=== PATIENT | female | born 1970 | race Caucasian/White ===

== ENCOUNTER 2016-12-20 20:10 | Outpatient (CLI) | payer MEDICAID ==
[~2016-12-20 20:10] MED LIST: ALPR2TAB6 PO; AMIT25TA9; ATOR40TA70; BUDE10.22 IH; CARB200T6; CYPR4TAB; DOXE150C PO; GLIP5TAB13 PO; HYDR-3812; HYDR-3820 PO; HYDR50CA PO; LEVO150T6 PO; METF500T8; MONT10TA24 PO; NITR0.4T; OLAN10TA19 PO; OLAN2.5T19; RT-ALBUINH; VENL75CA
--- OUTSIDE RECORDS SUMMARY | 2016-12-20 20:40 | XMS REPORT | Continuity of Care Document ---
Author Author [facility] Organization [facility] Address Unknown Phone Unavailable Care Team Providers Care Factory Expert Name Role Phone PCP Unavailable Source Comments Some departments are not documenting in the electronic medical record. If you do not see the information that you expected, contact Release of Information in the Health Information Management department at [phone] for further assistance in locating additional records.[facility] Active Allergies and Adverse Reactions Not on File Current Medications Not on file Active Problems Not on file Social History Tobacco Use Types Packs/Day Years Used Date Never Assessed Plan of Care Health Maintenance Due Date Last Done Comments Physical (Comprehensive) 1977 Exam Pertussis Vaccine 1981 Tetanus Vaccine 1987 Cervical Cancer Screening 1991 Breast Cancer Screening 2010 Influenza Vaccine 07/03/2016 Results from Last 3 Months Not on file
== END 2016-12-21 06:10 | disposition home or self-care (01) ==
LOC: SLEEP 20:10
PROVIDERS: ATTEND Internal Medicine Critical Care Medicine
DX: R06.83 Snoring (principal)
CPT/HCPCS: 95810

== ENCOUNTER → 2017-01-12 | Outpatient (CLI) | payer MEDICAID ==
[~2017-01-12] MED LIST changes: +ALBU1.25 IH; +ASPI-999 PO; +ATEN25TA PO; +ATOR40TA70 PO; +CIPR-225 PO; +CIPR500T4 PO; +ESLI400T PO; +INSU100I14 SQ; +INSU100I29 SQ; +LACO200T2 PO; +LEVO750T9 PO; +METR500T PO; +METR500T21 PO; +ONDA8TAB13 PO; +ONDA8TAB9 PO; +PROM25TA14 PO; +RANI150T11 PO; +RT-ALBUINH IH; +VENL150C98 PO; +VENL75CA93 PO
--- OUTSIDE RECORDS SUMMARY | 2017-01-12 09:15 | XMS REPORT | Continuity of Care Document ---
Author Author [facility] Organization [facility] Address Unknown Phone Unavailable Care Team Providers Care Director Of Optimization Name Role Phone PCP Unavailable Source Comments Some departments are not documenting in the electronic medical record. If you do not see the information that you expected, contact Release of Information in the Health Information Management department at [phone] for further assistance in locating additional records.[facility] Active Allergies and Adverse Reactions Not on [...]
--- NOTE | 2017-01-13 13:41 | ELECTROENCEPHALOPATHY REPORT ---
PROCEDURE PHYSICIAN: PRESTON HOLLEY DATE OF PROCEDURE: 01/12/2017 Ms. Humera Flores is a 46-year-old female with a history of seizure disorder for past 2 years. Seizures are described as tonic and a rigid activity and with shaking. Approximately 3 months ago she had dizzy spell and she fell and blacked out. This study was requested to evaluate for epileptiform activity. The background rhythm consisted of 8 to 9 Hz, 60 to 70 microvolts in amplitude, bilaterally symmetrical over the vertex region which was reactive to eye opening. Intermix were few left temporal sharp waves and few spike and wave activity in both frontal areas. Beta activity 16 to 20 Hz in frequency was noted. Movement and muscle artifacts were present. The patient was awake, drowsy and asleep during this recording. Hyperventilation was performed and there was build-up of mild diffuse slow wave activity. Intermittent photic stimulation was done at various flash frequencies and no photic driving response was seen. IMPRESSION: This EEG is abnormal in awake and sleepy states. The epileptiform activity described above is suggestive of a seizure focus in left temporal lobe and a generalized seizure activity as well. Clinical correlation is suggested. Job ID: [id number] Dictated Date: 01/13/2017 12:58:42 Encephalographer Date: 01/13/2017 13:36:40 / geronimo
== END ==
LOC: RT 09:12
PROVIDERS: ATTEND Psychiatry & Neurology Neurology
DX: R56.9 Unspecified convulsions (principal)
CPT/HCPCS: 95819

== ENCOUNTER 2017-01-23 12:34 | Emergency (ER) | payer MEDICAID ==
[~2017-01-23] VITALS: Ht 157.5 cm; Wt 90.7 kg
[~2017-01-23 12:34] MED LIST changes: -ALBU1.25 IH; -ASPI-999 PO; -ATEN25TA PO; -ATOR40TA70 PO; -CIPR-225 PO; -CIPR500T4 PO; -ESLI400T PO; -INSU100I14 SQ; -INSU100I29 SQ; -LACO200T2 PO; -LEVO750T9 PO; -METR500T PO; -METR500T21 PO; -ONDA8TAB13 PO; -ONDA8TAB9 PO; -PROM25TA14 PO; -RANI150T11 PO; -RT-ALBUINH IH; -VENL150C98 PO; -VENL75CA93 PO
--- NOTE | 2017-01-23 13:20 | ED General ---
General Stated Complaint: FEVER/CHILLS CONSTIPATION/DIARRHEA Source of Information: Patient Exam Limitations: No Limitations History of Present Illness Time Seen by Provider: 13:19 Initial Comments To ER with watery diarrhea as well as constipation, fever up to 103, productive cough and abdominal pain for the past 3-4 days. Timing/Duration: 3-4 Days Severity: Moderate Associated Systoms: Cough, Fever/Chills, Nausea/Vomiting Allergies and Home Medications Allergies Coded Allergies: Penicillins (Verified Allergy, Unknown, 06/16/06) Home Medications Albuterol Sulfate 6.7 Gm Hfa.aer.ad, #7 (Reported) Alprazolam 2 Mg Tablet, #75 (Reported) Atorvastatin Calcium 40 Mg Tablet, #30 (Reported) Budesonide/Formoterol Fumarate 10.2 Gm Hfa.aer.ad, #10 (Reported) Carbamazepine 200 Mg Tablet, #120 (Reported) Cyproheptadine HCl 4 Mg Tablet, #30 (Reported) Doxepin HCl 150 Mg Capsule, #30 (Reported) Glipizide 5 Mg Tablet, 5 MG PO DAILY, (Reported) Hydrocodone/Acetaminophen 1 Each Tablet, 1 EACH PO Q4H PRN for PAIN, #20 Ref 0 Prescribed by: JACKY ALCARAZ on 02/10/16 1302 Hydroxyzine Pamoate 50 Mg Capsule, 50 MG PO HS, (Reported) Levothyroxine Sodium 150 Mcg Tablet, 150 MCG PO DAILY, (Reported) Montelukast Sodium 10 Mg Tablet, #30 (Reported) Olanzapine 10 Mg Tablet, #30 (Reported) Olanzapine 2.5 Mg Tablet, #30 (Reported) Venlafaxine HCl 75 Mg Cap.er.24h, #90 (Reported) Constitutional: see HPI EENTM: see HPI Respiratory: see HPI, cough Gastrointestinal: abdominal pain, diarrhea Genitourinary: no symptoms reported Musculoskeletal: no symptoms reported Skin: no symptoms reported Psychiatric/Neurological: No Symptoms Reported Hematologic/Lymphatic: No Symptoms Reported Past Nxsgfbj-Vkvjwc-Fwcawe Hx Patient Social History Type Used: Cigarettes Recent Foreign Travel: No Contact w/Someone Who Travel: No Immunizations Up To Date Date of Pneumonia Vaccine: Jul 11, 2014 Surgeries HX Surgeries: No Respiratory Hx Respiratory Disorders: Yes Respiratory Disorders: COPD Cardiovascular Hx Cardiac Disorders: Yes Cardiac Disorders: Heart Attack, High Cholesterol, Hypertension Neurological Hx Neurological Disorders: No Genitourinary Hx Genitourinary Disorders: No Gastrointestinal Hx Gastrointestinal Disorders: No Musculoskeletal Hx Musculoskeletal Disorders: Yes (chronic pain) Endocrine Hx Endocrine Disorders: Yes Endocrine Disorders: Diabetes, Non-Insulin dep HEENT HX ENT Disorders: No Cancer Hx Cancer: No Psychosocial Hx Psychiatric Problems: No Family Medical History Significant Family History: No Pertinent Family Hx Physical Exam Vital Signs Vital Sign - Last 12Hours 01/23/17 12:43 Temp 97.6 Pulse 133 Resp 18 B/P (MAP) 144/98 Capillary Refill : General Appearance: No Apparent Distress, WD/WN Eyes: Bilateral Eye EOMI, Bilateral Eye Normal Inspection, Bilateral Eye PERRL HEENT: PERRL/EOMI, TMs Normal Neck: Full Range of Motion, Normal Inspection Respiratory: No Accessory Muscle Use, No Respiratory Distress Cardiovascular: Normal Peripheral Pulses, Tachycardia Gastrointestinal: Non Tender, Soft Neurologic/Psychiatric: Alert, Oriented x3 Skin: Normal Color, Warm/Dry Progress/Results/Core Measures Results/Orders Lab Results Laboratory Tests Test 01/23/17 13:15 01/23/17 14:06 Range/Units White Blood Count 7.4 4.3-11.0 10^3/uL Red Blood Count 4.59 4.35-5.85 10^6/uL Hemoglobin 15.1 11.5-16.0 G/DL Hematocrit 43 35-52 % Mean Corpuscular Volume 95 80-99 FL Mean Corpuscular Hemoglobin 33 25-34 PG Mean Corpuscular Hemoglobin Concent 35 32-36 G/DL Red Cell Distribution Width 12.7 10.0-14.5 % Platelet Count 276 130-400 10^3/uL Mean Platelet Volume 9.6 7.4-10.4 FL Neutrophils (%) (Auto) 70 42-75 % Lymphocytes (%) (Auto) 19 12-44 % Monocytes (%) (Auto) 8 0-12 % Eosinophils (%) (Auto) 3 0-10 % Basophils (%) (Auto) 0 0-10 % Neutrophils # (Auto) 5.2 1.8-7.8 X 10^3 Lymphocytes # (Auto) 1.4 1.0-4.0 X 10^3 Monocytes # (Auto) 0.6 0.0-1.0 X 10^3 Eosinophils # (Auto) 0.2 0.0-0.3 10^3/uL Basophils # (Auto) 0.0 0.0-0.1 10^3/uL Sodium Level 138 135-145 MMOL/L Potassium Level 4.3 3.6-5.0 MMOL/L Chloride Level 102 98-107 MMOL/L Carbon Dioxide Level 21 21-32 MMOL/L Anion Gap 15 H 5-14 MMOL/L Blood Urea Nitrogen 7 7-18 MG/DL Creatinine 0.89 0.60-1.30 MG/DL Estimat Glomerular Filtration Rate > 60 BUN/Creatinine Ratio 8 Glucose Level 220 H 70-105 MG/DL Calcium Level 9.8 8.5-10.1 MG/DL Total Bilirubin 0.4 0.1-1.0 MG/DL Aspartate Amino Transf (AST/SGOT) 30 5-34 U/L Alanine Aminotransferase (ALT/SGPT) 38 0-55 U/L Alkaline Phosphatase 93 40-136 U/L Total Protein 7.3 6.4-8.2 G/DL Albumin 4.2 3.2-4.5 G/DL Urine Color YELLOW Urine Clarity SLIGHTLY CLOUDY Urine pH 7 5-9 Urine Specific [place] 1.005 L 1.016-1.022 Urine Protein NEGATIVE NEGATIVE Urine Glucose (UA) NEGATIVE NEGATIVE Urine Ketones NEGATIVE NEGATIVE Urine Nitrite NEGATIVE NEGATIVE Urine Bilirubin NEGATIVE NEGATIVE Urine Urobilinogen NORMAL NORMAL MG/DL Urine Leukocyte Esterase NEGATIVE NEGATIVE Urine RBC (Auto) 1+ H NEGATIVE Urine RBC 0-2 /HPF Urine WBC NONE /HPF Urine Squamous Epithelial Cells 5-10 /HPF Urine Crystals NONE /LPF Urine Bacteria FEW H /HPF Urine Casts NONE /LPF Urine Mucus NEGATIVE /LPF Urine Culture Indicated NO Urine Opiates Screen NEGATIVE NEGATIVE Urine Oxycodone Screen NEGATIVE NEGATIVE Urine Methadone Screen NEGATIVE NEGATIVE Urine Propoxyphene Screen NEGATIVE NEGATIVE Urine Barbiturates Screen NEGATIVE NEGATIVE Ur Tricyclic Antidepressants Screen NEGATIVE NEGATIVE Urine Phencyclidine Screen NEGATIVE NEGATIVE Urine Amphetamines Screen NEGATIVE NEGATIVE Urine Methamphetamines Screen NEGATIVE NEGATIVE Urine Benzodiazepines Screen POSITIVE H NEGATIVE Urine Cocaine Screen NEGATIVE NEGATIVE Urine Cannabinoids Screen NEGATIVE NEGATIVE Micro Results Microbiology 01/23/17 Influenza Types A,B Antigen (BRITTNEY) - Final, Complete My Orders Orders - GALA TALLEY [employer] W[employer]ER Cbc With Automated Diff (01/23/17 12:48) Comprehensive Metabolic Panel (01/23/17 12:48) Ua Culture If Indicated (01/23/17 12:48) Drug Screen Stat (Urine) (01/23/17 12:48) Saline Lock/Iv-Start (01/23/17 12:48) Ekg Tracing (01/23/17 12:48) Continuous Ekg Monitoring (01/23/17 12:48) Chest Pa/Lat (2 View) (01/23/17 13:18) Ns Iv 1000 Ml (Sodium Chloride 0.9%) (01/23/17 13:30) Influenza A And B Antigens (01/23/17 13:18) Ct Abdomen/Pelvis Wo (01/23/17 13:18) Vital Signs/I&O Vital Sign - Last 12Hours 01/23/17 12:43 Temp 97.6 Pulse 133 Resp 18 B/P (MAP) 144/98 Diagnostic Imaging Diagonstic Imaging: CT Comments NAME: YANETH YAÑEZ [facility] REC#: [id number] PT STATUS: REG ER : 1970 PHYSICIAN: GALA TALLEY APRN ADMIT DATE: 01/23/17/ER Draft Date of Exam:01/23/17 CT ABDOMEN/PELVIS WO PROCEDURE: CT abdomen and pelvis without contrast. TECHNIQUE: Multiple contiguous axial images were obtained through the abdomen and pelvis without the use of intravenous contrast. INDICATION: Diarrhea and constipation with dizziness. Febrile. FINDINGS: The lung bases are clear. Liver appears normal. Gallbladder and bile ducts are normal. The pancreas and spleen are normal. The adrenal glands are normal. The kidneys appear normal without obstruction or mass. There are no calculi. Ureters are normal. Aorta appears normal. Stomach and small bowel are not distended. The colon shows diverticulosis of the descending colon with mesenteric edema adjacent to diverticula in the mid descending colon consistent with acute diverticulitis. This is causing considerable edema. There is moderate stool proximal to this with no stool in the distal colon. Uterus is absent. There is no free air or free fluid. No abscesses. IMPRESSION: 1. Findings are consistent with acute diverticulitis of the mid descending colon. This is short segment in nature. No evidence of bowel perforation or abscess. Dictated on workstation # [id number] Dict: 01/23/17 1439 Trans: 01/23/17 1448 [id number] Interpreted by: BETZAIDA NAGEL MD Electronically signed by: Departure Communication Progress Notes She is not nauseated currently and will be able to tolerate oral intake. We will treat at home. Impression Impression: Primary Impression: Diverticulitis Disposition: 01 HOME, SELF-CARE Condition: Improved Departure-Patient Inst. Decision time for Depature: 14:58 Referrals: [facility] (PCP/Family) Primary Care Physician Patient Instructions: Diverticulitis (DC) Add. Discharge Instructions: 1. Drink plenty of fluids 2. No seeds or nuts 3. Return to ER for any worsening pain, high fevers or inability to take your oral antibiotics because of nausea 4. Follow-up with your doctor next week Scripts Metronidazole (Flagyl) 500 Mg Tablet 500 MG PO TID, #21 TAB Prov: GALA TALLEY APRN 01/23/17 Ciprofloxacin HCl (Cipro) 500 Mg Tablet 500 MG PO BID, #14 TAB Prov: GALA TALLEY APRN 01/23/17 Ondansetron (Zofran Odt) 8 Mg Tab.rapdis 8 MG PO Q6H for Nausea, #10 TAB Prov: GALA TALLEY APRN 01/23/17 GALA TALLEY APRN Jan 23, 2017 13:20
[2017-01-23 13:22] LABS: BASOPHILS % (AUTO) 0 % (0-10); EOSINOPHILS # (AUTO) 0.2 10^3/uL (0.0-0.3); EOSINOPHILS % (AUTO) 3 % (0-10); LYMPHOCYTES # (AUTO) 1.4 X 10^3 (1.0-4.0); LYMPHOCYTES % (AUTO) 19 % (12-44); MEAN CORPUSCULAR HEMOGLOBIN 33 PG (25-34); MEAN CORPUSCULAR HGB CONC 35 G/DL (32-36); MEAN CORPUSCULAR VOLUME 95 FL (80-99); MEAN PLATELET VOLUME 9.6 FL (7.4-10.4); MONOCYTES # (AUTO) 0.6 X 10^3 (0.0-1.0); MONOCYTES % (AUTO) 8 % (0-12); NEUTROPHILS # (AUTO) 5.2 X 10^3 (1.8-7.8); NEUTROPHILS % (AUTO) 70 % (42-75); PLATELET COUNT 276 10^3/uL (130-400); RED BLOOD COUNT 4.59 10^6/uL (4.35-5.85); RED CELL DISTRIBUTION WIDTH 12.7 % (10.0-14.5); WHITE BLOOD COUNT 7.4 10^3/uL (4.3-11.0)
[2017-01-23 13:46] LABS: ALANINE AMINOTRANSFERASE 38 U/L (0-55); ALBUMIN 4.2 G/DL (3.2-4.5); ANION GAP 15 MMOL/L (5-14); ASPARTATE AMINO TRANSFERASE 30 U/L (5-34); BILIRUBIN,TOTAL 0.4 MG/DL (0.1-1.0); BLOOD UREA NITROGEN 7 MG/DL (7-18); BUN/CREATININE RATIO 8; CALCIUM 9.8 MG/DL (8.5-10.1); CARBON DIOXIDE 21 MMOL/L (21-32); CHLORIDE 102 MMOL/L (98-107); CREATININE SERUM 0.89 MG/DL (0.60-1.30); GFR ESTIMATED > 60; GLUCOSE 220 MG/DL (70-105); SODIUM 138 MMOL/L (135-145); TOTAL PROTEIN 7.3 G/DL (6.4-8.2)
[2017-01-23 13:47] LABS: POTASSIUM 4.3 MMOL/L (3.6-5.0)
[2017-01-23] MEDS: NS IV 1000 ML 1,000 ML IV SCH (13:49)
--- NOTE | 2017-01-23 14:11 | Diagnostic Imaging Report ---
INDICATION: Febrile with weakness and diarrhea. COMPARISON: 09/23/2016. FINDINGS: PA and lateral chest shows the lungs to be well aerated and clear. The heart is not enlarged. There is no hilar adenopathy. No pulmonary edema. No pneumothorax or pleural effusions. IMPRESSION: Normal PA and lateral chest. Dictated by: Dictated on workstation # [id number]
[2017-01-23 14:14] LABS: BILIRUBIN,URINE NEGATIVE (NEGATIVE); KETONES,URINE NEGATIVE (NEGATIVE); LEUKOCYTE ESTERASE ,URINE NEGATIVE (NEGATIVE); NITRITE,URINE NEGATIVE (NEGATIVE); PH,URINE 7 (5-9); PROTEIN,URINE NEGATIVE (NEGATIVE); UROBILINOGEN,URINE NORMAL (NORMAL)
--- NOTE | 2017-01-23 14:48 | Diagnostic Imaging Report ---
PROCEDURE: CT abdomen and pelvis without contrast. TECHNIQUE: Multiple contiguous axial images were obtained through the abdomen and pelvis without the use of intravenous contrast. INDICATION: Diarrhea and constipation with dizziness. Febrile. FINDINGS: The lung bases are clear. Liver appears normal. Gallbladder and bile ducts are normal. The pancreas and spleen are normal. The adrenal glands are normal. The kidneys appear normal without obstruction or mass. There are no calculi. Ureters are normal. Aorta appears normal. Stomach and small bowel are not distended. The colon shows diverticulosis of the descending colon with mesenteric edema adjacent to diverticula in the mid descending colon consistent with acute diverticulitis. This is causing considerable edema. There is moderate stool proximal to this with no stool in the distal colon. Uterus is absent. There is no free air or free fluid. No abscesses. IMPRESSION: 1. Findings are consistent with acute diverticulitis of the mid descending colon. This is short segment in nature. No evidence of bowel perforation or abscess. Dictated by: Dictated on workstation # [id number]
[2017-01-23] MEDS ORDERED: METR500T PO (14:59)
[2017-01-23] MEDS ORDERED: CIPR-225 PO (14:59)
[2017-01-23] MEDS ORDERED: ONDA8TAB9 PO (14:59)
[2017-01-23] MEDS: LEVOFLOXACIN 500 MG TAB (LEVAQUIN) PO ONE (15:10)
[2017-01-23] MEDS: KETOROLAC 30 MG/ML VIAL IVP ONE (15:10)
[2017-01-23] MEDS: metroNIDAZOLE 500 MG (FLAGYL) TAB PO ONE (15:10)
[2017-01-23 15:28] VITALS: BP 112/54
--- OUTSIDE RECORDS SUMMARY | 2017-01-25 12:35 | XMS REPORT ---
Author Author GERARDO KISER [facility] Address [address] [place] [address] Care Team Providers Care Building Trades Teacher Name Role Phone GERARDO KIESR Unavailable PROBLEMS Type Condition ICD9-CM Code [id number] Code Onset Dates Condition Status SNOMED Code Problem Diabetes E11.9 Active 28992259 Problem Type 2 diabetes mellitus 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s E11.9 Active 576053147 Problem Bilateral claudication of lower limb I73.9 Active 754847142 Problem Uncontrolled type 2 diabetes mellitus 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, without long-term 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 E11.65 Active 208010574 Problem History of hypertension Z86.79 Active 338763693 Problem Mood disorder F39 Active 77273774 Problem History of hypothyroidism Z86.39 Active 207868010 Problem Bipolar 2 disorder F31.81 Active 68271299 Problem Chronic post-traumatic stress disorder (PTSD) F43.12 Active 301860616 Problem Hypoglycemia E16.2 Active 167121780 Problem Type 2 diabetes mellitus with hyperglycemia E11.65 Active 511149444 Problem terminal gauger 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 Active 721595264 Problem Epilepsy G40.909 Active 25333371 Problem Tobacco abuse Z72.0 Active 94720496 Problem History of MD (myocardial infarction) I25.2 Active 992067641 Problem Panic disorder with agoraphobia F40.01 Active 11022548 Problem Lumbago M54.5 Active 856882266 Problem OAB (overactive bladder) N32.81 Active 423684746 Problem History of seizures Z87.898 Active 208973480 Problem Cervicalgia M54.2 Active 12397258 Problem Hepatitis C B19.20 Active 33474017 Problem History of high cholesterol Z86.39 Active 752663916 Problem Other chronic pain G89.29 Active 47680947 Problem COPD (chronic obstructive pulmonary disease) J44.9 Active 43121476 ALLERGIES Unknown Allergies SOCIAL HISTORY No smoking Hx information available PLAN OF CARE VITAL SIGNS MEDICATIONS Unknown Medications RESULTS No Results PROCEDURES No Known procedures IMMUNIZATIONS No Known Immunizations
--- OUTSIDE RECORDS SUMMARY | 2017-01-25 12:35 | XMS REPORT ---
Author Author GERARDO KISER [facility] Address [address] [place] [address] Care Team Providers Care Scrap Shear Operator Name Role Phone GERARDO KISER Unavailable PROBLEMS Type Condition ICD9-CM Code ORF38-OT Code Onset Dates Condition Status SNOMED Code Assessment Diabetes E11.9 12 Oct, 2016 Active 303765993 Problem Hepatitis C B19.20 Active 00586762 Problem History of seizures Z87.898 Active 327078268 Problem COPD (chronic obstructive pulmonary disease) J44.9 Active 92460958 Problem History of high cholesterol Z86.39 Active 032657369 Problem Diabetes E11.9 Active 33724471 Problem Type 2 diabetes mellitus 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s E11.9 Active 929062948 Problem Bilateral claudication of lower limb I73.9 Active 394795614 Problem Uncontrolled type 2 diabetes mellitus 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, without long-term 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 E11.65 Active 246295279 Problem Mood disorder F39 Active 66848148 Problem History of hypertension Z86.79 Active 828328441 Problem History of hypothyroidism Z86.39 Active 461824565 Problem Bipolar 2 disorder F31.81 Active 64184638 Problem Chronic post-traumatic stress disorder (PTSD) F43.12 Active 235399476 Problem Hypoglycemia E16.2 Active 822906280 Problem Type 2 diabetes mellitus with hyperglycemia E11.65 Active 188373610 Problem MCFP 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 Active 775717967 Problem Epilepsy G40.909 Active 71829308 Problem Tobacco abuse Z72.0 Active 81056579 Problem History of IA (myocardial infarction) I25.2 Active 076924435 Problem Panic disorder with agoraphobia F40.01 Active 14218194 Problem Lumbago M54.5 Active 519506294 Problem OAB (overactive bladder) N32.81 Active 082975483 Problem Cervicalgia M54.2 Active 73521299 Problem Other chronic pain G89.29 Active 27768100 ALLERGIES Substance Reaction Event Type Date Status Penicillin V Potassium Unknown Drug Allergy Oct, Active Metformin HCl diarrhea Drug Allergy Oct, Active SOCIAL HISTORY No smoking Hx information available PLAN OF CARE VITAL SIGNS Height 62 in 2016-10-13 Weight 196.1 lbs 2016-10-13 Heart Rate 80 bpm 2016-10-13 Respiratory Rate 20 2016-10-13 BMI 35.86 kg/m2 2016-10-13 Blood pressure systolic 106 mmHg 2016-10-13 Blood pressure diastolic 78 mmHg 2016-10-13 MEDICATIONS Medication Instructions Dosage Frequency Start Date End Date Duration Status Nitroglycerin 0.4 MG Sublingual 3 times a day, prn chest pain 1 tablet Dec, Active Levothyroxine Sodium 150 MCG Orally Once a day 1 tablet 24h Oct, Active Albuterol Sulfate 1.25 MG/3ML Inhalation 4 times a day 3 ml as needed 6h Apr, Active Aspirin 81 MG Orally Once a day 1 tablet 24h May, 30 day(s) Active Blood Glucose Monitor 1 glucometer test blood sugar Apr, Active Symbicort 160-4.5 MCG/ACT Inhalation Twice a day- rinse mouth and spit after use 2 puffs every day Apr, Active Olanzapine 2.5 MG TAKE ONE TABLET BY MOUTH ONCE DAILY IN THE MORNING Active NovoLog Mix 70/30 Flexpen (70-30) 100 UNIT/ML Subcutaneous 2 times a day Inject 10 units 12h Sep, Active ProAir HFA 108 (90 Base) MCG/ACT Inhalation 4 times a day 2 puffs as needed 6h Oct, Active Guaifenesin 400 MG Orally every 4 hrs 1 tablet as needed 4h Oct, Active Effexor XR 75 MG Orally Once a day 1 capsule 24h Apr, Active Atenolol 25 MG Orally Once a day 1 tablet 24h Active Xanax 2 MG Orally Three times a day 1 tablet 8h 18 Dec, 2015 Active Zyprexa 10 MG Orally Once a day at bedtime 1 tablet Active Test strips 1 test blood sugar Aug, Active Montelukast Sodium 10 mg Orally Once a day 1 tablet 24h Oct, 30 days Active Cyproheptadine HCl 4 MG Orally Once at bedtime for trauma nightmares 1 tablet Active Cetirizine HCl 10 mg Orally Once a day 1 tablet 24h Jul, Jan, 30 day(s) Active Nebulizer 1 as directed Apr, Active Java 10-325 MG Orally 2 times a day 1 tablet as needed 12h 16 Mar, 2016 Active Accu-Chek Compact Plus ... sub Q 3 times a day 1 test strip 8h Dec, Active Lipitor 40 mg Orally Once a day 1 tablet 24h Active Effexor XR 150 MG Orally Once a day 1 capsule 24h Apr, Active Doxepin HCl 150 MG TAKE ONE CAPSULE BY MOUTH ONCE DAILY AT BEDTIME Active RESULTS Name Result Date Reference Range A1C (IN HOUSE) 2016-10-13 A1C IN HOUSE 8.9 4.3 - 5.6 % Previous A1c 6.6 Lot [id number] Exp date 07/2018 PROCEDURES Procedure Date Ordered Related Diagnosis Body Site GLYCATED HEMOGLOBIN TEST Oct 13, 2016 Office Visit, Est Pt., Level 3 Oct 13, 2016 IMMUNIZATIONS No Known Immunizations
--- OUTSIDE RECORDS SUMMARY | 2017-01-25 12:35 | XMS REPORT ---
Author Author WOODROW MCCORMICK [facility] [employer] Address Unknown Phone Unavailable Care Team Providers Care Ambulance Driver Name Role Phone WOODROW MCCORMICK Unavailable Allergies No Known Allergies Problems Problem Type Condition Code Onset Dates Condition Status Problem History of high cholesterol Z86.39 Active Problem PTSD (post-traumatic stress disorder) F43.10 Active Problem History of hepatitis Z86.19 Active Problem Epilepsy G40.909 Active Problem Moderate depressed bipolar I disorder F31.32 Active Problem Panic disorder with agoraphobia F40.01 Active Problem History of hypothyroidism Z86.39 Active Problem Bipolar 2 disorder F31.81 Active Problem History of ID (myocardial infarction) I25.2 Active Problem History of hypertension Z86.79 Active Assessment Bipolar 2 disorder F31.81 Active Problem History of COPD Z87.09 Active Problem History of seizures Z87.898 Active Assessment PTSD (post-traumatic stress disorder) F43.10 Active Problem History of anxiety Z86.59 Active Medications No Known Medications Procedures Procedure Coding System Code Date Psychotherapy, patient &/family, 30 minutes, established patient CPT-4 61807 Nov 08, 2015 Results No Known Results Summary Purpose [employer] Submission
--- OUTSIDE RECORDS SUMMARY | 2017-01-25 12:36 | XMS REPORT ---
Author Author GERARDO KISER [facility] Address [address] [place] [address] Care Team Providers Care Director Of Estate Name Role Phone GERARDO KISER Unavailable PROBLEMS Type Condition ICD9-CM Code [id number] Code Onset Dates Condition Status SNOMED Code Problem Other chronic pain G89.29 Active 59637165 Problem OAB (overactive bladder) N32.81 Active 376729126 Problem Lumbago M54.5 Active 174881589 Problem Hypoglycemia E16.2 Active 759228609 Problem Type 2 diabetes mellitus 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s E11.9 Active 227304262 Problem COPD (chronic obstructive pulmonary disease) J44.9 Active 95777625 Problem Hepatitis C B19.20 Active 81188109 Problem Bilateral claudication of lower limb I73.9 Active 240518375 Problem Diabetes E11.9 Active 52834565 Problem Bipolar 2 disorder F31.81 Active 62286702 Problem History of hypothyroidism Z86.39 Active 635637479 Problem History of seizures Z87.898 Active 071121776 Problem History of high cholesterol Z86.39 Active 158113449 Problem Panic disorder with agoraphobia F40.01 Active 43137551 Problem Epilepsy G40.909 Active 05978474 Problem History of hypertension Z86.79 Active 635040421 Problem Tobacco abuse Z72.0 Active 95830267 Problem History of HI (myocardial infarction) I25.2 Active 160663118 Problem Cervicalgia M54.2 Active 90894524 ALLERGIES Unknown Allergies SOCIAL HISTORY No smoking Hx information available PLAN OF CARE VITAL SIGNS MEDICATIONS Unknown Medications RESULTS No Results PROCEDURES No Known procedures IMMUNIZATIONS No Known Immunizations
--- OUTSIDE RECORDS SUMMARY | 2017-01-25 12:36 | XMS REPORT ---
Author Author GERARDO KISER [facility] eClinicalWorks Address Unknown Phone Unavailable Care Team Providers Care Chromium Plater Name Role Phone GERARDO KISER CP Unavailable Allergies No Known Allergies Problems Problem Type Condition Code Onset Dates Condition Status Problem Other chronic pain G89.29 Active Problem OAB (overactive bladder) N32.81 Active Problem Lumbago M54.5 Active Problem Hypoglycemia E16.2 Active Problem Type 2 diabetes mellitus 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s E11.9 Active Problem Chronic post-traumatic stress disorder (PTSD) F43.12 Active Problem COPD (chronic obstructive pulmonary disease) J44.9 Active Problem Hepatitis C B19.20 Active Problem Bilateral claudication of lower limb I73.9 Active Problem Diabetes E11.9 Active Problem Bipolar 2 disorder F31.81 Active Problem History of hypothyroidism Z86.39 Active Problem History of seizures Z87.898 Active Problem History of high cholesterol Z86.39 Active Problem Panic disorder with agoraphobia F40.01 Active Problem Epilepsy G40.909 Active Problem History of hypertension Z86.79 Active Problem Tobacco abuse Z72.0 Active Problem History of [place] (myocardial infarction) I25.2 Active Problem Cervicalgia M54.2 Active Medications Medication Code System Code Instructions Start Date End Date Status Dosage [facility] [place] [address]-53 10-325 MG Orally 2 times a day March 17, 2016 1 tablet as needed Results No Known Results Summary Purpose eClinicalWorks Submission
--- OUTSIDE RECORDS SUMMARY | 2017-01-25 12:36 | XMS REPORT ---
Author GERARDO Hu [facility] eClinicalWorks Address Unknown Phone Unavailable Care Team Providers Care Sales Process Manager Name Role Phone GERARDO KISER CP Unavailable Allergies, Adverse Reactions, Alerts Substance Reaction Event Type Penicillin V Potassium Info Not Available Drug Allergy Metformin HCl diarrhea Drug Allergy Problems Problem Type Condition Code Onset Dates Condition Status Problem Lumbago M54.5 Active Problem Hepatitis C B19.20 Active Problem OAB (overactive bladder) N32.81 Active Problem Chronic post-traumatic stress disorder (PTSD) F43.12 Active Problem History of seizures Z87.898 Active Problem Hypoglycemia E16.2 Active Assessment Uncontrolled type 2 diabetes mellitus 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, without long-term 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 E11.65 Active Problem Uncontrolled type 2 diabetes mellitus 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, without long-term 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 E11.65 Active Problem Diabetes E11.9 Active Problem COPD (chronic obstructive pulmonary disease) J44.9 Active Problem Type 2 diabetes mellitus 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s E11.9 Active Problem Bilateral claudication of lower limb I73.9 Active Problem History of hypothyroidism Z86.39 Active Problem History of hypertension Z86.79 Active Problem History of high cholesterol Z86.39 Active Problem Bipolar 2 disorder F31.81 Active Problem Epilepsy G40.909 Active Problem Tobacco abuse Z72.0 Active Problem History of [place] (myocardial infarction) I25.2 Active Problem Cervicalgia M54.2 Active Problem Panic disorder with agoraphobia F40.01 Active Problem Other chronic pain G89.29 Active Medications Medication Code System Code Instructions Start Date End Date Status Dosage Cetirizine HCl [facility] [address]-79 10 mg Orally Once a day Jul 11, 2016 February 07, 2017 1 tablet Zyprexa [facility] 23335835550 10 MG Orally Once a day at bedtime 1 tablet Xanax [facility] [address]-02 2 MG Orally Three times a day Dec 20, 2015 1 tablet Olanzapine [facility] [address]-64 2.5 MG TAKE ONE TABLET BY MOUTH ONCE DAILY IN THE MORNING Blood Glucose Monitor ND 0 1 glucometer 2 times a day- DX E11.9 April 07, 2016 test blood sugar [place] [facility] [address]-80 10-325 MG Orally 2 times a day March 17, 2016 1 tablet as needed Symbicort [facility] [address]-99 160-4.5 MCG/ACT Inhalation Twice a day- rinse mouth and spit after use April 10, 2016 2 puffs every day ProAir HFA [facility] [address]-36 108 (90 Base) MCG/ACT Inhalation 4 times a day Oct 11, 2015 2 puffs as needed Test strips NDC 0 1 2 times a day, with lancets Aug 11, 2016 test blood sugar Effexor XR [facility] [address]-07 150 MG Orally Once a day April 29, 2016 1 capsule GlipiZIDE [facility] [address]-95 5 mg Orally Once a day 1/2 tablet Doxepin HCl [facility] 72101155913 150 MG TAKE ONE CAPSULE BY MOUTH ONCE DAILY AT BEDTIME Aspirin [facility] [address]-03 81 MG Orally Once a day May 14, 2016 1 tablet Montelukast Sodium [facility] [address]-38 10 mg Orally Once a day Oct 11, 2015 1 tablet Nebulizer ND 0 1 4 times a day, with tubing. DX: chronic bronchitis April 24, 2016 as directed Accu-Chek Compact Plus ND 0 ... sub Q 3 times a day January 04, 2016 1 test strip Effexor XR [facility] [address]-95 75 MG Orally Once a day April 29, 2016 1 capsule NovoLog Mix 70/30 Flexpen [facility] [address]-10 (70-30) 100 UNIT/ML Subcutaneous 2 times a day Sep 26, 2016 Inject 10 units Levothyroxine Sodium [facility] [address]-31 150 MCG Orally Once a day Oct 11, 2015 1 tablet Nitroglycerin [facility] [address]-68 0.4 MG Sublingual 3 times a day, prn chest pain January 31, 2016 1 tablet Cyproheptadine HCl [facility] 14016281284 4 MG Orally Once at bedtime for trauma nightmares 1 tablet Albuterol Sulfate [facility] [address]-96 1.25 MG/3ML Inhalation 4 times a day April 24, 2016 3 ml as needed Atenolol [facility] [address]-38 25 MG Orally Once a day 1 tablet Lipitor [facility] [address]-04 40 mg Orally Once a day 1 tablet Procedures Procedure Coding System Code Date Office Visit, Est Pt., Level 3 CPT-4 95299 Sep 26, 2016 GLUCOSE BLOOD TEST CPT-4 87433 Sep 26, 2016 Vital Signs Date/Time: Sep 26, 2016 Cardiac Monitoring Heart Rate 76 bpm Weight 195 lbs Height 62 in BMI 35.66 Index Blood Pressure Diastolic 68 mmHg Blood Pressure Systolic 104 mmHg Results Name Result Date Reference Range Unit Abnormality Flag GLUCOSE FINGERSTICK (IN HOUSE) ----GLU FINGERSTICK 392 [id number] ---- 12 [id number] ----Lot # [id number] ----Exp date 12/28/[id number] Summary Purpose eClinicalWorks Submission
--- OUTSIDE RECORDS SUMMARY | 2017-01-25 12:36 | XMS REPORT ---
Author Author FRANK LUNA [facility] eClinicalWorks Address Unknown Phone Unavailable Care Team Providers Care Inspector Agricultural Commodities Name Role Phone FRANK LUNA CP Unavailable Allergies No Known Allergies Problems Problem Type Condition Code Onset Dates Condition Status Problem Tobacco abuse Z72.0 Active Problem Other chronic pain G89.29 Active Problem Cervicalgia M54.2 Active Problem Bilateral claudication of lower limb I73.9 Active Problem Diabetes E11.9 Active Problem Type 2 diabetes mellitus 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s E11.9 Active Problem OAB (overactive bladder) N32.81 Active Problem Lumbago M54.5 Active Problem COPD (chronic obstructive pulmonary disease) J44.9 Active Problem Hepatitis C B19.20 Active Problem History of high cholesterol Z86.39 Active Problem PTSD (post-traumatic stress disorder) F43.10 Active Problem History of seizures Z87.898 Active Problem History of hypertension Z86.79 Active Problem History of [place] (myocardial infarction) I25.2 Active Problem Bipolar 2 disorder F31.81 Active Problem Panic disorder with agoraphobia F40.01 Active Problem History of hypothyroidism Z86.39 Active Problem Epilepsy G40.909 Active Medications Medication Code System Code Instructions Start Date End Date Status Dosage Xanax [facility] [address]-20 2 MG Orally Three times a day Dec 20, 2015 1 tablet Results No Known Results Summary Purpose eClinicalWorks Submission
--- OUTSIDE RECORDS SUMMARY | 2017-01-25 12:36 | XMS REPORT ---
Author Author GERARDO KISER Organization eClinicalWorks Address Unknown Phone Unavailable Care Team Providers Care Director Of Head [employer] Name Role Phone GERARDO KISER CP Unavailable Allergies No Known Allergies Problems Problem Type Condition Code Onset Dates Condition Status Problem Cervicalgia M54.2 Active Problem Lumbago M54.5 Active Problem Other chronic pain G89.29 Active Problem Type 2 diabetes mellitus 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s E11.9 Active Problem Bilateral claudication of lower limb I73.9 Active Problem Hypoglycemia E16.2 Active Problem Hepatitis C B19.20 Active Problem OAB (overactive bladder) N32.81 Active Problem Diabetes E11.9 Active Problem COPD (chronic obstructive pulmonary disease) J44.9 Active Problem PTSD (post-traumatic stress disorder) F43.10 Active Problem Bipolar 2 disorder F31.81 Active Problem History of seizures Z87.898 Active Problem History of high cholesterol Z86.39 Active Problem History of [place] (myocardial infarction) I25.2 Active Problem Panic disorder with agoraphobia F40.01 Active Problem History of hypothyroidism Z86.39 Active Problem Epilepsy G40.909 Active Problem History of hypertension Z86.79 Active Problem Tobacco abuse Z72.0 Active Medications No Known Medications Results No Known Results Summary Purpose eClinicalWorks Submission
--- OUTSIDE RECORDS SUMMARY | 2017-01-25 12:36 | XMS REPORT ---
Author Author CHAVA SHAFER [facility] eClinicalWorks Address Unknown Phone Unavailable Care Team Providers Care Gas Appliance Installer Name Role Phone CHAVA SHAFER CP Unavailable Allergies No Known Allergies Problems Problem Type Condition Code Onset Dates Condition Status Problem Panic disorder with agoraphobia F40.01 Active Problem Tobacco abuse Z72.0 Active Problem Epilepsy G40.909 Active Problem COPD (chronic obstructive pulmonary disease) J44.9 Active Problem Hepatitis C B19.20 Active Problem Diabetes E11.9 Active Problem Other chronic pain G89.29 Active Problem Cervicalgia M54.2 Active Problem OAB (overactive bladder) N32.81 Active Problem Lumbago M54.5 Active Assessment History of [place] (myocardial infarction) I25.2 Active Problem History of seizures Z87.898 Active Assessment History of high cholesterol Z86.39 Active Problem Bipolar 2 disorder F31.81 Active Problem History of hypothyroidism Z86.39 Active Problem History of high cholesterol Z86.39 Active Problem History of hypertension Z86.79 Active Problem PTSD (post-traumatic stress disorder) F43.10 Active Problem History of [place] (myocardial infarction) I25.2 Active Medications No Known Medications Procedures Procedure Coding System Code Date COMPREHEN METABOLIC PANEL CPT-4 95061 February 18, 2016 COMPLETE CBC W/AUTO DIFF WBC CPT-4 15645 February 18, 2016 ASSAY THYROID STIM HORMONE CPT-4 56465 February 18, 2016 VENIPUNCT, ROUTINE* CPT-4 14034 February 18, 2016 LIPID PANEL CPT-4 64554 February 18, 2016 ELECTROCARDIOGRAM, TRACING CPT-4 30793 February 18, 2016 Results Name Result Date Reference Range Unit Abnormality Flag LIPID PANEL ----HDL Cholesterol 52 32501148 >39 mg/dL ----VLDL Cholesterol Abe 30 98672388 5-40 mg/dL ----LDL Cholesterol Calc 91 43890473 0-99 mg/dL ----Cholesterol, Total 173 42991224 100-199 mg/dL ----Triglycerides 152 30909695 0-149 mg/dL H CMP ----Globulin, Total 2.1 52518882 1.5-4.5 g/dL ----eGFR If Africn Am 122 31959755 >59 mL/min/1.73 ----eGFR If NonAfricn Am 105 94396135 >59 mL/min/1.73 ----Albumin, Serum 4.4 10226856 3.5-5.5 g/dL ----Sodium, Serum 140 13485742 134-144 mmol/L ----Protein, Total, Serum 6.5 77768632 6.0-8.5 g/dL ----BUN/Creatinine Ratio 17 33785450 9-23 ----Calcium, Serum 8.9 33832731 8.7-10.2 mg/dL ----AST (SGOT) 14 45493293 0-40 IU/L ----Glucose, Serum 100 44333029 65-99 mg/dL H ----Alkaline Phosphatase, S 91 38940356 39-117 IU/L ----Bilirubin, Total 0.3 49753004 0.0-1.2 mg/dL ----Creatinine, Serum 0.69 93454055 0.57-1.00 mg/dL ----A/G Ratio 2.1 01606215 1.1-2.5 ----BUN 12 09501891 6-24 mg/dL ----Carbon Dioxide, Total 22 42035752 18-29 mmol/L ----ALT (SGPT) 19 34010596 0-32 IU/L ----Potassium, Serum 4.2 99406889 3.5-5.2 mmol/L ----Chloride, Serum 101 94959166 97-108 mmol/L ROUTINE VENIPUNCTURE TSH ----TSH 2.630 71473102 0.450-4.500 uIU/mL Summary Purpose eClinicalWorks Submission
--- OUTSIDE RECORDS SUMMARY | 2017-01-25 12:36 | XMS REPORT ---
Author Author FRANK LUNA Organization [facility] Address [address] [place] [address] Care Team Providers Care Automotive Light Mechanic Name Role Phone FRANK LUNA Unavailable PROBLEMS Type Condition ICD9-CM Code INA01-DX Code Onset Dates Condition Status SNOMED Code Problem Cervicalgia M54.2 Active 70639037 Problem Lumbago M54.5 Active 920196475 Problem Other chronic pain G89.29 Active 72145379 Problem Type 2 diabetes mellitus 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s E11.9 Active 923690686 Problem Bilateral claudication of lower limb I73.9 Active 376598939 Problem Hepatitis C B19.20 Active 22518126 Problem OAB (overactive bladder) N32.81 Active 532051942 Problem Diabetes E11.9 Active 05565754 Problem COPD (chronic obstructive pulmonary disease) J44.9 Active 70990058 Problem History of high cholesterol Z86.39 Active 371990312 Problem Bipolar 2 disorder F31.81 Active 82829939 Problem History of seizures Z87.898 Active 547453234 Problem History of [place] (myocardial infarction) I25.2 Active 823037054 Problem Panic disorder with agoraphobia F40.01 Active 81204005 Problem History of hypothyroidism Z86.39 Active 207630955 Problem Epilepsy G40.909 Active 67214142 Problem History of hypertension Z86.79 Active 065054193 Problem Tobacco abuse Z72.0 Active 43536397 ALLERGIES Unknown Allergies SOCIAL HISTORY No smoking Hx information available PLAN OF CARE VITAL SIGNS MEDICATIONS Medication Instructions Dosage Frequency Start Date End Date Duration Status Doxepin HCl 150 MG TAKE ONE CAPSULE BY MOUTH ONCE DAILY AT BEDTIME Active RESULTS No Results PROCEDURES No Known procedures IMMUNIZATIONS No Known Immunizations
--- OUTSIDE RECORDS SUMMARY | 2017-01-25 12:36 | XMS REPORT ---
Author Author UMAIR GONZALEZ Organization eClinicalWorks Address Unknown Phone Unavailable Care Team Providers Care Seam Presser Name Role Phone UMAIR GONZALEZ CP Unavailable Allergies No Known Allergies Problems Problem Type Condition Code Onset Dates Condition Status Problem History of COPD Z87.09 Active Problem History of anxiety Z86.59 Active Problem History of seizures Z87.898 Active Assessment Elevated fasting glucose R73.01 Active Problem History of hypertension Z86.79 Active Problem History of hypothyroidism Z86.39 Active Problem History of [place] (myocardial infarction) I25.2 Active Problem History of hepatitis Z86.19 Active Problem History of high cholesterol Z86.39 Active Problem Bipolar 2 disorder F31.81 Active Problem PTSD (post-traumatic stress disorder) F43.10 Active Medications No Known Medications Procedures Procedure Coding System Code Date ASSAY OF INSULIN CPT-4 69540 Oct 24, 2015 VENIPUNCT, ROUTINE* CPT-4 82440 Oct 24, 2015 ASSAY, GLUCOSE, BLOOD QUANT CPT-4 41527 Oct 24, 2015 Results Name Result Date Reference Range Unit Abnormality Flag ROUTINE VENIPUNCTURE Summary Purpose eClinicalWorks Submission
--- OUTSIDE RECORDS SUMMARY | 2017-01-25 12:36 | XMS REPORT ---
Author Author UMAIR GONZALEZ Organization eClinicalWorks Address Unknown Phone Unavailable Care Team Providers Care Belt Changer Name Role Phone UMAIR GONZALEZ CP Unavailable Allergies No Known Allergies Problems Problem Type Condition Code Onset Dates Condition Status Problem History of COPD Z87.09 Active Problem History of anxiety Z86.59 Active Problem History of seizures Z87.898 Active Assessment History of COPD Z87.09 Active Problem History of hypertension Z86.79 Active Problem History of hypothyroidism Z86.39 Active Problem History of [place] (myocardial infarction) I25.2 Active Problem History of hepatitis Z86.19 Active Problem History of high cholesterol Z86.39 Active Problem Bipolar 2 disorder F31.81 Active Problem PTSD (post-traumatic stress disorder) F43.10 Active Medications No Known Medications Procedures Procedure Coding System Code Date SPIROMETRY CPT-4 35988 Oct 18, 2015 RESPIRATORY FLOW VOLUME LOOP CPT-4 06487 Oct 18, 2015 NEB/MDI DEMO CPT-4 45534 Oct 18, 2015 SPRIOMETRY CHALLENGE CPT-4 23093 Oct 18, 2015 Results Name Result Date Reference Range Unit Abnormality Flag PULMONARY EDUCATION (IN-HOUSE) RESPIRATORY FLOW VOLUME LOOP (IN-HOUSE) BRONCHODILATION PRE/POST (IN-HOUSE) Summary Purpose eClinicalWorks Submission
--- OUTSIDE RECORDS SUMMARY | 2017-01-25 12:37 | XMS REPORT ---
Author Author WOODROW MCCORMICK [facility] eClinicalWorks Address Unknown Phone Unavailable Care Team Providers Care Gum Scoring Machine Operator Name Role Phone WOODROW MCCORMICK CP Unavailable Allergies, Adverse Reactions, Alerts Substance Reaction Event Type Penicillin V Potassium Info Not Available Drug Allergy Metformin HCl diarrhea Drug Allergy Problems Problem Type Condition Code Onset Dates Condition Status Problem Panic disorder with agoraphobia F40.01 Active Problem Tobacco abuse Z72.0 Active Problem Epilepsy G40.909 Active Problem COPD (chronic obstructive pulmonary disease) J44.9 Active Assessment PTSD (post-traumatic stress disorder) F43.10 Active Problem Hepatitis C B19.20 Active Problem Diabetes E11.9 Active Problem Other chronic pain G89.29 Active Problem Cervicalgia M54.2 Active Problem OAB (overactive bladder) N32.81 Active Problem Lumbago M54.5 Active Assessment Bipolar 2 disorder F31.81 Active Problem History of seizures Z87.898 Active Assessment Tobacco abuse Z72.0 Active Assessment Panic disorder with agoraphobia F40.01 Active Problem Bipolar 2 disorder F31.81 Active Problem History of hypothyroidism Z86.39 Active Problem History of high cholesterol Z86.39 Active Problem History of hypertension Z86.79 Active Problem PTSD (post-traumatic stress disorder) F43.10 Active Problem History of [place] (myocardial infarction) I25.2 Active Medications No Known Medications Procedures Procedure Coding System Code Date Psychotherapy, patient &/family, 45 minutes, established patient CPT-4 44839 February 18, 2016 Results No Known Results Summary Purpose eClinicalWorks Submission
--- OUTSIDE RECORDS SUMMARY | 2017-01-25 12:37 | XMS REPORT ---
Author Author GERARDO KISER [facility] Address [address] [place] [address] Care Team Providers Care Mammalogy Teacher Name Role Phone GERARDO KISER Unavailable PROBLEMS Type Condition ICD9-CM Code VFP15-AG Code Onset Dates Condition Status SNOMED Code Problem Diabetes E11.9 Active 78132743 Problem Type 2 diabetes mellitus 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s E11.9 Active 284537280 Problem Bilateral claudication of lower limb I73.9 Active 029795550 Problem Uncontrolled type 2 diabetes mellitus 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, without long-term 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 E11.65 Active 910941932 Problem History of hypertension Z86.79 Active 484956908 Problem Mood disorder F39 Active 87983865 Problem History of hypothyroidism Z86.39 Active 133159019 Problem Bipolar 2 disorder F31.81 Active 00641968 Problem Chronic post-traumatic stress disorder (PTSD) F43.12 Active 911846592 Problem Hypoglycemia E16.2 Active 380479194 Problem Type 2 diabetes mellitus with hyperglycemia E11.65 Active 629931967 Problem 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 Active 366924545 Problem Epilepsy G40.909 Active 26008090 Problem Tobacco abuse Z72.0 Active 67154549 Problem History of [place] (myocardial infarction) I25.2 Active 866964470 Problem Panic disorder with agoraphobia F40.01 Active 55571659 Problem Lumbago M54.5 Active 689396982 Problem OAB (overactive bladder) N32.81 Active 157077112 Problem History of seizures Z87.898 Active 995357694 Problem Cervicalgia M54.2 Active 78273442 Problem Hepatitis C B19.20 Active 89021556 Problem History of high cholesterol Z86.39 Active 970078562 Problem Other chronic pain G89.29 Active 49987260 Problem COPD (chronic obstructive pulmonary disease) J44.9 Active 10966858 ALLERGIES Unknown Allergies SOCIAL HISTORY No smoking Hx information available PLAN OF CARE VITAL SIGNS MEDICATIONS Medication Instructions Dosage Frequency Start Date End Date Duration Status NovoLog Mix 70/30 Flexpen (70-30) 100 UNIT/ML Subcutaneous 2 times a day Inject 10 units 12h 25 Sep, 2016 Active RESULTS No Results PROCEDURES No Known procedures IMMUNIZATIONS No Known Immunizations
--- OUTSIDE RECORDS SUMMARY | 2017-01-25 12:37 | XMS REPORT ---
Author Author FRANK LUNA [facility] eClinicalWorks Address Unknown Phone Unavailable Care Team Providers Care Professor Of Visual Arts Name Role Phone FRANK LUNA CP Unavailable [...] of hypertension Z86.79 Active Problem History of [place] (myocardial infarction) I25.2 Active Problem Bipolar 2 disorder F31.81 Active Problem Panic disorder with agoraphobia F40.01 Active Problem History of hypothyroidism Z86.39 Active Problem Epilepsy G40.909 Active Medications Medication Code System Code Instructions Start Date End Date Status Dosage Xanax [facility] [address]-02 2 MG Orally Three times a day Dec 20, 2015 1 tablet Results No Known Results Summary Purpose eClinicalWorks Submission
--- OUTSIDE RECORDS SUMMARY | 2017-01-25 12:37 | XMS REPORT ---
Author Author CHAVA SHAFER [facility] [place] eClinicalWorks Address Unknown Phone Unavailable Care Team Providers Care Classroom Aide Name Role Phone CHAVA SHAFER CP Unavailable Allergies, Adverse Reactions, Alerts Substance [...] N32.81 Active Problem Lumbago M54.5 Active Assessment Fracture of fifth metatarsal bone of right foot S92.351A Active Problem History of seizures Z87.898 Active Problem Bipolar 2 disorder F31.81 Active Problem History of hypothyroidism Z86.39 Active Problem History of high cholesterol Z86.39 Active Problem History of hypertension Z86.79 Active Problem PTSD (post-traumatic stress disorder) F43.10 Active Problem History of [place] (myocardial infarction) I25.2 Active Medications Medication Code System Code Instructions Start Date End Date Status Dosage Cyproheptadine HCl [facility] [address]-91 4 MG Orally Once at bedtime for trauma nightmares Nov 08, 2015 2 tablets Venlafaxine HCl ER [facility] [address]-04 75 MG Orally 3 times a day Oct 11, 2015 1 capsule with food Levothyroxine Sodium [facility] [address]-87 150 MCG Orally Once a day Oct 11, 2015 1 tablet Montelukast Sodium [facility] [address]-54 10 MG Orally Once a day Oct 11, 2015 1 tablet Atenolol [facility] [address]-03 25 MG Orally Once a day 1 tablet Zyprexa [facility] [address]-95 2.5 MG Orally Once a day in the am Oct 11, 2015 1 tablet Lipitor [facility] [address]-87 40 MG Orally Once a day 1 tablet Carbamazepine [facility] [address]-89 200 MG Orally 2 tab in the morning and 2 tablets at bedtime 1 tablet Accu-Chek Compact Plus ND 0 ... sub Q 3 times a day January 04, 2016 1 test strip Hydrocodone-Acetaminophen [facility] [address]-87 5-325 MG Orally Once a day, hs Dec 25, 2015 1 tablet as needed Doxepin HCl [facility] [address]-48 100 MG Orally Once at bedtime for sleep Oct 11, 2015 1 capsule Symbicort [facility] [address]-05 80-4.5 MCG/ACT Inhalation Twice a day Nov 07, 2015 2 puffs Xanax [facility] [address]-97 2 MG Orally 1 tab in the AM & HS and 1/2 tab at 2pm Dec 20, 2015 1 tablet Amitriptyline HCl [facility] [address]-26 25 MG Orally Once at bedtime for sleep January 17, 2016 1 tablet Zyprexa [facility] [address]-49 10 MG Orally Once a day at bedtime Oct 11, 2015 1 tablet ProAir HFA [facility] [address]-18 108 (90 Base) MCG/ACT Inhalation every 4 hrs Oct 11, 2015 2 puffs as needed Procedures Procedure Coding System Code Date Office Visit, [place] Pt., Level 2 CPT-4 10489 February 12, 2016 Vital Signs Date/Time: February 12, 2016 Temperature 98.0 F Weight 194 lbs Height 62 in BMI 35.48 Index Blood Pressure Diastolic 78 mmHg Blood Pressure Systolic 132 mmHg Cardiac Monitoring Heart Rate 80 bpm Results No Known Results Summary Purpose eClinicalWorks Submission
--- OUTSIDE RECORDS SUMMARY | 2017-01-25 12:37 | XMS REPORT ---
Author Author GERARDO KISER Organization eClinicalWorks Address Unknown Phone Unavailable Care Team Providers Care Resource Management Planner Name Role Phone GERARDO KISER CP Unavailable [...] Problem PTSD (post-traumatic stress disorder) F43.10 Active Assessment Chronic bronchitis, unspecified chronic bronchitis type J42 Active Problem History of seizures Z87.898 Active Problem History of hypertension Z86.79 Active Problem History of [place] (myocardial infarction) I25.2 Active Problem Bipolar 2 disorder F31.81 Active Problem Panic disorder with agoraphobia F40.01 Active Problem History of hypothyroidism Z86.39 Active Problem Epilepsy G40.909 Active Medications Medication Code System Code Instructions Start Date End Date Status Dosage [facility] [address]-02 7.5-325 MG Orally 2 times a day March 17, 2016 1 tablet as needed Results No Known Results Summary Purpose eClinicalWorks Submission
--- OUTSIDE RECORDS SUMMARY | 2017-01-25 12:37 | XMS REPORT ---
Author Author GERARDO KISER Organization eClinicalWorks Address Unknown Phone Unavailable Care Team Providers Care Bricklayer Name Role Phone GERARDO KISER CP Unavailable [...] Z86.39 Active Problem Epilepsy G40.909 Active Medications No Known Medications Results No Known Results Summary Purpose eClinicalWorks Submission
--- OUTSIDE RECORDS SUMMARY | 2017-01-25 12:37 | XMS REPORT ---
Author Author WOODROW MCCORMICK eClinicalWorks Address Unknown Phone Unavailable Care Team Providers Care Child Care Associate Teacher Name Role Phone WOODROW MCCORMICK CP Unavailable Allergies No Known Allergies Problems Problem Type Condition Code Onset Dates Condition Status Problem Tobacco abuse Z72.0 Active Problem Other chronic pain G89.29 Active Problem Cervicalgia M54.2 Active Problem Bilateral claudication of lower limb I73.9 Active Assessment PTSD (post-traumatic stress disorder) F43.10 Active Problem Diabetes E11.9 Active Assessment Panic disorder with agoraphobia F40.01 Active Problem Type 2 diabetes mellitus 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s E11.9 Active Problem OAB (overactive bladder) N32.81 Active Problem Lumbago M54.5 Active Problem COPD (chronic obstructive pulmonary disease) J44.9 Active Problem Hepatitis C B19.20 Active Problem History of high cholesterol Z86.39 Active Problem PTSD (post-traumatic stress disorder) F43.10 Active Assessment Bipolar 2 disorder F31.81 Active Problem History of seizures Z87.898 Active Problem History of hypertension Z86.79 Active Problem History of [place] (myocardial infarction) I25.2 Active Problem Bipolar 2 disorder F31.81 Active Problem Panic disorder with agoraphobia F40.01 Active Problem History of hypothyroidism Z86.39 Active Problem Epilepsy G40.909 Active Medications No Known Medications Procedures Procedure Coding System Code Date Psychotherapy, patient &/family, 30 minutes, established patient CPT-4 84876 May 26, 2016 Results No Known Results Summary Purpose eClinicalWorks Submission
--- OUTSIDE RECORDS SUMMARY | 2017-01-25 12:37 | XMS REPORT ---
Author Author GERARDO KISER Organization eClinicalWorks Address Unknown Phone Unavailable Care Team Providers Care Supervisor Cabinetmaker Name Role Phone GERARDO KISER CP Unavailable [...] high cholesterol Z86.39 Active Problem History of [place] (myocardial infarction) I25.2 Active Problem Panic disorder with agoraphobia F40.01 Active Problem History of hypothyroidism Z86.39 Active Problem Epilepsy G40.909 Active Problem History of hypertension Z86.79 Active Problem Tobacco abuse Z72.0 Active Medications No Known Medications Results No Known Results Summary Purpose eClinicalWorks Submission
--- OUTSIDE RECORDS SUMMARY | 2017-01-25 12:38 | XMS REPORT ---
Author GERARDO Hu [facility] eClinicalWorks Address Unknown Phone Unavailable Care Team Providers Care Call Or Contact Centre Coach Name Role Phone GERARDO KISER CP Unavailable Allergies, Adverse Reactions, Alerts Substance Reaction Event Type Penicillin V Potassium Info Not Available Drug Allergy Metformin HCl diarrhea Drug Allergy Problems Problem Type Condition Code Onset Dates Condition Status Problem Cervicalgia M54.2 Active Problem Lumbago M54.5 Active Problem Other chronic pain G89.29 Active Problem Type 2 diabetes mellitus 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s E11.9 Active Assessment Hypoglycemia E16.2 Active Problem Bilateral claudication of lower limb I73.9 Active Assessment Bilateral impacted cerumen H61.23 Active Problem Hypoglycemia E16.2 Active Problem Hepatitis C B19.20 Active Problem OAB (overactive bladder) N32.81 Active Problem Diabetes E11.9 Active Problem COPD (chronic obstructive pulmonary disease) J44.9 Active Problem PTSD (post-traumatic stress disorder) F43.10 Active Problem Bipolar 2 disorder F31.81 Active Problem History of seizures Z87.898 Active Problem History of high cholesterol Z86.39 Active Problem History of [place] (myocardial infarction) I25.2 Active Problem Panic disorder with agoraphobia F40.01 Active Problem History of hypothyroidism Z86.39 Active Problem Epilepsy G40.909 Active Problem History of hypertension Z86.79 Active Problem Tobacco abuse Z72.0 Active Medications Medication Code System Code Instructions Start Date End Date Status Dosage [place] [facility] [address]-16 10-325 MG Orally 2 times a day, may refill if she brings in the remainder of her previous refill March 17, 2016 1 tablet as needed Latuda [facility] [address]-15 40 mg Orally with evening meal and 350 kcal Jul 17, 2016 1 tablet with food Effexor XR [facility] [address]-89 75 MG Orally Once a day April 29, 2016 1 capsule Lipitor [facility] [address]-12 40 mg Orally Once a day 1 tablet GlipiZIDE [facility] [address]-93 5 mg Orally Once a day 1/2 tablet Aspirin [facility] [address]-77 81 MG Orally Once a day May 14, 2016 1 tablet Doxepin HCl [facility] 22955381820 150 MG TAKE ONE CAPSULE BY MOUTH ONCE DAILY AT BEDTIME Test strips NDC 0 1 2 times a day, with lancets Aug 11, 2016 test blood sugar ProAir HFA [facility] [address]-80 108 (90 Base) MCG/ACT Inhalation 4 times a day Oct 11, 2015 2 puffs as needed Accu-Chek Compact Plus ND 0 ... sub Q 3 times a day January 04, 2016 1 test strip Montelukast Sodium [facility] [address]-26 10 mg Orally Once a day Oct 11, 2015 1 tablet Cetirizine HCl [facility] [address]-86 10 mg Orally Once a day Jul 11, 2016 February 07, 2017 1 tablet Atenolol [facility] [address]-54 25 MG Orally Once a day 1 tablet Zyprexa [facility] [address]-98 10 mg Orally Once a day at bedtime 1/2 tablet Cyproheptadine HCl [facility] 61148850794 4 MG Orally Once at bedtime for trauma nightmares 1 tablet Nebulizer ND 0 1 4 times a day, with tubing. DX: chronic bronchitis April 24, 2016 as directed Effexor XR [facility] [address]-22 150 MG Orally Once a day April 29, 2016 1 capsule Olanzapine [facility] [address]-93 2.5 MG TAKE ONE TABLET BY MOUTH ONCE DAILY IN THE MORNING Xanax [facility] [address]-13 2 MG Orally Three times a day Dec 20, 2015 1 tablet Levothyroxine Sodium [facility] [address]-45 150 MCG Orally Once a day Oct 11, 2015 1 tablet Albuterol Sulfate [facility] [address]-82 1.25 MG/3ML Inhalation 4 times a day April 24, 2016 3 ml as needed Nitroglycerin [facility] [address]-43 0.4 MG Sublingual 3 times a day, prn chest pain January 31, 2016 1 tablet Blood Glucose Monitor ND 0 1 glucometer 2 times a day- DX E11.9 April 07, 2016 test blood sugar Debrox [facility] [address]-45 6.5 % Otic 2 times a day Aug 11, 2016 Aug 25, 2016 4 drops in affected ear Symbicort [facility] [address]-48 160-4.5 MCG/ACT Inhalation Twice a day- rinse mouth and spit after use April 10, 2016 2 puffs every day Procedures Procedure Coding System Code Date Office Visit, Est Pt., Level 3 CPT-4 84260 Aug 11, 2016 Vital Signs Date/Time: Aug 11, 2016 Cardiac Monitoring Heart Rate 88 bpm Weight 189.0 lbs Height 62 in BMI 34.56 Index Blood Pressure Diastolic 77 mmHg Blood Pressure Systolic 106 mmHg Results No Known Results Summary Purpose eClinicalWorks Submission
--- OUTSIDE RECORDS SUMMARY | 2017-01-25 12:38 | XMS REPORT ---
Author Author GERARDO KISER [facility] eClinicalWorks Address Unknown Phone Unavailable Care Team Providers Care Armature Winder [employer]otive Name Role Phone GERARDO KISER CP Unavailable [...] Tobacco abuse Z72.0 Active Problem History of [place] (myocardial infarction) I25.2 Active Problem Cervicalgia M54.2 Active Medications No Known Medications Results No Known Results Summary Purpose eClinicalWorks Submission
--- OUTSIDE RECORDS SUMMARY | 2017-01-25 12:38 | XMS REPORT ---
Author Author WOODROW MCCORMICK [facility] eClinicalWorks Address Unknown Phone Unavailable Care Team Providers Care Milling General Superintendent Name Role Phone WOODROW MCCORMICK CP Unavailable Allergies, Adverse Reactions, Alerts Substance Reaction Event Type Penicillamine anaphylaxis Drug Allergy Problems Problem Type Condition Code [...] 2 disorder F31.81 Active Problem History of [place] (myocardial infarction) I25.2 Active Problem History of hypertension Z86.79 Active Assessment Panic disorder with agoraphobia F40.01 Active Assessment History of COPD Z87.09 Active Assessment Moderate depressed bipolar I disorder F31.32 Active Assessment Bipolar 2 disorder F31.81 Active Problem History of COPD Z87.09 Active Assessment History of anxiety Z86.59 Active Problem History of seizures Z87.898 Active Assessment PTSD (post-traumatic stress disorder) F43.10 Active Problem History of anxiety Z86.59 Active Medications No Known Medications Procedures Procedure Coding System Code Date Psychotherapy, patient &/family, 30 minutes, established patient CPT-4 01122 Nov 15, 2015 Results No Known Results Summary Purpose eClinicalWorks Submission
--- OUTSIDE RECORDS SUMMARY | 2017-01-25 12:38 | XMS REPORT ---
Author Author UMAIR GONZALEZ Organization eClinicalWorks Address Unknown Phone Unavailable Care Team Providers Care Steel Post Installer Supervisor Name Role Phone UMAIR GONZALEZ CP Unavailable Allergies, Adverse Reactions, Alerts Substance Reaction Event Type Penicillin G Benzathine anaphylaxis Drug Allergy Problems Problem Type Condition Code Onset Dates Condition Status Problem History of COPD Z87.09 Active Problem History of anxiety Z86.59 Active Problem History of seizures Z87.898 Active Problem History of hypertension Z86.79 Active Assessment History of COPD Z87.09 Active Problem History of hypothyroidism Z86.39 Active Problem History of [place] (myocardial infarction) I25.2 Active Problem History of hepatitis Z86.19 Active Problem History of high cholesterol Z86.39 Active Problem Bipolar 2 disorder F31.81 Active Problem PTSD (post-traumatic stress disorder) F43.10 Active Assessment History of anxiety Z86.59 Active Assessment History of high cholesterol Z86.39 Active Assessment History of [place] (myocardial infarction) I25.2 Active Assessment History of seizures Z87.898 Active Assessment Bipolar 2 disorder F31.81 Active Assessment History of hypothyroidism Z86.39 Active Assessment History of hepatitis Z86.19 Active Assessment History of hypertension Z86.79 Active Assessment PTSD (post-traumatic stress disorder) F43.10 Active Assessment General medical exam Z00.00 Active Medications Medication Code System Code Instructions Start Date End Date Status Dosage Carbamazepine [facility] [address]-85 200 MG Orally Twice a day [address] [facility] [address]-46 25 MG Orally Once a day 1 [address] Sodium [facility] [address]-26 10 MG Orally Once a day Oct 11, 2015 1 tablet in the evening Levothyroxine Sodium [facility] [address]-23 150 MCG Orally Once a day Oct 11, 2015 1 tablet Doxepin HCl [facility] [address]-61 150 MG Orally Once a day 1 capsule at bedtime Zyprexa [facility] [address]-67 10 MG Orally Once a day at bedtime Oct 11, [address] [facility] [address]-43 40 MG Orally Once a day [address] [facility] [address]-70 2 MG Orally Once a day Oct 11, [address] [facility] [address]-78 108 (90 Base) MCG/ACT Inhalation every 4 hrs Oct 11, 2015 2 puffs as needed Zyprexa [facility] [address]-46 2.5 MG Orally Once a day in the am Oct 11, 2015 1 tablet Venlafaxine HCl ER [facility] [address]-80 75 MG Orally 3 times a day Oct 11, 2015 1 capsule with food Doxepin HCl [facility] [address]-42 150 MG Orally Once a day Oct 11, 2015 1 capsule at bedtime Procedures Procedure Coding System Code Date GLYCATED HEMOGLOBIN TEST CPT-4 76623 Oct 11, 2015 Office Visit, Est Pt., Level 4 CPT-4 62357 Oct 11, 2015 ELECTROCARDIOGRAM, TRACING CPT-4 11445 Oct 11, 2015 Vital Signs Date/Time: Oct 11, 2015 BMI 23.76 Index Weight 129.9 lbs Height 62 in Results Name Result Date Reference Range Unit Abnormality Flag A1C (IN HOUSE) ----A1C IN HOUSE 5.9 [id number] 4.30 - 5.6 % ----Lot # [id number] ----Exp date [id number] EKG, TRACING (IN-HOUSE) Summary Purpose eClinicalWorks Submission
--- OUTSIDE RECORDS SUMMARY | 2017-01-25 12:38 | XMS REPORT ---
Author Author GERARDO KISER Organization eClinicalWorks Address Unknown Phone Unavailable Care Team Providers Care Top Icer Name Role Phone GERARDO KISER CP Unavailable [...]
--- OUTSIDE RECORDS SUMMARY | 2017-01-25 12:38 | XMS REPORT ---
Author Author WOODROW MCCORMICK [facility] eClinicalWorks Address Unknown Phone Unavailable Care Team Providers Care Mixing And Dispensing Supervisor Name Role Phone WOODROW MCCORMICK CP Unavailable [...] of hypertension Z86.79 Active Problem History of [place] (myocardial infarction) I25.2 Active Problem Bipolar 2 disorder F31.81 Active Problem Panic disorder with agoraphobia F40.01 Active Problem History of hypothyroidism Z86.39 Active Problem Epilepsy G40.909 Active Medications No Known Medications Procedures Procedure Coding System Code Date Psychotherapy, patient &/family, 30 minutes, established patient CPT-4 01852 Jun 25, 2016 Results No Known Results Summary Purpose eClinicalWorks Submission
--- OUTSIDE RECORDS SUMMARY | 2017-01-25 12:38 | XMS REPORT ---
Author Author GERARDO KISER [facility] eClinicalWorks Address Unknown Phone Unavailable Care Team Providers Care Cross Country/Track And Field Coach Name Role Phone GERARDO KISER CP [...] high cholesterol Z86.39 Active Problem History of [place] (myocardial infarction) I25.2 Active Problem Panic disorder with agoraphobia F40.01 Active Problem History of hypothyroidism Z86.39 Active Problem Epilepsy G40.909 Active Problem History of hypertension Z86.79 Active Problem Tobacco abuse Z72.0 Active Medications Medication Code System Code Instructions Start Date End Date Status Dosage [place] [facility] [address]-29 10-325 MG Orally 2 times a day, may refill if she brings in the remainder of her previous refill March 17, 2016 1 tablet as needed Results No Known Results Summary Purpose eClinicalWorks Submission
--- OUTSIDE RECORDS SUMMARY | 2017-01-25 12:38 | XMS REPORT ---
Author Author GERARDO KISER [facility] Address [address] [place] [address] Care Team Providers Care Hi Lo Driver Name Role Phone GERARDO KISER Unavailable PROBLEMS Type Condition ICD9-CM Code [id number] Code Onset Dates Condition Status SNOMED Code Problem Other chronic pain G89.29 Active 29098308 Problem OAB (overactive bladder) N32.81 Active 572117426 Problem Lumbago M54.5 Active 923028558 Problem Hypoglycemia E16.2 Active 805525283 Problem Type 2 diabetes mellitus 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s E11.9 Active 476104153 Problem COPD (chronic obstructive pulmonary disease) J44.9 Active 70640792 Problem Hepatitis C B19.20 Active 85779182 Problem Bilateral claudication of lower limb I73.9 Active 747413851 Problem Diabetes E11.9 Active 03167875 Problem Bipolar 2 disorder F31.81 Active 22408291 Problem History of hypothyroidism Z86.39 Active 035870731 Problem History of seizures Z87.898 Active 410240261 Problem History of high cholesterol Z86.39 Active 556715503 Problem Panic disorder with agoraphobia F40.01 Active 24075300 Problem Epilepsy G40.909 Active 18626730 Problem History of hypertension Z86.79 Active 488466418 Problem Tobacco abuse Z72.0 Active 64998411 Problem History of [place] (myocardial infarction) I25.2 Active 318876668 Problem Cervicalgia M54.2 Active 74363041 ALLERGIES Unknown Allergies SOCIAL HISTORY No smoking Hx information available PLAN OF CARE VITAL SIGNS MEDICATIONS Medication Instructions Dosage Frequency Start Date End Date Duration Status [place] 10-325 MG Orally 2 times a day, may refill if she brings in the remainder of her previous refill 1 tablet as needed March, Active RESULTS No Results PROCEDURES No Known procedures IMMUNIZATIONS No Known Immunizations
--- OUTSIDE RECORDS SUMMARY | 2017-01-25 12:38 | XMS REPORT ---
Author Author FRANK LUNA Organization [facility] Address [address] [place] [address] Care Team Providers Care Reporting Consultant Name Role Phone FRANK LUNA Unavailable PROBLEMS Type Condition ICD9-CM Code [id number] Code Onset Dates Condition Status SNOMED Code Problem Diabetes E11.9 Active 18140978 Problem Type 2 diabetes mellitus 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s E11.9 Active 288079800 Problem Bilateral claudication of lower limb I73.9 Active 318524618 Problem Uncontrolled type 2 diabetes mellitus 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, without long-term 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 E11.65 Active 244505142 Problem History of hypertension Z86.79 Active 515559578 Problem Mood disorder F39 Active 82736169 Problem History of hypothyroidism Z86.39 Active 423322259 Problem Bipolar 2 disorder F31.81 Active 92173611 Problem Chronic post-traumatic stress disorder (PTSD) F43.12 Active 135769346 Problem Hypoglycemia E16.2 Active 288353662 Problem Type 2 diabetes mellitus with hyperglycemia E11.65 Active 107820324 Problem 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 808184421 Problem Epilepsy G40.909 Active 10871660 Problem Tobacco abuse Z72.0 Active 57210623 Problem History of [place] (myocardial infarction) I25.2 Active 613935392 Problem Panic disorder with agoraphobia F40.01 Active 17390716 Problem Lumbago M54.5 Active 923965587 Problem OAB (overactive bladder) N32.81 Active 423460085 Problem History of seizures Z87.898 Active 113005885 Problem Cervicalgia M54.2 Active 87595614 Problem Hepatitis C B19.20 Active 16943050 Problem History of high cholesterol Z86.39 Active 784735218 Problem Other chronic pain G89.29 Active 74485251 Problem COPD (chronic obstructive pulmonary disease) J44.9 Active 71459275 ALLERGIES Unknown Allergies SOCIAL HISTORY No smoking Hx information available PLAN OF CARE VITAL SIGNS MEDICATIONS Medication Instructions Dosage Frequency Start Date End Date Duration Status Effexor XR 150 MG Orally Once a day 1 capsule 24h Apr, Active Effexor XR 75 MG Orally Once a day 1 capsule 24h Apr, Active RESULTS No Results PROCEDURES No Known procedures IMMUNIZATIONS No Known Immunizations
--- OUTSIDE RECORDS SUMMARY | 2017-01-25 12:39 | XMS REPORT ---
Author Author MANJEET MORROW [facility] eClinicalWorks Address Unknown Phone Unavailable Care Team Providers Care Financial Manager Name Role Phone MANJEET MORROW CP Unavailable Allergies, Adverse Reactions, Alerts Substance [...] stress disorder) F43.10 Active Problem History of [place] (myocardial infarction) I25.2 Active Medications Medication Code System Code Instructions Start Date End Date Status Dosage [facility] [address]-99 10-325 MG Orally EVERY 8 HRS PRN February 21, 2016 March 22, 2016 1 tablet as needed Procedures Procedure Coding System Code Date Office Visit, Est Pt., Level 3 CPT-4 28654 February 21, 2016 Vital Signs Date/Time: February 21, 2016 Blood Pressure Diastolic 82 mmHg Blood Pressure Systolic 115 mmHg Height 62 in Results No Known Results Summary Purpose eClinicalWorks Submission
--- OUTSIDE RECORDS SUMMARY | 2017-01-25 12:39 | XMS REPORT ---
Author FRANK Kuhn eClinicalWorks Address Unknown Phone Unavailable Care Team Providers Care Electrical And Electronic Assembler Name Role Phone FRANK LUNA CP Unavailable Allergies, Adverse Reactions, Alerts Substance [...] 2 disorder F31.81 Active Problem History of [place] (myocardial infarction) I25.2 Active Problem History of hypertension Z86.79 Active Assessment Moderate depressed bipolar I disorder F31.32 Active Assessment PTSD (post-traumatic stress disorder) F43.10 Active Problem History of COPD Z87.09 Active Assessment Epilepsy G40.909 Active Problem History of seizures Z87.898 Active Assessment Panic disorder with agoraphobia F40.01 Active Problem History of anxiety Z86.59 Active Medications Medication Code System Code Instructions Start Date End Date Status Dosage Venlafaxine HCl ER [facility] [address]-23 75 MG Orally 3 times a day Oct 11, 2015 1 capsule with food Lipitor [facility] [address]-09 40 MG Orally Once a day 1 tablet Xanax [facility] [address]-27 2 MG Orally 1/2 tab in the AM and 1 full tab at bedtime Oct 11, 2015 1 tablet Carbamazepine [facility] [address]-06 200 MG Orally 1 tab in the morning and 2 tablets at bedtime 1 tablet Zyprexa [facility] [address]-03 2.5 MG Orally Once a day in the am Oct 11, 2015 1 tablet Montelukast Sodium [facility] [address]-75 10 MG Orally Once a day Oct 11, 2015 1 tablet in the evening Atenolol [facility] [address]-54 25 MG Orally Once a day 1 tablet Symbicort [facility] [address]-21 80-4.5 MCG/ACT Inhalation Twice a day Nov 07, 2015 2 puffs Levothyroxine Sodium [facility] [address]-52 150 MCG Orally Once a day Oct 11, 2015 1 tablet Cyproheptadine HCl [facility] [address]-52 4 MG Orally Once at bedtime for trauma nightmares Nov 08, 2015 1 tablet Zyprexa [facility] [address]-15 10 MG Orally Once a day at bedtime Oct 11, 2015 1 tablet ProAir HFA [facility] [address]-00 108 (90 Base) MCG/ACT Inhalation every 4 hrs Oct 11, 2015 2 puffs as needed Doxepin HCl [facility] [address]-44 150 MG Orally Once at bedtime for sleep Oct 11, 2015 1 capsule Procedures Procedure Coding System Code Date Psychotherapy, patient &/family, with E&M, 30 minutes, established patient CPT -4 20813 Nov 08, 2015 Office Visit, Est Pt., Level 5 CPT-4 32506 Nov 08, 2015 Vital Signs Date/Time: Nov 08, 2015 Cardiac Monitoring Heart Rate 62 bpm Weight 196 lbs Height 62 in BMI 35.84 Index Blood Pressure Diastolic 62 mmHg Blood Pressure Systolic 90 mmHg Results No Known Results Summary Purpose eClinicalWorks Submission
--- OUTSIDE RECORDS SUMMARY | 2017-01-25 12:39 | XMS REPORT ---
Author Author GERARDO KISER [facility] eClinicalWorks Address Unknown Phone Unavailable Care Team Providers Care Enrollment Management Coordinator Name Role Phone GERARDO KISER CP Unavailable [...] high cholesterol Z86.39 Active Problem History of [place] (myocardial infarction) I25.2 Active Problem Panic disorder with agoraphobia F40.01 Active Problem History of hypothyroidism Z86.39 Active Problem Epilepsy G40.909 Active Problem History of hypertension Z86.79 Active Problem Tobacco abuse Z72.0 Active Medications No Known Medications Results No Known Results Summary Purpose eClinicalWorks Submission
--- OUTSIDE RECORDS SUMMARY | 2017-01-25 12:39 | XMS REPORT ---
Author GERARDO Hu [facility] eClinicalWorks Address Unknown Phone Unavailable Care Team Providers Care Windows Consultant Name Role Phone GERARDO KISER CP Unavailable Allergies, Adverse Reactions, Alerts Substance Reaction Event Type Penicillin V Potassium Info Not Available Drug Allergy Metformin HCl diarrhea Drug Allergy Problems Problem Type Condition Code Onset Dates Condition Status Problem Tobacco abuse Z72.0 Active Problem Other chronic pain G89.29 Active Problem Cervicalgia M54.2 Active Problem Bilateral claudication of lower limb I73.9 Active Assessment Other chronic pain G89.29 Active Problem Diabetes E11.9 Active Assessment Uncontrolled type 2 diabetes mellitus 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, without long-term 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 E11.65 Active Problem Type 2 diabetes mellitus 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s E11.9 Active Problem OAB (overactive bladder) N32.81 Active Problem Lumbago M54.5 Active Problem COPD (chronic obstructive pulmonary disease) J44.9 Active Problem Hepatitis C B19.20 Active Problem History of high cholesterol Z86.39 Active Problem PTSD (post-traumatic stress disorder) F43.10 Active Assessment Lumbago with sciatica, right side M54.41 Active Problem History of seizures Z87.898 Active Problem History of hypertension Z86.79 Active Problem History of [place] (myocardial infarction) I25.2 Active Problem Bipolar 2 disorder F31.81 Active Problem Panic disorder with agoraphobia F40.01 Active Problem History of hypothyroidism Z86.39 Active Problem Epilepsy G40.909 Active Medications Medication Code System Code Instructions Start Date End Date Status Dosage GlipiZIDE [facility] [address]-46 10 MG Orally 2 times a day 1 tablet Doxepin HCl [facility] [address]-59 150 MG TAKE ONE CAPSULE BY MOUTH ONCE DAILY AT BEDTIME GlipiZIDE [facility] 79420070231 5 mg Orally Once a day 1 tablet Test strips NDC 0 Test Strips 2 times a day DX- E11.9 April 07, 2016 test blood sugar Xanax [facility] [address]-74 2 MG Orally Three times a day Dec 20, 2015 1 tablet ProAir HFA [facility] [address]-81 108 (90 Base) MCG/ACT Inhalation every 4 hrs Oct 11, 2015 2 puffs as needed Nitroglycerin [facility] [address]-12 0.4 MG Sublingual 3 times a day, prn chest pain January 31, 2016 1 tablet Carbamazepine [facility] [address]-77 200 MG Orally 2 tab in the morning and 2 tablets at bedtime 1 tablet Olanzapine [facility] [address]-54 2.5 MG TAKE ONE TABLET BY MOUTH ONCE DAILY IN THE MORNING Symbicort [facility] [address]-84 160-4.5 MCG/ACT Inhalation Twice a day- rinse mouth and spit after use April 10, 2016 2 puffs every day Zyprexa [facility] [address]-14 10 MG Orally Once a day at bedtime Oct 11, 2015 1 tablet Albuterol Sulfate [facility] [address]-21 1.25 MG/3ML Inhalation 4 times a day April 24, 2016 3 ml as needed Nebulizer [facility] 0 1 4 times a day, with tubing. DX: chronic bronchitis April 24, 2016 as directed Atenolol [facility] [address]-52 25 MG Orally Once a day 1 tablet Accu-Chek Compact Plus ND 0 ... sub Q 3 times a day January 04, 2016 1 test strip Aspirin [facility] [address]-95 81 MG Orally Once a day May 14, 2016 1 tablet Effexor XR [facility] [address]-25 75 MG Orally Once a day April 29, 2016 1 capsule Effexor XR [facility] [address]-54 150 MG Orally Once a day April 29, 2016 1 capsule [place] [facility] [address]-25 10-325 MG Orally 2 times a day, may refill if she brings in the remainder of her previous refill March 17, 2016 1 tablet as needed Lipitor [facility] [address]-86 40 MG Orally Once a day 1 tablet Montelukast Sodium [facility] [address]-82 10 MG Orally Once a day Oct 11, 2015 1 tablet Cyproheptadine HCl [facility] 98202396256 4 MG Orally Once at bedtime for trauma nightmares 1 tablet Blood Glucose Monitor [place] 0 1 glucometer 2 times a day- DX E11.9 April 07, 2016 test blood sugar Levothyroxine Sodium [facility] [address]-28 150 MCG Orally Once a day Oct 11, 2015 1 tablet Procedures Procedure Coding System Code Date Office Visit, [place] Pt., Level 3 CPT-4 45123 May 26, 2016 Vital Signs Date/Time: May 26, 2016 Cardiac Monitoring Heart Rate 77 bpm Weight 190.5 lbs Height 62 in Blood Pressure Diastolic 78 mmHg Blood Pressure Systolic 126 mmHg Results No Known Results Summary Purpose eClinicalWorks Submission
--- OUTSIDE RECORDS SUMMARY | 2017-01-25 12:39 | XMS REPORT ---
Author Author WOODROW MCCORMICK [facility] Address [address] [place] [address] Care Team Providers Care Jacquard Loom Fixer Name Role Phone WOODROW MCCORMICK Unavailable PROBLEMS Type Condition ICD9-CM Code UAY23-OS Code Onset Dates Condition Status SNOMED Code Assessment Bipolar 2 disorder F31.81 Sep, Active 38613698 Problem Hepatitis C B19.20 Active 20928248 Problem History of seizures Z87.898 Active 068028546 Problem COPD (chronic obstructive pulmonary disease) J44.9 Active 23455964 Problem History of high cholesterol Z86.39 Active 077494765 Problem Diabetes E11.9 Active 35022451 Problem Type 2 diabetes mellitus 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s E11.9 Active 778415281 Problem Bilateral claudication of lower limb I73.9 Active 206104160 Problem Uncontrolled type 2 diabetes mellitus 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, without long-term 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 E11.65 Active 137758468 Problem Mood disorder F39 Active 94861306 Problem History of hypertension Z86.79 Active 084894371 Problem History of hypothyroidism Z86.39 Active 284238128 Problem Bipolar 2 disorder F31.81 Active 15996772 Problem Chronic post-traumatic stress disorder (PTSD) F43.12 Active 611737175 Problem Hypoglycemia E16.2 Active 584628710 Problem Type 2 diabetes mellitus with hyperglycemia E11.65 Active 427320322 Problem halfway 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 Active 745719343 Problem Epilepsy G40.909 Active 06975122 Problem Tobacco abuse Z72.0 Active 46660409 Problem History of [place] (myocardial infarction) I25.2 Active 982606185 Problem Panic disorder with agoraphobia F40.01 Active 65234890 Problem Lumbago M54.5 Active 720603136 Problem OAB (overactive bladder) N32.81 Active 651151865 Problem Cervicalgia M54.2 Active 87073094 Problem Other chronic pain G89.29 Active 88956721 ALLERGIES Substance Reaction Event Type Date Status Penicillin V Potassium Unknown Drug Allergy Sep, Active Metformin HCl diarrhea Drug Allergy Sep, Active SOCIAL HISTORY No smoking Hx information available PLAN OF CARE VITAL SIGNS MEDICATIONS Unknown Medications RESULTS No Results PROCEDURES Procedure Date Ordered Related Diagnosis Body Site Psychotherapy, patient &/family, 30 minutes, established patient Sep 30, 2016 IMMUNIZATIONS No Known Immunizations
--- OUTSIDE RECORDS SUMMARY | 2017-01-25 12:39 | XMS REPORT ---
Author Author GERARDO KISER [facility] eClinicalWorks Address Unknown Phone Unavailable Care Team Providers Care Feather Boner Name Role Phone GERARDO KISER CP Unavailable [...] high cholesterol Z86.39 Active Problem History of [place] (myocardial infarction) I25.2 Active Problem Panic disorder with agoraphobia F40.01 Active Problem History of hypothyroidism Z86.39 Active Problem Epilepsy G40.909 Active Problem History of hypertension Z86.79 Active Problem Tobacco abuse Z72.0 Active Medications No Known Medications Results No Known Results Summary Purpose eClinicalWorks Submission
--- OUTSIDE RECORDS SUMMARY | 2017-01-25 12:39 | XMS REPORT ---
Author Author UMAIR GONZALEZ Organization [employer]ClinicalWorks Address Unknown Phone Unavailable Care Team Providers Care Telemarketing Fundraiser Name Role Phone UMAIR GONZALEZ CP Unavailable Allergies No Known Allergies Problems Problem Type Condition Code Onset Dates Condition Status Problem History of COPD Z87.09 Active Problem History of anxiety Z86.59 Active Problem History of seizures Z87.898 Active Problem History of hypertension Z86.79 Active Problem History of hypothyroidism Z86.39 Active Problem History of [place] (myocardial infarction) I25.2 Active Problem History of hepatitis Z86.19 Active Problem History of high cholesterol Z86.39 Active Problem Bipolar 2 disorder F31.81 Active Problem PTSD (post-traumatic stress disorder) F43.10 Active Medications No Known Medications Results No Known Results Summary Purpose eClinicalWorks Submission
--- OUTSIDE RECORDS SUMMARY | 2017-01-25 12:40 | XMS REPORT ---
Author Author UMAIR GONZALEZ Organization [employer]ClinicalWorks Address Unknown Phone Unavailable Care Team Providers Care Cathode Maker Name Role Phone UMAIR GONZALEZ CP Unavailable Allergies No Known Allergies Problems Problem Type Condition Code Onset Dates Condition Status Problem History of COPD Z87.09 Active Problem History of anxiety Z86.59 Active Problem History of seizures Z87.898 Active Problem History of hypertension Z86.79 Active Problem History of hypothyroidism Z86.39 Active Problem History of [place] (myocardial infarction) I25.2 Active Problem History of hepatitis Z86.19 Active Problem History of high cholesterol Z86.39 Active Problem Bipolar 2 disorder F31.81 Active Problem PTSD (post-traumatic stress disorder) F43.10 Active Medications No Known Medications Results No Known Results Summary Purpose eClinicalWorks Submission
--- OUTSIDE RECORDS SUMMARY | 2017-01-25 12:40 | XMS REPORT ---
Author Author GERARDO KISER Organization [employer]ClinicalWorks Address Unknown Phone Unavailable Care Team Providers Care Senior Laboratory Technician Name Role Phone GERARDO KISER CP Unavailable Allergies No Known Allergies Problems Problem Type Condition Code Onset Dates Condition Status Problem Lumbago M54.5 Active Problem Hepatitis C B19.20 Active Problem OAB (overactive bladder) N32.81 Active Problem Chronic post-traumatic stress disorder (PTSD) F43.12 Active Problem History of seizures Z87.898 Active Problem Hypoglycemia E16.2 Active Problem Uncontrolled type 2 diabetes mellitus [...] Tobacco abuse Z72.0 Active Problem History of [place] (myocardial infarction) I25.2 Active Problem Cervicalgia M54.2 Active Problem Panic disorder with agoraphobia F40.01 Active Problem Other chronic pain G89.29 Active Medications No Known Medications Results No Known Results Summary Purpose eClinicalWorks Submission
--- OUTSIDE RECORDS SUMMARY | 2017-01-25 12:40 | XMS REPORT ---
Author Author VALENTIN JACKSON [facility] eClinicalWorks Address Unknown Phone Unavailable Care Team Providers Care Precision Instrument Maker And Repairer Name Role Phone VALENTIN JACKSON CP Unavailable Allergies, Adverse Reactions, Alerts Substance Reaction Event Type Penicillin V Potassium Info Not Available Drug Allergy Metformin HCl diarrhea Drug Allergy Problems Problem Type Condition Code Onset Dates Condition Status Assessment Bipolar 2 disorder F31.81 Active Assessment Bilateral claudication of lower limb I73.9 Active Assessment Anxiety F41.9 Active Assessment Chronic obstructive pulmonary disease, unspecified COPD type J44.9 Active Assessment History of hypothyroidism Z86.39 Active Problem Panic disorder with agoraphobia F40.01 Active Assessment Obesity (BMI 30-39.9) E66.9 Active Problem Epilepsy G40.909 Active Assessment Hyperlipidemia, unspecified hyperlipidemia type E78.5 Active Problem Tobacco abuse Z72.0 Active Problem Other chronic pain G89.29 Active Problem Cervicalgia M54.2 Active Problem Bilateral claudication of lower limb I73.9 Active Problem Diabetes E11.9 Active Assessment Tobacco use Z72.0 Active Assessment Type 2 diabetes mellitus 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s E11.9 Active Problem Type 2 diabetes mellitus 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s E11.9 Active Assessment Essential hypertension I10 Active Problem OAB (overactive bladder) N32.81 Active Problem Lumbago M54.5 Active Problem COPD (chronic obstructive pulmonary disease) J44.9 Active Problem Hepatitis C B19.20 Active Problem History of high cholesterol Z86.39 Active Problem PTSD (post-traumatic stress disorder) F43.10 Active Assessment Chest pain, unspecified type R07.9 Active Problem History of seizures Z87.898 Active Problem History of hypertension Z86.79 Active Problem History of [place] (myocardial infarction) I25.2 Active Problem Bipolar 2 disorder F31.81 Active Problem History of hypothyroidism Z86.39 Active Medications Medication Code System Code Instructions Start Date End Date Status Dosage Cyproheptadine HCl ND 78971830744 4 MG Orally Once at bedtime for trauma nightmares 1 tablet Test strips NDC 0 Test Strips 2 times a day DX- E11.9 April 07, 2016 test blood sugar Effexor XR [facility] [address]-21 75 MG Orally Once a day April 29, 2016 1 capsule Blood Glucose Monitor [place] 0 1 glucometer 2 times a day- DX E11.9 April 07, 2016 test blood sugar Symbicort [facility] [address]-52 160-4.5 MCG/ACT Inhalation Twice a day- rinse mouth and spit after use April 10, 2016 2 puffs every day Amitriptyline HCl [facility] [address]-18 25 MG Orally Once at bedtime for sleep January 17, 2016 1 tablet Albuterol Sulfate [facility] [address]-28 1.25 MG/3ML Inhalation 4 times a day April 24, 2016 3 ml as needed Zyprexa [facility] [address]-43 10 MG Orally Once a day at bedtime Oct 11, 2015 1 tablet Doxepin HCl [facility] [address]-11 150 MG TAKE ONE CAPSULE BY MOUTH ONCE DAILY AT BEDTIME Venlafaxine HCl ER [facility] [address]-56 75 MG Orally 3 times a day Oct 11, 2015 1 capsule with food GlipiZIDE [facility] [address]-93 5 mg Orally Once a day March 20, 2016 1 tablet Nebulizer [facility] 0 1 4 times a day, with tubing. DX: chronic bronchitis April 24, 2016 as directed Doxepin HCl [facility] [address]-74 100 MG Orally Once at bedtime for sleep Oct 11, 2015 1 capsule Accu-Chek Compact Plus [place] 0 ... sub Q 3 times a day January 04, 2016 1 test strip Carbamazepine [facility] [address]-15 200 MG Orally 2 tab in the morning and 2 tablets at bedtime 1 tablet Effexor XR [facility] [address]-13 150 MG Orally Once a day April 29, 2016 1 capsule [place] [facility] [address]-74 7.5-325 MG Orally 2 times a day March 17, 2016 1 tablet as needed Olanzapine [facility] [address]-52 2.5 MG TAKE ONE TABLET BY MOUTH ONCE DAILY IN THE MORNING ProAir HFA [facility] [address]-97 108 (90 Base) MCG/ACT Inhalation every 4 hrs Oct 11, 2015 2 puffs as needed Nitroglycerin [facility] [address]-32 0.4 MG Sublingual q 5 min,up to 3 tablets, as needed May 14, 2016 as directed Levothyroxine Sodium [facility] [address]-94 150 MCG Orally Once a day Oct 11, 2015 1 tablet Lipitor [facility] [address]-34 40 MG Orally Once a day 1 tablet Aspirin [facility] [address]-58 81 MG Orally Once a day May 14, 2016 1 tablet Nitroglycerin [facility] [address]-80 0.4 MG Sublingual 3 times a day, prn chest pain January 31, 2016 1 tablet Atenolol [facility] [address]-06 25 MG Orally Once a day 1 tablet Montelukast Sodium [facility] [address]-10 10 MG Orally Once a day Oct 11, 2015 1 tablet Xanax [facility] [address]-65 2 MG Orally 1 tab in the AM & HS and 1/2 tab at 2pm Dec 20, 2015 1 tablet Procedures Procedure Coding System Code Date Office Visit, Est Pt., Level 5 CPT-4 04257 May 14, 2016 MEASURE BLOOD OXYGEN LEVEL CPT-4 30829 May 14, 2016 Vital Signs Date/Time: May 14, 2016 Cardiac Monitoring Heart Rate 78 bpm Weight 191 lbs Height 62 in BMI 34.93 Index Oximetry 96 % Blood Pressure Diastolic 74 mmHg Blood Pressure Systolic 108 mmHg Results No Known Results Summary Purpose eClinicalWorks Submission
--- OUTSIDE RECORDS SUMMARY | 2017-01-25 12:40 | XMS REPORT ---
Author Author UMAIR GONZALEZ Organization eClinicalWorks Address Unknown Phone Unavailable Care Team Providers Care Concierge Manager Name Role Phone UMAIR GONZALEZ CP Unavailable Allergies No Known Allergies Problems Problem Type Condition Code Onset Dates Condition Status Problem History of COPD Z87.09 Active Problem History of anxiety Z86.59 Active Problem History of seizures Z87.898 Active Problem History of hypertension Z86.79 Active Problem History of hypothyroidism Z86.39 Active Problem History of [place] (myocardial infarction) I25.2 Active Problem History of hepatitis Z86.19 Active Problem History of high cholesterol Z86.39 Active Problem Bipolar 2 disorder F31.81 Active Problem PTSD (post-traumatic stress disorder) F43.10 Active Medications Medication Code System Code Instructions Start Date End Date Status Dosage Symbicort [facility] [place] [address]-53 80-4.5 MCG/ACT Inhalation Twice a day Nov 07, 2015 2 puffs Results No Known Results Summary Purpose eClinicalWorks Submission
--- OUTSIDE RECORDS SUMMARY | 2017-01-25 12:40 | XMS REPORT ---
Author Author FRANK LUNA [facility] eClinicalWorks Address Unknown Phone Unavailable Care Team Providers Care Atg Java Developer Name Role Phone FRANK LUNA CP Unavailable Allergies No Known Allergies Problems Problem Type Condition Code Onset Dates Condition Status Problem History of hypertension Z86.79 Active Problem Panic disorder with agoraphobia F40.01 Active Problem History of [place] (myocardial infarction) I25.2 Active Problem Hepatitis C B19.20 Active Problem OAB (overactive bladder) N32.81 Active Problem COPD (chronic obstructive pulmonary disease) J44.9 Active Problem Cervicalgia M54.2 Active Problem Tobacco abuse Z72.0 Active Problem Lumbago M54.5 Active Problem Other chronic pain G89.29 Active Problem History of high cholesterol Z86.39 Active Problem PTSD (post-traumatic stress disorder) F43.10 Active Problem Bipolar 2 disorder F31.81 Active Problem History of seizures Z87.898 Active Problem History of hypothyroidism Z86.39 Active Medications Medication Code System Code Instructions Start Date End Date Status Dosage Xanax [facility] [address]-16 2 MG Orally 1/2 tab in the AM and 1 full tab at bedtime Oct 11, 2015 1 tablet Results No Known Results Summary Purpose eClinicalWorks Submission
--- OUTSIDE RECORDS SUMMARY | 2017-01-25 12:40 | XMS REPORT | Continuity of Care Document ---
Author Author [facility] Address Unknown Phone Unavailable Allergies Active Description Code Type Severity Reaction Onset Reported/Identified Relationship to Patient Clinical Status Yes Penicillins [id number] Drug Allergy Unknown N/A 06/16/2006 Medications Problems Date Dx Coded Attending Type Code Diagnosis Diagnosed By 05/09/2014 GERARDO KISER APRN 053.79 HERPES ZOSTER WITH OTHER SPECIFIED COMPLICATIONS 05/09/2014 GERARDO KISER APRN 296.90 MOOD DISORDER 05/09/2014 GERARDO KISER APRN 786.50 CHEST PAIN 05/09/2014 GERARDO KISER APRN 053.79 HERPES ZOSTER WITH OTHER SPECIFIED COMPLICATIONS 05/09/2014 GERARDO KISER APRN 296.90 MOOD DISORDER 05/09/2014 GERARDO KISER APRN 786.50 CHEST PAIN 05/09/2014 GERARDO KISER APRN 053.79 HERPES ZOSTER WITH OTHER SPECIFIED COMPLICATIONS 05/09/2014 GERARDO KISER APRN 296.90 MOOD DISORDER 05/09/2014 GERARDO KISER APRN 786.50 CHEST PAIN 05/16/2014 GERARDO KISER APRN 782.1 RASH 05/16/2014 GERARDO KISER APRN 782.1 RASH 06/06/2014 GERARDO KISER APRN 477.9 RHINITIS 06/06/2014 GERARDO KSIER APRN 784.0 HEADACHE 01/23/2016 HOLLIS KRUSE, CHAVA Gill Ot M54.2 01/29/2016 HOLLIS KRUSE, CHAVA Gill Ot M54.2 02/10/2016 CHAVA SHAFER MD Ot M54.2 02/10/2016 HOLLIS KRUSE, CHAVA Gill Ot M54.2 02/10/2016 JACKY CORONEL Ot E11.9 TYPE 2 DIABETES MELLITUS WITHOUT COMPLIC 02/10/2016 JACKY CORONEL Ot F17.210 NICOTINE DEPENDENCE, CIGARETTES, UNCOMPL 02/10/2016 JACKY CORONEL Ot I10 ESSENTIAL (PRIMARY) HYPERTENSION 02/10/2016 JACKY CORONEL Ot S92.354A NONDISP FX OF FIFTH METATARSAL BONE, RIG 02/10/2016 JACKY CORONEL Ot X58.XXXA EXPOSURE TO OTHER SPECIFIED FACTORS, INI 02/10/2016 JACKY CORONEL Ot Y99.8 OTHER EXTERNAL CAUSE STATUS 04/03/2016 HOLLIS KRUSE, CHAVA Gill Ot M54.2 CERVICALGIA 05/14/2016 PRESTON HOLLEY MD Ot R56.9 UNSPECIFIED CONVULSIONS 05/14/2016 PRESTON HOLLEY MD Ot Z79.899 OTHER RETIREMENT (CURRENT) DRUG THERAPY 05/14/2016 PRESTON HOLLEY MD K Ot R56.9 UNSPECIFIED CONVULSIONS 05/15/2016 PRESTON HOLLEY MD Ot R56.9 UNSPECIFIED CONVULSIONS 05/15/2016 PRESTON HOLLEY MD K Ot R56.9 UNSPECIFIED CONVULSIONS 05/15/2016 PRESTON HOLLEY MD Ot Z79.899 OTHER HOLISTIC HEALTH PRACTITIONER (CURRENT) DRUG THERAPY 05/15/2016 RENETTA KRUSE FACC, VALENTIN FACP CCDS Ot E11.9 TYPE 2 DIABETES MELLITUS WITHOUT COMPLIC 05/15/2016 RENETTA KRUSE FACC, ALI FACP CCDS Ot E66.9 OBESITY, UNSPECIFIED 05/15/2016 RENETTA KRUSE FACC, VALENTIN FACP CCDS Ot F31.9 BIPOLAR DISORDER, UNSPECIFIED 05/15/2016 RENETTA KRUSE FACC, ALI FACP CCDS Ot F41.9 ANXIETY DISORDER, UNSPECIFIED 05/15/2016 RENETTA KRUSE FACC, ALI FACP CCDS Ot I10 ESSENTIAL (PRIMARY) HYPERTENSION 05/15/2016 RENETTA KRUSE FACC, ALI FACP CCDS Ot J44.9 CHRONIC OBSTRUCTIVE PULMONARY DISEASE, U 05/15/2016 RENETTA KRUSE FACC, ALI FACP CCDS Ot M79.606 PAIN IN LEG, UNSPECIFIED 05/15/2016 RENETTA KRUSE FACC, ALI FACP CCDS Ot R07.89 OTHER CHEST PAIN 05/15/2016 RENETTA KRUSE FACC, ALI FACP CCDS Ot R60.9 EDEMA, UNSPECIFIED 05/15/2016 RENETTA KRUSE FACC, ALI FACP CCDS Ot Z68.34 BODY MASS INDEX (BMI) 34.0-34.9 , ADULT 05/15/2016 RENETTA KRUSE FACC, VALENTIN FACP CCDS Ot Z72.0 TOBACCO USE 05/15/2016 RENETTA KRUSE FACC, ALI FACP CCDS Ot Z79.899 OTHER HOLISTIC HEALTH PRACTITIONER (CURRENT) DRUG THERAPY 05/18/2016 PRESTON HOLLEY MD Ot R56.9 UNSPECIFIED CONVULSIONS 05/28/2016 PRESTON HOLLEY MD Ot R56.9 UNSPECIFIED CONVULSIONS 05/28/2016 PRESTON HOLLEY MD K Ot R56.9 UNSPECIFIED CONVULSIONS 05/28/2016 PRESTON HOLLEY MD K Ot Z79.899 OTHER HOLISTIC HEALTH PRACTITIONER (CURRENT) DRUG THERAPY 06/10/2016 RENETTA KRUSE FACC, VALENTIN FACP CCDS Ot E11.9 TYPE 2 DIABETES MELLITUS WITHOUT COMPLIC 06/10/2016 RENETTA KRUSE FACC, ALI FACP CCDS Ot E66.9 OBESITY, UNSPECIFIED 06/10/2016 RENETTA KRUSE FACC, ALI FACP CCDS Ot F31.9 BIPOLAR DISORDER, UNSPECIFIED 06/10/2016 RENETTA KRUSE FACC, ALI FACP CCDS Ot F41.9 ANXIETY DISORDER, UNSPECIFIED 06/10/2016 RENETTA KRUSE FACC, ALI FACP CCDS Ot I10 ESSENTIAL (PRIMARY) HYPERTENSION 06/10/2016 RENETTA KRUSE FACC, ALI FACP CCDS Ot J44.9 CHRONIC OBSTRUCTIVE PULMONARY DISEASE, U 06/10/2016 RENETTA KRUSE FACC, ALI FACP CCDS Ot M79.606 PAIN IN LEG, UNSPECIFIED 06/10/2016 RENETTA KRUSE FACC, ALI FACP CCDS Ot R07.89 OTHER CHEST PAIN 06/10/2016 RENETTA KRUSE FACC, ALI FACP CCDS Ot R60.9 EDEMA, UNSPECIFIED 06/10/2016 RENETTA KRUSE FACC, ALI FACP CCDS Ot Z68.34 BODY MASS INDEX (BMI) 34.0-34.9 , ADULT 06/10/2016 RENETTA KRUSE FACC, ALI FACP CCDS Ot Z72.0 TOBACCO USE 06/10/2016 RENETTA KRUSE FACC, ALI FACP CCDS Ot Z79.899 OTHER RETIREMENT (CURRENT) DRUG THERAPY 06/30/2016 PRESTON HOLLEY MD Ot R56.9 UNSPECIFIED CONVULSIONS 06/30/2016 PRESTON HOLLEY MD K Ot R56.9 UNSPECIFIED CONVULSIONS 07/16/2016 PRESTON HOLLEY MD Ot R56.9 UNSPECIFIED CONVULSIONS 08/15/2016 PRESTON HOLLEY MD Ot R56.9 UNSPECIFIED CONVULSIONS 08/15/2016 PRSETON HOLLEY MD Ot R56.9 UNSPECIFIED CONVULSIONS 08/15/2016 PRESTON HOLLEY MD Ot Z79.899 OTHER HOLISTIC HEALTH PRACTITIONER (CURRENT) DRUG THERAPY 08/15/2016 PRESTON HOLLEY MD Ot R56.9 UNSPECIFIED CONVULSIONS 08/15/2016 KAMILLE CHAVEZ DO M Ot E66.9 OBESITY, UNSPECIFIED 08/15/2016 KAMILLE CHAVEZ DO M Ot J44.9 CHRONIC OBSTRUCTIVE PULMONARY DISEASE, U 08/15/2016 KAMILLE CHAVEZ DO M Ot Z72.0 TOBACCO USE 09/05/2016 KAMILLE CHAVEZ DO M Ot E66.9 OBESITY, UNSPECIFIED 09/05/2016 KAMILLE CHAVEZ DO M Ot J44.9 CHRONIC OBSTRUCTIVE PULMONARY DISEASE, U 09/05/2016 KAMILLE CHAVEZ DO M Ot Z72.0 TOBACCO USE 09/23/2016 PRESTON HOLLEY MD Ot R56.9 UNSPECIFIED CONVULSIONS 09/23/2016 PRESTON HOLLEY MD Ot R56.9 UNSPECIFIED CONVULSIONS 09/23/2016 PRESTON HOLLEY MD Ot Z79.899 OTHER HOLISTIC HEALTH PRACTITIONER (CURRENT) DRUG THERAPY 09/23/2016 PRESTON HOLLEY MD Ot R56.9 UNSPECIFIED CONVULSIONS 09/23/2016 KAMILLE CHAVEZ DO M Ot E66.9 OBESITY, UNSPECIFIED 09/23/2016 KAMILLE CHAVEZ DO M Ot J44.9 CHRONIC OBSTRUCTIVE PULMONARY DISEASE, U 09/23/2016 KAMILLE CHAVEZ DO M Ot Z72.0 TOBACCO USE 09/23/2016 KAMILLE CHAVEZ DO M Ot E66.9 OBESITY, UNSPECIFIED 09/23/2016 KAMILLE CHAVEZ DO M Ot J43.9 EMPHYSEMA, UNSPECIFIED 09/23/2016 KAMILLE CHAVEZ DO M Ot Z72.0 TOBACCO USE 11/19/2016 KAMILLE CHAVEZ DO M Ot E66.9 OBESITY, UNSPECIFIED 11/19/2016 KAMILLE CHAVEZ DO Ot J43.9 EMPHYSEMA, UNSPECIFIED 11/19/2016 KAMILLE CHAVEZ DO Ot Z72.0 TOBACCO USE 12/21/2016 KAMILLE CHAVEZ DO Ot R06.83 SNORING 12/22/2016 KAMILLE CHAVEZ DO Ot R06.83 SNORING 12/26/2016 KAMILLE CHAVEZ DO Ot R06.83 SNORING 01/14/2017 LEYDI KRUSE, PRESTON Montelongo Ot R56.9 UNSPECIFIED CONVULSIONS 01/20/2017 GLORIA WALDEN APRN Ot J98.4 OTHER DISORDERS OF LUNG 01/20/2017 GLORIA WALDEN APRN Ot R56.9 UNSPECIFIED CONVULSIONS Procedures Results Test Result Range Complete blood count (CBC) with automated white blood cell (WBC) differential - 01/19/17 11:00 Blood leukocytes automated count (number/volume) 6.1 10*3/ uL 4.3-11.0 Blood erythrocytes automated count (number/volume) 4.23 10*6 /uL 4.35-5.85 Venous blood hemoglobin measurement (mass/volume) 14.1 g/dL 11.5-16.0 Blood hematocrit (volume fraction) 41 % 35-52 Automated erythrocyte mean corpuscular volume 97 [foz_us] 80-99 Automated erythrocyte mean corpuscular hemoglobin (mass per erythrocyte) 33 pg 25-34 Automated erythrocyte mean corpuscular hemoglobin concentration measurement ( mass/volume) 35 g/dL 32-36 Automated erythrocyte distribution width ratio 12.6 % 10.0-14.5 Automated blood platelet count (count/volume) 284 10*3/uL 130-400 Automated blood platelet mean volume measurement 9.1 [foz_us ] 7.4-10.4 Automated blood neutrophils/100 leukocytes 64 % 42-75 Automated blood lymphocytes/100 leukocytes 24 % 12-44 Blood monocytes/100 leukocytes 8 % 0-12 Automated blood eosinophils/100 leukocytes 5 % 0-10 Automated blood basophils/100 leukocytes 1 % 0-10 Blood neutrophils automated count (number/volume) 3.9 10*3 1.8-7.8 Blood lymphocytes automated count (number/volume) 1.4 10*3 1.0-4.0 Blood monocytes automated count (number/volume) 0.5 10*3 0.0-1.0 Automated eosinophil count 0.3 10*3/uL 0.0-0.3 Automated blood basophil count (count/volume) 0.0 10*3/uL 0.0-0.1 Comprehensive metabolic panel - 01/19/17 11:00 Serum or plasma sodium measurement (moles/volume) 140 mmol/ L 135-145 Serum or plasma potassium measurement (moles/volume) 4.5 mmol/L 3.6-5.0 Serum or plasma chloride measurement (moles/volume) 107 mmol /L 98-107 Carbon dioxide 24 mmol/L 21-32 Serum or plasma anion gap determination (moles/volume) 9 mmol/L 5-14 Serum or plasma urea nitrogen measurement (mass/volume) 9 mg /dL 7-18 Serum or plasma creatinine measurement (mass/volume) 0.81 mg /dL 0.60-1.30 Serum or plasma urea nitrogen/creatinine mass ratio 11 NRG Serum or plasma creatinine measurement with calculation of estimated glomerular filtration rate > NRG Serum or plasma glucose measurement (mass/volume) 115 mg/dL 70-105 Serum or plasma calcium measurement (mass/volume) 8.9 mg/dL 8.5-10.1 Serum or plasma total bilirubin measurement (mass/volume) 0.4 mg/dL 0.1-1.0 Serum or plasma alkaline phosphatase measurement (enzymatic activity/volume) 76 U/L 40-136 Serum or plasma aspartate aminotransferase measurement (enzymatic activity/ volume) 32 U/L 5-34 Serum or plasma alanine aminotransferase measurement (enzymatic activity/volume ) 45 U/L 0-55 Serum or plasma protein measurement (mass/volume) 6.6 g/dL 6.4-8.2 Serum or plasma albumin measurement (mass/volume) 3.9 g/dL 3.2-4.5 Complete blood count (CBC) with automated white blood cell (WBC) differential - 01/23/17 13:15 Blood leukocytes automated count (number/volume) 7.4 10*3/ uL 4.3-11.0 Blood erythrocytes automated count (number/volume) 4.59 10*6 /uL 4.35-5.85 Venous blood hemoglobin measurement (mass/volume) 15.1 g/dL 11.5-16.0 Blood hematocrit (volume fraction) 43 % 35-52 Automated erythrocyte mean corpuscular volume 95 [foz_us] 80-99 Automated erythrocyte mean corpuscular hemoglobin (mass per erythrocyte) 33 pg 25-34 Automated erythrocyte mean corpuscular hemoglobin concentration measurement ( mass/volume) 35 g/dL 32-36 Automated erythrocyte distribution width ratio 12.7 % 10.0-14.5 Automated blood platelet count (count/volume) 276 10*3/uL 130-400 Automated blood platelet mean volume measurement 9.6 [foz_us ] 7.4-10.4 Automated blood neutrophils/100 leukocytes 70 % 42-75 Automated blood lymphocytes/100 leukocytes 19 % 12-44 Blood monocytes/100 leukocytes 8 % 0-12 Automated blood eosinophils/100 leukocytes 3 % 0-10 Automated blood basophils/100 leukocytes 0 % 0-10 Blood neutrophils automated count (number/volume) 5.2 10*3 1.8-7.8 Blood lymphocytes automated count (number/volume) 1.4 10*3 1.0-4.0 Blood monocytes automated count (number/volume) 0.6 10*3 0.0-1.0 Automated eosinophil count 0.2 10*3/uL 0.0-0.3 Automated blood basophil count (count/volume) 0.0 10*3/uL 0.0-0.1 Comprehensive metabolic panel - 01/23/17 13:15 Serum or plasma sodium measurement (moles/volume) 138 mmol/ L 135-145 Serum or plasma potassium measurement (moles/volume) 4.3 mmol/L 3.6-5.0 Serum or plasma chloride measurement (moles/volume) 102 mmol /L 98-107 Carbon dioxide 21 mmol/L 21-32 Serum or plasma anion gap determination (moles/volume) 15 mmol/L 5-14 Serum or plasma urea nitrogen measurement (mass/volume) 7 mg /dL 7-18 Serum or plasma creatinine measurement (mass/volume) 0.89 mg /dL 0.60-1.30 Serum or plasma urea nitrogen/creatinine mass ratio 8 NRG Serum or plasma creatinine measurement with calculation of estimated glomerular filtration rate > NRG Serum or plasma glucose measurement (mass/volume) 220 mg/dL 70-105 Serum or plasma calcium measurement (mass/volume) 9.8 mg/dL 8.5-10.1 Serum or plasma total bilirubin measurement (mass/volume) 0.4 mg/dL 0.1-1.0 Serum or plasma alkaline phosphatase measurement (enzymatic activity/volume) 93 U/L 40-136 Serum or plasma aspartate aminotransferase measurement (enzymatic activity/ volume) 30 U/L 5-34 Serum or plasma alanine aminotransferase measurement (enzymatic activity/volume ) 38 U/L 0-55 Serum or plasma protein measurement (mass/volume) 7.3 g/dL 6.4-8.2 Serum or plasma albumin measurement (mass/volume) 4.2 g/dL 3.2-4.5 Influenza virus A and B antigen detection - 01/23/17 13:44 FLU RESULT NEGATIVE FOR INFLUENZA A AND B ANTIGENS BY IA NRG Urine drug screening test - 01/23/17 14:06 Urine phencyclidine detection by screening method NEGATIVE NEGATIVE Urine benzodiazepines detection by screening method POSITIVE NEGATIVE Urine cocaine detection NEGATIVE NEGATIVE Urine amphetamines detection by screening method NEGATIVE NEGATIVE Urine methamphetamine detection by screening method NEGATIVE NEGATIVE Urine cannabinoids detection by screening method NEGATIVE NEGATIVE Urine opiates detection by screening method NEGATIVE NEGATIVE Urine barbiturates detection NEGATIVE NEGATIVE Screening urine tricyclic antidepressants detection NEGATIVE NEGATIVE Urine methadone detection by screening method NEGATIVE NEGATIVE Urine oxycodone detection NEGATIVE NEGATIVE Urine propoxyphene detection NEGATIVE NEGATIVE Complete urinalysis with reflex to culture - 01/23/17 14:06 Urine color determination YELLOW NRG Urine clarity determination SLIGHTLY CLOUDY NRG Urine pH measurement by test strip 7 5- 9 Specific gravity of urine by test strip 1.005 1.016-1.022 Urine protein assay by test strip, semi-quantitative NEGATIVE NEGATIVE Urine glucose detection by automated test strip NEGATIVE NEGATIVE Erythrocytes detection in urine sediment by light microscopy 1+ NEGATIVE Urine ketones detection by automated test strip NEGATIVE NEGATIVE Urine nitrite detection by test strip NEGATIVE NEGATIVE Urine total bilirubin detection by test strip NEGATIVE NEGATIVE Urine urobilinogen measurement by automated test strip (mass/volume) NORMAL NORMAL Urine leukocyte esterase detection by dipstick NEGATIVE NEGATIVE Automated urine sediment erythrocyte count by microscopy (number/high power field) [HPF] NRG Automated urine sediment leukocyte count by microscopy (number/high power field ) NONE NRG Bacteria detection in urine sediment by light microscopy FEW NRG Squamous epithelial cells detection in urine sediment by light microscopy 5-10 NRG Crystals detection in urine sediment by light microscopy NONE NRG Casts detection in urine sediment by light microscopy NONE NRG Mucus detection in urine sediment by light microscopy NEGATIVE NRG Complete urinalysis with reflex to culture NO NRG Encounters ACCT No. Visit Date/Time Discharge Status Pt. Type Provider Facility Loc./Unit Complaint [id number] 06/06/2014 08:47:00 06/06/2014 23: 59:59 CLS Outpatient GERARDO KISER APRN [id number] 05/16/2014 10:11:00 05/16/2014 23: 59:59 CLS Outpatient GERARDO KISER APRN [id number] 05/09/2014 09:17:00 05/09/2014 23: 59:59 CLS Outpatient GERARDO KISER APRN
--- OUTSIDE RECORDS SUMMARY | 2017-01-25 12:41 | XMS REPORT ---
Author FRANK Kuhn [employer] Address Unknown Phone Unavailable Care Team Providers Care Book Editor Name Role Phone FRANK LUNA CP Unavailable [...] 2 disorder F31.81 Active Problem History of [place] (myocardial infarction) I25.2 Active Problem History of hypertension Z86.79 Active Assessment PTSD (post-traumatic stress disorder) F43.10 Active Problem History of COPD Z87.09 Active Problem History of seizures Z87.898 Active Problem History of anxiety Z86.59 Active Medications No Known Medications Procedures Procedure Coding System Code Date VENIPUNCT, ROUTINE* CPT-4 58067 Nov 13, 2015 ASSAY, CARBAMAZEPINE, TOTAL CPT-4 12815 Nov 13, 2015 Results Name Result Date Reference Range Unit Abnormality Flag ROUTINE VENIPUNCTURE Summary Purpose [employer] Submission
--- OUTSIDE RECORDS SUMMARY | 2017-01-25 12:41 | XMS REPORT ---
Author Author GERARDO KISER [facility] [employer] Address Unknown Phone Unavailable Care Team Providers Care Cleat Maker Name Role Phone GERARDO KISER CP Unavailable [...] Tobacco abuse Z72.0 Active Problem History of [place] (myocardial infarction) I25.2 Active Problem Cervicalgia M54.2 Active Medications Medication Code System Code Instructions Start Date End Date Status Dosage [facility] [place] [address]-63 10-325 MG Orally 2 times a day, may refill if she brings in the remainder of her previous refill March 17, 2016 1 tablet as needed Results No Known Results Summary Purpose [employer] Submission
--- OUTSIDE RECORDS SUMMARY | 2017-01-25 12:41 | XMS REPORT ---
Author Author FRANK LUNA [employer] Address Unknown Phone Unavailable Care Team Providers Care Stamping Operator Name Role Phone FRANK LUNA CP Unavailable [...] high cholesterol Z86.39 Active Problem History of [place] (myocardial infarction) I25.2 Active Problem Panic disorder with agoraphobia F40.01 Active Problem History of hypothyroidism Z86.39 Active Problem Epilepsy G40.909 Active Problem History of hypertension Z86.79 Active Problem Tobacco abuse Z72.0 Active Medications Medication Code System Code Instructions Start Date End Date Status Dosage Xanax [facility] [address]-66 2 MG Orally Three times a day Dec 20, 2015 1 tablet Results No Known Results Summary Purpose [employer] Submission
--- OUTSIDE RECORDS SUMMARY | 2017-01-25 12:41 | XMS REPORT ---
Author Author UMAIR GONZALEZ Organization [employer] Address Unknown Phone Unavailable Care Team Providers Care Flush Tester Name Role Phone UMAIR GONZALEZ CP Unavailable Allergies, Adverse Reactions, Alerts Substance Reaction Event Type Penicillamine anaphylaxis Drug Allergy Problems Problem Type Condition Code Onset Dates Condition Status Assessment Impaired fasting glucose R73.01 Active Assessment Tobacco abuse counseling Z71.6 Active Assessment Tobacco abuse Z72.0 Active Problem History of hypertension Z86.79 Active Assessment Cervicalgia M54.2 Active Problem History of [place] (myocardial infarction) I25.2 Active Assessment Other chronic pain G89.29 Active Problem Moderate depressed bipolar I disorder F31.32 Active Problem Panic disorder with agoraphobia F40.01 Active Problem Epilepsy G40.909 Active Problem Lumbago M54.5 Active Problem Other chronic pain G89.29 Active Assessment History of seizures Z87.898 Active Assessment OAB (overactive bladder) N32.81 Active Problem OAB (overactive bladder) N32.81 Active Assessment Lumbago M54.5 Active Problem Tobacco abuse counseling Z71.6 Active Problem Impaired fasting glucose R73.01 Active Problem Cervicalgia M54.2 Active Problem Tobacco abuse Z72.0 Active Problem History of anxiety Z86.59 Active Problem History of high cholesterol Z86.39 Active Problem History of COPD Z87.09 Active Problem History of seizures Z87.898 Active Problem Bipolar 2 disorder F31.81 Active Problem History of hypothyroidism Z86.39 Active Problem History of hepatitis Z86.19 Active Problem PTSD (post-traumatic stress disorder) F43.10 Active Medications Medication Code System Code Instructions Start Date End Date Status Dosage Myrbetriq [facility] [address]-79 50 MG Orally Once a day Nov 09, 2015 Dec 09, 2015 1 tablet Zyprexa [facility] [address]-73 2.5 MG Orally Once a day in the am Oct 11, 2015 1 tablet Metformin HCl [facility] [address]-31 500 MG Orally Twice a day Nov 20, 2015 1 tablet with meals Doxepin HCl [facility] [address]-58 150 MG Orally Once at bedtime for sleep Oct 11, 2015 1 capsule ProAir HFA [facility] [address]-49 108 (90 Base) MCG/ACT Inhalation every 4 hrs Oct 11, 2015 2 puffs as needed Montelukast Sodium [facility] [address]-33 10 MG Orally Once a day Oct 11, 2015 1 tablet in the evening Xanax [facility] [address]-47 2 MG Orally 1/2 tab in the AM and 1 full tab at bedtime Oct 11, 2015 1 tablet Atenolol [facility] [address]-27 25 MG Orally Once a day 1 tablet Zyprexa [facility] [address]-79 10 MG Orally Once a day at bedtime Oct 11, 2015 1 tablet Cyproheptadine HCl [facility] [address]-83 4 MG Orally Once at bedtime for trauma nightmares Nov 08, 2015 1 tablet Carbamazepine [facility] [address]-33 200 MG Orally 2 tab in the morning and 2 tablets at bedtime 1 tablet Symbicort [facility] [address]-10 80-4.5 MCG/ACT Inhalation Twice a day Nov 07, 2015 2 puffs Levothyroxine Sodium [facility] [address]-15 150 MCG Orally Once a day Oct 11, 2015 1 tablet Lipitor [facility] [address]-27 40 MG Orally Once a day 1 tablet Venlafaxine HCl ER [facility] [address]-32 75 MG Orally 3 times a day Oct 11, 2015 1 capsule with food Procedures Procedure Coding System Code Date X-RAY EXAM OF LOWER SPINE CPT-4 95070 Nov 20, 2015 Office Visit, Est Pt., Level 3 CPT-4 59923 Nov 20, 2015 X-RAY EXAM OF NECK SPINE CPT-4 83603 Nov 20, 2015 Vital Signs Date/Time: Nov 20, 2015 Temperature 97.0 F Weight 192.3 lbs Height 62 in BMI 35.17 Index Blood Pressure Diastolic 70 mmHg Blood Pressure Systolic 114 mmHg Cardiac Monitoring Heart Rate 80 bpm Results No Known Results Summary Purpose eClinicalWorks Submission
--- OUTSIDE RECORDS SUMMARY | 2017-01-25 12:41 | XMS REPORT ---
Author Author WOODROW MCCORM[facility] Address [address] [place] [address] Care Team Providers Care Quill Worker Name Role Phone ANNYWOODROW Unavailable PROBLEMS Type Condition ICD9-CM Code [id number] Code Onset Dates Condition Status SNOMED Code Assessment Bipolar 2 disorder F31.81 12 Oct, 2016 Active 37041942 Problem Hepatitis C B19.20 Active 69241850 Problem History of seizures Z87.898 Active 799244387 Problem COPD (chronic obstructive pulmonary disease) J44.9 Active 23077510 Problem History of high cholesterol Z86.39 Active 988639028 Problem Diabetes E11.9 Active 55052015 Problem Type 2 diabetes mellitus 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s E11.9 Active 595339267 Problem Bilateral claudication of lower limb I73.9 Active 524899596 Problem Uncontrolled type 2 diabetes mellitus 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, without long-term 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 E11.65 Active 315655027 Problem Mood disorder F39 Active 97614320 Problem History of hypertension Z86.79 Active 029321707 Problem History of hypothyroidism Z86.39 Active 537659413 Problem Bipolar 2 disorder F31.81 Active 42783473 Problem Chronic post-traumatic stress disorder (PTSD) F43.12 Active 847265081 Problem Hypoglycemia E16.2 Active 714578108 Problem Type 2 diabetes mellitus with hyperglycemia E11.65 Active 353166363 Problem detention 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 Active 872735875 Problem Epilepsy G40.909 Active 73383425 Problem Tobacco abuse Z72.0 Active 92693208 Problem History of [place] (myocardial infarction) I25.2 Active 058174951 Problem Panic disorder with agoraphobia F40.01 Active 88535883 Problem Lumbago M54.5 Active 213116606 Problem OAB (overactive bladder) N32.81 Active 648201443 Problem Cervicalgia M54.2 Active 42075804 Problem Other chronic pain G89.29 Active 47398411 ALLERGIES Unknown Allergies SOCIAL HISTORY No smoking Hx information available PLAN OF CARE VITAL SIGNS MEDICATIONS Unknown Medications RESULTS No Results PROCEDURES Procedure Date Ordered Related Diagnosis Body Site Psychotherapy, patient &/family, 30 minutes, established patient Oct 13, 2016 IMMUNIZATIONS No Known Immunizations
--- OUTSIDE RECORDS SUMMARY | 2017-01-25 12:41 | XMS REPORT ---
Author Author WOODROW MCCORMICK [facility] eClinicalWorks Address Unknown Phone Unavailable Care Team Providers Care Anesthesiology Fellow Name Role Phone WOODROW MCCORMICK CP Unavailable Allergies No Known Allergies Problems Problem Type Condition Code Onset Dates Condition Status Problem History of COPD Z87.09 Active Problem History of anxiety Z86.59 Active Problem History of seizures Z87.898 Active Problem History of hypertension Z86.79 Active Problem History of hypothyroidism Z86.39 Active Problem History of [place] (myocardial infarction) I25.2 Active Problem History of hepatitis Z86.19 Active Problem History of high cholesterol Z86.39 Active Problem Bipolar 2 disorder F31.81 Active Problem PTSD (post-traumatic stress disorder) F43.10 Active Assessment PTSD (post-traumatic stress disorder) F43.10 Active Assessment Major depression, recurrent F33.9 Active Assessment Generalized anxiety disorder F41.1 Active Medications No Known Medications Procedures Procedure Coding System Code Date Psychotherapy, patient &/family, 45 minutes, established patient CPT-4 96350 Oct 25, 2015 Results No Known Results Summary Purpose eClinicalWorks Submission
--- OUTSIDE RECORDS SUMMARY | 2017-01-25 12:41 | XMS REPORT ---
Author Author UMAIR GONZALEZ Organization eClinicalWorks Address Unknown Phone Unavailable Care Team Providers Care Audio/Video Engineer Name Role Phone UMAIR GONZALEZ CP Unavailable Allergies No Known Allergies Problems Problem Type Condition Code Onset Dates Condition Status Problem History of COPD Z87.09 Active Problem History of anxiety Z86.59 Active Problem History of seizures Z87.898 Active Assessment Elevated fasting glucose R73.01 Active Problem History of hypertension Z86.79 Active Problem History of hypothyroidism Z86.39 Active Problem History of [place] (myocardial infarction) I25.2 Active Problem History of hepatitis Z86.19 Active Problem History of high cholesterol Z86.39 Active Problem Bipolar 2 disorder F31.81 Active Problem PTSD (post-traumatic stress disorder) F43.10 Active Medications No Known Medications Results No Known Results Summary Purpose eClinicalWorks Submission
--- OUTSIDE RECORDS SUMMARY | 2017-01-25 12:41 | XMS REPORT ---
Author Author ANUJ GREENWOOD [facility] eClinicalWorks Address Unknown Phone Unavailable Care Team Providers Care Venetian Blind Mechanic Name Role Phone ANUJ GREENWOOD Unavailable Allergies, Adverse Reactions, Alerts Substance Reaction [...] 2 disorder F31.81 Active Problem History of [place] (myocardial infarction) I25.2 Active Problem History of hypertension Z86.79 Active Assessment Dental examination Z01.20 Active Problem History of COPD Z87.09 Active Problem History of seizures Z87.898 Active Assessment Dental caries K02.9 Active Problem History of anxiety Z86.59 Active Medications Medication Code System Code Instructions Start Date End Date Status Dosage Myrbetriq [facility] [address]-29 25 MG Orally Once a day Nov 09, 2015 Dec 09, 2015 1 tablet Levothyroxine Sodium [facility] [address]-21 150 MCG Orally Once a day Oct 11, 2015 1 tablet Xanax [facility] [address]-00 2 MG Orally 1/2 tab in the AM and 1 full tab at bedtime Oct 11, 2015 1 tablet Zyprexa [facility] [address]-90 2.5 MG Orally Once a day in the am Oct 11, 2015 1 tablet ProAir HFA [facility] [address]-85 108 (90 Base) MCG/ACT Inhalation every 4 hrs Oct 11, 2015 2 puffs as needed Atenolol [facility] [address]-84 25 MG Orally Once a day 1 tablet Carbamazepine [facility] [address]-49 200 MG Orally 1 tab in the morning and 2 tablets at bedtime 1 tablet Symbicort [facility] [address]-64 80-4.5 MCG/ACT Inhalation Twice a day Nov 07, 2015 2 puffs Doxepin HCl [facility] [address]-01 150 MG Orally Once at bedtime for sleep Oct 11, 2015 1 capsule Zyprexa [facility] [address]-08 10 MG Orally Once a day at bedtime Oct 11, 2015 1 tablet Venlafaxine HCl ER [facility] [address]-16 75 MG Orally 3 times a day Oct 11, 2015 1 capsule with food Cyproheptadine HCl [facility] [address]-78 4 MG Orally Once at bedtime for trauma nightmares Nov 08, 2015 1 tablet Montelukast Sodium [facility] [address]-20 10 MG Orally Once a day Oct 11, 2015 1 tablet in the evening Lipitor [facility] [address]-18 40 MG Orally Once a day 1 tablet Mittie [facility] [address]-61 5-325 MG Orally every 6 hrs Nov 12, 2015 Nov 16, 2015 1 tablet as needed Procedures Procedure Coding System Code Date INTRAORL-PERIAPICAL 1 FILM 40883 CPT-4 D0220 Nov 12, 2015 EXTRAC ERUPTED TOOTH/EXPOSED ROOT CPT-4 D7140 Nov 12, 2015 LTD ORAL EVALUATION - PROBLEM FOCUS CPT-4 D0140 Nov 12, 2015 Vital Signs Date/Time: Nov 12, 2015 Blood Pressure Diastolic 69 mmHg Blood Pressure Systolic 105 mmHg Height 62 in Results No Known Results Summary Purpose eClinicalWorks Submission
--- OUTSIDE RECORDS SUMMARY | 2017-01-25 12:41 | XMS REPORT ---
Author Author UMAIR GONZALEZ Organization eClinicalWorks Address Unknown Phone Unavailable Care Team Providers Care Care Transport Nurse Name Role Phone UMAIR GONZALEZ CP Unavailable Allergies No Known Allergies Problems Problem Type Condition Code Onset Dates Condition Status Problem Moderate depressed bipolar I disorder F31.32 Active Problem Panic disorder with agoraphobia F40.01 Active Problem Epilepsy G40.909 Active Problem Lumbago M54.5 Active Problem Other chronic pain G89.29 Active Problem OAB (overactive bladder) N32.81 Active Problem Tobacco abuse counseling Z71.6 Active [...] of hepatitis Z86.19 Active Problem History of hypertension Z86.79 Active Problem PTSD (post-traumatic stress disorder) F43.10 Active Problem History of [place] (myocardial infarction) I25.2 Active Medications No Known Medications Results No Known Results Summary Purpose eClinicalWorks Submission
--- OUTSIDE RECORDS SUMMARY | 2017-01-25 12:42 | XMS REPORT ---
Author Author WOODROW MCCORMICK [facility] eClinicalWorks Address Unknown Phone Unavailable Care Team Providers Care Investment Sales Assistant Name Role Phone WOODROW MCCORMICK CP Unavailable Allergies No Known Allergies Problems Problem Type Condition Code Onset Dates Condition Status Assessment PTSD (post-traumatic stress disorder) F43.10 Active Assessment Generalized anxiety disorder F41.1 Active Assessment Depression F32.9 Active Problem Headache 784.0 Active Problem Allergic rhinitis, cause unspecified 477.9 Active Problem History of [place] (myocardial infarction) I25.2 Active Problem Unspecified episodic mood disorder 296.90 Active Problem Rash and other nonspecific skin eruption 782.1 Active Problem Chest pain, unspecified 786.50 Active Problem Other specified herpes zoster complications 053.79 Active Medications No Known Medications Procedures Procedure Coding System Code Date Psych diagnostic evaluation, new patient CPT-4 20153 Oct 11, 2015 Results No Known Results Summary Purpose eClinicalWorks Submission
--- OUTSIDE RECORDS SUMMARY | 2017-01-25 12:42 | XMS REPORT ---
Author Author FRANK LUNA Organization [facility] Address [address] [place] [address] Care Team Providers Care Historic Sites Registrar Name Role Phone FRANK LUNA Unavailable PROBLEMS Type Condition ICD9-CM Code ZRJ02-EX Code Onset Dates Condition Status SNOMED Code Problem Other chronic pain G89.29 Active 22406152 Problem OAB (overactive bladder) N32.81 Active 001701718 Problem Lumbago M54.5 Active 038566978 Problem Hypoglycemia E16.2 Active 325966742 Problem Type 2 diabetes mellitus 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s E11.9 Active 479505227 Problem COPD (chronic obstructive pulmonary disease) J44.9 Active 98131939 Problem Hepatitis C B19.20 Active 60570496 Problem Bilateral claudication of lower limb I73.9 Active 438645763 Problem Diabetes E11.9 Active 06053367 Problem Bipolar 2 disorder F31.81 Active 07602849 Problem History of hypothyroidism Z86.39 Active 652922583 Problem History of seizures Z87.898 Active 085238305 Problem History of high cholesterol Z86.39 Active 987295420 Problem Panic disorder with agoraphobia F40.01 Active 43188616 Problem Epilepsy G40.909 Active 46109858 Problem History of hypertension Z86.79 Active 269441979 Problem Tobacco abuse Z72.0 Active 11572929 Problem History of [place] (myocardial infarction) I25.2 Active 154024126 Problem Cervicalgia M54.2 Active 67012921 ALLERGIES Unknown Allergies SOCIAL HISTORY No smoking Hx information available PLAN OF CARE VITAL SIGNS MEDICATIONS Medication Instructions Dosage Frequency Start Date End Date Duration Status Xanax 2 MG Orally Three times a day 1 tablet 8h 18 Dec, 2015 Active RESULTS No Results PROCEDURES No Known procedures IMMUNIZATIONS No Known Immunizations
--- OUTSIDE RECORDS SUMMARY | 2017-01-25 12:42 | XMS REPORT ---
Author Author FRANK LUNA eClinicalWorks Address Unknown Phone Unavailable Care Team Providers Care Databases Computer Consultant Name Role Phone FRANK LUNA CP Unavailable [...] high cholesterol Z86.39 Active Problem History of [place] (myocardial infarction) I25.2 Active Problem Panic disorder with agoraphobia F40.01 Active Problem History of hypothyroidism Z86.39 Active Problem Epilepsy G40.909 Active Problem History of hypertension Z86.79 Active Problem Tobacco abuse Z72.0 Active Medications Medication Code System Code Instructions Start Date End Date Status Dosage Xanax [facility][NOTE 3] [address]-52 2 MG Orally Three times a day Dec 20, 2015 1 tablet Results No Known Results Summary Purpose eClinicalWorks Submission
--- OUTSIDE RECORDS SUMMARY | 2017-01-25 12:42 | XMS REPORT ---
Author Author STANISLAV KERN eClinicalWorks Address Unknown Phone Unavailable Care Team Providers Care Landscape Nurseryman Name Role Phone STANISLAV KERN CP Unavailable Allergies, Adverse Reactions, Alerts Substance Reaction Event Type Penicillin V Potassium Info Not Available Drug Allergy Metformin HCl diarrhea Drug Allergy Problems Problem Type Condition Code Onset Dates Condition Status Problem Tobacco abuse Z72.0 Active Problem Other chronic pain G89.29 Active Problem Cervicalgia M54.2 Active Problem Bilateral claudication of lower limb I73.9 Active Assessment Dental caries K02.9 Active Problem Diabetes E11.9 Active Problem Type 2 diabetes mellitus 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s E11.9 Active Problem OAB (overactive bladder) N32.81 Active Problem Lumbago M54.5 Active Problem COPD (chronic obstructive pulmonary disease) J44.9 Active Problem Hepatitis C B19.20 Active Problem History of high cholesterol Z86.39 Active Problem PTSD (post-traumatic stress disorder) F43.10 Active Assessment Dental examination Z01.20 Active Problem History of seizures Z87.898 Active Problem History of hypertension Z86.79 Active Problem History of [place] (myocardial infarction) I25.2 Active Problem Bipolar 2 disorder F31.81 Active Problem Panic disorder with agoraphobia F40.01 Active Problem History of hypothyroidism Z86.39 Active Problem Epilepsy G40.909 Active Medications Medication Code System Code Instructions Start Date End Date Status Dosage Olanzapine [facility] [address]-59 2.5 MG TAKE ONE TABLET BY MOUTH ONCE DAILY IN THE MORNING Doxepin HCl [facility] [address]-67 150 MG TAKE ONE CAPSULE BY MOUTH ONCE DAILY AT BEDTIME Cyproheptadine HCl [facility] 12904478252 4 MG Orally Once at bedtime for trauma nightmares 1 tablet Test strips [place] 0 Test Strips 2 times a day DX- E11.9 April 07, 2016 test blood sugar Atenolol [facility] [address]-94 25 MG Orally Once a day 1 tablet Levothyroxine Sodium [facility] [address]-28 150 MCG Orally Once a day Oct 11, 2015 1 tablet GlipiZIDE [facility] 87132432960 5 mg Orally Once a day 1 tablet Nitroglycerin [facility] [address]-01 0.4 MG Sublingual 3 times a day, prn chest pain January 31, 2016 1 tablet Effexor XR [facility] [address]-87 150 MG Orally Once a day April 29, 2016 1 capsule Zyprexa [facility] [address]-87 10 MG Orally Once a day at bedtime Oct 11, 2015 1 tablet Aspirin [facility] [address]-74 81 MG Orally Once a day May 14, 2016 1 tablet Accu-Chek Compact Plus [place] 0 ... sub Q 3 times a day January 04, 2016 1 test strip [place] [facility] [address]-46 10-325 MG Orally 2 times a day, may refill if she brings in the remainder of her previous refill March 17, 2016 1 tablet as needed Xanax [facility] [address]-24 2 MG Orally Three times a day Dec 20, 2015 1 tablet Symbicort [facility] [address]-73 160-4.5 MCG/ACT Inhalation Twice a day- rinse mouth and spit after use April 10, 2016 2 puffs every day Montelukast Sodium [facility] [address]-22 10 MG Orally Once a day Oct 11, 2015 1 tablet Blood Glucose Monitor [place] 0 1 glucometer 2 times a day- DX E11.9 April 07, 2016 test blood sugar ProAir HFA [facility] [address]-93 108 (90 Base) MCG/ACT Inhalation every 4 hrs Oct 11, 2015 2 puffs as needed Nebulizer [place] 0 1 4 times a day, with tubing. DX: chronic bronchitis April 24, 2016 as directed GlipiZIDE [facility] [address]-10 10 MG Orally 2 times a day 1 tablet Carbamazepine [facility] [address]-24 200 MG Orally 2 tab in the morning and 2 tablets at bedtime 1 tablet Effexor XR [facility] [address]-82 75 MG Orally Once a day April 29, 2016 1 capsule Lipitor [facility] [address]-30 40 MG Orally Once a day 1 tablet Albuterol Sulfate [facility] [address]-53 1.25 MG/3ML Inhalation 4 times a day April 24, 2016 3 ml as needed Procedures Procedure Coding System Code Date INTRAORL-PERIAPICAL 1 FILM 76672 CPT-4 D0220 May 28, 2016 EXTRAC ERUPTED TOOTH/EXPOSED ROOT CPT-4 D7140 May 28, 2016 LTD ORAL EVALUATION - PROBLEM FOCUS CPT-4 D0140 May 28, 2016 Vital Signs Date/Time: May 28, 2016 Blood Pressure Diastolic 79 mmHg Blood Pressure Systolic 115 mmHg Height 62 in Results No Known Results Summary Purpose eClinicalWorks Submission
--- OUTSIDE RECORDS SUMMARY | 2017-01-25 12:42 | XMS REPORT ---
Author Author UMAIR GONZALEZ Organization eClinicalWorks Address Unknown Phone Unavailable Care Team Providers Care Automation Software Engineer Name Role Phone UMAIR GONZALEZ CP [...] 2 disorder F31.81 Active Problem History of [place] (myocardial infarction) I25.2 Active Problem History of hypertension Z86.79 Active Assessment Overactive bladder N32.81 Active Assessment History of COPD Z87.09 Active Assessment History of hypertension Z86.79 Active Problem History of COPD Z87.09 Active Assessment History of high cholesterol Z86.39 Active Problem History of seizures Z87.898 Active Assessment History of hypothyroidism Z86.39 Active Problem History of anxiety Z86.59 Active Medications Medication Code System Code Instructions Start Date End Date Status Dosage Zyprexa [facility] [address]-09 2.5 MG Orally Once a day in the am Oct 11, 2015 1 tablet Symbicort [facility] [address]-79 80-4.5 MCG/ACT Inhalation Twice a day Nov 07, 2015 2 puffs Cyproheptadine HCl [facility] [address]-25 4 MG Orally Once at bedtime for trauma nightmares Nov 08, 2015 1 tablet Xanax [facility] [address]-43 2 MG Orally 1/2 tab in the AM and 1 full tab at bedtime Oct 11, 2015 1 tablet Venlafaxine HCl ER [facility] [address]-32 75 MG Orally 3 times a day Oct 11, 2015 1 capsule with food ProAir HFA [facility] [address]-14 108 (90 Base) MCG/ACT Inhalation every 4 hrs Oct 11, 2015 2 puffs as needed Atenolol [facility] [address]-98 25 MG Orally Once a day 1 tablet Carbamazepine [facility] [address]-61 200 MG Orally 1 tab in the morning and 2 tablets at bedtime 1 tablet Montelukast Sodium [facility] [address]-69 10 MG Orally Once a day Oct 11, 2015 1 tablet in the evening Zyprexa [facility] [address]-92 10 MG Orally Once a day at bedtime Oct 11, 2015 1 tablet Myrbetriq [facility] [address]-38 25 MG Orally Once a day Nov 09, 2015 Dec 09, 2015 1 tablet Lipitor [facility] [address]-13 40 MG Orally Once a day 1 tablet Levothyroxine Sodium [facility] [address]-61 150 MCG Orally Once a day Oct 11, 2015 1 tablet Doxepin HCl [facility] [address]-86 150 MG Orally Once at bedtime for sleep Oct 11, 2015 1 capsule Procedures Procedure Coding System Code Date Office Visit, Est Pt., Level 3 CPT-4 45826 Nov 09, 2015 URINALYSIS, AUTO, W/O SCOPE CPT-4 77188 Nov 09, 2015 Vital Signs Date/Time: Nov 09, 2015 Temperature 97.9 F Weight 194.0 lbs Height 62 in BMI 35.48 Index Blood Pressure Diastolic 70 mmHg Blood Pressure Systolic 110 mmHg Cardiac Monitoring Heart Rate 78 bpm Results Name Result Date Reference Range Unit Abnormality Flag UA LONG DIP (IN HOUSE) ----JOSE ENRIQUE Negative 20151109 ----NIT Negative 20151109 ----SG >=1.030 20151109 ----KET negative [id number] ----ELISA negative [id number] ----GLU 1+ [id number] ----Odor no 20151109 ----pH 5.5 20151109 ----BLO Negative [id number] ----URO 0.2 20151109 ----Protein Negative [id number] ----Lot # [id number] ----Exp date [id number] ----Clarity slightly cloudy [id number] ----Color yellow [id number] Summary Purpose eClinicalWorks Submission
--- OUTSIDE RECORDS SUMMARY | 2017-01-25 12:42 | XMS REPORT ---
Author CHAVA Blum [facility] eClinicalWorks Address Unknown Phone Unavailable Care Team Providers Care Appliquer Name Role Phone CHAVA SHAFER CP Unavailable Allergies, Adverse Reactions, Alerts Substance Reaction Event Type Penicillin V Potassium Info Not Available Drug Allergy Problems Problem Type Condition Code Onset Dates Condition Status Problem History of hypertension Z86.79 Active Problem Panic disorder with agoraphobia F40.01 Active Problem History of [place] (myocardial infarction) I25.2 Active Problem Hepatitis C B19.20 Active Problem OAB (overactive bladder) N32.81 Active Problem COPD (chronic obstructive pulmonary disease) J44.9 Active Problem Cervicalgia M54.2 Active Problem Tobacco abuse Z72.0 Active Problem Lumbago M54.5 Active Problem Other chronic pain G89.29 Active Assessment Hepatitis C B19.20 Active Assessment COPD (chronic obstructive pulmonary disease) J44.9 Active Problem History of high cholesterol Z86.39 Active Problem PTSD (post-traumatic stress disorder) F43.10 Active Assessment Cervicalgia M54.2 Active Problem Bipolar 2 disorder F31.81 Active Problem History of seizures Z87.898 Active Problem History of hypothyroidism Z86.39 Active Medications Medication Code System Code Instructions Start Date End Date Status Dosage Myrbetriq [facility] [address]-21 50 MG Orally Once a day Nov 09, 2015 Dec 09, 2015 1 tablet Levothyroxine Sodium [facility] [address]-20 150 MCG Orally Once a day Oct 11, 2015 1 tablet Xanax [facility] [address]-37 2 MG Orally 1/2 tab in the AM and 1 full tab at bedtime Oct 11, 2015 1 tablet Lipitor [facility] [address]-85 40 MG Orally Once a day 1 tablet ProAir HFA [facility] [address]-71 108 (90 Base) MCG/ACT Inhalation every 4 hrs Oct 11, 2015 2 puffs as needed Carbamazepine [facility] [address]-03 200 MG Orally 2 tab in the morning and 2 tablets at bedtime 1 tablet Doxepin HCl [facility] [address]-18 150 MG Orally Once at bedtime for sleep Oct 11, 2015 1 capsule Symbicort [facility] [address]-25 80-4.5 MCG/ACT Inhalation Twice a day Nov 07, 2015 2 puffs Montelukast Sodium [facility] [address]-87 10 MG Orally Once a day Oct 11, 2015 1 tablet in the evening Zyprexa [facility] [address]-70 10 MG Orally Once a day at bedtime Oct 11, 2015 1 tablet Venlafaxine HCl ER [facility] [address]-12 75 MG Orally 3 times a day Oct 11, 2015 1 capsule with food Cyproheptadine HCl [facility] [address]-82 4 MG Orally Once at bedtime for trauma nightmares Nov 08, 2015 1 tablet Atenolol [facility] [address]-84 25 MG Orally Once a day 1 tablet Zyprexa [facility] [address]-12 2.5 MG Orally Once a day in the am Oct 11, 2015 1 tablet Procedures Procedure Coding System Code Date Office Visit, Est Pt., Level 4 CPT-4 70687 Dec 06, 2015 Vital Signs Date/Time: Dec 06, 2015 Temperature 98.2 F Weight 195.6 lbs Height 62 in BMI 35.77 Index Blood Pressure Diastolic 78 mmHg Blood Pressure Systolic 124 mmHg Cardiac Monitoring Heart Rate 74 bpm Results No Known Results Summary Purpose eClinicalWorks Submission
--- OUTSIDE RECORDS SUMMARY | 2017-01-25 12:43 | XMS REPORT ---
Author Author WOODROW MCCORMICK [facility] eClinicalWorks Address Unknown Phone Unavailable Care Team Providers Care Mining Manager Name Role Phone WOODROW MCCORMICK CP Unavailable Allergies, Adverse Reactions, Alerts Substance Reaction Event Type Penicillin V Potassium Info Not Available Drug Allergy Metformin HCl diarrhea Drug Allergy Problems Problem Type Condition Code Onset Dates Condition Status Problem Cervicalgia M54.2 Active Problem Lumbago M54.5 Active Problem Other chronic pain G89.29 Active Problem Type 2 diabetes mellitus 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s E11.9 Active Assessment History of seizures Z87.898 Active Problem Bilateral claudication of lower limb I73.9 Active Assessment Panic disorder with agoraphobia F40.01 Active Assessment Bipolar 2 disorder F31.81 Active Problem Hypoglycemia E16.2 Active Problem Hepatitis C B19.20 Active Problem OAB (overactive bladder) N32.81 Active Problem Diabetes E11.9 Active Problem COPD (chronic obstructive pulmonary disease) J44.9 Active Problem PTSD (post-traumatic stress disorder) F43.10 Active Problem Bipolar 2 disorder F31.81 Active Problem History of seizures Z87.898 Active Problem History of high cholesterol Z86.39 Active Problem History of [place] (myocardial infarction) I25.2 Active Problem Panic disorder with agoraphobia F40.01 Active Problem History of hypothyroidism Z86.39 Active Problem Epilepsy G40.909 Active Problem History of hypertension Z86.79 Active Problem Tobacco abuse Z72.0 Active Medications No Known Medications Procedures Procedure Coding System Code Date Psychotherapy, patient &/family, 30 minutes, established patient CPT-4 33755 Aug 29, 2016 Results No Known Results Summary Purpose eClinicalWorks Submission
--- OUTSIDE RECORDS SUMMARY | 2017-01-25 12:43 | XMS REPORT ---
Author Author WOODROW MCCORMICK [facility] eClinicalWorks Address Unknown Phone Unavailable Care Team Providers Care Supervisor Welding Equipment Repairer Name Role Phone WOODROW MCCORMICK CP Unavailable Allergies, Adverse Reactions, Alerts Substance Reaction Event Type Penicillin V Potassium Info Not Available Drug Allergy Metformin HCl diarrhea Drug Allergy Problems Problem Type Condition Code Onset Dates Condition Status Problem Cervicalgia M54.2 Active Problem Lumbago M54.5 Active Problem Other chronic pain G89.29 Active Problem Type 2 diabetes mellitus 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s E11.9 Active Assessment PTSD (post-traumatic stress disorder) F43.10 Active Problem Bilateral claudication of lower limb I73.9 Active Assessment Panic disorder with agoraphobia F40.01 Active Problem Hypoglycemia E16.2 Active Problem Hepatitis C B19.20 Active Problem OAB (overactive bladder) N32.81 Active Problem Diabetes E11.9 Active Problem COPD (chronic obstructive pulmonary disease) J44.9 Active Problem History of high cholesterol Z86.39 Active Problem Bipolar 2 disorder F31.81 Active Assessment Bipolar 2 disorder F31.81 Active Problem History of seizures Z87.898 Active Problem History of [place] (myocardial infarction) I25.2 Active Problem Panic disorder with agoraphobia F40.01 Active Problem History of hypothyroidism Z86.39 Active Problem Epilepsy G40.909 Active Problem History of hypertension Z86.79 Active Problem Tobacco abuse Z72.0 Active Medications No Known Medications Procedures Procedure Coding System Code Date Psychotherapy, patient &/family, 30 minutes, established patient CPT-4 30397 Sep 12, 2016 Results No Known Results Summary Purpose eClinicalWorks Submission
--- OUTSIDE RECORDS SUMMARY | 2017-01-25 12:43 | XMS REPORT ---
Author Author FRANK LUNA eClinicalWorks Address Unknown Phone Unavailable Care Team Providers Care Banquet Stewardess Name Role Phone FRANK LUNA CP Unavailable Allergies, Adverse Reactions, Alerts Substance Reaction Event Type Penicillin V Potassium Info Not Available Drug Allergy Metformin HCl diarrhea Drug Allergy Problems Problem Type Condition Code Onset Dates Condition Status Problem Panic disorder with agoraphobia F40.01 Active Problem Tobacco abuse Z72.0 Active Problem Epilepsy G40.909 Active Problem COPD (chronic obstructive pulmonary disease) J44.9 Active Assessment Epilepsy G40.909 Active Problem Hepatitis C B19.20 Active Problem Diabetes E11.9 Active Problem Other chronic pain G89.29 Active Problem Cervicalgia M54.2 Active Problem OAB (overactive bladder) N32.81 Active Problem Lumbago M54.5 Active Assessment Bipolar 2 disorder F31.81 Active Problem History of seizures Z87.898 Active Assessment Panic disorder with agoraphobia F40.01 Active Assessment PTSD (post-traumatic stress disorder) F43.10 Active Problem Bipolar 2 disorder F31.81 Active Problem History of hypothyroidism Z86.39 Active Problem History of high cholesterol Z86.39 Active Problem History of hypertension Z86.79 Active Problem PTSD (post-traumatic stress disorder) F43.10 Active Problem History of [place] (myocardial infarction) I25.2 Active Medications Medication Code System Code Instructions Start Date End Date Status Dosage Symbicort [facility] [address]-68 80-4.5 MCG/ACT Inhalation Twice a day Nov 07, 2015 2 puffs Atenolol [facility] [address]-47 25 MG Orally Once a day 1 tablet Levothyroxine Sodium [facility] [address]-50 150 MCG Orally Once a day Oct 11, 2015 1 tablet Cyproheptadine HCl [facility] [address]-08 4 MG Orally Once at bedtime for trauma nightmares Nov 08, 2015 2 tablets ProAir HFA [facility] [address]-09 108 (90 Base) MCG/ACT Inhalation every 4 hrs Oct 11, 2015 2 puffs as needed HydrOXYzine Pamoate [facility] [address]-56 50 mg Orally Take 1-2 capsules at bedtime for sleep. February 19, 2016 1 capsule as needed Accu-Chek Compact Plus NDC 0 ... sub Q 3 times a day January 04, 2016 1 test strip Zyprexa [facility] [address]-66 2.5 MG Orally Once a day in the am Oct 11, 2015 1 tablet Venlafaxine HCl ER [facility] [address]-09 75 MG Orally 3 times a day Oct 11, 2015 1 capsule with food Lipitor [facility] [address]-22 40 MG Orally Once a day 1 tablet Hydrocodone-Acetaminophen [facility] [address]-93 5-325 MG Orally Once a day, hs Dec 25, 2015 1 tablet as needed Carbamazepine [facility] [address]-08 200 MG Orally 2 tab in the morning and 2 tablets at bedtime 1 tablet Zyprexa [facility] [address]-90 10 MG Orally Once a day at bedtime Oct 11, 2015 1 tablet Montelukast Sodium [facility] [address]-81 10 MG Orally Once a day Oct 11, 2015 1 tablet Xanax [facility] [address]-53 2 MG Orally in the AM, 1pm and HS for panic/anxiety Dec 20, 2015 1 tablet Doxepin HCl [facility] [address]-19 100 MG Orally Once at bedtime for sleep Oct 11, 2015 1 capsule Procedures Procedure Coding System Code Date MH Office Visit, Est Pt., Level 4 CPT-4 64891 February 19, 2016 No Charge CPT-4 49871 February 19, 2016 Vital Signs Date/Time: February 19, 2016 Cardiac Monitoring Heart Rate 92 bpm Weight 195.0 lbs Height 62 in BMI 35.66 Index Blood Pressure Diastolic 80 mmHg Blood Pressure Systolic 120 mmHg Results No Known Results Summary Purpose eClinicalWorks Submission
--- OUTSIDE RECORDS SUMMARY | 2017-01-25 12:43 | XMS REPORT ---
Author Author UMAIR GONZALEZ Organization eClinicalWorks Address Unknown Phone Unavailable Care Team Providers Care Executive Creative Director Name Role Phone UMAIR GONZALEZ CP Unavailable Allergies No Known Allergies Problems Problem Type Condition Code Onset Dates Condition Status Assessment History of hypothyroidism Z86.39 Active Assessment General medical exam Z00.00 Active Assessment History of hypertension Z86.79 Active Problem Headache 784.0 Active Problem Allergic rhinitis, cause unspecified 477.9 Active Problem History of [place] (myocardial infarction) I25.2 Active Problem Unspecified episodic mood disorder 296.90 Active Problem Rash and other nonspecific skin eruption 782.1 Active Problem Chest pain, unspecified 786.50 Active Problem Other specified herpes zoster complications 053.79 Active Assessment History of seizures Z87.898 Active Assessment History of high cholesterol Z86.39 Active Assessment History of hepatitis Z86.19 Active Medications No Known Medications Procedures Procedure Coding System Code Date ASSAY THYROID STIM HORMONE CPT-4 85329 Oct 16, 2015 LIPID PANEL CPT-4 84527 Oct 16, 2015 COMPLETE CBC W/AUTO DIFF WBC CPT-4 99724 Oct 16, 2015 ACUTE HEPATITIS PANEL CPT-4 25085 Oct 16, 2015 COMPREHEN METABOLIC PANEL CPT-4 04241 Oct 16, 2015 VENIPUNCT, ROUTINE* CPT-4 88395 Oct 16, 2015 ASSAY, CARBAMAZEPINE, TOTAL CPT-4 45733 Oct 16, 2015 Results Name Result Date Reference Range Unit Abnormality Flag ROUTINE VENIPUNCTURE Summary Purpose eClinicalWorks Submission
--- OUTSIDE RECORDS SUMMARY | 2017-01-25 12:43 | XMS REPORT ---
Author Author GERARDO KISER Organization eClinicalWorks Address Unknown Phone Unavailable Care Team Providers Care Harm Reduction Worker Name Role Phone GERARDO KISER CP Unavailable [...]
--- OUTSIDE RECORDS SUMMARY | 2017-01-25 12:43 | XMS REPORT ---
Author Author CHAVA SHAFER [facility] eClinicalWorks Address Unknown Phone Unavailable Care Team Providers Care Hemodialysis Rn Name Role Phone CHAVA SHAFER Unavailable Allergies No Known Allergies Problems Problem Type Condition Code Onset Dates Condition Status Problem History of hypertension Z86.79 Active Problem Panic disorder with agoraphobia F40.01 Active Problem History of [place] (myocardial infarction) I25.2 Active Problem Hepatitis C B19.20 Active Problem OAB (overactive bladder) N32.81 Active Problem COPD (chronic obstructive pulmonary disease) J44.9 Active Problem Cervicalgia M54.2 Active Problem Tobacco abuse Z72.0 Active Problem Lumbago M54.5 Active Problem Other chronic pain G89.29 Active Problem History of high cholesterol Z86.39 Active Problem PTSD (post-traumatic stress disorder) F43.10 Active Assessment Hepatitis C B19.20 Active Problem Bipolar 2 disorder F31.81 Active Problem History of seizures Z87.898 Active Problem History of hypothyroidism Z86.39 Active Medications No Known Medications Results No Known Results Summary Purpose eClinicalWorks Submission
--- OUTSIDE RECORDS SUMMARY | 2017-01-25 12:43 | XMS REPORT ---
Author Author GERARDO KISER [facility] Address [address] [place] [address] Care Team Providers Care Pre Sales Network Engineer Name Role Phone GERARDO KISER Unavailable PROBLEMS Type Condition ICD9-CM Code [id number] Code Onset Dates Condition Status SNOMED Code Problem Cervicalgia M54.2 Active 11810473 Problem Lumbago M54.5 Active 269908411 Problem Other chronic pain G89.29 Active 79375834 Problem Type 2 diabetes mellitus 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s E11.9 Active 476938312 Problem Bilateral claudication of lower limb I73.9 Active 647279088 Problem Hepatitis C B19.20 Active 73509670 Problem OAB (overactive bladder) N32.81 Active 687409062 Problem Diabetes E11.9 Active 33594802 Problem COPD (chronic obstructive pulmonary disease) J44.9 Active 26953379 Problem History of high cholesterol Z86.39 Active 755646997 Problem Bipolar 2 disorder F31.81 Active 94290690 Assessment Type 2 diabetes mellitus 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s E11.9 Jun, Active 827844772 Problem History of seizures Z87.898 Active 674821924 Problem History of [place] (myocardial infarction) I25.2 Active 764744903 Problem Panic disorder with agoraphobia F40.01 Active 49359406 Problem History of hypothyroidism Z86.39 Active 712336515 Problem Epilepsy G40.909 Active 37185249 Problem History of hypertension Z86.79 Active 253286812 Problem Tobacco abuse Z72.0 Active 16971328 ALLERGIES Substance Reaction Event Type Date Status Penicillin V Potassium Unknown Drug Allergy Jun, Active Metformin HCl diarrhea Drug Allergy Jun, Active SOCIAL HISTORY No smoking Hx information available PLAN OF CARE VITAL SIGNS Height 62 in 2016-06-09 Weight 191 lbs 2016-06-09 Heart Rate 96 bpm 2016-06-09 Respiratory Rate 20 2016-06-09 BMI 34.93 kg/m2 2016-06-09 Blood pressure systolic 120 mmHg 2016-06-09 Blood pressure diastolic 88 mmHg 2016-06-09 MEDICATIONS Medication Instructions Dosage Frequency Start Date End Date Duration Status Xanax 2 MG Orally Three times a day 1 tablet 8h Dec, Active Aspirin 81 MG Orally Once a day 1 tablet 24h May, 30 day(s) Active Olanzapine 2.5 MG TAKE ONE TABLET BY MOUTH ONCE DAILY IN THE MORNING 30 Active Atenolol 25 MG Orally Once a day 1 tablet 24h Active Levothyroxine Sodium 150 MCG Orally Once a day 1 tablet 24h Oct, Active Test strips Test Strips test blood sugar Apr, Active Doxepin HCl 150 MG TAKE ONE CAPSULE BY MOUTH ONCE DAILY AT BEDTIME Active Albuterol Sulfate 1.25 MG/3ML Inhalation 4 times a day 3 ml as needed 6h Apr, Active Carbamazepine 200 MG Orally 2 tab in the morning and 2 tablets at bedtime 1 tablet Active Symbicort 160-4.5 MCG/ACT Inhalation Twice a day- rinse mouth and spit after use 2 puffs every day Apr, Active Cyproheptadine HCl 4 MG Orally Once at bedtime for trauma nightmares 1 tablet 30 Active ProAir HFA 108 (90 Base) MCG/ACT Inhalation every 4 hrs 2 puffs as needed 4h Oct, Active Effexor XR 75 MG Orally Once a day 1 capsule 24h Apr, 30 day(s ) Active Effexor XR 150 MG Orally Once a day 1 capsule 24h Apr, Active Nebulizer 1 as directed Apr, Active Blood Glucose Monitor 1 glucometer test blood sugar Apr, Active [place] 10-325 MG Orally 2 times a day, may refill if she brings in the remainder of her previous refill 1 tablet as needed March, Active GlipiZIDE 5 mg Orally Once a day 1 tablet 24h 30 Active Accu-Chek Compact Plus ... sub Q 3 times a day 1 test strip 8h Dec, Active Lipitor 40 MG Orally Once a day 1 tablet 24h Active Nitroglycerin 0.4 MG Sublingual 3 times a day, prn chest pain 1 tablet Dec, Active Montelukast Sodium 10 MG Orally Once a day 1 tablet 24h Oct, 30 days Active Zyprexa 10 MG Orally Once a day at bedtime 1 tablet Oct, Active RESULTS No Results PROCEDURES Procedure Date Ordered Related Diagnosis Body Site Office Visit, Est Pt., Level 3 Jun 09, 2016 IMMUNIZATIONS No Known Immunizations
--- OUTSIDE RECORDS SUMMARY | 2017-01-25 12:43 | XMS REPORT ---
Author Author GERARDO KISER [facility] Address [address] [place] [address] Care Team Providers Care Final Inspector Movement Assembly Name Role Phone GERARDO KISER Unavailable PROBLEMS Type Condition ICD9-CM Code MEY01-BA Code Onset Dates Condition Status SNOMED Code Problem Cervicalgia M54.2 Active 16388617 Problem Lumbago M54.5 Active 589810784 Problem Other chronic pain G89.29 Active 23438907 Problem Type 2 diabetes mellitus 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s E11.9 Active 991348893 Assessment Coughing R05 Jul, Active 34519585 Problem Bilateral claudication of lower limb I73.9 Active 776862510 Problem Hepatitis C B19.20 Active 78515056 Problem OAB (overactive bladder) N32.81 Active 546813226 Problem Diabetes E11.9 Active 98852612 Problem COPD (chronic obstructive pulmonary disease) J44.9 Active 75229227 Problem History of high cholesterol Z86.39 Active 447931056 Problem Bipolar 2 disorder F31.81 Active 75154599 Assessment Type 2 diabetes mellitus 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s E11.9 Jul, Active 120199318 Problem History of seizures Z87.898 Active 345610645 Problem History of [place] (myocardial infarction) I25.2 Active 841703948 Problem Panic disorder with agoraphobia F40.01 Active 94918114 Problem History of hypothyroidism Z86.39 Active 748743650 Problem Epilepsy G40.909 Active 63879853 Problem History of hypertension Z86.79 Active 909020027 Problem Tobacco abuse Z72.0 Active 52550085 ALLERGIES Substance Reaction Event Type Date Status Penicillin V Potassium Unknown Drug Allergy Jul, Active Metformin HCl diarrhea Drug Allergy Jul, Active SOCIAL HISTORY No smoking Hx information available PLAN OF CARE VITAL SIGNS Height 62 in 2016-07-11 Weight 190.3 lbs 2016-07-11 Heart Rate 80 bpm 2016-07-11 Respiratory Rate 20 2016-07-11 BMI 34.80 kg/m2 2016-07-11 Blood pressure systolic 96 mmHg 2016-07-11 Blood pressure diastolic 64 mmHg 2016-07-11 MEDICATIONS Medication Instructions Dosage Frequency Start Date End Date Duration Status [place] 10-325 MG Orally 2 times a day, may refill if she brings in the remainder of her previous refill 1 tablet as needed March, Active Test strips Test Strips test blood sugar Apr, Active Cetirizine HCl 10 mg Orally Once a day 1 tablet 24h Jul, Nov, 30 day(s) Active Zyprexa 10 MG Orally Once a day at bedtime 1 tablet 30 Active Albuterol Sulfate 1.25 MG/3ML Inhalation 4 times a day 3 ml as needed 6h Apr, Active Effexor XR 150 MG Orally Once a day 1 capsule 24h Apr, Active Blood Glucose Monitor 1 glucometer test blood sugar Apr, Active Nebulizer 1 as directed Apr, Active Cyproheptadine HCl 4 MG Orally Once at bedtime for trauma nightmares 1 tablet 30 Active Montelukast Sodium 10 MG Orally Once a day 1 tablet 24h Oct, 30 days Active Aspirin 81 MG Orally Once a day 1 tablet 24h May, 30 day(s) Active Carbamazepine 200 MG Orally 2 tab in the morning and 2 tablets at bedtime 1 tablet Active Accu-Chek Compact Plus ... sub Q 3 times a day 1 test strip 8h Dec, Active Olanzapine 2.5 MG TAKE ONE TABLET BY MOUTH ONCE DAILY IN THE MORNING 30 Active ProAir HFA 108 (90 Base) MCG/ACT Inhalation every 4 hrs 2 puffs as needed 4h Oct, Active Xanax 2 MG Orally Three times a day 1 tablet 8h Dec, Active Levothyroxine Sodium 150 MCG Orally Once a day 1 tablet 24h Oct, Active Doxepin HCl 150 MG TAKE ONE CAPSULE BY MOUTH ONCE DAILY AT BEDTIME 30 Active Effexor XR 75 MG Orally Once a day 1 capsule 24h Apr, 30 day(s ) Active Symbicort 160-4.5 MCG/ACT Inhalation Twice a day- rinse mouth and spit after use 2 puffs every day Apr, Active Atenolol 25 MG Orally Once a day 1 tablet 24h Active GlipiZIDE 5 mg Orally Once a day 1 tablet 24h 30 Active Nitroglycerin 0.4 MG Sublingual 3 times a day, prn chest pain 1 tablet Dec, Active Lipitor 40 MG Orally Once a day 1 tablet 24h Active RESULTS Name Result Date Reference Range A1C (IN HOUSE) 2016-07-11 A1C IN HOUSE 6.6 4.3 - 5.6 % Previous A1c 6.2 Lot [id number] Exp date MICROALBUMIN, URINE (IN HOUSE) 2016-07-11 MICROALBUMIN normal Lot # [id number] Exp date Clarity slightly cloudy Color yellow ALB 30mg/L CRE 200 mg/dL A:C (IN HOUSE) <30 mg/g Control normal Control abnormal Lot # [id number] Exp date PROCEDURES Procedure Date Ordered Related Diagnosis Body Site GLYCATED HEMOGLOBIN TEST Jul 11, 2016 MICROALBUMIN, SEMIQUANT Jul 11, 2016 Office Visit, Est Pt., Level 3 Jul 11, 2016 IMMUNIZATIONS No Known Immunizations
== END 2017-01-23 15:34 | disposition home or self-care (01) ==
LOC: EDUNIT# 12:34 → ER 12:36
DX: K57.32 Diverticulitis of large intestine without perforation or abscess without bleeding (principal); J44.9 Chronic obstructive pulmonary disease, unspecified; E11.9 Type 2 diabetes mellitus 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s; I10 Essential (primary) hypertension; Z79.84 Long term (current) use of oral hypoglycemic drugs; Z79.899 Other long term (current) drug therapy
CPT/HCPCS: 36415; 71020; 74176; 80053; 80306; 81000; 85025; 87804; 93005; 96361; 96374

== ENCOUNTER 2017-01-26 10:06 | Observation (INO) | payer MEDICAID ==
[~2017-01-26] VITALS: Ht 160 cm; Wt 85.4 kg
[~2017-01-26 10:06] MED LIST changes: +CIPR-225 PO; +METR500T PO; +ONDA8TAB9 PO
[2017-01-26] MEDS ORDERED: NS IV 1000 ML 1,000 ML IV STA (10:34)
[2017-01-26 10:41] LABS: BASOPHILS # (AUTO) 0.1 10^3/uL (0.0-0.1); BASOPHILS % (AUTO) 1 % (0-10); EOSINOPHILS # (AUTO) 0.2 10^3/uL (0.0-0.3); EOSINOPHILS % (AUTO) 3 % (0-10); LYMPHOCYTES # (AUTO) 1.1 X 10^3 (1.0-4.0); LYMPHOCYTES % (AUTO) 18 % (12-44); MEAN CORPUSCULAR HEMOGLOBIN 33 PG (25-34); MEAN CORPUSCULAR HGB CONC 35 G/DL (32-36); MEAN CORPUSCULAR VOLUME 95 FL (80-99); MEAN PLATELET VOLUME 9.9 FL (7.4-10.4); MONOCYTES # (AUTO) 0.4 X 10^3 (0.0-1.0); MONOCYTES % (AUTO) 7 % (0-12); NEUTROPHILS # (AUTO) 4.5 X 10^3 (1.8-7.8); NEUTROPHILS % (AUTO) 71 % (42-75); PLATELET COUNT 262 10^3/uL (130-400); RED BLOOD COUNT 4.49 10^6/uL (4.35-5.85); RED CELL DISTRIBUTION WIDTH 12.7 % (10.0-14.5); WHITE BLOOD COUNT 6.2 10^3/uL (4.3-11.0)
[2017-01-26] MEDS ORDERED: ONDANSETRON 4 MG/2 ML (SDV) Z0FRAN IVP ONE (10:45)
[2017-01-26 10:53] LABS: ALANINE AMINOTRANSFERASE 34 U/L (0-55); ANION GAP 9 MMOL/L (5-14); ASPARTATE AMINO TRANSFERASE 38 U/L (5-34); BILIRUBIN,TOTAL 0.5 MG/DL (0.1-1.0); BLOOD UREA NITROGEN 10 MG/DL (7-18); BUN/CREATININE RATIO 10; CALCIUM 9.1 MG/DL (8.5-10.1); CARBON DIOXIDE 21 MMOL/L (21-32); CHLORIDE 105 MMOL/L (98-107); CREATININE SERUM 0.96 MG/DL (0.60-1.30); GFR ESTIMATED > 60; GLUCOSE 183 MG/DL (70-105); MAGNESIUM 2.3 MG/DL (1.8-2.4); POTASSIUM 4.8 MMOL/L (3.6-5.0); SODIUM 135 MMOL/L (135-145)
--- NOTE | 2017-01-26 10:53 | ED Abdominal Pain ---
General Chief Complaint: Abdominal/GI Problems Stated Complaint: DIARRHEA/VOMITING ELEV BS Nursing Triage Note: AMB TO ED ACCOMPIED BY MOTHER WAS SEEN IN ED ON THURSDAY GIVEN DX OF DIVERTICULITIS STARTED ON MEDS REPORTS NOT ANY BETTER. Sepsis Screen: No Definite Risk Source of Information: Patient Exam Limitations: No Limitations History of Present Illness Time Seen By Provider: 10:41 Initial Comments Here with report of nausea, vomiting and diarrhea as well as fever up to 102F at home over the last 2 days. Seen here a few days ago and diagnosed with diverticulitis. She has been taking the antibiotics as prescribed but now can' t keep them down due to vomiting and diarrhea. She is diabetic and has been unable to control her blood sugar as well. She quit smoking yesterday because she found it increasingly harder to breathe. Does have history of bronchitis and COPD due to smoking. Timing/Duration: 3-4 Days Severity/Quality: Moderate, Aching Location: Generalized Abdomen Radiation: No Radiation Activities at Onset: None Modifying Factors: Worsens With Eating, Worsens With Movement, Worsens With Vomiting Associated Symptoms: No Back Pain, No Chest Pain, Fever/Chills, Nausea/Vomiting , Shortness of Air, No Swelling/Mass in Abdomen, No Weakness Allergies and Home Medications Allergies Coded Allergies: Penicillins (Verified Allergy, Unknown, 06/16/06) Home Medications Albuterol Sulfate 6.7 Gm Hfa.aer.ad, #7 (Reported) Alprazolam 2 Mg Tablet, #75 (Reported) Atorvastatin Calcium 40 Mg Tablet, #30 (Reported) Budesonide/Formoterol Fumarate 10.2 Gm Hfa.aer.ad, #10 (Reported) Carbamazepine 200 Mg Tablet, #120 (Reported) Ciprofloxacin HCl 500 Mg Tablet, 500 MG PO BID, #14 Prescribed by: GALA TALLEY on 01/23/17 1459 Cyproheptadine HCl 4 Mg Tablet, #30 (Reported) Doxepin HCl 150 Mg Capsule, #30 (Reported) Glipizide 5 Mg Tablet, 5 MG PO DAILY, (Reported) Hydrocodone/Acetaminophen 1 Each Tablet, 1 EACH PO Q4H PRN for PAIN, #20 Ref 0 Prescribed by: JACKY ALCARAZ on 02/10/16 1302 Hydroxyzine Pamoate 50 Mg Capsule, 50 MG PO HS, (Reported) Levothyroxine Sodium 150 Mcg Tablet, 150 MCG PO DAILY, (Reported) Metronidazole 500 Mg Tablet, 500 MG PO TID, #21 Prescribed by: GALA TALLEY on 01/23/17 1459 Montelukast Sodium 10 Mg Tablet, #30 (Reported) Olanzapine 10 Mg Tablet, #30 (Reported) Olanzapine 2.5 Mg Tablet, #30 (Reported) Ondansetron 8 Mg Tab.rapdis, 8 MG PO Q6H, #10 Prescribed by: GALA TALLEY on 01/23/17 1459 Venlafaxine HCl 75 Mg Cap.er.24h, #90 (Reported) Review of Systems Constitutional: see HPI, chills, fever EENTM: No Symptoms Reported Respiratory: See HPI, Cough, Shortness of Air Cardiovascular: No Symptoms Reported Gastrointestinal: Abdominal Pain, Diarrhea, Nausea, Vomiting Genitourinary: No Symptoms Reported Musculoskeletal: no symptoms reported Skin: no symptoms reported All Other Systems Reviewed Negative Unless Noted: Yes Past Gwdcixd-Tayjar-Jgqljm Hx Patient Social History Alcohol Use: Denies Use Recreational Drug Use: No Smoking Status: Current Everyday Smoker Type Used: Cigarettes Recent Foreign Travel: No Contact w/Someone Who Travel: No Recent Infectious Disease Expo: No Recent Hopitalizations: No Immunizations Up To Date Date of Pneumonia Vaccine: Jul 11, 2014 Surgeries HX Surgeries: No Respiratory Hx Respiratory Disorders: Yes Respiratory Disorders: COPD Cardiovascular Hx Cardiac Disorders: Yes Cardiac Disorders: Heart Attack, High Cholesterol, Hypertension Neurological Hx Neurological Disorders: No 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 System : No Genitourinary Hx Genitourinary Disorders: No Gastrointestinal Hx Gastrointestinal Disorders: Yes (DIVERTICULITIS ) Musculoskeletal Hx Musculoskeletal Disorders: Yes (chronic pain) Endocrine Hx Endocrine Disorders: Yes Endocrine Disorders: Diabetes, Non-Insulin dep HEENT HX ENT Disorders: No Cancer Hx Cancer: No Psychosocial Hx Psychiatric Problems: No Reviewed Nursing Assessment Reviewed/Agree w Nursing PMH: Yes Family Medical History Significant Family History: No Pertinent Family Hx Physical Exam Vital Signs VS - Last 72 Hours, by Label 01/26/17 10:14 Temp 98.0 Pulse 108 Resp 18 B/P (MAP) 133/88 Capillary Refill : Less Than 3 Seconds General Appearance: WD/WN, no apparent distress Neck: full range of motion, supple Respiratory: lungs clear, normal breath sounds Cardiovascular: regular rate, rhythm, no murmur Gastrointestinal: soft, No guarding, No rebound, tenderness Extremities: non-tender, normal inspection Back: normal inspection, no CVA tenderness, no vertebral tenderness Neurologic/Psychiatric: alert, oriented x 3 Skin: normal color, warm/dry Focused Exam Lactic Acid Level Laboratory Tests Test 01/26/17 10:58 Lactic Acid Level 1.11 MMOL/L (0.50-2.00) Progress/Results/Core Measures Results/Orders Lab Results Laboratory Tests Test 01/26/17 10:25 01/26/17 10:37 01/26/17 10:58 Range/Units White Blood Count 6.2 4.3-11.0 10^3/uL Red Blood Count 4.49 4.35-5.85 10^6/uL Hemoglobin 14.9 11.5-16.0 G/DL Hematocrit 43 35-52 % Mean Corpuscular Volume 95 80-99 FL Mean Corpuscular Hemoglobin 33 25-34 PG Mean Corpuscular Hemoglobin Concent 35 32-36 G/DL Red Cell Distribution Width 12.7 10.0-14.5 % Platelet Count 262 130-400 10^3/uL Mean Platelet Volume 9.9 7.4-10.4 FL Neutrophils (%) (Auto) 71 42-75 % Lymphocytes (%) (Auto) 18 12-44 % Monocytes (%) (Auto) 7 0-12 % Eosinophils (%) (Auto) 3 0-10 % Basophils (%) (Auto) 1 0-10 % Neutrophils # (Auto) 4.5 1.8-7.8 X 10^3 Lymphocytes # (Auto) 1.1 1.0-4.0 X 10^3 Monocytes # (Auto) 0.4 0.0-1.0 X 10^3 Eosinophils # (Auto) 0.2 0.0-0.3 10^3/uL Basophils # (Auto) 0.1 0.0-0.1 10^3/uL Sodium Level 135 135-145 MMOL/L Potassium Level 4.8 3.6-5.0 MMOL/L Chloride Level 105 98-107 MMOL/L Carbon Dioxide Level 21 21-32 MMOL/L Anion Gap 9 5-14 MMOL/L Blood Urea Nitrogen 10 7-18 MG/DL Creatinine 0.96 0.60-1.30 MG/DL Estimat Glomerular Filtration Rate > 60 BUN/Creatinine Ratio 10 Glucose Level 183 H 70-105 MG/DL Calcium Level 9.1 8.5-10.1 MG/DL Magnesium Level 2.3 1.8-2.4 MG/DL Total Bilirubin 0.5 0.1-1.0 MG/DL Aspartate Amino Transf (AST/SGOT) 38 H 5-34 U/L Alanine Aminotransferase (ALT/SGPT) 34 0-55 U/L Alkaline Phosphatase 81 40-136 U/L Total Protein 7.0 6.4-8.2 G/DL Albumin 4.0 3.2-4.5 G/DL Lactic Acid Level 1.11 0.50-2.00 MMOL/L My Orders Orders - ELINA TANG MD Cbc With Automated Diff (01/26/17 10:34) Comprehensive Metabolic Panel (01/26/17 10:34) Magnesium (01/26/17 10:34) Ua Culture If Indicated (01/26/17 10:34) Ondansetron Injection (Zofran Injectio (01/26/17 10:45) Ns Iv 1000 Ml (Sodium Chloride 0.9%) (01/26/17 10:34) Lactic Acid Analyzer (01/26/17 10:50) Blood Culture (01/26/17 10:50) Fentanyl Injection (Sublimaze Injection (01/26/17 12:20) Levofloxacin 750 Mg/150 Ml Iv (Levaquin (01/26/17 12:28) Medications Given in ED Current Medications Medications Dose Ordered Sig/Peterson Route Start Time Stop Time Status Last Admin Dose Admin Ondansetron HCl 4 mg ONCE ONCE IVP 01/26/17 10:45 01/26/17 10:46 DC 01/26/17 10:46 4 MG Vital Signs/I&O Vital Sign - Last 12Hours 01/26/17 10:14 Temp 98.0 Pulse 108 Resp 18 B/P (MAP) 133/88 Blood Pressure Mean: 103 Progress Note : Progress Note Seen and evaluated. IV, labs, UA, blood cultures and lactic acid ordered. Normal saline 1 L bolus. Monitor patient. I did review previous history and noted diverticulitis found on CT on previous visit. We will compare labs today. Monitor patient. 1220: Patient with repeat diarrhea here and complaining of persistent pain. Fentanyl 50 g IV given. Labs are reviewed. I did discuss the case with Dr. Elise at 1226. She accepts patient for admission, observation status. Levaquin 750 mg IV initiated. We will continue Levaquin and Flagyl due to diverticulitis concerns. Patient and family agree with plan. Admit, observation status. Departure Communication Time/Spoke to Admitting Phy: 12:25 Impression Impression: Primary Impression: Diverticulitis of intestine Qualified Codes: K57.32 - Diverticulitis of large intestine without perforation or abscess without bleeding Additional Impressions: Nausea and vomiting Qualified Codes: R11.14 - Bilious vomiting Dehydration Disposition: ADMITTED INPATIENT Condition: Stable Decision to Admit Reason: Admit from ER (General) Decision to Admit/Date: Jan 26, 2017 Time/Decision to Admit Time: 12:20 Departure-Patient Inst. Referrals: [facility] (PCP/Family) Primary Care Physician ELINA TANG MD Jan 26, 2017 10:52
[2017-01-26] MEDS ORDERED: fentaNYL INJECTION 100 MCG/2 ML AMP IVP STA (12:20)
[2017-01-26] MEDS ORDERED: LEVOFLOXACIN 750 MG/150 ML IV 150 ML IV STA (12:28)
[2017-01-26] MEDS ORDERED: LACO200T2 PO (12:53)
[2017-01-26] MEDS ORDERED: INSU100I29 SQ (12:53)
[2017-01-26] MEDS ORDERED: ESLI400T PO (12:53)
[2017-01-26] MEDS ORDERED: INSU100I14 SQ (12:53)
[2017-01-26] MEDS ORDERED: RANI150T11 PO (12:53)
[2017-01-26] MEDS ORDERED: ONDANSETRON 4 MG/2 ML (SDV) Z0FRAN IV PRN (13:15)
[2017-01-26] MEDS ORDERED: CATHETER FLUSH 10 ML SYR IV PRN (13:15)
[2017-01-26] MEDS ORDERED: ATOR40TA70 PO (13:36)
[2017-01-26] MEDS ORDERED: ATEN25TA PO (13:36)
[2017-01-26] MEDS ORDERED: VENL150C98 PO (13:36)
[2017-01-26] MEDS ORDERED: ONDA8TAB13 PO (13:36)
[2017-01-26] MEDS ORDERED: METR500T21 PO (13:36)
[2017-01-26] MEDS ORDERED: VENL75CA93 PO (13:36)
[2017-01-26] MEDS ORDERED: ALPR2TAB6 PO (13:36)
[2017-01-26] MEDS ORDERED: ASPI-999 PO (13:36)
[2017-01-26] MEDS ORDERED: HYDR-3820 PO (13:36)
[2017-01-26] MEDS ORDERED: RT-ALBUINH IH (13:36)
[2017-01-26] MEDS ORDERED: CIPR500T4 PO (13:36)
[2017-01-26] MEDS ORDERED: ALBU1.25 IH (13:36)
[2017-01-26] MEDS: NS IV 1000 ML 1,000 ML IV SCH (14:16)
[2017-01-26] MEDS: metroNIDAZOLE 500 MG/100 ML IVPB (PRE-MIX) IV SCH ×2 (14:17→21:38)
[2017-01-26] MEDS: inSUlin (REGULAR) HUMAN 1 UNIT/0.01 ML (CHARGE PER UNIT) SC SCH ×2 (14:30→19:30)
[2017-01-26] MEDS ORDERED: RT-ALBUTEROL SULF 2.5 MG/3 ML PRE-MIX VIAL IH SCH (15:00)
[2017-01-26] MEDS ORDERED: RT-ALBUTEROL SULF 2.5 MG/3 ML PRE-MIX VIAL IH PRN (15:00)
[2017-01-26] MEDS ORDERED: FLU TRIvalent (5 YOA+) 2016-17 (AFLURIA) 0.5 ML IM ONE (15:15)
[2017-01-26 16:40] VITALS: BP 119/56
[2017-01-26] MEDS: fentaNYL INJECTION 100 MCG/2 ML AMP IV PRN ×2 (17:27→22:45)
[2017-01-26] MEDS: RT-ADVAIR HFA 115/21 MCG PER PUFF IH SCH (18:45)
[2017-01-26] MEDS: RT-ALBUTEROL SULF 2.5 MG/3 ML PRE-MIX VIAL IH SCH (18:45)
[2017-01-26 20:07] VITALS: BP 114/68
[2017-01-26] MEDS: PROMETHAZINE INJ 25 MG/ML (PHENERGAN) AMP IVP PRN (20:56)
[2017-01-26] MEDS ORDERED: RT-SYMBICORT 160/4.5 MCG INHALER PER PUFF IH SCH (21:00)
[2017-01-26 23:10] VITALS: BP 116/61
[2017-01-27] MEDS: NS IV 1000 ML 1,000 ML IV SCH ×2 (02:30→09:15)
[2017-01-27] MEDS: PROMETHAZINE INJ 25 MG/ML (PHENERGAN) AMP IVP PRN ×2 (02:35→08:05)
[2017-01-27] MEDS: fentaNYL INJECTION 100 MCG/2 ML AMP IV PRN ×2 (04:03→08:05)
[2017-01-27 04:30] VITALS: BP 116/72
[2017-01-27] MEDS: inSUlin (REGULAR) HUMAN 1 UNIT/0.01 ML (CHARGE PER UNIT) SC SCH ×2 (05:50→09:53)
[2017-01-27] MEDS: metroNIDAZOLE 500 MG/100 ML IVPB (PRE-MIX) IV SCH (05:50)
[2017-01-27] MEDS: RT-ADVAIR HFA 115/21 MCG PER PUFF IH SCH (06:35)
[2017-01-27] MEDS: RT-ALBUTEROL SULF 2.5 MG/3 ML PRE-MIX VIAL IH SCH ×2 (06:35→11:15)
[2017-01-27 07:04] LABS: BASOPHILS % (AUTO) 1 % (0-10); EOSINOPHILS # (AUTO) 0.1 10^3/uL (0.0-0.3); EOSINOPHILS % (AUTO) 3 % (0-10); LYMPHOCYTES # (AUTO) 0.8 X 10^3 (1.0-4.0); LYMPHOCYTES % (AUTO) 18 % (12-44); MEAN CORPUSCULAR HGB CONC 34 G/DL (32-36); MEAN CORPUSCULAR VOLUME 97 FL (80-99); MEAN PLATELET VOLUME 9.2 FL (7.4-10.4); MONOCYTES # (AUTO) 0.5 X 10^3 (0.0-1.0); MONOCYTES % (AUTO) 10 % (0-12); NEUTROPHILS # (AUTO) 2.9 X 10^3 (1.8-7.8); NEUTROPHILS % (AUTO) 68 % (42-75); RED CELL DISTRIBUTION WIDTH 12.5 % (10.0-14.5)
[2017-01-27 07:06] LABS: MEAN CORPUSCULAR HEMOGLOBIN 33 PG (25-34); PLATELET COUNT 214 10^3/uL (130-400); RED BLOOD COUNT 3.64 10^6/uL (4.35-5.85); WHITE BLOOD COUNT 4.8 10^3/uL (4.3-11.0)
[2017-01-27 07:28] LABS: ALANINE AMINOTRANSFERASE 28 U/L (0-55); ALBUMIN 3.6 G/DL (3.2-4.5); ANION GAP 9 MMOL/L (5-14); ASPARTATE AMINO TRANSFERASE 27 U/L (5-34); BILIRUBIN,TOTAL 0.5 MG/DL (0.1-1.0); BLOOD UREA NITROGEN 6 MG/DL (7-18); BUN/CREATININE RATIO 8; CALCIUM 8.2 MG/DL (8.5-10.1); CARBON DIOXIDE 25 MMOL/L (21-32); CHLORIDE 106 MMOL/L (98-107); GFR ESTIMATED > 60; GLUCOSE 129 MG/DL (70-105); POTASSIUM 3.4 MMOL/L (3.6-5.0); SODIUM 140 MMOL/L (135-145); TOTAL PROTEIN 5.8 G/DL (6.4-8.2)
[2017-01-27 08:00] VITALS: BP 121/62
[2017-01-27] MEDS ORDERED: LEVOFLOXACIN 750 MG/D5W 150 ML (PRE-MIX) IV SCH (09:00)
--- NOTE | 2017-01-27 11:17 | Short Stay Summary ---
HPI History of Present Illness: 46 yo F that presented to ER last Thursday with diarrhea and abdominal pain. She was started on treatment for diverticulitis and sent home. Patient was not able to tolerate antibiotics because of severe nausea and vomiting over the weekend and presented back to ER Thursday. States that she has never had diverticulitis before. Denies previous colonoscopy. Denies any family h/o colon Ca. No fevers or chills since being admitted. She is wanting to try and advance diet this AM because she is hungry. Has not had any N/V since waking up this AM. + diarrhea several times last night and this AM. Denies any blood in stool. Source: patient Exam Limitations: no limitations Date seen by provider: Jan 27, 2017 Attending Physician Emiliana Elise MD [place] [facility] [place] Date of Admission Jan 26, 2017 at 12:34 Home Medications Home Medications Reviewed patient Home Medication Reconciliation Form Allergies Coded Allergies: Penicillins (Verified Allergy, Unknown, 01/26/17) TDO-Bvocdd-Rmnapg Hx Patient Social History Alcohol Use: Denies Use Recreational Drug Use: No Smoking Status: Current Everyday Smoker Type Used: Cigarettes Recent Foreign Travel: No Contact w/other who traveled: No Recent Hopitalizations: No Recent Infectious Disease Expo: No Physical Abuse Screen: No Sexual Abuse: No Immunizations Up To Date Date of Pneumonia Vaccine: Jul 11, 2014 Date of Influenza Vaccine: Nov 02, 2016 Past Medical History Insulin Dependent DM HTN Family Medical History Significant Family History: No Pertinent Family Hx Family History: FH: cancer 19 MOTHER Myocardial infarction 19 FATHER (48 years old) Review of Systems ([facility]) Constitutional: no symptoms reported, No chills, No fever EENTM: no symptoms reported Respiratory: no symptoms reported, No cough, No dyspnea on exertion, No short of breath Cardiovascular: no symptoms reported, No chest pain, No edema, No palpitations Gastrointestinal: LLQ (pain and cramping), diarrhea, loss of appetite, No melena, nausea, vomiting Genitourinary: no symptoms reported, No dysuria, No frequency, No hematuria : No Musculoskeletal: no symptoms reported, No back pain, No joint pain Skin: no symptoms reported, No lesions, No rash Psychiatric/Neurological: No Symptoms Reported, Denies Anxiety, Denies Depressed Reviewed Test Results Reviewed Test Results Lab Laboratory Tests Test 01/26/17 10:25 01/26/17 10:37 01/26/17 10:58 01/26/17 14:33 Range/Units White Blood Count 6.2 4.3-11.0 10^3/uL Red Blood Count 4.49 4.35-5.85 10^6/uL Hemoglobin 14.9 11.5-16.0 G/DL Hematocrit 43 35-52 % Mean Corpuscular Volume 95 80-99 FL Mean Corpuscular Hemoglobin 33 25-34 PG Mean Corpuscular Hemoglobin Concent 35 32-36 G/DL Red Cell Distribution Width 12.7 10.0-14.5 % Platelet Count 262 130-400 10^3/uL Mean Platelet Volume 9.9 7.4-10.4 FL Neutrophils (%) (Auto) 71 42-75 % Lymphocytes (%) (Auto) 18 12-44 % Monocytes (%) (Auto) 7 0-12 % Eosinophils (%) (Auto) 3 0-10 % Basophils (%) (Auto) 1 0-10 % Neutrophils # (Auto) 4.5 1.8-7.8 X 10^3 Lymphocytes # (Auto) 1.1 1.0-4.0 X 10^3 Monocytes # (Auto) 0.4 0.0-1.0 X 10^3 Eosinophils # (Auto) 0.2 0.0-0.3 10^3/uL Basophils # (Auto) 0.1 0.0-0.1 10^3/uL Sodium Level 135 135-145 MMOL/L Potassium Level 4.8 3.6-5.0 MMOL/L Chloride Level 105 98-107 MMOL/L Carbon Dioxide Level 21 21-32 MMOL/L Anion Gap 9 5-14 MMOL/L Blood Urea Nitrogen 10 7-18 MG/DL Creatinine 0.96 0.60-1.30 MG/DL Estimat Glomerular Filtration Rate > 60 BUN/Creatinine Ratio 10 Glucose Level 183 H 70-105 MG/DL Calcium Level 9.1 8.5-10.1 MG/DL Magnesium Level 2.3 1.8-2.4 MG/DL Total Bilirubin 0.5 0.1-1.0 MG/DL Aspartate Amino Transf (AST/SGOT) 38 H 5-34 U/L Alanine Aminotransferase (ALT/SGPT) 34 0-55 U/L Alkaline Phosphatase 81 40-136 U/L Total Protein 7.0 6.4-8.2 G/DL Albumin 4.0 3.2-4.5 G/DL Lactic Acid Level 1.11 0.50-2.00 MMOL/L Glucometer 104 70-110 MG/DL Test 01/26/17 20:11 01/27/17 05:05 01/27/17 05:45 01/27/17 09:41 Range/Units Glucometer 111 H 137 H 259 H 70-110 MG/DL White Blood Count 4.8 4.3-11.0 10^3/uL Red Blood Count 3.64 L 4.35-5.85 10^6/uL Hemoglobin 12.0 11.5-16.0 G/DL Hematocrit 35 35-52 % Mean Corpuscular Volume 97 80-99 FL Mean Corpuscular Hemoglobin 33 25-34 PG Mean Corpuscular Hemoglobin Concent 34 32-36 G/DL Red Cell Distribution Width 12.5 10.0-14.5 % Platelet Count 214 130-400 10^3/uL Mean Platelet Volume 9.2 7.4-10.4 FL Neutrophils (%) (Auto) 68 42-75 % Lymphocytes (%) (Auto) 18 12-44 % Monocytes (%) (Auto) 10 0-12 % Eosinophils (%) (Auto) 3 0-10 % Basophils (%) (Auto) 1 0-10 % Neutrophils # (Auto) 2.9 1.8-7.8 X 10^3 Lymphocytes # (Auto) 0.8 L 1.0-4.0 X 10^3 Monocytes # (Auto) 0.5 0.0-1.0 X 10^3 Eosinophils # (Auto) 0.1 0.0-0.3 10^3/uL Basophils # (Auto) 0.0 0.0-0.1 10^3/uL Sodium Level 140 135-145 MMOL/L Potassium Level 3.4 L 3.6-5.0 MMOL/L Chloride Level 106 98-107 MMOL/L Carbon Dioxide Level 25 21-32 MMOL/L Anion Gap 9 5-14 MMOL/L Blood Urea Nitrogen 6 L 7-18 MG/DL Creatinine 0.80 0.60-1.30 MG/DL Estimat Glomerular Filtration Rate > 60 BUN/Creatinine Ratio 8 Glucose Level 129 H 70-105 MG/DL Calcium Level 8.2 L 8.5-10.1 MG/DL Total Bilirubin 0.5 0.1-1.0 MG/DL Aspartate Amino Transf (AST/SGOT) 27 5-34 U/L Alanine Aminotransferase (ALT/SGPT) 28 0-55 U/L Alkaline Phosphatase 65 40-136 U/L Total Protein 5.8 L 6.4-8.2 G/DL Albumin 3.6 3.2-4.5 G/DL Radiology Date of Exam: 01/23/17 CT ABDOMEN/PELVIS WO PROCEDURE: CT abdomen and pelvis without contrast. TECHNIQUE: Multiple contiguous axial images were obtained through the abdomen and pelvis without the use of intravenous contrast. INDICATION: Diarrhea and constipation with dizziness. Febrile. FINDINGS: The lung bases are clear. Liver appears normal. Gallbladder and bile ducts are normal. The pancreas and spleen are normal. The adrenal glands are normal. The kidneys appear normal without obstruction or mass. There are no calculi. Ureters are normal. Aorta appears normal. Stomach and small bowel are not distended. The colon shows diverticulosis of the descending colon with mesenteric edema adjacent to diverticula in the mid descending colon consistent with acute diverticulitis. This is causing considerable edema. There is moderate stool proximal to this with no stool in the distal colon. Uterus is absent. There is no free air or free fluid. No abscesses. IMPRESSION: 1. Findings are consistent with acute diverticulitis of the mid descending colon. This is short segment in nature. No evidence of bowel perforation or abscess. Physical Exam-([facility]) Physical Exam Vital Signs VS - Last 72 Hours, by Label 01/26/17 01/26/17 01/26/17 01/26/17 10:14 12:36 14:50 14:55 Temp 98.0 Pulse 108 90 Resp 18 18 B/P (MAP) 133/88 Pulse Ox 94 94 94 O2 Delivery Room Air 01/26/17 01/26/17 01/26/17 01/26/17 16:40 18:47 20:07 20:30 Temp 98.1 97.6 Pulse 103 101 Resp 18 18 B/P (MAP) 119/56 114/68 Pulse Ox 96 92 95 O2 Delivery Room Air Room Air Room Air 01/26/17 01/27/17 01/27/17 01/27/17 23:10 04:30 06:35 08:00 Temp 97.7 97.7 98.7 Pulse 105 98 114 Resp 18 20 20 B/P (MAP) 116/61 116/72 121/62 Pulse Ox 93 94 99 92 O2 Delivery Room Air Room Air Room Air 01/27/17 09:00 O2 Delivery Room Air Capillary Refill : Less Than 3 Seconds General Appearance: WD/WN, no apparent distress (sitting up on the side of the bed) HEENT: PERRL/EOMI, normal ENT inspection Neck: non-tender, full range of motion, supple, normal inspection Respiratory: chest non-tender, lungs clear, normal breath sounds, no respiratory distress, no accessory muscle use Cardiovascular: normal peripheral pulses, regular rate, rhythm, no edema, no gallop, no JVD, no murmur Gastrointestinal: normal bowel sounds, soft, no organomegaly, No guarding, No rebound, tenderness (LLQ tender to palpation), No hepatomegaly, No spleenomegaly Back: normal inspection, no CVA tenderness, no vertebral tenderness Extremities: normal range of motion, non-tender, normal inspection, no pedal edema, no calf tenderness, normal capillary refill 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, no motor/sensory deficits, alert, normal mood/affect, oriented x 3 Skin: normal color, warm/dry Lymphatic: no adenopathy Short Stay Diagnosis Discharge Diagnosis-Short Stay Admission Diagnosis Diverticulitis Nausea and Vomiting Insulin Dependent DM Final Discharge Diagnosis See Above Conclusion Plan 46 yo F that was admitted for Diverticulitis due to unable to keep antibiotics down Plan Diverticulitis - Continue Flagyl and Levaquin PO as outpatient - Clay soft diet - Will need colonoscopy outpatient after symptoms resolve Nausea and Vomiting: Improved with medications and hydration - Focus on PO hydration - Scripts for Zofran and Phenergan, encouraged patient to alternate and take prior to taking antibiotics Insulin Dependent DM - Make sure to check your blood sugars at home, call clinic if they are running < 70 or > 180 - No changes made inpatient to insulin Clinical Quality Measures DVT/VTE Risk/Contraindication: Risk Factor Score Per Nursin RFS Level Per Nursing on Admit: 4+=Very High Copy Copies To 1: Roddy DAWN HOLLY R MD Jan 27, 2017 11:17
[2017-01-27 12:00] VITALS: BP 129/67
[2017-01-27] MEDS ORDERED: LEVO750T9 PO (12:39)
[2017-01-27] MEDS ORDERED: METR500T21 PO (12:39)
[2017-01-27] MEDS ORDERED: PROM25TA14 PO (12:39)
--- NOTE | 2017-01-27 12:43 | Discharge Instructions ---
Discharge [facility] Discharge Medications New, Converted or Re-Newed RX: Call to Patients Pharmacy New Medications: Levofloxacin (Levaquin) 750 Mg Tablet 750 MG PO DAILY for 7 Days, TAB Promethazine HCl (Promethazine Tablet) 25 Mg Tablet 25 MG PO Q6H PRN for NAUSEA/VOMITING for 7 Days, #20 TAB Continued Medications: Albuterol Sulfate (Albuterol Sulfate) 1.25 Mg/3 Ml Vial.neb 1.25 MG IH QID PRN for SHORTNESS OF BREATH Albuterol Sulfate (Ventolin Hfa) 1 Puff Puff 2 PUFF IH QID PRN for SHORTNESS OF BREATH Alprazolam (Alprazolam) 2 Mg Tablet 1 MG PO DAILY@1400, TAB TAKES 1/2 OF A (2 MG) TABLET Aspirin (Aspirin) 81 Mg Tab.chew 81 MG PO DAILY Atenolol (Atenolol) 25 Mg Tablet 25 MG PO DAILY Atorvastatin Calcium (Atorvastatin Calcium) 40 Mg Tablet 40 MG PO HS, TAB Budesonide/Formoterol Fumarate (Symbicort 80-4.5 Mcg Inhaler) 10.2 Gm Hfa.aer.ad 2 PUFF IH BID Doxepin HCl (Doxepin HCl) 150 Mg Capsule 150 MG PO HS Eslicarbazepine Acetate (Aptiom) 400 Mg Tablet PO UD HAS NOT STARTED YET / 1 TAB PO EVERY EVENING X 10 DAYS, THEN 2 TABS THEREAFTER. Hydrocodone/Acetaminophen (Hydrocodon-Acetaminophn 10-325) 1 Each Tablet 1 TAB PO TID, TAB Insulin Aspart (Novolog Flexpen) 300 Units/3 Ml Solution 40 UNITS SQ TIDWM Insulin Detemir (Levemir Flextouch) 100 Unit/1 Ml Insuln.pen 56 UNITS SQ BID Lacosamide (Vimpat) 200 Mg Tablet 200 MG PO BID Levothyroxine Sodium (Levothyroxine Sodium) 150 Mcg Tablet 150 MCG PO DAILY, TAB Metronidazole (Metronidazole) 500 Mg Tablet 500 MG PO TID for 7 Days, #21 (This prescription has been renewed) FILLED 01/23/17 #21 FOR A 7 DAY THERAPY Montelukast Sodium (Montelukast Sodium) 10 Mg Tablet 10 MG PO DAILY Olanzapine (Olanzapine) 10 Mg Tablet 10 MG PO HS Ondansetron (Ondansetron Odt) 8 Mg Tab.rapdis 8 MG PO Q6H PRN for NAUSEA/VOMITING Ranitidine HCl (Ranitidine HCl) 150 Mg Tablet 150 MG PO BID Venlafaxine HCl (Venlafaxine HCl ER) 75 Mg Cap.er.24h 75 MG PO DAILY TAKES IN CONJUCTION WITH VENLAFAXINE 150MG FOR A TOTAL DOSE OF 225MG Venlafaxine HCl (Venlafaxine HCl ER) 150 Mg Cap.er.24h 150 MG PO DAILY TAKES IN CONJUCTION WITH VENLAFAXINE 75MG FOR A TOTAL DOSE OF 225MG Discontinued Medications: Alprazolam (Alprazolam) 2 Mg Tablet 2 MG PO BID Ciprofloxacin HCl (Ciprofloxacin HCl) 500 Mg Tablet 500 MG PO BID FILLED 01/23/17 #14 FOR A 7 DAY THERAPY Patient Instructions Goal/Follow Up Appt: You have a follow up appt at [facility] on February 06 @ 10 AM with Roddy Mcelroy Patient Instructions: Make sure to stay well hydrated and eat soft foods Make sure to take your antibiotics until they are completed Return to The Hospital For: Severe return of abdominal pain Blood in stool Unable to tolerate antibiotics Activity & Diet Discharge Diet: Eat Small Frequent Meals, ADA Diet Activity as Tolerated: Yes Orders-Post D/C & Referrals Pneu Vac Indicated: Yes Copy Copies To 1: STIVEN Higgins MD Jan 27, 2017 12:43
--- OUTSIDE RECORDS SUMMARY | 2017-02-10 17:51 | XMS REPORT | Continuity of Care Document ---
Author Author [facility] Address Unknown Phone Unavailable Allergies Active Description Code Type Severity Reaction Onset Reported/Identified Relationship to Patient Clinical Status Yes Penicillins [id number] Drug Allergy Unknown N/A 01/26/2017 Medications Problems Date Dx Coded Attending Type [...] GERARDO KISER APRN 477.9 RHINITIS 06/06/2014 GERARDO KISER APRN 784.0 HEADACHE 01/23/2016 HOLLIS KRUSE, CHAVA [...] 05/14/2016 PRESTON HOLLEY MD Ot Z79.899 OTHER SENIOR LIVING (CURRENT) DRUG THERAPY 05/14/2016 PRESTON HOLLEY MD K Ot R56.9 UNSPECIFIED CONVULSIONS 05/15/2016 PRESTON HOLLEY MD Ot R56.9 UNSPECIFIED CONVULSIONS 05/15/2016 PRESTON HOLLEY MD K Ot R56.9 UNSPECIFIED CONVULSIONS 05/15/2016 PRESTON HOLLEY MD Ot Z79.899 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 ASSEMBLY LEADER (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) DRUG THERAPY 05/15/2016 RENETTA KRUSE FACC, [...] FACC, ALI FACP CCDS Ot Z79.899 OTHER ASSEMBLY LEADER (CURRENT) DRUG THERAPY 05/18/2016 PRESTON HOLLEY MD Ot R56.9 UNSPECIFIED CONVULSIONS 05/28/2016 PRESTON HOLLEY MD Ot R56.9 UNSPECIFIED CONVULSIONS 05/28/2016 PRESTON HOLLEY MD K Ot R56.9 UNSPECIFIED CONVULSIONS 05/28/2016 PRESTON HOLLEY MD K Ot Z79.899 OTHER ASSEMBLY LEADER (CURRENT) DRUG THERAPY 06/10/2016 RENETTA KRUSE FACC, [...] FACC, ALI FACP CCDS Ot Z79.899 OTHER SENIOR LIVING (CURRENT) DRUG THERAPY 06/30/2016 PRESTON HOLLEY MD Ot R56.9 UNSPECIFIED CONVULSIONS 06/30/2016 PRESTON HOLLEY MD K Ot R56.9 UNSPECIFIED CONVULSIONS 07/16/2016 PRESTON HOLLEY MD Ot R56.9 UNSPECIFIED CONVULSIONS 08/15/2016 PRESTON HOLLEY MD Ot R56.9 UNSPECIFIED CONVULSIONS 08/15/2016 PRESTON HOLLEY MD Ot R56.9 UNSPECIFIED CONVULSIONS 08/15/2016 PRESTON HOLLEY MD Ot Z79.899 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 ASSEMBLY LEADER (CURRENT) DRUG THERAPY 08/15/2016 PRESTON HOLLEY MD [...] 09/23/2016 PRESTON HOLLEY MD Ot Z79.899 OTHER ASSEMBLY LEADER (CURRENT) DRUG THERAPY 09/23/2016 PRESTON HOLLEY MD [...] Ot R56.9 UNSPECIFIED CONVULSIONS 01/20/2017 GLORIA WALDEN MAJOR GENERAL Ot J98.4 OTHER DISORDERS OF LUNG 01/20/2017 GLORIA WALDEN MAJOR GENERAL Ot R56.9 UNSPECIFIED CONVULSIONS 01/23/2017 PRESTON HOLLEY MD Ot R56.9 UNSPECIFIED CONVULSIONS 01/23/2017 GALA TALLEY APRN Ot E11.9 TYPE 2 DIABETES MELLITUS WITHOUT COMPLIC 01/23/2017 GALA TALLEY APRN Ot I10 ESSENTIAL (PRIMARY) HYPERTENSION 01/23/2017 GALA TALLEY APRN Ot J44.9 CHRONIC OBSTRUCTIVE PULMONARY DISEASE, U 01/23/2017 GALA TALLEY APRN Ot K57.32 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 01/23/2017 GALA TALLEY APRN Ot R19.7 DIARRHEA, UNSPECIFIED 01/23/2017 GALA TALLEY APRN Ot Z79.84 SENIOR LIVING (CURRENT) USE OF ORAL HYPOGLYC 01/23/2017 GALA TALLEY APRN Ot Z79.899 OTHER SENIOR LIVING (CURRENT) DRUG THERAPY 01/25/2017 GALA TALLEY APRN Ot E11.9 TYPE 2 DIABETES MELLITUS WITHOUT COMPLIC 01/25/2017 GALA TALLEY MAJOR GENERAL Ot I10 ESSENTIAL (PRIMARY) HYPERTENSION 01/25/2017 GALA TALLEY APRN Ot J44.9 CHRONIC OBSTRUCTIVE PULMONARY DISEASE, U 01/25/2017 GALA TALLEY APRN Ot K57.32 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 01/25/2017 GALA TALLEY APRN Ot R19.7 DIARRHEA, UNSPECIFIED 01/25/2017 GALA TALLEY APRN Ot Z79.84 ASSEMBLY LEADER (CURRENT) USE OF ORAL HYPOGLYC 01/25/2017 GALA TALLEY APRN Ot Z79.899 OTHER SENIOR LIVING (CURRENT) DRUG THERAPY 01/27/2017 STIVEN RAYMOND MD Ot E11.9 TYPE 2 DIABETES MELLITUS WITHOUT COMPLIC 01/27/2017 STIVEN RAYMOND MD R Ot E86.0 DEHYDRATION 01/27/2017 STIVEN RAYMOND MD Ot F17.210 NICOTINE DEPENDENCE, CIGARETTES, UNCOMPL 01/27/2017 STIVEN RAYMOND MD Ot I10 ESSENTIAL (PRIMARY) HYPERTENSION 01/27/2017 STIVEN RAYMOND MD Ot J44.9 CHRONIC OBSTRUCTIVE PULMONARY DISEASE, U 01/27/2017 STIVEN RAYMOND MD Ot K57.32 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 01/27/2017 STIVEN RAYMOND MD Ot Z79.84 ASSEMBLY LEADER (CURRENT) USE OF ORAL HYPOGLYC 01/27/2017 STIVEN RAYMOND MD Ot E11.9 TYPE 2 DIABETES MELLITUS WITHOUT COMPLIC 01/27/2017 STIVEN RAYMOND MD Ot E86.0 DEHYDRATION 01/27/2017 STIVEN RAYMOND MD Ot F17.210 NICOTINE DEPENDENCE, CIGARETTES, UNCOMPL 01/27/2017 STIVEN RAYMOND MD Ot I10 ESSENTIAL (PRIMARY) HYPERTENSION 01/27/2017 STIVEN RAYMOND MD Ot J44.9 CHRONIC OBSTRUCTIVE PULMONARY DISEASE, U 01/27/2017 STIVEN RAYMOND MD Ot K57.32 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 01/27/2017 STIVEN RAYMOND MD Ot Z79.84 ASSEMBLY LEADER (CURRENT) USE OF ORAL HYPOGLYC 01/29/2017 GALA TALLEY APRN Ot E11.9 TYPE 2 DIABETES MELLITUS WITHOUT COMPLIC 01/29/2017 GALA TALLEY MAJOR GENERAL Ot I10 ESSENTIAL (PRIMARY) HYPERTENSION 01/29/2017 GALA TALLEY APRN Ot J44.9 CHRONIC OBSTRUCTIVE PULMONARY DISEASE, U 01/29/2017 GALA TALLEY APRN Ot K57.32 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 01/29/2017 GALA TALLEY APRN Ot R19.7 DIARRHEA, UNSPECIFIED 01/29/2017 GALA TALLEY APRN Ot Z79.84 SENIOR LIVING (CURRENT) USE OF ORAL HYPOGLYC 01/29/2017 GALA TALLEY APRN Ot Z79.899 OTHER SENIOR LIVING (CURRENT) DRUG THERAPY Procedures Results Test Result Range Complete blood [...] INFLUENZA A AND B ANTIGENS BY IA [facility] Urine drug screening test - 01/23/17 14:06 [...] urinalysis with reflex to culture NO NRG Complete blood count (CBC) with automated white blood cell (WBC) differential - 01/26/17 10:25 Blood leukocytes automated count (number/volume) 6.2 10*3/ uL 4.3-11.0 Blood erythrocytes automated count (number/volume) 4.49 10*6 /uL 4.35-5.85 Venous blood hemoglobin measurement (mass/volume) 14.9 g/dL 11.5-16.0 Blood hematocrit (volume fraction) 43 % 35-52 Automated erythrocyte mean corpuscular volume 95 [foz_us] 80-99 Automated erythrocyte mean corpuscular hemoglobin (mass per erythrocyte) 33 pg 25-34 Automated erythrocyte mean corpuscular hemoglobin concentration measurement ( mass/volume) 35 g/dL 32-36 Automated erythrocyte distribution width ratio 12.7 % 10.0-14.5 Automated blood platelet count (count/volume) 262 10*3/uL 130-400 Automated blood platelet mean volume measurement 9.9 [foz_us ] 7.4-10.4 Automated blood neutrophils/100 leukocytes 71 % 42-75 Automated blood lymphocytes/100 leukocytes 18 % 12-44 Blood monocytes/100 leukocytes 7 % 0-12 Automated blood eosinophils/100 leukocytes 3 % 0-10 Automated blood basophils/100 leukocytes 1 % 0-10 Blood neutrophils automated count (number/volume) 4.5 10*3 1.8-7.8 Blood lymphocytes automated count (number/volume) 1.1 10*3 1.0-4.0 Blood monocytes automated count (number/volume) 0.4 10*3 0.0-1.0 Automated eosinophil count 0.2 10*3/uL 0.0-0.3 Automated blood basophil count (count/volume) 0.1 10*3/uL 0.0-0.1 Comprehensive metabolic panel - 01/26/17 10:25 Serum or plasma sodium measurement (moles/volume) 135 mmol/ L 135-145 Serum or plasma potassium measurement (moles/volume) 4.8 mmol/L 3.6-5.0 Serum or plasma chloride measurement (moles/volume) 105 mmol /L 98-107 Carbon dioxide 21 mmol/L 21-32 Serum or plasma anion gap determination (moles/volume) 9 mmol/L 5-14 Serum or plasma urea nitrogen measurement (mass/volume) 10 mg/dL 7-18 Serum or plasma creatinine measurement (mass/volume) 0.96 mg /dL 0.60-1.30 Serum or plasma urea nitrogen/creatinine mass ratio 10 NRG Serum or plasma creatinine measurement with calculation of estimated glomerular filtration rate > NRG Serum or plasma glucose measurement (mass/volume) 183 mg/dL 70-105 Serum or plasma calcium measurement (mass/volume) 9.1 mg/dL 8.5-10.1 Serum or plasma total bilirubin measurement (mass/volume) 0.5 mg/dL 0.1-1.0 Serum or plasma alkaline phosphatase measurement (enzymatic activity/volume) 81 U/L 40-136 Serum or plasma aspartate aminotransferase measurement (enzymatic activity/ volume) 38 U/L 5-34 Serum or plasma alanine aminotransferase measurement (enzymatic activity/volume ) 34 U/L 0-55 Serum or plasma protein measurement (mass/volume) 7.0 g/dL 6.4-8.2 Serum or plasma albumin measurement (mass/volume) 4.0 g/dL 3.2-4.5 Magnesium - 01/26/17 10:25 Magnesium 2.3 mg/dL 1.8-2.4 Blood lactic acid measurement (moles/volume) - 01/26/17 10:58 Blood lactic acid measurement (moles/volume) 1.11 mmol/L 0.50-2.00 Bacterial blood culture - 01/26/17 10:58 Bacterial blood culture NG NRG Bacterial blood culture - 01/26/17 12:04 Bacterial blood culture NG NRG Capillary blood glucose measurement by glucometer (mass/volume) - 01/26/17 14: 33 Capillary blood glucose measurement by glucometer (mass/volume) 104 mg/dL 70-110 Capillary blood glucose measurement by glucometer (mass/volume) - 01/26/17 20: 11 Capillary blood glucose measurement by glucometer (mass/volume) 111 mg/dL 70-110 Capillary blood glucose measurement by glucometer (mass/volume) - 01/27/17 05: 05 Capillary blood glucose measurement by glucometer (mass/volume) 137 mg/dL 70-110 Complete blood count (CBC) with automated white blood cell (WBC) differential - 01/27/17 05:45 Blood leukocytes automated count (number/volume) 4.8 10*3/ uL 4.3-11.0 Blood erythrocytes automated count (number/volume) 3.64 10*6 /uL 4.35-5.85 Venous blood hemoglobin measurement (mass/volume) 12.0 g/dL 11.5-16.0 Blood hematocrit (volume fraction) 35 % 35-52 Automated erythrocyte mean corpuscular volume 97 [foz_us] 80-99 Automated erythrocyte mean corpuscular hemoglobin (mass per erythrocyte) 33 pg 25-34 Automated erythrocyte mean corpuscular hemoglobin concentration measurement ( mass/volume) 34 g/dL 32-36 Automated erythrocyte distribution width ratio 12.5 % 10.0-14.5 Automated blood platelet count (count/volume) 214 10*3/uL 130-400 Automated blood platelet mean volume measurement 9.2 [foz_us ] 7.4-10.4 Automated blood neutrophils/100 leukocytes 68 % 42-75 Automated blood lymphocytes/100 leukocytes 18 % 12-44 Blood monocytes/100 leukocytes 10 % 0-12 Automated blood eosinophils/100 leukocytes 3 % 0-10 Automated blood basophils/100 leukocytes 1 % 0-10 Blood neutrophils automated count (number/volume) 2.9 10*3 1.8-7.8 Blood lymphocytes automated count (number/volume) 0.8 10*3 1.0-4.0 Blood monocytes automated count (number/volume) 0.5 10*3 0.0-1.0 Automated eosinophil count 0.1 10*3/uL 0.0-0.3 Automated blood basophil count (count/volume) 0.0 10*3/uL 0.0-0.1 Comprehensive metabolic panel - 01/27/17 05:45 Serum or plasma sodium measurement (moles/volume) 140 mmol/ L 135-145 Serum or plasma potassium measurement (moles/volume) 3.4 mmol/L 3.6-5.0 Serum or plasma chloride measurement (moles/volume) 106 mmol /L 98-107 Carbon dioxide 25 mmol/L 21-32 Serum or plasma anion gap determination (moles/volume) 9 mmol/L 5-14 Serum or plasma urea nitrogen measurement (mass/volume) 6 mg /dL 7-18 Serum or plasma creatinine measurement (mass/volume) 0.80 mg /dL 0.60-1.30 Serum or plasma urea nitrogen/creatinine mass ratio 8 NRG Serum or plasma creatinine measurement with calculation of estimated glomerular filtration rate > NRG Serum or plasma glucose measurement (mass/volume) 129 mg/dL 70-105 Serum or plasma calcium measurement (mass/volume) 8.2 mg/dL 8.5-10.1 Serum or plasma total bilirubin measurement (mass/volume) 0.5 mg/dL 0.1-1.0 Serum or plasma alkaline phosphatase measurement (enzymatic activity/volume) 65 U/L 40-136 Serum or plasma aspartate aminotransferase measurement (enzymatic activity/ volume) 27 U/L 5-34 Serum or plasma alanine aminotransferase measurement (enzymatic activity/volume ) 28 U/L 0-55 Serum or plasma protein measurement (mass/volume) 5.8 g/dL 6.4-8.2 Serum or plasma albumin measurement (mass/volume) 3.6 g/dL 3.2-4.5 Capillary blood glucose measurement by glucometer (mass/volume) - 01/27/17 09: 41 Capillary blood glucose measurement by glucometer (mass/volume) 259 mg/dL 70-110 Encounters ACCT No. Visit Date/Time Discharge Status Pt. Type Provider Facility Loc./Unit Complaint [id number] 06/06/2014 08:47:00 06/06/2014 23: 59:59 [facility] Outpatient GERARDO KISER APRN [id number] 05/16/2014 10:11:00 05/16/2014 23: 59:59 [facility] Out[facility] GERARDO KISER APRN [id number] 05/09/2014 09:17:00 05/09/2014 23: 59:59 [facility] Outpatient GERARDO KISER APRN
--- OUTSIDE RECORDS SUMMARY | 2017-02-10 18:12 | XMS REPORT | Continuity of Care Document ---
Author Author [facility] Address Unknown Phone Unavailable Allergies Active Description Code Type Severity Reaction Onset Reported/Identified Relationship to Patient Clinical Status Yes Penicillins [id number] Drug Allergy Unknown N/A 01/26/2017 Medications Problems [...] 05/14/2016 PRESTON HOLLEY MD Ot Z79.899 OTHER FPC (CURRENT) DRUG THERAPY 05/14/2016 PRESTON HOLLEY MD K Ot R56.9 UNSPECIFIED CONVULSIONS 05/15/2016 PRESTON HOLLEY MD Ot R56.9 UNSPECIFIED CONVULSIONS 05/15/2016 PRESTON HOLLEY MD K Ot R56.9 UNSPECIFIED CONVULSIONS 05/15/2016 PRESTON HOLLEY MD Ot Z79.899 OTHER FLEXIBLE MACHINING SYSTEM MACHINIST (CURRENT) DRUG THERAPY 05/15/2016 RENETTA KRUSE FACC, [...] FACC, ALI FACP CCDS Ot Z79.899 OTHER FLEXIBLE MACHINING SYSTEM MACHINIST (CURRENT) DRUG THERAPY 05/18/2016 PRESTON HOLLEY MD Ot R56.9 UNSPECIFIED CONVULSIONS 05/28/2016 PRESTON HOLLEY MD Ot R56.9 UNSPECIFIED CONVULSIONS 05/28/2016 PRESTON HOLLEY MD K Ot R56.9 UNSPECIFIED CONVULSIONS 05/28/2016 PRESTON HOLLEY MD K Ot Z79.899 OTHER FLEXIBLE MACHINING SYSTEM MACHINIST (CURRENT) DRUG THERAPY 06/10/2016 RENETTA KRUSE FACC, [...] FACC, ALI FACP CCDS Ot Z79.899 OTHER FPC (CURRENT) DRUG THERAPY 06/30/2016 PRESTON HOLLEY MD Ot R56.9 UNSPECIFIED CONVULSIONS 06/30/2016 PRESTON HOLLEY MD K Ot R56.9 UNSPECIFIED CONVULSIONS 07/16/2016 PRESTON HOLLEY MD Ot R56.9 UNSPECIFIED CONVULSIONS 08/15/2016 PRESTON HOLLEY MD Ot R56.9 UNSPECIFIED CONVULSIONS 08/15/2016 PRESTON HOLLEY MD Ot R56.9 UNSPECIFIED CONVULSIONS 08/15/2016 PRESTON HOLLEY MD Ot Z79.899 OTHER FLEXIBLE MACHINING SYSTEM MACHINIST (CURRENT) DRUG THERAPY 08/15/2016 PRESTON HOLLEY MD [...] 09/23/2016 PRESTON HOLLEY MD Ot Z79.899 OTHER FLEXIBLE MACHINING SYSTEM MACHINIST (CURRENT) DRUG THERAPY 09/23/2016 PRESTON HOLLEY MD [...] Ot R56.9 UNSPECIFIED CONVULSIONS 01/20/2017 GLORIA WALDEN RESIDENTIAL REAL ESTATE SALES MANAGER Ot J98.4 OTHER DISORDERS OF LUNG 01/20/2017 GLORIA WALDEN RESIDENTIAL REAL ESTATE SALES MANAGER Ot R56.9 UNSPECIFIED CONVULSIONS 01/23/2017 PRESTON HOLLEY [...] UNSPECIFIED 01/23/2017 GALA TALLEY APRN Ot Z79.84 FPC (CURRENT) USE OF ORAL HYPOGLYC 01/23/2017 GALA TALLEY APRN Ot Z79.899 OTHER FPC (CURRENT) DRUG THERAPY 01/25/2017 GALA TALLEY APRN Ot E11.9 TYPE 2 DIABETES MELLITUS WITHOUT COMPLIC 01/25/2017 GALA TALLEY RESIDENTIAL REAL ESTATE SALES MANAGER Ot I10 ESSENTIAL (PRIMARY) HYPERTENSION 01/25/2017 GALA TALLEY APRN Ot J44.9 CHRONIC OBSTRUCTIVE PULMONARY DISEASE, U 01/25/2017 GALA TALLEY APRN Ot K57.32 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 01/25/2017 GALA TALLEY APRN Ot R19.7 DIARRHEA, UNSPECIFIED 01/25/2017 GALA TALLEY APRN Ot Z79.84 FLEXIBLE MACHINING SYSTEM MACHINIST (CURRENT) USE OF ORAL HYPOGLYC 01/25/2017 GALA TALLEY APRN Ot Z79.899 OTHER FPC (CURRENT) DRUG THERAPY 01/27/2017 STIVEN RAYMOND MD [...] ABS 01/27/2017 STIVEN RAYMOND MD Ot Z79.84 FLEXIBLE MACHINING SYSTEM MACHINIST (CURRENT) USE OF ORAL HYPOGLYC 01/27/2017 STIVEN [...] ABS 01/27/2017 STIVEN RAYMOND MD Ot Z79.84 FLEXIBLE MACHINING SYSTEM MACHINIST (CURRENT) USE OF ORAL HYPOGLYC 01/29/2017 GALA TALLEY APRN Ot E11.9 TYPE 2 DIABETES MELLITUS WITHOUT COMPLIC 01/29/2017 GALA TALLEY RESIDENTIAL REAL ESTATE SALES MANAGER Ot I10 ESSENTIAL (PRIMARY) HYPERTENSION 01/29/2017 GALA TALLEY APRN Ot J44.9 CHRONIC OBSTRUCTIVE PULMONARY DISEASE, U 01/29/2017 GALA TALLEY APRN Ot K57.32 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 Type Provider Facility Loc./Unit Complaint [id number] 06/06/2014 08:47:00 06/06/2014 23: 59:59 [facility] Outpatient GERARDO KISER APRN [id number] 05/16/2014 10:11:00 05/16/2014 23: 59:59 [facility] Out[facility] GERARDO KISER APRN [id number] 05/09/2014 09:17:00 05/09/2014 23: 59:59 [facility] Outpatient GERARDO KISER APRN
== END 2017-01-27 12:40 | disposition home or self-care (01) ==
LOC: DELPENDDIS → EDUNIT# 10:06 → ER 10:09 → UNDOADMOB 12:34 → 4TH 12:34 → UNDODISOB 01-27 13:40
PROVIDERS: ADMIT Family Medicine; ATTEND Family Medicine
DX: K57.32 Diverticulitis of large intestine without perforation or abscess without bleeding (principal); E86.0 Dehydration; E11.9 Type 2 diabetes mellitus 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s; J44.9 Chronic obstructive pulmonary disease, unspecified; I10 Essential (primary) hypertension; F17.210 Nicotine dependence, cigarettes, uncomplicated; Z79.84 Long term (current) use of oral hypoglycemic drugs
CPT/HCPCS: 36415; 80053; 82962; 83605; 83735; 85025; 87040; 94640; 94760; 96361; 96374; 96375; G0378

== ENCOUNTER 2017-03-12 13:00 | Outpatient (RCR) | payer MEDICAID ==
--- OUTSIDE RECORDS SUMMARY | 2017-01-19 10:02 | XMS REPORT | Continuity of Care Document ---
Author Author [facility] Organization [facility] Address Unknown Phone Unavailable Care Team Providers Care Supervisor Sunglasses Name Role Phone PCP Unavailable Source Comments Some departments are not documenting in the electronic medical record. If you do not see the information that you expected, contact Release of Information in the Health Information Management department at [phone] for further assistance in locating additional records.[facility] Active Allergies and Adverse Reactions Not on [...]
[2017-01-19 11:06] LABS: BASOPHILS % (AUTO) 1 % (0-10); EOSINOPHILS # (AUTO) 0.3 10^3/uL (0.0-0.3); EOSINOPHILS % (AUTO) 5 % (0-10); LYMPHOCYTES # (AUTO) 1.4 X 10^3 (1.0-4.0); LYMPHOCYTES % (AUTO) 24 % (12-44); MEAN CORPUSCULAR HEMOGLOBIN 33 PG (25-34); MEAN CORPUSCULAR HGB CONC 35 G/DL (32-36); MEAN CORPUSCULAR VOLUME 97 FL (80-99); MEAN PLATELET VOLUME 9.1 FL (7.4-10.4); MONOCYTES # (AUTO) 0.5 X 10^3 (0.0-1.0); MONOCYTES % (AUTO) 8 % (0-12); NEUTROPHILS # (AUTO) 3.9 X 10^3 (1.8-7.8); NEUTROPHILS % (AUTO) 64 % (42-75); PLATELET COUNT 284 10^3/uL (130-400); RED BLOOD COUNT 4.23 10^6/uL (4.35-5.85); RED CELL DISTRIBUTION WIDTH 12.6 % (10.0-14.5); WHITE BLOOD COUNT 6.1 10^3/uL (4.3-11.0)
[2017-01-19 11:32] LABS: ALANINE AMINOTRANSFERASE 45 U/L (0-55); ALBUMIN 3.9 G/DL (3.2-4.5); ANION GAP 9 MMOL/L (5-14); ASPARTATE AMINO TRANSFERASE 32 U/L (5-34); BILIRUBIN,TOTAL 0.4 MG/DL (0.1-1.0); BLOOD UREA NITROGEN 9 MG/DL (7-18); BUN/CREATININE RATIO 11; CALCIUM 8.9 MG/DL (8.5-10.1); CARBON DIOXIDE 24 MMOL/L (21-32); CHLORIDE 107 MMOL/L (98-107); CREATININE SERUM 0.81 MG/DL (0.60-1.30); GFR ESTIMATED > 60; GLUCOSE 115 MG/DL (70-105); POTASSIUM 4.5 MMOL/L (3.6-5.0); SODIUM 140 MMOL/L (135-145); TOTAL PROTEIN 6.6 G/DL (6.4-8.2)
[~2017-03-12 13:00] MED LIST changes: +ALBU1.25 IH; +ASPI-999 PO; +ATEN25TA PO; +ATOR40TA70 PO; +CIPR500T4 PO; +ESLI400T PO; +INSU100I14 SQ; +INSU100I29 SQ; +LACO200T2 PO; +LEVO750T9 PO; +METR500T21 PO; +ONDA8TAB13 PO; +PROM25TA14 PO; +RANI150T11 PO; +RT-ALBUINH IH; +VENL150C98 PO; +VENL75CA93 PO
[2017-03-21] MEDS ORDERED: HYOS0.1283 SL (11:19)
[2017-03-24] MEDS ORDERED: LISI-556 PO (15:39)
[2017-03-30] MEDS ORDERED: LACT1CAP8 PO (20:59)
[2017-03-30] MEDS ORDERED: ONDA4TAB8 PO (20:59)
== END 2017-04-19 | disposition home or self-care (01) ==
LOC: PULM 13:00
PROVIDERS: ATTEND Nurse Practitioner Family
DX: J98.4 Other disorders of lung (principal); R56.9 Unspecified convulsions
CPT/HCPCS: 36415; 80053; 85025; 99211

== ENCOUNTER → 2017-03-21 | Emergency (ER) | payer MEDICAID ==
[~2017-03-21] VITALS: Ht 157.5 cm; Wt 83.0 kg
[~2017-03-21] MED LIST changes: +HYOS0.1283 SL; +IOHEXOL 350 MG/ML 100 ML (OMNIPAQUE 350) VIAL IV ONE; +LACTATED RINGERS 1,000 ML IV SCH; +LISI-556 PO; +LORazepam INJ 2 MG/ML (ATIVAN) VIAL IVP ONE; +NS 100 ML (IVPB) BAG IV ONE
[2017-03-21 10:06] LABS: BILIRUBIN,URINE NEGATIVE (NEGATIVE); KETONES,URINE NEGATIVE (NEGATIVE); LEUKOCYTE ESTERASE ,URINE NEGATIVE (NEGATIVE); NITRITE,URINE NEGATIVE (NEGATIVE); PH,URINE 6 (5-9); PROTEIN,URINE NEGATIVE (NEGATIVE); UROBILINOGEN,URINE NORMAL (NORMAL)
[2017-03-21 10:07] LABS: BASOPHILS % (AUTO) 1 % (0-10); EOSINOPHILS # (AUTO) 0.2 10^3/uL (0.0-0.3); EOSINOPHILS % (AUTO) 2 % (0-10); LYMPHOCYTES # (AUTO) 1.6 X 10^3 (1.0-4.0); LYMPHOCYTES % (AUTO) 24 % (12-44); MEAN CORPUSCULAR HEMOGLOBIN 33 PG (25-34); MEAN CORPUSCULAR HGB CONC 34 G/DL (32-36); MEAN CORPUSCULAR VOLUME 96 FL (80-99); MEAN PLATELET VOLUME 10.7 FL (7.4-10.4); MONOCYTES # (AUTO) 0.3 X 10^3 (0.0-1.0); MONOCYTES % (AUTO) 5 % (0-12); NEUTROPHILS # (AUTO) 4.5 X 10^3 (1.8-7.8); NEUTROPHILS % (AUTO) 68 % (42-75); PLATELET COUNT 240 10^3/uL (130-400); RED BLOOD COUNT 4.58 10^6/uL (4.35-5.85); RED CELL DISTRIBUTION WIDTH 13.2 % (10.0-14.5); WHITE BLOOD COUNT 6.6 10^3/uL (4.3-11.0)
[2017-03-21 10:26] LABS: ALANINE AMINOTRANSFERASE 32 U/L (0-55); ALBUMIN 4.3 G/DL (3.2-4.5); ANION GAP 12 MMOL/L (5-14); ASPARTATE AMINO TRANSFERASE 23 U/L (5-34); BILIRUBIN,TOTAL 0.6 MG/DL (0.1-1.0); BLOOD UREA NITROGEN 12 MG/DL (7-18); BUN/CREATININE RATIO 14; CALCIUM 9.4 MG/DL (8.5-10.1); CARBON DIOXIDE 25 MMOL/L (21-32); CHLORIDE 103 MMOL/L (98-107); CREATININE SERUM 0.83 MG/DL (0.60-1.30); GFR ESTIMATED > 60; GLUCOSE 134 MG/DL (70-105); POTASSIUM 3.9 MMOL/L (3.6-5.0); SODIUM 140 MMOL/L (135-145); TOTAL PROTEIN 6.6 G/DL (6.4-8.2)
--- NOTE | 2017-03-21 10:27 | ED Abdominal Pain ---
General Chief Complaint: Abdominal/GI Problems Stated Complaint: BLOODY AND FREQUENT STOOL Nursing Triage Note: PT CO OF [facility] STATES HAS HAD 11 STOOLS TODAY, HAS BEEN HAVING THIS FOR 2MONTHS SINCE IN HOSP FOR DIVERTICULITIS Sepsis Screen: No Definite Risk Source of Information: Patient Exam Limitations: No Limitations History of Present Illness Time Seen By Provider: 10:25 Initial Comments To ER with abdominal cramping and pain. She states that she's had 20-30 episodes of diarrhea per day which are occasionally noted to have blood or mucus in them. This began 2 months ago she was admitted to the hospital for diverticulitis. She states that she has seen [facility] for this and has been eating yogurt, taking an efce-xhz-uojzezt probiotic and Imodium as directed but continues to have diarrhea. She denies nausea vomiting fevers or chills. She believes she was given something during her stay at that time which has caused persistent insomnia as well. Timing/Duration: Other (2 months) Severity/Quality: Cramping Radiation: No Radiation Activities at Onset: None Allergies and Home Medications Allergies Coded Allergies: Penicillins (Verified Allergy, Unknown, 01/26/17) Home Medications Albuterol Sulfate 1.25 Mg/3 Ml Vial.neb, 1.25 MG IH QID PRN for SHORTNESS OF BREATH, (Reported) Albuterol Sulfate 1 Puff Puff, 2 PUFF IH QID PRN for SHORTNESS OF BREATH, ( Reported) Alprazolam 2 Mg Tablet, 1 MG PO DAILY@1400, (Reported) TAKES 1/2 OF A (2 MG) TABLET Aspirin 81 Mg Tab.chew, 81 MG PO DAILY, (Reported) Atenolol 25 Mg Tablet, 25 MG PO DAILY, (Reported) Atorvastatin Calcium 40 Mg Tablet, 40 MG PO HS, (Reported) Budesonide/Formoterol Fumarate 10.2 Gm Hfa.aer.ad, 2 PUFF IH BID, (Reported) Doxepin HCl 150 Mg Capsule, 150 MG PO HS, (Reported) Eslicarbazepine Acetate 400 Mg Tablet, PO UD, (Reported) HAS NOT STARTED YET / 1 TAB PO EVERY EVENING X 10 DAYS, THEN 2 TABS THEREAFTER. Hydrocodone/Acetaminophen 1 Each Tablet, 1 TAB PO TID, (Reported) Hyoscyamine Sulfate 0.125 Mg Tab.subl, 0.125 MG SL Q6H PRN for CRAMPS, #20 Prescribed by: GALA TALLEY on 03/21/17 1119 Insulin Aspart 300 Units/3 Ml Solution, 40 UNITS SQ TIDWM, (Reported) Insulin Detemir 100 Unit/1 Ml Insuln.pen, 56 UNITS SQ BID, (Reported) Lacosamide 200 Mg Tablet, 200 MG PO BID, (Reported) Levofloxacin 750 Mg Tablet, 750 MG PO DAILY for 7 Days Prescribed by: STIVEN RAYMOND on 01/27/17 1239 Levothyroxine Sodium 150 Mcg Tablet, 150 MCG PO DAILY, (Reported) Metronidazole 500 Mg Tablet, 500 MG PO TID for 7 Days, #21 FILLED 01/23/17 #21 FOR A 7 DAY THERAPY Prescribed by: STIVEN RAYMOND on 01/27/17 1239 Montelukast Sodium 10 Mg Tablet, 10 MG PO DAILY, (Reported) Olanzapine 10 Mg Tablet, 10 MG PO HS, (Reported) Ondansetron 8 Mg Tab.rapdis, 8 MG PO Q6H PRN for NAUSEA/VOMITING, (Reported) Promethazine HCl 25 Mg Tablet, 25 MG PO Q6H PRN for NAUSEA/VOMITING for 7 Days, #20 Prescribed by: STIVEN RAYMOND on 01/27/17 1239 Ranitidine HCl 150 Mg Tablet, 150 MG PO BID, (Reported) Venlafaxine HCl 75 Mg Cap.er.24h, 75 MG PO DAILY, (Reported) TAKES IN CONJUCTION WITH VENLAFAXINE 150MG FOR A TOTAL DOSE OF 225MG Venlafaxine HCl 150 Mg Cap.er.24h, 150 MG PO DAILY, (Reported) TAKES IN CONJUCTION WITH VENLAFAXINE 75MG FOR A TOTAL DOSE OF 225MG Review of Systems Constitutional: see HPI EENTM: No Symptoms Reported Respiratory: No Symptoms Reported Cardiovascular: No Symptoms Reported Gastrointestinal: See HPI Genitourinary: No Symptoms Reported Musculoskeletal: no symptoms reported Skin: no symptoms reported Psychiatric/Neurological: No Symptoms Reported Endocrine: No Symptoms Reported Hematologic/Lymphatic: No Symptoms Reported Past Qrlmgco-Unmnez-Rgrcxt Hx Patient Social History Alcohol Use: Denies Use Recreational Drug Use: No Smoking Status: Current Everyday Smoker Type Used: Cigarettes Recent Foreign Travel: No Contact w/Someone Who Travel: No Recent Infectious Disease Expo: No Recent Hopitalizations: Yes (DIVERTICULITIS) Immunizations Up To Date Tetanus Booster (TDap): Unknown PED Vaccines UTD: No Date of Pneumonia Vaccine: Jul 11, 2014 Date of Influenza Vaccine: Nov 02, 2016 Seasonal Allergies Seasonal Allergies: No Surgeries HX Surgeries: No Surgeries: Adenoidectomy, Appendectomy, Hysterectomy, Tonsillectomy Respiratory Hx Respiratory Disorders: Yes Respiratory Disorders: Chronic Bronchitis, COPD, Emphysema Cardiovascular Hx Cardiac Disorders: Yes Cardiac Disorders: Heart Attack, High Cholesterol, Hypertension Neurological Hx Neurological Disorders: No 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 System Sexually Transmitted Disease: No HIV/AIDS: No Female 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 Disorders: Denies 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 Genitourinary Hx Genitourinary Disorders: No Gastrointestinal Hx Gastrointestinal Disorders: Yes (DIVERTICULITIS ) Gastrointestinal Disorders: Diverticulosis Musculoskeletal Hx Musculoskeletal Disorders: Yes (chronic pain) Musculoskeletal Disorders: Chronic Back Pain Endocrine Hx Endocrine Disorders: Yes Endocrine Disorders: Diabetes, Non-Insulin dep HEENT HX ENT Disorders: No Loss of Vision: Denies Hearing Impairment: Denies Cancer Hx Cancer: No Psychosocial Hx Psychiatric Problems: No Behavioral Health Disorders: Sleep Difficulties, Bipolar Blood Transfusions Adverse Reaction to a Blood Tr: No Family Medical History Significant Family History: No Pertinent Family Hx Family Medial History: FH: cancer 19 MOTHER Myocardial infarction 19 FATHER (48 years old) Physical Exam Vital Signs VS - Last 72 Hours, by Label 03/21/17 09:19 Temp 97.9 Pulse 69 Resp 18 B/P (MAP) 113/79 Pulse Ox 97 Capillary Refill : Less Than 3 Seconds General Appearance: WD/WN, no apparent distress HEENT: PERRL/EOMI, normal ENT inspection Neck: non-tender, full range of motion Respiratory: normal breath sounds, no respiratory distress, no accessory muscle use Cardiovascular: regular rate, rhythm, no murmur Gastrointestinal: normal bowel sounds, non tender, soft Extremities: normal range of motion, non-tender Neurologic/Psychiatric: alert, oriented x 3, other (she talks nearly nonstop and a loud pressured voice and appears nearly manic.) Skin: normal color, warm/dry Progress/Results/Core Measures Results/Orders Lab Results Laboratory Tests Test 03/21/17 09:26 03/21/17 10:00 Range/Units Urine Color YELLOW Urine Clarity CLEAR Urine pH 6 5-9 Urine Specific [place] 1.020 1.016-1.022 Urine Protein NEGATIVE NEGATIVE Urine Glucose (UA) NEGATIVE NEGATIVE Urine Ketones NEGATIVE NEGATIVE Urine Nitrite NEGATIVE NEGATIVE Urine Bilirubin NEGATIVE NEGATIVE Urine Urobilinogen NORMAL NORMAL MG/DL Urine Leukocyte Esterase NEGATIVE NEGATIVE Urine RBC (Auto) NEGATIVE NEGATIVE Urine RBC NONE /HPF Urine WBC NONE /HPF Urine Squamous Epithelial Cells 2-5 /HPF Urine Crystals NONE /LPF Urine Bacteria FEW H /HPF Urine Casts NONE /LPF Urine Mucus NEGATIVE /LPF Urine Culture Indicated NO White Blood Count 6.6 4.3-11.0 10^3/uL Red Blood Count 4.58 4.35-5.85 10^6/uL Hemoglobin 14.9 11.5-16.0 G/DL Hematocrit 44 35-52 % Mean Corpuscular Volume 96 80-99 FL Mean Corpuscular Hemoglobin 33 25-34 PG Mean Corpuscular Hemoglobin Concent 34 32-36 G/DL Red Cell Distribution Width 13.2 10.0-14.5 % Platelet Count 240 130-400 10^3/uL Mean Platelet Volume 10.7 H 7.4-10.4 FL Neutrophils (%) (Auto) 68 42-75 % Lymphocytes (%) (Auto) 24 12-44 % Monocytes (%) (Auto) 5 0-12 % Eosinophils (%) (Auto) 2 0-10 % Basophils (%) (Auto) 1 0-10 % Neutrophils # (Auto) 4.5 1.8-7.8 X 10^3 Lymphocytes # (Auto) 1.6 1.0-4.0 X 10^3 Monocytes # (Auto) 0.3 0.0-1.0 X 10^3 Eosinophils # (Auto) 0.2 0.0-0.3 10^3/uL Basophils # (Auto) 0.0 0.0-0.1 10^3/uL Sodium Level 140 135-145 MMOL/L Potassium Level 3.9 3.6-5.0 MMOL/L Chloride Level 103 98-107 MMOL/L Carbon Dioxide Level 25 21-32 MMOL/L Anion Gap 12 5-14 MMOL/L Blood Urea Nitrogen 12 7-18 MG/DL Creatinine 0.83 0.60-1.30 MG/DL Estimat Glomerular Filtration Rate > 60 BUN/Creatinine Ratio 14 Glucose Level 134 H 70-105 MG/DL Calcium Level 9.4 8.5-10.1 MG/DL Total Bilirubin 0.6 0.1-1.0 MG/DL Aspartate Amino Transf (AST/SGOT) 23 5-34 U/L Alanine Aminotransferase (ALT/SGPT) 32 0-55 U/L Alkaline Phosphatase 72 40-136 U/L Total Protein 6.6 6.4-8.2 G/DL Albumin 4.3 3.2-4.5 G/DL Thyroid Stimulating Hormone (TSH) 2.13 0.35-4.94 UIU/ML My Orders Orders - GALA TALLEY APRN C Difficile Ag + Toxin A/B. (03/21/17 10:23) Stool Culture (03/21/17 10:23) Ova And Parasite Exam (03/21/17 10:23) Lactated Ringers (Lr 1000 Ml Iv Solution (03/21/17 10:30) Lorazepam Injection (Ativan Injection) (03/21/17 10:30) Thyroid Stimulating Hormone (03/21/17 10:23) Ct Abdomen/Pelvis W (03/21/17 10:23) Iohexol Injection (Omnipaque 350 Mg/Ml 1 (03/21/17 10:30) Ns (Ivpb) (Sodium Chloride 0.9% Ivpb Bag (03/21/17 10:30) Medications Given in ED Current Medications Medications Dose Ordered Sig/Peterson Route Start Time Stop Time Status Last Admin Dose Admin Iohexol 100 ml ONCE ONCE IV 03/21/17 10:30 03/21/17 10:34 DC 03/21/17 10:34 100 ML Lorazepam 1 mg ONCE ONCE IVP 03/21/17 10:30 03/21/17 10:31 DC 03/21/17 10:59 1 MG Sodium Chloride 80 ml ONCE ONCE IV 03/21/17 10:30 03/21/17 10:34 DC 03/21/17 10:34 80 ML Vital Signs/I&O Vital Sign - Last 12Hours 03/21/17 09:19 Temp 97.9 Pulse 69 Resp 18 B/P (MAP) 113/79 Pulse Ox 97 Blood Pressure Mean: 90 Diagnostic Imaging Diagonstic Imaging: CT Comments NAME: YANETH YAÑEZ REC#: [id number] PT STATUS: REG ER : 1970 PHYSICIAN: GALA TALLEY APRN ADMIT DATE: 03/21/17/ER Draft Date of Exam:03/21/17 CT ABDOMEN/PELVIS W PROCEDURE: CT abdomen and pelvis with contrast. TECHNIQUE: Multiple contiguous axial images were obtained through the abdomen and pelvis after administration of intravenous contrast. INDICATION: Severe diarrhea, abdominal pain diffusely. CORRELATION STUDY: 01/23/2017 FINDINGS: LOWER THORAX: Clear. LIVER: Mild generalized low attenuation. GALLBLADDER: Present and unremarkable. No bile duct dilatation. SPLEEN: Unremarkable. PANCREAS: Unremarkable. ADRENAL GLANDS: Unremarkable. KIDNEYS: Normal configuration. No calcification or obstruction. ABDOMINAL AORTA: Unremarkable, nonaneurysmal. GASTROINTESTINAL TRACT: There is again noted extensive colonic diverticulosis. The previously noted findings of acute descending colon diverticulitis appears relatively resolved. Very questionable wall thickening sigmoid colon is noted. Definitive inflammatory changes, however, are not otherwise present. URINARY BLADDER: Unremarkable. REPRODUCTIVE: Uterus is absent. No free pelvic fluid. OSSEOUS STRUCTURES: No acute abnormality. IMPRESSION: 1. Fairly prominent colonic diverticulosis. The previously noted acute diverticulitis of the descending colon appears relatively resolved. A definitive acute inflamed diverticulum does not appear to be present on followup. There is very questionable wall thickening about the distal colon, could be reflective of nonspecific colitis or simply owing to relatively decompressed appearance 2. Mild diffuse hepatic steatosis. Dictated on workstation # [id number] Dict: 03/21/17 1051 Trans: 03/21/17 1115 OLLIE [id number] Interpreted by: DELFINA MACIAS DO Electronically signed by: Departure Communication Progress Notes Patient did have a bowel movement here, however it was formed and not diarrhea. As such, labs states they are unable to run the C. difficile test as the C. difficile test is to be on liquid stool. Patient states that she has an adequate supply of hydrocodone at home. No improvement and the cramping after lorazepam here. Impression Impression: Primary Impression: Colitis Disposition: HOME, SELF-CARE Condition: Stable Departure-Patient Inst. Decision time for Depature: 11:18 Referrals: [facility] (PCP) Primary Care Physician Patient Instructions: NO INSTRUCTIONS GIVEN Add. Discharge Instructions: 1. Drink plenty of fluids 2. Medication as directed 3. Follow-up with your regular doctor to test for C. difficile and to get referral to a surgeon for colonoscopy. All discharge instructions reviewed with patient and/or family. Voiced understanding. Scripts Hyoscyamine Sulfate (Levsin-Sl) 0.125 Mg Tab.subl 0.125 MG SL Q6H Y for CRAMPS, #20 TAB Prov: GALA TALLEY APRN 03/21/17 GALA TALLEY APRN March 21, 2017 10:27
--- NOTE | 2017-03-21 11:15 | Diagnostic Imaging Report ---
PROCEDURE: CT abdomen and pelvis with contrast. TECHNIQUE: Multiple contiguous axial images were obtained through the abdomen and pelvis after administration of intravenous contrast. INDICATION: Severe diarrhea, abdominal pain diffusely. CORRELATION STUDY: 01/23/2017 FINDINGS: LOWER THORAX: Clear. LIVER: Mild generalized low attenuation. GALLBLADDER: Present and unremarkable. No bile duct dilatation. SPLEEN: Unremarkable. PANCREAS: Unremarkable. ADRENAL GLANDS: Unremarkable. KIDNEYS: Normal configuration. No calcification or obstruction. ABDOMINAL AORTA: Unremarkable, nonaneurysmal. GASTROINTESTINAL TRACT: There is again noted extensive colonic diverticulosis. The previously noted findings of acute descending colon diverticulitis appears relatively resolved. Very questionable wall thickening sigmoid colon is noted. Definitive inflammatory changes, however, are not otherwise present. URINARY BLADDER: Unremarkable. REPRODUCTIVE: Uterus is absent. No free pelvic fluid. OSSEOUS STRUCTURES: No acute abnormality. IMPRESSION: 1. Fairly prominent colonic diverticulosis. The previously noted acute diverticulitis of the descending colon appears relatively resolved. A definitive acute inflamed diverticulum does not appear to be present on followup. There is very questionable wall thickening about the distal colon, could be reflective of nonspecific colitis or simply owing to relatively decompressed appearance 2. Mild diffuse hepatic steatosis. Dictated by: Dictated on workstation # [id number]
[2017-03-21 12:05] VITALS: BP 115/72
== END | disposition home or self-care (01) ==
LOC: EDUNIT# 09:05 → ER 09:07
DX: K52.9 Noninfective gastroenteritis and colitis, unspecified (principal); K57.30 Diverticulosis of large intestine without perforation or abscess without bleeding; I10 Essential (primary) hypertension; E11.9 Type 2 diabetes mellitus 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s; J44.9 Chronic obstructive pulmonary disease, unspecified; F17.210 Nicotine dependence, cigarettes, uncomplicated; Z79.4 Long term (current) use of insulin; Z79.82 Long term (current) use of aspirin; Z79.899 Other long term (current) drug therapy
CPT/HCPCS: 36415; 74177; 80053; 81000; 84443; 85025; 87045; 87046; 87449; 96361; 96374

== ENCOUNTER 2017-03-24 13:22 | Emergency (ER) | payer MEDICAID ==
[~2017-03-24] VITALS: Ht 157.5 cm; Wt 83.9 kg
[~2017-03-24 13:22] MED LIST changes: -IOHEXOL 350 MG/ML 100 ML (OMNIPAQUE 350) VIAL IV ONE; -LACTATED RINGERS 1,000 ML IV SCH; -LISI-556 PO; -LORazepam INJ 2 MG/ML (ATIVAN) VIAL IVP ONE; -NS 100 ML (IVPB) BAG IV ONE
[2017-03-24] MEDS ORDERED: LORazepam INJ 2 MG/ML (ATIVAN) VIAL IVP ONE (13:30)
[2017-03-24] MEDS ORDERED: ASPIRIN 81 MG CHEW (CHILDREN'S ASA) PO ONE (13:30)
--- NOTE | 2017-03-24 13:30 | ED Chest Pain ---
General Chief Complaint: Chest Pain Stated Complaint: CHEST PAIN Source: patient Exam Limitations: no limitations History of Present Illness Time seen by provider: 13:29 Initial Comments To ER with reports of central chest pain. Pain is worsened by coughing and deep breathing. She has had a cough for the past few days. This is associated with shortness of breath as well. She also had some diaphoresis. This began about 12 p.m. today. She states that she had some old leftover nitroglycerin and she took one of these at home with minimal improvement. She states that she does feel anxious. Patient did have a cardiac catheterization done here on 05/16/[address] Girard who is her primary technical operations manager. This showed no angiographically significant coronary artery disease. Timing/Duration: 1-3 hours Severity/Quality: severe Location: central Radiation: no radiation Activities at Onset: none ASA po WAREHOUSEMAN: No NTG SL WAREHOUSEMAN: Yes Allergies and Home Medications Allergies Coded Allergies: Penicillins (Verified Allergy, Unknown, 01/26/17) Home Medications Albuterol Sulfate 1.25 Mg/3 Ml Vial.neb, 1.25 MG IH QID PRN for SHORTNESS OF BREATH, (Reported) Albuterol Sulfate 1 Puff Puff, 2 PUFF IH QID PRN for SHORTNESS OF BREATH, ( Reported) Alprazolam 2 Mg Tablet, 1 MG PO DAILY@1400, (Reported) TAKES 1/2 OF A (2 MG) TABLET Aspirin 81 Mg Tab.chew, 81 MG PO DAILY, (Reported) Atenolol 25 Mg Tablet, 25 MG PO DAILY, (Reported) Atorvastatin Calcium 40 Mg Tablet, 40 MG PO HS, (Reported) Budesonide/Formoterol Fumarate 10.2 Gm Hfa.aer.ad, 2 PUFF IH BID, (Reported) Doxepin HCl 150 Mg Capsule, 150 MG PO HS, (Reported) Eslicarbazepine Acetate 400 Mg Tablet, PO UD, (Reported) HAS NOT STARTED YET / 1 TAB PO EVERY EVENING X 10 DAYS, THEN 2 TABS THEREAFTER. Hydrocodone/Acetaminophen 1 Each Tablet, 1 TAB PO TID, (Reported) Hyoscyamine Sulfate 0.125 Mg Tab.subl, 0.125 MG SL Q6H PRN for CRAMPS, #20 Prescribed by: GALA TALLEY on 03/21/17 1119 Insulin Aspart 300 Units/3 Ml Solution, 40 UNITS SQ TIDWM, (Reported) Insulin Detemir 100 Unit/1 Ml Insuln.pen, 56 UNITS SQ BID, (Reported) Lacosamide 200 Mg Tablet, 200 MG PO BID, (Reported) Levofloxacin 750 Mg Tablet, 750 MG PO DAILY for 7 Days Prescribed by: STIVEN RAYMOND on 01/27/17 1239 Levothyroxine Sodium 150 Mcg Tablet, 150 MCG PO DAILY, (Reported) Metronidazole 500 Mg Tablet, 500 MG PO TID for 7 Days, #21 FILLED 01/23/17 #21 FOR A 7 DAY THERAPY Prescribed by: STIVEN RAYMOND on 01/27/17 1239 Montelukast Sodium 10 Mg Tablet, 10 MG PO DAILY, (Reported) Olanzapine 10 Mg Tablet, 10 MG PO HS, (Reported) Ondansetron 8 Mg Tab.rapdis, 8 MG PO Q6H PRN for NAUSEA/VOMITING, (Reported) Promethazine HCl 25 Mg Tablet, 25 MG PO Q6H PRN for NAUSEA/VOMITING for 7 Days, #20 Prescribed by: STIVEN RAYMOND on 01/27/17 1239 Ranitidine HCl 150 Mg Tablet, 150 MG PO BID, (Reported) Venlafaxine HCl 75 Mg Cap.er.24h, 75 MG PO DAILY, (Reported) TAKES IN CONJUCTION WITH VENLAFAXINE 150MG FOR A TOTAL DOSE OF 225MG Venlafaxine HCl 150 Mg Cap.er.24h, 150 MG PO DAILY, (Reported) TAKES IN CONJUCTION WITH VENLAFAXINE 75MG FOR A TOTAL DOSE OF 225MG Review of Systems Constitutional: see HPI, diaphoresis EENTM: No Symptoms Reported Respiratory: See HPI, Cough, Shortness of Air Cardiovascular: See HPI, Chest Pain, Denies Edema, Denies Irregular Heart Rate , Denies Lightheadedness, Denies Palpitations, Denies Syncope Gastrointestinal: See HPI, Denies Nausea, Denies Vomiting Genitourinary: No Symptoms Reported Musculoskeletal: no symptoms reported Skin: no symptoms reported Psychiatric/Neurological: No Symptoms Reported Endocrine: No Symptoms Reported Past Zusrtgr-Gdujkd-Tvrtrx Hx Patient Social History Type Used: Cigarettes Recent Hopitalizations: Yes (DIVERTICULITIS) Immunizations Up To Date Tetanus Booster (TDap): Unknown PED Vaccines UTD: No Date of Pneumonia Vaccine: Jul 11, 2014 Date of Influenza Vaccine: Nov 02, 2016 Seasonal Allergies Seasonal Allergies: No Surgeries HX Surgeries: No Surgeries: Adenoidectomy, Appendectomy, Hysterectomy, Tonsillectomy Respiratory Hx Respiratory Disorders: Yes Respiratory Disorders: Chronic Bronchitis, COPD, Emphysema Cardiovascular Hx Cardiac Disorders: Yes Cardiac Disorders: Heart Attack, High Cholesterol, Hypertension Neurological Hx Neurological Disorders: No 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 System Sexually Transmitted Disease: No HIV/AIDS: No Female 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 Disorders: 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 Genitourinary Hx Genitourinary Disorders: No Gastrointestinal Hx Gastrointestinal Disorders: Yes (DIVERTICULITIS ) Gastrointestinal Disorders: Diverticulosis Musculoskeletal Hx Musculoskeletal Disorders: Yes (chronic pain) Musculoskeletal Disorders: Chronic Back Pain Endocrine Hx Endocrine Disorders: Yes Endocrine Disorders: Diabetes, Non-Insulin dep HEENT HX ENT Disorders: No Loss of Vision: Denies Hearing Impairment: Denies Cancer Hx Cancer: No Psychosocial Hx Psychiatric Problems: No Behavioral Health Disorders: Sleep Difficulties, Bipolar Blood Transfusions Adverse Reaction to a Blood Tr: No Family Medical History Significant Family History: No Pertinent Family Hx Family Medial History: FH: cancer 19 MOTHER Myocardial infarction 19 FATHER (48 years old) Physical Exam Vital Signs Vital Sign - Last 12Hours 03/24/17 13:32 Temp 97.6 Pulse 87 Resp 18 B/P (MAP) 134/89 Pulse Ox 94 O2 Delivery Room Air Capillary Refill : General Appearance: No Apparent Distress, WD/WN, Anxious HEENT: PERRL/EOMI, TMs Normal, Normal ENT Inspection Neck: Full Range of Motion, Normal Inspection Respiratory: Normal Breath Sounds, No Accessory Muscle Use, No Respiratory Distress Cardiovascular: Regular Rate, Rhythm, Normal Peripheral Pulses Gastrointestinal: Non Tender, Soft Extremity: Normal Capillary Refill, Normal Inspection Neurologic/Psychiatric: Alert, Oriented x3, Other (patient is very dramatic, very anxious appearing) Skin: Normal Color, Warm/Dry Progress/Results/Core Measures Results/Orders Lab Results Laboratory Tests Test 03/24/17 13:26 03/24/17 15:00 Range/Units White Blood Count 6.7 4.3-11.0 10^3/uL Red Blood Count 4.80 4.35-5.85 10^6/uL Hemoglobin 15.7 11.5-16.0 G/DL Hematocrit 45 35-52 % Mean Corpuscular Volume 94 80-99 FL Mean Corpuscular Hemoglobin 33 25-34 PG Mean Corpuscular Hemoglobin Concent 35 32-36 G/DL Red Cell Distribution Width 12.9 10.0-14.5 % Platelet Count 272 130-400 10^3/uL Mean Platelet Volume 10.2 7.4-10.4 FL Neutrophils (%) (Auto) 68 42-75 % Lymphocytes (%) (Auto) 22 12-44 % Monocytes (%) (Auto) 8 0-12 % Eosinophils (%) (Auto) 2 0-10 % Basophils (%) (Auto) 0 0-10 % Neutrophils # (Auto) 4.5 1.8-7.8 X 10^3 Lymphocytes # (Auto) 1.5 1.0-4.0 X 10^3 Monocytes # (Auto) 0.5 0.0-1.0 X 10^3 Eosinophils # (Auto) 0.1 0.0-0.3 10^3/uL Basophils # (Auto) 0.0 0.0-0.1 10^3/uL Prothrombin Time 11.9 L 12.2-14.7 SEC INR Comment 0.9 0.8-1.4 Activated Partial Thromboplast Time 31 24-35 SEC Sodium Level 138 135-145 MMOL/L Potassium Level 4.0 3.6-5.0 MMOL/L Chloride Level 101 98-107 MMOL/L Carbon Dioxide Level 25 21-32 MMOL/L Anion Gap 12 5-14 MMOL/L Blood Urea Nitrogen 14 7-18 MG/DL Creatinine 0.80 0.60-1.30 MG/DL Estimat Glomerular Filtration Rate > 60 BUN/Creatinine Ratio 18 Glucose Level 153 H 70-105 MG/DL Calcium Level 9.9 8.5-10.1 MG/DL Magnesium Level 2.2 1.8-2.4 MG/DL Total Bilirubin 0.5 0.1-1.0 MG/DL Aspartate Amino Transf (AST/SGOT) 19 5-34 U/L Alanine Aminotransferase (ALT/SGPT) 33 0-55 U/L Alkaline Phosphatase 76 40-136 U/L Myoglobin 15.8 10.0-92.0 NG/ML Troponin I < 0.30 < 0.30 <0.30 NG/ML Total Protein 8.0 6.4-8.2 G/DL Albumin 4.8 H 3.2-4.5 G/DL My Orders Orders - GALA TALLEY TRAVEL CLERK Cbc With Automated Diff (03/24/17 13:25) Magnesium (5/23/17 13:25) Chest 1 View, Ap/Pa Only (03/24/17 13:25) Ekg Tracing (03/24/17 13:25) Cardiac Profile 1 (03/24/17 13:25) Comprehensive Metabolic Panel (03/24/17 13:25) Myoglobin Serum (03/24/17 13:25) Protime With Inr (03/24/17 13:25) Partial Thromboplastin Time (03/24/17 13:25) O2 (03/24/17 13:25) Monitor-Rhythm Ecg Trace Only (03/24/17 13:25) Lipid Panel (03/25/17 06:00) Aspirin Chewable Tablet (Baby Aspirin Ch (03/24/17 13:30) Saline Lock/Iv-Start (03/24/17 13:25) Lorazepam Injection (Ativan Injection) (03/24/17 13:30) Iohexol Injection (Omnipaque 350 Mg/Ml 1 (03/24/17 14:00) Sodium Chloride Flush (Catheter Flush Sy (03/24/17 14:00) Ns (Ivpb) (Sodium Chloride 0.9% Ivpb Bag (03/24/17 14:00) Troponin I (03/24/17 14:53) Medications Given in ED Current Medications Medications Dose Ordered Sig/Peterson Route Start Time Stop Time Status Last Admin Dose Admin Aspirin 324 mg ONCE ONCE PO 03/24/17 13:30 03/24/17 13:31 DC 03/24/17 13:30 324 MG Lorazepam 1.5 mg ONCE ONCE IVP 03/24/17 13:30 03/24/17 13:31 DC 03/24/17 13:32 1.5 MG Vital Signs/I&O Vital Sign - Last 12Hours 03/24/17 03/24/17 03/24/17 13:32 13:44 13:55 Temp 97.6 Pulse 87 87 Resp 18 18 B/P (MAP) 134/89 155/99 Pulse Ox 94 94 O2 Delivery Room Air Room Air Room Air Progress Note : Progress Note 1418-patient refuses CT angiogram of her chest because she does not like the way that contrast makes her feel that she is not allergic to it. Departure Impression Impression: Primary Impression: Chest pain Disposition: 01 HOME, SELF-CARE Condition: Stable Departure-Patient Inst. Decision time for Depature: 14:29 Referrals: [facility] (PCP/Family) Primary Care Physician MALLY BRITO JULIE A MD Patient Instructions: Chest Pain That Is Not Caused by the Heart (DC) Add. Discharge Instructions: All discharge instructions reviewed with patient and/or family. Voiced understanding. Scripts Lisinopril (Lisinopril) 5 Mg Tablet 5 MG PO DAILY, #14 TAB Prov: GALA TALLEY APRN 03/24/17 GALA TALLEY APRN March 24, 2017 13:30
[2017-03-24 13:33] LABS: BASOPHILS % (AUTO) 0 % (0-10); EOSINOPHILS # (AUTO) 0.1 10^3/uL (0.0-0.3); EOSINOPHILS % (AUTO) 2 % (0-10); LYMPHOCYTES # (AUTO) 1.5 X 10^3 (1.0-4.0); LYMPHOCYTES % (AUTO) 22 % (12-44); MEAN CORPUSCULAR HEMOGLOBIN 33 PG (25-34); MEAN CORPUSCULAR HGB CONC 35 G/DL (32-36); MEAN CORPUSCULAR VOLUME 94 FL (80-99); MEAN PLATELET VOLUME 10.2 FL (7.4-10.4); MONOCYTES # (AUTO) 0.5 X 10^3 (0.0-1.0); MONOCYTES % (AUTO) 8 % (0-12); NEUTROPHILS # (AUTO) 4.5 X 10^3 (1.8-7.8); NEUTROPHILS % (AUTO) 68 % (42-75); PLATELET COUNT 272 10^3/uL (130-400); RED CELL DISTRIBUTION WIDTH 12.9 % (10.0-14.5); WHITE BLOOD COUNT 6.7 10^3/uL (4.3-11.0)
[2017-03-24 13:42] LABS: INR 0.9 (0.8-1.4); PROTHROMBIN TIME PATIENT 11.9 SEC (12.2-14.7)
--- NOTE | 2017-03-24 13:46 | Diagnostic Imaging Report ---
INDICATION: Chest pain. COMPARISON: 01/23/2017. FINDINGS: A single frontal view of the chest demonstrates normal heart size and pulmonary vascularity. The lungs are well aerated and clear. No large pleural effusion or pneumothorax is seen. The visualized osseous structures show no acute abnormalities. IMPRESSION: No acute cardiopulmonary process. Dictated by: Dictated on workstation # [id number]
[2017-03-24 13:52] LABS: ALANINE AMINOTRANSFERASE 33 U/L (0-55); ALBUMIN 4.8 G/DL (3.2-4.5); ANION GAP 12 MMOL/L (5-14); ASPARTATE AMINO TRANSFERASE 19 U/L (5-34); BILIRUBIN,TOTAL 0.5 MG/DL (0.1-1.0); BLOOD UREA NITROGEN 14 MG/DL (7-18); BUN/CREATININE RATIO 18; CALCIUM 9.9 MG/DL (8.5-10.1); CARBON DIOXIDE 25 MMOL/L (21-32); CHLORIDE 101 MMOL/L (98-107); GFR ESTIMATED > 60; GLUCOSE 153 MG/DL (70-105); MAGNESIUM 2.2 MG/DL (1.8-2.4); SODIUM 138 MMOL/L (135-145)
[2017-03-24 13:55] VITALS: BP 155/99
[2017-03-24 13:59] LABS: MYOGLOBIN SERUM 15.8 NG/ML (10.0-92.0)
[2017-03-24] MEDS ORDERED: CATHETER FLUSH 10 ML SYR IV PRN (14:00)
[2017-03-24] MEDS ORDERED: NS 100 ML (IVPB) BAG IV ONE (14:00)
[2017-03-24] MEDS ORDERED: IOHEXOL 350 MG/ML 150 ML (OMNIPAQUE 350) VIAL IV ONE (14:00)
[2017-03-24] MEDS ORDERED: LISI-556 PO (15:39)
[2017-03-24 15:52] VITALS: BP 108/74
== END 2017-03-24 15:50 | disposition home or self-care (01) ==
LOC: EDUNIT# 13:22 → ER 13:23
DX: R07.9 Chest pain, unspecified (principal); I10 Essential (primary) hypertension; J44.9 Chronic obstructive pulmonary disease, unspecified; E11.9 Type 2 diabetes mellitus 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s; Z79.4 Long term (current) use of insulin; Z79.82 Long term (current) use of aspirin; Z79.899 Other long term (current) drug therapy
CPT/HCPCS: 36415; 71010; 80053; 83735; 83874; 84484; 85025; 85610; 85730; 93005; 93041

== ENCOUNTER 2017-03-28 13:32 | Emergency (ER) | payer MEDICAID ==
[~2017-03-28] VITALS: Ht 157.5 cm; Wt 83.9 kg
[~2017-03-28 13:32] MED LIST changes: +LISI-556 PO
[2017-03-28 15:08] LABS: BASOPHILS % (AUTO) 1 % (0-10); EOSINOPHILS # (AUTO) 0.1 10^3/uL (0.0-0.3); EOSINOPHILS % (AUTO) 1 % (0-10); LYMPHOCYTES # (AUTO) 1.6 X 10^3 (1.0-4.0); LYMPHOCYTES % (AUTO) 22 % (12-44); MEAN CORPUSCULAR HEMOGLOBIN 33 PG (25-34); MEAN CORPUSCULAR HGB CONC 34 G/DL (32-36); MEAN CORPUSCULAR VOLUME 97 FL (80-99); MEAN PLATELET VOLUME 11.1 FL (7.4-10.4); MONOCYTES # (AUTO) 0.4 X 10^3 (0.0-1.0); MONOCYTES % (AUTO) 5 % (0-12); NEUTROPHILS # (AUTO) 5.1 X 10^3 (1.8-7.8); NEUTROPHILS % (AUTO) 71 % (42-75); PLATELET COUNT 263 10^3/uL (130-400); RED BLOOD COUNT 4.33 10^6/uL (4.35-5.85); RED CELL DISTRIBUTION WIDTH 13.2 % (10.0-14.5); WHITE BLOOD COUNT 7.3 10^3/uL (4.3-11.0)
[2017-03-28 15:24] LABS: ALANINE AMINOTRANSFERASE 33 U/L (0-55); ALBUMIN 4.3 G/DL (3.2-4.5); ANION GAP 13 MMOL/L (5-14); ASPARTATE AMINO TRANSFERASE 24 U/L (5-34); BILIRUBIN,TOTAL 0.4 MG/DL (0.1-1.0); BLOOD UREA NITROGEN 13 MG/DL (7-18); BUN/CREATININE RATIO 14; CARBON DIOXIDE 19 MMOL/L (21-32); CHLORIDE 106 MMOL/L (98-107); CREATININE SERUM 0.93 MG/DL (0.60-1.30); GFR ESTIMATED > 60; GLUCOSE 138 MG/DL (70-105); SODIUM 138 MMOL/L (135-145)
--- NOTE | 2017-03-28 16:56 | ED General ---
General Chief Complaint: Respiratory Problems Stated Complaint: SOA Nursing Triage Note: pt c/o soa x 3 days. seen recently for diarrhea. reports she is sweating profusely. Nursing Sepsis Screen: No Definite Risk History of Present Illness Time Seen by Provider: 16:30 Initial Comments The patient is a 46-year-old white female seen previously at this institution on March 12, , and now . She had previously been seen for complaints of diarrhea and then subsequently of chest pain. Today she complains of diffuse sweating. She is not able to give any additional information relative to this. It apparently affects her head and neck he has not been febrile. Allergies and Home Medications Allergies Coded Allergies: Penicillins (Verified Allergy, Unknown, 01/26/17) Home Medications Albuterol Sulfate 1.25 Mg/3 Ml Vial.neb, 1.25 MG IH QID PRN for SHORTNESS OF BREATH, (Reported) Albuterol Sulfate 1 Puff Puff, 2 PUFF IH QID PRN for SHORTNESS OF BREATH, ( Reported) Alprazolam 2 Mg Tablet, 1 MG PO DAILY@1400, (Reported) TAKES 1/2 OF A (2 MG) TABLET Aspirin 81 Mg Tab.chew, 81 MG PO DAILY, (Reported) Atenolol 25 Mg Tablet, 25 MG PO DAILY, (Reported) Atorvastatin Calcium 40 Mg Tablet, 40 MG PO HS, (Reported) Budesonide/Formoterol Fumarate 10.2 Gm Hfa.aer.ad, 2 PUFF IH BID, (Reported) Doxepin HCl 150 Mg Capsule, 150 MG PO HS, (Reported) Eslicarbazepine Acetate 400 Mg Tablet, PO UD, (Reported) HAS NOT STARTED YET / 1 TAB PO EVERY EVENING X 10 DAYS, THEN 2 TABS THEREAFTER. Hydrocodone/Acetaminophen 1 Each Tablet, 1 TAB PO TID, (Reported) Hyoscyamine Sulfate 0.125 Mg Tab.subl, 0.125 MG SL Q6H PRN for CRAMPS, #20 Prescribed by: GALA TALLEY on 03/21/17 1119 Insulin Aspart 300 Units/3 Ml Solution, 40 UNITS SQ TIDWM, (Reported) Insulin Detemir 100 Unit/1 Ml Insuln.pen, 56 UNITS SQ BID, (Reported) Lacosamide 200 Mg Tablet, 200 MG PO BID, (Reported) Levofloxacin 750 Mg Tablet, 750 MG PO DAILY for 7 Days Prescribed by: STIVEN RAYMOND on 01/27/17 1239 Levothyroxine Sodium 150 Mcg Tablet, 150 MCG PO DAILY, (Reported) Lisinopril 5 Mg Tablet, 5 MG PO DAILY, #14 Prescribed by: GALA TALLEY on 03/24/17 1539 Metronidazole 500 Mg Tablet, 500 MG PO TID for 7 Days, #21 FILLED 01/23/17 #21 FOR A 7 DAY THERAPY Prescribed by: STIVEN RAYMOND on 01/27/17 1239 Montelukast Sodium 10 Mg Tablet, 10 MG PO DAILY, (Reported) Olanzapine 10 Mg Tablet, 10 MG PO HS, (Reported) Ondansetron 8 Mg Tab.rapdis, 8 MG PO Q6H PRN for NAUSEA/VOMITING, (Reported) Promethazine HCl 25 Mg Tablet, 25 MG PO Q6H PRN for NAUSEA/VOMITING for 7 Days, #20 Prescribed by: STIVEN RAYMOND on 01/27/17 1239 Ranitidine HCl 150 Mg Tablet, 150 MG PO BID, (Reported) Venlafaxine HCl 75 Mg Cap.er.24h, 75 MG PO DAILY, (Reported) TAKES IN CONJUCTION WITH VENLAFAXINE 150MG FOR A TOTAL DOSE OF 225MG Venlafaxine HCl 150 Mg Cap.er.24h, 150 MG PO DAILY, (Reported) TAKES IN CONJUCTION WITH VENLAFAXINE 75MG FOR A TOTAL DOSE OF 225MG Constitutional: see HPI EENTM: no symptoms reported, other (sweating mostly involving the face) Respiratory: no symptoms reported, other (minimum chest pain remains and only with deep breath) Gastrointestinal: no symptoms reported Genitourinary: no symptoms reported Musculoskeletal: no symptoms reported Skin: no symptoms reported Psychiatric/Neurological: No Symptoms Reported Hematologic/Lymphatic: No Symptoms Reported Immunological/Allergic: no symptoms reported Past Ekasduk-Oxclpl-Rxajpo Hx Patient Social History Alcohol Use: Denies Use Recreational Drug Use: No Smoking Status: Current Someday Smoker Type Used: Cigarettes Recent Foreign Travel: No Contact w/Someone Who Travel: No Recent Infectious Disease Expo: No Recent Hopitalizations: Yes (DIVERTICULITIS) Immunizations Up To Date Tetanus Booster (TDap): Unknown PED Vaccines UTD: No Date of Pneumonia Vaccine: Jul 11, 2014 Date of Influenza Vaccine: Nov 02, 2016 Seasonal Allergies Seasonal Allergies: No Surgeries HX Surgeries: No Surgeries: Adenoidectomy, Appendectomy, Hysterectomy, Tonsillectomy Respiratory Hx Respiratory Disorders: Yes Respiratory Disorders: Chronic Bronchitis, COPD, Emphysema Cardiovascular Hx Cardiac Disorders: Yes Cardiac Disorders: Heart Attack, High Cholesterol, Hypertension Neurological Hx Neurological Disorders: No 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 System Sexually Transmitted Disease: No HIV/AIDS: No Female 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 Disorders: 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 Genitourinary Hx Genitourinary Disorders: No Gastrointestinal Hx Gastrointestinal Disorders: Yes (DIVERTICULITIS ) Gastrointestinal Disorders: Diverticulosis Musculoskeletal Hx Musculoskeletal Disorders: Yes (chronic pain) Musculoskeletal Disorders: Chronic Back Pain Endocrine Hx Endocrine Disorders: Yes Endocrine Disorders: Diabetes, Non-Insulin dep HEENT HX ENT Disorders: No Loss of Vision: Denies Hearing Impairment: Denies Cancer Hx Cancer: No Psychosocial Hx Psychiatric Problems: No Behavioral Health Disorders: Sleep Difficulties, Bipolar Blood Transfusions Adverse Reaction to a Blood Tr: No Family Medical History Significant Family History: No Pertinent Family Hx Family Medial History: FH: cancer 19 MOTHER Myocardial infarction 19 FATHER (48 years old) Physical Exam Vital Signs Vital Sign - Last 12Hours 03/28/17 03/28/17 13:33 15:11 Temp 98.1 Pulse 77 Resp 24 B/P (MAP) 117/99 Pulse Ox 98 O2 Delivery Room Air Capillary Refill : Less Than 3 Seconds General Appearance: Mild Distress, Other Eyes: Bilateral Eye Normal Inspection HEENT: Normal ENT Inspection Neck: Normal Inspection Respiratory: Chest Non Tender Cardiovascular: Regular Rate, Rhythm, No Edema, No Gallop, No JVD, No Murmur, Normal Peripheral Pulses Gastrointestinal: Normal Bowel Sounds, No Organomegaly, No Pulsatile Mass, Non Tender, Soft Back: Normal Inspection, No CVA Tenderness, No Vertebral Tenderness Extremity: Normal Capillary Refill, Normal Inspection, Normal Range of Motion, Non Tender, No Calf Tenderness, No Pedal Edema Neurologic/Psychiatric: Alert, Oriented x3, No Motor/Sensory Deficits, Normal Mood/Affect Skin: Normal Color, Warm/Dry Lymphatic: No Adenopathy Progress/Results/Core Measures Results/Orders Lab Results Laboratory Tests Test 03/28/17 14:01 Range/Units White Blood Count 7.3 4.3-11.0 10^3/uL Red Blood Count 4.33 L 4.35-5.85 10^6/uL Hemoglobin 14.3 11.5-16.0 G/DL Hematocrit 42 35-52 % Mean Corpuscular Volume 97 80-99 FL Mean Corpuscular Hemoglobin 33 25-34 PG Mean Corpuscular Hemoglobin Concent 34 32-36 G/DL Red Cell Distribution Width 13.2 10.0-14.5 % Platelet Count 263 130-400 10^3/uL Mean Platelet Volume 11.1 H 7.4-10.4 FL Neutrophils (%) (Auto) 71 42-75 % Lymphocytes (%) (Auto) 22 12-44 % Monocytes (%) (Auto) 5 0-12 % Eosinophils (%) (Auto) 1 0-10 % Basophils (%) (Auto) 1 0-10 % Neutrophils # (Auto) 5.1 1.8-7.8 X 10^3 Lymphocytes # (Auto) 1.6 1.0-4.0 X 10^3 Monocytes # (Auto) 0.4 0.0-1.0 X 10^3 Eosinophils # (Auto) 0.1 0.0-0.3 10^3/uL Basophils # (Auto) 0.0 0.0-0.1 10^3/uL Sodium Level 138 135-145 MMOL/L Potassium Level 4.0 3.6-5.0 MMOL/L Chloride Level 106 98-107 MMOL/L Carbon Dioxide Level 19 L 21-32 MMOL/L Anion Gap 13 5-14 MMOL/L Blood Urea Nitrogen 13 7-18 MG/DL Creatinine 0.93 0.60-1.30 MG/DL Estimat Glomerular Filtration Rate > 60 BUN/Creatinine Ratio 14 Glucose Level 138 H 70-105 MG/DL Calcium Level 9.0 8.5-10.1 MG/DL Total Bilirubin 0.4 0.1-1.0 MG/DL Aspartate Amino Transf (AST/SGOT) 24 5-34 U/L Alanine Aminotransferase (ALT/SGPT) 33 0-55 U/L Alkaline Phosphatase 75 40-136 U/L Total Protein 7.0 6.4-8.2 G/DL Albumin 4.3 3.2-4.5 G/DL My Orders Orders - TYLER CHUNG MD Cbc With Automated Diff (03/28/17 15:01) Comprehensive Metabolic Panel (03/28/17 15:01) Vital Signs/I&O Vital Sign - Last 12Hours 03/28/17 03/28/17 13:33 15:11 Temp 98.1 98.2 Pulse 77 96 Resp 24 16 B/P (MAP) 117/99 Pulse Ox 98 O2 Delivery Room Air Blood Pressure Mean: 105 Departure Communication Progress Notes 1704 the patient reports a hysterectomy and removal of one ovary and [address] Stewart. Impression Impression: Primary Impression: menopausal sympto Disposition: HOME, SELF-CARE Condition: Stable/Unchanged Departure-Patient Inst. Decision time for Depature: 17:03 Referrals: [facility] [place] ([place]/Family) Primary Care Physician Add. Discharge Instructions: All discharge instructions reviewed with patient and/or family. Voiced understanding. Make appointment to [facility] to discuss menopausal symptoms. It would be reasonable to request seeing one of the lady providers for this purpose TYLER CHUNG MD March 28, 2017 16:56
[2017-03-28 17:13] VITALS: BP 115/87
== END 2017-03-28 17:13 | disposition home or self-care (01) ==
LOC: EDUNIT# 13:32 → ER 13:33
DX: N95.1 Menopausal and female climacteric states (principal); I10 Essential (primary) hypertension; E11.9 Type 2 diabetes mellitus 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s; J44.9 Chronic obstructive pulmonary disease, unspecified; I25.2 Old myocardial infarction; F17.210 Nicotine dependence, cigarettes, uncomplicated; Z79.82 Long term (current) use of aspirin; Z79.899 Other long term (current) drug therapy
CPT/HCPCS: 36415; 80053; 85025

== ENCOUNTER 2017-03-30 19:25 | Emergency (ER) | payer MEDICAID ==
[~2017-03-30] VITALS: Ht 157.5 cm; Wt 84.1 kg
[2017-03-30] MEDS ORDERED: LACTATED RINGERS 1,000 ML IV ONE (19:40)
[2017-03-30] MEDS ORDERED: FAMOTIDINE 20MG/2ML IV (PEPCID) IV STA (19:40)
[2017-03-30] MEDS ORDERED: OLANZapine 5 MG ODT (ZyPREXA ZYDIS) PO ONE (19:45)
[2017-03-30] MEDS ORDERED: diphenhydrAMINE 50 MG/ML INJ (BENADRYL) IVP ONE (19:45)
[2017-03-30] MEDS ORDERED: ONDANSETRON 4 MG/2 ML (SDV) Z0FRAN IVP ONE (19:45)
[2017-03-30 20:25] LABS: BASOPHILS % (AUTO) 0 % (0-10); EOSINOPHILS # (AUTO) 0.1 10^3/uL (0.0-0.3); EOSINOPHILS % (AUTO) 2 % (0-10); LYMPHOCYTES % (AUTO) 26 % (12-44); MEAN CORPUSCULAR HEMOGLOBIN 33 PG (25-34); MEAN CORPUSCULAR HGB CONC 34 G/DL (32-36); MEAN CORPUSCULAR VOLUME 96 FL (80-99); MEAN PLATELET VOLUME 10.6 FL (7.4-10.4); MONOCYTES # (AUTO) 0.5 X 10^3 (0.0-1.0); MONOCYTES % (AUTO) 7 % (0-12); NEUTROPHILS % (AUTO) 65 % (42-75); PLATELET COUNT 259 10^3/uL (130-400); RED BLOOD COUNT 4.23 10^6/uL (4.35-5.85); RED CELL DISTRIBUTION WIDTH 13.2 % (10.0-14.5); WHITE BLOOD COUNT 7.7 10^3/uL (4.3-11.0)
[2017-03-30 20:45] LABS: ALANINE AMINOTRANSFERASE 28 U/L (0-55); ALBUMIN 4.2 G/DL (3.2-4.5); ANION GAP 14 MMOL/L (5-14); ASPARTATE AMINO TRANSFERASE 18 U/L (5-34); BILIRUBIN,TOTAL 0.5 MG/DL (0.1-1.0); BLOOD UREA NITROGEN 13 MG/DL (7-18); BUN/CREATININE RATIO 16; CARBON DIOXIDE 21 MMOL/L (21-32); CHLORIDE 107 MMOL/L (98-107); CREATININE SERUM 0.79 MG/DL (0.60-1.30); GFR ESTIMATED > 60; GLUCOSE 114 MG/DL (70-105); MAGNESIUM 2.1 MG/DL (1.8-2.4); POTASSIUM 3.5 MMOL/L (3.6-5.0); SODIUM 142 MMOL/L (135-145); TOTAL PROTEIN 6.6 G/DL (6.4-8.2)
[2017-03-30 20:46] LABS: ACETAMINOPHEN < 10 UG/ML (10-30); ALCOHOL < 10 MG/DL (<10)
[2017-03-30] MEDS ORDERED: ONDA4TAB8 PO (20:59)
[2017-03-30] MEDS ORDERED: LACT1CAP8 PO (20:59)
--- NOTE | 2017-03-30 20:59 | ED General ---
General Chief Complaint: Psych/Social Disorder Stated Complaint: SOA Nursing Triage Note: PATIENT REPORTS BEING ANXIOUS AND HYPERVENTILATING SINCE SHE WAS HERE 2 DAYS AGO Nursing Sepsis Screen: No Definite Risk Source of Information: Patient (SPEECH RAPID AND ERRATIC, PT DIFFICULT TO KEEP ON SUBJECT, GIVES INCONSISTENT INFORMATION), EMS, Old Records History of Present Illness Time Seen by Provider: 19:35 Initial Comments PT ARRIVES VIA EMS C/O BEING ANXIOUS AND IS HYPERVENTILATING FOR 2 DAYS PT IS ON MULTIPLE PSYCH MEDICATIONS, BUT PT STATES SHE QUIT TAKING THEM--CANNOT STATE WHEN SHE QUIT TAKING THEM, GIVES MULTIPLE DIFFERENT ANSWERS TO HOW LONG AGO SHE QUIT TAKING THEM. PT HAS BOTTLES THAT WERE FILLED ON 03/05/17 PT STATES "NONE OF THEM WORK" PT STATES "I DON'T KNOW WHAT SHE GIVES THEM TO ME FOR" --THEN ALSO STATES SHE HASN'T BEEN TAKING THEM BECAUSE SHE THROWS THEM UP PT STATES SHE HAS VOMITED X 4, AND HAD DIARRHEA "23 TIMES" TODAY PT HAS HAD REPORTED GI PROBLEMS OF VOMITING AND DIARRHEA "20 OR MORE" TIMES A DAY PT WAS SEEN IN ER 2 DAYS AGO FOR GI SYMPTOMS AND STATES "I'VE BEEN MESSED UP EVER SINCE THEY GAVE ME FENTANYL" THEN ALSO STATES "IT'S THE DYE THEY GAVE ME" - -IS COMPLETELY FIXATED ON THESE THINGS STATES HER FACE HAS BEEN FLUSHED AND HOT EVER SINCE PT STATES SHE HAS NOT TAKEN ANY MEDICATIONS OF ANY KIND TODAY UNABLE TO GET ANY OTHER RELEVANT INFORMATION FROM PT PT WAS SEEN HERE JANUARY 23 AND DX WITH DIVERTICULITIS ADMITTED 01/26-01/27 FOR DIVERTICULITIS IN ER 03/21 FOR FREQUENT BLOODY STOOLS SEEN AGAIN 03/24 FOR CHEST PAIN CAME BACK 03/28 FOR ANXIETY AND SWEATING AND DX WITH MENOPAUSAL SYMPTOMS PT HAS NOT FOLLOWED UP WITH ANYONE AFTER THESE RECENT VISITS PCP:LÓPEZ-K Allergies and Home Medications Allergies Coded Allergies: Penicillins (Verified Allergy, Unknown, 01/26/17) Home Medications Albuterol Sulfate 1.25 Mg/3 Ml Vial.neb, 1.25 MG IH QID PRN for SHORTNESS OF BREATH, (Reported) Albuterol Sulfate 1 Puff Puff, 2 PUFF IH QID PRN for SHORTNESS OF BREATH, ( Reported) Alprazolam 2 Mg Tablet, 1 MG PO DAILY@1400, (Reported) TAKES 1/2 OF A (2 MG) TABLET Aspirin 81 Mg Tab.chew, 81 MG PO DAILY, (Reported) Atenolol 25 Mg Tablet, 25 MG PO DAILY, (Reported) Atorvastatin Calcium 40 Mg Tablet, 40 MG PO HS, (Reported) Budesonide/Formoterol Fumarate 10.2 Gm Hfa.aer.ad, 2 PUFF IH BID, (Reported) Doxepin HCl 150 Mg Capsule, 150 MG PO HS, (Reported) Eslicarbazepine Acetate 400 Mg Tablet, PO UD, (Reported) HAS NOT STARTED YET / 1 TAB PO EVERY EVENING X 10 DAYS, THEN 2 TABS THEREAFTER. Hydrocodone/Acetaminophen 1 Each Tablet, 1 TAB PO TID, (Reported) Hyoscyamine Sulfate 0.125 Mg Tab.subl, 0.125 MG SL Q6H PRN for CRAMPS, #20 Prescribed by: GALA TALLEY on 03/21/17 1119 Insulin Aspart 300 Units/3 Ml Solution, 40 UNITS SQ TIDWM, (Reported) Insulin Detemir 100 Unit/1 Ml Insuln.pen, 56 UNITS SQ BID, (Reported) Lacosamide 200 Mg Tablet, 200 MG PO BID, (Reported) Lactobacillus Acidophilus 1 Each Capsule, 2 EACH PO QID, #80 Prescribed by: JOSSELIN QUINONEZ on 03/30/172058 Levofloxacin 750 Mg Tablet, 750 MG PO DAILY for 7 Days Prescribed by: STIVEN RAYMOND on 01/27/17 1239 Levothyroxine Sodium 150 Mcg Tablet, 150 MCG PO DAILY, (Reported) Lisinopril 5 Mg Tablet, 5 MG PO DAILY, #14 Prescribed by: GALA TALLEY on 03/24/17 1539 Metronidazole 500 Mg Tablet, 500 MG PO TID for 7 Days, #21 FILLED 01/23/17 #21 FOR A 7 DAY THERAPY Prescribed by: STIVEN RAYMOND on 01/27/17 1239 Montelukast Sodium 10 Mg Tablet, 10 MG PO DAILY, (Reported) Olanzapine 10 Mg Tablet, 10 MG PO HS, (Reported) Ondansetron 8 Mg Tab.rapdis, 8 MG PO Q6H PRN for NAUSEA/VOMITING, (Reported) Ondansetron 4 Mg Tab.rapdis, 4 MG PO Q4H, #10 Prescribed by: JOSSELIN QUINONEZ on 03/30/172058 Promethazine HCl 25 Mg Tablet, 25 MG PO Q6H PRN for NAUSEA/VOMITING for 7 Days, #20 Prescribed by: STIVEN RAYMOND on 01/27/17 1239 Ranitidine HCl 150 Mg Tablet, 150 MG PO BID, (Reported) Venlafaxine HCl 75 Mg Cap.er.24h, 75 MG PO DAILY, (Reported) TAKES IN CONJUCTION WITH VENLAFAXINE 150MG FOR A TOTAL DOSE OF 225MG Venlafaxine HCl 150 Mg Cap.er.24h, 150 MG PO DAILY, (Reported) TAKES IN CONJUCTION WITH VENLAFAXINE 75MG FOR A TOTAL DOSE OF 225MG Constitutional: see HPI Respiratory: see HPI (HYPERVENTILATION) Cardiovascular: No chest pain Gastrointestinal: see HPI, diarrhea, nausea, vomiting Psychiatric/Neurological: Anxiety Past Endfcjv-Zgessz-Bhwwhc Hx Patient Social History Alcohol Use: Denies Use Recreational Drug Use: No Smoking Status: Current Everyday Smoker (1/2 PPD) Type Used: Cigarettes Recent Foreign Travel: No Contact w/Someone Who Travel: No Recent Infectious Disease Expo: No Recent Hopitalizations: Yes (DIVERTICULITIS) Immunizations Up To Date Tetanus Booster (TDap): Unknown PED Vaccines UTD: No Date of Pneumonia Vaccine: Jul 11, 2014 Date of Influenza Vaccine: Nov 02, 2016 Seasonal Allergies Seasonal Allergies: No Surgeries HX Surgeries: Yes Surgeries: Adenoidectomy, Appendectomy, Hysterectomy, Tonsillectomy Respiratory Hx Respiratory Disorders: Yes Respiratory Disorders: Chronic Bronchitis, COPD, Emphysema Cardiovascular Hx Cardiac Disorders: Yes Cardiac Disorders: Heart Attack, High Cholesterol, Hypertension Neurological Hx Neurological Disorders: No 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 System Sexually Transmitted Disease: No HIV/AIDS: No Female 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 Disorders: Denies 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 Genitourinary Hx Genitourinary Disorders: No Gastrointestinal Hx Gastrointestinal Disorders: Yes (DIVERTICULITIS ) Gastrointestinal Disorders: Diverticulosis Musculoskeletal Hx Musculoskeletal Disorders: Yes (chronic pain) Musculoskeletal Disorders: Chronic Back Pain Endocrine Hx Endocrine Disorders: Yes Endocrine Disorders: Diabetes, Non-Insulin dep HEENT HX ENT Disorders: No Loss of Vision: Denies Hearing Impairment: Denies Cancer Hx Cancer: No Psychosocial Hx Psychiatric Problems: Yes Behavioral Health Disorders: Sleep Difficulties, Bipolar Blood Transfusions Adverse Reaction to a Blood Tr: No Family Medical History Significant Family History: No Pertinent Family Hx Family Medial History: FH: cancer 19 MOTHER Myocardial infarction 19 FATHER (48 years old) Physical Exam Vital Signs Vital Sign - Last 12Hours 03/30/17 19:29 Temp 96.8 Pulse 70 Resp 36 B/P (MAP) 108/91 Pulse Ox 98 Capillary Refill : Less Than 3 Seconds General Appearance: Other (EXTREMELY ANXIOUS, HYPERVENTILATING, NEARLY HYSTERICAL AND APPEARS MANIC. TALKS RAPIDLY NON-STOP, DIFFICULT TO KEEP ON SUBJECT. ) HEENT: PERRL/EOMI, Other (POOR DENTITION) Neck: Normal Inspection Respiratory: Normal Breath Sounds, No Accessory Muscle Use, No Respiratory Distress, Other (HYPER VENTILATING) Cardiovascular: Regular Rate, Rhythm, No Edema, No Murmur Extremity: Normal Range of Motion, Non Tender, No Pedal Edema Neurologic/Psychiatric: Alert, Oriented x3, No Motor/Sensory Deficits, hurricane tracker II- XII Norm as Tested Skin: Normal Color, Warm/Dry, Tattoos/Piercings (EXTENSIVE TATTOOS) Progress/Results/Core Measures Results/Orders Lab Results Laboratory Tests Test 03/30/17 19:51 03/30/17 20:10 Range/Units Urine Opiates Screen NEGATIVE NEGATIVE Urine Oxycodone Screen NEGATIVE NEGATIVE Urine Methadone Screen NEGATIVE NEGATIVE Urine Propoxyphene Screen NEGATIVE NEGATIVE Urine Barbiturates Screen NEGATIVE NEGATIVE Ur Tricyclic Antidepressants Screen NEGATIVE NEGATIVE Urine Phencyclidine Screen NEGATIVE NEGATIVE Urine Amphetamines Screen NEGATIVE NEGATIVE Urine Methamphetamines Screen NEGATIVE NEGATIVE Urine Benzodiazepines Screen NEGATIVE NEGATIVE Urine Cocaine Screen NEGATIVE NEGATIVE Urine Cannabinoids Screen NEGATIVE NEGATIVE White Blood Count 7.7 4.3-11.0 10^3/uL Red Blood Count 4.23 L 4.35-5.85 10^6/uL Hemoglobin 13.8 11.5-16.0 G/DL Hematocrit 41 35-52 % Mean Corpuscular Volume 96 80-99 FL Mean Corpuscular Hemoglobin 33 25-34 PG Mean Corpuscular Hemoglobin Concent 34 32-36 G/DL Red Cell Distribution Width 13.2 10.0-14.5 % Platelet Count 259 130-400 10^3/uL Mean Platelet Volume 10.6 H 7.4-10.4 FL Neutrophils (%) (Auto) 65 42-75 % Lymphocytes (%) (Auto) 26 12-44 % Monocytes (%) (Auto) 7 0-12 % Eosinophils (%) (Auto) 2 0-10 % Basophils (%) (Auto) 0 0-10 % Neutrophils # (Auto) 5.0 1.8-7.8 X 10^3 Lymphocytes # (Auto) 2.0 1.0-4.0 X 10^3 Monocytes # (Auto) 0.5 0.0-1.0 X 10^3 Eosinophils # (Auto) 0.1 0.0-0.3 10^3/uL Basophils # (Auto) 0.0 0.0-0.1 10^3/uL Sodium Level 142 135-145 MMOL/L Potassium Level 3.5 L 3.6-5.0 MMOL/L Chloride Level 107 98-107 MMOL/L Carbon Dioxide Level 21 21-32 MMOL/L Anion Gap 14 5-14 MMOL/L Blood Urea Nitrogen 13 7-18 MG/DL Creatinine 0.79 0.60-1.30 MG/DL Estimat Glomerular Filtration Rate > 60 BUN/Creatinine Ratio 16 Glucose Level 114 H 70-105 MG/DL Calcium Level 9.0 8.5-10.1 MG/DL Magnesium Level 2.1 1.8-2.4 MG/DL Total Bilirubin 0.5 0.1-1.0 MG/DL Aspartate Amino Transf (AST/SGOT) 18 5-34 U/L Alanine Aminotransferase (ALT/SGPT) 28 0-55 U/L Alkaline Phosphatase 61 40-136 U/L Total Protein 6.6 6.4-8.2 G/DL Albumin 4.2 3.2-4.5 G/DL TSH [place] Testing 4.30 0.35-4.94 UIU/ML Serum Test, Qualitative NEGATIVE NEGATIVE Acetaminophen Level < 10 L 10-30 UG/ML Serum Alcohol < 10 <10 MG/DL My Orders Orders - JOSSELIN QUINONEZ K DO Diphenhydramine Injection (Benadryl Inje (03/30/17 19:45) Olanzapine Orally Dissolve Tab (Zyprexa (03/30/17 19:45) Saline Lock/Iv-Start (03/30/17 19:40) Monitor-Rhythm Ecg Trace Only (03/30/17 19:40) Acetaminophen (03/30/17 19:40) Alcohol (03/30/17 19:40) Cbc With Automated Diff (03/30/17 19:40) Comprehensive Metabolic Panel (03/30/17 19:40) Drug Screen Stat (Urine) (03/30/17 19:40) Hcg,Qualitative Serum (03/30/17 19:40) Magnesium (03/30/17 19:40) Thyroid Analyzer (03/30/17 19:40) Saline Lock/Iv-Start (03/30/17 19:40) Lactated Ringers (Lr 1000 Ml Iv Solution (03/30/17 19:40) Ondansetron Injection (Zofran Injectio (03/30/17 19:45) Famotidine Injection (Pepcid Injection) (03/30/17 19:40) Medications Given in ED Current Medications Medications Dose Ordered Sig/Peterson Route Start Time Stop Time Status Last Admin Dose Admin Diphenhydramine HCl 75 mg ONCE ONCE IVP 03/30/17 19:45 03/30/17 19:46 DC 03/30/17 19:53 75 MG Lactated Ringer's 1,000 ml @ 0 mls/hr Q0M ONCE IV 03/30/17 19:40 03/30/17 19:43 DC 03/30/17 19:54 0 MLS/HR Olanzapine 5 mg ONCE ONCE PO 03/30/17 19:45 03/30/17 19:46 DC 03/30/17 20:09 5 MG Ondansetron HCl 4 mg ONCE ONCE IVP 03/30/17 19:45 03/30/17 19:46 DC 03/30/17 19:53 4 MG Vital Signs/I&O Vital Sign - Last 12Hours 03/30/17 03/30/17 19:29 21:16 Temp 96.8 Pulse 70 72 Resp 36 18 B/P (MAP) 108/91 Pulse Ox 98 98 Blood Pressure Mean: 97 Progress Note : Progress Note PT UP TO BATHROOM X 2 BUT NO DIARRHEA DURING ENTIRE ER STAY PT IS MUCH CALMER AND ABLE TO COMPLETE SENTENCES, AND SPEECH IS NO LONGER ERRATIC. PT IS NO LONGER HYPERVENTILATING. Departure Impression Impression: Primary Impression: ANXIETY WITH HYPERVENTILATION Additional Impression: REPORTED DIARRHEA Disposition: 01 HOME, SELF-CARE Condition: Improved Departure-Patient Inst. Referrals: [facility] (PCP/Family) Primary Care Physician Patient Instructions: Diarrhea in Adolescents and Adults, Generalized Anxiety Disorder (DC), Hyperventilation Add. Discharge Instructions: CLEAR LIQUIDS--WATER, BROTH, JELLO, GATORADE BRATS DIET--BANANAS, RICE, APPLESAUCE, TOAST, SALTINES FOLLOW UP WITH [facility] IN 1-2 DAYS FOR FURTHER CARE RESTART ALL OF YOUR MEDICATIONS AND TAKE DIRECTED All discharge instructions reviewed with patient and/or family. Voiced understanding. Scripts Ondansetron (Zofran Odt) 4 Mg Tab.rapdis 4 MG PO Q4H for Nausea/Vomiting, #10 TAB Prov: JOSSELIN QUINONEZ DO 03/30/17 Lactobacillus Acidophilus (Acidophilus) 1 Each Capsule 2 EACH PO QID, #80 CAP Prov: JOSSELIN QUINONEZ DO 03/30/17 JOSSELIN QUINONEZ DO March 30, 2017 20:59
[2017-03-30 21:16] VITALS: BP 129/70
== END 2017-03-30 21:15 | disposition home or self-care (01) ==
LOC: EDUNIT# 19:25 → ER 19:26
DX: F41.9 Anxiety disorder, unspecified (principal); R06.4 Hyperventilation; R19.7 Diarrhea, unspecified; I10 Essential (primary) hypertension; J44.9 Chronic obstructive pulmonary disease, unspecified; E11.9 Type 2 diabetes mellitus 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s; F17.210 Nicotine dependence, cigarettes, uncomplicated; Z79.4 Long term (current) use of insulin; Z79.82 Long term (current) use of aspirin
CPT/HCPCS: 36415; 80053; 80306; 80320; 80329; 83735; 84443; 84703; 85025

== ENCOUNTER 2018-01-24 18:01 | Emergency (ER) | payer MEDICAID ==
[~2018-01-24] VITALS: Ht 157.5 cm; Wt 75.7 kg
[~2018-01-24 18:01] MED LIST changes: +ACHD5005; -HYDR-3812; +LACT1CAP8 PO; -OLAN2.5T19; +OLAN2.5T27; +ONDA4TAB8 PO
[2018-01-24] MEDS ORDERED: INSU100V5 (19:15)
[2018-01-24] MEDS ORDERED: OXYB10TA (19:15)
[2018-01-24] MEDS ORDERED: FAMO20TA5 (19:15)
--- NOTE | 2018-01-24 19:36 | ED GI ---
General Chief Complaint: Abdominal/GI Problems Stated Complaint: DIAHRREA,VOMITING Nursing Triage Note: nausea, diarrhea Sepsis Screen: No Definite Risk Source of Information: Patient, Family Exam Limitations: No Limitations History of Present Illness Date Seen by Provider: Jan 24, 2018 Time Seen by Provider: 19:36 Allergies and Home Medications Allergies Coded Allergies: Penicillins (Verified Allergy, Unknown, 01/26/17) Home Medications Albuterol Sulfate 1.25 Mg/3 Ml Vial.neb, 1.25 MG IH QID PRN for SHORTNESS OF BREATH, (Reported) Albuterol Sulfate 1 Puff Puff, 2 PUFF IH QID PRN for SHORTNESS OF BREATH, ( Reported) Alprazolam 2 Mg Tablet, 1 MG PO DAILY@1400, (Reported) TAKES 1/2 OF A (2 MG) TABLET Aspirin 81 Mg Tab.chew, 81 MG PO DAILY, (Reported) Atenolol 25 Mg Tablet, 25 MG PO DAILY, (Reported) Atorvastatin Calcium 40 Mg Tablet, 40 MG PO HS, (Reported) Budesonide/Formoterol Fumarate 10.2 Gm Hfa.aer.ad, 2 PUFF IH BID, (Reported) Hydrocodone/Acetaminophen 1 Each Tablet, 1 TAB PO TID, (Reported) Insulin Aspart 300 Units/3 Ml Solution, 40 UNITS SQ TIDWM, (Reported) Levothyroxine Sodium 150 Mcg Tablet, 150 MCG PO DAILY, (Reported) Montelukast Sodium 10 Mg Tablet, 10 MG PO DAILY, (Reported) Past Uixpgje-Kvysxk-Ukelok Hx Patient Social History Alcohol Use: Denies Use Recreational Drug Use: No Smoking Status: Current Everyday Smoker Type Used: Cigarettes 2nd Hand Smoke Exposure: Yes Recent Foreign Travel: No Contact w/Someone Who Travel: No Recent Infectious Disease Expo: No Recent Hopitalizations: No Immunizations Up To Date Tetanus Booster (TDap): Unknown PED Vaccines UTD: No Date of Pneumonia Vaccine: Jul 11, 2014 Date of Influenza Vaccine: Nov 02, 2016 Seasonal Allergies Seasonal Allergies: No Surgeries History of Surgeries: Yes Surgeries: Adenoidectomy, Appendectomy, Hysterectomy, Tonsillectomy Respiratory History of Respiratory Disorde: Yes Respiratory Disorders: Chronic Bronchitis, COPD, Emphysema Currently Using CPAP: No Currently Using BIPAP: No Cardiovascular History of Cardiac Disorders: No Cardiac Disorders: Heart Attack, High Cholesterol, Hypertension Neurological History of Neurological Disord: No 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 System : No Sexually Transmitted Disease: No HIV/AIDS: No Female 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 Disorders: Denies 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 Genitourinary History of Genitourinary Disor: No Gastrointestinal History of Gastrointestinal Di: Yes Gastrointestinal Disorders: Diverticulosis Musculoskeletal History of Musculoskeletal Dis: Yes (chronic pain) Musculoskeletal Disorders: Chronic Back Pain Endocrine History of Endocrine Disorders: Yes Endocrine Disorders: Hypothyroidsim, Diabetes, Non-Insulin dep HEENT History of HEENT Disorders: No Loss of Vision: Denies Hearing Impairment: Denies Cancer History of Cancer: No Did You Recieve Any Treatments: No Psychosocial History of Psychiatric Problem: Yes Behavioral Health Disorders: Sleep Difficulties, Bipolar Integumentary History of Skin or Integumenta: No Blood Transfusions History of Blood Disorders: No Adverse Reaction to a Blood Tr: No Family Medical History Significant Family History: No Pertinent Family Hx Family Medial History: FH: cancer 19 MOTHER Myocardial infarction 19 FATHER (48 years old) Physical Exam Vital Signs VS - Last 72 Hours, by Label 01/24/18 19:00 Temp 98.1 Pulse 79 Resp 16 B/P (MAP) 115/82 (93) Pulse Ox 97 O2 Delivery Room Air Capillary Refill : Less Than 3 Seconds Progress/Results/Core Measures Results/Orders Lab Results Laboratory Tests Test 01/24/18 19:05 01/24/18 20:05 Range/Units Urine Color YELLOW Urine Clarity VERY CLOUDY H Urine pH 6 5-9 Urine Specific [place] 1.025 H 1.016-1.022 Urine Protein 1+ H NEGATIVE Urine Glucose (UA) 2+ H NEGATIVE Urine Ketones NEGATIVE NEGATIVE Urine Nitrite NEGATIVE NEGATIVE Urine Bilirubin NEGATIVE NEGATIVE Urine Urobilinogen 1 NORMAL MG/DL Urine Leukocyte Esterase 1+ H NEGATIVE Urine RBC (Auto) 1+ H NEGATIVE Urine RBC 2-5 H /HPF Urine WBC 5-10 H /HPF Urine Squamous Epithelial Cells 10-25 H /HPF Urine Crystals NONE /LPF Urine Bacteria LARGE H /HPF Urine Casts NONE /LPF Urine Mucus LARGE H /LPF Urine Culture Indicated YES White Blood Count 3.8 L 4.3-11.0 10^3/uL Red Blood Count 4.37 4.35-5.85 10^6/uL Hemoglobin 14.9 11.5-16.0 G/DL Hematocrit 42 35-52 % Mean Corpuscular Volume 96 80-99 FL Mean Corpuscular Hemoglobin 34 25-34 PG Mean Corpuscular Hemoglobin Concent 36 32-36 G/DL Red Cell Distribution Width 12.4 10.0-14.5 % Platelet Count 235 130-400 10^3/uL Mean Platelet Volume 9.9 7.4-10.4 FL Neutrophils (%) (Auto) 55 42-75 % Lymphocytes (%) (Auto) 26 12-44 % Monocytes (%) (Auto) 15 H 0-12 % Eosinophils (%) (Auto) 3 0-10 % Basophils (%) (Auto) 1 0-10 % Neutrophils # (Auto) 2.1 1.8-7.8 X 10^3 Lymphocytes # (Auto) 1.0 1.0-4.0 X 10^3 Monocytes # (Auto) 0.6 0.0-1.0 X 10^3 Eosinophils # (Auto) 0.1 0.0-0.3 10^3/uL Basophils # (Auto) 0.0 0.0-0.1 10^3/uL Sodium Level 140 135-145 MMOL/L Potassium Level 4.0 3.6-5.0 MMOL/L Chloride Level 105 98-107 MMOL/L Carbon Dioxide Level 26 21-32 MMOL/L Anion Gap 9 5-14 MMOL/L Blood Urea Nitrogen 14 7-18 MG/DL Creatinine 0.74 0.60-1.30 MG/DL Estimat Glomerular Filtration Rate > 60 BUN/Creatinine Ratio 19 Glucose Level 174 H 70-105 MG/DL Calcium Level 9.0 8.5-10.1 MG/DL Total Bilirubin 0.4 0.1-1.0 MG/DL Aspartate Amino Transf (AST/SGOT) 22 5-34 U/L Alanine Aminotransferase (ALT/SGPT) 28 0-55 U/L Alkaline Phosphatase 88 40-136 U/L C-Reactive Protein High Sensitivity 3.29 H 0.00-0.50 MG/DL Total Protein 6.5 6.4-8.2 GM/DL Albumin 4.0 3.2-4.5 GM/DL Lipase 18 8-78 U/L Micro Results Microbiology 01/24/18 Influenza Types A,B Antigen (BRITTNEY) - Final, Complete My Orders Orders - JACKY ALCARAZ Cbc With Automated Diff (01/24/18 19:50) Comprehensive Metabolic Panel (01/24/18 19:50) Hs C Reactive Protein (3/25/18 19:50) Lipase (01/24/18 19:50) Ua Culture If Indicated (01/24/18 19:50) Influenza A And B Antigens (01/24/18 19:50) Chest Pa/Lat (2 View) (01/24/18 19:50) Albuterol/Ipra Inhalation Soln (Duoneb I (01/24/18 20:00) Svn Sm Volume Nebulizer Rt-Rfs (01/24/18 19:50) Acetaminophen Tablet (Tylenol Tablet) (01/24/18 19:50) Ondansetron Oral Dissolve Tab (Zofran (01/24/18 19:50) Hyoscyamine Sl Tablet (Levsin Sl Tablet) (01/24/18 20:00) Urine Culture (01/24/18 19:05) Medications Given in ED Current Medications Medications Dose Ordered Sig/Peterson Route Start Time Stop Time Status Last Admin Dose Admin Albuterol/ Ipratropium 3 ml ONCE ONCE INH 01/24/18 20:00 01/24/18 20:01 DC 01/24/18 20:00 3 ML Hyoscyamine Sulfate 0.125 mg ONCE ONCE SL 01/24/18 20:00 01/24/18 20:01 DC 01/24/18 20:01 0.125 MG Vital Signs/I&O Vital Sign - Last 12Hours 01/24/18 19:00 Temp 98.1 Pulse 79 Resp 16 B/P (MAP) 115/82 (93) Pulse Ox 97 O2 Delivery Room Air Blood Pressure Mean: 93 Departure Impression Impression: Primary Impression: Influenza-like symptoms Additional Impressions: Nausea, vomiting, and diarrhea Urinary tract infection Disposition: 01 HOME, SELF-CARE Condition: Improved Departure-Patient Inst. Decision time for Depature: 21:06 Referrals: NO,LOCAL PHYSICIAN (PCP) Primary Care Physician [facility] (Family) Primary Care Physician Patient Instructions: Flu, Adult (DC), Urinary Tract Infection, Adult (DC), Viral Gastroenteritis, Adult (DC) Add. Discharge Instructions: All discharge instructions reviewed with patient and/or family. Voiced understanding. Medications as instructed. Imodium yyob-jyb-gvcnhna as directed for diarrhea. Drink plenty of fluids. Tylenol Extra Strength over-the -counter as directed for pain or headache. Ibuprofen 800 mg by mouth every 8 hours as needed for pain or fever. Clear liquid diet until symptoms improve, then increase diet slowly to a low-fat, bland diet. Follow-up with your primary care provider for recheck as an outpatient. Return to the emergency department for worsened symptoms or any other concerns. Scripts Nitrofurantoin Monohyd/M-Cryst (Macrobid 100 mg Capsule) 100 Mg Capsule 1 TAB PO BID, #14 CAP 0 Refills Prov: JACKY ALCARAZ 01/24/18 Ondansetron (Ondansetron Odt) 8 Mg Tab.rapdis 8 MG PO Q6H Y for NAUSEA/VOMITING-1ST LINE, #10 TAB 0 Refills Prov: JACKY ALCARAZ 01/24/18 JACKY ALCARAZ Jan 24, 2018 19:36
[2018-01-24] MEDS ORDERED: ONDANSETRON 4 MG (ZOFRAN) ORAL DISSOLVE TAB SL STA (19:50)
[2018-01-24] MEDS ORDERED: ACETAMINOPHEN 500 MG TAB (TYLENOL) PO STA (19:50)
[2018-01-24 19:55] LABS: BILIRUBIN,URINE NEGATIVE (NEGATIVE); CLARITY,URINE VERY CLOUDY; COLOR,URINE YELLOW; GLUCOSE, URINE (UA) 2+ (NEGATIVE); KETONES,URINE NEGATIVE (NEGATIVE); LEUKOCYTE ESTERASE ,URINE 1+ (NEGATIVE); NITRITE,URINE NEGATIVE (NEGATIVE); PH,URINE 6 (5-9); PROTEIN,URINE 1+ (NEGATIVE); UROBILINOGEN,URINE 1 MG/DL (NORMAL)
[2018-01-24] MEDS ORDERED: HYOSCYAMINE 0.125 MG (LEVSIN) TAB SL ONE (20:00)
[2018-01-24] MEDS ORDERED: RT-ALBUTEROL/IPRATROPIUM 3 ML (DUONEB) VIAL INH ONE (20:00)
[2018-01-24 20:14] LABS: BASOPHILS % (AUTO) 1 % (0-10); EOSINOPHILS # (AUTO) 0.1 10^3/uL (0.0-0.3); EOSINOPHILS % (AUTO) 3 % (0-10); HEMATOCRIT 42 % (35-52); HEMOGLOBIN 14.9 G/DL (11.5-16.0); LYMPHOCYTES % (AUTO) 26 % (12-44); MEAN CORPUSCULAR HEMOGLOBIN 34 PG (25-34); MEAN CORPUSCULAR HGB CONC 36 G/DL (32-36); MEAN CORPUSCULAR VOLUME 96 FL (80-99); MEAN PLATELET VOLUME 9.9 FL (7.4-10.4); MONOCYTES # (AUTO) 0.6 X 10^3 (0.0-1.0); MONOCYTES % (AUTO) 15 % (0-12); NEUTROPHILS # (AUTO) 2.1 X 10^3 (1.8-7.8); NEUTROPHILS % (AUTO) 55 % (42-75); PLATELET COUNT 235 10^3/uL (130-400); RED BLOOD COUNT 4.37 10^6/uL (4.35-5.85); RED CELL DISTRIBUTION WIDTH 12.4 % (10.0-14.5); WHITE BLOOD COUNT 3.8 10^3/uL (4.3-11.0)
[2018-01-24 20:28] LABS: BACTERIA,URINE LARGE /HPF
--- NOTE | 2018-01-24 20:45 | Diagnostic Imaging Report ---
INDICATION: Cough and congestion with shortness of breath. COMPARISON: Prior examination from 03/24/2017. EXAMINATION: PA and lateral views of the chest were obtained. FINDINGS: The heart size, mediastinal configuration, and pulmonary vascularity are within normal limits. There is no pleural effusion, pneumothorax, or pneumonia. The osseous structures are unremarkable. IMPRESSION: No acute cardiopulmonary abnormality. Dictated by: Dictated on workstation # [id number]
[2018-01-24 20:47] LABS: ALANINE AMINOTRANSFERASE 28 U/L (0-55); ALKALINE PHOSPHATASE 88 U/L (40-136); BILIRUBIN,TOTAL 0.4 MG/DL (0.1-1.0); BUN/CREATININE RATIO 19; CARBON DIOXIDE 26 MMOL/L (21-32); CHLORIDE 105 MMOL/L (98-107); CREATININE SERUM 0.74 MG/DL (0.60-1.30); GFR ESTIMATED > 60; GLUCOSE 174 MG/DL (70-105); LIPASE 18 U/L (8-78); SODIUM 140 MMOL/L (135-145); TOTAL PROTEIN 6.5 GM/DL (6.4-8.2)
[2018-01-24] MEDS ORDERED: NITR-65 PO (21:12)
[2018-01-24] MEDS ORDERED: ONDA8TAB13 PO (21:12)
[2018-01-24] MEDS ORDERED: RX-NITROFURANTOIN 100 MG (MACROBID) CAP PPK#2 PO STA (21:14)
[2018-01-24] MEDS ORDERED: IBUPROFEN 800 MG (MOTRIN) TAB PO STA (21:14)
[2018-01-24] MEDS ORDERED: RX-ONDANSETRON 4 MG ODT (ZOFRAN) PPK #4 PO STA (21:14)
[2018-01-24] MEDS ORDERED: NITROFURANTOIN 100 MG (MACROBID) CAPSULE PO ONE (21:22)
[2018-01-24 21:29] VITALS: BP 112/78
== END 2018-01-24 21:28 | disposition home or self-care (01) ==
LOC: EDUNIT# 18:01 → ER 18:04
DX: J11.1 Influenza due to unidentified influenza virus with other respiratory manifestations (principal); N39.0 Urinary tract infection, site not specified; R11.2 Nausea with vomiting, unspecified; R19.7 Diarrhea, unspecified; F31.9 Bipolar disorder, unspecified; G47.9 Sleep disorder, unspecified; E03.9 Hypothyroidism, unspecified; E11.9 Type 2 diabetes mellitus 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s; I25.2 Old myocardial infarction; E78.00 Pure hypercholesterolemia, unspecified; J43.9 Emphysema, unspecified; F17.210 Nicotine dependence, cigarettes, uncomplicated; Z90.49 Acquired absence of other specified parts of digestive tract; Z90.89 Acquired absence of other organs; Z90.710 Acquired absence of both cervix and uterus; Z79.4 Long term (current) use of insulin; Z79.82 Long term (current) use of aspirin; Z88.0 Allergy status to penicillin
CPT/HCPCS: 36415; 71046; 80053; 81000; 83690; 85025; 86141; 87088; 87804

== ENCOUNTER 2018-01-28 05:35 | Outpatient (CLI) | payer MEDICAID ==
[~2018-01-28] VITALS: Ht 157.5 cm; Wt 75.7 kg
[~2018-01-28 05:35] MED LIST changes: +FAMO20TA5 PO; +INSU100V5 SQ; +NITR-65 PO; +OXYB10TA PO
[2018-01-28] MEDS ORDERED: ATEN50TA PO (12:21)
== END 2018-01-28 12:23 ==
LOC: PREOP 05:35
PROVIDERS: ATTEND Surgery
DX: Z01.818 Encounter for other preprocedural examination (principal); Z12.11 Encounter for screening for malignant neoplasm of colon; K21.9 Gastro-esophageal reflux disease without esophagitis

== ENCOUNTER 2018-02-02 12:27 | Day surgery (SDC) | payer MEDICAID ==
[~2018-02-02] VITALS: Ht 157.5 cm; Wt 75.7 kg
[~2018-02-02 12:27] MED LIST changes: +ATEN50TA PO
--- OUTSIDE RECORDS SUMMARY | 2018-02-02 12:32 | XMS REPORT ---
Author Author GERARDO KISER [facility] Address [address] [place] [address] Care Team Providers Care Asset Availability Leader Name Role Phone GERARDO KISER Unavailable PROBLEMS Type Condition ICD9-CM Code [id number] Code Onset Dates Condition Status SNOMED Code Problem History of high cholesterol Z86.39 Active 573235522 Problem History of seizures Z87.898 Active 134670041 Problem History of [place] (myocardial infarction) I25.2 Active 935024282 Problem Bipolar 2 disorder F31.81 Active 47763189 Problem History of hypothyroidism Z86.39 Active 436312120 Problem History of hypertension Z86.79 Active 021889711 Problem Chronic post-traumatic stress disorder (PTSD) F43.12 Active 014349052 Problem Panic disorder with agoraphobia F40.01 Active 90810489 Problem long term acute care registered nurse 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 Active 112186366 Problem Epilepsy G40.909 Active 39862024 Problem Type 2 diabetes mellitus with hyperglycemia E11.65 Active 459873731 Problem Uncontrolled type 2 diabetes mellitus 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, without long-term 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 E11.65 Active 152780914 Problem Mood disorder F39 Active 70082943 Problem Bipolar I disorder with duy F31.10 Active 87138155 Problem Bipolar I disorder with mood-congruent psychotic features F31.9 Active 125483874 Problem Other chronic pain G89.29 Active 87285020 Problem Cervicalgia M54.2 Active 94781119 Problem OAB (overactive bladder) N32.81 Active 981208801 Problem Hypertension, benign I10 Active 66642708 Problem Type 2 diabetes mellitus with hyperglycemia E11.65 Active 783616381 Problem Gastritis and duodenitis K29.90 Active 698605082 Problem Primary insomnia F51.01 Active 4277792 Problem Hepatitis C B19.20 Active 04205783 Problem COPD (chronic obstructive pulmonary disease) J44.9 Active 20102678 Problem Tobacco abuse Z72.0 Active 75322112 Problem Lumbago M54.5 Active 136826626 Problem Type 2 diabetes mellitus 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s E11.9 Active 278071518 Problem Hypoglycemia E16.2 Active 230535635 Problem Diabetes E11.9 Active 41804094 Problem Bilateral claudication of lower limb I73.9 Active 195195215 ALLERGIES No Information SOCIAL HISTORY Never Assessed PLAN OF CARE VITAL SIGNS MEDICATIONS Unknown Medications RESULTS No Results PROCEDURES No Known procedures IMMUNIZATIONS No Known Immunizations MEDICAL (GENERAL) HISTORY Type Description Date Medical History Hypothyroidism Medical History High cholesterol Medical History Hypertension Medical History Brain seizure Medical History Asthma Medical History COPD Medical History Hep C -2005 Medical History [place] x 2 last in 2009 Medical History PTSD (post-traumatic stress disorder) Medical History PTSD (post-traumatic stress disorder) Surgical History tonsillectomy 1985 Surgical History partial hysterectomy 2004 Surgical History appendectomy 2004 Hospitalization History Surgery(s) only Hospitalization History pneumonia x3 days Hospitalization History Heart cath with stint 05/15/2016 Hospitalization History Diverticulitis, N/[facility] 01/28/17
--- OUTSIDE RECORDS SUMMARY | 2018-02-02 12:32 | XMS REPORT ---
Author Author FRANK LUNA Organization [facility] Address [address] [place] [address] Care Team Providers Care Stock Counter Name Role Phone FRANK LUNA Unavailable PROBLEMS Type Condition ICD9-CM Code [id number] Code Onset Dates Condition Status SNOMED Code Problem History of high cholesterol Z86.39 Active 876041527 Problem History of seizures Z87.898 Active 884543373 Problem History of [place] (myocardial infarction) I25.2 Active 801874166 Problem Bipolar 2 disorder F31.81 Active 99843692 Problem History of hypothyroidism Z86.39 Active 253678703 Problem History of hypertension Z86.79 Active 152308676 Problem Chronic post-traumatic stress disorder (PTSD) F43.12 Active 920606171 Problem Panic disorder with agoraphobia F40.01 Active 86579019 Problem 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 Active 920283157 Problem Epilepsy G40.909 Active 54257483 Problem Type 2 diabetes mellitus with hyperglycemia E11.65 Active 756986860 Problem Uncontrolled type 2 diabetes mellitus 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, without long-term 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 E11.65 Active 135653944 Problem Mood disorder F39 Active 14169602 Problem Bipolar I disorder with duy F31.10 Active 20988517 Problem Bipolar I disorder with mood-congruent psychotic features F31.9 Active 686828487 Problem Other chronic pain G89.29 Active 21164030 Problem Cervicalgia M54.2 Active 16619190 Problem OAB (overactive bladder) N32.81 Active 525624949 Problem Hypertension, benign I10 Active 43906421 Problem Type 2 diabetes mellitus with hyperglycemia E11.65 Active 622833647 Problem Gastritis and duodenitis K29.90 Active 426652871 Problem Primary insomnia F51.01 Active 1578540 Problem Hepatitis C B19.20 Active 95663598 Problem COPD (chronic obstructive pulmonary disease) J44.9 Active 42464336 Problem Tobacco abuse Z72.0 Active 76545917 Problem Lumbago M54.5 Active 253169771 Problem Type 2 diabetes mellitus 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s E11.9 Active 933491235 Problem Hypoglycemia E16.2 Active 075093971 Problem Diabetes E11.9 Active 12933645 Problem Bilateral claudication of lower limb I73.9 Active 928887349 ALLERGIES No Information SOCIAL HISTORY Never Assessed PLAN OF CARE VITAL SIGNS MEDICATIONS Unknown Medications RESULTS No Results PROCEDURES No Known procedures IMMUNIZATIONS No Known Immunizations MEDICAL (GENERAL) HISTORY Type Description Date Medical History Hypothyroidism Medical History High cholesterol Medical History Hypertension Medical History Brain seizure Medical History Asthma Medical History COPD Medical History Hep C -2005 Medical History [place] x 2 last in 2009 Medical History PTSD (post-traumatic stress disorder) Medical History PTSD (post-traumatic stress disorder) Surgical History tonsillectomy 1985 Surgical History partial hysterectomy 2004 Surgical History appendectomy 2004 Hospitalization History Surgery(s) only Hospitalization History pneumonia x3 days Hospitalization History Heart cath with stint 05/15/2016 Hospitalization History Diverticulitis, N/V-[facility] 01/28/17
--- OUTSIDE RECORDS SUMMARY | 2018-02-02 12:33 | XMS REPORT ---
Author Author GERARDO KISER [facility] Address [address] [place] [address] Care Team Providers Care Dental Amalgam Processor Name Role Phone GERARDO KISER Unavailable PROBLEMS Type Condition ICD9-CM Code [id number] Code Onset Dates Condition Status SNOMED Code Problem History of seizures Z87.898 Active 976036820 Problem History of high cholesterol Z86.39 Active 841785991 Problem History of [place] (myocardial infarction) I25.2 Active 673556979 Problem Bipolar 2 disorder F31.81 Active 98353996 Problem History of hypothyroidism Z86.39 Active 734893448 Problem History of hypertension Z86.79 Active 465184288 Problem Panic disorder with agoraphobia F40.01 Active 58113490 Problem penitentiary 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 Active 759450137 Problem Epilepsy G40.909 Active 21696306 Problem Type 2 diabetes mellitus with hyperglycemia E11.65 Active 535095134 Problem OAB (overactive bladder) N32.81 Active 081743499 Problem Mood disorder F39 Active 37571008 Problem Type 2 diabetes mellitus with hyperglycemia E11.65 Active 790805865 Problem Uncontrolled type 2 diabetes mellitus 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, without long-term 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 E11.65 Active 172442395 Problem Stress incontinence of urine N39.3 Active 54969886 Problem Bipolar I disorder with duy F31.10 Active 08531207 Problem Tobacco abuse Z72.0 Active 76928377 Problem Other chronic pain G89.29 Active 12623471 Problem Cervicalgia M54.2 Active 52794050 Problem Primary insomnia F51.01 Active 0976667 Problem Hypertension, benign I10 Active 65374899 Problem Bipolar I disorder with mood-congruent psychotic features F31.9 Active 037874247 Problem Gastritis and duodenitis K29.90 Active 829104035 Problem COPD (chronic obstructive pulmonary disease) J44.9 Active 90744589 Problem Diabetes E11.9 Active 15379189 Problem Lumbago M54.5 Active 095356609 Problem Hepatitis C B19.20 Active 95186385 Problem Hypoglycemia E16.2 Active 955477360 Problem Chronic post-traumatic stress disorder (PTSD) F43.12 Active 599227303 Problem Bilateral claudication of lower limb I73.9 Active 113885023 Problem Type 2 diabetes mellitus 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s E11.9 Active 554858875 ALLERGIES Substance Reaction Event Type Date Status Penicillin V Potassium Unknown Drug Allergy March, Active Metformin HCl diarrhea Drug Allergy March, Active Fentanyl halucinations/insomnia Drug Allergy March, Active SOCIAL HISTORY Never Assessed PLAN OF CARE VITAL SIGNS Height 62 in 2017-03-09 Weight 191.0 lbs 2017-03-09 Temperature 98.2 degrees Fahrenheit 2017-03-09 Heart Rate 104 bpm 2017-03-09 Respiratory Rate 22 2017-03-09 BMI 34.93 kg/m2 2017-03-09 Blood pressure systolic 130 mmHg 2017-03-09 Blood pressure diastolic 95 mmHg 2017-03-09 MEDICATIONS Medication Instructions Dosage Frequency Start Date End Date Duration Status Xanax 2 MG Orally Three times a day 1 tablet 8h Active Zyprexa 2.5 MG Orally Once in the morning 1 tablet Jan, Active Promethazine HCl 25 MG Orally every 6 hrs 1 tablet as needed 6h Active Doxepin HCl 100 mg Orally Once a day 2 capsules at bedtime 24h Jan, Active NovoLog Flexpen 100 UNIT/ML ICD10: E11.9 3 times a day with meals 35 units Nov, Active Symbicort 160-4.5 MCG/ACT Inhalation Twice a day- rinse mouth and spit after use 2 puffs every day Apr, Active Ventolin HFA 108 (90 Base) MCG/ACT Inhalation every 4 hrs 2 puffs as needed 4h Active Effexor XR 150 MG Orally Once a day 1 capsule 24h Apr, Active Levothyroxine Sodium 150 MCG Orally Once a day 1 tablet 24h Oct, Active Levemir FlexTouch 100 UNIT/ML ICD10- E11.9 2 times a day 53 units 12h Nov, Active Nebulizer 1 as directed Apr, Active Blood Glucose Monitor 1 glucometer test blood sugar Apr, Active Aspirin 81 MG Orally Once a day 1 tablet 24h May, 30 day(s) Active Albuterol Sulfate 1.25 MG/3ML Inhalation 4 times a day 3 ml as needed 6h 23 Apr, 2016 Active [place] 10-325 MG Orally 3 times a day 1 tablet as needed 8h March, 28 days Active Montelukast Sodium 10 mg Orally Once a day 1 tablet 24h Oct, 30 days Active Lipitor 40 mg Orally Once a day 1 tablet 24h Active Famotidine 20 mg Orally twice a day 1 tablet 12h March, 30 day(s ) Active Accu-Chek Compact Plus ... sub Q 3 times a day 1 test strip 8h Dec, Active Zyprexa 10 mg Orally Once a day at bedtime 1 tablet Active Atenolol 50 mg Orally Once a day 1 tablet 24h 30 Active Neurontin 300 MG Orally Three times a day 1 capsule 8h Dec, 30 day(s) Active RESULTS Name Result Date Reference Range H PYLORI (IN HOUSE) 2017-03-09 H. PYLORI negative Control + Lot # [id number] Exp date 10/2017 UA LONG DIP (IN HOUSE) 2017-03-09 Lot # [id number] Exp date 01/30/18 Clarity clear Color yellow Odor none GLU negative ELISA negative KET negative SG >=1.030 BLO negative pH 6.5 Protein negative URO 1.0 NIT negative JOSE ENRIQUE negative Lot # Exp date PROCEDURES Procedure Date Ordered Result Body Site IMMUNOASSAY,INFECTIOUS AGENT March 09, 2017 URINALYSIS, AUTO, W/O SCOPE March 09, 2017 IMMUNIZATIONS No Known Immunizations MEDICAL (GENERAL) HISTORY Type Description Date Medical History Hypothyroidism Medical History High cholesterol Medical History Hypertension Medical History Brain seizure Medical History Asthma Medical History COPD Medical History Hep C -2005 Medical History [place] x 2 last in 2009 Medical History PTSD (post-traumatic stress disorder) Medical History PTSD (post-traumatic stress disorder) Surgical History tonsillectomy 1985 Surgical History partial hysterectomy 2004 Surgical History appendectomy 2004 Hospitalization History Surgery(s) only Hospitalization History pneumonia x3 days Hospitalization History Heart cath with stint 05/15/2016 Hospitalization History Diverticulitis, N/V-[facility] 01/28/17
--- OUTSIDE RECORDS SUMMARY | 2018-02-02 12:33 | XMS REPORT ---
Author Author GERARDO KISER [facility] Address [address] [place] [address] Care Team Providers Care Last Putter Away Name Role Phone GERARDO KISER Unavailable PROBLEMS Type Condition ICD9-CM Code [id number] Code Onset Dates Condition Status SNOMED Code Problem History of high cholesterol Z86.39 Active 590633469 Problem History of seizures Z87.898 Active 703128032 Problem History of [place] (myocardial infarction) I25.2 Active 921416965 Problem Bipolar 2 disorder F31.81 Active 93495879 Problem History of hypothyroidism Z86.39 Active 418022349 Problem History of hypertension Z86.79 Active 626748484 Problem Chronic post-traumatic stress disorder (PTSD) F43.12 Active 237995600 Problem Panic disorder with agoraphobia F40.01 Active 92533700 Problem manager 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 Active 705401262 Problem Epilepsy G40.909 Active 93086757 Problem Type 2 diabetes mellitus with hyperglycemia E11.65 Active 828436793 Problem Uncontrolled type 2 diabetes mellitus 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, without long-term 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 E11.65 Active 730285437 Problem Mood disorder F39 Active 79500504 Problem Bipolar I disorder with duy F31.10 Active 63790550 Problem Bipolar I disorder with mood-congruent psychotic features F31.9 Active 338624949 Problem Other chronic pain G89.29 Active 59231480 Problem Cervicalgia M54.2 Active 01736517 Problem OAB (overactive bladder) N32.81 Active 043309398 Problem Hypertension, benign I10 Active 28139289 Problem Type 2 diabetes mellitus with hyperglycemia E11.65 Active 372128609 Problem Gastritis and duodenitis K29.90 Active 941912684 Problem Primary insomnia F51.01 Active 2285583 Problem Hepatitis C B19.20 Active 28060886 Problem COPD (chronic obstructive pulmonary disease) J44.9 Active 85226507 Problem Tobacco abuse Z72.0 Active 33504228 Problem Lumbago M54.5 Active 365926479 Problem Type 2 diabetes mellitus 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s E11.9 Active 664329519 Problem Hypoglycemia E16.2 Active 396684332 Problem Diabetes E11.9 Active 28076320 Problem Bilateral claudication of lower limb I73.9 Active 503181683 ALLERGIES Unknown Allergies SOCIAL HISTORY No smoking Hx information available PLAN OF CARE VITAL SIGNS MEDICATIONS Medication Instructions Dosage Frequency Start Date End Date Duration Status MetFORMIN HCl ER 500 MG Orally twice a day with food 2 tablets Nov, Active Test strips Test Strips Contour Next ANI70-G46.9 3 times a day test 3 times per day 8h Nov, Active RESULTS No Results PROCEDURES No Known procedures IMMUNIZATIONS No Known Immunizations
--- OUTSIDE RECORDS SUMMARY | 2018-02-02 12:33 | XMS REPORT ---
Author Author GERARDO KISER [facility] Address [address] [place] [address] Care Team Providers Care Rand Tacker Name Role Phone GERARDO KISER Unavailable PROBLEMS Type Condition ICD9-CM Code [id number] Code Onset Dates Condition Status SNOMED Code Problem History of seizures Z87.898 Active 407074401 Problem History of high cholesterol Z86.39 Active 396668602 Problem History of [place] (myocardial infarction) I25.2 Active 509425926 Problem Bipolar 2 disorder F31.81 Active 06683438 Problem History of hypothyroidism Z86.39 Active 441755168 Problem History of hypertension Z86.79 Active 034717993 Problem Panic disorder with agoraphobia F40.01 Active 09859956 Problem penitentiary 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 Active 047959563 Problem Epilepsy G40.909 Active 97773970 Problem Type 2 diabetes mellitus with hyperglycemia E11.65 Active 995373381 Problem OAB (overactive bladder) N32.81 Active 559941278 Problem Mood disorder F39 Active 25236873 Problem Type 2 diabetes mellitus with hyperglycemia E11.65 Active 935933130 Problem Uncontrolled type 2 diabetes mellitus 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, without long-term 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 E11.65 Active 062548142 Problem Stress incontinence of urine N39.3 Active 82838247 Problem Bipolar I disorder with duy F31.10 Active 49035949 Problem Tobacco abuse Z72.0 Active 87976327 Problem Other chronic pain G89.29 Active 28389151 Problem Cervicalgia M54.2 Active 44968413 Problem Primary insomnia F51.01 Active 6720806 Problem Hypertension, benign I10 Active 83790674 Problem Bipolar I disorder with mood-congruent psychotic features F31.9 Active 630313289 Problem Gastritis and duodenitis K29.90 Active 955235636 Problem COPD (chronic obstructive pulmonary disease) J44.9 Active 52322611 Problem Diabetes E11.9 Active 98967652 Problem Lumbago M54.5 Active 025271156 Problem Hepatitis C B19.20 Active 68012364 Problem Hypoglycemia E16.2 Active 503347088 Problem Chronic post-traumatic stress disorder (PTSD) F43.12 Active 337347276 Problem Bilateral claudication of lower limb I73.9 Active 506706151 Problem Type 2 diabetes mellitus 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s E11.9 Active [id number] ALLERGIES No Information SOCIAL HISTORY Never Assessed PLAN OF CARE VITAL SIGNS MEDICATIONS Unknown Medications RESULTS Name Result Date Reference Range TSH 2017-03-10 TSH 2.600 0.450-4.500 CBC 2017-03-10 WBC 4.7 3.4-10.8 RBC 4.47 3.77-5.28 Hemoglobin 14.5 11.1-15.9 Hematocrit 43.3 34.0-46.6 MCV 97 79-97 MCH 32.4 26.6-33.0 MCHC 33.5 31.5-35.7 RDW 14.1 12.3-15.4 Platelets 269 150-379 Neutrophils 64 Lymphs 27 Monocytes 5 Eos 3 Basos 1 Neutrophils (Absolute) 3.0 1.4-7.0 Lymphs (Absolute) 1.3 0.7-3.1 Monocytes(Absolute) 0.3 0.1-0.9 Eos (Absolute) 0.1 0.0-0.4 Baso (Absolute) 0.0 0.0-0.2 Immature Granulocytes 0 Immature Grans (Abs) 0.0 0.0-0.1 LIPID PANEL 2017-03-10 Cholesterol, Total 219 100-199 Triglycerides 204 0-149 HDL Cholesterol 45 >39 VLDL Cholesterol Abe 41 5-40 LDL Cholesterol Calc 133 0-99 Comment: CMP 2017-03-10 Glucose, Serum 137 65-99 BUN 11 6-24 Creatinine, Serum 0.74 0.57-1.00 eGFR If NonAfricn Am 97 >59 eGFR If Africn Am 112 >59 BUN/Creatinine Ratio 15 9-23 Sodium, Serum 142 134-144 Potassium, Serum 4.4 3.5-5.2 Chloride, Serum 101 96-106 Carbon Dioxide, Total 26 18-29 Calcium, Serum 9.5 8.7-10.2 Protein, Total, Serum 6.7 6.0-8.5 Albumin, Serum 4.6 3.5-5.5 Globulin, Total 2.1 1.5-4.5 A/G Ratio 2.2 1.2-2.2 Bilirubin, Total 0.3 0.0-1.2 Alkaline Phosphatase, S 72 39-117 AST (SGOT) 22 0-40 ALT (SGPT) 30 0-32 PROCEDURES Procedure Date Ordered Result Body Site LAB [facility] March 10, 2017 VENIPUNCT, ROUTINE* March 10, 2017 IMMUNIZATIONS No Known Immunizations MEDICAL (GENERAL) HISTORY Type Description Date Medical History Hypothyroidism Medical History High cholesterol Medical History Hypertension Medical History Brain seizure Medical History Asthma Medical History COPD Medical History Hep C -2005 Medical History [place] x 2 last in 2009 Medical History PTSD (post-traumatic stress disorder) Medical History PTSD (post-traumatic stress disorder) Surgical History tonsillectomy 1985 Surgical History partial hysterectomy 2004 Surgical History appendectomy 2004 Hospitalization History Surgery(s) only Hospitalization History pneumonia x3 days Hospitalization History Heart cath with stint 05/15/2016 Hospitalization History Diverticulitis, N/[facility] 01/28/17
--- OUTSIDE RECORDS SUMMARY | 2018-02-02 12:34 | XMS REPORT ---
Author Author GERARDO KISER [facility] Address [address] [place] [address] Care Team Providers Care Outsole Beveler Name Role Phone GERARDO KISER Unavailable PROBLEMS Type Condition ICD9-CM Code [id number] Code Onset Dates Condition Status SNOMED Code Problem History of seizures Z87.898 Active 669093090 Problem History of high cholesterol Z86.39 Active 411669435 Problem History of [place] (myocardial infarction) I25.2 Active 192815611 Problem Bipolar 2 disorder F31.81 Active 54492295 Problem History of hypothyroidism Z86.39 Active 210737190 Problem History of hypertension Z86.79 Active 525008746 Problem Panic disorder with agoraphobia F40.01 Active 93456160 Problem retirement 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 Active 231562684 Problem Epilepsy G40.909 Active 41829874 Problem Type 2 diabetes mellitus with hyperglycemia E11.65 Active 264333568 Problem OAB (overactive bladder) N32.81 Active 356169714 Problem Mood disorder F39 Active 20087125 Problem Type 2 diabetes mellitus with hyperglycemia E11.65 Active 973622464 Problem Uncontrolled type 2 diabetes mellitus 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, without long-term 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 E11.65 Active 364294430 Problem Stress incontinence of urine N39.3 Active 42291302 Problem Bipolar I disorder with duy F31.10 Active 65798961 Problem Tobacco abuse Z72.0 Active 62152551 Problem Other chronic pain G89.29 Active 99872620 Problem Cervicalgia M54.2 Active 51878722 Problem Primary insomnia F51.01 Active 3254111 Problem Hypertension, benign I10 Active 57024239 Problem Bipolar I disorder with mood-congruent psychotic features F31.9 Active 406442439 Problem Gastritis and duodenitis K29.90 Active 371228833 Problem COPD (chronic obstructive pulmonary disease) J44.9 Active 42725208 Problem Diabetes E11.9 Active 82219768 Problem Lumbago M54.5 Active 019846884 Problem Hepatitis C B19.20 Active 64291318 Problem Hypoglycemia E16.2 Active 720842463 Problem Chronic post-traumatic stress disorder (PTSD) F43.12 Active 176449674 Problem Bilateral claudication of lower limb I73.9 Active 783579549 Problem Type 2 diabetes mellitus 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s E11.9 Active 268769015 ALLERGIES No Information SOCIAL HISTORY Never Assessed PLAN OF CARE VITAL SIGNS MEDICATIONS Unknown Medications RESULTS No Results PROCEDURES No Known procedures IMMUNIZATIONS No Known Immunizations MEDICAL (GENERAL) HISTORY Type Description Date Medical History Hypothyroidism Medical History High cholesterol Medical History Hypertension Medical History Brain seizure Medical History Asthma Medical History COPD Medical History Hep C -2005 Medical History [place] x 2 last in 2009 Medical History PTSD (post-traumatic stress disorder) Medical History PTSD (post-traumatic stress disorder) Surgical History tonsillectomy 1985 Surgical History partial hysterectomy 2004 Surgical History appendectomy 2004 Hospitalization History Surgery(s) only Hospitalization History pneumonia x3 days Hospitalization History Heart cath with stint 05/15/2016 Hospitalization History Diverticulitis, N/[facility] 01/28/17
--- OUTSIDE RECORDS SUMMARY | 2018-02-02 12:34 | XMS REPORT ---
Author Author FRANK LUNA [facility] Address [address] [place] [address] Care Team Providers Care Rack Washer Name Role Phone FRANK LUNA Unavailable PROBLEMS Type Condition ICD9-CM Code [id number] Code Onset Dates Condition Status SNOMED Code Problem History of seizures Z87.898 Active 678121815 Problem History of high cholesterol Z86.39 Active 521133673 Problem Bipolar 2 disorder F31.81 Active 76024110 Problem History of hypothyroidism Z86.39 Active 822418201 Problem History of hypertension Z86.79 Active 420307068 Problem History of [place] (myocardial infarction) I25.2 Active 604491055 Problem Chronic post-traumatic stress disorder (PTSD) F43.12 Active 972945802 Problem Panic disorder with agoraphobia F40.01 Active 29218115 Problem prototype carpenter 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 Active 993504285 Problem Epilepsy G40.909 Active 66908967 Problem Type 2 diabetes mellitus with hyperglycemia E11.65 Active 551125538 Problem Uncontrolled type 2 diabetes mellitus 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, without long-term 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 E11.65 Active 448609333 Problem Mood disorder F39 Active 84256424 Problem Bipolar I disorder with duy F31.10 Active 41298997 Problem Bipolar I disorder with mood-congruent psychotic features F31.9 Active 223669298 Problem Other chronic pain G89.29 Active 67174932 Problem Cervicalgia M54.2 Active 81606328 Problem Tobacco abuse Z72.0 Active 20267229 Problem Hypertension, benign I10 Active 90679308 Problem Type 2 diabetes mellitus with hyperglycemia E11.65 Active 236991008 Problem Gastritis and duodenitis K29.90 Active 014900620 Problem Primary insomnia F51.01 Active 6786467 Problem Hepatitis C B19.20 Active 80975219 Problem COPD (chronic obstructive pulmonary disease) J44.9 Active 84063437 Problem Lumbago M54.5 Active 524874386 Problem OAB (overactive bladder) N32.81 Active 118537360 Problem Type 2 diabetes mellitus 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s E11.9 Active 987038931 Problem Hypoglycemia E16.2 Active 997032224 Problem Diabetes E11.9 Active 17362425 Problem Bilateral claudication of lower limb I73.9 Active 522600355 ALLERGIES Unknown Allergies SOCIAL HISTORY No smoking Hx information available PLAN OF CARE VITAL SIGNS MEDICATIONS Medication Instructions Dosage Frequency Start Date End Date Duration Status Xanax 2 MG Orally Three times a day 1 tablet 8h 18 Dec, 2015 Active RESULTS No Results PROCEDURES No Known procedures IMMUNIZATIONS No Known Immunizations
--- OUTSIDE RECORDS SUMMARY | 2018-02-02 12:34 | XMS REPORT ---
Author Author GERARDO KISER [facility] Address [address] [place] [address] Care Team Providers Care Plywood Layup Line Core Layer Name Role Phone GERARDO KISER Unavailable PROBLEMS Type Condition ICD9-CM Code [id number] Code Onset Dates Condition Status SNOMED Code Problem History of high cholesterol Z86.39 Active 715520551 Problem History of seizures Z87.898 Active 883193048 Problem History of [place] (myocardial infarction) I25.2 Active 612669881 Problem Bipolar 2 disorder F31.81 Active 62655317 Problem History of hypothyroidism Z86.39 Active 789860967 Problem History of hypertension Z86.79 Active 697846234 Problem Chronic post-traumatic stress disorder (PTSD) F43.12 Active 574114703 Problem Panic disorder with agoraphobia F40.01 Active 06846854 Problem long term care pharmacist 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 Active 856461511 Problem Epilepsy G40.909 Active 35545170 Problem Type 2 diabetes mellitus with hyperglycemia E11.65 Active 112711876 Problem Uncontrolled type 2 diabetes mellitus 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, without long-term 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 E11.65 Active 760797631 Problem Mood disorder F39 Active 73805173 Problem Bipolar I disorder with duy F31.10 Active 81445865 Problem Bipolar I disorder with mood-congruent psychotic features F31.9 Active 750024770 Problem Other chronic pain G89.29 Active 88612468 Problem Cervicalgia M54.2 Active 21643749 Problem OAB (overactive bladder) N32.81 Active 155246767 Problem Hypertension, benign I10 Active 42153972 Problem Type 2 diabetes mellitus with hyperglycemia E11.65 Active 969148112 Problem Gastritis and duodenitis K29.90 Active 683922792 Problem Primary insomnia F51.01 Active 4294469 Problem Hepatitis C B19.20 Active 78247800 Problem COPD (chronic obstructive pulmonary disease) J44.9 Active 22549970 Problem Tobacco abuse Z72.0 Active 02835009 Problem Lumbago M54.5 Active 225231138 Problem Type 2 diabetes mellitus 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s E11.9 Active 606422269 Problem Hypoglycemia E16.2 Active 450773868 Problem Diabetes E11.9 Active 49531603 Problem Bilateral claudication of lower limb I73.9 Active 083803023 ALLERGIES Substance Reaction Event Type Date Status Penicillin V Potassium Unknown Drug Allergy Nov, Active Metformin HCl diarrhea Drug Allergy Nov, Active SOCIAL HISTORY No smoking Hx information available PLAN OF CARE Activity Details Follow Up 2 Weeks Reason:dm2 ooc VITAL SIGNS Height 62 in 2016-11-14 Weight 193.6 lbs 2016-11-14 Temperature 97.9 degrees Fahrenheit 2016-11-14 Heart Rate 80 bpm 2016-11-14 Respiratory Rate 20 2016-11-14 BMI 35.41 kg/m2 2016-11-14 Blood pressure systolic 138 mmHg 2016-11-14 Blood pressure diastolic 80 mmHg 2016-11-14 MEDICATIONS Medication Instructions Dosage Frequency Start Date End Date Duration Status Olanzapine 2.5 MG TAKE ONE TABLET BY MOUTH ONCE DAILY IN THE MORNING Active Highspire 10-325 MG Orally 2 times a day 1 tablet as needed 12h Nov, Active GlipiZIDE 5 mg Orally Once a day 1/2 tablet 24h Active Blood Glucose Monitor 1 glucometer test blood sugar Apr, Active Aspirin 81 MG Orally Once a day 1 tablet 24h May, 30 day(s) Active Cetirizine HCl 10 mg Orally Once a day 1 tablet 24h Jul, Jan, 30 day(s) Active Lipitor 40 mg Orally Once a day 1 tablet 24h Active Albuterol Sulfate 1.25 MG/3ML Inhalation 4 times a day 3 ml as needed 6h Apr, Active Nitroglycerin 0.4 MG Sublingual 3 times a day, prn chest pain 1 tablet Dec, Active Symbicort 160-4.5 MCG/ACT Inhalation Twice a day- rinse mouth and spit after use 2 puffs every day Apr, Active NovoLog Mix 70/30 Flexpen (70-30) 100 UNIT/ML Subcutaneous 2 times a day Inject 10 units 12h Sep, Active Cyproheptadine HCl 4 MG Orally Once at bedtime for trauma nightmares 1 tablet Active Doxepin HCl 150 MG TAKE ONE CAPSULE BY MOUTH ONCE DAILY AT BEDTIME Active Atenolol 25 MG Orally Once a day 1 tablet 24h Active Test strips 1 test blood sugar Aug, Active ProAir HFA 108 (90 Base) MCG/ACT Inhalation 4 times a day 2 puffs as needed 6h Oct, Active Effexor XR 150 MG Orally Once a day 1 capsule 24h Apr, Active Effexor XR 75 MG Orally Once a day 1 capsule 24h Apr, Active Guaifenesin 400 MG Orally every 4 hrs 1 tablet as needed 4h Oct, Active Accu-Chek Compact Plus ... sub Q 3 times a day 1 test strip 8h Dec, Active Levothyroxine Sodium 150 MCG Orally Once a day 1 tablet 24h Oct, Active Highspire 10-325 MG Orally 2 times a day 1 tablet as needed 12h Oct, Active Xanax 2 MG Orally Three times a day 1 tablet 8h 18 Dec, 2015 Active Nebulizer 1 as directed Apr, Active Zyprexa 10 MG Orally Once a day at bedtime 1 tablet Active Montelukast Sodium 10 mg Orally Once a day 1 tablet 24h Oct, 30 days Active RESULTS No Results PROCEDURES Procedure Date Ordered Related Diagnosis Body Site Office Visit, Est Pt., Level 3 Nov 14, 2016 IMMUNIZATIONS No Known Immunizations
--- OUTSIDE RECORDS SUMMARY | 2018-02-02 12:35 | XMS REPORT ---
Author Author GERARDO KISER [facility] Address [address] [place] [address] Care Team Providers Care Junk Removal Specialist Name Role Phone GERARDO KISER Unavailable PROBLEMS Type Condition ICD9-CM Code [id number] Code Onset Dates Condition Status SNOMED Code Problem History of seizures Z87.898 Active 273477626 Problem History of high cholesterol Z86.39 Active 181990234 Problem History of [place] (myocardial infarction) I25.2 Active 667161089 Problem Bipolar 2 disorder F31.81 Active 05892528 Problem History of hypothyroidism Z86.39 Active 544088082 Problem History of hypertension Z86.79 Active 095058732 Problem Panic disorder with agoraphobia F40.01 Active 45284805 Problem [facility] 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 Active 448790624 Problem Epilepsy G40.909 Active 32124338 Problem Type 2 diabetes mellitus with hyperglycemia E11.65 Active 464588805 Problem OAB (overactive bladder) N32.81 Active 732711545 Problem Mood disorder F39 Active 38206949 Problem Type 2 diabetes mellitus with hyperglycemia E11.65 Active 057993061 Problem Uncontrolled type 2 diabetes mellitus 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, without long-term 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 E11.65 Active 731611650 Problem Stress incontinence of urine N39.3 Active 10079484 Problem Bipolar I disorder with duy F31.10 Active 44339227 Problem Tobacco abuse Z72.0 Active 79157580 Problem Other chronic pain G89.29 Active 04248646 Problem Cervicalgia M54.2 Active 89539036 Problem Primary insomnia F51.01 Active 1127688 Problem Hypertension, benign I10 Active 11778081 Problem Bipolar I disorder with mood-congruent psychotic features F31.9 Active 262495488 Problem Gastritis and duodenitis K29.90 Active 009422712 Problem COPD (chronic obstructive pulmonary disease) J44.9 Active 09032718 Problem Diabetes E11.9 Active 81021949 Problem Lumbago M54.5 Active 214133207 Problem Hepatitis C B19.20 Active 55152123 Problem Hypoglycemia E16.2 Active 325084776 Problem Chronic post-traumatic stress disorder (PTSD) F43.12 Active 935118074 Problem Bilateral claudication of lower limb I73.9 Active 087408299 Problem Type 2 diabetes mellitus 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s E11.9 Active 810363481 ALLERGIES No Information SOCIAL HISTORY Never Assessed PLAN OF CARE VITAL SIGNS MEDICATIONS Unknown Medications RESULTS No Results PROCEDURES No Known procedures IMMUNIZATIONS No Known Immunizations MEDICAL (GENERAL) HISTORY Type Description Date Medical History Hypothyroidism Medical History High cholesterol Medical History Hypertension Medical History Brain seizure Medical History Asthma Medical History COPD Medical History Hep C -2005 Medical History [place] x 2 last in 2009 Medical History PTSD (post-traumatic stress disorder) Medical History PTSD (post-traumatic stress disorder) Surgical History tonsillectomy 1985 Surgical History partial hysterectomy 2004 Surgical History appendectomy 2004 Hospitalization History Surgery(s) only Hospitalization History pneumonia x3 days Hospitalization History Heart cath with stint 05/15/2016 Hospitalization History Diverticulitis, N/V-[facility] 01/28/17
--- OUTSIDE RECORDS SUMMARY | 2018-02-02 12:35 | XMS REPORT ---
Author Author GERARDO KISER [facility] Address [address] [place] [address] Care Team Providers Care Chart Clerk Name Role Phone GERARDO KISER Unavailable PROBLEMS Type Condition ICD9-CM Code [id number] Code Onset Dates Condition Status SNOMED Code Problem History of high cholesterol Z86.39 Active 519457830 Problem History of seizures Z87.898 Active 486213821 Problem History of [place] (myocardial infarction) I25.2 Active 131020788 Problem Bipolar 2 disorder F31.81 Active 11566381 Problem History of hypothyroidism Z86.39 Active 222959040 Problem History of hypertension Z86.79 Active 758951047 Problem Chronic post-traumatic stress disorder (PTSD) F43.12 Active 846661315 Problem Panic disorder with agoraphobia F40.01 Active 16274612 Problem 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 Active 852596422 Problem Epilepsy G40.909 Active 57092885 Problem Type 2 diabetes mellitus with hyperglycemia E11.65 Active 206610653 Problem Uncontrolled type 2 diabetes mellitus 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, without long-term 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 E11.65 Active 673129691 Problem Mood disorder F39 Active 59273901 Problem Bipolar I disorder with duy F31.10 Active 36103382 Problem Bipolar I disorder with mood-congruent psychotic features F31.9 Active 515602483 Problem Other chronic pain G89.29 Active 85170114 Problem Cervicalgia M54.2 Active 28271150 Problem OAB (overactive bladder) N32.81 Active 357132804 Problem Hypertension, benign I10 Active 56957673 Problem Type 2 diabetes mellitus with hyperglycemia E11.65 Active 314019845 Problem Gastritis and duodenitis K29.90 Active 193814868 Problem Primary insomnia F51.01 Active 6614325 Problem Hepatitis C B19.20 Active 29502174 Problem COPD (chronic obstructive pulmonary disease) J44.9 Active 52509170 Problem Tobacco abuse Z72.0 Active 49054633 Problem Lumbago M54.5 Active 397078028 Problem Type 2 diabetes mellitus 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s E11.9 Active 031316365 Problem Hypoglycemia E16.2 Active 763362507 Problem Diabetes E11.9 Active 36754907 Problem Bilateral claudication of lower limb I73.9 Active 355919977 ALLERGIES No Information SOCIAL HISTORY Never Assessed [...]
--- OUTSIDE RECORDS SUMMARY | 2018-02-02 12:35 | XMS REPORT ---
Author Author FRANK LUNA Organization [facility] Address [address] [place] [address] Care Team Providers Care Pill Machine Operator Name Role Phone FRANK LUNA Unavailable PROBLEMS Type Condition ICD9-CM Code [id number] Code Onset Dates Condition Status SNOMED Code Problem History of seizures Z87.898 Active 892926725 Problem History of high cholesterol Z86.39 Active 178702170 Problem History of [place] (myocardial infarction) I25.2 Active 708011132 Problem Bipolar 2 disorder F31.81 Active 02909843 Problem History of hypothyroidism Z86.39 Active 819404315 Problem History of hypertension Z86.79 Active 237759535 Problem Panic disorder with agoraphobia F40.01 Active 39805260 Problem termite treater helper 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 Active 109539389 Problem Epilepsy G40.909 Active 87545274 Problem Type 2 diabetes mellitus with hyperglycemia E11.65 Active 026042871 Problem OAB (overactive bladder) N32.81 Active 751094037 Problem Mood disorder F39 Active 40239400 Problem Type 2 diabetes mellitus with hyperglycemia E11.65 Active 071577445 Problem Uncontrolled type 2 diabetes mellitus 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, without long-term 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 E11.65 Active 355661093 Problem Stress incontinence of urine N39.3 Active 63013823 Problem Bipolar I disorder with duy F31.10 Active 15031942 Problem Tobacco abuse Z72.0 Active 79575942 Problem Other chronic pain G89.29 Active 60374082 Problem Cervicalgia M54.2 Active 49538117 Problem Primary insomnia F51.01 Active 3473448 Problem Hypertension, benign I10 Active 69258181 Problem Bipolar I disorder with mood-congruent psychotic features F31.9 Active 998207121 Problem Gastritis and duodenitis K29.90 Active 055112498 Problem COPD (chronic obstructive pulmonary disease) J44.9 Active 16535917 Problem Diabetes E11.9 Active 99334892 Problem Lumbago M54.5 Active 721700650 Problem Hepatitis C B19.20 Active 79259066 Problem Hypoglycemia E16.2 Active 022384707 Problem Chronic post-traumatic stress disorder (PTSD) F43.12 Active 811880547 Problem Bilateral claudication of lower limb I73.9 Active 763297078 Problem Type 2 diabetes mellitus 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s E11.9 Active 831193392 ALLERGIES No Information SOCIAL HISTORY Never Assessed PLAN OF CARE VITAL SIGNS MEDICATIONS Unknown Medications RESULTS No Results PROCEDURES No Known procedures IMMUNIZATIONS No Known Immunizations MEDICAL (GENERAL) HISTORY Type Description Date Medical History Hypothyroidism Medical History High cholesterol Medical History Hypertension Medical History Brain seizure Medical History Asthma Medical History COPD Medical History Hep C -2005 Medical History [place] x 2 last in 2009 Medical History PTSD (post-traumatic stress disorder) Medical History PTSD (post-traumatic stress disorder) Surgical History tonsillectomy 1985 Surgical History partial hysterectomy 2004 Surgical History appendectomy 2004 Hospitalization History Surgery(s) only Hospitalization History pneumonia x3 days Hospitalization History Heart cath with stint 05/15/2016 Hospitalization History Diverticulitis, N/V-[facility] 01/28/17
--- OUTSIDE RECORDS SUMMARY | 2018-02-02 12:35 | XMS REPORT ---
Author Author FRANK LUNA Organization [facility] Address [address] [place] [address] Care Team Providers Care Safety Professional Name Role Phone FRANK LUNA Unavailable PROBLEMS Type Condition ICD9-CM Code [id number] Code Onset Dates Condition Status SNOMED Code Problem History of seizures Z87.898 Active 914346018 Problem History of high cholesterol Z86.39 Active 117837206 Problem History of [place] (myocardial infarction) I25.2 Active 623982523 Problem Bipolar 2 disorder F31.81 Active 17808679 Problem History of hypothyroidism Z86.39 Active 817581352 Problem History of hypertension Z86.79 Active 011413353 Problem Panic disorder with agoraphobia F40.01 Active 97209012 Problem alf 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 Active 177822924 Problem Epilepsy G40.909 Active 46707570 Problem Type 2 diabetes mellitus with hyperglycemia E11.65 Active 495317775 Problem OAB (overactive bladder) N32.81 Active 333279854 Problem Mood disorder F39 Active 60618156 Problem Type 2 diabetes mellitus with hyperglycemia E11.65 Active 492005544 Problem Uncontrolled type 2 diabetes mellitus 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, without long-term 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 E11.65 Active 193468670 Problem Stress incontinence of urine N39.3 Active 11077563 Problem Bipolar I disorder with duy F31.10 Active 14755041 Problem Tobacco abuse Z72.0 Active 54292279 Problem Other chronic pain G89.29 Active 71915558 Problem Cervicalgia M54.2 Active 20892541 Problem Primary insomnia F51.01 Active 4415904 Problem Hypertension, benign I10 Active 34110598 Problem Bipolar I disorder with mood-congruent psychotic features F31.9 Active 842528725 Problem Gastritis and duodenitis K29.90 Active 492492822 Problem COPD (chronic obstructive pulmonary disease) J44.9 Active 00320443 Problem Diabetes E11.9 Active 18154397 Problem Lumbago M54.5 Active 104956290 Problem Hepatitis C B19.20 Active 54922125 Problem Hypoglycemia E16.2 Active 933756022 Problem Chronic post-traumatic stress disorder (PTSD) F43.12 Active 340808089 Problem Bilateral claudication of lower limb I73.9 Active 621459221 Problem Type 2 diabetes mellitus 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s E11.9 Active 714635647 ALLERGIES No Information SOCIAL HISTORY Never Assessed PLAN OF CARE Activity Details Follow Up 2 Months Reason: VITAL SIGNS Height 62 in 2017-03-05 Weight 191.6 lbs 2017-03-05 Heart Rate 84 bpm 2017-03-05 Respiratory Rate 22 2017-03-05 BMI 35.04 kg/m2 2017-03-05 Blood pressure systolic 138 mmHg 2017-03-05 Blood pressure diastolic 80 mmHg 2017-03-05 MEDICATIONS Medication Instructions Dosage Frequency Start Date End Date Duration Status Accu-Chek Compact Plus ... sub Q 3 times a day 1 test strip 8h Dec, Active Albuterol Sulfate 1.25 MG/3ML Inhalation 4 times a day 3 ml as needed 6h Apr, Active Montelukast Sodium 10 mg Orally Once a day 1 tablet 24h Oct, 30 days Active Levothyroxine Sodium 150 MCG Orally Once a day 1 tablet 24h Oct, Active Xanax 2 MG Orally Three times a day 1 tablet 8h Active Blood Glucose Monitor 1 glucometer test blood sugar Apr, Active Neurontin 300 MG Orally Three times a day 1 capsule 8h Dec, 30 day(s) Active Aspirin 81 MG Orally Once a day 1 tablet 24h May, 30 day(s) Active Atenolol 50 mg Orally Once a day 1 tablet 24h 30 Active Effexor XR 150 MG Orally Once a day 1 capsule 24h Apr, Active Zyprexa 2.5 MG Orally Once in the morning 1 tablet Jan, Active NovoLog Flexpen 100 UNIT/ML ICD10: E11.9 3 times a day with meals 35 units Nov, Active Levemir FlexTouch 100 UNIT/ML ICD10- E11.9 2 times a day 53 units 12h Nov, Active Symbicort 160-4.5 MCG/ACT Inhalation Twice a day- rinse mouth and spit after use 2 puffs every day Apr, Active [place] 10-325 MG Orally 3 times a day 1 tablet as needed 8h March, 28 days Active Nebulizer 1 as directed Apr, Active Ventolin HFA 108 (90 Base) MCG/ACT Inhalation every 4 hrs 2 puffs as needed 4h Active Zyprexa 10 mg Orally Once a day at bedtime 1 tablet Active Promethazine HCl 25 MG Orally every 6 hrs 1 tablet as needed 6h Active Lipitor 40 mg Orally Once a day 1 tablet 24h Active Doxepin HCl 100 mg Orally Once a day 2 capsules at bedtime 24h Jan, Active RESULTS No Results PROCEDURES No Known procedures IMMUNIZATIONS No Known Immunizations MEDICAL (GENERAL) HISTORY Type Description Date Medical History Hypothyroidism Medical History High cholesterol Medical History Hypertension Medical History Brain seizure Medical History Asthma Medical History COPD Medical History Hep C -2005 Medical History [place] x 2 last in 2009 Medical History PTSD (post-traumatic stress disorder) Medical History PTSD (post-traumatic stress disorder) Surgical History tonsillectomy 1985 Surgical History partial hysterectomy 2004 Surgical History appendectomy 2004 Hospitalization History Surgery(s) only Hospitalization History pneumonia x3 days Hospitalization History Heart cath with stint 05/15/2016 Hospitalization History Diverticulitis, N/V-[facility] 01/28/17
--- OUTSIDE RECORDS SUMMARY | 2018-02-02 12:36 | XMS REPORT ---
Author Author GERARDO KISER [facility] Address [address] [place] [address] Care Team Providers Care Rn Referral Name Role Phone GERARDO KISER Unavailable PROBLEMS Type Condition ICD9-CM Code [id number] Code Onset Dates Condition Status SNOMED Code Problem History of seizures Z87.898 Active 376495389 Problem History of high cholesterol Z86.39 Active 662184430 Problem History of [place] (myocardial infarction) I25.2 Active 761832260 Problem Bipolar 2 disorder F31.81 Active 18423557 Problem History of hypothyroidism Z86.39 Active 315586677 Problem History of hypertension Z86.79 Active 691460909 Problem Panic disorder with agoraphobia F40.01 Active 20837692 Problem senior living 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 Active 504099950 Problem Epilepsy G40.909 Active 47948749 Problem Type 2 diabetes mellitus with hyperglycemia E11.65 Active 722201958 Problem OAB (overactive bladder) N32.81 Active 025645197 Problem Mood disorder F39 Active 86747655 Problem Type 2 diabetes mellitus with hyperglycemia E11.65 Active 810609625 Problem Uncontrolled type 2 diabetes mellitus 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, without long-term 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 E11.65 Active 574079640 Problem Stress incontinence of urine N39.3 Active 97398871 Problem Bipolar I disorder with duy F31.10 Active 08257426 Problem Tobacco abuse Z72.0 Active 57453712 Problem Other chronic pain G89.29 Active 83901082 Problem Cervicalgia M54.2 Active 23605557 Problem Primary insomnia F51.01 Active 9670069 Problem Hypertension, benign I10 Active 25987809 Problem Bipolar I disorder with mood-congruent psychotic features F31.9 Active 785799558 Problem Gastritis and duodenitis K29.90 Active 223671774 Problem COPD (chronic obstructive pulmonary disease) J44.9 Active 80026800 Problem Diabetes E11.9 Active 17542157 Problem Lumbago M54.5 Active 715935864 Problem Hepatitis C B19.20 Active 08919212 Problem Hypoglycemia E16.2 Active 189800255 Problem Chronic post-traumatic stress disorder (PTSD) F43.12 Active 057871798 Problem Bilateral claudication of lower limb I73.9 Active 409709543 Problem Type 2 diabetes mellitus 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s E11.9 Active 251762581 ALLERGIES No Information SOCIAL HISTORY Never Assessed PLAN OF CARE VITAL SIGNS MEDICATIONS Unknown Medications RESULTS No Results PROCEDURES No Known procedures IMMUNIZATIONS No Known Immunizations MEDICAL (GENERAL) HISTORY Type Description Date Medical History Hypothyroidism Medical History High cholesterol Medical History Hypertension Medical History Brain seizure Medical History Asthma Medical History COPD Medical History Hep C -2005 Medical History [place] x 2 last in 2009 Medical History PTSD (post-traumatic stress disorder) Medical History PTSD (post-traumatic stress disorder) Surgical History tonsillectomy 1985 Surgical History partial hysterectomy 2004 Surgical History appendectomy 2004 Hospitalization History Surgery(s) only Hospitalization History pneumonia x3 days Hospitalization History Heart cath with stint 05/15/2016 Hospitalization History Diverticulitis, N/V-[facility] 01/28/17
--- OUTSIDE RECORDS SUMMARY | 2018-02-02 12:36 | XMS REPORT ---
Author Author GERRADO KISER [facility] Address [address] [place] [address] Care Team Providers Care Mop Man Name Role Phone GERARDO KISER Unavailable PROBLEMS Type Condition ICD9-CM Code [id number] Code Onset Dates Condition Status SNOMED Code Problem History of high cholesterol Z86.39 Active 140118381 Problem History of seizures Z87.898 Active 235961662 Problem History of [place] (myocardial infarction) I25.2 Active 367463492 Problem Bipolar 2 disorder F31.81 Active 66924798 Problem History of hypothyroidism Z86.39 Active 524537878 Problem History of hypertension Z86.79 Active 772221790 Problem Chronic post-traumatic stress disorder (PTSD) F43.12 Active 083195087 Problem Panic disorder with agoraphobia F40.01 Active 87598834 Problem 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 Active 485743012 Problem Epilepsy G40.909 Active 27081053 Problem Type 2 diabetes mellitus with hyperglycemia E11.65 Active 028819488 Problem Uncontrolled type 2 diabetes mellitus 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, without long-term 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 E11.65 Active 888185010 Problem Mood disorder F39 Active 07992283 Problem Bipolar I disorder with duy F31.10 Active 05244378 Problem Bipolar I disorder with mood-congruent psychotic features F31.9 Active 074248635 Problem Other chronic pain G89.29 Active 02799651 Problem Cervicalgia M54.2 Active 08675206 Problem OAB (overactive bladder) N32.81 Active 866103316 Problem Hypertension, benign I10 Active 15333175 Problem Type 2 diabetes mellitus with hyperglycemia E11.65 Active 812871979 Problem Gastritis and duodenitis K29.90 Active 961420487 Problem Primary insomnia F51.01 Active 8648775 Problem Hepatitis C B19.20 Active 61901390 Problem COPD (chronic obstructive pulmonary disease) J44.9 Active 95384179 Problem Tobacco abuse Z72.0 Active 95710234 Problem Lumbago M54.5 Active 405803530 Problem Type 2 diabetes mellitus 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s E11.9 Active 627244763 Problem Hypoglycemia E16.2 Active 112068464 Problem Diabetes E11.9 Active 98420183 Problem Bilateral claudication of lower limb I73.9 Active 546681774 ALLERGIES Substance Reaction Event Type Date Status Penicillin V Potassium Unknown Drug Allergy Dec, Active Metformin HCl diarrhea Drug Allergy Dec, Active SOCIAL HISTORY No smoking Hx information available PLAN OF CARE Activity Details Follow Up 4 Weeks Reason:dm2 ooc VITAL SIGNS Height 62 in 2016-12-05 Weight 196.0 lbs 2016-12-05 Temperature 98.0 degrees Fahrenheit 2016-12-05 Heart Rate 76 bpm 2016-12-05 Respiratory Rate 22 2016-12-05 BMI 35.84 kg/m2 2016-12-05 Blood pressure systolic 120 mmHg 2016-12-05 Blood pressure diastolic 72 mmHg 2016-12-05 MEDICATIONS Medication Instructions Dosage Frequency Start Date End Date Duration Status Test strips Test Strips Contour Next CAX86-Z64.9 3 times a day test 3 times per day 8h Nov, Active Montelukast Sodium 10 mg Orally Once a day 1 tablet 24h 10 Oct, 2015 30 days Active Effexor XR 75 MG Orally Once a day 1 capsule 24h Apr, Active Nebulizer 1 as directed Apr, Active Effexor XR 150 MG Orally Once a day 1 capsule 24h Apr, Active [place] 10-325 MG Orally 2 times a day 1 tablet as needed 12h Nov, Active Levemir FlexTouch 100 UNIT/ML Subcutaneous 2 times a day 35 units 12h Nov, Active Atenolol 25 MG Orally Once a day 1 tablet 24h 30 Active Ranitidine HCl 150 MG Orally Twice a day 1 tablet at bedtime 12h Nov, 30 day(s) Active Xanax 2 MG Orally Three times a day 1 tablet 8h Dec, 30 days Active MetFORMIN HCl ER 500 MG Orally twice a day with food 2 tablets Nov, Active HydrOXYzine Pamoate 50 mg Orally Take 1-2 capsules at bedtime for sleep. 1 capsule as needed 30 Active Test strips 1 test blood sugar Aug, Active Accu-Chek Compact Plus ... sub Q 3 times a day 1 test strip 8h Dec, Active Lipitor 40 mg Orally Once a day 1 tablet 24h Active Blood Glucose Monitor 1 glucometer test blood sugar Apr, Active NovoLog Flexpen 100 UNIT/ML Subcutaneous 3 times a day with meals 30 units Nov, Active Cyproheptadine HCl 4 MG Orally Once at bedtime for trauma nightmares 1 tablet Active Nitroglycerin 0.4 MG Sublingual 3 times a day, prn chest pain 1 tablet Dec, Active Symbicort 160-4.5 MCG/ACT Inhalation Twice a day- rinse mouth and spit after use 2 puffs every day Apr, Active ProAir HFA 108 (90 Base) MCG/ACT Inhalation 4 times a day 2 puffs as needed 6h Oct, Active Cetirizine HCl 10 mg Orally Once a day 1 tablet 24h Jul, Jan, 30 day(s) Active Olanzapine 2.5 MG TAKE ONE TABLET BY MOUTH ONCE DAILY IN THE MORNING Active Albuterol Sulfate 1.25 MG/3ML Inhalation 4 times a day 3 ml as needed 6h Apr, Active Levothyroxine Sodium 150 MCG Orally Once a day 1 tablet 24h Oct, Active Diflucan 150 MG Orally Once a day 1 tablet 24h Dec, 1 dose Active Aspirin 81 MG Orally Once a day 1 tablet 24h May, 30 day(s) Active Doxepin HCl 150 MG TAKE ONE CAPSULE BY MOUTH ONCE DAILY AT BEDTIME 30 Active Zyprexa 10 MG Orally Once a day at bedtime 1 tablet Active RESULTS Name Result Date Reference Range [employer] 2016-12-05 PROCEDURES Procedure Date Ordered Related Diagnosis Body Site Office Visit, Est Pt., Level 3 Dec 05, 2016 No Charge Dec 05, 2016 IMMUNIZATIONS No Known Immunizations
--- OUTSIDE RECORDS SUMMARY | 2018-02-02 12:36 | XMS REPORT ---
Author Author GERARDO KISER [facility] Address [address] [place] [address] Care Team Providers Care Direct Sales Representative Name Role Phone GERARDO KISER Unavailable PROBLEMS Type Condition ICD9-CM Code [id number] Code Onset Dates Condition Status SNOMED Code Problem History of high cholesterol Z86.39 Active 063433058 Problem History of seizures Z87.898 Active 099094168 Problem History of [place] (myocardial infarction) I25.2 Active 210345271 Problem Bipolar 2 disorder F31.81 Active 83089131 Problem History of hypothyroidism Z86.39 Active 973842871 Problem History of hypertension Z86.79 Active 576800303 Problem Chronic post-traumatic stress disorder (PTSD) F43.12 Active 991877923 Problem Panic disorder with agoraphobia F40.01 Active 04384415 Problem 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 Active 044614394 Problem Epilepsy G40.909 Active 48988026 Problem Type 2 diabetes mellitus with hyperglycemia E11.65 Active 971956460 Problem Uncontrolled type 2 diabetes mellitus 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, without long-term 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 E11.65 Active 909573251 Problem Mood disorder F39 Active 20052171 Problem Bipolar I disorder with duy F31.10 Active 98139500 Problem Bipolar I disorder with mood-congruent psychotic features F31.9 Active 070070201 Problem Other chronic pain G89.29 Active 62816607 Problem Cervicalgia M54.2 Active 45867707 Problem OAB (overactive bladder) N32.81 Active 818544105 Problem Hypertension, benign I10 Active 08012954 Problem Type 2 diabetes mellitus with hyperglycemia E11.65 Active 305720222 Problem Gastritis and duodenitis K29.90 Active 909769142 Problem Primary insomnia F51.01 Active 1367945 Problem Hepatitis C B19.20 Active 06396167 Problem COPD (chronic obstructive pulmonary disease) J44.9 Active 82751427 Problem Tobacco abuse Z72.0 Active 23427047 Problem Lumbago M54.5 Active 060602668 Problem Type 2 diabetes mellitus 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s E11.9 Active 090477237 Problem Hypoglycemia E16.2 Active 643421651 Problem Diabetes E11.9 Active 22476813 Problem Bilateral claudication of lower limb I73.9 Active 335745308 ALLERGIES No Information SOCIAL HISTORY Never Assessed PLAN OF CARE VITAL SIGNS MEDICATIONS Medication Instructions Dosage Frequency Start Date End Date Duration Status NovoLog Flexpen 100 UNIT/ML ICD10: E11.9 3 times a day with meals 55 units Nov, Active Levemir FlexTouch 100 UNIT/ML ICD10- E11.9 2 times a day 59 units 12h Nov, Active RESULTS No Results PROCEDURES No Known procedures IMMUNIZATIONS No Known Immunizations MEDICAL (GENERAL) HISTORY Type Description Date Medical History Hypothyroidism Medical History High cholesterol Medical History Hypertension Medical History Brain seizure Medical History Asthma Medical History COPD Medical History Hep C -2005 Medical History [place] x 2 last in 2009 Medical History PTSD (post-traumatic stress disorder) Medical History PTSD (post-traumatic stress disorder) Surgical History tonsillectomy 1985 Surgical History partial hysterectomy 2004 Surgical History appendectomy 2004 Hospitalization History Surgery(s) only Hospitalization History pneumonia x3 days Hospitalization History Heart cath with stint 05/15/2016 Hospitalization History Diverticulitis, N/V-[facility] 01/28/17
--- OUTSIDE RECORDS SUMMARY | 2018-02-02 12:37 | XMS REPORT ---
Author Author GERARDO KISER [facility] Address [address] [place] [address] Care Team Providers Care Sole Blacker Name Role Phone GERARDO KISER Unavailable PROBLEMS Type Condition ICD9-CM Code [id number] Code Onset Dates Condition Status SNOMED Code Problem History of seizures Z87.898 Active 173152310 Problem History of high cholesterol Z86.39 Active 594104052 Problem History of [place] (myocardial infarction) I25.2 Active 224290640 Problem Bipolar 2 disorder F31.81 Active 76875242 Problem History of hypothyroidism Z86.39 Active 273196746 Problem History of hypertension Z86.79 Active 206531496 Problem Panic disorder with agoraphobia F40.01 Active 48523421 Problem long-term 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 Active 005085915 Problem Epilepsy G40.909 Active 52010059 Problem Type 2 diabetes mellitus with hyperglycemia E11.65 Active 653178611 Problem OAB (overactive bladder) N32.81 Active 045424517 Problem Mood disorder F39 Active 24891554 Problem Type 2 diabetes mellitus with hyperglycemia E11.65 Active 574903252 Problem Uncontrolled type 2 diabetes mellitus 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, without long-term 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 E11.65 Active 778270243 Problem Stress incontinence of urine N39.3 Active 86649839 Problem Bipolar I disorder with duy F31.10 Active 79472378 Problem Tobacco abuse Z72.0 Active 47279368 Problem Other chronic pain G89.29 Active 98585314 Problem Cervicalgia M54.2 Active 73758573 Problem Primary insomnia F51.01 Active 3199968 Problem Hypertension, benign I10 Active 63476613 Problem Bipolar I disorder with mood-congruent psychotic features F31.9 Active 474607951 Problem Gastritis and duodenitis K29.90 Active 345535456 Problem COPD (chronic obstructive pulmonary disease) J44.9 Active 76718154 Problem Diabetes E11.9 Active 73162237 Problem Lumbago M54.5 Active 285604488 Problem Hepatitis C B19.20 Active 62840422 Problem Hypoglycemia E16.2 Active 513945847 Problem Chronic post-traumatic stress disorder (PTSD) F43.12 Active 815252053 Problem Bilateral claudication of lower limb I73.9 Active 354356999 Problem Type 2 diabetes mellitus 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s E11.9 Active 675666638 ALLERGIES No Information SOCIAL HISTORY Never Assessed PLAN OF CARE VITAL SIGNS MEDICATIONS Unknown Medications RESULTS No Results PROCEDURES No Known procedures IMMUNIZATIONS No Known Immunizations MEDICAL (GENERAL) HISTORY Type Description Date Medical History Hypothyroidism Medical History High cholesterol Medical History Hypertension Medical History Brain seizure Medical History Asthma Medical History COPD Medical History Hep C -2005 Medical History [place] x 2 last in 2009 Medical History PTSD (post-traumatic stress disorder) Medical History PTSD (post-traumatic stress disorder) Surgical History tonsillectomy 1985 Surgical History partial hysterectomy 2004 Surgical History appendectomy 2004 Hospitalization History Surgery(s) only Hospitalization History pneumonia x3 days Hospitalization History Heart cath with stint 05/15/2016 Hospitalization History Diverticulitis, N/V-[facility] 01/28/17
--- OUTSIDE RECORDS SUMMARY | 2018-02-02 12:37 | XMS REPORT ---
Author Author GERARDO KISER [facility] Address [address] [place] [address] Care Team Providers Care Timber Supervisor Name Role Phone GERARDO KISER Unavailable PROBLEMS Type Condition ICD9-CM Code IBO38-FS Code Onset Dates Condition Status SNOMED Code Problem History of seizures Z87.898 Active 793744859 Problem History of high cholesterol Z86.39 Active 599802062 Problem History of [place] (myocardial infarction) I25.2 Active 668437443 Problem Bipolar 2 disorder F31.81 Active 83136093 Problem History of hypothyroidism Z86.39 Active 107487777 Problem History of hypertension Z86.79 Active 496580906 Problem Panic disorder with agoraphobia F40.01 Active 63632562 Problem custodial 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 Active 543595484 Problem Epilepsy G40.909 Active 63280652 Problem Type 2 diabetes mellitus with hyperglycemia E11.65 Active 241152727 Problem OAB (overactive bladder) N32.81 Active 347340817 Problem Mood disorder F39 Active 75424327 Problem Type 2 diabetes mellitus with hyperglycemia E11.65 Active 064743486 Problem Uncontrolled type 2 diabetes mellitus 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, without long-term 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 E11.65 Active 723526531 Problem Stress incontinence of urine N39.3 Active 36601759 Problem Bipolar I disorder with duy F31.10 Active 28761052 Problem Tobacco abuse Z72.0 Active 22935213 Problem Other chronic pain G89.29 Active 38743477 Problem Cervicalgia M54.2 Active 39203577 Problem Primary insomnia F51.01 Active 3365724 Problem Hypertension, benign I10 Active 06972208 Problem Bipolar I disorder with mood-congruent psychotic features F31.9 Active 780799301 Problem Gastritis and duodenitis K29.90 Active 493369095 Problem COPD (chronic obstructive pulmonary disease) J44.9 Active 79864888 Problem Diabetes E11.9 Active 45842381 Problem Lumbago M54.5 Active 365917021 Problem Hepatitis C B19.20 Active 03983948 Problem Hypoglycemia E16.2 Active 269703693 Problem Chronic post-traumatic stress disorder (PTSD) F43.12 Active 064930521 Problem Bilateral claudication of lower limb I73.9 Active 182649483 Problem Type 2 diabetes mellitus 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s E11.9 Active 890617637 ALLERGIES No Information SOCIAL HISTORY Never Assessed PLAN OF CARE VITAL SIGNS MEDICATIONS Unknown Medications RESULTS No Results PROCEDURES No Known procedures IMMUNIZATIONS No Known Immunizations MEDICAL (GENERAL) HISTORY Type Description Date Medical History Hypothyroidism Medical History High cholesterol Medical History Hypertension Medical History Brain seizure Medical History Asthma Medical History COPD Medical History Hep C -2005 Medical History [place] x 2 last in 2009 Medical History PTSD (post-traumatic stress disorder) Medical History PTSD (post-traumatic stress disorder) Surgical History tonsillectomy 1985 Surgical History partial hysterectomy 2004 Surgical History appendectomy 2004 Hospitalization History Surgery(s) only Hospitalization History pneumonia x3 days Hospitalization History Heart cath with stint 05/15/2016 Hospitalization History Diverticulitis, N/V-[facility] 01/28/17
--- OUTSIDE RECORDS SUMMARY | 2018-02-02 12:37 | XMS REPORT ---
Author Author GERARDO KISER [facility] Address [address] [place] [address] Care Team Providers Care Director Sterile Processing Name Role Phone GERARDO KISER Unavailable PROBLEMS Type Condition ICD9-CM Code [id number] Code Onset Dates Condition Status SNOMED Code Problem History of seizures Z87.898 Active 524995488 Problem History of high cholesterol Z86.39 Active 252865693 Problem History of [place] (myocardial infarction) I25.2 Active 315972959 Problem Bipolar 2 disorder F31.81 Active 50501283 Problem History of hypothyroidism Z86.39 Active 583534480 Problem History of hypertension Z86.79 Active 102366050 Problem Panic disorder with agoraphobia F40.01 Active 24245556 Problem senior living 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 Active 989336935 Problem Epilepsy G40.909 Active 86471342 Problem Type 2 diabetes mellitus with hyperglycemia E11.65 Active 448437911 Problem OAB (overactive bladder) N32.81 Active 330566632 Problem Mood disorder F39 Active 40328833 Problem Type 2 diabetes mellitus with hyperglycemia E11.65 Active 992094513 Problem Uncontrolled type 2 diabetes mellitus 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, without long-term 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 E11.65 Active 470699098 Problem Stress incontinence of urine N39.3 Active 08246312 Problem Bipolar I disorder with duy F31.10 Active 41334006 Problem Tobacco abuse Z72.0 Active 58411680 Problem Other chronic pain G89.29 Active 81299024 Problem Cervicalgia M54.2 Active 23548936 Problem Primary insomnia F51.01 Active 7196738 Problem Hypertension, benign I10 Active 46647048 Problem Bipolar I disorder with mood-congruent psychotic features F31.9 Active 810265522 Problem Gastritis and duodenitis K29.90 Active 932377237 Problem COPD (chronic obstructive pulmonary disease) J44.9 Active 45554645 Problem Diabetes E11.9 Active 70025714 Problem Lumbago M54.5 Active 037780290 Problem Hepatitis C B19.20 Active 25716239 Problem Hypoglycemia E16.2 Active 932471138 Problem Chronic post-traumatic stress disorder (PTSD) F43.12 Active 172177162 Problem Bilateral claudication of lower limb I73.9 Active 167442005 Problem Type 2 diabetes mellitus 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s E11.9 Active [id number] ALLERGIES No Information SOCIAL HISTORY Never Assessed PLAN OF CARE VITAL SIGNS MEDICATIONS Medication Instructions Dosage Frequency Start Date End Date Duration Status [place] 10-325 MG Orally 3 times a day 1 tablet as needed 8h March, 28 days Active RESULTS No Results PROCEDURES No Known procedures IMMUNIZATIONS No Known Immunizations MEDICAL (GENERAL) HISTORY Type Description Date Medical History Hypothyroidism Medical History High cholesterol Medical History Hypertension Medical History Brain seizure Medical History Asthma Medical History COPD Medical History Hep C -2005 Medical History [place] x 2 last in 2009 Medical History PTSD (post-traumatic stress disorder) Medical History PTSD (post-traumatic stress disorder) Surgical History tonsillectomy 1985 Surgical History partial hysterectomy 2004 Surgical History appendectomy 2004 Hospitalization History Surgery(s) only Hospitalization History pneumonia x3 days Hospitalization History Heart cath with stint 05/15/2016 Hospitalization History Diverticulitis, N/V-[facility] 01/28/17
--- OUTSIDE RECORDS SUMMARY | 2018-02-02 12:37 | XMS REPORT ---
Author Author WOODROW MCCORMICK [facility] Address [address] [place] [address] Care Team Providers Care Skate Maker Name Role Phone WOODROW MCCORMICK Unavailable PROBLEMS Type Condition ICD9-CM Code [id number] Code Onset Dates Condition Status SNOMED Code Problem History of high cholesterol Z86.39 Active 968238670 Problem History of seizures Z87.898 Active 756429478 Problem History of [place] (myocardial infarction) I25.2 Active 566971793 Problem Bipolar 2 disorder F31.81 Active 73277523 Problem History of hypothyroidism Z86.39 Active 460289264 Problem History of hypertension Z86.79 Active 435922513 Problem Chronic post-traumatic stress disorder (PTSD) F43.12 Active 715884553 Problem Panic disorder with agoraphobia F40.01 Active 21835930 Problem care home 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 Active 923233698 Problem Epilepsy G40.909 Active 91709037 Problem Type 2 diabetes mellitus with hyperglycemia E11.65 Active 620004071 Problem Uncontrolled type 2 diabetes mellitus 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, without long-term 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 E11.65 Active 834669888 Problem Mood disorder F39 Active 60081775 Problem Bipolar I disorder with duy F31.10 Active 97684887 Problem Bipolar I disorder with mood-congruent psychotic features F31.9 Active 570336530 Problem Other chronic pain G89.29 Active 38011183 Problem Cervicalgia M54.2 Active 09318667 Problem OAB (overactive bladder) N32.81 Active 743838361 Problem Hypertension, benign I10 Active 29990093 Problem Type 2 diabetes mellitus with hyperglycemia E11.65 Active 680521963 Problem Gastritis and duodenitis K29.90 Active 121895990 Problem Primary insomnia F51.01 Active 7294152 Problem Hepatitis C B19.20 Active 73228994 Problem COPD (chronic obstructive pulmonary disease) J44.9 Active 01143883 Problem Tobacco abuse Z72.0 Active 08089468 Problem Lumbago M54.5 Active 399937528 Problem Type 2 diabetes mellitus 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s E11.9 Active 319350055 Problem Hypoglycemia E16.2 Active 999497466 Problem Diabetes E11.9 Active 38779010 Problem Bilateral claudication of lower limb I73.9 Active 316539015 ALLERGIES No Information SOCIAL HISTORY Never Assessed PLAN OF CARE Activity Details Follow Up 2 Weeks Reason: VITAL SIGNS MEDICATIONS Medication Instructions Dosage Frequency Start Date End Date Duration Status Xanax 2 MG Orally Three times a day 1 tablet 8h Active RESULTS No Results PROCEDURES Procedure Date Ordered Result Body Site Psychotherapy, patient &/family, 30 minutes, established patient January 20, 2017 IMMUNIZATIONS No Known Immunizations MEDICAL (GENERAL) HISTORY Type Description Date Medical History Hypothyroidism Medical History High cholesterol Medical History Hypertension Medical History Brain seizure Medical History Asthma Medical History COPD Medical History Hep C -2005 Medical History [place] x 2 last in 2009 Medical History PTSD (post-traumatic stress disorder) Medical History PTSD (post-traumatic stress disorder) Surgical History tonsillectomy 1985 Surgical History partial hysterectomy 2004 Surgical History appendectomy 2004 Hospitalization History Surgery(s) only Hospitalization History pneumonia x3 days Hospitalization History Heart cath with stint 05/15/2016 Hospitalization History Diverticulitis, N/V-[facility] 01/28/17
--- OUTSIDE RECORDS SUMMARY | 2018-02-02 12:38 | XMS REPORT ---
Author Author GERARDO KISER [facility] Address [address] [place] [address] Care Team Providers Care Cart Attendant Name Role Phone GERARDO KISER Unavailable PROBLEMS Type Condition ICD9-CM Code [id number] Code Onset Dates Condition Status SNOMED Code Problem History of seizures Z87.898 Active 420676412 Problem History of high cholesterol Z86.39 Active 789561186 Problem Bipolar 2 disorder F31.81 Active 92374257 Problem History of hypothyroidism Z86.39 Active 119908550 Problem History of hypertension Z86.79 Active 711350159 Problem History of [place] (myocardial infarction) I25.2 Active 309235628 Problem Chronic post-traumatic stress disorder (PTSD) F43.12 Active 635453743 Problem Panic disorder with agoraphobia F40.01 Active 10772197 Problem 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 frame tender 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 Active 916891382 Problem Epilepsy G40.909 Active 90117742 Problem Type 2 diabetes mellitus with hyperglycemia E11.65 Active 630956061 Problem Uncontrolled type 2 diabetes mellitus 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, without long-term 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 E11.65 Active 031971998 Problem Mood disorder F39 Active 04430016 Problem Bipolar I disorder with duy F31.10 Active 98952461 Problem Bipolar I disorder with mood-congruent psychotic features F31.9 Active 219272720 Problem Other chronic pain G89.29 Active 93070724 Problem Cervicalgia M54.2 Active 08068601 Problem Tobacco abuse Z72.0 Active 19597074 Problem Hypertension, benign I10 Active 53175482 Problem Type 2 diabetes mellitus with hyperglycemia E11.65 Active 738990232 Problem Gastritis and duodenitis K29.90 Active 121691414 Problem Primary insomnia F51.01 Active 9386926 Problem Hepatitis C B19.20 Active 13741629 Problem COPD (chronic obstructive pulmonary disease) J44.9 Active 50022001 Problem Lumbago M54.5 Active 134739968 Problem OAB (overactive bladder) N32.81 Active 355823319 Problem Type 2 diabetes mellitus 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s E11.9 Active 851945283 Problem Hypoglycemia E16.2 Active 637607275 Problem Diabetes E11.9 Active 72842266 Problem Bilateral claudication of lower limb I73.9 Active 509680777 ALLERGIES Unknown Allergies SOCIAL HISTORY No smoking Hx information available PLAN OF CARE VITAL SIGNS MEDICATIONS Medication Instructions Dosage Frequency Start Date End Date Duration Status [place] 10-325 MG Orally 2 times a day 1 tablet as needed 12h 16 Oct, 2016 Active RESULTS No Results PROCEDURES No Known procedures IMMUNIZATIONS No Known Immunizations
--- OUTSIDE RECORDS SUMMARY | 2018-02-02 12:38 | XMS REPORT ---
Author Author GERARDO KISER [facility] Address [address] [place] [address] Care Team Providers Care Flat Folder Name Role Phone GERARDO KISER Unavailable PROBLEMS Type Condition ICD9-CM Code IGR70-KG Code Onset Dates Condition Status SNOMED Code Problem History of high cholesterol Z86.39 Active 550416982 Problem History of seizures Z87.898 Active 009593467 Problem History of [place] (myocardial infarction) I25.2 Active 031023796 Problem Bipolar 2 disorder F31.81 Active 74543172 Problem History of hypothyroidism Z86.39 Active 692498200 Problem History of hypertension Z86.79 Active 917311700 Problem Chronic post-traumatic stress disorder (PTSD) F43.12 Active 463352558 Problem Panic disorder with agoraphobia F40.01 Active 86826184 Problem 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 Active 295581172 Problem Epilepsy G40.909 Active 74428525 Problem Type 2 diabetes mellitus with hyperglycemia E11.65 Active 696310827 Problem Uncontrolled type 2 diabetes mellitus 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, without long-term 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 E11.65 Active 771245449 Problem Mood disorder F39 Active 35751139 Problem Bipolar I disorder with duy F31.10 Active 52569739 Problem Bipolar I disorder with mood-congruent psychotic features F31.9 Active 696994432 Problem Other chronic pain G89.29 Active 07637358 Problem Cervicalgia M54.2 Active 72811824 Problem OAB (overactive bladder) N32.81 Active 122889873 Problem Hypertension, benign I10 Active 30682759 Problem Type 2 diabetes mellitus with hyperglycemia E11.65 Active 436202284 Problem Gastritis and duodenitis K29.90 Active 317896015 Problem Primary insomnia F51.01 Active 8122051 Problem Hepatitis C B19.20 Active 52383308 Problem COPD (chronic obstructive pulmonary disease) J44.9 Active 87525377 Problem Tobacco abuse Z72.0 Active 83368701 Problem Lumbago M54.5 Active 279126246 Problem Type 2 diabetes mellitus 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s E11.9 Active 923424136 Problem Hypoglycemia E16.2 Active 706134990 Problem Diabetes E11.9 Active 48975888 Problem Bilateral claudication of lower limb I73.9 Active 383849881 ALLERGIES No Information SOCIAL HISTORY Never Assessed PLAN OF CARE VITAL SIGNS MEDICATIONS Medication Instructions Dosage Frequency Start Date End Date Duration Status Test strips Test Strips Contour Next YSE78-U35.9 3 times a day test 3 times per day 8h Nov, Active RESULTS No Results PROCEDURES No Known procedures IMMUNIZATIONS No Known Immunizations MEDICAL (GENERAL) HISTORY Type Description Date Medical History Hypothyroidism Medical History High cholesterol Medical History Hypertension Medical History Brain seizure Medical History Asthma Medical History COPD Medical History Hep C -2005 Medical History [place] x 2 last in 2009 Medical History PTSD (post-traumatic stress disorder) Medical History PTSD (post-traumatic stress disorder) Surgical History tonsillectomy 1985 Surgical History partial hysterectomy 2004 Surgical History appendectomy 2004 Hospitalization History Surgery(s) only Hospitalization History pneumonia x3 days Hospitalization History Heart cath with stint 05/15/2016 Hospitalization History Diverticulitis, N/V-[facility] 01/28/17
--- OUTSIDE RECORDS SUMMARY | 2018-02-02 12:38 | XMS REPORT ---
Author Author GERARDO KISER [facility] Address [address] [place] [address] Care Team Providers Care Theatrical Trouper Name Role Phone GERARDO KISER Unavailable PROBLEMS Type Condition ICD9-CM Code [id number] Code Onset Dates Condition Status SNOMED Code Problem History of seizures Z87.898 Active 471976598 Problem History of high cholesterol Z86.39 Active 454893684 Problem History of [place] (myocardial infarction) I25.2 Active 145827298 Problem Bipolar 2 disorder F31.81 Active 20900430 Problem History of hypothyroidism Z86.39 Active 488588185 Problem History of hypertension Z86.79 Active 697593569 Problem Panic disorder with agoraphobia F40.01 Active 51942081 Problem USP 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 Active 278486411 Problem Epilepsy G40.909 Active 46887827 Problem Type 2 diabetes mellitus with hyperglycemia E11.65 Active 339456367 Problem OAB (overactive bladder) N32.81 Active 967347067 Problem Mood disorder F39 Active 41117718 Problem Type 2 diabetes mellitus with hyperglycemia E11.65 Active 590609634 Problem Uncontrolled type 2 diabetes mellitus 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, without long-term 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 E11.65 Active 795414924 Problem Stress incontinence of urine N39.3 Active 94797974 Problem Bipolar I disorder with duy F31.10 Active 57646829 Problem Tobacco abuse Z72.0 Active 68381208 Problem Other chronic pain G89.29 Active 67209309 Problem Cervicalgia M54.2 Active 11135886 Problem Primary insomnia F51.01 Active 3099780 Problem Hypertension, benign I10 Active 66009244 Problem Bipolar I disorder with mood-congruent psychotic features F31.9 Active 928383180 Problem Gastritis and duodenitis K29.90 Active 241497139 Problem COPD (chronic obstructive pulmonary disease) J44.9 Active 62039136 Problem Diabetes E11.9 Active 31756092 Problem Lumbago M54.5 Active 964441776 Problem Hepatitis C B19.20 Active 60485300 Problem Hypoglycemia E16.2 Active 743543832 Problem Chronic post-traumatic stress disorder (PTSD) F43.12 Active 312569161 Problem Bilateral claudication of lower limb I73.9 Active 668176493 Problem Type 2 diabetes mellitus 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s E11.9 Active 682360008 ALLERGIES No Information SOCIAL HISTORY Never Assessed PLAN OF CARE VITAL SIGNS MEDICATIONS Unknown Medications RESULTS No Results PROCEDURES No Known procedures IMMUNIZATIONS No Known Immunizations MEDICAL (GENERAL) HISTORY Type Description Date Medical History Hypothyroidism Medical History High cholesterol Medical History Hypertension Medical History Brain seizure Medical History Asthma Medical History COPD Medical History Hep C -2005 Medical History [place] x 2 last in 2009 Medical History PTSD (post-traumatic stress disorder) Medical History PTSD (post-traumatic stress disorder) Surgical History tonsillectomy 1985 Surgical History partial hysterectomy 2004 Surgical History appendectomy 2004 Hospitalization History Surgery(s) only Hospitalization History pneumonia x3 days Hospitalization History Heart cath with stint 05/15/2016 Hospitalization History Diverticulitis, N/V-[facility] 01/28/17
--- OUTSIDE RECORDS SUMMARY | 2018-02-02 12:38 | XMS REPORT ---
Author Author GERARDO KISER [facility] Address [address] [place] [address] Care Team Providers Care Feather Duster Winder Name Role Phone GERARDO KISER Unavailable PROBLEMS Type Condition ICD9-CM Code [id number] Code Onset Dates Condition Status SNOMED Code Problem History of high cholesterol Z86.39 Active 714983014 Problem History of seizures Z87.898 Active 629657939 Problem History of [place] (myocardial infarction) I25.2 Active 316332372 Problem Bipolar 2 disorder F31.81 Active 71825328 Problem History of hypothyroidism Z86.39 Active 913882318 Problem History of hypertension Z86.79 Active 818200974 Problem Chronic post-traumatic stress disorder (PTSD) F43.12 Active 065655074 Problem Panic disorder with agoraphobia F40.01 Active 56569052 Problem 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 Active 415216408 Problem Epilepsy G40.909 Active 29451867 Problem Type 2 diabetes mellitus with hyperglycemia E11.65 Active 344383788 Problem Uncontrolled type 2 diabetes mellitus 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, without long-term 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 E11.65 Active 781153394 Problem Mood disorder F39 Active 91668162 Problem Bipolar I disorder with duy F31.10 Active 00829432 Problem Bipolar I disorder with mood-congruent psychotic features F31.9 Active 565423075 Problem Other chronic pain G89.29 Active 51591519 Problem Cervicalgia M54.2 Active 98883602 Problem OAB (overactive bladder) N32.81 Active 282564092 Problem Hypertension, benign I10 Active 40234066 Problem Type 2 diabetes mellitus with hyperglycemia E11.65 Active 425045604 Problem Gastritis and duodenitis K29.90 Active 761077287 Problem Primary insomnia F51.01 Active 8407067 Problem Hepatitis C B19.20 Active 81399733 Problem COPD (chronic obstructive pulmonary disease) J44.9 Active 71285518 Problem Tobacco abuse Z72.0 Active 14761081 Problem Lumbago M54.5 Active 929221032 Problem Type 2 diabetes mellitus 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s E11.9 Active 442889268 Problem Hypoglycemia E16.2 Active 558612396 Problem Diabetes E11.9 Active 21367036 Problem Bilateral claudication of lower limb I73.9 Active 579654837 ALLERGIES Substance Reaction Event Type Date Status Penicillin V Potassium Unknown Drug Allergy Dec, Active Metformin HCl diarrhea Drug Allergy Dec, Active SOCIAL HISTORY Never Assessed PLAN OF CARE VITAL SIGNS Height 62 in 2016-12-24 Weight 197.4 lbs 2016-12-24 Temperature 97.2 degrees Fahrenheit 2016-12-24 Heart Rate 88 bpm 2016-12-24 Respiratory Rate 22 2016-12-24 BMI 36.10 kg/m2 2016-12-24 Blood pressure systolic 110 mmHg 2016-12-24 Blood pressure diastolic 78 mmHg 2016-12-24 MEDICATIONS Medication Instructions Dosage Frequency Start Date End Date Duration Status Xanax 2 MG Orally Three times a day 1 tablet 8h Dec, 30 days Active Test strips 1 test blood sugar Aug, Active [place] 10-325 MG Orally 2 times a day 1 tablet as needed 12h Dec, 28 days Active Montelukast Sodium 10 mg Orally Once a day 1 tablet 24h Oct, 30 days Active Olanzapine 2.5 MG TAKE ONE TABLET BY MOUTH ONCE DAILY IN THE MORNING Active Levothyroxine Sodium 150 MCG Orally Once a day 1 tablet 24h Oct, Active Nebulizer 1 as directed Apr, Active MetFORMIN HCl ER 500 MG Orally twice a day with food 2 tablets Nov, Active Accu-Chek Compact Plus ... sub Q 3 times a day 1 test strip 8h Dec, Active Symbicort 160-4.5 MCG/ACT Inhalation Twice a day- rinse mouth and spit after use 2 puffs every day Apr, Active Blood Glucose Monitor 1 glucometer test blood sugar Apr, Active Test strips Test Strips Contour Next ILC14-S62.9 3 times a day test 3 times per day 8h Nov, Active NovoLog Flexpen 100 UNIT/ML ICD10: E11.9 3 times a day with meals 35 units Nov, Active Effexor XR 75 MG Orally Once a day 1 capsule 24h Apr, Active Cetirizine HCl 10 mg Orally Once a day 1 tablet 24h Jul, Jan, 30 day(s) Active Lipitor 40 mg Orally Once a day 1 tablet 24h Active Nitroglycerin 0.4 MG Sublingual 3 times a day, prn chest pain 1 tablet Dec, Active Doxepin HCl 150 MG TAKE ONE CAPSULE BY MOUTH ONCE DAILY AT BEDTIME 30 Active Zyprexa 10 MG Orally Once a day at bedtime 1 tablet Active Atenolol 25 MG Orally Once a day 1 tablet 24h 30 Active Aspirin 81 MG Orally Once a day 1 tablet 24h 13 May, 2016 30 day(s) Active Cyproheptadine HCl 4 MG Orally Once at bedtime for trauma nightmares 1 tablet Active HydrOXYzine Pamoate 50 mg Orally Take 1-2 capsules at bedtime for sleep. 1 capsule as needed 30 Active Diflucan 150 MG Orally Once a day 1 tablet 24h Dec, 1 dose Active Albuterol Sulfate 1.25 MG/3ML Inhalation 4 times a day 3 ml as needed 6h 23 Apr, 2016 Active Neurontin 300 MG Orally Three times a day 1 capsule 8h 22 Dec, 2016 30 day(s) Active Effexor XR 150 MG Orally Once a day 1 capsule 24h 28 Apr, 2016 Active ProAir HFA 108 (90 Base) MCG/ACT Inhalation 4 times a day 2 puffs as needed 6h 10 Oct, 2015 Active Levemir FlexTouch 100 UNIT/ML ICD10- E11.9 2 times a day 40 units 12h Nov, Active Ranitidine HCl 150 MG Orally Twice a day 1 tablet at bedtime 12h 26 Nov, 2016 30 day(s) Active RESULTS No Results PROCEDURES Procedure Date Ordered Result Body Site TORADOL (IM) 60 MG/2ML (UP TO 15 MG) Dec 24, 2016 THER/PROPH/DIAG INJ, SC/IM Dec 24, 2016 IMMUNIZATIONS Vaccine Route Administration Date Status TORADOL (IM) 60 MG/2ML (UP TO 15 MG) IM Intramuscular Dec 24, 2016 Administered MEDICAL (GENERAL) HISTORY Type Description Date Medical [...]
--- OUTSIDE RECORDS SUMMARY | 2018-02-02 12:39 | XMS REPORT ---
Author Author WOODROW MCCORMICK [facility] Address [address] [place] [address] Care Team Providers Care Floor Molder Name Role Phone WOODROW MCCORMICK Unavailable PROBLEMS Type Condition ICD9-CM Code [id number] Code Onset Dates Condition Status SNOMED Code Problem History of seizures Z87.898 Active 077912084 Problem History of high cholesterol Z86.39 Active 537096715 Problem History of MD (myocardial infarction) I25.2 Active 266965633 Problem Bipolar 2 disorder F31.81 Active 78299322 Problem History of hypothyroidism Z86.39 Active 303835009 Problem History of hypertension Z86.79 Active 111252561 Problem Panic disorder with agoraphobia F40.01 Active 83376244 Problem skilled nursing 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 Active 190496554 Problem Epilepsy G40.909 Active 94915687 Problem Type 2 diabetes mellitus with hyperglycemia E11.65 Active 815782625 Problem OAB (overactive bladder) N32.81 Active 284880546 Problem Mood disorder F39 Active 89841893 Problem Type 2 diabetes mellitus with hyperglycemia E11.65 Active 094391499 Problem Uncontrolled type 2 diabetes mellitus 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, without long-term 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 E11.65 Active 125705877 Problem Stress incontinence of urine N39.3 Active 40562623 Problem Bipolar I disorder with duy F31.10 Active 60545178 Problem Tobacco abuse Z72.0 Active 49438321 Problem Other chronic pain G89.29 Active 20111296 Problem Cervicalgia M54.2 Active 03559893 Problem Primary insomnia F51.01 Active 4781248 Problem Hypertension, benign I10 Active 59195447 Problem Bipolar I disorder with mood-congruent psychotic features F31.9 Active 165679331 Problem Gastritis and duodenitis K29.90 Active 684730231 Problem COPD (chronic obstructive pulmonary disease) J44.9 Active 54336025 Problem Diabetes E11.9 Active 15890190 Problem Lumbago M54.5 Active 544504876 Problem Hepatitis C B19.20 Active 20686307 Problem Hypoglycemia E16.2 Active 863693843 Problem Chronic post-traumatic stress disorder (PTSD) F43.12 Active 257268603 Problem Bilateral claudication of lower limb I73.9 Active 908362264 Problem Type 2 diabetes mellitus 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s E11.9 Active 439897792 ALLERGIES Substance Reaction Event Type Date Status Penicillin V Potassium Unknown Drug Allergy March, Active Metformin HCl diarrhea Drug Allergy March, Active Fentanyl halucinations/insomnia Drug Allergy March, Active SOCIAL HISTORY Never Assessed PLAN OF CARE Activity Details Follow Up 2 Months Reason:depression, bipolar VITAL SIGNS MEDICATIONS Unknown Medications RESULTS No Results PROCEDURES Procedure Date Ordered Result Body Site Psychotherapy, patient &/family, 30 minutes, established patient March 13, 2017 IMMUNIZATIONS No Known Immunizations MEDICAL (GENERAL) HISTORY Type Description Date Medical History Hypothyroidism Medical History High cholesterol Medical History Hypertension Medical History Brain seizure Medical History Asthma Medical History COPD Medical History Hep C -2004 Medical History MD x 2 last in 2009 Medical History PTSD (post-traumatic stress disorder) Medical History PTSD (post-traumatic stress disorder) Surgical History tonsillectomy 1985 Surgical History partial hysterectomy 2004 Surgical History appendectomy 2004 Hospitalization History Surgery(s) only Hospitalization History pneumonia x3 days Hospitalization History Heart cath with stint 05/15/2016 Hospitalization History Diverticulitis, N/V-[facility] 01/28/17
--- OUTSIDE RECORDS SUMMARY | 2018-02-02 12:39 | XMS REPORT ---
Author Author GERARDO KISER [facility] Address [address] [place] [address] Care Team Providers Care Phlebotomy Lab Assistant Name Role Phone GERARDO KISER Unavailable PROBLEMS Type Condition ICD9-CM Code [id number] Code Onset Dates Condition Status SNOMED Code Problem History of high cholesterol Z86.39 Active 934285776 Problem History of seizures Z87.898 Active 613065216 Problem History of [place] (myocardial infarction) I25.2 Active 765007159 Problem Bipolar 2 disorder F31.81 Active 99188181 Problem History of hypothyroidism Z86.39 Active 374201850 Problem History of hypertension Z86.79 Active 817909053 Problem Chronic post-traumatic stress disorder (PTSD) F43.12 Active 322290732 Problem Panic disorder with agoraphobia F40.01 Active 89368961 Problem manager 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 Active 200322539 Problem Epilepsy G40.909 Active 11042102 Problem Type 2 diabetes mellitus with hyperglycemia E11.65 Active 193352043 Problem Uncontrolled type 2 diabetes mellitus 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, without long-term 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 E11.65 Active 771390701 Problem Mood disorder F39 Active 33995495 Problem Bipolar I disorder with duy F31.10 Active 72433163 Problem Bipolar I disorder with mood-congruent psychotic features F31.9 Active 143895829 Problem Other chronic pain G89.29 Active 86144582 Problem Cervicalgia M54.2 Active 78391592 Problem OAB (overactive bladder) N32.81 Active 308174694 Problem Hypertension, benign I10 Active 54507980 Problem Type 2 diabetes mellitus with hyperglycemia E11.65 Active 578956198 Problem Gastritis and duodenitis K29.90 Active 380782302 Problem Primary insomnia F51.01 Active 4858574 Problem Hepatitis C B19.20 Active 88255195 Problem COPD (chronic obstructive pulmonary disease) J44.9 Active 78120387 Problem Tobacco abuse Z72.0 Active 30898769 Problem Lumbago M54.5 Active 671658721 Problem Type 2 diabetes mellitus 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s E11.9 Active 111662811 Problem Hypoglycemia E16.2 Active 482159991 Problem Diabetes E11.9 Active 08644808 Problem Bilateral claudication of lower limb I73.9 Active 388143499 ALLERGIES No Information SOCIAL HISTORY Never Assessed PLAN OF CARE VITAL SIGNS MEDICATIONS Medication Instructions Dosage Frequency Start Date End Date Duration Status Levemir FlexTouch 100 UNIT/ML ICD10- E11.9 2 times a day 60 units 12h Nov, Active NovoLog Flexpen 100 UNIT/ML ICD10: E11.9 3 times a day with meals 50 units Nov, Active RESULTS No Results PROCEDURES No [...]
--- OUTSIDE RECORDS SUMMARY | 2018-02-02 12:39 | XMS REPORT ---
Author Author GERARDO KISER [facility] Address [address] [place] [address] Care Team Providers Care Isotope Technician Name Role Phone GERARDO KISER Unavailable PROBLEMS Type Condition ICD9-CM Code [id number] Code Onset Dates Condition Status SNOMED Code Problem History of high cholesterol Z86.39 Active 475853609 Problem History of seizures Z87.898 Active 226712642 Problem History of [place] (myocardial infarction) I25.2 Active 372336654 Problem Bipolar 2 disorder F31.81 Active 68468484 Problem History of hypothyroidism Z86.39 Active 466502188 Problem History of hypertension Z86.79 Active 908352647 Problem Chronic post-traumatic stress disorder (PTSD) F43.12 Active 756400258 Problem Panic disorder with agoraphobia F40.01 Active 30393983 Problem terminologist 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 Active 169290205 Problem Epilepsy G40.909 Active 12622730 Problem Type 2 diabetes mellitus with hyperglycemia E11.65 Active 791342078 Problem Uncontrolled type 2 diabetes mellitus 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, without long-term 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 E11.65 Active 356630856 Problem Mood disorder F39 Active 35727101 Problem Bipolar I disorder with duy F31.10 Active 00568464 Problem Bipolar I disorder with mood-congruent psychotic features F31.9 Active 153997141 Problem Other chronic pain G89.29 Active 02386273 Problem Cervicalgia M54.2 Active 87663098 Problem OAB (overactive bladder) N32.81 Active 737019357 Problem Hypertension, benign I10 Active 99535221 Problem Type 2 diabetes mellitus with hyperglycemia E11.65 Active 785238502 Problem Gastritis and duodenitis K29.90 Active 669785020 Problem Primary insomnia F51.01 Active 7355068 Problem Hepatitis C B19.20 Active 14460352 Problem COPD (chronic obstructive pulmonary disease) J44.9 Active 45074747 Problem Tobacco abuse Z72.0 Active 93763602 Problem Lumbago M54.5 Active 034478805 Problem Type 2 diabetes mellitus 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s E11.9 Active 602061947 Problem Hypoglycemia E16.2 Active 222978201 Problem Diabetes E11.9 Active 04936362 Problem Bilateral claudication of lower limb I73.9 Active 183389524 ALLERGIES Unknown Allergies SOCIAL HISTORY No smoking Hx information available PLAN OF CARE VITAL SIGNS MEDICATIONS Medication Instructions Dosage Frequency Start Date End Date Duration Status NovoLog Flexpen 100 UNIT/ML Subcutaneous 3 times a day with meals 25 units Nov, Active Levemir FlexTouch 100 UNIT/ML Subcutaneous 2 times a day 40 units 12h Nov, Active MetFORMIN HCl ER 500 MG Orally twice a day with food 2 tablets Nov, Active RESULTS No Results PROCEDURES No Known procedures IMMUNIZATIONS No Known Immunizations
--- OUTSIDE RECORDS SUMMARY | 2018-02-02 12:39 | XMS REPORT ---
Author Author FRANK LUNA [facility] Address [address] [place] [address] Care Team Providers Care Director Of Search Engine Marketing Name Role Phone FRANK LUNA Unavailable PROBLEMS Type Condition ICD9-CM Code [id number] Code Onset Dates Condition Status SNOMED Code Problem History of seizures Z87.898 Active 969182467 Problem History of high cholesterol Z86.39 Active 471373788 Problem Bipolar 2 disorder F31.81 Active 14941412 Problem History of hypothyroidism Z86.39 Active 688784918 Problem History of hypertension Z86.79 Active 294802138 Problem History of [place] (myocardial infarction) I25.2 Active 549666390 Problem Chronic post-traumatic stress disorder (PTSD) F43.12 Active 469779077 Problem Panic disorder with agoraphobia F40.01 Active 06143402 Problem equipment sales specialist 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 Active 179840025 Problem Epilepsy G40.909 Active 28910168 Problem Type 2 diabetes mellitus with hyperglycemia E11.65 Active 399570442 Problem Uncontrolled type 2 diabetes mellitus 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, without long-term 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 E11.65 Active 937423779 Problem Mood disorder F39 Active 40070340 Problem Bipolar I disorder with duy F31.10 Active 91343353 Problem Bipolar I disorder with mood-congruent psychotic features F31.9 Active 993697621 Problem Other chronic pain G89.29 Active 03967746 Problem Cervicalgia M54.2 Active 01010474 Problem Tobacco abuse Z72.0 Active 66373761 Problem Hypertension, benign I10 Active 19732502 Problem Type 2 diabetes mellitus with hyperglycemia E11.65 Active 561236730 Problem Gastritis and duodenitis K29.90 Active 169146916 Problem Primary insomnia F51.01 Active 6205141 Problem Hepatitis C B19.20 Active 14989290 Problem COPD (chronic obstructive pulmonary disease) J44.9 Active 67031144 Problem Lumbago M54.5 Active 551438339 Problem OAB (overactive bladder) N32.81 Active 129514289 Problem Type 2 diabetes mellitus 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s E11.9 Active 150454887 Problem Hypoglycemia E16.2 Active 384791994 Problem Diabetes E11.9 Active 71075992 Problem Bilateral claudication of lower limb I73.9 Active 494340504 ALLERGIES Unknown Allergies SOCIAL HISTORY No smoking Hx information available PLAN OF CARE VITAL SIGNS MEDICATIONS Unknown Medications RESULTS No Results PROCEDURES No Known procedures IMMUNIZATIONS No Known Immunizations
--- OUTSIDE RECORDS SUMMARY | 2018-02-02 12:39 | XMS REPORT ---
Author Author GERARDO KISER [facility] Address [address] [place] [address] Care Team Providers Care Team Lead Name Role Phone GERARDO KISER Unavailable PROBLEMS Type Condition ICD9-CM Code [id number] Code Onset Dates Condition Status SNOMED Code Problem History of high cholesterol Z86.39 Active 167880901 Problem History of seizures Z87.898 Active 999539836 Problem History of [place] (myocardial infarction) I25.2 Active 078628402 Problem Bipolar 2 disorder F31.81 Active 62653058 Problem History of hypothyroidism Z86.39 Active 476145656 Problem History of hypertension Z86.79 Active 849060113 Problem Chronic post-traumatic stress disorder (PTSD) F43.12 Active 259275872 Problem Panic disorder with agoraphobia F40.01 Active 40498482 Problem 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 Active 943460530 Problem Epilepsy G40.909 Active 38354364 Problem Type 2 diabetes mellitus with hyperglycemia E11.65 Active 423616087 Problem Uncontrolled type 2 diabetes mellitus 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, without long-term 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 E11.65 Active 614719741 Problem Mood disorder F39 Active 75753072 Problem Bipolar I disorder with duy F31.10 Active 25860470 Problem Bipolar I disorder with mood-congruent psychotic features F31.9 Active 729108412 Problem Other chronic pain G89.29 Active 71452933 Problem Cervicalgia M54.2 Active 11229792 Problem OAB (overactive bladder) N32.81 Active 891523009 Problem Hypertension, benign I10 Active 46434490 Problem Type 2 diabetes mellitus with hyperglycemia E11.65 Active 936480075 Problem Gastritis and duodenitis K29.90 Active 754114292 Problem Primary insomnia F51.01 Active 8597070 Problem Hepatitis C B19.20 Active 68821477 Problem COPD (chronic obstructive pulmonary disease) J44.9 Active 74604769 Problem Tobacco abuse Z72.0 Active 24421835 Problem Lumbago M54.5 Active 626946650 Problem Type 2 diabetes mellitus 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s E11.9 Active 590239055 Problem Hypoglycemia E16.2 Active 798897803 Problem Diabetes E11.9 Active 34232626 Problem Bilateral claudication of lower limb I73.9 Active 176699465 ALLERGIES No Information SOCIAL HISTORY Never Assessed PLAN OF CARE VITAL SIGNS MEDICATIONS Medication Instructions Dosage Frequency Start Date End Date Duration Status Levemir FlexTouch 100 UNIT/ML ICD10- E11.9 2 times a day 40 units 12h Nov, Active NovoLog Flexpen 100 UNIT/ML ICD10: E11.9 3 times a day with meals 35 units Nov, Active RESULTS No Results PROCEDURES No Known procedures IMMUNIZATIONS No Known Immunizations MEDICAL (GENERAL) HISTORY Type Description Date Medical History Hypothyroidism Medical History High cholesterol Medical History Hypertension Medical History Brain seizure Medical History Asthma Medical History COPD Medical History Hep C -2005 Medical History [place] x 2 last in 2009 Medical History PTSD (post-traumatic stress disorder) Medical History PTSD (post-traumatic stress disorder) Surgical History tonsillectomy 1985 Surgical History partial hysterectomy 2004 Surgical History appendectomy 2004 Hospitalization History Surgery(s) only Hospitalization History pneumonia x3 days Hospitalization History Heart cath with stint 05/15/2016 Hospitalization History Diverticulitis, N/V-[facility] 01/28/17
--- OUTSIDE RECORDS SUMMARY | 2018-02-02 12:40 | XMS REPORT ---
Author Author FRANK LUNA [facility] Address [address] [place] [address] Care Team Providers Care Asset Protection Lead Name Role Phone FRANK LUNA Unavailable PROBLEMS Type Condition ICD9-CM Code MKR66-AV Code Onset Dates Condition Status SNOMED Code Problem History of high cholesterol Z86.39 Active 803436962 Problem History of PA (myocardial infarction) I25.2 Active 778357655 Problem History of seizures Z87.898 Active 166640614 Problem Bipolar 2 disorder F31.81 Active 36301739 Problem History of hypothyroidism Z86.39 Active 694796464 Problem History of hypertension Z86.79 Active 378718832 Problem Panic disorder with agoraphobia F40.01 Active 15334492 Problem Epilepsy G40.909 Active 92393965 Problem Type 2 diabetes mellitus with hyperglycemia E11.65 Active 888347749 Problem OAB (overactive bladder) N32.81 Active 617009936 Problem Mood disorder F39 Active 53118300 Problem Cervicalgia M54.2 Active 33554965 Problem Uncontrolled type 2 diabetes mellitus 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, without long-term 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 E11.65 Active 456087490 Problem Hypertension, benign I10 Active 58467652 Problem Type 2 diabetes mellitus with hyperglycemia E11.65 Active 224941874 Problem Seasonal allergic rhinitis due to other allergic trigger J30.89 Active 815455059 Problem Stress incontinence of urine N39.3 Active 93668929 Problem Lumbago M54.5 Active 262280069 Problem Tobacco abuse Z72.0 Active 86230141 Problem Other chronic pain G89.29 Active 66756316 Problem Gastritis and duodenitis K29.90 Active 527866700 Problem Primary insomnia F51.01 Active 3613958 Problem Bipolar I disorder with duy F31.10 Active 18470692 Problem Bipolar I disorder with mood-congruent psychotic features F31.9 Active 795751124 Problem Diabetes E11.9 Active 75878712 Problem Bilateral claudication of lower limb I73.9 Active 835936274 Problem Hepatitis C B19.20 Active 44744663 Problem COPD (chronic obstructive pulmonary disease) J44.9 Active 13362512 Problem Chronic post-traumatic stress disorder (PTSD) F43.12 Active 725304088 Problem 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 Active 831393200 Problem Type 2 diabetes mellitus 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s E11.9 Active 181750781 Problem Hypoglycemia E16.2 Active 710132810 ALLERGIES No Information ENCOUNTERS Encounter Location Date Diagnosis [place] [address] 22926- 0926 18 Jan, 2018 [place] [address] 98019- 8553 17 Jan, 2018 [place] [address] 38983- 0739 11 Jan, 2018 [facility] [address] [id number] 16 Dec, 2017 Dental examination Z01.20 [place] [address] 36920- 4910 15 Dec, 2017 Acute pain of right knee M25.561 [place] [address] 71741- 7324 14 Dec, 2017 [place] [address] 36297- 2070 14 Dec, 2017 [place] [address] 84442- 6359 14 Dec, 2017 Lumbago M54.5 ; Acute pain of right knee M25.561 and Seasonal allergic rhinitis due to other allergic trigger J30.89 [place] [address] 49086- 8583 12 Dec, 2017 Type 2 diabetes mellitus with hyperglycemia E11.65 [place] [address] 96799- 8149 08 Dec, 2017 [place] [address] 60213- 0913 Dec, [facility] [address] [address] 0142 Dec, [facility] [address] [place] [id number] [place] [address] 59927- 1751 Dec, [facility] [address] [place] [id number] [place] [address] 38446- 5175 Dec, Chronic post-traumatic stress disorder (PTSD) F43.12 and Panic disorder with agoraphobia F40.01 [facility] [address] [place] [address] 29278- 1826 13 Dec, 2017 Low back pain M54.5 [facility] [address] [place] [id number] [place] [address] 26312- 5667 12 Dec, 2017 Type 2 diabetes mellitus with hyperglycemia E11.65 ; 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 ; Low back pain M54.5 ; Other chronic pain G89.29 and Encounter for therapeutic drug level monitoring Z51.81 [facility] [address] [place] [id number] [place] [address] 39019- 9723 09 Dec, 2017 Coughing R05 [facility] [address] [place] [id number] [place] [address] 60951- 2382 09 Dec, 2017 [facility] [address] [place] [address] [id number] 07 Dec, 2017 Dental examination Z01.20 [facility] [address] [place] [id number] [place] [address] 20192- 0982 Nov, Type 2 diabetes mellitus 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s E11.9 and Encounter for therapeutic drug level monitoring Z51.81 [facility] [address] [place] [id number] [place] [address] 86212- 6317 Nov, [facility] [address] [place] [id number] [place] [address] 73325- 9103 Oct, Type 2 diabetes mellitus 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s E11.9 [facility] [address] [place] [address]- 5773 Oct, Type 2 diabetes mellitus with hyperglycemia E11.65 [facility] [address] [place] [id number] [place] [address] 64959- 5902 Aug, Type 2 diabetes mellitus 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s E11.9 [facility] [address] [place] [id number] [place] [address] 01750- 0235 Aug, Type 2 diabetes mellitus 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s E11.9 ; Hypoglycemia E16.2 ; Lumbago M54.5 ; Stress incontinence of urine N39.3 and History of PA (myocardial infarction) I25.2 [facility] [address] [place] [id number] [place] [address] 62602- 8004 Jun, [facility] [address] [place] [id number] [place] [address] 71243- 0190 May, [facility] [address] [place] [id number] [place] [address] 88410- 3397 Apr, Panic disorder with agoraphobia F40.01 [facility] [address] [place] [id number] [place] [address] 04853- 5400 Apr, Panic disorder with agoraphobia F40.01 [facility] [address] [place] [id number] [place] [address] 96660- 5311 Apr, [facility] [address] [place] [id number] [place] [address] 11154- 8076 March, Other chronic pain G89.29 [facility] [address] [place] [id number] [address] 4388 March, [facility] [address] [place] [id number] [place] [address] 21144- 7336 March, [facility] [address] [place] [id number] [place] [address] 51688- 4156 March, [facility] [address] [place] [id number] [address]- 9714 March, [facility] [address] [address] 0939 18 Mar, 2017 Type 2 diabetes mellitus 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s E11.9 [place] [address] [place] [id number] [place] [address] 33931- 2716 16 Mar, 2017 Diarrhea, unspecified type R19.7 [place] [address] [place] [id number] [place] [address] 68403- 8298 March, Bipolar 2 disorder F31.81 ; Chronic post-traumatic stress disorder (PTSD) F43.12 and Type 2 diabetes mellitus with hyperglycemia E11.65 [place] [address] [place] [id number] [place] [address] 17042- 2749 March, [place] [address] [place] [id number] [place] [address] 88552- 4649 March, [place] [address] [place] [id number] [place] [address] 30300- 7179 March, Hypertension, benign I10 ; Type 2 diabetes mellitus with hyperglycemia E11.65 ; Hepatitis C B19.20 ; Gastritis and duodenitis K29.90 and Dysuria R30.0 [place] [address] [place] [id number] [place] [address] 31660- 2135 March, Hypertension, benign I10 ; Type 2 diabetes mellitus with hyperglycemia E11.65 ; Hepatitis C B19.20 ; Gastritis and duodenitis K29.90 and Dysuria R30.0 [place] [address] [place] [id number] [place] [address] 41648- 0554 March, Panic disorder with agoraphobia F40.01 ; Chronic post- traumatic stress disorder (PTSD) F43.12 ; Epilepsy G40.909 and Bipolar I disorder with mood-congruent psychotic features F31.9 [place] [address] [place] [id number] [place] [address] 27434- 4973 March, [place] [address] [place] [id number] [place] [address] 89647- 1214 March, Type 2 diabetes mellitus with hyperglycemia E11.65 [place] [address] [place] [address] 86938- 2280 18 Jan, 2017 Bipolar I disorder with duy F31.10 [facility] [address] [place] [id number] [place] [address] 90707- 0343 17 Jan, 2017 Bipolar 2 disorder F31.81 ; Chronic post-traumatic stress disorder (PTSD) F43.12 and Type 2 diabetes mellitus with hyperglycemia E11.65 [place] [address] [place] [id number] [place] [address] 78079- 7732 17 Jan, 2017 [place] [address] [place] [id number] [place] [address] 39945- 9740 Jan, [place] [address] [place] [id number] [place] [address] 98372- 6422 14 Jan, 2017 Panic disorder with agoraphobia F40.01 [place] [address] [place] [id number] [place] [address] 28440- 7768 13 Jan, 2017 Panic disorder with agoraphobia F40.01 ; Bipolar I disorder with mood-congruent psychotic features F31.9 ; Chronic post-traumatic stress disorder (PTSD) F43.12 and Epilepsy G40.909 [place] [address] [place] [id number] [place] [address] 57401- 1191 Jan, [place] [address] [place] [id number] [place] [address] 55394- 6075 Jan, [place] [address] [place] [id number] [place] [address] 62202- 6670 10 Jan, 2017 Type 2 diabetes mellitus 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s E11.9 and Hypoglycemia E16.2 [place] [address] [place] [id number] [place] [address] 76555- 2167 07 Jan, 2017 Type 2 diabetes mellitus 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s E11.9 ; Primary insomnia F51.01 and Hypertension, benign I10 [place] [address] [place] [id number] [place] [address] 06704- 6631 06 Jan, 2017 [facility] [address] [place] [id number] [place] [address] [id number] Jan, [facility] [address] [place] [address] 59393- 2062 Dec, Type 2 diabetes mellitus with hyperglycemia E11.65 [facility] [address] [place] [address] 69943- 9747 Dec, [facility] [address] [place] [id number] [place] [address] 76063- 2517 Dec, Bipolar 2 disorder F31.81 ; Panic disorder with agoraphobia F40.01 ; Chronic post-traumatic stress disorder (PTSD) F43.12 and Epilepsy G40.909 [place] [address] [place] [id number] [place] [address] 76821- 9178 Dec, [place] [address] [place] [id number] [place] [address] 56094- 7025 Dec, [facility] [address] [place] [id number] [place] [address] 06122- 8287 Dec, Bipolar 2 disorder F31.81 ; Panic disorder with agoraphobia F40.01 ; Chronic post-traumatic stress disorder (PTSD) F43.12 and Epilepsy G40.909 [place] [address] [place] [address] 58274- 7229 Dec, [facility] [address] [address]- 1165 Dec, [facility] [address] [place] [id number] [place] [address] 98164- 4359 Dec, [facility] [address] [place] [address] 48876- 0722 Dec, Type 2 diabetes mellitus with hyperglycemia E11.65 ; jail 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 and Lumbago M54.5 [facility] [address] [place] [address] 99763- 1718 Dec, [facility] [address] [place] [id number] [place] [address] 2546 Dec, [facility] [address] [place] [address] 14405- 3748 Dec, [facility] [address] [place] [id number] [place] [address] 05082 -9371 Dec, Pain of left leg M79.605 and Pain in right leg M79.604 [facility] [address] [place] [id number] [place] [address] 32994- 3182 Dec, [facility] [address] [place] [id number] [place] [address] 00605- 7681 Dec, Type 2 diabetes mellitus with hyperglycemia E11.65 [place] [address] [place] [id number] [place] [address] 70781- 5814 Dec, [place] [address] [place] [id number] [place] [address] 44930- 4862 Dec, Type 2 diabetes mellitus with hyperglycemia E11.65 ; jail 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 ; Vagina, candidiasis B37.3 and Other chronic pain G89.29 [place] [address] 36923- 4494 Nov, Panic disorder with agoraphobia F40.01 [place] [address] [place] [id number] [place] [address] 32083- 6053 Nov, [place] [address] [place] [id number] [place] [address] 51781- 3852 Nov, [place] [address] [place] [id number] [place] [address] 08445- 1199 Nov, Hypoglycemia E16.2 [place] [address] [place] [id number] [place] [address] 88429- 8115 Nov, [place] [address] [place] [id number] [place] [address] 72218- 8633 Nov, [place] [address] [place] [id number] [place] [address] 37778- 0863 Nov, [facility] [address] [address]- 3684 Nov, Type 2 diabetes mellitus with hyperglycemia E11.65 and 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 [facility] [address] [address]- 2743 Nov, Panic disorder with agoraphobia F40.01 ; Bipolar 2 disorder F31.81 ; Chronic post-traumatic stress disorder (PTSD) F43.12 and Epilepsy G40.909 [facility] [address] [address]- 4743 Nov, Panic disorder with agoraphobia F40.01 [facility] [address] [place] [address] 56141- 1304 Oct, [facility] [address] [place] [id number] [place] [address] 18131- 5198 Oct, [facility] [address] [place] [address] 09629- 7523 Oct, Bipolar 2 disorder F31.81 ; Panic disorder with agoraphobia F40.01 and Mood disorder F39 [facility] [address] [address]- 6208 Oct, Diabetes E11.9 ; Type 2 diabetes mellitus with hyperglycemia E11.65 and 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 [facility] [address] [address]- 0643 Oct, [facility] [address] [address]- 9883 Sep, [facility] [address] [place] [address] 65269- 0210 Sep, Bipolar 2 disorder F31.81 and Mood disorder F39 [facility] [address] [place] [address] 98586- 4785 Sep, [facility] [address] [address]- 1051 Sep, Uncontrolled type 2 diabetes mellitus 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, without long-term 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 E11.65 [facility] [address] [address]- 6118 Sep, [facility] [address] [place] [id number] [place] [address] 53173- 4047 Sep, [facility] [address] [place] [id number] [place] [address] 32414- 1652 Sep, [facility] [address] [place] [id number] [place] [address] 65047- 3786 Sep, [facility] [address] [place] [id number] [place] [address] 11552- 6633 Sep, Bipolar 2 disorder F31.81 ; Chronic post-traumatic stress disorder (PTSD) F43.12 ; Panic disorder with agoraphobia F40.01 and Epilepsy G40.909 [place] [address] [place] [address] 69456- 7880 Sep, Bipolar 2 disorder F31.81 ; PTSD (post-traumatic stress disorder) F43.10 and Panic disorder with agoraphobia F40.01 [facility] [address] [address]- 3616 Sep, [facility] [address] [place] [id number] [place] [address] 12573- 1503 Aug, History of seizures Z87.898 ; Panic disorder with agoraphobia F40.01 and Bipolar 2 disorder F31.81 [facility] [address] [place] [id number] [place] [address] 29753- 7305 Aug, [facility] [address] [place] [id number] [place] [address] 35999- 7602 17 Aug, 2016 [facility] [address] [place] [id number] [place] [address] 91533- 0102 Aug, [facility] [address] [place] [id number] [place] [address] 25488- 6489 Aug, [facility] [address] [place] [id number] [place] [address] 91591- 6506 Aug, [facility] [address] [place] [id number] [place] [address] 71699- 9970 Aug, [facility] [address] 33198- 8912 Aug, Hypoglycemia E16.2 and Bilateral impacted cerumen H61.23 [facility] [address] 34776- 8107 Aug, [facility] [address] [place] [id number] [place] [address] 97831- 7637 Jul, [facility] [address] [place] [id number] [place] [address] 63925- 1009 Jul, [facility] [address] [place] [id number] [place] [address] 50322- 5252 15 Jul, 2016 Bipolar 2 disorder F31.81 ; Panic disorder with agoraphobia F40.01 ; PTSD (post-traumatic stress disorder) F43.10 and Epilepsy G40.909 [facility] [address] [place] [id number] [place] [address] 46121- 2910 Jul, [facility] [address] [place] [id number] [place] [address] 29556- 7229 Jul, Type 2 diabetes mellitus 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s E11.9 and Coughing R05 [facility] [address] [place] [id number] [place] [address] 13719- 5504 Jul, [facility] [address] [place] [id number] [place] [address] 68122- 2655 Jun, [facility] [address] [place] [id number] [place] [address] 95414- 7940 Jun, Bipolar 2 disorder F31.81 ; PTSD (post-traumatic stress disorder) F43.10 and Panic disorder with agoraphobia F40.01 [facility] [address] [address]- 0817 Jun, [facility] [address] [place] [id number] [place] [address] 52850- 4697 Jun, [facility] [address] [place] [id number] [place] [address] 75966- 5235 Jun, [facility] [address] [place] [id number] [place] [address] 43766- 6621 Jun, Type 2 diabetes mellitus 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s E11.9 and COPD (chronic obstructive pulmonary disease) J44.9 [facility] [address] [place] [id number] [place] [address] [id number] May, Dental examination Z01.20 and Dental caries K02.9 [place] [address] [place] [id number] [place] [address] 91595- 7227 May, Bipolar 2 disorder F31.81 ; PTSD (post-traumatic stress disorder) F43.10 and Panic disorder with agoraphobia F40.01 [place] [address] [place] [address] 60843- 5824 May, Lumbago with sciatica, right side M54.41 ; Other chronic pain G89.29 and Uncontrolled type 2 diabetes mellitus 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, without long-term 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 E11.65 [facility] [address] [place] [id number] [place] [address] 82061- 2040 May, Chronic bronchitis, unspecified chronic bronchitis type J42 [facility] [address] [place] [address] 91117- 1406 May, [facility] [address] [place] [id number] [place] [address] 20897- 5583 May, [facility] [address] [place] [address] 22618- 9303 May, Chest pain, unspecified type R07.9 ; Tobacco use Z72.0 ; Type 2 diabetes mellitus 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s E11.9 ; Essential hypertension I10 ; Hyperlipidemia, unspecified hyperlipidemia type E78.5 ; Obesity (BMI 30- 39.9) E66.9 ; History of hypothyroidism Z86.39 ; Chronic obstructive pulmonary disease, unspecified COPD type J44.9 ; Anxiety F41.9 ; Bilateral claudication of lower limb I73.9 and Bipolar 2 disorder F31.81 [place] [address] 21016- 1787 05 May, 2016 Bipolar 2 disorder F31.81 ; Panic disorder with agoraphobia F40.01 and Tobacco abuse Z72.0 [place] [address] 73273- 6843 Apr, [place] [address] 72547- 4700 Apr, [place] [address] 90735- 0684 Apr, [place] [address] [place] [id number] [place] [address] 34472- 2083 Apr, Bipolar 2 disorder F31.81 ; Panic disorder with agoraphobia F40.01 and PTSD (post-traumatic stress disorder) F43.10 [place] [address] [place] [id number] [place] [address] 19156- 5137 Apr, Chronic bronchitis, unspecified chronic bronchitis type J42 ; Cervical neuritis M54.12 and Thoracic neuritis M54.14 [place] [address] [place] [id number] [place] [address] 37547- 2993 Apr, [place] [address] [place] [id number] [place] [address] 10537- 8557 Apr, Cervicalgia M54.2 [place] [address] [place] [id number] [place] [address] 63965- 9797 Apr, Bipolar 2 disorder F31.81 ; Panic disorder with agoraphobia F40.01 and PTSD (post-traumatic stress disorder) F43.10 [facility] [address] [place] [id number] [place] [address] 36095 -7358 13 Apr, 2016 [facility] [address] [place] [address] [id number] [place] [address] 54073 -2788 09 Apr, 2016 Cough R05 and Tobacco dependence F17.200 [facility] [address] [place] [id number] [place] [address] 03997- 3145 Apr, [place] [address] 39990- 9160 Apr, [place] [address] [place] [id number] [place] [address] 40487- 2587 March, Bipolar 2 disorder F31.81 ; Panic disorder with agoraphobia F40.01 and Generalized anxiety disorder F41.1 [place] [address] [place] [id number] [place] [address] 59944- 8719 March, Closed displaced fracture of fifth metatarsal bone of right foot with routine healing, subsequent encounter S92.351D [place] [address] [place] [id number] [place] [address] 06798- 7491 March, Bronchitis J40 [place] [address] 13171- 6820 March, [place] [address] [place] [id number] [place] [address] 47994- 4507 March, [place] [address] [place] [id number] [place] [address]- [address] March, Foot pain, right M79.671 ; Cervicalgia M54.2 and 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 mellitus 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, 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01 and Epilepsy G40.909 [place] [address] [address]- [address] Jan, History of [place] (myocardial infarction) I25.2 and History of high cholesterol Z86.39 [place] [address] [address] Jan, Bipolar 2 disorder F31.81 ; Panic disorder with agoraphobia F40.01 ; Tobacco abuse Z72.0 and PTSD (post-traumatic stress disorder) F43.10 [place] [address] [address] Jan, Fracture of fifth metatarsal bone of right foot S92.351A [place] [address] [address] Jan, [place] [address] [address] Jan, History of high cholesterol Z86.39 [place] [address] [place] [id number] [place] [address]- 9426 Jan, History of [place] (myocardial infarction) I25.2 [place] [address] [address] Jan, [place] [address] [address] Dec, Back pain M54.9 ; Diabetes E11.9 ; Right knee pain M25.561 and Chest pain R07.[address] [place] [address] Dec, [facility] [address] [place] [id number] [place] [address]67- 8652 Dec, [facility] [address] [address] Dec, Cervicalgia M54.2 [place] [address] [address]- [address] Dec, Bipolar 2 disorder F31.81 ; PTSD (post-traumatic stress disorder) F43.10 ; Panic disorder with agoraphobia F40.01 and Epilepsy G40.909 [place] [address] [address]- [address] Dec, Bipolar 2 disorder F31.81 ; PTSD (post-traumatic stress disorder) F43.10 and Panic disorder with agoraphobia F40.01 [place] [address] [place] [id number] [place] [address] 60928- 6726 Dec, Diabetes E11.9 [place] [address] [place] [id number] [place] [address] 78096- 7178 Dec, [place] [address] [address]- [address] Dec, Other chronic pain G89.29 ; Hepatitis C B19.20 and History of seizures Z87.898 [place] [address] [place] [id number] [place] [address] 46953- 7667 Dec, [place] [address] [place] [id number] [place] [address] 43282- 8158 Dec, Bipolar 2 disorder F31.81 and Other chronic pain G89.29 [place] [address] [place] [id number] [place] [address] 42593- 1104 Dec, Cervicalgia M54.2 and Diabetes E11.9 [place] [address] [address]- [address] Dec, [facility] [address] [place] [id number] [place] [address] 27936- 0852 Dec, [facility] [address] [place] [id number] [place] [address] 88317- 2312 Dec, [facility] [address] [place] [id number] [place] [address] 23923- 1283 Dec, [facility] [address] [address]- 2408 Dec, Type 2 diabetes mellitus 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s E11.9 [place] [address] [address]- [address] 10 Dec, 2015 [place] [address] [place] [id number] [place] [address] 36140- 0818 Dec, History of seizures Z87.898 and Hepatitis C B19.20 [place] [address] [address]- 9784 08 Dec, 2015 Hepatitis C B19.20 [place] [address] [place] [id number] [place] [address] 09145- 9503 Dec, [place] [address] [place] [id number] [place] [address] 8[address]30- 5[address] Dec, Cervicalgia M54.2 ; COPD (chronic obstructive pulmonary disease) J44.9 and Hepatitis C B19.20 [place] [address] [place] [id number] [place] [address]20- 1942 Dec, Bipolar 2 disorder F31.81 ; History of hypertension Z86.79 ; History of anxiety Z86.59 ; Panic disorder with agoraphobia F40.01 and Epilepsy G40.909 [place] [address] [place] [id number] [place] [address] 76750- 1192 Nov, [place] [address] [place] [id number] [place] [address] 56[address]- 1932 Nov, [place] [address] [place] [id number] [place] [address] 7[address]31- 8814 19 Nov, 2015 History of seizures Z87.898 ; OAB (overactive bladder) N32.81 ; Lumbago M54.5 ; Other chronic pain G89.29 ; Cervicalgia M54.2 ; Tobacco abuse Z72.0 ; Tobacco abuse counseling Z71.6 and Impaired fasting glucose R73.01 [place] [address] [address]- 6198 Nov, Bipolar 2 disorder F31.81 ; PTSD (post-traumatic stress disorder) F43.10 ; History of anxiety Z86.59 ; History of COPD Z87.09 ; Panic disorder with agoraphobia F40.01 and Moderate depressed bipolar I disorder F31.[address] [address]- [address] 12 Nov, 2015 PTSD (post-traumatic stress disorder) F43.10 [facility] [address] [id number] Nov, Dental examination Z01.20 and Dental caries K02.[address] [address]- 1439 Nov, History of hypertension Z86.79 ; History of hypothyroidism Z86.39 ; History of high cholesterol Z86.39 ; History of COPD Z87.09 and Overactive bladder N32.[address] 9[address]- 1543 Nov, Bipolar 2 disorder F31.81 and PTSD (post-traumatic stress disorder) F43.10 [place] [id number] [place] [address] 67829- 1645 Nov, PTSD (post-traumatic stress disorder) F43.10 ; Panic disorder with agoraphobia F40.01 ; Epilepsy G40.909 and Moderate depressed bipolar I disorder F31.32 [place] [address] [place] [id number] [place] [address] 56378- 5070 Nov, [place] [address] [address] Nov, [place] [id number] [place] [address] 73791- 1070 Oct, [place] [address] [address] Oct, Generalized anxiety disorder F41.1 ; Major depression, recurrent F33.9 and PTSD (post-traumatic stress disorder) F43.10 [place] [address] [place] [address] 82054- 4672 Oct, Elevated fasting glucose R73.01 [place] [id number] [place] [address] 20795- 2356 Oct, Elevated fasting glucose R73.01 [place] [address] [place] [address] 58504- 9936 Oct, History of COPD Z87.09 [place] [address] [place] [address] 03889- 4058 Oct, General medical exam Z00.00 ; History of hypertension Z86.79 ; History of hypothyroidism Z86.39 ; History of hepatitis Z86.19 ; History of high cholesterol Z86.39 and History of seizures Z87.898 [place] [address] [place] [id number] [address] Oct, General medical exam Z00.00 ; History of hypertension Z86.79 ; History of hypothyroidism Z86.39 ; Bipolar 2 disorder F31.81 ; PTSD ( post-traumatic stress disorder) F43.10 ; History of hepatitis Z86.19 ; History of high cholesterol Z86.39 ; History of anxiety Z86.59 ; History of seizures Z87.898 ; History of [place] (myocardial infarction) I25.2 and History of COPD Z87.09 [place] [address] [address] Oct, Generalized anxiety disorder F41.1 ; Depression F32.9 and PTSD (post-traumatic stress disorder) F43.10 [facility] [address] [place] [id number] [address] Jan, [facility] [address] [place] [id number] [address] 20[address] Jan, [facility] [address] [address] Jun, [place] [address] [place] [id number] Jun, [facility] [address] [place] [id number] [address] 4[address] May, [facility] [address] [address] May, [place] [address] [place] [id number] May, [facility] [address] [place] [id number] [address]- 95[address] May, [place] [address] [place] [id number] May, [facility] [address] [facility] [id number] [address] May, IMMUNIZATIONS No Known Immunizations SOCIAL HISTORY Never Assessed REASON FOR VISIT xanax refill PLAN OF CARE VITAL SIGNS MEDICATIONS Medication Instructions Dosage Frequency Start Date End Date Duration Status Xanax 2 MG Orally Three times a day. must last 30 days 1 tablet 30 days Active RESULTS No Results PROCEDURES No Known procedures INSTRUCTIONS MEDICATIONS ADMINISTERED No Known Medications MEDICAL (GENERAL) HISTORY Type Description Date Medical History Hypothyroidism Medical History High cholesterol Medical History Hypertension Medical History Brain seizure Medical History Asthma Medical History COPD Medical History Hep C -2005 Medical History PA x 2 last in 2009 Medical History PTSD (post-traumatic stress disorder) Medical History PTSD (post-traumatic stress disorder) Medical History Colon Cancer 2016 Medical History diabites II Surgical History tonsillectomy 1985 Surgical History partial hysterectomy 2004 Surgical History appendectomy 2004 Hospitalization History Surgery(s) only Hospitalization History pneumonia x3 days Hospitalization History Heart cath with stint 05/15/2016 Hospitalization History Diverticulitis, N/V-[facility] 01/28/17
--- OUTSIDE RECORDS SUMMARY | 2018-02-02 12:41 | XMS REPORT ---
Author Author FRANK LUNA [facility] Address [address] [place] [address] Care Team Providers Care Customer Experience Intern Name Role Phone FRANK LUNA Unavailable PROBLEMS Type Condition ICD9-CM Code HSE75-ED Code Onset Dates Condition Status SNOMED Code Problem History of high cholesterol Z86.39 Active 598282495 Problem History of seizures Z87.898 Active 443235546 Problem History of [place] (myocardial infarction) I25.2 Active 715331962 Problem Bipolar 2 disorder F31.81 Active 37733765 Problem History of hypothyroidism Z86.39 Active 755373338 Problem History of hypertension Z86.79 Active 572073087 Problem Chronic post-traumatic stress disorder (PTSD) F43.12 Active 763249367 Problem Panic disorder with agoraphobia F40.01 Active 80203845 Problem medical health researcher 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 Active 746107410 Problem Epilepsy G40.909 Active 72295865 Problem Type 2 diabetes mellitus with hyperglycemia E11.65 Active 418072244 Problem Uncontrolled type 2 diabetes mellitus 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, without long-term 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 E11.65 Active 316257381 Problem Mood disorder F39 Active 09791451 Problem Bipolar I disorder with duy F31.10 Active 91046104 Problem Bipolar I disorder with mood-congruent psychotic features F31.9 Active 380448835 Problem Other chronic pain G89.29 Active 17691997 Problem Cervicalgia M54.2 Active 06500453 Problem OAB (overactive bladder) N32.81 Active 882603980 Problem Hypertension, benign I10 Active 42400722 Problem Type 2 diabetes mellitus with hyperglycemia E11.65 Active 969968680 Problem Gastritis and duodenitis K29.90 Active 518706966 Problem Primary insomnia F51.01 Active 0336303 Problem Hepatitis C B19.20 Active 33508671 Problem COPD (chronic obstructive pulmonary disease) J44.9 Active 64335983 Problem Tobacco abuse Z72.0 Active 18212974 Problem Lumbago M54.5 Active 865771066 Problem Type 2 diabetes mellitus 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s E11.9 Active 184680410 Problem Hypoglycemia E16.2 Active 521877763 Problem Diabetes E11.9 Active 17065722 Problem Bilateral claudication of lower limb I73.9 Active 722975317 ALLERGIES Unknown Allergies SOCIAL HISTORY No smoking Hx information available PLAN OF CARE VITAL SIGNS MEDICATIONS Medication Instructions Dosage Frequency Start Date End Date Duration Status Xanax 2 MG Orally Three times a day 1 tablet 8h 18 Dec, 2015 30 days Active RESULTS No Results PROCEDURES No Known procedures IMMUNIZATIONS No Known Immunizations
--- OUTSIDE RECORDS SUMMARY | 2018-02-02 12:41 | XMS REPORT ---
Author Author GERARDO KISER [facility] Address [address] [place] [address] Care Team Providers Care Fulfillment Mail Clerk Name Role Phone GERARDO KISER Unavailable PROBLEMS Type Condition ICD9-CM Code SED59-CC Code Onset Dates Condition Status SNOMED Code Problem History of high cholesterol Z86.39 Active 392948945 Problem History of seizures Z87.898 Active 308931185 Problem History of [place] (myocardial infarction) I25.2 Active 418219975 Problem Bipolar 2 disorder F31.81 Active 10409147 Problem History of hypothyroidism Z86.39 Active 523693123 Problem History of hypertension Z86.79 Active 353793819 Problem Chronic post-traumatic stress disorder (PTSD) F43.12 Active 397083800 Problem Panic disorder with agoraphobia F40.01 Active 71083128 Problem 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 Active 674234754 Problem Epilepsy G40.909 Active 78625310 Problem Type 2 diabetes mellitus with hyperglycemia E11.65 Active 146989570 Problem Uncontrolled type 2 diabetes mellitus 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, without long-term 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 E11.65 Active 444992011 Problem Mood disorder F39 Active 00342073 Problem Bipolar I disorder with duy F31.10 Active 06219615 Problem Bipolar I disorder with mood-congruent psychotic features F31.9 Active 575236931 Problem Other chronic pain G89.29 Active 25018539 Problem Cervicalgia M54.2 Active 61787478 Problem OAB (overactive bladder) N32.81 Active 822854692 Problem Hypertension, benign I10 Active 63169074 Problem Type 2 diabetes mellitus with hyperglycemia E11.65 Active 342568421 Problem Gastritis and duodenitis K29.90 Active 696786472 Problem Primary insomnia F51.01 Active 9978638 Problem Hepatitis C B19.20 Active 85796214 Problem COPD (chronic obstructive pulmonary disease) J44.9 Active 59483802 Problem Tobacco abuse Z72.0 Active 32997979 Problem Lumbago M54.5 Active 985212351 Problem Type 2 diabetes mellitus 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s E11.9 Active 300915091 Problem Hypoglycemia E16.2 Active 446574834 Problem Diabetes E11.9 Active 00574534 Problem Bilateral claudication of lower limb I73.9 Active 799106841 ALLERGIES Unknown Allergies SOCIAL HISTORY No smoking Hx information available PLAN OF CARE VITAL SIGNS MEDICATIONS Unknown Medications RESULTS No Results PROCEDURES No Known procedures IMMUNIZATIONS No Known Immunizations
--- OUTSIDE RECORDS SUMMARY | 2018-02-02 12:41 | XMS REPORT ---
Author Author GERARDO KISER [facility] Address [address] [place] [address] Care Team Providers Care General Partner Name Role Phone GERARDO KISER Unavailable PROBLEMS Type Condition ICD9-CM Code UUC87-SS Code Onset Dates Condition Status SNOMED Code Problem History of high cholesterol Z86.39 Active 632858117 Problem History of seizures Z87.898 Active 311604794 Problem History of [place] (myocardial infarction) I25.2 Active 588031623 Problem Bipolar 2 disorder F31.81 Active 93742455 Problem History of hypothyroidism Z86.39 Active 687256343 Problem History of hypertension Z86.79 Active 876792416 Problem Chronic post-traumatic stress disorder (PTSD) F43.12 Active 489647021 Problem Panic disorder with agoraphobia F40.01 Active 48756518 Problem spring layer 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 Active 608518534 Problem Epilepsy G40.909 Active 95730047 Problem Type 2 diabetes mellitus with hyperglycemia E11.65 Active 839148948 Problem Uncontrolled type 2 diabetes mellitus 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, without long-term 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 E11.65 Active 020944614 Problem Mood disorder F39 Active 75595896 Problem Bipolar I disorder with duy F31.10 Active 22350969 Problem Bipolar I disorder with mood-congruent psychotic features F31.9 Active 313355278 Problem Other chronic pain G89.29 Active 64614363 Problem Cervicalgia M54.2 Active 79986223 Problem OAB (overactive bladder) N32.81 Active 468222876 Problem Hypertension, benign I10 Active 09031649 Problem Type 2 diabetes mellitus with hyperglycemia E11.65 Active 607524942 Problem Gastritis and duodenitis K29.90 Active 421281903 Problem Primary insomnia F51.01 Active 9302323 Problem Hepatitis C B19.20 Active 49560754 Problem COPD (chronic obstructive pulmonary disease) J44.9 Active 32476871 Problem Tobacco abuse Z72.0 Active 78787340 Problem Lumbago M54.5 Active 193441302 Problem Type 2 diabetes mellitus 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s E11.9 Active 879906813 Problem Hypoglycemia E16.2 Active 204095202 Problem Diabetes E11.9 Active 56219295 Problem Bilateral claudication of lower limb I73.9 Active 730412339 ALLERGIES Unknown Allergies SOCIAL HISTORY No smoking Hx information available PLAN OF CARE VITAL SIGNS MEDICATIONS Unknown Medications RESULTS No Results PROCEDURES No Known procedures IMMUNIZATIONS No Known Immunizations
--- OUTSIDE RECORDS SUMMARY | 2018-02-02 12:41 | XMS REPORT ---
Author Author GERARDO KISER [facility] Address [address] [place] [address] Care Team Providers Care Body Corporate Manager Name Role Phone GERARDO KISER Unavailable PROBLEMS Type Condition ICD9-CM Code [id number] Code Onset Dates Condition Status SNOMED Code Problem History of high cholesterol Z86.39 Active 373818022 Problem History of seizures Z87.898 Active 376988544 Problem History of [place] (myocardial infarction) I25.2 Active 732502414 Problem Bipolar 2 disorder F31.81 Active 21042283 Problem History of hypothyroidism Z86.39 Active 594040639 Problem History of hypertension Z86.79 Active 502659226 Problem Chronic post-traumatic stress disorder (PTSD) F43.12 Active 266045338 Problem Panic disorder with agoraphobia F40.01 Active 69297327 Problem buttermaker helper 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 Active 727892898 Problem Epilepsy G40.909 Active 54982066 Problem Type 2 diabetes mellitus with hyperglycemia E11.65 Active 669098235 Problem Uncontrolled type 2 diabetes mellitus 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, without long-term 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 E11.65 Active 905471651 Problem Mood disorder F39 Active 48154639 Problem Bipolar I disorder with duy F31.10 Active 59699955 Problem Bipolar I disorder with mood-congruent psychotic features F31.9 Active 408052430 Problem Other chronic pain G89.29 Active 05248661 Problem Cervicalgia M54.2 Active 19435023 Problem OAB (overactive bladder) N32.81 Active 933169004 Problem Hypertension, benign I10 Active 24300970 Problem Type 2 diabetes mellitus with hyperglycemia E11.65 Active 483779488 Problem Gastritis and duodenitis K29.90 Active 761136507 Problem Primary insomnia F51.01 Active 7843943 Problem Hepatitis C B19.20 Active 67028062 Problem COPD (chronic obstructive pulmonary disease) J44.9 Active 16560235 Problem Tobacco abuse Z72.0 Active 32274789 Problem Lumbago M54.5 Active 195612083 Problem Type 2 diabetes mellitus 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s E11.9 Active 418845160 Problem Hypoglycemia E16.2 Active 805437979 Problem Diabetes E11.9 Active 28692007 Problem Bilateral claudication of lower limb I73.9 Active 808788394 ALLERGIES Unknown Allergies SOCIAL HISTORY No smoking Hx information available PLAN OF CARE VITAL SIGNS MEDICATIONS Medication Instructions Dosage Frequency Start Date End Date Duration Status Ranitidine HCl 150 MG Orally Twice a day 1 tablet at bedtime 12h Nov, 30 day(s) Active RESULTS No Results PROCEDURES No Known procedures IMMUNIZATIONS No Known Immunizations
--- OUTSIDE RECORDS SUMMARY | 2018-02-02 12:41 | XMS REPORT ---
Author Author GERARDO KISER [facility] Address [address] [place] [address] Care Team Providers Care Embossing Calender Operator Name Role Phone GERARDO KISER Unavailable PROBLEMS Type Condition ICD9-CM Code [id number] Code Onset Dates Condition Status SNOMED Code Problem History of high cholesterol Z86.39 Active 948452997 Problem History of seizures Z87.898 Active 960488156 Problem History of [place] (myocardial infarction) I25.2 Active 939655689 Problem Bipolar 2 disorder F31.81 Active 98987481 Problem History of hypothyroidism Z86.39 Active 228602481 Problem History of hypertension Z86.79 Active 404605359 Problem Chronic post-traumatic stress disorder (PTSD) F43.12 Active 530622336 Problem Panic disorder with agoraphobia F40.01 Active 60264054 Problem termite 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 Active 312888212 Problem Epilepsy G40.909 Active 04090729 Problem Type 2 diabetes mellitus with hyperglycemia E11.65 Active 202799376 Problem Uncontrolled type 2 diabetes mellitus 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, without long-term 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 E11.65 Active 387354412 Problem Mood disorder F39 Active 94831279 Problem Bipolar I disorder with duy F31.10 Active 38161076 Problem Bipolar I disorder with mood-congruent psychotic features F31.9 Active 857749155 Problem Other chronic pain G89.29 Active 40329337 Problem Cervicalgia M54.2 Active 62186531 Problem OAB (overactive bladder) N32.81 Active 402276468 Problem Hypertension, benign I10 Active 99801204 Problem Type 2 diabetes mellitus with hyperglycemia E11.65 Active 387794594 Problem Gastritis and duodenitis K29.90 Active 681891135 Problem Primary insomnia F51.01 Active 5795288 Problem Hepatitis C B19.20 Active 51397603 Problem COPD (chronic obstructive pulmonary disease) J44.9 Active 26640824 Problem Tobacco abuse Z72.0 Active 27970525 Problem Lumbago M54.5 Active 684276155 Problem Type 2 diabetes mellitus 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s E11.9 Active 026875934 Problem Hypoglycemia E16.2 Active 301633910 Problem Diabetes E11.9 Active 79141202 Problem Bilateral claudication of lower limb I73.9 Active 784211306 ALLERGIES No Information SOCIAL HISTORY Never Assessed [...]
--- OUTSIDE RECORDS SUMMARY | 2018-02-02 12:41 | XMS REPORT ---
Author Author GERARDO KISER [facility] Address [address] [place] [address] Care Team Providers Care Crt Name Role Phone GERARDO KISER Unavailable PROBLEMS Type Condition ICD9-CM Code [id number] Code Onset Dates Condition Status SNOMED Code Problem History of high cholesterol Z86.39 Active 985267740 Problem History of seizures Z87.898 Active 670999737 Problem History of [place] (myocardial infarction) I25.2 Active 519252803 Problem Bipolar 2 disorder F31.81 Active 14061202 Problem History of hypothyroidism Z86.39 Active 864094066 Problem History of hypertension Z86.79 Active 169967564 Problem Chronic post-traumatic stress disorder (PTSD) F43.12 Active 902674921 Problem Panic disorder with agoraphobia F40.01 Active 51740091 Problem 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 Active 693338984 Problem Epilepsy G40.909 Active 64930403 Problem Type 2 diabetes mellitus with hyperglycemia E11.65 Active 807389445 Problem Uncontrolled type 2 diabetes mellitus 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, without long-term 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 E11.65 Active 614819543 Problem Mood disorder F39 Active 28865222 Problem Bipolar I disorder with duy F31.10 Active 49233793 Problem Bipolar I disorder with mood-congruent psychotic features F31.9 Active 724590058 Problem Other chronic pain G89.29 Active 06076816 Problem Cervicalgia M54.2 Active 59307955 Problem OAB (overactive bladder) N32.81 Active 923737798 Problem Hypertension, benign I10 Active 54689188 Problem Type 2 diabetes mellitus with hyperglycemia E11.65 Active 338671472 Problem Gastritis and duodenitis K29.90 Active 957433189 Problem Primary insomnia F51.01 Active 2712104 Problem Hepatitis C B19.20 Active 15345025 Problem COPD (chronic obstructive pulmonary disease) J44.9 Active 70402496 Problem Tobacco abuse Z72.0 Active 23872270 Problem Lumbago M54.5 Active 236954883 Problem Type 2 diabetes mellitus 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s E11.9 Active 018988081 Problem Hypoglycemia E16.2 Active 146743651 Problem Diabetes E11.9 Active 63159648 Problem Bilateral claudication of lower limb I73.9 Active 036672090 ALLERGIES Substance Reaction Event Type Date Status Penicillin V Potassium Unknown Drug Allergy Dec, Active Metformin HCl diarrhea Drug Allergy Dec, Active SOCIAL HISTORY Never Assessed PLAN OF CARE Activity Details Follow Up 2 Weeks Reason:dm2 uncontrolled. VITAL SIGNS Height 62 in 2017-01-05 Temperature 97.9 degrees Fahrenheit 2017-01-05 Heart Rate 84 bpm 2017-01-05 Respiratory Rate 20 2017-01-05 Oximetry on room air:94 % 2017-01-05 Blood pressure systolic 100 mmHg 2017-01-05 Blood pressure diastolic 62 mmHg 2017-01-05 MEDICATIONS Medication Instructions Dosage Frequency Start Date End Date Duration Status Atenolol 25 MG Orally Once a day 1 tablet 24h 30 Active Xanax 2 MG Orally Three times a day 1 tablet 8h Dec, 30 days Active Lipitor 40 mg Orally Once a day 1 tablet 24h Active Doxepin HCl 150 MG TAKE ONE CAPSULE BY MOUTH ONCE DAILY AT BEDTIME 30 Active Montelukast Sodium 10 mg Orally Once a day 1 tablet 24h Oct, 30 days Active NovoLog Flexpen 100 UNIT/ML ICD10: E11.9 3 times a day with meals 40 units Nov, Active Neurontin 300 MG Orally Three times a day 1 capsule 8h Dec, 30 day(s) Active Cetirizine HCl 10 mg Orally Once a day 1 tablet 24h Jul, Jan, 30 day(s) Active Olanzapine 2.5 MG TAKE ONE TABLET BY MOUTH ONCE DAILY IN THE MORNING Active Zyprexa 10 MG Orally Once a day at bedtime 1 tablet 30 Active Cyproheptadine HCl 4 MG Orally Once at bedtime for trauma nightmares 1 tablet Active Effexor XR 150 MG Orally Once a day 1 capsule 24h Apr, Active ProAir HFA 108 (90 Base) MCG/ACT Inhalation 4 times a day 2 puffs as needed 6h Oct, Active Blood Glucose Monitor 1 glucometer test blood sugar Apr, Active Test strips Test Strips Contour Next TST58-A23.9 3 times a day test 3 times per day 8h Nov, Active MetFORMIN HCl ER 500 MG Orally twice a day with food 2 tablets Nov, Active Levemir FlexTouch 100 UNIT/ML ICD10- E11.9 2 times a day 45 units 12h Nov, Active Test strips 1 test blood sugar Aug, Active Accu-Chek Compact Plus ... sub Q 3 times a day 1 test strip 8h Dec, Active Ranitidine HCl 150 MG Orally Twice a day 1 tablet at bedtime 12h Nov, 30 day(s) Active [place] 10-325 MG Orally 3 times a day 1 tablet as needed 8h Dec, Jan, 28 days Active Levothyroxine Sodium 150 MCG Orally Once a day 1 tablet 24h 10 Oct, 2015 Active Aspirin 81 MG Orally Once a day 1 tablet 24h May, 30 day(s) Active Symbicort 160-4.5 MCG/ACT Inhalation Twice a day- rinse mouth and spit after use 2 puffs every day Apr, Active HydrOXYzine Pamoate 50 mg Orally Take 1-2 capsules at bedtime for sleep. 1 capsule as needed 30 Active Albuterol Sulfate 1.25 MG/3ML Inhalation 4 times a day 3 ml as needed 6h Apr, Active Nebulizer 1 as directed Apr, Active Effexor XR 75 MG Orally Once a day 1 capsule 24h Apr, Active Nitroglycerin 0.4 MG Sublingual 3 times a day, prn chest pain 1 tablet Dec, Active RESULTS Name Result Date Reference Range Xray : Spine, Lumbar 2-3 views (IN HOUSE) 2017-01-05 PROCEDURES Procedure Date Ordered Result Body Site MEASURE BLOOD OXYGEN LEVEL January 05, 2017 IMMUNIZATIONS No Known Immunizations MEDICAL (GENERAL) [...]
--- OUTSIDE RECORDS SUMMARY | 2018-02-02 12:41 | XMS REPORT ---
Author Author GERARDO KISER [facility] Address [address] [place] [address] Care Team Providers Care Environmental Conservation Officer Name Role Phone GERARDO KISER Unavailable PROBLEMS Type Condition ICD9-CM Code [id number] Code Onset Dates Condition Status SNOMED Code Problem History of seizures Z87.898 Active 584273274 Problem History of high cholesterol Z86.39 Active 054522451 Problem History of [place] (myocardial infarction) I25.2 Active 628005052 Problem Bipolar 2 disorder F31.81 Active 67787078 Problem History of hypothyroidism Z86.39 Active 192186225 Problem History of hypertension Z86.79 Active 225352026 Problem Panic disorder with agoraphobia F40.01 Active 19505261 Problem FDC 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 Active 324037748 Problem Epilepsy G40.909 Active 56083392 Problem Type 2 diabetes mellitus with hyperglycemia E11.65 Active 677097450 Problem OAB (overactive bladder) N32.81 Active 000577342 Problem Mood disorder F39 Active 41955916 Problem Type 2 diabetes mellitus with hyperglycemia E11.65 Active 765825632 Problem Uncontrolled type 2 diabetes mellitus 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, without long-term 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 E11.65 Active 787402398 Problem Stress incontinence of urine N39.3 Active 91852053 Problem Bipolar I disorder with duy F31.10 Active 19284282 Problem Tobacco abuse Z72.0 Active 32389976 Problem Other chronic pain G89.29 Active 16340695 Problem Cervicalgia M54.2 Active 09700101 Problem Primary insomnia F51.01 Active 3480145 Problem Hypertension, benign I10 Active 70929907 Problem Bipolar I disorder with mood-congruent psychotic features F31.9 Active 429906963 Problem Gastritis and duodenitis K29.90 Active 113471844 Problem COPD (chronic obstructive pulmonary disease) J44.9 Active 88710412 Problem Diabetes E11.9 Active 85301949 Problem Lumbago M54.5 Active 713878106 Problem Hepatitis C B19.20 Active 27699272 Problem Hypoglycemia E16.2 Active 573501612 Problem Chronic post-traumatic stress disorder (PTSD) F43.12 Active 627586969 Problem Bilateral claudication of lower limb I73.9 Active 517654069 Problem Type 2 diabetes mellitus 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s E11.9 Active 986400459 ALLERGIES No Information SOCIAL HISTORY Never Assessed PLAN OF CARE VITAL SIGNS MEDICATIONS Medication Instructions Dosage Frequency Start Date End Date Duration Status Levemir FlexTouch 100 UNIT/ML ICD10- E11.9 2 times a day 45 units 12h Nov, Active NovoLog Flexpen 100 UNIT/ML ICD10: E11.9 3 times a day with meals 40 units Nov, Active RESULTS No Results PROCEDURES [...]
--- OUTSIDE RECORDS SUMMARY | 2018-02-02 12:42 | XMS REPORT ---
Author Author GERARDO KISER [facility] Address [address] [place] [address] Care Team Providers Care Software Applications Engineer Name Role Phone GERARDO KISER Unavailable PROBLEMS Type Condition ICD9-CM Code [id number] Code Onset Dates Condition Status SNOMED Code Problem History of high cholesterol Z86.39 Active 308434612 Problem History of seizures Z87.898 Active 647200649 Problem History of [place] (myocardial infarction) I25.2 Active 257377288 Problem Bipolar 2 disorder F31.81 Active 35233933 Problem History of hypothyroidism Z86.39 Active 922866247 Problem History of hypertension Z86.79 Active 609452962 Problem Chronic post-traumatic stress disorder (PTSD) F43.12 Active 789813638 Problem Panic disorder with agoraphobia F40.01 Active 90535007 Problem supervising broker 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 Active 932608200 Problem Epilepsy G40.909 Active 70202951 Problem Type 2 diabetes mellitus with hyperglycemia E11.65 Active 613448195 Problem Uncontrolled type 2 diabetes mellitus 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, without long-term 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 E11.65 Active 480947879 Problem Mood disorder F39 Active 28412460 Problem Bipolar I disorder with duy F31.10 Active 68598095 Problem Bipolar I disorder with mood-congruent psychotic features F31.9 Active 137887536 Problem Other chronic pain G89.29 Active 89723954 Problem Cervicalgia M54.2 Active 57821139 Problem OAB (overactive bladder) N32.81 Active 927611967 Problem Hypertension, benign I10 Active 89198581 Problem Type 2 diabetes mellitus with hyperglycemia E11.65 Active 715586928 Problem Gastritis and duodenitis K29.90 Active 336063295 Problem Primary insomnia F51.01 Active 0484764 Problem Hepatitis C B19.20 Active 15908189 Problem COPD (chronic obstructive pulmonary disease) J44.9 Active 61598519 Problem Tobacco abuse Z72.0 Active 80231211 Problem Lumbago M54.5 Active 940006632 Problem Type 2 diabetes mellitus 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s E11.9 Active 410442792 Problem Hypoglycemia E16.2 Active 862133774 Problem Diabetes E11.9 Active 93437730 Problem Bilateral claudication of lower limb I73.9 Active 309641665 ALLERGIES No Information SOCIAL HISTORY Never Assessed PLAN OF CARE VITAL SIGNS MEDICATIONS Medication Instructions Dosage Frequency Start Date End Date Duration Status [place] 10-325 MG Orally 2 times a day 1 tablet as needed 12h 10 Dec, 2016 28 days Active RESULTS No Results PROCEDURES No Known procedures IMMUNIZATIONS No Known Immunizations MEDICAL (GENERAL) HISTORY Type Description Date Medical History Hypothyroidism Medical History High cholesterol Medical History Hypertension Medical History Brain seizure Medical History Asthma Medical History COPD Medical History Hep C -2005 Medical History [place] x 2 last in 2009 Medical History PTSD (post-traumatic stress disorder) Medical History PTSD (post-traumatic stress disorder) Surgical History tonsillectomy 1985 Surgical History partial hysterectomy 2004 Surgical History appendectomy 2004 Hospitalization History Surgery(s) only Hospitalization History pneumonia x3 days Hospitalization History Heart cath with stint 05/15/2016 Hospitalization History Diverticulitis, N/V-[facility] 01/28/17
--- OUTSIDE RECORDS SUMMARY | 2018-02-02 12:42 | XMS REPORT ---
Author Author FRANK LUNA [facility] Address [address] [place] [address] Care Team Providers Care Cooker Loader Name Role Phone FRANK LUNA Unavailable PROBLEMS Type Condition ICD9-CM Code [id number] Code Onset Dates Condition Status SNOMED Code Problem History of high cholesterol Z86.39 Active 400500662 Problem History of seizures Z87.898 Active 277806174 Problem History of [place] (myocardial infarction) I25.2 Active 648683603 Problem Bipolar 2 disorder F31.81 Active 12114079 Problem History of hypothyroidism Z86.39 Active 902861870 Problem History of hypertension Z86.79 Active 938482088 Problem Chronic post-traumatic stress disorder (PTSD) F43.12 Active 339922757 Problem Panic disorder with agoraphobia F40.01 Active 27943613 Problem manager long term care 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 Active 430547261 Problem Epilepsy G40.909 Active 34838477 Problem Type 2 diabetes mellitus with hyperglycemia E11.65 Active 422745485 Problem Uncontrolled type 2 diabetes mellitus 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, without long-term 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 E11.65 Active 490132493 Problem Mood disorder F39 Active 83684668 Problem Bipolar I disorder with duy F31.10 Active 78511809 Problem Bipolar I disorder with mood-congruent psychotic features F31.9 Active 468353950 Problem Other chronic pain G89.29 Active 69979637 Problem Cervicalgia M54.2 Active 51594876 Problem OAB (overactive bladder) N32.81 Active 926868612 Problem Hypertension, benign I10 Active 04065248 Problem Type 2 diabetes mellitus with hyperglycemia E11.65 Active 402283464 Problem Gastritis and duodenitis K29.90 Active 339408538 Problem Primary insomnia F51.01 Active 5382170 Problem Hepatitis C B19.20 Active 79759359 Problem COPD (chronic obstructive pulmonary disease) J44.9 Active 26252966 Problem Tobacco abuse Z72.0 Active 06293269 Problem Lumbago M54.5 Active 739074858 Problem Type 2 diabetes mellitus 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s E11.9 Active 791844721 Problem Hypoglycemia E16.2 Active 249589306 Problem Diabetes E11.9 Active 91879996 Problem Bilateral claudication of lower limb I73.9 Active 810688354 ALLERGIES Substance Reaction Event Type Date Status Penicillin V Potassium Unknown Drug Allergy Dec, Active Metformin HCl diarrhea Drug Allergy Dec, Active SOCIAL HISTORY Never Assessed PLAN OF CARE Activity Details Follow Up 3 Months Reason: VITAL SIGNS Height 62 in 2017-01-08 Weight 197.5 lbs 2017-01-08 Heart Rate 124 bpm 2017-01-08 Respiratory Rate 22 2017-01-08 BMI 36.12 kg/m2 2017-01-08 Blood pressure systolic 114 mmHg 2017-01-08 Blood pressure diastolic 78 mmHg 2017-01-08 MEDICATIONS Medication Instructions Dosage Frequency Start Date End Date Duration Status Zyprexa 10 MG Orally Once a day at bedtime 1 tablet Active MetFORMIN HCl ER 500 MG Orally twice a day with food 2 tablets Nov, Active Levothyroxine Sodium 150 MCG Orally Once a day 1 tablet 24h 10 Oct, 2015 Active Cyproheptadine HCl 4 MG Orally Once at bedtime for trauma nightmares 1 tablet Active Lipitor 40 mg Orally Once a day 1 tablet 24h Active Test strips Test Strips Contour Next UXP81-E66.9 3 times a day test 3 times per day 8h Nov, Active Levemir FlexTouch 100 UNIT/ML ICD10- E11.9 2 times a day 45 units 12h Nov, Active Albuterol Sulfate 1.25 MG/3ML Inhalation 4 times a day 3 ml as needed 6h Apr, Active Doxepin HCl 150 MG TAKE ONE CAPSULE BY MOUTH ONCE DAILY AT BEDTIME Active Xanax 2 MG Orally Three times a day 1 tablet 8h Dec, Active HydrOXYzine Pamoate 50 mg Orally Take 1-2 capsules at bedtime for sleep. 1 capsule as needed Active Atenolol 25 MG Orally Once a day 1 tablet 24h 30 Active Symbicort 160-4.5 MCG/ACT Inhalation Twice a day- rinse mouth and spit after use 2 puffs every day Apr, Active Nebulizer 1 as directed Apr, Active Effexor XR 75 MG Orally Once a day 1 capsule 24h Apr, Active [place] 10-325 MG Orally 3 times a day 1 tablet as needed 8h Dec, Jan, 28 days Active NovoLog Flexpen 100 UNIT/ML ICD10: E11.9 3 times a day with meals 40 units Nov, Active Cetirizine HCl 10 mg Orally Once a day 1 tablet 24h 09 Jul, 2016 Jan, 30 day(s) Active Blood Glucose Monitor 1 glucometer test blood sugar Apr, Active Ranitidine HCl 150 MG Orally Twice a day 1 tablet at bedtime 12h Nov, 30 day(s) Active Effexor XR 150 MG Orally Once a day 1 capsule 24h Apr, Active Montelukast Sodium 10 mg Orally Once a day 1 tablet 24h Oct, 30 days Active Aspirin 81 MG Orally Once a day 1 tablet 24h May, 30 day(s) Active ProAir HFA 108 (90 Base) MCG/ACT Inhalation 4 times a day 2 puffs as needed 6h Oct, Active Olanzapine 2.5 MG TAKE ONE TABLET BY MOUTH ONCE DAILY IN THE MORNING Active Nitroglycerin 0.4 MG Sublingual 3 times a day, prn chest pain 1 tablet Dec, Active Accu-Chek Compact Plus ... sub Q 3 times a day 1 test strip 8h Dec, Active Neurontin 300 MG Orally Three times a day 1 capsule 8h Dec, 30 day(s) Active Test strips 1 test blood sugar Aug, Active RESULTS No Results PROCEDURES No Known procedures IMMUNIZATIONS No Known Immunizations MEDICAL (GENERAL) HISTORY Type Description Date Medical History Hypothyroidism Medical History High cholesterol Medical History Hypertension Medical History Brain seizure Medical History Asthma Medical History COPD Medical History Hep C -2004 Medical History [place] x 2 last in 2009 Medical History PTSD (post-traumatic stress disorder) Medical History PTSD (post-traumatic stress disorder) Surgical History tonsillectomy 1985 Surgical History partial hysterectomy 2004 Surgical History appendectomy 2004 Hospitalization History Surgery(s) only Hospitalization History pneumonia x3 days Hospitalization History Heart cath with stint 05/15/2016 Hospitalization History Diverticulitis, N/V-[facility] 01/28/17
--- OUTSIDE RECORDS SUMMARY | 2018-02-02 12:42 | XMS REPORT ---
Author Author GERARDO KISER [facility] Address [address] [place] [address] Care Team Providers Care Heater Helper Forge Name Role Phone GERARDO KISER Unavailable PROBLEMS Type Condition ICD9-CM Code [id number] Code Onset Dates Condition Status SNOMED Code Problem History of high cholesterol Z86.39 Active 318108102 Problem History of seizures Z87.898 Active 152260378 Problem History of [place] (myocardial infarction) I25.2 Active 917542127 Problem Bipolar 2 disorder F31.81 Active 87504818 Problem History of hypothyroidism Z86.39 Active 530716508 Problem History of hypertension Z86.79 Active 267472168 Problem Chronic post-traumatic stress disorder (PTSD) F43.12 Active 928860901 Problem Panic disorder with agoraphobia F40.01 Active 95550556 Problem termination clerk 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 Active 936975894 Problem Epilepsy G40.909 Active 57325512 Problem Type 2 diabetes mellitus with hyperglycemia E11.65 Active 806569991 Problem Uncontrolled type 2 diabetes mellitus 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, without long-term 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 E11.65 Active 319711018 Problem Mood disorder F39 Active 53376993 Problem Bipolar I disorder with duy F31.10 Active 19083381 Problem Bipolar I disorder with mood-congruent psychotic features F31.9 Active 910354657 Problem Other chronic pain G89.29 Active 07847918 Problem Cervicalgia M54.2 Active 54223034 Problem OAB (overactive bladder) N32.81 Active 502198200 Problem Hypertension, benign I10 Active 91403193 Problem Type 2 diabetes mellitus with hyperglycemia E11.65 Active 964827087 Problem Gastritis and duodenitis K29.90 Active 990675243 Problem Primary insomnia F51.01 Active 0851519 Problem Hepatitis C B19.20 Active 49281971 Problem COPD (chronic obstructive pulmonary disease) J44.9 Active 86210988 Problem Tobacco abuse Z72.0 Active 97452529 Problem Lumbago M54.5 Active 771233018 Problem Type 2 diabetes mellitus 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s E11.9 Active 598822017 Problem Hypoglycemia E16.2 Active 346211806 Problem Diabetes E11.9 Active 88176096 Problem Bilateral claudication of lower limb I73.9 Active 230656392 ALLERGIES No Information SOCIAL HISTORY Never Assessed [...] Medical History Hep C -2005 Medical History [place] x 2 last in 2009 Medical History PTSD (post-traumatic stress disorder) Medical History PTSD (post-traumatic stress disorder) Surgical History tonsillectomy 1985 Surgical History partial hysterectomy 2004 Surgical History appendectomy 2004 Hospitalization History Surgery(s) only Hospitalization History pneumonia x3 days Hospitalization History Heart cath with stint 05/15/2016 Hospitalization History Diverticulitis, N/V-[facility] 01/28/17
--- OUTSIDE RECORDS SUMMARY | 2018-02-02 12:43 | XMS REPORT ---
Author Author GERARDO KISER [facility] Address [address] [place] [address] Care Team Providers Care College Hire Name Role Phone GERARDO KISER Unavailable PROBLEMS Type Condition ICD9-CM Code [id number] Code Onset Dates Condition Status SNOMED Code Problem History of high cholesterol Z86.39 Active 639045945 Problem History of seizures Z87.898 Active 834077300 Problem History of [place] (myocardial infarction) I25.2 Active 594854480 Problem Bipolar 2 disorder F31.81 Active 13696268 Problem History of hypothyroidism Z86.39 Active 310298846 Problem History of hypertension Z86.79 Active 842550429 Problem Chronic post-traumatic stress disorder (PTSD) F43.12 Active 388304824 Problem Panic disorder with agoraphobia F40.01 Active 01262947 Problem 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 Active 413722488 Problem Epilepsy G40.909 Active 11223870 Problem Type 2 diabetes mellitus with hyperglycemia E11.65 Active 832226893 Problem Uncontrolled type 2 diabetes mellitus 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, without long-term 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 E11.65 Active 818669916 Problem Mood disorder F39 Active 13960649 Problem Bipolar I disorder with duy F31.10 Active 05217844 Problem Bipolar I disorder with mood-congruent psychotic features F31.9 Active 710536163 Problem Other chronic pain G89.29 Active 44004422 Problem Cervicalgia M54.2 Active 21103350 Problem OAB (overactive bladder) N32.81 Active 869417514 Problem Hypertension, benign I10 Active 00084461 Problem Type 2 diabetes mellitus with hyperglycemia E11.65 Active 645410703 Problem Gastritis and duodenitis K29.90 Active 192261940 Problem Primary insomnia F51.01 Active 4882896 Problem Hepatitis C B19.20 Active 91350678 Problem COPD (chronic obstructive pulmonary disease) J44.9 Active 29083991 Problem Tobacco abuse Z72.0 Active 54763748 Problem Lumbago M54.5 Active 703687586 Problem Type 2 diabetes mellitus 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s E11.9 Active 812720073 Problem Hypoglycemia E16.2 Active 558187424 Problem Diabetes E11.9 Active 67152318 Problem Bilateral claudication of lower limb I73.9 Active 658718867 ALLERGIES No Information SOCIAL HISTORY Never Assessed [...]
--- OUTSIDE RECORDS SUMMARY | 2018-02-02 12:43 | XMS REPORT ---
Author Author GERARDO KISER [facility] Address [address] [place] [address] Care Team Providers Care Glass Beveller Name Role Phone GERARDO KISER Unavailable PROBLEMS Type Condition ICD9-CM Code [id number] Code Onset Dates Condition Status SNOMED Code Problem History of high cholesterol Z86.39 Active 575742533 Problem History of seizures Z87.898 Active 971611454 Problem History of NH (myocardial infarction) I25.2 Active 198185006 Problem Bipolar 2 disorder F31.81 Active 22126158 Problem History of hypothyroidism Z86.39 Active 303737188 Problem History of hypertension Z86.79 Active 150692356 Problem Chronic post-traumatic stress disorder (PTSD) F43.12 Active 112068984 Problem Panic disorder with agoraphobia F40.01 Active 84009346 Problem bridge operator slip 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 Active 896657766 Problem Epilepsy G40.909 Active 53560146 Problem Type 2 diabetes mellitus with hyperglycemia E11.65 Active 060907694 Problem Uncontrolled type 2 diabetes mellitus 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, without long-term 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 E11.65 Active 746333714 Problem Mood disorder F39 Active 45064793 Problem Bipolar I disorder with duy F31.10 Active 51263934 Problem Bipolar I disorder with mood-congruent psychotic features F31.9 Active 696624247 Problem Other chronic pain G89.29 Active 41774302 Problem Cervicalgia M54.2 Active 29158379 Problem OAB (overactive bladder) N32.81 Active 614421138 Problem Hypertension, benign I10 Active 95006176 Problem Type 2 diabetes mellitus with hyperglycemia E11.65 Active 274904537 Problem Gastritis and duodenitis K29.90 Active 305727910 Problem Primary insomnia F51.01 Active 0729267 Problem Hepatitis C B19.20 Active 73481953 Problem COPD (chronic obstructive pulmonary disease) J44.9 Active 22108952 Problem Tobacco abuse Z72.0 Active 77967949 Problem Lumbago M54.5 Active 164646678 Problem Type 2 diabetes mellitus 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s E11.9 Active 323046510 Problem Hypoglycemia E16.2 Active 409682635 Problem Diabetes E11.9 Active 34568891 Problem Bilateral claudication of lower limb I73.9 Active 101831291 ALLERGIES Unknown Allergies SOCIAL HISTORY No smoking Hx information available PLAN OF CARE VITAL SIGNS MEDICATIONS Medication Instructions Dosage Frequency Start Date End Date Duration Status Levemir FlexTouch 100 UNIT/ML Subcutaneous 2 times a day 35 units 12h Nov, Active NovoLog Flexpen 100 UNIT/ML Subcutaneous 3 times a day with meals 30 units Nov, Active RESULTS No Results PROCEDURES No Known procedures IMMUNIZATIONS No Known Immunizations
--- OUTSIDE RECORDS SUMMARY | 2018-02-02 12:45 | XMS REPORT | Continuity of Care Document ---
Author Author [facility] Address Unknown Phone Unavailable Allergies Active Description Code Type Severity Reaction Onset Reported/Identified Relationship to Patient Clinical Status Yes METFORMIN MODERATE ANAPHYLACTIC SHOCK Yes Penicillins [id number] Drug Allergy Unknown N/A 01/26/2017 Medications Medication Packaging Start Date Stop Date Route Dosage Sig NORMAL SALINE 1000CC IV BAG INJ 0.9 % (NS 1000CC IV BAG) ml 01/26/2018 01/26/2018 ONCE&2112 LEVALBUTEROL LIQ 0.63 MG/3CC (XOPENEX) MG 01/26/2018 01/26/2018 PRN ONCE CEFTRIAXONE VIAL INJ 500 MG (ROCEPHIN VIAL) MG 01/26/2018 01/26/2018 ONCE&2215 METHYLPREDNISOLONE VIAL INJ 125 MG/2CC (SOLU-MEDROL VIAL) MG 01/26/2018 01/26/2018 ONCE&2215 Problems Date Dx Coded Attending Type Code [...] APRN 784.0 HEADACHE 01/23/2016 HOLLIS KRUSE, CHAVA Bridget Ot M54.2 01/29/2016 HOLLIS KRUSE, CHAVA Gill Ot M54.2 02/10/2016 HOLLIS KRUSE, CHAVA Gill Ot M54.2 02/10/2016 HOLLIS KRUSE, CHAVA Gill [...] 05/14/2016 PRESTON HOLLEY MD Ot Z79.899 OTHER CUSTODIAL (CURRENT) DRUG THERAPY 05/14/2016 PRESTON HOLLEY MD Ot R56.9 UNSPECIFIED CONVULSIONS 05/15/2016 PRESTON HOLLEY MD Ot R56.9 UNSPECIFIED CONVULSIONS 05/15/2016 PRESTON HOLLEY MD Ot R56.9 UNSPECIFIED CONVULSIONS 05/15/2016 PRESTON HOLLEY MD Ot Z79.899 OTHER CUSTODIAL (CURRENT) DRUG THERAPY 05/15/2016 RENETTA KRUSE FACC, VALENTIN FACP CCDS Ot E11.9 TYPE 2 DIABETES MELLITUS WITHOUT COMPLIC 05/15/2016 RENETTA KRUSE FACC, ALI FACP CCDS Ot E66.9 OBESITY, UNSPECIFIED 05/15/2016 RENETTA KRUSE FACC, ALI FACP CCDS Ot F31.9 BIPOLAR DISORDER, UNSPECIFIED 05/15/2016 RENETTA KRUSE FACC, ALI FACP CCDS Ot F41.9 ANXIETY DISORDER, UNSPECIFIED 05/15/2016 RENETTA KRUSE FACC, ALI FACP CCDS Ot I10 ESSENTIAL (PRIMARY) HYPERTENSION 05/15/2016 RENETTA KRUSE FACC, VALENTIN FACP CCDS Ot J44.9 CHRONIC OBSTRUCTIVE PULMONARY DISEASE, U 05/15/2016 RENETTA KRUSE FACC, ALI FACP CCDS Ot M79.606 PAIN IN LEG, UNSPECIFIED 05/15/2016 RENETTA KRUSE FACC, ALI FACP CCDS Ot R07.89 OTHER CHEST PAIN 05/15/2016 RENETTA KRUSE FACC, VALENTIN FACP CCDS Ot R60.9 EDEMA, UNSPECIFIED 05/15/2016 RENETTA KRUSE FACC, ALI FACP CCDS Ot Z68.34 BODY MASS INDEX (BMI) 34.0-34.9, ADULT 05/15/2016 RENETTA KRUSE FACC, VALENTIN FACP CCDS Ot Z72.0 TOBACCO USE 05/15/2016 RENETTA KRUSE FACC, VALENTIN FACP CCDS Ot Z79.899 OTHER SLIP BRIDGE OPERATOR (CURRENT) DRUG THERAPY 05/18/2016 PRESTON HOLLEY MD K Ot R56.9 UNSPECIFIED CONVULSIONS 05/28/2016 PRESTON HOLLEY MD K Ot R56.9 UNSPECIFIED CONVULSIONS 05/28/2016 PRESTON HOLLEY MD K Ot R56.9 UNSPECIFIED CONVULSIONS 05/28/2016 PRESTON HOLLEY MD K Ot Z79.899 OTHER CUSTODIAL (CURRENT) DRUG THERAPY 06/10/2016 RENETTA KRUES FACC, VALENTIN FACP CCDS Ot E11.9 TYPE 2 DIABETES MELLITUS WITHOUT COMPLIC 06/10/2016 RENETTA KRUSE FACC, VALENTIN FACP CCDS Ot E66.9 OBESITY, UNSPECIFIED 06/10/2016 RENETTA KRUSE FACC, VALENTIN FACP CCDS Ot F31.9 BIPOLAR DISORDER, UNSPECIFIED 06/10/2016 RENETTA KRUSE FACC, VALENTIN FACP CCDS Ot F41.9 ANXIETY DISORDER, UNSPECIFIED 06/10/2016 RENETTA KRUSE FACC, VALENTIN FACP CCDS Ot I10 ESSENTIAL (PRIMARY) HYPERTENSION 06/10/2016 RENETTA KRUSE FACC, VALENTIN FACP CCDS Ot J44.9 CHRONIC OBSTRUCTIVE PULMONARY DISEASE, U 06/10/2016 RENETTA KRUSE FACC, VALENTIN FACP CCDS Ot M79.606 PAIN IN LEG, UNSPECIFIED 06/10/2016 RENETTA KRUSE FACC, ALI FACP CCDS Ot R07.89 OTHER CHEST PAIN 06/10/2016 RENETTA KRUSE [facility], ALI FACP CCDS Ot R60.9 EDEMA, UNSPECIFIED 06/10/2016 RENETTA KRUSE FAC, ALI FACP CCDS Ot Z68.34 BODY MASS INDEX (BMI) 34.0-34.9, ADULT 06/10/2016 RENETTA KRUSE FAC, ALI FACP CCDS Ot Z72.0 TOBACCO USE 06/10/2016 RENETTA KRUSE [facility], ALI FACP CCDS Ot Z79.899 OTHER SLIP BRIDGE OPERATOR (CURRENT) DRUG THERAPY 06/30/2016 FLORENCIO HOLLEY MDRA K Ot R56.9 UNSPECIFIED CONVULSIONS 06/30/2016 PRESTON HOLLEY MD K Ot R56.9 UNSPECIFIED CONVULSIONS 07/16/2016 PRESTON HOLLEY MD K Ot R56.9 UNSPECIFIED CONVULSIONS 08/15/2016 PRESTON HOLLEY MD K Ot R56.9 UNSPECIFIED CONVULSIONS 08/15/2016 PRESTON HOLLEY MD K Ot R56.9 UNSPECIFIED CONVULSIONS 08/15/2016 PRESTON HOLLEY MD K Ot Z79.899 OTHER CUSTODIAL (CURRENT) DRUG THERAPY 08/15/2016 PRESTON HOLLEY MD K Ot R56.9 UNSPECIFIED CONVULSIONS 08/15/2016 KAMILLE CHAVEZ DO Ot E66.9 OBESITY, UNSPECIFIED 08/15/2016 KAMILLE CHAVEZ DO Ot J44.9 CHRONIC OBSTRUCTIVE PULMONARY DISEASE, U 08/15/2016 KAMILLE CHAVEZ DO M Ot Z72.0 TOBACCO USE 09/05/2016 KAMILLE CHAVEZ DO Ot E66.9 OBESITY, UNSPECIFIED 09/05/2016 KAMILLE CHAVEZ DO Ot J44.9 CHRONIC OBSTRUCTIVE PULMONARY DISEASE, U 09/05/2016 KAMILLE CHAVEZ DO M Ot Z72.0 TOBACCO USE 09/23/2016 PRESTON HOLLEY MD K Ot R56.9 UNSPECIFIED CONVULSIONS 09/23/2016 PRESTON HOLLEY MD K Ot R56.9 UNSPECIFIED CONVULSIONS 09/23/2016 PRESTON HOLLEY MD K Ot Z79.899 OTHER CUSTODIAL (CURRENT) DRUG THERAPY 09/23/2016 PRESTON HOLLEY MD K Ot R56.9 UNSPECIFIED CONVULSIONS 09/23/2016 KAMILLE CHAVEZ DO Ot E66.9 OBESITY, UNSPECIFIED 09/23/2016 KAMILLE CHAVEZ DO M Ot J44.9 CHRONIC OBSTRUCTIVE PULMONARY DISEASE, U 09/23/2016 KAMILLE CHAVEZ DO M Ot Z72.0 TOBACCO USE 09/23/2016 KAMILLE CHAVEZ DO Ot E66.9 OBESITY, UNSPECIFIED 09/23/2016 SCOTT FOREMAN KAMILLE M Ot J43.9 EMPHYSEMA, UNSPECIFIED 09/23/2016 SCOTT FOREMAN KAMILLE M Ot Z72.0 TOBACCO USE 11/19/2016 SCOTT FOREMAN KAMILLE M Ot E66.9 OBESITY, UNSPECIFIED 11/19/2016 KAMILLE CHAVEZ DO M Ot J43.9 EMPHYSEMA, UNSPECIFIED 11/19/2016 SCOTT FOREMAN KAMILLE M Ot Z72.0 TOBACCO USE 12/21/2016 SCOTT FOREMAN KAMILLE M Ot R06.83 SNORING 12/22/2016 SCOTT FOREMAN KAMILLE M Ot R06.83 SNORING 12/26/2016 SCOTT FOREMAN KAMILLE M Ot R06.83 SNORING 01/14/2017 LEYDI KRUSE, PRESTON Montelongo Ot R56.9 UNSPECIFIED CONVULSIONS 01/20/2017 GLORIA WALDEN DETAIL MANAGER Ot J98.4 OTHER DISORDERS OF LUNG 01/20/2017 GLORIA WALDEN DETAIL MANAGER Ot R56.9 UNSPECIFIED CONVULSIONS 01/23/2017 PRESTON HOLLEY MD K Ot R56.9 UNSPECIFIED CONVULSIONS 01/23/2017 GALA TALLEY DETAIL MANAGER Ot E11.9 TYPE 2 DIABETES MELLITUS WITHOUT COMPLIC 01/23/2017 GALA TALLEY DETAIL MANAGER Ot I10 ESSENTIAL (PRIMARY) HYPERTENSION 01/23/2017 GALA TALLEY DETAIL MANAGER Ot J44.9 CHRONIC OBSTRUCTIVE PULMONARY DISEASE, U 01/23/2017 GALA TALLEY APRN Ot K57.32 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 01/23/2017 GALA TALLEY APRN Ot R19.7 DIARRHEA, UNSPECIFIED 01/23/2017 GALA TALLEY DETAIL MANAGER Ot Z79.84 CUSTODIAL (CURRENT) USE OF ORAL HYPOGLYC 01/23/2017 GALA TALLEY APRN Ot Z79.899 OTHER CUSTODIAL (CURRENT) DRUG THERAPY 01/25/2017 TALLEYGALA GARCIA APRN Ot E11.9 TYPE 2 DIABETES MELLITUS WITHOUT COMPLIC 01/25/2017 GALA TALLEY DETAIL MANAGER Ot I10 ESSENTIAL (PRIMARY) HYPERTENSION 01/25/2017 GALA TALLEY DETAIL MANAGER Ot J44.9 CHRONIC OBSTRUCTIVE PULMONARY DISEASE, U 01/25/2017 GALA TALLEY APRN Ot K57.32 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 01/25/2017 GALA TALLEY APRN Ot R19.7 DIARRHEA, UNSPECIFIED 01/25/2017 GALA TALLEY DETAIL MANAGER Ot Z79.84 SLIP BRIDGE OPERATOR (CURRENT) USE OF ORAL HYPOGLYC 01/25/2017 GALA TALLEY DETAIL MANAGER Ot Z79.899 OTHER CUSTODIAL (CURRENT) DRUG THERAPY 01/27/2017 STIVEN RAYMOND MD Ot E11.9 TYPE 2 DIABETES MELLITUS WITHOUT COMPLIC 01/27/2017 STIVEN RAYMOND MD Ot E86.0 DEHYDRATION 01/27/2017 STIVEN RAYMOND MD Ot F17.210 NICOTINE DEPENDENCE, CIGARETTES, UNCOMPL 01/27/2017 STIVEN RAYMOND MD Ot I10 ESSENTIAL (PRIMARY) HYPERTENSION 01/27/2017 STIVEN RAYMOND MD, Ot J44.9 CHRONIC OBSTRUCTIVE PULMONARY DISEASE, U 01/27/2017 STIVEN RAYMOND MD Ot K57.32 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 01/27/2017 STIVEN RAYMOND MD Ot Z79.84 CUSTODIAL (CURRENT) USE OF ORAL HYPOGLYC 01/27/2017 STIVEN [...] ABS 01/27/2017 STIVEN RAYMOND MD Ot Z79.84 SLIP BRIDGE OPERATOR (CURRENT) USE OF ORAL HYPOGLYC 01/29/2017 GALA TALLEY APRN Ot E11.9 TYPE 2 DIABETES MELLITUS WITHOUT COMPLIC 01/29/2017 GALA TALLEY DETAIL MANAGER Ot I10 ESSENTIAL (PRIMARY) HYPERTENSION 01/29/2017 GALA TALLEY APRN Ot J44.9 CHRONIC OBSTRUCTIVE PULMONARY DISEASE, U 01/29/2017 GALA TALLEY APRN Ot K57.32 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 01/29/2017 GALA TALLEY APRN Ot R19.7 DIARRHEA, UNSPECIFIED 01/29/2017 GALA TALLEY APRN Ot Z79.84 SLIP BRIDGE OPERATOR (CURRENT) USE OF ORAL HYPOGLYC 01/29/2017 GALA TALLEY APRN Ot Z79.899 OTHER CUSTODIAL (CURRENT) DRUG THERAPY 02/12/2017 GLORIA WALDEN APRN Ot J98.4 OTHER DISORDERS OF LUNG 02/12/2017 GLORIA WALDEN APRN Ot R56.9 UNSPECIFIED CONVULSIONS 03/21/2017 GALA TALLEY APRN Ot E11.9 TYPE 2 DIABETES MELLITUS WITHOUT COMPLIC 03/21/2017 GALA TALLEY APRN Ot F17.210 NICOTINE DEPENDENCE, CIGARETTES, UNCOMPL 03/21/2017 GALA TALLEY APRN Ot I10 ESSENTIAL (PRIMARY) HYPERTENSION 03/21/2017 GAAL TALLEY APRN Ot J44.9 CHRONIC OBSTRUCTIVE PULMONARY DISEASE, U 03/21/2017 GALA TALLEY APRN Ot K52.9 NONINFECTIVE GASTROENTERITIS AND COLITIS 03/21/2017 GALA TALLEY APRN Ot K57.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 03/21/2017 GALA TALLEY APRN Ot R19.7 DIARRHEA, UNSPECIFIED 03/21/2017 GALA TALLEY APRN Ot Z79.4 CUSTODIAL (CURRENT) USE OF INSULIN 03/21/2017 GALA TALLEY APRN Ot Z79.82 SLIP BRIDGE OPERATOR (CURRENT) USE OF ASPIRIN 03/21/2017 GALA TALLEY APRN Ot Z79.899 OTHER SLIP BRIDGE OPERATOR (CURRENT) DRUG THERAPY 03/23/2017 GALA TALLEY APRN Ot E11.9 TYPE 2 DIABETES MELLITUS WITHOUT COMPLIC 03/23/2017 GALA TALLEY APRN Ot F17.210 NICOTINE DEPENDENCE, CIGARETTES, UNCOMPL 03/23/2017 TALLEY, PETER J DETAIL MANAGER Ot I10 ESSENTIAL (PRIMARY) HYPERTENSION 03/23/2017 GALA TALLEY APRN Ot J44.9 CHRONIC OBSTRUCTIVE PULMONARY DISEASE, U 03/23/2017 GALA TALLEY APRN Ot K52.9 NONINFECTIVE GASTROENTERITIS AND COLITIS 03/23/2017 GALA TALLEY APRN Ot K57.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 03/23/2017 GALA TALLEY APRN Ot R19.7 DIARRHEA, UNSPECIFIED 03/23/2017 GALA TALLEY APRN Ot Z79.4 CUSTODIAL (CURRENT) USE OF INSULIN 03/23/2017 GALA TALLEY DETAIL MANAGER Ot Z79.82 CUSTODIAL (CURRENT) USE OF ASPIRIN 03/23/2017 GALA TALLEY APRN Ot Z79.899 OTHER SLIP BRIDGE OPERATOR (CURRENT) DRUG THERAPY 03/24/2017 GALA TALLEY DETAIL MANAGER Ot E11.9 TYPE 2 DIABETES MELLITUS WITHOUT COMPLIC 03/24/2017 GALA TALLEY APRN Ot I10 ESSENTIAL (PRIMARY) HYPERTENSION 03/24/2017 GALA TALLEY APRN Ot J44.9 CHRONIC OBSTRUCTIVE PULMONARY DISEASE, U 03/24/2017 GALA TALLEY APRN Ot R07.9 CHEST PAIN, UNSPECIFIED 03/24/2017 GALA TALLEY APRN Ot Z79.4 CUSTODIAL (CURRENT) USE OF INSULIN 03/24/2017 GALA TALLEY APRN Ot Z79.82 CUSTODIAL (CURRENT) USE OF ASPIRIN 03/24/2017 GALA TALLEY DETAIL MANAGER Ot Z79.899 OTHER CUSTODIAL (CURRENT) DRUG THERAPY 03/26/2017 GALA TALLEY APRN Ot E11.9 TYPE 2 DIABETES MELLITUS WITHOUT COMPLIC 03/26/2017 GALA TALLEY DETAIL MANAGER Ot I10 ESSENTIAL (PRIMARY) HYPERTENSION 03/26/2017 GALA TALLEY APRN Ot J44.9 CHRONIC OBSTRUCTIVE PULMONARY DISEASE, U 03/26/2017 GALA TALLEY DETAIL MANAGER Ot R07.9 CHEST PAIN, UNSPECIFIED 03/26/2017 GALA TALLEY DETAIL MANAGER Ot Z79.4 SLIP BRIDGE OPERATOR (CURRENT) USE OF INSULIN 03/26/2017 GALA TALLEY DETAIL MANAGER Ot Z79.82 SLIP BRIDGE OPERATOR (CURRENT) USE OF ASPIRIN 03/26/2017 GALA TALLEY DETAIL MANAGER Ot Z79.899 OTHER CUSTODIAL (CURRENT) DRUG THERAPY 03/27/2017 GALA TALLEY APRN Ot E11.9 TYPE 2 DIABETES MELLITUS WITHOUT COMPLIC 03/27/2017 GALA TALLEY APRN Ot I10 ESSENTIAL (PRIMARY) HYPERTENSION 03/27/2017 GALA TALLEY APRN Ot J44.9 CHRONIC OBSTRUCTIVE PULMONARY DISEASE, U 03/27/2017 GALA TALLEY APRN Ot R07.9 CHEST PAIN, UNSPECIFIED 03/27/2017 GALA TALLEY APRN Ot Z79.4 SLIP BRIDGE OPERATOR (CURRENT) USE OF INSULIN 03/27/2017 GALA TALLEY APRN Ot Z79.82 CUSTODIAL (CURRENT) USE OF ASPIRIN 03/27/2017 GALA TALLEY APRN Ot Z79.899 OTHER CUSTODIAL (CURRENT) DRUG THERAPY 03/28/2017 TYLER CHUNG MD Ot E11.9 TYPE 2 DIABETES MELLITUS WITHOUT COMPLIC 03/28/2017 TYLER CHUNG MD Ot F17.210 NICOTINE DEPENDENCE, CIGARETTES, UNCOMPL 03/28/2017 TYLER CHUNG MD Ot I10 ESSENTIAL (PRIMARY) HYPERTENSION 03/28/2017 TYLER CHUNG MD Ot I25.2 OLD MYOCARDIAL INFARCTION 03/28/2017 TYLER CHUNG MD Ot J44.9 CHRONIC OBSTRUCTIVE PULMONARY DISEASE, U 03/28/2017 TYLER CHUNG MD Ot N95.1 MENOPAUSAL AND FEMALE CLIMACTERIC STATES 03/28/2017 TYLER CHUNG MD Ot R61 GENERALIZED HYPERHIDROSIS 03/28/2017 TYLER CHUNG MD Ot Z79.82 SLIP BRIDGE OPERATOR (CURRENT) USE OF ASPIRIN 03/28/2017 TYLER CHUNG MD Ot Z79.899 OTHER CUSTODIAL (CURRENT) DRUG THERAPY 03/30/2017 DEVI FOREMAN, JOSSELIN K Ot E11.9 TYPE 2 DIABETES MELLITUS WITHOUT COMPLIC 03/30/2017 DEVI DO, JOSSELIN K Ot F17.210 NICOTINE DEPENDENCE, CIGARETTES, UNCOMPL 03/30/2017 DEVI DO, JOSSELIN K Ot F41.9 ANXIETY DISORDER, UNSPECIFIED 03/30/2017 DEVI DO, JOSSELIN K Ot I10 ESSENTIAL (PRIMARY) HYPERTENSION 03/30/2017 DEVI DO JOSSELIN K Ot J44.9 CHRONIC OBSTRUCTIVE PULMONARY DISEASE, U 03/30/2017 DEVI DO, JOSSELIN K Ot R06.02 SHORTNESS OF BREATH 03/30/2017 DEVI DO, JOSSELIN K Ot R06.4 HYPERVENTILATION 03/30/2017 DEVI DO, JOSSELIN K Ot R19.7 DIARRHEA, UNSPECIFIED 03/30/2017 DEVI DO, JOSSELIN K Ot Z79.4 SLIP BRIDGE OPERATOR (CURRENT) USE OF INSULIN 03/30/2017 DEVI , JOSSELIN K Ot Z79.82 SLIP BRIDGE OPERATOR (CURRENT) USE OF ASPIRIN 04/02/2017 GALA TALLEY APRN Ot E11.9 TYPE 2 DIABETES MELLITUS WITHOUT COMPLIC 04/02/2017 GALA TALLEY APRN Ot F17.210 NICOTINE DEPENDENCE, CIGARETTES, UNCOMPL 04/02/2017 GALA TALLEY APRN Ot I10 ESSENTIAL (PRIMARY) HYPERTENSION 04/02/2017 GALA TALLEY APRN Ot J44.9 CHRONIC OBSTRUCTIVE PULMONARY DISEASE, U 04/02/2017 GALA TALLEY APRN Ot K52.9 NONINFECTIVE GASTROENTERITIS AND COLITIS 04/02/2017 GALA TALLEY APRN Ot K57.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 04/02/2017 GALA TALLEY APRN Ot R19.7 DIARRHEA, UNSPECIFIED 04/02/2017 GALA TALLEY APRN Ot Z79.4 SLIP BRIDGE OPERATOR (CURRENT) USE OF INSULIN 04/02/2017 GALA TALLEY APRN Ot Z79.82 CUSTODIAL (CURRENT) USE OF ASPIRIN 04/02/2017 GALA TALLEY DETAIL MANAGER Ot Z79.899 OTHER SLIP BRIDGE OPERATOR (CURRENT) DRUG THERAPY 04/02/2017 DEVI DO, JOSSELIN K Ot E11.9 TYPE 2 DIABETES MELLITUS WITHOUT COMPLIC 04/02/2017 DEVI DO, JOSSELIN K Ot F17.210 NICOTINE DEPENDENCE, CIGARETTES, UNCOMPL 04/02/2017 DEVI DO, JOSSELIN K Ot F41.9 ANXIETY DISORDER, UNSPECIFIED 04/02/2017 DEVI DO, JOSSELIN K Ot I10 ESSENTIAL (PRIMARY) HYPERTENSION 04/02/2017 DEVI DO, JOSSELIN K Ot J44.9 CHRONIC OBSTRUCTIVE PULMONARY DISEASE, U 04/02/2017 DEVI DO, JOSSELIN K Ot R06.02 SHORTNESS OF BREATH 04/02/2017 DEVI DO, JOSSELIN K Ot R06.4 HYPERVENTILATION 04/02/2017 DEVI DO, JOSSELIN K Ot R19.7 DIARRHEA, UNSPECIFIED 04/02/2017 DEVI DO JOSSELIN K Ot Z79.4 CUSTODIAL (CURRENT) USE OF INSULIN 04/02/2017 JOSSELIN QUINONEZ DO K Ot Z79.82 SLIP BRIDGE OPERATOR (CURRENT) USE OF ASPIRIN 04/03/2017 TYLER CHUNG MD Ot E11.9 TYPE 2 DIABETES MELLITUS WITHOUT COMPLIC 04/03/2017 TYLER CHUNG MD Ot F17.210 NICOTINE DEPENDENCE, CIGARETTES, UNCOMPL 04/03/2017 TYLER CHUNG MD Ot I10 ESSENTIAL (PRIMARY) HYPERTENSION 04/03/2017 TYLER CHUNG MD Ot I25.2 OLD MYOCARDIAL INFARCTION 04/03/2017 TYLER CHUNG MD Ot J44.9 CHRONIC OBSTRUCTIVE PULMONARY DISEASE, U 04/03/2017 TYLER CHUNG MD Ot N95.1 MENOPAUSAL AND FEMALE CLIMACTERIC STATES 04/03/2017 TYLER CHUNG MD Ot R61 GENERALIZED HYPERHIDROSIS 04/03/2017 TYLER CHUNG MD Ot Z79.82 SLIP BRIDGE OPERATOR (CURRENT) USE OF ASPIRIN 04/03/2017 TYLER CHUNG MD Ot Z79.899 OTHER SLIP BRIDGE OPERATOR (CURRENT) DRUG THERAPY 04/19/2017 GLORIA WALDEN APRN Ot J98.4 OTHER DISORDERS OF LUNG 04/19/2017 GLORIA WALDEN APRN Ot R56.9 UNSPECIFIED CONVULSIONS 06/27/2017 TYLER CHUNG MD Ot E11.9 TYPE 2 DIABETES MELLITUS WITHOUT COMPLIC 06/27/2017 TYLER CHUNG MD Ot F17.210 NICOTINE DEPENDENCE, CIGARETTES, UNCOMPL 06/27/2017 TYLER CHUNG MD Ot I10 ESSENTIAL (PRIMARY) HYPERTENSION 06/27/2017 TYLER CHUNG MD Ot I25.2 OLD MYOCARDIAL INFARCTION 06/27/2017 TYLER CHUNG MD, Ot J44.9 CHRONIC OBSTRUCTIVE PULMONARY DISEASE, U 06/27/2017 TYLER CHUNG MD Ot N95.1 MENOPAUSAL AND FEMALE CLIMACTERIC STATES 06/27/2017 TYLER CHUNG MD Ot R61 GENERALIZED HYPERHIDROSIS 06/27/2017 TYLER CHUNG MD Ot Z79.82 SLIP BRIDGE OPERATOR (CURRENT) USE OF ASPIRIN 06/27/2017 TYLER CHUNG MD Ot Z79.899 OTHER CUSTODIAL (CURRENT) DRUG THERAPY 07/01/2017 TYLER CHUNG MD Ot E11.9 TYPE 2 DIABETES MELLITUS WITHOUT COMPLIC 07/01/2017 TYLER CHUNG MD Ot F17.210 NICOTINE DEPENDENCE, CIGARETTES, UNCOMPL 07/01/2017 TYLER CHUNG MD Ot I10 ESSENTIAL (PRIMARY) HYPERTENSION 07/01/2017 TYLER CHUNG MD Ot I25.2 OLD MYOCARDIAL INFARCTION 07/01/2017 TYLER CHUNG MD Ot J44.9 CHRONIC OBSTRUCTIVE PULMONARY DISEASE, U 07/01/2017 TYLER CHUNG MD Ot N95.1 MENOPAUSAL AND FEMALE CLIMACTERIC STATES 07/01/2017 TYLER CHUNG MD Ot R61 GENERALIZED HYPERHIDROSIS 07/01/2017 TYLER CHUNG MD Ot Z79.82 CUSTODIAL (CURRENT) USE OF ASPIRIN 07/01/2017 TYLER CHUNG MD Ot Z79.899 OTHER SLIP BRIDGE OPERATOR (CURRENT) DRUG THERAPY 01/24/2018 PRESTON HOLLEY MD Ot R56.9 UNSPECIFIED CONVULSIONS 01/24/2018 PRESTON HOLLEY MD Ot R56.9 UNSPECIFIED CONVULSIONS 01/24/2018 PRESTON HOLLEY MD Ot Z79.899 OTHER CUSTODIAL (CURRENT) DRUG THERAPY 01/24/2018 PRESTON HOLLEY MD Ot R56.9 UNSPECIFIED CONVULSIONS 01/24/2018 KAMILLE CHAVEZ DO Ot E66.9 OBESITY, UNSPECIFIED 01/24/2018 KAMILLE CHAVEZ DO Ot J44.9 CHRONIC OBSTRUCTIVE PULMONARY DISEASE, U 01/24/2018 KAMILLE CHAVEZ DO Ot Z72.0 TOBACCO USE 01/24/2018 KAMILLE CHAVEZ DO Ot E66.9 OBESITY, UNSPECIFIED 01/24/2018 KAMILLE CHAVEZ DO Ot J43.9 EMPHYSEMA, UNSPECIFIED 01/24/2018 KAMILLE CHAVEZ DO Ot Z72.0 TOBACCO USE 01/24/2018 PRESTON HOLLEY MD Ot R56.9 UNSPECIFIED CONVULSIONS 01/24/2018 GLORIA WALDEN APRN Ot J98.4 OTHER DISORDERS OF LUNG 01/24/2018 IRAM, GLORIA E DETAIL MANAGER Ot R56.9 UNSPECIFIED CONVULSIONS 01/24/2018 PRESTON HOLLEY MD Ot R56.9 UNSPECIFIED CONVULSIONS 01/24/2018 PRESTON HOLLEY MD Ot R56.9 UNSPECIFIED CONVULSIONS 01/24/2018 PRESTON HOLLEY MD Ot Z79.899 OTHER SLIP BRIDGE OPERATOR (CURRENT) DRUG THERAPY 01/24/2018 PRESTON HOLLEY MD Ot R56.9 UNSPECIFIED CONVULSIONS 01/24/2018 KAMILLE CHAVEZ DO Ot E66.9 OBESITY, UNSPECIFIED 01/24/2018 KAMILLE CHAVEZ DO Ot J44.9 CHRONIC OBSTRUCTIVE PULMONARY DISEASE, U 01/24/2018 KAMILLE CHAVEZ DO Ot Z72.0 TOBACCO USE 01/24/2018 KAMILLE CHAVEZ DO Ot E66.9 OBESITY, UNSPECIFIED 01/24/2018 KAMILLE CHAVEZ DO Ot J43.9 EMPHYSEMA, UNSPECIFIED 01/24/2018 KAMILLE CHAVEZ DO M Ot Z72.0 TOBACCO USE 01/24/2018 PRESTON HOLLEY MD Ot R56.9 UNSPECIFIED CONVULSIONS 01/24/2018 GLORIA WALDEN APRN Ot J98.4 OTHER DISORDERS OF LUNG 01/24/2018 GLORIA WALDEN APRN Ot R56.9 UNSPECIFIED CONVULSIONS 01/26/2018 JACKY CORONEL Ot E03.9 HYPOTHYROIDISM, UNSPECIFIED 01/26/2018 JACKY CORONEL Ot E11.9 TYPE 2 DIABETES MELLITUS WITHOUT COMPLIC 01/26/2018 JACKY CORONEL Ot E78.00 PURE HYPERCHOLESTEROLEMIA, UNSPECIFIED 01/26/2018 JACKY CORONEL Ot F17.210 NICOTINE DEPENDENCE, CIGARETTES, UNCOMPL 01/26/2018 JACKY CORONEL Ot F31.9 BIPOLAR DISORDER, UNSPECIFIED 01/26/2018 JACKY CORONEL Ot G47.9 SLEEP DISORDER, UNSPECIFIED 01/26/2018 JACKY CORONEL Ot I25.2 OLD MYOCARDIAL INFARCTION 01/26/2018 JACKY CORONEL Ot J11.1 FLU DUE TO UNIDENTIFIED INFLUENZA VIRUS 01/26/2018 JACKY CORONEL Ot J43.9 EMPHYSEMA, UNSPECIFIED 01/26/2018 JACKY CORONEL Ot N39.0 URINARY TRACT INFECTION, SITE NOT SPECIF 01/26/2018 JACKY CORONEL Ot R11.2 NAUSEA WITH VOMITING, UNSPECIFIED 01/26/2018 JACKY CORONEL Ot R19.7 DIARRHEA, UNSPECIFIED 01/26/2018 JACKY CORONEL Ot Z79.4 CUSTODIAL (CURRENT) USE OF INSULIN 01/26/2018 JACKY CORONEL Ot Z79.82 SLIP BRIDGE OPERATOR (CURRENT) USE OF ASPIRIN 01/26/2018 JACKY CORONEL Ot Z88.0 ALLERGY STATUS TO PENICILLIN 01/26/2018 JACKY CORONEL Ot Z90.49 ACQUIRED ABSENCE OF OTHER SPECIFIED PART 01/26/2018 JACKY CORONEL Ot Z90.710 ACQUIRED ABSENCE OF BOTH CERVIX AND UTER 01/26/2018 JACKY CORONEL Ot Z90.89 ACQUIRED ABSENCE OF OTHER ORGANS 01/26/2018 A 465.8 ACUTE UPPER RESPIRATORY INFECTIONS OF OTHER MULTIPLE SITES 01/26/2018 W 491.20 OBSTRUCTIVE CHRONIC BRONCHITIS, WITHOUT EXACERBATION 01/26/2018 W 786.05 SHORTNESS OF BREATH 01/26/2018 A J06.9 ACUTE UPPER RESPIRATORY INFECTION, UNSPECIFIED 01/26/2018 W J44.9 CHRONIC OBSTRUCTIVE PULMONARY DISEASE, UNSPECIFIED 01/26/2018 W R06.02 SHORTNESS OF BREATH Procedures There is no data. Results Test Result Range Complete blood count (CBC) with automated white blood cell (WBC) differential - 01/19/17 11:00 Blood leukocytes automated count (number/volume) 6.1 10*3/uL 4.3-11.0 Blood erythrocytes automated count (number/volume) 4.23 10*6/uL 4.35-5.85 Venous blood hemoglobin measurement (mass/volume) 14.1 [...] Automated blood platelet mean volume measurement 9.1 [foz_us] 7.4-10.4 Automated blood neutrophils/100 leukocytes 64 % [...] Serum or plasma sodium measurement (moles/volume) 140 mmol/L 135-145 Serum or plasma potassium measurement (moles/volume) 4.5 mmol/L 3.6-5.0 Serum or plasma chloride measurement (moles/volume) 107 mmol/L 98-107 Carbon dioxide 24 mmol/L 21-32 Serum or plasma anion gap determination (moles/volume) 9 mmol/L 5-14 Serum or plasma urea nitrogen measurement (mass/volume) 9 mg/dL 7-18 Serum or plasma creatinine measurement (mass/volume) 0.81 mg/dL 0.60-1.30 Serum or plasma urea nitrogen/creatinine mass [...] 13:15 Blood leukocytes automated count (number/volume) 7.4 10*3/uL 4.3-11.0 Blood erythrocytes automated count (number/volume) 4.59 10*6/uL 4.35-5.85 Venous blood hemoglobin measurement (mass/volume) 15.1 [...] Automated blood platelet mean volume measurement 9.6 [foz_us] 7.4-10.4 Automated blood neutrophils/100 leukocytes 70 % [...] Serum or plasma sodium measurement (moles/volume) 138 mmol/L 135-145 Serum or plasma potassium measurement (moles/volume) 4.3 mmol/L 3.6-5.0 Serum or plasma chloride measurement (moles/volume) 102 mmol/L 98-107 Carbon dioxide 21 mmol/L 21-32 Serum or plasma anion gap determination (moles/volume) 15 mmol/L 5-14 Serum or plasma urea nitrogen measurement (mass/volume) 7 mg/dL 7-18 Serum or plasma creatinine measurement (mass/volume) 0.89 mg/dL 0.60-1.30 Serum or plasma urea nitrogen/creatinine mass [...] A AND B ANTIGENS BY [facility] Urine drug screening test - [...] YELLOW NRG Urine clarity determination SLIGHTLY CLOUDY NR Urine pH measurement by test strip 7 5-9 Specific gravity of urine by test strip 1.005 1.016- 1.022 Urine protein assay by test strip, semi-quantitative [...] 10:25 Blood leukocytes automated count (number/volume) 6.2 10*3/uL 4.3-11.0 Blood erythrocytes automated count (number/volume) 4.49 10*6/uL 4.35-5.85 Venous blood hemoglobin measurement (mass/volume) 14.9 [...] Automated blood platelet mean volume measurement 9.9 [foz_us] 7.4-10.4 Automated blood neutrophils/100 leukocytes 71 % [...] Serum or plasma sodium measurement (moles/volume) 135 mmol/L 135-145 Serum or plasma potassium measurement (moles/volume) 4.8 mmol/L 3.6-5.0 Serum or plasma chloride measurement (moles/volume) 105 mmol/L 98-107 Carbon dioxide 21 mmol/L 21-32 Serum or plasma anion gap determination (moles/volume) 9 mmol/L 5-14 Serum or plasma urea nitrogen measurement (mass/volume) 10 mg/dL 7-18 Serum or plasma creatinine measurement (mass/volume) 0.96 mg/dL 0.60-1.30 Serum or plasma urea nitrogen/creatinine mass [...] - 01/26/17 12:04 Bacterial blood culture NG NR Capillary blood glucose measurement by glucometer (mass/volume) [...] 05:45 Blood leukocytes automated count (number/volume) 4.8 10*3/uL 4.3-11.0 Blood erythrocytes automated count (number/volume) 3.64 10*6/uL 4.35-5.85 Venous blood hemoglobin measurement (mass/volume) 12.0 [...] Automated blood platelet mean volume measurement 9.2 [foz_us] 7.4-10.4 Automated blood neutrophils/100 leukocytes 68 % [...] Serum or plasma sodium measurement (moles/volume) 140 mmol/L 135-145 Serum or plasma potassium measurement (moles/volume) 3.4 mmol/L 3.6-5.0 Serum or plasma chloride measurement (moles/volume) 106 mmol/L 98-107 Carbon dioxide 25 mmol/L 21-32 Serum or plasma anion gap determination (moles/volume) 9 mmol/L 5-14 Serum or plasma urea nitrogen measurement (mass/volume) 6 mg/dL 7-18 Serum or plasma creatinine measurement (mass/volume) 0.80 mg/dL 0.60-1.30 Serum or plasma urea nitrogen/creatinine mass [...] measurement by glucometer (mass/volume) 259 mg/dL 70-110 Microalb/Creat Ratio, Randm Ur - 02/06/17 10:32 Creatinine, Urine 256.6 mg/dL Not Estab. Microalbumin, Urine 8.4 ug/mL Not Estab. Microalb/Creat Ratio 3.3 mg/g creat 0.0-30.0 CBC With Differential/Platelet - 03/10/17 10:09 WBC 4.7 x10E3/uL 3.4-10.8 RBC 4.47 x10E6/uL 3.77-5.28 Hemoglobin 14.5 g/dL 11.1-15.9 Hematocrit 43.3 % 34.0-46.6 MCV 97 fL 79-97 MCH 32.4 pg 26.6-33.0 MCHC 33.5 g/dL 31.5-35.7 RDW 14.1 % 12.3-15.4 Platelets 269 x10E3/uL 150-379 Neutrophils 64 % Lymphs 27 % Monocytes 5 % Eos 3 % Basos 1 % Neutrophils (Absolute) 3.0 x10E3/uL 1.4-7.0 Lymphs (Absolute) 1.3 x10E3/uL 0.7-3.1 Monocytes(Absolute) 0.3 x10E3/uL 0.1-0.9 Eos (Absolute) 0.1 x10E3/uL 0.0-0.4 Baso (Absolute) 0.0 x10E3/uL 0.0-0.2 Immature Granulocytes 0 % Immature Grans (Abs) 0.0 x10E3/uL 0.0-0.1 Comp. Metabolic Panel (14) - 03/10/17 10:09 Glucose, Serum 137 mg/dL 65-99 BUN 11 mg/dL 6-24 Creatinine, Serum 0.74 mg/dL 0.57-1.00 eGFR If NonAfricn Am 97 mL/min/1.73 >59 eGFR If Africn Am 112 mL/min/1.73 >59 BUN/Creatinine Ratio 15 9-23 Sodium, Serum 142 mmol/L 134-144 Potassium, Serum 4.4 mmol/L 3.5-5.2 Chloride, Serum 101 mmol/L 96-106 Carbon Dioxide, Total 26 mmol/L 18-29 Calcium, Serum 9.5 mg/dL 8.7-10.2 Protein, Total, Serum 6.7 g/dL 6.0-8.5 Albumin, Serum 4.6 g/dL 3.5-5.5 Globulin, Total 2.1 g/dL 1.5-4.5 A/G Ratio 2.2 1.2-2.2 Bilirubin, Total 0.3 mg/dL 0.0-1.2 Alkaline Phosphatase, S 72 IU/L 39-117 AST (SGOT) 22 IU/L 0-40 ALT (SGPT) 30 IU/L 0-32 Lipid Panel - 03/10/17 10:09 Cholesterol, Total 219 mg/dL 100-199 Triglycerides 204 mg/dL 0-149 HDL Cholesterol 45 mg/dL >39 VLDL Cholesterol Abe 41 mg/dL 5-40 LDL Cholesterol Calc 133 mg/dL 0-99 TSH - 03/10/17 10:09 TSH 2.600 uIU/mL 0.450-4.500 Complete urinalysis with reflex to culture - 03/21/17 09:26 Urine color determination YELLOW NRG Urine clarity determination CLEAR NRG Urine pH measurement by test strip 6 5-9 Specific gravity of urine by test strip 1.020 1.016- 1.022 Urine protein assay by test strip, semi-quantitative NEGATIVE NEGATIVE Urine glucose detection by automated test strip NEGATIVE NEGATIVE Erythrocytes detection in urine sediment by light microscopy NEGATIVE NEGATIVE Urine ketones detection by automated test strip NEGATIVE NEGATIVE Urine nitrite detection by test strip NEGATIVE NEGATIVE Urine total bilirubin detection by test strip NEGATIVE NEGATIVE Urine urobilinogen measurement by automated test strip (mass/volume) NORMAL NORMAL Urine leukocyte esterase detection by dipstick NEGATIVE NEGATIVE Automated urine sediment erythrocyte count by microscopy (number/high power field) NONE NRG Automated urine sediment leukocyte count by microscopy (number/high power field ) NONE NRG Bacteria detection in urine sediment by light microscopy FEW NRG Squamous epithelial cells detection in urine sediment by light microscopy 2-5 NRG Crystals detection in urine sediment by light microscopy NONE NRG Casts detection in urine sediment by light microscopy NONE NRG Mucus detection in urine sediment by light microscopy NEGATIVE NRG Complete urinalysis with reflex to culture NO NRG C DIFFICILE AG + TOXIN A/B. - 03/21/17 09:26 C DIFFICILE AG + TOXIN A/B. TNP NRG Stool bacteria identification by culture - 03/21/17 09:26 NOT CULTURED VIBRIOTYERS VIBRIO AND YERSINIA NOT ROUTINELY CULTURED FOR IN THIS LAB NRG NEGATIVE FOR 0157 NEGATIVE FOR E COLI 0157 NRG NEGATIVE FOR CAMPY NEGATIVE FOR CAMPYLOBACTER NRG NEGATIVE FOR SHIGELLA NEGATIVE FOR SHIGELLA NRG NEGATIVE FOR SALMONELLA NEGATIVE FOR SALMONELLA NRG Complete blood count (CBC) with automated white blood cell (WBC) differential - 03/21/17 10:00 Blood leukocytes automated count (number/volume) 6.6 10*3/uL 4.3-11.0 Blood erythrocytes automated count (number/volume) 4.58 10*6/uL 4.35-5.85 Venous blood hemoglobin measurement (mass/volume) 14.9 g/dL 11.5-16.0 Blood hematocrit (volume fraction) 44 % 35-52 Automated erythrocyte mean corpuscular volume 96 [foz_us] 80-99 Automated erythrocyte mean corpuscular hemoglobin (mass per erythrocyte) 33 pg 25-34 Automated erythrocyte mean corpuscular hemoglobin concentration measurement ( mass/volume) 34 g/dL 32-36 Automated erythrocyte distribution width ratio 13.2 % 10.0-14.5 Automated blood platelet count (count/volume) 240 10*3/uL 130-400 Automated blood platelet mean volume measurement 10.7 [foz_us] 7.4-10.4 Automated blood neutrophils/100 leukocytes 68 % 42-75 Automated blood lymphocytes/100 leukocytes 24 % 12-44 Blood monocytes/100 leukocytes 5 % 0-12 Automated blood eosinophils/100 leukocytes 2 % 0-10 Automated blood basophils/100 leukocytes 1 % 0-10 Blood neutrophils automated count (number/volume) 4.5 10*3 1.8-7.8 Blood lymphocytes automated count (number/volume) 1.6 10*3 1.0-4.0 Blood monocytes automated count (number/volume) 0.3 10*3 0.0-1.0 Automated eosinophil count 0.2 10*3/uL 0.0-0.3 Automated blood basophil count (count/volume) 0.0 10*3/uL 0.0-0.1 Comprehensive metabolic panel - 03/21/17 10:00 Serum or plasma sodium measurement (moles/volume) 140 mmol/L 135-145 Serum or plasma potassium measurement (moles/volume) 3.9 mmol/L 3.6-5.0 Serum or plasma chloride measurement (moles/volume) 103 mmol/L 98-107 Carbon dioxide 25 mmol/L 21-32 Serum or plasma anion gap determination (moles/volume) 12 mmol/L 5-14 Serum or plasma urea nitrogen measurement (mass/volume) 12 mg/dL 7-18 Serum or plasma creatinine measurement (mass/volume) 0.83 mg/dL 0.60-1.30 Serum or plasma urea nitrogen/creatinine mass ratio 14 NRG Serum or plasma creatinine measurement with calculation of estimated glomerular filtration rate > NRG Serum or plasma glucose measurement (mass/volume) 134 mg/dL 70-105 Serum or plasma calcium measurement (mass/volume) 9.4 mg/dL 8.5-10.1 Serum or plasma total bilirubin measurement (mass/volume) 0.6 mg/dL 0.1-1.0 Serum or plasma alkaline phosphatase measurement (enzymatic activity/volume) 72 U/L 40-136 Serum or plasma aspartate aminotransferase measurement (enzymatic activity/ volume) 23 U/L 5-34 Serum or plasma alanine aminotransferase measurement (enzymatic activity/volume ) 32 U/L 0-55 Serum or plasma protein measurement (mass/volume) 6.6 g/dL 6.4-8.2 Serum or plasma albumin measurement (mass/volume) 4.3 g/dL 3.2-4.5 THYROID STIMULATING HORMONE - 03/21/17 10:00 THYROID STIMULATING HORMONE 2.13 u[iU]/mL 0.35-4.94 Complete blood count (CBC) with automated white blood cell (WBC) differential - 03/24/17 13:26 Blood leukocytes automated count (number/volume) 6.7 10*3/uL 4.3-11.0 Blood erythrocytes automated count (number/volume) 4.80 10*6/uL 4.35-5.85 Venous blood hemoglobin measurement (mass/volume) 15.7 g/dL 11.5-16.0 Blood hematocrit (volume fraction) 45 % 35-52 Automated erythrocyte mean corpuscular volume 94 [foz_us] 80-99 Automated erythrocyte mean corpuscular hemoglobin (mass per erythrocyte) 33 pg 25-34 Automated erythrocyte mean corpuscular hemoglobin concentration measurement ( mass/volume) 35 g/dL 32-36 Automated erythrocyte distribution width ratio 12.9 % 10.0-14.5 Automated blood platelet count (count/volume) 272 10*3/uL 130-400 Automated blood platelet mean volume measurement 10.2 [foz_us] 7.4-10.4 Automated blood neutrophils/100 leukocytes 68 % 42-75 Automated blood lymphocytes/100 leukocytes 22 % 12-44 Blood monocytes/100 leukocytes 8 % 0-12 Automated blood eosinophils/100 leukocytes 2 % 0-10 Automated blood basophils/100 leukocytes 0 % 0-10 Blood neutrophils automated count (number/volume) 4.5 10*3 1.8-7.8 Blood lymphocytes automated count (number/volume) 1.5 10*3 1.0-4.0 Blood monocytes automated count (number/volume) 0.5 10*3 0.0-1.0 Automated eosinophil count 0.1 10*3/uL 0.0-0.3 Automated blood basophil count (count/volume) 0.0 10*3/uL 0.0-0.1 PT panel in platelet poor plasma by coagulation assay - 03/24/17 13:26 Prothrombin time (PT) in platelet poor plasma by coagulation assay 11.9 s 12.2-14.7 INR in platelet poor plasma or blood by coagulation assay 0.9 0.8-1.4 Activated partial thromboplastin time (aPTT) in platelet poor plasma bycoagulation assay - 03/24/17 13:26 Activated partial thromboplastin time (aPTT) in platelet poor plasma bycoagulation assay 31 s 24-35 Comprehensive metabolic panel - 03/24/17 13:26 Serum or plasma sodium measurement (moles/volume) 138 mmol/L 135-145 Serum or plasma potassium measurement (moles/volume) 4.0 mmol/L 3.6-5.0 Serum or plasma chloride measurement (moles/volume) 101 mmol/L 98-107 Carbon dioxide 25 mmol/L 21-32 Serum or plasma anion gap determination (moles/volume) 12 mmol/L 5-14 Serum or plasma urea nitrogen measurement (mass/volume) 14 mg/dL 7-18 Serum or plasma creatinine measurement (mass/volume) 0.80 mg/dL 0.60-1.30 Serum or plasma urea nitrogen/creatinine mass ratio 18 NRG Serum or plasma creatinine measurement with calculation of estimated glomerular filtration rate > NRG Serum or plasma glucose measurement (mass/volume) 153 mg/dL 70-105 Serum or plasma calcium measurement (mass/volume) 9.9 mg/dL 8.5-10.1 Serum or plasma total bilirubin measurement (mass/volume) 0.5 mg/dL 0.1-1.0 Serum or plasma alkaline phosphatase measurement (enzymatic activity/volume) 76 U/L 40-136 Serum or plasma aspartate aminotransferase measurement (enzymatic activity/ volume) 19 U/L 5-34 Serum or plasma alanine aminotransferase measurement (enzymatic activity/volume ) 33 U/L 0-55 Serum or plasma protein measurement (mass/volume) 8.0 g/dL 6.4-8.2 Serum or plasma albumin measurement (mass/volume) 4.8 g/dL 3.2-4.5 Magnesium - 03/24/17 13:26 Magnesium 2.2 mg/dL 1.8-2.4 Serum or plasma troponin i.cardiac measurement (mass/volume) - 03/24/17 13:26 Serum or plasma troponin i.cardiac measurement (mass/volume) < ng/ mL <0.30 Myoglobin, serum - 03/24/17 13:26 Myoglobin, serum 15.8 ng/mL 10.0-92.0 Serum or plasma troponin i.cardiac measurement (mass/volume) - 03/24/17 15:00 Serum or plasma troponin i.cardiac measurement (mass/volume) < ng/ mL <0.30 Complete blood count (CBC) with automated white blood cell (WBC) differential - 03/28/17 14:01 Blood leukocytes automated count (number/volume) 7.3 10*3/uL 4.3-11.0 Blood erythrocytes automated count (number/volume) 4.33 10*6/uL 4.35-5.85 Venous blood hemoglobin measurement (mass/volume) 14.3 g/dL 11.5-16.0 Blood hematocrit (volume fraction) 42 % 35-52 Automated erythrocyte mean corpuscular volume 97 [foz_us] 80-99 Automated erythrocyte mean corpuscular hemoglobin (mass per erythrocyte) 33 pg 25-34 Automated erythrocyte mean corpuscular hemoglobin concentration measurement ( mass/volume) 34 g/dL 32-36 Automated erythrocyte distribution width ratio 13.2 % 10.0-14.5 Automated blood platelet count (count/volume) 263 10*3/uL 130-400 Automated blood platelet mean volume measurement 11.1 [foz_us] 7.4-10.4 Automated blood neutrophils/100 leukocytes 71 % 42-75 Automated blood lymphocytes/100 leukocytes 22 % 12-44 Blood monocytes/100 leukocytes 5 % 0-12 Automated blood eosinophils/100 leukocytes 1 % 0-10 Automated blood basophils/100 leukocytes 1 % 0-10 Blood neutrophils automated count (number/volume) 5.1 10*3 1.8-7.8 Blood lymphocytes automated count (number/volume) 1.6 10*3 1.0-4.0 Blood monocytes automated count (number/volume) 0.4 10*3 0.0-1.0 Automated eosinophil count 0.1 10*3/uL 0.0-0.3 Automated blood basophil count (count/volume) 0.0 10*3/uL 0.0-0.1 Comprehensive metabolic panel - 03/28/17 14:01 Serum or plasma sodium measurement (moles/volume) 138 mmol/L 135-145 Serum or plasma potassium measurement (moles/volume) 4.0 mmol/L 3.6-5.0 Serum or plasma chloride measurement (moles/volume) 106 mmol/L 98-107 Carbon dioxide 19 mmol/L 21-32 Serum or plasma anion gap determination (moles/volume) 13 mmol/L 5-14 Serum or plasma urea nitrogen measurement (mass/volume) 13 mg/dL 7-18 Serum or plasma creatinine measurement (mass/volume) 0.93 mg/dL 0.60-1.30 Serum or plasma urea nitrogen/creatinine mass ratio 14 NRG Serum or plasma creatinine measurement with calculation of estimated glomerular filtration rate > NRG Serum or plasma glucose measurement (mass/volume) 138 mg/dL 70-105 Serum or plasma calcium measurement (mass/volume) 9.0 mg/dL 8.5-10.1 Serum or plasma total bilirubin measurement (mass/volume) 0.4 mg/dL 0.1-1.0 Serum or plasma alkaline phosphatase measurement (enzymatic activity/volume) 75 U/L 40-136 Serum or plasma aspartate aminotransferase measurement (enzymatic activity/ volume) 24 U/L 5-34 Serum or plasma alanine aminotransferase measurement (enzymatic activity/volume ) 33 U/L 0-55 Serum or plasma protein measurement (mass/volume) 7.0 g/dL 6.4-8.2 Serum or plasma albumin measurement (mass/volume) 4.3 g/dL 3.2-4.5 Urine drug screening test - 03/30/17 19:51 Urine phencyclidine detection by screening method NEGATIVE NEGATIVE Urine benzodiazepines detection by screening method NEGATIVE NEGATIVE Urine cocaine detection NEGATIVE NEGATIVE Urine [...] NEGATIVE Urine propoxyphene detection NEGATIVE NEGATIVE Complete blood count (CBC) with automated white blood cell (WBC) differential - 03/30/17 20:10 Blood leukocytes automated count (number/volume) 7.7 10*3/uL 4.3-11.0 Blood erythrocytes automated count (number/volume) 4.23 10*6/uL 4.35-5.85 Venous blood hemoglobin measurement (mass/volume) 13.8 g/dL 11.5-16.0 Blood hematocrit (volume fraction) 41 % 35-52 Automated erythrocyte mean corpuscular volume 96 [foz_us] 80-99 Automated erythrocyte mean corpuscular hemoglobin (mass per erythrocyte) 33 pg 25-34 Automated erythrocyte mean corpuscular hemoglobin concentration measurement ( mass/volume) 34 g/dL 32-36 Automated erythrocyte distribution width ratio 13.2 % 10.0-14.5 Automated blood platelet count (count/volume) 259 10*3/uL 130-400 Automated blood platelet mean volume measurement 10.6 [foz_us] 7.4-10.4 Automated blood neutrophils/100 leukocytes 65 % 42-75 Automated blood lymphocytes/100 leukocytes 26 % 12-44 Blood monocytes/100 leukocytes 7 % 0-12 Automated blood eosinophils/100 leukocytes 2 % 0-10 Automated blood basophils/100 leukocytes 0 % 0-10 Blood neutrophils automated count (number/volume) 5.0 10*3 1.8-7.8 Blood lymphocytes automated count (number/volume) 2.0 10*3 1.0-4.0 Blood monocytes automated count (number/volume) 0.5 10*3 0.0-1.0 Automated eosinophil count 0.1 10*3/uL 0.0-0.3 Automated blood basophil count (count/volume) 0.0 10*3/uL 0.0-0.1 Serum or plasma choriogonadotropin ( test) detection - 03/30/17 20:10 Serum or plasma choriogonadotropin ( test) detection NEGATIVE NEGATIVE Comprehensive metabolic panel - 03/30/17 20:10 Serum or plasma sodium measurement (moles/volume) 142 mmol/L 135-145 Serum or plasma potassium measurement (moles/volume) 3.5 mmol/L 3.6-5.0 Serum or plasma chloride measurement (moles/volume) 107 mmol/L 98-107 Carbon dioxide 21 mmol/L 21-32 Serum or plasma anion gap determination (moles/volume) 14 mmol/L 5-14 Serum or plasma urea nitrogen measurement (mass/volume) 13 mg/dL 7-18 Serum or plasma creatinine measurement (mass/volume) 0.79 mg/dL 0.60-1.30 Serum or plasma urea nitrogen/creatinine mass ratio 16 NRG Serum or plasma creatinine measurement with calculation of estimated glomerular filtration rate > NRG Serum or plasma glucose measurement (mass/volume) 114 mg/dL 70-105 Serum or plasma calcium measurement (mass/volume) 9.0 mg/dL 8.5-10.1 Serum or plasma total bilirubin measurement (mass/volume) 0.5 mg/dL 0.1-1.0 Serum or plasma alkaline phosphatase measurement (enzymatic activity/volume) 61 U/L 40-136 Serum or plasma aspartate aminotransferase measurement (enzymatic activity/ volume) 18 U/L 5-34 Serum or plasma alanine aminotransferase measurement (enzymatic activity/volume ) 28 U/L 0-55 Serum or plasma protein measurement (mass/volume) 6.6 g/dL 6.4-8.2 Serum or plasma albumin measurement (mass/volume) 4.2 g/dL 3.2-4.5 Magnesium - 03/30/17 20:10 Magnesium 2.1 mg/dL 1.8-2.4 Serum or plasma thyrotropin measurement by detection limit <=0.05 miu/l (units/ volume) - 03/30/17 20:10 Serum or plasma thyrotropin measurement by detection limit <=0.05 miu/l (units/ volume) 4.30 u[iU]/mL 0.35-4.94 Serum or plasma acetaminophen measurement (mass/volume) - 03/30/17 20:10 Serum or plasma acetaminophen measurement (mass/volume) < ug/mL 10-30 Serum or plasma ethanol measurement (mass/volume) - 03/30/17 20:10 Serum or plasma ethanol measurement (mass/volume) < mg/dL <10 Complete urinalysis with reflex to culture - 01/24/18 19:05 Urine color determination YELLOW NRG Urine clarity determination VERY CLOUDY NRG Urine pH measurement by test strip 6 5-9 Specific gravity of urine by test strip 1.025 1.016- 1.022 Urine protein assay by test strip, semi-quantitative 1+ NEGATIVE Urine glucose detection by automated test strip 2+ NEGATIVE Erythrocytes detection in urine sediment by light microscopy 1+ NEGATIVE Urine ketones detection by automated test strip NEGATIVE NEGATIVE Urine nitrite detection by test strip NEGATIVE NEGATIVE Urine total bilirubin detection by test strip NEGATIVE NEGATIVE Urine urobilinogen measurement by automated test strip (mass/volume) 1 mg/dL NORMAL Urine leukocyte esterase detection by dipstick 1+ NEGATIVE Automated urine sediment erythrocyte count by microscopy (number/high power field) [HPF] NRG Automated urine sediment leukocyte count by microscopy (number/high power field ) [HPF] NRG Bacteria detection in urine sediment by light microscopy LARGE NRG Squamous epithelial cells detection in urine sediment by light microscopy 10-25 NRG Crystals detection in urine sediment by light microscopy NONE NRG Casts detection in urine sediment by light microscopy NONE NRG Mucus detection in urine sediment by light microscopy LARGE NRG Complete urinalysis with reflex to culture YES [facility] Bacterial urine culture - 01/24/18 19:05 URINE CULTURE RESULTS MORE THAN 3 ISOLATES [facility] Complete blood count (CBC) with automated white blood cell (WBC) differential - 01/24/18 20:05 Blood leukocytes automated count (number/volume) 3.8 10*3/uL 4.3-11.0 Blood erythrocytes automated count (number/volume) 4.37 10*6/uL 4.35-5.85 Venous blood hemoglobin measurement (mass/volume) 14.9 g/dL 11.5-16.0 Blood hematocrit (volume fraction) 42 % 35-52 Automated erythrocyte mean corpuscular volume 96 [foz_us] 80-99 Automated erythrocyte mean corpuscular hemoglobin (mass per erythrocyte) 34 pg 25-34 Automated erythrocyte mean corpuscular hemoglobin concentration measurement ( mass/volume) 36 g/dL 32-36 Automated erythrocyte distribution width ratio 12.4 % 10.0-14.5 Automated blood platelet count (count/volume) 235 10*3/uL 130-400 Automated blood platelet mean volume measurement 9.9 [foz_us] 7.4-10.4 Automated blood neutrophils/100 leukocytes 55 % 42-75 Automated blood lymphocytes/100 leukocytes 26 % 12-44 Blood monocytes/100 leukocytes 15 % 0-12 Automated blood eosinophils/100 leukocytes 3 % 0-10 Automated blood basophils/100 leukocytes 1 % 0-10 Blood neutrophils automated count (number/volume) 2.1 10*3 1.8-7.8 Blood lymphocytes automated count (number/volume) 1.0 10*3 1.0-4.0 Blood monocytes automated count (number/volume) 0.6 10*3 0.0-1.0 Automated eosinophil count 0.1 10*3/uL 0.0-0.3 Automated blood basophil count (count/volume) 0.0 10*3/uL 0.0-0.1 Influenza virus A and B antigen detection - 01/24/18 20:05 FLU RESULT NEGATIVE FOR INFLUENZA A AND B ANTIGENS BY IA [facility] Comprehensive metabolic panel - 01/24/18 20:05 Serum or plasma sodium measurement (moles/volume) 140 mmol/L 135-145 Serum or plasma potassium measurement (moles/volume) 4.0 mmol/L 3.6-5.0 Serum or plasma chloride measurement (moles/volume) 105 mmol/L 98-107 Carbon dioxide 26 mmol/L 21-32 Serum or plasma anion gap determination (moles/volume) 9 mmol/L 5-14 Serum or plasma urea nitrogen measurement (mass/volume) 14 mg/dL 7-18 Serum or plasma creatinine measurement (mass/volume) 0.74 mg/dL 0.60-1.30 Serum or plasma urea nitrogen/creatinine mass ratio 19 NRG Serum or plasma creatinine measurement with calculation of estimated glomerular filtration rate > NRG Serum or plasma glucose measurement (mass/volume) 174 mg/dL 70-105 Serum or plasma calcium measurement (mass/volume) 9.0 mg/dL 8.5-10.1 Serum or plasma total bilirubin measurement (mass/volume) 0.4 mg/dL 0.1-1.0 Serum or plasma alkaline phosphatase measurement (enzymatic activity/volume) 88 U/L 40-136 Serum or plasma aspartate aminotransferase measurement (enzymatic activity/ volume) 22 U/L 5-34 Serum or plasma alanine aminotransferase measurement (enzymatic activity/volume ) 28 U/L 0-55 Serum or plasma protein measurement (mass/volume) 6.5 g/dL 6.4-8.2 Serum or plasma albumin measurement (mass/volume) 4.0 g/dL 3.2-4.5 Lipase - 01/24/18 20:05 Lipase 18 U/L 8-78 Serum or plasma C reactive protein measurement (mass/volume) - 01/24/18 20:05 Serum or plasma C reactive protein measurement (mass/volume) 3.29 mg /dL 0.00-0.50 Influenza - 01/26/18 21:10 Influenza NEGATIVE FOR A and B 0.00-0.00 Encounters ACCT No. Visit Date/Time Discharge Status Pt. Type Provider Facility Loc./Unit Complaint [id number] 06/06/2014 08:47:00 06/06/2014 23:59:59 [facility] Outpatient GERARDO KISER APRN [id number] 05/16/2014 10:11:00 05/16/2014 23:59:59 [facility]LS Outpatient GERARDO KISER APRN [id number] 05/09/2014 09:17:00 05/09/2014 23:59:59 CLS Outpatient MARGI GERARDO LEDBETTER Eloise [id number] 02/07/2017 11:07:00 Document Registration [id number] 01/24/2018 18:04:00 01/24/2018 21:28:00 DIS Outpatient KIERAN TOLBERT JACKY [facility] ER DIAHRREA,VOMITING [id number] 04/20/2017 10:15:00 04/20/2017 23:59:59 CLS Preadmit GLORIA WALDEN APRN [facility] PULM RESTRICTIVE LUNG DISEASE,SEIZURE [id number] 03/12/2017 13:00:00 04/19/2017 00:01:00 DIS Outpatient GLORIA WALDEN APRN [facility] PULM RESTRICTIVE LUNG DISEASE,SEIZURE [id number] 03/30/2017 19:26:00 03/30/2017 21:15:00 DIS Emergency JOSSELIN QUINONEZ DO [facility] ER SOA [id number] 03/28/2017 13:33:00 03/28/2017 17:13:00 DIS Emergency TYLER CHUNG MD [facility] ER SOA [id number] 03/24/2017 14:15:00 03/24/2017 23:59:59 CLS Preadmit KAMILLE CHAVEZ DO [facility] RAD J43.9 COPD [id number] 03/24/2017 13:23:00 03/24/2017 15:50:00 DIS Emergency GALA TALLEY APRN [facility] ER CHEST PAIN [id number] 03/21/2017 09:07:00 03/21/2017 12:05:00 DIS Emergency GALA TALLEY APRN [facility] ER BLOODY AND FREQUENT STOOL [id number] 01/26/2017 12:34:00 01/27/2017 13:40:00 DIS Inpatient STIVEN RAYMOND MD [facility] 4TH DIVERTICULITIS [id number] 01/23/2017 12:36:00 01/23/2017 15:34:00 DIS Emergency TALLEYGALA APRN [facility] ER FEVER/CHILLS CONSTIPATION/ DIARRHEA [id number] 01/12/2017 09:12:00 01/12/2017 23:59:59 CLS Outpatient PRESTON HOLLEY MD [facility] RT SEIZURE [id number] 12/20/2016 20:10:00 12/21/2016 06:10:00 DIS Outpatient KAMILLE CHAVEZ DO [facility] SLEEP SNORING [id number] 09/23/2016 08:51:00 09/23/2016 23:59:59 CLS Outpatient KAMILLE CHAVEZ DO [facility] RAD COPD,TOBACCO USER [id number] 08/13/2016 14:29:00 08/13/2016 23:59:59 CLS Outpatient KAMILLE CHAVEZ DO [facility] RT COPD,OBESITY [id number] 06/27/2016 15:19:00 06/27/2016 23:59:59 CLS Outpatient PRESTON HOLLEY MD [facility] RAD SEIZURE [id number] 05/15/2016 06:57:00 05/15/2016 12:50:00 DIS Outpatient RENETTA KRUSE FACC, VALENTIN HANDLEY CCDS [facility] CATH ANGINA,SOB LEG PAIN [id number] 05/12/2016 11:18:00 05/12/2016 23:59:59 CLS Outpatient PRESTON HOLLEY MD [facility] LAB SEIZURES [id number] 05/12/2016 09:25:00 05/12/2016 23:59:59 CLS Outpatient PRESTON HOLLEY MD [facility] RT SEIZURE NOS [id number] 02/27/2016 14:00:00 04/03/2016 09:43:00 DIS Outpatient CHAVA SHAFER MD [facility] REHAB CERVICAL STRAIN [id number] 02/10/2016 11:48:00 02/10/2016 14:00:00 DIS Emergency JACKY CORONEL [facility] ER R FOOT INJ [id number] 01/15/2018 09:45:00 01/15/2018 23:59:59 CLS Outpatient [facility] [id number] 01/26/2018 21:13:23 Document Registration [id number] 01/26/2018 21:12:40 Document Registration [id number] 03/11/2017 08:45:00 Document Registration
[2018-02-02] MEDS ORDERED: LACTATED RINGERS 1,000 ML IV ONE (12:52)
[2018-02-02] MEDS ORDERED: LACTATED RINGERS 1,000 ML IV STA (12:52)
[2018-02-02] MEDS ORDERED: HURRICAINE EXT TUBE (BENZOCAINE) XX PRN (13:00)
[2018-02-02 13:05] VITALS: BP 107/70
--- NOTE | 2018-02-02 13:28 | Progress Note-Pre Operative ---
Pre-Operative Progress Note H&P Reviewed The H&P was reviewed, patient examined and no changes noted. Date Seen by Provider: Feb 02, 2018 Time Seen by Provider: 13:28 Date H&P Reviewed: Feb 02, 2018 Time H&P Reviewed: 13:28 Pre-Operative Diagnosis: GERD, Refuses colonoscopy MALLY BRITO DO Feb 02, 2018 13:28
[2018-02-02] MEDS ORDERED: NS IV 500 ML 500 ML IV ONE (13:30)
[2018-02-02] MEDS ORDERED: proPOfol 200 MG/20 ML (DIPRIVAN) VIAL IV ONE (14:22)
[2018-02-02] MEDS ORDERED: KETAMINE HCL 100 MG/ML 5 ML VIAL ONE (14:23)
[2018-02-02] MEDS ORDERED: MIDAZOLAM 2 MG/2 ML (VERSED) VIAL ONE (14:24)
[2018-02-02] MEDS ORDERED: HURRICAINE EXT TUBE (BENZOCAINE) ONE (14:28)
--- NOTE | 2018-02-02 14:47 | Progress Note-Post Operative ---
Post-Operative Progess Note Surgeon (s)/Flight Test Shop Mechanic (s) Surgeon MALLY BRITO DO Flight Test Shop Mechanic: na Pre-Operative Diagnosis GERD, Refuses colonoscopy Post-Operative Diagnosis slight gastritis, hiatal hernia, reflux esophagitis Procedure & Operative Findings Date of Procedure 02/02/18 Procedure Performed/Findings egd c biopsies Anesthesia Type per chemical laboratory scientist Estimated Blood Loss Estimated blood loss (mL): none Specimens/Packing Specimens Removed antrum, GE junction MALLY BRITO DO Feb 02, 2018 14:47
[2018-02-02] MEDS ORDERED: PANT40TA2 PO (14:49)
[2018-02-02] MEDS ORDERED: SUCR1TAB36 PO (14:49)
--- NOTE | 2018-02-02 14:50 | Discharge Inst-Simple/Standard ---
Discharge Inst-Standard Discharge Medications New, Converted or Re-Newed RX: Transmitted to Pharmacy Patient Instructions/Follow Up Plan of Care/Instructions/FU: 3 weeks Armaan Activity as Tolerated: Yes Discharge Diet: Regular Diet MALLY BRITO DO Feb 02, 2018 14:50
--- NOTE | 2018-02-02 14:55 | Anesthesia-General Post-Op ---
MAC Patient Condition Mental Status/LOC: Same as Preop Cardiovascular: Satisfactory Nausea/Vomiting: Absent Respiratory: Satisfactory Pain: Controlled Complications: Absent Post Op Complications Complications None Follow Up Care/Instructions Patient Instructions None needed. Anesthesiology Discharge Order Discharge Order Patient is doing well, no complaints, stable vital signs, no apparent adverse anesthesia problems. No complications reported per nursing. SHELBY MANTILLA CRNA Feb 02, 2018 14:55
[2018-02-02 15:05] VITALS: BP 133/76
[2018-02-02 15:30] VITALS: BP 139/65
[2018-02-02 15:40] VITALS: BP 139/65
--- NOTE | 2018-02-02 22:15 | OPERATIVE REPORT ---
DATE OF SERVICE: 02/02/2018 PREOPERATIVE DIAGNOSIS: Gastroesophageal reflux disease and the patient refusing colonoscopy. POSTOPERATIVE DIAGNOSIS: Slight gastritis, hiatal hernia, reflux esophagitis. PROCEDURE: EGD with biopsy. SURGEON: Mally Crook DO. ANESTHESIA: Per MOVABLE BULKHEAD INSTALLER. ESTIMATED BLOOD LOSS: None. COMPLICATIONS: None. INDICATIONS: The patient is a 47-year-old female who has been having worsening reflux symptoms. She understands risks and benefits of procedure and wished to proceed with procedure. Consent was signed in the chart. PROCEDURE: The patient was taken to the endoscopy suite, placed in left lateral recumbent position. Timeout was performed. Scope was inserted in the mouth, down the esophagus, stomach into the duodenum without difficulty. There were no polyps, masses or ulcerations within the duodenum. Scope was slowly retracted back into the stomach, which was insufflated. Slight appearance of some gastritis present. Biopsy of the antrum was obtained. Scope was retroflexed noting a small hiatal hernia. No other pathology noted. Scope was returned to its normal position, slowly withdrawn to the distal esophagus which had the appearance of possibly some slight [place] ulcers along with some erythematous changes. Biopsy was obtained. Scope was then slowly retracted back to completely remove, noting no other pathology. The patient tolerated procedure well without any complications. She was taken to recovery room in stable condition. RECOMMENDATIONS: The patient will be started on Protonix 40 mg daily and Carafate 1 gram four times a day. Her follow up in approximately three weeks. If she has any problems prior to that, she should be seen at that time. follow up on pathology and see how she is doing at that time. Job ID: [id number] DocumentID: [id number] Dictated Date: 02/02/2018 14:54:55 [employer] Date: 02/02/2018 22:15:23 Dictated By: MALLY CROOK DO
== END 2018-02-02 15:40 | disposition home or self-care (01) ==
LOC: ENDO 12:27
PROVIDERS: ATTEND Surgery
DX: K21.0 Gastro-esophageal reflux disease with esophagitis (principal); K44.9 Diaphragmatic hernia without obstruction or gangrene; K29.70 Gastritis, unspecified, without bleeding; I10 Essential (primary) hypertension; E78.00 Pure hypercholesterolemia, unspecified; F17.210 Nicotine dependence, cigarettes, uncomplicated; J45.909 Unspecified asthma, uncomplicated; J44.9 Chronic obstructive pulmonary disease, unspecified; F41.9 Anxiety disorder, unspecified; F31.9 Bipolar disorder, unspecified; E11.9 Type 2 diabetes mellitus 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s; E03.9 Hypothyroidism, unspecified; Z88.0 Allergy status to penicillin; Z88.5 Allergy status to narcotic agent; Z79.4 Long term (current) use of insulin; Z79.82 Long term (current) use of aspirin; Z79.899 Other long term (current) drug therapy; Z80.0 Family history of malignant neoplasm of digestive organs

== ENCOUNTER → 2018-02-25 | Outpatient (CLI) | payer MEDICAID ==
[~2018-02-25] MED LIST changes: +DOXY100C2; +NICO-533 TD; +ONDA4TAB8 SL; +PANT40TA2 PO; +PRD20T PO; +SUCR1TAB36 PO
--- NOTE | 2018-02-25 10:55 | Diagnostic Imaging Report ---
PROCEDURE: US Gallbladder. TECHNIQUE: Multiple real-time grayscale images were obtained over the right upper quadrant in various projections. INDICATION: Diarrhea. Liver parenchyma appeared normal. There is no intra-or extra-hepatic bile duct dilatation. No stones within the gallbladder lumen. The unobstructed right kidney is normal in size, cortical thickness and echotexture. There was no ascites. The extrahepatic duct in the pancreas largely obscured by shadowing bowel gas. IMPRESSION: No pathological finding where visualized. Dictated by: Dictated on workstation # [id number]
== END ==
LOC: RAD 08:02
PROVIDERS: ATTEND Surgery
DX: R19.7 Diarrhea, unspecified (principal)
CPT/HCPCS: 76705

== ENCOUNTER → 2018-03-08 | Outpatient (CLI) | payer MEDICAID ==
[~2018-03-08] MED LIST changes: +RT-ALBUTEROL SULF 2.5 MG/3 ML PRE-MIX VIAL INH ONE; +RT-ALBUTEROL SULF 2.5 MG/3 ML PRE-MIX VIAL ONE
--- NOTE | 2018-03-08 15:54 | Diagnostic Imaging Report ---
PROCEDURE: CT chest without contrast. TECHNIQUE: Multiple contiguous axial images were obtained through the chest without the use of intravenous contrast. INDICATION: Asthma and bronchitis. FINDINGS: There are no prior CT chest examinations available for comparison. The plain film examination of the chest performed on 01/24/2018 failed to show any sign of an acute abnormality. In the interval since the prior chest exam, a thin strand of atelectasis/fibrosis has developed in the right middle lobe. The right lung is otherwise generally clear and well aerated. There is a 1.1 x 1.2 cm poorly defined density in the lingula. In reviewing the previous CT abdomen/pelvis exam of 03/21/2017, there was a smaller 0.8 x 1.4 cm density in this area. This finding may be secondary to scar formation. The possibly that this clinical abnormality is related to a neoplastic process should also be considered. It is my understanding that the patient has a history of tobacco use. Therefore, I would recommend that PET/CT be performed for further study. If the PET/CT exam is not performed, then a short-term (three-month) followup CT chest exam should be obtained. The lungs are otherwise generally clear. The heart size is within normal limits. There are no coronary artery calcifications noted. The aorta is not abnormally dilated. There is no obvious mediastinal or hilar adenopathy. The thyroid gland is generally unremarkable. There is no breast mass identified. According to our records, the patient has not had a mammogram. If the patient has had a recent (within the last year) mammogram elsewhere, then no further imaging would be necessary. However, if the patient has not had a recent mammogram, then mammography would be recommended for further evaluation. The sections through the upper abdomen fail to show any sign of an acute abnormality. The bone windows are unremarkable for a fracture or for a destructive lesion. IMPRESSION: 1. There is no evidence for an acute cardiopulmonary abnormality. 2. The small area of increased density in the lingula seen on the prior exam does measure larger on this study. This finding may well be related to chronic atelectasis/scar formation. The possibility that this abnormal density is neoplastic in nature cannot be entirely excluded. Either PET/CT or a short-term (three-month) followup CT chest exam should be obtained. 3. There is no obvious breast mass. Recommendations as above. Dictated by: Dictated on workstation # [id number]
== END ==
LOC: RAD 12:09
PROVIDERS: ATTEND Nurse Practitioner Family
DX: J45.909 Unspecified asthma, uncomplicated (principal); Z72.0 Tobacco use
CPT/HCPCS: 71250; 94060; 94726

== ENCOUNTER → 2018-03-23 | Outpatient (CLI) | payer MEDICAID ==
[~2018-03-23] MED LIST changes: -RT-ALBUTEROL SULF 2.5 MG/3 ML PRE-MIX VIAL INH ONE; -RT-ALBUTEROL SULF 2.5 MG/3 ML PRE-MIX VIAL ONE
--- NOTE | 2018-03-23 13:56 | Diagnostic Imaging Report ---
INDICATION: Lingular density noted on recent CT. The study is performed for further evaluation. TECHNIQUE: Blood glucose level at the time of injection is 144 mg/dL. The patient was administered 13.5 mCi F-18 FDG intravenously, administered in the right forearm and PET imaging was performed from the top of the skull through the mid thighs. Noncontrast CT was also performed for attenuation correction and anatomic correlation. COMPARISON: Comparison is made with recent CT of the chest from 03/08/2018. FINDINGS: There is normal symmetric activity within the brain. Soft tissues of the neck are unremarkable. No abnormal hypermetabolism within the chest is identified. Specifically, the area of slight linear nodularity in the lingula is not hypermetabolic. The accompanying noncontrast CT chest does show improvement in this area with only minimal residual linear density, likely improving atelectasis or infiltrate. No mediastinal or hilar hypermetabolism is identified. The abdomen demonstrates physiologic activity within the liver and spleen as well as within the genitourinary and gastrointestinal tracts. No abnormal hypermetabolism is detected. IMPRESSION: Unremarkable PET/CT study. No abnormal hypermetabolism is detected. Specifically, no abnormality in the lingula is detected. Dictated by: Dictated on workstation # [id number]
== END ==
LOC: RAD 08:23
PROVIDERS: ATTEND Nurse Practitioner Family
DX: R91.8 Other nonspecific abnormal finding of lung field (principal); Z72.0 Tobacco use

== ENCOUNTER 2018-03-31 10:47 | Emergency (ER) | payer MEDICAID ==
[~2018-03-31] VITALS: Ht 154.9 cm; Wt 74.8 kg
[~2018-03-31 10:47] MED LIST changes: -DOXY100C2; -NICO-533 TD; -ONDA4TAB8 SL; -PRD20T PO
--- OUTSIDE RECORDS SUMMARY | 2018-03-31 11:07 | XMS REPORT | Continuity of Care Document ---
Author Author [facility] Address Unknown Phone Unavailable Allergies Active Description Code Type Severity Reaction Onset Reported/Identified Relationship to Patient Clinical Status Yes METFORMIN MODERATE ANAPHYLACTIC SHOCK Yes Penicillins [id number] Drug Allergy Unknown N/A 01/26/2017 Yes Iodinated Contrast- Oral and IV Dye [id number] Drug Allergy Unknown N/A Medications Medication Packaging Start Date Stop Date [...] APRN 782.1 RASH 06/06/2014 GERARDO KISER APRN T 477.9 RHINITIS 06/06/2014 GERARDO KISER APRN T 784.0 HEADACHE 01/23/2016 CHAVA SHAFER MD Ot M54.2 01/29/2016 CHAVA SHAFER MD Ot M54.2 02/10/2016 CHAVA SHAFER MD Ot M54.2 02/10/2016 CHAVA SHAFER MD Ot M54.2 02/10/2016 JACKY CORONEL Ot E11.9 TYPE 2 DIABETES MELLITUS WITHOUT COMPLIC 02/10/2016 JACKY CORONEL Ot F17.210 NICOTINE DEPENDENCE, CIGARETTES, UNCOMPL 02/10/2016 JACKY CORONEL Ot I10 ESSENTIAL (PRIMARY) HYPERTENSION 02/10/2016 JACKY CORONEL Ot S92.354A NONDISP FX OF FIFTH METATARSAL BONE, RIG 02/10/2016 JACKY CORONEL Ot X58.XXXA EXPOSURE TO OTHER SPECIFIED FACTORS, INI 02/10/2016 JACKY CORONEL Ot Y99.8 OTHER EXTERNAL CAUSE STATUS 04/03/2016 CHAVA SHAFER MD Ot M54.2 CERVICALGIA 05/14/2016 PRESTON HOLLEY MD Ot R56.9 UNSPECIFIED CONVULSIONS 05/14/2016 PRESTON HOLLEY MD Ot Z79.899 OTHER CHILDREN'S SERVICE WORKER (CURRENT) DRUG THERAPY 05/14/2016 PRESTON HOLLEY MD Ot R56.9 UNSPECIFIED CONVULSIONS 05/15/2016 PRESTON HOLLEY MD Ot R56.9 UNSPECIFIED CONVULSIONS 05/15/2016 PRESTON HOLLEY MD Ot R56.9 UNSPECIFIED CONVULSIONS 05/15/2016 PRESTON HOLLEY MD Ot Z79.899 OTHER CHILDREN'S SERVICE WORKER (CURRENT) DRUG THERAPY 05/15/2016 RENETTA KRUSE FACC, VALENTIN CRABTREEP CCDS Ot E11.9 TYPE 2 DIABETES MELLITUS [...] (BMI) 34.0-34.9, ADULT 05/15/2016 RENETTA KRUSE FACC, ALI FACP CCDS Ot Z72.0 TOBACCO USE 05/15/2016 RENETTA KRUSE FACC, ALI FACP CCDS Ot Z79.899 OTHER SKILLED NURSING (CURRENT) DRUG THERAPY 05/18/2016 PRESTON HOLLEY MD K Ot R56.9 UNSPECIFIED CONVULSIONS 05/28/2016 PRESTON HOLLEY MD K Ot R56.9 UNSPECIFIED CONVULSIONS 05/28/2016 PRESTON HOLLEY MD K Ot R56.9 UNSPECIFIED CONVULSIONS 05/28/2016 PRESTON HOLLEY MD K Ot Z79.899 OTHER SKILLED NURSING (CURRENT) DRUG THERAPY 06/10/2016 RENETTA KRUSE FACC, [...] PAIN IN LEG, UNSPECIFIED 06/10/2016 RENETTA KRUSE [facility], ALI FACP CCDS Ot R07.89 OTHER CHEST PAIN 06/10/2016 RENETTA KRUSE [facility], ALI FACP CCDS Ot R60.9 EDEMA, UNSPECIFIED 06/10/2016 RENETTA KRUSE [facility], ALI FACP CCDS Ot Z68.34 BODY MASS INDEX (BMI) 34.0-34.9, ADULT 06/10/2016 RENETTA KRUSE [facility], ALI FACP CCDS Ot Z72.0 TOBACCO USE 06/10/2016 RENETTA KRUSE [facility], ALI FACP CCDS Ot Z79.899 OTHER SKILLED NURSING (CURRENT) DRUG THERAPY 06/30/2016 PRESTON HOLLEY MD K Ot R56.9 UNSPECIFIED CONVULSIONS 06/30/2016 PRESTON HOLLEY MD K Ot R56.9 UNSPECIFIED CONVULSIONS 07/16/2016 PRESTON HOLLEY MD Ot R56.9 UNSPECIFIED CONVULSIONS 08/15/2016 PRESTON HOLLEY MD K Ot R56.9 UNSPECIFIED CONVULSIONS 08/15/2016 PRESTON HOLLEY MD K Ot R56.9 UNSPECIFIED CONVULSIONS 08/15/2016 PRESTON HOLLEY MD K Ot Z79.899 OTHER CHILDREN'S SERVICE WORKER (CURRENT) DRUG THERAPY 08/15/2016 PRESTON HOLLEY MD [...] PRESTON HOLLEY MD K Ot Z79.899 OTHER CHILDREN'S SERVICE WORKER (CURRENT) DRUG THERAPY 09/23/2016 PRESTON HOLLEY MD Ot R56.9 UNSPECIFIED CONVULSIONS 09/23/2016 SCOTTKAMILLE CROW DO Ot E66.9 OBESITY, UNSPECIFIED 09/23/2016 KAMILLE CHAVEZ DO Ot J44.9 CHRONIC OBSTRUCTIVE PULMONARY DISEASE, U 09/23/2016 SCOTT FOREMANKAMILLE Ot Z72.0 TOBACCO USE 09/23/2016 SCOTTKAMILLE CROW DO Ot E66.9 OBESITY, UNSPECIFIED 09/23/2016 KAMILLE CHAVEZ DO Ot J43.9 EMPHYSEMA, UNSPECIFIED 09/23/2016 SCOTT FOREMAN KAMILLE M Ot Z72.0 TOBACCO USE 11/19/2016 SCOTTKAMILLE CROW DO Ot E66.9 OBESITY, UNSPECIFIED 11/19/2016 KAMILLE CHAVEZ DO Ot J43.9 EMPHYSEMA, UNSPECIFIED 11/19/2016 SCOTTTRISTIN FOREMAN KAMILLE M Ot Z72.0 TOBACCO USE 12/21/2016 KAMILLE CHAVEZ DO Ot R06.83 SNORING 12/22/2016 KAMILLE CHAVEZ DO Ot R06.83 SNORING 12/26/2016 KAMILLE CHAVEZ DO Ot R06.83 SNORING 01/14/2017 PRESTON HOLLEY MD Ot R56.9 UNSPECIFIED CONVULSIONS 01/20/2017 GLORIA WALDEN CYLINDER HEAD ASSEMBLER Ot J98.4 OTHER DISORDERS OF LUNG 01/20/2017 GLORIA WALDEN CYLINDER HEAD ASSEMBLER Ot R56.9 UNSPECIFIED CONVULSIONS 01/23/2017 PRESTON HOLLEY MD Ot R56.9 UNSPECIFIED CONVULSIONS 01/23/2017 GALA TALLEY CYLINDER HEAD ASSEMBLER Ot E11.9 TYPE 2 DIABETES MELLITUS WITHOUT COMPLIC 01/23/2017 GALA TALLEY CYLINDER HEAD ASSEMBLER Ot I10 ESSENTIAL (PRIMARY) HYPERTENSION 01/23/2017 GALA TALLEY APRN Ot J44.9 CHRONIC OBSTRUCTIVE PULMONARY DISEASE, U 01/23/2017 GALA TALLEY APRN Ot K57.32 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 01/23/2017 GALA TALLEY APRN Ot R19.7 DIARRHEA, UNSPECIFIED 01/23/2017 GALA TALLEY APRN Ot Z79.84 CHILDREN'S SERVICE WORKER (CURRENT) USE OF ORAL HYPOGLYC 01/23/2017 GALA TALLEY CYLINDER HEAD ASSEMBLER Ot Z79.899 OTHER SKILLED NURSING (CURRENT) DRUG THERAPY 01/25/2017 GALA TALLEY CYLINDER HEAD ASSEMBLER Ot E11.9 TYPE 2 DIABETES MELLITUS WITHOUT COMPLIC 01/25/2017 GALA TALLEY CYLINDER HEAD ASSEMBLER Ot I10 ESSENTIAL (PRIMARY) HYPERTENSION 01/25/2017 GALA TALLEY CYLINDER HEAD ASSEMBLER Ot J44.9 CHRONIC OBSTRUCTIVE PULMONARY DISEASE, U 01/25/2017 GALA TALLEY CYLINDER HEAD ASSEMBLER Ot K57.32 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 01/25/2017 GALA TALLEY CYLINDER HEAD ASSEMBLER Ot R19.7 DIARRHEA, UNSPECIFIED 01/25/2017 GALA TALLEY CYLINDER HEAD ASSEMBLER Ot Z79.84 SKILLED NURSING (CURRENT) USE OF ORAL HYPOGLYC 01/25/2017 GALA TALLEY CYLINDER HEAD ASSEMBLER Ot Z79.899 OTHER CHILDREN'S SERVICE WORKER (CURRENT) DRUG THERAPY 01/27/2017 STIVEN RAYMOND MD [...] ABS 01/27/2017 STIVEN RAYMOND MD Ot Z79.84 SKILLED NURSING (CURRENT) USE OF ORAL HYPOGLYC 01/27/2017 STIVEN [...] ABS 01/27/2017 STIVEN RAYMOND MD Ot Z79.84 SKILLED NURSING (CURRENT) USE OF ORAL HYPOGLYC 01/29/2017 GALA TALLEY APRN Ot E11.9 TYPE 2 DIABETES MELLITUS WITHOUT COMPLIC 01/29/2017 GALA TALLEY APRN Ot I10 ESSENTIAL (PRIMARY) HYPERTENSION 01/29/2017 GALA TALLEY CYLINDER HEAD ASSEMBLER Ot J44.9 CHRONIC OBSTRUCTIVE PULMONARY DISEASE, U 01/29/2017 GALA TALLEY APRN Ot K57.32 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 01/29/2017 GALA TALLEY APRN Ot R19.7 DIARRHEA, UNSPECIFIED 01/29/2017 GALA TALLEY APRN Ot Z79.84 SKILLED NURSING (CURRENT) USE OF ORAL HYPOGLYC 01/29/2017 GALA TALLEY APRN Ot Z79.899 OTHER CHILDREN'S SERVICE WORKER (CURRENT) DRUG THERAPY 02/12/2017 LGORIA WALDEN APRN Ot J98.4 OTHER DISORDERS OF LUNG 02/12/2017 GLORIA WALDEN APRN Ot R56.9 UNSPECIFIED CONVULSIONS 03/21/2017 GALA TALLEY APRN Ot E11.9 TYPE 2 DIABETES MELLITUS WITHOUT COMPLIC 03/21/2017 GALA TALLEY APRN Ot F17.210 NICOTINE DEPENDENCE, CIGARETTES, UNCOMPL 03/21/2017 GALA TALLEY APRN Ot I10 ESSENTIAL (PRIMARY) HYPERTENSION 03/21/2017 GALA TALLEY APRN Ot J44.9 CHRONIC OBSTRUCTIVE PULMONARY DISEASE, U 03/21/2017 GALA TALLEY APRN Ot K52.9 NONINFECTIVE GASTROENTERITIS AND COLITIS 03/21/2017 GALA TALLEY APRN Ot K57.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 03/21/2017 GALA TALLEY APRN Ot R19.7 DIARRHEA, UNSPECIFIED 03/21/2017 GALA TALLEY APRN Ot Z79.4 SKILLED NURSING (CURRENT) USE OF INSULIN 03/21/2017 GALA TALLEY APRN Ot Z79.82 SKILLED NURSING (CURRENT) USE OF ASPIRIN 03/21/2017 GALA TALLEY CYLINDER HEAD ASSEMBLER Ot Z79.899 OTHER SKILLED NURSING (CURRENT) DRUG THERAPY 03/23/2017 GALA TALLEY APRN Ot E11.9 TYPE 2 DIABETES MELLITUS WITHOUT COMPLIC 03/23/2017 GALA TALLEY APRN Ot F17.210 NICOTINE DEPENDENCE, CIGARETTES, UNCOMPL 03/23/2017 GALA TALLEY CYLINDER HEAD ASSEMBLER Ot I10 ESSENTIAL (PRIMARY) HYPERTENSION 03/23/2017 GALA TALLEY APRN Ot J44.9 CHRONIC OBSTRUCTIVE PULMONARY DISEASE, U 03/23/2017 GALA TALLEY APRN Ot K52.9 NONINFECTIVE GASTROENTERITIS AND COLITIS 03/23/2017 GALA TALLEY APRN Ot K57.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 03/23/2017 GALA TALLEY APRN Ot R19.7 DIARRHEA, UNSPECIFIED 03/23/2017 GALA TALLEY APRN Ot Z79.4 SKILLED NURSING (CURRENT) USE OF INSULIN 03/23/2017 GALA TALLEY APRN Ot Z79.82 SKILLED NURSING (CURRENT) USE OF ASPIRIN 03/23/2017 GALA TALLEY APRN Ot Z79.899 OTHER CHILDREN'S SERVICE WORKER (CURRENT) DRUG THERAPY 03/24/2017 GALA TALLEY APRN Ot E11.9 TYPE 2 DIABETES MELLITUS WITHOUT COMPLIC 03/24/2017 GALA TALLEY APRN Ot I10 ESSENTIAL (PRIMARY) HYPERTENSION 03/24/2017 GALA TALLEY APRN Ot J44.9 CHRONIC OBSTRUCTIVE PULMONARY DISEASE, U 03/24/2017 GALA TALLEY APRN Ot R07.9 CHEST PAIN, UNSPECIFIED 03/24/2017 GALA TALLEY APRN Ot Z79.4 SKILLED NURSING (CURRENT) USE OF INSULIN 03/24/2017 GALA TALLEY APRN Ot 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 03/24/2017 GALA TALLEY APRN Ot Z79.899 OTHER SKILLED NURSING (CURRENT) DRUG THERAPY 03/26/2017 GALA TALLEY APRN Ot E11.9 TYPE 2 DIABETES MELLITUS WITHOUT COMPLIC 03/26/2017 GALA TALLEY CYLINDER HEAD ASSEMBLER Ot I10 ESSENTIAL (PRIMARY) HYPERTENSION 03/26/2017 GALA TALLEY APRN Ot J44.9 CHRONIC OBSTRUCTIVE PULMONARY DISEASE, U 03/26/2017 GALA TALLEY APRN Ot R07.9 CHEST PAIN, UNSPECIFIED 03/26/2017 GALA TALLEY CYLINDER HEAD ASSEMBLER Ot 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 03/26/2017 GALA TALLEY CYLINDER HEAD ASSEMBLER Ot Z79.82 SKILLED NURSING (CURRENT) USE OF ASPIRIN 03/26/2017 GALA TALLEY CYLINDER HEAD ASSEMBLER Ot Z79.899 OTHER CHILDREN'S SERVICE WORKER (CURRENT) DRUG THERAPY 03/27/2017 GALA TALLEY APRN Ot E11.9 TYPE 2 DIABETES MELLITUS WITHOUT COMPLIC 03/27/2017 GALA TALLEY CYLINDER HEAD ASSEMBLER Ot I10 ESSENTIAL (PRIMARY) HYPERTENSION 03/27/2017 GALA TALLEY CYLINDER HEAD ASSEMBLER Ot J44.9 CHRONIC OBSTRUCTIVE PULMONARY DISEASE, U 03/27/2017 GALA TALLEY APRN Ot R07.9 CHEST PAIN, UNSPECIFIED 03/27/2017 GALA TALLEY APRN Ot Z79.4 SKILLED NURSING (CURRENT) USE OF INSULIN 03/27/2017 GALA TALLEY APRN Ot Z79.82 SKILLED NURSING (CURRENT) USE OF ASPIRIN 03/27/2017 GALA TALLEY APRN Ot Z79.899 OTHER CHILDREN'S SERVICE WORKER (CURRENT) DRUG THERAPY 03/28/2017 TYLER CHUNG MD [...] HYPERHIDROSIS 03/28/2017 TYLER CHUNG MD Ot Z79.82 SKILLED NURSING (CURRENT) USE OF ASPIRIN 03/28/2017 TYLER CHUNG MD Ot Z79.899 OTHER SKILLED NURSING (CURRENT) DRUG THERAPY 03/30/2017 DEVI DO JOSSELIN K Ot E11.9 TYPE 2 DIABETES MELLITUS WITHOUT COMPLIC 03/30/2017 DEVI DO JOSSELIN K Ot F17.210 NICOTINE DEPENDENCE, CIGARETTES, UNCOMPL 03/30/2017 DEVI DO, JOSSELIN K Ot F41.9 ANXIETY DISORDER, UNSPECIFIED 03/30/2017 DEVI DO JOSSELIN K Ot I10 ESSENTIAL (PRIMARY) HYPERTENSION 03/30/2017 DEVI DO, JOSSELIN K Ot J44.9 CHRONIC OBSTRUCTIVE PULMONARY DISEASE, U 03/30/2017 DEVI DO, JOSSELIN K Ot R06.02 SHORTNESS OF BREATH 03/30/2017 DEVI DO, JOSSELIN K Ot R06.4 HYPERVENTILATION 03/30/2017 DEVI DO, JOSSELIN K Ot R19.7 DIARRHEA, UNSPECIFIED 03/30/2017 DEVI DO, JOSSELIN K Ot Z79.4 SKILLED NURSING (CURRENT) USE OF INSULIN 03/30/2017 DEVI DO JOSSELIN K Ot Z79.82 SKILLED NURSING (CURRENT) USE OF ASPIRIN 04/02/2017 GALA TALLEY [...] UNSPECIFIED 04/02/2017 GALA TALLEY APRN Ot 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 04/02/2017 GALA TALLEY APRN Ot Z79.82 SKILLED NURSING (CURRENT) USE OF ASPIRIN 04/02/2017 GALA TALLEY APRN Ot Z79.899 OTHER CHILDREN'S SERVICE WORKER (CURRENT) DRUG THERAPY 04/02/2017 DEVI DO, JOSSELIN K Ot E11.9 TYPE 2 DIABETES MELLITUS WITHOUT COMPLIC 04/02/2017 DEVI DO, JOSSELIN K Ot F17.210 NICOTINE DEPENDENCE, CIGARETTES, UNCOMPL 04/02/2017 DEVI DO JOSSELIN K Ot F41.9 ANXIETY DISORDER, UNSPECIFIED 04/02/2017 DEVI DO, JOSSELIN K Ot I10 ESSENTIAL (PRIMARY) HYPERTENSION 04/02/2017 DEVI DO, JOSSELIN K Ot J44.9 CHRONIC OBSTRUCTIVE PULMONARY DISEASE, U 04/02/2017 DEVI DO, JOSSELIN K Ot R06.02 SHORTNESS OF BREATH 04/02/2017 DEVI DO, JSOSELIN K Ot R06.4 HYPERVENTILATION 04/02/2017 DEVI DO, JOSSELIN K Ot R19.7 DIARRHEA, UNSPECIFIED 04/02/2017 DEVI DO, JOSSELIN K Ot 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 04/02/2017 DEVI FOREMAN, JOSSELIN K Ot 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 04/03/2017 TYLER CHUNG MD Ot E11.9 TYPE 2 DIABETES MELLITUS WITHOUT COMPLIC 04/03/2017 TYLER CHUNG MD Ot F17.210 NICOTINE DEPENDENCE, CIGARETTES, UNCOMPL 04/03/2017 TYELR CHUNG MD Ot I10 ESSENTIAL (PRIMARY) HYPERTENSION 04/03/2017 TYLER CHUNG MD Ot I25.2 OLD MYOCARDIAL INFARCTION 04/03/2017 TYLER CHUNG MD Ot J44.9 CHRONIC OBSTRUCTIVE PULMONARY DISEASE, U 04/03/2017 TYLER CHUNG MD Ot N95.1 MENOPAUSAL AND FEMALE CLIMACTERIC STATES 04/03/2017 TYLER CHUNG MD Ot R61 GENERALIZED HYPERHIDROSIS 04/03/2017 TYLER CHUNG MD Ot Z79.82 SKILLED NURSING (CURRENT) USE OF ASPIRIN 04/03/2017 TYLER CHUNG MD Ot Z79.899 OTHER CHILDREN'S SERVICE WORKER (CURRENT) DRUG THERAPY 04/19/2017 GLORIA WALDEN APRN Ot J98.4 OTHER DISORDERS OF LUNG 04/19/2017 GLORIA WALDEN CYLINDER HEAD ASSEMBLER Ot R56.9 UNSPECIFIED CONVULSIONS 06/27/2017 TYLER CHUNG MD Ot E11.9 TYPE 2 DIABETES MELLITUS WITHOUT COMPLIC 06/27/2017 TYLER CHUNG MD Ot F17.210 NICOTINE DEPENDENCE, CIGARETTES, UNCOMPL 06/27/2017 TYLER CHUNG MD Ot I10 ESSENTIAL (PRIMARY) HYPERTENSION 06/27/2017 TYLER CHUNG MD Ot I25.2 OLD MYOCARDIAL INFARCTION 06/27/2017 TYLER CHUNG MD Ot J44.9 CHRONIC OBSTRUCTIVE PULMONARY DISEASE, U 06/27/2017 TYLER CHUNG MD Ot N95.1 MENOPAUSAL AND FEMALE CLIMACTERIC STATES 06/27/2017 TYLER CHUNG MD Ot R61 GENERALIZED HYPERHIDROSIS 06/27/2017 YTLER CHUNG MD, Ot Z79.82 SKILLED NURSING (CURRENT) USE OF ASPIRIN 06/27/2017 TYLER CHUNG MD Ot Z79.899 OTHER CHILDREN'S SERVICE WORKER (CURRENT) DRUG THERAPY 07/01/2017 TYLER CHUNG MD [...] HYPERHIDROSIS 07/01/2017 TYLER CHUNG MD Ot 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 07/01/2017 TYLER CHUNG MD Ot Z79.899 OTHER SKILLED NURSING (CURRENT) DRUG THERAPY 01/24/2018 PRESTON HOLLEY MD Ot R56.9 UNSPECIFIED CONVULSIONS 01/24/2018 PRESTON HOLLEY MD Ot R56.9 UNSPECIFIED CONVULSIONS 01/24/2018 PRESTON HOLLEY MD Ot Z79.899 OTHER CHILDREN'S SERVICE WORKER (CURRENT) DRUG THERAPY 01/24/2018 PRESTON HOLLEY MD [...] HOLLEY MD Ot R56.9 UNSPECIFIED CONVULSIONS 01/24/2018 IRAM, GLORIA E CYLINDER HEAD ASSEMBLER Ot J98.4 OTHER DISORDERS OF LUNG 01/24/2018 GLORIA WALDEN APRN Ot R56.9 UNSPECIFIED CONVULSIONS 01/24/2018 JACKY COROENL Ot E03.9 HYPOTHYROIDISM, UNSPECIFIED 01/24/2018 JACKY CORONEL Ot E11.9 TYPE 2 DIABETES MELLITUS WITHOUT COMPLIC 01/24/2018 JACKY CORONEL Ot E78.00 PURE HYPERCHOLESTEROLEMIA, UNSPECIFIED 01/24/2018 JACKY CORONEL Ot F17.210 NICOTINE DEPENDENCE, CIGARETTES, UNCOMPL 01/24/2018 JACKY CORONEL Ot F31.9 BIPOLAR DISORDER, UNSPECIFIED 01/24/2018 JACKY CORONEL Ot G47.9 SLEEP DISORDER, UNSPECIFIED 01/24/2018 JACKY CORONEL Ot I25.2 OLD MYOCARDIAL INFARCTION 01/24/2018 JACKY CORONEL Ot J11.1 FLU DUE TO UNIDENTIFIED INFLUENZA VIRUS 01/24/2018 JACKY CORONEL Ot J43.9 EMPHYSEMA, UNSPECIFIED 01/24/2018 JACKY CORONEL Ot N39.0 URINARY TRACT INFECTION, SITE NOT SPECIF 01/24/2018 JACKY CORONEL Ot R11.2 NAUSEA WITH VOMITING, UNSPECIFIED 01/24/2018 JACKY CORONEL Ot R19.7 DIARRHEA, UNSPECIFIED 01/24/2018 JACKY CORONEL Ot 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 01/24/2018 JACKY CORONEL Ot Z79.82 SKILLED NURSING (CURRENT) USE OF ASPIRIN 01/24/2018 JACKY CORONEL Ot Z88.0 ALLERGY STATUS TO PENICILLIN 01/24/2018 JACKY CORONEL Ot Z90.49 ACQUIRED ABSENCE OF OTHER SPECIFIED PART 01/24/2018 JACKY CORONEL Ot Z90.710 ACQUIRED ABSENCE OF BOTH CERVIX AND UTER 01/24/2018 JACKY CORONEL Ot Z90.89 ACQUIRED ABSENCE OF OTHER ORGANS 01/24/2018 PRESTON HOLLEY MD Ot R56.9 UNSPECIFIED CONVULSIONS 01/24/2018 PRESTON HOLLEY MD Ot R56.9 UNSPECIFIED CONVULSIONS 01/24/2018 PRESTON HOLLEY MD Ot Z79.899 OTHER CHILDREN'S SERVICE WORKER (CURRENT) DRUG THERAPY 01/24/2018 LEYDI KRUSE, PRESTON Montelongo Ot R56.9 UNSPECIFIED CONVULSIONS 01/24/2018 KAMILLE CHAVEZ DO Ot E66.9 OBESITY, UNSPECIFIED 01/24/2018 KAMILLE CHAVEZ DO Ot J44.9 CHRONIC OBSTRUCTIVE PULMONARY DISEASE, U 01/24/2018 KAMILLE CHAVEZ DO M Ot Z72.0 TOBACCO USE 01/24/2018 KAMILLE CHAVEZ DO Ot E66.9 OBESITY, UNSPECIFIED 01/24/2018 KAMILLE CHAVEZ DO Ot J43.9 EMPHYSEMA, UNSPECIFIED 01/24/2018 KAMILLE CHAVEZ DO Ot Z72.0 TOBACCO USE 01/24/2018 LEYDI KRUSE, PRESTON Montelongo Ot R56.9 UNSPECIFIED CONVULSIONS 01/24/2018 GLORIA WALDEN [...] DIARRHEA, UNSPECIFIED 01/26/2018 JACKY CORONEL Ot 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 01/26/2018 JACKY CORONEL Ot Z79.82 SKILLED NURSING (CURRENT) USE OF ASPIRIN 01/26/2018 JACKY CORONEL Ot Z88.0 ALLERGY STATUS TO PENICILLIN 01/26/2018 JACKY CORONEL Ot Z90.49 ACQUIRED ABSENCE OF OTHER SPECIFIED PART 01/26/2018 JACKY CORONEL Ot Z90.710 ACQUIRED ABSENCE OF BOTH CERVIX AND UTER 01/26/2018 JACKY CORONEL Ot Z90.89 ACQUIRED ABSENCE OF OTHER ORGANS 01/26/2018 BUSHRA SINGH 465.8 ACUTE UPPER RESPIRATORY INFECTIONS OF OTHER MULTIPLE SITES 01/26/2018 BUSHRA SINGH 491.20 OBSTRUCTIVE CHRONIC BRONCHITIS, WITHOUT EXACERBATION 01/26/2018 BUSHRA SINGH 786.05 SHORTNESS OF BREATH 01/26/2018 BUSHRA SINGH J06.9 ACUTE UPPER RESPIRATORY INFECTION, UNSPECIFIED 01/26/2018 BUSHRA SINGH J44.9 CHRONIC OBSTRUCTIVE PULMONARY DISEASE, UNSPECIFIED 01/26/2018 BUSHRA SINGH R06.02 SHORTNESS OF BREATH 01/28/2018 MALLY BRITO DO Ot K21.9 GASTRO-ESOPHAGEAL REFLUX DISEASE WITHOUT 01/28/2018 MALLY BRITO DO Ot Z01.818 ENCOUNTER FOR OTHER PREPROCEDURAL EXAMIN 01/28/2018 MALLY BRITO DO Ot Z12.11 ENCOUNTER FOR SCREENING FOR MALIGNANT NE 01/28/2018 GLORIA WALDEN APRN Ot J98.4 OTHER DISORDERS OF LUNG 01/28/2018 GLORIA WALDEN APRN Ot R56.9 UNSPECIFIED CONVULSIONS 01/29/2018 MALLY BRITO DO Ot K21.9 GASTRO-ESOPHAGEAL REFLUX DISEASE WITHOUT 01/29/2018 MALLY BRITO DO Ot Z01.818 ENCOUNTER FOR OTHER PREPROCEDURAL EXAMIN 01/29/2018 MALLY BRITO DO Ot Z12.11 ENCOUNTER FOR SCREENING FOR MALIGNANT NE 02/02/2018 MALLY BRITO DO Ot E03.9 HYPOTHYROIDISM, UNSPECIFIED 02/02/2018 MALLY BRITO DO Ot E11.9 TYPE 2 DIABETES MELLITUS WITHOUT COMPLIC 02/02/2018 MALLY BRITO DO Ot E78.00 PURE HYPERCHOLESTEROLEMIA, UNSPECIFIED 02/02/2018 MALLY BRITO DO Ot F17.210 NICOTINE DEPENDENCE, CIGARETTES, UNCOMPL 02/02/2018 MALLY BRITO DO Ot F31.9 BIPOLAR DISORDER, UNSPECIFIED 02/02/2018 MALLY BRITO DO Ot F41.9 ANXIETY DISORDER, UNSPECIFIED 02/02/2018 MALLY BRITO DO Ot I10 ESSENTIAL (PRIMARY) HYPERTENSION 02/02/2018 MALLY BRITO DO Ot J44.9 CHRONIC OBSTRUCTIVE PULMONARY DISEASE, U 02/02/2018 MALLY BRITO DO Ot J45.909 UNSPECIFIED ASTHMA, UNCOMPLICATED 02/02/2018 MALLY BRITO DO Ot K21.0 GASTRO-ESOPHAGEAL REFLUX DISEASE WITH ES 02/02/2018 MALLY BRITO DO Ot K29.70 GASTRITIS, UNSPECIFIED, WITHOUT BLEEDING 02/02/2018 MALLY BRITO DO Ot K44.9 DIAPHRAGMATIC HERNIA WITHOUT OBSTRUCTION 02/02/2018 MALLY BRITO DO Ot Z79.4 SKILLED NURSING (CURRENT) USE OF INSULIN 02/02/2018 MALLY BRITO DO Ot 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 02/02/2018 MALLY BRITO DO Ot Z79.899 OTHER CHILDREN'S SERVICE WORKER (CURRENT) DRUG THERAPY 02/02/2018 MALLY BRITO DO Ot Z80.0 FAMILY HISTORY OF MALIGNANT NEOPLASM OF 02/02/2018 MALLY BRITO DO Ot Z88.0 ALLERGY STATUS TO PENICILLIN 02/02/2018 MALLY BRITO DO Ot Z88.5 ALLERGY STATUS TO NARCOTIC AGENT STATUS 02/04/2018 MALLY BRITO DO Ot E03.9 HYPOTHYROIDISM, UNSPECIFIED 02/04/2018 MALLY BRITO DO Ot E11.9 TYPE 2 DIABETES MELLITUS WITHOUT COMPLIC 02/04/2018 MALLY BRITO DO Ot E78.00 PURE HYPERCHOLESTEROLEMIA, UNSPECIFIED 02/04/2018 MALLY BRITO DO Ot F17.210 NICOTINE DEPENDENCE, CIGARETTES, UNCOMPL 02/04/2018 MALLY BRITO DO Ot F31.9 BIPOLAR DISORDER, UNSPECIFIED 02/04/2018 MALLY BRITO DO Ot F41.9 ANXIETY DISORDER, UNSPECIFIED 02/04/2018 MALLY BRITO DO Ot I10 ESSENTIAL (PRIMARY) HYPERTENSION 02/04/2018 MALLY BRITO DO Ot J44.9 CHRONIC OBSTRUCTIVE PULMONARY DISEASE, U 02/04/2018 MALLY BRITO DO Ot J45.909 UNSPECIFIED ASTHMA, UNCOMPLICATED 02/04/2018 MALLY BRITO DO Ot K21.0 GASTRO-ESOPHAGEAL REFLUX DISEASE WITH ES 02/04/2018 MALLY BRITO DO Ot K29.70 GASTRITIS, UNSPECIFIED, WITHOUT BLEEDING 02/04/2018 MALLY BRITO DO Ot K44.9 DIAPHRAGMATIC HERNIA WITHOUT OBSTRUCTION 02/04/2018 MALLY BRITO DO Ot 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 02/04/2018 MALLY BRITO DO Ot 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 02/04/2018 MALLY BRITO DO Ot Z79.899 OTHER SKILLED NURSING (CURRENT) DRUG THERAPY 02/04/2018 MALLY BRITO DO Ot Z80.0 FAMILY HISTORY OF MALIGNANT NEOPLASM OF 02/04/2018 MALLY BRITO DO Ot Z88.0 ALLERGY STATUS TO PENICILLIN 02/04/2018 MALLY BRITO DO Ot Z88.5 ALLERGY STATUS TO NARCOTIC AGENT STATUS 02/10/2018 PRESTON HOLLEY MD Ot R56.9 UNSPECIFIED CONVULSIONS 02/10/2018 PRESTON HOLLEY MD Ot R56.9 UNSPECIFIED CONVULSIONS 02/10/2018 PRESTON HOLLEY MD Ot Z79.899 OTHER CHILDREN'S SERVICE WORKER (CURRENT) DRUG THERAPY 02/10/2018 PRESTON HOLLEY MD Ot R56.9 UNSPECIFIED CONVULSIONS 02/10/2018 KAMILLE CHAVEZ DO Ot E66.9 OBESITY, UNSPECIFIED 02/10/2018 KAMILLE CHAVEZ DO Ot J44.9 CHRONIC OBSTRUCTIVE PULMONARY DISEASE, U 02/10/2018 KAMILLE CHAVEZ DO Ot Z72.0 TOBACCO USE 02/10/2018 KAMILLE CHAVEZ DO Ot E66.9 OBESITY, UNSPECIFIED 02/10/2018 KAMILLE CHAVEZ DO Ot J43.9 EMPHYSEMA, UNSPECIFIED 02/10/2018 KAMILLE CHAVEZ DO Ot Z72.0 TOBACCO USE 02/10/2018 PRESTON HOLLEY MD Ot R56.9 UNSPECIFIED CONVULSIONS 02/10/2018 GLORIA WALDEN APRN Ot J98.4 OTHER DISORDERS OF LUNG 02/10/2018 GLORIA WALDEN APRN Ot R56.9 UNSPECIFIED CONVULSIONS 02/10/2018 PRESTON HOLLEY MD Ot R56.9 UNSPECIFIED CONVULSIONS 02/10/2018 PRESTON HOLLEY MD Ot R56.9 UNSPECIFIED CONVULSIONS 02/10/2018 PRESTON HOLLEY MD Ot Z79.899 OTHER CHILDREN'S SERVICE WORKER (CURRENT) DRUG THERAPY 02/10/2018 PRESTON HOLLEY MD Ot R56.9 UNSPECIFIED CONVULSIONS 02/10/2018 KAMILLE CHAVEZ DO Ot E66.9 OBESITY, UNSPECIFIED 02/10/2018 KAMILLE CHAVEZ DO Ot J44.9 CHRONIC OBSTRUCTIVE PULMONARY DISEASE, U 02/10/2018 KAMILLE CHAVEZ DO M Ot Z72.0 TOBACCO USE 02/10/2018 KAMILLE CHAVEZ DO Ot E66.9 OBESITY, UNSPECIFIED 02/10/2018 KAMILLE CHAVEZ DO Ot J43.9 EMPHYSEMA, UNSPECIFIED 02/10/2018 KAMILLE CHAVEZ DO Ot Z72.0 TOBACCO USE 02/10/2018 PRESTON HOLLEY MD Ot R56.9 UNSPECIFIED CONVULSIONS 02/10/2018 GLORIA WALDEN APRN Ot J98.4 OTHER DISORDERS OF LUNG 02/10/2018 GLORIA WALDEN APRN Ot R56.9 UNSPECIFIED CONVULSIONS 02/24/2018 KARTHIK WARD [employer] MAKER Ot E78.5 HYPERLIPIDEMIA, UNSPECIFIED 02/24/2018 KARTHIK WARD [employer] Ot I10 ESSENTIAL (PRIMARY) HYPERTENSION 02/24/2018 KARTHIK WARD [employer] Ot R06.09 OTHER FORMS OF DYSPNEA 02/24/2018 KARTHIK WARD [employer] Ot R07.9 CHEST PAIN, UNSPECIFIED 02/26/2018 MALLY BRITO DO Ot R19.7 DIARRHEA, UNSPECIFIED 03/09/2018 GLORIA WALDEN APRN Ot J45.909 UNSPECIFIED ASTHMA, UNCOMPLICATED 03/09/2018 GLORIA WALDEN APRN Ot Z72.0 TOBACCO USE 03/09/2018 BRITO DO, MALLY D Ot R19.7 DIARRHEA, UNSPECIFIED 03/14/2018 GLORIA WALDEN APRN Ot J45.909 UNSPECIFIED ASTHMA, UNCOMPLICATED 03/14/2018 GLORIA WALDEN APRN Ot Z72.0 TOBACCO USE 03/15/2018 PRESTON HOLLEY MD Ot R56.9 UNSPECIFIED CONVULSIONS 03/15/2018 PRESTON HOLLEY MD Ot R56.9 UNSPECIFIED CONVULSIONS 03/15/2018 PRESTON HOLLEY MD Ot Z79.899 OTHER SKILLED NURSING (CURRENT) DRUG THERAPY 03/15/2018 PRESTON HOLLEY MD Ot R56.9 UNSPECIFIED CONVULSIONS 03/15/2018 KAMILLE CHAVEZ DO Ot E66.9 OBESITY, UNSPECIFIED 03/15/2018 KAMILLE CHAVEZ DO Ot J44.9 CHRONIC OBSTRUCTIVE PULMONARY DISEASE, U 03/15/2018 KAMILLE CHAVEZ DO Ot Z72.0 TOBACCO USE 03/15/2018 KAMILLE CHAVEZ DO Ot E66.9 OBESITY, UNSPECIFIED 03/15/2018 KAMILLE CHAVEZ DO Ot J43.9 EMPHYSEMA, UNSPECIFIED 03/15/2018 KAMILLE CHAVEZ DO Ot Z72.0 TOBACCO USE 03/15/2018 PRESTON HOLLEY MD Ot R56.9 UNSPECIFIED CONVULSIONS 03/15/2018 GLORIA WALDEN APRN Ot J98.4 OTHER DISORDERS OF LUNG 03/15/2018 GLORIA WALDEN APRN Ot R56.9 UNSPECIFIED CONVULSIONS 03/15/2018 KARTHIK WARD [employer] Ot E78.5 HYPERLIPIDEMIA, UNSPECIFIED 03/15/2018 KARTHIK WARD [employer] Ot I10 ESSENTIAL (PRIMARY) HYPERTENSION 03/15/2018 KARTHIK WARD [employer] Ot R06.09 OTHER FORMS OF DYSPNEA 03/15/2018 KARTHIK WARD [employer] Ot R07.9 CHEST PAIN, UNSPECIFIED 03/15/2018 MALLY BRITO DO Ot R19.7 DIARRHEA, UNSPECIFIED 03/15/2018 GLORIA WALDEN APRN Ot J45.909 UNSPECIFIED ASTHMA, UNCOMPLICATED 03/15/2018 GLORIA WALDEN APRN Ot Z72.0 TOBACCO USE 03/16/2018 KARTHIK WARD [employer] Ot E78.5 HYPERLIPIDEMIA, UNSPECIFIED 03/16/2018 KARTHIK WARD [employer] Ot I10 ESSENTIAL (PRIMARY) HYPERTENSION 03/16/2018 KARTHIK WARD [employer] Ot R06.09 OTHER FORMS OF DYSPNEA 03/16/2018 KARTHIK WARD [employer] Ot R07.9 CHEST PAIN, UNSPECIFIED 03/22/2018 DEVI JOSSELIN K Ot E03.9 HYPOTHYROIDISM, UNSPECIFIED 03/22/2018 DEVI DO, JOSSELIN K Ot E11.65 TYPE 2 DIABETES MELLITUS WITH HYPERGLYCE 03/22/2018 DEVI DO, JOSSELIN K Ot E78.00 PURE HYPERCHOLESTEROLEMIA, UNSPECIFIED 03/22/2018 DEVI DO, JOSSELIN K Ot F17.210 NICOTINE DEPENDENCE, CIGARETTES, UNCOMPL 03/22/2018 DEVI DO JOSSELIN K Ot F31.9 BIPOLAR DISORDER, UNSPECIFIED 03/22/2018 DEVI DO JOSSELIN K Ot F41.9 ANXIETY DISORDER, UNSPECIFIED 03/22/2018 DEVI DO JOSSELIN K Ot I10 ESSENTIAL (PRIMARY) HYPERTENSION 03/22/2018 DEVI DO JOSSELIN K Ot J43.9 EMPHYSEMA, UNSPECIFIED 03/22/2018 DEVI DO JOSSELIN K Ot K21.9 GASTRO-ESOPHAGEAL REFLUX DISEASE WITHOUT 03/22/2018 DEVI DO JOSSELIN K Ot R73.9 HYPERGLYCEMIA, UNSPECIFIED 03/22/2018 DEVI JOSSELIN K Ot 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 03/22/2018 DEVI DO JOSSELIN K Ot Z79.51 CHILDREN'S SERVICE WORKER (CURRENT) USE OF INHALED STERO 03/22/2018 DEVI RONEN FOREMANA K Ot 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 03/22/2018 DEVI DO JOSSELIN K Ot Z82.49 FAMILY HX OF ISCHEM HEART DIS AND OTH DI 03/22/2018 DEVI FOREMAN JOSSELIN K Ot Z87.19 PERSONAL HISTORY OF OTHER DISEASES OF TH 03/22/2018 RONEN QUINONEZ DOA K Ot Z88.0 ALLERGY STATUS TO PENICILLIN 03/22/2018 DEVI FOREMAN JOSSELIN K Ot Z90.49 ACQUIRED ABSENCE OF OTHER SPECIFIED PART 03/22/2018 DEVI RONEN FOREMANA K Ot Z90.710 ACQUIRED ABSENCE OF BOTH CERVIX AND UTER 03/22/2018 DEVI DO, JOSSELIN K Ot Z90.89 ACQUIRED ABSENCE OF OTHER ORGANS 03/22/2018 JOSSELIN QUINONEZ DO Ot Z91.041 RADIOGRAPHIC DYE ALLERGY STATUS 03/22/2018 GLORIA WALDEN APRN Ot J45.909 UNSPECIFIED ASTHMA, UNCOMPLICATED 03/22/2018 GLORIA WALDEN APRN Ot J45.909 UNSPECIFIED ASTHMA, UNCOMPLICATED 03/24/2018 GLORIA WALEDN APRN Ot R91.8 OTHER NONSPECIFIC ABNORMAL FINDING OF GUSTAVO 03/24/2018 GLORIA WALDEN APRN Ot Z72.0 TOBACCO USE Procedures There is no data. Results Test [...] Complete urinalysis with reflex to culture YES NRG Bacterial urine culture - 01/24/18 19:05 URINE CULTURE RESULTS MORE THAN 3 ISOLATES NRG Complete blood count (CBC) with automated [...] A AND B ANTIGENS BY IA [facility] Comprehensive metabolic panel - 01/24/18 [...] or plasma urea nitrogen/creatinine mass ratio 19 [facility] Serum or plasma creatinine measurement with calculation [...] Influenza NEGATIVE FOR A and B 0.00-0.00 Capillary blood glucose measurement by glucometer (mass/volume) - 03/17/18 19: 23 Capillary blood glucose measurement by glucometer (mass/volume) 245 mg/dL 70-110 Complete urinalysis with reflex to culture - 03/17/18 19:42 Urine color determination YELLOW NRG Urine clarity determination CLEAR NRG Urine pH measurement by test strip 6.5 5-9 Specific gravity of urine by test strip 1.020 1.016- 1.022 Urine protein assay by test strip, semi-quantitative 1+ NEGATIVE Urine glucose detection by automated test strip 4+ NEGATIVE Erythrocytes detection in urine sediment by light microscopy NEGATIVE NEGATIVE Urine ketones detection by automated test strip NEGATIVE NEGATIVE Urine nitrite detection by test strip NEGATIVE NEGATIVE Urine total bilirubin detection by test strip NEGATIVE NEGATIVE Urine urobilinogen measurement by automated test strip (mass/volume) 4 mg/dL NORMAL Urine leukocyte esterase detection by [...] detection in urine sediment by light microscopy MODERATE NRG Complete urinalysis with reflex to culture NO NRG Urine drug screening test - 03/17/18 19:42 Urine phencyclidine detection by screening method NEGATIVE [...] automated white blood cell (WBC) differential - 03/17/18 20:00 Blood leukocytes automated count (number/volume) 6.8 10*3/uL 4.3-11.0 Blood erythrocytes automated count (number/volume) 4.33 10*6/uL 4.35-5.85 Venous blood hemoglobin measurement (mass/volume) 14.6 g/dL 11.5-16.0 Blood hematocrit (volume fraction) 41 % 35-52 Automated erythrocyte mean corpuscular volume 95 [foz_us] 80-99 Automated erythrocyte mean corpuscular hemoglobin (mass per erythrocyte) 34 pg 25-34 Automated erythrocyte mean corpuscular hemoglobin concentration measurement ( mass/volume) 36 g/dL 32-36 Automated erythrocyte distribution width ratio 12.6 % 10.0-14.5 Automated blood platelet count (count/volume) 246 10*3/uL 130-400 Automated blood platelet mean volume measurement 10.2 [foz_us] 7.4-10.4 Automated blood neutrophils/100 leukocytes 62 % 42-75 Automated blood lymphocytes/100 leukocytes 28 % 12-44 Blood monocytes/100 leukocytes 7 % 0-12 Automated blood eosinophils/100 leukocytes 3 % 0-10 Automated blood basophils/100 leukocytes 0 % 0-10 Blood neutrophils automated count (number/volume) 4.2 10*3 1.8-7.8 Blood lymphocytes automated count (number/volume) 1.9 10*3 1.0-4.0 Blood monocytes automated count (number/volume) 0.5 10*3 0.0-1.0 Automated eosinophil count 0.2 10*3/uL 0.0-0.3 Automated blood basophil count (count/volume) 0.0 10*3/uL 0.0-0.1 Comprehensive metabolic panel - 03/17/18 20:00 Serum or plasma sodium measurement (moles/volume) 139 mmol/L 135-145 Serum or plasma potassium measurement (moles/volume) 3.9 mmol/L 3.6-5.0 Serum or plasma chloride measurement (moles/volume) 106 mmol/L 98-107 Carbon dioxide 21 mmol/L 21-32 Serum or plasma anion gap determination (moles/volume) 12 mmol/L 5-14 Serum or plasma urea nitrogen measurement (mass/volume) 8 mg/dL 7-18 Serum or plasma creatinine measurement (mass/volume) 0.65 mg/dL 0.60-1.30 Serum or plasma urea nitrogen/creatinine mass ratio 12 NRG Serum or plasma creatinine measurement with calculation of estimated glomerular filtration rate > NRG Serum or plasma glucose measurement (mass/volume) 211 mg/dL 70-105 Serum or plasma calcium measurement (mass/volume) 9.1 mg/dL 8.5-10.1 Serum or plasma total bilirubin measurement (mass/volume) 0.4 mg/dL 0.1-1.0 Serum or plasma alkaline phosphatase measurement (enzymatic activity/volume) 85 U/L 40-136 Serum or plasma aspartate aminotransferase measurement (enzymatic activity/ volume) 11 U/L 5-34 Serum or plasma alanine aminotransferase measurement (enzymatic activity/volume ) 17 U/L 0-55 Serum or plasma protein measurement (mass/volume) 6.8 g/dL 6.4-8.2 Serum or plasma albumin measurement (mass/volume) 4.2 g/dL 3.2-4.5 Serum or plasma amylase measurement (enzymatic activity/volume) - 03/17/18 20: 00 Serum or plasma amylase measurement (enzymatic activity/volume) 57 U /L 25-125 Lipase - 03/17/18 20:00 Lipase 27 U/L 8-78 Encounters ACCT No. Visit Date/Time Discharge Status Pt. 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[facility] SLEEP J45.909 ASTHMA [id number] 03/17/2018 19:07:00 03/17/2018 20:59:00 DIS Outpatient JOSSELIN QUINONEZ DO [facility] ER BS HIGH, MASS IN LUNG [id number] 03/15/2018 09:30:00 03/15/2018 23:59:59 CLS Preadmit GLORIA WALDEN APRN [facility] PULM J45.909 ASTHMA [id number] 03/08/2018 12:09:00 03/08/2018 23:59:59 CLS Outpatient GLORIA WALDEN [employer]LINDER HEAD 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 [facility] RAD J45.909 ASTHMA [id number] 03/04/2018 12:00:00 03/04/2018 23:59:59 CLS Preadmit MALLY BRITO DO [facility] CARD DIARRHEA [id number] 02/25/2018 08:02:00 02/25/2018 23:59:59 CLS Outpatient MALLY BRITO DO [facility] RAD DIARRHEA [id number] 02/23/2018 07:05:00 02/23/2018 23:59:59 CLS Outpatient KARTHIK WARD [employer] [facility] CARD CHEST PAIN, EXERTIONAL DYSPNEA [id number] 02/10/2018 14:17:00 02/10/2018 23:59:59 CLS Preadmit KARTHIK WARD L [employer] [facility] CARD CHEST PAIN,EXERTIONAL DYSPNEA [id number] 02/02/2018 12:27:00 02/02/2018 15:40:00 DIS Outpatient BRITO MALLY FOREMAN [facility] ENDO SCREENING/GERD [id number] 01/28/2018 05:35:00 01/28/2018 12:23:00 DIS Outpatient BRITO MALLY FOREMAN [facility] PREOP COLONOSCOPY/EGD [id number] 01/24/2018 18:04:00 01/24/2018 21:28:00 DIS Emergency JACKY CORONEL [facility] ER DIAHRREA,VOMITING [id number] 04/20/2017 10:15:00 04/20/2017 23:59:59 CLS Preadmit GLORIA WALDEN APRN [facility] PUL RESTRICTIVE LUNG DISEASE,SEIZURE [id number] 03/12/2017 13:00:00 04/19/2017 00:01:00 DIS Outpatient GLORIA WALDEN APRN [facility] PUL RESTRICTIVE LUNG DISEASE,SEIZURE [id number] 03/30/2017 19:26:00 03/30/2017 21:15:00 DIS Emergency JOSSELIN QUINONEZ DO [facility] ER SOA [id number] 03/28/2017 13:33:00 03/28/2017 17:13:00 DIS Emergency TYLER CHUNG MD [facility] ER SOA [id number] 03/24/2017 14:15:00 03/24/2017 23:59:59 CLS Preadmit KAMILLE CHAVEZ DO [facility] RAD J43.9 COPD [id number] 03/24/2017 13:23:00 03/24/2017 15:50:00 DIS Emergency GALA TALLEY APRN [facility] ER CHEST PAIN [id number] 03/21/2017 09:07:00 03/21/2017 12:05:00 DIS Emergency GALA TALLEY APRN [facility] ER BLOODY AND FREQUENT STOOL [id number] 01/26/2017 12:34:00 01/27/2017 13:40:00 DIS Inpatient STIVEN RAYMOND MD [facility] 4TH DIVERTICULITIS [id number] 01/23/2017 12:36:00 01/23/2017 15:34:00 DIS Emergency TALLEY GALA George LEDBETTER [facility] ER FEVER/CHILLS CONSTIPATION/ DIARRHEA [id number] 01/12/2017 09:12:00 01/12/2017 23:59:59 CLS Outpatient PRESTON HOLLEY MD [facility] RT SEIZURE [id number] 12/20/2016 20:10:00 12/21/2016 06:10:00 DIS Outpatient KAMILLE CHAVEZ DO [facility] SLEEP SNORING [id number] 09/23/2016 08:51:00 09/23/2016 23:59:59 CLS Outpatient KAMILLE CHAVEZ DO [facility] RAD COPD,TOBACCO USER [id number] 08/13/2016 14:29:00 08/13/2016 23:59:59 CLS Outpatient KAMILLE CHAVEZ DO [facility] RT COPD,OBESITY [id number] 06/27/2016 15:19:00 06/27/2016 23:59:59 CLS Outpatient PRESTON HOLLEY MD [facility] RAD SEIZURE [id number] 05/15/2016 06:57:00 05/15/2016 12:50:00 DIS Outpatient RENETTA KRUSE FACCVALENTIN FACP CCDS [facility] CATH ANGINA,SOB LEG PAIN [id number] 05/12/2016 11:18:00 05/12/2016 23:59:59 CLS Outpatient PRESTON HOLLEY MD [facility] LAB SEIZURES [id number] 05/12/2016 09:25:00 05/12/2016 23:59:59 CLS Outpatient PRESTON HOLLEY MD [facility] RT SEIZURE NOS [id number] 02/27/2016 14:00:00 04/03/2016 09:43:00 DIS Outpatient CHAVA SHAFER MD [facility] REHAB CERVICAL STRAIN [id number] 02/10/2016 11:48:00 02/10/2016 14:00:00 DIS Emergency JACKY CORONEL [facility] ER R FOOT INJ [id number] 03/04/2018 09:20:00 03/04/2018 23:59:59 CLS Outpatient GERARDO KISER APRN [facility] [id number] 01/26/2018 21:02:00 01/26/2018 22:39:00 DIS Out[place] [facility] [place] [id number] 01/26/2018 21:13:23 Document Registration [id number] 03/11/2017 08:45:00 Document Registration
[2018-03-31] MEDS ORDERED: DOXY100C2 (11:13)
[2018-03-31] MEDS ORDERED: NS IV 1000 ML 1,000 ML IV ONE (11:40)
[2018-03-31] MEDS ORDERED: ONDANSETRON 4 MG/2 ML (SDV) Z0FRAN IVP ONE (11:45)
--- NOTE | 2018-03-31 11:47 | Diagnostic Imaging Report ---
INDICATION: Bronchitis. History of asthma and tobacco use. TECHNIQUE: Two views of the chest COMPARISON: 01/24/2018 FINDINGS: The lung volumes are normal. No focal consolidation is seen. No large pleural effusion or pneumothorax is seen. The cardiomediastinal silhouette is normal in size and contour. No acute osseous abnormality is seen. IMPRESSION: No acute pulmonary abnormality seen. Dictated by: Dictated on workstation # [id number]
[2018-03-31 12:03] LABS: BASOPHILS % (AUTO) 0 % (0-10); EOSINOPHILS # (AUTO) 0.1 10^3/uL (0.0-0.3); EOSINOPHILS % (AUTO) 2 % (0-10); HEMATOCRIT 39 % (35-52); HEMOGLOBIN 13.7 G/DL (11.5-16.0); LYMPHOCYTES % (AUTO) 35 % (12-44); MEAN CORPUSCULAR HEMOGLOBIN 33 PG (25-34); MEAN CORPUSCULAR HGB CONC 35 G/DL (32-36); MEAN CORPUSCULAR VOLUME 95 FL (80-99); MEAN PLATELET VOLUME 9.8 FL (7.4-10.4); MONOCYTES # (AUTO) 0.4 X 10^3 (0.0-1.0); MONOCYTES % (AUTO) 6 % (0-12); NEUTROPHILS # (AUTO) 3.2 X 10^3 (1.8-7.8); NEUTROPHILS % (AUTO) 56 % (42-75); PLATELET COUNT 201 10^3/uL (130-400); RED BLOOD COUNT 4.15 10^6/uL (4.35-5.85); RED CELL DISTRIBUTION WIDTH 12.4 % (10.0-14.5); WHITE BLOOD COUNT 5.7 10^3/uL (4.3-11.0)
[2018-03-31 12:27] LABS: ALANINE AMINOTRANSFERASE 17 U/L (0-55); ALBUMIN 3.8 GM/DL (3.2-4.5); ALKALINE PHOSPHATASE 69 U/L (40-136); BILIRUBIN,TOTAL 0.4 MG/DL (0.1-1.0); BUN/CREATININE RATIO 19; CALCIUM 9.1 MG/DL (8.5-10.1); CARBON DIOXIDE 27 MMOL/L (21-32); CHLORIDE 106 MMOL/L (98-107); CREATININE SERUM 0.78 MG/DL (0.60-1.30); GFR ESTIMATED > 60; GLUCOSE 300 MG/DL (70-105); MAGNESIUM 1.9 MG/DL (1.8-2.4); POTASSIUM 3.6 MMOL/L (3.6-5.0); SODIUM 141 MMOL/L (135-145)
--- NOTE | 2018-03-31 13:07 | ED General ---
General Chief Complaint: Cough/Cold/Flu Symptoms Stated Complaint: POSS PNEUMONIA Nursing Triage Note: AMBULATED TO ROOM 10. STATES SHE IS BEING TREATED FOR BRONCHITIS AT [facility] WITH ABX. WENT TO [facility] TODAY AND HAD A X-RAY DONE AND DX WITH PNEUMONIA. STATES [facility] WANTS TO KEEP HER ON ORAL ABX AND SHE DOES NOT THINK THEY KNOW WHAT THEY ARE DOING. Nursing Sepsis Screen: No Definite Risk Source of Information: Patient Exam Limitations: No Limitations History of Present Illness Date Seen by Provider: March 31, 2018 Time Seen by Provider: 11:03 Initial Comments This 47-year-old woman presents to the emergency room after feeling ill for about 6 days. She has been taking doxycycline and steroids. She finished 5 days of the steroids. She is being treated for bronchitis after being seen at [facility]. She is on doxycycline. She reports nausea and vomiting, cough, and some shortness of air. She wishes to be reevaluated for second opinion. She is afebrile. She does have some body aching. Patient continues to smoke despite an 10-year-old respiratory issues. She would like to quit but states no one has prescribed her nicotine patches. Allergies and Home Medications Allergies Coded Allergies: Iodinated Contrast- Oral and IV Dye (Verified Allergy, Unknown, 01/28/18) Penicillins (Verified Allergy, Unknown, 01/26/17) Home Medications Albuterol Sulfate 1.25 Mg/3 Ml Vial.neb, 1.25 MG IH QID PRN for SHORTNESS OF BREATH, (Reported) Albuterol Sulfate 1 Puff Puff, 2 PUFF IH QID PRN for SHORTNESS OF BREATH, ( Reported) Alprazolam 2 Mg Tablet, 2 MG PO TID PRN for ANXIETY, (Reported) Aspirin 81 Mg Tab.chew, 81 MG PO DAILY, (Reported) Atenolol 50 Mg Tablet, 50 MG PO DAILY, (Reported) Atorvastatin Calcium 40 Mg Tablet, 40 MG PO HS, (Reported) Budesonide/Formoterol Fumarate 10.2 Gm Hfa.aer.ad, 2 PUFF IH BID, (Reported) Famotidine 20 Mg Tablet, 20 MG PO BID, (Reported) Hydrocodone/Acetaminophen 1 Each Tablet, 1 TAB PO TID, (Reported) Insulin Aspart 300 Units/3 Ml Solution, 40 UNITS SQ TIDWM, (Reported) Insulin Determir 1,000 Units/10 Ml Soln, 50 UNITS SQ BID, (Reported) Levothyroxine Sodium 150 Mcg Tablet, 150 MCG PO DAILY, (Reported) Montelukast Sodium 10 Mg Tablet, 10 MG PO DAILY, (Reported) Nicotine 1 Each Patch.dysq, 14 MG TD DAILY Prescribed by: BUSHRA MONIQUE on 03/31/18 1311 Ondansetron 8 Mg Tab.rapdis, 8 MG PO Q6H PRN for NAUSEA/VOMITING-1ST LINE Prescribed by: JACKY ALCARAZ on 01/24/182111 Ondansetron 4 Mg Tab.rapdis, 4 MG SL Q4H PRN for NAUSEA/VOMITING-1ST LINE Prescribed by: BUSHRA MONIQUE on 03/31/18 131 Oxybutynin Chloride 10 Mg Tab.er.24, 10 MG PO DAILY, (Reported) Pantoprazole Sodium 40 Mg Tablet.dr, 40 MG PO DAILY Prescribed by: MALLY BRITO on 02/02/18 1449 Prednisone 20 Mg Tab, 20 MG PO DAILY Prescribed by: BUSHRA MONIQUE on 03/31/18 1311 Sucralfate 1 Gm Tablet, 1 GM PO QID Prescribed by: MALLY BRITO on 02/02/18 1449 Patient Home Medication List Home Medication List Reviewed: Yes Review of Systems Constitutional: see HPI EENTM: no symptoms reported Respiratory: see HPI Cardiovascular: no symptoms reported Gastrointestinal: see HPI Genitourinary: no symptoms reported : No Musculoskeletal: see HPI Skin: no symptoms reported Psychiatric/Neurological: No Symptoms Reported Hematologic/Lymphatic: No Symptoms Reported Immunological/Allergic: no symptoms reported Past Grbbzqw-Xgccsd-Hevpww Hx Past Med/Social Hx: Reviewed Nursing Past Med/Soc Hx Patient Social History Alcohol Use: Denies Use Recreational Drug Use: No Smoking Status: Current Everyday Smoker Type Used: Cigarettes 2nd Hand Smoke Exposure: Yes Recent Foreign Travel: No Contact w/Someone Who Travel: No Recent Infectious Disease Expo: No Recent Hopitalizations: No Immunizations Up To Date Tetanus Booster (TDap): Unknown PED Vaccines UTD: No Date of Pneumonia Vaccine: Jul 11, 2014 Date of Influenza Vaccine: Nov 02, 2016 Seasonal Allergies Seasonal Allergies: Yes Past Medical History Surgeries: Yes (BREAST LUMPECTOMY; EGD/COLONOSCOPY; CARDIAC CATH-NO INTERVENTION) Adenoidectomy, Appendectomy, Breast, Cardiac, Hysterectomy, Tonsillectomy Respiratory: Yes (DX LUNG MASS RECENTLY) Asthma, COPD, Emphysema Currently Using CPAP: No Currently Using BIPAP: No Cardiac: Yes High Cholesterol, Hypertension Neurological: No 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 Disorders: No Female 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 Disorders: 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, Menopausal Sexually Transmitted Disease: No HIV/AIDS: No Genitourinary: Yes (INCONTINENCE) Gastrointestinal: Yes (DIVERTICULITIS ) Gastroesophageal Reflux, El's Esophagus, Diverticulosis, Chronic Diarrhea Musculoskeletal: Yes (CHRONIC GENERALIZED PAIN ) Chronic Back Pain Endocrine: Yes Diabetes, Insulin dep, Hypothyroidsim HEENT: No Loss of Vision: Denies Hearing Impairment: Denies Cancer: Yes (LUNG MASS) Did You Recieve Any Treatments: No Psychosocial: Yes Sleep Difficulties, Anxiety, Bipolar Integumentary: No Blood Disorders: No Adverse Reaction/Blood Tranf: No Family Medical History FH: cancer 19 MOTHER Myocardial infarction 19 FATHER (48 years old) No Pertinent Family Hx Physical Exam Vital Signs Vital Signs - First Documented 03/31/18 11:09 Temp 98.7 Pulse 84 Resp 18 B/P (MAP) 122/79 (93) Pulse Ox 98 O2 Delivery Room Air Capillary Refill : Less Than 3 Seconds General Appearance: No Apparent Distress, WD/WN HEENT: PERRL/EOMI, Normal ENT Inspection Neck: Normal Inspection Respiratory: No Accessory Muscle Use, No Respiratory Distress; No Crackles; Wheezing Cardiovascular: Regular Rate, Rhythm, No Edema, No Murmur Gastrointestinal: Normal Bowel Sounds, Non Tender, Soft Extremity: Normal Inspection, No Calf Tenderness, No Pedal Edema Neurologic/Psychiatric: Alert, Oriented x3, No Motor/Sensory Deficits, Normal Mood/Affect, brim pouncer II-XII Norm as Tested Skin: Normal Color, Warm/Dry Progress/Results/Core Measures Suspected Sepsis Recent Fever Within 48 Hours: Yes Infection Criteria Present: Documented Infection New/Unexplained Altered Menta: No Sepsis Screen: No Definite Risk SIRS Temperature:98.7 Pulse: 84 Respiratory Rate: 18 Laboratory Tests 03/31/18 11:55: White Blood Count 5.7 Blood Pressure 122 /79 Mean: 93 Laboratory Tests 03/31/18 11:55: Creatinine 0.78, Platelet Count 201, Total Bilirubin 0.4 Results/Orders Lab Results Laboratory Tests Test 03/31/18 11:55 Range/Units White Blood Count 5.7 4.3-11.0 10^3/uL Red Blood Count 4.15 L 4.35-5.85 10^6/uL Hemoglobin 13.7 11.5-16.0 G/DL Hematocrit 39 35-52 % Mean Corpuscular Volume 95 80-99 FL Mean Corpuscular Hemoglobin 33 25-34 PG Mean Corpuscular Hemoglobin Concent 35 32-36 G/DL Red Cell Distribution Width 12.4 10.0-14.5 % Platelet Count 201 130-400 10^3/uL Mean Platelet Volume 9.8 7.4-10.4 FL Neutrophils (%) (Auto) 56 42-75 % Lymphocytes (%) (Auto) 35 12-44 % Monocytes (%) (Auto) 6 0-12 % Eosinophils (%) (Auto) 2 0-10 % Basophils (%) (Auto) 0 0-10 % Neutrophils # (Auto) 3.2 1.8-7.8 X 10^3 Lymphocytes # (Auto) 2.0 1.0-4.0 X 10^3 Monocytes # (Auto) 0.4 0.0-1.0 X 10^3 Eosinophils # (Auto) 0.1 0.0-0.3 10^3/uL Basophils # (Auto) 0.0 0.0-0.1 10^3/uL Sodium Level 141 135-145 MMOL/L Potassium Level 3.6 3.6-5.0 MMOL/L Chloride Level 106 98-107 MMOL/L Carbon Dioxide Level 27 21-32 MMOL/L Anion Gap 8 5-14 MMOL/L Blood Urea Nitrogen 15 7-18 MG/DL Creatinine 0.78 0.60-1.30 MG/DL Estimat Glomerular Filtration Rate > 60 BUN/Creatinine Ratio 19 Glucose Level 300 H 70-105 MG/DL Calcium Level 9.1 8.5-10.1 MG/DL Magnesium Level 1.9 1.8-2.4 MG/DL Total Bilirubin 0.4 0.1-1.0 MG/DL Aspartate Amino Transf (AST/SGOT) 9 5-34 U/L Alanine Aminotransferase (ALT/SGPT) 17 0-55 U/L Alkaline Phosphatase 69 40-136 U/L Total Protein 6.0 L 6.4-8.2 GM/DL Albumin 3.8 3.2-4.5 GM/DL My Orders Orders - BUSHRA WHITEHEAD MD Chest Pa/Lat (2 View) (03/31/18 11:03) Cbc With Automated Diff (03/31/18 11:40) Comprehensive Metabolic Panel (03/31/18 11:40) Magnesium (03/31/18 11:40) Saline Lock/Iv-Start (03/31/18 11:40) Ns Iv 1000 Ml (Sodium Chloride 0.9%) (03/31/18 11:40) Ondansetron Injection (Zofran Injectio (03/31/18 11:45) Iv Push Entry Level Sales Associate Ed (03/31/18 ) Medications Given in ED Vital Signs/I&O Capillary Refill : Less Than 3 Seconds Blood Pressure Mean: 93 Progress Note : Progress Note Patient was treated with Zofran and IV fluids. No significant modalities were found on workup. There is no evidence of pneumonia. Prescriptions were provided. Diagnostic Imaging Diagonstic Imaging: Xray Plain Films/CT/US/NM/MRI: chest Comments Chest x-ray viewed by me and report reviewed. See report below: NAME: YANETH YAÑEZ REC#: [id number] PT STATUS: REG ER : 1970 PHYSICIAN: BUSHRA WHITEHEAD MD ADMIT DATE: 03/31/18/ER Signed Date of Exam: 03/31/18 CHEST PA/LAT (2 VIEW) INDICATION: Bronchitis. History of asthma and tobacco use. TECHNIQUE: Two views of the chest COMPARISON: 01/24/2018 FINDINGS: The lung volumes are normal. No focal consolidation is seen. No large pleural effusion or pneumothorax is seen. The cardiomediastinal silhouette is normal in size and contour. No acute osseous abnormality is seen. IMPRESSION: No acute pulmonary abnormality seen. Dictated by: Dictated on workstation # [id number] Dict: 03/31/18 1142 Trans: 03/31/18 1155 Interpreted by: STANISLAV HENRIQUEZ MD Electronically signed by: STANISLAV HENRIQUEZ MD 03/31/18 1156 Departure Impression Primary Impression: Acute exacerbation of chronic bronchitis Additional Impression: Nausea and vomiting Qualified Codes: R11.2 - Nausea with vomiting, unspecified Disposition: HOME, SELF-CARE Condition: Improved Departure-Patient Inst. Decision time for Depature: 13:08 Referrals: [facility] (PCP) Primary Care Physician NO,LOCAL PHYSICIAN (Family) Primary Care Physician Patient Instructions: Acute Bronchitis, Adult (DC) Add. Discharge Instructions: Complete your antibiotics as prescribed. You may use nebulizer treatments at home up to every 4 hours if needed. You may take the additional prednisone as prescribed to help with bronchitis symptoms. Use the nicotine patches as prescribed but do not smoke while you have nicotine patches on. Follow-up with Dr. Benitez tomorrow. Call this afternoon for an appointment. Return to care if symptoms are worsening. Drink plenty of clear liquids. Monitor your blood sugars closely and adjust insulin doses if necessary to control high blood sugars. Use Zofran (ondansetron) as prescribed for nausea and vomiting. All discharge instructions reviewed with patient and/or family. Voiced understanding. Scripts Prednisone (Prednisone) 20 Mg Tab 20 MG PO DAILY, #3 TAB Prov: BUSHRA WHITEHEAD MD 03/31/18 Ondansetron (Zofran Odt) 4 Mg Tab.rapdis 4 MG SL Q4H PRN for NAUSEA/VOMITING-1ST LINE, #10 TAB Prov: BUSHRA WHITEHEAD MD 03/31/18 Nicotine (Nicotine Patch) 1 Each Patch.dysq 14 MG TD DAILY, #30 PATCH Prov: BUSHRA WHITEHEAD MD 03/31/18 BUSHRA WHITEHEAD MD March 31, 2018 13:07
[2018-03-31] MEDS ORDERED: PRD20T PO (13:11)
[2018-03-31] MEDS ORDERED: ONDA4TAB8 SL (13:11)
[2018-03-31] MEDS ORDERED: NICO-533 TD (13:11)
[2018-03-31 13:24] VITALS: BP 123/73
== END 2018-03-31 13:24 | disposition home or self-care (01) ==
LOC: EDUNIT# 10:47 → ER 10:49
DX: J44.0 Chronic obstructive pulmonary disease with (acute) lower respiratory infection (principal); J20.9 Acute bronchitis, unspecified; R11.2 Nausea with vomiting, unspecified; E78.00 Pure hypercholesterolemia, unspecified; I10 Essential (primary) hypertension; E03.9 Hypothyroidism, unspecified; F41.9 Anxiety disorder, unspecified; F31.9 Bipolar disorder, unspecified; K21.9 Gastro-esophageal reflux disease without esophagitis; E11.9 Type 2 diabetes mellitus 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s; F17.210 Nicotine dependence, cigarettes, uncomplicated; Z82.49 Family history of ischemic heart disease and other diseases of the circulatory system; Z87.19 Personal history of other diseases of the digestive system; Z90.49 Acquired absence of other specified parts of digestive tract; Z90.89 Acquired absence of other organs; Z90.710 Acquired absence of both cervix and uterus; Z91.041 Radiographic dye allergy status; Z88.0 Allergy status to penicillin; Z79.51 Long term (current) use of inhaled steroids; Z79.82 Long term (current) use of aspirin; Z79.4 Long term (current) use of insulin; Z79.52 Long term (current) use of systemic steroids
CPT/HCPCS: 36415; 71046; 80053; 83735; 85025; 96374

== ENCOUNTER → 2018-06-21 | Outpatient (CLI) | payer MEDICAID ==
[~2018-06-21] MED LIST changes: -CYPR4TAB; +CYPR4TAB41; +DOXY100C2; +NICO-533 TD; +ONDA4TAB8 SL; +PRD20T PO
--- NOTE | 2018-06-21 09:10 | Diagnostic Imaging Report ---
PROCEDURE: CT chest without contrast. TECHNIQUE: Multiple contiguous axial images were obtained through the chest without the use of intravenous contrast. INDICATION: Three-month followup due to abnormal density noted on prior CT. COMPARISON: Comparison is made with prior CT from 03/08/2018. FINDINGS: No axillary lymphadenopathy is seen. No definite hilar or mediastinal lymphadenopathy is detected. No pericardial or pleural fluid is identified. Parenchymal evaluation does show some minimal atelectasis in the right middle lobe. The area of slight nodular increased density in the lingula has significantly improved. Only minimal residual linear density at this location is seen consistent with minimal scarring or atelectasis. No mass is identified. Remainder of the lung baer are clear. The upper abdomen is unremarkable. IMPRESSION: Improved appearance of the chest since study three months earlier. The area of nodular density in the lingula shows significant improved aeration with only minimal residual atelectasis or scarring present. Dictated by: Dictated on workstation # [id number]
== END ==
LOC: RAD 07:43
PROVIDERS: ATTEND Nurse Practitioner Family
DX: R91.8 Other nonspecific abnormal finding of lung field (principal)
CPT/HCPCS: 71250

== ENCOUNTER → 2018-07-01 | Outpatient (CLI) | payer MEDICAID | END | disposition home or self-care (01) | LOC: PREOP 07:30 | PROVIDERS: ATTEND Internal Medicine Critical Care Medicine | DX: Z01.818 Encounter for other preprocedural examination (principal) ==

== ENCOUNTER → 2019-01-14 | Outpatient (CLI) | payer MEDICAID ==
[~2019-01-14] MED LIST changes: +METR-145 PO; -METR500T21 PO
--- NOTE | 2019-01-14 16:57 | Diagnostic Imaging Report ---
PROCEDURE: CT chest without contrast. TECHNIQUE: Multiple contiguous axial images were obtained through the chest without the use of intravenous contrast. INDICATION: Lung cancer. FINDINGS: The previous exam of 06/21/2018 noted a vague nodular density in the lingula. On this study, that area does seem more conspicuous. There is now a 9 x 16 mm oval nodule in this area. This finding is worrisome for neoplasm. If further evaluation is desired, then PET/CT would be recommended. The overall appearance of the lungs has not changed significantly otherwise. There is still a patchy area of fibrosis/scar formation in the anterior aspect of the right middle lobe. There is no other parenchymal lung mass visualized. There is no sign of failure, pneumonia, or of a pleural effusion to indicate an acute abnormality. The heart is stable in size. The aorta is not abnormally dilated. There is no obvious mediastinal or hilar adenopathy. The thyroid gland where visualized is unremarkable. There is no obvious breast mass. According to our records, the patient has not had a mammogram. If the patient has had a recent (within the last year) mammogram elsewhere, then no further imaging would be necessary. If the patient has not had a recent mammogram, then mammography would be recommended for further study. The sections through the upper abdomen fail to show any sign of an acute abnormality. The bone windows are unremarkable for a fracture or for a destructive lesion. IMPRESSION: 1. In the interval since the prior study, a 9 x 16 mm nodular density has developed in the lingula. This finding is worrisome for neoplasm. Recommendations as above. 2. The overall appearance of the chest is otherwise stable. There is no acute abnormality identified. 3. There is no obvious breast mass. Recommendations as above. Dictated by: Dictated on workstation # [id number]
== END ==
LOC: RAD 13:40
PROVIDERS: ATTEND Nurse Practitioner Family
DX: C34.90 Malignant neoplasm of unspecified part of unspecified bronchus or lung (principal); J45.909 Unspecified asthma, uncomplicated; J98.4 Other disorders of lung; G47.10 Hypersomnia, unspecified; Z72.0 Tobacco use
CPT/HCPCS: 71250

== ENCOUNTER → 2019-01-17 | Outpatient (CLI) | payer MEDICAID ==
[~2019-01-17] MED LIST changes: +TIOT18CA2 IH
== END ==
LOC: RT 12:54
PROVIDERS: ATTEND Nurse Practitioner Family
DX: J45.909 Unspecified asthma, uncomplicated (principal); J98.4 Other disorders of lung; R06.00 Dyspnea, unspecified; G47.10 Hypersomnia, unspecified; Z72.0 Tobacco use

== ENCOUNTER 2019-01-19 05:39 | Outpatient (CLI) | payer MEDICAID ==
[~2019-01-19] VITALS: Ht 154.9 cm; Wt 73.0 kg
[~2019-01-19 05:39] MED LIST changes: -TIOT18CA2 IH
[2019-01-19] MEDS ORDERED: TIOT18CA2 IH (14:12)
== END 2019-01-19 14:32 | disposition home or self-care (01) ==
LOC: PREOP 05:39
PROVIDERS: ATTEND Internal Medicine Critical Care Medicine
DX: Z01.818 Encounter for other preprocedural examination (principal)

== ENCOUNTER 2019-01-26 06:58 | Day surgery (SDC) | payer MEDICAID ==
[~2019-01-26] VITALS: Ht 154.9 cm; Wt 73.0 kg
[~2019-01-26 06:58] MED LIST changes: +TIOT18CA2 IH
[2019-01-26] MEDS ORDERED: LIDOCAINE JELLY 2% 6 ML SYRINGE TOP ONE (06:59)
[2019-01-26] MEDS ORDERED: LIDOCAINE PF 2% 5 ML (XYLOCAINE) VIAL INJ ONE (06:59)
[2019-01-26] MEDS ORDERED: LIDOCAINE PF 1% 2 ML VIAL (OR ONLY) IJ ONE (06:59)
[2019-01-26] MEDS ORDERED: SUCCINYLCHOLINE INJ 100 MG/5 ML SYR ONE (07:04)
[2019-01-26] MEDS ORDERED: proPOfol 200 MG/20 ML (DIPRIVAN) VIAL IV ONE (07:04)
[2019-01-26] MEDS ORDERED: fentaNYL INJECTION 100 MCG/2 ML AMP ONE (07:04)
[2019-01-26] MEDS ORDERED: MIDAZOLAM 2 MG/2 ML (VERSED) VIAL ONE (07:04)
[2019-01-26] MEDS ORDERED: ATROPINE INJ 0.4 MG/ML SDV ONE (07:05)
[2019-01-26] MEDS ORDERED: NEOSTIGMINE 1 MG/ML 5 ML SYRINGE ONE (07:05)
[2019-01-26] MEDS ORDERED: LIDOCAINE PF 2% 5 ML (XYLOCAINE) VIAL ONE (07:05)
[2019-01-26] MEDS ORDERED: GLYCOPYRROLATE 0.2 MG/ML (ROBINUL) 2 ML VIAL ONE (07:05)
[2019-01-26] MEDS ORDERED: ROCURONIUM 10 MG/ML 5 ML SYRINGE IV ONE (07:05)
[2019-01-26] MEDS ORDERED: ONDANSETRON 4 MG/2 ML (SDV) Z0FRAN ONE ×2 (07:05→09:35)
--- OUTSIDE RECORDS SUMMARY | 2019-01-26 07:05 | XMS REPORT ---
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 Name Role Phone FRANK LUNA Unavailable PROBLEMS Type Condition ICD9-CM Code [id number] Code Onset Dates Condition Status SNOMED Code Problem Other chronic pain G89.29 Active 05269696 Problem OAB (overactive bladder) N32.81 Active 240225637 Problem Tobacco abuse Z72.0 Active 39672958 Problem Cervicalgia M54.2 Active 61954434 Problem Lumbago M54.5 Active 246189763 Problem Hepatitis C B19.20 Active 05370742 Problem COPD (chronic obstructive pulmonary disease) J44.9 Active 59481552 Problem Diabetes E11.9 Active 72290573 Problem Type 2 diabetes mellitus 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s E11.9 Active 713246948 Problem Stress incontinence of urine N39.3 Active 52963418 Problem Bilateral claudication of lower limb I73.9 Active 741166151 Problem Seasonal allergic rhinitis due to other allergic trigger J30.89 Active 174520678 Problem Hypoglycemia E16.2 Active 606268441 Problem Hypertension, unspecified type I10 Active 17590773 Problem Bipolar affective disorder, currently depressed, mild F31.31 Active 172613168 Problem Hyperlipidemia, unspecified hyperlipidemia type E78.5 Active 20205195 Problem Fallen bladder N81.10 Active 461379872 Problem Chronic tension-type headache, not intractable G44.229 Active 844278185 Problem custodial 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 Active 871662484 Problem Type 2 diabetes mellitus with hyperglycemia E11.65 Active 882311641 Problem Bipolar 2 disorder F31.81 Active 73157866 Problem Chronic post-traumatic stress disorder (PTSD) F43.12 Active 919665540 Problem History of hypothyroidism Z86.39 Active 037322378 Problem Stress incontinence N39.3 Active 78215944 Problem El's esophageal ulceration K22.10 Active 871820859 Problem 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 mellitus 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, without long -term 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 E11.9 Active 834579894 Problem Irritable bowel syndrome with diarrhea K58.0 Active 321362900 Problem Panic disorder with agoraphobia F40.01 Active 18027433 Problem Type 2 diabetes mellitus with hyperglycemia E11.65 Active 666679423 Problem Epilepsy G40.909 Active 94623104 Problem Hypertension, benign I10 Active 23933134 Problem History of CT (myocardial infarction) I25.2 Active 434996086 Problem Mood disorder F39 Active 10729547 Problem History of hypertension Z86.79 Active 180210960 Problem Uncontrolled type 2 diabetes mellitus 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, without long-term 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 E11.65 Active 421483416 Problem History of high cholesterol Z86.39 Active 657810805 Problem Bipolar I disorder with mood-congruent psychotic features F31.9 Active 280915464 Problem History of seizures Z87.898 Active 001570242 Problem Bipolar I disorder with duy F31.10 Active 34675838 Problem Primary insomnia F51.01 Active 5976594 Problem Gastritis and duodenitis K29.90 Active 761676877 ALLERGIES No Information ENCOUNTERS Encounter Location Date Diagnosis [facility] [place] [id number] [place] [address] 39455- 4838 17 Nov, 2018 [facility] [place] [id number] [place] [address] 39875- 0749 30 Sep, 2018 [facility] [place] [id number] [place] [address] 65821- 5014 26 Sep, 2018 [facility] [place] [id number] [place] [address] 25231- 9957 16 Sep, 2018 [facility] [place] [id number] [place] [address] 34519- 5181 Sep, Type 2 diabetes mellitus 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s E11.9 [facility] [place] [id number] [place] [address] 85141- 3977 16 Sep, 2018 Type 2 diabetes mellitus 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s E11.9 [facility] [place] [address] [address] 9151 Aug, Type 2 diabetes mellitus 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s E11.9 [facility] [place] [address] [address] 2767 30 Aug, 2018 [facility] [place] [id number] [place] [address] 99325- 7675 18 Aug, 2018 Type 2 diabetes mellitus 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s E11.9 [facility] [place] [id number] [place] [address] 03916- 2962 Aug, [facility] [place] [id number] [place] [address] 80652- 4567 Aug, [facility] [place] [id number] [place] [address] 09811- 5992 Aug, Bipolar 2 disorder F31.81 ; Chronic post-traumatic stress disorder (PTSD) F43.12 and Panic disorder with agoraphobia F40.01 [facility] [place] [id number] [place] [address] 96320- 0766 Aug, [facility] [place] [id number] [place] [address] 59839- 0405 Jul, [facility] [place] [id number] [place] [address] 40024- 8221 Jul, Type 2 diabetes mellitus 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s E11.9 ; Fallen bladder N81.10 ; Stress incontinence of urine N39.3 ; Gall bladder disease K82.9 ; Periodontal abscess K05.219 ; Diarrhea, unspecified R19.7 ; Nausea with vomiting, unspecified R11.2 and Chronic tension-type headache, not intractable G44.229 [facility] [place] [id number] [place] [address] 24889- 0460 Jul, [facility] [place] [id number] [place] [address] 22267- 3426 24 Jul, 2018 [facility] [place] [address] [place] [address] 05250- 8108 17 Jul, 2018 [facility] [place] [id number] [place] [address] 33644- 0777 Jul, Bipolar 2 disorder F31.81 ; Panic disorder with agoraphobia F40.01 and Chronic post-traumatic stress disorder (PTSD) F43.12 [facility] [place] [id number] [place] [address] 16483- 0046 Jun, [facility] [place] [id number] [place] [address] 00400- 2475 Jun, [facility] [place] [id number] [place] [address] 90042- 6889 Jun, Lumbago M54.5 [facility] [place] [id number] [place] [address] 09334- 1598 Jun, Type 2 diabetes mellitus with hyperglycemia E11.65 [facility] [place] [id number] [place] [address] 96361- 8556 Jun, [facility] [place] [id number] [place] [address] 66849- 0938 Jun, Type 2 diabetes mellitus with hyperglycemia E11.65 ; El 's esophageal ulceration K22.10 and Lumbago M54.5 [facility] [place] [id number] [place] [address] 73832- 2509 Jun, Type 2 diabetes mellitus with hyperglycemia E11.65 [facility] [place] [id number] [place] [address] 63482- 9781 Jun, [facility] [place] [id number] [place] [address] 49491- 9863 Jun, [facility] [place] [id number] [place] [address] 83573- 7227 Jun, Bipolar affective disorder, currently depressed, mild F31.31 ; Chronic post-traumatic stress disorder (PTSD) F43.12 and Panic disorder with agoraphobia F40.01 [facility] [place] [address] [address]- 7230 Jun, [facility] [place] [id number] [place] [address] 21654- 2131 Jun, [facility] [place] [address] [facility] [id number] [place] [address]- 6106 Jun, Type 2 diabetes mellitus with hyperglycemia E11.65 [facility] [place] [address] [facility] [id number] [place] 4582 Jun, Uncontrolled type 2 diabetes mellitus with hyperglycemia E11.65 [facility] [place] [address] [facility] [id number] [place] [address]- 1833 Jun, [facility] [place] [address] [facility] [id number] [place] [address]- 4700 May, Lumbago M54.5 [facility] [address] [facility] [id number] [place] [id number] May, [facility] [place] [id number] [place] [address]- 7139 May, [facility] [place] [address], [place] [address]- 7592 May, [facility] [place] [id number] [place] [address]- 4953 May, [facility] [place] [address], [place] [address]- 9529 May, [facility] [place] [id number] [address]- 2855 May, [facility] [place] [address], [place] [address]- 4876 May, [facility] [place] [address] [facility] [id number], [place] [address]- 0485 May, Lumbago M54.5 [facility] [place] [address] [facility] [id number], [place] [address]- 6217 May, [facility] [place] [id number], [place] [address]- [address], [address] of the chest R93.8 [facility] [id number] [place] [address] 13274- 0531 Apr, Bipolar 2 disorder F31.81 ; Chronic post-traumatic stress disorder (PTSD) F43.12 and Panic disorder with agoraphobia F40.01 [place] [id number] [place] [address] 28771- [address] Apr, [address] of the chest R93.8 [place] [address] [address]54- [address], [address] of the chest R93.8 [place] [address] 24343- 5248 Apr, [place] [address] 29972- 5200 Apr, Type 2 diabetes mellitus with hyperglycemia E11.65 [facility] [address] 78519- 5952 Apr, 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 mellitus 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, without long-term 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 E11.9 ; Watery eyes H04.203 ; Low back pain M54.5 ; Other chronic pain G89.29 ; Chronic tension-type headache, not intractable G44.229 ; Uncontrolled type 2 diabetes mellitus 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 , without long-term 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 E11.65 and Bronchitis J40 [facility] [place] [id number] [place] [address] 31577- 2524 Apr, [facility] [place] [id number] [place] [address] 35556- 7104 Apr, Lumbago M54.5 [facility] [id number] [place] [address] 36875- 1522 March, [facility] [id number] [place] [address] 03167 -8312 March, Cough R05 ; Pneumonia due to infectious organism, unspecified laterality, unspecified part of lung J18.9 and Non-intractable vomiting with nausea, unspecified vomiting type R11.2 [facility] [place] [id number] [place] [address] 87145- 5914 March, Bronchitis J40 [facility] [place] [id number] [place] [address] 46103- 5567 March, [facility] [place] [id number] [place] [address] 21932- 2123 March, El's esophageal ulceration K22.10 and Type 2 diabetes mellitus with hyperglycemia E11.65 [facility] [place] [id number] [place] [address] 66166- 3433 March, Panic disorder with agoraphobia F40.01 ; Chronic post- traumatic stress disorder (PTSD) F43.12 and Bipolar 2 disorder F31.81 [facility] [place] [id number] [place] [address] 52267- 1473 March, Type 2 diabetes mellitus with hyperglycemia E11.65 [facility] [place] [address] 90180- 3963 March, [facility] [place] [id number] [place] [address] 57603- 9090 March, Lumbago M54.5 [place] [id number] [place] [address] 90220- 3653 March, [facility] [place] [id number] [place] [address] 51568- 3320 March, Irritable bowel syndrome with diarrhea K58.0 ; Primary insomnia F51.01 ; Type 2 diabetes mellitus with hyperglycemia E11.65 and 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 [place] [place] [id number] [place] [address] 41138- 4649 March, [facility] [place] [id number] [place] [address] 68221- 3695 Jan, [facility] [place] [id number] [place] [address] 17219- 5207 Jan, [facility] [id number] [place] [address] 33171- 1348 Jan, [facility] [place] [id number] [place] [address] 44041- 7902 Jan, [facility] [place] [id number] [place] [address] 01783- 3517 Jan, Dizziness R42 [place] [address] 38417- 6581 Jan, Bipolar affective disorder, currently depressed, mild F31.31 ; Panic disorder with agoraphobia F40.01 and Chronic post-traumatic stress disorder (PTSD) F43.12 [facility] [id number] [place] [address] 66705- 0613 Jan, Dizziness R42 [place] [id number] [place] [address] 39283- 9114 Jan, Chest pain, unspecified type R07.9 ; Exertional dyspnea R06.09 ; Hypertension, unspecified type I10 and Hyperlipidemia, unspecified hyperlipidemia type E78.5 [place] [id number] [place] [address] 40874- 8032 Jan, [place] [id number] [place] [address] 08962- 8085 Jan, Lumbago M54.5 [facility] [place] [id number] [place] [address] 57563- 6264 Jan, El's esophageal ulceration K22.10 ; Blister (nonthermal ) of oral cavity, initial encounter S00.522A ; Local infection of the skin and subcutaneous tissue, unspecified L08.9 ; Type 2 diabetes mellitus with hyperglycemia E11.65 ; 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 and Stress incontinence N39.3 [facility] [id number] [place] [address] 97652- 3916 Dec, [facility] [place] [id number] [place] [address] 68642- 7770 27 Dec, 2017 [facility] [place] [address], [place] [address]- 2752 19 Dec, 2017 [facility] [address] [id number] 16 Dec, 2017 Dental examination Z01.20 [facility] [place] [id number] [place] [address] 50026- 0728 15 Dec, 2017 Acute pain of right knee M25.561 [facility] [place] [id number] [place] [address] 24595- 0954 14 Dec, 2017 [facility] [place] [id number] [place] [address] 38233- 6293 14 Dec, 2017 [facility] [place] [id number] [place] [address] 51711- 5337 14 Dec, 2017 Lumbago M54.5 ; Acute pain of right knee M25.561 and Seasonal allergic rhinitis due to other allergic trigger J30.89 [facility] [place] [address] [place] [address] 69513- 7675 12 Dec, 2017 Type 2 diabetes mellitus with hyperglycemia E11.65 [facility] [place] [id number] [place] [address] 32348- 6253 08 Dec, 2017 [facility] [place] [id number] [address]- 7735 08 Dec, 2017 [facility] [place] [address], [place] [address]- 4691 23 Dec, 2017 [facility] [place] [address] [place] [address] 22584- 3981 Dec, [facility] [place] [id number] [place] [address] 95462- 1066 15 Dec, 2017 Chronic post-traumatic stress disorder (PTSD) F43.12 and Panic disorder with agoraphobia F40.01 [facility] [place] [id number] [place] [address] 88591- 5116 13 Dec, 2017 Low back pain M54.5 [facility] [place] [id number] [place] [address] 74425- 9521 12 Dec, 2017 Type 2 diabetes mellitus with hyperglycemia E11.65 ; custodial 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 ; Low back pain M54.5 ; Other chronic pain G89.29 and Encounter for therapeutic drug level monitoring Z51.81 [facility] [place] [id number] [place] [address] 57163- 8603 09 Dec, 2017 Coughing R05 [facility] [place] [id number] [place] [address] 14881- 9888 Dec, [facility] [id number] [place] [address] [id number] 07 Dec, 2017 Dental examination Z01.20 [facility] [id number] [place] [address] 98065- 1294 Nov, Type 2 diabetes mellitus 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s E11.9 and Encounter for therapeutic drug level monitoring Z51.81 [facility] [id number] [place] [address] 65467- 1763 Nov, [facility] [place] [id number] [place] [address] 77776- 1817 Oct, Type 2 diabetes mellitus 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s E11.9 [facility] [id number] [place] [address] 48042- 4044 Oct, Type 2 diabetes mellitus with hyperglycemia E11.65 [facility] [id number] [place] [address] 05968- 7217 Aug, Type 2 diabetes mellitus 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s E11.9 [facility] [id number] [place] [address] 91448- 9170 Aug, Type 2 diabetes mellitus 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s E11.9 ; Hypoglycemia E16.2 ; Lumbago M54.5 ; Stress incontinence of urine N39.[address] (myocardial infarction) I25.2 [place] [id number] [place] [address] 93817- 0541 Jun, [facility] [place] [address], [place] [address]- 6753 May, [facility] [place] [address] 2587 Apr, Panic disorder with agoraphobia F40.01 [facility] [place] [address] [place] [address] 68850- 4868 Apr, Panic disorder with agoraphobia F40.01 [facility] [place] [address], [place] [address]- 5775 Apr, [facility] [place] [id number] [place] [address] 96418- 3169 March, Other chronic pain G89.29 [facility] [place] [id number] [address]- 5651 March, [facility] [place] [address] [place] [address] 36477- 0771 March, [facility] [place] [address], [place] [address]- 2405 March, [facility] [place] [address], [place] [address]- 2258 March, [facility] [place] [address], [place] [address]- 6544 March, Type 2 diabetes mellitus 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s E11.9 [facility] [place] [address], [place] [address]- 9648 March, Diarrhea, unspecified type R19.7 [facility] [place] [address] [place] [address] 49768- 7700 March, Bipolar 2 disorder F31.81 ; Chronic post-traumatic stress disorder (PTSD) F43.12 and Type 2 diabetes mellitus with hyperglycemia E11.65 [facility], [place] [id number], [place] [address] March, [facility] [place] [id number] [place] [address] March, [facility], [place], [facility] [id number] [place] [address] March, Hypertension, benign I10 ; Type 2 diabetes mellitus with hyperglycemia E11.65 ; Hepatitis C B19.20 ; Gastritis and duodenitis K29.90 and Dysuria R30.0 [facility], [place], [facility] [id number] [place] [address] March, Hypertension, benign I10 ; Type 2 diabetes mellitus with hyperglycemia E11.65 ; Hepatitis C B19.20 ; Gastritis and duodenitis K29.90 and Dysuria R30.0 [facility] [facility] [place] [id number] [place] [address] 14540- 5240 March, Panic disorder with agoraphobia F40.01 ; Chronic post- traumatic stress disorder (PTSD) F43.12 ; Epilepsy G40.909 and Bipolar I disorder with mood-congruent psychotic features F31.9 [facility] [id number] [place] [address] 37020- 6706 March, [facility] [place] [id number] [place] [address] 17511- 3181 March, Type 2 diabetes mellitus with hyperglycemia E11.65 [facility] [id number] [place] [address] 78701- 9113 Jan, Bipolar I disorder with duy F31.10 [facility] [place] [id number] [place] [address] 87661- 1963 Jan, Bipolar 2 disorder F31.81 ; Chronic post-traumatic stress disorder (PTSD) F43.12 and Type 2 diabetes mellitus with hyperglycemia E11.65 [facility] [place] [id number] [place] [address] 38029- 1657 Jan, [facility] [place] [id number] [place] [address] 84344- 7285 Jan, [facility] [place] [id number] [place] [address] 50915- 6879 14 Jan, 2017 Panic disorder with agoraphobia F40.01 [facility] [place] [id number] [place] [address] 42440- 9979 13 Jan, 2017 Panic disorder with agoraphobia F40.01 ; Bipolar I disorder with mood-congruent psychotic features F31.9 ; Chronic post-traumatic stress disorder (PTSD) F43.12 and Epilepsy G40.909 [facility] [place] [id number] [place] [address] 06123- 0257 Jan, [facility] [place] [id number] [place] [address] 26207- 1489 Jan, [facility] [id number] [place] [address] 26209- 2658 Jan, Type 2 diabetes mellitus 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s E11.9 and Hypoglycemia E16.2 [facility] [id number] [place] [address] 99419- 5421 Jan, Type 2 diabetes mellitus 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s E11.9 ; Primary insomnia F51.01 and Hypertension, benign I10 [facility] [place] [id number] [place] [address] 22732- 5044 Jan, [facility] [id number] [place] [address] [id number] Jan, [facility] [place] [id number] [place] [address] 71594- 3921 Dec, Type 2 diabetes mellitus with hyperglycemia E11.65 [facility] [place] [id number] [place] [address] 11200- 8245 Dec, [facility] [place] [id number] [place] [address] 83466- 0109 Dec, Bipolar 2 disorder F31.81 ; Panic disorder with agoraphobia F40.01 ; Chronic post-traumatic stress disorder (PTSD) F43.12 and Epilepsy G40.909 [facility] [place] [id number] [place] [address] 33261- 7095 Dec, [facility] [place] [id number] [place] [address] 79381- 5669 Dec, [facility] [place] [id number] [place] [address] 28709- 1840 Dec, Bipolar 2 disorder F31.81 ; Panic disorder with agoraphobia F40.01 ; Chronic post-traumatic stress disorder (PTSD) F43.12 and Epilepsy G40.909 [facility] [place] [id number] [place] [address] 89180- 5897 Dec, [facility] [place] [id number] [place] [address] 90398- 1840 Dec, [facility] [id number] [place] [address] 99067- 7231 Dec, [facility] [id number] [place] [address] 39584- 9414 Dec, Type 2 diabetes mellitus with hyperglycemia E11.65 ; custodial 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 and Lumbago M54.5 [facility] [id number] [place] [address] 57014- 3061 Dec, [facility] [place] [id number] [place] [address] 48471- 7481 Dec, [facility] [place] [id number] [place] [address] 97853- 5800 Dec, [facility] [id number] [place] [address] 40683 -9090 Dec, Pain of left leg M79.605 and Pain in right leg M79.604 [facility] [place] [id number] [place] [address] 97360- 6871 Dec, [facility] [place] [id number] [place] [address] 86384- 1604 Dec, Type 2 diabetes mellitus with hyperglycemia E11.65 [facility] [id number] [place] [address] 30506- 9668 Dec, [facility] [id number] [place] [address] 17683- 3844 Dec, Type 2 diabetes mellitus with hyperglycemia E11.65 ; custodial 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 ; Vagina, candidiasis B37.3 and Other chronic pain G89.29 [facility] [place] [address] 51520- 1904 Nov, Panic disorder with agoraphobia F40.01 [place] [address] 50362- 0449 Nov, [facility] [address] 34188- 2921 Nov, [facility] [address] 02710- 7354 Nov, Hypoglycemia E16.2 [facility] [address] 55475- 4417 Nov, [facility] [id number] [place] [address] 36629- 7499 Nov, [facility] [id number] [place] [address] 61738- 1677 Nov, [facility] [id number] [place] [address] 94682- 0299 Nov, Type 2 diabetes mellitus with hyperglycemia E11.65 and custodial 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 [facility] [id number] [place] [address] 28453- 1930 Nov, Panic disorder with agoraphobia F40.01 ; Bipolar 2 disorder F31.81 ; Chronic post-traumatic stress disorder (PTSD) F43.12 and Epilepsy G40.909 [facility] [id number] [place] [address] 36635- 5899 Nov, Panic disorder with agoraphobia F40.01 [facility] [place] [id number] [place] [address] 09726- 7703 16 Oct, 2016 [facility] [place] [id number] [place] [address] 47433- 2721 Oct, [facility] [place] [id number] [place] [address] 00602- 0217 Oct, Bipolar 2 disorder F31.81 ; Panic disorder with agoraphobia F40.01 and Mood disorder F39 [facility] [place] [id number] [place] [address] 85418- 6779 Oct, Diabetes E11.9 ; Type 2 diabetes mellitus with hyperglycemia E11.65 and 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 [facility] [place] [id number] [place] [address] 51264- 4948 Oct, [facility] [place] [id number] [place] [address] 62435- 3224 Sep, [facility] [place] [id number] [place] [address] 95852- 1674 Sep, Bipolar 2 disorder F31.81 and Mood disorder F39 [facility] [place] [id number] [place] [address] 97064- 9328 Sep, [facility] [place] [id number] [place] [address] 66050- 4922 Sep, Uncontrolled type 2 diabetes mellitus 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, without long-term 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 E11.65 [facility] [place] [id number] [place] [address] 51149- 3043 Sep, [facility] [place] [id number] [place] [address] 96234- 1828 Sep, [facility] [place] [id number] [place] [address] 37967- 9188 Sep, [facility] [place] [id number] [place] [address] 30664- 2723 Sep, [facility] [place] [id number] [place] [address] 97401- 4538 Sep, Bipolar 2 disorder F31.81 ; Chronic post-traumatic stress disorder (PTSD) F43.12 ; Panic disorder with agoraphobia F40.01 and Epilepsy G40.909 [facility] [place] [id number] [place] [address] 01589- 6198 11 Sep, 2016 Bipolar 2 disorder F31.81 ; PTSD (post-traumatic stress disorder) F43.10 and Panic disorder with agoraphobia F40.01 [facility] [place] [id number] [place] [address] 09530- 6687 Sep, [facility] [place] [id number] [place] [address] 74991- 5988 28 Aug, 2016 History of seizures Z87.898 ; Panic disorder with agoraphobia F40.01 and Bipolar 2 disorder F31.81 [facility] [place] [id number] [place] [address] 33625- 9060 Aug, [facility] [place] [id number] [place] [address] 46319- 9221 17 Aug, 2016 [facility] [place] [id number] [place] [address] 17664- 4249 Aug, [facility] [place] [id number] [place] [address] 18887- 9448 Aug, [facility] [place] [id number] [place] [address] 94742- 0638 Aug, [facility] [place] [id number] [place] [address] 38829- 1645 Aug, [facility] [place] [id number] [place] [address] 77630- 4751 Aug, Hypoglycemia E16.2 and Bilateral impacted cerumen H61.23 [facility] [place] [id number] [place] [address] 70408- 5953 Aug, [facility] [place] [address] [address]- 0883 Jul, [facility] [place] [id number] [place] [address] 11078- 4708 Jul, [facility] [place] [id number] [place] [address] 57911- 7408 Jul, Bipolar 2 disorder F31.81 ; Panic disorder with agoraphobia F40.01 ; PTSD (post-traumatic stress disorder) F43.10 and Epilepsy G40.909 [facility] [place] [id number] [place] [address] 33888- 3695 Jul, [facility] [place] [id number] [place] [address] 43156- 7814 Jul, Type 2 diabetes mellitus 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s E11.9 and Coughing R05 [facility] [place] [id number] [place] [address] 45456- 6401 Jul, [facility] [place] [id number] [place] [address] 21067- 6858 Jun, [facility] [place] [id number] [place] [address] 75388- 3574 Jun, Bipolar 2 disorder F31.81 ; PTSD (post-traumatic stress disorder) F43.10 and Panic disorder with agoraphobia F40.01 [facility] [place] [id number] [place] [address] 99952- 3409 Jun, [facility] [place] [address] [address]- 5970 Jun, [facility] [place] [id number] [place] [address] 31105- 6760 Jun, [facility] [place] [id number] [place] [address] 75248- 3209 Jun, Type 2 diabetes mellitus 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s E11.9 and COPD (chronic obstructive pulmonary disease) J44.9 [facility] [id number] [id number] May, Dental examination Z01.20 and Dental caries K02.9 [place] [id number] [place] [address] 46537- 4587 May, Bipolar 2 disorder F31.81 ; PTSD (post-traumatic stress disorder) F43.10 and Panic disorder with agoraphobia F40.01 [place] [id number] [place] [address] 69594- 3170 May, Lumbago with sciatica, right side M54.41 ; Other chronic pain G89.29 and Uncontrolled type 2 diabetes mellitus 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, without long-term 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 E11.65 [id number] [place] [address] 48330- 1279 May, Chronic bronchitis, unspecified chronic bronchitis type J42 [address] [id number] [place] [address] 46037- 2273 May, [facility] [id number] [place] [address] 51681- 0899 May, [address] [id number] [place] [address] 96045- 5959 May, Chest pain, unspecified type R07.9 ; Tobacco use Z72.0 ; Type 2 diabetes mellitus 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s E11.9 ; Essential hypertension I10 ; Hyperlipidemia, unspecified hyperlipidemia type E78.5 ; Obesity (BMI 30- 39.9) E66.9 ; History of hypothyroidism Z86.39 ; Chronic obstructive pulmonary disease, unspecified COPD type J44.9 ; Anxiety F41.9 ; Bilateral claudication of lower limb I73.9 and Bipolar 2 disorder F31.81 [id number] [place] [address] 82794- 4732 May, Bipolar 2 disorder F31.81 ; Panic disorder with agoraphobia F40.01 and Tobacco abuse Z72.0 [id number] [place] [address] 35753- 9967 Apr, [facility] [place] [id number] [place] [address] 40708- 7563 Apr, [facility] [place] [id number] [place] [address] 61498- 0930 Apr, [facility] [place] [id number] [place] [address] 25050- 9697 Apr, Bipolar 2 disorder F31.81 ; Panic disorder with agoraphobia F40.01 and PTSD (post-traumatic stress disorder) F43.10 [facility] [place] [id number] [place] [address] 70668- 3827 Apr, Chronic bronchitis, unspecified chronic bronchitis type J42 ; Cervical neuritis M54.12 and Thoracic neuritis M54.14 [facility] [id number] [place] [address] 01948- 6316 Apr, [facility] [place] [id number] [place] [address] 58286- 6402 Apr, Cervicalgia M54.2 [place] [id number] [place] [address] 33315- 2408 Apr, Bipolar 2 disorder F31.81 ; Panic disorder with agoraphobia F40.01 and PTSD (post-traumatic stress disorder) F43.10 [facility] [id number] [place] [address] 58607 -9344 Apr, [facility] [id number] [place] [address] 36702 -7435 09 Apr, 2016 Cough R05 and Tobacco dependence F17.200 [facility] [place] [id number] [place] [address] 63840- 4859 Apr, [facility] [place] [id number] [place] [address] 29553- 3423 Apr, [facility] [place] [id number] [place] [address] 34735- 2303 March, Bipolar 2 disorder F31.81 ; Panic disorder with agoraphobia F40.01 and Generalized anxiety disorder F41.1 [place] [id number] [place] [address] 02569- 8409 March, Closed displaced fracture of fifth metatarsal bone of right foot with routine healing, subsequent encounter S92.351D [place] [facility] [id number] [place] [address] 95961- 0910 March, Bronchitis J40 [facility] [id number] [place] [address] 09509- 5901 March, [place] [address] 94217- 3359 March, [place] [facility] [id number] [place] [address] 92564- 7420 March, Foot pain, right M79.671 ; Cervicalgia M54.2 and 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 mellitus 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, 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 insulin use 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 E11.9 [place] [id number] [place] [address] 72258- 3346 March, Fracture of fifth metatarsal bone of right foot S92.351A [place] [id number] [place] [address] 03651- 0987 March, [facility] [id number] [place] [address] 68345- 0627 Jan, Fracture of fifth metatarsal bone of right foot S92.351A [place] [id number] [place] [address] 08678- 8222 Jan, Bipolar 2 disorder F31.81 ; PTSD (post-traumatic stress disorder) F43.10 ; Panic disorder with agoraphobia F40.01 and Epilepsy G40.909 [place] [id number] [place] [address] 56397- 3790 Jan, History of CT (myocardial infarction) I25.2 and History of high cholesterol Z86.39 [facility] [id number] [place] [address] 79529- 1709 18 Feb, 2016 Bipolar 2 disorder F31.81 ; Panic disorder with agoraphobia F40.01 ; Tobacco abuse Z72.0 and PTSD (post-traumatic stress disorder) F43.10 [place] [id number] [place] [address] 48957- 2926 12 Feb, 2016 Fracture of fifth metatarsal bone of right foot S92.351A [place] [address] 14291- 6699 Jan, [place] [address] 07273- 4089 07 Feb, 2016 History of high cholesterol Z86.39 [place] [address] 61978- 6648 04 Feb, [address] (myocardial infarction) I25.2 [place] [id number] [place] [address] 77533- 7577 Jan, [place] [facility] [id number] [place] [address] 67631- 7362 31 Jan, 2016 Back pain M54.9 ; Diabetes E11.9 ; Right knee pain M25.561 and Chest pain R07.9 [place] [id number] [place] [address] 24558- 5622 Dec, [place] [address] 98041- 2849 24 Jan, 2016 [place] [id number] [place] [address] 42242- 1830 Dec, Cervicalgia M54.2 [place] [address] 76519- 0931 17 Jan, 2016 Bipolar 2 disorder F31.81 ; PTSD (post-traumatic stress disorder) F43.10 ; Panic disorder with agoraphobia F40.01 and Epilepsy G40.909 [place] [id number] [place] [address] 43879- 7641 08 Jan, 2016 Bipolar 2 disorder F31.81 ; PTSD (post-traumatic stress disorder) F43.10 and Panic disorder with agoraphobia F40.01 [facility] [place] [id number] [place] [address] 97094- 3947 Dec, Diabetes E11.9 [facility] [place] [address] 88689- 6612 Dec, [place] [id number] [place] [address] 76223- 0098 Dec, Other chronic pain G89.29 ; Hepatitis C B19.20 and History of seizures Z87.898 [place] [id number] [place] [address] 85742- 4914 24 Dec, 2015 [place] [address] 75262- 3077 Dec, Bipolar 2 disorder F31.81 and Other chronic pain G89.29 [place] [id number] [place] [address] 77874- 2293 Dec, Cervicalgia M54.2 and Diabetes E11.9 [place] [address] [place] [id number] [place] [address] 35679- 3826 Dec, [facility], [place] [id number] [place] [address] 65420- 9961 Dec, [facility] [place] [id number] [place] [address] 63553- 6853 Dec, [place] [address] [place] [id number] [place] [address] 50367- 3036 Dec, [facility], [place], [facility] [address] [id number] [place] [address] 36131- 6809 12 Dec, 2015 Type 2 diabetes mellitus 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s E11.9 [facility], [place], [facility] [id number] [place] [address] 36735- 2645 Dec, [place] [id number] [place] [address] 58105- 1593 Dec, History of seizures Z87.898 and Hepatitis C B19.20 [place] [address] [place] [id number] [place] [address] 57666- 9857 08 Dec, 2015 Hepatitis C B19.20 [place] [address] 89119- 0199 Dec, [place] [address] [place] [id number] [place] [address] 92463- 4670 Dec, Cervicalgia M54.2 ; COPD (chronic obstructive pulmonary disease) J44.9 and Hepatitis C B19.20 [place] [address] [place] [id number] [place] [address] 42844- 1487 Dec, Bipolar 2 disorder F31.81 ; History of hypertension Z86.79 ; History of anxiety Z86.59 ; Panic disorder with agoraphobia F40.01 and Epilepsy G40.909 [place] [address] [place] [id number] [place] [address] 64775- 3582 Nov, [place] [address] [place] [id number] [place] [address] 54772- 2183 Nov, [place] [address] [place] [id number] [place] [address] 44677- 5785 Nov, History of seizures Z87.898 ; OAB (overactive bladder) N32.81 ; Lumbago M54.5 ; Other chronic pain G89.29 ; Cervicalgia M54.2 ; Tobacco abuse Z72.0 ; Tobacco abuse counseling Z71.6 and Impaired fasting glucose R73.01 [place] [id number] [place] [address] 46961- 4746 Nov, Bipolar 2 disorder F31.81 ; PTSD (post-traumatic stress disorder) F43.10 ; History of anxiety Z86.59 ; History of COPD Z87.09 ; Panic disorder with agoraphobia F40.01 and Moderate depressed bipolar I disorder F31.32 [facility] [place] [id number] [place] [address] 63261- 9500 12 Nov, 2015 PTSD (post-traumatic stress disorder) F43.10 [facility] [address] [id number] 11 Nov, 2015 Dental examination Z01.20 and Dental caries K02.9 [place] [id number] [place] [address] 04862- 1805 08 Nov, 2015 History of hypertension Z86.79 ; History of hypothyroidism Z86.39 ; History of high cholesterol Z86.39 ; History of COPD Z87.09 and Overactive bladder N32.81 [place] [address] [place] [id number] [place] [address] 52630- 2843 Nov, Bipolar 2 disorder F31.81 and PTSD (post-traumatic stress disorder) F43.10 [facility] [place] [address] [place] [id number] [place] [address] 38848- 6852 Nov, PTSD (post-traumatic stress disorder) F43.10 ; Panic disorder with agoraphobia F40.01 ; Epilepsy G40.909 and Moderate depressed bipolar I disorder F31.32 [facility] [place] [id number] [place] [address] 99006- 9450 Nov, [id number] [place] [address] 54838- 0448 Nov, [facility] [place] [id number] [place] [address] 83667- 4088 Oct, [place] [id number] [place] [address] 39151- 2348 Oct, Generalized anxiety disorder F41.1 ; Major depression, recurrent F33.9 and PTSD (post-traumatic stress disorder) F43.10 [facility] [place] [id number] [place] [address] 45239- 7846 Oct, Elevated fasting glucose R73.01 [place] [id number] [place] [address] 60380- 2855 Oct, Elevated fasting glucose R73.01 [place] [address] [place] [id number] [place] [address] 20594- 8043 Oct, History of COPD Z87.09 [place] [address] [place] [id number] [place] [address] 41705- 0180 15 Oct, 2015 General medical exam Z00.00 ; History of hypertension Z86.79 ; History of hypothyroidism Z86.39 ; History of hepatitis Z86.19 ; History of high cholesterol Z86.39 and History of seizures Z87.898 [place] [address] [place] [id number] [place] [address] 38847- 1411 Oct, General medical exam Z00.00 ; History of hypertension Z86.79 ; History of hypothyroidism Z86.39 ; Bipolar 2 disorder F31.81 ; PTSD ( post-traumatic stress disorder) F43.10 ; History of hepatitis Z86.19 ; History of high cholesterol Z86.39 ; History of anxiety Z86.59 ; History of seizures Z87.898 ; History of CT (myocardial infarction) I25.2 and History of COPD Z87.09 [place] [address] [place] [address] 39691- 3813 Oct, Generalized anxiety disorder F41.1 ; Depression F32.9 and PTSD (post-traumatic stress disorder) F43.10 [place] [address] [place] [address] 99101- 5109 Jan, [place] [id number] [place] [address] 53952- 5307 Jan, [place] [address] [place] [id number] [place] [address] 71023- 2130 Jun, [facility] [address] [id number] Jun, [place] [id number] [place] [address] 37184- 6495 May, [place] [address] [facility] [id number] [place] [address] May, [facility] [address] [id number] May, [facility] [place] [address] [facility] [id number] [place] [address] May, [facility] [address] [id number] May, [facility] [place] [address] [facility] [id number] [address] May, IMMUNIZATIONS No Known Immunizations SOCIAL HISTORY Never Assessed REASON FOR VISIT medication PLAN OF CARE VITAL SIGNS MEDICATIONS Unknown Medications RESULTS No Results PROCEDURES No Known procedures INSTRUCTIONS MEDICATIONS ADMINISTERED No Known Medications MEDICAL (GENERAL) HISTORY Type Description Date Medical History Hypothyroidism Medical History High cholesterol Medical History Hypertension Medical History Brain seizure Medical History Asthma Medical History COPD Medical History Hep C -[address] x 2 last in 2009 Medical History PTSD (post-traumatic stress disorder) Medical History Colon Cancer 2016 Medical History diabites II Surgical History tonsillectomy 1985 Surgical History partial hysterectomy 2004 Surgical History appendectomy 2004 Hospitalization History Surgery(s) only Hospitalization History pneumonia x3 days Hospitalization History Heart cath with stint 05/15/2016 Hospitalization History Diverticulitis, N/V-[facility] 01/28/17
--- OUTSIDE RECORDS SUMMARY | 2019-01-26 07:06 | XMS REPORT ---
Author Author GERARDO KISER [facility] Address [address] [place] [address] Care Team Providers Care Healthcare Associate Name Role Phone MARGIGERARDO Unavailable PROBLEMS Type Condition ICD9-CM Code [id number] Code Onset Dates Condition Status SNOMED Code Problem Other chronic pain G89.29 Active 67537318 Problem OAB (overactive bladder) N32.81 Active 451394700 Problem Tobacco abuse Z72.0 Active 46772765 Problem Cervicalgia M54.2 Active 02396449 Problem Lumbago M54.5 Active 523487997 Problem Hepatitis C B19.20 Active 85582486 Problem COPD (chronic obstructive pulmonary disease) J44.9 Active 31181938 Problem Diabetes E11.9 Active 24251895 Problem Type 2 diabetes mellitus 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s E11.9 Active 387577549 Problem Stress incontinence of urine N39.3 Active 35092295 Problem Bilateral claudication of lower limb I73.9 Active 778891835 Problem Seasonal allergic rhinitis due to other allergic trigger J30.89 Active 815694742 Problem Hypoglycemia E16.2 Active 202651608 Problem Hypertension, unspecified type I10 Active 41578784 Problem Bipolar affective disorder, currently depressed, mild F31.31 Active 134241902 Problem Hyperlipidemia, unspecified hyperlipidemia type E78.5 Active 13243572 Problem Fallen bladder N81.10 Active 043892880 Problem Chronic tension-type headache, not intractable G44.229 Active 375158746 Problem oil heaterman 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 Active 785868330 Problem Type 2 diabetes mellitus with hyperglycemia E11.65 Active 213606994 Problem Bipolar 2 disorder F31.81 Active 87834667 Problem Chronic post-traumatic stress disorder (PTSD) F43.12 Active 218759772 Problem History of hypothyroidism Z86.39 Active 172299651 Problem Stress incontinence N39.3 Active 80580507 Problem El's esophageal ulceration K22.10 Active 424296199 Problem 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 mellitus 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, without long -term 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 E11.9 Active 592812872 Problem Irritable bowel syndrome with diarrhea K58.0 Active 961559381 Problem Panic disorder with agoraphobia F40.01 Active 07041486 Problem Type 2 diabetes mellitus with hyperglycemia E11.65 Active 522968815 Problem Epilepsy G40.909 Active 36522511 Problem Hypertension, benign I10 Active 35581467 Problem History of IA (myocardial infarction) I25.2 Active 271638195 Problem Mood disorder F39 Active 11070817 Problem History of hypertension Z86.79 Active 376430784 Problem Uncontrolled type 2 diabetes mellitus 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, without long-term 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 E11.65 Active 035185677 Problem History of high cholesterol Z86.39 Active 274114228 Problem Bipolar I disorder with mood-congruent psychotic features F31.9 Active 289634856 Problem History of seizures Z87.898 Active 303466279 Problem Bipolar I disorder with duy F31.10 Active 74132098 Problem Primary insomnia F51.01 Active 5953679 Problem Gastritis and duodenitis K29.90 Active [id number] ALLERGIES No Information ENCOUNTERS Encounter Location Date Diagnosis [facility] [id number] [place] [address] 92382- 5134 17 Nov, 2018 [facility] [id number] [place] [address] 73150- 7418 31 Aug, 2018 Type 2 diabetes mellitus 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s E11.9 [facility] [id number] [place] [address] 10322- 7011 30 Aug, 2018 [facility] [id number] [place] [address] 06977- 9417 18 Aug, 2018 Type 2 diabetes mellitus 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s E11.9 [facility] [id number] [place] [address] 96240- 5349 12 Aug, 2018 [facility] [id number] [place] [address] 28123- 7869 Aug, [facility] [id number] [place] [address] 10059- 6605 Aug, Bipolar 2 disorder F31.81 ; Chronic post-traumatic stress disorder (PTSD) F43.12 and Panic disorder with agoraphobia F40.01 [facility] [id number] [place] [address] 76604- 7976 Aug, [facility] [id number] [place] [address] 91822- 2965 Jul, [facility] [id number] [place] [address] 14326- 2241 Jul, Type 2 diabetes mellitus 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s E11.9 ; Fallen bladder N81.10 ; Stress incontinence of urine N39.3 ; Gall bladder disease K82.9 ; Periodontal abscess K05.219 ; Diarrhea, unspecified R19.7 ; Nausea with vomiting, unspecified R11.2 and Chronic tension-type headache, not intractable G44.229 [facility] [id number] [place] [address] 26688- 0689 Jul, [facility] [id number] [place] [address] 04169- 0775 Jul, [facility] [id number] [place] [address] 97585- 3473 Jul, [facility] [id number] [place] [address] 31087- 4365 Jul, Bipolar 2 disorder F31.81 ; Panic disorder with agoraphobia F40.01 and Chronic post-traumatic stress disorder (PTSD) F43.12 [facility] [id number] [place] [address] 45976- 4713 Jun, [facility] [id number] [place] [address] 91276- 3217 Jun, [facility] [id number] [place] [address] 04196- 1351 Jun, Lumbago M54.5 [facility] [id number] [place] [address] 38067- 9999 Jun, Type 2 diabetes mellitus with hyperglycemia E11.65 [facility] [id number] [place] [address] 70082- 2958 Jun, [facility] [id number] [place] [address] 72017- 3760 Jun, Type 2 diabetes mellitus with hyperglycemia E11.65 ; El 's esophageal ulceration K22.10 and Lumbago M54.5 [facility] [id number] [place] [address] 21907- 5500 Jun, Type 2 diabetes mellitus with hyperglycemia E11.65 [facility] [id number] [place] [address] 43366- 1743 Jun, [facility] [id number] [place] [address] 87412- 0072 Jun, [facility] [id number] [place] [address] 90583- 6921 Jun, Bipolar affective disorder, currently depressed, mild F31.31 ; Chronic post-traumatic stress disorder (PTSD) F43.12 and Panic disorder with agoraphobia F40.01 [facility] [id number] [place] [address] 64952- 5251 Jun, [facility] [id number] [place] [address] 56827- 4428 Jun, [facility] [id number] [place] [address] 41537- 8477 Jun, Type 2 diabetes mellitus with hyperglycemia E11.65 [facility] [id number] [place] [address] 29150- 1142 Jun, Uncontrolled type 2 diabetes mellitus with hyperglycemia E11.65 [facility] [id number] [place] [address] 98265- 4887 Jun, [facility] [id number] [place] [address] 47672- 6310 May, Lumbago M54.5 [facility] [id number] [place] [address] [id number] May, [facility] [id number] [address]- 5746 May, [facility] [id number] [place] [address] 13836- 6614 May, [facility] [address] [address]- 9023 May, [facility] [id number] [place] [address] 04053- 1737 May, [facility] [id number] [place] [address], [place] [address]- 6504 May, [facility] [id number] [place] [address] 91411- 3652 May, [facility] [id number] [place] [address] 07533- 7737 May, Lumbago M54.5 [facility] [address] [address]- 5316 May, [facility] [id number] [place] [address] 56329- [address], [address] of the chest R93.8 [facility] [address] [address]- 0769 Apr, Bipolar 2 disorder F31.81 ; Chronic post-traumatic stress disorder (PTSD) F43.12 and Panic disorder with agoraphobia F40.01 [facility] [address] [address]- [address], [address] of the chest R93.8 [facility] [id number] [address]- [address] Apr, [address] of the chest R93.8 [facility] [address] [address]- 0601 Apr, [facility] [id number] [place] [address] 48369- 0249 11 Apr, 2018 Type 2 diabetes mellitus with hyperglycemia E11.65 [place] [address] 55269- 6781 Apr, 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 mellitus 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, without long-term 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 E11.9 ; Watery eyes H04.203 ; Low back pain M54.5 ; Other chronic pain G89.29 ; Chronic tension-type headache, not intractable G44.229 ; Uncontrolled type 2 diabetes mellitus 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 , without long-term 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 E11.65 and Bronchitis J40 [place] [address] 11943- 3780 Apr, [facility] [facility] [id number] [place] [address] 48651- 4810 Apr, Lumbago M54.5 [facility] [id number] [place] [address] 36291- 7211 March, [facility] [id number] [place] [address] 33779 -8363 March, Cough R05 ; Pneumonia due to infectious organism, unspecified laterality, unspecified part of lung J18.9 and Non-intractable vomiting with nausea, unspecified vomiting type R11.2 [facility] [id number] [place] [address] 20937- 9622 March, Bronchitis J40 [facility] [id number] [place] [address] 69908- 1326 March, [facility] [id number] [place] [address] 76622- 7007 March, El's esophageal ulceration K22.10 and Type 2 diabetes mellitus with hyperglycemia E11.65 [facility] [id number] [place] [address] 03149- 8712 March, Panic disorder with agoraphobia F40.01 ; Chronic post- traumatic stress disorder (PTSD) F43.12 and Bipolar 2 disorder F31.81 [facility] [address] [address]- 6380 March, Type 2 diabetes mellitus with hyperglycemia E11.65 [facility] [id number] [place] [address] 73236- 7183 March, [facility] [id number] [place] [address] 95714- 1180 March, Lumbago M54.5 [facility] [id number] [place] [address] 41162- 0158 March, [facility] [id number] [place] [address] 14066- 4993 March, Irritable bowel syndrome with diarrhea K58.0 ; Primary insomnia F51.01 ; Type 2 diabetes mellitus with hyperglycemia E11.65 and halfway 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 [facility] [id number] [place] [address] 92389- 9169 March, [facility] [id number] [place] [address] 50367- 8791 Jan, [facility] [id number] [place] [address] 40480- 2791 Jan, [facility] [id number] [place] [address] 48722- 5324 Jan, [facility] [id number] [place] [address] 60190- 6845 Jan, [facility] [id number] [place] [address] 48921- 7671 Jan, Dizziness R42 [facility] [id number] [place] [address] 26123- 0118 Jan, Bipolar affective disorder, currently depressed, mild F31.31 ; Panic disorder with agoraphobia F40.01 and Chronic post-traumatic stress disorder (PTSD) F43.12 [facility] [id number] [place] [address] 35111- 5916 17 Jan, 2018 Dizziness R42 [place] [id number] [place] [address] 43184- 9655 11 Jan, 2018 Chest pain, unspecified type R07.9 ; Exertional dyspnea R06.09 ; Hypertension, unspecified type I10 and Hyperlipidemia, unspecified hyperlipidemia type E78.5 [place] [id number] [place] [address] 45239- 5155 Jan, [place] [id number] [place] [address] 17785- 6623 Jan, Lumbago M54.5 [place] [address] 66697- 3551 04 Jan, 2018 El's esophageal ulceration K22.10 ; Blister (nonthermal ) of oral cavity, initial encounter S00.522A ; Local infection of the skin and subcutaneous tissue, unspecified L08.9 ; Type 2 diabetes mellitus with hyperglycemia E11.65 ; oil heaterman 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 and Stress incontinence N39.3 [facility] [facility] [id number] [place] [address] 01437- 2334 27 Dec, 2017 [place] [id number] [place] [address] 49942- 5167 27 Dec, 2017 [place] [id number] [place] [address] 08345- 6646 Dec, [facility] [id number] [place] [address] [id number] 16 Dec, 2017 Dental examination Z01.20 [place] [id number] [place] [address] 70559- 7284 15 Dec, 2017 Acute pain of right knee M25.561 [place] [id number] [place] [address] 15121- 7645 14 Dec, 2017 [place] [id number] [place] [address] 84823- 8362 Dec, [place] [id number] [place] [address] 94292- 6538 14 Dec, 2017 Lumbago M54.5 ; Acute pain of right knee M25.561 and Seasonal allergic rhinitis due to other allergic trigger J30.89 [facility] [id number] [place] [address] 61610- 5442 Dec, Type 2 diabetes mellitus with hyperglycemia E11.65 [place] [address] 04015- 0333 Dec, [place] [id number] [place] [address] 52632- 3266 Dec, [place] [address] 10096- 2943 23 Dec, 2017 [address] [address] 07029- 1283 Dec, [place] [id number] [place] [address] 03589- 0523 Dec, Chronic post-traumatic stress disorder (PTSD) F43.12 and Panic disorder with agoraphobia F40.01 [place] [id number] [place] [address] 25293- 4667 13 Dec, 2017 Low back pain M54.5 [place] [address] [place] [address] 00452- 5643 12 Dec, 2017 Type 2 diabetes mellitus with hyperglycemia E11.65 ; oil heaterman 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 ; Low back pain M54.5 ; Other chronic pain G89.29 and Encounter for therapeutic drug level monitoring Z51.81 [place] [address] 07661- 5480 09 Dec, 2017 Coughing R05 [place] [id number] [place] [address] 52494- 6906 Dec, [facility] [address] [id number] Dec, Dental examination Z01.20 [place] [id number] [place] [address] 95043- 3216 Nov, Type 2 diabetes mellitus 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s E11.9 and Encounter for therapeutic drug level monitoring Z51.81 [place] [id number] [place] [address] 06956- 2071 Nov, [place] [id number] [place] [address] 54404- 0916 Oct, Type 2 diabetes mellitus 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s E11.9 [place] [id number] [place] [address] 73319- 5710 Oct, Type 2 diabetes mellitus with hyperglycemia E11.65 [place] [id number] [place] [address] 94993- 2708 Aug, Type 2 diabetes mellitus 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s E11.9 [place] [id number] [place] [address] 32267- 6052 Aug, Type 2 diabetes mellitus 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s E11.9 ; Hypoglycemia E16.2 ; Lumbago M54.5 ; Stress incontinence of urine N39.3 and History of IA (myocardial infarction) I25.2 [place] [id number] [place] [address] 31039- 4701 Jun, [place] [id number] [place] [address] 17568- 1838 May, [place] [id number] [place] [address] 12816- 3783 Apr, Panic disorder with agoraphobia F40.01 [place] [id number] [place] [address] 49770- 9241 Apr, Panic disorder with agoraphobia F40.01 [place] [address] [place] [address] 97533- 7720 Apr, [place] [id number] [place] [address] 21660- 3788 March, Other chronic pain G89.29 [facility] [address] [address]- 8399 March, [facility] [id number] [place] [address] 26876- 1259 March, [facility] [id number] [place] [address] 50374- 7586 March, [facility] [id number] [place] [address] 39424- 4546 March, [facility] [id number] [place] [address] 59949- 8347 March, Type 2 diabetes mellitus 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s E11.9 [place] [id number] [place] [address] 76946- 3276 March, Diarrhea, unspecified type R19.7 [facility] [id number] [place] [address] 42057- 8749 March, Bipolar 2 disorder F31.81 ; Chronic post-traumatic stress disorder (PTSD) F43.12 and Type 2 diabetes mellitus with hyperglycemia E11.65 [facility] [address] [address]- 3684 March, [facility] [address] [address]- 9755 March, [facility] [id number] [place] [address] 80377- 2289 March, Hypertension, benign I10 ; Type 2 diabetes mellitus with hyperglycemia E11.65 ; Hepatitis C B19.20 ; Gastritis and duodenitis K29.90 and Dysuria R30.0 [facility] [address] [address]- 2554 March, Hypertension, benign I10 ; Type 2 diabetes mellitus with hyperglycemia E11.65 ; Hepatitis C B19.20 ; Gastritis and duodenitis K29.90 and Dysuria R30.0 [place] [address] [address]- 3217 March, Panic disorder with agoraphobia F40.01 ; Chronic post- traumatic stress disorder (PTSD) F43.12 ; Epilepsy G40.909 and Bipolar I disorder with mood-congruent psychotic features F31.9 [facility] [address] [address]- 3546 March, [facility] [id number] [place] [address] 42981 2545 March, Type 2 diabetes mellitus with hyperglycemia E11.65 [facility] [id number] [place] [address] 45450- 8673 18 Jan, 2017 Bipolar I disorder with duy F31.10 [facility] [id number] [place] [address] 30098- 1069 Jan, Bipolar 2 disorder F31.81 ; Chronic post-traumatic stress disorder (PTSD) F43.12 and Type 2 diabetes mellitus with hyperglycemia E11.65 [facility] [id number] [place] [address] 58141- 6464 Jan, [facility] [id number] [place] [address] 24916- 4302 Jan, [facility] [id number] [place] [address] 46367- 5311 14 Jan, 2017 Panic disorder with agoraphobia F40.01 [facility] [address] [place] [address] 21601- 2536 Jan, Panic disorder with agoraphobia F40.01 ; Bipolar I disorder with mood-congruent psychotic features F31.9 ; Chronic post-traumatic stress disorder (PTSD) F43.12 and Epilepsy G40.909 [facility] [id number] [address] Jan, [facility] [id number] [place] [address] 52841- 7630 Jan, [facility] [id number] [address] 10 Jan, 2017 Type 2 diabetes mellitus 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s E11.9 and Hypoglycemia E16.2 [facility] [address] [id number] [place] [address] 51380- 1145 07 Jan, 2017 Type 2 diabetes mellitus 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s E11.9 ; Primary insomnia F51.01 and Hypertension, benign I10 [facility] [address] [place] [id number] [place] [address] 60488- 4998 06 Jan, 2017 [facility] [place] [id number] [place] [address] [id number] Jan, [place] [address] [place] [id number] [place] [address] 12130- 1050 31 Dec, 2016 Type 2 diabetes mellitus with hyperglycemia E11.65 [facility] [address] [place] [id number] [place] [address] 31878- 1722 Dec, [facility] [address] [place] [id number] [place] [address] 48721- 2431 Dec, Bipolar 2 disorder F31.81 ; Panic disorder with agoraphobia F40.01 ; Chronic post-traumatic stress disorder (PTSD) F43.12 and Epilepsy G40.909 [facility] [place] [id number] [place] [address] 71495- 5193 Dec, [facility] [id number] [place] [address] 97415- 2587 14 Dec, 2016 [facility] [id number] [place] [address] 39675- 8478 09 Dec, 2016 Bipolar 2 disorder F31.81 ; Panic disorder with agoraphobia F40.01 ; Chronic post-traumatic stress disorder (PTSD) F43.12 and Epilepsy G40.909 [facility] [id number] [place] [address] 07563- 4789 09 Dec, 2016 [facility] [id number] [place] [address] 35670- 1864 Dec, [facility] [place] [id number] [address]- [address]95 Dec, [place] [address] 93798- 9899 Dec, Type 2 diabetes mellitus with hyperglycemia E11.65 ; oil heaterman 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 and Lumbago M54.5 [place] [address] 10553- 0470 Dec, [place] [address] 75710- 9343 Dec, [place] [address] 01303- 5585 Dec, [facility] [address] 78[address] -8624 Dec, Pain of left leg M79.605 and Pain in right leg M79.604 [place] [address] 95951- 9869 Dec, [place] [address] 03498- 5280 Dec, Type 2 diabetes mellitus with hyperglycemia E11.65 [place] [address] 97863- 0045 Dec, [place] [address] 17324- 4512 Dec, Type 2 diabetes mellitus with hyperglycemia E11.65 ; halfway 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 ; Vagina, candidiasis B37.3 and Other chronic pain G89.29 [place] [address] 76249- 8231 Nov, Panic disorder with agoraphobia F40.01 [place] [address] 85167- 1257 Nov, [facility] [address] [address] Nov, [facility] [address] [place] [id number] [place] [address] 80967- 7985 Nov, Hypoglycemia E16.2 [facility] [address] [place] [id number] [place] [address] 40626- 6234 Nov, [facility] [address] [place] [id number] [place] [address] 89711- 0611 Nov, [facility] [id number] [place] [address] 96139- 5575 Nov, [place] [address] [place] [id number] [place] [address] 25058- 6480 Nov, Type 2 diabetes mellitus with hyperglycemia E11.65 and oil heaterman 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 [place] [address] [place] [id number] [place] [address] 48925- 6033 Nov, Panic disorder with agoraphobia F40.01 ; Bipolar 2 disorder F31.81 ; Chronic post-traumatic stress disorder (PTSD) F43.12 and Epilepsy G40.909 [place] [id number] [place] [address] 03397- 0101 Nov, Panic disorder with agoraphobia F40.01 [place] [address] [address] 2670 Oct, [facility] [address] [address]- 0186 Oct, [facility] [address] [place] [id number] [place] [address] 62225- 8399 Oct, Bipolar 2 disorder F31.81 ; Panic disorder with agoraphobia F40.01 and Mood disorder F39 [place] [address] [address] 2216 Oct, Diabetes E11.9 ; Type 2 diabetes mellitus with hyperglycemia E11.65 and halfway 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 [facility] [address] [address] 4895 Oct, [facility] [id number] [place] [address] 69054- 6672 Sep, [facility] [address] [place] [id number] [place] [address] 08545- 9515 Sep, Bipolar 2 disorder F31.81 and Mood disorder F39 [facility] [address] [place] [id number] [place] [address] 83712- 9692 Sep, [facility] [address] [place] [id number] [place] [address] 72925- 5077 Sep, Uncontrolled type 2 diabetes mellitus 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, without long-term 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 E11.65 [facility] [address] [place] [id number] [place] [address] 50415- 2538 Sep, [facility] [address] [place] [id number] [place] [address] 38319- 8602 Sep, [facility] [address] [place] [id number] [place] [address] 14989- 4975 Sep, [facility] [address] [place] [id number] [place] [address] 30964- 7654 Sep, [facility] [id number] [place] [address] 65279- 4733 Sep, Bipolar 2 disorder F31.81 ; Chronic post-traumatic stress disorder (PTSD) F43.12 ; Panic disorder with agoraphobia F40.01 and Epilepsy G40.909 [facility] [id number] [place] [address] 48238- 6794 11 Sep, 2016 Bipolar 2 disorder F31.81 ; PTSD (post-traumatic stress disorder) F43.10 and Panic disorder with agoraphobia F40.01 [facility] [id number] [place] [address] 15693- 3035 Sep, [facility] [id number] [place] [address] 69877- 9311 Aug, History of seizures Z87.898 ; Panic disorder with agoraphobia F40.01 and Bipolar 2 disorder F31.81 [facility] [address] [place] [id number] [address]- 9386 19 Aug, 2016 [facility] [address] [place] [id number] [place] [address] 96480- 1667 17 Aug, 2016 [facility] [address] [place] [id number] [place] [address] 85540- 9937 Aug, [facility] [address] [place] [id number] [place] [address] 88654- 0162 Aug, [facility] [address] [place] [id number] [place] [address] 03484- 3526 Aug, [facility] [address] [place] [id number] [place] [address] 99298- 0913 Aug, [facility] [address] [place] [id number] [place] [address] 52964- 9567 Aug, Hypoglycemia E16.2 and Bilateral impacted cerumen H61.23 [facility] [address] [place] [id number] [place] [address] 28885- 6271 Aug, [facility] [address] [place] [id number] [place] [address] 09258- 5531 Jul, [facility] [address] [place] [id number] [place] [address] 17132- 8280 Jul, [facility] [address] [place] [id number] [place] [address] 21409- 5465 15 Jul, 2016 Bipolar 2 disorder F31.81 ; Panic disorder with agoraphobia F40.01 ; PTSD (post-traumatic stress disorder) F43.10 and Epilepsy G40.909 [facility] [address] [place] [id number] [place] [address] 98197- 4791 12 Jul, 2016 [facility] [address] [address]- 5966 Jul, Type 2 diabetes mellitus 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s E11.9 and Coughing R05 [facility] [address] [place] [id number] [place] [address] 05907- 4067 Jul, [facility] [address] [place] [id number] [place] [address] 51188- 6593 Jun, [facility] [address] [place] [id number] [place] [address] 49072- 2226 Jun, Bipolar 2 disorder F31.81 ; PTSD (post-traumatic stress disorder) F43.10 and Panic disorder with agoraphobia F40.01 [facility] [address] [place] [id number] [place] [address] 37207- 9791 Jun, [facility] [address] [place] [id number] [place] [address] 06013- 0891 Jun, [facility] [address] [place] [id number] [place] [address] 70107- 8646 Jun, [facility] [address] [place] [id number] [place] [address] 24236- 1700 Jun, Type 2 diabetes mellitus 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s E11.9 and COPD (chronic obstructive pulmonary disease) J44.9 [facility] [address] [place] [address] [id number] May, Dental examination Z01.20 and Dental caries K02.9 [facility] [id number] [place] [address] 04165- 2424 May, Bipolar 2 disorder F31.81 ; PTSD (post-traumatic stress disorder) F43.10 and Panic disorder with agoraphobia F40.01 [facility] [id number] [place] [address] 90228- 0187 May, Lumbago with sciatica, right side M54.41 ; Other chronic pain G89.29 and Uncontrolled type 2 diabetes mellitus 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, without long-term 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 E11.65 [place] [address] [address]- 1645 May, Chronic bronchitis, unspecified chronic bronchitis type J42 [place] [address] [place] [id number] [place] [address] 11721- 0051 May, [place] [address] [place] [id number] [place] [address] 23168- 4671 May, [place] [address] [place] [id number] [place] [address] 19427- 5166 May, Chest pain, unspecified type R07.9 ; Tobacco use Z72.0 ; Type 2 diabetes mellitus 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s E11.9 ; Essential hypertension I10 ; Hyperlipidemia, unspecified hyperlipidemia type E78.5 ; Obesity (BMI 30- 39.9) E66.9 ; History of hypothyroidism Z86.39 ; Chronic obstructive pulmonary disease, unspecified COPD type J44.9 ; Anxiety F41.9 ; Bilateral claudication of lower limb I73.9 and Bipolar 2 disorder F31.81 [place] [address] [place] [address] 44988- 2617 May, Bipolar 2 disorder F31.81 ; Panic disorder with agoraphobia F40.01 and Tobacco abuse Z72.0 [place] [address] [address]- 2647 Apr, [place] [address] [address]- 4533 Apr, [place] [address] [place] [id number] [place] [address] 73218- 8747 Apr, [place] [id number] [place] [address] 86590- 4335 Apr, Bipolar 2 disorder F31.81 ; Panic disorder with agoraphobia F40.01 and PTSD (post-traumatic stress disorder) F43.10 [place] [address] [address]- 2501 Apr, Chronic bronchitis, unspecified chronic bronchitis type J42 ; Cervical neuritis M54.12 and Thoracic neuritis M54.14 [place] [address] 74258- 7359 15 Apr, 2016 [facility] [address] 93951- 5677 15 Apr, 2016 Cervicalgia M54.2 [place] [address] 67389- 8392 14 Apr, 2016 Bipolar 2 disorder F31.81 ; Panic disorder with agoraphobia F40.01 and PTSD (post-traumatic stress disorder) F43.10 [facility] [address] 04492 -7079 13 Apr, 2016 [facility] [address] 13408 -1553 09 Apr, 2016 Cough R05 and Tobacco dependence F17.200 [place] [address] 59940- 1475 06 Apr, 2016 [place] [address] 68750- 1538 Apr, [place] [address] 25743- 6264 March, Bipolar 2 disorder F31.81 ; Panic disorder with agoraphobia F40.01 and Generalized anxiety disorder F41.1 [place] [address] 81273- 6204 March, Closed displaced fracture of fifth metatarsal bone of right foot with routine healing, subsequent encounter S92.351D [place] [address] 39891- 3674 March, Bronchitis J40 [place] [address] 91460- 4558 March, [place] [address] 14496- 8991 March, [place] [address] [place] [address] 93721- 0702 March, Foot pain, right M79.671 ; Cervicalgia M54.2 and 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 mellitus 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, 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 [place] [address] [place] [id number] [place] [address] 48796- 7041 March, Fracture of fifth metatarsal bone of right foot S92.351A [place] [address] [place] [id number] [place] [address] 00241- 8692 March, [place] [address] 24545- 2871 Jan, Fracture of fifth metatarsal bone of right foot S92.351A [place] [address] [place] [id number] [place] [address] 99723- 4573 Jan, Bipolar 2 disorder F31.81 ; PTSD (post-traumatic stress disorder) F43.10 ; Panic disorder with agoraphobia F40.01 and Epilepsy G40.909 [place] [address] [place] [id number] [place] [address] 16440- 6486 Jan, History of IA (myocardial infarction) I25.2 and History of high cholesterol Z86.39 [place] [address] [place] [address] 56787- 6061 Jan, Bipolar 2 disorder F31.81 ; Panic disorder with agoraphobia F40.01 ; Tobacco abuse Z72.0 and PTSD (post-traumatic stress disorder) F43.10 [place] [address] [place] [address] 34623- 7149 Jan, Fracture of fifth metatarsal bone of right foot S92.351A [place] [address] [place] [id number] [place] [address] 39082- 2883 Jan, [place] [address] [place] [id number] [place] [address] 53473- 3708 Jan, History of high cholesterol Z86.39 [facility] [id number] [place] [address] 14473- 6424 Jan, History of IA (myocardial infarction) I25.2 [facility] [address] [place] [id number] [place] [address] 79655- 2628 Jan, [facility] [address] [place] [id number] [place] [address] 82855- 2887 Dec, Back pain M54.9 ; Diabetes E11.9 ; Right knee pain M25.561 and Chest pain R07.9 [facility] [address] [place] [id number] [place] [address] 40653- 7507 Dec, [place] [address] [place] [id number] [place] [address] 08345- 3004 Dec, [place] [address] [place] [id number] [place] [address] 50529- 1778 Dec, Cervicalgia M54.2 [facility] [address] [place] [id number] [place] [address] 79307- 8189 17 Jan, 2016 Bipolar 2 disorder F31.81 ; PTSD (post-traumatic stress disorder) F43.10 ; Panic disorder with agoraphobia F40.01 and Epilepsy G40.909 [facility] [address] [place] [id number] [place] [address] 94411- 6227 08 Jan, 2016 Bipolar 2 disorder F31.81 ; PTSD (post-traumatic stress disorder) F43.10 and Panic disorder with agoraphobia F40.01 [facility] [address] [place] [address] 21137- 6276 Dec, Diabetes E11.9 [facility] [address] [place] [id number] [place] [address] 71918- 4715 Dec, [facility] [id number] [place] [address] 73374- 2205 Dec, Other chronic pain G89.29 ; Hepatitis C B19.20 and History of seizures Z87.898 [facility] [address] [place] [id number] [place] [address] 15720- 9746 24 Dec, 2015 [facility] [address] [place] [id number] [place] [address] 40350- 5987 Dec, Bipolar 2 disorder F31.81 and Other chronic pain G89.29 [facility] [address] [place] [id number] [place] [address] 70548- 9253 Dec, Cervicalgia M54.2 and Diabetes E11.9 [facility] [address] [place] [id number] [place] [address] 18334- 2888 Dec, [facility] [address] 41629- 2008 Dec, [facility] [address] [place] [id number] [place] [address] 30556- 4430 Dec, [facility] [address] [place] [id number] [place] [address] 08459- 1721 Dec, [facility] [address] [place] [id number] [place] [address] 72490- 1563 Dec, Type 2 diabetes mellitus 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s E11.9 [facility] [address] [place] [id number] [place] [address] 93646- 0227 10 Dec, 2015 [facility] [address] [place] [id number] [place] [address] 33020- 3455 Dec, History of seizures Z87.898 and Hepatitis C B19.20 [facility] [address] [place] [id number] [place] [address] 85215- 7011 08 Dec, 2015 Hepatitis C B19.20 [facility] [address] [place] [id number] [place] [address] 85610- 9101 Dec, [facility] [address] [place] [address] 30973- 9658 Dec, Cervicalgia M54.2 ; COPD (chronic obstructive pulmonary disease) J44.9 and Hepatitis C B19.[address] 95922- 6695 Dec, Bipolar 2 disorder F31.81 ; History of hypertension Z86.79 ; History of anxiety Z86.59 ; Panic disorder with agoraphobia F40.01 and Epilepsy G40.[address] 92572- 6137 Nov, [address] 80385- 3369 Nov, [address] 80970- 9390 Nov, History of seizures Z87.898 ; OAB (overactive bladder) N32.81 ; Lumbago M54.5 ; Other chronic pain G89.29 ; Cervicalgia M54.2 ; Tobacco abuse Z72.0 ; Tobacco abuse counseling Z71.6 and Impaired fasting glucose R73.[address] 09372- 9367 Nov, Bipolar 2 disorder F31.81 ; PTSD (post-traumatic stress disorder) F43.10 ; History of anxiety Z86.59 ; History of COPD Z87.09 ; Panic disorder with agoraphobia F40.01 and Moderate depressed bipolar I disorder F31.[address] 88608- 6334 Nov, PTSD (post-traumatic stress disorder) F43.10 [facility] [address] [id number] 11 Nov, 2015 Dental examination Z01.20 and Dental caries K02.[address] 97857- 2473 08 Nov, 2015 History of hypertension Z86.79 ; History of hypothyroidism Z86.39 ; History of high cholesterol Z86.39 ; History of COPD Z87.09 and Overactive bladder N32.[address] [place] [id number] [place] [address] 60495- 7572 Nov, Bipolar 2 disorder F31.81 and PTSD (post-traumatic stress disorder) F43.10 [place] [address] [place] [id number] [place] [address] 28558- 9265 Nov, PTSD (post-traumatic stress disorder) F43.10 ; Panic disorder with agoraphobia F40.01 ; Epilepsy G40.909 and Moderate depressed bipolar I disorder F31.32 [place] [address] [place] [id number] [place] [address] 73545- 3465 Nov, [place] [id number] [place] [address] 49640- 5484 Nov, [place] [id number] [place] [address] 65213- 2571 Oct, [place] [id number] [place] [address] 39901- 4978 Oct, Generalized anxiety disorder F41.1 ; Major depression, recurrent F33.9 and PTSD (post-traumatic stress disorder) F43.10 [place] [id number] [place] [address] 21219- 8558 Oct, Elevated fasting glucose R73.01 [place] [id number] [place] [address] 55827- 1385 Oct, Elevated fasting glucose R73.01 [place] [address] [place] [id number] [place] [address] 72479- 8677 Oct, History of COPD Z87.09 [address] [place] [address] 94698- 7199 15 Oct, 2015 General medical exam Z00.00 ; History of hypertension Z86.79 ; History of hypothyroidism Z86.39 ; History of hepatitis Z86.19 ; History of high cholesterol Z86.39 and History of seizures Z87.898 [place] [id number] [place] [address] 30118- 7561 10 Oct, 2015 General medical exam Z00.00 ; History of hypertension Z86.79 ; History of hypothyroidism Z86.39 ; Bipolar 2 disorder F31.81 ; PTSD ( post-traumatic stress disorder) F43.10 ; History of hepatitis Z86.19 ; History of high cholesterol Z86.39 ; History of anxiety Z86.59 ; History of seizures Z87.898 ; History of IA (myocardial infarction) I25.2 and History of COPD Z87.09 [place] [address] [place] [address] 91464- 7226 10 Oct, 2015 Generalized anxiety disorder F41.1 ; Depression F32.9 and PTSD (post-traumatic stress disorder) F43.10 [place] [address] [place] [id number] [place] [address] 34573- 2546 14 Jan, 2015 [place] [address] [place] [id number] [place] [address] 40606- 2546 Jan, [place] [address] [place] [id number] [place] [address] 64245- 2546 Jun, [facility] [address] [place] [id number] Jun, [place] [address] [place] [id number] [place] [address] 99361- 2546 May, [place] [address] [address]- 2546 May, [facility] [address] [place] [id number] May, [place] [address] [address]- 2546 May, [facility] [address] [id number] May, [place] [address] [address]- 2546 May, IMMUNIZATIONS No Known Immunizations SOCIAL HISTORY Never Assessed REASON FOR VISIT Refill request PLAN OF CARE VITAL SIGNS MEDICATIONS Medication Instructions Dosage Frequency Start Date End Date Duration Status Levemir 100 UNIT/ML Subcutaneous 2 times a day Inject 65 units 12h Aug, 30 days Active RESULTS No Results PROCEDURES [...]
--- OUTSIDE RECORDS SUMMARY | 2019-01-26 07:06 | XMS REPORT ---
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 Name Role Phone FRANK LUNA Unavailable PROBLEMS Type Condition ICD9-CM Code QPP66-HJ Code Onset Dates Condition Status SNOMED Code Problem Other chronic pain G89.29 Active 63949065 Problem OAB (overactive bladder) N32.81 Active 359529734 Problem Tobacco abuse Z72.0 Active 58111749 Problem Cervicalgia M54.2 Active 18792472 Problem Lumbago M54.5 Active 704788322 Problem Hepatitis C B19.20 Active 38058892 Problem COPD (chronic obstructive pulmonary disease) J44.9 Active 97642262 Problem Diabetes E11.9 Active 40938339 Problem Type 2 diabetes mellitus 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s E11.9 Active 640303566 Problem Stress incontinence of urine N39.3 Active 23083883 Problem Bilateral claudication of lower limb I73.9 Active 368512394 Problem Seasonal allergic rhinitis due to other allergic trigger J30.89 Active 866700429 Problem Hypoglycemia E16.2 Active 288730744 Problem Hypertension, unspecified type I10 Active 66216223 Problem Bipolar affective disorder, currently depressed, mild F31.31 Active 293809153 Problem Hyperlipidemia, unspecified hyperlipidemia type E78.5 Active 68159454 Problem Fallen bladder N81.10 Active 268235262 Problem Chronic tension-type headache, not intractable G44.229 Active 809761030 Problem retirement 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 Active 425391607 Problem Type 2 diabetes mellitus with hyperglycemia E11.65 Active 406089508 Problem Bipolar 2 disorder F31.81 Active 19468834 Problem Chronic post-traumatic stress disorder (PTSD) F43.12 Active 284941333 Problem History of hypothyroidism Z86.39 Active 422692969 Problem Stress incontinence N39.3 Active 36283391 Problem El's esophageal ulceration K22.10 Active 988962148 Problem 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 mellitus 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, without long -term 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 E11.9 Active 433082677 Problem Irritable bowel syndrome with diarrhea K58.0 Active 971399955 Problem Panic disorder with agoraphobia F40.01 Active 67600306 Problem Type 2 diabetes mellitus with hyperglycemia E11.65 Active 686575911 Problem Epilepsy G40.909 Active 46227326 Problem Hypertension, benign I10 Active 90383723 Problem History of NC (myocardial infarction) I25.2 Active 282618885 Problem Mood disorder F39 Active 22352366 Problem History of hypertension Z86.79 Active 295257239 Problem Uncontrolled type 2 diabetes mellitus 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, without long-term 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 E11.65 Active 720410003 Problem History of high cholesterol Z86.39 Active 345938757 Problem Bipolar I disorder with mood-congruent psychotic features F31.9 Active 878259882 Problem History of seizures Z87.898 Active 120747051 Problem Bipolar I disorder with duy F31.10 Active 95889672 Problem Primary insomnia F51.01 Active 2783363 Problem Gastritis and duodenitis K29.90 Active 101759593 ALLERGIES No Information ENCOUNTERS Encounter Location Date Diagnosis [facility] [id number] [place] [address] 73452- 6660 17 Nov, 2018 [facility] [id number] [place] [address] 88576- 0782 26 Sep, 2018 [facility] [id number] [place] [address] 80068- 6619 16 Sep, 2018 [facility] [id number] [place] [address] 68961- 9366 16 Sep, 2018 Type 2 diabetes mellitus 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s E11.9 [facility] [id number] [place] [address] 88988- 0031 16 Sep, 2018 Type 2 diabetes mellitus 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s E11.9 [facility] [id number] [place] [address] 60924- 2470 Aug, Type 2 diabetes mellitus 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s E11.9 [facility] [id number] [place] [address] 41806- 4769 30 Aug, 2018 [facility] [address] [address] 3136 Aug, Type 2 diabetes mellitus 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s E11.9 [facility] [id number] [place] [address] 02689- 0000 Aug, [facility] [id number] [place] [address] 92520- 7328 Aug, [facility] [id number] [place] [address] 36667- 8728 Aug, Bipolar 2 disorder F31.81 ; Chronic post-traumatic stress disorder (PTSD) F43.12 and Panic disorder with agoraphobia F40.01 [facility] [id number] [place] [address] 87901- 5962 Aug, [facility] [id number] [place] [address] 78292- 3145 Jul, [facility] [id number] [place] [address] 85748- 7433 Jul, Type 2 diabetes mellitus 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s E11.9 ; Fallen bladder N81.10 ; Stress incontinence of urine N39.3 ; Gall bladder disease K82.9 ; Periodontal abscess K05.219 ; Diarrhea, unspecified R19.7 ; Nausea with vomiting, unspecified R11.2 and Chronic tension-type headache, not intractable G44.229 [facility] [address] [address]- 2699 Jul, [place] [id number] [place] [address] 08760- 7678 Jul, [place] [id number] [place] [address] 23444- 2194 Jul, [facility] [id number] [place] [address] 40666- 5443 Jul, Bipolar 2 disorder F31.81 ; Panic disorder with agoraphobia F40.01 and Chronic post-traumatic stress disorder (PTSD) F43.12 [facility] [address] [address]- 7372 Jun, [facility] [id number] [place] [address] 66834- 3142 Jun, [facility] [id number] [place] [address] 76010- 8211 Jun, Lumbago M54.5 [facility] [id number] [place] [address] 00136- 3324 Jun, Type 2 diabetes mellitus with hyperglycemia E11.65 [facility] [id number] [place] [address] 89331- 3112 Jun, [facility] [id number] [place] [address] 79994- 2154 Jun, Type 2 diabetes mellitus with hyperglycemia E11.65 ; El 's esophageal ulceration K22.10 and Lumbago M54.5 [facility] [id number] [place] [address] 06720- 7863 Jun, Type 2 diabetes mellitus with hyperglycemia E11.65 [facility] [id number] [place] [address] 79093- 8264 Jun, [facility] [id number] [place] [address] 57579- 8220 Jun, [facility] [id number] [place] [address] 12234- 3211 Jun, Bipolar affective disorder, currently depressed, mild F31.31 ; Chronic post-traumatic stress disorder (PTSD) F43.12 and Panic disorder with agoraphobia F40.01 [facility] [id number] [place] [address] 62749- 0986 Jun, [facility] [address] [address]- 7292 Jun, [facility] [id number] [place] [address] 83023- 5917 Jun, Type 2 diabetes mellitus with hyperglycemia E11.65 [facility] [address] [facility] [id number] [address] 3886 Jun, Uncontrolled type 2 diabetes mellitus with hyperglycemia E11.65 [facility] [address] [facility] [id number] [place] [address]- 0546 Jun, [facility] [id number] [place] [address] 97809- 0476 May, Lumbago M54.5 [facility] [address] [facility] [id number] [id number] May, [facility] [id number] [place] [address] 88812- 5428 May, [facility] [id number] [place] [address] 37821- 1328 May, [facility] [id number] [place] [address] 57772- 3308 May, [facility] [address] [address]- 4643 May, [facility] [id number] [place] [address] 22496- 9205 May, [facility] [id number] [place] [address] 50117- 9763 May, [facility] [id number] [place] [address] 76205- 9311 May, Lumbago M54.5 [facility] [id number] [address]- 4781 May, [facility] [id number] [place] [address] 61173- [address] Apr, [address] of the chest R93.8 [facility] [address] [address]- 5586 Apr, Bipolar 2 disorder F31.81 ; Chronic post-traumatic stress disorder (PTSD) F43.12 and Panic disorder with agoraphobia F40.01 [place] [address] 85289- 5763 Apr, Abnormal CT of the chest R93.8 [place] [address] 52684- 1072 20 Apr, [address] of the chest R93.8 [place] [address] 80067- 7544 14 Apr, 2018 [place] [address] 45964- 8188 Apr, Type 2 diabetes mellitus with hyperglycemia E11.65 [place] [address] 65198- 9685 Apr, 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 mellitus 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, without long-term 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 E11.9 ; Watery eyes H04.203 ; Low back pain M54.5 ; Other chronic pain G89.29 ; Chronic tension-type headache, not intractable G44.229 ; Uncontrolled type 2 diabetes mellitus 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 , without long-term 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 E11.65 and Bronchitis J40 [place] [address] 62919- 6985 Apr, [place] [id number] [place] [address] 87117- 0453 Apr, Lumbago M54.5 [facility] [id number] [place] [address] 07954- 3851 March, [facility] [address] 39885 -1119 March, Cough R05 ; Pneumonia due to infectious organism, unspecified laterality, unspecified part of lung J18.9 and Non-intractable vomiting with nausea, unspecified vomiting type R11.2 [place] [address] 29493- 7777 March, Bronchitis J40 [facility] [id number] [place] [address] 93455- 2434 March, [facility] [id number] [place] [address] 78163- 9574 March, El's esophageal ulceration K22.10 and Type 2 diabetes mellitus with hyperglycemia E11.65 [facility] [address] 82535- 4127 March, Panic disorder with agoraphobia F40.01 ; Chronic post- traumatic stress disorder (PTSD) F43.12 and Bipolar 2 disorder F31.81 [facility] [id number] [place] [address] 23127- 9817 March, Type 2 diabetes mellitus with hyperglycemia E11.65 [place] [id number] [place] [address] 43402- 5477 March, [facility] [id number] [place] [address] 63871- 5712 March, Lumbago M54.5 [facility] [id number] [place] [address] 72002- 2693 March, [facility] [id number] [place] [address] 12661- 1335 March, Irritable bowel syndrome with diarrhea K58.0 ; Primary insomnia F51.01 ; Type 2 diabetes mellitus with hyperglycemia E11.65 and retirement 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 [facility] [id number] [place] [address] 88862- 3863 March, [facility] [id number] [place] [address] 36532- 2406 Jan, [facility] [id number] [place] [address] 64216- 8285 Jan, [facility] [id number] [place] [address] 18797- 3929 Jan, [facility] [id number] [place] [address] 05223- 8853 Jan, [facility] [id number] [place] [address] 47428- 5998 Jan, Dizziness R42 [facility] [id number] [place] [address] 15807- 3891 Jan, Bipolar affective disorder, currently depressed, mild F31.31 ; Panic disorder with agoraphobia F40.01 and Chronic post-traumatic stress disorder (PTSD) F43.12 [facility] [id number] [place] [address] 15569- 2807 Jan, Dizziness R42 [facility] [id number] [place] [address] 53474- 2486 Jan, Chest pain, unspecified type R07.9 ; Exertional dyspnea R06.09 ; Hypertension, unspecified type I10 and Hyperlipidemia, unspecified hyperlipidemia type E78.5 [facility] [id number] [place] [address] 13873- 2156 Jan, [place] [id number] [place] [address] 17862- 5784 Jan, Lumbago M54.5 [facility] [id number] [place] [address] 52426- 9815 Jan, El's esophageal ulceration K22.10 ; Blister (nonthermal ) of oral cavity, initial encounter S00.522A ; Local infection of the skin and subcutaneous tissue, unspecified L08.9 ; Type 2 diabetes mellitus with hyperglycemia E11.65 ; 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 and Stress incontinence N39.3 [place] [id number] [place] [address] 85567- 6534 Dec, [place] [id number] [place] [address] 33696- 1122 Dec, [place] [id number] [place] [address] 57297- 4827 19 Dec, 2017 [facility] [address] [id number] 16 Dec, 2017 Dental examination Z01.20 [facility] [id number] [place] [address] 33617- 5319 15 Dec, 2017 Acute pain of right knee M25.561 [facility] [id number] [place] [address] 68413- 6584 14 Dec, 2017 [facility] [id number] [place] [address] 57516- 1785 14 Dec, 2017 [facility] [id number] [place] [address] 36681- 8736 14 Dec, 2017 Lumbago M54.5 ; Acute pain of right knee M25.561 and Seasonal allergic rhinitis due to other allergic trigger J30.89 [facility] [id number] [place] [address] 19318- 8710 12 Dec, 2017 Type 2 diabetes mellitus with hyperglycemia E11.65 [facility] [id number] [place] [address] 95184- 1159 08 Dec, 2017 [facility] [id number] [place] [address] 08199- 6725 08 Dec, 2017 [facility] [id number] [place] [address] 79957- 7632 23 Dec, 2017 [facility] [id number] [place] [address] 15846- 9755 15 Dec, 2017 [facility] [id number] [place] [address] 74726- 0295 15 Dec, 2017 Chronic post-traumatic stress disorder (PTSD) F43.12 and Panic disorder with agoraphobia F40.01 [facility] [id number] [place] [address] 74307- 2512 13 Dec, 2017 Low back pain M54.5 [facility] [id number] [place] [address] 29667- 6609 Dec, Type 2 diabetes mellitus with hyperglycemia E11.65 ; retirement 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 ; Low back pain M54.5 ; Other chronic pain G89.29 and Encounter for therapeutic drug level monitoring Z51.81 [facility] [id number] [place] [address] 88242- 1522 09 Dec, 2017 Coughing R05 [place] [address] 20658- 4545 Dec, [facility] [id number] [place] [address] [id number] 07 Dec, 2017 Dental examination Z01.20 [place] [address] 25738- 6582 Nov, Type 2 diabetes mellitus 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s E11.9 and Encounter for therapeutic drug level monitoring Z51.81 [place] [address] 64561- 5930 Nov, [facility] [id number] [place] [address] 65703- 9762 Oct, Type 2 diabetes mellitus 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s E11.9 [facility] [id number] [place] [address] 74635- 8498 Oct, Type 2 diabetes mellitus with hyperglycemia E11.65 [facility] [id number] [place] [address] 57231- 5757 Aug, Type 2 diabetes mellitus 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s E11.9 [facility] [id number] [place] [address] 75557- 5692 Aug, Type 2 diabetes mellitus 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s E11.9 ; Hypoglycemia E16.2 ; Lumbago M54.5 ; Stress incontinence of urine N39.3 and History of NC (myocardial infarction) I25.2 [place] [id number] [place] [address] 42047- 8222 Jun, [place] [address] 73731- 4396 May, [facility] [address] [address]- 3943 Apr, Panic disorder with agoraphobia F40.01 [facility] [address] [address]- 8220 08 Apr, 2017 Panic disorder with agoraphobia F40.01 [facility] [address] [address]- 8190 Apr, [facility] [address] [address]- 6289 March, Other chronic pain G89.29 [facility] [address] [address]- 7620 March, [facility] [address] [address]- 9300 March, [facility] [address] [address]- 1953 March, [facility] [address] [address]- 4194 March, [facility] [address] [address]- 0350 March, Type 2 diabetes mellitus without complications E11.9 [facility] [address] [address]- 5092 March, Diarrhea, unspecified type R19.7 [facility] [id number] [address]- 3172 March, Bipolar 2 disorder F31.81 ; Chronic post-traumatic stress disorder (PTSD) F43.12 and Type 2 diabetes mellitus with hyperglycemia E11.65 [facility] [address] [address]- 1248 March, [facility] [address] [address]- 0562 March, [facility] [address] [address]- 2156 March, Hypertension, benign I10 ; Type 2 diabetes mellitus with hyperglycemia E11.65 ; Hepatitis C B19.20 ; Gastritis and duodenitis K29.90 and Dysuria R30.0 [facility] [id number] [place] [address] 14689- 1683 March, Hypertension, benign I10 ; Type 2 diabetes mellitus with hyperglycemia E11.65 ; Hepatitis C B19.20 ; Gastritis and duodenitis K29.90 and Dysuria R30.0 [facility] [id number] [place] [address] 55692- 3100 March, Panic disorder with agoraphobia F40.01 ; Chronic post- traumatic stress disorder (PTSD) F43.12 ; Epilepsy G40.909 and Bipolar I disorder with mood-congruent psychotic features F31.9 [facility] [id number] [place] [address] 26987- 0558 March, [facility] [id number] [place] [address] 05507- 9490 March, Type 2 diabetes mellitus with hyperglycemia E11.65 [facility] [id number] [place] [address] 09944- 3455 18 Jan, 2017 Bipolar I disorder with duy F31.10 [facility] [id number] [place] [address] 96999- 7198 Jan, Bipolar 2 disorder F31.81 ; Chronic post-traumatic stress disorder (PTSD) F43.12 and Type 2 diabetes mellitus with hyperglycemia E11.65 [facility] [id number] [place] [address] 23749- 4701 Jan, [facility] [id number] [place] [address] 33115- 2261 Jan, [facility] [id number] [place] [address] 47671- 1118 Jan, Panic disorder with agoraphobia F40.01 [facility] [address] [place] [address] 33230- 7910 13 Jan, 2017 Panic disorder with agoraphobia F40.01 ; Bipolar I disorder with mood-congruent psychotic features F31.9 ; Chronic post-traumatic stress disorder (PTSD) F43.12 and Epilepsy G40.909 [facility] [id number] [place] [address] 78074- 6774 Jan, [facility] [id number] [place] [address] 46739- 1909 Jan, [facility] [id number] [place] [address] 26163- 5565 10 Jan, 2017 Type 2 diabetes mellitus without complications E11.9 and Hypoglycemia E16.2 [facility] [id number] [place] [address] 61497- 7318 Jan, Type 2 diabetes mellitus without complications E11.9 ; Primary insomnia F51.01 and Hypertension, benign I10 [facility] [id number] [place] [address] [phone] Jan, [facility] [id number] [place] [address] [id number] Jan, [facility] [id number] [place] [address] [phone]- [phone] Dec, Type 2 diabetes mellitus with hyperglycemia E11.65 [facility] [id number] [place] [address] [phone] Dec, [facility] [id number] [place] [address] [id number]- [phone] Dec, Bipolar 2 disorder F31.81 ; Panic disorder with agoraphobia F40.01 ; Chronic post-traumatic stress disorder (PTSD) F43.12 and Epilepsy G40.909 [facility] [id number] [place] [address] [phone] Dec, [facility] [id number] [place] [address] [phone] Dec, [facility] [id number] [place] [address] [phone]- [phone] Dec, Bipolar 2 disorder F31.81 ; Panic disorder with agoraphobia F40.01 ; Chronic post-traumatic stress disorder (PTSD) F43.12 and Epilepsy G40.909 [place] [address] [phone]- [phone] Dec, [facility] [id number] [place] [address] [id number]- [phone] Dec, [place] [id number] [place] [address] [id number]- [phone] Dec, [place] [id number] [place] [address] [id number] Dec, Type 2 diabetes mellitus with hyperglycemia E11.65 ; retirement 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 and Lumbago M54.5 [facility] [id number] [place] [address] 12720- 3417 Dec, [facility] [id number] [place] [address] 57873- 0579 Dec, [facility] [id number] [place] [address] 67954- 3821 Dec, [facility] [id number] [place] [address] 93151 -5283 Dec, Pain of left leg M79.605 and Pain in right leg M79.604 [facility] [id number] [place] [address] 01794- 8582 Dec, [facility] [id number] [place] [address] 86200- 5078 Dec, Type 2 diabetes mellitus with hyperglycemia E11.65 [facility] [address] 55384- 3162 Dec, [facility] [id number] [place] [address] 42505- 7232 Dec, Type 2 diabetes mellitus with hyperglycemia E11.65 ; retirement 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 ; Vagina, candidiasis B37.3 and Other chronic pain G89.29 [facility] [id number] [place] [address] 72521- 5116 Nov, Panic disorder with agoraphobia F40.01 [facility] [id number] [place] [address] 80964- 4719 Nov, [facility] [address] 09695- 7362 Nov, [facility] [id number] [place] [address] 64634- 2316 Nov, Hypoglycemia E16.2 [facility] [address] 34924- 9927 Nov, [facility] [id number] [place] [address] 52586- 3982 Nov, [facility] [id number] [place] [address] 83013- 0772 Nov, [facility] [id number] [place] [address] 17182- 4822 Nov, Type 2 diabetes mellitus with hyperglycemia E11.65 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 [facility] [id number] [place] [address] 33797- 5044 Nov, Panic disorder with agoraphobia F40.01 ; Bipolar 2 disorder F31.81 ; Chronic post-traumatic stress disorder (PTSD) F43.12 and Epilepsy G40.909 [facility] [id number] [place] [address] 58613- 4986 Nov, Panic disorder with agoraphobia F40.01 [facility] [id number] [place] [address] 82626- 9149 16 Oct, 2016 [facility] [id number] [place] [address] 40271- 2550 Oct, [facility] [id number] [place] [address] 35728- 0750 Oct, Bipolar 2 disorder F31.81 ; Panic disorder with agoraphobia F40.01 and Mood disorder F39 [facility] [id number] [place] [address] 81319- 1974 Oct, Diabetes E11.9 ; Type 2 diabetes mellitus with hyperglycemia E11.65 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 [facility] [id number] [place] [address] 49563- 2403 Oct, [facility] [id number] [place] [address] 85011- 9922 Sep, [facility] [id number] [place] [address] 35157- 3721 Sep, Bipolar 2 disorder F31.81 and Mood disorder F39 [facility] [id number] [place] [address] 78994- 7265 Sep, [facility] [id number] [place] [address] 54835- 4971 Sep, Uncontrolled type 2 diabetes mellitus without complication, without long-term 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 E11.65 [facility] [id number] [place] [address] 42349- 5214 Sep, [facility] [id number] [place] [address] 92243- 1387 Sep, [facility] [id number] [place] [address] 39230- 6575 Sep, [facility] [id number] [place] [address] 30390- 7733 Sep, [facility] [id number] [place] [address] 81768- 4732 Sep, Bipolar 2 disorder F31.81 ; Chronic post-traumatic stress disorder (PTSD) F43.12 ; Panic disorder with agoraphobia F40.01 and Epilepsy G40.909 [facility] [id number] [place] [address] 81370- 2947 Sep, Bipolar 2 disorder F31.81 ; PTSD (post-traumatic stress disorder) F43.10 and Panic disorder with agoraphobia F40.01 [facility] [id number] [place] [address] 46488- 7541 Sep, [facility] [address] 72022- 4300 Aug, History of seizures Z87.898 ; Panic disorder with agoraphobia F40.01 and Bipolar 2 disorder F31.81 [facility] [address] 04007- 2351 Aug, [facility] [id number] [place] [address] 64620- 7202 Aug, [facility] [address] 04474- 4015 Aug, [facility] [id number] [place] [address] 56600- 7278 Aug, [facility] [address] 93974- 9375 Aug, [facility] [id number] [place] [address] 10537- 9772 Aug, [facility] [address] 17561- 6472 Aug, Hypoglycemia E16.2 and Bilateral impacted cerumen H61.23 [facility] [id number] [place] [address] 36475- 5897 Aug, [facility] [address] 69239- 5719 Jul, [facility] [id number] [place] [address] 81849- 1311 Jul, [facility] [id number] [place] [address] 15854- 5062 Jul, Bipolar 2 disorder F31.81 ; Panic disorder with agoraphobia F40.01 ; PTSD (post-traumatic stress disorder) F43.10 and Epilepsy G40.909 [facility] [id number] [place] [address] 16901- 3439 Jul, [facility] [id number] [place] [address] 24754- 5282 Jul, Type 2 diabetes mellitus without complications E11.9 and Coughing R05 [facility] [id number] [place] [address] 33304- 8561 Jul, [facility] [id number] [place] [address] 92694- 4418 Jun, [facility] [id number] [place] [address] 79730- 6214 Jun, Bipolar 2 disorder F31.81 ; PTSD (post-traumatic stress disorder) F43.10 and Panic disorder with agoraphobia F40.01 [facility] [id number] [place] [address] 33163- 5341 Jun, [facility] [id number] [place] [address] 52976- 9304 Jun, [facility] [id number] [place] [address] 21523- 1605 Jun, [facility] [id number] [place] [address] 82394- 1172 Jun, Type 2 diabetes mellitus without complications E11.9 and COPD (chronic obstructive pulmonary disease) J44.9 [facility] [id number] [place] [address] [id number] May, Dental examination Z01.20 and Dental caries K02.9 [facility] [id number] [place] [address] 66325- 4117 May, Bipolar 2 disorder F31.81 ; PTSD (post-traumatic stress disorder) F43.10 and Panic disorder with agoraphobia F40.01 [facility] [id number] [place] [address] 17331- 9570 May, Lumbago with sciatica, right side M54.41 ; Other chronic pain G89.29 and Uncontrolled type 2 diabetes mellitus without complication, without long-term 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 E11.65 [facility] [address] 93493- 2866 May, Chronic bronchitis, unspecified chronic bronchitis type J42 [facility] [id number] [place] [address] 81696- 3390 May, [facility] [address] 64594- 4657 May, [facility] [id number] [place] [address] 36385- 2368 May, Chest pain, unspecified type R07.9 ; Tobacco use Z72.0 ; Type 2 diabetes mellitus without complications E11.9 ; Essential hypertension I10 ; Hyperlipidemia, unspecified hyperlipidemia type E78.5 ; Obesity (BMI 30- 39.9) E66.9 ; History of hypothyroidism Z86.39 ; Chronic obstructive pulmonary disease, unspecified COPD type J44.9 ; Anxiety F41.9 ; Bilateral claudication of lower limb I73.9 and Bipolar 2 disorder F31.81 [facility] [id number] [place] [address] 43489- 0891 May, Bipolar 2 disorder F31.81 ; Panic disorder with agoraphobia F40.01 and Tobacco abuse Z72.0 [facility] [id number] [place] [address] 09710- 2852 Apr, [facility] [address] 64668- 9315 Apr, [facility] [id number] [place] [address] 44943- 3142 Apr, [facility] [id number] [place] [address] 89440- 4673 Apr, Bipolar 2 disorder F31.81 ; Panic disorder with agoraphobia F40.01 and PTSD (post-traumatic stress disorder) F43.10 [facility] [id number] [place] [address] 69921- 8515 Apr, Chronic bronchitis, unspecified chronic bronchitis type J42 ; Cervical neuritis M54.12 and Thoracic neuritis M54.14 [facility] [id number] [place] [address] 17421- 9729 Apr, [facility] [id number] [place] [address] 15210- 3168 Apr, Cervicalgia M54.2 [facility] [id number] [place] [address] 22356- 4348 Apr, Bipolar 2 disorder F31.81 ; Panic disorder with agoraphobia F40.01 and PTSD (post-traumatic stress disorder) F43.10 [facility] [id number] [place] [address] 76808 -9294 Apr, [facility] [id number] [place] [address] 24677 -7632 09 Apr, 2016 Cough R05 and Tobacco dependence F17.200 [facility] [id number] [place] [address] 09890- 1645 Apr, [facility] [id number] [place] [address] 41290- 0566 Apr, [facility] [address] [place] [address] 72673- 7313 March, Bipolar 2 disorder F31.81 ; Panic disorder with agoraphobia F40.01 and Generalized anxiety disorder F41.1 [facility] [id number] [place] [address] 83651- 4215 March, Closed displaced fracture of fifth metatarsal bone of right foot with routine healing, subsequent encounter S92.351D [facility] [id number] [place] [address] 09165- 5375 March, Bronchitis J40 [facility] [address] 82069- 8295 March, [facility] [address] 60678- 4257 March, [facility] [address] 09984- 7070 March, Foot pain, right M79.671 ; Cervicalgia M54.2 and 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 mellitus without complication, unspecified buttermaker insulin use status E11.9 [facility] [address] 91635- 6158 March, Fracture of fifth metatarsal bone of right foot S92.351A [facility] [id number] [place] [address] 54166- 3026 March, [facility] [id number] [place] [address] 45453- 2391 Jan, Fracture of fifth metatarsal bone of right foot S92.351A [facility] [id number] [place] [address] 44717- 8441 Jan, Bipolar 2 disorder F31.81 ; PTSD (post-traumatic stress disorder) F43.10 ; Panic disorder with agoraphobia F40.01 and Epilepsy G40.909 [facility] [id number] [place] [address] 82584- 2335 Jan, History of NC (myocardial infarction) I25.2 and History of high cholesterol Z86.39 [facility] [id number] [place] [address] 72518- 6512 Jan, Bipolar 2 disorder F31.81 ; Panic disorder with agoraphobia F40.01 ; Tobacco abuse Z72.0 and PTSD (post-traumatic stress disorder) F43.10 [id number] [place] [address] 72481- 9653 Jan, Fracture of fifth metatarsal bone of right foot S92.351A [address] 15717- 3155 Jan, [facility] [address] 65538- 2161 Jan, History of high cholesterol Z86.[address] 95525- 1985 Jan, History of NC (myocardial infarction) I25.[address] 17251- 5091 Jan, [address] 44347- 1716 Dec, Back pain M54.9 ; Diabetes E11.9 ; Right knee pain M25.561 and Chest pain R07.[address] 34717- 2498 Dec, [address] 26696- 8978 Dec, [address] 12199- 8488 Dec, Cervicalgia M54.[address] 24079- 0391 Dec, Bipolar 2 disorder F31.81 ; PTSD (post-traumatic stress disorder) F43.10 ; Panic disorder with agoraphobia F40.01 and Epilepsy G40.909 [place] [id number] [place] [address] 39235- 1960 08 Jan, 2016 Bipolar 2 disorder F31.81 ; PTSD (post-traumatic stress disorder) F43.10 and Panic disorder with agoraphobia F40.01 [facility] [address] 38804- 7796 Dec, Diabetes E11.9 [facility] [id number] [place] [address] 24490- 8915 Dec, [facility] [address] 93043- 1438 Dec, Other chronic pain G89.29 ; Hepatitis C B19.20 and History of seizures Z87.898 [facility] [address] 84892- 3682 24 Dec, 2015 [facility] [address] 01806- 1498 Dec, Bipolar 2 disorder F31.81 and Other chronic pain G89.29 [facility] [address] 95992- 3681 Dec, Cervicalgia M54.2 and Diabetes E11.9 [facility] [address] 71189- 2705 Dec, [facility] [id number] [place] [address] 78432- 5136 Dec, [facility] [id number] [place] [address] 93949- 7241 Dec, [facility] [id number] [place] [address] 18078- 7952 Dec, [facility] [address] 53750- 3132 Dec, Type 2 diabetes mellitus without complications E11.9 [facility] [id number] [place] [address] 00706- 7211 10 Dec, 2015 [facility] [address] 50928- 1094 09 Dec, 2015 History of seizures Z87.898 and Hepatitis C B19.20 [facility] [address] 45451- 7203 Dec, Hepatitis C B19.20 [facility] [address] 32035- 0176 Dec, [facility] [address] 71504- 5375 Dec, Cervicalgia M54.2 ; COPD (chronic obstructive pulmonary disease) J44.9 and Hepatitis C B19.20 [facility] [address] 75483- 2741 Dec, Bipolar 2 disorder F31.81 ; History of hypertension Z86.79 ; History of anxiety Z86.59 ; Panic disorder with agoraphobia F40.01 and Epilepsy G40.909 [facility] [address] 13091- 6273 Nov, [address] 05582- 3112 Nov, [address] 18639- 4271 Nov, History of seizures Z87.898 ; OAB (overactive bladder) N32.81 ; Lumbago M54.5 ; Other chronic pain G89.29 ; Cervicalgia M54.2 ; Tobacco abuse Z72.0 ; Tobacco abuse counseling Z71.6 and Impaired fasting glucose R73.01 [facility] [address] 60157- 8763 Nov, Bipolar 2 disorder F31.81 ; PTSD (post-traumatic stress disorder) F43.10 ; History of anxiety Z86.59 ; History of COPD Z87.09 ; Panic disorder with agoraphobia F40.01 and Moderate depressed bipolar I disorder F31.32 [facility] [address] [place] [address]- 4203 12 Nov, 2015 PTSD (post-traumatic stress disorder) F43.10 [facility] [id number] [place] [address] [id number] 11 Nov, 2015 Dental examination Z01.20 and Dental caries K02.9 [facility] [id number] [place] [address] 08038- 8353 08 Nov, 2015 History of hypertension Z86.79 ; History of hypothyroidism Z86.39 ; History of high cholesterol Z86.39 ; History of COPD Z87.09 and Overactive bladder N32.81 [facility] [id number] [place] [address] 07938- 6854 Nov, Bipolar 2 disorder F31.81 and PTSD (post-traumatic stress disorder) F43.10 [facility] [id number] [place] [address] 92017- 8078 Nov, PTSD (post-traumatic stress disorder) F43.10 ; Panic disorder with agoraphobia F40.01 ; Epilepsy G40.909 and Moderate depressed bipolar I disorder F31.32 [facility] [id number] [place] [address] 48509- 3105 Nov, [facility] [id number] [place] [address] 08869- 3155 Nov, [facility] [id number] [place] [address] 33511- 2203 Oct, [facility] [id number] [place] [address] 14216- 0020 Oct, Generalized anxiety disorder F41.1 ; Major depression, recurrent F33.9 and PTSD (post-traumatic stress disorder) F43.10 [facility] [id number] [place] [address] 86211- 1762 Oct, Elevated fasting glucose R73.01 [facility] [id number] [place] [address] 10434- 6900 Oct, Elevated fasting glucose R73.01 [facility] [address] [address]- 0872 17 Oct, 2015 History of COPD Z87.09 [place] [address] [address]- 9171 15 Oct, 2015 General medical exam Z00.00 ; History of hypertension Z86.79 ; History of hypothyroidism Z86.39 ; History of hepatitis Z86.19 ; History of high cholesterol Z86.39 and History of seizures Z87.898 [facility] [address] [address]- 2683 10 Oct, 2015 General medical exam Z00.00 ; History of hypertension Z86.79 ; History of hypothyroidism Z86.39 ; Bipolar 2 disorder F31.81 ; PTSD ( post-traumatic stress disorder) F43.10 ; History of hepatitis Z86.19 ; History of high cholesterol Z86.39 ; History of anxiety Z86.59 ; History of seizures Z87.898 ; History of NC (myocardial infarction) I25.2 and History of COPD Z87.09 [facility] [address] [address]- 8681 Oct, Generalized anxiety disorder F41.1 ; Depression F32.9 and PTSD (post-traumatic stress disorder) F43.10 [facility] [address] [address]- 6487 Jan, [facility] [facility] [address] [address]- 3018 Jan, [facility] [id number] [address]- 9169 Jun, [place] [address] [place] [id number] Jun, [facility] [id number] [place] [address] 68450- 8715 May, [facility] [address] [address]- 8427 May, [facility] [address] [place] [id number] May, [facility] [address] [facility] [id number] [id number] 2256 May, [facility] [address] [place] [id number] May, [facility] [address] [facility] [id number] [place] [address]- 3441 May, IMMUNIZATIONS No Known Immunizations SOCIAL HISTORY Never Assessed REASON FOR VISIT xanax refill 09/30/2018 PLAN OF CARE VITAL SIGNS MEDICATIONS Medication Instructions Dosage Frequency Start Date End Date Duration Status Xanax 2 MG Orally 3 times a day and 1/2 additional tablet once daily for extreme panic 1 tablet 30 days Active RESULTS No Results PROCEDURES No Known procedures INSTRUCTIONS MEDICATIONS ADMINISTERED No Known Medications MEDICAL (GENERAL) HISTORY Type Description Date Medical History Hypothyroidism Medical History High cholesterol Medical History Hypertension Medical History Brain seizure Medical History Asthma Medical History COPD Medical History Hep C -2004 Medical History NC x 2 last in 2009 Medical History PTSD (post-traumatic stress disorder) Medical History Colon Cancer 2016 Medical History diabites II Surgical History tonsillectomy 1985 Surgical History partial hysterectomy 2004 Surgical History appendectomy 2004 Hospitalization History Surgery(s) only Hospitalization History pneumonia x3 days Hospitalization History Heart cath with stint 05/15/2016 Hospitalization History Diverticulitis, N/V[facility] 01/28/17
--- OUTSIDE RECORDS SUMMARY | 2019-01-26 07:07 | XMS REPORT ---
Author Author GERARDO KISER [facility] Address [address] [place] [address] Care Team Providers Care Datapower Developer Name Role Phone MARGIGERARDO Unavailable PROBLEMS Type Condition ICD9-CM Code [id number] Code Onset Dates Condition Status SNOMED Code Problem Other chronic pain G89.29 Active 25460330 Problem OAB (overactive bladder) N32.81 Active 791463741 Problem Tobacco abuse Z72.0 Active 27459547 Problem Cervicalgia M54.2 Active 51411299 Problem Lumbago M54.5 Active 685931556 Problem Hepatitis C B19.20 Active 27515302 Problem COPD (chronic obstructive pulmonary disease) J44.9 Active 83460978 Problem Diabetes E11.9 Active 61918635 Problem Type 2 diabetes mellitus without complications E11.9 Active 945237850 Problem Stress incontinence of urine N39.3 Active 93802677 Problem Bilateral claudication of lower limb I73.9 Active 597828985 Problem Seasonal allergic rhinitis due to other allergic trigger J30.89 Active 547196190 Problem Hypoglycemia E16.2 Active 753549070 Problem Hypertension, unspecified type I10 Active 60897101 Problem Bipolar affective disorder, currently depressed, mild F31.31 Active 695278294 Problem Hyperlipidemia, unspecified hyperlipidemia type E78.5 Active 84696583 Problem Fallen bladder N81.10 Active 898628355 Problem Chronic tension-type headache, not intractable G44.229 Active 482513389 Problem hot box checker 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 Active 735379078 Problem Type 2 diabetes mellitus with hyperglycemia E11.65 Active 401836383 Problem Bipolar 2 disorder F31.81 Active 59545269 Problem Chronic post-traumatic stress disorder (PTSD) F43.12 Active 775499836 Problem History of hypothyroidism Z86.39 Active 876904564 Problem Stress incontinence N39.3 Active 50497042 Problem El's esophageal ulceration K22.10 Active 369836391 Problem 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 mellitus without complication, without long -term 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 E11.9 Active 711377351 Problem Irritable bowel syndrome with diarrhea K58.0 Active 269311495 Problem Panic disorder with agoraphobia F40.01 Active 10435467 Problem Type 2 diabetes mellitus with hyperglycemia E11.65 Active 166867050 Problem Epilepsy G40.909 Active 94110015 Problem Hypertension, benign I10 Active 98111065 Problem History of NV (myocardial infarction) I25.2 Active 920970305 Problem Mood disorder F39 Active 10589802 Problem History of hypertension Z86.79 Active 895774952 Problem Uncontrolled type 2 diabetes mellitus without complication, without long-term 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 E11.65 Active 100613368 Problem History of high cholesterol Z86.39 Active 569230336 Problem Bipolar I disorder with mood-congruent psychotic features F31.9 Active 044701064 Problem History of seizures Z87.898 Active 923689890 Problem Bipolar I disorder with duy F31.10 Active 75996319 Problem Primary insomnia F51.01 Active 5039701 Problem Gastritis and duodenitis K29.90 Active 593124264 ALLERGIES No Information ENCOUNTERS Encounter Location Date Diagnosis [facility] [id number] [place] [address] 67584- 5566 17 Nov, 2018 [facility] [id number] [place] [address] 21286- 2783 31 Aug, 2018 Type 2 diabetes mellitus without complications E11.9 [facility] [id number] [place] [address] 57131- 6143 30 Aug, 2018 [facility] [id number] [place] [address] 06950- 6699 18 Aug, 2018 Type 2 diabetes mellitus without complications E11.9 [facility] [id number] [place] [address] 93923- 9277 12 Aug, 2018 [facility] [id number] [place] [address] 38049- 4077 Aug, [facility] [id number] [place] [address] 67351- 0812 Aug, Bipolar 2 disorder F31.81 ; Chronic post-traumatic stress disorder (PTSD) F43.12 and Panic disorder with agoraphobia F40.01 [facility] [id number] [place] [address] 16720- 0661 Aug, [facility] [id number] [place] [address] 02543- 1868 Jul, [facility] [id number] [place] [address] 87600- 6301 Jul, Type 2 diabetes mellitus without complications E11.9 ; Fallen bladder N81.10 ; Stress incontinence of urine N39.3 ; Gall bladder disease K82.9 ; Periodontal abscess K05.219 ; Diarrhea, unspecified R19.7 ; Nausea with vomiting, unspecified R11.2 and Chronic tension-type headache, not intractable G44.229 [facility] [id number] [place] [address] 43559- 7160 Jul, [facility] [id number] [place] [address] 60092- 8699 Jul, [facility] [id number] [place] [address] 14637- 8077 Jul, [facility] [id number] [place] [address] 88347- 1520 Jul, Bipolar 2 disorder F31.81 ; Panic disorder with agoraphobia F40.01 and Chronic post-traumatic stress disorder (PTSD) F43.12 [facility] [id number] [place] [address] 90866- 3007 Jun, [facility] [id number] [place] [address] 26654- 2730 Jun, [facility] [id number] [place] [address] 43891- 2228 Jun, Lumbago M54.5 [facility] [id number] [place] [address] 36810- 3755 Jun, Type 2 diabetes mellitus with hyperglycemia E11.65 [facility] [id number] [place] [address] 42391- 8827 Jun, [facility] [id number] [place] [address] 50813- 8378 Jun, Type 2 diabetes mellitus with hyperglycemia E11.65 ; El 's esophageal ulceration K22.10 and Lumbago M54.5 [facility] [id number] [place] [address] 19951- 2824 Jun, Type 2 diabetes mellitus with hyperglycemia E11.65 [facility] [id number] [place] [address] 63424- 2727 Jun, [facility] [id number] [place] [address] 65576- 2692 Jun, [facility] [id number] [place] [address] 51230- 2592 Jun, Bipolar affective disorder, currently depressed, mild F31.31 ; Chronic post-traumatic stress disorder (PTSD) F43.12 and Panic disorder with agoraphobia F40.01 [facility] [id number] [place] [address] 30540- 1922 Jun, [facility] [id number] [place] [address] 12648- 1546 Jun, [facility] [address] [place] [address] 63126- 7941 Jun, Type 2 diabetes mellitus with hyperglycemia E11.65 [facility] [id number] [place] [address] 19734- 0625 Jun, Uncontrolled type 2 diabetes mellitus with hyperglycemia E11.65 [facility] [id number] [place] [address] 47948- 1038 Jun, [facility] [address] [place] [address] 93657- 5303 May, Lumbago M54.5 [facility] [id number] [place] [address] [id number] May, [facility] [id number] [address]- 8215 May, [facility] [address] [place] [address] 35876- 1199 May, [facility] [address] [address]- 1558 May, [facility] [id number] [place] [address] 33041- 9981 May, [facility] [id number] [place] [address], [place] [address]- 5223 May, [facility] [address] [place] [address] 16764- 0143 May, [facility] [address] [place] [address] 74058- 5061 May, Lumbago M54.5 [facility] [address] [address]- 6749 May, [facility] [id number] [place] [address] 07622- [address] Apr, [address] of the chest R93.8 [facility] [address] [address]- 2936 Apr, Bipolar 2 disorder F31.81 ; Chronic post-traumatic stress disorder (PTSD) F43.12 and Panic disorder with agoraphobia F40.01 [facility] [address] [address]- [address] Apr, [address] of the chest R93.8 [facility] [address] [address]- [address] Apr, [address] of the chest R93.8 [facility] [address] [address]- 1430 Apr, [facility] [id number] [place] [address] 87330- 9133 11 Apr, 2018 Type 2 diabetes mellitus with hyperglycemia E11.65 [address] 58478- 9742 Apr, 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 mellitus without complication, without long-term 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 E11.9 ; Watery eyes H04.203 ; Low back pain M54.5 ; Other chronic pain G89.29 ; Chronic tension-type headache, not intractable G44.229 ; Uncontrolled type 2 diabetes mellitus without complication , without long-term 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 E11.65 and Bronchitis J40 [place] 72245- 1886 Apr, [place] [id number] [place] [address] 31809- 8151 Apr, Lumbago M54.5 [facility] [facility] [id number] [place] [address] 01315- 3232 March, [facility] [id number] [place] [address] 81140 -7024 March, Cough R05 ; Pneumonia due to infectious organism, unspecified laterality, unspecified part of lung J18.9 and Non-intractable vomiting with nausea, unspecified vomiting type R11.2 [place] [id number] [place] [address] 72849- 5029 March, Bronchitis J40 [place] [id number] [place] [address] 85584- 5133 March, [place] [id number] [place] [address] 56942- 0974 March, El's esophageal ulceration K22.10 and Type 2 diabetes mellitus with hyperglycemia E11.65 [place] [id number] [place] [address] 55562- 6047 March, Panic disorder with agoraphobia F40.01 ; Chronic post- traumatic stress disorder (PTSD) F43.12 and Bipolar 2 disorder F31.81 [facility] [address] [address]- 6200 March, Type 2 diabetes mellitus with hyperglycemia E11.65 [facility] [address] [place] [address] 50554- 8393 March, [facility] [id number] [place] [address] 12670- 3055 March, Lumbago M54.5 [facility] [address] [place] [address] 36717- 8427 March, [facility] [id number] [place] [address] 38365- 3208 March, Irritable bowel syndrome with diarrhea K58.0 ; Primary insomnia F51.01 ; Type 2 diabetes mellitus with hyperglycemia E11.65 and long-term 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 [facility] [id number] [place] [address] 50612- 5280 March, [facility] [address] [place] [address] 14525- 2040 Jan, [facility] [id number] [place] [address] 71550- 4458 Jan, [facility] [address] [place] [address] 34870- 6767 Jan, [facility] [address] [place] [address] 85454- 4404 Jan, [facility] [address] [place] [address] 85694- 6978 Jan, Dizziness R42 [facility] [address] [place] [address] 72961- 1705 Jan, Bipolar affective disorder, currently depressed, mild F31.31 ; Panic disorder with agoraphobia F40.01 and Chronic post-traumatic stress disorder (PTSD) F43.12 [facility] [id number] [place] [address] 13813- 9883 17 Jan, 2018 Dizziness R42 [address] [place] [id number] [place] [address] 69458- 3575 11 Jan, 2018 Chest pain, unspecified type R07.9 ; Exertional dyspnea R06.09 ; Hypertension, unspecified type I10 and Hyperlipidemia, unspecified hyperlipidemia type E78.5 [address] [place] [id number] [place] [address] 08753- 1530 Jan, [address] [place] [id number] [place] [address] 11255- 1182 Jan, Lumbago M54.5 [address] 58082- 9644 04 Jan, 2018 El's esophageal ulceration K22.10 ; Blister (nonthermal ) of oral cavity, initial encounter S00.522A ; Local infection of the skin and subcutaneous tissue, unspecified L08.9 ; Type 2 diabetes mellitus with hyperglycemia E11.65 ; hot box checker 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 and Stress incontinence N39.3 [address] [id number] [place] [address] 28881- 2750 27 Dec, 2017 [place] [id number] [place] [address] 83678- 5125 27 Dec, 2017 [address] [place] [address] 14799- 0692 Dec, [facility] [id number] [place] [address] [phone] 16 Dec, 2017 Dental examination Z01.20 [address] [place] [id number] [place] [address] 35395- 9291 15 Dec, 2017 Acute pain of right knee M25.561 [address] [place] [id number] [place] [address] 68797- 1754 14 Dec, 2017 [address] [place] [id number] [place] [address] 94614- 3856 Dec, [place] [id number] [place] [address] 40280- 6542 14 Dec, 2017 Lumbago M54.5 ; Acute pain of right knee M25.561 and Seasonal allergic rhinitis due to other allergic trigger J30.89 [facility] [id number] [place] [address] 63772- 0100 Dec, Type 2 diabetes mellitus with hyperglycemia E11.65 [address] 88369- 8512 Dec, [place] [id number] [place] [address] 81003- 0691 Dec, [address] [place] 46141- 0491 23 Dec, 2017 [address] [place] [address] 35377- 3816 Dec, [place] [id number] [place] [address] 73876- 1266 Dec, Chronic post-traumatic stress disorder (PTSD) F43.12 and Panic disorder with agoraphobia F40.01 [address] [id number] [place] [address] 28722- 3819 13 Dec, 2017 Low back pain M54.5 [address] [id number] [place] [address] 43269- 4769 12 Dec, 2017 Type 2 diabetes mellitus with hyperglycemia E11.65 ; hot box checker 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 ; Low back pain M54.5 ; Other chronic pain G89.29 and Encounter for therapeutic drug level monitoring Z51.81 [address] [address] 54909- 8463 09 Dec, 2017 Coughing R05 [place] [id number] [place] [address] 34131- 6952 Dec, [facility] [address] [id number] Dec, Dental examination Z01.20 [place] [id number] [place] [address] 98034- 2347 Nov, Type 2 diabetes mellitus without complications E11.9 and Encounter for therapeutic drug level monitoring Z51.81 [address] [id number] [place] [address] 53591- 6935 Nov, [place] [id number] [place] [address] 29219- 9025 Oct, Type 2 diabetes mellitus without complications E11.9 [place] [id number] [place] [address] 15980- 9911 Oct, Type 2 diabetes mellitus with hyperglycemia E11.65 [place] [id number] [place] [address] 37782- 9720 Aug, Type 2 diabetes mellitus without complications E11.9 [place] [id number] [place] [address] 81706- 6701 Aug, Type 2 diabetes mellitus without complications E11.9 ; Hypoglycemia E16.2 ; Lumbago M54.5 ; Stress incontinence of urine N39.3 and History of NV (myocardial infarction) I25.2 [address] [place] [address] 37807- 2375 Jun, [address] [place] [address] 46817- 8283 May, [place] [id number] [place] [address] 24089- 5450 Apr, Panic disorder with agoraphobia F40.01 [place] [id number] [place] [address] 90179- 3644 Apr, Panic disorder with agoraphobia F40.01 [place] [id number] [place] [address] 35808- 5417 Apr, [place] [id number] [place] [address] 31075- 1408 March, Other chronic pain G89.29 [facility] [id number] [address]- 2341 March, [facility] [id number] [place] [address] 94516- 0050 March, [facility] [id number] [place] [address] 26749- 3199 March, [facility] [id number] [place] [address] 42902- 8225 March, [facility] [id number] [place] [address] 07401- 3384 March, Type 2 diabetes mellitus without complications E11.9 [place] [id number] [place] [address] 79665- 4108 March, Diarrhea, unspecified type R19.7 [facility] [id number] [place] [address] 81211- 0825 March, Bipolar 2 disorder F31.81 ; Chronic post-traumatic stress disorder (PTSD) F43.12 and Type 2 diabetes mellitus with hyperglycemia E11.65 [facility] [address] [address]- 2881 March, [facility] [address], [place] [address]- 2991 March, [facility] [id number] [place] [address] 99565- 9324 March, Hypertension, benign I10 ; Type 2 diabetes mellitus with hyperglycemia E11.65 ; Hepatitis C B19.20 ; Gastritis and duodenitis K29.90 and Dysuria R30.0 [facility] [address], [place] [address]- 1983 March, Hypertension, benign I10 ; Type 2 diabetes mellitus with hyperglycemia E11.65 ; Hepatitis C B19.20 ; Gastritis and duodenitis K29.90 and Dysuria R30.0 [place] [address] [address]- 4566 March, Panic disorder with agoraphobia F40.01 ; Chronic post- traumatic stress disorder (PTSD) F43.12 ; Epilepsy G40.909 and Bipolar I disorder with mood-congruent psychotic features F31.9 [facility] [address], [place] [address]- 3136 March, [facility] [id number] [place] [address] 76226 2544 March, Type 2 diabetes mellitus with hyperglycemia E11.65 [facility] [id number] [place] [address] 57172- 1629 18 Jan, 2017 Bipolar I disorder with duy F31.10 [facility] [id number] [place] [address] 10844- 9766 Jan, Bipolar 2 disorder F31.81 ; Chronic post-traumatic stress disorder (PTSD) F43.12 and Type 2 diabetes mellitus with hyperglycemia E11.65 [facility] [id number] [place] [address] 39933- 9705 Jan, [facility] [id number] [place] [address] 24409- 6496 Jan, [facility] [address] [place] [address] 12063- 0082 14 Jan, 2017 Panic disorder with agoraphobia F40.01 [facility] [address] [place] [address] 74230- 7659 Jan, Panic disorder with agoraphobia F40.01 ; Bipolar I disorder with mood-congruent psychotic features F31.9 ; Chronic post-traumatic stress disorder (PTSD) F43.12 and Epilepsy G40.909 [facility] [address] [address]- 7771 Jan, [facility] [id number] [place] [address] 19394- 3602 Jan, [facility] [address], [place] [address]- 6994 10 Jan, 2017 Type 2 diabetes mellitus without complications E11.9 and Hypoglycemia E16.2 [place] [id number] [place] [address] 62734- 4924 07 Jan, 2017 Type 2 diabetes mellitus without complications E11.9 ; Primary insomnia F51.01 and Hypertension, benign I10 [place] [id number] [place] [address] 41560- 6645 06 Jan, 2017 [facility] [id number] [place] [address] [id number] Jan, [place] [id number] [place] [address] 71976- 1685 31 Dec, 2016 Type 2 diabetes mellitus with hyperglycemia E11.65 [place] [id number] [place] [address] 83004- 0938 Dec, [place] [id number] [place] [address] [phone]- 5069 Dec, Bipolar 2 disorder F31.81 ; Panic disorder with agoraphobia F40.01 ; Chronic post-traumatic stress disorder (PTSD) F43.12 and Epilepsy G40.909 [place] [id number] [place] [address] [phone]- 9941 Dec, [facility] [address] [place] [id number] [place] [address] 47209- 5767 14 Dec, 2016 [facility] ([facility] [address] [place] [id number] [place] [address] 71517- 1038 09 Dec, 2016 Bipolar 2 disorder F31.81 ; Panic disorder with agoraphobia F40.01 ; Chronic post-traumatic stress disorder (PTSD) F43.12 and Epilepsy G40.909 [facility] ([facility] [id number] [place] [address] 76381- 9372 09 Dec, 2016 [facility] ([facility] [address] [place] [id number] [place] [address] [phone]- [phone] Dec, [place] [address] 69016- 7701 Dec, [place] [address] 91299- 4338 Dec, Type 2 diabetes mellitus with hyperglycemia E11.65 ; hot box checker 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 and Lumbago M54.5 [place] [address] 78150- 6988 Dec, [place] [address] 89670- 1606 Dec, [place] [address] 39739- 5935 Dec, [facility] [address] 8[address]64 -8745 Dec, Pain of left leg M79.605 and Pain in right leg M79.604 [place] [address] 02563- 9487 Dec, [place] [address] 44263- 6049 Dec, Type 2 diabetes mellitus with hyperglycemia E11.65 [place] [address] 18608- 3346 Dec, [place] [address] 34461- 6312 Dec, Type 2 diabetes mellitus with hyperglycemia E11.65 ; long-term 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 ; Vagina, candidiasis B37.3 and Other chronic pain G89.29 [place] [address] 42485- 8622 Nov, Panic disorder with agoraphobia F40.01 [place] [address] 44447- 2948 Nov, [facility] [address] [address] Nov, [facility] [address] [place] [id number] [place] [address] 51456- 9404 Nov, Hypoglycemia E16.2 [facility] [address] [place] [id number] [place] [address] 86433- 6280 Nov, [facility] [address] [place] [id number] [place] [address] 53014- 0554 Nov, [facility] [address] [place] [address] 79859- 0620 Nov, [place] [address] [place] [id number] [place] [address] 66365- 4485 Nov, Type 2 diabetes mellitus with hyperglycemia E11.65 and hot box checker 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 [place] [address] [place] [id number] [place] [address] 05407- 9700 Nov, Panic disorder with agoraphobia F40.01 ; Bipolar 2 disorder F31.81 ; Chronic post-traumatic stress disorder (PTSD) F43.12 and Epilepsy G40.909 [place] [address] [place] [address] 58270- 3353 Nov, Panic disorder with agoraphobia F40.01 [place] [address] [address] Oct, [facility] [address] [address] 0660 Oct, [facility] [address] [place] [id number] [place] [address] 63918- 1897 Oct, Bipolar 2 disorder F31.81 ; Panic disorder with agoraphobia F40.01 and Mood disorder F39 [place] [address] [address] 7091 Oct, Diabetes E11.9 ; Type 2 diabetes mellitus with hyperglycemia E11.65 and long-term 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 [facility] [address] [address] 4711 Oct, [facility] [id number] [place] [address] 61300- 3729 Sep, [facility] [address] [place] [id number] [place] [address] 65250- 6980 Sep, Bipolar 2 disorder F31.81 and Mood disorder F39 [facility] [address] [id number] [place] [address] 07704- 2226 Sep, [facility] [address] [place] [id number] [place] [address] 37837- 7519 Sep, Uncontrolled type 2 diabetes mellitus without complication, without long-term 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 E11.65 [facility] [address] [place] [id number] [place] [address] 05943- 2844 Sep, [facility] [id number] [place] [address] 83363- 8640 Sep, [facility] [address] [id number] [place] [address] 98096- 9114 Sep, [facility] [id number] [place] [address] 83043- 2713 Sep, [facility] [address] [place] [address] 88529- 3164 Sep, Bipolar 2 disorder F31.81 ; Chronic post-traumatic stress disorder (PTSD) F43.12 ; Panic disorder with agoraphobia F40.01 and Epilepsy G40.909 [facility] [address] [place] [address] 07500- 3723 11 Sep, 2016 Bipolar 2 disorder F31.81 ; PTSD (post-traumatic stress disorder) F43.10 and Panic disorder with agoraphobia F40.01 [facility] [address] [place] [address] 96832- 8643 Sep, [facility] [address] [place] [address] 95628- 4800 Aug, History of seizures Z87.898 ; Panic disorder with agoraphobia F40.01 and Bipolar 2 disorder F31.81 [facility] [id number] [address]- 2306 19 Aug, 2016 [facility] [address] [id number] [place] [address] 94901- 8306 17 Aug, 2016 [facility] [id number] [place] [address] 72273- 0735 Aug, [facility] [address] [id number] [place] [address] 89056- 5725 Aug, [facility] [address] [id number] [place] [address] 88074- 7684 Aug, [facility] [address] [id number] [place] [address] 53821- 0820 Aug, [facility] [address] [place] [address] [id number] [place] [address] 29861- 9947 Aug, Hypoglycemia E16.2 and Bilateral impacted cerumen H61.23 [facility] [address] [place] [address] [id number] [place] [address] 56260- 3166 Aug, [facility] [address] [place] [id number] [place] [address] 23433- 2640 Jul, [facility] [address] [id number] [place] [address] 87835- 3523 Jul, [facility] [address] [place] [id number] [place] [address] 71275- 9607 15 Jul, 2016 Bipolar 2 disorder F31.81 ; Panic disorder with agoraphobia F40.01 ; PTSD (post-traumatic stress disorder) F43.10 and Epilepsy G40.909 [facility] [address] [place] [address] [id number] [place] [address] 79164- 7571 12 Jul, 2016 [facility] [address] [address]- 4375 Jul, Type 2 diabetes mellitus without complications E11.9 and Coughing R05 [facility] [address] [place] [address] [id number] [place] [address] 79467- 4799 Jul, [facility] [id number] [place] [address] 02808- 6247 Jun, [facility] [address] [place] [address] [id number] [place] [address] 48445- 2869 Jun, Bipolar 2 disorder F31.81 ; PTSD (post-traumatic stress disorder) F43.10 and Panic disorder with agoraphobia F40.01 [facility] [address] [place] [id number] [place] [address] 03085- 5010 Jun, [facility] [address] [place] [id number] [place] [address] 42449- 4423 Jun, [facility] [address] [place] [id number] [place] [address] 10559- 2652 Jun, [facility] [address] [place] [id number] [place] [address] 38799- 2434 Jun, Type 2 diabetes mellitus without complications E11.9 and COPD (chronic obstructive pulmonary disease) J44.9 [facility] [address] [place] [address] [id number] May, Dental examination Z01.20 and Dental caries K02.9 [facility] [address] [place] [address] 04408- 3356 May, Bipolar 2 disorder F31.81 ; PTSD (post-traumatic stress disorder) F43.10 and Panic disorder with agoraphobia F40.01 [facility] [address] [place] [address] 20113- 1824 May, Lumbago with sciatica, right side M54.41 ; Other chronic pain G89.29 and Uncontrolled type 2 diabetes mellitus without complication, without long-term 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 E11.65 [place] [address] [address]- 0506 May, Chronic bronchitis, unspecified chronic bronchitis type J42 [place] [address] [place] [id number] [place] [address] 27549- 3316 May, [place] [address] [place] [id number] [place] [address] 28511- 2802 May, [place] [address] [place] [id number] [place] [address] 25144- 5917 May, Chest pain, unspecified type R07.9 ; Tobacco use Z72.0 ; Type 2 diabetes mellitus without complications E11.9 ; Essential hypertension I10 ; Hyperlipidemia, unspecified hyperlipidemia type E78.5 ; Obesity (BMI 30- 39.9) E66.9 ; History of hypothyroidism Z86.39 ; Chronic obstructive pulmonary disease, unspecified COPD type J44.9 ; Anxiety F41.9 ; Bilateral claudication of lower limb I73.9 and Bipolar 2 disorder F31.81 [place] [address] [place] [address] 08012- 6069 May, Bipolar 2 disorder F31.81 ; Panic disorder with agoraphobia F40.01 and Tobacco abuse Z72.0 [place] [address] [address]- 9248 Apr, [place] [address], [place] [address]- 1553 Apr, [place] [address] [place] [id number] [place] [address] 80415- 1860 Apr, [place] [address] [place] [address] 35033- 8378 Apr, Bipolar 2 disorder F31.81 ; Panic disorder with agoraphobia F40.01 and PTSD (post-traumatic stress disorder) F43.10 [place] [address] [address]- 9974 Apr, Chronic bronchitis, unspecified chronic bronchitis type J42 ; Cervical neuritis M54.12 and Thoracic neuritis M54.14 [place] [address] 26626- 2935 15 Apr, 2016 [facility] [address] 93260- 1193 15 Apr, 2016 Cervicalgia M54.2 [place] [address] 65553- 4807 14 Apr, 2016 Bipolar 2 disorder F31.81 ; Panic disorder with agoraphobia F40.01 and PTSD (post-traumatic stress disorder) F43.10 [facility] [address] 61014 -9564 13 Apr, 2016 [facility] [address] 94953 -8201 09 Apr, 2016 Cough R05 and Tobacco dependence F17.200 [place] [address] 49814- 3404 06 Apr, 2016 [place] [address] 61660- 2341 Apr, [place] [address] 31885- 4230 March, Bipolar 2 disorder F31.81 ; Panic disorder with agoraphobia F40.01 and Generalized anxiety disorder F41.1 [place] [address] 17156- 9220 March, Closed displaced fracture of fifth metatarsal bone of right foot with routine healing, subsequent encounter S92.351D [place] [address] 22909- 3242 March, Bronchitis J40 [place] [address] 04501- 7005 March, [place] [address] 64449- 4202 March, [place] [address] [place] [address] 59809- 5827 March, Foot pain, right M79.671 ; Cervicalgia M54.2 and 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 mellitus without complication, unspecified rim buster insulin use status E11.9 [place] [address] [place] [id number] [place] [address] 31842- 3844 March, Fracture of fifth metatarsal bone of right foot S92.351A [place] [address] [place] [id number] [place] [address] 02655- 1247 March, [place] [address] 89211- 3664 Jan, Fracture of fifth metatarsal bone of right foot S92.351A [place] [address] [place] [id number] [place] [address] 08196- 8506 Jan, Bipolar 2 disorder F31.81 ; PTSD (post-traumatic stress disorder) F43.10 ; Panic disorder with agoraphobia F40.01 and Epilepsy G40.909 [place] [address] [place] [id number] [place] [address] 20595- 7781 Jan, History of NV (myocardial infarction) I25.2 and History of high cholesterol Z86.39 [place] [address] [place] [address] 16437- 7234 Jan, Bipolar 2 disorder F31.81 ; Panic disorder with agoraphobia F40.01 ; Tobacco abuse Z72.0 and PTSD (post-traumatic stress disorder) F43.10 [place] [address] [place] [address] 61182- 5993 Jan, Fracture of fifth metatarsal bone of right foot S92.351A [place] [address] [place] [id number] [place] [address] 89827- 0495 Jan, [place] [address] [place] [id number] [place] [address] 44622- 6320 Jan, History of high cholesterol Z86.39 [facility] [address] [place] [address] 18314- 8033 Jan, History of NV (myocardial infarction) I25.2 [facility] [address] [place] [id number] [place] [address] 14007- 1765 Jan, [facility] [address] [place] [id number] [place] [address] 50094- 4347 Dec, Back pain M54.9 ; Diabetes E11.9 ; Right knee pain M25.561 and Chest pain R07.9 [facility] [address] [place] [id number] [place] [address] 53815- 5810 Dec, [place] [address] [place] [id number] [place] [address] 94868- 8738 Dec, [place] [address] [place] [id number] [place] [address] 35087- 7039 Dec, Cervicalgia M54.2 [facility] [address] [place] [id number] [place] [address] 85807- 8028 17 Jan, 2016 Bipolar 2 disorder F31.81 ; PTSD (post-traumatic stress disorder) F43.10 ; Panic disorder with agoraphobia F40.01 and Epilepsy G40.909 [facility] [address] [place] [id number] [place] [address] 89012- 2094 08 Jan, 2016 Bipolar 2 disorder F31.81 ; PTSD (post-traumatic stress disorder) F43.10 and Panic disorder with agoraphobia F40.01 [facility] [address] [place] [address] 88089- 2626 Dec, Diabetes E11.9 [facility] [address] [place] [id number] [place] [address] 62876- 6588 Dec, [facility] [address] [place] [address] 62005- 4260 Dec, Other chronic pain G89.29 ; Hepatitis C B19.20 and History of seizures Z87.898 [facility] [address] [id number] [place] [address] 13806- 7444 24 Dec, 2015 [facility] [address] [id number] [place] [address] 12092- 4806 Dec, Bipolar 2 disorder F31.81 and Other chronic pain G89.29 [facility] [address] [id number] [place] [address] 58712- 3836 Dec, Cervicalgia M54.2 and Diabetes E11.9 [facility] [address] [place] [id number] [place] [address] 24745- 8724 Dec, [facility] [address] 36883- 8502 Dec, [facility] [address] [place] [id number] [place] [address] 29097- 1863 Dec, [facility] [address] [place] [id number] [place] [address] 87524- 5881 Dec, [facility] [address] [place] [id number] [place] [address] 58990- 1868 Dec, Type 2 diabetes mellitus without complications E11.9 [facility] [address] [id number] [place] [address] 21745- 5399 10 Dec, 2015 [facility] [address] [place] [id number] [place] [address] 27419- 0402 Dec, History of seizures Z87.898 and Hepatitis C B19.20 [facility] [id number] [place] [address] 42731- 4811 08 Dec, 2015 Hepatitis C B19.20 [facility] [address] [id number] [place] [address] 96578- 3899 Dec, [facility] [address] [place] [address] 22967- 8111 Dec, Cervicalgia M54.2 ; COPD (chronic obstructive pulmonary disease) J44.9 and Hepatitis C B19.[address] 98371- 3976 Dec, Bipolar 2 disorder F31.81 ; History of hypertension Z86.79 ; History of anxiety Z86.59 ; Panic disorder with agoraphobia F40.01 and Epilepsy G40.[address] 14236- 6952 Nov, [address] 97949- 3036 Nov, [address] 83954- 2741 Nov, History of seizures Z87.898 ; OAB (overactive bladder) N32.81 ; Lumbago M54.5 ; Other chronic pain G89.29 ; Cervicalgia M54.2 ; Tobacco abuse Z72.0 ; Tobacco abuse counseling Z71.6 and Impaired fasting glucose R73.[address] 42783- 8478 Nov, Bipolar 2 disorder F31.81 ; PTSD (post-traumatic stress disorder) F43.10 ; History of anxiety Z86.59 ; History of COPD Z87.09 ; Panic disorder with agoraphobia F40.01 and Moderate depressed bipolar I disorder F31.[address] 88394- 9216 Nov, PTSD (post-traumatic stress disorder) F43.10 [facility] [address] [id number] 11 Nov, 2015 Dental examination Z01.20 and Dental caries K02.[address] 50518- 9010 08 Nov, 2015 History of hypertension Z86.79 ; History of hypothyroidism Z86.39 ; History of high cholesterol Z86.39 ; History of COPD Z87.09 and Overactive bladder N32.[address] [place] [id number] [place] [address] 65105- 0775 Nov, Bipolar 2 disorder F31.81 and PTSD (post-traumatic stress disorder) F43.10 [place] [address] [place] [id number] [place] [address] 33360- 4121 Nov, PTSD (post-traumatic stress disorder) F43.10 ; Panic disorder with agoraphobia F40.01 ; Epilepsy G40.909 and Moderate depressed bipolar I disorder F31.32 [place] [address] [place] [id number] [place] [address] 90198- 3837 Nov, [place] [id number] [place] [address] 06199- 9144 Nov, [place] [id number] [place] [address] 61610- 7960 Oct, [place] [id number] [place] [address] 66089- 9046 Oct, Generalized anxiety disorder F41.1 ; Major depression, recurrent F33.9 and PTSD (post-traumatic stress disorder) F43.10 [place] [id number] [place] [address] 10525- 6386 Oct, Elevated fasting glucose R73.01 [place] [id number] [place] [address] 12070- 6695 Oct, Elevated fasting glucose R73.01 [place] [address] [place] [address] [id number] [place] [address] 63699- 7200 Oct, History of COPD Z87.09 [address] [place] [address] 92246- 8972 15 Oct, 2015 General medical exam Z00.00 ; History of hypertension Z86.79 ; History of hypothyroidism Z86.39 ; History of hepatitis Z86.19 ; History of high cholesterol Z86.39 and History of seizures Z87.898 [place] [id number] [place] [address] 70426- 3892 10 Oct, 2015 General medical exam Z00.00 ; History of hypertension Z86.79 ; History of hypothyroidism Z86.39 ; Bipolar 2 disorder F31.81 ; PTSD ( post-traumatic stress disorder) F43.10 ; History of hepatitis Z86.19 ; History of high cholesterol Z86.39 ; History of anxiety Z86.59 ; History of seizures Z87.898 ; History of NV (myocardial infarction) I25.2 and History of COPD Z87.09 [place] [address] [place] [address] 56060- 2386 10 Oct, 2015 Generalized anxiety disorder F41.1 ; Depression F32.9 and PTSD (post-traumatic stress disorder) F43.10 [place] [address] [place] [address] 77851 2546 14 Jan, 2015 [place] [address] [place] [id number] [place] [address] 67898- 2546 Jan, [place] [address] [place] [id number] [place] [address] 67215- 2546 Jun, [facility] [address] [place] [id number] Jun, [place] [address] [place] [id number] [place] [address] 51057- 2546 May, [place] [address] [address]- 2546 May, [facility] [address] [place] [id number] May, [place] [address] [address]- 2546 May, [facility] [address] [place] [id number] May, [place] [address] [address]- 2546 May, IMMUNIZATIONS No Known Immunizations SOCIAL HISTORY Never Assessed REASON FOR VISIT refill PLAN OF CARE VITAL SIGNS MEDICATIONS Medication Instructions Dosage Frequency Start Date End Date Duration Status Nitroglycerin 0.4 MG Sublingual 3 times a day, prn chest pain 1 tablet Dec, Active RESULTS No Results PROCEDURES No Known [...]
[2019-01-26] MEDS ORDERED: LACTATED RINGERS 1,000 ML IV STA (07:08)
[2019-01-26] MEDS ORDERED: PHENYLEPHRINE 100 MCG/ML 10 ML (ANESTHESIA) SYR ONE (07:08)
--- OUTSIDE RECORDS SUMMARY | 2019-01-26 07:08 | XMS REPORT ---
Author Author GERARDO KISER [facility] Address [address] [place] [address] Care Team Providers Care Director Of Financial Aid Name Role Phone MARGIGERARDO Unavailable PROBLEMS Type Condition ICD9-CM Code NQR84-ZW Code Onset Dates Condition Status SNOMED Code Problem Other chronic pain G89.29 Active 39480082 Problem OAB (overactive bladder) N32.81 Active 653795031 Problem Tobacco abuse Z72.0 Active 23060598 Problem Cervicalgia M54.2 Active 81565489 Problem Lumbago M54.5 Active 965258694 Problem Hepatitis C B19.20 Active 11456584 Problem COPD (chronic obstructive pulmonary disease) J44.9 Active 09388091 Problem Diabetes E11.9 Active 03892242 Problem Type 2 diabetes mellitus without complications E11.9 Active 849271396 Problem Stress incontinence of urine N39.3 Active 31787703 Problem Bilateral claudication of lower limb I73.9 Active 825822200 Problem Seasonal allergic rhinitis due to other allergic trigger J30.89 Active 190421582 Problem Hypoglycemia E16.2 Active 218729341 Problem Hypertension, unspecified type I10 Active 20025635 Problem Bipolar affective disorder, currently depressed, mild F31.31 Active 688374498 Problem Hyperlipidemia, unspecified hyperlipidemia type E78.5 Active 79393707 Problem Fallen bladder N81.10 Active 737401372 Problem Chronic tension-type headache, not intractable G44.229 Active 207185360 Problem meterman 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 Active 854595229 Problem Type 2 diabetes mellitus with hyperglycemia E11.65 Active 218926897 Problem Bipolar 2 disorder F31.81 Active 18977200 Problem Chronic post-traumatic stress disorder (PTSD) F43.12 Active 609481685 Problem History of hypothyroidism Z86.39 Active 395683545 Problem Stress incontinence N39.3 Active 28771204 Problem El's esophageal ulceration K22.10 Active 019903549 Problem 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 mellitus without complication, without long -term 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 E11.9 Active 467296528 Problem Irritable bowel syndrome with diarrhea K58.0 Active 082027816 Problem Panic disorder with agoraphobia F40.01 Active 39412371 Problem Type 2 diabetes mellitus with hyperglycemia E11.65 Active 757873896 Problem Epilepsy G40.909 Active 77404850 Problem Hypertension, benign I10 Active 11800916 Problem History of SC (myocardial infarction) I25.2 Active 089469189 Problem Mood disorder F39 Active 65191139 Problem History of hypertension Z86.79 Active 926059888 Problem Uncontrolled type 2 diabetes mellitus without complication, without long-term 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 E11.65 Active 948979712 Problem History of high cholesterol Z86.39 Active 830246986 Problem Bipolar I disorder with mood-congruent psychotic features F31.9 Active 807318393 Problem History of seizures Z87.898 Active 629148141 Problem Bipolar I disorder with duy F31.10 Active 03267958 Problem Primary insomnia F51.01 Active 4263945 Problem Gastritis and duodenitis K29.90 Active 595354711 ALLERGIES No Information ENCOUNTERS Encounter Location Date Diagnosis [facility] [address] [address] 17 Nov, 2018 [facility] [address] [address]- 2878 Aug, [facility] [id number] [place] [address] 02609- 8177 Aug, [facility] [id number] [place] [address] 55947- 8277 Aug, Bipolar 2 disorder F31.81 ; Chronic post-traumatic stress disorder (PTSD) F43.12 and Panic disorder with agoraphobia F40.01 [facility] [address] 26[address]- 8326 Aug, [facility] [id number] [place] [address] 47264- 7518 Jul, [facility] [address] 9[address]- 2635 Jul, Type 2 diabetes mellitus without complications E11.9 ; Fallen bladder N81.10 ; Stress incontinence of urine N39.3 ; Gall bladder disease K82.9 ; Periodontal abscess K05.219 ; Diarrhea, unspecified R19.7 ; Nausea with vomiting, unspecified R11.2 and Chronic tension-type headache, not intractable G44.229 [place] [address] [address]- 6838 Jul, [place] [address] 21992- 1314 Jul, [place] [address] 96772- 6676 Jul, [facility] [address] 94631- 8557 Jul, Bipolar 2 disorder F31.81 ; Panic disorder with agoraphobia F40.01 and Chronic post-traumatic stress disorder (PTSD) F43.12 [place] [address] 22567- 7641 Jun, [facility] [address] 34592- 9120 Jun, [facility] [id number] [place] [address] 13840- 3525 Jun, Lumbago M54.5 [facility] [id number] [place] [address] 10531- 1898 Jun, Type 2 diabetes mellitus with hyperglycemia E11.65 [facility] [id number] [place] [address] 54830- 3502 Jun, [facility] [address] 9[address]88- 3217 Jun, Type 2 diabetes mellitus with hyperglycemia E11.65 ; El 's esophageal ulceration K22.10 and Lumbago M54.5 [place] [address] 85071- 0306 Jun, Type 2 diabetes mellitus with hyperglycemia E11.65 [facility] [address] [facility] [id number] [address] 17 Jun, 2018 [facility] [address] [address]- 0044 Jun, [facility] [address] [address]- 1805 Jun, Bipolar affective disorder, currently depressed, mild F31.31 ; Chronic post-traumatic stress disorder (PTSD) F43.12 and Panic disorder with agoraphobia F40.01 [facility] [address] [facility] [id number] [address] 4256 Jun, [facility] [address] [address]- 0370 Jun, [facility] [id number] [place] [address] 44272- 6512 Jun, Type 2 diabetes mellitus with hyperglycemia E11.65 [facility] [address] [address]- 0933 Jun, Uncontrolled type 2 diabetes mellitus with hyperglycemia E11.65 [facility] [address] [address]- 8036 Jun, [facility] [address] [address]- 3994 May, Lumbago M54.5 [facility] [address] [address] May, [facility] [address] [address]- 1624 May, [facility] [address] [address]- 2401 May, [facility] [address] [address]- 7227 May, [facility] [address] [address]- 8785 May, [facility] [id number] [place] [address] 16297- 9025 May, [facility] [id number] [place] [address] 48165- 5090 May, [facility] [place] [id number] [place] [address] 17328- 6380 May, Lumbago M54.5 [facility] [place] [id number] [place] [address] 21717- 4102 May, [facility] [place] [id number] [place] [address] 41146- [address], [address] of the chest R93.8 [facility] [place] [id number] [place] [address] 64677- 7419 Apr, Bipolar 2 disorder F31.81 ; Chronic post-traumatic stress disorder (PTSD) F43.12 and Panic disorder with agoraphobia F40.01 [facility] [place] [id number] [place] [address] 60063- [address] Apr, [address] of the chest R93.8 [place] [address] [place] [address] 54172- [address] Apr, [address] of the chest R93.8 [facility] [address] [place] [address] 75856- 7444 Apr, [facility] [address] [place] [address] 50058- 3101 Apr, Type 2 diabetes mellitus with hyperglycemia E11.65 [facility] [place] [address] [place] [address] 30227- 7852 Apr, 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 mellitus without complication, without long-term 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 E11.9 ; Watery eyes H04.203 ; Low back pain M54.5 ; Other chronic pain G89.29 ; Chronic tension-type headache, not intractable G44.229 ; Uncontrolled type 2 diabetes mellitus without complication , without long-term 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 E11.65 and Bronchitis J40 [facility] [id number] [place] [address] 93664- 6767 Apr, [facility] [id number] [place] [address] 31644- 1508 Apr, Lumbago M54.5 [place] [address] 18127- 0028 March, [facility] [id number] [place] [address] 97014 -1158 March, Cough R05 ; Pneumonia due to infectious organism, unspecified laterality, unspecified part of lung J18.9 and Non-intractable vomiting with nausea, unspecified vomiting type R11.2 [facility] [address] 76433- 1574 March, Bronchitis J40 [facility] [id number] [place] [address] 82839- 3370 March, [place] [address] 46609- 6776 March, El's esophageal ulceration K22.10 and Type 2 diabetes mellitus with hyperglycemia E11.65 [facility] [place] [id number] [place] [address] 22496- 6051 March, Panic disorder with agoraphobia F40.01 ; Chronic post- traumatic stress disorder (PTSD) F43.12 and Bipolar 2 disorder F31.81 [facility] [place] [id number] [place] [address] 00583- 8122 March, Type 2 diabetes mellitus with hyperglycemia E11.65 [facility] [id number] [place] [address] 87898- 0857 March, [facility] [place] [id number] [place] [address] 59406- 6945 March, Lumbago M54.5 [facility] [id number] [place] [address] 91593- 1432 March, [place] [address] 37963- 4774 March, Irritable bowel syndrome with diarrhea K58.0 ; Primary insomnia F51.01 ; Type 2 diabetes mellitus with hyperglycemia E11.65 and snf 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 [place] [address] 8[address]13- 1938 March, [place] [address] 34422- 6723 Jan, [place] [address] 33750- 6340 Jan, [place] [address] 93867- 1335 Jan, [place] [address] 10784- 5182 Jan, [facility] [place] [id number] [place] [address] 21079- 8780 Jan, Dizziness R42 [facility] [place] [id number] [place] [address] 23561- 6411 Jan, Bipolar affective disorder, currently depressed, mild F31.31 ; Panic disorder with agoraphobia F40.01 and Chronic post-traumatic stress disorder (PTSD) F43.12 [facility] [place] [id number] [place] [address] 05028- 6129 Jan, Dizziness R42 [facility] [place] [id number] [place] [address] 84924- 9604 Jan, Chest pain, unspecified type R07.9 ; Exertional dyspnea R06.09 ; Hypertension, unspecified type I10 and Hyperlipidemia, unspecified hyperlipidemia type E78.5 [place] [address] 93187- 4858 Jan, [place] [id number] [place] [address] 09835- 1568 09 Jan, 2018 Lumbago M54.5 [facility] [place] [id number] [place] [address] 00221- 9989 04 Jan, 2018 El's esophageal ulceration K22.10 ; Blister (nonthermal ) of oral cavity, initial encounter S00.522A ; Local infection of the skin and subcutaneous tissue, unspecified L08.9 ; Type 2 diabetes mellitus with hyperglycemia E11.65 ; meterman 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 and Stress incontinence N39.3 [place] [id number] [place] [address] 86624- 4560 Dec, [facility] [place] [id number] [place] [address] 80452- 0605 27 Dec, 2017 [facility] [place] [id number] [place] [address] 80013- 2181 19 Dec, 2017 [facility] [id number] [place] [address] [phone] 16 Dec, 2017 Dental examination Z01.20 [place] [address] 48681- 4038 15 Dec, 2017 Acute pain of right knee M25.561 [facility] [id number] [place] [address] 66444- 4250 14 Dec, 2017 [facility] [id number] [place] [address] 76226- 9670 14 Dec, 2017 [facility] [place] [id number] [place] [address] 07163- 5306 14 Dec, 2017 Lumbago M54.5 ; Acute pain of right knee M25.561 and Seasonal allergic rhinitis due to other allergic trigger J30.89 [place] [address] [place] [address] 03506- 8287 12 Dec, 2017 Type 2 diabetes mellitus with hyperglycemia E11.65 [place] [address] [place] [address]- 2525 Dec, [facility] [id number] [place] [address] 31927- 2847 Dec, [facility] [id number] [place] [address] 92683- 2191 Dec, [facility] [id number] [place] [address] 37412- 2325 Dec, [facility] [id number] [place] [address] 43961- 8479 Dec, Chronic post-traumatic stress disorder (PTSD) F43.12 and Panic disorder with agoraphobia F40.01 [facility] [id number] [place] [address] 20158- 8131 13 Dec, 2017 Low back pain M54.5 [facility] [id number] [place] [address] 56621- 6062 Dec, Type 2 diabetes mellitus with hyperglycemia E11.65 ; meterman 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 ; Low back pain M54.5 ; Other chronic pain G89.29 and Encounter for therapeutic drug level monitoring Z51.81 [facility] [id number] [place] [address] 46652- 4555 09 Dec, 2017 Coughing R05 [facility] [id number] [place] [address] 68960- 1393 Dec, [facility] [id number] [place] [address] [phone] Dec, 2017 Dental examination Z01.20 [facility] [id number] [place] [address] 62733- 1402 Nov, Type 2 diabetes mellitus without complications E11.9 and Encounter for therapeutic drug level monitoring Z51.81 [facility] [id number] [place] [address] 81616- 1513 Nov, [facility] [id number] [address]- 0131 Oct, Type 2 diabetes mellitus without complications E11.9 [facility] [id number] [place] [address] 00921- 5570 Oct, Type 2 diabetes mellitus with hyperglycemia E11.65 [facility] [id number] [place] [address] 52804- 9262 Aug, Type 2 diabetes mellitus without complications E11.9 [facility] [id number] [place] [address] 60342- 4930 Aug, Type 2 diabetes mellitus without complications E11.9 ; Hypoglycemia E16.2 ; Lumbago M54.5 ; Stress incontinence of urine N39.3 and History of SC (myocardial infarction) I25.2 [facility] [id number] [place] [address] 62090- 2774 Jun, [place] [id number] [place] [address] 09019- 8315 May, [facility] [place] [id number] [place] [address] 54195- 2412 Apr, Panic disorder with agoraphobia F40.01 [facility] [place] [id number] [place] [address] 48849- 4227 Apr, Panic disorder with agoraphobia F40.01 [place] [id number] [place] [address] 98832- 3202 Apr, [facility] [id number] [place] [address] 16009- 0080 March, Other chronic pain G89.29 [facility] [place] [id number] [place] [address] 14209- 5472 March, [facility] [id number] [place] [address] 67781- 5129 March, [facility] [id number] [place] [address] 63876- 5427 March, [place] [address] [address]- 0647 March, [facility] [place] [id number] [place] [address] 64123- 0007 March, Type 2 diabetes mellitus without complications E11.9 [facility] [place] [address] [address]- 5439 March, Diarrhea, unspecified type R19.7 [facility] [place] [id number] [place] [address] 87635- 1784 March, Bipolar 2 disorder F31.81 ; Chronic post-traumatic stress disorder (PTSD) F43.12 and Type 2 diabetes mellitus with hyperglycemia E11.65 [facility] [id number] [address]- 1832 March, [facility] [place] [id number] [place] [address] 99559- 6037 March, [facility] [address] [address]- 7558 March, Hypertension, benign I10 ; Type 2 diabetes mellitus with hyperglycemia E11.65 ; Hepatitis C B19.20 ; Gastritis and duodenitis K29.90 and Dysuria R30.0 [place] [address] [address]- 1903 March, Hypertension, benign I10 ; Type 2 diabetes mellitus with hyperglycemia E11.65 ; Hepatitis C B19.20 ; Gastritis and duodenitis K29.90 and Dysuria R30.0 [facility] [address] [address]- 7400 March, Panic disorder with agoraphobia F40.01 ; Chronic post- traumatic stress disorder (PTSD) F43.12 ; Epilepsy G40.909 and Bipolar I disorder with mood-congruent psychotic features F31.9 [facility] [place] [address] [address]- 9066 March, [facility] [place] [address] [address]- 2304 March, Type 2 diabetes mellitus with hyperglycemia E11.65 [place] [id number] [place] [address] 22201- 4826 18 Jan, 2017 Bipolar I disorder with duy F31.10 [facility] [id number] [place] [address] 70568- 0532 17 Jan, 2017 Bipolar 2 disorder F31.81 ; Chronic post-traumatic stress disorder (PTSD) F43.12 and Type 2 diabetes mellitus with hyperglycemia E11.65 [facility] [address] [address]- 8377 Jan, [facility] [place] [id number] [place] [address] 76739- 5514 Jan, [facility] [place] [id number] [place] [address] 51065- 3869 14 Jan, 2017 Panic disorder with agoraphobia F40.01 [facility] [place] [id number] [place] [address] 15368- 4542 13 Jan, 2017 Panic disorder with agoraphobia F40.01 ; Bipolar I disorder with mood-congruent psychotic features F31.9 ; Chronic post-traumatic stress disorder (PTSD) F43.12 and Epilepsy G40.909 [place] [address] [address]- 6670 Jan, [facility] [place] [id number] [address]- 3748 Jan, [place] [id number] [place] [address] 73344- 6247 10 Jan, 2017 Type 2 diabetes mellitus without complications E11.9 and Hypoglycemia E16.2 [place] [address] [address]- 6680 07 Jan, 2017 Type 2 diabetes mellitus without complications E11.9 ; Primary insomnia F51.01 and Hypertension, benign I10 [place] [id number] [address]- 3869 Jan, [facility] [id number] [place] [address] [id number] Jan, [facility] [id number] [place] [address] 51365- 3882 Dec, Type 2 diabetes mellitus with hyperglycemia E11.65 [facility] [id number] [place] [address] 75792- 6207 Dec, [facility] [id number] [place] [address] 91618- 1130 Dec, Bipolar 2 disorder F31.81 ; Panic disorder with agoraphobia F40.01 ; Chronic post-traumatic stress disorder (PTSD) F43.12 and Epilepsy G40.909 [facility] [id number] [place] [address] 09864- 9326 Dec, [facility] [id number] [place] [address] 47658- 1984 Dec, [facility] [id number] [place] [address] 59385- 0532 Dec, Bipolar 2 disorder F31.81 ; Panic disorder with agoraphobia F40.01 ; Chronic post-traumatic stress disorder (PTSD) F43.12 and Epilepsy G40.909 [facility] [address] [address]- 1460 Dec, [facility] [id number] [place] [address] 61307- 0935 Dec, [facility] [id number] [place] [address] 43647- 3073 Dec, [facility] [id number] [place] [address] 51517- 0383 Dec, Type 2 diabetes mellitus with hyperglycemia E11.65 ; meterman 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 and Lumbago M54.5 [facility] [id number] [address]- 0592 Dec, [facility] [id number] [place] [address] 60809- 8680 Dec, [facility] [id number] [place] [address] 41728- 9156 Dec, [facility] [id number] [place] [address] 35270 -0401 Dec, Pain of left leg M79.605 and Pain in right leg M79.604 [facility] [id number] [place] [address] 29567- 4023 Dec, [facility] [id number] [place] [address] 16409- 3452 Dec, Type 2 diabetes mellitus with hyperglycemia E11.65 [facility] [place] [id number] [place] [address] [phone]- 2191 Dec, [facility] [id number] [place] [address] 38522- 0915 Dec, Type 2 diabetes mellitus with hyperglycemia E11.65 ; snf 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 ; Vagina, candidiasis B37.3 and Other chronic pain G89.29 [facility] [id number] [place] [address] 59820- 1932 Nov, Panic disorder with agoraphobia F40.01 [place] [id number] [place] [address] 46680- [phone] Nov, [facility] [id number] [place] [address] 42735- [phone] Nov, [facility] [id number] [place] [address] [phone]- [phone] Nov, Hypoglycemia E16.2 [place] [id number] [place] [address] [phone]- 0360 Nov, [facility] [id number] [address] 3591 Nov, [facility] [id number] [place] [address] 69373- [phone] Nov, [facility] [id number] [place] [address] 34005- [phone] Nov, Type 2 diabetes mellitus with hyperglycemia E11.65 and meterman 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 [facility] [id number] [place] [address] 79102- 4175 Nov, Panic disorder with agoraphobia F40.01 ; Bipolar 2 disorder F31.81 ; Chronic post-traumatic stress disorder (PTSD) F43.12 and Epilepsy G40.909 [facility] [id number] [place] [address] 95801- [phone] Nov, Panic disorder with agoraphobia F40.01 [facility] [facility] [id number] [place] [address] 98940- 8871 Oct, [facility] [id number] [place] [address] 89335- 7503 Oct, [facility] [facility] [id number] [place] [address] 46967- 1854 Oct, Bipolar 2 disorder F31.81 ; Panic disorder with agoraphobia F40.01 and Mood disorder F39 [facility] [id number] [place] [address] 21489- 3343 Oct, Diabetes E11.9 ; Type 2 diabetes mellitus with hyperglycemia E11.65 and snf 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 [facility] [facility] [id number] [place] [address] 39755- 0160 Oct, [facility] [facility] [id number] [place] [address] 99850- 2483 Sep, [facility] [facility] [id number] [place] [address] 09251- 1292 Sep, Bipolar 2 disorder F31.81 and Mood disorder F39 [facility] [address] [address] 97[address] 28 Sep, 2016 [facility] [id number] [place] [address] 70290- 5038 Sep, Uncontrolled type 2 diabetes mellitus without complication, without long-term 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 E11.65 [facility] [id number] [place] [address] 06555- 0511 Sep, [facility] [id number] [place] [address] 06860- 3990 Sep, [facility] [id number] [place] [address] 20208- 7742 Sep, [facility] [id number] [place] [address] 02723- 5573 Sep, [facility] [id number] [place] [address] 55239- 2410 Sep, Bipolar 2 disorder F31.81 ; Chronic post-traumatic stress disorder (PTSD) F43.12 ; Panic disorder with agoraphobia F40.01 and Epilepsy G40.909 [facility] [address] [place] [address] 99003- 0052 Sep, Bipolar 2 disorder F31.81 ; PTSD (post-traumatic stress disorder) F43.10 and Panic disorder with agoraphobia F40.01 [facility] [id number] [place] [address] 08370- 7501 Sep, [facility] [id number] [place] [address] 99865- 9573 28 Aug, 2016 History of seizures Z87.898 ; Panic disorder with agoraphobia F40.01 and Bipolar 2 disorder F31.81 [facility] [address] [address] 4658 19 Aug, 2016 [facility] [id number] [place] [address] 30184- 7862 17 Aug, 2016 [facility] [id number] [place] [address] 31892- 3907 Aug, [facility] [id number] [place] [address] 85977- 5843 Aug, [facility] [id number] [place] [address] 09035- 2587 Aug, [facility] [address] 90055- 8661 Aug, [facility] [id number] [place] [address] 85863- 7235 Aug, Hypoglycemia E16.2 and Bilateral impacted cerumen H61.23 [facility] [id number] [place] [address] 11715- 6211 Aug, [facility] [address] 88103- 3420 Jul, [facility] [id number] [place] [address] 18573- 8261 Jul, [facility] [address] 15734- 2004 15 Jul, 2016 Bipolar 2 disorder F31.81 ; Panic disorder with agoraphobia F40.01 ; PTSD (post-traumatic stress disorder) F43.10 and Epilepsy G40.909 [facility] [id number] [place] [address] 39081- 6332 Jul, [facility] [id number] [place] [address] 28726- 1428 09 Jul, 2016 Type 2 diabetes mellitus without complications E11.9 and Coughing R05 [facility] [id number] [place] [address] 70292- 1840 06 Jul, 2016 [facility] [id number] [place] [address] 02995- 9186 Jun, [facility] [address] [address]- 6170 Jun, Bipolar 2 disorder F31.81 ; PTSD (post-traumatic stress disorder) F43.10 and Panic disorder with agoraphobia F40.01 [facility] [address] [address]- 0651 Jun, [facility] [id number] [place] [address] 70288- 8374 Jun, [facility] [id number] [place] [address] 84158- 4617 Jun, [facility] [id number] [place] [address] 83538- 5951 Jun, Type 2 diabetes mellitus without complications E11.9 and COPD (chronic obstructive pulmonary disease) J44.9 [facility] [id number] [place] [address] [id number] May, Dental examination Z01.20 and Dental caries K02.9 [facility] [id number] [place] [address] 34003- 7446 May, Bipolar 2 disorder F31.81 ; PTSD (post-traumatic stress disorder) F43.10 and Panic disorder with agoraphobia F40.01 [facility] [address] [address]- 7751 May, Lumbago with sciatica, right side M54.41 ; Other chronic pain G89.29 and Uncontrolled type 2 diabetes mellitus without complication, without long-term 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 E11.65 [facility] [id number] [place] [address] 07648- 3737 May, Chronic bronchitis, unspecified chronic bronchitis type J42 [facility] [address] [address]- 8612 May, [facility] [address] [address]- 2790 May, [facility] [id number] [place] [address] 51310- 1826 13 May, 2016 Chest pain, unspecified type R07.9 ; Tobacco use Z72.0 ; Type 2 diabetes mellitus without complications E11.9 ; Essential hypertension I10 ; Hyperlipidemia, unspecified hyperlipidemia type E78.5 ; Obesity (BMI 30- 39.9) E66.9 ; History of hypothyroidism Z86.39 ; Chronic obstructive pulmonary disease, unspecified COPD type J44.9 ; Anxiety F41.9 ; Bilateral claudication of lower limb I73.9 and Bipolar 2 disorder F31.81 [facility] [id number] [place] [address] 40500- 3157 May, Bipolar 2 disorder F31.81 ; Panic disorder with agoraphobia F40.01 and Tobacco abuse Z72.0 [facility] [id number] [place] [address] 13862- 4374 Apr, [facility] [address] 88565- 3901 Apr, [facility] [id number] [place] [address] 62720- 3965 Apr, [facility] [id number] [place] [address] 27505- 8719 Apr, Bipolar 2 disorder F31.81 ; Panic disorder with agoraphobia F40.01 and PTSD (post-traumatic stress disorder) F43.10 [facility] [id number] [place] [address] 41046- 8014 Apr, Chronic bronchitis, unspecified chronic bronchitis type J42 ; Cervical neuritis M54.12 and Thoracic neuritis M54.14 [place] [id number] [place] [address] 20923- 2056 Apr, [facility] [id number] [place] [address] 97940- 4766 Apr, Cervicalgia M54.2 [facility] [address] 37047- 7166 Apr, Bipolar 2 disorder F31.81 ; Panic disorder with agoraphobia F40.01 and PTSD (post-traumatic stress disorder) F43.10 [facility] [id number] [place] [address] 59720 -4226 13 Apr, 2016 [facility] [id number] [place] [address] 94031 -9398 09 Apr, 2016 Cough R05 and Tobacco dependence F17.200 [facility] [address] 68417- 5863 Apr, [facility] [address] 25070- 1392 Apr, [facility] [id number] [place] [address] 36447- 2468 March, Bipolar 2 disorder F31.81 ; Panic disorder with agoraphobia F40.01 and Generalized anxiety disorder F41.1 [facility] [address] 71518- 8359 March, Closed displaced fracture of fifth metatarsal bone of right foot with routine healing, subsequent encounter S92.351D [facility] [id number] [place] [address] 15789- 1913 March, Bronchitis J40 [facility] [id number] [place] [address] 30062- 1015 March, [facility] [id number] [place] [address] 94672- 9614 March, [facility] [id number] [place] [address] 84656- 3388 March, Foot pain, right M79.671 ; Cervicalgia M54.2 and 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 mellitus without complication, unspecified meterman insulin use status E11.9 [facility] [id number] [place] [address] 62527- 3749 March, Fracture of fifth metatarsal bone of right foot S92.351A [facility] [id number] [place] [address] 28982- 7213 March, [facility] [id number] [place] [address] 49859- 0173 Jan, Fracture of fifth metatarsal bone of right foot S92.351A [facility] [id number] [place] [address] 47138- 8801 Jan, Bipolar 2 disorder F31.81 ; PTSD (post-traumatic stress disorder) F43.10 ; Panic disorder with agoraphobia F40.01 and Epilepsy G40.909 [facility] [address] 55316- 4096 Jan, History of SC (myocardial infarction) I25.2 and History of high cholesterol Z86.39 [facility] [id number] [place] [address] 68928- 2726 Jan, Bipolar 2 disorder F31.81 ; Panic disorder with agoraphobia F40.01 ; Tobacco abuse Z72.0 and PTSD (post-traumatic stress disorder) F43.10 [facility] [id number] [place] [address] 93698- 8136 Jan, Fracture of fifth metatarsal bone of right foot S92.351A [facility] [id number] [place] [address] 42097- 5537 Jan, [facility] [id number] [place] [address] 32598- 0596 Jan, History of high cholesterol Z86.39 [facility] [id number] [place] [address] 72092- 5853 Jan, History of SC (myocardial infarction) I25.2 [facility] [id number] [place] [address] 07808- 9291 Jan, [facility] [id number] [place] [address] 80623- 5946 Dec, Back pain M54.9 ; Diabetes E11.9 ; Right knee pain M25.561 and Chest pain R07.9 [facility] [id number] [place] [address] 50005- 0803 Dec, [facility] [id number] [place] [address] 62239- 6545 Dec, [facility] [id number] [place] [address] 14489- 4378 Dec, Cervicalgia M54.2 [facility] [id number] [place] [address] 87449- 1806 Dec, Bipolar 2 disorder F31.81 ; PTSD (post-traumatic stress disorder) F43.10 ; Panic disorder with agoraphobia F40.01 and Epilepsy G40.909 [facility] [id number] [place] [address] 96391- 3790 Dec, Bipolar 2 disorder F31.81 ; PTSD (post-traumatic stress disorder) F43.10 and Panic disorder with agoraphobia F40.01 [facility] [id number] [place] [address] 85451- 6258 Dec, Diabetes E11.9 [facility] [id number] [place] [address] 10733- 1260 Dec, [facility] [id number] [place] [address] 42464- 1090 Dec, Other chronic pain G89.29 ; Hepatitis C B19.20 and History of seizures Z87.898 [facility] [id number] [place] [address] 52499- 0751 Dec, [facility] [id number] [place] [address] 62600- 5478 Dec, Bipolar 2 disorder F31.81 and Other chronic pain G89.29 [facility] [id number] [place] [address] 52260- 4866 Dec, Cervicalgia M54.2 and Diabetes E11.9 [facility] [id number] [place] [address] 21190- 8426 Dec, [facility] [id number] [place] [address] 14294- 2499 Dec, [facility] [id number] [place] [address] 75351- 9694 Dec, [facility] [id number] [place] [address] 02675- 0912 Dec, [facility] [id number] [place] [address] 89942- 8289 Dec, Type 2 diabetes mellitus without complications E11.9 [facility] [id number] [place] [address] 56738- 4784 10 Dec, 2015 [facility] [address] 66649- 9617 Dec, History of seizures Z87.898 and Hepatitis C B19.20 [facility] [id number] [place] [address] 87572- 2716 08 Dec, 2015 Hepatitis C B19.20 [facility] [id number] [place] [address] 07510- 9807 Dec, [facility] [id number] [place] [address] 07358- 2043 Dec, Cervicalgia M54.2 ; COPD (chronic obstructive pulmonary disease) J44.9 and Hepatitis C B19.20 [facility] [id number] [place] [address] 40152- 2036 Dec, Bipolar 2 disorder F31.81 ; History of hypertension Z86.79 ; History of anxiety Z86.59 ; Panic disorder with agoraphobia F40.01 and Epilepsy G40.909 [facility] [id number] [place] [address] 82977- 0376 Nov, [id number] [place] [address] 05270- 5979 Nov, [address] 83336- 6809 Nov, History of seizures Z87.898 ; OAB (overactive bladder) N32.81 ; Lumbago M54.5 ; Other chronic pain G89.29 ; Cervicalgia M54.2 ; Tobacco abuse Z72.0 ; Tobacco abuse counseling Z71.6 and Impaired fasting glucose R73.01 [place] [id number] [place] [address] 59720- 9224 Nov, Bipolar 2 disorder F31.81 ; PTSD (post-traumatic stress disorder) F43.10 ; History of anxiety Z86.59 ; History of COPD Z87.09 ; Panic disorder with agoraphobia F40.01 and Moderate depressed bipolar I disorder F31.32 [place] [id number] [place] [address] 28515- 3565 Nov, PTSD (post-traumatic stress disorder) F43.10 [facility] [address] [place] [address] [phone] 11 Nov, 2015 Dental examination Z01.20 and Dental caries K02.9 [place] [id number] [place] [address] 16413- 4655 08 Nov, 2015 History of hypertension Z86.79 ; History of hypothyroidism Z86.39 ; History of high cholesterol Z86.39 ; History of COPD Z87.09 and Overactive bladder N32.81 [address] [place] [address] 31973- 4593 Nov, Bipolar 2 disorder F31.81 and PTSD (post-traumatic stress disorder) F43.10 [id number] [place] [address] 56665- 8817 Nov, PTSD (post-traumatic stress disorder) F43.10 ; Panic disorder with agoraphobia F40.01 ; Epilepsy G40.909 and Moderate depressed bipolar I disorder F31.32 [facility] [address] [place] [address] 44655- 2143 Nov, [facility] [id number] [place] [address] 97501- 0734 Nov, [facility] [id number] [place] [address] 59549- 5040 Oct, [facility] [id number] [place] [address] 39270- 5453 Oct, Generalized anxiety disorder F41.1 ; Major depression, recurrent F33.9 and PTSD (post-traumatic stress disorder) F43.10 [place] [id number] [place] [address] 01849- 8153 Oct, Elevated fasting glucose R73.01 [place] [id number] [place] [address] 25659- 9041 Oct, Elevated fasting glucose R73.01 [facility] [id number] [place] [address] 70894- 4659 Oct, History of COPD Z87.09 [place] [id number] [place] [address] 21505- 1444 Oct, General medical exam Z00.00 ; History of hypertension Z86.79 ; History of hypothyroidism Z86.39 ; History of hepatitis Z86.19 ; History of high cholesterol Z86.39 and History of seizures Z87.[address] [place] [address] 05858- 4919 Oct, General medical exam Z00.00 ; History of hypertension Z86.79 ; History of hypothyroidism Z86.39 ; Bipolar 2 disorder F31.81 ; PTSD ( post-traumatic stress disorder) F43.10 ; History of hepatitis Z86.19 ; History of high cholesterol Z86.39 ; History of anxiety Z86.59 ; History of seizures Z87.898 ; History of SC (myocardial infarction) I25.2 and History of COPD Z87.09 [address] [address]- 9348 Oct, Generalized anxiety disorder F41.1 ; Depression F32.9 and PTSD (post-traumatic stress disorder) F43.10 [facility] [id number] [address]- 6469 Jan, [facility] [id number] [address]- 8644 Jan, [facility] [id number] [address]- 0514 Jun, [place] [address] [place] [id number] Jun, [facility] [address] [address]- 1792 May, [facility] [address] [address]- 3984 May, [place] [place] [id number] May, [facility] [id number] [address]- 2782 May, [place] [address] [place] [id number] May, [facility] [id number] [address]- 3326 May, IMMUNIZATIONS No Known Immunizations SOCIAL HISTORY Never Assessed REASON FOR VISIT Requests return call/ PLAN OF CARE VITAL SIGNS MEDICATIONS Unknown Medications RESULTS No Results PROCEDURES No Known procedures INSTRUCTIONS MEDICATIONS ADMINISTERED No Known Medications MEDICAL (GENERAL) HISTORY Type Description Date Medical History Hypothyroidism Medical History High cholesterol Medical History Hypertension Medical History Brain seizure Medical History Asthma Medical History COPD Medical History Hep C -2005 Medical History SC x 2 last in 2009 Medical History PTSD (post-traumatic stress disorder) Medical History Colon Cancer 2017 Medical History diabites II Surgical History tonsillectomy 1985 Surgical History partial hysterectomy 2004 Surgical History appendectomy 2004 Hospitalization History Surgery(s) only Hospitalization History pneumonia x3 days Hospitalization History Heart cath with stint 05/15/2016 Hospitalization History Diverticulitis, N/V-[facility] 01/28/17
--- OUTSIDE RECORDS SUMMARY | 2019-01-26 07:09 | XMS REPORT ---
Author Author GERARDO KISER [facility] Address [address] [place] [address] Care Team Providers Care Video Game Programmer Name Role Phone MARGIGERARDO Unavailable PROBLEMS Type Condition ICD9-CM Code UCL94-TC Code Onset Dates Condition Status SNOMED Code Problem Other chronic pain G89.29 Active 00299359 Problem OAB (overactive bladder) N32.81 Active 918273082 Problem Tobacco abuse Z72.0 Active 43388019 Problem Cervicalgia M54.2 Active 60144099 Problem Lumbago M54.5 Active 723128098 Problem Hepatitis C B19.20 Active 00582099 Problem COPD (chronic obstructive pulmonary disease) J44.9 Active 66839037 Problem Diabetes E11.9 Active 81137382 Problem Type 2 diabetes mellitus without complications E11.9 Active 993261860 Problem Stress incontinence of urine N39.3 Active 95298761 Problem Bilateral claudication of lower limb I73.9 Active 466016420 Problem Seasonal allergic rhinitis due to other allergic trigger J30.89 Active 412561174 Problem Hypoglycemia E16.2 Active 652652655 Problem Hypertension, unspecified type I10 Active 56367102 Problem Bipolar affective disorder, currently depressed, mild F31.31 Active 013786186 Problem Hyperlipidemia, unspecified hyperlipidemia type E78.5 Active 02784411 Problem Fallen bladder N81.10 Active 938601969 Problem Chronic tension-type headache, not intractable G44.229 Active 849473677 Problem 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 Active 686679927 Problem Type 2 diabetes mellitus with hyperglycemia E11.65 Active 865516598 Problem Bipolar 2 disorder F31.81 Active 07189509 Problem Chronic post-traumatic stress disorder (PTSD) F43.12 Active 552116311 Problem History of hypothyroidism Z86.39 Active 343005991 Problem Stress incontinence N39.3 Active 45033174 Problem El's esophageal ulceration K22.10 Active 030278694 Problem 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 mellitus without complication, without long -term 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 E11.9 Active 820469021 Problem Irritable bowel syndrome with diarrhea K58.0 Active 932109726 Problem Panic disorder with agoraphobia F40.01 Active 39217431 Problem Type 2 diabetes mellitus with hyperglycemia E11.65 Active 922433758 Problem Epilepsy G40.909 Active 57508190 Problem Hypertension, benign I10 Active 11693483 Problem History of MN (myocardial infarction) I25.2 Active 885277569 Problem Mood disorder F39 Active 69420200 Problem History of hypertension Z86.79 Active 256837632 Problem Uncontrolled type 2 diabetes mellitus without complication, without long-term 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 E11.65 Active 262752351 Problem History of high cholesterol Z86.39 Active 169230408 Problem Bipolar I disorder with mood-congruent psychotic features F31.9 Active 796907042 Problem History of seizures Z87.898 Active 676259992 Problem Bipolar I disorder with duy F31.10 Active 26010974 Problem Primary insomnia F51.01 Active 9257219 Problem Gastritis and duodenitis K29.90 Active 898787774 ALLERGIES No Information ENCOUNTERS Encounter Location Date Diagnosis [facility] [address] [address]- [address] 17 Nov, 2018 [facility] [address] [address]- 0357 Aug, [facility] [id number] [place] [address] 24711- 1583 Aug, [facility] [id number] [place] [address] 94459- 0845 Aug, Bipolar 2 disorder F31.81 ; Chronic post-traumatic stress disorder (PTSD) F43.12 and Panic disorder with agoraphobia F40.01 [facility] [address] 6[address]- 8955 Aug, [facility] [id number] [place] [address] 48456- 8924 Jul, [facility] [address] 20181- 3080 Jul, Type 2 diabetes mellitus without complications E11.9 ; Fallen bladder N81.10 ; Stress incontinence of urine N39.3 ; Gall bladder disease K82.9 ; Periodontal abscess K05.219 ; Diarrhea, unspecified R19.7 ; Nausea with vomiting, unspecified R11.2 and Chronic tension-type headache, not intractable G44.229 [place] [address] [address]- 8917 Jul, [place] [address] 84709- 2488 Jul, [place] [address] 37484- 5168 Jul, [place] [address] 82105- 0131 Jul, Bipolar 2 disorder F31.81 ; Panic disorder with agoraphobia F40.01 and Chronic post-traumatic stress disorder (PTSD) F43.12 [place] [address] 31022- 2280 Jun, [place] [address] 58208- 0888 Jun, [facility] [id number] [place] [address] 59870- 6977 Jun, Lumbago M54.5 [facility] [id number] [place] [address] 18450- 6257 Jun, Type 2 diabetes mellitus with hyperglycemia E11.65 [facility] [id number] [place] [address] 23576- 1395 Jun, [place] [address] 56331- 7846 Jun, Type 2 diabetes mellitus with hyperglycemia E11.65 ; El 's esophageal ulceration K22.10 and Lumbago M54.5 [place] [address] 14254- 8819 Jun, Type 2 diabetes mellitus with hyperglycemia E11.65 [facility] [address] [facility] [id number] [address] 17 Jun, 2018 [facility] [address] [address] 7533 Jun, [facility] [address] [address] 7604 Jun, Bipolar affective disorder, currently depressed, mild F31.31 ; Chronic post-traumatic stress disorder (PTSD) F43.12 and Panic disorder with agoraphobia F40.01 [facility] [address] [facility] [id number] [address] 0666 Jun, [facility] [address] [address]- 3538 Jun, [facility] [address] [place] [address] 90491- 5308 Jun, Type 2 diabetes mellitus with hyperglycemia E11.65 [facility] [address] [address]- 8931 Jun, Uncontrolled type 2 diabetes mellitus with hyperglycemia E11.65 [facility] [address] [address]- 6245 Jun, [facility] [address] [address] 5349 May, Lumbago M54.5 [facility] [address] [address] May, [facility] [address] [address]- 4452 May, [facility] [address] [address]- 8506 May, [facility] [address] [address]- 2625 May, [facility] [address] [address]- 4446 May, [facility] [address] [place] [address] 14519- 0654 May, [facility] [id number] [place] [address] 57221- 0999 May, [facility] [place] [id number] [place] [address] 65508- 0615 May, Lumbago M54.5 [facility] [place] [id number] [place] [address] 14683- 3678 May, [facility] [place] [id number] [place] [address] 71630- [address] Apr, [address] of the chest R93.8 [facility] [place] [id number] [place] [address] 23950- 5158 Apr, Bipolar 2 disorder F31.81 ; Chronic post-traumatic stress disorder (PTSD) F43.12 and Panic disorder with agoraphobia F40.01 [facility] [place] [id number] [place] [address] 69310- [address] Apr, [address] of the chest R93.8 [facility] [address] [place] [address] 89700- [address] Apr, [address] of the chest R93.8 [facility] [address] [place] [address] 93987- 3547 Apr, [facility] [address] [place] [address] 75897- 2379 Apr, Type 2 diabetes mellitus with hyperglycemia E11.65 [facility] [address] [place] [address] 51474- 0258 Apr, 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 mellitus without complication, without long-term 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 E11.9 ; Watery eyes H04.203 ; Low back pain M54.5 ; Other chronic pain G89.29 ; Chronic tension-type headache, not intractable G44.229 ; Uncontrolled type 2 diabetes mellitus without complication , without long-term 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 E11.65 and Bronchitis J40 [facility] [id number] [place] [address] 40744- 3652 Apr, [facility] [id number] [place] [address] 25198- 8908 Apr, Lumbago M54.5 [place] [address] 76471- 3152 March, [facility] [id number] [place] [address] 46215 -1550 March, Cough R05 ; Pneumonia due to infectious organism, unspecified laterality, unspecified part of lung J18.9 and Non-intractable vomiting with nausea, unspecified vomiting type R11.2 [place] [address] 04225- 6864 March, Bronchitis J40 [facility] [id number] [place] [address] 35418- 4457 March, [place] [address] 75148- 0154 March, El's esophageal ulceration K22.10 and Type 2 diabetes mellitus with hyperglycemia E11.65 [facility] [id number] [place] [address] 15956- 5429 March, Panic disorder with agoraphobia F40.01 ; Chronic post- traumatic stress disorder (PTSD) F43.12 and Bipolar 2 disorder F31.81 [facility] [id number] [place] [address] 54200- 9516 March, Type 2 diabetes mellitus with hyperglycemia E11.65 [facility] [id number] [place] [address] 86061- 5600 March, [facility] [id number] [place] [address] 91067- 1834 March, Lumbago M54.5 [facility] [id number] [place] [address] 14603- 7705 March, [place] [address] 13495- 8614 March, Irritable bowel syndrome with diarrhea K58.0 ; Primary insomnia F51.01 ; Type 2 diabetes mellitus with hyperglycemia E11.65 and custodial 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 [place] [address] 67907- 4968 March, [place] [address] 03777- 3195 Jan, [place] [address] 28778- 0636 Jan, [place] [address] 30497- 0939 Jan, [place] [address] 07230- 8418 Jan, [facility] [place] [id number] [place] [address] 14584- 2482 Jan, Dizziness R42 [facility] [id number] [place] [address] 25421- 1807 Jan, Bipolar affective disorder, currently depressed, mild F31.31 ; Panic disorder with agoraphobia F40.01 and Chronic post-traumatic stress disorder (PTSD) F43.12 [facility] [id number] [place] [address] 48502- 3041 Jan, Dizziness R42 [facility] [id number] [place] [address] 66317- 6011 Jan, Chest pain, unspecified type R07.9 ; Exertional dyspnea R06.09 ; Hypertension, unspecified type I10 and Hyperlipidemia, unspecified hyperlipidemia type E78.5 [place] [address] 45259- 4038 Jan, [facility] [id number] [place] [address] 68660- 2678 09 Jan, 2018 Lumbago M54.5 [facility] [place] [id number] [place] [address] 64593- 0686 04 Jan, 2018 El's esophageal ulceration K22.10 ; Blister (nonthermal ) of oral cavity, initial encounter S00.522A ; Local infection of the skin and subcutaneous tissue, unspecified L08.9 ; Type 2 diabetes mellitus with hyperglycemia E11.65 ; 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 and Stress incontinence N39.3 [facility] [id number] [place] [address] 66225- 0895 Dec, [facility] [id number] [place] [address] 58938- 1370 27 Dec, 2017 [place] [id number] [place] [address] 29028- 2076 19 Dec, 2017 [facility] [id number] [place] [address] [id number] 16 Dec, 2017 Dental examination Z01.20 [place] [address] 10361- 0209 15 Dec, 2017 Acute pain of right knee M25.561 [facility] [facility] [id number] [place] [address] 09146- 7046 14 Dec, 2017 [facility] [id number] [place] [address] 29398- 1360 14 Dec, 2017 [place] [place] [id number] [place] [address] 01970- 5580 14 Dec, 2017 Lumbago M54.5 ; Acute pain of right knee M25.561 and Seasonal allergic rhinitis due to other allergic trigger J30.89 [place] [address] [place] [address] 07990- 4152 12 Dec, 2017 Type 2 diabetes mellitus with hyperglycemia E11.65 [place] [address] [place] [address]- 8680 Dec, [facility] [id number] [place] [address] 83716- 7112 Dec, [facility] [address] [place] [address] 41016- 9938 Dec, [facility] [id number] [place] [address] 63310- 7955 Dec, [facility] [id number] [place] [address] 24188- 9640 Dec, Chronic post-traumatic stress disorder (PTSD) F43.12 and Panic disorder with agoraphobia F40.01 [facility] [id number] [place] [address] 63741- 5436 13 Dec, 2017 Low back pain M54.5 [facility] [id number] [place] [address] 42074- 1094 Dec, Type 2 diabetes mellitus with hyperglycemia E11.65 ; 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 ; Low back pain M54.5 ; Other chronic pain G89.29 and Encounter for therapeutic drug level monitoring Z51.81 [facility] [address] [place] [address] 48118- 1990 09 Dec, 2017 Coughing R05 [facility] [address] [place] [address] 09169- 7320 Dec, [facility] [id number] [place] [address] [id number] 07 Dec, 2017 Dental examination Z01.20 [facility] [id number] [place] [address] 70582- 1513 Nov, Type 2 diabetes mellitus without complications E11.9 and Encounter for therapeutic drug level monitoring Z51.81 [facility] [address] [place] [address] 76140- 4061 Nov, [facility] [id number] [address]- 9005 Oct, Type 2 diabetes mellitus without complications E11.9 [facility] [id number] [place] [address] 70246- 8172 Oct, Type 2 diabetes mellitus with hyperglycemia E11.65 [facility] [id number] [place] [address] 32461- 1153 Aug, Type 2 diabetes mellitus without complications E11.9 [facility] [id number] [place] [address] 64292- 8813 Aug, Type 2 diabetes mellitus without complications E11.9 ; Hypoglycemia E16.2 ; Lumbago M54.5 ; Stress incontinence of urine N39.3 and History of MN (myocardial infarction) I25.2 [facility] [id number] [place] [address] 80237- 5279 Jun, [facility] [id number] [place] [address] 14561- 8914 May, [facility] [id number] [place] [address] 30287- 4680 Apr, Panic disorder with agoraphobia F40.01 [facility] [place] [id number] [place] [address] 64776- 5518 Apr, Panic disorder with agoraphobia F40.01 [place] [address] [place] [address] 14088- 0110 Apr, [facility] [id number] [place] [address] 13761- 5237 March, Other chronic pain G89.29 [facility] [id number] [place] [address] 92921- 8000 March, [facility] [id number] [place] [address] 50850- 7996 March, [facility] [id number] [place] [address] 83150- 6642 March, [facility] [address], [place] [address]- 1548 March, [facility] [id number] [place] [address] 91549- 8153 March, Type 2 diabetes mellitus without complications E11.9 [facility] [address], [place] [address]- 8430 March, Diarrhea, unspecified type R19.7 [facility] [id number] [place] [address] 81540- 3154 March, Bipolar 2 disorder F31.81 ; Chronic post-traumatic stress disorder (PTSD) F43.12 and Type 2 diabetes mellitus with hyperglycemia E11.65 [facility] [address] [address]- 3136 March, [facility] [id number] [place] [address] 57396- 2914 March, [facility] [facility] [address] [address]- 4892 March, Hypertension, benign I10 ; Type 2 diabetes mellitus with hyperglycemia E11.65 ; Hepatitis C B19.20 ; Gastritis and duodenitis K29.90 and Dysuria R30.0 [place] [address] [address]- 9153 March, Hypertension, benign I10 ; Type 2 diabetes mellitus with hyperglycemia E11.65 ; Hepatitis C B19.20 ; Gastritis and duodenitis K29.90 and Dysuria R30.0 [place] [address], [place] [address]- 7738 March, Panic disorder with agoraphobia F40.01 ; Chronic post- traumatic stress disorder (PTSD) F43.12 ; Epilepsy G40.909 and Bipolar I disorder with mood-congruent psychotic features F31.9 [place] [address], [place] [address]- 4466 March, [facility] [address] [address]- 6948 March, Type 2 diabetes mellitus with hyperglycemia E11.65 [facility] [facility] [id number] [place] [address] 64280- 0816 18 Jan, 2017 Bipolar I disorder with duy F31.10 [facility] [id number] [place] [address] 13869- 3480 17 Jan, 2017 Bipolar 2 disorder F31.81 ; Chronic post-traumatic stress disorder (PTSD) F43.12 and Type 2 diabetes mellitus with hyperglycemia E11.65 [facility] [address] [address]- 2987 Jan, [facility] [id number] [place] [address] 22419- 1896 Jan, [facility] [id number] [place] [address] 83779- 5847 14 Jan, 2017 Panic disorder with agoraphobia F40.01 [facility] [id number] [place] [address] 27179- 4699 13 Jan, 2017 Panic disorder with agoraphobia F40.01 ; Bipolar I disorder with mood-congruent psychotic features F31.9 ; Chronic post-traumatic stress disorder (PTSD) F43.12 and Epilepsy G40.909 [place] [address] [address]- 8502 Jan, [facility] [place] [address] [address]- 0738 Jan, [facility] [address] [place] [address] 98969- 2266 10 Jan, 2017 Type 2 diabetes mellitus without complications E11.9 and Hypoglycemia E16.2 [facility] [address] [address]- 9421 07 Jan, 2017 Type 2 diabetes mellitus without complications E11.9 ; Primary insomnia F51.01 and Hypertension, benign I10 [facility] [id number] [address]- 4307 Jan, [facility] [id number] [place] [address] [id number] Jan, [facility] [address] [place] [address] 03498- 9339 Dec, Type 2 diabetes mellitus with hyperglycemia E11.65 [facility] [address] [place] [address] 49534- 4884 Dec, [facility] [address] [place] [address] 41940- 2640 Dec, Bipolar 2 disorder F31.81 ; Panic disorder with agoraphobia F40.01 ; Chronic post-traumatic stress disorder (PTSD) F43.12 and Epilepsy G40.909 [facility] [address] [place] [address] 45899- 1019 Dec, [facility] [id number] [place] [address] 80199- 1941 Dec, [facility] [address] [place] [address] 99127- 2994 Dec, Bipolar 2 disorder F31.81 ; Panic disorder with agoraphobia F40.01 ; Chronic post-traumatic stress disorder (PTSD) F43.12 and Epilepsy G40.909 [facility] [address] [address]- 2578 Dec, [facility] [id number] [place] [address] 10788- 3221 Dec, [facility] [address] [place] [address] 30537- 9415 Dec, [facility] [id number] [place] [address] 60668- 6899 Dec, Type 2 diabetes mellitus with hyperglycemia E11.65 ; 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 and Lumbago M54.5 [facility] [address] [address]- 3231 Dec, [facility] [address] [place] [address] 98760- 2470 Dec, [facility] [id number] [place] [address] 43584- 9516 Dec, [facility] [id number] [place] [address] 00227 -9451 Dec, Pain of left leg M79.605 and Pain in right leg M79.604 [facility] [id number] [place] [address] 30010- 9763 Dec, [facility] [id number] [place] [address] 72671- 3297 Dec, Type 2 diabetes mellitus with hyperglycemia E11.65 [facility] [id number] [place] [address] 55250- 4596 Dec, [facility] [id number] [place] [address] 12176- 9316 Dec, Type 2 diabetes mellitus with hyperglycemia E11.65 ; custodial 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 ; Vagina, candidiasis B37.3 and Other chronic pain G89.29 [facility] [id number] [place] [address] 79013- 2557 Nov, Panic disorder with agoraphobia F40.01 [facility] [id number] [place] [address] 48495- 7544 Nov, [facility] [id number] [place] [address] 20838- 8795 Nov, [facility] [id number] [place] [address] 52751- 6993 Nov, Hypoglycemia E16.2 [facility] [id number] [place] [address] 98444- 6260 Nov, [facility] [id number] [address] Nov, [facility] [id number] [place] [address] 33421- 0404 Nov, [facility] [id number] [place] [address] 63606- 2585 Nov, Type 2 diabetes mellitus with hyperglycemia E11.65 and 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 [facility] [id number] [place] [address] 41762- 1942 Nov, Panic disorder with agoraphobia F40.01 ; Bipolar 2 disorder F31.81 ; Chronic post-traumatic stress disorder (PTSD) F43.12 and Epilepsy G40.909 [facility] [id number] [place] [address] 02312- 6102 Nov, Panic disorder with agoraphobia F40.01 [facility] [id number] [place] [address] 25592- 2411 Oct, [facility] [id number] [place] [address] 74946- 2829 Oct, [facility] [id number] [place] [address] 99832- 4698 Oct, Bipolar 2 disorder F31.81 ; Panic disorder with agoraphobia F40.01 and Mood disorder F39 [facility] [id number] [place] [address] [address]- [address] Oct, Diabetes E11.9 ; Type 2 diabetes mellitus with hyperglycemia E11.65 and custodial 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 [place] [id number] [place] [address] 97634- 4634 Oct, [place] [address] [id number] [place] [address] 36129- 2236 Sep, [place] [id number] [place] [address] 60275- 4456 Sep, Bipolar 2 disorder F31.81 and Mood disorder F39 [facility] [address] [address] 6[address] 28 Sep, 2016 [facility] [id number] [place] [address] 26971- 9094 Sep, Uncontrolled type 2 diabetes mellitus without complication, without long-term 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 E11.65 [facility] [id number] [place] [address] 59884- 8678 Sep, [facility] [id number] [place] [address] 28736- 8115 Sep, [facility] [id number] [place] [address] 51854- 3280 Sep, [place] [id number] [place] [address] 18875- 6102 Sep, [facility] [id number] [place] [address] 02351- 6557 Sep, Bipolar 2 disorder F31.81 ; Chronic post-traumatic stress disorder (PTSD) F43.12 ; Panic disorder with agoraphobia F40.01 and Epilepsy G40.909 [place] [address] [place] [address] 74465- 5893 Sep, Bipolar 2 disorder F31.81 ; PTSD (post-traumatic stress disorder) F43.10 and Panic disorder with agoraphobia F40.01 [place] [address] [place] [address] 83330- 7871 Sep, [facility] [address] [place] [address] 94263- 6792 28 Aug, 2016 History of seizures Z87.898 ; Panic disorder with agoraphobia F40.01 and Bipolar 2 disorder F31.81 [facility] [address] [address] 3[address] 19 Aug, 2016 [facility] [id number] [place] [address] 22938- 5984 17 Aug, 2016 [facility] [id number] [place] [address] 95986- 9876 Aug, [facility] [id number] [place] [address] 28054- 5283 Aug, [facility] [id number] [place] [address] 66203- 7092 Aug, [facility] [address] 14036- 2365 Aug, [facility] [id number] [place] [address] 19570- 0608 Aug, Hypoglycemia E16.2 and Bilateral impacted cerumen H61.23 [facility] [id number] [place] [address] 35855- 7679 Aug, [facility] [address] 68559- 9619 Jul, [facility] [id number] [place] [address] 71435- 8633 Jul, [facility] [address] 60626- 7382 15 Jul, 2016 Bipolar 2 disorder F31.81 ; Panic disorder with agoraphobia F40.01 ; PTSD (post-traumatic stress disorder) F43.10 and Epilepsy G40.909 [facility] [id number] [place] [address] 54443- 7928 Jul, [facility] [id number] [place] [address] 43712- 2389 09 Jul, 2016 Type 2 diabetes mellitus without complications E11.9 and Coughing R05 [facility] [id number] [place] [address] 05828- 2206 06 Jul, 2016 [facility] [id number] [place] [address] 16864- 6815 Jun, [facility] [address] [address] 2783 Jun, Bipolar 2 disorder F31.81 ; PTSD (post-traumatic stress disorder) F43.10 and Panic disorder with agoraphobia F40.01 [facility] [address] [address] 4540 Jun, [facility] [id number] [place] [address] 25981- 1718 Jun, [facility] [id number] [place] [address] 80810- 8233 Jun, [place] [id number] [place] [address] 65029- 0037 Jun, Type 2 diabetes mellitus without complications E11.9 and COPD (chronic obstructive pulmonary disease) J44.9 [facility] [id number] [place] [address] [id number] May, Dental examination Z01.20 and Dental caries K02.9 [place] [id number] [place] [address] 96784- 1824 May, Bipolar 2 disorder F31.81 ; PTSD (post-traumatic stress disorder) F43.10 and Panic disorder with agoraphobia F40.01 [place] [address] [address]- 8423 May, Lumbago with sciatica, right side M54.41 ; Other chronic pain G89.29 and Uncontrolled type 2 diabetes mellitus without complication, without long-term 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 E11.65 [facility] [address] [place] [address] 83863- 2349 May, Chronic bronchitis, unspecified chronic bronchitis type J42 [facility] [address] [address]- 1688 May, [facility] [address], [place] [address]- 7188 May, [facility] [id number] [place] [address] 94150- 0669 13 May, 2016 Chest pain, unspecified type [...] limb I73.9 and Bipolar 2 disorder F31.81 [facility] [id number] [place] [address] 68998- 6990 May, Bipolar 2 disorder F31.81 ; Panic disorder with agoraphobia F40.01 and Tobacco abuse Z72.0 [place] [id number] [place] [address] 27259- 4130 Apr, [place] [address] 17422- 4245 Apr, [facility] [id number] [place] [address] 01268- 0478 Apr, [facility] [id number] [place] [address] 34797- 2485 Apr, Bipolar 2 disorder F31.81 ; Panic disorder with agoraphobia F40.01 and PTSD (post-traumatic stress disorder) F43.10 [facility] [id number] [place] [address] 47707- 7871 Apr, Chronic bronchitis, unspecified chronic bronchitis type J42 ; Cervical neuritis M54.12 and Thoracic neuritis M54.14 [place] [id number] [place] [address] 09917- 6687 Apr, [place] [id number] [place] [address] 72813- 1617 Apr, Cervicalgia M54.2 [place] [address] 88469- 4968 Apr, Bipolar 2 disorder F31.81 ; Panic disorder with agoraphobia F40.01 and PTSD (post-traumatic stress disorder) F43.10 [facility] [id number] [place] [address] 27682 -5141 13 Apr, 2016 [facility] [id number] [place] [address] 62805 -1659 09 Apr, 2016 Cough R05 and Tobacco dependence F17.200 [place] [address] 45280- 6817 Apr, [place] [address] 34699- 6026 Apr, [place] [address] [id number] [place] [address] 97641- 8793 March, Bipolar 2 disorder F31.81 ; Panic disorder with agoraphobia F40.01 and Generalized anxiety disorder F41.1 [place] [address] 15932- 0373 March, Closed displaced fracture of fifth metatarsal bone of right foot with routine healing, subsequent encounter S92.351D [facility] [id number] [place] [address] 91356- 0709 March, Bronchitis J40 [facility] [id number] [place] [address] 42829- 0081 March, [facility] [id number] [place] [address] 35567- 2876 March, [facility] [id number] [place] [address] 00211- 7115 March, Foot pain, right M79.671 ; Cervicalgia M54.2 and 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 mellitus without complication, 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 operator insulin use status E11.9 [facility] [id number] [place] [address] 67947- 8171 March, Fracture of fifth metatarsal bone of right foot S92.351A [facility] [id number] [place] [address] 05879- 2990 March, [facility] [id number] [place] [address] 54998- 2390 Jan, Fracture of fifth metatarsal bone of right foot S92.351A [facility] [id number] [place] [address] 16724- 4537 Jan, Bipolar 2 disorder F31.81 ; PTSD (post-traumatic stress disorder) F43.10 ; Panic disorder with agoraphobia F40.01 and Epilepsy G40.909 [place] [address] 24800- 1305 Jan, History of MN (myocardial infarction) I25.2 and History of high cholesterol Z86.39 [facility] [id number] [place] [address] 32512- 2076 Jan, Bipolar 2 disorder F31.81 ; Panic disorder with agoraphobia F40.01 ; Tobacco abuse Z72.0 and PTSD (post-traumatic stress disorder) F43.10 [facility] [place] [id number] [place] [address] 23279- 4832 Jan, Fracture of fifth metatarsal bone of right foot S92.351A [facility] [id number] [place] [address] 23747- 8569 Jan, [facility] [address] [id number] [place] [address] 43584- 5928 Jan, History of high cholesterol Z86.39 [facility] [address] [id number] [place] [address] 49906- 0420 Jan, History of MN (myocardial infarction) I25.2 [place] [address] [id number] [place] [address] 13193- 2625 Jan, [facility] [id number] [place] [address] 50979- 1017 Dec, Back pain M54.9 ; Diabetes E11.9 ; Right knee pain M25.561 and Chest pain R07.9 [facility] [id number] [place] [address] 15328- 1105 Dec, [facility] [id number] [place] [address] 93289- 4605 Dec, [place] [address] [id number] [place] [address] 43676- 8955 Dec, Cervicalgia M54.2 [facility] [address] [id number] [place] [address] 30684- 0479 Dec, Bipolar 2 disorder F31.81 ; PTSD (post-traumatic stress disorder) F43.10 ; Panic disorder with agoraphobia F40.01 and Epilepsy G40.909 [facility] [place] [id number] [place] [address] 08485- 7031 Dec, Bipolar 2 disorder F31.81 ; PTSD (post-traumatic stress disorder) F43.10 and Panic disorder with agoraphobia F40.01 [place] [id number] [place] [address] 22832- 6744 Dec, Diabetes E11.9 [facility] [id number] [place] [address] 06453- 0328 Dec, [facility] [id number] [place] [address] 65653- 1609 Dec, Other chronic pain G89.29 ; Hepatitis C B19.20 and History of seizures Z87.898 [place] [id number] [place] [address] 98102- 8209 Dec, [place] [id number] [place] [address] 06186- 3930 Dec, Bipolar 2 disorder F31.81 and Other chronic pain G89.29 [place] [id number] [place] [address] 96652- 7784 Dec, Cervicalgia M54.2 and Diabetes E11.9 [facility] [id number] [place] [address] 32056- 5533 Dec, [facility] [id number] [place] [address] 81102- 9213 Dec, [facility] [id number] [place] [address] 41770- 1008 Dec, [facility] [id number] [place] [address] 78636- 7578 Dec, [facility] [id number] [place] [address] 34409- 6285 Dec, Type 2 diabetes mellitus without complications E11.9 [facility] [id number] [place] [address] 82742- 9952 10 Dec, 2015 [facility] [address] 95488- 4388 Dec, History of seizures Z87.898 and Hepatitis C B19.20 [facility] [id number] [place] [address] 87642- 3945 08 Dec, 2015 Hepatitis C B19.20 [facility] [facility] [id number] [place] [address] 93913- 7392 Dec, [facility] [id number] [place] [address] 44487- 9466 Dec, Cervicalgia M54.2 ; COPD (chronic obstructive pulmonary disease) J44.9 and Hepatitis C B19.20 [facility] [id number] [place] [address] 42672- 7921 Dec, Bipolar 2 disorder F31.81 ; History of hypertension Z86.79 ; History of anxiety Z86.59 ; Panic disorder with agoraphobia F40.01 and Epilepsy G40.909 [facility] [id number] [place] [address] 46875- 3988 Nov, [address] [place] [address] 87803- 2935 Nov, [address] 73667- 8804 Nov, History of seizures Z87.898 ; OAB (overactive bladder) N32.81 ; Lumbago M54.5 ; Other chronic pain G89.29 ; Cervicalgia M54.2 ; Tobacco abuse Z72.0 ; Tobacco abuse counseling Z71.6 and Impaired fasting glucose R73.01 [place] [id number] [place] [address] 63389- 4529 Nov, Bipolar 2 disorder F31.81 ; PTSD (post-traumatic stress disorder) F43.10 ; History of anxiety Z86.59 ; History of COPD Z87.09 ; Panic disorder with agoraphobia F40.01 and Moderate depressed bipolar I disorder F31.32 [place] [id number] [place] [address] 64303- 9628 Nov, PTSD (post-traumatic stress disorder) F43.10 [facility] [address] [place] [address] [id number] 11 Nov, 2015 Dental examination Z01.20 and Dental caries K02.9 [place] [id number] [place] [address] 57489- 2713 08 Nov, 2015 History of hypertension Z86.79 ; History of hypothyroidism Z86.39 ; History of high cholesterol Z86.39 ; History of COPD Z87.09 and Overactive bladder N32.81 [address] [place] [address] 63676- 2743 Nov, Bipolar 2 disorder F31.81 and PTSD (post-traumatic stress disorder) F43.10 [place] [id number] [place] [address] 57151- 6476 Nov, PTSD (post-traumatic stress disorder) F43.10 ; Panic disorder with agoraphobia F40.01 ; Epilepsy G40.909 and Moderate depressed bipolar I disorder F31.32 [place] [address] [place] [address] 92550- 8864 Nov, [place] [id number] [place] [address] 29407- 6786 Nov, [place] [id number] [place] [address] 42206- 6233 Oct, [place] [id number] [place] [address] 32071- 0339 Oct, Generalized anxiety disorder F41.1 ; Major depression, recurrent F33.9 and PTSD (post-traumatic stress disorder) F43.10 [place] [id number] [place] [address] 92203- 6361 Oct, Elevated fasting glucose R73.01 [place] [id number] [place] [address] 18305- 9481 Oct, Elevated fasting glucose R73.01 [facility] [id number] [place] [address] 05992- 9136 Oct, History of COPD Z87.09 [place] [id number] [place] [address] 64508- 4263 Oct, General medical exam Z00.00 ; History of hypertension Z86.79 ; History of hypothyroidism Z86.39 ; History of hepatitis Z86.19 ; History of high cholesterol Z86.39 and History of seizures Z87.898 [address] [place] [address] 55701- 5094 Oct, General medical exam Z00.00 ; History of hypertension Z86.79 ; History of hypothyroidism Z86.39 ; Bipolar 2 disorder F31.81 ; PTSD ( post-traumatic stress disorder) F43.10 ; History of hepatitis Z86.19 ; History of high cholesterol Z86.39 ; History of anxiety Z86.59 ; History of seizures Z87.898 ; History of MN (myocardial infarction) I25.2 and History of COPD Z87.09 [address] [address]- 2758 Oct, Generalized anxiety disorder F41.1 ; Depression F32.9 and PTSD (post-traumatic stress disorder) F43.10 [facility] [id number] [address]- 2994 Jan, [facility] [id number] [address]- 0253 Jan, [facility] [id number] [address]- 6736 Jun, [place] [address] [place] [id number] Jun, [facility] [address] [address]- 0678 May, [facility] [address] [address]- 2218 May, [place] [address] [place] [id number] May, [facility] [id number] [address]- 5392 May, [place] [address] [place] [id number] May, [facility] [id number] [address]- 0306 May, IMMUNIZATIONS No Known Immunizations SOCIAL HISTORY Never Assessed REASON FOR VISIT BS f/u PLAN OF CARE VITAL SIGNS MEDICATIONS Unknown Medications RESULTS No Results PROCEDURES No Known procedures INSTRUCTIONS MEDICATIONS ADMINISTERED No Known Medications MEDICAL (GENERAL) HISTORY Type Description Date Medical History Hypothyroidism Medical History High cholesterol Medical History Hypertension Medical History Brain seizure Medical History Asthma Medical History COPD Medical History Hep C -2005 Medical History MN x 2 last in 2009 Medical History PTSD (post-traumatic stress disorder) Medical History Colon Cancer 2017 Medical History diabites II Surgical History tonsillectomy 1985 Surgical History partial hysterectomy 2004 Surgical History appendectomy 2004 Hospitalization History Surgery(s) only Hospitalization History pneumonia x3 days Hospitalization History Heart cath with stint 05/15/2016 Hospitalization History Diverticulitis, N/V-[facility] 01/28/17
--- OUTSIDE RECORDS SUMMARY | 2019-01-26 07:09 | XMS REPORT ---
Author Author FRANK LUNA [facility] Address [address] [place] [address] Care Team Providers Care Networks Computer Consultant Name Role Phone FRANK LUNA Unavailable PROBLEMS Type Condition ICD9-CM Code [id number] Code Onset Dates Condition Status SNOMED Code Problem Other chronic pain G89.29 Active 37578973 Problem OAB (overactive bladder) N32.81 Active 129788428 Problem Tobacco abuse Z72.0 Active 72968615 Problem Cervicalgia M54.2 Active 50590013 Problem Lumbago M54.5 Active 468640786 Problem Hepatitis C B19.20 Active 34662006 Problem COPD (chronic obstructive pulmonary disease) J44.9 Active 62835494 Problem Diabetes E11.9 Active 82250407 Problem Type 2 diabetes mellitus without complications E11.9 Active 740747460 Problem Stress incontinence of urine N39.3 Active 84911289 Problem Bilateral claudication of lower limb I73.9 Active 969456556 Problem Seasonal allergic rhinitis due to other allergic trigger J30.89 Active 789449797 Problem Hypoglycemia E16.2 Active 082147818 Problem Hypertension, unspecified type I10 Active 21738858 Problem Bipolar affective disorder, currently depressed, mild F31.31 Active 304740166 Problem Hyperlipidemia, unspecified hyperlipidemia type E78.5 Active 09224781 Problem Fallen bladder N81.10 Active 848010161 Problem Chronic tension-type headache, not intractable G44.229 Active 717006978 Problem FCI 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 Active 268842538 Problem Type 2 diabetes mellitus with hyperglycemia E11.65 Active 313531908 Problem Bipolar 2 disorder F31.81 Active 09965707 Problem Chronic post-traumatic stress disorder (PTSD) F43.12 Active 581260761 Problem History of hypothyroidism Z86.39 Active 980907197 Problem Stress incontinence N39.3 Active 93973654 Problem El's esophageal ulceration K22.10 Active 676998982 Problem 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 mellitus without complication, without long -term 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 E11.9 Active 482801982 Problem Irritable bowel syndrome with diarrhea K58.0 Active 014927636 Problem Panic disorder with agoraphobia F40.01 Active 90737878 Problem Type 2 diabetes mellitus with hyperglycemia E11.65 Active 694027834 Problem Epilepsy G40.909 Active 90786390 Problem Hypertension, benign I10 Active 62129784 Problem History of RI (myocardial infarction) I25.2 Active 297570111 Problem Mood disorder F39 Active 48237686 Problem History of hypertension Z86.79 Active 455538398 Problem Uncontrolled type 2 diabetes mellitus without complication, without long-term 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 E11.65 Active 215294307 Problem History of high cholesterol Z86.39 Active 559893409 Problem Bipolar I disorder with mood-congruent psychotic features F31.9 Active 958067687 Problem History of seizures Z87.898 Active 514708524 Problem Bipolar I disorder with duy F31.10 Active 26092475 Problem Primary insomnia F51.01 Active 7351479 Problem Gastritis and duodenitis K29.90 Active 642332702 ALLERGIES No Information ENCOUNTERS Encounter Location Date Diagnosis [facility] [id number] [place] [address] 69406- 3846 17 Nov, 2018 [facility] [id number] [place] [address] 91045- 2086 Aug, [facility] [id number] [place] [address] 20625- 7296 Aug, [facility] [id number] [place] [address] 99398- 0215 Aug, Bipolar 2 disorder F31.81 ; Chronic post-traumatic stress disorder (PTSD) F43.12 and Panic disorder with agoraphobia F40.01 [facility] [id number] [place] [address] 97556- 0042 Aug, [facility] [id number] [place] [address] 30293- 6418 Jul, [facility] [address] 43954- 4526 Jul, Type 2 diabetes mellitus without complications E11.9 ; Fallen bladder N81.10 ; Stress incontinence of urine N39.3 ; Gall bladder disease K82.9 ; Periodontal abscess K05.219 ; Diarrhea, unspecified R19.7 ; Nausea with vomiting, unspecified R11.2 and Chronic tension-type headache, not intractable G44.229 [place] [address] 27170- 5987 Jul, [place] [address] 15782- 0439 Jul, [place] [address] 61883- 7304 Jul, [place] [address] 77208- 0657 Jul, Bipolar 2 disorder F31.81 ; Panic disorder with agoraphobia F40.01 and Chronic post-traumatic stress disorder (PTSD) F43.12 [facility] [id number] [place] [address] 02250- 1694 Jun, [place] [facility] [address] 16252- 9204 Jun, [facility] [id number] [place] [address] 86370- 5017 Jun, Lumbago M54.5 [facility] [address] 14967- 5617 Jun, Type 2 diabetes mellitus with hyperglycemia E11.65 [facility] [id number] [place] [address] 65656- 9095 Jun, [place] [address] 06731- 8527 Jun, Type 2 diabetes mellitus with hyperglycemia E11.65 ; El 's esophageal ulceration K22.10 and Lumbago M54.5 [place] [address] 02553- 6382 Jun, Type 2 diabetes mellitus with hyperglycemia E11.65 [facility] [address] [address] 1151 17 Jun, 2018 [facility] [id number] [place] [address] 61853- 6671 Jun, [facility] [id number] [place] [address] 38316- 6427 Jun, Bipolar affective disorder, currently depressed, mild F31.31 ; Chronic post-traumatic stress disorder (PTSD) F43.12 and Panic disorder with agoraphobia F40.01 [facility] [id number] [place] [address] 04247- 8131 Jun, [facility] [id number] [place] [address] 45002- 3198 Jun, [facility] [id number] [place] [address] 57767- 3484 Jun, Type 2 diabetes mellitus with hyperglycemia E11.65 [facility] [address] [address]- 3367 Jun, Uncontrolled type 2 diabetes mellitus with hyperglycemia E11.65 [facility] [id number] [place] [address] 48079- 3466 Jun, [facility] [id number] [place] [address] 34034- 5776 May, Lumbago M54.5 [facility] [address] [id number] May, [facility] [id number] [place] [address] 27919- 9140 May, [facility] [id number] [place] [address] 38168- 6631 May, [facility] [address] [address]- 7219 May, [facility] [address] [address]- 8277 May, [facility] [id number] [place] [address] 49962- 8266 May, [facility] [id number] [place] [address] 33633- 1536 May, [facility] [id number] [place] [address] 50999- 7983 May, Lumbago M54.5 [facility] [id number] [place] [address] 27667- 5245 May, [facility] [id number] [place] [address] 70178- [address] Apr, [address] of the chest R93.8 [facility] [id number] [place] [address] 50220- 8630 Apr, Bipolar 2 disorder F31.81 ; Chronic post-traumatic stress disorder (PTSD) F43.12 and Panic disorder with agoraphobia F40.01 [place] [id number] [place] [address] 14936- [address] Apr, [address] of the chest R93.8 [place] [id number] [place] [address] 97774- [address] Apr, [address] of the chest R93.8 [facility] [id number] [place] [address] 17630- 9398 Apr, [facility] [id number] [place] [address] 91540- 0457 Apr, Type 2 diabetes mellitus with hyperglycemia E11.65 [facility] [id number] [place] [address] 09384- 9034 Apr, 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 mellitus without complication, without long-term 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 E11.9 ; Watery eyes H04.203 ; Low back pain M54.5 ; Other chronic pain G89.29 ; Chronic tension-type headache, not intractable G44.229 ; Uncontrolled type 2 diabetes mellitus without complication , without long-term 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 E11.65 and Bronchitis J40 [facility] [id number] [place] [address] 17780- 1761 Apr, [facility] [id number] [place] [address] 05621- 0927 Apr, Lumbago M54.5 [place] [address] 88609- 0169 March, [facility] [id number] [place] [address] 29761 -9330 March, Cough R05 ; Pneumonia due to infectious organism, unspecified laterality, unspecified part of lung J18.9 and Non-intractable vomiting with nausea, unspecified vomiting type R11.2 [place] [address] 19796- 4268 March, Bronchitis J40 [facility] [id number] [place] [address] 72763- 6715 March, [place] [address] 13233- 6787 March, El's esophageal ulceration K22.10 and Type 2 diabetes mellitus with hyperglycemia E11.65 [facility] [id number] [place] [address] 45418- 1042 March, Panic disorder with agoraphobia F40.01 ; Chronic post- traumatic stress disorder (PTSD) F43.12 and Bipolar 2 disorder F31.81 [facility] [id number] [place] [address] 82531- 4197 March, Type 2 diabetes mellitus with hyperglycemia E11.65 [facility] [id number] [place] [address] 90999- 0489 March, [facility] [id number] [place] [address] 18991- 6448 March, Lumbago M54.5 [facility] [id number] [place] [address] 28494- 6952 March, [facility] [id number] [place] [address] 22341- 6520 March, Irritable bowel syndrome with diarrhea K58.0 ; Primary insomnia F51.01 ; Type 2 diabetes mellitus with hyperglycemia E11.65 and termination clerk 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 [facility] [id number] [place] [address] 01707- 2149 March, [facility] [id number] [place] [address] 47823- 7142 Jan, [facility] [id number] [place] [address] 17862- 5613 Jan, [place] [address] 71000- 0999 Jan, [facility] [id number] [place] [address] 00855- 4307 Jan, [facility] [id number] [place] [address] 60418- 7889 Jan, Dizziness R42 [facility] [id number] [place] [address] 76121- 5486 Jan, Bipolar affective disorder, currently depressed, mild F31.31 ; Panic disorder with agoraphobia F40.01 and Chronic post-traumatic stress disorder (PTSD) F43.12 [facility] [id number] [place] [address] 00023- 9241 Jan, Dizziness R42 [facility] [id number] [place] [address] 80025- 0271 Jan, Chest pain, unspecified type R07.9 ; Exertional dyspnea R06.09 ; Hypertension, unspecified type I10 and Hyperlipidemia, unspecified hyperlipidemia type E78.5 [facility] [id number] [place] [address] 21007- 5609 Jan, [facility] [id number] [place] [address] 38668- 3680 09 Jan, 2018 Lumbago M54.5 [facility] [id number] [place] [address] 85119- 0016 04 Jan, 2018 El's esophageal ulceration K22.10 ; Blister (nonthermal ) of oral cavity, initial encounter S00.522A ; Local infection of the skin and subcutaneous tissue, unspecified L08.9 ; Type 2 diabetes mellitus with hyperglycemia E11.65 ; termination clerk 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 and Stress incontinence N39.3 [facility] [id number] [place] [address] 40947- 8402 27 Dec, 2017 [facility] [id number] [place] [address] 04453- 6205 27 Dec, 2017 [facility] [id number] [place] [address] 15492- 3105 19 Dec, 2017 [facility] [id number] [place] [address] [phone] 16 Dec, 2017 Dental examination Z01.20 [facility] [facility] [id number] [place] [address] 27909- 7045 15 Dec, 2017 Acute pain of right knee M25.561 [facility] [facility] [id number] [place] [address] 75082- 3763 14 Dec, 2017 [facility] [id number] [place] [address] 52302- 3700 14 Dec, 2017 [facility] [address] [place] [address] 31137- 7875 14 Dec, 2017 Lumbago M54.5 ; Acute pain of right knee M25.561 and Seasonal allergic rhinitis due to other allergic trigger J30.89 [facility] [address], [place] [address]- 5885 12 Dec, 2017 Type 2 diabetes mellitus with hyperglycemia E11.65 [facility] [id number] [address]- 3338 Dec, [facility] [id number] [place] [address] 07646- 7996 Dec, [facility] [address], [place] [address]- 3484 Dec, [facility] [id number] [place] [address] 46456- 0863 Dec, [facility] [id number] [place] [address] 90480- 2010 Dec, Chronic post-traumatic stress disorder (PTSD) F43.12 and Panic disorder with agoraphobia F40.01 [facility] [id number] [place] [address] 81752- 1485 13 Dec, 2017 Low back pain M54.5 [facility] [id number] [place] [address] 69104- 3365 Dec, Type 2 diabetes mellitus with hyperglycemia E11.65 ; termination clerk 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 ; Low back pain M54.5 ; Other chronic pain G89.29 and Encounter for therapeutic drug level monitoring Z51.81 [facility] [address] [address]- 8800 09 Dec, 2017 Coughing R05 [facility] [address] [address]- 6862 Dec, [facility] [id number] [place] [address] [phone] 07 Dec, 2017 Dental examination Z01.20 [facility] [id number] [place] [address] 30058- 3630 Nov, Type 2 diabetes mellitus without complications E11.9 and Encounter for therapeutic drug level monitoring Z51.81 [facility] [address] [address]- 6011 Nov, [facility] [id number] [address]- 7246 Oct, Type 2 diabetes mellitus without complications E11.9 [facility] [id number] [place] [address] 43402- 4168 Oct, Type 2 diabetes mellitus with hyperglycemia E11.65 [facility] [id number] [place] [address] 78343- 0510 Aug, Type 2 diabetes mellitus without complications E11.9 [facility] [id number] [place] [address] 91837- 7999 Aug, Type 2 diabetes mellitus without complications E11.9 ; Hypoglycemia E16.2 ; Lumbago M54.5 ; Stress incontinence of urine N39.3 and History of RI (myocardial infarction) I25.2 [facility] [id number] [place] [address] 46596- 7817 Jun, [facility] [id number] [place] [address] 61258- 4162 May, [facility] [id number] [place] [address] 55005- 4729 Apr, Panic disorder with agoraphobia F40.01 [facility] [id number] [place] [address] 00076- 5019 Apr, Panic disorder with agoraphobia F40.01 [facility] [place] [id number] [place] [address] 01706- 9876 Apr, [facility] [id number] [place] [address] 76892- 8627 March, Other chronic pain G89.29 [facility] [id number] [place] [address] 96762- 8154 March, [facility] [id number] [place] [address] 52697- 6913 March, [facility] [place] [id number] [place] [address] 70371- 9368 March, [place] [address], [place] [address]- 6295 March, [facility] [id number] [place] [address]- 2284 March, Type 2 diabetes mellitus without complications E11.9 [facility] [id number] [place] [address]- 4995 March, Diarrhea, unspecified type R19.7 [facility] [id number] [place] [address] 40503- 2046 March, Bipolar 2 disorder F31.81 ; Chronic post-traumatic stress disorder (PTSD) F43.12 and Type 2 diabetes mellitus with hyperglycemia E11.65 [facility] [address], [place] [address]- 7887 March, [facility] [id number] [place] [address] 92494- 0475 March, [facility] [address], [place] [address]- 2755 09 Mar, 2017 Hypertension, benign I10 ; Type 2 diabetes mellitus with hyperglycemia E11.65 ; Hepatitis C B19.20 ; Gastritis and duodenitis K29.90 and Dysuria R30.0 [facility] [address], [place] [address]- 5344 March, Hypertension, benign I10 ; Type 2 diabetes mellitus with hyperglycemia E11.65 ; Hepatitis C B19.20 ; Gastritis and duodenitis K29.90 and Dysuria R30.0 [facility] [facility] [address], [place] [address]- 8667 March, Panic disorder with agoraphobia F40.01 ; Chronic post- traumatic stress disorder (PTSD) F43.12 ; Epilepsy G40.909 and Bipolar I disorder with mood-congruent psychotic features F31.9 [facility] [address], [place] [address]- 3892 March, [place] [address], [place] [address]- 7715 March, Type 2 diabetes mellitus with hyperglycemia E11.65 [facility] [id number] [place] [address] 29598 2546 18 Jan, 2017 Bipolar I disorder with duy F31.10 [facility] [id number] [place] [address] 31493- 5966 17 Jan, 2017 Bipolar 2 disorder F31.81 ; Chronic post-traumatic stress disorder (PTSD) F43.12 and Type 2 diabetes mellitus with hyperglycemia E11.65 [facility] [id number] [place] [address] 56334- 8553 Jan, [facility] [id number] [place] [address] 96103- 8279 Jan, [place] [place] [id number] [place] [address] 49632- 4790 14 Jan, 2017 Panic disorder with agoraphobia F40.01 [facility] [place] [id number] [place] [address] 12657- 9449 13 Jan, 2017 Panic disorder with agoraphobia F40.01 ; Bipolar I disorder with mood-congruent psychotic features F31.9 ; Chronic post-traumatic stress disorder (PTSD) F43.12 and Epilepsy G40.909 [place] [address], [place] [address]- 8466 Jan, [facility] [address], [place] [address] 2545 Jan, [facility] [address], [place] [address]- 2597 10 Jan, 2017 Type 2 diabetes mellitus without complications E11.9 and Hypoglycemia E16.2 [facility] [address], [place] [address]- 2549 07 Jan, 2017 Type 2 diabetes mellitus without complications E11.9 ; Primary insomnia F51.01 and Hypertension, benign I10 [place] [address], [place] [address]- 8781 Jan, [facility] [id number] [place] [address] [id number] Jan, [facility] [address], [place] [address]- 7163 Dec, Type 2 diabetes mellitus with hyperglycemia E11.65 [facility] [id number] [place] [address] 24891- 6796 Dec, [facility] [id number] [place] [address] 38918- 2379 Dec, Bipolar 2 disorder F31.81 ; Panic disorder with agoraphobia F40.01 ; Chronic post-traumatic stress disorder (PTSD) F43.12 and Epilepsy G40.909 [place] [address] [address]- 7797 Dec, [facility] [id number] [place] [address] 91368- 4715 Dec, [facility] [address], [place] [address]- 6263 Dec, Bipolar 2 disorder F31.81 ; Panic disorder with agoraphobia F40.01 ; Chronic post-traumatic stress disorder (PTSD) F43.12 and Epilepsy G40.909 [facility] [address], [place] [address]- 5031 Dec, [facility] [address], [place] [address]- 9850 Dec, [facility] [id number] [place] [address] 13365- 2360 Dec, [facility] [id number] [place] [address] 96443- 1232 Dec, Type 2 diabetes mellitus with hyperglycemia E11.65 ; termination clerk 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 and Lumbago M54.5 [facility] [id number] [place] [address] 33492- 4983 Dec, [facility] [id number] [place] [address] 83702- 8131 Dec, [facility] [id number] [place] [address] 58882- 9463 Dec, [facility] [id number] [place] [address] 93031 -9241 Dec, Pain of left leg M79.605 and Pain in right leg M79.604 [facility] [id number] [place] [address] 56761- 7171 Dec, [facility] [id number] [place] [address] 62995- 3771 Dec, Type 2 diabetes mellitus with hyperglycemia E11.65 [facility] [id number] [place] [address] 09683- 5280 Dec, [facility] [id number] [place] [address] 10804- 9883 Dec, Type 2 diabetes mellitus with hyperglycemia E11.65 ; [facility] 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 ; Vagina, candidiasis B37.3 and Other chronic pain G89.29 [facility] [id number] [place] [address] 84992- 7626 Nov, Panic disorder with agoraphobia F40.01 [facility] [id number] [place] [address] 09637- 8143 Nov, [facility] [id number] [place] [address] 41355- 6479 Nov, [facility] [id number] [place] [address] 74116- 8871 Nov, Hypoglycemia E16.2 [facility] [id number] [place] [address] 46290- 1446 Nov, [facility] [id number] [phone] Nov, [facility] [id number] [place] [address] [phone] Nov, [facility] [id number] [place] [address] [phone] Nov, Type 2 diabetes mellitus with hyperglycemia E11.65 and termination clerk 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 [place] [id number] [place] [address] [phone] Nov, Panic disorder with agoraphobia F40.01 ; Bipolar 2 disorder F31.81 ; Chronic post-traumatic stress disorder (PTSD) F43.12 and Epilepsy G40.909 [facility] [id number] [place] [address] 97420- 1273 Nov, Panic disorder with agoraphobia F40.01 [facility] [id number] [place] [address] 71531- 2441 Oct, [facility] [id number] [place] [address] 35005- 4997 Oct, [place] [id number] [place] [address] 81530- 0698 Oct, Bipolar 2 disorder F31.81 ; Panic disorder with agoraphobia F40.01 and Mood disorder F39 [facility] [id number] [place] [address] 70020- 6108 Oct, Diabetes E11.9 ; Type 2 diabetes mellitus with hyperglycemia E11.65 and FCI 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 [facility] [id number] [place] [address] 02071- 6428 Oct, [facility] [id number] [place] [address] 32303- 3574 Sep, [facility] [id number] [place] [address] 80514- 0270 Sep, Bipolar 2 disorder F31.81 and Mood disorder F39 [facility] [id number] [place] [address] 88512- 3067 Sep, [facility] [id number] [place] [address] 06858- 9250 Sep, Uncontrolled type 2 diabetes mellitus without complication, without long-term current use of insulin E11.65 [facility] [id number] [place] [address] 70059- 3136 Sep, [facility] [id number] [place] [address] 78993- 7924 Sep, [facility] [id number] [place] [address] 84623- 0962 Sep, [facility] [id number] [place] [address] 10639- 1217 Sep, [facility] [id number] [place] [address] 42535- 4887 Sep, Bipolar 2 disorder F31.81 ; Chronic post-traumatic stress disorder (PTSD) F43.12 ; Panic disorder with agoraphobia F40.01 and Epilepsy G40.909 [facility] [id number] [place] [address] 54125- 2229 Sep, Bipolar 2 disorder F31.81 ; PTSD (post-traumatic stress disorder) F43.10 and Panic disorder with agoraphobia F40.01 [facility] [id number] [place] [address] 01075- 9453 Sep, [facility] [id number] [place] [address] 30784- 4933 28 Aug, 2016 History of seizures Z87.898 ; Panic disorder with agoraphobia F40.01 and Bipolar 2 disorder F31.81 [facility] [id number] [place] [address] 16887- 6868 Aug, [facility] [id number] [place] [address] 24399- 3000 17 Aug, 2016 [facility] [id number] [place] [address] 32161- 1422 Aug, [facility] [address] 17058- 9105 Aug, [facility] [address] 33685- 4690 Aug, [facility] [address] 38058- 9347 Aug, [facility] [address] 47029- 4533 10 Aug, 2016 Hypoglycemia E16.2 and Bilateral impacted cerumen H61.23 [facility] [address] 49329- 8546 Aug, [facility] [address] 05065- 3595 Jul, [facility] [address] 40576- 1286 Jul, [facility] [id number] [place] [address] 01555- 7277 15 Jul, 2016 Bipolar 2 disorder F31.81 ; Panic disorder with agoraphobia F40.01 ; PTSD (post-traumatic stress disorder) F43.10 and Epilepsy G40.909 [facility] [id number] [place] [address] 51655- 4177 12 Jul, 2016 [facility] [id number] [place] [address] 60853- 3976 09 Jul, 2016 Type 2 diabetes mellitus without complications E11.9 and Coughing R05 [facility] [id number] [place] [address] 38697- 8415 06 Jul, 2016 [facility] [id number] [place] [address] 65832- 7311 Jun, [facility] [address] [address]- 4859 Jun, Bipolar 2 disorder F31.81 ; PTSD (post-traumatic stress disorder) F43.10 and Panic disorder with agoraphobia F40.01 [facility] [id number] [place] [address] 29222- 9456 Jun, [facility] [address] 47956- 1359 Jun, [facility] [id number] [place] [address] 49354- 7099 Jun, [facility] [address] 48739- 1650 Jun, Type 2 diabetes mellitus without complications E11.9 and COPD (chronic obstructive pulmonary disease) J44.9 [facility] [id number] [place] [address] [id number] May, Dental examination Z01.20 and Dental caries K02.9 [facility] [id number] [place] [address] 46155- 9006 May, Bipolar 2 disorder F31.81 ; PTSD (post-traumatic stress disorder) F43.10 and Panic disorder with agoraphobia F40.01 [facility] [id number] [place] [address] 04145- 2592 May, Lumbago with sciatica, right side M54.41 ; Other chronic pain G89.29 and Uncontrolled type 2 diabetes mellitus without complication, without long-term current use of insulin E11.65 [facility] [id number] [place] [address] 40649- 3819 May, Chronic bronchitis, unspecified chronic bronchitis type J42 [facility] [id number] [place] [address] 59072- 5512 May, [facility] [id number] [place] [address] 06855- 1964 May, [facility] [id number] [place] [address] 26071- 3041 13 May, 2016 Chest pain, unspecified type [...] limb I73.9 and Bipolar 2 disorder F31.81 [facility] [id number] [place] [address] 79648- 7542 May, Bipolar 2 disorder F31.81 ; Panic disorder with agoraphobia F40.01 and Tobacco abuse Z72.0 [facility] [address] 87712- 0849 Apr, [address] 73169- 3494 Apr, [facility] [address] 42832- 2157 Apr, [facility] [address] 75901- 6046 Apr, Bipolar 2 disorder F31.81 ; Panic disorder with agoraphobia F40.01 and PTSD (post-traumatic stress disorder) F43.10 [facility] [id number] [place] [address] 87121- 7706 Apr, Chronic bronchitis, unspecified chronic bronchitis type J42 ; Cervical neuritis M54.12 and Thoracic neuritis M54.[address] 44250- 5845 Apr, [facility] [address] 86541- 8326 Apr, Cervicalgia M54.[address] 31304- 3223 14 Apr, 2016 Bipolar 2 disorder F31.81 ; Panic disorder with agoraphobia F40.01 and PTSD (post-traumatic stress disorder) F43.10 [facility] [id number] [place] [address] 54946 -6159 Apr, [facility] [id number] [place] [address] 46045 -9129 09 Apr, 2016 Cough R05 and Tobacco dependence F17.200 [facility] [id number] [place] [address] 91970- 4513 Apr, [facility] [address] 62314- 1484 Apr, [facility] [id number] [place] [address] 22624- 9102 March, Bipolar 2 disorder F31.81 ; Panic disorder with agoraphobia F40.01 and Generalized anxiety disorder F41.1 [facility] [id number] [place] [address] 60872- 0283 March, Closed displaced fracture of fifth metatarsal bone of right foot with routine healing, subsequent encounter S92.351D [facility] [id number] [place] [address] 90734- 0635 March, Bronchitis J40 [facility] [id number] [place] [address] 46175- 1598 March, [facility] [id number] [place] [address] 48997- 6418 March, [facility] [id number] [place] [address] 09666- 6042 March, Foot pain, right M79.671 ; Cervicalgia M54.2 and 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 mellitus without complication, unspecified skilled nursing insulin use status E11.9 [facility] [id number] [place] [address] 04062- 9623 March, Fracture of fifth metatarsal bone of right foot S92.351A [facility] [id number] [place] [address] 90912- 7325 March, [facility] [id number] [place] [address] 86739- 5077 Jan, Fracture of fifth metatarsal bone of right foot S92.351A [facility] [id number] [place] [address] 75393- 0956 Jan, Bipolar 2 disorder F31.81 ; PTSD (post-traumatic stress disorder) F43.10 ; Panic disorder with agoraphobia F40.01 and Epilepsy G40.909 [facility] [id number] [place] [address] 35397- 3791 Jan, History of RI (myocardial infarction) I25.2 and History of high cholesterol Z86.39 [facility] [id number] [place] [address] 92502- 7633 Jan, Bipolar 2 disorder F31.81 ; Panic disorder with agoraphobia F40.01 ; Tobacco abuse Z72.0 and PTSD (post-traumatic stress disorder) F43.10 [facility] [id number] [place] [address] 80191- 2365 Jan, Fracture of fifth metatarsal bone of right foot S92.351A [facility] [id number] [place] [address] 73765- 7281 Jan, [facility] [id number] [place] [address] 29859- 6483 Jan, History of high cholesterol Z86.39 [facility] [id number] [place] [address] 03450- 1714 Jan, History of RI (myocardial infarction) I25.2 [facility] [id number] [place] [address] 06016- 1146 Jan, [facility] [id number] [place] [address] 84505- 8394 Dec, Back pain M54.9 ; Diabetes E11.9 ; Right knee pain M25.561 and Chest pain R07.9 [facility] [address] 76487- 5701 Dec, [facility] [id number] [place] [address] 75527- 4404 Dec, [facility] [address] 73411- 4268 Dec, Cervicalgia M54.2 [facility] [address] 13861- 7882 Dec, Bipolar 2 disorder F31.81 ; PTSD (post-traumatic stress disorder) F43.10 ; Panic disorder with agoraphobia F40.01 and Epilepsy G40.909 [facility] [place] [address] 20733- 1993 Dec, Bipolar 2 disorder F31.81 ; PTSD (post-traumatic stress disorder) F43.10 and Panic disorder with agoraphobia F40.01 [facility] [id number] [place] [address] 69871- 3265 Dec, Diabetes E11.9 [facility] [id number] [place] [address] 27071- 5941 Dec, [facility] [id number] [place] [address] 49813- 5761 Dec, Other chronic pain G89.29 ; Hepatitis C B19.20 and History of seizures Z87.898 [facility] [id number] [place] [address] 38242- 4947 Dec, [facility] [address] 07895- 8265 Dec, Bipolar 2 disorder F31.81 and Other chronic pain G89.29 [facility] [id number] [place] [address] 51227- 2314 Dec, Cervicalgia M54.2 and Diabetes E11.9 [facility] [id number] [place] [address] 69644- 1610 Dec, [facility] [id number] [place] [address] 45272- 9028 Dec, [facility] [id number] [place] [address] 41771- 0229 Dec, [facility] [address] 42113- 4928 Dec, [facility] [id number] [place] [address] 00174- 0018 Dec, Type 2 diabetes mellitus without complications E11.9 [facility] [address] 96343- 0732 Dec, [facility] [address] 82249- 6065 Dec, History of seizures Z87.898 and Hepatitis C B19.20 [facility] [id number] [place] [address] 85848- 9575 08 Dec, 2015 Hepatitis C B19.20 [facility] [id number] [place] [address] 25715- 9629 Dec, [facility] [id number] [place] [address] 99054- 9951 Dec, Cervicalgia M54.2 ; COPD (chronic obstructive pulmonary disease) J44.9 and Hepatitis C B19.20 [facility] [id number] [place] [address] 89162- 3728 Dec, Bipolar 2 disorder F31.81 ; History of hypertension Z86.79 ; History of anxiety Z86.59 ; Panic disorder with agoraphobia F40.01 and Epilepsy G40.909 [facility] [id number] [place] [address] 03406- 5124 Nov, [facility] [id number] [place] [address] 18639- 5673 Nov, [place] [id number]- 4831 Nov, History of seizures Z87.898 ; OAB (overactive bladder) N32.81 ; Lumbago M54.5 ; Other chronic pain G89.29 ; Cervicalgia M54.2 ; Tobacco abuse Z72.0 ; Tobacco abuse counseling Z71.6 and Impaired fasting glucose R73.01 [facility] [id number] [place] [address] 76154- 7073 Nov, Bipolar 2 disorder F31.81 ; PTSD (post-traumatic stress disorder) F43.10 ; History of anxiety Z86.59 ; History of COPD Z87.09 ; Panic disorder with agoraphobia F40.01 and Moderate depressed bipolar I disorder F31.32 [place] [id number] [place] [address] 59465- 1449 12 Nov, 2015 PTSD (post-traumatic stress disorder) F43.10 [facility] [id number] [place] [address] [id number] Nov, 2015 Dental examination Z01.20 and Dental caries K02.9 [place] [id number] [place] [address] 37467- 8862 08 Nov, 2015 History of hypertension Z86.79 ; History of hypothyroidism Z86.39 ; History of high cholesterol Z86.39 ; History of COPD Z87.09 and Overactive bladder N32.81 [facility] [id number] [place] [address] 64230- 5756 Nov, Bipolar 2 disorder F31.81 and PTSD (post-traumatic stress disorder) F43.10 [place] [id number] [place] [address] 95238- 6063 Nov, PTSD (post-traumatic stress disorder) F43.10 ; Panic disorder with agoraphobia F40.01 ; Epilepsy G40.909 and Moderate depressed bipolar I disorder F31.32 [facility] [place] [id number] [place] [address] 35896- 7016 Nov, [facility] [id number] [place] [address] 00654- 7620 Nov, [facility] [id number] [place] [address] 13970- 1754 Oct, [facility] [id number] [place] [address] 02333- 6717 Oct, Generalized anxiety disorder F41.1 ; Major depression, recurrent F33.9 and PTSD (post-traumatic stress disorder) F43.10 [facility] [id number] [place] [address] 15267- 4373 Oct, Elevated fasting glucose R73.01 [place] [id number] [place] [address] 75959- 5054 Oct, Elevated fasting glucose R73.01 [facility] [id number] [place] [address] 88892- 4260 Oct, History of COPD Z87.09 [place] [id number] [place] [address] 12141- 1229 Oct, General medical exam Z00.00 ; History of hypertension Z86.79 ; History of hypothyroidism Z86.39 ; History of hepatitis Z86.19 ; History of high cholesterol Z86.39 and History of seizures Z87.898 [place] [id number] [place] [address] 21490- 8959 Oct, General medical exam Z00.00 ; History of hypertension Z86.79 ; History of hypothyroidism Z86.39 ; Bipolar 2 disorder F31.81 ; PTSD ( post-traumatic stress disorder) F43.10 ; History of hepatitis Z86.19 ; History of high cholesterol Z86.39 ; History of anxiety Z86.59 ; History of seizures Z87.898 ; History of RI (myocardial infarction) I25.2 and History of COPD Z87.[address] [place] [id number] [address]- 7336 Oct, Generalized anxiety disorder F41.1 ; Depression F32.9 and PTSD (post-traumatic stress disorder) F43.10 [facility] [id number] [address]- 7468 Jan, [facility] [id number] [address]- 6608 Jan, [facility] [address] [place] [address]- 8876 Jun, [place] [address] [place] [id number] Jun, [facility] [id number] [address]- 0053 May, [facility] [address] [address]- 0527 May, [place] [place] [id number] May, [facility] [id number] [address]- 0376 May, [address] [id number] May, [facility] [id number] [address]- 0296 May, IMMUNIZATIONS No Known Immunizations SOCIAL HISTORY Never Assessed REASON FOR VISIT xanax refill 08/10/2018 PLAN OF CARE VITAL SIGNS MEDICATIONS Medication Instructions Dosage Frequency Start Date End Date Duration Status Xanax 2 MG Orally 3 times a day and can take 1/2 additional tablet for panic. Must last 28 days 1 tablet 28 days Active RESULTS No Results PROCEDURES [...] History tonsillectomy 1985 Surgical History partial hysterectomy 2005 Surgical History appendectomy 2005 Hospitalization History Surgery(s) only Hospitalization History pneumonia x3 days Hospitalization History Heart cath with stint 05/15/2016 Hospitalization History Diverticulitis, N/[facility] 01/28/17
--- OUTSIDE RECORDS SUMMARY | 2019-01-26 07:10 | XMS REPORT ---
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 Name Role Phone FRANK LUNA Unavailable PROBLEMS Type Condition ICD9-CM Code QIN85-LU Code Onset Dates Condition Status SNOMED Code Problem Other chronic pain G89.29 Active 18995202 Problem OAB (overactive bladder) N32.81 Active 160893454 Problem Tobacco abuse Z72.0 Active 31952929 Problem Cervicalgia M54.2 Active 99484993 Problem Lumbago M54.5 Active 778937834 Problem Hepatitis C B19.20 Active 14698589 Problem COPD (chronic obstructive pulmonary disease) J44.9 Active 91127925 Problem Diabetes E11.9 Active 51992045 Problem Type 2 diabetes mellitus without complications E11.9 Active 075930992 Problem Stress incontinence of urine N39.3 Active 03229935 Problem Bilateral claudication of lower limb I73.9 Active 536152103 Problem Seasonal allergic rhinitis due to other allergic trigger J30.89 Active 277542606 Problem Hypoglycemia E16.2 Active 520996187 Problem Hypertension, unspecified type I10 Active 76721106 Problem Bipolar affective disorder, currently depressed, mild F31.31 Active 140744041 Problem Hyperlipidemia, unspecified hyperlipidemia type E78.5 Active 97454569 Problem Fallen bladder N81.10 Active 740229323 Problem Chronic tension-type headache, not intractable G44.229 Active 832616280 Problem 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 Active 548190581 Problem Type 2 diabetes mellitus with hyperglycemia E11.65 Active 443321610 Problem Bipolar 2 disorder F31.81 Active 58747054 Problem Chronic post-traumatic stress disorder (PTSD) F43.12 Active 064868538 Problem History of hypothyroidism Z86.39 Active 281889837 Problem Stress incontinence N39.3 Active 38638306 Problem El's esophageal ulceration K22.10 Active 805674157 Problem 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 mellitus without complication, without long -term current use of insulin E11.9 Active 385253987 Problem Irritable bowel syndrome with diarrhea K58.0 Active 029507066 Problem Panic disorder with agoraphobia F40.01 Active 31655445 Problem Type 2 diabetes mellitus with hyperglycemia E11.65 Active 040990243 Problem Epilepsy G40.909 Active 98593614 Problem Hypertension, benign I10 Active 64230568 Problem History of [place] (myocardial infarction) I25.2 Active 325079356 Problem Mood disorder F39 Active 66065864 Problem History of hypertension Z86.79 Active 350026709 Problem Uncontrolled type 2 diabetes mellitus without complication, without long-term current use of insulin E11.65 Active 764161248 Problem History of high cholesterol Z86.39 Active 598967583 Problem Bipolar I disorder with mood-congruent psychotic features F31.9 Active 885446055 Problem History of seizures Z87.898 Active 591027104 Problem Bipolar I disorder with duy F31.10 Active 98762032 Problem Primary insomnia F51.01 Active 2425219 Problem Gastritis and duodenitis K29.90 Active 253221061 ALLERGIES Substance Reaction Event Type Date Status Penicillin V Potassium Unknown Drug Allergy Jul, Active Metformin HCl diarrhea Drug Allergy 13 Jul, 2018 Active Macrobid stomach upset Drug Allergy Jul, Active Iodine anaphylaxis Drug Allergy Jul, Active Fentanyl halucinations/insomnia Drug Allergy Jul, Active ENCOUNTERS Encounter Location Date Diagnosis [facility] [id number], [place] [address] 17 Nov, 2018 [facility] [id number] [place] [address] 23133- 7760 Aug, [facility] [id number] [place] [address] 57199- 9574 Jul, [facility] [id number] [place] [address] 36634- 3288 Jul, Type 2 diabetes mellitus without complications E11.9 ; Fallen bladder N81.10 ; Stress incontinence of urine N39.3 ; Gall bladder disease K82.9 ; Periodontal abscess K05.219 ; Diarrhea, unspecified R19.7 ; Nausea with vomiting, unspecified R11.2 and Chronic tension-type headache, not intractable G44.229 [facility] [id number] [place] [address] 74394- 2819 Jul, [facility] [id number] [place] [address] 31996- 9679 Jul, [facility] [id number] [place] [address] 87121- 7970 Jul, [facility] [address] 25322- 3398 Jul, Bipolar 2 disorder F31.81 ; Panic disorder with agoraphobia F40.01 and Chronic post-traumatic stress disorder (PTSD) F43.12 [facility] [id number] [place] [address] 61529- 3777 Jun, [facility] [id number] [place] [address] 37705- 9239 Jun, [facility] [id number] [place] [address] 77693- 7281 Jun, Lumbago M54.5 [facility] [id number] [place] [address] 32793- 6992 Jun, Type 2 diabetes mellitus with hyperglycemia E11.65 [facility] [id number] [place] [address] 70106- 0058 Jun, [facility] [id number] [place] [address] 51702- 2020 Jun, Type 2 diabetes mellitus with hyperglycemia E11.65 ; El 's esophageal ulceration K22.10 and Lumbago M54.5 [facility] [id number] [place] [address] 40369- 0338 Jun, Type 2 diabetes mellitus with hyperglycemia E11.65 [facility] [id number] [place] [address] 46598- 7704 Jun, [facility] [address] 82296- 2176 Jun, [facility] [address] [facility] [id number] [address] 8867 Jun, Bipolar affective disorder, currently depressed, mild F31.31 ; Chronic post-traumatic stress disorder (PTSD) F43.12 and Panic disorder with agoraphobia F40.01 [facility] [address] [facility] [id number], [place] [address] 6963 Jun, [facility] [address] [facility] [id number] [address] 0246 Jun, [facility] [address] [facility] [id number] [place] [address] 49965- 7188 Jun, Type 2 diabetes mellitus with hyperglycemia E11.65 [facility] [id number], [place] [address] 4069 Jun, Uncontrolled type 2 diabetes mellitus with hyperglycemia E11.65 [facility] [id number], [place] [address] 3349 Jun, [facility] [id number], [place] [address] 6783 May, Lumbago M54.5 [facility] [id number] [id number] May, [facility] [id number], [place] [address] 0245 May, [facility] [id number], [place] [address] 4747 May, [facility] [id number], [place] [address] 2730 May, [facility] [id number], [place] [address]- 2416 May, [facility] [id number], [place] [address] 0718 May, [facility] [id number] [place] [address] 99927- 7316 May, [facility] [id number] [place] [address] 94218- 6192 May, Lumbago M54.5 [facility] [id number] [place] [address] 75620- 5185 May, [facility] [id number] [place] [address] 57438- [address], [address] of the chest R93.8 [facility] [id number] [place] [address] 81381- 5374 Apr, Bipolar 2 disorder F31.81 ; Chronic post-traumatic stress disorder (PTSD) F43.12 and Panic disorder with agoraphobia F40.01 [facility] [id number] [place] [address] 48229- [address] Apr, [address] of the chest R93.8 [facility] [id number] [place] [address] 08307- [address] Apr, [address] of the chest R93.8 [facility] [id number] [place] [address] 89983- 1805 Apr, [facility] [id number] [place] [address] 59179- 5620 Apr, Type 2 diabetes mellitus with hyperglycemia E11.65 [facility] [id number] [place] [address] 91855- 6050 Apr, 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 mellitus without complication, without long-term current use of insulin E11.9 ; Watery eyes H04.203 ; Low back pain M54.5 ; Other chronic pain G89.29 ; Chronic tension-type headache, not intractable G44.229 ; Uncontrolled type 2 diabetes mellitus without complication , without long-term current use of insulin E11.65 and Bronchitis J40 [facility] [id number] [place] [address] 58660- 3053 Apr, [facility] [place] [id number], [place] [address]- 6152 Apr, Lumbago M54.5 [facility] [id number] [address] 7949 March, [facility] [id number], [place] [address] March, Cough R05 ; Pneumonia due to infectious organism, unspecified laterality, unspecified part of lung J18.9 and Non-intractable vomiting with nausea, unspecified vomiting type R11.2 [facility] [id number] [place] [address] 32255- 1197 March, Bronchitis J40 [facility] [id number] [place] [address] 39063- 9366 March, [facility] [id number] [place] [address] 13685- 6445 March, El's esophageal ulceration K22.10 and Type 2 diabetes mellitus with hyperglycemia E11.65 [facility] [id number], [place] [address]- 4594 March, Panic disorder with agoraphobia F40.01 ; Chronic post- traumatic stress disorder (PTSD) F43.12 and Bipolar 2 disorder F31.81 [facility] [id number], [place] [address]- 8255 March, Type 2 diabetes mellitus with hyperglycemia E11.65 [facility] [id number], [place] [address]- 5534 March, [facility] [id number], [place] [address]- 1513 March, Lumbago M54.5 [facility] [id number], [place] [address]- 7726 March, [facility] [id number] [place] [address] 77849- 0125 March, Irritable bowel syndrome with diarrhea K58.0 ; Primary insomnia F51.01 ; Type 2 diabetes mellitus with hyperglycemia E11.65 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 [facility] [address] 09854- 8975 March, [facility] [address] 74188- 8050 Jan, [facility] [address] 13518- 3992 Jan, [place] [facility] [address] 76722- 6803 Jan, [facility] [facility] [address] 72549- 2714 Jan, [place] [facility] [address] 52727- 2158 Jan, Dizziness R42 [facility] [facility] [id number] [place] [address] 39929- 4333 Jan, Bipolar affective disorder, currently depressed, mild F31.31 ; Panic disorder with agoraphobia F40.01 and Chronic post-traumatic stress disorder (PTSD) F43.12 [facility] [id number] [place] [address] 60803- 0800 Jan, Dizziness R42 [facility] [id number] [place] [address] 93822- 9762 Jan, Chest pain, unspecified type R07.9 ; Exertional dyspnea R06.09 ; Hypertension, unspecified type I10 and Hyperlipidemia, unspecified hyperlipidemia type E78.5 [facility] [facility] [address] 23656- 0752 Jan, [place] [address] 44683- 7243 Jan, Lumbago M54.5 [facility] [facility] [address] 94300- 2419 Jan, El's esophageal ulceration K22.10 ; Blister (nonthermal ) of oral cavity, initial encounter S00.522A ; Local infection of the skin and subcutaneous tissue, unspecified L08.9 ; Type 2 diabetes mellitus with hyperglycemia E11.65 ; 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 and Stress incontinence N39.3 [facility] [id number] [place] [address] 03574- 1758 27 Dec, 2017 [facility] [id number] [place] [address] 60482- 7053 27 Dec, 2017 [facility] [id number] [place] [address] 98342- 3441 19 Dec, 2017 [facility] [id number] [place] [address] [id number] 16 Dec, 2017 Dental examination Z01.20 [facility] [address] 06507- 4104 15 Dec, 2017 Acute pain of right knee M25.561 [facility] [id number] [place] [address] 36702- 3863 14 Dec, 2017 [facility] [id number] [place] [address] 17633- 3706 14 Dec, 2017 [place] [place] [id number] [place] [address] 83392- 7247 14 Dec, 2017 Lumbago M54.5 ; Acute pain of right knee M25.561 and Seasonal allergic rhinitis due to other allergic trigger J30.89 [facility] [id number] [place] [address] 51509- 4272 12 Dec, 2017 Type 2 diabetes mellitus with hyperglycemia E11.65 [facility] [address] 97299- 7172 08 Dec, 2017 [facility] [id number] [place] [address] 53325- 7556 Dec, [facility] [address] [place] [address]- 4662 Dec, [facility] [id number] [place] [address] 79494- 4216 Dec, [facility] [id number] [place] [address] 19839- 2565 Dec, Chronic post-traumatic stress disorder (PTSD) F43.12 and Panic disorder with agoraphobia F40.01 [facility] [id number] [place] [address] 90829- 7750 13 Dec, 2017 Low back pain M54.5 [facility] [id number] [place] [address] 34773- 4080 Dec, Type 2 diabetes mellitus with hyperglycemia E11.65 ; 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 ; Low back pain M54.5 ; Other chronic pain G89.29 and Encounter for therapeutic drug level monitoring Z51.81 [facility] [id number] [place] [address] 81773- 3798 09 Dec, 2017 Coughing R05 [facility] [id number] [place] [address] 55549- 4871 Dec, [facility] [id number] [place] [address] [id number] 07 Dec, 2017 Dental examination Z01.20 [facility] [id number] [place] [address] 61594- 4418 Nov, Type 2 diabetes mellitus without complications E11.9 and Encounter for therapeutic drug level monitoring Z51.81 [facility] [id number] [place] [address] 65844- 7442 Nov, [facility] [id number] [place] [address] 64066- 6054 Oct, Type 2 diabetes mellitus without complications E11.9 [facility] [id number] [place] [address] 10548- 1591 Oct, Type 2 diabetes mellitus with hyperglycemia E11.65 [facility] [address], [place] [address]- 9971 Aug, Type 2 diabetes mellitus without complications E11.9 [facility] [id number] [place] [address] 81448- 5731 Aug, Type 2 diabetes mellitus without complications E11.9 ; Hypoglycemia E16.2 ; Lumbago M54.5 ; Stress incontinence of urine N39.3 and History of [place] (myocardial infarction) I25.2 [facility] [id number], [place] [address]- 7875 Jun, [facility] [id number] [place] [address] 98248- 8381 May, [facility] [id number] [place] [address] 00571- 9148 Apr, Panic disorder with agoraphobia F40.01 [facility] [id number] [place] [address] 21400- 5430 Apr, Panic disorder with agoraphobia F40.01 [facility] [id number] [place] [address] 05514- 2898 Apr, [facility] [id number] [place] [address] 04944- 2507 March, Other chronic pain G89.29 [facility] [id number], [place] [address]- 2377 March, [facility] [id number], [place] [address]- 8546 March, [facility] [id number], [place] [address]- 4153 March, [facility] [id number], [place] [address]- 8039 March, [facility] [id number], [place] [address]- 9229 March, Type 2 diabetes mellitus without complications E11.9 [facility] [facility] [id number], [place] [address]- 7868 March, Diarrhea, unspecified type R19.7 [facility] [facility] [id number] [place] [address] 31215- 9608 March, Bipolar 2 disorder F31.81 ; Chronic post-traumatic stress disorder (PTSD) F43.12 and Type 2 diabetes mellitus with hyperglycemia E11.65 [facility] [id number] [place] [address] 75995- 1644 March, [facility] [id number] [place] [address] 35005- 2415 March, [facility] [id number] [place] [address] 79537- 0767 March, Hypertension, benign I10 ; Type 2 diabetes mellitus with hyperglycemia E11.65 ; Hepatitis C B19.20 ; Gastritis and duodenitis K29.90 and Dysuria R30.0 [place] [id number] [place] [address] 32405- 2855 March, Hypertension, benign I10 ; Type 2 diabetes mellitus with hyperglycemia E11.65 ; Hepatitis C B19.20 ; Gastritis and duodenitis K29.90 and Dysuria R30.0 [place] [id number] [place] [address] 97074- 5659 March, Panic disorder with agoraphobia F40.01 ; Chronic post- traumatic stress disorder (PTSD) F43.12 ; Epilepsy G40.909 and Bipolar I disorder with mood-congruent psychotic features F31.9 [place] [id number] [place] [address] 91356- 4844 March, [place] [id number] [place] [address] 01126- 0736 March, Type 2 diabetes mellitus with hyperglycemia E11.65 [facility] [id number] [place] [address] 07563- 8938 Jan, Bipolar I disorder with duy F31.10 [facility] [id number] [place] [address] 21859- 7214 17 Jan, 2017 Bipolar 2 disorder F31.81 ; Chronic post-traumatic stress disorder (PTSD) F43.12 and Type 2 diabetes mellitus with hyperglycemia E11.65 [facility] [id number] [place] [address] 28638- 5011 17 Jan, 2017 [facility] [id number] [place] [address] 21545- 8513 Jan, [facility] [id number] [place] [address] 83469- 1970 14 Jan, 2017 Panic disorder with agoraphobia F40.01 [facility] [id number] [place] [address] 92947- 0928 13 Jan, 2017 Panic disorder with agoraphobia F40.01 ; Bipolar I disorder with mood-congruent psychotic features F31.9 ; Chronic post-traumatic stress disorder (PTSD) F43.12 and Epilepsy G40.909 [facility] [id number] [place] [address] 11742- 6981 Jan, [facility] [id number] [place] [address] 52999- 8903 Jan, [facility] [id number] [place] [address] 66279- 1788 Jan, Type 2 diabetes mellitus without complications E11.9 and Hypoglycemia E16.2 [facility] [id number] [place] [address] 88603- 9094 07 Jan, 2017 Type 2 diabetes mellitus without complications E11.9 ; Primary insomnia F51.01 and Hypertension, benign I10 [facility] [id number] [place] [address] 99471- 4395 06 Jan, 2017 [facility] [id number] [place] [address] [id number] 05 Jan, 2017 [facility] [id number] [place] [address] 71081- 8800 Dec, Type 2 diabetes mellitus with hyperglycemia E11.65 [facility] [id number] [place] [address] 93002- 4779 Dec, [facility] [id number] [place] [address] 93734- 8554 Dec, Bipolar 2 disorder F31.81 ; Panic disorder with agoraphobia F40.01 ; Chronic post-traumatic stress disorder (PTSD) F43.12 and Epilepsy G40.909 [facility] [id number] [place] [address] 36027- 5889 Dec, [facility] [id number] [place] [address] 07004- 1868 Dec, [place] [id number] [place] [address] 74801- 2575 Dec, Bipolar 2 disorder F31.81 ; Panic disorder with agoraphobia F40.01 ; Chronic post-traumatic stress disorder (PTSD) F43.12 and Epilepsy G40.909 [place] [id number] [place] [address] 48354- 5168 Dec, [facility] [id number] [place] [address] 26408- 3313 Dec, [facility] [id number] [place] [address] 72664- 8800 Dec, [facility] [address] [id number] [place] [address] 64470- 8342 Dec, Type 2 diabetes mellitus with hyperglycemia E11.65 ; 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 and Lumbago M54.5 [facility] [id number] [place] [address] 19593- 0386 Dec, [facility] [address] [id number] [place] [address] 18759- 8902 Dec, [facility] [address] [place] [address] 24[address] Dec, [facility] [id number] [place] [address] 18642 -5031 Dec, Pain of left leg M79.605 and Pain in right leg M79.604 [facility] [address] [id number] [place] [address] 97666- 5593 Dec, [place] [address] 71409- 4473 Dec, Type 2 diabetes mellitus with hyperglycemia E11.65 [place] [address] 46115- 5902 Dec, [place] [address] [id number] [place] [address] 52075- 1864 Dec, Type 2 diabetes mellitus with hyperglycemia E11.65 ; 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 ; Vagina, candidiasis B37.3 and Other chronic pain G89.29 [place] [address] [place] [id number] [place] [address] 68781- 7642 Nov, Panic disorder with agoraphobia F40.01 [place] [address] [place] [id number] [place] [address] 66096- 6329 Nov, [place] [address] [place] [id number] [place] [address] 11420- 3661 Nov, [facility] [id number] [place] [address] 29047- 3948 Nov, Hypoglycemia E16.2 [facility] [id number] [place] [address] 12471- 0815 Nov, [facility] [id number] [place] [address] 61211- 6961 Nov, [facility] [id number] [place] [address] 88584- 2261 Nov, [place] [id number] [address] 1235 Nov, Type 2 diabetes mellitus with hyperglycemia E11.65 and 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 [facility] [id number] [place] [address] 06857- 5871 Nov, Panic disorder with agoraphobia F40.01 ; Bipolar 2 disorder F31.81 ; Chronic post-traumatic stress disorder (PTSD) F43.12 and Epilepsy G40.909 [facility] [id number] [place] [address] 99381- 4129 Nov, Panic disorder with agoraphobia F40.01 [facility] [id number] [place] [address] 98250- 7568 Oct, [facility] [id number] [place] [address] 12657- 8909 Oct, [place] [id number] [place] [address] 40917- 3367 Oct, Bipolar 2 disorder F31.81 ; Panic disorder with agoraphobia F40.01 and Mood disorder F39 [facility] [id number] [place] [address] 23253- 8683 Oct, Diabetes E11.9 ; Type 2 diabetes mellitus with hyperglycemia E11.65 and 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 [place] [id number] [place] [address] 24496- 2097 Oct, [facility] [id number] [place] [address] 02844- 3624 Sep, [place] [id number] [place] [address] 85351- 8668 Sep, Bipolar 2 disorder F31.81 and Mood disorder F39 [facility] [id number] [place] [address] 53937- 9104 Sep, [place] [id number] [place] [address] 10910- 9791 Sep, Uncontrolled type 2 diabetes mellitus without complication, without long-term current use of insulin E11.65 [facility] [id number] [place] [address] 26965- 5916 Sep, [facility] [id number] [place] [address] 84429- 2524 Sep, [facility] [id number] [place] [address] 47638- 1008 Sep, [facility] [id number] [place] [address] 03200- 2147 Sep, [facility] [id number] [place] [address] 72534- 3508 Sep, Bipolar 2 disorder F31.81 ; Chronic post-traumatic stress disorder (PTSD) F43.12 ; Panic disorder with agoraphobia F40.01 and Epilepsy G40.909 [facility] [id number] [place] [address] 74572- 9916 Sep, Bipolar 2 disorder F31.81 ; PTSD (post-traumatic stress disorder) F43.10 and Panic disorder with agoraphobia F40.01 [facility] [id number] [place] [address] 83994- 2640 07 Sep, 2016 [facility] [id number] [place] [address] 64030- 1023 28 Aug, 2016 History of seizures Z87.898 ; Panic disorder with agoraphobia F40.01 and Bipolar 2 disorder F31.81 [facility] [id number] [place] [address] 39368- 5209 Aug, [facility] [id number] [place] [address] 05807- 3560 17 Aug, 2016 [facility] [id number] [place] [address] 24118- 8109 11 Aug, 2016 [facility] [id number] [place] [address] 10942- 0338 Aug, [facility] [id number] [place] [address] 83881- 6292 Aug, [facility] [address] 60759- 1999 Aug, [facility] [address] 47345- 2075 Aug, Hypoglycemia E16.2 and Bilateral impacted cerumen H61.23 [facility] [id number] [place] [address] 96466- 3943 Aug, [facility] [address] 45575- 1011 Jul, [facility] [id number] [place] [address] 17097- 3637 Jul, [facility] [address] 65177- 9549 15 Jul, 2016 Bipolar 2 disorder F31.81 ; Panic disorder with agoraphobia F40.01 ; PTSD (post-traumatic stress disorder) F43.10 and Epilepsy G40.909 [facility] [id number] [place] [address] 65066- 3180 Jul, [facility] [id number] [place] [address] 26358- 9594 Jul, Type 2 diabetes mellitus without complications E11.9 and Coughing R05 [facility] [id number] [place] [address] 27785- 6114 Jul, [facility] [id number] [place] [address] 04800- 7055 Jun, [facility] [id number] [place] [address] 41059- 8131 Jun, Bipolar 2 disorder F31.81 ; PTSD (post-traumatic stress disorder) F43.10 and Panic disorder with agoraphobia F40.01 [facility] [address] [address]- 7482 Jun, [place] [id number] [place] [address] 98211- 3570 Jun, [facility] [id number] [place] [address] 81937- 6570 Jun, [place] [id number] [place] [address] 41089- 0376 Jun, Type 2 diabetes mellitus without complications E11.9 and COPD (chronic obstructive pulmonary disease) J44.9 [facility] [id number] [place] [address] [id number] May, Dental examination Z01.20 and Dental caries K02.9 [place] [id number] [place] [address] 95451- 1588 May, Bipolar 2 disorder F31.81 ; PTSD (post-traumatic stress disorder) F43.10 and Panic disorder with agoraphobia F40.01 [place] [address], [place] [address]- 5492 May, Lumbago with sciatica, right side M54.41 ; Other chronic pain G89.29 and Uncontrolled type 2 diabetes mellitus without complication, without long-term current use of insulin E11.65 [facility] [address] [address] 0008 May, Chronic bronchitis, unspecified chronic bronchitis type J42 [facility] [address] [address]- 8841 May, [facility] [id number] [place] [address] 53446- 8029 May, [place] [id number] [place] [address] 35061- 9318 May, Chest pain, unspecified type R07.9 ; Tobacco use Z72.0 ; Type 2 diabetes mellitus without complications E11.9 ; Essential hypertension I10 ; Hyperlipidemia, unspecified hyperlipidemia type E78.5 ; Obesity (BMI 30- 39.9) E66.9 ; History of hypothyroidism Z86.39 ; Chronic obstructive pulmonary disease, unspecified COPD type J44.9 ; Anxiety F41.9 ; Bilateral claudication of lower limb I73.9 and Bipolar 2 disorder F31.81 [facility] [id number] [place] [address] 92618- 2169 05 May, 2016 Bipolar 2 disorder F31.81 ; Panic disorder with agoraphobia F40.01 and Tobacco abuse Z72.0 [facility] [id number] [place] [address] 62421- 6598 Apr, [place] [address] 36455- 8427 Apr, [place] [id number] [place] [address] 18295- 6519 Apr, [facility] [id number] [place] [address] 39731- 6807 Apr, Bipolar 2 disorder F31.81 ; Panic disorder with agoraphobia F40.01 and PTSD (post-traumatic stress disorder) F43.10 [facility] [id number] [place] [address] 54378- 3591 Apr, Chronic bronchitis, unspecified chronic bronchitis type J42 ; Cervical neuritis M54.12 and Thoracic neuritis M54.14 [facility] [id number] [place] [address] 38335- 7779 Apr, [facility] [id number] [place] [address] 40796- 8433 Apr, Cervicalgia M54.2 [facility] [id number] [place] [address] 12201- 9690 Apr, Bipolar 2 disorder F31.81 ; Panic disorder with agoraphobia F40.01 and PTSD (post-traumatic stress disorder) F43.10 [facility] [id number] [place] [address] 09608 -4741 Apr, [facility] [id number] [place] [address] 47577 -5803 Apr, Cough R05 and Tobacco dependence F17.200 [facility] [id number] [place] [address] 11899- 4168 Apr, [facility] [id number] [place] [address] 46000- 4500 Apr, [facility] [id number] [place] [address] 18059- 0764 March, Bipolar 2 disorder F31.81 ; Panic disorder with agoraphobia F40.01 and Generalized anxiety disorder F41.1 [facility] [id number] [place] [address] 51268- 2364 March, Closed displaced fracture of fifth metatarsal bone of right foot with routine healing, subsequent encounter S92.351D [facility] [id number] [place] [address] 78974- 0403 March, Bronchitis J40 [facility] [id number] [place] [address] 52141- 6318 March, [facility] [id number] [place] [address] 76481- 7133 March, [facility] [id number] [place] [address] 01444- 1667 March, Foot pain, right M79.671 ; Cervicalgia M54.2 and 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 mellitus without complication, unspecified retirement insulin use status E11.9 [facility] [id number] [place] [address] 69761- 3928 March, Fracture of fifth metatarsal bone of right foot S92.351A [facility] [id number] [place] [address] 05753- 0446 March, [facility] [id number] [place] [address] 41625- 0481 Jan, Fracture of fifth metatarsal bone of right foot S92.351A [facility] [id number] [place] [address] 89309- 4044 Jan, Bipolar 2 disorder F31.81 ; PTSD (post-traumatic stress disorder) F43.10 ; Panic disorder with agoraphobia F40.01 and Epilepsy G40.909 [facility] [id number] [place] [address] 87243- 4787 Jan, History of IL (myocardial infarction) I25.2 and History of high cholesterol Z86.39 [facility] [id number] [place] [address] 32055- 8946 Jan, Bipolar 2 disorder F31.81 ; Panic disorder with agoraphobia F40.01 ; Tobacco abuse Z72.0 and PTSD (post-traumatic stress disorder) F43.10 [facility] [id number] [place] [address] 48350- 3630 Jan, Fracture of fifth metatarsal bone of right foot S92.351A [place] [id number] [place] [address] 53558- 7621 Jan, [facility] [id number] [place] [address] 19665- 9024 Jan, History of high cholesterol Z86.39 [facility] [id number] [place] [address] 62669- 5682 Jan, History of [place] (myocardial infarction) I25.2 [facility] [id number] [place] [address] 45327- 3724 Jan, [facility] [id number] [place] [address] 17013- 3059 Dec, Back pain M54.9 ; Diabetes E11.9 ; Right knee pain M25.561 and Chest pain R07.9 [facility] [id number] [place] [address] 74303- 9250 Dec, [facility] [id number] [place] [address] 02516- 6059 Dec, [place] [address] 19507- 6317 Dec, Cervicalgia M54.2 [facility] [id number] [place] [address] 74571- 7871 Dec, Bipolar 2 disorder F31.81 ; PTSD (post-traumatic stress disorder) F43.10 ; Panic disorder with agoraphobia F40.01 and Epilepsy G40.909 [facility] [id number] [place] [address] 79006- 8772 Dec, Bipolar 2 disorder F31.81 ; PTSD (post-traumatic stress disorder) F43.10 and Panic disorder with agoraphobia F40.01 [facility] [id number] [place] [address] 82607- 3732 Dec, Diabetes E11.9 [place] [address] 42946- 4037 Dec, [place] [address] 56196- 8840 Dec, Other chronic pain G89.29 ; Hepatitis C B19.20 and History of seizures Z87.898 [facility] [id number] [place] [address] 10689- 7638 Dec, [facility] [id number] [place] [address] 81728- 2260 Dec, Bipolar 2 disorder F31.81 and Other chronic pain G89.29 [facility] [id number] [place] [address] 71954- 2623 Dec, Cervicalgia M54.2 and Diabetes E11.9 [facility] [id number] [place] [address] 28534- 2827 Dec, [place] [address] 46161- 0196 18 Dec, 2015 [facility] [id number] [place] [address] 61085- 6723 Dec, [facility] [id number] [place] [address] 78066- 3158 Dec, [facility] [id number] [place] [address] 04054- 8885 Dec, Type 2 diabetes mellitus without complications E11.9 [facility] [address] 52751- 6133 10 Dec, 2015 [place] [address] 14552- 0909 Dec, History of seizures Z87.898 and Hepatitis C B19.20 [facility] [address] 83330- 0105 Dec, Hepatitis C B19.20 [facility] [id number] [place] [address] 49516- 7666 Dec, [place] [id number] [place] [address] 58723- 4873 Dec, Cervicalgia M54.2 ; COPD (chronic obstructive pulmonary disease) J44.9 and Hepatitis C B19.20 [facility] [id number] [place] [address] 53445- 8737 Dec, Bipolar 2 disorder F31.81 ; History of hypertension Z86.79 ; History of anxiety Z86.59 ; Panic disorder with agoraphobia F40.01 and Epilepsy G40.909 [facility] [id number] [place] [address] 02214- 0081 Nov, [facility] [id number] [place] [address] 78947- 1408 Nov, [facility] [id number] [place] [address] 93803- 8743 Nov, History of seizures Z87.898 ; OAB (overactive bladder) N32.81 ; Lumbago M54.5 ; Other chronic pain G89.29 ; Cervicalgia M54.2 ; Tobacco abuse Z72.0 ; Tobacco abuse counseling Z71.6 and Impaired fasting glucose R73.01 [facility] [id number] [place] [address] 58121- 5612 14 Nov, 2015 Bipolar 2 disorder F31.81 ; PTSD (post-traumatic stress disorder) F43.10 ; History of anxiety Z86.59 ; History of COPD Z87.09 ; Panic disorder with agoraphobia F40.01 and Moderate depressed bipolar I disorder F31.[address] 28709- 2072 Nov, PTSD (post-traumatic stress disorder) F43.10 [facility] [id number] [place] [address] [id number] Nov, Dental examination Z01.20 and Dental caries K02.9 [place] [id number] [place] [address] 43036- 5236 08 Nov, 2015 History of hypertension Z86.79 ; History of hypothyroidism Z86.39 ; History of high cholesterol Z86.39 ; History of COPD Z87.09 and Overactive bladder N32.81 [facility] [id number] [place] [address] 57247- 1037 Nov, Bipolar 2 disorder F31.81 and PTSD (post-traumatic stress disorder) F43.10 [facility] [place] [id number] [place] [address] 15853- 9538 Nov, PTSD (post-traumatic stress disorder) F43.10 ; Panic disorder with agoraphobia F40.01 ; Epilepsy G40.909 and Moderate depressed bipolar I disorder F31.32 [facility] [id number] [place] [address] 79986- 9537 Nov, [address] 55131- 2062 Nov, [address] [place] [address] 44458- 9982 Oct, [place] [id number] [place] [address] 32261- 5568 Oct, Generalized anxiety disorder F41.1 ; Major depression, recurrent F33.9 and PTSD (post-traumatic stress disorder) F43.10 [place] [id number] [place] [address] 07741- 4202 Oct, Elevated fasting glucose R73.[address] 36269- 2535 Oct, Elevated fasting glucose R73.01 [place] [id number] [place] [address] 31728- 1000 Oct, History of COPD Z87.09 [place] [id number] [place] [address] 09069- 1429 Oct, General medical exam Z00.00 ; History of hypertension Z86.79 ; History of hypothyroidism Z86.39 ; History of hepatitis Z86.19 ; History of high cholesterol Z86.39 and History of seizures Z87.898 [place] [id number] [place] [address] 91685- 6928 Oct, General medical exam Z00.00 ; History of hypertension Z86.79 ; History of hypothyroidism Z86.39 ; Bipolar 2 disorder F31.81 ; PTSD ( post-traumatic stress disorder) F43.10 ; History of hepatitis Z86.19 ; History of high cholesterol Z86.39 ; History of anxiety Z86.59 ; History of seizures Z87.898 ; History of [place] (myocardial infarction) I25.2 and History of COPD Z87.09 [place] [id number] [place] [address] 56509- 8477 Oct, Generalized anxiety disorder F41.1 ; Depression F32.9 and PTSD (post-traumatic stress disorder) F43.10 [place] [id number] [place] [address] [place] [address]- 2546 Jan, [facility] [id number] [address]- 2546 Jan, [facility] [id number] [address]- 2546 Jun, [facility] [address] [place] [id number] Jun, [facility] [address] [place] [address]- 2546 May, [facility] [id number] [address]- 2546 May, [facility] [address] [place] [id number] May, [facility] [id number] [address]- 2546 May, [facility] [address] [place] [id number] May, [facility] [address] [facility] [id number] [address]- 2546 May, IMMUNIZATIONS No Known Immunizations SOCIAL HISTORY Never Assessed REASON FOR VISIT f/u- AB/EDGARDO PLAN OF CARE Activity Details Follow Up 4 Months Reason: VITAL SIGNS Height 62 in 2018-07-15 Weight 164.4 lbs 2018-07-15 Heart Rate 111 bpm 2018-07-15 Respiratory Rate 20 2018-07-15 BMI 30.07 kg/m2 2018-07-15 Blood pressure systolic 118 mmHg 2018-07-15 Blood pressure diastolic 60 mmHg 2018-07-15 MEDICATIONS Medication Instructions Dosage Frequency Start Date End Date Duration Status Blood Glucose Monitor 1 glucometer test blood sugar Apr, Active Minipress 1 MG Orally Once a day for nightmares 2 capsule at bedtime Active Albuterol Sulfate 1.25 MG/3ML USE ONE (1) VIAL PER NEBULIZER FOUR (4) TIMES DAILY NEEDED 25 Active Xyzal 5 MG Orally Once a day 1 tablet in the evening 24h 30 Active Lisinopril-Hydrochlorothiazide 10-12.5 MG Orally Once a day 1 tablet 24h Jun, 30 day(s) Active Nebulizer 1 as directed Apr, Active Montelukast Sodium 10 mg Orally Once a day 1 tablet 24h Oct, 30 days Active Wellbutrin SR 150 MG Orally Twice a day 1 tablet 12h 30 days Active Insulin Syringe 31G X 5/16 subcutaneously 4 times a day Inject insulin 4 times daily as prescribed 6h Oct, Active Cali Contour Next Test - In Vitro 3 times a day as directed 8h March, Active Protonix 40 MG Orally Once a day 1 tablet 24h Jan, 30 day(s) Active Atenolol 50 mg Orally Once a day 1 tablet 24h 30 Active Xanax 2 MG Orally 3 times a day and can take 1/2 additional tablet for panic. Must last 28 days 1 tablet 28 days Active Zyprexa 2.5 MG Orally Once a day 1 tablet 24h Active Cromolyn Sodium 4 % Ophthalmic Four times a day 1 drop into affected eye 6h Apr, Active Aspirin 81 MG TAKE ONE TABLET BY MOUTH ONCE DAILY 30 Active Microlet Lancets - as directed 8h March, Active [place] 10-325 MG Orally 3 times a day 1 tablet as needed 8h Jun, 28 days Active Ditropan XL 10 mg Orally Once a day 1 tablet 24h 30 Active Lipitor 40 mg Orally Once a day 1 tablet 24h Active Cyclobenzaprine HCl 10 mg Orally Three times a day 1 tablet as needed 8h 30 Active Blood Glucose Monitor System w/Device DX- E11.9 Test fasting and 2 hours after meal test 3 times per day Dec, Active Amitriptyline HCl 50 mg Orally Once at bedtime for sleep 1 tablet March Active NovoLog Flexpen 100 UNIT/ML Subcutaneous 3 times a day 50-40-70 8h Jun, Active BD Pen Needle Stefanie U/F 32G X 4 MM DX- E11.9 5 times per day as directed Jun, Active Blood Glucose Test Strip And lancets. DX E11.9 Test fasting and 2 hours after meal test 3 times per day Dec, Active Levemir 100 UNIT/ML Flex Pen Subcutaneous 2 times a day 100 units in AM and 65 units in PM. 12h 14 Dec, 2017 Active Oxygen Active Levothyroxine Sodium 150 MCG Orally Once a day 1 tablet 24h 10 Oct, 2015 Active Ventolin HFA 108 (90 Base) MCG/ACT Inhalation every 6 hrs 2 puffs as needed 6h Active Symbicort 160-4.5 MCG/ACT Inhalation Twice a day- rinse mouth and spit after use 2 puffs every day Apr, Active RESULTS No Results PROCEDURES No Known procedures INSTRUCTIONS MEDICATIONS ADMINISTERED No Known Medications MEDICAL (GENERAL) HISTORY Type Description Date Medical History Hypothyroidism Medical History High cholesterol Medical History Hypertension Medical History Brain seizure Medical History Asthma Medical History COPD Medical History Hep C -2005 Medical History [place] x 2 last in 2009 Medical History PTSD (post-traumatic stress disorder) Medical History Colon Cancer 2016 Medical History diabites II Surgical History tonsillectomy 1985 Surgical History partial hysterectomy 2004 Surgical History appendectomy 2004 Hospitalization History Surgery(s) only Hospitalization History pneumonia x3 days Hospitalization History Heart cath with stint 05/15/2016 Hospitalization History Diverticulitis, N/V-[facility] 01/28/17
--- OUTSIDE RECORDS SUMMARY | 2019-01-26 07:11 | XMS REPORT ---
Author Author GERARDO [facility] Address [address] [place] [address] Care Team Providers Care Polymerization Helper Name Role Phone MARGIGERARDO Unavailable PROBLEMS Type Condition ICD9-CM Code LHE97-TU Code Onset Dates Condition Status SNOMED Code Problem Other chronic pain G89.29 Active 77247882 Problem OAB (overactive bladder) N32.81 Active 744563021 Problem Tobacco abuse Z72.0 Active 26913249 Problem Cervicalgia M54.2 Active 43089161 Problem Lumbago M54.5 Active 165238264 Problem Hepatitis C B19.20 Active 12969639 Problem COPD (chronic obstructive pulmonary disease) J44.9 Active 21644544 Problem Diabetes E11.9 Active 66978453 Problem Type 2 diabetes mellitus without complications E11.9 Active 663134778 Problem Stress incontinence of urine N39.3 Active 90981293 Problem Bilateral claudication of lower limb I73.9 Active 861119791 Problem Seasonal allergic rhinitis due to other allergic trigger J30.89 Active 878350894 Problem Hypoglycemia E16.2 Active 522242724 Problem Hypertension, unspecified type I10 Active 94649334 Problem Bipolar affective disorder, currently depressed, mild F31.31 Active 490056789 Problem Hyperlipidemia, unspecified hyperlipidemia type E78.5 Active 07337820 Problem Fallen bladder N81.10 Active 949862218 Problem Chronic tension-type headache, not intractable G44.229 Active 204259996 Problem case management specialist 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 Active 890377666 Problem Type 2 diabetes mellitus with hyperglycemia E11.65 Active 634199960 Problem Bipolar 2 disorder F31.81 Active 72710575 Problem Chronic post-traumatic stress disorder (PTSD) F43.12 Active 690793317 Problem History of hypothyroidism Z86.39 Active 216410504 Problem Stress incontinence N39.3 Active 35268978 Problem El's esophageal ulceration K22.10 Active 916756417 Problem 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 mellitus without complication, without long -term current use of insulin E11.9 Active 609295725 Problem Irritable bowel syndrome with diarrhea K58.0 Active 950372107 Problem Panic disorder with agoraphobia F40.01 Active 47354082 Problem Type 2 diabetes mellitus with hyperglycemia E11.65 Active 976271845 Problem Epilepsy G40.909 Active 88768377 Problem Hypertension, benign I10 Active 94933862 Problem History of DC (myocardial infarction) I25.2 Active 388999741 Problem Mood disorder F39 Active 29152823 Problem History of hypertension Z86.79 Active 763050507 Problem Uncontrolled type 2 diabetes mellitus without complication, without long-term current use of insulin E11.65 Active 200835713 Problem History of high cholesterol Z86.39 Active 713824289 Problem Bipolar I disorder with mood-congruent psychotic features F31.9 Active 078442978 Problem History of seizures Z87.898 Active 088945627 Problem Bipolar I disorder with duy F31.10 Active 90478809 Problem Primary insomnia F51.01 Active 6004957 Problem Gastritis and duodenitis K29.90 Active 482019183 ALLERGIES No Information ENCOUNTERS Encounter Location Date Diagnosis [place] [address] [address] 17 Nov, 2018 [place] [address] [address]- [address] 05 Aug, 2018 [place] [address] [place] [id number] [place] [address] 49846- 7636 Jul, [facility] [address] [address]- [address] Jul, Type 2 diabetes mellitus without complications E11.9 ; Fallen bladder N81.10 ; Stress incontinence of urine N39.3 ; Gall bladder disease K82.9 ; Periodontal abscess K05.219 ; Diarrhea, unspecified R19.7 ; Nausea with vomiting, unspecified R11.2 and Chronic tension-type headache, not intractable G44.229 [facility] [address] [address]- [address] Jul, [facility] [address] 87[address]- 5205 Jul, [facility] [address] [place] [address] 66655- 1439 Jul, [facility] [address] [place] [id number] [place] [address] 202740- 1478 Jul, Bipolar 2 disorder F31.81 ; Panic disorder with agoraphobia F40.01 and Chronic post-traumatic stress disorder (PTSD) F43.12 [facility] [address] [place] [id number] [place] [address] 48837- 1193 Jun, [facility] [address] [place] [id number] [place] [address] 94120- 0211 Jun, [facility] [address] [place] [id number] [place] [address] 96714- 6579 Jun, Lumbago M54.5 [place] [address] [place] [id number] [place] [address] 93590- 9177 Jun, Type 2 diabetes mellitus with hyperglycemia E11.65 [facility] [address] [place] [id number] [place] [address] 11769- 3920 Jun, [facility] [address] [place] [id number] [place] [address] 83384- 9369 Jun, Type 2 diabetes mellitus with hyperglycemia E11.65 ; El 's esophageal ulceration K22.10 and Lumbago M54.5 [facility] [address] [place] [address] 88471- 2470 Jun, Type 2 diabetes mellitus with hyperglycemia E11.65 [facility] [address] [place] [address] 47534- 1440 Jun, [facility] [address] [place] [id number] [place] [address] 34482- 4515 Jun, [facility] [address] [place] [address] 20233- 1738 Jun, Bipolar affective disorder, currently depressed, mild F31.31 ; Chronic post-traumatic stress disorder (PTSD) F43.12 and Panic disorder with agoraphobia F40.01 [facility] [address] [facility] [id number] [place] [address] 14 Jun, 2018 [facility] [address] [facility] [id number] [place] [address]- 6[address] Jun, [facility] [address] [facility] [id number] [place] [address]- 5329 Jun, Type 2 diabetes mellitus with hyperglycemia E11.65 [facility] [address] [facility] [id number] [place] [address]- 9905 Jun, Uncontrolled type 2 diabetes mellitus with hyperglycemia E11.65 [facility] [address] [facility] [id number] [place] [address]- 9437 Jun, [facility] [address] [id number] [address] 88[address] May, Lumbago M54.[address] [facility] [address] [facility] [id number] [place] [id number] May, [facility] [address] [facility] [id number] [place] [address]- 8607 May, [facility] [address] [facility] [id number] [place] [address]- 8645 May, [facility] [address] [place] [id number] [address]- 0212 May, [facility] [address] [facility] [id number] [place] [address]- 4896 May, [facility] [address] [facility] [id number] [place] [address]- 9288 May, [facility] [address] [facility] [id number] [place] [address]- 5370 May, [facility] [address] [facility] [id number] [place] [address]- 4064 May, Lumbago M54.5 [place] [address] [address] May, [place] [address] [place] [id number] [place] [address] 80957- [address], [address] of the chest R93.8 [place] [address] [place] [address] [place] [address] 90646- 4033 Apr, Bipolar 2 disorder F31.81 ; Chronic post-traumatic stress disorder (PTSD) F43.12 and Panic disorder with agoraphobia F40.01 [place] [address] [place] [address] [place] [address] 18618- [address] Apr, [address] of the chest R93.8 [place] [address] [place] [address] [place] [address] 90486- [address] Apr, [address] of the chest R93.8 [place] [address] [place] [address] [place] [address] 39086- 1338 Apr, [place] [address] [place] [address] [place] [address] 97816- 6413 Apr, Type 2 diabetes mellitus with hyperglycemia E11.65 [place] [address] [place] [address] [place] [address] 54362- 3603 Apr, 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 mellitus without complication, without long-term current use of insulin E11.9 ; Watery eyes H04.203 ; Low back pain M54.5 ; Other chronic pain G89.29 ; Chronic tension-type headache, not intractable G44.229 ; Uncontrolled type 2 diabetes mellitus without complication , without long-term current use of insulin E11.65 and Bronchitis J40 [place] [address] [place] [address] [place] [address] 37742- 0996 Apr, [place] [address] [place] [id number] [place] [address] 50016- 7503 Apr, Lumbago M54.5 [place] [address] [place] [id number] [place] [address] 55214- 4143 March, [facility] [address] [place] [id number] [place] [address] 97396 -7986 March, Cough R05 ; Pneumonia due to infectious organism, unspecified laterality, unspecified part of lung J18.9 and Non-intractable vomiting with nausea, unspecified vomiting type R11.2 [facility] [address] [place] [id number] [place] [address] 85474- 6901 March, Bronchitis J40 [place] [address] 77894- 0653 March, [place] [address] 85844- 2992 March, El's esophageal ulceration K22.10 and Type 2 diabetes mellitus with hyperglycemia E11.65 [place] [address] [place] [address] [place] [address] 65806- 0544 March, Panic disorder with agoraphobia F40.01 ; Chronic post- traumatic stress disorder (PTSD) F43.12 and Bipolar 2 disorder F31.81 [place] [address] [place] [address] [place] [address] 64104- 2123 March, Type 2 diabetes mellitus with hyperglycemia E11.65 [place] [address] [place] [address] [place] [address] 65581- 3400 March, [place] [address] [place] [id number] [place] [address] 69496- 4003 March, Lumbago M54.5 [place] [address] [place] [id number] [place] [address] 33431- 2959 March, [place] [address] [place] [address] [place] [address] 13846- 1227 March, Irritable bowel syndrome with diarrhea K58.0 ; Primary insomnia F51.01 ; Type 2 diabetes mellitus with hyperglycemia E11.65 and FPC 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 [place] [address] [place] [address] [place] [address] 10618- 7850 March, [facility] [address] [address]- 6522 Jan, [facility] [address] [place] [id number] [place] [address] 05657- 2537 Jan, [facility] [address] [place] [id number] [place] [address] 36844- 5918 Jan, [place] [address] [place] [id number] [place] [address] 83936- 8054 Jan, [place] [address] [place] [id number] [place] [address] 79966- 0078 Jan, Dizziness R42 [place] [address] [place] [id number] [place] [address] 10211- 6238 Jan, Bipolar affective disorder, currently depressed, mild F31.31 ; Panic disorder with agoraphobia F40.01 and Chronic post-traumatic stress disorder (PTSD) F43.12 [place] [address] [place] [address] [place] [address] 94913- 5157 Jan, Dizziness R42 [place] [address] [place] [address] [place] [address] 37540- 5857 Jan, Chest pain, unspecified type R07.9 ; Exertional dyspnea R06.09 ; Hypertension, unspecified type I10 and Hyperlipidemia, unspecified hyperlipidemia type E78.5 [place] [address] [place] [address] 05186- 9791 Jan, [place] [address] [place] [address] 20452- 0864 Jan, Lumbago M54.5 [place] [address] [place] [id number] [place] [address] 01609- 0362 Jan, El's esophageal ulceration K22.10 ; Blister (nonthermal ) of oral cavity, initial encounter S00.522A ; Local infection of the skin and subcutaneous tissue, unspecified L08.9 ; Type 2 diabetes mellitus with hyperglycemia E11.65 ; case management specialist 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 and Stress incontinence N39.3 [facility] [address] [place] [address] 57394- 2135 27 Dec, 2017 [facility] [address] [place] [id number] [place] [address] 60683- 8484 27 Dec, 2017 [facility] [address] [place] [id number] [place] [address] 11616- 2684 19 Dec, 2017 [facility] [address] [place] [id number] [place] [address] [id number] 16 Dec, 2017 Dental examination Z01.20 [facility] [address] 95762- 0758 15 Dec, 2017 Acute pain of right knee M25.561 [facility] [address] [place] [id number] [place] [address] 12830- 8908 14 Dec, 2017 [facility] [address] [place] [id number] [place] [address] 97127- 8661 14 Dec, 2017 [facility] [address] [place] [id number] [place] [address] 77572- 9907 14 Dec, 2017 Lumbago M54.5 ; Acute pain of right knee M25.561 and Seasonal allergic rhinitis due to other allergic trigger J30.89 [facility] [address] [place] [address] 95712- 8455 Dec, Type 2 diabetes mellitus with hyperglycemia E11.65 [facility] [address] [place] [id number] [place] [address] 36423- 2976 Dec, [facility] [address] [place] [id number] [place] [address] 90615- 6681 Dec, [facility] [address] [place] [id number] [place] [address] 23481- 5089 23 Dec, 2017 [facility] [address] [place] [id number] [place] [address] 41943- 1151 15 Dec, 2017 [facility] [address] [place] [address]- 6604 15 Dec, 2017 Chronic post-traumatic stress disorder (PTSD) F43.12 and Panic disorder with agoraphobia F40.01 [facility] [address] [place] [id number] [place] [address] 77081- 9196 13 Dec, 2017 Low back pain M54.5 [facility] [address] [place] [id number] [place] [address] 63939- 6953 12 Dec, 2017 Type 2 diabetes mellitus with hyperglycemia E11.65 ; FPC 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 ; Low back pain M54.5 ; Other chronic pain G89.29 and Encounter for therapeutic drug level monitoring Z51.81 [place] [address] [place] [address] [place] [address] 87529- 1614 09 Dec, 2017 Coughing R05 [place] [address] [place] [address] [place] [address] 97661- 0188 09 Dec, 2017 [facility] [address] [id number] Dec, 2017 Dental examination Z01.20 [place] [address] [place] [address] [place] [address] 93452- 3032 Nov, Type 2 diabetes mellitus without complications E11.9 and Encounter for therapeutic drug level monitoring Z51.81 [place] [address] [place] [address] [place] [address] 08612- 0218 Nov, [place] [address] [place] [address] [place] [address] 01852- 0423 Oct, Type 2 diabetes mellitus without complications E11.9 [place] [address] [place] [address] [place] [address] 47938- 8397 Oct, Type 2 diabetes mellitus with hyperglycemia E11.65 [facility] [address] [place] [address] [place] [address] 42907- 1392 Aug, Type 2 diabetes mellitus without complications E11.9 [facility] [address] [place] [address] [place] [address] 20140- 0813 Aug, Type 2 diabetes mellitus without complications E11.9 ; Hypoglycemia E16.2 ; Lumbago M54.5 ; Stress incontinence of urine N39.3 and History of DC (myocardial infarction) I25.2 [facility] [address] [place] [address] [place] [address] 74976- 7822 Jun, [facility] [address] [place] [address] [place] [address] 63758- 1456 May, [facility] [address] [place] [address] [place] [address] 81241- 0799 Apr, Panic disorder with agoraphobia F40.01 [facility] [address] [place] [address] [place] [address] 68374- 2408 Apr, Panic disorder with agoraphobia F40.01 [facility] [address] [place] [address] [place] [address] 56796- 4182 Apr, [facility] [address] [place] [address] [place] [address] 53107- 8683 March, Other chronic pain G89.29 [facility] [address] [place] [address] [place] [address] 20635- 2921 March, [facility] [address] [place] [address] [place] [address] 95041- 8176 March, [facility] [address] [place] [address] [place] [address] 65753- 6628 March, [facility] [address] [place] [address] [place] [address] 53299- 4763 March, [facility] [address] [place] [address] [place] [address] 48428- 6119 March, Type 2 diabetes mellitus without complications E11.9 [facility] [address] [place] [address] [place] [address] 94426- 5379 March, Diarrhea, unspecified type R19.7 [facility] [address] [place] [address]- 1822 March, Bipolar 2 disorder F31.81 ; Chronic post-traumatic stress disorder (PTSD) F43.12 and Type 2 diabetes mellitus with hyperglycemia E11.65 [place] [address] [place] [address] 35274- 0350 March, [place] [address] [place] [address] [place] [address] 18319- 9523 March, [place] [address] [place] [address] [place] [address] 79125- 7936 March, Hypertension, benign I10 ; Type 2 diabetes mellitus with hyperglycemia E11.65 ; Hepatitis C B19.20 ; Gastritis and duodenitis K29.90 and Dysuria R30.0 [place] [address] [place] [address] [place] [address] 12955- 5865 March, Hypertension, benign I10 ; Type 2 diabetes mellitus with hyperglycemia E11.65 ; Hepatitis C B19.20 ; Gastritis and duodenitis K29.90 and Dysuria R30.0 [place] [address] [place] [address] [place] [address] 51363- 8811 March, Panic disorder with agoraphobia F40.01 ; Chronic post- traumatic stress disorder (PTSD) F43.12 ; Epilepsy G40.909 and Bipolar I disorder with mood-congruent psychotic features F31.9 [place] [address] [address]- 9871 March, [place] [address] [place] [address] [place] [address] 18201- 9958 March, Type 2 diabetes mellitus with hyperglycemia E11.65 [place] [address] [place] [address] [place] [address] 75882- 0617 Jan, Bipolar I disorder with duy F31.10 [place] [address] [place] [address] 53290- 2747 Jan, Bipolar 2 disorder F31.81 ; Chronic post-traumatic stress disorder (PTSD) F43.12 and Type 2 diabetes mellitus with hyperglycemia E11.65 [facility] [address] [address]- 4016 17 Jan, 2017 [facility] [address] [place] [address] [place] [address] 95247- 5785 17 Jan, 2017 [facility] [address] [place] [address] [place] [address] 95322- 6042 14 Jan, 2017 Panic disorder with agoraphobia F40.01 [facility] [address] [place] [address] [place] [address] 72292- 2539 13 Jan, 2017 Panic disorder with agoraphobia F40.01 ; Bipolar I disorder with mood-congruent psychotic features F31.9 ; Chronic post-traumatic stress disorder (PTSD) F43.12 and Epilepsy G40.909 [facility] [address] [place] [address] [place] [address] 57247- 0596 Jan, [facility] [address] [place] [address] [place] [address] 17721- 4250 Jan, [facility] [address] [place] [address] [place] [address] 47196- 2142 10 Jan, 2017 Type 2 diabetes mellitus without complications E11.9 and Hypoglycemia E16.2 [facility] [address] [place] [address] [place] [address] 47444- 7659 07 Jan, 2017 Type 2 diabetes mellitus without complications E11.9 ; Primary insomnia F51.01 and Hypertension, benign I10 [facility] [address] [address]- 8126 06 Jan, 2017 [facility] [address] [place] [id number] [place] [address] [id number] Jan, [facility] [address] [place] [address] [place] [address] 43837- 2092 31 Dec, 2016 Type 2 diabetes mellitus with hyperglycemia E11.65 [facility] [address] [place] [address] 43786- 5479 27 Dec, 2016 [facility] [address] [address]- 7280 Dec, Bipolar 2 disorder F31.81 ; Panic disorder with agoraphobia F40.01 ; Chronic post-traumatic stress disorder (PTSD) F43.12 and Epilepsy G40.909 [facility] [address] [address]- 7247 Dec, [facility] [address] [place] [address] [place] [address] 96568- 7883 Dec, [place] [address] [place] [address] 90884- 6105 Dec, Bipolar 2 disorder F31.81 ; Panic disorder with agoraphobia F40.01 ; Chronic post-traumatic stress disorder (PTSD) F43.12 and Epilepsy G40.909 [place] [address] [place] [address] [place] [address] 01400- 7528 Dec, [facility] [address] [place] [address] [place] [address] 57951- 0785 Dec, [facility] [address] [place] [address] 84542- 8993 Dec, [facility] [address] [place] [address] [place] [address] 88439- 0599 Dec, Type 2 diabetes mellitus with hyperglycemia E11.65 ; case management specialist 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 and Lumbago M54.5 [place] [address] [place] [address] 40309- 9083 Dec, [facility] [address] [place] [address] 48379- 9800 Dec, [place] [address] [place] [address] [place] [address] 68233- 4559 Dec, [facility] [address] [address] -2342 Dec, Pain of left leg M79.605 and Pain in right leg M79.604 [place] [address] [place] [address] [place] [phone] 14 Dec, 2016 [place] [address] [address] 08 Dec, 2016 Type 2 diabetes mellitus with hyperglycemia E11.65 [place] [address] [address] Dec, [place] [address] [address] Dec, Type 2 diabetes mellitus with hyperglycemia E11.65 ; [facility] 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 ; Vagina, candidiasis B37.3 and Other chronic pain G89.29 [place] [address] [address] Nov, Panic disorder with agoraphobia F40.01 [place] [address] [address] Nov, [place] [address] [place] [id number] [place] [phone] Nov, [place] [address] [address] Nov, Hypoglycemia E16.2 [facility] [id number] [place] [address] 33527- 2771 Nov, [facility] [id number] [place] [address] 00710- 4161 Nov, [facility] [id number] [place] [address] 40869- 4715 Nov, [facility] [id number] [place] [address] 91646- 1800 Nov, Type 2 diabetes mellitus with hyperglycemia E11.65 and case management specialist 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 [facility] [address] 85578- 6592 Nov, Panic disorder with agoraphobia F40.01 ; Bipolar 2 disorder F31.81 ; Chronic post-traumatic stress disorder (PTSD) F43.12 and Epilepsy G40.909 [facility] [address] [place] [address] 01268- 3800 Nov, Panic disorder with agoraphobia F40.01 [facility] [id number] [place] [address] 12426- 7416 Oct, [facility] [id number] [place] [address] 98077- 2406 Oct, [facility] [id number] [place] [address] 12395- 5205 Oct, Bipolar 2 disorder F31.81 ; Panic disorder with agoraphobia F40.01 and Mood disorder F39 [facility] [id number] [place] [address] 23776- 5208 Oct, Diabetes E11.9 ; Type 2 diabetes mellitus with hyperglycemia E11.65 and case management specialist 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 [facility] [id number] [place] [address] 39367- 0435 Oct, [facility] [id number] [place] [address] 23562- 6261 Sep, [facility] [address] [place] [address] 93822- 3974 Sep, Bipolar 2 disorder F31.81 and Mood disorder F39 [facility] [address] [place] [address] 62482- 2979 Sep, [facility] [id number] [place] [address] 35411- 9767 Sep, Uncontrolled type 2 diabetes mellitus without complication, without long-term current use of insulin E11.65 [facility] [id number] [place] [address] 10725- 7826 Sep, [facility] [address] [address] 2592 18 Sep, 2016 [facility] [id number] [place] [address] 95831- 8730 Sep, [facility] [id number] [place] [address] 14204- 3517 Sep, [facility] [id number] [place] [address] 56669- 3940 Sep, Bipolar 2 disorder F31.81 ; Chronic post-traumatic stress disorder (PTSD) F43.12 ; Panic disorder with agoraphobia F40.01 and Epilepsy G40.909 [facility] [id number] [place] [address] 09098- 6009 Sep, Bipolar 2 disorder F31.81 ; PTSD (post-traumatic stress disorder) F43.10 and Panic disorder with agoraphobia F40.01 [facility] [id number] [place] [address] 56942- 2253 Sep, [facility] [id number] [place] [address] 41715- 7890 Aug, History of seizures Z87.898 ; Panic disorder with agoraphobia F40.01 and Bipolar 2 disorder F31.81 [facility] [address] [address] Aug, [facility] [address] [address]- 7891 17 Aug, 2016 [facility] [address] [place] [address] 54302- 8349 Aug, [facility] [id number] [place] [address] 31010- 4802 Aug, [facility] [address] [address]- 6588 Aug, [facility] [id number] [place] [address] 85562- 3534 Aug, [facility] [id number] [place] [address] 83419- 5943 Aug, Hypoglycemia E16.2 and Bilateral impacted cerumen H61.23 [facility] [id number] [place] [address] 54424- 6629 Aug, [facility] [address] 50064- 6522 Jul, [facility] [address] 08019- 6379 Jul, [facility] [address] 92156- 6405 Jul, Bipolar 2 disorder F31.81 ; Panic disorder with agoraphobia F40.01 ; PTSD (post-traumatic stress disorder) F43.10 and Epilepsy G40.909 [facility] [address] 30770- 4185 Jul, [facility] [id number] [place] [address] 61922- 5525 Jul, Type 2 diabetes mellitus without complications E11.9 and Coughing R05 [facility] [id number] [place] [address] 28361- 9921 Jul, [facility] [id number] [place] [address] 11237- 7471 Jun, [facility] [id number] [place] [address] 02856- 7909 Jun, Bipolar 2 disorder F31.81 ; PTSD (post-traumatic stress disorder) F43.10 and Panic disorder with agoraphobia F40.01 [facility] [id number] [place] [address] 65540- 1677 Jun, [facility] [id number] [place] [address] 74520- 6667 Jun, [facility] [address] [place] [address] 75304- 7512 Jun, [facility] [address] 39385- 1115 Jun, Type 2 diabetes mellitus without complications E11.9 and COPD (chronic obstructive pulmonary disease) J44.9 [facility] [address] [place] [address] [id number] May, Dental examination Z01.20 and Dental caries K02.9 [facility] [address] 70620- 9683 May, Bipolar 2 disorder F31.81 ; PTSD (post-traumatic stress disorder) F43.10 and Panic disorder with agoraphobia F40.01 [facility] [address] [place] [address] 82610- 9289 May, Lumbago with sciatica, right side M54.41 ; Other chronic pain G89.29 and Uncontrolled type 2 diabetes mellitus without complication, without long-term current use of insulin E11.65 [facility] [address] [place] [address] 77953- 6228 May, Chronic bronchitis, unspecified chronic bronchitis type J42 [facility] [address] [place] [address] 27816- 7168 May, [facility] [address] [place] [address] 56430- 1547 May, [facility] [address] [place] [address] 20785- 1737 May, Chest pain, unspecified type R07.9 ; Tobacco use Z72.0 ; Type 2 diabetes mellitus without complications E11.9 ; Essential hypertension I10 ; Hyperlipidemia, unspecified hyperlipidemia type E78.5 ; Obesity (BMI 30- 39.9) E66.9 ; History of hypothyroidism Z86.39 ; Chronic obstructive pulmonary disease, unspecified COPD type J44.9 ; Anxiety F41.9 ; Bilateral claudication of lower limb I73.9 and Bipolar 2 disorder F31.81 [facility] [address] [place] [address] 70659- 3052 05 May, 2016 Bipolar 2 disorder F31.81 ; Panic disorder with agoraphobia F40.01 and Tobacco abuse Z72.0 [facility] [address] [place] [address] 94738- 2772 30 Apr, 2016 [facility] [address] 97140- 6075 Apr, [facility] [address] [place] [address] 60654- 5346 Apr, [facility] [address] 65105- 0337 Apr, Bipolar 2 disorder F31.81 ; Panic disorder with agoraphobia F40.01 and PTSD (post-traumatic stress disorder) F43.10 [facility] [address] [place] [address] 86338- 9398 Apr, Chronic bronchitis, unspecified chronic bronchitis type J42 ; Cervical neuritis M54.12 and Thoracic neuritis M54.14 [facility] [id number] [place] [address] 68348- 3846 Apr, [facility] [address] [place] [address] 36656- 7412 Apr, Cervicalgia M54.2 [facility] [place] [id number] [place] [address] 63723- 8507 14 Apr, 2016 Bipolar 2 disorder F31.81 ; Panic disorder with agoraphobia F40.01 and PTSD (post-traumatic stress disorder) F43.10 [facility] [address] [place] [address] [place] [address] 33173 -6636 13 Apr, 2016 [facility] [address] [place] [address] [place] [address] 91975 -2455 09 Apr, 2016 Cough R05 and Tobacco dependence F17.[address] [place] [address]- 3365 Apr, [facility] [address] [place] [address] 85660- 5706 Apr, [facility] [address] [place] [address] 72646- 1544 March, Bipolar 2 disorder F31.81 ; Panic disorder with agoraphobia F40.01 and Generalized anxiety disorder F41.1 [facility] [address] [place] [address] 21247- 2698 March, Closed displaced fracture of fifth metatarsal bone of right foot with routine healing, subsequent encounter S92.351D [facility] [address] [place] [address] 65432- 9077 March, Bronchitis J40 [facility] [address] 71883- 8436 March, [facility] [address] [place] [address] 38569- 3241 March, [facility] [address] [place] [address] 77182- 2664 March, Foot pain, right M79.671 ; Cervicalgia M54.2 and 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 mellitus without complication, unspecified sticker on insulin use status E11.9 [facility] [address] [place] [address] 19176- 2916 March, Fracture of fifth metatarsal bone of right foot S92.351A [facility] [address] [place] [address] 29043- 7869 March, [facility] [address] [place] [address] 09270- 9019 Jan, Fracture of fifth metatarsal bone of right foot S92.351A [facility] [address] [place] [address] 68247- 7143 Jan, Bipolar 2 disorder F31.81 ; PTSD (post-traumatic stress disorder) F43.10 ; Panic disorder with agoraphobia F40.01 and Epilepsy G40.909 [facility] [address] [place] [address] 61668- 9946 Jan, History of DC (myocardial infarction) I25.2 and History of high cholesterol Z86.39 [facility] [address] 70451- 0913 Jan, Bipolar 2 disorder F31.81 ; Panic disorder with agoraphobia F40.01 ; Tobacco abuse Z72.0 and PTSD (post-traumatic stress disorder) F43.10 [facility] [address] 26855- 4768 Jan, Fracture of fifth metatarsal bone of right foot S92.351A [facility] [address] 63061- 7412 Jan, [facility] [address] 57865- 9789 Jan, History of high cholesterol Z86.39 [facility] [address] 12409- 2001 Jan, History of DC (myocardial infarction) I25.2 [facility] [address] [place] [address] 20051- 7540 Jan, [facility] [address] 08270- 3819 Dec, Back pain M54.9 ; Diabetes E11.9 ; Right knee pain M25.561 and Chest pain R07.9 [facility] [address] 92446- 2556 Dec, [facility] [address] 23832- 0554 Dec, [facility] [address] 65718- 9834 Dec, Cervicalgia M54.2 [facility] [address] [place] [address] 71025- 6437 Dec, Bipolar 2 disorder F31.81 ; PTSD (post-traumatic stress disorder) F43.10 ; Panic disorder with agoraphobia F40.01 and Epilepsy G40.909 [facility] [address] [place] [address] 82836- 7013 08 Jan, 2016 Bipolar 2 disorder F31.81 ; PTSD (post-traumatic stress disorder) F43.10 and Panic disorder with agoraphobia F40.01 [facility] [address] 24875- 4780 Dec, Diabetes E11.9 [facility] [address] 77474- 4815 Dec, [facility] [address] 51355- 5509 Dec, Other chronic pain G89.29 ; Hepatitis C B19.20 and History of seizures Z87.898 [facility] [address] [place] [address] 39909- 8719 Dec, [facility] [address] 55583- 2800 Dec, Bipolar 2 disorder F31.81 and Other chronic pain G89.29 [facility] [address] 04084- 5265 Dec, Cervicalgia M54.2 and Diabetes E11.9 [facility] [address] [place] [address] 29596- 0307 Dec, [facility] [address] 87332- 6380 Dec, [facility] [address] 53299- 2655 Dec, [facility] [address] [place] [address] 344202- 2546 16 Dec, 2015 [facility] [address] [place] [address] 73104- 5553 Dec, Type 2 diabetes mellitus without complications E11.9 [facility] [address] [place] [address] 80041- 2358 10 Dec, 2015 [facility] [address] [place] [address] 50662- 1016 Dec, History of seizures Z87.898 and Hepatitis C B19.20 [facility] [address] [place] [address] 54453- 1473 Dec, Hepatitis C B19.20 [facility] [address] [place] [address] 32441- 0836 Dec, [facility] [address] [place] [address] 96083- 0887 Dec, Cervicalgia M54.2 ; COPD (chronic obstructive pulmonary disease) J44.9 and Hepatitis C B19.20 [facility] [address] [place] [address] 16140- 4089 Dec, Bipolar 2 disorder F31.81 ; History of hypertension Z86.79 ; History of anxiety Z86.59 ; Panic disorder with agoraphobia F40.01 and Epilepsy G40.909 [facility] [address] [place] [address] 85834- 4720 Nov, [facility] [address] [place] [address] 08659- 2525 Nov, [facility] [place] [id number] [place] [address] 65330- 4407 Nov, History of seizures Z87.898 ; OAB (overactive bladder) N32.81 ; Lumbago M54.5 ; Other chronic pain G89.29 ; Cervicalgia M54.2 ; Tobacco abuse Z72.0 ; Tobacco abuse counseling Z71.6 and Impaired fasting glucose R73.01 [facility] [address] [address]- 6131 14 Nov, 2015 Bipolar 2 disorder F31.81 ; PTSD (post-traumatic stress disorder) F43.10 ; History of anxiety Z86.59 ; History of COPD Z87.09 ; Panic disorder with agoraphobia F40.01 and Moderate depressed bipolar I disorder F31.32 [place] [address] [place] [address] 43777- 4377 12 Nov, 2015 PTSD (post-traumatic stress disorder) F43.10 [facility] [id number] [place] [address] [id number] 11 Nov, 2015 Dental examination Z01.20 and Dental caries K02.9 [facility] [address] [place] [address] 83746- 3371 08 Nov, 2015 History of hypertension Z86.79 ; History of hypothyroidism Z86.39 ; History of high cholesterol Z86.39 ; History of COPD Z87.09 and Overactive bladder N32.81 [facility] [address] [place] [address] 32865- 9566 Nov, Bipolar 2 disorder F31.81 and PTSD (post-traumatic stress disorder) F43.10 [facility] [address] [place] [address] 92532- 9719 Nov, PTSD (post-traumatic stress disorder) F43.10 ; Panic disorder with agoraphobia F40.01 ; Epilepsy G40.909 and Moderate depressed bipolar I disorder F31.32 [facility] [address] [place] [address] 07908- 2642 Nov, [place] [id number] [place] [address] 54290- 6121 Nov, [facility] [address] [place] [address] 62583- 7134 Oct, [place] [id number] [place] [address] 89797- 2770 Oct, Generalized anxiety disorder F41.1 ; Major depression, recurrent F33.9 and PTSD (post-traumatic stress disorder) F43.10 [facility] [address] [place] [address] 02543- 0641 Oct, Elevated fasting glucose R73.01 [facility] [address] [place] [address] 78799- 7828 Oct, Elevated fasting glucose R73.01 [facility] [address] 27463- 7545 Oct, History of COPD Z87.[address] 79061- 2313 15 Oct, 2015 General medical exam Z00.00 ; History of hypertension Z86.79 ; History of hypothyroidism Z86.39 ; History of hepatitis Z86.19 ; History of high cholesterol Z86.39 and History of seizures Z87.898 [place] [address] [place] [address] 43285- 5458 Oct, General medical exam Z00.00 ; History of hypertension Z86.79 ; History of hypothyroidism Z86.39 ; Bipolar 2 disorder F31.81 ; PTSD ( post-traumatic stress disorder) F43.10 ; History of hepatitis Z86.19 ; History of high cholesterol Z86.39 ; History of anxiety Z86.59 ; History of seizures Z87.898 ; History of DC (myocardial infarction) I25.2 and History of COPD Z87.09 [facility] [address] [place] [address] 93105- 9884 Oct, Generalized anxiety disorder F41.1 ; Depression F32.9 and PTSD (post-traumatic stress disorder) F43.10 [place] [id number] [place] [address] 67498- 2138 14 Jan, 2015 [place] [id number] [place] [address] 09865- 4010 Jan, [address] [place] [address]- 2546 Jun, [facility] [address] [place] [id number] Jun, [facility] [address] [facility] [id number] [address]- 5626 May, [facility] [address] [facility] [id number] [place] [address]- 3051 May, [facility] [address] [place] [id number] May, [facility] [address] [facility] [id number] [place] [address] 2546 May, [facility] [address] [place] [id number] May, [facility] [address] [facility] [id number] [place] [address]- 2036 May, IMMUNIZATIONS No Known Immunizations SOCIAL HISTORY Never Assessed REASON FOR VISIT Requests return call PLAN OF CARE VITAL SIGNS MEDICATIONS Unknown Medications RESULTS No Results PROCEDURES No Known procedures INSTRUCTIONS MEDICATIONS ADMINISTERED No Known Medications MEDICAL (GENERAL) HISTORY Type Description Date Medical History Hypothyroidism Medical History High cholesterol Medical History Hypertension Medical History Brain seizure Medical History Asthma Medical History COPD Medical History Hep C -2005 Medical History DC x 2 last in 2009 Medical History PTSD (post-traumatic stress disorder) Medical History Colon Cancer 2016 Medical History diabites II Surgical History tonsillectomy 1985 Surgical History partial hysterectomy 2004 Surgical History appendectomy 2004 Hospitalization History Surgery(s) only Hospitalization History pneumonia x3 days Hospitalization History Heart cath with stint 05/15/2016 Hospitalization History Diverticulitis, N/V[facility] 01/28/17
--- OUTSIDE RECORDS SUMMARY | 2019-01-26 07:12 | XMS REPORT ---
Author Author GERARDO [facility] Address [address] [place] [address] Care Team Providers Care Rn Patient Care Name Role Phone MARGIGERARDO Unavailable PROBLEMS Type Condition ICD9-CM Code [id number] Code Onset Dates Condition Status SNOMED Code Problem Other chronic pain G89.29 Active 45293104 Problem OAB (overactive bladder) N32.81 Active 356591314 Problem Tobacco abuse Z72.0 Active 29085536 Problem Cervicalgia M54.2 Active 52546325 Problem Lumbago M54.5 Active 619327508 Problem Hepatitis C B19.20 Active 65599957 Problem COPD (chronic obstructive pulmonary disease) J44.9 Active 54702639 Problem Diabetes E11.9 Active 22628457 Problem Type 2 diabetes mellitus without complications E11.9 Active 959018747 Problem Stress incontinence of urine N39.3 Active 25550044 Problem Bilateral claudication of lower limb I73.9 Active 724780854 Problem Seasonal allergic rhinitis due to other allergic trigger J30.89 Active 115378542 Problem Hypoglycemia E16.2 Active 238420287 Problem Hypertension, unspecified type I10 Active 08514977 Problem Bipolar affective disorder, currently depressed, mild F31.31 Active 813003288 Problem Hyperlipidemia, unspecified hyperlipidemia type E78.5 Active 10102709 Problem Fallen bladder N81.10 Active 106108678 Problem Chronic tension-type headache, not intractable G44.229 Active 300632194 Problem 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 Active 055807696 Problem Type 2 diabetes mellitus with hyperglycemia E11.65 Active 197161592 Problem Bipolar 2 disorder F31.81 Active 38113995 Problem Chronic post-traumatic stress disorder (PTSD) F43.12 Active 685972242 Problem History of hypothyroidism Z86.39 Active 792677121 Problem Stress incontinence N39.3 Active 29830789 Problem El's esophageal ulceration K22.10 Active 568810715 Problem 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 mellitus without complication, without long -term current use of insulin E11.9 Active 731244293 Problem Irritable bowel syndrome with diarrhea K58.0 Active 864695564 Problem Panic disorder with agoraphobia F40.01 Active 56403575 Problem Type 2 diabetes mellitus with hyperglycemia E11.65 Active 802714936 Problem Epilepsy G40.909 Active 69287741 Problem Hypertension, benign I10 Active 58244196 Problem History of PA (myocardial infarction) I25.2 Active 615455608 Problem Mood disorder F39 Active 78310708 Problem History of hypertension Z86.79 Active 356746980 Problem Uncontrolled type 2 diabetes mellitus without complication, without long-term current use of insulin E11.65 Active 370625493 Problem History of high cholesterol Z86.39 Active 132762400 Problem Bipolar I disorder with mood-congruent psychotic features F31.9 Active 555887000 Problem History of seizures Z87.898 Active 875129806 Problem Bipolar I disorder with duy F31.10 Active 88924859 Problem Primary insomnia F51.01 Active 3104548 Problem Gastritis and duodenitis K29.90 Active [id number] ALLERGIES No Information ENCOUNTERS Encounter Location Date Diagnosis [place] [address] [address] 17 Nov, 2018 [place] [address] 33604- 2222 05 Aug, 2018 [place] [address] [place] [id number] [place] [address] 69649- 0377 Jul, [facility] [address] [address]- 4673 Jul, Type 2 diabetes mellitus without complications E11.9 ; Fallen bladder N81.10 ; Stress incontinence of urine N39.3 ; Gall bladder disease K82.9 ; Periodontal abscess K05.219 ; Diarrhea, unspecified R19.7 ; Nausea with vomiting, unspecified R11.2 and Chronic tension-type headache, not intractable G44.229 [facility] [address] [address]- 2674 Jul, [facility] [address] 24587- 0872 Jul, [facility] [address] [place] [address] 49413- 7450 Jul, [facility] [address] [place] [id number] [place] [address] 610519- 2260 Jul, Bipolar 2 disorder F31.81 ; Panic disorder with agoraphobia F40.01 and Chronic post-traumatic stress disorder (PTSD) F43.12 [facility] [address] [place] [id number] [place] [address] 65145- 3273 Jun, [facility] [address] [place] [id number] [place] [address] 62866- 9107 Jun, [facility] [address] [place] [id number] [place] [address] 55950- 5539 Jun, Lumbago M54.5 [place] [address] [place] [id number] [place] [address] 24133- 6355 Jun, Type 2 diabetes mellitus with hyperglycemia E11.65 [facility] [address] [place] [id number] [place] [address] 64887- 9330 Jun, [facility] [address] [place] [id number] [place] [address] 39613- 1038 Jun, Type 2 diabetes mellitus with hyperglycemia E11.65 ; El 's esophageal ulceration K22.10 and Lumbago M54.5 [facility] [address] [place] [address] 34590- 2416 Jun, Type 2 diabetes mellitus with hyperglycemia E11.65 [facility] [address] [place] [address] 04614- 2970 Jun, [facility] [address] [place] [id number] [place] [address] 90543- 2744 Jun, [facility] [address] [place] [address] 68147- 1535 Jun, Bipolar affective disorder, currently depressed, mild F31.31 ; Chronic post-traumatic stress disorder (PTSD) F43.12 and Panic disorder with agoraphobia F40.01 [facility] [address] [facility] [id number] [address] 14 Jun, 2018 [facility] [address] [facility] [id number] [address] Jun, [facility] [address] [facility] [id number] [place] [address]- 4992 Jun, Type 2 diabetes mellitus with hyperglycemia E11.65 [facility] [address] [facility] [id number] [place] [address]- 3968 Jun, Uncontrolled type 2 diabetes mellitus with hyperglycemia E11.65 [facility] [address] [facility] [id number] [place] [address]- 9167 Jun, [facility] [address] [place] [id number] [address] 0158 May, Lumbago M54.5 [facility] [address] [facility] [id number] [place] [id number] May, [facility] [address] [facility] [id number] [place] [address]- 4061 May, [facility] [address] [facility] [id number] [place] [address]- 8398 May, [facility] [address] [id number] [address]- 8780 May, [facility] [address] [facility] [id number] [place] [address]- 6813 May, [facility] [address] [facility] [id number] [place] [address]- 2743 May, [facility] [address] [facility] [id number] [place] [address]- 9029 May, [facility] [address] [facility] [id number] [place] [address]- 7191 May, Lumbago M54.5 [place] [address] [address]- 2167 May, [place] [address] [place] [id number] [place] [address] 78009- [address], [address] of the chest R93.8 [place] [address] [place] [id number] [place] [address] 88075- 5710 Apr, Bipolar 2 disorder F31.81 ; Chronic post-traumatic stress disorder (PTSD) F43.12 and Panic disorder with agoraphobia F40.01 [place] [address] [place] [id number] [place] [address] 92549- [address] Apr, [address] of the chest R93.8 [place] [address] [place] [id number] [place] [address] 57994- [address] Apr, [address] of the chest R93.8 [place] [address] [place] [id number] [place] [address] 43069- 8392 Apr, [place] [address] [place] [id number] [place] [address] 53607- 1677 Apr, Type 2 diabetes mellitus with hyperglycemia E11.65 [place] [address] [place] [id number] [place] [address] 94254- 4104 Apr, 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 mellitus without complication, without long-term current use of insulin E11.9 ; Watery eyes H04.203 ; Low back pain M54.5 ; Other chronic pain G89.29 ; Chronic tension-type headache, not intractable G44.229 ; Uncontrolled type 2 diabetes mellitus without complication , without long-term current use of insulin E11.65 and Bronchitis J40 [place] [address] [place] [id number] [place] [address] 71801- 8939 Apr, [place] [address] [place] [id number] [place] [address] 09902- 1642 Apr, Lumbago M54.5 [place] [address] [place] [id number] [place] [address] 37183- 3570 March, [facility] [address] [place] [id number] [place] [address] 49828 -8992 March, Cough R05 ; Pneumonia due to infectious organism, unspecified laterality, unspecified part of lung J18.9 and Non-intractable vomiting with nausea, unspecified vomiting type R11.2 [facility] [address] [place] [id number] [place] [address] 25398- 1809 March, Bronchitis J40 [place] [address] 79182- 0074 March, [place] [address] 77872- 6386 March, El's esophageal ulceration K22.10 and Type 2 diabetes mellitus with hyperglycemia E11.65 [place] [address] [place] [id number] [place] [address] 56108- 1767 March, Panic disorder with agoraphobia F40.01 ; Chronic post- traumatic stress disorder (PTSD) F43.12 and Bipolar 2 disorder F31.81 [place] [address] [place] [id number] [place] [address] 58006- 2555 March, Type 2 diabetes mellitus with hyperglycemia E11.65 [place] [address] [place] [id number] [place] [address] 06626- 9805 March, [place] [address] [place] [id number] [place] [address] 04557- 7502 March, Lumbago M54.5 [place] [address] [place] [id number] [place] [address] 78689- 5116 March, [place] [address] [place] [id number] [place] [address] 47411- 0993 March, Irritable bowel syndrome with diarrhea K58.0 ; Primary insomnia F51.01 ; Type 2 diabetes mellitus with hyperglycemia E11.65 and snf 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 [place] [address] [place] [id number] [place] [address] 32793- 9882 March, [facility] [address] [address]- 3353 Jan, [facility] [address] [place] [id number] [place] [address] 28589- 7446 Jan, [facility] [address] [place] [id number] [place] [address] 47218- 7768 Jan, [place] [address] [place] [id number] [place] [address] 53137- 0637 Jan, [place] [address] [place] [id number] [place] [address] 62430- 9068 Jan, Dizziness R42 [place] [address] [place] [id number] [place] [address] 86694- 6550 Jan, Bipolar affective disorder, currently depressed, mild F31.31 ; Panic disorder with agoraphobia F40.01 and Chronic post-traumatic stress disorder (PTSD) F43.12 [place] [address] [place] [id number] [place] [address] 56548- 4065 Jan, Dizziness R42 [place] [address] [place] [id number] [place] [address] 22280- 1566 Jan, Chest pain, unspecified type R07.9 ; Exertional dyspnea R06.09 ; Hypertension, unspecified type I10 and Hyperlipidemia, unspecified hyperlipidemia type E78.5 [place] [address] [place] [address] 83393- 9934 Jan, [place] [address] [place] [address] 86962- 9922 Jan, Lumbago M54.5 [place] [address] [place] [id number] [place] [address] 33277- 5056 Jan, El's esophageal ulceration K22.10 ; Blister (nonthermal ) of oral cavity, initial encounter S00.522A ; Local infection of the skin and subcutaneous tissue, unspecified L08.9 ; Type 2 diabetes mellitus with hyperglycemia E11.65 ; 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 and Stress incontinence N39.3 [facility] [address] [place] [address] 47963- 2181 27 Dec, 2017 [facility] [address] [place] [id number] [place] [address] 68136- 0580 27 Dec, 2017 [facility] [address] [place] [id number] [place] [address] 51036- 3611 19 Dec, 2017 [facility] [address] [place] [id number] [place] [address] [id number] 16 Dec, 2017 Dental examination Z01.20 [facility] [address] 72449- 8978 15 Dec, 2017 Acute pain of right knee M25.561 [facility] [address] [place] [id number] [place] [address] 60243- 5486 14 Dec, 2017 [facility] [address] [place] [id number] [place] [address] 61197- 6241 14 Dec, 2017 [facility] [address] [place] [id number] [place] [address] 03742- 7280 14 Dec, 2017 Lumbago M54.5 ; Acute pain of right knee M25.561 and Seasonal allergic rhinitis due to other allergic trigger J30.89 [facility] [address] [place] [address] 09112- 4278 Dec, Type 2 diabetes mellitus with hyperglycemia E11.65 [facility] [address] [place] [id number] [place] [address] 28590- 5502 Dec, [facility] [address] [place] [id number] [place] [address] 60893- 7959 Dec, [facility] [address] [place] [id number] [place] [address] 66262- 3574 23 Dec, 2017 [facility] [address] [place] [id number] [place] [address] 90498- 1765 15 Dec, 2017 [facility] [address] [place] [address]- 8078 15 Dec, 2017 Chronic post-traumatic stress disorder (PTSD) F43.12 and Panic disorder with agoraphobia F40.01 [facility] [address] [place] [id number] [place] [address] 95383- 8669 13 Dec, 2017 Low back pain M54.5 [facility] [address] [place] [id number] [place] [address] 81736- 0080 12 Dec, 2017 Type 2 diabetes mellitus with hyperglycemia E11.65 ; snf 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 ; Low back pain M54.5 ; Other chronic pain G89.29 and Encounter for therapeutic drug level monitoring Z51.81 [place] [address] [place] [id number] [place] [address] 10460- 9012 09 Dec, 2017 Coughing R05 [place] [address] [place] [id number] [place] [address] 09305- 9722 09 Dec, 2017 [facility] [address] [id number] 07 Dec, 2017 Dental examination Z01.20 [place] [address] [place] [id number] [place] [address] 85882- 5600 Nov, Type 2 diabetes mellitus without complications E11.9 and Encounter for therapeutic drug level monitoring Z51.81 [place] [address] [place] [id number] [place] [address] 52807- 0421 Nov, [place] [address] [place] [id number] [place] [address] 57522- 9693 Oct, Type 2 diabetes mellitus without complications E11.9 [place] [address] [place] [id number] [place] [address] 05332- 6064 Oct, Type 2 diabetes mellitus with hyperglycemia E11.65 [facility] [address] [place] [id number] [place] [address] 43398- 0191 Aug, Type 2 diabetes mellitus without complications E11.9 [facility] [address] [place] [id number] [place] [address] 63058- 4494 Aug, Type 2 diabetes mellitus without complications E11.9 ; Hypoglycemia E16.2 ; Lumbago M54.5 ; Stress incontinence of urine N39.3 and History of PA (myocardial infarction) I25.2 [facility] [address] [place] [id number] [place] [address] 61752- 9285 Jun, [facility] [address] [place] [id number] [place] [address] 14648- 0637 May, [facility] [address] [place] [id number] [place] [address] 96412- 6876 Apr, Panic disorder with agoraphobia F40.01 [facility] [address] [place] [id number] [place] [address] 81683- 0145 Apr, Panic disorder with agoraphobia F40.01 [facility] [address] [place] [id number] [place] [address] 84393- 0111 Apr, [facility] [address] [place] [id number] [place] [address] 57316- 8652 March, Other chronic pain G89.29 [facility] [address] [place] [id number] [place] [address] 32453- 4893 March, [facility] [address] [place] [id number] [place] [address] 70386- 5246 March, [facility] [address] [place] [id number] [place] [address] 57675- 7313 March, [facility] [address] [place] [id number] [place] [address] 58135- 2487 March, [facility] [address] [place] [id number] [place] [address] 86619- 5951 March, Type 2 diabetes mellitus without complications E11.9 [facility] [address] [place] [id number] [place] [address] 39756- 9579 March, Diarrhea, unspecified type R19.7 [facility] [address] [place] [address]- 8216 March, Bipolar 2 disorder F31.81 ; Chronic post-traumatic stress disorder (PTSD) F43.12 and Type 2 diabetes mellitus with hyperglycemia E11.65 [place] [address] [place] [address] 59909- 4853 March, [place] [address] [place] [id number] [place] [address] 92598- 2427 March, [place] [address] [place] [id number] [place] [address] 58700- 1648 March, Hypertension, benign I10 ; Type 2 diabetes mellitus with hyperglycemia E11.65 ; Hepatitis C B19.20 ; Gastritis and duodenitis K29.90 and Dysuria R30.0 [place] [address] [place] [id number] [place] [address] 07714- 5833 March, Hypertension, benign I10 ; Type 2 diabetes mellitus with hyperglycemia E11.65 ; Hepatitis C B19.20 ; Gastritis and duodenitis K29.90 and Dysuria R30.0 [place] [address] [place] [id number] [place] [address] 58399- 7859 March, Panic disorder with agoraphobia F40.01 ; Chronic post- traumatic stress disorder (PTSD) F43.12 ; Epilepsy G40.909 and Bipolar I disorder with mood-congruent psychotic features F31.9 [place] [address] [address]- 1358 March, [place] [address] [place] [id number] [place] [address] 45246- 6548 March, Type 2 diabetes mellitus with hyperglycemia E11.65 [place] [address] [place] [id number] [place] [address] 49944- 6646 Jan, Bipolar I disorder with duy F31.10 [place] [address] [place] [address] 10662- 4959 Jan, Bipolar 2 disorder F31.81 ; Chronic post-traumatic stress disorder (PTSD) F43.12 and Type 2 diabetes mellitus with hyperglycemia E11.65 [facility] [address] [address]- 6756 17 Jan, 2017 [facility] [address] [place] [id number] [place] [address] 82676- 3986 17 Jan, 2017 [facility] [address] [place] [id number] [place] [address] 31075- 8187 14 Jan, 2017 Panic disorder with agoraphobia F40.01 [facility] [address] [place] [id number] [place] [address] 22026- 6535 13 Jan, 2017 Panic disorder with agoraphobia F40.01 ; Bipolar I disorder with mood-congruent psychotic features F31.9 ; Chronic post-traumatic stress disorder (PTSD) F43.12 and Epilepsy G40.909 [facility] [address] [place] [id number] [place] [address] 44937- 8783 Jan, [facility] [address] [place] [id number] [place] [address] 98439- 1134 Jan, [facility] [address] [place] [id number] [place] [address] 15074- 9905 10 Jan, 2017 Type 2 diabetes mellitus without complications E11.9 and Hypoglycemia E16.2 [facility] [address] [place] [id number] [place] [address] 06177- 4208 07 Jan, 2017 Type 2 diabetes mellitus without complications E11.9 ; Primary insomnia F51.01 and Hypertension, benign I10 [facility] [address] [address]- 0135 06 Jan, 2017 [facility] [address] [place] [id number] [place] [address] [id number] Jan, [facility] [address] [place] [id number] [place] [address] 18921- 4411 31 Dec, 2016 Type 2 diabetes mellitus with hyperglycemia E11.65 [facility] [address] [place] [address] 83966- 0728 27 Dec, 2016 [facility] [address] [address]- 8737 Dec, Bipolar 2 disorder F31.81 ; Panic disorder with agoraphobia F40.01 ; Chronic post-traumatic stress disorder (PTSD) F43.12 and Epilepsy G40.909 [facility] [address] [address]- 8734 Dec, [facility] [address] [place] [id number] [place] [address] 62819- 8405 Dec, [place] [address] [place] [address] 23360- 9180 Dec, Bipolar 2 disorder F31.81 ; Panic disorder with agoraphobia F40.01 ; Chronic post-traumatic stress disorder (PTSD) F43.12 and Epilepsy G40.909 [place] [address] [place] [id number] [place] [address] 50031- 8169 Dec, [facility] [address] [place] [id number] [place] [address] 58965- 5789 Dec, [facility] [address] [place] [address] 80417- 4240 Dec, [facility] [address] [place] [id number] [place] [address] 47570- 1087 Dec, Type 2 diabetes mellitus with hyperglycemia E11.65 ; 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 and Lumbago M54.5 [place] [address] [place] [address] 06764- 5169 Dec, [facility] [address] [place] [address] 76850- 1136 Dec, [place] [address] [place] [id number] [place] [address] 58747- 0887 Dec, [facility] [address] [address] -0176 Dec, Pain of left leg M79.605 and Pain in right leg M79.604 [place] [address] [place] [id number] [place] [address] 44887- 2702 14 Dec, 2016 [place] [address] 11061- 1919 08 Dec, 2016 Type 2 diabetes mellitus with hyperglycemia E11.65 [place] [address] 38492- 4690 Dec, [place] [address] 75933- 0274 Dec, Type 2 diabetes mellitus with hyperglycemia E11.65 ; snf 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 ; Vagina, candidiasis B37.3 and Other chronic pain G89.29 [place] [address] [address] Nov, Panic disorder with agoraphobia F40.01 [place] [address] [address]- [address] Nov, [place] [address] [place] [id number] [place] [address]- [address] Nov, [place] [address] [address] Nov, Hypoglycemia E16.2 [place] [id number] [place] [address]- [address]00 Nov, [place] [address] [id number] [place] [address]259- 5946 Nov, [place] [id number] [place] [address]99[address]- 6074 Nov, [facility] [id number] [place] [address] 96932- 3074 Nov, Type 2 diabetes mellitus with hyperglycemia E11.65 and 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 [facility] [address] 72859- 0232 Nov, Panic disorder with agoraphobia F40.01 ; Bipolar 2 disorder F31.81 ; Chronic post-traumatic stress disorder (PTSD) F43.12 and Epilepsy G40.909 [facility] [id number] [place] [address] 97026- 4523 Nov, Panic disorder with agoraphobia F40.01 [facility] [id number] [place] [address] 22219- 1321 Oct, [facility] [id number] [place] [address] 55825- 9446 Oct, [facility] [id number] [place] [address] 52044- 5519 Oct, Bipolar 2 disorder F31.81 ; Panic disorder with agoraphobia F40.01 and Mood disorder F39 [facility] [id number] [place] [address] 91791- 0738 Oct, Diabetes E11.9 ; Type 2 diabetes mellitus with hyperglycemia E11.65 and 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 [facility] [id number] [place] [address] 86086- 6572 Oct, [facility] [id number] [place] [address] 93469- 9518 Sep, [facility] [address] [place] [address] 71976- 6249 Sep, Bipolar 2 disorder F31.81 and Mood disorder F39 [facility] [id number] [place] [address] 73127- 6601 Sep, [facility] [id number] [place] [address] 40406- 5409 Sep, Uncontrolled type 2 diabetes mellitus without complication, without long-term current use of insulin E11.65 [facility] [id number] [place] [address] 48262- 3878 Sep, [facility] [address] [address] 3824 18 Sep, 2016 [facility] [id number] [place] [address] 16566- 6810 Sep, [facility] [id number] [place] [address] 94811- 7932 Sep, [facility] [id number] [place] [address] 13926- 4194 Sep, Bipolar 2 disorder F31.81 ; Chronic post-traumatic stress disorder (PTSD) F43.12 ; Panic disorder with agoraphobia F40.01 and Epilepsy G40.909 [facility] [id number] [place] [address] 22004- 7608 Sep, Bipolar 2 disorder F31.81 ; PTSD (post-traumatic stress disorder) F43.10 and Panic disorder with agoraphobia F40.01 [facility] [id number] [place] [address] 94996- 5762 Sep, [facility] [id number] [place] [address] 66089- 4760 Aug, History of seizures Z87.898 ; Panic disorder with agoraphobia F40.01 and Bipolar 2 disorder F31.81 [facility] [address] [address] 2238 Aug, [facility] [address] [address]- 2127 17 Aug, 2016 [facility] [address] [place] [address] 73346- 8409 Aug, [facility] [id number] [place] [address] 69536- 4135 Aug, [facility] [address] [address]- 5908 Aug, [facility] [id number] [place] [address] 42153- 1661 Aug, [facility] [id number] [place] [address] 54647- 0920 Aug, Hypoglycemia E16.2 and Bilateral impacted cerumen H61.23 [facility] [id number] [place] [address] 84454- 9308 Aug, [facility] [address] 69817- 2314 Jul, [facility] [address] 68572- 2821 Jul, [facility] [address] 21480- 3031 Jul, Bipolar 2 disorder F31.81 ; Panic disorder with agoraphobia F40.01 ; PTSD (post-traumatic stress disorder) F43.10 and Epilepsy G40.909 [facility] [address] 81831- 5879 Jul, [facility] [id number] [place] [address] 14843- 7040 Jul, Type 2 diabetes mellitus without complications E11.9 and Coughing R05 [facility] [id number] [place] [address] 35978- 3449 Jul, [facility] [id number] [place] [address] 11365- 4936 Jun, [facility] [id number] [place] [address] 79239- 7050 Jun, Bipolar 2 disorder F31.81 ; PTSD (post-traumatic stress disorder) F43.10 and Panic disorder with agoraphobia F40.01 [facility] [id number] [place] [address] 05489- 6312 Jun, [facility] [id number] [place] [address] 32973- 7624 Jun, [facility] [id number] [place] [address] 33370- 0989 Jun, [facility] [address] 00247- 8241 Jun, Type 2 diabetes mellitus without complications E11.9 and COPD (chronic obstructive pulmonary disease) J44.9 [facility] [address] [place] [address] [id number] May, Dental examination Z01.20 and Dental caries K02.9 [facility] [address] 25932- 3758 May, Bipolar 2 disorder F31.81 ; PTSD (post-traumatic stress disorder) F43.10 and Panic disorder with agoraphobia F40.01 [facility] [id number] [place] [address] 02821- 8689 May, Lumbago with sciatica, right side M54.41 ; Other chronic pain G89.29 and Uncontrolled type 2 diabetes mellitus without complication, without long-term current use of insulin E11.65 [facility] [id number] [place] [address] 16335- 5826 May, Chronic bronchitis, unspecified chronic bronchitis type J42 [facility] [id number] [place] [address] 45941- 4682 May, [facility] [id number] [place] [address] 54942- 9988 May, [facility] [id number] [place] [address] 21981- 2464 May, Chest pain, unspecified type R07.9 ; Tobacco use Z72.0 ; Type 2 diabetes mellitus without complications E11.9 ; Essential hypertension I10 ; Hyperlipidemia, unspecified hyperlipidemia type E78.5 ; Obesity (BMI 30- 39.9) E66.9 ; History of hypothyroidism Z86.39 ; Chronic obstructive pulmonary disease, unspecified COPD type J44.9 ; Anxiety F41.9 ; Bilateral claudication of lower limb I73.9 and Bipolar 2 disorder F31.81 [facility] [address] [place] [address] 85722- 1294 05 May, 2016 Bipolar 2 disorder F31.81 ; Panic disorder with agoraphobia F40.01 and Tobacco abuse Z72.0 [facility] [id number] [place] [address] 96618- 3096 30 Apr, 2016 [facility] [address] 45752- 4561 Apr, [facility] [id number] [place] [address] 94055- 3448 Apr, [facility] [address] 93245- 3286 Apr, Bipolar 2 disorder F31.81 ; Panic disorder with agoraphobia F40.01 and PTSD (post-traumatic stress disorder) F43.10 [facility] [id number] [place] [address] 71770- 7226 Apr, Chronic bronchitis, unspecified chronic bronchitis type J42 ; Cervical neuritis M54.12 and Thoracic neuritis M54.14 [facility] [id number] [place] [address] 93574- 3713 Apr, [facility] [id number] [place] [address] 68398- 2477 Apr, Cervicalgia M54.2 [facility] [id number] [place] [address] 82381- 9530 14 Apr, 2016 Bipolar 2 disorder F31.81 ; Panic disorder with agoraphobia F40.01 and PTSD (post-traumatic stress disorder) F43.10 [facility] [address] [place] [id number] [place] [address] 85084 -9048 13 Apr, 2016 [facility] [address] [place] [id number] [place] [address] 05849 -0416 09 Apr, 2016 Cough R05 and Tobacco dependence F17.[address] [place] [address]- 1244 Apr, [facility] [id number] [place] [address] 45220- 4395 Apr, [facility] [id number] [place] [address] 74608- 6973 March, Bipolar 2 disorder F31.81 ; Panic disorder with agoraphobia F40.01 and Generalized anxiety disorder F41.1 [facility] [id number] [place] [address] 41031- 4656 March, Closed displaced fracture of fifth metatarsal bone of right foot with routine healing, subsequent encounter S92.351D [facility] [id number] [place] [address] 88573- 8094 March, Bronchitis J40 [facility] [address] 35412- 7402 March, [facility] [id number] [place] [address] 40810- 1221 March, [facility] [id number] [place] [address] 58332- 0671 March, Foot pain, right M79.671 ; Cervicalgia M54.2 and 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 mellitus without complication, 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 [facility] [id number] [place] [address] 04036- 9249 March, Fracture of fifth metatarsal bone of right foot S92.351A [facility] [id number] [place] [address] 51796- 1732 March, [facility] [id number] [place] [address] 09805- 1302 Jan, Fracture of fifth metatarsal bone of right foot S92.351A [facility] [id number] [place] [address] 02779- 4794 Jan, Bipolar 2 disorder F31.81 ; PTSD (post-traumatic stress disorder) F43.10 ; Panic disorder with agoraphobia F40.01 and Epilepsy G40.909 [facility] [id number] [place] [address] 08987- 5790 Jan, History of PA (myocardial infarction) I25.2 and History of high cholesterol Z86.39 [facility] [address] 07619- 1224 Jan, Bipolar 2 disorder F31.81 ; Panic disorder with agoraphobia F40.01 ; Tobacco abuse Z72.0 and PTSD (post-traumatic stress disorder) F43.10 [facility] [address] 78796- 1163 Jan, Fracture of fifth metatarsal bone of right foot S92.351A [facility] [address] 19504- 9829 Jan, [facility] [address] 01349- 5798 Jan, History of high cholesterol Z86.39 [facility] [address] 57667- 4030 Jan, History of PA (myocardial infarction) I25.2 [facility] [id number] [place] [address] 34880- 7218 Jan, [facility] [address] 77180- 7470 Dec, Back pain M54.9 ; Diabetes E11.9 ; Right knee pain M25.561 and Chest pain R07.9 [facility] [address] 30139- 7307 Dec, [facility] [address] 27581- 8052 Dec, [facility] [address] 03035- 9728 Dec, Cervicalgia M54.2 [facility] [id number] [place] [address] 47493- 8376 Dec, Bipolar 2 disorder F31.81 ; PTSD (post-traumatic stress disorder) F43.10 ; Panic disorder with agoraphobia F40.01 and Epilepsy G40.909 [facility] [id number] [place] [address] 49973- 8108 08 Jan, 2016 Bipolar 2 disorder F31.81 ; PTSD (post-traumatic stress disorder) F43.10 and Panic disorder with agoraphobia F40.01 [facility] [address] 75152- 3490 Dec, Diabetes E11.9 [facility] [address] 24333- 5002 Dec, [facility] [address] 86883- 2427 Dec, Other chronic pain G89.29 ; Hepatitis C B19.20 and History of seizures Z87.898 [facility] [id number] [place] [address] 17281- 5305 Dec, [facility] [address] 37323- 0415 Dec, Bipolar 2 disorder F31.81 and Other chronic pain G89.29 [facility] [address] 14995- 0209 Dec, Cervicalgia M54.2 and Diabetes E11.9 [facility] [id number] [place] [address] 88182- 5137 Dec, [facility] [address] 30552- 8715 Dec, [facility] [address] 65941- 8779 Dec, [facility] [address] [place] [address] 389572- 2546 16 Dec, 2015 [facility] [id number] [place] [address] 89195- 6573 Dec, Type 2 diabetes mellitus without complications E11.9 [facility] [id number] [place] [address] 34067- 0409 10 Dec, 2015 [facility] [id number] [place] [address] 21120- 9335 Dec, History of seizures Z87.898 and Hepatitis C B19.20 [facility] [id number] [place] [address] 61866- 6632 Dec, Hepatitis C B19.20 [facility] [id number] [place] [address] 72146- 4571 Dec, [facility] [id number] [place] [address] 91588- 5358 Dec, Cervicalgia M54.2 ; COPD (chronic obstructive pulmonary disease) J44.9 and Hepatitis C B19.20 [facility] [id number] [place] [address] 94016- 7447 Dec, Bipolar 2 disorder F31.81 ; History of hypertension Z86.79 ; History of anxiety Z86.59 ; Panic disorder with agoraphobia F40.01 and Epilepsy G40.909 [facility] [id number] [place] [address] 94763- 1189 Nov, [facility] [id number] [place] [address] 68479- 8151 Nov, [facility] [id number] [place] [address] 48088- 9927 Nov, History of seizures Z87.898 ; OAB (overactive bladder) N32.81 ; Lumbago M54.5 ; Other chronic pain G89.29 ; Cervicalgia M54.2 ; Tobacco abuse Z72.0 ; Tobacco abuse counseling Z71.6 and Impaired fasting glucose R73.01 [facility] [address] [address]- 4654 14 Nov, 2015 Bipolar 2 disorder F31.81 ; PTSD (post-traumatic stress disorder) F43.10 ; History of anxiety Z86.59 ; History of COPD Z87.09 ; Panic disorder with agoraphobia F40.01 and Moderate depressed bipolar I disorder F31.32 [facility] [id number] [place] [address] 57377- 0108 12 Nov, 2015 PTSD (post-traumatic stress disorder) F43.10 [facility] [id number] [place] [address] [id number] 11 Nov, 2015 Dental examination Z01.20 and Dental caries K02.9 [facility] [id number] [place] [address] 04698- 0785 08 Nov, 2015 History of hypertension Z86.79 ; History of hypothyroidism Z86.39 ; History of high cholesterol Z86.39 ; History of COPD Z87.09 and Overactive bladder N32.81 [facility] [id number] [place] [address] 09148- 4180 Nov, Bipolar 2 disorder F31.81 and PTSD (post-traumatic stress disorder) F43.10 [facility] [address] [place] [address] 74604- 2820 Nov, PTSD (post-traumatic stress disorder) F43.10 ; Panic disorder with agoraphobia F40.01 ; Epilepsy G40.909 and Moderate depressed bipolar I disorder F31.32 [facility] [address] [place] [address] 02288- 6000 Nov, [facility] [id number] [place] [address] 32847- 7494 Nov, [facility] [id number] [place] [address] 07932- 4359 Oct, [facility] [id number] [place] [address] 76723- 1313 Oct, Generalized anxiety disorder F41.1 ; Major depression, recurrent F33.9 and PTSD (post-traumatic stress disorder) F43.10 [facility] [id number] [place] [address] 30843- 8160 Oct, Elevated fasting glucose R73.01 [facility] [id number] [place] [address] 38062- 4463 Oct, Elevated fasting glucose R73.01 [facility] [address] 35123- 3100 Oct, History of COPD Z87.[address] 58331- 3890 15 Oct, 2015 General medical exam Z00.00 ; History of hypertension Z86.79 ; History of hypothyroidism Z86.39 ; History of hepatitis Z86.19 ; History of high cholesterol Z86.39 and History of seizures Z87.898 [facility] [id number] [place] [address] 99253- 7121 Oct, General medical exam Z00.00 ; History of hypertension Z86.79 ; History of hypothyroidism Z86.39 ; Bipolar 2 disorder F31.81 ; PTSD ( post-traumatic stress disorder) F43.10 ; History of hepatitis Z86.19 ; History of high cholesterol Z86.39 ; History of anxiety Z86.59 ; History of seizures Z87.898 ; History of PA (myocardial infarction) I25.2 and History of COPD Z87.09 [facility] [id number] [place] [address] 80833- 0004 Oct, Generalized anxiety disorder F41.1 ; Depression F32.9 and PTSD (post-traumatic stress disorder) F43.10 [facility] [place] [id number] [place] [address] 63508- 6124 14 Jan, 2015 [facility] [id number] [place] [address] 41496- 1509 Jan, [address] [place] [address]- 2546 Jun, [facility] [address] [id number] Jun, [facility] [address] [facility] [id number] [address]- 2546 May, [facility] [address] [facility] [id number] [address]- 2546 May, [facility] [address] [id number] May, [facility] [address] [facility] [facility] [id number] [address]- 2546 May, [facility] [address] [place] [id number] May, [facility] [address] [facility] [id number] [address]- 2546 May, IMMUNIZATIONS No Known Immunizations SOCIAL HISTORY Never Assessed REASON FOR VISIT Medication refill request PLAN OF CARE VITAL SIGNS MEDICATIONS Medication Instructions Dosage Frequency Start Date End Date Duration Status BD Pen Needle Stefanie U/F 32G X 4 MM DX- E11.9 5 times per day as directed Jun, Active RESULTS No Results PROCEDURES No Known procedures INSTRUCTIONS MEDICATIONS ADMINISTERED No Known Medications MEDICAL (GENERAL) HISTORY Type Description Date Medical History Hypothyroidism Medical History High cholesterol Medical History Hypertension Medical History Brain seizure Medical History Asthma Medical History COPD Medical History Hep C -2004 Medical History PA x 2 last in [...]
--- OUTSIDE RECORDS SUMMARY | 2019-01-26 07:12 | XMS REPORT ---
Author Author GERARDO KISER [facility] Address [address] [place] [address] Care Team Providers Care Sustainable Development Policy Analyst Name Role Phone GERARDO KISER Unavailable PROBLEMS ALLERGIES No Information ENCOUNTERS IMMUNIZATIONS No Known Immunizations SOCIAL HISTORY No smoking Hx information available REASON FOR VISIT PLAN OF CARE VITAL SIGNS MEDICATIONS Unknown Medications RESULTS No Results PROCEDURES No Known procedures INSTRUCTIONS MEDICATIONS ADMINISTERED No Known Medications MEDICAL (GENERAL) HISTORY
--- OUTSIDE RECORDS SUMMARY | 2019-01-26 07:13 | XMS REPORT ---
Author Author GERARDO KISER [facility] Address [address] [place] [address] Care Team Providers Care Manager [employer] Name Role Phone MARGI GERARDO Unavailable PROBLEMS Type Condition ICD9-CM Code [id number] Code Onset Dates Condition Status SNOMED Code Problem OAB (overactive bladder) N32.81 Active 230814165 Problem Epilepsy G40.909 Active 54339201 Problem Cervicalgia M54.2 Active 72283512 Problem Other chronic pain G89.29 Active 70098076 Problem Tobacco abuse Z72.0 Active 37739529 Problem Lumbago M54.5 Active 384006752 Problem Hepatitis C B19.20 Active 57966694 Problem COPD (chronic obstructive pulmonary disease) J44.9 Active 91991572 Problem Diabetes E11.9 Active 30491493 Problem Bipolar I disorder with duy F31.10 Active 24479240 Problem Type 2 diabetes mellitus without complications E11.9 Active 315598835 Problem Stress incontinence of urine N39.3 Active 93831513 Problem Bilateral claudication of lower limb I73.9 Active 816794721 Problem Seasonal allergic rhinitis due to other allergic trigger J30.89 Active 444927031 Problem Hyperlipidemia, unspecified hyperlipidemia type E78.5 Active 47436993 Problem Hypertension, unspecified type I10 Active 97219051 Problem Chronic tension-type headache, not intractable G44.229 Active 832513897 Problem 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 mellitus without complication, without long -term current use of insulin E11.9 Active 365981981 Problem Type 2 diabetes mellitus with hyperglycemia E11.65 Active 736992534 Problem Chronic post-traumatic stress disorder (PTSD) F43.12 Active 390153286 Problem History of hypothyroidism Z86.39 Active 373136636 Problem Hypoglycemia E16.2 Active 520412827 Problem El's esophageal ulceration K22.10 Active 352504611 Problem Bipolar affective disorder, currently depressed, mild F31.31 Active 185339863 Problem Irritable bowel syndrome with diarrhea K58.0 Active 343551329 Problem Stress incontinence N39.3 Active 91395086 Problem History of hypertension Z86.79 Active 319980062 Problem Uncontrolled type 2 diabetes mellitus without complication, without long-term current use of insulin E11.65 Active 839130116 Problem Panic disorder with agoraphobia F40.01 Active 53179910 Problem Type 2 diabetes mellitus with hyperglycemia E11.65 Active 921717557 Problem History of seizures Z87.898 Active 848599823 Problem MCFP 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 Active 707784294 Problem History of [place] (myocardial infarction) I25.2 Active 130613189 Problem Mood disorder F39 Active 19326728 Problem Bipolar 2 disorder F31.81 Active 23470575 Problem Gastritis and duodenitis K29.90 Active 411239777 Problem History of high cholesterol Z86.39 Active 242512422 Problem Bipolar I disorder with mood-congruent psychotic features F31.9 Active 891992388 Problem Hypertension, benign I10 Active 84442961 Problem Primary insomnia F51.01 Active [id number] ALLERGIES No Information ENCOUNTERS Encounter Location Date Diagnosis [facility] [id number] [place] [address] 67022- 2814 Nov, [facility] [id number] [place] [address] 03471- 0394 Jul, [facility] [id number] [place] [address] 66852- 5823 Jul, [facility] [id number] [place] [address] 82072- 0855 Jul, [facility] [id number] [place] [address] 28817- 8197 13 Jul, 2018 Bipolar 2 disorder F31.81 ; Panic disorder with agoraphobia F40.01 and Chronic post-traumatic stress disorder (PTSD) F43.12 [facility] [id number] [place] [address] 20353- 7084 Jun, [facility] [id number] [place] [address] 88781- 2049 Jun, [facility] [address] [id number] [address] 1347 Jun, Lumbago M54.5 [facility] [id number] [place] [address] 74036- 5376 Jun, Type 2 diabetes mellitus with hyperglycemia E11.65 [facility] [id number] [place] [address] 08350- 8213 Jun, [facility] [id number] [place] [address] 85674- 3277 Jun, Type 2 diabetes mellitus with hyperglycemia E11.65 ; El 's esophageal ulceration K22.10 and Lumbago M54.5 [facility] [id number] [place] [address] 84980- 9800 Jun, Type 2 diabetes mellitus with hyperglycemia E11.65 [facility] [id number] [place] [address] 66904- 7805 Jun, [facility] [id number] [place] [address] 03744- 2541 Jun, [facility] [address] [place] [address] 64316- 9805 Jun, Bipolar affective disorder, currently depressed, mild F31.31 ; Chronic post-traumatic stress disorder (PTSD) F43.12 and Panic disorder with agoraphobia F40.01 [facility] [address] [place] [address] 46547- 4024 Jun, [facility] [id number] [place] [address] 71797- 6514 Jun, [facility] [id number] [place] [address] 88057- 5111 Jun, Type 2 diabetes mellitus with hyperglycemia E11.65 [facility] [id number] [place] [address] 56796- 9621 Jun, Uncontrolled type 2 diabetes mellitus with hyperglycemia E11.65 [facility] [id number] [place] [address] 98023- 8820 Jun, [facility] [address] [id number] [place] [address]- 4452 May, Lumbago M54.5 [facility] [address] [id number] [place] [id number] May, [facility] [address] [facility] [id number] [place] [address]- 2136 May, [facility] [address] [facility] [id number] [place] [address] 2546 May, [facility] [address] [facility] [id number] [place] [address]- 3392 May, [facility] [address] [id number] [place] [address]- 7546 May, [facility] [address] [facility] [id number] [place] [address]- 9061 May, [facility] [address] [facility] [id number] [place] [address]- 7467 May, [facility] [address] [facility] [id number] [place] [address]- 9685 May, Lumbago M54.5 [facility] [address] [facility] [id number] [place] [address]- 5454 May, [facility] [address] [facility] [id number] [address] [address], [address] of the chest R93.8 [facility] [address] [facility] [id number] [place] [address]- 6672 Apr, Bipolar 2 disorder F31.81 ; Chronic post-traumatic stress disorder (PTSD) F43.12 and Panic disorder with agoraphobia F40.01 [facility] [address] [facility] [id number] [place] [address]- [address] Apr, [address] of the chest R93.8 [facility] [id number] [place] [address] 46656- 1424 20 Apr, [address] of the chest R93.8 [facility] [address] 94099- 2763 Apr, [facility] [id number] [place] [address] 76584- 9061 Apr, Type 2 diabetes mellitus with hyperglycemia E11.65 [facility] [address] 16795- 5056 Apr, 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 mellitus without complication, without long-term current use of insulin E11.9 ; Watery eyes H04.203 ; Low back pain M54.5 ; Other chronic pain G89.29 ; Chronic tension-type headache, not intractable G44.229 ; Uncontrolled type 2 diabetes mellitus without complication , without long-term current use of insulin E11.65 and Bronchitis J40 [facility] [address] 91163- 3794 Apr, [facility] [id number] [place] [address] 41690- 5135 Apr, Lumbago M54.5 [facility] [id number] [place] [address] 12477- 1592 March, [facility] [id number] [place] [address] 99085 -4651 March, Cough R05 ; Pneumonia due to infectious organism, unspecified laterality, unspecified part of lung J18.9 and Non-intractable vomiting with nausea, unspecified vomiting type R11.2 [facility] [id number] [place] [address] 91780- 6121 March, Bronchitis J40 [facility] [id number] [place] [address] 59283- 8976 March, [facility] [id number] [place] [address] 84032- 1782 March, El's esophageal ulceration K22.10 and Type 2 diabetes mellitus with hyperglycemia E11.65 [facility] [id number] [place] [address] 33807- 4178 March, Panic disorder with agoraphobia F40.01 ; Chronic post- traumatic stress disorder (PTSD) F43.12 and Bipolar 2 disorder F31.81 [facility] [id number] [place] [address] 57021- 3446 March, Type 2 diabetes mellitus with hyperglycemia E11.65 [facility] [id number] [place] [address] 92062- 9435 March, [facility] [address] 22616- 8060 March, Lumbago M54.5 [facility] [id number] [place] [address] 75065- 4028 March, [facility] [id number] [place] [address] 41147- 2726 March, Irritable bowel syndrome with diarrhea K58.0 ; Primary insomnia F51.01 ; Type 2 diabetes mellitus with hyperglycemia E11.65 and MCFP 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 [facility] [id number] [place] [address] 55103- 9608 March, [facility] [id number] [address]- 1256 Jan, [facility] [id number] [place] [address] 10794- 3377 Jan, [facility] [id number] [place] [address] 65588- 2908 Jan, [facility] [id number] [place] [address] 03608- 0646 Jan, [facility] [id number] [place] [address] 10342- 3021 Jan, Dizziness R42 [facility] [address] [place] [address]- 9655 Jan, Bipolar affective disorder, currently depressed, mild F31.31 ; Panic disorder with agoraphobia F40.01 and Chronic post-traumatic stress disorder (PTSD) F43.12 [facility] [id number] [place] [address] 64532- 1172 Jan, Dizziness R42 [facility] [address] 23196- 3648 Jan, Chest pain, unspecified type R07.9 ; Exertional dyspnea R06.09 ; Hypertension, unspecified type I10 and Hyperlipidemia, unspecified hyperlipidemia type E78.5 [facility] [address] 43679- 1024 Jan, [facility] [id number] [place] [address] 42651- 8683 Jan, Lumbago M54.5 [facility] [id number] [place] [address] 54072- 4187 Jan, Le's esophageal ulceration K22.10 ; Blister (nonthermal ) of oral cavity, initial encounter S00.522A ; Local infection of the skin and subcutaneous tissue, unspecified L08.9 ; Type 2 diabetes mellitus with hyperglycemia E11.65 ; human factors scientist 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 and Stress incontinence N39.3 [facility] [id number] [place] [address] 93139- 9955 Dec, [facility] [id number] [place] [address] 59773- 9885 Dec, [facility] [id number] [place] [address] 28671- 2213 Dec, [facility] [id number] [place] [address] [id number] Dec, Dental examination Z01.20 [facility] [id number] [place] [address] 25075- 8532 15 Dec, 2017 Acute pain of right knee M25.561 [facility] [id number] [place] [address] 51467- 0451 14 Dec, 2017 [facility] [id number] [place] [address] 25967- 7880 14 Dec, 2017 [facility] [id number] [place] [address] 44774- 3835 Dec, Lumbago M54.5 ; Acute pain of right knee M25.561 and Seasonal allergic rhinitis due to other allergic trigger J30.89 [facility] [id number] [place] [address] 44017- 0236 Dec, Type 2 diabetes mellitus with hyperglycemia E11.65 [facility] [id number] [place] [address] 72668- 8798 Dec, [facility] [id number] [place] [address] 29166- 5619 Dec, [facility] [id number] [place] [address] 95653- 6155 23 Dec, 2017 [facility] [id number] [place] [address] 39159- 6237 Dec, [facility] [id number] [place] [address] 70809- 0781 15 Dec, 2017 Chronic post-traumatic stress disorder (PTSD) F43.12 and Panic disorder with agoraphobia F40.01 [facility] [id number] [place] [address] 95954- 3496 13 Dec, 2017 Low back pain M54.5 [facility] [id number] [place] [address] 57919- 6615 12 Dec, 2017 Type 2 diabetes mellitus with hyperglycemia E11.65 ; MCFP 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 ; Low back pain M54.5 ; Other chronic pain G89.29 and Encounter for therapeutic drug level monitoring Z51.81 [facility] [id number] [place] [address] 29177- 6280 Dec, Coughing R05 [facility] [address] [address]- 7694 Dec, [facility] [address] [id number] Dec, Dental examination Z01.20 [facility] [id number] [place] [address] 65833- 6195 Nov, Type 2 diabetes mellitus without complications E11.9 and Encounter for therapeutic drug level monitoring Z51.81 [facility] [id number] [place] [address] 87660- 4305 Nov, [facility] [id number] [place] [address] 33731- 2105 Oct, Type 2 diabetes mellitus without complications E11.9 [facility] [id number] [place] [address] 08966- 8749 Oct, Type 2 diabetes mellitus with hyperglycemia E11.65 [facility] [address] [place] [address] 33315- 8424 Aug, Type 2 diabetes mellitus without complications E11.9 [facility] [address] [place] [address] 41663- 1604 Aug, Type 2 diabetes mellitus without complications E11.9 ; Hypoglycemia E16.2 ; Lumbago M54.5 ; Stress incontinence of urine N39.3 and History of [place] (myocardial infarction) I25.2 [facility] [address] [address]- 0424 Jun, [facility] [id number] [place] [address] 25049- 3245 May, [facility] [address] [place] [address] 70124- 0091 Apr, Panic disorder with agoraphobia F40.01 [facility] [id number] [place] [address] 94868- 4566 Apr, Panic disorder with agoraphobia F40.01 [facility] [address] [place] [address] 30017- 0808 Apr, [facility] [id number] [place] [address] 96138- 4951 March, Other chronic pain G89.29 [facility] [id number] [place] [address] 20318- 3871 March, [facility] [id number] [place] [address] 10222- 7712 March, [facility] [id number] [place] [address] 57480- 3584 March, [facility] [id number] [place] [address] 86603- 4243 March, [facility] [id number] [place] [address] 60937- 6454 March, Type 2 diabetes mellitus without complications E11.9 [facility] [id number] [place] [address] 09392- 3698 March, Diarrhea, unspecified type R19.7 [facility] [address] [place] [address] 43581- 7801 March, Bipolar 2 disorder F31.81 ; Chronic post-traumatic stress disorder (PTSD) F43.12 and Type 2 diabetes mellitus with hyperglycemia E11.65 [facility] [address] [address]- 6564 March, [facility] [id number] [place] [address] 23651- 7580 March, [facility] [id number] [place] [address] 60317- 2642 March, Hypertension, benign I10 ; Type 2 diabetes mellitus with hyperglycemia E11.65 ; Hepatitis C B19.20 ; Gastritis and duodenitis K29.90 and Dysuria R30.0 [facility] [address] [address]- 4452 March, Hypertension, benign I10 ; Type 2 diabetes mellitus with hyperglycemia E11.65 ; Hepatitis C B19.20 ; Gastritis and duodenitis K29.90 and Dysuria R30.0 [facility] [id number] [place] [address] 48471- 6577 March, Panic disorder with agoraphobia F40.01 ; Chronic post- traumatic stress disorder (PTSD) F43.12 ; Epilepsy G40.909 and Bipolar I disorder with mood-congruent psychotic features F31.9 [facility] [id number] [place] [address] 63522- 2794 March, [facility] [id number] [place] [address] 26637- 9066 March, Type 2 diabetes mellitus with hyperglycemia E11.65 [facility] [id number] [place] [address] 99311- 1578 18 Jan, 2017 Bipolar I disorder with duy F31.10 [facility] [id number] [place] [address] 54302- 8794 Jan, Bipolar 2 disorder F31.81 ; Chronic post-traumatic stress disorder (PTSD) F43.12 and Type 2 diabetes mellitus with hyperglycemia E11.65 [facility] [address] [place] [address] 07887- 8451 Jan, [facility] [id number] [place] [address] 00344- 6301 Jan, [facility] [address] [place] [address] 33869- 6198 14 Jan, 2017 Panic disorder with agoraphobia F40.01 [facility] [address] [place] [address] 05584- 2975 13 Jan, 2017 Panic disorder with agoraphobia F40.01 ; Bipolar I disorder with mood-congruent psychotic features F31.9 ; Chronic post-traumatic stress disorder (PTSD) F43.12 and Epilepsy G40.909 [facility] [address] [address]- 1524 Jan, [facility] [address] [place] [address] 12626- 1107 Jan, [facility] [id number] [place] [address] 50183- 8746 10 Jan, 2017 Type 2 diabetes mellitus without complications E11.9 and Hypoglycemia E16.2 [facility] [id number] [place] [address] 28773- 2306 07 Jan, 2017 Type 2 diabetes mellitus without complications E11.9 ; Primary insomnia F51.01 and Hypertension, benign I10 [facility] [id number] [place] [address] 36793- 4867 Jan, [facility] [id number] [place] [address] [id number] Jan, [facility] [id number] [place] [address] 96030- 2419 Dec, Type 2 diabetes mellitus with hyperglycemia E11.65 [facility] [id number] [place] [address] 72348- 4546 Dec, [facility] [id number] [place] [address] 01610- 6092 Dec, Bipolar 2 disorder F31.81 ; Panic disorder with agoraphobia F40.01 ; Chronic post-traumatic stress disorder (PTSD) F43.12 and Epilepsy G40.909 [facility] [address] [address]- 3081 Dec, [facility] [id number] [place] [address] 61150- 4911 14 Dec, 2016 [facility] [address] [address]- 8431 09 Dec, 2016 Bipolar 2 disorder F31.81 ; Panic disorder with agoraphobia F40.01 ; Chronic post-traumatic stress disorder (PTSD) F43.12 and Epilepsy G40.909 [facility] [id number] [place] [address] 90166- 9986 Dec, [facility] [id number] [place] [address] 01487- 2508 Dec, [facility] [id number] [place] [address] 43095- 8981 Dec, [facility] [address] 28141- 1140 Dec, Type 2 diabetes mellitus with hyperglycemia E11.65 ; human factors scientist 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 and Lumbago M54.5 [facility] [address] 75776- 5972 Dec, [facility] [address] [address]- [address] Dec, [place] [address] [place] [id number] [place] [address] 80421- 3292 Dec, [facility] [address] [place] [id number] [place] [address] -[address]59 Dec, Pain of left leg M79.605 and Pain in right leg M79.604 [place] [address] [place] [id number] [place] [address] 80200- 1490 Dec, [place] [address] [place] [id number] [place] [address] 00903- 4739 Dec, Type 2 diabetes mellitus with hyperglycemia E11.65 [place] [address] [place] [id number] [place] [address] 56748- 6272 Dec, [place] [address] [place] [id number] [place] [address] 60686- 2817 Dec, Type 2 diabetes mellitus with hyperglycemia E11.65 ; [facility] 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 ; Vagina, candidiasis B37.3 and Other chronic pain G89.29 [facility] [address] [place] [id number] [place] [address] 88[address]- 1966 Nov, Panic disorder with agoraphobia F40.01 [facility] [address] [place] [id number] [place] [address] 62051- 0552 Nov, [facility] [address] [place] [id number] [place] [address] 37667- 3898 Nov, [facility] [address] [place] [id number] [place] [address] 02455- 1837 Nov, Hypoglycemia E16.2 [place] [address] 94[address]- [address]206 Nov, [place] [address] [place] [id number] [place] [address] 79352- 1821 Nov, [facility] [id number] [place] [address] 88901- 1345 Nov, [facility] [id number] [place] [address] 40902- 1385 Nov, Type 2 diabetes mellitus with hyperglycemia E11.65 and human factors scientist 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 [facility] [id number] [place] [address] 93905- 6270 Nov, Panic disorder with agoraphobia F40.01 ; Bipolar 2 disorder F31.81 ; Chronic post-traumatic stress disorder (PTSD) F43.12 and Epilepsy G40.909 [facility] [address] [place] [address] 33980- 0303 Nov, Panic disorder with agoraphobia F40.01 [facility] [address] [id number] [place] [address] 45780- 7068 Oct, [facility] [id number] [place] [address] 00419- 0814 Oct, [facility] [id number] [place] [address] 25875- 7567 Oct, Bipolar 2 disorder F31.81 ; Panic disorder with agoraphobia F40.01 and Mood disorder F39 [facility] [address] 77674- 1818 Oct, Diabetes E11.9 ; Type 2 diabetes mellitus with hyperglycemia E11.65 and human factors scientist 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 [facility] [address] 09540- 6274 Oct, [facility] [address] 43648- 6374 Sep, [facility] [address] 65377- 8371 Sep, Bipolar 2 disorder F31.81 and Mood disorder F39 [facility] [address] 81141- 8131 Sep, [facility] [address] 01186- 9663 Sep, Uncontrolled type 2 diabetes mellitus without complication, without long-term current use of insulin E11.65 [facility] [address] 19024- 8866 Sep, [facility] [id number] [place] [address] 90055- 0572 Sep, [facility] [id number] [place] [address] 45561- 2345 Sep, [facility] [id number] [place] [address] 59619- 9722 Sep, [facility] [address] 62734- 3092 Sep, Bipolar 2 disorder F31.81 ; Chronic post-traumatic stress disorder (PTSD) F43.12 ; Panic disorder with agoraphobia F40.01 and Epilepsy G40.909 [facility] [id number] [place] [address] 26827- 6742 Sep, Bipolar 2 disorder F31.81 ; PTSD (post-traumatic stress disorder) F43.10 and Panic disorder with agoraphobia F40.01 [facility] [id number] [place] [address] 14351- 5158 07 Sep, 2016 [facility] [id number] [place] [address] 02437- 6687 28 Aug, 2016 History of seizures Z87.898 ; Panic disorder with agoraphobia F40.01 and Bipolar 2 disorder F31.81 [facility] [address] 18775- 3661 19 Aug, 2016 [facility] [address] 35464- 5833 17 Aug, 2016 [facility] [address] 49216- 9840 Aug, [facility] [address] 37934- 3765 Aug, [facility] [id number] [place] [address] 95954- 7547 Aug, [facility] [id number] [place] [address] 48716- 3432 Aug, [facility] [id number] [place] [address] 60803- 3964 Aug, Hypoglycemia E16.2 and Bilateral impacted cerumen H61.23 [facility] [id number] [place] [address] 05339- 8547 Aug, [facility] [address] 17774- 9558 21 Jul, 2016 [facility] [id number] [place] [address] 76853- 5126 21 Jul, 2016 [facility] [address] 03143- 3158 Jul, Bipolar 2 disorder F31.81 ; Panic disorder with agoraphobia F40.01 ; PTSD (post-traumatic stress disorder) F43.10 and Epilepsy G40.909 [facility] [id number] [place] [address] 80553- 8881 Jul, [facility] [id number] [place] [address] 83382- 2409 Jul, Type 2 diabetes mellitus without complications E11.9 and Coughing R05 [facility] [id number] [place] [address] 45030- 8329 Jul, [facility] [id number] [place] [address] 61766- 4825 Jun, [facility] [id number] [place] [address] 49792- 6746 Jun, Bipolar 2 disorder F31.81 ; PTSD (post-traumatic stress disorder) F43.10 and Panic disorder with agoraphobia F40.01 [facility] [id number] [place] [address] 55412- 9143 Jun, [facility] [id number] [place] [address] 83624- 9129 Jun, [facility] [id number] [place] [address] 87377- 0750 Jun, [facility] [id number] [place] [address] 12251- 6194 Jun, Type 2 diabetes mellitus without complications E11.9 and COPD (chronic obstructive pulmonary disease) J44.9 [facility] [address] [id number] [id number] May, Dental examination Z01.20 and Dental caries K02.9 [facility] [address] [place] [address] 63639- 3251 May, Bipolar 2 disorder F31.81 ; PTSD (post-traumatic stress disorder) F43.10 and Panic disorder with agoraphobia F40.01 [facility] [address] [address]- 5687 May, Lumbago with sciatica, right side M54.41 ; Other chronic pain G89.29 and Uncontrolled type 2 diabetes mellitus without complication, without long-term current use of insulin E11.65 [facility] [id number] [place] [address] 68258- 6900 May, Chronic bronchitis, unspecified chronic bronchitis type J42 [facility] [id number] [place] [address] 66523- 0600 May, [facility] [id number] [place] [address] 51333- 0806 May, [facility] [id number] [place] [address] 82083- 4535 May, Chest pain, unspecified type R07.9 ; Tobacco use Z72.0 ; Type 2 diabetes mellitus without complications E11.9 ; Essential hypertension I10 ; Hyperlipidemia, unspecified hyperlipidemia type E78.5 ; Obesity (BMI 30- 39.9) E66.9 ; History of hypothyroidism Z86.39 ; Chronic obstructive pulmonary disease, unspecified COPD type J44.9 ; Anxiety F41.9 ; Bilateral claudication of lower limb I73.9 and Bipolar 2 disorder F31.81 [facility] [id number] [place] [address] 79285- 9168 May, Bipolar 2 disorder F31.81 ; Panic disorder with agoraphobia F40.01 and Tobacco abuse Z72.0 [facility] [address] [place] [address] 07859- 5325 Apr, [facility] [address] [id number] [place] [address] 38428- 2622 Apr, [facility] [id number] [place] [address] 32138- 2350 Apr, [facility] [id number] [place] [address] 77627- 2536 Apr, Bipolar 2 disorder F31.81 ; Panic disorder with agoraphobia F40.01 and PTSD (post-traumatic stress disorder) F43.10 [facility] [address] 71114- 0111 Apr, Chronic bronchitis, unspecified chronic bronchitis type J42 ; Cervical neuritis M54.12 and Thoracic neuritis M54.[address] 78330- 0328 Apr, [facility] [address] 86779- 2297 15 Apr, 2016 Cervicalgia M54.[address] 89768- 1943 Apr, Bipolar 2 disorder F31.81 ; Panic disorder with agoraphobia F40.01 and PTSD (post-traumatic stress disorder) F43.10 [facility] [address] 81889 -5367 Apr, [facility] [address] 19835 -8219 09 Apr, 2016 Cough R05 and Tobacco dependence F17.[address] 23984- 2838 Apr, [address] 18382- 8128 Apr, [facility] [address] 04413- 9568 March, Bipolar 2 disorder F31.81 ; Panic disorder with agoraphobia F40.01 and Generalized anxiety disorder F41.[address] 03983- 6138 March, Closed displaced fracture of fifth metatarsal bone of right foot with routine healing, subsequent encounter S92.351D [facility] [address] 64962- 3125 March, Bronchitis J40 [facility] [address] [id number] [place] [address] 60274- 3500 March, [facility] [id number] [place] [address] 92885- 2126 March, [facility] [id number] [place] [address] 14396- 5701 March, Foot pain, right M79.671 ; Cervicalgia M54.2 and 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 mellitus without complication, unspecified competency evaluated nurse aide insulin use status E11.9 [facility] [address] [id number] [place] [address] 66748- 0997 March, Fracture of fifth metatarsal bone of right foot S92.351A [facility] [address] [id number] [place] [address] 75897- 7383 March, [facility] [id number] [place] [address] 47760- 5273 Jan, Fracture of fifth metatarsal bone of right foot S92.351A [facility] [id number] [place] [address] 19037- 4693 Jan, Bipolar 2 disorder F31.81 ; PTSD (post-traumatic stress disorder) F43.10 ; Panic disorder with agoraphobia F40.01 and Epilepsy G40.909 [facility] [address] [id number] [place] [address] 82563- 4131 Jan, History of WI (myocardial infarction) I25.2 and History of high cholesterol Z86.39 [facility] [id number] [place] [address] 38103- 1017 Jan, Bipolar 2 disorder F31.81 ; Panic disorder with agoraphobia F40.01 ; Tobacco abuse Z72.0 and PTSD (post-traumatic stress disorder) F43.10 [facility] [id number] [place] [address] 09395- 3088 Jan, Fracture of fifth metatarsal bone of right foot S92.351A [facility] [address] [place] [address] 25808- 6686 Jan, [facility] [address] [id number] [place] [address] 73829- 3996 Jan, History of high cholesterol Z86.39 [facility] [id number] [place] [address] 01044- 0855 Jan, History of [place] (myocardial infarction) I25.2 [facility] [id number] [place] [address] 72318- 6710 Jan, [facility] [id number] [place] [address] 54878- 9155 Dec, Back pain M54.9 ; Diabetes E11.9 ; Right knee pain M25.561 and Chest pain R07.9 [facility] [id number] [place] [address] 16757- 0728 Dec, [facility] [id number] [place] [address] 69739- 5487 Dec, [facility] [id number] [place] [address] 53568- 1708 Dec, Cervicalgia M54.2 [facility] [id number] [place] [address] 74740- 7247 Dec, Bipolar 2 disorder F31.81 ; PTSD (post-traumatic stress disorder) F43.10 ; Panic disorder with agoraphobia F40.01 and Epilepsy G40.909 [facility] [address] [place] [address] 65568- 9081 08 Jan, 2016 Bipolar 2 disorder F31.81 ; PTSD (post-traumatic stress disorder) F43.10 and Panic disorder with agoraphobia F40.01 [facility] [address] [place] [address] 41314- 2448 Dec, Diabetes E11.9 [facility] [address] [place] [address]- 8701 Dec, [facility] [id number] [place] [address] 09966- 3327 Dec, Other chronic pain G89.29 ; Hepatitis C B19.20 and History of seizures Z87.898 [facility] [id number] [place] [address] 57716- 2941 Dec, [facility] [id number] [place] [address] 58216- 5023 Dec, Bipolar 2 disorder F31.81 and Other chronic pain G89.29 [facility] [id number] [place] [address] 28392- 7822 Dec, Cervicalgia M54.2 and Diabetes E11.9 [facility] [id number] [place] [address] 23140- 9605 Dec, [facility] [id number] [place] [address] 88003- 2217 Dec, [facility] [id number] [place] [address] 96038- 1847 Dec, [facility] [id number] [place] [address] 12479- 9452 16 Dec, 2015 [facility] [id number] [place] [address] 17213- 6174 Dec, Type 2 diabetes mellitus without complications E11.9 [facility] [id number] [place] [address] 98805- 7766 10 Dec, 2015 [facility] [id number] [place] [address] 14805- 0238 09 Dec, 2015 History of seizures Z87.898 and Hepatitis C B19.20 [facility] [id number] [place] [address] 38258- 4550 08 Dec, 2015 Hepatitis C B19.20 [facility] [id number] [place] [address] 83599- 1658 04 Dec, 2015 [facility] [address] 70277- 7298 04 Dec, 2015 Cervicalgia M54.2 ; COPD (chronic obstructive pulmonary disease) J44.9 and Hepatitis C B19.[address] 90389- 7047 02 Dec, 2015 Bipolar 2 disorder F31.81 ; History of hypertension Z86.79 ; History of anxiety Z86.59 ; Panic disorder with agoraphobia F40.01 and Epilepsy G40.909 [facility] [address] 59511- 1463 Nov, [facility] [address] 36106- 6227 Nov, [address] 96033- 9794 Nov, History of seizures Z87.898 ; OAB (overactive bladder) N32.81 ; Lumbago M54.5 ; Other chronic pain G89.29 ; Cervicalgia M54.2 ; Tobacco abuse Z72.0 ; Tobacco abuse counseling Z71.6 and Impaired fasting glucose R73.01 [facility] [id number] [place] [address] 44983- 4996 Nov, Bipolar 2 disorder F31.81 ; PTSD (post-traumatic stress disorder) F43.10 ; History of anxiety Z86.59 ; History of COPD Z87.09 ; Panic disorder with agoraphobia F40.01 and Moderate depressed bipolar I disorder F31.32 [facility] [id number] [place] [address] 92908- 7359 12 Nov, 2015 PTSD (post-traumatic stress disorder) F43.10 [facility] [id number] [place] [address] [id number] 11 Nov, 2015 Dental examination Z01.20 and Dental caries K02.9 [facility] [address] [place] [address] 82604- 7018 08 Nov, 2015 History of hypertension Z86.79 ; History of hypothyroidism Z86.39 ; History of high cholesterol Z86.39 ; History of COPD Z87.09 and Overactive bladder N32.81 [facility] [id number] [place] [address] 97120- 2687 Nov, Bipolar 2 disorder F31.81 and PTSD (post-traumatic stress disorder) F43.10 [facility] [id number] [place] [address] 97998- 6468 Nov, PTSD (post-traumatic stress disorder) F43.10 ; Panic disorder with agoraphobia F40.01 ; Epilepsy G40.909 and Moderate depressed bipolar I disorder F31.32 [facility] [id number] [place] [address] 53853- 4052 Nov, [facility] [address] 88017- 6878 Nov, [facility] [id number] [place] [address] 45366- 5241 Oct, [facility] [id number] [place] [address] 37239- 0937 Oct, Generalized anxiety disorder F41.1 ; Major depression, recurrent F33.9 and PTSD (post-traumatic stress disorder) F43.10 [facility] [id number] [place] [address] 14448- 5033 Oct, Elevated fasting glucose R73.01 [facility] [id number] [place] [address] 57648- 8353 Oct, Elevated fasting glucose R73.01 [facility] [id number] [place] [address] 39321- 3361 17 Oct, 2015 History of COPD Z87.09 [facility] [id number] [place] [address] 70542- 0462 Oct, General medical exam Z00.00 ; History of hypertension Z86.79 ; History of hypothyroidism Z86.39 ; History of hepatitis Z86.19 ; History of high cholesterol Z86.39 and History of seizures Z87.898 [facility] [address] [address]- 9226 Oct, General medical exam Z00.00 ; History of hypertension Z86.79 ; History of hypothyroidism Z86.39 ; Bipolar 2 disorder F31.81 ; PTSD ( post-traumatic stress disorder) F43.10 ; History of hepatitis Z86.19 ; History of high cholesterol Z86.39 ; History of anxiety Z86.59 ; History of seizures Z87.898 ; History of [place] (myocardial infarction) I25.2 and History of COPD Z87.09 [facility] [address] [address]- 8957 Oct, Generalized anxiety disorder F41.1 ; Depression F32.9 and PTSD (post-traumatic stress disorder) F43.10 [facility] [address] [address]- 5105 Jan, [facility] [address] [address]- 6669 Jan, [facility] [address] [address]- 1841 Jun, [facility] [address] [place] [id number] Jun, [facility] [address] [address]- 2850 May, [facility] [address] [address] 2542 May, [facility] [address] [place] [id number] May, [facility] [address] [address]- 2546 May, [facility] [address] [place] [id number] May, [facility] [address] [facility] [id number] [place] [address]- 1515 May, IMMUNIZATIONS No Known Immunizations SOCIAL HISTORY Never Assessed REASON FOR VISIT referral request PLAN OF CARE VITAL SIGNS MEDICATIONS Unknown [...]
--- OUTSIDE RECORDS SUMMARY | 2019-01-26 07:14 | XMS REPORT ---
Author Author GERARDO KISER [facility] Address [address] [place] [address] Care Team Providers Care Mussel Opener Name Role Phone MARGI GERARDO Unavailable PROBLEMS Type Condition ICD9-CM Code NCT33-JS Code Onset Dates Condition Status SNOMED Code Problem OAB (overactive bladder) N32.81 Active 070872911 Problem Epilepsy G40.909 Active 70312592 Problem Cervicalgia M54.2 Active 30149458 Problem Other chronic pain G89.29 Active 06622212 Problem Tobacco abuse Z72.0 Active 94469488 Problem Lumbago M54.5 Active 618285103 Problem Hepatitis C B19.20 Active 82529015 Problem COPD (chronic obstructive pulmonary disease) J44.9 Active 87648306 Problem Diabetes E11.9 Active 09497104 Problem Bipolar I disorder with duy F31.10 Active 35892227 Problem Type 2 diabetes mellitus without complications E11.9 Active 304358613 Problem Stress incontinence of urine N39.3 Active 04119241 Problem Bilateral claudication of lower limb I73.9 Active 274752090 Problem Seasonal allergic rhinitis due to other allergic trigger J30.89 Active 097485407 Problem Hyperlipidemia, unspecified hyperlipidemia type E78.5 Active 91559361 Problem Hypertension, unspecified type I10 Active 80176164 Problem Chronic tension-type headache, not intractable G44.229 Active 311580805 Problem 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 mellitus without complication, without long -term current use of insulin E11.9 Active 410959602 Problem Type 2 diabetes mellitus with hyperglycemia E11.65 Active 843349100 Problem Chronic post-traumatic stress disorder (PTSD) F43.12 Active 714601035 Problem History of hypothyroidism Z86.39 Active 109783978 Problem Hypoglycemia E16.2 Active 027666356 Problem El's esophageal ulceration K22.10 Active 535075661 Problem Bipolar affective disorder, currently depressed, mild F31.31 Active 771977041 Problem Irritable bowel syndrome with diarrhea K58.0 Active 202126433 Problem Stress incontinence N39.3 Active 14264149 Problem History of hypertension Z86.79 Active 748925943 Problem Uncontrolled type 2 diabetes mellitus without complication, without long-term current use of insulin E11.65 Active 059908836 Problem Panic disorder with agoraphobia F40.01 Active 32777170 Problem Type 2 diabetes mellitus with hyperglycemia E11.65 Active 224949241 Problem History of seizures Z87.898 Active 069789175 Problem care home 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 Active 288259546 Problem History of CT (myocardial infarction) I25.2 Active 602731431 Problem Mood disorder F39 Active 26194704 Problem Bipolar 2 disorder F31.81 Active 98545079 Problem Gastritis and duodenitis K29.90 Active 722013532 Problem History of high cholesterol Z86.39 Active 323655645 Problem Bipolar I disorder with mood-congruent psychotic features F31.9 Active 923186375 Problem Hypertension, benign I10 Active 36117636 Problem Primary insomnia F51.01 Active 2265610 ALLERGIES No Information ENCOUNTERS Encounter Location Date Diagnosis [facility] [id number] [place] [address] 25331- 8906 Nov, [facility] [id number] [place] [address] 86638- 9334 Jul, [facility] [id number] [place] [address] 38055- 9087 Jul, [facility] [id number] [place] [address] 18146- 6282 Jul, [facility] [id number] [place] [address] 64786- 9107 13 Jul, 2018 Bipolar 2 disorder F31.81 ; Panic disorder with agoraphobia F40.01 and Chronic post-traumatic stress disorder (PTSD) F43.12 [facility] [id number] [place] [address] 89515- 3931 Jun, [facility] [id number] [place] [address] 11049- 2884 Jun, [facility] [address] [place] [address] 5[address] Jun, Lumbago M54.5 [facility] [id number] [place] [address] 34444- 2664 Jun, Type 2 diabetes mellitus with hyperglycemia E11.65 [facility] [id number] [place] [address] 06607- 4739 Jun, [facility] [id number] [place] [address] 37713- 8425 Jun, Type 2 diabetes mellitus with hyperglycemia E11.65 ; El 's esophageal ulceration K22.10 and Lumbago M54.5 [facility] [id number] [place] [address] 98673- 7592 Jun, Type 2 diabetes mellitus with hyperglycemia E11.65 [facility] [id number] [place] [address] 24906- 1431 Jun, [facility] [id number] [place] [address] 65494- 2136 Jun, [facility] [id number] [place] [address] 02550- 5262 Jun, Bipolar affective disorder, currently depressed, mild F31.31 ; Chronic post-traumatic stress disorder (PTSD) F43.12 and Panic disorder with agoraphobia F40.01 [facility] [id number] [place] [address] 73092- 8546 Jun, [facility] [id number] [place] [address] 02832- 8337 Jun, [facility] [id number] [place] [address] 86616- 5120 Jun, Type 2 diabetes mellitus with hyperglycemia E11.65 [facility] [id number] [place] [address] 84862- 0932 Jun, Uncontrolled type 2 diabetes mellitus with hyperglycemia E11.65 [facility] [id number] [place] [address] 70281- 7508 Jun, [facility] [address] [id number] [place] [address] 5387 May, Lumbago M54.5 [facility] [address] [id number] [place] [id number] May, [facility] [address] [facility] [id number] [place] [address]- 6306 May, [facility] [address] [facility] [id number] [place] [address] 2546 May, [facility] [address] [facility] [id number] [place] [address]- 0930 May, [facility] [address] [id number] [place] [address]- 3826 May, [facility] [address] [facility] [id number] [place] [address]- 4004 May, [facility] [address] [facility] [id number] [place] [address]- 5065 May, [facility] [address] [facility] [id number] [place] [address]- 3302 May, Lumbago M54.5 [facility] [address] [facility] [id number] [place] [address]- 9622 May, [facility] [address] [facility] [id number] [address] [address], [address] of the chest R93.8 [facility] [address] [facility] [id number] [place] [address]- 6602 Apr, Bipolar 2 disorder F31.81 ; Chronic post-traumatic stress disorder (PTSD) F43.12 and Panic disorder with agoraphobia F40.01 [facility] [address] [facility] [id number] [place] [address] [address] Apr, [address] of the chest R93.8 [facility] [id number] [place] [address] 61765- 5561 20 Apr, [address] of the chest R93.8 [facility] [address] 43689- 5698 Apr, [facility] [id number] [place] [address] 26666- 5079 Apr, Type 2 diabetes mellitus with hyperglycemia E11.65 [facility] [address] 97411- 5898 Apr, 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 mellitus without complication, without long-term current use of insulin E11.9 ; Watery eyes H04.203 ; Low back pain M54.5 ; Other chronic pain G89.29 ; Chronic tension-type headache, not intractable G44.229 ; Uncontrolled type 2 diabetes mellitus without complication , without long-term current use of insulin E11.65 and Bronchitis J40 [facility] [address] 44718- 4692 Apr, [facility] [id number] [place] [address] 35317- 0921 Apr, Lumbago M54.5 [facility] [id number] [place] [address] 23651- 0358 March, [facility] [id number] [place] [address] 71102 -4768 March, Cough R05 ; Pneumonia due to infectious organism, unspecified laterality, unspecified part of lung J18.9 and Non-intractable vomiting with nausea, unspecified vomiting type R11.2 [facility] [id number] [place] [address] 78653- 8283 March, Bronchitis J40 [facility] [id number] [place] [address] 30493- 2760 March, [facility] [id number] [place] [address] 67644- 0404 March, El's esophageal ulceration K22.10 and Type 2 diabetes mellitus with hyperglycemia E11.65 [facility] [id number] [place] [address] 56820- 4840 March, Panic disorder with agoraphobia F40.01 ; Chronic post- traumatic stress disorder (PTSD) F43.12 and Bipolar 2 disorder F31.81 [facility] [id number] [place] [address] 63425- 6652 March, Type 2 diabetes mellitus with hyperglycemia E11.65 [facility] [id number] [place] [address] 59278- 8299 March, [facility] [address] 25052- 9830 March, Lumbago M54.5 [facility] [id number] [place] [address] 36902- 8088 March, [facility] [id number] [place] [address] 08201- 3922 March, Irritable bowel syndrome with diarrhea K58.0 ; Primary insomnia F51.01 ; Type 2 diabetes mellitus with hyperglycemia E11.65 and care home 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 [facility] [id number] [place] [address] 77495- 6238 March, [facility] [id number] [address] 5103 Jan, [facility] [id number] [place] [address] 30490- 9455 Jan, [facility] [id number] [place] [address] 63442- 4889 Jan, [facility] [id number] [place] [address] 40291- 9728 Jan, [facility] [id number] [place] [address] 85939- 3811 Jan, Dizziness R42 [facility] [address] [place] [address] 7579 Jan, Bipolar affective disorder, currently depressed, mild F31.31 ; Panic disorder with agoraphobia F40.01 and Chronic post-traumatic stress disorder (PTSD) F43.12 [facility] [id number] [place] [address] 03642- 1215 Jan, Dizziness R42 [facility] [address] 24409- 0336 Jan, Chest pain, unspecified type R07.9 ; Exertional dyspnea R06.09 ; Hypertension, unspecified type I10 and Hyperlipidemia, unspecified hyperlipidemia type E78.5 [facility] [address] 49763- 2279 Jan, [facility] [id number] [place] [address] 95465- 1526 Jan, Lumbago M54.5 [facility] [id number] [place] [address] 70391- 2604 Jan, El's esophageal ulceration K22.10 ; Blister (nonthermal ) of oral cavity, initial encounter S00.522A ; Local infection of the skin and subcutaneous tissue, unspecified L08.9 ; Type 2 diabetes mellitus with hyperglycemia E11.65 ; 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 and Stress incontinence N39.3 [facility] [id number] [place] [address] 68409- 9543 Dec, [facility] [id number] [place] [address] 06420- 4584 Dec, [facility] [id number] [place] [address] 17953- 1262 Dec, [facility] [id number] [place] [address] [id number] Dec, Dental examination Z01.20 [facility] [id number] [place] [address] 15740- 0324 15 Dec, 2017 Acute pain of right knee M25.561 [facility] [id number] [place] [address] 97335- 0571 14 Dec, 2017 [facility] [id number] [place] [address] 96064- 9044 14 Dec, 2017 [facility] [id number] [place] [address] 96695- 6671 Dec, Lumbago M54.5 ; Acute pain of right knee M25.561 and Seasonal allergic rhinitis due to other allergic trigger J30.89 [facility] [id number] [place] [address] 21771- 7427 Dec, Type 2 diabetes mellitus with hyperglycemia E11.65 [facility] [id number] [place] [address] 43810- 4464 Dec, [facility] [id number] [place] [address] 50870- 5121 Dec, [facility] [id number] [place] [address] 90564- 8238 23 Dec, 2017 [facility] [id number] [place] [address] 26701- 8208 Dec, [facility] [id number] [place] [address] 05172- 8098 15 Dec, 2017 Chronic post-traumatic stress disorder (PTSD) F43.12 and Panic disorder with agoraphobia F40.01 [facility] [id number] [place] [address] 84075- 9154 13 Dec, 2017 Low back pain M54.5 [facility] [id number] [place] [address] 72127- 1063 12 Dec, 2017 Type 2 diabetes mellitus with hyperglycemia E11.65 ; care home 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 ; Low back pain M54.5 ; Other chronic pain G89.29 and Encounter for therapeutic drug level monitoring Z51.81 [facility] [id number] [place] [address] 67175- 0449 Dec, Coughing R05 [facility] [address] [address]- 8200 Dec, [facility] [address] [address] Dec, Dental examination Z01.20 [facility] [id number] [place] [address] 89348- 4838 Nov, Type 2 diabetes mellitus without complications E11.9 and Encounter for therapeutic drug level monitoring Z51.81 [facility] [id number] [place] [address] 53936- 7284 Nov, [facility] [id number] [place] [address] 77164- 5037 Oct, Type 2 diabetes mellitus without complications E11.9 [facility] [id number] [place] [address] 07916- 7418 Oct, Type 2 diabetes mellitus with hyperglycemia E11.65 [facility] [address] [place] [address] 88311- 7445 Aug, Type 2 diabetes mellitus without complications E11.9 [facility] [address] [place] [address] 10256- 3186 Aug, Type 2 diabetes mellitus without complications E11.9 ; Hypoglycemia E16.2 ; Lumbago M54.5 ; Stress incontinence of urine N39.[address] (myocardial infarction) I25.2 [facility] [address] [address]- 7056 Jun, [facility] [id number] [place] [address] 03348- 6800 May, [facility] [id number] [place] [address] 81973- 3483 Apr, Panic disorder with agoraphobia F40.01 [facility] [id number] [place] [address] 63950- 7426 Apr, Panic disorder with agoraphobia F40.01 [facility] [address] [place] [address] 01796- 5896 Apr, [facility] [id number] [place] [address] 02840- 5431 March, Other chronic pain G89.29 [facility] [id number] [place] [address] 49554- 0088 March, [facility] [id number] [place] [address] 82255- 9783 March, [facility] [id number] [place] [address] 24563- 0153 March, [facility] [id number] [place] [address] 30941- 4329 March, [facility] [id number] [place] [address] 26680- 5250 March, Type 2 diabetes mellitus without complications E11.9 [facility] [id number] [place] [address] 09176- 1807 March, Diarrhea, unspecified type R19.7 [facility] [address] [place] [address] 11540- 3662 March, Bipolar 2 disorder F31.81 ; Chronic post-traumatic stress disorder (PTSD) F43.12 and Type 2 diabetes mellitus with hyperglycemia E11.65 [facility] [address] [address]- 3846 March, [facility] [id number] [place] [address] 54466- 0245 March, [facility] [id number] [place] [address] 90897- 9503 March, Hypertension, benign I10 ; Type 2 diabetes mellitus with hyperglycemia E11.65 ; Hepatitis C B19.20 ; Gastritis and duodenitis K29.90 and Dysuria R30.0 [facility] [address] [address]- 8878 March, Hypertension, benign I10 ; Type 2 diabetes mellitus with hyperglycemia E11.65 ; Hepatitis C B19.20 ; Gastritis and duodenitis K29.90 and Dysuria R30.0 [facility] [id number] [place] [address] 22743- 8798 March, Panic disorder with agoraphobia F40.01 ; Chronic post- traumatic stress disorder (PTSD) F43.12 ; Epilepsy G40.909 and Bipolar I disorder with mood-congruent psychotic features F31.9 [facility] [id number] [place] [address] 10066- 3937 March, [facility] [id number] [place] [address] 94085- 0960 March, Type 2 diabetes mellitus with hyperglycemia E11.65 [facility] [id number] [place] [address] 91454- 2104 18 Jan, 2017 Bipolar I disorder with duy F31.10 [facility] [id number] [place] [address] 67030- 2431 Jan, Bipolar 2 disorder F31.81 ; Chronic post-traumatic stress disorder (PTSD) F43.12 and Type 2 diabetes mellitus with hyperglycemia E11.65 [facility] [address] [place] [address] 29146- 3932 Jan, [facility] [id number] [place] [address] 15871- 7612 Jan, [facility] [address] [place] [address] 48795- 2660 14 Jan, 2017 Panic disorder with agoraphobia F40.01 [facility] [address] [place] [address] 99243- 8754 13 Jan, 2017 Panic disorder with agoraphobia F40.01 ; Bipolar I disorder with mood-congruent psychotic features F31.9 ; Chronic post-traumatic stress disorder (PTSD) F43.12 and Epilepsy G40.909 [facility] [address] [address]- 3959 Jan, [facility] [id number] [place] [address] 70633- 4827 Jan, [facility] [id number] [place] [address] 68277- 3219 10 Jan, 2017 Type 2 diabetes mellitus without complications E11.9 and Hypoglycemia E16.2 [facility] [id number] [place] [address] 73859- 0259 07 Jan, 2017 Type 2 diabetes mellitus without complications E11.9 ; Primary insomnia F51.01 and Hypertension, benign I10 [facility] [id number] [place] [address] 96303- 2266 Jan, [facility] [id number] [place] [address] [id number] Jan, [facility] [id number] [place] [address] 38447- 7154 Dec, Type 2 diabetes mellitus with hyperglycemia E11.65 [facility] [id number] [place] [address] 04896- 5584 Dec, [facility] [id number] [place] [address] 44012- 5715 Dec, Bipolar 2 disorder F31.81 ; Panic disorder with agoraphobia F40.01 ; Chronic post-traumatic stress disorder (PTSD) F43.12 and Epilepsy G40.909 [facility] [address] [address]- 2453 Dec, [facility] [id number] [place] [address] 89979- 7696 14 Dec, 2016 [facility] [address] [address]- 4060 09 Dec, 2016 Bipolar 2 disorder F31.81 ; Panic disorder with agoraphobia F40.01 ; Chronic post-traumatic stress disorder (PTSD) F43.12 and Epilepsy G40.909 [facility] [id number] [place] [address] 23752- 0877 Dec, [facility] [id number] [place] [address] 51430- 5245 Dec, [facility] [id number] [place] [address] 60283- 1057 Dec, [facility] [address] 57971- 5303 Dec, Type 2 diabetes mellitus with hyperglycemia E11.65 ; 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 and Lumbago M54.5 [facility] [address] 08651- 6255 Dec, [facility] [address] 19661- 6410 Dec, [facility] [id number] [place] [address] 41927- 5543 Dec, [facility] [id number] [place] [address] 64219 -6326 Dec, Pain of left leg M79.605 and Pain in right leg M79.604 [facility] [id number] [place] [address] 15674- 6264 Dec, [facility] [id number] [place] [address] 78359- 7623 Dec, Type 2 diabetes mellitus with hyperglycemia E11.65 [facility] [id number] [place] [address] 73129- 3457 Dec, [facility] [id number] [place] [address] 06150- 3982 Dec, Type 2 diabetes mellitus with hyperglycemia E11.65 ; care home 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 ; Vagina, candidiasis B37.3 and Other chronic pain G89.29 [facility] [id number] [place] [address] 25494- 6616 Nov, Panic disorder with agoraphobia F40.01 [facility] [id number] [place] [address] 61689- 8983 Nov, [facility] [id number] [place] [address] 49692- 4210 Nov, [facility] [id number] [place] [address] 15589- 5812 Nov, Hypoglycemia E16.2 [facility] [address] 04531- 7888 Nov, [facility] [id number] [place] [address] 28869- 2466 Nov, [facility] [id number] [place] [address] 61778- 9962 Nov, [facility] [id number] [place] [address] 16893- 5412 Nov, Type 2 diabetes mellitus with hyperglycemia E11.65 and 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 [facility] [id number] [place] [address] 84821- 2968 Nov, Panic disorder with agoraphobia F40.01 ; Bipolar 2 disorder F31.81 ; Chronic post-traumatic stress disorder (PTSD) F43.12 and Epilepsy G40.909 [facility] [id number] [place] [phone] Nov, Panic disorder with agoraphobia F40.01 [place] [address] [place] [id number] [place] [phone] Oct, [place] [address] [id number] [place] [id number] Oct, [place] [address] [place] [id number] [place] [address] [id number] Oct, Bipolar 2 disorder F31.81 ; Panic disorder with agoraphobia F40.01 and Mood disorder F39 [facility] [address] [phone] Oct, Diabetes E11.9 ; Type 2 diabetes mellitus with hyperglycemia E11.65 and 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 [facility] [address] 97273- 5148 Oct, [facility] [address] 99989- 9913 Sep, [facility] [address] 28011- 9268 Sep, Bipolar 2 disorder F31.81 and Mood disorder F39 [place] [address] 46044- 3525 Sep, [facility] [address] 87311- 5435 Sep, Uncontrolled type 2 diabetes mellitus without complication, without long-term current use of insulin E11.65 [place] [address] 56351- 7481 Sep, [place] [address] [place] [id number] [place] [address] 56483- 0365 Sep, [facility] [id number] [place] [address] 04143- 7654 Sep, [facility] [id number] [place] [address] 36907- 0660 Sep, [place] [address] 60031- 9357 Sep, Bipolar 2 disorder F31.81 ; Chronic post-traumatic stress disorder (PTSD) F43.12 ; Panic disorder with agoraphobia F40.01 and Epilepsy G40.909 [facility] [id number] [place] [address] 42534- 9579 Sep, Bipolar 2 disorder F31.81 ; PTSD (post-traumatic stress disorder) F43.10 and Panic disorder with agoraphobia F40.01 [facility] [id number] [place] [address] 33914- 8328 07 Sep, 2016 [facility] [id number] [place] [address] 51503- 2422 28 Aug, 2016 History of seizures Z87.898 ; Panic disorder with agoraphobia F40.01 and Bipolar 2 disorder F31.81 [facility] [address] 68998- 4719 19 Aug, 2016 [facility] [address] 47370- 0235 17 Aug, 2016 [facility] [address] 20003- 5100 Aug, [facility] [address] 73709- 5260 Aug, [facility] [id number] [place] [address] 83296- 3523 Aug, [facility] [id number] [place] [address] 54903- 6110 Aug, [facility] [id number] [place] [address] 55882- 3981 Aug, Hypoglycemia E16.2 and Bilateral impacted cerumen H61.23 [facility] [id number] [place] [address] 04026- 5182 Aug, [facility] [address] 61006- 9088 21 Jul, 2016 [facility] [id number] [place] [address] 95808- 7315 21 Jul, 2016 [facility] [address] 40832- 6526 Jul, Bipolar 2 disorder F31.81 ; Panic disorder with agoraphobia F40.01 ; PTSD (post-traumatic stress disorder) F43.10 and Epilepsy G40.909 [facility] [id number] [place] [address] 50697- 9649 Jul, [facility] [id number] [place] [address] 20107- 6762 Jul, Type 2 diabetes mellitus without complications E11.9 and Coughing R05 [facility] [id number] [place] [address] 29166- 6878 Jul, [facility] [id number] [place] [address] 11019- 9385 Jun, [facility] [id number] [place] [address] 33988- 3693 Jun, Bipolar 2 disorder F31.81 ; PTSD (post-traumatic stress disorder) F43.10 and Panic disorder with agoraphobia F40.01 [facility] [id number] [place] [address] 12635- 6538 Jun, [facility] [id number] [place] [address] 28406- 7147 Jun, [facility] [id number] [place] [address] 94724- 6748 Jun, [facility] [id number] [place] [address] 58519- 7498 Jun, Type 2 diabetes mellitus without complications E11.9 and COPD (chronic obstructive pulmonary disease) J44.9 [facility] [address] [id number] [id number] May, Dental examination Z01.20 and Dental caries K02.9 [facility] [id number] [place] [address] 32142- 4212 May, Bipolar 2 disorder F31.81 ; PTSD (post-traumatic stress disorder) F43.10 and Panic disorder with agoraphobia F40.01 [place] [address] [address] May, Lumbago with sciatica, right side M54.41 ; Other chronic pain G89.29 and Uncontrolled type 2 diabetes mellitus without complication, without long-term current use of insulin E11.65 [place] [address] [id number] [place] [address] 55030- 2051 May, Chronic bronchitis, unspecified chronic bronchitis type J42 [place] [address] [id number] [place] [address] 46887- 2430 May, [place] [address] [id number] [place] [address] 74841- 4295 May, [place] [address] [id number] [place] [address] 12762- 7119 May, Chest pain, unspecified type R07.9 ; Tobacco use Z72.0 ; Type 2 diabetes mellitus without complications E11.9 ; Essential hypertension I10 ; Hyperlipidemia, unspecified hyperlipidemia type E78.5 ; Obesity (BMI 30- 39.9) E66.9 ; History of hypothyroidism Z86.39 ; Chronic obstructive pulmonary disease, unspecified COPD type J44.9 ; Anxiety F41.9 ; Bilateral claudication of lower limb I73.9 and Bipolar 2 disorder F31.81 [place] [address] [id number] [place] [address] 60044- 4580 May, Bipolar 2 disorder F31.81 ; Panic disorder with agoraphobia F40.01 and Tobacco abuse Z72.0 [place] [id number] [place] [address] 18463- 6652 Apr, [place] [address] [place] [id number] [place] [address] 46481- 4924 Apr, [place] [address] [id number] [place] [address] 33741- 7629 Apr, [place] [address] [id number] [place] [address] 19005- 3226 Apr, Bipolar 2 disorder F31.81 ; Panic disorder with agoraphobia F40.01 and PTSD (post-traumatic stress disorder) F43.10 [place] [address] 49558- 8332 Apr, Chronic bronchitis, unspecified chronic bronchitis type J42 ; Cervical neuritis M54.12 and Thoracic neuritis M54.[address] 84721- 7727 Apr, [place] [address] 13405- 5081 15 Apr, 2016 Cervicalgia M54.[address] 97424- 3421 Apr, Bipolar 2 disorder F31.81 ; Panic disorder with agoraphobia F40.01 and PTSD (post-traumatic stress disorder) F43.10 [facility] [address] 35226 -6547 Apr, [facility] [address] 50430 -7074 09 Apr, 2016 Cough R05 and Tobacco dependence F17.[address] 81964- 3824 Apr, [address] 14364- 7426 Apr, [place] [address] 20584- 5076 March, Bipolar 2 disorder F31.81 ; Panic disorder with agoraphobia F40.01 and Generalized anxiety disorder F41.[address] 52916- 1792 March, Closed displaced fracture of fifth metatarsal bone of right foot with routine healing, subsequent encounter S92.351D [place] [address] 53934- 2679 March, Bronchitis J40 [place] [address] [place] [id number] [place] [address] 56565- 6988 March, [place] [address] [place] [id number] [place] [address] 76437- 1460 March, [place] [address] [id number] [place] [address] 87185- 8851 March, Foot pain, right M79.671 ; Cervicalgia M54.2 and 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 mellitus without complication, 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 [place] [address] [place] [id number] [place] [address] 33952- 9758 March, Fracture of fifth metatarsal bone of right foot S92.351A [place] [address] [place] [id number] [place] [address] 66731- 8603 March, [place] [address] [place] [id number] [place] [address] 23727- 0554 Jan, Fracture of fifth metatarsal bone of right foot S92.351A [place] [address] [place] [id number] [place] [address] 91521- 7143 Jan, Bipolar 2 disorder F31.81 ; PTSD (post-traumatic stress disorder) F43.10 ; Panic disorder with agoraphobia F40.01 and Epilepsy G40.909 [place] [address] [place] [id number] [place] [address] 39413- 7618 Jan, [address] of [address] (myocardial infarction) I25.2 and History of high cholesterol Z86.39 [place] [address] [place] [id number] [place] [address] 37036- 7221 Jan, Bipolar 2 disorder F31.81 ; Panic disorder with agoraphobia F40.01 ; Tobacco abuse Z72.0 and PTSD (post-traumatic stress disorder) F43.10 [place] [address] [place] [id number] [place] [address] 51740- 1271 Jan, Fracture of fifth metatarsal bone of right foot S92.351A [place] [id number] [place] [address] 07059- 5619 Jan, [place] [address] [place] [id number] [place] [address] 75189- 4841 Jan, History of high cholesterol Z86.39 [place] [address] [place] [id number] [place] [address] 15351- 8410 Jan, [address] of [address] (myocardial infarction) I25.2 [place] [address] [id number] [place] [address] 09950- 1765 Jan, [place] [address] [place] [id number] [place] [address] 66640- 8470 Dec, Back pain M54.9 ; Diabetes E11.9 ; Right knee pain M25.561 and Chest pain R07.9 [place] [address] [place] [id number] [place] [address] 26953- 0761 Dec, [place] [address] [place] [id number] [place] [address] 70878- 3543 Dec, [place] [address] [id number] [place] [address] 16243- 0158 Dec, Cervicalgia M54.2 [place] [address] [id number] [place] [address] 78947- 3951 Dec, Bipolar 2 disorder F31.81 ; PTSD (post-traumatic stress disorder) F43.10 ; Panic disorder with agoraphobia F40.01 and Epilepsy G40.909 [place] [id number] [place] [address] 40559- 8542 08 Jan, 2016 Bipolar 2 disorder F31.81 ; PTSD (post-traumatic stress disorder) F43.10 and Panic disorder with agoraphobia F40.01 [place] [id number] [place] [address] 65241- 4198 Dec, Diabetes E11.9 [place] [address] [place] [address]- 8644 Dec, [facility] [address] [place] [id number] [place] [address] 84407- 0778 Dec, Other chronic pain G89.29 ; Hepatitis C B19.20 and History of seizures Z87.898 [facility] [address] [id number] [place] [address] 59168- 0738 Dec, [facility] [id number] [place] [address] 27379- 5852 Dec, Bipolar 2 disorder F31.81 and Other chronic pain G89.29 [facility] [address] [id number] [place] [address] 21695- 2524 Dec, Cervicalgia M54.2 and Diabetes E11.9 [facility] [address] [id number] [place] [address] 51927- 6847 Dec, [facility] [address] [id number] [place] [address] 47819- 2367 Dec, [facility] [address] [id number] [place] [address] 54072- 0693 Dec, [facility] [id number] [place] [address] 69752- 1171 16 Dec, 2015 [facility] [id number] [place] [address] 88691- 5475 Dec, Type 2 diabetes mellitus without complications E11.9 [facility] [address] [id number] [place] [address] 73811- 6293 10 Dec, 2015 [facility] [address] [id number] [place] [address] 41457- 5084 09 Dec, 2015 History of seizures Z87.898 and Hepatitis C B19.20 [facility] [address] [id number] [place] [address] 75342- 0169 08 Dec, 2015 Hepatitis C B19.20 [facility] [id number] [place] [address] 45473- 1301 04 Dec, 2015 [place] [address] 21043- 0054 04 Dec, 2015 Cervicalgia M54.2 ; COPD (chronic obstructive pulmonary disease) J44.9 and Hepatitis C B19.[address] 68355- 1075 02 Dec, 2015 Bipolar 2 disorder F31.81 ; History of hypertension Z86.79 ; History of anxiety Z86.59 ; Panic disorder with agoraphobia F40.01 and Epilepsy G40.909 [place] [address] 14188- 9341 Nov, [place] [address] 05274- 1939 Nov, [address] 19795- 2759 Nov, History of seizures Z87.898 ; OAB (overactive bladder) N32.81 ; Lumbago M54.5 ; Other chronic pain G89.29 ; Cervicalgia M54.2 ; Tobacco abuse Z72.0 ; Tobacco abuse counseling Z71.6 and Impaired fasting glucose R73.01 [place] [address] [place] [id number] [place] [address] 67385- 6708 Nov, Bipolar 2 disorder F31.81 ; PTSD (post-traumatic stress disorder) F43.10 ; History of anxiety Z86.59 ; History of COPD Z87.09 ; Panic disorder with agoraphobia F40.01 and Moderate depressed bipolar I disorder F31.32 [place] [address] [place] [id number] [place] [address] 75718- 6006 12 Nov, 2015 PTSD (post-traumatic stress disorder) F43.10 [facility] [id number] [place] [address] [id number] 11 Nov, 2015 Dental examination Z01.20 and Dental caries K02.9 [place] [address] [place] [address] 40769- 4099 08 Nov, 2015 History of hypertension Z86.79 ; History of hypothyroidism Z86.39 ; History of high cholesterol Z86.39 ; History of COPD Z87.09 and Overactive bladder N32.81 [place] [address] [place] [id number] [place] [address] 86033- 2495 Nov, Bipolar 2 disorder F31.81 and PTSD (post-traumatic stress disorder) F43.10 [place] [address] [place] [id number] [place] [address] 47440- 5491 Nov, PTSD (post-traumatic stress disorder) F43.10 ; Panic disorder with agoraphobia F40.01 ; Epilepsy G40.909 and Moderate depressed bipolar I disorder F31.32 [place] [address] [id number] [place] [address] 85362- 2240 Nov, [place] [address] 71991- 4507 Nov, [place] [address] [place] [id number] [place] [address] 06981- 6973 Oct, [place] [address] [place] [id number] [place] [address] 25241- 1798 Oct, Generalized anxiety disorder F41.1 ; Major depression, recurrent F33.9 and PTSD (post-traumatic stress disorder) F43.10 [place] [address] [place] [id number] [place] [address] 90387- 2795 Oct, Elevated fasting glucose R73.01 [place] [address] [place] [id number] [place] [address] 95216- 9376 Oct, Elevated fasting glucose R73.01 [place] [address] [place] [id number] [place] [address] 75732- 5137 17 Oct, 2015 History of COPD Z87.09 [place] [address] [place] [id number] [place] [address] 02054- 3723 Oct, General medical exam Z00.00 ; History of hypertension Z86.79 ; History of hypothyroidism Z86.39 ; History of hepatitis Z86.19 ; History of high cholesterol Z86.39 and History of seizures Z87.898 [facility] [address] [address]- 7604 Oct, General medical exam Z00.00 ; History of hypertension Z86.79 ; History of hypothyroidism Z86.39 ; Bipolar 2 disorder F31.81 ; PTSD ( post-traumatic stress disorder) F43.10 ; History of hepatitis Z86.19 ; History of high cholesterol Z86.39 ; History of anxiety Z86.59 ; History of seizures Z87.898 ; History of CT (myocardial infarction) I25.2 and History of COPD Z87.09 [facility] [address] [address]- 6092 Oct, Generalized anxiety disorder F41.1 ; Depression F32.9 and PTSD (post-traumatic stress disorder) F43.10 [facility] [address] [address]- 4746 Jan, [facility] [address] [address]- 1237 Jan, [facility] [address] [address]- 5159 Jun, [facility] [address] [place] [id number] Jun, [facility] [address] [address]- 7638 May, [facility] [address] [address] 2545 May, [facility] [address] [place] [id number] May, [facility] [address] [address]- 2546 May, [place] [address] [place] [id number] May, [facility] [address] [facility] [id number] [place] [address]- 0643 May, IMMUNIZATIONS No Known Immunizations SOCIAL HISTORY Never Assessed REASON FOR VISIT medication clarification PLAN OF CARE VITAL SIGNS MEDICATIONS Medication Instructions Dosage Frequency Start Date End Date Duration Status [place] 10-325 MG Orally 3 times a day 1 tablet as needed 8h Jun, 28 days Active RESULTS No Results PROCEDURES [...]
--- OUTSIDE RECORDS SUMMARY | 2019-01-26 07:14 | XMS REPORT ---
Author Author FRANK LUNA Organization [facility], [place] Address [address] [place] [address] Care Team Providers Care Design Engineering Specialist Name Role Phone FRANK LUNA Unavailable PROBLEMS Type Condition ICD9-CM Code [id number] Code Onset Dates Condition Status SNOMED Code Problem OAB (overactive bladder) N32.81 Active 578742200 Problem Epilepsy G40.909 Active 27998529 Problem Cervicalgia M54.2 Active 72070184 Problem Other chronic pain G89.29 Active 06693525 Problem Tobacco abuse Z72.0 Active 34751906 Problem Lumbago M54.5 Active 541619960 Problem Hepatitis C B19.20 Active 91269034 Problem COPD (chronic obstructive pulmonary disease) J44.9 Active 59041956 Problem Diabetes E11.9 Active 16336457 Problem Bipolar I disorder with duy F31.10 Active 57081812 Problem Type 2 diabetes mellitus without complications E11.9 Active 844425043 Problem Stress incontinence of urine N39.3 Active 99444655 Problem Bilateral claudication of lower limb I73.9 Active 364645784 Problem Seasonal allergic rhinitis due to other allergic trigger J30.89 Active 945383064 Problem Hyperlipidemia, unspecified hyperlipidemia type E78.5 Active 43415553 Problem Hypertension, unspecified type I10 Active 40427036 Problem Chronic tension-type headache, not intractable G44.229 Active 458618705 Problem 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 mellitus without complication, without long -term current use of insulin E11.9 Active 185393037 Problem Type 2 diabetes mellitus with hyperglycemia E11.65 Active 250746686 Problem Chronic post-traumatic stress disorder (PTSD) F43.12 Active 420284001 Problem History of hypothyroidism Z86.39 Active 879412827 Problem Hypoglycemia E16.2 Active 558805978 Problem El's esophageal ulceration K22.10 Active 168808664 Problem Bipolar affective disorder, currently depressed, mild F31.31 Active 094686116 Problem Irritable bowel syndrome with diarrhea K58.0 Active 065897514 Problem Stress incontinence N39.3 Active 68497148 Problem History of hypertension Z86.79 Active 933902019 Problem Uncontrolled type 2 diabetes mellitus without complication, without long-term current use of insulin E11.65 Active 062866770 Problem Panic disorder with agoraphobia F40.01 Active 14087096 Problem Type 2 diabetes mellitus with hyperglycemia E11.65 Active 760253394 Problem History of seizures Z87.898 Active 495914475 Problem prison 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 Active 957927811 Problem History of MN (myocardial infarction) I25.2 Active 396796695 Problem Mood disorder F39 Active 05750417 Problem Bipolar 2 disorder F31.81 Active 12586075 Problem Gastritis and duodenitis K29.90 Active 352997232 Problem History of high cholesterol Z86.39 Active 096795443 Problem Bipolar I disorder with mood-congruent psychotic features F31.9 Active 027692570 Problem Hypertension, benign I10 Active 02061642 Problem Primary insomnia F51.01 Active 6209369 ALLERGIES No Information ENCOUNTERS Encounter Location Date Diagnosis [place] [address] [address] Nov, [facility], [place] [address] [address] Jul, [facility], [place] [address] [place] [id number] [place] [address] 34963- 1223 Jul, [facility], [place] [address] [place] [id number] [place] [address] 40604- 6164 Jul, [facility] [place] [address] 301[address]- 9769 13 Jul, 2018 Bipolar 2 disorder F31.81 ; Panic disorder with agoraphobia F40.01 and Chronic post-traumatic stress disorder (PTSD) F43.12 [facility], [place] [address] 40616- 8444 Jun, [facility], [place] [address] 88752- 6997 Jun, [facility], [place] [address] [address] 0[address] Jun, Lumbago M54.5 [facility], [place] [address] [place] [id number] [place] [address] 06663- 1095 Jun, Type 2 diabetes mellitus with hyperglycemia E11.65 [facility], [place] [address] [place] [id number] [place] [address] 49113- 1997 Jun, [facility], [place] [address] [place] [id number] [place] [address] 90367- 1010 Jun, Type 2 diabetes mellitus with hyperglycemia E11.65 ; El 's esophageal ulceration K22.10 and Lumbago M54.5 [place] [address] [place] [id number] [place] [address] 45899- 4416 Jun, Type 2 diabetes mellitus with hyperglycemia E11.65 [place] [address] [place] [id number] [place] [address] 75765- 5665 Jun, [place] [address] [place] [id number] [place] [address] 69789- 8437 Jun, [place] [address] [place] [id number] [place] [address] 22916- 3893 Jun, Bipolar affective disorder, currently depressed, mild F31.31 ; Chronic post-traumatic stress disorder (PTSD) F43.12 and Panic disorder with agoraphobia F40.01 [place] [address] [place] [id number] [place] [address] 74790- 5434 Jun, [place] [address] [place] [id number] [place] [address] 57124- 7101 Jun, [place] [address] [place] [id number] [place] [address] 71527- 1491 Jun, Type 2 diabetes mellitus with hyperglycemia E11.65 [facility], [place] [address] [place] [address] 80496- 1391 Jun, Uncontrolled type 2 diabetes mellitus with hyperglycemia E11.65 [place] [address] [place] [id number] [place] [address] Jun, [facility] [address] [facility] [id number] [place] [address] 4[address] May, Lumbago M54.5 [facility] [address] [id number] [place] [id number] May, [facility] [address] [facility] [id number] [place] [address]- 7766 May, [facility] [address] [facility] [id number] [place] [address]- 3795 May, [facility] [address] [facility] [id number] [place] [address]- 5845 May, [facility] [address] [facility] [id number] [place] [address]- 0296 May, [facility] [address] [place] [id number] [place] [address] 2986 May, [facility] [address] [facility] [id number] [place] [address]- 5730 May, [facility] [address] [facility] [id number] [place] [address]- 9988 May, Lumbago M54.5 [facility], [place] [address] [facility] [id number] [place] [address]- 4937 May, [facility] [address] [place] [id number] [address] [address], [address] of the chest R93.8 [facility], [place] [address] [facility] [id number] [address] 6[address] Apr, Bipolar 2 disorder F31.81 ; Chronic post-traumatic stress disorder (PTSD) F43.12 and Panic disorder with agoraphobia F40.01 [facility] [place] [address] [facility] [id number] [place] [address]- [address], [address] of the chest R93.8 [place] [address] [place] [id number] [place] [address] 08811- 8179 20 Apr, [address] of the chest R93.8 [place] [address] 41124- 2756 14 Apr, 2018 [place] [address] 6[address]25- 7310 Apr, Type 2 diabetes mellitus with hyperglycemia E11.65 [place] [address] 9[address]80- 7468 Apr, 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 mellitus without complication, without long-term current use of insulin E11.9 ; Watery eyes H04.203 ; Low back pain M54.5 ; Other chronic pain G89.29 ; Chronic tension-type headache, not intractable G44.229 ; Uncontrolled type 2 diabetes mellitus without complication , without long-term current use of insulin E11.65 and Bronchitis J40 [place] [address] 8[address]39- 5327 Apr, [place] [address] 94004- 0377 Apr, Lumbago M54.5 [place] [address] 36112- 9315 March, [facility] [address] [place] [id number] [place] [address] 67319 -7301 March, Cough R05 ; Pneumonia due to infectious organism, unspecified laterality, unspecified part of lung J18.9 and Non-intractable vomiting with nausea, unspecified vomiting type R11.2 [place] [address] [address]- [address] March, Bronchitis J40 [place] [address] [place] [id number] [place] [address] 43573- 7868 March, [place] [address] [place] [id number] [place] [address] 94815- 4805 March, El's esophageal ulceration K22.10 and Type 2 diabetes mellitus with hyperglycemia E11.65 [facility], [place] [address] [address] 9514 March, Panic disorder with agoraphobia F40.01 ; Chronic post- traumatic stress disorder (PTSD) F43.12 and Bipolar 2 disorder F31.81 [facility], [place] [address] [place] [id number] [place] [address] 39110- 1840 March, Type 2 diabetes mellitus with hyperglycemia E11.65 [facility], [place] [address] [place] [id number] [place] [address] 17029- 4745 March, [place] [address] [place] [id number] [place] [address] 07264- 8885 March, Lumbago M54.5 [place] [address] [place] [id number] [place] [address] 92765- 0317 March, [facility], [place] [address] [place] [id number] [place] [address] 66709- 0376 March, Irritable bowel syndrome with diarrhea K58.0 ; Primary insomnia F51.01 ; Type 2 diabetes mellitus with hyperglycemia E11.65 and prison 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 [facility], [place] [address] [place] [address] 11794- 5187 March, [facility], [place] [address] [address]- 1628 Jan, [facility], [place] [address] [place] [id number] [place] [address] 23425- 5842 Jan, [facility], [place] [address] [place] [id number] [address]- 6627 Jan, [facility], [place] [address] [place] [id number] [place] [address] 30132- 4659 Jan, [facility], [place] [address] [address]- 4478 Jan, Dizziness R42 [facility], [place] [address] [place] [id number] [place] [address] 13388- 4018 Jan, Bipolar affective disorder, currently depressed, mild F31.31 ; Panic disorder with agoraphobia F40.01 and Chronic post-traumatic stress disorder (PTSD) F43.12 [place] [address] [place] [id number] [place] [address] 03802- 7963 Jan, Dizziness R42 [address] [address]73- 7396 Jan, Chest pain, unspecified type R07.9 ; Exertional dyspnea R06.09 ; Hypertension, unspecified type I10 and Hyperlipidemia, unspecified hyperlipidemia type E78.[address] [address]- 2021 Jan, [address] 74250- 1387 Jan, Lumbago M54.5 [place] [id number] [place] [address] 86936- 9177 Jan, El's esophageal ulceration K22.10 ; Blister (nonthermal ) of oral cavity, initial encounter S00.522A ; Local infection of the skin and subcutaneous tissue, unspecified L08.9 ; Type 2 diabetes mellitus with hyperglycemia E11.65 ; prison 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 and Stress incontinence N39.3 [place] [id number] [place] [address] 71213- 1635 Dec, [place] [id number] [place] [address] 21768- 7205 Dec, [place] [id number] [place] [address] 80363- 7630 Dec, [facility] [address] [place] [address] [id number] Dec, Dental examination Z01.20 [place] [id number] [place] [address] 37820- 8881 Dec, Acute pain of right knee M25.561 [facility], [place] [address] [place] [id number] [address]- 7700 14 Dec, 2017 [facility], [place] [address] [place] [id number] [place] [address] 48816- 5687 14 Dec, 2017 [facility] [place] [address] [place] [id number] [place] [address] 22803- 4539 Dec, Lumbago M54.5 ; Acute pain of right knee M25.561 and Seasonal allergic rhinitis due to other allergic trigger J30.89 [place] [address] [place] [id number] [place] [address] 93997- 8622 Dec, Type 2 diabetes mellitus with hyperglycemia E11.65 [place] [address] [place] [id number] [place] [address] 38072- 4447 08 Dec, 2017 [place] [address] [place] [id number] [place] [address] 12066- 2234 08 Dec, 2017 [place] [address] [place] [address] 37460- 4823 23 Dec, 2017 [place] [address] [place] [id number] [place] [address] 27760- 0385 15 Dec, 2017 [place] [address] [place] [id number] [place] [address] 65167- 8996 15 Dec, 2017 Chronic post-traumatic stress disorder (PTSD) F43.12 and Panic disorder with agoraphobia F40.01 [place] [address] [place] [address] 16434- 0561 13 Dec, 2017 Low back pain M54.5 [place] [address] [place] [id number] [place] [address] 67556- 8071 12 Dec, 2017 Type 2 diabetes mellitus with hyperglycemia E11.65 ; 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 ; Low back pain M54.5 ; Other chronic pain G89.29 and Encounter for therapeutic drug level monitoring Z51.81 [place] [address] [place] [address]- 6487 Dec, Coughing R05 [facility], [place] [address] [place] [id number] [place] [address] 44964- 8704 Dec, [facility] [address] [place] [id number] [place] [address] [id number] Dec, Dental examination Z01.20 [facility] [place] [address] [place] [id number] [place] [address] 74835- 3708 Nov, Type 2 diabetes mellitus without complications E11.9 and Encounter for therapeutic drug level monitoring Z51.81 [facility], [place] [address] [place] [id number] [place] [address] 37408- 4935 Nov, [facility] [place] [address] [place] [id number] [place] [address] 05590- 5293 Oct, Type 2 diabetes mellitus without complications E11.9 [facility] [place] [address] [place] [id number] [place] [address] 80435- 1147 Oct, Type 2 diabetes mellitus with hyperglycemia E11.65 [facility] [place] [address] [place] [id number] [place] [address] 67923- 2691 Aug, Type 2 diabetes mellitus without complications E11.9 [facility] [place] [address] [place] [id number] [place] [address] 64669- 6347 Aug, Type 2 diabetes mellitus without complications E11.9 ; Hypoglycemia E16.2 ; Lumbago M54.5 ; Stress incontinence of urine N39.3 and History of MN (myocardial infarction) I25.2 [facility], [place] [address] [place] [address] 05135- 9864 Jun, [facility], [place] [address] [place] [id number] [place] [address] 14799- 1997 May, [facility] [place] [address] [place] [id number] [place] [address] 50831- 5223 Apr, Panic disorder with agoraphobia F40.01 [facility] [place] [address] [place] [id number] [place] [address] 50429- 0665 08 Apr, 2017 Panic disorder with agoraphobia F40.01 [facility] [place] [address] [address]- 2164 Apr, [facility] [place] [address], [place] [address]- 0027 March, Other chronic pain G89.29 [facility] [place] [address] [place] [id number] [place] [address] 04531- 9257 March, [facility] [place] [address] [place] [id number] [address]- 9233 March, [facility] [place] [address] [place] [id number] [place] [address] 14008- 5703 March, [facility] [place] [address] [place] [id number] [place] [address] 87325- 4389 March, [facility] [place] [address] [place] [address] 86245- 4653 March, Type 2 diabetes mellitus without complications E11.9 [facility], [place] [address], [place] [address]- 0917 March, Diarrhea, unspecified type R19.7 [facility], [place] [address], [place] [address]- 6320 March, Bipolar 2 disorder F31.81 ; Chronic post-traumatic stress disorder (PTSD) F43.12 and Type 2 diabetes mellitus with hyperglycemia E11.65 [facility], [place] [address] [address]- 6081 March, [facility] [place] [address] [place] [address] 13319- 6039 March, [facility], [place] [address], [place] [address]- 8841 March, Hypertension, benign I10 ; Type 2 diabetes mellitus with hyperglycemia E11.65 ; Hepatitis C B19.20 ; Gastritis and duodenitis K29.90 and Dysuria R30.0 [facility] [place] [address] [place] [id number] [place] [address] 11272- 9273 March, Hypertension, benign I10 ; Type 2 diabetes mellitus with hyperglycemia E11.65 ; Hepatitis C B19.20 ; Gastritis and duodenitis K29.90 and Dysuria R30.0 [facility], [place] [address] [place] [id number] [place] [address] 86528- 3213 March, Panic disorder with agoraphobia F40.01 ; Chronic post- traumatic stress disorder (PTSD) F43.12 ; Epilepsy G40.909 and Bipolar I disorder with mood-congruent psychotic features F31.9 [place] [address] [place] [id number] [place] [address] 99135- 6399 March, [place] [address] [place] [id number] [place] [address] 75466- 0565 March, Type 2 diabetes mellitus with hyperglycemia E11.65 [place] [address] [place] [id number] [place] [address] 54459- 3227 18 Jan, 2017 Bipolar I disorder with duy F31.10 [place] [address] [place] [id number] [place] [address] 74150- 1482 Jan, Bipolar 2 disorder F31.81 ; Chronic post-traumatic stress disorder (PTSD) F43.12 and Type 2 diabetes mellitus with hyperglycemia E11.65 [place] [address] [place] [id number] [place] [address] 46478- 5388 Jan, [facility] [place] [address] [place] [id number] [place] [address] 11118- 3702 Jan, [facility] [place] [address] [place] [id number] [place] [address] 22819- 4225 14 Jan, 2017 Panic disorder with agoraphobia F40.01 [facility] [place] [address] [place] [id number] [place] [address] 19990- 5795 Jan, Panic disorder with agoraphobia F40.01 ; Bipolar I disorder with mood-congruent psychotic features F31.9 ; Chronic post-traumatic stress disorder (PTSD) F43.12 and Epilepsy G40.909 [facility] [place] [address] [place] [id number] [place] [address] 48846- 1417 Jan, [facility] [place] [address] [place] [id number] [place] [address] 84619- 3194 Jan, [facility] [place] [address] [place] [id number] [place] [address] 40847- 4734 10 Jan, 2017 Type 2 diabetes mellitus without complications E11.9 and Hypoglycemia E16.2 [facility] [place] [address] [place] [id number] [place] [address] 95845- 9555 07 Jan, 2017 Type 2 diabetes mellitus without complications E11.9 ; Primary insomnia F51.01 and Hypertension, benign I10 [facility] [place] [address] [place] [id number] [place] [address] 01695- 9537 06 Jan, 2017 [facility] [address] [id number] Jan, [facility] [place] [address] [place] [id number] [place] [address] 21340- 3486 31 Dec, 2016 Type 2 diabetes mellitus with hyperglycemia E11.65 [facility] [place] [address] [place] [id number] [place] [address] 30127- 4488 Dec, [facility] [place] [address] [place] [id number] [place] [address] 46477- 0221 Dec, Bipolar 2 disorder F31.81 ; Panic disorder with agoraphobia F40.01 ; Chronic post-traumatic stress disorder (PTSD) F43.12 and Epilepsy G40.909 [facility] [place] [address] [place] [id number] [place] [address] 74551- 9220 Dec, [facility] [place] [address] [place] [id number] [place] [address] 68261- 5958 14 Dec, 2016 [facility] [place] [address] [place] [address] 87389- 0582 Dec, Bipolar 2 disorder F31.81 ; Panic disorder with agoraphobia F40.01 ; Chronic post-traumatic stress disorder (PTSD) F43.12 and Epilepsy G40.909 [place] [address] 76595- 9059 Dec, [facility] [place] [address] 16399- 2094 Dec, [place] [address] 47767- 1851 Dec, [place] [address] 08553- 3877 Dec, Type 2 diabetes mellitus with hyperglycemia E11.65 ; prison 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 and Lumbago M54.5 [place] [address] [place] [id number] [place] [address] 08187- 1541 Dec, [place] [address] 69519- 6597 Dec, [place] [address] 14236- 7390 Dec, [facility] [address] 06175 -4114 Dec, Pain of left leg M79.605 and Pain in right leg M79.604 [place] [address] [place] [id number] [place] [address] 59695- 1318 Dec, [place] [address] [place] [id number] [place] [address] 88060- 0316 Dec, Type 2 diabetes mellitus with hyperglycemia E11.65 [place] [address] 56233- 4884 Dec, [place] [address] [place] [id number] [place] [address] 88673- 4025 Dec, Type 2 diabetes mellitus with hyperglycemia E11.65 ; 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 ; Vagina, candidiasis B37.3 and Other chronic pain G89.29 [facility] [place] [address] [place] [id number] [place] [address] 58311- 3527 Nov, Panic disorder with agoraphobia F40.01 [facility] [place] [address] [place] [id number] [place] [address] 62218- 0179 Nov, [facility] [place] [address] 62650- 4026 Nov, [facility] [place] [address] 76131- 4333 Nov, Hypoglycemia E16.2 [place] [address] 492378- 5805 Nov, [place] [address] 90830- 0923 Nov, [place] [address] 87886- 5625 Nov, [facility] [place] [address] [place] [id number] [place] [address] 12263- 1411 Nov, Type 2 diabetes mellitus with hyperglycemia E11.65 and prison 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 [place] [address] [place] [id number] [place] [address] 09334- 4670 Nov, Panic disorder with agoraphobia F40.01 ; Bipolar 2 disorder F31.81 ; Chronic post-traumatic stress disorder (PTSD) F43.12 and Epilepsy G40.909 [facility] [place] [address] [place] [id number] [place] [address] 44280- 2816 Nov, Panic disorder with agoraphobia F40.01 [facility] [place] [address] [place] [id number] [place] [address] 03974- 0434 Oct, [place] [address] [place] [id number] [place] [address] 09256- 8179 Oct, [facility] [place] [address] 86692- 1999 Oct, Bipolar 2 disorder F31.81 ; Panic disorder with agoraphobia F40.01 and Mood disorder F39 [facility], [place] [id number] [place] [address] 95698- 5724 Oct, Diabetes E11.9 ; Type 2 diabetes mellitus with hyperglycemia E11.65 and prison 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 [facility], [place] [id number] [place] [address] 06687- 7621 Oct, [facility], [place] [id number] [place] [address] 57590- 0043 Sep, [facility], [place] [id number] [place] [address] 21520- 6850 Sep, Bipolar 2 disorder F31.81 and Mood disorder F39 [facility], [place] [id number] [place] [address] 18241- 5389 Sep, [facility], [place] [id number] [place] [address] 25097- 9291 Sep, Uncontrolled type 2 diabetes mellitus without complication, without long-term current use of insulin E11.65 [facility], [place] [id number] [place] [address] 84779- 6760 Sep, [facility], [place] [id number] [place] [address] 09829- 8287 Sep, [facility], [place] [id number] [place] [address] 88932- 9747 Sep, [facility], [place] [id number] [place] [address] 33124- 7679 Sep, [facility], [place] [id number] [place] [address] 64215- 3381 Sep, Bipolar 2 disorder F31.81 ; Chronic post-traumatic stress disorder (PTSD) F43.12 ; Panic disorder with agoraphobia F40.01 and Epilepsy G40.909 [facility], [place] [id number] [place] [address] 60556- 4254 Sep, Bipolar 2 disorder F31.81 ; PTSD (post-traumatic stress disorder) F43.10 and Panic disorder with agoraphobia F40.01 [facility], [place] [id number] [place] [address] 12484- 7054 Sep, [facility], [place] [id number] [place] [address] 86344- 7967 28 Aug, 2016 History of seizures Z87.898 ; Panic disorder with agoraphobia F40.01 and Bipolar 2 disorder F31.81 [facility], [place] [id number] [place] [address] 87706- 8763 19 Aug, 2016 [facility], [place] [id number] [place] [address] 76726- 7082 17 Aug, 2016 [facility], [place] [id number] [place] [address] 78080- 7265 Aug, [facility], [place] [id number] [place] [address] 82780- 3957 Aug, [facility], [place] [id number] [place] [address] 85176- 7795 Aug, [facility], [place] [id number] [place] [address] 51201- 4826 Aug, [facility], [place] [id number] [place] [address] 48858- 1442 Aug, Hypoglycemia E16.2 and Bilateral impacted cerumen H61.23 [facility], [place] [id number] [place] [address] 09632- 2932 Aug, [facility], [place] [id number] [place] [address] 49839- 2394 21 Jul, 2016 [facility], [place] [id number] [place] [address] 34189- 1869 21 Jul, 2016 [facility], [place] [id number] [place] [address] 99567- 4975 Jul, Bipolar 2 disorder F31.81 ; Panic disorder with agoraphobia F40.01 ; PTSD (post-traumatic stress disorder) F43.10 and Epilepsy G40.909 [facility], [place] [address] [place] [address] 87370- 6351 Jul, [facility], [place] [id number] [place] [address] 97298- 4636 Jul, Type 2 diabetes mellitus without complications E11.9 and Coughing R05 [facility], [place] [id number] [place] [address] 74392- 9283 Jul, [facility], [place] [id number] [place] [address] 28638- 2782 Jun, [facility], [place] [id number] [place] [address] 44018- 5379 Jun, Bipolar 2 disorder F31.81 ; PTSD (post-traumatic stress disorder) F43.10 and Panic disorder with agoraphobia F40.01 [facility], [place] [address] [place] [address] 24196- 6061 Jun, [facility], [place] [id number] [place] [address] 49253- 2028 Jun, [facility], [place] [address] [place] [address] 87893- 1766 Jun, [facility], [place] [id number] [place] [address] 87291- 3769 Jun, Type 2 diabetes mellitus without complications E11.9 and COPD (chronic obstructive pulmonary disease) J44.9 [facility] [address] [place] [address] [id number] May, Dental examination Z01.20 and Dental caries K02.9 [facility], [place] [address] [address]- 5017 May, Bipolar 2 disorder F31.81 ; PTSD (post-traumatic stress disorder) F43.10 and Panic disorder with agoraphobia F40.01 [address] [address] May, Lumbago with sciatica, right side M54.41 ; Other chronic pain G89.29 and Uncontrolled type 2 diabetes mellitus without complication, without long-term current use of insulin E11.65 [id number] [place] [address] 13683- 1735 May, Chronic bronchitis, unspecified chronic bronchitis type J42 [address] [id number] [place] [address] 57846- 6582 May, [id number] [place] [address] 39464- 9362 May, [id number] [place] [address] 23928- 0357 May, Chest pain, unspecified type R07.9 ; Tobacco use Z72.0 ; Type 2 diabetes mellitus without complications E11.9 ; Essential hypertension I10 ; Hyperlipidemia, unspecified hyperlipidemia type E78.5 ; Obesity (BMI 30- 39.9) E66.9 ; History of hypothyroidism Z86.39 ; Chronic obstructive pulmonary disease, unspecified COPD type J44.9 ; Anxiety F41.9 ; Bilateral claudication of lower limb I73.9 and Bipolar 2 disorder F31.81 [id number] [place] [address] 59917- 2225 May, Bipolar 2 disorder F31.81 ; Panic disorder with agoraphobia F40.01 and Tobacco abuse Z72.0 [address] [place] [address] 81468- 6603 Apr, [id number] [place] [address] 15622- 4245 Apr, [address] [place] [address] 79794- 4273 Apr, [address] [id number] [place] [address] 92115- 4745 Apr, Bipolar 2 disorder F31.81 ; Panic disorder with agoraphobia F40.01 and PTSD (post-traumatic stress disorder) F43.10 [address] 02131- 2772 Apr, Chronic bronchitis, unspecified chronic bronchitis type J42 ; Cervical neuritis M54.12 and Thoracic neuritis M54.14 [address] 30347- 0007 Apr, [address] 77043- 4972 15 Apr, 2016 Cervicalgia M54.2 [address] 25318- 4052 Apr, Bipolar 2 disorder F31.81 ; Panic disorder with agoraphobia F40.01 and PTSD (post-traumatic stress disorder) F43.10 [facility] [address] 79325 -3426 13 Apr, 2016 [facility] [address] 39998 -9430 09 Apr, 2016 Cough R05 and Tobacco dependence F17.200 [address] 06898- 5558 06 Apr, 2016 [address] 42874- 4846 Apr, [address] 60434- 2563 March, Bipolar 2 disorder F31.81 ; Panic disorder with agoraphobia F40.01 and Generalized anxiety disorder F41.1 [address] 53379- 8164 March, Closed displaced fracture of fifth metatarsal bone of right foot with routine healing, subsequent encounter S92.351D [address] 03567- 5520 March, Bronchitis J40 [id number] [place] [address] 94216- 4109 March, [address] [id number] [place] [address] 50835- 1887 March, [address] [id number] [place] [address] 37892- 0691 March, Foot pain, right M79.671 ; Cervicalgia M54.2 and 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 mellitus without complication, 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 [address] 72314- 9692 March, Fracture of fifth metatarsal bone of right foot S92.351A [address] 17423- 0843 March, [address] 52088- 7895 Jan, Fracture of fifth metatarsal bone of right foot S92.351A [address] [id number] [place] [address] 70105- 7535 Jan, Bipolar 2 disorder F31.81 ; PTSD (post-traumatic stress disorder) F43.10 ; Panic disorder with agoraphobia F40.01 and Epilepsy G40.909 [address] [id number] [place] [address] 55148- 9234 Jan, History of MN (myocardial infarction) I25.2 and History of high cholesterol Z86.39 [id number] [place] [address] 20182- 7854 Jan, Bipolar 2 disorder F31.81 ; Panic disorder with agoraphobia F40.01 ; Tobacco abuse Z72.0 and PTSD (post-traumatic stress disorder) F43.10 [id number] [place] [address] 11165- 4648 Jan, Fracture of fifth metatarsal bone of right foot S92.351A [id number] [place] [address] 73101- 0002 Jan, [id number] [place] [address] 49487- 3925 Jan, History of high cholesterol Z86.39 [address] [id number] [place] [address] 98984- 1049 Jan, History of MN (myocardial infarction) I25.2 [id number] [place] [address] 68325- 2525 Jan, [id number] [place] [address] 29500- 0335 Dec, Back pain M54.9 ; Diabetes E11.9 ; Right knee pain M25.561 and Chest pain R07.9 [address] [id number] [place] [address] 18300- 3747 Dec, [address] [id number] [place] [address] 27030- 8174 Dec, [address] [id number] [place] [address] 90373- 8067 Dec, Cervicalgia M54.2 [address] [id number] [place] [address] 49523- 6033 Dec, Bipolar 2 disorder F31.81 ; PTSD (post-traumatic stress disorder) F43.10 ; Panic disorder with agoraphobia F40.01 and Epilepsy G40.909 [id number] [place] [address] 73074- 7409 Dec, Bipolar 2 disorder F31.81 ; PTSD (post-traumatic stress disorder) F43.10 and Panic disorder with agoraphobia F40.01 [address] [id number] [place] [address] 48935- 1585 Dec, Diabetes E11.9 [address] [id number] [place] [address] 35753- 9200 Dec, [facility], [place] [address] 74155- 6990 Dec, Other chronic pain G89.29 ; Hepatitis C B19.20 and History of seizures Z87.898 [facility], [place] [id number] [place] [address] 27292- 4858 24 Dec, 2015 [facility], [place] [address] 17846- 7737 Dec, Bipolar 2 disorder F31.81 and Other chronic pain G89.29 [facility], [place] [address] 09573- 7622 Dec, Cervicalgia M54.2 and Diabetes E11.9 [facility], [place] [address] 00919- 8079 Dec, [facility], [place] [address] 47992- 0521 Dec, [facility], [place] [id number] [place] [address] 90757- 0664 Dec, [facility], [place] [id number] [place] [address] 56555- 3025 16 Dec, 2015 [facility], [place] [id number] [place] [address] 74979- 5651 Dec, Type 2 diabetes mellitus without complications E11.9 [facility], [place] [id number] [place] [address] 65872- 8532 10 Dec, 2015 [facility], [place] [id number] [place] [address] 42028- 9326 09 Dec, 2015 History of seizures Z87.898 and Hepatitis C B19.20 [facility], [place] [id number] [place] [address] 49774- 5439 08 Dec, 2015 Hepatitis C B19.20 [address] [id number] [place] [address] 95581- 9230 04 Dec, [address] 11459- 6374 04 Dec, 2015 Cervicalgia M54.2 ; COPD (chronic obstructive pulmonary disease) J44.9 and Hepatitis C B19.[address] 96168- 0515 02 Dec, 2015 Bipolar 2 disorder F31.81 ; History of hypertension Z86.79 ; History of anxiety Z86.59 ; Panic disorder with agoraphobia F40.01 and Epilepsy G40.[address] 89364- 6805 Nov, [address] 39841- 9824 Nov, [address] 88447- 3236 Nov, History of seizures Z87.898 ; OAB (overactive bladder) N32.81 ; Lumbago M54.5 ; Other chronic pain G89.29 ; Cervicalgia M54.2 ; Tobacco abuse Z72.0 ; Tobacco abuse counseling Z71.6 and Impaired fasting glucose R73.01 [id number] [place] [address] 51648- 7971 Nov, Bipolar 2 disorder F31.81 ; PTSD (post-traumatic stress disorder) F43.10 ; History of anxiety Z86.59 ; History of COPD Z87.09 ; Panic disorder with agoraphobia F40.01 and Moderate depressed bipolar I disorder F31.[address] 08493- 7862 12 Nov, 2015 PTSD (post-traumatic stress disorder) F43.10 [facility] [id number] [place] [address] [id number] [phone] Nov, 2015 Dental examination Z01.20 and Dental caries K02.9 [address] [id number] [place] [address] 79798- 6218 08 Nov, 2015 History of hypertension Z86.79 ; History of hypothyroidism Z86.39 ; History of high cholesterol Z86.39 ; History of COPD Z87.09 and Overactive bladder N32.81 [address] [id number] [place] [address] 18553- 5750 Nov, Bipolar 2 disorder F31.81 and PTSD (post-traumatic stress disorder) F43.10 [address] [id number] [place] [address] 19415- 0520 Nov, PTSD (post-traumatic stress disorder) F43.10 ; Panic disorder with agoraphobia F40.01 ; Epilepsy G40.909 and Moderate depressed bipolar I disorder F31.32 [id number] [place] [address] 06101- 6702 Nov, [id number] [place] [address] 98903- 5414 Nov, [address] [id number] [place] [address] 14014- 6307 Oct, [address] [id number] [place] [address] 50239- 7064 Oct, Generalized anxiety disorder F41.1 ; Major depression, recurrent F33.9 and PTSD (post-traumatic stress disorder) F43.10 [address] [id number] [place] [address] 47880- 0211 Oct, Elevated fasting glucose R73.01 [address] [id number] [place] [address] 02619- 5571 Oct, Elevated fasting glucose R73.01 [place] [id number] [place] [address] 69293- 8619 Oct, History of COPD Z87.09 [place] [id number] [place] [address] 63471- 2459 Oct, General medical exam Z00.00 ; History of hypertension Z86.79 ; History of hypothyroidism Z86.39 ; History of hepatitis Z86.19 ; History of high cholesterol Z86.39 and History of seizures Z87.898 [facility], [place] [address] [address]- 9716 Oct, General medical exam Z00.00 ; History of hypertension Z86.79 ; History of hypothyroidism Z86.39 ; Bipolar 2 disorder F31.81 ; PTSD ( post-traumatic stress disorder) F43.10 ; History of hepatitis Z86.19 ; History of high cholesterol Z86.39 ; History of anxiety Z86.59 ; History of seizures Z87.898 ; History of MN (myocardial infarction) I25.2 and History of COPD Z87.09 [facility], [place] [address] [address]- 9941 Oct, Generalized anxiety disorder F41.1 ; Depression F32.9 and PTSD (post-traumatic stress disorder) F43.10 [facility], [place] [address] [address]- 4892 Jan, [facility], [place] [address] [address]- 3552 Jan, [facility], [place] [id number] [address]- 0548 Jun, [address] [place] [id number] Jun, [facility], [place] [id number] [address]- 7436 May, [facility], [place] [id number] [address]- 7798 May, [facility] [address] [place] [place] [id number] May, [facility], [place] [id number] [address]- 2546 May, [address] [place] [id number] May, [place] [address] [facility] [id number] [place] [address]- 8352 May, IMMUNIZATIONS No Known Immunizations SOCIAL HISTORY Never Assessed REASON FOR VISIT Refill request PLAN OF CARE VITAL SIGNS MEDICATIONS Medication Instructions Dosage Frequency Start Date End Date Duration Status Xanax 2 MG Orally 3 times a day and can take 1/2 additional tablet for panic 1 tablet 28 days Active RESULTS No [...]
--- OUTSIDE RECORDS SUMMARY | 2019-01-26 07:15 | XMS REPORT ---
Author Author GERARDO [facility] Address [address] [place] [address] Care Team Providers Care Fuel Cell Battery Technician Name Role Phone MARGI GERARDO Unavailable PROBLEMS Type Condition ICD9-CM Code FCS12-SJ Code Onset Dates Condition Status SNOMED Code Problem OAB (overactive bladder) N32.81 Active 135368907 Problem Epilepsy G40.909 Active 46925200 Problem Cervicalgia M54.2 Active 06664510 Problem Other chronic pain G89.29 Active 64750584 Problem Tobacco abuse Z72.0 Active 96486967 Problem Lumbago M54.5 Active 962020058 Problem Hepatitis C B19.20 Active 13897901 Problem COPD (chronic obstructive pulmonary disease) J44.9 Active 99281269 Problem Diabetes E11.9 Active 31388683 Problem Bipolar I disorder with duy F31.10 Active 18901169 Problem Type 2 diabetes mellitus without complications E11.9 Active 392720920 Problem Stress incontinence of urine N39.3 Active 75575446 Problem Bilateral claudication of lower limb I73.9 Active 159060148 Problem Seasonal allergic rhinitis due to other allergic trigger J30.89 Active 710771432 Problem Hyperlipidemia, unspecified hyperlipidemia type E78.5 Active 70680944 Problem Hypertension, unspecified type I10 Active 11046277 Problem Chronic tension-type headache, not intractable G44.229 Active 139364333 Problem 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 mellitus without complication, without long -term current use of insulin E11.9 Active 097245391 Problem Type 2 diabetes mellitus with hyperglycemia E11.65 Active 976564826 Problem Chronic post-traumatic stress disorder (PTSD) F43.12 Active 608571867 Problem History of hypothyroidism Z86.39 Active 558275474 Problem Hypoglycemia E16.2 Active 819079473 Problem El's esophageal ulceration K22.10 Active 711106820 Problem Bipolar affective disorder, currently depressed, mild F31.31 Active 173052885 Problem Irritable bowel syndrome with diarrhea K58.0 Active 712028045 Problem Stress incontinence N39.3 Active 73522464 Problem History of hypertension Z86.79 Active 369955794 Problem Uncontrolled type 2 diabetes mellitus without complication, without long-term current use of insulin E11.65 Active 260743340 Problem Panic disorder with agoraphobia F40.01 Active 76260049 Problem Type 2 diabetes mellitus with hyperglycemia E11.65 Active 860993955 Problem History of seizures Z87.898 Active 567462110 Problem assisted 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 Active 015464766 Problem History of OR (myocardial infarction) I25.2 Active 328101513 Problem Mood disorder F39 Active 03370345 Problem Bipolar 2 disorder F31.81 Active 63867186 Problem Gastritis and duodenitis K29.90 Active 181838785 Problem History of high cholesterol Z86.39 Active 290127075 Problem Bipolar I disorder with mood-congruent psychotic features F31.9 Active 949096914 Problem Hypertension, benign I10 Active 66585953 Problem Primary insomnia F51.01 Active 8785337 ALLERGIES No Information ENCOUNTERS Encounter Location Date Diagnosis [facility] [id number] [place] [address] 40624- 3298 Nov, [facility] [id number] [place] [address] 81864- 4635 Jul, [facility] [id number] [place] [address] 11776- 3169 Jul, [facility] [id number] [place] [address] 36041- 3254 Jul, [facility] [id number] [place] [address] 97720- 8702 13 Jul, 2018 Bipolar 2 disorder F31.81 ; Panic disorder with agoraphobia F40.01 and Chronic post-traumatic stress disorder (PTSD) F43.12 [facility] [id number] [place] [address] 97044- 1448 Jun, [facility] [id number] [place] [address] 47424- 4852 Jun, [facility] [address] [place] [address] 7528 Jun, Lumbago M54.5 [facility] [id number] [place] [address] 82441- 9011 Jun, Type 2 diabetes mellitus with hyperglycemia E11.65 [facility] [id number] [place] [address] 81330- 7358 Jun, [facility] [id number] [place] [address] 59522- 2835 Jun, Type 2 diabetes mellitus with hyperglycemia E11.65 ; El 's esophageal ulceration K22.10 and Lumbago M54.5 [facility] [id number] [place] [address] 34761- 9718 Jun, Type 2 diabetes mellitus with hyperglycemia E11.65 [facility] [id number] [place] [address] 09914- 3899 Jun, [facility] [id number] [place] [address] 53324- 4166 Jun, [facility] [address] [place] [address] 74034- 8658 Jun, Bipolar affective disorder, currently depressed, mild F31.31 ; Chronic post-traumatic stress disorder (PTSD) F43.12 and Panic disorder with agoraphobia F40.01 [facility] [address] [place] [address] 55395- 5474 Jun, [facility] [address] [place] [address] 70436- 2625 Jun, [facility] [id number] [place] [address] 44735- 7648 Jun, Type 2 diabetes mellitus with hyperglycemia E11.65 [facility] [id number] [place] [address] 13626- 6889 Jun, Uncontrolled type 2 diabetes mellitus with hyperglycemia E11.65 [facility] [id number] [place] [address] 91166- 1222 Jun, [facility] [address] [id number] [place] [address]- 6834 May, Lumbago M54.5 [facility] [address] [id number] [place] [id number] May, [facility] [address] [facility] [id number] [place] [address]- 1306 May, [facility] [address] [facility] [id number] [place] [address] 2546 May, [facility] [address] [facility]] [id number] [place] [address]- 1605 May, [facility] [address] [id number] [place] [address]- 1396 May, [facility] [address] [facility] [id number] [place] [address]- 8226 May, [facility] [address] [facility] [id number] [place] [address]- 6765 May, [facility] [address] [facility] [id number] [place] [address]- 2089 May, Lumbago M54.5 [facility] [address] [facility] [id number] [place] [address]- 5586 May, [facility] [address] [facility] [id number] [address] [address], [address] of the chest R93.8 [facility] [address] [facility] [id number] [place] [address]- 9576 Apr, Bipolar 2 disorder F31.81 ; Chronic post-traumatic stress disorder (PTSD) F43.12 and Panic disorder with agoraphobia F40.01 [facility] [address] [facility] [id number] [place] [address]- [address] Apr, [address] of the chest R93.8 [facility] [id number] [place] [address] 35882- 9537 20 Apr, [address] of the chest R93.8 [facility] [address] 04698- 0369 Apr, [facility] [id number] [place] [address] 20837- 3356 Apr, Type 2 diabetes mellitus with hyperglycemia E11.65 [facility] [address] 42501- 8833 Apr, 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 mellitus without complication, without long-term current use of insulin E11.9 ; Watery eyes H04.203 ; Low back pain M54.5 ; Other chronic pain G89.29 ; Chronic tension-type headache, not intractable G44.229 ; Uncontrolled type 2 diabetes mellitus without complication , without long-term current use of insulin E11.65 and Bronchitis J40 [facility] [address] 06327- 3168 Apr, [facility] [id number] [place] [address] 07916- 6905 Apr, Lumbago M54.5 [facility] [id number] [place] [address] 19651- 3261 March, [facility] [id number] [place] [address] 30869 -2554 March, Cough R05 ; Pneumonia due to infectious organism, unspecified laterality, unspecified part of lung J18.9 and Non-intractable vomiting with nausea, unspecified vomiting type R11.2 [facility] [id number] [place] [address] 60312- 8677 March, Bronchitis J40 [facility] [id number] [place] [address] 44876- 2580 March, [facility] [id number] [place] [address] 57077- 3560 March, El's esophageal ulceration K22.10 and Type 2 diabetes mellitus with hyperglycemia E11.65 [facility] [id number] [place] [address] 74810- 4592 March, Panic disorder with agoraphobia F40.01 ; Chronic post- traumatic stress disorder (PTSD) F43.12 and Bipolar 2 disorder F31.81 [facility] [id number] [place] [address] 73199- 3678 March, Type 2 diabetes mellitus with hyperglycemia E11.65 [facility] [id number] [place] [address] 79726- 8943 March, [facility] [address] 41417- 8622 March, Lumbago M54.5 [facility] [id number] [place] [address] 36894- 8466 March, [facility] [id number] [place] [address] 60910- 6900 March, Irritable bowel syndrome with diarrhea K58.0 ; Primary insomnia F51.01 ; Type 2 diabetes mellitus with hyperglycemia E11.65 and assisted 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 [facility] [id number] [place] [address] 94127- 9152 March, [facility] [id number] [address]- 9771 Jan, [facility] [id number] [place] [address] 46241- 8951 Jan, [facility] [id number] [place] [address] 00735- 5108 Jan, [facility] [id number] [place] [address] 16646- 8005 Jan, [facility] [id number] [place] [address] 30570- 9263 Jan, Dizziness R42 [facility] [address] [place] [address]- 1785 Jan, Bipolar affective disorder, currently depressed, mild F31.31 ; Panic disorder with agoraphobia F40.01 and Chronic post-traumatic stress disorder (PTSD) F43.12 [facility] [id number] [place] [address] 82931- 9139 Jan, Dizziness R42 [facility] [address] 20862- 5510 Jan, Chest pain, unspecified type R07.9 ; Exertional dyspnea R06.09 ; Hypertension, unspecified type I10 and Hyperlipidemia, unspecified hyperlipidemia type E78.5 [facility] [address] 95113- 3683 Jan, [facility] [id number] [place] [address] 93786- 9176 Jan, Lumbago M54.5 [facility] [id number] [place] [address] 09029- 4282 Jan, El's esophageal ulceration K22.10 ; Blister (nonthermal ) of oral cavity, initial encounter S00.522A ; Local infection of the skin and subcutaneous tissue, unspecified L08.9 ; Type 2 diabetes mellitus with hyperglycemia E11.65 ; 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 and Stress incontinence N39.3 [facility] [id number] [place] [address] 10459- 6652 Dec, [facility] [id number] [place] [address] 63656- 5736 Dec, [facility] [id number] [place] [address] 94151- 6498 Dec, [facility] [id number] [place] [address] [id number] Dec, Dental examination Z01.20 [facility] [id number] [place] [address] 93490- 6353 15 Dec, 2017 Acute pain of right knee M25.561 [facility] [id number] [place] [address] 79263- 2740 14 Dec, 2017 [facility] [id number] [place] [address] 98950- 6050 14 Dec, 2017 [facility] [id number] [place] [address] 01026- 1249 Dec, Lumbago M54.5 ; Acute pain of right knee M25.561 and Seasonal allergic rhinitis due to other allergic trigger J30.89 [facility] [id number] [place] [address] 95332- 1728 Dec, Type 2 diabetes mellitus with hyperglycemia E11.65 [facility] [id number] [place] [address] 35096- 0676 Dec, [facility] [id number] [place] [address] 71058- 5303 Dec, [facility] [id number] [place] [address] 00278- 3677 23 Dec, 2017 [facility] [id number] [place] [address] 48872- 8361 Dec, [facility] [id number] [place] [address] 26794- 1522 15 Dec, 2017 Chronic post-traumatic stress disorder (PTSD) F43.12 and Panic disorder with agoraphobia F40.01 [facility] [id number] [place] [address] 07528- 1953 13 Dec, 2017 Low back pain M54.5 [facility] [id number] [place] [address] 86689- 0248 12 Dec, 2017 Type 2 diabetes mellitus with hyperglycemia E11.65 ; assisted 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 ; Low back pain M54.5 ; Other chronic pain G89.29 and Encounter for therapeutic drug level monitoring Z51.81 [facility] [id number] [place] [address] 29969- 7753 Dec, Coughing R05 [facility] [address], [place] [address]- 9399 Dec, [facility] [address] [id number] Dec, Dental examination Z01.20 [facility] [id number] [place] [address] 82013- 2295 Nov, Type 2 diabetes mellitus without complications E11.9 and Encounter for therapeutic drug level monitoring Z51.81 [facility] [id number] [place] [address] 59190- 1936 Nov, [facility] [id number] [place] [address] 01663- 5804 Oct, Type 2 diabetes mellitus without complications E11.9 [facility] [id number] [place] [address] 66494- 5907 Oct, Type 2 diabetes mellitus with hyperglycemia E11.65 [facility] [address] [place] [address] 31683- 6113 Aug, Type 2 diabetes mellitus without complications E11.9 [facility] [address] [place] [address] 47657- 4868 Aug, Type 2 diabetes mellitus without complications E11.9 ; Hypoglycemia E16.2 ; Lumbago M54.5 ; Stress incontinence of urine N39.3 and History of OR (myocardial infarction) I25.2 [facility] [address], [place] [address]- 8594 Jun, [facility] [id number] [place] [address] 42743- 6842 May, [facility] [address] [place] [address] 83367- 1514 Apr, Panic disorder with agoraphobia F40.01 [facility] [id number] [place] [address] 28639- 5886 Apr, Panic disorder with agoraphobia F40.01 [facility] [address] [place] [address] 42912- 6854 Apr, [facility] [id number] [place] [address] 32178- 6997 March, Other chronic pain G89.29 [facility] [id number] [place] [address] 41597- 5084 March, [facility] [id number] [place] [address] 79918- 8835 March, [facility] [id number] [place] [address] 13886- 9449 March, [facility] [id number] [place] [address] 38720- 3513 March, [facility] [id number] [place] [address] 77004- 8966 March, Type 2 diabetes mellitus without complications E11.9 [facility] [address] [place] [address] 39915- 2459 March, Diarrhea, unspecified type R19.7 [facility] [address] [place] [address] 34886- 5198 March, Bipolar 2 disorder F31.81 ; Chronic post-traumatic stress disorder (PTSD) F43.12 and Type 2 diabetes mellitus with hyperglycemia E11.65 [facility] [address], [place] [address]- 8983 March, [facility] [id number] [place] [address] 76650- 2241 March, [facility] [address] [place] [address] 26793- 5925 March, Hypertension, benign I10 ; Type 2 diabetes mellitus with hyperglycemia E11.65 ; Hepatitis C B19.20 ; Gastritis and duodenitis K29.90 and Dysuria R30.0 [facility] [address], [place] [address]- 3731 March, Hypertension, benign I10 ; Type 2 diabetes mellitus with hyperglycemia E11.65 ; Hepatitis C B19.20 ; Gastritis and duodenitis K29.90 and Dysuria R30.0 [facility] [id number] [place] [address] 10989- 2926 March, Panic disorder with agoraphobia F40.01 ; Chronic post- traumatic stress disorder (PTSD) F43.12 ; Epilepsy G40.909 and Bipolar I disorder with mood-congruent psychotic features F31.9 [facility] [id number] [place] [address] 88185- 7051 March, [facility] [id number] [place] [address] 98248- 1441 March, Type 2 diabetes mellitus with hyperglycemia E11.65 [facility] [id number] [place] [address] 53789- 8614 18 Jan, 2017 Bipolar I disorder with duy F31.10 [facility] [id number] [place] [address] 31762- 6812 Jan, Bipolar 2 disorder F31.81 ; Chronic post-traumatic stress disorder (PTSD) F43.12 and Type 2 diabetes mellitus with hyperglycemia E11.65 [facility] [address] [place] [address] 71026- 8326 Jan, [facility] [id number] [place] [address] 00269- 6994 Jan, [facility] [address] [place] [address] 04880- 2588 14 Jan, 2017 Panic disorder with agoraphobia F40.01 [facility] [address] [place] [address] 42903- 6276 13 Jan, 2017 Panic disorder with agoraphobia F40.01 ; Bipolar I disorder with mood-congruent psychotic features F31.9 ; Chronic post-traumatic stress disorder (PTSD) F43.12 and Epilepsy G40.909 [facility] [address], [place] [address]- 4798 Jan, [facility] [address] [place] [address] 81991- 2998 Jan, [facility] [id number] [place] [address] 64998- 5093 10 Jan, 2017 Type 2 diabetes mellitus without complications E11.9 and Hypoglycemia E16.2 [facility] [id number] [place] [address] 28173- 5416 07 Jan, 2017 Type 2 diabetes mellitus without complications E11.9 ; Primary insomnia F51.01 and Hypertension, benign I10 [facility] [id number] [place] [address] 74355- 5772 Jan, [facility] [id number] [place] [address] [id number] Jan, [facility] [id number] [place] [address] 36376- 7039 Dec, Type 2 diabetes mellitus with hyperglycemia E11.65 [facility] [id number] [place] [address] 33551- 4181 Dec, [facility] [id number] [place] [address] 11987- 0336 Dec, Bipolar 2 disorder F31.81 ; Panic disorder with agoraphobia F40.01 ; Chronic post-traumatic stress disorder (PTSD) F43.12 and Epilepsy G40.909 [facility] [address], [place] [address]- 1775 Dec, [facility] [id number] [place] [address] 87485- 4236 14 Dec, 2016 [facility] [address], [place] [address]- 1073 09 Dec, 2016 Bipolar 2 disorder F31.81 ; Panic disorder with agoraphobia F40.01 ; Chronic post-traumatic stress disorder (PTSD) F43.12 and Epilepsy G40.909 [facility] [id number] [place] [address] 42677- 8559 Dec, [facility] [id number] [place] [address] 94744- 7085 Dec, [facility] [id number] [place] [address] 90608- 8611 Dec, [facility] [address] 62798- 7595 Dec, Type 2 diabetes mellitus with hyperglycemia E11.65 ; 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 and Lumbago M54.5 [facility] [address] 26072- 0394 Dec, [facility] [address] 59442- 2035 Dec, [facility] [id number] [place] [address] 27115- 8285 Dec, [facility] [id number] [place] [address] 27940 -8426 Dec, Pain of left leg M79.605 and Pain in right leg M79.604 [facility] [id number] [place] [address] 02948- 6148 Dec, [facility] [id number] [place] [address] 67577- 4720 Dec, Type 2 diabetes mellitus with hyperglycemia E11.65 [facility] [id number] [place] [address] 80439- 0872 Dec, [facility] [id number] [place] [address] [phone] [id number] Dec, Type 2 diabetes mellitus with hyperglycemia E11.65 ; assisted 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 ; Vagina, candidiasis B37.3 and Other chronic pain G89.29 [facility] [id number] [place] [address] [phone] Nov, Panic disorder with agoraphobia F40.01 [facility] [id number] [place] [address] [id number] Nov, [facility] [id number] [place] [address] [phone] Nov, [facility] [id number] [place] [address] [phone] Nov, Hypoglycemia E16.2 [place] [address] [phone]- [phone] Nov, [place] [address] [id number] [place] [address] [phone] [phone] Nov, [place] [id number] [place] [address] [phone] 4635 Nov, [place] [id number] [place] [address] [phone] 3463 Nov, Type 2 diabetes mellitus with hyperglycemia E11.65 and 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 [place] [id number] [place] [address] [phone]- [phone] Nov, Panic disorder with agoraphobia F40.01 ; Bipolar 2 disorder F31.81 ; Chronic post-traumatic stress disorder (PTSD) F43.12 and Epilepsy G40.909 [facility] [id number] [place] [address] 08720- 2205 Nov, Panic disorder with agoraphobia F40.01 [facility] [address] [place] [id number] [place] [address] 06157- 6786 Oct, [facility] [address] [id number] [place] [address] 25887- 3943 Oct, [facility] [address] [id number] [place] [address] 15586- 9362 Oct, Bipolar 2 disorder F31.81 ; Panic disorder with agoraphobia F40.01 and Mood disorder F39 [facility] [address] 94065- 7633 Oct, Diabetes E11.9 ; Type 2 diabetes mellitus with hyperglycemia E11.65 and 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 [facility] [address] 98400- 6360 Oct, [facility] [address] 75814- 7439 Sep, [facility] [address] 06052- 4730 Sep, Bipolar 2 disorder F31.81 and Mood disorder F39 [facility] [address] 04947- 0456 Sep, [facility] [address] 74456- 5861 Sep, Uncontrolled type 2 diabetes mellitus without complication, without long-term current use of insulin E11.65 [facility] [place] [address] 12978- 4757 Sep, [facility] [id number] [place] [address] 60530- 3638 Sep, [facility] [id number] [place] [address] 92992- 5226 Sep, [facility] [id number] [place] [address] 78552- 8099 Sep, [facility] [place] [address] 47761- 2422 Sep, Bipolar 2 disorder F31.81 ; Chronic post-traumatic stress disorder (PTSD) F43.12 ; Panic disorder with agoraphobia F40.01 and Epilepsy G40.909 [facility] [id number] [place] [address] 18196- 1015 Sep, Bipolar 2 disorder F31.81 ; PTSD (post-traumatic stress disorder) F43.10 and Panic disorder with agoraphobia F40.01 [facility] [id number] [place] [address] 83825- 2900 07 Sep, 2016 [facility] [id number] [place] [address] 70039- 6458 28 Aug, 2016 History of seizures Z87.898 ; Panic disorder with agoraphobia F40.01 and Bipolar 2 disorder F31.81 [facility] [address] 25693- 2618 19 Aug, 2016 [facility] [address] 45506- 5581 17 Aug, 2016 [facility] [address] 51213- 6761 Aug, [facility] [address] 41118- 2651 Aug, [facility] [id number] [place] [address] 03595- 1301 Aug, [facility] [id number] [place] [address] 66456- 4344 Aug, [facility] [id number] [place] [address] 49226- 7156 Aug, Hypoglycemia E16.2 and Bilateral impacted cerumen H61.23 [facility] [id number] [place] [address] 47845- 4666 Aug, [facility] [address] 74709- 0442 21 Jul, 2016 [facility] [id number] [place] [address] 61686- 9645 21 Jul, 2016 [facility] [address] 35155- 1773 Jul, Bipolar 2 disorder F31.81 ; Panic disorder with agoraphobia F40.01 ; PTSD (post-traumatic stress disorder) F43.10 and Epilepsy G40.909 [facility] [id number] [place] [address] 60751- 9405 Jul, [facility] [id number] [place] [address] 28756- 9619 Jul, Type 2 diabetes mellitus without complications E11.9 and Coughing R05 [facility] [id number] [place] [address] 89756- 9013 Jul, [facility] [id number] [place] [address] 76578- 9629 Jun, [facility] [id number] [place] [address] 22460- 6592 Jun, Bipolar 2 disorder F31.81 ; PTSD (post-traumatic stress disorder) F43.10 and Panic disorder with agoraphobia F40.01 [facility] [id number] [place] [address] 08227- 0166 Jun, [facility] [id number] [place] [address] 26785- 7989 Jun, [facility] [id number] [place] [address] 17031- 7665 Jun, [facility] [id number] [place] [address] 52183- 0059 Jun, Type 2 diabetes mellitus without complications E11.9 and COPD (chronic obstructive pulmonary disease) J44.9 [facility] [address] [id number] [id number] May, Dental examination Z01.20 and Dental caries K02.9 [facility] [id number] [place] [address] 70394- 0026 May, Bipolar 2 disorder F31.81 ; PTSD (post-traumatic stress disorder) F43.10 and Panic disorder with agoraphobia F40.01 [place] [address] [address]- 9968 May, Lumbago with sciatica, right side M54.41 ; Other chronic pain G89.29 and Uncontrolled type 2 diabetes mellitus without complication, without long-term current use of insulin E11.65 [facility] [id number] [place] [address] 76422- 0137 May, Chronic bronchitis, unspecified chronic bronchitis type J42 [facility] [address] [id number] [place] [address] 17065- 2605 May, [facility] [place] [address] [id number] [place] [address] 20358- 5847 May, [facility] [address] [id number] [place] [address] 69936- 6722 May, Chest pain, unspecified type R07.9 ; Tobacco use Z72.0 ; Type 2 diabetes mellitus without complications E11.9 ; Essential hypertension I10 ; Hyperlipidemia, unspecified hyperlipidemia type E78.5 ; Obesity (BMI 30- 39.9) E66.9 ; History of hypothyroidism Z86.39 ; Chronic obstructive pulmonary disease, unspecified COPD type J44.9 ; Anxiety F41.9 ; Bilateral claudication of lower limb I73.9 and Bipolar 2 disorder F31.81 [facility] [id number] [place] [address] 74134- 3859 May, Bipolar 2 disorder F31.81 ; Panic disorder with agoraphobia F40.01 and Tobacco abuse Z72.0 [facility] [id number] [place] [address] 03771- 1304 Apr, [facility] [address] [id number] [place] [address] 57926- 4600 Apr, [facility] [address] [address] [id number] [place] [address] 18071- 7124 Apr, [facility] [place] [address] [address] [id number] [place] [address] 79464- 6327 Apr, Bipolar 2 disorder F31.81 ; Panic disorder with agoraphobia F40.01 and PTSD (post-traumatic stress disorder) F43.10 [facility] [place] [address] 66936- 9120 Apr, Chronic bronchitis, unspecified chronic bronchitis type J42 ; Cervical neuritis M54.12 and Thoracic neuritis M54.[address] 99709- 9760 Apr, [facility] [address] 20447- 3758 15 Apr, 2016 Cervicalgia M54.[address] 73982- 9222 Apr, Bipolar 2 disorder F31.81 ; Panic disorder with agoraphobia F40.01 and PTSD (post-traumatic stress disorder) F43.10 [facility] [address] 23126 -7327 Apr, [facility] [address] 26837 -4012 09 Apr, 2016 Cough R05 and Tobacco dependence F17.[address] 12585- 8722 Apr, [address] 50939- 3792 Apr, [facility] [address] 49785- 0348 March, Bipolar 2 disorder F31.81 ; Panic disorder with agoraphobia F40.01 and Generalized anxiety disorder F41.[address] 59928- 8659 March, Closed displaced fracture of fifth metatarsal bone of right foot with routine healing, subsequent encounter S92.351D [facility] [address] 08305- 0490 March, Bronchitis J40 [facility] [address] [place] [id number] [place] [address] 60233- 4332 March, [facility] [place] [address] [place] [id number] [place] [address] 12382- 0021 March, [facility] [address] [place] [id number] [place] [address] 93912- 3158 March, Foot pain, right M79.671 ; Cervicalgia M54.2 and 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 mellitus without complication, 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 [facility] [address] [address] [id number] [place] [address] 54966- 1019 March, Fracture of fifth metatarsal bone of right foot S92.351A [facility] [address] [id number] [place] [address] 28329- 0645 March, [facility] [address] [id number] [place] [address] 32274- 2242 Jan, Fracture of fifth metatarsal bone of right foot S92.351A [facility] [address] [address] [id number] [place] [address] 84782- 1182 Jan, Bipolar 2 disorder F31.81 ; PTSD (post-traumatic stress disorder) F43.10 ; Panic disorder with agoraphobia F40.01 and Epilepsy G40.909 [facility] [address] [place] [id number] [place] [address] 87781- 8890 Jan, History of OR (myocardial infarction) I25.2 and History of high cholesterol Z86.39 [facility] [address] [place] [id number] [place] [address] 84988- 1049 Jan, Bipolar 2 disorder F31.81 ; Panic disorder with agoraphobia F40.01 ; Tobacco abuse Z72.0 and PTSD (post-traumatic stress disorder) F43.10 [facility] [address] [place] [id number] [place] [address] 99540- 4370 Jan, Fracture of fifth metatarsal bone of right foot S92.351A [facility] [address] [place] [address] 75561- 1081 Jan, [facility] [address] [place] [id number] [place] [address] 19358- 8751 Jan, History of high cholesterol Z86.39 [facility] [address] [place] [id number] [place] [address] 97313- 1122 Jan, History of OR (myocardial infarction) I25.2 [facility] [place] [address] [place] [id number] [place] [address] 42909- 5692 Jan, [facility] [place] [address] [place] [id number] [place] [address] 02745- 3251 Dec, Back pain M54.9 ; Diabetes E11.9 ; Right knee pain M25.561 and Chest pain R07.9 [facility] [place] [address] [place] [id number] [place] [address] 60296- 1569 Dec, [facility] [place] [address] [place] [id number] [place] [address] 67115- 8334 Dec, [facility] [place] [address] [place] [id number] [place] [address] 43046- 2938 Dec, Cervicalgia M54.2 [facility] [place] [address] [place] [id number] [place] [address] 75801- 7200 Dec, Bipolar 2 disorder F31.81 ; PTSD (post-traumatic stress disorder) F43.10 ; Panic disorder with agoraphobia F40.01 and Epilepsy G40.909 [facility] [place] [address] [place] [address] 62750- 8981 08 Jan, 2016 Bipolar 2 disorder F31.81 ; PTSD (post-traumatic stress disorder) F43.10 and Panic disorder with agoraphobia F40.01 [facility] [place] [address] [place] [address] 88740- 7253 Dec, Diabetes E11.9 [facility] [address] [place] [address]- 8360 Dec, [facility] [id number] [place] [address] 61879- 4714 Dec, Other chronic pain G89.29 ; Hepatitis C B19.20 and History of seizures Z87.898 [facility] [id number] [place] [address] 19190- 7725 Dec, [facility] [id number] [place] [address] 05214- 1289 Dec, Bipolar 2 disorder F31.81 and Other chronic pain G89.29 [facility] [address] [id number] [place] [address] 56894- 4197 Dec, Cervicalgia M54.2 and Diabetes E11.9 [facility] [id number] [place] [address] 11062- 5905 Dec, [facility] [id number] [place] [address] 58459- 5298 Dec, [facility] [id number] [place] [address] 26336- 4691 Dec, [facility] [id number] [place] [address] 66104- 4058 16 Dec, 2015 [facility] [id number] [place] [address] 10661- 2563 Dec, Type 2 diabetes mellitus without complications E11.9 [facility] [id number] [place] [address] 41036- 0330 10 Dec, 2015 [facility] [id number] [place] [address] 08312- 7000 09 Dec, 2015 History of seizures Z87.898 and Hepatitis C B19.20 [facility] [id number] [place] [address] 56735- 3755 08 Dec, 2015 Hepatitis C B19.20 [facility] [id number] [place] [address] 68482- 9085 04 Dec, 2015 [place] [place] [address] 34904- 0697 04 Dec, 2015 Cervicalgia M54.2 ; COPD (chronic obstructive pulmonary disease) J44.9 and Hepatitis C B19.[address] 26343- 5570 02 Dec, 2015 Bipolar 2 disorder F31.81 ; History of hypertension Z86.79 ; History of anxiety Z86.59 ; Panic disorder with agoraphobia F40.01 and Epilepsy G40.909 [facility] [place] [address] 82474- 0269 Nov, [facility] [address] 82704- 4594 Nov, [address] 47392- 4335 Nov, History of seizures Z87.898 ; OAB (overactive bladder) N32.81 ; Lumbago M54.5 ; Other chronic pain G89.29 ; Cervicalgia M54.2 ; Tobacco abuse Z72.0 ; Tobacco abuse counseling Z71.6 and Impaired fasting glucose R73.01 [facility] [place] [address] [address] [id number] [place] [address] 54045- 9994 Nov, Bipolar 2 disorder F31.81 ; PTSD (post-traumatic stress disorder) F43.10 ; History of anxiety Z86.59 ; History of COPD Z87.09 ; Panic disorder with agoraphobia F40.01 and Moderate depressed bipolar I disorder F31.32 [facility] [address] [address] [id number] [place] [address] 79347- 7521 12 Nov, 2015 PTSD (post-traumatic stress disorder) F43.10 [facility] [id number] [place] [address] [id number] 11 Nov, 2015 Dental examination Z01.20 and Dental caries K02.9 [facility] [place] [address] [place] [address] 21958- 9756 08 Nov, 2015 History of hypertension Z86.79 ; History of hypothyroidism Z86.39 ; History of high cholesterol Z86.39 ; History of COPD Z87.09 and Overactive bladder N32.81 [facility] [place] [address] [address] [place] [address] 91144- 3054 Nov, Bipolar 2 disorder F31.81 and PTSD (post-traumatic stress disorder) F43.10 [facility] [place] [address] [id number] [place] [address] 55241- 1527 Nov, PTSD (post-traumatic stress disorder) F43.10 ; Panic disorder with agoraphobia F40.01 ; Epilepsy G40.909 and Moderate depressed bipolar I disorder F31.32 [facility] [address] [id number] [place] [address] 58104- 5152 Nov, [facility] [place] [address] 63807- 2633 Nov, [facility] [place] [address] [address] [id number] [place] [address] 85181- 8741 Oct, [facility] [place] [address] [address] [id number] [place] [address] 18738- 3704 Oct, Generalized anxiety disorder F41.1 ; Major depression, recurrent F33.9 and PTSD (post-traumatic stress disorder) F43.10 [facility] [place] [address] [address] [id number] [place] [address] 42558- 8008 Oct, Elevated fasting glucose R73.01 [facility] [place] [address] [address] [id number] [place] [address] 29541- 3375 Oct, Elevated fasting glucose R73.01 [facility] [place] [address] [address] [id number] [place] [address] 85795- 6020 17 Oct, 2015 History of COPD Z87.09 [facility] [address] [id number] [place] [address] 69250- 2862 Oct, General medical exam Z00.00 ; History of hypertension Z86.79 ; History of hypothyroidism Z86.39 ; History of hepatitis Z86.19 ; History of high cholesterol Z86.39 and History of seizures Z87.898 [facility] [address] [address]- 3530 Oct, General medical exam Z00.00 ; History of hypertension Z86.79 ; History of hypothyroidism Z86.39 ; Bipolar 2 disorder F31.81 ; PTSD ( post-traumatic stress disorder) F43.10 ; History of hepatitis Z86.19 ; History of high cholesterol Z86.39 ; History of anxiety Z86.59 ; History of seizures Z87.898 ; History of OR (myocardial infarction) I25.2 and History of COPD Z87.09 [facility] [address] [address]- 9413 Oct, Generalized anxiety disorder F41.1 ; Depression F32.9 and PTSD (post-traumatic stress disorder) F43.10 [facility] [address] [address]- 9360 Jan, [facility] [address] [address]- 5821 Jan, [facility] [address] [address]- 4498 Jun, [facility] [address] [place] [id number] Jun, [facility] [address] [address]- 7195 May, [facility] [address] [address] 2540 May, [facility] [address] [id number] May, [facility] [address] [address]- 2546 May, [place] [address] [place] [id number] May, [facility] [address] [facility] [id number] [address]- 6492 May, IMMUNIZATIONS No Known Immunizations SOCIAL HISTORY Never Assessed REASON FOR VISIT Controlled Med Refill 06/30/18 PLAN OF CARE VITAL SIGNS MEDICATIONS Medication Instructions Dosage Frequency Start Date End Date Duration Status [place] 10-325 MG Orally 3 times a day 1 tablet as needed 8h Jun, 28 days Active Wellbutrin SR 150 MG Orally Twice a day 1 tablet 12h 30 days Active Ventolin HFA 108 (90 Base) MCG/ACT Inhalation every 6 hrs 2 puffs as needed 6h Active NovoLog Flexpen 100 UNIT/ML Subcutaneous 3 times a day Inject 30 units 8h Jun, 30 days Active RESULTS No Results PROCEDURES No Known procedures INSTRUCTIONS MEDICATIONS ADMINISTERED No Known Medications MEDICAL (GENERAL) HISTORY Type Description Date Medical History Hypothyroidism Medical History High cholesterol Medical History Hypertension Medical History Brain seizure Medical History Asthma Medical History COPD Medical History Hep C -2005 Medical History OR x 2 last in 2009 Medical History PTSD (post-traumatic stress disorder) Medical History Colon Cancer 2016 Medical History diabites II Surgical History tonsillectomy 1985 Surgical History partial hysterectomy 2004 Surgical History appendectomy 2004 Hospitalization History Surgery(s) only Hospitalization History pneumonia x3 days Hospitalization History Heart cath with stint 05/15/2016 Hospitalization History Diverticulitis, N/V-[facility] 01/28/17
--- OUTSIDE RECORDS SUMMARY | 2019-01-26 07:16 | XMS REPORT ---
Author Author FRANK LUNA Organization [facility] Address [address] [place] [address] Care Team Providers Care Garbage Man Name Role Phone FRANK LUNA Unavailable PROBLEMS Type Condition ICD9-CM Code ZEZ39-CJ Code Onset Dates Condition Status SNOMED Code Problem OAB (overactive bladder) N32.81 Active 075808165 Problem Epilepsy G40.909 Active 80225387 Problem Cervicalgia M54.2 Active 44621209 Problem Other chronic pain G89.29 Active 74554732 Problem Tobacco abuse Z72.0 Active 13014029 Problem Lumbago M54.5 Active 582688957 Problem Hepatitis C B19.20 Active 44093696 Problem COPD (chronic obstructive pulmonary disease) J44.9 Active 29011353 Problem Diabetes E11.9 Active 25991369 Problem Bipolar I disorder with duy F31.10 Active 06450978 Problem Type 2 diabetes mellitus without complications E11.9 Active 412294886 Problem Stress incontinence of urine N39.3 Active 76524146 Problem Bilateral claudication of lower limb I73.9 Active 210374350 Problem Seasonal allergic rhinitis due to other allergic trigger J30.89 Active 602922783 Problem Hyperlipidemia, unspecified hyperlipidemia type E78.5 Active 81054521 Problem Hypertension, unspecified type I10 Active 50583733 Problem Chronic tension-type headache, not intractable G44.229 Active 976975865 Problem 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 mellitus without complication, without long -term current use of insulin E11.9 Active 961082946 Problem Type 2 diabetes mellitus with hyperglycemia E11.65 Active 260371323 Problem Chronic post-traumatic stress disorder (PTSD) F43.12 Active 053728200 Problem History of hypothyroidism Z86.39 Active 185066997 Problem Hypoglycemia E16.2 Active 356258854 Problem El's esophageal ulceration K22.10 Active 281132854 Problem Bipolar affective disorder, currently depressed, mild F31.31 Active 983081843 Problem Irritable bowel syndrome with diarrhea K58.0 Active 578233229 Problem Stress incontinence N39.3 Active 13550307 Problem History of hypertension Z86.79 Active 663294784 Problem Uncontrolled type 2 diabetes mellitus without complication, without long-term current use of insulin E11.65 Active 969006808 Problem Panic disorder with agoraphobia F40.01 Active 26525643 Problem Type 2 diabetes mellitus with hyperglycemia E11.65 Active 930911258 Problem History of seizures Z87.898 Active 451316558 Problem halfway 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 Active 941433040 Problem History of NV (myocardial infarction) I25.2 Active 098288153 Problem Mood disorder F39 Active 44851239 Problem Bipolar 2 disorder F31.81 Active 84633120 Problem Gastritis and duodenitis K29.90 Active 271920193 Problem History of high cholesterol Z86.39 Active 028193089 Problem Bipolar I disorder with mood-congruent psychotic features F31.9 Active 100856622 Problem Hypertension, benign I10 Active 15929399 Problem Primary insomnia F51.01 Active 0953496 ALLERGIES Substance Reaction Event Type Date Status Penicillin V Potassium Unknown Drug Allergy Jun, Active Metformin HCl diarrhea Drug Allergy Jun, Active Macrobid stomach upset Drug Allergy Jun, Active Iodine anaphylaxis Drug Allergy Jun, Active Fentanyl halucinations/insomnia Drug Allergy Jun, Active ENCOUNTERS Encounter Location Date Diagnosis [facility] [id number] [place] [address] 13593- 9444 Nov, [facility] [id number] [place] [address] 05423- 9361 Jul, [facility] [id number] [place] [address] 22659- 1017 24 Jul, 2018 [facility] [id number] [place] [address] 73123- 6331 17 Jul, 2018 [place] [id number] [place] [address] 08025- 9408 13 Jul, 2018 Bipolar 2 disorder F31.81 ; Panic disorder with agoraphobia F40.01 and Chronic post-traumatic stress disorder (PTSD) F43.12 [facility] [id number] [address] 3002 Jun, [facility] [address] [address] 2867 Jun, [facility] [id number] [place] [address] 14154- 0157 Jun, Lumbago M54.5 [facility] [id number] [place] [address] 20706- 6971 Jun, Type 2 diabetes mellitus with hyperglycemia E11.65 [facility] [id number] [place] [address] 80555- 7952 Jun, [facility] [id number] [place] [address] 32733- 6754 Jun, Type 2 diabetes mellitus with hyperglycemia E11.65 ; El 's esophageal ulceration K22.10 and Lumbago M54.5 [facility] [address] [place] [address] 44450- 2642 Jun, Type 2 diabetes mellitus with hyperglycemia E11.65 [facility] [address] [address] 5636 Jun, [facility] [id number] [place] [address] 05722- 8633 Jun, [facility] [address] [address] 1433 Jun, Bipolar affective disorder, currently depressed, mild F31.31 ; Chronic post-traumatic stress disorder (PTSD) F43.12 and Panic disorder with agoraphobia F40.01 [facility] [address] [address] 4657 Jun, [facility] [id number] [place] [address] 75600- 3117 Jun, [facility] [address] [address] 3667 Jun, Type 2 diabetes mellitus with hyperglycemia E11.65 [facility] [address] [facility] [id number] [place] [address] Jun, Uncontrolled type 2 diabetes mellitus with hyperglycemia E11.65 [facility] [address] [facility] [id number] [place] [address]- 0086 Jun, [facility] [address] [facility] [id number] [place] [address]- 0725 May, Lumbago M54.5 [facility] [address] [facility] [id number] [place] [id number] May, [facility] [address] [facility] [id number] [place] [address]- 9369 May, [facility] [address] [facility] [id number] [place] [address]- 2296 May, [facility] [address] [address]- 3372 May, [facility] [address] [facility] [id number] [address] 7476 May, [facility] [id number] [address]- 3052 May, [facility] [id number] [address]- 3544 May, [facility] [address] [address]- 6843 May, Lumbago M54.5 [facility] [address] [facility] [id number] [address] 9745 May, [facility] [id number] [address] [address], [address] of the chest R93.8 [facility] [id number] [address] 4024 Apr, Bipolar 2 disorder F31.81 ; Chronic post-traumatic stress disorder (PTSD) F43.12 and Panic disorder with agoraphobia F40.01 [place] [id number] [place] [address] 45909- 8192 20 Apr, [address] of the chest R93.8 [place] [id number] [place] [address] 54923- 6567 20 Apr, [address] of the chest R93.8 [place] [address] 46443- 9013 14 Apr, 2018 [place] [id number] [place] [address] 10778- 2444 Apr, Type 2 diabetes mellitus with hyperglycemia E11.65 [place] [address] 61842- 2612 Apr, 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 mellitus without complication, without long-term current use of insulin E11.9 ; Watery eyes H04.203 ; Low back pain M54.5 ; Other chronic pain G89.29 ; Chronic tension-type headache, not intractable G44.229 ; Uncontrolled type 2 diabetes mellitus without complication , without long-term current use of insulin E11.65 and Bronchitis J40 [place] [address] 24184- 2837 Apr, [place] [id number] [place] [address] 42344- 3309 Apr, Lumbago M54.5 [place] [id number] [place] [address] 47995- 9828 March, [facility] [id number] [place] [address] 55401 -6733 March, Cough R05 ; Pneumonia due to infectious organism, unspecified laterality, unspecified part of lung J18.9 and Non-intractable vomiting with nausea, unspecified vomiting type R11.2 [place] [id number] [place] [address] 54317- 7100 March, Bronchitis J40 [place] [id number] [address]- 7760 March, [facility] [id number] [place] [address] 68928- 2277 March, El's esophageal ulceration K22.10 and Type 2 diabetes mellitus with hyperglycemia E11.65 [facility] [id number] [place] [address] 19011- 4606 March, Panic disorder with agoraphobia F40.01 ; Chronic post- traumatic stress disorder (PTSD) F43.12 and Bipolar 2 disorder F31.81 [facility] [id number] [place] [address] 88190- 9580 March, Type 2 diabetes mellitus with hyperglycemia E11.65 [facility] [id number] [place] [address] 55946- 4140 March, [facility] [id number] [place] [address] 57007- 0628 March, Lumbago M54.5 [facility] [id number] [place] [address] 66422- 1423 March, [facility] [id number] [place] [address] 84583- 2308 March, Irritable bowel syndrome with diarrhea K58.0 ; Primary insomnia F51.01 ; Type 2 diabetes mellitus with hyperglycemia E11.65 and oysterman 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 [facility] [id number] [place] [address] 13798- 1854 March, [facility] [id number] [place] [address] 12436- 1282 Jan, [facility] [id number] [place] [address] 63686- 9371 Jan, [facility] [id number] [place] [address] 19518- 9742 Jan, [facility] [id number] [place] [address] 25988- 1158 Jan, [facility] [id number] [place] [address] 67381- 2227 Jan, Dizziness R42 [place] [id number] [place] [address] 688895- 2143 Jan, Bipolar affective disorder, currently depressed, mild F31.31 ; Panic disorder with agoraphobia F40.01 and Chronic post-traumatic stress disorder (PTSD) F43.12 [place] [id number] [place] [address] 86155- 8093 Jan, Dizziness R42 [place] [address] 71657- 5175 Jan, Chest pain, unspecified type R07.9 ; Exertional dyspnea R06.09 ; Hypertension, unspecified type I10 and Hyperlipidemia, unspecified hyperlipidemia type E78.5 [place] [address] 76287- 4388 Jan, [place] [id number] [place] [address] 44048- 6189 Jan, Lumbago M54.5 [place] [address] 17308- 8434 Jan, El's esophageal ulceration K22.10 ; Blister (nonthermal ) of oral cavity, initial encounter S00.522A ; Local infection of the skin and subcutaneous tissue, unspecified L08.9 ; Type 2 diabetes mellitus with hyperglycemia E11.65 ; oysterman 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 and Stress incontinence N39.3 [place] [id number] [place] [address] 05130- 3211 Dec, [facility] [address] 69026- 4141 Dec, [facility] [id number] [place] [address] 73952- 7762 Dec, [facility] [address] [address] 16 Dec, 2017 Dental examination Z01.20 [facility] [id number] [place] [address] 36492- 8018 15 Dec, 2017 Acute pain of right knee M25.561 [facility] [id number] [place] [address] 95857- 8469 14 Dec, 2017 [facility] [id number] [place] [address] 70741- 6828 14 Dec, 2017 [facility] [id number] [place] [address] 76672- 7066 14 Dec, 2017 Lumbago M54.5 ; Acute pain of right knee M25.561 and Seasonal allergic rhinitis due to other allergic trigger J30.89 [facility] [id number] [place] [address] 61532- 0870 12 Dec, 2017 Type 2 diabetes mellitus with hyperglycemia E11.65 [place] [id number] [place] [address] 46844- 5464 08 Dec, 2017 [facility] [id number] [place] [address] 36578- 9705 08 Dec, 2017 [facility] [id number] [place] [address] 14285- 7136 23 Dec, 2017 [facility] [id number] [place] [address] 98088- 9627 15 Dec, 2017 [facility] [id number] [place] [address] 79117- 1660 15 Dec, 2017 Chronic post-traumatic stress disorder (PTSD) F43.12 and Panic disorder with agoraphobia F40.01 [facility] [address] [place] [address] 54761- 4566 13 Dec, 2017 Low back pain M54.5 [facility] [id number] [place] [address] 10442- 8144 12 Dec, 2017 Type 2 diabetes mellitus with hyperglycemia E11.65 ; oysterman 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 ; Low back pain M54.5 ; Other chronic pain G89.29 and Encounter for therapeutic drug level monitoring Z51.81 [facility] [id number] [place] [address] 48223- 0141 09 Dec, 2017 Coughing R05 [facility] [id number] [place] [address] 75183- 5486 09 Dec, 2017 [facility] [address] [id number] 07 Dec, 2017 Dental examination Z01.20 [place] [address] 63506- 4924 Nov, Type 2 diabetes mellitus without complications E11.9 and Encounter for therapeutic drug level monitoring Z51.81 [place] [id number] [place] [address] 02575- 0473 Nov, [place] [id number] [place] [address] 13718- 3033 Oct, Type 2 diabetes mellitus without complications E11.9 [place] [id number] [place] [address] 99551- 8362 Oct, Type 2 diabetes mellitus with hyperglycemia E11.65 [place] [id number] [place] [address] 12292- 7644 Aug, Type 2 diabetes mellitus without complications E11.9 [place] [id number] [place] [address] 19356- 8971 Aug, Type 2 diabetes mellitus without complications E11.9 ; Hypoglycemia E16.2 ; Lumbago M54.5 ; Stress incontinence of urine N39.3 and History of NV (myocardial infarction) I25.2 [place] [id number] [place] [address] 79989- 5720 Jun, [place] [id number] [place] [address] 19040- 5128 May, [facility] [address] [address]- 4177 Apr, Panic disorder with agoraphobia F40.01 [facility] [id number] [place] [address] 00499- 1358 Apr, Panic disorder with agoraphobia F40.01 [facility] [id number] [place] [address] 91662- 7922 Apr, [facility] [id number] [place] [address] 51943- 7492 March, Other chronic pain G89.29 [facility] [id number] [place] [address] 70520- 0326 March, [facility] [id number] [place] [address] 97208- 9235 March, [facility] [id number] [place] [address] 60660- 2327 March, [facility] [id number] [place] [address] 46833- 3332 March, [facility] [id number] [place] [address] 30283- 4819 March, Type 2 diabetes mellitus without complications E11.9 [facility] [address] [address]- 4553 March, Diarrhea, unspecified type R19.7 [facility] [address] [address]- 8915 March, Bipolar 2 disorder F31.81 ; Chronic post-traumatic stress disorder (PTSD) F43.12 and Type 2 diabetes mellitus with hyperglycemia E11.65 [facility] [address] [address]- 9894 March, [facility] [address] [address]- 0328 March, [facility] [address] [address]- 2208 March, Hypertension, benign I10 ; Type 2 diabetes mellitus with hyperglycemia E11.65 ; Hepatitis C B19.20 ; Gastritis and duodenitis K29.90 and Dysuria R30.0 [facility] [id number] [place] [address] 50627- 2424 March, Hypertension, benign I10 ; Type 2 diabetes mellitus with hyperglycemia E11.65 ; Hepatitis C B19.20 ; Gastritis and duodenitis K29.90 and Dysuria R30.0 [facility] [address] [place] [address] 95549- 5849 March, Panic disorder with agoraphobia F40.01 ; Chronic post- traumatic stress disorder (PTSD) F43.12 ; Epilepsy G40.909 and Bipolar I disorder with mood-congruent psychotic features F31.9 [place] [id number] [place] [address] 62617- 2355 March, [place] [id number] [place] [address] 23307- 4485 March, Type 2 diabetes mellitus with hyperglycemia E11.65 [place] [id number] [place] [address] 36000- 2087 18 Jan, 2017 Bipolar I disorder with duy F31.10 [place] [address] [place] [address] 92931- 9564 Jan, Bipolar 2 disorder F31.81 ; Chronic post-traumatic stress disorder (PTSD) F43.12 and Type 2 diabetes mellitus with hyperglycemia E11.65 [place] [id number] [address]- 7357 Jan, [place] [id number] [place] [address] 58951- 1715 Jan, [facility] [id number] [place] [address] 61892- 7750 Jan, Panic disorder with agoraphobia F40.01 [facility] [address] [place] [address] 85092- 5817 13 Jan, 2017 Panic disorder with agoraphobia F40.01 ; Bipolar I disorder with mood-congruent psychotic features F31.9 ; Chronic post-traumatic stress disorder (PTSD) F43.12 and Epilepsy G40.909 [facility] [id number] [place] [address] 60586- 9209 Jan, [facility] [id number] [place] [address] 31805- 9826 Jan, [facility] [id number] [place] [address] 72870- 1195 10 Jan, 2017 Type 2 diabetes mellitus without complications E11.9 and Hypoglycemia E16.2 [place] [id number] [place] [address] 35612- 9356 07 Jan, 2017 Type 2 diabetes mellitus without complications E11.9 ; Primary insomnia F51.01 and Hypertension, benign I10 [facility] [id number] [place] [address] 89945- 6017 06 Jan, 2017 [facility] [address] [id number] 05 Jan, 2017 [facility] [id number] [place] [address] 76443- 9432 31 Dec, 2016 Type 2 diabetes mellitus with hyperglycemia E11.65 [facility] [id number] [place] [address] 39370- 8025 Dec, [facility] [id number] [place] [address] 67386- 9375 Dec, Bipolar 2 disorder F31.81 ; Panic disorder with agoraphobia F40.01 ; Chronic post-traumatic stress disorder (PTSD) F43.12 and Epilepsy G40.909 [facility] [id number] [place] [address] 66749- 3665 Dec, [facility] [id number] [place] [address] [id number]- [phone] Dec, [facility] [id number] [place] [address] [id number]- [phone] Dec, Bipolar 2 disorder F31.81 ; Panic disorder with agoraphobia F40.01 ; Chronic post-traumatic stress disorder (PTSD) F43.12 and Epilepsy G40.909 [facility] [id number] [place] [address] [id number]- [phone] Dec, [facility] [id number] [place] [address] [id number]- [phone] Dec, [facility] [id number] [place] [address] [phone]- [phone] Dec, [place] [facility] [id number] [place] [address] 58576- [phone] Dec, Type 2 diabetes mellitus with hyperglycemia E11.65 ; oysterman 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 and Lumbago M54.5 [facility] [facility] [id number] [place] [address] [phone]- [phone] Dec, [facility] [facility] [id number] [place] [address] [phone]- [phone] Dec, [facility] [id number] [place] [address] [phone]- [phone] Dec, [facility] [id number] [place] [address] [phone] -[phone] Dec, Pain of left leg M79.605 and Pain in right leg M79.604 [facility] [id number] [place] [address] [phone]- [phone] Dec, [facility] [id number] [place] [address] 93684- 8766 Dec, Type 2 diabetes mellitus with hyperglycemia E11.65 [place] [id number] [place] [address] 95301- [phone] Dec, [place] [facility] [id number] [place] [address] 41305- 4122 Dec, Type 2 diabetes mellitus with hyperglycemia E11.65 ; oysterman 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 ; Vagina, candidiasis B37.3 and Other chronic pain G89.29 [place] [address] 55809- 2789 Nov, Panic disorder with agoraphobia F40.01 [place] [address] 73481- 2221 Nov, [place] [address] 23400- 8883 Nov, [place] [address] 74291- 2226 Nov, Hypoglycemia E16.2 [place] [address] 17792- 9047 Nov, [place] [address] 82839- 0661 Nov, [place] [address] 08761- 8544 Nov, [place] [address] [place] [id number] [place] [address] 63321- 7533 Nov, Type 2 diabetes mellitus with hyperglycemia E11.65 and halfway 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 [place] [address] [place] [id number] [place] [address] 53101- 5340 Nov, Panic disorder with agoraphobia F40.01 ; Bipolar 2 disorder F31.81 ; Chronic post-traumatic stress disorder (PTSD) F43.12 and Epilepsy G40.909 [place] [address] [place] [id number] [place] [address] 83493- 7795 Nov, Panic disorder with agoraphobia F40.01 [place] [address] [place] [id number] [place] [address] 22780- 3825 16 Oct, 2016 [facility] [id number] [place] [address] 37985- 1223 Oct, [facility] [address] [place] [id number] [place] [address] 28427- 9189 Oct, Bipolar 2 disorder F31.81 ; Panic disorder with agoraphobia F40.01 and Mood disorder F39 [facility] [address] [place] [id number] [place] [address] 16094- 6470 Oct, Diabetes E11.9 ; Type 2 diabetes mellitus with hyperglycemia E11.65 and halfway 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 [facility] [address] [place] [id number] [place] [address] 62460- 1757 Oct, [facility] [address] [place] [id number] [place] [address] 11136- 4540 Sep, [facility] [address] [place] [id number] [place] [address] 27788- 9274 Sep, Bipolar 2 disorder F31.81 and Mood disorder F39 [facility] [address] [place] [id number] [place] [address] 94646- 1940 Sep, [facility] [address] [place] [id number] [place] [address] 90172- 7768 Sep, Uncontrolled type 2 diabetes mellitus without complication, without long-term current use of insulin E11.65 [facility] [id number] [place] [address] 30136- 3248 Sep, [facility] [id number] [place] [address] 65655- 2622 Sep, [facility] [address] [place] [id number] [place] [address] 45575- 5725 Sep, [facility] [address] [place] [id number] [place] [address] 52448- 2484 Sep, [facility] [id number] [place] [address] 26050- 6569 Sep, Bipolar 2 disorder F31.81 ; Chronic post-traumatic stress disorder (PTSD) F43.12 ; Panic disorder with agoraphobia F40.01 and Epilepsy G40.909 [facility] [address] [place] [id number] [place] [address] 14269- 3876 Sep, Bipolar 2 disorder F31.81 ; PTSD (post-traumatic stress disorder) F43.10 and Panic disorder with agoraphobia F40.01 [facility] [address] 02738- 6216 Sep, [facility] [address] 02645- 7456 Aug, History of seizures Z87.898 ; Panic disorder with agoraphobia F40.01 and Bipolar 2 disorder F31.81 [facility] [address] 32411- 8239 Aug, [facility] [address] 22264- 9942 Aug, [facility] [address] 36365- 3319 Aug, [facility] [address] 26755- 4267 Aug, [facility] [address] [place] [id number] [place] [address] 90995- 0761 Aug, [facility] [address] 37710- 8780 Aug, [facility] [address] 01096- 4236 Aug, Hypoglycemia E16.2 and Bilateral impacted cerumen H61.23 [facility] [address] [place] [id number] [place] [address] 91712- 1890 Aug, [facility] [address] 07252- 1837 Jul, [facility] [id number] [place] [address] 42190- 7218 Jul, [facility] [address] [place] [id number] [place] [address] 01066- 6980 Jul, Bipolar 2 disorder F31.81 ; Panic disorder with agoraphobia F40.01 ; PTSD (post-traumatic stress disorder) F43.10 and Epilepsy G40.909 [facility] [address] [place] [id number] [place] [address] 84586- 1962 Jul, [facility] [address] [place] [id number] [place] [address] 47100- 2734 Jul, Type 2 diabetes mellitus without complications E11.9 and Coughing R05 [facility] [address] [place] [id number] [place] [address] 12130- 4897 Jul, [facility] [address] [place] [id number] [place] [address] 34859- 9255 Jun, [facility] [address] [place] [id number] [place] [address] 28805- 0849 Jun, Bipolar 2 disorder F31.81 ; PTSD (post-traumatic stress disorder) F43.10 and Panic disorder with agoraphobia F40.01 [facility] [id number] [place] [address] 66186- 0538 Jun, [facility] [address] [place] [id number] [place] [address] 83071- 1298 Jun, [facility] [address] [place] [id number] [place] [address] 87325- 2565 Jun, [facility] [address] [place] [id number] [place] [address] 14948- 0474 Jun, Type 2 diabetes mellitus without complications E11.9 and COPD (chronic obstructive pulmonary disease) J44.9 [facility] [address] [id number] May, Dental examination Z01.20 and Dental caries K02.9 [place] [address] [place] [id number] [place] [address] 46477- 2022 May, Bipolar 2 disorder F31.81 ; PTSD (post-traumatic stress disorder) F43.10 and Panic disorder with agoraphobia F40.01 [place] [address] [place] [id number] [place] [address] 38379- 0801 May, Lumbago with sciatica, right side M54.41 ; Other chronic pain G89.29 and Uncontrolled type 2 diabetes mellitus without complication, without long-term current use of insulin E11.65 [place] [address] [place] [id number] [place] [address] 03116- 6463 May, Chronic bronchitis, unspecified chronic bronchitis type J42 [place] [address] [place] [id number] [place] [address] 13953- 1714 May, [place] [address] 17538- 3408 May, [place] [address] [place] [id number] [place] [address] 24558- 1342 May, Chest pain, unspecified type R07.9 ; Tobacco use Z72.0 ; Type 2 diabetes mellitus without complications E11.9 ; Essential hypertension I10 ; Hyperlipidemia, unspecified hyperlipidemia type E78.5 ; Obesity (BMI 30- 39.9) E66.9 ; History of hypothyroidism Z86.39 ; Chronic obstructive pulmonary disease, unspecified COPD type J44.9 ; Anxiety F41.9 ; Bilateral claudication of lower limb I73.9 and Bipolar 2 disorder F31.81 [place] [address] [place] [id number] [place] [address] 23794- 2432 May, Bipolar 2 disorder F31.81 ; Panic disorder with agoraphobia F40.01 and Tobacco abuse Z72.0 [place] [address] [place] [id number] [place] [address] 84016- 6395 Apr, [place] [address] [place] [id number] [place] [address] 17694- 5732 Apr, [facility] [address] [place] [id number] [place] [address] 19357- 3639 Apr, [place] [address] [place] [id number] [place] [address] 90924- 5738 Apr, Bipolar 2 disorder F31.81 ; Panic disorder with agoraphobia F40.01 and PTSD (post-traumatic stress disorder) F43.10 [place] [address] [place] [id number] [place] [address] 07784- 1314 Apr, Chronic bronchitis, unspecified chronic bronchitis type J42 ; Cervical neuritis M54.12 and Thoracic neuritis M54.14 [place] [address] [place] [id number] [place] [address] 44442- 9858 Apr, [place] [address] [place] [id number] [place] [address] 30744- 9865 Apr, Cervicalgia M54.2 [place] [address] 50375- 8278 Apr, Bipolar 2 disorder F31.81 ; Panic disorder with agoraphobia F40.01 and PTSD (post-traumatic stress disorder) F43.10 [facility] [address] [place] [id number] [place] [address] 98996 -0701 Apr, [facility] [address] [place] [id number] [place] [address] 74323 -4618 Apr, Cough R05 and Tobacco dependence F17.200 [place] [address] [place] [id number] [place] [address] 28759- 5777 Apr, [place] [address] [place] [id number] [place] [address] 17132- 2907 Apr, [place] [address] [place] [id number] [place] [address] 20023- 2168 March, Bipolar 2 disorder F31.81 ; Panic disorder with agoraphobia F40.01 and Generalized anxiety disorder F41.1 [place] [address] [place] [id number] [place] [address] 49088- 1659 March, Closed displaced fracture of fifth metatarsal bone of right foot with routine healing, subsequent encounter S92.351D [place] [address] [place] [id number] [place] [address] 91563- 0769 March, Bronchitis J40 [place] [address] [place] [id number] [place] [address] 51594- 2445 March, [place] [address] [place] [id number] [place] [address] 19653- 5320 March, [place] [address] [place] [id number] [place] [address] 05581- 6855 March, Foot pain, right M79.671 ; Cervicalgia M54.2 and 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 mellitus without complication, 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 [place] [address] [place] [id number] [place] [address] 08128- 9399 March, Fracture of fifth metatarsal bone of right foot S92.351A [place] [address] [place] [id number] [place] [address] 38178- 7779 March, [place] [address] [place] [id number] [place] [address] 53982- 9249 Jan, Fracture of fifth metatarsal bone of right foot S92.351A [place] [address] [place] [address] 16126- 8496 Jan, Bipolar 2 disorder F31.81 ; PTSD (post-traumatic stress disorder) F43.10 ; Panic disorder with agoraphobia F40.01 and Epilepsy G40.909 [place] [address] [place] [id number] [place] [address] 06083- 5726 Jan, History of NV (myocardial infarction) I25.2 and History of high cholesterol Z86.39 [place] [address] [place] [address] 85572- 5743 Jan, Bipolar 2 disorder F31.81 ; Panic disorder with agoraphobia F40.01 ; Tobacco abuse Z72.0 and PTSD (post-traumatic stress disorder) F43.10 [place] [address] [place] [id number] [place] [address] 53614- 8799 Jan, Fracture of fifth metatarsal bone of right foot S92.351A [place] [address] 13274- 5289 Jan, [place] [address] 51681- 5096 Jan, History of high cholesterol Z86.39 [place] [address] 339371- 5066 Jan, History of NV (myocardial infarction) I25.2 [place] [address] 92269- 2398 Jan, [place] [address] 64017- 0009 Dec, Back pain M54.9 ; Diabetes E11.9 ; Right knee pain M25.561 and Chest pain R07.9 [place] [address] 49319- 7349 Dec, [place] [address] [place] [id number] [place] [address] 26444- 2052 Dec, [place] [address] 57496- 9246 Dec, Cervicalgia M54.2 [place] [address] 99332- 4730 17 Jan, 2016 Bipolar 2 disorder F31.81 ; PTSD (post-traumatic stress disorder) F43.10 ; Panic disorder with agoraphobia F40.01 and Epilepsy G40.909 [place] [address] [place] [id number] [place] [address] 94757- 7417 08 Jan, 2016 Bipolar 2 disorder F31.81 ; PTSD (post-traumatic stress disorder) F43.10 and Panic disorder with agoraphobia F40.01 [facility] [address] [place] [id number] [place] [address] 72685- 1102 Dec, Diabetes E11.9 [facility] [address] [place] [id number] [place] [address] 84752- 9362 Dec, [facility] [address] [place] [id number] [place] [address] 10142- 5830 Dec, Other chronic pain G89.29 ; Hepatitis C B19.20 and History of seizures Z87.898 [facility] [address] [place] [id number] [place] [address] 41672- 8346 24 Dec, 2015 [facility] [address] [place] [id number] [place] [address] 63577- 3368 Dec, Bipolar 2 disorder F31.81 and Other chronic pain G89.29 [facility] [address] [place] [id number] [place] [address] 38713- 8756 Dec, Cervicalgia M54.2 and Diabetes E11.9 [facility] [address] [place] [id number] [place] [address] 24056- 1939 Dec, [facility] [address] [place] [id number] [place] [address] 20960- 4190 18 Dec, 2015 [facility] [address] [place] [id number] [place] [address] 76360- 0928 16 Dec, 2015 [facility] [address] [place] [id number] [place] [address] 05857- 1564 16 Dec, 2015 [facility] [address] [place] [id number] [place] [address] 46290- 5268 12 Dec, 2015 Type 2 diabetes mellitus without complications E11.9 [facility] [address] [place] [id number] [place] [address] 27898- 6207 10 Dec, 2015 [facility] [address] [place] [id number] [place] [address] 32242- 2719 09 Dec, 2015 History of seizures Z87.898 and Hepatitis C B19.20 [place] [address] [place] [id number] [place] [address] 16316- 0729 Dec, Hepatitis C B19.20 [place] [address] 02121- 4153 Dec, [place] [address] 17148- 0128 Dec, Cervicalgia M54.2 ; COPD (chronic obstructive pulmonary disease) J44.9 and Hepatitis C B19.[address] 04259- 8806 Dec, Bipolar 2 disorder F31.81 ; History of hypertension Z86.79 ; History of anxiety Z86.59 ; Panic disorder with agoraphobia F40.01 and Epilepsy G40.[address] 56071- 8938 Nov, [place] [address] 35156- 0701 Nov, [address] 10423- 6990 Nov, History of seizures Z87.898 ; OAB (overactive bladder) N32.81 ; Lumbago M54.5 ; Other chronic pain G89.29 ; Cervicalgia M54.2 ; Tobacco abuse Z72.0 ; Tobacco abuse counseling Z71.6 and Impaired fasting glucose R73.01 [place] [address] [place] [id number] [place] [address] 90199- 0735 Nov, Bipolar 2 disorder F31.81 ; PTSD (post-traumatic stress disorder) F43.10 ; History of anxiety Z86.59 ; History of COPD Z87.09 ; Panic disorder with agoraphobia F40.01 and Moderate depressed bipolar I disorder F31.[address] 56887- 1669 Nov, PTSD (post-traumatic stress disorder) F43.10 [facility] [address] [id number] 11 Nov, 2015 Dental examination Z01.20 and Dental caries K02.9 [facility] [address] [place] [address] 43494- 8829 08 Nov, 2015 History of hypertension Z86.79 ; History of hypothyroidism Z86.39 ; History of high cholesterol Z86.39 ; History of COPD Z87.09 and Overactive bladder N32.81 [facility] [address] [place] [address] 54630- 5811 Nov, Bipolar 2 disorder F31.81 and PTSD (post-traumatic stress disorder) F43.10 [place] [address] [place] [address] 40402- 4239 Nov, PTSD (post-traumatic stress disorder) F43.10 ; Panic disorder with agoraphobia F40.01 ; Epilepsy G40.909 and Moderate depressed bipolar I disorder F31.32 [place] [address] [place] [address] 18356- 5639 Nov, [place] [address] [place] [id number] [place] [address] 22766- 3262 Nov, [place] [id number] [place] [address] 89522- 0179 Oct, [place] [address] [place] [id number] [place] [address] 17082- 3171 Oct, Generalized anxiety disorder F41.1 ; Major depression, recurrent F33.9 and PTSD (post-traumatic stress disorder) F43.10 [place] [address] [place] [id number] [place] [address] 01355- 5955 Oct, Elevated fasting glucose R73.01 [place] [address] [place] [address] 11754- 8996 Oct, Elevated fasting glucose R73.01 [place] [address] [address]- 8673 17 Oct, 2015 History of COPD Z87.09 [place] [address] [place] [address] 84512- 9546 15 Oct, 2015 General medical exam Z00.00 ; History of hypertension Z86.79 ; History of hypothyroidism Z86.39 ; History of hepatitis Z86.19 ; History of high cholesterol Z86.39 and History of seizures Z87.898 [place] [address] [address]- 2817 10 Oct, 2015 General medical exam Z00.00 ; History of hypertension Z86.79 ; History of hypothyroidism Z86.39 ; Bipolar 2 disorder F31.81 ; PTSD ( post-traumatic stress disorder) F43.10 ; History of hepatitis Z86.19 ; History of high cholesterol Z86.39 ; History of anxiety Z86.59 ; History of seizures Z87.898 ; History of NV (myocardial infarction) I25.2 and History of COPD Z87.09 [place] [address] [address]- 8568 Oct, Generalized anxiety disorder F41.1 ; Depression F32.9 and PTSD (post-traumatic stress disorder) F43.10 [place] [address] [address]- 2817 Jan, [address] [address]- 1489 Jan, [place] [address] [address]- 7774 Jun, [facility] [address] [place] [id number] Jun, [place] [id number] [place] [address] 50135- 7556 May, [place] [address] [address]- 9749 May, [facility] [address] [place] [id number] May, [facility] [address] [facility] [id number] [place] [address]- 1469 May, [facility] [address] [place] [id number] May, [facility] [address] [facility] [id number] [place] [address]- 2106 May, IMMUNIZATIONS No Known Immunizations SOCIAL HISTORY Never Assessed REASON FOR VISIT f/u Nancy Pt would not review meds with this nurse. PLAN OF CARE Activity Details Follow Up 4 Weeks Reason: VITAL SIGNS Height 62 in 2018-06-15 Weight 162.5 lbs 2018-06-15 Heart Rate 96 bpm 2018-06-15 Respiratory Rate 20 2018-06-15 BMI 29.72 kg/m2 2018-06-15 Blood pressure systolic 112 mmHg 2018-06-15 Blood pressure diastolic 82 mmHg 2018-06-15 MEDICATIONS Medication Instructions Dosage Frequency Start Date End Date Duration Status Blood Glucose Monitor 1 glucometer test blood sugar Apr, Active Cyclobenzaprine HCl 10 mg Orally Three times a day 1 tablet as needed 8h 30 Active BD Pen Needle Stefanie U/F 32G X 4 MM DX- E11.9 5 times per day as directed Jun, Active Aspirin 81 MG TAKE ONE TABLET BY MOUTH ONCE DAILY 30 Active NovoLog 100 UNIT/ML Flex Pen DX E11.9 3 times a day before meals Inject 30 units Dec, 30 days Active Microlet Lancets - as directed 8h March, Active Insulin Syringe 31G X 5/16 subcutaneously 4 times a day Inject insulin 4 times daily as prescribed 6h Oct, Active Zyprexa 2.5 MG Orally Once a day 1 tablet 24h Active Montelukast Sodium 10 mg Orally Once a day 1 tablet 24h Oct, 30 days Active Cali Contour Next Test - In Vitro 3 times a day as directed 8h March, Active Ventolin HFA 108 (90 Base) MCG/ACT Inhalation every 6 hrs 2 puffs as needed 6h Active Protonix 40 MG Orally Once a day 1 tablet 24h Jan, 30 day(s) Active Lipitor 40 mg Orally Once a day 1 tablet 24h Active Nicoderm CQ 14 MG/24HR Transdermal Once a day 1 patch to skin 24h Apr, Jun, 30 day(s) Not-Taking [place] 10-325 MG Orally 3 times a day 1 tablet as needed 8h May, 28 days Active Blood Glucose Monitor System w/Device DX- E11.9 Test fasting and 2 hours after meal test 3 times per day Dec, Active Cromolyn Sodium 4 % Ophthalmic Four times a day 1 drop into affected eye 6h Apr, Active Nebulizer 1 as directed Apr, Active Amitriptyline HCl 50 MG Orally Once at bedtime for sleep 1 tablet March Active Lisinopril-Hydrochlorothiazide 10-12.5 MG Orally Once a day 1 tablet 24h Jun, 30 day(s) Active Symbicort 160-4.5 MCG/ACT Inhalation Twice a day- rinse mouth and spit after use 2 puffs every day Apr, Active Ditropan XL 10 mg Orally Once a day 1 tablet 24h 30 Active Xyzal 5 MG Orally Once a day 1 tablet in the evening 24h 30 Active Levemir 100 UNIT/ML Flex Pen Subcutaneous 2 times a day Inject 75 units 12h Dec, 30 days Active Minipress 1 MG Orally Once a day for nightmares 2 capsule at bedtime Active Albuterol Sulfate 1.25 MG/3ML USE ONE (1) VIAL PER NEBULIZER FOUR (4) TIMES DAILY NEEDED 25 Active Blood Glucose Test Strip And lancets. DX E11.9 Test fasting and 2 hours after meal test 3 times per day Dec, Active Wellbutrin SR 150 MG Orally Twice a day 1 tablet 12h Active Oxygen Active Atenolol 50 mg Orally Once a day 1 tablet 24h 30 Active Xanax 2 MG Orally 3 times a day and can take 1/2 additional tablet for panic 1 tablet 28 days Active Levothyroxine Sodium 150 MCG Orally Once a day 1 tablet 24h Oct, Active RESULTS No Results PROCEDURES No Known [...]
--- OUTSIDE RECORDS SUMMARY | 2019-01-26 07:17 | XMS REPORT ---
Author Author GERARDO KISER [facility] Address [address] [place] [address] Care Team Providers Care Head Of Digital Name Role Phone MARGI GERARDO Unavailable PROBLEMS Type Condition ICD9-CM Code JPY38-EL Code Onset Dates Condition Status SNOMED Code Problem OAB (overactive bladder) N32.81 Active 449122288 Problem Epilepsy G40.909 Active 90769581 Problem Cervicalgia M54.2 Active 63845540 Problem Other chronic pain G89.29 Active 12941485 Problem Tobacco abuse Z72.0 Active 33440917 Problem Lumbago M54.5 Active 269097893 Problem Hepatitis C B19.20 Active 81061788 Problem COPD (chronic obstructive pulmonary disease) J44.9 Active 19912091 Problem Diabetes E11.9 Active 82772361 Problem Bipolar I disorder with duy F31.10 Active 05529896 Problem Type 2 diabetes mellitus without complications E11.9 Active 989517932 Problem Stress incontinence of urine N39.3 Active 39549103 Problem Bilateral claudication of lower limb I73.9 Active 677505439 Problem Seasonal allergic rhinitis due to other allergic trigger J30.89 Active 368682354 Problem Hyperlipidemia, unspecified hyperlipidemia type E78.5 Active 70573268 Problem Hypertension, unspecified type I10 Active 56221792 Problem Chronic tension-type headache, not intractable G44.229 Active 509563682 Problem 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 mellitus without complication, without long -term current use of insulin E11.9 Active 612112558 Problem Type 2 diabetes mellitus with hyperglycemia E11.65 Active 078714555 Problem Chronic post-traumatic stress disorder (PTSD) F43.12 Active 783059652 Problem History of hypothyroidism Z86.39 Active 903633724 Problem Hypoglycemia E16.2 Active 915436653 Problem El's esophageal ulceration K22.10 Active 499787575 Problem Bipolar affective disorder, currently depressed, mild F31.31 Active 248197667 Problem Irritable bowel syndrome with diarrhea K58.0 Active 077394537 Problem Stress incontinence N39.3 Active 62568428 Problem History of hypertension Z86.79 Active 578476008 Problem Uncontrolled type 2 diabetes mellitus without complication, without long-term current use of insulin E11.65 Active 363196042 Problem Panic disorder with agoraphobia F40.01 Active 68757888 Problem Type 2 diabetes mellitus with hyperglycemia E11.65 Active 331041777 Problem History of seizures Z87.898 Active 622133133 Problem assisted 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 Active 527785689 Problem History of PA (myocardial infarction) I25.2 Active 531917347 Problem Mood disorder F39 Active 46514579 Problem Bipolar 2 disorder F31.81 Active 10841157 Problem Gastritis and duodenitis K29.90 Active 670515662 Problem History of high cholesterol Z86.39 Active 325563650 Problem Bipolar I disorder with mood-congruent psychotic features F31.9 Active 873266198 Problem Hypertension, benign I10 Active 74914170 Problem Primary insomnia F51.01 Active 8730680 ALLERGIES No Information ENCOUNTERS Encounter Location Date Diagnosis [facility] [id number] [place] [address] 78561- 3229 Nov, [facility] [id number] [place] [address] 67543- 0057 Jul, [facility] [id number] [place] [address] 58384- 6497 Jul, [facility] [id number] [place] [address] 45338- 7742 Jul, Bipolar 2 disorder F31.81 ; Panic disorder with agoraphobia F40.01 and Chronic post-traumatic stress disorder (PTSD) F43.12 [facility] [id number] [place] [address] 43357- 5409 Jun, [facility] [address] 39716- 4250 Jun, [facility] [id number] [place] [address] 68036- 7864 Jun, Lumbago M54.5 [facility] [address], [place] [address] 8116 Jun, Type 2 diabetes mellitus with hyperglycemia E11.65 [facility] [id number] [place] [address] 76082- 8058 Jun, [facility] [id number] [place] [address] 11928- 9787 Jun, Type 2 diabetes mellitus with hyperglycemia E11.65 ; El 's esophageal ulceration K22.10 and Lumbago M54.5 [facility] [id number] [place] [address] 09052- 3634 Jun, Type 2 diabetes mellitus with hyperglycemia E11.65 [facility] [id number] [place] [address] 08497- 6502 Jun, [facility] [id number] [place] [address] 40180- 2469 Jun, [facility] [id number] [place] [address] 91638- 3825 Jun, Bipolar affective disorder, currently depressed, mild F31.31 ; Chronic post-traumatic stress disorder (PTSD) F43.12 and Panic disorder with agoraphobia F40.01 [facility] [address] [place] [address] 13260- 5016 Jun, [facility] [address] [place] [address] 54162- 4103 Jun, [facility] [address] [place] [address] 59982- 3595 Jun, Type 2 diabetes mellitus with hyperglycemia E11.65 [facility] [id number] [place] [address] 11810- 1184 Jun, Uncontrolled type 2 diabetes mellitus with hyperglycemia E11.65 [facility] [address], [place] [address]- 5715 Jun, [facility] [id number] [place] [address] 43361- 9346 May, Lumbago M54.5 [facility] [address] [facility] [id number] [place] [id number] May, [facility] [address] [facility] [id number] [place] [address]22 May, [facility] [address] [facility] [id number] [address] 7822 May, [facility] [id number] [address]- 7559 May, [facility] [id number] [place] [address]- 3975 May, [facility] [id number] [place] [address]- 5570 May, [facility] [address], [place] [address]- 8367 May, [facility] [id number] [address]- 0643 May, Lumbago M54.5 [facility] [address], [place] [address] 2812 May, [facility] [id number], [place] [address] [address], [address] of the chest R93.8 [facility] [address], [place] [address]- 8898 Apr, Bipolar 2 disorder F31.81 ; Chronic post-traumatic stress disorder (PTSD) F43.12 and Panic disorder with agoraphobia F40.01 [facility] [address], [place] [address] [address] Apr, [address] of the chest R93.8 [facility] [id number], [place] [address] [address] Apr, [address] of the chest R93.8 [facility] [id number] [place] [address] 05240- 8291 14 Apr, 2018 [facility] [address] 87018- 0889 Apr, Type 2 diabetes mellitus with hyperglycemia E11.65 [facility] [id number] [place] [address] 98548- 1753 Apr, 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 mellitus without complication, without long-term current use of insulin E11.9 ; Watery eyes H04.203 ; Low back pain M54.5 ; Other chronic pain G89.29 ; Chronic tension-type headache, not intractable G44.229 ; Uncontrolled type 2 diabetes mellitus without complication , without long-term current use of insulin E11.65 and Bronchitis J40 [facility] [id number] [place] [address] 15757- 0263 Apr, [facility] [address] 17437- 9235 Apr, Lumbago M54.5 [facility] [id number] [place] [address] 65473- 7257 March, [facility] [id number] [place] [address] 49623 -7272 March, Cough R05 ; Pneumonia due to infectious organism, unspecified laterality, unspecified part of lung J18.9 and Non-intractable vomiting with nausea, unspecified vomiting type R11.2 [facility] [id number] [place] [address] 54154- 4442 March, Bronchitis J40 [facility] [id number] [place] [address] 07971- 8131 March, [facility] [address] 20959- 2256 March, El's esophageal ulceration K22.10 and Type 2 diabetes mellitus with hyperglycemia E11.65 [facility] [address] 01083- 2006 March, Panic disorder with agoraphobia F40.01 ; Chronic post- traumatic stress disorder (PTSD) F43.12 and Bipolar 2 disorder F31.81 [facility] [id number] [place] [address] 17323- 3508 March, Type 2 diabetes mellitus with hyperglycemia E11.65 [facility] [id number] [place] [address] 68085- 5454 March, [facility] [id number] [place] [address] 90882- 2549 March, Lumbago M54.5 [facility] [id number] [place] [address] 32962- 5885 March, [facility] [id number] [place] [address] 48470- 8761 March, Irritable bowel syndrome with diarrhea K58.0 ; Primary insomnia F51.01 ; Type 2 diabetes mellitus with hyperglycemia E11.65 and 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 [facility] [id number] [place] [address] 13089- 5498 March, [facility] [id number] [place] [address] 20964- 0416 Jan, [facility] [id number] [place] [address] 88181- 2646 Jan, [facility] [id number] [place] [address] 13318- 1427 Jan, [facility] [id number] [place] [address] 45034- 9038 Jan, [facility] [id number] [place] [address] 61229- 1331 Jan, Dizziness R42 [facility] [id number] [place] [address] 35267- 8454 Jan, Bipolar affective disorder, currently depressed, mild F31.31 ; Panic disorder with agoraphobia F40.01 and Chronic post-traumatic stress disorder (PTSD) F43.12 [facility] [id number] [place] [address] 60165- 9053 17 Jan, 2018 Dizziness R42 [facility] [id number] [place] [address] 20288- 4203 11 Jan, 2018 Chest pain, unspecified type R07.9 ; Exertional dyspnea R06.09 ; Hypertension, unspecified type I10 and Hyperlipidemia, unspecified hyperlipidemia type E78.5 [facility] [address] 35260- 8710 Jan, [facility] [address] 19332- 1946 09 Jan, 2018 Lumbago M54.5 [facility] [address] 69908- 7066 04 Jan, 2018 El's esophageal ulceration K22.10 ; Blister (nonthermal ) of oral cavity, initial encounter S00.522A ; Local infection of the skin and subcutaneous tissue, unspecified L08.9 ; Type 2 diabetes mellitus with hyperglycemia E11.65 ; assisted 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 and Stress incontinence N39.3 [facility] [id number] [place] [address] 37846- 9322 27 Dec, 2017 [facility] [address] 16639- 9448 27 Dec, 2017 [facility] [id number] [place] [address] 23201- 9610 Dec, [facility] [address] [id number] 16 Dec, 2017 Dental examination Z01.20 [facility] [id number] [place] [address] 69516- 4716 15 Dec, 2017 Acute pain of right knee M25.561 [facility] [address] 34164- 0832 Dec, [facility] [id number] [place] [address] 35021- 4632 Dec, [facility] [address] 71155- 1001 Dec, Lumbago M54.5 ; Acute pain of right knee M25.561 and Seasonal allergic rhinitis due to other allergic trigger J30.89 [facility] [address] 98850- 3753 Dec, Type 2 diabetes mellitus with hyperglycemia E11.65 [facility] [address] 34354- 0185 Dec, [facility] [address] 29979- 3425 Dec, [facility] [address] 39088- 8701 Dec, [facility] [id number] [place] [address] 55640- 7960 Dec, [facility] [id number] [place] [address] 39876- 3981 Dec, Chronic post-traumatic stress disorder (PTSD) F43.12 and Panic disorder with agoraphobia F40.01 [facility] [id number] [place] [address] 99139- 0626 13 Dec, 2017 Low back pain M54.5 [facility] [id number] [place] [address] 71230- 9187 12 Dec, 2017 Type 2 diabetes mellitus with hyperglycemia E11.65 ; 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 ; Low back pain M54.5 ; Other chronic pain G89.29 and Encounter for therapeutic drug level monitoring Z51.81 [facility] [id number] [place] [address] 42863- 0390 09 Dec, 2017 Coughing R05 [facility] [address] [place] [address]- 3546 09 Dec, 2017 [facility] [address] [id number] 07 Dec, 2017 Dental examination Z01.20 [facility] [address], [place] [address]- 9984 Nov, Type 2 diabetes mellitus without complications E11.9 and Encounter for therapeutic drug level monitoring Z51.81 [facility] [id number] [place] [address] 31149- 0017 Nov, [facility] [id number] [place] [address] 09334- 1283 Oct, Type 2 diabetes mellitus without complications E11.9 [facility] [address] [place] [address] 40100- 8407 Oct, Type 2 diabetes mellitus with hyperglycemia E11.65 [facility] [id number] [place] [address] 11425- 1199 Aug, Type 2 diabetes mellitus without complications E11.9 [facility] [address] [place] [address] 85580- 8653 Aug, Type 2 diabetes mellitus without complications E11.9 ; Hypoglycemia E16.2 ; Lumbago M54.5 ; Stress incontinence of urine N39.3 and History of PA (myocardial infarction) I25.2 [facility] [address], [place] [address]- 1999 Jun, [facility] [address], [place] [address]- 8718 May, [facility] [address] [place] [address] 89580- 4596 Apr, Panic disorder with agoraphobia F40.01 [facility] [address], [place] [address]- 7122 Apr, Panic disorder with agoraphobia F40.01 [facility] [address] [address]- 7343 Apr, [facility] [address] [place] [address] 68210- 7836 March, Other chronic pain G89.29 [facility] [address], [place] [address]- 9776 March, [facility] [id number] [place] [address] 11559- 0181 March, [facility] [id number] [place] [address] 23027- 1440 March, [facility] [id number] [place] [address] 32763- 1663 March, [facility] [id number] [place] [address] 50180- 0238 March, Type 2 diabetes mellitus without complications E11.9 [facility] [id number] [place] [address] 77557- 6750 March, Diarrhea, unspecified type R19.7 [facility] [id number] [place] [address] 73539- 0309 March, Bipolar 2 disorder F31.81 ; Chronic post-traumatic stress disorder (PTSD) F43.12 and Type 2 diabetes mellitus with hyperglycemia E11.65 [facility] [address], [place] [address]- 1153 March, [facility] [address], [place] [address]- 6384 March, [facility] [address], [place] [address]- 0974 March, Hypertension, benign I10 ; Type 2 diabetes mellitus with hyperglycemia E11.65 ; Hepatitis C B19.20 ; Gastritis and duodenitis K29.90 and Dysuria R30.0 [facility] [address], [place] [address]- 2473 March, Hypertension, benign I10 ; Type 2 diabetes mellitus with hyperglycemia E11.65 ; Hepatitis C B19.20 ; Gastritis and duodenitis K29.90 and Dysuria R30.0 [facility] [id number] [place] [address] 88481- 0591 March, Panic disorder with agoraphobia F40.01 ; Chronic post- traumatic stress disorder (PTSD) F43.12 ; Epilepsy G40.909 and Bipolar I disorder with mood-congruent psychotic features F31.9 [place] [facility] [id number] [place] [address] 56430- 9207 March, [facility] [address] 52950- 3910 March, Type 2 diabetes mellitus with hyperglycemia E11.65 [facility] [address] 73372- 9212 18 Jan, 2017 Bipolar I disorder with duy F31.10 [facility] [id number] [place] [address] 47916- 5704 Jan, Bipolar 2 disorder F31.81 ; Chronic post-traumatic stress disorder (PTSD) F43.12 and Type 2 diabetes mellitus with hyperglycemia E11.65 [facility] [id number] [place] [address] 14236- 8251 Jan, [place] [facility] [id number] [place] [address] 25384- 3426 Jan, [facility] [id number] [place] [address] 23910- 9735 Jan, Panic disorder with agoraphobia F40.01 [facility] [id number] [place] [address] 60553- 4896 Jan, Panic disorder with agoraphobia F40.01 ; Bipolar I disorder with mood-congruent psychotic features F31.9 ; Chronic post-traumatic stress disorder (PTSD) F43.12 and Epilepsy G40.909 [place] [address] [place] [address]- 2546 Jan, [facility] [address], [place] [address]- 7645 Jan, [facility] [address] [place] [address] 55816- 9548 10 Jan, 2017 Type 2 diabetes mellitus without complications E11.9 and Hypoglycemia E16.2 [facility] [id number] [place] [address] 40051- 6127 07 Jan, 2017 Type 2 diabetes mellitus without complications E11.9 ; Primary insomnia F51.01 and Hypertension, benign I10 [facility] [id number] [place] [address] 36470- 9925 Jan, [facility] [place] [id number] [place] [address] [id number] Jan, [facility] [address] [place] [address] 57444- 8931 Dec, Type 2 diabetes mellitus with hyperglycemia E11.65 [facility] [address], [place] [address]- 1782 Dec, [facility] [id number] [place] [address] 05651- 7362 Dec, Bipolar 2 disorder F31.81 ; Panic disorder with agoraphobia F40.01 ; Chronic post-traumatic stress disorder (PTSD) F43.12 and Epilepsy G40.909 [facility] [address], [place] [address]- 8800 Dec, [facility] [address], [place] [address]- 8282 Dec, [facility] [id number] [place] [address] 03831- 9309 09 Dec, 2016 Bipolar 2 disorder F31.81 ; Panic disorder with agoraphobia F40.01 ; Chronic post-traumatic stress disorder (PTSD) F43.12 and Epilepsy G40.909 [facility] [id number] [place] [address] 36057- 1908 Dec, [facility] [id number] [place] [address] 00889- 8305 Dec, [facility] [id number] [place] [address] 57485- 0571 Dec, [facility] [address] 84219- 9133 Dec, Type 2 diabetes mellitus with hyperglycemia E11.65 ; assisted 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 and Lumbago M54.5 [place] [address] 06471- 2572 Dec, [place] [facility] [address] 70474- 2403 Dec, [place] [address] 13089- 0581 Dec, [facility] [id number] [place] [address] 66650 -7439 Dec, Pain of left leg M79.605 and Pain in right leg M79.604 [facility] [facility] [id number] [place] [address] 16064- 1041 Dec, [facility] [id number] [place] [address] 60121- 5528 Dec, Type 2 diabetes mellitus with hyperglycemia E11.65 [facility] [id number] [place] [address] 30905- 0053 Dec, [facility] [id number] [place] [address] 18738- 5214 Dec, Type 2 diabetes mellitus with hyperglycemia E11.65 ; assisted 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 ; Vagina, candidiasis B37.3 and Other chronic pain G89.29 [facility] [address] 06875- 3060 Nov, Panic disorder with agoraphobia F40.01 [facility] [address], [place] [address]- 6948 Nov, [facility] [address] [place] [address] 43572- 5960 Nov, [facility] [id number] [place] [address] 58721- 4506 Nov, Hypoglycemia E16.2 [facility] [id number] [place] [address] 73877- 6697 Nov, [facility] [id number] [place] [address] 43454- 4458 Nov, [facility] [id number] [place] [address] 57161- 7307 Nov, [facility] [id number] [place] [address] 45358- 1642 Nov, Type 2 diabetes mellitus with hyperglycemia E11.65 and 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 [facility] [id number] [place] [address] Nov, Panic disorder with agoraphobia F40.01 ; Bipolar 2 disorder F31.81 ; Chronic post-traumatic stress disorder (PTSD) F43.12 and Epilepsy G40.909 [facility] [id number] [place] [address]- 4026 Nov, Panic disorder with agoraphobia F40.01 [facility] [id number] [address] Oct, [facility] [id number] [place] [address] Oct, [facility] [id number] [address] Oct, Bipolar 2 disorder F31.81 ; Panic disorder with agoraphobia F40.01 and Mood disorder F39 [facility] [id number] [address] 12 Oct, 2016 Diabetes E11.9 ; Type 2 diabetes mellitus with hyperglycemia E11.65 and assisted 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 [facility] [id number] [address] 06 Oct, 2016 [facility] [id number] [place] [address]- [address] Sep, [facility] [id number] [place] [address] 71819- 9405 Sep, Bipolar 2 disorder F31.81 and Mood disorder F39 [facility] [id number] [place] [address] 63184- 8556 Sep, [facility] [id number] [place] [address] 59079- 0358 Sep, Uncontrolled type 2 diabetes mellitus without complication, without long-term current use of insulin E11.65 [facility] [address] [address] 8[address] Sep, [facility] [id number] [place] [address] 59089- 3856 Sep, [facility] [id number] [place] [address] 75893- 2337 Sep, [facility] [id number] [place] [address] 66847- 6377 Sep, [facility] [address], [place] [address] 0709 Sep, Bipolar 2 disorder F31.81 ; Chronic post-traumatic stress disorder (PTSD) F43.12 ; Panic disorder with agoraphobia F40.01 and Epilepsy G40.909 [facility] [address], [place] [address] 3286 11 Sep, 2016 Bipolar 2 disorder F31.81 ; PTSD (post-traumatic stress disorder) F43.10 and Panic disorder with agoraphobia F40.01 [facility] [id number] [place] [address] 22634- 7724 Sep, [facility] [id number] [place] [address] Aug, History of seizures Z87.898 ; Panic disorder with agoraphobia F40.01 and Bipolar 2 disorder F31.81 [facility] [id number] [place] [address] 39118- 3998 Aug, [facility] [id number] [place] [address] 42124- 1646 17 Aug, 2016 [facility] [address] 57799- 9709 Aug, [facility] [id number] [place] [address] 92697- 2687 Aug, [facility] [id number] [place] [address] 92917- 2305 Aug, [facility] [id number] [place] [address] 56718- 8194 Aug, [facility] [id number] [place] [address] 38917- 6291 Aug, Hypoglycemia E16.2 and Bilateral impacted cerumen H61.23 [facility] [id number] [place] [address] 26706- 2248 Aug, [facility] [id number] [place] [address] 50352- 6900 Jul, [facility] [id number] [place] [address] 75864- 0391 21 Jul, 2016 [facility] [id number] [place] [address] 33107- 3331 15 Jul, 2016 Bipolar 2 disorder F31.81 ; Panic disorder with agoraphobia F40.01 ; PTSD (post-traumatic stress disorder) F43.10 and Epilepsy G40.909 [facility] [id number] [place] [address] 55014- 8017 Jul, [facility] [id number] [place] [address] 17968- 6778 Jul, Type 2 diabetes mellitus without complications E11.9 and Coughing R05 [facility] [id number] [place] [address] 84303- 7784 Jul, [facility] [id number] [place] [address] 83761- 2552 Jun, [facility] [address] 78360- 4836 Jun, Bipolar 2 disorder F31.81 ; PTSD (post-traumatic stress disorder) F43.10 and Panic disorder with agoraphobia F40.01 [facility] [address] 67367- 4945 Jun, [facility] [id number] [place] [address] 64864- 2945 Jun, [facility] [address] 86555- 4741 Jun, [facility] [id number] [place] [address] 18261- 8886 Jun, Type 2 diabetes mellitus without complications E11.9 and COPD (chronic obstructive pulmonary disease) J44.9 [facility] [id number] [place] [address] [id number] May, Dental examination Z01.20 and Dental caries K02.9 [facility] [id number] [place] [address] 20642- 7249 May, Bipolar 2 disorder F31.81 ; PTSD (post-traumatic stress disorder) F43.10 and Panic disorder with agoraphobia F40.01 [facility] [id number] [place] [address] 05141- 4806 May, Lumbago with sciatica, right side M54.41 ; Other chronic pain G89.29 and Uncontrolled type 2 diabetes mellitus without complication, without long-term current use of insulin E11.65 [facility] [id number] [place] [address] 64915- 2930 May, Chronic bronchitis, unspecified chronic bronchitis type J42 [facility] [id number] [place] [address] 31707- 1772 May, [facility] [id number] [place] [address] 43905- 1525 May, [facility] [id number] [place] [address] 26043- 2213 May, Chest pain, unspecified type R07.9 ; Tobacco use Z72.0 ; Type 2 diabetes mellitus without complications E11.9 ; Essential hypertension I10 ; Hyperlipidemia, unspecified hyperlipidemia type E78.5 ; Obesity (BMI 30- 39.9) E66.9 ; History of hypothyroidism Z86.39 ; Chronic obstructive pulmonary disease, unspecified COPD type J44.9 ; Anxiety F41.9 ; Bilateral claudication of lower limb I73.9 and Bipolar 2 disorder F31.81 [facility] [id number] [place] [address] 03101- 5725 May, Bipolar 2 disorder F31.81 ; Panic disorder with agoraphobia F40.01 and Tobacco abuse Z72.0 [facility] [id number] [place] [address] 60266- 0191 Apr, [facility] [id number] [place] [address] 28925- 2150 Apr, [facility] [id number] [place] [address] 04174- 6258 Apr, [facility] [id number] [place] [address] 24695- 7382 Apr, Bipolar 2 disorder F31.81 ; Panic disorder with agoraphobia F40.01 and PTSD (post-traumatic stress disorder) F43.10 [facility] [id number] [place] [address] 67923- 7025 23 Apr, 2016 Chronic bronchitis, unspecified chronic bronchitis type J42 ; Cervical neuritis M54.12 and Thoracic neuritis M54.14 [facility] [id number] [place] [address] 62187- 9280 15 Apr, 2016 [facility] [address] 09619- 5477 15 Apr, 2016 Cervicalgia M54.2 [facility] [address] 85048- 0861 14 Apr, 2016 Bipolar 2 disorder F31.81 ; Panic disorder with agoraphobia F40.01 and PTSD (post-traumatic stress disorder) F43.10 [facility] [address] 74855 -7613 13 Apr, 2016 [facility] [address] 62380 -0202 09 Apr, 2016 Cough R05 and Tobacco dependence F17.200 [facility] [address] 35609- 8910 06 Apr, 2016 [facility] [address] 73145- 3901 Apr, [facility] [address] 60228- 4988 March, Bipolar 2 disorder F31.81 ; Panic disorder with agoraphobia F40.01 and Generalized anxiety disorder F41.1 [facility] [id number] [place] [address] 71381- 8680 March, Closed displaced fracture of fifth metatarsal bone of right foot with routine healing, subsequent encounter S92.351D [facility] [id number] [place] [address] 22026- 3644 March, Bronchitis J40 [facility] [address] 55191- 3253 March, [facility] [id number] [place] [address] 63720- 3518 March, [facility] [id number] [place] [address] 41518- 2853 March, Foot pain, right M79.671 ; Cervicalgia M54.2 and 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 mellitus without complication, unspecified supervisor long goods insulin use status E11.9 [facility] [id number] [place] [address] 99038- 8078 March, Fracture of fifth metatarsal bone of right foot S92.351A [facility] [address] 91480- 7568 March, [facility] [address] 48835- 3488 Jan, Fracture of fifth metatarsal bone of right foot S92.351A [facility] [id number] [place] [address] 45144- 2533 Jan, Bipolar 2 disorder F31.81 ; PTSD (post-traumatic stress disorder) F43.10 ; Panic disorder with agoraphobia F40.01 and Epilepsy G40.909 [place] [id number] [place] [address] 90441- 4026 Jan, History of PA (myocardial infarction) I25.2 and History of high cholesterol Z86.39 [facility] [id number] [place] [address] 08014- 0512 Jan, Bipolar 2 disorder F31.81 ; Panic disorder with agoraphobia F40.01 ; Tobacco abuse Z72.0 and PTSD (post-traumatic stress disorder) F43.10 [facility] [id number] [place] [address] 94117- 9433 Jan, Fracture of fifth metatarsal bone of right foot S92.351A [facility] [address] 57622- 5565 Jan, [facility] [id number] [place] [address] 00522- 5006 Jan, History of high cholesterol Z86.39 [facility] [id number] [place] [address] 44473- 7484 Jan, History of PA (myocardial infarction) I25.2 [facility] [id number] [place] [address] 17060- 4353 Jan, [facility] [id number] [place] [address] 61190- 2695 Dec, Back pain M54.9 ; Diabetes E11.9 ; Right knee pain M25.561 and Chest pain R07.9 [facility] [id number] [place] [address] 46399- 7261 Dec, [facility] [id number] [place] [address] 61651- 8338 Dec, [facility] [id number] [place] [address] 86675- 2458 Dec, Cervicalgia M54.2 [facility] [id number] [place] [address] 01728- 3421 Dec, Bipolar 2 disorder F31.81 ; PTSD (post-traumatic stress disorder) F43.10 ; Panic disorder with agoraphobia F40.01 and Epilepsy G40.909 [facility] [id number] [place] [address] 66872- 2602 08 Jan, 2016 Bipolar 2 disorder F31.81 ; PTSD (post-traumatic stress disorder) F43.10 and Panic disorder with agoraphobia F40.01 [facility] [id number] [place] [address] 01227- 6681 Dec, Diabetes E11.9 [facility] [id number] [place] [address] 30230- 3513 Dec, [facility] [address] [place] [address]- 5896 Dec, Other chronic pain G89.29 ; Hepatitis C B19.20 and History of seizures Z87.898 [facility] [id number] [place] [address] 99246- 6022 24 Dec, 2015 [facility] [id number] [place] [address] 79821- 6966 Dec, Bipolar 2 disorder F31.81 and Other chronic pain G89.29 [facility] [id number] [place] [address] 29295- 6197 Dec, Cervicalgia M54.2 and Diabetes E11.9 [facility] [id number] [place] [address] 90895- 0355 Dec, [facility] [id number] [place] [address] 09933- 8975 Dec, [facility] [id number] [place] [address] 90015- 3223 Dec, [facility] [id number] [place] [address] 38495- 7290 Dec, [facility] [id number] [place] [address] 15395- 2660 Dec, Type 2 diabetes mellitus without complications E11.9 [facility] [id number] [place] [address] 50539- 2431 10 Dec, 2015 [facility] [id number] [place] [address] 53716- 9784 09 Dec, 2015 History of seizures Z87.898 and Hepatitis C B19.20 [facility] [id number] [place] [address] 60891- 2334 08 Dec, 2015 Hepatitis C B19.20 [facility] [id number] [place] [address] 86695- 7734 Dec, [facility] [id number] [place] [address] 36907- 1014 04 Dec, 2015 Cervicalgia M54.2 ; COPD (chronic obstructive pulmonary disease) J44.9 and Hepatitis C B19.20 [facility] [id number] [place] [address] 35657- 3846 02 Dec, 2015 Bipolar 2 disorder F31.81 ; History of hypertension Z86.79 ; History of anxiety Z86.59 ; Panic disorder with agoraphobia F40.01 and Epilepsy G40.909 [facility] [id number] [place] [address] 36225- 1904 Nov, [facility] [address] 46913- 9461 Nov, [address] 55781- 4641 Nov, History of seizures Z87.898 ; OAB (overactive bladder) N32.81 ; Lumbago M54.5 ; Other chronic pain G89.29 ; Cervicalgia M54.2 ; Tobacco abuse Z72.0 ; Tobacco abuse counseling Z71.6 and Impaired fasting glucose R73.01 [facility] [id number] [place] [address] 85113- 1148 Nov, Bipolar 2 disorder F31.81 ; PTSD (post-traumatic stress disorder) F43.10 ; History of anxiety Z86.59 ; History of COPD Z87.09 ; Panic disorder with agoraphobia F40.01 and Moderate depressed bipolar I disorder F31.32 [facility] [id number] [place] [address] 93477- 4503 12 Nov, 2015 PTSD (post-traumatic stress disorder) F43.10 [facility] [id number] [place] [address] [id number] 11 Nov, 2015 Dental examination Z01.20 and Dental caries K02.9 [place] [id number] [place] [address] 86388- 7964 08 Nov, 2015 History of hypertension Z86.79 ; History of hypothyroidism Z86.39 ; History of high cholesterol Z86.39 ; History of COPD Z87.09 and Overactive bladder N32.[address] 86559- 2815 Nov, Bipolar 2 disorder F31.81 and PTSD (post-traumatic stress disorder) F43.[address] 01106- 5980 Nov, PTSD (post-traumatic stress disorder) F43.10 ; Panic disorder with agoraphobia F40.01 ; Epilepsy G40.909 and Moderate depressed bipolar I disorder F31.[address] 93800- 4652 Nov, [address] 98706- 5322 Nov, [address] 43998- 8984 Oct, [place] [id number] [place] [address] 16040- 1264 Oct, Generalized anxiety disorder F41.1 ; Major depression, recurrent F33.9 and PTSD (post-traumatic stress disorder) F43.10 [place] [id number] [place] [address] 32941- 1215 Oct, Elevated fasting glucose R73.01 [place] [id number] [place] [address] 53827- 7072 Oct, Elevated fasting glucose R73.01 [place] [id number] [place] [address] 22443- 7064 Oct, History of COPD Z87.09 [place] [id number] [place] [address] 92055- 7996 15 Oct, 2015 General medical exam Z00.00 ; History of hypertension Z86.79 ; History of hypothyroidism Z86.39 ; History of hepatitis Z86.19 ; History of high cholesterol Z86.39 and History of seizures Z87.898 [facility] [address] [address]- 0733 10 Oct, 2015 General medical exam Z00.00 ; History of hypertension Z86.79 ; History of hypothyroidism Z86.39 ; Bipolar 2 disorder F31.81 ; PTSD ( post-traumatic stress disorder) F43.10 ; History of hepatitis Z86.19 ; History of high cholesterol Z86.39 ; History of anxiety Z86.59 ; History of seizures Z87.898 ; History of PA (myocardial infarction) I25.2 and History of COPD Z87.09 [facility] [id number] [place] [address] 17293- 3984 10 Oct, 2015 Generalized anxiety disorder F41.1 ; Depression F32.9 and PTSD (post-traumatic stress disorder) F43.10 [facility] [id number] [address]- 9510 Jan, [facility] [id number] [address]- 8375 Jan, [facility] [id number] [address]- 4942 Jun, [facility] [address] [place] [id number] Jun, [facility] [address] [address]- 6971 May, [facility] [id number] [place] [address] 50984- 2272 May, [facility] [address] [place] [id number] May, [facility] [id number] [address]- 5286 May, [facility] [address] [place] [id number] May, [facility] [address], [place] [address]- 2636 May, IMMUNIZATIONS No Known Immunizations SOCIAL HISTORY Never Assessed REASON FOR VISIT BS f/u PLAN OF CARE VITAL SIGNS MEDICATIONS Medication Instructions Dosage Frequency Start Date End Date Duration Status Levemir 100 UNIT/ML Flex Pen Subcutaneous 2 times a day 100 units in AM and 65 units in PM. 12h 14 Dec, 2017 Active NovoLog Flexpen 100 UNIT/ML Subcutaneous 3 times a day 50-40-70 8h 27 Jun, 2018 Active RESULTS No Results PROCEDURES No Known [...]
--- OUTSIDE RECORDS SUMMARY | 2019-01-26 07:18 | XMS REPORT ---
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 Name Role Phone MARGI GERARDO Unavailable PROBLEMS Type Condition ICD9-CM Code RKQ25-AB Code Onset Dates Condition Status SNOMED Code Problem OAB (overactive bladder) N32.81 Active 587357438 Problem Epilepsy G40.909 Active 59641470 Problem Cervicalgia M54.2 Active 34182002 Problem Other chronic pain G89.29 Active 11554098 Problem Tobacco abuse Z72.0 Active 58591195 Problem Lumbago M54.5 Active 582998514 Problem Hepatitis C B19.20 Active 33757952 Problem COPD (chronic obstructive pulmonary disease) J44.9 Active 41931846 Problem Diabetes E11.9 Active 08041203 Problem Bipolar I disorder with duy F31.10 Active 79378523 Problem Type 2 diabetes mellitus without complications E11.9 Active 663130989 Problem Stress incontinence of urine N39.3 Active 54959498 Problem Bilateral claudication of lower limb I73.9 Active 320685080 Problem Seasonal allergic rhinitis due to other allergic trigger J30.89 Active 084203578 Problem Hyperlipidemia, unspecified hyperlipidemia type E78.5 Active 20729068 Problem Hypertension, unspecified type I10 Active 67403776 Problem Chronic tension-type headache, not intractable G44.229 Active 237122665 Problem 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 mellitus without complication, without long -term current use of insulin E11.9 Active 960173234 Problem Type 2 diabetes mellitus with hyperglycemia E11.65 Active 718483704 Problem Chronic post-traumatic stress disorder (PTSD) F43.12 Active 312122462 Problem History of hypothyroidism Z86.39 Active 886573827 Problem Hypoglycemia E16.2 Active 685427616 Problem El's esophageal ulceration K22.10 Active 169363636 Problem Bipolar affective disorder, currently depressed, mild F31.31 Active 885365507 Problem Irritable bowel syndrome with diarrhea K58.0 Active 561026499 Problem Stress incontinence N39.3 Active 30588175 Problem History of hypertension Z86.79 Active 876637579 Problem Uncontrolled type 2 diabetes mellitus without complication, without long-term current use of insulin E11.65 Active 760652019 Problem Panic disorder with agoraphobia F40.01 Active 30346877 Problem Type 2 diabetes mellitus with hyperglycemia E11.65 Active 204287514 Problem History of seizures Z87.898 Active 544702119 Problem USP 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 Active 050736349 Problem History of NV (myocardial infarction) I25.2 Active 627995257 Problem Mood disorder F39 Active 94099380 Problem Bipolar 2 disorder F31.81 Active 22933655 Problem Gastritis and duodenitis K29.90 Active 396409717 Problem History of high cholesterol Z86.39 Active 512416449 Problem Bipolar I disorder with mood-congruent psychotic features F31.9 Active 144787470 Problem Hypertension, benign I10 Active 78487910 Problem Primary insomnia F51.01 Active 0377382 ALLERGIES No Information ENCOUNTERS Encounter Location Date Diagnosis [facility] [id number] [place] [address] 05104- 8013 Nov, [facility] [id number] [place] [address] 69798- 4323 Jul, [facility] [id number] [place] [address] 47504- 9005 Jul, [facility] [id number] [place] [address] 09212- 6474 Jul, Bipolar 2 disorder F31.81 ; Panic disorder with agoraphobia F40.01 and Chronic post-traumatic stress disorder (PTSD) F43.12 [facility] [id number] [place] [address] 22648- 6849 Jun, [facility] [address] 42372- 1695 Jun, [facility] [id number] [place] [address] 05190- 8956 Jun, Lumbago M54.5 [facility] [address] [address]- 6669 Jun, Type 2 diabetes mellitus with hyperglycemia E11.65 [facility] [id number] [place] [address] 78943- 4026 Jun, [facility] [id number] [place] [address] 64130- 5462 Jun, Type 2 diabetes mellitus with hyperglycemia E11.65 ; El 's esophageal ulceration K22.10 and Lumbago M54.5 [facility] [id number] [place] [address] 43326- 7266 Jun, Type 2 diabetes mellitus with hyperglycemia E11.65 [facility] [id number] [place] [address] 99858- 5284 Jun, [place] [id number] [place] [address] 61719- 5672 Jun, [facility] [id number] [place] [address] 08582- 1428 Jun, Bipolar affective disorder, currently depressed, mild F31.31 ; Chronic post-traumatic stress disorder (PTSD) F43.12 and Panic disorder with agoraphobia F40.01 [facility] [address] [place] [address] 68500- 6796 Jun, [place] [id number] [place] [address] 59385- 2922 Jun, [facility] [address] [place] [address] 81930- 9615 Jun, Type 2 diabetes mellitus with hyperglycemia E11.65 [facility] [id number] [place] [address] 74105- 8946 Jun, Uncontrolled type 2 diabetes mellitus with hyperglycemia E11.65 [facility] [address] [address]- 4835 Jun, [facility] [id number] [place] [address] 72810- 9864 May, Lumbago M54.5 [facility] [address] [facility] [id number] [place] [id number] May, [facility] [address] [facility] [id number] [place] [id number]53 May, [facility] [address] [facility] [id number] [address]- 0683 May, [facility] [id number] [address]- 6625 May, [facility] [id number] [address]- 9066 May, [facility] [id number] [place] [address]- 8116 May, [facility] [address] [address]- 6296 May, [facility] [id number] [address]- 6096 May, Lumbago M54.5 [facility] [address] [address]- 4083 May, [facility] [id number] [address]- 2956 Apr, Abnormal CT of the chest R93.8 [facility] [address] [address]- 8831 Apr, Bipolar 2 disorder F31.81 ; Chronic post-traumatic stress disorder (PTSD) F43.12 and Panic disorder with agoraphobia F40.01 [facility] [address] [address]- [address], [address] of the chest R93.8 [facility] [id number] [address]- [address] Apr, [address] of the chest R93.8 [facility] [id number] [place] [address] 86197- 4105 14 Apr, 2018 [place] [address] 38999- 9183 Apr, Type 2 diabetes mellitus with hyperglycemia E11.65 [facility] [id number] [place] [address] 89235- 0059 Apr, 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 mellitus without complication, without long-term current use of insulin E11.9 ; Watery eyes H04.203 ; Low back pain M54.5 ; Other chronic pain G89.29 ; Chronic tension-type headache, not intractable G44.229 ; Uncontrolled type 2 diabetes mellitus without complication , without long-term current use of insulin E11.65 and Bronchitis J40 [place] [id number] [place] [address] 04822- 4017 Apr, [place] [address] 44765- 7085 Apr, Lumbago M54.5 [place] [facility] [id number] [place] [address] 79231- 6698 March, [facility] [id number] [place] [address] 59193 -0740 March, Cough R05 ; Pneumonia due to infectious organism, unspecified laterality, unspecified part of lung J18.9 and Non-intractable vomiting with nausea, unspecified vomiting type R11.2 [place] [id number] [place] [address] 72203- 9367 March, Bronchitis J40 [place] [id number] [place] [address] 29812- 9050 March, [place] [address] 67997- 6960 March, El's esophageal ulceration K22.10 and Type 2 diabetes mellitus with hyperglycemia E11.65 [place] [address] 16064- 2785 March, Panic disorder with agoraphobia F40.01 ; Chronic post- traumatic stress disorder (PTSD) F43.12 and Bipolar 2 disorder F31.81 [place] [id number] [place] [address] 00645- 4229 March, Type 2 diabetes mellitus with hyperglycemia E11.65 [place] [facility] [id number] [place] [address] 65641- 2028 March, [facility] [id number] [place] [address] 18384- 9564 March, Lumbago M54.5 [place] [id number] [place] [address] 85264- 2538 March, [facility] [id number] [place] [address] 40498- 7224 March, Irritable bowel syndrome with diarrhea K58.0 ; Primary insomnia F51.01 ; Type 2 diabetes mellitus with hyperglycemia E11.65 and 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 [place] [id number] [place] [address] 38655- 7462 March, [place] [id number] [place] [address] 85874- 2303 Jan, [facility] [id number] [place] [address] 84538- 8397 Jan, [facility] [id number] [place] [address] 96728- 3230 Jan, [facility] [id number] [place] [address] 89070- 1193 Jan, [facility] [id number] [place] [address] 19800- 4038 Jan, Dizziness R42 [facility] [id number] [place] [address] 40275- 1087 Jan, Bipolar affective disorder, currently depressed, mild F31.31 ; Panic disorder with agoraphobia F40.01 and Chronic post-traumatic stress disorder (PTSD) F43.12 [place] [id number] [place] [address] 21972- 7696 17 Jan, 2018 Dizziness R42 [place] [id number] [place] [address] 55943- 4354 11 Jan, 2018 Chest pain, unspecified type R07.9 ; Exertional dyspnea R06.09 ; Hypertension, unspecified type I10 and Hyperlipidemia, unspecified hyperlipidemia type E78.5 [place] [address] 69462- 6784 Jan, [place] [address] 44086- 4186 09 Jan, 2018 Lumbago M54.5 [place] [address] 36462- 8263 04 Jan, 2018 El's esophageal ulceration K22.10 ; Blister (nonthermal ) of oral cavity, initial encounter S00.522A ; Local infection of the skin and subcutaneous tissue, unspecified L08.9 ; Type 2 diabetes mellitus with hyperglycemia E11.65 ; USP 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 and Stress incontinence N39.3 [place] [id number] [place] [address] 47604- 2404 27 Dec, 2017 [place] [address] 08619- 0122 27 Dec, 2017 [place] [id number] [place] [address] 44373- 5669 Dec, [facility] [address] [id number] 16 Dec, 2017 Dental examination Z01.20 [place] [id number] [place] [address] 77155- 8071 15 Dec, 2017 Acute pain of right knee M25.561 [place] [address] 98882- 3418 Dec, [place] [id number] [place] [address] 57497- 8388 Dec, [place] [address] 76593- 8330 Dec, Lumbago M54.5 ; Acute pain of right knee M25.561 and Seasonal allergic rhinitis due to other allergic trigger J30.89 [place] [address] 74547- 0430 Dec, Type 2 diabetes mellitus with hyperglycemia E11.65 [place] [address] 00141- 7078 Dec, [place] [address] 29201- 9407 Dec, [place] [address] 93288- 8198 Dec, [place] [id number] [place] [address] 17695- 6785 Dec, [place] [id number] [place] [address] 01716- 9595 Dec, Chronic post-traumatic stress disorder (PTSD) F43.12 and Panic disorder with agoraphobia F40.01 [place] [id number] [place] [address] 00323- 6333 13 Dec, 2017 Low back pain M54.5 [place] [id number] [place] [address] 89661- 1927 12 Dec, 2017 Type 2 diabetes mellitus with hyperglycemia E11.65 ; 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 ; Low back pain M54.5 ; Other chronic pain G89.29 and Encounter for therapeutic drug level monitoring Z51.81 [place] [id number] [place] [address] 86334- 5123 09 Dec, 2017 Coughing R05 [place] [address] [address]- 8546 09 Dec, 2017 [facility] [address] [id number] 07 Dec, 2017 Dental examination Z01.20 [facility] [address] [address]- 7785 Nov, Type 2 diabetes mellitus without complications E11.9 and Encounter for therapeutic drug level monitoring Z51.81 [facility] [id number] [place] [address] 40817- 4943 Nov, [place] [id number] [place] [address] 00672- 6531 Oct, Type 2 diabetes mellitus without complications E11.9 [place] [address] [place] [address] 02088- 1305 Oct, Type 2 diabetes mellitus with hyperglycemia E11.65 [place] [id number] [place] [address] 94571- 0879 Aug, Type 2 diabetes mellitus without complications E11.9 [facility] [address] [place] [address] 59321- 5791 Aug, Type 2 diabetes mellitus without complications E11.9 ; Hypoglycemia E16.2 ; Lumbago M54.5 ; Stress incontinence of urine N39.3 and History of NV (myocardial infarction) I25.2 [place] [address] [address]- 3739 Jun, [facility] [address] [address]- 7868 May, [place] [id number] [place] [address] 73623- 1589 Apr, Panic disorder with agoraphobia F40.01 [facility] [address] [address]- 2485 Apr, Panic disorder with agoraphobia F40.01 [place] [id number] [address]- 4252 Apr, [facility] [id number] [place] [address] 76964- 9402 March, Other chronic pain G89.29 [facility] [address] [address]- 9948 March, [facility] [id number] [place] [address] 18728- 0831 March, [facility] [id number] [place] [address] 52681- 3006 March, [facility] [id number] [place] [address] 16402- 6726 March, [facility] [id number] [place] [address] 61342- 4390 March, Type 2 diabetes mellitus without complications E11.9 [facility] [id number] [place] [address] 48067- 9076 March, Diarrhea, unspecified type R19.7 [place] [id number] [place] [address] 46289- 8769 March, Bipolar 2 disorder F31.81 ; Chronic post-traumatic stress disorder (PTSD) F43.12 and Type 2 diabetes mellitus with hyperglycemia E11.65 [facility] [address] [address]- 6369 March, [facility] [address] [address]- 1410 March, [facility] [address] [address]- 1639 March, Hypertension, benign I10 ; Type 2 diabetes mellitus with hyperglycemia E11.65 ; Hepatitis C B19.20 ; Gastritis and duodenitis K29.90 and Dysuria R30.0 [facility] [address] [address]- 7872 March, Hypertension, benign I10 ; Type 2 diabetes mellitus with hyperglycemia E11.65 ; Hepatitis C B19.20 ; Gastritis and duodenitis K29.90 and Dysuria R30.0 [place] [id number] [place] [address] 46766- 8704 March, Panic disorder with agoraphobia F40.01 ; Chronic post- traumatic stress disorder (PTSD) F43.12 ; Epilepsy G40.909 and Bipolar I disorder with mood-congruent psychotic features F31.9 [place] [id number] [place] [address] 93916- 3010 March, [place] [address] 05747- 9750 March, Type 2 diabetes mellitus with hyperglycemia E11.65 [place] [address] 65486- 7475 18 Jan, 2017 Bipolar I disorder with duy F31.10 [place] [id number] [place] [address] 51637- 5648 Jan, Bipolar 2 disorder F31.81 ; Chronic post-traumatic stress disorder (PTSD) F43.12 and Type 2 diabetes mellitus with hyperglycemia E11.65 [place] [id number] [place] [address] 03192- 3355 Jan, [place] [id number] [place] [address] 02228- 9319 Jan, [place] [id number] [place] [address] 69432- 0675 Jan, Panic disorder with agoraphobia F40.01 [place] [id number] [place] [address] 13602- 8482 Jan, Panic disorder with agoraphobia F40.01 ; Bipolar I disorder with mood-congruent psychotic features F31.9 ; Chronic post-traumatic stress disorder (PTSD) F43.12 and Epilepsy G40.909 [place] [address] [place] [address]- 2546 Jan, [facility] [address] [address]- 9953 Jan, [facility] [address] [place] [address] 92988- 3946 10 Jan, 2017 Type 2 diabetes mellitus without complications E11.9 and Hypoglycemia E16.2 [facility] [id number] [place] [address] 18058- 7047 07 Jan, 2017 Type 2 diabetes mellitus without complications E11.9 ; Primary insomnia F51.01 and Hypertension, benign I10 [facility] [id number] [place] [address] 02695- 4298 Jan, [facility] [id number] [place] [address] [id number] Jan, [facility] [id number] [place] [address] 82570- 5197 Dec, Type 2 diabetes mellitus with hyperglycemia E11.65 [facility] [address] [address]- 7402 Dec, [facility] [id number] [place] [address] 56166- 0527 Dec, Bipolar 2 disorder F31.81 ; Panic disorder with agoraphobia F40.01 ; Chronic post-traumatic stress disorder (PTSD) F43.12 and Epilepsy G40.909 [facility] [address] [address]- 2794 Dec, [facility] [address] [address]- 6364 Dec, [facility] [id number] [place] [address] 39149- 2398 09 Dec, 2016 Bipolar 2 disorder F31.81 ; Panic disorder with agoraphobia F40.01 ; Chronic post-traumatic stress disorder (PTSD) F43.12 and Epilepsy G40.909 [facility] [id number] [place] [address] 25015- 4600 Dec, [facility] [id number] [place] [address] 74258- 8332 Dec, [facility] [id number] [place] [address] 99637- 6358 Dec, [facility] [address] 51164- 4172 Dec, Type 2 diabetes mellitus with hyperglycemia E11.65 ; USP 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 and Lumbago M54.5 [place] [address] 93793- 1062 Dec, [place] [address] 51288- 5510 Dec, [place] [address] 55734- 9539 Dec, [facility] [id number] [place] [address] 86373 -8111 Dec, Pain of left leg M79.605 and Pain in right leg M79.604 [place] [id number] [place] [address] 62208- 0303 Dec, [facility] [id number] [place] [address] [phone]- [phone] Dec, Type 2 diabetes mellitus with hyperglycemia E11.65 [facility] [id number] [place] [address] [phone]- [phone] Dec, [facility] [id number] [place] [address] [phone]- [phone] Dec, Type 2 diabetes mellitus with hyperglycemia E11.65 ; USP 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 ; Vagina, candidiasis B37.3 and Other chronic pain G89.29 [facility] [address] [phone]- [phone] Nov, Panic disorder with agoraphobia F40.01 [facility] [id number] [address] Nov, [facility] [id number] [place] [address] [phone]- [phone] Nov, [facility] [id number] [place] [address] [phone]- [phone] Nov, Hypoglycemia E16.2 [facility] [id number] [place] [address] [phone]- [phone] Nov, [facility] [id number] [place] [address] [phone]- [phone] Nov, [facility] [id number] [place] [address] [phone]- [phone] Nov, [facility] [id number] [place] [address] [phone]- [phone] Nov, Type 2 diabetes mellitus with hyperglycemia E11.65 and 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 [facility] [id number] [place] [address] [phone]- [phone] Nov, Panic disorder with agoraphobia F40.01 ; Bipolar 2 disorder F31.81 ; Chronic post-traumatic stress disorder (PTSD) F43.12 and Epilepsy G40.909 [facility] [id number] [place] [address] [phone]- [phone] Nov, Panic disorder with agoraphobia F40.01 [facility] [id number] [address] Oct, [facility] [id number] [place] [address] [phone]- [phone] Oct, [facility] [id number] [address] Oct, Bipolar 2 disorder F31.81 ; Panic disorder with agoraphobia F40.01 and Mood disorder F39 [facility] [address] [address] 12 Oct, 2016 Diabetes E11.9 ; Type 2 diabetes mellitus with hyperglycemia E11.65 and USP 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 [facility] [address] [address] 06 Oct, 2016 [facility] [id number] [place] [address] 65995- 7883 Sep, [facility] [id number] [place] [address] 14494- 0199 Sep, Bipolar 2 disorder F31.81 and Mood disorder F39 [facility] [id number] [place] [address] 08007- 9704 Sep, [facility] [id number] [place] [address] 99839- 9546 Sep, Uncontrolled type 2 diabetes mellitus without complication, without long-term current use of insulin E11.65 [facility] [address] [address] 8992 Sep, [facility] [id number] [place] [address] 78411- 1952 Sep, [facility] [id number] [place] [address] 63155- 3888 Sep, [facility] [id number] [place] [address] 20235- 7544 Sep, [facility] [address] [address] 3170 Sep, Bipolar 2 disorder F31.81 ; Chronic post-traumatic stress disorder (PTSD) F43.12 ; Panic disorder with agoraphobia F40.01 and Epilepsy G40.909 [facility] [address] [address] 5749 11 Sep, 2016 Bipolar 2 disorder F31.81 ; PTSD (post-traumatic stress disorder) F43.10 and Panic disorder with agoraphobia F40.01 [facility] [id number] [place] [address] 68371- 9510 Sep, [facility] [id number] [place] [address] Aug, History of seizures Z87.898 ; Panic disorder with agoraphobia F40.01 and Bipolar 2 disorder F31.81 [facility] [id number] [place] [address] 02354- 0521 Aug, [facility] [id number] [place] [address] 43364- 2953 17 Aug, 2016 [facility] [address] 34988- 4629 Aug, [facility] [id number] [place] [address] 84105- 7791 Aug, [facility] [id number] [place] [address] 07315- 7543 Aug, [facility] [id number] [place] [address] 30846- 6028 Aug, [facility] [id number] [place] [address] 43478- 8862 Aug, Hypoglycemia E16.2 and Bilateral impacted cerumen H61.23 [facility] [id number] [place] [address] 49333- 0200 Aug, [facility] [id number] [place] [address] 21505- 4094 Jul, [facility] [id number] [place] [address] 24359- 2161 21 Jul, 2016 [facility] [id number] [place] [address] 07303- 0561 15 Jul, 2016 Bipolar 2 disorder F31.81 ; Panic disorder with agoraphobia F40.01 ; PTSD (post-traumatic stress disorder) F43.10 and Epilepsy G40.909 [facility] [id number] [place] [address] 61709- 8481 Jul, [facility] [id number] [place] [address] 57754- 9374 Jul, Type 2 diabetes mellitus without complications E11.9 and Coughing R05 [facility] [id number] [place] [address] 26358- 4191 Jul, [facility] [id number] [place] [address] 03037- 5170 Jun, [facility] [address] 89201- 6805 Jun, Bipolar 2 disorder F31.81 ; PTSD (post-traumatic stress disorder) F43.10 and Panic disorder with agoraphobia F40.01 [facility] [address] 72229- 1688 Jun, [facility] [id number] [place] [address] 71269- 4698 Jun, [facility] [address] 08453- 9885 Jun, [facility] [id number] [place] [address] 25114- 0957 Jun, Type 2 diabetes mellitus without complications E11.9 and COPD (chronic obstructive pulmonary disease) J44.9 [facility] [id number] [place] [address] [id number] May, Dental examination Z01.20 and Dental caries K02.9 [facility] [id number] [place] [address] 16104- 6948 May, Bipolar 2 disorder F31.81 ; PTSD (post-traumatic stress disorder) F43.10 and Panic disorder with agoraphobia F40.01 [facility] [id number] [place] [address] 42437- 0253 May, Lumbago with sciatica, right side M54.41 ; Other chronic pain G89.29 and Uncontrolled type 2 diabetes mellitus without complication, without long-term current use of insulin E11.65 [facility] [id number] [place] [address] 24315- 9451 May, Chronic bronchitis, unspecified chronic bronchitis type J42 [facility] [id number] [place] [address] 75657- 4691 May, [facility] [facility] [id number] [place] [address] 14835- 6564 May, [facility] [id number] [place] [address] 28482- 8811 May, Chest pain, unspecified type R07.9 ; Tobacco use Z72.0 ; Type 2 diabetes mellitus without complications E11.9 ; Essential hypertension I10 ; Hyperlipidemia, unspecified hyperlipidemia type E78.5 ; Obesity (BMI 30- 39.9) E66.9 ; History of hypothyroidism Z86.39 ; Chronic obstructive pulmonary disease, unspecified COPD type J44.9 ; Anxiety F41.9 ; Bilateral claudication of lower limb I73.9 and Bipolar 2 disorder F31.81 [facility] [id number] [place] [address] 41224- 4028 May, Bipolar 2 disorder F31.81 ; Panic disorder with agoraphobia F40.01 and Tobacco abuse Z72.0 [facility] [id number] [place] [address] 92977- 9272 Apr, [facility] [id number] [place] [address] 72886- 9307 Apr, [facility] [id number] [place] [address] 47317- 0291 Apr, [facility] [id number] [place] [address] 03627- 6319 Apr, Bipolar 2 disorder F31.81 ; Panic disorder with agoraphobia F40.01 and PTSD (post-traumatic stress disorder) F43.10 [facility] [id number] [place] [address] 90532- 9964 23 Apr, 2016 Chronic bronchitis, unspecified chronic bronchitis type J42 ; Cervical neuritis M54.12 and Thoracic neuritis M54.14 [facility] [id number] [place] [address] 68692- 2084 15 Apr, 2016 [place] [address] 36573- 4669 15 Apr, 2016 Cervicalgia M54.2 [place] [facility] [address] 29522- 9919 14 Apr, 2016 Bipolar 2 disorder F31.81 ; Panic disorder with agoraphobia F40.01 and PTSD (post-traumatic stress disorder) F43.10 [facility] IN [facility] [address] 84698 -7828 13 Apr, 2016 [facility] [address] 39724 -1667 09 Apr, 2016 Cough R05 and Tobacco dependence F17.200 [place] [address] 74586- 6016 06 Apr, 2016 [place] [address] 90134- 3628 Apr, [place] [address] 37500- 7172 March, Bipolar 2 disorder F31.81 ; Panic disorder with agoraphobia F40.01 and Generalized anxiety disorder F41.1 [facility] [id number] [place] [address] 94654- 4251 March, Closed displaced fracture of fifth metatarsal bone of right foot with routine healing, subsequent encounter S92.351D [facility] [id number] [place] [address] 02120- 0183 March, Bronchitis J40 [place] [address] 42942- 7873 March, [facility] [id number] [place] [address] 85488- 8500 March, [place] [id number] [place] [address] 91493- 5810 March, Foot pain, right M79.671 ; Cervicalgia M54.2 and 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 mellitus without complication, unspecified long 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 care administrator insulin use status E11.9 [facility] [id number] [place] [address] 53993- 3027 March, Fracture of fifth metatarsal bone of right foot S92.351A [place] [address] 67825- 1171 March, [place] [address] 79236- 3278 Jan, Fracture of fifth metatarsal bone of right foot S92.351A [place] [id number] [place] [address] 62247- 0554 Jan, Bipolar 2 disorder F31.81 ; PTSD (post-traumatic stress disorder) F43.10 ; Panic disorder with agoraphobia F40.01 and Epilepsy G40.909 [place] [id number] [place] [address] 74124- 8747 Jan, History of NV (myocardial infarction) I25.2 and History of high cholesterol Z86.39 [facility] [id number] [place] [address] 49546- 7826 Jan, Bipolar 2 disorder F31.81 ; Panic disorder with agoraphobia F40.01 ; Tobacco abuse Z72.0 and PTSD (post-traumatic stress disorder) F43.10 [place] [facility] [id number] [place] [address] 85513- 8938 Jan, Fracture of fifth metatarsal bone of right foot S92.351A [place] [address] 37426- 6814 Jan, [facility] [id number] [place] [address] 14724- 1179 Jan, History of high cholesterol Z86.39 [place] [id number] [place] [address] 47012- 7626 Jan, History of NV (myocardial infarction) I25.2 [place] [facility] [id number] [place] [address] 91424- 6136 Jan, [place] [id number] [place] [address] 25267- 8832 Dec, Back pain M54.9 ; Diabetes E11.9 ; Right knee pain M25.561 and Chest pain R07.9 [place] [id number] [place] [address] 96048- 8239 Dec, [place] [id number] [place] [address] 59032- 6200 Dec, [place] [facility] [id number] [place] [address] 52855- 6603 Dec, Cervicalgia M54.2 [place] [id number] [place] [address] 66118- 7625 Dec, Bipolar 2 disorder F31.81 ; PTSD (post-traumatic stress disorder) F43.10 ; Panic disorder with agoraphobia F40.01 and Epilepsy G40.909 [place] [place] [id number] [place] [address] 83368- 8490 08 Jan, 2016 Bipolar 2 disorder F31.81 ; PTSD (post-traumatic stress disorder) F43.10 and Panic disorder with agoraphobia F40.01 [place] [id number] [place] [address] 90610- 0057 Dec, Diabetes E11.9 [place] [id number] [place] [address] 07152- 6726 Dec, [place] [address] [place] [address]- 0284 Dec, Other chronic pain G89.29 ; Hepatitis C B19.20 and History of seizures Z87.898 [facility] [id number] [place] [address] 26335- 0284 24 Dec, 2015 [facility] [id number] [place] [address] 11696- 5058 Dec, Bipolar 2 disorder F31.81 and Other chronic pain G89.29 [facility] [id number] [place] [address] 24551- 6292 Dec, Cervicalgia M54.2 and Diabetes E11.9 [facility] [id number] [place] [address] 05645- 0175 Dec, [facility] [id number] [place] [address] 83403- 8643 Dec, [facility] [id number] [place] [address] 37649- 4804 Dec, [facility] [id number] [place] [address] 30399- 5636 Dec, [facility] [id number] [place] [address] 60211- 1774 Dec, Type 2 diabetes mellitus without complications E11.9 [facility] [id number] [place] [address] 03832- 8661 10 Dec, 2015 [facility] [id number] [place] [address] 16859- 4930 09 Dec, 2015 History of seizures Z87.898 and Hepatitis C B19.20 [facility] [id number] [place] [address] 69982- 0724 08 Dec, 2015 Hepatitis C B19.20 [facility] [id number] [place] [address] 49577- 5922 Dec, [facility] [id number] [place] [address] 66695- 7742 04 Dec, 2015 Cervicalgia M54.2 ; COPD (chronic obstructive pulmonary disease) J44.9 and Hepatitis C B19.20 [place] [id number] [place] [address] 89507- 8145 02 Dec, 2015 Bipolar 2 disorder F31.81 ; History of hypertension Z86.79 ; History of anxiety Z86.59 ; Panic disorder with agoraphobia F40.01 and Epilepsy G40.909 [place] [id number] [place] [address] 61297- 5897 Nov, [place] [address] 19054- 4576 Nov, [address] 10106- 0316 Nov, History of seizures Z87.898 ; OAB (overactive bladder) N32.81 ; Lumbago M54.5 ; Other chronic pain G89.29 ; Cervicalgia M54.2 ; Tobacco abuse Z72.0 ; Tobacco abuse counseling Z71.6 and Impaired fasting glucose R73.01 [place] [id number] [place] [address] 16756- 6425 Nov, Bipolar 2 disorder F31.81 ; PTSD (post-traumatic stress disorder) F43.10 ; History of anxiety Z86.59 ; History of COPD Z87.09 ; Panic disorder with agoraphobia F40.01 and Moderate depressed bipolar I disorder F31.32 [place] [id number] [place] [address] 73417- 9613 12 Nov, 2015 PTSD (post-traumatic stress disorder) F43.10 [facility] [id number] [place] [address] [id number] 11 Nov, 2015 Dental examination Z01.20 and Dental caries K02.9 [place] [id number] [place] [address] 77862- 0484 08 Nov, 2015 History of hypertension Z86.79 ; History of hypothyroidism Z86.39 ; History of high cholesterol Z86.39 ; History of COPD Z87.09 and Overactive bladder N32.[address] 87109- 3656 Nov, Bipolar 2 disorder F31.81 and PTSD (post-traumatic stress disorder) F43.[address] 40560- 6052 Nov, PTSD (post-traumatic stress disorder) F43.10 ; Panic disorder with agoraphobia F40.01 ; Epilepsy G40.909 and Moderate depressed bipolar I disorder F31.[address] 09401- 9290 Nov, [address] 84351- 1808 Nov, [address] 10936- 9814 Oct, [place] [id number] [place] [address] 70093- 3402 Oct, Generalized anxiety disorder F41.1 ; Major depression, recurrent F33.9 and PTSD (post-traumatic stress disorder) F43.10 [place] [id number] [place] [address] 60189- 5455 Oct, Elevated fasting glucose R73.01 [place] [id number] [place] [address] 02629- 3918 Oct, Elevated fasting glucose R73.01 [place] [id number] [place] [address] 34367- 8848 Oct, History of COPD Z87.09 [place] [id number] [place] [address] 03872- 6965 15 Oct, 2015 General medical exam Z00.00 ; History of hypertension Z86.79 ; History of hypothyroidism Z86.39 ; History of hepatitis Z86.19 ; History of high cholesterol Z86.39 and History of seizures Z87.898 [facility] [address] [address]- 1070 10 Oct, 2015 General medical exam Z00.00 ; History of hypertension Z86.79 ; History of hypothyroidism Z86.39 ; Bipolar 2 disorder F31.81 ; PTSD ( post-traumatic stress disorder) F43.10 ; History of hepatitis Z86.19 ; History of high cholesterol Z86.39 ; History of anxiety Z86.59 ; History of seizures Z87.898 ; History of NV (myocardial infarction) I25.2 and History of COPD Z87.09 [facility] [id number] [place] [address] 62388- 8624 10 Oct, 2015 Generalized anxiety disorder F41.1 ; Depression F32.9 and PTSD (post-traumatic stress disorder) F43.10 [facility] [id number] [address]- 6272 Jan, [facility] [id number] [address]- 1745 Jan, [facility] [id number] [address]- 4232 Jun, [facility] [address] [place] [id number] Jun, [facility] [address] [address]- 5074 May, [facility] [id number] [place] [address] 87560- 3712 May, [facility] [address] [place] [id number] May, [facility] [id number] [address]- 5748 May, [facility] [address] [id number] May, [facility] [address] [address]- 2716 May, IMMUNIZATIONS No Known Immunizations SOCIAL HISTORY Never Assessed REASON FOR VISIT PLAN OF CARE VITAL SIGNS MEDICATIONS Medication Instructions Dosage Frequency Start Date End Date Duration Status NovoLog 100 UNIT/ML Flex Pen DX E11.9 3 times a day before meals 50-40-60 12 Dec, 2017 Active Levemir 100 UNIT/ML Flex Pen Subcutaneous 2 times a day 100 units in AM and 60 units in PM. 12h 14 Dec, 2017 Active RESULTS No Results PROCEDURES No Known [...]
--- OUTSIDE RECORDS SUMMARY | 2019-01-26 07:18 | XMS REPORT ---
Author Author GERARDO KISER [facility] Address [address] [place] [address] Care Team Providers Care Design Checker Name Role Phone MARGI GERARDO Unavailable PROBLEMS Type Condition ICD9-CM Code TIS62-SJ Code Onset Dates Condition Status SNOMED Code Problem OAB (overactive bladder) N32.81 Active 965797853 Problem Epilepsy G40.909 Active 41130059 Problem Cervicalgia M54.2 Active 05630054 Problem Other chronic pain G89.29 Active 83433540 Problem Tobacco abuse Z72.0 Active 43849187 Problem Lumbago M54.5 Active 450946306 Problem Hepatitis C B19.20 Active 50956935 Problem COPD (chronic obstructive pulmonary disease) J44.9 Active 75506858 Problem Diabetes E11.9 Active 85232026 Problem Bipolar I disorder with duy F31.10 Active 36317911 Problem Type 2 diabetes mellitus without complications E11.9 Active 763393157 Problem Stress incontinence of urine N39.3 Active 24418549 Problem Bilateral claudication of lower limb I73.9 Active 307762948 Problem Seasonal allergic rhinitis due to other allergic trigger J30.89 Active 091168419 Problem Hyperlipidemia, unspecified hyperlipidemia type E78.5 Active 66385902 Problem Hypertension, unspecified type I10 Active 52244526 Problem Chronic tension-type headache, not intractable G44.229 Active 936889802 Problem 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 mellitus without complication, without long -term current use of insulin E11.9 Active 117699955 Problem Type 2 diabetes mellitus with hyperglycemia E11.65 Active 969434855 Problem Chronic post-traumatic stress disorder (PTSD) F43.12 Active 914153303 Problem History of hypothyroidism Z86.39 Active 904062610 Problem Hypoglycemia E16.2 Active 517458753 Problem El's esophageal ulceration K22.10 Active 522456530 Problem Bipolar affective disorder, currently depressed, mild F31.31 Active 663429293 Problem Irritable bowel syndrome with diarrhea K58.0 Active 876941562 Problem Stress incontinence N39.3 Active 47603782 Problem History of hypertension Z86.79 Active 648697009 Problem Uncontrolled type 2 diabetes mellitus without complication, without long-term current use of insulin E11.65 Active 241314346 Problem Panic disorder with agoraphobia F40.01 Active 05403447 Problem Type 2 diabetes mellitus with hyperglycemia E11.65 Active 129197705 Problem History of seizures Z87.898 Active 779503733 Problem penitentiary 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 Active 191312341 Problem History of [place] (myocardial infarction) I25.2 Active 849429224 Problem Mood disorder F39 Active 22962276 Problem Bipolar 2 disorder F31.81 Active 36004126 Problem Gastritis and duodenitis K29.90 Active 345370692 Problem History of high cholesterol Z86.39 Active 658084210 Problem Bipolar I disorder with mood-congruent psychotic features F31.9 Active 246214366 Problem Hypertension, benign I10 Active 62751352 Problem Primary insomnia F51.01 Active 2570036 ALLERGIES No Information ENCOUNTERS Encounter Location Date Diagnosis [facility] [id number] [place] [address] 07274- 9528 Nov, [facility] [id number] [place] [address] 67065- 0133 Jul, [facility] [id number] [place] [address] 19173- 4351 Jul, [facility] [id number] [place] [address] 45425- 6853 Jul, Bipolar 2 disorder F31.81 ; Panic disorder with agoraphobia F40.01 and Chronic post-traumatic stress disorder (PTSD) F43.12 [facility] [id number] [place] [address] 63708- 4682 Jun, [facility] [address] 07848- 8392 Jun, [facility] [id number] [place] [address] 16947- 8854 Jun, Lumbago M54.5 [facility] [address], [place] [address] 3674 Jun, Type 2 diabetes mellitus with hyperglycemia E11.65 [facility] [id number] [place] [address] 48745- 1849 Jun, [facility] [id number] [place] [address] 85373- 2567 Jun, Type 2 diabetes mellitus with hyperglycemia E11.65 ; El 's esophageal ulceration K22.10 and Lumbago M54.5 [facility] [id number] [place] [address] 24708- 7270 Jun, Type 2 diabetes mellitus with hyperglycemia E11.65 [facility] [id number] [place] [address] 46302- 4448 Jun, [facility] [id number] [place] [address] 63512- 8215 Jun, [facility] [id number] [place] [address] 44143- 0056 Jun, Bipolar affective disorder, currently depressed, mild F31.31 ; Chronic post-traumatic stress disorder (PTSD) F43.12 and Panic disorder with agoraphobia F40.01 [facility] [address] [place] [address] 31406- 7999 Jun, [facility] [address] [place] [address] 75164- 6218 Jun, [facility] [address] [place] [address] 81765- 7396 Jun, Type 2 diabetes mellitus with hyperglycemia E11.65 [facility] [id number] [place] [address] 65553- 3311 Jun, Uncontrolled type 2 diabetes mellitus with hyperglycemia E11.65 [facility] [address], [place] [address]- 2728 Jun, [facility] [id number] [place] [address] 14546- 3520 May, Lumbago M54.5 [facility] [address] [facility] [id number] [place] [id number] May, [facility] [address] [facility] [id number] [place] [address]- 9179 May, [facility] [address] [facility] [id number] [address]- 5347 May, [facility] [id number] [address]- 5213 May, [facility] [id number] [place] [address]- 6092 May, [facility] [id number] [place] [address]- 2221 May, [facility] [address], [place] [address]- 7758 May, [facility] [id number] [address]- 0990 May, Lumbago M54.5 [facility] [address], [place] [address]- 5789 May, [facility] [id number], [place] [address] [address], [address] of the chest R93.8 [facility] [address], [place] [address]- 5491 Apr, Bipolar 2 disorder F31.81 ; Chronic post-traumatic stress disorder (PTSD) F43.12 and Panic disorder with agoraphobia F40.01 [facility] [address], [place] [address]- [address] Apr, [address] of the chest R93.8 [facility] [id number], [place] [address]- [address] Apr, [address] of the chest R93.8 [facility] [id number] [place] [address] 39291- 1685 14 Apr, 2018 [facility] [address] 98068- 7617 Apr, Type 2 diabetes mellitus with hyperglycemia E11.65 [facility] [id number] [place] [address] 78472- 6577 Apr, 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 mellitus without complication, without long-term current use of insulin E11.9 ; Watery eyes H04.203 ; Low back pain M54.5 ; Other chronic pain G89.29 ; Chronic tension-type headache, not intractable G44.229 ; Uncontrolled type 2 diabetes mellitus without complication , without long-term current use of insulin E11.65 and Bronchitis J40 [facility] [id number] [place] [address] 50418- 9705 Apr, [facility] [address] 41097- 1272 Apr, Lumbago M54.5 [facility] [id number] [place] [address] 08362- 3802 March, [facility] [id number] [place] [address] 49477 -6612 March, Cough R05 ; Pneumonia due to infectious organism, unspecified laterality, unspecified part of lung J18.9 and Non-intractable vomiting with nausea, unspecified vomiting type R11.2 [facility] [id number] [place] [address] 67533- 8178 March, Bronchitis J40 [facility] [id number] [place] [address] 83423- 8304 March, [facility] [address] 01824- 6027 March, El's esophageal ulceration K22.10 and Type 2 diabetes mellitus with hyperglycemia E11.65 [facility] [address] 61333- 9934 March, Panic disorder with agoraphobia F40.01 ; Chronic post- traumatic stress disorder (PTSD) F43.12 and Bipolar 2 disorder F31.81 [facility] [id number] [place] [address] 15831- 8945 March, Type 2 diabetes mellitus with hyperglycemia E11.65 [facility] [id number] [place] [address] 86990- 6959 March, [facility] [id number] [place] [address] 75291- 9574 March, Lumbago M54.5 [facility] [id number] [place] [address] 00196- 1973 March, [facility] [id number] [place] [address] 64517- 5133 March, Irritable bowel syndrome with diarrhea K58.0 ; Primary insomnia F51.01 ; Type 2 diabetes mellitus with hyperglycemia E11.65 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 [facility] [id number] [place] [address] 69172- 4698 March, [facility] [id number] [place] [address] 89607- 7849 Jan, [facility] [id number] [place] [address] 35551- 4764 Jan, [facility] [id number] [place] [address] 99419- 2834 Jan, [facility] [id number] [place] [address] 21267- 8056 Jan, [facility] [id number] [place] [address] 40572- 7971 Jan, Dizziness R42 [facility] [id number] [place] [address] 31196- 5023 Jan, Bipolar affective disorder, currently depressed, mild F31.31 ; Panic disorder with agoraphobia F40.01 and Chronic post-traumatic stress disorder (PTSD) F43.12 [facility] [id number] [place] [address] 07609- 1235 17 Jan, 2018 Dizziness R42 [facility] [id number] [place] [address] 63250- 9941 11 Jan, 2018 Chest pain, unspecified type R07.9 ; Exertional dyspnea R06.09 ; Hypertension, unspecified type I10 and Hyperlipidemia, unspecified hyperlipidemia type E78.5 [facility] [address] 64796- 7405 Jan, [facility] [address] 07644- 4753 09 Jan, 2018 Lumbago M54.5 [facility] [address] 78778- 0725 04 Jan, 2018 El's esophageal ulceration K22.10 ; Blister (nonthermal ) of oral cavity, initial encounter S00.522A ; Local infection of the skin and subcutaneous tissue, unspecified L08.9 ; Type 2 diabetes mellitus with hyperglycemia E11.65 ; penitentiary 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 and Stress incontinence N39.3 [facility] [id number] [place] [address] 88201- 9910 27 Dec, 2017 [facility] [address] 33914- 6991 27 Dec, 2017 [facility] [id number] [place] [address] 61502- 7522 Dec, [facility] [address] [id number] Dec, 2017 Dental examination Z01.20 [facility] [id number] [place] [address] 12559- 3790 15 Dec, 2017 Acute pain of right knee M25.561 [facility] [address] 42067- 9193 Dec, [facility] [id number] [place] [address] 19177- 1489 Dec, [facility] [address] 99067- 6335 Dec, Lumbago M54.5 ; Acute pain of right knee M25.561 and Seasonal allergic rhinitis due to other allergic trigger J30.89 [facility] [address] 18219- 0751 Dec, Type 2 diabetes mellitus with hyperglycemia E11.65 [facility] [address] 16679- 4646 Dec, [facility] [address] 84350- 3641 Dec, [facility] [address] 00188- 3223 Dec, [facility] [id number] [place] [address] 58408- 1741 Dec, [facility] [id number] [place] [address] 59569- 7115 Dec, Chronic post-traumatic stress disorder (PTSD) F43.12 and Panic disorder with agoraphobia F40.01 [facility] [id number] [place] [address] 60635- 4306 13 Dec, 2017 Low back pain M54.5 [facility] [id number] [place] [address] 09145- 0727 12 Dec, 2017 Type 2 diabetes mellitus with hyperglycemia E11.65 ; 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 ; Low back pain M54.5 ; Other chronic pain G89.29 and Encounter for therapeutic drug level monitoring Z51.81 [facility] [id number] [place] [address] 55129- 3310 09 Dec, 2017 Coughing R05 [facility] [address] [place] [address]- 0486 09 Dec, 2017 [facility] [address] [id number] 07 Dec, 2017 Dental examination Z01.20 [facility] [address], [place] [address]- 6440 Nov, Type 2 diabetes mellitus without complications E11.9 and Encounter for therapeutic drug level monitoring Z51.81 [facility] [id number] [place] [address] 22689- 1192 Nov, [facility] [id number] [place] [address] 78346- 5900 Oct, Type 2 diabetes mellitus without complications E11.9 [facility] [address] [place] [address] 18821- 0535 Oct, Type 2 diabetes mellitus with hyperglycemia E11.65 [facility] [id number] [place] [address] 38873- 3164 Aug, Type 2 diabetes mellitus without complications E11.9 [facility] [address] [place] [address] 91640- 7073 Aug, Type 2 diabetes mellitus without complications E11.9 ; Hypoglycemia E16.2 ; Lumbago M54.5 ; Stress incontinence of urine N39.3 and History of [place] (myocardial infarction) I25.2 [facility] [address], [place] [address]- 7739 Jun, [facility] [address], [place] [address]- 6307 May, [facility] [address] [place] [address] 35553- 5140 Apr, Panic disorder with agoraphobia F40.01 [facility] [address], [place] [address]- 7901 Apr, Panic disorder with agoraphobia F40.01 [facility] [address] [address]- 1264 Apr, [facility] [address] [place] [address] 55017- 3990 March, Other chronic pain G89.29 [facility] [address], [place] [address]- 9369 March, [facility] [id number] [place] [address] 51767- 8919 March, [facility] [id number] [place] [address] 44766- 6602 March, [facility] [id number] [place] [address] 70172- 6055 March, [facility] [id number] [place] [address] 50431- 6688 March, Type 2 diabetes mellitus without complications E11.9 [facility] [id number] [place] [address] 62546- 2877 March, Diarrhea, unspecified type R19.7 [facility] [id number] [place] [address] 88294- 3724 March, Bipolar 2 disorder F31.81 ; Chronic post-traumatic stress disorder (PTSD) F43.12 and Type 2 diabetes mellitus with hyperglycemia E11.65 [facility] [address], [place] [address]- 1522 March, [facility] [address], [place] [address]- 4126 March, [facility] [address], [place] [address]- 9939 March, Hypertension, benign I10 ; Type 2 diabetes mellitus with hyperglycemia E11.65 ; Hepatitis C B19.20 ; Gastritis and duodenitis K29.90 and Dysuria R30.0 [facility] [address], [place] [address]- 9070 March, Hypertension, benign I10 ; Type 2 diabetes mellitus with hyperglycemia E11.65 ; Hepatitis C B19.20 ; Gastritis and duodenitis K29.90 and Dysuria R30.0 [facility] [id number] [place] [address] 49452- 2005 March, Panic disorder with agoraphobia F40.01 ; Chronic post- traumatic stress disorder (PTSD) F43.12 ; Epilepsy G40.909 and Bipolar I disorder with mood-congruent psychotic features F31.9 [facility] [id number] [place] [address] 66118- 5216 March, [facility] [address] 91996- 1639 March, Type 2 diabetes mellitus with hyperglycemia E11.65 [facility] [address] 50356- 5626 18 Jan, 2017 Bipolar I disorder with duy F31.10 [facility] [id number] [place] [address] 58856- 4380 Jan, Bipolar 2 disorder F31.81 ; Chronic post-traumatic stress disorder (PTSD) F43.12 and Type 2 diabetes mellitus with hyperglycemia E11.65 [facility] [id number] [place] [address] 81422- 4507 Jan, [facility] [id number] [place] [address] 07970- 6947 Jan, [facility] [id number] [place] [address] 35765- 6855 Jan, Panic disorder with agoraphobia F40.01 [facility] [id number] [place] [address] 41241- 6474 Jan, Panic disorder with agoraphobia F40.01 ; Bipolar I disorder with mood-congruent psychotic features F31.9 ; Chronic post-traumatic stress disorder (PTSD) F43.12 and Epilepsy G40.909 [facility] [address] [place] [address]- 2546 Jan, [facility] [address], [place] [address]- 3747 Jan, [facility] [address] [place] [address] 55468- 5948 10 Jan, 2017 Type 2 diabetes mellitus without complications E11.9 and Hypoglycemia E16.2 [facility] [id number] [place] [address] 64339- 6671 07 Jan, 2017 Type 2 diabetes mellitus without complications E11.9 ; Primary insomnia F51.01 and Hypertension, benign I10 [facility] [id number] [place] [address] 30860- 9044 Jan, [facility] [place] [id number] [place] [address] [id number] Jan, [facility] [address] [place] [address] 90478- 0736 Dec, Type 2 diabetes mellitus with hyperglycemia E11.65 [facility] [address], [place] [address]- 9304 Dec, [facility] [id number] [place] [address] 63462- 6999 Dec, Bipolar 2 disorder F31.81 ; Panic disorder with agoraphobia F40.01 ; Chronic post-traumatic stress disorder (PTSD) F43.12 and Epilepsy G40.909 [facility] [address], [place] [address]- 4088 Dec, [facility] [address], [place] [address]- 2545 Dec, [facility] [id number] [place] [address] 08357- 3635 09 Dec, 2016 Bipolar 2 disorder F31.81 ; Panic disorder with agoraphobia F40.01 ; Chronic post-traumatic stress disorder (PTSD) F43.12 and Epilepsy G40.909 [facility] [id number] [place] [address] 18360- 4870 Dec, [facility] [id number] [place] [address] 25263- 7574 Dec, [facility] [id number] [place] [address] 13308- 4932 Dec, [facility] [address] 66530- 0093 Dec, Type 2 diabetes mellitus with hyperglycemia E11.65 ; penitentiary 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 and Lumbago M54.5 [facility] [address] 64081- 2939 Dec, [facility] [address] 78641- 2073 Dec, [facility] [address] 20089- 5632 Dec, [facility] [id number] [place] [address] 09229 -9806 Dec, Pain of left leg M79.605 and Pain in right leg M79.604 [facility] [id number] [place] [address] 40562- 7728 Dec, [facility] [id number] [place] [address] 92128- 9310 Dec, Type 2 diabetes mellitus with hyperglycemia E11.65 [facility] [id number] [place] [address] 19472- 6293 Dec, [facility] [id number] [place] [address] 83838- 9163 Dec, Type 2 diabetes mellitus with hyperglycemia E11.65 ; penitentiary 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 ; Vagina, candidiasis B37.3 and Other chronic pain G89.29 [facility] [address] [address] Nov, Panic disorder with agoraphobia F40.01 [facility] [address] [address] Nov, [facility] [id number] [place] [address] [phone] 1069 Nov, [facility] [id number] [place] [address] [id number]- [id number] Nov, Hypoglycemia E16.2 [facility] [id number] [place] [address] [id number]- [id number] Nov, [facility] [id number] [place] [address] 88545- [phone] Nov, [facility] [id number] [place] [address] [id number]- [phone] Nov, [facility] [id number] [place] [address] [id number]- [phone] Nov, Type 2 diabetes mellitus with hyperglycemia E11.65 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 [facility] [id number] [place] [address] 48240- 3207 Nov, Panic disorder with agoraphobia F40.01 ; Bipolar 2 disorder F31.81 ; Chronic post-traumatic stress disorder (PTSD) F43.12 and Epilepsy G40.909 [facility] [address] [place] [address] 92155- 8723 Nov, Panic disorder with agoraphobia F40.01 [facility] [address] [address] Oct, [facility] [id number] [place] [address] 38952- 8915 Oct, [facility] [address], [place] [address] 7446 Oct, Bipolar 2 disorder F31.81 ; Panic disorder with agoraphobia F40.01 and Mood disorder F39 [facility] [address], [place] [address] 0[address] 12 Oct, 2016 Diabetes E11.9 ; Type 2 diabetes mellitus with hyperglycemia E11.65 and penitentiary 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 [facility] [address], [place] [address] 3176 06 Oct, 2016 [facility] [id number] [place] [address] 80017- 4072 Sep, [facility] [id number] [place] [address] 85688- 0023 Sep, Bipolar 2 disorder F31.81 and Mood disorder F39 [facility] [id number] [place] [address] 56448- 4899 Sep, [facility] [id number] [place] [address] 41104- 4656 Sep, Uncontrolled type 2 diabetes mellitus without complication, without long-term current use of insulin E11.65 [facility] [address], [place] [address] 2044 Sep, [facility] [id number] [place] [address] 81102- 0606 Sep, [facility] [id number] [place] [address] 56488- 7939 Sep, [facility] [id number] [place] [address] 84511- 9722 Sep, [facility] [address], [place] [address] 0049 Sep, Bipolar 2 disorder F31.81 ; Chronic post-traumatic stress disorder (PTSD) F43.12 ; Panic disorder with agoraphobia F40.01 and Epilepsy G40.909 [facility] [address], [place] [address] 0333 11 Sep, 2016 Bipolar 2 disorder F31.81 ; PTSD (post-traumatic stress disorder) F43.10 and Panic disorder with agoraphobia F40.01 [facility] [id number] [place] [address] 13906- 3624 Sep, [facility] [id number] [place] [address] Aug, History of seizures Z87.898 ; Panic disorder with agoraphobia F40.01 and Bipolar 2 disorder F31.81 [facility] [id number] [place] [address] 47617- 5521 Aug, [facility] [id number] [place] [address] 60507- 3716 17 Aug, 2016 [facility] [address] 60670- 1103 Aug, [facility] [id number] [place] [address] 03288- 0591 Aug, [facility] [id number] [place] [address] 16883- 5825 Aug, [facility] [id number] [place] [address] 48399- 8309 Aug, [facility] [id number] [place] [address] 46069- 3074 Aug, Hypoglycemia E16.2 and Bilateral impacted cerumen H61.23 [facility] [id number] [place] [address] 35122- 9492 Aug, [facility] [id number] [place] [address] 42268- 0086 Jul, [facility] [id number] [place] [address] 66888- 4325 21 Jul, 2016 [facility] [id number] [place] [address] 92819- 8619 15 Jul, 2016 Bipolar 2 disorder F31.81 ; Panic disorder with agoraphobia F40.01 ; PTSD (post-traumatic stress disorder) F43.10 and Epilepsy G40.909 [facility] [id number] [place] [address] 70211- 2950 Jul, [facility] [id number] [place] [address] 16195- 0000 Jul, Type 2 diabetes mellitus without complications E11.9 and Coughing R05 [facility] [id number] [place] [address] 45067- 0318 Jul, [facility] [id number] [place] [address] 72411- 8248 Jun, [facility] [address] 07329- 8963 Jun, Bipolar 2 disorder F31.81 ; PTSD (post-traumatic stress disorder) F43.10 and Panic disorder with agoraphobia F40.01 [facility] [address] 45183- 8181 Jun, [facility] [id number] [place] [address] 60657- 2794 Jun, [facility] [address] 80216- 8819 Jun, [facility] [id number] [place] [address] 39888- 2313 Jun, Type 2 diabetes mellitus without complications E11.9 and COPD (chronic obstructive pulmonary disease) J44.9 [facility] [id number] [place] [address] [id number] May, Dental examination Z01.20 and Dental caries K02.9 [facility] [id number] [place] [address] 13228- 3404 May, Bipolar 2 disorder F31.81 ; PTSD (post-traumatic stress disorder) F43.10 and Panic disorder with agoraphobia F40.01 [facility] [id number] [place] [address] 32512- 5735 May, Lumbago with sciatica, right side M54.41 ; Other chronic pain G89.29 and Uncontrolled type 2 diabetes mellitus without complication, without long-term current use of insulin E11.65 [facility] [address] [place] [address] 90243- 7947 May, Chronic bronchitis, unspecified chronic bronchitis type J42 [facility] [id number] [place] [address] 44845- 7952 May, [facility] [id number] [place] [address] 49361- 5054 May, [facility] [id number] [place] [address] 87992- 5835 May, Chest pain, unspecified type R07.9 ; Tobacco use Z72.0 ; Type 2 diabetes mellitus without complications E11.9 ; Essential hypertension I10 ; Hyperlipidemia, unspecified hyperlipidemia type E78.5 ; Obesity (BMI 30- 39.9) E66.9 ; History of hypothyroidism Z86.39 ; Chronic obstructive pulmonary disease, unspecified COPD type J44.9 ; Anxiety F41.9 ; Bilateral claudication of lower limb I73.9 and Bipolar 2 disorder F31.81 [facility] [id number] [place] [address] 07431- 3248 May, Bipolar 2 disorder F31.81 ; Panic disorder with agoraphobia F40.01 and Tobacco abuse Z72.0 [facility] [id number] [place] [address] 65120- 9835 Apr, [facility] [id number] [place] [address] 25029- 0535 Apr, [facility] [id number] [place] [address] 65915- 3273 Apr, [facility] [id number] [place] [address] 40485- 7911 Apr, Bipolar 2 disorder F31.81 ; Panic disorder with agoraphobia F40.01 and PTSD (post-traumatic stress disorder) F43.10 [facility] [id number] [place] [address] 72172- 4089 23 Apr, 2016 Chronic bronchitis, unspecified chronic bronchitis type J42 ; Cervical neuritis M54.12 and Thoracic neuritis M54.14 [facility] [id number] [place] [address] 68168- 2604 15 Apr, 2016 [facility] [address] 93273- 0065 15 Apr, 2016 Cervicalgia M54.2 [facility] [address] 70506- 1969 14 Apr, 2016 Bipolar 2 disorder F31.81 ; Panic disorder with agoraphobia F40.01 and PTSD (post-traumatic stress disorder) F43.10 [facility] [address] 22057 -8929 13 Apr, 2016 [facility] [address] 49037 -0545 09 Apr, 2016 Cough R05 and Tobacco dependence F17.200 [facility] [address] 74154- 2297 06 Apr, 2016 [facility] [address] 11537- 9304 Apr, [facility] [address] 05716- 0612 March, Bipolar 2 disorder F31.81 ; Panic disorder with agoraphobia F40.01 and Generalized anxiety disorder F41.1 [facility] [id number] [place] [address] 35948- 8962 March, Closed displaced fracture of fifth metatarsal bone of right foot with routine healing, subsequent encounter S92.351D [facility] [id number] [place] [address] 06031- 2473 March, Bronchitis J40 [facility] [address] 86091- 7607 March, [facility] [id number] [place] [address] 40146- 9201 March, [facility] [id number] [place] [address] 84626- 0421 March, Foot pain, right M79.671 ; Cervicalgia M54.2 and 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 mellitus without complication, 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 [facility] [id number] [place] [address] 25244- 2098 March, Fracture of fifth metatarsal bone of right foot S92.351A [facility] [address] 55545- 1000 March, [facility] [address] 10066- 1056 Jan, Fracture of fifth metatarsal bone of right foot S92.351A [facility] [id number] [place] [address] 78701- 3765 Jan, Bipolar 2 disorder F31.81 ; PTSD (post-traumatic stress disorder) F43.10 ; Panic disorder with agoraphobia F40.01 and Epilepsy G40.909 [facility] [id number] [place] [address] 41939- 8352 Jan, History of NJ (myocardial infarction) I25.2 and History of high cholesterol Z86.39 [facility] [id number] [place] [address] 71840- 3154 Jan, Bipolar 2 disorder F31.81 ; Panic disorder with agoraphobia F40.01 ; Tobacco abuse Z72.0 and PTSD (post-traumatic stress disorder) F43.10 [facility] [id number] [place] [address] 78119- 6895 Jan, Fracture of fifth metatarsal bone of right foot S92.351A [facility] [address] 79792- 1747 Jan, [facility] [address] [place] [address] 52632- 7750 Jan, History of high cholesterol Z86.39 [facility] [id number] [place] [address] 49964- 6401 Jan, History of [place] (myocardial infarction) I25.2 [facility] [id number] [place] [address] 22525- 3847 Jan, [facility] [id number] [place] [address] 92883- 5407 Dec, Back pain M54.9 ; Diabetes E11.9 ; Right knee pain M25.561 and Chest pain R07.9 [facility] [id number] [place] [address] 06739- 9633 Dec, [facility] [id number] [place] [address] 25485- 8042 Dec, [facility] [id number] [place] [address] 96117- 3103 Dec, Cervicalgia M54.2 [facility] [id number] [place] [address] 77942- 3609 Dec, Bipolar 2 disorder F31.81 ; PTSD (post-traumatic stress disorder) F43.10 ; Panic disorder with agoraphobia F40.01 and Epilepsy G40.909 [facility] [id number] [place] [address] 48675- 4163 08 Jan, 2016 Bipolar 2 disorder F31.81 ; PTSD (post-traumatic stress disorder) F43.10 and Panic disorder with agoraphobia F40.01 [facility] [id number] [place] [address] 04770- 4697 Dec, Diabetes E11.9 [facility] [id number] [place] [address] 11678- 8533 Dec, [facility] [address] [place] [address]- 4753 Dec, Other chronic pain G89.29 ; Hepatitis C B19.20 and History of seizures Z87.898 [facility] [id number] [place] [address] 39979- 0620 24 Dec, 2015 [facility] [id number] [place] [address] 67487- 3480 Dec, Bipolar 2 disorder F31.81 and Other chronic pain G89.29 [facility] [id number] [place] [address] 44564- 2040 Dec, Cervicalgia M54.2 and Diabetes E11.9 [facility] [id number] [place] [address] 97064- 2498 Dec, [facility] [id number] [place] [address] 10316- 5654 Dec, [facility] [id number] [place] [address] 65096- 8023 Dec, [facility] [id number] [place] [address] 43323- 3572 Dec, [facility] [id number] [place] [address] 81960- 8276 Dec, Type 2 diabetes mellitus without complications E11.9 [facility] [id number] [place] [address] 06988- 8754 10 Dec, 2015 [facility] [id number] [place] [address] 81715- 7350 09 Dec, 2015 History of seizures Z87.898 and Hepatitis C B19.20 [facility] [id number] [place] [address] 21065- 9874 08 Dec, 2015 Hepatitis C B19.20 [facility] [id number] [place] [address] 93115- 0465 Dec, [facility] [id number] [place] [address] 78829- 5300 04 Dec, 2015 Cervicalgia M54.2 ; COPD (chronic obstructive pulmonary disease) J44.9 and Hepatitis C B19.20 [facility] [id number] [place] [address] 60400- 7285 02 Dec, 2015 Bipolar 2 disorder F31.81 ; History of hypertension Z86.79 ; History of anxiety Z86.59 ; Panic disorder with agoraphobia F40.01 and Epilepsy G40.909 [facility] [id number] [place] [address] 67928- 6298 Nov, [facility] [address] 46747- 6442 Nov, [address] 45537- 9650 Nov, History of seizures Z87.898 ; OAB (overactive bladder) N32.81 ; Lumbago M54.5 ; Other chronic pain G89.29 ; Cervicalgia M54.2 ; Tobacco abuse Z72.0 ; Tobacco abuse counseling Z71.6 and Impaired fasting glucose R73.01 [facility] [id number] [place] [address] 88283- 7627 Nov, Bipolar 2 disorder F31.81 ; PTSD (post-traumatic stress disorder) F43.10 ; History of anxiety Z86.59 ; History of COPD Z87.09 ; Panic disorder with agoraphobia F40.01 and Moderate depressed bipolar I disorder F31.32 [facility] [id number] [place] [address] 98040- 7708 12 Nov, 2015 PTSD (post-traumatic stress disorder) F43.10 [facility] [id number] [place] [address] [id number] 11 Nov, 2015 Dental examination Z01.20 and Dental caries K02.9 [facility] [id number] [place] [address] 28503- 6842 08 Nov, 2015 History of hypertension Z86.79 ; History of hypothyroidism Z86.39 ; History of high cholesterol Z86.39 ; History of COPD Z87.09 and Overactive bladder N32.[address] 69378- 3117 Nov, Bipolar 2 disorder F31.81 and PTSD (post-traumatic stress disorder) F43.[address] 11616- 2652 Nov, PTSD (post-traumatic stress disorder) F43.10 ; Panic disorder with agoraphobia F40.01 ; Epilepsy G40.909 and Moderate depressed bipolar I disorder F31.[address] 82996- 9805 Nov, [address] 79668- 4112 Nov, [address] 99710- 2224 Oct, [facility] [id number] [place] [address] 50053- 3193 Oct, Generalized anxiety disorder F41.1 ; Major depression, recurrent F33.9 and PTSD (post-traumatic stress disorder) F43.10 [facility] [place] [id number] [place] [address] 59980- 3623 Oct, Elevated fasting glucose R73.01 [facility] [place] [id number] [place] [address] 51277- 2757 Oct, Elevated fasting glucose R73.01 [facility] [place] [id number] [place] [address] 27002- 2683 Oct, History of COPD Z87.09 [facility] [place] [id number] [place] [address] 28053- 6301 15 Oct, 2015 General medical exam Z00.00 ; History of hypertension Z86.79 ; History of hypothyroidism Z86.39 ; History of hepatitis Z86.19 ; History of high cholesterol Z86.39 and History of seizures Z87.898 [facility] [address] [address]- 0299 10 Oct, 2015 General medical exam Z00.00 ; History of hypertension Z86.79 ; History of hypothyroidism Z86.39 ; Bipolar 2 disorder F31.81 ; PTSD ( post-traumatic stress disorder) F43.10 ; History of hepatitis Z86.19 ; History of high cholesterol Z86.39 ; History of anxiety Z86.59 ; History of seizures Z87.898 ; History of [place] (myocardial infarction) I25.2 and History of COPD Z87.09 [facility] [id number] [place] [address] 32036- 7278 10 Oct, 2015 Generalized anxiety disorder F41.1 ; Depression F32.9 and PTSD (post-traumatic stress disorder) F43.10 [facility] [id number] [address] 1939 Jan, [facility] [id number] [address]- 0356 Jan, [facility] [id number] [address]- 4713 Jun, [facility] [address] [place] [id number] Jun, [facility] [address] [address]- 5024 May, [facility] [id number] [place] [address] 54153- 4898 May, [facility] [address] [place] [id number] May, [facility] [id number] [address]- 8107 May, [facility] [address] [place] [id number] May, [facility] [address] [place] [address]- 7326 May, IMMUNIZATIONS No Known Immunizations SOCIAL HISTORY [...]
--- OUTSIDE RECORDS SUMMARY | 2019-01-26 07:19 | XMS REPORT ---
Author Author MICHELL ORTIZ [facility] Address [address] [place] [address] Phone Unavailable Care Team Providers Care Press Operator Name Role Phone MICHELL ORTIZ Unavailable Unavailable PROBLEMS Type Condition ICD9-CM Code [id number] Code Onset Dates Condition Status SNOMED Code Problem OAB (overactive bladder) N32.81 Active 938331893 Problem Epilepsy G40.909 Active 64328189 Problem Cervicalgia M54.2 Active 89589637 Problem Other chronic pain G89.29 Active 48647302 Problem Tobacco abuse Z72.0 Active 89867842 Problem Lumbago M54.5 Active 961288953 Problem Hepatitis C B19.20 Active 76588193 Problem COPD (chronic obstructive pulmonary disease) J44.9 Active 60193611 Problem Diabetes E11.9 Active 36124435 Problem Bipolar I disorder with duy F31.10 Active 80644179 Problem Type 2 diabetes mellitus without complications E11.9 Active 610836518 Problem Stress incontinence of urine N39.3 Active 86805952 Problem Bilateral claudication of lower limb I73.9 Active 826683044 Problem Seasonal allergic rhinitis due to other allergic trigger J30.89 Active 810590629 Problem Hyperlipidemia, unspecified hyperlipidemia type E78.5 Active 35172091 Problem Hypertension, unspecified type I10 Active 42317482 Problem Chronic tension-type headache, not intractable G44.229 Active 270275648 Problem 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 mellitus without complication, without long -term current use of insulin E11.9 Active 780123226 Problem Type 2 diabetes mellitus with hyperglycemia E11.65 Active 482050125 Problem Chronic post-traumatic stress disorder (PTSD) F43.12 Active 760793201 Problem History of hypothyroidism Z86.39 Active 267800891 Problem Hypoglycemia E16.2 Active 353645136 Problem El's esophageal ulceration K22.10 Active 469058223 Problem Bipolar affective disorder, currently depressed, mild F31.31 Active 533470945 Problem Irritable bowel syndrome with diarrhea K58.0 Active 276180254 Problem Stress incontinence N39.3 Active 66608096 Problem History of hypertension Z86.79 Active 112881793 Problem Uncontrolled type 2 diabetes mellitus without complication, without long-term current use of insulin E11.65 Active 875312275 Problem Panic disorder with agoraphobia F40.01 Active 47812613 Problem Type 2 diabetes mellitus with hyperglycemia E11.65 Active 775037972 Problem History of seizures Z87.898 Active 759939362 Problem assisted 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 Active 649549741 Problem History of GA (myocardial infarction) I25.2 Active 414173024 Problem Mood disorder F39 Active 64207040 Problem Bipolar 2 disorder F31.81 Active 00529927 Problem Gastritis and duodenitis K29.90 Active 734398773 Problem History of high cholesterol Z86.39 Active 099047984 Problem Bipolar I disorder with mood-congruent psychotic features F31.9 Active 977113799 Problem Hypertension, benign I10 Active 21197828 Problem Primary insomnia F51.01 Active 9933729 ALLERGIES No Information ENCOUNTERS Encounter Location Date Diagnosis [facility], [place] [id number] [place] [address] 22547- 8527 Nov, [facility], [place] [id number] [place] [address] 76694- 6532 Jul, [facility], [place] [id number] [place] [address] 53866- 3266 Jul, [facility], [place] [id number] [place] [address] 54701- 9533 Jul, Bipolar 2 disorder F31.81 ; Panic disorder with agoraphobia F40.01 and Chronic post-traumatic stress disorder (PTSD) F43.12 [facility], [place] [id number] [place] [address] 49739- 0230 Jun, [facility], [place] [id number] [place] [address] 00098- 9993 Jun, [facility], [place] [id number] [place] [address] 24210- 5595 Jun, Lumbago M54.5 [facility], [place] [address] [place] [address] 3316 Jun, Type 2 diabetes mellitus with hyperglycemia E11.65 [facility], [place] [id number] [place] [address] 53751- 2545 Jun, [facility], [place] [id number] [place] [address] 24222- 5655 Jun, Type 2 diabetes mellitus with hyperglycemia E11.65 ; El 's esophageal ulceration K22.10 and Lumbago M54.5 [facility], [place] [id number] [place] [address] 79976- 8310 Jun, Type 2 diabetes mellitus with hyperglycemia E11.65 [facility], [place] [id number] [place] [address] 24507- 6677 Jun, [place] [id number] [place] [address] 04138- 4761 Jun, [place] [id number] [place] [address] 16721- 5567 Jun, Bipolar affective disorder, currently depressed, mild F31.31 ; Chronic post-traumatic stress disorder (PTSD) F43.12 and Panic disorder with agoraphobia F40.01 [facility], [place] [id number] [place] [address] 56702- 4385 Jun, [facility], [place] [id number] [place] [address] 13369- 9409 Jun, [facility], [place] [id number] [place] [address] 58889- 0645 Jun, Type 2 diabetes mellitus with hyperglycemia E11.65 [facility], [place] [id number] [place] [address] 76689- 1426 Jun, Uncontrolled type 2 diabetes mellitus with hyperglycemia E11.65 [facility], [place] [address], [place] [address]- 9933 Jun, [facility], [place] [id number] [place] [address] 70410- 7578 May, Lumbago M54.5 [facility] [address] [id number] [place] [id number] May, [facility] [address] [facility] [id number] [place] [address]- 0086 May, [facility] [address] [facility] [id number] [place] [address]- 0350 May, [facility] [address] [facility] [id number] [place] [address]- 0890 May, [facility] [address] [id number] [place] [address]- 4370 May, [facility] [address] [facility] [id number] [place] [address]- 0167 May, [facility] [address] [facility] [id number] [place] [address]- 0577 May, [facility] [address] [facility] [id number] [place] [address]- 7587 May, Lumbago M54.5 [facility], [place] [address] [facility] [id number] [place] [address]- 4039 May, [facility] [address] [facility] [id number] [place] [address]- [address], [address] of the chest R93.8 [facility], [place] [id number] [address] 6955 Apr, Bipolar 2 disorder F31.81 ; Chronic post-traumatic stress disorder (PTSD) F43.12 and Panic disorder with agoraphobia F40.01 [facility], [place] [address] [facility] [id number] [place] [address]- [address] Apr, [address] of the chest R93.8 [facility], [place] [id number] [address] [address] Apr, [address] of the chest R93.8 [facility], [place] [id number] [place] [address] 56627- 1242 14 Apr, 2018 [place] [address] 58022- 1450 Apr, Type 2 diabetes mellitus with hyperglycemia E11.65 [place] [id number] [place] [address] 36700- 8385 Apr, 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 mellitus without complication, without long-term current use of insulin E11.9 ; Watery eyes H04.203 ; Low back pain M54.5 ; Other chronic pain G89.29 ; Chronic tension-type headache, not intractable G44.229 ; Uncontrolled type 2 diabetes mellitus without complication , without long-term current use of insulin E11.65 and Bronchitis J40 [place] [id number] [place] [address] 23174- 0025 Apr, [place] [address] 09885- 9313 Apr, Lumbago M54.5 [place] [id number] [place] [address] 19651- 1259 March, [facility] [id number] [place] [address] 38798 -9542 March, Cough R05 ; Pneumonia due to infectious organism, unspecified laterality, unspecified part of lung J18.9 and Non-intractable vomiting with nausea, unspecified vomiting type R11.2 [place] [id number] [place] [address] 27247- 0419 March, Bronchitis J40 [place] [id number] [place] [address] 64534- 2397 March, [place] [address] 77217- 2356 March, El's esophageal ulceration K22.10 and Type 2 diabetes mellitus with hyperglycemia E11.65 [place] [address] 62467- 8401 March, Panic disorder with agoraphobia F40.01 ; Chronic post- traumatic stress disorder (PTSD) F43.12 and Bipolar 2 disorder F31.81 [facility], [place] [id number] [place] [address] 24824- 6085 March, Type 2 diabetes mellitus with hyperglycemia E11.65 [facility], [place] [id number] [place] [address] 92010- 1465 March, [facility], [place] [address] 08626- 6397 March, Lumbago M54.5 [facility], [place] [address] 83437- 3951 March, [facility], [place] [id number] [place] [address] 58017- 7102 March, Irritable bowel syndrome with diarrhea K58.0 ; Primary insomnia F51.01 ; Type 2 diabetes mellitus with hyperglycemia E11.65 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 [facility], [place] [id number] [place] [address] 32037- 3166 March, [facility], [place] [id number] [place] [address] 12087- 9092 Jan, [facility], [place] [id number] [place] [address] 06160- 7453 Jan, [facility], [place] [id number] [place] [address] 34965- 3381 Jan, [facility], [place] [id number] [place] [address] 12693- 2020 Jan, [facility], [place] [id number] [place] [address] 92508- 4450 Jan, Dizziness R42 [facility], [place] [id number] [place] [address] 41847- 8943 Jan, Bipolar affective disorder, currently depressed, mild F31.31 ; Panic disorder with agoraphobia F40.01 and Chronic post-traumatic stress disorder (PTSD) F43.12 [place] [id number] [place] [address] 10616- 0741 17 Jan, 2018 Dizziness R42 [place] [id number] [place] [address] 55152- 1966 11 Jan, 2018 Chest pain, unspecified type R07.9 ; Exertional dyspnea R06.09 ; Hypertension, unspecified type I10 and Hyperlipidemia, unspecified hyperlipidemia type E78.5 [place] [id number] [place] [address] 46581- 5817 Jan, [place] [address] 58481- 1892 Jan, Lumbago M54.5 [place] [address] 43012- 3798 04 Jan, 2018 El's esophageal ulceration K22.10 ; Blister (nonthermal ) of oral cavity, initial encounter S00.522A ; Local infection of the skin and subcutaneous tissue, unspecified L08.9 ; Type 2 diabetes mellitus with hyperglycemia E11.65 ; assisted 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 and Stress incontinence N39.3 [place] [id number] [place] [address] 34020- 4672 27 Dec, 2017 [place] [id number] [place] [address] 88101- 0074 27 Dec, 2017 [place] [id number] [place] [address] 22029- 8767 Dec, [facility] [id number] [place] [address] [id number] 16 Dec, 2017 Dental examination Z01.20 [place] [id number] [place] [address] 91260- 1217 15 Dec, 2017 Acute pain of right knee M25.561 [place] [address] 73370- 5503 14 Dec, 2017 [place] [id number] [place] [address] 50358- 3332 Dec, [place] [address] 30404- 7696 Dec, Lumbago M54.5 ; Acute pain of right knee M25.561 and Seasonal allergic rhinitis due to other allergic trigger J30.89 [place] [address] 13411- 9084 Dec, Type 2 diabetes mellitus with hyperglycemia E11.65 [place] [address] 06796- 1378 Dec, [place] [address] 49639- 0958 Dec, [place] [address] 49545- 4419 Dec, [place] [address] 65052- 5745 Dec, [place] [id number] [place] [address] 83093- 5559 Dec, Chronic post-traumatic stress disorder (PTSD) F43.12 and Panic disorder with agoraphobia F40.01 [place] [id number] [place] [address] 49039- 2198 13 Dec, 2017 Low back pain M54.5 [place] [address] 05779- 2624 12 Dec, 2017 Type 2 diabetes mellitus with hyperglycemia E11.65 ; assisted 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 ; Low back pain M54.5 ; Other chronic pain G89.29 and Encounter for therapeutic drug level monitoring Z51.81 [place] [id number] [place] [address] 41403- 6886 09 Dec, 2017 Coughing R05 [place] [address] 03583- 8205 09 Dec, 2017 [facility] [address] [id number] Dec, Dental examination Z01.20 [facility], [place] [address] [place] [address]- 3365 Nov, Type 2 diabetes mellitus without complications E11.9 and Encounter for therapeutic drug level monitoring Z51.81 [place] [id number] [place] [address] 57996- 2539 Nov, [place] [id number] [place] [address] 18684- 9969 Oct, Type 2 diabetes mellitus without complications E11.9 [place] [id number] [place] [address] 66973- 4499 Oct, Type 2 diabetes mellitus with hyperglycemia E11.65 [place] [id number] [place] [address] 51092- 4274 Aug, Type 2 diabetes mellitus without complications E11.9 [place] [address], [place] [address]- 2401 Aug, Type 2 diabetes mellitus without complications E11.9 ; Hypoglycemia E16.2 ; Lumbago M54.5 ; Stress incontinence of urine N39.3 and History of GA (myocardial infarction) I25.2 [place] [address], [place] [address]- 6827 Jun, [place] [address], [place] [address]- 5362 May, [place] [id number] [place] [address] 57588- 0539 Apr, Panic disorder with agoraphobia F40.01 [place] [address], [place] [address]- 4230 Apr, Panic disorder with agoraphobia F40.01 [place] [id number] [place] [address] 27691- 6213 Apr, [facility], [place] [address], [place] [address]- 6005 March, Other chronic pain G89.29 [facility], [place] [address], [place] [address]- 9365 March, [facility], [place] [address], [place] [address]- 7694 March, [facility], [place] [address] [address]- 6130 March, [facility], [place] [address], [place] [address]- 5138 March, [facility], [place] [address], [place] [address]- 6372 March, Type 2 diabetes mellitus without complications E11.9 [facility], [place] [address], [place] [address]- 4328 March, Diarrhea, unspecified type R19.7 [facility], [place] [address], [place] [address]- 0132 March, Bipolar 2 disorder F31.81 ; Chronic post-traumatic stress disorder (PTSD) F43.12 and Type 2 diabetes mellitus with hyperglycemia E11.65 [facility], [place] [id number] [address]- 7051 March, [facility], [place] [address], [place] [address]- 4769 March, [facility], [place] [id number] [address]- 5530 March, Hypertension, benign I10 ; Type 2 diabetes mellitus with hyperglycemia E11.65 ; Hepatitis C B19.20 ; Gastritis and duodenitis K29.90 and Dysuria R30.0 [facility], [place] [id number] [address]- 6357 March, Hypertension, benign I10 ; Type 2 diabetes mellitus with hyperglycemia E11.65 ; Hepatitis C B19.20 ; Gastritis and duodenitis K29.90 and Dysuria R30.0 [place] [address] 02017- 3791 March, Panic disorder with agoraphobia F40.01 ; Chronic post- traumatic stress disorder (PTSD) F43.12 ; Epilepsy G40.909 and Bipolar I disorder with mood-congruent psychotic features F31.9 [place] [address] 38073- 1291 March, [place] [address] 58790- 7361 March, Type 2 diabetes mellitus with hyperglycemia E11.65 [place] [address] 22331- 8563 18 Jan, 2017 Bipolar I disorder with duy F31.10 [place] [address] 46517- 9538 Jan, Bipolar 2 disorder F31.81 ; Chronic post-traumatic stress disorder (PTSD) F43.12 and Type 2 diabetes mellitus with hyperglycemia E11.65 [place] [id number] [place] [address] 35560- 9859 Jan, [place] [id number] [place] [address] 25535- 1563 Jan, [place] [id number] [place] [address] 20812- 4006 14 Jan, 2017 Panic disorder with agoraphobia F40.01 [facility], [place] [id number] [place] [address] 94363- 3041 Jan, Panic disorder with agoraphobia F40.01 ; Bipolar I disorder with mood-congruent psychotic features F31.9 ; Chronic post-traumatic stress disorder (PTSD) F43.12 and Epilepsy G40.909 [place] [address] 57074- 7439 Jan, [facility], [place] [address], [place] [address]- 1650 Jan, [facility] [place] [id number] [place] [address] 87314- 0492 10 Jan, 2017 Type 2 diabetes mellitus without complications E11.9 and Hypoglycemia E16.2 [facility], [place] [id number] [place] [address] 80718- 2462 07 Jan, 2017 Type 2 diabetes mellitus without complications E11.9 ; Primary insomnia F51.01 and Hypertension, benign I10 [facility] [place] [id number] [place] [address] 46834- 0080 Jan, [facility] [id number] [place] [address] [id number] Jan, [facility], [place] [id number] [place] [address] 75735- 9115 Dec, Type 2 diabetes mellitus with hyperglycemia E11.65 [facility], [place] [id number] [place] [address] 19976- 4298 Dec, [facility], [place] [id number] [place] [address] 27563- 1831 Dec, Bipolar 2 disorder F31.81 ; Panic disorder with agoraphobia F40.01 ; Chronic post-traumatic stress disorder (PTSD) F43.12 and Epilepsy G40.909 [facility], [place] [id number] [place] [address] 32097- 8312 Dec, [facility], [place] [address], [place] [address]- 5744 Dec, [facility] [place] [id number] [place] [address] 83380- 2207 09 Dec, 2016 Bipolar 2 disorder F31.81 ; Panic disorder with agoraphobia F40.01 ; Chronic post-traumatic stress disorder (PTSD) F43.12 and Epilepsy G40.909 [facility] [place] [id number] [place] [address] 85710- 3849 Dec, [facility] [place] [id number] [place] [address] 73336- 9916 Dec, [facility] [place] [id number] [place] [address] 92215- 8007 Dec, [facility] [place] [id number] [place] [address] 50540- 4354 Dec, Type 2 diabetes mellitus with hyperglycemia E11.65 ; 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 and Lumbago M54.5 [place] [id number] [place] [address] 85974- 3545 Dec, [place] [address] 87531- 9694 Dec, [place] [id number] [place] [address] 88793- 1121 Dec, [facility] [id number] [place] [address] 10067 -5648 Dec, Pain of left leg M79.605 and Pain in right leg M79.604 [place] [id number] [place] [address] 85285- 4999 Dec, [place] [id number] [place] [address] 87756- 4747 Dec, Type 2 diabetes mellitus with hyperglycemia E11.65 [place] [id number] [place] [address] 69193- 6746 Dec, [facility] [place] [address] [place] [id number] [place] [address] 22298- [id number] Dec, Type 2 diabetes mellitus with hyperglycemia E11.65 ; 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 ; Vagina, candidiasis B37.3 and Other chronic pain G89.29 [facility], [place] [address] [place] [id number] [place] [address] [id number]- 0864 Nov, Panic disorder with agoraphobia F40.01 [facility], [place] [id number] [address] Nov, [facility], [place] [id number] [place] [address] Nov, [facility], [place] [id number] [place] [address] Nov, Hypoglycemia E16.2 [facility], [place] [id number] [place] [address] [id number]- 4146 Nov, [facility], [place] [id number], [place] [address] Nov, [facility], [place] [id number] [place] [address] 58166- 8854 Nov, [facility], [place] [id number] [place] [address] 46187- 2311 Nov, Type 2 diabetes mellitus with hyperglycemia E11.65 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 [facility], [place] [address], [place] [address] Nov, Panic disorder with agoraphobia F40.01 ; Bipolar 2 disorder F31.81 ; Chronic post-traumatic stress disorder (PTSD) F43.12 and Epilepsy G40.909 [facility], [place] [address], [place] [address] Nov, Panic disorder with agoraphobia F40.01 [facility], [place] [address], [place] [address] Oct, [facility], [place] [address], [place] [address] 17[address] Oct, [facility], [place] [address], [place] [address] Oct, Bipolar 2 disorder F31.81 ; Panic disorder with agoraphobia F40.01 and Mood disorder F39 [facility], [place] [address], [place] [address] 12 Oct, 2016 Diabetes E11.9 ; Type 2 diabetes mellitus with hyperglycemia E11.65 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 [facility], [place] [id number] [place] [address] 63538- 9196 06 Oct, 2016 [facility], [place] [id number] [place] [address] 98327- 2740 Sep, [facility], [place] [id number] [place] [address] 68626- 2429 Sep, Bipolar 2 disorder F31.81 and Mood disorder F39 [place] [id number] [place] [address] 27373- 2781 Sep, [place] [id number] [place] [address] 06545- 5497 Sep, Uncontrolled type 2 diabetes mellitus without complication, without long-term current use of insulin E11.65 [place] [id number] [place] [address] 24362- 4479 Sep, [place] [id number] [place] [address] 89563- 4749 Sep, [facility], [place] [id number] [place] [address] 56314- 1537 Sep, [place] [id number] [place] [address] 02616- 4418 Sep, [facility], [place] [id number] [place] [address] 20738- 9087 Sep, Bipolar 2 disorder F31.81 ; Chronic post-traumatic stress disorder (PTSD) F43.12 ; Panic disorder with agoraphobia F40.01 and Epilepsy G40.909 [facility], [place] [address], [place] [address] 7[address] 11 Sep, 2016 Bipolar 2 disorder F31.81 ; PTSD (post-traumatic stress disorder) F43.10 and Panic disorder with agoraphobia F40.01 [facility], [place] [id number] [place] [address] 10585- 1065 Sep, [facility], [place] [id number] [place] [address] 96450- 8950 Aug, History of seizures Z87.898 ; Panic disorder with agoraphobia F40.01 and Bipolar 2 disorder F31.81 [facility], [place] [id number] [place] [address] 11302- 5528 Aug, [facility], [place] [id number] [place] [address] 07037- 2014 17 Aug, 2016 [facility], [place] [id number] [place] [address] 82775- 0324 Aug, [facility], [place] [id number] [place] [address] 67550- 9297 Aug, [facility], [place] [id number] [place] [address] 26429- 6988 Aug, [facility], [place] [id number] [place] [address] 15903- 4808 Aug, [facility], [place] [id number] [place] [address] 35708- 5934 Aug, Hypoglycemia E16.2 and Bilateral impacted cerumen H61.23 [facility], [place] [id number] [place] [address] 81694- 9962 Aug, [facility], [place] [id number] [place] [address] 09437- 7475 Jul, [facility], [place] [id number] [place] [address] 58669- 8383 21 Jul, 2016 [facility], [place] [id number] [place] [address] 79113- 7734 15 Jul, 2016 Bipolar 2 disorder F31.81 ; Panic disorder with agoraphobia F40.01 ; PTSD (post-traumatic stress disorder) F43.10 and Epilepsy G40.909 [facility], [place] [id number] [place] [address] 03832- 0273 Jul, [facility], [place] [address] 79532- 4614 Jul, Type 2 diabetes mellitus without complications E11.9 and Coughing R05 [facility], [place] [id number] [place] [address] 99377- 5091 Jul, [facility], [place] [id number] [place] [address] 69454- 1343 Jun, [facility], [place] [id number] [place] [address] 20686- 6639 Jun, Bipolar 2 disorder F31.81 ; PTSD (post-traumatic stress disorder) F43.10 and Panic disorder with agoraphobia F40.01 [place] [id number] [place] [address] 53910- 0111 Jun, [place] [id number] [place] [address] 95618- 6694 Jun, [place] [id number] [place] [address] 42171- 8970 Jun, [facility], [place] [id number] [place] [address] 52280- 5940 Jun, Type 2 diabetes mellitus without complications E11.9 and COPD (chronic obstructive pulmonary disease) J44.9 [facility] [id number] [place] [address] [id number] May, Dental examination Z01.20 and Dental caries K02.9 [facility], [place] [id number] [place] [address] 13293- 4458 May, Bipolar 2 disorder F31.81 ; PTSD (post-traumatic stress disorder) F43.10 and Panic disorder with agoraphobia F40.01 [facility], [place] [id number] [place] [address] 24480- 5947 May, Lumbago with sciatica, right side M54.41 ; Other chronic pain G89.29 and Uncontrolled type 2 diabetes mellitus without complication, without long-term current use of insulin E11.65 [place] [id number] [place] [address] 34507- 2992 May, Chronic bronchitis, unspecified chronic bronchitis type J42 [place] [id number] [place] [address] 62500- 1582 May, [place] [address] 42400- 4106 May, [place] [id number] [place] [address] 42825- 4196 May, Chest pain, unspecified type R07.9 ; Tobacco use Z72.0 ; Type 2 diabetes mellitus without complications E11.9 ; Essential hypertension I10 ; Hyperlipidemia, unspecified hyperlipidemia type E78.5 ; Obesity (BMI 30- 39.9) E66.9 ; History of hypothyroidism Z86.39 ; Chronic obstructive pulmonary disease, unspecified COPD type J44.9 ; Anxiety F41.9 ; Bilateral claudication of lower limb I73.9 and Bipolar 2 disorder F31.81 [place] [id number] [place] [address] 56627- 9964 May, Bipolar 2 disorder F31.81 ; Panic disorder with agoraphobia F40.01 and Tobacco abuse Z72.0 [place] [id number] [place] [address] 93433- 1119 Apr, [place] [id number] [place] [address] 56521- 5517 Apr, [place] [id number] [place] [address] 08428- 9497 Apr, [place] [id number] [place] [address] 63094- 1547 Apr, Bipolar 2 disorder F31.81 ; Panic disorder with agoraphobia F40.01 and PTSD (post-traumatic stress disorder) F43.[id number] [place] [address] 29141- 3617 Apr, Chronic bronchitis, unspecified chronic bronchitis type J42 ; Cervical neuritis M54.12 and Thoracic neuritis M54.14 [place] [id number] [place] [address] 14610- 8143 15 Apr, 2016 [place] [address] 86879- 3608 15 Apr, 2016 Cervicalgia M54.2 [place] [address] 82147- 8120 14 Apr, 2016 Bipolar 2 disorder F31.81 ; Panic disorder with agoraphobia F40.01 and PTSD (post-traumatic stress disorder) F43.10 [facility] [place] [address] 46448 -0888 Apr, [facility] [address] 18652 -2798 Apr, Cough R05 and Tobacco dependence F17.200 [place] [address] 26231- 8220 Apr, [place] [address] 53491- 1825 Apr, [place] [id number] [place] [address] 54815- 0865 March, Bipolar 2 disorder F31.81 ; Panic disorder with agoraphobia F40.01 and Generalized anxiety disorder F41.1 [place] [id number] [place] [address] 57608- 3139 March, Closed displaced fracture of fifth metatarsal bone of right foot with routine healing, subsequent encounter S92.351D [place] [id number] [place] [address] 52849- 6134 March, Bronchitis J40 [place] [address] 88525- 7329 March, [place] [id number] [place] [address] 47068- 2943 March, [place] [address] 06778- 2400 March, Foot pain, right M79.671 ; Cervicalgia M54.2 and 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 mellitus without complication, unspecified senior living insulin use status E11.9 [place] [address] 99345- 1664 March, Fracture of fifth metatarsal bone of right foot S92.351A [address] 71276- 7828 March, [address] 51337- 2759 Jan, Fracture of fifth metatarsal bone of right foot S92.351A [place] [address] 23447- 6060 Jan, Bipolar 2 disorder F31.81 ; PTSD (post-traumatic stress disorder) F43.10 ; Panic disorder with agoraphobia F40.01 and Epilepsy G40.909 [place] [id number] [place] [address] 09262- 6521 Jan, History of GA (myocardial infarction) I25.2 and History of high cholesterol Z86.39 [place] [id number] [place] [address] 17096- 0336 Jan, Bipolar 2 disorder F31.81 ; Panic disorder with agoraphobia F40.01 ; Tobacco abuse Z72.0 and PTSD (post-traumatic stress disorder) F43.10 [place] [id number] [place] [address] 46187- 8220 Jan, Fracture of fifth metatarsal bone of right foot S92.351A [place] [address] 98170- 2644 Jan, [place] [id number] [place] [address] 07992- 1294 Jan, History of high cholesterol Z86.39 [place] [id number] [place] [address] 02318- 5051 Jan, History of GA (myocardial infarction) I25.2 [place] [id number] [place] [address] 21294- 2702 Jan, [place] [address] 79345- 0609 Dec, Back pain M54.9 ; Diabetes E11.9 ; Right knee pain M25.561 and Chest pain R07.9 [place] [id number] [place] [address] 99282- 5216 Dec, [address] 19339- 4295 Dec, [place] [id number] [place] [address] 21612- 1825 Dec, Cervicalgia M54.[address] 18525- 8052 Dec, Bipolar 2 disorder F31.81 ; PTSD (post-traumatic stress disorder) F43.10 ; Panic disorder with agoraphobia F40.01 and Epilepsy G40.909 [place] [id number] [place] [address] 12962- 5017 Dec, Bipolar 2 disorder F31.81 ; PTSD (post-traumatic stress disorder) F43.10 and Panic disorder with agoraphobia F40.01 [place] [id number] [place] [address] 42623- 3793 Dec, Diabetes E11.9 [place] [id number] [place] [address] 78678- 2418 Dec, [place] [id number] [place] [address] 35686- 2352 Dec, Other chronic pain G89.29 ; Hepatitis C B19.20 and History of seizures Z87.898 [facility], [place] [id number] [place] [address] 04155- 3363 24 Dec, 2015 [facility], [place] [id number] [place] [address] 35354- 8626 Dec, Bipolar 2 disorder F31.81 and Other chronic pain G89.29 [facility], [place] [address] 84218- 7857 Dec, Cervicalgia M54.2 and Diabetes E11.9 [facility], [place] [address] 97397- 5450 Dec, [facility], [place] [address] 08841- 6379 Dec, [facility], [place] [address] 42575- 1170 Dec, [facility], [place] [id number] [place] [address] 56278- 3715 Dec, [facility], [place] [id number] [place] [address] 06450- 3478 Dec, Type 2 diabetes mellitus without complications E11.9 [facility], [place] [id number] [place] [address] 07785- 4227 Dec, [facility], [place] [id number] [place] [address] 14609- 3429 09 Dec, 2015 History of seizures Z87.898 and Hepatitis C B19.20 [facility], [place] [address] 04815- 2259 08 Dec, 2015 Hepatitis C B19.20 [facility], [place] [id number] [place] [address] 08464- 5087 Dec, [facility], [place] [address] [place] [address]- 5338 04 Dec, 2015 Cervicalgia M54.2 ; COPD (chronic obstructive pulmonary disease) J44.9 and Hepatitis C B19.20 [place] [address] 44671- 3253 02 Dec, 2015 Bipolar 2 disorder F31.81 ; History of hypertension Z86.79 ; History of anxiety Z86.59 ; Panic disorder with agoraphobia F40.01 and Epilepsy G40.909 [place] [address] 21314- 0437 Nov, [place] [address] 09205- 0231 Nov, [place] [address] 71972- 6156 Nov, History of seizures Z87.898 ; OAB (overactive bladder) N32.81 ; Lumbago M54.5 ; Other chronic pain G89.29 ; Cervicalgia M54.2 ; Tobacco abuse Z72.0 ; Tobacco abuse counseling Z71.6 and Impaired fasting glucose R73.01 [place] [address] 61987- 2349 Nov, Bipolar 2 disorder F31.81 ; PTSD (post-traumatic stress disorder) F43.10 ; History of anxiety Z86.59 ; History of COPD Z87.09 ; Panic disorder with agoraphobia F40.01 and Moderate depressed bipolar I disorder F31.32 [place] [id number] [place] [address] 82576- 1308 12 Nov, 2015 PTSD (post-traumatic stress disorder) F43.10 [facility] [address] [id number] 11 Nov, 2015 Dental examination Z01.20 and Dental caries K02.9 [place] [id number] [place] [address] 67455- 8379 08 Nov, 2015 History of hypertension Z86.79 ; History of hypothyroidism Z86.39 ; History of high cholesterol Z86.39 ; History of COPD Z87.09 and Overactive bladder N32.81 [place] [address] 07284- 4044 Nov, Bipolar 2 disorder F31.81 and PTSD (post-traumatic stress disorder) F43.[address] 73803- 5978 Nov, PTSD (post-traumatic stress disorder) F43.10 ; Panic disorder with agoraphobia F40.01 ; Epilepsy G40.909 and Moderate depressed bipolar I disorder F31.[address] 14463- 7112 Nov, [address] 32018- 2403 Nov, [address] 63308- 7465 Oct, [place] [address] 38924- 1871 Oct, Generalized anxiety disorder F41.1 ; Major depression, recurrent F33.9 and PTSD (post-traumatic stress disorder) F43.10 [place] [id number] [place] [address] 32115- 3940 Oct, Elevated fasting glucose R73.01 [place] [id number] [place] [address] 44708- 6166 Oct, Elevated fasting glucose R73.01 [place] [id number] [place] [address] 35468- 8004 Oct, History of COPD Z87.09 [place] [id number] [place] [address] 25263- 4001 15 Oct, 2015 General medical exam Z00.00 ; History of hypertension Z86.79 ; History of hypothyroidism Z86.39 ; History of hepatitis Z86.19 ; History of high cholesterol Z86.39 and History of seizures Z87.898 [facility], [place] [address], [place] [address]- 2348 10 Oct, 2015 General medical exam Z00.00 ; History of hypertension Z86.79 ; History of hypothyroidism Z86.39 ; Bipolar 2 disorder F31.81 ; PTSD ( post-traumatic stress disorder) F43.10 ; History of hepatitis Z86.19 ; History of high cholesterol Z86.39 ; History of anxiety Z86.59 ; History of seizures Z87.898 ; History of GA (myocardial infarction) I25.2 and History of COPD Z87.09 [facility], [place] [address], [place] [address]- 6744 10 Oct, 2015 Generalized anxiety disorder F41.1 ; Depression F32.9 and PTSD (post-traumatic stress disorder) F43.10 [facility], [place] [address], [place] [address]- 6729 Jan, [facility], [place] [address], [place] [address]- 9791 Jan, [facility], [place] [address], [place] [address]- 5685 Jun, [facility] [address] [place] [id number] Jun, [facility], [place] [address] [place] [address]- 0024 May, [facility], [place] [address], [place] [address]- 2816 May, [facility] [address] [place] [id number] May, [facility], [place] [address], [place] [address]- 1769 May, [facility] [address] [place] [id number] May, [facility], [place] [address] [place] [address]- 3913 May, IMMUNIZATIONS No Known Immunizations SOCIAL HISTORY Never Assessed REASON FOR VISIT pain PLAN OF CARE VITAL SIGNS MEDICATIONS Unknown [...]
--- OUTSIDE RECORDS SUMMARY | 2019-01-26 07:20 | XMS REPORT ---
Author Author GERARDO KISER [facility] Address [address] [place] [address] Care Team Providers Care Mobile Mechanic Name Role Phone MARGI GERARDO Unavailable PROBLEMS Type Condition ICD9-CM Code FLY16-IV Code Onset Dates Condition Status SNOMED Code Problem OAB (overactive bladder) N32.81 Active 119731787 Problem Epilepsy G40.909 Active 42652682 Problem Cervicalgia M54.2 Active 85514744 Problem Other chronic pain G89.29 Active 00077996 Problem Tobacco abuse Z72.0 Active 96531517 Problem Lumbago M54.5 Active 825610792 Problem Hepatitis C B19.20 Active 71645393 Problem COPD (chronic obstructive pulmonary disease) J44.9 Active 55812632 Problem Diabetes E11.9 Active 66831925 Problem Bipolar I disorder with duy F31.10 Active 28374644 Problem Type 2 diabetes mellitus without complications E11.9 Active 735502386 Problem Stress incontinence of urine N39.3 Active 01120502 Problem Bilateral claudication of lower limb I73.9 Active 637997225 Problem Seasonal allergic rhinitis due to other allergic trigger J30.89 Active 720216823 Problem Hyperlipidemia, unspecified hyperlipidemia type E78.5 Active 87215019 Problem Hypertension, unspecified type I10 Active 18187582 Problem Chronic tension-type headache, not intractable G44.229 Active 848789649 Problem 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 mellitus without complication, without long -term current use of insulin E11.9 Active 135315339 Problem Type 2 diabetes mellitus with hyperglycemia E11.65 Active 291780555 Problem Chronic post-traumatic stress disorder (PTSD) F43.12 Active 937978094 Problem History of hypothyroidism Z86.39 Active 281198488 Problem Hypoglycemia E16.2 Active 174876934 Problem El's esophageal ulceration K22.10 Active 712348350 Problem Bipolar affective disorder, currently depressed, mild F31.31 Active 523889719 Problem Irritable bowel syndrome with diarrhea K58.0 Active 218084941 Problem Stress incontinence N39.3 Active 68109508 Problem History of hypertension Z86.79 Active 691905011 Problem Uncontrolled type 2 diabetes mellitus without complication, without long-term current use of insulin E11.65 Active 144278400 Problem Panic disorder with agoraphobia F40.01 Active 40679005 Problem Type 2 diabetes mellitus with hyperglycemia E11.65 Active 151968511 Problem History of seizures Z87.898 Active 362566592 Problem 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 current use of insulin Z79.4 Active 164078579 Problem History of MT (myocardial infarction) I25.2 Active 670646986 Problem Mood disorder F39 Active 43164528 Problem Bipolar 2 disorder F31.81 Active 41623206 Problem Gastritis and duodenitis K29.90 Active 709523160 Problem History of high cholesterol Z86.39 Active 710940812 Problem Bipolar I disorder with mood-congruent psychotic features F31.9 Active 145997537 Problem Hypertension, benign I10 Active 97412444 Problem Primary insomnia F51.01 Active 4828938 ALLERGIES No Information ENCOUNTERS Encounter Location Date Diagnosis [facility] [id number] [place] [address] 32240- 0551 Nov, [facility] [id number] [place] [address] 21396- 6547 Jul, [facility] [id number] [place] [address] 73310- 6009 Jul, [facility] [id number] [place] [address] 76166- 5357 Jul, Bipolar 2 disorder F31.81 ; Panic disorder with agoraphobia F40.01 and Chronic post-traumatic stress disorder (PTSD) F43.12 [facility] [id number] [place] [address] 74400- 2563 Jun, [facility] [address] 54221- 3714 Jun, [facility] [id number] [place] [address] 35048- 7228 Jun, Lumbago M54.5 [facility] [address], [place] [address] 0403 Jun, Type 2 diabetes mellitus with hyperglycemia E11.65 [facility] [id number] [place] [address] 12013- 3975 Jun, [facility] [id number] [place] [address] 68986- 1879 Jun, Type 2 diabetes mellitus with hyperglycemia E11.65 ; El 's esophageal ulceration K22.10 and Lumbago M54.5 [facility] [id number] [place] [address] 80680- 9090 Jun, Type 2 diabetes mellitus with hyperglycemia E11.65 [facility] [id number] [place] [address] 92640- 4786 Jun, [facility] [id number] [place] [address] 06018- 8280 Jun, [facility] [id number] [place] [address] 49191- 1069 Jun, Bipolar affective disorder, currently depressed, mild F31.31 ; Chronic post-traumatic stress disorder (PTSD) F43.12 and Panic disorder with agoraphobia F40.01 [facility] [address] [place] [address] 17814- 5966 Jun, [facility] [address] [place] [address] 83576- 4558 Jun, [facility] [address] [place] [address] 03108- 5943 Jun, Type 2 diabetes mellitus with hyperglycemia E11.65 [facility] [id number] [place] [address] 67295- 3950 Jun, Uncontrolled type 2 diabetes mellitus with hyperglycemia E11.65 [facility] [address], [place] [address]- 5578 Jun, [facility] [id number] [place] [address] 29291- 2462 May, Lumbago M54.5 [facility] [address] [facility] [id number] [place] [id number] May, [facility] [address] [facility] [id number] [place] [address] 8161 May, [facility] [address] [facility] [id number] [address] 1178 May, [facility] [id number] [address]- 1385 May, [facility] [id number] [address]- 1047 May, [facility] [id number] [address]- 1788 May, [facility] [address], [place] [address]- 1466 May, [facility] [id number], [place] [address]- 0107 May, Lumbago M54.5 [facility] [address], [place] [address] 0312 May, [facility] [id number], [place] [address]- [address], [address] of the chest R93.8 [facility] [address], [place] [address]- 7715 Apr, Bipolar 2 disorder F31.81 ; Chronic post-traumatic stress disorder (PTSD) F43.12 and Panic disorder with agoraphobia F40.01 [facility] [address], [place] [address]- [address] Apr, [address] of the chest R93.8 [facility] [id number], [place] [address]- [address], [address] of the chest R93.8 [facility] [id number] [place] [address] 23194- 1564 14 Apr, 2018 [facility] [address] 88950- 1391 Apr, Type 2 diabetes mellitus with hyperglycemia E11.65 [facility] [id number] [place] [address] 17690- 0806 Apr, 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 mellitus without complication, without long-term current use of insulin E11.9 ; Watery eyes H04.203 ; Low back pain M54.5 ; Other chronic pain G89.29 ; Chronic tension-type headache, not intractable G44.229 ; Uncontrolled type 2 diabetes mellitus without complication , without long-term current use of insulin E11.65 and Bronchitis J40 [facility] [id number] [place] [address] 85147- 2657 Apr, [facility] [address] 05312- 1218 Apr, Lumbago M54.5 [facility] [id number] [place] [address] 00817- 7888 March, [facility] [id number] [place] [address] 13349 -9867 March, Cough R05 ; Pneumonia due to infectious organism, unspecified laterality, unspecified part of lung J18.9 and Non-intractable vomiting with nausea, unspecified vomiting type R11.2 [facility] [id number] [place] [address] 88345- 4098 March, Bronchitis J40 [facility] [id number] [place] [address] 32592- 3569 March, [facility] [address] 61988- 8952 March, El's esophageal ulceration K22.10 and Type 2 diabetes mellitus with hyperglycemia E11.65 [facility] [address] 36787- 0110 March, Panic disorder with agoraphobia F40.01 ; Chronic post- traumatic stress disorder (PTSD) F43.12 and Bipolar 2 disorder F31.81 [facility] [id number] [place] [address] 11834- 8317 March, Type 2 diabetes mellitus with hyperglycemia E11.65 [facility] [id number] [place] [address] 29479- 9042 March, [facility] [id number] [place] [address] 08824- 2047 March, Lumbago M54.5 [facility] [id number] [place] [address] 93154- 7116 March, [facility] [id number] [place] [address] 92757- 3227 March, Irritable bowel syndrome with diarrhea K58.0 ; Primary insomnia F51.01 ; Type 2 diabetes mellitus with hyperglycemia E11.65 and 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 [facility] [id number] [place] [address] 28608- 6844 March, [facility] [id number] [place] [address] 01703- 5663 Jan, [facility] [id number] [place] [address] 18640- 9746 Jan, [facility] [id number] [place] [address] 10223- 6830 Jan, [facility] [id number] [place] [address] 75876- 4479 Jan, [facility] [id number] [place] [address] 90582- 0058 Jan, Dizziness R42 [facility] [id number] [place] [address] 19495- 6029 Jan, Bipolar affective disorder, currently depressed, mild F31.31 ; Panic disorder with agoraphobia F40.01 and Chronic post-traumatic stress disorder (PTSD) F43.12 [facility] [id number] [place] [address] 46306- 2796 17 Jan, 2018 Dizziness R42 [facility] [id number] [place] [address] 74865- 1256 11 Jan, 2018 Chest pain, unspecified type R07.9 ; Exertional dyspnea R06.09 ; Hypertension, unspecified type I10 and Hyperlipidemia, unspecified hyperlipidemia type E78.5 [facility] [address] 99305- 8830 Jan, [facility] [address] 24283- 1195 09 Jan, 2018 Lumbago M54.5 [facility] [address] 33691- 2194 04 Jan, 2018 El's esophageal ulceration K22.10 ; Blister (nonthermal ) of oral cavity, initial encounter S00.522A ; Local infection of the skin and subcutaneous tissue, unspecified L08.9 ; Type 2 diabetes mellitus with hyperglycemia E11.65 ; 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 current use of insulin Z79.4 and Stress incontinence N39.3 [facility] [id number] [place] [address] 37815- 1856 27 Dec, 2017 [facility] [address] 10757- 6281 27 Dec, 2017 [facility] [id number] [place] [address] 26045- 4545 Dec, [facility] [address] [id number] 16 Dec, 2017 Dental examination Z01.20 [facility] [id number] [place] [address] 27886- 0580 15 Dec, 2017 Acute pain of right knee M25.561 [facility] [address] 23058- 1505 Dec, [facility] [id number] [place] [address] 26180- 9219 Dec, [facility] [address] 35220- 9153 Dec, Lumbago M54.5 ; Acute pain of right knee M25.561 and Seasonal allergic rhinitis due to other allergic trigger J30.89 [facility] [address] 98776- 2247 Dec, Type 2 diabetes mellitus with hyperglycemia E11.65 [facility] [address] 42361- 4281 Dec, [facility] [address] 44797- 7159 Dec, [facility] [address] 35642- 4434 Dec, [facility] [id number] [place] [address] 84954- 3681 Dec, [facility] [id number] [place] [address] 52868- 8998 Dec, Chronic post-traumatic stress disorder (PTSD) F43.12 and Panic disorder with agoraphobia F40.01 [facility] [id number] [place] [address] 77515- 0585 13 Dec, 2017 Low back pain M54.5 [facility] [id number] [place] [address] 74126- 4765 12 Dec, 2017 Type 2 diabetes mellitus with hyperglycemia E11.65 ; 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 ; Low back pain M54.5 ; Other chronic pain G89.29 and Encounter for therapeutic drug level monitoring Z51.81 [facility] [id number] [place] [address] 26331- 5451 09 Dec, 2017 Coughing R05 [facility] [address] [place] [address]- 4126 09 Dec, 2017 [facility] [address] [address] 07 Dec, 2017 Dental examination Z01.20 [facility] [address], [place] [address]- 0493 Nov, Type 2 diabetes mellitus without complications E11.9 and Encounter for therapeutic drug level monitoring Z51.81 [facility] [id number] [place] [address] 55403- 3012 Nov, [facility] [id number] [place] [address] 96201- 5275 Oct, Type 2 diabetes mellitus without complications E11.9 [facility] [address] [place] [address] 70450- 2296 Oct, Type 2 diabetes mellitus with hyperglycemia E11.65 [facility] [id number] [place] [address] 02398- 5374 Aug, Type 2 diabetes mellitus without complications E11.9 [facility] [address] [place] [address] 98068- 4750 Aug, Type 2 diabetes mellitus without complications E11.9 ; Hypoglycemia E16.2 ; Lumbago M54.5 ; Stress incontinence of urine N39.3 and History of MT (myocardial infarction) I25.2 [facility] [address], [place] [address]- 0174 Jun, [facility] [address], [place] [address]- 5933 May, [facility] [address] [place] [address] 22144- 0427 Apr, Panic disorder with agoraphobia F40.01 [facility] [address], [place] [address]- 7440 Apr, Panic disorder with agoraphobia F40.01 [facility] [address] [address]- 6151 Apr, [facility] [address] [place] [address] 67118- 1113 March, Other chronic pain G89.29 [facility] [address], [place] [address]- 8152 March, [facility] [id number] [place] [address] 89003- 2814 March, [facility] [id number] [place] [address] 51898- 1767 March, [facility] [id number] [place] [address] 63069- 9196 March, [facility] [id number] [place] [address] 01783- 1103 March, Type 2 diabetes mellitus without complications E11.9 [facility] [id number] [place] [address] 06208- 1350 March, Diarrhea, unspecified type R19.7 [facility] [id number] [place] [address] 99978- 1519 March, Bipolar 2 disorder F31.81 ; Chronic post-traumatic stress disorder (PTSD) F43.12 and Type 2 diabetes mellitus with hyperglycemia E11.65 [facility] [address], [place] [address]- 3160 March, [facility] [address], [place] [address]- 1273 March, [facility] [address], [place] [address]- 7777 March, Hypertension, benign I10 ; Type 2 diabetes mellitus with hyperglycemia E11.65 ; Hepatitis C B19.20 ; Gastritis and duodenitis K29.90 and Dysuria R30.0 [facility] [address], [place] [address]- 7398 March, Hypertension, benign I10 ; Type 2 diabetes mellitus with hyperglycemia E11.65 ; Hepatitis C B19.20 ; Gastritis and duodenitis K29.90 and Dysuria R30.0 [facility] [id number] [place] [address] 29010- 2760 March, Panic disorder with agoraphobia F40.01 ; Chronic post- traumatic stress disorder (PTSD) F43.12 ; Epilepsy G40.909 and Bipolar I disorder with mood-congruent psychotic features F31.9 [facility] [id number] [place] [address] 13637- 8759 March, [facility] [address] 64023- 2664 March, Type 2 diabetes mellitus with hyperglycemia E11.65 [facility] [address] 98496- 2817 18 Jan, 2017 Bipolar I disorder with duy F31.10 [facility] [id number] [place] [address] 50088- 6587 Jan, Bipolar 2 disorder F31.81 ; Chronic post-traumatic stress disorder (PTSD) F43.12 and Type 2 diabetes mellitus with hyperglycemia E11.65 [facility] [id number] [place] [address] 20486- 6918 Jan, [facility] [id number] [place] [address] 16409- 7547 Jan, [facility] [id number] [place] [address] 99365- 1022 Jan, Panic disorder with agoraphobia F40.01 [facility] [id number] [place] [address] 80671- 2192 Jan, Panic disorder with agoraphobia F40.01 ; Bipolar I disorder with mood-congruent psychotic features F31.9 ; Chronic post-traumatic stress disorder (PTSD) F43.12 and Epilepsy G40.909 [facility] [address] [place] [address]- 2546 Jan, [facility] [address], [place] [address]- 6862 Jan, [facility] [address] [place] [address] 18692- 4775 10 Jan, 2017 Type 2 diabetes mellitus without complications E11.9 and Hypoglycemia E16.2 [facility] [id number] [place] [address] 22857- 3512 07 Jan, 2017 Type 2 diabetes mellitus without complications E11.9 ; Primary insomnia F51.01 and Hypertension, benign I10 [facility] [id number] [place] [address] 91665- 6315 Jan, [facility] [id number] [place] [address] 210607861 Jan, [facility] [address] [place] [address] 15381- 9581 Dec, Type 2 diabetes mellitus with hyperglycemia E11.65 [facility] [address], [place] [address]- 7090 Dec, [facility] [id number] [place] [address] 34419- 3013 Dec, Bipolar 2 disorder F31.81 ; Panic disorder with agoraphobia F40.01 ; Chronic post-traumatic stress disorder (PTSD) F43.12 and Epilepsy G40.909 [facility] [address], [place] [address]- 3061 Dec, [facility] [address], [place] [address]- 9019 Dec, [facility] [id number] [place] [address] 87784- 4509 09 Dec, 2016 Bipolar 2 disorder F31.81 ; Panic disorder with agoraphobia F40.01 ; Chronic post-traumatic stress disorder (PTSD) F43.12 and Epilepsy G40.909 [facility] [id number] [place] [address] 72806- 4305 Dec, [facility] [id number] [place] [address] 01452- 2396 Dec, [facility] [id number] [place] [address] 65685- 6079 Dec, [facility] [address] 65926- 7505 Dec, Type 2 diabetes mellitus with hyperglycemia E11.65 ; 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 current use of insulin Z79.4 and Lumbago M54.5 [facility] [address] 25803- 1267 Dec, [facility] [address] 26370- 5456 Dec, [facility] [address] 44748- 8316 Dec, [facility] [id number] [place] [address] 34569 -9402 Dec, Pain of left leg M79.605 and Pain in right leg M79.604 [facility] [id number] [place] [address] 13617- 6000 Dec, [facility] [id number] [place] [address] 16663- 1708 Dec, Type 2 diabetes mellitus with hyperglycemia E11.65 [facility] [id number] [place] [address] 14224- 0980 Dec, [facility] [id number] [place] [address] 08487- 0522 Dec, Type 2 diabetes mellitus with hyperglycemia E11.65 ; 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 current use of insulin Z79.4 ; Vagina, candidiasis B37.3 and Other chronic pain G89.29 [facility] [address] 15717- 2489 Nov, Panic disorder with agoraphobia F40.01 [facility] [address], [place] [address]- 9744 Nov, [facility] [address] [place] [address] 58759- 9874 Nov, [facility] [id number] [place] [address] 82727- 6592 Nov, Hypoglycemia E16.2 [facility] [id number] [place] [address] 01993- 4703 Nov, [facility] [id number] [place] [address] 75516- 3804 Nov, [facility] [id number] [place] [address] 52167- 2992 Nov, [facility] [id number] [place] [address] 24734- 7932 Nov, Type 2 diabetes mellitus with hyperglycemia E11.65 and 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 [facility] [address] [place] [address] 83513- 9686 Nov, Panic disorder with agoraphobia F40.01 ; Bipolar 2 disorder F31.81 ; Chronic post-traumatic stress disorder (PTSD) F43.12 and Epilepsy G40.909 [facility] [id number] [place] [address]5511- 9724 Nov, Panic disorder with agoraphobia F40.01 [facility] [id number] [address] Oct, [facility] [id number] [place] [address] 53680- 9621 Oct, [facility] [id number] [address] Oct, Bipolar 2 disorder F31.81 ; Panic disorder with agoraphobia F40.01 and Mood disorder F39 [facility] [address] [place] [address] 12 Oct, 2016 Diabetes E11.9 ; Type 2 diabetes mellitus with hyperglycemia E11.65 and 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 current use of insulin Z79.4 [facility] [id number] [place] [address] 06 Oct, 2016 [facility] [id number] [place] [address] 61399- 6081 Sep, [facility] [id number] [place] [address] 06293- 7056 Sep, Bipolar 2 disorder F31.81 and Mood disorder F39 [facility] [id number] [place] [address] 04311- 7161 Sep, [facility] [id number] [place] [address]32- 1993 Sep, Uncontrolled type 2 diabetes mellitus without complication, without long-term current use of insulin E11.65 [facility] [address] [address] [address] Sep, [facility] [id number] [place] [address] 49623- 2587 Sep, [facility] [id number] [place] [address] 69482- 2597 Sep, [facility] [id number] [place] [address] 36483- 3176 Sep, [facility] [address], [place] [address] Sep, Bipolar 2 disorder F31.81 ; Chronic post-traumatic stress disorder (PTSD) F43.12 ; Panic disorder with agoraphobia F40.01 and Epilepsy G40.909 [facility] [address], [place] [address] 11 Sep, 2016 Bipolar 2 disorder F31.81 ; PTSD (post-traumatic stress disorder) F43.10 and Panic disorder with agoraphobia F40.01 [facility] [id number] [place] [address] 86501- 5947 Sep, [facility] [id number] [place] [address] Aug, History of seizures Z87.898 ; Panic disorder with agoraphobia F40.01 and Bipolar 2 disorder F31.81 [facility] [id number] [place] [address] 99523- 2668 Aug, [facility] [id number] [place] [address] 53987- 0029 17 Aug, 2016 [facility] [address] 02134- 7755 Aug, [facility] [id number] [place] [address] 31857- 0987 Aug, [facility] [id number] [place] [address] 96400- 1004 Aug, [facility] [id number] [place] [address] 39867- 6862 Aug, [facility] [id number] [place] [address] 43223- 3490 Aug, Hypoglycemia E16.2 and Bilateral impacted cerumen H61.23 [facility] [id number] [place] [address] 07221- 1927 Aug, [facility] [id number] [place] [address] 81352- 9679 Jul, [facility] [id number] [place] [address] 03794- 8297 21 Jul, 2016 [facility] [id number] [place] [address] 70421- 2079 15 Jul, 2016 Bipolar 2 disorder F31.81 ; Panic disorder with agoraphobia F40.01 ; PTSD (post-traumatic stress disorder) F43.10 and Epilepsy G40.909 [facility] [id number] [place] [address] 98704- 3076 Jul, [facility] [id number] [place] [address] 42835- 0088 Jul, Type 2 diabetes mellitus without complications E11.9 and Coughing R05 [facility] [id number] [place] [address] 00431- 8549 Jul, [facility] [id number] [place] [address] 84588- 3653 Jun, [facility] [address] 15092- 4442 Jun, Bipolar 2 disorder F31.81 ; PTSD (post-traumatic stress disorder) F43.10 and Panic disorder with agoraphobia F40.01 [facility] [address] 97289- 4553 Jun, [facility] [id number] [place] [address] 10220- 9584 Jun, [facility] [address] 00667- 9259 Jun, [facility] [id number] [place] [address] 98393- 2485 Jun, Type 2 diabetes mellitus without complications E11.9 and COPD (chronic obstructive pulmonary disease) J44.9 [facility] [id number] [place] [address] [id number] May, Dental examination Z01.20 and Dental caries K02.9 [facility] [id number] [place] [address] 53479- 5471 May, Bipolar 2 disorder F31.81 ; PTSD (post-traumatic stress disorder) F43.10 and Panic disorder with agoraphobia F40.01 [facility] [id number] [place] [address] 63061- 0546 May, Lumbago with sciatica, right side M54.41 ; Other chronic pain G89.29 and Uncontrolled type 2 diabetes mellitus without complication, without long-term current use of insulin E11.65 [facility] [id number] [place] [address] 60227- 5699 May, Chronic bronchitis, unspecified chronic bronchitis type J42 [facility] [id number] [place] [address] 35900- 1556 May, [facility] [id number] [place] [address] 36047- 1091 May, [facility] [id number] [place] [address] 70282- 2818 May, Chest pain, unspecified type R07.9 ; Tobacco use Z72.0 ; Type 2 diabetes mellitus without complications E11.9 ; Essential hypertension I10 ; Hyperlipidemia, unspecified hyperlipidemia type E78.5 ; Obesity (BMI 30- 39.9) E66.9 ; History of hypothyroidism Z86.39 ; Chronic obstructive pulmonary disease, unspecified COPD type J44.9 ; Anxiety F41.9 ; Bilateral claudication of lower limb I73.9 and Bipolar 2 disorder F31.81 [facility] [id number] [place] [address] 87267- 2117 May, Bipolar 2 disorder F31.81 ; Panic disorder with agoraphobia F40.01 and Tobacco abuse Z72.0 [facility] [id number] [place] [address] 62216- 3071 Apr, [facility] [id number] [place] [address] 27929- 5517 Apr, [facility] [id number] [place] [address] 63806- 7566 Apr, [facility] [id number] [place] [address] 77891- 7376 Apr, Bipolar 2 disorder F31.81 ; Panic disorder with agoraphobia F40.01 and PTSD (post-traumatic stress disorder) F43.10 [facility] [id number] [place] [address] 11953- 0811 23 Apr, 2016 Chronic bronchitis, unspecified chronic bronchitis type J42 ; Cervical neuritis M54.12 and Thoracic neuritis M54.14 [facility] [id number] [place] [address] 23880- 6491 15 Apr, 2016 [facility] [address] 78570- 7289 15 Apr, 2016 Cervicalgia M54.2 [facility] [address] 95169- 8024 14 Apr, 2016 Bipolar 2 disorder F31.81 ; Panic disorder with agoraphobia F40.01 and PTSD (post-traumatic stress disorder) F43.10 [facility] [address] 21317 -5935 13 Apr, 2016 [facility] [address] 73421 -3873 09 Apr, 2016 Cough R05 and Tobacco dependence F17.200 [facility] [address] 10342- 4774 06 Apr, 2016 [facility] [address] 78265- 5169 Apr, [facility] [address] 52396- 7088 March, Bipolar 2 disorder F31.81 ; Panic disorder with agoraphobia F40.01 and Generalized anxiety disorder F41.1 [facility] [id number] [place] [address] 13332- 4240 March, Closed displaced fracture of fifth metatarsal bone of right foot with routine healing, subsequent encounter S92.351D [facility] [id number] [place] [address] 93945- 0762 March, Bronchitis J40 [facility] [address] 76305- 4197 March, [facility] [id number] [place] [address] 07982- 8886 March, [facility] [id number] [place] [address] 44379- 8514 March, Foot pain, right M79.671 ; Cervicalgia M54.2 and 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 mellitus without complication, unspecified manager 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 insulin use status E11.9 [facility] [id number] [place] [address] 28397- 3001 March, Fracture of fifth metatarsal bone of right foot S92.351A [facility] [address] 78828- 8109 March, [facility] [address] 59196- 9204 Jan, Fracture of fifth metatarsal bone of right foot S92.351A [facility] [id number] [place] [address] 18758- 7767 Jan, Bipolar 2 disorder F31.81 ; PTSD (post-traumatic stress disorder) F43.10 ; Panic disorder with agoraphobia F40.01 and Epilepsy G40.909 [id number] [place] [address] 76605- 5876 Jan, History of MT (myocardial infarction) I25.2 and History of high cholesterol Z86.39 [facility] [id number] [place] [address] 01446- 1028 Jan, Bipolar 2 disorder F31.81 ; Panic disorder with agoraphobia F40.01 ; Tobacco abuse Z72.0 and PTSD (post-traumatic stress disorder) F43.10 [facility] [id number] [place] [address] 18271- 0953 Jan, Fracture of fifth metatarsal bone of right foot S92.351A [facility] [address] 11970- 3293 Jan, [facility] [address] [place] [address] 96193- 0036 Jan, History of high cholesterol Z86.39 [facility] [id number] [place] [address] 70470- 4676 Jan, History of MT (myocardial infarction) I25.2 [facility] [id number] [place] [address] 98390- 3047 Jan, [facility] [id number] [place] [address] 46293- 4196 Dec, Back pain M54.9 ; Diabetes E11.9 ; Right knee pain M25.561 and Chest pain R07.9 [facility] [id number] [place] [address] 74851- 6424 Dec, [facility] [id number] [place] [address] 45685- 8970 Dec, [facility] [id number] [place] [address] 10275- 2842 Dec, Cervicalgia M54.2 [facility] [id number] [place] [address] 93361- 6737 Dec, Bipolar 2 disorder F31.81 ; PTSD (post-traumatic stress disorder) F43.10 ; Panic disorder with agoraphobia F40.01 and Epilepsy G40.909 [facility] [id number] [place] [address] 24939- 0964 08 Jan, 2016 Bipolar 2 disorder F31.81 ; PTSD (post-traumatic stress disorder) F43.10 and Panic disorder with agoraphobia F40.01 [facility] [id number] [place] [address] 89180- 5778 Dec, Diabetes E11.9 [facility] [id number] [place] [address] 91453- 8163 Dec, [facility] [address] [place] [address]- 6547 Dec, Other chronic pain G89.29 ; Hepatitis C B19.20 and History of seizures Z87.898 [facility] [id number] [place] [address] 13873- 2927 24 Dec, 2015 [facility] [id number] [place] [address] 20280- 6658 Dec, Bipolar 2 disorder F31.81 and Other chronic pain G89.29 [facility] [id number] [place] [address] 34631- 7524 Dec, Cervicalgia M54.2 and Diabetes E11.9 [facility] [id number] [place] [address] 20569- 8754 Dec, [facility] [id number] [place] [address] 57276- 9474 Dec, [facility] [id number] [place] [address] 77299- 1024 Dec, [facility] [id number] [place] [address] 71131- 2153 Dec, [facility] [id number] [place] [address] 40872- 9918 Dec, Type 2 diabetes mellitus without complications E11.9 [facility] [id number] [place] [address] 65670- 7009 10 Dec, 2015 [facility] [id number] [place] [address] 08887- 4868 09 Dec, 2015 History of seizures Z87.898 and Hepatitis C B19.20 [facility] [id number] [place] [address] 39392- 4102 08 Dec, 2015 Hepatitis C B19.20 [facility] [id number] [place] [address] 63638- 2732 Dec, [facility] [id number] [place] [address] 59274- 7647 04 Dec, 2015 Cervicalgia M54.2 ; COPD (chronic obstructive pulmonary disease) J44.9 and Hepatitis C B19.20 [facility] [id number] [place] [address] 08321- 8554 02 Dec, 2015 Bipolar 2 disorder F31.81 ; History of hypertension Z86.79 ; History of anxiety Z86.59 ; Panic disorder with agoraphobia F40.01 and Epilepsy G40.909 [facility] [id number] [place] [address] 04241- 9932 Nov, [facility] [address] 26057- 4120 Nov, [address] 85405- 0448 Nov, History of seizures Z87.898 ; OAB (overactive bladder) N32.81 ; Lumbago M54.5 ; Other chronic pain G89.29 ; Cervicalgia M54.2 ; Tobacco abuse Z72.0 ; Tobacco abuse counseling Z71.6 and Impaired fasting glucose R73.01 [facility] [id number] [place] [address] 68356- 9701 Nov, Bipolar 2 disorder F31.81 ; PTSD (post-traumatic stress disorder) F43.10 ; History of anxiety Z86.59 ; History of COPD Z87.09 ; Panic disorder with agoraphobia F40.01 and Moderate depressed bipolar I disorder F31.32 [facility] [id number] [place] [address] 54765- 9412 12 Nov, 2015 PTSD (post-traumatic stress disorder) F43.10 [facility] [id number] [place] [address] [id number] 11 Nov, 2015 Dental examination Z01.20 and Dental caries K02.9 [address] [id number] [place] [address] 36097- 7226 08 Nov, 2015 History of hypertension Z86.79 ; History of hypothyroidism Z86.39 ; History of high cholesterol Z86.39 ; History of COPD Z87.09 and Overactive bladder N32.[address] 38397- 4669 Nov, Bipolar 2 disorder F31.81 and PTSD (post-traumatic stress disorder) F43.[address] 57262- 5255 Nov, PTSD (post-traumatic stress disorder) F43.10 ; Panic disorder with agoraphobia F40.01 ; Epilepsy G40.909 and Moderate depressed bipolar I disorder F31.[address] 17553- 1266 Nov, [address] 88421- 8559 Nov, [address] 27354- 6799 Oct, [id number] [place] [address] 38151- 9255 Oct, Generalized anxiety disorder F41.1 ; Major depression, recurrent F33.9 and PTSD (post-traumatic stress disorder) F43.10 [address] [id number] [place] [address] 53507- 1133 Oct, Elevated fasting glucose R73.01 [id number] [place] [address] 31195- 1619 Oct, Elevated fasting glucose R73.01 [address] [id number] [place] [address] 60731- 5986 Oct, History of COPD Z87.09 [id number] [place] [address] 00910- 0191 15 Oct, 2015 General medical exam Z00.00 ; History of hypertension Z86.79 ; History of hypothyroidism Z86.39 ; History of hepatitis Z86.19 ; History of high cholesterol Z86.39 and History of seizures Z87.898 [facility] [address], [place] [address]- 9384 10 Oct, 2015 General medical exam Z00.00 ; History of hypertension Z86.79 ; History of hypothyroidism Z86.39 ; Bipolar 2 disorder F31.81 ; PTSD ( post-traumatic stress disorder) F43.10 ; History of hepatitis Z86.19 ; History of high cholesterol Z86.39 ; History of anxiety Z86.59 ; History of seizures Z87.898 ; History of MT (myocardial infarction) I25.2 and History of COPD Z87.09 [facility] [id number] [place] [address] 34708- 1667 10 Oct, 2015 Generalized anxiety disorder F41.1 ; Depression F32.9 and PTSD (post-traumatic stress disorder) F43.10 [facility] [id number] [address]- 7024 Jan, [facility] [id number] [place] [address]- 1774 Jan, [facility] [id number] [address]- 0122 Jun, [facility] [address] [place] [id number] Jun, [facility] [address] [address]- 4744 May, [facility] [id number] [place] [address] 07428- 3415 May, [facility] [address] [place] [id number] May, [facility] [id number] [place] [address]- 3605 May, [facility] [address] [place] [id number] May, [facility] [address], [place] [address]- 5946 May, IMMUNIZATIONS No Known Immunizations SOCIAL HISTORY Never Assessed REASON FOR VISIT Medication question PLAN OF CARE VITAL SIGNS MEDICATIONS Unknown [...]
--- OUTSIDE RECORDS SUMMARY | 2019-01-26 07:21 | XMS REPORT ---
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 Name Role Phone FRANK LUNA Unavailable PROBLEMS Type Condition ICD9-CM Code TXZ22-LF Code Onset Dates Condition Status SNOMED Code Problem OAB (overactive bladder) N32.81 Active 864176709 Problem Epilepsy G40.909 Active 46986373 Problem Cervicalgia M54.2 Active 81574595 Problem Other chronic pain G89.29 Active 56947253 Problem Tobacco abuse Z72.0 Active 41102667 Problem Lumbago M54.5 Active 845419639 Problem Hepatitis C B19.20 Active 79229324 Problem COPD (chronic obstructive pulmonary disease) J44.9 Active 16388247 Problem Diabetes E11.9 Active 65306818 Problem Bipolar I disorder with duy F31.10 Active 35382665 Problem Type 2 diabetes mellitus without complications E11.9 Active 884797563 Problem Stress incontinence of urine N39.3 Active 40417035 Problem Bilateral claudication of lower limb I73.9 Active 787913678 Problem Seasonal allergic rhinitis due to other allergic trigger J30.89 Active 672781957 Problem Hyperlipidemia, unspecified hyperlipidemia type E78.5 Active 89805040 Problem Hypertension, unspecified type I10 Active 77491381 Problem Chronic tension-type headache, not intractable G44.229 Active 453494985 Problem 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 mellitus without complication, without long -term current use of insulin E11.9 Active 634335342 Problem Type 2 diabetes mellitus with hyperglycemia E11.65 Active 476401376 Problem Chronic post-traumatic stress disorder (PTSD) F43.12 Active 810158284 Problem History of hypothyroidism Z86.39 Active 844420028 Problem Hypoglycemia E16.2 Active 642037577 Problem El's esophageal ulceration K22.10 Active 143936180 Problem Bipolar affective disorder, currently depressed, mild F31.31 Active 499906825 Problem Irritable bowel syndrome with diarrhea K58.0 Active 579123229 Problem Stress incontinence N39.3 Active 98022021 Problem History of hypertension Z86.79 Active 188971253 Problem Uncontrolled type 2 diabetes mellitus without complication, without long-term current use of insulin E11.65 Active 091401107 Problem Panic disorder with agoraphobia F40.01 Active 61115738 Problem Type 2 diabetes mellitus with hyperglycemia E11.65 Active 821771915 Problem History of seizures Z87.898 Active 592633895 Problem retirement current use of insulin Z79.4 Active 656492971 Problem History of [place] (myocardial infarction) I25.2 Active 070427568 Problem Mood disorder F39 Active 71832689 Problem Bipolar 2 disorder F31.81 Active 24659284 Problem Gastritis and duodenitis K29.90 Active 911365612 Problem History of high cholesterol Z86.39 Active 709068393 Problem Bipolar I disorder with mood-congruent psychotic features F31.9 Active 677584043 Problem Hypertension, benign I10 Active 73565170 Problem Primary insomnia F51.01 Active 6066116 ALLERGIES No Information ENCOUNTERS Encounter Location Date Diagnosis [place] [address] [address] Nov, [facility] [address] [address]- [address]20 Jul, [facility] [address] 537[address]- 7694 Jul, [facility] [address] [place] [id number] [place] [address] 08889- 1807 Jul, Bipolar 2 disorder F31.81 ; Panic disorder with agoraphobia F40.01 and Chronic post-traumatic stress disorder (PTSD) F43.12 [facility] [address] 08724- 9151 Jun, [facility] [address] 18963- 9111 Jun, [facility] [address] 13710- 8802 Jun, Lumbago M54.5 [facility] [address] [facility] [id number] [address] Jun, Type 2 diabetes mellitus with hyperglycemia E11.65 [facility] [address] [place] [id number] [place] [address] 06021- 1106 Jun, [facility] [address] [place] [id number] [place] [address] 31873- 2669 Jun, Type 2 diabetes mellitus with hyperglycemia E11.65 ; El 's esophageal ulceration K22.10 and Lumbago M54.5 [facility] [address] [place] [id number] [place] [address] 28598- 0713 Jun, Type 2 diabetes mellitus with hyperglycemia E11.65 [facility] [address] [place] [id number] [place] [address] 91645- 3406 Jun, [facility] [address] [place] [id number] [place] [address] 83762- 4501 Jun, [facility] [address] [place] [address] [id number] [place] [address] 12087- 0798 Jun, Bipolar affective disorder, currently depressed, mild F31.31 ; Chronic post-traumatic stress disorder (PTSD) F43.12 and Panic disorder with agoraphobia F40.01 [facility] [address] [place] [address] 88383- 2144 Jun, [facility] [address] [place] [address] 74559- 4747 Jun, [facility] [address] [place] [address] 11948- 7983 Jun, Type 2 diabetes mellitus with hyperglycemia E11.65 [facility] [address] [place] [id number] [place] [address] 43827- 9774 Jun, Uncontrolled type 2 diabetes mellitus with hyperglycemia E11.65 [facility] [address] [place] [address] 09460- 2060 Jun, [facility] [address] [id number] [address] 270[address] May, Lumbago M54.5 [facility] [address] [id number] May, [facility] [address] [place] [id number] [place] [address] 8816 May, [facility] [address], [place] [address]- 3906 May, [facility] [address] [place] [id number] [place] [address] 0042 May, [facility] [address] [address] [id number] [place] [address], [place] [address]- 2295 May, [facility] [address] [place] [id number] [address] 1361 May, [facility] [address] [place] [address] 10409- 2098 May, [facility] [address], [place] [address]- 1430 May, Lumbago M54.5 [facility] [address], [place] [address]- 0982 May, [facility] [address], [place] [address] Apr, Abnormal CT of the chest R93.8 [facility] [address] [address]- 4170 Apr, Bipolar 2 disorder F31.81 ; Chronic post-traumatic stress disorder (PTSD) F43.12 and Panic disorder with agoraphobia F40.01 [facility] [address] [address] [address] Apr, [address] of the chest R93.8 [facility] [address] [address] [address], [address] of the chest R93.8 [facility] [address] [place] [id number] [place] [address] 60018- 7442 Apr, [place] [address] 78551- 2829 Apr, Type 2 diabetes mellitus with hyperglycemia E11.65 [place] [address] [place] [id number] [place] [address] 22353- 1446 Apr, 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 mellitus without complication, without long-term current use of insulin E11.9 ; Watery eyes H04.203 ; Low back pain M54.5 ; Other chronic pain G89.29 ; Chronic tension-type headache, not intractable G44.229 ; Uncontrolled type 2 diabetes mellitus without complication , without long-term current use of insulin E11.65 and Bronchitis J40 [place] [address] [place] [id number] [place] [address] 33262- 4980 Apr, [place] [address] [place] [id number] [place] [address] 71144- 1909 Apr, Lumbago M54.5 [place] [address] [place] [id number] [place] [address] 61613- 3681 March, [facility] [address] [place] [id number] [place] [address] 15080 -8919 March, Cough R05 ; Pneumonia due to infectious organism, unspecified laterality, unspecified part of lung J18.9 and Non-intractable vomiting with nausea, unspecified vomiting type R11.2 [place] [address] [place] [id number] [place] [address] 78576- 2680 March, Bronchitis J40 [facility] [address] [place] [id number] [place] [address] 86010- 2501 March, [place] [address] 03806- 6291 March, El's esophageal ulceration K22.10 and Type 2 diabetes mellitus with hyperglycemia E11.65 [place] [address] [place] [address]- 1810 March, Panic disorder with agoraphobia F40.01 ; Chronic post- traumatic stress disorder (PTSD) F43.12 and Bipolar 2 disorder F31.81 [facility] [address] [place] [id number] [place] [address] 45768- 0572 March, Type 2 diabetes mellitus with hyperglycemia E11.65 [place] [address] [place] [id number] [place] [address] 67260- 3271 March, [facility] [address] [place] [id number] [place] [address] 73083- 7356 March, Lumbago M54.5 [place] [address] [place] [id number] [place] [address] 88709- 6266 March, [facility] [address] [place] [id number] [place] [address] 80058- 9421 March, Irritable bowel syndrome with diarrhea K58.0 ; Primary insomnia F51.01 ; Type 2 diabetes mellitus with hyperglycemia E11.65 and rn long term care current use of insulin Z79.4 [place] [address] [place] [id number] [place] [address] 24715- 0987 March, [place] [address] [place] [id number] [place] [address] 18657- 8993 Jan, [facility] [address] [place] [id number] [place] [address] 35205- 5863 Jan, [facility] [address] [place] [id number] [place] [address] 20886- 4449 Jan, [facility] [address] [place] [id number] [place] [address] 02773- 0059 Jan, [facility] [address] [place] [id number] [place] [address] 23452- 7162 Jan, Dizziness R42 [facility] [address] [place] [id number] [place] [address] 56151- 1851 Jan, Bipolar affective disorder, currently depressed, mild F31.31 ; Panic disorder with agoraphobia F40.01 and Chronic post-traumatic stress disorder (PTSD) F43.12 [place] [address] 31965- 7804 17 Jan, 2018 Dizziness R42 [place] [address] [place] [id number] [place] [address] 97727- 1724 11 Jan, 2018 Chest pain, unspecified type R07.9 ; Exertional dyspnea R06.09 ; Hypertension, unspecified type I10 and Hyperlipidemia, unspecified hyperlipidemia type E78.5 [place] [address] 51157- 5285 Jan, [place] [address] 32201- 6523 Jan, Lumbago M54.[address] 28816- 4423 04 Jan, 2018 El's esophageal ulceration K22.10 ; Blister (nonthermal ) of oral cavity, initial encounter S00.522A ; Local infection of the skin and subcutaneous tissue, unspecified L08.9 ; Type 2 diabetes mellitus with hyperglycemia E11.65 ; rn long term care current use of insulin Z79.4 and Stress incontinence N39.3 [place] [address] [place] [id number] [place] [address] 46868- 0742 Dec, [place] [address] 41765- 6211 Dec, [place] [address] [place] [id number] [place] [address] 59379- 7408 Dec, [facility] [address] [id number] Dec, Dental examination Z01.20 [place] [address] [place] [id number] [place] [address] 13977- 6085 15 Dec, 2017 Acute pain of right knee M25.561 [place] [address] 70038- 4393 Dec, [place] [address] [place] [id number] [place] [address] 40276- 6459 Dec, [place] [address] [place] [id number] [place] [address] 67468- 8857 Dec, Lumbago M54.5 ; Acute pain of right knee M25.561 and Seasonal allergic rhinitis due to other allergic trigger J30.89 [place] [address] [place] [id number] [place] [address] 55654- 7007 Dec, Type 2 diabetes mellitus with hyperglycemia E11.65 [place] [address] [place] [id number] [place] [address] 86869- 5113 Dec, [place] [address] [place] [id number] [place] [address] 77911- 3989 Dec, [place] [address] [place] [id number] [place] [address] 49189- 5832 23 Dec, 2017 [place] [address] [place] [id number] [place] [address] 34970- 3486 Dec, [place] [address] [place] [id number] [place] [address] 93772- 9857 Dec, Chronic post-traumatic stress disorder (PTSD) F43.12 and Panic disorder with agoraphobia F40.01 [place] [address] [place] [id number] [place] [address] 09928- 3934 13 Dec, 2017 Low back pain M54.5 [place] [address] [place] [id number] [place] [address] 11539- 8339 12 Dec, 2017 Type 2 diabetes mellitus with hyperglycemia E11.65 ; retirement current use of insulin Z79.4 ; Low back pain M54.5 ; Other chronic pain G89.29 and Encounter for therapeutic drug level monitoring Z51.81 [place] [address] [place] [id number] [place] [address] 22219- 6692 09 Dec, 2017 Coughing R05 [place] [address], [place] [address]- 6939 Dec, [facility] [address] [address] Dec, Dental examination Z01.20 [facility] [address] [place] [id number] [place] [address] 62322- 9254 Nov, Type 2 diabetes mellitus without complications E11.9 and Encounter for therapeutic drug level monitoring Z51.81 [place] [address] [place] [id number] [place] [address] 62877- 6619 Nov, [place] [address] [place] [id number] [place] [address] 91120- 0303 Oct, Type 2 diabetes mellitus without complications E11.9 [place] [address] [place] [id number] [place] [address] 07703- 5442 Oct, Type 2 diabetes mellitus with hyperglycemia E11.65 [place] [address] [place] [id number] [place] [address] 53178- 9305 Aug, Type 2 diabetes mellitus without complications E11.9 [place] [address] [place] [id number] [place] [address] 79033- 6287 Aug, Type 2 diabetes mellitus without complications E11.9 ; Hypoglycemia E16.2 ; Lumbago M54.5 ; Stress incontinence of urine N39.3 and History of [place] (myocardial infarction) I25.2 [place] [address] [place] [address] 68405- 5096 Jun, [place] [address] [place] [address] 50410- 0122 May, [place] [address] [place] [id number] [place] [address] 22505- 4512 Apr, Panic disorder with agoraphobia F40.01 [place] [address] [place] [address] 37751- 7451 Apr, Panic disorder with agoraphobia F40.01 [place] [address], [place] [address]- 8779 Apr, [facility] [address] [place] [id number] [place] [address] 03692- 0128 March, Other chronic pain G89.29 [facility] [address], [place] [address]- 8760 March, [facility] [address] [place] [id number] [place] [address] 92709- 9799 March, [facility] [address], [place] [address]- 0532 March, [facility] [address] [place] [id number] [place] [address] 31567- 2596 March, [facility] [address] [place] [address] 81756- 4462 March, Type 2 diabetes mellitus without complications E11.9 [facility] [address], [place] [address]- 8327 March, Diarrhea, unspecified type R19.7 [facility] [address] [place] [address] 00658- 3096 March, Bipolar 2 disorder F31.81 ; Chronic post-traumatic stress disorder (PTSD) F43.12 and Type 2 diabetes mellitus with hyperglycemia E11.65 [facility] [address] [address]- 8162 March, [facility] [address], [place] [address]- 1909 March, [facility] [address], [place] [address]- 9144 March, Hypertension, benign I10 ; Type 2 diabetes mellitus with hyperglycemia E11.65 ; Hepatitis C B19.20 ; Gastritis and duodenitis K29.90 and Dysuria R30.0 [facility] [address], [place] [address]- 9082 March, Hypertension, benign I10 ; Type 2 diabetes mellitus with hyperglycemia E11.65 ; Hepatitis C B19.20 ; Gastritis and duodenitis K29.90 and Dysuria R30.0 [place] [address] [place] [id number] [place] [address] 69541- 3219 March, Panic disorder with agoraphobia F40.01 ; Chronic post- traumatic stress disorder (PTSD) F43.12 ; Epilepsy G40.909 and Bipolar I disorder with mood-congruent psychotic features F31.9 [place] [address] [place] [id number] [place] [address] 77909- 8909 March, [place] [address] [place] [id number] [place] [address] 94205- 4131 March, Type 2 diabetes mellitus with hyperglycemia E11.65 [place] [address] [place] [id number] [place] [address] 18633- 9266 18 Jan, 2017 Bipolar I disorder with duy F31.10 [place] [address] [place] [id number] [place] [address] 85237- 6947 Jan, Bipolar 2 disorder F31.81 ; Chronic post-traumatic stress disorder (PTSD) F43.12 and Type 2 diabetes mellitus with hyperglycemia E11.65 [place] [address] [place] [id number] [place] [address] 50471- 0788 Jan, [place] [address] [place] [id number] [place] [address] 84699- 3140 Jan, [place] [address] [place] [id number] [place] [address] 96798- 1762 14 Jan, 2017 Panic disorder with agoraphobia F40.01 [place] [address] 22048- 4149 Jan, Panic disorder with agoraphobia F40.01 ; Bipolar I disorder with mood-congruent psychotic features F31.9 ; Chronic post-traumatic stress disorder (PTSD) F43.12 and Epilepsy G40.909 [place] [address] [place] [id number] [place] [address] 86045- 5344 Jan, [facility] [address] [place] [id number] [place] [address] 05794- 5928 Jan, [facility] [address] [place] [id number] [place] [address] 03609- 8595 10 Jan, 2017 Type 2 diabetes mellitus without complications E11.9 and Hypoglycemia E16.2 [facility] [address] 17095- 8550 07 Jan, 2017 Type 2 diabetes mellitus without complications E11.9 ; Primary insomnia F51.01 and Hypertension, benign I10 [facility] [address] [place] [id number] [place] [address] 06560- 5629 Jan, [facility] [address] [place] [id number] [place] [address] [id number] Jan, [facility] [address] [place] [id number] [place] [address] 86423- 1315 Dec, Type 2 diabetes mellitus with hyperglycemia E11.65 [facility] [address] [place] [id number] [place] [address] 83274- 2064 Dec, [facility] [address] [place] [id number] [place] [address] 08137- 8440 Dec, Bipolar 2 disorder F31.81 ; Panic disorder with agoraphobia F40.01 ; Chronic post-traumatic stress disorder (PTSD) F43.12 and Epilepsy G40.909 [facility] [address] [place] [id number] [place] [address] 73765- 1369 Dec, [facility] [address] [place] [id number] [place] [address] 48125- 0427 Dec, [facility] [address] [place] [id number] [place] [address] 36261- 1981 Dec, Bipolar 2 disorder F31.81 ; Panic disorder with agoraphobia F40.01 ; Chronic post-traumatic stress disorder (PTSD) F43.12 and Epilepsy G40.909 [facility] [address] [place] [id number] [place] [address] 61105- 7291 Dec, [facility] [address] [id number] [place] [address] 74506- 8804 Dec, [facility] [address] [place] [id number] [place] [address] 24678- 4337 Dec, [facility] [address] 14098- 4111 Dec, Type 2 diabetes mellitus with hyperglycemia E11.65 ; retirement current use of insulin Z79.4 and Lumbago M54.5 [place] [address] 80229- 0292 Dec, [place] [address] [place] [id number] [place] [address] 38681- 0366 Dec, [facility] [address] 50183- 2259 Dec, [facility] [address] [place] [id number] [place] [address] 82872 -5280 Dec, Pain of left leg M79.605 and Pain in right leg M79.604 [place] [address] [place] [id number] [place] [address] 21704- 5931 Dec, [facility] [address] [place] [id number] [place] [address] 60633- 0399 Dec, Type 2 diabetes mellitus with hyperglycemia E11.65 [place] [address] [place] [id number] [place] [address] 55597- 5944 Dec, [facility] [address] 94600- 2378 Dec, Type 2 diabetes mellitus with hyperglycemia E11.65 ; rn long term care current use of insulin Z79.4 ; Vagina, candidiasis B37.3 and Other chronic pain G89.29 [facility] [address] [place] [id number] [place] [address] 46415- 4663 Nov, Panic disorder with agoraphobia F40.01 [facility] [address], [place] [address]- 0201 Nov, [facility] [address] [place] [address] 37707- 7897 Nov, [facility] [address] [place] [address] 11143- 3447 Nov, Hypoglycemia E16.2 [facility] [id number] [place] [address] 89402- 1805 Nov, [facility] [id number] [place] [address] 45574- 5315 Nov, [facility] [id number] [place] [address] 21120- 5160 Nov, [facility] [id number] [place] [address] 70538- 2647 Nov, Type 2 diabetes mellitus with hyperglycemia E11.65 and rn long term care current use of insulin Z79.4 [facility] [address] [place] [address] 18530- 9478 Nov, Panic disorder with agoraphobia F40.01 ; Bipolar 2 disorder F31.81 ; Chronic post-traumatic stress disorder (PTSD) F43.12 and Epilepsy G40.909 [facility] [address] [place] [address] 82150- 6305 Nov, Panic disorder with agoraphobia F40.01 [facility] [address], [place] [address]- 5442 Oct, [facility] [id number] [place] [address] 40799- 6584 Oct, [facility] [address] [place] [address] 05013- 3526 Oct, Bipolar 2 disorder F31.81 ; Panic disorder with agoraphobia F40.01 and Mood disorder F39 [facility] [address], [place] [address]- 1324 12 Oct, 2016 Diabetes E11.9 ; Type 2 diabetes mellitus with hyperglycemia E11.65 and rn long term care current use of insulin Z79.4 [facility] [address], [place] [address] 2546 06 Oct, 2016 [facility] [id number] [place] [address] 34681- 5543 Sep, [facility] [id number] [place] [phone] Sep, Bipolar 2 disorder F31.81 and Mood disorder F39 [facility] [id number] [place] [phone] [phone] Sep, [facility] [id number] [place] [phone]- [phone] Sep, Uncontrolled type 2 diabetes mellitus without complication, without long-term current use of insulin E11.65 [facility] [id number], [place] [address] Sep, [facility] [id number] [place] [address]6931- 3502 Sep, [facility] [address], [place] [address] Sep, [facility] [address], [place] [address] 5[address] Sep, [facility] [address], [place] [address] 07[address] Sep, Bipolar 2 disorder F31.81 ; Chronic post-traumatic stress disorder (PTSD) F43.12 ; Panic disorder with agoraphobia F40.01 and Epilepsy G40.909 [facility] [address], [place] [address] 11 Sep, 2016 Bipolar 2 disorder F31.81 ; PTSD (post-traumatic stress disorder) F43.10 and Panic disorder with agoraphobia F40.01 [facility] [address], [place] [address] 25[address] Sep, [facility] [id number] [place] [address] 94370- 2544 Aug, History of seizures Z87.898 ; Panic disorder with agoraphobia F40.01 and Bipolar 2 disorder F31.81 [facility] [id number] [place] [address] 47029- 2712 Aug, [facility] [id number] [place] [address] 88657- 1690 17 Aug, 2016 [facility] [id number] [place] [address] 76673- 8044 Aug, [facility] [id number] [place] [address] 24651- 0057 Aug, [facility] [id number] [place] [address] 27490- 3905 Aug, [facility] [id number] [place] [address] 31368- 8103 Aug, [facility] [id number] [place] [address] 67029- 4305 Aug, Hypoglycemia E16.2 and Bilateral impacted cerumen H61.23 [facility] [id number] [place] [address] 58541- 2117 Aug, [facility] [id number] [place] [address] 50287- 2545 Jul, [facility] [id number] [place] [address] 04289- 2828 21 Jul, 2016 [facility] [id number] [place] [address] 92579- 1434 15 Jul, 2016 Bipolar 2 disorder F31.81 ; Panic disorder with agoraphobia F40.01 ; PTSD (post-traumatic stress disorder) F43.10 and Epilepsy G40.909 [facility] [address], [place] [address] 55[address] Jul, [facility] [id number] [place] [address] 92866- 0265 Jul, Type 2 diabetes mellitus without complications E11.9 and Coughing R05 [facility] [id number] [place] [address] 43651- 8553 Jul, [facility] [id number] [place] [address] 36404- 0878 Jun, [facility] [id number] [place] [address] 88695- 9013 Jun, Bipolar 2 disorder F31.81 ; PTSD (post-traumatic stress disorder) F43.10 and Panic disorder with agoraphobia F40.01 [facility] [id number] [place] [address] 06448- 8852 Jun, [facility] [id number] [place] [address] 81141- 7790 Jun, [facility] [id number] [place] [address] 48281- 9328 Jun, [facility] [id number] [place] [address] 35933- 0627 Jun, Type 2 diabetes mellitus without complications E11.9 and COPD (chronic obstructive pulmonary disease) J44.9 [facility] [address] [id number] May, Dental examination Z01.20 and Dental caries K02.9 [facility] [id number] [place] [address] 62897- 7631 May, Bipolar 2 disorder F31.81 ; PTSD (post-traumatic stress disorder) F43.10 and Panic disorder with agoraphobia F40.01 [facility] [address] [place] [address] 30189- 9958 May, Lumbago with sciatica, right side M54.41 ; Other chronic pain G89.29 and Uncontrolled type 2 diabetes mellitus without complication, without long-term current use of insulin E11.65 [facility] [address] [place] [address] 48159- 0711 May, Chronic bronchitis, unspecified chronic bronchitis type J42 [facility] [id number] [place] [address] 41889- 3290 May, [facility] [id number] [place] [address] 33871- 9855 May, [facility] [id number] [place] [address] 20066- 4170 May, Chest pain, unspecified type R07.9 ; Tobacco use Z72.0 ; Type 2 diabetes mellitus without complications E11.9 ; Essential hypertension I10 ; Hyperlipidemia, unspecified hyperlipidemia type E78.5 ; Obesity (BMI 30- 39.9) E66.9 ; History of hypothyroidism Z86.39 ; Chronic obstructive pulmonary disease, unspecified COPD type J44.9 ; Anxiety F41.9 ; Bilateral claudication of lower limb I73.9 and Bipolar 2 disorder F31.81 [facility] [id number] [place] [address] 95977- 2641 May, Bipolar 2 disorder F31.81 ; Panic disorder with agoraphobia F40.01 and Tobacco abuse Z72.0 [facility] [id number] [place] [address] 97893- 6922 Apr, [facility] [id number] [place] [address] 38158- 6161 Apr, [facility] [id number] [place] [address] 23327- 5209 Apr, [facility] [id number] [place] [address] 83585- 9929 Apr, Bipolar 2 disorder F31.81 ; Panic disorder with agoraphobia F40.01 and PTSD (post-traumatic stress disorder) F43.10 [facility] [id number] [place] [address] 40221- 3976 23 Apr, 2016 Chronic bronchitis, unspecified chronic bronchitis type J42 ; Cervical neuritis M54.12 and Thoracic neuritis M54.14 [facility] [id number] [place] [address] 69812- 2836 15 Apr, 2016 [place] [facility] [address] 54867- 0076 15 Apr, 2016 Cervicalgia M54.2 [facility] [address] 20113- 4993 14 Apr, 2016 Bipolar 2 disorder F31.81 ; Panic disorder with agoraphobia F40.01 and PTSD (post-traumatic stress disorder) F43.10 [facility] [id number] [place] [address] 19617 -1414 13 Apr, 2016 [facility] [id number] [place] [address] 70602 -3248 09 Apr, 2016 Cough R05 and Tobacco dependence F17.200 [facility] [address] 40349- 9445 06 Apr, 2016 [facility] [id number] [place] [address] 05921- 0692 Apr, [facility] [id number] [place] [address] 62766- 0322 March, Bipolar 2 disorder F31.81 ; Panic disorder with agoraphobia F40.01 and Generalized anxiety disorder F41.1 [facility] [id number] [place] [address] 38129- 8663 March, Closed displaced fracture of fifth metatarsal bone of right foot with routine healing, subsequent encounter S92.351D [facility] [id number] [place] [address] 15099- 3272 March, Bronchitis J40 [facility] [address] [place] [address]- 9752 March, [facility] [id number] [place] [address] 59560- 3636 March, [facility] [id number] [place] [address] 42764- 3948 March, Foot pain, right M79.671 ; Cervicalgia M54.2 and 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 mellitus without complication, 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 [facility] [id number] [place] [address] 64103- 3918 March, Fracture of fifth metatarsal bone of right foot S92.351A [facility] [id number] [place] [address] 26048- 3175 March, [facility] [address] 48125- 2395 Jan, Fracture of fifth metatarsal bone of right foot S92.351A [facility] [id number] [place] [address] 91916- 8078 Jan, Bipolar 2 disorder F31.81 ; PTSD (post-traumatic stress disorder) F43.10 ; Panic disorder with agoraphobia F40.01 and Epilepsy G40.909 [facility] [id number] [place] [address] 48849- 5592 Jan, History of [place] (myocardial infarction) I25.2 and History of high cholesterol Z86.39 [facility] [address] [place] [address] 05283- 0524 Jan, Bipolar 2 disorder F31.81 ; Panic disorder with agoraphobia F40.01 ; Tobacco abuse Z72.0 and PTSD (post-traumatic stress disorder) F43.10 [facility] [address] [place] [address] 23783- 1147 Jan, Fracture of fifth metatarsal bone of right foot S92.351A [facility] [id number] [place] [address] 01094- 8255 Jan, [facility] [address] [place] [address] 25574- 6148 Jan, History of high cholesterol Z86.39 [facility] [id number] [place] [address] 92822- 5076 Jan, History of [place] (myocardial infarction) I25.2 [facility] [id number] [place] [address] 09196- 6177 Jan, [facility] [id number] [place] [address] 37391- 4346 Dec, Back pain M54.9 ; Diabetes E11.9 ; Right knee pain M25.561 and Chest pain R07.9 [facility] [id number] [place] [address] 16809- 8818 Dec, [facility] [id number] [place] [address] 39776- 8167 Dec, [facility] [id number] [place] [address] 25114- 6560 Dec, Cervicalgia M54.2 [facility] [id number] [place] [address] 62519- 0004 Dec, Bipolar 2 disorder F31.81 ; PTSD (post-traumatic stress disorder) F43.10 ; Panic disorder with agoraphobia F40.01 and Epilepsy G40.909 [facility] [place] [address] [place] [address] 58789- 6785 08 Jan, 2016 Bipolar 2 disorder F31.81 ; PTSD (post-traumatic stress disorder) F43.10 and Panic disorder with agoraphobia F40.01 [facility] [id number] [place] [address] 81473- 4645 Dec, Diabetes E11.9 [facility] [address] [place] [address] 12208- 2606 Dec, [facility] [id number] [place] [address] 22124- 8268 Dec, Other chronic pain G89.29 ; Hepatitis C B19.20 and History of seizures Z87.898 [facility] [id number] [place] [address] 34259- 1756 24 Dec, 2015 [facility] [address] 26298- 2766 Dec, Bipolar 2 disorder F31.81 and Other chronic pain G89.29 [facility] [address] 55255- 6602 Dec, Cervicalgia M54.2 and Diabetes E11.9 [facility] [address] 14897- 5862 Dec, [facility] [address] 65317- 9328 Dec, [facility] [address] 55448- 0625 Dec, [facility] [address] 45633- 2349 Dec, [facility] [id number] [place] [address] 29340- 8135 Dec, Type 2 diabetes mellitus without complications E11.9 [facility] [id number] [place] [address] 89396- 2973 10 Dec, 2015 [facility] [id number] [place] [address] 76046- 5491 09 Dec, 2015 History of seizures Z87.898 and Hepatitis C B19.20 [facility] [id number] [place] [address] 36439- 5448 08 Dec, 2015 Hepatitis C B19.20 [facility] [id number] [place] [address] 61809- 7509 Dec, [place] [address] [place] [address] 55828- 7761 Dec, Cervicalgia M54.2 ; COPD (chronic obstructive pulmonary disease) J44.9 and Hepatitis C B19.20 [facility] [id number] [place] [address] 38255- 4933 Dec, Bipolar 2 disorder F31.81 ; History of hypertension Z86.79 ; History of anxiety Z86.59 ; Panic disorder with agoraphobia F40.01 and Epilepsy G40.909 [facility] [id number] [place] [address] 70042- 3625 Nov, [address] 08581- 5738 Nov, [address] 97635- 4924 Nov, History of seizures Z87.898 ; OAB (overactive bladder) N32.81 ; Lumbago M54.5 ; Other chronic pain G89.29 ; Cervicalgia M54.2 ; Tobacco abuse Z72.0 ; Tobacco abuse counseling Z71.6 and Impaired fasting glucose R73.01 [facility] [id number] [place] [address] 15552- 9082 Nov, Bipolar 2 disorder F31.81 ; PTSD (post-traumatic stress disorder) F43.10 ; History of anxiety Z86.59 ; History of COPD Z87.09 ; Panic disorder with agoraphobia F40.01 and Moderate depressed bipolar I disorder F31.32 [facility] [id number] [place] [address] 45338- 9319 Nov, PTSD (post-traumatic stress disorder) F43.10 [facility] [id number] [place] [address] [id number] 11 Nov, 2015 Dental examination Z01.20 and Dental caries K02.[address] 34341- 3659 Nov, History of hypertension Z86.79 ; History of hypothyroidism Z86.39 ; History of high cholesterol Z86.39 ; History of COPD Z87.09 and Overactive bladder N32.81 [place] [id number] [place] [address] 27573- 9421 Nov, Bipolar 2 disorder F31.81 and PTSD (post-traumatic stress disorder) F43.[address] 46660- 0218 Nov, PTSD (post-traumatic stress disorder) F43.10 ; Panic disorder with agoraphobia F40.01 ; Epilepsy G40.909 and Moderate depressed bipolar I disorder F31.[address] 15148- 7724 Nov, [address] 19641- 7531 Nov, [address] 15105- 1156 Oct, [address] 09471- 2554 Oct, Generalized anxiety disorder F41.1 ; Major depression, recurrent F33.9 and PTSD (post-traumatic stress disorder) F43.10 [place] [id number] [place] [address] 96526- 1645 Oct, Elevated fasting glucose R73.[address] 90273- 0005 Oct, Elevated fasting glucose R73.01 [place] [id number] [place] [address] 29738- 8426 Oct, History of COPD Z87.09 [place] [id number] [place] [address] 13249- 7741 15 Oct, 2015 General medical exam Z00.00 ; History of hypertension Z86.79 ; History of hypothyroidism Z86.39 ; History of hepatitis Z86.19 ; History of high cholesterol Z86.39 and History of seizures Z87.898 [facility] [address], [place] [address]- 3970 10 Oct, 2015 General medical exam Z00.00 ; History of hypertension Z86.79 ; History of hypothyroidism Z86.39 ; Bipolar 2 disorder F31.81 ; PTSD ( post-traumatic stress disorder) F43.10 ; History of hepatitis Z86.19 ; History of high cholesterol Z86.39 ; History of anxiety Z86.59 ; History of seizures Z87.898 ; History of [place] (myocardial infarction) I25.2 and History of COPD Z87.09 [facility] [id number] [place] [address] 44406- 0467 Oct, Generalized anxiety disorder F41.1 ; Depression F32.9 and PTSD (post-traumatic stress disorder) F43.10 [facility] [id number] [place] [address] 43761- 1952 Jan, [facility] [id number] [place] [address] 99464- 5685 Jan, [facility] [id number] [place] [address] [phone]- 3485 Jun, [facility] [address] [place] [id number] Jun, [facility] [address], [place] [address]- 2049 May, [facility] [address] [place] [address] 67549- 7078 May, [facility] [address] [place] [id number] May, [facility] [id number] [place] [address] 81543- 4553 May, [facility] [address] [place] [id number] May, [facility] [address], [place] [address]- 8846 May, IMMUNIZATIONS No Known Immunizations SOCIAL HISTORY [...]
--- OUTSIDE RECORDS SUMMARY | 2019-01-26 07:22 | XMS REPORT ---
Author Author GERARDO [facility]IS[facility] Address [address] [place] [address] Care Team Providers Care Staff Submarine Warfare Officer Name Role Phone MARGI GERARDO Unavailable PROBLEMS Type Condition ICD9-CM Code BQA94-BM Code Onset Dates Condition Status SNOMED Code Problem OAB (overactive bladder) N32.81 Active 174280251 Problem Epilepsy G40.909 Active 68508604 Problem Cervicalgia M54.2 Active 37911567 Problem Other chronic pain G89.29 Active 98560665 Problem Tobacco abuse Z72.0 Active 58590675 Problem Lumbago M54.5 Active 249935891 Problem Hepatitis C B19.20 Active 76838602 Problem COPD (chronic obstructive pulmonary disease) J44.9 Active 93363031 Problem Diabetes E11.9 Active 43495990 Problem Bipolar I disorder with duy F31.10 Active 82165051 Problem Type 2 diabetes mellitus without complications E11.9 Active 943762394 Problem Stress incontinence of urine N39.3 Active 85054911 Problem Bilateral claudication of lower limb I73.9 Active 553584167 Problem Seasonal allergic rhinitis due to other allergic trigger J30.89 Active 525751838 Problem Hyperlipidemia, unspecified hyperlipidemia type E78.5 Active 44835953 Problem Hypertension, unspecified type I10 Active 68786558 Problem Chronic tension-type headache, not intractable G44.229 Active 951867911 Problem 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 mellitus without complication, without long -term current use of insulin E11.9 Active 762938679 Problem Type 2 diabetes mellitus with hyperglycemia E11.65 Active 258346032 Problem Chronic post-traumatic stress disorder (PTSD) F43.12 Active 934591919 Problem History of hypothyroidism Z86.39 Active 384561713 Problem Hypoglycemia E16.2 Active 648317496 Problem El's esophageal ulceration K22.10 Active 326110768 Problem Bipolar affective disorder, currently depressed, mild F31.31 Active 278216304 Problem Irritable bowel syndrome with diarrhea K58.0 Active 039488864 Problem Stress incontinence N39.3 Active 86791662 Problem History of hypertension Z86.79 Active 649647620 Problem Uncontrolled type 2 diabetes mellitus without complication, without long-term current use of insulin E11.65 Active 657325288 Problem Panic disorder with agoraphobia F40.01 Active 17089239 Problem Type 2 diabetes mellitus with hyperglycemia E11.65 Active 439671295 Problem History of seizures Z87.898 Active 272943155 Problem snf current use of insulin Z79.4 Active 019883692 Problem History of NM (myocardial infarction) I25.2 Active 250313934 Problem Mood disorder F39 Active 92067005 Problem Bipolar 2 disorder F31.81 Active 90648307 Problem Gastritis and duodenitis K29.90 Active 749013523 Problem History of high cholesterol Z86.39 Active 400035526 Problem Bipolar I disorder with mood-congruent psychotic features F31.9 Active 818646633 Problem Hypertension, benign I10 Active 99141573 Problem Primary insomnia F51.01 Active 9912537 ALLERGIES No Information ENCOUNTERS Encounter Location Date Diagnosis [facility] [id number] [place] [address] 66328- 2473 Nov, [facility] [id number] [place] [address] 81060- 6269 Jul, [facility] [id number] [place] [address] 86523- 6214 Jul, [facility] [id number] [place] [address] 24839- 9433 Jul, Bipolar 2 disorder F31.81 ; Panic disorder with agoraphobia F40.01 and Chronic post-traumatic stress disorder (PTSD) F43.12 [facility] [id number] [place] [address] 00625- 9339 Jun, [facility] [address] 97363- 1070 Jun, [facility] [id number] [place] [address] 72923- 2090 Jun, Lumbago M54.5 [facility] [address] [address]- 6601 Jun, Type 2 diabetes mellitus with hyperglycemia E11.65 [facility] [id number] [place] [address] 20194- 1103 Jun, [facility] [id number] [place] [address] 87345- 9608 Jun, Type 2 diabetes mellitus with hyperglycemia E11.65 ; El 's esophageal ulceration K22.10 and Lumbago M54.5 [facility] [id number] [place] [address] 18077- 8994 Jun, Type 2 diabetes mellitus with hyperglycemia E11.65 [facility] [id number] [place] [address] 70875- 5940 Jun, [facility] [id number] [place] [address] 16789- 3677 Jun, [facility] [id number] [place] [address] 36240- 4919 Jun, Bipolar affective disorder, currently depressed, mild F31.31 ; Chronic post-traumatic stress disorder (PTSD) F43.12 and Panic disorder with agoraphobia F40.01 [facility] [address] [place] [address] 52616- 1712 Jun, [place] [address] [place] [address] 19160- 5947 Jun, [facility] [address] [place] [address] 35551- 3777 Jun, Type 2 diabetes mellitus with hyperglycemia E11.65 [facility] [id number] [place] [address] 39688- 8298 Jun, Uncontrolled type 2 diabetes mellitus with hyperglycemia E11.65 [facility] [address] [address]- 5397 Jun, [facility] [id number] [place] [address] 49511- 4431 May, Lumbago M54.5 [facility] [address] [facility] [id number] [place] [id number] May, [facility] [address] [facility] [id number] [place] [address] 6691 May, [facility] [address] [facility] [id number] [address] 2183 May, [facility] [id number] [address]- 8878 May, [facility] [id number] [address]- 0000 May, [facility] [id number] [address]- 9705 May, [facility] [address] [address]- 2354 May, [facility] [id number] [address]- 6847 May, Lumbago M54.5 [facility] [address] [address]- 9398 May, [facility] [id number] [address]- [address] Apr, [address] of the chest R93.8 [facility] [address] [address]- 4795 Apr, Bipolar 2 disorder F31.81 ; Chronic post-traumatic stress disorder (PTSD) F43.12 and Panic disorder with agoraphobia F40.01 [facility] [address] [address]- [address] Apr, [address] of the chest R93.8 [facility] [id number] [address]- [address] Apr, [address] of the chest R93.8 [facility] [id number] [place] [address] 17275- 0982 14 Apr, 2018 [place] 96049- 0639 Apr, Type 2 diabetes mellitus with hyperglycemia E11.65 [facility] [id number] [place] [address] 29383- 2520 Apr, 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 mellitus without complication, without long-term current use of insulin E11.9 ; Watery eyes H04.203 ; Low back pain M54.5 ; Other chronic pain G89.29 ; Chronic tension-type headache, not intractable G44.229 ; Uncontrolled type 2 diabetes mellitus without complication , without long-term current use of insulin E11.65 and Bronchitis J40 [place] [facility] [id number] [place] [address] 47881- 1628 Apr, [place] [facility] [address] 39792- 3734 Apr, Lumbago M54.5 [facility] [id number] [place] [address] 52463- 6750 March, [facility] [id number] [place] [address] 20091 -4280 March, Cough R05 ; Pneumonia due to infectious organism, unspecified laterality, unspecified part of lung J18.9 and Non-intractable vomiting with nausea, unspecified vomiting type R11.2 [place] [facility] [id number] [place] [address] 18926- 0898 March, Bronchitis J40 [place] [id number] [place] [address] 76244- 3920 March, [place] [address] 69940- 3114 March, El's esophageal ulceration K22.10 and Type 2 diabetes mellitus with hyperglycemia E11.65 [place] [address] 50676- 9842 March, Panic disorder with agoraphobia F40.01 ; Chronic post- traumatic stress disorder (PTSD) F43.12 and Bipolar 2 disorder F31.81 [place] [facility] [id number] [place] [address] 31037- 2644 March, Type 2 diabetes mellitus with hyperglycemia E11.65 [facility] [id number] [place] [address] 36049- 2572 March, [facility] [id number] [place] [address] 79803- 1928 March, Lumbago M54.5 [facility] [id number] [place] [address] 27957- 5506 March, [facility] [id number] [place] [address] 36163- 7766 March, Irritable bowel syndrome with diarrhea K58.0 ; Primary insomnia F51.01 ; Type 2 diabetes mellitus with hyperglycemia E11.65 and 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 [facility] [facility] [id number] [place] [address] 03444- 8033 March, [place] [facility] [id number] [place] [address] 97702- 8823 Jan, [facility] [id number] [place] [address] 10983- 2907 Jan, [facility] [id number] [place] [address] 41226- 0958 Jan, [facility] [id number] [place] [address] 80573- 9148 Jan, [facility] [id number] [place] [address] 24428- 4670 Jan, Dizziness R42 [facility] [id number] [place] [address] 06006- 2344 Jan, Bipolar affective disorder, currently depressed, mild F31.31 ; Panic disorder with agoraphobia F40.01 and Chronic post-traumatic stress disorder (PTSD) F43.12 [place] [facility] [id number] [place] [address] 50352- 4291 17 Jan, 2018 Dizziness R42 [place] [facility] [id number] [place] [address] 58770- 6589 11 Jan, 2018 Chest pain, unspecified type R07.9 ; Exertional dyspnea R06.09 ; Hypertension, unspecified type I10 and Hyperlipidemia, unspecified hyperlipidemia type E78.5 [place] [address] 03860- 7738 Jan, [place] [address] 93216- 7239 09 Jan, 2018 Lumbago M54.5 [place] [facility] [address] 82437- 7834 04 Jan, 2018 El's esophageal ulceration K22.10 ; Blister (nonthermal ) of oral cavity, initial encounter S00.522A ; Local infection of the skin and subcutaneous tissue, unspecified L08.9 ; Type 2 diabetes mellitus with hyperglycemia E11.65 ; snf current use of insulin Z79.4 and Stress incontinence N39.3 [place] [facility] [id number] [place] [address] 06142- 8872 27 Dec, 2017 [place] [address] 86022- 2337 27 Dec, 2017 [place] [id number] [place] [address] 66293- 4482 Dec, [facility] [address] [id number] Dec, 2017 Dental examination Z01.20 [place] [id number] [place] [address] 30099- 1366 15 Dec, 2017 Acute pain of right knee M25.561 [place] [facility] [address] 29703- 7249 Dec, [place] [facility] [id number] [place] [address] 68613- 9622 Dec, [place] [address] 80923- 0749 Dec, Lumbago M54.5 ; Acute pain of right knee M25.561 and Seasonal allergic rhinitis due to other allergic trigger J30.89 [place] [address] 57286- 7446 Dec, Type 2 diabetes mellitus with hyperglycemia E11.65 [place] [address] 94744- 7323 Dec, [place] [address] 02427- 4758 Dec, [place] [address] 19761- 8602 Dec, [place] [id number] [place] [address] 90040- 4295 Dec, [place] [facility] [id number] [place] [address] 89932- 9977 Dec, Chronic post-traumatic stress disorder (PTSD) F43.12 and Panic disorder with agoraphobia F40.01 [place] [facility] [id number] [place] [address] 56091- 2076 13 Dec, 2017 Low back pain M54.5 [place] [facility] [id number] [place] [address] 13524- 8873 12 Dec, 2017 Type 2 diabetes mellitus with hyperglycemia E11.65 ; 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 ; Low back pain M54.5 ; Other chronic pain G89.29 and Encounter for therapeutic drug level monitoring Z51.81 [place] [id number] [place] [address] 78558- 2411 09 Dec, 2017 Coughing R05 [place] [address] [address]- 3256 09 Dec, 2017 [facility] [address] [id number] 07 Dec, 2017 Dental examination Z01.20 [facility] [address] [address]- 6266 Nov, Type 2 diabetes mellitus without complications E11.9 and Encounter for therapeutic drug level monitoring Z51.81 [facility] [id number] [place] [address] 03331- 3632 Nov, [place] [id number] [place] [address] 77050- 8690 Oct, Type 2 diabetes mellitus without complications E11.9 [place] [facility] [id number] [place] [address] 56516- 4663 Oct, Type 2 diabetes mellitus with hyperglycemia E11.65 [facility] [id number] [place] [address] 09729- 1950 Aug, Type 2 diabetes mellitus without complications E11.9 [facility] [id number] [place] [address] 14168- 7192 Aug, Type 2 diabetes mellitus without complications E11.9 ; Hypoglycemia E16.2 ; Lumbago M54.5 ; Stress incontinence of urine N39.3 and History of NM (myocardial infarction) I25.2 [place] [address] [address]- 9697 Jun, [facility] [address] [address]- 6801 May, [place] [id number] [place] [address] 38191- 7394 Apr, Panic disorder with agoraphobia F40.01 [facility] [address] [address]- 8299 Apr, Panic disorder with agoraphobia F40.01 [place] [id number] [address]- 7177 Apr, [facility] [id number] [place] [address] 96746- 8822 March, Other chronic pain G89.29 [facility] [address] [address]- 5260 March, [facility] [id number] [place] [address] 08092- 0222 March, [facility] [id number] [place] [address] 18751- 9851 March, [facility] [id number] [place] [address] 59997- 3034 March, [facility] [id number] [place] [address] 75678- 6466 March, Type 2 diabetes mellitus without complications E11.9 [facility] [id number] [place] [address] 13967- 4534 March, Diarrhea, unspecified type R19.7 [place] [facility] [id number] [place] [address] 24861- 5979 March, Bipolar 2 disorder F31.81 ; Chronic post-traumatic stress disorder (PTSD) F43.12 and Type 2 diabetes mellitus with hyperglycemia E11.65 [facility] [address] [address]- 7619 March, [facility] [address] [address]- 8095 March, [facility] [address] [address]- 9343 March, Hypertension, benign I10 ; Type 2 diabetes mellitus with hyperglycemia E11.65 ; Hepatitis C B19.20 ; Gastritis and duodenitis K29.90 and Dysuria R30.0 [facility] [address] [address]- 6963 March, Hypertension, benign I10 ; Type 2 diabetes mellitus with hyperglycemia E11.65 ; Hepatitis C B19.20 ; Gastritis and duodenitis K29.90 and Dysuria R30.0 [place] [id number] [place] [address] 01938- 1949 March, Panic disorder with agoraphobia F40.01 ; Chronic post- traumatic stress disorder (PTSD) F43.12 ; Epilepsy G40.909 and Bipolar I disorder with mood-congruent psychotic features F31.9 [place] [facility] [id number] [place] [address] 75496- 2779 March, [place] [address] 52239- 3905 March, Type 2 diabetes mellitus with hyperglycemia E11.65 [place] [address] 82233- 9604 18 Jan, 2017 Bipolar I disorder with duy F31.10 [place] [facility] [id number] [place] [address] 01065- 0505 Jan, Bipolar 2 disorder F31.81 ; Chronic post-traumatic stress disorder (PTSD) F43.12 and Type 2 diabetes mellitus with hyperglycemia E11.65 [place] [facility] [id number] [place] [address] 25651- 7983 Jan, [place] [id number] [place] [address] 89694- 3181 Jan, [place] [id number] [place] [address] 51078- 9869 Jan, Panic disorder with agoraphobia F40.01 [place] [facility] [id number] [place] [address] 96185- 2610 Jan, Panic disorder with agoraphobia F40.01 ; Bipolar I disorder with mood-congruent psychotic features F31.9 ; Chronic post-traumatic stress disorder (PTSD) F43.12 and Epilepsy G40.909 [place] [address] [place] [address]- 2546 Jan, [facility] [address] [address]- 5286 Jan, [facility] [address] [place] [address] 87722- 1543 10 Jan, 2017 Type 2 diabetes mellitus without complications E11.9 and Hypoglycemia E16.2 [facility] [id number] [place] [address] 55828- 2412 07 Jan, 2017 Type 2 diabetes mellitus without complications E11.9 ; Primary insomnia F51.01 and Hypertension, benign I10 [facility] [id number] [place] [address] 88700- 3622 Jan, [facility] [id number] [place] [address] [id number] Jan, [facility] [id number] [place] [address] 48053- 0570 Dec, Type 2 diabetes mellitus with hyperglycemia E11.65 [facility] [address] [address]- 0493 Dec, [facility] [id number] [place] [address] 85796- 5605 Dec, Bipolar 2 disorder F31.81 ; Panic disorder with agoraphobia F40.01 ; Chronic post-traumatic stress disorder (PTSD) F43.12 and Epilepsy G40.909 [facility] [address] [address]- 3939 Dec, [facility] [address] [address]- 3127 Dec, [facility] [id number] [place] [address] 11081- 9169 09 Dec, 2016 Bipolar 2 disorder F31.81 ; Panic disorder with agoraphobia F40.01 ; Chronic post-traumatic stress disorder (PTSD) F43.12 and Epilepsy G40.909 [facility] [id number] [place] [address] 11478- 8777 Dec, [facility] [id number] [place] [address] 08329- 8739 Dec, [facility] [id number] [place] [address] 95007- 1429 Dec, [facility] [address] 00926- 4449 Dec, Type 2 diabetes mellitus with hyperglycemia E11.65 ; snf current use of insulin Z79.4 and Lumbago M54.5 [place] [address] 52981- 0362 Dec, [place] [address] 70561- 4175 Dec, [place] [address] 08476- 6380 Dec, [facility] [id number] [place] [address] 07892 -6345 Dec, Pain of left leg M79.605 and Pain in right leg M79.604 [place] [id number] [place] [address] 48565- 9703 Dec, [facility] [id number] [place] [address] 44689- 6914 Dec, Type 2 diabetes mellitus with hyperglycemia E11.65 [facility] [id number] [place] [address] 12073- 1217 Dec, [facility] [id number] [place] [address] 01677- 8326 Dec, Type 2 diabetes mellitus with hyperglycemia E11.65 ; snf current use of insulin Z79.4 ; Vagina, candidiasis B37.3 and Other chronic pain G89.29 [facility] [address] 47204- 4236 Nov, Panic disorder with agoraphobia F40.01 [facility] [address] [address]- 8226 Nov, [facility] [address] [place] [address] 04042- 2197 Nov, [facility] [id number] [place] [address] 21293- 1796 Nov, Hypoglycemia E16.2 [facility] [id number] [place] [address] 04909- 7019 Nov, [facility] [id number] [place] [address] 55521- 0960 Nov, [facility] [id number] [place] [address] 44852- 2794 Nov, [facility] [id number] [place] [address] 46788- 1834 Nov, Type 2 diabetes mellitus with hyperglycemia E11.65 and 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 [facility] [address] [place] [address] 66709- 8522 Nov, Panic disorder with agoraphobia F40.01 ; Bipolar 2 disorder F31.81 ; Chronic post-traumatic stress disorder (PTSD) F43.12 and Epilepsy G40.909 [facility] [address] [place] [address] 29823- 5472 Nov, Panic disorder with agoraphobia F40.01 [facility] [address] [address]- 5918 Oct, [facility] [id number] [place] [phone] Oct, [facility] [id number] [address] Oct, Bipolar 2 disorder F31.81 ; Panic disorder with agoraphobia F40.01 and Mood disorder F39 [facility] [id number] [address] 12 Oct, 2016 Diabetes E11.9 ; Type 2 diabetes mellitus with hyperglycemia E11.65 and snf current use of insulin Z79.4 [facility] [address] [address] 06 Oct, 2016 [facility] [id number] [place] [address] 89660- 4435 Sep, [facility] [id number] [place] [address] 28691- 9293 Sep, Bipolar 2 disorder F31.81 and Mood disorder F39 [facility] [id number] [place] [address] 53568- 5292 Sep, [facility] [id number] [place] [address] 39918- 6563 Sep, Uncontrolled type 2 diabetes mellitus without complication, without long-term current use of insulin E11.65 [facility] [address] [address] 9921 Sep, [facility] [id number] [place] [address] 15567- 8007 Sep, [facility] [id number] [place] [address] 14383- 7765 Sep, [facility] [id number] [place] [address] 58889- 0973 Sep, [facility] [address] [address] 6526 Sep, Bipolar 2 disorder F31.81 ; Chronic post-traumatic stress disorder (PTSD) F43.12 ; Panic disorder with agoraphobia F40.01 and Epilepsy G40.909 [facility] [address] [address] 2088 11 Sep, 2016 Bipolar 2 disorder F31.81 ; PTSD (post-traumatic stress disorder) F43.10 and Panic disorder with agoraphobia F40.01 [facility] [id number] [place] [address] 41159- 9841 Sep, [facility] [id number] [place] [address] Aug, History of seizures Z87.898 ; Panic disorder with agoraphobia F40.01 and Bipolar 2 disorder F31.81 [facility] [id number] [place] [address] 50568- 9174 Aug, [facility] [id number] [place] [address] 44154- 1753 17 Aug, 2016 [facility] [address] 0[address]60- 2764 Aug, [facility] [id number] [place] [address] 31726- 8987 Aug, [facility] [id number] [place] [address] 62478- 9927 Aug, [facility] [id number] [place] [address] 34154- 7796 Aug, [facility] [id number] [place] [address] 80226- 1398 Aug, Hypoglycemia E16.2 and Bilateral impacted cerumen H61.23 [facility] [id number] [place] [address] 79818- 8097 Aug, [facility] [id number] [place] [address] 13669- 0411 Jul, [facility] [id number] [place] [address] 27509- 7549 21 Jul, 2016 [facility] [id number] [place] [address] 77641- 4145 15 Jul, 2016 Bipolar 2 disorder F31.81 ; Panic disorder with agoraphobia F40.01 ; PTSD (post-traumatic stress disorder) F43.10 and Epilepsy G40.909 [facility] [id number] [place] [address] 68817- 3298 Jul, [facility] [id number] [place] [address] 83972- 9447 Jul, Type 2 diabetes mellitus without complications E11.9 and Coughing R05 [facility] [id number] [place] [address] 13751- 5945 Jul, [facility] [id number] [place] [address] 89427- 0447 Jun, [facility] [address] 43377- 3762 Jun, Bipolar 2 disorder F31.81 ; PTSD (post-traumatic stress disorder) F43.10 and Panic disorder with agoraphobia F40.01 [facility] [address] 46806- 1902 Jun, [facility] [id number] [place] [address] 56554- 4241 Jun, [facility] [address] 99815- 9432 Jun, [facility] [id number] [place] [address] 88736- 7031 Jun, Type 2 diabetes mellitus without complications E11.9 and COPD (chronic obstructive pulmonary disease) J44.9 [facility] [id number] [place] [address] [id number] May, Dental examination Z01.20 and Dental caries K02.9 [facility] [id number] [place] [address] 84394- 6046 May, Bipolar 2 disorder F31.81 ; PTSD (post-traumatic stress disorder) F43.10 and Panic disorder with agoraphobia F40.01 [facility] [id number] [place] [address] 61975- 4052 May, Lumbago with sciatica, right side M54.41 ; Other chronic pain G89.29 and Uncontrolled type 2 diabetes mellitus without complication, without long-term current use of insulin E11.65 [place] [facility] [id number] [place] [address] 36064- 5189 May, Chronic bronchitis, unspecified chronic bronchitis type J42 [facility] [id number] [place] [address] 39042- 1760 May, [facility] [id number] [place] [address] 25380- 3412 May, [facility] [id number] [place] [address] 91797- 9785 May, Chest pain, unspecified type R07.9 ; Tobacco use Z72.0 ; Type 2 diabetes mellitus without complications E11.9 ; Essential hypertension I10 ; Hyperlipidemia, unspecified hyperlipidemia type E78.5 ; Obesity (BMI 30- 39.9) E66.9 ; History of hypothyroidism Z86.39 ; Chronic obstructive pulmonary disease, unspecified COPD type J44.9 ; Anxiety F41.9 ; Bilateral claudication of lower limb I73.9 and Bipolar 2 disorder F31.81 [facility] [id number] [place] [address] 09159- 2018 May, Bipolar 2 disorder F31.81 ; Panic disorder with agoraphobia F40.01 and Tobacco abuse Z72.0 [facility] [id number] [place] [address] 51278- 9653 Apr, [facility] [id number] [place] [address] 07295- 1277 Apr, [facility] [id number] [place] [address] 91313- 4126 Apr, [facility] [id number] [place] [address] 67860- 1881 Apr, Bipolar 2 disorder F31.81 ; Panic disorder with agoraphobia F40.01 and PTSD (post-traumatic stress disorder) F43.10 [facility] [id number] [place] [address] 49449- 9944 23 Apr, 2016 Chronic bronchitis, unspecified chronic bronchitis type J42 ; Cervical neuritis M54.12 and Thoracic neuritis M54.14 [facility] [id number] [place] [address] 05598- 6850 15 Apr, 2016 [place] [facility] [address] 39350- 1075 15 Apr, 2016 Cervicalgia M54.2 [place] [facility] [address] 90269- 1635 14 Apr, 2016 Bipolar 2 disorder F31.81 ; Panic disorder with agoraphobia F40.01 and PTSD (post-traumatic stress disorder) F43.10 [facility] [address] 14344 -8851 13 Apr, 2016 [facility] [address] 47590 -1876 09 Apr, 2016 Cough R05 and Tobacco dependence F17.200 [place] [address] 8[address]21- 1944 06 Apr, 2016 [place] [address] 47990- 4042 Apr, [place] [address] 22832- 3842 March, Bipolar 2 disorder F31.81 ; Panic disorder with agoraphobia F40.01 and Generalized anxiety disorder F41.1 [facility] [id number] [place] [address] 52545- 7571 March, Closed displaced fracture of fifth metatarsal bone of right foot with routine healing, subsequent encounter S92.351D [facility] [id number] [place] [address] 60061- 2913 March, Bronchitis J40 [place] [address] 61332- 0321 March, [facility] [id number] [place] [address] 13169- 7270 March, [facility] [id number] [place] [address] 24843- 3421 March, Foot pain, right M79.671 ; Cervicalgia M54.2 and 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 mellitus without complication, unspecified 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.9 [facility] [id number] [place] [address] 01077- 1220 March, Fracture of fifth metatarsal bone of right foot S92.351A [place] [address] 60915- 6783 March, [place] [facility] [address] 49398- 2083 Jan, Fracture of fifth metatarsal bone of right foot S92.351A [facility] [id number] [place] [address] 74470- 0891 Jan, Bipolar 2 disorder F31.81 ; PTSD (post-traumatic stress disorder) F43.10 ; Panic disorder with agoraphobia F40.01 and Epilepsy G40.909 [id number] [place] [address] 39320- 3905 Jan, History of NM (myocardial infarction) I25.2 and History of high cholesterol Z86.39 [facility] [id number] [place] [address] 33415- 5116 Jan, Bipolar 2 disorder F31.81 ; Panic disorder with agoraphobia F40.01 ; Tobacco abuse Z72.0 and PTSD (post-traumatic stress disorder) F43.10 [facility] [id number] [place] [address] 58858- 6860 Jan, Fracture of fifth metatarsal bone of right foot S92.351A [place] [address] 46190- 1332 Jan, [facility] [id number] [place] [address] 84047- 5351 Jan, History of high cholesterol Z86.39 [facility] [id number] [place] [address] 53311- 4200 Jan, History of NM (myocardial infarction) I25.2 [place] [id number] [place] [address] 12768- 5324 Jan, [facility] [id number] [place] [address] 83863- 4708 Dec, Back pain M54.9 ; Diabetes E11.9 ; Right knee pain M25.561 and Chest pain R07.9 [facility] [id number] [place] [address] 86722- 8651 Dec, [facility] [id number] [place] [address] 18564- 4605 Dec, [place] [id number] [place] [address] 93182- 9805 Dec, Cervicalgia M54.2 [place] [id number] [place] [address] 99579- 2710 Dec, Bipolar 2 disorder F31.81 ; PTSD (post-traumatic stress disorder) F43.10 ; Panic disorder with agoraphobia F40.01 and Epilepsy G40.909 [facility] [id number] [place] [address] 78692- 0673 08 Jan, 2016 Bipolar 2 disorder F31.81 ; PTSD (post-traumatic stress disorder) F43.10 and Panic disorder with agoraphobia F40.01 [place] [id number] [place] [address] 67806- 8605 Dec, Diabetes E11.9 [place] [id number] [place] [address] 05092- 1968 Dec, [place] [address] [place] [address]- 7479 Dec, Other chronic pain G89.29 ; Hepatitis C B19.20 and History of seizures Z87.898 [facility] [id number] [place] [address] 42632- 7424 24 Dec, 2015 [facility] [id number] [place] [address] 65682- 1234 Dec, Bipolar 2 disorder F31.81 and Other chronic pain G89.29 [facility] [id number] [place] [address] 44784- 2030 Dec, Cervicalgia M54.2 and Diabetes E11.9 [facility] [id number] [place] [address] 18665- 4340 Dec, [facility] [id number] [place] [address] 16260- 4267 Dec, [facility] [id number] [place] [address] 13364- 1408 Dec, [facility] [id number] [place] [address] 47920- 7116 Dec, [facility] [id number] [place] [address] 56002- 3628 Dec, Type 2 diabetes mellitus without complications E11.9 [facility] [id number] [place] [address] 99705- 9291 10 Dec, 2015 [facility] [id number] [place] [address] 55695- 9046 09 Dec, 2015 History of seizures Z87.898 and Hepatitis C B19.20 [facility] [id number] [place] [address] 03852- 1544 08 Dec, 2015 Hepatitis C B19.20 [facility] [id number] [place] [address] 77489- 0314 Dec, [facility] [id number] [place] [address] 43165- 6168 04 Dec, 2015 Cervicalgia M54.2 ; COPD (chronic obstructive pulmonary disease) J44.9 and Hepatitis C B19.20 [facility] [id number] [place] [address] 94200- 0949 02 Dec, 2015 Bipolar 2 disorder F31.81 ; History of hypertension Z86.79 ; History of anxiety Z86.59 ; Panic disorder with agoraphobia F40.01 and Epilepsy G40.909 [facility] [id number] [place] [address] 96122- 1094 Nov, [place] [address] 56039- 3075 Nov, [address] 04640- 9705 Nov, History of seizures Z87.898 ; OAB (overactive bladder) N32.81 ; Lumbago M54.5 ; Other chronic pain G89.29 ; Cervicalgia M54.2 ; Tobacco abuse Z72.0 ; Tobacco abuse counseling Z71.6 and Impaired fasting glucose R73.01 [place] [facility] [id number] [place] [address] 64441- 3444 Nov, Bipolar 2 disorder F31.81 ; PTSD (post-traumatic stress disorder) F43.10 ; History of anxiety Z86.59 ; History of COPD Z87.09 ; Panic disorder with agoraphobia F40.01 and Moderate depressed bipolar I disorder F31.32 [place] [id number] [place] [address] 82417- 0614 12 Nov, 2015 PTSD (post-traumatic stress disorder) F43.10 [facility] [id number] [place] [address] [id number] 11 Nov, 2015 Dental examination Z01.20 and Dental caries K02.9 [place] [id number] [place] [address] 12576- 3475 08 Nov, 2015 History of hypertension Z86.79 ; History of hypothyroidism Z86.39 ; History of high cholesterol Z86.39 ; History of COPD Z87.09 and Overactive bladder N32.[address] 49265- 9146 Nov, Bipolar 2 disorder F31.81 and PTSD (post-traumatic stress disorder) F43.[address] 99046- 3656 Nov, PTSD (post-traumatic stress disorder) F43.10 ; Panic disorder with agoraphobia F40.01 ; Epilepsy G40.909 and Moderate depressed bipolar I disorder F31.[address] 70613- 8067 Nov, [address] 66356- 3129 Nov, [address] 12949- 9311 Oct, [place] [id number] [place] [address] 82504- 4186 Oct, Generalized anxiety disorder F41.1 ; Major depression, recurrent F33.9 and PTSD (post-traumatic stress disorder) F43.10 [address] [id number] [place] [address] 31127- 1596 Oct, Elevated fasting glucose R73.01 [place] [id number] [place] [address] 56396- 9008 Oct, Elevated fasting glucose R73.01 [address] [place] [id number] [place] [address] 04296- 9769 Oct, History of COPD Z87.09 [place] [id number] [place] [address] 95129- 3469 15 Oct, 2015 General medical exam Z00.00 ; History of hypertension Z86.79 ; History of hypothyroidism Z86.39 ; History of hepatitis Z86.19 ; History of high cholesterol Z86.39 and History of seizures Z87.898 [facility] [address] [address]- 1516 10 Oct, 2015 General medical exam Z00.00 ; History of hypertension Z86.79 ; History of hypothyroidism Z86.39 ; Bipolar 2 disorder F31.81 ; PTSD ( post-traumatic stress disorder) F43.10 ; History of hepatitis Z86.19 ; History of high cholesterol Z86.39 ; History of anxiety Z86.59 ; History of seizures Z87.898 ; History of NM (myocardial infarction) I25.2 and History of COPD Z87.09 [facility] [id number] [place] [address] 98211- 9928 10 Oct, 2015 Generalized anxiety disorder F41.1 ; Depression F32.9 and PTSD (post-traumatic stress disorder) F43.10 [facility] [id number] [address]- 7539 Jan, [facility] [id number] [address]- 6177 Jan, [facility] [id number] [address]- 3387 Jun, [facility] [address] [place] [id number] Jun, [facility] [address] [address]- 5073 May, [facility] [id number] [place] [address] 71273- 7704 May, [facility] [address] [place] [phone] May, [facility] [id number] [address]- 9483 May, [facility] [address] [place] [id number] May, [facility] [address] [address]- 5876 May, IMMUNIZATIONS No Known Immunizations SOCIAL HISTORY Never Assessed REASON FOR VISIT BS issues PLAN OF CARE VITAL SIGNS MEDICATIONS Unknown Medications RESULTS No Results PROCEDURES No Known procedures INSTRUCTIONS MEDICATIONS ADMINISTERED No Known Medications MEDICAL (GENERAL) HISTORY Type Description Date Medical History Hypothyroidism Medical History High cholesterol Medical History Hypertension Medical History Brain seizure Medical History Asthma Medical History COPD Medical History Hep C -2005 Medical History NM x 2 last in 2009 Medical History PTSD (post-traumatic stress disorder) Medical History Colon Cancer 2016 Medical History diabites II Surgical History tonsillectomy 1985 Surgical History partial hysterectomy 2004 Surgical History appendectomy 2004 Hospitalization History Surgery(s) only Hospitalization History pneumonia x3 days Hospitalization History Heart cath with stint 05/15/2016 Hospitalization History Diverticulitis, N/V[facility] 01/28/17
--- OUTSIDE RECORDS SUMMARY | 2019-01-26 07:23 | XMS REPORT ---
Author Author FRANK LUNA Organization [facility], [place] Address [address] [place] [address] Care Team Providers Care Stone Carriage Operator Name Role Phone FRANK LUNA Unavailable PROBLEMS Type Condition ICD9-CM Code CSL94-QI Code Onset Dates Condition Status SNOMED Code Problem OAB (overactive bladder) N32.81 Active 618830006 Problem Epilepsy G40.909 Active 14566470 Problem Cervicalgia M54.2 Active 76764456 Problem Other chronic pain G89.29 Active 75537394 Problem Tobacco abuse Z72.0 Active 00903651 Problem Lumbago M54.5 Active 583111923 Problem Hepatitis C B19.20 Active 33526823 Problem COPD (chronic obstructive pulmonary disease) J44.9 Active 44684203 Problem Diabetes E11.9 Active 76536428 Problem Bipolar I disorder with duy F31.10 Active 88551476 Problem Type 2 diabetes mellitus without complications E11.9 Active 761492293 Problem Stress incontinence of urine N39.3 Active 26448090 Problem Bilateral claudication of lower limb I73.9 Active 861148958 Problem Seasonal allergic rhinitis due to other allergic trigger J30.89 Active 542618288 Problem Hyperlipidemia, unspecified hyperlipidemia type E78.5 Active 44033807 Problem Hypertension, unspecified type I10 Active 57985210 Problem Chronic tension-type headache, not intractable G44.229 Active 762192595 Problem 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 mellitus without complication, without long -term current use of insulin E11.9 Active 070528126 Problem Type 2 diabetes mellitus with hyperglycemia E11.65 Active 538429530 Problem Chronic post-traumatic stress disorder (PTSD) F43.12 Active 407674346 Problem History of hypothyroidism Z86.39 Active 863830771 Problem Hypoglycemia E16.2 Active 227646863 Problem El's esophageal ulceration K22.10 Active 027599489 Problem Bipolar affective disorder, currently depressed, mild F31.31 Active 742860520 Problem Irritable bowel syndrome with diarrhea K58.0 Active 437842003 Problem Stress incontinence N39.3 Active 35401701 Problem History of hypertension Z86.79 Active 566667939 Problem Uncontrolled type 2 diabetes mellitus without complication, without long-term current use of insulin E11.65 Active 014414352 Problem Panic disorder with agoraphobia F40.01 Active 64738137 Problem Type 2 diabetes mellitus with hyperglycemia E11.65 Active 545678709 Problem History of seizures Z87.898 Active 786764827 Problem [facility] current use of insulin Z79.4 Active 825947399 Problem History of AK (myocardial infarction) I25.2 Active 152969070 Problem Mood disorder F39 Active 76523233 Problem Bipolar 2 disorder F31.81 Active 03767385 Problem Gastritis and duodenitis K29.90 Active 986029981 Problem History of high cholesterol Z86.39 Active 390346414 Problem Bipolar I disorder with mood-congruent psychotic features F31.9 Active 768458779 Problem Hypertension, benign I10 Active 69878028 Problem Primary insomnia F51.01 Active 7338380 ALLERGIES No Information ENCOUNTERS Encounter Location Date Diagnosis [place] [address] [address] Nov, [facility], [place] [address] [address]- [address] Jul, [facility] [place] [address] 20780- 0728 Jul, [facility], [place] [address] [place] [id number] [place] [address] 25420- 8848 Jul, Bipolar 2 disorder F31.81 ; Panic disorder with agoraphobia F40.01 and Chronic post-traumatic stress disorder (PTSD) F43.12 [facility], [place] [address] [address]- 39[address] Jun, [facility] [place] [address] 132[address]- 8508 Jun, [facility], [place] [address] 22616- 2177 Jun, Lumbago M54.5 [facility], [place] [address] [facility] [id number] [address] Jun, Type 2 diabetes mellitus with hyperglycemia E11.65 [facility], [place] [address] [place] [id number] [place] [address] 03767- 8796 Jun, [facility], [place] [address] [place] [id number] [place] [address] 92516- 7881 Jun, Type 2 diabetes mellitus with hyperglycemia E11.65 ; El 's esophageal ulceration K22.10 and Lumbago M54.5 [facility], [place] [address] [place] [id number] [place] [address] 43701- 2280 Jun, Type 2 diabetes mellitus with hyperglycemia E11.65 [facility], [place] [address] [place] [id number] [place] [address] 69006- 9356 Jun, [facility] [place] [address] [place] [id number] [place] [address] 00743- 3254 Jun, [facility], [place] [address] [place] [id number] [place] [address] 82522- 8359 Jun, Bipolar affective disorder, currently depressed, mild F31.31 ; Chronic post-traumatic stress disorder (PTSD) F43.12 and Panic disorder with agoraphobia F40.01 [facility], [place] [id number] [place] [address] 16488- 9344 Jun, [facility], [place] [id number] [place] [address] 91505- 6711 Jun, [facility] [place] [id number] [place] [address] 40465- 0375 Jun, Type 2 diabetes mellitus with hyperglycemia E11.65 [facility], [place] [address] [place] [id number] [place] [address] 50533- 0873 Jun, Uncontrolled type 2 diabetes mellitus with hyperglycemia E11.65 [facility], [place] [id number] [place] [address] 96906- 4045 Jun, [facility], [place] [address] [id number] [address] 9235 May, Lumbago M54.5 [facility] [address] [address] May, [facility], [place] [address] [place] [id number] [place] [address] 1306 May, [facility], [place] [address] [address] 3276 May, [facility], [place] [address] [place] [id number] [place] [address]- 8021 May, [facility], [place] [address] [place] [id number] [place] [address], [place] [address]- 4294 May, [facility], [place] [address] [id number] [address]- 9220 May, [facility], [place] [address] [place] [address] 86416- 9948 May, [facility], [place] [address] [address]- 1220 May, Lumbago M54.5 [facility], [place] [address] [address] 3121 May, [facility], [place] [address] [address] [address], [address] of the chest R93.8 [facility], [place] [address] [address]- 6800 Apr, Bipolar 2 disorder F31.81 ; Chronic post-traumatic stress disorder (PTSD) F43.12 and Panic disorder with agoraphobia F40.01 [facility], [place] [address] [address]- [address] Apr, [address] of the chest R93.8 [facility], [place] [address] [address]- [address], [address] of the chest R93.8 [facility], [place] [address] [place] [id number] [place] [address] 64474- 7358 Apr, [place] [address] 9[address]39- 3962 Apr, Type 2 diabetes mellitus with hyperglycemia E11.65 [place] [address] [place] [id number] [place] [address] 05844- 9661 Apr, 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 mellitus without complication, without long-term current use of insulin E11.9 ; Watery eyes H04.203 ; Low back pain M54.5 ; Other chronic pain G89.29 ; Chronic tension-type headache, not intractable G44.229 ; Uncontrolled type 2 diabetes mellitus without complication , without long-term current use of insulin E11.65 and Bronchitis J40 [place] [address] [place] [id number] [place] [address] 23383- 5570 Apr, [place] [address] [place] [id number] [place] [address] 12876- 7698 Apr, Lumbago M54.5 [place] [address] [place] [id number] [place] [address] 65048- 7712 March, [facility] [address] [place] [id number] [place] [address] 08025 -2101 March, Cough R05 ; Pneumonia due to infectious organism, unspecified laterality, unspecified part of lung J18.9 and Non-intractable vomiting with nausea, unspecified vomiting type R11.2 [place] [address] [place] [id number] [place] [address] 29110- 4862 March, Bronchitis J40 [facility] [place] [address] [place] [id number] [place] [address] 82905- 6537 March, [place] [address] 48428- 1677 March, El's esophageal ulceration K22.10 and Type 2 diabetes mellitus with hyperglycemia E11.65 [place] [address] [place] [address]- 9570 March, Panic disorder with agoraphobia F40.01 ; Chronic post- traumatic stress disorder (PTSD) F43.12 and Bipolar 2 disorder F31.81 [facility], [place] [address] [place] [id number] [place] [address] 66807- 1223 March, Type 2 diabetes mellitus with hyperglycemia E11.65 [place] [address] [place] [id number] [place] [address] 37529- 2901 March, [facility], [place] [address] [place] [id number] [place] [address] 08979- 4559 March, Lumbago M54.5 [place] [address] [place] [id number] [place] [address] 16992- 1251 March, [facility], [place] [address] [place] [id number] [place] [address] 73439- 8251 March, Irritable bowel syndrome with diarrhea K58.0 ; Primary insomnia F51.01 ; Type 2 diabetes mellitus with hyperglycemia E11.65 and skin grader current use of insulin Z79.4 [place] [address] [place] [id number] [place] [address] 29102- 0886 March, [place] [address] [place] [id number] [place] [address] 17604- 7396 Jan, [facility], [place] [address] [place] [id number] [place] [address] 97800- 9677 Jan, [facility], [place] [address] [place] [id number] [place] [address] 94046- 1450 Jan, [facility], [place] [address] [place] [id number] [place] [address] 37317- 0709 Jan, [facility] [place] [address] [place] [id number] [place] [address] 89271- 5400 Jan, Dizziness R42 [facility], [place] [address] [place] [id number] [place] [address] 78075- 8313 Jan, Bipolar affective disorder, currently depressed, mild F31.31 ; Panic disorder with agoraphobia F40.01 and Chronic post-traumatic stress disorder (PTSD) F43.12 [place] [address] 74916- 3205 17 Jan, 2018 Dizziness R42 [place] [address] [place] [id number] [place] [address] 36468- 7890 11 Jan, 2018 Chest pain, unspecified type R07.9 ; Exertional dyspnea R06.09 ; Hypertension, unspecified type I10 and Hyperlipidemia, unspecified hyperlipidemia type E78.5 [place] [address] 81599- 3314 Jan, [place] [address] 68397- 0026 Jan, Lumbago M54.[address] 13993- 8370 04 Jan, 2018 El's esophageal ulceration K22.10 ; Blister (nonthermal ) of oral cavity, initial encounter S00.522A ; Local infection of the skin and subcutaneous tissue, unspecified L08.9 ; Type 2 diabetes mellitus with hyperglycemia E11.65 ; skin grader current use of insulin Z79.4 and Stress incontinence N39.3 [place] [address] [place] [id number] [place] [address] 94682- 4109 Dec, [place] [address] 03907- 8413 Dec, [place] [address] [place] [id number] [place] [address] 32898- 4590 Dec, [facility] [address] [id number] Dec, Dental examination Z01.20 [place] [address] [place] [id number] [place] [address] 79545- 4070 15 Dec, 2017 Acute pain of right knee M25.561 [place] [address] 02822- 7912 Dec, [place] [address] [place] [id number] [place] [address] 02729- 2617 Dec, [place] [address] [place] [id number] [place] [address] 61331- 5367 Dec, Lumbago M54.5 ; Acute pain of right knee M25.561 and Seasonal allergic rhinitis due to other allergic trigger J30.89 [place] [address] [place] [id number] [place] [address] 03206- 5793 Dec, Type 2 diabetes mellitus with hyperglycemia E11.65 [place] [address] [place] [id number] [place] [address] 12338- 7398 Dec, [place] [address] [place] [id number] [place] [address] 76269- 0243 Dec, [place] [address] [place] [id number] [place] [address] 83305- 4999 23 Dec, 2017 [place] [address] [place] [id number] [place] [address] 81741- 6199 Dec, [place] [address] [place] [id number] [place] [address] 16297- 1029 Dec, Chronic post-traumatic stress disorder (PTSD) F43.12 and Panic disorder with agoraphobia F40.01 [place] [address] [place] [id number] [place] [address] 31857- 5291 13 Dec, 2017 Low back pain M54.5 [place] [address] [place] [id number] [place] [address] 83529- 6774 12 Dec, 2017 Type 2 diabetes mellitus with hyperglycemia E11.65 ; [facility] current use of insulin Z79.4 ; Low back pain M54.5 ; Other chronic pain G89.29 and Encounter for therapeutic drug level monitoring Z51.81 [place] [address] [place] [id number] [place] [address] 45700- 2836 09 Dec, 2017 Coughing R05 [place] [address] [address]- 2555 Dec, [facility] [address] [address] Dec, Dental examination Z01.20 [facility], [place] [address] [place] [id number] [place] [address] 50117- 8738 Nov, Type 2 diabetes mellitus without complications E11.9 and Encounter for therapeutic drug level monitoring Z51.81 [place] [address] [place] [id number] [place] [address] 86147- 8716 Nov, [place] [address] [place] [id number] [place] [address] 03208- 1690 Oct, Type 2 diabetes mellitus without complications E11.9 [place] [address] [place] [id number] [place] [address] 64924- 0151 Oct, Type 2 diabetes mellitus with hyperglycemia E11.65 [place] [address] [place] [id number] [place] [address] 98449- 7784 Aug, Type 2 diabetes mellitus without complications E11.9 [place] [address] [place] [id number] [place] [address] 94038- 5779 Aug, Type 2 diabetes mellitus without complications E11.9 ; Hypoglycemia E16.2 ; Lumbago M54.5 ; Stress incontinence of urine N39.3 and History of AK (myocardial infarction) I25.2 [place] [address] [place] [address] 27397- 6029 Jun, [place] [address] [place] [address] 71036- 0167 May, [place] [address] [place] [id number] [place] [address] 02268- 7447 Apr, Panic disorder with agoraphobia F40.01 [place] [address] [place] [address] 18801- 2747 Apr, Panic disorder with agoraphobia F40.01 [place] [address] [address]- 5392 Apr, [facility], [place] [address] [place] [id number] [place] [address] 15518- 7358 March, Other chronic pain G89.29 [facility], [place] [address] [address]- 4867 March, [facility] [place] [address] [place] [id number] [place] [address] 07388- 4739 March, [facility] [place] [address] [address]- 5043 March, [facility] [place] [address] [place] [id number] [place] [address] 46850- 5918 March, [facility] [place] [address] [place] [address] 40955- 8675 March, Type 2 diabetes mellitus without complications E11.9 [facility], [place] [address] [address]- 5395 March, Diarrhea, unspecified type R19.7 [facility], [place] [address] [place] [address] 82089- 8644 March, Bipolar 2 disorder F31.81 ; Chronic post-traumatic stress disorder (PTSD) F43.12 and Type 2 diabetes mellitus with hyperglycemia E11.65 [facility] [place] [address] [address]- 4226 March, [facility], [place] [address] [address]- 2275 March, [facility] [place] [address] [address]- 6388 March, Hypertension, benign I10 ; Type 2 diabetes mellitus with hyperglycemia E11.65 ; Hepatitis C B19.20 ; Gastritis and duodenitis K29.90 and Dysuria R30.0 [facility] [place] [address] [address]- 2320 March, Hypertension, benign I10 ; Type 2 diabetes mellitus with hyperglycemia E11.65 ; Hepatitis C B19.20 ; Gastritis and duodenitis K29.90 and Dysuria R30.0 [place] [address] [place] [id number] [place] [address] 70122- 3916 March, Panic disorder with agoraphobia F40.01 ; Chronic post- traumatic stress disorder (PTSD) F43.12 ; Epilepsy G40.909 and Bipolar I disorder with mood-congruent psychotic features F31.9 [place] [address] [place] [id number] [place] [address] 32917- 8060 March, [place] [address] [place] [id number] [place] [address] 21271- 3328 March, Type 2 diabetes mellitus with hyperglycemia E11.65 [place] [address] [place] [id number] [place] [address] 50768- 7789 18 Jan, 2017 Bipolar I disorder with duy F31.10 [place] [address] [place] [id number] [place] [address] 01920- 1465 Jan, Bipolar 2 disorder F31.81 ; Chronic post-traumatic stress disorder (PTSD) F43.12 and Type 2 diabetes mellitus with hyperglycemia E11.65 [place] [address] [place] [id number] [place] [address] 75934- 3751 Jan, [place] [address] [place] [id number] [place] [address] 99747- 8669 Jan, [place] [address] [place] [id number] [place] [address] 50491- 1786 14 Jan, 2017 Panic disorder with agoraphobia F40.01 [place] [address] 18742- 9933 Jan, Panic disorder with agoraphobia F40.01 ; Bipolar I disorder with mood-congruent psychotic features F31.9 ; Chronic post-traumatic stress disorder (PTSD) F43.12 and Epilepsy G40.909 [place] [address] [place] [id number] [place] [address] 32346- 4309 Jan, [facility] [place] [address] [place] [id number] [place] [address] 16903- 0049 Jan, [facility] [place] [address] [place] [id number] [place] [address] 38071- 8696 10 Jan, 2017 Type 2 diabetes mellitus without complications E11.9 and Hypoglycemia E16.2 [facility] [place] [address] 52571- 1128 07 Jan, 2017 Type 2 diabetes mellitus without complications E11.9 ; Primary insomnia F51.01 and Hypertension, benign I10 [facility] [place] [address] [place] [id number] [place] [address] 73825- 1404 Jan, [facility] [address] [place] [id number] [place] [address] [id number] Jan, [facility], [place] [address] [place] [id number] [place] [address] 35859- 5247 Dec, Type 2 diabetes mellitus with hyperglycemia E11.65 [facility] [place] [address] [place] [id number] [place] [address] 99099- 3888 Dec, [facility] [place] [address] [place] [id number] [place] [address] 68862- 2226 Dec, Bipolar 2 disorder F31.81 ; Panic disorder with agoraphobia F40.01 ; Chronic post-traumatic stress disorder (PTSD) F43.12 and Epilepsy G40.909 [facility] [place] [address] [place] [id number] [place] [address] 97344- 0321 Dec, [facility] [place] [address] [place] [id number] [place] [address] 19771- 8458 Dec, [facility] [place] [address] [place] [id number] [place] [address] 39128- 3992 Dec, Bipolar 2 disorder F31.81 ; Panic disorder with agoraphobia F40.01 ; Chronic post-traumatic stress disorder (PTSD) F43.12 and Epilepsy G40.909 [facility] [place] [address] [place] [id number] [place] [address] 47125- 6771 Dec, [facility] [place] [address] [place] [id number] [place] [address] 75336- 7287 Dec, [facility] [place] [address] [place] [id number] [place] [address] 17346- 3415 Dec, [facility] [place] [address] 48178- 2965 Dec, Type 2 diabetes mellitus with hyperglycemia E11.65 ; [facility] current use of insulin Z79.4 and Lumbago M54.5 [place] [address] 32327- 0198 Dec, [place] [address] [place] [id number] [place] [address] 87123- 1964 Dec, [facility] [place] [address] 08397- 0106 Dec, [facility] [address] [place] [id number] [place] [address] 50171 -6703 Dec, Pain of left leg M79.605 and Pain in right leg M79.604 [place] [address] [place] [id number] [place] [address] 41629- 3321 Dec, [facility] [place] [address] [place] [id number] [place] [address] 02505- 2227 Dec, Type 2 diabetes mellitus with hyperglycemia E11.65 [place] [address] [place] [id number] [place] [address] 75476- 4356 Dec, [facility] [place] [address] 62922- 1388 Dec, Type 2 diabetes mellitus with hyperglycemia E11.65 ; skin grader current use of insulin Z79.4 ; Vagina, candidiasis B37.3 and Other chronic pain G89.29 [facility] [place] [address] [place] [id number] [place] [address] 00886- 6210 Nov, Panic disorder with agoraphobia F40.01 [facility] [place] [id number] [address] Nov, [facility], [place] [id number] [place] [phone] Nov, [facility], [place] [id number] [place] [address]- [address] Nov, Hypoglycemia E16.2 [facility], [place] [id number] [place] [id number]- [phone] Nov, [facility], [place] [id number] [place] [phone]- [address] Nov, [facility], [place] [id number] [place] [address]- [address] Nov, [facility], [place] [id number] [place] [phone]- [address] Nov, Type 2 diabetes mellitus with hyperglycemia E11.65 and skin grader current use of insulin Z79.4 [facility], [place] [id number] [place] [address] Nov, Panic disorder with agoraphobia F40.01 ; Bipolar 2 disorder F31.81 ; Chronic post-traumatic stress disorder (PTSD) F43.12 and Epilepsy G40.909 [facility], [place] [id number] [place] [phone] Nov, Panic disorder with agoraphobia F40.01 [facility], [place] [id number] [address] Oct, [facility], [place] [id number] [place] [address] [address]- [address]14 Oct, [facility], [place] [id number] [place] [address] 83913- 7293 Oct, Bipolar 2 disorder F31.81 ; Panic disorder with agoraphobia F40.01 and Mood disorder F39 [facility], [place] [address] [address] 12 Oct, 2016 Diabetes E11.9 ; Type 2 diabetes mellitus with hyperglycemia E11.65 and skin grader current use of insulin Z79.4 [facility], [place] [address] [address] 2546 06 Oct, 2016 [facility], [place] [id number] [place] [address] 11070- 7074 Sep, [facility], [place] [id number] [place] [address] 66572- 6602 Sep, Bipolar 2 disorder F31.81 and Mood disorder F39 [facility], [place] [id number] [place] [address] 81285- 4338 Sep, [facility], [place] [id number] [place] [address] 79438- 1741 Sep, Uncontrolled type 2 diabetes mellitus without complication, without long-term current use of insulin E11.65 [facility], [place] [address] [address] 4198 Sep, [facility], [place] [id number] [place] [address] 98455- 8455 Sep, [facility], [place] [address] [address] 0065 Sep, [facility], [place] [address] [address] 1971 Sep, [facility], [place] [address] [address] 8165 Sep, Bipolar 2 disorder F31.81 ; Chronic post-traumatic stress disorder (PTSD) F43.12 ; Panic disorder with agoraphobia F40.01 and Epilepsy G40.909 [facility], [place] [address] [address] 7837 11 Sep, 2016 Bipolar 2 disorder F31.81 ; PTSD (post-traumatic stress disorder) F43.10 and Panic disorder with agoraphobia F40.01 [facility], [place] [address] [address] 2542 Sep, [facility], [place] [id number] [place] [address] 65269- 2549 Aug, History of seizures Z87.898 ; Panic disorder with agoraphobia F40.01 and Bipolar 2 disorder F31.81 [facility], [place] [id number] [place] [address] 02704- 9178 Aug, [facility], [place] [id number] [place] [address] 91587- 9648 17 Aug, 2016 [facility], [place] [id number] [place] [address] 21881- 1410 Aug, [facility], [place] [id number] [place] [address] 54677- 4157 Aug, [facility], [place] [id number] [place] [address] 85692- 3552 Aug, [facility], [place] [id number] [place] [address] 86285- 9285 Aug, [facility], [place] [id number] [place] [address] 38060- 2313 Aug, Hypoglycemia E16.2 and Bilateral impacted cerumen H61.23 [facility], [place] [id number] [place] [address] 60366- 8525 Aug, [facility], [place] [id number] [place] [address] 58575- 2542 Jul, [facility], [place] [id number] [place] [address] 31178- 9948 21 Jul, 2016 [facility], [place] [id number] [place] [address] 21014- 1735 15 Jul, 2016 Bipolar 2 disorder F31.81 ; Panic disorder with agoraphobia F40.01 ; PTSD (post-traumatic stress disorder) F43.10 and Epilepsy G40.909 [facility], [place] [address] [address]- 3129 Jul, [facility], [place] [id number] [place] [address] 99017- 7595 Jul, Type 2 diabetes mellitus without complications E11.9 and Coughing R05 [facility], [place] [id number] [place] [address] 04778- 4315 Jul, [facility], [place] [id number] [place] [address] 36971- 0602 Jun, [facility], [place] [id number] [place] [address] 25903- 5181 Jun, Bipolar 2 disorder F31.81 ; PTSD (post-traumatic stress disorder) F43.10 and Panic disorder with agoraphobia F40.01 [facility], [place] [id number] [place] [address] 72853- 3041 Jun, [facility], [place] [id number] [place] [address] 41492- 7796 Jun, [facility], [place] [id number] [place] [address] 96580- 7961 Jun, [facility], [place] [id number] [place] [address] 95272- 9243 Jun, Type 2 diabetes mellitus without complications E11.9 and COPD (chronic obstructive pulmonary disease) J44.9 [facility] [address] [id number] May, Dental examination Z01.20 and Dental caries K02.9 [facility], [place] [id number] [place] [address] 16176- 9619 May, Bipolar 2 disorder F31.81 ; PTSD (post-traumatic stress disorder) F43.10 and Panic disorder with agoraphobia F40.01 [facility], [place] [id number] [place] [address] 14518- 1554 May, Lumbago with sciatica, right side M54.41 ; Other chronic pain G89.29 and Uncontrolled type 2 diabetes mellitus without complication, without long-term current use of insulin E11.65 [place] [id number] [place] [address] 83879- 4062 May, Chronic bronchitis, unspecified chronic bronchitis type J42 [facility] [id number] [place] [address] 42591- 3128 May, [facility] [id number] [place] [address] 88091- 4129 May, [facility] [id number] [place] [address] 78399- 8793 May, Chest pain, unspecified type R07.9 ; Tobacco use Z72.0 ; Type 2 diabetes mellitus without complications E11.9 ; Essential hypertension I10 ; Hyperlipidemia, unspecified hyperlipidemia type E78.5 ; Obesity (BMI 30- 39.9) E66.9 ; History of hypothyroidism Z86.39 ; Chronic obstructive pulmonary disease, unspecified COPD type J44.9 ; Anxiety F41.9 ; Bilateral claudication of lower limb I73.9 and Bipolar 2 disorder F31.81 [facility] [id number] [place] [address] 10415- 6627 May, Bipolar 2 disorder F31.81 ; Panic disorder with agoraphobia F40.01 and Tobacco abuse Z72.0 [facility] [id number] [place] [address] 00049- 1585 Apr, [facility] [id number] [place] [address] 16130- 7833 Apr, [facility] [id number] [place] [address] 86959- 8067 Apr, [facility] [id number] [place] [address] 65227- 2325 Apr, Bipolar 2 disorder F31.81 ; Panic disorder with agoraphobia F40.01 and PTSD (post-traumatic stress disorder) F43.10 [facility], [place] [id number] [place] [address] 21962- 8911 23 Apr, 2016 Chronic bronchitis, unspecified chronic bronchitis type J42 ; Cervical neuritis M54.12 and Thoracic neuritis M54.14 [facility] [id number] [place] [address] 02570- 2399 15 Apr, 2016 [place] [address] 58813- 0330 15 Apr, 2016 Cervicalgia M54.2 [place] [facility] [address] 26390- 6269 14 Apr, 2016 Bipolar 2 disorder F31.81 ; Panic disorder with agoraphobia F40.01 and PTSD (post-traumatic stress disorder) F43.10 [facility] [id number] [place] [address] 76331 -4494 13 Apr, 2016 [facility] [id number] [place] [address] 64327 -6489 09 Apr, 2016 Cough R05 and Tobacco dependence F17.200 [place] [address] 73885- 7864 06 Apr, 2016 [facility] [id number] [place] [address] 60030- 8652 Apr, [facility] [id number] [place] [address] 47314- 7292 March, Bipolar 2 disorder F31.81 ; Panic disorder with agoraphobia F40.01 and Generalized anxiety disorder F41.1 [facility] [id number] [place] [address] 87308- 2947 March, Closed displaced fracture of fifth metatarsal bone of right foot with routine healing, subsequent encounter S92.351D [facility] [id number] [place] [address] 10029- 5675 March, Bronchitis J40 [facility] [address] [place] [address]- 1058 March, [facility] [id number] [place] [address] 34440- 6151 March, [facility] [id number] [place] [address] 97025- 4959 March, Foot pain, right M79.671 ; Cervicalgia M54.2 and 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 mellitus without complication, 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 [facility] [id number] [place] [address] 10206- 5580 March, Fracture of fifth metatarsal bone of right foot S92.351A [facility] [id number] [place] [address] 20295- 1327 March, [place] [address] 40426- 5606 Jan, Fracture of fifth metatarsal bone of right foot S92.351A [facility] [id number] [place] [address] 96304- 9160 Jan, Bipolar 2 disorder F31.81 ; PTSD (post-traumatic stress disorder) F43.10 ; Panic disorder with agoraphobia F40.01 and Epilepsy G40.909 [facility] [id number] [place] [address] 18619- 6618 Jan, History of AK (myocardial infarction) I25.2 and History of high cholesterol Z86.39 [place] [address] [place] [address] 10700- 9342 Jan, Bipolar 2 disorder F31.81 ; Panic disorder with agoraphobia F40.01 ; Tobacco abuse Z72.0 and PTSD (post-traumatic stress disorder) F43.10 [place] [address] [place] [address] 75367- 0025 Jan, Fracture of fifth metatarsal bone of right foot S92.351A [facility] [id number] [place] [address] 59621- 8739 Jan, [facility], [place] [address] [place] [address] 49290- 5464 Jan, History of high cholesterol Z86.39 [facility] [id number] [place] [address] 73316- 8341 Jan, History of AK (myocardial infarction) I25.2 [facility] [id number] [place] [address] 97521- 3937 Jan, [facility] [id number] [place] [address] 40200- 6257 Dec, Back pain M54.9 ; Diabetes E11.9 ; Right knee pain M25.561 and Chest pain R07.9 [facility] [id number] [place] [address] 01002- 4939 Dec, [facility] [id number] [place] [address] 73204- 9005 Dec, [facility] [id number] [place] [address] 68890- 9347 Dec, Cervicalgia M54.2 [facility] [id number] [place] [address] 80946- 6556 Dec, Bipolar 2 disorder F31.81 ; PTSD (post-traumatic stress disorder) F43.10 ; Panic disorder with agoraphobia F40.01 and Epilepsy G40.909 [place] [facility] [address] [place] [address] 17194- 7276 08 Jan, 2016 Bipolar 2 disorder F31.81 ; PTSD (post-traumatic stress disorder) F43.10 and Panic disorder with agoraphobia F40.01 [facility] [id number] [place] [address] 29288- 3576 Dec, Diabetes E11.9 [place] [facility] [address] [place] [address] 07979- 2704 Dec, [facility] [id number] [place] [address] 31283- 7761 Dec, Other chronic pain G89.29 ; Hepatitis C B19.20 and History of seizures Z87.898 [facility], [place] [id number] [place] [address] 49867- 3738 24 Dec, 2015 [facility], [place] [address] 31448- 9477 Dec, Bipolar 2 disorder F31.81 and Other chronic pain G89.29 [facility], [place] [address] 64194- 8298 Dec, Cervicalgia M54.2 and Diabetes E11.9 [facility], [place] [address] 93682- 2756 Dec, [facility], [place] [address] 11183- 5949 Dec, [facility], [place] [address] 99171- 7157 Dec, [facility], [place] [address] 33231- 1414 Dec, [facility], [place] [id number] [place] [address] 97738- 0335 Dec, Type 2 diabetes mellitus without complications E11.9 [facility], [place] [id number] [place] [address] 51950- 6699 10 Dec, 2015 [facility], [place] [id number] [place] [address] 08545- 6639 09 Dec, 2015 History of seizures Z87.898 and Hepatitis C B19.20 [facility], [place] [id number] [place] [address] 81318- 6288 08 Dec, 2015 Hepatitis C B19.20 [facility], [place] [id number] [place] [address] 42464- 5306 Dec, [place] [address] [place] [address] 44043- 6938 Dec, Cervicalgia M54.2 ; COPD (chronic obstructive pulmonary disease) J44.9 and Hepatitis C B19.20 [facility] [id number] [place] [address] 56233- 7704 Dec, Bipolar 2 disorder F31.81 ; History of hypertension Z86.79 ; History of anxiety Z86.59 ; Panic disorder with agoraphobia F40.01 and Epilepsy G40.909 [facility] [id number] [place] [address] 69682- 6741 Nov, [address] 87578- 8057 Nov, [address] 54571- 0948 Nov, History of seizures Z87.898 ; OAB (overactive bladder) N32.81 ; Lumbago M54.5 ; Other chronic pain G89.29 ; Cervicalgia M54.2 ; Tobacco abuse Z72.0 ; Tobacco abuse counseling Z71.6 and Impaired fasting glucose R73.01 [facility] [id number] [place] [address] 92701- 9403 Nov, Bipolar 2 disorder F31.81 ; PTSD (post-traumatic stress disorder) F43.10 ; History of anxiety Z86.59 ; History of COPD Z87.09 ; Panic disorder with agoraphobia F40.01 and Moderate depressed bipolar I disorder F31.32 [facility] [id number] [place] [address] 25649- 3019 Nov, PTSD (post-traumatic stress disorder) F43.10 [facility] [id number] [place] [address] [id number] 11 Nov, 2015 Dental examination Z01.20 and Dental caries K02.[address] 38472- 8670 Nov, History of hypertension Z86.79 ; History of hypothyroidism Z86.39 ; History of high cholesterol Z86.39 ; History of COPD Z87.09 and Overactive bladder N32.81 [place] [id number] [place] [address] 54338- 7926 Nov, Bipolar 2 disorder F31.81 and PTSD (post-traumatic stress disorder) F43.[address] 71785- 9194 Nov, PTSD (post-traumatic stress disorder) F43.10 ; Panic disorder with agoraphobia F40.01 ; Epilepsy G40.909 and Moderate depressed bipolar I disorder F31.[address] 65449- 1714 Nov, [address] 25227- 5331 Nov, [address] 26701- 2518 Oct, [address] 90450- 0420 Oct, Generalized anxiety disorder F41.1 ; Major depression, recurrent F33.9 and PTSD (post-traumatic stress disorder) F43.10 [place] [id number] [place] [address] 80010- 1802 Oct, Elevated fasting glucose R73.[address] 79065- 7109 Oct, Elevated fasting glucose R73.01 [place] [id number] [place] [address] 45150- 8828 Oct, History of COPD Z87.09 [place] [id number] [place] [address] 25643- 7491 15 Oct, 2015 General medical exam Z00.00 ; History of hypertension Z86.79 ; History of hypothyroidism Z86.39 ; History of hepatitis Z86.19 ; History of high cholesterol Z86.39 and History of seizures Z87.898 [facility], [place] [address] [address]- 1625 10 Oct, 2015 General medical exam Z00.00 ; History of hypertension Z86.79 ; History of hypothyroidism Z86.39 ; Bipolar 2 disorder F31.81 ; PTSD ( post-traumatic stress disorder) F43.10 ; History of hepatitis Z86.19 ; History of high cholesterol Z86.39 ; History of anxiety Z86.59 ; History of seizures Z87.898 ; History of AK (myocardial infarction) I25.2 and History of COPD Z87.09 [facility] [id number] [place] [address] 97087- 8922 Oct, Generalized anxiety disorder F41.1 ; Depression F32.9 and PTSD (post-traumatic stress disorder) F43.10 [facility] [id number] [place] [address] 11735- 3568 Jan, [facility], [place] [id number] [place] [address] 13562- 3253 Jan, [facility], [place] [id number] [place] [address] 26966537- 4012 Jun, [facility] [address] [place] [id number] Jun, [facility], [place] [address] [address]- 8356 May, [facility], [place] [address] [place] [address] 78615- 2781 May, [facility] [address] [place] [id number] May, [facility], [place] [id number] [place] [address] 73033- 5852 May, [facility] [address] [id number] May, [facility], [place] [address], [place] [address]- 1126 May, IMMUNIZATIONS No Known Immunizations SOCIAL HISTORY Never Assessed REASON FOR VISIT Prior Authorization Request PLAN OF CARE VITAL SIGNS MEDICATIONS Unknown Medications RESULTS No Results PROCEDURES No Known procedures INSTRUCTIONS MEDICATIONS ADMINISTERED No Known Medications MEDICAL (GENERAL) HISTORY Type Description Date Medical History Hypothyroidism Medical History High cholesterol Medical History Hypertension Medical History Brain seizure Medical History Asthma Medical History COPD Medical History Hep C -2005 Medical History AK x 2 last in 2009 Medical History PTSD (post-traumatic stress disorder) Medical History Colon Cancer 2016 Medical History diabites II Surgical History tonsillectomy 1985 Surgical History partial hysterectomy 2004 Surgical History appendectomy 2004 Hospitalization History Surgery(s) only Hospitalization History pneumonia x3 days Hospitalization History Heart cath with stint 05/15/2016 Hospitalization History Diverticulitis, N/V-[facility] 01/28/17
--- OUTSIDE RECORDS SUMMARY | 2019-01-26 07:24 | XMS REPORT ---
Author Author [facility] Address [address] [place] [address] Care Team Providers [facility] [employer] [address] Name Role Phone MARGI GERARDO Unavailable PROBLEMS Type Condition ICD9-CM Code VVF61-NZ Code Onset Dates Condition Status SNOMED Code Problem OAB (overactive bladder) N32.81 Active 689809722 Problem Epilepsy G40.909 Active 44183714 Problem Cervicalgia M54.2 Active 60238027 Problem Other chronic pain G89.29 Active 07561641 Problem Tobacco abuse Z72.0 Active 01453111 Problem Lumbago M54.5 Active 029213516 Problem Hepatitis C B19.20 Active 25316784 Problem COPD (chronic obstructive pulmonary disease) J44.9 Active 83944180 Problem Diabetes E11.9 Active 83242548 Problem Bipolar I disorder with duy F31.10 Active 46819572 Problem Type 2 diabetes mellitus without complications E11.9 Active 496888062 Problem Stress incontinence of urine N39.3 Active 30453201 Problem Bilateral claudication of lower limb I73.9 Active 983802123 Problem Seasonal allergic rhinitis due to other allergic trigger J30.89 Active 482146531 Problem Hyperlipidemia, unspecified hyperlipidemia type E78.5 Active 75705621 Problem Hypertension, unspecified type I10 Active 81258216 Problem Chronic tension-type headache, not intractable G44.229 Active 848663543 Problem 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 mellitus without complication, without long -term current use of insulin E11.9 Active 173885819 Problem Type 2 diabetes mellitus with hyperglycemia E11.65 Active 558039749 Problem Chronic post-traumatic stress disorder (PTSD) F43.12 Active 866476679 Problem History of hypothyroidism Z86.39 Active 194549824 Problem Hypoglycemia E16.2 Active 802244492 Problem El's esophageal ulceration K22.10 Active 713342245 Problem Bipolar affective disorder, currently depressed, mild F31.31 Active 982827351 Problem Irritable bowel syndrome with diarrhea K58.0 Active 092491200 Problem Stress incontinence N39.3 Active 39589046 Problem History of hypertension Z86.79 Active 551737088 Problem Uncontrolled type 2 diabetes mellitus without complication, without long-term current use of insulin E11.65 Active 571305846 Problem Panic disorder with agoraphobia F40.01 Active 75564172 Problem Type 2 diabetes mellitus with hyperglycemia E11.65 Active 668600034 Problem History of seizures Z87.898 Active 384744942 Problem [facility] current use of insulin Z79.4 Active 328314850 Problem History of NH (myocardial infarction) I25.2 Active 965364362 Problem Mood disorder F39 Active 68463985 Problem Bipolar 2 disorder F31.81 Active 53892041 Problem Gastritis and duodenitis K29.90 Active 103571578 Problem History of high cholesterol Z86.39 Active 960510063 Problem Bipolar I disorder with mood-congruent psychotic features F31.9 Active 970002823 Problem Hypertension, benign I10 Active 37059619 Problem Primary insomnia F51.01 Active 1693096 ALLERGIES No Information ENCOUNTERS Encounter Location Date Diagnosis [facility] [id number] [place] [address] 81929- 6704 Nov, [facility] [id number] [place] [address] 07169- 8012 Jul, [facility] [id number] [place] [address] 45940- 6287 Jul, [facility] [id number] [place] [address] 02643- 5134 Jul, Bipolar 2 disorder F31.81 ; Panic disorder with agoraphobia F40.01 and Chronic post-traumatic stress disorder (PTSD) F43.12 [facility] [id number] [place] [address] 35755- 7138 Jun, [facility] [address] 08102- 1727 Jun, [facility] [id number] [place] [address] 83769- 3092 Jun, Lumbago M54.5 [facility] [address], [place] [address] 2895 Jun, Type 2 diabetes mellitus with hyperglycemia E11.65 [facility] [id number] [place] [address] 73368- 2134 Jun, [facility] [id number] [place] [address] 19191- 2672 Jun, Type 2 diabetes mellitus with hyperglycemia E11.65 ; El 's esophageal ulceration K22.10 and Lumbago M54.5 [facility] [id number] [place] [address] 20629- 7847 Jun, Type 2 diabetes mellitus with hyperglycemia E11.65 [facility] [id number] [place] [address] 21429- 8278 Jun, [facility] [id number] [place] [address] 88066- 6717 Jun, [facility] [id number] [place] [address] 08598- 0001 Jun, Bipolar affective disorder, currently depressed, mild F31.31 ; Chronic post-traumatic stress disorder (PTSD) F43.12 and Panic disorder with agoraphobia F40.01 [facility] [address] [place] [address] 09910- 5689 Jun, [facility] [address] [place] [address] 62278- 8037 Jun, [facility] [address] [place] [address] 75940- 7452 Jun, Type 2 diabetes mellitus with hyperglycemia E11.65 [facility] [id number] [place] [address] 85052- 5582 Jun, Uncontrolled type 2 diabetes mellitus with hyperglycemia E11.65 [facility] [address], [place] [address]- 8323 Jun, [facility] [id number] [place] [address] 93306- 1204 May, Lumbago M54.5 [facility] [address] [facility] [id number] [place] [id number] May, [facility] [address] [facility] [id number] [place] [address] 4903 May, [facility] [address] [facility] [id number] [address]- 4494 May, [facility] [id number], [place] [address]- 7091 May, [facility] [id number] [place] [address]- 9223 May, [facility] [id number] [place] [address]- 2075 May, [facility] [address], [place] [address]- 4186 May, [facility] [id number], [place] [address]- 5507 May, Lumbago M54.5 [facility] [address], [place] [address]- 4098 May, [facility] [id number], [place] [address]- 8047 Apr, Abnormal CT of the chest R93.8 [facility] [address], [place] [address]- 0584 Apr, Bipolar 2 disorder F31.81 ; Chronic post-traumatic stress disorder (PTSD) F43.12 and Panic disorder with agoraphobia F40.01 [facility] [address], [place] [address]- [address] Apr, [address] of the chest R93.8 [facility] [id number], [place] [address]- [address] Apr, [address] of the chest R93.8 [facility] [id number] [place] [address] 52177- 2713 14 Apr, 2018 [facility] [address] 29438- 8058 Apr, Type 2 diabetes mellitus with hyperglycemia E11.65 [facility] [id number] [place] [address] 48786- 3887 Apr, 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 mellitus without complication, without long-term current use of insulin E11.9 ; Watery eyes H04.203 ; Low back pain M54.5 ; Other chronic pain G89.29 ; Chronic tension-type headache, not intractable G44.229 ; Uncontrolled type 2 diabetes mellitus without complication , without long-term current use of insulin E11.65 and Bronchitis J40 [facility] [id number] [place] [address] 81659- 9585 Apr, [facility] [address] 41265- 0227 Apr, Lumbago M54.5 [facility] [id number] [place] [address] 32553- 0380 March, [facility] [id number] [place] [address] 73149 -1439 March, Cough R05 ; Pneumonia due to infectious organism, unspecified laterality, unspecified part of lung J18.9 and Non-intractable vomiting with nausea, unspecified vomiting type R11.2 [facility] [id number] [place] [address] 92280- 2086 March, Bronchitis J40 [facility] [id number] [place] [address] 73221- 5442 March, [facility] [address] 86960- 5418 March, El's esophageal ulceration K22.10 and Type 2 diabetes mellitus with hyperglycemia E11.65 [facility] [address] 07936- 5616 March, Panic disorder with agoraphobia F40.01 ; Chronic post- traumatic stress disorder (PTSD) F43.12 and Bipolar 2 disorder F31.81 [facility] [id number] [place] [address] 82695- 3075 March, Type 2 diabetes mellitus with hyperglycemia E11.65 [facility] [id number] [place] [address] 74838- 7747 March, [facility] [id number] [place] [address] 86612- 2210 March, Lumbago M54.5 [facility] [id number] [place] [address] 74008- 4306 March, [facility] [id number] [place] [address] 11137- 5760 March, Irritable bowel syndrome with diarrhea K58.0 ; Primary insomnia F51.01 ; Type 2 diabetes mellitus with hyperglycemia E11.65 and long term acute care registered nurse current use of insulin Z79.4 [facility] [id number] [place] [address] 96339- 5574 March, [facility] [id number] [place] [address] 53364- 6015 Jan, [facility] [id number] [place] [address] 74824- 9984 Jan, [facility] [id number] [place] [address] 14564- 1908 Jan, [facility] [id number] [place] [address] 00428- 2873 Jan, [facility] [id number] [place] [address] 43055- 8393 Jan, Dizziness R42 [facility] [id number] [place] [address] 29721- 9409 Jan, Bipolar affective disorder, currently depressed, mild F31.31 ; Panic disorder with agoraphobia F40.01 and Chronic post-traumatic stress disorder (PTSD) F43.12 [facility] [id number] [place] [address] 64744- 4600 17 Jan, 2018 Dizziness R42 [facility] [id number] [place] [address] 12344- 7746 11 Jan, 2018 Chest pain, unspecified type R07.9 ; Exertional dyspnea R06.09 ; Hypertension, unspecified type I10 and Hyperlipidemia, unspecified hyperlipidemia type E78.5 [facility] [address] 73800- 3181 Jan, [facility] [address] 82315- 4896 09 Jan, 2018 Lumbago M54.5 [facility] [address] 03352- 5327 04 Jan, 2018 El's esophageal ulceration K22.10 ; Blister (nonthermal ) of oral cavity, initial encounter S00.522A ; Local infection of the skin and subcutaneous tissue, unspecified L08.9 ; Type 2 diabetes mellitus with hyperglycemia E11.65 ; [facility] current use of insulin Z79.4 and Stress incontinence N39.3 [facility] [id number] [place] [address] 57487- 4506 27 Dec, 2017 [facility] [address] 47180- 3518 27 Dec, 2017 [facility] [id number] [place] [address] 64362- 9350 Dec, [facility] [address] [id number] 16 Dec, 2017 Dental examination Z01.20 [facility] [id number] [place] [address] 77053- 4917 15 Dec, 2017 Acute pain of right knee M25.561 [facility] [address] 17819- 0868 Dec, [facility] [id number] [place] [address] 24356- 3108 Dec, [facility] [address] 78562- 5303 Dec, Lumbago M54.5 ; Acute pain of right knee M25.561 and Seasonal allergic rhinitis due to other allergic trigger J30.89 [facility] [address] 15264- 2468 Dec, Type 2 diabetes mellitus with hyperglycemia E11.65 [facility] [address] 46683- 1501 Dec, [facility] [address] 70445- 4729 Dec, [facility] [address] 49105- 3868 Dec, [facility] [id number] [place] [address] 50395- 2811 Dec, [facility] [id number] [place] [address] 34350- 8554 Dec, Chronic post-traumatic stress disorder (PTSD) F43.12 and Panic disorder with agoraphobia F40.01 [facility] [id number] [place] [address] 76893- 0954 13 Dec, 2017 Low back pain M54.5 [facility] [id number] [place] [address] 44305- 0835 12 Dec, 2017 Type 2 diabetes mellitus with hyperglycemia E11.65 ; long term acute care registered nurse current use of insulin Z79.4 ; Low back pain M54.5 ; Other chronic pain G89.29 and Encounter for therapeutic drug level monitoring Z51.81 [facility] [id number] [place] [address] 08009- 1001 09 Dec, 2017 Coughing R05 [facility] [address] [address]- 5686 09 Dec, 2017 [facility] [address] [address] 07 Dec, 2017 Dental examination Z01.20 [facility] [address], [place] [address]- 8527 Nov, Type 2 diabetes mellitus without complications E11.9 and Encounter for therapeutic drug level monitoring Z51.81 [facility] [id number] [place] [address] 34709- 6736 Nov, [facility] [id number] [place] [address] 15236- 6602 Oct, Type 2 diabetes mellitus without complications E11.9 [facility] [address] [place] [address] 13759- 6411 Oct, Type 2 diabetes mellitus with hyperglycemia E11.65 [facility] [id number] [place] [address] 44248- 4425 Aug, Type 2 diabetes mellitus without complications E11.9 [facility] [address] [place] [address] 07469- 0982 Aug, Type 2 diabetes mellitus without complications E11.9 ; Hypoglycemia E16.2 ; Lumbago M54.5 ; Stress incontinence of urine N39.3 and History of NH (myocardial infarction) I25.2 [facility] [address], [place] [address]- 1178 Jun, [facility] [address], [place] [address]- 9646 May, [facility] [address] [place] [address] 79337- 5130 Apr, Panic disorder with agoraphobia F40.01 [facility] [address], [place] [address]- 5425 Apr, Panic disorder with agoraphobia F40.01 [facility] [address] [address]- 4606 Apr, [facility] [address] [place] [address] 21047- 4866 March, Other chronic pain G89.29 [facility] [address], [place] [address]- 7125 March, [facility] [id number] [place] [address] 82066- 1702 March, [facility] [id number] [place] [address] 02594- 9583 March, [facility] [id number] [place] [address] 29452- 3472 March, [facility] [id number] [place] [address] 84118- 6716 March, Type 2 diabetes mellitus without complications E11.9 [facility] [id number] [place] [address] 19001- 4334 March, Diarrhea, unspecified type R19.7 [facility] [id number] [place] [address] 62838- 6362 March, Bipolar 2 disorder F31.81 ; Chronic post-traumatic stress disorder (PTSD) F43.12 and Type 2 diabetes mellitus with hyperglycemia E11.65 [facility] [address], [place] [address]- 1024 March, [facility] [address], [place] [address]- 3966 March, [facility] [address], [place] [address]- 0683 March, Hypertension, benign I10 ; Type 2 diabetes mellitus with hyperglycemia E11.65 ; Hepatitis C B19.20 ; Gastritis and duodenitis K29.90 and Dysuria R30.0 [facility] [address], [place] [address]- 8490 March, Hypertension, benign I10 ; Type 2 diabetes mellitus with hyperglycemia E11.65 ; Hepatitis C B19.20 ; Gastritis and duodenitis K29.90 and Dysuria R30.0 [facility] [id number] [place] [address] 33985- 6159 March, Panic disorder with agoraphobia F40.01 ; Chronic post- traumatic stress disorder (PTSD) F43.12 ; Epilepsy G40.909 and Bipolar I disorder with mood-congruent psychotic features F31.9 [facility] [id number] [place] [address] 28416- 2143 March, [facility] [address] 43751- 2736 March, Type 2 diabetes mellitus with hyperglycemia E11.65 [facility] [address] 85742- 6196 18 Jan, 2017 Bipolar I disorder with duy F31.10 [facility] [id number] [place] [address] 75277- 0502 Jan, Bipolar 2 disorder F31.81 ; Chronic post-traumatic stress disorder (PTSD) F43.12 and Type 2 diabetes mellitus with hyperglycemia E11.65 [facility] [id number] [place] [address] 97682- 9279 Jan, [facility] [id number] [place] [address] 66026- 7106 Jan, [facility] [id number] [place] [address] 39050- 6736 Jan, Panic disorder with agoraphobia F40.01 [facility] [id number] [place] [address] 40029- 4764 Jan, Panic disorder with agoraphobia F40.01 ; Bipolar I disorder with mood-congruent psychotic features F31.9 ; Chronic post-traumatic stress disorder (PTSD) F43.12 and Epilepsy G40.909 [facility] [address] [place] [address]- 2546 Jan, [facility] [address], [place] [address]- 2071 Jan, [facility] [address] [place] [address] 41908- 7250 10 Jan, 2017 Type 2 diabetes mellitus without complications E11.9 and Hypoglycemia E16.2 [facility] [id number] [place] [address] 97718- 1474 07 Jan, 2017 Type 2 diabetes mellitus without complications E11.9 ; Primary insomnia F51.01 and Hypertension, benign I10 [facility] [id number] [place] [address] 28123- 3750 Jan, [facility] [id number] [place] [address] [id number] Jan, [facility] [address] [place] [address] 04382- 7277 Dec, Type 2 diabetes mellitus with hyperglycemia E11.65 [facility] [address], [place] [address]- 5718 Dec, [facility] [id number] [place] [address] 10476- 5332 Dec, Bipolar 2 disorder F31.81 ; Panic disorder with agoraphobia F40.01 ; Chronic post-traumatic stress disorder (PTSD) F43.12 and Epilepsy G40.909 [facility] [address], [place] [address]- 0874 Dec, [facility] [address], [place] [address]- 6151 Dec, [facility] [id number] [place] [address] 06751- 5661 09 Dec, 2016 Bipolar 2 disorder F31.81 ; Panic disorder with agoraphobia F40.01 ; Chronic post-traumatic stress disorder (PTSD) F43.12 and Epilepsy G40.909 [facility] [id number] [place] [address] 99097- 0315 Dec, [facility] [id number] [place] [address] 70707- 5745 Dec, [facility] [id number] [place] [address] 60036- 1139 Dec, [facility] [address] 01106- 5217 Dec, Type 2 diabetes mellitus with hyperglycemia E11.65 ; [facility] current use of insulin Z79.4 and Lumbago M54.5 [facility] [address] 87970- 6941 Dec, [facility] [address] 10635- 9704 Dec, [facility] [address] 55846- 7878 Dec, [facility] [id number] [place] [address] 53740 -1848 Dec, Pain of left leg M79.605 and Pain in right leg M79.604 [facility] [id number] [place] [address] 60167- 0463 Dec, [facility] [id number] [place] [address] 14977- 6056 Dec, Type 2 diabetes mellitus with hyperglycemia E11.65 [facility] [id number] [place] [address] 06395- 1856 Dec, [facility] [id number] [place] [address] 62664- 2572 Dec, Type 2 diabetes mellitus with hyperglycemia E11.65 ; [facility] current use of insulin Z79.4 ; Vagina, candidiasis B37.3 and Other chronic pain G89.29 [facility] [address] 46937- 9694 Nov, Panic disorder with agoraphobia F40.01 [facility] [address], [place] [address]- 7408 Nov, [facility] [address] [place] [address] 02210- 0389 Nov, [facility] [id number] [place] [address] 24740- 8052 Nov, Hypoglycemia E16.2 [facility] [id number] [place] [address] 55255- 0302 Nov, [facility] [id number] [place] [address] 88412- 2983 Nov, [facility] [id number] [place] [address] 91742- 3105 Nov, [facility] [id number] [place] [address] 24262- 1675 Nov, Type 2 diabetes mellitus with hyperglycemia E11.65 and long term acute care registered nurse current use of insulin Z79.4 [facility] [address] [place] [address] 51133- 1219 Nov, Panic disorder with agoraphobia F40.01 ; Bipolar 2 disorder F31.81 ; Chronic post-traumatic stress disorder (PTSD) F43.12 and Epilepsy G40.909 [facility] [address] [place] [address] 69120- 5872 Nov, Panic disorder with agoraphobia F40.01 [facility] [address], [place] [address]- 1662 Oct, [facility] [id number] [place] [phone] Oct, [facility] [address] [place] [address] Oct, Bipolar 2 disorder F31.81 ; Panic disorder with agoraphobia F40.01 and Mood disorder F39 [facility] [address], [place] [address] 12 Oct, 2016 Diabetes E11.9 ; Type 2 diabetes mellitus with hyperglycemia E11.65 and [facility] current use of insulin Z79.4 [facility] [address], [place] [address] 06 Oct, 2016 [facility] [id number] [place] [id number] Sep, [facility] [id number] [place] [phone] Sep, Bipolar 2 disorder F31.81 and Mood disorder F39 [facility] [id number] [place] [id number]- [phone] Sep, [facility] [id number] [place] [address] 74168- 8134 Sep, Uncontrolled type 2 diabetes mellitus without complication, without long-term current use of insulin E11.65 [facility] [address], [place] [address] Sep, [facility] [id number] [place] [address] 69446- 6288 Sep, [facility] [id number] [place] [address] 40350- 7679 Sep, [facility] [id number] [place] [address] 10645- 1464 Sep, [facility] [address], [place] [address] 1974 Sep, Bipolar 2 disorder F31.81 ; Chronic post-traumatic stress disorder (PTSD) F43.12 ; Panic disorder with agoraphobia F40.01 and Epilepsy G40.909 [facility] [address], [place] [address] 2417 11 Sep, 2016 Bipolar 2 disorder F31.81 ; PTSD (post-traumatic stress disorder) F43.10 and Panic disorder with agoraphobia F40.01 [facility] [id number] [place] [address] 56043- 9408 Sep, [facility] [id number] [place] [address] Aug, History of seizures Z87.898 ; Panic disorder with agoraphobia F40.01 and Bipolar 2 disorder F31.81 [facility] [id number] [place] [address] 24663- 5231 Aug, [facility] [id number] [place] [address] 70628- 9723 17 Aug, 2016 [facility] [address] 40669- 9617 Aug, [facility] [id number] [place] [address] 19917- 8656 Aug, [facility] [id number] [place] [address] 96330- 0162 Aug, [facility] [id number] [place] [address] 50841- 3463 Aug, [facility] [id number] [place] [address] 85506- 0067 Aug, Hypoglycemia E16.2 and Bilateral impacted cerumen H61.23 [facility] [id number] [place] [address] 84484- 7174 Aug, [facility] [id number] [place] [address] 12855- 0988 Jul, [facility] [id number] [place] [address] 67540- 9993 21 Jul, 2016 [facility] [id number] [place] [address] 72298- 8455 15 Jul, 2016 Bipolar 2 disorder F31.81 ; Panic disorder with agoraphobia F40.01 ; PTSD (post-traumatic stress disorder) F43.10 and Epilepsy G40.909 [facility] [id number] [place] [address] 97240- 6947 Jul, [facility] [id number] [place] [address] 31309- 3667 Jul, Type 2 diabetes mellitus without complications E11.9 and Coughing R05 [facility] [id number] [place] [address] 63105- 6718 Jul, [facility] [id number] [place] [address] 57590- 7246 Jun, [facility] [address] 33552- 4034 Jun, Bipolar 2 disorder F31.81 ; PTSD (post-traumatic stress disorder) F43.10 and Panic disorder with agoraphobia F40.01 [facility] [address] 20453- 3657 Jun, [facility] [id number] [place] [address] 27514- 7090 Jun, [facility] [address] 74028- 9871 Jun, [facility] [id number] [place] [address] 35052- 0648 Jun, Type 2 diabetes mellitus without complications E11.9 and COPD (chronic obstructive pulmonary disease) J44.9 [facility] [id number] [place] [address] [id number] May, Dental examination Z01.20 and Dental caries K02.9 [facility] [id number] [place] [address] 58133- 0992 May, Bipolar 2 disorder F31.81 ; PTSD (post-traumatic stress disorder) F43.10 and Panic disorder with agoraphobia F40.01 [facility] [id number] [place] [address] 44328- 5577 May, Lumbago with sciatica, right side M54.41 ; Other chronic pain G89.29 and Uncontrolled type 2 diabetes mellitus without complication, without long-term current use of insulin E11.65 [facility] [id number] [place] [address] 37800- 6446 May, Chronic bronchitis, unspecified chronic bronchitis type J42 [facility] [id number] [place] [address] 97780- 6789 May, [facility] [id number] [place] [address] 64842- 9567 May, [facility] [id number] [place] [address] 03884- 1558 May, Chest pain, unspecified type R07.9 ; Tobacco use Z72.0 ; Type 2 diabetes mellitus without complications E11.9 ; Essential hypertension I10 ; Hyperlipidemia, unspecified hyperlipidemia type E78.5 ; Obesity (BMI 30- 39.9) E66.9 ; History of hypothyroidism Z86.39 ; Chronic obstructive pulmonary disease, unspecified COPD type J44.9 ; Anxiety F41.9 ; Bilateral claudication of lower limb I73.9 and Bipolar 2 disorder F31.81 [facility] [id number] [place] [address] 09904- 4176 May, Bipolar 2 disorder F31.81 ; Panic disorder with agoraphobia F40.01 and Tobacco abuse Z72.0 [facility] [id number] [place] [address] 44814- 8664 Apr, [facility] [id number] [place] [address] 06608- 6800 Apr, [facility] [id number] [place] [address] 88157- 7554 Apr, [facility] [id number] [place] [address] 59404- 0018 Apr, Bipolar 2 disorder F31.81 ; Panic disorder with agoraphobia F40.01 and PTSD (post-traumatic stress disorder) F43.10 [facility] [id number] [place] [address] 25090- 8176 23 Apr, 2016 Chronic bronchitis, unspecified chronic bronchitis type J42 ; Cervical neuritis M54.12 and Thoracic neuritis M54.14 [facility] [id number] [place] [address] 68514- 9870 15 Apr, 2016 [facility] [address] 83424- 7773 15 Apr, 2016 Cervicalgia M54.2 [facility] [address] 04188- 9517 14 Apr, 2016 Bipolar 2 disorder F31.81 ; Panic disorder with agoraphobia F40.01 and PTSD (post-traumatic stress disorder) F43.10 [facility] [address] 16217 -1499 13 Apr, 2016 [facility] [address] 81016 -2703 09 Apr, 2016 Cough R05 and Tobacco dependence F17.200 [facility] [address] 25579- 2212 06 Apr, 2016 [facility] [address] 35352- 7399 Apr, [facility] [address] 26097- 2292 March, Bipolar 2 disorder F31.81 ; Panic disorder with agoraphobia F40.01 and Generalized anxiety disorder F41.1 [facility] [id number] [place] [address] 36935- 7091 March, Closed displaced fracture of fifth metatarsal bone of right foot with routine healing, subsequent encounter S92.351D [facility] [id number] [place] [address] 06034- 7567 March, Bronchitis J40 [facility] [address] 86894- 2049 March, [facility] [id number] [place] [address] 47485- 9093 March, [facility] [id number] [place] [address] 18877- 2042 March, Foot pain, right M79.671 ; Cervicalgia M54.2 and 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 mellitus without complication, 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 superintendent insulin use status E11.9 [facility] [id number] [place] [address] 64609- 1039 March, Fracture of fifth metatarsal bone of right foot S92.351A [facility] [address] 13102- 3680 March, [facility] [address] 69510- 0882 Jan, Fracture of fifth metatarsal bone of right foot S92.351A [facility] [id number] [place] [address] 85843- 5381 Jan, Bipolar 2 disorder F31.81 ; PTSD (post-traumatic stress disorder) F43.10 ; Panic disorder with agoraphobia F40.01 and Epilepsy G40.909 [facility] [id number] [place] [address] 66242- 3660 Jan, History of NH (myocardial infarction) I25.2 and History of high cholesterol Z86.39 [facility] [id number] [place] [address] 46875- 0712 Jan, Bipolar 2 disorder F31.81 ; Panic disorder with agoraphobia F40.01 ; Tobacco abuse Z72.0 and PTSD (post-traumatic stress disorder) F43.10 [facility] [id number] [place] [address] 29440- 4463 Jan, Fracture of fifth metatarsal bone of right foot S92.351A [facility] [address] 52799- 3873 Jan, [facility] [id number] [place] [address] 45622- 1865 Jan, History of high cholesterol Z86.39 [facility] [id number] [place] [address] 84734- 5637 Jan, History of [place] (myocardial infarction) I25.2 [facility] [id number] [place] [address] 42501- 5519 Jan, [facility] [id number] [place] [address] 56267- 4475 Dec, Back pain M54.9 ; Diabetes E11.9 ; Right knee pain M25.561 and Chest pain R07.9 [facility] [id number] [place] [address] 98249- 7178 Dec, [facility] [id number] [place] [address] 72219- 2990 Dec, [facility] [id number] [place] [address] 48114- 5244 Dec, Cervicalgia M54.2 [facility] [id number] [place] [address] 37134- 0497 Dec, Bipolar 2 disorder F31.81 ; PTSD (post-traumatic stress disorder) F43.10 ; Panic disorder with agoraphobia F40.01 and Epilepsy G40.909 [facility] [id number] [place] [address] 52022- 0744 08 Jan, 2016 Bipolar 2 disorder F31.81 ; PTSD (post-traumatic stress disorder) F43.10 and Panic disorder with agoraphobia F40.01 [facility] [id number] [place] [address] 29276- 1258 Dec, Diabetes E11.9 [facility] [id number] [place] [address] 20940- 7455 Dec, [facility] [address] [place] [address]- 3116 Dec, Other chronic pain G89.29 ; Hepatitis C B19.20 and History of seizures Z87.898 [facility] [id number] [place] [address] 31535- 5976 24 Dec, 2015 [facility] [id number] [place] [address] 60276- 0364 Dec, Bipolar 2 disorder F31.81 and Other chronic pain G89.29 [facility] [id number] [place] [address] 10987- 1197 Dec, Cervicalgia M54.2 and Diabetes E11.9 [facility] [id number] [place] [address] 30988- 4521 Dec, [facility] [id number] [place] [address] 51633- 5823 Dec, [facility] [id number] [place] [address] 99215- 3377 Dec, [facility] [id number] [place] [address] 57698- 1137 Dec, [facility] [id number] [place] [address] 69294- 4566 Dec, Type 2 diabetes mellitus without complications E11.9 [facility] [id number] [place] [address] 97010- 5490 10 Dec, 2015 [facility] [id number] [place] [address] 46154- 2414 09 Dec, 2015 History of seizures Z87.898 and Hepatitis C B19.20 [facility] [id number] [place] [address] 11038- 5302 08 Dec, 2015 Hepatitis C B19.20 [facility] [id number] [place] [address] 97215- 2794 Dec, [facility] [id number] [place] [address] 65147- 6381 04 Dec, 2015 Cervicalgia M54.2 ; COPD (chronic obstructive pulmonary disease) J44.9 and Hepatitis C B19.20 [facility] [id number] [place] [address] 33041- 6902 02 Dec, 2015 Bipolar 2 disorder F31.81 ; History of hypertension Z86.79 ; History of anxiety Z86.59 ; Panic disorder with agoraphobia F40.01 and Epilepsy G40.909 [facility] [id number] [place] [address] 84087- 3104 Nov, [facility] [address] 47205- 2920 Nov, [address] 51734- 7517 Nov, History of seizures Z87.898 ; OAB (overactive bladder) N32.81 ; Lumbago M54.5 ; Other chronic pain G89.29 ; Cervicalgia M54.2 ; Tobacco abuse Z72.0 ; Tobacco abuse counseling Z71.6 and Impaired fasting glucose R73.01 [facility] [id number] [place] [address] 45001- 0931 Nov, Bipolar 2 disorder F31.81 ; PTSD (post-traumatic stress disorder) F43.10 ; History of anxiety Z86.59 ; History of COPD Z87.09 ; Panic disorder with agoraphobia F40.01 and Moderate depressed bipolar I disorder F31.32 [facility] [id number] [place] [address] 84992- 3886 12 Nov, 2015 PTSD (post-traumatic stress disorder) F43.10 [facility] [id number] [place] [address] [id number] 11 Nov, 2015 Dental examination Z01.20 and Dental caries K02.9 [facility] [id number] [place] [address] 20490- 4231 08 Nov, 2015 History of hypertension Z86.79 ; History of hypothyroidism Z86.39 ; History of high cholesterol Z86.39 ; History of COPD Z87.09 and Overactive bladder N32.[address] 44087- 3198 Nov, Bipolar 2 disorder F31.81 and PTSD (post-traumatic stress disorder) F43.[address] 32581- 9269 Nov, PTSD (post-traumatic stress disorder) F43.10 ; Panic disorder with agoraphobia F40.01 ; Epilepsy G40.909 and Moderate depressed bipolar I disorder F31.[address] 01652- 1590 Nov, [address] 32754- 3737 Nov, [address] 63318- 3169 Oct, [place] [id number] [place] [address] 86562- 3606 Oct, Generalized anxiety disorder F41.1 ; Major depression, recurrent F33.9 and PTSD (post-traumatic stress disorder) F43.10 [place] [id number] [place] [address] 60221- 8458 Oct, Elevated fasting glucose R73.01 [facility] [id number] [place] [address] 20464- 7214 Oct, Elevated fasting glucose R73.01 [facility] [id number] [place] [address] 21723- 7201 Oct, History of COPD Z87.09 [facility] [id number] [place] [address] 60088- 6381 15 Oct, 2015 General medical exam Z00.00 ; History of hypertension Z86.79 ; History of hypothyroidism Z86.39 ; History of hepatitis Z86.19 ; History of high cholesterol Z86.39 and History of seizures Z87.898 [facility] [address], [place] [address]- 6507 10 Oct, 2015 General medical exam Z00.00 ; History of hypertension Z86.79 ; History of hypothyroidism Z86.39 ; Bipolar 2 disorder F31.81 ; PTSD ( post-traumatic stress disorder) F43.10 ; History of hepatitis Z86.19 ; History of high cholesterol Z86.39 ; History of anxiety Z86.59 ; History of seizures Z87.898 ; History of [place] (myocardial infarction) I25.2 and History of COPD Z87.09 [facility] [id number] [place] [address] 46863- 9851 10 Oct, 2015 Generalized anxiety disorder F41.1 ; Depression F32.9 and PTSD (post-traumatic stress disorder) F43.10 [facility] [address] [address]- 5621 Jan, [facility] [address] [address]- 6857 Jan, [facility] [id number] [address]- 9453 Jun, [facility] [address] [place] [id number] Jun, [facility] [address] [address]- 7210 May, [facility] [id number] [place] [address] 36545- 6821 May, [facility] [address] [place] [id number] May, [facility] [address] [address]- 6378 May, [facility] [address] [place] [id number] May, [facility] [address], [place] [address]- 5156 May, IMMUNIZATIONS No Known Immunizations SOCIAL HISTORY [...] Medical History Hep C -2004 Medical History [place] x 2 last in [...]
--- OUTSIDE RECORDS SUMMARY | 2019-01-26 07:25 | XMS REPORT ---
Author Author GERARDO KISER [facility] Address [address] [place] [address] Care Team Providers Care Internal Combustion Engineer Name Role Phone MRAGI GERARDO Unavailable PROBLEMS Type Condition ICD9-CM Code SXU30-SJ Code Onset Dates Condition Status SNOMED Code Problem OAB (overactive bladder) N32.81 Active 340246187 Problem Epilepsy G40.909 Active 27143543 Problem Cervicalgia M54.2 Active 72931348 Problem Other chronic pain G89.29 Active 09666538 Problem Tobacco abuse Z72.0 Active 88567178 Problem Lumbago M54.5 Active 340956922 Problem Hepatitis C B19.20 Active 35609671 Problem COPD (chronic obstructive pulmonary disease) J44.9 Active 22361741 Problem Diabetes E11.9 Active 93526797 Problem Bipolar I disorder with duy F31.10 Active 92125118 Problem Type 2 diabetes mellitus without complications E11.9 Active 177896553 Problem Stress incontinence of urine N39.3 Active 85740970 Problem Bilateral claudication of lower limb I73.9 Active 993190391 Problem Seasonal allergic rhinitis due to other allergic trigger J30.89 Active 382869403 Problem Hyperlipidemia, unspecified hyperlipidemia type E78.5 Active 31119579 Problem Hypertension, unspecified type I10 Active 60614086 Problem Chronic tension-type headache, not intractable G44.229 Active 573785672 Problem 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 mellitus without complication, without long -term current use of insulin E11.9 Active 136119787 Problem Type 2 diabetes mellitus with hyperglycemia E11.65 Active 272743261 Problem Chronic post-traumatic stress disorder (PTSD) F43.12 Active 621790970 Problem History of hypothyroidism Z86.39 Active 275085980 Problem Hypoglycemia E16.2 Active 891531256 Problem El's esophageal ulceration K22.10 Active 666924575 Problem Bipolar affective disorder, currently depressed, mild F31.31 Active 541816861 Problem Irritable bowel syndrome with diarrhea K58.0 Active 041015457 Problem Stress incontinence N39.3 Active 64323823 Problem History of hypertension Z86.79 Active 881738649 Problem Uncontrolled type 2 diabetes mellitus without complication, without long-term current use of insulin E11.65 Active 739550647 Problem Panic disorder with agoraphobia F40.01 Active 09751496 Problem Type 2 diabetes mellitus with hyperglycemia E11.65 Active 934286452 Problem History of seizures Z87.898 Active 036036377 Problem skilled nursing current use of insulin Z79.4 Active 588107647 Problem History of NC (myocardial infarction) I25.2 Active 579649460 Problem Mood disorder F39 Active 65866402 Problem Bipolar 2 disorder F31.81 Active 47268513 Problem Gastritis and duodenitis K29.90 Active 188540881 Problem History of high cholesterol Z86.39 Active 604790663 Problem Bipolar I disorder with mood-congruent psychotic features F31.9 Active 057366892 Problem Hypertension, benign I10 Active 51325305 Problem Primary insomnia F51.01 Active 6092476 ALLERGIES No Information ENCOUNTERS Encounter Location Date Diagnosis [facility] [id number] [place] [address] 79000- 3793 Nov, [facility] [id number] [place] [address] 24541- 8162 Jul, [facility] [id number] [place] [address] 84901- 6138 Jul, Bipolar 2 disorder F31.81 ; Panic disorder with agoraphobia F40.01 and Chronic post-traumatic stress disorder (PTSD) F43.12 [facility] [id number] [place] [address] 88122- 2471 Jun, [facility] [id number] [place] [address] 71010- 4582 Jun, [facility] [id number] [place] [address] 53726- 9196 Jun, Lumbago M54.5 [facility] [id number] [place] [address] 71788- 0975 Jun, Type 2 diabetes mellitus with hyperglycemia E11.65 [facility] [address] [address] 7057 Jun, [facility] [id number] [place] [address] 69752- 7876 Jun, Type 2 diabetes mellitus with hyperglycemia E11.65 ; El 's esophageal ulceration K22.10 and Lumbago M54.5 [facility] [id number] [place] [address] 21632- 1428 Jun, Type 2 diabetes mellitus with hyperglycemia E11.65 [facility] [address] [address] 9017 Jun, [facility] [id number] [place] [address] 73376- 8331 Jun, [facility] [id number] [place] [address] 72681- 5736 Jun, Bipolar affective disorder, currently depressed, mild F31.31 ; Chronic post-traumatic stress disorder (PTSD) F43.12 and Panic disorder with agoraphobia F40.01 [facility] [id number] [place] [address] 87124- 2062 Jun, [facility] [id number] [place] [address] 89016- 5923 Jun, [facility] [address], [place] [address]- 0649 Jun, Type 2 diabetes mellitus with hyperglycemia E11.65 [facility] [address], [place] [address]- 4184 Jun, Uncontrolled type 2 diabetes mellitus with hyperglycemia E11.65 [facility] [address], [place] [address]- 0533 Jun, [facility] [address], [place] [address]- 4778 May, Lumbago M54.5 [place] [id number] [address] May, [facility] [address], [place] [address]- 5579 May, [facility] [address], [place] [address]- 9859 May, [facility] [address], [place] [address]- 1602 May, [facility] [address] [address]- 6260 May, [facility] [address], [place] [address]- 4640 May, [facility] [address], [place] [address]- 8196 May, [facility] [address] [address]- 0901 May, Lumbago M54.5 [facility] [address], [place] [address]- 4104 May, [facility] [address], [place] [address]- [address], [address] of the chest R93.8 [facility] [address], [place] [address]- 6210 Apr, Bipolar 2 disorder F31.81 ; Chronic post-traumatic stress disorder (PTSD) F43.12 and Panic disorder with agoraphobia F40.01 [facility] [address] [address] [address], [address] of the chest R93.8 [facility] [address], [place] [address]- [address] Apr, [address] of the chest R93.8 [facility] [address], [place] [address]- 1843 Apr, [place] [id number] [place] [address] 73079- 0155 Apr, Type 2 diabetes mellitus with hyperglycemia E11.65 [place] [id number] [place] [address] 83561- 6798 Apr, 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 mellitus without complication, without long-term current use of insulin E11.9 ; Watery eyes H04.203 ; Low back pain M54.5 ; Other chronic pain G89.29 ; Chronic tension-type headache, not intractable G44.229 ; Uncontrolled type 2 diabetes mellitus without complication , without long-term current use of insulin E11.65 and Bronchitis J40 [place] [address] 95974- 3597 Apr, [place] [id number] [place] [address] 40218- 5465 Apr, Lumbago M54.5 [place] [address] 00851- 9518 March, [facility]ALK [facility] [id number] [place] [address] 63499 -9211 March, Cough R05 ; Pneumonia due to infectious organism, unspecified laterality, unspecified part of lung J18.9 and Non-intractable vomiting with nausea, unspecified vomiting type R11.2 [place] [id number] [place] [address] 16800- 4464 March, Bronchitis J40 [place] [id number] [place] [address] 77790- 6392 March, [place] [address] 55556- 8020 March, El's esophageal ulceration K22.10 and Type 2 diabetes mellitus with hyperglycemia E11.65 [place] [id number] [place] [address] 15793- 5568 March, Panic disorder with agoraphobia F40.01 ; Chronic post- traumatic stress disorder (PTSD) F43.12 and Bipolar 2 disorder F31.81 [facility] [address] [address] 1991 March, Type 2 diabetes mellitus with hyperglycemia E11.65 [facility] [id number] [place] [address] 66150- 7082 March, [facility] [id number] [place] [address] 79541- 0554 March, Lumbago M54.5 [facility] [id number] [place] [address] 32931- 3502 March, [place] [id number] [place] [address] 30489- 6675 March, Irritable bowel syndrome with diarrhea K58.0 ; Primary insomnia F51.01 ; Type 2 diabetes mellitus with hyperglycemia E11.65 and 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 [place] [id number] [place] [address] 96429- 5307 March, [facility] [id number] [place] [address] 33139- 1222 Jan, [facility] [id number] [place] [address] 83687- 8315 Jan, [facility] [address], [place] [address]- 3211 Jan, [facility] [id number] [place] [address] 85295- 7316 Jan, [facility] [id number] [place] [address] 69586- 2641 Jan, Dizziness R42 [facility] [id number] [place] [address] 72676- 7108 Jan, Bipolar affective disorder, currently depressed, mild F31.31 ; Panic disorder with agoraphobia F40.01 and Chronic post-traumatic stress disorder (PTSD) F43.12 [place] [id number] [place] [address] 76160- 0470 17 Jan, 2018 Dizziness R42 [place] [address] 02700- 8879 11 Jan, 2018 Chest pain, unspecified type R07.9 ; Exertional dyspnea R06.09 ; Hypertension, unspecified type I10 and Hyperlipidemia, unspecified hyperlipidemia type E78.5 [place] [address] 56105- 3613 Jan, [place] [address] 54338- 4342 Jan, Lumbago M54.5 [place] [address] 93467- 0711 04 Jan, 2018 El's esophageal ulceration K22.10 ; Blister (nonthermal ) of oral cavity, initial encounter S00.522A ; Local infection of the skin and subcutaneous tissue, unspecified L08.9 ; Type 2 diabetes mellitus with hyperglycemia E11.65 ; skilled nursing current use of insulin Z79.4 and Stress incontinence N39.3 [place] [address] 11536- 7567 27 Dec, 2017 [place] [id number] [place] [address] 01943- 7413 27 Dec, 2017 [place] [id number] [place] [address] 87015- 7280 Dec, [facility] [id number] [place] [address] [id number] 16 Dec, 2017 Dental examination Z01.20 [place] [id number] [place] [address] 19817- 6727 15 Dec, 2017 Acute pain of right knee M25.561 [place] [id number] [place] [address] 96945- 2614 14 Dec, 2017 [place] [address] 95729- 9454 Dec, [facility] [id number] [place] [address] 02411- 1533 14 Dec, 2017 Lumbago M54.5 ; Acute pain of right knee M25.561 and Seasonal allergic rhinitis due to other allergic trigger J30.89 [facility] [address] [place] [address] 03669- 7996 Dec, Type 2 diabetes mellitus with hyperglycemia E11.65 [facility] [id number] [place] [address] 05796- 5903 Dec, [facility] [id number] [place] [address] 81358- 9889 Dec, [place] [id number] [place] [address] 91709- 8649 23 Dec, 2017 [place] [id number] [place] [address] 57103- 3940 15 Dec, 2017 [facility] [id number] [place] [address] 16782- 4874 Dec, Chronic post-traumatic stress disorder (PTSD) F43.12 and Panic disorder with agoraphobia F40.01 [facility] [id number] [place] [address] 76552- 3895 13 Dec, 2017 Low back pain M54.5 [facility] [id number] [place] [address] 39709- 2498 12 Dec, 2017 Type 2 diabetes mellitus with hyperglycemia E11.65 ; skilled nursing current use of insulin Z79.4 ; Low back pain M54.5 ; Other chronic pain G89.29 and Encounter for therapeutic drug level monitoring Z51.81 [place] [id number] [place] [address] 90358- 7840 09 Dec, 2017 Coughing R05 [facility] [id number] [place] [address] 14348- 1788 Dec, [facility] [id number] [address] 07 Dec, 2017 Dental examination Z01.20 [place] [id number] [place] [address] 85062- 2361 Nov, Type 2 diabetes mellitus without complications E11.9 and Encounter for therapeutic drug level monitoring Z51.81 [place] [id number] [place] [address] 86793- 4222 Nov, [place] [id number] [place] [address] 02113- 9086 Oct, Type 2 diabetes mellitus without complications E11.9 [place] [id number] [place] [address] 93533- 3994 Oct, Type 2 diabetes mellitus with hyperglycemia E11.65 [place] [id number] [place] [address] 69824- 0704 Aug, Type 2 diabetes mellitus without complications E11.9 [place] [id number] [place] [address] 43729- 0762 Aug, Type 2 diabetes mellitus without complications E11.9 ; Hypoglycemia E16.2 ; Lumbago M54.5 ; Stress incontinence of urine N39.3 and History of NC (myocardial infarction) I25.2 [place] [address], [place] [address]- 9950 Jun, [place] [address], [place] [address]- 7636 May, [place] [id number] [place] [address] 22867- 1603 Apr, Panic disorder with agoraphobia F40.01 [address] [id number] [place] [address] 84976- 8956 Apr, Panic disorder with agoraphobia F40.01 [place] [address], [place] [address]- 8619 Apr, [place] [address] [address]- 4432 March, Other chronic pain G89.29 [facility] [address], [place] [address]- 3533 March, [facility] [address], [place] [address]- 9993 March, [facility] [id number] [address]- 0801 March, [facility] [address], [place] [address]- 2319 March, [facility] [id number] [place] [address] 72319- 8912 March, Type 2 diabetes mellitus without complications E11.9 [place] [address], [place] [address]- 2046 March, Diarrhea, unspecified type R19.7 [facility] [address], [place] [address]- 6297 March, Bipolar 2 disorder F31.81 ; Chronic post-traumatic stress disorder (PTSD) F43.12 and Type 2 diabetes mellitus with hyperglycemia E11.65 [facility] [address], [place] [address]- 0317 March, [facility] [address], [place] [address]- 4548 March, [facility] [address], [place] [address]- 6943 March, Hypertension, benign I10 ; Type 2 diabetes mellitus with hyperglycemia E11.65 ; Hepatitis C B19.20 ; Gastritis and duodenitis K29.90 and Dysuria R30.0 [facility] [id number] [address]- 0223 March, Hypertension, benign I10 ; Type 2 diabetes mellitus with hyperglycemia E11.65 ; Hepatitis C B19.20 ; Gastritis and duodenitis K29.90 and Dysuria R30.0 [facility] [address] [place] [address] 02171- 8260 March, Panic disorder with agoraphobia F40.01 ; Chronic post- traumatic stress disorder (PTSD) F43.12 ; Epilepsy G40.909 and Bipolar I disorder with mood-congruent psychotic features F31.9 [facility] [id number] [place] [address] 41775- 2702 March, [facility] [id number] [place] [address] 03503- 0677 March, Type 2 diabetes mellitus with hyperglycemia E11.65 [facility] [id number] [place] [address] 18712- 5122 18 Jan, 2017 Bipolar I disorder with duy F31.10 [facility] [id number] [place] [address] 85448- 0576 17 Jan, 2017 Bipolar 2 disorder F31.81 ; Chronic post-traumatic stress disorder (PTSD) F43.12 and Type 2 diabetes mellitus with hyperglycemia E11.65 [facility] [id number] [place] [address] 61209- 8975 17 Jan, 2017 [facility] [id number] [place] [address] 09305- 6860 Jan, [facility] [id number] [place] [address] 71451- 6532 14 Jan, 2017 Panic disorder with agoraphobia F40.01 [facility] [id number] [place] [address] 85722- 0264 13 Jan, 2017 Panic disorder with agoraphobia F40.01 ; Bipolar I disorder with mood-congruent psychotic features F31.9 ; Chronic post-traumatic stress disorder (PTSD) F43.12 and Epilepsy G40.909 [facility] [id number] [place] [address] 74679- 1531 Jan, [facility] [id number] [place] [address] 36880- 1223 Jan, [facility] [address], [place] [address]- 9268 10 Jan, 2017 Type 2 diabetes mellitus without complications E11.9 and Hypoglycemia E16.2 [facility] [address], [place] [address]- 3397 07 Jan, 2017 Type 2 diabetes mellitus without complications E11.9 ; Primary insomnia F51.01 and Hypertension, benign I10 [facility] [address] [address]- 7423 06 Jan, 2017 [facility] [id number] [place] [address] [id number] Jan, [facility] [address], [place] [address]- 2974 31 Dec, 2016 Type 2 diabetes mellitus with hyperglycemia E11.65 [facility] [id number] [place] [address] 07113- 5209 Dec, [facility] [address] [address]- 9494 Dec, Bipolar 2 disorder F31.81 ; Panic disorder with agoraphobia F40.01 ; Chronic post-traumatic stress disorder (PTSD) F43.12 and Epilepsy G40.909 [facility] [address] [address]- 6497 Dec, [facility] [id number] [place] [address] 10244- 4620 Dec, [facility] [address], [place] [address]- 4852 Dec, Bipolar 2 disorder F31.81 ; Panic disorder with agoraphobia F40.01 ; Chronic post-traumatic stress disorder (PTSD) F43.12 and Epilepsy G40.909 [facility] [address] [address]- 8044 Dec, [facility] [id number] [place] [address] 57603- 6915 Dec, [facility] [id number] [place] [address] 07479- 3419 Dec, [facility] [address] 25301- 6254 Dec, Type 2 diabetes mellitus with hyperglycemia E11.65 ; 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 ; Vagina, candidiasis B37.3 and Other chronic pain G89.29 [facility] [id number] [place] [address] 15184- 9521 Nov, Panic disorder with agoraphobia F40.01 [place] [id number] [place] [address] 49868- 0948 Nov, [facility] [address] [address]- 5[address] Nov, [facility] [id number] [place] [address] [id number]- 0403 Nov, Hypoglycemia E16.2 [facility] [id number] [place] [address] 65824- 0468 Nov, [facility] [id number] [place] [address] [id number]- [phone] Nov, [facility] [id number] [place] [address] 70177- 4545 Nov, [place] [id number] [place] [address] 94996- 5427 Nov, Type 2 diabetes mellitus with hyperglycemia E11.65 and 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 [place] [id number] [place] [address] 10648- 2502 Nov, Panic disorder with agoraphobia F40.01 ; Bipolar 2 disorder F31.81 ; Chronic post-traumatic stress disorder (PTSD) F43.12 and Epilepsy G40.909 [place] [id number] [address] Nov, Panic disorder with agoraphobia F40.01 [place] [id number] [address] Oct, [place] [id number], [place] [address] Oct, [place] [address] [id number] [place] [address] 31071- 4425 Oct, Bipolar 2 disorder F31.81 ; Panic disorder with agoraphobia F40.01 and Mood disorder F39 [place] [address] [address] 7[address] Oct, Diabetes E11.9 ; Type 2 diabetes mellitus with hyperglycemia E11.65 and 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 [place] [id number] [place] [address] 50488- 5171 Oct, [facility] [id number] [place] [address] 94952- 7524 Sep, [facility] [id number] [place] [address] 96708- 2260 Sep, Bipolar 2 disorder F31.81 and Mood disorder F39 [facility] [id number] [place] [address] 41479- 1904 Sep, [place] [id number] [place] [address] 01419- 3382 Sep, Uncontrolled type 2 diabetes mellitus without complication, without long-term current use of insulin E11.65 [place] [id number] [place] [address] 28393- 5088 Sep, [facility] [id number] [place] [address] 20693- 8840 Sep, [facility] [id number] [place] [address] 15124- 8824 Sep, [place] [id number] [place] [address] 43597- 9944 Sep, [place] [id number] [place] [address] 91021- 7227 Sep, Bipolar 2 disorder F31.81 ; Chronic post-traumatic stress disorder (PTSD) F43.12 ; Panic disorder with agoraphobia F40.01 and Epilepsy G40.909 [place] [id number] [place] [address] 15579- 9376 11 Sep, 2016 Bipolar 2 disorder F31.81 ; PTSD (post-traumatic stress disorder) F43.10 and Panic disorder with agoraphobia F40.01 [place] [id number] [place] [address] 04589- 2784 Sep, [facility] [id number] [place] [address] 23905- 2557 Aug, History of seizures Z87.898 ; Panic disorder with agoraphobia F40.01 and Bipolar 2 disorder F31.81 [facility] [id number] [place] [address] 99500- 6254 Aug, [facility] [address] 36145- 0830 17 Aug, 2016 [facility] [id number] [place] [address] 94836- 5005 Aug, [facility] [address] 75691- 4573 Aug, [facility] [id number] [place] [address] 82558- 1608 Aug, [facility] [id number] [place] [address] 28283- 1053 Aug, [facility] [id number] [place] [address] 79552- 0007 Aug, Hypoglycemia E16.2 and Bilateral impacted cerumen H61.23 [facility] [id number] [place] [address] 85802- 6264 Aug, [facility] [id number] [place] [address] 17385- 0622 Jul, [facility] [id number] [place] [address] 39261- 3017 21 Jul, 2016 [facility] [id number] [place] [address] 88677- 7122 15 Jul, 2016 Bipolar 2 disorder F31.81 ; Panic disorder with agoraphobia F40.01 ; PTSD (post-traumatic stress disorder) F43.10 and Epilepsy G40.909 [facility] [id number] [place] [address] 18897- 3797 Jul, [facility] [id number] [place] [address] 61688- 2235 Jul, Type 2 diabetes mellitus without complications E11.9 and Coughing R05 [facility] [id number] [place] [address] 13780- 8737 Jul, [facility] [id number] [place] [address] 91752- 9790 Jun, [facility] [id number] [place] [address] 62736- 5646 Jun, Bipolar 2 disorder F31.81 ; PTSD (post-traumatic stress disorder) F43.10 and Panic disorder with agoraphobia F40.01 [place] [id number] [place] [address] 61515- 5859 Jun, [place] [id number] [place] [address] 68919- 3504 Jun, [facility] [id number] [place] [address] 83289- 1387 Jun, [place] [id number] [place] [address] 27177- 0129 Jun, Type 2 diabetes mellitus without complications E11.9 and COPD (chronic obstructive pulmonary disease) J44.9 [facility] [id number] [place] [address] [id number] May, Dental examination Z01.20 and Dental caries K02.9 [place] [id number] [place] [address] 12994- 8045 May, Bipolar 2 disorder F31.81 ; PTSD (post-traumatic stress disorder) F43.10 and Panic disorder with agoraphobia F40.01 [facility] [id number] [place] [address] 26626- 2164 May, Lumbago with sciatica, right side M54.41 ; Other chronic pain G89.29 and Uncontrolled type 2 diabetes mellitus without complication, without long-term current use of insulin E11.65 [place] [id number] [place] [address] 11206- 1153 May, Chronic bronchitis, unspecified chronic bronchitis type J42 [place] [id number] [place] [address] 96413- 7511 May, [place] [id number] [place] [address] 20687- 9861 May, [place] [id number] [place] [address] 73111- 5069 May, Chest pain, unspecified type R07.9 ; Tobacco use Z72.0 ; Type 2 diabetes mellitus without complications E11.9 ; Essential hypertension I10 ; Hyperlipidemia, unspecified hyperlipidemia type E78.5 ; Obesity (BMI 30- 39.9) E66.9 ; History of hypothyroidism Z86.39 ; Chronic obstructive pulmonary disease, unspecified COPD type J44.9 ; Anxiety F41.9 ; Bilateral claudication of lower limb I73.9 and Bipolar 2 disorder F31.81 [place] [id number] [place] [address] 69106- 9627 May, Bipolar 2 disorder F31.81 ; Panic disorder with agoraphobia F40.01 and Tobacco abuse Z72.0 [place] [id number] [place] [address] 77486- 0531 Apr, [place] [id number] [place] [address] 25329- 4309 Apr, [place] [id number] [place] [address] 79024- 7403 Apr, [place] [id number] [place] [address] 45577- 9301 Apr, Bipolar 2 disorder F31.81 ; Panic disorder with agoraphobia F40.01 and PTSD (post-traumatic stress disorder) F43.10 [place] [id number] [place] [address] 43895- 8060 Apr, Chronic bronchitis, unspecified chronic bronchitis type J42 ; Cervical neuritis M54.12 and Thoracic neuritis M54.14 [place] [address] 52684- 9125 15 Apr, 2016 [place] [address] 38490- 4468 15 Apr, 2016 Cervicalgia M54.2 [place] [address] 45740- 1338 14 Apr, 2016 Bipolar 2 disorder F31.81 ; Panic disorder with agoraphobia F40.01 and PTSD (post-traumatic stress disorder) F43.10 [facility] [place] [address] 72998 -2079 13 Apr, 2016 [facility] [place] [address] 00425 -2168 09 Apr, 2016 Cough R05 and Tobacco dependence F17.200 [place] [address] 03817- 3635 06 Apr, 2016 [place] [address] 20357- 5284 Apr, [place] [address] 33032- 8122 March, Bipolar 2 disorder F31.81 ; Panic disorder with agoraphobia F40.01 and Generalized anxiety disorder F41.1 [place] [address] 06786- 3673 March, Closed displaced fracture of fifth metatarsal bone of right foot with routine healing, subsequent encounter S92.351D [place] [address] 86651- 5479 March, Bronchitis J40 [place] [address] 44978- 9581 March, [place] [address] 70591- 2374 March, [place] [id number] [place] [address] 68046- 0256 March, Foot pain, right M79.671 ; Cervicalgia M54.2 and 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 mellitus without complication, unspecified retirement insulin use status E11.9 [place] [id number] [place] [address] 08146- 3454 March, Fracture of fifth metatarsal bone of right foot S92.351A [place] [id number] [place] [address] 40696- 6897 March, [place] [address] 07426- 6908 Jan, Fracture of fifth metatarsal bone of right foot S92.351A [place] [id number] [place] [address] 50312- 3960 Jan, Bipolar 2 disorder F31.81 ; PTSD (post-traumatic stress disorder) F43.10 ; Panic disorder with agoraphobia F40.01 and Epilepsy G40.909 [place] [id number] [place] [address] 27754- 3855 Jan, History of NC (myocardial infarction) I25.2 and History of high cholesterol Z86.39 [place] [id number] [place] [address] 26312- 5623 Jan, Bipolar 2 disorder F31.81 ; Panic disorder with agoraphobia F40.01 ; Tobacco abuse Z72.0 and PTSD (post-traumatic stress disorder) F43.10 [place] [id number] [place] [address] 93060- 5572 Jan, Fracture of fifth metatarsal bone of right foot S92.351A [place] [id number] [place] [address] 91427- 4199 Jan, [place] [id number] [place] [address] 39953- 9522 Jan, History of high cholesterol Z86.39 [place] [id number] [place] [address] 99899- 9911 Jan, History of NC (myocardial infarction) I25.2 [facility] [id number] [place] [address] 03650- 7029 Jan, [place] [address] 37499- 5356 Dec, Back pain M54.9 ; Diabetes E11.9 ; Right knee pain M25.561 and Chest pain R07.9 [place] [address] 16445- 1474 Dec, [place] [address] 85202- 7680 Dec, [place] [address] 77150- 6735 Dec, Cervicalgia M54.2 [place] [id number] [place] [address] 33128- 3739 Dec, Bipolar 2 disorder F31.81 ; PTSD (post-traumatic stress disorder) F43.10 ; Panic disorder with agoraphobia F40.01 and Epilepsy G40.909 [place] [id number] [place] [address] 59184- 2101 Dec, Bipolar 2 disorder F31.81 ; PTSD (post-traumatic stress disorder) F43.10 and Panic disorder with agoraphobia F40.01 [place] [id number] [place] [address] 35899- 3356 Dec, Diabetes E11.9 [place] [address] 14744- 8756 Dec, [place] [id number] [place] [address] 67687- 0470 Dec, Other chronic pain G89.29 ; Hepatitis C B19.20 and History of seizures Z87.898 [facility] [id number] [place] [address] 84270- 0323 Dec, [facility] [id number] [place] [address] 76893- 6809 Dec, Bipolar 2 disorder F31.81 and Other chronic pain G89.29 [facility] [id number] [place] [address] 37463- 3412 Dec, Cervicalgia M54.2 and Diabetes E11.9 [facility] [id number] [place] [address] 19737- 0545 Dec, [facility] [address] 26132- 5801 Dec, [facility] [id number] [place] [address] 58062- 2753 Dec, [facility] [id number] [place] [address] 70617- 0992 Dec, [facility] [id number] [place] [address] 74893- 1071 Dec, Type 2 diabetes mellitus without complications E11.9 [facility] [id number] [place] [address] 03280- 7072 10 Dec, 2015 [facility] [id number] [place] [address] 37614- 5024 Dec, History of seizures Z87.898 and Hepatitis C B19.20 [facility] [id number] [place] [address] 83725- 5426 08 Dec, 2015 Hepatitis C B19.20 [facility] [id number] [place] [address] 56069- 0121 Dec, [facility] [id number] [place] [address] 59404- 4368 Dec, Cervicalgia M54.2 ; COPD (chronic obstructive pulmonary disease) J44.9 and Hepatitis C B19.20 [place] [id number] [place] [address] 51514- 3623 Dec, Bipolar 2 disorder F31.81 ; History of hypertension Z86.79 ; History of anxiety Z86.59 ; Panic disorder with agoraphobia F40.01 and Epilepsy G40.909 [place] [address] 01806- 3887 Nov, [place] [address] 11837- 5142 Nov, [address] 39731- 8399 Nov, History of seizures Z87.898 ; OAB (overactive bladder) N32.81 ; Lumbago M54.5 ; Other chronic pain G89.29 ; Cervicalgia M54.2 ; Tobacco abuse Z72.0 ; Tobacco abuse counseling Z71.6 and Impaired fasting glucose R73.01 [place] [id number] [place] [address] 69374- 2345 Nov, Bipolar 2 disorder F31.81 ; PTSD (post-traumatic stress disorder) F43.10 ; History of anxiety Z86.59 ; History of COPD Z87.09 ; Panic disorder with agoraphobia F40.01 and Moderate depressed bipolar I disorder F31.32 [place] [id number] [place] [address] 99008- 6445 12 Nov, 2015 PTSD (post-traumatic stress disorder) F43.10 [facility] [id number] [place] [address] [id number] 11 Nov, 2015 Dental examination Z01.20 and Dental caries K02.9 [place] [id number] [place] [address] 29949- 1365 08 Nov, 2015 History of hypertension Z86.79 ; History of hypothyroidism Z86.39 ; History of high cholesterol Z86.39 ; History of COPD Z87.09 and Overactive bladder N32.81 [place] [address] [place] [id number] [place] [address] 20275- 7521 Nov, Bipolar 2 disorder F31.81 and PTSD (post-traumatic stress disorder) F43.10 [place] [address] [place] [place] [id number] [place] [address] 37157- 2383 Nov, PTSD (post-traumatic stress disorder) F43.10 ; Panic disorder with agoraphobia F40.01 ; Epilepsy G40.909 and Moderate depressed bipolar I disorder F31.32 [place] [address] [place] [id number] [place] [address] 88237- 2299 Nov, [place] [address] 75895- 9305 Nov, [address] 32520- 7104 Oct, [address] 37095- 4433 Oct, Generalized anxiety disorder F41.1 ; Major depression, recurrent F33.9 and PTSD (post-traumatic stress disorder) F43.10 [place] [address] [place] [place] [id number] [place] [address] 45640- 4821 Oct, Elevated fasting glucose R73.01 [place] [id number] [place] [address] 24263- 4085 Oct, Elevated fasting glucose R73.01 [place] [address] [place] [id number] [place] [address] 25931- 9643 Oct, History of COPD Z87.[address] 93798- 8233 15 Oct, 2015 General medical exam Z00.00 ; History of hypertension Z86.79 ; History of hypothyroidism Z86.39 ; History of hepatitis Z86.19 ; History of high cholesterol Z86.39 and History of seizures Z87.898 [address] [place] [address]- 4940 10 Oct, 2015 General medical exam Z00.00 ; History of hypertension Z86.79 ; History of hypothyroidism Z86.39 ; Bipolar 2 disorder F31.81 ; PTSD ( post-traumatic stress disorder) F43.10 ; History of hepatitis Z86.19 ; History of high cholesterol Z86.39 ; History of anxiety Z86.59 ; History of seizures Z87.898 ; History of NC (myocardial infarction) I25.2 and History of COPD Z87.09 [place] [address] [place] [place] [id number] [place] [address] [id number]- 5385 10 Oct, 2015 Generalized anxiety disorder F41.1 ; Depression F32.9 and PTSD (post-traumatic stress disorder) F43.10 [place] [address] [address]- 7329 14 Jan, 2015 [place] [address] [place] [id number] [place] [address] 88121- 6868 Jan, [place] [address] [address]- 2632 Jun, [facility] [address] [place] [id number] Jun, [place] [id number] [place] [address] 84748- 2647 May, [place] [address] [address]- 6778 May, [facility] [address] [place] [id number] May, [place] [address] [address]- 1401 May, [facility] [address] [place] [id number] May, [place] [address] [address]- 1642 May, IMMUNIZATIONS No Known Immunizations SOCIAL HISTORY Never Assessed REASON FOR VISIT Diabetic pens PLAN OF CARE VITAL SIGNS MEDICATIONS Medication Instructions Dosage Frequency Start Date End Date Duration Status Levemir 100 UNIT/ML Flex Pen Subcutaneous 2 times a day Inject 75 units 12h 14 Dec, 2017 30 days Active NovoLog 100 UNIT/ML Flex Pen DX E11.9 3 times a day before meals Inject 30 units Dec, 30 days Active RESULTS No Results PROCEDURES [...]
--- OUTSIDE RECORDS SUMMARY | 2019-01-26 07:26 | XMS REPORT ---
Author Author GERARDO KISER [facility] Address [address] [place] [address] Care Team Providers Care Lumber Racker Name Role Phone MARGI GERARDO Unavailable PROBLEMS Type Condition ICD9-CM Code [id number] Code Onset Dates Condition Status SNOMED Code Problem OAB (overactive bladder) N32.81 Active 638657718 Problem Epilepsy G40.909 Active 43234089 Problem Cervicalgia M54.2 Active 80922387 Problem Other chronic pain G89.29 Active 37658661 Problem Tobacco abuse Z72.0 Active 00088936 Problem Lumbago M54.5 Active 926333473 Problem Hepatitis C B19.20 Active 42958568 Problem COPD (chronic obstructive pulmonary disease) J44.9 Active 79365935 Problem Diabetes E11.9 Active 07184091 Problem Bipolar I disorder with duy F31.10 Active 16916481 Problem Type 2 diabetes mellitus without complications E11.9 Active 229956956 Problem Stress incontinence of urine N39.3 Active 58419576 Problem Bilateral claudication of lower limb I73.9 Active 890083903 Problem Seasonal allergic rhinitis due to other allergic trigger J30.89 Active 136443154 Problem Hyperlipidemia, unspecified hyperlipidemia type E78.5 Active 42867077 Problem Hypertension, unspecified type I10 Active 26205648 Problem Chronic tension-type headache, not intractable G44.229 Active 218484812 Problem 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 mellitus without complication, without long -term current use of insulin E11.9 Active 180006380 Problem Type 2 diabetes mellitus with hyperglycemia E11.65 Active 501855872 Problem Chronic post-traumatic stress disorder (PTSD) F43.12 Active 816330623 Problem History of hypothyroidism Z86.39 Active 871623394 Problem Hypoglycemia E16.2 Active 904568149 Problem El's esophageal ulceration K22.10 Active 978164894 Problem Bipolar affective disorder, currently depressed, mild F31.31 Active 757184686 Problem Irritable bowel syndrome with diarrhea K58.0 Active 484053784 Problem Stress incontinence N39.3 Active 03835963 Problem History of hypertension Z86.79 Active 371793543 Problem Uncontrolled type 2 diabetes mellitus without complication, without long-term current use of insulin E11.65 Active 405443564 Problem Panic disorder with agoraphobia F40.01 Active 96579387 Problem Type 2 diabetes mellitus with hyperglycemia E11.65 Active 310613198 Problem History of seizures Z87.898 Active 671886124 Problem assisted current use of insulin Z79.4 Active 853333623 Problem History of MT (myocardial infarction) I25.2 Active 141351723 Problem Mood disorder F39 Active 20366545 Problem Bipolar 2 disorder F31.81 Active 63526524 Problem Gastritis and duodenitis K29.90 Active 924964323 Problem History of high cholesterol Z86.39 Active 115603295 Problem Bipolar I disorder with mood-congruent psychotic features F31.9 Active 233113212 Problem Hypertension, benign I10 Active 44896239 Problem Primary insomnia F51.01 Active 2916618 ALLERGIES No Information ENCOUNTERS Encounter Location Date Diagnosis [facility] [id number] [place] [address] 65611- 8009 Nov, [facility] [id number] [place] [address] 39559- 4925 Jul, [facility] [id number] [place] [address] 09060- 3820 Jul, Bipolar 2 disorder F31.81 ; Panic disorder with agoraphobia F40.01 and Chronic post-traumatic stress disorder (PTSD) F43.12 [facility] [id number] [place] [address] 02900- 4643 Jun, [facility] [id number] [place] [address] 80535- 3441 Jun, [facility] [id number] [place] [address] 04402- 3047 Jun, Lumbago M54.5 [facility] [id number] [place] [address] 26149- 3268 Jun, Type 2 diabetes mellitus with hyperglycemia E11.65 [facility] [address], [place] [address] 3702 Jun, [facility] [id number] [place] [address] 52332- 3826 Jun, Type 2 diabetes mellitus with hyperglycemia E11.65 ; El 's esophageal ulceration K22.10 and Lumbago M54.5 [facility] [address] [place] [address] 01657- 9684 Jun, Type 2 diabetes mellitus with hyperglycemia E11.65 [facility] [address] [address] 9053 Jun, [facility] [id number] [place] [address] 19992- 3080 Jun, [facility] [id number] [place] [address] 01343- 2160 Jun, Bipolar affective disorder, currently depressed, mild F31.31 ; Chronic post-traumatic stress disorder (PTSD) F43.12 and Panic disorder with agoraphobia F40.01 [facility] [id number] [place] [address] 99951- 3874 Jun, [facility] [id number] [place] [address] 48995- 9505 Jun, [facility] [address] [address] 5497 Jun, Type 2 diabetes mellitus with hyperglycemia E11.65 [facility] [address] [address] 8026 Jun, Uncontrolled type 2 diabetes mellitus with hyperglycemia E11.65 [facility] [address] [address]- 3190 Jun, [facility] [address] [address]- 5128 May, Lumbago M54.5 [address] [address] May, [facility] [address] [place] [address]- 7253 May, [facility] [address], [place] [address]- 1361 May, [facility] [address], [place] [address]- 4379 May, [facility] [address], [place] [address]- 5302 May, [facility] [address] [address]- 7987 May, [facility] [address], [place] [address]- 1382 May, [facility] [address] [address]- 7677 May, Lumbago M54.5 [facility] [address], [place] [address] 0300 May, [facility] [address] [address] [address] of the chest R93.8 [facility] [address], [place] [address]- 4782 Apr, Bipolar 2 disorder F31.81 ; Chronic post-traumatic stress disorder (PTSD) F43.12 and Panic disorder with agoraphobia F40.01 [facility] [address], [place] [address] [address], [address] of the chest R93.8 [facility] [address], [place] [address]- [address] Apr, [address] of the chest R93.8 [facility] [address], [place] [address]- 2224 Apr, [facility] [id number] [place] [address] 27655- 9485 Apr, Type 2 diabetes mellitus with hyperglycemia E11.65 [facility] [id number] [place] [address] 67783- 9520 Apr, 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 mellitus without complication, without long-term current use of insulin E11.9 ; Watery eyes H04.203 ; Low back pain M54.5 ; Other chronic pain G89.29 ; Chronic tension-type headache, not intractable G44.229 ; Uncontrolled type 2 diabetes mellitus without complication , without long-term current use of insulin E11.65 and Bronchitis J40 [facility] [address] 63885- 8046 Apr, [facility] [id number] [place] [address] 83615- 8877 Apr, Lumbago M54.5 [facility] [address] 57113- 1318 March, [facility] [id number] [place] [address] 64800 -8213 March, Cough R05 ; Pneumonia due to infectious organism, unspecified laterality, unspecified part of lung J18.9 and Non-intractable vomiting with nausea, unspecified vomiting type R11.2 [facility] [id number] [place] [address] 40471- 0144 March, Bronchitis J40 [facility] [id number] [place] [address] 68841- 4919 March, [facility] [address] 28093- 9967 March, El's esophageal ulceration K22.10 and Type 2 diabetes mellitus with hyperglycemia E11.65 [facility] [id number] [place] [address] 08376- 8471 March, Panic disorder with agoraphobia F40.01 ; Chronic post- traumatic stress disorder (PTSD) F43.12 and Bipolar 2 disorder F31.81 [facility] [address], [place] [address]- 2183 March, Type 2 diabetes mellitus with hyperglycemia E11.65 [facility] [id number] [place] [address] 08863- 2228 March, [facility] [id number] [place] [address] 51454- 2712 March, Lumbago M54.5 [facility] [id number] [place] [address] 83005- 8006 March, [facility] [id number] [place] [address] 47847- 6529 March, Irritable bowel syndrome with diarrhea K58.0 ; Primary insomnia F51.01 ; Type 2 diabetes mellitus with hyperglycemia E11.65 and 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 project 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.4 [facility] [id number] [place] [address] 17702- 4205 March, [facility] [id number] [place] [address] 43804- 5504 Jan, [facility] [id number] [place] [address] 67744- 3107 Jan, [facility] [address], [place] [address]- 5588 Jan, [facility] [id number] [place] [address] 28878- 4842 Jan, [facility] [id number] [place] [address] 80970- 1029 Jan, Dizziness R42 [facility] [id number] [place] [address] 60712- 6700 Jan, Bipolar affective disorder, currently depressed, mild F31.31 ; Panic disorder with agoraphobia F40.01 and Chronic post-traumatic stress disorder (PTSD) F43.12 [facility] [id number] [place] [address] 98075- 9258 17 Jan, 2018 Dizziness R42 [facility] [address] 23201- 1123 11 Jan, 2018 Chest pain, unspecified type R07.9 ; Exertional dyspnea R06.09 ; Hypertension, unspecified type I10 and Hyperlipidemia, unspecified hyperlipidemia type E78.5 [facility] [address] 06461- 0271 Jan, [facility] [address] 85053- 3677 Jan, Lumbago M54.5 [facility] [address] 54587- 7250 04 Jan, 2018 El's esophageal ulceration K22.10 ; Blister (nonthermal ) of oral cavity, initial encounter S00.522A ; Local infection of the skin and subcutaneous tissue, unspecified L08.9 ; Type 2 diabetes mellitus with hyperglycemia E11.65 ; assisted current use of insulin Z79.4 and Stress incontinence N39.3 [facility] [address] 58832- 2097 27 Dec, 2017 [facility] [id number] [place] [address] 97495- 1545 27 Dec, 2017 [facility] [id number] [place] [address] 77629- 8465 Dec, [facility] [id number] [place] [address] [id number] 16 Dec, 2017 Dental examination Z01.20 [facility] [id number] [place] [address] 25725- 3726 15 Dec, 2017 Acute pain of right knee M25.561 [facility] [id number] [place] [address] 08915- 7257 14 Dec, 2017 [facility] [address] 39029- 7492 Dec, [facility] [id number] [place] [address] 74900- 2877 14 Dec, 2017 Lumbago M54.5 ; Acute pain of right knee M25.561 and Seasonal allergic rhinitis due to other allergic trigger J30.89 [facility] [id number] [place] [address] 10600- 3900 Dec, Type 2 diabetes mellitus with hyperglycemia E11.65 [facility] [id number] [place] [address] 32573- 5839 Dec, [facility] [id number] [place] [address] 27341- 5484 Dec, [facility] [id number] [place] [address] 36109- 6967 23 Dec, 2017 [facility] [id number] [place] [address] 92782- 5981 15 Dec, 2017 [facility] [id number] [place] [address] 53707- 4598 Dec, Chronic post-traumatic stress disorder (PTSD) F43.12 and Panic disorder with agoraphobia F40.01 [facility] [id number] [place] [address] 77716- 6371 13 Dec, 2017 Low back pain M54.5 [facility] [id number] [place] [address] 81462- 1225 12 Dec, 2017 Type 2 diabetes mellitus with hyperglycemia E11.65 ; assisted current use of insulin Z79.4 ; Low back pain M54.5 ; Other chronic pain G89.29 and Encounter for therapeutic drug level monitoring Z51.81 [facility] [id number] [place] [address] 29781- 1810 09 Dec, 2017 Coughing R05 [facility] [id number] [place] [address] 81674- 9043 Dec, [facility] [id number] [address] 07 Dec, 2017 Dental examination Z01.20 [facility] [id number] [place] [address] 27564- 9932 Nov, Type 2 diabetes mellitus without complications E11.9 and Encounter for therapeutic drug level monitoring Z51.81 [facility] [id number] [place] [address] 69364- 8376 Nov, [facility] [id number] [place] [address] 79368- 3581 Oct, Type 2 diabetes mellitus without complications E11.9 [facility] [id number] [place] [address] 99609- 4185 Oct, Type 2 diabetes mellitus with hyperglycemia E11.65 [facility] [id number] [place] [address] 76401- 3816 Aug, Type 2 diabetes mellitus without complications E11.9 [facility] [id number] [place] [address] 30259- 9769 Aug, Type 2 diabetes mellitus without complications E11.9 ; Hypoglycemia E16.2 ; Lumbago M54.5 ; Stress incontinence of urine N39.3 and History of MT (myocardial infarction) I25.2 [facility] [address], [place] [address]- 2776 Jun, [facility] [address], [place] [address]- 6855 May, [facility] [id number] [place] [address] 29234- 2798 Apr, Panic disorder with agoraphobia F40.01 [address] [id number] [place] [address] 23290- 6666 Apr, Panic disorder with agoraphobia F40.01 [facility] [address], [place] [address]- 5823 Apr, [facility] [id number] [place] [address]- 8614 March, Other chronic pain G89.29 [facility] [address], [place] [address]- 6425 March, [facility] [address], [place] [address]- 0673 March, [facility] [id number] [place] [address]- 1654 March, [facility] [address], [place] [address]- 5961 March, [facility] [id number] [place] [address] 76120- 8383 March, Type 2 diabetes mellitus without complications E11.9 [facility] [address], [place] [address]- 6945 March, Diarrhea, unspecified type R19.7 [facility] [address], [place] [address]- 0962 March, Bipolar 2 disorder F31.81 ; Chronic post-traumatic stress disorder (PTSD) F43.12 and Type 2 diabetes mellitus with hyperglycemia E11.65 [facility] [address], [place] [address]- 7570 March, [facility] [address], [place] [address]- 1819 March, [facility] [address], [place] [address]- 5575 March, Hypertension, benign I10 ; Type 2 diabetes mellitus with hyperglycemia E11.65 ; Hepatitis C B19.20 ; Gastritis and duodenitis K29.90 and Dysuria R30.0 [facility] [id number] [address]- 2959 March, Hypertension, benign I10 ; Type 2 diabetes mellitus with hyperglycemia E11.65 ; Hepatitis C B19.20 ; Gastritis and duodenitis K29.90 and Dysuria R30.0 [facility] [address] [place] [address] 50192- 0475 March, Panic disorder with agoraphobia F40.01 ; Chronic post- traumatic stress disorder (PTSD) F43.12 ; Epilepsy G40.909 and Bipolar I disorder with mood-congruent psychotic features F31.9 [facility] [id number] [place] [address] 37653- 5578 March, [facility] [id number] [place] [address] 68641- 1447 March, Type 2 diabetes mellitus with hyperglycemia E11.65 [facility] [id number] [place] [address] 18051- 4950 18 Jan, 2017 Bipolar I disorder with duy F31.10 [facility] [id number] [place] [address] 40501- 1264 17 Jan, 2017 Bipolar 2 disorder F31.81 ; Chronic post-traumatic stress disorder (PTSD) F43.12 and Type 2 diabetes mellitus with hyperglycemia E11.65 [facility] [id number] [place] [address] 10066- 2842 17 Jan, 2017 [facility] [id number] [place] [address] 36578- 5595 Jan, [facility] [id number] [place] [address] 93719- 0694 14 Jan, 2017 Panic disorder with agoraphobia F40.01 [facility] [id number] [place] [address] 28430- 8405 13 Jan, 2017 Panic disorder with agoraphobia F40.01 ; Bipolar I disorder with mood-congruent psychotic features F31.9 ; Chronic post-traumatic stress disorder (PTSD) F43.12 and Epilepsy G40.909 [facility] [id number] [place] [address] 05872- 6228 Jan, [facility] [id number] [place] [address] 62860- 0175 Jan, [facility] [address], [place] [address]- 8256 10 Jan, 2017 Type 2 diabetes mellitus without complications E11.9 and Hypoglycemia E16.2 [facility] [address], [place] [address]- 9868 07 Jan, 2017 Type 2 diabetes mellitus without complications E11.9 ; Primary insomnia F51.01 and Hypertension, benign I10 [facility] [id number] [address]- 2569 06 Jan, 2017 [facility] [id number] [place] [address] [id number] Jan, [facility] [id number] [address]- 9963 31 Dec, 2016 Type 2 diabetes mellitus with hyperglycemia E11.65 [facility] [id number] [place] [address] 90129- 0521 Dec, [facility] [address], [place] [address]- 9171 Dec, Bipolar 2 disorder F31.81 ; Panic disorder with agoraphobia F40.01 ; Chronic post-traumatic stress disorder (PTSD) F43.12 and Epilepsy G40.909 [facility] [address], [place] [address]- 9260 Dec, [facility] [id number] [place] [address] 03616- 3744 Dec, [facility] [address], [place] [address]- 2145 Dec, Bipolar 2 disorder F31.81 ; Panic disorder with agoraphobia F40.01 ; Chronic post-traumatic stress disorder (PTSD) F43.12 and Epilepsy G40.909 [facility] [address], [place] [address]- 7927 Dec, [facility] [id number] [place] [address] 85712- 9383 Dec, [facility] [id number] [place] [address] 56593- 0993 Dec, [facility] [address] 90223- 8544 Dec, Type 2 diabetes mellitus with hyperglycemia E11.65 ; 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 project 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.4 and Lumbago M54.5 [facility] [address] 35819- 5936 Dec, [facility] [address] 85286- 3263 Dec, [facility] [address] 70325- 6003 Dec, [facility] [address] 30170 -1104 Dec, Pain of left leg M79.605 and Pain in right leg M79.604 [facility] [id number] [place] [address] 76999- 4062 Dec, [facility] [id number] [place] [address] 52289- 9993 Dec, Type 2 diabetes mellitus with hyperglycemia E11.65 [facility] [id number] [place] [address] 48605- 0010 Dec, [facility] [id number] [place] [address] 25831- 2257 Dec, Type 2 diabetes mellitus with hyperglycemia E11.65 ; 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 project 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.4 ; Vagina, candidiasis B37.3 and Other chronic pain G89.29 [facility] [id number] [place] [address] 51809- 0773 Nov, Panic disorder with agoraphobia F40.01 [facility] [id number] [place] [address] 47288- 7138 Nov, [facility] [address], [place] [address]- 8985 Nov, [facility] [id number] [place] [address] 16523- 1530 Nov, Hypoglycemia E16.2 [facility] [id number] [place] [address] 13515- 7591 Nov, [facility] [id number] [place] [address] 40691- 6034 Nov, [facility] [id number] [place] [address] 00381- 0512 Nov, [facility] [id number] [place] [address] 00596- 5721 Nov, Type 2 diabetes mellitus with hyperglycemia E11.65 and 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 project 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.4 [facility] [id number] [place] [address] 84361- 8159 Nov, Panic disorder with agoraphobia F40.01 ; Bipolar 2 disorder F31.81 ; Chronic post-traumatic stress disorder (PTSD) F43.12 and Epilepsy G40.909 [facility] [address], [place] [address]- 6769 Nov, Panic disorder with agoraphobia F40.01 [facility] [address], [place] [address]- 5899 Oct, [facility] [address], [place] [address]- 2806 Oct, [facility] [id number] [place] [address] 35954- 8953 Oct, Bipolar 2 disorder F31.81 ; Panic disorder with agoraphobia F40.01 and Mood disorder F39 [facility] [address], [place] [address]- 9893 Oct, Diabetes E11.9 ; Type 2 diabetes mellitus with hyperglycemia E11.65 and 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 project 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.4 [place] [id number] [place] [address] 755[address]- 9039 Oct, [facility] [id number] [place] [address] 20129- 0447 Sep, [facility] [id number] [place] [address] 32785- 6430 Sep, Bipolar 2 disorder F31.81 and Mood disorder F39 [facility] [id number] [place] [address] 60869- 9243 Sep, [place] [id number] [place] [address] 24803- 4085 Sep, Uncontrolled type 2 diabetes mellitus without complication, without long-term current use of insulin E11.65 [place] [id number] [place] [address] [id number]- 9729 Sep, [facility] [id number] [place] [address] [id number]- [phone] Sep, [facility] [id number] [place] [address] 37268- 1119 Sep, [place] [address] [place] [id number] [place] [address] 12179- 6111 Sep, [place] [address] [id number] [place] [address] 04792- 7228 Sep, Bipolar 2 disorder F31.81 ; Chronic post-traumatic stress disorder (PTSD) F43.12 ; Panic disorder with agoraphobia F40.01 and Epilepsy G40.909 [place] [address] [place] [id number] [place] [address] 79632- 6941 11 Sep, 2016 Bipolar 2 disorder F31.81 ; PTSD (post-traumatic stress disorder) F43.10 and Panic disorder with agoraphobia F40.01 [place] [address] [id number] [place] [address] 90328- 7512 Sep, [facility] [id number] [place] [address] 08409- 8677 Aug, History of seizures Z87.898 ; Panic disorder with agoraphobia F40.01 and Bipolar 2 disorder F31.81 [facility] [address] [id number] [place] [address] 68572- 3388 Aug, [facility] [address] 77053- 2333 17 Aug, 2016 [facility] [address] [id number] [place] [address] 52043- 6497 Aug, [facility] [address] 05036- 7879 Aug, [facility] [id number] [place] [address] 60275- 3197 Aug, [facility] [id number] [place] [address] 41363- 6851 Aug, [facility] [id number] [place] [address] 24907- 6782 Aug, Hypoglycemia E16.2 and Bilateral impacted cerumen H61.23 [facility] [id number] [place] [address] 80708- 7567 Aug, [facility] [id number] [place] [address] 73159- 2331 Jul, [facility] [id number] [place] [address] 13709- 1957 21 Jul, 2016 [facility] [id number] [place] [address] 88545- 1494 15 Jul, 2016 Bipolar 2 disorder F31.81 ; Panic disorder with agoraphobia F40.01 ; PTSD (post-traumatic stress disorder) F43.10 and Epilepsy G40.909 [facility] [id number] [place] [address] 25308- 5885 Jul, [facility] [id number] [place] [address] 86678- 2706 Jul, Type 2 diabetes mellitus without complications E11.9 and Coughing R05 [facility] [id number] [place] [address] 63025- 4951 Jul, [facility] [id number] [place] [address] 44529- 0137 Jun, [facility] [id number] [place] [address] 31034- 7034 Jun, Bipolar 2 disorder F31.81 ; PTSD (post-traumatic stress disorder) F43.10 and Panic disorder with agoraphobia F40.01 [place] [id number] [place] [address] 69321- 3385 Jun, [place] [address] [id number] [place] [address] 72787- 2343 Jun, [facility] [id number] [place] [address] 00257- 4916 Jun, [place] [address] [id number] [place] [address] 03614- 7300 Jun, Type 2 diabetes mellitus without complications E11.9 and COPD (chronic obstructive pulmonary disease) J44.9 [facility] [id number] [place] [address] [id number] May, Dental examination Z01.20 and Dental caries K02.9 [place] [id number] [place] [address] 71604- 5432 May, Bipolar 2 disorder F31.81 ; PTSD (post-traumatic stress disorder) F43.10 and Panic disorder with agoraphobia F40.01 [facility] [id number] [place] [address] 41472- 6176 May, Lumbago with sciatica, right side M54.41 ; Other chronic pain G89.29 and Uncontrolled type 2 diabetes mellitus without complication, without long-term current use of insulin E11.65 [facility] [address] [place] [id number] [place] [address] 37643- 0576 May, Chronic bronchitis, unspecified chronic bronchitis type J42 [place] [id number] [place] [address] 46798- 1091 May, [facility] [address] [id number] [place] [address] 63515- 0499 May, [facility] [address] [place] [id number] [place] [address] 85820- 6210 May, Chest pain, unspecified type R07.9 ; Tobacco use Z72.0 ; Type 2 diabetes mellitus without complications E11.9 ; Essential hypertension I10 ; Hyperlipidemia, unspecified hyperlipidemia type E78.5 ; Obesity (BMI 30- 39.9) E66.9 ; History of hypothyroidism Z86.39 ; Chronic obstructive pulmonary disease, unspecified COPD type J44.9 ; Anxiety F41.9 ; Bilateral claudication of lower limb I73.9 and Bipolar 2 disorder F31.81 [facility] [id number] [place] [address] 73758- 5574 May, Bipolar 2 disorder F31.81 ; Panic disorder with agoraphobia F40.01 and Tobacco abuse Z72.0 [facility] [id number] [place] [address] 20098- 8686 Apr, [facility] [place] [id number] [place] [address] 66796- 5778 Apr, [facility] [place] [address] [id number] [place] [address] 26626- 4547 Apr, [place] [id number] [place] [address] 91080- 9394 Apr, Bipolar 2 disorder F31.81 ; Panic disorder with agoraphobia F40.01 and PTSD (post-traumatic stress disorder) F43.10 [facility] [id number] [place] [address] 83547- 3777 Apr, Chronic bronchitis, unspecified chronic bronchitis type J42 ; Cervical neuritis M54.12 and Thoracic neuritis M54.14 [place] [address] 40199- 6713 15 Apr, 2016 [place] [address] 92695- 4106 15 Apr, 2016 Cervicalgia M54.2 [place] [address] 45868- 2243 14 Apr, 2016 Bipolar 2 disorder F31.81 ; Panic disorder with agoraphobia F40.01 and PTSD (post-traumatic stress disorder) F43.10 [facility] [place] [address] 80486 -9174 13 Apr, 2016 [facility] [place] [address] 01110 -4164 09 Apr, 2016 Cough R05 and Tobacco dependence F17.200 [place] [address] 86556- 2141 06 Apr, 2016 [place] [address] 58004- 3695 Apr, [place] [address] 76426- 7895 March, Bipolar 2 disorder F31.81 ; Panic disorder with agoraphobia F40.01 and Generalized anxiety disorder F41.1 [place] [address] 12400- 7624 March, Closed displaced fracture of fifth metatarsal bone of right foot with routine healing, subsequent encounter S92.351D [place] [address] 12739- 6531 March, Bronchitis J40 [place] [address] 82205- 6514 March, [place] [address] 02397- 7759 March, [place] [id number] [place] [address] 03692- 2035 March, Foot pain, right M79.671 ; Cervicalgia M54.2 and 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 mellitus without complication, unspecified residential insulin use status E11.9 [facility] [address] [id number] [place] [address] 29149- 5791 March, Fracture of fifth metatarsal bone of right foot S92.351A [facility] [address] [id number] [place] [address] 70905- 3821 March, [place] [address] 27259- 6033 Jan, Fracture of fifth metatarsal bone of right foot S92.351A [facility] [place] [address] [place] [id number] [place] [address] 97698- 3717 Jan, Bipolar 2 disorder F31.81 ; PTSD (post-traumatic stress disorder) F43.10 ; Panic disorder with agoraphobia F40.01 and Epilepsy G40.909 [place] [address] [place] [id number] [place] [address] 58392- 1760 Jan, History of MT (myocardial infarction) I25.2 and History of high cholesterol Z86.39 [facility] [address] [id number] [place] [address] 14540- 9832 Jan, Bipolar 2 disorder F31.81 ; Panic disorder with agoraphobia F40.01 ; Tobacco abuse Z72.0 and PTSD (post-traumatic stress disorder) F43.10 [facility] [id number] [place] [address] 80216- 3862 Jan, Fracture of fifth metatarsal bone of right foot S92.351A [facility] [place] [address] [place] [id number] [place] [address] 82850- 7753 Jan, [facility] [place] [address] [address] [id number] [place] [address] 85317- 4865 Jan, History of high cholesterol Z86.39 [facility] [place] [address] [id number] [place] [address] 64345- 7502 Jan, History of MT (myocardial infarction) I25.2 [facility] [address] [id number] [place] [address] 34652- 1010 Jan, [place] [address] 52989- 9961 Dec, Back pain M54.9 ; Diabetes E11.9 ; Right knee pain M25.561 and Chest pain R07.9 [place] [address] 89387- 9407 Dec, [place] [address] 89087- 4876 Dec, [place] [address] 61121- 1713 Dec, Cervicalgia M54.2 [place] [address] [id number] [place] [address] 47857- 6790 Dec, Bipolar 2 disorder F31.81 ; PTSD (post-traumatic stress disorder) F43.10 ; Panic disorder with agoraphobia F40.01 and Epilepsy G40.909 [place] [id number] [place] [address] 05110- 4959 Dec, Bipolar 2 disorder F31.81 ; PTSD (post-traumatic stress disorder) F43.10 and Panic disorder with agoraphobia F40.01 [place] [id number] [place] [address] 25651- 7753 Dec, Diabetes E11.9 [place] [address] 35588- 9902 Dec, [facility] [address] [id number] [place] [address] 01279- 3824 Dec, Other chronic pain G89.29 ; Hepatitis C B19.20 and History of seizures Z87.898 [facility] [id number] [place] [address] 68577- 6853 Dec, [facility] [id number] [place] [address] 24459- 1156 Dec, Bipolar 2 disorder F31.81 and Other chronic pain G89.29 [facility] [id number] [place] [address] 08059- 5504 Dec, Cervicalgia M54.2 and Diabetes E11.9 [facility] [id number] [place] [address] 59034- 6844 Dec, [facility] [address] 05913- 5451 Dec, [facility] [id number] [place] [address] 08936- 9281 Dec, [facility] [id number] [place] [address] 30958- 7782 Dec, [facility] [id number] [place] [address] 30045- 0831 Dec, Type 2 diabetes mellitus without complications E11.9 [facility] [id number] [place] [address] 77355- 5315 10 Dec, 2015 [facility] [id number] [place] [address] 86591- 3508 Dec, History of seizures Z87.898 and Hepatitis C B19.20 [facility] [id number] [place] [address] 47149- 3730 08 Dec, 2015 Hepatitis C B19.20 [facility] [id number] [place] [address] 44398- 6942 Dec, [facility] [id number] [place] [address] 42599- 3025 Dec, Cervicalgia M54.2 ; COPD (chronic obstructive pulmonary disease) J44.9 and Hepatitis C B19.20 [place] [id number] [place] [address] 43288- 5861 Dec, Bipolar 2 disorder F31.81 ; History of hypertension Z86.79 ; History of anxiety Z86.59 ; Panic disorder with agoraphobia F40.01 and Epilepsy G40.909 [place] [address] 82686- 8699 Nov, [place] [address] 88605- 7436 Nov, [address] 20864- 7031 Nov, History of seizures Z87.898 ; OAB (overactive bladder) N32.81 ; Lumbago M54.5 ; Other chronic pain G89.29 ; Cervicalgia M54.2 ; Tobacco abuse Z72.0 ; Tobacco abuse counseling Z71.6 and Impaired fasting glucose R73.01 [place] [id number] [place] [address] 95234- 2414 Nov, Bipolar 2 disorder F31.81 ; PTSD (post-traumatic stress disorder) F43.10 ; History of anxiety Z86.59 ; History of COPD Z87.09 ; Panic disorder with agoraphobia F40.01 and Moderate depressed bipolar I disorder F31.32 [place] [id number] [place] [address] 95838- 6509 12 Nov, 2015 PTSD (post-traumatic stress disorder) F43.10 [facility] [address] [id number] [place] [address] [id number] 11 Nov, 2015 Dental examination Z01.20 and Dental caries K02.9 [place] [id number] [place] [address] 32969- 3121 08 Nov, 2015 History of hypertension Z86.79 ; History of hypothyroidism Z86.39 ; History of high cholesterol Z86.39 ; History of COPD Z87.09 and Overactive bladder N32.81 [place] [address] [id number] [place] [address] 40661- 3085 Nov, Bipolar 2 disorder F31.81 and PTSD (post-traumatic stress disorder) F43.10 [place] [address] [id number] [place] [address] 43969- 5179 Nov, PTSD (post-traumatic stress disorder) F43.10 ; Panic disorder with agoraphobia F40.01 ; Epilepsy G40.909 and Moderate depressed bipolar I disorder F31.32 [place] [address] [id number] [place] [address] 92150- 9328 Nov, [place] [address] 57206- 3497 Nov, [address] 01593- 9231 Oct, [address] 59699- 3077 Oct, Generalized anxiety disorder F41.1 ; Major depression, recurrent F33.9 and PTSD (post-traumatic stress disorder) F43.10 [place] [address] [id number] [place] [address] 63057- 0959 Oct, Elevated fasting glucose R73.01 [place] [id number] [place] [address] 47309- 3106 Oct, Elevated fasting glucose R73.01 [place] [address] [id number] [place] [address] 47542- 7638 Oct, History of COPD Z87.[address] 41939- 3485 15 Oct, 2015 General medical exam Z00.00 ; History of hypertension Z86.79 ; History of hypothyroidism Z86.39 ; History of hepatitis Z86.19 ; History of high cholesterol Z86.39 and History of seizures Z87.898 [address] [place] [address]- 1444 10 Oct, 2015 General medical exam Z00.00 ; History of hypertension Z86.79 ; History of hypothyroidism Z86.39 ; Bipolar 2 disorder F31.81 ; PTSD ( post-traumatic stress disorder) F43.10 ; History of hepatitis Z86.19 ; History of high cholesterol Z86.39 ; History of anxiety Z86.59 ; History of seizures Z87.898 ; History of MT (myocardial infarction) I25.2 and History of COPD Z87.09 [place] [address] [place] [id number] [place] [address] [id number]- 9992 10 Oct, 2015 Generalized anxiety disorder F41.1 ; Depression F32.9 and PTSD (post-traumatic stress disorder) F43.10 [place] [address] [address]- 1661 14 Jan, 2015 [place] [address] [place] [id number] [place] [address] 06999- 0289 Jan, [place] [address] [address]- 7369 Jun, [facility] [address] [place] [id number] Jun, [place] [id number] [place] [address] 04351- 0865 May, [place] [address] [address]- 3578 May, [facility] [address] [place] [id number] May, [place] [id number] [address]- 7281 May, [facility] [address] [place] [id number] May, [place] [id number] [place] [address] 74105- 7793 May, IMMUNIZATIONS No Known Immunizations SOCIAL HISTORY Never Assessed REASON FOR VISIT BS mgnt PLAN OF CARE VITAL SIGNS MEDICATIONS Unknown [...]
--- OUTSIDE RECORDS SUMMARY | 2019-01-26 07:27 | XMS REPORT ---
Author Author GERARDO KISER [facility] Address [address] [place] [address] Care Team Providers Care Auxiliary Operator Name Role Phone MARGI GERARDO Unavailable PROBLEMS Type Condition ICD9-CM Code YFP14-YP Code Onset Dates Condition Status SNOMED Code Problem OAB (overactive bladder) N32.81 Active 528387570 Problem Epilepsy G40.909 Active 35845203 Problem Cervicalgia M54.2 Active 84729894 Problem Other chronic pain G89.29 Active 25144708 Problem Tobacco abuse Z72.0 Active 57149348 Problem Lumbago M54.5 Active 116475848 Problem Hepatitis C B19.20 Active 79273224 Problem COPD (chronic obstructive pulmonary disease) J44.9 Active 81135432 Problem Diabetes E11.9 Active 66566953 Problem Bipolar I disorder with duy F31.10 Active 31436357 Problem Type 2 diabetes mellitus without complications E11.9 Active 288877567 Problem Stress incontinence of urine N39.3 Active 13339603 Problem Bilateral claudication of lower limb I73.9 Active 971873736 Problem Seasonal allergic rhinitis due to other allergic trigger J30.89 Active 786810812 Problem Hyperlipidemia, unspecified hyperlipidemia type E78.5 Active 62982057 Problem Hypertension, unspecified type I10 Active 24883697 Problem Chronic tension-type headache, not intractable G44.229 Active 193858487 Problem 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 mellitus without complication, without long -term current use of insulin E11.9 Active 474939743 Problem Type 2 diabetes mellitus with hyperglycemia E11.65 Active 534815898 Problem Chronic post-traumatic stress disorder (PTSD) F43.12 Active 669877508 Problem History of hypothyroidism Z86.39 Active 185030720 Problem Hypoglycemia E16.2 Active 017916885 Problem El's esophageal ulceration K22.10 Active 966955038 Problem Bipolar affective disorder, currently depressed, mild F31.31 Active 870409562 Problem Irritable bowel syndrome with diarrhea K58.0 Active 939097919 Problem Stress incontinence N39.3 Active 00408572 Problem History of hypertension Z86.79 Active 020705506 Problem Uncontrolled type 2 diabetes mellitus without complication, without long-term current use of insulin E11.65 Active 990401058 Problem Panic disorder with agoraphobia F40.01 Active 23279719 Problem Type 2 diabetes mellitus with hyperglycemia E11.65 Active 707946526 Problem History of seizures Z87.898 Active 471528595 Problem care home current use of insulin Z79.4 Active 916434320 Problem History of NE (myocardial infarction) I25.2 Active 036397088 Problem Mood disorder F39 Active 42985312 Problem Bipolar 2 disorder F31.81 Active 74281135 Problem Gastritis and duodenitis K29.90 Active 595485561 Problem History of high cholesterol Z86.39 Active 849086762 Problem Bipolar I disorder with mood-congruent psychotic features F31.9 Active 234615494 Problem Hypertension, benign I10 Active 66641275 Problem Primary insomnia F51.01 Active 9948726 ALLERGIES No Information ENCOUNTERS Encounter Location Date Diagnosis [facility] [id number] [place] [address] 62569- 0086 Jul, [facility] [address] 86158- 2797 Jul, [facility] [id number] [place] [address] 64323- 2741 Jun, [facility] [id number] [place] [address] 41124- 1582 Jun, [facility] [id number] [place] [address] 34336- 8904 Jun, Lumbago M54.5 [facility] [address] 30828- 1597 Jun, Type 2 diabetes mellitus with hyperglycemia E11.65 [facility] [id number] [place] [address] 99434- 3767 Jun, [facility] [address] 92195- 8028 Jun, Type 2 diabetes mellitus with hyperglycemia E11.65 ; El 's esophageal ulceration K22.10 and Lumbago M54.5 [facility] [id number] [place] [address] 55170- 7148 Jun, Type 2 diabetes mellitus with hyperglycemia E11.65 [facility] [id number] [place] [address] 65520- 4550 Jun, [facility] [id number] [place] [address] 97747- 4431 Jun, [facility] [id number] [place] [address] 49906- 7618 Jun, Bipolar affective disorder, currently depressed, mild F31.31 ; Chronic post-traumatic stress disorder (PTSD) F43.12 and Panic disorder with agoraphobia F40.01 [facility] [id number] [place] [address] 56584- 2253 Jun, [facility] [id number] [place] [address] 21680- 3462 Jun, [facility] [id number] [place] [address] 59528- 3457 Jun, Type 2 diabetes mellitus with hyperglycemia E11.65 [facility] [id number] [place] [address] 92367- 6481 Jun, Uncontrolled type 2 diabetes mellitus with hyperglycemia E11.65 [facility] [id number] [place] [address] 90410- 6315 Jun, [facility] [address] [place] [address]- 5265 May, Lumbago M54.5 [facility] [address] [address] May, [facility] [address] [place] [address]- 4306 May, [facility] [id number] [address]- 1609 May, [facility] [address] [place] [address]- 9017 May, [facility] [address] [place] [address]- 2447 May, [facility] [id number] [place] [address] 96284- 0546 May, [facility] [id number] [place] [address] 89850- 9161 May, [facility] [id number] [place] [address] 33025- 0262 May, Lumbago M54.5 [facility] [id number] [place] [address] 19016- 7204 May, [facility] [id number] [place] [address] 90196- 4060 Apr, Abnormal CT of the chest R93.8 [facility] [address], [place] [address]- 6356 Apr, Bipolar 2 disorder F31.81 ; Chronic post-traumatic stress disorder (PTSD) F43.12 and Panic disorder with agoraphobia F40.01 [facility] [address], [place] [address]- [address] Apr, [address] of the chest R93.8 [facility] [address] [place] [address]- [address] Apr, [address] of the chest R93.8 [facility] [id number] [place] [address] 43005- 0200 Apr, [facility] [address] [place] [address]- 5873 Apr, Type 2 diabetes mellitus with hyperglycemia E11.65 [facility] [id number] [place] [address] 70768- 6690 Apr, 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 mellitus without complication, without long-term current use of insulin E11.9 ; Watery eyes H04.203 ; Low back pain M54.5 ; Other chronic pain G89.29 ; Chronic tension-type headache, not intractable G44.229 ; Uncontrolled type 2 diabetes mellitus without complication , without long-term current use of insulin E11.65 and Bronchitis J40 [facility] [id number] [place] [address] 92919- 2150 Apr, [facility] [id number] [place] [address] 00571- 3630 Apr, Lumbago M54.5 [facility] [id number] [place] [address] 46907- 1099 March, [facility] [id number] [place] [address] 85246 -0268 March, Cough R05 ; Pneumonia due to infectious organism, unspecified laterality, unspecified part of lung J18.9 and Non-intractable vomiting with nausea, unspecified vomiting type R11.2 [facility] [id number] [place] [address] 28831- 1241 March, Bronchitis J40 [facility] [id number] [place] [address] 18060- 9184 March, [facility] [id number] [place] [address] 39800- 6032 March, El's esophageal ulceration K22.10 and Type 2 diabetes mellitus with hyperglycemia E11.65 [facility] [id number] [place] [address] 86609- 4695 March, Panic disorder with agoraphobia F40.01 ; Chronic post- traumatic stress disorder (PTSD) F43.12 and Bipolar 2 disorder F31.81 [facility] [id number] [place] [address] 28848- 9460 March, Type 2 diabetes mellitus with hyperglycemia E11.65 [facility] [id number] [address]- 4217 March, [facility] [id number] [place] [address] 60766- 0533 March, Lumbago M54.5 [facility] [id number] [place] [address] 55084- 2639 March, [facility] [id number] [place] [address] 82249- 2596 March, Irritable bowel syndrome with diarrhea K58.0 ; Primary insomnia F51.01 ; Type 2 diabetes mellitus with hyperglycemia E11.65 and care home current use of insulin Z79.4 [facility] [id number] [place] [address] 34667- 3015 March, [facility] [id number] [place] [address] 77218- 9057 Jan, [facility] [id number] [place] [address] 78404- 9413 Jan, [facility] [id number] [place] [address] 09656- 4729 Jan, [facility] [id number] [place] [address] 07798- 2966 Jan, [facility] [id number] [place] [address] 07362- 3240 Jan, Dizziness R42 [facility] [id number] [place] [address] 15093- 0787 Jan, Bipolar affective disorder, currently depressed, mild F31.31 ; Panic disorder with agoraphobia F40.01 and Chronic post-traumatic stress disorder (PTSD) F43.12 [facility] [id number] [place] [address] 69418- 1394 Jan, Dizziness R42 [facility] [id number] [place] [address] 61901- 8924 Jan, Chest pain, unspecified type R07.9 ; Exertional dyspnea R06.09 ; Hypertension, unspecified type I10 and Hyperlipidemia, unspecified hyperlipidemia type E78.5 [facility] [id number] [place] [address] 89772- 8066 Jan, [facility] [id number] [place] [address] 27651- 3006 Jan, Lumbago M54.5 [facility] [id number] [place] [address] 22040- 0063 Jan, El's esophageal ulceration K22.10 ; Blister (nonthermal ) of oral cavity, initial encounter S00.522A ; Local infection of the skin and subcutaneous tissue, unspecified L08.9 ; Type 2 diabetes mellitus with hyperglycemia E11.65 ; 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 and Stress incontinence N39.3 [facility] [id number] [place] [address] 98200- 2703 Dec, [facility] [id number] [place] [address] 46083- 6607 27 Dec, 2017 [facility] [id number] [place] [address] 49168- 6578 19 Dec, 2017 [facility] [id number] [place] [address] [phone] 16 Dec, 2017 Dental examination Z01.20 [facility] [id number] [place] [address] 75108- 0994 15 Dec, 2017 Acute pain of right knee M25.561 [facility] [id number] [place] [address] 60666- 2357 14 Dec, 2017 [facility] [id number] [place] [address] 25256- 0880 Dec, [facility] [id number] [place] [address] 84203- 4195 14 Dec, 2017 Lumbago M54.5 ; Acute pain of right knee M25.561 and Seasonal allergic rhinitis due to other allergic trigger J30.89 [facility] [address], [place] [address]- 6202 Dec, Type 2 diabetes mellitus with hyperglycemia E11.65 [facility] [id number] [place] [address] 73469- 6488 Dec, [facility] [id number] [place] [address] 57598- 8934 Dec, [facility] [id number] [place] [address] 11456- 4811 Dec, [facility] [id number] [place] [address] 11099- 2719 Dec, [facility] [id number] [place] [address] 73948- 6688 Dec, Chronic post-traumatic stress disorder (PTSD) F43.12 and Panic disorder with agoraphobia F40.01 [facility] [id number] [place] [address] 67456- 6864 13 Dec, 2017 Low back pain M54.5 [facility] [id number] [place] [address] 52479- 7447 12 Dec, 2017 Type 2 diabetes mellitus with hyperglycemia E11.65 ; care home current use of insulin Z79.4 ; Low back pain M54.5 ; Other chronic pain G89.29 and Encounter for therapeutic drug level monitoring Z51.81 [facility] [id number] [place] [address] 27882- 5498 09 Dec, 2017 Coughing R05 [facility] [id number] [place] [address] 03177- 7988 Dec, [facility] [id number] [place] [address] [phone] 07 Dec, 2017 Dental examination Z01.20 [facility] [id number] [place] [address] 74218- 9501 Nov, Type 2 diabetes mellitus without complications E11.9 and Encounter for therapeutic drug level monitoring Z51.81 [facility] [address], [place] [address]- 8461 Nov, [facility] [id number] [place] [address] 69950- 9013 Oct, Type 2 diabetes mellitus without complications E11.9 [facility] [id number] [place] [address] 57292- 6046 Oct, Type 2 diabetes mellitus with hyperglycemia E11.65 [facility] [id number] [place] [address] 55103- 7080 Aug, Type 2 diabetes mellitus without complications E11.9 [facility] [id number] [place] [address] 78401- 3782 Aug, Type 2 diabetes mellitus without complications E11.9 ; Hypoglycemia E16.2 ; Lumbago M54.5 ; Stress incontinence of urine N39.3 and History of NE (myocardial infarction) I25.2 [facility] [id number] [place] [address] 78284- 1540 Jun, [facility] [id number] [place] [address] 24761- 9567 May, [facility] [id number] [place] [address] 69446- 0047 Apr, Panic disorder with agoraphobia F40.01 [facility] [id number] [place] [address] 97365- 0634 Apr, Panic disorder with agoraphobia F40.01 [facility] [address], [place] [address]- 3505 Apr, [facility] [id number] [place] [address] 35963- 2635 March, Other chronic pain G89.29 [facility] [id number] [place] [address] 87666- 0183 March, [facility] [address], [place] [address]- 9679 March, [facility] [address], [place] [address]- 8563 March, [facility] [address], [place] [address]- 7387 March, [facility] [id number] [place] [address] 48902- 2260 March, Type 2 diabetes mellitus without complications E11.9 [facility] [address], [place] [address]- 7298 March, Diarrhea, unspecified type R19.7 [facility] [address], [place] [address]- 4891 March, Bipolar 2 disorder F31.81 ; Chronic post-traumatic stress disorder (PTSD) F43.12 and Type 2 diabetes mellitus with hyperglycemia E11.65 [facility] [address], [place] [address]- 7283 March, [facility] [address], [place] [address]- 1991 March, [facility] [address], [place] [address]- 1068 March, Hypertension, benign I10 ; Type 2 diabetes mellitus with hyperglycemia E11.65 ; Hepatitis C B19.20 ; Gastritis and duodenitis K29.90 and Dysuria R30.0 [facility] [id number] [address]- 3038 March, Hypertension, benign I10 ; Type 2 diabetes mellitus with hyperglycemia E11.65 ; Hepatitis C B19.20 ; Gastritis and duodenitis K29.90 and Dysuria R30.0 [facility] [address], [place] [address]- 0782 March, Panic disorder with agoraphobia F40.01 ; Chronic post- traumatic stress disorder (PTSD) F43.12 ; Epilepsy G40.909 and Bipolar I disorder with mood-congruent psychotic features F31.9 [facility] [id number] [place] [address] 05065- 4996 March, [facility] [id number] [place] [address] [id number]- 5556 March, Type 2 diabetes mellitus with hyperglycemia E11.65 [facility] [id number] [place] [address] 39063- 2826 18 Jan, 2017 Bipolar I disorder with duy F31.10 [facility] [id number] [place] [address] 10818- 5117 17 Jan, 2017 Bipolar 2 disorder F31.81 ; Chronic post-traumatic stress disorder (PTSD) F43.12 and Type 2 diabetes mellitus with hyperglycemia E11.65 [facility] [id number] [place] [address] 92894- 3070 17 Jan, 2017 [facility] [id number] [place] [address] 84217- 6133 Jan, [facility] [id number] [place] [address] 15995- 6643 14 Jan, 2017 Panic disorder with agoraphobia F40.01 [facility] [id number] [place] [address] 61781- 2548 13 Jan, 2017 Panic disorder with agoraphobia F40.01 ; Bipolar I disorder with mood-congruent psychotic features F31.9 ; Chronic post-traumatic stress disorder (PTSD) F43.12 and Epilepsy G40.909 [facility] [address] [place] [address]- 3060 Jan, [facility] [id number] [place] [address] 26745- 9092 Jan, [facility] [id number] [place] [address] 51844- 8154 10 Jan, 2017 Type 2 diabetes mellitus without complications E11.9 and Hypoglycemia E16.2 [facility] [address], [place] [address]- 9082 Jan, Type 2 diabetes mellitus without complications E11.9 ; Primary insomnia F51.01 and Hypertension, benign I10 [facility] [address], [place] [address]- 8328 Jan, [facility] [id number] [place] [address] [id number] Jan, [facility] [id number] [place] [address] 80739- 7067 Dec, Type 2 diabetes mellitus with hyperglycemia E11.65 [facility] [id number] [place] [address] 48628- 8383 Dec, [facility] [id number] [place] [address] 12613- 3632 Dec, Bipolar 2 disorder F31.81 ; Panic disorder with agoraphobia F40.01 ; Chronic post-traumatic stress disorder (PTSD) F43.12 and Epilepsy G40.909 [facility] [address] [place] [address]- 1311 Dec, [facility] [id number] [place] [address] 56443- 4253 Dec, [facility] [address], [place] [address]- 7393 Dec, Bipolar 2 disorder F31.81 ; Panic disorder with agoraphobia F40.01 ; Chronic post-traumatic stress disorder (PTSD) F43.12 and Epilepsy G40.909 [facility] [address], [place] [address]- 8642 Dec, [facility] [id number] [place] [address] 11340- 4645 Dec, [facility] [address], [place] [address]- 2410 Dec, [facility] [id number] [place] [address] 84028- 9346 Dec, Type 2 diabetes mellitus with hyperglycemia E11.65 ; 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 and Lumbago M54.5 [facility] [address] 65651- 3785 Dec, [facility] [address] 63910- 0420 Dec, [facility] [address] 24444- 9023 Dec, [facility] [address] 55297 -2527 Dec, Pain of left leg M79.605 and Pain in right leg M79.604 [facility] [address] 74986- 2289 Dec, [facility] [address] 80122- 4257 Dec, Type 2 diabetes mellitus with hyperglycemia E11.65 [facility] [address] 65835- 9574 Dec, [facility] [id number] [place] [address] 52687- 1020 Dec, Type 2 diabetes mellitus with hyperglycemia E11.65 ; 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 ; Vagina, candidiasis B37.3 and Other chronic pain G89.29 [facility] [id number] [place] [address] 19299- 9221 Nov, Panic disorder with agoraphobia F40.01 [facility] [address] 73261- 3971 Nov, [facility] [id number] [place] [address] 49114- 5822 Nov, [facility] [address] 37261- 4436 Nov, Hypoglycemia E16.2 [facility] [address] [place] [address]- 1462 Nov, [facility] [address] [place] [address]- 2541 Nov, [facility] [id number] [place] [address] Nov, [facility] [id number] [place] [address] Nov, Type 2 diabetes mellitus with hyperglycemia E11.65 and care home current use of insulin Z79.4 [place] [id number] [place] [address] Nov, Panic disorder with agoraphobia F40.01 ; Bipolar 2 disorder F31.81 ; Chronic post-traumatic stress disorder (PTSD) F43.12 and Epilepsy G40.909 [facility] [id number] [address] Nov, Panic disorder with agoraphobia F40.01 [facility] [id number] [place] [address] Oct, [facility] [id number] [address] Oct, [facility] [id number] [place] [address] Oct, Bipolar 2 disorder F31.81 ; Panic disorder with agoraphobia F40.01 and Mood disorder F39 [facility] [id number] [place] [address] Oct, Diabetes E11.9 ; Type 2 diabetes mellitus with hyperglycemia E11.65 and 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 [facility] [id number] [place] [address] Oct, [facility] [id number] [place] [address] Sep, [facility] [address] [place] [id number] [place] [address]- [address] Sep, Bipolar 2 disorder F31.81 and Mood disorder F39 [facility] [address] [place] [id number] [place] [place] [address] 59089- 0746 Sep, [facility] [id number] [place] [address] 82347- 7048 Sep, Uncontrolled type 2 diabetes mellitus without complication, without long-term current use of insulin E11.65 [facility] [id number] [place] [address] 52150- 2259 Sep, [facility] [id number] [place] [address] 05068- 6123 Sep, [facility] [id number] [place] [address] 86827- 3697 Sep, [facility] [id number] [place] [address] 09073- 1789 Sep, [facility] [id number] [place] [address] 31010- 4419 Sep, Bipolar 2 disorder F31.81 ; Chronic post-traumatic stress disorder (PTSD) F43.12 ; Panic disorder with agoraphobia F40.01 and Epilepsy G40.909 [facility] [id number] [place] [address] 27987- 1765 Sep, Bipolar 2 disorder F31.81 ; PTSD (post-traumatic stress disorder) F43.10 and Panic disorder with agoraphobia F40.01 [facility] [id number] [place] [address] 65451- 5892 07 Sep, 2016 [facility] [id number] [place] [address] 53986- 2764 28 Aug, 2016 History of seizures Z87.898 ; Panic disorder with agoraphobia F40.01 and Bipolar 2 disorder F31.81 [facility] [id number] [address] 0449 19 Aug, 2016 [facility] [id number] [place] [address] 53295- 1806 17 Aug, 2016 [facility] [id number] [place] [address] 25322- 9955 Aug, [facility] [address] 28996- 6059 Aug, [facility] [id number] [place] [address] 27147- 6604 Aug, [facility] [address] 89255- 1688 Aug, [facility] [address] 57343- 7626 Aug, Hypoglycemia E16.2 and Bilateral impacted cerumen H61.23 [facility] [id number] [place] [address] 62591- 1016 Aug, [facility] [id number] [place] [address] 46723- 6678 21 Jul, 2016 [facility] [id number] [place] [address] 82001- 6321 Jul, [facility] [id number] [place] [address] 19073- 8771 15 Jul, 2016 Bipolar 2 disorder F31.81 ; Panic disorder with agoraphobia F40.01 ; PTSD (post-traumatic stress disorder) F43.10 and Epilepsy G40.909 [facility] [id number] [place] [address] 30254- 9804 12 Jul, 2016 [facility] [id number] [place] [address] 39292- 7216 09 Jul, 2016 Type 2 diabetes mellitus without complications E11.9 and Coughing R05 [facility] [address] [place] [address] 6887 Jul, [facility] [id number] [place] [address] 10134- 5479 Jun, [facility] [id number] [place] [address] 80274- 0625 Jun, Bipolar 2 disorder F31.81 ; PTSD (post-traumatic stress disorder) F43.10 and Panic disorder with agoraphobia F40.01 [facility] [id number] [place] [address] 54217- 2406 Jun, [facility] [id number] [place] [address] 36988- 4327 Jun, [facility] [id number] [place] [address] 97491- 8882 Jun, [facility] [id number] [place] [address] 75959- 6558 Jun, Type 2 diabetes mellitus without complications E11.9 and COPD (chronic obstructive pulmonary disease) J44.9 [facility] [id number] [place] [address] [id number] May, Dental examination Z01.20 and Dental caries K02.9 [facility] [id number] [place] [address] 59750- 8306 May, Bipolar 2 disorder F31.81 ; PTSD (post-traumatic stress disorder) F43.10 and Panic disorder with agoraphobia F40.01 [facility] [address] [address]- 4154 May, Lumbago with sciatica, right side M54.41 ; Other chronic pain G89.29 and Uncontrolled type 2 diabetes mellitus without complication, without long-term current use of insulin E11.65 [facility] [address] [address]- 1569 May, Chronic bronchitis, unspecified chronic bronchitis type J42 [facility] [id number] [place] [address] 60758- 2379 May, [facility] [address] 71835- 5052 May, [facility] [id number] [place] [address] 05921- 9740 May, Chest pain, unspecified type R07.9 ; Tobacco use Z72.0 ; Type 2 diabetes mellitus without complications E11.9 ; Essential hypertension I10 ; Hyperlipidemia, unspecified hyperlipidemia type E78.5 ; Obesity (BMI 30- 39.9) E66.9 ; History of hypothyroidism Z86.39 ; Chronic obstructive pulmonary disease, unspecified COPD type J44.9 ; Anxiety F41.9 ; Bilateral claudication of lower limb I73.9 and Bipolar 2 disorder F31.81 [facility] [address] 30511- 2736 May, Bipolar 2 disorder F31.81 ; Panic disorder with agoraphobia F40.01 and Tobacco abuse Z72.0 [facility] [address] 12033- 3960 Apr, [facility] [address] 35639- 4621 Apr, [facility] [id number] [place] [address] 45147- 2077 Apr, [facility] [id number] [place] [address] 09163- 6827 Apr, Bipolar 2 disorder F31.81 ; Panic disorder with agoraphobia F40.01 and PTSD (post-traumatic stress disorder) F43.10 [facility] [address] 29021- 5956 Apr, Chronic bronchitis, unspecified chronic bronchitis type J42 ; Cervical neuritis M54.12 and Thoracic neuritis M54.[address] 18124- 9996 Apr, [facility] [id number] [place] [address] 03517- 2479 15 Apr, 2016 Cervicalgia M54.2 [facility] [id number] [place] [address] 90104- 6644 14 Apr, 2016 Bipolar 2 disorder F31.81 ; Panic disorder with agoraphobia F40.01 and PTSD (post-traumatic stress disorder) F43.10 [facility] [id number] [place] [address] 84781 -4321 13 Apr, 2016 [facility] [id number] [place] [address] 94387 -7480 09 Apr, 2016 Cough R05 and Tobacco dependence F17.200 [facility] [id number] [place] [address] 87161- 6665 06 Apr, 2016 [facility] [id number] [place] [address] 86076- 7565 Apr, [facility] [id number] [place] [address] 33668- 7070 March, Bipolar 2 disorder F31.81 ; Panic disorder with agoraphobia F40.01 and Generalized anxiety disorder F41.1 [facility] [id number] [place] [address] 24740- 6718 March, Closed displaced fracture of fifth metatarsal bone of right foot with routine healing, subsequent encounter S92.351D [facility] [id number] [place] [address] 21190- 9620 March, Bronchitis J40 [facility] [id number] [place] [address] 89783- 0752 March, [facility] [id number] [place] [address] 42598- 6859 March, [facility] [id number] [place] [address] 60211- 0374 March, Foot pain, right M79.671 ; Cervicalgia M54.2 and 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 mellitus without complication, unspecified correction insulin use status E11.9 [facility] [id number] [place] [address] 28450- 8454 March, Fracture of fifth metatarsal bone of right foot S92.351A [facility] [id number] [place] [address] 46849- 0498 March, [facility] [address] 30162- 3077 Jan, Fracture of fifth metatarsal bone of right foot S92.351A [facility] [id number] [place] [address] 41234- 6196 Jan, Bipolar 2 disorder F31.81 ; PTSD (post-traumatic stress disorder) F43.10 ; Panic disorder with agoraphobia F40.01 and Epilepsy G40.909 [facility] [id number] [place] [address] 43931- 9169 Jan, History of NE (myocardial infarction) I25.2 and History of high cholesterol Z86.39 [facility] [id number] [place] [address] 73014- 9142 Jan, Bipolar 2 disorder F31.81 ; Panic disorder with agoraphobia F40.01 ; Tobacco abuse Z72.0 and PTSD (post-traumatic stress disorder) F43.10 [facility] [id number] [place] [address] 67799- 1312 Jan, Fracture of fifth metatarsal bone of right foot S92.351A [facility] [id number] [place] [address] 66438- 1914 Jan, [facility] [id number] [place] [address] 70586- 6348 Jan, History of high cholesterol Z86.39 [facility] [id number] [place] [address] 23396- 9246 Jan, History of NE (myocardial infarction) I25.2 [facility] [id number] [place] [address] 89726- 3705 Jan, [facility] [address] 66625- 8336 Dec, Back pain M54.9 ; Diabetes E11.9 ; Right knee pain M25.561 and Chest pain R07.9 [facility] [address] 06106- 0017 Dec, [facility] [address] 45424- 2009 Dec, [facility] [address] 94167- 7390 Dec, Cervicalgia M54.2 [facility] [address] 23386- 4803 Dec, Bipolar 2 disorder F31.81 ; PTSD (post-traumatic stress disorder) F43.10 ; Panic disorder with agoraphobia F40.01 and Epilepsy G40.909 [facility] [id number] [place] [address] 08497- 7183 Dec, Bipolar 2 disorder F31.81 ; PTSD (post-traumatic stress disorder) F43.10 and Panic disorder with agoraphobia F40.01 [facility] [id number] [place] [address] 85318- 7327 Dec, Diabetes E11.9 [facility] [id number] [place] [address] 41817- 5967 Dec, [facility] [id number] [place] [address] 02209- 6751 Dec, Other chronic pain G89.29 ; Hepatitis C B19.20 and History of seizures Z87.898 [facility] [id number] [place] [address] 67463- 3780 Dec, [facility] [address] 38533- 9817 Dec, Bipolar 2 disorder F31.81 and Other chronic pain G89.29 [facility] [id number] [place] [address] 55718- 7946 Dec, Cervicalgia M54.2 and Diabetes E11.9 [facility] [address] 72491- 6292 Dec, [facility] [address] 14300- 1158 Dec, [facility] [address] 49436- 5871 Dec, [facility] [address] 98574- 4533 Dec, [facility] [id number] [place] [address] 03620- 6341 Dec, Type 2 diabetes mellitus without complications E11.9 [facility] [id number] [place] [address] 64450- 0154 Dec, [facility] [address] 23947- 9400 Dec, History of seizures Z87.898 and Hepatitis C B19.20 [facility] [id number] [place] [address] 37224- 0797 Dec, Hepatitis C B19.20 [facility] [id number] [place] [address] 92355- 7409 Dec, [facility] [id number] [place] [address] 17856- 2109 Dec, Cervicalgia M54.2 ; COPD (chronic obstructive pulmonary disease) J44.9 and Hepatitis C B19.20 [facility] [id number] [place] [address] 26403- 0259 Dec, Bipolar 2 disorder F31.81 ; History of hypertension Z86.79 ; History of anxiety Z86.59 ; Panic disorder with agoraphobia F40.01 and Epilepsy G40.909 [address] [id number] [place] [address] 37606- 4791 Nov, [facility] [id number] [place] [address] 90020- 4101 Nov, [address] 83405- 0130 Nov, History of seizures Z87.898 ; OAB (overactive bladder) N32.81 ; Lumbago M54.5 ; Other chronic pain G89.29 ; Cervicalgia M54.2 ; Tobacco abuse Z72.0 ; Tobacco abuse counseling Z71.6 and Impaired fasting glucose R73.[address] 77862- 6388 Nov, Bipolar 2 disorder F31.81 ; PTSD (post-traumatic stress disorder) F43.10 ; History of anxiety Z86.59 ; History of COPD Z87.09 ; Panic disorder with agoraphobia F40.01 and Moderate depressed bipolar I disorder F31.32 [id number] [place] [address] 44376- 0437 12 Nov, 2015 PTSD (post-traumatic stress disorder) F43.10 [facility] [id number] [place] [address] [id number] 11 Nov, 2015 Dental examination Z01.20 and Dental caries K02.9 [place] [id number] [place] [address] 41558- 6881 08 Nov, 2015 History of hypertension Z86.79 ; History of hypothyroidism Z86.39 ; History of high cholesterol Z86.39 ; History of COPD Z87.09 and Overactive bladder N32.81 [id number] [place] [address] 51711- 2589 Nov, Bipolar 2 disorder F31.81 and PTSD (post-traumatic stress disorder) F43.[id number] [place] [address] 90379- 0298 Nov, PTSD (post-traumatic stress disorder) F43.10 ; Panic disorder with agoraphobia F40.01 ; Epilepsy G40.909 and Moderate depressed bipolar I disorder F31.32 [address] [id number] [place] [address] 24982- 6909 Nov, [facility] [id number] [place] [address] 86387- 9616 Nov, [facility] [id number] [place] [address] 25086- 7152 Oct, [place] [id number] [place] [address] 93276- 6803 Oct, Generalized anxiety disorder F41.1 ; Major depression, recurrent F33.9 and PTSD (post-traumatic stress disorder) F43.10 [place] [id number] [place] [address] 00065- 0241 Oct, Elevated fasting glucose R73.01 [place] [id number] [place] [address] 68285- 6631 Oct, Elevated fasting glucose R73.01 [place] [id number] [place] [address] 31243- 1097 Oct, History of COPD Z87.09 [place] [id number] [place] [address] 83848- 0979 Oct, General medical exam Z00.00 ; History of hypertension Z86.79 ; History of hypothyroidism Z86.39 ; History of hepatitis Z86.19 ; History of high cholesterol Z86.39 and History of seizures Z87.898 [address] [id number] [place] [address] 18549- 5581 10 Oct, 2015 General medical exam Z00.00 ; History of hypertension Z86.79 ; History of hypothyroidism Z86.39 ; Bipolar 2 disorder F31.81 ; PTSD ( post-traumatic stress disorder) F43.10 ; History of hepatitis Z86.19 ; History of high cholesterol Z86.39 ; History of anxiety Z86.59 ; History of seizures Z87.898 ; History of NE (myocardial infarction) I25.2 and History of COPD Z87.09 [facility] [address] [address]- 1131 Oct, Generalized anxiety disorder F41.1 ; Depression F32.9 and PTSD (post-traumatic stress disorder) F43.10 [facility] [id number] [place] [address] 22011- 6831 Jan, [facility] [id number] [place] [address] 15692- 3184 Jan, [facility] [id number] [place] [address] 20786- 4028 Jun, [address] [place] [id number] Jun, [facility] [id number] [place] [address] [id number]- 0777 May, [facility] [id number] [place] [address] [id number]- 3960 May, [address] [id number] May, [facility] [id number] [place] [address] 90727- 7726 May, [address] [id number] May, [facility] [address] [place] [address]- 4416 May, IMMUNIZATIONS No Known Immunizations SOCIAL HISTORY Never Assessed REASON FOR VISIT Controlled Med Refill 06/02/18 PLAN OF CARE VITAL SIGNS MEDICATIONS Medication Instructions Dosage Frequency Start Date End Date Duration Status [place] 10-325 MG Orally 3 times a day 1 tablet as needed May, 28 days Active RESULTS No Results PROCEDURES [...]
--- OUTSIDE RECORDS SUMMARY | 2019-01-26 07:28 | XMS REPORT ---
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 Name Role Phone MARGI GERARDO Unavailable PROBLEMS Type Condition ICD9-CM Code LLD31-PM Code Onset Dates Condition Status SNOMED Code Problem OAB (overactive bladder) N32.81 Active 128161024 Problem Epilepsy G40.909 Active 48256603 Problem Cervicalgia M54.2 Active 16818199 Problem Other chronic pain G89.29 Active 33526585 Problem Tobacco abuse Z72.0 Active 20578823 Problem Lumbago M54.5 Active 792351915 Problem Hepatitis C B19.20 Active 87662060 Problem COPD (chronic obstructive pulmonary disease) J44.9 Active 43445053 Problem Diabetes E11.9 Active 18182094 Problem Bipolar I disorder with duy F31.10 Active 04605673 Problem Type 2 diabetes mellitus without complications E11.9 Active 531589017 Problem Stress incontinence of urine N39.3 Active 11995808 Problem Bilateral claudication of lower limb I73.9 Active 544213640 Problem Seasonal allergic rhinitis due to other allergic trigger J30.89 Active 684293823 Problem Hyperlipidemia, unspecified hyperlipidemia type E78.5 Active 07405754 Problem Hypertension, unspecified type I10 Active 00171007 Problem Chronic tension-type headache, not intractable G44.229 Active 684542620 Problem 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 mellitus without complication, without long -term current use of insulin E11.9 Active 963750585 Problem Type 2 diabetes mellitus with hyperglycemia E11.65 Active 724125315 Problem Chronic post-traumatic stress disorder (PTSD) F43.12 Active 590130670 Problem History of hypothyroidism Z86.39 Active 034002025 Problem Hypoglycemia E16.2 Active 376562655 Problem El's esophageal ulceration K22.10 Active 539288798 Problem Bipolar affective disorder, currently depressed, mild F31.31 Active 244615586 Problem Irritable bowel syndrome with diarrhea K58.0 Active 537819067 Problem Stress incontinence N39.3 Active 13604101 Problem History of hypertension Z86.79 Active 544851353 Problem Uncontrolled type 2 diabetes mellitus without complication, without long-term current use of insulin E11.65 Active 793962481 Problem Panic disorder with agoraphobia F40.01 Active 02540670 Problem Type 2 diabetes mellitus with hyperglycemia E11.65 Active 377986745 Problem History of seizures Z87.898 Active 789634462 Problem 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 current use of insulin Z79.4 Active 086152073 Problem History of [place] (myocardial infarction) I25.2 Active 243710692 Problem Mood disorder F39 Active 92264308 Problem Bipolar 2 disorder F31.81 Active 88837331 Problem Gastritis and duodenitis K29.90 Active 510089103 Problem History of high cholesterol Z86.39 Active 552293789 Problem Bipolar I disorder with mood-congruent psychotic features F31.9 Active 546882146 Problem Hypertension, benign I10 Active 63445462 Problem Primary insomnia F51.01 Active 3809349 ALLERGIES No Information ENCOUNTERS Encounter Location Date Diagnosis [facility] [id number] [place] [address] 20483- 1717 Jul, [facility] [address] 85351- 8319 Jul, [facility] [id number] [place] [address] 86702- 5410 Jun, [facility] [id number] [place] [address] 82776- 3167 Jun, [facility] [id number] [place] [address] 48952- 6585 Jun, Lumbago M54.5 [facility] [address] 04891- 1298 Jun, Type 2 diabetes mellitus with hyperglycemia E11.65 [facility] [id number] [place] [address] 33008- 4321 Jun, [facility] [address] 12755- 9849 Jun, Type 2 diabetes mellitus with hyperglycemia E11.65 ; El 's esophageal ulceration K22.10 and Lumbago M54.5 [facility] [id number] [place] [address] 51940- 4169 Jun, Type 2 diabetes mellitus with hyperglycemia E11.65 [facility] [id number] [place] [address] 53110- 6828 Jun, [facility] [id number] [place] [address] 46259- 8062 Jun, [facility] [id number] [place] [address] 81960- 8355 Jun, Bipolar affective disorder, currently depressed, mild F31.31 ; Chronic post-traumatic stress disorder (PTSD) F43.12 and Panic disorder with agoraphobia F40.01 [facility] [id number] [place] [address] 68019- 9994 Jun, [facility] [id number] [place] [address] 20547- 7663 Jun, [facility] [id number] [place] [address] 84829- 8516 Jun, Type 2 diabetes mellitus with hyperglycemia E11.65 [facility] [id number] [place] [address] 70010- 8924 Jun, Uncontrolled type 2 diabetes mellitus with hyperglycemia E11.65 [facility] [id number] [place] [address] 24868- 7302 Jun, [facility] [address] [address] 2893 May, Lumbago M54.5 [facility] [address] [id number] May, [facility] [address] [address]- 6912 May, [facility] [id number] [address]- 6057 May, [facility] [address] [address]- 3604 May, [facility] [address] [address]- 6403 May, [facility] [address] [place] [address] 13585- 6751 May, [facility] [id number] [place] [address] 52581- 7486 May, [facility] [id number] [place] [address] 33440- 9810 May, Lumbago M54.5 [facility] [address] [place] [address] 76036- 8605 May, [facility] [id number] [place] [address] 42373- [address], [address] of the chest R93.8 [facility] [address], [place] [address]- 5847 Apr, Bipolar 2 disorder F31.81 ; Chronic post-traumatic stress disorder (PTSD) F43.12 and Panic disorder with agoraphobia F40.01 [facility] [address] [address] [address], [address] of the chest R93.8 [facility] [address], [place] [address]- [address] Apr, [address] of the chest R93.8 [facility] [id number] [place] [address] 12096- 1234 Apr, [facility] [address], [place] [address]- 2148 Apr, Type 2 diabetes mellitus with hyperglycemia E11.65 [facility] [id number] [place] [address] 27460- 2925 Apr, 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 mellitus without complication, without long-term current use of insulin E11.9 ; Watery eyes H04.203 ; Low back pain M54.5 ; Other chronic pain G89.29 ; Chronic tension-type headache, not intractable G44.229 ; Uncontrolled type 2 diabetes mellitus without complication , without long-term current use of insulin E11.65 and Bronchitis J40 [facility] [id number] [place] [address] 16282- 4966 Apr, [facility] [id number] [place] [address] 11268- 7205 Apr, Lumbago M54.5 [facility] [id number] [place] [address] 00917- 3870 March, [facility] [id number] [place] [address] 83073 -0956 March, Cough R05 ; Pneumonia due to infectious organism, unspecified laterality, unspecified part of lung J18.9 and Non-intractable vomiting with nausea, unspecified vomiting type R11.2 [facility] [id number] [place] [address] 74668- 0396 March, Bronchitis J40 [facility] [id number] [place] [address] 71162- 9060 March, [facility] [id number] [place] [address] 49769- 9359 March, El's esophageal ulceration K22.10 and Type 2 diabetes mellitus with hyperglycemia E11.65 [facility] [id number] [place] [address] 74260- 3237 March, Panic disorder with agoraphobia F40.01 ; Chronic post- traumatic stress disorder (PTSD) F43.12 and Bipolar 2 disorder F31.81 [facility] [id number] [place] [address] 36407- 8019 March, Type 2 diabetes mellitus with hyperglycemia E11.65 [facility] [address] [address]- 4386 March, [facility] [id number] [place] [address] 19851- 5358 March, Lumbago M54.5 [facility] [id number] [place] [address] 79279- 9234 March, [facility] [id number] [place] [address] 43706- 9478 March, Irritable bowel syndrome with diarrhea K58.0 ; Primary insomnia F51.01 ; Type 2 diabetes mellitus with hyperglycemia E11.65 and 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 current use of insulin Z79.4 [facility] [id number] [place] [address] 56506- 0746 March, [facility] [id number] [place] [address] 82020- 0686 Jan, [facility] [id number] [place] [address] 88972- 0988 Jan, [facility] [id number] [place] [address] 41930- 3601 Jan, [facility] [id number] [place] [address] 61338- 4894 Jan, [facility] [id number] [place] [address] 37280- 2115 Jan, Dizziness R42 [facility] [id number] [place] [address] 92175- 9579 Jan, Bipolar affective disorder, currently depressed, mild F31.31 ; Panic disorder with agoraphobia F40.01 and Chronic post-traumatic stress disorder (PTSD) F43.12 [facility] [id number] [place] [address] 26426- 2379 Jan, Dizziness R42 [facility] [id number] [place] [address] 28604- 4216 Jan, Chest pain, unspecified type R07.9 ; Exertional dyspnea R06.09 ; Hypertension, unspecified type I10 and Hyperlipidemia, unspecified hyperlipidemia type E78.5 [facility] [id number] [place] [address] 50620- 0171 Jan, [facility] [id number] [place] [address] 53057- 6382 Jan, Lumbago M54.5 [facility] [id number] [place] [address] 49897- 5948 Jan, El's esophageal ulceration K22.10 ; Blister (nonthermal ) of oral cavity, initial encounter S00.522A ; Local infection of the skin and subcutaneous tissue, unspecified L08.9 ; Type 2 diabetes mellitus with hyperglycemia E11.65 ; 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 and Stress incontinence N39.3 [facility] [id number] [place] [address] 25537- 9490 Dec, [facility] [id number] [place] [address] 04237- 2854 27 Dec, 2017 [facility] [id number] [place] [address] 30980- 8931 19 Dec, 2017 [facility] [id number] [place] [address] [phone] 16 Dec, 2017 Dental examination Z01.20 [facility] [id number] [place] [address] 51285- 6614 15 Dec, 2017 Acute pain of right knee M25.561 [facility] [id number] [place] [address] 96298- 9886 14 Dec, 2017 [facility] [id number] [place] [address] 57858- 2842 Dec, [facility] [address] [place] [address] 86814- 4118 14 Dec, 2017 Lumbago M54.5 ; Acute pain of right knee M25.561 and Seasonal allergic rhinitis due to other allergic trigger J30.89 [facility] [address], [place] [address]- 7010 Dec, Type 2 diabetes mellitus with hyperglycemia E11.65 [facility] [id number] [place] [address] 92283- 2334 Dec, [facility] [id number] [place] [address] 73629- 0948 Dec, [facility] [id number] [place] [address] 40667- 9462 Dec, [facility] [id number] [place] [address] 31302- 5821 Dec, [facility] [id number] [place] [address] 07060- 1263 Dec, Chronic post-traumatic stress disorder (PTSD) F43.12 and Panic disorder with agoraphobia F40.01 [facility] [id number] [place] [address] 22822- 1479 13 Dec, 2017 Low back pain M54.5 [facility] [id number] [place] [address] 41411- 8554 12 Dec, 2017 Type 2 diabetes mellitus with hyperglycemia E11.65 ; 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 current use of insulin Z79.4 ; Low back pain M54.5 ; Other chronic pain G89.29 and Encounter for therapeutic drug level monitoring Z51.81 [facility] [id number] [place] [address] 57367- 0830 09 Dec, 2017 Coughing R05 [facility] [id number] [place] [address] 03962- 6471 Dec, [facility] [id number] [place] [address] [phone] Dec, 2017 Dental examination Z01.20 [facility] [id number] [place] [address] 66152- 5581 Nov, Type 2 diabetes mellitus without complications E11.9 and Encounter for therapeutic drug level monitoring Z51.81 [facility] [address] [address]- 7665 Nov, [facility] [id number] [place] [address] 74340- 7109 Oct, Type 2 diabetes mellitus without complications E11.9 [facility] [id number] [place] [address] 66808- 7637 Oct, Type 2 diabetes mellitus with hyperglycemia E11.65 [facility] [id number] [place] [address] 85440- 8929 Aug, Type 2 diabetes mellitus without complications E11.9 [facility] [id number] [place] [address] 99304- 7133 Aug, Type 2 diabetes mellitus without complications E11.9 ; Hypoglycemia E16.2 ; Lumbago M54.5 ; Stress incontinence of urine N39.3 and History of [place] (myocardial infarction) I25.2 [facility] [address] [place] [address] 64273- 4687 Jun, [facility] [id number] [place] [address] 45443- 3683 May, [facility] [id number] [place] [address] 09523- 1245 Apr, Panic disorder with agoraphobia F40.01 [facility] [id number] [place] [address] 97318- 1742 Apr, Panic disorder with agoraphobia F40.01 [facility] [address] [address]- 5090 Apr, [facility] [id number] [place] [address] 74057- 6797 March, Other chronic pain G89.29 [facility] [id number] [place] [address] 39416- 2629 March, [facility] [address], [place] [address]- 8753 March, [facility] [address], [place] [address]- 8009 March, [facility] [address] [address]- 6856 March, [facility] [id number] [place] [address] 91266- 6902 March, Type 2 diabetes mellitus without complications E11.9 [facility] [address], [place] [address]- 5009 March, Diarrhea, unspecified type R19.7 [facility] [address], [place] [address]- 7789 March, Bipolar 2 disorder F31.81 ; Chronic post-traumatic stress disorder (PTSD) F43.12 and Type 2 diabetes mellitus with hyperglycemia E11.65 [facility] [address], [place] [address]- 9817 March, [facility] [address], [place] [address]- 5904 March, [facility] [address], [place] [address]- 7379 March, Hypertension, benign I10 ; Type 2 diabetes mellitus with hyperglycemia E11.65 ; Hepatitis C B19.20 ; Gastritis and duodenitis K29.90 and Dysuria R30.0 [facility] [id number] [address]- 7189 March, Hypertension, benign I10 ; Type 2 diabetes mellitus with hyperglycemia E11.65 ; Hepatitis C B19.20 ; Gastritis and duodenitis K29.90 and Dysuria R30.0 [facility] [address], [place] [address]- 6944 March, Panic disorder with agoraphobia F40.01 ; Chronic post- traumatic stress disorder (PTSD) F43.12 ; Epilepsy G40.909 and Bipolar I disorder with mood-congruent psychotic features F31.9 [facility] [address] [place] [address] 78688- 6346 March, [facility] [id number] [place] [address] 92975149- 9346 March, Type 2 diabetes mellitus with hyperglycemia E11.65 [facility] [id number] [place] [address] 31018- 4646 18 Jan, 2017 Bipolar I disorder with duy F31.10 [facility] [id number] [place] [address] 75096- 9657 17 Jan, 2017 Bipolar 2 disorder F31.81 ; Chronic post-traumatic stress disorder (PTSD) F43.12 and Type 2 diabetes mellitus with hyperglycemia E11.65 [facility] [id number] [place] [address] 11125- 6387 17 Jan, 2017 [facility] [id number] [place] [address] 31793- 9038 Jan, [facility] [id number] [place] [address] 14548- 3286 14 Jan, 2017 Panic disorder with agoraphobia F40.01 [facility] [address] [place] [address] 78896- 4666 13 Jan, 2017 Panic disorder with agoraphobia F40.01 ; Bipolar I disorder with mood-congruent psychotic features F31.9 ; Chronic post-traumatic stress disorder (PTSD) F43.12 and Epilepsy G40.909 [facility] [address], [place] [address]- 2890 Jan, [facility] [id number] [place] [address] 47353- 1320 Jan, [facility] [address] [place] [address] 61425- 3290 10 Jan, 2017 Type 2 diabetes mellitus without complications E11.9 and Hypoglycemia E16.2 [facility] [address], [place] [address]- 3793 Jan, Type 2 diabetes mellitus without complications E11.9 ; Primary insomnia F51.01 and Hypertension, benign I10 [facility] [address], [place] [address]- 6516 Jan, [facility] [id number] [place] [address] [id number] Jan, [facility] [id number] [place] [address] 09079- 3540 Dec, Type 2 diabetes mellitus with hyperglycemia E11.65 [facility] [id number] [place] [address] 55713- 0595 Dec, [facility] [id number] [place] [address] 55223- 0489 Dec, Bipolar 2 disorder F31.81 ; Panic disorder with agoraphobia F40.01 ; Chronic post-traumatic stress disorder (PTSD) F43.12 and Epilepsy G40.909 [facility] [address], [place] [address]- 8073 Dec, [facility] [id number] [place] [address] 80645- 0339 Dec, [facility] [address], [place] [address]- 2965 Dec, Bipolar 2 disorder F31.81 ; Panic disorder with agoraphobia F40.01 ; Chronic post-traumatic stress disorder (PTSD) F43.12 and Epilepsy G40.909 [facility] [address], [place] [address]- 8346 Dec, [facility] [id number] [place] [address] 89038- 2091 Dec, [facility] [address], [place] [address]- 2374 Dec, [facility] [id number] [place] [address] 60602- 5901 Dec, Type 2 diabetes mellitus with hyperglycemia E11.65 ; 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 and Lumbago M54.5 [facility] [address] 58615- 8861 Dec, [facility] [address] 26144- 8744 Dec, [facility] [address] 15184- 9610 Dec, [facility] [address] 33024 -4584 Dec, Pain of left leg M79.605 and Pain in right leg M79.604 [facility] [address] 98569- 4345 Dec, [facility] [address] 95211- 8790 Dec, Type 2 diabetes mellitus with hyperglycemia E11.65 [facility] [address] 13791- 0517 Dec, [facility] [id number] [place] [address] 17397- 5139 Dec, Type 2 diabetes mellitus with hyperglycemia E11.65 ; 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 ; Vagina, candidiasis B37.3 and Other chronic pain G89.29 [facility] [id number] [place] [address] 90443- 6173 Nov, Panic disorder with agoraphobia F40.01 [facility] [address] 90941- 7027 Nov, [facility] [id number] [place] [address] 81855- 5814 Nov, [facility] [address] 18381- 0214 Nov, Hypoglycemia E16.2 [facility] [address] [address]- 5814 Nov, [facility] [address] [address]- 3769 Nov, [facility] [address] [place] [address] 60743- 0595 Nov, [facility] [address] [place] [address] 11845- 4309 Nov, Type 2 diabetes mellitus with hyperglycemia E11.65 and 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 current use of insulin Z79.4 [facility] [address] [place] [address] 21219- 2419 Nov, Panic disorder with agoraphobia F40.01 ; Bipolar 2 disorder F31.81 ; Chronic post-traumatic stress disorder (PTSD) F43.12 and Epilepsy G40.909 [facility] [address], [place] [address]- 5174 Nov, Panic disorder with agoraphobia F40.01 [facility] [address] [place] [address] 31804- 2748 Oct, [facility] [address] [address]- 6662 Oct, [facility] [address] [place] [address] 88758- 5243 Oct, Bipolar 2 disorder F31.81 ; Panic disorder with agoraphobia F40.01 and Mood disorder F39 [facility] [address] [place] [address] 45268- 5864 Oct, Diabetes E11.9 ; Type 2 diabetes mellitus with hyperglycemia E11.65 and 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 [facility] [address] [address]- 9216 Oct, [facility] [address] [address]- 6283 Sep, [facility] [id number] [place] [address] 9055 Sep, Bipolar 2 disorder F31.81 and Mood disorder F39 [facility] [id number] [place] [address] Sep, [facility] [id number] [place] [address] Sep, Uncontrolled type 2 diabetes mellitus without complication, without long-term current use of insulin E11.65 [facility] [id number] [place] [address]- 9638 Sep, [facility] [id number] [place] [address]- 1986 Sep, [place] [id number] [place] [address] 05047- 1040 Sep, [facility] [id number] [place] [address] 28839- 7313 Sep, [facility] [id number] [place] [address] 07208- 5820 Sep, Bipolar 2 disorder F31.81 ; Chronic post-traumatic stress disorder (PTSD) F43.12 ; Panic disorder with agoraphobia F40.01 and Epilepsy G40.909 [facility] [id number] [place] [address] 48680- 7917 Sep, Bipolar 2 disorder F31.81 ; PTSD (post-traumatic stress disorder) F43.10 and Panic disorder with agoraphobia F40.01 [facility] [id number] [place] [address] 16220- 8718 07 Sep, 2016 [facility] [address] [place] [address] 14162- 7993 28 Aug, 2016 History of seizures Z87.898 ; Panic disorder with agoraphobia F40.01 and Bipolar 2 disorder F31.81 [facility] [id number] [address] 7[address] 19 Aug, 2016 [facility] [id number] [place] [address] 74519- 2648 17 Aug, 2016 [facility] [id number] [place] [address] 05480- 8699 Aug, [facility] [address] 58120- 1852 Aug, [facility] [id number] [place] [address] 94218- 4990 Aug, [facility] [address] 19842- 7730 Aug, [facility] [address] 46957- 2549 Aug, Hypoglycemia E16.2 and Bilateral impacted cerumen H61.23 [facility] [id number] [place] [address] 38706- 9961 Aug, [facility] [id number] [place] [address] 18600- 6523 21 Jul, 2016 [facility] [id number] [place] [address] 48647- 9903 Jul, [facility] [id number] [place] [address] 98093- 9377 15 Jul, 2016 Bipolar 2 disorder F31.81 ; Panic disorder with agoraphobia F40.01 ; PTSD (post-traumatic stress disorder) F43.10 and Epilepsy G40.909 [facility] [id number] [place] [address] 95173- 7016 12 Jul, 2016 [facility] [id number] [place] [address] 20952- 3878 09 Jul, 2016 Type 2 diabetes mellitus without complications E11.9 and Coughing R05 [facility] [address] [place] [address] 4[address] Jul, [facility] [id number] [place] [address] 68854- 7397 Jun, [facility] [id number] [place] [address] 55772- 1231 Jun, Bipolar 2 disorder F31.81 ; PTSD (post-traumatic stress disorder) F43.10 and Panic disorder with agoraphobia F40.01 [facility] [id number] [place] [address] 81506- 1927 Jun, [facility] [id number] [place] [address] 75693- 1101 Jun, [facility] [id number] [place] [address] 44482- 9523 Jun, [facility] [id number] [place] [address] 10727- 0856 Jun, Type 2 diabetes mellitus without complications E11.9 and COPD (chronic obstructive pulmonary disease) J44.9 [facility] [id number] [place] [address] [id number] May, Dental examination Z01.20 and Dental caries K02.9 [facility] [address] [place] [address] 96180- 1517 May, Bipolar 2 disorder F31.81 ; PTSD (post-traumatic stress disorder) F43.10 and Panic disorder with agoraphobia F40.01 [facility] [address] [address] May, Lumbago with sciatica, right side M54.41 ; Other chronic pain G89.29 and Uncontrolled type 2 diabetes mellitus without complication, without long-term current use of insulin E11.65 [facility] [address] [address] 5140 May, Chronic bronchitis, unspecified chronic bronchitis type J42 [facility] [id number] [place] [address] 49812- 4386 May, [address] 31503- 0767 May, [place] [id number] [place] [address] 65049- 4991 May, Chest pain, unspecified type R07.9 ; Tobacco use Z72.0 ; Type 2 diabetes mellitus without complications E11.9 ; Essential hypertension I10 ; Hyperlipidemia, unspecified hyperlipidemia type E78.5 ; Obesity (BMI 30- 39.9) E66.9 ; History of hypothyroidism Z86.39 ; Chronic obstructive pulmonary disease, unspecified COPD type J44.9 ; Anxiety F41.9 ; Bilateral claudication of lower limb I73.9 and Bipolar 2 disorder F31.81 [address] [place] 49939- 6084 May, Bipolar 2 disorder F31.81 ; Panic disorder with agoraphobia F40.01 and Tobacco abuse Z72.0 [address] [address] 95512- 2588 Apr, [place] [address] 95106- 7815 Apr, [place] [id number] [place] [address] 38782- 8743 Apr, [place] [id number] [place] [address] 39731- 8164 Apr, Bipolar 2 disorder F31.81 ; Panic disorder with agoraphobia F40.01 and PTSD (post-traumatic stress disorder) F43.10 [address] 25212- 4128 Apr, Chronic bronchitis, unspecified chronic bronchitis type J42 ; Cervical neuritis M54.12 and Thoracic neuritis M54.[address] 66236- 6805 Apr, [place] [id number] [place] [address] 98807- 3019 15 Apr, 2016 Cervicalgia M54.2 [place] [id number] [place] [address] 68794- 8445 14 Apr, 2016 Bipolar 2 disorder F31.81 ; Panic disorder with agoraphobia F40.01 and PTSD (post-traumatic stress disorder) F43.10 [facility] [id number] [place] [address] 45748 -2447 13 Apr, 2016 [facility] [id number] [place] [address] 69504 -9497 09 Apr, 2016 Cough R05 and Tobacco dependence F17.200 [place] [id number] [place] [address] 35084- 7089 06 Apr, 2016 [place] [id number] [place] [address] 21771- 7110 Apr, [place] [id number] [place] [address] 22399- 3693 March, Bipolar 2 disorder F31.81 ; Panic disorder with agoraphobia F40.01 and Generalized anxiety disorder F41.1 [place] [id number] [place] [address] 51125- 9847 March, Closed displaced fracture of fifth metatarsal bone of right foot with routine healing, subsequent encounter S92.351D [id number] [place] [address] 68047- 7248 March, Bronchitis J40 [address] [id number] [place] [address] 68386- 6481 March, [place] [id number] [place] [address] 19126- 6640 March, [id number] [place] [address] 51825- 5084 March, Foot pain, right M79.671 ; Cervicalgia M54.2 and 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 mellitus without complication, unspecified [facility] insulin use status E11.9 [address] [place] [place] [address] 86697- 2778 March, Fracture of fifth metatarsal bone of right foot S92.351A [id number] [place] [address] 00143- 6120 March, [address] [place] 93037- 1442 Jan, Fracture of fifth metatarsal bone of right foot S92.351A [id number] [place] [address] 23536- 2639 Jan, Bipolar 2 disorder F31.81 ; PTSD (post-traumatic stress disorder) F43.10 ; Panic disorder with agoraphobia F40.01 and Epilepsy G40.909 [id number] [place] [address] 70421- 0041 Jan, History of WI (myocardial infarction) I25.2 and History of high cholesterol Z86.39 [place] [id number] [place] [address] 86297- 2624 Jan, Bipolar 2 disorder F31.81 ; Panic disorder with agoraphobia F40.01 ; Tobacco abuse Z72.0 and PTSD (post-traumatic stress disorder) F43.10 [address] [place] [address] 35531- 1117 Jan, Fracture of fifth metatarsal bone of right foot S92.351A [address] [place] [place] [address] 31967- 6115 Jan, [place] [id number] [place] [address] 94297- 9813 Jan, History of high cholesterol Z86.39 [address] [place] [address] 23088- 4375 Jan, History of [place] (myocardial infarction) I25.2 [place] [id number] [place] [address] 92810- 9793 Jan, [facility] [address] 53788- 3728 Dec, Back pain M54.9 ; Diabetes E11.9 ; Right knee pain M25.561 and Chest pain R07.9 [address] 70387- 0730 Dec, [facility] [address] 63280- 7813 Dec, [address] 71912- 3701 Dec, Cervicalgia M54.2 [address] [place] 21405- 1798 Dec, Bipolar 2 disorder F31.81 ; PTSD (post-traumatic stress disorder) F43.10 ; Panic disorder with agoraphobia F40.01 and Epilepsy G40.909 [place] [id number] [place] [address] 12462- 8411 Dec, Bipolar 2 disorder F31.81 ; PTSD (post-traumatic stress disorder) F43.10 and Panic disorder with agoraphobia F40.01 [place] [id number] [place] [address] 86463- 2247 Dec, Diabetes E11.9 [id number] [place] [address] 27312- 0338 Dec, [facility] [id number] [place] [address] 50273- 9724 Dec, Other chronic pain G89.29 ; Hepatitis C B19.20 and History of seizures Z87.898 [place] [id number] [place] [address] 40927- 8507 Dec, [address] 42912- 2082 Dec, Bipolar 2 disorder F31.81 and Other chronic pain G89.29 [facility] [id number] [place] [address] 37494- 9770 Dec, Cervicalgia M54.2 and Diabetes E11.9 [facility] [address] 01850- 0895 Dec, [facility] [address] 71257- 0933 Dec, [facility] [address] 98028- 3650 Dec, [facility] [address] 68315- 2759 Dec, [facility] [id number] [place] [address] 35326- 7468 Dec, Type 2 diabetes mellitus without complications E11.9 [facility] [id number] [place] [address] 84226- 4711 Dec, [facility] [address] 16987- 6473 Dec, History of seizures Z87.898 and Hepatitis C B19.20 [facility] [id number] [place] [address] 89387- 8135 Dec, Hepatitis C B19.20 [facility] [id number] [place] [address] 10868- 5633 Dec, [facility] [id number] [place] [address] 74190- 1997 Dec, Cervicalgia M54.2 ; COPD (chronic obstructive pulmonary disease) J44.9 and Hepatitis C B19.20 [facility] [id number] [place] [address] 31073- 6751 Dec, Bipolar 2 disorder F31.81 ; History of hypertension Z86.79 ; History of anxiety Z86.59 ; Panic disorder with agoraphobia F40.01 and Epilepsy G40.909 [id number] [place] [address] 79980- 7882 Nov, [id number] [place] [address] 26916- 1594 Nov, [address] 69813- 5644 Nov, History of seizures Z87.898 ; OAB (overactive bladder) N32.81 ; Lumbago M54.5 ; Other chronic pain G89.29 ; Cervicalgia M54.2 ; Tobacco abuse Z72.0 ; Tobacco abuse counseling Z71.6 and Impaired fasting glucose R73.[address] 42983- 2572 Nov, Bipolar 2 disorder F31.81 ; PTSD (post-traumatic stress disorder) F43.10 ; History of anxiety Z86.59 ; History of COPD Z87.09 ; Panic disorder with agoraphobia F40.01 and Moderate depressed bipolar I disorder F31.32 [id number] [place] [address] 71067- 2690 12 Nov, 2015 PTSD (post-traumatic stress disorder) F43.10 [facility] [id number] [place] [address] [id number] 11 Nov, 2015 Dental examination Z01.20 and Dental caries K02.9 [id number] [place] [address] 67197- 3788 08 Nov, 2015 History of hypertension Z86.79 ; History of hypothyroidism Z86.39 ; History of high cholesterol Z86.39 ; History of COPD Z87.09 and Overactive bladder N32.81 [id number] [place] [address] 84729- 9025 Nov, Bipolar 2 disorder F31.81 and PTSD (post-traumatic stress disorder) F43.[id number] [place] [address] 44987- 0772 Nov, PTSD (post-traumatic stress disorder) F43.10 ; Panic disorder with agoraphobia F40.01 ; Epilepsy G40.909 and Moderate depressed bipolar I disorder F31.32 [id number] [place] [address] 21433- 5460 Nov, [place] [id number] [place] [address] 14135- 0349 Nov, [id number] [place] [address] 42309- 7366 Oct, [id number] [place] [address] 26631- 6986 Oct, Generalized anxiety disorder F41.1 ; Major depression, recurrent F33.9 and PTSD (post-traumatic stress disorder) F43.10 [id number] [place] [address] 10242- 3527 Oct, Elevated fasting glucose R73.01 [id number] [place] [address] 74057- 2655 Oct, Elevated fasting glucose R73.01 [id number] [place] [address] 16068- 3635 Oct, History of COPD Z87.09 [id number] [place] [address] 52425- 0041 Oct, General medical exam Z00.00 ; History of hypertension Z86.79 ; History of hypothyroidism Z86.39 ; History of hepatitis Z86.19 ; History of high cholesterol Z86.39 and History of seizures Z87.898 [id number] [place] [address] 13189- 0123 10 Oct, 2015 General medical exam Z00.00 ; History of hypertension Z86.79 ; History of hypothyroidism Z86.39 ; Bipolar 2 disorder F31.81 ; PTSD ( post-traumatic stress disorder) F43.10 ; History of hepatitis Z86.19 ; History of high cholesterol Z86.39 ; History of anxiety Z86.59 ; History of seizures Z87.898 ; History of [place] (myocardial infarction) I25.2 and History of COPD Z87.09 [facility] [address] [address]- 4151 Oct, Generalized anxiety disorder F41.1 ; Depression F32.9 and PTSD (post-traumatic stress disorder) F43.10 [facility] [address] [place] [address] 24810- 3291 Jan, [facility] [id number] [place] [address] 12683- 1809 Jan, [facility] [id number] [place] [address] 17096- 2201 Jun, [address] [id number] Jun, [facility] [id number] [place] [address] 96865- 7185 May, [facility] [id number] [place] [address] 00345- 5131 May, [address] [id number] May, [facility] [address] [place] [address] 42711- 5304 May, [address] [id number] May, [facility] [address] [address]- 2949 May, IMMUNIZATIONS No Known Immunizations SOCIAL HISTORY Never Assessed REASON FOR VISIT BS f/u attempt PLAN OF CARE VITAL SIGNS MEDICATIONS Unknown [...] Medical History diabites II Surgical History tonsillectomy 1986 Surgical History partial hysterectomy 2004 Surgical History appendectomy 2004 Hospitalization History Surgery(s) only Hospitalization History pneumonia x3 days Hospitalization History Heart cath with stint 05/15/2016 Hospitalization History Diverticulitis, N/V-[facility] 01/28/17
--- OUTSIDE RECORDS SUMMARY | 2019-01-26 07:29 | XMS REPORT ---
Author Author GERARDO [facility] Address [address] [place] [address] Care Team Providers Care Gluing Machine Operator Name Role Phone MARGI GERARDO Unavailable PROBLEMS Type Condition ICD9-CM Code THL31-XN Code Onset Dates Condition Status SNOMED Code Problem OAB (overactive bladder) N32.81 Active 263539379 Problem Epilepsy G40.909 Active 67666662 Problem Cervicalgia M54.2 Active 70777021 Problem Other chronic pain G89.29 Active 96485043 Problem Tobacco abuse Z72.0 Active 56279455 Problem Lumbago M54.5 Active 468022786 Problem Hepatitis C B19.20 Active 04491532 Problem COPD (chronic obstructive pulmonary disease) J44.9 Active 84722097 Problem Diabetes E11.9 Active 31357742 Problem Bipolar I disorder with duy F31.10 Active 29724897 Problem Type 2 diabetes mellitus without complications E11.9 Active 062298368 Problem Stress incontinence of urine N39.3 Active 16045478 Problem Bilateral claudication of lower limb I73.9 Active 138690805 Problem Seasonal allergic rhinitis due to other allergic trigger J30.89 Active 418712857 Problem Hyperlipidemia, unspecified hyperlipidemia type E78.5 Active 63641367 Problem Hypertension, unspecified type I10 Active 03400733 Problem Chronic tension-type headache, not intractable G44.229 Active 007612328 Problem 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 mellitus without complication, without long -term current use of insulin E11.9 Active 903566427 Problem Type 2 diabetes mellitus with hyperglycemia E11.65 Active 810970103 Problem Chronic post-traumatic stress disorder (PTSD) F43.12 Active 129060896 Problem History of hypothyroidism Z86.39 Active 751683038 Problem Hypoglycemia E16.2 Active 676121997 Problem El's esophageal ulceration K22.10 Active 873988827 Problem Bipolar affective disorder, currently depressed, mild F31.31 Active 868266596 Problem Irritable bowel syndrome with diarrhea K58.0 Active 474363611 Problem Stress incontinence N39.3 Active 43666900 Problem History of hypertension Z86.79 Active 464498794 Problem Uncontrolled type 2 diabetes mellitus without complication, without long-term current use of insulin E11.65 Active 763553587 Problem Panic disorder with agoraphobia F40.01 Active 03626999 Problem Type 2 diabetes mellitus with hyperglycemia E11.65 Active 037973752 Problem History of seizures Z87.898 Active 309226227 Problem custodial current use of insulin Z79.4 Active 994594507 Problem History of MD (myocardial infarction) I25.2 Active 645929385 Problem Mood disorder F39 Active 17002797 Problem Bipolar 2 disorder F31.81 Active 60516773 Problem Gastritis and duodenitis K29.90 Active 676285865 Problem History of high cholesterol Z86.39 Active 996430844 Problem Bipolar I disorder with mood-congruent psychotic features F31.9 Active 607992008 Problem Hypertension, benign I10 Active 36641960 Problem Primary insomnia F51.01 Active 3431559 ALLERGIES No Information ENCOUNTERS Encounter Location Date Diagnosis [facility] [id number] [place] [address] 89939- 9796 Jul, [facility] [address] 90918- 2441 Jul, [facility] [id number] [place] [address] 65101- 4519 Jun, [facility] [id number] [place] [address] 88553- 3015 Jun, [facility] [id number] [place] [address] 62050- 9794 Jun, Lumbago M54.5 [facility] [address] 46825- 2521 Jun, Type 2 diabetes mellitus with hyperglycemia E11.65 [facility] [id number] [place] [address] 95586- 8184 Jun, [facility] [address] 26811- 9193 Jun, Type 2 diabetes mellitus with hyperglycemia E11.65 ; El 's esophageal ulceration K22.10 and Lumbago M54.5 [facility] [id number] [place] [address] 83830- 2837 Jun, Type 2 diabetes mellitus with hyperglycemia E11.65 [facility] [id number] [place] [address] 43840- 2776 Jun, [facility] [id number] [place] [address] 20609- 1108 Jun, [facility] [id number] [place] [address] 91281- 6608 Jun, Bipolar affective disorder, currently depressed, mild F31.31 ; Chronic post-traumatic stress disorder (PTSD) F43.12 and Panic disorder with agoraphobia F40.01 [facility] [id number] [place] [address] 76201- 9729 Jun, [facility] [id number] [place] [address] 43916- 4103 Jun, [facility] [id number] [place] [address] 13542- 2589 Jun, Type 2 diabetes mellitus with hyperglycemia E11.65 [facility] [id number] [place] [address] 04664- 4923 Jun, Uncontrolled type 2 diabetes mellitus with hyperglycemia E11.65 [facility] [id number] [place] [address] 68862- 6542 Jun, [facility] [address] [place] [address] 8759 May, Lumbago M54.5 [facility] [address] [address] May, [facility] [address] [place] [address]- 3786 May, [facility] [address] [address]- 4041 May, [facility] [address], [place] [address]- 8320 May, [facility] [address], [place] [address]- 7934 May, [facility] [address] [place] [address] 98807- 3336 May, [facility] [id number] [place] [address] 75576- 5874 May, [facility] [address] [place] [address] 16949- 0644 May, Lumbago M54.5 [facility] [address] [place] [address] 85652- 2905 May, [facility] [id number] [place] [address] 36846- [address] Apr, [address] of the chest R93.8 [facility] [address], [place] [address]- 2558 Apr, Bipolar 2 disorder F31.81 ; Chronic post-traumatic stress disorder (PTSD) F43.12 and Panic disorder with agoraphobia F40.01 [facility] [address], [place] [address]- [address] Apr, [address] of the chest R93.8 [facility] [address], [place] [address]- [address] Apr, [address] of the chest R93.8 [facility] [address] [place] [address] 94010- 6490 Apr, [facility] [address], [place] [address]- 7500 Apr, Type 2 diabetes mellitus with hyperglycemia E11.65 [facility] [id number] [place] [address] 77655- 2642 Apr, 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 mellitus without complication, without long-term current use of insulin E11.9 ; Watery eyes H04.203 ; Low back pain M54.5 ; Other chronic pain G89.29 ; Chronic tension-type headache, not intractable G44.229 ; Uncontrolled type 2 diabetes mellitus without complication , without long-term current use of insulin E11.65 and Bronchitis J40 [facility] [id number] [place] [address] 15183- 1162 Apr, [facility] [id number] [place] [address] 50595- 0516 Apr, Lumbago M54.5 [facility] [id number] [place] [address] 91135- 3887 March, [facility] [id number] [place] [address] 10224 -6099 March, Cough R05 ; Pneumonia due to infectious organism, unspecified laterality, unspecified part of lung J18.9 and Non-intractable vomiting with nausea, unspecified vomiting type R11.2 [facility] [id number] [place] [address] 76434- 7690 March, Bronchitis J40 [facility] [id number] [place] [address] 42919- 3167 March, [facility] [id number] [place] [address] 11525- 8567 March, El's esophageal ulceration K22.10 and Type 2 diabetes mellitus with hyperglycemia E11.65 [facility] [id number] [place] [address] 24234- 7302 March, Panic disorder with agoraphobia F40.01 ; Chronic post- traumatic stress disorder (PTSD) F43.12 and Bipolar 2 disorder F31.81 [facility] [id number] [place] [address] 16833- 8113 March, Type 2 diabetes mellitus with hyperglycemia E11.65 [facility] [address] [address]- 2046 March, [facility] [id number] [place] [address] 70666- 9269 March, Lumbago M54.5 [facility] [id number] [place] [address] 75786- 6040 March, [facility] [id number] [place] [address] 37335- 1941 March, Irritable bowel syndrome with diarrhea K58.0 ; Primary insomnia F51.01 ; Type 2 diabetes mellitus with hyperglycemia E11.65 and custodial current use of insulin Z79.4 [facility] [id number] [place] [address] 84009- 9236 March, [facility] [id number] [place] [address] 14512- 1332 Jan, [facility] [id number] [place] [address] 23316- 7121 Jan, [facility] [id number] [place] [address] 71776- 7799 Jan, [facility] [id number] [place] [address] 77807- 0471 Jan, [facility] [id number] [place] [address] 56729- 1618 Jan, Dizziness R42 [facility] [id number] [place] [address] 76801- 6527 Jan, Bipolar affective disorder, currently depressed, mild F31.31 ; Panic disorder with agoraphobia F40.01 and Chronic post-traumatic stress disorder (PTSD) F43.12 [facility] [id number] [place] [address] 63214- 0955 Jan, Dizziness R42 [facility] [id number] [place] [address] 72057- 4289 Jan, Chest pain, unspecified type R07.9 ; Exertional dyspnea R06.09 ; Hypertension, unspecified type I10 and Hyperlipidemia, unspecified hyperlipidemia type E78.5 [facility] [id number] [place] [address] 39708- 2114 Jan, [facility] [id number] [place] [address] 48221- 1204 Jan, Lumbago M54.5 [facility] [id number] [place] [address] 67688- 5609 Jan, El's esophageal ulceration K22.10 ; Blister (nonthermal ) of oral cavity, initial encounter S00.522A ; Local infection of the skin and subcutaneous tissue, unspecified L08.9 ; Type 2 diabetes mellitus with hyperglycemia E11.65 ; 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 and Stress incontinence N39.3 [facility] [id number] [place] [address] 85955- 8938 Dec, [facility] [id number] [place] [address] 59577- 7971 27 Dec, 2017 [facility] [id number] [place] [address] 29062- 7795 19 Dec, 2017 [facility] [id number] [place] [address] [id number] 16 Dec, 2017 Dental examination Z01.20 [facility] [id number] [place] [address] 85715- 2165 15 Dec, 2017 Acute pain of right knee M25.561 [facility] [id number] [place] [address] 42336- 4035 14 Dec, 2017 [facility] [id number] [place] [address] 57166- 2119 Dec, [facility] [address] [place] [address] 90243- 5251 14 Dec, 2017 Lumbago M54.5 ; Acute pain of right knee M25.561 and Seasonal allergic rhinitis due to other allergic trigger J30.89 [facility] [address], [place] [address]- 9409 Dec, Type 2 diabetes mellitus with hyperglycemia E11.65 [facility] [id number] [place] [address] 65161- 4720 Dec, [facility] [id number] [place] [address] 25406- 9203 Dec, [facility] [id number] [place] [address] 68859- 6378 Dec, [facility] [id number] [place] [address] 97373- 4459 Dec, [facility] [id number] [place] [address] 99452- 3759 Dec, Chronic post-traumatic stress disorder (PTSD) F43.12 and Panic disorder with agoraphobia F40.01 [facility] [id number] [place] [address] 98884- 9905 13 Dec, 2017 Low back pain M54.5 [facility] [id number] [place] [address] 87057- 3410 12 Dec, 2017 Type 2 diabetes mellitus with hyperglycemia E11.65 ; custodial current use of insulin Z79.4 ; Low back pain M54.5 ; Other chronic pain G89.29 and Encounter for therapeutic drug level monitoring Z51.81 [facility] [id number] [place] [address] 60361- 7626 09 Dec, 2017 Coughing R05 [facility] [id number] [place] [address] 22908- 7747 Dec, [facility] [id number] [place] [address] [id number] Dec, 2017 Dental examination Z01.20 [facility] [id number] [place] [address] 53877- 9773 Nov, Type 2 diabetes mellitus without complications E11.9 and Encounter for therapeutic drug level monitoring Z51.81 [facility] [address], [place] [address]- 8035 Nov, [facility] [id number] [place] [address] 50169- 0839 Oct, Type 2 diabetes mellitus without complications E11.9 [facility] [id number] [place] [address] 32452- 6325 Oct, Type 2 diabetes mellitus with hyperglycemia E11.65 [facility] [id number] [place] [address] 70524- 9814 Aug, Type 2 diabetes mellitus without complications E11.9 [facility] [id number] [place] [address] 48346- 8763 Aug, Type 2 diabetes mellitus without complications E11.9 ; Hypoglycemia E16.2 ; Lumbago M54.5 ; Stress incontinence of urine N39.3 and History of MD (myocardial infarction) I25.2 [facility] [address] [place] [address] 84845- 0297 Jun, [facility] [id number] [place] [address] 74258- 0136 May, [facility] [id number] [place] [address] 59420- 8909 Apr, Panic disorder with agoraphobia F40.01 [facility] [id number] [place] [address] 15111- 7074 Apr, Panic disorder with agoraphobia F40.01 [facility] [address], [place] [address]- 5771 Apr, [facility] [id number] [place] [address] 46534- 3245 March, Other chronic pain G89.29 [facility] [id number] [place] [address] 90404- 2103 March, [facility] [address], [place] [address]- 1236 March, [facility] [address], [place] [address]- 4517 March, [facility] [address], [place] [address]- 7898 March, [facility] [id number] [place] [address] 15472- 5681 March, Type 2 diabetes mellitus without complications E11.9 [facility] [address], [place] [address]- 8298 March, Diarrhea, unspecified type R19.7 [facility] [address], [place] [address]- 8733 March, Bipolar 2 disorder F31.81 ; Chronic post-traumatic stress disorder (PTSD) F43.12 and Type 2 diabetes mellitus with hyperglycemia E11.65 [facility] [address], [place] [address]- 6578 March, [facility] [address], [place] [address]- 3083 March, [facility] [address], [place] [address]- 1832 March, Hypertension, benign I10 ; Type 2 diabetes mellitus with hyperglycemia E11.65 ; Hepatitis C B19.20 ; Gastritis and duodenitis K29.90 and Dysuria R30.0 [facility] [id number], [place] [address]- 5284 March, Hypertension, benign I10 ; Type 2 diabetes mellitus with hyperglycemia E11.65 ; Hepatitis C B19.20 ; Gastritis and duodenitis K29.90 and Dysuria R30.0 [facility] [address], [place] [address]- 1182 March, Panic disorder with agoraphobia F40.01 ; Chronic post- traumatic stress disorder (PTSD) F43.12 ; Epilepsy G40.909 and Bipolar I disorder with mood-congruent psychotic features F31.9 [facility] [address] [place] [address] 09503- 4776 March, [facility] [id number] [place] [address] 34495129- 2656 March, Type 2 diabetes mellitus with hyperglycemia E11.65 [facility] [id number] [place] [address] 76659- 3106 18 Jan, 2017 Bipolar I disorder with duy F31.10 [facility] [id number] [place] [address] 73797- 4652 17 Jan, 2017 Bipolar 2 disorder F31.81 ; Chronic post-traumatic stress disorder (PTSD) F43.12 and Type 2 diabetes mellitus with hyperglycemia E11.65 [facility] [id number] [place] [address] 11843- 1332 17 Jan, 2017 [facility] [id number] [place] [address] 73488- 0775 Jan, [facility] [id number] [place] [address] 97352- 2717 14 Jan, 2017 Panic disorder with agoraphobia F40.01 [facility] [address] [place] [address] 92072- 5243 13 Jan, 2017 Panic disorder with agoraphobia F40.01 ; Bipolar I disorder with mood-congruent psychotic features F31.9 ; Chronic post-traumatic stress disorder (PTSD) F43.12 and Epilepsy G40.909 [facility] [address], [place] [address]- 4346 Jan, [facility] [id number] [place] [address] 70146- 2527 Jan, [facility] [address] [place] [address] 35363- 0034 10 Jan, 2017 Type 2 diabetes mellitus without complications E11.9 and Hypoglycemia E16.2 [facility] [address], [place] [address]- 1479 Jan, Type 2 diabetes mellitus without complications E11.9 ; Primary insomnia F51.01 and Hypertension, benign I10 [facility] [address], [place] [address]- 8374 Jan, [facility] [id number] [place] [address] [id number] Jan, [facility] [id number] [place] [address] 10005- 5936 Dec, Type 2 diabetes mellitus with hyperglycemia E11.65 [facility] [id number] [place] [address] 20183- 9730 Dec, [facility] [id number] [place] [address] 53593- 0660 Dec, Bipolar 2 disorder F31.81 ; Panic disorder with agoraphobia F40.01 ; Chronic post-traumatic stress disorder (PTSD) F43.12 and Epilepsy G40.909 [facility] [address], [place] [address]- 1451 Dec, [facility] [id number] [place] [address] 61994- 8516 Dec, [facility] [address], [place] [address]- 7462 Dec, Bipolar 2 disorder F31.81 ; Panic disorder with agoraphobia F40.01 ; Chronic post-traumatic stress disorder (PTSD) F43.12 and Epilepsy G40.909 [facility] [address], [place] [address]- 3483 Dec, [facility] [id number] [place] [address] 27358- 7563 Dec, [facility] [address], [place] [address]- 7867 Dec, [facility] [id number] [place] [address] 72596- 7974 Dec, Type 2 diabetes mellitus with hyperglycemia E11.65 ; 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 and Lumbago M54.5 [facility] [address] 65241- 0530 Dec, [facility] [address] 14714- 7339 Dec, [facility] [address] 72224- 2570 Dec, [facility] [address] 78687 -7339 Dec, Pain of left leg M79.605 and Pain in right leg M79.604 [facility] [address] 70539- 0704 Dec, [facility] [address] 32421- 4094 Dec, Type 2 diabetes mellitus with hyperglycemia E11.65 [facility] [address] 74446- 3082 Dec, [facility] [id number] [place] [address] 65538- 9011 Dec, Type 2 diabetes mellitus with hyperglycemia E11.65 ; 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 ; Vagina, candidiasis B37.3 and Other chronic pain G89.29 [facility] [id number] [place] [address] 68226- 9213 Nov, Panic disorder with agoraphobia F40.01 [facility] [address] 93618- 5937 Nov, [facility] [id number] [place] [address] 25323- 9171 Nov, [facility] [address] 28020- 3838 Nov, Hypoglycemia E16.2 [facility] [address], [place] [address]- 9411 Nov, [facility] [address], [place] [address]- 4372 Nov, [facility] [address] [place] [address] 04853- 5002 Nov, [facility] [address] [place] [address] 20378- 7793 Nov, Type 2 diabetes mellitus with hyperglycemia E11.65 and custodial current use of insulin Z79.4 [facility] [address] [place] [address] 14679- 0784 Nov, Panic disorder with agoraphobia F40.01 ; Bipolar 2 disorder F31.81 ; Chronic post-traumatic stress disorder (PTSD) F43.12 and Epilepsy G40.909 [facility] [address], [place] [address]- 3480 Nov, Panic disorder with agoraphobia F40.01 [facility] [address] [place] [address] 53862- 9058 Oct, [facility] [address], [place] [address]- 6164 Oct, [facility] [address] [place] [address] 43189- 3639 Oct, Bipolar 2 disorder F31.81 ; Panic disorder with agoraphobia F40.01 and Mood disorder F39 [facility] [address] [place] [address] 88074- 8590 Oct, Diabetes E11.9 ; Type 2 diabetes mellitus with hyperglycemia E11.65 and 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 [facility] [address], [place] [address]- 2928 Oct, [facility] [address], [place] [address]- 4689 Sep, [facility] [id number] [place] [address] 30422- 8667 Sep, Bipolar 2 disorder F31.81 and Mood disorder F39 [facility] [id number] [place] [address] 56529- 5827 Sep, [facility] [id number] [place] [address] 38916- 3754 Sep, Uncontrolled type 2 diabetes mellitus without complication, without long-term current use of insulin E11.65 [facility] [id number] [place] [address] 82052- 3316 Sep, [facility] [id number] [place] [address] 69685- 7691 Sep, [facility] [id number] [place] [address] 95635- 1555 Sep, [facility] [id number] [place] [address] 73089- 2464 Sep, [facility] [id number] [place] [address] 83144- 7118 Sep, Bipolar 2 disorder F31.81 ; Chronic post-traumatic stress disorder (PTSD) F43.12 ; Panic disorder with agoraphobia F40.01 and Epilepsy G40.909 [facility] [id number] [place] [address] 56344- 6978 Sep, Bipolar 2 disorder F31.81 ; PTSD (post-traumatic stress disorder) F43.10 and Panic disorder with agoraphobia F40.01 [facility] [id number] [place] [address] 51618- 1970 07 Sep, 2016 [facility] [id number] [place] [address] 12457- 5167 28 Aug, 2016 History of seizures Z87.898 ; Panic disorder with agoraphobia F40.01 and Bipolar 2 disorder F31.81 [facility] [id number] [address] 6920 19 Aug, 2016 [facility] [id number] [place] [address] 52552- 8356 17 Aug, 2016 [facility] [id number] [place] [address] 36349- 3821 Aug, [facility] [address] 71384- 4254 Aug, [facility] [id number] [place] [address] 35669- 7791 Aug, [facility] [address] 71887- 0107 Aug, [facility] [address] 58508- 1695 Aug, Hypoglycemia E16.2 and Bilateral impacted cerumen H61.23 [facility] [id number] [place] [address] 96919- 1818 Aug, [facility] [id number] [place] [address] 04136- 9326 21 Jul, 2016 [facility] [id number] [place] [address] 04515- 9616 Jul, [facility] [id number] [place] [address] 82643- 3246 15 Jul, 2016 Bipolar 2 disorder F31.81 ; Panic disorder with agoraphobia F40.01 ; PTSD (post-traumatic stress disorder) F43.10 and Epilepsy G40.909 [facility] [id number] [place] [address] 60002- 4743 12 Jul, 2016 [facility] [id number] [place] [address] 60859- 2671 09 Jul, 2016 Type 2 diabetes mellitus without complications E11.9 and Coughing R05 [facility] [address] [place] [address] 0268 Jul, [facility] [id number] [place] [address] 85526- 4982 Jun, [facility] [id number] [place] [address] 74776- 4171 Jun, Bipolar 2 disorder F31.81 ; PTSD (post-traumatic stress disorder) F43.10 and Panic disorder with agoraphobia F40.01 [facility] [id number] [place] [address] 94036- 2995 Jun, [facility] [id number] [place] [address] 39763- 3679 Jun, [facility] [id number] [place] [address] 48310- 2561 Jun, [facility] [id number] [place] [address] 60787- 0592 Jun, Type 2 diabetes mellitus without complications E11.9 and COPD (chronic obstructive pulmonary disease) J44.9 [facility] [address] [place] [address] [id number] May, Dental examination Z01.20 and Dental caries K02.9 [facility] [id number] [place] [address] 06886- 4663 May, Bipolar 2 disorder F31.81 ; PTSD (post-traumatic stress disorder) F43.10 and Panic disorder with agoraphobia F40.01 [facility] [address] [address]- 6483 May, Lumbago with sciatica, right side M54.41 ; Other chronic pain G89.29 and Uncontrolled type 2 diabetes mellitus without complication, without long-term current use of insulin E11.65 [facility] [address] [address]- 3263 May, Chronic bronchitis, unspecified chronic bronchitis type J42 [facility] [id number] [place] [address] 05582- 1025 May, [facility] [address] 28372- 7543 May, [facility] [id number] [place] [address] 53213- 5158 May, Chest pain, unspecified type R07.9 ; Tobacco use Z72.0 ; Type 2 diabetes mellitus without complications E11.9 ; Essential hypertension I10 ; Hyperlipidemia, unspecified hyperlipidemia type E78.5 ; Obesity (BMI 30- 39.9) E66.9 ; History of hypothyroidism Z86.39 ; Chronic obstructive pulmonary disease, unspecified COPD type J44.9 ; Anxiety F41.9 ; Bilateral claudication of lower limb I73.9 and Bipolar 2 disorder F31.81 [facility] [address] 99854- 8013 May, Bipolar 2 disorder F31.81 ; Panic disorder with agoraphobia F40.01 and Tobacco abuse Z72.0 [facility] [address] 83410- 7786 Apr, [facility] [address] 45729- 9865 Apr, [facility] [id number] [place] [address] 46089- 1576 Apr, [facility] [id number] [place] [address] 60211- 7090 Apr, Bipolar 2 disorder F31.81 ; Panic disorder with agoraphobia F40.01 and PTSD (post-traumatic stress disorder) F43.10 [facility] [address] 13613- 7144 Apr, Chronic bronchitis, unspecified chronic bronchitis type J42 ; Cervical neuritis M54.12 and Thoracic neuritis M54.[address] 50393- 1090 Apr, [facility] [id number] [place] [address] 47764- 1990 15 Apr, 2016 Cervicalgia M54.2 [facility] [id number] [place] [address] 60449- 6295 14 Apr, 2016 Bipolar 2 disorder F31.81 ; Panic disorder with agoraphobia F40.01 and PTSD (post-traumatic stress disorder) F43.10 [facility] [id number] [place] [address] 43513 -6922 13 Apr, 2016 [facility] [id number] [place] [address] 84470 -5237 09 Apr, 2016 Cough R05 and Tobacco dependence F17.200 [facility] [id number] [place] [address] 20533- 9814 06 Apr, 2016 [facility] [id number] [place] [address] 40713- 5004 Apr, [facility] [id number] [place] [address] 52777- 6832 March, Bipolar 2 disorder F31.81 ; Panic disorder with agoraphobia F40.01 and Generalized anxiety disorder F41.1 [facility] [id number] [place] [address] 13907- 2655 March, Closed displaced fracture of fifth metatarsal bone of right foot with routine healing, subsequent encounter S92.351D [facility] [id number] [place] [address] 61788- 5874 March, Bronchitis J40 [facility] [id number] [place] [address] 17756- 6964 March, [facility] [id number] [place] [address] 13924- 7929 March, [facility] [id number] [place] [address] 99466- 0018 March, Foot pain, right M79.671 ; Cervicalgia M54.2 and 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 mellitus without complication, unspecified half-way insulin use status E11.9 [facility] [address] [place] [address] 91677- 5193 March, Fracture of fifth metatarsal bone of right foot S92.351A [facility] [id number] [place] [address] 06899- 4380 March, [facility] [address] 23942- 6534 Jan, Fracture of fifth metatarsal bone of right foot S92.351A [facility] [id number] [place] [address] 79614- 8114 Jan, Bipolar 2 disorder F31.81 ; PTSD (post-traumatic stress disorder) F43.10 ; Panic disorder with agoraphobia F40.01 and Epilepsy G40.909 [facility] [id number] [place] [address] 31351- 8164 Jan, History of MD (myocardial infarction) I25.2 and History of high cholesterol Z86.39 [facility] [id number] [place] [address] 97749- 5883 Jan, Bipolar 2 disorder F31.81 ; Panic disorder with agoraphobia F40.01 ; Tobacco abuse Z72.0 and PTSD (post-traumatic stress disorder) F43.10 [facility] [address] [place] [address] 21133- 6589 Jan, Fracture of fifth metatarsal bone of right foot S92.351A [facility] [address] [place] [address] 23293- 1973 Jan, [facility] [id number] [place] [address] 38844- 6223 Jan, History of high cholesterol Z86.39 [facility] [id number] [place] [address] 15446- 3966 Jan, History of MD (myocardial infarction) I25.2 [facility] [id number] [place] [address] 92123- 9834 Jan, [facility] [address] 45414- 9455 Dec, Back pain M54.9 ; Diabetes E11.9 ; Right knee pain M25.561 and Chest pain R07.9 [facility] [address] 50052- 2049 Dec, [facility] [address] 70484- 5682 Dec, [facility] [address] 52626- 5062 Dec, Cervicalgia M54.2 [facility] [address] 08470- 3266 Dec, Bipolar 2 disorder F31.81 ; PTSD (post-traumatic stress disorder) F43.10 ; Panic disorder with agoraphobia F40.01 and Epilepsy G40.909 [facility] [id number] [place] [address] 99111- 3450 Dec, Bipolar 2 disorder F31.81 ; PTSD (post-traumatic stress disorder) F43.10 and Panic disorder with agoraphobia F40.01 [facility] [id number] [place] [address] 51437- 3889 Dec, Diabetes E11.9 [facility] [id number] [place] [address] 42445- 0921 Dec, [facility] [id number] [place] [address] 82711- 6324 Dec, Other chronic pain G89.29 ; Hepatitis C B19.20 and History of seizures Z87.898 [facility] [id number] [place] [address] 77147- 1337 Dec, [facility] [address] 35302- 6493 Dec, Bipolar 2 disorder F31.81 and Other chronic pain G89.29 [facility] [id number] [place] [address] 50672- 2901 Dec, Cervicalgia M54.2 and Diabetes E11.9 [facility] [address] 39571- 3637 Dec, [facility] [address] 07211- 0830 Dec, [facility] [address] 44592- 0207 Dec, [facility] [address] 28943- 2433 Dec, [facility] [id number] [place] [address] 85396- 1338 Dec, Type 2 diabetes mellitus without complications E11.9 [facility] [id number] [place] [address] 61237- 9869 Dec, [facility] [address] 12519- 3698 Dec, History of seizures Z87.898 and Hepatitis C B19.20 [facility] [id number] [place] [address] 16710- 3494 Dec, Hepatitis C B19.20 [facility] [id number] [place] [address] 08867- 7772 Dec, [facility] [id number] [place] [address] 69105- 9779 Dec, Cervicalgia M54.2 ; COPD (chronic obstructive pulmonary disease) J44.9 and Hepatitis C B19.20 [facility] [id number] [place] [address] 57500- 5118 Dec, Bipolar 2 disorder F31.81 ; History of hypertension Z86.79 ; History of anxiety Z86.59 ; Panic disorder with agoraphobia F40.01 and Epilepsy G40.909 [place] [id number] [place] [address] 37258- 4608 Nov, [facility] [id number] [place] [address] 31855- 9890 Nov, [address] 05755- 9702 Nov, History of seizures Z87.898 ; OAB (overactive bladder) N32.81 ; Lumbago M54.5 ; Other chronic pain G89.29 ; Cervicalgia M54.2 ; Tobacco abuse Z72.0 ; Tobacco abuse counseling Z71.6 and Impaired fasting glucose R73.[address] 25537- 3733 Nov, Bipolar 2 disorder F31.81 ; PTSD (post-traumatic stress disorder) F43.10 ; History of anxiety Z86.59 ; History of COPD Z87.09 ; Panic disorder with agoraphobia F40.01 and Moderate depressed bipolar I disorder F31.32 [place] [id number] [place] [address] 08951- 7976 12 Nov, 2015 PTSD (post-traumatic stress disorder) F43.10 [facility] [id number] [place] [address] [id number] 11 Nov, 2015 Dental examination Z01.20 and Dental caries K02.9 [place] [id number] [place] [address] 82330- 1483 08 Nov, 2015 History of hypertension Z86.79 ; History of hypothyroidism Z86.39 ; History of high cholesterol Z86.39 ; History of COPD Z87.09 and Overactive bladder N32.81 [place] [id number] [place] [address] 68872- 9477 Nov, Bipolar 2 disorder F31.81 and PTSD (post-traumatic stress disorder) F43.[id number] [place] [address] 52991- 7765 Nov, PTSD (post-traumatic stress disorder) F43.10 ; Panic disorder with agoraphobia F40.01 ; Epilepsy G40.909 and Moderate depressed bipolar I disorder F31.32 [place] [id number] [place] [address] 33567- 9838 Nov, [facility] [id number] [place] [address] 31369- 4516 Nov, [facility] [id number] [place] [address] 94255- 3143 Oct, [place] [id number] [place] [address] 54639- 0320 Oct, Generalized anxiety disorder F41.1 ; Major depression, recurrent F33.9 and PTSD (post-traumatic stress disorder) F43.10 [place] [id number] [place] [address] 28478- 5648 Oct, Elevated fasting glucose R73.01 [place] [id number] [place] [address] 00410- 7644 Oct, Elevated fasting glucose R73.01 [place] [id number] [place] [address] 34402- 4670 Oct, History of COPD Z87.09 [place] [id number] [place] [address] 62552- 5320 Oct, General medical exam Z00.00 ; History of hypertension Z86.79 ; History of hypothyroidism Z86.39 ; History of hepatitis Z86.19 ; History of high cholesterol Z86.39 and History of seizures Z87.898 [place] [id number] [place] [address] 24134- 3086 10 Oct, 2015 General medical exam Z00.00 ; History of hypertension Z86.79 ; History of hypothyroidism Z86.39 ; Bipolar 2 disorder F31.81 ; PTSD ( post-traumatic stress disorder) F43.10 ; History of hepatitis Z86.19 ; History of high cholesterol Z86.39 ; History of anxiety Z86.59 ; History of seizures Z87.898 ; History of MD (myocardial infarction) I25.2 and History of COPD Z87.09 [facility] [address] [address]- 6525 Oct, Generalized anxiety disorder F41.1 ; Depression F32.9 and PTSD (post-traumatic stress disorder) F43.10 [facility] [id number] [place] [address] 50160- 4212 Jan, [facility] [id number] [place] [address] 25476- 7324 Jan, [facility] [id number] [place] [address] 42429- 3265 Jun, [address] [id number] Jun, [facility] [id number] [place] [address] 88300- 4380 May, [facility] [id number] [place] [address] 84089- 6676 May, [address] [id number] May, [facility] [id number] [place] [address] 49500- 4312 May, [address] [id number] May, [facility] [id number] [place] [address] [phone] May, IMMUNIZATIONS No Known Immunizations SOCIAL HISTORY Never Assessed REASON FOR VISIT DM ed PLAN OF CARE VITAL SIGNS MEDICATIONS Unknown [...]
--- OUTSIDE RECORDS SUMMARY | 2019-01-26 07:30 | XMS REPORT ---
Author Author GERARDO KISER [facility] Address [address] [place] [address] Care Team Providers Care Shearing Shed Worker Name Role Phone MARGI GERARDO Unavailable PROBLEMS Type Condition ICD9-CM Code FAJ02-CB Code Onset Dates Condition Status SNOMED Code Problem OAB (overactive bladder) N32.81 Active 149677167 Problem Epilepsy G40.909 Active 51474876 Problem Cervicalgia M54.2 Active 41324126 Problem Other chronic pain G89.29 Active 94398144 Problem Tobacco abuse Z72.0 Active 95798392 Problem Lumbago M54.5 Active 365288951 Problem Hepatitis C B19.20 Active 97108663 Problem COPD (chronic obstructive pulmonary disease) J44.9 Active 30481663 Problem Diabetes E11.9 Active 80899303 Problem Bipolar I disorder with duy F31.10 Active 56277256 Problem Type 2 diabetes mellitus without complications E11.9 Active 670010113 Problem Stress incontinence of urine N39.3 Active 84072063 Problem Bilateral claudication of lower limb I73.9 Active 037310658 Problem Seasonal allergic rhinitis due to other allergic trigger J30.89 Active 304338483 Problem Hyperlipidemia, unspecified hyperlipidemia type E78.5 Active 79199782 Problem Hypertension, unspecified type I10 Active 07361671 Problem Chronic tension-type headache, not intractable G44.229 Active 391521435 Problem 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 mellitus without complication, without long -term current use of insulin E11.9 Active 035241327 Problem Type 2 diabetes mellitus with hyperglycemia E11.65 Active 078613555 Problem Chronic post-traumatic stress disorder (PTSD) F43.12 Active 370181211 Problem History of hypothyroidism Z86.39 Active 288496516 Problem Hypoglycemia E16.2 Active 597749136 Problem El's esophageal ulceration K22.10 Active 042562295 Problem Bipolar affective disorder, currently depressed, mild F31.31 Active 381260676 Problem Irritable bowel syndrome with diarrhea K58.0 Active 993141300 Problem Stress incontinence N39.3 Active 33173783 Problem History of hypertension Z86.79 Active 303847603 Problem Uncontrolled type 2 diabetes mellitus without complication, without long-term current use of insulin E11.65 Active 393623209 Problem Panic disorder with agoraphobia F40.01 Active 22515968 Problem Type 2 diabetes mellitus with hyperglycemia E11.65 Active 455092304 Problem History of seizures Z87.898 Active 794458371 Problem FCI current use of insulin Z79.4 Active 847531270 Problem History of NM (myocardial infarction) I25.2 Active 464209283 Problem Mood disorder F39 Active 33634948 Problem Bipolar 2 disorder F31.81 Active 43819258 Problem Gastritis and duodenitis K29.90 Active 885760494 Problem History of high cholesterol Z86.39 Active 783459609 Problem Bipolar I disorder with mood-congruent psychotic features F31.9 Active 850351093 Problem Hypertension, benign I10 Active 07666624 Problem Primary insomnia F51.01 Active 0132386 ALLERGIES No Information ENCOUNTERS Encounter Location Date Diagnosis [facility] [id number] [place] [address] 59116- 4092 Jul, [facility] [id number] [place] [address] 64210- 5008 Jun, [facility] [id number] [place] [address] 92682- 0997 Jun, [facility] [id number] [place] [address] 65602- 1425 Jun, Lumbago M54.5 [facility] [id number] [place] [address] 86866- 0228 Jun, Type 2 diabetes mellitus with hyperglycemia E11.65 [facility] [address] 43122- 4329 Jun, [facility] [id number] [place] [address] 51581- 0417 Jun, Type 2 diabetes mellitus with hyperglycemia E11.65 ; El 's esophageal ulceration K22.10 and Lumbago M54.5 [facility] [address] [address] 0505 Jun, Type 2 diabetes mellitus with hyperglycemia E11.65 [facility] [id number] [place] [address] 52200- 2966 Jun, [facility] [id number] [place] [address] 35163- 9742 Jun, [facility] [id number] [place] [address] 24147- 7761 Jun, Bipolar affective disorder, currently depressed, mild F31.31 ; Chronic post-traumatic stress disorder (PTSD) F43.12 and Panic disorder with agoraphobia F40.01 [facility] [address] [address]- 3685 Jun, [facility] [id number] [place] [address] 77603- 2783 Jun, [facility] [address] [address]- 0314 Jun, Type 2 diabetes mellitus with hyperglycemia E11.65 [facility] [id number] [place] [address] 65429- 2126 Jun, Uncontrolled type 2 diabetes mellitus with hyperglycemia E11.65 [facility] [address] [address]- 8599 Jun, [facility] [id number] [place] [address] 49116- 2210 May, Lumbago M54.5 [facility] [id number] [id number] May, [facility] [address] [address]- 7021 May, [facility] [address] [address]- 2170 May, [facility] [id number] [address]- 6860 May, [facility] [id number] [place] [address] 34205- 1355 May, [facility] [id number] [place] [address] 78394- 9168 May, [facility] [id number] [place] [address] 18131- 8633 May, [facility] [id number] [place] [address] 16897- 8363 May, Lumbago M54.5 [facility] [id number] [place] [address] 27796- 7860 May, [facility] [id number] [place] [address] 92432- 8744 Apr, Abnormal CT of the chest R93.8 [facility] [id number] [place] [address] 54657- 8886 Apr, Bipolar 2 disorder F31.81 ; Chronic post-traumatic stress disorder (PTSD) F43.12 and Panic disorder with agoraphobia F40.01 [facility] [id number] [place] [address] 72229- [address] Apr, [address] of the chest R93.8 [facility] [id number] [place] [address] 03018- [address] Apr, [address] of the chest R93.8 [facility] [id number] [place] [address] 27318- 4357 Apr, [facility] [id number] [place] [address] 30899- 3665 Apr, Type 2 diabetes mellitus with hyperglycemia E11.65 [facility] [id number] [place] [address] 90716- 2892 Apr, 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 mellitus without complication, without long-term current use of insulin E11.9 ; Watery eyes H04.203 ; Low back pain M54.5 ; Other chronic pain G89.29 ; Chronic tension-type headache, not intractable G44.229 ; Uncontrolled type 2 diabetes mellitus without complication , without long-term current use of insulin E11.65 and Bronchitis J40 [facility] [id number] [place] [address] 07807- 9702 Apr, [facility] [address] 07591- 8385 Apr, Lumbago M54.5 [facility] [id number] [place] [address] 50650- 6367 March, [facility] [id number] [place] [address] 49794 -0020 March, Cough R05 ; Pneumonia due to infectious organism, unspecified laterality, unspecified part of lung J18.9 and Non-intractable vomiting with nausea, unspecified vomiting type R11.2 [facility] [id number] [place] [address] 61450- 1900 March, Bronchitis J40 [facility] [address] 37871- 4275 March, [facility] [id number] [place] [address] 59857- 8511 March, El's esophageal ulceration K22.10 and Type 2 diabetes mellitus with hyperglycemia E11.65 [facility] [id number] [place] [address] 76786- 9779 March, Panic disorder with agoraphobia F40.01 ; Chronic post- traumatic stress disorder (PTSD) F43.12 and Bipolar 2 disorder F31.81 [facility] [id number] [place] [address] 27250- 8380 March, Type 2 diabetes mellitus with hyperglycemia E11.65 [facility] [id number] [place] [address] 61555- 8780 March, [facility] [id number] [address]- 2326 March, Lumbago M54.5 [facility] [id number] [place] [address] 52842- 3134 March, [facility] [id number] [place] [address] 54806- 3259 March, Irritable bowel syndrome with diarrhea K58.0 ; Primary insomnia F51.01 ; Type 2 diabetes mellitus with hyperglycemia E11.65 and 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 [facility] [id number] [place] [address] 69290- 1144 March, [facility] [id number] [place] [address] 01404- 9056 Jan, [facility] [id number] [place] [address] 79661- 6658 Jan, [facility] [id number] [place] [address] 46122- 2462 Jan, [facility] [id number] [place] [address] 94939- 2709 Jan, [facility] [id number] [place] [address] 38960- 9644 Jan, Dizziness R42 [facility] [id number] [place] [address] 11640- 2942 Jan, Bipolar affective disorder, currently depressed, mild F31.31 ; Panic disorder with agoraphobia F40.01 and Chronic post-traumatic stress disorder (PTSD) F43.12 [facility] [id number] [place] [address] 87853- 8744 Jan, Dizziness R42 [facility] [id number] [place] [address] 91494- 8106 Jan, Chest pain, unspecified type R07.9 ; Exertional dyspnea R06.09 ; Hypertension, unspecified type I10 and Hyperlipidemia, unspecified hyperlipidemia type E78.5 [facility] [id number] [place] [address] 35366- 6686 Jan, [facility] [address] 61092- 5106 09 Jan, 2018 Lumbago M54.5 [facility] [id number] [place] [address] 54368- 1535 04 Jan, 2018 El's esophageal ulceration K22.10 ; Blister (nonthermal ) of oral cavity, initial encounter S00.522A ; Local infection of the skin and subcutaneous tissue, unspecified L08.9 ; Type 2 diabetes mellitus with hyperglycemia E11.65 ; 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561 [facility] [id number] [place] [address] 11076- 8089 14 Dec, 2017 [facility] [id number] [place] [address] 80589- 7376 14 Dec, 2017 [facility] [id number] [place] [address] 86071- 5080 14 Dec, 2017 Lumbago M54.5 ; Acute pain of right knee M25.561 and Seasonal allergic rhinitis due to other allergic trigger J30.89 [facility] [id number] [place] [address] 49711- 3755 Dec, Type 2 diabetes mellitus with hyperglycemia E11.65 [facility] [address] [address]- 4326 Dec, [facility] [id number] [place] [address] 04180- 9962 Dec, [facility] [id number] [place] [address] 39939- 3047 Dec, [facility] [id number] [place] [address] 22850- 1234 Dec, [facility] [id number] [place] [address] 46645- 2387 Dec, Chronic post-traumatic stress disorder (PTSD) F43.12 and Panic disorder with agoraphobia F40.01 [facility] [id number] [place] [address] 50231- 1263 13 Dec, 2017 Low back pain M54.5 [facility] [id number] [place] [address] 82992- 7513 12 Dec, 2017 Type 2 diabetes mellitus with hyperglycemia E11.65 ; [facility]CI current use of insulin Z79.4 ; Low back pain M54.5 ; Other chronic pain G89.29 and Encounter for therapeutic drug level monitoring Z51.81 [facility] [id number] [place] [address] 15749- 3099 09 Dec, 2017 Coughing R05 [facility] [id number] [place] [address] 44044- 7707 Dec, [facility] [id number] [place] [address] [id number] Dec, 2017 Dental examination Z01.20 [facility] [id number] [place] [address] 15469- 7089 Nov, Type 2 diabetes mellitus without complications E11.9 and Encounter for therapeutic drug level monitoring Z51.81 [facility] [id number] [place] [address] 15458- 8152 Nov, [facility] [address] [address]- 2607 Oct, Type 2 diabetes mellitus without complications E11.9 [facility] [id number] [place] [address] 84069- 5659 Oct, Type 2 diabetes mellitus with hyperglycemia E11.65 [facility] [id number] [place] [address] 61239- 4212 Aug, Type 2 diabetes mellitus without complications E11.9 [facility] [id number] [place] [address] 93666- 5469 Aug, Type 2 diabetes mellitus without complications E11.9 ; Hypoglycemia E16.2 ; Lumbago M54.5 ; Stress incontinence of urine N39.3 and History of NM (myocardial infarction) I25.2 [facility] [id number] [place] [address] 80079- 1351 Jun, [facility] [id number] [place] [address] 05839- 4053 May, [facility] [id number] [place] [address] 82011- 8561 Apr, Panic disorder with agoraphobia F40.01 [facility] [id number] [address]- 8531 Apr, Panic disorder with agoraphobia F40.01 [facility] [address], [place] [address]- 9736 Apr, [facility] [id number] [place] [address] 14433- 8755 March, Other chronic pain G89.29 [facility] [id number] [address]- 3819 March, [facility] [id number] [address]- 2677 March, [facility] [address], [place] [address]- 9185 March, [facility] [id number] [place] [address] 83475- 3694 March, [facility] [id number] [place] [address] 30703- 3161 March, Type 2 diabetes mellitus without complications E11.9 [facility] [id number] [place] [address] 37728- 3687 16 Mar, 2017 Diarrhea, unspecified type R19.7 [facility] [id number] [place] [address] 01744- 8492 March, Bipolar 2 disorder F31.81 ; Chronic post-traumatic stress disorder (PTSD) F43.12 and Type 2 diabetes mellitus with hyperglycemia E11.65 [facility] [id number] [place] [address] 93410- 1308 March, [facility] [id number] [place] [address] 35774- 9422 March, [facility] [id number] [place] [address] 37052- 1652 March, Hypertension, benign I10 ; Type 2 diabetes mellitus with hyperglycemia E11.65 ; Hepatitis C B19.20 ; Gastritis and duodenitis K29.90 and Dysuria R30.0 [facility] [id number] [place] [address] 27432- 5138 March, Hypertension, benign I10 ; Type 2 diabetes mellitus with hyperglycemia E11.65 ; Hepatitis C B19.20 ; Gastritis and duodenitis K29.90 and Dysuria R30.0 [facility] [address] [place] [address] 72929- 7126 March, Panic disorder with agoraphobia F40.01 ; Chronic post- traumatic stress disorder (PTSD) F43.12 ; Epilepsy G40.909 and Bipolar I disorder with mood-congruent psychotic features F31.9 [facility] [id number] [address]- 6325 March, [facility] [id number] [place] [address] 62121- 8205 March, Type 2 diabetes mellitus with hyperglycemia E11.65 [facility] [id number] [place] [address] 19486- 2106 18 Jan, 2017 Bipolar I disorder with duy F31.10 [facility] [id number] [place] [address] 25363- 7202 17 Jan, 2017 Bipolar 2 disorder F31.81 ; Chronic post-traumatic stress disorder (PTSD) F43.12 and Type 2 diabetes mellitus with hyperglycemia E11.65 [facility] [id number] [place] [address] 13651- 5618 Jan, [facility] [id number] [place] [address] 18836- 1780 Jan, [facility] [id number] [place] [address] 48569- 6215 14 Jan, 2017 Panic disorder with agoraphobia F40.01 [facility] [id number] [place] [address] 56872- 7655 Jan, Panic disorder with agoraphobia F40.01 ; Bipolar I disorder with mood-congruent psychotic features F31.9 ; Chronic post-traumatic stress disorder (PTSD) F43.12 and Epilepsy G40.909 [facility] [id number] [place] [address] 86649- 1341 Jan, [facility] [id number] [place] [address] 13306- 1645 Jan, [facility] [id number] [place] [address] 43649- 5437 Jan, Type 2 diabetes mellitus without complications E11.9 and Hypoglycemia E16.2 [facility] [id number] [place] [address] 56009- 7642 07 Jan, 2017 Type 2 diabetes mellitus without complications E11.9 ; Primary insomnia F51.01 and Hypertension, benign I10 [facility] [address] [address]- 5121 Jan, [facility] [id number] [place] [address] [id number] Jan, [facility] [id number] [place] [address] 07819- 7905 Dec, Type 2 diabetes mellitus with hyperglycemia E11.65 [facility] [id number] [place] [address] 34592- 4886 Dec, [facility] [id number] [place] [address] 07893- 2561 Dec, Bipolar 2 disorder F31.81 ; Panic disorder with agoraphobia F40.01 ; Chronic post-traumatic stress disorder (PTSD) F43.12 and Epilepsy G40.909 [facility] [id number] [place] [address] 57976- 8900 Dec, [facility] [id number] [place] [address] 32117- 1029 Dec, [facility] [id number] [place] [address] 97852- 5353 Dec, Bipolar 2 disorder F31.81 ; Panic disorder with agoraphobia F40.01 ; Chronic post-traumatic stress disorder (PTSD) F43.12 and Epilepsy G40.909 [facility] [id number] [place] [address] 21528- 5731 Dec, [facility] [id number] [place] [address] 68105- 3007 Dec, [facility] [id number] [place] [address] 67762- 5082 Dec, [facility] [id number] [place] [address] 12487- 8105 Dec, Type 2 diabetes mellitus with hyperglycemia E11.65 ; 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 and Lumbago M54.5 [facility] [id number] [place] [address] 80802- 5581 Dec, [facility] [address] 50603- 4330 Dec, [facility] [address] 12898- 9172 Dec, [facility] [id number] [place] [address] 29744 -5010 Dec, Pain of left leg M79.605 and Pain in right leg M79.604 [facility] [address] 32752- 9682 Dec, [facility] [address] 90176- 6017 Dec, Type 2 diabetes mellitus with hyperglycemia E11.65 [facility] [id number] [place] [address] 74276- 7092 Dec, [place] [address] [address] Dec, Type 2 diabetes mellitus with hyperglycemia E11.65 ; [facility] current use of insulin Z79.4 ; Vagina, candidiasis B37.3 and Other chronic pain G89.29 [place] [address] [place] [id number] [place] [id number] Nov, Panic disorder with agoraphobia F40.01 [place] [address] [place] [id number] [place] [address] Nov, [place] [address] [address] Nov, [place] [address] [place] [id number] [place] [address] Nov, Hypoglycemia E16.2 [place] [address] [place] [address] Nov, [facility] [id number] [address] Nov, [facility] [id number] [address] Nov, [facility] [id number] [place] [address] Nov, Type 2 diabetes mellitus with hyperglycemia E11.65 and 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 [facility] [id number] [place] [address] Nov, Panic disorder with agoraphobia F40.01 ; Bipolar 2 disorder F31.81 ; Chronic post-traumatic stress disorder (PTSD) F43.12 and Epilepsy G40.909 [facility] [id number] [place] [address] Nov, Panic disorder with agoraphobia F40.01 [facility] [address] [id number] [address] Oct, [facility] [id number] [place] [address] 63188- 5732 Oct, [facility] [address] [address] 0201 Oct, Bipolar 2 disorder F31.81 ; Panic disorder with agoraphobia F40.01 and Mood disorder F39 [facility] [address] [address] 2297 Oct, Diabetes E11.9 ; Type 2 diabetes mellitus with hyperglycemia E11.65 and FCI current use of insulin Z79.4 [facility] [address] [address] 5701 Oct, [facility] [id number] [address] 5741 Sep, [facility] [id number] [address] 0704 29 Sep, 2016 Bipolar 2 disorder F31.81 and Mood disorder F39 [facility] [id number] [place] [address] 23725- 2381 Sep, [facility] [id number] [place] [address] 30869- 6404 Sep, Uncontrolled type 2 diabetes mellitus without complication, without long-term current use of insulin E11.65 [facility] [id number] [place] [address] 51247- 4006 Sep, [facility] [id number] [place] [address] 22591- 3779 Sep, [facility] [id number] [place] [address] 93806- 2010 Sep, [facility] [id number] [place] [address] 18449- 1486 Sep, [facility] [id number] [place] [address] 63895- 0571 Sep, Bipolar 2 disorder F31.81 ; Chronic post-traumatic stress disorder (PTSD) F43.12 ; Panic disorder with agoraphobia F40.01 and Epilepsy G40.909 [place] [address] [address] 3184 Sep, Bipolar 2 disorder F31.81 ; PTSD (post-traumatic stress disorder) F43.10 and Panic disorder with agoraphobia F40.01 [facility] [address] [address] 6142 Sep, [facility] [id number] [place] [address] 86753- 6860 Aug, History of seizures Z87.898 ; Panic disorder with agoraphobia F40.01 and Bipolar 2 disorder F31.81 [facility] [id number] [place] [address] 03471- 2976 Aug, [facility] [id number] [place] [address] 47355- 9592 17 Aug, 2016 [facility] [id number] [place] [address] 44943- 8773 Aug, [facility] [id number] [place] [address] 10770- 8616 Aug, [facility] [address] 11289- 3126 Aug, [facility] [id number] [place] [address] 60909- 0064 Aug, [facility] [address] 04154- 7164 10 Aug, 2016 Hypoglycemia E16.2 and Bilateral impacted cerumen H61.23 [facility] [address] 88035- 9857 Aug, [facility] [id number] [place] [address] 38981- 0850 21 Jul, 2016 [facility] [id number] [place] [address] 79195- 5930 21 Jul, 2016 [facility] [id number] [place] [address] 66032- 3615 15 Jul, 2016 Bipolar 2 disorder F31.81 ; Panic disorder with agoraphobia F40.01 ; PTSD (post-traumatic stress disorder) F43.10 and Epilepsy G40.909 [facility] [id number] [place] [address] 44065- 4073 12 Jul, 2016 [facility] [id number] [place] [address] 60729- 3864 09 Jul, 2016 Type 2 diabetes mellitus without complications E11.9 and Coughing R05 [facility] [id number] [place] [address] 16375- 4795 06 Jul, 2016 [facility] [id number] [place] [address] 5000 Jun, [facility] [id number] [place] [address] 22840- 1181 Jun, Bipolar 2 disorder F31.81 ; PTSD (post-traumatic stress disorder) F43.10 and Panic disorder with agoraphobia F40.01 [facility] [id number] [place] [address] 80330- 2165 Jun, [facility] [id number] [place] [address] 84662- 2038 Jun, [facility] [id number] [place] [address] 19996- 5451 Jun, [facility] [id number] [place] [address] 83538- 8683 Jun, Type 2 diabetes mellitus without complications E11.9 and COPD (chronic obstructive pulmonary disease) J44.9 [facility] [id number] [place] [address] [id number] May, Dental examination Z01.20 and Dental caries K02.9 [facility] [id number] [place] [address] 37354- 4962 May, Bipolar 2 disorder F31.81 ; PTSD (post-traumatic stress disorder) F43.10 and Panic disorder with agoraphobia F40.01 [facility] [id number] [place] [address] 83921- 0981 May, Lumbago with sciatica, right side M54.41 ; Other chronic pain G89.29 and Uncontrolled type 2 diabetes mellitus without complication, without long-term current use of insulin E11.65 [facility] [id number] [place] [address] 48259- 8601 May, Chronic bronchitis, unspecified chronic bronchitis type J42 [facility] [id number] [place] [address] 27321- 9961 May, [facility] [address] [place] [address]- 8815 May, [facility] [id number] [place] [address] 21043- 9744 May, Chest pain, unspecified type R07.9 ; Tobacco use Z72.0 ; Type 2 diabetes mellitus without complications E11.9 ; Essential hypertension I10 ; Hyperlipidemia, unspecified hyperlipidemia type E78.5 ; Obesity (BMI 30- 39.9) E66.9 ; History of hypothyroidism Z86.39 ; Chronic obstructive pulmonary disease, unspecified COPD type J44.9 ; Anxiety F41.9 ; Bilateral claudication of lower limb I73.9 and Bipolar 2 disorder F31.81 [place] [facility] [address] 65808- 7002 May, Bipolar 2 disorder F31.81 ; Panic disorder with agoraphobia F40.01 and Tobacco abuse Z72.0 [facility] [address] 12927- 6445 Apr, [facility] [address] 99181- 2251 Apr, [facility] [address] 14480- 7961 Apr, [facility] [id number] [place] [address] 51135- 1677 Apr, Bipolar 2 disorder F31.81 ; Panic disorder with agoraphobia F40.01 and PTSD (post-traumatic stress disorder) F43.10 [facility] [id number] [place] [address] 85113- 3668 Apr, Chronic bronchitis, unspecified chronic bronchitis type J42 ; Cervical neuritis M54.12 and Thoracic neuritis M54.14 [facility] [id number] [place] [address] 75307- 9800 Apr, [facility] [id number] [place] [address] 06566- 9461 Apr, Cervicalgia M54.2 [facility] [id number] [place] [address] 99655- 5688 14 Apr, 2016 Bipolar 2 disorder F31.81 ; Panic disorder with agoraphobia F40.01 and PTSD (post-traumatic stress disorder) F43.10 [facility] [id number] [place] [address] 61228 -8988 13 Apr, 2016 [facility] [id number] [place] [address] 05886 -5445 09 Apr, 2016 Cough R05 and Tobacco dependence F17.200 [place] [facility] [address] 81002- 6426 Apr, [facility] [address] 71948- 7488 Apr, [facility] [id number] [place] [address] 90295- 9635 March, Bipolar 2 disorder F31.81 ; Panic disorder with agoraphobia F40.01 and Generalized anxiety disorder F41.1 [facility] [id number] [place] [address] 86071- 3963 March, Closed displaced fracture of fifth metatarsal bone of right foot with routine healing, subsequent encounter S92.351D [place] [facility] [id number] [place] [address] 25408- 4382 March, Bronchitis J40 [facility] [id number] [place] [address] 19535- 5138 March, [facility] [id number] [place] [address] 25161- 7726 March, [facility] [facility] [address] 66256- 4060 March, Foot pain, right M79.671 ; Cervicalgia M54.2 and 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 mellitus without complication, 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 superintendent insulin use status E11.9 [facility] [id number] [place] [address] 08014- 0917 March, Fracture of fifth metatarsal bone of right foot S92.351A [place] [facility] [id number] [place] [address] 96781- 4033 March, [facility] [id number] [place] [address] 47929- 2306 Jan, Fracture of fifth metatarsal bone of right foot S92.351A [place] [facility] [id number] [place] [address] 50635- 5306 Jan, Bipolar 2 disorder F31.81 ; PTSD (post-traumatic stress disorder) F43.10 ; Panic disorder with agoraphobia F40.01 and Epilepsy G40.909 [facility] [id number] [place] [address] 62645- 3408 Jan, History of NM (myocardial infarction) I25.2 and History of high cholesterol Z86.39 [facility] [id number] [place] [address] 55306- 7785 Jan, Bipolar 2 disorder F31.81 ; Panic disorder with agoraphobia F40.01 ; Tobacco abuse Z72.0 and PTSD (post-traumatic stress disorder) F43.10 [place] [facility] [id number] [place] [address] 81615- 5398 Jan, Fracture of fifth metatarsal bone of right foot S92.351A [place] [facility] [id number] [place] [address] 53645- 8851 Jan, [facility] [id number] [place] [address] 14550- 1530 Jan, History of high cholesterol Z86.39 [facility] [id number] [place] [address] 97874- 1868 Jan, History of NM (myocardial infarction) I25.2 [facility] [id number] [place] [address] 47342- 2137 Jan, [facility] [id number] [place] [address] 40532- 0823 Dec, Back pain M54.9 ; Diabetes E11.9 ; Right knee pain M25.561 and Chest pain R07.9 [facility] [id number] [place] [address] 09872- 2433 Dec, [facility] [address] 12819- 1639 Dec, [facility] [address] 25463- 5473 Dec, Cervicalgia M54.2 [place] [facility] [address] 52540- 4988 Dec, Bipolar 2 disorder F31.81 ; PTSD (post-traumatic stress disorder) F43.10 ; Panic disorder with agoraphobia F40.01 and Epilepsy G40.909 [place] [address] 01457- 4159 Dec, Bipolar 2 disorder F31.81 ; PTSD (post-traumatic stress disorder) F43.10 and Panic disorder with agoraphobia F40.01 [facility] [id number] [place] [address] 09752- 8198 Dec, Diabetes E11.9 [facility] [id number] [place] [address] 86892- 5118 Dec, [facility] [id number] [place] [address] 13923- 6781 Dec, Other chronic pain G89.29 ; Hepatitis C B19.20 and History of seizures Z87.898 [place] [facility] [address] 05400- 2594 Dec, [facility] [id number] [place] [address] 88495- 3024 Dec, Bipolar 2 disorder F31.81 and Other chronic pain G89.29 [place] [facility] [id number] [place] [address] 73687- 9706 23 Dec, 2015 Cervicalgia M54.2 and Diabetes E11.9 [facility] [id number] [place] [address] 16857- 7624 18 Dec, 2015 [facility] [id number] [place] [address] 47883- 5528 Dec, [facility] [address] 98164- 1825 Dec, [facility] [id number] [place] [address] 80245- 6997 Dec, [facility] [id number] [place] [address] 27979- 1583 12 Dec, 2015 Type 2 diabetes mellitus without complications E11.9 [facility] [id number] [place] [address] 16291- 9169 10 Dec, 2015 [facility] [id number] [place] [address] 06792- 6264 09 Dec, 2015 History of seizures Z87.898 and Hepatitis C B19.20 [facility] [id number] [place] [address] 96654- 9535 08 Dec, 2015 Hepatitis C B19.20 [facility] [id number] [place] [address] 48477- 7619 Dec, [facility] [id number] [place] [address] 43778- 1395 Dec, Cervicalgia M54.2 ; COPD (chronic obstructive pulmonary disease) J44.9 and Hepatitis C B19.20 [place] [facility] [id number] [place] [address] 90277- 8464 02 Dec, 2015 Bipolar 2 disorder F31.81 ; History of hypertension Z86.79 ; History of anxiety Z86.59 ; Panic disorder with agoraphobia F40.01 and Epilepsy G40.909 [facility] [id number] [place] [address] 17209- 1528 Nov, [facility] [address] 90386- 6930 Nov, [facility] [facility] [id number] [place] [address] 05606- 3540 Nov, History of seizures Z87.898 ; OAB (overactive bladder) N32.81 ; Lumbago M54.5 ; Other chronic pain G89.29 ; Cervicalgia M54.2 ; Tobacco abuse Z72.0 ; Tobacco abuse counseling Z71.6 and Impaired fasting glucose R73.01 [place] [address] 68592- 0146 Nov, Bipolar 2 disorder F31.81 ; PTSD (post-traumatic stress disorder) F43.10 ; History of anxiety Z86.59 ; History of COPD Z87.09 ; Panic disorder with agoraphobia F40.01 and Moderate depressed bipolar I disorder F31.32 [address] [id number] [place] [address] 63482- 0707 12 Nov, 2015 PTSD (post-traumatic stress disorder) F43.10 [facility] [id number] [place] [address] [id number] 11 Nov, 2015 Dental examination Z01.20 and Dental caries K02.9 [place] [id number] [place] [address] 02795- 9037 08 Nov, 2015 History of hypertension Z86.79 ; History of hypothyroidism Z86.39 ; History of high cholesterol Z86.39 ; History of COPD Z87.09 and Overactive bladder N32.81 [place] [id number] [place] [address] 23947- 9891 Nov, Bipolar 2 disorder F31.81 and PTSD (post-traumatic stress disorder) F43.10 [facility] [address] [place] [id number] [place] [address] 89397- 4523 Nov, PTSD (post-traumatic stress disorder) F43.10 ; Panic disorder with agoraphobia F40.01 ; Epilepsy G40.909 and Moderate depressed bipolar I disorder F31.32 [place] [facility] [id number] [place] [address] 43729- 8681 Nov, [facility] [id number] [place] [address] 88033- 7677 Nov, [facility] [id number] [place] [address] 99144- 8275 Oct, [facility] [id number] [place] [address] 72648- 7004 Oct, Generalized anxiety disorder F41.1 ; Major depression, recurrent F33.9 and PTSD (post-traumatic stress disorder) F43.10 [place] [facility] [id number] [place] [address] 95440- 5320 Oct, Elevated fasting glucose R73.01 [place] [id number] [place] [address] 73532- 4628 Oct, Elevated fasting glucose R73.01 [facility] [id number] [place] [address] 66661- 0438 17 Oct, 2015 History of COPD Z87.09 [facility] [id number] [place] [address] 56225- 7996 15 Oct, 2015 General medical exam Z00.00 ; History of hypertension Z86.79 ; History of hypothyroidism Z86.39 ; History of hepatitis Z86.19 ; History of high cholesterol Z86.39 and History of seizures Z87.898 [place] [id number] [place] [address] 00771- 9098 Oct, General medical exam Z00.00 ; History of hypertension Z86.79 ; History of hypothyroidism Z86.39 ; Bipolar 2 disorder F31.81 ; PTSD ( post-traumatic stress disorder) F43.10 ; History of hepatitis Z86.19 ; History of high cholesterol Z86.39 ; History of anxiety Z86.59 ; History of seizures Z87.898 ; History of NM (myocardial infarction) I25.2 and History of COPD Z87.09 [place] [address] [address]- 5643 Oct, Generalized anxiety disorder F41.1 ; Depression F32.9 and PTSD (post-traumatic stress disorder) F43.10 [place] [address] [address]- 4258 Jan, [facility] [id number] [place] [address] 97003- 5808 Jan, [facility] [id number] [place] [address] 08188- 4380 Jun, [address] [id number] Jun, [place] [id number] [place] [address] [id number]- 9067 May, [place] [facility] [id number] [place] [address] [id number]- 5798 May, [address] [id number] May, [facility] [facility] [id number] [place] [address] 30021- 6380 May, [address] [id number] May, [place] [address] [address]- 2558 May, IMMUNIZATIONS No Known Immunizations SOCIAL HISTORY Never Assessed REASON FOR VISIT med change PLAN OF CARE VITAL SIGNS MEDICATIONS Medication Instructions Dosage Frequency Start Date End Date Duration Status Wellbutrin SR 150 MG Orally Twice a day 1 tablet 12h May, 30 day(s) Active RESULTS No Results PROCEDURES [...]
--- OUTSIDE RECORDS SUMMARY | 2019-01-26 07:31 | XMS REPORT ---
Author Author GERARDO KISER [facility] Address [address] [place] [address] Care Team Providers Care Miter Sawyer Name Role Phone MARGI GERARDO Unavailable PROBLEMS Type Condition ICD9-CM Code BBY92-XC Code Onset Dates Condition Status SNOMED Code Problem OAB (overactive bladder) N32.81 Active 651301997 Problem Epilepsy G40.909 Active 79496138 Problem Cervicalgia M54.2 Active 44831242 Problem Other chronic pain G89.29 Active 19182949 Problem Tobacco abuse Z72.0 Active 19309964 Problem Lumbago M54.5 Active 976683552 Problem Hepatitis C B19.20 Active 51841935 Problem COPD (chronic obstructive pulmonary disease) J44.9 Active 71697498 Problem Diabetes E11.9 Active 76293897 Problem Bipolar I disorder with duy F31.10 Active 41668272 Problem Type 2 diabetes mellitus without complications E11.9 Active 779401177 Problem Stress incontinence of urine N39.3 Active 26639828 Problem Bilateral claudication of lower limb I73.9 Active 587427995 Problem Seasonal allergic rhinitis due to other allergic trigger J30.89 Active 778636528 Problem Hyperlipidemia, unspecified hyperlipidemia type E78.5 Active 99746147 Problem Hypertension, unspecified type I10 Active 84362278 Problem Chronic tension-type headache, not intractable G44.229 Active 867764028 Problem 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 mellitus without complication, without long -term current use of insulin E11.9 Active 083077097 Problem Type 2 diabetes mellitus with hyperglycemia E11.65 Active 362195417 Problem Chronic post-traumatic stress disorder (PTSD) F43.12 Active 731310383 Problem History of hypothyroidism Z86.39 Active 227366641 Problem Hypoglycemia E16.2 Active 419762276 Problem El's esophageal ulceration K22.10 Active 146229580 Problem Bipolar affective disorder, currently depressed, mild F31.31 Active 539827725 Problem Irritable bowel syndrome with diarrhea K58.0 Active 519396670 Problem Stress incontinence N39.3 Active 29749081 Problem History of hypertension Z86.79 Active 173485326 Problem Uncontrolled type 2 diabetes mellitus without complication, without long-term current use of insulin E11.65 Active 826096441 Problem Panic disorder with agoraphobia F40.01 Active 46508256 Problem Type 2 diabetes mellitus with hyperglycemia E11.65 Active 116385747 Problem History of seizures Z87.898 Active 357424829 Problem halfway current use of insulin Z79.4 Active 846717055 Problem History of VT (myocardial infarction) I25.2 Active 971384998 Problem Mood disorder F39 Active 56771710 Problem Bipolar 2 disorder F31.81 Active 50552371 Problem Gastritis and duodenitis K29.90 Active 040425034 Problem History of high cholesterol Z86.39 Active 354040135 Problem Bipolar I disorder with mood-congruent psychotic features F31.9 Active 713837369 Problem Hypertension, benign I10 Active 29419149 Problem Primary insomnia F51.01 Active 5526640 ALLERGIES No Information ENCOUNTERS Encounter Location Date Diagnosis [facility] [id number] [place] [address] 07142- 8867 Jul, [facility] [id number] [place] [address] 68205- 7981 Jun, [facility] [id number] [place] [address] 84942- 6829 Jun, [facility] [id number] [place] [address] 32655- 5877 Jun, Lumbago M54.5 [facility] [id number] [place] [address] 49897- 5106 Jun, Type 2 diabetes mellitus with hyperglycemia E11.65 [facility] [address] 14311- 2416 Jun, [facility] [id number] [place] [address] 32154- 4040 Jun, Type 2 diabetes mellitus with hyperglycemia E11.65 ; El 's esophageal ulceration K22.10 and Lumbago M54.5 [facility] [address] [address] 1134 Jun, Type 2 diabetes mellitus with hyperglycemia E11.65 [facility] [id number] [place] [address] 57217- 6726 Jun, [facility] [id number] [place] [address] 70319- 9814 Jun, [facility] [id number] [place] [address] 98040- 6309 Jun, Bipolar affective disorder, currently depressed, mild F31.31 ; Chronic post-traumatic stress disorder (PTSD) F43.12 and Panic disorder with agoraphobia F40.01 [facility] [address] [address] 1796 Jun, [facility] [id number] [place] [address] 80923- 9505 Jun, [facility] [address], [place] [address]- 5248 Jun, Type 2 diabetes mellitus with hyperglycemia E11.65 [facility] [id number] [place] [address] 57879- 7699 Jun, Uncontrolled type 2 diabetes mellitus with hyperglycemia E11.65 [facility] [address], [place] [address] 4372 Jun, [facility] [id number] [place] [address] 52081- 6441 May, Lumbago M54.5 [facility] [id number] [id number] May, [facility] [address] [address]- 6847 May, [facility] [address], [place] [address]- 7158 May, [facility] [id number] [address]- 5755 May, [facility] [id number] [place] [address] 54529- 2638 May, [facility] [id number] [place] [address] 82516- 3016 May, [facility] [id number] [place] [address] 50917- 8454 May, [facility] [id number] [place] [address] 94278- 7770 May, Lumbago M54.5 [facility] [id number] [place] [address] 08802- 9019 May, [facility] [id number] [place] [address] 17794- [address], [address] of the chest R93.8 [facility] [id number] [place] [address] 32833- 6257 Apr, Bipolar 2 disorder F31.81 ; Chronic post-traumatic stress disorder (PTSD) F43.12 and Panic disorder with agoraphobia F40.01 [facility] [id number] [place] [address] 58552- [address] Apr, [address] of the chest R93.8 [facility] [id number] [place] [address] 16854- [address] Apr, [address] of the chest R93.8 [facility] [id number] [place] [address] 40595- 3645 Apr, [facility] [id number] [place] [address] 82379- 0453 Apr, Type 2 diabetes mellitus with hyperglycemia E11.65 [facility] [address] [place] [address] 97539- 5725 Apr, 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 mellitus without complication, without long-term current use of insulin E11.9 ; Watery eyes H04.203 ; Low back pain M54.5 ; Other chronic pain G89.29 ; Chronic tension-type headache, not intractable G44.229 ; Uncontrolled type 2 diabetes mellitus without complication , without long-term current use of insulin E11.65 and Bronchitis J40 [facility] [id number] [place] [address] 00502- 3932 Apr, [facility] [address] 46355- 3014 Apr, Lumbago M54.5 [facility] [id number] [place] [address] 15923- 3128 March, [facility] [id number] [place] [address] 75225 -0858 March, Cough R05 ; Pneumonia due to infectious organism, unspecified laterality, unspecified part of lung J18.9 and Non-intractable vomiting with nausea, unspecified vomiting type R11.2 [facility] [id number] [place] [address] 41340- 5327 March, Bronchitis J40 [facility] [address] 70832- 2394 March, [facility] [id number] [place] [address] 09121- 8629 March, El's esophageal ulceration K22.10 and Type 2 diabetes mellitus with hyperglycemia E11.65 [facility] [id number] [place] [address] 97103- 6679 March, Panic disorder with agoraphobia F40.01 ; Chronic post- traumatic stress disorder (PTSD) F43.12 and Bipolar 2 disorder F31.81 [facility] [id number] [place] [address] 50325- 9248 March, Type 2 diabetes mellitus with hyperglycemia E11.65 [facility] [id number] [place] [address] 13938- 0189 March, [facility] [id number] [address]- 9251 March, Lumbago M54.5 [facility] [id number] [place] [address] 06342- 9978 March, [facility] [id number] [place] [address] 00553- 0936 March, Irritable bowel syndrome with diarrhea K58.0 ; Primary insomnia F51.01 ; Type 2 diabetes mellitus with hyperglycemia E11.65 and 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 [facility] [id number] [place] [address] 79421- 6472 March, [facility] [id number] [place] [address] 53410- 1504 Jan, [facility] [id number] [place] [address] 31748- 9706 Jan, [facility] [id number] [place] [address] 92170- 4276 Jan, [facility] [id number] [place] [address] 73898- 8996 Jan, [facility] [id number] [place] [address] 47086- 1143 Jan, Dizziness R42 [facility] [id number] [place] [address] 22866- 5387 Jan, Bipolar affective disorder, currently depressed, mild F31.31 ; Panic disorder with agoraphobia F40.01 and Chronic post-traumatic stress disorder (PTSD) F43.12 [facility] [id number] [place] [address] 46778- 1576 Jan, Dizziness R42 [facility] [id number] [place] [address] 06772- 1574 Jan, Chest pain, unspecified type R07.9 ; Exertional dyspnea R06.09 ; Hypertension, unspecified type I10 and Hyperlipidemia, unspecified hyperlipidemia type E78.5 [facility] [id number] [place] [address] 73488- 1229 Jan, [facility] [address] 39015- 7031 09 Jan, 2018 Lumbago M54.5 [facility] [id number] [place] [address] 56015- 1892 04 Jan, 2018 El's esophageal ulceration K22.10 ; Blister (nonthermal ) of oral cavity, initial encounter S00.522A ; Local infection of the skin and subcutaneous tissue, unspecified L08.9 ; Type 2 diabetes mellitus with hyperglycemia E11.65 ; 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 and Stress incontinence N39.3 [facility] [id number] [place] [address] 15414- 8385 27 Dec, 2017 [facility] [id number] [place] [address] 59119- 0530 27 Dec, 2017 [facility] [id number] [place] [address] 83479- 2414 19 Dec, 2017 [facility] [address] [id number] Dec, 2017 Dental examination Z01.20 [facility] [id number] [place] [address] 37693- 7173 15 Dec, 2017 Acute pain of right knee M25.561 [facility] [id number] [place] [address] 05664- 0972 14 Dec, 2017 [facility] [id number] [place] [address] 64942- 4468 14 Dec, 2017 [facility] [id number] [place] [address] 87847- 7154 14 Dec, 2017 Lumbago M54.5 ; Acute pain of right knee M25.561 and Seasonal allergic rhinitis due to other allergic trigger J30.89 [facility] [id number] [place] [address] 73828- 4892 Dec, Type 2 diabetes mellitus with hyperglycemia E11.65 [facility] [address], [place] [address]- 6926 Dec, [facility] [id number] [place] [address] 47803- 3281 Dec, [facility] [id number] [place] [address] 53214- 6665 Dec, [facility] [id number] [place] [address] 03706- 6715 Dec, [facility] [id number] [place] [address] 17460- 6246 Dec, Chronic post-traumatic stress disorder (PTSD) F43.12 and Panic disorder with agoraphobia F40.01 [facility] [id number] [place] [address] 66236- 1082 13 Dec, 2017 Low back pain M54.5 [facility] [id number] [place] [address] 36126- 6146 12 Dec, 2017 Type 2 diabetes mellitus with hyperglycemia E11.65 ; halfway current use of insulin Z79.4 ; Low back pain M54.5 ; Other chronic pain G89.29 and Encounter for therapeutic drug level monitoring Z51.81 [facility] [id number] [place] [address] 07655- 4667 09 Dec, 2017 Coughing R05 [facility] [id number] [place] [address] 52850- 3423 Dec, [facility] [address] [place] [address] [id number] 07 Dec, 2017 Dental examination Z01.20 [facility] [id number] [place] [address] 43478- 3091 Nov, Type 2 diabetes mellitus without complications E11.9 and Encounter for therapeutic drug level monitoring Z51.81 [facility] [id number] [place] [address] 48243- 2038 Nov, [facility] [address], [place] [address]- 9954 Oct, Type 2 diabetes mellitus without complications E11.9 [facility] [id number] [place] [address] 83153- 7760 Oct, Type 2 diabetes mellitus with hyperglycemia E11.65 [facility] [id number] [place] [address] 61291- 5328 Aug, Type 2 diabetes mellitus without complications E11.9 [facility] [id number] [place] [address] 65725- 0774 Aug, Type 2 diabetes mellitus without complications E11.9 ; Hypoglycemia E16.2 ; Lumbago M54.5 ; Stress incontinence of urine N39.3 and History of VT (myocardial infarction) I25.2 [facility] [id number] [place] [address] 02008- 7940 Jun, [facility] [id number] [place] [address] 97088- 3759 May, [facility] [id number] [place] [address] 01432- 5965 Apr, Panic disorder with agoraphobia F40.01 [facility] [id number] [address]- 6122 Apr, Panic disorder with agoraphobia F40.01 [facility] [address], [place] [address]- 5121 Apr, [facility] [id number] [place] [address] 13155- 1842 March, Other chronic pain G89.29 [facility] [id number] [place] [address]- 1258 March, [facility] [id number] [place] [address]- 7655 March, [facility] [address], [place] [address]- 6145 March, [facility] [id number] [place] [address] 35719- 6266 March, [facility] [id number] [place] [address] 26549- 6882 March, Type 2 diabetes mellitus without complications E11.9 [facility] [id number] [place] [address] 11426- 6990 16 Mar, 2017 Diarrhea, unspecified type R19.7 [facility] [id number] [place] [address] 42699- 1087 March, Bipolar 2 disorder F31.81 ; Chronic post-traumatic stress disorder (PTSD) F43.12 and Type 2 diabetes mellitus with hyperglycemia E11.65 [facility] [id number] [place] [address] 39348- 3408 March, [facility] [id number] [place] [address] 02133- 8442 March, [facility] [address] [place] [address] 66189- 6761 March, Hypertension, benign I10 ; Type 2 diabetes mellitus with hyperglycemia E11.65 ; Hepatitis C B19.20 ; Gastritis and duodenitis K29.90 and Dysuria R30.0 [facility] [address] [place] [address] 35475- 5327 March, Hypertension, benign I10 ; Type 2 diabetes mellitus with hyperglycemia E11.65 ; Hepatitis C B19.20 ; Gastritis and duodenitis K29.90 and Dysuria R30.0 [facility] [address] [place] [address] 43551- 2519 March, Panic disorder with agoraphobia F40.01 ; Chronic post- traumatic stress disorder (PTSD) F43.12 ; Epilepsy G40.909 and Bipolar I disorder with mood-congruent psychotic features F31.9 [facility] [address] [address]- 2591 March, [facility] [id number] [place] [address] 88880- 6605 March, Type 2 diabetes mellitus with hyperglycemia E11.65 [facility] [id number] [place] [address] 43958- 8480 18 Jan, 2017 Bipolar I disorder with duy F31.10 [facility] [id number] [place] [address] 80247- 1820 17 Jan, 2017 Bipolar 2 disorder F31.81 ; Chronic post-traumatic stress disorder (PTSD) F43.12 and Type 2 diabetes mellitus with hyperglycemia E11.65 [facility] [id number] [place] [address] 30560- 9845 Jan, [facility] [id number] [place] [address] 89623- 1496 Jan, [facility] [id number] [place] [address] 48687- 2797 14 Jan, 2017 Panic disorder with agoraphobia F40.01 [facility] [id number] [place] [address] 44257- 1565 Jan, Panic disorder with agoraphobia F40.01 ; Bipolar I disorder with mood-congruent psychotic features F31.9 ; Chronic post-traumatic stress disorder (PTSD) F43.12 and Epilepsy G40.909 [facility] [id number] [place] [address] 54886- 4297 Jan, [facility] [id number] [place] [address] 67340- 0699 Jan, [facility] [id number] [place] [address] 68624- 2305 Jan, Type 2 diabetes mellitus without complications E11.9 and Hypoglycemia E16.2 [facility] [id number] [place] [address] 71630- 8636 07 Jan, 2017 Type 2 diabetes mellitus without complications E11.9 ; Primary insomnia F51.01 and Hypertension, benign I10 [facility] [address], [place] [address]- 1194 Jan, [facility] [id number] [place] [address] [id number] Jan, [facility] [id number] [place] [address] 81039- 2270 Dec, Type 2 diabetes mellitus with hyperglycemia E11.65 [facility] [id number] [place] [address] 46581- 7874 Dec, [facility] [id number] [place] [address] 80022- 7484 Dec, Bipolar 2 disorder F31.81 ; Panic disorder with agoraphobia F40.01 ; Chronic post-traumatic stress disorder (PTSD) F43.12 and Epilepsy G40.909 [facility] [id number] [place] [address] 05730- 5293 Dec, [facility] [id number] [place] [address] 62113- 4200 Dec, [facility] [id number] [place] [address] 91896- 1718 Dec, Bipolar 2 disorder F31.81 ; Panic disorder with agoraphobia F40.01 ; Chronic post-traumatic stress disorder (PTSD) F43.12 and Epilepsy G40.909 [facility] [address] [place] [address] 67790- 5841 Dec, [facility] [id number] [place] [address] 66065- 7247 Dec, [facility] [id number] [place] [address] 39283- 2495 Dec, [facility] [id number] [place] [address] 20773- 6330 Dec, Type 2 diabetes mellitus with hyperglycemia E11.65 ; 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 [id number] [place] [address] 26815 -5493 Dec, Pain of left leg M79.605 and Pain in right leg M79.604 [facility] [address] 41012- 3962 Dec, [facility] [address] 16158- 7767 Dec, Type 2 diabetes mellitus with hyperglycemia E11.65 [facility] [id number] [place] [address] 15926- 0406 Dec, [facility] [address] 89531- 6598 Dec, Type 2 diabetes mellitus with hyperglycemia E11.65 ; halfway current use of insulin Z79.4 ; Vagina, candidiasis B37.3 and Other chronic pain G89.29 [facility] [id number] [place] [address] 13460- 9149 Nov, Panic disorder with agoraphobia F40.01 [facility] [id number] [place] [address] 29947- 0072 Nov, [facility] [address] 83801- 3607 Nov, [facility] [id number] [place] [address] 36672- 8490 Nov, Hypoglycemia E16.2 [facility] [address] [place] [address]- 9126 Nov, [facility] [address], [place] [address]- 9564 Nov, [facility] [address], [place] [address]- 4982 Nov, [facility] [id number] [place] [address] 27212- 7835 Nov, Type 2 diabetes mellitus with hyperglycemia E11.65 and 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 [facility] [address] [place] [address] 83157- 1251 Nov, Panic disorder with agoraphobia F40.01 ; Bipolar 2 disorder F31.81 ; Chronic post-traumatic stress disorder (PTSD) F43.12 and Epilepsy G40.909 [facility] [address] [place] [address] 69469- 0912 Nov, Panic disorder with agoraphobia F40.01 [facility] [id number] [address] Oct, [facility] [id number] [place] [address] Oct, [facility] [id number] [place] [address] Oct, Bipolar 2 disorder F31.81 ; Panic disorder with agoraphobia F40.01 and Mood disorder F39 [facility] [address] [place] [address] Oct, Diabetes E11.9 ; Type 2 diabetes mellitus with hyperglycemia E11.65 and halfway current use of insulin Z79.4 [facility] [id number], [place] [address] Oct, [facility] [id number] [place] [address] Sep, [facility] [id number] [place] [address] 29 Sep, 2016 Bipolar 2 disorder F31.81 and Mood disorder F39 [facility] [id number] [place] [address]- [address] Sep, [facility] [id number] [place] [address]206- 9183 Sep, Uncontrolled type 2 diabetes mellitus without complication, without long-term current use of insulin E11.65 [facility] [id number] [place] [address]- 395[address] Sep, [place] [id number] [place] [address]91- 4512 Sep, [facility] [id number] [place] [address] 14866- 6267 Sep, [place] [id number] [place] [address]- 2087 Sep, [facility] [id number] [place] [address] 38[address]- 9062 Sep, Bipolar 2 disorder F31.81 ; Chronic post-traumatic stress disorder (PTSD) F43.12 ; Panic disorder with agoraphobia F40.01 and Epilepsy G40.909 [place] [address], [place] [address] Sep, Bipolar 2 disorder F31.81 ; PTSD (post-traumatic stress disorder) F43.10 and Panic disorder with agoraphobia F40.01 [facility] [address], [place] [address] Sep, [facility] [id number] [place] [address] 27914- 0384 Aug, History of seizures Z87.898 ; Panic disorder with agoraphobia F40.01 and Bipolar 2 disorder F31.81 [facility] [id number] [place] [address] 49219- 8860 Aug, [facility] [id number] [place] [address] 43411- 9102 17 Aug, 2016 [facility] [id number] [place] [address] 93423- 1094 Aug, [facility] [id number] [place] [address] 58343- 8570 Aug, [facility] [address] 61563- 8117 Aug, [facility] [id number] [place] [address] 82807- 2550 Aug, [facility] [address] 95405- 3208 10 Aug, 2016 Hypoglycemia E16.2 and Bilateral impacted cerumen H61.23 [facility] [address] 07818- 2255 Aug, [facility] [id number] [place] [address] 02369- 9134 21 Jul, 2016 [facility] [id number] [place] [address] 02119- 8483 21 Jul, 2016 [facility] [id number] [place] [address] 96185- 2526 15 Jul, 2016 Bipolar 2 disorder F31.81 ; Panic disorder with agoraphobia F40.01 ; PTSD (post-traumatic stress disorder) F43.10 and Epilepsy G40.909 [facility] [id number] [place] [address] 26888- 6326 12 Jul, 2016 [facility] [id number] [place] [address] 93578- 2935 09 Jul, 2016 Type 2 diabetes mellitus without complications E11.9 and Coughing R05 [facility] [id number] [place] [address] 83927- 8447 06 Jul, 2016 [facility] [id number] [place] [address] 7[address] Jun, [facility] [id number] [place] [address] 30421- 0141 Jun, Bipolar 2 disorder F31.81 ; PTSD (post-traumatic stress disorder) F43.10 and Panic disorder with agoraphobia F40.01 [facility] [id number] [place] [address] 74370- 0837 Jun, [facility] [id number] [place] [address] 03768- 4770 Jun, [facility] [id number] [place] [address] 83544- 4411 Jun, [facility] [id number] [place] [address] 97099- 4523 Jun, Type 2 diabetes mellitus without complications E11.9 and COPD (chronic obstructive pulmonary disease) J44.9 [facility] [id number] [place] [address] [id number] May, Dental examination Z01.20 and Dental caries K02.9 [place] [id number] [place] [address] 12173- 4474 May, Bipolar 2 disorder F31.81 ; PTSD (post-traumatic stress disorder) F43.10 and Panic disorder with agoraphobia F40.01 [facility] [id number] [place] [address] 91291- 8733 May, Lumbago with sciatica, right side M54.41 ; Other chronic pain G89.29 and Uncontrolled type 2 diabetes mellitus without complication, without long-term current use of insulin E11.65 [facility] [id number] [place] [address] 58850- 8639 May, Chronic bronchitis, unspecified chronic bronchitis type J42 [facility] [id number] [place] [address] 03983- 1790 May, [facility] [address] [place] [address]- 4205 May, [place] [id number] [place] [address] 31205- 9426 May, Chest pain, unspecified type R07.9 ; Tobacco use Z72.0 ; Type 2 diabetes mellitus without complications E11.9 ; Essential hypertension I10 ; Hyperlipidemia, unspecified hyperlipidemia type E78.5 ; Obesity (BMI 30- 39.9) E66.9 ; History of hypothyroidism Z86.39 ; Chronic obstructive pulmonary disease, unspecified COPD type J44.9 ; Anxiety F41.9 ; Bilateral claudication of lower limb I73.9 and Bipolar 2 disorder F31.81 [place] [address] 02030- 0959 May, Bipolar 2 disorder F31.81 ; Panic disorder with agoraphobia F40.01 and Tobacco abuse Z72.0 [place] [address] 22853- 2637 Apr, [place] [address] 18339- 7694 Apr, [place] [address] 68789- 3252 Apr, [place] [id number] [place] [address] 85773- 2051 Apr, Bipolar 2 disorder F31.81 ; Panic disorder with agoraphobia F40.01 and PTSD (post-traumatic stress disorder) F43.10 [place] [id number] [place] [address] 36343- 8921 Apr, Chronic bronchitis, unspecified chronic bronchitis type J42 ; Cervical neuritis M54.12 and Thoracic neuritis M54.14 [place] [id number] [place] [address] 92781- 9961 Apr, [place] [id number] [place] [address] 21405- 0417 Apr, Cervicalgia M54.2 [facility] [id number] [place] [address] 55550- 7361 14 Apr, 2016 Bipolar 2 disorder F31.81 ; Panic disorder with agoraphobia F40.01 and PTSD (post-traumatic stress disorder) F43.[address] [facility] [id number] [place] [address] 81046 -6659 13 Apr, [address] [facility] [id number] [place] [address] 70607 -6524 09 Apr, 2016 Cough R05 and Tobacco dependence F17.200 [place] [address] 26457- 4441 Apr, [place] [address] 77662- 4524 Apr, [place] [id number] [place] [address] 94844- 6027 March, Bipolar 2 disorder F31.81 ; Panic disorder with agoraphobia F40.01 and Generalized anxiety disorder F41.1 [place] [id number] [place] [address] 10526- 0251 March, Closed displaced fracture of fifth metatarsal bone of right foot with routine healing, subsequent encounter S92.351D [facility] [id number] [place] [address] 53945- 2236 March, Bronchitis J40 [place] [id number] [place] [address] 61826- 3236 March, [place] [id number] [place] [address] 30140- 1640 March, [place] [address] 69762- 2603 March, Foot pain, right M79.671 ; Cervicalgia M54.2 and 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 mellitus without complication, 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 manager insulin use status E11.9 [place] [id number] [place] [address] 06981- 7359 March, Fracture of fifth metatarsal bone of right foot S92.351A [place] [id number] [place] [address] 04227- 5711 March, [facility] [id number] [place] [address] 58847- 7955 Jan, Fracture of fifth metatarsal bone of right foot S92.351A [place] [id number] [place] [address] 32479- 3975 Jan, Bipolar 2 disorder F31.81 ; PTSD (post-traumatic stress disorder) F43.10 ; Panic disorder with agoraphobia F40.01 and Epilepsy G40.909 [place] [id number] [place] [address] 98537- 2831 Jan, History of VT (myocardial infarction) I25.2 and History of high cholesterol Z86.39 [place] [id number] [place] [address] 62497- 4857 Jan, Bipolar 2 disorder F31.81 ; Panic disorder with agoraphobia F40.01 ; Tobacco abuse Z72.0 and PTSD (post-traumatic stress disorder) F43.10 [place] [address] [place] [address] 45747- 2651 Jan, Fracture of fifth metatarsal bone of right foot S92.351A [place] [id number] [place] [address] 19049- 4633 Jan, [place] [facility] [id number] [place] [address] 37628- 4954 Jan, History of high cholesterol Z86.39 [place] [id number] [place] [address] 51113- 6274 Jan, History of VT (myocardial infarction) I25.2 [place] [id number] [place] [address] 13970- 2281 Jan, [place] [id number] [place] [address] 25100- 3121 Dec, Back pain M54.9 ; Diabetes E11.9 ; Right knee pain M25.561 and Chest pain R07.9 [place] [id number] [place] [address] 76899- 3449 Dec, [place] [address] 90881- 5087 Dec, [place] [address] 02738- 6634 Dec, Cervicalgia M54.2 [place] [address] 04475- 5674 Dec, Bipolar 2 disorder F31.81 ; PTSD (post-traumatic stress disorder) F43.10 ; Panic disorder with agoraphobia F40.01 and Epilepsy G40.909 [place] [address] 35476- 3612 Dec, Bipolar 2 disorder F31.81 ; PTSD (post-traumatic stress disorder) F43.10 and Panic disorder with agoraphobia F40.01 [place] [id number] [place] [address] 67530- 9798 Dec, Diabetes E11.9 [place] [id number] [place] [address] 37746- 2781 Dec, [place] [id number] [place] [address] 80694- 0010 Dec, Other chronic pain G89.29 ; Hepatitis C B19.20 and History of seizures Z87.898 [place] [address] 80143- 6084 Dec, [place] [id number] [place] [address] 00445- 5049 Dec, Bipolar 2 disorder F31.81 and Other chronic pain G89.29 [place] [id number] [place] [address] 43673- 0454 23 Dec, 2015 Cervicalgia M54.2 and Diabetes E11.9 [facility] [id number] [place] [address] 07706- 9790 18 Dec, 2015 [facility] [id number] [place] [address] 44885- 7772 Dec, [facility] [address] 71348- 7908 Dec, [facility] [id number] [place] [address] 56768- 8531 Dec, [facility] [id number] [place] [address] 87226- 4112 12 Dec, 2015 Type 2 diabetes mellitus without complications E11.9 [place] [id number] [place] [address] 68124- 0500 10 Dec, 2015 [facility] [id number] [place] [address] 25375- 8864 09 Dec, 2015 History of seizures Z87.898 and Hepatitis C B19.20 [place] [id number] [place] [address] 06958- 8582 08 Dec, 2015 Hepatitis C B19.20 [place] [id number] [place] [address] 55613- 3505 Dec, [facility] [id number] [place] [address] 36186- 1946 Dec, Cervicalgia M54.2 ; COPD (chronic obstructive pulmonary disease) J44.9 and Hepatitis C B19.20 [place] [id number] [place] [address] 46971- 6353 02 Dec, 2015 Bipolar 2 disorder F31.81 ; History of hypertension Z86.79 ; History of anxiety Z86.59 ; Panic disorder with agoraphobia F40.01 and Epilepsy G40.909 [facility] [address] [place] [address] 14944- 8020 Nov, [facility] [address] 44394- 6665 Nov, [place] [id number] [place] [address] 59162- 4568 Nov, History of seizures Z87.898 ; OAB (overactive bladder) N32.81 ; Lumbago M54.5 ; Other chronic pain G89.29 ; Cervicalgia M54.2 ; Tobacco abuse Z72.0 ; Tobacco abuse counseling Z71.6 and Impaired fasting glucose R73.01 [place] [address] 33598- 0789 Nov, Bipolar 2 disorder F31.81 ; PTSD (post-traumatic stress disorder) F43.10 ; History of anxiety Z86.59 ; History of COPD Z87.09 ; Panic disorder with agoraphobia F40.01 and Moderate depressed bipolar I disorder F31.32 [place] [id number] [place] [address] 99400- 7224 12 Nov, 2015 PTSD (post-traumatic stress disorder) F43.10 [facility] [id number] [place] [address] [id number] 11 Nov, 2015 Dental examination Z01.20 and Dental caries K02.9 [place] [id number] [place] [address] 58668- 4007 08 Nov, 2015 History of hypertension Z86.79 ; History of hypothyroidism Z86.39 ; History of high cholesterol Z86.39 ; History of COPD Z87.09 and Overactive bladder N32.81 [place] [id number] [place] [address] 18527- 6748 Nov, Bipolar 2 disorder F31.81 and PTSD (post-traumatic stress disorder) F43.10 [facility] [address] [place] [id number] [place] [address] 30095- 6405 Nov, PTSD (post-traumatic stress disorder) F43.10 ; Panic disorder with agoraphobia F40.01 ; Epilepsy G40.909 and Moderate depressed bipolar I disorder F31.32 [place] [id number] [place] [address] 36713- 7172 Nov, [place] [id number] [place] [address] 41283- 8542 Nov, [place] [id number] [place] [address] 82770- 2326 Oct, [place] [id number] [place] [address] 36243- 3623 Oct, Generalized anxiety disorder F41.1 ; Major depression, recurrent F33.9 and PTSD (post-traumatic stress disorder) F43.10 [place] [id number] [place] [address] 66405- 7396 Oct, Elevated fasting glucose R73.01 [place] [id number] [place] [address] 24921- 6874 Oct, Elevated fasting glucose R73.01 [place] [id number] [place] [address] 26105- 5492 17 Oct, 2015 History of COPD Z87.09 [place] [id number] [place] [address] 99308- 5491 15 Oct, 2015 General medical exam Z00.00 ; History of hypertension Z86.79 ; History of hypothyroidism Z86.39 ; History of hepatitis Z86.19 ; History of high cholesterol Z86.39 and History of seizures Z87.898 [place] [address] [place] [address] 28831- 7186 Oct, General medical exam Z00.00 ; History of hypertension Z86.79 ; History of hypothyroidism Z86.39 ; Bipolar 2 disorder F31.81 ; PTSD ( post-traumatic stress disorder) F43.10 ; History of hepatitis Z86.19 ; History of high cholesterol Z86.39 ; History of anxiety Z86.59 ; History of seizures Z87.898 ; History of VT (myocardial infarction) I25.2 and History of COPD Z87.09 [place] [address], [place] [address]- 6695 Oct, Generalized anxiety disorder F41.1 ; Depression F32.9 and PTSD (post-traumatic stress disorder) F43.10 [place] [address], [place] [address]- 8126 Jan, [facility] [id number] [place] [address] 30632- 5270 Jan, [facility] [id number] [place] [address] 97560- 1687 Jun, [address] [id number] Jun, [place] [id number] [place] [address] 04588- 2556 May, [place] [id number] [place] [address] 38137- 6899 May, [address] [id number] May, [place] [id number] [place] [address] 979037- 1296 May, [address] [id number] May, [place] [address] [address]- 7193 May, IMMUNIZATIONS No Known Immunizations SOCIAL HISTORY Never Assessed REASON FOR VISIT request med PLAN OF CARE VITAL SIGNS MEDICATIONS Medication Instructions Dosage Frequency Start Date End Date Duration Status Nicoderm CQ 14 MG/24HR Transdermal Once a day 1 patch to skin 24h May, Aug, 30 day(s) Active RESULTS No Results PROCEDURES No Known procedures INSTRUCTIONS MEDICATIONS ADMINISTERED No Known Medications MEDICAL (GENERAL) HISTORY Type Description Date Medical History Hypothyroidism Medical History High cholesterol Medical History Hypertension Medical History Brain seizure Medical History Asthma Medical History COPD Medical History Hep C -2005 Medical History VT x 2 last in 2009 Medical History PTSD (post-traumatic stress disorder) Medical History Colon Cancer 2017 Medical History diabites II Surgical History tonsillectomy 1985 Surgical History partial hysterectomy 2004 Surgical History appendectomy 2004 Hospitalization History Surgery(s) only Hospitalization History pneumonia x3 days Hospitalization History Heart cath with stint 05/15/2016 Hospitalization History Diverticulitis, N/V-[facility] 01/28/17
--- OUTSIDE RECORDS SUMMARY | 2019-01-26 07:32 | XMS REPORT ---
Author Author GERARDO KSIER [facility] Address [address] [place] [address] Care Team Providers Care Auto Design Checker Name Role Phone MARGI GERARDO Unavailable PROBLEMS Type Condition ICD9-CM Code [id number] Code Onset Dates Condition Status SNOMED Code Problem OAB (overactive bladder) N32.81 Active 205818519 Problem Epilepsy G40.909 Active 00559575 Problem Cervicalgia M54.2 Active 97532735 Problem Other chronic pain G89.29 Active 19841679 Problem Tobacco abuse Z72.0 Active 79557887 Problem Lumbago M54.5 Active 932527094 Problem Hepatitis C B19.20 Active 52977167 Problem COPD (chronic obstructive pulmonary disease) J44.9 Active 82106831 Problem Diabetes E11.9 Active 12643037 Problem Bipolar I disorder with duy F31.10 Active 31759173 Problem Type 2 diabetes mellitus without complications E11.9 Active 587384692 Problem Stress incontinence of urine N39.3 Active 28531269 Problem Bilateral claudication of lower limb I73.9 Active 809141353 Problem Seasonal allergic rhinitis due to other allergic trigger J30.89 Active 727465121 Problem Hyperlipidemia, unspecified hyperlipidemia type E78.5 Active 14846560 Problem Hypertension, unspecified type I10 Active 93427281 Problem Chronic tension-type headache, not intractable G44.229 Active 972214896 Problem 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 mellitus without complication, without long -term current use of insulin E11.9 Active 555787738 Problem Type 2 diabetes mellitus with hyperglycemia E11.65 Active 520933529 Problem Chronic post-traumatic stress disorder (PTSD) F43.12 Active 445700496 Problem History of hypothyroidism Z86.39 Active 674212295 Problem Hypoglycemia E16.2 Active 890313212 Problem El's esophageal ulceration K22.10 Active 851133145 Problem Bipolar affective disorder, currently depressed, mild F31.31 Active 806926005 Problem Irritable bowel syndrome with diarrhea K58.0 Active 215550773 Problem Stress incontinence N39.3 Active 08493534 Problem History of hypertension Z86.79 Active 123607504 Problem Uncontrolled type 2 diabetes mellitus without complication, without long-term current use of insulin E11.65 Active 774523994 Problem Panic disorder with agoraphobia F40.01 Active 45423789 Problem Type 2 diabetes mellitus with hyperglycemia E11.65 Active 612739133 Problem History of seizures Z87.898 Active 640202855 Problem snf current use of insulin Z79.4 Active 069269804 Problem History of CT (myocardial infarction) I25.2 Active 361080631 Problem Mood disorder F39 Active 07213909 Problem Bipolar 2 disorder F31.81 Active 84012029 Problem Gastritis and duodenitis K29.90 Active 695956868 Problem History of high cholesterol Z86.39 Active 206155267 Problem Bipolar I disorder with mood-congruent psychotic features F31.9 Active 884802827 Problem Hypertension, benign I10 Active 50043310 Problem Primary insomnia F51.01 Active 7410329 ALLERGIES No Information ENCOUNTERS Encounter Location Date Diagnosis [facility] [id number] [place] [address] 08744- 4195 Jul, [facility] [id number] [place] [address] 76353- 0601 Jun, [facility] [id number] [place] [address] 39130- 2389 Jun, [facility] [id number] [place] [address] 94273- 9926 Jun, Lumbago M54.5 [facility] [id number] [place] [address] 12369- 6019 Jun, Type 2 diabetes mellitus with hyperglycemia E11.65 [facility] [address] 05970- 3186 Jun, [facility] [id number] [place] [address] 00786- 5982 Jun, Type 2 diabetes mellitus with hyperglycemia E11.65 ; El 's esophageal ulceration K22.10 and Lumbago M54.5 [facility] [address], [place] [address] 0879 Jun, Type 2 diabetes mellitus with hyperglycemia E11.65 [facility] [address] [place] [address] 11412- 8366 Jun, [facility] [id number] [place] [address] 41889- 5397 Jun, [facility] [id number] [place] [address] 24666- 0229 Jun, Bipolar affective disorder, currently depressed, mild F31.31 ; Chronic post-traumatic stress disorder (PTSD) F43.12 and Panic disorder with agoraphobia F40.01 [facility] [address], [place] [address]- 4013 Jun, [facility] [id number] [place] [address] 62600- 8578 Jun, [facility] [address], [place] [address]- 5961 Jun, Type 2 diabetes mellitus with hyperglycemia E11.65 [facility] [id number] [place] [address] 21226- 3399 Jun, Uncontrolled type 2 diabetes mellitus with hyperglycemia E11.65 [facility] [address], [place] [address]- 9557 Jun, [facility] [address] [place] [address] 05822- 7231 May, Lumbago M54.5 [facility] [id number] [id number] May, [facility] [address] [place] [address]- 3742 May, [facility] [address], [place] [address]- 7846 May, [facility] [id number] [address]- 1806 May, [facility] [id number] [place] [address] 59053- 6610 May, [facility] [address] [place] [address] 65739- 7036 May, [facility] [id number] [place] [address] 65489- 6782 May, [facility] [id number] [place] [address] 01832- 2089 May, Lumbago M54.5 [facility] [id number] [place] [address] 63524- 4065 May, [facility] [id number] [place] [address] 34096- [address], [address] of the chest R93.8 [facility] [id number] [place] [address] 40569- 0293 Apr, Bipolar 2 disorder F31.81 ; Chronic post-traumatic stress disorder (PTSD) F43.12 and Panic disorder with agoraphobia F40.01 [facility] [address] [place] [address] 89517- [address] Apr, [address] of the chest R93.8 [facility] [address] [place] [address] 20642- [address] Apr, [address] of the chest R93.8 [facility] [address] [place] [address] 04680- 3564 Apr, [facility] [id number] [place] [address] 70740- 8271 Apr, Type 2 diabetes mellitus with hyperglycemia E11.65 [facility] [address] [place] [address] 47775- 4096 Apr, 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 mellitus without complication, without long-term current use of insulin E11.9 ; Watery eyes H04.203 ; Low back pain M54.5 ; Other chronic pain G89.29 ; Chronic tension-type headache, not intractable G44.229 ; Uncontrolled type 2 diabetes mellitus without complication , without long-term current use of insulin E11.65 and Bronchitis J40 [facility] [id number] [place] [address] 04206- 4528 Apr, [facility] [address] 28026- 5288 Apr, Lumbago M54.5 [facility] [id number] [place] [address] 97950- 5259 March, [facility] [id number] [place] [address] 28065 -3924 March, Cough R05 ; Pneumonia due to infectious organism, unspecified laterality, unspecified part of lung J18.9 and Non-intractable vomiting with nausea, unspecified vomiting type R11.2 [facility] [id number] [place] [address] 42131- 8942 March, Bronchitis J40 [facility] [address] 09351- 8895 March, [facility] [id number] [place] [address] 64570- 8008 March, El's esophageal ulceration K22.10 and Type 2 diabetes mellitus with hyperglycemia E11.65 [facility] [id number] [place] [address] 73492- 4168 March, Panic disorder with agoraphobia F40.01 ; Chronic post- traumatic stress disorder (PTSD) F43.12 and Bipolar 2 disorder F31.81 [facility] [id number] [place] [address] 35417- 7286 March, Type 2 diabetes mellitus with hyperglycemia E11.65 [facility] [id number] [place] [address] 59592- 6921 March, [facility] [id number] [address]- 6237 March, Lumbago M54.5 [facility] [id number] [place] [address] 83883- 6624 March, [facility] [id number] [place] [address] 38460- 6405 March, Irritable bowel syndrome with diarrhea K58.0 ; Primary insomnia F51.01 ; Type 2 diabetes mellitus with hyperglycemia E11.65 and 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 [facility] [id number] [place] [address] 89721- 9407 March, [facility] [id number] [place] [address] 52578- 7974 Jan, [facility] [id number] [place] [address] 35283- 5269 Jan, [facility] [id number] [place] [address] 76731- 2258 Jan, [facility] [id number] [place] [address] 44359- 4837 Jan, [facility] [id number] [place] [address] 87389- 4307 Jan, Dizziness R42 [facility] [id number] [place] [address] 14638- 2886 Jan, Bipolar affective disorder, currently depressed, mild F31.31 ; Panic disorder with agoraphobia F40.01 and Chronic post-traumatic stress disorder (PTSD) F43.12 [facility] [address] [place] [address] 42323- 6435 Jan, Dizziness R42 [facility] [id number] [place] [address] 42004- 1260 Jan, Chest pain, unspecified type R07.9 ; Exertional dyspnea R06.09 ; Hypertension, unspecified type I10 and Hyperlipidemia, unspecified hyperlipidemia type E78.5 [facility] [id number] [place] [address] 02752- 5983 Jan, [facility] [address] 65891- 8794 09 Jan, 2018 Lumbago M54.5 [facility] [id number] [place] [address] 82890- 4025 04 Jan, 2018 El's esophageal ulceration K22.10 ; Blister (nonthermal ) of oral cavity, initial encounter S00.522A ; Local infection of the skin and subcutaneous tissue, unspecified L08.9 ; Type 2 diabetes mellitus with hyperglycemia E11.65 ; 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 and Stress incontinence N39.3 [facility] [id number] [place] [address] 22928- 7933 27 Dec, 2017 [facility] [id number] [place] [address] 98756- 6302 27 Dec, 2017 [facility] [id number] [place] [address] 30446- 6039 19 Dec, 2017 [facility] [address] [id number] 16 Dec, 2017 Dental examination Z01.20 [facility] [id number] [place] [address] 86807- 3471 15 Dec, 2017 Acute pain of right knee M25.561 [facility] [id number] [place] [address] 95309- 2335 14 Dec, 2017 [facility] [id number] [place] [address] 57913- 7453 14 Dec, 2017 [facility] [id number] [place] [address] 72954- 8030 14 Dec, 2017 Lumbago M54.5 ; Acute pain of right knee M25.561 and Seasonal allergic rhinitis due to other allergic trigger J30.89 [facility] [id number] [place] [address] 30148- 2571 Dec, Type 2 diabetes mellitus with hyperglycemia E11.65 [facility] [address], [place] [address]- 4784 Dec, [facility] [id number] [place] [address] 07155- 1156 Dec, [facility] [id number] [place] [address] 62178- 0226 Dec, [facility] [id number] [place] [address] 99430- 1039 Dec, [facility] [id number] [place] [address] 05008- 5761 Dec, Chronic post-traumatic stress disorder (PTSD) F43.12 and Panic disorder with agoraphobia F40.01 [facility] [id number] [place] [address] 14286- 7978 13 Dec, 2017 Low back pain M54.5 [facility] [id number] [place] [address] 70382- 4521 12 Dec, 2017 Type 2 diabetes mellitus with hyperglycemia E11.65 ; snf current use of insulin Z79.4 ; Low back pain M54.5 ; Other chronic pain G89.29 and Encounter for therapeutic drug level monitoring Z51.81 [facility] [address] [place] [address] 96474- 8146 09 Dec, 2017 Coughing R05 [facility] [id number] [place] [address] 78591- 8074 Dec, [facility] [address] [place] [address] [id number] 07 Dec, 2017 Dental examination Z01.20 [facility] [address] [place] [address] 67314- 8475 Nov, Type 2 diabetes mellitus without complications E11.9 and Encounter for therapeutic drug level monitoring Z51.81 [facility] [id number] [place] [address] 94750- 8064 Nov, [facility] [address], [place] [address]- 5157 Oct, Type 2 diabetes mellitus without complications E11.9 [facility] [id number] [place] [address] 92432- 7197 Oct, Type 2 diabetes mellitus with hyperglycemia E11.65 [facility] [id number] [place] [address] 20586- 1227 Aug, Type 2 diabetes mellitus without complications E11.9 [facility] [id number] [place] [address] 21794- 8983 Aug, Type 2 diabetes mellitus without complications E11.9 ; Hypoglycemia E16.2 ; Lumbago M54.5 ; Stress incontinence of urine N39.[address] (myocardial infarction) I25.2 [facility] [id number] [place] [address] 64268- 1224 Jun, [facility] [address] [place] [address] 58454- 5097 May, [facility] [id number] [place] [address] 52984- 9328 Apr, Panic disorder with agoraphobia F40.01 [facility] [id number] [address]- 7814 Apr, Panic disorder with agoraphobia F40.01 [facility] [address], [place] [address]- 1408 Apr, [facility] [address] [place] [address] 60889- 7979 March, Other chronic pain G89.29 [facility] [id number] [place] [address]- 5002 March, [facility] [id number] [address]- 4687 March, [facility] [address], [place] [address]- 8757 March, [facility] [address] [place] [address] 29280- 3796 March, [facility] [address] [place] [address] 79856- 8099 March, Type 2 diabetes mellitus without complications E11.9 [facility] [id number] [place] [address] 64419- 8237 16 Mar, 2017 Diarrhea, unspecified type R19.7 [facility] [id number] [place] [address] 66688- 4099 March, Bipolar 2 disorder F31.81 ; Chronic post-traumatic stress disorder (PTSD) F43.12 and Type 2 diabetes mellitus with hyperglycemia E11.65 [facility] [id number] [place] [address] 11347- 3638 March, [facility] [id number] [place] [address] 26942- 2693 March, [facility] [address] [place] [address] 77168- 9841 March, Hypertension, benign I10 ; Type 2 diabetes mellitus with hyperglycemia E11.65 ; Hepatitis C B19.20 ; Gastritis and duodenitis K29.90 and Dysuria R30.0 [facility] [address] [place] [address] 60747- 4019 March, Hypertension, benign I10 ; Type 2 diabetes mellitus with hyperglycemia E11.65 ; Hepatitis C B19.20 ; Gastritis and duodenitis K29.90 and Dysuria R30.0 [facility] [address] [place] [address] 36754- 4926 March, Panic disorder with agoraphobia F40.01 ; Chronic post- traumatic stress disorder (PTSD) F43.12 ; Epilepsy G40.909 and Bipolar I disorder with mood-congruent psychotic features F31.9 [facility] [id number] [address]- 8144 March, [facility] [id number] [place] [address] 29126- 5880 March, Type 2 diabetes mellitus with hyperglycemia E11.65 [facility] [id number] [place] [address] 37026- 4337 18 Jan, 2017 Bipolar I disorder with duy F31.10 [facility] [id number] [place] [address] 35897- 4701 17 Jan, 2017 Bipolar 2 disorder F31.81 ; Chronic post-traumatic stress disorder (PTSD) F43.12 and Type 2 diabetes mellitus with hyperglycemia E11.65 [facility] [id number] [place] [address] 36357- 6606 Jan, [facility] [id number] [place] [address] 84061- 6194 Jan, [facility] [id number] [place] [address] 48880- 1826 14 Jan, 2017 Panic disorder with agoraphobia F40.01 [facility] [id number] [place] [address] 43685- 0630 Jan, Panic disorder with agoraphobia F40.01 ; Bipolar I disorder with mood-congruent psychotic features F31.9 ; Chronic post-traumatic stress disorder (PTSD) F43.12 and Epilepsy G40.909 [facility] [address] [place] [address] 95346- 1691 Jan, [facility] [address] [place] [address] 80290- 8246 Jan, [facility] [id number] [place] [address] 87846- 0891 Jan, Type 2 diabetes mellitus without complications E11.9 and Hypoglycemia E16.2 [facility] [id number] [place] [address] 81229- 9650 07 Jan, 2017 Type 2 diabetes mellitus without complications E11.9 ; Primary insomnia F51.01 and Hypertension, benign I10 [facility] [address], [place] [address]- 1570 Jan, [facility] [id number] [place] [address] [id number] Jan, [facility] [id number] [place] [address] 45156- 0582 Dec, Type 2 diabetes mellitus with hyperglycemia E11.65 [facility] [id number] [place] [address] 20208- 8546 Dec, [facility] [id number] [place] [address] 49677- 3636 Dec, Bipolar 2 disorder F31.81 ; Panic disorder with agoraphobia F40.01 ; Chronic post-traumatic stress disorder (PTSD) F43.12 and Epilepsy G40.909 [facility] [id number] [place] [address] 50864- 1437 Dec, [facility] [id number] [place] [address] 62861- 0576 Dec, [facility] [id number] [place] [address] 51816- 2130 Dec, Bipolar 2 disorder F31.81 ; Panic disorder with agoraphobia F40.01 ; Chronic post-traumatic stress disorder (PTSD) F43.12 and Epilepsy G40.909 [facility] [address] [place] [address] 78556- 6398 Dec, [facility] [address] [place] [address] 73138- 9093 Dec, [facility] [id number] [place] [address] 02730- 1652 Dec, [facility] [address] [place] [address] 32115- 3274 Dec, Type 2 diabetes mellitus with hyperglycemia E11.65 ; 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 and Lumbago M54.5 [facility] [id number] [place] [address] 03084- 7295 Dec, [facility] [address] 48205- 8208 Dec, [facility] [address] 21838- 8668 Dec, [facility] [id number] [place] [address] 60920 -8497 Dec, Pain of left leg M79.605 and Pain in right leg M79.604 [facility] [address] 08408- 3162 Dec, [facility] [address] 04043- 8454 Dec, Type 2 diabetes mellitus with hyperglycemia E11.65 [facility] [id number] [place] [address] 78205- 6256 Dec, [facility] [address] 98751- 1215 Dec, Type 2 diabetes mellitus with hyperglycemia E11.65 ; snf current use of insulin Z79.4 ; Vagina, candidiasis B37.3 and Other chronic pain G89.29 [facility] [id number] [place] [address] 92123- 3529 Nov, Panic disorder with agoraphobia F40.01 [facility] [id number] [place] [address] 99799- 3211 Nov, [facility] [address] 06133- 7475 Nov, [facility] [id number] [place] [address] 01691- 6511 Nov, Hypoglycemia E16.2 [facility] [address] [place] [address]- 4436 Nov, [facility] [address], [place] [address]- 5278 Nov, [facility] [address], [place] [address]- 5871 Nov, [facility] [address] [place] [address] 47728- 9753 Nov, Type 2 diabetes mellitus with hyperglycemia E11.65 and 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 [facility] [address] [place] [address] 28781- 8833 Nov, Panic disorder with agoraphobia F40.01 ; Bipolar 2 disorder F31.81 ; Chronic post-traumatic stress disorder (PTSD) F43.12 and Epilepsy G40.909 [facility] [id number] [place] [address] [phone]- [phone] Nov, Panic disorder with agoraphobia F40.01 [facility] [id number] [address] Oct, [facility] [id number] [place] [address] [phone]- [phone] Oct, [facility] [id number] [place] [address] Oct, Bipolar 2 disorder F31.81 ; Panic disorder with agoraphobia F40.01 and Mood disorder F39 [facility] [id number] [place] [address] Oct, Diabetes E11.9 ; Type 2 diabetes mellitus with hyperglycemia E11.65 and snf current use of insulin Z79.4 [facility] [id number] [address] Oct, [facility] [id number] [place] [address] Sep, [facility] [id number] [place] [address] 29 Sep, 2016 Bipolar 2 disorder F31.81 and Mood disorder F39 [facility] [id number] [place] [address] [phone]- 9330 Sep, [facility] [id number] [place] [address] 38485- [phone] Sep, Uncontrolled type 2 diabetes mellitus without complication, without long-term current use of insulin E11.65 [facility] [id number] [place] [phone]- [phone] Sep, [place] [id number] [place] [address] [phone] Sep, [facility] [address] [address] [id number] [place] [address] 58843- 0334 Sep, [place] [id number] [place] [address] 15091- 3947 Sep, [facility] [id number] [place] [address] 20950- 6859 Sep, Bipolar 2 disorder F31.81 ; Chronic post-traumatic stress disorder (PTSD) F43.12 ; Panic disorder with agoraphobia F40.01 and Epilepsy G40.909 [place] [address], [place] [address] 97[address] Sep, Bipolar 2 disorder F31.81 ; PTSD (post-traumatic stress disorder) F43.10 and Panic disorder with agoraphobia F40.01 [facility] [address], [place] [address] 9[address] Sep, [facility] [id number] [place] [address] 39456- 4192 Aug, History of seizures Z87.898 ; Panic disorder with agoraphobia F40.01 and Bipolar 2 disorder F31.81 [facility] [id number] [place] [address] 68310- 3803 Aug, [facility] [id number] [place] [address] 56742- 4504 17 Aug, 2016 [facility] [id number] [place] [address] 76207- 1305 Aug, [facility] [id number] [place] [address] 49856- 0115 Aug, [facility] [address] 33272- 5422 Aug, [facility] [id number] [place] [address] 94934- 7937 Aug, [facility] [address] 12225- 8101 10 Aug, 2016 Hypoglycemia E16.2 and Bilateral impacted cerumen H61.23 [facility] [address] 48967- 3601 Aug, [facility] [id number] [place] [address] 80979- 6099 21 Jul, 2016 [facility] [id number] [place] [address] 74899- 7662 21 Jul, 2016 [facility] [id number] [place] [address] 73164- 8361 15 Jul, 2016 Bipolar 2 disorder F31.81 ; Panic disorder with agoraphobia F40.01 ; PTSD (post-traumatic stress disorder) F43.10 and Epilepsy G40.909 [facility] [id number] [place] [address] 41523- 9555 12 Jul, 2016 [facility] [id number] [place] [address] 43324- 5636 09 Jul, 2016 Type 2 diabetes mellitus without complications E11.9 and Coughing R05 [facility] [id number] [place] [address] 01091- 8948 06 Jul, 2016 [facility] [address] [place] [address]- 4143 Jun, [facility] [id number] [place] [address] 47232- 8469 Jun, Bipolar 2 disorder F31.81 ; PTSD (post-traumatic stress disorder) F43.10 and Panic disorder with agoraphobia F40.01 [facility] [id number] [place] [address] 83976- 9603 Jun, [facility] [id number] [place] [address] 17120- 5421 Jun, [facility] [id number] [place] [address] 65609- 6105 Jun, [place] [facility] [id number] [place] [address] 24214- 4975 Jun, Type 2 diabetes mellitus without complications E11.9 and COPD (chronic obstructive pulmonary disease) J44.9 [facility] [id number] [place] [address] [id number] May, Dental examination Z01.20 and Dental caries K02.9 [facility] [id number] [place] [address] 77908- 4551 May, Bipolar 2 disorder F31.81 ; PTSD (post-traumatic stress disorder) F43.10 and Panic disorder with agoraphobia F40.01 [facility] [id number] [place] [address] 22361- 1947 May, Lumbago with sciatica, right side M54.41 ; Other chronic pain G89.29 and Uncontrolled type 2 diabetes mellitus without complication, without long-term current use of insulin E11.65 [facility] [id number] [place] [address] 88827- 1359 May, Chronic bronchitis, unspecified chronic bronchitis type J42 [facility] [id number] [place] [address] 18861- 6291 May, [facility] [address] [place] [address]- 6448 May, [place] [facility] [id number] [place] [address] 21497- 4413 May, Chest pain, unspecified type R07.9 ; Tobacco use Z72.0 ; Type 2 diabetes mellitus without complications E11.9 ; Essential hypertension I10 ; Hyperlipidemia, unspecified hyperlipidemia type E78.5 ; Obesity (BMI 30- 39.9) E66.9 ; History of hypothyroidism Z86.39 ; Chronic obstructive pulmonary disease, unspecified COPD type J44.9 ; Anxiety F41.9 ; Bilateral claudication of lower limb I73.9 and Bipolar 2 disorder F31.81 [place] [address] 96934- 0836 May, Bipolar 2 disorder F31.81 ; Panic disorder with agoraphobia F40.01 and Tobacco abuse Z72.0 [place] [address] 90125- 6389 Apr, [place] [address] 07172- 0307 Apr, [place] [address] 53[address]- 9786 Apr, [facility] [facility] [id number] [place] [address] 16077- 9575 Apr, Bipolar 2 disorder F31.81 ; Panic disorder with agoraphobia F40.01 and PTSD (post-traumatic stress disorder) F43.10 [facility] [id number] [place] [address] 79778- 6112 Apr, Chronic bronchitis, unspecified chronic bronchitis type J42 ; Cervical neuritis M54.12 and Thoracic neuritis M54.14 [facility] [id number] [place] [address] 42915- 5372 Apr, [facility] [id number] [place] [address] 04912- 5036 Apr, Cervicalgia M54.2 [facility] [id number] [place] [address] 88825- 5919 14 Apr, 2016 Bipolar 2 disorder F31.81 ; Panic disorder with agoraphobia F40.01 and PTSD (post-traumatic stress disorder) F43.10 [facility] [id number] [place] [address] 09277 -2898 13 Apr, 2016 [facility] [id number] [place] [address] 10534 -7491 09 Apr, 2016 Cough R05 and Tobacco dependence F17.200 [place] [address] 89343- 5205 Apr, [place] [address] 29813- 0565 Apr, [facility] [id number] [place] [address] 38624- 2477 March, Bipolar 2 disorder F31.81 ; Panic disorder with agoraphobia F40.01 and Generalized anxiety disorder F41.1 [facility] [id number] [place] [address] 71912- 1314 March, Closed displaced fracture of fifth metatarsal bone of right foot with routine healing, subsequent encounter S92.351D [facility] [id number] [place] [address] 70400- 8682 March, Bronchitis J40 [facility] [id number] [place] [address] 53460- 5344 March, [facility] [id number] [place] [address] 43163- 1067 March, [place] [address] 63655- 9754 March, Foot pain, right M79.671 ; Cervicalgia M54.2 and 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 mellitus without complication, unspecified manager terminal insulin use status E11.9 [facility] [id number] [place] [address] 04522- 8379 March, Fracture of fifth metatarsal bone of right foot S92.351A [facility] [facility] [id number] [place] [address] 14446- 0882 March, [facility] [id number] [place] [address] 97019- 2032 Jan, Fracture of fifth metatarsal bone of right foot S92.351A [facility] [id number] [place] [address] 24224- 9435 Jan, Bipolar 2 disorder F31.81 ; PTSD (post-traumatic stress disorder) F43.10 ; Panic disorder with agoraphobia F40.01 and Epilepsy G40.909 [facility] [id number] [place] [address] 94562- 7849 Jan, History of CT (myocardial infarction) I25.2 and History of high cholesterol Z86.39 [facility] [id number] [place] [address] 11602- 4203 Jan, Bipolar 2 disorder F31.81 ; Panic disorder with agoraphobia F40.01 ; Tobacco abuse Z72.0 and PTSD (post-traumatic stress disorder) F43.10 [place] [address] [place] [address] 32242- 8627 Jan, Fracture of fifth metatarsal bone of right foot S92.351A [facility] [id number] [place] [address] 71203- 6832 Jan, [facility] [id number] [place] [address] 81364- 4939 Jan, History of high cholesterol Z86.39 [facility] [id number] [place] [address] 43243- 2473 Jan, [address] (myocardial infarction) I25.2 [facility] [id number] [place] [address] 96517- 1113 Jan, [facility] [id number] [place] [address] 59706- 1287 Dec, Back pain M54.9 ; Diabetes E11.9 ; Right knee pain M25.561 and Chest pain R07.9 [facility] [id number] [place] [address] 29999- 2395 Dec, [place] [address] 33504- 8256 Dec, [place] [address] 46038- 8385 Dec, Cervicalgia M54.2 [place] [address] 68765- 1144 Dec, Bipolar 2 disorder F31.81 ; PTSD (post-traumatic stress disorder) F43.10 ; Panic disorder with agoraphobia F40.01 and Epilepsy G40.909 [place] [address] 10854- 5346 Dec, Bipolar 2 disorder F31.81 ; PTSD (post-traumatic stress disorder) F43.10 and Panic disorder with agoraphobia F40.01 [place] [address] [id number] [place] [address] 38729- 1323 Dec, Diabetes E11.9 [facility] [id number] [place] [address] 31306- 6497 Dec, [facility] [id number] [place] [address] 95994- 8960 Dec, Other chronic pain G89.29 ; Hepatitis C B19.20 and History of seizures Z87.898 [place] [address] 22741- 8100 Dec, [place] [address] [id number] [place] [address] 85234- 9267 Dec, Bipolar 2 disorder F31.81 and Other chronic pain G89.29 [place] [address] [place] [address] 91695- 1143 23 Dec, 2015 Cervicalgia M54.2 and Diabetes E11.9 [facility] [id number] [place] [address] 79379- 5567 18 Dec, 2015 [facility] [id number] [place] [address] 28352- 9592 Dec, [facility] [address] 55760- 3851 Dec, [facility] [id number] [place] [address] 26710- 9117 Dec, [facility] [id number] [place] [address] 70919- 4197 12 Dec, 2015 Type 2 diabetes mellitus without complications E11.9 [facility] [address] [id number] [place] [address] 37245- 1472 10 Dec, 2015 [facility] [id number] [place] [address] 59590- 6547 09 Dec, 2015 History of seizures Z87.898 and Hepatitis C B19.20 [facility] [id number] [place] [address] 36509- 8382 08 Dec, 2015 Hepatitis C B19.20 [facility] [id number] [place] [address] 28822- 0050 Dec, [facility] [id number] [place] [address] 68304- 2597 Dec, Cervicalgia M54.2 ; COPD (chronic obstructive pulmonary disease) J44.9 and Hepatitis C B19.20 [place] [place] [id number] [place] [address] 19982- 2375 02 Dec, 2015 Bipolar 2 disorder F31.81 ; History of hypertension Z86.79 ; History of anxiety Z86.59 ; Panic disorder with agoraphobia F40.01 and Epilepsy G40.909 [facility] [address] [place] [address] 18584- 5309 Nov, [facility] [address] 30596- 8018 Nov, [place] [id number] [place] [address] 04158- 9046 Nov, History of seizures Z87.898 ; OAB (overactive bladder) N32.81 ; Lumbago M54.5 ; Other chronic pain G89.29 ; Cervicalgia M54.2 ; Tobacco abuse Z72.0 ; Tobacco abuse counseling Z71.6 and Impaired fasting glucose R73.01 [place] [address] 74230- 9363 Nov, Bipolar 2 disorder F31.81 ; PTSD (post-traumatic stress disorder) F43.10 ; History of anxiety Z86.59 ; History of COPD Z87.09 ; Panic disorder with agoraphobia F40.01 and Moderate depressed bipolar I disorder F31.32 [place] [id number] [place] [address] 13354- 4928 12 Nov, 2015 PTSD (post-traumatic stress disorder) F43.10 [facility] [id number] [place] [address] [phone] 11 Nov, 2015 Dental examination Z01.20 and Dental caries K02.9 [place] [id number] [place] [address] 38857- 9717 08 Nov, 2015 History of hypertension Z86.79 ; History of hypothyroidism Z86.39 ; History of high cholesterol Z86.39 ; History of COPD Z87.09 and Overactive bladder N32.81 [facility] [id number] [place] [address] 02976- 9334 Nov, Bipolar 2 disorder F31.81 and PTSD (post-traumatic stress disorder) F43.10 [facility] [address] [place] [id number] [place] [address] 42878- 3828 Nov, PTSD (post-traumatic stress disorder) F43.10 ; Panic disorder with agoraphobia F40.01 ; Epilepsy G40.909 and Moderate depressed bipolar I disorder F31.32 [facility] [id number] [place] [address] 67489- 6591 Nov, [place] [facility] [id number] [place] [address] 73467- 9161 Nov, [facility] [id number] [place] [address] 16513- 1201 Oct, [place] [id number] [place] [address] 71865- 0025 Oct, Generalized anxiety disorder F41.1 ; Major depression, recurrent F33.9 and PTSD (post-traumatic stress disorder) F43.10 [place] [facility] [id number] [place] [address] 09537- 6672 Oct, Elevated fasting glucose R73.01 [facility] [facility] [id number] [place] [address] 60084- 0167 Oct, Elevated fasting glucose R73.01 [facility] [id number] [place] [address] 73526- 2823 17 Oct, 2015 History of COPD Z87.09 [facility] [id number] [place] [address] 90854- 4860 15 Oct, 2015 General medical exam Z00.00 ; History of hypertension Z86.79 ; History of hypothyroidism Z86.39 ; History of hepatitis Z86.19 ; History of high cholesterol Z86.39 and History of seizures Z87.898 [place] [address] [place] [address] 23921- 3785 Oct, General medical exam Z00.00 ; History of hypertension Z86.79 ; History of hypothyroidism Z86.39 ; Bipolar 2 disorder F31.81 ; PTSD ( post-traumatic stress disorder) F43.10 ; History of hepatitis Z86.19 ; History of high cholesterol Z86.39 ; History of anxiety Z86.59 ; History of seizures Z87.898 ; History of CT (myocardial infarction) I25.2 and History of COPD Z87.09 [facility] [address], [place] [address]- 2735 Oct, Generalized anxiety disorder F41.1 ; Depression F32.9 and PTSD (post-traumatic stress disorder) F43.10 [facility] [address], [place] [address]- 1085 Jan, [facility] [id number] [place] [address] 35081- 6726 Jan, [facility] [address] [place] [address] 26593- 7872 Jun, [address] [id number] Jun, [facility] [id number] [place] [address] 99684- 3976 May, [facility] [id number] [place] [address] 52012- 6014 May, [address] [id number] May, [facility] [id number] [place] [address] 396408- 6684 May, [address] [id number] May, [facility] [address], [place] [address]- 6125 May, IMMUNIZATIONS No Known Immunizations SOCIAL HISTORY [...]
--- OUTSIDE RECORDS SUMMARY | 2019-01-26 07:33 | XMS REPORT ---
Author Author FRANK LUNA Organization [facility] Address [address] [place] [address] Care Team Providers Care Retail Field Supervisor Name Role Phone FRANK LUNA Unavailable PROBLEMS Type Condition ICD9-CM Code TGI80-AH Code Onset Dates Condition Status SNOMED Code Problem OAB (overactive bladder) N32.81 Active 189606598 Problem Epilepsy G40.909 Active 52921458 Problem Cervicalgia M54.2 Active 08897046 Problem Other chronic pain G89.29 Active 44830616 Problem Tobacco abuse Z72.0 Active 15122147 Problem Lumbago M54.5 Active 748487871 Problem Hepatitis C B19.20 Active 11711409 Problem COPD (chronic obstructive pulmonary disease) J44.9 Active 24297142 Problem Diabetes E11.9 Active 18078263 Problem Bipolar I disorder with duy F31.10 Active 18211549 Problem Type 2 diabetes mellitus without complications E11.9 Active 722830232 Problem Stress incontinence of urine N39.3 Active 75692509 Problem Bilateral claudication of lower limb I73.9 Active 774135859 Problem Seasonal allergic rhinitis due to other allergic trigger J30.89 Active 573104097 Problem Hyperlipidemia, unspecified hyperlipidemia type E78.5 Active 54146039 Problem Hypertension, unspecified type I10 Active 04494823 Problem Chronic tension-type headache, not intractable G44.229 Active 554651232 Problem 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 mellitus without complication, without long -term current use of insulin E11.9 Active 369348145 Problem Type 2 diabetes mellitus with hyperglycemia E11.65 Active 927451109 Problem Chronic post-traumatic stress disorder (PTSD) F43.12 Active 329725790 Problem History of hypothyroidism Z86.39 Active 014056538 Problem Hypoglycemia E16.2 Active 379914069 Problem El's esophageal ulceration K22.10 Active 920335488 Problem Bipolar affective disorder, currently depressed, mild F31.31 Active 515539463 Problem Irritable bowel syndrome with diarrhea K58.0 Active 540995166 Problem Stress incontinence N39.3 Active 38086316 Problem History of hypertension Z86.79 Active 750216864 Problem Uncontrolled type 2 diabetes mellitus without complication, without long-term current use of insulin E11.65 Active 732514368 Problem Panic disorder with agoraphobia F40.01 Active 88536219 Problem Type 2 diabetes mellitus with hyperglycemia E11.65 Active 168473125 Problem History of seizures Z87.898 Active 896810119 Problem FDC current use of insulin Z79.4 Active 820728063 Problem History of IN (myocardial infarction) I25.2 Active 928473570 Problem Mood disorder F39 Active 14003871 Problem Bipolar 2 disorder F31.81 Active 87872734 Problem Gastritis and duodenitis K29.90 Active 108792087 Problem History of high cholesterol Z86.39 Active 861647611 Problem Bipolar I disorder with mood-congruent psychotic features F31.9 Active 124617088 Problem Hypertension, benign I10 Active 84550211 Problem Primary insomnia F51.01 Active 4568949 ALLERGIES Substance Reaction Event Type Date Status Penicillin V Potassium Unknown Drug Allergy Apr, Active Metformin HCl diarrhea Drug Allergy Apr, Active Macrobid stomach upset Drug Allergy Apr, Active Iodine anaphylaxis Drug Allergy Apr, Active Fentanyl halucinations/insomnia Drug Allergy Apr, Active ENCOUNTERS Encounter Location Date Diagnosis [place] [id number] [place] [address] 94673- 4800 Jul, [facility] [id number] [place] [address] 31779- 4299 Jun, [facility] [id number] [place] [address] 39266- 9686 Jun, [facility] [id number] [place] [address] 50977- 4883 Jun, Lumbago M54.5 [facility] [id number] [place] [address] 78981- 6600 Jun, Type 2 diabetes mellitus with hyperglycemia E11.65 [facility] [id number] [place] [address] 36449- 0744 Jun, [facility] [address] [facility] [id number] [address] 245[address] Jun, Type 2 diabetes mellitus with hyperglycemia E11.65 ; El 's esophageal ulceration K22.10 and Lumbago M54.5 [facility] [id number] [address] 1786 Jun, Type 2 diabetes mellitus with hyperglycemia E11.65 [facility] [id number] [address] 3035 Jun, [facility] [id number] [place] [address] 81819- 7696 Jun, [facility] [id number] [place] [address] 33760- 4159 Jun, Bipolar affective disorder, currently depressed, mild F31.31 ; Chronic post-traumatic stress disorder (PTSD) F43.12 and Panic disorder with agoraphobia F40.01 [facility] [address], [place] [address] 2162 Jun, [facility] [id number] [place] [address] 55476- 8610 Jun, [facility] [id number] [place] [address] 28025- 7930 Jun, Type 2 diabetes mellitus with hyperglycemia E11.65 [facility] [address] [address] 3424 Jun, Uncontrolled type 2 diabetes mellitus with hyperglycemia E11.65 [facility] [id number] [address] 1857 Jun, [facility] [id number] [address] 3053 May, Lumbago M54.5 [facility] [address] [facility] [id number] [id number] May, [facility] [id number] [address] 3693 May, [facility] [address], [place] [address] 3018 May, [facility] [address], [place] [address]- 3711 May, [facility] [address] [address]- 7062 May, [facility] [address], [place] [address]- 9064 May, [facility] [id number] [place] [address] 55492- 8530 May, [facility] [id number] [place] [address] 35685- 7928 May, Lumbago M54.5 [facility] [id number] [place] [address] 78950- 9735 May, [facility] [address], [place] [address] [address], [address] of the chest R93.8 [facility] [address], [place] [address] 7153 Apr, Bipolar 2 disorder F31.81 ; Chronic post-traumatic stress disorder (PTSD) F43.12 and Panic disorder with agoraphobia F40.01 [facility] [address], [place] [address] [address] Apr, [address] of the chest R93.8 [facility] [address], [place] [address] [address] Apr, [address] of the chest R93.8 [facility] [address], [place] [address]- 7063 Apr, [facility] [address], [place] [address]- 0060 Apr, Type 2 diabetes mellitus with hyperglycemia E11.65 [facility] [id number] [place] [address] 51465- 0765 Apr, 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 mellitus without complication, without long-term current use of insulin E11.9 ; Watery eyes H04.203 ; Low back pain M54.5 ; Other chronic pain G89.29 ; Chronic tension-type headache, not intractable G44.229 ; Uncontrolled type 2 diabetes mellitus without complication , without long-term current use of insulin E11.65 and Bronchitis J40 [place] [id number] [place] [address] 58980- 8089 Apr, [place] [address] 45289- 5617 Apr, Lumbago M54.5 [place] [address] 84597- 3144 March, [facility] [address] [address] March, Cough R05 ; Pneumonia due to infectious organism, unspecified laterality, unspecified part of lung J18.9 and Non-intractable vomiting with nausea, unspecified vomiting type R11.2 [place] [address] 18262- 4240 March, Bronchitis J40 [place] [id number] [place] [address] 35819- 1635 March, [place] [address] 41606- 8653 March, El's esophageal ulceration K22.10 and Type 2 diabetes mellitus with hyperglycemia E11.65 [place] [address] 06114- 6019 March, Panic disorder with agoraphobia F40.01 ; Chronic post- traumatic stress disorder (PTSD) F43.12 and Bipolar [address] 20197- 4237 March, Type 2 diabetes mellitus with hyperglycemia E11.65 [facility] [id number] [place] [address] 97863- 1078 March, [facility] [id number] [place] [address] 27998- 4625 March, Lumbago M54.5 [facility] [id number] [place] [address] 00443- 4167 March, [facility] [id number] [place] [address] 34714- 4975 March, Irritable bowel syndrome with diarrhea K58.0 ; Primary insomnia F51.01 ; Type 2 diabetes mellitus with hyperglycemia E11.65 and keno 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 [place] [id number] [place] [address] 62214- 8624 March, [place] [id number] [place] [address] 42895- 3751 Jan, [facility] [id number] [place] [address] 18651- 2473 Jan, [place] [id number] [place] [address] 60762- 7568 Jan, [place] [id number] [address] 9559 Jan, [place] [id number] [place] [address] 01119- 0050 Jan, Dizziness R42 [facility] [address], [place] [address]- 6947 Jan, Bipolar affective disorder, currently depressed, mild F31.31 ; Panic disorder with agoraphobia F40.01 and Chronic post-traumatic stress disorder (PTSD) F43.12 [place] [address], [place] [address]- 6886 Jan, Dizziness R42 [facility] [id number] [place] [address] 42389- 4420 11 Jan, 2018 Chest pain, unspecified type R07.9 ; Exertional dyspnea R06.09 ; Hypertension, unspecified type I10 and Hyperlipidemia, unspecified hyperlipidemia type E78.5 [place] [id number] [place] [address] 20464- 4988 Jan, [place] [address] 08642- 3893 Jan, Lumbago M54.5 [place] [id number] [place] [address] 09027- 1376 04 Jan, 2018 El's esophageal ulceration K22.10 ; Blister (nonthermal ) of oral cavity, initial encounter S00.522A ; Local infection of the skin and subcutaneous tissue, unspecified L08.9 ; Type 2 diabetes mellitus with hyperglycemia E11.65 ; FDC current use of insulin Z79.4 and Stress incontinence N39.3 [place] [id number] [place] [address] 19703- 5942 27 Dec, 2017 [place] [id number] [place] [address] 72199- 7983 27 Dec, 2017 [place] [id number] [place] [address] 05287- 7303 19 Dec, 2017 [facility] [id number] [place] [address] [id number] 16 Dec, 2017 Dental examination Z01.20 [place] [id number] [place] [address] 20018- 6607 15 Dec, 2017 Acute pain of right knee M25.561 [place] [address] 11261- 7888 14 Dec, 2017 [place] [id number] [place] [address] 58587- 9960 14 Dec, 2017 [place] [id number] [place] [address] 41313- 2280 Dec, Lumbago M54.5 ; Acute pain of right knee M25.561 and Seasonal allergic rhinitis due to other allergic trigger J30.89 [place] [id number] [place] [address] 05415- 0124 Dec, Type 2 diabetes mellitus with hyperglycemia E11.65 [place] [id number] [place] [address] 80522- 4974 Dec, [facility] [address] 39213- 2508 Dec, [place] [id number] [place] [address] 84525- 5044 Dec, [place] [address] 89085- 9598 Dec, [place] [id number] [place] [address] 25490- 0324 Dec, Chronic post-traumatic stress disorder (PTSD) F43.12 and Panic disorder with agoraphobia F40.01 [place] [id number] [place] [address] 85993- 8742 13 Dec, 2017 Low back pain M54.5 [place] [id number] [place] [address] 62857- 8095 Dec, Type 2 diabetes mellitus with hyperglycemia E11.65 ; FDC current use of insulin Z79.4 ; Low back pain M54.5 ; Other chronic pain G89.29 and Encounter for therapeutic drug level monitoring Z51.81 [place] [id number] [place] [address] 83658- 9819 Dec, Coughing R05 [place] [address] 55997- 4250 Dec, [facility] [id number] [place] [address] [id number] 07 Dec, 2017 Dental examination Z01.20 [place] [address], [place] [address]- 7843 Nov, Type 2 diabetes mellitus without complications E11.9 and Encounter for therapeutic drug level monitoring Z51.81 [place] [id number] [place] [address] 81236- 0430 Nov, [place] [id number] [place] [address] 91767- 2117 Oct, Type 2 diabetes mellitus without complications E11.9 [place] [id number] [place] [address] 22604- 6007 Oct, Type 2 diabetes mellitus with hyperglycemia E11.65 [place] [id number] [place] [address] 17950- 4801 Aug, Type 2 diabetes mellitus without complications E11.9 [place] [id number] [place] [address] 74885- 2674 Aug, Type 2 diabetes mellitus without complications E11.9 ; Hypoglycemia E16.2 ; Lumbago M54.5 ; Stress incontinence of urine N39.3 and History of IN (myocardial infarction) I25.2 [place] [id number] [place] [address] 58126- 6388 Jun, [place] [id number] [place] [address] 39265- 6440 May, [place] [id number] [place] [address] 19002- 2631 Apr, Panic disorder with agoraphobia F40.01 [place] [address] [address]- 4526 Apr, Panic disorder with agoraphobia F40.01 [place] [id number] [place] [address] 26406- 9266 Apr, [place] [address], [place] [address]- 3327 March, Other chronic pain G89.29 [place] [address], [place] [address]- 9927 March, [facility] [address], [place] [address]- 0436 March, [facility] [id number] [place] [address] 96612- 4903 March, [facility] [id number] [place] [address] 05812- 0418 March, [facility] [id number] [place] [address] 66519- 1348 March, Type 2 diabetes mellitus without complications E11.9 [place] [id number] [place] [address] 34184- 9101 March, Diarrhea, unspecified type R19.7 [place] [id number] [place] [address] 00121- 0836 March, Bipolar 2 disorder F31.81 ; Chronic post-traumatic stress disorder (PTSD) F43.12 and Type 2 diabetes mellitus with hyperglycemia E11.65 [place] [address] [place] [address] 63317- 4119 March, [facility] [id number] [place] [address] 03597- 4894 March, [facility] [address], [place] [address]- 4454 March, Hypertension, benign I10 ; Type 2 diabetes mellitus with hyperglycemia E11.65 ; Hepatitis C B19.20 ; Gastritis and duodenitis K29.90 and Dysuria R30.0 [facility] [address], [place] [address]- 5707 March, Hypertension, benign I10 ; Type 2 diabetes mellitus with hyperglycemia E11.65 ; Hepatitis C B19.20 ; Gastritis and duodenitis K29.90 and Dysuria R30.0 [facility] [address] [place] [address] 23060- 9660 March, Panic disorder with agoraphobia F40.01 ; Chronic post- traumatic stress disorder (PTSD) F43.12 ; Epilepsy G40.909 and Bipolar I disorder with mood-congruent psychotic features F31.9 [facility] [id number] [place] [address] 57318- 6121 March, [facility] [id number] [place] [address] 67838- 9372 March, Type 2 diabetes mellitus with hyperglycemia E11.65 [facility] [id number] [place] [address] 71720- 6098 18 Jan, 2017 Bipolar I disorder with duy F31.10 [facility] [id number] [place] [address] 67705- 4685 Jan, Bipolar 2 disorder F31.81 ; Chronic post-traumatic stress disorder (PTSD) F43.12 and Type 2 diabetes mellitus with hyperglycemia E11.65 [facility] [id number] [place] [address] 06441- 6337 Jan, [facility] [id number] [place] [address] 94025- 1142 Jan, [facility] [id number] [place] [address] 38842- 5095 14 Jan, 2017 Panic disorder with agoraphobia F40.01 [facility] [id number] [place] [address] 62311- 7950 Jan, Panic disorder with agoraphobia F40.01 ; Bipolar I disorder with mood-congruent psychotic features F31.9 ; Chronic post-traumatic stress disorder (PTSD) F43.12 and Epilepsy G40.909 [facility] [id number] [place] [address] 54293- 9986 Jan, [facility] [id number] [place] [address] 94691- 6704 Jan, [facility] [id number] [place] [address] 11179- 4112 10 Jan, 2017 Type 2 diabetes mellitus without complications E11.9 and Hypoglycemia E16.2 [facility] [id number] [place] [address] 44317- 8929 07 Jan, 2017 Type 2 diabetes mellitus without complications E11.9 ; Primary insomnia F51.01 and Hypertension, benign I10 [facility] [id number] [place] [address] 06293- 8595 Jan, [facility] [address] [id number] Jan, [facility] [id number] [place] [address] 93317- 1119 Dec, Type 2 diabetes mellitus with hyperglycemia E11.65 [place] [id number] [place] [address] 21959- 8316 Dec, [place] [address] 25228- 8367 Dec, Bipolar 2 disorder F31.81 ; Panic disorder with agoraphobia F40.01 ; Chronic post-traumatic stress disorder (PTSD) F43.12 and Epilepsy G40.909 [facility] [id number] [place] [address] 47207- 4312 Dec, [facility] [id number] [place] [address] 50336- 1168 Dec, [facility] [id number] [place] [address] 70786- 2046 Dec, Bipolar 2 disorder F31.81 ; Panic disorder with agoraphobia F40.01 ; Chronic post-traumatic stress disorder (PTSD) F43.12 and Epilepsy G40.909 [facility] [id number] [place] [address] 53117- 6666 Dec, [facility] [id number] [place] [address] 16556- 6049 Dec, [facility] [id number] [place] [address] 57255- 7749 Dec, [facility] [address] 62188- 3014 Dec, Type 2 diabetes mellitus with hyperglycemia E11.65 ; FDC current use of insulin Z79.4 and Lumbago M54.5 [place] [address] 37093- 9544 Dec, [facility] [address] 41048- 1314 Dec, [place] [address] 06716- 2762 Dec, [facility] [address] 85191 -7018 Dec, Pain of left leg M79.605 and Pain in right leg M79.604 [place] [address] 28779- 5754 Dec, [facility] [address] 12865- 8190 Dec, Type 2 diabetes mellitus with hyperglycemia E11.65 [place] [id number] [place] [address] 82122- 8180 Dec, [facility] [address] 68553- 9117 Dec, Type 2 diabetes mellitus with hyperglycemia E11.65 ; keno 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 ; Vagina, candidiasis B37.3 and Other chronic pain G89.29 [place] [address] 04707- 8947 Nov, Panic disorder with agoraphobia F40.01 [place] [address] [id number] [place] [id number] Nov, [place] [address] [address] Nov, [facility] [id number] [address] Nov, Hypoglycemia E16.2 [facility] [id number] [address] Nov, [facility] [id number] [place] [id number] Nov, [facility] [id number] [place] [id number]- [address] Nov, [facility] [id number] [place] [address]- [address] Nov, Type 2 diabetes mellitus with hyperglycemia E11.65 and keno 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 [place] [id number] [address] Nov, Panic disorder with agoraphobia F40.01 ; Bipolar 2 disorder F31.81 ; Chronic post-traumatic stress disorder (PTSD) F43.12 and Epilepsy G40.909 [place] [id number] [place] [id number]- [address] Nov, Panic disorder with agoraphobia F40.01 [place] [address], [place] [address] Oct, [facility] [address], [place] [address] Oct, [facility] [address], [place] [address] Oct, Bipolar 2 disorder F31.81 ; Panic disorder with agoraphobia F40.01 and Mood disorder F39 [facility] [address], [place] [address] Oct, Diabetes E11.9 ; Type 2 diabetes mellitus with hyperglycemia E11.65 and FDC current use of insulin Z79.4 [facility] [address], [place] [address] Oct, [facility] [id number] [place] [address] 06725- 3916 Sep, [facility] [id number] [place] [address] 16411- 3420 Sep, Bipolar 2 disorder F31.81 and Mood disorder F39 [facility] [id number] [place] [address] 24142- 9247 Sep, [facility] [id number] [place] [address] 96188- 9540 Sep, Uncontrolled type 2 diabetes mellitus without complication, without long-term current use of insulin E11.65 [facility] [id number] [place] [address] 84076- 7817 Sep, [facility] [id number] [place] [address] 41759- 7517 Sep, [facility] [id number] [place] [address] 00438- 9752 Sep, [facility] [id number] [place] [address] 19229- 5583 Sep, [facility] [id number] [place] [address] 43403- 2724 Sep, Bipolar 2 disorder F31.81 ; Chronic post-traumatic stress disorder (PTSD) F43.12 ; Panic disorder with agoraphobia F40.01 and Epilepsy G40.909 [facility] [address], [place] [address] 4[address] 11 Sep, 2016 Bipolar 2 disorder F31.81 ; PTSD (post-traumatic stress disorder) F43.10 and Panic disorder with agoraphobia F40.01 [facility] [address], [place] [address] 07 Sep, 2016 [facility] [id number] [place] [address] 84872- 5024 Aug, History of seizures Z87.898 ; Panic disorder with agoraphobia F40.01 and Bipolar 2 disorder F31.81 [facility] [id number] [place] [address] 78541- 6913 19 Aug, 2016 [facility] [id number] [place] [address] 10728- 4997 17 Aug, 2016 [facility] [address] 52018- 5494 Aug, [facility] [id number] [place] [address] 47675- 5358 Aug, [facility] [address] 16068- 4827 Aug, [facility] [id number] [place] [address] 53982- 4779 Aug, [facility] [address] 53339- 6621 Aug, Hypoglycemia E16.2 and Bilateral impacted cerumen H61.23 [facility] [address] 67135- 5721 Aug, [facility] [id number] [place] [address] 36891- 0351 21 Jul, 2016 [facility] [id number] [place] [address] 66782- 0802 21 Jul, 2016 [facility] [id number] [place] [address] 83896- 8503 15 Jul, 2016 Bipolar 2 disorder F31.81 ; Panic disorder with agoraphobia F40.01 ; PTSD (post-traumatic stress disorder) F43.10 and Epilepsy G40.909 [facility] [id number] [place] [address] 44622- 4815 12 Jul, 2016 [facility] [id number] [place] [address] 97128- 4252 Jul, Type 2 diabetes mellitus without complications E11.9 and Coughing R05 [facility] [id number] [place] [address] 11041- 5511 Jul, [facility] [id number] [place] [address] 41452- 7084 Jun, [facility] [id number] [place] [address] 79793- 0213 Jun, Bipolar 2 disorder F31.81 ; PTSD (post-traumatic stress disorder) F43.10 and Panic disorder with agoraphobia F40.01 [facility] [id number] [place] [address] 99399- 4302 Jun, [facility] [address] [address] [id number] [place] [address] 85107- 6533 Jun, [facility] [id number] [place] [address] 64107- 6598 Jun, [facility] [id number] [place] [address] 18445- 9286 Jun, Type 2 diabetes mellitus without complications E11.9 and COPD (chronic obstructive pulmonary disease) J44.9 [facility] [id number] [place] [address] [id number] May, Dental examination Z01.20 and Dental caries K02.9 [facility] [id number] [place] [address] 01268- 1951 May, Bipolar 2 disorder F31.81 ; PTSD (post-traumatic stress disorder) F43.10 and Panic disorder with agoraphobia F40.01 [facility] [id number] [place] [address] 13955- 0613 May, Lumbago with sciatica, right side M54.41 ; Other chronic pain G89.29 and Uncontrolled type 2 diabetes mellitus without complication, without long-term current use of insulin E11.65 [facility] [id number] [place] [address] 89665- 5472 May, Chronic bronchitis, unspecified chronic bronchitis type J42 [place] [id number] [place] [address] 06986- 6442 May, [facility] [facility] [address] [address] [id number] [place] [address] 35454- 5604 May, [place] [address] [place] [address] [id number] [place] [address] 16095- 4973 May, Chest pain, unspecified type R07.9 ; Tobacco use Z72.0 ; Type 2 diabetes mellitus without complications E11.9 ; Essential hypertension I10 ; Hyperlipidemia, unspecified hyperlipidemia type E78.5 ; Obesity (BMI 30- 39.9) E66.9 ; History of hypothyroidism Z86.39 ; Chronic obstructive pulmonary disease, unspecified COPD type J44.9 ; Anxiety F41.9 ; Bilateral claudication of lower limb I73.9 and Bipolar [address] 59991- 1332 May, Bipolar 2 disorder F31.81 ; Panic disorder with agoraphobia F40.01 and Tobacco abuse Z72.0 [place] [id number] [place] [address] 09647- 1174 Apr, [place] [id number] [place] [address] 92168- 9820 Apr, [place] [id number] [place] [address] 76188- 9401 Apr, [place] [id number] [place] [address] 93726- 8809 Apr, Bipolar 2 disorder F31.81 ; Panic disorder with agoraphobia F40.01 and PTSD (post-traumatic stress disorder) F43.10 [place] [id number] [place] [address] 68525- 8575 Apr, Chronic bronchitis, unspecified chronic bronchitis type J42 ; Cervical neuritis M54.12 and Thoracic neuritis M54.[address] [place] [id number] [place] [address] 02114- 7503 15 Apr, 2016 [facility] [id number] [place] [address] 56820- 8532 15 Apr, 2016 Cervicalgia M54.2 [facility] [id number] [place] [address] 70703- 0097 14 Apr, 2016 Bipolar 2 disorder F31.81 ; Panic disorder with agoraphobia F40.01 and PTSD (post-traumatic stress disorder) F43.10 [facility] [id number] [place] [address] 52083 -2478 13 Apr, 2016 [facility] [id number] [place] [address] 55284 -4049 09 Apr, 2016 Cough R05 and Tobacco dependence F17.200 [place] [address] 95511- 8794 06 Apr, 2016 [facility] [id number] [place] [address] 07102- 2203 06 Apr, 2016 [facility] [address] [id number] [place] [address] 03620- 2704 March, Bipolar 2 disorder F31.81 ; Panic disorder with agoraphobia F40.01 and Generalized anxiety disorder F41.1 [place] [address] [place] [address] [id number] [place] [address] 13492- 7174 March, Closed displaced fracture of fifth metatarsal bone of right foot with routine healing, subsequent encounter S92.351D [facility] [address] [id number] [place] [address] 50591- 1563 March, Bronchitis J40 [facility] [address] [id number] [place] [address] 07684- 3220 March, [facility] [address] [id number] [place] [address] 86936- 6718 March, [facility] [address] [address] [id number] [place] [address] 60224- 8033 March, Foot pain, right M79.671 ; Cervicalgia M54.2 and 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 mellitus without complication, unspecified keno terminal operator insulin use status E11.9 [place] [address] [place] [address] [id number] [place] [address] 28375- 7021 March, Fracture of fifth metatarsal bone of right foot S92.351A [place] [address] 45478- 6048 March, [place] [address] 76639- 1013 Jan, Fracture of fifth metatarsal bone of right foot S92.351A [place] [address] 29496- 3346 Jan, Bipolar 2 disorder F31.81 ; PTSD (post-traumatic stress disorder) F43.10 ; Panic disorder with agoraphobia F40.01 and Epilepsy G40.909 [place] [address] [place] [id number] [place] [address] 93281- 4200 Jan, History of IN (myocardial infarction) I25.2 and History of high cholesterol Z86.39 [place] [address] 10568- 7588 Jan, Bipolar 2 disorder F31.81 ; Panic disorder with agoraphobia F40.01 ; Tobacco abuse Z72.0 and PTSD (post-traumatic stress disorder) F43.10 [place] [address] [place] [id number] [place] [address] 69707- 5755 Jan, Fracture of fifth metatarsal bone of right foot S92.351A [place] [address] 75912- 3568 Jan, [place] [address] 52581- 5472 Jan, History of high cholesterol Z86.39 [place] [address] [place] [address]- 9854 Jan, History of IN (myocardial infarction) I25.2 [place] [address] 07391- 4728 Jan, [place] [address] 75029- 3909 Dec, Back pain M54.9 ; Diabetes E11.9 ; Right knee pain M25.561 and Chest pain R07.9 [place] [address] 13338- 1355 Dec, [place] [address] 63316- 5007 Dec, [place] [address] 31126- 5097 Dec, Cervicalgia M54.2 [place] [address] 36882- 6777 Dec, Bipolar 2 disorder F31.81 ; PTSD (post-traumatic stress disorder) F43.10 ; Panic disorder with agoraphobia F40.01 and Epilepsy G40.909 [place] [address] 03984- 1085 Dec, Bipolar 2 disorder F31.81 ; PTSD (post-traumatic stress disorder) F43.10 and Panic disorder with agoraphobia F40.01 [place] [address] [place] [id number] [place] [address] 82483- 9677 Dec, Diabetes E11.9 [place] [address] [place] [address] [id number] [place] [address] 60678- 5699 Dec, [place] [address] 29372- 2117 Dec, Other chronic pain G89.29 ; Hepatitis C B19.20 and History of seizures Z87.898 [place] [address] 99865- 4275 Dec, [facility] [id number] [place] [address] 37604- 0360 Dec, Bipolar 2 disorder F31.81 and Other chronic pain G89.29 [facility] [id number] [place] [address] 62259- 1650 Dec, Cervicalgia M54.2 and Diabetes E11.9 [facility] [address] 47152- 2899 Dec, [facility] [id number] [place] [address] 86577- 3296 Dec, [facility] [address] 06288- 6788 Dec, [facility] [id number] [place] [address] 68499- 4522 Dec, [facility] [id number] [place] [address] 26861- 6939 Dec, Type 2 diabetes mellitus without complications E11.9 [facility] [id number] [place] [address] 20623- 2261 10 Dec, 2015 [facility] [id number] [place] [address] 75053- 2666 09 Dec, 2015 History of seizures Z87.898 and Hepatitis C B19.20 [facility] [id number] [place] [address] 86435- 4768 08 Dec, 2015 Hepatitis C B19.20 [facility] [id number] [place] [address] 12451- 7057 Dec, [facility] [id number] [place] [address] 07156- 2530 04 Dec, 2015 Cervicalgia M54.2 ; COPD (chronic obstructive pulmonary disease) J44.9 and Hepatitis C B19.20 [facility] [address] [place] [address]- 6248 02 Dec, 2015 Bipolar 2 disorder F31.81 ; History of hypertension Z86.79 ; History of anxiety Z86.59 ; Panic disorder with agoraphobia F40.01 and Epilepsy G40.909 [place] [address] [place] [id number] [place] [address] 93369- 7944 Nov, [address] 43699- 5045 Nov, [address] 18970- 2287 Nov, History of seizures Z87.898 ; OAB (overactive bladder) N32.81 ; Lumbago M54.5 ; Other chronic pain G89.29 ; Cervicalgia M54.2 ; Tobacco abuse Z72.0 ; Tobacco abuse counseling Z71.6 and Impaired fasting glucose R73.[address] 11048- 6501 Nov, Bipolar 2 disorder F31.81 ; PTSD (post-traumatic stress disorder) F43.10 ; History of anxiety Z86.59 ; History of COPD Z87.09 ; Panic disorder with agoraphobia F40.01 and Moderate depressed bipolar I disorder F31.32 [place] [id number] [place] [address] 59534- 0860 Nov, PTSD (post-traumatic stress disorder) F43.10 [facility] [id number] [place] [address] [id number] 11 Nov, 2015 Dental examination Z01.20 and Dental caries K02.[address] 37480- 8101 08 Nov, 2015 History of hypertension Z86.79 ; History of hypothyroidism Z86.39 ; History of high cholesterol Z86.39 ; History of COPD Z87.09 and Overactive bladder N32.[address] 53907- 5256 Nov, Bipolar 2 disorder F31.81 and PTSD (post-traumatic stress disorder) F43.10 [place] [id number] [place] [address] 49084- 8675 Nov, PTSD (post-traumatic stress disorder) F43.10 ; Panic disorder with agoraphobia F40.01 ; Epilepsy G40.909 and Moderate depressed bipolar I disorder F31.32 [place] [address] 61732- 2610 Nov, [place] [address] [id number] [place] [address] 12334- 5468 Nov, [place] [id number] [place] [address] 44486- 6825 Oct, [address] 60454- 7467 Oct, Generalized anxiety disorder F41.1 ; Major depression, recurrent F33.9 and PTSD (post-traumatic stress disorder) F43.10 [place] [id number] [place] [address] 47159- 2589 Oct, Elevated fasting glucose R73.01 [place] [id number] [place] [address] 27971- 0373 Oct, Elevated fasting glucose R73.01 [place] [id number] [place] [address] 99918- 3151 Oct, History of COPD Z87.09 [place] [id number] [place] [address] 04113- 6033 15 Oct, 2015 General medical exam Z00.00 ; History of hypertension Z86.79 ; History of hypothyroidism Z86.39 ; History of hepatitis Z86.19 ; History of high cholesterol Z86.39 and History of seizures Z87.898 [place] [id number] [place] [address] 68510- 3530 10 Oct, 2015 General medical exam Z00.00 ; History of hypertension Z86.79 ; History of hypothyroidism Z86.39 ; Bipolar 2 disorder F31.81 ; PTSD ( post-traumatic stress disorder) F43.10 ; History of hepatitis Z86.19 ; History of high cholesterol Z86.39 ; History of anxiety Z86.59 ; History of seizures Z87.898 ; History of IN (myocardial infarction) I25.2 and History of COPD Z87.09 [facility] [id number] [place] [address] 92836- 5052 Oct, Generalized anxiety disorder F41.1 ; Depression F32.9 and PTSD (post-traumatic stress disorder) F43.10 [facility] [address] [place] [address] 11873- 9960 Jan, [place] [id number] [place] [address] 45723- 2619 Jan, [facility] [id number] [place] [address] 50841- 6155 Jun, [facility] [address] [place] [id number] Jun, [facility] [id number] [place] [address] 53245- 4471 May, [facility] [id number] [place] [address] 89855- 7241 May, [facility] [address] [id number] May, [facility] [id number] [place] [address] 74308- 7964 May, [facility] [address] [id number] May, [facility] [id number] [place] [address] 15403- 2546 May, IMMUNIZATIONS No Known Immunizations SOCIAL HISTORY Never Assessed REASON FOR VISIT yana/johnny Goldberg MA , Mood, trauma, anxiety PLAN OF CARE Activity Details Follow Up 2 Months Reason: VITAL SIGNS Height 62 in 2018-04-22 Weight 164.6 lbs 2018-04-22 Heart Rate 82 bpm 2018-04-22 Respiratory Rate 20 2018-04-22 Oximetry on room air:97 % 2018-04-22 BMI 30.10 kg/m2 2018-04-22 Blood pressure systolic 130 mmHg 2018-04-22 Blood pressure diastolic 70 mmHg 2018-04-22 MEDICATIONS Medication Instructions Dosage Frequency Start Date End Date Duration Status Cromolyn Sodium 4 % Ophthalmic Four times a day 1 drop into affected eye 6h 11 Apr, 2018 Active Ventolin HFA 108 (90 Base) MCG/ACT Inhalation every 6 hrs 2 puffs as needed 6h Active Nebulizer 1 as directed Apr, Active Lipitor 40 mg Orally Once a day 1 tablet 24h Active Cali Contour Next Test - In Vitro 3 times a day as directed 8h March, Active Nicoderm CQ 14 MG/24HR Transdermal Once a day 1 patch to skin 24h Apr, Jun, 30 day(s) Active Zofran ODT 4 MG Orally Every 8 hours PRN 1 tablet on the tongue and allow to dissolve 5 days Not-Taking Insulin Syringe 31G X 5/16 subcutaneously 4 times a day Inject insulin 4 times daily as prescribed 6h Oct, Active Levemir 100 UNIT/ML Subcutaneous 2 times a day Inject 50 units 12h Dec, Active Promethazine-Codeine 6.25-10 MG/5ML Orally every 6 hrs 5 ml as needed 6h March, Not-Taking [place] 10-325 MG Orally 3 times a day 1 tablet as needed 8h Apr, 28 days Active NovoLog 100 UNIT/ML DX E11.9 3 times a day before meals Inject 30 units Dec, Active Protonix 40 MG Orally Once a day 1 tablet 24h Jan, 30 day(s) Active Albuterol Sulfate 1.25 MG/3ML Inhalation 4 times a day 3 ml as needed 6h Apr, Active Amitriptyline HCl 50 MG Orally Once at bedtime for sleep 1 tablet March 30 day(s) Active Zyprexa 2.5 MG Orally Once a day 1 tablet 24h Apr, 30 day(s) Active Metoprolol Tartrate 25 MG Orally Twice a day for panic 1 tablet with food March, 30 day(s) Not-Taking Blood Glucose Monitor System w/Device DX- E11.9 Test fasting and 2 hours after meal test 3 times per day Dec, Active Atenolol 50 mg Orally Once a day 1 tablet 24h 30 Active Ditropan XL 10 mg Orally Once a day 1 tablet 24h Jan, Jun, 30 day(s) Active Symbicort 160-4.5 MCG/ACT Inhalation Twice a day- rinse mouth and spit after use 2 puffs every day Apr, Active Minipress 1 MG Orally Once a day for nightmares 1 capsule at bedtime Apr, Active Microlet Lancets - as directed 8h March, Active Blood Glucose Test Strip And lancets. DX E11.9 Test fasting and 2 hours after meal test 3 times per day Dec, Active Blood Glucose Monitor 1 glucometer test blood sugar Apr, Active Xanax 2 MG Orally 3 times a day and can take 1/2 additional tablet for panic 1 tablet Active Xyzal 5 MG Orally Once a day 1 tablet in the evening 24h 30 Active Levothyroxine Sodium 150 MCG Orally Once a day 1 tablet 24h Oct, Active Aspirin 81 MG TAKE ONE TABLET BY MOUTH ONCE DAILY 30 Active Montelukast Sodium 10 mg Orally Once a day 1 tablet 24h Oct, 30 days Active Cyclobenzaprine HCl 10 mg Orally Three times a day 1 tablet as needed 8h Apr, 30 days Not-Taking RESULTS No Results PROCEDURES No Known procedures INSTRUCTIONS MEDICATIONS ADMINISTERED No Known Medications MEDICAL (GENERAL) HISTORY Type Description Date Medical History Hypothyroidism Medical History High cholesterol Medical History Hypertension Medical History Brain seizure Medical History Asthma Medical History COPD Medical History Hep C -2005 Medical History IN x 2 last in 2009 Medical History PTSD (post-traumatic stress disorder) Medical History Colon Cancer 2016 Medical History diabites II Surgical History tonsillectomy 1985 Surgical History partial hysterectomy 2004 Surgical History appendectomy 2004 Hospitalization History Surgery(s) only Hospitalization History pneumonia x3 days Hospitalization History Heart cath with stint 05/15/2016 Hospitalization History Diverticulitis, N/V-[facility] 01/28/17
[2019-01-26 07:34] VITALS: BP 125/87
--- OUTSIDE RECORDS SUMMARY | 2019-01-26 07:34 | XMS REPORT ---
Author Author GERARDO KISER [facility] Address [address] [place] [address] Care Team Providers Care Supervisor Special Effects Name Role Phone MARGI GERARDO Unavailable PROBLEMS Type Condition ICD9-CM Code [id number] Code Onset Dates Condition Status SNOMED Code Problem OAB (overactive bladder) N32.81 Active 102474054 Problem Epilepsy G40.909 Active 76161477 Problem Cervicalgia M54.2 Active 98738189 Problem Other chronic pain G89.29 Active 43061082 Problem Tobacco abuse Z72.0 Active 80361293 Problem Lumbago M54.5 Active 459174609 Problem Hepatitis C B19.20 Active 56795130 Problem COPD (chronic obstructive pulmonary disease) J44.9 Active 58247276 Problem Diabetes E11.9 Active 54980152 Problem Bipolar I disorder with duy F31.10 Active 73376486 Problem Type 2 diabetes mellitus without complications E11.9 Active 744673102 Problem Stress incontinence of urine N39.3 Active 40302582 Problem Bilateral claudication of lower limb I73.9 Active 197492158 Problem Seasonal allergic rhinitis due to other allergic trigger J30.89 Active 676430402 Problem Hyperlipidemia, unspecified hyperlipidemia type E78.5 Active 71156076 Problem Hypertension, unspecified type I10 Active 30593392 Problem Chronic tension-type headache, not intractable G44.229 Active 413078505 Problem 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 mellitus without complication, without long -term current use of insulin E11.9 Active 723756552 Problem Type 2 diabetes mellitus with hyperglycemia E11.65 Active 019920870 Problem Chronic post-traumatic stress disorder (PTSD) F43.12 Active 980227704 Problem History of hypothyroidism Z86.39 Active 896107972 Problem Hypoglycemia E16.2 Active 281243316 Problem El's esophageal ulceration K22.10 Active 854324886 Problem Bipolar affective disorder, currently depressed, mild F31.31 Active 787545393 Problem Irritable bowel syndrome with diarrhea K58.0 Active 719033671 Problem Stress incontinence N39.3 Active 72890389 Problem History of hypertension Z86.79 Active 805264454 Problem Uncontrolled type 2 diabetes mellitus without complication, without long-term current use of insulin E11.65 Active 393257652 Problem Panic disorder with agoraphobia F40.01 Active 97544018 Problem Type 2 diabetes mellitus with hyperglycemia E11.65 Active 237281549 Problem History of seizures Z87.898 Active 514678717 Problem [facility] current use of insulin Z79.4 Active 860752287 Problem History of DE (myocardial infarction) I25.2 Active 577968032 Problem Mood disorder F39 Active 10640475 Problem Bipolar 2 disorder F31.81 Active 28964754 Problem Gastritis and duodenitis K29.90 Active 641837253 Problem History of high cholesterol Z86.39 Active 290603078 Problem Bipolar I disorder with mood-congruent psychotic features F31.9 Active 686733991 Problem Hypertension, benign I10 Active 65381976 Problem Primary insomnia F51.01 Active 0113646 ALLERGIES No Information ENCOUNTERS Encounter Location Date Diagnosis [facility] [id number] [place] [address] 71998- 3438 Jul, [facility] [id number] [place] [address] 74707- 1110 Jun, [facility] [id number] [place] [address] 44176- 2319 Jun, [facility] [id number] [place] [address] 95881- 0576 Jun, Lumbago M54.5 [facility] [id number] [place] [address] 35394- 4467 Jun, Type 2 diabetes mellitus with hyperglycemia E11.65 [facility] [address] 99296- 6073 Jun, [facility] [id number] [place] [address] 58580- 7467 Jun, Type 2 diabetes mellitus with hyperglycemia E11.65 ; El 's esophageal ulceration K22.10 and Lumbago M54.5 [facility] [address], [place] [address] 8103 Jun, Type 2 diabetes mellitus with hyperglycemia E11.65 [facility] [id number] [place] [address] 48162- 9406 Jun, [facility] [id number] [place] [address] 68970- 3482 Jun, [facility] [id number] [place] [address] 52494- 9784 Jun, Bipolar affective disorder, currently depressed, mild F31.31 ; Chronic post-traumatic stress disorder (PTSD) F43.12 and Panic disorder with agoraphobia F40.01 [facility] [address], [place] [address]- 2833 Jun, [facility] [id number] [place] [address] 69675- 8092 Jun, [facility] [address], [place] [address]- 0738 Jun, Type 2 diabetes mellitus with hyperglycemia E11.65 [facility] [id number] [place] [address] 28258- 7049 Jun, Uncontrolled type 2 diabetes mellitus with hyperglycemia E11.65 [facility] [address], [place] [address]- 9907 Jun, [facility] [id number] [place] [address] 29769- 6756 May, Lumbago M54.5 [facility] [id number] [id number] May, [facility] [address], [place] [address]- 0848 May, [facility] [address], [place] [address]- 3261 May, [facility] [id number] [address]- 7593 May, [facility] [id number] [place] [address] 24527- 1767 May, [facility] [id number] [place] [address] 63851- 2445 May, [facility] [id number] [place] [address] 87772- 4472 May, [facility] [id number] [place] [address] 66901- 3629 May, Lumbago M54.5 [facility] [id number] [place] [address] 63955- 0602 May, [facility] [id number] [place] [address] 30206- [address], [address] of the chest R93.8 [facility] [id number] [place] [address] 77981- 3332 Apr, Bipolar 2 disorder F31.81 ; Chronic post-traumatic stress disorder (PTSD) F43.12 and Panic disorder with agoraphobia F40.01 [facility] [address] [place] [address] 88493- [address] Apr, [address] of the chest R93.8 [facility] [address] [place] [address] 88075- [address], [address] of the chest R93.8 [facility] [address] [place] [address] 62354- 5770 Apr, [facility] [id number] [place] [address] 77379- 6148 Apr, Type 2 diabetes mellitus with hyperglycemia E11.65 [facility] [address] [place] [address] 39731- 3028 Apr, 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 mellitus without complication, without long-term current use of insulin E11.9 ; Watery eyes H04.203 ; Low back pain M54.5 ; Other chronic pain G89.29 ; Chronic tension-type headache, not intractable G44.229 ; Uncontrolled type 2 diabetes mellitus without complication , without long-term current use of insulin E11.65 and Bronchitis J40 [facility] [id number] [place] [address] 76674- 5275 Apr, [facility] [address] 28403- 8127 Apr, Lumbago M54.5 [facility] [id number] [place] [address] 27455- 4645 March, [facility] [id number] [place] [address] 34571 -1532 March, Cough R05 ; Pneumonia due to infectious organism, unspecified laterality, unspecified part of lung J18.9 and Non-intractable vomiting with nausea, unspecified vomiting type R11.2 [facility] [id number] [place] [address] 54948- 2374 March, Bronchitis J40 [facility] [address] 49238- 7230 March, [facility] [id number] [place] [address] 22461- 3441 March, El's esophageal ulceration K22.10 and Type 2 diabetes mellitus with hyperglycemia E11.65 [facility] [id number] [place] [address] 83413- 3703 March, Panic disorder with agoraphobia F40.01 ; Chronic post- traumatic stress disorder (PTSD) F43.12 and Bipolar 2 disorder F31.81 [facility] [id number] [place] [address] 28617- 1114 March, Type 2 diabetes mellitus with hyperglycemia E11.65 [facility] [id number] [place] [address] 33991- 9306 March, [facility] [id number] [address]- 9480 March, Lumbago M54.5 [facility] [id number] [place] [address] 51818- 2736 March, [facility] [id number] [place] [address] 17626- 5018 March, Irritable bowel syndrome with diarrhea K58.0 ; Primary insomnia F51.01 ; Type 2 diabetes mellitus with hyperglycemia E11.65 and 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 [facility] [id number] [place] [address] 64741- 7282 March, [facility] [id number] [place] [address] 48055- 4391 Jan, [facility] [id number] [place] [address] 30705- 5599 Jan, [facility] [id number] [place] [address] 87802- 2419 Jan, [facility] [id number] [place] [address] 78831- 2570 Jan, [facility] [id number] [place] [address] 74167- 7190 Jan, Dizziness R42 [facility] [id number] [place] [address] 38285- 8436 Jan, Bipolar affective disorder, currently depressed, mild F31.31 ; Panic disorder with agoraphobia F40.01 and Chronic post-traumatic stress disorder (PTSD) F43.12 [facility] [id number] [place] [address] 37734- 7193 Jan, Dizziness R42 [facility] [id number] [place] [address] 92569- 4004 Jan, Chest pain, unspecified type R07.9 ; Exertional dyspnea R06.09 ; Hypertension, unspecified type I10 and Hyperlipidemia, unspecified hyperlipidemia type E78.5 [facility] [id number] [place] [address] 12930- 9233 Jan, [facility] [address] 58112- 3290 09 Jan, 2018 Lumbago M54.5 [facility] [id number] [place] [address] 17354- 4810 04 Jan, 2018 El's esophageal ulceration K22.10 ; Blister (nonthermal ) of oral cavity, initial encounter S00.522A ; Local infection of the skin and subcutaneous tissue, unspecified L08.9 ; Type 2 diabetes mellitus with hyperglycemia E11.65 ; 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 and Stress incontinence N39.3 [facility] [id number] [place] [address] 42063- 1538 27 Dec, 2017 [facility] [id number] [place] [address] 26729- 1701 27 Dec, 2017 [facility] [id number] [place] [address] 24654- 2565 19 Dec, 2017 [facility] [address] [id number] Dec, 2017 Dental examination Z01.20 [facility] [id number] [place] [address] 19130- 8369 15 Dec, 2017 Acute pain of right knee M25.561 [facility] [id number] [place] [address] 30402- 6009 14 Dec, 2017 [facility] [id number] [place] [address] 60595- 2794 14 Dec, 2017 [facility] [id number] [place] [address] 64370- 1770 14 Dec, 2017 Lumbago M54.5 ; Acute pain of right knee M25.561 and Seasonal allergic rhinitis due to other allergic trigger J30.89 [facility] [id number] [place] [address] 79185- 5274 Dec, Type 2 diabetes mellitus with hyperglycemia E11.65 [facility] [address], [place] [address]- 2549 Dec, [facility] [id number] [place] [address] 98521- 0476 Dec, [facility] [id number] [place] [address] 26344- 9527 Dec, [facility] [id number] [place] [address] 32073- 9100 Dec, [facility] [id number] [place] [address] 75110- 2280 Dec, Chronic post-traumatic stress disorder (PTSD) F43.12 and Panic disorder with agoraphobia F40.01 [facility] [id number] [place] [address] 27141- 8025 13 Dec, 2017 Low back pain M54.5 [facility] [id number] [place] [address] 89081- 4918 12 Dec, 2017 Type 2 diabetes mellitus with hyperglycemia E11.65 ; [facility] current use of insulin Z79.4 ; Low back pain M54.5 ; Other chronic pain G89.29 and Encounter for therapeutic drug level monitoring Z51.81 [facility] [id number] [place] [address] 08665- 9747 09 Dec, 2017 Coughing R05 [facility] [id number] [place] [address] 19279- 7754 Dec, [facility] [id number] [place] [address] [id number] 07 Dec, 2017 Dental examination Z01.20 [facility] [id number] [place] [address] 64338- 8924 Nov, Type 2 diabetes mellitus without complications E11.9 and Encounter for therapeutic drug level monitoring Z51.81 [facility] [id number] [place] [address] 01832- 3956 Nov, [facility] [address], [place] [address]- 4490 Oct, Type 2 diabetes mellitus without complications E11.9 [facility] [id number] [place] [address] 47810- 3517 Oct, Type 2 diabetes mellitus with hyperglycemia E11.65 [facility] [id number] [place] [address] 88690- 6454 Aug, Type 2 diabetes mellitus without complications E11.9 [facility] [id number] [place] [address] 87441- 0322 Aug, Type 2 diabetes mellitus without complications E11.9 ; Hypoglycemia E16.2 ; Lumbago M54.5 ; Stress incontinence of urine N39.3 and History of DE (myocardial infarction) I25.2 [facility] [id number] [place] [address] 41458- 1219 Jun, [facility] [id number] [place] [address] 31537- 3856 May, [facility] [id number] [place] [address] 70299- 0739 Apr, Panic disorder with agoraphobia F40.01 [facility] [id number], [place] [address]- 6251 Apr, Panic disorder with agoraphobia F40.01 [facility] [address], [place] [address]- 4326 Apr, [facility] [id number] [place] [address] 06647- 5228 March, Other chronic pain G89.29 [facility] [id number], [place] [address]- 8939 March, [facility] [id number], [place] [address]- 1169 March, [facility] [address], [place] [address]- 1373 March, [facility] [id number] [place] [address] 68997- 9015 March, [facility] [id number] [place] [address] 35801- 9961 March, Type 2 diabetes mellitus without complications E11.9 [facility] [id number] [place] [address] 33933- 8437 16 Mar, 2017 Diarrhea, unspecified type R19.7 [facility] [id number] [place] [address] 51370- 2325 March, Bipolar 2 disorder F31.81 ; Chronic post-traumatic stress disorder (PTSD) F43.12 and Type 2 diabetes mellitus with hyperglycemia E11.65 [facility] [id number] [place] [address] 88012- 2944 March, [facility] [id number] [place] [address] 76574- 0681 March, [facility] [address] [place] [address] 86372- 3743 March, Hypertension, benign I10 ; Type 2 diabetes mellitus with hyperglycemia E11.65 ; Hepatitis C B19.20 ; Gastritis and duodenitis K29.90 and Dysuria R30.0 [facility] [address] [place] [address] 91538- 6651 March, Hypertension, benign I10 ; Type 2 diabetes mellitus with hyperglycemia E11.65 ; Hepatitis C B19.20 ; Gastritis and duodenitis K29.90 and Dysuria R30.0 [facility] [id number] [place] [address] 29036- 5238 March, Panic disorder with agoraphobia F40.01 ; Chronic post- traumatic stress disorder (PTSD) F43.12 ; Epilepsy G40.909 and Bipolar I disorder with mood-congruent psychotic features F31.9 [facility] [id number], [place] [address]- 9369 March, [facility] [id number] [place] [address] 96296- 3745 March, Type 2 diabetes mellitus with hyperglycemia E11.65 [facility] [id number] [place] [address] 60963- 2689 18 Jan, 2017 Bipolar I disorder with duy F31.10 [facility] [id number] [place] [address] 63996- 0526 17 Jan, 2017 Bipolar 2 disorder F31.81 ; Chronic post-traumatic stress disorder (PTSD) F43.12 and Type 2 diabetes mellitus with hyperglycemia E11.65 [facility] [id number] [place] [address] 62727- 5792 Jan, [facility] [id number] [place] [address] 15586- 4470 Jan, [facility] [id number] [place] [address] 93216- 4994 14 Jan, 2017 Panic disorder with agoraphobia F40.01 [facility] [id number] [place] [address] 51118- 3250 Jan, Panic disorder with agoraphobia F40.01 ; Bipolar I disorder with mood-congruent psychotic features F31.9 ; Chronic post-traumatic stress disorder (PTSD) F43.12 and Epilepsy G40.909 [facility] [address] [place] [address] 35501- 0783 Jan, [facility] [id number] [place] [address] 58842- 7719 Jan, [facility] [id number] [place] [address] 45340- 2182 Jan, Type 2 diabetes mellitus without complications E11.9 and Hypoglycemia E16.2 [facility] [id number] [place] [address] 01753- 1289 07 Jan, 2017 Type 2 diabetes mellitus without complications E11.9 ; Primary insomnia F51.01 and Hypertension, benign I10 [facility] [address], [place] [address]- 7241 Jan, [facility] [id number] [place] [address] [id number] Jan, [facility] [id number] [place] [address] 52771- 1955 Dec, Type 2 diabetes mellitus with hyperglycemia E11.65 [facility] [id number] [place] [address] 09340- 6118 Dec, [facility] [id number] [place] [address] 63001- 9333 Dec, Bipolar 2 disorder F31.81 ; Panic disorder with agoraphobia F40.01 ; Chronic post-traumatic stress disorder (PTSD) F43.12 and Epilepsy G40.909 [facility] [id number] [place] [address] 20110- 0055 Dec, [facility] [id number] [place] [address] 71201- 2454 Dec, [facility] [id number] [place] [address] 62885- 3928 Dec, Bipolar 2 disorder F31.81 ; Panic disorder with agoraphobia F40.01 ; Chronic post-traumatic stress disorder (PTSD) F43.12 and Epilepsy G40.909 [facility] [address] [place] [address] 46056- 1339 Dec, [facility] [id number] [place] [address] 16242- 0805 Dec, [facility] [id number] [place] [address] 76578- 8084 Dec, [facility] [address] [place] [address] 79354- 6689 Dec, Type 2 diabetes mellitus with hyperglycemia E11.65 ; 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 and Lumbago M54.5 [facility] [id number] [place] [address] 10309- 5817 Dec, [facility] [address] 77301- 0741 Dec, [facility] [address] 25555- 7411 Dec, [facility] [id number] [place] [address] 49265 -3774 Dec, Pain of left leg M79.605 and Pain in right leg M79.604 [facility] [address] 21351- 3883 Dec, [facility] [address] 82690- 3352 Dec, Type 2 diabetes mellitus with hyperglycemia E11.65 [facility] [id number] [place] [address] 11906- 4291 Dec, [facility] [address] 26170- 6968 Dec, Type 2 diabetes mellitus with hyperglycemia E11.65 ; [facility] current use of insulin Z79.4 ; Vagina, candidiasis B37.3 and Other chronic pain G89.29 [facility] [id number] [place] [address] 48022- 2289 Nov, Panic disorder with agoraphobia F40.01 [facility] [id number] [place] [address] 32261- 2032 Nov, [facility] [address] 06357- 5495 Nov, [facility] [id number] [place] [address] 73388- 7299 Nov, Hypoglycemia E16.2 [facility] [address] [place] [address]- 7130 Nov, [facility] [address], [place] [address]- 1641 Nov, [facility] [address], [place] [address]- 0466 Nov, [facility] [address] [place] [address] 85931- 2524 Nov, Type 2 diabetes mellitus with hyperglycemia E11.65 and 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 [facility] [address] [place] [address] 96287- 3626 Nov, Panic disorder with agoraphobia F40.01 ; Bipolar 2 disorder F31.81 ; Chronic post-traumatic stress disorder (PTSD) F43.12 and Epilepsy G40.909 [facility] [address] [place] [address] 73789- 7207 Nov, Panic disorder with agoraphobia F40.01 [facility] [address], [place] [address]- 5706 Oct, [facility] [address] [place] [address] 76638- 5733 Oct, [facility] [address], [place] [address]- 7588 Oct, Bipolar 2 disorder F31.81 ; Panic disorder with agoraphobia F40.01 and Mood disorder F39 [facility] [id number] [address] Oct, Diabetes E11.9 ; Type 2 diabetes mellitus with hyperglycemia E11.65 and [facility] current use of insulin Z79.4 [facility] [id number] [address] Oct, [facility] [id number] [address] Sep, [facility] [id number] [place] [address] 29 Sep, 2016 Bipolar 2 disorder F31.81 and Mood disorder F39 [facility] [id number] [place] [address] Sep, [facility] [id number] [place] [address] Sep, Uncontrolled type 2 diabetes mellitus without complication, without long-term current use of insulin E11.65 [facility] [id number] [place] [address] Sep, [facility] [id number] [place] [address] Sep, [facility] [id number] [place] [address]- 0073 Sep, [facility] [id number] [place] [address] 97828- 9509 Sep, [facility] [id number] [place] [address] 73115- 7780 Sep, Bipolar 2 disorder F31.81 ; Chronic post-traumatic stress disorder (PTSD) F43.12 ; Panic disorder with agoraphobia F40.01 and Epilepsy G40.909 [facility] [address] [address] Sep, Bipolar 2 disorder F31.81 ; PTSD (post-traumatic stress disorder) F43.10 and Panic disorder with agoraphobia F40.01 [facility] [address] [address] 15[address] Sep, [facility] [id number] [place] [address] 53922- 7868 Aug, History of seizures Z87.898 ; Panic disorder with agoraphobia F40.01 and Bipolar 2 disorder F31.81 [facility] [id number] [place] [address] 26849- 7829 Aug, [facility] [id number] [place] [address] 44983- 9285 17 Aug, 2016 [facility] [id number] [place] [address] 36397- 9065 Aug, [facility] [id number] [place] [address] 73927- 3662 Aug, [facility] [address] 73844- 9326 Aug, [facility] [id number] [place] [address] 06673- 5522 Aug, [facility] [address] 18447- 6060 10 Aug, 2016 Hypoglycemia E16.2 and Bilateral impacted cerumen H61.23 [facility] [address] 22076- 8012 Aug, [facility] [id number] [place] [address] 82488- 4523 21 Jul, 2016 [facility] [id number] [place] [address] 84447- 1720 21 Jul, 2016 [facility] [id number] [place] [address] 98151- 7987 15 Jul, 2016 Bipolar 2 disorder F31.81 ; Panic disorder with agoraphobia F40.01 ; PTSD (post-traumatic stress disorder) F43.10 and Epilepsy G40.909 [facility] [id number] [place] [address] 29190- 2222 12 Jul, 2016 [facility] [id number] [place] [address] 74954- 9621 09 Jul, 2016 Type 2 diabetes mellitus without complications E11.9 and Coughing R05 [facility] [id number] [place] [address] 52073- 6356 06 Jul, 2016 [facility] [address] [place] [address]- 9100 Jun, [facility] [id number] [place] [address] 11382- 5633 Jun, Bipolar 2 disorder F31.81 ; PTSD (post-traumatic stress disorder) F43.10 and Panic disorder with agoraphobia F40.01 [facility] [id number] [place] [address] 92007- 9413 Jun, [facility] [id number] [place] [address] 23046- 5488 Jun, [facility] [id number] [place] [address] 37227- 8380 Jun, [facility] [id number] [place] [address] 85463- 8185 Jun, Type 2 diabetes mellitus without complications E11.9 and COPD (chronic obstructive pulmonary disease) J44.9 [facility] [place] [facility] [id number] [place] [address] [id number] May, Dental examination Z01.20 and Dental caries K02.9 [facility] [id number] [place] [address] 68581- 4968 May, Bipolar 2 disorder F31.81 ; PTSD (post-traumatic stress disorder) F43.10 and Panic disorder with agoraphobia F40.01 [facility] [id number] [place] [address] 15098- 1044 May, Lumbago with sciatica, right side M54.41 ; Other chronic pain G89.29 and Uncontrolled type 2 diabetes mellitus without complication, without long-term current use of insulin E11.65 [facility] [id number] [place] [address] 80050- 1858 May, Chronic bronchitis, unspecified chronic bronchitis type J42 [facility] [id number] [place] [address] 34675- 5310 May, [facility] [address] [place] [address]- 0565 May, [facility] [id number] [place] [address] 22892- 8073 May, Chest pain, unspecified type R07.9 ; [...] and Bipolar 2 disorder F31.81 [facility] [address] 61271- 8000 May, Bipolar 2 disorder F31.81 ; Panic disorder with agoraphobia F40.01 and Tobacco abuse Z72.0 [facility] [address] 92877- 9750 Apr, [facility] [address] 89526- 2514 Apr, [facility] [address] 44749- 0780 Apr, [facility] [id number] [place] [address] 22851- 4580 Apr, Bipolar 2 disorder F31.81 ; Panic disorder with agoraphobia F40.01 and PTSD (post-traumatic stress disorder) F43.10 [facility] [id number] [place] [address] 42237- 1670 Apr, Chronic bronchitis, unspecified chronic bronchitis type J42 ; Cervical neuritis M54.12 and Thoracic neuritis M54.14 [facility] [id number] [place] [address] 72992- 2679 Apr, [facility] [id number] [place] [address] 44831- 0482 Apr, Cervicalgia M54.2 [facility] [id number] [place] [address] 92739- 2486 14 Apr, 2016 Bipolar 2 disorder F31.81 ; Panic disorder with agoraphobia F40.01 and PTSD (post-traumatic stress disorder) F43.10 [facility] [id number] [place] [address] 25995 -8194 13 Apr, 2016 [facility] [id number] [place] [address] 22561 -8049 09 Apr, 2016 Cough R05 and Tobacco dependence F17.200 [facility] [address] 05169- 8853 Apr, [facility] [address] 72056- 4883 Apr, [facility] [id number] [place] [address] 79031- 9917 March, Bipolar 2 disorder F31.81 ; Panic disorder with agoraphobia F40.01 and Generalized anxiety disorder F41.1 [facility] [id number] [place] [address] 56942- 7713 March, Closed displaced fracture of fifth metatarsal bone of right foot with routine healing, subsequent encounter S92.351D [facility] [id number] [place] [address] 38704- 2683 March, Bronchitis J40 [facility] [id number] [place] [address] 11610- 7203 March, [facility] [id number] [place] [address] 54386- 9405 March, [facility] [address] 29181- 4253 March, Foot pain, right M79.671 ; Cervicalgia M54.2 and 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 mellitus without complication, 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 [facility] [id number] [place] [address] 15607- 0232 March, Fracture of fifth metatarsal bone of right foot S92.351A [facility] [id number] [place] [address] 05153- 0472 March, [facility] [id number] [place] [address] 47862- 2307 Jan, Fracture of fifth metatarsal bone of right foot S92.351A [facility] [id number] [place] [address] 07422- 7669 Jan, Bipolar 2 disorder F31.81 ; PTSD (post-traumatic stress disorder) F43.10 ; Panic disorder with agoraphobia F40.01 and Epilepsy G40.909 [facility] [id number] [place] [address] 75713- 7077 Jan, History of DE (myocardial infarction) I25.2 and History of high cholesterol Z86.39 [facility] [id number] [place] [address] 19358- 2118 Jan, Bipolar 2 disorder F31.81 ; Panic disorder with agoraphobia F40.01 ; Tobacco abuse Z72.0 and PTSD (post-traumatic stress disorder) F43.10 [facility] [address] [place] [address] 86880- 1867 Jan, Fracture of fifth metatarsal bone of right foot S92.351A [facility] [id number] [place] [address] 74940- 3734 Jan, [facility] [id number] [place] [address] 41599- 9367 Jan, History of high cholesterol Z86.39 [facility] [id number] [place] [address] 25333- 0860 Jan, History of DE (myocardial infarction) I25.2 [facility] [id number] [place] [address] 39009- 0847 Jan, [facility] [id number] [place] [address] 07689- 8572 Dec, Back pain M54.9 ; Diabetes E11.9 ; Right knee pain M25.561 and Chest pain R07.9 [facility] [id number] [place] [address] 74105- 2731 Dec, [facility] [address] 53426- 5551 Dec, [facility] [address] 49455- 4962 Dec, Cervicalgia M54.2 [facility] [address] 92327- 9050 Dec, Bipolar 2 disorder F31.81 ; PTSD (post-traumatic stress disorder) F43.10 ; Panic disorder with agoraphobia F40.01 and Epilepsy G40.909 [facility] [address] 01334- 3549 Dec, Bipolar 2 disorder F31.81 ; PTSD (post-traumatic stress disorder) F43.10 and Panic disorder with agoraphobia F40.01 [facility] [id number] [place] [address] 34734- 4389 Dec, Diabetes E11.9 [facility] [id number] [place] [address] 49328- 8735 Dec, [facility] [id number] [place] [address] 58198- 9833 Dec, Other chronic pain G89.29 ; Hepatitis C B19.20 and History of seizures Z87.898 [facility] [address] 07382- 5560 Dec, [facility] [id number] [place] [address] 99489- 5489 Dec, Bipolar 2 disorder F31.81 and Other chronic pain G89.29 [facility] [id number] [place] [address] 73605- 3339 23 Dec, 2015 Cervicalgia M54.2 and Diabetes E11.9 [facility] [id number] [place] [address] 59499- 5941 18 Dec, 2015 [facility] [id number] [place] [address] 23256- 5509 Dec, [facility] [address] 16935- 8514 Dec, [facility] [id number] [place] [address] 42939- 1716 Dec, [facility] [id number] [place] [address] 11905- 0188 12 Dec, 2015 Type 2 diabetes mellitus without complications E11.9 [facility] [id number] [place] [address] 61581- 9594 10 Dec, 2015 [facility] [id number] [place] [address] 47776- 6030 09 Dec, 2015 History of seizures Z87.898 and Hepatitis C B19.20 [facility] [id number] [place] [address] 41857- 7219 08 Dec, 2015 Hepatitis C B19.20 [facility] [id number] [place] [address] 66214- 6050 Dec, [facility] [id number] [place] [address] 37427- 2482 Dec, Cervicalgia M54.2 ; COPD (chronic obstructive pulmonary disease) J44.9 and Hepatitis C B19.20 [facility] [id number] [place] [address] 31570- 7383 02 Dec, 2015 Bipolar 2 disorder F31.81 ; History of hypertension Z86.79 ; History of anxiety Z86.59 ; Panic disorder with agoraphobia F40.01 and Epilepsy G40.909 [facility] [address] [place] [address] 21195- 7228 Nov, [facility] [address] 38528- 0892 Nov, [facility] [id number] [place] [address] 13898- 7596 Nov, History of seizures Z87.898 ; OAB (overactive bladder) N32.81 ; Lumbago M54.5 ; Other chronic pain G89.29 ; Cervicalgia M54.2 ; Tobacco abuse Z72.0 ; Tobacco abuse counseling Z71.6 and Impaired fasting glucose R73.01 [facility] [address] 51208- 7516 Nov, Bipolar 2 disorder F31.81 ; PTSD (post-traumatic stress disorder) F43.10 ; History of anxiety Z86.59 ; History of COPD Z87.09 ; Panic disorder with agoraphobia F40.01 and Moderate depressed bipolar I disorder F31.32 [address] [id number] [place] [address] 58783- 5472 12 Nov, 2015 PTSD (post-traumatic stress disorder) F43.10 [facility] [place] [facility] [id number] [place] [address] [id number] 11 Nov, 2015 Dental examination Z01.20 and Dental caries K02.9 [place] [id number] [place] [address] 38419- 3873 08 Nov, 2015 History of hypertension Z86.79 ; History of hypothyroidism Z86.39 ; History of high cholesterol Z86.39 ; History of COPD Z87.09 and Overactive bladder N32.81 [facility] [id number] [place] [address] 08505- 9799 Nov, Bipolar 2 disorder F31.81 and PTSD (post-traumatic stress disorder) F43.10 [facility] [address] [place] [id number] [place] [address] 04500- 9004 Nov, PTSD (post-traumatic stress disorder) F43.10 ; Panic disorder with agoraphobia F40.01 ; Epilepsy G40.909 and Moderate depressed bipolar I disorder F31.32 [facility] [id number] [place] [address] 11933- 6645 Nov, [facility] [id number] [place] [address] 20451- 3059 Nov, [facility] [id number] [place] [address] 74147- 4354 Oct, [facility] [id number] [place] [address] 45903- 3658 Oct, Generalized anxiety disorder F41.1 ; Major depression, recurrent F33.9 and PTSD (post-traumatic stress disorder) F43.10 [facility] [id number] [place] [address] 31628- 6847 Oct, Elevated fasting glucose R73.01 [facility] [id number] [place] [address] 08490- 7331 Oct, Elevated fasting glucose R73.01 [facility] [id number] [place] [address] 68195- 9804 17 Oct, 2015 History of COPD Z87.09 [facility] [id number] [place] [address] 48488- 1802 15 Oct, 2015 General medical exam Z00.00 ; History of hypertension Z86.79 ; History of hypothyroidism Z86.39 ; History of hepatitis Z86.19 ; History of high cholesterol Z86.39 and History of seizures Z87.898 [facility] [id number] [place] [address] 99098- 9330 Oct, General medical exam Z00.00 ; History of hypertension Z86.79 ; History of hypothyroidism Z86.39 ; Bipolar 2 disorder F31.81 ; PTSD ( post-traumatic stress disorder) F43.10 ; History of hepatitis Z86.19 ; History of high cholesterol Z86.39 ; History of anxiety Z86.59 ; History of seizures Z87.898 ; History of DE (myocardial infarction) I25.2 and History of COPD Z87.09 [facility] [address], [place] [address]- 7519 Oct, Generalized anxiety disorder F41.1 ; Depression F32.9 and PTSD (post-traumatic stress disorder) F43.10 [facility] [address], [place] [address]- 7653 Jan, [facility] [id number] [place] [address] 57728- 9225 Jan, [facility] [id number] [place] [address] 07672- 6779 Jun, [address] [id number] Jun, [facility] [id number] [place] [address] 47160- 7765 May, [facility] [id number] [place] [address] 95442- 2844 May, [address] [id number] May, [facility] [id number] [place] [address] 688244- 1600 May, [address] [id number] May, [facility] [address], [place] [address]- 8905 May, IMMUNIZATIONS No Known Immunizations SOCIAL HISTORY [...]
--- OUTSIDE RECORDS SUMMARY | 2019-01-26 07:35 | XMS REPORT ---
Author Author GERARDO KISER [facility] Address [address] [place] [address] Care Team Providers Care Player Services Representative Name Role Phone MARGI GERARDO Unavailable PROBLEMS Type Condition ICD9-CM Code MGV20-PA Code Onset Dates Condition Status SNOMED Code Problem OAB (overactive bladder) N32.81 Active 260430224 Problem Epilepsy G40.909 Active 66853787 Problem Cervicalgia M54.2 Active 82944599 Problem Other chronic pain G89.29 Active 57089152 Problem Tobacco abuse Z72.0 Active 60808052 Problem Lumbago M54.5 Active 434608937 Problem Hepatitis C B19.20 Active 00017393 Problem COPD (chronic obstructive pulmonary disease) J44.9 Active 60862220 Problem Diabetes E11.9 Active 82109767 Problem Bipolar I disorder with duy F31.10 Active 42304159 Problem Type 2 diabetes mellitus without complications E11.9 Active 425825209 Problem Stress incontinence of urine N39.3 Active 14024101 Problem Bilateral claudication of lower limb I73.9 Active 106047241 Problem Seasonal allergic rhinitis due to other allergic trigger J30.89 Active 188753273 Problem Hyperlipidemia, unspecified hyperlipidemia type E78.5 Active 29484622 Problem Hypertension, unspecified type I10 Active 05534790 Problem Chronic tension-type headache, not intractable G44.229 Active 289248061 Problem 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 mellitus without complication, without long -term current use of insulin E11.9 Active 864191413 Problem Type 2 diabetes mellitus with hyperglycemia E11.65 Active 552645233 Problem Chronic post-traumatic stress disorder (PTSD) F43.12 Active 832083148 Problem History of hypothyroidism Z86.39 Active 857787512 Problem Hypoglycemia E16.2 Active 373955845 Problem El's esophageal ulceration K22.10 Active 341563014 Problem Bipolar affective disorder, currently depressed, mild F31.31 Active 257072616 Problem Irritable bowel syndrome with diarrhea K58.0 Active 807726129 Problem Stress incontinence N39.3 Active 81661897 Problem History of hypertension Z86.79 Active 091803936 Problem Uncontrolled type 2 diabetes mellitus without complication, without long-term current use of insulin E11.65 Active 139079685 Problem Panic disorder with agoraphobia F40.01 Active 04737203 Problem Type 2 diabetes mellitus with hyperglycemia E11.65 Active 998496952 Problem History of seizures Z87.898 Active 419376959 Problem senior care current use of insulin Z79.4 Active 647588621 Problem History of VT (myocardial infarction) I25.2 Active 085017565 Problem Mood disorder F39 Active 09043265 Problem Bipolar 2 disorder F31.81 Active 36889310 Problem Gastritis and duodenitis K29.90 Active 376747605 Problem History of high cholesterol Z86.39 Active 633255458 Problem Bipolar I disorder with mood-congruent psychotic features F31.9 Active 359377623 Problem Hypertension, benign I10 Active 84981461 Problem Primary insomnia F51.01 Active 0109757 ALLERGIES No Information ENCOUNTERS Encounter Location Date Diagnosis [place] [id number] [place] [address] 70286- 5838 May, [facility] [address] 38381- 6855 May, [facility] [id number] [place] [address] 66016- 6170 May, [facility] [id number] [place] [address] 39650- 9400 May, Lumbago M54.5 [facility] [id number] [place] [address] 66083- 5808 May, [facility] [address] 96120- 4362 Apr, Abnormal CT of the chest R93.8 [facility] [id number] [place] [address] 01984- 2226 Apr, Bipolar 2 disorder F31.81 ; Chronic post-traumatic stress disorder (PTSD) F43.12 and Panic disorder with agoraphobia F40.01 [facility] [id number] [place] [address] 04429- [address], [address] of the chest R93.8 [facility] [id number] [place] [address] 79998- [address] Apr, [address] of the chest R93.8 [facility] [address] 96548- 7660 14 Apr, 2018 [facility] [id number] [place] [address] 56698- 6661 Apr, Type 2 diabetes mellitus with hyperglycemia E11.65 [facility] [address] 08892- 6172 Apr, 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 mellitus without complication, without long-term current use of insulin E11.9 ; Watery eyes H04.203 ; Low back pain M54.5 ; Other chronic pain G89.29 ; Chronic tension-type headache, not intractable G44.229 ; Uncontrolled type 2 diabetes mellitus without complication , without long-term current use of insulin E11.65 and Bronchitis J40 [facility] [address] 00491- 3927 Apr, [facility] [id number] [place] [address] 54889- 8447 Apr, Lumbago M54.5 [facility] [id number] [place] [address] 39812- 5995 March, [facility] [id number] [place] [address] 78454 -8582 March, Cough R05 ; Pneumonia due to infectious organism, unspecified laterality, unspecified part of lung J18.9 and Non-intractable vomiting with nausea, unspecified vomiting type R11.2 [facility] [id number] [place] [address] 21922- 8783 March, Bronchitis J40 [facility] [address] 14865- 3562 March, [facility] [id number] [place] [address] 71800- 6541 March, El's esophageal ulceration K22.10 and Type 2 diabetes mellitus with hyperglycemia E11.65 [facility] [address] [address] 5621 March, Panic disorder with agoraphobia F40.01 ; Chronic post- traumatic stress disorder (PTSD) F43.12 and Bipolar 2 disorder F31.81 [facility] [address] [place] [address] 23319- 7750 March, Type 2 diabetes mellitus with hyperglycemia E11.65 [facility] [id number] [place] [address] 13005- 4707 March, [facility] [id number] [place] [address] 45315- 7786 March, Lumbago M54.5 [facility] [address] [place] [address] 48976- 7851 March, [facility] [id number] [place] [address] 42982- 7088 March, Irritable bowel syndrome with diarrhea K58.0 ; Primary insomnia F51.01 ; Type 2 diabetes mellitus with hyperglycemia E11.65 and senior care current use of insulin Z79.4 [facility] [address] [address]- 7725 March, [facility] [address] [address]- 0446 Jan, [facility] [id number] [place] [address] 60165- 2008 Jan, [facility] [address] [address]- 1267 Jan, [facility] [id number] [place] [address] 39050- 1997 Jan, [facility] [id number] [place] [address] 52385- 4387 Jan, Dizziness R42 [facility] [address] 28449- 7933 Jan, Bipolar affective disorder, currently depressed, mild F31.31 ; Panic disorder with agoraphobia F40.01 and Chronic post-traumatic stress disorder (PTSD) F43.12 [facility] [address] 64383- 6444 Jan, Dizziness R42 [facility] [address] 07139- 3254 Jan, Chest pain, unspecified type R07.9 ; Exertional dyspnea R06.09 ; Hypertension, unspecified type I10 and Hyperlipidemia, unspecified hyperlipidemia type E78.[address] 49822- 7233 Jan, [facility] [id number] [place] [address] 49904- 7107 Jan, Lumbago M54.[address] 43031- 7568 Jan, El's esophageal ulceration K22.10 ; Blister (nonthermal ) of oral cavity, initial encounter S00.522A ; Local infection of the skin and subcutaneous tissue, unspecified L08.9 ; Type 2 diabetes mellitus with hyperglycemia E11.65 ; oysterman current use of insulin Z79.4 and Stress incontinence N39.3 [facility] [id number] [place] [address] 20562- 5472 Dec, [facility] [address] 22656- 0774 Dec, [facility] [id number] [place] [address] 81452- 8416 Dec, [facility] [id number] [place] [address] [id number] 16 Dec, 2017 Dental examination Z01.20 [facility] [id number] [place] [address] 45064- 7065 15 Dec, 2017 Acute pain of right knee M25.561 [facility] [id number] [place] [address] 01504- 3710 14 Dec, 2017 [facility] [id number] [place] [address] 90043- 6932 14 Dec, 2017 [facility] [address] [place] [address] 59631- 1690 14 Dec, 2017 Lumbago M54.5 ; Acute pain of right knee M25.561 and Seasonal allergic rhinitis due to other allergic trigger J30.89 [facility] [id number] [place] [address] 90639- 8496 12 Dec, 2017 Type 2 diabetes mellitus with hyperglycemia E11.65 [facility] [id number] [place] [address] 21312- 5196 08 Dec, 2017 [facility] [id number] [place] [address] 35450- 8798 08 Dec, 2017 [facility] [id number] [place] [address] 56685- 0854 23 Dec, 2017 [place] [address] [place] [address] 61300- 1182 15 Dec, 2017 [place] [id number] [place] [address] 46622- 0616 15 Dec, 2017 Chronic post-traumatic stress disorder (PTSD) F43.12 and Panic disorder with agoraphobia F40.01 [facility] [id number] [place] [address] 84413- 3158 13 Dec, 2017 Low back pain M54.5 [facility] [address] [place] [address] 98005- 5770 12 Dec, 2017 Type 2 diabetes mellitus with hyperglycemia E11.65 ; senior care current use of insulin Z79.4 ; Low back pain M54.5 ; Other chronic pain G89.29 and Encounter for therapeutic drug level monitoring Z51.81 [facility] [id number] [place] [address] 78779- 7315 09 Dec, 2017 Coughing R05 [facility] [id number] [place] [address] 52841- 4881 Dec, [facility] [address] [id number] Dec, Dental examination Z01.20 [place] [facility] [address] 76382- 5895 Nov, Type 2 diabetes mellitus without complications E11.9 and Encounter for therapeutic drug level monitoring Z51.81 [facility] [id number] [place] [address] 28656- 0242 Nov, [facility] [address] 08441- 9662 Oct, Type 2 diabetes mellitus without complications E11.9 [facility] [address] 55869- 7051 Oct, Type 2 diabetes mellitus with hyperglycemia E11.65 [facility] [id number] [place] [address] 77061- 2588 Aug, Type 2 diabetes mellitus without complications E11.9 [facility] [id number] [place] [address] 45856- 4482 Aug, Type 2 diabetes mellitus without complications E11.9 ; Hypoglycemia E16.2 ; Lumbago M54.5 ; Stress incontinence of urine N39.3 and History of VT (myocardial infarction) I25.2 [facility] [id number] [place] [address] 07842- 1796 Jun, [facility] [id number] [place] [address] 72103- 1197 May, [facility] [address] [address]- 3842 Apr, Panic disorder with agoraphobia F40.01 [facility] [id number] [place] [address] 11745- 1734 Apr, Panic disorder with agoraphobia F40.01 [facility] [address] [address]- 8387 Apr, [facility] [id number] [place] [address] 87672- 6697 March, Other chronic pain G89.29 [facility] [id number] [place] [address] 31740- 3958 March, [facility] [id number] [place] [address] 97816- 2387 March, [facility] [id number] [place] [address] 42629- 8825 March, [facility] [address] [place] [address] 00842- 0236 March, [facility] [id number] [place] [address] 90268- 2058 March, Type 2 diabetes mellitus without complications E11.9 [facility] [address] [address]- 1056 March, Diarrhea, unspecified type R19.7 [facility] [address] [address]- 5045 March, Bipolar 2 disorder F31.81 ; Chronic post-traumatic stress disorder (PTSD) F43.12 and Type 2 diabetes mellitus with hyperglycemia E11.65 [facility] [address] [address]- 9093 March, [facility] [address] [address]- 1924 March, [facility] [address] [place] [address] 57835- 4384 March, Hypertension, benign I10 ; Type 2 diabetes mellitus with hyperglycemia E11.65 ; Hepatitis C B19.20 ; Gastritis and duodenitis K29.90 and Dysuria R30.0 [facility] [id number] [place] [address] 24927- 7728 March, Hypertension, benign I10 ; Type 2 diabetes mellitus with hyperglycemia E11.65 ; Hepatitis C B19.20 ; Gastritis and duodenitis K29.90 and Dysuria R30.0 [facility] [address] [place] [address] 40033- 1877 March, Panic disorder with agoraphobia F40.01 ; Chronic post- traumatic stress disorder (PTSD) F43.12 ; Epilepsy G40.909 and Bipolar I disorder with mood-congruent psychotic features F31.9 [facility] [id number] [place] [address] 13166- 6910 March, [facility] [id number] [place] [address] 10203- 4166 March, Type 2 diabetes mellitus with hyperglycemia E11.65 [facility] [id number] [place] [address] 44469- 9786 18 Jan, 2017 Bipolar I disorder with duy F31.10 [facility] [address] [place] [address] 64017- 5167 Jan, Bipolar 2 disorder F31.81 ; Chronic post-traumatic stress disorder (PTSD) F43.12 and Type 2 diabetes mellitus with hyperglycemia E11.65 [facility] [id number] [place] [address] 23535- 4387 Jan, [facility] [id number] [place] [address] 33787- 6442 Jan, [facility] [id number] [place] [address] 36637- 8621 Jan, Panic disorder with agoraphobia F40.01 [facility] [address] [place] [address]- 8475 13 Jan, 2017 Panic disorder with agoraphobia F40.01 ; Bipolar I disorder with mood-congruent psychotic features F31.9 ; Chronic post-traumatic stress disorder (PTSD) F43.12 and Epilepsy G40.909 [facility] [address] [address]- 1999 12 Jan, 2017 [facility] [id number] [place] [address] 07914- 2834 Jan, [facility] [id number] [place] [address] 49875- 7488 10 Jan, 2017 Type 2 diabetes mellitus without complications E11.9 and Hypoglycemia E16.2 [facility] [address] [place] [address] 78338- 8479 07 Jan, 2017 Type 2 diabetes mellitus without complications E11.9 ; Primary insomnia F51.01 and Hypertension, benign I10 [facility] [address] [place] [address] 61969- 4704 06 Jan, 2017 [facility] [id number] [place] [address] [id number] 05 Jan, 2017 [facility] [address] [place] [address] 98879- 1591 31 Dec, 2016 Type 2 diabetes mellitus with hyperglycemia E11.65 [facility] [address] [place] [address] 55757- 2452 27 Dec, 2016 [facility] [address] [place] [address] 63137- 0728 21 Dec, 2016 Bipolar 2 disorder F31.81 ; Panic disorder with agoraphobia F40.01 ; Chronic post-traumatic stress disorder (PTSD) F43.12 and Epilepsy G40.909 [facility] [address] [place] [address] 06379- 4834 20 Dec, 2016 [facility] [id number] [place] [address] 40192- 8896 Dec, [facility] [address] [place] [address] 78569- 8120 Dec, Bipolar 2 disorder F31.81 ; Panic disorder with agoraphobia F40.01 ; Chronic post-traumatic stress disorder (PTSD) F43.12 and Epilepsy G40.909 [facility] [address] [place] [address] 15037- 4864 Dec, [facility] [address] 73421- 0182 Dec, [facility] [id number] [place] [address] 09983- 5230 Dec, [facility] [address] 36399- 1048 Dec, Type 2 diabetes mellitus with hyperglycemia E11.65 ; senior care current use of insulin Z79.4 and Lumbago M54.5 [facility] [address] 08976- 0489 Dec, [facility] [id number] [place] [address] 95596- 6273 Dec, [facility] [id number] [place] [address] 77846- 9844 Dec, [facility] [address] [place] [address] 82650 -1623 Dec, Pain of left leg M79.605 and Pain in right leg M79.604 [facility] [address] [place] [address] 08627- 7882 Dec, [facility] [address] [place] [address] 44689- 5726 Dec, Type 2 diabetes mellitus with hyperglycemia E11.65 [facility] [id number] [place] [address] 02286- 3672 Dec, [facility] [address] [place] [address]- 1756 Dec, Type 2 diabetes mellitus with hyperglycemia E11.65 ; oysterman current use of insulin Z79.4 ; Vagina, candidiasis B37.3 and Other chronic pain G89.29 [facility] [address] [place] [address] 36582- 1519 Nov, Panic disorder with agoraphobia F40.01 [facility] [address] 80326- 2782 Nov, [facility] [address] 52948- 2309 Nov, [facility] [address] 72022- 4702 Nov, Hypoglycemia E16.2 [facility] [facility] [address] 56855- 3680 Nov, [facility] [address] 90192- 5727 Nov, [facility] [id number] [place] [address] 41124- 5142 Nov, [facility] [id number] [place] [address] 88345- 3958 Nov, Type 2 diabetes mellitus with hyperglycemia E11.65 and oysterman current use of insulin Z79.4 [facility] [address] [place] [address] 31440- 6900 Nov, Panic disorder with agoraphobia F40.01 ; Bipolar 2 disorder F31.81 ; Chronic post-traumatic stress disorder (PTSD) F43.12 and Epilepsy G40.909 [facility] [id number] [place] [address] 70738- 1931 Nov, Panic disorder with agoraphobia F40.01 [facility] [id number] [place] [address] 18539- 3952 Oct, [facility] [address] [address]- 3643 Oct, [facility] [id number] [place] [address] 24950- 9275 Oct, Bipolar 2 disorder F31.81 ; Panic disorder with agoraphobia F40.01 and Mood disorder F39 [facility] [address] [place] [address] 79638- 7116 Oct, Diabetes E11.9 ; Type 2 diabetes mellitus with hyperglycemia E11.65 and senior care current use of insulin Z79.4 [facility] [address] [place] [address] 36196- 0170 Oct, [facility] [id number] [place] [address] 65100- 1372 Sep, [facility] [id number] [place] [address] 33406- 7254 Sep, Bipolar 2 disorder F31.81 and Mood disorder F39 [facility] [address] [address]- 6627 Sep, [facility] [id number] [place] [address] 56106- 9323 Sep, Uncontrolled type 2 diabetes mellitus without complication, without long-term current use of insulin E11.65 [facility] [address] [address]- 2087 Sep, [facility] [address] [address]- 7990 Sep, [facility] [address] [address]- 6571 Sep, [facility] [address] [address]- 5476 Sep, [facility] [address] [address]- 1755 Sep, Bipolar 2 disorder F31.81 ; Chronic post-traumatic stress disorder (PTSD) F43.12 ; Panic disorder with agoraphobia F40.01 and Epilepsy G40.909 [facility] [address] 12046- 8709 Sep, Bipolar 2 disorder F31.81 ; PTSD (post-traumatic stress disorder) F43.10 and Panic disorder with agoraphobia F40.01 [facility] [address] 76235- 1288 Sep, [facility] [address] 71686- 2715 Aug, History of seizures Z87.898 ; Panic disorder with agoraphobia F40.01 and Bipolar 2 disorder F31.81 [facility] [address] 11819- 9981 Aug, [facility] [address] 10513- 5678 Aug, [facility] [address] 66035- 1106 Aug, [facility] [address] 10993- 3599 Aug, [facility] [id number] [place] [address] 72376- 6628 Aug, [facility] [address] 21388- 6596 Aug, [facility] [address] 47942- 1564 Aug, Hypoglycemia E16.2 and Bilateral impacted cerumen H61.23 [facility] [address] 20268- 8160 Aug, [facility] [address] 07958- 9344 Jul, [facility] [address] [address]- 7332 Jul, [facility] [id number] [place] [address] 09555- 5697 Jul, Bipolar 2 disorder F31.81 ; Panic disorder with agoraphobia F40.01 ; PTSD (post-traumatic stress disorder) F43.10 and Epilepsy G40.909 [facility] [id number] [place] [address] 81125- 0184 Jul, [facility] [id number] [place] [address] 08486- 3393 Jul, Type 2 diabetes mellitus without complications E11.9 and Coughing R05 [facility] [id number] [place] [address] [phone]- [phone] Jul, [facility] [id number] [place] [address] [phone]- [phone] Jun, [facility] [id number] [place] [address] 58161- 6804 Jun, Bipolar 2 disorder F31.81 ; PTSD (post-traumatic stress disorder) F43.10 and Panic disorder with agoraphobia F40.01 [facility] [id number] [place] [address] [phone]- [phone] Jun, [facility] [id number] [place] [address] [phone]- [phone] Jun, [facility] [id number] [place] [address] [phone]- [phone] Jun, [facility] [facility] [id number] [place] [address] 51000- 3575 Jun, Type 2 diabetes mellitus without complications E11.9 and COPD (chronic obstructive pulmonary disease) J44.9 [facility] [address] [id number] May, Dental examination Z01.20 and Dental caries K02.9 [facility] [id number] [address] May, Bipolar 2 disorder F31.81 ; PTSD (post-traumatic stress disorder) F43.10 and Panic disorder with agoraphobia F40.01 [place] [address] [place] [address] 02316- 2566 May, Lumbago with sciatica, right side M54.41 ; Other chronic pain G89.29 and Uncontrolled type 2 diabetes mellitus without complication, without long-term current use of insulin E11.65 [facility] [id number] [place] [address] 76335- 3836 May, Chronic bronchitis, unspecified chronic bronchitis type J42 [facility] [id number] [place] [address] 36927- 3440 May, [id number] [place] [address] 87647- 3131 May, [facility] [id number] [place] [address] 27539- 4879 May, Chest pain, unspecified type R07.9 ; Tobacco use Z72.0 ; Type 2 diabetes mellitus without complications E11.9 ; Essential hypertension I10 ; Hyperlipidemia, unspecified hyperlipidemia type E78.5 ; Obesity (BMI 30- 39.9) E66.9 ; History of hypothyroidism Z86.39 ; Chronic obstructive pulmonary disease, unspecified COPD type J44.9 ; Anxiety F41.9 ; Bilateral claudication of lower limb I73.9 and Bipolar 2 disorder F31.81 [facility] [place] [address] [place] [address] 95078- 2286 May, Bipolar 2 disorder F31.81 ; Panic disorder with agoraphobia F40.01 and Tobacco abuse Z72.0 [facility] [address] [place] [address] 28842- 2314 Apr, [facility] [id number] [place] [address] 58060- 9464 Apr, [facility] [id number] [place] [address] 78670- 8600 Apr, [facility] [address] 05331- 6182 Apr, Bipolar 2 disorder F31.81 ; Panic disorder with agoraphobia F40.01 and PTSD (post-traumatic stress disorder) F43.10 [facility] [facility] [address] 44756- 5882 Apr, Chronic bronchitis, unspecified chronic bronchitis type J42 ; Cervical neuritis M54.12 and Thoracic neuritis M54.14 [facility] [id number] [place] [address] 79644- 5247 Apr, [facility] [address] 00044- 2451 Apr, Cervicalgia M54.2 [facility] [facility] [address] 03701- 6914 Apr, Bipolar 2 disorder F31.81 ; Panic disorder with agoraphobia F40.01 and PTSD (post-traumatic stress disorder) F43.10 [facility] [id number] [place] [address] 94170 -6048 Apr, [facility] [id number] [place] [address] 90483 -4450 Apr, Cough R05 and Tobacco dependence F17.200 [facility] [id number] [place] [address] 00372- 1765 Apr, [facility] [id number] [place] [address] 99013- 2384 Apr, [facility] [address] 81361- 0535 March, Bipolar 2 disorder F31.81 ; Panic disorder with agoraphobia F40.01 and Generalized anxiety disorder F41.1 [place] [address] 13377- 8785 March, Closed displaced fracture of fifth metatarsal bone of right foot with routine healing, subsequent encounter S92.351D [facility] [id number] [place] [address] 67837- 8821 March, Bronchitis J40 [facility] [facility] [id number] [place] [address] 42875- 2228 March, [facility] [id number] [place] [address] 81288- 6107 March, [facility] [id number] [place] [address] 49312- 7208 March, Foot pain, right M79.671 ; Cervicalgia M54.2 and 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 mellitus without complication, unspecified oysterman insulin use status E11.9 [facility] [id number] [place] [address] 81602- 4154 March, Fracture of fifth metatarsal bone of right foot S92.351A [facility] [id number] [place] [address] 94044- 8094 March, [facility] [id number] [place] [address] 29408- 0718 Jan, Fracture of fifth metatarsal bone of right foot S92.351A [facility] [address] [address] Jan, Bipolar 2 disorder F31.81 ; PTSD (post-traumatic stress disorder) F43.10 ; Panic disorder with agoraphobia F40.01 and Epilepsy G40.909 [facility] [facility] [address] [address] Jan, History of VT (myocardial infarction) I25.2 and History of high cholesterol Z86.39 [facility] [address] [place] [address] 17811- 8504 Jan, Bipolar 2 disorder F31.81 ; Panic disorder with agoraphobia F40.01 ; Tobacco abuse Z72.0 and PTSD (post-traumatic stress disorder) F43.10 [facility] [id number] [place] [address] 08995- 6208 Jan, Fracture of fifth metatarsal bone of right foot S92.351A [facility] [id number] [place] [address] 44460- 4914 Jan, [facility] [address] 64307- 9013 Jan, History of high cholesterol Z86.39 [facility] [address] 63205- 8969 Jan, History of VT (myocardial infarction) I25.2 [facility] [id number] [place] [address] 73775- 2467 Jan, [facility] [address] 96567- 6190 Dec, Back pain M54.9 ; Diabetes E11.9 ; Right knee pain M25.561 and Chest pain R07.9 [facility] [id number] [place] [address] 88646- 6336 Dec, [facility] [id number] [place] [address] 67358- 5648 24 Jan, 2016 [facility] [id number] [place] [address] 52727- 7801 Dec, Cervicalgia M54.2 [facility] [id number] [place] [address] 78729- 9180 17 Jan, 2016 Bipolar 2 disorder F31.81 ; PTSD (post-traumatic stress disorder) F43.10 ; Panic disorder with agoraphobia F40.01 and Epilepsy G40.909 [facility] [id number] [place] [address] 89271- 3401 08 Jan, 2016 Bipolar 2 disorder F31.81 ; PTSD (post-traumatic stress disorder) F43.10 and Panic disorder with agoraphobia F40.01 [facility] [id number] [place] [address] 61665- 2860 Dec, Diabetes E11.9 [facility] [id number] [place] [address] 42359- 2422 Dec, [facility] [id number] [place] [address] 71964- 5020 Dec, Other chronic pain G89.29 ; Hepatitis C B19.20 and History of seizures Z87.898 [facility] [id number] [place] [address] 53157- 0233 Dec, [facility] [id number] [place] [address] 61414- 6073 Dec, Bipolar 2 disorder F31.81 and Other chronic pain G89.29 [facility] [id number] [place] [address] 35229- 2714 Dec, Cervicalgia M54.2 and Diabetes E11.9 [facility] [id number] [place] [address] 79934- 6960 Dec, [facility] [id number] [place] [address] 26802- 3699 Dec, [facility] [id number] [place] [address] 31289- 0814 Dec, [facility] [id number] [place] [address] 84136- 4917 Dec, [facility] [id number] [place] [address] 22631- 0469 Dec, Type 2 diabetes mellitus without complications E11.9 [facility] [id number] [place] [address] 31732- 3766 Dec, [facility] [address] [place] [address] 15329- 3072 Dec, History of seizures Z87.898 and Hepatitis C B19.20 [place] [address] [place] [address] 20726- 9132 Dec, Hepatitis C B19.20 [place] [facility] [id number] [place] [address] 52554- 4096 Dec, [facility] [id number] [place] [address] 23305- 5758 Dec, Cervicalgia M54.2 ; COPD (chronic obstructive pulmonary disease) J44.9 and Hepatitis C B19.20 [facility] [facility] [id number] [place] [address] 29223- 0961 Dec, Bipolar 2 disorder F31.81 ; History of hypertension Z86.79 ; History of anxiety Z86.59 ; Panic disorder with agoraphobia F40.01 and Epilepsy G40.909 [id number] [place] [address] 09901- 8950 Nov, [facility] [id number] [place] [address] 72541- 7678 Nov, [id number] [place] [address] 63409- 2341 Nov, History of seizures Z87.898 ; OAB (overactive bladder) N32.81 ; Lumbago M54.5 ; Other chronic pain G89.29 ; Cervicalgia M54.2 ; Tobacco abuse Z72.0 ; Tobacco abuse counseling Z71.6 and Impaired fasting glucose R73.01 [place] [id number] [place] [address] 52120- 8046 Nov, Bipolar 2 disorder F31.81 ; PTSD (post-traumatic stress disorder) F43.10 ; History of anxiety Z86.59 ; History of COPD Z87.09 ; Panic disorder with agoraphobia F40.01 and Moderate depressed bipolar I disorder F31.32 [id number] [place] [address] 36681- 7948 12 Rolando, 2016 PTSD (post-traumatic stress disorder) F43.10 [facility] [address] [id number] 11 Nov, 2015 Dental examination Z01.20 and Dental caries K02.9 [facility] [id number] [place] [address] 39103- 5996 08 Nov, 2015 History of hypertension Z86.79 ; History of hypothyroidism Z86.39 ; History of high cholesterol Z86.39 ; History of COPD Z87.09 and Overactive bladder N32.81 [facility] [id number] [place] [address] 92254- 5881 Nov, Bipolar 2 disorder F31.81 and PTSD (post-traumatic stress disorder) F43.10 [facility] [id number] [place] [address] 24401- 8004 Nov, PTSD (post-traumatic stress disorder) F43.10 ; Panic disorder with agoraphobia F40.01 ; Epilepsy G40.909 and Moderate depressed bipolar I disorder F31.32 [place] [id number] [place] [address] 74274- 6112 Nov, [facility] [id number] [place] [address] 59732- 8741 Nov, [facility] [id number] [place] [address] 64261- 9678 Oct, [facility] [id number] [place] [address] 80105- 0417 Oct, Generalized anxiety disorder F41.1 ; Major depression, recurrent F33.9 and PTSD (post-traumatic stress disorder) F43.10 [facility] [id number] [place] [address] 30457- 8031 Oct, Elevated fasting glucose R73.01 [place] [facility] [id number] [place] [address] 33415- 6978 Oct, Elevated fasting glucose R73.01 [facility] [id number] [place] [address] 48342- 6239 17 Oct, 2015 History of COPD Z87.09 [place] [address] [place] [address] 83743- 2002 15 Oct, 2015 General medical exam Z00.00 ; History of hypertension Z86.79 ; History of hypothyroidism Z86.39 ; History of hepatitis Z86.19 ; History of high cholesterol Z86.39 and History of seizures Z87.898 [facility] [id number] [place] [address] 34693- 5321 10 Oct, 2015 General medical exam Z00.00 ; History of hypertension Z86.79 ; History of hypothyroidism Z86.39 ; Bipolar 2 disorder F31.81 ; PTSD ( post-traumatic stress disorder) F43.10 ; History of hepatitis Z86.19 ; History of high cholesterol Z86.39 ; History of anxiety Z86.59 ; History of seizures Z87.898 ; History of VT (myocardial infarction) I25.2 and History of COPD Z87.09 [place] [address] [place] [address] 79800- 6525 Oct, Generalized anxiety disorder F41.1 ; Depression F32.9 and PTSD (post-traumatic stress disorder) F43.10 [place] [address] [place] [address] 66661- 5107 Jan, [place] [address] [address]- 6178 Jan, [place] [address] [place] [address] 97998- 1686 Jun, [facility] [address] [place] [id number] Jun, [place] [id number] [place] [address] 65888- 7871 May, [place] [address] [address]- 1576 May, [facility] [address] [place] [id number] May, [place] [address] [facility] [id number] [place] [address] 9443 May, [facility] [address] [place] [id number] May, [facility] [address] [facility] [id number] [place] [address]- 0736 May, IMMUNIZATIONS No Known Immunizations SOCIAL HISTORY [...]
--- OUTSIDE RECORDS SUMMARY | 2019-01-26 07:37 | XMS REPORT ---
Author Author GERARDO KISER [facility] Address [address] [place] [address] Care Team Providers Care Patient Care Coordinator Name Role Phone MARGI GERARDO Unavailable PROBLEMS Type Condition ICD9-CM Code MAW99-BD Code Onset Dates Condition Status SNOMED Code Problem OAB (overactive bladder) N32.81 Active 281815964 Problem Epilepsy G40.909 Active 08128004 Problem Cervicalgia M54.2 Active 81083925 Problem Other chronic pain G89.29 Active 17460613 Problem Tobacco abuse Z72.0 Active 11732844 Problem Lumbago M54.5 Active 619306897 Problem Hepatitis C B19.20 Active 15698167 Problem COPD (chronic obstructive pulmonary disease) J44.9 Active 33935078 Problem Diabetes E11.9 Active 95315595 Problem Bipolar I disorder with duy F31.10 Active 29691302 Problem Type 2 diabetes mellitus without complications E11.9 Active 580837868 Problem Stress incontinence of urine N39.3 Active 31744504 Problem Bilateral claudication of lower limb I73.9 Active 157913984 Problem Seasonal allergic rhinitis due to other allergic trigger J30.89 Active 047874167 Problem Hyperlipidemia, unspecified hyperlipidemia type E78.5 Active 56352963 Problem Hypertension, unspecified type I10 Active 43413659 Problem Chronic tension-type headache, not intractable G44.229 Active 451030415 Problem 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 mellitus without complication, without long -term current use of insulin E11.9 Active 829811515 Problem Type 2 diabetes mellitus with hyperglycemia E11.65 Active 569009885 Problem Chronic post-traumatic stress disorder (PTSD) F43.12 Active 235927090 Problem History of hypothyroidism Z86.39 Active 161881879 Problem Hypoglycemia E16.2 Active 189056262 Problem El's esophageal ulceration K22.10 Active 218973892 Problem Bipolar affective disorder, currently depressed, mild F31.31 Active 570556104 Problem Irritable bowel syndrome with diarrhea K58.0 Active 222555049 Problem Stress incontinence N39.3 Active 94745440 Problem History of hypertension Z86.79 Active 611844133 Problem Uncontrolled type 2 diabetes mellitus without complication, without long-term current use of insulin E11.65 Active 035898811 Problem Panic disorder with agoraphobia F40.01 Active 36135686 Problem Type 2 diabetes mellitus with hyperglycemia E11.65 Active 163959245 Problem History of seizures Z87.898 Active 831231976 Problem 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 current use of insulin Z79.4 Active 030854656 Problem History of AR (myocardial infarction) I25.2 Active 568060597 Problem Mood disorder F39 Active 62457157 Problem Bipolar 2 disorder F31.81 Active 27632918 Problem Gastritis and duodenitis K29.90 Active 472203168 Problem History of high cholesterol Z86.39 Active 150494328 Problem Bipolar I disorder with mood-congruent psychotic features F31.9 Active 895439160 Problem Hypertension, benign I10 Active 64941458 Problem Primary insomnia F51.01 Active 4314257 ALLERGIES No Information ENCOUNTERS Encounter Location Date Diagnosis [place] [id number] [place] [address] 84956- 6806 May, [facility] [address] 51552- 8101 May, [facility] [id number] [place] [address] 95700- 1159 May, [facility] [id number] [place] [address] 58118- 9703 May, Lumbago M54.5 [facility] [id number] [place] [address] 46496- 3912 May, [facility] [address] 28063- 0034 Apr, Abnormal CT of the chest R93.8 [facility] [id number] [place] [address] 27814- 7646 Apr, Bipolar 2 disorder F31.81 ; Chronic post-traumatic stress disorder (PTSD) F43.12 and Panic disorder with agoraphobia F40.01 [facility] [id number] [place] [address] 30405- [address] Apr, [address] of the chest R93.8 [facility] [id number] [place] [address] 50552- [address] Apr, [address] of the chest R93.8 [facility] [address] 49772- 5126 14 Apr, 2018 [facility] [id number] [place] [address] 17741- 2873 Apr, Type 2 diabetes mellitus with hyperglycemia E11.65 [facility] [address] 15805- 9038 Apr, 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 mellitus without complication, without long-term current use of insulin E11.9 ; Watery eyes H04.203 ; Low back pain M54.5 ; Other chronic pain G89.29 ; Chronic tension-type headache, not intractable G44.229 ; Uncontrolled type 2 diabetes mellitus without complication , without long-term current use of insulin E11.65 and Bronchitis J40 [facility] [address] 45496- 0425 Apr, [facility] [id number] [place] [address] 59431- 5452 Apr, Lumbago M54.5 [facility] [id number] [place] [address] 67114- 1446 March, [facility] [id number] [place] [address] 92666 -0136 March, Cough R05 ; Pneumonia due to infectious organism, unspecified laterality, unspecified part of lung J18.9 and Non-intractable vomiting with nausea, unspecified vomiting type R11.2 [facility] [id number] [place] [address] 89643- 7861 March, Bronchitis J40 [facility] [address] 12926- 2781 March, [facility] [id number] [place] [address] 68904- 4062 March, El's esophageal ulceration K22.10 and Type 2 diabetes mellitus with hyperglycemia E11.65 [facility] [address], [place] [address]- 3241 March, Panic disorder with agoraphobia F40.01 ; Chronic post- traumatic stress disorder (PTSD) F43.12 and Bipolar 2 disorder F31.81 [facility] [address] [place] [address] 10538- 5974 March, Type 2 diabetes mellitus with hyperglycemia E11.65 [facility] [id number] [place] [address] 02515- 3592 March, [facility] [id number] [place] [address] 11115- 9177 March, Lumbago M54.5 [facility] [address] [place] [address] 19566- 2239 March, [facility] [id number] [place] [address] 55281- 9356 March, Irritable bowel syndrome with diarrhea K58.0 ; Primary insomnia F51.01 ; Type 2 diabetes mellitus with hyperglycemia E11.65 and 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 current use of insulin Z79.4 [facility] [address] [place] [address]- 2313 March, [facility] [address] [place] [address]- 2147 Jan, [facility] [id number] [place] [address] 48517- 2987 Jan, [facility] [address] [place] [address]- 4424 Jan, [facility] [id number] [place] [address] 44765- 3521 Jan, [facility] [id number] [place] [address] 19818- 3114 Jan, Dizziness R42 [facility] [address] 49371- 4666 Jan, Bipolar affective disorder, currently depressed, mild F31.31 ; Panic disorder with agoraphobia F40.01 and Chronic post-traumatic stress disorder (PTSD) F43.12 [facility] [address] 32994- 7866 Jan, Dizziness R42 [facility] [address] 96284- 3886 Jan, Chest pain, unspecified type R07.9 ; Exertional dyspnea R06.09 ; Hypertension, unspecified type I10 and Hyperlipidemia, unspecified hyperlipidemia type E78.[address] 66311- 1425 Jan, [facility] [id number] [place] [address] 16178- 2210 Jan, Lumbago M54.[address] 07416- 5172 Jan, El's esophageal ulceration K22.10 ; Blister (nonthermal ) of oral cavity, initial encounter S00.522A ; Local infection of the skin and subcutaneous tissue, unspecified L08.9 ; Type 2 diabetes mellitus with hyperglycemia E11.65 ; pasteurizer current use of insulin Z79.4 and Stress incontinence N39.3 [facility] [id number] [place] [address] 85776- 5595 Dec, [facility] [address] 54894- 4953 Dec, [facility] [id number] [place] [address] 21242- 6002 Dec, [facility] [id number] [place] [address] [id number] 16 Dec, 2017 Dental examination Z01.20 [facility] [id number] [place] [address] 88165- 8497 15 Dec, 2017 Acute pain of right knee M25.561 [facility] [id number] [place] [address] 67753- 4359 14 Dec, 2017 [facility] [id number] [place] [address] 38449- 7706 14 Dec, 2017 [facility] [id number] [place] [address] 45949- 7323 14 Dec, 2017 Lumbago M54.5 ; Acute pain of right knee M25.561 and Seasonal allergic rhinitis due to other allergic trigger J30.89 [facility] [id number] [place] [address] 50345- 5480 12 Dec, 2017 Type 2 diabetes mellitus with hyperglycemia E11.65 [facility] [id number] [place] [address] 87594- 7000 08 Dec, 2017 [facility] [place] [id number] [place] [address] 26066- 3077 08 Dec, 2017 [facility] [place] [id number] [place] [address] 72762- 4909 23 Dec, 2017 [place] [address] [place] [address] 69175- 7494 15 Dec, 2017 [place] [place] [id number] [place] [address] 22609- 2340 15 Dec, 2017 Chronic post-traumatic stress disorder (PTSD) F43.12 and Panic disorder with agoraphobia F40.01 [facility] [id number] [place] [address] 93770- 6322 13 Dec, 2017 Low back pain M54.5 [facility] [address] [place] [address] 90166- 6691 12 Dec, 2017 Type 2 diabetes mellitus with hyperglycemia E11.65 ; 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 current use of insulin Z79.4 ; Low back pain M54.5 ; Encounter for therapeutic drug level monitoring Z51.81 and Other chronic pain G89.29 [facility] [id number] [place] [address] 04511- 3116 Dec, Coughing R05 [facility] [id number] [place] [address] 05672- 8045 Dec, [facility] [address] [id number] Dec, Dental examination Z01.20 [facility] [place] [address] 87321- 4026 Nov, Type 2 diabetes mellitus without complications E11.9 and Encounter for therapeutic drug level monitoring Z51.81 [facility] [id number] [place] [address] 66175- 7663 Nov, [facility] [address] 52098- 4264 Oct, Type 2 diabetes mellitus without complications E11.9 [facility] [address] 73194- 9480 Oct, Type 2 diabetes mellitus with hyperglycemia E11.65 [facility] [id number] [place] [address] 99487- 2703 Aug, Type 2 diabetes mellitus without complications E11.9 [facility] [id number] [place] [address] 36518- 3518 Aug, Type 2 diabetes mellitus without complications E11.9 ; Hypoglycemia E16.2 ; Lumbago M54.5 ; Stress incontinence of urine N39.3 and History of AR (myocardial infarction) I25.2 [facility] [place] [id number] [place] [address] 87344- 6928 Jun, [facility] [id number] [place] [address] 77563- 1489 May, [facility] [place] [address] [address]- 8517 Apr, Panic disorder with agoraphobia F40.01 [facility] [id number] [place] [address] 07687- 8199 Apr, Panic disorder with agoraphobia F40.01 [facility] [address], [place] [address]- 4210 Apr, [facility] [id number] [place] [address] 81540- 2295 March, Other chronic pain G89.29 [facility] [id number] [place] [address] 40703- 2305 March, [facility] [id number] [place] [address] 02837- 4775 March, [facility] [id number] [place] [address] 44381- 6844 March, [facility] [id number] [place] [address] 32310- 5577 March, [facility] [id number] [place] [address] 08996- 7585 March, Type 2 diabetes mellitus without complications E11.9 [facility] [address], [place] [address]- 9036 March, Diarrhea, unspecified type R19.7 [facility] [address], [place] [address]- 5588 March, Bipolar 2 disorder F31.81 ; Chronic post-traumatic stress disorder (PTSD) F43.12 and Type 2 diabetes mellitus with hyperglycemia E11.65 [facility] [address], [place] [address]- 9873 March, [facility] [address], [place] [address]- 3295 March, [facility] [address] [place] [address] 93239- 1051 March, Hypertension, benign I10 ; Type 2 diabetes mellitus with hyperglycemia E11.65 ; Hepatitis C B19.20 ; Gastritis and duodenitis K29.90 and Dysuria R30.0 [facility] [id number] [place] [address] 90590- 7605 March, Hypertension, benign I10 ; Type 2 diabetes mellitus with hyperglycemia E11.65 ; Hepatitis C B19.20 ; Gastritis and duodenitis K29.90 and Dysuria R30.0 [facility] [address] [place] [address] 16875- 9703 March, Panic disorder with agoraphobia F40.01 ; Chronic post- traumatic stress disorder (PTSD) F43.12 ; Epilepsy G40.909 and Bipolar I disorder with mood-congruent psychotic features F31.9 [facility] [id number] [place] [address] 79794- 0596 March, [facility] [id number] [place] [address] 58482- 3369 March, Type 2 diabetes mellitus with hyperglycemia E11.65 [facility] [id number] [place] [address] 42470- 4786 18 Jan, 2017 Bipolar I disorder with duy F31.10 [facility] [id number] [place] [address] 83128- 5477 Jan, Bipolar 2 disorder F31.81 ; Chronic post-traumatic stress disorder (PTSD) F43.12 and Type 2 diabetes mellitus with hyperglycemia E11.65 [facility] [id number] [place] [address] 25548- 9774 Jan, [facility] [id number] [place] [address] 53043- 1509 Jan, [facility] [id number] [place] [address] 92508- 4188 Jan, Panic disorder with agoraphobia F40.01 [facility] [address] [place] [address]- 8025 13 Jan, 2017 Panic disorder with agoraphobia F40.01 ; Bipolar I disorder with mood-congruent psychotic features F31.9 ; Chronic post-traumatic stress disorder (PTSD) F43.12 and Epilepsy G40.909 [facility] [address], [place] [address]- 8014 12 Jan, 2017 [facility] [id number] [place] [address] 59706- 0502 Jan, [facility] [id number] [place] [address] 25584- 8218 10 Jan, 2017 Type 2 diabetes mellitus without complications E11.9 and Hypoglycemia E16.2 [facility] [id number] [place] [address] 54953- 9822 07 Jan, 2017 Type 2 diabetes mellitus without complications E11.9 ; Primary insomnia F51.01 and Hypertension, benign I10 [facility] [id number] [place] [address] 76186- 0721 06 Jan, 2017 [facility] [id number] [place] [address] [id number] 05 Jan, 2017 [facility] [id number] [place] [address] 93440- 6846 31 Dec, 2016 Type 2 diabetes mellitus with hyperglycemia E11.65 [facility] [address] [place] [address] 33080- 7537 27 Dec, 2016 [facility] [id number] [place] [address] 91677- 6091 21 Dec, 2016 Bipolar 2 disorder F31.81 ; Panic disorder with agoraphobia F40.01 ; Chronic post-traumatic stress disorder (PTSD) F43.12 and Epilepsy G40.909 [facility] [address] [place] [address] 65902- 2306 20 Dec, 2016 [facility] [id number] [place] [address] 31804- 0654 Dec, [facility] [id number] [place] [address] 88144- 5817 Dec, Bipolar 2 disorder F31.81 ; Panic disorder with agoraphobia F40.01 ; Chronic post-traumatic stress disorder (PTSD) F43.12 and Epilepsy G40.909 [facility] [id number] [place] [address] 08277- 3589 Dec, [facility] [address] 32324- 0307 Dec, [facility] [id number] [place] [address] 81245- 3133 Dec, [facility] [address] 24625- 6423 Dec, Type 2 diabetes mellitus with hyperglycemia E11.65 ; 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 current use of insulin Z79.4 and Lumbago M54.5 [facility] [address] 46527- 2895 Dec, [facility] [id number] [place] [address] 18675- 8133 Dec, [facility] [id number] [place] [address] 29948- 1117 Dec, [facility] [id number] [place] [address] 39564 -5245 Dec, Pain of left leg M79.605 and Pain in right leg M79.604 [facility] [id number] [place] [address] 25803- 2214 Dec, [facility] [id number] [place] [address] 99161- 7145 Dec, Type 2 diabetes mellitus with hyperglycemia E11.65 [facility] [id number] [place] [address] 72180- 7366 Dec, [facility] [address] [place] [address]- 9900 Dec, Type 2 diabetes mellitus with hyperglycemia E11.65 ; pasteurizer current use of insulin Z79.4 ; Vagina, candidiasis B37.3 and Other chronic pain G89.29 [facility] [id number] [place] [address] 28846- 4449 Nov, Panic disorder with agoraphobia F40.01 [facility] [address] 09152- 4390 Nov, [facility] [address] 93485- 8915 Nov, [facility] [address] 36856- 5225 Nov, Hypoglycemia E16.2 [facility] [address] 69784- 5102 Nov, [facility] [address] 02229- 5163 Nov, [facility] [id number] [place] [address] 31805- 6660 Nov, [facility] [id number] [place] [address] 50416- 0543 Nov, Type 2 diabetes mellitus with hyperglycemia E11.65 and pasteurizer current use of insulin Z79.4 [facility] [id number] [place] [address] 25306- 0993 Nov, Panic disorder with agoraphobia F40.01 ; Bipolar 2 disorder F31.81 ; Chronic post-traumatic stress disorder (PTSD) F43.12 and Epilepsy G40.909 [facility] [id number] [place] [address] 31532- 4646 Nov, Panic disorder with agoraphobia F40.01 [facility] [id number] [place] [address] 35409- 8180 Oct, [facility] [address], [place] [address]- 5765 Oct, [facility] [id number] [place] [address] 11840- 8630 Oct, Bipolar 2 disorder F31.81 ; Panic disorder with agoraphobia F40.01 and Mood disorder F39 [facility] [address] [place] [address] 36191- 9516 Oct, Diabetes E11.9 ; Type 2 diabetes mellitus with hyperglycemia E11.65 and 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 current use of insulin Z79.4 [facility] [address] [place] [address] 88995- 4816 Oct, [facility] [id number] [place] [address] 66222- 9240 Sep, [facility] [id number] [place] [address] 03946- 7842 Sep, Bipolar 2 disorder F31.81 and Mood disorder F39 [facility] [address], [place] [address]- 1662 Sep, [facility] [id number] [place] [address] 79369- 2216 Sep, Uncontrolled type 2 diabetes mellitus without complication, without long-term current use of insulin E11.65 [facility] [address], [place] [address]- 6229 Sep, [facility] [address], [place] [address]- 5398 Sep, [facility] [address] [place] [address]- 1208 Sep, [facility] [address] [place] [address]- 4650 Sep, [facility] [address] [place] [address]- 1128 Sep, Bipolar 2 disorder F31.81 ; Chronic post-traumatic stress disorder (PTSD) F43.12 ; Panic disorder with agoraphobia F40.01 and Epilepsy G40.909 [facility] [address] 55097- 6275 Sep, Bipolar 2 disorder F31.81 ; PTSD (post-traumatic stress disorder) F43.10 and Panic disorder with agoraphobia F40.01 [facility] [address] 39748- 6803 Sep, [facility] [address] 41782- 6637 Aug, History of seizures Z87.898 ; Panic disorder with agoraphobia F40.01 and Bipolar 2 disorder F31.81 [facility] [address] 96094- 2980 Aug, [facility] [address] 45528- 8130 Aug, [facility] [address] 28505- 0304 Aug, [facility] [address] 68305- 5447 Aug, [facility] [id number] [place] [address] 30858- 4102 Aug, [facility] [address] 17074- 2142 Aug, [facility] [address] 95053- 8345 Aug, Hypoglycemia E16.2 and Bilateral impacted cerumen H61.23 [facility] [address] 33204- 2079 Aug, [facility] [address] 39593- 6504 Jul, [facility] [address] [address]- 8266 Jul, [facility] [id number] [place] [address] 81825- 0918 Jul, Bipolar 2 disorder F31.81 ; Panic disorder with agoraphobia F40.01 ; PTSD (post-traumatic stress disorder) F43.10 and Epilepsy G40.909 [facility] [id number] [place] [address] [id number]- [id number] Jul, [facility] [id number] [place] [address] [phone] Jul, Type 2 diabetes mellitus without complications E11.9 and Coughing R05 [facility] [id number] [place] [address] [id number] [id number] Jul, [facility] [id number] [place] [address] [id number] Jun, [facility] [id number] [place] [address] [phone] Jun, Bipolar 2 disorder F31.81 ; PTSD (post-traumatic stress disorder) F43.10 and Panic disorder with agoraphobia F40.01 [facility] [id number] [place] [address] [phone] Jun, [facility] [id number] [place] [address] [id number]- [phone] Jun, [facility] [id number] [place] [address] [phone] Jun, [facility] [id number] [place] [address] [phone]- [phone] Jun, Type 2 diabetes mellitus without complications E11.9 and COPD (chronic obstructive pulmonary disease) J44.9 [facility] [address] [id number] May, Dental examination Z01.20 and Dental caries K02.9 [facility] [id number] [address] May, Bipolar 2 disorder F31.81 ; PTSD (post-traumatic stress disorder) F43.10 and Panic disorder with agoraphobia F40.01 [place] [id number] [place] [address] 29529- 1232 May, Lumbago with sciatica, right side M54.41 ; Other chronic pain G89.29 and Uncontrolled type 2 diabetes mellitus without complication, without long-term current use of insulin E11.65 [facility] [id number] [place] [address] 81796- 5679 May, Chronic bronchitis, unspecified chronic bronchitis type J42 [facility] [facility] [id number] [place] [address] 29939- 4376 May, [place] [id number] [place] [address] 95382- 1324 May, [facility] [id number] [place] [address] 28224- 4771 May, Chest pain, unspecified type R07.9 ; [...] and Bipolar 2 disorder F31.81 [facility] [id number] [place] [address] 27941- 9895 May, Bipolar 2 disorder F31.81 ; Panic disorder with agoraphobia F40.01 and Tobacco abuse Z72.0 [facility] [id number] [place] [address] 29855- 9978 Apr, [facility] [facility] [id number] [place] [address] 55710- 0235 Apr, [facility] [facility] [id number] [place] [address] 39752- 3425 Apr, [facility] [address] [address]30- 6494 Apr, Bipolar 2 disorder F31.81 ; Panic disorder with agoraphobia F40.01 and PTSD (post-traumatic stress disorder) F43.10 [facility] [address] 25408- 8160 Apr, Chronic bronchitis, unspecified chronic bronchitis type J42 ; Cervical neuritis M54.12 and Thoracic neuritis M54.14 [facility] [id number] [place] [address] 72274- 7034 Apr, [facility] [address] 83043- 9028 Apr, Cervicalgia M54.2 [facility] [address] 34080- 9440 Apr, Bipolar 2 disorder F31.81 ; Panic disorder with agoraphobia F40.01 and PTSD (post-traumatic stress disorder) F43.10 [facility] [id number] [place] [address] 66574 -5832 Apr, [facility] [id number] [place] [address] 21782 -1725 Apr, Cough R05 and Tobacco dependence F17.200 [facility] [id number] [place] [address] 27497- 5242 Apr, [facility] [id number] [place] [address] 84252- 9008 Apr, [facility] [address] 41739- 6717 March, Bipolar 2 disorder F31.81 ; Panic disorder with agoraphobia F40.01 and Generalized anxiety disorder F41.1 [facility] [address] 64805- 7838 March, Closed displaced fracture of fifth metatarsal bone of right foot with routine healing, subsequent encounter S92.351D [facility] [id number] [place] [address] 81929- 0747 March, Bronchitis J40 [facility] [id number] [place] [address] 61806- 4751 March, [facility] [id number] [place] [address] 84467- 2280 March, [facility] [facility] [id number] [place] [address] 82637- 1435 March, Foot pain, right M79.671 ; Cervicalgia M54.2 and 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 mellitus without complication, unspecified workers compensation specialist insulin use status E11.9 [facility] [facility] [id number] [place] [address] 34990- 6256 March, Fracture of fifth metatarsal bone of right foot S92.351A [facility] [id number] [place] [address] 27736- 9499 March, [facility] [facility] [id number] [place] [address] 39922- 7903 Jan, Fracture of fifth metatarsal bone of right foot S92.351A [place] [address], [place] [address] 8681 Jan, Bipolar 2 disorder F31.81 ; PTSD (post-traumatic stress disorder) F43.10 ; Panic disorder with agoraphobia F40.01 and Epilepsy G40.909 [facility] [address], [place] [address] Jan, History of AR (myocardial infarction) I25.2 and History of high cholesterol Z86.39 [facility] [address] [place] [address] 35936- 5532 Jan, Bipolar 2 disorder F31.81 ; Panic disorder with agoraphobia F40.01 ; Tobacco abuse Z72.0 and PTSD (post-traumatic stress disorder) F43.10 [facility] [id number] [place] [address] 71820- 5593 Jan, Fracture of fifth metatarsal bone of right foot S92.351A [facility] [id number] [place] [address] 11299- 3654 Jan, [facility] [address] 37030- 2992 Jan, History of high cholesterol Z86.39 [facility] [address] 81248- 5223 Jan, History of AR (myocardial infarction) I25.2 [facility] [id number] [place] [address] 12114- 2402 Jan, [facility] [address] 57839- 5753 Dec, Back pain M54.9 ; Diabetes E11.9 ; Right knee pain M25.561 and Chest pain R07.9 [facility] [id number] [place] [address] 91620- 2398 Dec, [facility] [id number] [place] [address] 50402- 4608 24 Jan, 2016 [place] [id number] [place] [address] 16773- 7359 Dec, Cervicalgia M54.2 [facility] [id number] [place] [address] 93269- 1809 17 Jan, 2016 Bipolar 2 disorder F31.81 ; PTSD (post-traumatic stress disorder) F43.10 ; Panic disorder with agoraphobia F40.01 and Epilepsy G40.909 [place] [id number] [place] [address] 67395- 2022 08 Jan, 2016 Bipolar 2 disorder F31.81 ; PTSD (post-traumatic stress disorder) F43.10 and Panic disorder with agoraphobia F40.01 [facility] [id number] [place] [address] 99782- 0987 Dec, Diabetes E11.9 [facility] [id number] [place] [address] 87103- 4659 Dec, [facility] [id number] [place] [address] 78419- 2580 Dec, Other chronic pain G89.29 ; Hepatitis C B19.20 and History of seizures Z87.898 [facility] [id number] [place] [address] 96322- 2120 Dec, [facility] [id number] [place] [address] 69303- 0113 Dec, Bipolar 2 disorder F31.81 and Other chronic pain G89.29 [facility] [id number] [place] [address] 98525- 4456 Dec, Cervicalgia M54.2 and Diabetes E11.9 [facility] [id number] [place] [address] 32893- 7957 Dec, [facility] [id number] [place] [address] 69240- 0706 Dec, [facility] [id number] [place] [address] 84062- 4439 Dec, [facility] [id number] [place] [address] 29515- 5208 Dec, [facility] [id number] [place] [address] 81512- 1030 Dec, Type 2 diabetes mellitus without complications E11.9 [facility] [id number] [place] [address] 63908- 8537 Dec, [facility] [address] [place] [address] 52709- 3112 Dec, History of seizures Z87.898 and Hepatitis C B19.20 [place] [address] [place] [address] 10899- 0729 Dec, Hepatitis C B19.20 [place] [id number] [place] [address] 87333- 5476 Dec, [place] [id number] [place] [address] 02546- 8442 Dec, Cervicalgia M54.2 ; COPD (chronic obstructive pulmonary disease) J44.9 and Hepatitis C B19.20 [place] [id number] [place] [address] 89540- 8225 Dec, Bipolar 2 disorder F31.81 ; History of hypertension Z86.79 ; History of anxiety Z86.59 ; Panic disorder with agoraphobia F40.01 and Epilepsy G40.909 [place] [id number] [place] [address] 30903- 7060 Nov, [place] [id number] [place] [address] 72726- 4589 Nov, [place] [id number] [place] [address] 72252- 9413 Nov, History of seizures Z87.898 ; OAB (overactive bladder) N32.81 ; Lumbago M54.5 ; Other chronic pain G89.29 ; Cervicalgia M54.2 ; Tobacco abuse Z72.0 ; Tobacco abuse counseling Z71.6 and Impaired fasting glucose R73.01 [place] [id number] [place] [address] 05561- 0329 Nov, Bipolar 2 disorder F31.81 ; PTSD (post-traumatic stress disorder) F43.10 ; History of anxiety Z86.59 ; History of COPD Z87.09 ; Panic disorder with agoraphobia F40.01 and Moderate depressed bipolar I disorder F31.32 [place] [id number] [place] [address] 84045- 5177 12 Rolando, 2016 PTSD (post-traumatic stress disorder) F43.10 [facility] [address] [id number] 11 Nov, 2015 Dental examination Z01.20 and Dental caries K02.9 [facility] [id number] [place] [address] 43301- 0639 08 Nov, 2015 History of hypertension Z86.79 ; History of hypothyroidism Z86.39 ; History of high cholesterol Z86.39 ; History of COPD Z87.09 and Overactive bladder N32.81 [facility] [id number] [place] [address] 85014- 5064 Nov, Bipolar 2 disorder F31.81 and PTSD (post-traumatic stress disorder) F43.10 [facility] [id number] [place] [address] 40725- 1665 Nov, PTSD (post-traumatic stress disorder) F43.10 ; Panic disorder with agoraphobia F40.01 ; Epilepsy G40.909 and Moderate depressed bipolar I disorder F31.32 [place] [id number] [place] [address] 27699- 2081 Nov, [place] [id number] [place] [address] 55526- 0102 Nov, [facility] [id number] [place] [address] 38499- 6812 Oct, [facility] [id number] [place] [address] 20094- 1868 Oct, Generalized anxiety disorder F41.1 ; Major depression, recurrent F33.9 and PTSD (post-traumatic stress disorder) F43.10 [place] [id number] [place] [address] 57875- 8433 Oct, Elevated fasting glucose R73.01 [place] [id number] [place] [address] 45859- 9768 Oct, Elevated fasting glucose R73.01 [facility] [place] [id number] [place] [address] 70442- 4130 17 Oct, 2015 History of COPD Z87.09 [place] [address] [place] [address] 67656- 5428 15 Oct, 2015 General medical exam Z00.00 ; History of hypertension Z86.79 ; History of hypothyroidism Z86.39 ; History of hepatitis Z86.19 ; History of high cholesterol Z86.39 and History of seizures Z87.898 [facility] [id number] [place] [address] 27520- 5241 10 Oct, 2015 General medical exam Z00.00 ; History of hypertension Z86.79 ; History of hypothyroidism Z86.39 ; Bipolar 2 disorder F31.81 ; PTSD ( post-traumatic stress disorder) F43.10 ; History of hepatitis Z86.19 ; History of high cholesterol Z86.39 ; History of anxiety Z86.59 ; History of seizures Z87.898 ; History of AR (myocardial infarction) I25.2 and History of COPD Z87.09 [place] [address] [place] [address] 96684- 2811 Oct, Generalized anxiety disorder F41.1 ; Depression F32.9 and PTSD (post-traumatic stress disorder) F43.10 [place] [address] [place] [address] 36993- 5705 Jan, [place] [address], [place] [address]- 3083 Jan, [place] [id number] [place] [address] 99129- 8274 Jun, [facility] [address] [place] [id number] Jun, [place] [id number] [place] [address] 24915- 1009 May, [place] [address], [place] [address]- 3663 May, [facility] [address] [place] [id number] May, [place] [address] [facility] [id number] [place] [address]- 7922 May, [facility] [address] [place] [id number] May, [facility] [address] [facility] [id number] [place] [address]- 2034 May, IMMUNIZATIONS No Known Immunizations SOCIAL HISTORY Never Assessed REASON FOR VISIT DI results PLAN OF CARE VITAL SIGNS MEDICATIONS Unknown Medications RESULTS No Results PROCEDURES No Known procedures INSTRUCTIONS MEDICATIONS ADMINISTERED No Known Medications MEDICAL (GENERAL) HISTORY Type Description Date Medical History Hypothyroidism Medical History High cholesterol Medical History Hypertension Medical History Brain seizure Medical History Asthma Medical History COPD Medical History Hep C -2005 Medical History AR x 2 last in 2009 Medical History PTSD (post-traumatic stress disorder) Medical History Colon Cancer 2016 Medical History diabites II Surgical History tonsillectomy 1985 Surgical History partial hysterectomy 2004 Surgical History appendectomy 2004 Hospitalization History Surgery(s) only Hospitalization History pneumonia x3 days Hospitalization History Heart cath with stint 05/15/2016 Hospitalization History Diverticulitis, N/V-[facility] 01/28/17
--- OUTSIDE RECORDS SUMMARY | 2019-01-26 07:38 | XMS REPORT ---
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 Name Role Phone MARGI GERARDO Unavailable PROBLEMS Type Condition ICD9-CM Code [id number] Code Onset Dates Condition Status SNOMED Code Problem OAB (overactive bladder) N32.81 Active 980544898 Problem Epilepsy G40.909 Active 69249956 Problem Cervicalgia M54.2 Active 26988894 Problem Other chronic pain G89.29 Active 38642531 Problem Tobacco abuse Z72.0 Active 73236170 Problem Lumbago M54.5 Active 001242180 Problem Hepatitis C B19.20 Active 24025426 Problem COPD (chronic obstructive pulmonary disease) J44.9 Active 47779374 Problem Diabetes E11.9 Active 16732131 Problem Bipolar I disorder with duy F31.10 Active 71734246 Problem Type 2 diabetes mellitus without complications E11.9 Active 877769111 Problem Stress incontinence of urine N39.3 Active 83760580 Problem Bilateral claudication of lower limb I73.9 Active 136709097 Problem Seasonal allergic rhinitis due to other allergic trigger J30.89 Active 230139275 Problem Hyperlipidemia, unspecified hyperlipidemia type E78.5 Active 32071506 Problem Hypertension, unspecified type I10 Active 11476836 Problem Chronic tension-type headache, not intractable G44.229 Active 953749529 Problem 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 mellitus without complication, without long -term current use of insulin E11.9 Active 463876818 Problem Type 2 diabetes mellitus with hyperglycemia E11.65 Active 863256904 Problem Chronic post-traumatic stress disorder (PTSD) F43.12 Active 084719186 Problem History of hypothyroidism Z86.39 Active 468054626 Problem Hypoglycemia E16.2 Active 689499820 Problem El's esophageal ulceration K22.10 Active 984060567 Problem Bipolar affective disorder, currently depressed, mild F31.31 Active 444654225 Problem Irritable bowel syndrome with diarrhea K58.0 Active 668490581 Problem Stress incontinence N39.3 Active 43475489 Problem History of hypertension Z86.79 Active 590307068 Problem Uncontrolled type 2 diabetes mellitus without complication, without long-term current use of insulin E11.65 Active 558206459 Problem Panic disorder with agoraphobia F40.01 Active 79648193 Problem Type 2 diabetes mellitus with hyperglycemia E11.65 Active 063921396 Problem History of seizures Z87.898 Active 198472863 Problem FCI current use of insulin Z79.4 Active 164865713 Problem History of OH (myocardial infarction) I25.2 Active 200551767 Problem Mood disorder F39 Active 09589399 Problem Bipolar 2 disorder F31.81 Active 36052505 Problem Gastritis and duodenitis K29.90 Active 209458102 Problem History of high cholesterol Z86.39 Active 431484627 Problem Bipolar I disorder with mood-congruent psychotic features F31.9 Active 793411250 Problem Hypertension, benign I10 Active 98225284 Problem Primary insomnia F51.01 Active 2342090 ALLERGIES No Information ENCOUNTERS Encounter Location Date Diagnosis [place] [address] [address] 27 Apr, 2018 [place] [address] 38465- 5273 Apr, [place] [address] 58409- 7186 Apr, Type 2 diabetes mellitus with hyperglycemia E11.65 [place] [address] 42988- 0612 11 Apr, 2018 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 mellitus without complication, without long-term current use of insulin E11.9 ; Watery eyes H04.203 ; Low back pain M54.5 ; Other chronic pain G89.29 ; Chronic tension-type headache, not intractable G44.229 ; Uncontrolled type 2 diabetes mellitus without complication , without long-term current use of insulin E11.65 and Bronchitis J40 [place] [address] [place] [id number] [place] [address] 31944- 2138 06 Apr, 2018 [place] [address] 82565- 9776 Apr, Lumbago M54.5 [facility] [id number] [place] [address] 13748- 9715 March, [facility] [id number] [place] [address] 88058 -8306 March, Cough R05 ; Pneumonia due to infectious organism, unspecified laterality, unspecified part of lung J18.9 and Non-intractable vomiting with nausea, unspecified vomiting type R11.2 [facility] [id number] [place] [address] 20326- 9516 March, Bronchitis J40 [place] [address] [place] [id number] [place] [address] 72250- 6557 March, [place] [address] [place] [id number] [place] [address] 10799- 9420 March, El's esophageal ulceration K22.10 and Type 2 diabetes mellitus with hyperglycemia E11.65 [facility] [id number] [place] [address] 67786- 0549 March, Panic disorder with agoraphobia F40.01 ; Chronic post- traumatic stress disorder (PTSD) F43.12 and Bipolar 2 disorder F31.81 [facility] [id number] [place] [address] 35816- 9871 March, Type 2 diabetes mellitus with hyperglycemia E11.65 [facility] [id number] [place] [address] 06902- 7955 March, [facility] [id number] [place] [address] 02488- 5083 March, Lumbago M54.5 [facility] [id number] [place] [address] 31877- 8253 March, [facility] [id number] [place] [address] 20016- 9329 March, Irritable bowel syndrome with diarrhea K58.0 ; Primary insomnia F51.01 ; Type 2 diabetes mellitus with hyperglycemia E11.65 and 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 [place] [address] [place] [id number] [place] [address] 18260- 2299 March, [facility] [address] [place] [id number] [place] [address] 71134- 4127 Jan, [facility] [address] [place] [id number] [place] [address] 27587- 6869 Jan, [facility] [address] [place] [id number] [place] [address] 53996- 0290 Jan, [place] [address] 53368- 5755 Jan, [place] [address] [place] [id number] [place] [address] 21747- 7617 Jan, Dizziness R42 [place] [address] [place] [id number] [place] [address] 33264- 6250 Jan, Bipolar affective disorder, currently depressed, mild F31.31 ; Panic disorder with agoraphobia F40.01 and Chronic post-traumatic stress disorder (PTSD) F43.12 [place] [address] [place] [id number] [place] [address] 47221- 1425 Jan, Dizziness R42 [place] [address] [place] [id number] [place] [address] 48112- 6620 Jan, Chest pain, unspecified type R07.9 ; Exertional dyspnea R06.09 ; Hypertension, unspecified type I10 and Hyperlipidemia, unspecified hyperlipidemia type E78.5 [place] [address] [place] [id number] [place] [address] 17189- 5493 Jan, [place] [address] [place] [id number] [place] [address] 27979- 5651 Jan, Lumbago M54.5 [place] [address] [place] [id number] [place] [address] 93368- 8212 Jan, El's esophageal ulceration K22.10 ; Blister (nonthermal ) of oral cavity, initial encounter S00.522A ; Local infection of the skin and subcutaneous tissue, unspecified L08.9 ; Type 2 diabetes mellitus with hyperglycemia E11.65 ; 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 [address] [place] [id number] [place] [address] [phone] 16 Dec, 2017 Dental examination Z01.20 [place] [address] [place] [id number] [place] [address] 73972- 1150 15 Dec, 2017 Acute pain of right knee M25.561 [place] [address] [place] [id number] [place] [address] 05708- 9120 14 Dec, 2017 [place] [address] [place] [id number] [place] [address] 49188- 6086 14 Dec, 2017 [place] [address] [place] [id number] [place] [address] 78832- 6467 14 Dec, 2017 Lumbago M54.5 ; Acute pain of right knee M25.561 and Seasonal allergic rhinitis due to other allergic trigger J30.89 [facility] [address] [place] [id number] [place] [address] 66306- 2194 12 Dec, 2017 Type 2 diabetes mellitus with hyperglycemia E11.65 [place] [address] 75885- 2204 Dec, [facility] [address] [place] [id number] [place] [address] 72716- 0953 Dec, [facility] [address] [place] [id number] [place] [address] 15483- 7646 Dec, [facility] [id number] [place] [address] 77025- 2671 Dec, [facility] [address] [place] [id number] [place] [address] 00633- 8482 Dec, Chronic post-traumatic stress disorder (PTSD) F43.12 and Panic disorder with agoraphobia F40.01 [facility] [address] [place] [id number] [place] [address] 35414- 6836 13 Dec, 2017 Low back pain M54.5 [facility] [address] [place] [id number] [place] [address] 07983- 7694 12 Dec, 2017 Type 2 diabetes mellitus with hyperglycemia E11.65 ; FCI current use of insulin Z79.4 ; Low back pain M54.5 ; Other chronic pain G89.29 and Encounter for therapeutic drug level monitoring Z51.81 [facility] [address] [place] [id number] [place] [address] 30591- 1632 09 Dec, 2017 Coughing R05 [facility] [address] [place] [id number] [place] [address] 32460- 3698 09 Dec, 2017 [facility] [address] [place] [id number] [place] [address] [id number] 07 Dec, 2017 Dental examination Z01.20 [facility] [address] [place] [id number] [place] [address] 53986- 9205 Nov, Type 2 diabetes mellitus without complications E11.9 and Encounter for therapeutic drug level monitoring Z51.81 [facility] [id number] [place] [address] 02625- 3579 Nov, [facility] [address] [place] [id number] [place] [address] 47847- 6912 Oct, Type 2 diabetes mellitus without complications E11.9 [facility] [id number] [place] [address] 61669- 9983 Oct, Type 2 diabetes mellitus with hyperglycemia E11.65 [facility] [address] [place] [id number] [address]- 1076 Aug, Type 2 diabetes mellitus without complications E11.9 [facility] [address] [place] [id number] [place] [address] 44643- 0731 Aug, Type 2 diabetes mellitus without complications E11.9 ; Hypoglycemia E16.2 ; Lumbago M54.5 ; Stress incontinence of urine N39.3 and History of OH (myocardial infarction) I25.2 [facility] [address] [place] [id number] [place] [address] 57016- 1547 Jun, [facility] [address] [place] [id number] [place] [address] 44859- 1824 May, [facility] [address] [place] [id number] [place] [address] 46208- 5764 Apr, Panic disorder with agoraphobia F40.01 [facility] [address] [place] [id number] [place] [address] 50191- 7703 Apr, Panic disorder with agoraphobia F40.01 [facility] [address] [place] [id number] [address]- 5186 Apr, [facility] [address] [place] [id number] [place] [address] 95191- 2020 March, Other chronic pain G89.29 [facility] [address] [place] [id number] [address]- 0133 March, [facility] [address] [place] [id number] [address]- 0198 March, [facility] [address] [address]- 3704 March, [facility] [address] [place] [id number] [place] [address] 20334- 7418 March, [facility] [address] [address]- 4062 March, Type 2 diabetes mellitus without complications E11.9 [facility] [id number] [place] [address] 38749- 0750 March, Diarrhea, unspecified type R19.7 [place] [address] [place] [id number] [place] [address] 95497- 5332 March, Bipolar 2 disorder F31.81 ; Chronic post-traumatic stress disorder (PTSD) F43.12 and Type 2 diabetes mellitus with hyperglycemia E11.65 [place] [address] [place] [id number] [place] [address] 17819- 9791 March, [place] [address] [place] [id number] [place] [address] 20436- 7999 March, [place] [address] [place] [id number] [place] [address] 68648- 5144 March, Hypertension, benign I10 ; Type 2 diabetes mellitus with hyperglycemia E11.65 ; Hepatitis C B19.20 ; Gastritis and duodenitis K29.90 and Dysuria R30.0 [place] [address] [place] [id number] [place] [address] 67094- 7213 March, Hypertension, benign I10 ; Type 2 diabetes mellitus with hyperglycemia E11.65 ; Hepatitis C B19.20 ; Gastritis and duodenitis K29.90 and Dysuria R30.0 [place] [id number] [place] [address] 30036- 5783 March, Panic disorder with agoraphobia F40.01 ; Chronic post- traumatic stress disorder (PTSD) F43.12 ; Epilepsy G40.909 and Bipolar I disorder with mood-congruent psychotic features F31.9 [place] [id number] [place] [address] 08302- 0863 March, [place] [id number] [place] [address] 78446- 1249 March, Type 2 diabetes mellitus with hyperglycemia E11.65 [place] [address] [place] [id number] [place] [address] 80583- 6862 Jan, Bipolar I disorder with duy F31.[id number] [place] [address] 44670- 2784 17 Jan, 2017 Bipolar 2 disorder F31.81 ; Chronic post-traumatic stress disorder (PTSD) F43.12 and Type 2 diabetes mellitus with hyperglycemia E11.65 [facility] [address] [place] [id number] [place] [address] 33523- 6658 Jan, [facility] [address] [place] [id number] [place] [address] 90893- 5867 Jan, [facility] [address] [place] [id number] [place] [address] 99591- 7107 14 Jan, 2017 Panic disorder with agoraphobia F40.01 [place] [address] [place] [id number] [place] [address] 98870- 1082 13 Jan, 2017 Panic disorder with agoraphobia F40.01 ; Bipolar I disorder with mood-congruent psychotic features F31.9 ; Chronic post-traumatic stress disorder (PTSD) F43.12 and Epilepsy G40.909 [place] [address] [place] [id number] [place] [address] 65811- 5966 Jan, [place] [address] [place] [id number] [place] [address] 75274- 2719 Jan, [place] [address] [place] [id number] [place] [address] 81350- 2179 Jan, Type 2 diabetes mellitus without complications E11.9 and Hypoglycemia E16.2 [place] [id number] [place] [address] 08169- 5248 Jan, Type 2 diabetes mellitus without complications E11.9 ; Primary insomnia F51.01 and Hypertension, benign I10 [place] [address] [place] [id number] [place] [address] 04463- 6561 Jan, [facility] [address] [place] [id number] [place] [address] [id number] Jan, [facility] [address] [place] [id number] [place] [address] 61844- 2510 Dec, Type 2 diabetes mellitus with hyperglycemia E11.65 [facility] [id number] [place] [address] 23350- 0426 Dec, [facility] [address] [place] [id number] [place] [address] 67382- 8550 Dec, Bipolar 2 disorder F31.81 ; Panic disorder with agoraphobia F40.01 ; Chronic post-traumatic stress disorder (PTSD) F43.12 and Epilepsy G40.909 [facility] [address] [place] [id number] [place] [address] 90598- 5512 Dec, [facility] [address] [place] [id number] [place] [address] 42044- 4744 Dec, [facility] [address] [place] [id number] [place] [address] 09437- 9725 Dec, Bipolar 2 disorder F31.81 ; Panic disorder with agoraphobia F40.01 ; Chronic post-traumatic stress disorder (PTSD) F43.12 and Epilepsy G40.909 [facility] [address] [place] [id number] [place] [address] 81581- 9186 Dec, [facility] [address] [place] [id number] [place] [address] 81105- 7776 Dec, [facility] [address] [place] [id number] [place] [address] 38886- 5854 Dec, [facility] [address] [place] [id number] [place] [address] 01131- 8030 Dec, Type 2 diabetes mellitus with hyperglycemia E11.65 ; 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 and Lumbago M54.5 [facility] [address] [place] [id number] [place] [address] 67919- 4810 Dec, [facility] [address] [place] [id number] [place] [address] 03568- 9376 Dec, [facility] [address] [place] [id number] [place] [address] 72465- 6052 Dec, [facility] [id number] [place] [address] 34876 -3576 Dec, Pain of left leg M79.605 and Pain in right leg M79.604 [facility] [address] [place] [id number] [place] [address] 39964- 7680 14 Dec, 2016 [place] [address] 26244- 9449 08 Dec, 2016 Type 2 diabetes mellitus with hyperglycemia E11.65 [place] [address] [place] [id number] [place] [address] 20317- 3016 06 Dec, 2016 [place] [address] 21068- 2383 03 Dec, 2016 Type 2 diabetes mellitus with hyperglycemia E11.65 ; 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 ; Vagina, candidiasis B37.3 and Other chronic pain G89.29 [place] [address] [place] [id number] [place] [address] 82950- 2265 Nov, Panic disorder with agoraphobia F40.[address] 09871- 0212 Nov, [place] [address] [place] [id number] [place] [address] 38884- 2603 Nov, [place] [address] [place] [id number] [place] [address] 65170- 6556 Nov, Hypoglycemia E16.2 [place] [address] [place] [id number] [place] [address] 63974- 1421 Nov, [address] 99418- 1811 Nov, [place] [address] [place] [id number] [place] [address] 28593- 8480 Nov, [place] [address] 92612- 6379 Nov, Type 2 diabetes mellitus with hyperglycemia E11.65 and 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 [place] [id number] [place] [address] 72838- 7634 Nov, Panic disorder with agoraphobia F40.01 ; Bipolar 2 disorder F31.81 ; Chronic post-traumatic stress disorder (PTSD) F43.12 and Epilepsy G40.909 [place] [address] [place] [id number] [place] [address] 40915- 4649 Nov, Panic disorder with agoraphobia F40.01 [place] [address] [place] [id number] [place] [address] 79850- 1204 Oct, [place] [address] [place] [id number] [place] [address] 93000- 5922 Oct, [place] [address] [place] [id number] [place] [address] 13356- 1729 Oct, Bipolar 2 disorder F31.81 ; Panic disorder with agoraphobia F40.01 and Mood disorder F39 [place] [address] [place] [id number] [place] [address] 15583- 7907 Oct, Diabetes E11.9 ; Type 2 diabetes mellitus with hyperglycemia E11.65 and FCI current use of insulin Z79.4 [place] [id number] [place] [address] 82914- 4835 Oct, [place] [address] [place] [id number] [place] [address] 47095- 1465 Sep, [facility] [address] [place] [id number] [place] [address] 75625- 6637 Sep, Bipolar 2 disorder F31.81 and Mood disorder F39 [place] [address] [place] [id number] [place] [address] 31720- 0652 Sep, [place] [id number] [place] [address] 71362- 6345 Sep, Uncontrolled type 2 diabetes mellitus without complication, without long-term current use of insulin E11.65 [facility] [address] [address]- 9405 Sep, [facility] [address] [place] [id number] [place] [address] 46818- 3816 Sep, [facility] [address] [place] [id number] [place] [address] 41216- 1587 Sep, [facility] [address] [place] [id number] [place] [address] 51929- 6973 Sep, [facility] [address] [place] [id number] [place] [address] 13047- 8078 Sep, Bipolar 2 disorder F31.81 ; Chronic post-traumatic stress disorder (PTSD) F43.12 ; Panic disorder with agoraphobia F40.01 and Epilepsy G40.909 [facility] [address] [place] [id number] [place] [address] 14844- 7735 Sep, Bipolar 2 disorder F31.81 ; PTSD (post-traumatic stress disorder) F43.10 and Panic disorder with agoraphobia F40.01 [facility] [id number] [place] [address] 41463- 5326 Sep, [facility] [address] [place] [id number] [address]- 1148 28 Aug, 2016 History of seizures Z87.898 ; Panic disorder with agoraphobia F40.01 and Bipolar 2 disorder F31.81 [facility] [address] [place] [address]- 0416 Aug, [facility] [address] [place] [id number] [place] [address] 98463- 7194 17 Aug, 2016 [facility] [address] [place] [id number] [place] [address] 65954- 2638 Aug, [facility] [address] [place] [address]- 9834 Aug, [facility] [address] [id number] [place] [address] 48656- 8342 Aug, [facility] [address] 25780- 4279 Aug, [facility] [address] 02135- 2175 Aug, Hypoglycemia E16.2 and Bilateral impacted cerumen H61.23 [facility] [address] 12855- 4109 Aug, [facility] [address] 55760- 8489 Jul, [facility] [address] 11796- 3299 Jul, [facility] [address] 28316- 7529 15 Jul, 2016 Bipolar 2 disorder F31.81 ; Panic disorder with agoraphobia F40.01 ; PTSD (post-traumatic stress disorder) F43.10 and Epilepsy G40.909 [place] [address] 56572- 5179 Jul, [facility] [address] [place] [id number] [place] [address] 51388- 8998 Jul, Type 2 diabetes mellitus without complications E11.9 and Coughing R05 [facility] [address] [id number] [place] [address] 40159- 3013 Jul, [facility] [address] [id number] [place] [address] 94641- 1723 Jun, [facility] [address] [place] [id number] [place] [address] 94331- 1591 Jun, Bipolar 2 disorder F31.81 ; PTSD (post-traumatic stress disorder) F43.10 and Panic disorder with agoraphobia F40.01 [facility] [id number] [place] [address] 88365- 1148 Jun, [place] [id number] [place] [address] 45230- 6977 Jun, [place] [id number] [place] [address] 44924- 6586 Jun, [place] [id number] [place] [address] 10820- 2068 Jun, Type 2 diabetes mellitus without complications E11.9 and COPD (chronic obstructive pulmonary disease) J44.9 [facility] [id number] [place] [address] [id number] May, Dental examination Z01.20 and Dental caries K02.9 [place] [id number] [place] [address] 55734- 3178 May, Bipolar 2 disorder F31.81 ; PTSD (post-traumatic stress disorder) F43.10 and Panic disorder with agoraphobia F40.01 [place] [id number] [place] [address] 33482- 5307 May, Lumbago with sciatica, right side M54.41 ; Other chronic pain G89.29 and Uncontrolled type 2 diabetes mellitus without complication, without long-term current use of insulin E11.65 [place] [id number] [place] [address] 95865- 5340 May, Chronic bronchitis, unspecified chronic bronchitis type J42 [place] [id number] [place] [address] 70703- 1141 May, [place] [id number] [place] [address] 86129- 5186 May, [place] [id number] [place] [address] 22517- 6859 May, Chest pain, unspecified type R07.9 ; Tobacco use Z72.0 ; Type 2 diabetes mellitus without complications E11.9 ; Essential hypertension I10 ; Hyperlipidemia, unspecified hyperlipidemia type E78.5 ; Obesity (BMI 30- 39.9) E66.9 ; History of hypothyroidism Z86.39 ; Chronic obstructive pulmonary disease, unspecified COPD type J44.9 ; Anxiety F41.9 ; Bilateral claudication of lower limb I73.9 and Bipolar 2 disorder F31.81 [place] [id number] [place] [address] 94425- 5381 05 May, 2016 Bipolar 2 disorder F31.81 ; Panic disorder with agoraphobia F40.01 and Tobacco abuse Z72.0 [place] [id number] [place] [address] 08894- 1365 Apr, [place] [id number] [place] [address] 43572- 5521 Apr, [place] [id number] [place] [address] 69111- 4562 Apr, [place] [id number] [place] [address] 86401- 6385 Apr, Bipolar 2 disorder F31.81 ; Panic disorder with agoraphobia F40.01 and PTSD (post-traumatic stress disorder) F43.10 [place] [id number] [place] [address] 29715- 6642 Apr, Chronic bronchitis, unspecified chronic bronchitis type J42 ; Cervical neuritis M54.12 and Thoracic neuritis M54.14 [place] [address] [address] 230[address] Apr, [place] [id number] [place] [address] 56855- 6925 Apr, Cervicalgia M54.2 [place] [id number] [place] [address] 44577- 4886 Apr, Bipolar 2 disorder F31.81 ; Panic disorder with agoraphobia F40.01 and PTSD (post-traumatic stress disorder) F43.10 [facility] [address] [address] Apr, [facility] [id number] [address] Apr, Cough R05 and Tobacco dependence F17.200 [facility] [id number] [place] [address] 98653- 4192 Apr, [facility] [id number] [place] [address] 39496- 5258 Apr, [facility] [id number] [place] [address] 72919- 3725 March, Bipolar 2 disorder F31.81 ; Panic disorder with agoraphobia F40.01 and Generalized anxiety disorder F41.1 [place] [id number] [place] [address] 38010- 9156 March, Closed displaced fracture of fifth metatarsal bone of right foot with routine healing, subsequent encounter S92.351D [place] [id number] [place] [address] 89950- 4853 March, Bronchitis J40 [place] [id number] [place] [address] 13524- 4966 March, [place] [id number] [place] [address] 82841- 1715 March, [facility] [id number] [place] [address] 88749- 9740 March, Foot pain, right M79.671 ; Cervicalgia M54.2 and 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 mellitus without complication, unspecified retirement insulin use status E11.9 [place] [id number] [place] [address] 09405- 9075 March, Fracture of fifth metatarsal bone of right foot S92.351A [facility] [id number] [place] [address] 29734- 0653 March, [facility] [id number] [place] [address] 46044- 4566 Jan, Fracture of fifth metatarsal bone of right foot S92.351A [place] [id number] [place] [address] 34151- 4639 Jan, Bipolar 2 disorder F31.81 ; PTSD (post-traumatic stress disorder) F43.10 ; Panic disorder with agoraphobia F40.01 and Epilepsy G40.909 [place] [id number] [place] [address] 64646- 5783 Jan, History of OH (myocardial infarction) I25.2 and History of high cholesterol Z86.39 [place] [id number] [place] [address] 26937- 8884 Jan, Bipolar 2 disorder F31.81 ; Panic disorder with agoraphobia F40.01 ; Tobacco abuse Z72.0 and PTSD (post-traumatic stress disorder) F43.10 [place] [id number] [place] [address] 05661- 0049 Jan, Fracture of fifth metatarsal bone of right foot S92.351A [place] [address] 32326- 9565 Jan, [place] [address] 28621- 4040 Jan, History of high cholesterol Z86.39 [place] [id number] [place] [address] 60680- 3489 Jan, History of [place] (myocardial infarction) I25.2 [place] [address] 63224- 9414 Jan, [place] [id number] [place] [address] 02301- 8545 Dec, Back pain M54.9 ; Diabetes E11.9 ; Right knee pain M25.561 and Chest pain R07.9 [place] [id number] [place] [address] 27244- 0321 Dec, [place] [address] 52784- 2013 Dec, [facility] [id number] [place] [address] 66369- 7658 Dec, Cervicalgia M54.2 [place] [id number] [place] [address] 59152- 2170 Dec, Bipolar 2 disorder F31.81 ; PTSD (post-traumatic stress disorder) F43.10 ; Panic disorder with agoraphobia F40.01 and Epilepsy G40.909 [place] [address] 67409- 5724 Dec, Bipolar 2 disorder F31.81 ; PTSD (post-traumatic stress disorder) F43.10 and Panic disorder with agoraphobia F40.01 [place] [id number] [place] [address] 03751- 4033 Dec, Diabetes E11.9 [place] [address] 11593- 4171 Dec, [place] [address] 09776- 9096 Dec, Other chronic pain G89.29 ; Hepatitis C B19.20 and History of seizures Z87.898 [place] [id number] [place] [address] 55947- 1195 Dec, [place] [id number] [place] [address] 38036- 2153 Dec, Bipolar 2 disorder F31.81 and Other chronic pain G89.29 [place] [id number] [place] [address] 57437- 4164 Dec, Cervicalgia M54.2 and Diabetes E11.9 [place] [id number] [place] [address] 30259- 8786 Dec, [place] [address] 24849- 5571 Dec, [place] [address], [place] [address]- 0260 Dec, [facility] [id number] [place] [address] 97102- 9183 Dec, [facility] [id number] [place] [address] 77756- 8033 Dec, Type 2 diabetes mellitus without complications E11.9 [place] [address] 34332- 8058 10 Dec, 2015 [place] [id number] [place] [address] 31140- 5483 Dec, History of seizures Z87.898 and Hepatitis C B19.20 [place] [id number] [place] [address] 48250- 7960 Dec, Hepatitis C B19.20 [place] [id number] [place] [address] 85468- 8667 Dec, [place] [id number] [place] [address] 67119- 7496 Dec, Cervicalgia M54.2 ; COPD (chronic obstructive pulmonary disease) J44.9 and Hepatitis C B19.20 [place] [id number] [place] [address] 71157- 9332 Dec, Bipolar 2 disorder F31.81 ; History of hypertension Z86.79 ; History of anxiety Z86.59 ; Panic disorder with agoraphobia F40.01 and Epilepsy G40.909 [place] [id number] [place] [address] 96023- 4279 Nov, [place] [id number] [place] [address] 95724- 3903 Nov, [place] [id number] [place] [address] 93335- 5003 Nov, History of seizures Z87.898 ; OAB (overactive bladder) N32.81 ; Lumbago M54.5 ; Other chronic pain G89.29 ; Cervicalgia M54.2 ; Tobacco abuse Z72.0 ; Tobacco abuse counseling Z71.6 and Impaired fasting glucose R73.01 [facility] [id number] [place] [address] 44948- 5852 Nov, Bipolar 2 disorder F31.81 ; PTSD (post-traumatic stress disorder) F43.10 ; History of anxiety Z86.59 ; History of COPD Z87.09 ; Panic disorder with agoraphobia F40.01 and Moderate depressed bipolar I disorder F31.[address] 28672- 7755 12 Nov, 2015 PTSD (post-traumatic stress disorder) F43.10 [facility] [id number] [place] [address] [id number] Nov, Dental examination Z01.20 and Dental caries K02.[address] 22911- 3430 Nov, History of hypertension Z86.79 ; History of hypothyroidism Z86.39 ; History of high cholesterol Z86.39 ; History of COPD Z87.09 and Overactive bladder N32.81 [place] [id number] [place] [address] 00874- 6886 Nov, Bipolar 2 disorder F31.81 and PTSD (post-traumatic stress disorder) F43.10 [facility] [id number] [place] [address] 56165- 2571 Nov, PTSD (post-traumatic stress disorder) F43.10 ; Panic disorder with agoraphobia F40.01 ; Epilepsy G40.909 and Moderate depressed bipolar I disorder F31.32 [facility] [id number] [place] [address] 63724- 1968 Nov, [facility] [id number] [place] [address] 73848- 3519 Nov, [facility] [id number] [place] [address] 15378- 9430 Oct, [address] [id number] [place] [address] 87654- 9336 Oct, Generalized anxiety disorder F41.1 ; Major depression, recurrent F33.9 and PTSD (post-traumatic stress disorder) F43.10 [address] [id number] [place] [address] 43166- 6582 Oct, Elevated fasting glucose R73.[address] 44348- 9014 Oct, Elevated fasting glucose R73.[address] 57426- 8894 Oct, History of COPD Z87.09 [place] [id number] [place] [address] 09074- 6693 Oct, General medical exam Z00.00 ; History of hypertension Z86.79 ; History of hypothyroidism Z86.39 ; History of hepatitis Z86.19 ; History of high cholesterol Z86.39 and History of seizures Z87.898 [address] [id number] [place] [address] 97190- 7670 Oct, General medical exam Z00.00 ; History of hypertension Z86.79 ; History of hypothyroidism Z86.39 ; Bipolar 2 disorder F31.81 ; PTSD ( post-traumatic stress disorder) F43.10 ; History of hepatitis Z86.19 ; History of high cholesterol Z86.39 ; History of anxiety Z86.59 ; History of seizures Z87.898 ; History of [place] (myocardial infarction) I25.2 and History of COPD Z87.09 [address] [id number] [place] [address] 93712- 7120 Oct, Generalized anxiety disorder F41.1 ; Depression F32.9 and PTSD (post-traumatic stress disorder) F43.[address] 80662- 9985 Jan, [facility] [address] [facility] [id number] [address]- 2546 Jan, [facility] [address] [facility] [id number] [address]- 2546 Jun, [facility] [address] [place] [id number] Jun, [facility] [address] [facility] [id number], [place] [address]- 2546 May, [facility] [address] [facility] [id number], [place] [address]- 2546 May, [facility] [address] [id number] May, [facility] [id number] [address]- 2546 May, [place] [address] [place] [id number] May, [facility] [address] [facility] [id number], [place] [address]- 2546 May, IMMUNIZATIONS No Known Immunizations SOCIAL HISTORY Never Assessed REASON FOR VISIT Syringes request PLAN OF CARE VITAL SIGNS MEDICATIONS Medication Instructions Dosage Frequency Start Date End Date Duration Status Insulin Syringe 31G X 5/16" 0.5 ML subcutaneously 4 times a day Inject insulin 4 times daily as prescribed 6h Oct, Active RESULTS No Results PROCEDURES No Known procedures INSTRUCTIONS MEDICATIONS ADMINISTERED No Known Medications MEDICAL (GENERAL) HISTORY Type Description Date Medical History Hypothyroidism Medical History High cholesterol Medical History Hypertension Medical History Brain seizure Medical History Asthma Medical History COPD Medical History Hep C -2005 Medical History OH x 2 last in 2009 Medical History [...]
[2019-01-26] MEDS ORDERED: LACTATED RINGERS 1,000 ML IV ONE (07:39)
--- OUTSIDE RECORDS SUMMARY | 2019-01-26 07:39 | XMS REPORT ---
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 Name Role Phone MARGI GERARDO Unavailable PROBLEMS Type Condition ICD9-CM Code [id number] Code Onset Dates Condition Status SNOMED Code Problem OAB (overactive bladder) N32.81 Active 790856352 Problem Epilepsy G40.909 Active 12653764 Problem Cervicalgia M54.2 Active 01279255 Problem Other chronic pain G89.29 Active 64667812 Problem Tobacco abuse Z72.0 Active 82442987 Problem Lumbago M54.5 Active 226163539 Problem Hepatitis C B19.20 Active 08055649 Problem COPD (chronic obstructive pulmonary disease) J44.9 Active 98678036 Problem Diabetes E11.9 Active 79684334 Problem Bipolar I disorder with duy F31.10 Active 89290144 Problem Type 2 diabetes mellitus without complications E11.9 Active 794116401 Problem Stress incontinence of urine N39.3 Active 27744655 Problem Bilateral claudication of lower limb I73.9 Active 538297841 Problem Seasonal allergic rhinitis due to other allergic trigger J30.89 Active 100969157 Problem Hyperlipidemia, unspecified hyperlipidemia type E78.5 Active 66988583 Problem Hypertension, unspecified type I10 Active 50424219 Problem Chronic tension-type headache, not intractable G44.229 Active 520206174 Problem 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 mellitus without complication, without long -term current use of insulin E11.9 Active 752286277 Problem Type 2 diabetes mellitus with hyperglycemia E11.65 Active 834433113 Problem Chronic post-traumatic stress disorder (PTSD) F43.12 Active 437931270 Problem History of hypothyroidism Z86.39 Active 263692778 Problem Hypoglycemia E16.2 Active 205998493 Problem El's esophageal ulceration K22.10 Active 931457922 Problem Bipolar affective disorder, currently depressed, mild F31.31 Active 815748790 Problem Irritable bowel syndrome with diarrhea K58.0 Active 844561163 Problem Stress incontinence N39.3 Active 74352415 Problem History of hypertension Z86.79 Active 020137274 Problem Uncontrolled type 2 diabetes mellitus without complication, without long-term current use of insulin E11.65 Active 918480578 Problem Panic disorder with agoraphobia F40.01 Active 38236945 Problem Type 2 diabetes mellitus with hyperglycemia E11.65 Active 006867834 Problem History of seizures Z87.898 Active 595584514 Problem FPC current use of insulin Z79.4 Active 105700799 Problem History of RI (myocardial infarction) I25.2 Active 494062184 Problem Mood disorder F39 Active 56991756 Problem Bipolar 2 disorder F31.81 Active 20380813 Problem Gastritis and duodenitis K29.90 Active 706605220 Problem History of high cholesterol Z86.39 Active 889790533 Problem Bipolar I disorder with mood-congruent psychotic features F31.9 Active 330673468 Problem Hypertension, benign I10 Active 61046017 Problem Primary insomnia F51.01 Active 0665331 ALLERGIES No Information ENCOUNTERS Encounter Location Date Diagnosis [place] [address] [address] May, [facility] [address] [address] May, [place] [address] 19284- 9138 May, Lumbago M54.5 [place] [address] [place] [id number] [place] [address] 36589- 3112 May, [facility] [address] [place] [id number] [place] [address] 11328- 8118 Apr, Abnormal CT of the chest R93.8 [facility] [address] 18[address]- 2539 Apr, Bipolar 2 disorder F31.81 ; Chronic post-traumatic stress disorder (PTSD) F43.12 and Panic disorder with agoraphobia F40.01 [facility] [address] 45442- [address] Apr, [address] of the chest R93.8 [facility] [id number] [place] [address] 62993- [address] Apr, [address] of the chest R93.8 [facility] [address] [place] [id number] [place] [address] 33315- 7904 14 Apr, 2018 [place] [address] [place] [id number] [place] [address] 90191- 4304 Apr, Type 2 diabetes mellitus with hyperglycemia E11.65 [place] [address] [place] [id number] [place] [address] 98543- 5261 Apr, 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 mellitus without complication, without long-term current use of insulin E11.9 ; Watery eyes H04.203 ; Low back pain M54.5 ; Other chronic pain G89.29 ; Chronic tension-type headache, not intractable G44.229 ; Uncontrolled type 2 diabetes mellitus without complication , without long-term current use of insulin E11.65 and Bronchitis J40 [place] [address] [place] [id number] [place] [address] 71376- 3365 Apr, [place] [address] [place] [id number] [place] [address] 07571- 6316 Apr, Lumbago M54.5 [place] [address] [place] [id number] [place] [address] 53890- 8220 March, [facility] [address] [place] [id number] [place] [address] 50554 -4723 March, Cough R05 ; Pneumonia due to infectious organism, unspecified laterality, unspecified part of lung J18.9 and Non-intractable vomiting with nausea, unspecified vomiting type R11.2 [place] [address] [place] [id number] [place] [address] 01752- 4423 March, Bronchitis J40 [facility] [address] [place] [id number] [place] [address] 99678- 5277 March, [place] [address] [place] [id number] [place] [address] 69378- 1509 March, El's esophageal ulceration K22.10 and Type 2 diabetes mellitus with hyperglycemia E11.65 [place] [address] [place] [id number] [place] [address] 45054- 5271 March, Panic disorder with agoraphobia F40.01 ; Chronic post- traumatic stress disorder (PTSD) F43.12 and Bipolar 2 disorder F31.81 [place] [address] [place] [id number] [place] [address] 31714- 8520 March, Type 2 diabetes mellitus with hyperglycemia E11.65 [place] [address] [place] [id number] [place] [address] 14135- 3028 March, [place] [address] [place] [id number] [place] [address] 70115- 1550 March, Lumbago M54.5 [place] [address] [place] [id number] [place] [address] 34186- 1794 March, [facility] [address] [place] [id number] [place] [address] 36562- 0070 March, Irritable bowel syndrome with diarrhea K58.0 ; Primary insomnia F51.01 ; Type 2 diabetes mellitus with hyperglycemia E11.65 and FPC current use of insulin Z79.4 [place] [address] [place] [id number] [place] [address] 26931- 0906 March, [place] [address] [place] [id number] [place] [address] 70351- 5774 Jan, [facility] [id number] [place] [address] 82111- 7826 Jan, [facility] [address] [place] [id number] [place] [address] 62242- 5955 Jan, [facility] [address] [place] [id number] [place] [address] 38462- 3809 Jan, [facility] [address] [place] [id number] [place] [address] 01733- 2581 Jan, Dizziness R42 [place] [address] [place] [id number] [place] [address] 14472- 4657 Jan, Bipolar affective disorder, currently depressed, mild F31.31 ; Panic disorder with agoraphobia F40.01 and Chronic post-traumatic stress disorder (PTSD) F43.12 [place] [address] [place] [id number] [place] [address] 61848- 1847 Jan, Dizziness R42 [place] [address] 42634- 7897 Jan, Chest pain, unspecified type R07.9 ; Exertional dyspnea R06.09 ; Hypertension, unspecified type I10 and Hyperlipidemia, unspecified hyperlipidemia type E78.5 [place] [address] [place] [id number] [place] [address] 49245- 8726 Jan, [place] [address] 63840- 7490 Jan, Lumbago M54.5 [place] [address] [place] [id number] [place] [address] 17354- 6401 Jan, El's esophageal ulceration K22.10 ; Blister (nonthermal ) of oral cavity, initial encounter S00.522A ; Local infection of the skin and subcutaneous tissue, unspecified L08.9 ; Type 2 diabetes mellitus with hyperglycemia E11.65 ; meterman current use of insulin Z79.4 and Stress incontinence N39.3 [place] [address] [place] [id number] [place] [address] 87009- 4131 Dec, [place] [address] [place] [id number] [place] [address] 51118- 8184 Dec, [place] [address] [place] [id number] [place] [address] 56431- 4204 Dec, [facility] [address] [place] [address] [id number] Dec, Dental examination Z01.20 [place] [address] [place] [address]- 1665 15 Dec, 2017 Acute pain of right knee M25.561 [facility] [address] [place] [id number] [place] [address] 60839- 8271 14 Dec, 2017 [facility] [address] [place] [id number] [place] [address] 43193- 7662 14 Dec, 2017 [facility] [address] 45460- 7896 14 Dec, 2017 Lumbago M54.5 ; Acute pain of right knee M25.561 and Seasonal allergic rhinitis due to other allergic trigger J30.89 [place] [address] [place] [id number] [place] [address] 78840- 0495 12 Dec, 2017 Type 2 diabetes mellitus with hyperglycemia E11.65 [place] [address] [place] [id number] [place] [address] 65628- 7619 08 Dec, 2017 [facility] [address] [place] [id number] [place] [address] 59756- 6987 08 Dec, 2017 [facility] [address] [place] [id number] [place] [address] 17562- 8735 23 Dec, 2017 [place] [address] [place] [id number] [place] [address] 35526- 7780 15 Dec, 2017 [place] [address] [place] [id number] [place] [address] 35417- 2758 15 Dec, 2017 Chronic post-traumatic stress disorder (PTSD) F43.12 and Panic disorder with agoraphobia F40.01 [place] [id number] [place] [address] 69425- 0813 13 Dec, 2017 Low back pain M54.5 [place] [address] [place] [id number] [place] [address] 15955- 3264 12 Dec, 2017 Type 2 diabetes mellitus with hyperglycemia E11.65 ; meterman current use of insulin Z79.4 ; Low back pain M54.5 ; Encounter for therapeutic drug level monitoring Z51.81 and Other chronic pain G89.29 [facility] [address] [address]- 5834 Dec, Coughing R05 [facility] [address] [place] [id number] [place] [address] 49980- 0399 Dec, [facility] [address] [place] [id number] [place] [address] [id number] Dec, Dental examination Z01.20 [facility] [address] [place] [id number] [place] [address] 97935- 9883 Nov, Type 2 diabetes mellitus without complications E11.9 and Encounter for therapeutic drug level monitoring Z51.81 [place] [address] [place] [id number] [place] [address] 57182- 8024 Nov, [place] [address] [place] [id number] [place] [address] 49392- 3407 Oct, Type 2 diabetes mellitus without complications E11.9 [facility] [address] [place] [id number] [place] [address] 18340- 1679 Oct, Type 2 diabetes mellitus with hyperglycemia E11.65 [place] [address] [place] [id number] [place] [address] 33320- 3990 Aug, Type 2 diabetes mellitus without complications E11.9 [place] [address] [place] [id number] [place] [address] 05899- 8664 Aug, Type 2 diabetes mellitus without complications E11.9 ; Hypoglycemia E16.2 ; Lumbago M54.5 ; Stress incontinence of urine N39.3 and History of RI (myocardial infarction) I25.2 [facility] [id number] [place] [address] 41491- 5731 Jun, [facility] [address] [place] [id number] [place] [address] 11988- 5247 May, [facility] [address] [place] [id number] [place] [address] 78947- 7526 Apr, Panic disorder with agoraphobia F40.01 [facility] [address] [address]- 1609 08 Apr, 2017 Panic disorder with agoraphobia F40.01 [facility] [address] [address]- 1174 Apr, [facility] [address] [place] [id number] [address]- 9534 March, Other chronic pain G89.29 [facility] [address] [place] [id number] [address]- 0440 March, [facility] [address] [place] [id number] [place] [address] 28033- 2720 March, [facility] [address] [place] [id number] [place] [address] 82112- 5618 March, [facility] [address] [place] [id number] [place] [address] 57872- 6479 March, [facility] [address] [address]- 3557 March, Type 2 diabetes mellitus without complications E11.9 [facility] [address] [address]- 5911 March, Diarrhea, unspecified type R19.7 [facility] [address] [address]- 6444 March, Bipolar 2 disorder F31.81 ; Chronic post-traumatic stress disorder (PTSD) F43.12 and Type 2 diabetes mellitus with hyperglycemia E11.65 [facility] [address] [address]- 6150 March, [facility] [id number] [address]- 3377 March, [facility] [address] [address]- 5451 March, Hypertension, benign I10 ; Type 2 diabetes mellitus with hyperglycemia E11.65 ; Hepatitis C B19.20 ; Gastritis and duodenitis K29.90 and Dysuria R30.0 [place] [address] 39660- 7103 March, Hypertension, benign I10 ; Type 2 diabetes mellitus with hyperglycemia E11.65 ; Hepatitis C B19.20 ; Gastritis and duodenitis K29.90 and Dysuria R30.0 [place] [address] 51499- 9261 March, Panic disorder with agoraphobia F40.01 ; Chronic post- traumatic stress disorder (PTSD) F43.12 ; Epilepsy G40.909 and Bipolar I disorder with mood-congruent psychotic features F31.9 [place] [address] 94153- 9598 March, [place] [address] 11560- 0073 March, Type 2 diabetes mellitus with hyperglycemia E11.65 [place] [address] 99115- 2784 18 Jan, 2017 Bipolar I disorder with duy F31.10 [place] [address] 51960- 4625 Jan, Bipolar 2 disorder F31.81 ; Chronic post-traumatic stress disorder (PTSD) F43.12 and Type 2 diabetes mellitus with hyperglycemia E11.65 [place] [address] [place] [id number] [place] [address] 52803- 3998 Jan, [place] [address] [place] [id number] [place] [address] 62935- 2627 Jan, [place] [address] 79092- 4721 14 Jan, 2017 Panic disorder with agoraphobia F40.01 [place] [address] [place] [id number] [place] [address] 67025- 9031 Jan, Panic disorder with agoraphobia F40.01 ; Bipolar I disorder with mood-congruent psychotic features F31.9 ; Chronic post-traumatic stress disorder (PTSD) F43.12 and Epilepsy G40.909 [facility] [address] [place] [id number] [place] [address] 52842- 7191 Jan, [facility] [address] [place] [id number] [place] [address] 63629- 0078 Jan, [facility] [address] 77691- 4880 10 Jan, 2017 Type 2 diabetes mellitus without complications E11.9 and Hypoglycemia E16.2 [place] [address] [place] [id number] [place] [address] 75072- 0708 07 Jan, 2017 Type 2 diabetes mellitus without complications E11.9 ; Primary insomnia F51.01 and Hypertension, benign I10 [facility] [address] [place] [id number] [place] [address] 21785- 0414 Jan, [facility] [address] [place] [id number] Jan, [facility] [address] [place] [id number] [place] [address] 99206- 3716 Dec, Type 2 diabetes mellitus with hyperglycemia E11.65 [facility] [address] [place] [id number] [place] [address] 74610- 0505 Dec, [facility] [address] [place] [id number] [place] [address] 40124- 8198 Dec, Bipolar 2 disorder F31.81 ; Panic disorder with agoraphobia F40.01 ; Chronic post-traumatic stress disorder (PTSD) F43.12 and Epilepsy G40.909 [facility] [address] [place] [id number] [place] [address] 75223- 0712 Dec, [facility] [address] [place] [id number] [place] [address] 23134- 9704 Dec, [facility] [address] [place] [id number] [place] [address] 67295- 5615 Dec, Bipolar 2 disorder F31.81 ; Panic disorder with agoraphobia F40.01 ; Chronic post-traumatic stress disorder (PTSD) F43.12 and Epilepsy G40.909 [facility] [address] [place] [id number] [place] [address] 91932- 8761 Dec, [facility] [address] [place] [id number] [place] [address] 59387- 9408 Dec, [facility] [address] 82620- 4738 Dec, [facility] [address] [place] [id number] [place] [address] 21181- 7905 Dec, Type 2 diabetes mellitus with hyperglycemia E11.65 ; meterman current use of insulin Z79.4 and Lumbago M54.5 [place] [address] [place] [id number] [place] [address] 25405- 5989 Dec, [facility] [address] [place] [id number] [place] [address] 81215- 2594 Dec, [facility] [address] [place] [id number] [place] [address] 48720- 6141 Dec, [facility] [address] [place] [id number] [place] [address] 05050 -6502 Dec, Pain of left leg M79.605 and Pain in right leg M79.604 [facility] [address] [place] [id number] [place] [address] 68154- 5847 Dec, [facility] [address] [place] [id number] [place] [address] 45903- 3631 Dec, Type 2 diabetes mellitus with hyperglycemia E11.65 [place] [address] [place] [id number] [place] [address] 38933- 0128 Dec, [facility] [address] [place] [id number] [place] [address] 35468- 7396 Dec, Type 2 diabetes mellitus with hyperglycemia E11.65 ; meterman current use of insulin Z79.4 ; Vagina, candidiasis B37.3 and Other chronic pain G89.29 [place] [address] 16563- 8718 Nov, Panic disorder with agoraphobia F40.01 [facility] [address] [place] [id number] [place] [address] 81008- 2545 Nov, [facility] [address] 41754- 5446 Nov, [place] [address] 15217- 5311 Nov, Hypoglycemia E16.2 [place] [address] 17125- 1731 Nov, [place] [address] 06722- 9379 Nov, [facility] [address] 11431- 4755 Nov, [facility] [address] [place] [id number] [place] [address] 25093- 8497 Nov, Type 2 diabetes mellitus with hyperglycemia E11.65 and meterman current use of insulin Z79.4 [place] [address] [place] [id number] [place] [address] 80541- 8686 Nov, Panic disorder with agoraphobia F40.01 ; Bipolar 2 disorder F31.81 ; Chronic post-traumatic stress disorder (PTSD) F43.12 and Epilepsy G40.909 [facility] [address] [place] [id number] [place] [address] 79536- 2614 Nov, Panic disorder with agoraphobia F40.01 [place] [address] [place] [id number] [place] [address] 51814- 4097 Oct, [place] [address] [place] [id number] [place] [address] 95880- 3025 Oct, [place] [id number] [address]- 7470 Oct, Bipolar 2 disorder F31.81 ; Panic disorder with agoraphobia F40.01 and Mood disorder F39 [facility] [id number] [place] [address] 36856- 3145 Oct, Diabetes E11.9 ; Type 2 diabetes mellitus with hyperglycemia E11.65 and meterman current use of insulin Z79.4 [facility] [address] [place] [id number] [place] [address] 71633- 1451 Oct, [facility] [address] [place] [id number] [place] [address] 76941- 0157 Sep, [facility] [address] [place] [id number] [place] [address] 54267- 1837 Sep, Bipolar 2 disorder F31.81 and Mood disorder F39 [facility] [address] [place] [id number] [place] [address] 38150- 5496 Sep, [facility] [address] [place] [id number] [place] [address] 49386- 8984 Sep, Uncontrolled type 2 diabetes mellitus without complication, without long-term current use of insulin E11.65 [facility] [id number] [address]- 7327 Sep, [facility] [id number] [address]- 0036 Sep, [facility] [address] [place] [id number] [place] [address] 74696- 4628 Sep, [facility] [address] [place] [id number] [place] [address] 73397- 6122 Sep, [facility] [id number] [place] [address] 84354- 5703 Sep, Bipolar 2 disorder F31.81 ; Chronic post-traumatic stress disorder (PTSD) F43.12 ; Panic disorder with agoraphobia F40.01 and Epilepsy G40.909 [facility] [id number] [place] [address] [id number] Sep, Bipolar 2 disorder F31.81 ; PTSD (post-traumatic stress disorder) F43.10 and Panic disorder with agoraphobia F40.01 [facility] [id number] [place] [address] [phone] Sep, [facility] [address] [phone]- [phone] 28 Aug, 2016 History of seizures Z87.898 ; Panic disorder with agoraphobia F40.01 and Bipolar 2 disorder F31.81 [facility] [id number] [place] [address] [phone] Aug, [facility] [id number] [place] [address] [phone] 17 Aug, 2016 [facility] [address] [phone]- 4074 Aug, [facility] [id number] [place] [address] [phone] Aug, [facility] [id number] [place] [address] 00103- 2489 Aug, [facility] [id number] [place] [address] 28430- 0015 Aug, [facility] [id number] [place] [address] 29143- 4372 Aug, Hypoglycemia E16.2 and Bilateral impacted cerumen H61.23 [facility] [id number] [place] [address] 70085- 2138 Aug, [facility] [id number] [place] [address] 25939- 9292 Jul, [facility] [id number] [place] [address] 83688- 4505 Jul, [facility] [id number] [place] [address] 31611- 0783 Jul, Bipolar 2 disorder F31.81 ; Panic disorder with agoraphobia F40.01 ; PTSD (post-traumatic stress disorder) F43.10 and Epilepsy G40.909 [facility] [id number] [place] [address] 82660- 9951 Jul, [facility] [id number] [place] [address] 40563- 8174 Jul, Type 2 diabetes mellitus without complications E11.9 and Coughing R05 [facility] [id number] [place] [address] 99054- 0724 Jul, [facility] [id number] [place] [address] 44138- 2782 Jun, [facility] [id number] [place] [address] 32385- 9692 Jun, Bipolar 2 disorder F31.81 ; PTSD (post-traumatic stress disorder) F43.10 and Panic disorder with agoraphobia F40.01 [facility] [id number] [place] [address] 47518- 3142 Jun, [facility] [id number] [place] [address] 00706- 5217 Jun, [facility] [id number] [place] [address] 52279- 0967 Jun, [facility] [id number] [place] [address] 51925- 5513 Jun, Type 2 diabetes mellitus without complications E11.9 and COPD (chronic obstructive pulmonary disease) J44.9 [facility] [id number] [place] [address] [id number] May, Dental examination Z01.20 and Dental caries K02.9 [facility] [id number] [place] [address] 26845- 6713 May, Bipolar 2 disorder F31.81 ; PTSD (post-traumatic stress disorder) F43.10 and Panic disorder with agoraphobia F40.01 [address] [id number] [place] [address] 67004- 1888 May, Lumbago with sciatica, right side M54.41 ; Other chronic pain G89.29 and Uncontrolled type 2 diabetes mellitus without complication, without long-term current use of insulin E11.65 [place] [id number] [place] [address] 04295- 1220 May, Chronic bronchitis, unspecified chronic bronchitis type J42 [place] [id number] [place] [address] 70579- 1568 May, [id number] [place] [address] 69442- 2595 May, [place] [id number] [place] [address] 63490- 3618 May, Chest pain, unspecified type R07.9 ; [...] and Bipolar 2 disorder F31.81 [place] [id number] [place] [address] 80479- 7066 May, Bipolar 2 disorder F31.81 ; Panic disorder with agoraphobia F40.01 and Tobacco abuse Z72.0 [place] [id number] [place] [address] 36109- 4658 Apr, [id number] [place] [address] 45089- 0078 Apr, [address] [id number] [place] [address] 00940- 3242 Apr, [id number] [place] [address] 76863- 1574 23 Apr, 2016 Bipolar 2 disorder F31.81 ; Panic disorder with agoraphobia F40.01 and PTSD (post-traumatic stress disorder) F43.10 [address] [place] [id number] [place] [address] 58516- 3048 23 Apr, 2016 Chronic bronchitis, unspecified chronic bronchitis type J42 ; Cervical neuritis M54.12 and Thoracic neuritis M54.14 [place] [address] 93155- 2485 15 Apr, 2016 [place] [address] 02490- 8849 15 Apr, 2016 Cervicalgia M54.2 [place] [id number] [place] [address] 49761- 6811 Apr, Bipolar 2 disorder F31.81 ; Panic disorder with agoraphobia F40.01 and PTSD (post-traumatic stress disorder) F43.10 [facility] [id number] [place] [address] 51660 -0865 13 Apr, 2016 [facility] [address] 29442 -7816 09 Apr, 2016 Cough R05 and Tobacco dependence F17.200 [place] [id number] [place] [address] 57655- 0643 Apr, [place] [id number] [place] [address] 68283- 9746 Apr, [address] [id number] [place] [address] 42473- 5217 March, Bipolar 2 disorder F31.81 ; Panic disorder with agoraphobia F40.01 and Generalized anxiety disorder F41.1 [place] [id number] [place] [address] 68007- 4948 March, Closed displaced fracture of fifth metatarsal bone of right foot with routine healing, subsequent encounter S92.351D [place] [id number] [place] [address] 54808- 7663 March, Bronchitis J40 [place] [address] 53502- 7922 March, [place] [id number] [place] [address] 85886- 4182 March, [place] [address] 23933- 4975 March, Foot pain, right M79.671 ; Cervicalgia M54.2 and 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 mellitus without complication, unspecified chcf insulin use status E11.9 [place] [address] 62804- 4808 March, Fracture of fifth metatarsal bone of right foot S92.351A [place] [address] 29608- 3874 March, [place] [address] 20490- 3744 Jan, Fracture of fifth metatarsal bone of right foot S92.351A [address] [address] 37394- 5480 Jan, Bipolar 2 disorder F31.81 ; PTSD (post-traumatic stress disorder) F43.10 ; Panic disorder with agoraphobia F40.01 and Epilepsy G40.909 [place] [id number] [place] [address] 10301- 3298 Jan, History of RI (myocardial infarction) I25.2 and History of high cholesterol Z86.39 [place] [address] 78408- 1199 Jan, Bipolar 2 disorder F31.81 ; Panic disorder with agoraphobia F40.01 ; Tobacco abuse Z72.0 and PTSD (post-traumatic stress disorder) F43.10 [place] [address] [place] [address]- 1480 Jan, Fracture of fifth metatarsal bone of right foot S92.351A [address] [address] 36375- 0133 Jan, [place] [address] 90798- 0281 Jan, History of high cholesterol Z86.39 [address] [address] 36924- 8593 Jan, History of RI (myocardial infarction) I25.2 [address] [address] 13927- 9611 Jan, [place] [address] 65506- 6498 Dec, Back pain M54.9 ; Diabetes E11.9 ; Right knee pain M25.561 and Chest pain R07.9 [address] [address] 08152- 3503 Dec, [address] [address] 03792- 1222 Dec, [address] [address] 61637- 6175 Dec, Cervicalgia M54.[address] 53193- 7787 Dec, Bipolar 2 disorder F31.81 ; PTSD (post-traumatic stress disorder) F43.10 ; Panic disorder with agoraphobia F40.01 and Epilepsy G40.909 [address] [address] 99295- 2802 08 Jan, 2016 Bipolar 2 disorder F31.81 ; PTSD (post-traumatic stress disorder) F43.10 and Panic disorder with agoraphobia F40.01 [address] [address] 34097- 1235 Dec, Diabetes E11.9 [facility] [id number] [place] [address] 06146- 5737 Dec, [facility] [id number] [place] [address] 47627- 2205 Dec, Other chronic pain G89.29 ; Hepatitis C B19.20 and History of seizures Z87.898 [facility] [address] 85736- 5824 24 Dec, 2015 [facility] [address] 85626- 9941 Dec, Bipolar 2 disorder F31.81 and Other chronic pain G89.29 [facility] [address] 75025- 0116 Dec, Cervicalgia M54.2 and Diabetes E11.9 [facility] [address] 74659- 1367 Dec, [facility] [id number] [place] [address] 85279- 1052 Dec, [facility] [id number] [place] [address] 77040- 2318 Dec, [facility] [id number] [place] [address] 84594- 1776 Dec, [facility] [id number] [place] [address] 64008- 5951 Dec, Type 2 diabetes mellitus without complications E11.9 [facility] [id number] [place] [address] 05163- 3541 10 Dec, 2015 [facility] [id number] [place] [address] 08544- 3447 09 Dec, 2015 History of seizures Z87.898 and Hepatitis C B19.20 [facility] [id number] [place] [address] 56617- 9955 Dec, Hepatitis C B19.20 [id number] [place] [address] 33855- 9136 Dec, [address] 50201- 5435 Dec, Cervicalgia M54.2 ; COPD (chronic obstructive pulmonary disease) J44.9 and Hepatitis C B19.[address] 38490- 6215 Dec, Bipolar 2 disorder F31.81 ; History of hypertension Z86.79 ; History of anxiety Z86.59 ; Panic disorder with agoraphobia F40.01 and Epilepsy G40.909 [id number] [place] [address] 98951- 4500 Nov, [address] 81889- 0143 Nov, [id number] [place] [address] 20427- 1965 Nov, History of seizures Z87.898 ; OAB (overactive bladder) N32.81 ; Lumbago M54.5 ; Other chronic pain G89.29 ; Cervicalgia M54.2 ; Tobacco abuse Z72.0 ; Tobacco abuse counseling Z71.6 and Impaired fasting glucose R73.[address] 08467- 7585 Nov, Bipolar 2 disorder F31.81 ; PTSD (post-traumatic stress disorder) F43.10 ; History of anxiety Z86.59 ; History of COPD Z87.09 ; Panic disorder with agoraphobia F40.01 and Moderate depressed bipolar I disorder F31.32 [id number] [place] [address] 90813- 4963 Nov, PTSD (post-traumatic stress disorder) F43.10 [facility] [id number] [place] [address] [id number] Nov, Dental examination Z01.20 and Dental caries K02.9 [address] [id number] [place] [address] 89219- 0374 Nov, History of hypertension Z86.79 ; History of hypothyroidism Z86.39 ; History of high cholesterol Z86.39 ; History of COPD Z87.09 and Overactive bladder N32.81 [address] [id number] [place] [address] 43075- 4502 Nov, Bipolar 2 disorder F31.81 and PTSD (post-traumatic stress disorder) F43.10 [place] [id number] [place] [address] 38478- 2012 Nov, PTSD (post-traumatic stress disorder) F43.10 ; Panic disorder with agoraphobia F40.01 ; Epilepsy G40.909 and Moderate depressed bipolar I disorder F31.32 [id number] [place] [address] 04973- 1784 Nov, [place] [id number] [place] [address] 34444- 0531 Nov, [place] [id number] [place] [address] 51242- 0773 Oct, [place] [id number] [place] [address] 76050- 1255 Oct, Generalized anxiety disorder F41.1 ; Major depression, recurrent F33.9 and PTSD (post-traumatic stress disorder) F43.10 [address] [id number] [place] [address] 69316- 3156 Oct, Elevated fasting glucose R73.01 [id number] [place] [address] 53473- 5118 Oct, Elevated fasting glucose R73.01 [address] [id number] [place] [address] 75009- 1728 17 Oct, 2015 History of COPD Z87.09 [place] [id number] [address]- 6309 15 Oct, 2015 General medical exam Z00.00 ; History of hypertension Z86.79 ; History of hypothyroidism Z86.39 ; History of hepatitis Z86.19 ; History of high cholesterol Z86.39 and History of seizures Z87.898 [facility] [address] [address]- 2896 10 Oct, 2015 General medical exam Z00.00 ; History of hypertension Z86.79 ; History of hypothyroidism Z86.39 ; Bipolar 2 disorder F31.81 ; PTSD ( post-traumatic stress disorder) F43.10 ; History of hepatitis Z86.19 ; History of high cholesterol Z86.39 ; History of anxiety Z86.59 ; History of seizures Z87.898 ; History of RI (myocardial infarction) I25.2 and History of COPD Z87.09 [address] [id number] [place] [address] 37509- 2023 Oct, Generalized anxiety disorder F41.1 ; Depression F32.9 and PTSD (post-traumatic stress disorder) F43.10 [facility] [address] [address]- 3741 Jan, [place] [id number] [address]- 7966 Jan, [facility] [id number] [address]- 5153 Jun, [address] [id number] Jun, [facility] [id number] [address]- 7957 May, [facility] [id number] [address]- 5591 May, [address] [id number] May, [facility] [id number] [address]- 2966 May, [address] [id number] May, [facility] [address] [facility] [id number] [place] [id number]- 2258 May, IMMUNIZATIONS No Known Immunizations SOCIAL HISTORY Never Assessed REASON FOR VISIT Xray (walk-in) MHill RT(R) PLAN OF CARE VITAL SIGNS MEDICATIONS Unknown Medications RESULTS Name Result Date Reference Range Xray : Spine, Lumbar 2-3 views (IN HOUSE) 2017-12-15 PROCEDURES Procedure Date Ordered Result Body Site X-RAY EXAM OF LOWER SPINE Dec 15, 2017 INSTRUCTIONS MEDICATIONS ADMINISTERED No Known Medications MEDICAL [...]
--- OUTSIDE RECORDS SUMMARY | 2019-01-26 07:41 | XMS REPORT ---
Author Author GERARDO KISER [facility] Address [address] [place] [address] Care Team Providers Care Contact Agent Name Role Phone GERARDO KISER Unavailable PROBLEMS Type Condition ICD9-CM Code ANE20-BK Code Onset Dates Condition Status SNOMED Code Problem OAB (overactive bladder) N32.81 Active 467577855 Problem Epilepsy G40.909 Active 55145570 Problem Cervicalgia M54.2 Active 52734195 Problem Other chronic pain G89.29 Active 35750112 Problem Tobacco abuse Z72.0 Active 09948698 Problem Lumbago M54.5 Active 369725421 Problem Hepatitis C B19.20 Active 19702642 Problem COPD (chronic obstructive pulmonary disease) J44.9 Active 05935278 Problem Diabetes E11.9 Active 99403735 Problem Bipolar I disorder with duy F31.10 Active 00758782 Problem Type 2 diabetes mellitus without complications E11.9 Active 246515736 Problem Stress incontinence of urine N39.3 Active 21759943 Problem Bilateral claudication of lower limb I73.9 Active 322603532 Problem Seasonal allergic rhinitis due to other allergic trigger J30.89 Active 477793281 Problem Hyperlipidemia, unspecified hyperlipidemia type E78.5 Active 88440967 Problem Hypertension, unspecified type I10 Active 10967701 Problem Chronic tension-type headache, not intractable G44.229 Active 918209150 Problem 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 mellitus without complication, without long -term current use of insulin E11.9 Active 783098619 Problem Type 2 diabetes mellitus with hyperglycemia E11.65 Active 213627337 Problem Chronic post-traumatic stress disorder (PTSD) F43.12 Active 856617058 Problem History of hypothyroidism Z86.39 Active 642173091 Problem Hypoglycemia E16.2 Active 603340117 Problem El's esophageal ulceration K22.10 Active 280445752 Problem Bipolar affective disorder, currently depressed, mild F31.31 Active 213410110 Problem Irritable bowel syndrome with diarrhea K58.0 Active 602601115 Problem Stress incontinence N39.3 Active 85516120 Problem History of hypertension Z86.79 Active 196557428 Problem Uncontrolled type 2 diabetes mellitus without complication, without long-term current use of insulin E11.65 Active 405438246 Problem Panic disorder with agoraphobia F40.01 Active 31862877 Problem Type 2 diabetes mellitus with hyperglycemia E11.65 Active 703281157 Problem History of seizures Z87.898 Active 893775690 Problem halfway current use of insulin Z79.4 Active 075383234 Problem History of [place] (myocardial infarction) I25.2 Active 009595813 Problem Mood disorder F39 Active 81882173 Problem Bipolar 2 disorder F31.81 Active 43159206 Problem Gastritis and duodenitis K29.90 Active 783481722 Problem History of high cholesterol Z86.39 Active 813818173 Problem Bipolar I disorder with mood-congruent psychotic features F31.9 Active 889838298 Problem Hypertension, benign I10 Active 87025809 Problem Primary insomnia F51.01 Active 1823526 ALLERGIES Substance Reaction Event Type Date Status Penicillin V Potassium Unknown Drug Allergy Dec, Active Metformin HCl diarrhea Drug Allergy Dec, Active Fentanyl halucinations/insomnia Drug Allergy Dec, Active ENCOUNTERS Encounter Location Date Diagnosis [place] [address] [address] May, [facility] [place] [address] [address] May, [facility] [place] [address] [address] Apr, Abnormal CT of the chest R93.8 [facility] [place] [address] [address]- 5[address] Apr, Bipolar 2 disorder F31.81 ; Chronic post-traumatic stress disorder (PTSD) F43.12 and Panic disorder with agoraphobia F40.01 [facility] [place] [address] [place] [id number] [place] [address] 39837- [address] Apr, [address] of the chest R93.8 [facility] [place] [address] [place] [address] 20 Apr, [address] of the chest R93.8 [place] [address] [address]- 0[address] Apr, [place] [address] 31[address]- 7358 Apr, Type 2 diabetes mellitus with hyperglycemia E11.65 [place] [address] [address]68- 4[address] Apr, 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 mellitus without complication, without long-term current use of insulin E11.9 ; Watery eyes H04.203 ; Low back pain M54.5 ; Other chronic pain G89.29 ; Chronic tension-type headache, not intractable G44.229 ; Uncontrolled type 2 diabetes mellitus without complication , without long-term current use of insulin E11.65 and Bronchitis J40 [place] [address] [address]- 47[address] Apr, [place] [address] [place] [id number] [place] [address] 66645- 0915 Apr, Lumbago M54.5 [place] [address] [address]- [address] March, [facility] [address] [place] [id number] [place] [address] 87071 -7510 March, Cough R05 ; Pneumonia due to infectious organism, unspecified laterality, unspecified part of lung J18.9 and Non-intractable vomiting with nausea, unspecified vomiting type R11.2 [place] [address] [place] [id number] [place] [address] 33916- 7867 March, Bronchitis J40 [place] [address] 17224- 5086 March, [place] [address] [place] [id number] [place] [address] 11859- 2388 March, El's esophageal ulceration K22.10 and Type 2 diabetes mellitus with hyperglycemia E11.65 [facility] [place] [address] [address] March, Panic disorder with agoraphobia F40.01 ; Chronic post- traumatic stress disorder (PTSD) F43.12 and Bipolar 2 disorder F31.81 [facility] [place] [address] [place] [id number] [place] [address] 94405- 8410 March, Type 2 diabetes mellitus with hyperglycemia E11.65 [facility] [place] [address] [place] [id number] [place] [address] 48918- 9450 March, [facility] [place] [address] [place] [id number] [place] [address] 36871- 3369 March, Lumbago M54.5 [facility] [place] [address] [place] [id number] [place] [address] 41546- 7563 March, [facility] [place] [address] [place] [id number] [place] [address] 91097- 3068 March, Irritable bowel syndrome with diarrhea K58.0 ; Primary insomnia F51.01 ; Type 2 diabetes mellitus with hyperglycemia E11.65 and 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 [facility] [place] [address] [place] [id number] [place] [address] 75469- 9578 March, [facility] [place] [id number] [place] [address] 66994- 0569 Jan, [facility] [place] [address] [place] [id number] [place] [address] 92989- 8919 Jan, [facility] [place] [address] [place] [id number] [place] [address] 53509- 1977 Jan, [facility] [place] [address] [place] [id number] [place] [address] 11783- 4881 Jan, [facility] [place] [id number] [place] [address] 52452- 3405 Jan, Dizziness R42 [facility] [place] [address] [place] [id number] [place] [address] 88383- 5591 Jan, Bipolar affective disorder, currently depressed, mild F31.31 ; Panic disorder with agoraphobia F40.01 and Chronic post-traumatic stress disorder (PTSD) F43.12 [place] [address] [place] [id number] [place] [address] 28914- 9871 Jan, Dizziness R42 [place] [address] [place] [id number] [place] [address] 92014- 4307 Jan, Chest pain, unspecified type R07.9 ; Exertional dyspnea R06.09 ; Hypertension, unspecified type I10 and Hyperlipidemia, unspecified hyperlipidemia type E78.5 [place] [address] [address]- 4646 Jan, [place] [address] [place] [id number] [place] [address] 56349- 7283 Jan, Lumbago M54.5 [place] [address] [place] [id number] [place] [address] 60565- 9716 Jan, El's esophageal ulceration K22.10 ; Blister (nonthermal ) of oral cavity, initial encounter S00.522A ; Local infection of the skin and subcutaneous tissue, unspecified L08.9 ; Type 2 diabetes mellitus with hyperglycemia E11.65 ; halfway current use of insulin Z79.4 and Stress incontinence N39.3 [place] [id number] [place] [address] 47522- 8139 Dec, [place] [address] [place] [id number] [place] [address] 31692- 1330 Dec, [place] [address] [place] [id number] [place] [address] 02215- 6683 Dec, [facility] [address] [place] [id number] [place] [address] [id number] Dec, Dental examination Z01.20 [place] [id number] [place] [address] 54719- 2907 15 Dec, 2017 Acute pain of right knee M25.561 [place] [address] [place] [id number] [place] [address] 77850- 4369 14 Dec, 2017 [facility] [place] [address] 7[address]- 1522 14 Dec, 2017 [place] [address] [place] [id number] [place] [address] 96498- 8090 14 Dec, 2017 Lumbago M54.5 ; Acute pain of right knee M25.561 and Seasonal allergic rhinitis due to other allergic trigger J30.89 [place] [address] [place] [id number] [place] [address] 57983- 1255 12 Dec, 2017 Type 2 diabetes mellitus with hyperglycemia E11.65 [place] [address] [place] [id number] [place] [address] 18199- 3739 08 Dec, 2017 [place] [address] [place] [id number] [place] [address] 55198- 5005 08 Dec, 2017 [place] [address] [place] [id number] [place] [address] 96894- 5156 23 Dec, 2017 [place] [address] [place] [id number] [place] [address] 84517- 2932 15 Dec, 2017 [place] [address] [place] [id number] [place] [address] 17856- 2501 15 Dec, 2017 Chronic post-traumatic stress disorder (PTSD) F43.12 and Panic disorder with agoraphobia F40.01 [place] [address] [place] [id number] [place] [address] 65445- 1668 13 Dec, 2017 Low back pain M54.5 [place] [address] [place] [id number] [place] [address] 15474- 0432 12 Dec, 2017 Type 2 diabetes mellitus with hyperglycemia E11.65 ; 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 ; Low back pain M54.5 ; Encounter for therapeutic drug level monitoring Z51.81 and Other chronic pain G89.29 [place] [address] [place] [id number] [place] [address] 65002- 1891 Dec, Coughing R05 [facility] [place] [address] [address]- 7763 Dec, [facility] [id number] [id number] Dec, Dental examination Z01.20 [facility] [place] [id number] [place] [address] 41374- 7463 Nov, Type 2 diabetes mellitus without complications E11.9 and Encounter for therapeutic drug level monitoring Z51.81 [facility] [place] [id number] [place] [address] 39449- 2619 Nov, [facility] [place] [address] [place] [id number] [place] [address] 94808- 3602 Oct, Type 2 diabetes mellitus without complications E11.9 [facility] [place] [address] [place] [id number] [place] [address] 25951- 4840 Oct, Type 2 diabetes mellitus with hyperglycemia E11.65 [facility] [place] [id number] [place] [address] 81660- 3424 Aug, Type 2 diabetes mellitus without complications E11.9 [facility] [place] [address] [place] [id number] [place] [address] 34513- 3079 Aug, Type 2 diabetes mellitus without complications E11.9 ; Hypoglycemia E16.2 ; Lumbago M54.5 ; Stress incontinence of urine N39.3 and History of [place] (myocardial infarction) I25.2 [facility] [place] [address] [address]- 3893 Jun, [facility] [place] [id number] [place] [address] 87893- 2607 May, [facility] [place] [id number] [place] [address] 68471- 6001 Apr, Panic disorder with agoraphobia F40.01 [facility] [place] [id number] [place] [address] 25916- 6249 Apr, Panic disorder with agoraphobia F40.01 [facility] [place] [address] [address]- 7615 Apr, [facility] [place] [address] [place] [id number] [place] [address] 67485- 4191 March, Other chronic pain G89.29 [facility] [place] [address] [place] [id number] [place] [address] 74617- 4411 March, [facility] [place] [address] [place] [id number] [place] [address] 61988- 6818 March, [facility] [place] [address] [place] [id number] [place] [address] 31325- 7212 March, [facility] [place] [address] [place] [id number] [place] [address] 51977- 0035 March, [place] [address] [place] [id number] [place] [address] 55775- 0930 March, Type 2 diabetes mellitus without complications E11.9 [place] [address] [address]- 5757 March, Diarrhea, unspecified type R19.7 [place] [address] [place] [id number] [place] [address] 46785- 9544 March, Bipolar 2 disorder F31.81 ; Chronic post-traumatic stress disorder (PTSD) F43.12 and Type 2 diabetes mellitus with hyperglycemia E11.65 [place] [address] [address]- 6987 March, [facility] [place] [address] [address]- 2539 March, [place] [address] [place] [id number] [place] [address] 99856- 0228 March, Hypertension, benign I10 ; Type 2 diabetes mellitus with hyperglycemia E11.65 ; Hepatitis C B19.20 ; Gastritis and duodenitis K29.90 and Dysuria R30.0 [place] [address] [place] [id number] [place] [address] 89761- 4066 March, Hypertension, benign I10 ; Type 2 diabetes mellitus with hyperglycemia E11.65 ; Hepatitis C B19.20 ; Gastritis and duodenitis K29.90 and Dysuria R30.0 [place] [address] [place] [id number] [place] [address] 26504- 2933 March, Panic disorder with agoraphobia F40.01 ; Chronic post- traumatic stress disorder (PTSD) F43.12 ; Epilepsy G40.909 and Bipolar I disorder with mood-congruent psychotic features F31.9 [place] [address] [place] [id number] [place] [address] 38163- 8588 March, [place] [address] [place] [id number] [place] [address] 38893- 5595 March, Type 2 diabetes mellitus with hyperglycemia E11.65 [place] [address] [place] [id number] [place] [address] 50569- 3575 18 Jan, 2017 Bipolar I disorder with duy F31.10 [place] [address] [place] [id number] [place] [address] 24995- 2895 Jan, Bipolar 2 disorder F31.81 ; Chronic post-traumatic stress disorder (PTSD) F43.12 and Type 2 diabetes mellitus with hyperglycemia E11.65 [place] [address] [place] [address] 21673- 3678 Jan, [place] [address] [place] [id number] [place] [address] 99798- 3007 Jan, [place] [address] [place] [id number] [place] [address] 47814- 5961 14 Jan, 2017 Panic disorder with agoraphobia F40.01 [place] [address] [place] [id number] [place] [address] 29223- 2141 Jan, Panic disorder with agoraphobia F40.01 ; Bipolar I disorder with mood-congruent psychotic features F31.9 ; Chronic post-traumatic stress disorder (PTSD) F43.12 and Epilepsy G40.909 [facility] [place] [address], [place] [address]- 4656 Jan, [facility] [place] [address] [place] [id number] [place] [address] 20424- 3697 Jan, [facility] [place] [id number] [place] [address] 74972- 9737 10 Jan, 2017 Type 2 diabetes mellitus without complications E11.9 and Hypoglycemia E16.2 [facility] [place] [address] [place] [id number] [place] [address] 02640- 8751 07 Jan, 2017 Type 2 diabetes mellitus without complications E11.9 ; Primary insomnia F51.01 and Hypertension, benign I10 [facility] [place] [address] [place] [id number] [place] [address] 50920- 5414 Jan, [facility] [address] [place] [id number] [place] [address] [id number] Jan, [facility] [place] [address] [place] [id number] [place] [address] 32108- 3696 Dec, Type 2 diabetes mellitus with hyperglycemia E11.65 [facility] [place] [address] [place] [id number] [place] [address] 95489- 5323 Dec, [facility] [place] [address] [place] [id number] [place] [address] 79184- 3927 Dec, Bipolar 2 disorder F31.81 ; Panic disorder with agoraphobia F40.01 ; Chronic post-traumatic stress disorder (PTSD) F43.12 and Epilepsy G40.909 [facility] [place] [address], [place] [address]- 9436 Dec, [facility] [place] [address] [place] [id number] [place] [address] 86992- 9619 14 Dec, 2016 [facility] [place] [id number] [place] [address] 26073- 7351 09 Dec, 2016 Bipolar 2 disorder F31.81 ; Panic disorder with agoraphobia F40.01 ; Chronic post-traumatic stress disorder (PTSD) F43.12 and Epilepsy G40.909 [place] [address] [place] [id number] [place] [address] 27195- 0003 Dec, [place] [address] 74669- 7671 Dec, [place] [address] 12698- 5876 Dec, [place] [address] 05914- 5897 Dec, Type 2 diabetes mellitus with hyperglycemia E11.65 ; 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 and Lumbago M54.5 [place] [address] 10463- 2703 Dec, [place] [address] 40248- 8884 Dec, [place] [address] 03076- 0019 Dec, [facility] [address] [place] [id number] [place] [address] 46773 -9093 Dec, Pain of left leg M79.605 and Pain in right leg M79.604 [place] [address] [place] [id number] [place] [address] 17305- 7888 Dec, [place] [address] [place] [id number] [place] [address] 71308- 7468 Dec, Type 2 diabetes mellitus with hyperglycemia E11.65 [place] [address] [place] [id number] [place] [address] 40815- 5857 Dec, [place] [address] 42345- 5233 Dec, Type 2 diabetes mellitus with hyperglycemia E11.65 ; 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 ; Vagina, candidiasis B37.3 and Other chronic pain G89.29 [place] [address] [address]- 4799 Nov, Panic disorder with agoraphobia F40.01 [facility] [place] [address] [place] [id number] [place] [address] 27972- 5522 Nov, [facility] [place] [address] [place] [id number] [place] [address] 25906- 8353 Nov, [facility] [place] [address] [place] [id number] [place] [address] 25789- 2699 Nov, Hypoglycemia E16.2 [facility] [place] [address] [place] [id number] [place] [address] 12528- 7929 Nov, [facility] [place] [address] [place] [id number] [place] [address] 24481- 7630 Nov, [place] [address] [place] [id number] [place] [address] 74723- 1390 Nov, [facility] [place] [address] [place] [id number] [place] [address] 86743- 6588 Nov, Type 2 diabetes mellitus with hyperglycemia E11.65 and 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 [place] [address] [place] [id number] [place] [address] 87192- 4762 Nov, Panic disorder with agoraphobia F40.01 ; Bipolar 2 disorder F31.81 ; Chronic post-traumatic stress disorder (PTSD) F43.12 and Epilepsy G40.909 [facility] [place] [id number] [place] [address] 05651- 0175 Nov, Panic disorder with agoraphobia F40.01 [facility] [place] [id number] [place] [address] 53196- 1908 Oct, [facility] [place] [id number] [place] [address] 63716- 0170 Oct, [facility] [place] [id number] [place] [address] 60864- 2068 Oct, Bipolar 2 disorder F31.81 ; Panic disorder with agoraphobia F40.01 and Mood disorder F39 [facility] [place] [address] [place] [id number] [place] [address] 24971- 2797 Oct, Diabetes E11.9 ; Type 2 diabetes mellitus with hyperglycemia E11.65 and 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 [facility] [place] [address] [id number] [place] [address] 60685- 5881 Oct, [facility] [place] [id number] [place] [address] 17007- 5300 Sep, [facility] [place] [id number] [place] [address] 10230- 7944 Sep, Bipolar 2 disorder F31.81 and Mood disorder F39 [facility], [place], [facility] [id number] [place] [address] [id number] Sep, [facility], [place], [facility] [address] [phone] Sep, Uncontrolled type 2 diabetes mellitus without complication, without long-term current use of insulin E11.65 [facility], [place], [facility] [id number] [place] [phone] Sep, [facility] [facility] [place] [id number] [place] [address] 78832- 4071 Sep, [facility] [place] [id number] [place] [address] 95620- 5714 Sep, [facility] [place] [id number] [place] [address] 58442- 8818 Sep, [facility] [place] [id number] [place] [address] 04475- 7500 Sep, Bipolar 2 disorder F31.81 ; Chronic post-traumatic stress disorder (PTSD) F43.12 ; Panic disorder with agoraphobia F40.01 and Epilepsy G40.909 [facility] [place] [id number] [place] [address] 33117- 2029 Sep, Bipolar 2 disorder F31.81 ; PTSD (post-traumatic stress disorder) F43.10 and Panic disorder with agoraphobia F40.01 [facility] [place] [id number] [place] [address] 54056- 7036 Sep, [facility] [place] [id number] [place] [address] 58272- 3708 28 Aug, 2016 History of seizures Z87.898 ; Panic disorder with agoraphobia F40.01 and Bipolar 2 disorder F31.81 [facility] [place] [id number] [place] [address] 74199- 8359 19 Aug, 2016 [facility] [place] [address] 09013- 0426 17 Aug, 2016 [facility] [place] [id number] [place] [address] 08416- 9246 Aug, [facility] [place] [address] 53282- 1465 Aug, [facility] [place] [id number] [place] [address] 00225- 7480 Aug, [facility] [place] [id number] [place] [address] 99608- 1037 Aug, [facility] [place] [id number] [place] [address] 89082- 1380 Aug, Hypoglycemia E16.2 and Bilateral impacted cerumen H61.23 [facility] [place] [id number] [place] [address] 89706- 5812 Aug, [facility] [place] [id number] [place] [address] 62616- 2546 Jul, [facility] [place] [id number] [place] [address] 51844- 2549 Jul, [facility] [place] [id number] [place] [address] 10398- 2546 15 Jul, 2016 Bipolar 2 disorder F31.81 ; Panic disorder with agoraphobia F40.01 ; PTSD (post-traumatic stress disorder) F43.10 and Epilepsy G40.909 [facility] [place] [id number] [place] [address] [id number]- 7242 Jul, [facility] [place] [id number] [place] [address] 25100- 6600 09 Jul, 2016 Type 2 diabetes mellitus without complications E11.9 and Coughing R05 [facility] [place] [id number] [place] [address] 95923- 4688 Jul, [facility] [place] [id number] [place] [address] 25257- 0347 Jun, [facility] [place] [id number] [place] [address] 02344- 6779 Jun, Bipolar 2 disorder F31.81 ; PTSD (post-traumatic stress disorder) F43.10 and Panic disorder with agoraphobia F40.01 [facility] [place] [id number] [place] [address] 84871- 1526 Jun, [facility] [place] [id number] [place] [address] 44060- 1313 Jun, [facility] [place] [id number] [place] [address] 12708- 6607 Jun, [facility] [place] [id number] [place] [address] 22282- 5146 Jun, Type 2 diabetes mellitus without complications E11.9 and COPD (chronic obstructive pulmonary disease) J44.9 [facility] [id number] [id number] May, Dental examination Z01.20 and Dental caries K02.9 [facility] [place] [id number] [place] [address] 69428- 1786 May, Bipolar 2 disorder F31.81 ; PTSD (post-traumatic stress disorder) F43.10 and Panic disorder with agoraphobia F40.01 [facility] [place] [address] [address]- 8288 May, Lumbago with sciatica, right side M54.41 ; Other chronic pain G89.29 and Uncontrolled type 2 diabetes mellitus without complication, without long-term current use of insulin E11.65 [facility] [id number] [address]- 9459 May, Chronic bronchitis, unspecified chronic bronchitis type J42 [facility] [id number] [place] [address] 33852- 7883 May, [address] [id number] [place] [address] 93208- 2987 May, [facility] [id number] [place] [address] 78693- 0159 May, Chest pain, unspecified type R07.9 ; Tobacco use Z72.0 ; Type 2 diabetes mellitus without complications E11.9 ; Essential hypertension I10 ; Hyperlipidemia, unspecified hyperlipidemia type E78.5 ; Obesity (BMI 30- 39.9) E66.9 ; History of hypothyroidism Z86.39 ; Chronic obstructive pulmonary disease, unspecified COPD type J44.9 ; Anxiety F41.9 ; Bilateral claudication of lower limb I73.9 and Bipolar 2 disorder F31.81 [id number] [place] [address] 11489- 5642 May, Bipolar 2 disorder F31.81 ; Panic disorder with agoraphobia F40.01 and Tobacco abuse Z72.0 [address] [facility] [address]- 9902 Apr, [facility] [id number] [place] [address] 39744- 3938 Apr, [facility] [id number] [place] [address] 38695- 2094 Apr, [facility] [id number] [place] [address] 32003- 1631 Apr, Bipolar 2 disorder F31.81 ; Panic disorder with agoraphobia F40.01 and PTSD (post-traumatic stress disorder) F43.10 [address] 66672- 7210 23 Apr, 2016 Chronic bronchitis, unspecified chronic bronchitis type J42 ; Cervical neuritis M54.12 and Thoracic neuritis M54.14 [address] 80820- 1813 15 Apr, 2016 [address] [address] 67432- 1806 15 Apr, [address] 546474- 8247 Apr, Bipolar 2 disorder F31.81 ; Panic disorder with agoraphobia F40.01 and PTSD (post-traumatic stress disorder) F43.10 [facility] [address] 64784 -4994 Apr, [facility] [address] 63244 -0151 09 Apr, 2016 Cough R05 and Tobacco dependence F17.200 [address] 32536- 6579 06 Apr, 2016 [address] 73627- 7993 Apr, [address] [address] 950631- 6115 March, Bipolar 2 disorder F31.81 ; Panic disorder with agoraphobia F40.01 and Generalized anxiety disorder F41.[address] 07293- 7334 March, Closed displaced fracture of fifth metatarsal bone of right foot with routine healing, subsequent encounter S92.351D [address] 50005- 0299 March, Bronchitis J40 [address] [address]- 6897 March, [facility] [id number] [place] [address] 52270- 2360 March, [facility] [id number] [place] [address] 43649- 3898 March, Foot pain, right M79.671 ; Cervicalgia M54.2 and 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 mellitus without complication, unspecified long-term insulin use status E11.9 [facility] [id number] [place] [address] 63831- 6215 March, Fracture of fifth metatarsal bone of right foot S92.351A [facility] [id number] [place] [address] 26098- 2384 March, [facility] [id number] [place] [address] 08893- 3344 Jan, Fracture of fifth metatarsal bone of right foot S92.351A [facility] [id number] [place] [address] 97733- 4221 Jan, Bipolar 2 disorder F31.81 ; PTSD (post-traumatic stress disorder) F43.10 ; Panic disorder with agoraphobia F40.01 and Epilepsy G40.909 [id number] [place] [address] 87363- 7508 Jan, History of AZ (myocardial infarction) I25.2 and History of high cholesterol Z86.39 [address] [place] [address] 66243- 4708 Jan, Bipolar 2 disorder F31.81 ; Panic disorder with agoraphobia F40.01 ; Tobacco abuse Z72.0 and PTSD (post-traumatic stress disorder) F43.10 [address] [address]- 5162 Jan, Fracture of fifth metatarsal bone of right foot S92.351A [id number] [place] [address] 54208- 7637 Jan, [facility] [id number] [place] [address] 58200- 4318 Jan, History of high cholesterol Z86.39 [facility] [id number] [place] [address] 60291- 6916 Jan, History of AZ (myocardial infarction) I25.2 [facility] [id number] [place] [address] 11161- 5176 Jan, [facility] [id number] [place] [address] 03909- 5025 Dec, Back pain M54.9 ; Diabetes E11.9 ; Right knee pain M25.561 and Chest pain R07.9 [facility] [id number] [place] [address] 50618- 9942 Dec, [facility] [id number] [place] [address] 43584- 7005 Dec, [address] [id number] [place] [address] 80925- 6097 Dec, Cervicalgia M54.2 [address] [id number] [place] [address] 50978- 5486 Dec, Bipolar 2 disorder F31.81 ; PTSD (post-traumatic stress disorder) F43.10 ; Panic disorder with agoraphobia F40.01 and Epilepsy G40.909 [id number] [place] [address] 97082- 6548 08 Jan, 2016 Bipolar 2 disorder F31.81 ; PTSD (post-traumatic stress disorder) F43.10 and Panic disorder with agoraphobia F40.01 [id number] [place] [address] 09894- 0023 Dec, Diabetes E11.9 [address] [id number] [place] [address] 67075- 6800 Dec, [facility] [place] [id number] [place] [address] 93345- 6765 Dec, Other chronic pain G89.29 ; Hepatitis C B19.20 and History of seizures Z87.898 [facility] [place] [id number] [place] [address] 60360- 9971 24 Dec, 2015 [facility] [place] [address] 59439- 0088 Dec, Bipolar 2 disorder F31.81 and Other chronic pain G89.29 [facility] [place] [address] 68520- 2702 Dec, Cervicalgia M54.2 and Diabetes E11.9 [facility] [place] [address] 24644- 1739 Dec, [facility] [place] [address] 60605- 0308 Dec, [facility] [place] [id number] [place] [address] 14127- 6158 Dec, [facility] [place] [id number] [place] [address] 45283- 2402 16 Dec, 2015 [facility] [place] [id number] [place] [address] 46140- 7686 Dec, Type 2 diabetes mellitus without complications E11.9 [facility] [place] [id number] [place] [address] 78801- 8951 10 Dec, 2015 [facility] [place] [id number] [place] [address] 60131- 9492 09 Dec, 2015 History of seizures Z87.898 and Hepatitis C B19.20 [facility] [place] [id number] [place] [address] 50546- 9525 08 Dec, 2015 Hepatitis C B19.20 [facility] [place] [address] [place] [address]- 0160 04 Dec, 2015 [facility] [place] [address] 42502- 7679 04 Dec, 2015 Cervicalgia M54.2 ; COPD (chronic obstructive pulmonary disease) J44.9 and Hepatitis C B19.20 [facility] 49618- 6798 02 Dec, 2015 Bipolar 2 disorder F31.81 ; History of hypertension Z86.79 ; History of anxiety Z86.59 ; Panic disorder with agoraphobia F40.01 and Epilepsy G40.[address] 13472- 3448 Nov, [facility] [id number] [place] [address] 35834- 8425 Nov, [address] 49753- 1809 Nov, History of seizures Z87.898 ; OAB (overactive bladder) N32.81 ; Lumbago M54.5 ; Other chronic pain G89.29 ; Cervicalgia M54.2 ; Tobacco abuse Z72.0 ; Tobacco abuse counseling Z71.6 and Impaired fasting glucose R73.01 [facility] [id number] [place] [address] 19808- 2795 Nov, Bipolar 2 disorder F31.81 ; PTSD (post-traumatic stress disorder) F43.10 ; History of anxiety Z86.59 ; History of COPD Z87.09 ; Panic disorder with agoraphobia F40.01 and Moderate depressed bipolar I disorder F31.32 [id number] [place] [address] 38439- 0954 12 Nov, 2015 PTSD (post-traumatic stress disorder) F43.10 [facility] [id number] [place] [address] [id number] 11 Nov, 2015 Dental examination Z01.20 and Dental caries K02.9 [id number] [place] [address] 16138- 7690 Nov, History of hypertension Z86.79 ; History of hypothyroidism Z86.39 ; History of high cholesterol Z86.39 ; History of COPD Z87.09 and Overactive bladder N32.81 [facility] [id number] [place] [address] 33588- 0874 Nov, Bipolar 2 disorder F31.81 and PTSD (post-traumatic stress disorder) F43.10 [facility] [id number] [place] [address] 24233- 0140 Nov, PTSD (post-traumatic stress disorder) F43.10 ; Panic disorder with agoraphobia F40.01 ; Epilepsy G40.909 and Moderate depressed bipolar I disorder F31.32 [id number] [place] [address] 60271- 0025 Nov, [address] 08185- 8342 Nov, [facility] [id number] [place] [address] 19723- 0327 Oct, [id number] [place] [address] 19193- 2496 Oct, Generalized anxiety disorder F41.1 ; Major depression, recurrent F33.9 and PTSD (post-traumatic stress disorder) F43.10 [id number] [place] [address] 64287- 6073 Oct, Elevated fasting glucose R73.01 [id number] [place] [address] 93083- 8121 Oct, Elevated fasting glucose R73.01 [facility] [id number] [place] [address] 68283- 5273 Oct, History of COPD Z87.09 [facility] [id number] [place] [address] 29610- 0719 15 Oct, 2015 General medical exam Z00.00 ; History of hypertension Z86.79 ; History of hypothyroidism Z86.39 ; History of hepatitis Z86.19 ; History of high cholesterol Z86.39 and History of seizures Z87.898 [address] [address]- 9690 10 Oct, 2015 General medical exam Z00.00 ; History of hypertension Z86.79 ; History of hypothyroidism Z86.39 ; Bipolar 2 disorder F31.81 ; PTSD ( post-traumatic stress disorder) F43.10 ; History of hepatitis Z86.19 ; History of high cholesterol Z86.39 ; History of anxiety Z86.59 ; History of seizures Z87.898 ; History of [place] (myocardial infarction) I25.2 and History of COPD Z87.09 [facility] [id number] [place] [address] 91280- 8088 Oct, Generalized anxiety disorder F41.1 ; Depression F32.9 and PTSD (post-traumatic stress disorder) F43.10 [facility] [address] [address]- 3544 Jan, [facility] [place] [id number] [place] [address] 85929- 5690 Jan, [facility] [place] [id number] [place] [address] 46899- 0588 Jun, [facility] [address] [place] [id number] Jun, [facility] [place] [address] [address]- 2643 May, [facility] [place] [address] [address]- 0932 May, [facility] [address] [place] [id number] May, [facility] [place] [address], [place] [address]- 9849 May, [facility] [address] [place] [id number] May, [facility] [place] [id number] [place] [address] [place] [address]- 4285 May, IMMUNIZATIONS No Known Immunizations SOCIAL HISTORY Never Assessed REASON FOR VISIT cough medicine PLAN OF CARE VITAL SIGNS MEDICATIONS Medication Instructions Dosage Frequency Start Date End Date Duration Status Robitussin DM 100-10 MG/5ML Orally every 4 hrs 10 ml as needed 4h Dec, Active RESULTS No Results PROCEDURES No Known procedures INSTRUCTIONS MEDICATIONS ADMINISTERED No Known Medications MEDICAL (GENERAL) HISTORY Type Description Date Medical History Hypothyroidism Medical History High cholesterol Medical History Hypertension Medical History Brain seizure Medical History Asthma Medical History COPD Medical History Hep C -2005 Medical History AZ x 2 last in 2009 Medical History PTSD (post-traumatic stress disorder) Medical History Colon Cancer 2016 Medical History diabites II Surgical History tonsillectomy 1985 Surgical History partial hysterectomy 2004 Surgical History appendectomy 2004 Hospitalization History Surgery(s) only Hospitalization History pneumonia x3 days Hospitalization History Heart cath with stint 05/15/2016 Hospitalization History Diverticulitis, N/V-[facility] 01/28/17
--- OUTSIDE RECORDS SUMMARY | 2019-01-26 07:41 | XMS REPORT ---
Author Author GERARDO KISER [facility] Address [address] [place] [address] Care Team Providers Care Benefits Sales Consultant Name Role Phone GERARDO KISER Unavailable PROBLEMS Type Condition ICD9-CM Code PLL27-JU Code Onset Dates Condition Status SNOMED Code Problem OAB (overactive bladder) N32.81 Active 239370089 Problem Epilepsy G40.909 Active 58100285 Problem Cervicalgia M54.2 Active 92700890 Problem Other chronic pain G89.29 Active 29096059 Problem Tobacco abuse Z72.0 Active 96828570 Problem Lumbago M54.5 Active 857869589 Problem Hepatitis C B19.20 Active 87128222 Problem COPD (chronic obstructive pulmonary disease) J44.9 Active 94421690 Problem Diabetes E11.9 Active 14561838 Problem Bipolar I disorder with duy F31.10 Active 81142056 Problem Type 2 diabetes mellitus without complications E11.9 Active 407390134 Problem Stress incontinence of urine N39.3 Active 32966433 Problem Bilateral claudication of lower limb I73.9 Active 819413729 Problem Seasonal allergic rhinitis due to other allergic trigger J30.89 Active 947241871 Problem Hyperlipidemia, unspecified hyperlipidemia type E78.5 Active 71551780 Problem Hypertension, unspecified type I10 Active 15826277 Problem Chronic tension-type headache, not intractable G44.229 Active 572337837 Problem 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 mellitus without complication, without long -term current use of insulin E11.9 Active 118254193 Problem Type 2 diabetes mellitus with hyperglycemia E11.65 Active 055267903 Problem Chronic post-traumatic stress disorder (PTSD) F43.12 Active 794953158 Problem History of hypothyroidism Z86.39 Active 549944885 Problem Hypoglycemia E16.2 Active 921383849 Problem El's esophageal ulceration K22.10 Active 034020358 Problem Bipolar affective disorder, currently depressed, mild F31.31 Active 987632183 Problem Irritable bowel syndrome with diarrhea K58.0 Active 599313950 Problem Stress incontinence N39.3 Active 23913829 Problem History of hypertension Z86.79 Active 418196784 Problem Uncontrolled type 2 diabetes mellitus without complication, without long-term current use of insulin E11.65 Active 643620284 Problem Panic disorder with agoraphobia F40.01 Active 47847494 Problem Type 2 diabetes mellitus with hyperglycemia E11.65 Active 902182365 Problem History of seizures Z87.898 Active 590240969 Problem FDC current use of insulin Z79.4 Active 183539928 Problem History of AR (myocardial infarction) I25.2 Active 495572708 Problem Mood disorder F39 Active 95546368 Problem Bipolar 2 disorder F31.81 Active 56414845 Problem Gastritis and duodenitis K29.90 Active 567102910 Problem History of high cholesterol Z86.39 Active 856864205 Problem Bipolar I disorder with mood-congruent psychotic features F31.9 Active 691039647 Problem Hypertension, benign I10 Active 53973926 Problem Primary insomnia F51.01 Active 6254510 ALLERGIES No Information ENCOUNTERS Encounter Location Date Diagnosis [facility] [id number] [place] [address] 38685- 0954 May, [facility] [address] 45963- 6572 May, [facility] [address] 06721- 9577 Apr, Abnormal CT of the chest R93.8 [facility] [address] 79950- 3295 Apr, Bipolar 2 disorder F31.81 ; Chronic post-traumatic stress disorder (PTSD) F43.12 and Panic disorder with agoraphobia F40.01 [facility] [id number] [place] [address] 51948- [address] Apr, [address] of the chest R93.8 [facility] [id number] [place] [address] 09408- [address] Apr, [address] of the chest R93.8 [facility] [address] [place] [address]- 8226 14 Apr, 2018 [place] [address] 08212- 3616 Apr, Type 2 diabetes mellitus with hyperglycemia E11.65 [facility] [address] 93691- 7104 Apr, 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 mellitus without complication, without long-term current use of insulin E11.9 ; Watery eyes H04.203 ; Low back pain M54.5 ; Other chronic pain G89.29 ; Chronic tension-type headache, not intractable G44.229 ; Uncontrolled type 2 diabetes mellitus without complication , without long-term current use of insulin E11.65 and Bronchitis J40 [place] [address] 15304- 4175 Apr, [place] [address] 71334- 5122 Apr, Lumbago M54.5 [facility] [id number] [place] [address] 52707- 7973 March, [facility] [address] [address] March, Cough R05 ; Pneumonia due to infectious organism, unspecified laterality, unspecified part of lung J18.9 and Non-intractable vomiting with nausea, unspecified vomiting type R11.2 [place] [id number] [place] [address] 30392- 6964 March, Bronchitis J40 [facility] [id number] [place] [address] 52356- 6293 March, [place] [address] 23031- 1011 March, El's esophageal ulceration K22.10 and Type 2 diabetes mellitus with hyperglycemia E11.65 [facility] [place] [id number] [place] [address] 15511- 9526 March, Panic disorder with agoraphobia F40.01 ; Chronic post- traumatic stress disorder (PTSD) F43.12 and Bipolar 2 disorder F31.81 [facility] [id number] [place] [address] 53035- 5929 March, Type 2 diabetes mellitus with hyperglycemia E11.65 [facility] [id number] [place] [address] 35352- 6776 March, [facility] [id number] [place] [address] 31649- 5733 March, Lumbago M54.5 [facility] [id number] [place] [address] 66991- 5764 March, [facility] [id number] [place] [address] 68397- 8153 March, Irritable bowel syndrome with diarrhea K58.0 ; Primary insomnia F51.01 ; Type 2 diabetes mellitus with hyperglycemia E11.65 and FDC current use of insulin Z79.4 [place] [address] [place] [address] 59960- 8970 March, [facility] [id number] [place] [address] 12506- 6477 Jan, [facility] [id number] [place] [address] 66142- 7957 Jan, [facility] [id number] [place] [address] 82599- 3752 Jan, [facility] [address] [place] [address] 75873- 2832 Jan, [facility] [id number] [place] [address] 36083- 8440 Jan, Dizziness R42 [facility] [address] [place] [address] 07927- 5844 Jan, Bipolar affective disorder, currently depressed, mild F31.31 ; Panic disorder with agoraphobia F40.01 and Chronic post-traumatic stress disorder (PTSD) F43.12 [place] [address] [place] [address] 45544- 2015 17 Jan, 2018 Dizziness R42 [place] [id number] [place] [address] 11401- 5514 11 Jan, 2018 Chest pain, unspecified type R07.9 ; Exertional dyspnea R06.09 ; Hypertension, unspecified type I10 and Hyperlipidemia, unspecified hyperlipidemia type E78.5 [place] [id number] [place] [address] 92306- 2636 Jan, [place] [address] 12584- 6534 Jan, Lumbago M54.5 [place] [id number] [place] [address] 51677- 1168 04 Jan, 2018 El's esophageal ulceration K22.10 ; Blister (nonthermal ) of oral cavity, initial encounter S00.522A ; Local infection of the skin and subcutaneous tissue, unspecified L08.9 ; Type 2 diabetes mellitus with hyperglycemia E11.65 ; FDC current use of insulin Z79.4 and Stress incontinence N39.3 [facility] [id number] [place] [address] 69267- 4033 27 Dec, 2017 [place] [id number] [place] [address] 69368- 8541 27 Dec, 2017 [place] [id number] [place] [address] 35602- 5553 Dec, [facility] [id number] [place] [address] [id number] 16 Dec, 2017 Dental examination Z01.20 [place] [id number] [place] [address] 90858- 2345 15 Dec, 2017 Acute pain of right knee M25.561 [facility] [id number] [place] [address] 11358- 5114 14 Dec, 2017 [place] [id number] [place] [address] 06011- 0995 14 Dec, 2017 [place] [address] 38146- 5016 Dec, Lumbago M54.5 ; Acute pain of right knee M25.561 and Seasonal allergic rhinitis due to other allergic trigger J30.89 [place] [address] 80969- 9290 Dec, Type 2 diabetes mellitus with hyperglycemia E11.65 [place] [address] 98607- 6502 Dec, [place] [address] 06752- 6440 Dec, [place] [address] 66185- 4441 23 Dec, 2017 [place] [address] 09910- 4457 Dec, [facility] [id number] [place] [address] 99460- 8222 Dec, Chronic post-traumatic stress disorder (PTSD) F43.12 and Panic disorder with agoraphobia F40.01 [place] [id number] [place] [address] 98571- 2547 13 Dec, 2017 Low back pain M54.5 [facility] [id number] [place] [address] 76783- 3272 Dec, Type 2 diabetes mellitus with hyperglycemia E11.65 ; FDC current use of insulin Z79.4 ; Low back pain M54.5 ; Encounter for therapeutic drug level monitoring Z51.81 and Other chronic pain G89.29 [place] [id number] [place] [address] 48323- 2731 09 Dec, 2017 Coughing R05 [place] [address] 28238- 0267 Dec, [facility] [id number] [id number] Dec, Dental examination Z01.20 [place] [address] [address]- 7259 Nov, Type 2 diabetes mellitus without complications E11.9 and Encounter for therapeutic drug level monitoring Z51.81 [place] [id number] [place] [address] 83768- 2826 Nov, [place] [address] [place] [address] 964809- 3831 Oct, Type 2 diabetes mellitus without complications E11.9 [facility] [id number] [place] [address] 469443- 9073 Oct, Type 2 diabetes mellitus with hyperglycemia E11.65 [facility] [id number] [place] [address] 05331- 5092 Aug, Type 2 diabetes mellitus without complications E11.9 [place] [address] [place] [address] 72677- 5264 Aug, Type 2 diabetes mellitus without complications E11.9 ; Hypoglycemia E16.2 ; Lumbago M54.5 ; Stress incontinence of urine N39.3 and History of AR (myocardial infarction) I25.2 [place] [address] [address]- 9314 Jun, [place] [address] [place] [address] 33803- 4341 May, [place] [address] [place] [address] 26193- 4291 Apr, Panic disorder with agoraphobia F40.01 [place] [address] [place] [address] 18933- 3478 08 Apr, 2017 Panic disorder with agoraphobia F40.01 [place] [address] [place] [address] 34469- 3101 Apr, [facility] [address] [address]- 1890 March, Other chronic pain G89.29 [facility] [address] [address]- 8787 March, [facility] [address] [address]- 2668 March, [facility] [address] [address]- 6943 March, [facility] [address] [address]- 6927 March, [facility] [id number] [place] [address] 83652- 4127 March, Type 2 diabetes mellitus without complications E11.9 [facility] [id number] [address]- 7931 March, Diarrhea, unspecified type R19.7 [facility] [address] [address]- 1766 March, Bipolar 2 disorder F31.81 ; Chronic post-traumatic stress disorder (PTSD) F43.12 and Type 2 diabetes mellitus with hyperglycemia E11.65 [facility] [address] [address]- 3103 March, [facility] [address] [address]- 8813 March, [facility] [id number] [address]- 7934 March, Hypertension, benign I10 ; Type 2 diabetes mellitus with hyperglycemia E11.65 ; Hepatitis C B19.20 ; Gastritis and duodenitis K29.90 and Dysuria R30.0 [facility] [id number] [address]- 2759 March, Hypertension, benign I10 ; Type 2 diabetes mellitus with hyperglycemia E11.65 ; Hepatitis C B19.20 ; Gastritis and duodenitis K29.90 and Dysuria R30.0 [place] [id number] [place] [address] 77765- 0584 March, Panic disorder with agoraphobia F40.01 ; Chronic post- traumatic stress disorder (PTSD) F43.12 ; Epilepsy G40.909 and Bipolar I disorder with mood-congruent psychotic features F31.9 [place] [id number] [place] [address] 04168- 1239 March, [place] [id number] [place] [address] 91904- 4426 March, Type 2 diabetes mellitus with hyperglycemia E11.65 [place] [id number] [place] [address] 86063- 1511 18 Jan, 2017 Bipolar I disorder with duy F31.10 [place] [address] 72299- 7611 Jan, Bipolar 2 disorder F31.81 ; Chronic post-traumatic stress disorder (PTSD) F43.12 and Type 2 diabetes mellitus with hyperglycemia E11.65 [place] [id number] [place] [address] 52945- 1272 Jan, [place] [id number] [place] [address] 99521- 0621 17 Jan, 2017 [place] [id number] [place] [address] 28278- 1456 14 Jan, 2017 Panic disorder with agoraphobia F40.01 [facility] [id number] [place] [address] 26076- 7291 13 Jan, 2017 Panic disorder with agoraphobia F40.01 ; Bipolar I disorder with mood-congruent psychotic features F31.9 ; Chronic post-traumatic stress disorder (PTSD) F43.12 and Epilepsy G40.909 [facility] [id number] [place] [address] 91491- 7536 Jan, [facility] [address] [address]- 0674 Jan, [facility] [id number] [place] [address] 83353- 6693 10 Jan, 2017 Type 2 diabetes mellitus without complications E11.9 and Hypoglycemia E16.2 [facility] [id number] [place] [address] 20248- 8905 07 Jan, 2017 Type 2 diabetes mellitus without complications E11.9 ; Primary insomnia F51.01 and Hypertension, benign I10 [facility] [id number] [place] [address] 81274- 8965 Jan, [facility] [address] [id number] Jan, [facility] [id number] [place] [address] 18457- 8462 Dec, Type 2 diabetes mellitus with hyperglycemia E11.65 [place] [id number] [place] [address] 02338- 7360 Dec, [facility] [id number] [place] [address] 85545- 9126 Dec, Bipolar 2 disorder F31.81 ; Panic disorder with agoraphobia F40.01 ; Chronic post-traumatic stress disorder (PTSD) F43.12 and Epilepsy G40.909 [facility] [address] [place] [address] 81347- 3308 Dec, [facility] [id number] [place] [address] 75799- 6901 Dec, [facility] [id number] [place] [address] 65291- 9707 Dec, Bipolar 2 disorder F31.81 ; Panic disorder with agoraphobia F40.01 ; Chronic post-traumatic stress disorder (PTSD) F43.12 and Epilepsy G40.909 [facility] [address] [place] [address] 26729- 1981 Dec, [facility] [id number] [place] [address] 31007- 3395 Dec, [facility] [address] 72490- 2220 Dec, [facility] [address] 85785- 4517 Dec, Type 2 diabetes mellitus with hyperglycemia E11.65 ; FDC current use of insulin Z79.4 and Lumbago M54.5 [place] [address] 71850- 1996 Dec, [place] [address] 84155- 3519 Dec, [place] [address] 07595- 5089 Dec, [facility] [address] 05743 -5350 Dec, Pain of left leg M79.605 and Pain in right leg M79.604 [place] [address] 80724- 6446 Dec, [place] [id number] [place] [address] 41963- 4634 Dec, Type 2 diabetes mellitus with hyperglycemia E11.65 [place] [address] 72106- 2762 Dec, [facility] [id number] [place] [address] 30035- 6324 Dec, Type 2 diabetes mellitus with hyperglycemia E11.65 ; 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 ; Vagina, candidiasis B37.3 and Other chronic pain G89.29 [place] [id number] [place] [address] 29180- 5747 Nov, Panic disorder with agoraphobia F40.01 [place] [address] [address]- 2840 Nov, [facility] [address] [address]- 6619 Nov, [facility] [address] [address]- 6139 Nov, Hypoglycemia E16.2 [facility] [id number] [place] [address] 87632- 1326 Nov, [facility] [address] [place] [address] 03167- 2948 Nov, [facility] [address] [place] [address] 58539- 6703 Nov, [facility] [id number] [place] [address] 58426- 4726 Nov, Type 2 diabetes mellitus with hyperglycemia E11.65 and FDC current use of insulin Z79.4 [facility] [address] [address]- 4960 Nov, Panic disorder with agoraphobia F40.01 ; Bipolar 2 disorder F31.81 ; Chronic post-traumatic stress disorder (PTSD) F43.12 and Epilepsy G40.909 [place] [address] [address]- 8276 Nov, Panic disorder with agoraphobia F40.01 [facility] [address] [address]- 3417 Oct, [facility] [address] [address]- 1191 Oct, [facility] [address] [address]- 6615 Oct, Bipolar 2 disorder F31.81 ; Panic disorder with agoraphobia F40.01 and Mood disorder F39 [facility] [address] [place] [address] 68623- 6349 Oct, Diabetes E11.9 ; Type 2 diabetes mellitus with hyperglycemia E11.65 and 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 [facility] [address] [place] [address] 24806- 6204 Oct, [facility] [address] [place] [address] 69395- 0295 Sep, [facility] [id number] [place] [address] 12060- 6642 Sep, Bipolar 2 disorder F31.81 and Mood disorder F39 [place] [id number] [place] [address] 26885- 5865 Sep, [facility] [id number] [place] [address] 78310- 7934 Sep, Uncontrolled type 2 diabetes mellitus without complication, without long-term current use of insulin E11.65 [facility] [id number] [place] [address] 04925- 2934 Sep, [facility] [address] [place] [address] 20983- 3699 Sep, [facility] [address] [place] [address] 74504- 1659 Sep, [facility] [address] [address]- 8436 Sep, [facility] [address] [place] [address] 73594- 2726 Sep, Bipolar 2 disorder F31.81 ; Chronic post-traumatic stress disorder (PTSD) F43.12 ; Panic disorder with agoraphobia F40.01 and Epilepsy G40.909 [facility] [address] [place] [address] 18417- 3464 Sep, Bipolar 2 disorder F31.81 ; PTSD (post-traumatic stress disorder) F43.10 and Panic disorder with agoraphobia F40.01 [facility] [id number] [address]- 2392 Sep, [facility] [id number] [place] [address] 13968- 3001 Aug, History of seizures Z87.898 ; Panic disorder with agoraphobia F40.01 and Bipolar 2 disorder F31.81 [facility] [id number] [place] [address] 11510- 7932 Aug, [facility] [id number] [place] [address] 64456- 3117 17 Aug, 2016 [facility] [id number] [place] [address] 61191- 2138 Aug, [facility] [id number] [place] [address] 79191- 0047 Aug, [facility] [id number] [place] [address] [phone] Aug, [facility] [id number] [place] [address] [phone]- [phone] Aug, [facility] [id number] [place] [address] [phone]- [phone] Aug, Hypoglycemia E16.2 and Bilateral impacted cerumen H61.23 [facility] [id number] [place] [address] [phone]- [phone] Aug, [facility] [id number] [place] [address] [phone]- [phone] Jul, [facility] [id number] [place] [address] [id number] Jul, [facility] [id number] [place] [address] [id number]- [phone] 15 Jul, 2016 Bipolar 2 disorder F31.81 ; Panic disorder with agoraphobia F40.01 ; PTSD (post-traumatic stress disorder) F43.10 and Epilepsy G40.909 [facility] [id number] [phone] 12 Jul, 2016 [facility] [id number] [place] [address] [id number]- [phone] Jul, Type 2 diabetes mellitus without complications E11.9 and Coughing R05 [facility] [id number] [place] [address] [phone] Jul, [facility] [id number] [place] [address] 95893- 8240 Jun, [facility] [id number] [place] [address] 66252- 0889 Jun, Bipolar 2 disorder F31.81 ; PTSD (post-traumatic stress disorder) F43.10 and Panic disorder with agoraphobia F40.01 [facility] [id number] [place] [address] 48520- 7380 Jun, [facility] [id number] [place] [address] 48447- 2408 Jun, [facility] [id number] [place] [address] 92071- 2467 Jun, [facility] [id number] [place] [address] 15206- 3160 Jun, Type 2 diabetes mellitus without complications E11.9 and COPD (chronic obstructive pulmonary disease) J44.9 [facility] [id number] [place] [address] [id number] May, Dental examination Z01.20 and Dental caries K02.9 [facility] [id number] [place] [address] 97521- 0714 May, Bipolar 2 disorder F31.81 ; PTSD (post-traumatic stress disorder) F43.10 and Panic disorder with agoraphobia F40.01 [facility] [address] [address] May, Lumbago with sciatica, right side M54.41 ; Other chronic pain G89.29 and Uncontrolled type 2 diabetes mellitus without complication, without long-term current use of insulin E11.65 [facility] [id number] [place] [address] 76507- 2313 May, Chronic bronchitis, unspecified chronic bronchitis type J42 [facility] [id number] [place] [address] 29365- 1736 May, [facility] [id number] [place] [address] 36837- 7609 May, [facility] [id number] [place] [address] 13411- 8710 May, Chest pain, unspecified type R07.9 ; Tobacco use Z72.0 ; Type 2 diabetes mellitus without complications E11.9 ; Essential hypertension I10 ; Hyperlipidemia, unspecified hyperlipidemia type E78.5 ; Obesity (BMI 30- 39.9) E66.9 ; History of hypothyroidism Z86.39 ; Chronic obstructive pulmonary disease, unspecified COPD type J44.9 ; Anxiety F41.9 ; Bilateral claudication of lower limb I73.9 and Bipolar 2 disorder F31.81 [facility] [id number] [place] [address] 58306- 0498 May, Bipolar 2 disorder F31.81 ; Panic disorder with agoraphobia F40.01 and Tobacco abuse Z72.0 [facility] [id number] [place] [address] 80975- 1220 Apr, [facility] [id number] [place] [address] 35430- 1057 Apr, [facility] [id number] [place] [address] 83429- 6904 Apr, [facility] [id number] [place] [address] 36700- 4758 Apr, Bipolar 2 disorder F31.81 ; Panic disorder with agoraphobia F40.01 and PTSD (post-traumatic stress disorder) F43.10 [facility] [id number] [place] [address] 70191- 9383 Apr, Chronic bronchitis, unspecified chronic bronchitis type J42 ; Cervical neuritis M54.12 and Thoracic neuritis M54.14 [facility] [id number] [place] [address] 11202- 4960 15 Apr, 2016 [facility] [address] 27031- 1853 15 Apr, 2016 Cervicalgia M54.2 [facility] [address] 70162- 2377 14 Apr, 2016 Bipolar 2 disorder F31.81 ; Panic disorder with agoraphobia F40.01 and PTSD (post-traumatic stress disorder) F43.10 [facility] [place] [id number] [place] [address] 12478 -0466 13 Apr, 2016 [facility] [address] 60583 -7295 09 Apr, 2016 Cough R05 and Tobacco dependence F17.200 [place] [address] 61771- 4365 06 Apr, 2016 [facility] [address] 92265- 7856 Apr, [facility] [id number] [place] [address] 49886- 0971 March, Bipolar 2 disorder F31.81 ; Panic disorder with agoraphobia F40.01 and Generalized anxiety disorder F41.1 [facility] [id number] [place] [address] 02368- 5641 March, Closed displaced fracture of fifth metatarsal bone of right foot with routine healing, subsequent encounter S92.351D [facility] [id number] [place] [address] 84061- 8486 March, Bronchitis J40 [facility] [id number] [place] [address] 28677- 4771 March, [facility] [id number] [place] [address] 12188- 7856 March, [facility] [id number] [place] [address] 90315- 7149 March, Foot pain, right M79.671 ; Cervicalgia M54.2 and 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 mellitus without complication, unspecified 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 insulin use status E11.9 [facility] [address] 48222- 2905 March, Fracture of fifth metatarsal bone of right foot S92.351A [place] [address] 37368- 5204 March, [facility] [address] 99849- 4889 Jan, Fracture of fifth metatarsal bone of right foot S92.351A [place] [address] 51302- 9633 Jan, Bipolar 2 disorder F31.81 ; PTSD (post-traumatic stress disorder) F43.10 ; Panic disorder with agoraphobia F40.01 and Epilepsy G40.909 [id number] [place] [address] 26185- 7712 Jan, History of AR (myocardial infarction) I25.2 and History of high cholesterol Z86.39 [facility] [id number] [place] [address] 51935- 5864 Jan, Bipolar 2 disorder F31.81 ; Panic disorder with agoraphobia F40.01 ; Tobacco abuse Z72.0 and PTSD (post-traumatic stress disorder) F43.10 [facility] [id number] [place] [address] 80953- 8549 Jan, Fracture of fifth metatarsal bone of right foot S92.351A [facility] [id number] [place] [address] 61734- 1852 Jan, [address] [place] [address] 49629- 9038 Jan, History of high cholesterol Z86.39 [facility] [address] 50051- 3521 Jan, History of AR (myocardial infarction) I25.2 [facility] [id number] [place] [address] 28793- 6598 Jan, [facility] [address] 34646- 8571 Dec, Back pain M54.9 ; Diabetes E11.9 ; Right knee pain M25.561 and Chest pain R07.9 [place] [address] 20735- 7421 Dec, [facility] [facility] [address] 18465- 5821 Dec, [facility] [address] 20977- 5397 Dec, Cervicalgia M54.2 [facility] [id number] [place] [address] 42459- 9521 Dec, Bipolar 2 disorder F31.81 ; PTSD (post-traumatic stress disorder) F43.10 ; Panic disorder with agoraphobia F40.01 and Epilepsy G40.909 [facility] [id number] [place] [address] 93660- 0380 Dec, Bipolar 2 disorder F31.81 ; PTSD (post-traumatic stress disorder) F43.10 and Panic disorder with agoraphobia F40.01 [facility] [id number] [place] [address] 05379- 1035 Dec, Diabetes E11.9 [facility] [id number] [place] [address] 94009- 4999 Dec, [facility] [id number] [place] [address] 69832- 8588 Dec, Other chronic pain G89.29 ; Hepatitis C B19.20 and History of seizures Z87.898 [facility] [id number] [place] [address] 13754- 4663 24 Dec, 2015 [facility] [id number] [place] [address] 55015- 8487 Dec, Bipolar 2 disorder F31.81 and Other chronic pain G89.29 [facility] [address] 52786- 5474 Dec, Cervicalgia M54.2 and Diabetes E11.9 [facility] [address] 09201- 1078 Dec, [facility] [address] 40997- 5090 Dec, [facility] [address] 68587- 0538 Dec, [facility] [id number] [place] [address] 97920- 0014 Dec, [facility] [id number] [place] [address] 71986- 8199 Dec, Type 2 diabetes mellitus without complications E11.9 [facility] [id number] [place] [address] 87002- 3124 10 Dec, 2015 [facility] [id number] [place] [address] 26514- 7677 09 Dec, 2015 History of seizures Z87.898 and Hepatitis C B19.20 [facility] [id number] [place] [address] 78441- 4677 08 Dec, 2015 Hepatitis C B19.20 [facility] [id number] [place] [address] 33062- 1545 04 Dec, 2015 [facility] [address] 78667- 3504 04 Dec, 2015 Cervicalgia M54.2 ; COPD (chronic obstructive pulmonary disease) J44.9 and Hepatitis C B19.20 [place] [address] 40698- 4162 Dec, Bipolar 2 disorder F31.81 ; History of hypertension Z86.79 ; History of anxiety Z86.59 ; Panic disorder with agoraphobia F40.01 and Epilepsy G40.909 [facility] [address] 74916- 1765 Nov, [facility] [address] 84080- 3182 Nov, [facility] [address] 08115- 9222 Nov, History of seizures Z87.898 ; OAB (overactive bladder) N32.81 ; Lumbago M54.5 ; Other chronic pain G89.29 ; Cervicalgia M54.2 ; Tobacco abuse Z72.0 ; Tobacco abuse counseling Z71.6 and Impaired fasting glucose R73.01 [place] [address] 69901- 1810 Nov, Bipolar 2 disorder F31.81 ; PTSD (post-traumatic stress disorder) F43.10 ; History of anxiety Z86.59 ; History of COPD Z87.09 ; Panic disorder with agoraphobia F40.01 and Moderate depressed bipolar I disorder F31.32 [facility] [id number] [place] [address] 62158- 9286 12 Nov, 2015 PTSD (post-traumatic stress disorder) F43.10 [facility] [address] [id number] Nov, 2015 Dental examination Z01.20 and Dental caries K02.9 [facility] [id number] [place] [address] 66431- 3412 08 Nov, 2015 History of hypertension Z86.79 ; History of hypothyroidism Z86.39 ; History of high cholesterol Z86.39 ; History of COPD Z87.09 and Overactive bladder N32.81 [facility] [id number] [place] [address] 75943- 1837 Nov, Bipolar 2 disorder F31.81 and PTSD (post-traumatic stress disorder) F43.10 [facility] [id number] [place] [address] 79011- 0891 Nov, PTSD (post-traumatic stress disorder) F43.10 ; Panic disorder with agoraphobia F40.01 ; Epilepsy G40.909 and Moderate depressed bipolar I disorder F31.32 [id number] [place] [address] 47279- 8793 Nov, [facility] [id number] [place] [address] 92319- 8281 Nov, [facility] [id number] [place] [address] 57751- 7420 Oct, [facility] [id number] [place] [address] 31013- 3096 Oct, Generalized anxiety disorder F41.1 ; Major depression, recurrent F33.9 and PTSD (post-traumatic stress disorder) F43.10 [facility] [id number] [place] [address] 56080- 9670 Oct, Elevated fasting glucose R73.01 [facility] [id number] [place] [address] 13025- 1064 Oct, Elevated fasting glucose R73.01 [facility] [id number] [place] [address] 46591- 1069 Oct, History of COPD Z87.09 [facility] [id number] [place] [address] 29185- 6813 15 Oct, 2015 General medical exam Z00.00 ; History of hypertension Z86.79 ; History of hypothyroidism Z86.39 ; History of hepatitis Z86.19 ; History of high cholesterol Z86.39 and History of seizures Z87.898 [facility] [id number] [address]- 4268 10 Oct, 2015 General medical exam Z00.00 ; History of hypertension Z86.79 ; History of hypothyroidism Z86.39 ; Bipolar 2 disorder F31.81 ; PTSD ( post-traumatic stress disorder) F43.10 ; History of hepatitis Z86.19 ; History of high cholesterol Z86.39 ; History of anxiety Z86.59 ; History of seizures Z87.898 ; History of AR (myocardial infarction) I25.2 and History of COPD Z87.09 [facility] [address] [address]- 8082 10 Oct, 2015 Generalized anxiety disorder F41.1 ; Depression F32.9 and PTSD (post-traumatic stress disorder) F43.10 [facility] [address] [address]- 5727 Jan, [facility] [address] [address]- 2932 Jan, [facility] [address] [address]- 1118 Jun, [facility] [address] [place] [id number] Jun, [facility] [id number] [address]- 7163 May, [facility] [id number] [address]- 7587 May, [facility] [address] [place] [id number] May, [facility] [id number] [address]- 1319 May, [facility] [address] [place] [id number] May, [facility] [id number] [address]- 8356 May, IMMUNIZATIONS No Known Immunizations SOCIAL HISTORY Never Assessed REASON FOR VISIT medication PLAN OF CARE VITAL SIGNS MEDICATIONS Medication Instructions Dosage Frequency Start Date End Date Duration Status Mucinex D 60-600 MG Orally Twice a day 1 tablet as needed 12h 09 Dec, 2017 Active RESULTS No Results PROCEDURES [...]
--- OUTSIDE RECORDS SUMMARY | 2019-01-26 07:43 | XMS REPORT ---
Author Author GERARDO KISER [facility] Address [address] [place] [address] Care Team Providers Care Peer Financial Counselor Name Role Phone MARGI GERARDO Unavailable PROBLEMS Type Condition ICD9-CM Code [id number] Code Onset Dates Condition Status SNOMED Code Problem OAB (overactive bladder) N32.81 Active 353290812 Problem Epilepsy G40.909 Active 34441975 Problem Cervicalgia M54.2 Active 99686540 Problem Other chronic pain G89.29 Active 89743427 Problem Tobacco abuse Z72.0 Active 37800028 Problem Lumbago M54.5 Active 238023750 Problem Hepatitis C B19.20 Active 91968310 Problem COPD (chronic obstructive pulmonary disease) J44.9 Active 88275788 Problem Diabetes E11.9 Active 91656099 Problem Bipolar I disorder with duy F31.10 Active 12881502 Problem Type 2 diabetes mellitus without complications E11.9 Active 362451408 Problem Stress incontinence of urine N39.3 Active 25838820 Problem Bilateral claudication of lower limb I73.9 Active 999252498 Problem Seasonal allergic rhinitis due to other allergic trigger J30.89 Active 491026802 Problem Hyperlipidemia, unspecified hyperlipidemia type E78.5 Active 83919480 Problem Hypertension, unspecified type I10 Active 35419606 Problem Chronic tension-type headache, not intractable G44.229 Active 142851956 Problem 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 mellitus without complication, without long -term current use of insulin E11.9 Active 836622085 Problem Type 2 diabetes mellitus with hyperglycemia E11.65 Active 751082913 Problem Chronic post-traumatic stress disorder (PTSD) F43.12 Active 380020449 Problem History of hypothyroidism Z86.39 Active 682522508 Problem Hypoglycemia E16.2 Active 311042717 Problem El's esophageal ulceration K22.10 Active 737311297 Problem Bipolar affective disorder, currently depressed, mild F31.31 Active 881790271 Problem Irritable bowel syndrome with diarrhea K58.0 Active 075254945 Problem Stress incontinence N39.3 Active 64095187 Problem History of hypertension Z86.79 Active 834661085 Problem Uncontrolled type 2 diabetes mellitus without complication, without long-term current use of insulin E11.65 Active 117830495 Problem Panic disorder with agoraphobia F40.01 Active 83155541 Problem Type 2 diabetes mellitus with hyperglycemia E11.65 Active 592513021 Problem History of seizures Z87.898 Active 511467522 Problem halfway current use of insulin Z79.4 Active 701994813 Problem History of SC (myocardial infarction) I25.2 Active 306062595 Problem Mood disorder F39 Active 76719675 Problem Bipolar 2 disorder F31.81 Active 28610816 Problem Gastritis and duodenitis K29.90 Active 995074911 Problem History of high cholesterol Z86.39 Active 225960585 Problem Bipolar I disorder with mood-congruent psychotic features F31.9 Active 118882502 Problem Hypertension, benign I10 Active 04079131 Problem Primary insomnia F51.01 Active 4686267 ALLERGIES No Information ENCOUNTERS Encounter Location Date Diagnosis [facility] [id number] [place] [address] 46358- 6828 May, [facility] [address] 28221- 9993 May, [facility] [address] 07140- 3117 Apr, Abnormal CT of the chest R93.8 [facility] [address] 66815- 9211 Apr, Bipolar 2 disorder F31.81 ; Chronic post-traumatic stress disorder (PTSD) F43.12 and Panic disorder with agoraphobia F40.01 [facility] [id number] [place] [address] 56853- [address] Apr, [address] of the chest R93.8 [facility] [id number] [place] [address] 52556- [address] Apr, [address] of the chest R93.8 [facility] [address] [place] [address]- 6146 14 Apr, 2018 [place] [address] 34083- 9877 Apr, Type 2 diabetes mellitus with hyperglycemia E11.65 [facility] [address] 33784- 8103 Apr, 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 mellitus without complication, without long-term current use of insulin E11.9 ; Watery eyes H04.203 ; Low back pain M54.5 ; Other chronic pain G89.29 ; Chronic tension-type headache, not intractable G44.229 ; Uncontrolled type 2 diabetes mellitus without complication , without long-term current use of insulin E11.65 and Bronchitis J40 [place] [address] 56457- 7892 Apr, [place] [facility] [address] 95668- 8203 Apr, Lumbago M54.5 [facility] [id number] [place] [address] 91868- 1370 March, [facility] [address] 9[address] March, Cough R05 ; Pneumonia due to infectious organism, unspecified laterality, unspecified part of lung J18.9 and Non-intractable vomiting with nausea, unspecified vomiting type R11.2 [facility] [id number] [place] [address] 07668- 1491 March, Bronchitis J40 [facility] [id number] [place] [address] 37189- 2374 March, [place] [facility] [address] 05469- 8372 March, El's esophageal ulceration K22.10 and Type 2 diabetes mellitus with hyperglycemia E11.65 [facility] [id number] [place] [address] 05421- 3977 March, Panic disorder with agoraphobia F40.01 ; Chronic post- traumatic stress disorder (PTSD) F43.12 and Bipolar 2 disorder F31.81 [facility] [id number] [place] [address] 07352- 3227 March, Type 2 diabetes mellitus with hyperglycemia E11.65 [facility] [id number] [place] [address] 11923- 1988 March, [facility] [id number] [place] [address] 12884- 7140 March, Lumbago M54.5 [facility] [id number] [place] [address] 81787- 5674 March, [facility] [id number] [place] [address] 25232- 3870 March, Irritable bowel syndrome with diarrhea K58.0 ; Primary insomnia F51.01 ; Type 2 diabetes mellitus with hyperglycemia E11.65 and halfway current use of insulin Z79.4 [facility] [id number] [place] [address] 77156- 6460 March, [facility] [id number] [place] [address] 65753- 9930 Jan, [facility] [id number] [place] [address] 04000- 5013 Jan, [facility] [id number] [place] [address] 05364- 8750 Jan, [facility] [id number] [place] [address] 75750- 1138 Jan, [facility] [id number] [place] [address] 22018- 0719 Jan, Dizziness R42 [facility] [id number] [place] [address] 47209- 8263 Jan, Bipolar affective disorder, currently depressed, mild F31.31 ; Panic disorder with agoraphobia F40.01 and Chronic post-traumatic stress disorder (PTSD) F43.12 [facility] [address] [place] [address] 00401- 0229 17 Jan, 2018 Dizziness R42 [facility] [id number] [place] [address] 82598- 9969 11 Jan, 2018 Chest pain, unspecified type R07.9 ; Exertional dyspnea R06.09 ; Hypertension, unspecified type I10 and Hyperlipidemia, unspecified hyperlipidemia type E78.5 [facility] [id number] [place] [address] 44262- 9499 Jan, [place] [address] 19681- 2774 Jan, Lumbago M54.5 [facility] [id number] [place] [address] 09129- 8386 04 Jan, 2018 El's esophageal ulceration K22.10 ; Blister (nonthermal ) of oral cavity, initial encounter S00.522A ; Local infection of the skin and subcutaneous tissue, unspecified L08.9 ; Type 2 diabetes mellitus with hyperglycemia E11.65 ; halfway current use of insulin Z79.4 and Stress incontinence N39.3 [facility] [id number] [place] [address] 34958- 5885 27 Dec, 2017 [facility] [id number] [place] [address] 59235- 7548 27 Dec, 2017 [facility] [id number] [place] [address] 27153- 1778 Dec, [facility] [id number] [place] [address] [id number] 16 Dec, 2017 Dental examination Z01.20 [facility] [id number] [place] [address] 08947- 3020 15 Dec, 2017 Acute pain of right knee M25.561 [facility] [id number] [place] [address] 47800- 1279 14 Dec, 2017 [facility] [id number] [place] [address] 72968- 6122 14 Dec, 2017 [place] [address] 27463- 6991 Dec, Lumbago M54.5 ; Acute pain of right knee M25.561 and Seasonal allergic rhinitis due to other allergic trigger J30.89 [place] [address] 68144- 6052 Dec, Type 2 diabetes mellitus with hyperglycemia E11.65 [place] [address] 57593- 2871 Dec, [place] [address] 08422- 2951 Dec, [facility] [address] 96518- 9151 23 Dec, 2017 [place] [address] 91034- 2490 Dec, [facility] [id number] [place] [address] 09065- 5273 Dec, Chronic post-traumatic stress disorder (PTSD) F43.12 and Panic disorder with agoraphobia F40.01 [facility] [id number] [place] [address] 07394- 2927 13 Dec, 2017 Low back pain M54.5 [facility] [id number] [place] [address] 72230- 2328 12 Dec, 2017 Type 2 diabetes mellitus with hyperglycemia E11.65 ; halfway current use of insulin Z79.4 ; Low back pain M54.5 ; Other chronic pain G89.29 and Encounter for therapeutic drug level monitoring Z51.81 [facility] [facility] [id number] [place] [address] 21816- 7105 09 Dec, 2017 Coughing R05 [place] [address] 91511- 1010 Dec, [facility] [id number] [id number] Dec, Dental examination Z01.20 [place] [address] [place] [address]- 1334 Nov, Type 2 diabetes mellitus without complications E11.9 and Encounter for therapeutic drug level monitoring Z51.81 [facility] [id number] [place] [address] 30232- 7084 Nov, [facility] [id number] [place] [address] 092334- 6858 Oct, Type 2 diabetes mellitus without complications E11.9 [facility] [id number] [place] [address] 657831- 9419 Oct, Type 2 diabetes mellitus with hyperglycemia E11.65 [facility] [id number] [place] [address] 74935- 7420 Aug, Type 2 diabetes mellitus without complications E11.9 [facility] [facility] [address] [place] [address] 32639- 7560 Aug, Type 2 diabetes mellitus without complications E11.9 ; Hypoglycemia E16.2 ; Lumbago M54.5 ; Stress incontinence of urine N39.3 and History of SC (myocardial infarction) I25.2 [place] [address] [address]- 5744 Jun, [place] [address] [place] [address] 36344- 2883 May, [place] [address] [place] [address] 04629- 3580 Apr, Panic disorder with agoraphobia F40.01 [place] [address] [place] [address] 91313- 9668 08 Apr, 2017 Panic disorder with agoraphobia F40.01 [place] [address] [place] [address] 18428- 2653 Apr, [facility] [address] [address]- 7129 March, Other chronic pain G89.29 [facility] [address] [address]- 6942 March, [facility] [address] [place] [address]- 5363 March, [facility] [address] [place] [address]- 6312 March, [facility] [address] [address]- 3089 March, [facility] [id number] [place] [address] 37972- 1373 March, Type 2 diabetes mellitus without complications E11.9 [facility] [id number] [address]- 4227 March, Diarrhea, unspecified type R19.7 [facility] [address] [address]- 7808 March, Bipolar 2 disorder F31.81 ; Chronic post-traumatic stress disorder (PTSD) F43.12 and Type 2 diabetes mellitus with hyperglycemia E11.65 [facility] [address] [address]- 5849 March, [facility] [address] [place] [address]- 0324 March, [facility] [id number] [address]- 6006 March, Hypertension, benign I10 ; Type 2 diabetes mellitus with hyperglycemia E11.65 ; Hepatitis C B19.20 ; Gastritis and duodenitis K29.90 and Dysuria R30.0 [facility] [id number] [address]- 8038 March, Hypertension, benign I10 ; Type 2 diabetes mellitus with hyperglycemia E11.65 ; Hepatitis C B19.20 ; Gastritis and duodenitis K29.90 and Dysuria R30.0 [place] [id number] [place] [address] 51133- 2205 March, Panic disorder with agoraphobia F40.01 ; Chronic post- traumatic stress disorder (PTSD) F43.12 ; Epilepsy G40.909 and Bipolar I disorder with mood-congruent psychotic features F31.9 [place] [id number] [place] [address] 07997- 9470 March, [facility] [id number] [place] [address] 57664- 4845 March, Type 2 diabetes mellitus with hyperglycemia E11.65 [facility] [id number] [place] [address] 07315- 0827 18 Jan, 2017 Bipolar I disorder with duy F31.10 [place] [address] 84566- 2538 Jan, Bipolar 2 disorder F31.81 ; Chronic post-traumatic stress disorder (PTSD) F43.12 and Type 2 diabetes mellitus with hyperglycemia E11.65 [facility] [id number] [place] [address] 22585- 8609 Jan, [facility] [id number] [place] [address] 82331- 9469 17 Jan, 2017 [place] [id number] [place] [address] 01482- 7362 14 Jan, 2017 Panic disorder with agoraphobia F40.01 [facility] [id number] [place] [address] 29210- 7223 13 Jan, 2017 Panic disorder with agoraphobia F40.01 ; Bipolar I disorder with mood-congruent psychotic features F31.9 ; Chronic post-traumatic stress disorder (PTSD) F43.12 and Epilepsy G40.909 [facility] [id number] [place] [address] 12196- 1774 Jan, [facility] [address] [address]- 9058 Jan, [facility] [id number] [place] [address] 29124- 3260 10 Jan, 2017 Type 2 diabetes mellitus without complications E11.9 and Hypoglycemia E16.2 [facility] [id number] [place] [address] 16738- 8315 07 Jan, 2017 Type 2 diabetes mellitus without complications E11.9 ; Primary insomnia F51.01 and Hypertension, benign I10 [facility] [id number] [place] [address] 01653- 7382 Jan, [facility] [address] [id number] Jan, [facility] [id number] [place] [address] 04742- 5805 Dec, Type 2 diabetes mellitus with hyperglycemia E11.65 [facility] [facility] [id number] [place] [address] 95571- 8575 Dec, [facility] [id number] [place] [address] 59242- 7278 Dec, Bipolar 2 disorder F31.81 ; Panic disorder with agoraphobia F40.01 ; Chronic post-traumatic stress disorder (PTSD) F43.12 and Epilepsy G40.909 [facility] [address] [place] [address] 29100- 3173 Dec, [facility] [id number] [place] [address] 45822- 9107 Dec, [facility] [id number] [place] [address] 42649- 2425 Dec, Bipolar 2 disorder F31.81 ; Panic disorder with agoraphobia F40.01 ; Chronic post-traumatic stress disorder (PTSD) F43.12 and Epilepsy G40.909 [facility] [id number] [place] [address] 98941- 1535 Dec, [facility] [id number] [place] [address] 81249- 2698 Dec, [facility] [address] 10314- 8806 Dec, [facility] [address] 44156- 0637 Dec, Type 2 diabetes mellitus with hyperglycemia E11.65 ; halfway current use of insulin Z79.4 and Lumbago M54.5 [place] [address] 84693- 9227 Dec, [facility] [facility] [address] 67974- 0259 Dec, [place] [address] 06722- 6719 Dec, [facility] [address] 57786 -0013 Dec, Pain of left leg M79.605 and Pain in right leg M79.604 [place] [address] 50312- 1973 Dec, [facility] [id number] [place] [address] 54608- 3459 Dec, Type 2 diabetes mellitus with hyperglycemia E11.65 [place] [facility] [address] 78832- 2375 Dec, [facility] [id number] [place] [address] 70177- 5948 Dec, Type 2 diabetes mellitus with hyperglycemia E11.65 ; 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 card tender current use of insulin Z79.4 ; Vagina, candidiasis B37.3 and Other chronic pain G89.29 [facility] [facility] [id number] [place] [address] 98909- 0116 Nov, Panic disorder with agoraphobia F40.01 [place] [address], [place] [address]- 6718 Nov, [facility] [address], [place] [address]- 8377 Nov, [facility] [address], [place] [address]- 3890 Nov, Hypoglycemia E16.2 [facility] [id number] [place] [address] 77258- 5870 Nov, [facility] [id number] [place] [address] 82450- 8418 Nov, [facility] [id number] [place] [address] 34837- 5488 Nov, [facility] [id number] [place] [address] 68187- 4688 Nov, Type 2 diabetes mellitus with hyperglycemia E11.65 and halfway current use of insulin Z79.4 [facility] [address], [place] [address]- 3680 Nov, Panic disorder with agoraphobia F40.01 ; Bipolar 2 disorder F31.81 ; Chronic post-traumatic stress disorder (PTSD) F43.12 and Epilepsy G40.909 [facility] [address], [place] [address]- 1576 Nov, Panic disorder with agoraphobia F40.01 [facility] [address], [place] [address]- 1992 Oct, [facility] [address], [place] [address]- 5704 Oct, [facility] [address] [place] [address]- 1987 Oct, Bipolar 2 disorder F31.81 ; Panic disorder with agoraphobia F40.01 and Mood disorder F39 [facility] [id number] [place] [address] 16356- 5761 Oct, Diabetes E11.9 ; Type 2 diabetes mellitus with hyperglycemia E11.65 and 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 card tender current use of insulin Z79.4 [facility] [id number] [place] [address] 75855- 7412 Oct, [facility] [id number] [place] [address] 47572- 9675 Sep, [facility] [id number] [place] [address] 83500- 3169 Sep, Bipolar 2 disorder F31.81 and Mood disorder F39 [facility] [facility] [id number] [place] [address] 03749- 7201 Sep, [facility] [id number] [place] [address] 77911- 5524 Sep, Uncontrolled type 2 diabetes mellitus without complication, without long-term current use of insulin E11.65 [facility] [id number] [place] [address] 11113- 5355 Sep, [facility] [id number] [place] [address] 56531- 4546 Sep, [facility] [id number] [place] [address] 06407- 1637 Sep, [facility] [address], [place] [address]- 5842 Sep, [facility] [id number] [place] [address] 86404- 2888 Sep, Bipolar 2 disorder F31.81 ; Chronic post-traumatic stress disorder (PTSD) F43.12 ; Panic disorder with agoraphobia F40.01 and Epilepsy G40.909 [facility] [address] [place] [address] 98467- 8690 Sep, Bipolar 2 disorder F31.81 ; PTSD (post-traumatic stress disorder) F43.10 and Panic disorder with agoraphobia F40.01 [facility] [id number] [address]- 5364 Sep, [facility] [id number] [place] [address] 51962- 7110 Aug, History of seizures Z87.898 ; Panic disorder with agoraphobia F40.01 and Bipolar 2 disorder F31.81 [facility] [id number] [place] [address] 19542- 4087 Aug, [facility] [id number] [place] [address] 69744- 1689 17 Aug, 2016 [facility] [id number] [place] [address] 84680- 4018 Aug, [facility] [id number] [place] [address] 71273- 2843 Aug, [facility] [id number] [place] [address] 56055- 2582 Aug, [facility] [id number] [place] [address] 58740- 2198 Aug, [facility] [id number] [place] [address] 02378- 0697 Aug, Hypoglycemia E16.2 and Bilateral impacted cerumen H61.23 [facility] [id number] [place] [address] 46724- 6210 Aug, [facility] [id number] [place] [address] [phone] Jul, [facility] [id number] [place] [address] [id number]- [phone] Jul, [facility] [id number] [place] [address] [id number] 15 Jul, 2016 Bipolar 2 disorder F31.81 ; Panic disorder with agoraphobia F40.01 ; PTSD (post-traumatic stress disorder) F43.10 and Epilepsy G40.909 [facility] [address] [id number] [phone] 12 Jul, 2016 [facility] [id number] [place] [address] [phone]- [phone] Jul, Type 2 diabetes mellitus without complications E11.9 and Coughing R05 [facility] [id number] [place] [address] 16070- 1473 Jul, [facility] [id number] [place] [address] [id number]- [id number] Jun, [facility] [id number] [place] [address] 31727- [phone] Jun, Bipolar 2 disorder F31.81 ; PTSD (post-traumatic stress disorder) F43.10 and Panic disorder with agoraphobia F40.01 [facility] [id number] [place] [address] [phone]- [phone] Jun, [facility] [id number] [place] [address] [id number]- [phone] Jun, [facility] [id number] [place] [address] [phone]- [phone] Jun, [facility] [address] [id number] [place] [address] 97107- 8993 Jun, Type 2 diabetes mellitus without complications E11.9 and COPD (chronic obstructive pulmonary disease) J44.9 [facility] [id number] [place] [address] [id number] May, Dental examination Z01.20 and Dental caries K02.9 [facility] [id number] [place] [address] 45761- 2538 May, Bipolar 2 disorder F31.81 ; PTSD (post-traumatic stress disorder) F43.10 and Panic disorder with agoraphobia F40.01 [facility] [address] [address] May, Lumbago with sciatica, right side M54.41 ; Other chronic pain G89.29 and Uncontrolled type 2 diabetes mellitus without complication, without long-term current use of insulin E11.65 [facility] [facility] [address] [place] [id number] [place] [address] 80000- 7223 May, Chronic bronchitis, unspecified chronic bronchitis type J42 [facility] [address] [place] [id number] [place] [address] 68579- 4177 May, [facility] [address] [place] [id number] [place] [address] 47469- 1266 May, [facility] [address] [place] [id number] [place] [address] 57632- 8236 May, Chest pain, unspecified type R07.9 ; Tobacco use Z72.0 ; Type 2 diabetes mellitus without complications E11.9 ; Essential hypertension I10 ; Hyperlipidemia, unspecified hyperlipidemia type E78.5 ; Obesity (BMI 30- 39.9) E66.9 ; History of hypothyroidism Z86.39 ; Chronic obstructive pulmonary disease, unspecified COPD type J44.9 ; Anxiety F41.9 ; Bilateral claudication of lower limb I73.9 and Bipolar 2 disorder F31.81 [facility] [address] [place] [id number] [place] [address] 48846- 1271 May, Bipolar 2 disorder F31.81 ; Panic disorder with agoraphobia F40.01 and Tobacco abuse Z72.0 [facility] [address] [place] [id number] [place] [address] 50931- 7593 Apr, [facility] [address] [place] [id number] [place] [address] 57882- 2587 Apr, [facility] [address] [place] [id number] [place] [address] 02725- 7169 Apr, [facility] [address] [place] [id number] [place] [address] 85706- 8992 Apr, Bipolar 2 disorder F31.81 ; Panic disorder with agoraphobia F40.01 and PTSD (post-traumatic stress disorder) F43.10 [facility] [address] [place] [id number] [place] [address] 27890- 0674 Apr, Chronic bronchitis, unspecified chronic bronchitis type J42 ; Cervical neuritis M54.12 and Thoracic neuritis M54.14 [facility] [address] [place] [id number] [place] [address] 62033- 6131 15 Apr, 2016 [facility] [address] 48436- 9031 15 Apr, 2016 Cervicalgia M54.2 [facility] [address] 03139- 8258 14 Apr, 2016 Bipolar 2 disorder F31.81 ; Panic disorder with agoraphobia F40.01 and PTSD (post-traumatic stress disorder) F43.10 [facility] [place] [address] [place] [id number] [place] [address] 05564 -7603 13 Apr, 2016 [facility] [address] 6[address] -4254 09 Apr, 2016 Cough R05 and Tobacco dependence F17.200 [facility] [address] 97248- 4537 06 Apr, 2016 [facility] [address] 09677- 7750 Apr, [facility] [address] [place] [id number] [place] [address] 04415- 3416 March, Bipolar 2 disorder F31.81 ; Panic disorder with agoraphobia F40.01 and Generalized anxiety disorder F41.1 [facility] [address] [place] [id number] [place] [address] 72490- 4627 March, Closed displaced fracture of fifth metatarsal bone of right foot with routine healing, subsequent encounter S92.351D [facility] [address] [place] [id number] [place] [address] 95216- 1595 March, Bronchitis J40 [facility] [address] [place] [id number] [place] [address] 45236- 2805 March, [facility] [address] [place] [id number] [place] [address] 90401- 3812 March, [facility] [address] [place] [id number] [place] [address] 06357- 3517 March, Foot pain, right M79.671 ; Cervicalgia M54.2 and 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 mellitus without complication, unspecified fci insulin use status E11.9 [facility] [address] 08650- 6864 March, Fracture of fifth metatarsal bone of right foot S92.351A [facility] [address] 45259- 7062 March, [facility] [address] 35846- 5616 Jan, Fracture of fifth metatarsal bone of right foot S92.351A [facility] [address] 62535- 7383 Jan, Bipolar 2 disorder F31.81 ; PTSD (post-traumatic stress disorder) F43.10 ; Panic disorder with agoraphobia F40.01 and Epilepsy G40.909 [place] [id number] [place] [address] 36614- 1183 Jan, History of SC (myocardial infarction) I25.2 and History of high cholesterol Z86.39 [facility] [address] [place] [id number] [place] [address] 15188- 6395 Jan, Bipolar 2 disorder F31.81 ; Panic disorder with agoraphobia F40.01 ; Tobacco abuse Z72.0 and PTSD (post-traumatic stress disorder) F43.10 [facility] [address] [place] [id number] [place] [address] 13696- 6072 Jan, Fracture of fifth metatarsal bone of right foot S92.351A [facility] [address] [place] [id number] [place] [address] 22706- 0591 Jan, [id number] [place] [address] 47251- 5935 Jan, History of high cholesterol Z86.39 [facility] [address] 69808- 0157 Jan, History of SC (myocardial infarction) I25.2 [facility] [address] [place] [id number] [place] [address] 42924- 9230 Jan, [facility] [place] [address] 56523- 9744 Dec, Back pain M54.9 ; Diabetes E11.9 ; Right knee pain M25.561 and Chest pain R07.9 [facility] [address] 46344- 4125 Dec, [facility] [address] 83497- 2638 Dec, [facility] [address] 10729- 3639 Dec, Cervicalgia M54.2 [facility] [address] [place] [id number] [place] [address] 44877- 6435 Dec, Bipolar 2 disorder F31.81 ; PTSD (post-traumatic stress disorder) F43.10 ; Panic disorder with agoraphobia F40.01 and Epilepsy G40.909 [facility] [address] [place] [id number] [place] [address] 07893- 1599 Dec, Bipolar 2 disorder F31.81 ; PTSD (post-traumatic stress disorder) F43.10 and Panic disorder with agoraphobia F40.01 [facility] [place] [address] [place] [id number] [place] [address] 99440- 4544 Dec, Diabetes E11.9 [facility] [address] [place] [id number] [place] [address] 43261- 2321 Dec, [facility] [address] [place] [id number] [place] [address] 10868- 5359 Dec, Other chronic pain G89.29 ; Hepatitis C B19.20 and History of seizures Z87.898 [facility] [address] [place] [id number] [place] [address] 11363- 5518 24 Dec, 2015 [facility] [address] [id number] [place] [address] 45980- 5285 Dec, Bipolar 2 disorder F31.81 and Other chronic pain G89.29 [facility] [address] 19333- 6229 Dec, Cervicalgia M54.2 and Diabetes E11.9 [facility] [address] 74682- 7424 Dec, [facility] [address] 41176- 6798 Dec, [facility] [address] 09127- 9134 Dec, [facility] [address] [place] [id number] [place] [address] 04290- 4052 Dec, [facility] [address] [place] [id number] [place] [address] 98389- 8594 Dec, Type 2 diabetes mellitus without complications E11.9 [facility] [address] [place] [id number] [place] [address] 05941- 0269 10 Dec, 2015 [facility] [id number] [place] [address] 31667- 9299 09 Dec, 2015 History of seizures Z87.898 and Hepatitis C B19.20 [facility] [address] [place] [id number] [place] [address] 25119- 7669 08 Dec, 2015 Hepatitis C B19.20 [facility] [address] [id number] [place] [address] 38771- 2652 04 Dec, 2015 [facility] [address] 88429- 8520 04 Dec, 2015 Cervicalgia M54.2 ; COPD (chronic obstructive pulmonary disease) J44.9 and Hepatitis C B19.20 [facility] [address] 92673- 0646 Dec, Bipolar 2 disorder F31.81 ; History of hypertension Z86.79 ; History of anxiety Z86.59 ; Panic disorder with agoraphobia F40.01 and Epilepsy G40.909 [facility] [address] 76137- 2229 Nov, [facility] [place] [address] 03878- 7703 Nov, [facility] [address] 38204- 8571 Nov, History of seizures Z87.898 ; OAB (overactive bladder) N32.81 ; Lumbago M54.5 ; Other chronic pain G89.29 ; Cervicalgia M54.2 ; Tobacco abuse Z72.0 ; Tobacco abuse counseling Z71.6 and Impaired fasting glucose R73.01 [facility] [address] 53924- 2096 Nov, Bipolar 2 disorder F31.81 ; PTSD (post-traumatic stress disorder) F43.10 ; History of anxiety Z86.59 ; History of COPD Z87.09 ; Panic disorder with agoraphobia F40.01 and Moderate depressed bipolar I disorder F31.32 [facility] [address] [place] [id number] [place] [address] 02284- 0618 12 Nov, 2015 PTSD (post-traumatic stress disorder) F43.10 [facility] [address] [id number] 11 Nov, 2015 Dental examination Z01.20 and Dental caries K02.9 [facility] [address] [place] [id number] [place] [address] 15421- 5465 08 Nov, 2015 History of hypertension Z86.79 ; History of hypothyroidism Z86.39 ; History of high cholesterol Z86.39 ; History of COPD Z87.09 and Overactive bladder N32.81 [facility] [address] [place] [id number] [place] [address] 07768- 5606 Nov, Bipolar 2 disorder F31.81 and PTSD (post-traumatic stress disorder) F43.10 [facility] [address] [place] [id number] [place] [address] 35319- 5694 Nov, PTSD (post-traumatic stress disorder) F43.10 ; Panic disorder with agoraphobia F40.01 ; Epilepsy G40.909 and Moderate depressed bipolar I disorder F31.32 [place] [id number] [place] [address] 85980- 8119 Nov, [facility] [address] [place] [id number] [place] [address] 96659- 9562 Nov, [facility] [address] [place] [id number] [place] [address] 97448- 0446 Oct, [facility] [address] [place] [id number] [place] [address] 28780- 4264 Oct, Generalized anxiety disorder F41.1 ; Major depression, recurrent F33.9 and PTSD (post-traumatic stress disorder) F43.10 [facility] [address] [place] [id number] [place] [address] 59419- 9315 Oct, Elevated fasting glucose R73.01 [facility] [address] [place] [id number] [place] [address] 01841- 8570 Oct, Elevated fasting glucose R73.01 [facility] [address] [place] [id number] [place] [address] 37822- 4826 Oct, History of COPD Z87.09 [facility] [address] [place] [id number] [place] [address] 78612- 4364 15 Oct, 2015 General medical exam Z00.00 ; History of hypertension Z86.79 ; History of hypothyroidism Z86.39 ; History of hepatitis Z86.19 ; History of high cholesterol Z86.39 and History of seizures Z87.898 [facility] [address] [id number] [address]- 1438 10 Oct, 2015 General medical exam Z00.00 ; History of hypertension Z86.79 ; History of hypothyroidism Z86.39 ; Bipolar 2 disorder F31.81 ; PTSD ( post-traumatic stress disorder) F43.10 ; History of hepatitis Z86.19 ; History of high cholesterol Z86.39 ; History of anxiety Z86.59 ; History of seizures Z87.898 ; History of SC (myocardial infarction) I25.2 and History of COPD Z87.09 [facility] [address], [place] [address]- 1789 10 Oct, 2015 Generalized anxiety disorder F41.1 ; Depression F32.9 and PTSD (post-traumatic stress disorder) F43.10 [facility] [address] [address]- 2876 Jan, [facility] [address] [address]- 1251 Jan, [facility] [address], [place] [address]- 3547 Jun, [facility] [address] [place] [id number] Jun, [facility] [id number] [address]- 3730 May, [facility] [address] [id number] [address]- 3418 May, [facility] [address] [place] [id number] May, [facility] [address] [id number] [address]- 2421 May, [facility] [address] [place] [id number] May, [facility] [address] [id number] [address]- 2866 May, IMMUNIZATIONS No Known Immunizations SOCIAL HISTORY Never Assessed REASON FOR VISIT Controlled Med Refill Request PLAN OF CARE VITAL SIGNS MEDICATIONS Medication Instructions Dosage Frequency Start Date End Date Duration Status Rugby 10-325 MG Orally 3 times a day 1 tablet as needed 8h Nov, 14 days Active Xanax 2 MG Orally 2 times a day 1 tablet 12h 14 days Active RESULTS No Results PROCEDURES No Known procedures INSTRUCTIONS MEDICATIONS ADMINISTERED No Known Medications MEDICAL (GENERAL) HISTORY Type Description Date Medical History Hypothyroidism Medical History High cholesterol Medical History Hypertension Medical History Brain seizure Medical History Asthma Medical History COPD Medical History Hep C -2004 Medical History SC x 2 last in [...]
[2019-01-26] MEDS ORDERED: SEVOFLURANE (ULTANE) 15 ML INHAL SOLN ONE ×2 (07:44→07:45)
--- OUTSIDE RECORDS SUMMARY | 2019-01-26 07:46 | XMS REPORT ---
Author Author GERARDO KISER [facility] Address [address] [place] [address] Care Team Providers Care Snailer Name Role Phone MARGI GERARDO Unavailable PROBLEMS Type Condition ICD9-CM Code [id number] Code Onset Dates Condition Status SNOMED Code Problem OAB (overactive bladder) N32.81 Active 290151314 Problem Epilepsy G40.909 Active 83048690 Problem Cervicalgia M54.2 Active 69002616 Problem Other chronic pain G89.29 Active 32881756 Problem Tobacco abuse Z72.0 Active 15102956 Problem Lumbago M54.5 Active 339006334 Problem Hepatitis C B19.20 Active 78489866 Problem COPD (chronic obstructive pulmonary disease) J44.9 Active 81806932 Problem Diabetes E11.9 Active 74034901 Problem Bipolar I disorder with duy F31.10 Active 59376354 Problem Type 2 diabetes mellitus without complications E11.9 Active 431990312 Problem Stress incontinence of urine N39.3 Active 59878100 Problem Bilateral claudication of lower limb I73.9 Active 891832037 Problem Seasonal allergic rhinitis due to other allergic trigger J30.89 Active 836014772 Problem Hyperlipidemia, unspecified hyperlipidemia type E78.5 Active 60870460 Problem Hypertension, unspecified type I10 Active 82872829 Problem Chronic tension-type headache, not intractable G44.229 Active 042608131 Problem 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 mellitus without complication, without long -term current use of insulin E11.9 Active 918088715 Problem Type 2 diabetes mellitus with hyperglycemia E11.65 Active 935923422 Problem Chronic post-traumatic stress disorder (PTSD) F43.12 Active 479892930 Problem History of hypothyroidism Z86.39 Active 489107378 Problem Hypoglycemia E16.2 Active 804822397 Problem El's esophageal ulceration K22.10 Active 684566627 Problem Bipolar affective disorder, currently depressed, mild F31.31 Active 981679500 Problem Irritable bowel syndrome with diarrhea K58.0 Active 579801028 Problem Stress incontinence N39.3 Active 45992625 Problem History of hypertension Z86.79 Active 343857994 Problem Uncontrolled type 2 diabetes mellitus without complication, without long-term current use of insulin E11.65 Active 724821859 Problem Panic disorder with agoraphobia F40.01 Active 91521848 Problem Type 2 diabetes mellitus with hyperglycemia E11.65 Active 820101126 Problem History of seizures Z87.898 Active 812522371 Problem MCFP current use of insulin Z79.4 Active 951849360 Problem History of [place] (myocardial infarction) I25.2 Active 965641970 Problem Mood disorder F39 Active 33277943 Problem Bipolar 2 disorder F31.81 Active 38467667 Problem Gastritis and duodenitis K29.90 Active 388783604 Problem History of high cholesterol Z86.39 Active 158537188 Problem Bipolar I disorder with mood-congruent psychotic features F31.9 Active 138355111 Problem Hypertension, benign I10 Active 88725043 Problem Primary insomnia F51.01 Active 4534642 ALLERGIES No Information ENCOUNTERS Encounter Location Date Diagnosis [place] [address] [address]80 27 Apr, 2018 [place] [address] 52854- 7006 Apr, [place] [address] 97121- 1081 Apr, Type 2 diabetes mellitus with hyperglycemia E11.65 [place] [address] 64772- 3907 11 Apr, 2018 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 mellitus without complication, without long-term current use of insulin E11.9 ; Watery eyes H04.203 ; Low back pain M54.5 ; Other chronic pain G89.29 ; Chronic tension-type headache, not intractable G44.229 ; Uncontrolled type 2 diabetes mellitus without complication , without long-term current use of insulin E11.65 and Bronchitis J40 [place] [address] [place] [id number] [place] [address] 10606- 1809 06 Apr, 2018 [place] [address] 21523- 9054 Apr, Lumbago M54.5 [facility] [id number] [place] [address] 69428- 6643 March, [facility] [id number] [place] [address] 54074 -9353 March, Cough R05 ; Pneumonia due to infectious organism, unspecified laterality, unspecified part of lung J18.9 and Non-intractable vomiting with nausea, unspecified vomiting type R11.2 [facility] [id number] [place] [address] 89957- 3217 March, Bronchitis J40 [place] [address] [place] [id number] [place] [address] 29846- 2493 March, [place] [address] [place] [id number] [place] [address] 31685- 8406 March, El's esophageal ulceration K22.10 and Type 2 diabetes mellitus with hyperglycemia E11.65 [facility] [address] [place] [address] 69854- 1007 March, Panic disorder with agoraphobia F40.01 ; Chronic post- traumatic stress disorder (PTSD) F43.12 and Bipolar 2 disorder F31.81 [facility] [id number] [place] [address] 75208- 8054 March, Type 2 diabetes mellitus with hyperglycemia E11.65 [facility] [id number] [place] [address] 35878- 2826 March, [facility] [id number] [place] [address] 47986- 6201 March, Lumbago M54.5 [facility] [id number] [place] [address] 82391- 4254 March, [facility] [id number] [place] [address] 23761- 9317 March, Irritable bowel syndrome with diarrhea K58.0 ; Primary insomnia F51.01 ; Type 2 diabetes mellitus with hyperglycemia E11.65 and 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 [place] [address] [place] [id number] [place] [address] 37576- 3815 March, [facility] [address] [place] [id number] [place] [address] 78551- 6844 Jan, [facility] [address] [place] [id number] [place] [address] 46414- 9924 Jan, [facility] [address] [place] [id number] [place] [address] 66373- 5324 Jan, [place] [address] 86079- 0566 Jan, [place] [address] [place] [id number] [place] [address] 06191- 4373 Jan, Dizziness R42 [place] [address] [place] [id number] [place] [address] 60865- 5307 Jan, Bipolar affective disorder, currently depressed, mild F31.31 ; Panic disorder with agoraphobia F40.01 and Chronic post-traumatic stress disorder (PTSD) F43.12 [place] [address] [place] [id number] [place] [address] 01877- 7426 Jan, Dizziness R42 [place] [address] [place] [id number] [place] [address] 18779- 1889 Jan, Chest pain, unspecified type R07.9 ; Exertional dyspnea R06.09 ; Hypertension, unspecified type I10 and Hyperlipidemia, unspecified hyperlipidemia type E78.5 [place] [address] [place] [id number] [place] [address] 56058- 7375 Jan, [place] [address] [place] [id number] [place] [address] 46719- 9257 Jan, Lumbago M54.5 [place] [address] [place] [id number] [place] [address] 25150- 8545 Jan, El's esophageal ulceration K22.10 ; Blister (nonthermal ) of oral cavity, initial encounter S00.522A ; Local infection of the skin and subcutaneous tissue, unspecified L08.9 ; Type 2 diabetes mellitus with hyperglycemia E11.65 ; 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 and Stress incontinence N39.3 [facility] [address] [place] [id number] [place] [address] 80689- 5489 27 Dec, 2017 [facility] [address] 29063- 1246 27 Dec, 2017 [place] [address] [place] [id number] [place] [address] 56929- 9369 19 Dec, 2017 [facility] [address] [place] [id number] [place] [address] [phone] 16 Dec, 2017 Dental examination Z01.20 [place] [address] [place] [id number] [place] [address] 53993- 8823 15 Dec, 2017 Acute pain of right knee M25.561 [place] [address] [place] [id number] [place] [address] 54047- 7660 14 Dec, 2017 [place] [address] [place] [id number] [place] [address] 83170- 8263 14 Dec, 2017 [place] [address] [place] [id number] [place] [address] 02283- 3960 14 Dec, 2017 Lumbago M54.5 ; Acute pain of right knee M25.561 and Seasonal allergic rhinitis due to other allergic trigger J30.89 [facility] [address] [place] [id number] [place] [address] 97109- 4556 12 Dec, 2017 Type 2 diabetes mellitus with hyperglycemia E11.65 [place] [address] 11338- 5614 Dec, [facility] [address] [place] [id number] [place] [address] 49523- 1847 Dec, [facility] [address] [place] [id number] [place] [address] 96930- 0934 Dec, [facility] [id number] [place] [address] 63306- 5399 Dec, [facility] [address] [place] [id number] [place] [address] 00628- 0037 Dec, Chronic post-traumatic stress disorder (PTSD) F43.12 and Panic disorder with agoraphobia F40.01 [facility] [address] [place] [id number] [place] [address] 89215- 2797 13 Dec, 2017 Low back pain M54.5 [facility] [address] [place] [id number] [place] [address] 61940- 4173 12 Dec, 2017 Type 2 diabetes mellitus with hyperglycemia E11.65 ; [facility]FP current use of insulin Z79.4 ; Low back pain M54.5 ; Other chronic pain G89.29 and Encounter for therapeutic drug level monitoring Z51.81 [facility] [address] [place] [id number] [place] [address] 17332- 9626 09 Dec, 2017 Coughing R05 [facility] [address] [place] [id number] [place] [address] 60173- 4290 09 Dec, 2017 [facility] [address] [place] [id number] [place] [address] [phone] 07 Dec, 2017 Dental examination Z01.20 [facility] [address] [place] [id number] [place] [address] 47632- 2428 Nov, Type 2 diabetes mellitus without complications E11.9 and Encounter for therapeutic drug level monitoring Z51.81 [facility] [id number] [place] [address] 02835- 4926 Nov, [facility] [address] [place] [id number] [place] [address] 70418- 9868 Oct, Type 2 diabetes mellitus without complications E11.9 [facility] [id number] [place] [address] 74604- 7368 Oct, Type 2 diabetes mellitus with hyperglycemia E11.65 [facility] [address] [place] [id number] [address]- 6627 Aug, Type 2 diabetes mellitus without complications E11.9 [facility] [address] [place] [id number] [place] [address] 28838- 2711 Aug, Type 2 diabetes mellitus without complications E11.9 ; Hypoglycemia E16.2 ; Lumbago M54.5 ; Stress incontinence of urine N39.3 and History of [place] (myocardial infarction) I25.2 [facility] [address] [place] [id number] [place] [address] 47116- 3109 Jun, [facility] [address] [place] [id number] [place] [address] 35527- 4312 May, [facility] [address] [place] [id number] [place] [address] 21566- 2324 Apr, Panic disorder with agoraphobia F40.01 [facility] [address] [place] [id number] [place] [address] 61240- 9019 Apr, Panic disorder with agoraphobia F40.01 [facility] [address] [place] [id number] [address]- 7045 Apr, [facility] [address] [place] [id number] [place] [address] 19844- 8202 March, Other chronic pain G89.29 [facility] [address] [place] [id number] [address]- 9517 March, [facility] [address] [place] [id number] [address]- 4905 March, [facility] [address] [address]- 8051 March, [facility] [address] [place] [id number] [place] [address] 53537- 3265 March, [facility] [address] [address]- 3147 March, Type 2 diabetes mellitus without complications E11.9 [facility] [id number] [place] [address] 28300- 0144 March, Diarrhea, unspecified type R19.7 [place] [address] [place] [id number] [place] [address] 33735- 4572 March, Bipolar 2 disorder F31.81 ; Chronic post-traumatic stress disorder (PTSD) F43.12 and Type 2 diabetes mellitus with hyperglycemia E11.65 [place] [address] [place] [id number] [place] [address] 13241- 3030 March, [place] [address] [place] [id number] [place] [address] 87101- 8778 March, [place] [address] [place] [id number] [place] [address] 63914- 3029 March, Hypertension, benign I10 ; Type 2 diabetes mellitus with hyperglycemia E11.65 ; Hepatitis C B19.20 ; Gastritis and duodenitis K29.90 and Dysuria R30.0 [place] [address] [place] [id number] [place] [address] 67622- 3179 March, Hypertension, benign I10 ; Type 2 diabetes mellitus with hyperglycemia E11.65 ; Hepatitis C B19.20 ; Gastritis and duodenitis K29.90 and Dysuria R30.0 [place] [address] [place] [address] 25663- 4536 March, Panic disorder with agoraphobia F40.01 ; Chronic post- traumatic stress disorder (PTSD) F43.12 ; Epilepsy G40.909 and Bipolar I disorder with mood-congruent psychotic features F31.9 [place] [id number] [place] [address] 60819- 4346 March, [place] [id number] [place] [address] 39579- 1932 March, Type 2 diabetes mellitus with hyperglycemia E11.65 [place] [address] [place] [id number] [place] [address] 83964- 8229 Jan, Bipolar I disorder with duy F31.[id number] [place] [address] 88838- 3351 17 Jan, 2017 Bipolar 2 disorder F31.81 ; Chronic post-traumatic stress disorder (PTSD) F43.12 and Type 2 diabetes mellitus with hyperglycemia E11.65 [facility] [address] [place] [id number] [place] [address] 27813- 3087 Jan, [facility] [address] [place] [id number] [place] [address] 24270- 0814 Jan, [facility] [address] [place] [id number] [place] [address] 57426- 9303 14 Jan, 2017 Panic disorder with agoraphobia F40.01 [place] [address] [place] [id number] [place] [address] 28376- 0253 13 Jan, 2017 Panic disorder with agoraphobia F40.01 ; Bipolar I disorder with mood-congruent psychotic features F31.9 ; Chronic post-traumatic stress disorder (PTSD) F43.12 and Epilepsy G40.909 [place] [address] [place] [id number] [place] [address] 48396- 6233 Jan, [place] [address] [place] [id number] [place] [address] 65742- 1510 Jan, [place] [address] [place] [id number] [place] [address] 98874- 7905 Jan, Type 2 diabetes mellitus without complications E11.9 and Hypoglycemia E16.2 [place] [id number] [place] [address] 20740- 9906 Jan, Type 2 diabetes mellitus without complications E11.9 ; Primary insomnia F51.01 and Hypertension, benign I10 [place] [address] [place] [id number] [place] [address] 42055- 8651 Jan, [facility] [address] [place] [id number] [place] [address] [id number] Jan, [facility] [address] [place] [id number] [place] [address] 09002- 2670 Dec, Type 2 diabetes mellitus with hyperglycemia E11.65 [facility] [id number] [place] [address] 43156- 4774 Dec, [facility] [address] [place] [id number] [place] [address] 62311- 1585 Dec, Bipolar 2 disorder F31.81 ; Panic disorder with agoraphobia F40.01 ; Chronic post-traumatic stress disorder (PTSD) F43.12 and Epilepsy G40.909 [facility] [address] [place] [id number] [place] [address] 61329- 4475 Dec, [facility] [address] [place] [id number] [place] [address] 10448- 4419 Dec, [facility] [address] [place] [id number] [place] [address] 94224- 0573 Dec, Bipolar 2 disorder F31.81 ; Panic disorder with agoraphobia F40.01 ; Chronic post-traumatic stress disorder (PTSD) F43.12 and Epilepsy G40.909 [facility] [address] [place] [id number] [place] [address] 71610- 5295 Dec, [facility] [address] [place] [id number] [place] [address] 85394- 9083 Dec, [facility] [address] [place] [id number] [place] [address] 06662- 3090 Dec, [facility] [address] [place] [id number] [place] [address] 32621- 0400 Dec, Type 2 diabetes mellitus with hyperglycemia E11.65 ; 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 and Lumbago M54.5 [facility] [address] [place] [id number] [place] [address] 13645- 7453 Dec, [facility] [address] [place] [id number] [place] [address] 21576- 2089 Dec, [facility] [address] [place] [id number] [place] [address] 45986- 8751 Dec, [facility] [id number] [place] [address] 65987 -0627 Dec, Pain of left leg M79.605 and Pain in right leg M79.604 [facility] [address] [place] [id number] [place] [address] 22222- 9131 14 Dec, 2016 [place] [address] 04696- 7440 08 Dec, 2016 Type 2 diabetes mellitus with hyperglycemia E11.65 [place] [address] [place] [id number] [place] [address] 14500- 3832 06 Dec, 2016 [place] [address] 36540- 6901 03 Dec, 2016 Type 2 diabetes mellitus with hyperglycemia E11.65 ; 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 ; Vagina, candidiasis B37.3 and Other chronic pain G89.29 [place] [address] [place] [id number] [place] [address] 65733- 5219 Nov, Panic disorder with agoraphobia F40.[address] 28059- 3305 Nov, [place] [address] [place] [id number] [place] [address] 54788- 9858 Nov, [place] [address] [place] [id number] [place] [address] 92631- 4218 Nov, Hypoglycemia E16.2 [place] [address] [place] [id number] [place] [address] 82883- 8464 Nov, [address] 63180- 4748 Nov, [place] [address] [place] [id number] [place] [address] 69391- 4707 Nov, [place] [address] 67565- 9826 Nov, Type 2 diabetes mellitus with hyperglycemia E11.65 and 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 [place] [id number] [place] [address] 54675- 0498 Nov, Panic disorder with agoraphobia F40.01 ; Bipolar 2 disorder F31.81 ; Chronic post-traumatic stress disorder (PTSD) F43.12 and Epilepsy G40.909 [place] [address] [place] [id number] [place] [address] 29379- 3222 Nov, Panic disorder with agoraphobia F40.01 [place] [address] [place] [id number] [place] [address] 77925- 1847 Oct, [place] [address] [place] [id number] [place] [address] 91342- 1876 Oct, [place] [address] [place] [id number] [place] [address] 03054- 8710 Oct, Bipolar 2 disorder F31.81 ; Panic disorder with agoraphobia F40.01 and Mood disorder F39 [place] [address] [place] [id number] [place] [address] 42010- 9938 Oct, Diabetes E11.9 ; Type 2 diabetes mellitus with hyperglycemia E11.65 and [facility]FP current use of insulin Z79.4 [place] [id number] [place] [address] 86859- 6766 Oct, [place] [address] [place] [id number] [place] [address] 56546- 7812 Sep, [facility] [address] [place] [id number] [place] [address] 05231- 9393 Sep, Bipolar 2 disorder F31.81 and Mood disorder F39 [place] [address] [place] [id number] [place] [address] 26459- 9868 Sep, [place] [id number] [place] [address] 05190- 1687 Sep, Uncontrolled type 2 diabetes mellitus without complication, without long-term current use of insulin E11.65 [facility] [address] [address]- 6562 Sep, [facility] [address] [place] [id number] [place] [address] 90328- 1206 Sep, [facility] [address] [place] [id number] [place] [address] 25932- 4098 Sep, [facility] [address] [place] [id number] [place] [address] 76507- 2518 Sep, [facility] [address] [place] [id number] [place] [address] 26074- 5098 Sep, Bipolar 2 disorder F31.81 ; Chronic post-traumatic stress disorder (PTSD) F43.12 ; Panic disorder with agoraphobia F40.01 and Epilepsy G40.909 [facility] [address] [place] [id number] [place] [address] 67232- 1853 Sep, Bipolar 2 disorder F31.81 ; PTSD (post-traumatic stress disorder) F43.10 and Panic disorder with agoraphobia F40.01 [facility] [id number] [place] [address] 74550- 8641 Sep, [facility] [id number] [address]- 7816 28 Aug, 2016 History of seizures Z87.898 ; Panic disorder with agoraphobia F40.01 and Bipolar 2 disorder F31.81 [facility] [address] [address]- 8560 Aug, [facility] [id number] [place] [address] 39058- 4013 17 Aug, 2016 [facility] [address] [place] [id number] [place] [phone] Aug, [facility] [id number] [address] Aug, [facility] [id number] [place] [address] Aug, [facility] [address] [address] Aug, [facility] [address] [address] Aug, Hypoglycemia E16.2 and Bilateral impacted cerumen H61.23 [facility] [address] [address] Aug, [facility] [address] [address] Jul, [facility] [address] [address] [address]- [address] Jul, [facility] [address] 02[address]- 2893 15 Jul, 2016 Bipolar 2 disorder F31.81 ; Panic disorder with agoraphobia F40.01 ; PTSD (post-traumatic stress disorder) F43.10 and Epilepsy G40.909 [place] [address] 67[address]- [address] Jul, [facility] [address] [place] [id number] [place] [address] 01266- 3714 Jul, Type 2 diabetes mellitus without complications E11.9 and Coughing R05 [facility] [address] [place] [address] [id number] [place] [address] 93577- 9845 Jul, [facility] [address] [id number] [place] [address] 00796- 0856 Jun, [facility] [address] [id number] [place] [address] 12549- 5336 Jun, Bipolar 2 disorder F31.81 ; PTSD (post-traumatic stress disorder) F43.10 and Panic disorder with agoraphobia F40.01 [facility] [address] [id number] [place] [address] 42311- 8066 Jun, [place] [id number] [place] [address] 23383- 6804 Jun, [place] [address] [id number] [place] [address] 83682- 3063 Jun, [place] [address] [id number] [place] [address] 84349- 0184 Jun, Type 2 diabetes mellitus without complications E11.9 and COPD (chronic obstructive pulmonary disease) J44.9 [facility] [id number] [place] [address] [id number] May, Dental examination Z01.20 and Dental caries K02.9 [place] [address] [id number] [place] [address] 10916- 8994 May, Bipolar 2 disorder F31.81 ; PTSD (post-traumatic stress disorder) F43.10 and Panic disorder with agoraphobia F40.01 [place] [address] [id number] [place] [address] 43826- 4625 May, Lumbago with sciatica, right side M54.41 ; Other chronic pain G89.29 and Uncontrolled type 2 diabetes mellitus without complication, without long-term current use of insulin E11.65 [place] [address] [place] [id number] [place] [address] 89314- 1011 May, Chronic bronchitis, unspecified chronic bronchitis type J42 [place] [address] [place] [id number] [place] [address] 14181- 8964 May, [place] [address] [address] [id number] [place] [address] 13616- 2896 May, [place] [address] [id number] [place] [address] 10169- 7345 May, Chest pain, unspecified type R07.9 ; Tobacco use Z72.0 ; Type 2 diabetes mellitus without complications E11.9 ; Essential hypertension I10 ; Hyperlipidemia, unspecified hyperlipidemia type E78.5 ; Obesity (BMI 30- 39.9) E66.9 ; History of hypothyroidism Z86.39 ; Chronic obstructive pulmonary disease, unspecified COPD type J44.9 ; Anxiety F41.9 ; Bilateral claudication of lower limb I73.9 and Bipolar 2 disorder F31.81 [place] [id number] [place] [address] 76108- 2976 05 May, 2016 Bipolar 2 disorder F31.81 ; Panic disorder with agoraphobia F40.01 and Tobacco abuse Z72.0 [place] [address] [address] [id number] [place] [address] 93729- 0071 Apr, [place] [address] [id number] [place] [address] 69133- 8856 Apr, [place] [address] [address] [id number] [place] [address] 58728- 0470 Apr, [place] [id number] [place] [address] 14438- 0301 Apr, Bipolar 2 disorder F31.81 ; Panic disorder with agoraphobia F40.01 and PTSD (post-traumatic stress disorder) F43.10 [place] [id number] [place] [address] 50092- 0689 Apr, Chronic bronchitis, unspecified chronic bronchitis type J42 ; Cervical neuritis M54.12 and Thoracic neuritis M54.14 [place] [address] [address] 59[address] Apr, [place] [address] [id number] [place] [address] 82396- 3218 Apr, Cervicalgia M54.2 [place] [id number] [place] [address] 62898- 7054 Apr, Bipolar 2 disorder F31.81 ; Panic disorder with agoraphobia F40.01 and PTSD (post-traumatic stress disorder) F43.10 [facility] [address] [address] Apr, [facility] [id number] [address] Apr, Cough R05 and Tobacco dependence F17.200 [facility] [address] [id number] [place] [address] 96803- 1055 Apr, [facility] [address] [id number] [place] [address] 20966- 9596 Apr, [facility] [address] [place] [address] [id number] [place] [address] 49533- 8015 March, Bipolar 2 disorder F31.81 ; Panic disorder with agoraphobia F40.01 and Generalized anxiety disorder F41.1 [place] [address] [id number] [place] [address] 19429- 9713 March, Closed displaced fracture of fifth metatarsal bone of right foot with routine healing, subsequent encounter S92.351D [place] [address] [address] [id number] [place] [address] 13187- 6837 March, Bronchitis J40 [place] [address] [place] [address] [id number] [place] [address] 87563- 3769 March, [place] [address] [address] [id number] [place] [address] 40060- 7013 March, [facility] [address] [place] [address] [id number] [place] [address] 99755- 8482 March, Foot pain, right M79.671 ; Cervicalgia M54.2 and 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 mellitus without complication, unspecified mcc insulin use status E11.9 [place] [id number] [place] [address] 62960- 4304 March, Fracture of fifth metatarsal bone of right foot S92.351A [facility] [address] [place] [address] [id number] [place] [address] 86011- 7733 March, [facility] [address] [place] [address] [id number] [place] [address] 58971- 2118 Jan, Fracture of fifth metatarsal bone of right foot S92.351A [place] [address] [address] [id number] [place] [address] 18968- 7994 Jan, Bipolar 2 disorder F31.81 ; PTSD (post-traumatic stress disorder) F43.10 ; Panic disorder with agoraphobia F40.01 and Epilepsy G40.909 [place] [address] [address] [id number] [place] [address] 62989- 8285 Jan, History of AZ (myocardial infarction) I25.2 and History of high cholesterol Z86.39 [place] [address] [id number] [place] [address] 12307- 2168 Jan, Bipolar 2 disorder F31.81 ; Panic disorder with agoraphobia F40.01 ; Tobacco abuse Z72.0 and PTSD (post-traumatic stress disorder) F43.10 [place] [address] [address] [id number] [place] [address] 89613- 3062 Jan, Fracture of fifth metatarsal bone of right foot S92.351A [place] [address] 68014- 1395 Jan, [place] [address] 81035- 0383 Jan, History of high cholesterol Z86.39 [place] [address] [place] [id number] [place] [address] 18258- 3014 Jan, History of [place] (myocardial infarction) I25.2 [place] [address] 46178- 0523 Jan, [place] [address] [place] [id number] [place] [address] 64354- 4491 Dec, Back pain M54.9 ; Diabetes E11.9 ; Right knee pain M25.561 and Chest pain R07.9 [place] [address] [place] [id number] [place] [address] 93211- 4243 Dec, [place] [address] 56880- 1334 Dec, [facility] [address] [place] [id number] [place] [address] 87273- 4089 Dec, Cervicalgia M54.2 [place] [address] [place] [id number] [place] [address] 85812- 0160 Dec, Bipolar 2 disorder F31.81 ; PTSD (post-traumatic stress disorder) F43.10 ; Panic disorder with agoraphobia F40.01 and Epilepsy G40.909 [place] [address] 68653- 5612 Dec, Bipolar 2 disorder F31.81 ; PTSD (post-traumatic stress disorder) F43.10 and Panic disorder with agoraphobia F40.01 [place] [address] [place] [id number] [place] [address] 73306- 2360 Dec, Diabetes E11.9 [place] [address] 49538- 8716 Dec, [place] [address] 48481- 8392 Dec, Other chronic pain G89.29 ; Hepatitis C B19.20 and History of seizures Z87.898 [place] [address] [place] [id number] [place] [address] 74120- 2181 Dec, [place] [address] [place] [address] [id number] [place] [address] 76394- 7330 Dec, Bipolar 2 disorder F31.81 and Other chronic pain G89.29 [place] [address] [place] [id number] [place] [address] 63352- 4602 Dec, Cervicalgia M54.2 and Diabetes E11.9 [place] [address] [place] [id number] [place] [address] 09501- 8565 Dec, [place] [address] 32082- 0626 Dec, [place] [address] [address]- 1130 Dec, [facility] [address] [place] [id number] [place] [address] 49504- 5057 Dec, [facility] [address] [place] [address] [id number] [place] [address] 07297- 6305 Dec, Type 2 diabetes mellitus without complications E11.9 [place] [address] 50462- 1011 10 Dec, 2015 [place] [address] [place] [id number] [place] [address] 20874- 8003 Dec, History of seizures Z87.898 and Hepatitis C B19.20 [place] [address] [place] [id number] [place] [address] 11547- 4632 Dec, Hepatitis C B19.20 [place] [address] [place] [id number] [place] [address] 11118- 4000 Dec, [place] [address] [place] [id number] [place] [address] 53285- 9769 Dec, Cervicalgia M54.2 ; COPD (chronic obstructive pulmonary disease) J44.9 and Hepatitis C B19.20 [place] [address] [place] [id number] [place] [address] 70954- 0191 Dec, Bipolar 2 disorder F31.81 ; History of hypertension Z86.79 ; History of anxiety Z86.59 ; Panic disorder with agoraphobia F40.01 and Epilepsy G40.909 [place] [address] [place] [id number] [place] [address] 84838- 4618 Nov, [place] [address] [place] [id number] [place] [address] 61991- 4754 Nov, [place] [address] [place] [id number] [place] [address] 62909- 5301 Nov, History of seizures Z87.898 ; OAB (overactive bladder) N32.81 ; Lumbago M54.5 ; Other chronic pain G89.29 ; Cervicalgia M54.2 ; Tobacco abuse Z72.0 ; Tobacco abuse counseling Z71.6 and Impaired fasting glucose R73.01 [facility] [id number] [place] [address] 80112- 4650 Nov, Bipolar 2 disorder F31.81 ; PTSD (post-traumatic stress disorder) F43.10 ; History of anxiety Z86.59 ; History of COPD Z87.09 ; Panic disorder with agoraphobia F40.01 and Moderate depressed bipolar I disorder F31.[address] 68661- 6164 12 Nov, 2015 PTSD (post-traumatic stress disorder) F43.10 [facility] [address] [place] [id number] [place] [address] [id number] Nov, Dental examination Z01.20 and Dental caries K02.[address] 73075- 6060 Nov, History of hypertension Z86.79 ; History of hypothyroidism Z86.39 ; History of high cholesterol Z86.39 ; History of COPD Z87.09 and Overactive bladder N32.81 [place] [address] [place] [id number] [place] [address] 63454- 3184 Nov, Bipolar 2 disorder F31.81 and PTSD (post-traumatic stress disorder) F43.10 [facility] [address] [place] [id number] [place] [address] 64474- 3907 Nov, PTSD (post-traumatic stress disorder) F43.10 ; Panic disorder with agoraphobia F40.01 ; Epilepsy G40.909 and Moderate depressed bipolar I disorder F31.32 [facility] [address] [place] [id number] [place] [address] 67927- 4892 Nov, [facility] [address] [place] [id number] [place] [address] 74856- 7506 Nov, [facility] [id number] [place] [address] 40000- 4861 Oct, [place] [id number] [place] [address] 84278- 4940 Oct, Generalized anxiety disorder F41.1 ; Major depression, recurrent F33.9 and PTSD (post-traumatic stress disorder) F43.10 [place] [id number] [place] [address] 51100- 9695 Oct, Elevated fasting glucose R73.[address] 06536- 8086 Oct, Elevated fasting glucose R73.[address] 34639- 1842 Oct, History of COPD Z87.09 [place] [id number] [place] [address] 18780- 4512 Oct, General medical exam Z00.00 ; History of hypertension Z86.79 ; History of hypothyroidism Z86.39 ; History of hepatitis Z86.19 ; History of high cholesterol Z86.39 and History of seizures Z87.898 [place] [id number] [place] [address] 91772- 9292 Oct, General medical exam Z00.00 ; History of hypertension Z86.79 ; History of hypothyroidism Z86.39 ; Bipolar 2 disorder F31.81 ; PTSD ( post-traumatic stress disorder) F43.10 ; History of hepatitis Z86.19 ; History of high cholesterol Z86.39 ; History of anxiety Z86.59 ; History of seizures Z87.898 ; History of [place] (myocardial infarction) I25.2 and History of COPD Z87.09 [place] [id number] [place] [address] 09539- 5303 Oct, Generalized anxiety disorder F41.1 ; Depression F32.9 and PTSD (post-traumatic stress disorder) F43.[address] 41681- 6188 Jan, [facility] [address] [facility] [id number] [address]- 2546 Jan, [facility] [address] [facility] [id number], [place] [address]- 2546 Jun, [facility] [address] [place] [id number] Jun, [facility] [address] [facility] [id number] [address]- 2546 May, [facility] [address] [facility] [id number] [address]- 2546 May, [facility] [address] [id number] May, [facility] [address] [place] [id number] [address]- 2546 May, [facility] [address] [id number] May, [facility] [address] [facility] [id number], [place] [address]- 2546 May, IMMUNIZATIONS No Known Immunizations SOCIAL HISTORY Never Assessed REASON FOR VISIT Controlled Med Refill PLAN OF CARE VITAL SIGNS MEDICATIONS Medication Instructions Dosage Frequency Start Date End Date Duration Status [place] 10-325 MG Orally 3 times a day 1 tablet as needed 8h Oct, Nov, 28 days Active Xanax 2 MG Orally 2 times a day 1 tablet 12h 30 days Active RESULTS No Results PROCEDURES No Known procedures INSTRUCTIONS MEDICATIONS ADMINISTERED No Known Medications MEDICAL (GENERAL) HISTORY Type Description Date Medical History Hypothyroidism Medical History High cholesterol Medical History Hypertension Medical History Brain seizure Medical History Asthma Medical History COPD Medical History Hep C -2004 Medical History [place] x 2 last in [...]
--- OUTSIDE RECORDS SUMMARY | 2019-01-26 07:47 | XMS REPORT ---
Author Author GERARDO KISER [facility] Address [address] [place] [address] Care Team Providers Care Fish Cleaner Name Role Phone MARGI GERARDO Unavailable PROBLEMS Type Condition ICD9-CM Code TCT70-VU Code Onset Dates Condition Status SNOMED Code Problem OAB (overactive bladder) N32.81 Active 979166476 Problem Epilepsy G40.909 Active 65462205 Problem Cervicalgia M54.2 Active 98858381 Problem Other chronic pain G89.29 Active 64089494 Problem Tobacco abuse Z72.0 Active 31985125 Problem Lumbago M54.5 Active 813896607 Problem Hepatitis C B19.20 Active 77789034 Problem COPD (chronic obstructive pulmonary disease) J44.9 Active 22585875 Problem Diabetes E11.9 Active 54386176 Problem Bipolar I disorder with duy F31.10 Active 99532117 Problem Type 2 diabetes mellitus without complications E11.9 Active 647359434 Problem Stress incontinence of urine N39.3 Active 91473189 Problem Bilateral claudication of lower limb I73.9 Active 973236189 Problem Seasonal allergic rhinitis due to other allergic trigger J30.89 Active 833102552 Problem Hyperlipidemia, unspecified hyperlipidemia type E78.5 Active 89998839 Problem Hypertension, unspecified type I10 Active 39659130 Problem Chronic tension-type headache, not intractable G44.229 Active 983123653 Problem 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 mellitus without complication, without long -term current use of insulin E11.9 Active 181562344 Problem Type 2 diabetes mellitus with hyperglycemia E11.65 Active 075363691 Problem Chronic post-traumatic stress disorder (PTSD) F43.12 Active 843566355 Problem History of hypothyroidism Z86.39 Active 154602616 Problem Hypoglycemia E16.2 Active 433334469 Problem El's esophageal ulceration K22.10 Active 254525083 Problem Bipolar affective disorder, currently depressed, mild F31.31 Active 123352533 Problem Irritable bowel syndrome with diarrhea K58.0 Active 641147005 Problem Stress incontinence N39.3 Active 36110737 Problem History of hypertension Z86.79 Active 296606537 Problem Uncontrolled type 2 diabetes mellitus without complication, without long-term current use of insulin E11.65 Active 573236000 Problem Panic disorder with agoraphobia F40.01 Active 80218276 Problem Type 2 diabetes mellitus with hyperglycemia E11.65 Active 691144545 Problem History of seizures Z87.898 Active 347878320 Problem longterm current use of insulin Z79.4 Active 715269646 Problem History of MA (myocardial infarction) I25.2 Active 410199879 Problem Mood disorder F39 Active 26720308 Problem Bipolar 2 disorder F31.81 Active 50577343 Problem Gastritis and duodenitis K29.90 Active 591045977 Problem History of high cholesterol Z86.39 Active 282110484 Problem Bipolar I disorder with mood-congruent psychotic features F31.9 Active 536939417 Problem Hypertension, benign I10 Active 59842199 Problem Primary insomnia F51.01 Active 5853524 ALLERGIES No Information ENCOUNTERS Encounter Location Date Diagnosis [facility] [id number] [place] [address] 87400- 2712 Jul, [facility] [id number] [place] [address] 34738- 2238 Jun, [facility] [id number] [place] [address] 08090- 0311 Jun, [facility] [id number] [place] [address] 93263- 2911 Jun, Lumbago M54.5 [facility] [id number] [place] [address] 32216- 0434 Jun, Type 2 diabetes mellitus with hyperglycemia E11.65 [facility] [address] 08109- 7924 Jun, [facility] [id number] [place] [address] 56215- 7505 Jun, Type 2 diabetes mellitus with hyperglycemia E11.65 ; El 's esophageal ulceration K22.10 and Lumbago M54.5 [facility] [address], [place] [address] 0690 Jun, Type 2 diabetes mellitus with hyperglycemia E11.65 [facility] [address] [place] [address] 50020- 8936 Jun, [facility] [id number] [place] [address] 67953- 5908 Jun, [facility] [id number] [place] [address] 55047- 6504 Jun, Bipolar affective disorder, currently depressed, mild F31.31 ; Chronic post-traumatic stress disorder (PTSD) F43.12 and Panic disorder with agoraphobia F40.01 [facility] [address], [place] [address]- 7129 Jun, [facility] [id number] [place] [address] 84735- 5528 Jun, [facility] [address], [place] [address] 1931 Jun, Type 2 diabetes mellitus with hyperglycemia E11.65 [facility] [id number] [place] [address] 12228- 5025 Jun, Uncontrolled type 2 diabetes mellitus with hyperglycemia E11.65 [facility] [address], [place] [address]- 9413 Jun, [facility] [address] [place] [address] 51351- 5534 May, Lumbago M54.5 [facility] [id number] [id number] May, [facility] [address], [place] [address]- 6235 May, [facility] [address], [place] [address]- 6743 May, [facility] [id number] [address]- 9443 May, [facility] [id number] [place] [address] 85497- 8142 May, [facility] [address] [place] [address] 21795- 9491 May, [facility] [id number] [place] [address] 84520- 1397 May, [facility] [id number] [place] [address] 80452- 2869 May, Lumbago M54.5 [facility] [id number] [place] [address] 01606- 2159 May, [facility] [id number] [place] [address] 93526- [address], [address] of the chest R93.8 [facility] [id number] [place] [address] 70963- 4261 Apr, Bipolar 2 disorder F31.81 ; Chronic post-traumatic stress disorder (PTSD) F43.12 and Panic disorder with agoraphobia F40.01 [facility] [address] [place] [address] 11108- [address] Apr, [address] of the chest R93.8 [facility] [address] [place] [address] 78833- [address] Apr, [address] of the chest R93.8 [facility] [address] [place] [address] 89341- 6165 Apr, [facility] [id number] [place] [address] 60451- 5520 Apr, Type 2 diabetes mellitus with hyperglycemia E11.65 [facility] [address] [place] [address] 37379- 7099 Apr, 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 mellitus without complication, without long-term current use of insulin E11.9 ; Watery eyes H04.203 ; Low back pain M54.5 ; Other chronic pain G89.29 ; Chronic tension-type headache, not intractable G44.229 ; Uncontrolled type 2 diabetes mellitus without complication , without long-term current use of insulin E11.65 and Bronchitis J40 [facility] [id number] [place] [address] 15550- 1104 Apr, [facility] [address] 20328- 3910 Apr, Lumbago M54.5 [facility] [id number] [place] [address] 47976- 6503 March, [facility] [id number] [place] [address] 47648 -2399 March, Cough R05 ; Pneumonia due to infectious organism, unspecified laterality, unspecified part of lung J18.9 and Non-intractable vomiting with nausea, unspecified vomiting type R11.2 [facility] [id number] [place] [address] 50800- 7833 March, Bronchitis J40 [facility] [address] 33944- 4744 March, [facility] [id number] [place] [address] 23000- 7692 March, El's esophageal ulceration K22.10 and Type 2 diabetes mellitus with hyperglycemia E11.65 [facility] [id number] [place] [address] 32139- 2538 March, Panic disorder with agoraphobia F40.01 ; Chronic post- traumatic stress disorder (PTSD) F43.12 and Bipolar 2 disorder F31.81 [facility] [id number] [place] [address] 97688- 0309 March, Type 2 diabetes mellitus with hyperglycemia E11.65 [facility] [id number] [place] [address] 16921- 8368 March, [facility] [address] [address]- 2420 March, Lumbago M54.5 [facility] [id number] [place] [address] 12943- 8743 March, [facility] [id number] [place] [address] 61673- 5954 March, Irritable bowel syndrome with diarrhea K58.0 ; Primary insomnia F51.01 ; Type 2 diabetes mellitus with hyperglycemia E11.65 and 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 [facility] [id number] [place] [address] 22076- 1662 March, [facility] [id number] [place] [address] 34341- 3839 Jan, [facility] [id number] [place] [address] 17389- 4257 Jan, [facility] [id number] [place] [address] 52033- 6086 Jan, [facility] [id number] [place] [address] 90684- 8191 Jan, [facility] [id number] [place] [address] 31179- 4674 Jan, Dizziness R42 [facility] [id number] [place] [address] 96342- 5057 Jan, Bipolar affective disorder, currently depressed, mild F31.31 ; Panic disorder with agoraphobia F40.01 and Chronic post-traumatic stress disorder (PTSD) F43.12 [facility] [address] [place] [address] 28454- 7889 Jan, Dizziness R42 [facility] [id number] [place] [address] 75675- 1349 Jan, Chest pain, unspecified type R07.9 ; Exertional dyspnea R06.09 ; Hypertension, unspecified type I10 and Hyperlipidemia, unspecified hyperlipidemia type E78.5 [facility] [id number] [place] [address] 43697- 1270 Jan, [facility] [address] 60822- 1257 09 Jan, 2018 Lumbago M54.5 [facility] [id number] [place] [address] 87463- 9974 04 Jan, 2018 El's esophageal ulceration K22.10 ; Blister (nonthermal ) of oral cavity, initial encounter S00.522A ; Local infection of the skin and subcutaneous tissue, unspecified L08.9 ; Type 2 diabetes mellitus with hyperglycemia E11.65 ; 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 and Stress incontinence N39.3 [facility] [id number] [place] [address] 00079- 9433 27 Dec, 2017 [facility] [id number] [place] [address] 27742- 6748 27 Dec, 2017 [facility] [id number] [place] [address] 80008- 3281 19 Dec, 2017 [facility] [address] [id number] 16 Dec, 2017 Dental examination Z01.20 [facility] [id number] [place] [address] 08375- 0097 15 Dec, 2017 Acute pain of right knee M25.561 [facility] [id number] [place] [address] 55777- 8599 14 Dec, 2017 [facility] [id number] [place] [address] 36444- 2052 14 Dec, 2017 [facility] [id number] [place] [address] 36624- 2422 14 Dec, 2017 Lumbago M54.5 ; Acute pain of right knee M25.561 and Seasonal allergic rhinitis due to other allergic trigger J30.89 [facility] [id number] [place] [address] 55573- 9205 Dec, Type 2 diabetes mellitus with hyperglycemia E11.65 [facility] [address], [place] [address]- 9521 Dec, [facility] [id number] [place] [address] 18732- 9922 Dec, [facility] [id number] [place] [address] 41142- 9856 Dec, [facility] [id number] [place] [address] 62431- 6486 Dec, [facility] [id number] [place] [address] 85389- 7568 Dec, Chronic post-traumatic stress disorder (PTSD) F43.12 and Panic disorder with agoraphobia F40.01 [facility] [id number] [place] [address] 47082- 8663 13 Dec, 2017 Low back pain M54.5 [facility] [id number] [place] [address] 81685- 7657 12 Dec, 2017 Type 2 diabetes mellitus with hyperglycemia E11.65 ; longterm current use of insulin Z79.4 ; Low back pain M54.5 ; Encounter for therapeutic drug level monitoring Z51.81 and Other chronic pain G89.29 [facility] [address] [place] [address] 72175- 8969 Dec, Coughing R05 [facility] [address] [place] [address] 73013- 6527 Dec, [facility] [address] [place] [address] [id number] 07 Dec, 2017 Dental examination Z01.20 [facility] [address] [place] [address] 24556- 3845 Nov, Type 2 diabetes mellitus without complications E11.9 and Encounter for therapeutic drug level monitoring Z51.81 [facility] [id number] [place] [address] 22155- 9540 Nov, [facility] [address], [place] [address]- 7631 Oct, Type 2 diabetes mellitus without complications E11.9 [facility] [id number] [place] [address] 74764- 7757 Oct, Type 2 diabetes mellitus with hyperglycemia E11.65 [facility] [id number] [place] [address] 16161- 2463 Aug, Type 2 diabetes mellitus without complications E11.9 [facility] [id number] [place] [address] 07243- 7237 Aug, Type 2 diabetes mellitus without complications E11.9 ; Hypoglycemia E16.2 ; Lumbago M54.5 ; Stress incontinence of urine N39.3 and History of MA (myocardial infarction) I25.2 [facility] [id number] [place] [address] 61290- 1020 Jun, [facility] [address] [place] [address] 38008- 5009 May, [facility] [id number] [place] [address] 19043- 5334 Apr, Panic disorder with agoraphobia F40.01 [facility] [id number] [address]- 1610 Apr, Panic disorder with agoraphobia F40.01 [facility] [address], [place] [address]- 6586 Apr, [facility] [address] [place] [address] 03909- 7130 March, Other chronic pain G89.29 [facility] [id number] [address]- 4245 March, [facility] [id number] [address]- 7715 March, [facility] [address], [place] [address]- 4955 March, [facility] [address] [place] [address] 11538- 8546 March, [facility] [address] [place] [address] 88935- 8579 March, Type 2 diabetes mellitus without complications E11.9 [facility] [id number] [place] [address] 34022- 4147 16 Mar, 2017 Diarrhea, unspecified type R19.7 [facility] [id number] [place] [address] 02087- 6682 March, Bipolar 2 disorder F31.81 ; Chronic post-traumatic stress disorder (PTSD) F43.12 and Type 2 diabetes mellitus with hyperglycemia E11.65 [facility] [id number] [place] [address] 13348- 2055 March, [facility] [id number] [place] [address] 22358- 0674 March, [facility] [address] [place] [address] 25220- 5073 March, Hypertension, benign I10 ; Type 2 diabetes mellitus with hyperglycemia E11.65 ; Hepatitis C B19.20 ; Gastritis and duodenitis K29.90 and Dysuria R30.0 [facility] [address] [place] [address] 91564- 5103 March, Hypertension, benign I10 ; Type 2 diabetes mellitus with hyperglycemia E11.65 ; Hepatitis C B19.20 ; Gastritis and duodenitis K29.90 and Dysuria R30.0 [facility] [address] [place] [address] 78543- 9601 March, Panic disorder with agoraphobia F40.01 ; Chronic post- traumatic stress disorder (PTSD) F43.12 ; Epilepsy G40.909 and Bipolar I disorder with mood-congruent psychotic features F31.9 [facility] [address] [address]- 7370 March, [facility] [id number] [place] [address] 01774- 3320 March, Type 2 diabetes mellitus with hyperglycemia E11.65 [facility] [id number] [place] [address] 93480- 8227 18 Jan, 2017 Bipolar I disorder with duy F31.10 [facility] [id number] [place] [address] 16543- 6098 17 Jan, 2017 Bipolar 2 disorder F31.81 ; Chronic post-traumatic stress disorder (PTSD) F43.12 and Type 2 diabetes mellitus with hyperglycemia E11.65 [facility] [id number] [place] [address] 28336- 6914 Jan, [facility] [id number] [place] [address] 02931- 0417 Jan, [facility] [id number] [place] [address] 46835- 9290 14 Jan, 2017 Panic disorder with agoraphobia F40.01 [facility] [id number] [place] [address] 90847- 1062 Jan, Panic disorder with agoraphobia F40.01 ; Bipolar I disorder with mood-congruent psychotic features F31.9 ; Chronic post-traumatic stress disorder (PTSD) F43.12 and Epilepsy G40.909 [facility] [address] [place] [address] 41350- 8847 Jan, [facility] [address] [place] [address] 45995- 2485 Jan, [facility] [id number] [place] [address] 39921- 0238 Jan, Type 2 diabetes mellitus without complications E11.9 and Hypoglycemia E16.2 [facility] [id number] [place] [address] 56502- 6830 07 Jan, 2017 Type 2 diabetes mellitus without complications E11.9 ; Primary insomnia F51.01 and Hypertension, benign I10 [facility] [address], [place] [address]- 2053 Jan, [facility] [id number] [place] [address] [id number] Jan, [facility] [id number] [place] [address] 57618- 8876 Dec, Type 2 diabetes mellitus with hyperglycemia E11.65 [facility] [id number] [place] [address] 11640- 0957 Dec, [facility] [id number] [place] [address] 42691- 1980 Dec, Bipolar 2 disorder F31.81 ; Panic disorder with agoraphobia F40.01 ; Chronic post-traumatic stress disorder (PTSD) F43.12 and Epilepsy G40.909 [facility] [id number] [place] [address] 30424- 2304 Dec, [facility] [id number] [place] [address] 92234- 9854 Dec, [facility] [id number] [place] [address] 51681- 4405 Dec, Bipolar 2 disorder F31.81 ; Panic disorder with agoraphobia F40.01 ; Chronic post-traumatic stress disorder (PTSD) F43.12 and Epilepsy G40.909 [facility] [address] [place] [address] 26676- 9787 Dec, [facility] [address] [place] [address] 48572- 7284 Dec, [facility] [id number] [place] [address] 59773- 9828 Dec, [facility] [address] [place] [address] 06347- 9745 Dec, Type 2 diabetes mellitus with hyperglycemia E11.65 ; 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 and Lumbago M54.5 [facility] [id number] [place] [address] 67261- 6963 Dec, [facility] [address] 18603- 4409 Dec, [facility] [address] 56786- 5822 Dec, [facility] [id number] [place] [address] 02597 -2246 Dec, Pain of left leg M79.605 and Pain in right leg M79.604 [facility] [address] 54253- 2500 Dec, [facility] [address] 34926- 9964 Dec, Type 2 diabetes mellitus with hyperglycemia E11.65 [facility] [id number] [place] [address] 12518- 3793 Dec, [facility] [address] 12587- 7489 Dec, Type 2 diabetes mellitus with hyperglycemia E11.65 ; longterm current use of insulin Z79.4 ; Vagina, candidiasis B37.3 and Other chronic pain G89.29 [facility] [id number] [place] [address] 31885- 4917 Nov, Panic disorder with agoraphobia F40.01 [facility] [id number] [place] [address] 43884- 6872 Nov, [facility] [address] 52022- 4861 Nov, [facility] [id number] [place] [address] 82616- 8251 Nov, Hypoglycemia E16.2 [facility] [address] [place] [address]- 0846 Nov, [facility] [address] [address]- 7975 Nov, [facility] [address], [place] [address]- 2994 Nov, [facility] [address] [place] [address] 60490- 9184 Nov, Type 2 diabetes mellitus with hyperglycemia E11.65 and 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 [facility] [address] [place] [address] 17721- 1543 Nov, Panic disorder with agoraphobia F40.01 ; Bipolar 2 disorder F31.81 ; Chronic post-traumatic stress disorder (PTSD) F43.12 and Epilepsy G40.909 [facility] [address] [place] [address] 93626- 1424 Nov, Panic disorder with agoraphobia F40.01 [facility] [address] [address]- 2093 Oct, [facility] [address] [place] [address] 95185- 0646 Oct, [facility] [address] [address]- 6570 Oct, Bipolar 2 disorder F31.81 ; Panic disorder with agoraphobia F40.01 and Mood disorder F39 [facility] [address], [place] [address]- 1635 Oct, Diabetes E11.9 ; Type 2 diabetes mellitus with hyperglycemia E11.65 and longterm current use of insulin Z79.4 [facility] [address] [address]- 1200 Oct, [facility] [address] [address] Sep, [facility] [id number], [place] [address] 29 Sep, 2016 Bipolar 2 disorder F31.81 and Mood disorder F39 [facility] [id number] [place] [id number] Sep, [facility] [id number] [place] [phone] Sep, Uncontrolled type 2 diabetes mellitus without complication, without long-term current use of insulin E11.65 [facility] [id number] [place], [place] [address] 44010- 3670 Sep, [facility] [id number] [place] [address] 56333- 4111 Sep, [facility] [id number] [place] [address] 44544- 9696 Sep, [facility] [id number] [place] [address] 90905- 3733 Sep, [facility] [id number] [place] [address] 55671- 2023 Sep, Bipolar 2 disorder F31.81 ; Chronic post-traumatic stress disorder (PTSD) F43.12 ; Panic disorder with agoraphobia F40.01 and Epilepsy G40.909 [facility] [address], [place] [address] Sep, Bipolar 2 disorder F31.81 ; PTSD (post-traumatic stress disorder) F43.10 and Panic disorder with agoraphobia F40.01 [facility] [address], [place] [address] 08[address] Sep, [facility] [id number] [place] [address] 50009- 0957 Aug, History of seizures Z87.898 ; Panic disorder with agoraphobia F40.01 and Bipolar 2 disorder F31.81 [facility] [id number] [place] [address] 29836- 9718 Aug, [facility] [id number] [place] [address] 31111- 7119 17 Aug, 2016 [facility] [id number] [place] [address] 86721- 8758 Aug, [facility] [id number] [place] [address] 40334- 6769 Aug, [facility] [address] 39654- 2761 Aug, [facility] [id number] [place] [address] 40604- 3117 Aug, [facility] [address] 30805- 4843 10 Aug, 2016 Hypoglycemia E16.2 and Bilateral impacted cerumen H61.23 [facility] [address] 92922- 5808 Aug, [facility] [id number] [place] [address] 42075- 5707 21 Jul, 2016 [facility] [id number] [place] [address] 19135- 0472 21 Jul, 2016 [facility] [id number] [place] [address] 27389- 1958 15 Jul, 2016 Bipolar 2 disorder F31.81 ; Panic disorder with agoraphobia F40.01 ; PTSD (post-traumatic stress disorder) F43.10 and Epilepsy G40.909 [facility] [id number] [place] [address] 73062- 6567 12 Jul, 2016 [facility] [id number] [place] [address] 71315- 3421 09 Jul, 2016 Type 2 diabetes mellitus without complications E11.9 and Coughing R05 [facility] [id number] [place] [address] 15569- 0972 06 Jul, 2016 [facility] [address] [place] [address]- 1254 Jun, [facility] [id number] [place] [address] 08222- 1866 Jun, Bipolar 2 disorder F31.81 ; PTSD (post-traumatic stress disorder) F43.10 and Panic disorder with agoraphobia F40.01 [facility] [id number] [place] [address] 75361- 4054 Jun, [facility] [id number] [place] [address] 18824- 5307 Jun, [facility] [id number] [place] [address] 18799- 2853 Jun, [facility] [id number] [place] [address] 20016- 7728 Jun, Type 2 diabetes mellitus without complications E11.9 and COPD (chronic obstructive pulmonary disease) J44.9 [facility] [id number] [place] [address] [id number] May, Dental examination Z01.20 and Dental caries K02.9 [facility] [id number] [place] [address] 87329- 3561 May, Bipolar 2 disorder F31.81 ; PTSD (post-traumatic stress disorder) F43.10 and Panic disorder with agoraphobia F40.01 [facility] [id number] [place] [address] 31099- 9679 May, Lumbago with sciatica, right side M54.41 ; Other chronic pain G89.29 and Uncontrolled type 2 diabetes mellitus without complication, without long-term current use of insulin E11.65 [facility] [id number] [place] [address] 87418- 7982 May, Chronic bronchitis, unspecified chronic bronchitis type J42 [facility] [id number] [place] [address] 62501- 3135 May, [facility] [address] [place] [address]- 9681 May, [facility] [id number] [place] [address] 37073- 0394 May, Chest pain, unspecified type R07.9 ; Tobacco use Z72.0 ; Type 2 diabetes mellitus without complications E11.9 ; Essential hypertension I10 ; Hyperlipidemia, unspecified hyperlipidemia type E78.5 ; Obesity (BMI 30- 39.9) E66.9 ; History of hypothyroidism Z86.39 ; Chronic obstructive pulmonary disease, unspecified COPD type J44.9 ; Anxiety F41.9 ; Bilateral claudication of lower limb I73.9 and Bipolar 2 disorder F31.81 [facility] [address] 36835- 8574 May, Bipolar 2 disorder F31.81 ; Panic disorder with agoraphobia F40.01 and Tobacco abuse Z72.0 [facility] [address] 66619- 6554 Apr, [facility] [address] 09940- 5888 Apr, [facility] [address] 56929- 3147 Apr, [facility] [id number] [place] [address] 86997- 0126 Apr, Bipolar 2 disorder F31.81 ; Panic disorder with agoraphobia F40.01 and PTSD (post-traumatic stress disorder) F43.10 [facility] [id number] [place] [address] 61760- 5693 Apr, Chronic bronchitis, unspecified chronic bronchitis type J42 ; Cervical neuritis M54.12 and Thoracic neuritis M54.14 [facility] [id number] [place] [address] 02280- 7304 Apr, [facility] [id number] [place] [address] 97148- 2354 Apr, Cervicalgia M54.2 [facility] [id number] [place] [address] 62471- 2686 14 Apr, 2016 Bipolar 2 disorder F31.81 ; Panic disorder with agoraphobia F40.01 and PTSD (post-traumatic stress disorder) F43.10 [facility] [id number] [place] [address] 09390 -1256 13 Apr, 2016 [facility] [id number] [place] [address] 76202 -7579 09 Apr, 2016 Cough R05 and Tobacco dependence F17.200 [facility] [address] 66743- 9059 Apr, [facility] [address] 64639- 8321 Apr, [facility] [id number] [place] [address] 64310- 2040 March, Bipolar 2 disorder F31.81 ; Panic disorder with agoraphobia F40.01 and Generalized anxiety disorder F41.1 [facility] [id number] [place] [address] 42145- 5410 March, Closed displaced fracture of fifth metatarsal bone of right foot with routine healing, subsequent encounter S92.351D [facility] [id number] [place] [address] 64994- 7929 March, Bronchitis J40 [facility] [id number] [place] [address] 21232- 2285 March, [facility] [id number] [place] [address] 19624- 0154 March, [facility] [address] 58590- 6087 March, Foot pain, right M79.671 ; Cervicalgia M54.2 and 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 mellitus without complication, 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 [facility] [id number] [place] [address] 36787- 9258 March, Fracture of fifth metatarsal bone of right foot S92.351A [facility] [id number] [place] [address] 96053- 7068 March, [facility] [id number] [place] [address] 45641- 9827 Jan, Fracture of fifth metatarsal bone of right foot S92.351A [facility] [id number] [place] [address] 75026- 5434 Jan, Bipolar 2 disorder F31.81 ; PTSD (post-traumatic stress disorder) F43.10 ; Panic disorder with agoraphobia F40.01 and Epilepsy G40.909 [facility] [id number] [place] [address] 93472- 3382 Jan, History of MA (myocardial infarction) I25.2 and History of high cholesterol Z86.39 [facility] [id number] [place] [address] 50871- 2255 Jan, Bipolar 2 disorder F31.81 ; Panic disorder with agoraphobia F40.01 ; Tobacco abuse Z72.0 and PTSD (post-traumatic stress disorder) F43.10 [facility] [address] [place] [address] 02553- 7540 Jan, Fracture of fifth metatarsal bone of right foot S92.351A [facility] [id number] [place] [address] 38851- 8209 Jan, [facility] [id number] [place] [address] 97180- 7565 Jan, History of high cholesterol Z86.39 [facility] [id number] [place] [address] 83483- 8894 Jan, History of MA (myocardial infarction) I25.2 [facility] [id number] [place] [address] 28223- 0111 Jan, [facility] [id number] [place] [address] 67343- 2519 Dec, Back pain M54.9 ; Diabetes E11.9 ; Right knee pain M25.561 and Chest pain R07.9 [facility] [id number] [place] [address] 65574- 6901 Dec, [facility] [address] 99882- 0534 Dec, [facility] [address] 13786- 0160 Dec, Cervicalgia M54.2 [facility] [address] 66844- 1521 Dec, Bipolar 2 disorder F31.81 ; PTSD (post-traumatic stress disorder) F43.10 ; Panic disorder with agoraphobia F40.01 and Epilepsy G40.909 [facility] [address] 02606- 4972 Dec, Bipolar 2 disorder F31.81 ; PTSD (post-traumatic stress disorder) F43.10 and Panic disorder with agoraphobia F40.01 [facility] [id number] [place] [address] 17179- 2274 Dec, Diabetes E11.9 [facility] [id number] [place] [address] 63687- 8077 Dec, [facility] [id number] [place] [address] 19614- 6573 Dec, Other chronic pain G89.29 ; Hepatitis C B19.20 and History of seizures Z87.898 [facility] [address] 69584- 1215 Dec, [facility] [id number] [place] [address] 85819- 3316 Dec, Bipolar 2 disorder F31.81 and Other chronic pain G89.29 [facility] [id number] [place] [address] 59163- 0106 23 Dec, 2015 Cervicalgia M54.2 and Diabetes E11.9 [facility] [id number] [place] [address] 80574- 8063 18 Dec, 2015 [facility] [id number] [place] [address] 78187- 5044 Dec, [facility] [address] 28054- 5492 Dec, [facility] [id number] [place] [address] 34923- 6467 Dec, [facility] [id number] [place] [address] 93305- 7164 12 Dec, 2015 Type 2 diabetes mellitus without complications E11.9 [facility] [id number] [place] [address] 50319- 8572 10 Dec, 2015 [facility] [id number] [place] [address] 94710- 3039 09 Dec, 2015 History of seizures Z87.898 and Hepatitis C B19.20 [facility] [id number] [place] [address] 72795- 4512 08 Dec, 2015 Hepatitis C B19.20 [facility] [id number] [place] [address] 98974- 8118 Dec, [facility] [id number] [place] [address] 74523- 3249 Dec, Cervicalgia M54.2 ; COPD (chronic obstructive pulmonary disease) J44.9 and Hepatitis C B19.20 [facility] [id number] [place] [address] 92466- 5122 02 Dec, 2015 Bipolar 2 disorder F31.81 ; History of hypertension Z86.79 ; History of anxiety Z86.59 ; Panic disorder with agoraphobia F40.01 and Epilepsy G40.909 [facility] [address] [place] [address] 96164- 1244 Nov, [facility] [address] 23515- 2106 Nov, [facility] [id number] [place] [address] 91547- 3333 Nov, History of seizures Z87.898 ; OAB (overactive bladder) N32.81 ; Lumbago M54.5 ; Other chronic pain G89.29 ; Cervicalgia M54.2 ; Tobacco abuse Z72.0 ; Tobacco abuse counseling Z71.6 and Impaired fasting glucose R73.01 [facility] [address] 09869- 8810 Nov, Bipolar 2 disorder F31.81 ; PTSD (post-traumatic stress disorder) F43.10 ; History of anxiety Z86.59 ; History of COPD Z87.09 ; Panic disorder with agoraphobia F40.01 and Moderate depressed bipolar I disorder F31.32 [place] [id number] [place] [address] 89458- 1049 12 Nov, 2015 PTSD (post-traumatic stress disorder) F43.10 [facility] [id number] [place] [address] [phone] 11 Nov, 2015 Dental examination Z01.20 and Dental caries K02.9 [place] [id number] [place] [address] 18613- 9828 08 Nov, 2015 History of hypertension Z86.79 ; History of hypothyroidism Z86.39 ; History of high cholesterol Z86.39 ; History of COPD Z87.09 and Overactive bladder N32.81 [facility] [id number] [place] [address] 38010- 9658 Nov, Bipolar 2 disorder F31.81 and PTSD (post-traumatic stress disorder) F43.10 [facility] [address] [place] [place] [id number] [place] [address] 70704- 4214 Nov, PTSD (post-traumatic stress disorder) F43.10 ; Panic disorder with agoraphobia F40.01 ; Epilepsy G40.909 and Moderate depressed bipolar I disorder F31.32 [facility] [id number] [place] [address] 38367- 2203 Nov, [facility] [id number] [place] [address] 27620- 5642 Nov, [facility] [id number] [place] [address] 25799- 2895 Oct, [facility] [id number] [place] [address] 01964- 4235 Oct, Generalized anxiety disorder F41.1 ; Major depression, recurrent F33.9 and PTSD (post-traumatic stress disorder) F43.10 [facility] [id number] [place] [address] 48287- 6555 Oct, Elevated fasting glucose R73.01 [facility] [id number] [place] [address] 06621- 4756 Oct, Elevated fasting glucose R73.01 [facility] [id number] [place] [address] 86864- 2013 17 Oct, 2015 History of COPD Z87.09 [facility] [id number] [place] [address] 14932- 7846 15 Oct, 2015 General medical exam Z00.00 ; History of hypertension Z86.79 ; History of hypothyroidism Z86.39 ; History of hepatitis Z86.19 ; History of high cholesterol Z86.39 and History of seizures Z87.898 [facility] [address] [place] [address] 85536- 6125 Oct, General medical exam Z00.00 ; History of hypertension Z86.79 ; History of hypothyroidism Z86.39 ; Bipolar 2 disorder F31.81 ; PTSD ( post-traumatic stress disorder) F43.10 ; History of hepatitis Z86.19 ; History of high cholesterol Z86.39 ; History of anxiety Z86.59 ; History of seizures Z87.898 ; History of MA (myocardial infarction) I25.2 and History of COPD Z87.09 [facility] [address], [place] [address]- 3943 Oct, Generalized anxiety disorder F41.1 ; Depression F32.9 and PTSD (post-traumatic stress disorder) F43.10 [facility] [address], [place] [address]- 8190 Jan, [facility] [id number] [place] [address] 97011- 5274 Jan, [facility] [address] [place] [address] 97860- 3471 Jun, [address] [id number] Jun, [facility] [address] [place] [address] 80949513- 5469 May, [facility] [id number] [place] [address] [phone]- 1524 May, [address] [id number] May, [facility] [id number] [place] [address] 20750- 3082 May, [address] [id number] May, [facility] [address], [place] [address]- 9387 May, IMMUNIZATIONS No Known Immunizations SOCIAL HISTORY Never Assessed REASON FOR VISIT Controlled Med Refill 05/05/18 PLAN OF CARE VITAL SIGNS MEDICATIONS Medication Instructions Dosage Frequency Start Date End Date Duration Status [place] 10-325 MG Orally 3 times a day 1 tablet as needed 8h May, 28 days Active RESULTS No Results [...]
--- OUTSIDE RECORDS SUMMARY | 2019-01-26 07:48 | XMS REPORT ---
Author Author GERARDO KISER [facility] Address [address] [place] [address] Care Team Providers Care Telemarketing Supervisor Name Role Phone MARGI GERARDO Unavailable PROBLEMS Type Condition ICD9-CM Code LSB11-YZ Code Onset Dates Condition Status SNOMED Code Problem OAB (overactive bladder) N32.81 Active 635740038 Problem Epilepsy G40.909 Active 20004732 Problem Cervicalgia M54.2 Active 91395312 Problem Other chronic pain G89.29 Active 16958132 Problem Tobacco abuse Z72.0 Active 81817492 Problem Lumbago M54.5 Active 711830768 Problem Hepatitis C B19.20 Active 45540607 Problem COPD (chronic obstructive pulmonary disease) J44.9 Active 37442252 Problem Diabetes E11.9 Active 12195264 Problem Bipolar I disorder with duy F31.10 Active 29811021 Problem Type 2 diabetes mellitus without complications E11.9 Active 626037192 Problem Stress incontinence of urine N39.3 Active 47994477 Problem Bilateral claudication of lower limb I73.9 Active 948312042 Problem Seasonal allergic rhinitis due to other allergic trigger J30.89 Active 979789912 Problem Hyperlipidemia, unspecified hyperlipidemia type E78.5 Active 93396550 Problem Hypertension, unspecified type I10 Active 66573188 Problem Chronic tension-type headache, not intractable G44.229 Active 137090937 Problem 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 mellitus without complication, without long -term current use of insulin E11.9 Active 102562677 Problem Type 2 diabetes mellitus with hyperglycemia E11.65 Active 777105346 Problem Chronic post-traumatic stress disorder (PTSD) F43.12 Active 356085328 Problem History of hypothyroidism Z86.39 Active 635976023 Problem Hypoglycemia E16.2 Active 894185875 Problem El's esophageal ulceration K22.10 Active 306177938 Problem Bipolar affective disorder, currently depressed, mild F31.31 Active 571486541 Problem Irritable bowel syndrome with diarrhea K58.0 Active 613477150 Problem Stress incontinence N39.3 Active 70781082 Problem History of hypertension Z86.79 Active 399424033 Problem Uncontrolled type 2 diabetes mellitus without complication, without long-term current use of insulin E11.65 Active 420158612 Problem Panic disorder with agoraphobia F40.01 Active 02777485 Problem Type 2 diabetes mellitus with hyperglycemia E11.65 Active 807182602 Problem History of seizures Z87.898 Active 338208092 Problem snf current use of insulin Z79.4 Active 209150097 Problem History of [place] (myocardial infarction) I25.2 Active 801569060 Problem Mood disorder F39 Active 05966393 Problem Bipolar 2 disorder F31.81 Active 29557727 Problem Gastritis and duodenitis K29.90 Active 013913598 Problem History of high cholesterol Z86.39 Active 783969653 Problem Bipolar I disorder with mood-congruent psychotic features F31.9 Active 443403399 Problem Hypertension, benign I10 Active 89331870 Problem Primary insomnia F51.01 Active 2523403 ALLERGIES No Information ENCOUNTERS Encounter Location Date Diagnosis [place] [id number] [address] Jul, [facility] [address] [address] Jun, Type 2 diabetes mellitus with hyperglycemia E11.65 [facility] [address] [address]- [address] Jun, [facility] [address] [address]- [address] Jun, Type 2 diabetes mellitus with hyperglycemia E11.65 and El's esophageal ulceration K22.10 [facility] [address] [address]- [address]162 Jun, Type 2 diabetes mellitus with hyperglycemia E11.65 [facility] [address] [address]- 7841 Jun, [facility] [address] [address]- 66[address] Jun, [facility] [address] [address] 14 Jun, 2018 Bipolar affective disorder, currently depressed, mild F31.31 ; Chronic post-traumatic stress disorder (PTSD) F43.12 and Panic disorder with agoraphobia F40.01 [facility] [address] [address] 14 Jun, 2018 [facility] [address] [place] [id number] [place] [address] 45141- 9070 13 Jun, 2018 [facility] [address] [place] [id number] [place] [address] 07244- 8211 Jun, Type 2 diabetes mellitus with hyperglycemia E11.65 [facility] [address] [place] [id number] [place] [address] 23319- 9126 Jun, Uncontrolled type 2 diabetes mellitus with hyperglycemia E11.65 [facility] [address] [place] [id number] [place] [address] 74267- 4703 Jun, [facility] [address] [place] [address] 16400- 8905 May, Lumbago M54.5 [facility] [address] [id number] May, [facility] [address] [address] 8865 May, [facility] [address] [place] [address] 26523- 8281 May, [facility] [address] [address] 2348 May, [facility] [address] [place] [id number] [place] [address] 05692- 6168 May, [facility] [address] [address] 0955 May, [facility] [address] [place] [id number] [place] [address] 53557- 1266 May, [place] [address] [place] [address] 58513- 5441 May, Lumbago M54.5 [place] [address] [place] [id number] [place] [address] 27489- 8185 May, [place] [address] [place] [id number] [place] [address] 03623- [address], [address] of the chest R93.8 [place] [address] [place] [id number] [place] [address] 81952- 8140 Apr, Bipolar 2 disorder F31.81 ; Chronic post-traumatic stress disorder (PTSD) F43.12 and Panic disorder with agoraphobia F40.01 [place] [address] [place] [id number] [place] [address] 84352- [address] Apr, [address] of the chest R93.8 [place] [address] [place] [id number] [place] [address] 57448- [address] Apr, [address] of the chest R93.8 [place] [address] [place] [id number] [place] [address] 12099- 4712 Apr, [place] [address] [place] [id number] [place] [address] 07106- 5529 Apr, Type 2 diabetes mellitus with hyperglycemia E11.65 [place] [address] [place] [id number] [place] [address] 07156- 6296 Apr, 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 mellitus without complication, without long-term current use of insulin E11.9 ; Watery eyes H04.203 ; Low back pain M54.5 ; Other chronic pain G89.29 ; Chronic tension-type headache, not intractable G44.229 ; Uncontrolled type 2 diabetes mellitus without complication , without long-term current use of insulin E11.65 and Bronchitis J40 [place] [address] [place] [id number] [place] [address] 51786- 5843 Apr, [place] [address] [place] [id number] [place] [address] 50492- 0389 Apr, Lumbago M54.5 [facility] [address] [place] [address] 63570- 6073 March, [facility] [address] [place] [address] 23499 -0318 March, Cough R05 ; Pneumonia due to infectious organism, unspecified laterality, unspecified part of lung J18.9 and Non-intractable vomiting with nausea, unspecified vomiting type R11.2 [facility] [address] [place] [id number] [place] [address] 62567- 8907 March, Bronchitis J40 [facility] [address] [place] [id number] [place] [address] 06229- 9572 March, [place] [address] [place] [id number] [place] [address] 47679- 1202 March, El's esophageal ulceration K22.10 and Type 2 diabetes mellitus with hyperglycemia E11.65 [facility] [address] [place] [id number] [place] [address] 55700- 1198 March, Panic disorder with agoraphobia F40.01 ; Chronic post- traumatic stress disorder (PTSD) F43.12 and Bipolar 2 disorder F31.81 [facility] [address] [place] [address] 32430- 6538 March, Type 2 diabetes mellitus with hyperglycemia E11.65 [facility] [address] [place] [id number] [place] [address] 95135- 9681 March, [facility] [address] [place] [id number] [place] [address] 37094- 0270 March, Lumbago M54.5 [facility] [address] [place] [id number] [place] [address] 04138- 5245 March, [facility] [address] [place] [address] 62915- 6508 March, Irritable bowel syndrome with diarrhea K58.0 ; Primary insomnia F51.01 ; Type 2 diabetes mellitus with hyperglycemia E11.65 and snf current use of insulin Z79.4 [facility] [address] [place] [id number] [place] [address] 97357- 9793 March, [facility] [address] [place] [id number] [place] [address] 61380- 4183 Jan, [facility] [address] [place] [id number] [place] [address] 11789- 7553 Jan, [facility] [address] [place] [id number] [place] [address] 16401- 6105 Jan, [facility] [address] [place] [id number] [place] [address] 28671- 0360 Jan, [place] [address] [place] [id number] [place] [address] 28564- 7242 Jan, Dizziness R42 [place] [address] [place] [id number] [place] [address] 79415- 7986 Jan, Bipolar affective disorder, currently depressed, mild F31.31 ; Panic disorder with agoraphobia F40.01 and Chronic post-traumatic stress disorder (PTSD) F43.12 [place] [address] [place] [id number] [place] [address] 98009- 8253 Jan, Dizziness R42 [place] [address] [place] [id number] [place] [address] 99736- 4795 Jan, Chest pain, unspecified type R07.9 ; Exertional dyspnea R06.09 ; Hypertension, unspecified type I10 and Hyperlipidemia, unspecified hyperlipidemia type E78.5 [place] [address] [place] [id number] [place] [address] 04776- 3840 Jan, [place] [address] [place] [id number] [place] [address] 84666- 6448 Jan, Lumbago M54.5 [place] [address] [place] [id number] [place] [address] 58855- 4317 Jan, El's esophageal ulceration K22.10 ; Blister (nonthermal ) of oral cavity, initial encounter S00.522A ; Local infection of the skin and subcutaneous tissue, unspecified L08.9 ; Type 2 diabetes mellitus with hyperglycemia E11.65 ; snf current use of insulin Z79.4 and Stress incontinence N39.3 [facility] [address] [place] [id number] [place] [address] 59906- 4523 27 Dec, 2017 [place] [address] 8[address]- 8296 27 Dec, 2017 [place] [address] [place] [id number] [place] [address] 86301- 4935 19 Dec, 2017 [facility] [address] [id number] 16 Dec, 2017 Dental examination Z01.20 [place] [address] [place] [id number] [place] [address] 20884- 4786 15 Dec, 2017 Acute pain of right knee M25.561 [place] [address] [place] [id number] [place] [address] 99173- 3734 14 Dec, 2017 [place] [address] [place] [id number] [place] [address] 20910- 4270 14 Dec, 2017 [facility] [address] [place] [id number] [place] [address] 55457- 8479 14 Dec, 2017 Lumbago M54.5 ; Acute pain of right knee M25.561 and Seasonal allergic rhinitis due to other allergic trigger J30.89 [place] [address] [place] [id number] [place] [address] 92087- 2304 Dec, Type 2 diabetes mellitus with hyperglycemia E11.65 [place] [address] [place] [id number] [place] [address] 95327- 0144 Dec, [facility] [address] [place] [id number] [place] [address] 08706- 9361 Dec, [facility] [address] [place] [id number] [place] [address] 52454- 1464 Dec, [facility] [address] [place] [address] 27348- 9794 Dec, [facility] [address] [place] [id number] [place] [address] 25867- 2954 Dec, Chronic post-traumatic stress disorder (PTSD) F43.12 and Panic disorder with agoraphobia F40.01 [facility] [address] [place] [id number] [place] [address] 56298- 7722 13 Dec, 2017 Low back pain M54.5 [facility] [address] [place] [id number] [place] [address] 66935- 9173 Dec, Type 2 diabetes mellitus with hyperglycemia E11.65 ; snf current use of insulin Z79.4 ; Low back pain M54.5 ; Other chronic pain G89.29 and Encounter for therapeutic drug level monitoring Z51.81 [facility] [address] [place] [id number] [place] [address] 28784- 5752 09 Dec, 2017 Coughing R05 [facility] [address] [place] [id number] [place] [address] 87009- 1810 09 Dec, 2017 [facility] [address] [place] [id number] [place] [address] [id number] 07 Dec, 2017 Dental examination Z01.20 [facility] [address] [place] [id number] [place] [address] 98536- 5834 Nov, Type 2 diabetes mellitus without complications E11.9 and Encounter for therapeutic drug level monitoring Z51.81 [facility] [address] [place] [address] 91489- 1364 Nov, [facility] [address] [place] [id number] [place] [address] 20146- 6744 Oct, Type 2 diabetes mellitus without complications E11.9 [facility] [address] [place] [address] 37468- 2435 Oct, Type 2 diabetes mellitus with hyperglycemia E11.65 [facility] [address] [place] [id number] [place] [address] [place] [address]- 8660 Aug, Type 2 diabetes mellitus without complications E11.9 [facility] [address] [place] [address] 17691- 0444 Aug, Type 2 diabetes mellitus without complications E11.9 ; Hypoglycemia E16.2 ; Lumbago M54.5 ; Stress incontinence of urine N39.3 and History of [place] (myocardial infarction) I25.2 [facility] [address] [place] [id number] [place] [address] 77007- 0286 Jun, [facility] [address] [place] [id number] [place] [address] 92536- 1342 May, [facility] [address] [place] [id number] [place] [address] 15905- 1494 Apr, Panic disorder with agoraphobia F40.01 [facility] [address] [place] [id number] [place] [address] 19858- 8558 Apr, Panic disorder with agoraphobia F40.01 [facility] [address], [place] [address]- 7229 Apr, [facility] [address] [place] [id number] [place] [address] 87352- 8317 March, Other chronic pain G89.29 [facility] [address], [place] [address]- 2306 March, [facility] [address], [place] [address]- 8561 March, [facility] [address], [place] [address]- 5444 March, [facility] [address] [address]- 1387 March, [facility] [address], [place] [address]- 3146 March, Type 2 diabetes mellitus without complications E11.9 [facility] [address] [place] [id number] [place] [address] 18265- 2604 March, Diarrhea, unspecified type R19.7 [place] [address] [place] [id number] [place] [address] 89186- 6885 March, Bipolar 2 disorder F31.81 ; Chronic post-traumatic stress disorder (PTSD) F43.12 and Type 2 diabetes mellitus with hyperglycemia E11.65 [place] [address] [place] [id number] [place] [address] 22591- 0337 March, [place] [address] [place] [id number] [place] [address] 96658- 2765 March, [place] [id number] [place] [address] 23275- 1633 March, Hypertension, benign I10 ; Type 2 diabetes mellitus with hyperglycemia E11.65 ; Hepatitis C B19.20 ; Gastritis and duodenitis K29.90 and Dysuria R30.0 [place] [address] [place] [id number] [place] [address] 01389- 5410 March, Hypertension, benign I10 ; Type 2 diabetes mellitus with hyperglycemia E11.65 ; Hepatitis C B19.20 ; Gastritis and duodenitis K29.90 and Dysuria R30.0 [place] [address] [place] [address] 55154- 3780 March, Panic disorder with agoraphobia F40.01 ; Chronic post- traumatic stress disorder (PTSD) F43.12 ; Epilepsy G40.909 and Bipolar I disorder with mood-congruent psychotic features F31.9 [place] [address] [place] [address] 65657- 6107 March, [place] [id number] [place] [address] 30968- 0102 March, Type 2 diabetes mellitus with hyperglycemia E11.65 [place] [address] [place] [id number] [place] [address] 97347- 1370 Jan, Bipolar I disorder with duy F31.10 [place] [id number] [place] [address] 51332- 5521 17 Jan, 2017 Bipolar 2 disorder F31.81 ; Chronic post-traumatic stress disorder (PTSD) F43.12 and Type 2 diabetes mellitus with hyperglycemia E11.65 [place] [address] [place] [address] 92906- 2929 17 Jan, 2017 [place] [address] [place] [id number] [place] [address] 75423- 8582 Jan, [place] [address] [place] [id number] [place] [address] 06425- 5669 14 Jan, 2017 Panic disorder with agoraphobia F40.01 [place] [address] [place] [id number] [place] [address] 62512- 3870 13 Jan, 2017 Panic disorder with agoraphobia F40.01 ; Bipolar I disorder with mood-congruent psychotic features F31.9 ; Chronic post-traumatic stress disorder (PTSD) F43.12 and Epilepsy G40.909 [place] [address] [place] [id number] [place] [address] 83337- 4403 Jan, [place] [address] [place] [id number] [place] [address] 42179- 4008 Jan, [place] [address] [place] [id number] [place] [address] 89851- 5098 Jan, Type 2 diabetes mellitus without complications E11.9 and Hypoglycemia E16.2 [place] [address] [place] [id number] [place] [address] 31775- 9364 Jan, Type 2 diabetes mellitus without complications E11.9 ; Primary insomnia F51.01 and Hypertension, benign I10 [place] [address] [place] [id number] [place] [address] 92346- 2624 Jan, [facility] [address] [place] [id number] [place] [address] [id number] Jan, [place] [address] [place] [id number] [place] [address] 38040- 5264 Dec, Type 2 diabetes mellitus with hyperglycemia E11.65 [facility] [address] [place] [address] 88848- 8926 Dec, [facility] [address] [id number] [place] [address] 38354- 8798 Dec, Bipolar 2 disorder F31.81 ; Panic disorder with agoraphobia F40.01 ; Chronic post-traumatic stress disorder (PTSD) F43.12 and Epilepsy G40.909 [facility] [address] [id number] [place] [address] 39969- 9879 Dec, [facility] [address] [place] [id number] [place] [address] 25494- 7589 Dec, [facility] [address] [id number] [place] [address] 91979- 7920 Dec, Bipolar 2 disorder F31.81 ; Panic disorder with agoraphobia F40.01 ; Chronic post-traumatic stress disorder (PTSD) F43.12 and Epilepsy G40.909 [facility] [id number] [place] [address] 31524- 4607 Dec, [facility] [address] [address] [id number] [place] [address] 37045- 9405 Dec, [facility] [id number] [place] [address] 46990- 0103 Dec, [facility] [address] [id number] [place] [address] 24117- 5279 Dec, Type 2 diabetes mellitus with hyperglycemia E11.65 ; snf current use of insulin Z79.4 and Lumbago M54.5 [facility] [address] [address] [id number] [place] [address] 26121- 0782 Dec, [facility] [id number] [place] [address] 01563- 0746 Dec, [facility] [id number] [place] [address] 24906- 6434 Dec, [facility] [address] [place] [address] 02162 -3182 Dec, Pain of left leg M79.605 and Pain in right leg M79.604 [facility] [id number] [place] [address] 34350- 0394 14 Dec, 2016 [place] [address] 93860- 4427 08 Dec, 2016 Type 2 diabetes mellitus with hyperglycemia E11.65 [place] [address] [id number] [place] [address] 62344- 3011 06 Dec, 2016 [place] [address] [id number] [place] [address] 97496- 6550 03 Dec, 2016 Type 2 diabetes mellitus with hyperglycemia E11.65 ; snf current use of insulin Z79.4 ; Vagina, candidiasis B37.3 and Other chronic pain G89.29 [place] [address] [id number] [place] [address] 49978- 2274 Nov, Panic disorder with agoraphobia F40.01 [place] [id number] [place] [address] 28352- 2346 Nov, [place] [id number] [place] [address] 93358- 0284 Nov, [place] [address] [id number] [place] [address] 86689- 7735 Nov, Hypoglycemia E16.2 [place] [address] [id number] [place] [address] 98504- 6296 Nov, [place] [address] 14791- 6703 Nov, [place] [address] [id number] [place] [address] 78611- [phone] Nov, [place] [address] [address]- [address]12 Nov, Type 2 diabetes mellitus with hyperglycemia E11.65 and 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 [place] [id number] [place] [address] 02584- 7882 Nov, Panic disorder with agoraphobia F40.01 ; Bipolar 2 disorder F31.81 ; Chronic post-traumatic stress disorder (PTSD) F43.12 and Epilepsy G40.909 [place] [id number] [place] [address] [phone]- 6332 Nov, Panic disorder with agoraphobia F40.01 [place] [id number] [place] [address] 19594- 2090 Oct, [place] [id number] [place] [address] 25579- 1043 Oct, [place] [id number] [place] [address] [phone]- 7222 Oct, Bipolar 2 disorder F31.81 ; Panic disorder with agoraphobia F40.01 and Mood disorder F39 [place] [id number] [place] [address] 24241- 6576 Oct, Diabetes E11.9 ; Type 2 diabetes mellitus with hyperglycemia E11.65 and snf current use of insulin Z79.4 [place] [address] [id number] [place] [address] 71176- 3279 Oct, [facility] [id number] [place] [address] 53182- 6359 Sep, [facility] [id number] [place] [address] 87643- 9168 Sep, Bipolar 2 disorder F31.81 and Mood disorder F39 [facility] [id number] [place] [address] 38711- 9015 Sep, [facility] [id number] [place] [address] 27746- 0588 Sep, Uncontrolled type 2 diabetes mellitus without complication, without long-term current use of insulin E11.65 [facility] [address] [address] 8787 Sep, [facility] [id number] [place] [address] 63980- 7028 Sep, [facility] [address] [address] 0828 Sep, [facility] [id number] [place] [address] 87372- 7253 Sep, [facility] [address] [place] [address] 84685- 1654 Sep, Bipolar 2 disorder F31.81 ; Chronic post-traumatic stress disorder (PTSD) F43.12 ; Panic disorder with agoraphobia F40.01 and Epilepsy G40.909 [facility] [address] [place] [address] 82406- 7053 Sep, Bipolar 2 disorder F31.81 ; PTSD (post-traumatic stress disorder) F43.10 and Panic disorder with agoraphobia F40.01 [facility] [address] [place] [address] 22159- 9130 Sep, [facility] [address] [place] [address] 61635- 3982 28 Aug, 2016 History of seizures Z87.898 ; Panic disorder with agoraphobia F40.01 and Bipolar 2 disorder F31.81 [facility] [address] [address] 7890 Aug, [facility] [address] [address] 4756 17 Aug, 2016 [facility] [id number] [place] [address] 35576- 5638 Aug, [facility] [address], [place] [address]- 6231 Aug, [facility] [id number] [place] [address] 68353- 6277 11 Aug, 2016 [facility] [id number] [place] [address] 92505- 0939 Aug, [facility] [id number] [place] [address] 62272- 1892 10 Aug, 2016 Hypoglycemia E16.2 and Bilateral impacted cerumen H61.23 [facility] [address] 82563- 4101 10 Aug, 2016 [facility] [id number] [place] [address] 48047- 3425 Jul, [facility] [id number] [place] [address] 47994- 4873 Jul, [facility] [id number] [place] [address] 12898- 3721 15 Jul, 2016 Bipolar 2 disorder F31.81 ; Panic disorder with agoraphobia F40.01 ; PTSD (post-traumatic stress disorder) F43.10 and Epilepsy G40.909 [facility] [id number] [place] [address] 85641- 5031 Jul, [facility] [id number] [place] [address] 90936- 3544 Jul, Type 2 diabetes mellitus without complications E11.9 and Coughing R05 [facility] [id number] [place] [address] 31389- 7910 Jul, [facility] [id number] [place] [address] 38130- 7688 Jun, [facility] [id number] [place] [address] 77861- 6034 Jun, Bipolar 2 disorder F31.81 ; PTSD (post-traumatic stress disorder) F43.10 and Panic disorder with agoraphobia F40.01 [facility] [id number] [place] [address] 29718- 2218 Jun, [facility] [address] [address]- 7458 Jun, [facility] [id number] [place] [address] 34401- 1301 Jun, [facility] [id number] [place] [address] 43309- 5712 Jun, Type 2 diabetes mellitus without complications E11.9 and COPD (chronic obstructive pulmonary disease) J44.9 [facility] [address] [place] [address] [id number] May, Dental examination Z01.20 and Dental caries K02.9 [facility] [id number] [place] [address] 42212- 7126 May, Bipolar 2 disorder F31.81 ; PTSD (post-traumatic stress disorder) F43.10 and Panic disorder with agoraphobia F40.01 [facility] [id number] [place] [address] 43030- 2467 May, Lumbago with sciatica, right side M54.41 ; Other chronic pain G89.29 and Uncontrolled type 2 diabetes mellitus without complication, without long-term current use of insulin E11.65 [facility] [id number] [place] [address] 02225- 7826 May, Chronic bronchitis, unspecified chronic bronchitis type J42 [facility] [id number] [place] [address] 28710- 3385 May, [facility] [id number] [place] [address] 65283- 9203 May, [facility] [id number] [place] [address] 37385- 2928 May, Chest pain, unspecified type R07.9 ; Tobacco use Z72.0 ; Type 2 diabetes mellitus without complications E11.9 ; Essential hypertension I10 ; Hyperlipidemia, unspecified hyperlipidemia type E78.5 ; Obesity (BMI 30- 39.9) E66.9 ; History of hypothyroidism Z86.39 ; Chronic obstructive pulmonary disease, unspecified COPD type J44.9 ; Anxiety F41.9 ; Bilateral claudication of lower limb I73.9 and Bipolar 2 disorder F31.81 [facility] [id number] [place] [address] 98921- 4147 05 May, 2016 Bipolar 2 disorder F31.81 ; Panic disorder with agoraphobia F40.01 and Tobacco abuse Z72.0 [facility] [id number] [place] [address] 49233- 4691 Apr, [facility] [id number] [place] [address] 56424- 8271 Apr, [facility] [id number] [place] [address] 86388- 8595 Apr, [facility] [id number] [place] [address] 62689- 2257 Apr, Bipolar 2 disorder F31.81 ; Panic disorder with agoraphobia F40.01 and PTSD (post-traumatic stress disorder) F43.10 [facility] [id number] [place] [address] 14523- 8336 Apr, Chronic bronchitis, unspecified chronic bronchitis type J42 ; Cervical neuritis M54.12 and Thoracic neuritis M54.14 [facility] [id number] [address]- 0974 Apr, [facility] [id number] [place] [address] 44402- 0190 Apr, Cervicalgia M54.2 [facility] [id number] [place] [address] 79851- 1771 Apr, Bipolar 2 disorder F31.81 ; Panic disorder with agoraphobia F40.01 and PTSD (post-traumatic stress disorder) F43.10 [facility] [id number] [place] [address] 47045 -9730 Apr, [facility] [address] [place] [address]3804 Apr, Cough R05 and Tobacco dependence F17.200 [facility] [id number] [place] [address] 05089- 2413 Apr, [facility] [id number] [place] [address] 11333- 6511 Apr, [facility] [id number] [place] [address] 35914- 0652 March, Bipolar 2 disorder F31.81 ; Panic disorder with agoraphobia F40.01 and Generalized anxiety disorder F41.1 [facility] [id number] [place] [address] 86520- 3517 March, Closed displaced fracture of fifth metatarsal bone of right foot with routine healing, subsequent encounter S92.351D [facility] [id number] [place] [address] 20153- 6517 March, Bronchitis J40 [facility] [id number] [place] [address] 53304- 6493 March, [facility] [id number] [place] [address] 58750- 6829 March, [facility] [id number] [place] [address] 00488- 4901 March, Foot pain, right M79.671 ; Cervicalgia M54.2 and 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 mellitus without complication, 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 [facility] [address] [place] [address] 71317- 6804 March, Fracture of fifth metatarsal bone of right foot S92.351A [facility] [id number] [place] [address] 26352- 8836 March, [facility] [address] [place] [address] 57964- 5240 Jan, Fracture of fifth metatarsal bone of right foot S92.351A [facility] [id number] [place] [address] 28481- 2622 Jan, Bipolar 2 disorder F31.81 ; PTSD (post-traumatic stress disorder) F43.10 ; Panic disorder with agoraphobia F40.01 and Epilepsy G40.909 [facility] [id number] [place] [address] 04904- 4049 Jan, History of [place] (myocardial infarction) I25.2 and History of high cholesterol Z86.39 [facility] [id number] [place] [address] 51263- 6316 Jan, Bipolar 2 disorder F31.81 ; Panic disorder with agoraphobia F40.01 ; Tobacco abuse Z72.0 and PTSD (post-traumatic stress disorder) F43.10 [facility] [id number] [place] [address] 83776- 4285 Jan, Fracture of fifth metatarsal bone of right foot S92.351A [facility] [address] 52231- 3243 Jan, [facility] [address] 26125- 5075 Jan, History of high cholesterol Z86.39 [facility] [id number] [place] [address] 12825- 2144 Jan, History of [place] (myocardial infarction) I25.2 [facility] [address] 70335- 6424 Jan, [facility] [id number] [place] [address] 97619- 7046 Dec, Back pain M54.9 ; Diabetes E11.9 ; Right knee pain M25.561 and Chest pain R07.9 [facility] [id number] [place] [address] 43185- 3209 Dec, [facility] [address] 74690- 0893 Dec, [facility] [address] [place] [address] 51442- 4724 Dec, Cervicalgia M54.2 [facility] [id number] [place] [address] 95680- 1666 Dec, Bipolar 2 disorder F31.81 ; PTSD (post-traumatic stress disorder) F43.10 ; Panic disorder with agoraphobia F40.01 and Epilepsy G40.909 [facility] [id number] [place] [address] 17816- 1523 Dec, Bipolar 2 disorder F31.81 ; PTSD (post-traumatic stress disorder) F43.10 and Panic disorder with agoraphobia F40.01 [facility] [id number] [place] [address] 62208- 2732 Dec, Diabetes E11.[address] 85955- 3458 Dec, [facility] [id number] [place] [address] 84363- 2107 Dec, Other chronic pain G89.29 ; Hepatitis C B19.20 and History of seizures Z87.898 [facility] [id number] [place] [address] 52039- 9635 Dec, [facility] [id number] [place] [address] 38925- 1053 Dec, Bipolar 2 disorder F31.81 and Other chronic pain G89.29 [facility] [id number] [place] [address] 64993- 5630 Dec, Cervicalgia M54.2 and Diabetes E11.9 [facility] [id number] [place] [address] 42512- 7337 Dec, [facility] [id number] [place] [address] 25892- 6566 Dec, [facility] [id number] [place] [address] 73275- 4055 Dec, [facility] [id number] [place] [address] 95859- 5715 Dec, [facility] [id number] [place] [address] 95985- 8983 Dec, Type 2 diabetes mellitus without complications E11.9 [facility] [address] 78309- 9801 Dec, [facility] [id number] [place] [address] 12240- 7519 Dec, History of seizures Z87.898 and Hepatitis C B19.20 [facility] [id number] [place] [address] 43816- 2896 Dec, Hepatitis C B19.20 [facility] [address] 18306- 9485 Dec, [facility] [id number] [place] [address] 98776- 4920 Dec, Cervicalgia M54.2 ; COPD (chronic obstructive pulmonary disease) J44.9 and Hepatitis C B19.20 [facility] [id number] [place] [address] 09210- 4705 Dec, Bipolar 2 disorder F31.81 ; History of hypertension Z86.79 ; History of anxiety Z86.59 ; Panic disorder with agoraphobia F40.01 and Epilepsy G40.909 [facility] [id number] [place] [address] 10360- 5653 Nov, [facility] [id number] [place] [address] 39612- 7763 Nov, [facility] [address] [place] [address] 32097- 0372 Nov, History of seizures Z87.898 ; OAB (overactive bladder) N32.81 ; Lumbago M54.5 ; Other chronic pain G89.29 ; Cervicalgia M54.2 ; Tobacco abuse Z72.0 ; Tobacco abuse counseling Z71.6 and Impaired fasting glucose R73.01 [facility] [id number] [place] [address] 48589- 2768 Nov, Bipolar 2 disorder F31.81 ; PTSD (post-traumatic stress disorder) F43.10 ; History of anxiety Z86.59 ; History of COPD Z87.09 ; Panic disorder with agoraphobia F40.01 and Moderate depressed bipolar I disorder F31.32 [facility] [address] [place] [address] 89632- 4614 12 Nov, 2015 PTSD (post-traumatic stress disorder) F43.10 [facility] [id number] [place] [address] [id number] Nov, Dental examination Z01.20 and Dental caries K02.[address] 51522- 3716 Nov, History of hypertension Z86.79 ; History of hypothyroidism Z86.39 ; History of high cholesterol Z86.39 ; History of COPD Z87.09 and Overactive bladder N32.81 [facility] [id number] [place] [address] 09579- 6578 Nov, Bipolar 2 disorder F31.81 and PTSD (post-traumatic stress disorder) F43.10 [facility] [id number] [place] [address] 23676- 4278 Nov, PTSD (post-traumatic stress disorder) F43.10 ; Panic disorder with agoraphobia F40.01 ; Epilepsy G40.909 and Moderate depressed bipolar I disorder F31.32 [facility] [id number] [place] [address] 04773- 3082 Nov, [facility] [address] 42156- 8540 Nov, [facility] [address] [place] [address]- 4876 Oct, [facility] [id number] [place] [address] 54061- 8576 Oct, Generalized anxiety disorder F41.1 ; Major depression, recurrent F33.9 and PTSD (post-traumatic stress disorder) F43.[address] 69274- 5780 Oct, Elevated fasting glucose R73.[address] 25787- 5860 Oct, Elevated fasting glucose R73.[address] 47225- 4641 Oct, History of COPD Z87.[address] 33919- 1259 Oct, General medical exam Z00.00 ; History of hypertension Z86.79 ; History of hypothyroidism Z86.39 ; History of hepatitis Z86.19 ; History of high cholesterol Z86.39 and History of seizures Z87.[address] 07750- 5580 Oct, General medical exam Z00.00 ; History of hypertension Z86.79 ; History of hypothyroidism Z86.39 ; Bipolar 2 disorder F31.81 ; PTSD ( post-traumatic stress disorder) F43.10 ; History of hepatitis Z86.19 ; History of high cholesterol Z86.39 ; History of anxiety Z86.59 ; History of seizures Z87.898 ; History of [place] (my[place] infarction) I25.2 and History of COPD Z87.[address] 97701- 4564 Oct, Generalized anxiety disorder F41.1 ; Depression F32.9 and PTSD (post-traumatic stress disorder) F43.10 [place] [id number] [place] [address] 04911- 9256 Jan, [facility] [address] [facility] [id number] [address]- 2546 Jan, [facility] [address] [facility] [id number] [address]- 2546 Jun, [facility] [address] [place] [id number] Jun, [facility] [address] [facility] [id number] [address]- 2546 May, [facility] [address] [facility] [id number] [address]- 2546 May, [facility] [address] [place] [id number] May, [facility] [address] [facility] [id number] [address] 2546 May, [place] [address] [place] [id number] May, [facility] [address] [facility] [id number] [address]- 2546 May, IMMUNIZATIONS No Known Immunizations SOCIAL HISTORY Never Assessed REASON FOR VISIT CT correction PLAN OF CARE VITAL SIGNS MEDICATIONS Unknown Medications RESULTS No Results PROCEDURES No Known procedures INSTRUCTIONS MEDICATIONS ADMINISTERED No Known Medications MEDICAL (GENERAL) HISTORY Type Description Date Medical History Hypothyroidism Medical History High cholesterol Medical History Hypertension Medical History Brain seizure Medical History Asthma Medical History COPD Medical History Hep C -2004 Medical History [place] x 2 last in 2009 Medical History PTSD (post-traumatic stress disorder) Medical History Colon Cancer 2016 Medical History diabites II Surgical History tonsillectomy 1985 Surgical History partial hysterectomy 2004 Surgical History appendectomy 2004 Hospitalization History Surgery(s) only Hospitalization History pneumonia x3 days Hospitalization History Heart cath with stint 05/15/2016 Hospitalization History Diverticulitis, N/V-[facility] 01/28/17
--- OUTSIDE RECORDS SUMMARY | 2019-01-26 07:49 | XMS REPORT ---
Author Author GERARDO KISER [facility] Address [address] [place] [address] Care Team Providers Care Roof Technician Name Role Phone MARGI GERARDO Unavailable PROBLEMS Type Condition ICD9-CM Code SUK51-IN Code Onset Dates Condition Status SNOMED Code Problem OAB (overactive bladder) N32.81 Active 467200105 Problem Epilepsy G40.909 Active 94641419 Problem Cervicalgia M54.2 Active 92023772 Problem Other chronic pain G89.29 Active 14222369 Problem Tobacco abuse Z72.0 Active 69489561 Problem Lumbago M54.5 Active 178123804 Problem Hepatitis C B19.20 Active 81980027 Problem COPD (chronic obstructive pulmonary disease) J44.9 Active 78889494 Problem Diabetes E11.9 Active 32509474 Problem Bipolar I disorder with duy F31.10 Active 90173867 Problem Type 2 diabetes mellitus without complications E11.9 Active 735859352 Problem Stress incontinence of urine N39.3 Active 23800952 Problem Bilateral claudication of lower limb I73.9 Active 265577723 Problem Seasonal allergic rhinitis due to other allergic trigger J30.89 Active 131751283 Problem Hyperlipidemia, unspecified hyperlipidemia type E78.5 Active 25160618 Problem Hypertension, unspecified type I10 Active 04547477 Problem Chronic tension-type headache, not intractable G44.229 Active 912912980 Problem 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 mellitus without complication, without long -term current use of insulin E11.9 Active 272650107 Problem Type 2 diabetes mellitus with hyperglycemia E11.65 Active 366316862 Problem Chronic post-traumatic stress disorder (PTSD) F43.12 Active 710819301 Problem History of hypothyroidism Z86.39 Active 106159530 Problem Hypoglycemia E16.2 Active 363311678 Problem El's esophageal ulceration K22.10 Active 634872056 Problem Bipolar affective disorder, currently depressed, mild F31.31 Active 285282569 Problem Irritable bowel syndrome with diarrhea K58.0 Active 835501595 Problem Stress incontinence N39.3 Active 32496665 Problem History of hypertension Z86.79 Active 467378752 Problem Uncontrolled type 2 diabetes mellitus without complication, without long-term current use of insulin E11.65 Active 736688871 Problem Panic disorder with agoraphobia F40.01 Active 21766220 Problem Type 2 diabetes mellitus with hyperglycemia E11.65 Active 339874620 Problem History of seizures Z87.898 Active 319083286 Problem halfway current use of insulin Z79.4 Active 193407967 Problem History of [place] (myocardial infarction) I25.2 Active 459219914 Problem Mood disorder F39 Active 88313372 Problem Bipolar 2 disorder F31.81 Active 93433672 Problem Gastritis and duodenitis K29.90 Active 107181016 Problem History of high cholesterol Z86.39 Active 171752639 Problem Bipolar I disorder with mood-congruent psychotic features F31.9 Active 009116771 Problem Hypertension, benign I10 Active 72276252 Problem Primary insomnia F51.01 Active 0301762 ALLERGIES No Information ENCOUNTERS Encounter Location Date Diagnosis [place] [address] [address] Jul, [facility] [address] [address] Jun, Type 2 diabetes mellitus with hyperglycemia E11.65 [facility] [address] [address]- [address] Jun, [facility] [address] [address] Jun, Type 2 diabetes mellitus with hyperglycemia E11.65 and El's esophageal ulceration K22.10 [facility] [address] [address]- [address] Jun, Type 2 diabetes mellitus with hyperglycemia E11.65 [facility] [address] [address]- [address] Jun, [facility] [address] [address] Jun, [facility] [address] [address] 14 Jun, 2018 Bipolar affective disorder, currently depressed, mild F31.31 ; Chronic post-traumatic stress disorder (PTSD) F43.12 and Panic disorder with agoraphobia F40.01 [facility] [address] [address] 14 Jun, 2018 [facility] [address] [place] [id number] [place] [address] 89764- 6030 13 Jun, 2018 [facility] [address] [place] [id number] [place] [address] 12342- 2709 Jun, Type 2 diabetes mellitus with hyperglycemia E11.65 [facility] [address] [place] [id number] [place] [address] 01037- 9015 Jun, Uncontrolled type 2 diabetes mellitus with hyperglycemia E11.65 [facility] [address] [place] [id number] [place] [address] 92550- 1772 Jun, [facility] [id number] [place] [address] 85501- 4439 May, Lumbago M54.5 [facility] [address] [id number] May, [facility] [address] [address] 9[address] May, [facility] [id number] [place] [address] 23187- 7965 May, [facility] [address] [address] 27[address] May, [facility] [address] [place] [id number] [place] [address] 01067- 6715 May, [facility] [address] [address] 9[address] May, [facility] [address] [place] [id number] [place] [address] 12726- 4102 May, [place] [id number] [place] [address] 13301- 9475 May, Lumbago M54.5 [place] [address] [place] [id number] [place] [address] 16349- 3971 May, [place] [address] [place] [id number] [place] [address] 83090- [address] Apr, [address] of the chest R93.8 [place] [address] [place] [id number] [place] [address] 39952- 5805 Apr, Bipolar 2 disorder F31.81 ; Chronic post-traumatic stress disorder (PTSD) F43.12 and Panic disorder with agoraphobia F40.01 [place] [address] [place] [id number] [place] [address] 79310- [address] Apr, [address] of the chest R93.8 [place] [address] [place] [id number] [place] [address] 93946- [address] Apr, [address] of the chest R93.8 [place] [address] [place] [id number] [place] [address] 68218- 5967 Apr, [place] [address] [place] [id number] [place] [address] 23259- 5084 Apr, Type 2 diabetes mellitus with hyperglycemia E11.65 [place] [address] [place] [id number] [place] [address] 95068- 4426 Apr, 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 mellitus without complication, without long-term current use of insulin E11.9 ; Watery eyes H04.203 ; Low back pain M54.5 ; Other chronic pain G89.29 ; Chronic tension-type headache, not intractable G44.229 ; Uncontrolled type 2 diabetes mellitus without complication , without long-term current use of insulin E11.65 and Bronchitis J40 [place] [address] [place] [id number] [place] [address] 20739- 9588 Apr, [place] [address] [place] [id number] [place] [address] 20389- 4164 Apr, Lumbago M54.5 [facility] [id number] [place] [address] 15998- 0206 March, [facility] [id number] [place] [address] 07939 -1168 March, Cough R05 ; Pneumonia due to infectious organism, unspecified laterality, unspecified part of lung J18.9 and Non-intractable vomiting with nausea, unspecified vomiting type R11.2 [facility] [address] [place] [id number] [place] [address] 52541- 2321 March, Bronchitis J40 [facility] [address] [place] [id number] [place] [address] 56549- 8478 March, [place] [address] [place] [id number] [place] [address] 51440- 8877 March, El's esophageal ulceration K22.10 and Type 2 diabetes mellitus with hyperglycemia E11.65 [facility] [address] [place] [id number] [place] [address] 51103- 9497 March, Panic disorder with agoraphobia F40.01 ; Chronic post- traumatic stress disorder (PTSD) F43.12 and Bipolar 2 disorder F31.81 [facility] [id number] [place] [address] 03343- 2882 March, Type 2 diabetes mellitus with hyperglycemia E11.65 [facility] [address] [place] [id number] [place] [address] 88858- 8061 March, [facility] [address] [place] [id number] [place] [address] 98338- 4572 March, Lumbago M54.5 [facility] [address] [place] [id number] [place] [address] 63861- 2006 March, [facility] [id number] [place] [address] 03463- 8656 March, Irritable bowel syndrome with diarrhea K58.0 ; Primary insomnia F51.01 ; Type 2 diabetes mellitus with hyperglycemia E11.65 and halfway current use of insulin Z79.4 [facility] [address] [place] [id number] [place] [address] 31589- 0664 March, [facility] [address] [place] [id number] [place] [address] 37482- 4899 Jan, [facility] [address] [place] [id number] [place] [address] 24598- 1084 Jan, [facility] [address] [place] [id number] [place] [address] 66778- 1112 Jan, [facility] [address] [place] [id number] [place] [address] 38139- 4363 Jan, [place] [address] [place] [id number] [place] [address] 77839- 1542 Jan, Dizziness R42 [place] [address] [place] [id number] [place] [address] 18870- 5935 Jan, Bipolar affective disorder, currently depressed, mild F31.31 ; Panic disorder with agoraphobia F40.01 and Chronic post-traumatic stress disorder (PTSD) F43.12 [place] [address] [place] [id number] [place] [address] 48173- 6858 Jan, Dizziness R42 [place] [address] [place] [id number] [place] [address] 18915- 2782 Jan, Chest pain, unspecified type R07.9 ; Exertional dyspnea R06.09 ; Hypertension, unspecified type I10 and Hyperlipidemia, unspecified hyperlipidemia type E78.5 [place] [address] [place] [id number] [place] [address] 65241- 5533 Jan, [place] [address] [place] [id number] [place] [address] 47641- 6462 Jan, Lumbago M54.5 [place] [address] [place] [id number] [place] [address] 56729- 5080 Jan, El's esophageal ulceration K22.10 ; Blister (nonthermal ) of oral cavity, initial encounter S00.522A ; Local infection of the skin and subcutaneous tissue, unspecified L08.9 ; Type 2 diabetes mellitus with hyperglycemia E11.65 ; halfway current use of insulin Z79.4 and Stress incontinence N39.3 [facility] [address] [place] [id number] [place] [address] 98401- 5327 27 Dec, 2017 [place] [address] [address]- 1293 27 Dec, 2017 [place] [address] [place] [id number] [place] [address] 27236- 7879 19 Dec, 2017 [facility] [address] [id number] 16 Dec, 2017 Dental examination Z01.20 [place] [address] [place] [id number] [place] [address] 06516- 9566 15 Dec, 2017 Acute pain of right knee M25.561 [place] [address] [place] [id number] [place] [address] 81696- 4732 14 Dec, 2017 [place] [address] [place] [id number] [place] [address] 87453- 4300 14 Dec, 2017 [facility] [address] [place] [id number] [place] [address] 92440- 4694 14 Dec, 2017 Lumbago M54.5 ; Acute pain of right knee M25.561 and Seasonal allergic rhinitis due to other allergic trigger J30.89 [place] [address] [place] [id number] [place] [address] 45123- 1006 Dec, Type 2 diabetes mellitus with hyperglycemia E11.65 [place] [address] [place] [id number] [place] [address] 02647- 1093 Dec, [facility] [address] [place] [id number] [place] [address] 54553- 0913 Dec, [facility] [address] [place] [id number] [place] [address] 11373- 2904 Dec, [facility] [id number] [place] [address] 46230- 7539 Dec, [facility] [address] [place] [id number] [place] [address] 12464- 4780 Dec, Chronic post-traumatic stress disorder (PTSD) F43.12 and Panic disorder with agoraphobia F40.01 [facility] [address] [place] [id number] [place] [address] 11680- 4174 13 Dec, 2017 Low back pain M54.5 [facility] [address] [place] [id number] [place] [address] 75729- 4887 Dec, Type 2 diabetes mellitus with hyperglycemia E11.65 ; halfway current use of insulin Z79.4 ; Low back pain M54.5 ; Other chronic pain G89.29 and Encounter for therapeutic drug level monitoring Z51.81 [facility] [address] [place] [id number] [place] [address] 53728- 5208 09 Dec, 2017 Coughing R05 [facility] [address] [place] [id number] [place] [address] 07418- 6343 09 Dec, 2017 [facility] [address] [place] [id number] [place] [address] [id number] 07 Dec, 2017 Dental examination Z01.20 [facility] [address] [place] [id number] [place] [address] 56214- 6083 Nov, Type 2 diabetes mellitus without complications E11.9 and Encounter for therapeutic drug level monitoring Z51.81 [facility] [id number] [place] [address] 03772- 1237 Nov, [facility] [address] [place] [id number] [place] [address] 90044- 2135 Oct, Type 2 diabetes mellitus without complications E11.9 [facility] [id number] [place] [address] 67882- 0043 Oct, Type 2 diabetes mellitus with hyperglycemia E11.65 [facility] [address] [place] [id number] [place] [address] [place] [address]- 7015 Aug, Type 2 diabetes mellitus without complications E11.9 [facility] [id number] [place] [address] 47501- 8059 Aug, Type 2 diabetes mellitus without complications E11.9 ; Hypoglycemia E16.2 ; Lumbago M54.5 ; Stress incontinence of urine N39.3 and History of TX (myocardial infarction) I25.2 [facility] [address] [place] [id number] [place] [address] 41205- 9326 Jun, [facility] [address] [place] [id number] [place] [address] 94858- 7706 May, [facility] [address] [place] [id number] [place] [address] 45493- 1236 Apr, Panic disorder with agoraphobia F40.01 [facility] [address] [place] [id number] [place] [address] 29762- 4441 Apr, Panic disorder with agoraphobia F40.01 [facility] [address], [place] [address]- 2595 Apr, [facility] [address] [place] [id number] [place] [address] 13727- 0691 March, Other chronic pain G89.29 [facility] [address], [place] [address]- 9865 March, [facility] [address], [place] [address]- 7344 March, [facility] [address], [place] [address]- 1642 March, [facility] [address] [place] [id number] [address]- 9667 March, [facility] [address], [place] [address]- 0645 March, Type 2 diabetes mellitus without complications E11.9 [facility] [address] [place] [id number] [place] [address] 26910- 7297 March, Diarrhea, unspecified type R19.7 [place] [address] [place] [id number] [place] [address] 73647- 7953 March, Bipolar 2 disorder F31.81 ; Chronic post-traumatic stress disorder (PTSD) F43.12 and Type 2 diabetes mellitus with hyperglycemia E11.65 [place] [address] [place] [id number] [place] [address] 37165- 3376 March, [place] [address] [place] [id number] [place] [address] 21052- 2091 March, [place] [id number] [place] [address] 18184- 5451 March, Hypertension, benign I10 ; Type 2 diabetes mellitus with hyperglycemia E11.65 ; Hepatitis C B19.20 ; Gastritis and duodenitis K29.90 and Dysuria R30.0 [place] [address] [place] [id number] [place] [address] 98424- 2352 March, Hypertension, benign I10 ; Type 2 diabetes mellitus with hyperglycemia E11.65 ; Hepatitis C B19.20 ; Gastritis and duodenitis K29.90 and Dysuria R30.0 [place] [address] [place] [address] 24689- 8962 March, Panic disorder with agoraphobia F40.01 ; Chronic post- traumatic stress disorder (PTSD) F43.12 ; Epilepsy G40.909 and Bipolar I disorder with mood-congruent psychotic features F31.9 [place] [id number] [place] [address] 91914- 6150 March, [place] [id number] [place] [address] 15749- 9200 March, Type 2 diabetes mellitus with hyperglycemia E11.65 [place] [address] [place] [id number] [place] [address] 83257- 2616 Jan, Bipolar I disorder with duy F31.10 [place] [id number] [place] [address] 48228- 8272 17 Jan, 2017 Bipolar 2 disorder F31.81 ; Chronic post-traumatic stress disorder (PTSD) F43.12 and Type 2 diabetes mellitus with hyperglycemia E11.65 [place] [id number] [place] [address] 50850- 2799 17 Jan, 2017 [place] [address] [place] [id number] [place] [address] 16436- 8616 Jan, [place] [address] [place] [id number] [place] [address] 80592- 5847 14 Jan, 2017 Panic disorder with agoraphobia F40.01 [place] [address] [place] [id number] [place] [address] 62329- 2326 13 Jan, 2017 Panic disorder with agoraphobia F40.01 ; Bipolar I disorder with mood-congruent psychotic features F31.9 ; Chronic post-traumatic stress disorder (PTSD) F43.12 and Epilepsy G40.909 [place] [address] [place] [id number] [place] [address] 86063- 1202 Jan, [place] [address] [place] [id number] [place] [address] 91482- 3580 Jan, [place] [address] [place] [id number] [place] [address] 53850- 3253 Jan, Type 2 diabetes mellitus without complications E11.9 and Hypoglycemia E16.2 [place] [address] [place] [id number] [place] [address] 84403- 4383 Jan, Type 2 diabetes mellitus without complications E11.9 ; Primary insomnia F51.01 and Hypertension, benign I10 [place] [address] [place] [id number] [place] [address] 27377- 4585 Jan, [facility] [address] [place] [id number] [place] [address] [id number] Jan, [place] [address] [place] [id number] [place] [address] 55846- 3082 Dec, Type 2 diabetes mellitus with hyperglycemia E11.65 [facility] [id number] [place] [address] 62865- 2719 Dec, [facility] [address] [place] [id number] [place] [address] 23978- 1122 Dec, Bipolar 2 disorder F31.81 ; Panic disorder with agoraphobia F40.01 ; Chronic post-traumatic stress disorder (PTSD) F43.12 and Epilepsy G40.909 [facility] [address] [place] [id number] [place] [address] 78696- 7425 Dec, [facility] [address] [place] [id number] [place] [address] 95679- 8753 Dec, [facility] [address] [place] [id number] [place] [address] 01733- 5203 Dec, Bipolar 2 disorder F31.81 ; Panic disorder with agoraphobia F40.01 ; Chronic post-traumatic stress disorder (PTSD) F43.12 and Epilepsy G40.909 [facility] [address] [place] [id number] [place] [address] 87071- 1908 Dec, [facility] [address] [place] [id number] [place] [address] 29197- 6443 Dec, [facility] [address] [place] [id number] [place] [address] 55773- 8532 Dec, [facility] [address] [place] [id number] [place] [address] 48913- 3046 Dec, Type 2 diabetes mellitus with hyperglycemia E11.65 ; halfway current use of insulin Z79.4 and Lumbago M54.5 [facility] [address] [place] [id number] [place] [address] 85886- 9797 Dec, [facility] [address] [place] [id number] [place] [address] 26422- 4599 Dec, [facility] [address] [place] [id number] [place] [address] 50201- 2131 Dec, [facility] [id number] [place] [address] 04378 -3540 Dec, Pain of left leg M79.605 and Pain in right leg M79.604 [facility] [address] [place] [id number] [place] [address] 37238- 8272 14 Dec, 2016 [place] [address] 70572- 6253 08 Dec, 2016 Type 2 diabetes mellitus with hyperglycemia E11.65 [place] [address] [place] [id number] [place] [address] 60714- 4921 06 Dec, 2016 [place] [address] [place] [id number] [place] [address] 19271- 1380 03 Dec, 2016 Type 2 diabetes mellitus with hyperglycemia E11.65 ; halfway current use of insulin Z79.4 ; Vagina, candidiasis B37.3 and Other chronic pain G89.29 [place] [address] [place] [id number] [place] [address] 05677- 5072 Nov, Panic disorder with agoraphobia F40.01 [place] [id number] [place] [address] 45454- 2346 Nov, [place] [address] [place] [id number] [place] [address] 90280- 6997 Nov, [place] [address] [place] [id number] [place] [address] 10941- 8932 Nov, Hypoglycemia E16.2 [place] [address] [place] [id number] [place] [address] 83276- 5054 Nov, [place] [address] 46931- 6953 Nov, [place] [address] [place] [id number] [place] [address] 08899- 9630 Nov, [place] [address] 35153- 1380 Nov, Type 2 diabetes mellitus with hyperglycemia E11.65 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 [place] [id number] [place] [address] 17871- 4888 Nov, Panic disorder with agoraphobia F40.01 ; Bipolar 2 disorder F31.81 ; Chronic post-traumatic stress disorder (PTSD) F43.12 and Epilepsy G40.909 [place] [address] [place] [id number] [place] [address] 29065- 6242 Nov, Panic disorder with agoraphobia F40.01 [place] [address] [place] [id number] [place] [address] 22374- 5704 Oct, [place] [address] [place] [id number] [place] [address] 27265- 4047 Oct, [place] [address] [place] [id number] [place] [address] 61704- 9755 Oct, Bipolar 2 disorder F31.81 ; Panic disorder with agoraphobia F40.01 and Mood disorder F39 [place] [address] [place] [id number] [place] [address] 32850- 5751 Oct, Diabetes E11.9 ; Type 2 diabetes mellitus with hyperglycemia E11.65 and halfway current use of insulin Z79.4 [place] [address] [place] [id number] [place] [address] 12945- 4695 Oct, [place] [address] [place] [id number] [place] [address] 95178- 0720 Sep, [facility] [id number] [place] [address] 86703- 5252 Sep, Bipolar 2 disorder F31.81 and Mood disorder F39 [place] [address] [place] [id number] [place] [address] 81891- 5857 Sep, [place] [address] [place] [id number] [place] [address] 71653- 6232 Sep, Uncontrolled type 2 diabetes mellitus without complication, without long-term current use of insulin E11.65 [facility] [id number] [address] Sep, [facility] [id number] [place] [address] 40974- 1032 Sep, [facility] [id number] [address] Sep, [facility] [id number] [place] [address] 41178- 2325 Sep, [facility] [id number] [place] [address] 44080- 2820 Sep, Bipolar 2 disorder F31.81 ; Chronic post-traumatic stress disorder (PTSD) F43.12 ; Panic disorder with agoraphobia F40.01 and Epilepsy G40.909 [facility] [id number] [place] [address] 74487- 1199 Sep, Bipolar 2 disorder F31.81 ; PTSD (post-traumatic stress disorder) F43.10 and Panic disorder with agoraphobia F40.01 [facility] [id number] [place] [address] 04733- 4439 Sep, [facility] [id number] [place] [address] 98831- 3583 28 Aug, 2016 History of seizures Z87.898 ; Panic disorder with agoraphobia F40.01 and Bipolar 2 disorder F31.81 [facility] [id number] [address] 6[address] Aug, [facility] [id number] [address] 9591 17 Aug, 2016 [facility] [id number] [place] [address] 21986- 4795 Aug, [facility] [address] [address] 5973 Aug, [facility] [id number] [place] [address] 13581- 9358 11 Aug, 2016 [facility] [id number] [place] [address] 21368- 3686 Aug, [facility] [id number] [place] [address] 41831- 9260 10 Aug, 2016 Hypoglycemia E16.2 and Bilateral impacted cerumen H61.23 [facility] [address] 10013- 0702 10 Aug, 2016 [facility] [id number] [place] [address] 91580- 1245 Jul, [facility] [id number] [place] [address] 56320- 5531 Jul, [facility] [id number] [place] [address] 10914- 3741 15 Jul, 2016 Bipolar 2 disorder F31.81 ; Panic disorder with agoraphobia F40.01 ; PTSD (post-traumatic stress disorder) F43.10 and Epilepsy G40.909 [facility] [id number] [place] [address] 57680- 6189 Jul, [facility] [id number] [place] [address] 96145- 4070 Jul, Type 2 diabetes mellitus without complications E11.9 and Coughing R05 [facility] [id number] [place] [address] 35166- 2978 Jul, [facility] [id number] [place] [address] 75948- 0307 Jun, [facility] [id number] [place] [address] 51366- 0458 Jun, Bipolar 2 disorder F31.81 ; PTSD (post-traumatic stress disorder) F43.10 and Panic disorder with agoraphobia F40.01 [facility] [id number] [place] [address] 76838- 9907 Jun, [facility] [address] [address]- 5340 Jun, [facility] [id number] [place] [address] 82734- 2607 Jun, [facility] [id number] [place] [address] 73311- 7997 Jun, Type 2 diabetes mellitus without complications E11.9 and COPD (chronic obstructive pulmonary disease) J44.9 [facility] [id number] [place] [address] [id number] May, Dental examination Z01.20 and Dental caries K02.9 [facility] [id number] [place] [address] 58034- 5828 May, Bipolar 2 disorder F31.81 ; PTSD (post-traumatic stress disorder) F43.10 and Panic disorder with agoraphobia F40.01 [facility] [id number] [place] [address] 98336- 5420 May, Lumbago with sciatica, right side M54.41 ; Other chronic pain G89.29 and Uncontrolled type 2 diabetes mellitus without complication, without long-term current use of insulin E11.65 [facility] [id number] [place] [address] 00743- 0357 May, Chronic bronchitis, unspecified chronic bronchitis type J42 [facility] [id number] [place] [address] 77212- 9044 May, [facility] [id number] [place] [address] 74728- 9064 May, [facility] [id number] [place] [address] 40501- 9424 May, Chest pain, unspecified type R07.9 ; [...] and Bipolar 2 disorder F31.81 [facility] [id number] [place] [address] 51194- 1032 05 May, 2016 Bipolar 2 disorder F31.81 ; Panic disorder with agoraphobia F40.01 and Tobacco abuse Z72.0 [facility] [id number] [place] [address] 49372- 2677 Apr, [facility] [id number] [place] [address] 80508- 2208 Apr, [facility] [id number] [place] [address] 88038- 1702 Apr, [facility] [id number] [place] [address] 60144- 3888 Apr, Bipolar 2 disorder F31.81 ; Panic disorder with agoraphobia F40.01 and PTSD (post-traumatic stress disorder) F43.10 [facility] [id number] [place] [address] 86686- 2674 Apr, Chronic bronchitis, unspecified chronic bronchitis type J42 ; Cervical neuritis M54.12 and Thoracic neuritis M54.14 [facility] [id number] [address]- 0254 Apr, [facility] [id number] [place] [address] 75651- 4219 Apr, Cervicalgia M54.2 [facility] [id number] [place] [address] 14043- 7672 Apr, Bipolar 2 disorder F31.81 ; Panic disorder with agoraphobia F40.01 and PTSD (post-traumatic stress disorder) F43.10 [facility] [id number] [place] [address] 75596 -3847 Apr, [facility] [address] [place] [address] Apr, Cough R05 and Tobacco dependence F17.200 [facility] [id number] [place] [address] 77227- 4392 Apr, [facility] [id number] [place] [address] 01647- 6659 Apr, [facility] [id number] [place] [address] 02912- 4740 March, Bipolar 2 disorder F31.81 ; Panic disorder with agoraphobia F40.01 and Generalized anxiety disorder F41.1 [facility] [id number] [place] [address] 71044- 9688 March, Closed displaced fracture of fifth metatarsal bone of right foot with routine healing, subsequent encounter S92.351D [facility] [id number] [place] [address] 17154- 6118 March, Bronchitis J40 [facility] [id number] [place] [address] 75960- 9431 March, [facility] [id number] [place] [address] 26496- 1785 March, [facility] [id number] [place] [address] 94368- 9753 March, Foot pain, right M79.671 ; Cervicalgia M54.2 and 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 mellitus without complication, 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 [facility] [id number] [place] [address] 57252- 6060 March, Fracture of fifth metatarsal bone of right foot S92.351A [facility] [id number] [place] [address] 58266- 9777 March, [facility] [id number] [place] [address] 03080- 0164 Jan, Fracture of fifth metatarsal bone of right foot S92.351A [facility] [id number] [place] [address] 75838- 2095 Jan, Bipolar 2 disorder F31.81 ; PTSD (post-traumatic stress disorder) F43.10 ; Panic disorder with agoraphobia F40.01 and Epilepsy G40.909 [facility] [id number] [place] [address] 07726- 6683 Jan, History of [place] (myocardial infarction) I25.2 and History of high cholesterol Z86.39 [facility] [id number] [place] [address] 05337- 2321 Jan, Bipolar 2 disorder F31.81 ; Panic disorder with agoraphobia F40.01 ; Tobacco abuse Z72.0 and PTSD (post-traumatic stress disorder) F43.10 [facility] [id number] [place] [address] 81087- 0228 Jan, Fracture of fifth metatarsal bone of right foot S92.351A [facility] [address] 01422- 1405 Jan, [facility] [address] 15543- 3479 Jan, History of high cholesterol Z86.39 [facility] [id number] [place] [address] 28151- 7255 Jan, History of [place] (myocardial infarction) I25.2 [facility] [address] 09975- 9109 Jan, [facility] [id number] [place] [address] 18614- 4727 Dec, Back pain M54.9 ; Diabetes E11.9 ; Right knee pain M25.561 and Chest pain R07.9 [facility] [id number] [place] [address] 79078- 6234 Dec, [facility] [address] 26728- 0958 Dec, [facility] [id number] [place] [address] 88902- 7615 Dec, Cervicalgia M54.2 [facility] [id number] [place] [address] 02613- 0564 Dec, Bipolar 2 disorder F31.81 ; PTSD (post-traumatic stress disorder) F43.10 ; Panic disorder with agoraphobia F40.01 and Epilepsy G40.909 [facility] [id number] [place] [address] 05731- 9037 Dec, Bipolar 2 disorder F31.81 ; PTSD (post-traumatic stress disorder) F43.10 and Panic disorder with agoraphobia F40.01 [facility] [id number] [place] [address] 47059- 0795 Dec, Diabetes E11.[address] 78783- 9711 Dec, [facility] [id number] [place] [address] 59953- 6248 Dec, Other chronic pain G89.29 ; Hepatitis C B19.20 and History of seizures Z87.898 [facility] [id number] [place] [address] 16817- 5414 Dec, [facility] [id number] [place] [address] 47082- 6001 Dec, Bipolar 2 disorder F31.81 and Other chronic pain G89.29 [facility] [id number] [place] [address] 78134- 4059 Dec, Cervicalgia M54.2 and Diabetes E11.9 [facility] [id number] [place] [address] 81553- 3585 Dec, [facility] [id number] [place] [address] 34716- 4723 Dec, [facility] [id number] [place] [address] 47103- 1995 Dec, [facility] [id number] [place] [address] 14370- 2120 Dec, [facility] [id number] [place] [address] 90906- 4650 Dec, Type 2 diabetes mellitus without complications E11.9 [facility] [address] 30282- 2717 Dec, [facility] [id number] [place] [address] 55905- 6423 Dec, History of seizures Z87.898 and Hepatitis C B19.20 [facility] [id number] [place] [address] 11792- 9647 Dec, Hepatitis C B19.20 [facility] [address] 30305- 6120 Dec, [facility] [id number] [place] [address] 41832- 0346 Dec, Cervicalgia M54.2 ; COPD (chronic obstructive pulmonary disease) J44.9 and Hepatitis C B19.20 [facility] [id number] [place] [address] 72048- 8930 Dec, Bipolar 2 disorder F31.81 ; History of hypertension Z86.79 ; History of anxiety Z86.59 ; Panic disorder with agoraphobia F40.01 and Epilepsy G40.909 [facility] [id number] [place] [address] 40079- 4511 Nov, [facility] [id number] [place] [address] 59168- 6647 Nov, [facility] [id number] [place] [address] 61217- 1389 Nov, History of seizures Z87.898 ; OAB (overactive bladder) N32.81 ; Lumbago M54.5 ; Other chronic pain G89.29 ; Cervicalgia M54.2 ; Tobacco abuse Z72.0 ; Tobacco abuse counseling Z71.6 and Impaired fasting glucose R73.01 [facility] [id number] [place] [address] 01273- 9763 Nov, Bipolar 2 disorder F31.81 ; PTSD (post-traumatic stress disorder) F43.10 ; History of anxiety Z86.59 ; History of COPD Z87.09 ; Panic disorder with agoraphobia F40.01 and Moderate depressed bipolar I disorder F31.32 [facility] [address] [place] [address] 10881- 7246 12 Nov, 2015 PTSD (post-traumatic stress disorder) F43.10 [facility] [id number] [place] [address] [id number] Nov, Dental examination Z01.20 and Dental caries K02.[address] 34091- 1034 Nov, History of hypertension Z86.79 ; History of hypothyroidism Z86.39 ; History of high cholesterol Z86.39 ; History of COPD Z87.09 and Overactive bladder N32.81 [facility] [id number] [place] [address] 95562- 4432 Nov, Bipolar 2 disorder F31.81 and PTSD (post-traumatic stress disorder) F43.10 [facility] [id number] [place] [address] 74393- 0253 Nov, PTSD (post-traumatic stress disorder) F43.10 ; Panic disorder with agoraphobia F40.01 ; Epilepsy G40.909 and Moderate depressed bipolar I disorder F31.32 [facility] [id number] [place] [address] 91479- 8966 Nov, [facility] [address] 49547- 4208 Nov, [facility] [address] [place] [address]- 8097 Oct, [facility] [id number] [place] [address] 69704- 4926 Oct, Generalized anxiety disorder F41.1 ; Major depression, recurrent F33.9 and PTSD (post-traumatic stress disorder) F43.[address] 02328- 1746 Oct, Elevated fasting glucose R73.[address] 15344- 3806 Oct, Elevated fasting glucose R73.[address] 17455- 5825 Oct, History of COPD Z87.[address] 29712- 4968 Oct, General medical exam Z00.00 ; History of hypertension Z86.79 ; History of hypothyroidism Z86.39 ; History of hepatitis Z86.19 ; History of high cholesterol Z86.39 and History of seizures Z87.[address] 51264- 4063 Oct, General medical exam Z00.00 ; History of hypertension Z86.79 ; History of hypothyroidism Z86.39 ; Bipolar 2 disorder F31.81 ; PTSD ( post-traumatic stress disorder) F43.10 ; History of hepatitis Z86.19 ; History of high cholesterol Z86.39 ; History of anxiety Z86.59 ; History of seizures Z87.898 ; History of [place] (myocardial infarction) I25.2 and History of COPD Z87.[address] 45642- 4765 Oct, Generalized anxiety disorder F41.1 ; Depression F32.9 and PTSD (post-traumatic stress disorder) F43.10 [id number] [place] [address] 05082- 7212 Jan, [facility] [address] [facility] [id number] [address]- 2546 Jan, [facility] [address] [facility] [id number] [address] 2546 Jun, [address] [place] [id number] Jun, [facility] [address] [facility] [id number] [address]- 2546 May, [facility] [id number] [address]- 2546 May, [address] [place] [id number] May, [facility] [address] [facility] [id number] [address]- 4396 May, [address] [place] [id number] May, [facility] [address] [facility] [id number] [address]- 2546 May, IMMUNIZATIONS No Known Immunizations SOCIAL HISTORY Never Assessed REASON FOR VISIT Prior Authorization Request/ PLAN OF CARE VITAL SIGNS MEDICATIONS Unknown Medications RESULTS No Results PROCEDURES No Known procedures INSTRUCTIONS MEDICATIONS ADMINISTERED No Known Medications MEDICAL (GENERAL) HISTORY Type Description Date Medical History Hypothyroidism Medical History High cholesterol Medical History Hypertension Medical History Brain seizure Medical History Asthma Medical History COPD Medical History Hep C -2004 Medical History TX x 2 last in 2009 Medical History PTSD (post-traumatic stress disorder) Medical History Colon Cancer 2016 Medical History diabites II Surgical History tonsillectomy 1985 Surgical History partial hysterectomy 2004 Surgical History appendectomy 2004 Hospitalization History Surgery(s) only Hospitalization History pneumonia x3 days Hospitalization History Heart cath with stint 05/15/2016 Hospitalization History Diverticulitis, N/V-[facility] 01/28/17
--- OUTSIDE RECORDS SUMMARY | 2019-01-26 07:50 | XMS REPORT ---
Author Author GERARDO KISER [facility] Address [address] [place] [address] Care Team Providers Care Skills Instructor Name Role Phone MARGI GERARDO Unavailable PROBLEMS Type Condition ICD9-CM Code RHS91-WS Code Onset Dates Condition Status SNOMED Code Problem OAB (overactive bladder) N32.81 Active 019255710 Problem Epilepsy G40.909 Active 51640896 Problem Cervicalgia M54.2 Active 78138276 Problem Other chronic pain G89.29 Active 32407474 Problem Tobacco abuse Z72.0 Active 71885085 Problem Lumbago M54.5 Active 465061408 Problem Hepatitis C B19.20 Active 77306709 Problem COPD (chronic obstructive pulmonary disease) J44.9 Active 05962808 Problem Diabetes E11.9 Active 70870948 Problem Bipolar I disorder with duy F31.10 Active 81097331 Problem Type 2 diabetes mellitus without complications E11.9 Active 117848028 Problem Stress incontinence of urine N39.3 Active 03734897 Problem Bilateral claudication of lower limb I73.9 Active 123320358 Problem Seasonal allergic rhinitis due to other allergic trigger J30.89 Active 132305270 Problem Hyperlipidemia, unspecified hyperlipidemia type E78.5 Active 19033332 Problem Hypertension, unspecified type I10 Active 19271546 Problem Chronic tension-type headache, not intractable G44.229 Active 962885852 Problem 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 mellitus without complication, without long -term current use of insulin E11.9 Active 092168861 Problem Type 2 diabetes mellitus with hyperglycemia E11.65 Active 501036757 Problem Chronic post-traumatic stress disorder (PTSD) F43.12 Active 381328148 Problem History of hypothyroidism Z86.39 Active 075510465 Problem Hypoglycemia E16.2 Active 784822088 Problem El's esophageal ulceration K22.10 Active 686134407 Problem Bipolar affective disorder, currently depressed, mild F31.31 Active 693404225 Problem Irritable bowel syndrome with diarrhea K58.0 Active 572186338 Problem Stress incontinence N39.3 Active 33512279 Problem History of hypertension Z86.79 Active 403254417 Problem Uncontrolled type 2 diabetes mellitus without complication, without long-term current use of insulin E11.65 Active 206550304 Problem Panic disorder with agoraphobia F40.01 Active 65342244 Problem Type 2 diabetes mellitus with hyperglycemia E11.65 Active 577532751 Problem History of seizures Z87.898 Active 565387028 Problem jail current use of insulin Z79.4 Active 181008851 Problem History of NV (myocardial infarction) I25.2 Active 928918734 Problem Mood disorder F39 Active 95586398 Problem Bipolar 2 disorder F31.81 Active 89265119 Problem Gastritis and duodenitis K29.90 Active 325115020 Problem History of high cholesterol Z86.39 Active 551662743 Problem Bipolar I disorder with mood-congruent psychotic features F31.9 Active 721337512 Problem Hypertension, benign I10 Active 43271964 Problem Primary insomnia F51.01 Active 7995167 ALLERGIES No Information ENCOUNTERS Encounter Location Date Diagnosis [facility] [id number] [place] [address] 74197- 5767 11 Jul, 2018 [facility] [id number] [place] [address] 00726- 4891 Jun, [facility] [id number] [place] [address] 88438- 3284 Jun, Type 2 diabetes mellitus with hyperglycemia E11.65 and El's esophageal ulceration K22.10 [facility] [id number] [place] [address] 84391- 7139 Jun, Type 2 diabetes mellitus with hyperglycemia E11.65 [facility] [id number] [place] [address] 10275- 0512 17 Jun, 2018 [facility] [id number] [place] [address] 63530- 1400 Jun, [facility] [id number] [place] [address] 86011- 4496 14 Jun, 2018 Bipolar affective disorder, currently depressed, mild F31.31 ; Chronic post-traumatic stress disorder (PTSD) F43.12 and Panic disorder with agoraphobia F40.01 [facility] [id number] [address] 4893 14 Jun, 2018 [facility] [id number] [address] 5822 Jun, [facility] [address], [place] [address] 3546 Jun, Type 2 diabetes mellitus with hyperglycemia E11.65 [facility] [id number] [address]- 6680 Jun, Uncontrolled type 2 diabetes mellitus with hyperglycemia E11.65 [facility] [id number] [address]- 8753 Jun, [facility] [address], [place] [address] 6740 May, Lumbago M54.5 [facility] [address] [id number] May, [facility] [address], [place] [address]- 8991 May, [facility] [id number] [address]- 6630 May, [facility] [address], [place] [address]- 1020 May, [facility] [id number], [place] [address]- 7963 May, [facility] [id number], [place] [address]- 9772 May, [facility] [id number], [place] [address]- 9242 May, [facility] [address] [place] [address]- 9649 May, Lumbago M54.5 [facility] [id number] [place] [address] 77266- 8232 May, [facility] [id number] [place] [address] 92329- [address], [address] of the chest R93.8 [facility] [id number] [place] [address] 32502- 5741 Apr, Bipolar 2 disorder F31.81 ; Chronic post-traumatic stress disorder (PTSD) F43.12 and Panic disorder with agoraphobia F40.01 [facility] [id number] [place] [address] 92657- [address] Apr, [address] of the chest R93.8 [facility] [id number] [place] [address] 03925- [address] Apr, [address] of the chest R93.8 [facility] [id number] [place] [address] 75249- 6894 Apr, [facility] [id number] [place] [address] 84364- 1592 Apr, Type 2 diabetes mellitus with hyperglycemia E11.65 [facility] [id number] [place] [address] 91266- 9162 Apr, 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 mellitus without complication, without long-term current use of insulin E11.9 ; Watery eyes H04.203 ; Low back pain M54.5 ; Other chronic pain G89.29 ; Chronic tension-type headache, not intractable G44.229 ; Uncontrolled type 2 diabetes mellitus without complication , without long-term current use of insulin E11.65 and Bronchitis J40 [facility] [id number] [place] [address] 12960- 7445 Apr, [facility] [id number] [place] [address] 22122- 5044 Apr, Lumbago M54.5 [facility] [id number] [place] [address] 14953- 0693 March, [facility] [id number] [place] [address] 16650 -0570 March, Cough R05 ; Pneumonia due to infectious organism, unspecified laterality, unspecified part of lung J18.9 and Non-intractable vomiting with nausea, unspecified vomiting type R11.2 [facility] [id number] [place] [address] 22927- 9381 March, Bronchitis J40 [address] [facility] [address] 25363- 5195 March, [facility] [address] 99493- 8577 March, El's esophageal ulceration K22.10 and Type 2 diabetes mellitus with hyperglycemia E11.65 [facility] [id number] [place] [address] 44248- 7609 March, Panic disorder with agoraphobia F40.01 ; Chronic post- traumatic stress disorder (PTSD) F43.12 and Bipolar 2 disorder F31.81 [facility] [id number] [place] [address] 34177- 3533 March, Type 2 diabetes mellitus with hyperglycemia E11.65 [facility] [id number] [place] [address] 68883- 3949 March, [facility] [id number] [place] [address] 98386- 7054 March, Lumbago M54.5 [facility] [id number] [place] [address] 24913- 0580 March, [facility] [address] 12355- 7761 March, Irritable bowel syndrome with diarrhea K58.0 ; Primary insomnia F51.01 ; Type 2 diabetes mellitus with hyperglycemia E11.65 and 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 accountant current use of insulin Z79.4 [facility] [id number] [place] [address] 77902- 8069 March, [facility] [id number] [place] [address] 88595- 3797 Jan, [facility] [id number] [place] [address] 23129- 0016 Jan, [facility] [id number] [place] [address] 14852- 3797 Jan, [facility] [id number] [place] [address] 90353- 7595 Jan, [facility] [id number] [place] [address] 48943- 0140 Jan, Dizziness R42 [facility] [id number] [place] [address] 01197- 4962 Jan, Bipolar affective disorder, currently depressed, mild F31.31 ; Panic disorder with agoraphobia F40.01 and Chronic post-traumatic stress disorder (PTSD) F43.12 [facility] [id number] [place] [address] 31946- 6151 Jan, Dizziness R42 [facility] [id number] [place] [address] 08947- 2773 Jan, Chest pain, unspecified type R07.9 ; Exertional dyspnea R06.09 ; Hypertension, unspecified type I10 and Hyperlipidemia, unspecified hyperlipidemia type E78.5 [facility] [id number] [place] [address] 66400- 7831 Jan, [facility] [id number] [place] [address] 20441- 3502 Jan, Lumbago M54.5 [facility] [id number] [place] [address] 21228- 7936 Jan, El's esophageal ulceration K22.10 ; Blister (nonthermal ) of oral cavity, initial encounter S00.522A ; Local infection of the skin and subcutaneous tissue, unspecified L08.9 ; Type 2 diabetes mellitus with hyperglycemia E11.65 ; 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 accountant current use of insulin Z79.4 and Stress incontinence N39.3 [facility] [id number] [place] [address] 95044- 8098 27 Dec, 2017 [facility] [id number] [place] [address] 45384- 9630 27 Dec, 2017 [facility] [id number] [place] [address] 79414- 0636 19 Dec, 2017 [facility] [id number] [place] [address] [id number] 16 Dec, 2017 Dental examination Z01.20 [facility] [id number] [place] [address] 47962- 9734 15 Dec, 2017 Acute pain of right knee M25.561 [facility] [id number] [place] [address] 01091- 0522 14 Dec, 2017 [facility] [id number] [place] [address] 16392- 3533 14 Dec, 2017 [facility] [id number] [place] [address] 43193- 7748 14 Dec, 2017 Lumbago M54.5 ; Acute pain of right knee M25.561 and Seasonal allergic rhinitis due to other allergic trigger J30.89 [facility] [address], [place] [address]- 7786 Dec, Type 2 diabetes mellitus with hyperglycemia E11.65 [facility] [id number] [place] [address] 92543- 5818 Dec, [facility] [id number] [place] [address] 50694- 3984 Dec, [facility] [id number] [place] [address] 03130- 8855 23 Dec, 2017 [facility] [address], [place] [address]- 9940 Dec, [facility] [id number] [place] [address] 10175- 8091 15 Dec, 2017 Chronic post-traumatic stress disorder (PTSD) F43.12 and Panic disorder with agoraphobia F40.01 [facility] [id number] [place] [address] 62408- 7470 13 Dec, 2017 Low back pain M54.5 [facility] [id number] [place] [address] 65118- 0336 12 Dec, 2017 Type 2 diabetes mellitus with hyperglycemia E11.65 ; jail current use of insulin Z79.4 ; Low back pain M54.5 ; Encounter for therapeutic drug level monitoring Z51.81 and Other chronic pain G89.29 [facility] [id number] [place] [address] 26793- 7920 09 Dec, 2017 Coughing R05 [facility] [id number] [place] [address] 48840- 3460 09 Dec, 2017 [facility] [id number] [place] [address] [id number] 07 Dec, 2017 Dental examination Z01.20 [facility] [address] 90019- 1997 Nov, Type 2 diabetes mellitus without complications E11.9 and Encounter for therapeutic drug level monitoring Z51.81 [facility] [id number] [place] [address] 74809- 7902 Nov, [facility] [id number] [place] [address] 57972- 3951 Oct, Type 2 diabetes mellitus without complications E11.9 [facility] [id number] [place] [address] 62769- 7080 Oct, Type 2 diabetes mellitus with hyperglycemia E11.65 [facility] [id number] [place] [address] 79511- 3839 Aug, Type 2 diabetes mellitus without complications E11.9 [facility] [id number] [place] [address] [place] [address]- 6794 Aug, Type 2 diabetes mellitus without complications E11.9 ; Hypoglycemia E16.2 ; Lumbago M54.5 ; Stress incontinence of urine N39.3 and History of NV (myocardial infarction) I25.2 [facility] [address], [place] [address]- 4349 Jun, [facility] [id number] [place] [address] 61470- 3817 May, [facility] [id number] [place] [address] 54548- 7532 Apr, Panic disorder with agoraphobia F40.01 [facility] [id number] [place] [address] 81937- 9305 Apr, Panic disorder with agoraphobia F40.01 [facility] [id number] [place] [address] 59904- 9626 Apr, [facility] [id number] [place] [address] 38015- 5976 March, Other chronic pain G89.29 [facility] [id number] [place] [address] 92491- 5590 March, [facility] [address], [place] [address]- 0212 March, [facility] [address], [place] [address]- 9239 March, [facility] [id number] [place] [address] 13682- 2672 March, [facility] [id number] [place] [address] 10149- 4998 March, Type 2 diabetes mellitus without complications E11.9 [facility] [address], [place] [address]- 2500 March, Diarrhea, unspecified type R19.7 [facility] [id number] [place] [address]- 6684 March, Bipolar 2 disorder F31.81 ; Chronic post-traumatic stress disorder (PTSD) F43.12 and Type 2 diabetes mellitus with hyperglycemia E11.65 [facility] [address], [place] [address]- 0619 March, [facility] [id number] [place] [address] 13260- 7847 March, [facility] [id number] [place] [address] 85551- 5866 March, Hypertension, benign I10 ; Type 2 diabetes mellitus with hyperglycemia E11.65 ; Hepatitis C B19.20 ; Gastritis and duodenitis K29.90 and Dysuria R30.0 [facility] [address], [place] [address]- 8478 March, Hypertension, benign I10 ; Type 2 diabetes mellitus with hyperglycemia E11.65 ; Hepatitis C B19.20 ; Gastritis and duodenitis K29.90 and Dysuria R30.0 [facility] [address], [place] [address]- 4666 March, Panic disorder with agoraphobia F40.01 ; Chronic post- traumatic stress disorder (PTSD) F43.12 ; Epilepsy G40.909 and Bipolar I disorder with mood-congruent psychotic features F31.9 [facility] [address], [place] [address]- 9914 March, [facility] [address], [place] [address]- 8915 March, Type 2 diabetes mellitus with hyperglycemia E11.65 [facility] [id number] [place] [address] 42191- 7549 Jan, Bipolar I disorder with duy F31.10 [facility] [address], [place] [address]- 1729 Jan, Bipolar 2 disorder F31.81 ; Chronic post-traumatic stress disorder (PTSD) F43.12 and Type 2 diabetes mellitus with hyperglycemia E11.65 [facility] [address], [place] [address]- 7969 17 Jan, 2017 [facility] [id number] [place] [address] 96872- 5550 17 Jan, 2017 [facility] [id number] [place] [address] 40350- 5776 14 Jan, 2017 Panic disorder with agoraphobia F40.01 [facility] [id number] [place] [address] 97808- 5237 13 Jan, 2017 Panic disorder with agoraphobia F40.01 ; Bipolar I disorder with mood-congruent psychotic features F31.9 ; Chronic post-traumatic stress disorder (PTSD) F43.12 and Epilepsy G40.909 [facility] [id number] [place] [address] 04497- 4814 12 Jan, 2017 [facility] [id number] [place] [address] 19966- 2306 11 Jan, 2017 [facility] [id number] [place] [address] 88668- 0538 10 Jan, 2017 Type 2 diabetes mellitus without complications E11.9 and Hypoglycemia E16.2 [facility] [id number] [place] [address] 14077- 3564 07 Jan, 2017 Type 2 diabetes mellitus without complications E11.9 ; Primary insomnia F51.01 and Hypertension, benign I10 [facility] [id number] [place] [address] 45428- 7725 06 Jan, 2017 [facility] [id number] [place] [address] [id number] Jan, [facility] [id number] [place] [address] 10382- 9967 31 Dec, 2016 Type 2 diabetes mellitus with hyperglycemia E11.65 [facility] [id number] [place] [address] 42521- 8449 27 Dec, 2016 [facility] [id number] [place] [address] 88108- 0343 Dec, Bipolar 2 disorder F31.81 ; Panic disorder with agoraphobia F40.01 ; Chronic post-traumatic stress disorder (PTSD) F43.12 and Epilepsy G40.909 [facility] [id number] [place] [address] 21057- 5445 Dec, [facility] [id number] [place] [address] 72623- 1361 Dec, [facility] [id number] [place] [address] 60535- 3477 Dec, Bipolar 2 disorder F31.81 ; Panic disorder with agoraphobia F40.01 ; Chronic post-traumatic stress disorder (PTSD) F43.12 and Epilepsy G40.909 [facility] [id number] [place] [address] 49220- 6371 Dec, [facility] [id number] [place] [address] 53913- 7809 Dec, [facility] [id number] [place] [address] 51433- 0012 Dec, [facility] [id number] [place] [address] 49641- 8264 Dec, Type 2 diabetes mellitus with hyperglycemia E11.65 ; 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 accountant current use of insulin Z79.4 and Lumbago M54.5 [facility] [id number] [place] [address] 65462- 7599 Dec, [facility] [id number] [place] [address] 51412- 4988 Dec, [facility] [id number] [place] [address] 13455- 7275 Dec, [facility] [id number] [place] [address] 07297 -5716 Dec, Pain of left leg M79.605 and Pain in right leg M79.604 [facility] [id number] [place] [address] 67086- 0706 14 Dec, 2016 [facility] [id number] [place] [address] 49253- 8934 08 Dec, 2016 Type 2 diabetes mellitus with hyperglycemia E11.65 [facility] [id number] [place] [address] 63615- 4459 06 Dec, 2016 [facility] [id number] [place] [address] 54250- 3123 Dec, Type 2 diabetes mellitus with hyperglycemia E11.65 ; 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 accountant current use of insulin Z79.4 ; Vagina, candidiasis B37.3 and Other chronic pain G89.29 [facility] [id number] [place] [address] 65280- 7436 Nov, Panic disorder with agoraphobia F40.01 [facility] [id number] [place] [address] 89508- 7480 Nov, [facility] [id number] [place] [address] 98290- 5518 Nov, [facility] [id number] [place] [address] 89798- 9303 Nov, Hypoglycemia E16.2 [facility] [id number] [place] [address] 75408- 1004 Nov, [facility] [id number] [place] [address] 17384- 8175 Nov, [facility] [id number] [place] [address] 88600- 0732 Nov, [facility] [id number] [place] [address] 78613- 4376 Nov, Type 2 diabetes mellitus with hyperglycemia E11.65 and 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 accountant current use of insulin Z79.4 [facility] [id number] [place] [address] 78542- 4760 Nov, Panic disorder with agoraphobia F40.01 ; Bipolar 2 disorder F31.81 ; Chronic post-traumatic stress disorder (PTSD) F43.12 and Epilepsy G40.909 [facility] [id number] [place] [address] 89181- 9643 Nov, Panic disorder with agoraphobia F40.01 [facility] [id number] [place] [address] 76623- 6525 Oct, [facility] [id number] [place] [address] 71083- 9922 Oct, [facility] [id number] [place] [address] 09631- 7770 Oct, Bipolar 2 disorder F31.81 ; Panic disorder with agoraphobia F40.01 and Mood disorder F39 [facility] [id number] [place] [address] [id number] [id number] Oct, Diabetes E11.9 ; Type 2 diabetes mellitus with hyperglycemia E11.65 and 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 accountant current use of insulin Z79.4 [address] [place] [id number] [place] [address] [phone] Oct, [facility] [id number] [place] [address] [phone] Sep, [facility] [id number] [place] [address] [phone] Sep, Bipolar 2 disorder F31.81 and Mood disorder F39 [facility] [id number] [place] [address] [phone] Sep, [facility] [address] [place] [id number] [place] [address] 38360- 6281 Sep, Uncontrolled type 2 diabetes mellitus without complication, without long-term current use of insulin E11.65 [place] [id number] [place] [address] 74293- 8539 Sep, [place] [id number] [address] 7[address] 18 Sep, 2016 [facility] [id number] [place] [address] 16514- 0268 Sep, [facility] [id number] [place] [address] 89550- 6134 Sep, [facility] [id number] [place] [address] 97700- 5985 Sep, Bipolar 2 disorder F31.81 ; Chronic post-traumatic stress disorder (PTSD) F43.12 ; Panic disorder with agoraphobia F40.01 and Epilepsy G40.909 [facility] [id number] [place] [address] 56784- 8390 Sep, Bipolar 2 disorder F31.81 ; PTSD (post-traumatic stress disorder) F43.10 and Panic disorder with agoraphobia F40.01 [facility] [id number] [place] [address] 75519- 4948 Sep, [facility] [id number] [place] [address] 00294- 6625 28 Aug, 2016 History of seizures Z87.898 ; Panic disorder with agoraphobia F40.01 and Bipolar 2 disorder F31.81 [facility] [id number], [place] [address] 1996 Aug, [facility] [id number] [place] [address] 58510- 8381 17 Aug, 2016 [facility] [id number] [place] [address] 99792- 7412 Aug, [facility] [id number] [place] [address] 07854- 5048 Aug, [facility] [address], [place] [address] 7892 Aug, [facility] [id number] [place] [address] 85245- 4871 Aug, [facility] [id number] [place] [address] 26437- 7537 Aug, Hypoglycemia E16.2 and Bilateral impacted cerumen H61.23 [facility] [id number] [place] [address] 38133- 9177 Aug, [facility] [id number] [place] [address] 79126- 5739 Jul, [facility] [id number] [place] [address] 44650- 7173 Jul, [place] [id number] [place] [address] 95158- 8807 Jul, Bipolar 2 disorder F31.81 ; Panic disorder with agoraphobia F40.01 ; PTSD (post-traumatic stress disorder) F43.10 and Epilepsy G40.909 [place] [id number] [place] [address] 91278- 2421 Jul, [facility] [id number] [place] [address] 80524- 4008 Jul, Type 2 diabetes mellitus without complications E11.9 and Coughing R05 [place] [id number] [place] [address] 09036- 9785 Jul, [facility] [id number] [place] [address] 78211- 6801 Jun, [facility] [id number] [place] [address] 01173- 6057 Jun, Bipolar 2 disorder F31.81 ; PTSD (post-traumatic stress disorder) F43.10 and Panic disorder with agoraphobia F40.01 [facility] [id number] [place] [address] 60173- 4073 Jun, [facility] [id number] [place] [address] 16239- 2712 Jun, [place] [address], [place] [address]- 2214 Jun, [place] [address] [id number] [place] [address] 50877- 9471 Jun, Type 2 diabetes mellitus without complications E11.9 and COPD (chronic obstructive pulmonary disease) J44.9 [facility] [id number] [place] [address] [id number] May, Dental examination Z01.20 and Dental caries K02.9 [place] [address] [address] [id number] [place] [address] 76896- 8294 May, Bipolar 2 disorder F31.81 ; PTSD (post-traumatic stress disorder) F43.10 and Panic disorder with agoraphobia F40.01 [place] [id number] [place] [address] 28174- 8026 May, Lumbago with sciatica, right side M54.41 ; Other chronic pain G89.29 and Uncontrolled type 2 diabetes mellitus without complication, without long-term current use of insulin E11.65 [place] [id number] [place] [address] 35662- 6022 May, Chronic bronchitis, unspecified chronic bronchitis type J42 [place] [address] [id number] [place] [address] 93302- 0859 May, [place] [id number] [place] [address] 03853- 4508 May, [place] [address] [id number] [place] [address] 08377- 1774 May, Chest pain, unspecified type R07.9 ; [...] and Bipolar 2 disorder F31.81 [place] [address] [id number] [place] [address] 80788- 6018 05 May, 2016 Bipolar 2 disorder F31.81 ; Panic disorder with agoraphobia F40.01 and Tobacco abuse Z72.0 [place] [id number] [place] [address] 62429- 5108 Apr, [place] [address] [id number] [place] [address] 35887- 5659 Apr, [place] [id number] [place] [address] 25137- 3680 Apr, [place] [address] 14051- 8334 Apr, Bipolar 2 disorder F31.81 ; Panic disorder with agoraphobia F40.01 and PTSD (post-traumatic stress disorder) F43.10 [place] [id number] [place] [address] 49101- 5071 Apr, Chronic bronchitis, unspecified chronic bronchitis type J42 ; Cervical neuritis M54.12 and Thoracic neuritis M54.14 [place] [id number] [place] [address] 06586- 4533 Apr, [place] [id number] [place] [address] 12307- 7126 15 Apr, 2016 Cervicalgia M54.2 [place] [id number] [place] [address] 22501- 8762 14 Apr, 2016 Bipolar 2 disorder F31.81 ; Panic disorder with agoraphobia F40.01 and PTSD (post-traumatic stress disorder) F43.10 [facility] [address] [place] [id number] [place] [address] 40723 -8583 13 Apr, 2016 [facility] [address] [place] [id number] [place] [address] 07039 -7486 09 Apr, 2016 Cough R05 and Tobacco dependence F17.200 [place] [address] [place] [address] [id number] [address]- 5522 Apr, [place] [address] [address] [id number] [place] [address] 17148- 6935 Apr, [place] [id number] [place] [address] 43007- 2235 March, Bipolar 2 disorder F31.81 ; Panic disorder with agoraphobia F40.01 and Generalized anxiety disorder F41.1 [place] [address] [address] [id number] [place] [address] 36541- 9459 March, Closed displaced fracture of fifth metatarsal bone of right foot with routine healing, subsequent encounter S92.351D [place] [address] [place] [address] [id number] [place] [address] 58548- 3840 March, Bronchitis J40 [place] [address] [id number] [place] [address] 14896- 9029 March, [place] [address] [address] [id number] [place] [address] 42434- 3940 March, [place] [address] [address] [id number] [place] [address] 72121- 1843 March, Foot pain, right M79.671 ; Cervicalgia M54.2 and 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 mellitus without complication, unspecified half-way insulin use status E11.9 [place] [id number] [place] [address] 87119- 0667 March, Fracture of fifth metatarsal bone of right foot S92.351A [place] [address] [place] [id number] [place] [address] 51381- 7191 March, [place] [address] [address] [id number] [place] [address] 68716- 9752 Jan, Fracture of fifth metatarsal bone of right foot S92.351A [place] [address] [place] [address] [id number] [place] [address] 60772- 5268 Jan, Bipolar 2 disorder F31.81 ; PTSD (post-traumatic stress disorder) F43.10 ; Panic disorder with agoraphobia F40.01 and Epilepsy G40.909 [place] [address] 84318- 0373 Jan, History of NV (myocardial infarction) I25.2 and History of high cholesterol Z86.39 [place] [address] 76425- 5145 Jan, Bipolar 2 disorder F31.81 ; Panic disorder with agoraphobia F40.01 ; Tobacco abuse Z72.0 and PTSD (post-traumatic stress disorder) F43.10 [place] [address] 68131- 4652 Jan, Fracture of fifth metatarsal bone of right foot S92.351A [place] [address] 19820- 8413 Jan, [place] [address] 45168- 0626 Jan, History of high cholesterol Z86.39 [place] [address] 85278- 5056 Jan, History of NV (myocardial infarction) I25.2 [place] [address] 02483- 0644 Jan, [place] [address] 23671- 6965 Dec, Back pain M54.9 ; Diabetes E11.9 ; Right knee pain M25.561 and Chest pain R07.9 [place] [address] 48356- 6736 Dec, [place] [address] 09223- 2388 Dec, [place] [address] 69116- 8198 Dec, Cervicalgia M54.2 [facility] [id number] [place] [address] 44378- 2066 Dec, Bipolar 2 disorder F31.81 ; PTSD (post-traumatic stress disorder) F43.10 ; Panic disorder with agoraphobia F40.01 and Epilepsy G40.909 [facility] [id number] [place] [address] 48397- 4536 Dec, Bipolar 2 disorder F31.81 ; PTSD (post-traumatic stress disorder) F43.10 and Panic disorder with agoraphobia F40.01 [facility] [id number] [place] [address] 21977- 7250 Dec, Diabetes E11.9 [place] [address] 37078- 9541 Dec, [place] [address] 82844- 9428 Dec, Other chronic pain G89.29 ; Hepatitis C B19.20 and History of seizures Z87.898 [facility] [id number] [place] [address] 95957- 2803 Dec, [facility] [address] 35968- 8254 Dec, Bipolar 2 disorder F31.81 and Other chronic pain G89.29 [facility] [address] [id number] [place] [address] 58259 2542 Dec, Cervicalgia M54.2 and Diabetes E11.9 [facility] [address] [id number] [place] [address] 65372 2542 Dec, [facility] [address] 66878- 0064 Dec, [facility] [address] [place] [id number] [place] [address] 24015- 8790 Dec, [facility] [address] 99861- 0634 16 Dec, 2015 [place] [address] 98455- 1960 Dec, Type 2 diabetes mellitus without complications E11.9 [place] [address] 66334- 8850 10 Dec, 2015 [place] [address] 49228- 4830 Dec, History of seizures Z87.898 and Hepatitis C B19.20 [place] [address] 84515- 1107 Dec, Hepatitis C B19.20 [place] [address] 17610- 5791 Dec, [place] [address] 12680- 5070 Dec, Cervicalgia M54.2 ; COPD (chronic obstructive pulmonary disease) J44.9 and Hepatitis C B19.20 [place] [address] 78924- 9501 Dec, Bipolar 2 disorder F31.81 ; History of hypertension Z86.79 ; History of anxiety Z86.59 ; Panic disorder with agoraphobia F40.01 and Epilepsy G40.909 [place] [address] [place] [id number] [place] [address] 68953- 5541 Nov, [place] [address] 70607- 9012 Nov, [place] [address] 06516- 6651 Nov, History of seizures Z87.898 ; OAB (overactive bladder) N32.81 ; Lumbago M54.5 ; Other chronic pain G89.29 ; Cervicalgia M54.2 ; Tobacco abuse Z72.0 ; Tobacco abuse counseling Z71.6 and Impaired fasting glucose R73.01 [facility] [id number] [place] [address] 40208- 5430 14 Nov, 2015 Bipolar 2 disorder F31.81 ; PTSD (post-traumatic stress disorder) F43.10 ; History of anxiety Z86.59 ; History of COPD Z87.09 ; Panic disorder with agoraphobia F40.01 and Moderate depressed bipolar I disorder F31.32 [place] [address] 50661- 3706 12 Nov, 2015 PTSD (post-traumatic stress disorder) F43.10 [facility] [address] [id number] 11 Nov, 2015 Dental examination Z01.20 and Dental caries K02.9 [place] [address] [place] [id number] [place] [address] 49122- 7342 08 Nov, 2015 History of hypertension Z86.79 ; History of hypothyroidism Z86.39 ; History of high cholesterol Z86.39 ; History of COPD Z87.09 and Overactive bladder N32.81 [place] [address] [place] [id number] [place] [address] 72525- 1418 Nov, Bipolar 2 disorder F31.81 and PTSD (post-traumatic stress disorder) F43.10 [place] [address] [place] [id number] [place] [address] 84566- 9623 Nov, PTSD (post-traumatic stress disorder) F43.10 ; Panic disorder with agoraphobia F40.01 ; Epilepsy G40.909 and Moderate depressed bipolar I disorder F31.32 [place] [address] [place] [id number] [place] [address] 41903- 3586 Nov, [place] [address] 63953- 5878 Nov, [place] [address] [place] [id number] [place] [address] 61864- 4744 Oct, [place] [address] 58063- 4527 Oct, Generalized anxiety disorder F41.1 ; Major depression, recurrent F33.9 and PTSD (post-traumatic stress disorder) F43.10 [place] [address] [place] [address] 11059- 8967 Oct, Elevated fasting glucose R73.01 [place] [id number] [place] [address] 65766- 8136 Oct, Elevated fasting glucose R73.01 [place] [address] [place] [id number] [place] [address] 84384- 7707 Oct, History of COPD Z87.09 [place] [id number] [place] [address] 24451- 9932 Oct, General medical exam Z00.00 ; History of hypertension Z86.79 ; History of hypothyroidism Z86.39 ; History of hepatitis Z86.19 ; History of high cholesterol Z86.39 and History of seizures Z87.898 [address] [place] [address] 76631- 4531 Oct, General medical exam Z00.00 ; History of hypertension Z86.79 ; History of hypothyroidism Z86.39 ; Bipolar 2 disorder F31.81 ; PTSD ( post-traumatic stress disorder) F43.10 ; History of hepatitis Z86.19 ; History of high cholesterol Z86.39 ; History of anxiety Z86.59 ; History of seizures Z87.898 ; History of NV (myocardial infarction) I25.2 and History of COPD Z87.09 [place] [id number] [place] [address] 36138- 4770 Oct, Generalized anxiety disorder F41.1 ; Depression F32.9 and PTSD (post-traumatic stress disorder) F43.10 [address] [place] [address] 72825- 8687 Jan, [id number] [place] [address] 32857- 0358 Jan, [place] [id number] [place] [address]- 2546 Jun, [facility] [address] [place] [id number] Jun, [facility] [address] [facility] [id number] [address]- 2546 May, [facility] [address] [facility] [id number] [address]- 2546 May, [facility] [address] [place] [id number] May, [facility] [address] [facility] [id number] [address] 2546 May, [facility] [address] [place] [id number] May, [facility] [address] [facility] [id number] [address] May, IMMUNIZATIONS No Known Immunizations SOCIAL HISTORY Never Assessed REASON FOR VISIT CT PLAN OF CARE VITAL SIGNS MEDICATIONS Unknown Medications RESULTS No Results PROCEDURES No Known procedures INSTRUCTIONS MEDICATIONS ADMINISTERED No Known Medications MEDICAL (GENERAL) HISTORY Type Description Date Medical History Hypothyroidism Medical History High cholesterol Medical History Hypertension Medical History Brain seizure Medical History Asthma Medical History COPD Medical History Hep C -2004 Medical History NV x 2 last in [...]
--- OUTSIDE RECORDS SUMMARY | 2019-01-26 07:50 | XMS REPORT ---
Author Author GERARDO KISER [facility] Address [address] [place] [address] Care Team Providers [employer] Name Role Phone MARGI GERARDO Unavailable PROBLEMS Type Condition ICD9-CM Code HUQ28-UO Code Onset Dates Condition Status SNOMED Code Problem OAB (overactive bladder) N32.81 Active 213285941 Problem Epilepsy G40.909 Active 55514604 Problem Cervicalgia M54.2 Active 03916852 Problem Other chronic pain G89.29 Active 68663390 Problem Tobacco abuse Z72.0 Active 35432793 Problem Lumbago M54.5 Active 820222415 Problem Hepatitis C B19.20 Active 28312738 Problem COPD (chronic obstructive pulmonary disease) J44.9 Active 26820505 Problem Diabetes E11.9 Active 10715064 Problem Bipolar I disorder with duy F31.10 Active 77442655 Problem Type 2 diabetes mellitus without complications E11.9 Active 419079726 Problem Stress incontinence of urine N39.3 Active 01402769 Problem Bilateral claudication of lower limb I73.9 Active 309581635 Problem Seasonal allergic rhinitis due to other allergic trigger J30.89 Active 827097652 Problem Hyperlipidemia, unspecified hyperlipidemia type E78.5 Active 86175913 Problem Hypertension, unspecified type I10 Active 01687246 Problem Chronic tension-type headache, not intractable G44.229 Active 619479210 Problem 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 mellitus without complication, without long -term current use of insulin E11.9 Active 171507787 Problem Type 2 diabetes mellitus with hyperglycemia E11.65 Active 532147871 Problem Chronic post-traumatic stress disorder (PTSD) F43.12 Active 598450731 Problem History of hypothyroidism Z86.39 Active 541108686 Problem Hypoglycemia E16.2 Active 460370958 Problem El's esophageal ulceration K22.10 Active 656470920 Problem Bipolar affective disorder, currently depressed, mild F31.31 Active 975595891 Problem Irritable bowel syndrome with diarrhea K58.0 Active 574276251 Problem Stress incontinence N39.3 Active 28935944 Problem History of hypertension Z86.79 Active 126338362 Problem Uncontrolled type 2 diabetes mellitus without complication, without long-term current use of insulin E11.65 Active 457601920 Problem Panic disorder with agoraphobia F40.01 Active 56484899 Problem Type 2 diabetes mellitus with hyperglycemia E11.65 Active 578827954 Problem History of seizures Z87.898 Active 919362632 Problem 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 current use of insulin Z79.4 Active 337533495 Problem History of NV (myocardial infarction) I25.2 Active 965186903 Problem Mood disorder F39 Active 98129623 Problem Bipolar 2 disorder F31.81 Active 92052552 Problem Gastritis and duodenitis K29.90 Active 967735264 Problem History of high cholesterol Z86.39 Active 255882474 Problem Bipolar I disorder with mood-congruent psychotic features F31.9 Active 711810088 Problem Hypertension, benign I10 Active 05504019 Problem Primary insomnia F51.01 Active 0450677 ALLERGIES No Information ENCOUNTERS Encounter Location Date Diagnosis [facility] [id number] [place] [address] 80687- 0377 11 Jul, 2018 [facility] [id number] [place] [address] 88815- 8764 Jun, [facility] [id number] [place] [address] 05936- 0854 Jun, Type 2 diabetes mellitus with hyperglycemia E11.65 and El's esophageal ulceration K22.10 [facility] [id number] [place] [address] 08717- 3915 Jun, Type 2 diabetes mellitus with hyperglycemia E11.65 [facility] [id number] [place] [address] 59133- 9477 17 Jun, 2018 [facility] [id number] [place] [address] 29887- 4141 Jun, [facility] [id number] [place] [address] 14183- 4310 14 Jun, 2018 Bipolar affective disorder, currently depressed, mild F31.31 ; Chronic post-traumatic stress disorder (PTSD) F43.12 and Panic disorder with agoraphobia F40.01 [facility] [id number] [address] 0675 14 Jun, 2018 [facility] [id number] [address] 5404 Jun, [facility] [address] [address]- 3657 Jun, Type 2 diabetes mellitus with hyperglycemia E11.65 [facility] [id number] [address] 3777 Jun, Uncontrolled type 2 diabetes mellitus with hyperglycemia E11.65 [facility] [id number], [place] [address]- 1317 Jun, [facility] [address] [place] [address] 7106 May, Lumbago M54.5 [facility] [address] [id number] May, [facility] [address] [place] [address] 9890 May, [facility] [id number], [place] [address] 5089 May, [facility] [address] [address] 9537 May, [facility] [id number], [place] [address] 8279 May, [facility] [id number], [place] [address]- 7163 May, [facility] [id number], [place] [address]- 2815 May, [facility] [address] [place] [address]- 1317 May, Lumbago M54.5 [facility] [id number] [place] [address] 96294- 5084 May, [facility] [id number] [place] [address] 07873- [address] Apr, [address] of the chest R93.8 [facility] [id number] [place] [address] 63935- 0224 Apr, Bipolar 2 disorder F31.81 ; Chronic post-traumatic stress disorder (PTSD) F43.12 and Panic disorder with agoraphobia F40.01 [facility] [id number] [place] [address] 21936- [address] Apr, [address] of the chest R93.8 [facility] [id number] [place] [address] 12779- [address], [address] of the chest R93.8 [facility] [id number] [place] [address] 13228- 7481 Apr, [facility] [id number] [place] [address] 71656- 0662 Apr, Type 2 diabetes mellitus with hyperglycemia E11.65 [facility] [id number] [place] [address] 38113- 8188 Apr, 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 mellitus without complication, without long-term current use of insulin E11.9 ; Watery eyes H04.203 ; Low back pain M54.5 ; Other chronic pain G89.29 ; Chronic tension-type headache, not intractable G44.229 ; Uncontrolled type 2 diabetes mellitus without complication , without long-term current use of insulin E11.65 and Bronchitis J40 [facility] [id number] [place] [address] 94477- 6317 Apr, [facility] [id number] [place] [address] 68284- 7161 Apr, Lumbago M54.5 [facility] [id number] [place] [address] 73461- 3522 March, [facility] [id number] [place] [address] 92765 -0164 March, Cough R05 ; Pneumonia due to infectious organism, unspecified laterality, unspecified part of lung J18.9 and Non-intractable vomiting with nausea, unspecified vomiting type R11.2 [facility] [id number] [place] [address] 75950- 6329 March, Bronchitis J40 [facility] [address] 57734- 1720 March, [facility] [address] 06491- 7151 March, El's esophageal ulceration K22.10 and Type 2 diabetes mellitus with hyperglycemia E11.65 [facility] [id number] [place] [address] 65666- 7343 March, Panic disorder with agoraphobia F40.01 ; Chronic post- traumatic stress disorder (PTSD) F43.12 and Bipolar 2 disorder F31.81 [facility] [id number] [place] [address] 48172- 1316 March, Type 2 diabetes mellitus with hyperglycemia E11.65 [facility] [id number] [place] [address] 11522- 2544 March, [facility] [id number] [place] [address] 69676- 8025 March, Lumbago M54.5 [facility] [id number] [place] [address] 28936- 1234 March, [facility] [address] 40324- 7679 March, Irritable bowel syndrome with diarrhea K58.0 ; Primary insomnia F51.01 ; Type 2 diabetes mellitus with hyperglycemia E11.65 and 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 [facility] [id number] [place] [address] 42028- 2225 March, [facility] [id number] [place] [address] 46522- 1380 Jan, [facility] [id number] [place] [address] 90315- 1226 Jan, [facility] [id number] [place] [address] 12155- 3404 Jan, [facility] [id number] [place] [address] 46191- 2926 Jan, [facility] [id number] [place] [address] 75906- 0956 Jan, Dizziness R42 [facility] [id number] [place] [address] 80343- 9743 Jan, Bipolar affective disorder, currently depressed, mild F31.31 ; Panic disorder with agoraphobia F40.01 and Chronic post-traumatic stress disorder (PTSD) F43.12 [facility] [id number] [place] [address] 96946- 3237 Jan, Dizziness R42 [facility] [id number] [place] [address] 29300- 5223 Jan, Chest pain, unspecified type R07.9 ; Exertional dyspnea R06.09 ; Hypertension, unspecified type I10 and Hyperlipidemia, unspecified hyperlipidemia type E78.5 [facility] [id number] [place] [address] 34204- 5270 Jan, [facility] [id number] [place] [address] 90495- 8097 Jan, Lumbago M54.5 [facility] [id number] [place] [address] 30333- 5185 Jan, El's esophageal ulceration K22.10 ; Blister (nonthermal ) of oral cavity, initial encounter S00.522A ; Local infection of the skin and subcutaneous tissue, unspecified L08.9 ; Type 2 diabetes mellitus with hyperglycemia E11.65 ; 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 and Stress incontinence N39.3 [facility] [address] [place] [address] 92447- 1668 27 Dec, 2017 [facility] [id number] [place] [address] 03833- 8336 27 Dec, 2017 [facility] [id number] [place] [address] 52915- 7323 19 Dec, 2017 [facility] [id number] [place] [address] [id number] 16 Dec, 2017 Dental examination Z01.20 [facility] [id number] [place] [address] 99843- 2914 15 Dec, 2017 Acute pain of right knee M25.561 [facility] [id number] [place] [address] 35286- 5756 14 Dec, 2017 [facility] [id number] [place] [address] 72683- 1069 14 Dec, 2017 [facility] [id number] [place] [address] 69057- 2554 14 Dec, 2017 Lumbago M54.5 ; Acute pain of right knee M25.561 and Seasonal allergic rhinitis due to other allergic trigger J30.89 [facility] [address], [place] [address]- 0467 Dec, Type 2 diabetes mellitus with hyperglycemia E11.65 [facility] [id number] [place] [address] 20618- 0357 Dec, [facility] [id number] [place] [address] 74686- 0513 Dec, [facility] [id number] [place] [address] 36902- 3786 23 Dec, 2017 [facility] [address], [place] [address]- 7045 Dec, [facility] [id number] [place] [address] 35859- 3945 15 Dec, 2017 Chronic post-traumatic stress disorder (PTSD) F43.12 and Panic disorder with agoraphobia F40.01 [facility] [id number] [place] [address] 16044- 6868 13 Dec, 2017 Low back pain M54.5 [facility] [id number] [place] [address] 08392- 8543 12 Dec, 2017 Type 2 diabetes mellitus with hyperglycemia E11.65 ; 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 current use of insulin Z79.4 ; Low back pain M54.5 ; Encounter for therapeutic drug level monitoring Z51.81 and Other chronic pain G89.29 [facility] [id number] [place] [address] 68253- 3922 09 Dec, 2017 Coughing R05 [facility] [id number] [place] [address] 36407- 9843 09 Dec, 2017 [facility] [id number] [place] [address] [id number] 07 Dec, 2017 Dental examination Z01.20 [facility] [address] 19429- 2424 Nov, Type 2 diabetes mellitus without complications E11.9 and Encounter for therapeutic drug level monitoring Z51.81 [facility] [id number] [place] [address] 53899- 9853 Nov, [facility] [id number] [place] [address] 83658- 3583 Oct, Type 2 diabetes mellitus without complications E11.9 [facility] [id number] [place] [address] 15346- 4804 Oct, Type 2 diabetes mellitus with hyperglycemia E11.65 [facility] [address] [place] [address] 93823- 9884 Aug, Type 2 diabetes mellitus without complications E11.9 [facility] [id number] [place] [address] [place] [address]- 4978 Aug, Type 2 diabetes mellitus without complications E11.9 ; Hypoglycemia E16.2 ; Lumbago M54.5 ; Stress incontinence of urine N39.3 and History of NV (myocardial infarction) I25.2 [facility] [address], [place] [address]- 7104 Jun, [facility] [id number] [place] [address] 54003- 4424 May, [facility] [id number] [place] [address] 84743- 4403 Apr, Panic disorder with agoraphobia F40.01 [facility] [id number] [place] [address] 23963- 6083 Apr, Panic disorder with agoraphobia F40.01 [facility] [address] [place] [address] 87270- 2679 Apr, [facility] [id number] [place] [address] 98262- 7648 March, Other chronic pain G89.29 [facility] [id number] [place] [address] 24595- 5475 March, [facility] [address], [place] [address]- 1506 March, [facility] [address], [place] [address]- 3486 March, [facility] [address] [place] [address] 30762- 2023 March, [facility] [id number] [place] [address] 26264- 7747 March, Type 2 diabetes mellitus without complications E11.9 [facility] [address], [place] [address]- 6109 March, Diarrhea, unspecified type R19.7 [facility] [id number] [address]- 2689 March, Bipolar 2 disorder F31.81 ; Chronic post-traumatic stress disorder (PTSD) F43.12 and Type 2 diabetes mellitus with hyperglycemia E11.65 [facility] [address], [place] [address]- 6962 March, [facility] [id number] [place] [address] 44878- 5229 March, [facility] [id number] [place] [address] 71619- 6925 March, Hypertension, benign I10 ; Type 2 diabetes mellitus with hyperglycemia E11.65 ; Hepatitis C B19.20 ; Gastritis and duodenitis K29.90 and Dysuria R30.0 [facility] [address], [place] [address]- 4479 March, Hypertension, benign I10 ; Type 2 diabetes mellitus with hyperglycemia E11.65 ; Hepatitis C B19.20 ; Gastritis and duodenitis K29.90 and Dysuria R30.0 [facility] [address], [place] [address]- 0800 March, Panic disorder with agoraphobia F40.01 ; Chronic post- traumatic stress disorder (PTSD) F43.12 ; Epilepsy G40.909 and Bipolar I disorder with mood-congruent psychotic features F31.9 [facility] [address], [place] [address]- 2291 March, [facility] [address], [place] [address]- 9773 March, Type 2 diabetes mellitus with hyperglycemia E11.65 [facility] [id number] [place] [address] 50561- 9628 Jan, Bipolar I disorder with duy F31.10 [facility] [address], [place] [address]- 1977 Jan, Bipolar 2 disorder F31.81 ; Chronic post-traumatic stress disorder (PTSD) F43.12 and Type 2 diabetes mellitus with hyperglycemia E11.65 [facility] [address], [place] [address]- 8787 17 Jan, 2017 [facility] [id number] [place] [address] 66586- 2908 17 Jan, 2017 [facility] [address] [place] [address] 21742- 2311 14 Jan, 2017 Panic disorder with agoraphobia F40.01 [facility] [id number] [place] [address] 62630- 3042 13 Jan, 2017 Panic disorder with agoraphobia F40.01 ; Bipolar I disorder with mood-congruent psychotic features F31.9 ; Chronic post-traumatic stress disorder (PTSD) F43.12 and Epilepsy G40.909 [facility] [id number] [place] [address] 55457- 8435 12 Jan, 2017 [facility] [id number] [place] [address] 93348- 6340 11 Jan, 2017 [facility] [id number] [place] [address] 47976- 4429 10 Jan, 2017 Type 2 diabetes mellitus without complications E11.9 and Hypoglycemia E16.2 [facility] [id number] [place] [address] 49624- 5124 07 Jan, 2017 Type 2 diabetes mellitus without complications E11.9 ; Primary insomnia F51.01 and Hypertension, benign I10 [facility] [id number] [place] [address] 46632- 8166 06 Jan, 2017 [facility] [place] [id number] [place] [address] [id number] Jan, [facility] [id number] [place] [address] 76165- 2668 31 Dec, 2016 Type 2 diabetes mellitus with hyperglycemia E11.65 [facility] [address] [place] [address] 12818- 3006 27 Dec, 2016 [facility] [address] [place] [address] 47564- 9041 Dec, Bipolar 2 disorder F31.81 ; Panic disorder with agoraphobia F40.01 ; Chronic post-traumatic stress disorder (PTSD) F43.12 and Epilepsy G40.909 [facility] [id number] [place] [address] 32207- 6852 Dec, [facility] [id number] [place] [address] 33835- 1329 Dec, [facility] [id number] [place] [address] 17969- 1603 Dec, Bipolar 2 disorder F31.81 ; Panic disorder with agoraphobia F40.01 ; Chronic post-traumatic stress disorder (PTSD) F43.12 and Epilepsy G40.909 [facility] [id number] [place] [address] 45256- 7945 Dec, [facility] [id number] [place] [address] 63600- 6941 Dec, [facility] [id number] [place] [address] 62920- 1365 Dec, [facility] [id number] [place] [address] 42532- 4036 Dec, Type 2 diabetes mellitus with hyperglycemia E11.65 ; 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 and Lumbago M54.5 [facility] [id number] [place] [address] 72509- 4150 Dec, [facility] [id number] [place] [address] 64961- 4214 Dec, [facility] [id number] [place] [address] 50212- 1459 Dec, [facility] [id number] [place] [address] 64801 -2589 Dec, Pain of left leg M79.605 and Pain in right leg M79.604 [facility] [id number] [place] [address] 04596- 1406 14 Dec, 2016 [facility] [id number] [place] [address] 17426- 1870 08 Dec, 2016 Type 2 diabetes mellitus with hyperglycemia E11.65 [facility] [id number] [place] [address] 91517- 9334 06 Dec, 2016 [facility] [id number] [place] [address] 22345- 0397 Dec, Type 2 diabetes mellitus with hyperglycemia E11.65 ; 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 ; Vagina, candidiasis B37.3 and Other chronic pain G89.29 [facility] [id number] [place] [address] 91193- 0908 Nov, Panic disorder with agoraphobia F40.01 [facility] [id number] [place] [address] 68513- 3875 Nov, [facility] [id number] [place] [address] 66728- 8573 Nov, [facility] [id number] [place] [address] 85232- 7856 Nov, Hypoglycemia E16.2 [facility] [id number] [place] [address] 30926- 2929 Nov, [facility] [id number] [place] [address] 70351- 5704 Nov, [facility] [id number] [place] [address] 73635- 9379 Nov, [facility] [address] [id number] [place] [address] [phone]- [phone] Nov, Type 2 diabetes mellitus with hyperglycemia E11.65 and 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 [place] [address] [place] [id number] [place] [address] 61780- 1614 Nov, Panic disorder with agoraphobia F40.01 ; Bipolar 2 disorder F31.81 ; Chronic post-traumatic stress disorder (PTSD) F43.12 and Epilepsy G40.909 [facility] [id number] [place] [address] 61741- 0745 Nov, Panic disorder with agoraphobia F40.01 [facility] [address] [place] [id number] [place] [address] 39511- [phone] Oct, [facility] [address] [id number] [place] [address] [phone]- 3452 Oct, [facility] [address] [place] [id number] [place] [address] 38949- 2615 Oct, Bipolar 2 disorder F31.81 ; Panic disorder with agoraphobia F40.01 and Mood disorder F39 [place] [address] [place] [id number] [place] [address] [phone]- 0139 Oct, Diabetes E11.9 ; Type 2 diabetes mellitus with hyperglycemia E11.65 and 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 [place] [address] [place] [id number] [place] [address] 29392- 9818 Oct, [facility] [id number] [place] [address] 43489- 2345 Sep, [facility] [id number] [place] [address] 78675- 4182 Sep, Bipolar 2 disorder F31.81 and Mood disorder F39 [facility] [id number] [place] [address] 61417- 2938 Sep, [facility] [address] [place] [id number] [place] [address] 55881- 1758 Sep, Uncontrolled type 2 diabetes mellitus without complication, without long-term current use of insulin E11.65 [place] [id number] [place] [address] 51495- 9238 Sep, [facility] [id number] [address] 18 Sep, 2016 [facility] [id number] [place] [address] 82027- 2708 Sep, [facility] [id number] [place] [address] 57682- 3717 Sep, [facility] [id number] [place] [address] 05080- 2563 Sep, Bipolar 2 disorder F31.81 ; Chronic post-traumatic stress disorder (PTSD) F43.12 ; Panic disorder with agoraphobia F40.01 and Epilepsy G40.909 [facility] [id number] [place] [address] 07807- 1302 Sep, Bipolar 2 disorder F31.81 ; PTSD (post-traumatic stress disorder) F43.10 and Panic disorder with agoraphobia F40.01 [facility] [id number] [place] [address] 56069- 6993 Sep, [facility] [id number] [place] [address] 59836- 4017 28 Aug, 2016 History of seizures Z87.898 ; Panic disorder with agoraphobia F40.01 and Bipolar 2 disorder F31.81 [facility] [id number], [place] [address] Aug, [facility] [id number] [place] [address] 96025- 0546 17 Aug, 2016 [facility] [id number] [place] [address] 16278- 0194 Aug, [facility] [id number] [place] [address] 12533- 1555 Aug, [facility] [id number], [place] [address] 62[address] Aug, [facility] [id number] [place] [address] 37690- 2551 Aug, [facility] [id number] [place] [address] 96834- 8608 Aug, Hypoglycemia E16.2 and Bilateral impacted cerumen H61.23 [facility] [id number] [place] [address] 22686- 7862 Aug, [facility] [id number] [place] [address] 37447- 0411 Jul, [facility] [id number] [place] [address] 66964- 9406 Jul, [facility] [place] [id number] [place] [address] 57742- 7588 Jul, Bipolar 2 disorder F31.81 ; Panic disorder with agoraphobia F40.01 ; PTSD (post-traumatic stress disorder) F43.10 and Epilepsy G40.909 [facility] [place] [id number] [place] [address] 04272- 7980 Jul, [facility] [id number] [place] [address] 80854- 9450 Jul, Type 2 diabetes mellitus without complications E11.9 and Coughing R05 [facility] [id number] [place] [address] 26361- 5516 Jul, [facility] [id number] [place] [address] 95395- 0556 Jun, [facility] [id number] [place] [address] 83457- 6476 Jun, Bipolar 2 disorder F31.81 ; PTSD (post-traumatic stress disorder) F43.10 and Panic disorder with agoraphobia F40.01 [facility] [id number] [place] [address] 12632- 9709 Jun, [facility] [id number] [place] [address] 81069- 5856 Jun, [place] [id number], [place] [address] 1273 Jun, [facility] [id number] [place] [address] 30719- 0539 Jun, Type 2 diabetes mellitus without complications E11.9 and COPD (chronic obstructive pulmonary disease) J44.9 [facility] [id number] [place] [address] [id number] May, Dental examination Z01.20 and Dental caries K02.9 [facility] [place] [id number] [place] [address] 81573- 4036 May, Bipolar 2 disorder F31.81 ; PTSD (post-traumatic stress disorder) F43.10 and Panic disorder with agoraphobia F40.01 [facility] [place] [id number] [place] [address] 75408- 3969 May, Lumbago with sciatica, right side M54.41 ; Other chronic pain G89.29 and Uncontrolled type 2 diabetes mellitus without complication, without long-term current use of insulin E11.65 [facility] [id number] [place] [address] 03436- 6539 May, Chronic bronchitis, unspecified chronic bronchitis type J42 [facility] [id number] [place] [address] 64367- 2121 May, [facility] [id number] [place] [address] 57690- 0098 May, [facility] [id number] [place] [address] 28857- 9187 May, Chest pain, unspecified type R07.9 ; Tobacco use Z72.0 ; Type 2 diabetes mellitus without complications E11.9 ; Essential hypertension I10 ; Hyperlipidemia, unspecified hyperlipidemia type E78.5 ; Obesity (BMI 30- 39.9) E66.9 ; History of hypothyroidism Z86.39 ; Chronic obstructive pulmonary disease, unspecified COPD type J44.9 ; Anxiety F41.9 ; Bilateral claudication of lower limb I73.9 and Bipolar 2 disorder F31.81 [facility] [place] [id number] [place] [address] 42454- 3122 05 May, 2016 Bipolar 2 disorder F31.81 ; Panic disorder with agoraphobia F40.01 and Tobacco abuse Z72.0 [facility] [id number] [place] [address] 32440- 8518 Apr, [facility] [id number] [place] [address] 99867- 3940 Apr, [facility] [id number] [place] [address] 20922- 1403 Apr, [place] [address] 79816- 1613 Apr, Bipolar 2 disorder F31.81 ; Panic disorder with agoraphobia F40.01 and PTSD (post-traumatic stress disorder) F43.10 [facility] [id number] [place] [address] 87927- 3574 Apr, Chronic bronchitis, unspecified chronic bronchitis type J42 ; Cervical neuritis M54.12 and Thoracic neuritis M54.14 [facility] [id number] [place] [address] 54355- 2041 Apr, [facility] [id number] [place] [address] 54768- 1976 15 Apr, 2016 Cervicalgia M54.2 [facility] [id number] [place] [address] 94589- 4357 14 Apr, 2016 Bipolar 2 disorder F31.81 ; Panic disorder with agoraphobia F40.01 and PTSD (post-traumatic stress disorder) F43.10 [facility] [address] [place] [id number] [place] [address] 01054 -8426 13 Apr, 2016 [facility] [address] [place] [id number] [place] [address] 96220 -7301 09 Apr, 2016 Cough R05 and Tobacco dependence F17.200 [facility] [place] [id number] [address]- 7978 Apr, [facility] [id number] [place] [address] 97529- 0214 Apr, [facility] [id number] [place] [address] 84776- 5911 March, Bipolar 2 disorder F31.81 ; Panic disorder with agoraphobia F40.01 and Generalized anxiety disorder F41.1 [facility] [place] [id number] [place] [address] 57638- 5880 March, Closed displaced fracture of fifth metatarsal bone of right foot with routine healing, subsequent encounter S92.351D [place] [id number] [place] [address] 34506- 9590 March, Bronchitis J40 [facility] [place] [id number] [place] [address] 90443- 6078 March, [facility] [id number] [place] [address] 79489- 9985 March, [facility] [id number] [place] [address] 15618- 5730 March, Foot pain, right M79.671 ; Cervicalgia M54.2 and 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 mellitus without complication, unspecified prison insulin use status E11.9 [place] [address] [place] [address] 34639- 6346 March, Fracture of fifth metatarsal bone of right foot S92.351A [facility] [id number] [place] [address] 37651- 4770 March, [facility] [id number] [place] [address] 01307- 3498 Jan, Fracture of fifth metatarsal bone of right foot S92.351A [facility] [place] [id number] [place] [address] 43324- 9618 Jan, Bipolar 2 disorder F31.81 ; PTSD (post-traumatic stress disorder) F43.10 ; Panic disorder with agoraphobia F40.01 and Epilepsy G40.909 [place] [address] 57525- 6287 Jan, History of NV (myocardial infarction) I25.2 and History of high cholesterol Z86.39 [place] [address] 99047- 3333 Jan, Bipolar 2 disorder F31.81 ; Panic disorder with agoraphobia F40.01 ; Tobacco abuse Z72.0 and PTSD (post-traumatic stress disorder) F43.10 [place] [address] 21988- 1955 Jan, Fracture of fifth metatarsal bone of right foot S92.351A [place] [address] 34494- 5056 Jan, [facility] [place] [address] 25922- 2331 Jan, History of high cholesterol Z86.39 [place] [address] 44949- 9050 Jan, History of NV (myocardial infarction) I25.2 [place] [address] 74225- 3967 Jan, [place] [address] 16098- 8294 Dec, Back pain M54.9 ; Diabetes E11.9 ; Right knee pain M25.561 and Chest pain R07.9 [place] [address] 29053- 2736 Dec, [facility] [place] [address] 28134- 1298 Dec, [place] [address] 70035- 8273 Dec, Cervicalgia M54.2 [facility] [id number] [place] [address] 26689- 5797 Dec, Bipolar 2 disorder F31.81 ; PTSD (post-traumatic stress disorder) F43.10 ; Panic disorder with agoraphobia F40.01 and Epilepsy G40.909 [facility] [id number] [place] [address] 52581- 3240 Dec, Bipolar 2 disorder F31.81 ; PTSD (post-traumatic stress disorder) F43.10 and Panic disorder with agoraphobia F40.01 [facility] [id number] [place] [address] 28290- 2773 Dec, Diabetes E11.9 [place] [address] 46644- 5210 Dec, [place] [address] 16539- 9264 Dec, Other chronic pain G89.29 ; Hepatitis C B19.20 and History of seizures Z87.898 [facility] [id number] [place] [address] 98229- 0686 Dec, [facility] [address] 74695- 3485 Dec, Bipolar 2 disorder F31.81 and Other chronic pain G89.29 [facility] [id number] [place] [address] 64230 2542 Dec, Cervicalgia M54.2 and Diabetes E11.9 [facility] [id number] [place] [address] 45249 2541 Dec, [facility] [address] 78571- 0717 Dec, [facility] [id number] [place] [address] 93657- 6711 Dec, [facility] [address] 99305- 5206 16 Dec, 2015 [place] [address] 91710- 5716 Dec, Type 2 diabetes mellitus without complications E11.9 [place] [address] 07585- 0608 10 Dec, 2015 [place] [address] 75562- 5119 Dec, History of seizures Z87.898 and Hepatitis C B19.20 [place] [address] 86512- 8720 Dec, Hepatitis C B19.20 [place] [address] 30157- 5436 Dec, [place] [address] 24933- 1518 Dec, Cervicalgia M54.2 ; COPD (chronic obstructive pulmonary disease) J44.9 and Hepatitis C B19.20 [facility] [place] [address] 54003- 9993 Dec, Bipolar 2 disorder F31.81 ; History of hypertension Z86.79 ; History of anxiety Z86.59 ; Panic disorder with agoraphobia F40.01 and Epilepsy G40.909 [facility] [id number] [place] [address] 05782- 5051 Nov, [facility] [address] 03095- 5392 Nov, [facility] [place] [address] 01900- 4221 Nov, History of seizures Z87.898 ; OAB (overactive bladder) N32.81 ; Lumbago M54.5 ; Other chronic pain G89.29 ; Cervicalgia M54.2 ; Tobacco abuse Z72.0 ; Tobacco abuse counseling Z71.6 and Impaired fasting glucose R73.01 [facility] [id number] [place] [address] 85299- 6852 14 Nov, 2015 Bipolar 2 disorder F31.81 ; PTSD (post-traumatic stress disorder) F43.10 ; History of anxiety Z86.59 ; History of COPD Z87.09 ; Panic disorder with agoraphobia F40.01 and Moderate depressed bipolar I disorder F31.32 [place] [address] 95597- 6085 12 Nov, 2015 PTSD (post-traumatic stress disorder) F43.10 [facility] [address] [id number] 11 Nov, 2015 Dental examination Z01.20 and Dental caries K02.9 [facility] [id number] [place] [address] 63337- 4489 08 Nov, 2015 History of hypertension Z86.79 ; History of hypothyroidism Z86.39 ; History of high cholesterol Z86.39 ; History of COPD Z87.09 and Overactive bladder N32.81 [facility] [id number] [place] [address] 90696- 9450 Nov, Bipolar 2 disorder F31.81 and PTSD (post-traumatic stress disorder) F43.10 [facility] [id number] [place] [address] 38794- 3558 Nov, PTSD (post-traumatic stress disorder) F43.10 ; Panic disorder with agoraphobia F40.01 ; Epilepsy G40.909 and Moderate depressed bipolar I disorder F31.32 [facility] [id number] [place] [address] 23191- 3843 Nov, [facility] [address] 40129- 7265 Nov, [facility] [id number] [place] [address] 09147- 2691 Oct, [facility] [address] 25478- 2138 Oct, Generalized anxiety disorder F41.1 ; Major depression, recurrent F33.9 and PTSD (post-traumatic stress disorder) F43.10 [facility] [place] [address] [place] [address] 87779- 3239 Oct, Elevated fasting glucose R73.01 [place] [id number] [place] [address] 68182- 5499 Oct, Elevated fasting glucose R73.01 [facility] [id number] [place] [address] 56978- 0325 Oct, History of COPD Z87.09 [place] [id number] [place] [address] 30666- 7835 Oct, General medical exam Z00.00 ; History of hypertension Z86.79 ; History of hypothyroidism Z86.39 ; History of hepatitis Z86.19 ; History of high cholesterol Z86.39 and History of seizures Z87.898 [address] [place] [address] 63604- 4414 Oct, General medical exam Z00.00 ; History of hypertension Z86.79 ; History of hypothyroidism Z86.39 ; Bipolar 2 disorder F31.81 ; PTSD ( post-traumatic stress disorder) F43.10 ; History of hepatitis Z86.19 ; History of high cholesterol Z86.39 ; History of anxiety Z86.59 ; History of seizures Z87.898 ; History of NV (myocardial infarction) I25.2 and History of COPD Z87.09 [facility] [place] [address] [place] [address] 76152- 1531 Oct, Generalized anxiety disorder F41.1 ; Depression F32.9 and PTSD (post-traumatic stress disorder) F43.10 [address] [place] [address] 71204- 8559 Jan, [address] [place] [address] 72410- 6563 Jan, [place] [id number] [address]- 2546 Jun, [facility] [address] [place] [id number] Jun, [facility] [address] [facility] [id number] [address]- 2546 May, [facility] [address] [facility] [id number], [place] [address]- 2546 May, [facility] [address] [place] [id number] May, [facility] [address] [facility] [id number] [address]- 2546 May, [facility] [address] [place] [id number] May, [facility] [address] [facility] [id number] [address]- 2546 May, IMMUNIZATIONS No Known Immunizations SOCIAL HISTORY Never Assessed REASON FOR VISIT ct results PLAN OF CARE VITAL SIGNS MEDICATIONS Medication Instructions Dosage Frequency Start Date End Date Duration Status Nicoderm CQ 14 MG/24HR Transdermal Once a day 1 patch to skin 24h Apr, Jun, 30 day(s) Active RESULTS No Results PROCEDURES [...]
--- OUTSIDE RECORDS SUMMARY | 2019-01-26 07:51 | XMS REPORT ---
Author Author GERARDO KISER [facility] Address [address] [place] [address] Care Team Providers Care Supervisor [employer] Name Role Phone MARGI GERARDO Unavailable PROBLEMS Type Condition ICD9-CM Code EYY59-BU Code Onset Dates Condition Status SNOMED Code Problem OAB (overactive bladder) N32.81 Active 000615105 Problem Epilepsy G40.909 Active 51149000 Problem Cervicalgia M54.2 Active 74969657 Problem Other chronic pain G89.29 Active 95759290 Problem Tobacco abuse Z72.0 Active 78410309 Problem Lumbago M54.5 Active 757084133 Problem Hepatitis C B19.20 Active 01754397 Problem COPD (chronic obstructive pulmonary disease) J44.9 Active 54018218 Problem Diabetes E11.9 Active 29092544 Problem Bipolar I disorder with duy F31.10 Active 50318909 Problem Type 2 diabetes mellitus without complications E11.9 Active 572564980 Problem Stress incontinence of urine N39.3 Active 50732911 Problem Bilateral claudication of lower limb I73.9 Active 040635060 Problem Seasonal allergic rhinitis due to other allergic trigger J30.89 Active 873805560 Problem Hyperlipidemia, unspecified hyperlipidemia type E78.5 Active 61851718 Problem Hypertension, unspecified type I10 Active 12768317 Problem Chronic tension-type headache, not intractable G44.229 Active 850644733 Problem 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 mellitus without complication, without long -term current use of insulin E11.9 Active 539025003 Problem Type 2 diabetes mellitus with hyperglycemia E11.65 Active 273369294 Problem Chronic post-traumatic stress disorder (PTSD) F43.12 Active 160896729 Problem History of hypothyroidism Z86.39 Active 618369000 Problem Hypoglycemia E16.2 Active 328093976 Problem El's esophageal ulceration K22.10 Active 165909682 Problem Bipolar affective disorder, currently depressed, mild F31.31 Active 418092737 Problem Irritable bowel syndrome with diarrhea K58.0 Active 880581003 Problem Stress incontinence N39.3 Active 88233350 Problem History of hypertension Z86.79 Active 665318325 Problem Uncontrolled type 2 diabetes mellitus without complication, without long-term current use of insulin E11.65 Active 455309635 Problem Panic disorder with agoraphobia F40.01 Active 18242282 Problem Type 2 diabetes mellitus with hyperglycemia E11.65 Active 866890119 Problem History of seizures Z87.898 Active 908607326 Problem group home current use of insulin Z79.4 Active 488235106 Problem History of [place] (myocardial infarction) I25.2 Active 881904543 Problem Mood disorder F39 Active 93978535 Problem Bipolar 2 disorder F31.81 Active 80681326 Problem Gastritis and duodenitis K29.90 Active 671314303 Problem History of high cholesterol Z86.39 Active 735630991 Problem Bipolar I disorder with mood-congruent psychotic features F31.9 Active 153941048 Problem Hypertension, benign I10 Active 75401447 Problem Primary insomnia F51.01 Active 5174262 ALLERGIES No Information ENCOUNTERS Encounter Location Date Diagnosis [facility] [id number] [place] [address] 20067- 4828 11 Jul, 2018 [facility] [id number] [place] [address] 78739- 4339 Jun, [facility] [id number] [place] [address] 73282- 1640 Jun, [facility] [id number] [place] [address] 55609- 2851 23 Jun, 2018 Type 2 diabetes mellitus with hyperglycemia E11.65 [facility] [id number] [place] [address] 30515- 5225 17 Jun, 2018 [facility] [id number] [place] [address] 47659- 7898 16 Jun, 2018 [facility] [id number] [place] [address] 25437- 7155 14 Jun, 2018 Bipolar affective disorder, currently depressed, mild F31.31 ; Chronic post-traumatic stress disorder (PTSD) F43.12 and Panic disorder with agoraphobia F40.01 [facility] [address] [facility] [address] [id number], [place] [address] 5047 Jun, [facility] [address] [facility] [address] [id number], [place] [address] 6460 Jun, [facility] [address] [facility] [address] [id number], [place] [address] 0566 Jun, Type 2 diabetes mellitus with hyperglycemia E11.65 [facility] [address] [facility] [address] [id number], [place] [address] 7205 Jun, Uncontrolled type 2 diabetes mellitus with hyperglycemia E11.65 [facility] [address] [facility] [address] [id number], [place] [address] 6307 Jun, [facility] [address] [facility] [address] [id number], [place] [address] 2427 May, Lumbago M54.5 [facility] [address] [facility] [id number] [id number] May, [facility] [address] [facility] [address] [id number], [place] [address] 2773 May, [facility] [address] [facility] [address] [id number], [place] [address] 2582 May, [facility] [address] [facility] [address] [id number], [place] [address] 6312 May, [facility] [address] [facility] [address] [id number], [place] [address] 4188 May, [facility] [address] [facility] [address] [id number], [place] [address] 5379 May, [facility] [address] [facility] [address] [id number], [place] [address] 2600 May, [facility] [address] [facility] [address] [id number], [place] [address] 1519 May, Lumbago M54.5 [facility] [address] [facility] [address] [id number], [place] [address] 1088 May, [facility] [address] [address] [address], [address] of the chest R93.8 [facility] [id number] [place] [address] 17576- 5632 Apr, Bipolar 2 disorder F31.81 ; Chronic post-traumatic stress disorder (PTSD) F43.12 and Panic disorder with agoraphobia F40.01 [facility] [id number] [place] [address] 54346- [address] Apr, [address] of the chest R93.8 [facility] [id number] [place] [address] 48119- [address] Apr, [address] of the chest R93.8 [facility] [id number] [place] [address] 04317- 0961 Apr, [facility] [id number] [place] [address] 46851- 0279 Apr, Type 2 diabetes mellitus with hyperglycemia E11.65 [facility] [id number] [place] [address] 10536- 1931 Apr, 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 mellitus without complication, without long-term current use of insulin E11.9 ; Watery eyes H04.203 ; Low back pain M54.5 ; Other chronic pain G89.29 ; Chronic tension-type headache, not intractable G44.229 ; Uncontrolled type 2 diabetes mellitus without complication , without long-term current use of insulin E11.65 and Bronchitis J40 [facility] [address], [place] [address] 2109 Apr, [facility] [id number] [place] [address] 08215- 0823 Apr, Lumbago M54.5 [facility] [address], [place] [address] 5725 March, [facility] [id number] [place] [address] 96028 -1597 March, Cough R05 ; Pneumonia due to infectious organism, unspecified laterality, unspecified part of lung J18.9 and Non-intractable vomiting with nausea, unspecified vomiting type R11.2 [facility] [id number] [place] [address] 41530- 3606 March, Bronchitis J40 [facility] [address] 31610- 6106 March, [facility] [address] 56757- 5927 March, El's esophageal ulceration K22.10 and Type 2 diabetes mellitus with hyperglycemia E11.65 [facility] [id number] [place] [address] 10138- 5027 March, Panic disorder with agoraphobia F40.01 ; Chronic post- traumatic stress disorder (PTSD) F43.12 and Bipolar 2 disorder F31.81 [facility] [id number] [place] [address] 69137- 8399 March, Type 2 diabetes mellitus with hyperglycemia E11.65 [facility] [id number] [place] [address] 36615- 7448 March, [facility] [id number] [place] [address] 27602- 5393 March, Lumbago M54.5 [facility] [id number] [place] [address] 08092- 9794 March, [facility] [id number] [place] [address] 98769- 2750 March, Irritable bowel syndrome with diarrhea K58.0 ; Primary insomnia F51.01 ; Type 2 diabetes mellitus with hyperglycemia E11.65 and group home current use of insulin Z79.4 [facility] [id number] [place] [address] 89072- 4868 March, [facility] [id number] [place] [address] 66690- 2657 Jan, [facility] [id number] [place] [address] 13723- 6397 Jan, [facility] [id number] [place] [address] 98865- 7342 Jan, [facility] [address] 33385- 9837 Jan, [facility] [id number] [place] [address] 59295- 1423 Jan, Dizziness R42 [facility] [address] 40261- 3787 Jan, Bipolar affective disorder, currently depressed, mild F31.31 ; Panic disorder with agoraphobia F40.01 and Chronic post-traumatic stress disorder (PTSD) F43.12 [facility] [id number] [place] [address] 96061- 2183 Jan, Dizziness R42 [facility] [id number] [place] [address] 16802- 1102 Jan, Chest pain, unspecified type R07.9 ; Exertional dyspnea R06.09 ; Hypertension, unspecified type I10 and Hyperlipidemia, unspecified hyperlipidemia type E78.5 [facility] [id number] [place] [address] 79335- 4575 Jan, [facility] [id number] [place] [address] 10830- 6479 Jan, Lumbago M54.5 [facility] [id number] [place] [address] 74251- 5664 Jan, El's esophageal ulceration K22.10 ; Blister (nonthermal ) of oral cavity, initial encounter S00.522A ; Local infection of the skin and subcutaneous tissue, unspecified L08.9 ; Type 2 diabetes mellitus with hyperglycemia E11.65 ; 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 and Stress incontinence N39.3 [facility] [address], [place] [address] 0077 27 Dec, 2017 [facility] [id number] [place] [address] 37994- 0646 27 Dec, 2017 [facility] [address] [place] [address] 87525- 5831 19 Dec, 2017 [facility] [id number] [place] [address] [id number] 16 Dec, 2017 Dental examination Z01.20 [facility] [id number] [place] [address] 59857- 8886 15 Dec, 2017 Acute pain of right knee M25.561 [facility] [id number] [place] [address] 86101- 5429 14 Dec, 2017 [facility] [id number] [place] [address] 20964- 2670 14 Dec, 2017 [facility] [id number] [place] [address] 58557- 7331 14 Dec, 2017 Lumbago M54.5 ; Acute pain of right knee M25.561 and Seasonal allergic rhinitis due to other allergic trigger J30.89 [facility] [address], [place] [address]- 5868 Dec, Type 2 diabetes mellitus with hyperglycemia E11.65 [facility] [id number] [place] [address] 43102 254 08 Dec, 2017 [facility] [address] [place] [address] 11596- 254 Dec, [facility] [id number] [place] [address] 00426- 9341 23 Dec, 2017 [facility] [id number] [address]- 9630 15 Dec, 2017 [facility] [id number] [place] [address] 05074- 8547 15 Dec, 2017 Chronic post-traumatic stress disorder (PTSD) F43.12 and Panic disorder with agoraphobia F40.01 [facility] [id number] [place] [address] 02730- 3615 13 Dec, 2017 Low back pain M54.5 [facility] [id number] [place] [address] 31156- 1909 12 Dec, 2017 Type 2 diabetes mellitus with hyperglycemia E11.65 ; group home current use of insulin Z79.4 ; Low back pain M54.5 ; Encounter for therapeutic drug level monitoring Z51.81 and Other chronic pain G89.29 [facility] [address] 70502- 2948 09 Dec, 2017 Coughing R05 [facility] [id number] [place] [address] 80056- 3126 09 Dec, 2017 [facility] [address] [id number] Dec, 2017 Dental examination Z01.20 [facility] [id number] [place] [address] 41490- 6662 Nov, Type 2 diabetes mellitus without complications E11.9 and Encounter for therapeutic drug level monitoring Z51.81 [facility] [id number] [place] [address] 80061- 2417 Nov, [facility] [id number] [place] [address] 11216- 0662 Oct, Type 2 diabetes mellitus without complications E11.9 [facility] [id number] [place] [address] 46741- 3310 Oct, Type 2 diabetes mellitus with hyperglycemia E11.65 [facility] [id number] [place] [address] 36833- 0645 Aug, Type 2 diabetes mellitus without complications E11.9 [facility] [id number] [place] [address] 00306- 8244 Aug, Type 2 diabetes mellitus without complications E11.9 ; Hypoglycemia E16.2 ; Lumbago M54.5 ; Stress incontinence of urine N39.3 and History of [place] (myocardial infarction) I25.2 [facility] [id number] [place] [address] 04943- 7086 Jun, [facility] [id number] [place] [address] 37552- 4603 May, [facility] [address] 05826- 9342 Apr, Panic disorder with agoraphobia F40.01 [facility] [address] 63314- 7427 Apr, Panic disorder with agoraphobia F40.01 [facility] [id number] [place] [address] 42065- 5045 Apr, [facility] [id number] [place] [address] 26127- 6148 March, Other chronic pain G89.29 [facility] [id number] [place] [address] 66519- 2136 March, [facility] [id number] [place] [address] 22396- 3772 March, [facility] [id number] [place] [address] 23678- 6194 March, [facility] [id number] [place] [address] 25567- 4492 March, [facility] [id number] [place] [address] 72315- 2146 March, Type 2 diabetes mellitus without complications E11.9 [facility] [address] [place] [address] 38084- 8641 March, Diarrhea, unspecified type R19.7 [facility] [address] [place] [address] 14485- 8841 March, Bipolar 2 disorder F31.81 ; Chronic post-traumatic stress disorder (PTSD) F43.12 and Type 2 diabetes mellitus with hyperglycemia E11.65 [facility] [address] [address]- 7469 March, [facility] [address] [address]- 3669 March, [facility] [address] [place] [address] 78946- 4831 March, Hypertension, benign I10 ; Type 2 diabetes mellitus with hyperglycemia E11.65 ; Hepatitis C B19.20 ; Gastritis and duodenitis K29.90 and Dysuria R30.0 [facility] [address] [place] [address] 89323- 2229 March, Hypertension, benign I10 ; Type 2 diabetes mellitus with hyperglycemia E11.65 ; Hepatitis C B19.20 ; Gastritis and duodenitis K29.90 and Dysuria R30.0 [facility] [address] [place] [address] 15702- 7204 March, Panic disorder with agoraphobia F40.01 ; Chronic post- traumatic stress disorder (PTSD) F43.12 ; Epilepsy G40.909 and Bipolar I disorder with mood-congruent psychotic features F31.9 [facility] [address], [place] [address]- 5883 March, [facility] [address] [place] [address] 26122- 2551 March, Type 2 diabetes mellitus with hyperglycemia E11.65 [facility] [address], [place] [address]- 1028 Jan, Bipolar I disorder with duy F31.10 [facility] [address] [place] [address] 28203- 6110 Jan, Bipolar 2 disorder F31.81 ; Chronic post-traumatic stress disorder (PTSD) F43.12 and Type 2 diabetes mellitus with hyperglycemia E11.65 [facility] [address], [place] [address]- 0024 17 Jan, 2017 [facility] [id number] [place] [address] 14471- 1359 17 Jan, 2017 [facility] [id number] [place] [address] 65028- 7026 14 Jan, 2017 Panic disorder with agoraphobia F40.01 [facility] [address] [place] [address] 49966- 0832 13 Jan, 2017 Panic disorder with agoraphobia F40.01 ; Bipolar I disorder with mood-congruent psychotic features F31.9 ; Chronic post-traumatic stress disorder (PTSD) F43.12 and Epilepsy G40.909 [facility] [id number] [place] [address] 70542- 8120 12 Jan, 2017 [facility] [id number] [place] [address] 23924- 9242 Jan, [facility] [address] [place] [address] 59861- 9883 10 Jan, 2017 Type 2 diabetes mellitus without complications E11.9 and Hypoglycemia E16.2 [facility] [address] [place] [address] 36258- 4880 07 Jan, 2017 Type 2 diabetes mellitus without complications E11.9 ; Primary insomnia F51.01 and Hypertension, benign I10 [facility] [id number] [place] [address] 89240- 1491 Jan, [facility] [id number] [place] [address] [id number] Jan, [facility] [address] [place] [address] 15503- 3853 Dec, Type 2 diabetes mellitus with hyperglycemia E11.65 [facility] [id number] [place] [address] 65521- 5784 Dec, [facility] [address] [place] [address] 25299- 6823 Dec, Bipolar 2 disorder F31.81 ; Panic disorder with agoraphobia F40.01 ; Chronic post-traumatic stress disorder (PTSD) F43.12 and Epilepsy G40.909 [facility] [address] [place] [address] 28968- 7741 Dec, [facility] [id number] [place] [address] 85168- 6373 Dec, [facility] [address] [place] [address] 95529- 0278 Dec, Bipolar 2 disorder F31.81 ; Panic disorder with agoraphobia F40.01 ; Chronic post-traumatic stress disorder (PTSD) F43.12 and Epilepsy G40.909 [facility] [address] [place] [address] 22182- 4265 Dec, [facility] [id number] [place] [address] 37614- 9683 Dec, [facility] [id number] [place] [address] 95815- 7367 Dec, [facility] [address] [place] [address] 41289- 8866 Dec, Type 2 diabetes mellitus with hyperglycemia E11.65 ; group home current use of insulin Z79.4 and Lumbago M54.5 [facility] [address] [place] [address] 55201- 1885 Dec, [facility] [id number] [place] [address] 83565- 7688 Dec, [facility] [id number] [place] [address] 76302- 1215 Dec, [facility] [address] [place] [address] 16005 -0786 Dec, Pain of left leg M79.605 and Pain in right leg M79.604 [facility] [id number] [place] [address] 86336- 9865 14 Dec, 2016 [facility] [id number] [place] [address] 27527- 9568 08 Dec, 2016 Type 2 diabetes mellitus with hyperglycemia E11.65 [facility] [address] [place] [address] 22794- 0848 06 Dec, 2016 [facility] [address] 80632- 6358 Dec, Type 2 diabetes mellitus with hyperglycemia E11.65 ; 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 ; Vagina, candidiasis B37.3 and Other chronic pain G89.29 [facility] [address] [place] [address] 53019- 1394 Nov, Panic disorder with agoraphobia F40.01 [facility] [address] 83508- 2607 Nov, [facility] [id number] [place] [address] 03716- 2782 Nov, [facility] [id number] [place] [address] 35477- 8897 Nov, Hypoglycemia E16.2 [place] [id number] [place] [address] 65593- 2561 Nov, [place] [id number] [place] [address] 09992- 7472 Nov, [place] [id number] [place] [address] 35505- 5012 Nov, [place] [id number] [place] [address] 33253- 1049 Nov, Type 2 diabetes mellitus with hyperglycemia E11.65 and 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 [place] [id number] [place] [address] 29921- 4754 Nov, Panic disorder with agoraphobia F40.01 ; Bipolar 2 disorder F31.81 ; Chronic post-traumatic stress disorder (PTSD) F43.12 and Epilepsy G40.909 [facility] [id number] [place] [address] 09514- 1325 Nov, Panic disorder with agoraphobia F40.01 [facility] [id number] [place] [address] [id number]- 6538 16 Oct, 2016 [facility] [address] 00158- 8525 Oct, [facility] [id number] [place] [address] 41078- 7135 Oct, Bipolar 2 disorder F31.81 ; Panic disorder with agoraphobia F40.01 and Mood disorder F39 [place] [id number] [place] [address] 99121- 0117 Oct, Diabetes E11.9 ; Type 2 diabetes mellitus with hyperglycemia E11.65 and 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 [place] [id number] [place] [address] 12428- 6812 Oct, [place] [id number] [place] [address] 87831- 1438 Sep, [place] [id number] [place] [address] 53547- 3451 Sep, Bipolar 2 disorder F31.81 and Mood disorder F39 [facility] [facility] [id number] [place] [address] 68469- 5849 Sep, [facility] [id number] [place] [address] 60731- 0972 Sep, Uncontrolled type 2 diabetes mellitus without complication, without long-term current use of insulin E11.65 [facility] [id number] [place] [address] 96644- 2179 Sep, [facility] [address] 85666- 1772 Sep, [facility] [address] [address] 1105 Sep, [facility] [id number] [place] [address] 46537- 1670 Sep, [facility] [id number] [place] [address] 33687- 6394 Sep, Bipolar 2 disorder F31.81 ; Chronic post-traumatic stress disorder (PTSD) F43.12 ; Panic disorder with agoraphobia F40.01 and Epilepsy G40.909 [facility] [id number] [place] [address] 77821- 4316 Sep, Bipolar 2 disorder F31.81 ; PTSD (post-traumatic stress disorder) F43.10 and Panic disorder with agoraphobia F40.01 [facility] [id number] [place] [address] 62223- 0856 Sep, [facility] [id number] [place] [address] 47226- 0152 28 Aug, 2016 History of seizures Z87.898 ; Panic disorder with agoraphobia F40.01 and Bipolar 2 disorder F31.81 [facility] [id number] [place] [address] 07092- 9122 Aug, [facility] [id number] [place] [address] 26812- 1701 17 Aug, 2016 [facility] [id number] [place] [address] 23507- 9020 Aug, [facility] [id number] [place] [address] 42344- 7755 Aug, [facility] [id number] [place] [address] 14060- 9109 Aug, [facility] [id number] [place] [address] 58672- 2272 Aug, [facility] [id number] [place] [address] 73422- 3371 10 Aug, 2016 Hypoglycemia E16.2 and Bilateral impacted cerumen H61.23 [facility] [address] 38221- 8854 Aug, [facility] [address] 69402- 3006 Jul, [facility] [address] 26875- 3280 Jul, [facility] [address] 81288- 5868 Jul, Bipolar 2 disorder F31.81 ; Panic disorder with agoraphobia F40.01 ; PTSD (post-traumatic stress disorder) F43.10 and Epilepsy G40.909 [facility] [address] 11591- 5523 Jul, [facility] [id number] [place] [address] 29629- 3140 Jul, Type 2 diabetes mellitus without complications E11.9 and Coughing R05 [facility] [id number] [place] [address] 84186- 7259 Jul, [facility] [id number] [place] [address] 05225- 4803 Jun, [facility] [id number] [place] [address] 98882- 1841 Jun, Bipolar 2 disorder F31.81 ; PTSD (post-traumatic stress disorder) F43.10 and Panic disorder with agoraphobia F40.01 [facility] [id number] [place] [address] 66349- 3086 Jun, [facility] [id number] [place] [address] 42747- 1390 Jun, [facility] [address] 51924- 0062 Jun, [facility] [id number] [place] [address] 62431- 1934 Jun, Type 2 diabetes mellitus without complications E11.9 and COPD (chronic obstructive pulmonary disease) J44.9 [facility] [id number] [id number] May, Dental examination Z01.20 and Dental caries K02.9 [facility] [id number] [place] [address] 26012- 4688 May, Bipolar 2 disorder F31.81 ; PTSD (post-traumatic stress disorder) F43.10 and Panic disorder with agoraphobia F40.01 [facility] [id number] [place] [address] 05342- 1155 May, Lumbago with sciatica, right side M54.41 ; Other chronic pain G89.29 and Uncontrolled type 2 diabetes mellitus without complication, without long-term current use of insulin E11.65 [facility] [id number] [place] [address] 57149- 3611 May, Chronic bronchitis, unspecified chronic bronchitis type J42 [facility] [id number] [place] [address] 68498- 0879 May, [facility] [id number] [place] [address] 86469- 7536 May, [facility] [id number] [place] [address] 35713- 0652 May, Chest pain, unspecified type R07.9 ; Tobacco use Z72.0 ; Type 2 diabetes mellitus without complications E11.9 ; Essential hypertension I10 ; Hyperlipidemia, unspecified hyperlipidemia type E78.5 ; Obesity (BMI 30- 39.9) E66.9 ; History of hypothyroidism Z86.39 ; Chronic obstructive pulmonary disease, unspecified COPD type J44.9 ; Anxiety F41.9 ; Bilateral claudication of lower limb I73.9 and Bipolar 2 disorder F31.81 [facility] [id number] [place] [address] 16447- 1646 05 May, 2016 Bipolar 2 disorder F31.81 ; Panic disorder with agoraphobia F40.01 and Tobacco abuse Z72.0 [facility] [id number] [place] [address] 66914- 6230 30 Apr, 2016 [facility] [id number] [place] [address] 33626- 0142 Apr, [facility] [address] 23046- 6860 Apr, [facility] [id number] [place] [address] 95271- 2122 Apr, Bipolar 2 disorder F31.81 ; Panic disorder with agoraphobia F40.01 and PTSD (post-traumatic stress disorder) F43.10 [facility] [id number] [place] [address] 46891- 6965 Apr, Chronic bronchitis, unspecified chronic bronchitis type J42 ; Cervical neuritis M54.12 and Thoracic neuritis M54.14 [facility] [id number] [place] [address] 17189- 6380 Apr, [facility] [id number] [place] [address] 50740- 0729 Apr, Cervicalgia M54.2 [facility] [id number] [place] [address] 01872- 9042 14 Apr, 2016 Bipolar 2 disorder F31.81 ; Panic disorder with agoraphobia F40.01 and PTSD (post-traumatic stress disorder) F43.10 [facility] [id number] [place] [address] 81463 -4508 13 Apr, 2016 [facility] [address] [place] [id number] [place] [address] 96790 -9993 09 Apr, 2016 Cough R05 and Tobacco dependence F17.200 [facility] [address] 78369- 0396 Apr, [facility] [address], [place] [address]- 6134 Apr, [facility] [id number] [place] [address] 72948- 6472 March, Bipolar 2 disorder F31.81 ; Panic disorder with agoraphobia F40.01 and Generalized anxiety disorder F41.1 [facility] [id number] [place] [address] 68161- 4473 March, Closed displaced fracture of fifth metatarsal bone of right foot with routine healing, subsequent encounter S92.351D [facility] [id number] [place] [address] 25836- 2147 March, Bronchitis J40 [facility] [id number] [place] [address] 42251- 3267 March, [facility] [id number] [place] [address] 09435- 5821 March, [facility] [id number] [place] [address] 54647- 9970 March, Foot pain, right M79.671 ; Cervicalgia M54.2 and 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 mellitus without complication, unspecified group home insulin use status E11.9 [facility] [address], [place] [address]- 2888 March, Fracture of fifth metatarsal bone of right foot S92.351A [facility] [address] [place] [address] 24917- 1923 March, [facility] [address] [place] [address] 30083- 9329 Jan, Fracture of fifth metatarsal bone of right foot S92.351A [facility] [address], [place] [address]- 9706 Jan, Bipolar 2 disorder F31.81 ; PTSD (post-traumatic stress disorder) F43.10 ; Panic disorder with agoraphobia F40.01 and Epilepsy G40.909 [facility] [id number] [place] [address] 46263- 6199 Jan, History of [place] (myocardial infarction) I25.2 and History of high cholesterol Z86.39 [facility] [id number] [place] [address] 78366- 2027 Jan, Bipolar 2 disorder F31.81 ; Panic disorder with agoraphobia F40.01 ; Tobacco abuse Z72.0 and PTSD (post-traumatic stress disorder) F43.10 [facility] [id number] [place] [address] 07106- 9033 Jan, Fracture of fifth metatarsal bone of right foot S92.351A [facility] [address] 19648- 6697 Jan, [facility] [address] 41940- 2484 Jan, History of high cholesterol Z86.39 [facility] [id number] [place] [address] 81237- 3124 Jan, History of [place] (myocardial infarction) I25.2 [facility] [id number] [place] [address] 43916- 6253 Jan, [facility] [id number] [place] [address] 72951- 6003 Dec, Back pain M54.9 ; Diabetes E11.9 ; Right knee pain M25.561 and Chest pain R07.9 [facility] [id number] [place] [address] 20666- 5904 Dec, [facility] [address] 74602- 8741 Dec, [facility] [address] 40626- 1653 Dec, Cervicalgia M54.2 [facility] [address] [place] [address]- 9752 Dec, Bipolar 2 disorder F31.81 ; PTSD (post-traumatic stress disorder) F43.10 ; Panic disorder with agoraphobia F40.01 and Epilepsy G40.909 [facility] [id number] [place] [address] 45709- 8477 Dec, Bipolar 2 disorder F31.81 ; PTSD (post-traumatic stress disorder) F43.10 and Panic disorder with agoraphobia F40.01 [facility] [id number] [place] [address] 16949- 5338 Dec, Diabetes E11.9 [facility] [address] 33630- 2544 Dec, [facility] [id number] [place] [address] 37673- 7359 Dec, Other chronic pain G89.29 ; Hepatitis C B19.20 and History of seizures Z87.898 [facility] [id number] [place] [address] 15060- 5122 Dec, [facility] [id number] [place] [address] 51136- 4651 Dec, Bipolar 2 disorder F31.81 and Other chronic pain G89.29 [facility] [id number] [place] [address] 77738- 3903 Dec, Cervicalgia M54.2 and Diabetes E11.9 [facility] [id number] [place] [address] 07459- 8698 Dec, [facility] [id number] [place] [address] 79519- 8421 Dec, [facility] [id number] [place] [address] 47786- 2169 Dec, [facility] [id number] [place] [address] 47211- 0708 Dec, [facility] [address] [place] [address] 97221- 9630 Dec, Type 2 diabetes mellitus without complications E11.9 [facility] [id number] [place] [address] 97415- 3456 Dec, [facility] [id number] [place] [address] 73483- 6043 Dec, History of seizures Z87.898 and Hepatitis C B19.20 [facility] [id number] [place] [address] 94225- 6766 Dec, Hepatitis C B19.20 [facility] [id number] [place] [address] 91128- 5697 Dec, [facility] [id number] [place] [address] 90161- 7774 Dec, Cervicalgia M54.2 ; COPD (chronic obstructive pulmonary disease) J44.9 and Hepatitis C B19.20 [facility] [address] [place] [address] 66813- 4805 Dec, Bipolar 2 disorder F31.81 ; History of hypertension Z86.79 ; History of anxiety Z86.59 ; Panic disorder with agoraphobia F40.01 and Epilepsy G40.909 [facility] [id number] [place] [address] 79413- 1542 Nov, [facility] [address] [place] [address] 12021- 4376 Nov, [facility] [id number] [place] [address] 67660- 3068 Nov, History of seizures Z87.898 ; OAB (overactive bladder) N32.81 ; Lumbago M54.5 ; Other chronic pain G89.29 ; Cervicalgia M54.2 ; Tobacco abuse Z72.0 ; Tobacco abuse counseling Z71.6 and Impaired fasting glucose R73.01 [facility] [id number] [address]- 4314 14 Nov, 2015 Bipolar 2 disorder F31.81 ; PTSD (post-traumatic stress disorder) F43.10 ; History of anxiety Z86.59 ; History of COPD Z87.09 ; Panic disorder with agoraphobia F40.01 and Moderate depressed bipolar I disorder F31.32 [id number] [place] [address] 60401- 5064 12 Nov, 2015 PTSD (post-traumatic stress disorder) F43.10 [facility] [address] [place] [address] [id number] 11 Nov, 2015 Dental examination Z01.20 and Dental caries K02.9 [id number] [place] [address] 81717- 4920 08 Nov, 2015 History of hypertension Z86.79 ; History of hypothyroidism Z86.39 ; History of high cholesterol Z86.39 ; History of COPD Z87.09 and Overactive bladder N32.81 [id number] [place] [address] 41942- 0338 Nov, Bipolar 2 disorder F31.81 and PTSD (post-traumatic stress disorder) F43.10 [id number] [place] [address] 91961- 4991 Nov, PTSD (post-traumatic stress disorder) F43.10 ; Panic disorder with agoraphobia F40.01 ; Epilepsy G40.909 and Moderate depressed bipolar I disorder F31.32 [id number] [place] [address] 31712- 2644 Nov, [id number] [place] [address] 23251- 0193 Nov, [id number] [place] [address] 21577- 8666 Oct, [id number] [place] [address] 05555- 3429 Oct, Generalized anxiety disorder F41.1 ; Major depression, recurrent F33.9 and PTSD (post-traumatic stress disorder) F43.10 [facility] [address] [place] [address] 74324- 0914 Oct, Elevated fasting glucose R73.01 [facility] [id number] [place] [address] 20769- 1639 Oct, Elevated fasting glucose R73.01 [facility] [id number] [place] [address] 59840- 5909 Oct, History of COPD Z87.09 [id number] [place] [address] 51985- 4634 15 Oct, 2015 General medical exam Z00.00 ; History of hypertension Z86.79 ; History of hypothyroidism Z86.39 ; History of hepatitis Z86.19 ; History of high cholesterol Z86.39 and History of seizures Z87.898 [id number] [place] [address] 76301- 6533 Oct, General medical exam Z00.00 ; History of hypertension Z86.79 ; History of hypothyroidism Z86.39 ; Bipolar 2 disorder F31.81 ; PTSD ( post-traumatic stress disorder) F43.10 ; History of hepatitis Z86.19 ; History of high cholesterol Z86.39 ; History of anxiety Z86.59 ; History of seizures Z87.898 ; History of [place] (myocardial infarction) I25.2 and History of COPD Z87.09 [address] [place] [address] 29879- 4735 Oct, Generalized anxiety disorder F41.1 ; Depression F32.9 and PTSD (post-traumatic stress disorder) F43.10 [id number] [place] [address] 26089- 8538 Jan, [id number] [place] [address] 21810- 7082 Jan, [id number] [place] [address] 09458- 9576 Jun, [facility] [address] [place] [id number] Jun, [facility] [address] [facility] [address] [id number] [address]- 7502 May, [facility] [address] [facility] [address] [id number] [address]- 2546 May, [facility] [address] [id number] May, [facility] [address] [facility] [address] [id number], [place] [address]- 2546 May, [facility] [address] [place] [id number] May, [facility] [address] [facility] [address] [id number] [address]- 8846 May, IMMUNIZATIONS No Known Immunizations SOCIAL [...] Medical History Hep C -2004 Medical History [place] x 2 last in 2009 Medical History PTSD (post-traumatic stress disorder) Medical History Colon Cancer 2016 Medical History diabites II Surgical History tonsillectomy 1985 Surgical History partial hysterectomy 2004 Surgical History appendectomy 2004 Hospitalization History Surgery(s) only Hospitalization History pneumonia x3 days Hospitalization History Heart cath with stint 05/15/2016 Hospitalization History Diverticulitis, N/[facility] 01/28/17
--- OUTSIDE RECORDS SUMMARY | 2019-01-26 07:52 | XMS REPORT ---
Author Author GERARDO [facility] Address [address] [place] [address] Care Team Providers Care Molder Punch Name Role Phone MARGI GERARDO Unavailable PROBLEMS Type Condition ICD9-CM Code YRU73-NM Code Onset Dates Condition Status SNOMED Code Problem OAB (overactive bladder) N32.81 Active 202019682 Problem Epilepsy G40.909 Active 16125507 Problem Cervicalgia M54.2 Active 41747715 Problem Other chronic pain G89.29 Active 74316400 Problem Tobacco abuse Z72.0 Active 58214351 Problem Lumbago M54.5 Active 254860625 Problem Hepatitis C B19.20 Active 67912868 Problem COPD (chronic obstructive pulmonary disease) J44.9 Active 30921252 Problem Diabetes E11.9 Active 67714362 Problem Bipolar I disorder with duy F31.10 Active 60575715 Problem Type 2 diabetes mellitus without complications E11.9 Active 074381777 Problem Stress incontinence of urine N39.3 Active 60493213 Problem Bilateral claudication of lower limb I73.9 Active 157748166 Problem Seasonal allergic rhinitis due to other allergic trigger J30.89 Active 002675100 Problem Hyperlipidemia, unspecified hyperlipidemia type E78.5 Active 00519417 Problem Hypertension, unspecified type I10 Active 69053028 Problem Chronic tension-type headache, not intractable G44.229 Active 646959583 Problem 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 mellitus without complication, without long -term current use of insulin E11.9 Active 864367636 Problem Type 2 diabetes mellitus with hyperglycemia E11.65 Active 108468833 Problem Chronic post-traumatic stress disorder (PTSD) F43.12 Active 387112908 Problem History of hypothyroidism Z86.39 Active 299987415 Problem Hypoglycemia E16.2 Active 939431162 Problem El's esophageal ulceration K22.10 Active 076439972 Problem Bipolar affective disorder, currently depressed, mild F31.31 Active 110473204 Problem Irritable bowel syndrome with diarrhea K58.0 Active 995367934 Problem Stress incontinence N39.3 Active 06989954 Problem History of hypertension Z86.79 Active 677396042 Problem Uncontrolled type 2 diabetes mellitus without complication, without long-term current use of insulin E11.65 Active 712019453 Problem Panic disorder with agoraphobia F40.01 Active 52658939 Problem Type 2 diabetes mellitus with hyperglycemia E11.65 Active 719157708 Problem History of seizures Z87.898 Active 756591373 Problem USP current use of insulin Z79.4 Active 162228658 Problem History of AL (myocardial infarction) I25.2 Active 500425615 Problem Mood disorder F39 Active 51227260 Problem Bipolar 2 disorder F31.81 Active 96151339 Problem Gastritis and duodenitis K29.90 Active 351160516 Problem History of high cholesterol Z86.39 Active 192330064 Problem Bipolar I disorder with mood-congruent psychotic features F31.9 Active 281213890 Problem Hypertension, benign I10 Active 02243373 Problem Primary insomnia F51.01 Active 4989608 ALLERGIES Substance Reaction Event Type Date Status Penicillin V Potassium Unknown Drug Allergy Apr, Active Metformin HCl diarrhea Drug Allergy Apr, Active Macrobid stomach upset Drug Allergy Apr, Active Iodine anaphylaxis Drug Allergy Apr, Active Fentanyl halucinations/insomnia Drug Allergy Apr, Active ENCOUNTERS Encounter Location Date Diagnosis [place] [address] [address] 10837- 9371 Jul, [place] [address] [place] [id number] [place] [address] 53103- 0837 23 Jun, 2018 Type 2 diabetes mellitus with hyperglycemia E11.65 [facility] [address] [place] [id number] [place] [address] 63613- 6294 17 Jun, 2018 [place] [address] [place] [id number] [place] [address] 02025- 6884 16 Jun, 2018 [place] [address] [place] [id number] [address] 68713- 3819 14 Jun, 2018 Bipolar affective disorder, currently depressed, mild F31.31 ; Chronic post-traumatic stress disorder (PTSD) F43.12 and Panic disorder with agoraphobia F40.01 [facility] [address] [id number] [place] [address] 60[address] Jun, [facility] [address] [id number] [place] [address] 8[address] Jun, [facility] [address] [facility] [id number] [place] [address] 2187 Jun, Type 2 diabetes mellitus with hyperglycemia E11.65 [facility] [address] [facility] [id number] [place] [address] 8095 Jun, Uncontrolled type 2 diabetes mellitus with hyperglycemia E11.65 [facility] [address] [id number] [place] [address]- 5475 Jun, [facility] [address] [facility] [id number] [place] [address] 5112 May, Lumbago M54.5 [facility] [address] [facility] [id number] [place] [id number] May, [facility] [address] [facility] [id number] [place] [address]- 6225 May, [facility] [address] [facility] [id number] [place] [address]- 7603 May, [facility] [address] [facility] [id number] [place] [address]- 5772 May, [facility] [address] [facility] [id number] [place] [address]- 0758 May, [facility] [address] [facility] [id number] [place] [address]- 4158 May, [facility] [address] [facility] [id number] [place] [address] May, [facility] [address] [facility] [id number] [place] [address] May, Lumbago M54.5 [facility] [address] [facility] [id number] [address] 2766 May, [facility] [address] [address] 97351- [address] Apr, [address] of the chest R93.8 [facility] [address] [place] [id number] [address] 02521- 4478 Apr, Bipolar 2 disorder F31.81 ; Chronic post-traumatic stress disorder (PTSD) F43.12 and Panic disorder with agoraphobia F40.01 [place] [address] [place] [id number] [address] 25270- [address] Apr[address] of the chest R93.8 [place] [address] [address] [address], [address] of the chest R93.8 [place] [address] [place] [id number] [address] 10861- 3330 Apr, [place] [address] [place] [id number] [place] [address] 78313- 4698 Apr, Type 2 diabetes mellitus with hyperglycemia E11.65 [place] [address] [place] [id number] [address] 20142- 5082 Apr, 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 mellitus without complication, without long-term current use of insulin E11.9 ; Watery eyes H04.203 ; Low back pain M54.5 ; Other chronic pain G89.29 ; Chronic tension-type headache, not intractable G44.229 ; Uncontrolled type 2 diabetes mellitus without complication , without long-term current use of insulin E11.65 and Bronchitis J40 [place] [address] [address] 79496- 8594 Apr, [place] [address] [place] [id number] [place] [address] 76327- 8832 Apr, Lumbago M54.5 [place] [address] [place] [id number] [place] [address] 80777- 4685 March, [facility] [address] [place] [address] March, Cough R05 ; Pneumonia due to infectious organism, unspecified laterality, unspecified part of lung J18.9 and Non-intractable vomiting with nausea, unspecified vomiting type R11.2 [place] [address] [place] [id number] [address] 32079- 7724 March, Bronchitis J40 [place] [address] 37260- 5975 March, [place] [address] 56408- 7729 March, El's esophageal ulceration K22.10 and Type 2 diabetes mellitus with hyperglycemia E11.65 [place] [address] [place] [id number] [address] 53046- 7025 March, Panic disorder with agoraphobia F40.01 ; Chronic post- traumatic stress disorder (PTSD) F43.12 and Bipolar 2 disorder F31.81 [place] [address] [place] [id number] [address] 96433- 2371 March, Type 2 diabetes mellitus with hyperglycemia E11.65 [place] [address] [place] [id number] [address] 45281- 5282 March, [place] [address] [place] [id number] [address] 69132- 1754 March, Lumbago M54.5 [place] [address] [place] [id number] [address] 28972- 2514 March, [place] [address] [place] [id number] [address] 31967- 9334 March, Irritable bowel syndrome with diarrhea K58.0 ; Primary insomnia F51.01 ; Type 2 diabetes mellitus with hyperglycemia E11.65 and technician terminal and repeater current use of insulin Z79.4 [place] [address] [place] [id number] [place] [address] 02237- 7349 March, [place] [address] [place] [address]- 8110 Jan, [facility] [address] [place] [id number] [address] 59961- 0944 Jan, [facility] [address] [place] [id number] [address] 32186- 7813 Jan, [place] [address] [place] [id number] [address] 13372- 6004 Jan, [place] [address] [place] [id number] [address] 48835- 0951 Jan, Dizziness R42 [place] [address] 84106- 8985 Jan, Bipolar affective disorder, currently depressed, mild F31.31 ; Panic disorder with agoraphobia F40.01 and Chronic post-traumatic stress disorder (PTSD) F43.12 [place] [address] [place] [id number] [address] 85976- 0862 Jan, Dizziness R42 [place] [address] [place] [id number] [address] 64490- 2773 Jan, Chest pain, unspecified type R07.9 ; Exertional dyspnea R06.09 ; Hypertension, unspecified type I10 and Hyperlipidemia, unspecified hyperlipidemia type E78.5 [place] [address] [place] [id number] [address] 73262- 0141 Jan, [place] [address] [place] [id number] [address] 18348- 6038 Jan, Lumbago M54.5 [place] [address] [place] [id number] [address] 29840- 0765 Jan, El's esophageal ulceration K22.10 ; Blister (nonthermal ) of oral cavity, initial encounter S00.522A ; Local infection of the skin and subcutaneous tissue, unspecified L08.9 ; Type 2 diabetes mellitus with hyperglycemia E11.65 ; technician terminal and repeater current use of insulin Z79.4 and Stress incontinence N39.3 [facility] [address] [address] 3178 27 Dec, 2017 [facility] [address] [place] [id number] [address] 41429- 1724 27 Dec, 2017 [facility] [address] [place] [id number] [address] 85937- 0506 19 Dec, 2017 [facility] [address] [id number] 16 Dec, 2017 Dental examination Z01.20 [facility] [address] [place] [id number] [address] 00740- 9916 15 Dec, 2017 Acute pain of right knee M25.561 [facility] [address] [place] [id number] [address] 88772- 8769 14 Dec, 2017 [facility] [address] [place] [id number] [address] 52718- 3886 14 Dec, 2017 [facility] [address] [place] [id number] [address] 99577- 2424 14 Dec, 2017 Lumbago M54.5 ; Acute pain of right knee M25.561 and Seasonal allergic rhinitis due to other allergic trigger J30.89 [facility] [address] [address] 78935- 9426 Dec, Type 2 diabetes mellitus with hyperglycemia E11.65 [facility] [address] [place] [id number] [address] 33499- 7970 Dec, [facility] [address] [place] [id number] [address] 58068- 2544 Dec, [facility] [address] [place] [id number] [address] 83088- 0795 Dec, [facility] [address] [place] [id number] [address] 42583- 9535 Dec, [facility] [address] [place] [id number] [address] 35316- 5882 Dec, Chronic post-traumatic stress disorder (PTSD) F43.12 and Panic disorder with agoraphobia F40.01 [facility] [address] [place] [id number] [address] 30205- 2478 13 Dec, 2017 Low back pain M54.5 [facility] [address] [place] [id number] [address] 86110- 5262 12 Dec, 2017 Type 2 diabetes mellitus with hyperglycemia E11.65 ; technician terminal and repeater current use of insulin Z79.4 ; Low back pain M54.5 ; Other chronic pain G89.29 and Encounter for therapeutic drug level monitoring Z51.81 [facility] [address] [place] [id number] [address] 92602- 4703 09 Dec, 2017 Coughing R05 [facility] [address] [place] [id number] [address] 45809- 7995 09 Dec, 2017 [facility] [address] [id number] Dec, 2017 Dental examination Z01.20 [facility] [address] [place] [id number] [address] 28400- 3915 Nov, Type 2 diabetes mellitus without complications E11.9 and Encounter for therapeutic drug level monitoring Z51.81 [facility] [address] [place] [id number] [address] 46836- 3976 Nov, [facility] [address] [place] [id number] [address] 09303- 6159 Oct, Type 2 diabetes mellitus without complications E11.9 [facility] [address] [place] [id number] [address] 64404- 6881 Oct, Type 2 diabetes mellitus with hyperglycemia E11.65 [facility] [address] [place] [id number] [address] 92869- 1576 Aug, Type 2 diabetes mellitus without complications E11.9 [facility] [address] [place] [id number] [address] 41595- 4887 Aug, Type 2 diabetes mellitus without complications E11.9 ; Hypoglycemia E16.2 ; Lumbago M54.5 ; Stress incontinence of urine N39.3 and History of AL (myocardial infarction) I25.2 [facility] [address] [place] [id number] [address] 74652- 3755 Jun, [facility] [address] [place] [id number] [address] 44953- 9119 May, [facility] [address] [place] [id number] [address] 29307- 4453 Apr, Panic disorder with agoraphobia F40.01 [facility] [address] [place] [id number] [address] 48906- 6317 Apr, Panic disorder with agoraphobia F40.01 [facility] [address] [place] [id number] [address] 17813- 3437 Apr, [facility] [address] [place] [id number] [address] 83700- 5083 March, Other chronic pain G89.29 [facility] [address] [place] [id number] [address] 98378- 4472 March, [facility] [address] [place] [id number] [address] 05129- 4644 March, [facility] [address] [place] [address] [address]- 8099 March, [facility] [address] [place] [id number] [address] 51798- 8005 March, [facility] [address] [place] [id number] [address] 82060- 8634 March, Type 2 diabetes mellitus without complications E11.9 [facility] [address] [place] [id number] [address] 70721- 4138 March, Diarrhea, unspecified type R19.7 [facility] [address] [place] [id number] [address] 26905- 1743 March, Bipolar 2 disorder F31.81 ; Chronic post-traumatic stress disorder (PTSD) F43.12 and Type 2 diabetes mellitus with hyperglycemia E11.65 [place] [address] [address] 04448- 6769 March, [place] [address] [place] [id number] [address] 83085- 7242 March, [place] [address] [place] [id number] [address] 90464- 3993 March, Hypertension, benign I10 ; Type 2 diabetes mellitus with hyperglycemia E11.65 ; Hepatitis C B19.20 ; Gastritis and duodenitis K29.90 and Dysuria R30.0 [place] [address] [place] [id number] [address] 62365- 1621 March, Hypertension, benign I10 ; Type 2 diabetes mellitus with hyperglycemia E11.65 ; Hepatitis C B19.20 ; Gastritis and duodenitis K29.90 and Dysuria R30.0 [place] [address] [place] [id number] [address] 68309- 6788 March, Panic disorder with agoraphobia F40.01 ; Chronic post- traumatic stress disorder (PTSD) F43.12 ; Epilepsy G40.909 and Bipolar I disorder with mood-congruent psychotic features F31.9 [place] [address] [address]- 5342 March, [place] [address] [address] 23608- 5329 March, Type 2 diabetes mellitus with hyperglycemia E11.65 [place] [address] [address] 92944- 4898 Jan, Bipolar I disorder with duy F31.10 [place] [address] [address] 96232- 3006 Jan, Bipolar 2 disorder F31.81 ; Chronic post-traumatic stress disorder (PTSD) F43.12 and Type 2 diabetes mellitus with hyperglycemia E11.65 [place] [address], [place] [address]- 2499 17 Jan, 2017 [facility] [address] [place] [id number] [address] 54273- 9415 17 Jan, 2017 [facility] [address] [place] [id number] [address] 29988- 5874 14 Jan, 2017 Panic disorder with agoraphobia F40.01 [facility] [address] [place] [id number] [address] 09296- 7298 13 Jan, 2017 Panic disorder with agoraphobia F40.01 ; Bipolar I disorder with mood-congruent psychotic features F31.9 ; Chronic post-traumatic stress disorder (PTSD) F43.12 and Epilepsy G40.909 [facility] [address] [place] [id number] [address] 93436- 1605 Jan, [place] [address] [place] [id number] [address] 51425- 2829 Jan, [facility] [address] [place] [id number] [address] 55253- 4848 10 Jan, 2017 Type 2 diabetes mellitus without complications E11.9 and Hypoglycemia E16.2 [place] [address] [place] [id number] [address] 85215- 4290 07 Jan, 2017 Type 2 diabetes mellitus without complications E11.9 ; Primary insomnia F51.01 and Hypertension, benign I10 [facility] [address] [place] [id number] [address] 93539- 7660 Jan, [facility] [address] [place] [id number] [address] [id number] Jan, [facility] [address] [address] 51520- 7458 Dec, Type 2 diabetes mellitus with hyperglycemia E11.65 [facility] [address], [place] [address]- 3765 Dec, [facility] [address] [place] [id number] [address] 98386- 9108 Dec, Bipolar 2 disorder F31.81 ; Panic disorder with agoraphobia F40.01 ; Chronic post-traumatic stress disorder (PTSD) F43.12 and Epilepsy G40.909 [facility] [address] [place] [id number] [address] 54305- 8712 Dec, [facility] [address] [place] [id number] [address] 64285- 9523 Dec, [facility] [address] [place] [id number] [address] 45649- 7027 Dec, Bipolar 2 disorder F31.81 ; Panic disorder with agoraphobia F40.01 ; Chronic post-traumatic stress disorder (PTSD) F43.12 and Epilepsy G40.909 [place] [address] [place] [id number] [address] 98669- 7446 Dec, [place] [address] 87143- 3031 Dec, [facility] [address] [place] [id number] [address] 84712- 3880 Dec, [facility] [address] [place] [id number] [address] 19535- 3422 Dec, Type 2 diabetes mellitus with hyperglycemia E11.65 ; USP current use of insulin Z79.4 and Lumbago M54.5 [place] [address] [place] [id number] [address] 03885- 3517 Dec, [facility] [address] [place] [id number] [address] 24694- 2791 Dec, [facility] [address] 81034- 3619 Dec, [facility] [address] [place] [id number] [address] 32379 -3618 Dec, Pain of left leg M79.605 and Pain in right leg M79.604 [place] [address] [place] [id number] [address] 72235- 7794 14 Dec, 2016 [place] [address] [place] [id number] [place] [address] 13762- 1152 08 Dec, 2016 Type 2 diabetes mellitus with hyperglycemia E11.65 [place] [address] [place] [id number] [place] [address] 92635- 8951 06 Dec, 2016 [place] [address] [place] [id number] [address] 16132- 0856 Dec, Type 2 diabetes mellitus with hyperglycemia E11.65 ; technician terminal and repeater current use of insulin Z79.4 ; Vagina, candidiasis B37.3 and Other chronic pain G89.29 [place] [address] [place] [id number] [address] 60520- 2833 Nov, Panic disorder with agoraphobia F40.01 [place] [address] [place] [id number] [address] 97638- 0558 Nov, [place] [address] [place] [id number] [place] [address] [phone] Nov, [facility] [address] [id number] [place] [address] [phone] Nov, Hypoglycemia E16.2 [facility] [place] [address] [id number] [place] [address] [phone] Nov, [facility] [address] [place] [id number] [place] [address] [phone] Nov, [place] [id number] [place] [address] [phone] Nov, [place] [address] [place] [place] [id number] [place] [address] [phone] Nov, Type 2 diabetes mellitus with hyperglycemia E11.65 and technician terminal and repeater current use of insulin Z79.4 [facility] [id number] [place] [address] [phone]- [phone] Nov, Panic disorder with agoraphobia F40.01 ; Bipolar 2 disorder F31.81 ; Chronic post-traumatic stress disorder (PTSD) F43.12 and Epilepsy G40.909 [facility] [id number] [place] [address] [phone]- [phone] Nov, Panic disorder with agoraphobia F40.01 [facility] [id number] [place] [address] 61205- 2196 16 Oct, 2016 [facility] [id number] [address] 14632- 3997 Oct, [facility] [id number] [place] [address] 29933- 6669 Oct, Bipolar 2 disorder F31.81 ; Panic disorder with agoraphobia F40.01 and Mood disorder F39 [facility] [id number] [place] [address] 11498- 3598 Oct, Diabetes E11.9 ; Type 2 diabetes mellitus with hyperglycemia E11.65 and USP current use of insulin Z79.4 [facility] [id number] [place] [address] 45248- 6825 Oct, [facility] [id number] [place] [address] 71529- 5343 Sep, [facility] [id number] [place] [address] 11683- 4788 Sep, Bipolar 2 disorder F31.81 and Mood disorder F39 [facility] [id number] [place] [address] 33584- 5934 Sep, [facility] [id number] [place] [address] 19463- 5960 Sep, Uncontrolled type 2 diabetes mellitus without complication, without long-term current use of insulin E11.65 [facility] [id number] [place] [address] 61072- 2310 Sep, [facility] [id number] [place] [address] 62252- 1118 Sep, [facility] [address] [address] 6800 Sep, [facility] [id number] [place] [address] 75611- 1143 Sep, [facility] [address], [place] [address] 2657 Sep, Bipolar 2 disorder F31.81 ; Chronic post-traumatic stress disorder (PTSD) F43.12 ; Panic disorder with agoraphobia F40.01 and Epilepsy G40.909 [facility] [address] [address] 15139- 3637 Sep, Bipolar 2 disorder F31.81 ; PTSD (post-traumatic stress disorder) F43.10 and Panic disorder with agoraphobia F40.01 [facility] [id number] [place] [address] 43475- 9851 Sep, [facility] [id number] [place] [address] 09936- 1186 Aug, History of seizures Z87.898 ; Panic disorder with agoraphobia F40.01 and Bipolar 2 disorder F31.81 [facility] [address], [place] [address] 3841 Aug, [facility] [address], [place] [address] 9223 17 Aug, 2016 [facility] [address], [place] [address] 5494 Aug, [facility] [address], [place] [address]- 5602 Aug, [facility] [address], [place] [address]- 1090 Aug, [facility] [address] [address]- 9936 Aug, [facility] [id number] [place] [address] 28521- 7613 Aug, Hypoglycemia E16.2 and Bilateral impacted cerumen H61.23 [facility] [address] 90187- 6956 Aug, [facility] [id number] [place] [address] 60830- 9414 Jul, [facility] [address] 61545- 0874 Jul, [facility] [id number] [address] 74477- 5715 Jul, Bipolar 2 disorder F31.81 ; Panic disorder with agoraphobia F40.01 ; PTSD (post-traumatic stress disorder) F43.10 and Epilepsy G40.909 [facility] [address] 89617- 3317 Jul, [facility] [address] 03510- 4989 Jul, Type 2 diabetes mellitus without complications E11.9 and Coughing R05 [facility] [id number] [place] [address] 16752- 8474 Jul, [facility] [id number] [place] [address] 38831- 6611 Jun, [facility] [id number] [place] [address] 30198- 8638 Jun, Bipolar 2 disorder F31.81 ; PTSD (post-traumatic stress disorder) F43.10 and Panic disorder with agoraphobia F40.01 [facility] [id number] [address] 28047- 9133 Jun, [facility] [id number] [place] [address] 14075- 3216 Jun, [facility] [id number] [place] [address] 68329- 3034 Jun, [facility] [id number] [address] 49683- 0267 Jun, Type 2 diabetes mellitus without complications E11.9 and COPD (chronic obstructive pulmonary disease) J44.9 [facility] [address] [id number] May, Dental examination Z01.20 and Dental caries K02.9 [facility] [id number] [place] [address] 48827- 0964 May, Bipolar 2 disorder F31.81 ; PTSD (post-traumatic stress disorder) F43.10 and Panic disorder with agoraphobia F40.01 [facility] [id number] [address] 87357- 5004 May, Lumbago with sciatica, right side M54.41 ; Other chronic pain G89.29 and Uncontrolled type 2 diabetes mellitus without complication, without long-term current use of insulin E11.65 [facility] [id number] [address] 62148- 5559 May, Chronic bronchitis, unspecified chronic bronchitis type J42 [facility] [id number] [address] 29750- 6761 May, [facility] [id number] [place] [address] 71208- 5628 May, [facility] [id number] [address] 31397- 3476 May, Chest pain, unspecified type R07.9 ; [...] and Bipolar 2 disorder F31.81 [facility] [id number] [address] 31185- 2595 05 May, 2016 Bipolar 2 disorder F31.81 ; Panic disorder with agoraphobia F40.01 and Tobacco abuse Z72.0 [facility] [id number] [place] [address] 48204- 3353 30 Apr, 2016 [facility] [id number] [place] [address] 23911- 3661 Apr, [facility] [id number] [place] [address] 88940- 6104 Apr, [facility] [id number] [address] 91889- 7747 Apr, Bipolar 2 disorder F31.81 ; Panic disorder with agoraphobia F40.01 and PTSD (post-traumatic stress disorder) F43.10 [facility] [id number] [address] 09817- 3822 Apr, Chronic bronchitis, unspecified chronic bronchitis type J42 ; Cervical neuritis M54.12 and Thoracic neuritis M54.14 [facility] [id number] [address] 73126- 8654 Apr, [facility] [id number] [place] [address] 97752- 3532 Apr, Cervicalgia M54.2 [facility] [id number] [address] 32007- 8809 14 Apr, 2016 Bipolar 2 disorder F31.81 ; Panic disorder with agoraphobia F40.01 and PTSD (post-traumatic stress disorder) F43.10 [facility] [id number] [address] 01106 -7909 13 Apr, 2016 [facility] [address] [place] [id number] [address] 82188 -0083 09 Apr, 2016 Cough R05 and Tobacco dependence F17.200 [facility] [id number] [place] [address] 67225- 7104 06 Apr, 2016 [facility] [address] [place] [address] 79278- 1060 Apr, [facility] [id number] [address] 23200- 0940 March, Bipolar 2 disorder F31.81 ; Panic disorder with agoraphobia F40.01 and Generalized anxiety disorder F41.1 [facility] [id number] [address] 06837- 1967 March, Closed displaced fracture of fifth metatarsal bone of right foot with routine healing, subsequent encounter S92.351D [facility] [id number] [place] [address] 81824- 4495 March, Bronchitis J40 [facility] [id number] [place] [address] 32469- 9672 March, [facility] [id number] [address] 69202- 4829 March, [facility] [id number] [address] 73656- 5237 March, Foot pain, right M79.671 ; Cervicalgia M54.2 and 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 mellitus without complication, unspecified group home insulin use status E11.9 [facility] [address] [address] 11729- 2985 March, Fracture of fifth metatarsal bone of right foot S92.351A [facility] [id number] [address] 46958- 3933 March, [facility] [id number] [place] [address] 52765- 0905 Jan, Fracture of fifth metatarsal bone of right foot S92.351A [facility] [address] [address] 91672- 6003 Jan, Bipolar 2 disorder F31.81 ; PTSD (post-traumatic stress disorder) F43.10 ; Panic disorder with agoraphobia F40.01 and Epilepsy G40.909 [facility] [id number] [address] 54204- 2422 Jan, History of AL (myocardial infarction) I25.2 and History of high cholesterol Z86.39 [facility] [id number] [address] 01511- 0539 Jan, Bipolar 2 disorder F31.81 ; Panic disorder with agoraphobia F40.01 ; Tobacco abuse Z72.0 and PTSD (post-traumatic stress disorder) F43.10 [facility] [id number] [address] 97782- 2915 Jan, Fracture of fifth metatarsal bone of right foot S92.351A [facility] [address] 87884- 3961 Jan, [facility] [address] 16659- 4147 Jan, History of high cholesterol Z86.39 [facility] [id number] [address] 23035- 4000 Jan, History of AL (myocardial infarction) I25.2 [facility] [id number] [address] 50062- 3236 Jan, [facility] [id number] [address] 87430- 8403 31 Jan, 2016 Back pain M54.9 ; Diabetes E11.9 ; Right knee pain M25.561 and Chest pain R07.9 [facility] [id number] [address] 03484- 0937 Dec, [facility] [address] 22737- 0889 24 Jan, 2016 [facility] [id number] [address] 87002- 3457 Dec, Cervicalgia M54.2 [facility] [address] 24685- 6859 Dec, Bipolar 2 disorder F31.81 ; PTSD (post-traumatic stress disorder) F43.10 ; Panic disorder with agoraphobia F40.01 and Epilepsy G40.909 [facility] [id number] [address] 41002- 7444 Dec, Bipolar 2 disorder F31.81 ; PTSD (post-traumatic stress disorder) F43.10 and Panic disorder with agoraphobia F40.01 [facility] [address] 37445- 6921 Dec, Diabetes E11.9 [facility] [address] 89505- 3233 Dec, [facility] [id number] [place] [address] 52554- 1176 Dec, Other chronic pain G89.29 ; Hepatitis C B19.20 and History of seizures Z87.898 [facility] [id number] [address] 06200- 8435 Dec, [facility] [address] 40528- 3709 Dec, Bipolar 2 disorder F31.81 and Other chronic pain G89.29 [facility] [id number] [address] 57689- 5078 Dec, Cervicalgia M54.2 and Diabetes E11.9 [facility] [id number] [address] 12517- 8874 Dec, [facility] [address] 56481- 6951 Dec, [facility] [id number] [address] 05122- 1460 Dec, [facility] [id number] [place] [address] 47458- 8451 Dec, [facility] [id number] [place] [address] 10114- 6053 12 Dec, 2015 Type 2 diabetes mellitus without complications E11.9 [facility] [id number] [place] [address] 49505- 1518 10 Dec, 2015 [facility] [address] 16576- 6793 Dec, History of seizures Z87.898 and Hepatitis C B19.20 [facility] [address] 66820- 1579 Dec, Hepatitis C B19.20 [facility] [address] 02371- 5872 Dec, [facility] [address] 01789- 8183 Dec, Cervicalgia M54.2 ; COPD (chronic obstructive pulmonary disease) J44.9 and Hepatitis C B19.20 [facility] [id number] [address] 69928- 3443 Dec, Bipolar 2 disorder F31.81 ; History of hypertension Z86.79 ; History of anxiety Z86.59 ; Panic disorder with agoraphobia F40.01 and Epilepsy G40.909 [facility] [id number] [address] 40245- 4167 Nov, [facility] [id number] [place] [address] 09686- 5987 Nov, [facility] [id number] [address] 47057- 3382 Nov, History of seizures Z87.898 ; OAB (overactive bladder) N32.81 ; Lumbago M54.5 ; Other chronic pain G89.29 ; Cervicalgia M54.2 ; Tobacco abuse Z72.0 ; Tobacco abuse counseling Z71.6 and Impaired fasting glucose R73.01 [facility] [address] [place] [address]- 5491 Nov, Bipolar 2 disorder F31.81 ; PTSD (post-traumatic stress disorder) F43.10 ; History of anxiety Z86.59 ; History of COPD Z87.09 ; Panic disorder with agoraphobia F40.01 and Moderate depressed bipolar I disorder F31.32 [place] [id number] [address] 84091- 4549 12 Nov, 2015 PTSD (post-traumatic stress disorder) F43.10 [facility] [address] [id number] 11 Nov, 2015 Dental examination Z01.20 and Dental caries K02.[address] 31697- 7034 08 Nov, 2015 History of hypertension Z86.79 ; History of hypothyroidism Z86.39 ; History of high cholesterol Z86.39 ; History of COPD Z87.09 and Overactive bladder N32.[address] 84362- 9524 Nov, Bipolar 2 disorder F31.81 and PTSD (post-traumatic stress disorder) F43.10 [place] [id number] [address] 56688- 6106 Nov, PTSD (post-traumatic stress disorder) F43.10 ; Panic disorder with agoraphobia F40.01 ; Epilepsy G40.909 and Moderate depressed bipolar I disorder F31.32 [facility] [id number] [address] 03116- 2530 Nov, [address] 81048- 6068 Nov, [address] 57268- 2625 Oct, [facility] [address] 23620- 0963 Oct, Generalized anxiety disorder F41.1 ; Major depression, recurrent F33.9 and PTSD (post-traumatic stress disorder) F43.10 [facility] [address] [address] 51561- 0297 Oct, Elevated fasting glucose R73.01 [facility] [id number] [address] 52219- 1951 Oct, Elevated fasting glucose R73.01 [facility] [address] 09220- 7998 Oct, History of COPD Z87.09 [place] [id number] [address] 16554- 2613 15 Oct, 2015 General medical exam Z00.00 ; History of hypertension Z86.79 ; History of hypothyroidism Z86.39 ; History of hepatitis Z86.19 ; History of high cholesterol Z86.39 and History of seizures Z87.898 [place] [id number] [address] 39008- 6825 Oct, General medical exam Z00.00 ; History of hypertension Z86.79 ; History of hypothyroidism Z86.39 ; Bipolar 2 disorder F31.81 ; PTSD ( post-traumatic stress disorder) F43.10 ; History of hepatitis Z86.19 ; History of high cholesterol Z86.39 ; History of anxiety Z86.59 ; History of seizures Z87.898 ; History of AL (myocardial infarction) I25.2 and History of COPD Z87.09 [facility] [id number] [address] 94651- 0723 Oct, Generalized anxiety disorder F41.1 ; Depression F32.9 and PTSD (post-traumatic stress disorder) F43.10 [place] [id number] [address] 65065- 6891 Jan, [facility] [id number] [address] 44808- 8303 Jan, [place] [id number] [place] [address] 77773- 0947 Jun, [facility] [address] [place] [id number] Jun, [facility] [address] [facility] [id number] [address]- 9236 May, [facility] [address] [facility] [id number] [address] 2546 May, [facility] [address] [place] [id number] May, [facility] [address] [facility] [id number] [address] 2546 May, [facility] [address] [place] [id number] May, [facility] [address] [facility] [id number] [address] 2546 May, IMMUNIZATIONS No Known Immunizations SOCIAL HISTORY Never Assessed REASON FOR VISIT Diabetes, PT was advised to speak with on getting help with Brady Levine MA PLAN OF CARE Activity Details Follow Up 2 Months Reason:dm2 VITAL SIGNS Height 62 in 2018-04-12 Weight 165.3 lbs 2018-04-12 Temperature 97.6 degrees Fahrenheit 2018-04-12 Heart Rate 110 bpm 2018-04-12 Respiratory Rate 20 2018-04-12 Oximetry 97 % 2018-04-12 BMI 30.23 kg/m2 2018-04-12 Blood pressure systolic 104 mmHg 2018-04-12 Blood pressure diastolic 82 mmHg 2018-04-12 MEDICATIONS Medication Instructions Dosage Frequency Start Date End Date Duration Status Ventolin HFA 108 (90 Base) MCG/ACT Inhalation every 6 hrs 2 puffs as needed 6h Active Blood Glucose Monitor System w/Device DX- E11.9 Test fasting and 2 hours after meal test 3 times per day Dec, Active Bluford 10-325 MG Orally 3 times a day 1 tablet as needed 8h Apr, 28 days Active Insulin Syringe 31G X 5/16 subcutaneously 4 times a day Inject insulin 4 times daily as prescribed 6h Oct, Active Promethazine-Codeine 6.25-10 MG/5ML Orally every 6 hrs 5 ml as needed 6h March, Not-Taking Nebulizer 1 as directed Apr, Active Levothyroxine Sodium 150 MCG Orally Once a day 1 tablet 24h Oct, Active Zofran ODT 4 MG Orally Every 8 hours PRN 1 tablet on the tongue and allow to dissolve 5 days Not-Taking Symbicort 160-4.5 MCG/ACT Inhalation Twice a day- rinse mouth and spit after use 2 puffs every day Apr, Active Atenolol 50 mg Orally Once a day 1 tablet 24h 30 Active Albuterol Sulfate 1.25 MG/3ML Inhalation 4 times a day 3 ml as needed 6h Apr, Active Xanax 2 MG Orally 3 times a day and can take 1/2 additional tablet for panic 1 tablet Active Montelukast Sodium 10 mg Orally Once a day 1 tablet 24h Oct, 30 days Active Microlet Lancets - as directed 8h March, Active Blood Glucose Monitor 1 glucometer test blood sugar Apr, Active Protonix 40 MG Orally Once a day 1 tablet 24h Jan, 30 day(s) Active Cromolyn Sodium 4 % Ophthalmic Four times a day 1 drop into affected eye 6h Apr, Active NovoLog 100 UNIT/ML DX E11.9 3 times a day before meals Inject 40 units Dec, Active Xyzal 5 MG Orally Once a day 1 tablet in the evening 24h 30 Active Blood Glucose Test Strip And lancets. DX E11.9 Test fasting and 2 hours after meal test 3 times per day Dec, Active Ditropan XL 10 mg Orally Once a day 1 tablet 24h Jan, Jun, 30 day(s) Active Metoprolol Tartrate 25 MG Orally Twice a day for panic 1 tablet with food March, 30 day(s) Not-Taking Levemir 100 UNIT/ML Subcutaneous 2 times a day Inject 65 units 12h Dec, Active Cali Contour Next Test - In Vitro 3 times a day as directed 8h March, Active Cyclobenzaprine HCl 10 mg Orally Three times a day 1 tablet as needed 8h Apr, 30 days Active Amitriptyline HCl 25 MG Orally Once at bedtime for sleep 1 tablet March 30 day(s) Active Lipitor 40 mg Orally Once a day 1 tablet 24h Active Aspirin 81 MG TAKE ONE TABLET BY MOUTH ONCE DAILY 30 Active RESULTS Name Result Date Reference Range A1C (IN HOUSE) 2018-04-12 A1C IN HOUSE 7.6 4.3 - 5.6 % Previous A1c 7.8 Lot [id number] Exp date 01/2020 PROCEDURES Procedure Date Ordered Result Body Site GLYCATED HEMOGLOBIN TEST April 12, 2018 INSTRUCTIONS MEDICATIONS ADMINISTERED No Known Medications MEDICAL (GENERAL) HISTORY Type Description Date Medical History Hypothyroidism Medical History High cholesterol Medical History Hypertension Medical History Brain seizure Medical History Asthma Medical History COPD Medical History Hep C -2005 Medical History AL x 2 last in 2009 Medical History PTSD (post-traumatic stress disorder) Medical History Colon Cancer 2016 Medical History diabites II Surgical History tonsillectomy 1985 Surgical History partial hysterectomy 2004 Surgical History appendectomy 2004 Hospitalization History Surgery(s) only Hospitalization History pneumonia x3 days Hospitalization History Heart cath with stint 05/15/2016 Hospitalization History Diverticulitis, N/V-[facility] 01/28/17
--- OUTSIDE RECORDS SUMMARY | 2019-01-26 07:53 | XMS REPORT ---
Author Author GERARDO KISER [facility] Address [address] [place] [address] Care Team Providers Care Health Consultant Name Role Phone MARGI GERARDO Unavailable PROBLEMS Type Condition ICD9-CM Code UXM10-PN Code Onset Dates Condition Status SNOMED Code Problem OAB (overactive bladder) N32.81 Active 392252868 Problem Epilepsy G40.909 Active 60363918 Problem Cervicalgia M54.2 Active 26840452 Problem Other chronic pain G89.29 Active 57018641 Problem Tobacco abuse Z72.0 Active 69904874 Problem Lumbago M54.5 Active 873205692 Problem Hepatitis C B19.20 Active 42258100 Problem COPD (chronic obstructive pulmonary disease) J44.9 Active 12634738 Problem Diabetes E11.9 Active 98338434 Problem Bipolar I disorder with duy F31.10 Active 86195352 Problem Type 2 diabetes mellitus without complications E11.9 Active 847025765 Problem Stress incontinence of urine N39.3 Active 63985286 Problem Bilateral claudication of lower limb I73.9 Active 687321663 Problem Seasonal allergic rhinitis due to other allergic trigger J30.89 Active 104850842 Problem Hyperlipidemia, unspecified hyperlipidemia type E78.5 Active 91416345 Problem Hypertension, unspecified type I10 Active 57870203 Problem Chronic tension-type headache, not intractable G44.229 Active 255485024 Problem 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 mellitus without complication, without long -term current use of insulin E11.9 Active 373155957 Problem Type 2 diabetes mellitus with hyperglycemia E11.65 Active 622130548 Problem Chronic post-traumatic stress disorder (PTSD) F43.12 Active 626502813 Problem History of hypothyroidism Z86.39 Active 887133391 Problem Hypoglycemia E16.2 Active 075226453 Problem El's esophageal ulceration K22.10 Active 682916966 Problem Bipolar affective disorder, currently depressed, mild F31.31 Active 847597142 Problem Irritable bowel syndrome with diarrhea K58.0 Active 768370440 Problem Stress incontinence N39.3 Active 70807124 Problem History of hypertension Z86.79 Active 651021130 Problem Uncontrolled type 2 diabetes mellitus without complication, without long-term current use of insulin E11.65 Active 652229790 Problem Panic disorder with agoraphobia F40.01 Active 46511200 Problem Type 2 diabetes mellitus with hyperglycemia E11.65 Active 326660404 Problem History of seizures Z87.898 Active 356010280 Problem long-term current use of insulin Z79.4 Active 045953566 Problem History of DC (myocardial infarction) I25.2 Active 945497672 Problem Mood disorder F39 Active 16879051 Problem Bipolar 2 disorder F31.81 Active 51483705 Problem Gastritis and duodenitis K29.90 Active 063102029 Problem History of high cholesterol Z86.39 Active 049752035 Problem Bipolar I disorder with mood-congruent psychotic features F31.9 Active 954816050 Problem Hypertension, benign I10 Active 53240502 Problem Primary insomnia F51.01 Active 2538121 ALLERGIES No Information ENCOUNTERS Encounter Location Date Diagnosis [place] [address] [address] 11 Jul, 2018 [place] [address] [address]- 8478 23 Jun, 2018 Type 2 diabetes mellitus with hyperglycemia E11.65 [place] [address] [place] [id number] [place] [address] 70891- 5685 17 Jun, 2018 [place] [address] 13755- 8609 16 Jun, 2018 [place] [address] [place] [id number] [place] [address] 00666- 5275 14 Jun, 2018 Bipolar affective disorder, currently depressed, mild F31.31 ; Chronic post-traumatic stress disorder (PTSD) F43.12 and Panic disorder with agoraphobia F40.01 [facility] [address] [place] [id number] [place] [address] 04878- 6886 14 Jun, 2018 [place] [address] [address]25- 1409 Jun, [facility] [address] [facility] [id number] [address] Jun, Type 2 diabetes mellitus with hyperglycemia E11.65 [facility] [address] [facility] [id number], [place] [address] 2543 Jun, Uncontrolled type 2 diabetes mellitus with hyperglycemia E11.65 [facility] [address] [facility] [id number], [place] [address] 30[address] Jun, [facility] [address] [facility] [id number], [place] [address] May, Lumbago M54.5 [facility] [address] [id number] [id number] May, [facility] [address] [id number] [address] 9578 May, [facility] [address], [place] [address] 50[address] May, [facility] [address] [id number] [address] 9618 May, [facility] [address], [place] [address] 5006 May, [facility] [address], [place] [address] 7718 May, [facility] [address], [place] [address] 3692 May, [facility] [address] [id number] [address]- 5742 May, Lumbago M54.5 [facility] [address], [place] [address] 4451 May, [facility] [address], [place] [address] [address], [address] of the chest R93.8 [facility] [address] [place] [id number] [place] [address] 82389- 0778 Apr, Bipolar 2 disorder F31.81 ; Chronic post-traumatic stress disorder (PTSD) F43.12 and Panic disorder with agoraphobia F40.01 [place] [address] [place] [id number] [place] [address] 15991- 3390 Apr, Abnormal CT of the chest R93.8 [place] [address] [address]- [address] Apr, [address] of the chest R93.8 [place] [address] [place] [id number] [place] [address] 45398- 8296 Apr, [place] [address] [place] [id number] [place] [address] 31356- 5720 Apr, Type 2 diabetes mellitus with hyperglycemia E11.65 [place] [address] [address]80- 0826 Apr, 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 mellitus without complication, without long-term current use of insulin E11.9 ; Watery eyes H04.203 ; Low back pain M54.5 ; Other chronic pain G89.29 ; Chronic tension-type headache, not intractable G44.229 ; Uncontrolled type 2 diabetes mellitus without complication , without long-term current use of insulin E11.65 and Bronchitis J40 [place] [address] [place] [id number] [place] [address] 38171- 2336 Apr, [place] [address] [place] [id number] [place] [address] 49476- 3376 Apr, Lumbago M54.5 [place] [address] [place] [id number] [place] [address] 10837- 1557 March, [facility] [address] [place] [id number] [place] [address] 05719 -4507 March, Cough R05 ; Pneumonia due to infectious organism, unspecified laterality, unspecified part of lung J18.9 and Non-intractable vomiting with nausea, unspecified vomiting type R11.2 [facility] [address], [place] [address]- 1492 March, Bronchitis J40 [facility] [address] [place] [id number] [place] [address] 39813- 9348 March, [facility] [address] [place] [id number] [place] [address] 36216- 0699 March, El's esophageal ulceration K22.10 and Type 2 diabetes mellitus with hyperglycemia E11.65 [facility] [address] [place] [id number] [place] [address] 78024- 0573 March, Panic disorder with agoraphobia F40.01 ; Chronic post- traumatic stress disorder (PTSD) F43.12 and Bipolar 2 disorder F31.81 [place] [address] [place] [id number] [place] [address] 20248- 8735 March, Type 2 diabetes mellitus with hyperglycemia E11.65 [place] [address] [place] [id number] [place] [address] 74854- 6838 March, [facility] [address] [place] [id number] [place] [address] 65464- 1372 March, Lumbago M54.5 [place] [address] [place] [id number] [place] [address] 97638- 7793 March, [facility] [address] [place] [id number] [place] [address] 15172- 8872 March, Irritable bowel syndrome with diarrhea K58.0 ; Primary insomnia F51.01 ; Type 2 diabetes mellitus with hyperglycemia E11.65 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 [place] [address], [place] [address] 3443 March, [facility] [address] [place] [id number] [place] [address] 34256- 8198 Jan, [facility] [address], [place] [address]- 2244 Jan, [facility] [address] [place] [id number] [place] [address] 11822- 0753 Jan, [place] [address] [place] [id number] [place] [address] 70333- 8018 Jan, [place] [address] [place] [id number] [place] [address] 36111- 5027 Jan, Dizziness R42 [place] [address] 79463- 7922 Jan, Bipolar affective disorder, currently depressed, mild F31.31 ; Panic disorder with agoraphobia F40.01 and Chronic post-traumatic stress disorder (PTSD) F43.12 [place] [address] 59[address]- 2317 Jan, Dizziness R42 [place] [address] 06069- 5855 Jan, Chest pain, unspecified type R07.9 ; Exertional dyspnea R06.09 ; Hypertension, unspecified type I10 and Hyperlipidemia, unspecified hyperlipidemia type E78.5 [place] [id number] [place] [address] 43011- 3178 Jan, [place] [address] [place] [id number] [place] [address] 02436- 1005 Jan, Lumbago M54.5 [place] [id number] [place] [address] 08016- 9245 Jan, El's esophageal ulceration K22.10 ; Blister (nonthermal ) of oral cavity, initial encounter S00.522A ; Local infection of the skin and subcutaneous tissue, unspecified L08.9 ; Type 2 diabetes mellitus with hyperglycemia E11.65 ; 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 and Stress incontinence N39.3 [place] [address] [place] [id number] [place] [address] 21448- 3207 Dec, [place] [address] 47228- 0556 Dec, [facility] [address], [place] [address]- 5845 19 Dec, 2017 [facility] [address] [address] 16 Dec, 2017 Dental examination Z01.20 [facility] [id number] [place] [address] 53522- 5080 15 Dec, 2017 Acute pain of right knee M25.561 [facility] [address] [place] [id number] [place] [address] 85934- 6251 14 Dec, 2017 [facility] [address] [place] [id number] [place] [address] 55675- 6448 14 Dec, 2017 [facility] [id number] [place] [address] 96571- 4014 14 Dec, 2017 Lumbago M54.5 ; Acute pain of right knee M25.561 and Seasonal allergic rhinitis due to other allergic trigger J30.89 [facility] [address], [place] [address]- 2568 12 Dec, 2017 Type 2 diabetes mellitus with hyperglycemia E11.65 [facility] [address] [place] [id number] [place] [address] 01908- 8734 08 Dec, 2017 [facility] [address] [place] [id number] [place] [address] 32543- 1703 Dec, [facility] [id number] [place] [address] 46846- 0685 23 Dec, 2017 [facility] [address], [place] [address]- 0743 Dec, [facility] [address] [place] [id number] [place] [address] 12368- 3953 15 Dec, 2017 Chronic post-traumatic stress disorder (PTSD) F43.12 and Panic disorder with agoraphobia F40.01 [facility] [id number] [place] [address] 31664- 2285 13 Dec, 2017 Low back pain M54.5 [facility] [id number] [place] [address] 63901- 6509 12 Dec, 2017 Type 2 diabetes mellitus with hyperglycemia E11.65 ; long-term current use of insulin Z79.4 ; Low back pain M54.5 ; Encounter for therapeutic drug level monitoring Z51.81 and Other chronic pain G89.29 [facility] [address] [place] [id number] [place] [address] 96306- 8865 Dec, Coughing R05 [facility] [address] [place] [id number] [place] [address] 54585- 2288 Dec, [facility] [address] [id number] Dec, Dental examination Z01.20 [place] [address] [place] [id number] [place] [address] 56692- 6618 Nov, Type 2 diabetes mellitus without complications E11.9 and Encounter for therapeutic drug level monitoring Z51.81 [place] [address] [place] [id number] [place] [address] 95244- 0462 Nov, [place] [address] 64643- 1791 Oct, Type 2 diabetes mellitus without complications E11.9 [place] [address] [place] [id number] [place] [address] 97618- 8131 Oct, Type 2 diabetes mellitus with hyperglycemia E11.65 [place] [address] [place] [id number] [place] [address] 61805- 2431 Aug, Type 2 diabetes mellitus without complications E11.9 [place] [address] [place] [id number] [place] [address] 24079- 8357 Aug, Type 2 diabetes mellitus without complications E11.9 ; Hypoglycemia E16.2 ; Lumbago M54.5 ; Stress incontinence of urine N39.3 and History of DC (myocardial infarction) I25.2 [place] [address] [place] [id number] [place] [address] 21484- 0760 Jun, [facility] [address], [place] [address]- 7033 May, [facility] [address] [place] [id number] [place] [address] 75384- 1656 Apr, Panic disorder with agoraphobia F40.01 [facility] [address] [place] [id number] [place] [address] 02264- 2362 Apr, Panic disorder with agoraphobia F40.01 [facility] [address] [place] [id number] [place] [address] 53985- 6817 Apr, [facility] [address] [place] [id number] [place] [address] 73320- 8732 March, Other chronic pain G89.29 [facility] [address] [place] [id number] [place] [address] 39706- 1780 March, [facility] [address] [place] [id number] [place] [address] 01857- 2365 March, [facility] [address] [place] [address] 47318- 4983 March, [facility] [address] [place] [id number] [place] [address] 27088- 0481 March, [facility] [address], [place] [address]- 1344 March, Type 2 diabetes mellitus without complications E11.9 [facility] [address], [place] [address]- 1492 March, Diarrhea, unspecified type R19.7 [facility] [address] [place] [id number] [place] [address] 58311- 2102 March, Bipolar 2 disorder F31.81 ; Chronic post-traumatic stress disorder (PTSD) F43.12 and Type 2 diabetes mellitus with hyperglycemia E11.65 [facility] [address] [place] [address] 28323- 2832 March, [facility] [address] [place] [id number] [place] [address] 85690- 0046 March, [facility] [address] [place] [id number] [place] [address] 66797- 0926 March, Hypertension, benign I10 ; Type 2 diabetes mellitus with hyperglycemia E11.65 ; Hepatitis C B19.20 ; Gastritis and duodenitis K29.90 and Dysuria R30.0 [place] [address] [place] [id number] [place] [address] 48864- 2913 March, Hypertension, benign I10 ; Type 2 diabetes mellitus with hyperglycemia E11.65 ; Hepatitis C B19.20 ; Gastritis and duodenitis K29.90 and Dysuria R30.0 [place] [address] [place] [id number] [place] [address] 45294- 2196 March, Panic disorder with agoraphobia F40.01 ; Chronic post- traumatic stress disorder (PTSD) F43.12 ; Epilepsy G40.909 and Bipolar I disorder with mood-congruent psychotic features F31.9 [place] [address] [place] [id number] [place] [address] 29793- 2144 March, [place] [address] [place] [id number] [place] [address] 43942- 5889 March, Type 2 diabetes mellitus with hyperglycemia E11.65 [place] [address] [place] [id number] [place] [address] 97865- 3075 Jan, Bipolar I disorder with duy F31.10 [facility] [address] [place] [id number] [place] [address] 75049- 6844 Jan, Bipolar 2 disorder F31.81 ; Chronic post-traumatic stress disorder (PTSD) F43.12 and Type 2 diabetes mellitus with hyperglycemia E11.65 [facility] [address] [place] [id number] [place] [address] 96366- 7595 Jan, [place] [address] [place] [id number] [place] [address] 03979- 3005 Jan, [place] [address] [place] [id number] [place] [address] 22029- 2016 14 Jan, 2017 Panic disorder with agoraphobia F40.01 [facility] [address] [place] [id number] [place] [address] 08238- 7236 13 Jan, 2017 Panic disorder with agoraphobia F40.01 ; Bipolar I disorder with mood-congruent psychotic features F31.9 ; Chronic post-traumatic stress disorder (PTSD) F43.12 and Epilepsy G40.909 [facility] [address] [place] [id number] [place] [address] 91822- 3634 Jan, [facility] [address] [place] [id number] [place] [address] 92002- 7060 Jan, [place] [address] [place] [id number] [place] [address] 68664- 2281 10 Jan, 2017 Type 2 diabetes mellitus without complications E11.9 and Hypoglycemia E16.2 [place] [address] [place] [id number] [place] [address] 39492- 4881 Jan, Type 2 diabetes mellitus without complications E11.9 ; Primary insomnia F51.01 and Hypertension, benign I10 [place] [address] [place] [id number] [place] [address] 48978- 4044 Jan, [facility] [address] [id number] [place] [address] [id number] Jan, [facility] [address] [id number] [place] [address] 06883- 5703 Dec, Type 2 diabetes mellitus with hyperglycemia E11.65 [facility] [id number] [place] [address] 66991- 1279 Dec, [facility] [id number] [place] [address] 03253- 9955 Dec, Bipolar 2 disorder F31.81 ; Panic disorder with agoraphobia F40.01 ; Chronic post-traumatic stress disorder (PTSD) F43.12 and Epilepsy G40.909 [facility] [address] [place] [address]- 1300 Dec, [facility] [id number] [place] [address] 45200- 2336 Dec, [facility] [id number] [place] [address] 10013- 4288 Dec, Bipolar 2 disorder F31.81 ; Panic disorder with agoraphobia F40.01 ; Chronic post-traumatic stress disorder (PTSD) F43.12 and Epilepsy G40.909 [facility] [id number] [place] [address] 84124- 7788 Dec, [facility] [address] 82190- 2236 Dec, [facility] [address] 25228- 1339 Dec, [facility] [address] 26427- 0373 Dec, Type 2 diabetes mellitus with hyperglycemia E11.65 ; long-term current use of insulin Z79.4 and Lumbago M54.5 [place] [id number] [place] [address] 57221- 2556 Dec, [facility] [id number] [place] [address] 12358- 3146 Dec, [facility] [id number] [place] [address] 13921- 2733 Dec, [facility] [id number] [place] [address] 11440 -1876 Dec, Pain of left leg M79.605 and Pain in right leg M79.604 [facility] [id number] [place] [address] 68446- 6018 Dec, [facility] [id number] [place] [address] [phone] Dec, Type 2 diabetes mellitus with hyperglycemia E11.65 [place] [id number] [place] [phone] Dec, [place] [id number] [place] [address] [phone] Dec, Type 2 diabetes mellitus with hyperglycemia E11.65 ; long-term current use of insulin Z79.4 ; Vagina, candidiasis B37.3 and Other chronic pain G89.29 [place] [id number] [place] [address] [phone] Nov, Panic disorder with agoraphobia F40.01 [place] [id number] [place] [address] [phone] Nov, [facility] [id number] [place] [address] 07493- 6884 Nov, [facility] [facility] [id number] [place] [address] 48624- 4987 Nov, Hypoglycemia E16.2 [facility] [id number] [place] [address] 34266- 3502 Nov, [facility] [facility] [id number] [place] [address] 88915- 4140 Nov, [facility] [id number] [place] [address] 55056- 3052 Nov, [facility] [id number] [place] [address] 36209- 3470 Nov, Type 2 diabetes mellitus with hyperglycemia E11.65 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 [facility] [id number] [place] [address] 37308- 2061 Nov, Panic disorder with agoraphobia F40.01 ; Bipolar 2 disorder F31.81 ; Chronic post-traumatic stress disorder (PTSD) F43.12 and Epilepsy G40.909 [facility] [id number] [place] [address] 42871- 6180 Nov, Panic disorder with agoraphobia F40.01 [facility] [id number] [address] 1357 Oct, [facility] [id number] [place] [address] 24041- 4760 Oct, [facility] [id number] [place] [address] 80416- 0472 Oct, Bipolar 2 disorder F31.81 ; Panic disorder with agoraphobia F40.01 and Mood disorder F39 [facility] [id number] [place] [address] 28474- 7642 Oct, Diabetes E11.9 ; Type 2 diabetes mellitus with hyperglycemia E11.65 and long-term current use of insulin Z79.4 [facility] [id number] [place] [address] 30480- 1181 Oct, [facility] [id number] [place] [address] 83810- 5227 Sep, [facility] [id number] [place] [address] 82469- 3258 Sep, Bipolar 2 disorder F31.81 and Mood disorder F39 [facility] [id number] [place] [address] 02027- 2777 Sep, [facility] [id number] [place] [address] 00962- 9708 Sep, Uncontrolled type 2 diabetes mellitus without complication, without long-term current use of insulin E11.65 [facility] [address] [address] 8764 Sep, [facility] [id number] [place] [address] 35154- 7365 Sep, [facility] [id number] [place] [address] 39670- 4614 Sep, [facility] [id number] [place] [address] 53852- 7882 Sep, [facility] [id number] [place] [address] 08712- 9641 Sep, Bipolar 2 disorder F31.81 ; Chronic post-traumatic stress disorder (PTSD) F43.12 ; Panic disorder with agoraphobia F40.01 and Epilepsy G40.909 [facility] [id number] [place] [address] 40501- 4685 Sep, Bipolar 2 disorder F31.81 ; PTSD (post-traumatic stress disorder) F43.10 and Panic disorder with agoraphobia F40.01 [facility] [id number] [place] [address] 65271- 6340 Sep, [facility] [id number] [place] [address] 33404- 6937 28 Aug, 2016 History of seizures Z87.898 ; Panic disorder with agoraphobia F40.01 and Bipolar 2 disorder F31.81 [facility] [id number] [place] [address] 72814- 4475 Aug, [facility] [address] 01785- 0155 Aug, [facility] [id number] [place] [address] 27384- 9678 Aug, [facility] [id number] [place] [address] 06663- 3790 Aug, [facility] [id number] [place] [address] 51808- 0179 Aug, [facility] [address] 21381- 7588 Aug, [facility] [address] 92455- 6557 Aug, Hypoglycemia E16.2 and Bilateral impacted cerumen H61.23 [facility] [address] 50829- 2232 Aug, [facility] [address] [address] 5273 Jul, [facility] [id number] [place] [address] 51560- 6098 Jul, [facility] [id number] [place] [address] 63029- 0227 Jul, Bipolar 2 disorder F31.81 ; Panic disorder with agoraphobia F40.01 ; PTSD (post-traumatic stress disorder) F43.10 and Epilepsy G40.909 [facility] [id number] [place] [address] 04369- 2696 Jul, [facility] [id number] [place] [address] 03654- 7813 Jul, Type 2 diabetes mellitus without complications E11.9 and Coughing R05 [facility] [id number] [place] [address] 12673- 3618 Jul, [facility] [id number] [place] [address] 95853- 2159 Jun, [facility] [id number] [place] [address] 84726- 9146 Jun, Bipolar 2 disorder F31.81 ; PTSD (post-traumatic stress disorder) F43.10 and Panic disorder with agoraphobia F40.01 [facility] [id number] [place] [address] 94369- 1079 Jun, [facility] [id number] [place] [address] 63378- 4918 Jun, [facility] [id number] [place] [address] 93607- 7805 Jun, [facility] [id number] [place] [address] 17811- 8872 Jun, Type 2 diabetes mellitus without complications E11.9 and COPD (chronic obstructive pulmonary disease) J44.9 [place] [address] [place] [id number] [id number] May, Dental examination Z01.20 and Dental caries K02.9 [place] [id number] [place] [address] 38688- 6301 May, Bipolar 2 disorder F31.81 ; PTSD (post-traumatic stress disorder) F43.10 and Panic disorder with agoraphobia F40.01 [place] [id number] [place] [address] 06409- 3786 May, Lumbago with sciatica, right side M54.41 ; Other chronic pain G89.29 and Uncontrolled type 2 diabetes mellitus without complication, without long-term current use of insulin E11.65 [place] [id number] [place] [address] 51611- 8190 May, Chronic bronchitis, unspecified chronic bronchitis type J42 [place] [id number] [place] [address] 84900- 6646 May, [facility] [facility] [id number] [place] [address] 25118- 8203 May, [place] [id number] [place] [address] 02298- 7267 May, Chest pain, unspecified type R07.9 ; Tobacco use Z72.0 ; Type 2 diabetes mellitus without complications E11.9 ; Essential hypertension I10 ; Hyperlipidemia, unspecified hyperlipidemia type E78.5 ; Obesity (BMI 30- 39.9) E66.9 ; History of hypothyroidism Z86.39 ; Chronic obstructive pulmonary disease, unspecified COPD type J44.9 ; Anxiety F41.9 ; Bilateral claudication of lower limb I73.9 and Bipolar 2 disorder F31.81 [place] [id number] [place] [address] 93211- 5373 May, Bipolar 2 disorder F31.81 ; Panic disorder with agoraphobia F40.01 and Tobacco abuse Z72.[address] 06154- 5816 Apr, [facility] [id number] [place] [address] 04367- 7834 Apr, [facility] [id number] [place] [address] 06103- 4658 Apr, [facility] [id number] [place] [address] 25069- 2924 Apr, Bipolar 2 disorder F31.81 ; Panic disorder with agoraphobia F40.01 and PTSD (post-traumatic stress disorder) F43.10 [facility] [id number] [place] [address] 73832- 4585 Apr, Chronic bronchitis, unspecified chronic bronchitis type J42 ; Cervical neuritis M54.12 and Thoracic neuritis M54.14 [facility] [id number] [place] [address] 42293- 5171 Apr, [facility] [address] 73845- 8704 Apr, Cervicalgia M54.2 [facility] [id number] [place] [address] 49197- 4061 Apr, Bipolar 2 disorder F31.81 ; Panic disorder with agoraphobia F40.01 and PTSD (post-traumatic stress disorder) F43.10 [facility] [id number] [place] [address] 21230 -0881 Apr, [facility] [id number] [place] [address] 73115 -9250 09 Apr, 2016 Cough R05 and Tobacco dependence F17.200 [facility] [address] 32166- 8672 Apr, [facility] [id number] [place] [address] 75333- 9850 Apr, [facility] [id number] [place] [address] 42793- 6793 March, Bipolar 2 disorder F31.81 ; Panic disorder with agoraphobia F40.01 and Generalized anxiety disorder F41.1 [facility] [id number] [place] [address] 56505- 8622 March, Closed displaced fracture of fifth metatarsal bone of right foot with routine healing, subsequent encounter S92.351D [facility] [facility] [id number] [place] [address] 71421- 7734 March, Bronchitis J40 [place] [address] 76093- 5185 March, [place] [address] 00812- 2137 March, [place] [id number] [place] [address] 38153- 3048 March, Foot pain, right M79.671 ; Cervicalgia M54.2 and 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 mellitus without complication, 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 [facility] [facility] [id number] [place] [address] 49898- 0121 March, Fracture of fifth metatarsal bone of right foot S92.351A [facility] [facility] [id number] [place] [address] 45060- 1958 March, [facility] [id number] [place] [address] 57644- 2508 Jan, Fracture of fifth metatarsal bone of right foot S92.351A [facility] [facility] [id number] [place] [address] 42922- 7905 Jan, Bipolar 2 disorder F31.81 ; PTSD (post-traumatic stress disorder) F43.10 ; Panic disorder with agoraphobia F40.01 and Epilepsy G40.909 [facility] [facility] [id number] [place] [address] 63130- 5986 Jan, History of DC (myocardial infarction) I25.2 and History of high cholesterol Z86.39 [facility] [facility] [id number] [place] [address] 31473- 5599 18 Feb, 2016 Bipolar 2 disorder F31.81 ; Panic disorder with agoraphobia F40.01 ; Tobacco abuse Z72.0 and PTSD (post-traumatic stress disorder) F43.10 [place] [id number] [place] [address] 17094- 2112 12 Feb, 2016 Fracture of fifth metatarsal bone of right foot S92.351A [place] [id number] [place] [address] 56876- 0560 Jan, [facility] [id number] [place] [address] 67718- 8418 07 Feb, 2016 History of high cholesterol Z86.39 [place] [id number] [place] [address] 95554- 6465 04 Feb, 2016 History of DC (myocardial infarction) I25.2 [place] [id number] [place] [address] 80139- 0252 Jan, [place] [id number] [place] [address] 92846- 1388 31 Jan, 2016 Back pain M54.9 ; Diabetes E11.9 ; Right knee pain M25.561 and Chest pain R07.9 [place] [id number] [place] [address] 42653- 3619 Dec, [place] [id number] [place] [address] 57897- 6089 24 Jan, 2016 [place] [id number] [place] [address] 75081- 0098 Dec, Cervicalgia M54.2 [facility] [id number] [place] [address] 66522- 1808 17 Jan, 2016 Bipolar 2 disorder F31.81 ; PTSD (post-traumatic stress disorder) F43.10 ; Panic disorder with agoraphobia F40.01 and Epilepsy G40.909 [place] [id number] [place] [address] 33961- 2972 08 Jan, 2016 Bipolar 2 disorder F31.81 ; PTSD (post-traumatic stress disorder) F43.10 and Panic disorder with agoraphobia F40.01 [place] [id number] [place] [address] 30299- 9168 Dec, Diabetes E11.9 [place] [address] 56759- 0852 Dec, [place] [id number] [place] [address] 95478- 6847 Dec, Other chronic pain G89.29 ; Hepatitis C B19.20 and History of seizures Z87.898 [place] [id number] [place] [address] 15647- 1423 24 Dec, 2015 [place] [address] 31181- 4353 Dec, Bipolar 2 disorder F31.81 and Other chronic pain G89.29 [place] [id number] [place] [address] 85166- 8825 Dec, Cervicalgia M54.2 and Diabetes E11.9 [place] [id number] [place] [address] 83615- 1287 Dec, [place] [id number] [place] [address] 42290- 7285 Dec, [place] [id number] [place] [address] 28534- 254 Dec, [place] [id number] [place] [address] 25187- 1682 Dec, [place] [id number] [place] [address] 22344- 5227 Dec, Type 2 diabetes mellitus without complications E11.9 [place] [id number] [place] [address] 90592- 6977 Dec, [place] [id number] [place] [address] 53197- 2109 Dec, History of seizures Z87.898 and Hepatitis C B19.20 [place] [id number] [place] [address] 76001- 9611 08 Dec, 2015 Hepatitis C B19.20 [place] [address] 37636- 2008 Dec, [place] [id number] [place] [address] 54514- 5150 Dec, Cervicalgia M54.2 ; COPD (chronic obstructive pulmonary disease) J44.9 and Hepatitis C B19.20 [place] [id number] [place] [address] 73815- 4127 Dec, Bipolar 2 disorder F31.81 ; History of hypertension Z86.79 ; History of anxiety Z86.59 ; Panic disorder with agoraphobia F40.01 and Epilepsy G40.909 [place] [id number] [place] [address] 03126- 1801 Nov, [place] [id number] [place] [address] 51156- 3582 Nov, [place] [id number] [place] [address] 22181- 1127 Nov, History of seizures Z87.898 ; OAB (overactive bladder) N32.81 ; Lumbago M54.5 ; Other chronic pain G89.29 ; Cervicalgia M54.2 ; Tobacco abuse Z72.0 ; Tobacco abuse counseling Z71.6 and Impaired fasting glucose R73.01 [place] [id number] [place] [address] 94036- 9345 Nov, Bipolar 2 disorder F31.81 ; PTSD (post-traumatic stress disorder) F43.10 ; History of anxiety Z86.59 ; History of COPD Z87.09 ; Panic disorder with agoraphobia F40.01 and Moderate depressed bipolar I disorder F31.32 [facility] [address] [place] [address] 41958- 4995 12 Nov, 2015 PTSD (post-traumatic stress disorder) F43.10 [facility] [address] [id number] 11 Nov, 2015 Dental examination Z01.20 and Dental caries K02.[address] 14087- 3640 08 Nov, 2015 History of hypertension Z86.79 ; History of hypothyroidism Z86.39 ; History of high cholesterol Z86.39 ; History of COPD Z87.09 and Overactive bladder N32.81 [place] [id number] [place] [address] 88249- 2605 Nov, Bipolar 2 disorder F31.81 and PTSD (post-traumatic stress disorder) F43.10 [place] [id number] [place] [address] 73077- 3091 Nov, PTSD (post-traumatic stress disorder) F43.10 ; Panic disorder with agoraphobia F40.01 ; Epilepsy G40.909 and Moderate depressed bipolar I disorder F31.32 [place] [id number] [place] [address] 14620- 5150 Nov, [place] [id number] [place] [address] 57978- 3099 Nov, [place] [id number] [place] [address] 29479- 1343 Oct, [place] [id number] [place] [address] 61509- 2949 Oct, Generalized anxiety disorder F41.1 ; Major depression, recurrent F33.9 and PTSD (post-traumatic stress disorder) F43.10 [place] [id number] [place] [address] 76413- 9937 Oct, Elevated fasting glucose R73.01 [place] [address] [address]- 5822 Oct, Elevated fasting glucose R73.01 [place] [id number] [place] [address] 63510- 4990 Oct, History of COPD Z87.09 [place] [address] [place] [address] 18133- 7393 15 Oct, 2015 General medical exam Z00.00 ; History of hypertension Z86.79 ; History of hypothyroidism Z86.39 ; History of hepatitis Z86.19 ; History of high cholesterol Z86.39 and History of seizures Z87.898 [place] [id number] [place] [address] 38931- 0018 Oct, General medical exam Z00.00 ; History of hypertension Z86.79 ; History of hypothyroidism Z86.39 ; Bipolar 2 disorder F31.81 ; PTSD ( post-traumatic stress disorder) F43.10 ; History of hepatitis Z86.19 ; History of high cholesterol Z86.39 ; History of anxiety Z86.59 ; History of seizures Z87.898 ; History of DC (myocardial infarction) I25.2 and History of COPD Z87.09 [place] [id number] [place] [address] 84663- 6847 Oct, Generalized anxiety disorder F41.1 ; Depression F32.9 and PTSD (post-traumatic stress disorder) F43.10 [place] [id number] [place] [address] 76551- 7609 Jan, [place] [id number] [place] [address] 74281- 9726 Jan, [place] [id number] [place] [address] 06893- 2208 Jun, [facility] [address] [id number] Jun, [place] [address] [address]- 5230 May, [place] [id number] [address]- 2546 May, [facility] [address] [id number] May, [facility] [address] [facility] [id number] [address]- 2546 May, [facility] [address] [id number] May, [facility] [address] [facility] [id number] [address]- 2546 May, IMMUNIZATIONS No Known Immunizations SOCIAL HISTORY Never Assessed REASON FOR VISIT BS issues PLAN OF CARE VITAL SIGNS MEDICATIONS Medication Instructions Dosage Frequency Start Date End Date Duration Status NovoLog 100 UNIT/ML DX E11.9 3 times a day before meals Inject 30 units Dec, Active Levemir 100 UNIT/ML Subcutaneous 2 times a day Inject 50 units 12h Dec, Active RESULTS No Results PROCEDURES No Known procedures INSTRUCTIONS MEDICATIONS ADMINISTERED No Known Medications MEDICAL (GENERAL) HISTORY Type Description Date Medical History Hypothyroidism Medical History High cholesterol Medical History Hypertension Medical History Brain seizure Medical History Asthma Medical History COPD Medical History Hep C -2004 Medical History DC x 2 last in [...]
--- OUTSIDE RECORDS SUMMARY | 2019-01-26 07:54 | XMS REPORT ---
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 Name Role Phone MARGI GERARDO Unavailable PROBLEMS Type Condition ICD9-CM Code [id number] Code Onset Dates Condition Status SNOMED Code Problem OAB (overactive bladder) N32.81 Active 226325125 Problem Epilepsy G40.909 Active 41610367 Problem Cervicalgia M54.2 Active 51053727 Problem Other chronic pain G89.29 Active 92279071 Problem Tobacco abuse Z72.0 Active 66411622 Problem Lumbago M54.5 Active 983716109 Problem Hepatitis C B19.20 Active 34057505 Problem COPD (chronic obstructive pulmonary disease) J44.9 Active 87604784 Problem Diabetes E11.9 Active 48241847 Problem Bipolar I disorder with duy F31.10 Active 70833451 Problem Type 2 diabetes mellitus without complications E11.9 Active 652955877 Problem Stress incontinence of urine N39.3 Active 53930659 Problem Bilateral claudication of lower limb I73.9 Active 168242638 Problem Seasonal allergic rhinitis due to other allergic trigger J30.89 Active 145593050 Problem Hyperlipidemia, unspecified hyperlipidemia type E78.5 Active 76887602 Problem Hypertension, unspecified type I10 Active 89067524 Problem Chronic tension-type headache, not intractable G44.229 Active 019982436 Problem 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 mellitus without complication, without long -term current use of insulin E11.9 Active 733542968 Problem Type 2 diabetes mellitus with hyperglycemia E11.65 Active 052263684 Problem Chronic post-traumatic stress disorder (PTSD) F43.12 Active 377951891 Problem History of hypothyroidism Z86.39 Active 016790491 Problem Hypoglycemia E16.2 Active 255265556 Problem El's esophageal ulceration K22.10 Active 649289921 Problem Bipolar affective disorder, currently depressed, mild F31.31 Active 225847893 Problem Irritable bowel syndrome with diarrhea K58.0 Active 427204911 Problem Stress incontinence N39.3 Active 97920596 Problem History of hypertension Z86.79 Active 059856847 Problem Uncontrolled type 2 diabetes mellitus without complication, without long-term current use of insulin E11.65 Active 089622557 Problem Panic disorder with agoraphobia F40.01 Active 54111030 Problem Type 2 diabetes mellitus with hyperglycemia E11.65 Active 363312741 Problem History of seizures Z87.898 Active 900738908 Problem skilled nursing current use of insulin Z79.4 Active 704993776 Problem History of CA (myocardial infarction) I25.2 Active 696334008 Problem Mood disorder F39 Active 82472429 Problem Bipolar 2 disorder F31.81 Active 96534867 Problem Gastritis and duodenitis K29.90 Active 626742074 Problem History of high cholesterol Z86.39 Active 007752922 Problem Bipolar I disorder with mood-congruent psychotic features F31.9 Active 461969239 Problem Hypertension, benign I10 Active 98666486 Problem Primary insomnia F51.01 Active 9473571 ALLERGIES No Information ENCOUNTERS Encounter Location Date Diagnosis [place] [id number] [address] 11 Jul, 2018 [facility] [address] [address] 17 Jun, 2018 [facility] [address] [address]- [address] 16 Jun, 2018 [facility] [address] [address] 14 Jun, 2018 Bipolar affective disorder, currently depressed, mild F31.31 ; Chronic post-traumatic stress disorder (PTSD) F43.12 and Panic disorder with agoraphobia F40.01 [facility] [address] [address]- [address] 14 Jun, 2018 [facility] [address] [address]- 0202 13 Jun, 2018 [facility] [address] [address]- 0[address] 09 Jun, 2018 Type 2 diabetes mellitus with hyperglycemia E11.65 [facility] [address] [facility] [id number] [place] [address] Jun, Uncontrolled type 2 diabetes mellitus with hyperglycemia E11.65 [facility] [address] [facility] [id number] [place] [address] 2546 Jun, [facility] [address] [facility] [id number] [place] [address] 3350 May, Lumbago M54.5 [facility] [address] [facility] [id number] [place] [id number] May, [facility] [address] [facility] [id number] [place] [address] 7713 May, [facility] [address] [facility] [id number], [place] [address] May, [facility] [address], [place] [address] May, [facility] [address] [facility] [id number], [place] [address] May, [facility] [address] [place] [id number] [place] [address] 3[address] May, [facility] [address] [id number] [address] 3[address] May, [facility] [address] [id number] [address] 8393 May, Lumbago M54.5 [facility] [address] [facility] [id number], [place] [address] May, [facility] [address] [id number], [place] [address] Apr, Abnormal CT of the chest R93.8 [facility] [address] [id number] [address] 6757 Apr, Bipolar 2 disorder F31.81 ; Chronic post-traumatic stress disorder (PTSD) F43.12 and Panic disorder with agoraphobia F40.01 [place] [address] [place] [id number] [place] [address] 14139- 2258 20 Apr, [address] of the chest R93.8 [place] [address] [place] [id number] [place] [address] 45695- 9592 20 Apr, [address] of the chest R93.8 [place] [address] 11833- 6570 14 Apr, 2018 [place] [address] [place] [id number] [place] [address] 13583- 3934 Apr, Type 2 diabetes mellitus with hyperglycemia E11.65 [place] [address] [place] [id number] [place] [address] 73320- 8039 Apr, 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 mellitus without complication, without long-term current use of insulin E11.9 ; Watery eyes H04.203 ; Low back pain M54.5 ; Other chronic pain G89.29 ; Chronic tension-type headache, not intractable G44.229 ; Uncontrolled type 2 diabetes mellitus without complication , without long-term current use of insulin E11.65 and Bronchitis J40 [place] [address] [place] [id number] [place] [address] 71707- 6412 Apr, [place] [address] [place] [id number] [place] [address] 06853- 6016 Apr, Lumbago M54.5 [place] [address] [place] [id number] [place] [address] 51031- 1060 March, [facility] [address] [place] [id number] [place] [address] 21439 -0597 March, Cough R05 ; Pneumonia due to infectious organism, unspecified laterality, unspecified part of lung J18.9 and Non-intractable vomiting with nausea, unspecified vomiting type R11.2 [place] [address] [place] [id number] [place] [address] 65852- 6163 March, Bronchitis J40 [place] [address] [id number] [address] March, [facility] [address] [place] [id number] [place] [address] 15771- 8827 March, El's esophageal ulceration K22.10 and Type 2 diabetes mellitus with hyperglycemia E11.65 [facility] [address] [place] [id number] [place] [address] 06100- 6546 March, Panic disorder with agoraphobia F40.01 ; Chronic post- traumatic stress disorder (PTSD) F43.12 and Bipolar 2 disorder F31.81 [facility] [address] [place] [id number] [place] [address] 96861- 7964 March, Type 2 diabetes mellitus with hyperglycemia E11.65 [facility] [address] [place] [id number] [place] [address] 70239- 7426 March, [facility] [address] [place] [id number] [place] [address] 71372- 5328 March, Lumbago M54.5 [facility] [address] [place] [id number] [place] [address] 98675- 8340 March, [facility] [address] [place] [id number] [place] [address] 94696- 0723 March, Irritable bowel syndrome with diarrhea K58.0 ; Primary insomnia F51.01 ; Type 2 diabetes mellitus with hyperglycemia E11.65 and skilled nursing current use of insulin Z79.4 [facility] [id number] [place] [address] 89370- 5652 March, [facility] [address], [place] [address]- 1572 Jan, [facility] [address] [place] [id number] [place] [address] 74583- 2319 Jan, [facility] [address], [place] [address]- 2066 Jan, [facility] [address] [place] [id number] [place] [address] 69701- 0607 Jan, [place] [address] [place] [id number] [place] [address] 55647- 0917 Jan, Dizziness R42 [place] [address] [place] [id number] [place] [address] 638051- 3201 Jan, Bipolar affective disorder, currently depressed, mild F31.31 ; Panic disorder with agoraphobia F40.01 and Chronic post-traumatic stress disorder (PTSD) F43.12 [place] [address] [place] [id number] [place] [address] 18379- 5411 Jan, Dizziness R42 [place] [address] [address]- 1378 Jan, Chest pain, unspecified type R07.9 ; Exertional dyspnea R06.09 ; Hypertension, unspecified type I10 and Hyperlipidemia, unspecified hyperlipidemia type E78.5 [place] [address] [place] [id number] [place] [address] 36217- 0034 Jan, [place] [address] [place] [id number] [place] [address] 06752- 1400 Jan, Lumbago M54.5 [place] [address] [place] [id number] [place] [address] 84476- 6172 Jan, El's esophageal ulceration K22.10 ; Blister (nonthermal ) of oral cavity, initial encounter S00.522A ; Local infection of the skin and subcutaneous tissue, unspecified L08.9 ; Type 2 diabetes mellitus with hyperglycemia E11.65 ; 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 and Stress incontinence N39.3 [place] [address] [place] [id number] [place] [address] 41374- 3971 Dec, [place] [address] 16475- 9996 Dec, [place] [address] [place] [id number] [place] [address] 70040- 7922 Dec, [place] [address] [id number] 16 Dec, 2017 Dental examination Z01.20 [facility] [address] [place] [id number] [place] [address] 54766- 4710 15 Dec, 2017 Acute pain of right knee M25.561 [facility] [address] [place] [id number] [place] [address] 77518- 0808 14 Dec, 2017 [facility] [address] [place] [id number] [place] [address] 05429- 8686 14 Dec, 2017 [facility] [address] [place] [id number] [place] [address] 68776- 3581 14 Dec, 2017 Lumbago M54.5 ; Acute pain of right knee M25.561 and Seasonal allergic rhinitis due to other allergic trigger J30.89 [facility] [address] [place] [id number] [place] [address] 82182- 3286 Dec, Type 2 diabetes mellitus with hyperglycemia E11.65 [place] [address] [place] [id number] [place] [address] 85554- 0165 08 Dec, 2017 [facility] [address] [place] [id number] [place] [address] 04570- 8231 Dec, [facility] [address] [place] [id number] [place] [address] 17905- 7736 23 Dec, 2017 [facility] [address] [place] [id number] [place] [address] 25558- 4548 Dec, [facility] [address] [place] [address] 36185- 4217 15 Dec, 2017 Chronic post-traumatic stress disorder (PTSD) F43.12 and Panic disorder with agoraphobia F40.01 [facility] [id number] [place] [address] 23660- 6332 13 Dec, 2017 Low back pain M54.5 [facility] [id number] [place] [address] 36116- 1571 12 Dec, 2017 Type 2 diabetes mellitus with hyperglycemia E11.65 ; 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 ; Low back pain M54.5 ; Encounter for therapeutic drug level monitoring Z51.81 and Other chronic pain G89.29 [facility] [address] [place] [id number] [place] [address] 76494- 1796 09 Dec, 2017 Coughing R05 [facility] [address] [place] [id number] [place] [address] 98186- 0212 09 Dec, 2017 [facility] [address] [place] [id number] [place] [address] [id number] 07 Dec, 2017 Dental examination Z01.20 [place] [address] 08728- 4153 Nov, Type 2 diabetes mellitus without complications E11.9 and Encounter for therapeutic drug level monitoring Z51.81 [place] [id number] [place] [address] 84689- 4011 Nov, [place] [address] [place] [id number] [place] [address] 11235- 4483 Oct, Type 2 diabetes mellitus without complications E11.9 [place] [id number] [place] [address] 58887- 7250 Oct, Type 2 diabetes mellitus with hyperglycemia E11.65 [place] [address] [place] [id number] [place] [address] 72232- 6407 Aug, Type 2 diabetes mellitus without complications E11.9 [place] [address] [place] [id number] [place] [address] 10950- 8763 Aug, Type 2 diabetes mellitus without complications E11.9 ; Hypoglycemia E16.2 ; Lumbago M54.5 ; Stress incontinence of urine N39.3 and History of CA (myocardial infarction) I25.2 [facility] [address] [place] [id number] [place] [address] 18805- 5603 Jun, [place] [address] [place] [id number] [place] [address] 60762- 9433 May, [facility] [address], [place] [address]- 4674 Apr, Panic disorder with agoraphobia F40.01 [facility] [address] [id number] [address]- 9444 Apr, Panic disorder with agoraphobia F40.01 [facility] [address], [place] [address]- 4220 Apr, [facility] [address] [place] [id number] [place] [address] 78370- 1567 March, Other chronic pain G89.29 [facility] [address] [place] [id number] [place] [address] 79190- 3989 March, [facility] [address] [place] [id number] [place] [address] 00766- 0956 March, [facility] [address] [place] [id number] [place] [address] 47854- 5077 March, [facility] [address], [place] [address]- 1342 March, [facility] [address] [place] [id number] [place] [address] 55341- 6131 March, Type 2 diabetes mellitus without complications E11.9 [facility] [address], [place] [address]- 2830 March, Diarrhea, unspecified type R19.7 [facility] [address], [place] [address]- 4172 March, Bipolar 2 disorder F31.81 ; Chronic post-traumatic stress disorder (PTSD) F43.12 and Type 2 diabetes mellitus with hyperglycemia E11.65 [facility] [address], [place] [address]- 7468 March, [facility] [address], [place] [address]- 2014 March, [facility] [address], [place] [address]- 5957 March, Hypertension, benign I10 ; Type 2 diabetes mellitus with hyperglycemia E11.65 ; Hepatitis C B19.20 ; Gastritis and duodenitis K29.90 and Dysuria R30.0 [place] [address] [place] [id number] [place] [address] 07196- 6081 March, Hypertension, benign I10 ; Type 2 diabetes mellitus with hyperglycemia E11.65 ; Hepatitis C B19.20 ; Gastritis and duodenitis K29.90 and Dysuria R30.0 [place] [address] [place] [id number] [place] [address] 97524- 4271 March, Panic disorder with agoraphobia F40.01 ; Chronic post- traumatic stress disorder (PTSD) F43.12 ; Epilepsy G40.909 and Bipolar I disorder with mood-congruent psychotic features F31.9 [place] [address] [place] [id number] [place] [address] 26511- 9733 March, [place] [address] [place] [id number] [place] [address] 38730- 9650 March, Type 2 diabetes mellitus with hyperglycemia E11.65 [place] [address] [place] [id number] [place] [address] 39854- 3810 18 Jan, 2017 Bipolar I disorder with duy F31.10 [place] [address] [place] [id number] [place] [address] 18118- 4444 Jan, Bipolar 2 disorder F31.81 ; Chronic post-traumatic stress disorder (PTSD) F43.12 and Type 2 diabetes mellitus with hyperglycemia E11.65 [place] [address] [place] [id number] [place] [address] 52516- 5894 Jan, [place] [address] [place] [id number] [place] [address] 93640- 0301 Jan, [place] [address] [place] [id number] [place] [address] 49549- 1331 Jan, Panic disorder with agoraphobia F40.01 [place] [address], [place] [address]- 3933 13 Jan, 2017 Panic disorder with agoraphobia F40.01 ; Bipolar I disorder with mood-congruent psychotic features F31.9 ; Chronic post-traumatic stress disorder (PTSD) F43.12 and Epilepsy G40.909 [facility] [address] [place] [id number] [place] [address] 95545- 7932 12 Jan, 2017 [facility] [address] [place] [id number] [place] [address] 07013- 2670 Jan, [facility] [address] [place] [id number] [place] [address] 40069- 3025 10 Jan, 2017 Type 2 diabetes mellitus without complications E11.9 and Hypoglycemia E16.2 [place] [address] [place] [id number] [place] [address] 77489- 0107 07 Jan, 2017 Type 2 diabetes mellitus without complications E11.9 ; Primary insomnia F51.01 and Hypertension, benign I10 [facility] [address] [place] [id number] [place] [address] 13929- 2512 06 Jan, 2017 [facility] [address] [id number] 05 Jan, 2017 [facility] [address] [place] [id number] [place] [address] 96556- 9604 31 Dec, 2016 Type 2 diabetes mellitus with hyperglycemia E11.65 [facility] [address] [place] [id number] [place] [address] 72843- 5995 Dec, [facility] [address] [place] [id number] [place] [address] 91460- 3514 Dec, Bipolar 2 disorder F31.81 ; Panic disorder with agoraphobia F40.01 ; Chronic post-traumatic stress disorder (PTSD) F43.12 and Epilepsy G40.909 [facility] [address] [place] [id number] [place] [address] 15612- 5422 Dec, [facility] [address] [place] [id number] [place] [address] 67893- 6420 Dec, [facility] [address] [place] [id number] [place] [address] 83609- 8470 Dec, Bipolar 2 disorder F31.81 ; Panic disorder with agoraphobia F40.01 ; Chronic post-traumatic stress disorder (PTSD) F43.12 and Epilepsy G40.909 [facility] [address] [place] [id number] [place] [address] 60783- 9768 Dec, [facility] [address] [place] [id number] [place] [address] 07534- 1838 Dec, [facility] [address] [place] [id number] [place] [address] 06901- 6131 Dec, [facility] [address] [place] [id number] [place] [address] 37987- 3802 Dec, Type 2 diabetes mellitus with hyperglycemia E11.65 ; skilled nursing current use of insulin Z79.4 and Lumbago M54.5 [place] [address] [place] [id number] [place] [address] 88179- 9190 Dec, [facility] [address] [place] [id number] [place] [address] 42715- 9099 Dec, [facility] [address] [place] [id number] [place] [address] 25473- 8306 Dec, [facility] [address] [place] [id number] [place] [address] 69039 -3146 Dec, Pain of left leg M79.605 and Pain in right leg M79.604 [facility] [address] [place] [id number] [place] [address] 51056- 0604 Dec, [facility] [address] [place] [id number] [place] [address] 04994- 5362 Dec, Type 2 diabetes mellitus with hyperglycemia E11.65 [facility] [address] [place] [id number] [place] [address] 40004- 9790 Dec, [place] [address] [place] [id number] [place] [address] 26850- 8947 Dec, Type 2 diabetes mellitus with hyperglycemia E11.65 ; skilled nursing current use of insulin Z79.4 ; Vagina, candidiasis B37.3 and Other chronic pain G89.29 [place] [address] [place] [id number] [place] [address] 34412- 2982 Nov, Panic disorder with agoraphobia F40.01 [place] [address] 45868- 7100 Nov, [place] [address] 78359- 0854 Nov, [place] [address] 51993- 7671 Nov, Hypoglycemia E16.2 [place] [address] 77262- 9685 Nov, [place] [address] 59719- 3166 Nov, [place] [address] 91133- 7870 Nov, [place] [address] [place] [id number] [place] [address] 36963- 6205 Nov, Type 2 diabetes mellitus with hyperglycemia E11.65 and 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 [place] [address] [place] [id number] [place] [address] 89802- 5193 Nov, Panic disorder with agoraphobia F40.01 ; Bipolar 2 disorder F31.81 ; Chronic post-traumatic stress disorder (PTSD) F43.12 and Epilepsy G40.909 [place] [address] [place] [id number] [place] [address] 06274- 4950 Nov, Panic disorder with agoraphobia F40.01 [place] [address] [place] [id number] [place] [address] 29751- 9704 Oct, [facility] [id number] [place] [address] 84678- 3711 Oct, [facility] [id number] [place] [address] 15802- 5628 Oct, Bipolar 2 disorder F31.81 ; Panic disorder with agoraphobia F40.01 and Mood disorder F39 [facility] [id number] [place] [address] [id number]- 2834 Oct, Diabetes E11.9 ; Type 2 diabetes mellitus with hyperglycemia E11.65 and 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 [facility] [id number] [place] [address] [id number]- [id number] Oct, [facility] [id number] [place] [address] 09196- 8930 Sep, [facility] [id number] [place] [address] 14879- 9710 Sep, Bipolar 2 disorder F31.81 and Mood disorder F39 [facility] [id number] [place] [address] 61784- [id number] Sep, [facility] [id number] [place] [address] 56138- 1590 Sep, Uncontrolled type 2 diabetes mellitus without complication, without long-term current use of insulin E11.65 [facility] [id number] [place] [address] 58019- 2974 Sep, [facility] [id number] [place], [place] [address] 63463- 7647 Sep, [facility] [id number] [place] [address] 34708- 3032 Sep, [facility] [id number] [place] [address] 87651- 7236 Sep, [facility] [id number] [place] [address] 91440- 0465 Sep, Bipolar 2 disorder F31.81 ; Chronic post-traumatic stress disorder (PTSD) F43.12 ; Panic disorder with agoraphobia F40.01 and Epilepsy G40.909 [facility] [id number] [place] [address] 12932- 7006 Sep, Bipolar 2 disorder F31.81 ; PTSD (post-traumatic stress disorder) F43.10 and Panic disorder with agoraphobia F40.01 [facility] [address] 28794- 3876 Sep, [facility] [address] 57714- 7712 28 Aug, 2016 History of seizures Z87.898 ; Panic disorder with agoraphobia F40.01 and Bipolar 2 disorder F31.81 [facility] [address] 33041- 1900 Aug, [facility] [address] 75819- 9948 17 Aug, 2016 [facility] [address] 21905- 3380 Aug, [facility] [address] 31026- 4148 Aug, [facility] [id number] [place] [address] 35590- 8611 Aug, [facility] [address] 26241- 6614 Aug, [facility] [address] 43428- 9238 Aug, Hypoglycemia E16.2 and Bilateral impacted cerumen H61.23 [facility] [address] 47903- 5976 Aug, [facility] [address] 82521- 0000 Jul, [facility] [id number] [place] [address] 81075- 8674 Jul, [facility] [id number] [place] [address] 34554- 1108 Jul, Bipolar 2 disorder F31.81 ; Panic disorder with agoraphobia F40.01 ; PTSD (post-traumatic stress disorder) F43.10 and Epilepsy G40.909 [facility] [id number] [place] [address] 58769- 8188 Jul, [facility] [id number] [place] [address] 50968- 5465 Jul, Type 2 diabetes mellitus without complications E11.9 and Coughing R05 [facility] [id number] [place] [address] 71181- 0705 Jul, [facility] [id number] [place] [address] 42974- 2212 Jun, [facility] [id number] [place] [address] 59975- 3795 Jun, Bipolar 2 disorder F31.81 ; PTSD (post-traumatic stress disorder) F43.10 and Panic disorder with agoraphobia F40.01 [facility] [id number] [place] [address] 89631- 4856 Jun, [facility] [id number] [place] [address] 75278- 3734 Jun, [facility] [id number] [place] [address] 51004- 0208 Jun, [facility] [id number] [place] [address] 89295- 6654 Jun, Type 2 diabetes mellitus without complications E11.9 and COPD (chronic obstructive pulmonary disease) J44.9 [facility] [address] [id number] May, Dental examination Z01.20 and Dental caries K02.9 [facility] [id number] [place] [address] 68841- 0378 May, Bipolar 2 disorder F31.81 ; PTSD (post-traumatic stress disorder) F43.10 and Panic disorder with agoraphobia F40.01 [facility] [id number] [place] [address] 56110- 9842 May, Lumbago with sciatica, right side M54.41 ; Other chronic pain G89.29 and Uncontrolled type 2 diabetes mellitus without complication, without long-term current use of insulin E11.65 [facility] [address] 00944- 4451 May, Chronic bronchitis, unspecified chronic bronchitis type J42 [facility] [id number] [place] [address] 16374- 8308 May, [facility] [address] 08694- 3923 May, [facility] [id number] [place] [address] 53551- 2104 May, Chest pain, unspecified type R07.9 ; Tobacco use Z72.0 ; Type 2 diabetes mellitus without complications E11.9 ; Essential hypertension I10 ; Hyperlipidemia, unspecified hyperlipidemia type E78.5 ; Obesity (BMI 30- 39.9) E66.9 ; History of hypothyroidism Z86.39 ; Chronic obstructive pulmonary disease, unspecified COPD type J44.9 ; Anxiety F41.9 ; Bilateral claudication of lower limb I73.9 and Bipolar 2 disorder F31.81 [facility] [id number] [place] [address] 12199- 5876 May, Bipolar 2 disorder F31.81 ; Panic disorder with agoraphobia F40.01 and Tobacco abuse Z72.0 [facility] [id number] [place] [address] 67022- 4134 Apr, [facility] [address] 30617- 3404 Apr, [facility] [id number] [place] [address] 49992- 3113 Apr, [facility] [address] 12948- 3373 Apr, Bipolar 2 disorder F31.81 ; Panic disorder with agoraphobia F40.01 and PTSD (post-traumatic stress disorder) F43.10 [facility] [id number] [place] [address] 62065- 8811 Apr, Chronic bronchitis, unspecified chronic bronchitis type J42 ; Cervical neuritis M54.12 and Thoracic neuritis M54.14 [facility] [address] 53178- 9387 Apr, [facility] [id number] [place] [address] 71945- 9134 Apr, Cervicalgia M54.2 [facility] [address] 86524- 7132 Apr, Bipolar 2 disorder F31.81 ; Panic disorder with agoraphobia F40.01 and PTSD (post-traumatic stress disorder) F43.10 [facility] [id number] [place] [address] 87653 -0869 Apr, [facility] [id number] [place] [address] 36529 -2755 Apr, Cough R05 and Tobacco dependence F17.200 [facility] [id number] [place] [address] 02592- 2973 Apr, [facility] [id number] [place] [address] 77587- 3074 Apr, [facility] [id number] [place] [address] 02857- 7525 March, Bipolar 2 disorder F31.81 ; Panic disorder with agoraphobia F40.01 and Generalized anxiety disorder F41.1 [facility] [address] [place] [address] March, Closed displaced fracture of fifth metatarsal bone of right foot with routine healing, subsequent encounter S92.351D [facility] [id number] [place] [address] 62814- 2483 March, Bronchitis J40 [facility] [id number] [place] [address] 66600- 2783 March, [facility] [id number] [place] [address] 50925- 6400 March, [facility] [id number] [place] [address] 49325- 0608 March, Foot pain, right M79.671 ; Cervicalgia M54.2 and 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 mellitus without complication, unspecified senior living insulin use status E11.9 [facility] [id number] [place] [address] 67696- 3187 March, Fracture of fifth metatarsal bone of right foot S92.351A [facility] [id number] [place] [address] 65859- 6627 March, [facility] [id number] [place] [address] 55563- 4417 Jan, Fracture of fifth metatarsal bone of right foot S92.351A [facility] [id number] [place] [address] 30675- 1749 Jan, Bipolar 2 disorder F31.81 ; PTSD (post-traumatic stress disorder) F43.10 ; Panic disorder with agoraphobia F40.01 and Epilepsy G40.909 [facility] [id number] [place] [address] 06525- 5898 Jan, History of CA (myocardial infarction) I25.2 and History of high cholesterol Z86.39 [facility] [address] [place] [address] 17655- 9793 Jan, Bipolar 2 disorder F31.81 ; Panic disorder with agoraphobia F40.01 ; Tobacco abuse Z72.0 and PTSD (post-traumatic stress disorder) F43.10 [facility] [id number] [place] [address] 37627- 0625 Jan, Fracture of fifth metatarsal bone of right foot S92.351A [facility] [address] 34324- 2992 Jan, [facility] [address] 00234- 3326 Jan, History of high cholesterol Z86.39 [facility] [address] 778584- 2437 Jan, History of CA (myocardial infarction) I25.2 [facility] [address] 73116- 2606 Jan, [facility] [address] 15854- 3102 31 Jan, 2016 Back pain M54.9 ; Diabetes E11.9 ; Right knee pain M25.561 and Chest pain R07.9 [facility] [address] 42050- 6803 Dec, [facility] [id number] [place] [address] 68144- 5568 24 Jan, 2016 [facility] [address] 50925- 8586 Dec, Cervicalgia M54.2 [facility] [address] 81934- 9219 17 Jan, 2016 Bipolar 2 disorder F31.81 ; PTSD (post-traumatic stress disorder) F43.10 ; Panic disorder with agoraphobia F40.01 and Epilepsy G40.909 [facility] [id number] [place] [address] 58862- 6984 08 Jan, 2016 Bipolar 2 disorder F31.81 ; PTSD (post-traumatic stress disorder) F43.10 and Panic disorder with agoraphobia F40.01 [facility] [id number] [place] [address] 42391- 2896 Dec, Diabetes E11.9 [facility] [id number] [place] [address] 46339- 5837 Dec, [facility] [id number] [place] [address] 66532- 6598 Dec, Other chronic pain G89.29 ; Hepatitis C B19.20 and History of seizures Z87.898 [facility] [id number] [place] [address] 36441- 7960 24 Dec, 2015 [facility] [id number] [place] [address] 00016- 5863 Dec, Bipolar 2 disorder F31.81 and Other chronic pain G89.29 [facility] [id number] [place] [address] 83360- 5430 Dec, Cervicalgia M54.2 and Diabetes E11.9 [facility] [id number] [place] [address] 51084- 6924 Dec, [facility] [id number] [place] [address] 56364- 1720 Dec, [facility] [id number] [place] [address] 54951- 4341 Dec, [facility] [id number] [place] [address] 93828- 0698 16 Dec, 2015 [facility] [id number] [place] [address] 74870- 3531 Dec, Type 2 diabetes mellitus without complications E11.9 [facility] [id number] [place] [address] 15971- 2575 10 Dec, 2015 [facility] [id number] [place] [address] 61857- 8368 09 Dec, 2015 History of seizures Z87.898 and Hepatitis C B19.20 [facility] [id number] [place] [address] 87906- 4269 Dec, Hepatitis C B19.20 [facility] [address] 48512- 2661 Dec, [facility] [address] 36894- 1077 Dec, Cervicalgia M54.2 ; COPD (chronic obstructive pulmonary disease) J44.9 and Hepatitis C B19.20 [facility] [address] 41166- 7654 Dec, Bipolar 2 disorder F31.81 ; History of hypertension Z86.79 ; History of anxiety Z86.59 ; Panic disorder with agoraphobia F40.01 and Epilepsy G40.909 [facility] [address] 05585- 9953 Nov, [facility] [address] 83608- 0826 Nov, [address] 41303- 4335 Nov, History of seizures Z87.898 ; OAB (overactive bladder) N32.81 ; Lumbago M54.5 ; Other chronic pain G89.29 ; Cervicalgia M54.2 ; Tobacco abuse Z72.0 ; Tobacco abuse counseling Z71.6 and Impaired fasting glucose R73.01 [facility] [id number] [place] [address] 36622- 6138 Nov, Bipolar 2 disorder F31.81 ; PTSD (post-traumatic stress disorder) F43.10 ; History of anxiety Z86.59 ; History of COPD Z87.09 ; Panic disorder with agoraphobia F40.01 and Moderate depressed bipolar I disorder F31.[address] 04016- 9517 Nov, PTSD (post-traumatic stress disorder) F43.10 [facility] [address] [id number] 11 Nov, 2015 Dental examination Z01.20 and Dental caries K02.9 [facility] [address] [place] [address] 80145- 7370 08 Nov, 2015 History of hypertension Z86.79 ; History of hypothyroidism Z86.39 ; History of high cholesterol Z86.39 ; History of COPD Z87.09 and Overactive bladder N32.81 [facility] [address] [place] [address] 80628- 0532 Nov, Bipolar 2 disorder F31.81 and PTSD (post-traumatic stress disorder) F43.10 [facility] [address] [place] [address] 38181- 2802 Nov, PTSD (post-traumatic stress disorder) F43.10 ; Panic disorder with agoraphobia F40.01 ; Epilepsy G40.909 and Moderate depressed bipolar I disorder F31.32 [facility] [address] [place] [address] 77049- 2999 Nov, [facility] [id number] [place] [address] 53015- 1807 Nov, [facility] [address] [place] [address] 20677- 8933 Oct, [facility] [id number] [place] [address] 77428- 0090 Oct, Generalized anxiety disorder F41.1 ; Major depression, recurrent F33.9 and PTSD (post-traumatic stress disorder) F43.10 [facility] [id number] [place] [address] 34970- 8976 Oct, Elevated fasting glucose R73.01 [facility] [address] [place] [address] 69208- 8164 Oct, Elevated fasting glucose R73.01 [facility] [address], [place] [address]- 4068 17 Oct, 2015 History of COPD Z87.09 [facility] [id number] [place] [address] 17950- 4709 15 Oct, 2015 General medical exam Z00.00 ; History of hypertension Z86.79 ; History of hypothyroidism Z86.39 ; History of hepatitis Z86.19 ; History of high cholesterol Z86.39 and History of seizures Z87.898 [facility] [address] [place] [address] 82375- 9863 10 Oct, 2015 General medical exam Z00.00 ; History of hypertension Z86.79 ; History of hypothyroidism Z86.39 ; Bipolar 2 disorder F31.81 ; PTSD ( post-traumatic stress disorder) F43.10 ; History of hepatitis Z86.19 ; History of high cholesterol Z86.39 ; History of anxiety Z86.59 ; History of seizures Z87.898 ; History of CA (myocardial infarction) I25.2 and History of COPD Z87.09 [facility] [address] [place] [address] 59779- 7088 Oct, Generalized anxiety disorder F41.1 ; Depression F32.9 and PTSD (post-traumatic stress disorder) F43.10 [facility] [address], [place] [address]- 2729 Jan, [facility] [address] [address]- 3334 Jan, [facility] [address] [address]- 5364 Jun, [facility] [address] [place] [id number] Jun, [facility] [id number] [place] [address] 67403- 6726 May, [facility] [address], [place] [address]- 0096 May, [facility] [address] [place] [id number] May, [facility] [address] [facility] [id number] [place] [address]- 2524 May, [facility] [address] [place] [id number] May, [facility] [address] [facility] [id number] [place] [address]- 6076 May, IMMUNIZATIONS No Known Immunizations SOCIAL HISTORY Never Assessed REASON FOR VISIT Controlled Med Refill 04/07/18 PLAN OF CARE VITAL SIGNS MEDICATIONS Medication Instructions Dosage Frequency Start Date End Date Duration Status Ferguson 10-325 MG Orally 3 times a day 1 tablet as needed 8h Apr, 28 days Active RESULTS No Results PROCEDURES [...]
--- OUTSIDE RECORDS SUMMARY | 2019-01-26 07:54 | XMS REPORT ---
Author Author CATALINA HERNANDEZ [facility] Address [address] [place] [address] Care Team Providers Care Rug Weaver Name Role Phone CATALINA HERNANDEZ Unavailable PROBLEMS Type Condition ICD9-CM Code VIR59-OM Code Onset Dates Condition Status SNOMED Code Problem OAB (overactive bladder) N32.81 Active 192504690 Problem Epilepsy G40.909 Active 14141942 Problem Cervicalgia M54.2 Active 29281658 Problem Other chronic pain G89.29 Active 76037800 Problem Tobacco abuse Z72.0 Active 45440128 Problem Lumbago M54.5 Active 346178953 Problem Hepatitis C B19.20 Active 39784790 Problem COPD (chronic obstructive pulmonary disease) J44.9 Active 23824172 Problem Diabetes E11.9 Active 38319873 Problem Bipolar I disorder with duy F31.10 Active 04013340 Problem Type 2 diabetes mellitus without complications E11.9 Active 474268535 Problem Stress incontinence of urine N39.3 Active 45198390 Problem Bilateral claudication of lower limb I73.9 Active 791930506 Problem Seasonal allergic rhinitis due to other allergic trigger J30.89 Active 038628976 Problem Hyperlipidemia, unspecified hyperlipidemia type E78.5 Active 27884089 Problem Hypertension, unspecified type I10 Active 07624556 Problem Chronic tension-type headache, not intractable G44.229 Active 497593179 Problem 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 mellitus without complication, without long -term current use of insulin E11.9 Active 211628256 Problem Type 2 diabetes mellitus with hyperglycemia E11.65 Active 968697267 Problem Chronic post-traumatic stress disorder (PTSD) F43.12 Active 434985783 Problem History of hypothyroidism Z86.39 Active 483149887 Problem Hypoglycemia E16.2 Active 801678194 Problem El's esophageal ulceration K22.10 Active 444389830 Problem Bipolar affective disorder, currently depressed, mild F31.31 Active 836528224 Problem Irritable bowel syndrome with diarrhea K58.0 Active 144646752 Problem Stress incontinence N39.3 Active 03609837 Problem History of hypertension Z86.79 Active 411482445 Problem Uncontrolled type 2 diabetes mellitus without complication, without long-term current use of insulin E11.65 Active 288410724 Problem Panic disorder with agoraphobia F40.01 Active 67229605 Problem Type 2 diabetes mellitus with hyperglycemia E11.65 Active 517715471 Problem History of seizures Z87.898 Active 418136185 Problem assisted current use of insulin Z79.4 Active 377508652 Problem History of CO (myocardial infarction) I25.2 Active 572533902 Problem Mood disorder F39 Active 34890736 Problem Bipolar 2 disorder F31.81 Active 79763431 Problem Gastritis and duodenitis K29.90 Active 002646186 Problem History of high cholesterol Z86.39 Active 816527839 Problem Bipolar I disorder with mood-congruent psychotic features F31.9 Active 420528947 Problem Hypertension, benign I10 Active 94547696 Problem Primary insomnia F51.01 Active 6875227 ALLERGIES Substance Reaction Event Type Date Status Penicillin V Potassium Unknown Drug Allergy March, Active Metformin HCl diarrhea Drug Allergy March, Active Macrobid stomach upset Drug Allergy March, Active Iodine anaphylaxis Drug Allergy March, Active Fentanyl halucinations/insomnia Drug Allergy March, Active ENCOUNTERS Encounter Location Date Diagnosis [place] [id number] [place] [address] 37478- 7990 11 Jul, 2018 [place] [id number] [place] [address] 80169- 7451 17 Jun, 2018 [place] [id number] [place] [address] 91855- 3479 16 Jun, 2018 [place] [address] [address]60- 5577 14 Jun, 2018 Bipolar affective disorder, currently depressed, mild F31.31 ; Chronic post-traumatic stress disorder (PTSD) F43.12 and Panic disorder with agoraphobia F40.01 [place] [address] [address]- 1344 Jun, [facility] [address] [id number] [place] [address] Jun, [facility] [address] [facility] [id number] [place] [address] 3[address] Jun, Type 2 diabetes mellitus with hyperglycemia E11.65 [facility] [address] [id number] [place] [address] 8846 Jun, Uncontrolled type 2 diabetes mellitus with hyperglycemia E11.65 [facility] [address] [id number] [place] [address] 3480 Jun, [facility] [address] [facility] [id number] [place] [address]- 5912 May, Lumbago M54.5 [facility] [address] [facility] [id number] [place] [id number] May, [facility] [address] [facility] [id number] [place] [address] 8157 May, [facility] [address] [facility] [id number] [place] [address]- 0912 May, [facility] [address] [facility] [id number] [place] [address]- 8883 May, [facility] [address] [facility] [id number] [address] 9[address] May, [facility] [address] [facility] [id number] [address] 2505 May, [facility] [address] [facility] [id number] [address] 9722 May, [facility] [address] [facility] [id number] [place] [address]- 9277 May, Lumbago M54.5 [facility] [address] [facility] [id number] [place] [address] May, [facility] [address] [facility] [id number] [place] [address] 47933- [address] Apr, [address] of the chest R93.8 [place] [id number] [place] [address] 65880- 5121 Apr, Bipolar 2 disorder F31.81 ; Chronic post-traumatic stress disorder (PTSD) F43.12 and Panic disorder with agoraphobia F40.01 [place] [id number] [place] [address] 18102- [address] Apr, [address] of the chest R93.8 [place] [id number] [place] [address] 65267- [address] Apr, [address] of the chest R93.8 [place] [id number] [place] [address] 31931- 1836 Apr, [place] [id number] [place] [address] 43442- 7036 Apr, Type 2 diabetes mellitus with hyperglycemia E11.65 [place] [id number] [place] [address] 35094- 9369 Apr, 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 mellitus without complication, without long-term current use of insulin E11.9 ; Watery eyes H04.203 ; Low back pain M54.5 ; Other chronic pain G89.29 ; Chronic tension-type headache, not intractable G44.229 ; Uncontrolled type 2 diabetes mellitus without complication , without long-term current use of insulin E11.65 and Bronchitis J40 [place] [id number] [place] [address] 50286- 9622 Apr, [place] [address] [place] [address] 57010- 4666 Apr, Lumbago M54.5 [place] [id number] [place] [address] 30672- 7123 March, [facility] [id number] [place] [address] 40543 -9037 March, Cough R05 ; Pneumonia due to infectious organism, unspecified laterality, unspecified part of lung J18.9 and Non-intractable vomiting with nausea, unspecified vomiting type R11.2 [facility] [id number] [place] [address] 14380- 1349 March, Bronchitis J40 [facility] [id number] [place] [address] 78977- 5923 March, [facility] [address] 79222- 7890 March, El's esophageal ulceration K22.10 and Type 2 diabetes mellitus with hyperglycemia E11.65 [place] [id number] [place] [address] 86569- 1905 March, Panic disorder with agoraphobia F40.01 ; Chronic post- traumatic stress disorder (PTSD) F43.12 and Bipolar 2 disorder F31.81 [place] [id number] [place] [address] 84677- 3794 March, Type 2 diabetes mellitus with hyperglycemia E11.65 [place] [id number] [place] [address] 40001- 6697 March, [place] [id number] [place] [address] 18439- 1066 March, Lumbago M54.5 [place] [id number] [place] [address] 20107- 2585 March, [place] [id number] [place] [address] 57139- 5937 March, Irritable bowel syndrome with diarrhea K58.0 ; Primary insomnia F51.01 ; Type 2 diabetes mellitus with hyperglycemia E11.65 and long term care social worker current use of insulin Z79.4 [place] [id number] [place] [address] 60351- 9884 March, [facility] [id number] [place] [address] 05349- 5815 Jan, [place] [id number] [place] [address] 51886- 5200 Jan, [place] [id number] [place] [address] 03980- 3283 Jan, [place] [id number] [place] [address] 68756- 6416 Jan, [address] 62527- 3372 Jan, Dizziness R42 [address] 27565- 4435 Jan, Bipolar affective disorder, currently depressed, mild F31.31 ; Panic disorder with agoraphobia F40.01 and Chronic post-traumatic stress disorder (PTSD) F43.[address] 02134- 7416 Jan, Dizziness R42 [place] [address] 29343- 8173 Jan, Chest pain, unspecified type R07.9 ; Exertional dyspnea R06.09 ; Hypertension, unspecified type I10 and Hyperlipidemia, unspecified hyperlipidemia type E78.5 [place] [id number] [place] [address] 99117- 8953 Jan, [place] [id number] [place] [address] 26978- 1462 Jan, Lumbago M54.5 [place] [id number] [place] [address] 23767- 6400 Jan, El's esophageal ulceration K22.10 ; Blister (nonthermal ) of oral cavity, initial encounter S00.522A ; Local infection of the skin and subcutaneous tissue, unspecified L08.9 ; Type 2 diabetes mellitus with hyperglycemia E11.65 ; long term care social worker current use of insulin Z79.4 and Stress incontinence N39.3 [place] [id number] [place] [address] 37057- 3536 Dec, [facility] [address] [address] 1978 Dec, [facility] [id number] [place] [address] 41932- 7252 19 Dec, 2017 [facility] [address] [id number] 16 Dec, 2017 Dental examination Z01.20 [facility] [id number] [place] [address] 82610- 6358 15 Dec, 2017 Acute pain of right knee M25.561 [facility] [id number] [place] [address] 66020- 0631 14 Dec, 2017 [facility] [id number] [place] [address] 39546- 5878 Dec, [facility] [id number] [place] [address] 84323- 8270 14 Dec, 2017 Lumbago M54.5 ; Acute pain of right knee M25.561 and Seasonal allergic rhinitis due to other allergic trigger J30.89 [facility] [id number] [place] [address] 39512- 6724 Dec, Type 2 diabetes mellitus with hyperglycemia E11.65 [facility] [id number] [place] [address] 29896- 5356 08 Dec, 2017 [facility] [id number] [place] [address] 33265- 3540 Dec, [facility] [id number] [place] [address] 60471- 4797 Dec, [facility] [id number] [place] [address] 24441- 8651 Dec, [facility] [id number] [place] [address] 16988- 0523 15 Dec, 2017 Chronic post-traumatic stress disorder (PTSD) F43.12 and Panic disorder with agoraphobia F40.01 [facility] [address] [place] [address] 91661- 7495 13 Dec, 2017 Low back pain M54.5 [facility] [id number] [place] [address] 60897- 5043 12 Dec, 2017 Type 2 diabetes mellitus with hyperglycemia E11.65 ; assisted current use of insulin Z79.4 ; Low back pain M54.5 ; Other chronic pain G89.29 and Encounter for therapeutic drug level monitoring Z51.81 [facility] [id number] [place] [address] 01023- 7836 09 Dec, 2017 Coughing R05 [place] [id number] [place] [address] 81579- 4251 Dec, [facility] [id number] [place] [address] [id number] 07 Dec, 2017 Dental examination Z01.20 [place] [id number] [place] [address] 17743- 2631 Nov, Type 2 diabetes mellitus without complications E11.9 and Encounter for therapeutic drug level monitoring Z51.81 [place] [id number] [place] [address] 22263- 4403 Nov, [place] [id number] [place] [address] 05614- 6151 Oct, Type 2 diabetes mellitus without complications E11.9 [place] [id number] [place] [address] 06164- 3622 Oct, Type 2 diabetes mellitus with hyperglycemia E11.65 [place] [id number] [place] [address] 89572- 1935 Aug, Type 2 diabetes mellitus without complications E11.9 [place] [id number] [place] [address] 85591- 4352 Aug, Type 2 diabetes mellitus without complications E11.9 ; Hypoglycemia E16.2 ; Lumbago M54.5 ; Stress incontinence of urine N39.3 and History of CO (myocardial infarction) I25.2 [facility] [address] [address]- 5266 Jun, [facility] [id number] [place] [address] 81362- 7655 May, [facility] [id number] [place] [address] 22665- 9355 Apr, Panic disorder with agoraphobia F40.01 [facility] [id number] [place] [address] 93568- 9588 Apr, Panic disorder with agoraphobia F40.01 [facility] [id number] [place] [address] 87782- 7818 Apr, [facility] [id number] [place] [address] 31393- 1519 March, Other chronic pain G89.29 [facility] [id number] [place] [address] 20154- 7567 March, [facility] [address] [place] [address] 15404- 3380 March, [facility] [id number] [place] [address] 52260- 1698 March, [facility] [address] [address]- 2904 March, [facility] [address] [address]- 5082 March, Type 2 diabetes mellitus without complications E11.9 [facility] [address] [address]- 2852 March, Diarrhea, unspecified type R19.7 [facility] [address] [address]- 2923 March, Bipolar 2 disorder F31.81 ; Chronic post-traumatic stress disorder (PTSD) F43.12 and Type 2 diabetes mellitus with hyperglycemia E11.65 [place] [address] [address]- 0866 March, [facility] [id number] [place] [address] 55278- 9026 March, [place] [id number] [place] [address] 53640- 9127 March, Hypertension, benign I10 ; Type 2 diabetes mellitus with hyperglycemia E11.65 ; Hepatitis C B19.20 ; Gastritis and duodenitis K29.90 and Dysuria R30.0 [place] [id number] [place] [address] 47030- 1097 March, Hypertension, benign I10 ; Type 2 diabetes mellitus with hyperglycemia E11.65 ; Hepatitis C B19.20 ; Gastritis and duodenitis K29.90 and Dysuria R30.0 [place] [id number] [place] [address] 92519- 5054 March, Panic disorder with agoraphobia F40.01 ; Chronic post- traumatic stress disorder (PTSD) F43.12 ; Epilepsy G40.909 and Bipolar I disorder with mood-congruent psychotic features F31.9 [place] [id number] [place] [address] 10247- 4096 March, [place] [id number] [place] [address] 53181- 0630 March, Type 2 diabetes mellitus with hyperglycemia E11.65 [place] [id number] [place] [address] 03129- 6232 Jan, Bipolar I disorder with duy F31.10 [place] [id number] [place] [address] 16297- 3191 Jan, Bipolar 2 disorder F31.81 ; Chronic post-traumatic stress disorder (PTSD) F43.12 and Type 2 diabetes mellitus with hyperglycemia E11.65 [place] [address] [place] [address] 41331- 1709 Jan, [place] [id number] [place] [address] 24858- 5597 17 Jan, 2017 [facility] [id number] [place] [address] 60463- 0938 14 Jan, 2017 Panic disorder with agoraphobia F40.01 [facility] [id number] [place] [address] 22378- 3759 13 Jan, 2017 Panic disorder with agoraphobia F40.01 ; Bipolar I disorder with mood-congruent psychotic features F31.9 ; Chronic post-traumatic stress disorder (PTSD) F43.12 and Epilepsy G40.909 [place] [id number] [place] [address] 87965- 4248 Jan, [facility] [id number] [place] [address] 24550- 3565 Jan, [facility] [id number] [place] [address] 41386- 0646 10 Jan, 2017 Type 2 diabetes mellitus without complications E11.9 and Hypoglycemia E16.2 [place] [id number] [place] [address] 08750- 7707 07 Jan, 2017 Type 2 diabetes mellitus without complications E11.9 ; Primary insomnia F51.01 and Hypertension, benign I10 [facility] [id number] [place] [address] 60847- 4052 06 Jan, 2017 [facility] [id number] [place] [address] [id number] Jan, [facility] [id number] [place] [address] 70493- 7609 Dec, Type 2 diabetes mellitus with hyperglycemia E11.65 [facility] [id number] [place] [address] 49173- 8625 Dec, [facility] [id number] [place] [address] 67505- 3395 Dec, Bipolar 2 disorder F31.81 ; Panic disorder with agoraphobia F40.01 ; Chronic post-traumatic stress disorder (PTSD) F43.12 and Epilepsy G40.909 [facility] [id number] [place] [address] 95057- 2466 Dec, [facility] [id number] [place] [address] 47988- 6369 Dec, [facility] [id number] [place] [address] 47491- 5611 Dec, Bipolar 2 disorder F31.81 ; Panic disorder with agoraphobia F40.01 ; Chronic post-traumatic stress disorder (PTSD) F43.12 and Epilepsy G40.909 [place] [address] 83693- 3126 Dec, [place] [id number] [place] [address] 83500- 7609 Dec, [place] [address] 02502- 3939 Dec, [place] [id number] [place] [address] 19816- 5395 Dec, Type 2 diabetes mellitus with hyperglycemia E11.65 ; assisted current use of insulin Z79.4 and Lumbago M54.5 [place] [id number] [place] [address] 04365- 3931 Dec, [place] [id number] [place] [address] 98181- 3087 Dec, [facility] [id number] [place] [address] 58351- 6902 Dec, [facility] [address] 25754 -1934 Dec, Pain of left leg M79.605 and Pain in right leg M79.604 [place] [id number] [place] [address] 78860- 9325 Dec, [place] [address] [address]- 9110 08 Dec, 2016 Type 2 diabetes mellitus with hyperglycemia E11.65 [place] [id number] [place] [address] 94985- 6521 Dec, [place] [id number] [place] [address] 98028- 2790 Dec, Type 2 diabetes mellitus with hyperglycemia E11.65 ; long term care social worker current use of insulin Z79.4 ; Vagina, candidiasis B37.3 and Other chronic pain G89.29 [place] [id number] [place] [address] 00468- 3270 Nov, Panic disorder with agoraphobia F40.01 [place] [id number] [place] [address] 16600- 0182 Nov, [place] [id number] [place] [address] 91233- 7574 Nov, [place] [id number] [place] [address] 96554- 9735 Nov, Hypoglycemia E16.2 [place] [id number] [place] [address] [phone]- [phone] Nov, [place] [id number] [place] [address] [id number] Nov, [place] [id number] [place] [address] [phone]- [phone] Nov, [place] [address] [id number] [place] [address] [phone]- [phone] Nov, Type 2 diabetes mellitus with hyperglycemia E11.65 and long term care social worker current use of insulin Z79.4 [place] [id number] [place] [address] 12230- 2229 Nov, Panic disorder with agoraphobia F40.01 ; Bipolar 2 disorder F31.81 ; Chronic post-traumatic stress disorder (PTSD) F43.12 and Epilepsy G40.909 [facility] [id number] [place] [address] [id number]- [phone] Nov, Panic disorder with agoraphobia F40.01 [facility] [id number] [place] [address] [id number]- [phone] 16 Oct, 2016 [facility] [id number] [place] [address] 97110- 5142 Oct, [facility] [id number] [place] [address] [phone]- 1284 Oct, Bipolar 2 disorder F31.81 ; Panic disorder with agoraphobia F40.01 and Mood disorder F39 [place] [id number] [place] [address] 76834- [phone] Oct, Diabetes E11.9 ; Type 2 diabetes mellitus with hyperglycemia E11.65 and assisted current use of insulin Z79.4 [place] [id number] [place] [address] 52795- 5246 Oct, [facility] [id number] [place] [address] 95493- 5805 Sep, [place] [id number] [place] [address] 63302- 1081 Sep, Bipolar 2 disorder F31.81 and Mood disorder F39 [facility] [id number] [place] [address] 37195- 7240 Sep, [facility] [id number] [place] [address] 61512- 1212 Sep, Uncontrolled type 2 diabetes mellitus without complication, without long-term current use of insulin E11.65 [facility] [id number] [place] [address] 37411- 2638 Sep, [facility] [id number] [place] [address] 46005- 4666 Sep, [facility] [id number] [place] [address] 50444- 3665 Sep, [facility] [id number] [place] [address] 36082- 7746 Sep, [facility] [address] 767672- 1662 Sep, Bipolar 2 disorder F31.81 ; Chronic post-traumatic stress disorder (PTSD) F43.12 ; Panic disorder with agoraphobia F40.01 and Epilepsy G40.909 [facility] [address] 58675- 2739 Sep, Bipolar 2 disorder F31.81 ; PTSD (post-traumatic stress disorder) F43.10 and Panic disorder with agoraphobia F40.01 [facility] [id number] [place] [address] 37064- 9764 Sep, [facility] [address] 48587- 7309 Aug, History of seizures Z87.898 ; Panic disorder with agoraphobia F40.01 and Bipolar 2 disorder F31.81 [facility] [address] 18142- 3104 Aug, [facility] [id number] [place] [address] 32640- 1281 Aug, [facility] [id number] [place] [address] 06599- 7409 Aug, [facility] [address] 74961- 3549 Aug, [facility] [address] 11308- 8604 Aug, [facility] [id number] [place] [address] 14378- 2190 Aug, [facility] [id number] [place] [address] 79295- 7164 Aug, Hypoglycemia E16.2 and Bilateral impacted cerumen H61.23 [facility] [id number] [place] [address] 00127- 4458 Aug, [facility] [id number] [place] [address] 16924 2546 Jul, [facility] [id number] [place] [address] 18494- 8546 Jul, [facility] [address] 09103- 2484 Jul, Bipolar 2 disorder F31.81 ; Panic disorder with agoraphobia F40.01 ; PTSD (post-traumatic stress disorder) F43.10 and Epilepsy G40.909 [facility] [id number] [place] [address] 41680- 5686 Jul, [facility] [id number] [place] [address] 37832- 9250 Jul, Type 2 diabetes mellitus without complications E11.9 and Coughing R05 [facility] [id number] [place] [address] 78627- 2154 Jul, [facility] [id number] [place] [address] 59467 2542 Jun, [facility] [id number] [place] [address] 11120- 3249 Jun, Bipolar 2 disorder F31.81 ; PTSD (post-traumatic stress disorder) F43.10 and Panic disorder with agoraphobia F40.01 [facility] [id number] [place] [address] 53850- 9596 Jun, [facility] [id number] [place] [address] 63236 2546 Jun, [facility] [id number] [place] [address] 73910 2546 Jun, [facility] [id number] [place] [address] 64874- 1338 Jun, Type 2 diabetes mellitus without complications E11.9 and COPD (chronic obstructive pulmonary disease) J44.9 [facility] [id number] [place] [address] [id number] May, Dental examination Z01.20 and Dental caries K02.9 [place] [id number] [place] [address] 79469- 0488 May, Bipolar 2 disorder F31.81 ; PTSD (post-traumatic stress disorder) F43.10 and Panic disorder with agoraphobia F40.01 [place] [id number] [place] [address] 69886- 2115 May, Lumbago with sciatica, right side M54.41 ; Other chronic pain G89.29 and Uncontrolled type 2 diabetes mellitus without complication, without long-term current use of insulin E11.65 [place] [id number] [place] [address] 86329- 1643 May, Chronic bronchitis, unspecified chronic bronchitis type J42 [place] [id number] [place] [address] 30433- 8986 May, [place] [id number] [place] [address] 56929- 9141 May, [place] [id number] [place] [address] 43827- 8444 May, Chest pain, unspecified type R07.9 ; Tobacco use Z72.0 ; Type 2 diabetes mellitus without complications E11.9 ; Essential hypertension I10 ; Hyperlipidemia, unspecified hyperlipidemia type E78.5 ; Obesity (BMI 30- 39.9) E66.9 ; History of hypothyroidism Z86.39 ; Chronic obstructive pulmonary disease, unspecified COPD type J44.9 ; Anxiety F41.9 ; Bilateral claudication of lower limb I73.9 and Bipolar 2 disorder F31.81 [place] [id number] [place] [address] 05636- 2260 May, Bipolar 2 disorder F31.81 ; Panic disorder with agoraphobia F40.01 and Tobacco abuse Z72.0 [facility] [id number] [place] [address] 86466- 4187 30 Apr, 2016 [facility] [id number] [place] [address] 85644- 6719 Apr, [facility] [id number] [place] [address] 89448- 1391 Apr, [facility] [address] 26084- 6289 Apr, Bipolar 2 disorder F31.81 ; Panic disorder with agoraphobia F40.01 and PTSD (post-traumatic stress disorder) F43.10 [place] [id number] [place] [address] 04076- 0704 Apr, Chronic bronchitis, unspecified chronic bronchitis type J42 ; Cervical neuritis M54.12 and Thoracic neuritis M54.14 [place] [id number] [place] [address] 21515- 6255 Apr, [facility] [id number] [place] [address] 42856- 4367 Apr, Cervicalgia M54.2 [place] [id number] [place] [address] 89748- 9407 Apr, Bipolar 2 disorder F31.81 ; Panic disorder with agoraphobia F40.01 and PTSD (post-traumatic stress disorder) F43.10 [facility] [id number] [place] [address] 98760 -4051 13 Apr, 2016 [facility] [id number] [place] [address] 15706 -7369 09 Apr, 2016 Cough R05 and Tobacco dependence F17.200 [facility] [id number] [place] [address] 52164- 7181 Apr, [facility] [id number] [place] [address] 94716- 4365 Apr, [place] [id number] [place] [address] 71952- 6413 March, Bipolar 2 disorder F31.81 ; Panic disorder with agoraphobia F40.01 and Generalized anxiety disorder F41.1 [place] [id number] [place] [address] 29047- 8822 March, Closed displaced fracture of fifth metatarsal bone of right foot with routine healing, subsequent encounter S92.351D [place] [id number] [place] [address] 15666- 1338 March, Bronchitis J40 [place] [address] 52417- 9035 March, [place] [id number] [place] [address] 09514- 9967 March, [place] [address] 56705- 9437 March, Foot pain, right M79.671 ; Cervicalgia M54.2 and 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 mellitus without complication, unspecified mcc insulin use status E11.9 [place] [id number] [place] [address] 39741- 9511 March, Fracture of fifth metatarsal bone of right foot S92.351A [place] [id number] [place] [address] 07974- 5304 March, [place] [id number] [place] [address] 21665- 1464 Jan, Fracture of fifth metatarsal bone of right foot S92.351A [place] [id number] [place] [address] 41004- 5899 Jan, Bipolar 2 disorder F31.81 ; PTSD (post-traumatic stress disorder) F43.10 ; Panic disorder with agoraphobia F40.01 and Epilepsy G40.909 [place] [id number] [place] [address] 61508- 4520 Jan, History of CO (myocardial infarction) I25.2 and History of high cholesterol Z86.39 [place] [id number] [place] [address] 74250- 9936 Jan, Bipolar 2 disorder F31.81 ; Panic disorder with agoraphobia F40.01 ; Tobacco abuse Z72.0 and PTSD (post-traumatic stress disorder) F43.10 [place] [address] 37047- 9146 Jan, Fracture of fifth metatarsal bone of right foot S92.351A [place] [address] 37377- 1890 Jan, [place] [address] 56261- 9124 Jan, History of high cholesterol Z86.39 [place] [address] 83733- 1756 Jan, History of CO (myocardial infarction) I25.2 [place] [id number] [place] [address] 16207- 3197 Jan, [place] [id number] [place] [address] 56725- 0824 Dec, Back pain M54.9 ; Diabetes E11.9 ; Right knee pain M25.561 and Chest pain R07.9 [place] [id number] [place] [address] 91951- 7202 Dec, [place] [id number] [place] [address] 08559- 9522 24 Jan, 2016 [place] [address] 62334- 9074 Dec, Cervicalgia M54.2 [place] [id number] [place] [address] 64874- 4233 17 Jan, 2016 Bipolar 2 disorder F31.81 ; PTSD (post-traumatic stress disorder) F43.10 ; Panic disorder with agoraphobia F40.01 and Epilepsy G40.909 [place] [id number] [place] [address] 33045- 2552 08 Jan, 2016 Bipolar 2 disorder F31.81 ; PTSD (post-traumatic stress disorder) F43.10 and Panic disorder with agoraphobia F40.01 [place] [address] 10803- 1066 Dec, Diabetes E11.9 [place] [address] 44834- 2625 Dec, [place] [address] 50306- 7058 Dec, Other chronic pain G89.29 ; Hepatitis C B19.20 and History of seizures Z87.898 [place] [address] 76525- 7752 Dec, [place] [id number] [place] [address] 38615- 8184 Dec, Bipolar 2 disorder F31.81 and Other chronic pain G89.29 [place] [id number] [place] [address] 09201- 8277 Dec, Cervicalgia M54.2 and Diabetes E11.9 [place] [id number] [place] [address] 41107- 7735 Dec, [place] [id number] [place] [address] 42618- 6169 Dec, [place] [id number] [place] [address] 63137- 0420 Dec, [place] [id number] [place] [address] 79133- 6810 Dec, [place] [id number] [place] [address] 55671- 9443 Dec, Type 2 diabetes mellitus without complications E11.9 [place] [id number] [place] [address] 14327- 4821 Dec, [place] [address] 86478- 9727 Dec, History of seizures Z87.898 and Hepatitis C B19.20 [place] [address] 72627- 9796 Dec, Hepatitis C B19.20 [place] [address] 85648- 6727 Dec, [address] 52863- 5454 Dec, Cervicalgia M54.2 ; COPD (chronic obstructive pulmonary disease) J44.9 and Hepatitis C B19.[address] 40911- 6131 Dec, Bipolar 2 disorder F31.81 ; History of hypertension Z86.79 ; History of anxiety Z86.59 ; Panic disorder with agoraphobia F40.01 and Epilepsy G40.909 [place] [id number] [place] [address] 74539- 7787 Nov, [place] [id number] [place] [address] 06209- 3673 Nov, [place] [id number] [place] [address] 27842- 0328 Nov, History of seizures Z87.898 ; OAB (overactive bladder) N32.81 ; Lumbago M54.5 ; Other chronic pain G89.29 ; Cervicalgia M54.2 ; Tobacco abuse Z72.0 ; Tobacco abuse counseling Z71.6 and Impaired fasting glucose R73.01 [place] [id number] [place] [address] 31750- 4517 Nov, Bipolar 2 disorder F31.81 ; PTSD (post-traumatic stress disorder) F43.10 ; History of anxiety Z86.59 ; History of COPD Z87.09 ; Panic disorder with agoraphobia F40.01 and Moderate depressed bipolar I disorder F31.32 [place] [address] [place] [address] 33650- 1416 Nov, PTSD (post-traumatic stress disorder) F43.10 [facility] [address] [id number] Nov, Dental examination Z01.20 and Dental caries K02.9 [place] [id number] [place] [address] 98566- 3594 Nov, History of hypertension Z86.79 ; History of hypothyroidism Z86.39 ; History of high cholesterol Z86.39 ; History of COPD Z87.09 and Overactive bladder N32.81 [place] [id number] [place] [address] 40117- 3790 Nov, Bipolar 2 disorder F31.81 and PTSD (post-traumatic stress disorder) F43.10 [place] [address] [place] [address] 50976- 2103 Nov, PTSD (post-traumatic stress disorder) F43.10 ; Panic disorder with agoraphobia F40.01 ; Epilepsy G40.909 and Moderate depressed bipolar I disorder F31.32 [place] [id number] [place] [address] 35097- 8710 Nov, [place] [id number] [place] [address] 83809- 4236 Nov, [place] [address] [place] [address] 79935- 0574 Oct, [place] [id number] [place] [address] 79395- 3800 Oct, Generalized anxiety disorder F41.1 ; Major depression, recurrent F33.9 and PTSD (post-traumatic stress disorder) F43.10 [place] [address] [place] [address]- 2531 Oct, Elevated fasting glucose R73.01 [place] [address] [place] [address] 19024- 7779 Oct, Elevated fasting glucose R73.01 [place] [address] [address]- 0153 Oct, History of COPD Z87.09 [place] [address] [place] [address] 06457- 1639 15 Oct, 2015 General medical exam Z00.00 ; History of hypertension Z86.79 ; History of hypothyroidism Z86.39 ; History of hepatitis Z86.19 ; History of high cholesterol Z86.39 and History of seizures Z87.898 [place] [address] [place] [address] 16955- 0518 Oct, General medical exam Z00.00 ; History of hypertension Z86.79 ; History of hypothyroidism Z86.39 ; Bipolar 2 disorder F31.81 ; PTSD ( post-traumatic stress disorder) F43.10 ; History of hepatitis Z86.19 ; History of high cholesterol Z86.39 ; History of anxiety Z86.59 ; History of seizures Z87.898 ; History of CO (myocardial infarction) I25.2 and History of COPD Z87.09 [place] [address] [address]- 2553 Oct, Generalized anxiety disorder F41.1 ; Depression F32.9 and PTSD (post-traumatic stress disorder) F43.10 [place] [address] [address]- 4849 Jan, [place] [address] [place] [address] 54901- 7472 Jan, [place] [address] [address]- 2665 Jun, [facility] [address] [id number] Jun, [place] [id number] [address] 2546 May, [facility] [address] [facility] [id number] [address]- 5526 May, [facility] [address] [id number] May, [facility] [address] [facility] [id number] [address]- 2546 May, [facility] [address] [id number] May, [facility] [address] [facility] [id number] [address]- 5886 May, IMMUNIZATIONS No Known Immunizations SOCIAL HISTORY Never Assessed REASON FOR VISIT Cough since Thu and has gotten worse since treatment. Fever last night JStrasserRN PLAN OF CARE Activity Details Follow Up prn Reason: VITAL SIGNS Height 62 in 2018-03-31 Weight 165.0 lbs 2018-03-31 Temperature 97.2 degrees Fahrenheit 2018-03-31 Heart Rate 96 bpm 2018-03-31 Respiratory Rate 22 2018-03-31 Oximetry 94 % 2018-03-31 BMI 30.18 kg/m2 2018-03-31 Blood pressure systolic 120 mmHg 2018-03-31 Blood pressure diastolic 80 mmHg 2018-03-31 MEDICATIONS Medication Instructions Dosage Frequency Start Date End Date Duration Status Symbicort 160-4.5 MCG/ACT Inhalation Twice a day- rinse mouth and spit after use 2 puffs every day Apr, Active Aspirin 81 MG Orally Once a day 1 tablet 24h May, 30 day(s) Active Ditropan XL 10 mg Orally Once a day 1 tablet 24h Jan, Jun, 30 day(s) Active Microlet Lancets - as directed 8h March, Active Kingston 10-325 MG Orally 3 times a day 1 tablet as needed 8h March, 28 days Active Levothyroxine Sodium 150 MCG Orally Once a day 1 tablet 24h 10 Oct, 2015 Active Zofran ODT 4 MG Orally Every 8 hours PRN 1 tablet on the tongue and allow to dissolve 5 days Active Levemir 100 UNIT/ML Subcutaneous 2 times a day Inject 65 units 12h Dec, Active Lipitor 40 mg Orally Once a day 1 tablet 24h Active Atenolol 50 mg Orally Once a day 1 tablet 24h 30 Active Doxycycline Hyclate 100 mg Orally Twice a day 1 capsule 12h March, Apr, 10 days Active Amitriptyline HCl 25 MG Orally Once at bedtime for sleep 1 tablet March 30 day(s) Active Protonix 40 MG Orally Once a day 1 tablet 24h Jan, 30 day(s) Active Blood Glucose Monitor 1 glucometer test blood sugar Apr, Active Ventolin HFA 108 (90 Base) MCG/ACT Inhalation every 6 hrs 2 puffs as needed 6h Active Azithromycin 250 MG Orally Once a day 2 tablets on the first day, then 1 tablet daily for 4 days 24h 5 day(s) Active Promethazine-Codeine 6.25-10 MG/5ML Orally every 6 hrs 5 ml as needed 6h March, Active Insulin Syringe 31G X 5/16 subcutaneously 4 times a day Inject insulin 4 times daily as prescribed 6h Oct, Active Blood Glucose Test Strip And lancets. DX E11.9 Test fasting and 2 hours after meal test 3 times per day Dec, Active Cali Contour Next Test - In Vitro 3 times a day as directed 8h March, Active Montelukast Sodium 10 mg Orally Once a day 1 tablet 24h Oct, 30 days Active Xanax 2 MG Orally 3 times a day and can take 1/2 additional tablet for panic 1 tablet Active Metoprolol Tartrate 25 MG Orally Twice a day for panic 1 tablet with food March, 30 day(s) Active Nebulizer 1 as directed Apr, Active NovoLog 100 UNIT/ML DX E11.9 3 times a day before meals Inject 40 units Dec, Active Blood Glucose Monitor System w/Device DX- E11.9 Test fasting and 2 hours after meal test 3 times per day Dec, Active Albuterol Sulfate 1.25 MG/3ML Inhalation 4 times a day 3 ml as needed 6h Apr, Active Xyzal 5 MG Orally Once a day 1 tablet in the evening 24h 30 Active RESULTS Name Result Date Reference Range Xray : Chest 2 View (IN HOUSE) 2018-03-31 CBC w/MANUAL DIFF 2018-03-31 WHITE BLOOD CELL COUNT 6.5 3.8-10.8 RED BLOOD CELL COUNT 4.36 3.80-5.10 HEMOGLOBIN 14.6 11.7-15.5 HEMATOCRIT 42.3 35.0-45.0 MCV 97.0 80.0-100.0 MCH 33.5 27.0-33.0 MCHC 34.5 32.0-36.0 RDW 12.5 11.0-15.0 PLATELET COUNT 236 140-400 MPV 9.6 7.5-12.5 DIFFERENTIAL, MANUAL 2018-03-31 ABSOLUTE NEUTROPHILS 3055 [id number] ABSOLUTE LYMPHOCYTES 2795 850-3900 ABSOLUTE MONOCYTES 455 200-950 ABSOLUTE EOSINOPHILS 195 15-500 ABSOLUTE BASOPHILS 0 0-200 NEUTROPHILS 47 LYMPHOCYTES 43 MONOCYTES 7 EOSINOPHILS 3 BASOPHILS 0 PLATELET ESTIMATION ADEQUATE ADEQUATE CBC MORPHOLOGY NORMAL COMMENT(S) PROCEDURES Procedure Date Ordered Result Body [facility], 2018 X-RAY EXAM CHEST 2 VIEWS March 31, 2018 VENIPUNCT, ROUTINE* March 31, 2018 INSTRUCTIONS MEDICATIONS ADMINISTERED No Known Medications MEDICAL (GENERAL) HISTORY Type Description Date Medical History Hypothyroidism Medical History High cholesterol Medical History Hypertension Medical History Brain seizure Medical History Asthma Medical History COPD Medical History Hep C -2004 Medical History CO x 2 last in 2009 Medical History PTSD (post-traumatic stress disorder) Medical History Colon Cancer 2016 Medical History diabites II Surgical History tonsillectomy 1985 Surgical History partial hysterectomy 2004 Surgical History appendectomy 2004 Hospitalization History Surgery(s) only Hospitalization History pneumonia x3 days Hospitalization History Heart cath with stint 05/15/2016 Hospitalization History Diverticulitis, N/V-[facility] 01/28/17
--- OUTSIDE RECORDS SUMMARY | 2019-01-26 07:55 | XMS REPORT ---
Author Author GERARDO KISER [facility] Address [address] [place] [address] Care Team Providers Care Carpenter Mate Name Role Phone MARGI GERARDO Unavailable PROBLEMS Type Condition ICD9-CM Code JIO55-WL Code Onset Dates Condition Status SNOMED Code Problem OAB (overactive bladder) N32.81 Active 306622951 Problem Epilepsy G40.909 Active 13450877 Problem Cervicalgia M54.2 Active 62474610 Problem Other chronic pain G89.29 Active 42475783 Problem Tobacco abuse Z72.0 Active 00663638 Problem Lumbago M54.5 Active 591745794 Problem Hepatitis C B19.20 Active 81850751 Problem COPD (chronic obstructive pulmonary disease) J44.9 Active 49283497 Problem Diabetes E11.9 Active 65042539 Problem Bipolar I disorder with duy F31.10 Active 35505804 Problem Type 2 diabetes mellitus without complications E11.9 Active 676449280 Problem Stress incontinence of urine N39.3 Active 95857099 Problem Bilateral claudication of lower limb I73.9 Active 716151062 Problem Seasonal allergic rhinitis due to other allergic trigger J30.89 Active 055271783 Problem Hyperlipidemia, unspecified hyperlipidemia type E78.5 Active 30996128 Problem Hypertension, unspecified type I10 Active 39376409 Problem Chronic tension-type headache, not intractable G44.229 Active 947927217 Problem 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 mellitus without complication, without long -term current use of insulin E11.9 Active 338564103 Problem Type 2 diabetes mellitus with hyperglycemia E11.65 Active 577565353 Problem Chronic post-traumatic stress disorder (PTSD) F43.12 Active 491189144 Problem History of hypothyroidism Z86.39 Active 233064752 Problem Hypoglycemia E16.2 Active 384681176 Problem El's esophageal ulceration K22.10 Active 424378739 Problem Bipolar affective disorder, currently depressed, mild F31.31 Active 235668587 Problem Irritable bowel syndrome with diarrhea K58.0 Active 268437985 Problem Stress incontinence N39.3 Active 46154341 Problem History of hypertension Z86.79 Active 970910187 Problem Uncontrolled type 2 diabetes mellitus without complication, without long-term current use of insulin E11.65 Active 576648291 Problem Panic disorder with agoraphobia F40.01 Active 84832435 Problem Type 2 diabetes mellitus with hyperglycemia E11.65 Active 922317917 Problem History of seizures Z87.898 Active 860034995 Problem MCFP current use of insulin Z79.4 Active 012419121 Problem History of CA (myocardial infarction) I25.2 Active 974885631 Problem Mood disorder F39 Active 68054090 Problem Bipolar 2 disorder F31.81 Active 93155732 Problem Gastritis and duodenitis K29.90 Active 521614594 Problem History of high cholesterol Z86.39 Active 301496908 Problem Bipolar I disorder with mood-congruent psychotic features F31.9 Active 046953813 Problem Hypertension, benign I10 Active 86482116 Problem Primary insomnia F51.01 Active 8177312 ALLERGIES No Information ENCOUNTERS Encounter Location Date Diagnosis [place] [address] [address] 11 Jul, 2018 [facility] [address] [address] 17 Jun, 2018 [facility] [address] [address]- [address] 16 Jun, 2018 [facility] [address] 39[address]- 47[address] 14 Jun, 2018 Bipolar affective disorder, currently depressed, mild F31.31 ; Chronic post-traumatic stress disorder (PTSD) F43.12 and Panic disorder with agoraphobia F40.01 [facility] [address] [address]- [address] 14 Jun, 2018 [facility] [address] [address]- [address] 13 Jun, 2018 [facility] [address] 265[address]- 34[address] 09 Jun, 2018 Type 2 diabetes mellitus with hyperglycemia E11.65 [facility] [address] [facility] [id number] [place] [address] Jun, Uncontrolled type 2 diabetes mellitus with hyperglycemia E11.65 [facility] [address] [facility] [id number] [place] [address] 2546 Jun, [facility] [address] [facility] [id number] [place] [address] 1341 May, Lumbago M54.5 [facility] [address] [facility] [id number] [place] [id number] May, [facility] [address] [facility] [id number] [place] [address] May, [facility] [address] [facility] [id number] [address] May, [facility] [address] [address] May, [facility] [address] [facility] [id number] [address] May, [facility] [address] [place] [id number] [place] [address]447 May, [facility] [address] [place] [id number] [address] May, [facility] [address] [id number] [address] May, Lumbago M54.5 [facility] [address] [facility] [id number], [place] [address] May, [facility] [address] [id number] [address] [address], [address] of the chest R93.8 [facility] [address] [id number] [address] 57[address] Apr, Bipolar 2 disorder F31.81 ; Chronic post-traumatic stress disorder (PTSD) F43.12 and Panic disorder with agoraphobia F40.01 [place] [address] [place] [id number] [place] [address] 76510- 8197 20 Apr, [address] of the chest R93.8 [place] [address] [place] [id number] [place] [address] 94320- 6962 20 Apr, [address] of the chest R93.8 [place] [address] 269[address]- 2965 14 Apr, 2018 [place] [address] [place] [id number] [place] [address] 44423- 2274 Apr, Type 2 diabetes mellitus with hyperglycemia E11.65 [place] [address] [place] [id number] [place] [address] 52966- 4610 Apr, 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 mellitus without complication, without long-term current use of insulin E11.9 ; Watery eyes H04.203 ; Low back pain M54.5 ; Other chronic pain G89.29 ; Chronic tension-type headache, not intractable G44.229 ; Uncontrolled type 2 diabetes mellitus without complication , without long-term current use of insulin E11.65 and Bronchitis J40 [place] [address] [place] [id number] [place] [address] 80503- 3477 Apr, [place] [address] [place] [id number] [place] [address] 96143- 8245 Apr, Lumbago M54.5 [place] [address] [place] [id number] [place] [address] 67170- 6527 March, [facility] [address] [place] [id number] [place] [address] 08274 -8470 March, Cough R05 ; Pneumonia due to infectious organism, unspecified laterality, unspecified part of lung J18.9 and Non-intractable vomiting with nausea, unspecified vomiting type R11.2 [place] [address] [place] [id number] [place] [address] 25811- 2075 March, Bronchitis J40 [place] [address] [id number] [address] March, [facility] [address] [place] [id number] [place] [address] 89250- 5121 March, El's esophageal ulceration K22.10 and Type 2 diabetes mellitus with hyperglycemia E11.65 [facility] [address] [place] [id number] [place] [address] 42368- 9505 March, Panic disorder with agoraphobia F40.01 ; Chronic post- traumatic stress disorder (PTSD) F43.12 and Bipolar [address] [facility] [address] [place] [id number] [place] [address] 42168- 1892 March, Type 2 diabetes mellitus with hyperglycemia E11.65 [facility] [address] [place] [id number] [place] [address] 86103- 6623 March, [facility] [address] [place] [id number] [place] [address] 40909- 1906 March, Lumbago M54.5 [facility] [address] [place] [id number] [place] [address] 78537- 8688 March, [facility] [address] [place] [id number] [place] [address] 36344- 9807 March, Irritable bowel syndrome with diarrhea K58.0 ; Primary insomnia F51.01 ; Type 2 diabetes mellitus with hyperglycemia E11.65 and MCFP current use of insulin Z79.4 [facility] [id number] [place] [address] 48108- 8711 March, [facility] [address]65[address] [address] Jan, [facility] [address] [place] [id number] [place] [address] 83286- 2146 Jan, [facility] [address] [address] 4[address] Jan, [facility] [address] [place] [id number] [place] [address] 39715- 4032 Jan, [place] [address] [place] [id number] [place] [address] 44182- 1212 Jan, Dizziness R42 [place] [address] [place] [id number] [place] [address] 867082- 2466 Jan, Bipolar affective disorder, currently depressed, mild F31.31 ; Panic disorder with agoraphobia F40.01 and Chronic post-traumatic stress disorder (PTSD) F43.12 [place] [address] [place] [id number] [place] [address] 08872- 5099 Jan, Dizziness R42 [place] [address] 25497- 5326 Jan, Chest pain, unspecified type R07.9 ; Exertional dyspnea R06.09 ; Hypertension, unspecified type I10 and Hyperlipidemia, unspecified hyperlipidemia type E78.5 [place] [address] [place] [id number] [place] [address] 63707- 4498 Jan, [place] [address] [place] [id number] [place] [address] 00824- 7899 Jan, Lumbago M54.5 [place] [address] [place] [id number] [place] [address] 94278- 3837 Jan, El's esophageal ulceration K22.10 ; Blister (nonthermal ) of oral cavity, initial encounter S00.522A ; Local infection of the skin and subcutaneous tissue, unspecified L08.9 ; Type 2 diabetes mellitus with hyperglycemia E11.65 ; terminal makeup 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 and Stress incontinence N39.3 [place] [address] [place] [id number] [place] [address] 73726- 5034 Dec, [place] [address] 94462- 0443 Dec, [place] [address] [place] [id number] [place] [address] 53664- 5438 Dec, [place] [address] [id number] 16 Dec, [address]20 [facility] [address] [place] [id number] [place] [address] 09171- 0023 15 Dec, 2017 Acute pain of right knee M25.561 [facility] [address] [place] [id number] [place] [address] 99223- 1222 14 Dec, 2017 [facility] [address] [place] [id number] [place] [address] 04356- 2278 14 Dec, 2017 [facility] [address] [place] [id number] [place] [address] 83203- 1816 14 Dec, 2017 Lumbago M54.5 ; Acute pain of right knee M25.561 and Seasonal allergic rhinitis due to other allergic trigger J30.89 [facility] [address] [place] [id number] [place] [address] 42604- 8693 Dec, Type 2 diabetes mellitus with hyperglycemia E11.65 [place] [address] [place] [id number] [place] [address] 46148- 5390 08 Dec, 2017 [facility] [address] [place] [id number] [place] [address] 96969- 2344 Dec, [facility] [address] [place] [id number] [place] [address] 87749- 7247 23 Dec, 2017 [facility] [address] [place] [id number] [place] [address] 98011- 2620 Dec, [facility] [address] [place] [address] 35687- 9819 15 Dec, 2017 Chronic post-traumatic stress disorder (PTSD) F43.12 and Panic disorder with agoraphobia F40.01 [facility] [address] [place] [address] 37680- 7197 13 Dec, 2017 Low back pain M54.5 [facility] [address] [place] [address] 73659- 7658 12 Dec, 2017 Type 2 diabetes mellitus with hyperglycemia E11.65 ; terminal makeup 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 ; Low back pain M54.5 ; Other chronic pain G89.29 and Encounter for therapeutic drug level monitoring Z51.81 [facility] [address] [place] [id number] [place] [address] 03963- 9026 09 Dec, [address] [facility] [address] [place] [id number] [place] [address] 71966- 8635 09 Dec, 2017 [facility] [address] [place] [id number] [place] [address] [id number] 07 Dec, 2017 Dental examination Z01.20 [place] [address] 53732- 2989 Nov, Type 2 diabetes mellitus without complications E11.9 and Encounter for therapeutic drug level monitoring Z51.81 [place] [address] [place] [id number] [place] [address] 36045- 6676 Nov, [place] [address] [place] [id number] [place] [address] 96690- 5151 Oct, Type 2 diabetes mellitus without complications E11.9 [place] [address] [place] [id number] [place] [address] 27370- 8653 Oct, Type 2 diabetes mellitus with hyperglycemia E11.65 [place] [address] [place] [id number] [place] [address] 70920- 3143 Aug, Type 2 diabetes mellitus without complications E11.9 [place] [address] [place] [id number] [place] [address] 69110- 7005 Aug, Type 2 diabetes mellitus without complications E11.9 ; Hypoglycemia E16.2 ; Lumbago M54.5 ; Stress incontinence of urine N39.3 and History of CA (myocardial infarction) I25.2 [facility] [address] [place] [id number] [place] [address] 83514- 1748 Jun, [facility] [address] [place] [id number] [place] [address] 84959- 2079 May, [facility] [address], [place] [address]- 8486 Apr, Panic disorder with agoraphobia F40.01 [facility] [address] [place] [id number], [place] [address]- 1535 Apr, Panic disorder with agoraphobia F40.01 [facility] [address], [place] [address]- 5692 Apr, [facility] [address] [place] [id number] [place] [address] 87699- 9182 March, Other chronic pain G89.29 [facility] [address] [place] [id number] [place] [address] 66630- 5588 March, [facility] [address] [place] [id number] [place] [address] 03484- 5302 March, [facility] [address] [place] [id number] [place] [address] 03757- 2035 March, [facility] [address], [place] [address]- 7238 March, [facility] [address] [place] [id number] [place] [address] 28368- 4889 March, Type 2 diabetes mellitus without complications E11.9 [facility] [address], [place] [address]- 4167 March, Diarrhea, unspecified type R19.7 [facility] [address], [place] [address]- 5016 March, Bipolar 2 disorder F31.81 ; Chronic post-traumatic stress disorder (PTSD) F43.12 and Type 2 diabetes mellitus with hyperglycemia E11.65 [facility] [address] [address] 9241 March, [facility] [address], [place] [address]- 3227 March, [facility] [address], [place] [address]- 2620 March, Hypertension, benign I10 ; Type 2 diabetes mellitus with hyperglycemia E11.65 ; Hepatitis C B19.20 ; Gastritis and duodenitis K29.90 and Dysuria R30.0 [place] [address] [place] [id number] [place] [address] 30882- 9529 March, Hypertension, benign I10 ; Type 2 diabetes mellitus with hyperglycemia E11.65 ; Hepatitis C B19.20 ; Gastritis and duodenitis K29.90 and Dysuria R30.0 [place] [address] [place] [id number] [place] [address] 42142- 7819 March, Panic disorder with agoraphobia F40.01 ; Chronic post- traumatic stress disorder (PTSD) F43.12 ; Epilepsy G40.909 and Bipolar I disorder with mood-congruent psychotic features F31.9 [place] [address] [place] [id number] [place] [address] 97865- 8408 March, [place] [address] [place] [id number] [place] [address] 26838- 4113 March, Type 2 diabetes mellitus with hyperglycemia E11.65 [place] [address] [place] [id number] [place] [address] 39038- 4817 18 Jan, 2017 Bipolar I disorder with duy F31.10 [place] [address] [place] [id number] [place] [address] 47075- 3463 Jan, Bipolar 2 disorder F31.81 ; Chronic post-traumatic stress disorder (PTSD) F43.12 and Type 2 diabetes mellitus with hyperglycemia E11.65 [place] [address] [place] [id number] [place] [address] 12723- 7000 Jan, [place] [address] [place] [id number] [place] [address] 55263- 8268 Jan, [place] [address] [place] [id number] [place] [address] 34884- 9033 Jan, Panic disorder with agoraphobia F40.01 [place] [address], [place] [address]- 0219 13 Jan, 2017 Panic disorder with agoraphobia F40.01 ; Bipolar I disorder with mood-congruent psychotic features F31.9 ; Chronic post-traumatic stress disorder (PTSD) F43.[address] [facility] [address] [place] [id number] [place] [address] 51277- 6204 12 Jan, 2017 [facility] [address] [place] [id number] [place] [address] 46302- 2172 Jan, [facility] [address] [place] [id number] [place] [address] 48729- 4825 10 Jan, 2017 Type 2 diabetes mellitus without complications E11.9 and Hypoglycemia E16.2 [place] [address] [place] [id number] [place] [address] 51785- 2010 07 Jan, 2017 Type 2 diabetes mellitus without complications E11.9 ; Primary insomnia F51.01 and Hypertension, benign I10 [facility] [address] [place] [id number] [place] [address] 45648- 4152 06 Jan, 2017 [facility] [address] [id number] 05 Jan, 2017 [facility] [address] [place] [id number] [place] [address] 63504- 8660 31 Dec, 2016 Type 2 diabetes mellitus with hyperglycemia E11.65 [facility] [address] [place] [id number] [place] [address] 64570- 3902 Dec, [facility] [address] [place] [id number] [place] [address] 67947- 9267 Dec, Bipolar 2 disorder F31.81 ; Panic disorder with agoraphobia F40.01 ; Chronic post-traumatic stress disorder (PTSD) F43.[address] [facility] [address] [place] [id number] [place] [address] 21961- 9322 Dec, [facility] [address] [place] [id number] [place] [address] 16626- 6740 Dec, [facility] [address] [place] [id number] [place] [address] 04287- 1765 Dec, Bipolar 2 disorder F31.81 ; Panic disorder with agoraphobia F40.01 ; Chronic post-traumatic stress disorder (PTSD) F43.[address] [facility] [address] [place] [id number] [place] [address] 03189- 1729 Dec, [facility] [address] [place] [id number] [place] [address] 83795- 0761 Dec, [facility] [address] [place] [id number] [place] [address] 01340- 8444 Dec, [facility] [address] [place] [id number] [place] [address] 26412- 7921 Dec, Type 2 diabetes mellitus with hyperglycemia E11.65 ; MCFP current use of insulin Z79.4 and Lumbago M54.5 [place] [address] [place] [id number] [place] [address] 88310- 0398 Dec, [facility] [address] [place] [id number] [place] [address] 83478- 4636 Dec, [facility] [address] [place] [id number] [place] [address] 87781- 7634 Dec, [facility] [address] [place] [id number] [place] [address] 72072 -2852 Dec, Pain of left leg M79.605 and Pain in right leg M79.604 [facility] [address] [place] [id number] [place] [address] 29359- 1716 Dec, [facility] [address] [place] [id number] [place] [address] 59526- 4130 Dec, Type 2 diabetes mellitus with hyperglycemia E11.65 [facility] [id number] [place] [address] [phone] 3886 Dec, [place] [id number] [place] [address] [phone]- [phone] Dec, Type 2 diabetes mellitus with hyperglycemia E11.65 ; [facility] current use of insulin Z79.4 ; Vagina, candidiasis B37.3 and Other chronic pain G89.29 [place] [id number] [place] [address] [phone] Nov, Panic disorder with agoraphobia F40.01 [place] [address] 8[address]- [address]559 Nov, [place] [address] 70120- 6736 Nov, [place] [address] 60139- 5702 Nov, Hypoglycemia E16.2 [place] [address] 74342- 3916 Nov, [place] [address] 78641- 8421 Nov, [place] [address] 85809- 7761 Nov, [place] [id number] [place] [address] 74120- 2724 Nov, Type 2 diabetes mellitus with hyperglycemia E11.65 and terminal makeup 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 [place] [id number] [place] [address] 85705- 7788 Nov, Panic disorder with agoraphobia F40.01 ; Bipolar 2 disorder F31.81 ; Chronic post-traumatic stress disorder (PTSD) F43.12 and Epilepsy G40.909 [place] [id number] [place] [address] 41427- [phone] Nov, Panic disorder with agoraphobia F40.01 [place] [id number] [place] [address] 24677- 6320 Oct, [facility] [id number] [place] [address] 44971- 5390 Oct, [facility] [id number] [place] [address] 55905- 1837 Oct, Bipolar 2 disorder F31.81 ; Panic disorder with agoraphobia F40.01 [address] Mood disorder F39 [facility] [id number] [place] [address] 11632- 9814 Oct, Diabetes E11.9 ; Type 2 diabetes mellitus with hyperglycemia E11.65 and terminal makeup 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 [facility] [id number] [place] [address] 93985- 8425 Oct, [facility] [id number] [place] [address] 42994- 2589 Sep, [facility] [id number] [place] [address] 89473- 2884 Sep, Bipolar 2 disorder F31.81 [address] Mood disorder F39 [facility] [id number] [place] [address] 46280- 7250 Sep, [facility] [id number] [place] [address] 05676- 8063 Sep, Uncontrolled type 2 diabetes mellitus without complication, without long-term current use of insulin E11.65 [facility] [id number] [place] [address] 08425- 3673 Sep, [facility] [id number] [place] [address] 80968- 0186 Sep, [facility] [id number] [place] [address] 93810- 4724 Sep, [facility] [id number] [place] [address] 66112- 9802 Sep, [facility] [id number] [place] [address] 35561- 0801 Sep, Bipolar 2 disorder F31.81 ; Chronic post-traumatic stress disorder (PTSD) F43.12 ; Panic disorder with agoraphobia F40.[address] [facility] [id number] [place] [address] 29795- 3493 Sep, Bipolar 2 disorder F31.81 ; PTSD (post-traumatic stress disorder) F43.10 and Panic disorder with agoraphobia F40.01 [facility] [address] 65707- 2288 Sep, [facility] [address] 91406- 0266 28 Aug, 2016 History of seizures Z87.898 ; Panic disorder with agoraphobia F40.01 and Bipolar [address] [facility] [address] 76230- 7575 Aug, [facility] [address] 91322- 1536 17 Aug, 2016 [facility] [address] 25119- 0903 Aug, [facility] [address] 21959- 2891 Aug, [facility] [id number] [place] [address] 13168- 3981 Aug, [facility] [address] 95929- 6914 Aug, [facility] [address] 18187- 6018 Aug, Hypoglycemia E16.2 and Bilateral impacted cerumen H61.23 [facility] [address] 03222- 6572 Aug, [facility] [address] 50997- 2528 Jul, [facility] [id number] [place] [address] 15889- 0693 Jul, [facility] [id number] [place] [address] 50192- 0445 Jul, Bipolar 2 disorder F31.81 ; Panic disorder with agoraphobia F40.01 ; PTSD (post-traumatic stress disorder) F43.[address] [facility] [id number] [place] [address] 77309- 7796 Jul, [facility] [id number] [place] [address] 74722- 5706 Jul, Type 2 diabetes mellitus without complications E11.[address] [facility] [id number] [place] [address] 96754- 2302 Jul, [facility] [id number] [place] [address] 18533- 6902 Jun, [facility] [id number] [place] [address] 76906- 2003 Jun, Bipolar 2 disorder F31.81 ; PTSD (post-traumatic stress disorder) F43.10 and Panic disorder with agoraphobia F40.01 [facility] [id number] [place] [address] 88809- 0246 Jun, [facility] [id number] [place] [address] 98431- 6947 Jun, [facility] [id number] [place] [address] 90420- 5474 Jun, [facility] [id number] [place] [address] 63366- 4162 Jun, Type 2 diabetes mellitus without complications E11.9 and COPD (chronic obstructive pulmonary disease) J44.9 [facility] [id number] [id number] May, Dental examination Z01.20 and Dental caries K02.9 [place] [id number] [place] [address] 82227- 3264 May, Bipolar 2 disorder F31.81 ; PTSD (post-traumatic stress disorder) F43.10 and Panic disorder with agoraphobia F40.01 [place] [id number] [place] [address] 19731- 9762 May, Lumbago with sciatica, right side M54.41 ; Other chronic pain G89.29 and Uncontrolled type 2 diabetes mellitus without complication, without long-term current use of insulin E11.65 [place] [address] 03317- 5618 May, Chronic bronchitis, unspecified chronic bronchitis type J42 [place] [id number] [place] [address] 18127- 9448 May, [place] [address] 65530- 8350 May, [place] [id number] [place] [address] 61846- 3541 May, Chest pain, unspecified type R07.9 ; Tobacco use Z72.0 ; Type 2 diabetes mellitus without complications E11.9 ; Essential hypertension I10 ; Hyperlipidemia, unspecified hyperlipidemia type E78.5 ; Obesity (BMI 30- 39.9) E66.9 ; History of hypothyroidism Z86.39 ; Chronic obstructive pulmonary disease, unspecified COPD type J44.9 ; Anxiety F41.9 ; Bilateral claudication of lower limb I73.9 and Bipolar 2 disorder F31.81 [place] [id number] [place] [address] 02932- 2614 May, Bipolar 2 disorder F31.81 ; Panic disorder with agoraphobia F40.01 and Tobacco abuse Z72.0 [place] [id number] [place] [address] 59928- 0043 Apr, [place] [address] 35274- 1454 Apr, [facility] [id number] [place] [address] 82874- 5893 Apr, [place] [address] 45406- 8101 Apr, Bipolar 2 disorder F31.81 ; Panic disorder with agoraphobia F40.01 and PTSD (post-traumatic stress disorder) F43.10 [place] [id number] [place] [address] 41961- 9341 Apr, Chronic bronchitis, unspecified chronic bronchitis type J42 ; Cervical neuritis M54.12 and Thoracic neuritis M54.14 [place] [address] 82426- 5037 Apr, [place] [id number] [place] [address] 94071- 0204 Apr, Cervicalgia M54.2 [place] [address] 72131- 5487 Apr, Bipolar 2 disorder F31.81 ; Panic disorder with agoraphobia F40.01 and PTSD (post-traumatic stress disorder) F43.10 [facility] [id number] [place] [address] 24460 -1925 Apr, [facility] [id number] [place] [address] 11418 -4979 Apr, Cough R05 and Tobacco dependence F17.200 [facility] [id number] [place] [address] 58969- 3522 Apr, [place] [id number] [place] [address] 85355- 5077 Apr, [place] [id number] [place] [address] 87266- 8766 March, Bipolar 2 disorder F31.81 ; Panic disorder with agoraphobia F40.01 and Generalized anxiety disorder F41.1 [place] [address] [place] [address] 9616 March, Closed displaced fracture of fifth metatarsal bone of right foot with routine healing, subsequent encounter S92.351D [place] [id number] [place] [address] 17693- 7750 March, Bronchitis J40 [place] [id number] [place] [address] 00353- 0621 March, [place] [id number] [place] [address] 76318- 7397 March, [place] [id number] [place] [address] 01800- 8442 March, Foot pain, right M79.671 ; Cervicalgia M54.2 and 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 mellitus without complication, unspecified mcfp insulin use status E11.9 [place] [id number] [place] [address] 52951- 1690 March, Fracture of fifth metatarsal bone of right foot S92.351A [place] [id number] [place] [address] 97427- 1112 March, [place] [id number] [place] [address] 20652- 4851 Jan, Fracture of fifth metatarsal bone of right foot S92.351A [place] [id number] [place] [address] 74496- 0387 Jan, Bipolar 2 disorder F31.81 ; PTSD (post-traumatic stress disorder) F43.10 ; Panic disorder with agoraphobia F40.01 and Epilepsy G40.909 [place] [id number] [place] [address] 90998- 1851 Jan, History of CA (myocardial infarction) I25.2 and History of high cholesterol Z86.39 [place] [id number] [place] [address] 25459- 0406 Jan, Bipolar 2 disorder F31.81 ; Panic disorder with agoraphobia F40.01 ; Tobacco abuse Z72.0 and PTSD (post-traumatic stress disorder) F43.10 [place] [id number] [place] [address] 94257- 6887 Jan, Fracture of fifth metatarsal bone of right foot S92.351A [place] [address] 69149- 0352 Jan, [place] [address] 26530- 6862 Jan, History of high cholesterol Z86.39 [place] [address] 976804- 1118 Jan, History of CA (myocardial infarction) I25.2 [place] [address] 11995- 5787 Jan, [place] [address] 16622- 7323 31 Jan, 2016 Back pain M54.9 ; Diabetes E11.9 ; Right knee pain M25.561 and Chest pain R07.9 [place] [address] 80329- 4631 Dec, [place] [id number] [place] [address] 56115- 1681 24 Jan, 2016 [place] [address] 78087- 4141 Dec, Cervicalgia M54.2 [place] [address] 54343- 6532 17 Jan, 2016 Bipolar 2 disorder F31.81 ; PTSD (post-traumatic stress disorder) F43.10 ; Panic disorder with agoraphobia F40.01 and Epilepsy G40.909 [place] [id number] [place] [address] 92135- 3361 08 Jan, 2016 Bipolar 2 disorder F31.81 ; PTSD (post-traumatic stress disorder) F43.10 and Panic disorder with agoraphobia F40.01 [facility] [id number] [place] [address] 72568- 5423 Dec, Diabetes E11.9 [facility] [id number] [place] [address] 46331- 2417 Dec, [facility] [id number] [place] [address] 87429- 7377 Dec, Other chronic pain G89.29 ; Hepatitis C B19.20 and History of seizures Z87.898 [facility] [id number] [place] [address] 21712- 3522 24 Dec, 2015 [facility] [id number] [place] [address] 07464- 7440 Dec, Bipolar 2 disorder F31.81 and Other chronic pain G89.29 [facility] [id number] [place] [address] 39435- 6135 Dec, Cervicalgia M54.[address] [facility] [id number] [place] [address] 79871- 6133 Dec, [facility] [id number] [place] [address] 25236- 6294 Dec, [facility] [id number] [place] [address] 41409- 1802 Dec, [facility] [id number] [place] [address] 77534- 1577 16 Dec, 2015 [facility] [id number] [place] [address] 56851- 6985 Dec, Type 2 diabetes mellitus without complications E11.9 [facility] [id number] [place] [address] 15144- 5788 10 [address], 2015 [facility] [id number] [place] [address] 65220- 6651 09 Dec, 2015 History of seizures Z87.898 and Hepatitis C B19.20 [place] [id number] [place] [address] 74511- 1122 Dec, Hepatitis C B19.20 [place] [address] 79312- 1654 Dec, [place] [address] 38501- 5434 Dec, Cervicalgia M54.2 ; COPD (chronic obstructive pulmonary disease) J44.9 and Hepatitis C B19.20 [place] [address] 75132- 8151 Dec, Bipolar 2 disorder F31.81 ; History of hypertension Z86.79 ; History of anxiety Z86.59 ; Panic disorder with agoraphobia F40.01 and Epilepsy G40.909 [place] [address] 19524- 2963 Nov, [place] [address] 29126- 9360 Nov, [address] 63086- 6654 Nov, History of seizures Z87.898 ; OAB (overactive bladder) N32.81 ; Lumbago M54.5 ; Other chronic pain G89.29 ; Cervicalgia M54.2 ; Tobacco abuse Z72.0 ; Tobacco abuse counseling Z71.6 and Impaired fasting glucose R73.01 [place] [id number] [place] [address] 87865- 4218 Nov, Bipolar 2 disorder F31.81 ; PTSD (post-traumatic stress disorder) F43.10 ; History of anxiety Z86.59 ; History of COPD Z87.09 ; Panic disorder with agoraphobia F40.01 and Moderate depressed bipolar I disorder F31.[address] 32242- 3282 Nov, PTSD (post-traumatic stress disorder) F43.10 [facility] [id number] [id number] 11 Nov, 2015 Dental examination Z01.20 and Dental caries K02.9 [facility] [id number] [place] [address] 40416- 7202 08 Nov, 2015 History of hypertension Z86.79 ; History of hypothyroidism Z86.39 ; History of high cholesterol Z86.39 ; History of COPD Z87.09 and Overactive bladder N32.81 [facility] [id number] [place] [address] 42520- 5081 Nov, Bipolar 2 disorder F31.81 and PTSD (post-traumatic stress disorder) F43.10 [facility] [id number] [place] [address] 28517- 0003 Nov, PTSD (post-traumatic stress disorder) F43.10 ; Panic disorder with agoraphobia F40.01 ; Epilepsy G40.909 and Moderate depressed bipolar I disorder F31.32 [facility] [id number] [place] [address] 63975- 6083 Nov, [facility] [id number] [place] [address] 31286- 0659 Nov, [facility] [id number] [place] [address] 95056- 0604 Oct, [place] [id number] [place] [address] 58646- 3708 Oct, Generalized anxiety disorder F41.1 ; Major depression, recurrent F33.9 and PTSD (post-traumatic stress disorder) F43.10 [place] [id number] [place] [address] 66594- 3415 Oct, Elevated fasting glucose R73.01 [place] [id number] [place] [address] 54874- 0571 Oct, Elevated fasting glucose R73.01 [place] [address], [place] [address]- 6296 17 Oct, 2015 History of COPD Z87.09 [place] [id number] [place] [address] 82587- 6461 15 Oct, 2015 General medical exam Z00.00 ; History of hypertension Z86.79 ; History of hypothyroidism Z86.39 ; History of hepatitis Z86.19 ; History of high cholesterol Z86.39 and History of seizures Z87.898 [place] [id number] [place] [address] 81431- 8821 10 Oct, 2015 General medical exam Z00.00 ; History of hypertension Z86.79 ; History of hypothyroidism Z86.39 ; Bipolar 2 disorder F31.81 ; PTSD ( post-traumatic stress disorder) F43.10 ; History of hepatitis Z86.19 ; History of high cholesterol Z86.39 ; History of anxiety Z86.59 ; History of seizures Z87.898 ; History of CA (myocardial infarction) I25.2 and History of COPD Z87.09 [place] [id number] [place] [address] 88362- 8382 Oct, Generalized anxiety disorder F41.1 ; Depression F32.9 and PTSD (post-traumatic stress disorder) F43.10 [place] [address] [address]- 9965 Jan, [place] [address] [address]- 8418 Jan, [place] [address] [address]- 9749 Jun, [facility] [address] [place] [id number] Jun, [place] [id number] [place] [address] 55700- 2726 May, [place] [address] [address]- 1736 May, [facility] [address] [place] [id number] May, [facility] [address] [facility] [id number] [place] [address]- 7520 May, [facility] [address] [place] [id number] May, [facility] [address] [facility] [id number] [place] [address]- 2774 May, IMMUNIZATIONS No Known Immunizations SOCIAL HISTORY [...]
--- OUTSIDE RECORDS SUMMARY | 2019-01-26 07:56 | XMS REPORT ---
Author Author FRANK LUNA Organization [facility] Address [address] [place] [address] Care Team Providers Care Tooling Mechanic Name Role Phone FRANK LUNA Unavailable PROBLEMS Type Condition ICD9-CM Code [id number] Code Onset Dates Condition Status SNOMED Code Problem OAB (overactive bladder) N32.81 Active 241344599 Problem Epilepsy G40.909 Active 92471359 Problem Cervicalgia M54.2 Active 00504562 Problem Other chronic pain G89.29 Active 55980929 Problem Tobacco abuse Z72.0 Active 25680145 Problem Lumbago M54.5 Active 749061139 Problem Hepatitis C B19.20 Active 48784803 Problem COPD (chronic obstructive pulmonary disease) J44.9 Active 08507489 Problem Diabetes E11.9 Active 97078262 Problem Bipolar I disorder with duy F31.10 Active 70003176 Problem Type 2 diabetes mellitus without complications E11.9 Active 047093544 Problem Stress incontinence of urine N39.3 Active 90116150 Problem Bilateral claudication of lower limb I73.9 Active 529428045 Problem Seasonal allergic rhinitis due to other allergic trigger J30.89 Active 441008671 Problem Hyperlipidemia, unspecified hyperlipidemia type E78.5 Active 77404076 Problem Hypertension, unspecified type I10 Active 31995369 Problem Chronic tension-type headache, not intractable G44.229 Active 172400002 Problem 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 mellitus without complication, without long -term current use of insulin E11.9 Active 198913432 Problem Type 2 diabetes mellitus with hyperglycemia E11.65 Active 194503692 Problem Chronic post-traumatic stress disorder (PTSD) F43.12 Active 485285195 Problem History of hypothyroidism Z86.39 Active 093347061 Problem Hypoglycemia E16.2 Active 045843338 Problem El's esophageal ulceration K22.10 Active 901303241 Problem Bipolar affective disorder, currently depressed, mild F31.31 Active 718913653 Problem Irritable bowel syndrome with diarrhea K58.0 Active 331624326 Problem Stress incontinence N39.3 Active 25230569 Problem History of hypertension Z86.79 Active 288934335 Problem Uncontrolled type 2 diabetes mellitus without complication, without long-term current use of insulin E11.65 Active 851701210 Problem Panic disorder with agoraphobia F40.01 Active 00593070 Problem Type 2 diabetes mellitus with hyperglycemia E11.65 Active 610804210 Problem History of seizures Z87.898 Active 926302367 Problem detention current use of insulin Z79.4 Active 592430350 Problem History of OH (myocardial infarction) I25.2 Active 434578687 Problem Mood disorder F39 Active 69793628 Problem Bipolar 2 disorder F31.81 Active 26021485 Problem Gastritis and duodenitis K29.90 Active 578597054 Problem History of high cholesterol Z86.39 Active 586448018 Problem Bipolar I disorder with mood-congruent psychotic features F31.9 Active 011777549 Problem Hypertension, benign I10 Active 28905845 Problem Primary insomnia F51.01 Active 6245946 ALLERGIES Substance Reaction Event Type Date Status Penicillin V Potassium Unknown Drug Allergy March, Active Metformin HCl diarrhea Drug Allergy March, Active Macrobid stomach upset Drug Allergy March, Active Iodine anaphylaxis Drug Allergy March, Active Fentanyl halucinations/insomnia Drug Allergy March, Active ENCOUNTERS Encounter Location Date Diagnosis [place] [address] [address] 11 Jul, 2018 [place] [address] [place] [id number] [place] [address] 58371- 4349 17 Jun, 2018 [place] [address] 02413- 3790 16 Jun, 2018 [place] [address] 11448- 3539 14 Jun, 2018 Bipolar affective disorder, currently depressed, mild F31.31 ; Chronic post-traumatic stress disorder (PTSD) F43.12 and Panic disorder with agoraphobia F40.01 [place] [address] [place] [id number] [place] [address] 35171- 6849 14 Jun, 2018 [place] [address] [id number] [place] [address] 8502 Jun, [facility] [address] [facility] [id number] [place] [address] 5668 Jun, Type 2 diabetes mellitus with hyperglycemia E11.65 [facility] [address] [id number] [place] [address]- 5113 Jun, Uncontrolled type 2 diabetes mellitus with hyperglycemia E11.65 [facility] [address] [id number] [place] [address]- 9664 Jun, [facility] [address] [facility] [id number] [place] [address]- 9570 May, Lumbago M54.5 [facility] [place] [address] [id number] [place] [id number] May, [facility] [address] [facility] [id number] [place] [address]- 1570 May, [facility] [address] [facility] [id number] [place] [address]- 4362 May, [facility] [address] [facility] [id number] [place] [address]- 7775 May, [facility] [address] [facility] [id number] [place] [address]- 5513 May, [facility] [address] [facility] [id number] [place] [address]- 1647 May, [facility] [address] [facility] [id number] [place] [address]- 1723 May, [facility] [address] [facility] [id number] [place] [address]- 1308 May, Lumbago M54.5 [facility] [address] [facility] [id number] [place] [address]- 4796 May, [facility] [address] [facility] [id number] [place] [address]- [address], [address] of the chest R93.8 [facility] [address] [place] [address] 67975- 0808 Apr, Bipolar 2 disorder F31.81 ; Chronic post-traumatic stress disorder (PTSD) F43.12 and Panic disorder with agoraphobia F40.01 [place] [address] [place] [id number] [place] [address] 46535- [address] Apr, [address] of the chest R93.8 [place] [address] [place] [id number] [place] [address] 59151- [address] Apr, [address] of the chest R93.8 [place] [address] [place] [id number] [place] [address] 09189- 2721 Apr, [place] [address] [place] [id number] [place] [address] 38440- 6628 Apr, Type 2 diabetes mellitus with hyperglycemia E11.65 [place] [address] [place] [id number] [place] [address] 45113- 3184 Apr, 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 mellitus without complication, without long-term current use of insulin E11.9 ; Watery eyes H04.203 ; Low back pain M54.5 ; Other chronic pain G89.29 ; Chronic tension-type headache, not intractable G44.229 ; Uncontrolled type 2 diabetes mellitus without complication , without long-term current use of insulin E11.65 and Bronchitis J40 [place] [address] [place] [id number] [place] [address] 22068- 7652 Apr, [place] [address] [place] [id number] [place] [address] 09184- 6045 Apr, Lumbago M54.5 [place] [address] [place] [id number] [place] [address] 66370- 3439 March, [facility] [address] [place] [address] 12008 -6275 March, Cough R05 ; Pneumonia due to infectious organism, unspecified laterality, unspecified part of lung J18.9 and Non-intractable vomiting with nausea, unspecified vomiting type R11.2 [facility] [address] [place] [id number] [place] [address] 45275- 4379 March, Bronchitis J40 [facility] [address] [place] [id number] [place] [address] 87472- 9771 March, [place] [address] 07060- 4329 March, El's esophageal ulceration K22.10 and Type 2 diabetes mellitus with hyperglycemia E11.65 [place] [address] [place] [id number] [place] [address] 74881- 4979 March, Panic disorder with agoraphobia F40.01 ; Chronic post- traumatic stress disorder (PTSD) F43.12 and Bipolar 2 disorder F31.81 [place] [address] 24169- 1635 March, Type 2 diabetes mellitus with hyperglycemia E11.65 [place] [address] [place] [id number] [place] [address] 28542- 4021 March, [place] [address] 53061- 9631 March, Lumbago M54.5 [place] [address] [place] [id number] [place] [address] 06745- 9706 March, [place] [address] [place] [id number] [place] [address] 14955- 2537 March, Irritable bowel syndrome with diarrhea K58.0 ; Primary insomnia F51.01 ; Type 2 diabetes mellitus with hyperglycemia E11.65 and 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 [place] [address] [place] [id number] [place] [address] 49851- 1406 March, [place] [address] [place] [id number] [place] [address] 87240- 3769 Jan, [place] [address] [place] [id number]- 2546 Jan, [place] [address] [place] [id number] [place] [address] 80738- 6476 Jan, [place] [address] [place] [id number] [place] [address] Jan, [place] [address] 42024- 3085 Jan, Dizziness R42 [place] [address] 808076- 0090 Jan, Bipolar affective disorder, currently depressed, mild F31.31 ; Panic disorder with agoraphobia F40.01 and Chronic post-traumatic stress disorder (PTSD) F43.12 [place] [address] 24454- 9939 Jan, Dizziness R[address] 65323- 5983 Jan, Chest pain, unspecified type R07.9 ; Exertional dyspnea R06.09 ; Hypertension, unspecified type I10 and Hyperlipidemia, unspecified hyperlipidemia type E78.5 [place] [id number] [place] [address] 51319- 5019 Jan, [place] [address] [place] [id number] [place] [address] 35126- 5141 Jan, Lumbago M54.5 [place] [id number] [place] [address] 95991- 9751 Jan, El's esophageal ulceration K22.10 ; Blister (nonthermal ) of oral cavity, initial encounter S00.522A ; Local infection of the skin and subcutaneous tissue, unspecified L08.9 ; Type 2 diabetes mellitus with hyperglycemia E11.65 ; 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 and Stress incontinence N39.3 [place] [id number] [place] [address] 12977- 5070 Dec, [place] [address] [address] 2388 27 Dec, 2017 [facility] [address] [place] [address] 59808- 1916 19 Dec, 2017 [facility] [place] [facility] [address] [id number] 16 Dec, 2017 Dental examination Z01.20 [facility] [address] [place] [id number] [place] [address] 21009- 7941 15 Dec, 2017 Acute pain of right knee M25.561 [facility] [address] [place] [address] 51197- 6045 14 Dec, 2017 [facility] [address] [place] [id number] [place] [address] 03852- 3422 14 Dec, 2017 [facility] [address] [place] [address] 98698- 0985 14 Dec, 2017 Lumbago M54.5 ; Acute pain of right knee M25.561 and Seasonal allergic rhinitis due to other allergic trigger J30.89 [facility] [address] [address]- 5559 Dec, Type 2 diabetes mellitus with hyperglycemia E11.65 [facility] [address] [address]- 7907 08 Dec, 2017 [facility] [address] [place] [address] 32896- 6868 Dec, [facility] [address] [address]- 4110 Dec, [facility] [id number] [place] [address] 07401- 5910 Dec, [facility] [address], [place] [address]- 5075 15 Dec, 2017 Chronic post-traumatic stress disorder (PTSD) F43.12 and Panic disorder with agoraphobia F40.01 [facility] [address] [place] [id number] [place] [address] 61998- 2220 13 Dec, 2017 Low back pain M54.5 [facility] [address] [place] [id number] [place] [address] 16568- 2616 Dec, Type 2 diabetes mellitus with hyperglycemia E11.65 ; detention current use of insulin Z79.4 ; Low back pain M54.5 ; Encounter for therapeutic drug level monitoring Z51.81 and Other chronic pain G89.29 [facility] [address] [place] [id number] [place] [address] 01298- 8975 09 Dec, 2017 Coughing R05 [place] [address] [place] [id number] [place] [address] 57262- 7617 Dec, [facility] [place] [facility] [address] [place] [id number] [place] [address] [id number] 07 Dec, 2017 Dental examination Z01.20 [place] [address] [place] [id number] [place] [address] 19317- 0855 Nov, Type 2 diabetes mellitus without complications E11.9 and Encounter for therapeutic drug level monitoring Z51.81 [place] [address] [place] [id number] [place] [address] 80354- 0365 Nov, [place] [address] [place] [id number] [place] [address] 53604- 3289 Oct, Type 2 diabetes mellitus without complications E11.9 [place] [address] [place] [id number] [place] [address] 53107- 0889 Oct, Type 2 diabetes mellitus with hyperglycemia E11.65 [place] [address] [place] [address] 10758- 4340 Aug, Type 2 diabetes mellitus without complications E11.9 [place] [address] [place] [id number] [place] [address] 00018- 7245 Aug, Type 2 diabetes mellitus without complications E11.9 ; Hypoglycemia E16.2 ; Lumbago M54.5 ; Stress incontinence of urine N39.3 and History of OH (myocardial infarction) I25.2 [facility] [address] [address]- 8755 Jun, [facility] [address], [place] [address]- 2506 May, [facility] [address], [place] [address]- 1347 Apr, Panic disorder with agoraphobia F40.01 [facility] [address] [place] [id number] [address]- 9238 Apr, Panic disorder with agoraphobia F40.01 [facility] [address] [place] [address] 85351- 0002 Apr, [facility] [address], [place] [address]- 4951 March, Other chronic pain G89.29 [facility] [address] [place] [id number] [address]- 5791 March, [facility] [address], [place] [address]- 9119 March, [facility] [address], [place] [address]- 9925 March, [facility] [address], [place] [address]- 1687 March, [facility] [address], [place] [address]- 9329 March, Type 2 diabetes mellitus without complications E11.9 [facility] [address], [place] [address]- 9068 March, Diarrhea, unspecified type R19.7 [facility] [address], [place] [address]- 4929 March, Bipolar 2 disorder F31.81 ; Chronic post-traumatic stress disorder (PTSD) F43.12 and Type 2 diabetes mellitus with hyperglycemia E11.65 [facility] [address], [place] [address]- 0427 March, [facility] [address] [place] [id number] [place] [address] 53821- 2421 March, [facility] [address] [place] [id number] [place] [address] 63318- 0567 March, Hypertension, benign I10 ; Type 2 diabetes mellitus with hyperglycemia E11.65 ; Hepatitis C B19.20 ; Gastritis and duodenitis K29.90 and Dysuria R30.0 [place] [address] [place] [id number] [place] [address] 84567- 2823 March, Hypertension, benign I10 ; Type 2 diabetes mellitus with hyperglycemia E11.65 ; Hepatitis C B19.20 ; Gastritis and duodenitis K29.90 and Dysuria R30.0 [place] [address] [place] [id number] [place] [address] 55162- 1462 March, Panic disorder with agoraphobia F40.01 ; Chronic post- traumatic stress disorder (PTSD) F43.12 ; Epilepsy G40.909 and Bipolar I disorder with mood-congruent psychotic features F31.9 [place] [address] [place] [id number] [place] [address] 05265- 4182 March, [place] [address] [place] [address] 29084- 5341 March, Type 2 diabetes mellitus with hyperglycemia E11.65 [place] [address] [place] [id number] [place] [address] 86189- 8869 Jan, Bipolar I disorder with duy F31.10 [place] [address] [place] [id number] [place] [address] 79647- 9587 Jan, Bipolar 2 disorder F31.81 ; Chronic post-traumatic stress disorder (PTSD) F43.12 and Type 2 diabetes mellitus with hyperglycemia E11.65 [place] [address], [place] [address]- 4980 Jan, [place] [address] [place] [id number] [address]- 6069 17 Jan, 2017 [facility] [address] [place] [id number] [place] [address] 91912- 5903 14 Jan, 2017 Panic disorder with agoraphobia F40.01 [facility] [address] [place] [id number] [place] [address] 35130- 8438 13 Jan, 2017 Panic disorder with agoraphobia F40.01 ; Bipolar I disorder with mood-congruent psychotic features F31.9 ; Chronic post-traumatic stress disorder (PTSD) F43.12 and Epilepsy G40.909 [facility] [address] [place] [id number] [place] [address] 48969- 9973 Jan, [facility] [address] [place] [id number] [place] [address] 49383- 4654 11 Jan, 2017 [facility] [address] [place] [id number] [place] [address] 88851- 4826 10 Jan, 2017 Type 2 diabetes mellitus without complications E11.9 and Hypoglycemia E16.2 [facility] [address] [place] [id number] [place] [address] 21449- 9301 07 Jan, 2017 Type 2 diabetes mellitus without complications E11.9 ; Primary insomnia F51.01 and Hypertension, benign I10 [facility] [address] [place] [id number] [place] [address] 76779- 0546 06 Jan, 2017 [facility] [address] [place] [id number] [place] [address] [id number] Jan, [facility] [address] [place] [id number] [place] [address] 67659- 7864 Dec, Type 2 diabetes mellitus with hyperglycemia E11.65 [facility] [address] [place] [id number] [place] [address] 33300- 6557 Dec, [facility] [address] [place] [id number] [place] [address] 50106- 9832 Dec, Bipolar 2 disorder F31.81 ; Panic disorder with agoraphobia F40.01 ; Chronic post-traumatic stress disorder (PTSD) F43.12 and Epilepsy G40.909 [facility] [address] [place] [id number] [place] [address] 25748- 1136 Dec, [facility] [address] [place] [id number] [place] [address] 36848- 8871 Dec, [facility] [address] [place] [id number] [place] [address] 43374- 0105 Dec, Bipolar 2 disorder F31.81 ; Panic disorder with agoraphobia F40.01 ; Chronic post-traumatic stress disorder (PTSD) F43.12 and Epilepsy G40.909 [place] [address] [place] [id number] [place] [address] 81805- 7767 Dec, [facility] [address] [place] [id number] [place] [address] 99447- 2802 Dec, [place] [address] [place] [id number] [place] [address] 31463- 6851 Dec, [facility] [address] [place] [id number] [place] [address] 05883- 2818 Dec, Type 2 diabetes mellitus with hyperglycemia E11.65 ; detention current use of insulin Z79.4 and Lumbago M54.5 [place] [address] [place] [id number] [place] [address] 65463- 3532 Dec, [place] [address] [place] [id number] [place] [address] 16443- 1576 Dec, [facility] [address] [place] [id number] [place] [address] 13648- 1894 Dec, [facility] [address] [place] [id number] [place] [address] 02938 -5846 Dec, Pain of left leg M79.605 and Pain in right leg M79.604 [facility] [address] [place] [id number] [place] [address] 08486- 1238 Dec, [facility] [address] [place] [address]- 8512 08 Dec, 2016 Type 2 diabetes mellitus with hyperglycemia E11.65 [place] [address] [place] [id number] [place] [address] 20009- 7863 Dec, [place] [address] [place] [id number] [place] [address] 52501- 4062 Dec, Type 2 diabetes mellitus with hyperglycemia E11.65 ; detention current use of insulin Z79.4 ; Vagina, candidiasis B37.3 and Other chronic pain G89.29 [place] [address] [place] [id number] [place] [address] 39873- 3911 Nov, Panic disorder with agoraphobia F40.01 [place] [address] [place] [id number] [place] [address] 75442- 4641 Nov, [place] [address] [place] [id number] [place] [address] 59969- 4505 Nov, [place] [address] [place] [id number] [place] [address] 08757- 1231 Nov, Hypoglycemia E16.2 [place] [address] [place] [id number] [place] [address] 17158- 5622 Nov, [place] [address] [place] [id number] [place] [address] 50255- 0557 Nov, [place] [address] [place] [id number] [place] [address] 14884- 3405 Nov, [place] [address] [place] [id number] [place] [address] 67838- 9113 Nov, Type 2 diabetes mellitus with hyperglycemia E11.65 and detention current use of insulin Z79.4 [place] [address] [place] [id number] [place] [address] 54324- 2997 Nov, Panic disorder with agoraphobia F40.01 ; Bipolar 2 disorder F31.81 ; Chronic post-traumatic stress disorder (PTSD) F43.12 and Epilepsy G40.909 [place] [address], [place] [address]- 7076 Nov, Panic disorder with agoraphobia F40.01 [facility] [address] [place] [id number] [place] [address] 33579- 9999 16 Oct, 2016 [facility] [address] [place] [id number] [place] [address] 79129- 3091 Oct, [facility] [address] [place] [id number] [place] [address] 73688- 7318 Oct, Bipolar 2 disorder F31.81 ; Panic disorder with agoraphobia F40.01 and Mood disorder F39 [place] [address] [place] [id number] [place] [address] 35979- 0830 Oct, Diabetes E11.9 ; Type 2 diabetes mellitus with hyperglycemia E11.65 and 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 [place] [address] [place] [id number] [place] [address] 04717- 2574 Oct, [facility] [address] [place] [id number] [place] [address] 87796- 8840 Sep, [facility] [address] [id number] [place] [address] [phone] 2858 Sep, Bipolar 2 disorder F31.81 and Mood disorder F39 [facility] [id number] [place] [address] [phone] Sep, [facility] [id number] [place] [address] [phone]- 3781 Sep, Uncontrolled type 2 diabetes mellitus without complication, without long-term current use of insulin E11.65 [facility] [id number] [place] [address] [phone] Sep, [facility] [id number] [place] [address] [phone] Sep, [facility] [id number] [place] [address] [phone] Sep, [facility] [id number] [place] [address] [phone] Sep, [facility] [address] [phone]- [phone] Sep, Bipolar 2 disorder F31.81 ; Chronic post-traumatic stress disorder (PTSD) F43.12 ; Panic disorder with agoraphobia F40.01 and Epilepsy G40.909 [facility] [address] [address]- [address]40 Sep, Bipolar 2 disorder F31.81 ; PTSD (post-traumatic stress disorder) F43.10 and Panic disorder with agoraphobia F40.01 [facility] [id number] [place] [address] 19522- 7102 Sep, [facility] [id number] [place] [address] 25457- 0771 Aug, History of seizures Z87.898 ; Panic disorder with agoraphobia F40.01 and Bipolar 2 disorder F31.81 [facility] [id number] [place] [address] 61591- 1500 Aug, [facility] [id number] [place] [address] 66808- 2154 Aug, [facility] [id number] [place] [address] 11033- 4539 Aug, [facility] [id number] [place] [address] 54127- 4212 Aug, [facility] [id number] [place] [address] 74693- 3563 Aug, [facility] [address] 70971- 7656 Aug, [facility] [id number] [place] [address] 76466- 7289 Aug, Hypoglycemia E16.2 and Bilateral impacted cerumen H61.23 [facility] [address] [address] 133[address] Aug, [facility] [id number] [place] [address] 05297- 1646 Jul, [facility] [id number] [place] [address] 02444- 5756 Jul, [facility] [id number] [place] [address] 52255- 6417 Jul, Bipolar 2 disorder F31.81 ; Panic disorder with agoraphobia F40.01 ; PTSD (post-traumatic stress disorder) F43.10 and Epilepsy G40.909 [facility] [id number] [place] [address] 41273- 4073 Jul, [facility] [id number] [place] [address] 78856- 1262 Jul, Type 2 diabetes mellitus without complications E11.9 and Coughing R05 [facility] [id number] [place] [address] 35021- 9463 Jul, [facility] [id number] [place] [address] 72022- 7323 Jun, [facility] [id number] [place] [address] 55121- 2545 Jun, Bipolar 2 disorder F31.81 ; PTSD (post-traumatic stress disorder) F43.10 and Panic disorder with agoraphobia F40.01 [facility] [address], [place] [address] 2514 Jun, [facility] [id number] [place] [address] 61156- 0789 Jun, [facility] [id number] [place] [address] 95747- 2705 Jun, [facility] [id number] [place] [address] 73171- 9133 Jun, Type 2 diabetes mellitus without complications E11.9 and COPD (chronic obstructive pulmonary disease) J44.9 [facility] [address] [id number] May, Dental examination Z01.20 and Dental caries K02.9 [facility] [id number] [place] [address] 10705- 7276 May, Bipolar 2 disorder F31.81 ; PTSD (post-traumatic stress disorder) F43.10 and Panic disorder with agoraphobia F40.01 [facility] [id number] [place] [address] 66690- 6876 May, Lumbago with sciatica, right side M54.41 ; Other chronic pain G89.29 and Uncontrolled type 2 diabetes mellitus without complication, without long-term current use of insulin E11.65 [facility] [id number] [place] [address] 85873- 8132 May, Chronic bronchitis, unspecified chronic bronchitis type J42 [facility] [id number] [place] [address] 34075- 2798 May, [facility] [id number] [place] [address] 06419- 1762 May, [facility] [id number] [place] [address] 17786- 4767 May, Chest pain, unspecified type R07.9 ; Tobacco use Z72.0 ; Type 2 diabetes mellitus without complications E11.9 ; Essential hypertension I10 ; Hyperlipidemia, unspecified hyperlipidemia type E78.5 ; Obesity (BMI 30- 39.9) E66.9 ; History of hypothyroidism Z86.39 ; Chronic obstructive pulmonary disease, unspecified COPD type J44.9 ; Anxiety F41.9 ; Bilateral claudication of lower limb I73.9 and Bipolar 2 disorder F31.81 [facility] [address] [place] [address] 92382- 3541 May, Bipolar 2 disorder F31.81 ; Panic disorder with agoraphobia F40.01 and Tobacco abuse Z72.0 [facility] [id number] [place] [address] 23470- 7046 Apr, [facility] [id number] [place] [address] 29259- 6743 Apr, [facility] [id number] [place] [address] 25682- 6220 Apr, [facility] [address] 43314- 8131 Apr, Bipolar 2 disorder F31.81 ; Panic disorder with agoraphobia F40.01 and PTSD (post-traumatic stress disorder) F43.10 [facility] [id number] [place] [address] 23234- 0404 Apr, Chronic bronchitis, unspecified chronic bronchitis type J42 ; Cervical neuritis M54.12 and Thoracic neuritis M54.14 [facility] [id number] [place] [address] 43418- 1134 Apr, [facility] [id number] [place] [address] 09545- 5355 Apr, Cervicalgia M54.2 [facility] [id number] [place] [address] 20504- 7226 Apr, Bipolar 2 disorder F31.81 ; Panic disorder with agoraphobia F40.01 and PTSD (post-traumatic stress disorder) F43.10 [facility] [id number] [place] [address] 01638 -7171 Apr, [facility] [id number] [place] [address] 02360 -8736 09 Apr, 2016 Cough R05 and Tobacco dependence F17.200 [facility] [id number] [place] [address] 15032- 1275 Apr, [facility] [id number] [place] [address] 40783- 5509 Apr, [facility] [id number] [place] [address] 37445- 6187 March, Bipolar 2 disorder F31.81 ; Panic disorder with agoraphobia F40.01 and Generalized anxiety disorder F41.1 [facility] [id number] [place] [address] 71372- 3497 March, Closed displaced fracture of fifth metatarsal bone of right foot with routine healing, subsequent encounter S92.351D [facility] [id number] [place] [address] 78435- 1626 March, Bronchitis J40 [facility] [address] 36087- 0071 March, [facility] [address] 58470- 4783 March, [facility] [id number] [place] [address] 45119- 6908 March, Foot pain, right M79.671 ; Cervicalgia M54.2 and 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 mellitus without complication, unspecified intermission coordinator insulin use status E11.9 [facility] [id number] [place] [address] 21148- 0675 March, Fracture of fifth metatarsal bone of right foot S92.351A [facility] [id number] [place] [address] 78003- 1595 March, [facility] [id number] [place] [address] 70051- 9183 Jan, Fracture of fifth metatarsal bone of right foot S92.351A [facility] [id number] [place] [address] 46522- 4536 Jan, Bipolar 2 disorder F31.81 ; PTSD (post-traumatic stress disorder) F43.10 ; Panic disorder with agoraphobia F40.01 and Epilepsy G40.909 [facility] [id number] [place] [address] 27945- 1240 Jan, History of OH (myocardial infarction) I25.2 and History of high cholesterol Z86.39 [facility] [id number] [place] [address] 55708- 6349 Jan, Bipolar 2 disorder F31.81 ; Panic disorder with agoraphobia F40.01 ; Tobacco abuse Z72.0 and PTSD (post-traumatic stress disorder) F43.10 [facility] [id number] [place] [address] 70906- 3186 Jan, Fracture of fifth metatarsal bone of right foot S92.351A [facility] [id number] [place] [address] 46800- 3230 Jan, [facility] [id number] [place] [address] 56307- 7930 Jan, History of high cholesterol Z86.39 [facility] [id number] [place] [address] 22773- 5489 Jan, History of [place] (myocardial infarction) I25.2 [facility] [id number] [place] [address] 47699- 6086 Jan, [facility] [id number] [place] [address] 67039- 6091 Dec, Back pain M54.9 ; Diabetes E11.9 ; Right knee pain M25.561 and Chest pain R07.9 [facility] [id number] [place] [address] 22515- 2749 Dec, [facility] [id number] [place] [address] 38051- 4517 Dec, [facility] [id number] [place] [address] 94215- 1112 Dec, Cervicalgia M54.2 [facility] [id number] [place] [address] 87990- 1405 17 Jan, 2016 Bipolar 2 disorder F31.81 ; PTSD (post-traumatic stress disorder) F43.10 ; Panic disorder with agoraphobia F40.01 and Epilepsy G40.909 [facility] [id number] [place] [address] 01364- 7962 Dec, Bipolar 2 disorder F31.81 ; PTSD (post-traumatic stress disorder) F43.10 and Panic disorder with agoraphobia F40.01 [facility] [id number] [place] [address] 80376- 7061 Dec, Diabetes E11.9 [facility] [address] 84270- 1772 Dec, [facility] [address] 38465- 3830 Dec, Other chronic pain G89.29 ; Hepatitis C B19.20 and History of seizures Z87.898 [facility] [id number] [place] [address] 55605- 1401 Dec, [facility] [id number] [place] [address] 61130- 6961 Dec, Bipolar 2 disorder F31.81 and Other chronic pain G89.29 [facility] [id number] [place] [address] 73567- 5965 Dec, Cervicalgia M54.2 and Diabetes E11.9 [facility] [id number] [place] [address] 78901- 1924 Dec, [facility] [id number] [place] [address] 03247- 6371 Dec, [facility] [id number] [place] [address] 28785- 3827 Dec, [facility] [id number] [place] [address] 31623- 5247 Dec, [facility] [id number] [place] [address] 46957- 6074 Dec, Type 2 diabetes mellitus without complications E11.9 [facility] [id number] [place] [address] 25918- 7370 10 Dec, 2015 [facility] [address] 54248- 8789 Dec, History of seizures Z87.898 and Hepatitis C B19.[address] 27367- 5656 08 Dec, 2015 Hepatitis C B19.20 [facility] [address] 79999- 6903 Dec, [address] 72614- 1398 Dec, Cervicalgia M54.2 ; COPD (chronic obstructive pulmonary disease) J44.9 and Hepatitis C B19.[address] 84216- 1493 Dec, Bipolar 2 disorder F31.81 ; History of hypertension Z86.79 ; History of anxiety Z86.59 ; Panic disorder with agoraphobia F40.01 and Epilepsy G40.[address] 64998- 5375 Nov, [facility] [id number] [place] [address] 51945- 2065 Nov, [place] [place] [id number] [place] [address] 33062- 1681 Nov, History of seizures Z87.898 ; OAB (overactive bladder) N32.81 ; Lumbago M54.5 ; Other chronic pain G89.29 ; Cervicalgia M54.2 ; Tobacco abuse Z72.0 ; Tobacco abuse counseling Z71.6 and Impaired fasting glucose R73.01 [place] [id number] [place] [address] 08075- 0445 Nov, Bipolar 2 disorder F31.81 ; PTSD (post-traumatic stress disorder) F43.10 ; History of anxiety Z86.59 ; History of COPD Z87.09 ; Panic disorder with agoraphobia F40.01 and Moderate depressed bipolar I disorder F31.32 [facility] [id number] [place] [address] 80548- 7675 12 Nov, 2015 PTSD (post-traumatic stress disorder) F43.10 [facility] [address] [address] 11 Nov, 2015 Dental examination Z01.20 and Dental caries K02.9 [facility] [id number] [place] [address] 84189- 7011 08 Nov, 2015 History of hypertension Z86.79 ; History of hypothyroidism Z86.39 ; History of high cholesterol Z86.39 ; History of COPD Z87.09 and Overactive bladder N32.81 [facility] [id number] [place] [address] 94909- 8075 Nov, Bipolar 2 disorder F31.81 and PTSD (post-traumatic stress disorder) F43.10 [facility] [id number] [place] [address] 98545- 2283 Nov, PTSD (post-traumatic stress disorder) F43.10 ; Panic disorder with agoraphobia F40.01 ; Epilepsy G40.909 and Moderate depressed bipolar I disorder F31.32 [facility] [id number] [place] [address] 02708- 5407 Nov, [facility] [id number] [place] [address] 41654- 6659 Nov, [facility] [id number] [place] [address] 55982- 0406 Oct, [facility] [id number] [place] [address] 59041- 2103 Oct, Generalized anxiety disorder F41.1 ; Major depression, recurrent F33.9 and PTSD (post-traumatic stress disorder) F43.10 [facility] [id number] [place] [address] 33259- 1240 Oct, Elevated fasting glucose R73.01 [facility] [address] [place] [address] 27602- 3372 Oct, Elevated fasting glucose R73.01 [facility] [address] [place] [address] 35650- 7601 Oct, History of COPD Z87.09 [facility] [id number] [place] [address] 57292- 7047 15 Oct, 2015 General medical exam Z00.00 ; History of hypertension Z86.79 ; History of hypothyroidism Z86.39 ; History of hepatitis Z86.19 ; History of high cholesterol Z86.39 and History of seizures Z87.898 [facility] [address] [place] [address] 87328- 5830 Oct, General medical exam Z00.00 ; History of hypertension Z86.79 ; History of hypothyroidism Z86.39 ; Bipolar 2 disorder F31.81 ; PTSD ( post-traumatic stress disorder) F43.10 ; History of hepatitis Z86.19 ; History of high cholesterol Z86.39 ; History of anxiety Z86.59 ; History of seizures Z87.898 ; History of OH (myocardial infarction) I25.2 and History of COPD Z87.09 [facility] [address], [place] [address]- 4435 Oct, Generalized anxiety disorder F41.1 ; Depression F32.9 and PTSD (post-traumatic stress disorder) F43.10 [facility] [address], [place] [address]- 9976 Jan, [facility] [address] [place] [address] 66773- 5225 Jan, [facility] [address] [place] [address] 04263- 4279 Jun, [facility] [address] [place] [id number] Jun, [facility] [address] [place] [address] 24633- 2546 May, [facility] [address] [facility] [id number] [address]- 6046 May, [facility] [address] [place] [id number] May, [facility] [address] [facility] [id number] [address]- 2546 May, [facility] [address] [place] [id number] May, [facility] [address] [facility] [id number] [address]- 2546 May, IMMUNIZATIONS No Known Immunizations SOCIAL HISTORY Never Assessed REASON FOR VISIT yana/Naila REYNOSO PLAN OF CARE Activity Details Follow Up 6 Weeks Reason: VITAL SIGNS Height 62 in 2018-03-18 Weight 163.1 lbs 2018-03-18 Heart Rate 80 bpm 2018-03-18 Respiratory Rate 20 2018-03-18 BMI 29.83 kg/m2 2018-03-18 Blood pressure systolic 130 mmHg 2018-03-18 Blood pressure diastolic 70 mmHg 2018-03-18 MEDICATIONS Medication Instructions Dosage Frequency Start Date End Date Duration Status Levemir 100 UNIT/ML Subcutaneous 2 times a day Inject 60 units 12h Dec, Active Albuterol Sulfate 1.25 MG/3ML Inhalation 4 times a day 3 ml as needed 6h Apr, Active Microlet Lancets - as directed 8h March, Active Nebulizer 1 as directed Apr, Active Xanax 2 MG Orally 3 times a day and can take 1/2 additional tablet for panic 1 tablet Active Blood Glucose Monitor 1 glucometer test blood sugar Apr, Active Montelukast Sodium 10 mg Orally Once a day 1 tablet 24h Oct, 30 days Active Lipitor 40 mg Orally Once a day 1 tablet 24h Active Ventolin HFA 108 (90 Base) MCG/ACT Inhalation every 6 hrs 2 puffs as needed 6h Active Blood Glucose Monitor System w/Device DX- E11.9 Test fasting and 2 hours after meal test 3 times per day Dec, Active Amitriptyline HCl 25 MG Orally Once at bedtime for sleep 1 tablet March 30 day(s) Active Ditropan XL 10 mg Orally Once a day 1 tablet 24h Jan, Jun, 30 day(s) Active Aspirin 81 MG Orally Once a day 1 tablet 24h May, 30 day(s) Active Blood Glucose Test Strip And lancets. DX E11.9 Test fasting and 2 hours after meal test 3 times per day Dec, Active Insulin Syringe 31G X 5/16 subcutaneously 4 times a day Inject insulin 4 times daily as prescribed 6h Oct, Active Levothyroxine Sodium 150 MCG Orally Once a day 1 tablet 24h Oct, Active Rotan 10-325 MG Orally 3 times a day 1 tablet as needed 8h March, 28 days Active Protonix 40 MG Orally Once a day 1 tablet 24h Jan, 30 day(s) Active Cali Contour Next Test - In Vitro 3 times a day as directed 8h March, Active Xyzal 5 MG Orally Once a day 1 tablet in the evening 24h 30 Active Symbicort 160-4.5 MCG/ACT Inhalation Twice a day- rinse mouth and spit after use 2 puffs every day Apr, Active Atenolol 50 mg Orally Once a day 1 tablet 24h 30 Active Metoprolol Tartrate 25 MG Orally Twice a day for panic 1 tablet with food March, 30 day(s) Active NovoLog 100 UNIT/ML DX E11.9 3 times a day before meals Inject 30 units Dec, Active RESULTS No Results PROCEDURES No Known procedures INSTRUCTIONS MEDICATIONS ADMINISTERED No Known Medications MEDICAL (GENERAL) HISTORY Type Description Date Medical History Hypothyroidism Medical History High cholesterol Medical History Hypertension Medical History Brain seizure Medical History Asthma Medical History COPD Medical History Hep C -2004 Medical History OH x 2 last in [...]
--- OUTSIDE RECORDS SUMMARY | 2019-01-26 07:57 | XMS REPORT ---
Author Author FRANK LUNA Organization [facility] Address [address] [place] [address] Care Team Providers Care Solution Sales Senior Executive Name Role Phone FRANK LUNA Unavailable PROBLEMS Type Condition ICD9-CM Code XNU61-UN Code Onset Dates Condition Status SNOMED Code Problem OAB (overactive bladder) N32.81 Active 917603880 Problem Epilepsy G40.909 Active 62675537 Problem Cervicalgia M54.2 Active 66479404 Problem Other chronic pain G89.29 Active 30444353 Problem Tobacco abuse Z72.0 Active 45439376 Problem Lumbago M54.5 Active 367502813 Problem Hepatitis C B19.20 Active 67143524 Problem COPD (chronic obstructive pulmonary disease) J44.9 Active 90608403 Problem Diabetes E11.9 Active 99784050 Problem Bipolar I disorder with duy F31.10 Active 28674336 Problem Type 2 diabetes mellitus without complications E11.9 Active 809460556 Problem Stress incontinence of urine N39.3 Active 27063494 Problem Bilateral claudication of lower limb I73.9 Active 114397291 Problem Seasonal allergic rhinitis due to other allergic trigger J30.89 Active 661187027 Problem Hyperlipidemia, unspecified hyperlipidemia type E78.5 Active 50594629 Problem Hypertension, unspecified type I10 Active 85345189 Problem Chronic tension-type headache, not intractable G44.229 Active 703421529 Problem 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 mellitus without complication, without long -term current use of insulin E11.9 Active 372786431 Problem Type 2 diabetes mellitus with hyperglycemia E11.65 Active 367230132 Problem Chronic post-traumatic stress disorder (PTSD) F43.12 Active 998470297 Problem History of hypothyroidism Z86.39 Active 084494157 Problem Hypoglycemia E16.2 Active 866980566 Problem El's esophageal ulceration K22.10 Active 178551278 Problem Bipolar affective disorder, currently depressed, mild F31.31 Active 621246406 Problem Irritable bowel syndrome with diarrhea K58.0 Active 029361419 Problem Stress incontinence N39.3 Active 79035940 Problem History of hypertension Z86.79 Active 377324507 Problem Uncontrolled type 2 diabetes mellitus without complication, without long-term current use of insulin E11.65 Active 218663724 Problem Panic disorder with agoraphobia F40.01 Active 35513723 Problem Type 2 diabetes mellitus with hyperglycemia E11.65 Active 219906582 Problem History of seizures Z87.898 Active 052604877 Problem skilled nursing current use of insulin Z79.4 Active 366831076 Problem History of IA (myocardial infarction) I25.2 Active 704191884 Problem Mood disorder F39 Active 75410026 Problem Bipolar 2 disorder F31.81 Active 19741419 Problem Gastritis and duodenitis K29.90 Active 212586884 Problem History of high cholesterol Z86.39 Active 049836922 Problem Bipolar I disorder with mood-congruent psychotic features F31.9 Active 843704822 Problem Hypertension, benign I10 Active 50069065 Problem Primary insomnia F51.01 Active 8813269 ALLERGIES No Information ENCOUNTERS Encounter Location Date Diagnosis [place] [address] [address] 11 Jul, 2018 [facility] [address] 59[address]- 6316 17 Jun, 2018 [facility] [address] [place] [id number] [place] [address] 87275- 4330 16 Jun, 2018 [facility] [address] [place] [id number] [place] [address] 07050- 1117 14 Jun, 2018 Bipolar affective disorder, currently depressed, mild F31.31 ; Chronic post-traumatic stress disorder (PTSD) F43.12 and Panic disorder with agoraphobia F40.01 [facility] [address] [address]- 8503 14 Jun, 2018 [facility] [address] 67686- 2039 13 Jun, 2018 [facility] [address] 38884- 2889 09 Jun, 2018 Type 2 diabetes mellitus with hyperglycemia E11.65 [facility] [address] [facility] [id number] [place] [address] 4829 Jun, Uncontrolled type 2 diabetes mellitus with hyperglycemia E11.65 [facility] [address] [facility] [id number] [place] [address] 0236 Jun, [facility] [address] [facility] [id number] [address] May, Lumbago M54.5 [facility] [address] [facility] [id number] [id number] May, [facility] [address] [place] [id number] [place] [address] 11799- 6970 May, [facility] [address] [id number] [address] 4903 May, [facility] [address] [place] [id number] [place] [address] 94661- 1028 May, [facility] [address] [id number] [address] 0461 May, [facility] [id number] [place] [address] 60319- 4055 May, [facility] [address], [place] [address] 4086 May, [facility] [address], [place] [address] 4065 May, Lumbago M54.5 [facility] [address] [id number] [address] 5301 May, [facility] [address], [place] [address] [address], [address] of the chest R93.8 [facility] [address], [place] [address] 8638 Apr, Bipolar 2 disorder F31.81 ; Chronic post-traumatic stress disorder (PTSD) F43.12 and Panic disorder with agoraphobia F40.01 [place] [address] [place] [id number] [place] [address] 11536- [address] Apr, [address] of the chest R93.8 [place] [address] [place] [id number] [place] [address] 23295- 5795 20 Apr, [address] of the chest R93.8 [place] [address] 47356- 2116 14 Apr, 2018 [place] [address] 13136- 7603 Apr, Type 2 diabetes mellitus with hyperglycemia E11.65 [place] [address] 25071- 6977 Apr, 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 mellitus without complication, without long-term current use of insulin E11.9 ; Watery eyes H04.203 ; Low back pain M54.5 ; Other chronic pain G89.29 ; Chronic tension-type headache, not intractable G44.229 ; Uncontrolled type 2 diabetes mellitus without complication , without long-term current use of insulin E11.65 and Bronchitis J40 [place] [address] 24664- 7974 Apr, [place] [address] [place] [id number] [place] [address] 93870- 2112 Apr, Lumbago M54.5 [place] [address] [place] [id number] [place] [address] 28819- 7753 March, [facility] [address] [place] [id number] [place] [address] 55958 -6454 March, Cough R05 ; Pneumonia due to infectious organism, unspecified laterality, unspecified part of lung J18.9 and Non-intractable vomiting with nausea, unspecified vomiting type R11.2 [place] [address] 88925- 3367 March, Bronchitis J40 [place] [address] [id number] [address] 3312 March, [facility] [address] [place] [id number] [place] [address] 92631- 6962 March, El's esophageal ulceration K22.10 and Type 2 diabetes mellitus with hyperglycemia E11.65 [facility] [address] [place] [id number] [place] [address] 57537- 2367 March, Panic disorder with agoraphobia F40.01 ; Chronic post- traumatic stress disorder (PTSD) F43.12 and Bipolar 2 disorder F31.81 [facility] [address] [place] [id number] [place] [address] 85378- 8891 March, Type 2 diabetes mellitus with hyperglycemia E11.65 [facility] [address] [place] [id number] [place] [address] 79866- 8494 March, [facility] [address] [place] [id number] [place] [address] 98163- 4474 March, Lumbago M54.5 [facility] [address] [place] [id number] [place] [address] 69932- 8553 March, [facility] [address] [place] [id number] [place] [address] 00525- 8009 March, Irritable bowel syndrome with diarrhea K58.0 ; Primary insomnia F51.01 ; Type 2 diabetes mellitus with hyperglycemia E11.65 and 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 [facility] [address], [place] [address]- 9135 March, [facility] [address] [id number] [address]- 7503 Jan, [facility] [address] [place] [id number] [place] [address] 85921- 7425 Jan, [facility] [address], [place] [address]- 1811 Jan, [facility] [address] [place] [id number] [place] [address] 86432- 7062 Jan, [place] [address] [place] [id number] [place] [address] 32464- 9049 Jan, Dizziness R42 [place] [address] [place] [id number] [place] [address] 62575- 2931 Jan, Bipolar affective disorder, currently depressed, mild F31.31 ; Panic disorder with agoraphobia F40.01 and Chronic post-traumatic stress disorder (PTSD) F43.12 [place] [address] [place] [id number] [place] [address] 68464- 9615 Jan, Dizziness R42 [place] [address] 99684- 8958 Jan, Chest pain, unspecified type R07.9 ; Exertional dyspnea R06.09 ; Hypertension, unspecified type I10 and Hyperlipidemia, unspecified hyperlipidemia type E78.5 [place] [address] 78648- 0993 Jan, [place] [address] [place] [id number] [place] [address] 74711- 1880 Jan, Lumbago M54.5 [place] [address] [place] [id number] [place] [address] 13435- 0848 Jan, El's esophageal ulceration K22.10 ; Blister (nonthermal ) of oral cavity, initial encounter S00.522A ; Local infection of the skin and subcutaneous tissue, unspecified L08.9 ; Type 2 diabetes mellitus with hyperglycemia E11.65 ; skilled nursing current use of insulin Z79.4 and Stress incontinence N39.3 [place] [address] [place] [id number] [place] [address] 09714- 9294 Dec, [place] [address] [place] [id number] [place] [address] 43522- 0539 Dec, [place] [address] [place] [id number] [place] [address] 38503- 5623 Dec, [place] [address] [address] 16 Dec, 2017 Dental examination Z01.20 [facility] [address] [place] [id number] [place] [address] 26875- 2708 15 Dec, 2017 Acute pain of right knee M25.561 [facility] [address] [place] [id number] [place] [address] 03501- 3774 14 Dec, 2017 [facility] [address] [place] [id number] [place] [address] 66296- 5676 14 Dec, 2017 [facility] [address] [place] [id number] [place] [address] 09651- 9916 14 Dec, 2017 Lumbago M54.5 ; Acute pain of right knee M25.561 and Seasonal allergic rhinitis due to other allergic trigger J30.89 [place] [address] [place] [id number] [place] [address] 31652- 8344 12 Dec, 2017 Type 2 diabetes mellitus with hyperglycemia E11.65 [place] [address] [place] [id number] [place] [address] 19372- 0282 08 Dec, 2017 [facility] [address] [place] [id number] [place] [address] 53822- 0093 08 Dec, 2017 [facility] [id number] [place] [address] 59903- 6929 23 Dec, 2017 [facility] [address] [place] [id number] [place] [address] 77342- 3952 15 Dec, 2017 [facility] [address] [place] [id number] [place] [address] 23396- 8676 15 Dec, 2017 Chronic post-traumatic stress disorder (PTSD) F43.12 and Panic disorder with agoraphobia F40.01 [facility] [id number] [place] [address] 15346- 2376 13 Dec, 2017 Low back pain M54.5 [facility] [address] [place] [id number] [place] [address] 13460- 4849 12 Dec, 2017 Type 2 diabetes mellitus with hyperglycemia E11.65 ; 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 ; Low back pain M54.5 ; Encounter for therapeutic drug level monitoring Z51.81 and Other chronic pain G89.29 [facility] [address] [place] [id number] [place] [address] 85333- 3744 09 Dec, 2017 Coughing R05 [facility] [address] 82316- 8664 Dec, [facility] [address] [id number] 07 Dec, 2017 Dental examination Z01.[address] 98931- 1123 Nov, Type 2 diabetes mellitus without complications E11.9 and Encounter for therapeutic drug level monitoring Z51.[address] 94865- 3531 Nov, [place] [address] [place] [id number] [place] [address] 83531- 4980 Oct, Type 2 diabetes mellitus without complications E11.9 [place] [id number] [place] [address] 97626- 4324 Oct, Type 2 diabetes mellitus with hyperglycemia E11.65 [place] [address] [place] [id number] [place] [address] 94962- 8869 Aug, Type 2 diabetes mellitus without complications E11.9 [place] [address] [place] [id number] [place] [address] 79168- 7745 Aug, Type 2 diabetes mellitus without complications E11.9 ; Hypoglycemia E16.2 ; Lumbago M54.5 ; Stress incontinence of urine N39.3 and History of IA (myocardial infarction) I25.2 [place] [address] [place] [id number] [place] [address] 62457- 2428 Jun, [place] [address] 44540- 7303 May, [facility] [address], [place] [address]- 5170 Apr, Panic disorder with agoraphobia F40.01 [facility] [address], [place] [address]- 0217 08 Apr, 2017 Panic disorder with agoraphobia F40.01 [facility] [address], [place] [address]- 9886 Apr, [facility] [address], [place] [address]- 2992 March, Other chronic pain G89.29 [facility] [address] [place] [id number] [place] [address] 84340- 1197 March, [facility] [address] [place] [id number] [address]- 2995 March, [facility] [address] [place] [id number] [place] [address] 31522- 6421 March, [facility] [address], [place] [address]- 3767 March, [facility] [address], [place] [address]- 0815 March, Type 2 diabetes mellitus without complications E11.9 [facility] [address], [place] [address]- 6221 March, Diarrhea, unspecified type R19.7 [facility] [address], [place] [address]- 8639 March, Bipolar 2 disorder F31.81 ; Chronic post-traumatic stress disorder (PTSD) F43.12 and Type 2 diabetes mellitus with hyperglycemia E11.65 [facility] [address], [place] [address]- 0905 March, [facility] [address], [place] [address]- 4726 March, [facility] [address], [place] [address]- 9784 March, Hypertension, benign I10 ; Type 2 diabetes mellitus with hyperglycemia E11.65 ; Hepatitis C B19.20 ; Gastritis and duodenitis K29.90 and Dysuria R30.0 [facility] [id number] [place] [address] 54816- 6680 March, Hypertension, benign I10 ; Type 2 diabetes mellitus with hyperglycemia E11.65 ; Hepatitis C B19.20 ; Gastritis and duodenitis K29.90 and Dysuria R30.0 [place] [address] [place] [address] 73022- 5314 March, Panic disorder with agoraphobia F40.01 ; Chronic post- traumatic stress disorder (PTSD) F43.12 ; Epilepsy G40.909 and Bipolar I disorder with mood-congruent psychotic features F31.9 [place] [address] [place] [id number] [place] [address] 98046- 1098 March, [place] [address] [place] [id number] [place] [address] 80225- 4389 March, Type 2 diabetes mellitus with hyperglycemia E11.65 [place] [address] [place] [id number] [place] [address] 06055- 0517 18 Jan, 2017 Bipolar I disorder with duy F31.10 [place] [id number] [place] [address] 28686- 9359 Jan, Bipolar 2 disorder F31.81 ; Chronic post-traumatic stress disorder (PTSD) F43.12 and Type 2 diabetes mellitus with hyperglycemia E11.65 [place] [id number] [place] [address] 57329- 0609 Jan, [place] [address] [place] [id number] [place] [address] 91379- 4507 Jan, [facility] [address], [place] [address]- 8237 Jan, Panic disorder with agoraphobia F40.01 [facility] [address] [place] [id number] [place] [address] 78963- 2432 13 Jan, 2017 Panic disorder with agoraphobia F40.01 ; Bipolar I disorder with mood-congruent psychotic features F31.9 ; Chronic post-traumatic stress disorder (PTSD) F43.12 and Epilepsy G40.909 [facility] [address] [place] [id number] [place] [address] 35024- 9585 12 Jan, 2017 [facility] [address] [place] [id number] [place] [address] 73300- 6265 Jan, [facility] [address] 18127- 3672 10 Jan, 2017 Type 2 diabetes mellitus without complications E11.9 and Hypoglycemia E16.2 [facility] [address] [place] [id number] [place] [address] 25531- 4202 07 Jan, 2017 Type 2 diabetes mellitus without complications E11.9 ; Primary insomnia F51.01 and Hypertension, benign I10 [facility] [address] [place] [id number] [place] [address] 36337- 4584 06 Jan, 2017 [facility] [address] [place] [id number] 05 Jan, 2017 [facility] [address] [place] [id number] [place] [address] 97796- 7130 31 Dec, 2016 Type 2 diabetes mellitus with hyperglycemia E11.65 [facility] [address] [place] [id number] [place] [address] 73300- 1259 Dec, [facility] [address] [place] [id number] [place] [address] 87246- 9288 Dec, Bipolar 2 disorder F31.81 ; Panic disorder with agoraphobia F40.01 ; Chronic post-traumatic stress disorder (PTSD) F43.12 and Epilepsy G40.909 [facility] [address] [place] [id number] [place] [address] 62504- 2579 Dec, [facility] [address] [place] [id number] [place] [address] 03931- 8195 Dec, [facility] [id number] [place] [address] 24911- 6661 Dec, Bipolar 2 disorder F31.81 ; Panic disorder with agoraphobia F40.01 ; Chronic post-traumatic stress disorder (PTSD) F43.12 and Epilepsy G40.909 [place] [address] [place] [id number] [place] [address] 83915- 3085 Dec, [facility] [address] [place] [id number] [place] [address] 84504- 6573 Dec, [place] [address] [place] [id number] [place] [address] 76504- 4318 Dec, [place] [address] [place] [id number] [place] [address] 25798- 2531 Dec, Type 2 diabetes mellitus with hyperglycemia E11.65 ; skilled nursing current use of insulin Z79.4 and Lumbago M54.5 [place] [address] [place] [id number] [place] [address] 10295- 8988 Dec, [place] [address] [place] [id number] [place] [address] 63887- 9935 Dec, [place] [address] [place] [id number] [place] [address] 08951- 9121 Dec, [facility] [id number] [place] [address] 56404 -9947 Dec, Pain of left leg M79.605 and Pain in right leg M79.604 [place] [id number] [place] [address] 05528- 2286 Dec, [place] [address] [place] [id number] [place] [address] 65355- 1872 Dec, Type 2 diabetes mellitus with hyperglycemia E11.65 [place] [address] [place] [id number] [place] [address] 04625- 4478 Dec, [place] [address] [place] [id number] [place] [address] 99136- 4738 Dec, Type 2 diabetes mellitus with hyperglycemia E11.65 ; skilled nursing current use of insulin Z79.4 ; Vagina, candidiasis B37.3 and Other chronic pain G89.29 [place] [address] 50234- 4314 Nov, Panic disorder with agoraphobia F40.01 [place] [address] [place] [id number] [place] [address] 30878- 2195 Nov, [place] [address] 52450- 6893 Nov, [place] [address] 10584- 3804 Nov, Hypoglycemia E16.2 [place] [address] 29842- 5577 Nov, [place] [address] [place] [id number] [place] [address] 29333- 5136 Nov, [place] [address] 10578- 0043 Nov, [place] [address] [place] [id number] [place] [address] 44467- 0961 Nov, Type 2 diabetes mellitus with hyperglycemia E11.65 and skilled nursing current use of insulin Z79.4 [place] [address] [place] [id number] [place] [address] 09077- 5611 Nov, Panic disorder with agoraphobia F40.01 ; Bipolar 2 disorder F31.81 ; Chronic post-traumatic stress disorder (PTSD) F43.12 and Epilepsy G40.909 [place] [id number] [place] [address] [phone]- [phone] Nov, Panic disorder with agoraphobia F40.01 [place] [id number] [place] [address] [phone]- [phone] 16 Oct, 2016 [facility] [id number] [place] [address] [phone]- [phone] Oct, [facility] [id number] [place] [address] [phone]- [phone] Oct, Bipolar 2 disorder F31.81 ; Panic disorder with agoraphobia F40.01 and Mood disorder F39 [facility] [id number] [place] [address] 28834- [phone] Oct, Diabetes E11.9 ; Type 2 diabetes mellitus with hyperglycemia E11.65 and skilled nursing current use of insulin Z79.4 [facility] [id number] [place] [address] [phone]- [phone] Oct, [facility] [id number] [place] [address] [phone]- [phone] Sep, [facility] [id number] [place] [address] [phone]- 7511 Sep, Bipolar 2 disorder F31.81 and Mood disorder F39 [facility] [id number] [place] [address] [phone]- 6914 Sep, [facility] [id number] [place] [address] [phone]- [phone] Sep, Uncontrolled type 2 diabetes mellitus without complication, without long-term current use of insulin E11.65 [facility] [id number] [place] [address] 53331- [phone] Sep, [facility] [id number] [place] [address] [phone]- [phone] Sep, [facility] [id number] [place] [address] [phone]- [phone] Sep, [facility] [facility] [id number] [place] [address] 32328- 3572 Sep, [facility] [id number] [place] [address] 76961- 0512 Sep, Bipolar 2 disorder F31.81 ; Chronic post-traumatic stress disorder (PTSD) F43.12 ; Panic disorder with agoraphobia F40.01 and Epilepsy G40.909 [facility] [id number] [place] [address] 17179- 8110 Sep, Bipolar 2 disorder F31.81 ; PTSD (post-traumatic stress disorder) F43.10 and Panic disorder with agoraphobia F40.01 [facility] [address] 88230- 3667 Sep, [facility] [address] 83058- 9054 28 Aug, 2016 History of seizures Z87.898 ; Panic disorder with agoraphobia F40.01 and Bipolar 2 disorder F31.81 [facility] [address] 06362- 4292 Aug, [facility] [address] 90089- 3584 17 Aug, 2016 [facility] [address] 99059- 2610 Aug, [facility] [address] 35817- 2505 Aug, [facility] [address] 01297- 9976 Aug, [facility] [address] 68062- 5632 Aug, [facility] [address] 70713- 1005 Aug, Hypoglycemia E16.2 and Bilateral impacted cerumen H61.23 [facility] [address] 03630- 1340 Aug, [facility] [address] 18486- 7488 Jul, [facility] [id number] [place] [address] 33647- 1012 Jul, [facility] [id number] [place] [address] 45731- 7362 Jul, Bipolar 2 disorder F31.81 ; Panic disorder with agoraphobia F40.01 ; PTSD (post-traumatic stress disorder) F43.10 and Epilepsy G40.909 [facility] [id number] [place] [address] 06993- 8567 Jul, [facility] [id number] [place] [address] 67468- 0367 Jul, Type 2 diabetes mellitus without complications E11.9 and Coughing R05 [facility] [id number] [place] [address] 04725- 4064 Jul, [facility] [id number] [place] [address] 05369- 3539 Jun, [facility] [id number] [place] [address] 80366- 1264 Jun, Bipolar 2 disorder F31.81 ; PTSD (post-traumatic stress disorder) F43.10 and Panic disorder with agoraphobia F40.01 [facility] [id number] [place] [address] 60502- 7887 Jun, [facility] [id number] [place] [address] 52791- 6199 Jun, [facility] [id number] [place] [address] 49422- 3512 Jun, [facility] [id number] [place] [address] 70894- 2532 Jun, Type 2 diabetes mellitus without complications E11.9 and COPD (chronic obstructive pulmonary disease) J44.9 [facility] [id number] [id number] May, Dental examination Z01.20 and Dental caries K02.9 [facility] [id number] [place] [address] 04353- 9963 May, Bipolar 2 disorder F31.81 ; PTSD (post-traumatic stress disorder) F43.10 and Panic disorder with agoraphobia F40.01 [facility] [id number] [place] [address] 53678- 2010 May, Lumbago with sciatica, right side M54.41 ; Other chronic pain G89.29 and Uncontrolled type 2 diabetes mellitus without complication, without long-term current use of insulin E11.65 [place] [id number] [place] [address] 75993- 3299 May, Chronic bronchitis, unspecified chronic bronchitis type J42 [facility] [id number] [place] [address] 42844- 4995 May, [facility] [address] 66057- 3279 May, [facility] [id number] [place] [address] 08914- 6193 May, Chest pain, unspecified type R07.9 ; [...] and Bipolar 2 disorder F31.81 [facility] [id number] [place] [address] 40953- 8658 May, Bipolar 2 disorder F31.81 ; Panic disorder with agoraphobia F40.01 and Tobacco abuse Z72.0 [facility] [id number] [place] [address] 94709- 6657 Apr, [facility] [id number] [place] [address] 88204- 7552 Apr, [facility] [id number] [place] [address] 72133- 2536 Apr, [facility] [address] 70470- 7159 Apr, Bipolar 2 disorder F31.81 ; Panic disorder with agoraphobia F40.01 and PTSD (post-traumatic stress disorder) F43.10 [facility] [facility] [address] 79470- 9601 Apr, Chronic bronchitis, unspecified chronic bronchitis type J42 ; Cervical neuritis M54.12 and Thoracic neuritis M54.14 [facility] [facility] [address] 15848- 7982 Apr, [facility] [facility] [address] 94329- 8070 Apr, Cervicalgia M54.2 [place] [address] 57361- 6269 Apr, Bipolar 2 disorder F31.81 ; Panic disorder with agoraphobia F40.01 and PTSD (post-traumatic stress disorder) F43.10 [facility] [id number] [place] [address] 95455 -6882 Apr, [facility] [id number] [place] [address] 02400 -4280 Apr, Cough R05 and Tobacco dependence F17.200 [facility] [id number] [place] [address] 97207- 8016 Apr, [facility] [facility] [id number] [place] [address] 96804- 1822 Apr, [facility] [facility] [id number] [place] [address] 06209- 6151 March, Bipolar 2 disorder F31.81 ; Panic disorder with agoraphobia F40.01 and Generalized anxiety disorder F41.1 [place] [id number] [place] [address] 91206- 7690 March, Closed displaced fracture of fifth metatarsal bone of right foot with routine healing, subsequent encounter S92.351D [facility] [facility] [id number] [place] [address] 21568- 6226 March, Bronchitis J40 [facility] [id number] [place] [address] 83397- 9463 March, [facility] [id number] [place] [address] 19608- 3541 March, [facility] [id number] [place] [address] 89832- 7823 March, Foot pain, right M79.671 ; Cervicalgia M54.2 and 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 mellitus without complication, unspecified jail insulin use status E11.9 [facility] [id number] [place] [address] 67741- 5552 March, Fracture of fifth metatarsal bone of right foot S92.351A [facility] [facility] [id number] [place] [address] 44952- 8727 March, [facility] [id number] [place] [address] 35284- 4362 Jan, Fracture of fifth metatarsal bone of right foot S92.351A [facility] [facility] [id number] [place] [address] 53053- 0223 Jan, Bipolar 2 disorder F31.81 ; PTSD (post-traumatic stress disorder) F43.10 ; Panic disorder with agoraphobia F40.01 and Epilepsy G40.909 [facility] [id number] [place] [address] 68714- 0586 Jan, History of IA (myocardial infarction) I25.2 and History of high cholesterol Z86.39 [facility] [id number] [place] [address] 40981- 3585 Jan, Bipolar 2 disorder F31.81 ; Panic disorder with agoraphobia F40.01 ; Tobacco abuse Z72.0 and PTSD (post-traumatic stress disorder) F43.10 [place] [address] 95011- 1900 Jan, Fracture of fifth metatarsal bone of right foot S92.351A [place] [address] 63565- 8373 Jan, [facility] [facility] [address] 45915 2089 Jan, History of high cholesterol Z86.39 [place] [address] 570234- 1629 Jan, History of IA (myocardial infarction) I25.2 [place] [address] 61914- 3088 Jan, [address] 69766- 7541 Dec, Back pain M54.9 ; Diabetes E11.9 ; Right knee pain M25.561 and Chest pain R07.[address] 69235- 9200 Dec, [facility] [id number] [place] [address] 46150- 8970 Dec, [address] 61101- 0236 Dec, Cervicalgia M54.2 [place] [id number] [place] [address] 71463- 6757 Dec, Bipolar 2 disorder F31.81 ; PTSD (post-traumatic stress disorder) F43.10 ; Panic disorder with agoraphobia F40.01 and Epilepsy G40.909 [place] [id number] [place] [address] 37956- 0183 08 Jan, 2016 Bipolar 2 disorder F31.81 ; PTSD (post-traumatic stress disorder) F43.10 and Panic disorder with agoraphobia F40.01 [facility] [id number] [place] [address] 41246- 2210 Dec, Diabetes E11.9 [facility] [id number] [place] [address] 61364- 7474 Dec, [facility] [id number] [place] [address] 85900- 6029 Dec, Other chronic pain G89.29 ; Hepatitis C B19.20 and History of seizures Z87.898 [facility] [id number] [place] [address] 87960- 1263 24 Dec, 2015 [facility] [address] 45341- 4502 Dec, Bipolar 2 disorder F31.81 and Other chronic pain G89.29 [facility] [id number] [place] [address] 88031- 3815 Dec, Cervicalgia M54.2 and Diabetes E11.9 [facility] [id number] [place] [address] 04033- 0179 Dec, [facility] [id number] [place] [address] 66045- 7288 Dec, [facility] [id number] [place] [address] 42419- 0533 Dec, [facility] [id number] [place] [address] 56745- 7139 Dec, [facility] [id number] [place] [address] 62965- 0183 Dec, Type 2 diabetes mellitus without complications E11.9 [facility] [id number] [place] [address] 12931- 7130 10 Dec, 2015 [facility] [id number] [place] [address] 88036- 3242 09 Dec, 2015 History of seizures Z87.898 and Hepatitis C B19.20 [place] [address] 22214- 7929 Dec, Hepatitis C B19.20 [place] [address] 23047- 3607 Dec, [place] [address] 05323- 5798 Dec, Cervicalgia M54.2 ; COPD (chronic obstructive pulmonary disease) J44.9 and Hepatitis C B19.20 [place] [address] 84333- 7803 Dec, Bipolar 2 disorder F31.81 ; History of hypertension Z86.79 ; History of anxiety Z86.59 ; Panic disorder with agoraphobia F40.01 and Epilepsy G40.909 [place] [address] 34174- 0876 Nov, [place] [address] 62557- 0381 Nov, [address] 18238- 0891 Nov, History of seizures Z87.898 ; OAB (overactive bladder) N32.81 ; Lumbago M54.5 ; Other chronic pain G89.29 ; Cervicalgia M54.2 ; Tobacco abuse Z72.0 ; Tobacco abuse counseling Z71.6 and Impaired fasting glucose R73.01 [place] [address] 22358- 7056 Nov, Bipolar 2 disorder F31.81 ; PTSD (post-traumatic stress disorder) F43.10 ; History of anxiety Z86.59 ; History of COPD Z87.09 ; Panic disorder with agoraphobia F40.01 and Moderate depressed bipolar I disorder F31.[address] 05154- 5577 Nov, PTSD (post-traumatic stress disorder) F43.10 [facility] [id number] [id number] 11 Nov, 2015 Dental examination Z01.20 and Dental caries K02.9 [facility] [id number] [place] [address] 59505- 5560 08 Nov, 2015 History of hypertension Z86.79 ; History of hypothyroidism Z86.39 ; History of high cholesterol Z86.39 ; History of COPD Z87.09 and Overactive bladder N32.81 [facility] [id number] [place] [address] 51197- 4105 07 Nov, 2015 Bipolar 2 disorder F31.81 and PTSD (post-traumatic stress disorder) F43.10 [facility] [facility] [id number] [place] [address] 57837- 0092 Nov, PTSD (post-traumatic stress disorder) F43.10 ; Panic disorder with agoraphobia F40.01 ; Epilepsy G40.909 and Moderate depressed bipolar I disorder F31.32 [place] [id number] [place] [address] 85762- 8641 Nov, [facility] [id number] [place] [address] 02311- 7670 Nov, [place] [id number] [place] [address] 29265- 5240 Oct, [place] [id number] [place] [address] 02719- 2755 Oct, Generalized anxiety disorder F41.1 ; Major depression, recurrent F33.9 and PTSD (post-traumatic stress disorder) F43.10 [place] [id number] [place] [address] 93339- 7253 Oct, Elevated fasting glucose R73.01 [place] [id number] [place] [address] 32722- 8122 Oct, Elevated fasting glucose R73.01 [place] [address] [address]- 5291 17 Oct, 2015 History of COPD Z87.09 [place] [address] [address]- 3496 15 Oct, 2015 General medical exam Z00.00 ; History of hypertension Z86.79 ; History of hypothyroidism Z86.39 ; History of hepatitis Z86.19 ; History of high cholesterol Z86.39 and History of seizures Z87.898 [place] [address], [place] [address]- 5164 10 Oct, 2015 General medical exam Z00.00 [...] and History of COPD Z87.09 [place] [address] [address]- 2218 Oct, Generalized anxiety disorder F41.1 ; Depression F32.9 and PTSD (post-traumatic stress disorder) F43.10 [place] [address] [address]- 1078 Jan, [place] [address] [address]- 5777 Jan, [place] [address] [address]- 5687 Jun, [facility] [address] [place] [id number] Jun, [place] [address] [place] [address]- 8606 May, [place] [address] [address]- 4471 May, [facility] [address] [place] [id number] May, [facility] [address] [facility] [id number] [place] [address]- 9318 May, [facility] [address] [id number] May, [facility] [address] [facility] [id number] [place] [address]- 5406 May, IMMUNIZATIONS No Known Immunizations SOCIAL HISTORY Never Assessed REASON FOR VISIT med PLAN OF CARE VITAL SIGNS MEDICATIONS Medication Instructions Dosage Frequency Start Date End Date Duration Status Xanax 2 MG Orally 3 times a day and can take 1/2 additional tablet for panic 1 tablet Active RESULTS No Results PROCEDURES No Known [...]
--- OUTSIDE RECORDS SUMMARY | 2019-01-26 07:59 | XMS REPORT ---
Author Author GERARDO KSIER [facility] Address [address] [place] [address] Care Team Providers Care Research Chief Engineer Name Role Phone MARGI GERARDO Unavailable PROBLEMS Type Condition ICD9-CM Code RSX08-YQ Code Onset Dates Condition Status SNOMED Code Problem OAB (overactive bladder) N32.81 Active 354600806 Problem Epilepsy G40.909 Active 25682785 Problem Cervicalgia M54.2 Active 89173362 Problem Other chronic pain G89.29 Active 42006266 Problem Tobacco abuse Z72.0 Active 04614860 Problem Lumbago M54.5 Active 995189179 Problem Hepatitis C B19.20 Active 88038149 Problem COPD (chronic obstructive pulmonary disease) J44.9 Active 48674975 Problem Diabetes E11.9 Active 30230461 Problem Bipolar I disorder with duy F31.10 Active 78622316 Problem Type 2 diabetes mellitus without complications E11.9 Active 388929444 Problem Stress incontinence of urine N39.3 Active 58235885 Problem Bilateral claudication of lower limb I73.9 Active 477000394 Problem Seasonal allergic rhinitis due to other allergic trigger J30.89 Active 945378342 Problem Hyperlipidemia, unspecified hyperlipidemia type E78.5 Active 60799424 Problem Hypertension, unspecified type I10 Active 93122025 Problem Chronic tension-type headache, not intractable G44.229 Active 841828672 Problem 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 mellitus without complication, without long -term current use of insulin E11.9 Active 810930113 Problem Type 2 diabetes mellitus with hyperglycemia E11.65 Active 584147089 Problem Chronic post-traumatic stress disorder (PTSD) F43.12 Active 851439748 Problem History of hypothyroidism Z86.39 Active 308247910 Problem Hypoglycemia E16.2 Active 126661142 Problem El's esophageal ulceration K22.10 Active 485473615 Problem Bipolar affective disorder, currently depressed, mild F31.31 Active 827379912 Problem Irritable bowel syndrome with diarrhea K58.0 Active 907791868 Problem Stress incontinence N39.3 Active 38444187 Problem History of hypertension Z86.79 Active 311722819 Problem Uncontrolled type 2 diabetes mellitus without complication, without long-term current use of insulin E11.65 Active 008760316 Problem Panic disorder with agoraphobia F40.01 Active 50409432 Problem Type 2 diabetes mellitus with hyperglycemia E11.65 Active 244129914 Problem History of seizures Z87.898 Active 782685372 Problem group home current use of insulin Z79.4 Active 920714416 Problem History of RI (myocardial infarction) I25.2 Active 185848912 Problem Mood disorder F39 Active 65869693 Problem Bipolar 2 disorder F31.81 Active 09023456 Problem Gastritis and duodenitis K29.90 Active 930830183 Problem History of high cholesterol Z86.39 Active 728660840 Problem Bipolar I disorder with mood-congruent psychotic features F31.9 Active 350095776 Problem Hypertension, benign I10 Active 53269298 Problem Primary insomnia F51.01 Active 3013569 ALLERGIES No Information ENCOUNTERS Encounter Location Date Diagnosis [place] [id number] [place] [address] 75839- 9918 11 Jul, 2018 [place] [address] [address]- 4241 14 Jun, 2018 Bipolar affective disorder, currently depressed, mild F31.31 ; Chronic post-traumatic stress disorder (PTSD) F43.12 and Panic disorder with agoraphobia F40.01 [place] [id number] [place] [address] 82146- 3812 14 Jun, 2018 [facility] [id number] [place] [address] 66750- 6328 13 Jun, 2018 [place] [address] 95388- 0126 09 Jun, 2018 Type 2 diabetes mellitus with hyperglycemia E11.65 [facility] [id number] [place] [address] 84040- 1889 08 Jun, 2018 Uncontrolled type 2 diabetes mellitus with hyperglycemia E11.65 [place] [address] [address]23- 7630 Jun, [facility] [address] [id number] [place] [address] 7[address] May, Lumbago M54.5 [facility] [address] [id number] [place] [id number] May, [facility] [address] [facility] [id number] [place] [address] 4908 May, [facility] [address] [facility] [id number] [place] [address]- 7922 May, [facility] [address] [id number] [place] [address]- 6251 May, [facility] [address] [id number] [place] [address]- 4541 May, [facility] [address] [facility] [id number] [place] [address]- 3082 May, [facility] [address] [facility] [id number] [place] [address]- 6700 May, [facility] [address] [facility] [id number] [place] [address]- 6353 May, Lumbago M54.5 [facility] [address] [facility] [id number] [place] [address]- 4721 May, [facility] [address] [facility] [id number] [address] [address], [address] of the chest R93.8 [facility] [address] [facility] [id number] [address] 6473 Apr, Bipolar 2 disorder F31.81 ; Chronic post-traumatic stress disorder (PTSD) F43.12 and Panic disorder with agoraphobia F40.01 [facility] [address] [facility] [id number] [place] [address] [address], [address] of the chest R93.8 [facility] [id number] [place] [address] 35425- 4474 20 Apr, [address] of the chest R93.8 [place] [address] 41511- 9187 Apr, [place] [id number] [place] [address] 39143- 0764 Apr, Type 2 diabetes mellitus with hyperglycemia E11.65 [place] [id number] [place] [address] 02579- 9501 Apr, 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 mellitus without complication, without long-term current use of insulin E11.9 ; Watery eyes H04.203 ; Low back pain M54.5 ; Other chronic pain G89.29 ; Chronic tension-type headache, not intractable G44.229 ; Uncontrolled type 2 diabetes mellitus without complication , without long-term current use of insulin E11.65 and Bronchitis J40 [place] [address] 62242- 1249 Apr, [place] [id number] [place] [address] 98511- 5269 Apr, Lumbago M54.5 [place] [id number] [place] [address] 61690- 1930 March, [facility] [id number] [place] [address] 38041 -6642 March, Cough R05 ; Pneumonia due to infectious organism, unspecified laterality, unspecified part of lung J18.9 and Non-intractable vomiting with nausea, unspecified vomiting type R11.2 [place] [id number] [place] [address] 36321- 8617 March, Bronchitis J40 [place] [id number] [place] [address] 39308- 2891 March, [place] [id number] [place] [address] 82399- 1033 March, El's esophageal ulceration K22.10 and Type 2 diabetes mellitus with hyperglycemia E11.65 [facility] [id number] [place] [address] 36494- 3412 March, Panic disorder with agoraphobia F40.01 ; Chronic post- traumatic stress disorder (PTSD) F43.12 and Bipolar 2 disorder F31.81 [facility] [id number] [place] [address] 60297- 4772 March, Type 2 diabetes mellitus with hyperglycemia E11.65 [facility] [id number] [place] [address] 57071- 5390 March, [facility] [address] 32950- 0044 March, Lumbago M54.5 [facility] [id number] [place] [address] 46641- 0188 March, [facility] [id number] [place] [address] 84014- 2848 March, Irritable bowel syndrome with diarrhea K58.0 ; Primary insomnia F51.01 ; Type 2 diabetes mellitus with hyperglycemia E11.65 and group home current use of insulin Z79.4 [facility] [id number] [place] [address] 17429- 6700 March, [facility] [address] [id number] [address] 9597 Jan, [facility] [id number] [place] [address] 52427- 4883 Jan, [facility] [id number] [place] [address] 74148- 7644 Jan, [facility] [id number] [place] [address] 37348- 1586 Jan, [facility] [id number] [place] [address] 64670- 2141 Jan, Dizziness R42 [facility] [address] [place] [address]- 5701 Jan, Bipolar affective disorder, currently depressed, mild F31.31 ; Panic disorder with agoraphobia F40.01 and Chronic post-traumatic stress disorder (PTSD) F43.12 [place] [id number] [place] [address] 75675- 4742 Jan, Dizziness R42 [place] [address] 27557- 2591 Jan, Chest pain, unspecified type R07.9 ; Exertional dyspnea R06.09 ; Hypertension, unspecified type I10 and Hyperlipidemia, unspecified hyperlipidemia type E78.5 [place] [address] 59088- 2745 Jan, [place] [address] 52886- 9183 Jan, Lumbago M54.5 [place] [address] 97979- 4637 Jan, El's esophageal ulceration K22.10 ; Blister (nonthermal ) of oral cavity, initial encounter S00.522A ; Local infection of the skin and subcutaneous tissue, unspecified L08.9 ; Type 2 diabetes mellitus with hyperglycemia E11.65 ; termination clerk 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.4 and Stress incontinence N39.3 [place] [id number] [place] [address] 02690- 1181 Dec, [place] [id number] [place] [address] 42926- 0260 Dec, [place] [id number] [place] [address] 28535- 1653 Dec, [facility] [id number] [place] [address] [id number] 16 Dec, 2017 Dental examination Z01.20 [place] [id number] [place] [address] 54074- 0202 15 Dec, 2017 Acute pain of right knee M25.561 [facility] [id number] [place] [address] 53302- 4522 14 Dec, 2017 [facility] [id number] [place] [address] 34440- 3882 14 Dec, 2017 [place] [id number] [place] [address] 22356- 6885 14 Dec, 2017 Lumbago M54.5 ; Acute pain of right knee M25.561 and Seasonal allergic rhinitis due to other allergic trigger J30.89 [place] [id number] [place] [address] 42343- 9754 Dec, Type 2 diabetes mellitus with hyperglycemia E11.65 [place] [id number] [place] [address] 53691- 7289 08 Dec, 2017 [place] [id number] [place] [address] 77478- 5432 08 Dec, 2017 [place] [id number] [place] [address] 09584- 0722 23 Dec, 2017 [place] [id number] [place] [address] 25186- 6669 15 Dec, 2017 [place] [id number] [place] [address] 84689- 7843 15 Dec, 2017 Chronic post-traumatic stress disorder (PTSD) F43.12 and Panic disorder with agoraphobia F40.01 [place] [id number] [place] [address] 82463- 3949 13 Dec, 2017 Low back pain M54.5 [place] [id number] [place] [address] 82300- 1859 12 Dec, 2017 Type 2 diabetes mellitus with hyperglycemia E11.65 ; termination clerk current use of insulin Z79.4 ; Low back pain M54.5 ; Other chronic pain G89.29 and Encounter for therapeutic drug level monitoring Z51.81 [place] [id number] [place] [address] 2546 Dec, Coughing R05 [facility] [address] [address]- 1118 Dec, [facility] [address] [id number] Dec, Dental examination Z01.20 [facility] [id number] [place] [address] 06559- 1327 Nov, Type 2 diabetes mellitus without complications E11.9 and Encounter for therapeutic drug level monitoring Z51.81 [facility] [id number] [place] [address] 36583- 6548 Nov, [place] [id number] [place] [address] 71076- 3281 Oct, Type 2 diabetes mellitus without complications E11.9 [facility] [id number] [place] [address] 73846- 2474 Oct, Type 2 diabetes mellitus with hyperglycemia E11.65 [facility] [address] [place] [address] 67547- 2826 Aug, Type 2 diabetes mellitus without complications E11.9 [facility] [id number] [place] [address] 97764- 9724 Aug, Type 2 diabetes mellitus without complications E11.9 ; Hypoglycemia E16.2 ; Lumbago M54.5 ; Stress incontinence of urine N39.3 and History of RI (myocardial infarction) I25.2 [facility] [address] [address]- 6898 Jun, [facility] [id number] [place] [address] 44263- 4614 May, [facility] [id number] [place] [address] 09775- 4861 Apr, Panic disorder with agoraphobia F40.01 [facility] [id number] [place] [address] 92307- 5802 Apr, Panic disorder with agoraphobia F40.01 [facility] [address] [place] [address] 01977- 4052 Apr, [facility] [id number] [place] [address] 66199- 9320 March, Other chronic pain G89.29 [facility] [id number] [place] [address] 58713- 0789 March, [facility] [id number] [place] [address] 93247- 9580 March, [facility] [id number] [place] [address] 11862- 7757 March, [facility] [id number] [place] [address] 32045- 1443 March, [facility] [id number] [place] [address] 34694- 2163 March, Type 2 diabetes mellitus without complications E11.9 [facility] [address] [place] [address] 74532- 3863 March, Diarrhea, unspecified type R19.7 [place] [address] [place] [address] 38850- 1330 March, Bipolar 2 disorder F31.81 ; Chronic post-traumatic stress disorder (PTSD) F43.12 and Type 2 diabetes mellitus with hyperglycemia E11.65 [facility] [address] [address]- 1255 March, [place] [id number] [place] [address] 80237- 9356 March, [place] [id number] [place] [address] 83737- 2393 March, Hypertension, benign I10 ; Type 2 diabetes mellitus with hyperglycemia E11.65 ; Hepatitis C B19.20 ; Gastritis and duodenitis K29.90 and Dysuria R30.0 [place] [address] [address]- 6708 March, Hypertension, benign I10 ; Type 2 diabetes mellitus with hyperglycemia E11.65 ; Hepatitis C B19.20 ; Gastritis and duodenitis K29.90 and Dysuria R30.0 [place] [id number] [place] [address] 65329- 4947 March, Panic disorder with agoraphobia F40.01 ; Chronic post- traumatic stress disorder (PTSD) F43.12 ; Epilepsy G40.909 and Bipolar I disorder with mood-congruent psychotic features F31.9 [place] [id number] [place] [address] 24929- 1594 March, [place] [id number] [place] [address] 03188- 8044 March, Type 2 diabetes mellitus with hyperglycemia E11.65 [place] [id number] [place] [address] 38563- 5410 18 Jan, 2017 Bipolar I disorder with duy F31.10 [place] [id number] [place] [address] 44943- 6223 Jan, Bipolar 2 disorder F31.81 ; Chronic post-traumatic stress disorder (PTSD) F43.12 and Type 2 diabetes mellitus with hyperglycemia E11.65 [place] [address] [place] [address] 17063- 7318 Jan, [place] [id number] [place] [address] 91411- 9623 Jan, [place] [id number] [place] [address] 38464- 5956 14 Jan, 2017 Panic disorder with agoraphobia F40.01 [facility] [address] [place] [address] 93778- 1720 Jan, Panic disorder with agoraphobia F40.01 ; Bipolar I disorder with mood-congruent psychotic features F31.9 ; Chronic post-traumatic stress disorder (PTSD) F43.12 and Epilepsy G40.909 [facility] [address] [address]- 9780 Jan, [facility] [id number] [place] [address] 60157- 4650 Jan, [facility] [id number] [place] [address] 12562- 2403 10 Jan, 2017 Type 2 diabetes mellitus without complications E11.9 and Hypoglycemia E16.2 [facility] [id number] [place] [address] 68115- 3138 07 Jan, 2017 Type 2 diabetes mellitus without complications E11.9 ; Primary insomnia F51.01 and Hypertension, benign I10 [facility] [id number] [place] [address] 51579- 0025 06 Jan, 2017 [facility] [id number] [place] [address] [id number] Jan, [facility] [id number] [place] [address] 64029- 6815 31 Dec, 2016 Type 2 diabetes mellitus with hyperglycemia E11.65 [facility] [id number] [place] [address] 35394- 4278 Dec, [facility] [id number] [place] [address] 96172- 6110 Dec, Bipolar 2 disorder F31.81 ; Panic disorder with agoraphobia F40.01 ; Chronic post-traumatic stress disorder (PTSD) F43.12 and Epilepsy G40.909 [facility] [address] [address]- 6438 Dec, [facility] [id number] [place] [address] 96935- 9538 14 Dec, 2016 [facility] [address] [place] [address] 31854- 3102 09 Dec, 2016 Bipolar 2 disorder F31.81 ; Panic disorder with agoraphobia F40.01 ; Chronic post-traumatic stress disorder (PTSD) F43.12 and Epilepsy G40.909 [place] [id number] [place] [address] 55380- 4959 Dec, [place] [address] 60254- 5132 Dec, [place] [address] 39133- 8745 Dec, [place] [address] 86686- 8967 Dec, Type 2 diabetes mellitus with hyperglycemia E11.65 ; group home current use of insulin Z79.4 and Lumbago M54.5 [place] [address] 35376- 6591 Dec, [place] [address] 49584- 5561 Dec, [place] [address] 08239- 7161 Dec, [facility] [address] 62931 -7302 Dec, Pain of left leg M79.605 and Pain in right leg M79.604 [place] [id number] [place] [address] 80231- 6183 Dec, [place] [id number] [place] [address] 43458- 3368 Dec, Type 2 diabetes mellitus with hyperglycemia E11.65 [place] [address] 31455- 9732 Dec, [place] [id number] [place] [address] 42075- 1088 Dec, Type 2 diabetes mellitus with hyperglycemia E11.65 ; group home current use of insulin Z79.4 ; Vagina, candidiasis B37.3 and Other chronic pain G89.29 [facility] [address] [address]- 9800 Nov, Panic disorder with agoraphobia F40.01 [facility] [id number] [place] [address] 94883- 2131 Nov, [facility] [id number] [place] [address] 62738- 2040 Nov, [place] [id number] [place] [address] 06178- 5300 Nov, Hypoglycemia E16.2 [place] [id number] [place] [address] 94330- 1103 Nov, [place] [id number] [place] [address] 29406- 4727 Nov, [place] [id number] [place] [address] 70307- 8691 Nov, [place] [id number] [place] [address] 95633- 7929 Nov, Type 2 diabetes mellitus with hyperglycemia E11.65 and termination clerk current use of insulin Z79.4 [place] [id number] [place] [address] 84415- 5718 Nov, Panic disorder with agoraphobia F40.01 ; Bipolar 2 disorder F31.81 ; Chronic post-traumatic stress disorder (PTSD) F43.12 and Epilepsy G40.909 [facility] [address] [address] Nov, Panic disorder with agoraphobia F40.01 [place] [id number] [place] [phone] Oct, [facility] [id number] [place] [address] Oct, [facility] [id number] [place] [address] Oct, Bipolar 2 disorder F31.81 ; Panic disorder with agoraphobia F40.01 and Mood disorder F39 [facility] [address] [address] Oct, Diabetes E11.9 ; Type 2 diabetes mellitus with hyperglycemia E11.65 and group home current use of insulin Z79.4 [facility] [address] [address] Oct, [facility] [address] [address] Sep, [facility] [address] [address] Sep, Bipolar 2 disorder F31.81 and Mood disorder F39 [facility] [address] [address] Sep, [facility] [address] [address] Sep, Uncontrolled type 2 diabetes mellitus without complication, without long-term current use of insulin E11.65 [facility] [facility] [address] [address] Sep, [facility] [id number] [place] [address] Sep, [facility] [id number] [place] [address] Sep, [facility] [id number] [place] [place] [address] 24578- 9764 Sep, [facility] [address] [address]- [address] Sep, Bipolar 2 disorder F31.81 ; Chronic post-traumatic stress disorder (PTSD) F43.12 ; Panic disorder with agoraphobia F40.01 and Epilepsy G40.909 [facility] [id number] [place] [address] 93678- 2611 Sep, Bipolar 2 disorder F31.81 ; PTSD (post-traumatic stress disorder) F43.10 and Panic disorder with agoraphobia F40.01 [facility] [id number] [place] [address] 95209- 5338 07 Sep, 2016 [facility] [id number] [place] [address] 64633- 6236 28 Aug, 2016 History of seizures Z87.898 ; Panic disorder with agoraphobia F40.01 and Bipolar 2 disorder F31.81 [facility] [id number] [place] [address] 61355- 4088 19 Aug, 2016 [facility] [address] 06250- 7703 17 Aug, 2016 [facility] [address] 90895- 7953 Aug, [facility] [address] 93030- 1259 Aug, [facility] [id number] [place] [address] 24064- 3517 11 Aug, 2016 [facility] [id number] [place] [address] 38020- 7742 Aug, [facility] [id number] [place] [address] 10459- 6477 Aug, Hypoglycemia E16.2 and Bilateral impacted cerumen H61.23 [facility] [id number] [place] [address] 25440- 5044 Aug, [facility] [address] 53187- 7336 21 Jul, 2016 [facility] [id number] [place] [address] 91017- 6447 21 Jul, 2016 [facility] [id number] [place] [address] 06682- 6781 Jul, Bipolar 2 disorder F31.81 ; Panic disorder with agoraphobia F40.01 ; PTSD (post-traumatic stress disorder) F43.10 and Epilepsy G40.909 [facility] [id number] [place] [address] [id number]- 8360 Jul, [facility] [id number] [place] [address] 13358- 7984 Jul, Type 2 diabetes mellitus without complications E11.9 and Coughing R05 [facility] [id number] [place] [address] 67946- 0126 Jul, [facility] [id number] [place] [address] 82780- 2781 Jun, [facility] [id number] [place] [address] 32455- 7915 Jun, Bipolar 2 disorder F31.81 ; PTSD (post-traumatic stress disorder) F43.10 and Panic disorder with agoraphobia F40.01 [facility] [id number] [place] [address] 17461- 1206 Jun, [facility] [id number] [place] [address] 88752- 8378 Jun, [facility] [id number] [place] [address] 55512- 9561 Jun, [facility] [id number] [place] [address] 66695- 4005 Jun, Type 2 diabetes mellitus without complications E11.9 and COPD (chronic obstructive pulmonary disease) J44.9 [facility] [address] [id number] May, Dental examination Z01.20 and Dental caries K02.9 [facility] [id number] [place] [address] 14346- 2919 May, Bipolar 2 disorder F31.81 ; PTSD (post-traumatic stress disorder) F43.10 and Panic disorder with agoraphobia F40.01 [facility] [facility] [id number] [place] [address] 83640- 3302 May, Lumbago with sciatica, right side M54.41 ; Other chronic pain G89.29 and Uncontrolled type 2 diabetes mellitus without complication, without long-term current use of insulin E11.65 [facility] [id number] [place] [address] 68840- 4583 May, Chronic bronchitis, unspecified chronic bronchitis type J42 [facility] [id number] [place] [address] 15282- 3479 May, [facility] [id number] [place] [address] 75598- 7167 May, [facility] [id number] [place] [address] 62872- 0996 May, Chest pain, unspecified type R07.9 ; Tobacco use Z72.0 ; Type 2 diabetes mellitus without complications E11.9 ; Essential hypertension I10 ; Hyperlipidemia, unspecified hyperlipidemia type E78.5 ; Obesity (BMI 30- 39.9) E66.9 ; History of hypothyroidism Z86.39 ; Chronic obstructive pulmonary disease, unspecified COPD type J44.9 ; Anxiety F41.9 ; Bilateral claudication of lower limb I73.9 and Bipolar 2 disorder F31.81 [facility] [id number] [place] [address] 17206- 4424 May, Bipolar 2 disorder F31.81 ; Panic disorder with agoraphobia F40.01 and Tobacco abuse Z72.0 [facility] [id number] [place] [address] 95327- 9681 Apr, [facility] [id number] [place] [address] 92279- 7413 Apr, [facility] [id number] [place] [address] 39569- 0798 Apr, [facility] [id number] [place] [address] 16826- 6943 Apr, Bipolar 2 disorder F31.81 ; Panic disorder with agoraphobia F40.01 and PTSD (post-traumatic stress disorder) F43.10 [place] [facility] [address] 25927- 0294 Apr, Chronic bronchitis, unspecified chronic bronchitis type J42 ; Cervical neuritis M54.12 and Thoracic neuritis M54.[address] 81267- 2524 Apr, [facility] [address] 93658- 2406 Apr, Cervicalgia M54.[address] 24694- 4878 Apr, Bipolar 2 disorder F31.81 ; Panic disorder with agoraphobia F40.01 and PTSD (post-traumatic stress disorder) F43.10 [facility] [address] 30881 -0440 Apr, [facility] [address] [place] [address] 02891 -6808 09 Apr, 2016 Cough R05 and Tobacco dependence F17.[address] 12679- 7170 Apr, [address] [id number] [place] [address] 62924- 7445 Apr, [facility] [facility] [address] 92444- 5798 March, Bipolar 2 disorder F31.81 ; Panic disorder with agoraphobia F40.01 and Generalized anxiety disorder F41.[address] 22404- 5342 March, Closed displaced fracture of fifth metatarsal bone of right foot with routine healing, subsequent encounter S92.351D [facility] [address] 14206- 8084 March, Bronchitis J40 [facility] [id number] [place] [address] 62725- 5555 March, [facility] [id number] [place] [address] 05060- 9506 March, [facility] [id number] [place] [address] 01389- 0381 March, Foot pain, right M79.671 ; Cervicalgia M54.2 and 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 mellitus without complication, unspecified jail insulin use status E11.9 [facility] [id number] [place] [address] 20800- 7014 March, Fracture of fifth metatarsal bone of right foot S92.351A [facility] [id number] [place] [address] 22191- 6743 March, [facility] [id number] [place] [address] 21124- 0144 Jan, Fracture of fifth metatarsal bone of right foot S92.351A [facility] [id number] [place] [address] 30781- 1671 Jan, Bipolar 2 disorder F31.81 ; PTSD (post-traumatic stress disorder) F43.10 ; Panic disorder with agoraphobia F40.01 and Epilepsy G40.909 [facility] [id number] [place] [address] 56922- 7888 Jan, History of RI (myocardial infarction) I25.2 and History of high cholesterol Z86.39 [facility] [address] [place] [address] 10520- 1335 Jan, Bipolar 2 disorder F31.81 ; Panic disorder with agoraphobia F40.01 ; Tobacco abuse Z72.0 and PTSD (post-traumatic stress disorder) F43.10 [facility] [id number] [place] [address] 27076- 4173 Jan, Fracture of fifth metatarsal bone of right foot S92.351A [facility] [id number] [place] [address] 20810- 8406 Jan, [facility] [id number] [place] [address] 24842- 5205 Jan, History of high cholesterol Z86.39 [facility] [id number] [place] [address] 86236- 7312 Jan, History of RI (myocardial infarction) I25.2 [facility] [id number] [place] [address] 98462- 1130 Jan, [facility] [id number] [place] [address] 25153- 6670 Dec, Back pain M54.9 ; Diabetes E11.9 ; Right knee pain M25.561 and Chest pain R07.9 [facility] [id number] [place] [address] 64253- 2292 Dec, [place] [facility] [id number] [place] [address] 30059- 8947 Dec, [facility] [id number] [place] [address] 22057- 0927 Dec, Cervicalgia M54.2 [facility] [id number] [place] [address] 76625- 0856 Dec, Bipolar 2 disorder F31.81 ; PTSD (post-traumatic stress disorder) F43.10 ; Panic disorder with agoraphobia F40.01 and Epilepsy G40.909 [facility] [address] [place] [address] 42094- 0228 Dec, Bipolar 2 disorder F31.81 ; PTSD (post-traumatic stress disorder) F43.10 and Panic disorder with agoraphobia F40.01 [facility] [id number] [place] [address] 44881- 9907 Dec, Diabetes E11.9 [facility] [address] [place] [address]- 7852 Dec, [facility] [id number] [place] [address] 96778- 4395 Dec, Other chronic pain G89.29 ; Hepatitis C B19.20 and History of seizures Z87.898 [facility] [id number] [place] [address] 59956- 9678 Dec, [facility] [address] 22992- 0672 Dec, Bipolar 2 disorder F31.81 and Other chronic pain G89.29 [facility] [address] 32678- 5128 Dec, Cervicalgia M54.2 and Diabetes E11.9 [facility] [id number] [place] [address] 45114- 8790 Dec, [facility] [id number] [place] [address] 97109- 7867 Dec, [facility] [id number] [place] [address] 11266- 9508 Dec, [facility] [id number] [place] [address] 70778- 0095 16 Dec, 2015 [facility] [id number] [place] [address] 14981- 1133 Dec, Type 2 diabetes mellitus without complications E11.9 [facility] [id number] [place] [address] 52934- 3589 10 Dec, 2015 [facility] [id number] [place] [address] 34792- 4381 09 Dec, 2015 History of seizures Z87.898 and Hepatitis C B19.20 [facility] [id number] [place] [address] 43645- 3630 08 Dec, 2015 Hepatitis C B19.20 [facility] [id number] [place] [address] 98018- 7630 04 Dec, 2015 [facility] [address] 53708- 5143 04 Dec, 2015 Cervicalgia M54.2 ; COPD (chronic obstructive pulmonary disease) J44.9 and Hepatitis C B19.[address] 48711- 8837 02 Dec, 2015 Bipolar 2 disorder F31.81 ; History of hypertension Z86.79 ; History of anxiety Z86.59 ; Panic disorder with agoraphobia F40.01 and Epilepsy G40.909 [place] [address] 36421- 5868 Nov, [facility] [address] 12807- 1043 Nov, [address] 11648- 3696 Nov, History of seizures Z87.898 ; OAB (overactive bladder) N32.81 ; Lumbago M54.5 ; Other chronic pain G89.29 ; Cervicalgia M54.2 ; Tobacco abuse Z72.0 ; Tobacco abuse counseling Z71.6 and Impaired fasting glucose R73.01 [facility] [id number] [place] [address] 45870- 5389 Nov, Bipolar 2 disorder F31.81 ; PTSD (post-traumatic stress disorder) F43.10 ; History of anxiety Z86.59 ; History of COPD Z87.09 ; Panic disorder with agoraphobia F40.01 and Moderate depressed bipolar I disorder F31.32 [facility] [address] 48071- 7216 12 Nov, 2015 PTSD (post-traumatic stress disorder) F43.10 [facility] [id number] [place] [address] [id number] 11 Nov, 2015 Dental examination Z01.20 and Dental caries K02.9 [facility] [address] [place] [address] 60168- 8086 08 Nov, 2015 History of hypertension Z86.79 ; History of hypothyroidism Z86.39 ; History of high cholesterol Z86.39 ; History of COPD Z87.09 and Overactive bladder N32.81 [facility] [id number] [place] [address] 18921- 3959 Nov, Bipolar 2 disorder F31.81 and PTSD (post-traumatic stress disorder) F43.10 [facility] [id number] [place] [address] 22698- 0020 Nov, PTSD (post-traumatic stress disorder) F43.10 ; Panic disorder with agoraphobia F40.01 ; Epilepsy G40.909 and Moderate depressed bipolar I disorder F31.32 [place] [id number] [place] [address] 36431- 6385 Nov, [address] [id number] [place] [address] 00015- 9337 Nov, [facility] [id number] [place] [address] 31229- 0492 Oct, [place] [id number] [place] [address] 13050- 8413 Oct, Generalized anxiety disorder F41.1 ; Major depression, recurrent F33.9 and PTSD (post-traumatic stress disorder) F43.[address] [place] [address] 61752- 5566 Oct, Elevated fasting glucose R73.01 [facility] [id number] [place] [address] 36932- 9200 Oct, Elevated fasting glucose R73.01 [facility] [id number] [place] [address] 12003- 0300 Oct, History of COPD Z87.09 [facility] [id number] [place] [address] 73595- 5234 Oct, General medical exam Z00.00 ; History of hypertension Z86.79 ; History of hypothyroidism Z86.39 ; History of hepatitis Z86.19 ; History of high cholesterol Z86.39 and History of seizures Z87.898 [facility] [address] [address]- 1655 Oct, General medical exam Z00.00 ; History of hypertension Z86.79 ; History of hypothyroidism Z86.39 ; Bipolar 2 disorder F31.81 ; PTSD ( post-traumatic stress disorder) F43.10 ; History of hepatitis Z86.19 ; History of high cholesterol Z86.39 ; History of anxiety Z86.59 ; History of seizures Z87.898 ; History of RI (myocardial infarction) I25.2 and History of COPD Z87.09 [facility] [address] [address]- 7783 Oct, Generalized anxiety disorder F41.1 ; Depression F32.9 and PTSD (post-traumatic stress disorder) F43.10 [facility] [address] [address]- 7943 Jan, [facility] [address] [address]- 7025 Jan, [facility] [address] [address]- 3000 Jun, [facility] [address] [place] [id number] Jun, [facility] [address] [address]- 9228 May, [facility] [address] [address]- 1514 May, [facility] [address] [place] [id number] May, [facility] [address] [address]- 8262 May, [facility] [address] [place] [id number] May, [facility] [id number] [address]- 4600 May, IMMUNIZATIONS No Known Immunizations SOCIAL HISTORY Never Assessed REASON FOR VISIT BS f/u/case mgmt PLAN OF CARE VITAL SIGNS MEDICATIONS Medication Instructions Dosage Frequency Start Date End Date Duration Status NovoLog 100 UNIT/ML DX E11.9 3 times a day before meals Inject 40 units 12 Dec, 2017 Active Levemir 100 UNIT/ML Subcutaneous 2 times a day Inject 65 units 12h 14 Dec, 2017 Active RESULTS No [...]
--- OUTSIDE RECORDS SUMMARY | 2019-01-26 08:00 | XMS REPORT ---
Author Author GERARDO KISER [facility] Address [address] [place] [address] Care Team Providers Care Structural Engineering Project Manager Name Role Phone MARGI GERARDO Unavailable PROBLEMS Type Condition ICD9-CM Code [id number] Code Onset Dates Condition Status SNOMED Code Problem OAB (overactive bladder) N32.81 Active 196989839 Problem Epilepsy G40.909 Active 37786899 Problem Cervicalgia M54.2 Active 17014235 Problem Other chronic pain G89.29 Active 54937312 Problem Tobacco abuse Z72.0 Active 89066506 Problem Lumbago M54.5 Active 837663061 Problem Hepatitis C B19.20 Active 78307939 Problem COPD (chronic obstructive pulmonary disease) J44.9 Active 72924009 Problem Diabetes E11.9 Active 32810990 Problem Bipolar I disorder with duy F31.10 Active 08476536 Problem Type 2 diabetes mellitus without complications E11.9 Active 531448702 Problem Stress incontinence of urine N39.3 Active 63772029 Problem Bilateral claudication of lower limb I73.9 Active 586954146 Problem Seasonal allergic rhinitis due to other allergic trigger J30.89 Active 952124375 Problem Hyperlipidemia, unspecified hyperlipidemia type E78.5 Active 69787287 Problem Hypertension, unspecified type I10 Active 18771369 Problem Chronic tension-type headache, not intractable G44.229 Active 786868823 Problem 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 mellitus without complication, without long -term current use of insulin E11.9 Active 151850440 Problem Type 2 diabetes mellitus with hyperglycemia E11.65 Active 605572640 Problem Chronic post-traumatic stress disorder (PTSD) F43.12 Active 102060976 Problem History of hypothyroidism Z86.39 Active 834395728 Problem Hypoglycemia E16.2 Active 068360684 Problem El's esophageal ulceration K22.10 Active 719296908 Problem Bipolar affective disorder, currently depressed, mild F31.31 Active 872529298 Problem Irritable bowel syndrome with diarrhea K58.0 Active 080576458 Problem Stress incontinence N39.3 Active 63280241 Problem History of hypertension Z86.79 Active 685238520 Problem Uncontrolled type 2 diabetes mellitus without complication, without long-term current use of insulin E11.65 Active 647509087 Problem Panic disorder with agoraphobia F40.01 Active 17107768 Problem Type 2 diabetes mellitus with hyperglycemia E11.65 Active 565660795 Problem History of seizures Z87.898 Active 992613535 Problem skilled nursing current use of insulin Z79.4 Active 122859630 Problem History of CA (myocardial infarction) I25.2 Active 303591745 Problem Mood disorder F39 Active 53721111 Problem Bipolar 2 disorder F31.81 Active 78630100 Problem Gastritis and duodenitis K29.90 Active 791808034 Problem History of high cholesterol Z86.39 Active 281248232 Problem Bipolar I disorder with mood-congruent psychotic features F31.9 Active 991078883 Problem Hypertension, benign I10 Active 23373294 Problem Primary insomnia F51.01 Active 9764582 ALLERGIES No Information ENCOUNTERS Encounter Location Date Diagnosis [facility] [id number] [place] [address] 48970- 2964 14 Jun, 2018 [facility] [address] [place] [address] 25281- 3492 13 Jun, 2018 [facility] [address] [place] [address] 66347- 2349 09 Jun, 2018 Type 2 diabetes mellitus with hyperglycemia E11.65 [facility] [address] [place] [address] 07820- 8984 08 Jun, 2018 Uncontrolled type 2 diabetes mellitus with hyperglycemia E11.65 [facility] [address] [place] [address] 30207- 9239 06 Jun, 2018 [facility] [address] [place] [address] 55735- 3450 May, Lumbago M54.5 [facility] [address] [id number] May, [facility] [address] 94686- 7311 May, [facility] [address], [place] [address]- 3298 May, [facility] [address], [place] [address]- 8676 May, [facility] [address], [place] [address]- 4522 May, [facility] [address] [place] [address] 95445- 7921 May, [facility] [address] [place] [address] 82275- 6727 May, [facility] [address] [place] [address] 82972- 1532 May, Lumbago M54.5 [facility] [address] [place] [address] 78715- 8428 May, [facility] [address], [place] [address] [address], [address] of the chest R93.8 [facility] [address] [place] [address] 01442- 6819 Apr, Bipolar 2 disorder F31.81 ; Chronic post-traumatic stress disorder (PTSD) F43.12 and Panic disorder with agoraphobia F40.01 [facility] [address], [place] [address] [address] Apr, [address] of the chest R93.8 [facility] [address], [place] [address]- [address] Apr, [address] of the chest R93.8 [facility] [address], [place] [address]- 8316 Apr, [facility] [address], [place] [address]- 3739 Apr, Type 2 diabetes mellitus with hyperglycemia E11.65 [facility] [address] [place] [address] 51483- 7768 11 Apr, 2018 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 mellitus without complication, without long-term current use of insulin E11.9 ; Watery eyes H04.203 ; Low back pain M54.5 ; Other chronic pain G89.29 ; Chronic tension-type headache, not intractable G44.229 ; Uncontrolled type 2 diabetes mellitus without complication , without long-term current use of insulin E11.65 and Bronchitis J40 [facility] [address] 93701- 4694 Apr, [facility] [address] 31741- 7931 Apr, Lumbago M54.5 [facility] [address] 62628- 5822 March, [facility] [address] 59270 -0629 March, Cough R05 ; Pneumonia due to infectious organism, unspecified laterality, unspecified part of lung J18.9 and Non-intractable vomiting with nausea, unspecified vomiting type R11.2 [facility] [address] 55351- 3805 March, Bronchitis J40 [facility] [address] 22224- 2907 March, [facility] [address] 67051- 4921 March, El's esophageal ulceration K22.10 and Type 2 diabetes mellitus with hyperglycemia E11.65 [facility] [address] 94254- 8958 March, Panic disorder with agoraphobia F40.01 ; Chronic post- traumatic stress disorder (PTSD) F43.12 and Bipolar 2 disorder F31.81 [facility] [address] 30033- 8170 March, Type 2 diabetes mellitus with hyperglycemia E11.65 [facility] [address] [place] [address] 09826- 1258 March, [facility] [address] [place] [address] 59335- 8507 March, Lumbago M54.5 [facility] [address] [place] [address] 20840- 9894 March, [facility] [address] [place] [address] 82653- 9390 March, Irritable bowel syndrome with diarrhea K58.0 ; Primary insomnia F51.01 ; Type 2 diabetes mellitus with hyperglycemia E11.65 and 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 [facility] [address] [place] [address] 46324- 9910 March, [facility] [address] [place] [address] 69423- 1590 Jan, [facility] [address] [place] [address] 83590- 4884 Jan, [facility] [address] [place] [address] 42440- 1397 Jan, [facility] [address] [place] [address] 76003- 3604 Jan, [facility] [address] [place] [address] 15606- 6195 Jan, Dizziness R42 [facility] [address] [place] [address] 20536- 1358 Jan, Bipolar affective disorder, currently depressed, mild F31.31 ; Panic disorder with agoraphobia F40.01 and Chronic post-traumatic stress disorder (PTSD) F43.12 [facility] [address] [place] [address] 95481- 8066 Jan, Dizziness R42 [facility] [address] [place] [address]- 8723 11 Jan, 2018 Chest pain, unspecified type R07.9 ; Exertional dyspnea R06.09 ; Hypertension, unspecified type I10 and Hyperlipidemia, unspecified hyperlipidemia type E78.5 [facility] [address] [place] [address] 39639- 1816 Jan, [facility] [address] [place] [address] 61002- 0783 Jan, Lumbago M54.5 [facility] [address] [place] [address] 71194- 0198 04 Jan, 2018 El's esophageal ulceration K22.10 ; Blister (nonthermal ) of oral cavity, initial encounter S00.522A ; Local infection of the skin and subcutaneous tissue, unspecified L08.9 ; Type 2 diabetes mellitus with hyperglycemia E11.65 ; 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 and Stress incontinence N39.3 [facility] [address] [place] [address] 77916- 3854 27 Dec, 2017 [facility] [address] [place] [address] 17458- 1835 27 Dec, 2017 [facility] [address] [place] [address] 18752- 5458 19 Dec, 2017 [facility] [id number] [place] [address] [id number] 16 Dec, 2017 Dental examination Z01.20 [facility] [address] [place] [address] 66452- 3861 15 Dec, 2017 Acute pain of right knee M25.561 [facility] [address] 92698- 1712 14 Dec, 2017 [facility] [address] [place] [address] 49679- 3974 14 Dec, 2017 [facility] [address] 06449- 9070 14 Dec, 2017 Lumbago M54.5 ; Acute pain of right knee M25.561 and Seasonal allergic rhinitis due to other allergic trigger J30.89 [facility] [address] [place] [address] 58069- 6640 Dec, Type 2 diabetes mellitus with hyperglycemia E11.65 [facility] [address] [place] [address] 18019- 5483 Dec, [facility] [address] 81806- 2214 Dec, [facility] [address] [place] [address] 85175- 1404 Dec, [facility] [address] [place] [address] 15770- 0583 Dec, [facility] [address] [place] [address] 06888- 5696 Dec, Chronic post-traumatic stress disorder (PTSD) F43.12 and Panic disorder with agoraphobia F40.01 [facility] [address] [place] [address] 27907- 6100 13 Dec, 2017 Low back pain M54.5 [facility] [address] [place] [address] 72745- 7277 12 Dec, 2017 Type 2 diabetes mellitus with hyperglycemia E11.65 ; skilled nursing current use of insulin Z79.4 ; Low back pain M54.5 ; Encounter for therapeutic drug level monitoring Z51.81 and Other chronic pain G89.29 [facility] [address] [place] [address] 18631- 4249 09 Dec, 2017 Coughing R05 [facility] [address] [place] [address] 30386- 4826 09 Dec, 2017 [facility] [id number] [place] [address] [id number] 07 Dec, 2017 Dental examination Z01.20 [facility] [address] [place] [address]- 4367 Nov, Type 2 diabetes mellitus without complications E11.9 and Encounter for therapeutic drug level monitoring Z51.81 [facility] [address] [place] [address] 14233- 5832 Nov, [facility] [address] [place] [address] 37042- 7034 Oct, Type 2 diabetes mellitus without complications E11.9 [facility] [address] [place] [address] 40051- 7567 Oct, Type 2 diabetes mellitus with hyperglycemia E11.65 [facility] [address] [place] [address] 23095- 1924 Aug, Type 2 diabetes mellitus without complications E11.9 [facility] [address] [place] [address] 16425- 8102 Aug, Type 2 diabetes mellitus without complications E11.9 ; Hypoglycemia E16.2 ; Lumbago M54.5 ; Stress incontinence of urine N39.3 and History of CA (myocardial infarction) I25.2 [facility] [address] [place] [address] 60886- 5398 Jun, [facility] [address] [place] [address] 41974- 7397 May, [facility] [address] [place] [address] 37211- 6641 Apr, Panic disorder with agoraphobia F40.01 [facility] [address] [place] [address] 09164- 0266 Apr, Panic disorder with agoraphobia F40.01 [facility] [address] [place] [address] 31405- 7301 Apr, [facility] [address] [place] [address] 86476- 9167 March, Other chronic pain G89.29 [facility] [address], [place] [address]- 8661 March, [facility] [address], [place] [address]- 2616 March, [facility] [address] [address]- 1391 March, [facility] [address] [address]- 9392 March, [facility] [address] [place] [address] 43672- 1783 March, Type 2 diabetes mellitus without complications E11.9 [facility] [address] [place] [address] 49632- 4931 March, Diarrhea, unspecified type R19.7 [facility] [address] [place] [address] 15604- 1665 March, Bipolar 2 disorder F31.81 ; Chronic post-traumatic stress disorder (PTSD) F43.12 and Type 2 diabetes mellitus with hyperglycemia E11.65 [facility] [address], [place] [address]- 6942 March, [facility] [address], [place] [address]- 5765 March, [facility] [address], [place] [address]- 6811 March, Hypertension, benign I10 ; Type 2 diabetes mellitus with hyperglycemia E11.65 ; Hepatitis C B19.20 ; Gastritis and duodenitis K29.90 and Dysuria R30.0 [facility] [address], [place] [address]- 4747 March, Hypertension, benign I10 ; Type 2 diabetes mellitus with hyperglycemia E11.65 ; Hepatitis C B19.20 ; Gastritis and duodenitis K29.90 and Dysuria R30.0 [facility] [address], [place] [address]- 3852 March, Panic disorder with agoraphobia F40.01 ; Chronic post- traumatic stress disorder (PTSD) F43.12 ; Epilepsy G40.909 and Bipolar I disorder with mood-congruent psychotic features F31.9 [facility] [address] [place] [address] 03971- 5225 March, [facility] [address] [place] [address] 27335- 0632 March, Type 2 diabetes mellitus with hyperglycemia E11.65 [facility] [address] [place] [address] 95665- 2949 18 Jan, 2017 Bipolar I disorder with duy F31.10 [facility] [address] [place] [address] 85868- 9874 Jan, Bipolar 2 disorder F31.81 ; Chronic post-traumatic stress disorder (PTSD) F43.12 and Type 2 diabetes mellitus with hyperglycemia E11.65 [facility] [address] [place] [address] 85931- 4883 17 Jan, 2017 [facility] [address] [place] [address] 84827- 8271 Jan, [facility] [address] [place] [address] 24384- 0970 14 Jan, 2017 Panic disorder with agoraphobia F40.01 [facility] [address] [place] [address] 71637- 4999 Jan, Panic disorder with agoraphobia F40.01 ; Bipolar I disorder with mood-congruent psychotic features F31.9 ; Chronic post-traumatic stress disorder (PTSD) F43.12 and Epilepsy G40.909 [facility] [address] [place] [address] 31326- 3223 Jan, [facility] [address] [place] [address] 37438- 4438 Jan, [facility] [address] [place] [address] 03030- 6076 Jan, Type 2 diabetes mellitus without complications E11.9 and Hypoglycemia E16.2 [facility] [address] [place] [address] 98626- 8617 07 Jan, 2017 Type 2 diabetes mellitus without complications E11.9 ; Primary insomnia F51.01 and Hypertension, benign I10 [facility] [address] [place] [address] 71671- 1676 Jan, [facility] [id number] [place] [address] [id number] Jan, [facility] [address] [place] [address] 57363- 7420 Dec, Type 2 diabetes mellitus with hyperglycemia E11.65 [facility] [address] [place] [address] 82361- 8194 Dec, [facility] [address] [place] [address] 92479- 3778 Dec, Bipolar 2 disorder F31.81 ; Panic disorder with agoraphobia F40.01 ; Chronic post-traumatic stress disorder (PTSD) F43.12 and Epilepsy G40.909 [facility] [address] [place] [address] 56807- 9913 Dec, [facility] [address] [place] [address] 58865- 1899 Dec, [facility] [address] [place] [address] 61143- 6109 Dec, Bipolar 2 disorder F31.81 ; Panic disorder with agoraphobia F40.01 ; Chronic post-traumatic stress disorder (PTSD) F43.12 and Epilepsy G40.909 [facility] [address] [place] [address] 16297- 3348 Dec, [facility] [address] [place] [address] 21858- 0537 Dec, [facility] [address] [place] [address] 47174- 5368 Dec, [facility] [address] [place] [address] 41587- 5804 Dec, Type 2 diabetes mellitus with hyperglycemia E11.65 ; skilled nursing current use of insulin Z79.4 and Lumbago M54.5 [facility] [address] [place] [address] 15787- 1346 Dec, [facility] [address] 21870- 2098 Dec, [facility] [address] [place] [address] 33885- 3454 Dec, [facility] [address] [place] [address] 90469 -4310 Dec, Pain of left leg M79.605 and Pain in right leg M79.604 [facility] [address] [place] [address] 25081- 6887 Dec, [facility] [address] [place] [address] 85674- 2070 Dec, Type 2 diabetes mellitus with hyperglycemia E11.65 [facility] [address] [place] [address] 09231- 1563 Dec, [facility] [address] [place] [address] 61806- 2108 Dec, Type 2 diabetes mellitus with hyperglycemia E11.65 ; 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 ; Vagina, candidiasis B37.3 and Other chronic pain G89.29 [facility] [address] [place] [address] 08776- 3582 Nov, Panic disorder with agoraphobia F40.01 [facility] [address] [place] [address] 47162- 7897 Nov, [facility] [address] 66324- 9197 Nov, [facility] [address], [place] [address]- 6043 Nov, Hypoglycemia E16.2 [facility] [address] [place] [address] 21979- 8418 Nov, [facility] [address] [place] [address] 40647- 9065 Nov, [facility] [address] [place] [address] 64093- 2709 Nov, [facility] [address] [place] [address] 96343- 8692 Nov, Type 2 diabetes mellitus with hyperglycemia E11.65 and 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 [facility] [address] [place] [address] 63189- 6369 Nov, Panic disorder with agoraphobia F40.01 ; Bipolar 2 disorder F31.81 ; Chronic post-traumatic stress disorder (PTSD) F43.12 and Epilepsy G40.909 [facility] [address] [place] [address] 94955- 4440 Nov, Panic disorder with agoraphobia F40.01 [facility] [address] [place] [address] 21359- 0642 Oct, [facility] [address], [place] [address]- 0467 Oct, [facility] [address] [place] [address] 14308- 1330 Oct, Bipolar 2 disorder F31.81 ; Panic disorder with agoraphobia F40.01 and Mood disorder F39 [facility] [address] [place] [address] 05030- 2708 Oct, Diabetes E11.9 ; Type 2 diabetes mellitus with hyperglycemia E11.65 and 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 [facility] [address] [place] [address] 75101- 1132 Oct, [facility] [address] [place] [address] 61927- 3977 Sep, [facility] [address] [place] [address] 38629- 6764 Sep, Bipolar 2 disorder F31.81 and Mood disorder F39 [facility] [address] 23424- 5641 Sep, [facility] [address] [place] [address] 99825- 2856 Sep, Uncontrolled type 2 diabetes mellitus without complication, without long-term current use of insulin E11.65 [facility] [address] [place] [address] 74563- 1552 Sep, [facility] [address] [place] [address] 59505- 1936 Sep, [facility] [address] [place] [address] 62109- 3785 Sep, [facility] [address] [place] [address] 20854- 4732 Sep, [facility] [address] [place] [address] 99994- 2322 Sep, Bipolar 2 disorder F31.81 ; Chronic post-traumatic stress disorder (PTSD) F43.12 ; Panic disorder with agoraphobia F40.01 and Epilepsy G40.909 [facility] [address] [place] [address] 54646- 7888 11 Sep, 2016 Bipolar 2 disorder F31.81 ; PTSD (post-traumatic stress disorder) F43.10 and Panic disorder with agoraphobia F40.01 [facility] [address] [place] [address] 31748- 8919 07 Sep, 2016 [facility] [address] [place] [address] 51329- 6796 Aug, History of seizures Z87.898 ; Panic disorder with agoraphobia F40.01 and Bipolar 2 disorder F31.81 [facility] [address] [place] [address] [id number] Aug, [facility] [id number] [place] [address] [id number] Aug, [facility] [address] [id number]- [id number] Aug, [facility] [id number] [place] [address] [id number]- [id number] Aug, [facility] [id number] [place] [address] [id number] Aug, [facility] [id number] [place] [address] 13683- 7739 Aug, [facility] [id number] [place] [address] 93255- 1017 Aug, Hypoglycemia E16.2 and Bilateral impacted cerumen H61.23 [facility] [id number] [place] [address] 85770- 4409 Aug, [facility] [id number] [place] [address] 82337- 1460 Jul, [facility] [id number] [place] [address] 36494- 8842 Jul, [facility] [id number] [place] [address] 55173- 2262 15 Jul, 2016 Bipolar 2 disorder F31.81 ; Panic disorder with agoraphobia F40.01 ; PTSD (post-traumatic stress disorder) F43.10 and Epilepsy G40.909 [facility] [id number] [place] [address] 27583- 0518 12 Jul, 2016 [facility] [id number] [place] [address] 76399- 4737 Jul, Type 2 diabetes mellitus without complications E11.9 and Coughing R05 [facility] [address] [place] [address] 84866- 9434 Jul, [facility] [id number] [place] [address] 46887- 6396 Jun, [facility] [id number] [place] [address] 53179- 0370 Jun, Bipolar 2 disorder F31.81 ; PTSD (post-traumatic stress disorder) F43.10 and Panic disorder with agoraphobia F40.01 [facility] [id number] [place] [address] 65027- 2735 Jun, [facility] [id number] [place] [address] 16173- 6186 Jun, [facility] [id number] [place] [address] 40458- 8473 Jun, [facility] [id number] [place] [address] 00441- 8083 Jun, Type 2 diabetes mellitus without complications E11.9 and COPD (chronic obstructive pulmonary disease) J44.9 [facility] [id number] [place] [address] [id number] May, Dental examination Z01.20 and Dental caries K02.9 [facility] [address] [place] [address] 47052- 7057 May, Bipolar 2 disorder F31.81 ; PTSD (post-traumatic stress disorder) F43.10 and Panic disorder with agoraphobia F40.01 [facility] [id number] [place] [address] 66804- 8949 May, Lumbago with sciatica, right side M54.41 ; Other chronic pain G89.29 and Uncontrolled type 2 diabetes mellitus without complication, without long-term current use of insulin E11.65 [facility] [id number] [place] [address] 02961- 7620 May, Chronic bronchitis, unspecified chronic bronchitis type J42 [facility] [id number] [place] [address] 05665- 2933 May, [facility] [id number] [place] [address] 89080- 5071 May, [facility] [id number] [place] [address] 34398- 0562 May, Chest pain, unspecified type R07.9 ; Tobacco use Z72.0 ; Type 2 diabetes mellitus without complications E11.9 ; Essential hypertension I10 ; Hyperlipidemia, unspecified hyperlipidemia type E78.5 ; Obesity (BMI 30- 39.9) E66.9 ; History of hypothyroidism Z86.39 ; Chronic obstructive pulmonary disease, unspecified COPD type J44.9 ; Anxiety F41.9 ; Bilateral claudication of lower limb I73.9 and Bipolar [address] disorder [address] 28251- 3151 May, Bipolar 2 disorder F31.81 ; Panic disorder with agoraphobia F40.01 and Tobacco abuse Z72.0 [id number] [place] [address] 62285- 8078 Apr, [id number] [place] [address] 85598- 1620 Apr, [id number] [place] [address] 28822- 3287 Apr, [id number] [place] [address] 69664- 3607 Apr, Bipolar 2 disorder F31.81 ; Panic disorder with agoraphobia F40.01 and PTSD (post-traumatic stress disorder) F43.10 [id number] [place] [address] 34471- 4583 Apr, Chronic bronchitis, unspecified chronic bronchitis type J42 ; Cervical neuritis M54.12 and Thoracic neuritis M54.14 [address] [address] 5913 15 Apr, 2016 [facility] [id number] [place] [address] 60055- 3710 15 Apr, 2016 Cervicalgia M54.2 [facility] [id number] [place] [address] 34846- 4535 14 Apr, 2016 Bipolar 2 disorder F31.81 ; Panic disorder with agoraphobia F40.01 and PTSD (post-traumatic stress disorder) F43.10 [facility] [id number] [place] [address] 39127 -0855 13 Apr, 2016 [facility] [id number] [place] [address] 70413 -7859 09 Apr, 2016 Cough R05 and Tobacco dependence F17.200 [facility] [address] [place] [address] 69177- 3179 06 Apr, 2016 [facility] [address] [place] [address] 81801- 9617 06 Apr, 2016 [facility] [id number] [place] [address] 40424- 0730 March, Bipolar 2 disorder F31.81 ; Panic disorder with agoraphobia F40.01 and Generalized anxiety disorder F41.1 [facility] [id number] [place] [address] 07562- 5206 March, Closed displaced fracture of fifth metatarsal bone of right foot with routine healing, subsequent encounter S92.351D [facility] [address] [place] [address] 05129- 4789 March, Bronchitis J40 [facility] [id number] [place] [address] 78015- 9923 March, [facility] [address] [place] [address] 60621- 1688 March, [facility] [address] [place] [address] 95308- 7957 March, Foot pain, right M79.671 ; Cervicalgia M54.2 and 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 mellitus without complication, unspecified mcfp insulin use status E11.9 [facility] [address] [place] [address] 64107- 4290 March, Fracture of fifth metatarsal bone of right foot S92.351A [facility] [address] 90314- 0199 March, [facility] [address] 95438- 0511 Jan, Fracture of fifth metatarsal bone of right foot S92.351A [facility] [address] 98601- 9473 Jan, Bipolar 2 disorder F31.81 ; PTSD (post-traumatic stress disorder) F43.10 ; Panic disorder with agoraphobia F40.01 and Epilepsy G40.909 [facility] [id number] [place] [address] 30422- 5938 Jan, History of CA (myocardial infarction) I25.2 and History of high cholesterol Z86.39 [facility] [id number] [place] [address] 05453- 1843 Jan, Bipolar 2 disorder F31.81 ; Panic disorder with agoraphobia F40.01 ; Tobacco abuse Z72.0 and PTSD (post-traumatic stress disorder) F43.10 [facility] [id number] [place] [address] 51405- 3758 Jan, Fracture of fifth metatarsal bone of right foot S92.351A [facility] [address] 79982- 4013 Jan, [address] 96913- 9012 Jan, History of high cholesterol Z86.39 [facility] [address] 11934- 1889 Jan, History of CA (myocardial infarction) I25.2 [facility] [id number] [place] [address] 49700- 4086 Jan, [facility] [address] [place] [address] 10395- 7938 Dec, Back pain M54.9 ; Diabetes E11.9 ; Right knee pain M25.561 and Chest pain R07.9 [facility] [address] 72482- 2415 Dec, [facility] [address] 32831- 2789 Dec, [facility] [address] 98304- 2518 Dec, Cervicalgia M54.2 [facility] [address] 51915- 3284 Dec, Bipolar 2 disorder F31.81 ; PTSD (post-traumatic stress disorder) F43.10 ; Panic disorder with agoraphobia F40.01 and Epilepsy G40.909 [id number] [place] [address] 06413- 9763 Dec, Bipolar 2 disorder F31.81 ; PTSD (post-traumatic stress disorder) F43.10 and Panic disorder with agoraphobia F40.01 [facility] [id number] [place] [address] 55305- 1705 Dec, Diabetes E11.9 [facility] [id number] [place] [address] 96472- 1987 Dec, [facility] [address] 16418- 4039 Dec, Other chronic pain G89.29 ; Hepatitis C B19.20 and History of seizures Z87.[address] 11056- 4759 Dec, [facility] [id number] [place] [address] 39830- 6131 Dec, Bipolar 2 disorder F31.81 and Other chronic pain G89.29 [facility] [address] [place] [address] 84722- 8457 Dec, Cervicalgia M54.2 and Diabetes E11.9 [facility] [address] 16873- 0486 Dec, [facility] [id number] [place] [address] 07539- 6029 Dec, [facility] [address] 30519- 5523 Dec, [facility] [address] 35317- 6678 Dec, [facility] [id number] [place] [address] 25279- 6963 Dec, Type 2 diabetes mellitus without complications E11.9 [facility] [id number] [place] [address] 43792- 9082 10 Dec, 2015 [facility] [address] [place] [address] 27105- 4250 09 Dec, 2015 History of seizures Z87.898 and Hepatitis C B19.20 [facility] [id number] [place] [address] 07968- 0959 08 Dec, 2015 Hepatitis C B19.20 [facility] [id number] [place] [address] 20348- 3716 Dec, [facility] [address] [place] [address] 42684- 4927 04 Dec, 2015 Cervicalgia M54.2 ; COPD (chronic obstructive pulmonary disease) J44.9 and Hepatitis C B19.20 [facility] [address] 64694- 0923 Dec, Bipolar 2 disorder F31.81 ; History of hypertension Z86.79 ; History of anxiety Z86.59 ; Panic disorder with agoraphobia F40.01 and Epilepsy G40.909 [id number] [place] [address] 25653- 6630 Nov, [address] 85440- 2677 Nov, [address] 42206- 9430 Nov, History of seizures Z87.898 ; OAB (overactive bladder) N32.81 ; Lumbago M54.5 ; Other chronic pain G89.29 ; Cervicalgia M54.2 ; Tobacco abuse Z72.0 ; Tobacco abuse counseling Z71.6 and Impaired fasting glucose R73.[address] 19169- 8829 Nov, Bipolar 2 disorder F31.81 ; PTSD (post-traumatic stress disorder) F43.10 ; History of anxiety Z86.59 ; History of COPD Z87.09 ; Panic disorder with agoraphobia F40.01 and Moderate depressed bipolar I disorder F31.32 [id number] [place] [address] 28654- 0583 12 Nov, 2015 PTSD (post-traumatic stress disorder) F43.10 [facility] [id number] [place] [address] [id number] 11 Nov, 2015 Dental examination Z01.20 and Dental caries K02.9 [address] [place] [id number] [place] [address] 45846- 6559 08 Nov, 2015 History of hypertension Z86.79 ; History of hypothyroidism Z86.39 ; History of high cholesterol Z86.39 ; History of COPD Z87.09 and Overactive bladder N32.81 [id number] [place] [address] 26963- 8612 Nov, Bipolar 2 disorder F31.81 and PTSD (post-traumatic stress disorder) F43.10 [facility] [id number] [place] [address] 10514- 0955 Nov, PTSD (post-traumatic stress disorder) F43.10 ; Panic disorder with agoraphobia F40.01 ; Epilepsy G40.909 and Moderate depressed bipolar I disorder F31.32 [facility] [address] 46268- 7497 Nov, [facility] [id number] [place] [address] 57281- 4233 Nov, [facility] [address] 44600- 7040 Oct, [facility] [address] 82357- 3816 Oct, Generalized anxiety disorder F41.1 ; Major depression, recurrent F33.9 and PTSD (post-traumatic stress disorder) F43.10 [facility] [address] [place] [address] 09949- 4566 Oct, Elevated fasting glucose R73.01 [facility] [address] [place] [address] 38560- 7025 Oct, Elevated fasting glucose R73.01 [facility] [address] [place] [address] 30850- 5926 Oct, History of COPD Z87.09 [facility] [address] [place] [address] 85860- 5359 15 Oct, 2015 General medical exam Z00.00 ; History of hypertension Z86.79 ; History of hypothyroidism Z86.39 ; History of hepatitis Z86.19 ; History of high cholesterol Z86.39 and History of seizures Z87.898 [facility] [address] [place] [address] 89617- 3690 10 Oct, 2015 General medical exam Z00.00 ; History of hypertension Z86.79 ; History of hypothyroidism Z86.39 ; Bipolar 2 disorder F31.81 ; PTSD ( post-traumatic stress disorder) F43.10 ; History of hepatitis Z86.19 ; History of high cholesterol Z86.39 ; History of anxiety Z86.59 ; History of seizures Z87.898 ; History of CA (myocardial infarction) I25.2 and History of COPD Z87.09 [facility] [address] [address]- 1828 Oct, Generalized anxiety disorder F41.1 ; Depression F32.9 and PTSD (post-traumatic stress disorder) F43.10 [facility] [address]- 7583 Jan, [facility] [id number] [place] [address] 05910- 1472 Jan, [facility] [id number] [place] [address] 52295- 3583 Jun, [facility] [address] [place] [id number] Jun, [facility] [address] [place] [address] 83045- 2060 May, [facility] [id number] [place] [address] [id number]- 4368 May, [address] [id number] May, [facility] [address] [place] [address] 16702- 0888 May, [address] [id number] May, [facility] [address] [address]- 1548 May, IMMUNIZATIONS No Known Immunizations SOCIAL HISTORY Never Assessed REASON FOR VISIT high BS PLAN OF CARE VITAL SIGNS MEDICATIONS Medication [...]
--- OUTSIDE RECORDS SUMMARY | 2019-01-26 08:01 | XMS REPORT ---
Author Author GERARDO KISER [facility] Address [address] [place] [address] Care Team Providers Care Money Market Dealer Name Role Phone MARGI GERARDO Unavailable PROBLEMS Type Condition ICD9-CM Code KQT30-GY Code Onset Dates Condition Status SNOMED Code Problem OAB (overactive bladder) N32.81 Active 240752166 Problem Epilepsy G40.909 Active 13783485 Problem Cervicalgia M54.2 Active 01142730 Problem Other chronic pain G89.29 Active 46615407 Problem Tobacco abuse Z72.0 Active 85729608 Problem Lumbago M54.5 Active 870042285 Problem Hepatitis C B19.20 Active 22940380 Problem COPD (chronic obstructive pulmonary disease) J44.9 Active 19156321 Problem Diabetes E11.9 Active 13254500 Problem Bipolar I disorder with duy F31.10 Active 19554806 Problem Type 2 diabetes mellitus without complications E11.9 Active 598639395 Problem Stress incontinence of urine N39.3 Active 11188046 Problem Bilateral claudication of lower limb I73.9 Active 800444818 Problem Seasonal allergic rhinitis due to other allergic trigger J30.89 Active 259289760 Problem Hyperlipidemia, unspecified hyperlipidemia type E78.5 Active 56509244 Problem Hypertension, unspecified type I10 Active 06867907 Problem Chronic tension-type headache, not intractable G44.229 Active 374013567 Problem 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 mellitus without complication, without long -term current use of insulin E11.9 Active 765551281 Problem Type 2 diabetes mellitus with hyperglycemia E11.65 Active 175787227 Problem Chronic post-traumatic stress disorder (PTSD) F43.12 Active 849970733 Problem History of hypothyroidism Z86.39 Active 917067594 Problem Hypoglycemia E16.2 Active 067237309 Problem El's esophageal ulceration K22.10 Active 208299380 Problem Bipolar affective disorder, currently depressed, mild F31.31 Active 032276358 Problem Irritable bowel syndrome with diarrhea K58.0 Active 205920418 Problem Stress incontinence N39.3 Active 06069212 Problem History of hypertension Z86.79 Active 514930442 Problem Uncontrolled type 2 diabetes mellitus without complication, without long-term current use of insulin E11.65 Active 203130673 Problem Panic disorder with agoraphobia F40.01 Active 81107571 Problem Type 2 diabetes mellitus with hyperglycemia E11.65 Active 088316987 Problem History of seizures Z87.898 Active 495499504 Problem snf current use of insulin Z79.4 Active 416933587 Problem History of [place] (myocardial infarction) I25.2 Active 912051096 Problem Mood disorder F39 Active 64079416 Problem Bipolar 2 disorder F31.81 Active 90978470 Problem Gastritis and duodenitis K29.90 Active 715289529 Problem History of high cholesterol Z86.39 Active 208962427 Problem Bipolar I disorder with mood-congruent psychotic features F31.9 Active 665385448 Problem Hypertension, benign I10 Active 59074292 Problem Primary insomnia F51.01 Active 2059803 ALLERGIES No Information ENCOUNTERS Encounter Location Date Diagnosis [facility], [place] [id number] [place] [address] 66322- 0914 Jun, [facility], [place] [address] [address]36- 5466 Jun, Type 2 diabetes mellitus with hyperglycemia E11.65 [facility], [place] [id number] [place] [address] 34370- 1996 Jun, Uncontrolled type 2 diabetes mellitus with hyperglycemia E11.65 [facility], [place] [id number] [place] [address] 83059- 3278 Jun, [facility], [place] [id number] [place] [address] 49158- 3204 May, Lumbago M54.5 [facility] [id number] [place] [address] [phone] May, [facility], [place] [id number] [place] [address] 48384- 6500 May, [facility], [place] [address] 6[address]50- 1847 May, [facility], [place] [address], [place] [address] 0550 May, [facility], [place] [address], [place] [address]- 5923 May, [facility], [place] [address], [place] [address]- 2862 May, [facility], [place] [address] [place] [address] 83255- 9901 May, [facility], [place] [address] [place] [address] 47391- 3877 May, Lumbago M54.5 [facility], [place] [address] [place] [address] 89064- 1892 May, [facility], [place] [id number] [place] [address] 12176- [address], [address] of the chest R93.8 [facility], [place] [address], [place] [address] 3930 Apr, Bipolar 2 disorder F31.81 ; Chronic post-traumatic stress disorder (PTSD) F43.12 and Panic disorder with agoraphobia F40.01 [facility], [place] [address], [place] [address] [address] Apr, [address] of the chest R93.8 [facility], [place] [address], [place] [address]- [address] Apr, [address] of the chest R93.8 [facility], [place] [address], [place] [address]- 2524 Apr, [facility], [place] [address], [place] [address]- 3123 Apr, Type 2 diabetes mellitus with hyperglycemia E11.65 [facility], [place] [address] [place] [address] 50713- 7416 Apr, 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 mellitus without complication, without long-term current use of insulin E11.9 ; Watery eyes H04.203 ; Low back pain M54.5 ; Other chronic pain G89.29 ; Chronic tension-type headache, not intractable G44.229 ; Uncontrolled type 2 diabetes mellitus without complication , without long-term current use of insulin E11.65 and Bronchitis J40 [place] [address] [address]- 1982 Apr, [facility], [place] [address] 9[address]25- 2936 Apr, Lumbago M54.5 [place] [address] 59875- 8451 March, [facility] [address] 14[address] -9833 March, Cough R05 ; Pneumonia due to infectious organism, unspecified laterality, unspecified part of lung J18.9 and Non-intractable vomiting with nausea, unspecified vomiting type R11.2 [place] [address] 42448- 6539 March, Bronchitis J40 [place] [address] 78080- 3408 March, [place] [address] 47947- 3347 March, El's esophageal ulceration K22.10 and Type 2 diabetes mellitus with hyperglycemia E11.65 [place] [id number] [place] [address] 77906- 9864 March, Panic disorder with agoraphobia F40.01 ; Chronic post- traumatic stress disorder (PTSD) F43.12 and Bipolar 2 disorder F31.81 [place] [id number] [place] [address] 00172- 1739 March, Type 2 diabetes mellitus with hyperglycemia E11.65 [place] [address] 38199- 3022 March, [facility], [place] [id number] [place] [address] 12573- 0947 March, Lumbago M54.5 [facility], [place] [id number] [place] [address] 37528- 4805 March, [facility], [place] [id number] [place] [address] 48570- 1292 March, Irritable bowel syndrome with diarrhea K58.0 ; Primary insomnia F51.01 ; Type 2 diabetes mellitus with hyperglycemia E11.65 and 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 [facility], [place] [id number] [place] [address] 02855- 6960 March, [facility], [place] [id number] [place] [address] 21778- 2479 Jan, [facility], [place] [id number] [place] [address] 07943- 1639 Jan, [facility], [place] [id number] [place] [address] 72998- 7982 Jan, [facility], [place] [id number] [place] [address] 36091- 2078 Jan, [facility], [place] [id number] [place] [address] 96890- 8999 Jan, Dizziness R42 [facility], [place] [id number] [place] [address] 50143- 0647 Jan, Bipolar affective disorder, currently depressed, mild F31.31 ; Panic disorder with agoraphobia F40.01 and Chronic post-traumatic stress disorder (PTSD) F43.12 [facility], [place] [id number] [place] [address] 18821- 8013 Jan, Dizziness R42 [facility], [place] [address] [place] [address] 26024- 2121 Jan, Chest pain, unspecified type R07.9 ; Exertional dyspnea R06.09 ; Hypertension, unspecified type I10 and Hyperlipidemia, unspecified hyperlipidemia type E78.5 [place] [address] [place] [address] 88053- 9523 Jan, [place] [id number] [place] [address] 05923- 1339 Jan, Lumbago M54.5 [place] [address] [place] [address] 87830- 9986 04 Jan, 2018 El's esophageal ulceration K22.10 ; Blister (nonthermal ) of oral cavity, initial encounter S00.522A ; Local infection of the skin and subcutaneous tissue, unspecified L08.9 ; Type 2 diabetes mellitus with hyperglycemia E11.65 ; snf current use of insulin Z79.4 and Stress incontinence N39.3 [place] [id number] [place] [address] 23848- 0244 27 Dec, 2017 [place] [address] [place] [address] 28726- 9781 27 Dec, 2017 [place] [id number] [place] [address] 87614- 2000 19 Dec, 2017 [facility] [id number] [place] [address] [phone] 16 Dec, 2017 Dental examination Z01.20 [place] [address] [place] [address] 34001- 6580 15 Dec, 2017 Acute pain of right knee M25.561 [place] [address] [place] [address] 74205- 9231 14 Dec, 2017 [place] [id number] [place] [address] 58032- 2430 14 Dec, 2017 [place] [address] [place] [address] 15599- 1626 14 Dec, 2017 Lumbago M54.5 ; Acute pain of right knee M25.561 and Seasonal allergic rhinitis due to other allergic trigger J30.89 [facility], [place] [address], [place] [address]- 2203 Dec, Type 2 diabetes mellitus with hyperglycemia E11.65 [place] [id number] [place] [address] 34801- 6715 Dec, [facility], [place] [id number] [place] [address] 20814- 3375 Dec, [facility], [place] [id number] [place] [address] 35082- 8569 Dec, [facility], [place] [id number] [place] [address] 37193- 0475 Dec, [facility], [place] [id number] [place] [address] 46590- 2709 Dec, Chronic post-traumatic stress disorder (PTSD) F43.12 and Panic disorder with agoraphobia F40.01 [place] [address] [place] [address] 47694- 6359 13 Dec, 2017 Low back pain M54.5 [place] [address] [place] [address] 91585- 7510 12 Dec, 2017 Type 2 diabetes mellitus with hyperglycemia E11.65 ; 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 ; Low back pain M54.5 ; Encounter for therapeutic drug level monitoring Z51.81 and Other chronic pain G89.29 [place] [address] [place] [address] 78256- 4304 Dec, Coughing R05 [facility], [place] [address] [place] [address] 93800- 9688 Dec, [facility] [id number] [place] [address] [id number] 07 Dec, 2017 Dental examination Z01.20 [facility], [place] [address] [place] [address] 22785- 3615 Nov, Type 2 diabetes mellitus without complications E11.9 and Encounter for therapeutic drug level monitoring Z51.81 [facility], [place] [address], [place] [address]- 4506 Nov, [place] [id number] [place] [address] 15033- 4281 Oct, Type 2 diabetes mellitus without complications E11.9 [place] [address] [place] [address] 56030- 1808 Oct, Type 2 diabetes mellitus with hyperglycemia E11.65 [place] [id number], [place] [address]- 8577 Aug, Type 2 diabetes mellitus without complications E11.9 [place] [address] [place] [address] 35474- 8047 Aug, Type 2 diabetes mellitus without complications E11.9 ; Hypoglycemia E16.2 ; Lumbago M54.5 ; Stress incontinence of urine N39.3 and History of [place] (myocardial infarction) I25.2 [place] [address], [place] [address]- 1209 Jun, [place] [address] [place] [address] 11235- 7295 May, [place] [address] [place] [address] 27537- 6533 Apr, Panic disorder with agoraphobia F40.01 [place] [address] [place] [address] 78446- 7352 Apr, Panic disorder with agoraphobia F40.01 [place] [address], [place] [address]- 2815 Apr, [place] [id number] [place] [address] 41122- 1265 March, Other chronic pain G89.29 [facility] [place] [address], [place] [address]- 4549 March, [place] [id number] [place] [address]- 4050 March, [facility] [place] [address], [place] [address]- 7201 March, [facility] [place] [address], [place] [address]- 2352 March, [place] [id number] [place] [address] 73082- 6034 March, Type 2 diabetes mellitus without complications E11.9 [place] [address], [place] [address]- 2373 March, Diarrhea, unspecified type R19.7 [place] [address] [place] [address] 30357- 9515 March, Bipolar 2 disorder F31.81 ; Chronic post-traumatic stress disorder (PTSD) F43.12 and Type 2 diabetes mellitus with hyperglycemia E11.65 [place] [address], [place] [address]- 8277 March, [place] [address], [place] [address]- 7995 March, [place] [address], [place] [address]- 1947 March, Hypertension, benign I10 ; Type 2 diabetes mellitus with hyperglycemia E11.65 ; Hepatitis C B19.20 ; Gastritis and duodenitis K29.90 and Dysuria R30.0 [place] [address], [place] [address]- 1220 March, Hypertension, benign I10 ; Type 2 diabetes mellitus with hyperglycemia E11.65 ; Hepatitis C B19.20 ; Gastritis and duodenitis K29.90 and Dysuria R30.0 [place] [address], [place] [address]- 5267 March, Panic disorder with agoraphobia F40.01 ; Chronic post- traumatic stress disorder (PTSD) F43.12 ; Epilepsy G40.909 and Bipolar I disorder with mood-congruent psychotic features F31.9 [facility] [place] [address], [place] [address]- 8056 March, [facility] [place] [address] [place] [address] 12719- 1706 March, Type 2 diabetes mellitus with hyperglycemia E11.65 [facility] [place] [id number] [place] [address] 98082- 4733 18 Jan, 2017 Bipolar I disorder with duy F31.10 [facility] [place] [address] [place] [address] 32012- 0654 17 Jan, 2017 Bipolar 2 disorder F31.81 ; Chronic post-traumatic stress disorder (PTSD) F43.12 and Type 2 diabetes mellitus with hyperglycemia E11.65 [facility] [place] [id number] [place] [address] 85427- 8941 17 Jan, 2017 [facility] [place] [id number] [place] [address] 43911- 2709 Jan, [facility] [place] [address] [place] [address] 72668- 0250 14 Jan, 2017 Panic disorder with agoraphobia F40.01 [facility] [place] [address] [place] [address] 17517- 2510 Jan, Panic disorder with agoraphobia F40.01 ; Bipolar I disorder with mood-congruent psychotic features F31.9 ; Chronic post-traumatic stress disorder (PTSD) F43.12 and Epilepsy G40.909 [facility] [place] [address], [place] [address]- 8331 Jan, [facility] [place] [id number] [place] [address] 06258- 6892 Jan, [facility] [place] [address], [place] [address]- 4527 Jan, Type 2 diabetes mellitus without complications E11.9 and Hypoglycemia E16.2 [facility] [place] [address], [place] [address]- 7714 Jan, Type 2 diabetes mellitus without complications E11.9 ; Primary insomnia F51.01 and Hypertension, benign I10 [facility] [place] [address] [place] [address] 90495- 7982 Jan, [facility] [id number] [place] [address] [id number] Jan, [facility] [place] [id number] [place] [address] 25585- 6351 Dec, Type 2 diabetes mellitus with hyperglycemia E11.65 [facility] [place] [address] [place] [address] 31293- 4347 Dec, [facility] [place] [address] [place] [address] 96587- 9215 Dec, Bipolar 2 disorder F31.81 ; Panic disorder with agoraphobia F40.01 ; Chronic post-traumatic stress disorder (PTSD) F43.12 and Epilepsy G40.909 [facility] [place] [address], [place] [address]- 5760 Dec, [facility] [place] [id number] [place] [address] 22266- 1473 Dec, [facility] [place] [address], [place] [address]- 2465 Dec, Bipolar 2 disorder F31.81 ; Panic disorder with agoraphobia F40.01 ; Chronic post-traumatic stress disorder (PTSD) F43.12 and Epilepsy G40.909 [facility] [place] [address], [place] [address]- 6925 Dec, [facility] [place] [id number] [place] [address] 65144- 1467 Dec, [facility] [place] [address], [place] [address]- 4591 Dec, [facility] [place] [id number] [place] [address] 52536- 1998 Dec, Type 2 diabetes mellitus with hyperglycemia E11.65 ; 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 and Lumbago M54.5 [place] [address] [place] [address] 24237- 5754 Dec, [place] [address] 14575- 4511 Dec, [place] [address] 15469- 7762 Dec, [facility] [address] [place] [address] 25155 -4893 Dec, Pain of left leg M79.605 and Pain in right leg M79.604 [place] [address] [place] [address] 54612- 7511 Dec, [place] [address] 48561- 4211 Dec, Type 2 diabetes mellitus with hyperglycemia E11.65 [place] [id number] [place] [address] 90641- 2639 Dec, [place] [address] [place] [address] 25619- 2794 Dec, Type 2 diabetes mellitus with hyperglycemia E11.65 ; 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 ; Vagina, candidiasis B37.3 and Other chronic pain G89.29 [place] [address] [place] [address] 04201- 2355 Nov, Panic disorder with agoraphobia F40.01 [place] [address] [place] [address] 34553- 4526 Nov, [place] [id number] [place] [address] 70678- 1349 Nov, [place] [address] [address]- [address]35 Nov, Hypoglycemia E16.2 [facility], [place] [id number] [address] Nov, [facility], [place] [id number] [place] [address] 68201- [phone] Nov, [facility], [place] [id number] [place] [address] 26259- 0555 Nov, [facility], [place] [address] [place] [id number] [place] [address] 51489- 1487 Nov, Type 2 diabetes mellitus with hyperglycemia E11.65 and 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 [place] [address] [place] [id number] [place] [address] 98746- 5485 Nov, Panic disorder with agoraphobia F40.01 ; Bipolar 2 disorder F31.81 ; Chronic post-traumatic stress disorder (PTSD) F43.12 and Epilepsy G40.909 [place] [id number] [place] [address] 07016- 9223 Nov, Panic disorder with agoraphobia F40.01 [place] [id number] [place] [address] 46443- 6493 Oct, [facility], [place] [id number] [place] [address] 01024- 1571 Oct, [facility], [place] [id number] [place] [address] 18174- 4728 Oct, Bipolar 2 disorder F31.81 ; Panic disorder with agoraphobia F40.01 and Mood disorder F39 [facility], [place] [id number] [place] [address] 22448- 4293 Oct, Diabetes E11.9 ; Type 2 diabetes mellitus with hyperglycemia E11.65 and snf current use of insulin Z79.4 [facility], [place] [id number], [place] [address] 5084 Oct, [facility], [place] [id number] [place] [address] 46051- 4119 Sep, [facility], [place] [address] [place] [id number] [place] [address] [phone]- 6274 Sep, Bipolar 2 disorder F31.81 and Mood disorder F39 [facility], [place] [id number] [place] [address] 90296- 4223 Sep, [facility], [place] [id number] [place] [id number] Sep, Uncontrolled type 2 diabetes mellitus without complication, without long-term current use of insulin E11.65 [facility], [place] [id number] [place] [address] 670939- 9952 Sep, [facility], [place] [id number] [place] [address] 35638- 8201 Sep, [facility], [place] [id number] [place] [address] 64225- 3812 Sep, [facility], [place] [id number] [place] [address] 78336- 8923 Sep, [facility], [place] [id number] [place] [address] 64923- 4708 Sep, Bipolar 2 disorder F31.81 ; Chronic post-traumatic stress disorder (PTSD) F43.12 ; Panic disorder with agoraphobia F40.01 and Epilepsy G40.909 [facility], [place] [id number] [place] [address] 05055- 5279 11 Sep, 2016 Bipolar 2 disorder F31.81 ; PTSD (post-traumatic stress disorder) F43.10 and Panic disorder with agoraphobia F40.01 [facility], [place] [id number] [place] [address] 04872- 0728 07 Sep, 2016 [facility], [place] [id number] [place] [address] 47670- 4464 Aug, History of seizures Z87.898 ; Panic disorder with agoraphobia F40.01 and Bipolar 2 disorder F31.81 [facility], [place] [id number] [place] [address] 52544- 2158 19 Aug, 2016 [facility], [place] [address] 63347- 0107 17 Aug, 2016 [facility], [place] [id number] [place] [address] 80443- 9200 Aug, [facility], [place] [address] 66406- 6574 Aug, [facility], [place] [id number] [place] [address] 51203- 2330 Aug, [facility], [place] [address] 26647- 9081 Aug, [facility], [place] [address] 67735- 7855 Aug, Hypoglycemia E16.2 and Bilateral impacted cerumen H61.23 [facility], [place] [id number] [place] [address] 09629- 2820 Aug, [facility], [place] [id number] [place] [address] 21080- 8049 Jul, [facility], [place] [id number] [place] [address] 38971- 4621 Jul, [facility], [place] [id number] [place] [address] 27507- 9236 15 Jul, 2016 Bipolar 2 disorder F31.81 ; Panic disorder with agoraphobia F40.01 ; PTSD (post-traumatic stress disorder) F43.10 and Epilepsy G40.909 [facility], [place] [id number] [place] [address] 83832- 5059 12 Jul, 2016 [facility], [place] [id number] [place] [address] 28063- 1603 09 Jul, 2016 Type 2 diabetes mellitus without complications E11.9 and Coughing R05 [facility], [place] [id number] [place] [address] 60776- 1838 Jul, [facility], [place] [address] [place] [address] 57824- 8212 Jun, [facility], [place] [id number] [place] [address] 06215- 5841 Jun, Bipolar 2 disorder F31.81 ; PTSD (post-traumatic stress disorder) F43.10 and Panic disorder with agoraphobia F40.01 [facility], [place] [id number] [place] [address] 13877- 1293 Jun, [facility], [place] [id number] [place] [address] 29299- 1384 Jun, [facility], [place] [id number] [place] [address] 12053- 5044 Jun, [place] [id number] [place] [address] 36305- 9484 Jun, Type 2 diabetes mellitus without complications E11.9 and COPD (chronic obstructive pulmonary disease) J44.9 [facility] [id number] [place] [address] [id number] May, Dental examination Z01.20 and Dental caries K02.9 [place] [address] [place] [address] 56668- 2671 May, Bipolar 2 disorder F31.81 ; PTSD (post-traumatic stress disorder) F43.10 and Panic disorder with agoraphobia F40.01 [facility], [place] [address] [address]- 6307 May, Lumbago with sciatica, right side M54.41 ; Other chronic pain G89.29 and Uncontrolled type 2 diabetes mellitus without complication, without long-term current use of insulin E11.65 [facility], [place] [address] [place] [address] 73277- 6947 May, Chronic bronchitis, unspecified chronic bronchitis type J42 [facility], [place] [id number] [place] [address] 04767- 6753 May, [place] [address] [place] [address] 05273- 5129 May, [place] [id number] [place] [address] 12357- 7413 May, Chest pain, unspecified type R07.9 ; Tobacco use Z72.0 ; Type 2 diabetes mellitus without complications E11.9 ; Essential hypertension I10 ; Hyperlipidemia, unspecified hyperlipidemia type E78.5 ; Obesity (BMI 30- 39.9) E66.9 ; History of hypothyroidism Z86.39 ; Chronic obstructive pulmonary disease, unspecified COPD type J44.9 ; Anxiety F41.9 ; Bilateral claudication of lower limb I73.9 and Bipolar 2 disorder F31.81 [place] [id number] [place] [address] 19263- 8454 May, Bipolar 2 disorder F31.81 ; Panic disorder with agoraphobia F40.01 and Tobacco abuse Z72.0 [place] [id number] [place] [address] 85971- 8258 Apr, [place] [id number] [place] [address] 91711- 8110 Apr, [place] [id number] [place] [address] 62647- 0463 Apr, [place] [address] [place] [address] 92594- 3816 Apr, Bipolar 2 disorder F31.81 ; Panic disorder with agoraphobia F40.01 and PTSD (post-traumatic stress disorder) F43.10 [place] [id number] [place] [address] 09820- 4463 Apr, Chronic bronchitis, unspecified chronic bronchitis type J42 ; Cervical neuritis M54.12 and Thoracic neuritis M54.[address] [place] [address] 76065- 3569 Apr, [place] [address] [place] [address] 05046- 8973 15 Apr, 2016 Cervicalgia M54.2 [place] [address] 84152- 7355 14 Apr, 2016 Bipolar 2 disorder F31.81 ; Panic disorder with agoraphobia F40.01 and PTSD (post-traumatic stress disorder) F43.10 [facility] [address] 76708 -1164 13 Apr, 2016 [facility] [address] 24512 -3766 09 Apr, 2016 Cough R05 and Tobacco dependence F17.200 [place] [address] 42850- 2661 06 Apr, 2016 [place] [address] 20816- 1953 Apr, [place] [address] 01375- 0581 March, Bipolar 2 disorder F31.81 ; Panic disorder with agoraphobia F40.01 and Generalized anxiety disorder F41.1 [place] [id number] [place] [address] 64234- 2164 March, Closed displaced fracture of fifth metatarsal bone of right foot with routine healing, subsequent encounter S92.351D [place] [id number] [place] [address] 36107- 3917 March, Bronchitis J40 [place] [id number] [place] [address] 38496- 0247 March, [place] [address] 76264- 8670 March, [place] [id number] [place] [address] 19145- 8055 March, Foot pain, right M79.671 ; Cervicalgia M54.2 and 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 mellitus without complication, unspecified alf insulin use status E11.9 [facility], [place] [address], [place] [address]- 7659 March, Fracture of fifth metatarsal bone of right foot S92.351A [facility], [place] [address], [place] [address]- 5452 March, [place] [id number] [place] [address] 12382- 8909 Jan, Fracture of fifth metatarsal bone of right foot S92.351A [place] [id number] [place] [address] 86650- 7848 Jan, Bipolar 2 disorder F31.81 ; PTSD (post-traumatic stress disorder) F43.10 ; Panic disorder with agoraphobia F40.01 and Epilepsy G40.909 [place] [id number] [place] [address] 62966- 9267 Jan, History of [place] (myocardial infarction) I25.2 and History of high cholesterol Z86.39 [place] [address] [place] [address] 87198- 8104 Jan, Bipolar 2 disorder F31.81 ; Panic disorder with agoraphobia F40.01 ; Tobacco abuse Z72.0 and PTSD (post-traumatic stress disorder) F43.10 [place] [address], [place] [address]- 4518 Jan, Fracture of fifth metatarsal bone of right foot S92.351A [place] [address], [place] [address]- 8356 Jan, [place] [id number] [place] [address] 87173- 0889 Jan, History of high cholesterol Z86.39 [place] [address] [place] [address] 24555- 3871 Jan, History of [place] (myocardial infarction) I25.2 [place] [address] [place] [address] 75017- 2723 Jan, [facility], [place] [id number] [place] [address] 67973- 7168 Dec, Back pain M54.9 ; Diabetes E11.9 ; Right knee pain M25.561 and Chest pain R07.9 [place] [id number] [place] [address] 15002- 1703 Dec, [facility], [place] [address] 29035- 8576 Dec, [place] [address] 77856- 0791 Dec, Cervicalgia M54.2 [place] [address] 07944- 3680 Dec, Bipolar 2 disorder F31.81 ; PTSD (post-traumatic stress disorder) F43.10 ; Panic disorder with agoraphobia F40.01 and Epilepsy G40.909 [place] [id number] [place] [address] 47976- 9035 Dec, Bipolar 2 disorder F31.81 ; PTSD (post-traumatic stress disorder) F43.10 and Panic disorder with agoraphobia F40.01 [place] [id number] [place] [address] 86591- 4997 Dec, Diabetes E11.9 [place] [id number] [place] [address] 27501- 6908 Dec, [place] [id number] [place] [address] 47825- 8701 Dec, Other chronic pain G89.29 ; Hepatitis C B19.20 and History of seizures Z87.898 [place] [id number] [place] [address] 47305- 3967 Dec, [place] [id number] [place] [address] 37069- 3893 Dec, Bipolar 2 disorder F31.81 and Other chronic pain G89.29 [facility], [place] [id number] [place] [address] 61436- 2735 Dec, Cervicalgia M54.2 and Diabetes E11.9 [facility], [place] [id number] [place] [address] 72382- 4793 Dec, [facility], [place] [address] 20448- 1301 Dec, [facility], [place] [id number] [place] [address] 33555- 6764 Dec, [facility], [place] [id number] [place] [address] 93216- 3904 Dec, [facility], [place] [id number] [place] [address] 53976- 2764 Dec, Type 2 diabetes mellitus without complications E11.9 [facility], [place] [id number] [place] [address] 78314- 7656 Dec, [facility], [place] [id number] [place] [address] 06108- 3088 Dec, History of seizures Z87.898 and Hepatitis C B19.20 [facility], [place] [id number] [place] [address] 73468- 9633 Dec, Hepatitis C B19.20 [facility], [place] [id number] [place] [address] 13681- 4437 Dec, [facility], [place] [id number] [place] [address] 17004- 8745 Dec, Cervicalgia M54.2 ; COPD (chronic obstructive pulmonary disease) J44.9 and Hepatitis C B19.20 [facility], [place] [id number] [place] [address] 48602- 5354 Dec, Bipolar 2 disorder F31.81 ; History of hypertension Z86.79 ; History of anxiety Z86.59 ; Panic disorder with agoraphobia F40.01 and Epilepsy G40.909 [facility], [place] [address] [place] [id number] [place] [address] 71993- 5681 Nov, [facility], [place] [id number] [place] [address] 90227- 6574 Nov, [address] 61138- 7615 Nov, History of seizures Z87.898 ; OAB (overactive bladder) N32.81 ; Lumbago M54.5 ; Other chronic pain G89.29 ; Cervicalgia M54.2 ; Tobacco abuse Z72.0 ; Tobacco abuse counseling Z71.6 and Impaired fasting glucose R73.[address] 14372- 7994 Nov, Bipolar 2 disorder F31.81 ; PTSD (post-traumatic stress disorder) F43.10 ; History of anxiety Z86.59 ; History of COPD Z87.09 ; Panic disorder with agoraphobia F40.01 and Moderate depressed bipolar I disorder F31.[address] 27157- 7827 Nov, PTSD (post-traumatic stress disorder) F43.10 [facility] [id number] [place] [address] [id number] Nov, Dental examination Z01.20 and Dental caries K02.9 [place] [id number] [place] [address] 57234- 6331 08 Nov, 2015 History of hypertension Z86.79 ; History of hypothyroidism Z86.39 ; History of high cholesterol Z86.39 ; History of COPD Z87.09 and Overactive bladder N32.81 [place] [id number] [place] [address] 30267- 4577 Nov, Bipolar 2 disorder F31.81 and PTSD (post-traumatic stress disorder) F43.[address] [place] [address]- 3482 Nov, PTSD (post-traumatic stress disorder) F43.10 ; Panic disorder with agoraphobia F40.01 ; Epilepsy G40.909 and Moderate depressed bipolar I disorder F31.32 [place] [id number] [place] [address] 74789- 0325 Nov, [address] 82640- 9703 Nov, [place] [id number] [place] [address] 47833- 4024 Oct, [address] 59783- 4065 Oct, Generalized anxiety disorder F41.1 ; Major depression, recurrent F33.9 and PTSD (post-traumatic stress disorder) F43.10 [place] [id number] [place] [address] 99947- 5608 Oct, Elevated fasting glucose R73.01 [place] [id number] [place] [address] 07524- 6694 Oct, Elevated fasting glucose R73.01 [place] [id number] [place] [address] 50984- 0635 Oct, History of COPD Z87.09 [place] [id number] [place] [address] 81781- 8698 Oct, General medical exam Z00.00 ; History of hypertension Z86.79 ; History of hypothyroidism Z86.39 ; History of hepatitis Z86.19 ; History of high cholesterol Z86.39 and History of seizures Z87.898 [address] [id number] [place] [address] 21488- 5753 Oct, General medical exam Z00.00 ; History of hypertension Z86.79 ; History of hypothyroidism Z86.39 ; Bipolar 2 disorder F31.81 ; PTSD ( post-traumatic stress disorder) F43.10 ; History of hepatitis Z86.19 ; History of high cholesterol Z86.39 ; History of anxiety Z86.59 ; History of seizures Z87.898 ; History of [place] (myocardial infarction) I25.2 and History of COPD Z87.09 [facility], [place] [address], [place] [address]- 3238 Oct, Generalized anxiety disorder F41.1 ; Depression F32.9 and PTSD (post-traumatic stress disorder) F43.10 [facility], [place] [address] [address]- 2773 Jan, [facility], [place] [id number] [place] [address] 238288- 8590 Jan, [facility], [place] [id number] [place] [address] 67603- 5202 Jun, [address] [id number] Jun, [facility], [place] [id number] [place] [address] 00946- 7012 May, [facility], [place] [id number] [place] [address] 47497- 5994 May, [address] [id number] May, [facility], [place] [address], [place] [address]- 7035 May, [address] [id number] May, [facility] [place] [address], [place] [address]- 3732 May, IMMUNIZATIONS No Known Immunizations SOCIAL HISTORY [...]
--- OUTSIDE RECORDS SUMMARY | 2019-01-26 08:01 | XMS REPORT ---
Author Author GERARDO [facility] Address [address] [place] [address] Care Team Providers Care Blind Eyeletter Name Role Phone MARGI GERARDO Unavailable PROBLEMS Type Condition ICD9-CM Code SMD55-QH Code Onset Dates Condition Status SNOMED Code Problem OAB (overactive bladder) N32.81 Active 963609970 Problem Epilepsy G40.909 Active 57619776 Problem Cervicalgia M54.2 Active 50327990 Problem Other chronic pain G89.29 Active 15160561 Problem Tobacco abuse Z72.0 Active 77423566 Problem Lumbago M54.5 Active 882654723 Problem Hepatitis C B19.20 Active 24914210 Problem COPD (chronic obstructive pulmonary disease) J44.9 Active 24103763 Problem Diabetes E11.9 Active 67869965 Problem Bipolar I disorder with duy F31.10 Active 51860596 Problem Type 2 diabetes mellitus without complications E11.9 Active 657508658 Problem Stress incontinence of urine N39.3 Active 58885692 Problem Bilateral claudication of lower limb I73.9 Active 179948102 Problem Seasonal allergic rhinitis due to other allergic trigger J30.89 Active 697072438 Problem Hyperlipidemia, unspecified hyperlipidemia type E78.5 Active 63967461 Problem Hypertension, unspecified type I10 Active 54495616 Problem Chronic tension-type headache, not intractable G44.229 Active 388973535 Problem 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 mellitus without complication, without long -term current use of insulin E11.9 Active 641327424 Problem Type 2 diabetes mellitus with hyperglycemia E11.65 Active 469905165 Problem Chronic post-traumatic stress disorder (PTSD) F43.12 Active 480910658 Problem History of hypothyroidism Z86.39 Active 420854155 Problem Hypoglycemia E16.2 Active 147634901 Problem El's esophageal ulceration K22.10 Active 274337203 Problem Bipolar affective disorder, currently depressed, mild F31.31 Active 699419812 Problem Irritable bowel syndrome with diarrhea K58.0 Active 733533357 Problem Stress incontinence N39.3 Active 95544866 Problem History of hypertension Z86.79 Active 315014471 Problem Uncontrolled type 2 diabetes mellitus without complication, without long-term current use of insulin E11.65 Active 073660298 Problem Panic disorder with agoraphobia F40.01 Active 82475059 Problem Type 2 diabetes mellitus with hyperglycemia E11.65 Active 413799165 Problem History of seizures Z87.898 Active 405567964 Problem [facility] current use of insulin Z79.4 Active 564050354 Problem History of VT (myocardial infarction) I25.2 Active 812953676 Problem Mood disorder F39 Active 81294362 Problem Bipolar 2 disorder F31.81 Active 02693506 Problem Gastritis and duodenitis K29.90 Active 312212501 Problem History of high cholesterol Z86.39 Active 170588677 Problem Bipolar I disorder with mood-congruent psychotic features F31.9 Active 630619322 Problem Hypertension, benign I10 Active 19285394 Problem Primary insomnia F51.01 Active 8129025 ALLERGIES Substance Reaction Event Type Date Status Penicillin V Potassium Unknown Drug Allergy March, Active Metformin HCl diarrhea Drug Allergy March, Active Macrobid stomach upset Drug Allergy March, Active Iodine anaphylaxis Drug Allergy March, Active Fentanyl halucinations/insomnia Drug Allergy March, Active ENCOUNTERS Encounter Location Date Diagnosis [facility] [address] [place] [address] 41826- 1203 Jun, [facility] [address] [address] Jun, [facility] [id number] [place] [address] 78233- 0289 Jun, [facility] [id number] [place] [address] 01705- 8737 May, Lumbago M54.5 [facility] [address] [address] May, [facility] [address] [address] 2680 May, [facility] [address] [address] 4988 May, [facility] [address] [address] 9274 May, [facility] [address] [address]- 2854 May, [facility] [address] [place] [address] 32083- 0904 May, [facility] [id number] [place] [address] 48012- 6317 May, [facility] [id number] [place] [address] 90537- 9909 May, Lumbago M54.5 [facility] [id number] [place] [address] 16726- 6522 May, [facility] [id number] [place] [address] 10731- [address] Apr, [address] of the chest R93.8 [facility] [address] [place] [address] 63004- 5976 Apr, Bipolar 2 disorder F31.81 ; Chronic post-traumatic stress disorder (PTSD) F43.12 and Panic disorder with agoraphobia F40.01 [facility] [address] [address] [address] Apr, [address] of the chest R93.8 [facility] [address] [address] [address] Apr, [address] of the chest R93.8 [facility] [id number] [place] [address] 29858- 2886 Apr, [facility] [address] [address]- 7227 Apr, Type 2 diabetes mellitus with hyperglycemia E11.65 [facility] [id number] [place] [address] 69985- 9531 Apr, 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 mellitus without complication, without long-term current use of insulin E11.9 ; Watery eyes H04.203 ; Low back pain M54.5 ; Other chronic pain G89.29 ; Chronic tension-type headache, not intractable G44.229 ; Uncontrolled type 2 diabetes mellitus without complication , without long-term current use of insulin E11.65 and Bronchitis J40 [place] [address] 37669- 9788 Apr, [place] [address] 82117- 9378 Apr, Lumbago M54.5 [facility] [facility] [id number] [place] [address] 66428- 2098 March, [facility] [id number] [place] [address] 39102 -4157 March, Cough R05 ; Pneumonia due to infectious organism, unspecified laterality, unspecified part of lung J18.9 and Non-intractable vomiting with nausea, unspecified vomiting type R11.2 [place] [address] 81383- 8888 March, Bronchitis J40 [place] [id number] [place] [address] 51675- 7715 March, [facility] [address] [place] [address] 82762- 8034 March, El's esophageal ulceration K22.10 and Type 2 diabetes mellitus with hyperglycemia E11.65 [facility] [address] [place] [address] 35884- 2942 March, Panic disorder with agoraphobia F40.01 ; Chronic post- traumatic stress disorder (PTSD) F43.12 and Bipolar 2 disorder F31.81 [facility] [place] [address] [place] [address] 16313- 3739 March, Type 2 diabetes mellitus with hyperglycemia E11.65 [facility] [id number] [place] [address] 44958- 5787 March, [facility] [id number] [place] [address] 03530- 8044 March, Lumbago M54.5 [facility] [id number] [place] [address] 02306- 5040 March, [facility] [address] 88934- 5783 March, Irritable bowel syndrome with diarrhea K58.0 ; Primary insomnia F51.01 ; Type 2 diabetes mellitus with hyperglycemia E11.65 and [facility] current use of insulin Z79.4 [facility] [id number] [place] [address] 96558- 8403 March, [facility] [id number] [place] [address] 84493- 4552 Jan, [facility] [id number] [place] [address] 39494- 3077 Jan, [facility] [id number] [place] [address] 29796- 5249 Jan, [facility] [id number] [place] [address] 05125- 5786 Jan, [facility] [id number] [place] [address] 35269- 9734 Jan, Dizziness R42 [facility] [address] [place] [address] 38179- 3948 Jan, Bipolar affective disorder, currently depressed, mild F31.31 ; Panic disorder with agoraphobia F40.01 and Chronic post-traumatic stress disorder (PTSD) F43.12 [facility] [id number] [place] [address] 38262- 2267 Jan, Dizziness R42 [facility] [id number] [place] [address] 73385- 5122 Jan, Chest pain, unspecified type R07.9 ; Exertional dyspnea R06.09 ; Hypertension, unspecified type I10 and Hyperlipidemia, unspecified hyperlipidemia type E78.5 [facility] [address] [place] [address] 79482- 1061 Jan, [facility] [id number] [place] [address] 24919- 2933 Jan, Lumbago M54.5 [facility] [id number] [place] [address] 56765- 3523 Jan, El's esophageal ulceration K22.10 ; Blister (nonthermal ) of oral cavity, initial encounter S00.522A ; Local infection of the skin and subcutaneous tissue, unspecified L08.9 ; Type 2 diabetes mellitus with hyperglycemia E11.65 ; [facility] current use of insulin Z79.4 and Stress incontinence N39.3 [facility] [facility] [id number] [place] [address] 75700- 0316 Dec, [facility] [id number] [place] [address] 32033- 5202 27 Dec, 2017 [place] [id number] [place] [address] 27805- 8905 19 Dec, 2017 [facility] [id number] [place] [address] [id number] 16 Dec, 2017 Dental examination Z01.20 [facility] [id number] [place] [address] 40953- 1094 15 Dec, 2017 Acute pain of right knee M25.561 [facility] [id number] [place] [address] 40710- 0077 14 Dec, 2017 [facility] [id number] [place] [address] 84769- 0938 14 Dec, 2017 [place] [address] [place] [address] 86829- 7849 14 Dec, 2017 Lumbago M54.5 ; Acute pain of right knee M25.561 and Seasonal allergic rhinitis due to other allergic trigger J30.89 [facility] [address] [place] [address] 01861- 4423 Dec, Type 2 diabetes mellitus with hyperglycemia E11.65 [facility] [id number] [place] [address] 41610- 4821 Dec, [facility] [id number] [place] [address] 14800- 5182 Dec, [facility] [id number] [place] [address] 48413- 5757 Dec, [place] [id number] [place] [address] 56407- 6022 Dec, [place] [id number] [place] [address] 38932- 1180 Dec, Chronic post-traumatic stress disorder (PTSD) F43.12 and Panic disorder with agoraphobia F40.01 [place] [id number] [place] [address] 37575- 6483 13 Dec, 2017 Low back pain M54.5 [facility] [facility] [id number] [place] [address] 99857- 9492 12 Dec, 2017 Type 2 diabetes mellitus with hyperglycemia E11.65 ; [facility] current use of insulin Z79.4 ; Low back pain M54.5 ; Other chronic pain G89.29 and Encounter for therapeutic drug level monitoring Z51.81 [place] [id number] [place] [address] 08274- 9619 09 Dec, 2017 Coughing R05 [facility] [id number] [place] [address] 61984- 6689 Dec, [facility] [id number] [place] [address] [id number] 07 Dec, 2017 Dental examination Z01.20 [facility] [id number] [place] [address] 55777- 8286 29 Rolando, 2018 Type 2 diabetes mellitus without complications E11.9 and Encounter for therapeutic drug level monitoring Z51.81 [facility] [id number] [place] [address] 52182- 4625 Nov, [facility] [id number] [place] [address] 65687- 8896 Oct, Type 2 diabetes mellitus without complications E11.9 [place] [id number] [place] [address] 05767- 3915 Oct, Type 2 diabetes mellitus with hyperglycemia E11.65 [place] [id number] [place] [address] 37691- 9495 Aug, Type 2 diabetes mellitus without complications E11.9 [facility] [facility] [id number] [place] [address] 24049- 7232 Aug, Type 2 diabetes mellitus without complications E11.9 ; Hypoglycemia E16.2 ; Lumbago M54.5 ; Stress incontinence of urine N39.3 and History of VT (myocardial infarction) I25.2 [place] [id number] [place] [address] 05331- 7405 Jun, [place] [id number] [place] [address] 53164- 4583 May, [place] [address] [place] [address] 41725- 8245 Apr, Panic disorder with agoraphobia F40.01 [place] [id number] [place] [address] 80188- 2504 Apr, Panic disorder with agoraphobia F40.01 [place] [id number] [place] [address] 77798- 3160 Apr, [place] [id number] [place] [address] 95534- 1433 March, Other chronic pain G89.29 [place] [id number] [place] [address] 26870- 4949 March, [place] [address] [address]- 5259 March, [place] [address] [address]- 5879 March, [facility] [address] [address]- 4732 March, [place] [address] [address]- 0907 March, Type 2 diabetes mellitus without complications E11.9 [place] [address] [address]- 8899 March, Diarrhea, unspecified type R19.7 [place] [address] [address]- 5256 March, Bipolar 2 disorder F31.81 ; Chronic post-traumatic stress disorder (PTSD) F43.12 and Type 2 diabetes mellitus with hyperglycemia E11.65 [place] [address] [address]- 7141 March, [place] [address] [address]- 7096 March, [place] [address] [address]- 0157 March, Hypertension, benign I10 ; Type 2 diabetes mellitus with hyperglycemia E11.65 ; Hepatitis C B19.20 ; Gastritis and duodenitis K29.90 and Dysuria R30.0 [place] [id number] [address]- 6792 March, Hypertension, benign I10 ; Type 2 diabetes mellitus with hyperglycemia E11.65 ; Hepatitis C B19.20 ; Gastritis and duodenitis K29.90 and Dysuria R30.0 [place] [id number] [address]- 4862 March, Panic disorder with agoraphobia F40.01 ; Chronic post- traumatic stress disorder (PTSD) F43.12 ; Epilepsy G40.909 and Bipolar I disorder with mood-congruent psychotic features F31.9 [facility] [address] [place] [address] 17311- 8426 March, [facility] [id number] [place] [address] 21013- 8646 March, Type 2 diabetes mellitus with hyperglycemia E11.65 [facility] [id number] [place] [address] 16460- 2050 18 Jan, 2017 Bipolar I disorder with duy F31.10 [facility] [id number] [place] [address] 76244- 2549 17 Jan, 2017 Bipolar 2 disorder F31.81 ; Chronic post-traumatic stress disorder (PTSD) F43.12 and Type 2 diabetes mellitus with hyperglycemia E11.65 [place] [id number] [place] [address] 96848- 6007 17 Jan, 2017 [facility] [id number] [place] [address] 34811- 2927 Jan, [facility] [address] [place] [address] 03195- 2515 14 Jan, 2017 Panic disorder with agoraphobia F40.01 [facility] [address] [place] [address] 23282- 9736 13 Jan, 2017 Panic disorder with agoraphobia F40.01 ; Bipolar I disorder with mood-congruent psychotic features F31.9 ; Chronic post-traumatic stress disorder (PTSD) F43.12 and Epilepsy G40.909 [facility] [address] [address]- 3033 Jan, [facility] [id number] [place] [address] 23341- 5943 Jan, [facility] [address] [address]- 3869 Jan, Type 2 diabetes mellitus without complications E11.9 and Hypoglycemia E16.2 [place] [address] [address]- 1407 07 Jan, 2017 Type 2 diabetes mellitus without complications E11.9 ; Primary insomnia F51.01 and Hypertension, benign I10 [facility] [address] [address]- 0852 06 Jan, 2017 [facility] [address] [address] Jan, [facility] [address] [address]- 8584 Dec, Type 2 diabetes mellitus with hyperglycemia E11.65 [facility] [address] [place] [address] 30555- 9712 Dec, [facility] [address] [address]- 0588 Dec, Bipolar 2 disorder F31.81 ; Panic disorder with agoraphobia F40.01 ; Chronic post-traumatic stress disorder (PTSD) F43.12 and Epilepsy G40.909 [facility] [address] [address]- 6364 Dec, [facility] [address] [address]- 1100 Dec, [facility] [address] [address]- 8282 Dec, Bipolar 2 disorder F31.81 ; Panic disorder with agoraphobia F40.01 ; Chronic post-traumatic stress disorder (PTSD) F43.12 and Epilepsy G40.909 [facility] [address] [address]- 3058 Dec, [facility] [address] [address]- 1767 Dec, [facility] [id number] [address]- 9055 Dec, [facility] [id number] [place] [address] 97032- 1904 Dec, Type 2 diabetes mellitus with hyperglycemia E11.65 ; 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 and Lumbago M54.5 [place] [address] 70947- 8890 Dec, [place] [address] 97378- 5605 Dec, [place] [address] 92166- 4133 Dec, [facility] [address] 78555 -4724 Dec, Pain of left leg M79.605 and Pain in right leg M79.604 [place] [address] 93661- 0577 Dec, [place] [address] 50454- 6114 Dec, Type 2 diabetes mellitus with hyperglycemia E11.65 [place] [address] 14809- 6846 Dec, [place] [id number] [place] [address] 10220- 7295 Dec, Type 2 diabetes mellitus with hyperglycemia E11.65 ; 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 ; Vagina, candidiasis B37.3 and Other chronic pain G89.29 [facility] [id number] [place] [address] 83862- 1410 Nov, Panic disorder with agoraphobia F40.01 [place] [address] 54698- 7503 Nov, [facility] [id number] [place] [address] 09400- 7818 Nov, [place] [address] [place] [address]- 7800 Nov, Hypoglycemia E16.2 [facility] [address] [place] [address] 74924- 5313 Nov, [facility] [id number] [place] [address] 14863- 4922 Nov, [facility] [id number] [place] [address] 88276- 7752 Nov, [facility] [id number] [place] [address] 80747- 1757 Nov, Type 2 diabetes mellitus with hyperglycemia E11.65 and [facility] current use of insulin Z79.4 [place] [id number] [place] [address] 60037- 9725 Nov, Panic disorder with agoraphobia F40.01 ; Bipolar 2 disorder F31.81 ; Chronic post-traumatic stress disorder (PTSD) F43.12 and Epilepsy G40.909 [facility] [address] [place] [address] 95748- 9139 Nov, Panic disorder with agoraphobia F40.01 [facility] [address] [place] [address] 84996- 8313 Oct, [place] [address] [address]- 9750 Oct, [facility] [address] [place] [address] 24834- 4808 Oct, Bipolar 2 disorder F31.81 ; Panic disorder with agoraphobia F40.01 and Mood disorder F39 [facility] [address] [place] [address] 71336- 8889 Oct, Diabetes E11.9 ; Type 2 diabetes mellitus with hyperglycemia E11.65 and 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 [facility] [address] [address]- 3458 Oct, [facility] [id number] [place] [address] 24893- 0125 Sep, [facility] [id number] [place] [address] 47569- 9726 Sep, Bipolar 2 disorder F31.81 and Mood disorder F39 [facility] [id number] [place] [address] [id number]- 8704 Sep, [facility] [id number] [place] [phone]- 3014 Sep, Uncontrolled type 2 diabetes mellitus without complication, without long-term current use of insulin E11.65 [facility] [id number] [place] [address] [id number] Sep, [facility] [id number] [place] [address] 85934- 7699 Sep, [facility] [id number] [place] [address] [id number]- [phone] Sep, [facility] [id number] [place] [address] [phone]- 8024 Sep, [facility] [id number] [place] [address] 12472- 5301 Sep, Bipolar 2 disorder F31.81 ; Chronic post-traumatic stress disorder (PTSD) F43.12 ; Panic disorder with agoraphobia F40.01 and Epilepsy G40.909 [facility] [id number] [place] [address] 49588- 3010 Sep, Bipolar 2 disorder F31.81 ; PTSD (post-traumatic stress disorder) F43.10 and Panic disorder with agoraphobia F40.01 [facility] [id number] [place] [address] 63146- 3126 Sep, [facility] [id number] [place] [address] 35686- 4955 Aug, History of seizures Z87.898 ; Panic disorder with agoraphobia F40.01 and Bipolar 2 disorder F31.81 [facility] [id number] [place] [address] 40905- 3626 19 Aug, 2016 [facility] [address] 92912- 2387 17 Aug, 2016 [facility] [address] 74757- 6294 Aug, [facility] [address] 95536- 7477 Aug, [facility] [address] 43772- 3875 Aug, [facility] [address] 59540- 2508 Aug, [facility] [address] 73277- 2191 Aug, Hypoglycemia E16.2 and Bilateral impacted cerumen H61.23 [facility] [id number] [place] [address] 88209- 4011 Aug, [facility] [address] 61123- 7236 21 Jul, 2016 [facility] [id number] [place] [address] 94632- 6548 Jul, [facility] [id number] [place] [address] 05894- 0360 15 Jul, 2016 Bipolar 2 disorder F31.81 ; Panic disorder with agoraphobia F40.01 ; PTSD (post-traumatic stress disorder) F43.10 and Epilepsy G40.909 [facility] [id number] [place] [address] 60863- 9192 12 Jul, 2016 [facility] [id number] [place] [address] 15713- 3774 09 Jul, 2016 Type 2 diabetes mellitus without complications E11.9 and Coughing R05 [facility] [address] [address] 9737 Jul, [facility] [id number] [place] [address] 72828- 3864 Jun, [facility] [id number] [place] [address] 40202- 9254 Jun, Bipolar 2 disorder F31.81 ; PTSD (post-traumatic stress disorder) F43.10 and Panic disorder with agoraphobia F40.01 [facility] [id number] [place] [address] 11007- 5706 Jun, [facility] [id number] [place] [address] 33454- 3183 Jun, [facility] [id number] [place] [address] 55835- 6496 Jun, [facility] [id number] [place] [address] 31477- 4735 Jun, Type 2 diabetes mellitus without complications E11.9 and COPD (chronic obstructive pulmonary disease) J44.9 [facility] [address] [place] [address] [id number] May, Dental examination Z01.20 and Dental caries K02.9 [address] [place] [address] [place] [address] 62655- 2161 May, Bipolar 2 disorder F31.81 ; PTSD (post-traumatic stress disorder) F43.10 and Panic disorder with agoraphobia F40.01 [facility] [address] [address] 57[address] May, Lumbago with sciatica, right side M54.41 ; Other chronic pain G89.29 and Uncontrolled type 2 diabetes mellitus without complication, without long-term current use of insulin E11.65 [facility] [address] [address] 1472 May, Chronic bronchitis, unspecified chronic bronchitis type J42 [facility] [id number] [place] [address] 94366- 0717 May, [facility] [id number] [place] [address] 31974- 1230 May, [facility] [id number] [place] [address] 54202- 8045 May, Chest pain, unspecified type R07.9 ; Tobacco use Z72.0 ; Type 2 diabetes mellitus without complications E11.9 ; Essential hypertension I10 ; Hyperlipidemia, unspecified hyperlipidemia type E78.5 ; Obesity (BMI 30- 39.9) E66.9 ; History of hypothyroidism Z86.39 ; Chronic obstructive pulmonary disease, unspecified COPD type J44.9 ; Anxiety F41.9 ; Bilateral claudication of lower limb I73.9 and Bipolar 2 disorder F31.81 [facility] [id number] [place] [address] 05985- 3158 May, Bipolar 2 disorder F31.81 ; Panic disorder with agoraphobia F40.01 and Tobacco abuse Z72.0 [facility] [id number] [place] [address] 83300- 4320 Apr, [facility] [address] 50510- 7490 Apr, [facility] [id number] [place] [address] 81326- 5242 Apr, [facility] [id number] [place] [address] 93541- 8415 Apr, Bipolar 2 disorder F31.81 ; Panic disorder with agoraphobia F40.01 and PTSD (post-traumatic stress disorder) F43.10 [facility] [id number] [place] [address] 94793- 6829 Apr, Chronic bronchitis, unspecified chronic bronchitis type J42 ; Cervical neuritis M54.12 and Thoracic neuritis M54.14 [id number] [place] [address] 79635- 1467 Apr, [facility] [id number] [place] [address] 14287- 1994 15 Apr, 2016 Cervicalgia M54.2 [facility] [id number] [place] [address] 26642- 1492 14 Apr, 2016 Bipolar 2 disorder F31.81 ; Panic disorder with agoraphobia F40.01 and PTSD (post-traumatic stress disorder) F43.10 [facility] [id number] [place] [address] 52744 -4404 13 Apr, 2016 [facility] [id number] [place] [address] 94587 -0535 09 Apr, 2016 Cough R05 and Tobacco dependence F17.200 [facility] [id number] [place] [address] 44486- 1132 06 Apr, 2016 [facility] [id number] [place] [address] 66533- 5918 Apr, [facility] [id number] [place] [address] 14082- 2861 March, Bipolar 2 disorder F31.81 ; Panic disorder with agoraphobia F40.01 and Generalized anxiety disorder F41.1 [facility] [id number] [place] [address] 88196- 5923 March, Closed displaced fracture of fifth metatarsal bone of right foot with routine healing, subsequent encounter S92.351D [facility] [id number] [place] [address] 36098- 8745 March, Bronchitis J40 [facility] [id number] [place] [address] 58855- 5314 March, [facility] [id number] [place] [address] 96655- 3763 March, [facility] [id number] [place] [address] 73239- 9141 March, Foot pain, right M79.671 ; Cervicalgia M54.2 and 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 mellitus without complication, 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 [facility] [id number] [place] [address] 71231- 3206 March, Fracture of fifth metatarsal bone of right foot S92.351A [facility] [id number] [place] [address] 17436- 7852 March, [facility] [id number] [place] [address] 65939- 8076 Jan, Fracture of fifth metatarsal bone of right foot S92.351A [facility] [id number] [place] [address] 51930- 3148 Jan, Bipolar 2 disorder F31.81 ; PTSD (post-traumatic stress disorder) F43.10 ; Panic disorder with agoraphobia F40.01 and Epilepsy G40.909 [facility] [id number] [place] [address] 69578- 7339 Jan, History of VT (myocardial infarction) I25.2 and History of high cholesterol Z86.39 [facility] [id number] [place] [address] 47794- 3116 Jan, Bipolar 2 disorder F31.81 ; Panic disorder with agoraphobia F40.01 ; Tobacco abuse Z72.0 and PTSD (post-traumatic stress disorder) F43.10 [facility] [id number] [place] [address] 44592- 7673 Jan, Fracture of fifth metatarsal bone of right foot S92.351A [facility] [address] [place] [address] 78090- 7975 Jan, [facility] [id number] [place] [address] 61568- 8550 Jan, History of high cholesterol Z86.39 [facility] [id number] [place] [address] 48126- 6872 Jan, History of VT (myocardial infarction) I25.2 [facility] [id number] [place] [address] 80605- 2807 Jan, [facility] [address] 68541- 6804 Dec, Back pain M54.9 ; Diabetes E11.9 ; Right knee pain M25.561 and Chest pain R07.9 [address] [address] 00383- 6537 Dec, [facility] [facility] [address] 50392- 4300 Dec, [address] [address] 45694- 3363 Dec, Cervicalgia M54.2 [address] [address] 74240- 5723 Dec, Bipolar 2 disorder F31.81 ; PTSD (post-traumatic stress disorder) F43.10 ; Panic disorder with agoraphobia F40.01 and Epilepsy G40.909 [facility] [id number] [place] [address] 12587- 5257 Dec, Bipolar 2 disorder F31.81 ; PTSD (post-traumatic stress disorder) F43.10 and Panic disorder with agoraphobia F40.01 [facility] [id number] [place] [address] 39935- 5090 Dec, Diabetes E11.9 [facility] [id number] [place] [address] 71164- 1085 Dec, [facility] [id number] [place] [address] 18096- 2063 Dec, Other chronic pain G89.29 ; Hepatitis C B19.20 and History of seizures Z87.898 [facility] [id number] [place] [address] 39787- 3282 Dec, [address] [address] 24932- 7684 Dec, Bipolar 2 disorder F31.81 and Other chronic pain G89.29 [facility] [id number] [place] [address] 56294- 2206 Dec, Cervicalgia M54.2 and Diabetes E11.9 [facility] [id number] [place] [address] 51800- 9907 Dec, [facility] [id number] [place] [address] 28723- 1234 Dec, [facility] [id number] [place] [address] 23399- 7459 Dec, [facility] [id number] [place] [address] 34564- 1201 Dec, [facility] [id number] [place] [address] 30814- 9258 Dec, Type 2 diabetes mellitus without complications E11.9 [facility] [id number] [place] [address] 11660- 5317 Dec, [facility] [id number] [place] [address] 50223- 6554 Dec, History of seizures Z87.898 and Hepatitis C B19.20 [facility] [id number] [place] [address] 14703- 8958 Dec, Hepatitis C B19.20 [facility] [id number] [place] [address] 52340- 7823 Dec, [facility] [id number] [place] [address] 99670- 4901 Dec, Cervicalgia M54.2 ; COPD (chronic obstructive pulmonary disease) J44.9 and Hepatitis C B19.20 [facility] [address] [place] [address] 92065- 7906 Dec, Bipolar 2 disorder F31.81 ; History of hypertension Z86.79 ; History of anxiety Z86.59 ; Panic disorder with agoraphobia F40.01 and Epilepsy G40.909 [facility] [facility] [id number] [place] [address] 03838- 6659 Nov, [facility] [id number] [place] [address] 62360- 0868 Nov, [address] 95080- 7626 Nov, History of seizures Z87.898 ; OAB (overactive bladder) N32.81 ; Lumbago M54.5 ; Other chronic pain G89.29 ; Cervicalgia M54.2 ; Tobacco abuse Z72.0 ; Tobacco abuse counseling Z71.6 and Impaired fasting glucose R73.[address] 40889- 7749 Nov, Bipolar 2 disorder F31.81 ; PTSD (post-traumatic stress disorder) F43.10 ; History of anxiety Z86.59 ; History of COPD Z87.09 ; Panic disorder with agoraphobia F40.01 and Moderate depressed bipolar I disorder F31.32 [id number] [place] [address] 74185- 1351 12 Nov, 2015 PTSD (post-traumatic stress disorder) F43.10 [facility] [address] [place] [address] [id number] 11 Nov, 2015 Dental examination Z01.20 and Dental caries K02.9 [place] [id number] [place] [address] 61092- 0988 08 Nov, 2015 History of hypertension Z86.79 ; History of hypothyroidism Z86.39 ; History of high cholesterol Z86.39 ; History of COPD Z87.09 and Overactive bladder N32.81 [facility] [id number] [place] [address] 20125- 2620 Nov, Bipolar 2 disorder F31.81 and PTSD (post-traumatic stress disorder) F43.10 [facility] [place] [address] [place] [address] 08975- 2055 Nov, PTSD (post-traumatic stress disorder) F43.10 ; Panic disorder with agoraphobia F40.01 ; Epilepsy G40.909 and Moderate depressed bipolar I disorder F31.32 [address] [id number] [place] [address] 77716- 0732 Nov, [facility] [id number] [place] [address] 92250- 0784 Nov, [facility] [id number] [place] [address] 38775- 6859 Oct, [address] 41746- 5999 Oct, Generalized anxiety disorder F41.1 ; Major depression, recurrent F33.9 and PTSD (post-traumatic stress disorder) F43.10 [address] [id number] [place] [address] 86919- 5154 Oct, Elevated fasting glucose R73.01 [address] [id number] [place] [address] 27376- 2674 Oct, Elevated fasting glucose R73.01 [address] [id number] [place] [address] 60289- 0956 Oct, History of COPD Z87.09 [address] [id number] [place] [address] 23811- 6273 Oct, General medical exam Z00.00 ; History of hypertension Z86.79 ; History of hypothyroidism Z86.39 ; History of hepatitis Z86.19 ; History of high cholesterol Z86.39 and History of seizures Z87.898 [id number] [place] [address] 26724- 2245 10 Oct, 2015 General medical exam Z00.00 [...] and History of COPD Z87.09 [facility] [address] [address]- 7912 Oct, Generalized anxiety disorder F41.1 ; Depression F32.9 and PTSD (post-traumatic stress disorder) F43.10 [facility] [address]- 8741 14 Jan, 2015 [facility] [id number] 4135 Jan, [facility] [address] [address]- 5088 Jun, [facility] [address] [place] [id number] Jun, [facility] [address] [address]- 9716 May, [facility] [address] [address]- 8474 May, [facility] [address] [place] [id number] May, [facility] [id number] [address]- 4600 May, [facility] [place] [address] [place] [id number] May, [facility] [id number] [address]- 5526 May, IMMUNIZATIONS No Known Immunizations SOCIAL HISTORY Never Assessed REASON FOR VISIT Diabetes WB-MA PLAN OF CARE Activity Details Follow Up 4 Weeks Reason:dm2 ooc VITAL SIGNS Height 62 in 2018-03-04 Weight 164 lbs 2018-03-04 Temperature 97.6 degrees Fahrenheit 2018-03-04 Heart Rate 80 bpm 2018-03-04 Respiratory Rate 20 2018-03-04 BMI 29.99 kg/m2 2018-03-04 Blood pressure systolic 124 mmHg 2018-03-04 Blood pressure diastolic 76 mmHg 2018-03-04 MEDICATIONS Medication Instructions Dosage Frequency Start Date End Date Duration Status Lipitor 40 mg Orally Once a day 1 tablet 24h Active Xyzal 5 MG Orally Once a day 1 tablet in the evening 24h 30 Active Albuterol Sulfate 1.25 MG/3ML Inhalation 4 times a day 3 ml as needed 6h Apr, Active Doxepin HCl 100 mg Orally Once a day 1 capsule at bedtime 24h March, 30 day(s) Active Aspirin 81 MG Orally Once a day 1 tablet 24h May, 30 day(s) Active Xanax 2 MG Orally 3 times a day 1 tablet 8h 30 days Active Atenolol 50 mg Orally Once a day 1 tablet 24h 30 Active Insulin Syringe 31G X 5/16 subcutaneously 4 times a day Inject insulin 4 times daily as prescribed 6h Oct, Active Ditropan XL 10 mg Orally Once a day 1 tablet 24h Jan, Jun, 30 day(s) Active Protonix 40 MG Orally Once a day 1 tablet 24h Jan, 30 day(s) Active Cali Contour Next Test - In Vitro 3 times a day as directed 8h March, Active Carafate 1 GM Orally Twice a day 1 tablet at bedtime on an empty stomach before meals 12h Jan, March, 30 day(s) Active Levothyroxine Sodium 150 MCG Orally Once a day 1 tablet 24h 10 Oct, 2015 Active Ventolin HFA 108 (90 Base) MCG/ACT Inhalation every 6 hrs 2 puffs as needed 6h Active Symbicort 160-4.5 MCG/ACT Inhalation Twice a day- rinse mouth and spit after use 2 puffs every day Apr, Active Blood Glucose Test Strip And lancets. DX E11.9 Test fasting and 2 hours after meal test 3 times per day Dec, Active Nebulizer 1 as directed Apr, Active [place] 10-325 MG Orally 3 times a day 1 tablet as needed 8h Jan, 28 days Active NovoLog 100 UNIT/ML Subcutaneous 3 times a day Inject 10 units 8h Dec, Active Levemir 100 UNIT/ML Subcutaneous 2 times a day Inject 60 units 12h Dec, Active Microlet Lancets - as directed 8h March, Active Blood Glucose Monitor System w/Device DX- E11.9 Test fasting and 2 hours after meal test 3 times per day Dec, Active Montelukast Sodium 10 mg Orally Once a day 1 tablet 24h Oct, 30 days Active Blood Glucose Monitor 1 glucometer test blood sugar Apr, Active RESULTS No Results PROCEDURES No Known procedures INSTRUCTIONS MEDICATIONS ADMINISTERED No Known Medications MEDICAL (GENERAL) HISTORY Type Description Date Medical History Hypothyroidism Medical History High cholesterol Medical History Hypertension Medical History Brain seizure Medical History Asthma Medical History COPD Medical History Hep C -2004 Medical History VT x 2 last in [...]
--- OUTSIDE RECORDS SUMMARY | 2019-01-26 08:02 | XMS REPORT ---
Author Author GERARDO KISER [facility] Address [address] [place] [address] Care Team Providers Care Reference And Instruction Librarian Name Role Phone MARGI GERARDO Unavailable PROBLEMS Type Condition ICD9-CM Code ULZ53-DS Code Onset Dates Condition Status SNOMED Code Problem OAB (overactive bladder) N32.81 Active 885653557 Problem Epilepsy G40.909 Active 56152752 Problem Cervicalgia M54.2 Active 60061899 Problem Other chronic pain G89.29 Active 13304229 Problem Tobacco abuse Z72.0 Active 06555305 Problem Lumbago M54.5 Active 632778225 Problem Hepatitis C B19.20 Active 31598122 Problem COPD (chronic obstructive pulmonary disease) J44.9 Active 12280027 Problem Diabetes E11.9 Active 49410321 Problem Bipolar I disorder with duy F31.10 Active 27117785 Problem Type 2 diabetes mellitus without complications E11.9 Active 866490421 Problem Stress incontinence of urine N39.3 Active 61153157 Problem Bilateral claudication of lower limb I73.9 Active 576927576 Problem Seasonal allergic rhinitis due to other allergic trigger J30.89 Active 998671776 Problem Hyperlipidemia, unspecified hyperlipidemia type E78.5 Active 43272835 Problem Hypertension, unspecified type I10 Active 48643972 Problem Chronic tension-type headache, not intractable G44.229 Active 287215877 Problem 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 mellitus without complication, without long -term current use of insulin E11.9 Active 220643579 Problem Type 2 diabetes mellitus with hyperglycemia E11.65 Active 090777290 Problem Chronic post-traumatic stress disorder (PTSD) F43.12 Active 125096282 Problem History of hypothyroidism Z86.39 Active 263871871 Problem Hypoglycemia E16.2 Active 917474661 Problem El's esophageal ulceration K22.10 Active 839657611 Problem Bipolar affective disorder, currently depressed, mild F31.31 Active 497298765 Problem Irritable bowel syndrome with diarrhea K58.0 Active 799337233 Problem Stress incontinence N39.3 Active 26679558 Problem History of hypertension Z86.79 Active 595629510 Problem Uncontrolled type 2 diabetes mellitus without complication, without long-term current use of insulin E11.65 Active 240879074 Problem Panic disorder with agoraphobia F40.01 Active 76280469 Problem Type 2 diabetes mellitus with hyperglycemia E11.65 Active 929164029 Problem History of seizures Z87.898 Active 455517995 Problem senior living current use of insulin Z79.4 Active 137233738 Problem History of [place] (myocardial infarction) I25.2 Active 239562880 Problem Mood disorder F39 Active 45765420 Problem Bipolar 2 disorder F31.81 Active 85467218 Problem Gastritis and duodenitis K29.90 Active 247153772 Problem History of high cholesterol Z86.39 Active 600720694 Problem Bipolar I disorder with mood-congruent psychotic features F31.9 Active 820170082 Problem Hypertension, benign I10 Active 87561018 Problem Primary insomnia F51.01 Active 8178994 ALLERGIES No Information ENCOUNTERS Encounter Location Date Diagnosis [facility] [address] [address] Jun, [facility] [address] 0[address]63- 9474 Jun, [facility] [address] 9[address]24- 6383 Jun, [facility] [id number] [place] [address] 79112- 1233 May, Lumbago M54.5 [facility] [id number] [place] [address] [id number] May, [facility] [address] 8[address]25- 0548 May, [facility] [address] 73512- 5318 May, [facility] [address] 29057- 7559 May, [facility] [address], [place] [address] 1468 May, [facility] [id number] [place] [address] 81435- 8613 May, [facility] [id number] [place] [address] 72061- 4226 May, [facility] [id number] [place] [address] 39483- 0884 May, Lumbago M54.5 [facility] [id number] [place] [address] 78537- 7210 May, [facility] [id number] [place] [address] 52695- [address] Apr, [address] of the chest R93.8 [facility] [id number] [place] [address] 43138- 7446 Apr, Bipolar 2 disorder F31.81 ; Chronic post-traumatic stress disorder (PTSD) F43.12 and Panic disorder with agoraphobia F40.01 [facility] [facility] [id number] [place] [address] 97452- [address] Apr, [address] of the chest R93.8 [facility] [id number] [place] [address] 59508- [address] Apr, [address] of the chest R93.8 [facility] [facility] [id number] [place] [address] 48611- 2797 Apr, [facility] [id number] [place] [address] 84475- 9485 Apr, Type 2 diabetes mellitus with hyperglycemia E11.65 [facility] [address] [place] [address] 97283- 6570 Apr, 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 mellitus without complication, without long-term current use of insulin E11.9 ; Watery eyes H04.203 ; Low back pain M54.5 ; Other chronic pain G89.29 ; Chronic tension-type headache, not intractable G44.229 ; Uncontrolled type 2 diabetes mellitus without complication , without long-term current use of insulin E11.65 and Bronchitis J40 [facility] [id number] [place] [address] 16135- 0954 Apr, [facility] [id number] [place] [address] 46420- 2881 Apr, Lumbago M54.5 [facility] [address] 57918- 0510 March, [facility] [id number] [place] [address] 40506 -7439 March, Cough R05 ; Pneumonia due to infectious organism, unspecified laterality, unspecified part of lung J18.9 and Non-intractable vomiting with nausea, unspecified vomiting type R11.2 [facility] [facility] [address] 49890- 1715 March, Bronchitis J40 [facility] [id number] [place] [address] 18664- 2943 March, [facility] [address] 87575- 5977 March, El's esophageal ulceration K22.10 and Type 2 diabetes mellitus with hyperglycemia E11.65 [facility] [id number] [place] [address] 54520- 9740 March, Panic disorder with agoraphobia F40.01 ; Chronic post- traumatic stress disorder (PTSD) F43.12 and Bipolar 2 disorder F31.81 [facility] [id number] [place] [address] 00041- 9756 March, Type 2 diabetes mellitus with hyperglycemia E11.65 [facility] [id number] [place] [address] 89855- 9123 March, [facility] [id number] [place] [address] 71386- 0041 March, Lumbago M54.5 [facility] [id number] [place] [address] 42061- 3354 March, [facility] [id number] [place] [address] 27132- 2481 March, Irritable bowel syndrome with diarrhea K58.0 ; Primary insomnia F51.01 ; Type 2 diabetes mellitus with hyperglycemia E11.65 and senior living current use of insulin Z79.4 [facility] [id number] [place] [address] 87716- 0334 March, [facility] [id number] [place] [address] 88279- 1450 Jan, [facility] [id number] [place] [address] 49287- 7752 Jan, [facility] [id number] [place] [address] 01986- 7137 Jan, [facility] [id number] [place] [address] 21420- 0241 Jan, [facility] [id number] [place] [address] 64805- 4265 Jan, Dizziness R42 [facility] [id number] [place] [address] 77718- 6819 Jan, Bipolar affective disorder, currently depressed, mild F31.31 ; Panic disorder with agoraphobia F40.01 and Chronic post-traumatic stress disorder (PTSD) F43.12 [facility] [id number] [place] [address] 62217- 7337 Jan, Dizziness R42 [facility] [id number] [place] [address] 95114- 2792 Jan, Chest pain, unspecified type R07.9 ; Exertional dyspnea R06.09 ; Hypertension, unspecified type I10 and Hyperlipidemia, unspecified hyperlipidemia type E78.5 [facility] [id number] [place] [address] 99208- 0321 Jan, [facility] [id number] [place] [address] 27069- 3629 09 Jan, 2018 Lumbago M54.5 [facility] [id number] [place] [address] 33085- 5099 04 Jan, 2018 El's esophageal ulceration K22.10 ; Blister (nonthermal ) of oral cavity, initial encounter S00.522A ; Local infection of the skin and subcutaneous tissue, unspecified L08.9 ; Type 2 diabetes mellitus with hyperglycemia E11.65 ; senior living current use of insulin Z79.4 and Stress incontinence N39.3 [facility] [id number] [place] [address] 56706- 9866 Dec, [facility] [id number] [place] [address] 83007- 3463 27 Dec, 2017 [facility] [id number] [place] [address] 74594- 3621 19 Dec, 2017 [facility] [id number] [place] [address] [id number] Dec, 2017 Dental examination Z01.20 [facility] [id number] [place] [address] 74752- 4301 15 Dec, 2017 Acute pain of right knee M25.561 [facility] [id number] [place] [address] 84012- 8874 14 Dec, 2017 [facility] [id number] [place] [address] 97098- 0399 14 Dec, 2017 [facility] [address] [place] [address] 88284- 9905 14 Dec, 2017 Lumbago M54.5 ; Acute pain of right knee M25.561 and Seasonal allergic rhinitis due to other allergic trigger J30.89 [facility] [address] [address]- 4315 12 Dec, 2017 Type 2 diabetes mellitus with hyperglycemia E11.65 [facility] [address] [address]- 5030 Dec, [facility] [id number] [place] [address] 26432- 1785 Dec, [facility] [id number] [place] [address] 46479- 7560 Dec, [facility] [id number] [place] [address] 55140- 5752 Dec, [facility] [id number] [place] [address] 78142- 7937 Dec, Chronic post-traumatic stress disorder (PTSD) F43.12 and Panic disorder with agoraphobia F40.01 [facility] [id number] [place] [address] 56276- 9690 13 Dec, 2017 Low back pain M54.5 [facility] [id number] [place] [address] 72393- 6539 Dec, Type 2 diabetes mellitus with hyperglycemia E11.65 ; senior living current use of insulin Z79.4 ; Low back pain M54.5 ; Encounter for therapeutic drug level monitoring Z51.81 and Other chronic pain G89.29 [facility] [address] [address]- 6287 09 Dec, 2017 Coughing R05 [facility] [address], [place] [address]- 6667 Dec, [facility] [id number] [place] [address] [id number] Dec, 2017 Dental examination Z01.20 [facility] [id number] [place] [address] 54260- 2357 Nov, Type 2 diabetes mellitus without complications E11.9 and Encounter for therapeutic drug level monitoring Z51.81 [facility] [address], [place] [address]- 9254 Nov, [facility] [address] [address]- 4212 Oct, Type 2 diabetes mellitus without complications E11.9 [facility] [id number] [place] [address] 50902- 8974 Oct, Type 2 diabetes mellitus with hyperglycemia E11.65 [facility] [id number] [place] [address] 63974- 3254 Aug, Type 2 diabetes mellitus without complications E11.9 [facility] [id number] [place] [address] 75888- 5132 Aug, Type 2 diabetes mellitus without complications E11.9 ; Hypoglycemia E16.2 ; Lumbago M54.5 ; Stress incontinence of urine N39.3 and History of [place] (myocardial infarction) I25.2 [facility] [id number] [place] [address] 05161- 8029 Jun, [facility] [id number] [place] [address] 97895- 7563 May, [facility] [id number] [place] [address] 74275- 4497 Apr, Panic disorder with agoraphobia F40.01 [facility] [id number] [place] [address] 19979- 0910 Apr, Panic disorder with agoraphobia F40.01 [facility] [id number] [place] [address] 14360- 5882 Apr, [facility] [id number] [place] [address] 68403- 5865 March, Other chronic pain G89.29 [facility] [id number] [place] [address] 32399- 2482 March, [facility] [id number] [place] [address] 35439- 9680 March, [facility] [id number] [place] [address] 96749- 0255 March, [facility] [address], [place] [address]- 0490 March, [facility] [address] [address]- 0643 March, Type 2 diabetes mellitus without complications E11.9 [facility] [address], [place] [address]- 3689 March, Diarrhea, unspecified type R19.7 [facility] [id number] [place] [address] 51706- 5078 March, Bipolar 2 disorder F31.81 ; Chronic post-traumatic stress disorder (PTSD) F43.12 and Type 2 diabetes mellitus with hyperglycemia E11.65 [facility] [address], [place] [address]- 3015 March, [facility] [id number] [place] [address] 67519- 9104 March, [facility] [address], [place] [address]- 6485 March, Hypertension, benign I10 ; Type 2 diabetes mellitus with hyperglycemia E11.65 ; Hepatitis C B19.20 ; Gastritis and duodenitis K29.90 and Dysuria R30.0 [facility] [address], [place] [address]- 7069 March, Hypertension, benign I10 ; Type 2 diabetes mellitus with hyperglycemia E11.65 ; Hepatitis C B19.20 ; Gastritis and duodenitis K29.90 and Dysuria R30.0 [facility] [address], [place] [address]- 3078 March, Panic disorder with agoraphobia F40.01 ; Chronic post- traumatic stress disorder (PTSD) F43.12 ; Epilepsy G40.909 and Bipolar I disorder with mood-congruent psychotic features F31.9 [facility] [address], [place] [address]- 9173 March, [facility] [address], [place] [address]- 4242 March, Type 2 diabetes mellitus with hyperglycemia E11.65 [facility] [address], [place] [address]- 8036 18 Jan, 2017 Bipolar I disorder with duy F31.10 [facility] [address], [place] [address]- 1781 17 Jan, 2017 Bipolar 2 disorder F31.81 ; Chronic post-traumatic stress disorder (PTSD) F43.12 and Type 2 diabetes mellitus with hyperglycemia E11.65 [facility] [address], [place] [address]- 5822 17 Jan, 2017 [facility] [id number] [place] [address] 31152- 3641 Jan, [facility] [id number] [place] [address] 22465- 7726 14 Jan, 2017 Panic disorder with agoraphobia F40.01 [address], [place] [address]- 5343 13 Jan, 2017 Panic disorder with agoraphobia F40.01 ; Bipolar I disorder with mood-congruent psychotic features F31.9 ; Chronic post-traumatic stress disorder (PTSD) F43.12 and Epilepsy G40.909 [facility] [facility] [address], [place] [address]- 6363 Jan, [facility] [address], [place] [address]- 4035 Jan, [facility] [address], [place] [address]- 2508 10 Jan, 2017 Type 2 diabetes mellitus without complications E11.9 and Hypoglycemia E16.2 [facility] [address], [place] [address]- 9730 07 Jan, 2017 Type 2 diabetes mellitus without complications E11.9 ; Primary insomnia F51.01 and Hypertension, benign I10 [facility] [address], [place] [address]- 3099 Jan, [facility] [id number] [place] [address] [id number] Jan, [facility] [address], [place] [address]- 7880 Dec, Type 2 diabetes mellitus with hyperglycemia E11.65 [facility] [id number] [place] [address] 24050- 4258 Dec, [facility] [id number] [place] [address] 32289- 0195 Dec, Bipolar 2 disorder F31.81 ; Panic disorder with agoraphobia F40.01 ; Chronic post-traumatic stress disorder (PTSD) F43.12 and Epilepsy G40.909 [facility] [address], [place] [address]- 1913 Dec, [facility] [id number] [place] [address] 98632- 6434 Dec, [facility] [address], [place] [address]- 9473 Dec, Bipolar 2 disorder F31.81 ; Panic disorder with agoraphobia F40.01 ; Chronic post-traumatic stress disorder (PTSD) F43.12 and Epilepsy G40.909 [facility] [address], [place] [address]- 2583 Dec, [facility] [address], [place] [address]- 5353 Dec, [facility] [address], [place] [address]- 8132 Dec, [facility] [address], [place] [address]- 3686 Dec, Type 2 diabetes mellitus with hyperglycemia E11.65 ; long term acute care registered nurse current use of insulin Z79.4 and Lumbago M54.5 [facility] [address] [address]- 3396 Dec, [facility] [id number] [place] [address] 73740- 4762 Dec, [facility] [id number] [place] [address] 67570- 6150 Dec, [facility] [id number] [place] [address] 51940 -8399 Dec, Pain of left leg M79.605 and Pain in right leg M79.604 [facility] [facility] [id number] [place] [address] 57058- 8861 14 Dec, 2016 [facility] [id number] [place] [address] 42637- 2459 08 Dec, 2016 Type 2 diabetes mellitus with hyperglycemia E11.65 [facility] [id number] [place] [address] 17713- 1037 Dec, [facility] [id number] [place] [address] 35503- 2615 Dec, Type 2 diabetes mellitus with hyperglycemia E11.65 ; long term acute care registered nurse current use of insulin Z79.4 ; Vagina, candidiasis B37.3 and Other chronic pain G89.29 [facility] [facility] [id number] [place] [address] 92671- 1705 Nov, Panic disorder with agoraphobia F40.01 [facility] [id number] [place] [address] 87085- 3994 Nov, [facility] [id number] [place] [address] 17611- 0244 Nov, [facility] [id number] [place] [address] 40275- 8169 Nov, Hypoglycemia E16.2 [facility] [id number] [place] [address] 18016- 9076 Nov, [facility] [address], [place] [address]- 8907 Nov, [facility] [id number] [place] [address] 10120- 8114 Nov, [facility] [id number] [place] [address] 05463- 5157 Nov, Type 2 diabetes mellitus with hyperglycemia E11.65 and senior living current use of insulin Z79.4 [facility] [facility] [id number] [place] [address] 05328- 8544 Nov, Panic disorder with agoraphobia F40.01 ; Bipolar 2 disorder F31.81 ; Chronic post-traumatic stress disorder (PTSD) F43.12 and Epilepsy G40.909 [facility] [facility] [id number] [place] [address] 93898- 9780 Nov, Panic disorder with agoraphobia F40.01 [facility] [facility] [id number] [place] [address] 72529- 3367 Oct, [facility] [id number] [place] [address] [phone]- [phone] Oct, [place] [id number] [place] [address] [phone]- [phone] Oct, Bipolar 2 disorder F31.81 ; Panic disorder with agoraphobia F40.01 and Mood disorder F39 [place] [id number] [place] [address] 05912- 2056 Oct, Diabetes E11.9 ; Type 2 diabetes mellitus with hyperglycemia E11.65 and long term acute care registered nurse current use of insulin Z79.4 [place] [id number] [place] [address] [phone] Oct, [place] [id number] [place] [address] [phone] Sep, [place] [id number] [place] [address] [phone]- [phone] Sep, Bipolar 2 disorder F31.81 and Mood disorder F39 [facility] [id number] [place] [address] 24798- 5372 Sep, [facility] [id number] [place] [address] 42745- 8395 Sep, Uncontrolled type 2 diabetes mellitus without complication, without long-term current use of insulin E11.65 [facility] [id number] [place] [address] 94508- 0361 Sep, [facility] [id number] [place] [address] 44691- 4362 Sep, [facility] [id number] [place] [address] 75881- 2972 Sep, [place] [id number] [place] [address] 29745- 1848 Sep, [facility] [id number] [place] [address] 25517- 4317 Sep, Bipolar 2 disorder F31.81 ; Chronic post-traumatic stress disorder (PTSD) F43.12 ; Panic disorder with agoraphobia F40.01 and Epilepsy G40.909 [place] [id number] [place] [address] 79839- 2047 Sep, Bipolar 2 disorder F31.81 ; PTSD (post-traumatic stress disorder) F43.10 and Panic disorder with agoraphobia F40.01 [facility] [id number] [place] [address] 65203- 3567 Sep, [facility] [id number] [place] [address] 23711- 1260 28 Aug, 2016 History of seizures Z87.898 ; Panic disorder with agoraphobia F40.01 and Bipolar 2 disorder F31.81 [facility] [id number] [place] [address] 21668- 9275 Aug, [facility] [id number] [place] [address]- 2546 17 Aug, 2016 [facility] [id number] [place] [address] 41473- 3762 Aug, [facility] [id number] [place] [address] 52316- 9803 Aug, [facility] [id number] [place] [address] 12028- 8299 Aug, [facility] [address] 84236- 5755 Aug, [facility] [id number] [place] [address] 34944- 9071 Aug, Hypoglycemia E16.2 and Bilateral impacted cerumen H61.23 [facility] [id number] [place] [address] 69764- 3542 Aug, [facility] [address] 33129- 7165 Jul, [facility] [id number] [place] [address] 28060- 4987 Jul, [facility] [id number] [place] [address] 92734- 5004 15 Jul, 2016 Bipolar 2 disorder F31.81 ; Panic disorder with agoraphobia F40.01 ; PTSD (post-traumatic stress disorder) F43.10 and Epilepsy G40.909 [facility] [id number] [place] [address] 12776- 7856 Jul, [facility] [id number] [place] [address] 72468- 6910 09 Jul, 2016 Type 2 diabetes mellitus without complications E11.9 and Coughing R05 [facility] [id number] [place] [address] 46632- 9084 06 Jul, 2016 [facility] [id number] [place] [address] 43242- 8151 Jun, [facility] [address] [address] 8815 Jun, Bipolar 2 disorder F31.81 ; PTSD (post-traumatic stress disorder) F43.10 and Panic disorder with agoraphobia F40.01 [facility] [id number] [place] [address] 58212- 2489 Jun, [facility] [id number] [place] [address] 95188- 2622 Jun, [facility] [id number] [place] [address] 00879- 3015 Jun, [place] [id number] [place] [address] 09161- 6622 Jun, Type 2 diabetes mellitus without complications E11.9 and COPD (chronic obstructive pulmonary disease) J44.9 [facility] [id number] [place] [address] [id number] May, Dental examination Z01.20 and Dental caries K02.9 [place] [id number] [place] [address] 95363- 0328 May, Bipolar 2 disorder F31.81 ; PTSD (post-traumatic stress disorder) F43.10 and Panic disorder with agoraphobia F40.01 [place] [id number] [place] [address] 41225- 6276 May, Lumbago with sciatica, right side M54.41 ; Other chronic pain G89.29 and Uncontrolled type 2 diabetes mellitus without complication, without long-term current use of insulin E11.65 [facility] [id number] [place] [address] 67344- 1881 May, Chronic bronchitis, unspecified chronic bronchitis type J42 [facility] [id number] [place] [address] 15937- 4248 May, [facility] [id number] [place] [address] 89360- 3416 May, [place] [id number] [place] [address] 19903- 4298 13 May, 2016 Chest pain, unspecified type [...] and Bipolar 2 disorder F31.81 [place] [address] 43447- 1023 May, Bipolar 2 disorder F31.81 ; Panic disorder with agoraphobia F40.01 and Tobacco abuse Z72.0 [place] [address] 02923- 9822 Apr, [place] [address] 82530- 7888 Apr, [place] [address] 39999- 8523 Apr, [place] [address] 91618- 2929 Apr, Bipolar 2 disorder F31.81 ; Panic disorder with agoraphobia F40.01 and PTSD (post-traumatic stress disorder) F43.10 [place] [id number] [place] [address] 21930- 0575 Apr, Chronic bronchitis, unspecified chronic bronchitis type J42 ; Cervical neuritis M54.12 and Thoracic neuritis M54.[address] 85899- 7103 Apr, [place] [address] 56040- 3665 Apr, Cervicalgia M54.2 [place] [address] 42856- 6971 14 Apr, 2016 Bipolar 2 disorder F31.81 ; Panic disorder with agoraphobia F40.01 and PTSD (post-traumatic stress disorder) F43.10 [facility] [id number] [place] [address] 58590 -8297 Apr, [facility] [id number] [place] [address] 57394 -0337 Apr, Cough R05 and Tobacco dependence F17.200 [place] [id number] [place] [address] 61555- 7920 Apr, [place] [address] 27897- 4571 Apr, [place] [id number] [place] [address] 13324- 4633 March, Bipolar 2 disorder F31.81 ; Panic disorder with agoraphobia F40.01 and Generalized anxiety disorder F41.1 [place] [id number] [place] [address] 32525- 6265 March, Closed displaced fracture of fifth metatarsal bone of right foot with routine healing, subsequent encounter S92.351D [place] [id number] [place] [address] 69471- 7940 March, Bronchitis J40 [place] [id number] [place] [address] 04230- 8374 March, [place] [id number] [place] [address] 94113- 9581 March, [place] [id number] [place] [address] 98371- 8490 March, Foot pain, right M79.671 ; Cervicalgia M54.2 and 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 mellitus without complication, unspecified long chain beamer insulin use status E11.9 [place] [id number] [place] [address] 15873- 7039 March, Fracture of fifth metatarsal bone of right foot S92.351[address] [place] [id number] [place] [address] 33041- 6509 March, [place] [id number] [place] [address] 02277- 6265 Jan, Fracture of fifth metatarsal bone of right foot S92.351A [place] [id number] [place] [address] 20377- 9407 Jan, Bipolar 2 disorder F31.81 ; PTSD (post-traumatic stress disorder) F43.10 ; Panic disorder with agoraphobia F40.01 and Epilepsy G40.909 [place] [id number] [place] [address] 30004- 1919 Jan, History of [place] (myocardial infarction) I25.2 and History of high cholesterol Z86.39 [place] [id number] [place] [address] 94013- 4653 Jan, Bipolar 2 disorder F31.81 ; Panic disorder with agoraphobia F40.01 ; Tobacco abuse Z72.0 and PTSD (post-traumatic stress disorder) F43.10 [place] [id number] [place] [address] 39200- 9556 Jan, Fracture of fifth metatarsal bone of right foot S92.351A [place] [id number] [place] [address] 45762- 9654 Jan, [place] [id number] [place] [address] 70582- 8849 Jan, History of high cholesterol Z86.39 [place] [id number] [place] [address] 99029- 9012 Jan, History of [place] (myocardial infarction) I25.2 [place] [id number] [place] [address] 66148- 7105 Jan, [place] [id number] [place] [address] 69939- 0174 Dec, Back pain M54.9 ; Diabetes E11.9 ; Right knee pain M25.561 and Chest pain R07.9 [place] [id number] [place] [address] 74474- 7169 Dec, [facility] [id number] [place] [address] 89600- 9498 Dec, [place] [address] 02861- 7039 Dec, Cervicalgia M54.2 [place] [address] 51026- 5181 Dec, Bipolar 2 disorder F31.81 ; PTSD (post-traumatic stress disorder) F43.10 ; Panic disorder with agoraphobia F40.01 and Epilepsy G40.909 [place] [address] 59701- 7873 Dec, Bipolar 2 disorder F31.81 ; PTSD (post-traumatic stress disorder) F43.10 and Panic disorder with agoraphobia F40.01 [place] [id number] [place] [address] 58542- 0903 Dec, Diabetes E11.9 [place] [id number] [place] [address] 92158- 1602 Dec, [place] [id number] [place] [address] 82162- 2558 Dec, Other chronic pain G89.29 ; Hepatitis C B19.20 and History of seizures Z87.898 [place] [id number] [place] [address] 44679- 4046 Dec, [place] [address] 26396- 2978 Dec, Bipolar 2 disorder F31.81 and Other chronic pain G89.29 [place] [address] 14587- 3184 Dec, Cervicalgia M54.2 and Diabetes E11.9 [facility] [id number] [place] [address] 75765- 9196 Dec, [facility] [id number] [place] [address] 74122- 8271 Dec, [facility] [id number] [place] [address] 34081- 4085 Dec, [facility] [address] 51429- 2854 Dec, [facility] [id number] [place] [address] 19342- 8897 Dec, Type 2 diabetes mellitus without complications E11.9 [place] [address] 06432- 6102 Dec, [facility] [address] 07609- 4838 Dec, History of seizures Z87.898 and Hepatitis C B19.20 [place] [id number] [place] [address] 02404- 0029 08 Dec, 2015 Hepatitis C B19.20 [place] [id number] [place] [address] 11894- 2097 Dec, [facility] [id number] [place] [address] 23352- 4132 Dec, Cervicalgia M54.2 ; COPD (chronic obstructive pulmonary disease) J44.9 and Hepatitis C B19.20 [place] [id number] [place] [address] 13810- 4927 Dec, Bipolar 2 disorder F31.81 ; History of hypertension Z86.79 ; History of anxiety Z86.59 ; Panic disorder with agoraphobia F40.01 and Epilepsy G40.909 [facility] [id number] [place] [address] 50913- 4352 Nov, [place] [id number] [place] [address] 51475- 0546 Nov, [address] 88851- 5530 Nov, History of seizures Z87.898 ; OAB (overactive bladder) N32.81 ; Lumbago M54.5 ; Other chronic pain G89.29 ; Cervicalgia M54.2 ; Tobacco abuse Z72.0 ; Tobacco abuse counseling Z71.6 and Impaired fasting glucose R73.01 [place] [id number] [place] [address] 20148- 6643 Nov, Bipolar 2 disorder F31.81 ; PTSD (post-traumatic stress disorder) F43.10 ; History of anxiety Z86.59 ; History of COPD Z87.09 ; Panic disorder with agoraphobia F40.01 and Moderate depressed bipolar I disorder F31.32 [place] [id number] [place] [address] 71110- 2195 12 Nov, 2015 PTSD (post-traumatic stress disorder) F43.10 [facility] [id number] [place] [address] [id number] Nov, 2015 Dental examination Z01.20 and Dental caries K02.9 [place] [id number] [place] [address] 68413- 2586 08 Nov, 2015 History of hypertension Z86.79 ; History of hypothyroidism Z86.39 ; History of high cholesterol Z86.39 ; History of COPD Z87.09 and Overactive bladder N32.81 [place] [id number] [place] [address] 46031- 4599 Nov, Bipolar 2 disorder F31.81 and PTSD (post-traumatic stress disorder) F43.10 [place] [id number] [place] [address] 87923- 4911 Nov, PTSD (post-traumatic stress disorder) F43.10 ; Panic disorder with agoraphobia F40.01 ; Epilepsy G40.909 and Moderate depressed bipolar I disorder F31.32 [place] [id number] [place] [address] 20592- 1577 Nov, [place] [id number] [place] [address] 59131- 3339 Nov, [place] [id number] [place] [address] 31685- 7267 Oct, [place] [address] 80982- 3069 Oct, Generalized anxiety disorder F41.1 ; Major depression, recurrent F33.9 and PTSD (post-traumatic stress disorder) F43.10 [place] [id number] [place] [address] 40549- 9404 Oct, Elevated fasting glucose R73.01 [place] [id number] [place] [address] 45271- 4257 Oct, Elevated fasting glucose R73.01 [place] [id number] [place] [address] 57493- 3349 Oct, History of COPD Z87.09 [place] [id number] [place] [address] 68577- 4317 Oct, General medical exam Z00.00 ; History of hypertension Z86.79 ; History of hypothyroidism Z86.39 ; History of hepatitis Z86.19 ; History of high cholesterol Z86.39 and History of seizures Z87.[address] [place] [address] 30229- 9003 Oct, General medical exam Z00.00 ; History of hypertension Z86.79 ; History of hypothyroidism Z86.39 ; Bipolar 2 disorder F31.81 ; PTSD ( post-traumatic stress disorder) F43.10 ; History of hepatitis Z86.19 ; History of high cholesterol Z86.39 ; History of anxiety Z86.59 ; History of seizures Z87.898 ; History of [place] (myocardial infarction) I25.2 and History of COPD Z87.09 [place] [id number] 8057 Oct, Generalized anxiety disorder F41.1 ; Depression F32.9 and PTSD (post-traumatic stress disorder) F43.10 [facility] [id number] [address]- 1600 Jan, [facility] [id number] [address]- 1312 Jan, [facility] [id number] [address]- 4347 Jun, [facility] [address] [place] [id number] Jun, [facility] [address] [place] [address]- 4379 May, [facility] [id number] [place] [address]- 5768 May, [place] [address] [place] [id number] May, [facility] [id number] [address]- 5326 May, [place] [address] [place] [id number] May, [facility] [id number] [address]- 6292 May, IMMUNIZATIONS No Known Immunizations SOCIAL HISTORY Never Assessed REASON FOR VISIT DM ed scheduled PLAN OF CARE VITAL SIGNS MEDICATIONS Unknown [...]
--- OUTSIDE RECORDS SUMMARY | 2019-01-26 08:04 | XMS REPORT ---
Author Author FRANK LUNA Organization [facility] Address [address] [place] [address] Care Team Providers Care Private Branch Exchange Service Advisor Name Role Phone FRANK LUNA Unavailable PROBLEMS Type Condition ICD9-CM Code AUO51-MF Code Onset Dates Condition Status SNOMED Code Problem OAB (overactive bladder) N32.81 Active 329759329 Problem Epilepsy G40.909 Active 45816564 Problem Cervicalgia M54.2 Active 89225110 Problem Other chronic pain G89.29 Active 21430490 Problem Tobacco abuse Z72.0 Active 89224150 Problem Lumbago M54.5 Active 352211356 Problem Hepatitis C B19.20 Active 71839144 Problem COPD (chronic obstructive pulmonary disease) J44.9 Active 56124813 Problem Diabetes E11.9 Active 32276925 Problem Bipolar I disorder with duy F31.10 Active 85081444 Problem Type 2 diabetes mellitus without complications E11.9 Active 557915046 Problem Stress incontinence of urine N39.3 Active 00223927 Problem Bilateral claudication of lower limb I73.9 Active 832174258 Problem Seasonal allergic rhinitis due to other allergic trigger J30.89 Active 605975865 Problem Hyperlipidemia, unspecified hyperlipidemia type E78.5 Active 09799569 Problem Hypertension, unspecified type I10 Active 60589669 Problem Chronic tension-type headache, not intractable G44.229 Active 697386451 Problem 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 mellitus without complication, without long -term current use of insulin E11.9 Active 903302567 Problem Type 2 diabetes mellitus with hyperglycemia E11.65 Active 094870169 Problem Chronic post-traumatic stress disorder (PTSD) F43.12 Active 534461589 Problem History of hypothyroidism Z86.39 Active 702409151 Problem Hypoglycemia E16.2 Active 500034744 Problem El's esophageal ulceration K22.10 Active 677614968 Problem Bipolar affective disorder, currently depressed, mild F31.31 Active 078674679 Problem Irritable bowel syndrome with diarrhea K58.0 Active 277632542 Problem Stress incontinence N39.3 Active 98153567 Problem History of hypertension Z86.79 Active 636166994 Problem Uncontrolled type 2 diabetes mellitus without complication, without long-term current use of insulin E11.65 Active 256938544 Problem Panic disorder with agoraphobia F40.01 Active 72912722 Problem Type 2 diabetes mellitus with hyperglycemia E11.65 Active 465530095 Problem History of seizures Z87.898 Active 362912639 Problem FPC current use of insulin Z79.4 Active 223919253 Problem History of [place] (myocardial infarction) I25.2 Active 420242481 Problem Mood disorder F39 Active 64477555 Problem Bipolar 2 disorder F31.81 Active 16122772 Problem Gastritis and duodenitis K29.90 Active 850752365 Problem History of high cholesterol Z86.39 Active 053152219 Problem Bipolar I disorder with mood-congruent psychotic features F31.9 Active 957786901 Problem Hypertension, benign I10 Active 83115461 Problem Primary insomnia F51.01 Active 9542814 ALLERGIES No Information ENCOUNTERS Encounter Location Date Diagnosis [facility] [address] [address]- [address] Jun, [facility] [address] [address]- 58[address] Jun, [facility] [address] 8[address]- 1420 Jun, [facility] [id number] [place] [address] 15615- 5559 May, Lumbago M54.5 [facility] [id number] [place] [address] [id number] May, [facility] [address] [address]- 3672 May, [facility] [id number] [place] [address] 68736- 8121 May, [facility] [id number] [place] [address] 20091- 0774 May, [facility] [address] [address]- 7390 May, [facility] [id number] [place] [address] 42564- 7481 May, [facility] [id number] [place] [address] 22410- 8053 May, [facility] [id number] [place] [address] 01877- 7461 May, Lumbago M54.5 [facility] [id number] [place] [address] 77740- 7791 May, [facility] [id number] [place] [address] 24848- 2940 Apr, Abnormal CT of the chest R93.8 [facility] [id number] [place] [address] 91899- 9469 Apr, Bipolar 2 disorder F31.81 ; Chronic post-traumatic stress disorder (PTSD) F43.12 and Panic disorder with agoraphobia F40.01 [facility] [facility] [id number] [place] [address] 36242- [address] Apr, [address] of the chest R93.8 [place] [id number] [place] [address] 38933- [address] Apr, [address] of the chest R93.8 [place] [id number] [place] [address] 69138- 4149 Apr, [facility] [id number] [place] [address] 49416- 4388 Apr, Type 2 diabetes mellitus with hyperglycemia E11.65 [place] [address] [place] [address] 92987- 8527 Apr, 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 mellitus without complication, without long-term current use of insulin E11.9 ; Watery eyes H04.203 ; Low back pain M54.5 ; Other chronic pain G89.29 ; Chronic tension-type headache, not intractable G44.229 ; Uncontrolled type 2 diabetes mellitus without complication , without long-term current use of insulin E11.65 and Bronchitis J40 [facility] [id number] [place] [address] 50298- 1664 Apr, [facility] [address] [address]37- 0420 Apr, Lumbago M54.5 [place] [address] 11176- 7919 March, [facility] [address] [address] March, Cough R05 ; Pneumonia due to infectious organism, unspecified laterality, unspecified part of lung J18.9 and Non-intractable vomiting with nausea, unspecified vomiting type R11.2 [place] [address] 72187- 2151 March, Bronchitis J40 [place] [address] 30188- 5236 March, [place] [address] 93407- 4957 March, El's esophageal ulceration K22.10 and Type 2 diabetes mellitus with hyperglycemia E11.65 [facility] [id number] [place] [address] 95297- 3553 March, Panic disorder with agoraphobia F40.01 ; Chronic post- traumatic stress disorder (PTSD) F43.12 and Bipolar 2 disorder F31.81 [facility] [id number] [place] [address] 35508- 8706 March, Type 2 diabetes mellitus with hyperglycemia E11.65 [facility] [id number] [place] [address] 46955- 6901 March, [facility] [facility] [address] 12832- 5216 March, Lumbago M54.5 [facility] [id number] [place] [address] 59147- 3476 March, [place] [address] 87198- 9337 March, Irritable bowel syndrome with diarrhea K58.0 ; Primary insomnia F51.01 ; Type 2 diabetes mellitus with hyperglycemia E11.65 and FPC current use of insulin Z79.4 [place] [address] 86847- 0011 March, [place] [address] 65088- 7893 Jan, [place] [address] [address]- 2007 Jan, [place] [address] 94242- 6051 Jan, [facility] [id number] [place] [address] 31328- 8135 Jan, [facility] [id number] [place] [address] 13580- 0775 Jan, Dizziness R42 [place] [id number] [place] [address] 08801- 8774 Jan, Bipolar affective disorder, currently depressed, mild F31.31 ; Panic disorder with agoraphobia F40.01 and Chronic post-traumatic stress disorder (PTSD) F43.12 [facility] [id number] [place] [address] 59669- 8343 Jan, Dizziness R42 [facility] [facility] [id number] [place] [address] 77878- 7004 Jan, Chest pain, unspecified type R07.9 ; Exertional dyspnea R06.09 ; Hypertension, unspecified type I10 and Hyperlipidemia, unspecified hyperlipidemia type E78.5 [facility] [facility] [id number] [place] [address] 56765- 8344 Jan, [place] [id number] [place] [address] 75542- 0161 09 Jan, 2018 Lumbago M54.5 [facility] [id number] [place] [address] 51231- 8226 04 Jan, 2018 El's esophageal ulceration K22.10 ; Blister (nonthermal ) of oral cavity, initial encounter S00.522A ; Local infection of the skin and subcutaneous tissue, unspecified L08.9 ; Type 2 diabetes mellitus with hyperglycemia E11.65 ; FPC current use of insulin Z79.4 and Stress incontinence N39.3 [place] [address] 13145- 6650 27 Dec, 2017 [place] [id number] [place] [address] 62558- 4413 27 Dec, 2017 [place] [address] 93034- 4089 19 Dec, 2017 [facility] [id number] [place] [address] [phone] 16 Dec, 2017 Dental examination Z01.20 [facility] [id number] [place] [address] 47566- 4928 15 Dec, 2017 Acute pain of right knee M25.561 [facility] [id number] [place] [address] 05435- 4129 14 Dec, 2017 [place] [id number] [place] [address] 93383- 0400 14 Dec, 2017 [place] [id number] [place] [address] 10012- 7338 14 Dec, 2017 Lumbago M54.5 ; Acute pain of right knee M25.561 and Seasonal allergic rhinitis due to other allergic trigger J30.89 [place] [address] [place] [address] 97425- 0142 12 Dec, 2017 Type 2 diabetes mellitus with hyperglycemia E11.65 [facility] [facility] [address], [place] [address]- 8918 Dec, [facility] [id number] [place] [address] 43715- 3781 Dec, [facility] [id number] [place] [address] 56555- 9612 Dec, [facility] [id number] [place] [address] 94736- 0575 Dec, [facility] [id number] [place] [address] 12349- 3488 Dec, Chronic post-traumatic stress disorder (PTSD) F43.12 and Panic disorder with agoraphobia F40.01 [facility] [id number] [place] [address] 30265- 5944 13 Dec, 2017 Low back pain M54.5 [facility] [id number] [place] [address] 24975- 9778 Dec, Type 2 diabetes mellitus with hyperglycemia E11.65 ; funnel setter 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 ; Low back pain M54.5 ; Encounter for therapeutic drug level monitoring Z51.81 and Other chronic pain G89.29 [place] [id number] [place] [address] 26119- 4511 09 Dec, 2017 Coughing R05 [facility] [id number] [place] [address] 65040- 6823 Dec, [facility] [id number] [place] [address] [phone] 07 Dec, 2017 Dental examination Z01.20 [facility] [id number] [place] [address] 47631- 1617 Nov, Type 2 diabetes mellitus without complications E11.9 and Encounter for therapeutic drug level monitoring Z51.81 [facility] [id number] [place] [address] 99622- 1960 Nov, [facility] [address], [place] [address]- 6910 Oct, Type 2 diabetes mellitus without complications E11.9 [facility] [id number] [place] [address] 86412- 4096 Oct, Type 2 diabetes mellitus with hyperglycemia E11.65 [facility] [address] [address]- 0316 Aug, Type 2 diabetes mellitus without complications E11.9 [facility] [id number] [place] [address] 61972- 2404 Aug, Type 2 diabetes mellitus without complications E11.9 ; Hypoglycemia E16.2 ; Lumbago M54.5 ; Stress incontinence of urine N39.3 and History of [place] (myocardial infarction) I25.2 [facility] [facility] [address] [address]- 1585 Jun, [facility] [id number] [place] [address] 62052- 0946 May, [facility] [id number] [place] [address] 52198- 4697 Apr, Panic disorder with agoraphobia F40.01 [place] [address] [place] [address]- 9266 Apr, Panic disorder with agoraphobia F40.01 [place] [address], [place] [address]- 2479 Apr, [facility] [id number] [place] [address] 42908- 7830 March, Other chronic pain G89.29 [facility] [id number] [place] [address] 56079- 0141 March, [facility] [address], [place] [address]- 9974 March, [facility] [id number] [place] [address] 04879- 2211 March, [place] [address], [place] [address]- 9768 March, [facility] [id number] [place] [address] 36132- 5985 March, Type 2 diabetes mellitus without complications E11.9 [facility] [facility] [address] [address]- 2918 March, Diarrhea, unspecified type R19.7 [facility] [facility] [address] [address]- 2735 March, Bipolar 2 disorder F31.81 ; Chronic post-traumatic stress disorder (PTSD) F43.12 and Type 2 diabetes mellitus with hyperglycemia E11.65 [place] [address], [place] [address]- 8400 March, [facility] [place] [id number] [place] [address] 13323- 7392 March, [facility] [address], [place] [address]- 1295 09 Mar, 2017 Hypertension, benign I10 ; Type 2 diabetes mellitus with hyperglycemia E11.65 ; Hepatitis C B19.20 ; Gastritis and duodenitis K29.90 and Dysuria R30.0 [place] [address], [place] [address]- 3114 08 Mar, 2017 Hypertension, benign I10 ; Type 2 diabetes mellitus with hyperglycemia E11.65 ; Hepatitis C B19.20 ; Gastritis and duodenitis K29.90 and Dysuria R30.0 [place] [address], [place] [address]- 6395 March, Panic disorder with agoraphobia F40.01 ; Chronic post- traumatic stress disorder (PTSD) F43.12 ; Epilepsy G40.909 and Bipolar I disorder with mood-congruent psychotic features F31.9 [facility] [address], [place] [address]- 9115 March, [facility] [address], [place] [address]- 0486 March, Type 2 diabetes mellitus with hyperglycemia E11.65 [facility] [id number] [place] [address] 10425 2546 18 Jan, 2017 Bipolar I disorder with duy F31.10 [facility] [id number] [place] [address] 84457- 9874 17 Jan, 2017 Bipolar 2 disorder F31.81 ; Chronic post-traumatic stress disorder (PTSD) F43.12 and Type 2 diabetes mellitus with hyperglycemia E11.65 [facility] [address] [place] [address] 20768- 8839 Jan, [facility] [place] [id number] [place] [address] 48665- 2799 Jan, [facility] [place] [id number] [place] [address] 70428- 7369 14 Jan, 2017 Panic disorder with agoraphobia F40.01 [facility] [place] [id number] [place] [address] 49443- 8055 Jan, Panic disorder with agoraphobia F40.01 ; Bipolar I disorder with mood-congruent psychotic features F31.9 ; Chronic post-traumatic stress disorder (PTSD) F43.12 and Epilepsy G40.909 [place] [address], [place] [address]- 2695 Jan, [facility] [place] [id number] [place] [address] 98885- 2540 Jan, [facility] [address] [place] [address] 35778- 8471 10 Jan, 2017 Type 2 diabetes mellitus without complications E11.9 and Hypoglycemia E16.2 [place] [address], [place] [address]- 254 07 Jan, 2017 Type 2 diabetes mellitus without complications E11.9 ; Primary insomnia F51.01 and Hypertension, benign I10 [place] [address], [place] [address]- 8531 Jan, [facility] [id number] [place] [address] [id number] Jan, [facility] [address], [place] [address]- 5639 Dec, Type 2 diabetes mellitus with hyperglycemia E11.65 [facility] [id number] [place] [address] 78402- 7294 Dec, [facility] [address] [place] [address] 49131- 4219 Dec, Bipolar 2 disorder F31.81 ; Panic disorder with agoraphobia F40.01 ; Chronic post-traumatic stress disorder (PTSD) F43.12 and Epilepsy G40.909 [place] [address] [place] [address] 23144- 0702 Dec, [facility] [id number] [place] [address] 07901- 2178 Dec, [facility] [address] [place] [address] 07807- 3738 Dec, Bipolar 2 disorder F31.81 ; Panic disorder with agoraphobia F40.01 ; Chronic post-traumatic stress disorder (PTSD) F43.12 and Epilepsy G40.909 [facility] [address], [place] [address]- 5736 Dec, [facility] [address], [place] [address]- 7016 Dec, [facility] [id number] [place] [address] 49911- 9007 Dec, [facility] [id number] [place] [address] 15696- 1222 Dec, Type 2 diabetes mellitus with hyperglycemia E11.65 ; funnel setter current 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 of 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 Z79.4 and Lumbago M54.5 [facility] [id number] [place] [address] 90522- 1764 Dec, [facility] [id number] [place] [address] 01147- 5151 Dec, [facility] [id number] [place] [address] 18769- 2098 Dec, [facility] [id number] [place] [address] 67595 -8857 Dec, Pain of left leg M79.605 and Pain in right leg M79.604 [place] [id number] [place] [address] 40161- 1792 Dec, [facility] [id number] [place] [address] 06036- 5550 Dec, Type 2 diabetes mellitus with hyperglycemia E11.65 [facility] [place] [id number] [place] [address] 77211- 3626 Dec, [facility] [id number] [place] [address] 60784- 0875 Dec, Type 2 diabetes mellitus with hyperglycemia E11.65 ; FPC current use of insulin Z79.4 ; Vagina, candidiasis B37.3 and Other chronic pain G89.29 [facility] [id number] [place] [address] 66536- 7131 Nov, Panic disorder with agoraphobia F40.01 [facility] [id number] [place] [address] 15109- 2815 Nov, [facility] [id number] [place] [address] 15467- 2335 Nov, [facility] [id number] [place] [address] 69332- 4813 Nov, Hypoglycemia E16.2 [facility] [id number] [place] [address] 24916- 2273 Nov, [place] [address], [place] [address]- 7687 Nov, [facility] [id number] [place] [address] 57241- 4642 Nov, [facility] [id number] [place] [address] 80125- 0803 Nov, Type 2 diabetes mellitus with hyperglycemia E11.65 and funnel setter current use of insulin Z79.4 [facility] [id number] [place] [address] 35841- 9745 Nov, Panic disorder with agoraphobia F40.01 ; Bipolar 2 disorder F31.81 ; Chronic post-traumatic stress disorder (PTSD) F43.12 and Epilepsy G40.909 [facility] [id number] [place] [address] 12594- 5715 Nov, Panic disorder with agoraphobia F40.01 [facility] [place] [id number] [place] [address] 13653- 4617 Oct, [facility] [id number] [place] [address] 14176- 0027 Oct, [facility] [address] [place] [address] 86834- 3789 Oct, Bipolar 2 disorder F31.81 ; Panic disorder with agoraphobia F40.01 and Mood disorder F39 [facility] [address] [place] [address] 28027- 3844 Oct, Diabetes E11.9 ; Type 2 diabetes mellitus with hyperglycemia E11.65 and funnel setter current use of insulin Z79.4 [facility] [id number] [place] [address] 36434- 8557 Oct, [facility] [id number] [place] [address] 07920- 6255 Sep, [facility] [id number] [place] [address] 25411- 4992 Sep, Bipolar 2 disorder F31.81 and Mood disorder F39 [facility] [address], [place] [address]- 7361 Sep, [facility] [id number] [place] [address] 49000- 1688 Sep, Uncontrolled type 2 diabetes mellitus without complication, without long-term current use of insulin E11.65 [facility] [id number] [place] [address] 25467- 5390 Sep, [facility] [id number] [place] [address] 85213- 7535 Sep, [facility] [id number] [place] [address] 15581- 3532 Sep, [place] [id number] [place] [address] [id number]- 0094 Sep, [facility] [id number] [place] [address] 20427- 8620 Sep, Bipolar 2 disorder F31.81 ; Chronic post-traumatic stress disorder (PTSD) F43.12 ; Panic disorder with agoraphobia F40.01 and Epilepsy G40.909 [place] [id number] [place] [address] 60067- 2933 Sep, Bipolar 2 disorder F31.81 ; PTSD (post-traumatic stress disorder) F43.10 and Panic disorder with agoraphobia F40.01 [facility] [id number] [place] [address] 95857- 7828 Sep, [facility] [id number] [place] [address] 47708- 1534 Aug, History of seizures Z87.898 ; Panic disorder with agoraphobia F40.01 and Bipolar 2 disorder F31.81 [facility] [id number] [place] [address] 17424- 8428 Aug, [facility] [id number] [place] [address] 06444- 3004 17 Aug, 2016 [facility] [address] 32799- 2536 11 Aug, 2016 [facility] [address] 13292- 5387 11 Aug, 2016 [facility] [address] 64232- 9779 11 Aug, 2016 [facility] [address] [address] [address] 10 Aug, 2016 [facility] [address] [address]- 6555 10 Aug, 2016 Hypoglycemia E16.2 and Bilateral impacted cerumen H61.23 [facility] [address] 60[address]- 9809 Aug, [facility] [address] 85246- 4284 21 Jul, 2016 [facility] [address] 17001- 6148 Jul, [facility] [address] 86608- 0570 15 Jul, 2016 Bipolar 2 disorder F31.81 ; Panic disorder with agoraphobia F40.01 ; PTSD (post-traumatic stress disorder) F43.10 and Epilepsy G40.909 [facility] [address] [id number] [place] [address] 65556- 6099 12 Jul, 2016 [facility] [address] 62741- 2878 09 Jul, 2016 Type 2 diabetes mellitus without complications E11.9 and Coughing R05 [facility] [id number] [place] [address] 21279- 5451 06 Jul, 2016 [facility] [id number] [place] [address] 16204- 9651 Jun, [facility] [id number] [place] [address] 75764- 0389 Jun, Bipolar 2 disorder F31.81 ; PTSD (post-traumatic stress disorder) F43.10 and Panic disorder with agoraphobia F40.01 [facility] [id number] [place] [address] 19239- 7170 Jun, [facility] [address] [address]- 9736 Jun, [facility] [id number] [place] [address] 79369- 3732 Jun, [place] [id number] [place] [address] 05617- 0957 Jun, Type 2 diabetes mellitus without complications E11.9 and COPD (chronic obstructive pulmonary disease) J44.9 [facility] [address] [id number] May, Dental examination Z01.20 and Dental caries K02.9 [facility] [id number] [place] [address] 23000- 7409 May, Bipolar 2 disorder F31.81 ; PTSD (post-traumatic stress disorder) F43.10 and Panic disorder with agoraphobia F40.01 [facility] [id number] [place] [address] 51542- 3096 May, Lumbago with sciatica, right side M54.41 ; Other chronic pain G89.29 and Uncontrolled type 2 diabetes mellitus without complication, without long-term current use of insulin E11.65 [facility] [id number] [place] [address] 74958- 9014 May, Chronic bronchitis, unspecified chronic bronchitis type J42 [facility] [id number] [place] [address] 56072- 2197 May, [facility] [id number] [place] [address] 77078- 7128 May, [place] [id number] [place] [address] 65603- 6172 May, Chest pain, unspecified type R07.9 ; Tobacco use Z72.0 ; Type 2 diabetes mellitus without complications E11.9 ; Essential hypertension I10 ; Hyperlipidemia, unspecified hyperlipidemia type E78.5 ; Obesity (BMI 30- 39.9) E66.9 ; History of hypothyroidism Z86.39 ; Chronic obstructive pulmonary disease, unspecified COPD type J44.9 ; Anxiety F41.9 ; Bilateral claudication of lower limb I73.9 and Bipolar 2 disorder F31.81 [place] [id number] [place] [address] 72926- 1043 May, Bipolar 2 disorder F31.81 ; Panic disorder with agoraphobia F40.01 and Tobacco abuse Z72.0 [place] [address] 71115- 6652 Apr, [address] 71950- 7959 Apr, [place] [id number] [place] [address] 58807- 4557 Apr, [place] [id number] [place] [address] 68282- 7112 Apr, Bipolar 2 disorder F31.81 ; Panic disorder with agoraphobia F40.01 and PTSD (post-traumatic stress disorder) F43.10 [place] [id number] [place] [address] 79900- 6600 Apr, Chronic bronchitis, unspecified chronic bronchitis type J42 ; Cervical neuritis M54.12 and Thoracic neuritis M54.[address] 37648- 2767 Apr, [place] [id number] [place] [address] 57485- 0844 Apr, Cervicalgia M54.[address] 07617- 5592 14 Apr, 2016 Bipolar 2 disorder F31.81 ; Panic disorder with agoraphobia F40.01 and PTSD (post-traumatic stress disorder) F43.10 [facility] [id number] [place] [address] 76929 -7554 13 Apr, 2016 [facility] [id number] [place] [address] 17292 -4792 09 Apr, 2016 Cough R05 and Tobacco dependence F17.200 [facility] [id number] [place] [address] 07801- 9838 Apr, [place] [id number] [place] [address] 82589- 7865 Apr, [place] [id number] [place] [address] 52179- 9564 March, Bipolar 2 disorder F31.81 ; Panic disorder with agoraphobia F40.01 and Generalized anxiety disorder F41.1 [place] [id number] [place] [address] 73081- 6985 March, Closed displaced fracture of fifth metatarsal bone of right foot with routine healing, subsequent encounter S92.351D [place] [id number] [place] [address] 27331- 1150 March, Bronchitis J40 [place] [id number] [place] [address] 70570- 8803 March, [place] [id number] [place] [address] 68355- 1186 March, [place] [id number] [place] [address] 56227- 2455 March, Foot pain, right M79.671 ; Cervicalgia M54.2 and 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 mellitus without complication, unspecified 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 insulin use status E11.9 [place] [id number] [place] [address] 18072- 8772 March, Fracture of fifth metatarsal bone of right foot S92.351A [facility] [id number] [place] [address] 82000- 2519 March, [place] [id number] [place] [address] 09992- 4339 Jan, Fracture of fifth metatarsal bone of right foot S92.351A [place] [id number] [place] [address] 35077- 3826 Jan, Bipolar 2 disorder F31.81 ; PTSD (post-traumatic stress disorder) F43.10 ; Panic disorder with agoraphobia F40.01 and Epilepsy G40.909 [place] [id number] [place] [address] 78838- 9879 Jan, History of [place] (myocardial infarction) I25.2 and History of high cholesterol Z86.39 [place] [address] 54018- 0438 Jan, Bipolar 2 disorder F31.81 ; Panic disorder with agoraphobia F40.01 ; Tobacco abuse Z72.0 and PTSD (post-traumatic stress disorder) F43.10 [place] [id number] [place] [address] 48754- 5104 Jan, Fracture of fifth metatarsal bone of right foot S92.351A [place] [id number] [place] [address] 16089- 0167 Jan, [place] [id number] [place] [address] 33271- 4425 Jan, History of high cholesterol Z86.39 [place] [id number] [place] [address] 43383- 6616 Jan, History of [place] (myocardial infarction) I25.2 [place] [id number] [place] [address] 06704- 3396 Jan, [facility] [id number] [place] [address] 96836- 9620 Dec, Back pain M54.9 ; Diabetes E11.9 ; Right knee pain M25.561 and Chest pain R07.9 [place] [address] 60960- 6600 Dec, [place] [id number] [place] [address] 51566- 3978 Dec, [place] [address] 32231- 9653 Dec, Cervicalgia M54.2 [place] [address] 90631- 4996 Dec, Bipolar 2 disorder F31.81 ; PTSD (post-traumatic stress disorder) F43.10 ; Panic disorder with agoraphobia F40.01 and Epilepsy G40.909 [place] [address] 39978- 8241 Dec, Bipolar 2 disorder F31.81 ; PTSD (post-traumatic stress disorder) F43.10 and Panic disorder with agoraphobia F40.01 [place] [address] 46996- 8562 Dec, Diabetes E11.9 [place] [id number] [place] [address] 30929- 0789 Dec, [place] [id number] [place] [address] 55253- 3848 Dec, Other chronic pain G89.29 ; Hepatitis C B19.20 and History of seizures Z87.898 [place] [id number] [place] [address] 84693- 5084 Dec, [place] [address] 44899- 6146 Dec, Bipolar 2 disorder F31.81 and Other chronic pain G89.29 [place] [id number] [place] [address] 90948- 4732 Dec, Cervicalgia M54.2 and Diabetes E11.9 [facility] [id number] [place] [address] 91746- 0720 Dec, [facility] [address] 21073- 5871 Dec, [facility] [address] 10257- 5511 Dec, [facility] [address] 04912- 1841 Dec, [facility] [address] 63740- 4219 Dec, Type 2 diabetes mellitus without complications E11.9 [place] [address] 79739- 8934 Dec, [facility] [address] 87775- 8250 Dec, History of seizures Z87.898 and Hepatitis C B19.20 [place] [address] 04744- 6113 Dec, Hepatitis C B19.20 [place] [address] 82228- 5250 Dec, [facility] [id number] [place] [address] 61839- 2431 Dec, Cervicalgia M54.2 ; COPD (chronic obstructive pulmonary disease) J44.9 and Hepatitis C B19.20 [place] [id number] [place] [address] 50128- 9831 Dec, Bipolar 2 disorder F31.81 ; History of hypertension Z86.79 ; History of anxiety Z86.59 ; Panic disorder with agoraphobia F40.01 and Epilepsy G40.909 [facility] [address] 50698- 1292 Nov, [facility] [id number] [place] [address] 13884- 1338 Nov, [place] 138478- 6558 Nov, History of seizures Z87.898 ; OAB (overactive bladder) N32.81 ; Lumbago M54.5 ; Other chronic pain G89.29 ; Cervicalgia M54.2 ; Tobacco abuse Z72.0 ; Tobacco abuse counseling Z71.6 and Impaired fasting glucose R73.01 [place] [id number] [place] [address] 95893- 2535 Nov, Bipolar 2 disorder F31.81 ; PTSD (post-traumatic stress disorder) F43.10 ; History of anxiety Z86.59 ; History of COPD Z87.09 ; Panic disorder with agoraphobia F40.01 and Moderate depressed bipolar I disorder F31.32 [place] [id number] [place] [address] 84125- 1070 12 Nov, 2015 PTSD (post-traumatic stress disorder) F43.10 [facility] [id number] [place] [address] [id number] 11 Nov, 2015 Dental examination Z01.20 and Dental caries K02.9 [place] [id number] [place] [address] 10638- 9194 08 Nov, 2015 History of hypertension Z86.79 ; History of hypothyroidism Z86.39 ; History of high cholesterol Z86.39 ; History of COPD Z87.09 and Overactive bladder N32.81 [place] [address] [place] [address] 25131- 2737 Nov, Bipolar 2 disorder F31.81 and PTSD (post-traumatic stress disorder) F43.10 [place] [id number] [place] [address] 37980- 8654 Nov, PTSD (post-traumatic stress disorder) F43.10 ; Panic disorder with agoraphobia F40.01 ; Epilepsy G40.909 and Moderate depressed bipolar I disorder F31.32 [place] [id number] [place] [address] 60262- 4329 Nov, [place] [id number] [place] [address] 85220- 9096 Nov, [place] [id number] [place] [address] 43552- 6155 Oct, [place] [address] 93929- 1279 Oct, Generalized anxiety disorder F41.1 ; Major depression, recurrent F33.9 and PTSD (post-traumatic stress disorder) F43.10 [place] [id number] [place] [address] 14766- 7428 Oct, Elevated fasting glucose R73.01 [place] [id number] [place] [address] 10548- 9442 Oct, Elevated fasting glucose R73.01 [place] [id number] [place] [address] 37199- 2211 Oct, History of COPD Z87.09 [place] [id number] [place] [address] 60675- 1337 Oct, General medical exam Z00.00 ; History of hypertension Z86.79 ; History of hypothyroidism Z86.39 ; History of hepatitis Z86.19 ; History of high cholesterol Z86.39 and History of seizures Z87.898 [place] [address] [place] [address] 32586- 0563 Oct, General medical exam Z00.00 ; History [...] Z87.09 [facility] [id number] [address]- 5218 Oct, Generalized anxiety disorder F41.1 ; Depression F32.9 and PTSD (post-traumatic stress disorder) F43.10 [facility] [id number] [address]- 7507 Jan, [facility] [address] [address]- 3872 Jan, [facility] [address] [place] [address]- 3074 Jun, [place] [address] [place] [id number] Jun, [facility] [address] [place] [address]- 4655 May, [facility] [address] [place] [address]- 5987 May, [place] [address] [place] [id number] May, [facility] [id number] [address]- 4076 May, [place] [address] [place] [id number] May, [facility] [id number] [address]- 8225 May, IMMUNIZATIONS No Known Immunizations SOCIAL HISTORY [...] Medical History Hep C -2005 Medical History [place] x 2 last in [...]
--- OUTSIDE RECORDS SUMMARY | 2019-01-26 08:05 | XMS REPORT ---
Author Author FRANK LUNA Organization [facility] Address [address] [place] [address] Care Team Providers Care Applier Name Role Phone FRANK LUNA Unavailable PROBLEMS Type Condition ICD9-CM Code [id number] Code Onset Dates Condition Status SNOMED Code Problem OAB (overactive bladder) N32.81 Active 735632191 Problem Epilepsy G40.909 Active 11279560 Problem Cervicalgia M54.2 Active 88035736 Problem Other chronic pain G89.29 Active 16556222 Problem Tobacco abuse Z72.0 Active 35443053 Problem Lumbago M54.5 Active 907939996 Problem Hepatitis C B19.20 Active 08742391 Problem COPD (chronic obstructive pulmonary disease) J44.9 Active 32753030 Problem Diabetes E11.9 Active 18657587 Problem Bipolar I disorder with duy F31.10 Active 97597262 Problem Type 2 diabetes mellitus without complications E11.9 Active 753304269 Problem Stress incontinence of urine N39.3 Active 43055795 Problem Bilateral claudication of lower limb I73.9 Active 008799798 Problem Seasonal allergic rhinitis due to other allergic trigger J30.89 Active 391649356 Problem Hyperlipidemia, unspecified hyperlipidemia type E78.5 Active 87635468 Problem Hypertension, unspecified type I10 Active 51306771 Problem Chronic tension-type headache, not intractable G44.229 Active 806870805 Problem 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 mellitus without complication, without long -term current use of insulin E11.9 Active 586232580 Problem Type 2 diabetes mellitus with hyperglycemia E11.65 Active 884858881 Problem Chronic post-traumatic stress disorder (PTSD) F43.12 Active 203475403 Problem History of hypothyroidism Z86.39 Active 735292855 Problem Hypoglycemia E16.2 Active 286576723 Problem El's esophageal ulceration K22.10 Active 523931918 Problem Bipolar affective disorder, currently depressed, mild F31.31 Active 946727188 Problem Irritable bowel syndrome with diarrhea K58.0 Active 852818840 Problem Stress incontinence N39.3 Active 87062257 Problem History of hypertension Z86.79 Active 810361617 Problem Uncontrolled type 2 diabetes mellitus without complication, without long-term current use of insulin E11.65 Active 078479769 Problem Panic disorder with agoraphobia F40.01 Active 74174204 Problem Type 2 diabetes mellitus with hyperglycemia E11.65 Active 692042967 Problem History of seizures Z87.898 Active 373649347 Problem USP current use of insulin Z79.4 Active 421917857 Problem History of PR (myocardial infarction) I25.2 Active 038157628 Problem Mood disorder F39 Active 16075700 Problem Bipolar 2 disorder F31.81 Active 50447408 Problem Gastritis and duodenitis K29.90 Active 425668991 Problem History of high cholesterol Z86.39 Active 424405866 Problem Bipolar I disorder with mood-congruent psychotic features F31.9 Active 525874668 Problem Hypertension, benign I10 Active 48466507 Problem Primary insomnia F51.01 Active 6517839 ALLERGIES No Information ENCOUNTERS Encounter Location Date Diagnosis [facility] [address] [address] Jun, [facility] [address] [address]- [address] Jun, [facility] [address] 6[address]- 9026 Jun, [facility] [id number] [place] [address] 95018- 8776 May, Lumbago M54.5 [facility] [id number] [place] [address] [id number] May, [facility] [address] [address]- 9[address] May, [facility] [id number] [place] [address] 59869- 5928 May, [facility] [id number] [place] [address] 10426- 3668 May, [facility] [address] [address] 3911 May, [facility] [id number] [place] [address] 93948- 2889 May, [facility] [address] [place] [address] 75166- 7979 May, [facility] [id number] [place] [address] 54202- 3356 May, Lumbago M54.5 [facility] [address] [place] [address] 10228- 5225 May, [facility] [id number] [place] [address] 65754- [address] of the chest R93.8 [facility] [id number] [place] [address] 70856- 6684 Apr, Bipolar 2 disorder F31.81 ; Chronic post-traumatic stress disorder (PTSD) F43.12 and Panic disorder with agoraphobia F40.01 [facility] [id number] [place] [address] 96232- [address] Apr, [address] of the chest R93.8 [facility] [address] [place] [address] 91068- [address] Apr, [address] of the chest R93.8 [facility] [address] [place] [address] 24700- 0963 Apr, [facility] [id number] [place] [address] 66839- 3840 Apr, Type 2 diabetes mellitus with hyperglycemia E11.65 [facility] [address] [place] [address] 59544- 3438 Apr, 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 mellitus without complication, without long-term current use of insulin E11.9 ; Watery eyes H04.203 ; Low back pain M54.5 ; Other chronic pain G89.29 ; Chronic tension-type headache, not intractable G44.229 ; Uncontrolled type 2 diabetes mellitus without complication , without long-term current use of insulin E11.65 and Bronchitis J40 [facility] [id number] [place] [address] 98932- 2663 Apr, [facility] [address] 32017- 0790 Apr, Lumbago M54.5 [place] [facility] [address] 67223- 3846 March, [facility] [address] [address] March, Cough R05 ; Pneumonia due to infectious organism, unspecified laterality, unspecified part of lung J18.9 and Non-intractable vomiting with nausea, unspecified vomiting type R11.2 [facility] [facility] [address] 37462- 0225 March, Bronchitis J40 [facility] [facility] [address] 86995- 3096 March, [facility] [address] 74916- 4045 March, El's esophageal ulceration K22.10 and Type 2 diabetes mellitus with hyperglycemia E11.65 [facility] [id number] [place] [address] 50302- 8911 March, Panic disorder with agoraphobia F40.01 ; Chronic post- traumatic stress disorder (PTSD) F43.12 and Bipolar 2 disorder F31.81 [facility] [id number] [place] [address] 77863- 4260 March, Type 2 diabetes mellitus with hyperglycemia E11.65 [facility] [id number] [place] [address] 35095- 0378 March, [facility] [address] 58341- 1320 March, Lumbago M54.5 [facility] [id number] [place] [address] 93441- 3527 March, [facility] [address] 63347- 7806 March, Irritable bowel syndrome with diarrhea K58.0 ; Primary insomnia F51.01 ; Type 2 diabetes mellitus with hyperglycemia E11.65 and USP current use of insulin Z79.4 [facility] [facility] [address] 07292- 5171 March, [place] [address] 25431- 0995 Jan, [facility] [facility] [address] 95568- 8902 Jan, [facility] [facility] [address] 09963- 5648 Jan, [facility] [id number] [place] [address] 68118- 8556 Jan, [facility] [id number] [place] [address] 69386- 8272 Jan, Dizziness R42 [facility] [id number] [place] [address] 71300- 0380 Jan, Bipolar affective disorder, currently depressed, mild F31.31 ; Panic disorder with agoraphobia F40.01 and Chronic post-traumatic stress disorder (PTSD) F43.12 [facility] [id number] [place] [address] 52659- 5870 Jan, Dizziness R42 [facility] [id number] [place] [address] 42251- 2798 Jan, Chest pain, unspecified type R07.9 ; Exertional dyspnea R06.09 ; Hypertension, unspecified type I10 and Hyperlipidemia, unspecified hyperlipidemia type E78.5 [facility] [id number] [place] [address] 25948- 5920 Jan, [facility] [id number] [place] [address] 84383- 4123 09 Jan, 2018 Lumbago M54.5 [facility] [id number] [place] [address] 55801- 9878 04 Jan, 2018 El's esophageal ulceration K22.10 ; Blister (nonthermal ) of oral cavity, initial encounter S00.522A ; Local infection of the skin and subcutaneous tissue, unspecified L08.9 ; Type 2 diabetes mellitus with hyperglycemia E11.65 ; USP current use of insulin Z79.4 and Stress incontinence N39.3 [facility] [address] 08428- 4447 27 Dec, 2017 [facility] [id number] [place] [address] 81379- 1403 27 Dec, 2017 [place] [address] 84205- 0380 19 Dec, 2017 [facility] [id number] [place] [address] [phone] Dec, 2017 Dental examination Z01.20 [facility] [id number] [place] [address] 76057- 5853 15 Dec, 2017 Acute pain of right knee M25.561 [facility] [facility] [id number] [place] [address] 88317- 3140 14 Dec, 2017 [place] [id number] [place] [address] 76593- 1884 14 Dec, 2017 [facility] [id number] [place] [address] 43884- 9776 14 Dec, 2017 Lumbago M54.5 ; Acute pain of right knee M25.561 and Seasonal allergic rhinitis due to other allergic trigger J30.89 [facility] [address] [place] [address] 94782- 3185 12 Dec, 2017 Type 2 diabetes mellitus with hyperglycemia E11.65 [facility] [address] [address]- 7351 Dec, [facility] [id number] [place] [address] 83883- 8016 Dec, [facility] [id number] [place] [address] 25363- 2595 Dec, [facility] [id number] [place] [address] 03276- 6231 Dec, [facility] [id number] [place] [address] 03534- 6464 Dec, Chronic post-traumatic stress disorder (PTSD) F43.12 and Panic disorder with agoraphobia F40.01 [facility] [id number] [place] [address] 54346- 4276 13 Dec, 2017 Low back pain M54.5 [facility] [id number] [place] [address] 59080- 7982 Dec, Type 2 diabetes mellitus with hyperglycemia E11.65 ; 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 ; Low back pain M54.5 ; Encounter for therapeutic drug level monitoring Z51.81 and Other chronic pain G89.29 [facility] [address] [place] [address] 58493- 2195 09 Dec, 2017 Coughing R05 [facility] [id number] [place] [address] 94956- 4941 Dec, [facility] [address] [place] [address] [phone] Dec, 2017 Dental examination Z01.20 [facility] [id number] [place] [address] 41033- 4049 Nov, Type 2 diabetes mellitus without complications E11.9 and Encounter for therapeutic drug level monitoring Z51.81 [facility] [address] [place] [address] 06984- 3546 Nov, [facility] [address] [address]- 0821 Oct, Type 2 diabetes mellitus without complications E11.9 [facility] [id number] [place] [address] 58334- 5379 Oct, Type 2 diabetes mellitus with hyperglycemia E11.65 [facility] [id number] [address]- 4980 Aug, Type 2 diabetes mellitus without complications E11.9 [facility] [id number] [place] [address] 93038- 5246 Aug, Type 2 diabetes mellitus without complications E11.9 ; Hypoglycemia E16.2 ; Lumbago M54.5 ; Stress incontinence of urine N39.3 and History of PR (myocardial infarction) I25.2 [facility] [id number] [address]- 6081 Jun, [place] [id number] [place] [address] 11303- 6047 May, [place] [id number] [place] [address] 03790- 3273 Apr, Panic disorder with agoraphobia F40.01 [facility] [address] [address]- 9383 Apr, Panic disorder with agoraphobia F40.01 [facility] [address] [address]- 7694 Apr, [facility] [id number] [place] [address] 59405- 4970 March, Other chronic pain G89.29 [facility] [id number] [place] [address] 72317- 0947 March, [facility] [address] [address]- 2698 March, [place] [id number] [place] [address] 59636- 9139 March, [place] [address] [address]- 6395 March, [place] [id number] [place] [address] 65481- 6498 March, Type 2 diabetes mellitus without complications E11.9 [facility] [id number] [address]- 5402 March, Diarrhea, unspecified type R19.7 [facility] [id number] [address]- 2369 March, Bipolar 2 disorder F31.81 ; Chronic post-traumatic stress disorder (PTSD) F43.12 and Type 2 diabetes mellitus with hyperglycemia E11.65 [facility] [address] [address]- 7158 March, [place] [id number] [place] [address] 73908- 8965 March, [facility] [address] [address]- 3058 09 Mar, 2017 Hypertension, benign I10 ; Type 2 diabetes mellitus with hyperglycemia E11.65 ; Hepatitis C B19.20 ; Gastritis and duodenitis K29.90 and Dysuria R30.0 [facility] [facility] [address] [address]- 2871 08 Mar, 2017 Hypertension, benign I10 ; Type 2 diabetes mellitus with hyperglycemia E11.65 ; Hepatitis C B19.20 ; Gastritis and duodenitis K29.90 and Dysuria R30.0 [facility] [facility] [address] [address]- 3186 March, Panic disorder with agoraphobia F40.01 ; Chronic post- traumatic stress disorder (PTSD) F43.12 ; Epilepsy G40.909 and Bipolar I disorder with mood-congruent psychotic features F31.9 [facility] [address] [address]- 0541 March, [facility] [facility] [address] [address]- 0751 March, Type 2 diabetes mellitus with hyperglycemia E11.65 [facility] [facility] [id number] [place] [address] 92830 2546 18 Jan, 2017 Bipolar I disorder with duy F31.10 [facility] [id number] [place] [address] 89229- 5682 17 Jan, 2017 Bipolar 2 disorder F31.81 ; Chronic post-traumatic stress disorder (PTSD) F43.12 and Type 2 diabetes mellitus with hyperglycemia E11.65 [place] [address] [place] [address] 19845- 7982 Jan, [place] [id number] [place] [address] 08132- 3023 Jan, [place] [id number] [place] [address] 25910- 4983 14 Jan, 2017 Panic disorder with agoraphobia F40.01 [facility] [id number] [place] [address] 05928- 6202 Jan, Panic disorder with agoraphobia F40.01 ; Bipolar I disorder with mood-congruent psychotic features F31.9 ; Chronic post-traumatic stress disorder (PTSD) F43.12 and Epilepsy G40.909 [facility] [address], [place] [address]- 2145 Jan, [place] [id number] [place] [address] 06348- 254 Jan, [facility] [address] [place] [address] 68723- 7638 10 Jan, 2017 Type 2 diabetes mellitus without complications E11.9 and Hypoglycemia E16.2 [facility] [address], [place] [address]- 2542 07 Jan, 2017 Type 2 diabetes mellitus without complications E11.9 ; Primary insomnia F51.01 and Hypertension, benign I10 [facility] [address] [address]- 9237 Jan, [facility] [id number] [place] [address] [id number] Jan, [facility] [address] [address]- 2201 Dec, Type 2 diabetes mellitus with hyperglycemia E11.65 [facility] [address] [place] [address] 85602- 2918 Dec, [facility] [address] [place] [address] 42045- 3900 Dec, Bipolar 2 disorder F31.81 ; Panic disorder with agoraphobia F40.01 ; Chronic post-traumatic stress disorder (PTSD) F43.12 and Epilepsy G40.909 [facility] [address] [place] [address] 30049- 8252 Dec, [facility] [address] [place] [address] 03237- 5182 Dec, [facility] [address] [place] [address] 22911- 9878 Dec, Bipolar 2 disorder F31.81 ; Panic disorder with agoraphobia F40.01 ; Chronic post-traumatic stress disorder (PTSD) F43.12 and Epilepsy G40.909 [facility] [address] [address]- 7177 Dec, [facility] [address] [address]- 0227 Dec, [facility] [address] [place] [address] 86611- 0029 Dec, [facility] [address] [place] [address] 28848- 1298 Dec, Type 2 diabetes mellitus with hyperglycemia E11.65 ; 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 and Lumbago M54.5 [facility] [address] [place] [address] 53288- 2586 Dec, [facility] [id number] [place] [address] 12782- 9981 Dec, [facility] [id number] [place] [address] 94897- 8967 Dec, [facility] [id number] [place] [address] 02886 -9192 Dec, Pain of left leg M79.605 and Pain in right leg M79.604 [place] [id number] [place] [address] 11964- 7800 Dec, [facility] [id number] [place] [address] 62797- 4257 Dec, Type 2 diabetes mellitus with hyperglycemia E11.65 [place] [id number] [place] [address] 63621- 1417 Dec, [facility] [id number] [place] [address] 63629- 3340 Dec, Type 2 diabetes mellitus with hyperglycemia E11.65 ; USP current use of insulin Z79.4 ; Vagina, candidiasis B37.3 and Other chronic pain G89.29 [place] [id number] [place] [address] 28728- 6689 Nov, Panic disorder with agoraphobia F40.01 [place] [id number] [place] [address] 14138- 5873 Nov, [place] [id number] [place] [address] 66836- 9430 Nov, [place] [id number] [place] [address] 60917- 4877 Nov, Hypoglycemia E16.2 [place] [id number] [place] [address] 39921- 8526 Nov, [facility] [address] [address]- 7267 Nov, [facility] [id number] [place] [address] 51154- 5636 Nov, [facility] [id number] [place] [address] 63954- 6968 Nov, Type 2 diabetes mellitus with hyperglycemia E11.65 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 [facility] [id number] [place] [address] 59351- 0984 Nov, Panic disorder with agoraphobia F40.01 ; Bipolar 2 disorder F31.81 ; Chronic post-traumatic stress disorder (PTSD) F43.12 and Epilepsy G40.909 [place] [id number] [place] [address] 14553- 5121 Nov, Panic disorder with agoraphobia F40.01 [place] [id number] [place] [address] 39818- 3386 Oct, [facility] [id number] [place] [address] 46179- 3091 Oct, [facility] [address] [place] [address] 79786- 4265 Oct, Bipolar 2 disorder F31.81 ; Panic disorder with agoraphobia F40.01 and Mood disorder F39 [facility] [address] [place] [address] 14543- 1892 Oct, Diabetes E11.9 ; Type 2 diabetes mellitus with hyperglycemia E11.65 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 [facility] [address] [place] [address] 51743- 8795 Oct, [facility] [address] [place] [address] 18921- 1844 Sep, [facility] [address] [place] [address] 38902- 7011 Sep, Bipolar 2 disorder F31.81 and Mood disorder F39 [facility] [address] [address]- 6930 Sep, [facility] [id number] [place] [address]6789- 1140 Sep, Uncontrolled type 2 diabetes mellitus without complication, without long-term current use of insulin E11.65 [facility] [id number] [place] [address] 80547- [phone] Sep, [facility] [id number] [place] [address] [id number]- 6147 Sep, [facility] [id number] [place] [address]44- 4343 Sep, [place] [id number] [place] [address] 37112- 4336 Sep, [facility] [id number] [place] [address] 73810- 6333 Sep, Bipolar 2 disorder F31.81 ; Chronic post-traumatic stress disorder (PTSD) F43.12 ; Panic disorder with agoraphobia F40.01 and Epilepsy G40.909 [place] [id number] [place] [address] 68697- 3210 Sep, Bipolar 2 disorder F31.81 ; PTSD (post-traumatic stress disorder) F43.10 and Panic disorder with agoraphobia F40.01 [facility] [id number] [place] [address] 10478- 5241 Sep, [facility] [id number] [place] [address] 58265- 3592 Aug, History of seizures Z87.898 ; Panic disorder with agoraphobia F40.01 and Bipolar 2 disorder F31.81 [facility] [id number] [place] [address] 46492- 2516 Aug, [facility] [id number] [place] [address] [phone]- [phone] 17 Aug, 2016 [facility] [address] [address]- [address]647 11 Aug, 2016 [facility] [address] 98257- 4751 11 Aug, 2016 [facility] [address] [address]24- 0[address] 11 Aug, 2016 [facility] [address] 39660- 4570 10 Aug, 2016 [facility] [address] 27159- 8336 10 Aug, 2016 Hypoglycemia E16.2 and Bilateral impacted cerumen H61.23 [facility] [address] [address]- [address] Aug, [facility] [address] 36201- 6211 21 Jul, 2016 [facility] [address] 08957- 5542 Jul, [facility] [address] 32004- 4150 15 Jul, 2016 Bipolar 2 disorder F31.81 ; Panic disorder with agoraphobia F40.01 ; PTSD (post-traumatic stress disorder) F43.10 and Epilepsy G40.909 [facility] [id number] [place] [address] 80125- 9440 12 Jul, 2016 [facility] [address] 32591- 7279 09 Jul, 2016 Type 2 diabetes mellitus without complications E11.9 and Coughing R05 [facility] [id number] [place] [address] 08246- 6199 06 Jul, 2016 [facility] [id number] [place] [address] 66692- 0728 Jun, [facility] [id number] [place] [address] 76922- 3593 Jun, Bipolar 2 disorder F31.81 ; PTSD (post-traumatic stress disorder) F43.10 and Panic disorder with agoraphobia F40.01 [facility] [id number] [place] [address] 87073- 5228 Jun, [facility] [address] 18539- 7951 Jun, [facility] [id number] [place] [address] 47195- 6038 Jun, [place] [id number] [place] [address] 14952- 6984 Jun, Type 2 diabetes mellitus without complications E11.9 and COPD (chronic obstructive pulmonary disease) J44.9 [facility] [address] [id number] May, Dental examination Z01.20 and Dental caries K02.9 [facility] [id number] [place] [address] 56300- 9015 May, Bipolar 2 disorder F31.81 ; PTSD (post-traumatic stress disorder) F43.10 and Panic disorder with agoraphobia F40.01 [facility] [id number] [place] [address] 42657- 8285 May, Lumbago with sciatica, right side M54.41 ; Other chronic pain G89.29 and Uncontrolled type 2 diabetes mellitus without complication, without long-term current use of insulin E11.65 [facility] [id number] [place] [address] 02020- 0393 May, Chronic bronchitis, unspecified chronic bronchitis type J42 [facility] [id number] [place] [address] 17699- 5890 May, [facility] [id number] [place] [address] 28132- 8131 May, [place] [id number] [place] [address] 27363- 7484 May, Chest pain, unspecified type R07.9 ; Tobacco use Z72.0 ; Type 2 diabetes mellitus without complications E11.9 ; Essential hypertension I10 ; Hyperlipidemia, unspecified hyperlipidemia type E78.5 ; Obesity (BMI 30- 39.9) E66.9 ; History of hypothyroidism Z86.39 ; Chronic obstructive pulmonary disease, unspecified COPD type J44.9 ; Anxiety F41.9 ; Bilateral claudication of lower limb I73.9 and Bipolar 2 disorder F31.81 [place] [id number] [place] [address] 96101- 2597 May, Bipolar 2 disorder F31.81 ; Panic disorder with agoraphobia F40.01 and Tobacco abuse Z72.0 [place] [address] 81908- 3165 Apr, [address] 23388- 5321 Apr, [place] [id number] [place] [address] 48173- 9525 Apr, [place] [id number] [place] [address] 00847- 4100 Apr, Bipolar 2 disorder F31.81 ; Panic disorder with agoraphobia F40.01 and PTSD (post-traumatic stress disorder) F43.10 [place] [id number] [place] [address] 08400- 1064 Apr, Chronic bronchitis, unspecified chronic bronchitis type J42 ; Cervical neuritis M54.12 and Thoracic neuritis M54.[address] 22432- 6909 Apr, [place] [id number] [place] [address] 18506- 0154 Apr, Cervicalgia M54.[address] 35047- 1568 14 Apr, 2016 Bipolar 2 disorder F31.81 ; Panic disorder with agoraphobia F40.01 and PTSD (post-traumatic stress disorder) F43.10 [facility] [id number] [place] [address] 66953 -3600 13 Apr, 2016 [facility] [id number] [place] [address] 91090 -0179 09 Apr, 2016 Cough R05 and Tobacco dependence F17.200 [facility] [id number] [place] [address] 41302- 5212 Apr, [place] [id number] [place] [address] 13876- 0708 Apr, [place] [id number] [place] [address] 29005- 5019 March, Bipolar 2 disorder F31.81 ; Panic disorder with agoraphobia F40.01 and Generalized anxiety disorder F41.1 [place] [id number] [place] [address] 37449- 6329 March, Closed displaced fracture of fifth metatarsal bone of right foot with routine healing, subsequent encounter S92.351D [place] [id number] [place] [address] 03357- 2176 March, Bronchitis J40 [place] [id number] [place] [address] 28932- 9886 March, [place] [id number] [place] [address] 63490- 5099 March, [place] [id number] [place] [address] 13649- 0750 March, Foot pain, right M79.671 ; Cervicalgia M54.2 and 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 mellitus without complication, 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 insulin use status 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.9 [place] [id number] [place] [address] 44538- 4857 March, Fracture of fifth metatarsal bone of right foot S92.351A [facility] [id number] [place] [address] 58402- 7858 March, [place] [id number] [place] [address] 61009- 8068 Jan, Fracture of fifth metatarsal bone of right foot S92.351A [place] [id number] [place] [address] 91708- 1701 Jan, Bipolar 2 disorder F31.81 ; PTSD (post-traumatic stress disorder) F43.10 ; Panic disorder with agoraphobia F40.01 and Epilepsy G40.909 [place] [id number] [place] [address] 64076- 0754 Jan, History of PR (myocardial infarction) I25.2 and History of high cholesterol Z86.39 [place] [address] 74502- 7591 Jan, Bipolar 2 disorder F31.81 ; Panic disorder with agoraphobia F40.01 ; Tobacco abuse Z72.0 and PTSD (post-traumatic stress disorder) F43.10 [place] [id number] [place] [address] 61769- 8734 Jan, Fracture of fifth metatarsal bone of right foot S92.351A [place] [id number] [place] [address] 44620- 3599 Jan, [place] [id number] [place] [address] 29250- 5426 Jan, History of high cholesterol Z86.39 [place] [id number] [place] [address] 11509- 7587 Jan, History of PR (myocardial infarction) I25.2 [place] [id number] [place] [address] 04207- 3375 Jan, [facility] [id number] [place] [address] 00061- 3525 Dec, Back pain M54.9 ; Diabetes E11.9 ; Right knee pain M25.561 and Chest pain R07.9 [place] [address] 24631- 7100 Dec, [place] [id number] [place] [address] 59917- 6697 Dec, [place] [address] 38254- 1693 Dec, Cervicalgia M54.2 [place] [address] 95256- 8659 Dec, Bipolar 2 disorder F31.81 ; PTSD (post-traumatic stress disorder) F43.10 ; Panic disorder with agoraphobia F40.01 and Epilepsy G40.909 [place] [address] 69455- 4833 Dec, Bipolar 2 disorder F31.81 ; PTSD (post-traumatic stress disorder) F43.10 and Panic disorder with agoraphobia F40.01 [place] [address] 53014- 8162 Dec, Diabetes E11.9 [place] [id number] [place] [address] 16467- 1878 Dec, [place] [id number] [place] [address] 07279- 9470 Dec, Other chronic pain G89.29 ; Hepatitis C B19.20 and History of seizures Z87.898 [place] [id number] [place] [address] 87214- 6829 Dec, [place] [address] 27802- 9693 Dec, Bipolar 2 disorder F31.81 and Other chronic pain G89.29 [place] [id number] [place] [address] 38020- 1520 Dec, Cervicalgia M54.2 and Diabetes E11.9 [facility] [id number] [place] [address] 85137- 1972 Dec, [facility] [address] 85078- 3956 Dec, [facility] [address] 78539- 5277 Dec, [facility] [address] 70724- 6026 Dec, [facility] [address] 14327- 9244 Dec, Type 2 diabetes mellitus without complications E11.9 [place] [address] 66095- 6110 Dec, [facility] [address] 17110- 1980 Dec, History of seizures Z87.898 and Hepatitis C B19.20 [place] [address] 18899- 9908 Dec, Hepatitis C B19.20 [place] [address] 70507- 7364 Dec, [facility] [id number] [place] [address] 26687- 8375 Dec, Cervicalgia M54.2 ; COPD (chronic obstructive pulmonary disease) J44.9 and Hepatitis C B19.20 [place] [id number] [place] [address] 70439- 8871 Dec, Bipolar 2 disorder F31.81 ; History of hypertension Z86.79 ; History of anxiety Z86.59 ; Panic disorder with agoraphobia F40.01 and Epilepsy G40.909 [facility] [address] 39109- 4041 Nov, [facility] [address] [place] [address] 50869- 5374 Nov, [place] 248681- 4181 Nov, History of seizures Z87.898 ; OAB (overactive bladder) N32.81 ; Lumbago M54.5 ; Other chronic pain G89.29 ; Cervicalgia M54.2 ; Tobacco abuse Z72.0 ; Tobacco abuse counseling Z71.6 and Impaired fasting glucose R73.01 [place] [id number] [place] [address] 35298- 3054 Nov, Bipolar 2 disorder F31.81 ; PTSD (post-traumatic stress disorder) F43.10 ; History of anxiety Z86.59 ; History of COPD Z87.09 ; Panic disorder with agoraphobia F40.01 and Moderate depressed bipolar I disorder F31.32 [place] [id number] [place] [address] 23404- 7430 12 Nov, 2015 PTSD (post-traumatic stress disorder) F43.10 [facility] [id number] [place] [address] [id number] 11 Nov, 2015 Dental examination Z01.20 and Dental caries K02.9 [place] [id number] [place] [address] 48983- 9929 08 Nov, 2015 History of hypertension Z86.79 ; History of hypothyroidism Z86.39 ; History of high cholesterol Z86.39 ; History of COPD Z87.09 and Overactive bladder N32.81 [place] [address] [place] [address] 85978- 3134 Nov, Bipolar 2 disorder F31.81 and PTSD (post-traumatic stress disorder) F43.10 [place] [id number] [place] [address] 42092- 3534 Nov, PTSD (post-traumatic stress disorder) F43.10 ; Panic disorder with agoraphobia F40.01 ; Epilepsy G40.909 and Moderate depressed bipolar I disorder F31.32 [place] [address] [place] [address] 60161- 3060 Nov, [place] [id number] [place] [address] 00168- 8253 Nov, [place] [id number] [place] [address] 42748- 6600 Oct, [place] [address] 14424- 2809 Oct, Generalized anxiety disorder F41.1 ; Major depression, recurrent F33.9 and PTSD (post-traumatic stress disorder) F43.10 [place] [id number] [place] [address] 00255- 8453 Oct, Elevated fasting glucose R73.01 [place] [id number] [place] [address] 98043- 5381 Oct, Elevated fasting glucose R73.01 [place] [id number] [place] [address] 93389- 9670 Oct, History of COPD Z87.09 [place] [id number] [place] [address] 25770- 4732 Oct, General medical exam Z00.00 ; History of hypertension Z86.79 ; History of hypothyroidism Z86.39 ; History of hepatitis Z86.19 ; History of high cholesterol Z86.39 and History of seizures Z87.898 [place] [address] [place] [address] 75851- 0045 Oct, General medical exam Z00.00 ; History of hypertension Z86.79 ; History of hypothyroidism Z86.39 ; Bipolar 2 disorder F31.81 ; PTSD ( post-traumatic stress disorder) F43.10 ; History of hepatitis Z86.19 ; History of high cholesterol Z86.39 ; History of anxiety Z86.59 ; History of seizures Z87.898 ; History of PR (myocardial infarction) I25.2 and History of COPD Z87.09 [facility] [id number] [address]- 5699 Oct, Generalized anxiety disorder F41.1 ; Depression F32.9 and PTSD (post-traumatic stress disorder) F43.10 [facility] [id number] [address]- 1174 Jan, [facility] [address] [address]- 9080 Jan, [facility] [address] [address]- 2465 Jun, [address] [id number] Jun, [facility] [address] [address]- 9181 May, [facility] [address] [address]- 3668 May, [address] [id number] May, [facility] [id number] [address]- 1933 May, [address] [id number] May, [facility] [id number] [address]- 9386 May, IMMUNIZATIONS No Known Immunizations SOCIAL HISTORY Never Assessed REASON FOR VISIT xanax refill 03/03/2018 PLAN OF CARE VITAL SIGNS MEDICATIONS Medication Instructions Dosage Frequency Start Date End Date Duration Status Xanax 2 MG Orally 3 times a day 1 tablet 8h 30 days Active RESULTS No Results PROCEDURES No Known procedures INSTRUCTIONS MEDICATIONS ADMINISTERED No Known Medications MEDICAL (GENERAL) HISTORY Type Description Date Medical History Hypothyroidism Medical History High cholesterol Medical History Hypertension Medical History Brain seizure Medical History Asthma Medical History COPD Medical History Hep C -2005 Medical History PR x 2 last in 2009 Medical History PTSD (post-traumatic stress disorder) Medical History Colon Cancer 2016 Medical History diabites II Surgical History tonsillectomy 1985 Surgical History partial hysterectomy 2004 Surgical History appendectomy 2004 Hospitalization History Surgery(s) only Hospitalization History pneumonia x3 days Hospitalization History Heart cath with stint 05/15/2016 Hospitalization History Diverticulitis, N/V-[facility] 01/28/17
--- OUTSIDE RECORDS SUMMARY | 2019-01-26 08:06 | XMS REPORT ---
Author Author FRANK LUNA Organization [facility] Address [address] [place] [address] Care Team Providers Care Buyer Name Role Phone FRANK LUNA Unavailable PROBLEMS Type Condition ICD9-CM Code QIF89-CG Code Onset Dates Condition Status SNOMED Code Problem OAB (overactive bladder) N32.81 Active 305462711 Problem Epilepsy G40.909 Active 40806989 Problem Cervicalgia M54.2 Active 91351437 Problem Other chronic pain G89.29 Active 41195836 Problem Tobacco abuse Z72.0 Active 02784508 Problem Lumbago M54.5 Active 780975854 Problem Hepatitis C B19.20 Active 91305069 Problem COPD (chronic obstructive pulmonary disease) J44.9 Active 04187758 Problem Diabetes E11.9 Active 95025080 Problem Bipolar I disorder with duy F31.10 Active 88910907 Problem Type 2 diabetes mellitus without complications E11.9 Active 808420488 Problem Stress incontinence of urine N39.3 Active 20819430 Problem Bilateral claudication of lower limb I73.9 Active 431387798 Problem Seasonal allergic rhinitis due to other allergic trigger J30.89 Active 080854818 Problem Hyperlipidemia, unspecified hyperlipidemia type E78.5 Active 08954942 Problem Hypertension, unspecified type I10 Active 25358536 Problem Chronic tension-type headache, not intractable G44.229 Active 079663590 Problem 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 mellitus without complication, without long -term current use of insulin E11.9 Active 474274676 Problem Type 2 diabetes mellitus with hyperglycemia E11.65 Active 333976990 Problem Chronic post-traumatic stress disorder (PTSD) F43.12 Active 529713354 Problem History of hypothyroidism Z86.39 Active 137119914 Problem Hypoglycemia E16.2 Active 017089007 Problem El's esophageal ulceration K22.10 Active 827949046 Problem Bipolar affective disorder, currently depressed, mild F31.31 Active 398916913 Problem Irritable bowel syndrome with diarrhea K58.0 Active 297802572 Problem Stress incontinence N39.3 Active 59344449 Problem History of hypertension Z86.79 Active 080330401 Problem Uncontrolled type 2 diabetes mellitus without complication, without long-term current use of insulin E11.65 Active 188424959 Problem Panic disorder with agoraphobia F40.01 Active 05578700 Problem Type 2 diabetes mellitus with hyperglycemia E11.65 Active 931942048 Problem History of seizures Z87.898 Active 749532135 Problem long-term current use of insulin Z79.4 Active 358046326 Problem History of [place] (myocardial infarction) I25.2 Active 406096459 Problem Mood disorder F39 Active 94097117 Problem Bipolar 2 disorder F31.81 Active 89976306 Problem Gastritis and duodenitis K29.90 Active 056363191 Problem History of high cholesterol Z86.39 Active 355535943 Problem Bipolar I disorder with mood-congruent psychotic features F31.9 Active 554896324 Problem Hypertension, benign I10 Active 37462967 Problem Primary insomnia F51.01 Active 4979634 ALLERGIES No Information ENCOUNTERS Encounter Location Date Diagnosis [facility] [address] [address] Jun, [facility] [address] 08[address]- 1710 Jun, [facility] [address] 8[address]- 3618 Jun, [facility] [id number] [place] [address] 83004- 4205 May, Lumbago M54.5 [facility] [id number] [place] [address] [id number] May, [facility] [address] 62646- 8340 May, [facility] [id number] [place] [address] 46757- 3861 May, [facility] [id number] [place] [address] 75108- 7671 May, [facility] [address] [address] 8221 May, [facility] [id number] [place] [address] 70002- 3564 May, [facility] [id number] [place] [address] 49868- 8183 May, [facility] [id number] [place] [address] 32541- 1351 May, Lumbago M54.5 [facility] [address] [place] [address] 60639- 3344 May, [facility] [id number] [place] [address] 85716- [address] Apr, [address] of the chest R93.8 [place] [id number] [place] [address] 46241- 5532 Apr, Bipolar 2 disorder F31.81 ; Chronic post-traumatic stress disorder (PTSD) F43.12 and Panic disorder with agoraphobia F40.01 [place] [id number] [place] [address] 40325- [address] Apr, [address] of the chest R93.8 [place] [address] [place] [address] 08059- [address] Apr, [address] of the chest R93.8 [place] [address] [place] [address] 15674- 8120 Apr, [facility] [address] [place] [address] 99611- 5332 Apr, Type 2 diabetes mellitus with hyperglycemia E11.65 [place] [address] [place] [address] 37413- 6203 Apr, 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 mellitus without complication, without long-term current use of insulin E11.9 ; Watery eyes H04.203 ; Low back pain M54.5 ; Other chronic pain G89.29 ; Chronic tension-type headache, not intractable G44.229 ; Uncontrolled type 2 diabetes mellitus without complication , without long-term current use of insulin E11.65 and Bronchitis J40 [place] [id number] [place] [address] 63050- 8409 Apr, [place] [address] 33215- 5167 Apr, Lumbago M54.5 [place] [address] 50633- 1585 March, [facility] [address] [address] March, Cough R05 ; Pneumonia due to infectious organism, unspecified laterality, unspecified part of lung J18.9 and Non-intractable vomiting with nausea, unspecified vomiting type R11.2 [place] [address] 23198- 1908 March, Bronchitis J40 [place] [address] 25399- 6696 March, [place] [address] 51626- 6792 March, El's esophageal ulceration K22.10 and Type 2 diabetes mellitus with hyperglycemia E11.65 [place] [id number] [place] [address] 93948- 1232 March, Panic disorder with agoraphobia F40.01 ; Chronic post- traumatic stress disorder (PTSD) F43.12 and Bipolar 2 disorder F31.81 [place] [id number] [place] [address] 26179- 4379 March, Type 2 diabetes mellitus with hyperglycemia E11.65 [facility] [facility] [id number] [place] [address] 18480- 1269 March, [place] [address] 88706- 2742 March, Lumbago M54.5 [place] [facility] [id number] [place] [address] 14681- 5980 March, [facility] [facility] [address] 81123- 5864 March, Irritable bowel syndrome with diarrhea K58.0 ; Primary insomnia F51.01 ; Type 2 diabetes mellitus with hyperglycemia E11.65 and long-term current use of insulin Z79.4 [place] [address] 10629- 3086 March, [place] [address] 90313- 9000 Jan, [place] [address] 34681- 5410 Jan, [place] [address] 91539- 3414 Jan, [place] [id number] [place] [address] 87679- 6431 Jan, [place] [id number] [place] [address] 85777- 4986 Jan, Dizziness R42 [place] [id number] [place] [address] 89636- 7442 Jan, Bipolar affective disorder, currently depressed, mild F31.31 ; Panic disorder with agoraphobia F40.01 and Chronic post-traumatic stress disorder (PTSD) F43.12 [place] [id number] [place] [address] 57891- 8203 Jan, Dizziness R42 [place] [id number] [place] [address] 83968- 9840 Jan, Chest pain, unspecified type R07.9 ; Exertional dyspnea R06.09 ; Hypertension, unspecified type I10 and Hyperlipidemia, unspecified hyperlipidemia type E78.5 [place] [id number] [place] [address] 44183- 9468 Jan, [facility] [id number] [place] [address] 41341- 6383 09 Jan, 2018 Lumbago M54.5 [place] [id number] [place] [address] 13973- 6428 04 Jan, 2018 El's esophageal ulceration K22.10 ; Blister (nonthermal ) of oral cavity, initial encounter S00.522A ; Local infection of the skin and subcutaneous tissue, unspecified L08.9 ; Type 2 diabetes mellitus with hyperglycemia E11.65 ; long-term current use of insulin Z79.4 and Stress incontinence N39.3 [place] [address] 47766- 4915 27 Dec, 2017 [place] [id number] [place] [address] 98627- 5103 27 Dec, 2017 [place] [address] 23032- 5265 19 Dec, 2017 [facility] [id number] [place] [address] [id number] 16 Dec, 2017 Dental examination Z01.20 [place] [id number] [place] [address] 00498- 2866 15 Dec, 2017 Acute pain of right knee M25.561 [place] [id number] [place] [address] 64451- 7186 14 Dec, 2017 [place] [id number] [place] [address] 15273- 1737 14 Dec, 2017 [place] [id number] [place] [address] 90126- 6922 14 Dec, 2017 Lumbago M54.5 ; Acute pain of right knee M25.561 and Seasonal allergic rhinitis due to other allergic trigger J30.89 [place] [address] [place] [address] 78557- 7647 12 Dec, 2017 Type 2 diabetes mellitus with hyperglycemia E11.65 [place] [address] [address]- 1311 Dec, [facility] [id number] [place] [address] 54178- 9715 Dec, [facility] [id number] [place] [address] 41355- 7009 Dec, [facility] [id number] [place] [address] 62431- 9086 Dec, [facility] [id number] [place] [address] 29272- 6796 Dec, Chronic post-traumatic stress disorder (PTSD) F43.12 and Panic disorder with agoraphobia F40.01 [facility] [id number] [place] [address] 81033- 5787 13 Dec, 2017 Low back pain M54.5 [facility] [id number] [place] [address] 31116- 2130 Dec, Type 2 diabetes mellitus with hyperglycemia E11.65 ; 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 ; Low back pain M54.5 ; Other chronic pain G89.29 and Encounter for therapeutic drug level monitoring Z51.81 [facility] [address] [place] [address] 01478- 7207 09 Dec, 2017 Coughing R05 [facility] [id number] [place] [address] 71564- 3248 Dec, [facility] [address] [place] [address] 650770001 07 Dec, 2017 Dental examination Z01.20 [facility] [id number] [place] [address] 10816- 6867 Nov, Type 2 diabetes mellitus without complications E11.9 and Encounter for therapeutic drug level monitoring Z51.81 [facility] [address] [place] [address] 23594- 6830 Nov, [facility] [address] [address]- 4292 Oct, Type 2 diabetes mellitus without complications E11.9 [facility] [id number] [place] [address] 55225- 9851 Oct, Type 2 diabetes mellitus with hyperglycemia E11.65 [facility] [id number] [address]- 6118 Aug, Type 2 diabetes mellitus without complications E11.9 [facility] [id number] [place] [address] 39603- 5086 Aug, Type 2 diabetes mellitus without complications E11.9 ; Hypoglycemia E16.2 ; Lumbago M54.5 ; Stress incontinence of urine N39.3 and History of AZ (myocardial infarction) I25.2 [place] [id number] [address]- 0903 Jun, [place] [id number] [place] [address] 54869- 4619 May, [place] [id number] [place] [address] 82753- 6818 Apr, Panic disorder with agoraphobia F40.01 [place] [address] [address]- 5988 Apr, Panic disorder with agoraphobia F40.01 [place] [address] [address]- 8060 Apr, [place] [id number] [place] [address] 43288- 5541 March, Other chronic pain G89.29 [place] [id number] [place] [address] 80651- 3257 March, [facility] [address] [address]- 1409 March, [place] [id number] [place] [address] 32827- 0557 March, [place] [address] [address]- 8827 March, [place] [id number] [place] [address] 88784- 1062 March, Type 2 diabetes mellitus without complications E11.9 [place] [id number] [address]- 5966 March, Diarrhea, unspecified type R19.7 [place] [id number] [address]- 9289 March, Bipolar 2 disorder F31.81 ; Chronic post-traumatic stress disorder (PTSD) F43.12 and Type 2 diabetes mellitus with hyperglycemia E11.65 [place] [address] [address]- 2393 March, [place] [id number] [place] [address] 18557- 5115 March, [place] [address] [address]- 8247 09 Mar, 2017 Hypertension, benign I10 ; Type 2 diabetes mellitus with hyperglycemia E11.65 ; Hepatitis C B19.20 ; Gastritis and duodenitis K29.90 and Dysuria R30.0 [place] [address] [address]- 5199 08 Mar, 2017 Hypertension, benign I10 ; Type 2 diabetes mellitus with hyperglycemia E11.65 ; Hepatitis C B19.20 ; Gastritis and duodenitis K29.90 and Dysuria R30.0 [place] [address] [address]- 7278 March, Panic disorder with agoraphobia F40.01 ; Chronic post- traumatic stress disorder (PTSD) F43.12 ; Epilepsy G40.909 and Bipolar I disorder with mood-congruent psychotic features F31.9 [place] [address] [address]- 7876 March, [place] [address] [address]- 8010 March, Type 2 diabetes mellitus with hyperglycemia E11.65 [place] [id number] [place] [address] 89913 2546 18 Jan, 2017 Bipolar I disorder with duy F31.10 [facility] [id number] [place] [address] 53460- 9228 17 Jan, 2017 Bipolar 2 disorder F31.81 ; Chronic post-traumatic stress disorder (PTSD) F43.12 and Type 2 diabetes mellitus with hyperglycemia E11.65 [place] [address] [place] [address] 42977- 1428 Jan, [place] [id number] [place] [address] 78247- 7981 Jan, [place] [id number] [place] [address] 14779- 9377 14 Jan, 2017 Panic disorder with agoraphobia F40.01 [place] [id number] [place] [address] 20223- 2744 Jan, Panic disorder with agoraphobia F40.01 ; Bipolar I disorder with mood-congruent psychotic features F31.9 ; Chronic post-traumatic stress disorder (PTSD) F43.12 and Epilepsy G40.909 [place] [address] [address]- 2331 Jan, [place] [id number] [place] [address] 91516- 2541 Jan, [facility] [address] [place] [address] 66612- 9993 10 Jan, 2017 Type 2 diabetes mellitus without complications E11.9 and Hypoglycemia E16.2 [place] [address] [address]- 2543 07 Jan, 2017 Type 2 diabetes mellitus without complications E11.9 ; Primary insomnia F51.01 and Hypertension, benign I10 [place] [address] [address]- 8991 Jan, [facility] [id number] [place] [address] [id number] Jan, [facility] [address] [address]- 6919 Dec, Type 2 diabetes mellitus with hyperglycemia E11.65 [facility] [address] [place] [address] 30891- 5449 Dec, [facility] [address] [place] [address] 91493- 8190 Dec, Bipolar 2 disorder F31.81 ; Panic disorder with agoraphobia F40.01 ; Chronic post-traumatic stress disorder (PTSD) F43.12 and Epilepsy G40.909 [place] [address] [place] [address] 94567- 7993 Dec, [facility] [address] [place] [address] 49222- 3516 Dec, [facility] [address] [place] [address] 83309- 7949 Dec, Bipolar 2 disorder F31.81 ; Panic disorder with agoraphobia F40.01 ; Chronic post-traumatic stress disorder (PTSD) F43.12 and Epilepsy G40.909 [facility] [address] [address]- 6861 Dec, [facility] [address] [address]- 8282 Dec, [facility] [address] [place] [address] 66116- 1772 Dec, [facility] [address] [place] [address] 38015- 1627 Dec, Type 2 diabetes mellitus with hyperglycemia E11.65 ; 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 and Lumbago M54.5 [facility] [address] [place] [address] 18326- 7503 Dec, [facility] [id number] [place] [address] 60640- 2634 Dec, [facility] [id number] [place] [address] 13261- 3975 Dec, [facility] [id number] [place] [address] 56226 -7492 Dec, Pain of left leg M79.605 and Pain in right leg M79.604 [place] [id number] [place] [address] 66440- 7349 Dec, [place] [id number] [place] [address] 68884- 4853 Dec, Type 2 diabetes mellitus with hyperglycemia E11.65 [place] [id number] [place] [address] 37784- 9267 Dec, [facility] [id number] [place] [address] 83132- 4076 Dec, Type 2 diabetes mellitus with hyperglycemia E11.65 ; long-term current use of insulin Z79.4 ; Vagina, candidiasis B37.3 and Other chronic pain G89.29 [place] [id number] [place] [address] 63077- 9288 Nov, Panic disorder with agoraphobia F40.01 [place] [id number] [place] [address] 92748- 5741 Nov, [place] [id number] [place] [address] 76137- 9605 Nov, [place] [id number] [place] [address] 15337- 8094 Nov, Hypoglycemia E16.2 [place] [id number] [place] [address] 25804- 1899 Nov, [place] [address] [address]- 0782 Nov, [facility] [id number] [place] [address] 42601- 2530 Nov, [facility] [id number] [place] [address] 11032- 2949 Nov, Type 2 diabetes mellitus with hyperglycemia E11.65 and 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 [facility] [id number] [place] [address] 53374- 2413 Nov, Panic disorder with agoraphobia F40.01 ; Bipolar 2 disorder F31.81 ; Chronic post-traumatic stress disorder (PTSD) F43.12 and Epilepsy G40.909 [place] [id number] [place] [address] 99929- 5882 Nov, Panic disorder with agoraphobia F40.01 [place] [id number] [place] [address] 95055- 0516 Oct, [facility] [id number] [place] [address] 53312- 7550 Oct, [place] [address] [place] [address] 80013- 2821 Oct, Bipolar 2 disorder F31.81 ; Panic disorder with agoraphobia F40.01 and Mood disorder F39 [facility] [address] [place] [address] 51741- 3677 Oct, Diabetes E11.9 ; Type 2 diabetes mellitus with hyperglycemia E11.65 and 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 [facility] [address] [place] [address] 27004- 3542 Oct, [facility] [address] [place] [address] 63034- 7291 Sep, [facility] [address] [place] [address] 78820- 9472 Sep, Bipolar 2 disorder F31.81 and Mood disorder F39 [facility] [address] [address]- 8175 Sep, [facility] [address] [place] [address] 52533- 5166 Sep, Uncontrolled type 2 diabetes mellitus without complication, without long-term current use of insulin E11.65 [facility] [id number] [place] [address] 18371- 5186 Sep, [facility] [id number] [place] [address] 32679- 4210 Sep, [facility] [id number] [place] [address] 47390- 6488 Sep, [place] [id number] [place] [address] 33939- 6971 Sep, [facility] [id number] [place] [address] 43602- 6797 Sep, Bipolar 2 disorder F31.81 ; Chronic post-traumatic stress disorder (PTSD) F43.12 ; Panic disorder with agoraphobia F40.01 and Epilepsy G40.909 [place] [id number] [place] [address] 41129- 0616 Sep, Bipolar 2 disorder F31.81 ; PTSD (post-traumatic stress disorder) F43.10 and Panic disorder with agoraphobia F40.01 [facility] [address] [place] [address] 51559- 0810 Sep, [facility] [address] [place] [address] 93119- 6393 Aug, History of seizures Z87.898 ; Panic disorder with agoraphobia F40.01 and Bipolar 2 disorder F31.81 [facility] [address] [place] [address] 15006- 3080 Aug, [facility] [id number] [place] [address] [id number]- [id number] 17 Aug, 2016 [facility] [address] [address] 11 Aug, 2016 [facility] [address] 18[address]- [address] 11 Aug, 2016 [facility] [address] [address]- [address] 11 Aug, 2016 [facility] [address] [address]- [address] 10 Aug, 2016 [facility] [address] 25[address]- [address] 10 Aug, 2016 Hypoglycemia E16.2 and Bilateral impacted cerumen H61.23 [facility] [address] [address]- [address] Aug, [facility] [address] [address] 21 Jul, 2016 [facility] [address] [address]- [address] Jul, [facility] [address] [address]- [address] 15 Jul, 2016 Bipolar 2 disorder F31.81 ; Panic disorder with agoraphobia F40.01 ; PTSD (post-traumatic stress disorder) F43.10 and Epilepsy G40.909 [facility] [id number] [place] [address] 35284- 4482 12 Jul, 2016 [facility] [address] 06706- 0891 09 Jul, 2016 Type 2 diabetes mellitus without complications E11.9 and Coughing R05 [facility] [id number] [place] [address] 06207- 1020 06 Jul, 2016 [facility] [id number] [place] [address] 56198- 9316 Jun, [facility] [id number] [place] [address] 19250- 9691 Jun, Bipolar 2 disorder F31.81 ; PTSD (post-traumatic stress disorder) F43.10 and Panic disorder with agoraphobia F40.01 [facility] [id number] [place] [address] 77172- 7207 Jun, [facility] [address] 73919- 0668 Jun, [facility] [id number] [place] [address] 82581- 9413 Jun, [place] [id number] [place] [address] 62553- 2973 Jun, Type 2 diabetes mellitus without complications E11.9 and COPD (chronic obstructive pulmonary disease) J44.9 [facility] [address] [id number] May, Dental examination Z01.20 and Dental caries K02.9 [facility] [id number] [place] [address] 44006- 4778 May, Bipolar 2 disorder F31.81 ; PTSD (post-traumatic stress disorder) F43.10 and Panic disorder with agoraphobia F40.01 [facility] [id number] [place] [address] 34832- 0358 May, Lumbago with sciatica, right side M54.41 ; Other chronic pain G89.29 and Uncontrolled type 2 diabetes mellitus without complication, without long-term current use of insulin E11.65 [facility] [id number] [place] [address] 59327- 1474 May, Chronic bronchitis, unspecified chronic bronchitis type J42 [facility] [id number] [place] [address] 91364- 2387 May, [facility] [id number] [place] [address] 02925- 2201 May, [place] [id number] [place] [address] 38131- 1405 May, Chest pain, unspecified type R07.9 ; Tobacco use Z72.0 ; Type 2 diabetes mellitus without complications E11.9 ; Essential hypertension I10 ; Hyperlipidemia, unspecified hyperlipidemia type E78.5 ; Obesity (BMI 30- 39.9) E66.9 ; History of hypothyroidism Z86.39 ; Chronic obstructive pulmonary disease, unspecified COPD type J44.9 ; Anxiety F41.9 ; Bilateral claudication of lower limb I73.9 and Bipolar 2 disorder F31.81 [place] [id number] [place] [address] 27782- 5664 May, Bipolar 2 disorder F31.81 ; Panic disorder with agoraphobia F40.01 and Tobacco abuse Z72.0 [place] [address] 50817- 0188 Apr, [address] 09267- 9775 Apr, [place] [id number] [place] [address] 58945- 7816 Apr, [place] [id number] [place] [address] 90319- 0531 Apr, Bipolar 2 disorder F31.81 ; Panic disorder with agoraphobia F40.01 and PTSD (post-traumatic stress disorder) F43.10 [place] [id number] [place] [address] 90941- 0954 Apr, Chronic bronchitis, unspecified chronic bronchitis type J42 ; Cervical neuritis M54.12 and Thoracic neuritis M54.[address] 80432- 2951 Apr, [address] [id number] [place] [address] 60252- 1277 Apr, Cervicalgia M54.[address] 29559- 7668 14 Apr, 2016 Bipolar 2 disorder F31.81 ; Panic disorder with agoraphobia F40.01 and PTSD (post-traumatic stress disorder) F43.10 [facility] [id number] [place] [address] 03999 -5405 13 Apr, 2016 [facility] [id number] [place] [address] 84829 -8565 09 Apr, 2016 Cough R05 and Tobacco dependence F17.200 [facility] [id number] [place] [address] 97994- 7600 Apr, [place] [id number] [place] [address] 89859- 4483 Apr, [place] [id number] [place] [address] 91559- 6234 March, Bipolar 2 disorder F31.81 ; Panic disorder with agoraphobia F40.01 and Generalized anxiety disorder F41.1 [place] [id number] [place] [address] 37824- 8106 March, Closed displaced fracture of fifth metatarsal bone of right foot with routine healing, subsequent encounter S92.351D [place] [id number] [place] [address] 22219- 3955 March, Bronchitis J40 [place] [id number] [place] [address] 87286- 5172 March, [place] [id number] [place] [address] 84542- 2138 March, [place] [id number] [place] [address] 03234- 6310 March, Foot pain, right M79.671 ; Cervicalgia M54.2 and 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 mellitus without complication, 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 [place] [id number] [place] [address] 47348- 6196 March, Fracture of fifth metatarsal bone of right foot S92.351A [facility] [id number] [place] [address] 15231- 3547 March, [place] [id number] [place] [address] 18877- 6276 Jan, Fracture of fifth metatarsal bone of right foot S92.351A [place] [id number] [place] [address] 50892- 4221 Jan, Bipolar 2 disorder F31.81 ; PTSD (post-traumatic stress disorder) F43.10 ; Panic disorder with agoraphobia F40.01 and Epilepsy G40.909 [place] [id number] [place] [address] 10681- 8021 Jan, History of [place] (myocardial infarction) I25.2 and History of high cholesterol Z86.39 [place] [address] 61263- 8595 Jan, Bipolar 2 disorder F31.81 ; Panic disorder with agoraphobia F40.01 ; Tobacco abuse Z72.0 and PTSD (post-traumatic stress disorder) F43.10 [place] [id number] [place] [address] 22610- 1758 Jan, Fracture of fifth metatarsal bone of right foot S92.351A [place] [id number] [place] [address] 46089- 3525 Jan, [place] [id number] [place] [address] 29275- 8281 Jan, History of high cholesterol Z86.39 [place] [id number] [place] [address] 56936- 6334 Jan, History of [place] (myocardial infarction) I25.2 [place] [id number] [place] [address] 48654- 6569 Jan, [facility] [id number] [place] [address] 72843- 7664 Dec, Back pain M54.9 ; Diabetes E11.9 ; Right knee pain M25.561 and Chest pain R07.9 [place] [address] 18234- 9581 Dec, [place] [id number] [place] [address] 64171- 0737 Dec, [place] [address] 87053- 8797 Dec, Cervicalgia M54.2 [place] [address] 77838- 3030 Dec, Bipolar 2 disorder F31.81 ; PTSD (post-traumatic stress disorder) F43.10 ; Panic disorder with agoraphobia F40.01 and Epilepsy G40.909 [place] [address] 75651- 3353 Dec, Bipolar 2 disorder F31.81 ; PTSD (post-traumatic stress disorder) F43.10 and Panic disorder with agoraphobia F40.01 [place] [address] 40667- 8190 Dec, Diabetes E11.9 [place] [id number] [place] [address] 35525- 3843 Dec, [place] [id number] [place] [address] 93609- 7429 Dec, Other chronic pain G89.29 ; Hepatitis C B19.20 and History of seizures Z87.898 [place] [id number] [place] [address] 92791- 4627 Dec, [place] [address] 00917- 9548 Dec, Bipolar 2 disorder F31.81 and Other chronic pain G89.29 [place] [id number] [place] [address] 55830- 6498 Dec, Cervicalgia M54.2 and Diabetes E11.9 [facility] [id number] [place] [address] 47345- 8821 Dec, [facility] [address] 30363- 3264 Dec, [facility] [address] 26010- 6893 Dec, [facility] [address] 28342- 0788 Dec, [facility] [address] 54404- 2305 Dec, Type 2 diabetes mellitus without complications E11.9 [place] [address] 49029- 2833 Dec, [facility] [address] 29087- 8452 Dec, History of seizures Z87.898 and Hepatitis C B19.20 [place] [address] 24307- 2530 Dec, Hepatitis C B19.20 [place] [address] 06386- 4259 Dec, [facility] [id number] [place] [address] 10970- 3592 Dec, Cervicalgia M54.2 ; COPD (chronic obstructive pulmonary disease) J44.9 and Hepatitis C B19.20 [place] [id number] [place] [address] 34538- 1455 Dec, Bipolar 2 disorder F31.81 ; History of hypertension Z86.79 ; History of anxiety Z86.59 ; Panic disorder with agoraphobia F40.01 and Epilepsy G40.909 [facility] [address] 99187- 3235 Nov, [facility] [id number] [place] [address] 03862- 5436 Nov, [place] [address]- 3217 Nov, History of seizures Z87.898 ; OAB (overactive bladder) N32.81 ; Lumbago M54.5 ; Other chronic pain G89.29 ; Cervicalgia M54.2 ; Tobacco abuse Z72.0 ; Tobacco abuse counseling Z71.6 and Impaired fasting glucose R73.01 [place] [id number] [place] [address] 82650- 1527 Nov, Bipolar 2 disorder F31.81 ; PTSD (post-traumatic stress disorder) F43.10 ; History of anxiety Z86.59 ; History of COPD Z87.09 ; Panic disorder with agoraphobia F40.01 and Moderate depressed bipolar I disorder F31.32 [address] [id number] [place] [address] 68894- 0314 12 Nov, 2015 PTSD (post-traumatic stress disorder) F43.10 [facility] [id number] [place] [address] [id number] 11 Nov, 2015 Dental examination Z01.20 and Dental caries K02.9 [address] [id number] [place] [address] 70303- 1588 08 Nov, 2015 History of hypertension Z86.79 ; History of hypothyroidism Z86.39 ; History of high cholesterol Z86.39 ; History of COPD Z87.09 and Overactive bladder N32.81 [place] [address] [place] [address] 48419- 6873 Nov, Bipolar 2 disorder F31.81 and PTSD (post-traumatic stress disorder) F43.10 [place] [id number] [place] [address] 97602- 3064 Nov, PTSD (post-traumatic stress disorder) F43.10 ; Panic disorder with agoraphobia F40.01 ; Epilepsy G40.909 and Moderate depressed bipolar I disorder F31.32 [place] [id number] [place] [address] 03358- 5219 Nov, [place] [id number] [place] [address] 44783- 1792 Nov, [place] [id number] [place] [address] 98182- 1478 Oct, [place] [address] 17226- 8589 Oct, Generalized anxiety disorder F41.1 ; Major depression, recurrent F33.9 and PTSD (post-traumatic stress disorder) F43.10 [place] [id number] [place] [address] 63844- 9762 Oct, Elevated fasting glucose R73.01 [place] [id number] [place] [address] 77286- 5281 Oct, Elevated fasting glucose R73.01 [place] [id number] [place] [address] 01445- 2598 Oct, History of COPD Z87.09 [place] [id number] [place] [address] 80377- 4610 Oct, General medical exam Z00.00 ; History of hypertension Z86.79 ; History of hypothyroidism Z86.39 ; History of hepatitis Z86.19 ; History of high cholesterol Z86.39 and History of seizures Z87.898 [place] [address] [place] [address] 18238- 8494 Oct, General medical exam Z00.00 ; History of hypertension Z86.79 ; History of hypothyroidism Z86.39 ; Bipolar 2 disorder F31.81 ; PTSD ( post-traumatic stress disorder) F43.10 ; History of hepatitis Z86.19 ; History of high cholesterol Z86.39 ; History of anxiety Z86.59 ; History of seizures Z87.898 ; History of [place] (myocardial infarction) I25.2 and History of COPD Z87.09 [facility] [id number] [address]- 9496 Oct, Generalized anxiety disorder F41.1 ; Depression F32.9 and PTSD (post-traumatic stress disorder) F43.10 [facility] [id number] [address]- 9184 Jan, [facility] [address] [address]- 1797 Jan, [facility] [address] [address]- 9348 Jun, [address] [id number] Jun, [facility] [address] 3278 May, [facility] [address] [address]- 9968 May, [address] [id number] May, [facility] [id number] [address]- 0336 May, [address] [id number] May, [facility] [id number] [address]- 4819 May, IMMUNIZATIONS No Known Immunizations SOCIAL HISTORY Never Assessed REASON FOR VISIT medication PLAN OF CARE VITAL SIGNS MEDICATIONS Medication Instructions Dosage Frequency Start Date End Date Duration Status Xanax 2 MG Orally 3 times a day 1 tablet 8h 30 days Active ChlorproMAZINE HCl 25 MG Orally at bedtime for mood and sleep Take 1 or 2 tabs Jan, Active RESULTS No Results PROCEDURES No [...]
--- OUTSIDE RECORDS SUMMARY | 2019-01-26 08:07 | XMS REPORT ---
Author Author GERARDO KISER [facility] Address [address] [place] [address] Care Team Providers Care Director Machine Name Role Phone MARGI GERARDO Unavailable PROBLEMS Type Condition ICD9-CM Code BAS89-OZ Code Onset Dates Condition Status SNOMED Code Problem OAB (overactive bladder) N32.81 Active 947948958 Problem Epilepsy G40.909 Active 96954409 Problem Cervicalgia M54.2 Active 94199632 Problem Other chronic pain G89.29 Active 45480295 Problem Tobacco abuse Z72.0 Active 98650585 Problem Lumbago M54.5 Active 563135352 Problem Hepatitis C B19.20 Active 98284540 Problem COPD (chronic obstructive pulmonary disease) J44.9 Active 87182587 Problem Diabetes E11.9 Active 08247467 Problem Bipolar I disorder with duy F31.10 Active 31234260 Problem Type 2 diabetes mellitus without complications E11.9 Active 908440714 Problem Stress incontinence of urine N39.3 Active 37043529 Problem Bilateral claudication of lower limb I73.9 Active 148473607 Problem Seasonal allergic rhinitis due to other allergic trigger J30.89 Active 446971956 Problem Hyperlipidemia, unspecified hyperlipidemia type E78.5 Active 87532073 Problem Hypertension, unspecified type I10 Active 31690487 Problem Chronic tension-type headache, not intractable G44.229 Active 257758326 Problem 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 mellitus without complication, without long -term current use of insulin E11.9 Active 924359801 Problem Type 2 diabetes mellitus with hyperglycemia E11.65 Active 540742006 Problem Chronic post-traumatic stress disorder (PTSD) F43.12 Active 802268688 Problem History of hypothyroidism Z86.39 Active 170463735 Problem Hypoglycemia E16.2 Active 625862912 Problem El's esophageal ulceration K22.10 Active 853820194 Problem Bipolar affective disorder, currently depressed, mild F31.31 Active 428780544 Problem Irritable bowel syndrome with diarrhea K58.0 Active 513715036 Problem Stress incontinence N39.3 Active 07571686 Problem History of hypertension Z86.79 Active 292382903 Problem Uncontrolled type 2 diabetes mellitus without complication, without long-term current use of insulin E11.65 Active 795568066 Problem Panic disorder with agoraphobia F40.01 Active 14398884 Problem Type 2 diabetes mellitus with hyperglycemia E11.65 Active 771018756 Problem History of seizures Z87.898 Active 466731374 Problem [facility] current use of insulin Z79.4 Active 520537251 Problem History of MD (myocardial infarction) I25.2 Active 699025134 Problem Mood disorder F39 Active 67956813 Problem Bipolar 2 disorder F31.81 Active 46090213 Problem Gastritis and duodenitis K29.90 Active 619105322 Problem History of high cholesterol Z86.39 Active 165087243 Problem Bipolar I disorder with mood-congruent psychotic features F31.9 Active 251325082 Problem Hypertension, benign I10 Active 57462983 Problem Primary insomnia F51.01 Active 9285199 ALLERGIES No Information ENCOUNTERS Encounter Location Date Diagnosis [facility] [address] [address]- [address] Jun, [facility] [address] [address]- [address] Jun, [facility] [address] [address]- 0649 Jun, [facility] [id number] [place] [address] 12549- 3326 May, Lumbago M54.5 [facility] [id number] [place] [address] [id number] May, [facility] [address] [address]- 7794 May, [facility] [address] [address]- 3097 May, [facility] [address] 16[address]- 4195 May, [facility] [address], [place] [address]- 2635 May, [facility] [id number] [place] [address] 18107- 3786 May, [facility] [id number] [place] [address] 02882- 2842 May, [facility] [id number] [place] [address] 85133- 7640 May, Lumbago M54.5 [facility] [id number] [place] [address] 14567- 2593 May, [facility] [id number] [place] [address] 53527- [address], [address] of the chest R93.8 [facility] [id number] [place] [address] 62130- 0210 Apr, Bipolar 2 disorder F31.81 ; Chronic post-traumatic stress disorder (PTSD) F43.12 and Panic disorder with agoraphobia F40.01 [facility] [address] [place] [address] 55236- [address] Apr, [address] of the chest R93.8 [facility] [address] [place] [address] 55742- [address] Apr, [address] of the chest R93.8 [facility] [address] [place] [address] 46146- 4246 Apr, [facility] [address] [place] [address] 45667- 2048 Apr, Type 2 diabetes mellitus with hyperglycemia E11.65 [facility] [address] [place] [address] 73865- 5194 Apr, 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 mellitus without complication, without long-term current use of insulin E11.9 ; Watery eyes H04.203 ; Low back pain M54.5 ; Other chronic pain G89.29 ; Chronic tension-type headache, not intractable G44.229 ; Uncontrolled type 2 diabetes mellitus without complication , without long-term current use of insulin E11.65 and Bronchitis J40 [facility] [id number] [place] [address] 82370- 2818 Apr, [facility] [id number] [place] [address] 92612- 2615 Apr, Lumbago M54.5 [facility] [address] 21585- 4282 March, [facility] [id number] [place] [address] 79993 -8867 March, Cough R05 ; Pneumonia due to infectious organism, unspecified laterality, unspecified part of lung J18.9 and Non-intractable vomiting with nausea, unspecified vomiting type R11.2 [facility] [address] 77293- 1371 March, Bronchitis J40 [facility] [id number] [place] [address] 80015- 0435 March, [facility] [address] 30[address]- 1902 March, El's esophageal ulceration K22.10 and Type 2 diabetes mellitus with hyperglycemia E11.65 [facility] [id number] [place] [address] 87386- 5296 March, Panic disorder with agoraphobia F40.01 ; Chronic post- traumatic stress disorder (PTSD) F43.12 and Bipolar 2 disorder F31.81 [facility] [id number] [place] [address] 09721- 1292 March, Type 2 diabetes mellitus with hyperglycemia E11.65 [facility] [id number] [place] [address] 52996- 2655 March, [facility] [id number] [place] [address] 75757- 5642 March, Lumbago M54.5 [facility] [id number] [place] [address] 52298- 2778 March, [facility] [id number] [place] [address] 33549- 3908 March, Irritable bowel syndrome with diarrhea K58.0 ; Primary insomnia F51.01 ; Type 2 diabetes mellitus with hyperglycemia E11.65 and [facility] current use of insulin Z79.4 [facility] [id number] [place] [address] 52664- 9351 March, [facility] [id number] [place] [address] 95873- 2707 Jan, [facility] [id number] [place] [address] 24671- 1237 Jan, [facility] [id number] [place] [address] 79550- 5856 Jan, [facility] [id number] [place] [address] 34891- 8389 Jan, [facility] [id number] [place] [address] 62642- 1172 Jan, Dizziness R42 [facility] [id number] [place] [address] 64036- 7528 Jan, Bipolar affective disorder, currently depressed, mild F31.31 ; Panic disorder with agoraphobia F40.01 and Chronic post-traumatic stress disorder (PTSD) F43.12 [facility] [id number] [place] [address] 06094- 0660 Jan, Dizziness R42 [facility] [id number] [place] [address] 36612- 8051 Jan, Chest pain, unspecified type R07.9 ; Exertional dyspnea R06.09 ; Hypertension, unspecified type I10 and Hyperlipidemia, unspecified hyperlipidemia type E78.5 [facility] [id number] [place] [address] 65196- 6429 Jan, [facility] [address] [place] [address] 16770- 8813 09 Jan, 2018 Lumbago M54.5 [facility] [id number] [place] [address] 67165- 0456 04 Jan, 2018 El's esophageal ulceration K22.10 ; Blister (nonthermal ) of oral cavity, initial encounter S00.522A ; Local infection of the skin and subcutaneous tissue, unspecified L08.9 ; Type 2 diabetes mellitus with hyperglycemia E11.65 ; [facility] current use of insulin Z79.4 and Stress incontinence N39.3 [facility] [id number] [place] [address] 92270- 1554 Dec, [facility] [id number] [place] [address] 47471- 1627 27 Dec, 2017 [facility] [id number] [place] [address] 03664- 3860 19 Dec, 2017 [facility] [id number] [place] [address] [phone] 16 Dec, 2017 Dental examination Z01.20 [facility] [id number] [place] [address] 83973- 5884 15 Dec, 2017 Acute pain of right knee M25.561 [facility] [address] [place] [address] 95532- 3723 14 Dec, 2017 [facility] [id number] [place] [address] 68710- 4736 14 Dec, 2017 [facility] [address] [place] [address] 63229- 0293 14 Dec, 2017 Lumbago M54.5 ; Acute pain of right knee M25.561 and Seasonal allergic rhinitis due to other allergic trigger J30.89 [facility] [address], [place] [address]- 8116 12 Dec, 2017 Type 2 diabetes mellitus with hyperglycemia E11.65 [facility] [address] [address]- 0067 Dec, [facility] [id number] [place] [address] 07975- 2689 Dec, [facility] [address], [place] [address]- 3284 Dec, [facility] [id number] [place] [address] 80892- 3688 Dec, [facility] [id number] [place] [address] 12230- 0399 Dec, Chronic post-traumatic stress disorder (PTSD) F43.12 and Panic disorder with agoraphobia F40.01 [facility] [id number] [place] [address] 54795- 9956 13 Dec, 2017 Low back pain M54.5 [facility] [address] [place] [address] 52517- 2348 Dec, Type 2 diabetes mellitus with hyperglycemia E11.65 ; [facility] current use of insulin Z79.4 ; Low back pain M54.5 ; Other chronic pain G89.29 and Encounter for therapeutic drug level monitoring Z51.81 [facility] [address], [place] [address]- 8561 09 Dec, 2017 Coughing R05 [facility] [address], [place] [address]- 3326 Dec, [facility] [address] [address] 07 Dec, 2017 Dental examination Z01.20 [facility] [address] [place] [address] 02992- 1664 Nov, Type 2 diabetes mellitus without complications E11.9 and Encounter for therapeutic drug level monitoring Z51.81 [facility] [address], [place] [address]- 8542 Nov, [facility] [address] [address]- 5662 Oct, Type 2 diabetes mellitus without complications E11.9 [facility] [id number] [place] [address] 58409- 0866 Oct, Type 2 diabetes mellitus with hyperglycemia E11.65 [facility] [id number] [place] [address] 19850- 1571 Aug, Type 2 diabetes mellitus without complications E11.9 [facility] [id number] [place] [address] 94913- 5033 Aug, Type 2 diabetes mellitus without complications E11.9 ; Hypoglycemia E16.2 ; Lumbago M54.5 ; Stress incontinence of urine N39.3 and History of MD (myocardial infarction) I25.2 [facility] [id number] [place] [address] 82803- 2819 Jun, [facility] [id number] [place] [address] 24725- 5256 May, [facility] [id number] [place] [address] 62930- 1271 Apr, Panic disorder with agoraphobia F40.01 [facility] [address] [place] [address] 33585- 7009 Apr, Panic disorder with agoraphobia F40.01 [facility] [id number] [place] [address] 92326- 2516 Apr, [facility] [id number] [place] [address] 67660- 7625 March, Other chronic pain G89.29 [facility] [id number] [place] [address] 54689- 6130 March, [facility] [id number] [place] [address] 25919- 4481 March, [facility] [id number] [place] [address] 48863- 7172 March, [facility] [address], [place] [address]- 3308 March, [facility] [address] [address]- 3223 March, Type 2 diabetes mellitus without complications E11.9 [facility] [address], [place] [address]- 1815 March, Diarrhea, unspecified type R19.7 [facility] [id number] [place] [address] 08339- 0671 March, Bipolar 2 disorder F31.81 ; Chronic post-traumatic stress disorder (PTSD) F43.12 and Type 2 diabetes mellitus with hyperglycemia E11.65 [facility] [address], [place] [address]- 3902 March, [facility] [id number] [place] [address] 31201- 1781 March, [facility] [address], [place] [address]- 8307 March, Hypertension, benign I10 ; Type 2 diabetes mellitus with hyperglycemia E11.65 ; Hepatitis C B19.20 ; Gastritis and duodenitis K29.90 and Dysuria R30.0 [facility] [address], [place] [address]- 1755 March, Hypertension, benign I10 ; Type 2 diabetes mellitus with hyperglycemia E11.65 ; Hepatitis C B19.20 ; Gastritis and duodenitis K29.90 and Dysuria R30.0 [facility] [address], [place] [address]- 7008 March, Panic disorder with agoraphobia F40.01 ; Chronic post- traumatic stress disorder (PTSD) F43.12 ; Epilepsy G40.909 and Bipolar I disorder with mood-congruent psychotic features F31.9 [facility] [address], [place] [address]- 5956 March, [facility] [address], [place] [address]- 4096 March, Type 2 diabetes mellitus with hyperglycemia E11.65 [facility] [address], [place] [address]- 9396 18 Jan, 2017 Bipolar I disorder with duy F31.10 [facility] [address], [place] [address]- 8535 17 Jan, 2017 Bipolar 2 disorder F31.81 ; Chronic post-traumatic stress disorder (PTSD) F43.12 and Type 2 diabetes mellitus with hyperglycemia E11.65 [facility] [address], [place] [address]- 9222 17 Jan, 2017 [facility] [id number] [place] [address] 23768- 5534 Jan, [facility] [id number] [place] [address] 61951- 0413 14 Jan, 2017 Panic disorder with agoraphobia F40.01 [place] [facility] [address], [place] [address]- 4071 13 Jan, 2017 Panic disorder with agoraphobia F40.01 ; Bipolar I disorder with mood-congruent psychotic features F31.9 ; Chronic post-traumatic stress disorder (PTSD) F43.12 and Epilepsy G40.909 [facility] [address], [place] [address]- 9097 Jan, [facility] [address], [place] [address]- 9409 Jan, [facility] [address], [place] [address]- 0429 10 Jan, 2017 Type 2 diabetes mellitus without complications E11.9 and Hypoglycemia E16.2 [facility] [address], [place] [address]- 8175 07 Jan, 2017 Type 2 diabetes mellitus without complications E11.9 ; Primary insomnia F51.01 and Hypertension, benign I10 [facility] [address], [place] [address]- 3248 Jan, [facility] [id number] [place] [address] [id number] Jan, [facility] [address], [place] [address]- 1743 Dec, Type 2 diabetes mellitus with hyperglycemia E11.65 [facility] [address] [place] [address] 28476- 0921 Dec, [facility] [address] [place] [address] 08745- 0024 Dec, Bipolar 2 disorder F31.81 ; Panic disorder with agoraphobia F40.01 ; Chronic post-traumatic stress disorder (PTSD) F43.12 and Epilepsy G40.909 [facility] [address], [place] [address]- 6197 Dec, [facility] [address] [place] [address] 81544- 0103 Dec, [facility] [address], [place] [address]- 1030 Dec, Bipolar 2 disorder F31.81 ; Panic disorder with agoraphobia F40.01 ; Chronic post-traumatic stress disorder (PTSD) F43.12 and Epilepsy G40.909 [facility] [address], [place] [address]- 8864 Dec, [facility] [address], [place] [address]- 4805 Dec, [facility] [address], [place] [address]- 9573 Dec, [facility] [address], [place] [address]- 0516 Dec, Type 2 diabetes mellitus with hyperglycemia E11.65 ; 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 project 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.4 and Lumbago M54.5 [facility] [address] [address]- 5590 Dec, [facility] [id number] [place] [address] 06932- 7998 Dec, [facility] [id number] [place] [address] 29318- 1555 Dec, [facility] [id number] [place] [address] 97934 -5339 Dec, Pain of left leg M79.605 and Pain in right leg M79.604 [facility] [address] [place] [address] 32606- 8498 14 Dec, 2016 [facility] [address] [place] [address] 10341- 8103 08 Dec, 2016 Type 2 diabetes mellitus with hyperglycemia E11.65 [facility] [address] [place] [address] 10699- 1996 Dec, [facility] [address] [place] [address] 91318- 7175 Dec, Type 2 diabetes mellitus with hyperglycemia E11.65 ; 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 project 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.4 ; Vagina, candidiasis B37.3 and Other chronic pain G89.29 [facility] [address] [place] [address] 11484- 9755 Nov, Panic disorder with agoraphobia F40.01 [facility] [address] [place] [address] 68763- 2601 Nov, [facility] [id number] [place] [address] 05603- 3355 Nov, [facility] [address] [place] [address] 79934- 8419 Nov, Hypoglycemia E16.2 [facility] [address] [place] [address] 14003- 5683 Nov, [facility] [address], [place] [address]- 4843 Nov, [facility] [address] [place] [address] 75680- 8253 Nov, [facility] [address] [place] [address] 27229- 7006 Nov, Type 2 diabetes mellitus with hyperglycemia E11.65 and [facility] current use of insulin Z79.4 [facility] [address] [place] [address] 06813- 5482 Nov, Panic disorder with agoraphobia F40.01 ; Bipolar 2 disorder F31.81 ; Chronic post-traumatic stress disorder (PTSD) F43.12 and Epilepsy G40.909 [facility] [address] [place] [address] 79408- 8933 Nov, Panic disorder with agoraphobia F40.01 [facility] [address] [place] [address] 27633- 5756 Oct, [facility] [address] [place] [address] 35685- 5341 Oct, [facility] [address] [place] [address] 26130- 2717 Oct, Bipolar 2 disorder F31.81 ; Panic disorder with agoraphobia F40.01 and Mood disorder F39 [facility] [address] [place] [address] 83214- 9443 Oct, Diabetes E11.9 ; Type 2 diabetes mellitus with hyperglycemia E11.65 and 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 project 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.4 [facility] [id number] [place] [address] 54397- 1224 Oct, [facility] [id number] [place] [address] 94426- 9656 Sep, [facility] [address] [place] [address] 29869- 8253 Sep, Bipolar 2 disorder F31.81 and Mood disorder F39 [facility] [id number] [place] [address] 73375- 4525 Sep, [facility] [id number] [place] [address] 80999- 9771 Sep, Uncontrolled type 2 diabetes mellitus without complication, without long-term current use of insulin E11.65 [facility] [id number] [place] [address] 85581- 3547 Sep, [facility] [id number] [place] [address] 58047- 9818 Sep, [facility] [id number] [place] [address] 40916- 6740 Sep, [facility] [id number] [place] [address] 45288- 3927 Sep, [facility] [id number] [place] [address] 71135- 6433 Sep, Bipolar 2 disorder F31.81 ; Chronic post-traumatic stress disorder (PTSD) F43.12 ; Panic disorder with agoraphobia F40.01 and Epilepsy G40.909 [facility] [address] [place] [address] 24899- 3712 Sep, Bipolar 2 disorder F31.81 ; PTSD (post-traumatic stress disorder) F43.10 and Panic disorder with agoraphobia F40.01 [facility] [id number] [place] [address] 23100- 6948 Sep, [facility] [id number] [place] [address] 80658- 4895 28 Aug, 2016 History of seizures Z87.898 ; Panic disorder with agoraphobia F40.01 and Bipolar 2 disorder F31.81 [facility] [id number] [place] [address] [phone]- 4532 Aug, [facility] [id number] [place] [id number] [id number] 17 Aug, 2016 [facility] [id number] [place] [address] 17960- 2231 Aug, [facility] [id number] [place] [address] [phone]- 3001 Aug, [facility] [id number] [place] [address] 37137- 5519 Aug, [facility] [address] 45913- 4166 Aug, [facility] [id number] [place] [address] 15926- 5635 Aug, Hypoglycemia E16.2 and Bilateral impacted cerumen H61.23 [facility] [id number] [place] [address] 65876- 2452 Aug, [facility] [address] 35268- 5214 Jul, [facility] [id number] [place] [address] 80462- 7636 Jul, [facility] [id number] [place] [address] 44791- 2043 15 Jul, 2016 Bipolar 2 disorder F31.81 ; Panic disorder with agoraphobia F40.01 ; PTSD (post-traumatic stress disorder) F43.10 and Epilepsy G40.909 [facility] [id number] [place] [address] 52383- 7092 Jul, [facility] [id number] [place] [address] 21825- 8531 09 Jul, 2016 Type 2 diabetes mellitus without complications E11.9 and Coughing R05 [facility] [id number] [place] [address] 50506- 8114 06 Jul, 2016 [facility] [id number] [place] [address] [phone]- [phone] Jun, [facility] [address] [id number], [place] [address] Jun, Bipolar 2 disorder F31.81 ; PTSD (post-traumatic stress disorder) F43.10 and Panic disorder with agoraphobia F40.01 [facility] [id number] [place] [address] 11118- 4731 Jun, [facility] [id number] [place] [address] 86182- 8599 Jun, [facility] [id number] [place] [address] 94203- 8985 Jun, [facility] [id number] [place] [address] 74163- 4736 Jun, Type 2 diabetes mellitus without complications E11.9 and COPD (chronic obstructive pulmonary disease) J44.9 [facility] [id number] [place] [address] [id number] May, Dental examination Z01.20 and Dental caries K02.9 [facility] [id number] [place] [address] 39997- 5158 May, Bipolar 2 disorder F31.81 ; PTSD (post-traumatic stress disorder) F43.10 and Panic disorder with agoraphobia F40.01 [facility] [id number] [place] [address] 93122- 0685 May, Lumbago with sciatica, right side M54.41 ; Other chronic pain G89.29 and Uncontrolled type 2 diabetes mellitus without complication, without long-term current use of insulin E11.65 [facility] [id number] [place] [address] 94845- 1196 May, Chronic bronchitis, unspecified chronic bronchitis type J42 [facility] [id number] [place] [address] 71910- 4782 May, [facility] [id number] [place] [address] 33274- 1347 May, [facility] [id number] [place] [address] 25199- 0277 13 May, 2016 Chest pain, unspecified type [...] limb I73.9 and Bipolar 2 disorder F31.81 [facility] [address] 54472- 3684 May, Bipolar 2 disorder F31.81 ; Panic disorder with agoraphobia F40.01 and Tobacco abuse Z72.0 [facility] [address] 13447- 7476 Apr, [facility] [address] 35323- 9143 Apr, [facility] [address] 50875- 8407 Apr, [facility] [address] 01821- 5005 Apr, Bipolar 2 disorder F31.81 ; Panic disorder with agoraphobia F40.01 and PTSD (post-traumatic stress disorder) F43.10 [facility] [id number] [place] [address] 47530- 0683 Apr, Chronic bronchitis, unspecified chronic bronchitis type J42 ; Cervical neuritis M54.12 and Thoracic neuritis M54.[address] 24[address]- 3025 Apr, [facility] [address] 06652- 7662 Apr, Cervicalgia M54.2 [facility] [address] 81978- 6240 14 Apr, 2016 Bipolar 2 disorder F31.81 ; Panic disorder with agoraphobia F40.01 and PTSD (post-traumatic stress disorder) F43.10 [facility] [id number] [place] [address] 54999 -7496 Apr, [facility] [id number] [place] [address] 93874 -7938 Apr, Cough R05 and Tobacco dependence F17.200 [facility] [id number] [place] [address] 83134- 5192 Apr, [facility] [address] 26730- 4193 Apr, [facility] [id number] [place] [address] 86755- 5237 March, Bipolar 2 disorder F31.81 ; Panic disorder with agoraphobia F40.01 and Generalized anxiety disorder F41.1 [facility] [id number] [place] [address] 70761- 9816 March, Closed displaced fracture of fifth metatarsal bone of right foot with routine healing, subsequent encounter S92.351D [facility] [id number] [place] [address] 90802- 3481 March, Bronchitis J40 [facility] [id number] [place] [address] 35108- 4909 March, [facility] [id number] [place] [address] 53085- 0513 March, [facility] [id number] [place] [address] 72565- 1713 March, Foot pain, right M79.671 ; Cervicalgia M54.2 and 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 mellitus without complication, 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.9 [facility] [id number] [place] [address] 94937- 9372 March, Fracture of fifth metatarsal bone of right foot S92.351A [facility] [address] [place] [address] 56014- 9587 March, [facility] [id number] [place] [address] 06997- 8977 Jan, Fracture of fifth metatarsal bone of right foot S92.351A [facility] [id number] [place] [address] 37335- 5716 Jan, Bipolar 2 disorder F31.81 ; PTSD (post-traumatic stress disorder) F43.10 ; Panic disorder with agoraphobia F40.01 and Epilepsy G40.909 [facility] [id number] [place] [address] 79304- 0664 Jan, History of MD (myocardial infarction) I25.2 and History of high cholesterol Z86.39 [facility] [id number] [place] [address] 18334- 7745 Jan, Bipolar 2 disorder F31.81 ; Panic disorder with agoraphobia F40.01 ; Tobacco abuse Z72.0 and PTSD (post-traumatic stress disorder) F43.10 [facility] [id number] [place] [address] 23123- 4304 Jan, Fracture of fifth metatarsal bone of right foot S92.351A [facility] [address] [place] [address] 68642- 5023 Jan, [facility] [id number] [place] [address] 78868- 3908 Jan, History of high cholesterol Z86.39 [facility] [id number] [place] [address] 89202- 1556 Jan, History of MD (myocardial infarction) I25.2 [facility] [id number] [place] [address] 31471- 0370 Jan, [facility] [id number] [place] [address] 08022- 4142 Dec, Back pain M54.9 ; Diabetes E11.9 ; Right knee pain M25.561 and Chest pain R07.9 [facility] [id number] [place] [address] 85010- 0595 Dec, [facility] [id number] [place] [address] 49801- 1244 Dec, [facility] [address] 57678- 0170 Dec, Cervicalgia M54.2 [facility] [address] 84103- 4031 Dec, Bipolar 2 disorder F31.81 ; PTSD (post-traumatic stress disorder) F43.10 ; Panic disorder with agoraphobia F40.01 and Epilepsy G40.909 [facility] [address] 30981- 5382 Dec, Bipolar 2 disorder F31.81 ; PTSD (post-traumatic stress disorder) F43.10 and Panic disorder with agoraphobia F40.01 [facility] [id number] [place] [address] 84218- 3217 Dec, Diabetes E11.9 [facility] [id number] [place] [address] 55943- 9755 Dec, [facility] [id number] [place] [address] 21391- 0350 Dec, Other chronic pain G89.29 ; Hepatitis C B19.20 and History of seizures Z87.898 [facility] [id number] [place] [address] 53986- 5412 Dec, [facility] [address] 97123- 2193 Dec, Bipolar 2 disorder F31.81 and Other chronic pain G89.29 [facility] [address] 39943- 8827 Dec, Cervicalgia M54.2 and Diabetes E11.9 [facility] [id number] [place] [address] 61412- 9643 Dec, [facility] [id number] [place] [address] 77916- 8498 Dec, [facility] [id number] [place] [address] 63887- 5936 Dec, [facility] [address] 94918- 5060 Dec, [facility] [id number] [place] [address] 08066- 2934 Dec, Type 2 diabetes mellitus without complications E11.9 [facility] [address] 94796- 4693 Dec, [facility] [address] 23941- 1587 Dec, History of seizures Z87.898 and Hepatitis C B19.20 [facility] [id number] [place] [address] 90679- 3211 08 Dec, 2015 Hepatitis C B19.20 [facility] [id number] [place] [address] 87706- 7210 Dec, [facility] [id number] [place] [address] 52607- 9208 Dec, Cervicalgia M54.2 ; COPD (chronic obstructive pulmonary disease) J44.9 and Hepatitis C B19.20 [facility] [id number] [place] [address] 22558- 6317 Dec, Bipolar 2 disorder F31.81 ; History of hypertension Z86.79 ; History of anxiety Z86.59 ; Panic disorder with agoraphobia F40.01 and Epilepsy G40.909 [facility] [id number] [place] [address] 86066- 4829 Nov, [facility] [address] [place] [address] 21645- 7496 Nov, [address] 00912- 6677 Nov, History of seizures Z87.898 ; OAB (overactive bladder) N32.81 ; Lumbago M54.5 ; Other chronic pain G89.29 ; Cervicalgia M54.2 ; Tobacco abuse Z72.0 ; Tobacco abuse counseling Z71.6 and Impaired fasting glucose R73.01 [facility] [id number] [place] [address] 02276- 7939 Nov, Bipolar 2 disorder F31.81 ; PTSD (post-traumatic stress disorder) F43.10 ; History of anxiety Z86.59 ; History of COPD Z87.09 ; Panic disorder with agoraphobia F40.01 and Moderate depressed bipolar I disorder F31.32 [facility] [place] [id number] [place] [address] 22701- 2465 12 Nov, 2015 PTSD (post-traumatic stress disorder) F43.10 [facility] [id number] [place] [address] [id number] 11 Nov, 2015 Dental examination Z01.20 and Dental caries K02.9 [facility] [place] [id number] [place] [address] 45158- 3727 08 Nov, 2015 History of hypertension Z86.79 ; History of hypothyroidism Z86.39 ; History of high cholesterol Z86.39 ; History of COPD Z87.09 and Overactive bladder N32.81 [facility] [address] [place] [address] 12647- 6513 Nov, Bipolar 2 disorder F31.81 and PTSD (post-traumatic stress disorder) F43.10 [facility] [id number] [place] [address] 03335- 7517 Nov, PTSD (post-traumatic stress disorder) F43.10 ; Panic disorder with agoraphobia F40.01 ; Epilepsy G40.909 and Moderate depressed bipolar I disorder F31.32 [facility] [address] [place] [address] 58020- 4713 Nov, [facility] [id number] [place] [address] 24507- 8992 Nov, [facility] [id number] [place] [address] 01330- 1404 Oct, [facility] [address] 28288- 0045 Oct, Generalized anxiety disorder F41.1 ; Major depression, recurrent F33.9 and PTSD (post-traumatic stress disorder) F43.10 [facility] [place] [id number] [place] [address] 53281- 9691 Oct, Elevated fasting glucose R73.01 [facility] [place] [id number] [place] [address] 59760- 6044 Oct, Elevated fasting glucose R73.01 [facility] [id number] [place] [address] 02286- 1992 Oct, History of COPD Z87.09 [facility] [id number] [place] [address] 76388- 8694 Oct, General medical exam Z00.00 ; History of hypertension Z86.79 ; History of hypothyroidism Z86.39 ; History of hepatitis Z86.19 ; History of high cholesterol Z86.39 and History of seizures Z87.898 [address] [place] [address] 93330- 8726 Oct, General medical exam Z00.00 ; History of hypertension Z86.79 ; History of hypothyroidism Z86.39 ; Bipolar 2 disorder F31.81 ; PTSD ( post-traumatic stress disorder) F43.10 ; History of hepatitis Z86.19 ; History of high cholesterol Z86.39 ; History of anxiety Z86.59 ; History of seizures Z87.898 ; History of MD (myocardial infarction) I25.2 and History of COPD Z87.09 [facility] [id number], [place] [address]- 2116 Oct, Generalized anxiety disorder F41.1 ; Depression F32.9 and PTSD (post-traumatic stress disorder) F43.10 [facility] [id number], [place] [address]- 8588 Jan, [facility] [id number] 2105 Jan, [facility] [id number], [place] [address]- 0760 Jun, [facility] [address] [place] [id number] Jun, [facility] [id number], [place] [address]- 2608 May, [facility] [address], [place] [address]- 4306 May, [facility] [address] [id number] May, [facility] [id number], [place] [address]- 7183 May, [facility] [address] [id number] May, [facility] [address] [facility] [id number] [address]- 0347 May, IMMUNIZATIONS No Known Immunizations SOCIAL HISTORY Never Assessed REASON FOR VISIT Controlled Med Refill 03/03/18 PLAN OF CARE VITAL SIGNS MEDICATIONS Unknown [...]
--- OUTSIDE RECORDS SUMMARY | 2019-01-26 08:08 | XMS REPORT ---
Author Author FRANK LUNA Organization [facility] Address [address] [place] [address] Care Team Providers [facility] Specialists Name Role Phone FRANK LUNA Unavailable PROBLEMS Type Condition ICD9-CM Code XAP22-TX Code Onset Dates Condition Status SNOMED Code Problem OAB (overactive bladder) N32.81 Active 626568659 Problem Epilepsy G40.909 Active 07797293 Problem Cervicalgia M54.2 Active 44164115 Problem Other chronic pain G89.29 Active 82375608 Problem Tobacco abuse Z72.0 Active 38081605 Problem Lumbago M54.5 Active 725848362 Problem Hepatitis C B19.20 Active 71808016 Problem COPD (chronic obstructive pulmonary disease) J44.9 Active 52953944 Problem Diabetes E11.9 Active 47377784 Problem Bipolar I disorder with duy F31.10 Active 35436431 Problem Type 2 diabetes mellitus without complications E11.9 Active 193134786 Problem Stress incontinence of urine N39.3 Active 27441067 Problem Bilateral claudication of lower limb I73.9 Active 386271346 Problem Seasonal allergic rhinitis due to other allergic trigger J30.89 Active 456362835 Problem Hyperlipidemia, unspecified hyperlipidemia type E78.5 Active 74443238 Problem Hypertension, unspecified type I10 Active 00379328 Problem Chronic tension-type headache, not intractable G44.229 Active 820138269 Problem 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 mellitus without complication, without long -term current use of insulin E11.9 Active 177951590 Problem Type 2 diabetes mellitus with hyperglycemia E11.65 Active 751411808 Problem Chronic post-traumatic stress disorder (PTSD) F43.12 Active 673809987 Problem History of hypothyroidism Z86.39 Active 981576543 Problem Hypoglycemia E16.2 Active 211263057 Problem El's esophageal ulceration K22.10 Active 151210943 Problem Bipolar affective disorder, currently depressed, mild F31.31 Active 749756270 Problem Irritable bowel syndrome with diarrhea K58.0 Active 267480562 Problem Stress incontinence N39.3 Active 88224180 Problem History of hypertension Z86.79 Active 001052993 Problem Uncontrolled type 2 diabetes mellitus without complication, without long-term current use of insulin E11.65 Active 506025697 Problem Panic disorder with agoraphobia F40.01 Active 17533623 Problem Type 2 diabetes mellitus with hyperglycemia E11.65 Active 471209386 Problem History of seizures Z87.898 Active 411335330 Problem [facility] current use of insulin Z79.4 Active 335832711 Problem History of OH (myocardial infarction) I25.2 Active 916774004 Problem Mood disorder F39 Active 78163703 Problem Bipolar 2 disorder F31.81 Active 53187444 Problem Gastritis and duodenitis K29.90 Active 799638973 Problem History of high cholesterol Z86.39 Active 224494676 Problem Bipolar I disorder with mood-congruent psychotic features F31.9 Active 375753820 Problem Hypertension, benign I10 Active 06695476 Problem Primary insomnia F51.01 Active 2856499 ALLERGIES Substance Reaction Event Type Date Status Penicillin V Potassium Unknown Drug Allergy Jan, Active Metformin HCl diarrhea Drug Allergy Jan, Active Macrobid stomach upset Drug Allergy Jan, Active Iodine anaphylaxis Drug Allergy Jan, Active Fentanyl halucinations/insomnia Drug Allergy Jan, Active ENCOUNTERS Encounter Location Date Diagnosis [facility] [address] [address]- [address] Jun, [facility] [id number] [place] [address] 67247- 9870 Jun, [facility] [address] 77021- 3496 Jun, [facility] [id number] [place] [address] 64713- 9474 May, Lumbago M54.5 [facility] [id number] [place] [address] [id number] May, [facility] [address] 41796- 8506 May, [facility] [address] [address] 4150 May, [facility] [address] [address] 8570 May, [facility] [address], [place] [address] 5484 May, [facility] [id number] [place] [address] 37297- 8547 May, [facility] [id number] [place] [address] 53492- 6430 May, [facility] [id number] [place] [address] 59620- 9324 May, Lumbago M54.5 [facility] [id number] [place] [address] 14294- 2381 May, [facility] [id number] [place] [address] 69272- [address] Apr, [address] of the chest R93.8 [facility] [id number] [place] [address] 07426- 6395 Apr, Bipolar 2 disorder F31.81 ; Chronic post-traumatic stress disorder (PTSD) F43.12 and Panic disorder with agoraphobia F40.01 [facility] [address] [address] [address], [address] of the chest R93.8 [facility] [address] [address] [address] Apr, [address] of the chest R93.8 [facility] [id number] [place] [address] 71525- 2998 Apr, [facility] [address], [place] [address] 5179 Apr, Type 2 diabetes mellitus with hyperglycemia E11.65 [facility] [id number] [place] [address] 25952- 2141 11 Apr, 2018 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 mellitus without complication, without long-term current use of insulin E11.9 ; Watery eyes H04.203 ; Low back pain M54.5 ; Other chronic pain G89.29 ; Chronic tension-type headache, not intractable G44.229 ; Uncontrolled type 2 diabetes mellitus without complication , without long-term current use of insulin E11.65 and Bronchitis J40 [place] [address] 55664- 1621 Apr, [place] [address] 31315- 9847 Apr, Lumbago M54.5 [place] [address] 81654- 9763 March, [facility] [address] 269[address]67 March, Cough R05 ; Pneumonia due to infectious organism, unspecified laterality, unspecified part of lung J18.9 and Non-intractable vomiting with nausea, unspecified vomiting type R11.2 [place] [address] 30838- 7862 March, Bronchitis J40 [place] [address] 83863- 3014 March, [place] [address] 65178- 3467 March, El's esophageal ulceration K22.10 and Type 2 diabetes mellitus with hyperglycemia E11.65 [place] [address] 19714- 1913 March, Panic disorder with agoraphobia F40.01 ; Chronic post- traumatic stress disorder (PTSD) F43.12 and Bipolar 2 disorder F31.81 [place] [address] 25020- 5675 March, Type 2 diabetes mellitus with hyperglycemia E11.65 [place] [address] [address] 1049 March, [facility] [id number] [place] [address] 68904- 3509 March, Lumbago M54.5 [facility] [id number] [place] [address] 05151- 2257 March, [facility] [id number] [place] [address] 26370- 7159 March, Irritable bowel syndrome with diarrhea K58.0 ; Primary insomnia F51.01 ; Type 2 diabetes mellitus with hyperglycemia E11.65 and long term care social worker current use of insulin Z79.4 [facility] [id number] [place] [address] 55385- 7049 March, [facility] [id number] [place] [address] 84035- 1350 Jan, [facility] [id number] [place] [address] 67889- 7310 Jan, [facility] [id number] [place] [address] 01600- 6754 Jan, [facility] [id number] [place] [address] 03421- 4796 Jan, [facility] [id number] [place] [address] 80937- 9407 Jan, Dizziness R42 [facility] [id number] [place] [address] 58386- 0172 Jan, Bipolar affective disorder, currently depressed, mild F31.31 ; Panic disorder with agoraphobia F40.01 and Chronic post-traumatic stress disorder (PTSD) F43.12 [facility] [address], [place] [address]- 6620 Jan, Dizziness R42 [facility] [id number] [place] [address] 15053- 6209 Jan, Chest pain, unspecified type R07.9 ; Exertional dyspnea R06.09 ; Hypertension, unspecified type I10 and Hyperlipidemia, unspecified hyperlipidemia type E78.5 [place] [id number] [place] [address] 47931- 8914 Jan, [place] [id number] [place] [address] 77004- 6005 Jan, Lumbago M54.5 [place] [address] 60778- 6884 Jan, El's esophageal ulceration K22.10 ; Blister (nonthermal ) of oral cavity, initial encounter S00.522A ; Local infection of the skin and subcutaneous tissue, unspecified L08.9 ; Type 2 diabetes mellitus with hyperglycemia E11.65 ; [facility] current use of insulin Z79.4 and Stress incontinence N39.3 [place] [address] 18048- 6177 Dec, [place] [id number] [place] [address] 74738- 9701 27 Dec, 2017 [place] [id number] [place] [address] 54713- 8694 19 Dec, 2017 [facility] [id number] [place] [address] [phone] 16 Dec, 2017 Dental examination Z01.20 [place] [id number] [place] [address] 53947- 3373 15 Dec, 2017 Acute pain of right knee M25.561 [place] [id number] [place] [address] 86784- 5415 14 Dec, 2017 [place] [id number] [place] [address] 17622- 7314 14 Dec, 2017 [place] [id number] [place] [address] 63383- 8665 14 Dec, 2017 Lumbago M54.5 ; Acute pain of right knee M25.561 and Seasonal allergic rhinitis due to other allergic trigger J30.89 [facility] [id number] [place] [address] 86026- 8322 Dec, Type 2 diabetes mellitus with hyperglycemia E11.65 [facility] [id number] [place] [address] 46000- 9257 Dec, [facility] [id number] [place] [address] 99705- 4559 Dec, [facility] [id number] [place] [address] 30642- 9009 Dec, [place] [address] 83781- 1197 Dec, [place] [id number] [place] [address] 51304- 7784 Dec, Chronic post-traumatic stress disorder (PTSD) F43.12 and Panic disorder with agoraphobia F40.01 [place] [id number] [place] [address] 47231- 4538 13 Dec, 2017 Low back pain M54.5 [place] [id number] [place] [address] 31084- 8145 Dec, Type 2 diabetes mellitus with hyperglycemia E11.65 ; [facility] current use of insulin Z79.4 ; Low back pain M54.5 ; Other chronic pain G89.29 and Encounter for therapeutic drug level monitoring Z51.81 [place] [id number] [place] [address] 40214- 4586 09 Dec, 2017 Coughing R05 [facility] [id number] [place] [address] 63404- 8580 09 Dec, 2017 [facility] [id number] [place] [address] [phone] 07 Dec, 2017 Dental examination Z01.20 [place] [id number] [place] [address] 02392- 3471 Nov, Type 2 diabetes mellitus without complications E11.9 and Encounter for therapeutic drug level monitoring Z51.81 [place] [id number] [place] [address] 22727- 5700 Nov, [facility] [id number] [place] [address] 43548- 1722 Oct, Type 2 diabetes mellitus without complications E11.9 [place] [id number] [place] [address] 55504- 4123 Oct, Type 2 diabetes mellitus with hyperglycemia E11.65 [place] [id number] [place] [address] 86513- 9281 Aug, Type 2 diabetes mellitus without complications E11.9 [place] [id number] [place] [address] 03120- 0671 Aug, Type 2 diabetes mellitus without complications E11.9 ; Hypoglycemia E16.2 ; Lumbago M54.5 ; Stress incontinence of urine N39.3 and History of OH (myocardial infarction) I25.2 [place] [id number] [place] [address] 77361- 1331 Jun, [place] [id number] [place] [address] 01897- 5632 May, [place] [id number] [place] [address] 88009- 2669 Apr, Panic disorder with agoraphobia F40.01 [place] [id number] [place] [address] 41449- 8015 Apr, Panic disorder with agoraphobia F40.01 [place] [id number] [place] [address] 69246- 0943 Apr, [place] [id number] [place] [address] 14947- 8312 March, Other chronic pain G89.29 [place] [id number] [place] [address] 98344- 9855 March, [facility] [address] [address]- 7844 March, [facility] [address], [place] [address]- 8463 March, [facility] [address], [place] [address]- 3780 March, [facility] [id number] [place] [address] 18214- 5771 March, Type 2 diabetes mellitus without complications E11.9 [place] [address], [place] [address]- 5813 March, Diarrhea, unspecified type R19.7 [place] [address], [place] [address]- 9602 March, Bipolar 2 disorder F31.81 ; Chronic post-traumatic stress disorder (PTSD) F43.12 and Type 2 diabetes mellitus with hyperglycemia E11.65 [place] [address], [place] [address]- 9461 March, [place] [address], [place] [address]- 2893 March, [facility] [address], [place] [address]- 9068 March, Hypertension, benign I10 ; Type 2 diabetes mellitus with hyperglycemia E11.65 ; Hepatitis C B19.20 ; Gastritis and duodenitis K29.90 and Dysuria R30.0 [facility] [id number] [address]- 0432 March, Hypertension, benign I10 ; Type 2 diabetes mellitus with hyperglycemia E11.65 ; Hepatitis C B19.20 ; Gastritis and duodenitis K29.90 and Dysuria R30.0 [place] [id number] [address]- 8154 March, Panic disorder with agoraphobia F40.01 ; Chronic post- traumatic stress disorder (PTSD) F43.12 ; Epilepsy G40.909 and Bipolar I disorder with mood-congruent psychotic features F31.9 [facility] [id number] [place] [address] 71757- 8772 March, [facility] [id number] [place] [address] 71507- 1236 March, Type 2 diabetes mellitus with hyperglycemia E11.65 [facility] [id number] [place] [address] 05762- 0720 18 Jan, 2017 Bipolar I disorder with duy F31.10 [facility] [id number] [place] [address] 63552- 2848 17 Jan, 2017 Bipolar 2 disorder F31.81 ; Chronic post-traumatic stress disorder (PTSD) F43.12 and Type 2 diabetes mellitus with hyperglycemia E11.65 [place] [id number] [place] [address] 01552- 0832 17 Jan, 2017 [facility] [id number] [place] [address] 15230- 9980 Jan, [facility] [id number] [place] [address] 35194- 8755 14 Jan, 2017 Panic disorder with agoraphobia F40.01 [facility] [id number] [place] [address] 70805- 4166 13 Jan, 2017 Panic disorder with agoraphobia F40.01 ; Bipolar I disorder with mood-congruent psychotic features F31.9 ; Chronic post-traumatic stress disorder (PTSD) F43.12 and Epilepsy G40.909 [facility] [address], [place] [address]- 9624 Jan, [facility] [id number] [place] [address] 12957- 2203 Jan, [facility] [id number] [place] [address] 53999- 7364 Jan, Type 2 diabetes mellitus without complications E11.9 and Hypoglycemia E16.2 [facility] [address], [place] [address]- 0818 07 Jan, 2017 Type 2 diabetes mellitus without complications E11.9 ; Primary insomnia F51.01 and Hypertension, benign I10 [facility] [id number] [address]- 2726 Jan, [facility] [place] [id number] [place] [address] [id number] Jan, [facility] [id number] [place] [address] 07160- 9103 Dec, Type 2 diabetes mellitus with hyperglycemia E11.65 [facility] [id number] [place] [address] 18156- 6566 Dec, [facility] [id number] [place] [address] 13604- 9627 Dec, Bipolar 2 disorder F31.81 ; Panic disorder with agoraphobia F40.01 ; Chronic post-traumatic stress disorder (PTSD) F43.12 and Epilepsy G40.909 [facility] [id number] [place] [address] 69401- 8261 Dec, [facility] [id number] [place] [address] 07460- 7357 Dec, [facility] [id number] [place] [address] 63963- 0896 Dec, Bipolar 2 disorder F31.81 ; Panic disorder with agoraphobia F40.01 ; Chronic post-traumatic stress disorder (PTSD) F43.12 and Epilepsy G40.909 [facility] [id number] [place] [address] 73854- 8392 Dec, [facility] [id number] [place] [address] 26398- 7751 Dec, [facility] [id number] [place] [address] 28667- 5665 Dec, [facility] [id number] [place] [address] 94094- 0554 Dec, Type 2 diabetes mellitus with hyperglycemia E11.65 ; [facility] current use of insulin Z79.4 and Lumbago M54.5 [facility] [id number] [place] [address] 16043- 6721 Dec, [place] [address] 19023- 1331 Dec, [facility] [address] 57112- 5442 Dec, [facility] [address] 52674 -3450 Dec, Pain of left leg M79.605 and Pain in right leg M79.604 [place] [id number] [place] [address] 76783- 1512 Dec, [place] [id number] [place] [address] 81069- 7636 Dec, Type 2 diabetes mellitus with hyperglycemia E11.65 [place] [id number] [place] [address] 93113- 8567 Dec, [place] [id number] [place] [address] 17900- 6309 Dec, Type 2 diabetes mellitus with hyperglycemia E11.65 ; long term care social worker current use of insulin Z79.4 ; Vagina, candidiasis B37.3 and Other chronic pain G89.29 [place] [id number] [place] [address] 54955- 4834 Nov, Panic disorder with agoraphobia F40.01 [place] [id number] [place] [address] 06723- 2510 Nov, [place] [id number] [place] [address] 81951- 9729 Nov, [place] [id number] [address]- 0381 Nov, Hypoglycemia E16.2 [facility] [id number] [place] [address] 23842- 7604 Nov, [facility] [id number] [place] [address] 95993- 3345 Nov, [place] [id number] [place] [address] 94762- 1071 Nov, [facility] [id number] [place] [address] 51720- 6079 Nov, Type 2 diabetes mellitus with hyperglycemia E11.65 and [facility] current use of insulin Z79.4 [place] [id number] [place] [address] 04685- 1408 Nov, Panic disorder with agoraphobia F40.01 ; Bipolar 2 disorder F31.81 ; Chronic post-traumatic stress disorder (PTSD) F43.12 and Epilepsy G40.909 [place] [id number] [place] [address] 41160- 2270 Nov, Panic disorder with agoraphobia F40.01 [place] [id number] [place] [address] 58697- 8935 Oct, [place] [address], [place] [address]- 5496 Oct, [place] [id number] [place] [address] 80144- 1280 Oct, Bipolar 2 disorder F31.81 ; Panic disorder with agoraphobia F40.01 and Mood disorder F39 [facility] [id number] [place] [address] 51283- 1794 Oct, Diabetes E11.9 ; Type 2 diabetes mellitus with hyperglycemia E11.65 and long term care social worker current use of insulin Z79.4 [place] [id number] [place] [address] 37173- 1426 Oct, [place] [address] [address]- 4336 Sep, [facility] [id number] [place] [address] 6173 Sep, Bipolar 2 disorder F31.81 and Mood disorder F39 [facility] [id number] [place] [address] 76360- 6808 Sep, [facility] [id number] [place] [address] 28979- 3617 Sep, Uncontrolled type 2 diabetes mellitus without complication, without long-term current use of insulin E11.65 [place] [id number] [place] [address] 27404- 3032 Sep, [place] [id number] [place] [address] 99233- 2688 Sep, [facility] [id number] [place] [address] 43758- 2778 Sep, [facility] [id number] [place] [address] 29604- 7320 Sep, [facility] [id number] [place] [address] 27789- 9509 Sep, Bipolar 2 disorder F31.81 ; Chronic post-traumatic stress disorder (PTSD) F43.12 ; Panic disorder with agoraphobia F40.01 and Epilepsy G40.909 [facility] [id number] [place] [address] 46148- 7013 11 Sep, 2016 Bipolar 2 disorder F31.81 ; PTSD (post-traumatic stress disorder) F43.10 and Panic disorder with agoraphobia F40.01 [place] [id number] [place] [address] 91240- 3167 07 Sep, 2016 [facility] [id number] [place] [address] 89399- 3938 28 Aug, 2016 History of seizures Z87.898 ; Panic disorder with agoraphobia F40.01 and Bipolar 2 disorder F31.81 [facility] [id number] [place] [address] 09740- 9983 19 Aug, 2016 [facility] [id number] [place] [address] 03079- 9508 17 Aug, 2016 [facility] [id number] [place] [address] 37832- 6993 Aug, [facility] [address] 47216- 8027 Aug, [facility] [id number] [place] [address] 14320- 6772 Aug, [facility] [address] 47291- 9887 Aug, [facility] [address] 62918- 8418 Aug, Hypoglycemia E16.2 and Bilateral impacted cerumen H61.23 [facility] [id number] [place] [address] 04032- 3996 Aug, [facility] [id number] [place] [address] 23031- 7587 21 Jul, 2016 [facility] [id number] [place] [address] 28172- 4727 Jul, [facility] [id number] [place] [address] 58463- 6395 15 Jul, 2016 Bipolar 2 disorder F31.81 ; Panic disorder with agoraphobia F40.01 ; PTSD (post-traumatic stress disorder) F43.10 and Epilepsy G40.909 [facility] [id number] [place] [address] 22757- 3842 12 Jul, 2016 [facility] [id number] [place] [address] 94859- 7744 09 Jul, 2016 Type 2 diabetes mellitus without complications E11.9 and Coughing R05 [facility] [address] [address] 6[address] Jul, [facility] [id number] [place] [address] 05215- 5964 Jun, [facility] [id number] [address] 7269 Jun, Bipolar 2 disorder F31.81 ; PTSD (post-traumatic stress disorder) F43.10 and Panic disorder with agoraphobia F40.01 [facility] [id number] [place] [address] 35049- 1298 Jun, [facility] [id number] [place] [address] 30067- 5994 Jun, [facility] [id number] [place] [address] 86759- 5582 Jun, [facility] [id number] [place] [address] 11249- 7628 Jun, Type 2 diabetes mellitus without complications E11.9 and COPD (chronic obstructive pulmonary disease) J44.9 [facility] [id number] [place] [address] [id number] May, Dental examination Z01.20 and Dental caries K02.9 [facility] [address] [address] 8190 May, Bipolar 2 disorder F31.81 ; PTSD (post-traumatic stress disorder) F43.10 and Panic disorder with agoraphobia F40.01 [facility] [address] [address] 6[address] May, Lumbago with sciatica, right side M54.41 ; Other chronic pain G89.29 and Uncontrolled type 2 diabetes mellitus without complication, without long-term current use of insulin E11.65 [facility] [address] [address] 6764 May, Chronic bronchitis, unspecified chronic bronchitis type J42 [facility] [id number] [place] [address] 23330- 5312 May, [facility] [address] 98639- 4261 May, [facility] [id number] [place] [address] 10051- 4128 May, Chest pain, unspecified type R07.9 ; Tobacco use Z72.0 ; Type 2 diabetes mellitus without complications E11.9 ; Essential hypertension I10 ; Hyperlipidemia, unspecified hyperlipidemia type E78.5 ; Obesity (BMI 30- 39.9) E66.9 ; History of hypothyroidism Z86.39 ; Chronic obstructive pulmonary disease, unspecified COPD type J44.9 ; Anxiety F41.9 ; Bilateral claudication of lower limb I73.9 and Bipolar 2 disorder F31.81 [facility] [id number] [place] [address] 62282- 0732 May, Bipolar 2 disorder F31.81 ; Panic disorder with agoraphobia F40.01 and Tobacco abuse Z72.0 [facility] [id number] [place] [address] 90004- 6834 Apr, [facility] [id number] [place] [address] 56340- 8842 Apr, [facility] [id number] [place] [address] 99215- 8221 Apr, [facility] [id number] [place] [address] 88499- 8433 Apr, Bipolar 2 disorder F31.81 ; Panic disorder with agoraphobia F40.01 and PTSD (post-traumatic stress disorder) F43.10 [facility] [id number] [place] [address] 60060- 4420 Apr, Chronic bronchitis, unspecified chronic bronchitis type J42 ; Cervical neuritis M54.12 and Thoracic neuritis M54.[address] 17358- 4029 Apr, [facility] [id number] [place] [address] 12112- 3948 15 Apr, 2016 Cervicalgia M54.2 [facility] [id number] [place] [address] 23157- 0638 14 Apr, 2016 Bipolar 2 disorder F31.81 ; Panic disorder with agoraphobia F40.01 and PTSD (post-traumatic stress disorder) F43.10 [facility] [id number] [place] [address] 41449 -6349 13 Apr, 2016 [facility] [id number] [place] [address] 85191 -1052 09 Apr, 2016 Cough R05 and Tobacco dependence F17.200 [facility] [id number] [place] [address] 12381- 5612 06 Apr, 2016 [facility] [address] 08337- 9215 Apr, [facility] [id number] [place] [address] 79413- 7937 March, Bipolar 2 disorder F31.81 ; Panic disorder with agoraphobia F40.01 and Generalized anxiety disorder F41.1 [facility] [id number] [place] [address] 07278- 3194 March, Closed displaced fracture of fifth metatarsal bone of right foot with routine healing, subsequent encounter S92.351D [facility] [id number] [place] [address] 97637- 3025 March, Bronchitis J40 [facility] [id number] [place] [address] 57026- 3803 March, [facility] [id number] [place] [address] 70825- 0073 March, [facility] [id number] [place] [address] 08700- 3751 March, Foot pain, right M79.671 ; Cervicalgia M54.2 and 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 mellitus without complication, unspecified manager long term care insulin use status E11.9 [facility] [id number] [place] [address] 94711- 7715 March, Fracture of fifth metatarsal bone of right foot S92.351A [facility] [id number] [place] [address] 37719- 2449 March, [facility] [address] 55729- 6846 Jan, Fracture of fifth metatarsal bone of right foot S92.351A [facility] [address] 51920- 1920 Jan, Bipolar 2 disorder F31.81 ; PTSD (post-traumatic stress disorder) F43.10 ; Panic disorder with agoraphobia F40.01 and Epilepsy G40.909 [facility] [address] 16026- 0927 Jan, History of OH (myocardial infarction) I25.2 and History of high cholesterol Z86.39 [facility] [id number] [place] [address] 61732- 2315 Jan, Bipolar 2 disorder F31.81 ; Panic disorder with agoraphobia F40.01 ; Tobacco abuse Z72.0 and PTSD (post-traumatic stress disorder) F43.10 [facility] [id number] [place] [address] 46270- 5309 Jan, Fracture of fifth metatarsal bone of right foot S92.351A [facility] [id number] [place] [address] 08427- 9267 Jan, [facility] [id number] [place] [address] 07974- 8295 Jan, History of high cholesterol Z86.39 [facility] [id number] [place] [address] 79694- 0328 Jan, History of OH (myocardial infarction) I25.2 [facility] [id number] [place] [address] 01197- 8751 Jan, [facility] [id number] [place] [address] 41885- 7541 Dec, Back pain M54.9 ; Diabetes E11.9 ; Right knee pain M25.561 and Chest pain R07.9 [facility] [id number] [place] [address] 44936- 9892 Dec, [facility] [id number] [place] [address] 20951- 9941 Dec, [facility] [address] 09563- 7843 Dec, Cervicalgia M54.2 [facility] [id number] [place] [address] 24208- 7807 Dec, Bipolar 2 disorder F31.81 ; PTSD (post-traumatic stress disorder) F43.10 ; Panic disorder with agoraphobia F40.01 and Epilepsy G40.909 [facility] [id number] [place] [address] 31406- 2349 Dec, Bipolar 2 disorder F31.81 ; PTSD (post-traumatic stress disorder) F43.10 and Panic disorder with agoraphobia F40.01 [facility] [id number] [place] [address] 58913- 8154 Dec, Diabetes E11.9 [facility] [id number] [place] [address] 64485- 0135 Dec, [facility] [id number] [place] [address] 73174- 5010 Dec, Other chronic pain G89.29 ; Hepatitis C B19.20 and History of seizures Z87.898 [facility] [id number] [place] [address] 92881- 3478 Dec, [facility] [address] [place] [address]- 1156 Dec, Bipolar 2 disorder F31.81 and Other chronic pain G89.29 [facility] [address] 35080- 7796 Dec, Cervicalgia M54.2 and Diabetes E11.9 [facility] [address] 10181- 6256 Dec, [facility] [address] 05787- 7663 Dec, [facility] [address] 02135- 8115 Dec, [facility] [address] 76077- 9114 Dec, [facility] [address] 87386- 5173 Dec, Type 2 diabetes mellitus without complications E11.9 [facility] [address] 99823- 4344 Dec, [facility] [address] 66503- 4798 Dec, History of seizures Z87.898 and Hepatitis C B19.20 [facility] [id number] [place] [address] 13826- 8618 Dec, Hepatitis C B19.20 [facility] [id number] [place] [address] 92053- 7311 Dec, [facility] [id number] [place] [address] 53505- 4372 Dec, Cervicalgia M54.2 ; COPD (chronic obstructive pulmonary disease) J44.9 and Hepatitis C B19.20 [facility] [id number] [place] [address] 61818- 1940 Dec, Bipolar 2 disorder F31.81 ; History of hypertension Z86.79 ; History of anxiety Z86.59 ; Panic disorder with agoraphobia F40.01 and Epilepsy G40.909 [facility] [id number] [place] [address] 89276- 7919 Nov, [facility] [id number] [place] [address] 96266- 1250 Nov, [address] 03808- 4544 Nov, History of seizures Z87.898 ; OAB (overactive bladder) N32.81 ; Lumbago M54.5 ; Other chronic pain G89.29 ; Cervicalgia M54.2 ; Tobacco abuse Z72.0 ; Tobacco abuse counseling Z71.6 and Impaired fasting glucose R73.[address] 71519- 2765 Nov, Bipolar 2 disorder F31.81 ; PTSD (post-traumatic stress disorder) F43.10 ; History of anxiety Z86.59 ; History of COPD Z87.09 ; Panic disorder with agoraphobia F40.01 and Moderate depressed bipolar I disorder F31.32 [address] [id number] [place] [address] 39981- 8712 12 Nov, 2015 PTSD (post-traumatic stress disorder) F43.10 [facility] [id number] [place] [address] [id number] Nov, 2015 Dental examination Z01.20 and Dental caries K02.[address] [place] [address] 00071- 2735 08 Nov, 2015 History of hypertension Z86.79 ; History of hypothyroidism Z86.39 ; History of high cholesterol Z86.39 ; History of COPD Z87.09 and Overactive bladder N32.81 [facility] [id number] [place] [address] 20406- 7939 Nov, Bipolar 2 disorder F31.81 and PTSD (post-traumatic stress disorder) F43.10 [facility] [id number] [place] [address] 11894- 3240 Nov, PTSD (post-traumatic stress disorder) F43.10 ; Panic disorder with agoraphobia F40.01 ; Epilepsy G40.909 and Moderate depressed bipolar I disorder F31.32 [facility] [id number] [place] [address] 06290- 1770 Nov, [facility] [id number] [place] [address] 42365- 9993 Nov, [facility] [id number] [place] [address] 05754- 4592 Oct, [facility] [id number] [place] [address] 64523- 4580 Oct, Generalized anxiety disorder F41.1 ; Major depression, recurrent F33.9 and PTSD (post-traumatic stress disorder) F43.10 [facility] [id number] [place] [address] 43822- 0651 Oct, Elevated fasting glucose R73.01 [id number] [place] [address] 27229- 6365 Oct, Elevated fasting glucose R73.01 [facility] [id number] [place] [address] 59200- 1906 17 Oct, 2015 History of COPD Z87.09 [facility] [id number] [place] [address] 36062- 7354 15 Oct, 2015 General medical exam Z00.00 ; History of hypertension Z86.79 ; History of hypothyroidism Z86.39 ; History of hepatitis Z86.19 ; History of high cholesterol Z86.39 and History of seizures Z87.898 [facility] [id number] [place] [address] 14326- 5971 10 Oct, 2015 General medical exam Z00.00 [...] Z87.09 [facility] [address], [place] [address]- 6616 Oct, Generalized anxiety disorder F41.1 ; Depression F32.9 and PTSD (post-traumatic stress disorder) F43.10 [facility] [address], [place] [address]- 8856 14 Jan, 2015 [facility] [address] [address]- 6437 Jan, [facility] [id number] [address]- 2908 Jun, [facility] [address] [place] [id number] Jun, [facility] [address], [place] [address]- 9881 May, [facility] [address], [place] [address]- 2341 May, [facility] [address] [place] [id number] May, [facility] [address], [place] [address]- 9378 May, [facility] [address] [place] [id number] May, [facility] [id number] [address]- 8976 May, IMMUNIZATIONS No Known Immunizations SOCIAL HISTORY Never Assessed REASON FOR VISIT f/u Nancy PLAN OF CARE Activity Details Follow Up 6-8 w Reason: VITAL SIGNS Height 62 in 2018-02-16 Weight 161.6 lbs 2018-02-16 Heart Rate 80 bpm 2018-02-16 Respiratory Rate 20 2018-02-16 BMI 29.55 kg/m2 2018-02-16 Blood pressure systolic 110 mmHg 2018-02-16 Blood pressure diastolic 70 mmHg 2018-02-16 MEDICATIONS Medication Instructions Dosage Frequency Start Date End Date Duration Status Blood Glucose Monitor 1 glucometer test blood sugar Apr, Active Levemir 100 UNIT/ML Subcutaneous 2 times a day Inject 60 units 12h Dec, Active NovoLog 100 UNIT/ML Subcutaneous 3 times a day Inject 10 units 8h 12 Dec, 2017 Active Cali Contour Next Test - In Vitro 3 times a day as directed 8h March, Active Albuterol Sulfate 1.25 MG/3ML Inhalation 4 times a day 3 ml as needed 6h Apr, Active Microlet Lancets - as directed 8h March, Active Blood Glucose Test Strip And lancets. DX E11.9 Test fasting and 2 hours after meal test 3 times per day Dec, Active Symbicort 160-4.5 MCG/ACT Inhalation Twice a day- rinse mouth and spit after use 2 puffs every day Apr, Active Carafate 1 GM Orally Twice a day 1 tablet at bedtime on an empty stomach before meals 12h Jan, March, 30 day(s) Active Xyzal 5 MG Orally Once a day 1 tablet in the evening 24h 30 Active Ventolin HFA 108 (90 Base) MCG/ACT Inhalation every 6 hrs 2 puffs as needed 6h Active Xanax 2 MG Orally 3 times a day 1 tablet 8h Active Blood Glucose Monitor System w/Device DX- E11.9 Test fasting and 2 hours after meal test 3 times per day Dec, Active Montelukast Sodium 10 mg Orally Once a day 1 tablet 24h 10 Oct, 2015 30 days Active Insulin Syringe 31G X 5/16 subcutaneously 4 times a day Inject insulin 4 times daily as prescribed 6h Oct, Active Levothyroxine Sodium 150 MCG Orally Once a day 1 tablet 24h Oct, Active Prince 10-325 MG Orally 3 times a day 1 tablet as needed 8h Jan, 28 days Active Aspirin 81 MG Orally Once a day 1 tablet 24h May, 30 day(s) Active Nebulizer 1 as directed Apr, Active Ditropan XL 10 mg Orally Once a day 1 tablet 24h Jan, Jun, 30 day(s) Active Protonix 40 MG Orally Once a day 1 tablet 24h Jan, 30 day(s) Active Atenolol 50 mg Orally Once a day 1 tablet 24h 30 Active Lipitor 40 mg Orally Once a day 1 tablet 24h Active Doxepin HCl 10 mg Orally for sleep 1 capsule at bedtime Jan, 30 day(s) Active RESULTS No Results PROCEDURES [...]
--- OUTSIDE RECORDS SUMMARY | 2019-01-26 08:09 | XMS REPORT ---
Author Author GERARDO KISER [facility] Address [address] [place] [address] Care Team Providers Care Dredge Pipeman Name Role Phone MARGI GERARDO Unavailable PROBLEMS Type Condition ICD9-CM Code PQZ97-OP Code Onset Dates Condition Status SNOMED Code Problem OAB (overactive bladder) N32.81 Active 582679690 Problem Epilepsy G40.909 Active 33839597 Problem Cervicalgia M54.2 Active 01061072 Problem Other chronic pain G89.29 Active 98679533 Problem Tobacco abuse Z72.0 Active 10907988 Problem Lumbago M54.5 Active 927065136 Problem Hepatitis C B19.20 Active 72644451 Problem COPD (chronic obstructive pulmonary disease) J44.9 Active 20455073 Problem Diabetes E11.9 Active 79921150 Problem Bipolar I disorder with duy F31.10 Active 22903022 Problem Type 2 diabetes mellitus without complications E11.9 Active 544478912 Problem Stress incontinence of urine N39.3 Active 76130504 Problem Bilateral claudication of lower limb I73.9 Active 537154139 Problem Seasonal allergic rhinitis due to other allergic trigger J30.89 Active 519225212 Problem Hyperlipidemia, unspecified hyperlipidemia type E78.5 Active 10434856 Problem Hypertension, unspecified type I10 Active 60951190 Problem Chronic tension-type headache, not intractable G44.229 Active 943787502 Problem 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 mellitus without complication, without long -term current use of insulin E11.9 Active 538679945 Problem Type 2 diabetes mellitus with hyperglycemia E11.65 Active 177527853 Problem Chronic post-traumatic stress disorder (PTSD) F43.12 Active 590908554 Problem History of hypothyroidism Z86.39 Active 499508639 Problem Hypoglycemia E16.2 Active 029105094 Problem El's esophageal ulceration K22.10 Active 482051267 Problem Bipolar affective disorder, currently depressed, mild F31.31 Active 854726267 Problem Irritable bowel syndrome with diarrhea K58.0 Active 179083828 Problem Stress incontinence N39.3 Active 00691575 Problem History of hypertension Z86.79 Active 222778993 Problem Uncontrolled type 2 diabetes mellitus without complication, without long-term current use of insulin E11.65 Active 080706409 Problem Panic disorder with agoraphobia F40.01 Active 27086907 Problem Type 2 diabetes mellitus with hyperglycemia E11.65 Active 290899782 Problem History of seizures Z87.898 Active 134271826 Problem correction current use of insulin Z79.4 Active 315752528 Problem History of ME (myocardial infarction) I25.2 Active 564017914 Problem Mood disorder F39 Active 10372410 Problem Bipolar 2 disorder F31.81 Active 28706417 Problem Gastritis and duodenitis K29.90 Active 891737762 Problem History of high cholesterol Z86.39 Active 404492402 Problem Bipolar I disorder with mood-congruent psychotic features F31.9 Active 759631091 Problem Hypertension, benign I10 Active 51739599 Problem Primary insomnia F51.01 Active 0257856 ALLERGIES No Information ENCOUNTERS Encounter Location Date Diagnosis [facility] [address] [address] Jun, [facility] [address] [address] Jun, [facility] [address] [address]- [address] Jun, [facility] [id number] [place] [address] 76519- 1795 May, Lumbago M54.5 [facility] [id number] [place] [id number] May, [facility] [address] [address]- [address] May, [facility] [address] [address]- 8157 May, [facility] [address] [address]- 9824 May, [facility] [address] [address] 58[address] May, [facility] [id number] [place] [address] 84927- 5266 May, [facility] [id number] [place] [address] 31829- 1732 May, [facility] [id number] [place] [address] 07509- 5609 May, Lumbago M54.5 [facility] [id number] [place] [address] 07628- 8501 May, [facility] [id number] [place] [address] 11374- [address] Apr, [address] of the chest R93.8 [facility] [id number] [place] [address] 73394- 6122 Apr, Bipolar 2 disorder F31.81 ; Chronic post-traumatic stress disorder (PTSD) F43.12 and Panic disorder with agoraphobia F40.01 [facility] [id number] [place] [address] 62731- [address] Apr, [address] of the chest R93.8 [facility] [id number] [place] [address] 85380- [address] Apr, [address] of the chest R93.8 [facility] [id number] [place] [address] 50265- 4248 Apr, [facility] [id number] [place] [address] 80182- 8447 Apr, Type 2 diabetes mellitus with hyperglycemia E11.65 [facility] [id number] [place] [address] 59899- 2539 Apr, 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 mellitus without complication, without long-term current use of insulin E11.9 ; Watery eyes H04.203 ; Low back pain M54.5 ; Other chronic pain G89.29 ; Chronic tension-type headache, not intractable G44.229 ; Uncontrolled type 2 diabetes mellitus without complication , without long-term current use of insulin E11.65 and Bronchitis J40 [facility] [id number] [place] [address] 80696- 4604 Apr, [facility] [id number] [place] [address] 30060- 9172 Apr, Lumbago M54.5 [facility] [address] 99455- 0634 March, [facility] [id number] [place] [address] 75882 -0315 March, Cough R05 ; Pneumonia due to infectious organism, unspecified laterality, unspecified part of lung J18.9 and Non-intractable vomiting with nausea, unspecified vomiting type R11.2 [facility] [address] 80306- 9749 March, Bronchitis J40 [facility] [id number] [place] [address] 02401- 9124 March, [facility] [address] 00486- 1493 March, El's esophageal ulceration K22.10 and Type 2 diabetes mellitus with hyperglycemia E11.65 [facility] [id number] [place] [address] 55799- 0373 March, Panic disorder with agoraphobia F40.01 ; Chronic post- traumatic stress disorder (PTSD) F43.12 and Bipolar 2 disorder F31.81 [facility] [id number] [place] [address] 68470- 9734 March, Type 2 diabetes mellitus with hyperglycemia E11.65 [facility] [id number] [place] [address] 21517- 4536 March, [facility] [id number] [place] [address] 81818- 9264 March, Lumbago M54.5 [facility] [id number] [place] [address] 39378- 0505 March, [facility] [id number] [place] [address] 50372- 1329 March, Irritable bowel syndrome with diarrhea K58.0 ; Primary insomnia F51.01 ; Type 2 diabetes mellitus with hyperglycemia E11.65 and correction current use of insulin Z79.4 [facility] [id number] [place] [address] 07348- 0428 March, [facility] [id number] [place] [address] 09282- 3114 Jan, [facility] [id number] [place] [address] 58419- 5767 Jan, [facility] [id number] [place] [address] 78017- 3864 Jan, [facility] [id number] [place] [address] 59499- 1200 Jan, [facility] [id number] [place] [address] 62700- 3846 Jan, Dizziness R42 [facility] [id number] [place] [address] 44591- 0585 Jan, Bipolar affective disorder, currently depressed, mild F31.31 ; Panic disorder with agoraphobia F40.01 and Chronic post-traumatic stress disorder (PTSD) F43.12 [facility] [id number] [place] [address] 45938- 3916 Jan, Dizziness R42 [facility] [id number] [place] [address] 00087- 9084 Jan, Chest pain, unspecified type R07.9 ; Exertional dyspnea R06.09 ; Hypertension, unspecified type I10 and Hyperlipidemia, unspecified hyperlipidemia type E78.5 [facility] [id number] [place] [address] 80614- 3088 Jan, [facility] [id number] [place] [address] 11889- 2613 09 Jan, 2018 Lumbago M54.5 [facility] [id number] [place] [address] 98961- 9174 04 Jan, 2018 El's esophageal ulceration K22.10 ; Blister (nonthermal ) of oral cavity, initial encounter S00.522A ; Local infection of the skin and subcutaneous tissue, unspecified L08.9 ; Type 2 diabetes mellitus with hyperglycemia E11.65 ; correction current use of insulin Z79.4 and Stress incontinence N39.3 [facility] [id number] [place] [address] 12705- 3749 Dec, [facility] [id number] [place] [address] 38803- 6540 27 Dec, 2017 [facility] [id number] [place] [address] 21796- 9628 19 Dec, 2017 [facility] [id number] [place] [address] [phone] 16 Dec, 2017 Dental examination Z01.20 [facility] [id number] [place] [address] 85335- 6206 15 Dec, 2017 Acute pain of right knee M25.561 [facility] [address] [place] [address] 60743- 6375 14 Dec, 2017 [facility] [id number] [place] [address] 66507- 2816 14 Dec, 2017 [facility] [address] [place] [address] 08069- 9584 14 Dec, 2017 Lumbago M54.5 ; Acute pain of right knee M25.561 and Seasonal allergic rhinitis due to other allergic trigger J30.89 [facility] [address] [address]- 2040 12 Dec, 2017 Type 2 diabetes mellitus with hyperglycemia E11.65 [facility] [id number] [address]- 0191 Dec, [facility] [id number] [place] [address] 33255- 4482 Dec, [facility] [address] [address]- 1980 Dec, [facility] [id number] [place] [address] 38757- 6544 Dec, [facility] [id number] [place] [address] 04559- 4736 Dec, Chronic post-traumatic stress disorder (PTSD) F43.12 and Panic disorder with agoraphobia F40.01 [facility] [id number] [place] [address] 08742- 1556 13 Dec, 2017 Low back pain M54.5 [facility] [id number] [place] [address] 63743- 5076 Dec, Type 2 diabetes mellitus with hyperglycemia E11.65 ; correction current use of insulin Z79.4 ; Low back pain M54.5 ; Other chronic pain G89.29 and Encounter for therapeutic drug level monitoring Z51.81 [facility] [address] [address]- 9344 09 Dec, 2017 Coughing R05 [facility] [address] [address]- 7198 Dec, [facility] [id number] [address] 07 Dec, 2017 Dental examination Z01.20 [facility] [id number] [place] [address] 70332- 1347 Nov, Type 2 diabetes mellitus without complications E11.9 and Encounter for therapeutic drug level monitoring Z51.81 [facility] [address] [address]- 8233 Nov, [facility] [address] [address]- 4123 Oct, Type 2 diabetes mellitus without complications E11.9 [facility] [id number] [place] [address] 59757- 3300 Oct, Type 2 diabetes mellitus with hyperglycemia E11.65 [facility] [id number] [place] [address] 63931- 4258 Aug, Type 2 diabetes mellitus without complications E11.9 [facility] [id number] [place] [address] 20029- 0648 Aug, Type 2 diabetes mellitus without complications E11.9 ; Hypoglycemia E16.2 ; Lumbago M54.5 ; Stress incontinence of urine N39.3 and History of ME (myocardial infarction) I25.2 [facility] [id number] [place] [address] 43908- 3534 Jun, [facility] [id number] [place] [address] 76634- 7756 May, [facility] [id number] [place] [address] 64913- 7899 Apr, Panic disorder with agoraphobia F40.01 [facility] [id number] [place] [address] 45407- 3102 Apr, Panic disorder with agoraphobia F40.01 [facility] [id number] [place] [address] 02618- 8108 Apr, [facility] [id number] [place] [address] 85528- 5451 March, Other chronic pain G89.29 [facility] [id number] [place] [address] 69901- 7127 March, [facility] [id number] [place] [address] 67669- 1228 March, [facility] [id number] [place] [address] 16709- 3686 March, [facility] [address] [address]- 1809 March, [facility] [id number] [address]- 9984 March, Type 2 diabetes mellitus without complications E11.9 [facility] [address] [address]- 2079 March, Diarrhea, unspecified type R19.7 [facility] [id number] [place] [address] 09565- 2100 March, Bipolar 2 disorder F31.81 ; Chronic post-traumatic stress disorder (PTSD) F43.12 and Type 2 diabetes mellitus with hyperglycemia E11.65 [facility] [address] [address]- 5846 March, [facility] [id number] [place] [address] 52003- 0081 March, [facility] [address] [address]- 3850 March, Hypertension, benign I10 ; Type 2 diabetes mellitus with hyperglycemia E11.65 ; Hepatitis C B19.20 ; Gastritis and duodenitis K29.90 and Dysuria R30.0 [facility] [address] [address]- 7097 March, Hypertension, benign I10 ; Type 2 diabetes mellitus with hyperglycemia E11.65 ; Hepatitis C B19.20 ; Gastritis and duodenitis K29.90 and Dysuria R30.0 [facility] [address] [address]- 4259 March, Panic disorder with agoraphobia F40.01 ; Chronic post- traumatic stress disorder (PTSD) F43.12 ; Epilepsy G40.909 and Bipolar I disorder with mood-congruent psychotic features F31.9 [facility] [address] [address]- 4205 March, [facility] [address] [address]- 1972 March, Type 2 diabetes mellitus with hyperglycemia E11.65 [facility] [address] [address]- 1326 18 Jan, 2017 Bipolar I disorder with duy F31.10 [facility] [address] [address]- 8247 17 Jan, 2017 Bipolar 2 disorder F31.81 ; Chronic post-traumatic stress disorder (PTSD) F43.12 and Type 2 diabetes mellitus with hyperglycemia E11.65 [facility] [address] [address]- 8623 17 Jan, 2017 [facility] [id number] [place] [address] 34080- 4071 Jan, [facility] [id number] [place] [address] 85571- 3011 14 Jan, 2017 Panic disorder with agoraphobia F40.01 [place] [address]- 7896 13 Jan, 2017 Panic disorder with agoraphobia F40.01 ; Bipolar I disorder with mood-congruent psychotic features F31.9 ; Chronic post-traumatic stress disorder (PTSD) F43.12 and Epilepsy G40.909 [facility] [address] [address]- 4392 Jan, [facility] [address] [address]- 3995 Jan, [facility] [address] [address]- 9335 10 Jan, 2017 Type 2 diabetes mellitus without complications E11.9 and Hypoglycemia E16.2 [facility] [address] [address]- 0412 07 Jan, 2017 Type 2 diabetes mellitus without complications E11.9 ; Primary insomnia F51.01 and Hypertension, benign I10 [facility] [address] [address]- 3242 Jan, [facility] [place] [id number] [place] [address] [id number] Jan, [facility] [address] [address]- 7925 Dec, Type 2 diabetes mellitus with hyperglycemia E11.65 [facility] [id number] [place] [address] 50841- 6862 Dec, [facility] [id number] [place] [address] 32280- 1515 Dec, Bipolar 2 disorder F31.81 ; Panic disorder with agoraphobia F40.01 ; Chronic post-traumatic stress disorder (PTSD) F43.12 and Epilepsy G40.909 [facility] [address] [address]- 0726 Dec, [facility] [id number] [place] [address] 28000- 3457 Dec, [facility] [address] [address]- 3248 Dec, Bipolar 2 disorder F31.81 ; Panic disorder with agoraphobia F40.01 ; Chronic post-traumatic stress disorder (PTSD) F43.12 and Epilepsy G40.909 [facility] [address] [address]- 1034 Dec, [facility] [address] [address]- 5148 Dec, [facility] [address] [address]- 1485 Dec, 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 [address] [address]- 9905 Dec, [facility] [id number] [place] [address] 72962- 5390 Dec, [facility] [id number] [place] [address] 90708- 1100 Dec, [facility] [id number] [place] [address] 59024 -4021 Dec, Pain of left leg M79.605 and Pain in right leg M79.604 [facility] [id number] [place] [address] 24413- 7460 14 Dec, 2016 [facility] [id number] [place] [address] 67555- 8591 08 Dec, 2016 Type 2 diabetes mellitus with hyperglycemia E11.65 [facility] [id number] [place] [address] 10418- 8026 Dec, [facility] [id number] [place] [address] 38218- 9126 Dec, Type 2 diabetes mellitus with hyperglycemia E11.65 ; 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 ; Vagina, candidiasis B37.3 and Other chronic pain G89.29 [facility] [id number] [place] [address] 52935- 6926 Nov, Panic disorder with agoraphobia F40.01 [facility] [id number] [place] [address] 37848- 4022 Nov, [facility] [id number] [place] [address] 51729- 4133 Nov, [facility] [id number] [place] [address] 52154- 7238 Nov, Hypoglycemia E16.2 [facility] [id number] [place] [address] 40536- 5484 Nov, [facility] [address] [address]- 2221 Nov, [facility] [id number] [place] [address] 46929- 0859 Nov, [facility] [id number] [place] [address] 02001- 6610 Nov, Type 2 diabetes mellitus with hyperglycemia E11.65 and correction current use of insulin Z79.4 [facility] [id number] [place] [address] 03082- 0534 Nov, Panic disorder with agoraphobia F40.01 ; Bipolar 2 disorder F31.81 ; Chronic post-traumatic stress disorder (PTSD) F43.12 and Epilepsy G40.909 [facility] [id number] [place] [address] 29346- 1660 Nov, Panic disorder with agoraphobia F40.01 [facility] [id number] [place] [address] 76144- 9028 Oct, [facility] [id number] [place] [address] 70073- 9776 Oct, [facility] [id number] [place] [address] 96253- 8706 Oct, Bipolar 2 disorder F31.81 ; Panic disorder with agoraphobia F40.01 and Mood disorder F39 [facility] [id number] [place] [address] 24851- 6400 Oct, Diabetes E11.9 ; Type 2 diabetes mellitus with hyperglycemia E11.65 and 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 [id number] [place] [address] 40703- 1845 Sep, [facility] [id number] [place] [address] 12147- 4867 Sep, Uncontrolled type 2 diabetes mellitus without complication, without long-term current use of insulin E11.65 [facility] [id number] [place] [address] 64693- 2934 Sep, [facility] [id number] [place] [address] 75663- 9353 Sep, [facility] [id number] [place] [address] 14294- 9126 Sep, [facility] [id number] [place] [address] 86493- 4432 Sep, [facility] [id number] [place] [address] 98000- 6050 Sep, Bipolar 2 disorder F31.81 ; Chronic post-traumatic stress disorder (PTSD) F43.12 ; Panic disorder with agoraphobia F40.01 and Epilepsy G40.909 [facility] [facility] [id number] [place] [address] 36660- 3085 Sep, Bipolar 2 disorder F31.81 ; PTSD (post-traumatic stress disorder) F43.10 and Panic disorder with agoraphobia F40.01 [facility] [id number] [place] [address] [id number]- [phone] Sep, [facility] [id number] [place] [address] 24830- 1737 28 Aug, 2016 History of seizures Z87.898 ; Panic disorder with agoraphobia F40.01 and Bipolar 2 disorder F31.81 [facility] [id number] [place] [address] [id number]- 6588 Aug, [facility] [id number] [place], [place] [id number] [phone] 17 Aug, 2016 [facility] [id number] [place] [address] [phone]- 4922 Aug, [facility] [id number] [place] [address] [phone]- 1479 Aug, [facility] [id number] [place] [address] 70631- 9194 Aug, [facility] [address] [id number]- [address] Aug, [facility] [id number] [place] [address] 35197- 9922 Aug, Hypoglycemia E16.2 and Bilateral impacted cerumen H61.23 [facility] [id number] [place] [address] 28250- 4364 Aug, [facility] [address] 26[address]- 6247 Jul, [facility] [id number] [place] [address] [id number]- 1095 Jul, [facility] [id number] [place] [address] [phone]- 0653 15 Jul, 2016 Bipolar 2 disorder F31.81 ; Panic disorder with agoraphobia F40.01 ; PTSD (post-traumatic stress disorder) F43.10 and Epilepsy G40.909 [facility] [id number] [place] [address] 39621- 6440 Jul, [facility] [id number] [place] [address] 38946- 6112 09 Jul, 2016 Type 2 diabetes mellitus without complications E11.9 and Coughing R05 [facility] [id number] [place] [address] 47543- 4257 06 Jul, 2016 [facility] [id number] [place] [address] 00140- 3307 Jun, [facility] [address] [address] 3111 Jun, Bipolar 2 disorder F31.81 ; PTSD (post-traumatic stress disorder) F43.10 and Panic disorder with agoraphobia F40.01 [facility] [id number] [place] [address] 33944- 1400 Jun, [facility] [id number] [place] [address] 58390- 8754 Jun, [facility] [id number] [place] [address] 48042- 6220 Jun, [facility] [facility] [id number] [place] [address] 93504- 6101 Jun, Type 2 diabetes mellitus without complications E11.9 and COPD (chronic obstructive pulmonary disease) J44.9 [facility] [id number] [place] [address] [id number] May, Dental examination Z01.20 and Dental caries K02.9 [facility] [facility] [id number] [place] [address] 71115- 4138 May, Bipolar 2 disorder F31.81 ; PTSD (post-traumatic stress disorder) F43.10 and Panic disorder with agoraphobia F40.01 [place] [id number] [place] [address] 29729- 6227 May, Lumbago with sciatica, right side M54.41 ; Other chronic pain G89.29 and Uncontrolled type 2 diabetes mellitus without complication, without long-term current use of insulin E11.65 [facility] [id number] [place] [address] 32898- 7139 May, Chronic bronchitis, unspecified chronic bronchitis type J42 [facility] [id number] [place] [address] 87684- 0138 May, [facility] [id number] [place] [address] 25582- 2698 May, [place] [id number] [place] [address] 75483- 1631 13 May, 2016 Chest pain, unspecified type [...] limb I73.9 and Bipolar 2 disorder F31.81 [place] [address] 63700- 5466 May, Bipolar 2 disorder F31.81 ; Panic disorder with agoraphobia F40.01 and Tobacco abuse Z72.0 [facility] [address] 54915- 9812 Apr, [facility] [address] 23176- 1475 Apr, [facility] [facility] [address] 98340- 9195 Apr, [facility] [facility] [address] 40777- 5546 Apr, Bipolar 2 disorder F31.81 ; Panic disorder with agoraphobia F40.01 and PTSD (post-traumatic stress disorder) F43.10 [facility] [id number] [place] [address] 76294- 4782 Apr, Chronic bronchitis, unspecified chronic bronchitis type J42 ; Cervical neuritis M54.12 and Thoracic neuritis M54.[address] 06971- 6695 Apr, [facility] [address] 42024- 7188 Apr, Cervicalgia M54.2 [place] [address] 82734- 2002 14 Apr, 2016 Bipolar 2 disorder F31.81 ; Panic disorder with agoraphobia F40.01 and PTSD (post-traumatic stress disorder) F43.[address] [facility] [id number] [place] [address] 84255 -4535 Apr, [facility] [id number] [place] [address] 88068 -2557 Apr, Cough R05 and Tobacco dependence F17.200 [facility] [id number] [place] [address] 99154- 7916 Apr, [facility] [address] 04896- 6516 Apr, [facility] [id number] [place] [address] 51912- 4465 March, Bipolar 2 disorder F31.81 ; Panic disorder with agoraphobia F40.01 and Generalized anxiety disorder F41.1 [facility] [id number] [place] [address] 17475- 5487 March, Closed displaced fracture of fifth metatarsal bone of right foot with routine healing, subsequent encounter S92.351D [facility] [id number] [place] [address] 52552- 8510 March, Bronchitis J40 [facility] [id number] [place] [address] 63789- 2721 March, [facility] [id number] [place] [address] 95694- 7044 March, [facility] [id number] [place] [address] 41631- 5796 March, Foot pain, right M79.671 ; Cervicalgia M54.2 and 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 mellitus without complication, unspecified stoner hand insulin use status E11.9 [facility] [id number] [place] [address] 09466- 0024 March, Fracture of fifth metatarsal bone of right foot S92.351A [place] [id number] [place] [address] 99941- 7035 March, [facility] [id number] [place] [address] 77866- 8029 Jan, Fracture of fifth metatarsal bone of right foot S92.351A [facility] [id number] [place] [address] 13749- 7231 Jan, Bipolar 2 disorder F31.81 ; PTSD (post-traumatic stress disorder) F43.10 ; Panic disorder with agoraphobia F40.01 and Epilepsy G40.909 [facility] [id number] [place] [address] 59359- 7975 Jan, History of ME (myocardial infarction) I25.2 and History of high cholesterol Z86.39 [facility] [id number] [place] [address] 40989- 0787 Jan, Bipolar 2 disorder F31.81 ; Panic disorder with agoraphobia F40.01 ; Tobacco abuse Z72.0 and PTSD (post-traumatic stress disorder) F43.10 [facility] [id number] [place] [address] 61128- 4377 Jan, Fracture of fifth metatarsal bone of right foot S92.351A [place] [id number] [place] [address] 60497- 7951 Jan, [facility] [id number] [place] [address] 17294- 9702 Jan, History of high cholesterol Z86.39 [facility] [id number] [place] [address] 43973- 4253 Jan, History of ME (myocardial infarction) I25.2 [facility] [id number] [place] [address] 49164- 3685 Jan, [facility] [id number] [place] [address] 99550- 2736 Dec, Back pain M54.9 ; Diabetes E11.9 ; Right knee pain M25.561 and Chest pain R07.9 [facility] [id number] [place] [address] 68203- 7307 Dec, [facility] [id number] [place] [address] 31720- 5913 Dec, [place] [address] 91548- 1042 Dec, Cervicalgia M54.2 [place] [address] 32106- 1666 Dec, Bipolar 2 disorder F31.81 ; PTSD (post-traumatic stress disorder) F43.10 ; Panic disorder with agoraphobia F40.01 and Epilepsy G40.909 [place] [address] 62666- 1240 Dec, Bipolar 2 disorder F31.81 ; PTSD (post-traumatic stress disorder) F43.10 and Panic disorder with agoraphobia F40.01 [facility] [id number] [place] [address] 31971- 3527 Dec, Diabetes E11.9 [facility] [id number] [place] [address] 73919- 6269 Dec, [facility] [id number] [place] [address] 63102- 0215 Dec, Other chronic pain G89.29 ; Hepatitis C B19.20 and History of seizures Z87.898 [facility] [id number] [place] [address] 76618- 4247 Dec, [place] [address] 91619- 2205 Dec, Bipolar 2 disorder F31.81 and Other chronic pain G89.29 [place] [address] 38164- 9579 Dec, Cervicalgia M54.2 and Diabetes E11.9 [facility] [id number] [place] [address] 97366- 4570 Dec, [facility] [id number] [place] [address] 36734- 6090 Dec, [facility] [id number] [place] [address] 93312- 0904 Dec, [facility] [address] 63569- 4470 Dec, [facility] [id number] [place] [address] 35717- 5234 Dec, Type 2 diabetes mellitus without complications E11.9 [place] [address] 00271- 4657 Dec, [facility] [address] 07633- 7441 Dec, History of seizures Z87.898 and Hepatitis C B19.20 [facility] [id number] [place] [address] 23987- 3484 08 Dec, 2015 Hepatitis C B19.20 [facility] [id number] [place] [address] 46699- 2434 Dec, [facility] [id number] [place] [address] 94518- 8758 Dec, Cervicalgia M54.2 ; COPD (chronic obstructive pulmonary disease) J44.9 and Hepatitis C B19.20 [facility] [id number] [place] [address] 75281- 2372 Dec, Bipolar 2 disorder F31.81 ; History of hypertension Z86.79 ; History of anxiety Z86.59 ; Panic disorder with agoraphobia F40.01 and Epilepsy G40.909 [facility] [id number] [place] [address] 14514- 1251 Nov, [place] [id number] [place] [address] 05118- 0933 Nov, [address] 08282- 3709 Nov, History of seizures Z87.898 ; OAB (overactive bladder) N32.81 ; Lumbago M54.5 ; Other chronic pain G89.29 ; Cervicalgia M54.2 ; Tobacco abuse Z72.0 ; Tobacco abuse counseling Z71.6 and Impaired fasting glucose R73.01 [facility] [id number] [place] [address] 33633- 7539 Nov, Bipolar 2 disorder F31.81 ; PTSD (post-traumatic stress disorder) F43.10 ; History of anxiety Z86.59 ; History of COPD Z87.09 ; Panic disorder with agoraphobia F40.01 and Moderate depressed bipolar I disorder F31.32 [id number] [place] [address] 59692- 4502 12 Nov, 2015 PTSD (post-traumatic stress disorder) F43.10 [facility] [id number] [place] [address] [id number] 11 Nov, 2015 Dental examination Z01.20 and Dental caries K02.9 [id number] [place] [address] 21224- 2548 08 Nov, 2015 History of hypertension Z86.79 ; History of hypothyroidism Z86.39 ; History of high cholesterol Z86.39 ; History of COPD Z87.09 and Overactive bladder N32.81 [place] [id number] [place] [address] 17472- 7604 Nov, Bipolar 2 disorder F31.81 and PTSD (post-traumatic stress disorder) F43.10 [facility] [id number] [place] [address] 59974- 5556 Nov, PTSD (post-traumatic stress disorder) F43.10 ; Panic disorder with agoraphobia F40.01 ; Epilepsy G40.909 and Moderate depressed bipolar I disorder F31.32 [place] [id number] [place] [address] 62559- 0501 Nov, [facility] [id number] [place] [address] 82549- 2465 Nov, [facility] [id number] [place] [address] 55011- 9761 Oct, [facility] [address] 49831- 1598 Oct, Generalized anxiety disorder F41.1 ; Major depression, recurrent F33.9 and PTSD (post-traumatic stress disorder) F43.10 [id number] [place] [address] 22112- 1978 Oct, Elevated fasting glucose R73.01 [id number] [place] [address] 50782- 3081 Oct, Elevated fasting glucose R73.01 [facility] [id number] [place] [address] 42677- 5198 Oct, History of COPD Z87.09 [id number] [place] [address] 61131- 1973 Oct, General medical exam Z00.00 ; History of hypertension Z86.79 ; History of hypothyroidism Z86.39 ; History of hepatitis Z86.19 ; History of high cholesterol Z86.39 and History of seizures Z87.[id number] [place] [address] 42345- 4766 Oct, General medical exam Z00.00 ; History of hypertension Z86.79 ; History of hypothyroidism Z86.39 ; Bipolar 2 disorder F31.81 ; PTSD ( post-traumatic stress disorder) F43.10 ; History of hepatitis Z86.19 ; History of high cholesterol Z86.39 ; History of anxiety Z86.59 ; History of seizures Z87.898 ; History of ME (myocardial infarction) I25.2 and History of COPD Z87.09 [facility] [id number] 6436 Oct, Generalized anxiety disorder F41.1 ; Depression F32.9 and PTSD (post-traumatic stress disorder) F43.10 [facility] [id number] 0712 Jan, [facility] [id number]- 4004 Jan, [facility] [address] [address]- 3375 Jun, [facility] [address] [id number] Jun, [facility] [id number] [address]- 3235 May, [facility] [address] [address]- 5053 May, [facility] [address] [id number] May, [facility] [id number]- 4297 May, [place] [address] [id number] May, [facility] [address] [facility] [id number] [address]- 7284 May, IMMUNIZATIONS No Known Immunizations SOCIAL HISTORY [...] Medical History Hep C -2005 Medical History ME x 2 last in 2009 Medical History PTSD (post-traumatic stress disorder) Medical History Colon Cancer 2016 Medical History diabites II Surgical History tonsillectomy 1985 Surgical History partial hysterectomy 2004 Surgical History appendectomy 2004 Hospitalization History Surgery(s) only Hospitalization History pneumonia x3 days Hospitalization History Heart cath with stint 05/15/2016 Hospitalization History Diverticulitis, N/[facility] 01/28/17
--- OUTSIDE RECORDS SUMMARY | 2019-01-26 08:11 | XMS REPORT ---
Author Author GERARDO KISER [facility] Address [address] [place] [address] Care Team Providers Care Thread Winder Name Role Phone GERARDO KISER Unavailable PROBLEMS Type Condition ICD9-CM Code DRQ79-EC Code Onset Dates Condition Status SNOMED Code Problem OAB (overactive bladder) N32.81 Active 792221716 Problem Epilepsy G40.909 Active 10992250 Problem Cervicalgia M54.2 Active 00850455 Problem Other chronic pain G89.29 Active 80252691 Problem Tobacco abuse Z72.0 Active 69103788 Problem Lumbago M54.5 Active 930177850 Problem Hepatitis C B19.20 Active 03983842 Problem COPD (chronic obstructive pulmonary disease) J44.9 Active 20748858 Problem Diabetes E11.9 Active 85817975 Problem Bipolar I disorder with duy F31.10 Active 91287348 Problem Type 2 diabetes mellitus without complications E11.9 Active 911431815 Problem Stress incontinence of urine N39.3 Active 33858472 Problem Bilateral claudication of lower limb I73.9 Active 158758196 Problem Seasonal allergic rhinitis due to other allergic trigger J30.89 Active 926294629 Problem Hyperlipidemia, unspecified hyperlipidemia type E78.5 Active 61286149 Problem Hypertension, unspecified type I10 Active 07743824 Problem Chronic tension-type headache, not intractable G44.229 Active 050113782 Problem 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 mellitus without complication, without long -term current use of insulin E11.9 Active 537553533 Problem Type 2 diabetes mellitus with hyperglycemia E11.65 Active 727295764 Problem Chronic post-traumatic stress disorder (PTSD) F43.12 Active 210569522 Problem History of hypothyroidism Z86.39 Active 409749679 Problem Hypoglycemia E16.2 Active 286216141 Problem El's esophageal ulceration K22.10 Active 252716315 Problem Bipolar affective disorder, currently depressed, mild F31.31 Active 764875138 Problem Irritable bowel syndrome with diarrhea K58.0 Active 523457335 Problem Stress incontinence N39.3 Active 59929046 Problem History of hypertension Z86.79 Active 013542983 Problem Uncontrolled type 2 diabetes mellitus without complication, without long-term current use of insulin E11.65 Active 947921588 Problem Panic disorder with agoraphobia F40.01 Active 54691680 Problem Type 2 diabetes mellitus with hyperglycemia E11.65 Active 191630467 Problem History of seizures Z87.898 Active 603867057 Problem MCC current use of insulin Z79.4 Active 747669781 Problem History of NC (myocardial infarction) I25.2 Active 854330513 Problem Mood disorder F39 Active 87682224 Problem Bipolar 2 disorder F31.81 Active 78190772 Problem Gastritis and duodenitis K29.90 Active 531237681 Problem History of high cholesterol Z86.39 Active 875841279 Problem Bipolar I disorder with mood-congruent psychotic features F31.9 Active 856151562 Problem Hypertension, benign I10 Active 85636907 Problem Primary insomnia F51.01 Active 7307036 ALLERGIES No Information ENCOUNTERS Encounter Location Date Diagnosis [facility] [id number] [place] [address] 88602- 3824 Jun, [facility] [address] 52695- 6748 Jun, [facility] [id number] [place] [address] 89928- 9332 May, [facility] [address] [place] [address] [id number] May, [facility] [id number] [place] [address] 57347- 8789 May, [facility] [id number] [place] [address] 98463- 0145 May, [facility] [id number] [place] [address] 38032- 4890 May, [facility] [id number] [place] [address] 46220- 9086 May, [facility] [address] [place] [address]- 8203 May, [facility] [id number] [place] [address] 29435- 1137 May, [facility] [id number] [place] [address] 64714- 4452 May, Lumbago M54.5 [facility] [address] 85876- 3377 May, [facility] [id number] [place] [address] 46700- [address] Apr[address] of the chest R93.8 [facility] [id number] [place] [address] 60418- 4394 Apr, Bipolar 2 disorder F31.81 ; Chronic post-traumatic stress disorder (PTSD) F43.12 and Panic disorder with agoraphobia F40.01 [facility] [address] 31073- 8243 Apr, Abnormal CT of the chest R93.8 [facility] [id number] [place] [address] 49423- [address] Apr, [address] of the chest R93.8 [facility] [id number] [place] [address] 09117- 7647 Apr, [facility] [id number] [place] [address] 79209- 7305 Apr, Type 2 diabetes mellitus with hyperglycemia E11.65 [facility] [address] [place] [address] 55867- 9011 Apr, Controlled type 2 diabetes mellitus without complication, without long-term current use of insulin E11.9 ; Watery eyes H04.203 ; Low back pain M54.5 ; Other chronic pain G89.29 ; Chronic tension-type headache, not intractable G44.229 ; Uncontrolled type 2 diabetes mellitus without complication , without long-term current use of insulin E11.65 and Bronchitis J40 [facility] [address] [address] 5[address] Apr, [facility] [id number] [place] [address] 98143- 5581 Apr, Lumbago M54.5 [facility] [id number] [place] [address] 71144- 9167 March, [facility] [id number] [place] [address] 41317 -8843 March, Cough R05 ; Pneumonia due to infectious organism, unspecified laterality, unspecified part of lung J18.9 and Non-intractable vomiting with nausea, unspecified vomiting type R11.2 [facility] [id number] [place] [address] 56315- 5802 March, Bronchitis J40 [facility] [id number] [place] [address] 61171- 1178 March, [facility] [id number] [place] [address] 48754- 3156 March, El's esophageal ulceration K22.10 and Type 2 diabetes mellitus with hyperglycemia E11.65 [facility] [id number] [place] [address] 33004- 8895 March, Panic disorder with agoraphobia F40.01 ; Chronic post- traumatic stress disorder (PTSD) F43.12 and Bipolar 2 disorder F31.81 [facility] [id number] [place] [address] 78183- 0551 March, Type 2 diabetes mellitus with hyperglycemia E11.65 [facility] [id number] [place] [address] 19615- 6997 March, [facility] [id number] [place] [address] 72555- 7817 March, Lumbago M54.5 [facility] [id number] [place] [address] 19332- 0783 March, [facility] [id number] [address]- 9782 March, Irritable bowel syndrome with diarrhea K58.0 ; Primary insomnia F51.01 ; Type 2 diabetes mellitus with hyperglycemia E11.65 and 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 [facility] [id number] [place] [address] 42818- 2241 March, [facility] [id number] [place] [address] 89661- 9846 Jan, [facility] [id number] [place] [address] 32080- 2266 Jan, [facility] [id number] [place] [address] 65874- 0312 Jan, [facility] [id number] [place] [address] 75587- 8786 Jan, [facility] [id number] [place] [address] 91857- 0601 Jan, Dizziness R42 [facility] [id number] [place] [address] 08498- 4851 Jan, Bipolar affective disorder, currently depressed, mild F31.31 ; Panic disorder with agoraphobia F40.01 and Chronic post-traumatic stress disorder (PTSD) F43.12 [facility] [id number] [place] [address] 63234- 2225 Jan, Dizziness R42 [facility] [id number] [place] [address] 02337- 0017 Jan, Chest pain, unspecified type R07.9 ; Exertional dyspnea R06.09 ; Hypertension, unspecified type I10 and Hyperlipidemia, unspecified hyperlipidemia type E78.5 [facility] [address] [place] [address] 01414- 2145 Jan, [facility] [id number] [place] [address] 46126- 7750 Jan, Lumbago M54.5 [facility] [address] [place] [address] 40771- 6994 Jan, El's esophageal ulceration K22.10 ; Blister (nonthermal ) of oral cavity, initial encounter S00.522A ; Local infection of the skin and subcutaneous tissue, unspecified L08.9 ; Type 2 diabetes mellitus with hyperglycemia E11.65 ; 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 and Stress incontinence N39.3 [facility] [address] 78135- 7008 27 Dec, 2017 [facility] [address] 20375- 8517 27 Dec, 2017 [facility] [address] 05846- 3806 19 Dec, 2017 [facility] [address] [id number] 16 Dec, 2017 Dental examination Z01.20 [facility] [id number] [place] [address] 50408- 1411 15 Dec, 2017 Acute pain of right knee M25.561 [facility] [id number] [place] [address] 84575- 5955 14 Dec, 2017 [facility] [id number] [place] [address] 94495- 5736 Dec, [facility] [id number] [place] [address] 13986- 2327 14 Dec, 2017 Lumbago M54.5 ; Acute pain of right knee M25.561 and Seasonal allergic rhinitis due to other allergic trigger J30.89 [facility] [id number] [place] [address] 01525- 3800 12 Dec, 2017 Type 2 diabetes mellitus with hyperglycemia E11.65 [facility] [id number] [place] [address] 55560- 0845 08 Dec, 2017 [facility] [id number] [place] [address] 99268- 5110 Dec, [facility] [address] [address]- 4496 Dec, [facility] [address] [place] [address] 11316- 6080 Dec, [facility] [address] [place] [address] 56986- 4405 Dec, Chronic post-traumatic stress disorder (PTSD) F43.12 and Panic disorder with agoraphobia F40.01 [facility] [address] [address]- 6166 13 Dec, 2017 Low back pain M54.5 [facility] [address] [place] [address] 51024- 9065 12 Dec, 2017 Type 2 diabetes mellitus with hyperglycemia E11.65 ; MCC current use of insulin Z79.4 ; Low back pain M54.5 ; Other chronic pain G89.29 and Encounter for therapeutic drug level monitoring Z51.81 [facility] [address] [place] [address] 29775- 1504 09 Dec, 2017 Coughing R05 [facility] [address] [place] [address] 05758- 4592 09 Dec, 2017 [facility] [address] [place] [address] [id number] 07 Dec, 2017 Dental examination Z01.20 [facility] [address] [place] [address] 99206- 6102 Nov, Type 2 diabetes mellitus without complications E11.9 and Encounter for therapeutic drug level monitoring Z51.81 [facility] [address] [address]- 9452 Nov, [facility] [address] [address]- 5819 Oct, Type 2 diabetes mellitus without complications E11.9 [facility] [id number] [address]- 1164 Oct, Type 2 diabetes mellitus with hyperglycemia E11.65 [facility] [id number] [place] [address] 88325- 4018 Aug, Type 2 diabetes mellitus without complications E11.9 [facility] [id number] [place] [address] 06673- 8525 Aug, Type 2 diabetes mellitus without complications E11.9 ; Hypoglycemia E16.2 ; Lumbago M54.5 ; Stress incontinence of urine N39.3 and History of NC (myocardial infarction) I25.2 [facility] [id number] [place] [address] 35499- 4912 Jun, [facility] [id number] [place] [address] 80382- 9274 May, [facility] [id number] [place] [address] 79705- 6513 Apr, Panic disorder with agoraphobia F40.01 [facility] [id number] [place] [address] 32489- 1556 Apr, Panic disorder with agoraphobia F40.01 [facility] [id number] [address]- 7020 Apr, [facility] [address] [place] [address] 26825- 5794 March, Other chronic pain G89.29 [facility] [address], [place] [address]- 0069 March, [facility] [id number] [place] [address] 52359- 1507 March, [facility] [id number] [address]- 6983 March, [facility] [address] [address]- 9502 March, [facility] [address] [address]- 1619 March, Type 2 diabetes mellitus without complications E11.9 [facility] [id number] [place] [address] 95620- 5459 16 Mar, 2017 Diarrhea, unspecified type R19.7 [facility] [id number] [place] [address] 32813- 4460 March, Bipolar 2 disorder F31.81 ; Chronic post-traumatic stress disorder (PTSD) F43.12 and Type 2 diabetes mellitus with hyperglycemia E11.65 [facility] [id number] [place] [address] 56795- 9419 March, [facility] [id number] [place] [address] 82430- 2827 March, [facility] [id number] [place] [address] 35810- 3700 March, Hypertension, benign I10 ; Type 2 diabetes mellitus with hyperglycemia E11.65 ; Hepatitis C B19.20 ; Gastritis and duodenitis K29.90 and Dysuria R30.0 [facility] [id number] [place] [address] 67257- 1826 March, Hypertension, benign I10 ; Type 2 diabetes mellitus with hyperglycemia E11.65 ; Hepatitis C B19.20 ; Gastritis and duodenitis K29.90 and Dysuria R30.0 [facility] [id number] [place] [address] 78187- 8454 March, Panic disorder with agoraphobia F40.01 ; Chronic post- traumatic stress disorder (PTSD) F43.12 ; Epilepsy G40.909 and Bipolar I disorder with mood-congruent psychotic features F31.9 [facility] [address] [address]- 3931 March, [facility] [address] [place] [address] 77613- 0812 March, Type 2 diabetes mellitus with hyperglycemia E11.65 [facility] [id number] [place] [address] 59500- 9471 18 Jan, 2017 Bipolar I disorder with duy F31.10 [facility] [address] 48738- 4953 17 Jan, 2017 Bipolar 2 disorder F31.81 ; Chronic post-traumatic stress disorder (PTSD) F43.12 and Type 2 diabetes mellitus with hyperglycemia E11.65 [facility] [address] 94737- 9687 17 Jan, 2017 [facility] [address] 00075- 4654 17 Jan, 2017 [facility] [address] 59707- 1782 14 Jan, 2017 Panic disorder with agoraphobia F40.01 [facility] [address] 75833- 8289 13 Jan, 2017 Panic disorder with agoraphobia F40.01 ; Bipolar I disorder with mood-congruent psychotic features F31.9 ; Chronic post-traumatic stress disorder (PTSD) F43.12 and Epilepsy G40.909 [facility] [address] 35877- 6127 12 Jan, 2017 [facility] [id number] [place] [address] 90285- 0428 Jan, [facility] [id number] [place] [address] 80811- 5291 10 Jan, 2017 Type 2 diabetes mellitus without complications E11.9 and Hypoglycemia E16.2 [facility] [address] 90290- 0647 07 Jan, 2017 Type 2 diabetes mellitus without complications E11.9 ; Primary insomnia F51.01 and Hypertension, benign I10 [facility] [id number] [place] [address] 34361- 5567 06 Jan, 2017 [facility] [address] [id number] Jan, [facility] [address] [place] [address] 07054- 5616 Dec, Type 2 diabetes mellitus with hyperglycemia E11.65 [facility] [id number] [place] [address] 53434- 2294 Dec, [facility] [id number] [place] [address] 04082- 9309 Dec, Bipolar 2 disorder F31.81 ; Panic disorder with agoraphobia F40.01 ; Chronic post-traumatic stress disorder (PTSD) F43.12 and Epilepsy G40.909 [facility] [id number] [place] [address] 52715- 1576 Dec, [facility] [id number] [place] [address] 84035- 1207 Dec, [facility] [id number] [place] [address] 28068- 8443 Dec, Bipolar 2 disorder F31.81 ; Panic disorder with agoraphobia F40.01 ; Chronic post-traumatic stress disorder (PTSD) F43.12 and Epilepsy G40.909 [facility] [address] [place] [address] 46229- 0510 Dec, [facility] [address] [place] [address] 97669- 6946 Dec, [facility] [address] [place] [address] 31683- 2603 Dec, [facility] [address] [place] [address] 87579- 3014 Dec, Type 2 diabetes mellitus with hyperglycemia E11.65 ; 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 and Lumbago M54.5 [facility] [address] [address]- 6375 Dec, [facility] [id number] [place] [address] 68085- 0347 Dec, [facility] [id number] [place] [address] 98992- 3544 Dec, [facility] [id number] [place] [address] 64633 -9666 Dec, Pain of left leg M79.605 and Pain in right leg M79.604 [facility] [address] 64402- 3518 Dec, [facility] [address] 96399- 4359 Dec, Type 2 diabetes mellitus with hyperglycemia E11.65 [facility] [address] 44780- 3812 Dec, [facility] [address] 22310- 6517 Dec, Type 2 diabetes mellitus with hyperglycemia E11.65 ; 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 ; Vagina, candidiasis B37.3 and Other chronic pain G89.29 [facility] [address] 25329- 2597 Nov, Panic disorder with agoraphobia F40.01 [facility] [id number] [place] [address] 77056- 4416 Nov, [facility] [address] 10907- 3817 Nov, [facility] [id number] [place] [address] 01249- 4712 Nov, Hypoglycemia E16.2 [facility] [address] 07290- 0451 Nov, [facility] [id number] [place] [address] 68032- 6818 Nov, [facility] [address] [place] [address]- 9688 Nov, [facility] [id number] [place] [address] 98562- 9681 Nov, Type 2 diabetes mellitus with hyperglycemia E11.65 and MCC current use of insulin Z79.4 [facility] [address] [place] [address] 04753- 1929 Nov, Panic disorder with agoraphobia F40.01 ; Bipolar 2 disorder F31.81 ; Chronic post-traumatic stress disorder (PTSD) F43.12 and Epilepsy G40.909 [facility] [id number] [place] [address] 33628- 7881 Nov, Panic disorder with agoraphobia F40.01 [facility] [id number] [place] [address] 90357- 3282 Oct, [facility] [id number] [place] [address] 38243- 1300 Oct, [facility] [address] [place] [address] 66109- 2480 Oct, Bipolar 2 disorder F31.81 ; Panic disorder with agoraphobia F40.01 and Mood disorder F39 [facility] [address] [place] [address] 34345- 8773 Oct, Diabetes E11.9 ; Type 2 diabetes mellitus with hyperglycemia E11.65 and MCC current use of insulin Z79.4 [facility] [address] [address]- 3295 Oct, [facility] [address] [place] [address] 78448- 2293 Sep, [facility] [id number] [place] [address] 77251- 2833 Sep, Bipolar 2 disorder F31.81 and Mood disorder F39 [facility] [address] [place] [address] 21834- 3699 Sep, [facility] [id number] [address] Sep, Uncontrolled type 2 diabetes mellitus without complication, without long-term current use of insulin E11.65 [facility] [id number] [address] Sep, [facility] [id number] [place] [address] 19082- 4177 Sep, [facility] [id number] [place] [address] [id number]- [id number] Sep, [facility] [id number] [place] [address] [address]- [address] Sep, [facility] [id number] [place] [address] 43729- 4698 Sep, Bipolar 2 disorder F31.81 ; Chronic post-traumatic stress disorder (PTSD) F43.12 ; Panic disorder with agoraphobia F40.01 and Epilepsy G40.909 [facility] [id number] [place] [address] 13142- 7857 Sep, Bipolar 2 disorder F31.81 ; PTSD (post-traumatic stress disorder) F43.10 and Panic disorder with agoraphobia F40.01 [facility] [address] [address] Sep, [facility] [id number] [place] [address] 40151- 8154 Aug, History of seizures Z87.898 ; Panic disorder with agoraphobia F40.01 and Bipolar 2 disorder F31.81 [facility] [id number] [place] [address] 62225- 0019 Aug, [facility] [id number] [place] [address] 52309- 5871 Aug, [facility] [id number] [place] [address] 21651- 6585 Aug, [facility] [id number] [place] [address] 67088- 8326 Aug, [facility] [id number] [place] [address] 54153- 1532 Aug, [facility] [id number] [place] [address] 12189- 2339 Aug, [facility] [address] 14372- 0490 Aug, Hypoglycemia E16.2 and Bilateral impacted cerumen H61.23 [facility] [address] 51394- 3309 Aug, [facility] [id number] [place] [address] 82855- 9573 Jul, [facility] [address] 35071- 4167 Jul, [facility] [id number] [place] [address] 46206- 3479 15 Jul, 2016 Bipolar 2 disorder F31.81 ; Panic disorder with agoraphobia F40.01 ; PTSD (post-traumatic stress disorder) F43.10 and Epilepsy G40.909 [facility] [id number] [place] [address] 80102- 3061 Jul, [facility] [id number] [place] [address] 09118- 8516 Jul, Type 2 diabetes mellitus without complications E11.9 and Coughing R05 [facility] [id number] [place] [address] 26402- 6629 Jul, [facility] [id number] [place] [address] 66579- 1613 Jun, [facility] [id number] [place] [address] 93535- 5236 Jun, Bipolar 2 disorder F31.81 ; PTSD (post-traumatic stress disorder) F43.10 and Panic disorder with agoraphobia F40.01 [facility] [address] [address] 9429 Jun, [facility] [id number] [place] [address] 08349- 4057 Jun, [facility] [id number] [place] [address] 59230- 2345 Jun, [facility] [id number] [place] [address] 70892- 7326 Jun, Type 2 diabetes mellitus without complications E11.9 and COPD (chronic obstructive pulmonary disease) J44.9 [facility] [id number] [place] [address] [id number] May, Dental examination Z01.20 and Dental caries K02.9 [facility] [id number] [place] [address] 24414- 5650 May, Bipolar 2 disorder F31.81 ; PTSD (post-traumatic stress disorder) F43.10 and Panic disorder with agoraphobia F40.01 [place] [id number] [place] [address] 51995- 6221 May, Lumbago with sciatica, right side M54.41 ; Other chronic pain G89.29 and Uncontrolled type 2 diabetes mellitus without complication, without long-term current use of insulin E11.65 [facility] [id number] [place] [address] 87564- 1843 May, Chronic bronchitis, unspecified chronic bronchitis type J42 [facility] [id number] [place] [address] 11039- 1844 May, [facility] [id number] [place] [address] 59560- 1365 May, [facility] [id number] [place] [address] 80419- 5562 May, Chest pain, unspecified type R07.9 ; [...] and Bipolar 2 disorder F31.81 [place] [address] 94981- 6159 05 May, 2016 Bipolar 2 disorder F31.81 ; Panic disorder with agoraphobia F40.01 and Tobacco abuse Z72.0 [place] [address] 91820- 9795 Apr, [place] [address] 69605- 8476 Apr, [place] [address] 19301- 4257 Apr, [place] [address] 13098- 5383 Apr, Bipolar 2 disorder F31.81 ; Panic disorder with agoraphobia F40.01 and PTSD (post-traumatic stress disorder) F43.10 [facility] [id number] [place] [address] 72029- 9112 Apr, Chronic bronchitis, unspecified chronic bronchitis type J42 ; Cervical neuritis M54.12 and Thoracic neuritis M54.14 [facility] [id number] [place] [address] 17705- 5261 Apr, [facility] [id number] [place] [address] 59665- 8357 Apr, Cervicalgia M54.2 [facility] [id number] [place] [address] 96368- 0097 Apr, Bipolar 2 disorder F31.81 ; Panic disorder with agoraphobia F40.01 and PTSD (post-traumatic stress disorder) F43.10 [facility] [id number] [place] [address] 75071 -9941 13 Apr, 2016 [facility] [id number] [place] [address] 89263 -6496 09 Apr, 2016 Cough R05 and Tobacco dependence F17.200 [facility] [id number] [place] [address] 72328- 3561 Apr, [facility] [address] 77105- 3513 Apr, [facility] [id number] [place] [address] 26249- 2931 March, Bipolar 2 disorder F31.81 ; Panic disorder with agoraphobia F40.01 and Generalized anxiety disorder F41.1 [facility] [id number] [place] [address] 14713- 9978 March, Closed displaced fracture of fifth metatarsal bone of right foot with routine healing, subsequent encounter S92.351D [facility] [id number] [place] [address] 92633- 4566 March, Bronchitis J40 [facility] [id number] [place] [address] 65740- 3144 March, [facility] [id number] [place] [address] 43731- 5979 March, [facility] [id number] [place] [address] 40062- 8928 March, Foot pain, right M79.671 ; Cervicalgia M54.2 and Controlled type 2 diabetes mellitus without complication, 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 [facility] [id number] [place] [address] 84228- 1703 March, Fracture of fifth metatarsal bone of right foot S92.351A [facility] [id number] [place] [address] 37143- 4715 March, [place] [address] [address]- 0250 Jan, Fracture of fifth metatarsal bone of right foot S92.351A [facility] [address] [place] [address] 62168- 3443 Jan, Bipolar 2 disorder F31.81 ; PTSD (post-traumatic stress disorder) F43.10 ; Panic disorder with agoraphobia F40.01 and Epilepsy G40.909 [facility] [id number] [place] [address] 68771- 1436 Jan, History of NC (myocardial infarction) I25.2 and History of high cholesterol Z86.39 [facility] [id number] [place] [address] 79754- 1583 Jan, Bipolar 2 disorder F31.81 ; Panic disorder with agoraphobia F40.01 ; Tobacco abuse Z72.0 and PTSD (post-traumatic stress disorder) F43.10 [facility] [place] [id number] [place] [address] 47541- 3823 Jan, Fracture of fifth metatarsal bone of right foot S92.351A [facility] [id number] [place] [address] 43589- 4910 Jan, [facility] [id number] [place] [address] 30450- 6435 Jan, History of high cholesterol Z86.39 [place] [address] [place] [address] 19457- 1264 Jan, History of NC (myocardial infarction) I25.2 [place] [id number] [place] [address] 49438- 4220 Jan, [facility] [id number] [place] [address] 10230- 6116 Dec, Back pain M54.9 ; Diabetes E11.9 ; Right knee pain M25.561 and Chest pain R07.9 [id number] [place] [address] 39447- 9066 Dec, [facility] [id number] [place] [address] 05085- 6987 Dec, [place] [id number] [place] [address] 08907- 6107 Dec, Cervicalgia M54.2 [place] [id number] [place] [address] 30183- 9516 Dec, Bipolar 2 disorder F31.81 ; PTSD (post-traumatic stress disorder) F43.10 ; Panic disorder with agoraphobia F40.01 and Epilepsy G40.909 [place] [id number] [place] [address] 86385- 1884 Dec, Bipolar 2 disorder F31.81 ; PTSD (post-traumatic stress disorder) F43.10 and Panic disorder with agoraphobia F40.01 [place] [id number] [place] [address] 85659- 2073 Dec, Diabetes E11.9 [place] [id number] [place] [address] 20512- 0702 Dec, [place] [address] 66757- 3810 Dec, Other chronic pain G89.29 ; Hepatitis C B19.20 and History of seizures Z87.898 [place] [id number] [place] [address] 40399- 6671 Dec, [place] [id number] [place] [address] 18833- 9242 Dec, Bipolar 2 disorder F31.81 and Other chronic pain G89.29 [facility] [id number] [place] [address] 12999- 4207 Dec, Cervicalgia M54.2 and Diabetes E11.9 [facility] [id number] [place] [address] 19330- 3666 Dec, [facility] [address] [place] [address] 50924- 6654 Dec, [facility] [id number] [place] [address] 41687- 1253 Dec, [facility] [id number] [place] [address] 23000- 2270 Dec, [facility] [id number] [place] [address] 68115- 1794 Dec, Type 2 diabetes mellitus without complications E11.9 [facility] [address] 40143- 6963 10 Dec, 2015 [facility] [id number] [place] [address] 73975- 7235 09 Dec, 2015 History of seizures Z87.898 and Hepatitis C B19.20 [facility] [id number] [place] [address] 95934- 7165 08 Dec, 2015 Hepatitis C B19.20 [facility] [id number] [place] [address] 69728- 2862 04 Dec, 2015 [facility] [id number] [place] [address] 33444- 9380 04 Dec, 2015 Cervicalgia M54.2 ; COPD (chronic obstructive pulmonary disease) J44.9 and Hepatitis C B19.20 [facility] [id number] [place] [address] 73050- 0127 Dec, Bipolar 2 disorder F31.81 ; History of hypertension Z86.79 ; History of anxiety Z86.59 ; Panic disorder with agoraphobia F40.01 and Epilepsy G40.909 [facility] [id number] [place] [address] 04553- 0511 Nov, [facility] [id number] [place] [address] 05723- 1423 Nov, [place] [id number] [place] [address] 07718- 1218 Nov, History of seizures Z87.898 ; OAB (overactive bladder) N32.81 ; Lumbago M54.5 ; Other chronic pain G89.29 ; Cervicalgia M54.2 ; Tobacco abuse Z72.0 ; Tobacco abuse counseling Z71.6 and Impaired fasting glucose R73.01 [place] [address] 35365- 4159 Nov, Bipolar 2 disorder F31.81 ; PTSD (post-traumatic stress disorder) F43.10 ; History of anxiety Z86.59 ; History of COPD Z87.09 ; Panic disorder with agoraphobia F40.01 and Moderate depressed bipolar I disorder F31.[address] 21868- 5445 12 Nov, 2015 PTSD (post-traumatic stress disorder) F43.10 [facility] [address] [id number] Nov, Dental examination Z01.20 and Dental caries K02.[address] 92283- 3800 Nov, History of hypertension Z86.79 ; History of hypothyroidism Z86.39 ; History of high cholesterol Z86.39 ; History of COPD Z87.09 and Overactive bladder N32.[address] 97837- 3632 Nov, Bipolar 2 disorder F31.81 and PTSD (post-traumatic stress disorder) F43.[address] 71725- 6718 Nov, PTSD (post-traumatic stress disorder) F43.10 ; Panic disorder with agoraphobia F40.01 ; Epilepsy G40.909 and Moderate depressed bipolar I disorder F31.[address] 79069- 7889 Nov, [facility] [place] [address] [address]- 1376 Nov, [facility] [place] [id number] [place] [address] 42090- 6126 Oct, [facility] [address] [place] [address] 53687- 2967 Oct, Generalized anxiety disorder F41.1 ; Major depression, recurrent F33.9 and PTSD (post-traumatic stress disorder) F43.10 [place] [id number] [place] [address] 30722- 9591 Oct, Elevated fasting glucose R73.01 [place] [id number] [place] [address] 49857- 7990 Oct, Elevated fasting glucose R73.01 [facility] [id number] [place] [address] 82793- 1047 Oct, History of COPD Z87.09 [facility] [place] [address] [place] [address] 46081- 6522 Oct, General medical exam Z00.00 ; History of hypertension Z86.79 ; History of hypothyroidism Z86.39 ; History of hepatitis Z86.19 ; History of high cholesterol Z86.39 and History of seizures Z87.898 [facility] [address] [place] [address] 02606- 8411 Oct, General medical exam Z00.00 ; History of hypertension Z86.79 ; History of hypothyroidism Z86.39 ; Bipolar 2 disorder F31.81 ; PTSD ( post-traumatic stress disorder) F43.10 ; History of hepatitis Z86.19 ; History of high cholesterol Z86.39 ; History of anxiety Z86.59 ; History of seizures Z87.898 ; History of NC (myocardial infarction) I25.2 and History of COPD Z87.09 [place] [address] [address]- 9574 Oct, Generalized anxiety disorder F41.1 ; Depression F32.9 and PTSD (post-traumatic stress disorder) F43.10 [facility] [address] [facility] [id number] [address]- 4259 Jan, [facility] [id number] [address]- 7747 Jan, [facility] [id number] [address]- 3989 Jun, [place] [address] [place] [id number] Jun, [facility] [id number] [address]- 8503 May, [facility] [address] [address]- 2049 May, [place] [place] [id number] May, [facility] [address] [address]- 8504 May, [address] [id number] May, [facility] [address] [facility] [id number] [address]- 4506 May, IMMUNIZATIONS No Known Immunizations SOCIAL HISTORY Never Assessed REASON FOR VISIT Lab (walk-in) PLAN OF CARE VITAL SIGNS MEDICATIONS Unknown Medications RESULTS No Results PROCEDURES Procedure Date Ordered Result Body Site LAB NOT BILLED BY [facility] February 16, 2018 INSTRUCTIONS MEDICATIONS ADMINISTERED No Known Medications MEDICAL (GENERAL) HISTORY Type Description Date Medical History Hypothyroidism Medical History High cholesterol Medical History Hypertension Medical History Brain seizure Medical History Asthma Medical History COPD Medical History Hep C -2005 Medical History NC x 2 last in [...]
--- OUTSIDE RECORDS SUMMARY | 2019-01-26 08:12 | XMS REPORT ---
Author Author GERARDO KISER [facility] Address [address] [place] [address] Care Team Providers Care Public Works Inspector Name Role Phone GERARDO KISER Unavailable PROBLEMS Type Condition ICD9-CM Code UIX55-ZS Code Onset Dates Condition Status SNOMED Code Problem OAB (overactive bladder) N32.81 Active 263718331 Problem Epilepsy G40.909 Active 74808780 Problem Cervicalgia M54.2 Active 13522256 Problem Other chronic pain G89.29 Active 45232444 Problem Tobacco abuse Z72.0 Active 55772123 Problem Lumbago M54.5 Active 294083774 Problem Hepatitis C B19.20 Active 88563153 Problem COPD (chronic obstructive pulmonary disease) J44.9 Active 30420432 Problem Diabetes E11.9 Active 83524684 Problem Bipolar I disorder with duy F31.10 Active 68343827 Problem Type 2 diabetes mellitus without complications E11.9 Active 405562571 Problem Stress incontinence of urine N39.3 Active 80008601 Problem Bilateral claudication of lower limb I73.9 Active 368970579 Problem Seasonal allergic rhinitis due to other allergic trigger J30.89 Active 556237400 Problem Hyperlipidemia, unspecified hyperlipidemia type E78.5 Active 06310264 Problem Hypertension, unspecified type I10 Active 17514635 Problem Chronic tension-type headache, not intractable G44.229 Active 872078503 Problem Controlled type 2 diabetes mellitus without complication, without long -term current use of insulin E11.9 Active 708881489 Problem Type 2 diabetes mellitus with hyperglycemia E11.65 Active 135200262 Problem Chronic post-traumatic stress disorder (PTSD) F43.12 Active 953318350 Problem History of hypothyroidism Z86.39 Active 973546735 Problem Hypoglycemia E16.2 Active 622083740 Problem El's esophageal ulceration K22.10 Active 978221276 Problem Bipolar affective disorder, currently depressed, mild F31.31 Active 561085321 Problem Irritable bowel syndrome with diarrhea K58.0 Active 610199003 Problem Stress incontinence N39.3 Active 19196117 Problem History of hypertension Z86.79 Active 078859836 Problem Uncontrolled type 2 diabetes mellitus without complication, without long-term current use of insulin E11.65 Active 521551321 Problem Panic disorder with agoraphobia F40.01 Active 75739605 Problem Type 2 diabetes mellitus with hyperglycemia E11.65 Active 381940753 Problem History of seizures Z87.898 Active 591780281 Problem custodial current use of insulin Z79.4 Active 678571527 Problem History of PA (myocardial infarction) I25.2 Active 153581707 Problem Mood disorder F39 Active 55062198 Problem Bipolar 2 disorder F31.81 Active 96848179 Problem Gastritis and duodenitis K29.90 Active 090019150 Problem History of high cholesterol Z86.39 Active 889098649 Problem Bipolar I disorder with mood-congruent psychotic features F31.9 Active 675689708 Problem Hypertension, benign I10 Active 33430634 Problem Primary insomnia F51.01 Active 2815559 ALLERGIES No Information ENCOUNTERS Encounter Location Date Diagnosis [facility] [id number] [place] [address] 16621- 3964 Jun, [facility] [address] 04186- 5155 Jun, [facility] [address] [place] [address] 69915- 7925 May, [facility] [address] [place] [address] [id number] May, [facility] [address] [place] [address] 84216- 7846 May, [facility] [address] [place] [address] 90102- 1253 May, [facility] [address] [place] [address] 06445- 1400 May, [facility] [address] [place] [address] 43290- 0769 May, [facility] [address] [place] [address]- 8314 May, [facility] [address] [place] [address] 69123- 5080 May, [facility] [address] [place] [address] 81013- 4571 May, Lumbago M54.5 [facility] [address] 94706- 5476 May, [facility] [address] [place] [address] 83361- 9166 Apr, Abnormal CT of the chest R93.8 [facility] [address] [place] [address] 52616- 9763 Apr, Bipolar 2 disorder F31.81 ; Chronic post-traumatic stress disorder (PTSD) F43.12 and Panic disorder with agoraphobia F40.01 [facility] [address] 06488- 1919 Apr, Abnormal CT of the chest R93.8 [facility] [address] [place] [address] 02326- [address] Apr, [address] of the chest R93.8 [facility] [address] [place] [address] 26109- 4249 Apr, [facility] [address] [place] [address] 68218- 0092 Apr, Type 2 diabetes mellitus with hyperglycemia E11.65 [facility] [address] [place] [address] 85145- 2829 Apr, Controlled type 2 diabetes mellitus without complication, without long-term current use of insulin E11.9 ; Watery eyes H04.203 ; Low back pain M54.5 ; Other chronic pain G89.29 ; Chronic tension-type headache, not intractable G44.229 ; Uncontrolled type 2 diabetes mellitus without complication , without long-term current use of insulin E11.65 and Bronchitis J40 [facility] [address] [address] 5488 Apr, [facility] [address] [place] [address] 51167- 2861 Apr, Lumbago M54.5 [facility] [address] [place] [address] 59938- 3131 March, [facility] [address] [place] [address] 72218 -7007 March, Cough R05 ; Pneumonia due to infectious organism, unspecified laterality, unspecified part of lung J18.9 and Non-intractable vomiting with nausea, unspecified vomiting type R11.2 [facility] [address] [place] [address] 47562- 6977 March, Bronchitis J40 [facility] [address] [place] [address] 98277- 3458 March, [facility] [address] [place] [address] 04615- 2436 March, El's esophageal ulceration K22.10 and Type 2 diabetes mellitus with hyperglycemia E11.65 [facility] [address] [place] [address] 65999- 8205 March, Panic disorder with agoraphobia F40.01 ; Chronic post- traumatic stress disorder (PTSD) F43.12 and Bipolar 2 disorder F31.81 [facility] [address] [place] [address] 53982- 4228 March, Type 2 diabetes mellitus with hyperglycemia E11.65 [facility] [address] [place] [address] 05489- 2134 March, [facility] [address] [place] [address] 62933- 7521 March, Lumbago M54.5 [facility] [address] [place] [address] 37082- 4499 March, [facility] [address] [address]- 0532 March, Irritable bowel syndrome with diarrhea K58.0 ; Primary insomnia F51.01 ; Type 2 diabetes mellitus with hyperglycemia E11.65 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 [facility] [address] [place] [address] 28759- 9130 March, [facility] [address] [place] [address] 65436- 2717 Jan, [facility] [address] [place] [address] 35226- 5989 Jan, [facility] [address] [place] [address] 72510- 2108 Jan, [facility] [address] [place] [address] 40659- 4809 Jan, [facility] [address] [place] [address] 17553- 2516 Jan, Dizziness R42 [facility] [address] [place] [address] 06483- 5393 Jan, Bipolar affective disorder, currently depressed, mild F31.31 ; Panic disorder with agoraphobia F40.01 and Chronic post-traumatic stress disorder (PTSD) F43.12 [facility] [address] [place] [address] 12132- 0441 Jan, Dizziness R42 [facility] [address] [place] [address] 25217- 4326 Jan, Chest pain, unspecified type R07.9 ; Exertional dyspnea R06.09 ; Hypertension, unspecified type I10 and Hyperlipidemia, unspecified hyperlipidemia type E78.5 [facility] [address] [place] [address] 48126- 9182 Jan, [facility] [address] [place] [address] 93573- 9467 Jan, Lumbago M54.5 [facility] [address] [place] [address] 32362- 2021 Jan, El's esophageal ulceration K22.10 ; Blister (nonthermal ) of oral cavity, initial encounter S00.522A ; Local infection of the skin and subcutaneous tissue, unspecified L08.9 ; Type 2 diabetes mellitus with hyperglycemia E11.65 ; 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 and Stress incontinence N39.3 [facility] [address] 50664- 3237 27 Dec, 2017 [facility] [address] 15133- 3761 27 Dec, 2017 [facility] [address] 91476- 9617 19 Dec, 2017 [facility] [address] [id number] 16 Dec, 2017 Dental examination Z01.20 [facility] [address] [place] [address] 76231- 6307 15 Dec, 2017 Acute pain of right knee M25.561 [facility] [address] [place] [address] 44015- 4477 14 Dec, 2017 [facility] [address] [place] [address] 55584- 0614 Dec, [facility] [address] [place] [address] 31386- 9866 14 Dec, 2017 Lumbago M54.5 ; Acute pain of right knee M25.561 and Seasonal allergic rhinitis due to other allergic trigger J30.89 [facility] [address] [place] [address] 96312- 5949 12 Dec, 2017 Type 2 diabetes mellitus with hyperglycemia E11.65 [facility] [address] [place] [address] 45071- 7511 08 Dec, 2017 [facility] [address] [place] [address] 44612- 6208 Dec, [facility] [address] [address]- 5687 Dec, [facility] [address] [place] [address] 66882- 8449 Dec, [facility] [address] [place] [address] 87470- 4904 Dec, Chronic post-traumatic stress disorder (PTSD) F43.12 and Panic disorder with agoraphobia F40.01 [facility] [address] [address]- 4266 13 Dec, 2017 Low back pain M54.5 [facility] [address] [place] [address] 35785- 1223 12 Dec, 2017 Type 2 diabetes mellitus with hyperglycemia E11.65 ; custodial current use of insulin Z79.4 ; Low back pain M54.5 ; Other chronic pain G89.29 and Encounter for therapeutic drug level monitoring Z51.81 [facility] [address] [place] [address] 13518- 2403 09 Dec, 2017 Coughing R05 [facility] [address] [place] [address] 22208- 2049 09 Dec, 2017 [facility] [address] [place] [address] [id number] 07 Dec, 2017 Dental examination Z01.20 [facility] [address] [place] [address] 85372- 5144 Nov, Type 2 diabetes mellitus without complications E11.9 and Encounter for therapeutic drug level monitoring Z51.81 [facility] [address] [address]- 3156 Nov, [facility] [address] [place] [address]- 1684 Oct, Type 2 diabetes mellitus without complications E11.9 [facility] [address] [address]- 6216 Oct, Type 2 diabetes mellitus with hyperglycemia E11.65 [facility] [address] [place] [address] 38376- 2342 Aug, Type 2 diabetes mellitus without complications E11.9 [facility] [address] [place] [address] 71842- 7185 Aug, Type 2 diabetes mellitus without complications E11.9 ; Hypoglycemia E16.2 ; Lumbago M54.5 ; Stress incontinence of urine N39.3 and History of PA (myocardial infarction) I25.2 [facility] [address] [place] [address] 49328- 5760 Jun, [facility] [address] [place] [address] 03491- 2735 May, [facility] [address] [place] [address] 80895- 2246 Apr, Panic disorder with agoraphobia F40.01 [facility] [address] [place] [address] 80236- 6332 Apr, Panic disorder with agoraphobia F40.01 [facility] [address] [address]- 7315 Apr, [facility] [address] [place] [address] 15235- 4973 March, Other chronic pain G89.29 [facility] [address] [address]- 8078 March, [facility] [address] [place] [address] 12495- 9864 March, [facility] [address] [address]- 3882 March, [facility] [address] [address]- 3242 March, [facility] [address] [address]- 8382 March, Type 2 diabetes mellitus without complications E11.9 [facility] [address] [place] [address] 26299- 1079 16 Mar, 2017 Diarrhea, unspecified type R19.7 [facility] [address] [place] [address] 60754- 4067 March, Bipolar 2 disorder F31.81 ; Chronic post-traumatic stress disorder (PTSD) F43.12 and Type 2 diabetes mellitus with hyperglycemia E11.65 [facility] [address] [place] [address] 95423- 1764 March, [facility] [address] [place] [address] 79433- 6408 March, [facility] [address] [place] [address] 53585- 9344 March, Hypertension, benign I10 ; Type 2 diabetes mellitus with hyperglycemia E11.65 ; Hepatitis C B19.20 ; Gastritis and duodenitis K29.90 and Dysuria R30.0 [facility] [address] [place] [address] 55729- 8304 March, Hypertension, benign I10 ; Type 2 diabetes mellitus with hyperglycemia E11.65 ; Hepatitis C B19.20 ; Gastritis and duodenitis K29.90 and Dysuria R30.0 [facility] [address] [place] [address] 12507- 9755 March, Panic disorder with agoraphobia F40.01 ; Chronic post- traumatic stress disorder (PTSD) F43.12 ; Epilepsy G40.909 and Bipolar I disorder with mood-congruent psychotic features F31.9 [facility] [address] [address]- 5783 March, [facility] [address] [place] [address] 10261- 4353 March, Type 2 diabetes mellitus with hyperglycemia E11.65 [facility] [address] [place] [address] 68264- 1817 18 Jan, 2017 Bipolar I disorder with duy F31.10 [facility] [address] 93363- 3643 17 Jan, 2017 Bipolar 2 disorder F31.81 ; Chronic post-traumatic stress disorder (PTSD) F43.12 and Type 2 diabetes mellitus with hyperglycemia E11.65 [facility] [address] 14505- 9990 17 Jan, 2017 [facility] [address] 86927- 6439 17 Jan, 2017 [facility] [address] 82575- 1358 14 Jan, 2017 Panic disorder with agoraphobia F40.01 [facility] [address] 97123- 2302 13 Jan, 2017 Panic disorder with agoraphobia F40.01 ; Bipolar I disorder with mood-congruent psychotic features F31.9 ; Chronic post-traumatic stress disorder (PTSD) F43.12 and Epilepsy G40.909 [facility] [address] 29439- 6419 12 Jan, 2017 [facility] [address] [place] [address] 09364- 8539 Jan, [facility] [address] [place] [address] 75605- 3465 10 Jan, 2017 Type 2 diabetes mellitus without complications E11.9 and Hypoglycemia E16.2 [facility] [address] 33316- 0755 07 Jan, 2017 Type 2 diabetes mellitus without complications E11.9 ; Primary insomnia F51.01 and Hypertension, benign I10 [facility] [address] [place] [address] 91554- 4844 06 Jan, 2017 [facility] [address] [id number] Jan, [facility] [address] [place] [address] 08862- 9089 Dec, Type 2 diabetes mellitus with hyperglycemia E11.65 [facility] [address] [place] [address] 74886- 5477 Dec, [facility] [address] [place] [address] 95978- 9247 Dec, Bipolar 2 disorder F31.81 ; Panic disorder with agoraphobia F40.01 ; Chronic post-traumatic stress disorder (PTSD) F43.12 and Epilepsy G40.909 [facility] [address] [place] [address] 09465- 7518 Dec, [facility] [address] [place] [address] 57094- 1801 Dec, [facility] [address] [place] [address] 71101- 5105 Dec, Bipolar 2 disorder F31.81 ; Panic disorder with agoraphobia F40.01 ; Chronic post-traumatic stress disorder (PTSD) F43.12 and Epilepsy G40.909 [facility] [address] [place] [address] 14258- 0982 Dec, [facility] [address] [place] [address] 27278- 8148 Dec, [facility] [address] [place] [address] 26120- 6404 Dec, [facility] [address] [place] [address] 48081- 1470 Dec, Type 2 diabetes mellitus with hyperglycemia E11.65 ; 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 and Lumbago M54.5 [facility] [address], [place] [address]- 1610 Dec, [facility] [address] [place] [address] 15309- 7810 Dec, [facility] [address] [place] [address] 80284- 9767 Dec, [facility] [address] [place] [address] 40107 -2850 Dec, Pain of left leg M79.605 and Pain in right leg M79.604 [facility] [address] 66100- 9161 Dec, [facility] [address] 38603- 9727 Dec, Type 2 diabetes mellitus with hyperglycemia E11.65 [facility] [address] 86050- 3442 Dec, [facility] [address] 57899- 3891 Dec, Type 2 diabetes mellitus with hyperglycemia E11.65 ; 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 ; Vagina, candidiasis B37.3 and Other chronic pain G89.29 [facility] [address] 91754- 8731 Nov, Panic disorder with agoraphobia F40.01 [facility] [address] [place] [address] 85264- 6255 Nov, [facility] [address] 47552- 5284 Nov, [facility] [address] [place] [address] 05936- 1392 Nov, Hypoglycemia E16.2 [facility] [address] 36615- 1972 Nov, [facility] [address] [place] [address] 65881- 6092 Nov, [facility] [address] [place] [address]- 0561 Nov, [facility] [address] [place] [address] 26306- 1071 Nov, Type 2 diabetes mellitus with hyperglycemia E11.65 and custodial current use of insulin Z79.4 [facility] [address] [place] [address] 80660- 5147 Nov, Panic disorder with agoraphobia F40.01 ; Bipolar 2 disorder F31.81 ; Chronic post-traumatic stress disorder (PTSD) F43.12 and Epilepsy G40.909 [facility] [address] [place] [address] 49867- 5271 Nov, Panic disorder with agoraphobia F40.01 [facility] [address] [place] [address] 23448- 8930 Oct, [facility] [address] [place] [address] 32990- 5663 Oct, [facility] [address] [place] [address] 08010- 7877 Oct, Bipolar 2 disorder F31.81 ; Panic disorder with agoraphobia F40.01 and Mood disorder F39 [facility] [address] [place] [address] 65124- 9491 Oct, Diabetes E11.9 ; Type 2 diabetes mellitus with hyperglycemia E11.65 and custodial current use of insulin Z79.4 [facility] [address] [address]- 0421 Oct, [facility] [address] [place] [address] 77681- 6576 Sep, [facility] [address] [place] [address] 85438- 6370 Sep, Bipolar 2 disorder F31.81 and Mood disorder F39 [facility] [address] [place] [address] 90903- 1256 Sep, [facility] [address] [address]- 8062 Sep, Uncontrolled type 2 diabetes mellitus without complication, without long-term current use of insulin E11.65 [facility] [address], [place] [address]- 2531 Sep, [facility] [address] [place] [address] 85247- 4520 Sep, [facility] [address] [place] [address] 43144- 1150 Sep, [facility] [address] [place] [address] 21332- 7659 Sep, [facility] [address] [place] [address] 13254- 7710 Sep, Bipolar 2 disorder F31.81 ; Chronic post-traumatic stress disorder (PTSD) F43.12 ; Panic disorder with agoraphobia F40.01 and Epilepsy G40.909 [facility] [address] [place] [address] 42121- 5082 Sep, Bipolar 2 disorder F31.81 ; PTSD (post-traumatic stress disorder) F43.10 and Panic disorder with agoraphobia F40.01 [facility] [address] [address]- 8635 Sep, [facility] [address] [place] [address]29[address] Aug, History of seizures Z87.898 ; Panic disorder with agoraphobia F40.01 and Bipolar 2 disorder F31.81 [facility] [id number] [place] [phone] Aug, [facility] [id number] [place] [address] [phone]- [phone] Aug, [facility] [id number] [place] [address] [phone] Aug, [facility] [id number] [place] [address] [phone]- [phone] Aug, [facility] [id number] [place] [address] [phone]- [address] Aug, [facility] [id number] [place] [address] [phone]- [address] Aug, [facility] [address] [address] Aug, Hypoglycemia E16.2 and Bilateral impacted cerumen H61.23 [facility] [address] [address] Aug, [facility] [id number] [place] [address] [phone]- [phone] Jul, [facility] [address] [address] Jul, [facility] [id number] [place] [address] 34226- 8817 15 Jul, 2016 Bipolar 2 disorder F31.81 ; Panic disorder with agoraphobia F40.01 ; PTSD (post-traumatic stress disorder) F43.10 and Epilepsy G40.909 [facility] [id number] [place] [address] 52061- 2357 Jul, [facility] [id number] [place] [address] 83265- 4346 Jul, Type 2 diabetes mellitus without complications E11.9 and Coughing R05 [facility] [id number] [place] [address] 70512- 1272 Jul, [facility] [id number] [place] [address] 06907- 6282 Jun, [facility] [id number] [place] [address] 28784- 7585 Jun, Bipolar 2 disorder F31.81 ; PTSD (post-traumatic stress disorder) F43.10 and Panic disorder with agoraphobia F40.01 [facility] [address] [address] 4[address] Jun, [facility] [id number] [place] [address] 46848- 2444 Jun, [facility] [id number] [place] [address] 42510- 6517 Jun, [facility] [id number] [place] [address] 88017- 0018 Jun, Type 2 diabetes mellitus without complications E11.9 and COPD (chronic obstructive pulmonary disease) J44.9 [facility] [id number] [place] [address] [id number] May, Dental examination Z01.20 and Dental caries K02.9 [facility] [id number] [place] [address] 14405- 6117 May, Bipolar 2 disorder F31.81 ; PTSD (post-traumatic stress disorder) F43.10 and Panic disorder with agoraphobia F40.01 [facility] [facility] [id number] [place] [address] 75889- 2144 May, Lumbago with sciatica, right side M54.41 ; Other chronic pain G89.29 and Uncontrolled type 2 diabetes mellitus without complication, without long-term current use of insulin E11.65 [facility] [address] [place] [address] 13997- 3072 May, Chronic bronchitis, unspecified chronic bronchitis type J42 [facility] [address] [place] [address] 28731- 2206 May, [facility] [id number] [place] [address] 66247- 2527 May, [facility] [address] [place] [address] 20598- 4420 May, Chest pain, unspecified type R07.9 ; Tobacco use Z72.0 ; Type 2 diabetes mellitus without complications E11.9 ; Essential hypertension I10 ; Hyperlipidemia, unspecified hyperlipidemia type E78.5 ; Obesity (BMI 30- 39.9) E66.9 ; History of hypothyroidism Z86.39 ; Chronic obstructive pulmonary disease, unspecified COPD type J44.9 ; Anxiety F41.9 ; Bilateral claudication of lower limb I73.9 and Bipolar 2 disorder F31.81 [place] [address] 83782- 1660 05 May, 2016 Bipolar 2 disorder F31.81 ; Panic disorder with agoraphobia F40.01 and Tobacco abuse Z72.0 [address] [address] 92940- 8390 Apr, [place] [address] 69476- 6639 Apr, [place] [facility] [address] 75380- 3118 Apr, [place] [address] 91782- 5608 Apr, Bipolar 2 disorder F31.81 ; Panic disorder with agoraphobia F40.01 and PTSD (post-traumatic stress disorder) F43.10 [facility] [id number] [place] [address] 68225- 5929 Apr, Chronic bronchitis, unspecified chronic bronchitis type J42 ; Cervical neuritis M54.12 and Thoracic neuritis M54.14 [facility] [id number] [place] [address] 23140- 7905 Apr, [facility] [id number] [place] [address] 37820- 1910 Apr, Cervicalgia M54.2 [facility] [id number] [place] [address] 48289- 9533 Apr, Bipolar 2 disorder F31.81 ; Panic disorder with agoraphobia F40.01 and PTSD (post-traumatic stress disorder) F43.10 [facility] [id number] [place] [address] 58026 -5671 13 Apr, 2016 [facility] [id number] [place] [address] 39283 -7774 09 Apr, 2016 Cough R05 and Tobacco dependence F17.200 [facility] [id number] [place] [address] 00811- 6807 Apr, [facility] [address] 11239- 3955 Apr, [facility] [id number] [place] [address] 13046- 0663 March, Bipolar 2 disorder F31.81 ; Panic disorder with agoraphobia F40.01 and Generalized anxiety disorder F41.1 [facility] [address] [place] [address] 59989- 2460 March, Closed displaced fracture of fifth metatarsal bone of right foot with routine healing, subsequent encounter S92.351D [facility] [address] [place] [address] 39414- 4186 March, Bronchitis J40 [facility] [address] [place] [address] 56570- 0743 March, [facility] [id number] [place] [address] 45375- 9309 March, [facility] [address] [place] [address] 55735- 7471 March, Foot pain, right M79.671 ; Cervicalgia M54.2 and Controlled type 2 diabetes mellitus without complication, 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 [facility] [address] [place] [address] 83162- 1780 March, Fracture of fifth metatarsal bone of right foot S92.351A [facility] [address] [place] [address] 43872- 3348 March, [place] [address] [address]- 7023 Jan, Fracture of fifth metatarsal bone of right foot S92.351A [facility] [address] [place] [address] 83952- 1842 Jan, Bipolar 2 disorder F31.81 ; PTSD (post-traumatic stress disorder) F43.10 ; Panic disorder with agoraphobia F40.01 and Epilepsy G40.909 [facility] [id number] [place] [address] 54961- 6447 Jan, History of PA (myocardial infarction) I25.2 and History of high cholesterol Z86.39 [facility] [address] [place] [address] 55008- 5550 Jan, Bipolar 2 disorder F31.81 ; Panic disorder with agoraphobia F40.01 ; Tobacco abuse Z72.0 and PTSD (post-traumatic stress disorder) F43.10 [facility] [address] [place] [address] 35018- 1165 Jan, Fracture of fifth metatarsal bone of right foot S92.351A [facility] [address] [place] [address] 97451- 7059 Jan, [facility] [address] [place] [address] 91423- 4378 Jan, History of high cholesterol Z86.39 [facility] [address] [place] [address] 59023- 9540 Jan, History of PA (myocardial infarction) I25.2 [facility] [address] [place] [address] 07676- 0510 Jan, [facility] [facility] [address] [place] [address] 31451- 4880 Dec, Back pain M54.9 ; Diabetes E11.9 ; Right knee pain M25.561 and Chest pain R07.9 [address] [place] [address] 93844- 7006 Dec, [facility] [address] [place] [address] 62053- 8699 Dec, [facility] [address] [place] [address] 67981- 7572 Dec, Cervicalgia M54.2 [facility] [address] [place] [address] 36209- 4143 Dec, Bipolar 2 disorder F31.81 ; PTSD (post-traumatic stress disorder) F43.10 ; Panic disorder with agoraphobia F40.01 and Epilepsy G40.909 [facility] [address] [place] [address] 37098- 4203 Dec, Bipolar 2 disorder F31.81 ; PTSD (post-traumatic stress disorder) F43.10 and Panic disorder with agoraphobia F40.01 [facility] [address] [place] [address] 19912- 6573 Dec, Diabetes E11.9 [facility] [address] [place] [address] 60135- 0406 Dec, [place] [address] 13134- 3311 Dec, Other chronic pain G89.29 ; Hepatitis C B19.20 and History of seizures Z87.898 [facility] [address] [place] [address] 41436- 2445 Dec, [facility] [address] [place] [address] 68683- 1207 Dec, Bipolar 2 disorder F31.81 and Other chronic pain G89.29 [facility] [address] [place] [address] 69843- 8925 Dec, Cervicalgia M54.2 and Diabetes E11.9 [facility] [address] [place] [address] 13552- 3564 Dec, [facility] [address] [place] [address] 48540- 2380 Dec, [facility] [address] [place] [address] 62014- 1591 Dec, [facility] [address] [place] [address] 64696- 1385 Dec, [facility] [address] [place] [address] 94194- 5098 Dec, Type 2 diabetes mellitus without complications E11.9 [facility] [address] 73230- 6329 10 Dec, 2015 [facility] [address] [place] [address] 92551- 3778 09 Dec, 2015 History of seizures Z87.898 and Hepatitis C B19.20 [facility] [address] [place] [address] 82706- 1920 08 Dec, 2015 Hepatitis C B19.20 [facility] [address] [place] [address] 33242- 7018 04 Dec, 2015 [facility] [address] [place] [address] 35601- 4447 04 Dec, 2015 Cervicalgia M54.2 ; COPD (chronic obstructive pulmonary disease) J44.9 and Hepatitis C B19.20 [facility] [address] [place] [address] 12589- 3720 Dec, Bipolar 2 disorder F31.81 ; History of hypertension Z86.79 ; History of anxiety Z86.59 ; Panic disorder with agoraphobia F40.01 and Epilepsy G40.909 [facility] [address] [place] [address] 92123- 8674 Nov, [facility] [address] [place] [address] 82037- 5508 Nov, [address] [place] [address] 54812- 3176 Nov, History of seizures Z87.898 ; OAB (overactive bladder) N32.81 ; Lumbago M54.5 ; Other chronic pain G89.29 ; Cervicalgia M54.2 ; Tobacco abuse Z72.0 ; Tobacco abuse counseling Z71.6 and Impaired fasting glucose R73.01 [facility] [address] 05200- 4657 Nov, Bipolar 2 disorder F31.81 ; PTSD (post-traumatic stress disorder) F43.10 ; History of anxiety Z86.59 ; History of COPD Z87.09 ; Panic disorder with agoraphobia F40.01 and Moderate depressed bipolar I disorder F31.[address] 98315- 9349 12 Nov, 2015 PTSD (post-traumatic stress disorder) F43.10 [facility] [address] [id number] Nov, Dental examination Z01.20 and Dental caries K02.[address] 46277- 3808 Nov, History of hypertension Z86.79 ; History of hypothyroidism Z86.39 ; History of high cholesterol Z86.39 ; History of COPD Z87.09 and Overactive bladder N32.[address] 02620- 0408 Nov, Bipolar 2 disorder F31.81 and PTSD (post-traumatic stress disorder) F43.[address] 90672- 3221 Nov, PTSD (post-traumatic stress disorder) F43.10 ; Panic disorder with agoraphobia F40.01 ; Epilepsy G40.909 and Moderate depressed bipolar I disorder F31.[address] 70265- 9366 Nov, [facility] [address] [address]- 7960 Nov, [facility] [address] [place] [address] 31054- 1843 Oct, [facility] [address] [place] [address] 86319- 6619 Oct, Generalized anxiety disorder F41.1 ; Major depression, recurrent F33.9 and PTSD (post-traumatic stress disorder) F43.10 [facility] [address] [place] [address] 35538- 6571 Oct, Elevated fasting glucose R73.01 [address] [place] [address] 03397- 2212 Oct, Elevated fasting glucose R73.01 [facility] [address] [place] [address] 42897- 1392 Oct, History of COPD Z87.09 [facility] [address] [place] [address] 61873- 9578 Oct, General medical exam Z00.00 ; History of hypertension Z86.79 ; History of hypothyroidism Z86.39 ; History of hepatitis Z86.19 ; History of high cholesterol Z86.39 and History of seizures Z87.898 [facility] [address] [place] [address] 77775- 7847 Oct, General medical exam Z00.00 ; History of hypertension Z86.79 ; History of hypothyroidism Z86.39 ; Bipolar 2 disorder F31.81 ; PTSD ( post-traumatic stress disorder) F43.10 ; History of hepatitis Z86.19 ; History of high cholesterol Z86.39 ; History of anxiety Z86.59 ; History of seizures Z87.898 ; History of PA (myocardial infarction) I25.2 and History of COPD Z87.09 [place] [address], [place] [address]- 0379 Oct, Generalized anxiety disorder F41.1 ; Depression F32.9 and PTSD (post-traumatic stress disorder) F43.10 [facility] [address] [facility] [id number] [address]- 9324 Jan, [facility] [id number] [address]- 3835 Jan, [facility] [id number] [address]- 3254 Jun, [address] [place] [id number] Jun, [facility] [id number] [address]- 7198 May, [facility] [address], [place] [address]- 5106 May, [address] [place] [id number] May, [facility] [address], [place] [address]- 9306 May, [address] [id number] May, [facility] [address] [facility] [id number] [address]- 0969 May, IMMUNIZATIONS No Known Immunizations SOCIAL HISTORY Never Assessed REASON FOR VISIT labs PLAN OF CARE VITAL SIGNS MEDICATIONS Unknown [...]
--- OUTSIDE RECORDS SUMMARY | 2019-01-26 08:13 | XMS REPORT ---
Author Author KARTHIK WARD [facility] Address [address] [place] [address] Care Team Providers Care Bevel Polisher Name Role Phone KARTHIK WARD Unavailable PROBLEMS Type Condition ICD9-CM Code WFO43-AX Code Onset Dates Condition Status SNOMED Code Problem OAB (overactive bladder) N32.81 Active 282025536 Problem Epilepsy G40.909 Active 04869342 Problem Cervicalgia M54.2 Active 92213812 Problem Other chronic pain G89.29 Active 05309465 Problem Tobacco abuse Z72.0 Active 14854094 Problem Lumbago M54.5 Active 783167296 Problem Hepatitis C B19.20 Active 61505457 Problem COPD (chronic obstructive pulmonary disease) J44.9 Active 91246951 Problem Diabetes E11.9 Active 37248495 Problem Bipolar I disorder with duy F31.10 Active 97663974 Problem Type 2 diabetes mellitus without complications E11.9 Active 884802517 Problem Stress incontinence of urine N39.3 Active 14058114 Problem Bilateral claudication of lower limb I73.9 Active 240965049 Problem Seasonal allergic rhinitis due to other allergic trigger J30.89 Active 035399952 Problem Hyperlipidemia, unspecified hyperlipidemia type E78.5 Active 59778511 Problem Hypertension, unspecified type I10 Active 63832776 Problem Chronic tension-type headache, not intractable G44.229 Active 805569571 Problem Controlled type 2 diabetes mellitus without complication, without long -term current use of insulin E11.9 Active 258294665 Problem Type 2 diabetes mellitus with hyperglycemia E11.65 Active 232750798 Problem Chronic post-traumatic stress disorder (PTSD) F43.12 Active 420159083 Problem History of hypothyroidism Z86.39 Active 955088753 Problem Hypoglycemia E16.2 Active 002652641 Problem El's esophageal ulceration K22.10 Active 701830672 Problem Bipolar affective disorder, currently depressed, mild F31.31 Active 661185781 Problem Irritable bowel syndrome with diarrhea K58.0 Active 689171008 Problem Stress incontinence N39.3 Active 90076303 Problem History of hypertension Z86.79 Active 429512203 Problem Uncontrolled type 2 diabetes mellitus without complication, without long-term current use of insulin E11.65 Active 629232770 Problem Panic disorder with agoraphobia F40.01 Active 11633457 Problem Type 2 diabetes mellitus with hyperglycemia E11.65 Active 569737389 Problem History of seizures Z87.898 Active 273112882 Problem 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 Active 352364448 Problem History of [place] (myocardial infarction) I25.2 Active 140397416 Problem Mood disorder F39 Active 20337834 Problem Bipolar 2 disorder F31.81 Active 45714777 Problem Gastritis and duodenitis K29.90 Active 911030742 Problem History of high cholesterol Z86.39 Active 620388252 Problem Bipolar I disorder with mood-congruent psychotic features F31.9 Active 960837397 Problem Hypertension, benign I10 Active 84925409 Problem Primary insomnia F51.01 Active 5169816 ALLERGIES Substance Reaction Event Type Date Status Penicillin V Potassium Unknown Drug Allergy Jan, Active Metformin HCl diarrhea Drug Allergy Jan, Active Macrobid stomach upset Drug Allergy Jan, Active Iodine anaphylaxis Drug Allergy Jan, Active Fentanyl halucinations/insomnia Drug Allergy Jan, Active ENCOUNTERS Encounter Location Date Diagnosis [facility] [id number] [place] [address] 73219- 4310 Jun, [facility] [id number] [place] [address] 38102- 5888 Jun, [facility] [id number] [place] [address] [id number] May, [facility] [id number] [place] [address] 24920- 8612 May, [facility] [address] 88300- 4262 May, [facility] [id number] [place] [address] 47956- 6773 May, [facility] [address] [place] [address]- 1388 May, [facility] [id number] [place] [address] 02794- 5693 May, [facility] [id number] [place] [address] 63072- 9771 May, [facility] [id number] [place] [address] 41351- 8862 May, Lumbago M54.5 [facility] [id number] [place] [address] 93975- 1842 May, [facility] [id number] [place] [address] 05215- [address] Apr, [address] of the chest R93.8 [facility] [id number] [place] [address] 61936- 0216 Apr, Bipolar 2 disorder F31.81 ; Chronic post-traumatic stress disorder (PTSD) F43.12 and Panic disorder with agoraphobia F40.01 [facility] [id number] [place] [address] 46592- [address] Apr, [address] of the chest R93.8 [facility] [id number] [place] [address] 02097- [address] Apr, [address] of the chest R93.8 [facility] [id number] [place] [address] 41954- 9305 Apr, [facility] [id number] [place] [address] 41473- 0294 Apr, Type 2 diabetes mellitus with hyperglycemia E11.65 [facility] [id number] [place] [address] 59526- 4684 Apr, Controlled type 2 diabetes mellitus without complication, without long-term current use of insulin E11.9 ; Watery eyes H04.203 ; Low back pain M54.5 ; Other chronic pain G89.29 ; Chronic tension-type headache, not intractable G44.229 ; Uncontrolled type 2 diabetes mellitus without complication , without long-term current use of insulin E11.65 and Bronchitis J40 [facility] [id number] [place] [address] 80719- 0969 Apr, [facility] [id number] [place] [address] 79070- 7587 Apr, Lumbago M54.5 [facility] [id number] [place] [address] 75939- 0994 March, [facility] [id number] [place] [address] 36705 -7914 March, Cough R05 ; Pneumonia due to infectious organism, unspecified laterality, unspecified part of lung J18.9 and Non-intractable vomiting with nausea, unspecified vomiting type R11.2 [facility] [id number] [place] [address] 62020- 3767 March, Bronchitis J40 [facility] [id number] [place] [address] 56129- 5550 March, [facility] [id number] [place] [address] 34909- 9121 March, El's esophageal ulceration K22.10 and Type 2 diabetes mellitus with hyperglycemia E11.65 [facility] [id number] [place] [address] 07188- 1579 March, Panic disorder with agoraphobia F40.01 ; Chronic post- traumatic stress disorder (PTSD) F43.12 and Bipolar 2 disorder F31.81 [facility] [id number] [place] [address] 15430- 0623 March, Type 2 diabetes mellitus with hyperglycemia E11.65 [facility] [id number] [place] [address] 18554- 2801 March, [facility] [id number] [place] [address] 77424- 9676 March, Lumbago M54.5 [facility] [id number] [place] [address] 39616- 4503 March, [facility] [id number] [place] [address] 74768- 6335 March, Irritable bowel syndrome with diarrhea K58.0 ; Primary insomnia F51.01 ; Type 2 diabetes mellitus with hyperglycemia E11.65 and FCI current use of insulin Z79.4 [facility] [id number] [place] [address] 98738- 8326 March, [facility] [id number] [place] [address] 23788- 1649 Jan, [facility] [id number] [place] [address] 68816- 4606 Jan, [facility] [id number] [place] [address] 08350- 1139 Jan, [facility] [id number] [place] [address] 03353- 2601 Jan, [facility] [id number] [place] [address] 37791- 1458 Jan, Dizziness R42 [facility] [id number] [place] [address] 24887- 3667 Jan, Bipolar affective disorder, currently depressed, mild F31.31 ; Panic disorder with agoraphobia F40.01 and Chronic post-traumatic stress disorder (PTSD) F43.12 [facility] [id number] [place] [address] 44113- 7336 Jan, Dizziness R42 [facility] [id number] [place] [address] 14029- 6015 Jan, Chest pain, unspecified type R07.9 ; Exertional dyspnea R06.09 ; Hypertension, unspecified type I10 and Hyperlipidemia, unspecified hyperlipidemia type E78.5 [facility] [id number] [place] [address] 00481- 1760 Jan, [facility] [id number] [place] [address] 08392- 3570 09 Jan, 2018 Lumbago M54.5 [facility] [id number] [place] [address] 96292- 9524 04 Jan, 2018 El's esophageal ulceration K22.10 ; Blister (nonthermal ) of oral cavity, initial encounter S00.522A ; Local infection of the skin and subcutaneous tissue, unspecified L08.9 ; Type 2 diabetes mellitus with hyperglycemia E11.65 ; FCI current use of insulin Z79.4 and Stress incontinence N39.3 [facility] [id number] [place] [address] 69654- 8270 27 Dec, 2017 [facility] [id number] [place] [address] 26793- 9483 27 Dec, 2017 [facility] [id number] [place] [address] 69495- 9846 19 Dec, 2017 [facility] [id number] [place] [address] [id number] 16 Dec, 2017 Dental examination Z01.20 [facility] [id number] [place] [address] 14277- 2200 15 Dec, 2017 Acute pain of right knee M25.561 [facility] [id number] [place] [address] 38993- 8934 14 Dec, 2017 [facility] [id number] [place] [address] 68860- 9859 14 Dec, 2017 [facility] [id number] [place] [address] 99907- 7396 14 Dec, 2017 Lumbago M54.5 ; Acute pain of right knee M25.561 and Seasonal allergic rhinitis due to other allergic trigger J30.89 [facility] [id number] [place] [address] 06509- 5032 12 Dec, 2017 Type 2 diabetes mellitus with hyperglycemia E11.65 [facility] [id number] [place] [address] 32664- 6058 Dec, [facility] [id number] [place] [address] 78270- 1912 Dec, [facility] [id number] [place] [address] 17620- 5751 Dec, [facility] [id number] [place] [address] 57693- 4260 Dec, [facility] [id number] [place] [address] 71000- 2473 Dec, Chronic post-traumatic stress disorder (PTSD) F43.12 and Panic disorder with agoraphobia F40.01 [facility] [id number] [place] [address] 03978- 0008 13 Dec, 2017 Low back pain M54.5 [facility] [id number] [place] [address] 74563- 1390 Dec, Type 2 diabetes mellitus with hyperglycemia E11.65 ; FCI current use of insulin Z79.4 ; Low back pain M54.5 ; Other chronic pain G89.29 and Encounter for therapeutic drug level monitoring Z51.81 [facility] [id number] [place] [address] 15778- 4340 09 Dec, 2017 Coughing R05 [facility] [id number] [place] [address] 60748- 1838 Dec, [facility] [id number] [place] [address] [id number] Dec, 2017 Dental examination Z01.20 [facility] [id number] [place] [address] 76256- 5221 Nov, Type 2 diabetes mellitus without complications E11.9 and Encounter for therapeutic drug level monitoring Z51.81 [facility] [id number] [place] [address] 08055- 3452 Nov, [facility] [id number] [place] [address] 57197- 6589 Oct, Type 2 diabetes mellitus without complications E11.9 [facility] [id number] [place] [address] 40264- 6164 Oct, Type 2 diabetes mellitus with hyperglycemia E11.65 [facility] [id number] [place] [address] 59245- 4587 Aug, Type 2 diabetes mellitus without complications E11.9 [facility] [id number] [place] [address] 01518- 9175 Aug, Type 2 diabetes mellitus without complications E11.9 ; Hypoglycemia E16.2 ; Lumbago M54.5 ; Stress incontinence of urine N39.3 and History of [place] (myocardial infarction) I25.2 [facility] [id number] [place] [address] 58211- 7944 Jun, [facility] [id number] [place] [address] 21222- 6237 May, [facility] [id number] [place] [address] 87665- 5067 Apr, Panic disorder with agoraphobia F40.01 [facility] [id number] [place] [address] 53077- 3070 Apr, Panic disorder with agoraphobia F40.01 [facility] [id number] [place] [address] 08171- 7021 Apr, [facility] [id number] [place] [address] 30426- 7291 March, Other chronic pain G89.29 [facility] [id number] [place] [address] 15607- 3661 March, [facility] [id number] [place] [address] 08297- 9942 March, [facility] [id number] [place] [address] 86974- 2902 March, [facility] [address] [address]- 2989 March, [facility] [id number] [place] [address] 84442- 2494 March, Type 2 diabetes mellitus without complications E11.9 [facility] [id number] [place] [address] 38888- 4748 16 Mar, 2017 Diarrhea, unspecified type R19.7 [facility] [id number] [place] [address] 66504- 2258 March, Bipolar 2 disorder F31.81 ; Chronic post-traumatic stress disorder (PTSD) F43.12 and Type 2 diabetes mellitus with hyperglycemia E11.65 [facility] [id number] [place] [address] 54432- 1749 March, [facility] [id number] [place] [address] 48642- 7507 March, [facility] [id number] [place] [address] 62280- 7149 09 Mar, 2017 Hypertension, benign I10 ; Type 2 diabetes mellitus with hyperglycemia E11.65 ; Hepatitis C B19.20 ; Gastritis and duodenitis K29.90 and Dysuria R30.0 [facility] [address] [address]- 7116 08 Mar, 2017 Hypertension, benign I10 ; Type 2 diabetes mellitus with hyperglycemia E11.65 ; Hepatitis C B19.20 ; Gastritis and duodenitis K29.90 and Dysuria R30.0 [facility] [address] [address]- 8133 March, Panic disorder with agoraphobia F40.01 ; Chronic post- traumatic stress disorder (PTSD) F43.12 ; Epilepsy G40.909 and Bipolar I disorder with mood-congruent psychotic features F31.9 [facility] [address] [address]- 6109 March, [facility] [id number] [place] [address] 32115- 0270 March, Type 2 diabetes mellitus with hyperglycemia E11.65 [facility] [id number] [place] [address] 44248- 5986 18 Jan, 2017 Bipolar I disorder with duy F31.10 [facility] [id number] [place] [address] 37317- 0111 Jan, Bipolar 2 disorder F31.81 ; Chronic post-traumatic stress disorder (PTSD) F43.12 and Type 2 diabetes mellitus with hyperglycemia E11.65 [facility] [id number] [place] [address] 07565- 0192 Jan, [facility] [id number] [place] [address] 77287- 8255 Jan, [facility] [id number] [place] [address] 86506- 5254 Jan, Panic disorder with agoraphobia F40.01 [facility] [id number] [place] [address] 12170- 6791 Jan, Panic disorder with agoraphobia F40.01 ; Bipolar I disorder with mood-congruent psychotic features F31.9 ; Chronic post-traumatic stress disorder (PTSD) F43.12 and Epilepsy G40.909 [facility] [id number] [place] [address] 10379- 1068 Jan, [facility] [id number] [place] [address] 27569- 6668 Jan, [facility] [id number] [place] [address] 03185- 5556 10 Jan, 2017 Type 2 diabetes mellitus without complications E11.9 and Hypoglycemia E16.2 [facility] [id number] [place] [address] 85810- 5000 07 Jan, 2017 Type 2 diabetes mellitus without complications E11.9 ; Primary insomnia F51.01 and Hypertension, benign I10 [facility] [id number] [place] [address] 95491- 8670 Jan, [facility] [id number] [place] [address] [id number] Jan, [facility] [id number] [place] [address] [phone]- 9281 Dec, Type 2 diabetes mellitus with hyperglycemia E11.65 [facility] [id number] [place] [address] 43155- 4335 Dec, [facility] [id number] [place] [address] 59117- 5041 Dec, Bipolar 2 disorder F31.81 ; Panic disorder with agoraphobia F40.01 ; Chronic post-traumatic stress disorder (PTSD) F43.12 and Epilepsy G40.909 [facility] [id number] [place] [address] 16253- 6713 Dec, [facility] [id number] [place] [address] 69135- 0543 Dec, [facility] [id number] [place] [address] 31660- 8845 Dec, Bipolar 2 disorder F31.81 ; Panic disorder with agoraphobia F40.01 ; Chronic post-traumatic stress disorder (PTSD) F43.12 and Epilepsy G40.909 [facility] [address] [place] [address]- 0027 Dec, [facility] [id number] [place] [address] 69154- 2937 Dec, [facility] [id number] [place] [address] 34198- 4303 Dec, [facility] [id number] [place] [address] 05965- 7279 Dec, Type 2 diabetes mellitus with hyperglycemia E11.65 ; 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 and Lumbago M54.5 [facility] [id number] [place] [address] 78785- 4964 Dec, [facility] [id number] [place] [address] 54317- 1861 Dec, [facility] [id number] [place] [address] 62647- 7301 Dec, [facility] [id number] [place] [address] 06113 -3779 Dec, Pain of left leg M79.605 and Pain in right leg M79.604 [facility] [id number] [place] [address] 44435- 5614 Dec, [facility] [address] 99749- 9632 Dec, Type 2 diabetes mellitus with hyperglycemia E11.65 [facility] [id number] [place] [address] 16308- 5562 Dec, [facility] [id number] [place] [address] 32996- 3818 Dec, Type 2 diabetes mellitus with hyperglycemia E11.65 ; FCI current use of insulin Z79.4 ; Vagina, candidiasis B37.3 and Other chronic pain G89.29 [facility] [id number] [place] [address] 81655- 5552 Nov, Panic disorder with agoraphobia F40.01 [facility] [id number] [place] [address] 00778- 8905 Nov, [facility] [id number] [place] [address] 16462- 4368 Nov, [facility] [address] 66058- 0245 Nov, Hypoglycemia E16.2 [facility] [id number] [place] [address] 58713- 7523 Nov, [facility] [address] [place] [address]- 8890 Nov, [facility] [id number] [place] [address] 37138- 4480 Nov, [facility] [id number] [place] [address] 39686- 0417 Nov, Type 2 diabetes mellitus with hyperglycemia E11.65 and FCI current use of insulin Z79.4 [facility] [id number] [place] [address] 56293- 5469 Nov, Panic disorder with agoraphobia F40.01 ; Bipolar 2 disorder F31.81 ; Chronic post-traumatic stress disorder (PTSD) F43.12 and Epilepsy G40.909 [facility] [id number] [place] [address] 15031- 9960 Nov, Panic disorder with agoraphobia F40.01 [facility] [id number] [place] [address] 29586- 2461 Oct, [facility] [id number] [place] [address] 97034- 1351 Oct, [facility] [id number] [place] [address] 79285- 7702 Oct, Bipolar 2 disorder F31.81 ; Panic disorder with agoraphobia F40.01 and Mood disorder F39 [facility] [id number] [place] [address] [phone] Oct, Diabetes E11.9 ; Type 2 diabetes mellitus with hyperglycemia E11.65 and 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 [place] [id number] [place] [address] [phone] Oct, [place] [id number] [place] [address] [phone] Sep, [facility] [id number] [place] [address] [phone]- 2647 Sep, Bipolar 2 disorder F31.81 and Mood disorder F39 [facility] [id number] [place] [address] [phone] Sep, [facility] [id number] [place] [address] [phone] Sep, Uncontrolled type 2 diabetes mellitus without complication, without long-term current use of insulin E11.65 [place] [id number] [place] [address] [phone] Sep, [facility] [id number] [place] [address] [phone] Sep, [place] [id number] [place] [address] [phone] Sep, [place] [id number] [place] [address] [phone] Sep, [place] [id number] [place] [address] [phone]- [phone] Sep, Bipolar 2 disorder F31.81 ; Chronic post-traumatic stress disorder (PTSD) F43.12 ; Panic disorder with agoraphobia F40.01 and Epilepsy G40.909 [facility] [id number] [place] [address] 47035- 6482 Sep, Bipolar 2 disorder F31.81 ; PTSD (post-traumatic stress disorder) F43.10 and Panic disorder with agoraphobia F40.01 [place] [id number] [place] [address] 99653- 7590 Sep, [facility] [id number] [place] [address] 30171- 1741 Aug, History of seizures Z87.898 ; Panic disorder with agoraphobia F40.01 and Bipolar 2 disorder F31.81 [facility] [id number] [place] [address] 47253- 6427 Aug, [facility] [id number] [place] [address] 81497- 9162 Aug, [facility] [id number] [place] [address] 45933- 4364 Aug, [facility] [id number] [place] [address] 19666- 9374 Aug, [facility] [id number] [place] [address] 46824- 1038 Aug, [facility] [address] 35901- 7128 Aug, [facility] [id number] [place] [address] 90254- 3701 Aug, Hypoglycemia E16.2 and Bilateral impacted cerumen H61.23 [facility] [id number] [place] [address] 46700- 4678 Aug, [facility] [address] 41728- 2295 Jul, [facility] [id number] [place] [address] 90117- 7881 Jul, [facility] [id number] [place] [address] 80369- 5779 15 Jul, 2016 Bipolar 2 disorder F31.81 ; Panic disorder with agoraphobia F40.01 ; PTSD (post-traumatic stress disorder) F43.10 and Epilepsy G40.909 [facility] [id number] [place] [address] 05119- 8905 Jul, [facility] [id number] [place] [address] 17345- 6246 09 Jul, 2016 Type 2 diabetes mellitus without complications E11.9 and Coughing R05 [facility] [id number] [place] [address] 30920- 0114 06 Jul, 2016 [facility] [id number] [place] [address] 97367- 0376 Jun, [facility] [address] [place] [address] 5402 Jun, Bipolar 2 disorder F31.81 ; PTSD (post-traumatic stress disorder) F43.10 and Panic disorder with agoraphobia F40.01 [facility] [id number] [place] [address] 97408- 1939 Jun, [facility] [id number] [place] [address] 12822- 8949 Jun, [facility] [id number] [place] [address] 67466- 6586 Jun, [facility] [id number] [place] [address] 13140- 0695 Jun, Type 2 diabetes mellitus without complications E11.9 and COPD (chronic obstructive pulmonary disease) J44.9 [facility] [id number] [place] [address] [id number] May, Dental examination Z01.20 and Dental caries K02.9 [facility] [id number] [place] [address] 70239- 2878 May, Bipolar 2 disorder F31.81 ; PTSD (post-traumatic stress disorder) F43.10 and Panic disorder with agoraphobia F40.01 [facility] [id number] [place] [address] 92984- 6674 May, Lumbago with sciatica, right side M54.41 ; Other chronic pain G89.29 and Uncontrolled type 2 diabetes mellitus without complication, without long-term current use of insulin E11.65 [facility] [id number] [place] [address] 96458- 1517 May, Chronic bronchitis, unspecified chronic bronchitis type J42 [facility] [id number] [place] [address] 72859- 1357 May, [facility] [id number] [place] [address] 80223- 9823 May, [facility] [address] [place] [address]- 1037 13 May, 2016 Chest pain, unspecified type [...] limb I73.9 and Bipolar 2 disorder F31.81 [facility] [id number] [place] [address] 23269- 9610 May, Bipolar 2 disorder F31.81 ; Panic disorder with agoraphobia F40.01 and Tobacco abuse Z72.0 [facility] [address] 20248- 4624 Apr, [facility] [address] 57775- 3864 Apr, [facility] [id number] [place] [address] 43468- 5509 Apr, [address] 38983- 5899 Apr, Bipolar 2 disorder F31.81 ; Panic disorder with agoraphobia F40.01 and PTSD (post-traumatic stress disorder) F43.10 [facility] [id number] [place] [address] 61528- 2858 Apr, Chronic bronchitis, unspecified chronic bronchitis type J42 ; Cervical neuritis M54.12 and Thoracic neuritis M54.[address] 64835- 1299 Apr, [facility] [address] 49699- 4668 Apr, Cervicalgia M54.[address] 03914- 8251 Apr, Bipolar 2 disorder F31.81 ; Panic disorder with agoraphobia F40.01 and PTSD (post-traumatic stress disorder) F43.10 [facility] [id number] [place] [address] 62820 -9057 Apr, [facility] [id number] [place] [address] 53400 -4442 09 Apr, 2016 Cough R05 and Tobacco dependence F17.200 [place] [address] 60719- 1849 Apr, [facility] [address] 63747- 0620 Apr, [facility] [id number] [place] [address] 80512- 0553 March, Bipolar 2 disorder F31.81 ; Panic disorder with agoraphobia F40.01 and Generalized anxiety disorder F41.1 [facility] [id number] [place] [address] 22755- 8070 March, Closed displaced fracture of fifth metatarsal bone of right foot with routine healing, subsequent encounter S92.351D [facility] [address] 74436- 0974 March, Bronchitis J40 [facility] [id number] [place] [address] 09132- 8886 March, [facility] [id number] [place] [address] 78106- 9743 March, [facility] [id number] [place] [address] 21568- 5163 March, Foot pain, right M79.671 ; Cervicalgia M54.2 and Controlled type 2 diabetes mellitus without complication, 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 [facility] [id number] [place] [address] 13407- 0383 March, Fracture of fifth metatarsal bone of right foot S92.351A [facility] [id number] [place] [address] 64768- 5835 March, [facility] [address] 79554- 4537 Jan, Fracture of fifth metatarsal bone of right foot S92.351A [facility] [id number] [place] [address] 86337- 3673 Jan, Bipolar 2 disorder F31.81 ; PTSD (post-traumatic stress disorder) F43.10 ; Panic disorder with agoraphobia F40.01 and Epilepsy G40.909 [place] [place] [address] 23536- 3287 Jan, History of [place] (myocardial infarction) I25.2 and History of high cholesterol Z86.39 [facility] [id number] [place] [address] 40755- 9942 Jan, Bipolar 2 disorder F31.81 ; Panic disorder with agoraphobia F40.01 ; Tobacco abuse Z72.0 and PTSD (post-traumatic stress disorder) F43.10 [facility] [address] 61665- 0214 Jan, Fracture of fifth metatarsal bone of right foot S92.351A [facility] [id number] [place] [address] 18862- 6503 Jan, [facility] [id number] [place] [address] 55439- 1241 Jan, History of high cholesterol Z86.39 [facility] [id number] [place] [address] 67250- 5264 Jan, History of [place] (myocardial infarction) I25.2 [facility] [id number] [place] [address] 09762- 9859 Jan, [facility] [id number] [place] [address] 01977- 6642 Dec, Back pain M54.9 ; Diabetes E11.9 ; Right knee pain M25.561 and Chest pain R07.9 [facility] [id number] [place] [address] 49963- 7481 Dec, [facility] [id number] [place] [address] 49349- 2233 Dec, [facility] [address] 69846- 3445 Dec, Cervicalgia M54.2 [place] [address] 97673- 5905 Dec, Bipolar 2 disorder F31.81 ; PTSD (post-traumatic stress disorder) F43.10 ; Panic disorder with agoraphobia F40.01 and Epilepsy G40.909 [place] [address] 60878- 6236 Dec, Bipolar 2 disorder F31.81 ; PTSD (post-traumatic stress disorder) F43.10 and Panic disorder with agoraphobia F40.01 [facility] [id number] [place] [address] 25641- 5084 Dec, Diabetes E11.9 [facility] [id number] [place] [address] 17053- 4249 Dec, [facility] [id number] [place] [address] 22833- 7567 Dec, Other chronic pain G89.29 ; Hepatitis C B19.20 and History of seizures Z87.898 [facility] [id number] [place] [address] 93160- 5411 Dec, [facility] [address] 01567- 0927 Dec, Bipolar 2 disorder F31.81 and Other chronic pain G89.29 [facility] [id number] [place] [address] 83090- 3106 Dec, Cervicalgia M54.2 and Diabetes E11.9 [facility] [address] [address]- 7336 Dec, [facility] [id number] [place] [address] 07311- 1115 18 Dec, 2015 [facility] [id number] [place] [address] 55384- 0127 Dec, [facility] [id number] [place] [address] 12323- 8534 Dec, [facility] [id number] [place] [address] 91833- 3811 Dec, Type 2 diabetes mellitus without complications E11.9 [facility] [id number] [place] [address] 94402- 6624 10 Dec, 2015 [facility] [id number] [place] [address] 22688- 2124 Dec, History of seizures Z87.898 and Hepatitis C B19.20 [facility] [id number] [place] [address] 50158- 8617 08 Dec, 2015 Hepatitis C B19.20 [facility] [id number] [place] [address] 71790- 0285 Dec, [facility] [id number] [place] [address] 86466- 5209 Dec, Cervicalgia M54.2 ; COPD (chronic obstructive pulmonary disease) J44.9 and Hepatitis C B19.20 [facility] [id number] [place] [address] 37796- 5347 Dec, Bipolar 2 disorder F31.81 ; History of hypertension Z86.79 ; History of anxiety Z86.59 ; Panic disorder with agoraphobia F40.01 and Epilepsy G40.909 [facility] [id number] [place] [address] 51517- 1919 Nov, [id number] [place] [address] 52446- 1345 Nov, [address] 59362- 9164 Nov, History of seizures Z87.898 ; OAB (overactive bladder) N32.81 ; Lumbago M54.5 ; Other chronic pain G89.29 ; Cervicalgia M54.2 ; Tobacco abuse Z72.0 ; Tobacco abuse counseling Z71.6 and Impaired fasting glucose R73.01 [place] [id number] [place] [address] 41297- 3057 14 Nov, 2015 Bipolar 2 disorder F31.81 ; PTSD (post-traumatic stress disorder) F43.10 ; History of anxiety Z86.59 ; History of COPD Z87.09 ; Panic disorder with agoraphobia F40.01 and Moderate depressed bipolar I disorder F31.[address] 50339- 5154 Nov, PTSD (post-traumatic stress disorder) F43.10 [facility] [id number] [place] [address] [id number] 11 Nov, 2015 Dental examination Z01.20 and Dental caries K02.9 [place] [id number] [place] [address] 76033- 5350 08 Nov, 2015 History of hypertension Z86.79 ; History of hypothyroidism Z86.39 ; History of high cholesterol Z86.39 ; History of COPD Z87.09 and Overactive bladder N32.81 [place] [id number] [place] [address] 33739- 4275 Nov, Bipolar 2 disorder F31.81 and PTSD (post-traumatic stress disorder) F43.10 [place] [id number] [place] [address] 98301- 4779 Nov, PTSD (post-traumatic stress disorder) F43.10 ; Panic disorder with agoraphobia F40.01 ; Epilepsy G40.909 and Moderate depressed bipolar I disorder F31.32 [place] [address] [address]- 9460 Nov, [facility] [id number] [place] [address] 23806- 2327 Nov, [place] [place] [id number] [place] [address] 42182- 6740 Oct, [place] [id number] [place] [address] 82031- 2721 Oct, Generalized anxiety disorder F41.1 ; Major depression, recurrent F33.9 and PTSD (post-traumatic stress disorder) F43.10 [place] [id number] [place] [address] 70320- 3998 Oct, Elevated fasting glucose R73.01 [place] [id number] [place] [address] 14779- 1897 Oct, Elevated fasting glucose R73.01 [facility] [place] [id number] [place] [address] 41917- 8942 Oct, History of COPD Z87.09 [place] [id number] [place] [address] 31741- 3445 Oct, General medical exam Z00.00 ; History of hypertension Z86.79 ; History of hypothyroidism Z86.39 ; History of hepatitis Z86.19 ; History of high cholesterol Z86.39 and History of seizures Z87.898 [address] [place] [address] 27197- 5770 Oct, General medical exam Z00.00 ; History of hypertension Z86.79 ; History of hypothyroidism Z86.39 ; Bipolar 2 disorder F31.81 ; PTSD ( post-traumatic stress disorder) F43.10 ; History of hepatitis Z86.19 ; History of high cholesterol Z86.39 ; History of anxiety Z86.59 ; History of seizures Z87.898 ; History of [place] (myocardial infarction) I25.2 and History of COPD Z87.09 [address] [id number] [address]- 1874 Oct, Generalized anxiety disorder F41.1 ; Depression F32.9 and PTSD (post-traumatic stress disorder) F43.10 [facility] [address] [address]- 5086 Jan, [facility] [address] [place] [address]- 3757 Jan, [facility] [address] [place] [address]- 2791 Jun, [facility] [address] [place] [id number] Jun, [facility] [address] [place] [address]- 2753 May, [facility] [address] [place] [address]- 2029 May, [facility] [address] [place] [id number] May, [facility] [id number] [address]- 4651 May, [facility] [address] [place] [id number] May, [facility] [id number] [address]- 4126 May, IMMUNIZATIONS No Known Immunizations SOCIAL HISTORY Never Assessed REASON FOR VISIT f/u (Cath done 05/2016) [facility] 2010 PLAN OF CARE Activity Details Follow Up [address] Leblanc office Reason: VITAL SIGNS Height 62 in 2018-02-10 Weight 165 lbs 2018-02-10 Heart Rate 64 bpm 2018-02-10 Respiratory Rate 18 2018-02-10 Oximetry 98 % 2018-02-10 BMI 30.18 kg/m2 2018-02-10 Blood pressure systolic 124 mmHg 2018-02-10 Blood pressure diastolic 76 mmHg 2018-02-10 MEDICATIONS Medication Instructions Dosage Frequency Start Date End Date Duration Status Montelukast Sodium 10 mg Orally Once a day 1 tablet 24h Oct, 30 days Active Blood Glucose Monitor 1 glucometer test blood sugar Apr, Active Ditropan XL 10 mg Orally Once a day 1 tablet 24h 10 Jan, 2018 Jun, 30 day(s) Active Aspirin 81 MG Orally Once a day 1 tablet 24h May, 30 day(s) Active Atenolol 50 mg Orally Once a day 1 tablet 24h 30 Active Cali Contour Next Test - In Vitro 3 times a day as directed 8h March, Active Blood Glucose Monitor System w/Device DX- E11.9 Test fasting and 2 hours after meal test 3 times per day Dec, Active Ventolin HFA 108 (90 Base) MCG/ACT Inhalation every 6 hrs 2 puffs as needed 6h Active Nebulizer 1 as directed Apr, Active Clindamycin HCl 300 MG Orally every 6 hrs 1 capsule 6h Jan,Jan 10 days Active Levothyroxine Sodium 150 MCG Orally Once a day 1 tablet 24h Oct, Active Lipitor 40 mg Orally Once a day 1 tablet 24h Active Xyzal 5 MG Orally Once a day 1 tablet in the evening 24h 30 Active NovoLog 100 UNIT/ML Subcutaneous 3 times a day Inject 10 units 8h Dec, Active Blood Glucose Test Strip And lancets. DX E11.9 Test fasting and 2 hours after meal test 3 times per day Dec, Active Protonix 40 MG Orally Once a day 1 tablet 24h Jan, 30 day(s) Active Somerset 10-325 MG Orally 3 times a day 1 tablet as needed 8h Jan, 28 days Active Microlet Lancets - as directed 8h March, Active Insulin Syringe 31G X 5/16 subcutaneously 4 times a day Inject insulin 4 times daily as prescribed 6h Oct, Active Albuterol Sulfate 1.25 MG/3ML Inhalation 4 times a day 3 ml as needed 6h Apr, Active Levemir 100 UNIT/ML Subcutaneous 2 times a day Inject 60 units 12h Dec, Active Carafate 1 GM Orally Twice a day 1 tablet at bedtime on an empty stomach before meals 12h Jan, March, 30 day(s) Active Xanax 2 MG Orally 3 times a day 1 tablet 8h Active Symbicort 160-4.5 MCG/ACT Inhalation Twice a day- rinse mouth and spit after use 2 puffs every day Apr, Active RESULTS Name Result Date Reference Range Echo 2D 2018-03-04 Lexiscan Stress Nuclear Test 2018-02-23 PROCEDURES No Known procedures INSTRUCTIONS MEDICATIONS ADMINISTERED No Known Medications MEDICAL (GENERAL) HISTORY Type Description Date Medical History Hypothyroidism Medical History High cholesterol Medical History Hypertension Medical History Brain seizure Medical History Asthma Medical History COPD Medical History Hep C -2005 Medical History [place] x 2 last in [...]
--- OUTSIDE RECORDS SUMMARY | 2019-01-26 08:14 | XMS REPORT ---
Author Author GEARRDO KISER [facility] Address [address] [place] [address] Care Team Providers Care Flight Steward Name Role Phone MARGI GERARDO Unavailable PROBLEMS Type Condition ICD9-CM Code BCA68-EW Code Onset Dates Condition Status SNOMED Code Problem OAB (overactive bladder) N32.81 Active 200533988 Problem Epilepsy G40.909 Active 83021118 Problem Cervicalgia M54.2 Active 27444259 Problem Other chronic pain G89.29 Active 71797013 Problem Tobacco abuse Z72.0 Active 01622041 Problem Lumbago M54.5 Active 626545686 Problem Hepatitis C B19.20 Active 77463920 Problem COPD (chronic obstructive pulmonary disease) J44.9 Active 65960667 Problem Diabetes E11.9 Active 71693080 Problem Bipolar I disorder with duy F31.10 Active 21426887 Problem Type 2 diabetes mellitus without complications E11.9 Active 660126774 Problem Stress incontinence of urine N39.3 Active 53786711 Problem Bilateral claudication of lower limb I73.9 Active 285911124 Problem Seasonal allergic rhinitis due to other allergic trigger J30.89 Active 183185739 Problem Hyperlipidemia, unspecified hyperlipidemia type E78.5 Active 99377529 Problem Hypertension, unspecified type I10 Active 10785864 Problem Chronic tension-type headache, not intractable G44.229 Active 894269223 Problem Controlled type 2 diabetes mellitus without complication, without long -term current use of insulin E11.9 Active 051920105 Problem Type 2 diabetes mellitus with hyperglycemia E11.65 Active 591738842 Problem Chronic post-traumatic stress disorder (PTSD) F43.12 Active 409706124 Problem History of hypothyroidism Z86.39 Active 954590732 Problem Hypoglycemia E16.2 Active 254763426 Problem El's esophageal ulceration K22.10 Active 936531928 Problem Bipolar affective disorder, currently depressed, mild F31.31 Active 907827918 Problem Irritable bowel syndrome with diarrhea K58.0 Active 567096533 Problem Stress incontinence N39.3 Active 19450623 Problem History of hypertension Z86.79 Active 188615151 Problem Uncontrolled type 2 diabetes mellitus without complication, without long-term current use of insulin E11.65 Active 448262601 Problem Panic disorder with agoraphobia F40.01 Active 81675740 Problem Type 2 diabetes mellitus with hyperglycemia E11.65 Active 490464331 Problem History of seizures Z87.898 Active 187136192 Problem FPC current use of insulin Z79.4 Active 120738784 Problem History of SC (myocardial infarction) I25.2 Active 377247383 Problem Mood disorder F39 Active 93726645 Problem Bipolar 2 disorder F31.81 Active 19441903 Problem Gastritis and duodenitis K29.90 Active 379056689 Problem History of high cholesterol Z86.39 Active 619073740 Problem Bipolar I disorder with mood-congruent psychotic features F31.9 Active 065190306 Problem Hypertension, benign I10 Active 78207398 Problem Primary insomnia F51.01 Active 5094088 ALLERGIES No Information ENCOUNTERS Encounter Location Date Diagnosis [facility] [id number] [place] [address] 04526- 6156 Jun, [facility] [address] 8[address]78- 3413 Jun, [facility] [id number] [place] [address] [id number] May, [facility] [id number] [place] [address] 40887- 4263 May, [facility] [id number] [place] [address] 24303- 5224 May, [facility] [id number] [place] [address] 05889- 2680 May, [facility] [address] 94192- 1890 May, [facility] [id number] [place] [address] 85776- 5432 May, [facility] [address] [place] [address] 6401 May, [facility] [id number] [place] [address] 75951- 2803 May, Lumbago M54.5 [facility] [id number] [place] [address] 44903- 9188 May, [facility] [address] 43042- 5024 Apr, Abnormal CT of the chest R93.8 [facility] [id number] [place] [address] 12336- 0199 Apr, Bipolar 2 disorder F31.81 ; Chronic post-traumatic stress disorder (PTSD) F43.12 and Panic disorder with agoraphobia F40.01 [facility] [id number] [place] [address] 27298- [address] Apr, [address] of the chest R93.8 [facility] [id number] [place] [address] 44057- [address] Apr, [address] of the chest R93.8 [facility] [id number] [place] [address] 27212- 0529 Apr, [facility] [id number] [place] [address] 08234- 1466 Apr, Type 2 diabetes mellitus with hyperglycemia E11.65 [facility] [id number] [place] [address] 82157- 0993 Apr, Controlled type 2 diabetes mellitus without complication, without long-term current use of insulin E11.9 ; Watery eyes H04.203 ; Low back pain M54.5 ; Other chronic pain G89.29 ; Chronic tension-type headache, not intractable G44.229 ; Uncontrolled type 2 diabetes mellitus without complication , without long-term current use of insulin E11.65 and Bronchitis J40 [facility] [id number] [place] [address] 64391- 5892 Apr, [facility] [address] [address] 9377 Apr, Lumbago M54.5 [facility] [id number] [place] [address] 98969- 3539 March, [facility] [id number] [place] [address] 03447 -9300 March, Cough R05 ; Pneumonia due to infectious organism, unspecified laterality, unspecified part of lung J18.9 and Non-intractable vomiting with nausea, unspecified vomiting type R11.2 [facility] [id number] [place] [address] 82998- 0723 March, Bronchitis J40 [facility] [id number] [place] [address] 23195- 6654 March, [facility] [id number] [place] [address] 13447- 0928 March, El's esophageal ulceration K22.10 and Type 2 diabetes mellitus with hyperglycemia E11.65 [facility] [id number] [place] [address] 94291- 0247 March, Panic disorder with agoraphobia F40.01 ; Chronic post- traumatic stress disorder (PTSD) F43.12 and Bipolar 2 disorder F31.81 [facility] [id number] [place] [address] 52122- 6689 March, Type 2 diabetes mellitus with hyperglycemia E11.65 [facility] [address] [place] [address] 13037- 4663 March, [facility] [address] [place] [address] 09108- 2968 March, Lumbago M54.5 [facility] [id number] [place] [address] 69806- 5135 March, [facility] [id number] [place] [address] 78512- 6613 March, Irritable bowel syndrome with diarrhea K58.0 ; Primary insomnia F51.01 ; Type 2 diabetes mellitus with hyperglycemia E11.65 and FPC current use of insulin Z79.4 [facility] [id number] [place] [address] 46043- 4824 March, [facility] [id number] [place] [address] 79487- 9178 Jan, [facility] [id number] [place] [address] 24232- 6824 Jan, [facility] [id number] [place] [address] 61721- 3655 Jan, [facility] [id number] [place] [address] 81031- 6254 Jan, [facility] [id number] [place] [address] 45218- 2164 Jan, Dizziness R42 [facility] [id number] [place] [address] 80116- 8397 Jan, Bipolar affective disorder, currently depressed, mild F31.31 ; Panic disorder with agoraphobia F40.01 and Chronic post-traumatic stress disorder (PTSD) F43.12 [facility] [id number] [place] [address] 98466- 0243 Jan, Dizziness R42 [facility] [id number] [place] [address] 52103- 1358 Jan, Chest pain, unspecified type R07.9 ; Exertional dyspnea R06.09 ; Hypertension, unspecified type I10 and Hyperlipidemia, unspecified hyperlipidemia type E78.5 [facility] [id number] [place] [address] 29387- 6145 Jan, [facility] [id number] [place] [address] 01155- 1546 Jan, Lumbago M54.5 [facility] [id number] [place] [address] 74614- 7441 Jan, El's esophageal ulceration K22.10 ; Blister (nonthermal ) of oral cavity, initial encounter S00.522A ; Local infection of the skin and subcutaneous tissue, unspecified L08.9 ; Type 2 diabetes mellitus with hyperglycemia E11.65 ; FPC current use of insulin Z79.4 and Stress incontinence N39.3 [facility] [address] 24622- 9145 27 Dec, 2017 [facility] [address] 61430- 6844 27 Dec, 2017 [facility] [address] 06008- 3992 19 Dec, 2017 [facility] [address] [id number] 16 Dec, 2017 Dental examination Z01.20 [facility] [address] 87080- 0108 15 Dec, 2017 Acute pain of right knee M25.561 [facility] [address] 39827- 9767 14 Dec, 2017 [facility] [address] 43688- 6332 14 Dec, 2017 [facility] [id number] [place] [address] 57338- 1318 14 Dec, 2017 Lumbago M54.5 ; Acute pain of right knee M25.561 and Seasonal allergic rhinitis due to other allergic trigger J30.89 [facility] [id number] [place] [address] 78042- 1601 12 Dec, 2017 Type 2 diabetes mellitus with hyperglycemia E11.65 [facility] [address] 79820- 5263 08 Dec, 2017 [facility] [id number] [place] [address] 16028- 6603 08 Dec, 2017 [facility] [address] 26292- 5579 Dec, [facility] [id number] [place] [address] 92378- 7051 Dec, [facility] [id number] [place] [address] 48237- 2180 Dec, Chronic post-traumatic stress disorder (PTSD) F43.12 and Panic disorder with agoraphobia F40.01 [facility] [address] [place] [address] 70336- 8158 Dec, Low back pain M54.5 [facility] [id number] [place] [address] 16624- 6103 Dec, Type 2 diabetes mellitus with hyperglycemia E11.65 ; FPC current use of insulin Z79.4 ; Low back pain M54.5 ; Other chronic pain G89.29 and Encounter for therapeutic drug level monitoring Z51.81 [facility] [address] [place] [address] 21437- 8935 Dec, Coughing R05 [facility] [id number] [place] [address] 37706- 0369 Dec, [facility] [id number] [place] [address] [id number] Dec, 2017 Dental examination Z01.20 [facility] [address] [place] [address] 43227- 9573 Nov, Type 2 diabetes mellitus without complications E11.9 and Encounter for therapeutic drug level monitoring Z51.81 [facility] [address] [address]- 1408 Nov, [facility] [id number] [place] [address] 71689- 0174 Oct, Type 2 diabetes mellitus without complications E11.9 [facility] [address] [place] [address] 63854- 4532 Oct, Type 2 diabetes mellitus with hyperglycemia E11.65 [facility] [address] [address]- 7663 Aug, Type 2 diabetes mellitus without complications E11.9 [facility] [address] [address]- 2718 Aug, Type 2 diabetes mellitus without complications E11.9 ; Hypoglycemia E16.2 ; Lumbago M54.5 ; Stress incontinence of urine N39.3 and History of SC (myocardial infarction) I25.2 [facility] [address] [address]- 0601 Jun, [facility] [id number] [place] [address] 03495- 0089 May, [facility] [id number] [place] [address] 34109- 0476 Apr, Panic disorder with agoraphobia F40.01 [facility] [address] [address]- 4439 Apr, Panic disorder with agoraphobia F40.01 [facility] [address] [address]- 0023 Apr, [facility] [address] [address]- 5180 March, Other chronic pain G89.29 [facility] [address] [address]- 1529 March, [facility] [address] [address]- 8062 March, [facility] [address] [address]- 8160 March, [facility] [address] [address]- 8654 March, [facility] [address] [address]- 9198 March, Type 2 diabetes mellitus without complications E11.9 [facility] [address] [address]- 6753 16 Mar, 2017 Diarrhea, unspecified type R19.7 [facility] [id number] [place] [address] 65663- 9196 March, Bipolar 2 disorder F31.81 ; Chronic post-traumatic stress disorder (PTSD) F43.12 and Type 2 diabetes mellitus with hyperglycemia E11.65 [facility] [id number] [place] [address] 87479- 2732 March, [facility] [id number] [place] [address] 88461- 9716 March, [facility] [id number] [place] [address] 65192- 1412 March, Hypertension, benign I10 ; Type 2 diabetes mellitus with hyperglycemia E11.65 ; Hepatitis C B19.20 ; Gastritis and duodenitis K29.90 and Dysuria R30.0 [facility] [address] [place] [address] 18478- 3846 March, Hypertension, benign I10 ; Type 2 diabetes mellitus with hyperglycemia E11.65 ; Hepatitis C B19.20 ; Gastritis and duodenitis K29.90 and Dysuria R30.0 [facility] [address] [place] [address] 20273- 9685 March, Panic disorder with agoraphobia F40.01 ; Chronic post- traumatic stress disorder (PTSD) F43.12 ; Epilepsy G40.909 and Bipolar I disorder with mood-congruent psychotic features F31.9 [facility] [address] [address]- 8867 March, [facility] [id number] [place] [address] 80286- 0322 March, Type 2 diabetes mellitus with hyperglycemia E11.65 [facility] [id number] [place] [address] 91328- 4036 Jan, Bipolar I disorder with duy F31.10 [facility] [id number] [place] [address] 42236- 3390 17 Jan, 2017 Bipolar 2 disorder F31.81 ; Chronic post-traumatic stress disorder (PTSD) F43.12 and Type 2 diabetes mellitus with hyperglycemia E11.65 [facility] [id number] [place] [address] 67496- 5139 Jan, [facility] [address] 41087- 5745 Jan, [facility] [id number] [place] [address] 10335- 5975 14 Jan, 2017 Panic disorder with agoraphobia F40.01 [facility] [id number] [place] [address] 18201- 1186 13 Jan, 2017 Panic disorder with agoraphobia F40.01 ; Bipolar I disorder with mood-congruent psychotic features F31.9 ; Chronic post-traumatic stress disorder (PTSD) F43.12 and Epilepsy G40.909 [facility] [id number] [place] [address] 58862- 7413 Jan, [facility] [id number] [place] [address] 61754- 7614 Jan, [facility] [id number] [place] [address] 12434- 9740 Jan, Type 2 diabetes mellitus without complications E11.9 and Hypoglycemia E16.2 [facility] [id number] [place] [address] 09719- 1623 07 Jan, 2017 Type 2 diabetes mellitus without complications E11.9 ; Primary insomnia F51.01 and Hypertension, benign I10 [facility] [id number] [place] [address] 32378- 0075 06 Jan, 2017 [facility] [id number] [place] [address] [id number] Jan, [facility] [address] 04232- 5674 Dec, Type 2 diabetes mellitus with hyperglycemia E11.65 [facility] [address] [place] [address] 74562- 0957 Dec, [facility] [id number] [place] [address] 94323- 6521 Dec, Bipolar 2 disorder F31.81 ; Panic disorder with agoraphobia F40.01 ; Chronic post-traumatic stress disorder (PTSD) F43.12 and Epilepsy G40.909 [facility] [id number] [place] [address] 99479- 7189 Dec, [facility] [id number] [place] [address] 74001- 6692 Dec, [facility] [id number] [place] [address] 66446- 5108 Dec, Bipolar 2 disorder F31.81 ; Panic disorder with agoraphobia F40.01 ; Chronic post-traumatic stress disorder (PTSD) F43.12 and Epilepsy G40.909 [facility] [id number] [place] [address] 37203- 1406 Dec, [facility] [id number] [place] [address] 51267- 4233 Dec, [facility] [id number] [place] [address] 90757- 9738 Dec, [facility] [id number] [place] [address] 21866- 8371 Dec, Type 2 diabetes mellitus with hyperglycemia E11.65 ; 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 and Lumbago M54.5 [facility] [id number] [place] [address] 52250- 4940 Dec, [facility] [id number] [place] [address] 63084- 2570 Dec, [facility] [id number] [place] [address] 52352- 0779 Dec, [facility] [id number] [place] [address] 11657 -2423 Dec, Pain of left leg M79.605 and Pain in right leg M79.604 [facility] [id number] [place] [address] 06459- 4025 Dec, [facility] [address] 93218- 4524 Dec, Type 2 diabetes mellitus with hyperglycemia E11.65 [facility] [address] 58658- 4824 Dec, [facility] [id number] [place] [address] 34869- 6965 Dec, Type 2 diabetes mellitus with hyperglycemia E11.65 ; FPC current use of insulin Z79.4 ; Vagina, candidiasis B37.3 and Other chronic pain G89.29 [facility] [id number] [place] [address] 07956- 2316 Nov, Panic disorder with agoraphobia F40.01 [facility] [address] 63374- 5275 Nov, [facility] [id number] [place] [address] 14512- 0399 Nov, [facility] [address] 06067- 8730 Nov, Hypoglycemia E16.2 [facility] [id number] [place] [address] 39452- 2313 Nov, [facility] [address] 89656- 1190 Nov, [facility] [id number] [place] [address] 18845- 0523 Nov, [facility] [address] [place] [address]- 0543 13 Nov, 2016 Type 2 diabetes mellitus with hyperglycemia E11.65 and FPC current use of insulin Z79.4 [facility] [id number] [place] [address] 02372- 1530 Nov, Panic disorder with agoraphobia F40.01 ; Bipolar 2 disorder F31.81 ; Chronic post-traumatic stress disorder (PTSD) F43.12 and Epilepsy G40.909 [facility] [id number] [place] [address] 13695- 7597 Nov, Panic disorder with agoraphobia F40.01 [facility] [id number] [place] [address] 66055- 0564 Oct, [facility] [id number] [place] [address] 01643- 0578 Oct, [facility] [id number] [place] [address] 01053- 5818 Oct, Bipolar 2 disorder F31.81 ; Panic disorder with agoraphobia F40.01 and Mood disorder F39 [facility] [id number] [place] [address] 23996- 0444 Oct, Diabetes E11.9 ; Type 2 diabetes mellitus with hyperglycemia E11.65 and 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 [facility] [id number] [place] [address] 11540- 6215 Oct, [facility] [id number] [place] [address] 70068- 6635 Sep, [facility] [id number] [place] [address] 44892- 2286 Sep, Bipolar 2 disorder F31.81 and Mood disorder F39 [facility] [id number] [place] [address] 16763- 6710 Sep, [facility] [id number] [place] [address] 36830- 5698 Sep, Uncontrolled type 2 diabetes mellitus without complication, without long-term current use of insulin E11.65 [facility] [id number] [place] [address] 48371- 6706 Sep, [facility] [id number] [place] [address] 30948- 8275 Sep, [facility] [id number] [place] [address] 66510- 2310 Sep, [facility] [id number] [place] [address] 11454- 3339 Sep, [facility] [id number] [place] [address] 79693- 2849 Sep, Bipolar 2 disorder F31.81 ; Chronic post-traumatic stress disorder (PTSD) F43.12 ; Panic disorder with agoraphobia F40.01 and Epilepsy G40.909 [facility] [id number] [place] [address] 25280- 2283 Sep, Bipolar 2 disorder F31.81 ; PTSD (post-traumatic stress disorder) F43.10 and Panic disorder with agoraphobia F40.01 [facility] [id number] [place] [address] 98917- 9867 Sep, [facility] [id number] [place] [address] 54545- 4222 Aug, History of seizures Z87.898 ; Panic disorder with agoraphobia F40.01 and Bipolar 2 disorder F31.81 [facility] [id number] [address] Aug, [facility] [id number] [place] [address] 06224- 0180 17 Aug, 2016 [facility] [id number] [place] [address] 89613- 6288 Aug, [facility] [id number] [place] [address] 81818- 3428 Aug, [facility] [id number] [place] [address] 77606- 2297 Aug, [facility] [id number] [place] [address] 13938- 3694 Aug, [facility] [id number] [place] [address] 25680- 2498 Aug, Hypoglycemia E16.2 and Bilateral impacted cerumen H61.23 [facility] [id number] [place] [address] 29050- 2193 Aug, [facility] [id number] [place] [address] 09939- 1521 Jul, [facility] [facility] [id number] [place] [address] 64696- 4241 Jul, [facility] [address] 26928- 4477 15 Jul, 2016 Bipolar 2 disorder F31.81 ; Panic disorder with agoraphobia F40.01 ; PTSD (post-traumatic stress disorder) F43.10 and Epilepsy G40.909 [facility] [id number] [place] [address] 17682- 3098 Jul, [facility] [id number] [place] [address] 75784- 6189 09 Jul, 2016 Type 2 diabetes mellitus without complications E11.9 and Coughing R05 [facility] [id number] [place] [address] 49792- 1844 Jul, [facility] [id number] [place] [address] 16489- 2241 Jun, [facility] [id number] [place] [address] 01809- 9436 Jun, Bipolar 2 disorder F31.81 ; PTSD (post-traumatic stress disorder) F43.10 and Panic disorder with agoraphobia F40.01 [facility] [address] [place] [address] Jun, [facility] [id number] [place] [address] 34019- 0483 Jun, [facility] [address] [address] 64[address] Jun, [facility] [facility] [id number] [place] [address] 76534- 6036 Jun, Type 2 diabetes mellitus without complications E11.9 and COPD (chronic obstructive pulmonary disease) J44.9 [facility] [id number] [place] [id number] May, Dental examination Z01.20 and Dental caries K02.9 [facility] [id number] [place] [address] 12677- 3982 May, Bipolar 2 disorder F31.81 ; PTSD (post-traumatic stress disorder) F43.10 and Panic disorder with agoraphobia F40.01 [facility] [id number] [place] [address] 73283- 7539 May, Lumbago with sciatica, right side M54.41 ; Other chronic pain G89.29 and Uncontrolled type 2 diabetes mellitus without complication, without long-term current use of insulin E11.65 [facility] [id number] [place] [address] 93959- 9276 May, Chronic bronchitis, unspecified chronic bronchitis type J42 [facility] [address] [address] 0891 May, [facility] [id number] [place] [address] 71664- 3142 May, [facility] [id number] [place] [address] 20299- 1938 May, Chest pain, unspecified type R07.9 ; Tobacco use Z72.0 ; Type 2 diabetes mellitus without complications E11.9 ; Essential hypertension I10 ; Hyperlipidemia, unspecified hyperlipidemia type E78.5 ; Obesity (BMI 30- 39.9) E66.9 ; History of hypothyroidism Z86.39 ; Chronic obstructive pulmonary disease, unspecified COPD type J44.9 ; Anxiety F41.9 ; Bilateral claudication of lower limb I73.9 and Bipolar 2 disorder F31.81 [facility] [id number] [place] [address] 73211- 1700 May, Bipolar 2 disorder F31.81 ; Panic disorder with agoraphobia F40.01 and Tobacco abuse Z72.0 [facility] [address] 49820- 9630 Apr, [facility] [address] 11797- 5982 Apr, [facility] [address] 32959- 6113 Apr, [facility] [facility] [address] 70240- 9190 Apr, Bipolar 2 disorder F31.81 ; Panic disorder with agoraphobia F40.01 and PTSD (post-traumatic stress disorder) F43.10 [facility] [address] 87029- 7721 Apr, Chronic bronchitis, unspecified chronic bronchitis type J42 ; Cervical neuritis M54.12 and Thoracic neuritis M54.14 [facility] [id number] [place] [address] 76465- 4915 Apr, [facility] [id number] [place] [address] 42319- 8807 Apr, Cervicalgia M54.2 [facility] [address] 84819- 5117 Apr, Bipolar 2 disorder F31.81 ; Panic disorder with agoraphobia F40.01 and PTSD (post-traumatic stress disorder) F43.10 [facility] [id number] [place] [address] 74324 -7537 Apr, [facility] [address] [address] Apr, Cough R05 and Tobacco dependence F17.200 [facility] [id number] [place] [address] 06026- 5709 Apr, [facility] [id number] [place] [address] 53590- 1011 Apr, [facility] [id number] [place] [address] 50765- 6994 March, Bipolar 2 disorder F31.81 ; Panic disorder with agoraphobia F40.01 and Generalized anxiety disorder F41.1 [facility] [id number] [place] [address] 62219- 2267 March, Closed displaced fracture of fifth metatarsal bone of right foot with routine healing, subsequent encounter S92.351D [facility] [id number] [place] [address] 27250- 0920 March, Bronchitis J40 [facility] [id number] [place] [address] 93030- 5575 March, [facility] [id number] [place] [address] 57497- 1099 March, [facility] [id number] [place] [address] 88240- 2661 March, Foot pain, right M79.671 ; Cervicalgia M54.2 and Controlled type 2 diabetes mellitus without complication, unspecified custodial insulin use status E11.9 [facility] [address] [place] [address] 04048- 4536 March, Fracture of fifth metatarsal bone of right foot S92.351A [facility] [id number] [place] [address] 71479- 8711 March, [facility] [id number] [place] [address] 74355- 9929 Jan, Fracture of fifth metatarsal bone of right foot S92.351A [facility] [address] [address] 9511 Jan, Bipolar 2 disorder F31.81 ; PTSD (post-traumatic stress disorder) F43.10 ; Panic disorder with agoraphobia F40.01 and Epilepsy G40.909 [facility] [id number] [place] [address] 51157- 8136 Jan, History of SC (myocardial infarction) I25.2 and History of high cholesterol Z86.39 [facility] [id number] [place] [address] 99667- 7367 Jan, Bipolar 2 disorder F31.81 ; Panic disorder with agoraphobia F40.01 ; Tobacco abuse Z72.0 and PTSD (post-traumatic stress disorder) F43.10 [facility] [id number] [place] [address] 06197- 6883 Jan, Fracture of fifth metatarsal bone of right foot S92.351A [facility] [id number] [place] [address] 04480- 9296 Jan, [facility] [id number] [place] [address] 60808- 3712 Jan, History of high cholesterol Z86.39 [facility] [facility] [address] [address]- 9658 Jan, History of SC (myocardial infarction) I25.2 [place] [address] [place] [address] 21065- 2864 Jan, [facility] [id number] [place] [address] 51472- 5319 Dec, Back pain M54.9 ; Diabetes E11.9 ; Right knee pain M25.561 and Chest pain R07.9 [facility] [id number] [place] [address] 15830- 8339 Dec, [facility] [id number] [place] [address] 86149- 4083 Dec, [facility] [id number] [place] [address] 25576- 5120 Dec, Cervicalgia M54.2 [facility] [id number] [place] [address] 97886- 1407 Dec, Bipolar 2 disorder F31.81 ; PTSD (post-traumatic stress disorder) F43.10 ; Panic disorder with agoraphobia F40.01 and Epilepsy G40.909 [facility] [id number] [place] [address] 94102- 7858 Dec, Bipolar 2 disorder F31.81 ; PTSD (post-traumatic stress disorder) F43.10 and Panic disorder with agoraphobia F40.01 [facility] [id number] [place] [address] 40316- 2038 Dec, Diabetes E11.9 [facility] [id number] [place] [address] 82542- 9421 Dec, [facility] [id number] [place] [address] 05837- 3507 Dec, Other chronic pain G89.29 ; Hepatitis C B19.20 and History of seizures Z87.898 [facility] [id number] [place] [address] 80793- 9657 Dec, [facility] [id number] [place] [address] 71671- 2865 Dec, Bipolar 2 disorder F31.81 and Other chronic pain G89.29 [facility] [id number] [place] [address] 53015- 5048 Dec, Cervicalgia M54.2 and Diabetes E11.9 [facility] [id number] [place] [address] 58217- 3715 Dec, [facility] [address] 41401- 3057 Dec, [facility] [id number] [place] [address] 72660- 0203 Dec, [facility] [address] 82054- 1371 Dec, [facility] [id number] [place] [address] 69267- 7608 Dec, Type 2 diabetes mellitus without complications E11.9 [facility] [id number] [place] [address] 94120- 5118 Dec, [place] [address] 19029- 2872 Dec, History of seizures Z87.898 and Hepatitis C B19.20 [facility] [address] 13870- 1014 Dec, Hepatitis C B19.20 [facility] [id number] [place] [address] 72334- 1274 Dec, [facility] [id number] [place] [address] 23616- 7590 Dec, Cervicalgia M54.2 ; COPD (chronic obstructive pulmonary disease) J44.9 and Hepatitis C B19.20 [facility] [id number] [place] [address] 34673- 7348 Dec, Bipolar 2 disorder F31.81 ; History of hypertension Z86.79 ; History of anxiety Z86.59 ; Panic disorder with agoraphobia F40.01 and Epilepsy G40.909 [facility] [id number] [place] [address] 65825- 5259 Nov, [facility] [id number] [place] [address] 10783- 2026 Nov, [facility] [id number] [place] [address] 97527- 8194 Nov, History of seizures Z87.898 ; OAB (overactive bladder) N32.81 ; Lumbago M54.5 ; Other chronic pain G89.29 ; Cervicalgia M54.2 ; Tobacco abuse Z72.0 ; Tobacco abuse counseling Z71.6 and Impaired fasting glucose R73.01 [facility] [address] [place] [address] 11871- 5179 14 Nov, 2015 Bipolar 2 disorder F31.81 ; PTSD (post-traumatic stress disorder) F43.10 ; History of anxiety Z86.59 ; History of COPD Z87.09 ; Panic disorder with agoraphobia F40.01 and Moderate depressed bipolar I disorder F31.[address] 97459- 3324 Nov, PTSD (post-traumatic stress disorder) F43.10 [facility] [id number] [place] [address] [id number] Nov, Dental examination Z01.20 and Dental caries K02.9 [id number] [place] [address] 55287- 3242 Nov, History of hypertension Z86.79 ; History of hypothyroidism Z86.39 ; History of high cholesterol Z86.39 ; History of COPD Z87.09 and Overactive bladder N32.81 [facility] [id number] [place] [address] 09518- 4731 Nov, Bipolar 2 disorder F31.81 and PTSD (post-traumatic stress disorder) F43.10 [facility] [id number] [place] [address] 45594- 9637 Nov, PTSD (post-traumatic stress disorder) F43.10 ; Panic disorder with agoraphobia F40.01 ; Epilepsy G40.909 and Moderate depressed bipolar I disorder F31.32 [facility] [id number] [place] [address] 81583- 8178 Nov, [address] 14312- 5971 Nov, [address] [id number] [place] [address] 37124- 7346 Oct, [address] [id number]- 5783 Oct, Generalized anxiety disorder F41.1 ; Major depression, recurrent F33.9 and PTSD (post-traumatic stress disorder) F43.[address] 62723- 8735 Oct, Elevated fasting glucose R73.[address] 90352- 0211 Oct, Elevated fasting glucose R73.[address] 65619- 1037 Oct, History of COPD Z87.[address] 55211- 0946 Oct, General medical exam Z00.00 ; History of hypertension Z86.79 ; History of hypothyroidism Z86.39 ; History of hepatitis Z86.19 ; History of high cholesterol Z86.39 and History of seizures Z87.[address] 46091- 3687 Oct, General medical exam Z00.00 ; History of hypertension Z86.79 ; History of hypothyroidism Z86.39 ; Bipolar 2 disorder F31.81 ; PTSD ( post-traumatic stress disorder) F43.10 ; History of hepatitis Z86.19 ; History of high cholesterol Z86.39 ; History of anxiety Z86.59 ; History of seizures Z87.898 ; History of SC (myocardial infarction) I25.2 and History of COPD Z87.[address] 19049- 6900 Oct, Generalized anxiety disorder F41.1 ; Depression F32.9 and PTSD (post-traumatic stress disorder) F43.10 [place] [id number]- 2546 Jan, [facility] [address] [facility] [id number] [address]- 2546 Jan, [facility] [address] [facility] [id number], [place] [address]- 2546 Jun, [facility] [address] [place] [id number] Jun, [facility] [address] [facility] [id number], [place] [address]- 2546 May, [facility] [address] [facility] [id number], [place] [address]- 2546 May, [address] [place] [id number] May, [facility] [address] [facility] [id number] [address]- 2546 May, [address] [place] [id number] May, [facility] [address] [facility] [id number], [place] [address]- 2546 May, IMMUNIZATIONS No Known Immunizations SOCIAL HISTORY Never Assessed REASON FOR VISIT Controlled Med Refill 02/10 PLAN OF CARE VITAL SIGNS MEDICATIONS Medication Instructions Dosage Frequency Start Date End Date Duration Status [place] 10-325 MG Orally 3 times a day 1 tablet as needed 8h Jan, 28 days Active RESULTS No Results PROCEDURES [...]
--- OUTSIDE RECORDS SUMMARY | 2019-01-26 08:15 | XMS REPORT ---
Author Author GERARDO KISER [facility] Address [address] [place] [address] Care Team Providers Care Certified Hyperbaric Technologist Name Role Phone MARGI GERARDO Unavailable PROBLEMS Type Condition ICD9-CM Code SEU55-QP Code Onset Dates Condition Status SNOMED Code Problem OAB (overactive bladder) N32.81 Active 801021360 Problem Epilepsy G40.909 Active 79858832 Problem Cervicalgia M54.2 Active 23236414 Problem Other chronic pain G89.29 Active 12633646 Problem Tobacco abuse Z72.0 Active 56915339 Problem Lumbago M54.5 Active 004505470 Problem Hepatitis C B19.20 Active 50511246 Problem COPD (chronic obstructive pulmonary disease) J44.9 Active 05650323 Problem Diabetes E11.9 Active 82517814 Problem Bipolar I disorder with duy F31.10 Active 64593225 Problem Type 2 diabetes mellitus without complications E11.9 Active 133609779 Problem Stress incontinence of urine N39.3 Active 61822778 Problem Bilateral claudication of lower limb I73.9 Active 940819208 Problem Seasonal allergic rhinitis due to other allergic trigger J30.89 Active 127936688 Problem Hyperlipidemia, unspecified hyperlipidemia type E78.5 Active 32601170 Problem Hypertension, unspecified type I10 Active 41537154 Problem Chronic tension-type headache, not intractable G44.229 Active 125910397 Problem Controlled type 2 diabetes mellitus without complication, without long -term current use of insulin E11.9 Active 487323862 Problem Type 2 diabetes mellitus with hyperglycemia E11.65 Active 822394822 Problem Chronic post-traumatic stress disorder (PTSD) F43.12 Active 680017114 Problem History of hypothyroidism Z86.39 Active 139898522 Problem Hypoglycemia E16.2 Active 534763635 Problem El's esophageal ulceration K22.10 Active 543461117 Problem Bipolar affective disorder, currently depressed, mild F31.31 Active 925503547 Problem Irritable bowel syndrome with diarrhea K58.0 Active 731952093 Problem Stress incontinence N39.3 Active 76766118 Problem History of hypertension Z86.79 Active 947458619 Problem Uncontrolled type 2 diabetes mellitus without complication, without long-term current use of insulin E11.65 Active 890972013 Problem Panic disorder with agoraphobia F40.01 Active 85858178 Problem Type 2 diabetes mellitus with hyperglycemia E11.65 Active 050138237 Problem History of seizures Z87.898 Active 649073931 Problem [facility] current use of insulin Z79.4 Active 279310627 Problem History of CT (myocardial infarction) I25.2 Active 387375954 Problem Mood disorder F39 Active 38280885 Problem Bipolar 2 disorder F31.81 Active 40524026 Problem Gastritis and duodenitis K29.90 Active 478806326 Problem History of high cholesterol Z86.39 Active 692302021 Problem Bipolar I disorder with mood-congruent psychotic features F31.9 Active 818715032 Problem Hypertension, benign I10 Active 47916798 Problem Primary insomnia F51.01 Active 5750217 ALLERGIES No Information ENCOUNTERS Encounter Location Date Diagnosis [facility] [id number] [place] [address] 88809- 1824 Jun, [facility] [address] 09539- 9667 Jun, [facility] [id number] [place] [address] [id number] May, [facility] [id number] [place] [address] 69025- 1448 May, [facility] [id number] [place] [address] 42712- 5062 May, [facility] [id number] [place] [address] 44968- 9188 May, [facility] [address] 27284- 2502 May, [facility] [id number] [place] [address] 08614- 1690 May, [facility] [address] [place] [address] 3349 May, [facility] [id number] [place] [address] 52405- 0409 May, Lumbago M54.5 [facility] [id number] [place] [address] 76849- 8891 May, [facility] [address] 00026- 8901 Apr, Abnormal CT of the chest R93.8 [facility] [id number] [place] [address] 23150- 1256 Apr, Bipolar 2 disorder F31.81 ; Chronic post-traumatic stress disorder (PTSD) F43.12 and Panic disorder with agoraphobia F40.01 [facility] [id number] [place] [address] 13257- [address] Apr, [address] of the chest R93.8 [facility] [id number] [place] [address] 87722- [address] Apr, [address] of the chest R93.8 [facility] [id number] [place] [address] 13375- 3517 Apr, [facility] [id number] [place] [address] 20932- 0374 Apr, Type 2 diabetes mellitus with hyperglycemia E11.65 [facility] [id number] [place] [address] 10969- 8583 Apr, Controlled type 2 diabetes mellitus without complication, without long-term current use of insulin E11.9 ; Watery eyes H04.203 ; Low back pain M54.5 ; Other chronic pain G89.29 ; Chronic tension-type headache, not intractable G44.229 ; Uncontrolled type 2 diabetes mellitus without complication , without long-term current use of insulin E11.65 and Bronchitis J40 [facility] [id number] [place] [address] 56537- 5249 Apr, [facility] [id number] [address] 6635 Apr, Lumbago M54.5 [facility] [id number] [place] [address] 56071- 0771 March, [facility] [id number] [place] [address] 52921 -1211 March, Cough R05 ; Pneumonia due to infectious organism, unspecified laterality, unspecified part of lung J18.9 and Non-intractable vomiting with nausea, unspecified vomiting type R11.2 [facility] [id number] [place] [address] 28453- 7418 March, Bronchitis J40 [facility] [id number] [place] [address] 89029- 4701 March, [facility] [id number] [place] [address] 32332- 7416 March, El's esophageal ulceration K22.10 and Type 2 diabetes mellitus with hyperglycemia E11.65 [facility] [id number] [place] [address] 01646- 5912 March, Panic disorder with agoraphobia F40.01 ; Chronic post- traumatic stress disorder (PTSD) F43.12 and Bipolar 2 disorder F31.81 [facility] [id number] [place] [address] 65448- 4749 March, Type 2 diabetes mellitus with hyperglycemia E11.65 [facility] [id number] [place] [address] 98985- 8455 March, [facility] [id number] [place] [address] 96603- 3259 March, Lumbago M54.5 [facility] [id number] [place] [address] 85689- 6636 March, [facility] [id number] [place] [address] 60167- 4511 March, Irritable bowel syndrome with diarrhea K58.0 ; Primary insomnia F51.01 ; Type 2 diabetes mellitus with hyperglycemia E11.65 and [facility] current use of insulin Z79.4 [facility] [id number] [place] [address] 69296- 4014 March, [facility] [id number] [place] [address] 45206- 4746 Jan, [facility] [id number] [place] [address] 83833- 9066 Jan, [facility] [id number] [place] [address] 95314- 8862 Jan, [facility] [id number] [place] [address] 79099- 1484 Jan, [facility] [id number] [place] [address] 12599- 3320 Jan, Dizziness R42 [facility] [id number] [place] [address] 14878- 5007 Jan, Bipolar affective disorder, currently depressed, mild F31.31 ; Panic disorder with agoraphobia F40.01 and Chronic post-traumatic stress disorder (PTSD) F43.12 [facility] [id number] [place] [address] 60337- 9420 Jan, Dizziness R42 [facility] [id number] [place] [address] 28190- 7276 Jan, Chest pain, unspecified type R07.9 ; Exertional dyspnea R06.09 ; Hypertension, unspecified type I10 and Hyperlipidemia, unspecified hyperlipidemia type E78.5 [facility] [id number] [place] [address] 79169- 1974 Jan, [facility] [id number] [place] [address] 89339- 5250 Jan, Lumbago M54.5 [facility] [id number] [place] [address] 02677- 8920 Jan, El's esophageal ulceration K22.10 ; Blister (nonthermal ) of oral cavity, initial encounter S00.522A ; Local infection of the skin and subcutaneous tissue, unspecified L08.9 ; Type 2 diabetes mellitus with hyperglycemia E11.65 ; [facility] current use of insulin Z79.4 and Stress incontinence N39.3 [facility] [address] 60179- 2088 27 Dec, 2017 [facility] [address] 18421- 5257 27 Dec, 2017 [facility] [address] 05214- 6759 19 Dec, 2017 [facility] [address] [id number] 16 Dec, 2017 Dental examination Z01.20 [facility] [address] 80829- 2165 15 Dec, 2017 Acute pain of right knee M25.561 [facility] [address] 64933- 8407 14 Dec, 2017 [facility] [address] 02374- 1825 14 Dec, 2017 [facility] [id number] [place] [address] 43908- 6269 14 Dec, 2017 Lumbago M54.5 ; Acute pain of right knee M25.561 and Seasonal allergic rhinitis due to other allergic trigger J30.89 [facility] [id number] [place] [address] 36015- 2918 12 Dec, 2017 Type 2 diabetes mellitus with hyperglycemia E11.65 [facility] [address] 93386- 1472 08 Dec, 2017 [facility] [id number] [place] [address] 83011- 9031 08 Dec, 2017 [facility] [address] 82789- 4804 Dec, [facility] [id number] [place] [address] 14480- 7430 Dec, [facility] [id number] [place] [address] 02328- 5728 Dec, Chronic post-traumatic stress disorder (PTSD) F43.12 and Panic disorder with agoraphobia F40.01 [facility] [id number] [place] [address] 44051- 0110 Dec, Low back pain M54.5 [facility] [id number] [place] [address] 82770- 3987 Dec, Type 2 diabetes mellitus with hyperglycemia E11.65 ; [facility] current use of insulin Z79.4 ; Low back pain M54.5 ; Other chronic pain G89.29 and Encounter for therapeutic drug level monitoring Z51.81 [facility] [id number] [place] [address] 56278- 7984 Dec, Coughing R05 [facility] [id number] [place] [address] 70794- 2053 Dec, [facility] [id number] [place] [address] [id number] 07 Dec, 2017 Dental examination Z01.20 [facility] [id number] [place] [address] 73351- 9975 Nov, Type 2 diabetes mellitus without complications E11.9 and Encounter for therapeutic drug level monitoring Z51.81 [facility] [address] [address]- 8846 Nov, [facility] [id number] [place] [address] 33768- 8042 Oct, Type 2 diabetes mellitus without complications E11.9 [facility] [id number] [place] [address] 49661- 7812 Oct, Type 2 diabetes mellitus with hyperglycemia E11.65 [facility] [id number] [address]- 2219 Aug, Type 2 diabetes mellitus without complications E11.9 [facility] [id number] [address]- 3381 Aug, Type 2 diabetes mellitus without complications E11.9 ; Hypoglycemia E16.2 ; Lumbago M54.5 ; Stress incontinence of urine N39.[address] (myocardial infarction) I25.2 [facility] [address] [address]- 5948 Jun, [facility] [id number] [place] [address] 44597- 3053 May, [facility] [id number] [place] [address] 60554- 4057 Apr, Panic disorder with agoraphobia F40.01 [facility] [id number] [address]- 6086 Apr, Panic disorder with agoraphobia F40.01 [facility] [address] [address]- 8323 Apr, [facility] [id number] [address]- 1788 March, Other chronic pain G89.29 [facility] [address] [address]- 3621 March, [facility] [address] [address]- 9632 March, [facility] [id number] [address]- 8967 March, [facility] [id number] [address]- 5906 March, [facility] [id number] [address]- 5551 March, Type 2 diabetes mellitus without complications E11.9 [facility] [address] [address]- 2423 16 Mar, 2017 Diarrhea, unspecified type R19.7 [facility] [id number] [place] [address] 03537- 4130 March, Bipolar 2 disorder F31.81 ; Chronic post-traumatic stress disorder (PTSD) F43.12 and Type 2 diabetes mellitus with hyperglycemia E11.65 [facility] [id number] [place] [address] 36277- 2847 March, [facility] [id number] [place] [address] 25529- 6508 March, [facility] [id number] [place] [address] 93204- 1264 March, Hypertension, benign I10 ; Type 2 diabetes mellitus with hyperglycemia E11.65 ; Hepatitis C B19.20 ; Gastritis and duodenitis K29.90 and Dysuria R30.0 [facility] [id number] [place] [address] 16181- 3199 March, Hypertension, benign I10 ; Type 2 diabetes mellitus with hyperglycemia E11.65 ; Hepatitis C B19.20 ; Gastritis and duodenitis K29.90 and Dysuria R30.0 [facility] [id number] [place] [address] 13601- 6330 March, Panic disorder with agoraphobia F40.01 ; Chronic post- traumatic stress disorder (PTSD) F43.12 ; Epilepsy G40.909 and Bipolar I disorder with mood-congruent psychotic features F31.9 [facility] [address] [address]- 7570 March, [facility] [id number] [place] [address] 96099- 0698 March, Type 2 diabetes mellitus with hyperglycemia E11.65 [facility] [id number] [place] [address] 03518- 4252 Jan, Bipolar I disorder with duy F31.10 [facility] [id number] [place] [address] 47024- 8726 17 Jan, 2017 Bipolar 2 disorder F31.81 ; Chronic post-traumatic stress disorder (PTSD) F43.12 and Type 2 diabetes mellitus with hyperglycemia E11.65 [facility] [id number] [place] [address] 60075- 2516 Jan, [facility] [address] 42775- 6401 Jan, [facility] [id number] [place] [address] 03758- 0633 14 Jan, 2017 Panic disorder with agoraphobia F40.01 [facility] [id number] [place] [address] 90582- 3237 13 Jan, 2017 Panic disorder with agoraphobia F40.01 ; Bipolar I disorder with mood-congruent psychotic features F31.9 ; Chronic post-traumatic stress disorder (PTSD) F43.12 and Epilepsy G40.909 [facility] [id number] [place] [address] 93776- 0599 Jan, [facility] [id number] [place] [address] 45065- 7234 Jan, [facility] [id number] [place] [address] 68370- 3607 Jan, Type 2 diabetes mellitus without complications E11.9 and Hypoglycemia E16.2 [facility] [id number] [place] [address] 30520- 2651 07 Jan, 2017 Type 2 diabetes mellitus without complications E11.9 ; Primary insomnia F51.01 and Hypertension, benign I10 [facility] [id number] [place] [address] 72265- 3661 06 Jan, 2017 [facility] [id number] [place] [address] [id number] Jan, [facility] [address] 21845- 5881 Dec, Type 2 diabetes mellitus with hyperglycemia E11.65 [facility] [id number] [place] [address] 30278- 2304 Dec, [facility] [id number] [place] [address] 97628- 7780 Dec, Bipolar 2 disorder F31.81 ; Panic disorder with agoraphobia F40.01 ; Chronic post-traumatic stress disorder (PTSD) F43.12 and Epilepsy G40.909 [facility] [id number] [place] [address] 83478- 7284 Dec, [facility] [id number] [place] [address] 90154- 0098 Dec, [facility] [id number] [place] [address] 89235- 1706 Dec, Bipolar 2 disorder F31.81 ; Panic disorder with agoraphobia F40.01 ; Chronic post-traumatic stress disorder (PTSD) F43.12 and Epilepsy G40.909 [facility] [id number] [place] [address] 54564- 3492 Dec, [facility] [id number] [place] [address] 68354- 7922 Dec, [facility] [id number] [place] [address] 69724- 6573 Dec, [facility] [id number] [place] [address] 32286- 3314 Dec, Type 2 diabetes mellitus with hyperglycemia E11.65 ; 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 and Lumbago M54.5 [facility] [id number] [place] [address] 50005- 4341 Dec, [facility] [id number] [place] [address] 82711- 0617 Dec, [facility] [id number] [place] [address] 70113- 4647 Dec, [facility] [id number] [place] [address] 71915 -8044 Dec, Pain of left leg M79.605 and Pain in right leg M79.604 [facility] [id number] [place] [address] 36913- 0733 Dec, [facility] [address] 50394- 4830 Dec, Type 2 diabetes mellitus with hyperglycemia E11.65 [facility] [address] 25528- 2214 Dec, [facility] [id number] [place] [address] 92105- 1980 Dec, Type 2 diabetes mellitus with hyperglycemia E11.65 ; [facility] current use of insulin Z79.4 ; Vagina, candidiasis B37.3 and Other chronic pain G89.29 [facility] [id number] [place] [address] 30062- 3077 Nov, Panic disorder with agoraphobia F40.01 [facility] [address] 49368- 1722 Nov, [facility] [id number] [place] [address] 98521- 9093 Nov, [facility] [address] 52728- 1078 Nov, Hypoglycemia E16.2 [facility] [id number] [place] [address] 79578- 5732 Nov, [facility] [address] 21105- 7544 Nov, [facility] [id number] [place] [address] 88927- 4372 Nov, [facility] [address] [place] [address]- 5263 13 Nov, 2016 Type 2 diabetes mellitus with hyperglycemia E11.65 and [facility] current use of insulin Z79.4 [facility] [id number] [place] [address] 34124- 0014 Nov, Panic disorder with agoraphobia F40.01 ; Bipolar 2 disorder F31.81 ; Chronic post-traumatic stress disorder (PTSD) F43.12 and Epilepsy G40.909 [facility] [id number] [place] [address] 82311- 9987 Nov, Panic disorder with agoraphobia F40.01 [facility] [id number] [place] [address] 43055- 5792 Oct, [facility] [id number] [place] [address] 42321- 4234 Oct, [facility] [id number] [place] [address] 71339- 6266 Oct, Bipolar 2 disorder F31.81 ; Panic disorder with agoraphobia F40.01 and Mood disorder F39 [facility] [id number] [place] [address] 90604- 5889 Oct, Diabetes E11.9 ; Type 2 diabetes mellitus with hyperglycemia E11.65 and 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 [facility] [id number] [place] [address] 26347- 8198 Oct, [facility] [id number] [place] [address] 49143- 2314 Sep, [facility] [id number] [place] [address] 32377- 2156 Sep, Bipolar 2 disorder F31.81 and Mood disorder F39 [facility] [id number] [place] [address] 80409- 9506 Sep, [facility] [id number] [place] [address] 75607- 7395 Sep, Uncontrolled type 2 diabetes mellitus without complication, without long-term current use of insulin E11.65 [facility] [id number] [place] [address] 47826- 8213 Sep, [facility] [id number] [place] [address] 23007- 5695 Sep, [facility] [id number] [place] [address] 16118- 9166 Sep, [facility] [id number] [place] [address] 06482- 6958 Sep, [facility] [id number] [place] [address] 37461- 3761 Sep, Bipolar 2 disorder F31.81 ; Chronic post-traumatic stress disorder (PTSD) F43.12 ; Panic disorder with agoraphobia F40.01 and Epilepsy G40.909 [facility] [id number] [place] [address] 56642- 3933 Sep, Bipolar 2 disorder F31.81 ; PTSD (post-traumatic stress disorder) F43.10 and Panic disorder with agoraphobia F40.01 [facility] [id number] [place] [address] 31373- 6863 Sep, [facility] [id number] [place] [address]- [address]398 Aug, History of seizures Z87.898 ; Panic disorder with agoraphobia F40.01 and Bipolar 2 disorder F31.81 [facility] [id number] [address] Aug, [facility] [address] [place] [id number] [place] [id number]- [phone] 17 Aug, 2016 [facility] [id number] [place] [address] 62169- [phone] Aug, [facility] [address] [place] [id number] [place] [address] 67326- 3596 Aug, [facility] [id number] [place] [address] 06591- 3279 Aug, [facility] [id number] [place] [address] 00062- 7854 Aug, [facility] [id number] [place] [address] 40226- 4080 Aug, Hypoglycemia E16.2 and Bilateral impacted cerumen H61.23 [facility] [id number] [place] [address] 81206- 0216 Aug, [facility] [id number] [place] [address] 85167- 1167 Jul, [facility] [id number] [place] [address] 35472- 6039 Jul, [facility] [address] 33349- 3576 15 Jul, 2016 Bipolar 2 disorder F31.81 ; Panic disorder with agoraphobia F40.01 ; PTSD (post-traumatic stress disorder) F43.10 and Epilepsy G40.909 [facility] [id number] [place] [address] 92682- 4236 Jul, [facility] [id number] [place] [address] 17267- 1853 09 Jul, 2016 Type 2 diabetes mellitus without complications E11.9 and Coughing R05 [facility] [id number] [place] [address] 19025- 8007 Jul, [facility] [id number] [place] [address] 80221- 0793 Jun, [facility] [id number] [place] [address] 30376- 1045 Jun, Bipolar 2 disorder F31.81 ; PTSD (post-traumatic stress disorder) F43.10 and Panic disorder with agoraphobia F40.01 [facility] [address] [place] [address] 8449 Jun, [facility] [id number] [place] [address] 78169- 5041 Jun, [facility] [id number] [address] 4630 Jun, [place] [id number] [place] [address] 68651- 0683 Jun, Type 2 diabetes mellitus without complications E11.9 and COPD (chronic obstructive pulmonary disease) J44.9 [facility] [id number] [place] [address] [id number] May, Dental examination Z01.20 and Dental caries K02.9 [facility] [id number] [place] [address] 71651- 2863 May, Bipolar 2 disorder F31.81 ; PTSD (post-traumatic stress disorder) F43.10 and Panic disorder with agoraphobia F40.01 [place] [id number] [place] [address] 98041- 5151 May, Lumbago with sciatica, right side M54.41 ; Other chronic pain G89.29 and Uncontrolled type 2 diabetes mellitus without complication, without long-term current use of insulin E11.65 [facility] [id number] [place] [address] 60971- 7304 May, Chronic bronchitis, unspecified chronic bronchitis type J42 [facility] [id number] [address]- 0829 May, [facility] [id number] [place] [address] 33379- 6632 May, [facility] [id number] [place] [address] 57880- 2450 May, Chest pain, unspecified type R07.9 ; Tobacco use Z72.0 ; Type 2 diabetes mellitus without complications E11.9 ; Essential hypertension I10 ; Hyperlipidemia, unspecified hyperlipidemia type E78.5 ; Obesity (BMI 30- 39.9) E66.9 ; History of hypothyroidism Z86.39 ; Chronic obstructive pulmonary disease, unspecified COPD type J44.9 ; Anxiety F41.9 ; Bilateral claudication of lower limb I73.9 and Bipolar 2 disorder F31.81 [facility] [id number] [place] [address] 98990- 7096 May, Bipolar 2 disorder F31.81 ; Panic disorder with agoraphobia F40.01 and Tobacco abuse Z72.0 [facility] [address] 22646- 0830 Apr, [place] [address] 32615- 8425 Apr, [facility] [facility] [address] 31384- 3858 Apr, [facility] [address] 37918- 2452 Apr, Bipolar 2 disorder F31.81 ; Panic disorder with agoraphobia F40.01 and PTSD (post-traumatic stress disorder) F43.10 [facility] [address] 95701- 1401 Apr, Chronic bronchitis, unspecified chronic bronchitis type J42 ; Cervical neuritis M54.12 and Thoracic neuritis M54.14 [facility] [id number] [place] [address] 57905- 2665 Apr, [facility] [id number] [place] [address] 71238- 1690 Apr, Cervicalgia M54.2 [place] [address] 18439- 3386 Apr, Bipolar 2 disorder F31.81 ; Panic disorder with agoraphobia F40.01 and PTSD (post-traumatic stress disorder) F43.10 [facility] [id number] [place] [address] 67679 -1074 Apr, [facility] [id number] [address] Apr, Cough R05 and Tobacco dependence F17.200 [facility] [id number] [place] [address] 23657- 5210 Apr, [facility] [id number] [place] [address] 08194- 5112 Apr, [facility] [id number] [place] [address] 72029- 3129 March, Bipolar 2 disorder F31.81 ; Panic disorder with agoraphobia F40.01 and Generalized anxiety disorder F41.1 [facility] [id number] [place] [address] 89495- 9573 March, Closed displaced fracture of fifth metatarsal bone of right foot with routine healing, subsequent encounter S92.351D [facility] [id number] [place] [address] 42810- 3901 March, Bronchitis J40 [facility] [id number] [place] [address] 29882- 1429 March, [facility] [id number] [place] [address] 65397- 6988 March, [facility] [id number] [place] [address] 35366- 8002 March, Foot pain, right M79.671 ; Cervicalgia M54.2 and Controlled type 2 diabetes mellitus without complication, unspecified chcf insulin use status E11.9 [facility] [id number] [place] [address] 79657- 3970 March, Fracture of fifth metatarsal bone of right foot S92.351A [facility] [id number] [place] [address] 77595- 7898 March, [facility] [id number] [place] [address] 89508- 6077 Jan, Fracture of fifth metatarsal bone of right foot S92.351A [facility] [address] [address]- 5251 Jan, Bipolar 2 disorder F31.81 ; PTSD (post-traumatic stress disorder) F43.10 ; Panic disorder with agoraphobia F40.01 and Epilepsy G40.909 [facility] [id number] [place] [address] 72259- 8666 Jan, [address] (myocardial infarction) I25.2 and History of high cholesterol Z86.39 [facility] [id number] [place] [address] 42176- 9090 Jan, Bipolar 2 disorder F31.81 ; Panic disorder with agoraphobia F40.01 ; Tobacco abuse Z72.0 and PTSD (post-traumatic stress disorder) F43.10 [facility] [id number] [place] [address] 22890- 5235 Jan, Fracture of fifth metatarsal bone of right foot S92.351A [facility] [id number] [place] [address] 11290- 4079 Jan, [facility] [id number] [place] [address] 56643- 4695 Jan, History of high cholesterol Z86.39 [place] [address] [address]- 4[address] Jan, [address] (myocardial infarction) I25.2 [place] [id number] [place] [address] 66961- 6960 Jan, [facility] [id number] [place] [address] 97501- 4550 Dec, Back pain M54.9 ; Diabetes E11.9 ; Right knee pain M25.561 and Chest pain R07.9 [facility] [id number] [place] [address] 01958- 5616 Dec, [facility] [id number] [place] [address] 56659- 0918 Dec, [facility] [id number] [place] [address] 04052- 7795 Dec, Cervicalgia M54.2 [facility] [id number] [place] [address] 79332- 7876 Dec, Bipolar 2 disorder F31.81 ; PTSD (post-traumatic stress disorder) F43.10 ; Panic disorder with agoraphobia F40.01 and Epilepsy G40.909 [facility] [id number] [place] [address] 62464- 3454 Dec, Bipolar 2 disorder F31.81 ; PTSD (post-traumatic stress disorder) F43.10 and Panic disorder with agoraphobia F40.01 [facility] [id number] [place] [address] 73264- 4694 Dec, Diabetes E11.9 [facility] [id number] [place] [address] 87007- 7551 Dec, [facility] [id number] [place] [address] 48844- 5859 Dec, Other chronic pain G89.29 ; Hepatitis C B19.20 and History of seizures Z87.898 [facility] [id number] [place] [address] 14639- 2336 Dec, [facility] [id number] [place] [address] 45329- 6478 Dec, Bipolar 2 disorder F31.81 and Other chronic pain G89.29 [facility] [id number] [place] [address] 42908- 7309 Dec, Cervicalgia M54.2 and Diabetes E11.9 [facility] [id number] [place] [address] 11278- 1146 Dec, [facility] [address] 63031- 1813 Dec, [facility] [id number] [place] [address] 46124- 3289 Dec, [facility] [address] 26871- 8911 Dec, [facility] [id number] [place] [address] 82265- 2595 Dec, Type 2 diabetes mellitus without complications E11.9 [facility] [id number] [place] [address] 44655- 6979 Dec, [facility] [address] 26918- 0984 Dec, History of seizures Z87.898 and Hepatitis C B19.20 [place] [address] 91302- 4677 Dec, Hepatitis C B19.20 [facility] [id number] [place] [address] 39431- 5384 Dec, [facility] [id number] [place] [address] 74124- 1305 Dec, Cervicalgia M54.2 ; COPD (chronic obstructive pulmonary disease) J44.9 and Hepatitis C B19.20 [facility] [id number] [place] [address] 62534- 7000 Dec, Bipolar 2 disorder F31.81 ; History of hypertension Z86.79 ; History of anxiety Z86.59 ; Panic disorder with agoraphobia F40.01 and Epilepsy G40.909 [facility] [id number] [place] [address] 71481- 3630 Nov, [facility] [id number] [place] [address] 48165- 8498 Nov, [facility] [id number] [place] [address] 49638- 2830 Nov, History of seizures Z87.898 ; OAB (overactive bladder) N32.81 ; Lumbago M54.5 ; Other chronic pain G89.29 ; Cervicalgia M54.2 ; Tobacco abuse Z72.0 ; Tobacco abuse counseling Z71.6 and Impaired fasting glucose R73.01 [facility] [id number] [place] [address] 04572- 4021 14 Nov, 2015 Bipolar 2 disorder F31.81 ; PTSD (post-traumatic stress disorder) F43.10 ; History of anxiety Z86.59 ; History of COPD Z87.09 ; Panic disorder with agoraphobia F40.01 and Moderate depressed bipolar I disorder F31.[address] 77341- 6714 Nov, PTSD (post-traumatic stress disorder) F43.10 [facility] [id number] [place] [address] [id number] Nov, Dental examination Z01.20 and Dental caries K02.9 [id number] [place] [address] 95616- 2728 Nov, History of hypertension Z86.79 ; History of hypothyroidism Z86.39 ; History of high cholesterol Z86.39 ; History of COPD Z87.09 and Overactive bladder N32.81 [facility] [id number] [place] [address] 25119- 3260 Nov, Bipolar 2 disorder F31.81 and PTSD (post-traumatic stress disorder) F43.10 [facility] [id number] [place] [address] 86905- 6728 Nov, PTSD (post-traumatic stress disorder) F43.10 ; Panic disorder with agoraphobia F40.01 ; Epilepsy G40.909 and Moderate depressed bipolar I disorder F31.32 [facility] [id number] [place] [address] 11782- 7007 Nov, [address] 54841- 9880 Nov, [id number] [place] [address] 73030- 3461 Oct, [place] [id number]- 5633 Oct, Generalized anxiety disorder F41.1 ; Major depression, recurrent F33.9 and PTSD (post-traumatic stress disorder) F43.[address] 32521- 3561 Oct, Elevated fasting glucose R73.[address] 85399- 2628 Oct, Elevated fasting glucose R73.[address] 82392- 3984 Oct, History of COPD Z87.[address] 34729- 8748 Oct, General medical exam Z00.00 ; History of hypertension Z86.79 ; History of hypothyroidism Z86.39 ; History of hepatitis Z86.19 ; History of high cholesterol Z86.39 and History of seizures Z87.[address] 17385- 6419 Oct, General medical exam Z00.00 ; History of hypertension Z86.79 ; History of hypothyroidism Z86.39 ; Bipolar 2 disorder F31.81 ; PTSD ( post-traumatic stress disorder) F43.10 ; History of hepatitis Z86.19 ; History of high cholesterol Z86.39 ; History of anxiety Z86.59 ; History of seizures Z87.898 ; History of CT (myocardial infarction) I25.2 and History of COPD Z87.[address] 00229- 4340 Oct, Generalized anxiety disorder F41.1 ; Depression F32.9 and PTSD (post-traumatic stress disorder) F43.10 [place] [id number]- 2546 Jan, [facility] [address] [facility] [id number] [address]- 2546 Jan, [facility] [address] [facility] [id number] [address]- 2546 Jun, [facility] [address] [place] [id number] Jun, [facility] [address] [address]- 2546 May, [facility] [address] [facility] [id number] [address]- 2546 May, [place] [address] [place] [id number] May, [facility] [id number] [address]- 2546 May, [place] [address] [place] [id number] May, [facility] [address] [facility] [id number] [address]- 2546 May, IMMUNIZATIONS No Known Immunizations SOCIAL HISTORY Never Assessed REASON FOR VISIT Refill request PLAN OF CARE VITAL SIGNS MEDICATIONS Medication Instructions Dosage Frequency Start Date End Date Duration Status Ditropan XL 10 mg Orally Once a day 1 tablet 24h Jan, Jun, 30 day(s) Active RESULTS No Results [...]
--- OUTSIDE RECORDS SUMMARY | 2019-01-26 08:16 | XMS REPORT ---
Author Author GERARDO KISER [facility] Address [address] [place] [address] Care Team Providers Care Allergy Physician Name Role Phone MARGI GERARDO Unavailable PROBLEMS Type Condition ICD9-CM Code WED48-MF Code Onset Dates Condition Status SNOMED Code Problem OAB (overactive bladder) N32.81 Active 612838851 Problem Epilepsy G40.909 Active 94359963 Problem Cervicalgia M54.2 Active 70809939 Problem Other chronic pain G89.29 Active 18692165 Problem Tobacco abuse Z72.0 Active 30856854 Problem Lumbago M54.5 Active 974641543 Problem Hepatitis C B19.20 Active 48922833 Problem COPD (chronic obstructive pulmonary disease) J44.9 Active 34958019 Problem Diabetes E11.9 Active 31730986 Problem Bipolar I disorder with duy F31.10 Active 50627665 Problem Type 2 diabetes mellitus without complications E11.9 Active 470346986 Problem Stress incontinence of urine N39.3 Active 91614156 Problem Bilateral claudication of lower limb I73.9 Active 420395740 Problem Seasonal allergic rhinitis due to other allergic trigger J30.89 Active 142037532 Problem Hyperlipidemia, unspecified hyperlipidemia type E78.5 Active 43178049 Problem Hypertension, unspecified type I10 Active 03860173 Problem Chronic tension-type headache, not intractable G44.229 Active 578496366 Problem Controlled type 2 diabetes mellitus without complication, without long -term current use of insulin E11.9 Active 871027637 Problem Type 2 diabetes mellitus with hyperglycemia E11.65 Active 923063824 Problem Chronic post-traumatic stress disorder (PTSD) F43.12 Active 041899519 Problem History of hypothyroidism Z86.39 Active 482523739 Problem Hypoglycemia E16.2 Active 819602593 Problem El's esophageal ulceration K22.10 Active 921326389 Problem Bipolar affective disorder, currently depressed, mild F31.31 Active 167649319 Problem Irritable bowel syndrome with diarrhea K58.0 Active 468175649 Problem Stress incontinence N39.3 Active 14344211 Problem History of hypertension Z86.79 Active 173656630 Problem Uncontrolled type 2 diabetes mellitus without complication, without long-term current use of insulin E11.65 Active 547551692 Problem Panic disorder with agoraphobia F40.01 Active 36556288 Problem Type 2 diabetes mellitus with hyperglycemia E11.65 Active 402956126 Problem History of seizures Z87.898 Active 030237794 Problem FPC current use of insulin Z79.4 Active 068186623 Problem History of SD (myocardial infarction) I25.2 Active 609990523 Problem Mood disorder F39 Active 08321649 Problem Bipolar 2 disorder F31.81 Active 56321967 Problem Gastritis and duodenitis K29.90 Active 977458496 Problem History of high cholesterol Z86.39 Active 445878838 Problem Bipolar I disorder with mood-congruent psychotic features F31.9 Active 561218139 Problem Hypertension, benign I10 Active 54150544 Problem Primary insomnia F51.01 Active 9453521 ALLERGIES Substance Reaction Event Type Date Status Penicillin V Potassium Unknown Drug Allergy Jan, Active Metformin HCl diarrhea Drug Allergy Jan, Active Macrobid stomach upset Drug Allergy Jan, Active Iodine anaphylaxis Drug Allergy Jan, Active Fentanyl halucinations/insomnia Drug Allergy Jan, Active ENCOUNTERS Encounter Location Date Diagnosis [facility] [id number] [place] [address] 83390- 4009 Jun, [facility] [address] [address] 4[address] Jun, [facility] [address] [id number] May, [facility] [id number] [place] [address] 52951- 9873 May, [facility] [id number] [place] [address] 06766- 2371 May, [facility] [address] [address] 2969 May, [facility] [id number] [place] [address] 97282- 1430 May, [facility] [id number] [place] [address] 19753- 5000 May, [facility] [id number] [place] [address] May, Lumbago M54.5 [facility] [id number] [place] [address] 24265- 4500 May, [facility] [id number] [place] [address] 38947- 2876 Apr, Abnormal CT of the chest R93.8 [facility] [id number] [place] [address] 87965- 9490 Apr, Bipolar 2 disorder F31.81 ; Chronic post-traumatic stress disorder (PTSD) F43.12 and Panic disorder with agoraphobia F40.01 [facility] [id number] [place] [address] 72455- [address] Apr, [address] of the chest R93.8 [facility] [id number] [place] [address] 68505- [address] Apr, [address] of the chest R93.8 [facility] [address] [place] [address] 00078- 9715 Apr, [facility] [id number] [place] [address] 32904- 8725 Apr, Type 2 diabetes mellitus with hyperglycemia E11.65 [facility] [address] [place] [address] 92822- 7586 Apr, Controlled type 2 diabetes mellitus without complication, without long-term current use of insulin E11.9 ; Watery eyes H04.203 ; Low back pain M54.5 ; Other chronic pain G89.29 ; Chronic tension-type headache, not intractable G44.229 ; Uncontrolled type 2 diabetes mellitus without complication , without long-term current use of insulin E11.65 and Bronchitis J40 [facility] [id number] [address] 6508 Apr, [facility] [id number] [place] [address] 12130- 1735 Apr, Lumbago M54.5 [facility] [id number] [place] [address] 06633- 8099 March, [facility] [id number] [place] [address] 99615 -0197 March, Cough R05 ; Pneumonia due to infectious organism, unspecified laterality, unspecified part of lung J18.9 and Non-intractable vomiting with nausea, unspecified vomiting type R11.2 [facility] [id number] [place] [address] 51716- 9419 March, Bronchitis J40 [facility] [id number] [place] [address] 27756- 3602 March, [facility] [id number] [place] [address] 99167- 3962 March, El's esophageal ulceration K22.10 and Type 2 diabetes mellitus with hyperglycemia E11.65 [facility] [id number] [place] [address] 92689- 8993 March, Panic disorder with agoraphobia F40.01 ; Chronic post- traumatic stress disorder (PTSD) F43.12 and Bipolar 2 disorder F31.81 [facility] [id number] [place] [address] 87031- 7749 March, Type 2 diabetes mellitus with hyperglycemia E11.65 [facility] [id number] [place] [address] 41810- 2985 March, [facility] [id number] [place] [address] 14872- 9296 March, Lumbago M54.5 [facility] [id number] [place] [address] 36830- 6238 March, [facility] [id number] [place] [address] 94796- 7655 March, Irritable bowel syndrome with diarrhea K58.0 ; Primary insomnia F51.01 ; Type 2 diabetes mellitus with hyperglycemia E11.65 and FPC current use of insulin Z79.4 [facility] [id number] [place] [address] 63170- 1911 March, [facility] [address] 14918- 7752 Jan, [facility] [address] 49982- 4118 Jan, [facility] [address] 80700- 8403 Jan, [facility] [address] 33446- 6988 Jan, [facility] [address] 50174- 5086 Jan, Dizziness R42 [facility] [id number] [place] [address] 81621- 5241 Jan, Bipolar affective disorder, currently depressed, mild F31.31 ; Panic disorder with agoraphobia F40.01 and Chronic post-traumatic stress disorder (PTSD) F43.12 [facility] [id number] [place] [address] 41062- 3841 Jan, Dizziness R42 [facility] [id number] [place] [address] 87170- 4563 Jan, Chest pain, unspecified type R07.9 ; Exertional dyspnea R06.09 ; Hypertension, unspecified type I10 and Hyperlipidemia, unspecified hyperlipidemia type E78.5 [facility] [id number] [place] [address] 12445- 3059 Jan, [facility] [id number] [place] [address] 52516- 5996 Jan, Lumbago M54.5 [facility] [id number] [place] [address] 13038- 1076 04 Jan, 2018 El's esophageal ulceration K22.10 ; Blister (nonthermal ) of oral cavity, initial encounter S00.522A ; Local infection of the skin and subcutaneous tissue, unspecified L08.9 ; Type 2 diabetes mellitus with hyperglycemia E11.65 ; FPC current use of insulin Z79.4 and Stress incontinence N39.3 [facility] [address] 37205- 7285 27 Dec, 2017 [facility] [address] 85295- 6551 27 Dec, 2017 [facility] [id number] [place] [address] 50731- 4766 19 Dec, 2017 [facility] [address] [id number] Dec, 2017 Dental examination Z01.20 [facility] [address] 83449- 6692 15 Dec, 2017 Acute pain of right knee M25.561 [facility] [address] 12560- 0561 14 Dec, 2017 [facility] [id number] [place] [address] 30464- 4772 14 Dec, 2017 [facility] [id number] [place] [address] 43151- 3916 14 Dec, 2017 Lumbago M54.5 ; Acute pain of right knee M25.561 and Seasonal allergic rhinitis due to other allergic trigger J30.89 [facility] [address] 42248- 7874 12 Dec, 2017 Type 2 diabetes mellitus with hyperglycemia E11.65 [facility] [address] 79865- 3790 08 Dec, 2017 [facility] [address] 06436- 6573 Dec, [facility] [address], [place] [address] 4093 Dec, [facility] [id number] [place] [address] 31699- 6716 Dec, [facility] [id number] [place] [address] 56476- 0021 Dec, Chronic post-traumatic stress disorder (PTSD) F43.12 and Panic disorder with agoraphobia F40.01 [facility] [id number] [place] [address] 14065- 1093 13 Dec, 2017 Low back pain M54.5 [facility] [id number] [place] [address] 58284- 5619 12 Dec, 2017 Type 2 diabetes mellitus with hyperglycemia E11.65 ; FPC current use of insulin Z79.4 ; Low back pain M54.5 ; Other chronic pain G89.29 and Encounter for therapeutic drug level monitoring Z51.81 [facility] [id number] [place] [address] 86765- 0916 09 Dec, 2017 Coughing R05 [facility] [id number] [place] [address] 73217- 1689 09 Dec, 2017 [facility] [id number] [place] [address] [phone] 07 Dec, 2017 Dental examination Z01.20 [facility] [id number] [place] [address] 57657- 6650 Nov, Type 2 diabetes mellitus without complications E11.9 and Encounter for therapeutic drug level monitoring Z51.81 [facility] [id number] [place] [address] 36721- 7975 Nov, [facility] [id number] [place] [address] 69733- 8638 Oct, Type 2 diabetes mellitus without complications E11.9 [facility] [id number] [address]- 9226 Oct, Type 2 diabetes mellitus with hyperglycemia E11.65 [facility] [id number] [place] [address] 92377- 3657 Aug, Type 2 diabetes mellitus without complications E11.9 [facility] [id number] [place] [address] 22756- 2661 Aug, Type 2 diabetes mellitus without complications E11.9 ; Hypoglycemia E16.2 ; Lumbago M54.5 ; Stress incontinence of urine N39.3 and History of SD (myocardial infarction) I25.2 [facility] [id number] [place] [address] 15325- 0759 Jun, [facility] [id number] [place] [address] 19965- 3938 May, [facility] [id number] [place] [address] 69141- 6865 Apr, Panic disorder with agoraphobia F40.01 [facility] [id number] [place] [address] 10084- 3562 Apr, Panic disorder with agoraphobia F40.01 [facility] [id number] [place] [address] 48910- 4499 Apr, [facility] [id number] [place] [address] 02276- 4987 March, Other chronic pain G89.29 [facility] [id number] [address]- 5530 March, [facility] [id number] [address]- 6867 March, [facility] [id number] [place] [address] 23156- 6745 March, [facility] [address], [place] [address]- 9388 March, [facility] [address], [place] [address]- 0375 18 Mar, 2017 Type 2 diabetes mellitus without complications E11.9 [facility] [id number] [place] [address] 45649- 7641 16 Mar, 2017 Diarrhea, unspecified type R19.7 [facility] [id number] [place] [address] 36567- 9531 March, Bipolar 2 disorder F31.81 ; Chronic post-traumatic stress disorder (PTSD) F43.12 and Type 2 diabetes mellitus with hyperglycemia E11.65 [facility] [id number] [place] [address] 13539- 6963 March, [facility] [id number] [place] [address] 68296- 1465 March, [facility] [id number] [place] [address] 01411- 2023 March, Hypertension, benign I10 ; Type 2 diabetes mellitus with hyperglycemia E11.65 ; Hepatitis C B19.20 ; Gastritis and duodenitis K29.90 and Dysuria R30.0 [facility] [id number] [place] [address] 76429- 4373 March, Hypertension, benign I10 ; Type 2 diabetes mellitus with hyperglycemia E11.65 ; Hepatitis C B19.20 ; Gastritis and duodenitis K29.90 and Dysuria R30.0 [facility] [id number] [place] [address] 91208- 6218 March, Panic disorder with agoraphobia F40.01 ; Chronic post- traumatic stress disorder (PTSD) F43.12 ; Epilepsy G40.909 and Bipolar I disorder with mood-congruent psychotic features F31.9 [facility] [id number] [place] [address] 42375- 8286 March, [facility] [id number] [place] [address] 63360- 2071 March, Type 2 diabetes mellitus with hyperglycemia E11.65 [facility] [id number] [place] [address] 42197- 4561 18 Jan, 2017 Bipolar I disorder with duy F31.10 [facility] [id number] [place] [address] 53815- 2930 17 Jan, 2017 Bipolar 2 disorder F31.81 ; Chronic post-traumatic stress disorder (PTSD) F43.12 and Type 2 diabetes mellitus with hyperglycemia E11.65 [facility] [id number] [place] [address] 30913- 8689 17 Jan, 2017 [facility] [id number] [place] [address] 36688- 6591 Jan, [facility] [id number] [place] [address] 62832- 1179 14 Jan, 2017 Panic disorder with agoraphobia F40.01 [facility] [id number] [place] [address] 28808- 2151 13 Jan, 2017 Panic disorder with agoraphobia F40.01 ; Bipolar I disorder with mood-congruent psychotic features F31.9 ; Chronic post-traumatic stress disorder (PTSD) F43.12 and Epilepsy G40.909 [facility] [id number] [place] [address] 56351- 7759 Jan, [facility] [id number] [place] [address] 79451- 9172 Jan, [facility] [id number] [place] [address] 54166- 4398 10 Jan, 2017 Type 2 diabetes mellitus without complications E11.9 and Hypoglycemia E16.2 [facility] [id number] [place] [address] 62311- 1844 07 Jan, 2017 Type 2 diabetes mellitus without complications E11.9 ; Primary insomnia F51.01 and Hypertension, benign I10 [facility] [id number] [place] [address] 87938- 3259 06 Jan, 2017 [facility] [address] [id number] Jan, [facility] [address] [place] [address] 71551- 2523 Dec, Type 2 diabetes mellitus with hyperglycemia E11.65 [facility] [address] [place] [address] 32614- 1895 Dec, [facility] [id number] [place] [address] 77905- 3557 Dec, Bipolar 2 disorder F31.81 ; Panic disorder with agoraphobia F40.01 ; Chronic post-traumatic stress disorder (PTSD) F43.12 and Epilepsy G40.909 [facility] [id number] [place] [address] 18223- 7428 Dec, [facility] [id number] [place] [address] 09095- 1656 Dec, [facility] [id number] [place] [address] 21612- 4104 Dec, Bipolar 2 disorder F31.81 ; Panic disorder with agoraphobia F40.01 ; Chronic post-traumatic stress disorder (PTSD) F43.12 and Epilepsy G40.909 [facility] [address] [place] [address] 45579- 4264 Dec, [facility] [id number] [place] [address] 38655- 3922 Dec, [facility] [id number] [place] [address] 02677- 1331 Dec, [facility] [address] [place] [address] 43281- 3938 Dec, Type 2 diabetes mellitus with hyperglycemia E11.65 ; FPC current use of insulin Z79.4 and Lumbago M54.5 [facility] [address] [place] [address] 25527- 8635 Dec, [facility] [id number] [place] [address] 93428- 1771 Dec, [facility] [id number] [place] [address] 27714- 9419 Dec, [facility] [id number] [place] [address] 74229 -0897 Dec, Pain of left leg M79.605 and Pain in right leg M79.604 [facility] [id number] [place] [address] 60694- 2655 Dec, [facility] [id number] [place] [address] 81873- 6157 Dec, Type 2 diabetes mellitus with hyperglycemia E11.65 [facility] [address] 95831- 8968 Dec, [facility] [address] 56887- 6175 Dec, Type 2 diabetes mellitus with hyperglycemia E11.65 ; FPC current use of insulin Z79.4 ; Vagina, candidiasis B37.3 and Other chronic pain G89.29 [facility] [id number] [place] [address] 77839- 8778 Nov, Panic disorder with agoraphobia F40.01 [facility] [id number] [place] [address] 03000- 1997 Nov, [facility] [id number] [place] [address] 30412- 3050 Nov, [facility] [id number] [place] [address] 20769- 2007 Nov, Hypoglycemia E16.2 [facility] [id number] [place] [address] 35987- 0059 Nov, [facility] [id number] [place] [address] 54419- 2257 Nov, [facility] [address] 06047- 0588 Nov, [facility] [address], [place] [address]- 0254 Nov, Type 2 diabetes mellitus with hyperglycemia E11.65 and FPC current use of insulin Z79.4 [facility] [address], [place] [address]- 1247 Nov, Panic disorder with agoraphobia F40.01 ; Bipolar 2 disorder F31.81 ; Chronic post-traumatic stress disorder (PTSD) F43.12 and Epilepsy G40.909 [facility] [address], [place] [address]- 7720 Nov, Panic disorder with agoraphobia F40.01 [facility] [address], [place] [address]- 5246 Oct, [facility] [id number] [place] [address] 65062- 5151 Oct, [facility] [id number] [place] [address] 07416- 9824 Oct, Bipolar 2 disorder F31.81 ; Panic disorder with agoraphobia F40.01 and Mood disorder F39 [facility] [address], [place] [address]- 0087 Oct, Diabetes E11.9 ; Type 2 diabetes mellitus with hyperglycemia E11.65 and FPC current use of insulin Z79.4 [facility] [address], [place] [address]- 0279 Oct, [facility] [address] [place] [address]- 4867 Sep, [facility] [id number] [place] [address] 77117- 6489 Sep, Bipolar 2 disorder F31.81 and Mood disorder F39 [facility] [address], [place] [address]- 2220 Sep, [facility] [address] [place] [address]- 2666 Sep, Uncontrolled type 2 diabetes mellitus without complication, without long-term current use of insulin E11.65 [facility] [address] [place] [address]- 5348 Sep, [facility] [id number] [place] [address] 26135- 0744 Sep, [facility] [id number] [place] [address] 40637- 2702 Sep, [facility] [id number] [place] [address] 37975- 7778 Sep, [facility] [id number] [place] [address] 98378- 6589 Sep, Bipolar 2 disorder F31.81 ; Chronic post-traumatic stress disorder (PTSD) F43.12 ; Panic disorder with agoraphobia F40.01 and Epilepsy G40.909 [address] [id number] [place] [address] 21095- 3057 11 Sep, 2016 Bipolar 2 disorder F31.81 ; PTSD (post-traumatic stress disorder) F43.10 and Panic disorder with agoraphobia F40.01 [place] [address] [id number] [address] Sep, [facility] [id number] [place] [address] [id number]- 0965 28 Aug, 2016 History of seizures Z87.898 ; Panic disorder with agoraphobia F40.01 and Bipolar 2 disorder F31.81 [facility] [id number] [place] [address] [phone]- [phone] Aug, [facility] [id number] [place] [address] [id number]- [phone] 17 Aug, 2016 [facility] [id number] [place] [address] [id number]- 1758 Aug, [facility] [id number] [place] [address] [id number]- [phone] Aug, [facility] [id number] [place] [address] [phone]- [phone] Aug, [facility] [id number] [place] [address] [phone]- [phone] Aug, [facility] [address] 58562- 2210 Aug, Hypoglycemia E16.2 and Bilateral impacted cerumen H61.23 [facility] [id number] [place] [address] 02446- 4056 Aug, [facility] [id number] [place] [address] 71530- 4084 Jul, [facility] [id number] [place] [address] [phone]- [phone] Jul, [facility] [id number] [place] [address] [address] 15 Jul, 2016 Bipolar 2 disorder F31.81 ; Panic disorder with agoraphobia F40.01 ; PTSD (post-traumatic stress disorder) F43.10 and Epilepsy G40.909 [facility] [id number] [place] [address] 81971- 6319 Jul, [facility] [id number] [place] [address] 17355- 7745 Jul, Type 2 diabetes mellitus without complications E11.9 and Coughing R05 [facility] [id number] [place] [address] 35371- 0214 Jul, [facility] [id number] [place] [address] 59684- 4389 Jun, [facility] [id number] [place] [address] 03101- 0017 Jun, Bipolar 2 disorder F31.81 ; PTSD (post-traumatic stress disorder) F43.10 and Panic disorder with agoraphobia F40.01 [facility] [address] [address] Jun, [facility] [id number] [place] [address] 37133- 5200 Jun, [facility] [id number] [place] [address] 50922- 0426 Jun, [facility] [id number] [place] [address] 53474- 3500 Jun, Type 2 diabetes mellitus without complications E11.9 and COPD (chronic obstructive pulmonary disease) J44.9 [facility] [id number] [place] [address] [id number] May, Dental examination Z01.20 and Dental caries K02.9 [facility] [id number] [place] [address] 38294- 4586 May, Bipolar 2 disorder F31.81 ; PTSD (post-traumatic stress disorder) F43.10 and Panic disorder with agoraphobia F40.01 [facility] [id number] [place] [address] 33067- 1675 May, Lumbago with sciatica, right side M54.41 ; Other chronic pain G89.29 and Uncontrolled type 2 diabetes mellitus without complication, without long-term current use of insulin E11.65 [facility] [id number] [place] [address] 95386- 0741 May, Chronic bronchitis, unspecified chronic bronchitis type J42 [facility] [id number] [place] [address] 87519- 0072 May, [facility] [id number] [place] [address] 27217- 0290 May, [facility] [id number] [place] [address] 69316- 0692 May, Chest pain, unspecified type R07.9 ; [...] and Bipolar 2 disorder F31.81 [facility] [address] 19854- 2987 May, Bipolar 2 disorder F31.81 ; Panic disorder with agoraphobia F40.01 and Tobacco abuse Z72.0 [facility] [address] 82942- 3865 Apr, [facility] [id number] [place] [address] 28324- 7956 Apr, [facility] [address] 34803- 8535 Apr, [facility] [id number] [place] [address] 93557- 0320 Apr, Bipolar 2 disorder F31.81 ; Panic disorder with agoraphobia F40.01 and PTSD (post-traumatic stress disorder) F43.10 [facility] [id number] [place] [address] 74152- 0062 Apr, Chronic bronchitis, unspecified chronic bronchitis type J42 ; Cervical neuritis M54.12 and Thoracic neuritis M54.14 [facility] [id number] [place] [address] 64374- 6447 Apr, [facility] [id number] [place] [address] 47266- 1598 Apr, Cervicalgia M54.2 [facility] [id number] [place] [address] 00732- 8942 Apr, Bipolar 2 disorder F31.81 ; Panic disorder with agoraphobia F40.01 and PTSD (post-traumatic stress disorder) F43.10 [facility] [id number] [place] [address] 01411 -3445 13 Apr, 2016 [facility] [id number] [place] [address] 08340 -7292 09 Apr, 2016 Cough R05 and Tobacco dependence F17.200 [facility] [id number] [place] [address] 37758- 4853 Apr, [facility] [address] 43118- 4752 Apr, [facility] [id number] [place] [address] 56459- 7158 March, Bipolar 2 disorder F31.81 ; Panic disorder with agoraphobia F40.01 and Generalized anxiety disorder F41.1 [facility] [id number] [place] [address] 10482- 6248 March, Closed displaced fracture of fifth metatarsal bone of right foot with routine healing, subsequent encounter S92.351D [facility] [id number] [place] [address] 20891- 7201 March, Bronchitis J40 [facility] [id number] [place] [address] 71550- 3904 March, [facility] [id number] [place] [address] 53178- 0714 March, [facility] [id number] [place] [address] 62958- 4584 March, Foot pain, right M79.671 ; Cervicalgia M54.2 and Controlled type 2 diabetes mellitus without complication, unspecified senior care insulin use status E11.9 [facility] [id number] [place] [address] 26375- 6206 March, Fracture of fifth metatarsal bone of right foot S92.351A [facility] [id number] [place] [address] 87017- 0184 March, [facility] [id number] [place] [address] 24938- 6404 Jan, Fracture of fifth metatarsal bone of right foot S92.351A [facility] [id number] [place] [address] 59478- 5117 Jan, Bipolar 2 disorder F31.81 ; PTSD (post-traumatic stress disorder) F43.10 ; Panic disorder with agoraphobia F40.01 and Epilepsy G40.909 [facility] [address] 92179- 2869 Jan, History of SD (myocardial infarction) I25.2 and History of high cholesterol Z86.39 [facility] [address] 28610- 8719 Jan, Bipolar 2 disorder F31.81 ; Panic disorder with agoraphobia F40.01 ; Tobacco abuse Z72.0 and PTSD (post-traumatic stress disorder) F43.10 [facility] [address] 16154- 4913 Jan, Fracture of fifth metatarsal bone of right foot S92.351A [facility] [address] 89829- 1932 Jan, [facility] [address] 36170- 4387 Jan, History of high cholesterol Z86.39 [facility] [id number] [place] [address] 82664- 7603 Jan, History of SD (myocardial infarction) I25.2 [facility] [id number] [place] [address] 56829- 9033 Jan, [facility] [address] 54871- 3647 Dec, Back pain M54.9 ; Diabetes E11.9 ; Right knee pain M25.561 and Chest pain R07.9 [facility] [address] [place] [address]- 5946 Dec, [facility] [address] 40238- 0354 Dec, [facility] [address] 62336- 8241 Dec, Cervicalgia M54.2 [facility] [address] 68102- 7843 Dec, Bipolar 2 disorder F31.81 ; PTSD (post-traumatic stress disorder) F43.10 ; Panic disorder with agoraphobia F40.01 and Epilepsy G40.909 [facility] [address] 16353- 4276 Dec, Bipolar 2 disorder F31.81 ; PTSD (post-traumatic stress disorder) F43.10 and Panic disorder with agoraphobia F40.01 [facility] [address] 06606- 3322 Dec, Diabetes E11.9 [facility] [address] 23169- 1246 Dec, [facility] [address] 32974- 0077 Dec, Other chronic pain G89.29 ; Hepatitis C B19.20 and History of seizures Z87.898 [facility] [id number] [place] [address] 35374- 9214 Dec, [facility] [address] 34428- 1410 Dec, Bipolar 2 disorder F31.81 and Other chronic pain G89.29 [facility] [address] 25768- 1558 Dec, Cervicalgia M54.2 and Diabetes E11.9 [facility] [address] 40110- 8108 Dec, [facility] [id number] [place] [address] 38798- 5919 Dec, [facility] [id number] [place] [address] 71988- 4913 Dec, [facility] [id number] [place] [address] 16887- 5804 Dec, [facility] [address] 87577- 1990 Dec, Type 2 diabetes mellitus without complications E11.9 [facility] [address] 97438- 7722 10 Dec, 2015 [facility] [address] 96932- 6540 Dec, History of seizures Z87.898 and Hepatitis C B19.20 [facility] [address] 44408- 4654 08 Dec, 2015 Hepatitis C B19.20 [facility] [id number] [place] [address] 66865- 1753 Dec, [facility] [id number] [place] [address] 65930- 1642 Dec, Cervicalgia M54.2 ; COPD (chronic obstructive pulmonary disease) J44.9 and Hepatitis C B19.20 [facility] [id number] [place] [address] 17978- 5147 Dec, Bipolar 2 disorder F31.81 ; History of hypertension Z86.79 ; History of anxiety Z86.59 ; Panic disorder with agoraphobia F40.01 and Epilepsy G40.909 [facility] [id number] [place] [address] 12966- 9398 Nov, [facility] [id number] [place] [address] 71691- 7536 Nov, [facility] [id number] [place] [address] 32984- 6955 19 Nov, 2015 History of seizures Z87.898 ; OAB (overactive bladder) N32.81 ; Lumbago M54.5 ; Other chronic pain G89.29 ; Cervicalgia M54.2 ; Tobacco abuse Z72.0 ; Tobacco abuse counseling Z71.6 and Impaired fasting glucose R73.01 [facility] [address] 59762- 8458 Nov, Bipolar 2 disorder F31.81 ; PTSD (post-traumatic stress disorder) F43.10 ; History of anxiety Z86.59 ; History of COPD Z87.09 ; Panic disorder with agoraphobia F40.01 and Moderate depressed bipolar I disorder F31.[address] 58290- 7268 12 Nov, 2015 PTSD (post-traumatic stress disorder) F43.10 [facility] [address] [id number] Nov, Dental examination Z01.20 and Dental caries K02.[address] 00472- 4819 Nov, History of hypertension Z86.79 ; History of hypothyroidism Z86.39 ; History of high cholesterol Z86.39 ; History of COPD Z87.09 and Overactive bladder N32.81 [facility] [id number] [place] [address] 90743- 2417 Nov, Bipolar 2 disorder F31.81 and PTSD (post-traumatic stress disorder) F43.10 [facility] [id number] [place] [address] 75951- 4406 Nov, PTSD (post-traumatic stress disorder) F43.10 ; Panic disorder with agoraphobia F40.01 ; Epilepsy G40.909 and Moderate depressed bipolar I disorder F31.32 [facility] [id number] [place] [address] 32103- 5366 Nov, [facility] [address], [place] [address]- 2135 Nov, [facility] [id number] [place] [address] 63663- 9491 Oct, [facility] [address], [place] [address]- 9912 Oct, Generalized anxiety disorder F41.1 ; Major depression, recurrent F33.9 and PTSD (post-traumatic stress disorder) F43.10 [facility] [address], [place] [address]- 0433 Oct, Elevated fasting glucose R73.01 [place] [place] [id number] [place] [address] 21855- 0473 Oct, Elevated fasting glucose R73.01 [facility] [id number] [place] [address] 56679- 7746 Oct, History of COPD Z87.09 [facility] [address], [place] [address]- 2288 Oct, General medical exam Z00.00 ; History of hypertension Z86.79 ; History of hypothyroidism Z86.39 ; History of hepatitis Z86.19 ; History of high cholesterol Z86.39 and History of seizures Z87.898 [facility] [id number], [place] [address]- 5896 Oct, General medical exam Z00.00 ; History of hypertension Z86.79 ; History of hypothyroidism Z86.39 ; Bipolar 2 disorder F31.81 ; PTSD ( post-traumatic stress disorder) F43.10 ; History of hepatitis Z86.19 ; History of high cholesterol Z86.39 ; History of anxiety Z86.59 ; History of seizures Z87.898 ; History of SD (myocardial infarction) I25.2 and History of COPD Z87.09 [facility] [address], [place] [address]- 0750 Oct, Generalized anxiety disorder F41.1 ; Depression F32.9 and PTSD (post-traumatic stress disorder) F43.10 [facility] [address] [facility] [id number] [address]- 3740 Jan, [facility] [address] [facility] [id number], [place] [address]- 3566 Jan, [facility] [id number], [place] [address]- 7326 Jun, [facility] [address] [place] [id number] Jun, [facility] [address] [facility] [id number], [place] [address]- 5034 May, [facility] [address], [place] [address]- 5056 May, [facility] [address] [place] [id number] May, [facility] [id number], [place] [address]- 1466 May, [facility] [address] [place] [id number] May, [facility] [address] [facility] [id number], [place] [address]- 3226 May, IMMUNIZATIONS No Known Immunizations SOCIAL HISTORY Never Assessed REASON FOR VISIT Diabetes, PT also just had a scope done yesterday-Wendy REYNOSO PLAN OF CARE Activity Details Follow Up 4 Weeks Reason:dm2 uncontrolled VITAL SIGNS Height 62 in 2018-02-03 Weight 165.8 lbs 2018-02-03 Temperature 97.9 degrees Fahrenheit 2018-02-03 Heart Rate 82 bpm 2018-02-03 Respiratory Rate 20 2018-02-03 BMI 30.32 kg/m2 2018-02-03 Blood pressure systolic 120 mmHg 2018-02-03 Blood pressure diastolic 74 mmHg 2018-02-03 MEDICATIONS Medication Instructions Dosage Frequency Start Date End Date Duration Status Cali Farias Next Test - In Vitro 3 times a day as directed 8h March, Active Atenolol 50 mg Orally Once a day 1 tablet 24h 30 Active Carafate 1 GM Orally Twice a day 1 tablet at bedtime on an empty stomach before meals 12h Jan, March, 30 day(s) Active Microlet Lancets - as directed 8h 18 Mar, 2017 Active Lipitor 40 mg Orally Once a day 1 tablet 24h Active Xanax 2 MG Orally 3 times a day 1 tablet 8h Active Xyzal 5 mg Orally Once a day 1 tablet in the evening 24h Dec, Aug, 30 day(s) Active Levothyroxine Sodium 150 MCG Orally Once a day 1 tablet 24h 10 Oct, 2015 Active [place] 10-325 MG Orally 3 times a day 1 tablet as needed 8h Dec, 28 days Active Symbicort 160-4.5 MCG/ACT Inhalation Twice a day- rinse mouth and spit after use 2 puffs every day Apr, Active Blood Glucose Test Strip And lancets. DX E11.9 Test fasting and 2 hours after meal test 3 times per day Dec, Active Aspirin 81 MG Orally Once a day 1 tablet 24h May, 30 day(s) Active Protonix 40 MG Orally Once a day 1 tablet 24h Jan, 30 day(s) Active Montelukast Sodium 10 mg Orally Once a day 1 tablet 24h Oct, 30 days Active Ventolin HFA 108 (90 Base) MCG/ACT Inhalation every 6 hrs 2 puffs as needed 6h Active Insulin Syringe 31G X 5/16 subcutaneously 4 times a day Inject insulin 4 times daily as prescribed 6h Oct, Active Levemir 100 UNIT/ML Subcutaneous 2 times a day Inject 60 units 12h Dec, Active Nebulizer 1 as directed Apr, Active NovoLog 100 UNIT/ML Subcutaneous 3 times a day Inject 10 units 8h Dec, Active Albuterol Sulfate 1.25 MG/3ML Inhalation 4 times a day 3 ml as needed 6h Apr, Active Blood Glucose Monitor 1 glucometer test blood sugar Apr, Active Clindamycin HCl 300 MG Orally every 6 hrs 1 capsule 6h Jan,Jan 10 days Active Blood Glucose Monitor System w/Device DX- E11.9 Test fasting and 2 hours after meal test 3 times per day Dec, Active RESULTS No Results PROCEDURES No Known procedures INSTRUCTIONS MEDICATIONS ADMINISTERED No Known Medications MEDICAL (GENERAL) HISTORY Type Description Date Medical History Hypothyroidism Medical History High cholesterol Medical History Hypertension Medical History Brain seizure Medical History Asthma Medical History COPD Medical History Hep C -2004 Medical History SD x 2 last in [...]
--- OUTSIDE RECORDS SUMMARY | 2019-01-26 08:17 | XMS REPORT ---
Author Author GERARDO KISER [facility] Address [address] [place] [address] Care Team Providers [facility] [employer] Name Role Phone MARGI GERARDO Unavailable PROBLEMS Type Condition ICD9-CM Code [id number] Code Onset Dates Condition Status SNOMED Code Problem OAB (overactive bladder) N32.81 Active 051673809 Problem Epilepsy G40.909 Active 83701892 Problem Cervicalgia M54.2 Active 22918922 Problem Other chronic pain G89.29 Active 92620555 Problem Tobacco abuse Z72.0 Active 28107245 Problem Lumbago M54.5 Active 360250800 Problem Hepatitis C B19.20 Active 76947080 Problem COPD (chronic obstructive pulmonary disease) J44.9 Active 71279110 Problem Diabetes E11.9 Active 76906777 Problem Bipolar I disorder with duy F31.10 Active 87375110 Problem Type 2 diabetes mellitus without complications E11.9 Active 708781688 Problem Stress incontinence of urine N39.3 Active 27986163 Problem Bilateral claudication of lower limb I73.9 Active 721140130 Problem Seasonal allergic rhinitis due to other allergic trigger J30.89 Active 209846117 Problem Hyperlipidemia, unspecified hyperlipidemia type E78.5 Active 53133839 Problem Hypertension, unspecified type I10 Active 43521181 Problem Chronic tension-type headache, not intractable G44.229 Active 688809405 Problem Controlled type 2 diabetes mellitus without complication, without long -term current use of insulin E11.9 Active 189270927 Problem Type 2 diabetes mellitus with hyperglycemia E11.65 Active 370628656 Problem Chronic post-traumatic stress disorder (PTSD) F43.12 Active 389176718 Problem History of hypothyroidism Z86.39 Active 957837898 Problem Hypoglycemia E16.2 Active 109701907 Problem El's esophageal ulceration K22.10 Active 350422407 Problem Bipolar affective disorder, currently depressed, mild F31.31 Active 448405635 Problem Irritable bowel syndrome with diarrhea K58.0 Active 877390675 Problem Stress incontinence N39.3 Active 51414234 Problem History of hypertension Z86.79 Active 811445901 Problem Uncontrolled type 2 diabetes mellitus without complication, without long-term current use of insulin E11.65 Active 912975311 Problem Panic disorder with agoraphobia F40.01 Active 21599159 Problem Type 2 diabetes mellitus with hyperglycemia E11.65 Active 973698957 Problem History of seizures Z87.898 Active 004729435 Problem correction current use of insulin Z79.4 Active 189165312 Problem History of NH (myocardial infarction) I25.2 Active 450118901 Problem Mood disorder F39 Active 44626942 Problem Bipolar 2 disorder F31.81 Active 05601950 Problem Gastritis and duodenitis K29.90 Active 060158846 Problem History of high cholesterol Z86.39 Active 340767142 Problem Bipolar I disorder with mood-congruent psychotic features F31.9 Active 342848922 Problem Hypertension, benign I10 Active 22755553 Problem Primary insomnia F51.01 Active 6805683 ALLERGIES No Information ENCOUNTERS Encounter Location Date Diagnosis [facility] [id number] [place] [address] 66553- 9978 Jun, [facility] [id number] [place] [address] 52618- 7528 May, [facility] [id number] [place] [address] [id number] May, [facility] [id number] [place] [address] 39778- 8590 May, [facility] [id number] [place] [address] 97233- 4005 May, [facility] [id number] [place] [address] 84087- 6972 May, [facility] [id number] [place] [address] 26155- 4588 May, [facility] [id number] [place] [address] 12881- 4436 May, [facility] [address] [place] [address]- 0196 May, Lumbago M54.5 [place] [address] 82426- 2422 May, [place] [id number] [place] [address] 20360- 8066 Apr, Abnormal CT of the chest R93.8 [place] [address] 67041- 4231 Apr, Bipolar 2 disorder F31.81 ; Chronic post-traumatic stress disorder (PTSD) F43.12 and Panic disorder with agoraphobia F40.01 [place] [address] 40014- 6572 Apr, Abnormal CT of the chest R93.8 [place] [address] 84433- [address] Apr, [address] of the chest R93.8 [place] [id number] [place] [address] 35056- 9105 Apr, [place] [address] 29649- 0236 Apr, Type 2 diabetes mellitus with hyperglycemia E11.65 [facility] [facility] [id number] [place] [address] 26993- 9734 Apr, Controlled type 2 diabetes mellitus without complication, without long-term current use of insulin E11.9 ; Watery eyes H04.203 ; Low back pain M54.5 ; Other chronic pain G89.29 ; Chronic tension-type headache, not intractable G44.229 ; Uncontrolled type 2 diabetes mellitus without complication , without long-term current use of insulin E11.65 and Bronchitis J40 [place] [id number] [place] [address] 73777- 2636 Apr, [place] [id number] [place] [address] 93677- 9924 Apr, Lumbago M54.5 [facility] [id number] [place] [address] 35719- 2873 March, [facility] [id number] [place] [address] 49400 -4692 March, Cough R05 ; Pneumonia due to infectious organism, unspecified laterality, unspecified part of lung J18.9 and Non-intractable vomiting with nausea, unspecified vomiting type R11.2 [place] [id number] [place] [address] 93869- 2147 March, Bronchitis J40 [place] [id number] [place] [address] 20766- 0931 March, [place] [address] 85832- 5583 March, El's esophageal ulceration K22.10 and Type 2 diabetes mellitus with hyperglycemia E11.65 [place] [id number] [place] [address] 34140- 4230 March, Panic disorder with agoraphobia F40.01 ; Chronic post- traumatic stress disorder (PTSD) F43.12 and Bipolar 2 disorder F31.81 [place] [id number] [place] [address] 05454- 8257 March, Type 2 diabetes mellitus with hyperglycemia E11.65 [place] [id number] [place] [address] 08032- 4875 March, [place] [id number] [place] [address] 61750- 3347 March, Lumbago M54.5 [place] [id number] [place] [address] 62156- 4882 March, [place] [id number] [place] [address] 07407- 3819 March, Irritable bowel syndrome with diarrhea K58.0 ; Primary insomnia F51.01 ; Type 2 diabetes mellitus with hyperglycemia E11.65 and termination clerk 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 [facility] [address] [address] 8603 March, [facility] [id number] [place] [address] 82208- 1953 Jan, [facility] [id number] [place] [address] 43065- 8677 Jan, [facility] [id number] [place] [address] 92946- 0738 Jan, [facility] [id number] [place] [address] 40372- 9181 Jan, [place] [id number] [place] [address] 51698- 4416 Jan, Dizziness R42 [place] [id number] [place] [address] 65613- 5867 Jan, Bipolar affective disorder, currently depressed, mild F31.31 ; Panic disorder with agoraphobia F40.01 and Chronic post-traumatic stress disorder (PTSD) F43.12 [place] [id number] [place] [address] 79964- 8090 Jan, Dizziness R42 [facility] [id number] [place] [address] 53207- 7305 Jan, Chest pain, unspecified type R07.9 ; Exertional dyspnea R06.09 ; Hypertension, unspecified type I10 and Hyperlipidemia, unspecified hyperlipidemia type E78.5 [facility] [address] [address]- 3298 Jan, [place] [id number] [place] [address] 52681- 8234 Jan, Lumbago M54.5 [place] [address], [place] [address]- 7605 Jan, El's esophageal ulceration K22.10 ; Blister (nonthermal ) of oral cavity, initial encounter S00.522A ; Local infection of the skin and subcutaneous tissue, unspecified L08.9 ; Type 2 diabetes mellitus with hyperglycemia E11.65 ; termination clerk current use of insulin Z79.4 and Stress incontinence N39.3 [facility] [id number] [place] [address] 91576- 8458 27 Dec, 2017 [facility] [id number] [place] [address] 85747- 0593 27 Dec, 2017 [facility] [id number] [place] [address] 77490- 6646 19 Dec, 2017 [facility] [id number] [place] [address] [id number] 16 Dec, 2017 Dental examination Z01.20 [place] [id number] [place] [address] 63033- 7527 15 Dec, 2017 Acute pain of right knee M25.561 [place] [facility] [id number] [place] [address] 87813- 0180 14 Dec, 2017 [place] [id number] [place] [address] 13985- 2835 14 Dec, 2017 [place] [id number] [place] [address] 01558- 7686 14 Dec, 2017 Lumbago M54.5 ; Acute pain of right knee M25.561 and Seasonal allergic rhinitis due to other allergic trigger J30.89 [place] [id number] [place] [address] 09988- 3352 Dec, Type 2 diabetes mellitus with hyperglycemia E11.65 [place] [id number] [place] [address] 87913- 5584 Dec, [place] [id number] [place] [address] 73695- 5593 Dec, [facility] [id number] [place] [address] 57351- 0567 Dec, [place] [id number] [place] [address] 27859- 7983 15 Dec, 2017 [facility] [id number] [place] [address] 37669- 8613 15 Dec, 2017 Chronic post-traumatic stress disorder (PTSD) F43.12 and Panic disorder with agoraphobia F40.01 [facility] [id number] [place] [address] 59916- 0565 13 Dec, 2017 Low back pain M54.5 [facility] [id number] [place] [address] 04911- 6674 12 Dec, 2017 Type 2 diabetes mellitus with hyperglycemia E11.65 ; correction current use of insulin Z79.4 ; Low back pain M54.5 ; Encounter for therapeutic drug level monitoring Z51.81 and Other chronic pain G89.29 [place] [id number] [place] [address] 66427- 5852 09 Dec, 2017 Coughing R05 [place] [id number] [place] [address] 62500- 5236 09 Dec, 2017 [facility] [id number] [place] [address] [id number] 07 Dec, 2017 Dental examination Z01.20 [place] [id number] [place] [address] 86938- 5128 Nov, Type 2 diabetes mellitus without complications E11.9 and Encounter for therapeutic drug level monitoring Z51.81 [place] [id number] [place] [address] 80595- 5273 Nov, [place] [id number] [place] [address] 45009- 7734 Oct, Type 2 diabetes mellitus without complications E11.9 [place] [id number] [place] [address] 10149- 0740 Oct, Type 2 diabetes mellitus with hyperglycemia E11.65 [place] [id number] [place] [address] 90936- 5147 Aug, Type 2 diabetes mellitus without complications E11.9 [facility] [address], [place] [address]- 3406 Aug, Type 2 diabetes mellitus without complications E11.9 ; Hypoglycemia E16.2 ; Lumbago M54.5 ; Stress incontinence of urine N39.3 and History of NH (myocardial infarction) I25.2 [facility] [id number] [place] [address] 67444- 5345 Jun, [facility] [id number] [place] [address] 14293- 2193 May, [facility] [id number] [place] [address] 60468- 6646 Apr, Panic disorder with agoraphobia F40.01 [facility] [id number] [place] [address] 24755- 1817 Apr, Panic disorder with agoraphobia F40.01 [facility] [id number] [place] [address] 02129- 2635 Apr, [facility] [id number] [place] [address] 90878- 4112 March, Other chronic pain G89.29 [facility] [id number] [address]- 5861 March, [facility] [address], [place] [address]- 6084 March, [facility] [address], [place] [address]- 7264 March, [facility] [id number] [address]- 8621 March, [facility] [id number] [address]- 6194 March, Type 2 diabetes mellitus without complications E11.9 [facility] [id number] [address]- 3227 March, Diarrhea, unspecified type R19.7 [place] [id number] [place] [address] 55746- 5181 March, Bipolar 2 disorder F31.81 ; Chronic post-traumatic stress disorder (PTSD) F43.12 and Type 2 diabetes mellitus with hyperglycemia E11.65 [place] [id number] [place] [address] 15553- 4329 March, [place] [id number] [place] [address] 39375- 2729 March, [place] [id number] [place] [address] 61915- 6013 March, Hypertension, benign I10 ; Type 2 diabetes mellitus with hyperglycemia E11.65 ; Hepatitis C B19.20 ; Gastritis and duodenitis K29.90 and Dysuria R30.0 [place] [id number] [place] [address] 50741- 7041 March, Hypertension, benign I10 ; Type 2 diabetes mellitus with hyperglycemia E11.65 ; Hepatitis C B19.20 ; Gastritis and duodenitis K29.90 and Dysuria R30.0 [place] [id number] [place] [address] 82357- 1915 March, Panic disorder with agoraphobia F40.01 ; Chronic post- traumatic stress disorder (PTSD) F43.12 ; Epilepsy G40.909 and Bipolar I disorder with mood-congruent psychotic features F31.9 [place] [id number] [place] [address] 29596- 9869 March, [place] [id number] [place] [address] 24280- 2481 March, Type 2 diabetes mellitus with hyperglycemia E11.65 [place] [id number] [place] [address] 49482- 7506 Jan, Bipolar I disorder with duy F31.10 [place] [id number] [place] [address] 95686- 0410 17 Jan, 2017 Bipolar 2 disorder F31.81 ; Chronic post-traumatic stress disorder (PTSD) F43.12 and Type 2 diabetes mellitus with hyperglycemia E11.65 [facility] [id number] [place] [address] 61509- 0047 17 Jan, 2017 [facility] [id number] [place] [address] 25675- 4764 17 Jan, 2017 [facility] [id number] [place] [address] 24855- 9729 14 Jan, 2017 Panic disorder with agoraphobia F40.01 [facility] [id number] [place] [address] 03770- 8294 13 Jan, 2017 Panic disorder with agoraphobia F40.01 ; Bipolar I disorder with mood-congruent psychotic features F31.9 ; Chronic post-traumatic stress disorder (PTSD) F43.12 and Epilepsy G40.909 [facility] [id number] [place] [address] 94433- 1702 Jan, [facility] [id number] [place] [address] 16755- 2119 Jan, [facility] [id number] [place] [address] 45056- 0853 10 Jan, 2017 Type 2 diabetes mellitus without complications E11.9 and Hypoglycemia E16.2 [facility] [id number] [place] [address] 89594- 1676 Jan, Type 2 diabetes mellitus without complications E11.9 ; Primary insomnia F51.01 and Hypertension, benign I10 [facility] [id number] [place] [address] 46360- 8313 06 Jan, 2017 [facility] [id number] [place] [address] [id number] Jan, [facility] [id number] [place] [address] 44219- 5278 Dec, Type 2 diabetes mellitus with hyperglycemia E11.65 [facility] [id number] [place] [address] 69373- 3862 Dec, [facility] [id number] [place] [address] 11416- 8912 Dec, Bipolar 2 disorder F31.81 ; Panic disorder with agoraphobia F40.01 ; Chronic post-traumatic stress disorder (PTSD) F43.12 and Epilepsy G40.909 [facility] [id number] [place] [address] 58800- 1829 Dec, [facility] [id number] [place] [address] 16519- 2169 Dec, [place] [id number] [place] [address] 63408- 9969 Dec, Bipolar 2 disorder F31.81 ; Panic disorder with agoraphobia F40.01 ; Chronic post-traumatic stress disorder (PTSD) F43.12 and Epilepsy G40.909 [facility] [id number] [place] [address] 98279- 5699 Dec, [facility] [id number] [place] [address] 64060- 9744 Dec, [facility] [id number] [place] [address] 01945- 4348 Dec, [facility] [id number] [place] [address] 50507- 8199 Dec, Type 2 diabetes mellitus with hyperglycemia E11.65 ; correction current use of insulin Z79.4 and Lumbago M54.5 [facility] [id number] [place] [address] 49411- 0070 Dec, [facility] [id number] [place] [address] 39432- 1908 Dec, [facility] [id number] [place] [address] 70137- 4804 Dec, [facility] [id number] [place] [address] 36009 -5978 22 Dec, 2016 Pain of left leg M79.605 and Pain in right leg M79.604 [place] [id number] [place] [address] 66053- 4215 14 Dec, 2016 [place] [address] 43821- 6414 Dec, Type 2 diabetes mellitus with hyperglycemia E11.65 [place] [address] 68654- 8751 Dec, [place] [address] 33505- 9449 Dec, Type 2 diabetes mellitus with hyperglycemia E11.65 ; correction current use of insulin Z79.4 ; Vagina, candidiasis B37.3 and Other chronic pain G89.29 [place] [address] 13116- 9617 Nov, Panic disorder with agoraphobia F40.01 [place] [id number] [place] [address] 62970- 8028 Nov, [place] [id number] [place] [address] 57314- 9791 Nov, [place] [id number] [place] [address] 33055- 0744 Nov, Hypoglycemia E16.2 [place] [id number] [place] [address] 90914- 8222 Nov, [place] [id number] [place] [address] 61640- 6041 Nov, [place] [address] 89851- 6655 Nov, [place] [id number] [place] [address] 44494- 5462 Nov, Type 2 diabetes mellitus with hyperglycemia E11.65 and correction current use of insulin Z79.4 [facility] [address], [place] [address]- 8828 Nov, Panic disorder with agoraphobia F40.01 ; Bipolar 2 disorder F31.81 ; Chronic post-traumatic stress disorder (PTSD) F43.12 and Epilepsy G40.909 [facility] [address], [place] [address]- 1628 Nov, Panic disorder with agoraphobia F40.01 [facility] [id number] [address]- 1712 Oct, [place] [id number] [place] [address] 11803- 4089 Oct, [place] [id number] [place] [address] 38589- 5575 Oct, Bipolar 2 disorder F31.81 ; Panic disorder with agoraphobia F40.01 and Mood disorder F39 [place] [id number] [place] [address] 70775- 2928 Oct, Diabetes E11.9 ; Type 2 diabetes mellitus with hyperglycemia E11.65 and termination clerk current use of insulin Z79.4 [place] [id number] [address] Oct, [place] [id number] [address] Sep, [facility] [id number] [address] Sep, Bipolar 2 disorder F31.81 and Mood disorder F39 [place] [id number] [address] Sep, [place] [id number] [address] Sep, Uncontrolled type 2 diabetes mellitus without complication, without long-term current use of insulin E11.65 [place] [address] [place] [id number] [address] Sep, [facility] [id number] [place] [address] Sep, [facility] [id number] [address] Sep, [facility] [address] [place] [id number] [place] [address]- [address] Sep, [facility] [address] [place] [id number] [place] [address]- [address] Sep, Bipolar 2 disorder F31.81 ; Chronic post-traumatic stress disorder (PTSD) F43.12 ; Panic disorder with agoraphobia F40.01 and Epilepsy G40.909 [facility] [id number] [address] Sep, Bipolar 2 disorder F31.81 ; PTSD (post-traumatic stress disorder) F43.10 and Panic disorder with agoraphobia F40.01 [facility] [address] [id number] [address] Sep, [facility] [id number] [place] [address] 91298- 1571 28 Aug, 2016 History of seizures Z87.898 ; Panic disorder with agoraphobia F40.01 and Bipolar 2 disorder F31.81 [facility] [address] [address] Aug, [facility] [id number] [address] 6[address] 17 Aug, 2016 [facility] [id number] [place] [address] 67829- 9514 Aug, [facility] [address] [address] Aug, [facility] [id number] [place] [address] 74173- 3542 Aug, [facility] [id number] [address] 7[address] Aug, [facility] [id number] [place] [address] 89851- 1724 Aug, Hypoglycemia E16.2 and Bilateral impacted cerumen H61.23 [facility] [id number] [place] [address] 90334- 0934 Aug, [facility] [id number] [place] [address] 90538- 2722 Jul, [facility] [id number] [place] [address] 46124- 0553 Jul, [facility] [id number] [place] [address] 05174- 3318 15 Jul, 2016 Bipolar 2 disorder F31.81 ; Panic disorder with agoraphobia F40.01 ; PTSD (post-traumatic stress disorder) F43.10 and Epilepsy G40.909 [facility] [id number] [place] [address] 30043- 3573 Jul, [facility] [id number] [place] [address] 78884- 5377 09 Jul, 2016 Type 2 diabetes mellitus without complications E11.9 and Coughing R05 [facility] [id number] [place] [address] 31030- 4698 Jul, [facility] [id number] [place] [address] 20776- 9503 Jun, [facility] [id number] [place] [address] 97281- 8022 Jun, Bipolar 2 disorder F31.81 ; PTSD (post-traumatic stress disorder) F43.10 and Panic disorder with agoraphobia F40.01 [facility] [id number] [place] [address] 63584- 9620 Jun, [facility] [id number] [place] [address] 6467 Jun, [place] [id number] [place] [address] 24891- 0204 Jun, [place] [id number] [place] [address] 35503- 6823 Jun, Type 2 diabetes mellitus without complications E11.9 and COPD (chronic obstructive pulmonary disease) J44.9 [facility] [id number] [place] [address] [id number] May, Dental examination Z01.20 and Dental caries K02.9 [place] [address] 39596- 2367 May, Bipolar 2 disorder F31.81 ; PTSD (post-traumatic stress disorder) F43.10 and Panic disorder with agoraphobia F40.01 [place] [address] 17456- 7708 May, Lumbago with sciatica, right side M54.41 ; Other chronic pain G89.29 and Uncontrolled type 2 diabetes mellitus without complication, without long-term current use of insulin E11.65 [place] [id number] [place] [address] 28381- 3706 May, Chronic bronchitis, unspecified chronic bronchitis type J42 [place] [id number] [place] [address] 82750- 9266 May, [place] [id number] [place] [address] 27806- 3277 May, [place] [id number] [place] [address] 23547- 7441 May, Chest pain, unspecified type R07.9 ; Tobacco use Z72.0 ; Type 2 diabetes mellitus without complications E11.9 ; Essential hypertension I10 ; Hyperlipidemia, unspecified hyperlipidemia type E78.5 ; Obesity (BMI 30- 39.9) E66.9 ; History of hypothyroidism Z86.39 ; Chronic obstructive pulmonary disease, unspecified COPD type J44.9 ; Anxiety F41.9 ; Bilateral claudication of lower limb I73.9 and Bipolar 2 disorder F31.81 [place] [address] 52835- 0274 05 May, 2016 Bipolar 2 disorder F31.81 ; Panic disorder with agoraphobia F40.01 and Tobacco abuse Z72.0 [place] [address] 64664- 0661 Apr, [place] [address] 10502- 3579 Apr, [place] [address] 82420- 1794 Apr, [place] [address] 18843- 5092 Apr, Bipolar 2 disorder F31.81 ; Panic disorder with agoraphobia F40.01 and PTSD (post-traumatic stress disorder) F43.10 [place] [id number] [place] [address] 23826- 7854 Apr, Chronic bronchitis, unspecified chronic bronchitis type J42 ; Cervical neuritis M54.12 and Thoracic neuritis M54.14 [place] [id number] [place] [address] 52141- 6579 Apr, [place] [id number] [place] [address] 98146- 3374 Apr, Cervicalgia M54.2 [place] [id number] [place] [address] 23143- 7185 14 Apr, 2016 Bipolar 2 disorder F31.81 ; Panic disorder with agoraphobia F40.01 and PTSD (post-traumatic stress disorder) F43.10 [facility] [id number] [place] [address] 89388 -6015 13 Apr, 2016 [facility] [id number] [place] [address] 34878 -6347 Apr, Cough R05 and Tobacco dependence F17.200 [place] [id number] [place] [address] 08481- 7929 Apr, [place] [id number] [place] [address] 34979- 0641 Apr, [place] [id number] [place] [address] 18992- 1837 March, Bipolar 2 disorder F31.81 ; Panic disorder with agoraphobia F40.01 and Generalized anxiety disorder F41.1 [place] [id number] [place] [address] 92891- 4101 March, Closed displaced fracture of fifth metatarsal bone of right foot with routine healing, subsequent encounter S92.351D [place] [id number] [place] [address] 95044- 7992 March, Bronchitis J40 [place] [id number] [place] [address] 65893- 1259 March, [place] [id number] [place] [address] 27941- 3258 March, [place] [id number] [place] [address] 85722- 3350 March, Foot pain, right M79.671 ; Cervicalgia M54.2 and Controlled type 2 diabetes mellitus without complication, unspecified fci insulin use status E11.9 [place] [id number] [place] [address] 72589- 9643 March, Fracture of fifth metatarsal bone of right foot S92.351A [place] [id number] [place] [address] 34691- 7879 March, [place] [id number] [place] [address] 82930- 8357 Jan, Fracture of fifth metatarsal bone of right foot S92.351A [place] [id number] [place] [address] 57235- 5948 Jan, Bipolar 2 disorder F31.81 ; PTSD (post-traumatic stress disorder) F43.10 ; Panic disorder with agoraphobia F40.01 and Epilepsy G40.909 [place] [id number] [place] [address] 21323- 2766 Jan, History of NH (myocardial infarction) I25.2 and History of high cholesterol Z86.39 [place] [address] 03988- 5626 Jan, Bipolar 2 disorder F31.81 ; Panic disorder with agoraphobia F40.01 ; Tobacco abuse Z72.0 and PTSD (post-traumatic stress disorder) F43.10 [place] [id number] [place] [address] 05677- 9895 Jan, Fracture of fifth metatarsal bone of right foot S92.351A [place] [address] 91495- 7113 Jan, [place] [address] 98834- 5225 Jan, History of high cholesterol Z86.39 [place] [id number] [place] [address] 45699- 4480 Jan, History of NH (myocardial infarction) I25.2 [place] [id number] [place] [address] 71423- 7630 Jan, [place] [id number] [place] [address] 30235- 9914 Dec, Back pain M54.9 ; Diabetes E11.9 ; Right knee pain M25.561 and Chest pain R07.9 [place] [address] 40894- 7206 Dec, [place] [id number] [place] [address] 12571- 9155 Dec, [place] [id number] [place] [address] 90077- 6445 Dec, Cervicalgia M54.2 [place] [address] 57718- 0841 Dec, Bipolar 2 disorder F31.81 ; PTSD (post-traumatic stress disorder) F43.10 ; Panic disorder with agoraphobia F40.01 and Epilepsy G40.909 [place] [address] 59500- 1610 Dec, Bipolar 2 disorder F31.81 ; PTSD (post-traumatic stress disorder) F43.10 and Panic disorder with agoraphobia F40.01 [place] [address] 83935- 5874 Dec, Diabetes E11.[address] 81117- 1058 Dec, [place] [address] 74688- 7739 Dec, Other chronic pain G89.29 ; Hepatitis C B19.20 and History of seizures Z87.898 [place] [id number] [place] [address] 66549- 4118 Dec, [place] [id number] [place] [address] 66940- 0282 Dec, Bipolar 2 disorder F31.81 and Other chronic pain G89.29 [place] [id number] [place] [address] 46829- 6225 Dec, Cervicalgia M54.2 and Diabetes E11.9 [place] [address] 79361- 1120 Dec, [place] [id number] [place] [address] 31019- 1038 Dec, [place] [address] 39555- 3765 Dec, [place] [id number] [place] [address] 22334- 4856 Dec, [place] [id number] [place] [address] 88411- 4661 Dec, Type 2 diabetes mellitus without complications E11.9 [place] [address] 49568- 1703 Dec, [place] [address] 01626- 3932 Dec, History of seizures Z87.898 and Hepatitis C B19.20 [place] [address] 07544- 1020 Dec, Hepatitis C B19.20 [place] [address] 35701- 5182 Dec, [place] [address] 60980- 8541 Dec, Cervicalgia M54.2 ; COPD (chronic obstructive pulmonary disease) J44.9 and Hepatitis C B19.20 [place] [id number] [place] [address] 43648- 4915 Dec, Bipolar 2 disorder F31.81 ; History of hypertension Z86.79 ; History of anxiety Z86.59 ; Panic disorder with agoraphobia F40.01 and Epilepsy G40.909 [place] [id number] [place] [address] 03200- 8023 Nov, [place] [address] 72227- 3028 Nov, [place] [id number] [place] [address] 24922- 3723 Nov, History of seizures Z87.898 ; OAB (overactive bladder) N32.81 ; Lumbago M54.5 ; Other chronic pain G89.29 ; Cervicalgia M54.2 ; Tobacco abuse Z72.0 ; Tobacco abuse counseling Z71.6 and Impaired fasting glucose R73.01 [facility] [address] [place] [address] 81945- 9122 Nov, Bipolar 2 disorder F31.81 ; PTSD (post-traumatic stress disorder) F43.10 ; History of anxiety Z86.59 ; History of COPD Z87.09 ; Panic disorder with agoraphobia F40.01 and Moderate depressed bipolar I disorder F31.[address] 73673- 3685 Nov, PTSD (post-traumatic stress disorder) F43.10 [facility] [address] [id number] Nov, Dental examination Z01.20 and Dental caries K02.[address] 75293- 7348 Nov, History of hypertension Z86.79 ; History of hypothyroidism Z86.39 ; History of high cholesterol Z86.39 ; History of COPD Z87.09 and Overactive bladder N32.[address] 22694- 6430 Nov, Bipolar 2 disorder F31.81 and PTSD (post-traumatic stress disorder) F43.[address] 71890- 0193 Nov, PTSD (post-traumatic stress disorder) F43.10 ; Panic disorder with agoraphobia F40.01 ; Epilepsy G40.909 and Moderate depressed bipolar I disorder F31.[address] 03965- 8843 Nov, [address] 58193- 7396 Nov, [address] 76440- 4086 Oct, [address] [id number] [place] [address] 04097- 8544 Oct, Generalized anxiety disorder F41.1 ; Major depression, recurrent F33.9 and PTSD (post-traumatic stress disorder) F43.10 [id number] [place] [address] 43648- 9497 Oct, Elevated fasting glucose R73.[address] 53566- 3445 Oct, Elevated fasting glucose R73.[address] 91281- 3649 Oct, History of COPD Z87.[address] 92620- 2805 Oct, General medical exam Z00.00 ; History of hypertension Z86.79 ; History of hypothyroidism Z86.39 ; History of hepatitis Z86.19 ; History of high cholesterol Z86.39 and History of seizures Z87.898 [address] [id number] [place] [address] 61745- 2248 Oct, General medical exam Z00.00 ; History of hypertension Z86.79 ; History of hypothyroidism Z86.39 ; Bipolar 2 disorder F31.81 ; PTSD ( post-traumatic stress disorder) F43.10 ; History of hepatitis Z86.19 ; History of high cholesterol Z86.39 ; History of anxiety Z86.59 ; History of seizures Z87.898 ; History of NH (myocardial infarction) I25.2 and History of COPD Z87.09 [id number] [place] [address] 48964- 9599 Oct, Generalized anxiety disorder F41.1 ; Depression F32.9 and PTSD (post-traumatic stress disorder) F43.10 [id number] [place] [address] 74056- 8506 Jan, [place] [id number]- 2546 Jan, [facility] [address] [facility] [id number] [address]- 6936 Jun, [facility] [address] [place] [id number] Jun, [facility] [address] [facility]] [id number], [place] [address]- 8596 May, [facility] [id number] [address]- 2546 May, [place] [address] [place] [id number] May, [facility] [id number] [address]- 2546 May, [address] [place] [id number] May, [facility] [address] [facility] 3] [id number], [place] [address]- 2546 May, IMMUNIZATIONS No Known Immunizations SOCIAL HISTORY Never Assessed REASON FOR VISIT Nasal Drainage PLAN OF CARE VITAL SIGNS MEDICATIONS Medication Instructions Dosage Frequency Start Date End Date Duration Status Sudafed 30 MG Orally every 6 hrs 1 tablet as needed 6h Dec, Active RESULTS No Results PROCEDURES No [...]
--- OUTSIDE RECORDS SUMMARY | 2019-01-26 08:18 | XMS REPORT ---
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 Name Role Phone MARGI GERARDO Unavailable PROBLEMS Type Condition ICD9-CM Code SDO51-[place] Code Onset Dates Condition Status SNOMED Code Problem OAB (overactive bladder) N32.81 Active 666267201 Problem Epilepsy G40.909 Active 14494224 Problem Cervicalgia M54.2 Active 26359308 Problem Other chronic pain G89.29 Active 52732820 Problem Tobacco abuse Z72.0 Active 28211036 Problem Lumbago M54.5 Active 193588823 Problem Hepatitis C B19.20 Active 93168895 Problem COPD (chronic obstructive pulmonary disease) J44.9 Active 90388561 Problem Diabetes E11.9 Active 22207607 Problem Bipolar I disorder with duy F31.10 Active 18122740 Problem Type 2 diabetes mellitus without complications E11.9 Active 920073181 Problem Stress incontinence of urine N39.3 Active 71619406 Problem Bilateral claudication of lower limb I73.9 Active 036689343 Problem Seasonal allergic rhinitis due to other allergic trigger J30.89 Active 705584519 Problem Hyperlipidemia, unspecified hyperlipidemia type E78.5 Active 86406006 Problem Hypertension, unspecified type I10 Active 28643413 Problem Chronic tension-type headache, not intractable G44.229 Active 148372573 Problem Controlled type 2 diabetes mellitus without complication, without long -term current use of insulin E11.9 Active 852772053 Problem Type 2 diabetes mellitus with hyperglycemia E11.65 Active 547530582 Problem Chronic post-traumatic stress disorder (PTSD) F43.12 Active 278892426 Problem History of hypothyroidism Z86.39 Active 241471187 Problem Hypoglycemia E16.2 Active 401733300 Problem El's esophageal ulceration K22.10 Active 051241683 Problem Bipolar affective disorder, currently depressed, mild F31.31 Active 942985786 Problem Irritable bowel syndrome with diarrhea K58.0 Active 371401035 Problem Stress incontinence N39.3 Active 77588773 Problem History of hypertension Z86.79 Active 139261169 Problem Uncontrolled type 2 diabetes mellitus without complication, without long-term current use of insulin E11.65 Active 164823372 Problem Panic disorder with agoraphobia F40.01 Active 79716085 Problem Type 2 diabetes mellitus with hyperglycemia E11.65 Active 795281306 Problem History of seizures Z87.898 Active 467393328 Problem assisted current use of insulin Z79.4 Active 359783138 Problem History of SC (myocardial infarction) I25.2 Active 774757954 Problem Mood disorder F39 Active 68720216 Problem Bipolar 2 disorder F31.81 Active 69553113 Problem Gastritis and duodenitis K29.90 Active 617832018 Problem History of high cholesterol Z86.39 Active 746461589 Problem Bipolar I disorder with mood-congruent psychotic features F31.9 Active 008936421 Problem Hypertension, benign I10 Active 47459366 Problem Primary insomnia F51.01 Active 8570498 ALLERGIES Substance Reaction Event Type Date Status Penicillin V Potassium Unknown Drug Allergy Dec, Active Metformin HCl diarrhea Drug Allergy Dec, Active Macrobid stomach upset Drug Allergy Dec, Active Iodine anaphylaxis Drug Allergy Dec, Active Fentanyl halucinations/insomnia Drug Allergy Dec, Active ENCOUNTERS Encounter Location Date Diagnosis [facility] [address] [place] [address] 13622- 8554 Jun, [facility] [address], [place] [address] May, [facility] [address] [id number] May, [facility] [id number] [place] [address] 13289- 1407 May, [facility] [id number] [place] [address] 27281- 0608 May, [facility] [address] [place] [address] 04777- 7886 May, [facility] [id number] [place] [address] 91708- 1450 May, [facility] [address] [place] [address] 04687- 7413 May, [facility] [id number] [place] [address] May, Lumbago M54.5 [facility] [id number] [place] [address] 39471- 0070 May, [facility] [id number] [place] [address] 94880- [address] Apr, [address] of the chest R93.8 [facility] [id number] [place] [address] 98670- 5285 Apr, Bipolar 2 disorder F31.81 ; Chronic post-traumatic stress disorder (PTSD) F43.12 and Panic disorder with agoraphobia F40.01 [facility] [id number] [place] [address] 94474- [address] Apr, [address] of the chest R93.8 [facility] [address] [place] [address] 43858- [address] Apr, [address] of the chest R93.8 [facility] [address] [place] [address] 36108- 6501 Apr, [facility] [address] [place] [address] 27856- 3414 Apr, Type 2 diabetes mellitus with hyperglycemia E11.65 [facility] [address] [place] [address] 19236- 5226 Apr, Controlled type 2 diabetes mellitus without complication, without long-term current use of insulin E11.9 ; Watery eyes H04.203 ; Low back pain M54.5 ; Other chronic pain G89.29 ; Chronic tension-type headache, not intractable G44.229 ; Uncontrolled type 2 diabetes mellitus without complication , without long-term current use of insulin E11.65 and Bronchitis J40 [facility] [id number], [place] [address] 7502 Apr, [facility] [id number] [place] [address] 93706- 8717 Apr, Lumbago M54.5 [facility] [id number] [place] [address] 17576- 7114 March, [facility] [id number] [place] [address] 51283 -3435 March, Cough R05 ; Pneumonia due to infectious organism, unspecified laterality, unspecified part of lung J18.9 and Non-intractable vomiting with nausea, unspecified vomiting type R11.2 [facility] [id number] [place] [address] 66774- 4896 March, Bronchitis J40 [facility] [id number] [place] [address] 64654- 4424 March, [facility] [id number] [place] [address] 48236- 1714 March, El's esophageal ulceration K22.10 and Type 2 diabetes mellitus with hyperglycemia E11.65 [facility] [id number] [place] [address] 35746- 1094 March, Panic disorder with agoraphobia F40.01 ; Chronic post- traumatic stress disorder (PTSD) F43.12 and Bipolar 2 disorder F31.81 [facility] [id number] [place] [address] 18144- 3289 March, Type 2 diabetes mellitus with hyperglycemia E11.65 [facility] [id number] [place] [address] 24627- 7539 March, [facility] [id number] [place] [address] 35485- 5100 March, Lumbago M54.5 [facility] [address] [place] [address] 10266- 9000 March, [facility] [id number] [place] [address] 44716- 4218 March, Irritable bowel syndrome with diarrhea K58.0 ; Primary insomnia F51.01 ; Type 2 diabetes mellitus with hyperglycemia E11.65 and assisted current use of insulin Z79.4 [facility] [id number] [place] [address] 52051- 5925 March, [facility] [address] 34823- 4977 Jan, [facility] [address] 48578- 3302 Jan, [facility] [address] 85964- 4229 Jan, [facility] [address] 52346- 2433 Jan, [facility] [address] 16352- 0560 Jan, Dizziness R42 [facility] [id number] [place] [address] 10158- 3582 Jan, Bipolar affective disorder, currently depressed, mild F31.31 ; Panic disorder with agoraphobia F40.01 and Chronic post-traumatic stress disorder (PTSD) F43.12 [facility] [id number] [place] [address] 30071- 1987 Jan, Dizziness R42 [facility] [id number] [place] [address] 58559- 3000 Jan, Chest pain, unspecified type R07.9 ; Exertional dyspnea R06.09 ; Hypertension, unspecified type I10 and Hyperlipidemia, unspecified hyperlipidemia type E78.5 [facility] [id number] [place] [address] 52309- 3663 Jan, [facility] [id number] [place] [address] 42734- 1517 Jan, Lumbago M54.5 [facility] [id number] [place] [address] 38245- 8426 04 Jan, 2018 El's esophageal ulceration K22.10 ; Blister (nonthermal ) of oral cavity, initial encounter S00.522A ; Local infection of the skin and subcutaneous tissue, unspecified L08.9 ; Type 2 diabetes mellitus with hyperglycemia E11.65 ; assisted current use of insulin Z79.4 and Stress incontinence N39.3 [facility] [address] 95943- 8533 27 Dec, 2017 [facility] [address] 95058- 2495 27 Dec, 2017 [facility] [id number] [place] [address] 52720- 2915 19 Dec, 2017 [facility] [address] [id number] Dec, 2017 Dental examination Z01.20 [facility] [address] 10311- 6200 15 Dec, 2017 Acute pain of right knee M25.561 [facility] [address] 10506- 1327 14 Dec, 2017 [facility] [id number] [place] [address] 06172- 3350 14 Dec, 2017 [facility] [id number] [place] [address] 62091- 3579 14 Dec, 2017 Lumbago M54.5 ; Acute pain of right knee M25.561 and Seasonal allergic rhinitis due to other allergic trigger J30.89 [facility] [address] 46765- 7441 12 Dec, 2017 Type 2 diabetes mellitus with hyperglycemia E11.65 [facility] [address] 90407- 1131 08 Dec, 2017 [facility] [address] 36340- 9763 Dec, [facility] [address], [place] [address] 1897 Dec, [facility] [id number] [place] [address] 17360- 4733 Dec, [facility] [id number] [place] [address] 37437- 9183 Dec, Chronic post-traumatic stress disorder (PTSD) F43.12 and Panic disorder with agoraphobia F40.01 [facility] [address] [place] [address] 18633- 1066 13 Dec, 2017 Low back pain M54.5 [facility] [id number] [place] [address] 06405- 8091 12 Dec, 2017 Type 2 diabetes mellitus with hyperglycemia E11.65 ; assisted current use of insulin Z79.4 ; Low back pain M54.5 ; Encounter for therapeutic drug level monitoring Z51.81 and Other chronic pain G89.29 [facility] [id number] [place] [address] 68066- 7566 09 Dec, 2017 Coughing R05 [facility] [id number] [place] [address] 96487- 9019 09 Dec, 2017 [facility] [address] [place] [address] [id number] 07 Dec, 2017 Dental examination Z01.20 [facility] [id number] [place] [address] 41769- 6606 Nov, Type 2 diabetes mellitus without complications E11.9 and Encounter for therapeutic drug level monitoring Z51.81 [facility] [id number] [place] [address] 41584- 0172 Nov, [facility] [id number] [place] [address] 73423- 3699 Oct, Type 2 diabetes mellitus without complications E11.9 [facility] [id number], [place] [address] 1931 Oct, Type 2 diabetes mellitus with hyperglycemia E11.65 [facility] [id number] [place] [address] 35104- 0565 Aug, Type 2 diabetes mellitus without complications E11.9 [facility] [id number] [place] [address] 87069- 7166 Aug, Type 2 diabetes mellitus without complications E11.9 ; Hypoglycemia E16.2 ; Lumbago M54.5 ; Stress incontinence of urine N39.3 and History of SC (myocardial infarction) I25.2 [facility] [id number] [place] [address] 65085- 4825 Jun, [facility] [id number] [place] [address] 89288- 8049 May, [facility] [id number] [place] [address] 65717- 3724 Apr, Panic disorder with agoraphobia F40.01 [facility] [id number] [place] [address] 31460- 5326 Apr, Panic disorder with agoraphobia F40.01 [facility] [id number] [place] [address] 69390- 8294 Apr, [facility] [address] [place] [address] 61687- 6159 March, Other chronic pain G89.29 [facility] [id number], [place] [address]- 3859 March, [facility] [address], [place] [address]- 9043 March, [facility] [id number] [place] [address] 37343- 3232 March, [facility] [address], [place] [address]- 1719 March, [facility] [address], [place] [address]- 6354 18 Mar, 2017 Type 2 diabetes mellitus without complications E11.9 [facility] [id number] [place] [address] 16221- 0553 16 Mar, 2017 Diarrhea, unspecified type R19.7 [facility] [id number] [place] [address] 52376- 0794 March, Bipolar 2 disorder F31.81 ; Chronic post-traumatic stress disorder (PTSD) F43.12 and Type 2 diabetes mellitus with hyperglycemia E11.65 [facility] [id number] [place] [address] 84369- 6848 March, [facility] [id number] [place] [address] 78064- 8874 March, [facility] [id number] [place] [address] 20153- 7925 March, Hypertension, benign I10 ; Type 2 diabetes mellitus with hyperglycemia E11.65 ; Hepatitis C B19.20 ; Gastritis and duodenitis K29.90 and Dysuria R30.0 [facility] [id number] [place] [address] 99200- 5439 March, Hypertension, benign I10 ; Type 2 diabetes mellitus with hyperglycemia E11.65 ; Hepatitis C B19.20 ; Gastritis and duodenitis K29.90 and Dysuria R30.0 [facility] [id number] [place] [address] 64880- 1359 March, Panic disorder with agoraphobia F40.01 ; Chronic post- traumatic stress disorder (PTSD) F43.12 ; Epilepsy G40.909 and Bipolar I disorder with mood-congruent psychotic features F31.9 [facility] [id number] [place] [address] 29020- 4177 March, [facility] [id number] [place] [address] 21250- 2237 March, Type 2 diabetes mellitus with hyperglycemia E11.65 [facility] [id number] [place] [address] 91901- 5321 18 Jan, 2017 Bipolar I disorder with duy F31.10 [facility] [id number] [place] [address] 16166- 6854 17 Jan, 2017 Bipolar 2 disorder F31.81 ; Chronic post-traumatic stress disorder (PTSD) F43.12 and Type 2 diabetes mellitus with hyperglycemia E11.65 [facility] [id number] [place] [address] 70008- 0804 17 Jan, 2017 [facility] [id number] [place] [address] 53555- 8388 Jan, [facility] [id number] [place] [address] 71533- 4226 14 Jan, 2017 Panic disorder with agoraphobia F40.01 [facility] [id number] [place] [address] 63451- 1305 13 Jan, 2017 Panic disorder with agoraphobia F40.01 ; Bipolar I disorder with mood-congruent psychotic features F31.9 ; Chronic post-traumatic stress disorder (PTSD) F43.12 and Epilepsy G40.909 [facility] [id number] [place] [address] 68793- 1909 Jan, [facility] [id number] [place] [address] 59721- 3845 Jan, [facility] [id number] [place] [address] 28725- 4740 10 Jan, 2017 Type 2 diabetes mellitus without complications E11.9 and Hypoglycemia E16.2 [facility] [id number] [place] [address] 48200- 6741 07 Jan, 2017 Type 2 diabetes mellitus without complications E11.9 ; Primary insomnia F51.01 and Hypertension, benign I10 [facility] [id number] [place] [address] 93493- 0195 06 Jan, 2017 [facility] [address] [id number] Jan, [facility] [address] [place] [address] 43417- 4106 Dec, Type 2 diabetes mellitus with hyperglycemia E11.65 [facility] [address] [place] [address] 86959- 0171 Dec, [facility] [id number] [place] [address] 58800- 5479 Dec, Bipolar 2 disorder F31.81 ; Panic disorder with agoraphobia F40.01 ; Chronic post-traumatic stress disorder (PTSD) F43.12 and Epilepsy G40.909 [facility] [id number] [place] [address] 05329- 7186 Dec, [facility] [id number] [place] [address] 62062- 8172 Dec, [facility] [id number] [place] [address] 76294- 4419 Dec, Bipolar 2 disorder F31.81 ; Panic disorder with agoraphobia F40.01 ; Chronic post-traumatic stress disorder (PTSD) F43.12 and Epilepsy G40.909 [facility] [address] [place] [address] 04883- 8909 Dec, [facility] [address] [place] [address] 41971- 6232 Dec, [facility] [id number] [place] [address] 99544- 7028 Dec, [facility] [address] [place] [address] 73964- 2892 Dec, Type 2 diabetes mellitus with hyperglycemia E11.65 ; assisted current use of insulin Z79.4 and Lumbago M54.5 [facility] [address] [place] [address] 49157- 9552 Dec, [facility] [id number] [place] [address] 75653- 0690 Dec, [facility] [id number] [place] [address] 84136- 0799 Dec, [facility] [id number] [place] [address] 66897 -6872 Dec, Pain of left leg M79.605 and Pain in right leg M79.604 [facility] [id number] [place] [address] 44918- 8367 Dec, [facility] [id number] [place] [address] 93576- 5128 Dec, Type 2 diabetes mellitus with hyperglycemia E11.65 [facility] [address] 81477- 5071 Dec, [facility] [address] 93076- 7485 Dec, Type 2 diabetes mellitus with hyperglycemia E11.65 ; assisted current use of insulin Z79.4 ; Vagina, candidiasis B37.3 and Other chronic pain G89.29 [facility] [id number] [place] [address] 95967- 7748 Nov, Panic disorder with agoraphobia F40.01 [facility] [id number] [place] [address] 24152- 5318 Nov, [facility] [id number] [place] [address] 56493- 3712 Nov, [facility] [id number] [place] [address] 37968- 0732 Nov, Hypoglycemia E16.2 [facility] [id number] [place] [address] 31253- 0032 Nov, [facility] [id number] [place] [address] 51454- 8155 Nov, [facility] [address] 78300- 2915 Nov, [facility] [address], [place] [address]- 5744 Nov, Type 2 diabetes mellitus with hyperglycemia E11.65 and assisted current use of insulin Z79.4 [facility] [address], [place] [address]- 3595 Nov, Panic disorder with agoraphobia F40.01 ; Bipolar 2 disorder F31.81 ; Chronic post-traumatic stress disorder (PTSD) F43.12 and Epilepsy G40.909 [facility] [address], [place] [address]- 9593 Nov, Panic disorder with agoraphobia F40.01 [facility] [address], [place] [address]- 7925 Oct, [facility] [id number] [place] [address] 57972- 1340 Oct, [facility] [address] [place] [address] 05706- 3460 Oct, Bipolar 2 disorder F31.81 ; Panic disorder with agoraphobia F40.01 and Mood disorder F39 [facility] [address], [place] [address]- 7347 Oct, Diabetes E11.9 ; Type 2 diabetes mellitus with hyperglycemia E11.65 and assisted current use of insulin Z79.4 [facility] [address], [place] [address]- 3837 Oct, [facility] [address], [place] [address]- 0707 Sep, [facility] [address] [place] [address] 34602- 7078 Sep, Bipolar 2 disorder F31.81 and Mood disorder F39 [facility] [address], [place] [address]- 3776 Sep, [facility] [address], [place] [address]- 5216 Sep, Uncontrolled type 2 diabetes mellitus without complication, without long-term current use of insulin E11.65 [facility] [address], [place] [address]- 9809 Sep, [facility] [id number] [place] [address] 40619- 1341 Sep, [facility] [id number] [place] [address] 90011- 1427 Sep, [facility] [id number] [place] [address] 38017- 6992 Sep, [facility] [id number] [place] [address] 71757- 8152 Sep, Bipolar 2 disorder F31.81 ; Chronic post-traumatic stress disorder (PTSD) F43.12 ; Panic disorder with agoraphobia F40.01 and Epilepsy G40.909 [facility] [address] [place] [address] 27932- 9243 11 Sep, 2016 Bipolar 2 disorder F31.81 ; PTSD (post-traumatic stress disorder) F43.10 and Panic disorder with agoraphobia F40.01 [facility] [address], [place] [address]- 4381 Sep, [facility] [id number] [place] [address] 96324- 1475 28 Aug, 2016 History of seizures Z87.898 ; Panic disorder with agoraphobia F40.01 and Bipolar 2 disorder F31.81 [facility] [address] [place] [address] 55252- 6187 Aug, [facility] [id number] [place] [address] 06980- 2190 17 Aug, 2016 [facility] [id number] [place] [address] 13055- 1776 Aug, [facility] [id number] [place] [address] 52098- 1747 Aug, [facility] [id number] [place] [address] [phone] Aug, [facility] [id number] [place] [address] [phone] Aug, [facility] [address] [phone] Aug, Hypoglycemia E16.2 and Bilateral impacted cerumen H61.23 [facility] [id number] [place] [address] [phone] Aug, [facility] [id number] [place] [address] [phone] Jul, [facility] [address] [id number] [place] [address] 91639- 4784 Jul, [facility] [id number] [place] [address] 24306- 2726 15 Jul, 2016 Bipolar 2 disorder F31.81 ; Panic disorder with agoraphobia F40.01 ; PTSD (post-traumatic stress disorder) F43.10 and Epilepsy G40.909 [facility] [id number] [place] [address] 28951- 3345 Jul, [facility] [id number] [place] [address] 25854- 7795 Jul, Type 2 diabetes mellitus without complications E11.9 and Coughing R05 [facility] [id number] [place] [address] 74928- 3537 Jul, [facility] [id number] [place] [address] 12263- 8848 Jun, [facility] [id number] [place] [address] 75012- 4394 Jun, Bipolar 2 disorder F31.81 ; PTSD (post-traumatic stress disorder) F43.10 and Panic disorder with agoraphobia F40.01 [facility] [address], [place] [address] 4005 Jun, [facility] [id number] [place] [address] 58454- 5724 Jun, [facility] [id number] [place] [address] 92819- 7670 Jun, [facility] [id number] [place] [address] 36073- 6911 Jun, Type 2 diabetes mellitus without complications E11.9 and COPD (chronic obstructive pulmonary disease) J44.9 [facility] [id number] [place] [address] [id number] May, Dental examination Z01.20 and Dental caries K02.9 [place] [id number] [place] [address] 09734- 0244 May, Bipolar 2 disorder F31.81 ; PTSD (post-traumatic stress disorder) F43.10 and Panic disorder with agoraphobia F40.01 [place] [id number] [place] [address] 63537- 4306 May, Lumbago with sciatica, right side M54.41 ; Other chronic pain G89.29 and Uncontrolled type 2 diabetes mellitus without complication, without long-term current use of insulin E11.65 [facility] [id number] [place] [address] 09842- 7718 May, Chronic bronchitis, unspecified chronic bronchitis type J42 [facility] [id number] [place] [address] 96148- 3196 May, [facility] [id number] [place] [address] 36126- 0906 May, [facility] [address] [place] [address] 41193- 8699 May, Chest pain, unspecified type R07.9 ; [...] and Bipolar 2 disorder F31.81 [place] [address] 86726- 5171 May, Bipolar 2 disorder F31.81 ; Panic disorder with agoraphobia F40.01 and Tobacco abuse Z72.0 [place] [address] 95925- 2050 Apr, [facility] [id number] [place] [address] 19250- 0150 Apr, [place] [address] 41012- 8513 Apr, [place] [id number] [place] [address] 76759- 3508 Apr, Bipolar 2 disorder F31.81 ; Panic disorder with agoraphobia F40.01 and PTSD (post-traumatic stress disorder) F43.10 [place] [id number] [place] [address] 05478- 7267 Apr, Chronic bronchitis, unspecified chronic bronchitis type J42 ; Cervical neuritis M54.12 and Thoracic neuritis M54.14 [facility] [id number] [place] [address] 67904- 5414 Apr, [place] [id number] [place] [address] 06129- 5319 Apr, Cervicalgia M54.2 [place] [id number] [place] [address] 87102- 2371 Apr, Bipolar 2 disorder F31.81 ; Panic disorder with agoraphobia F40.01 and PTSD (post-traumatic stress disorder) F43.10 [facility] [address] [place] [address] 19844 -5986 13 Apr, 2016 [facility] [id number] [place] [address] 73982 -5959 09 Apr, 2016 Cough R05 and Tobacco dependence F17.200 [facility] [id number] [place] [address] 52395- 2037 Apr, [facility] [address] 05058- 4550 Apr, [facility] [id number] [place] [address] 75496- 3861 March, Bipolar 2 disorder F31.81 ; Panic disorder with agoraphobia F40.01 and Generalized anxiety disorder F41.1 [place] [id number] [place] [address] 94369- 8306 March, Closed displaced fracture of fifth metatarsal bone of right foot with routine healing, subsequent encounter S92.351D [place] [id number] [place] [address] 63682- 0993 March, Bronchitis J40 [facility] [id number] [place] [address] 85250- 2821 March, [facility] [id number] [place] [address] 00904- 3600 March, [facility] [facility] [id number] [place] [address] 55122- 9363 March, Foot pain, right M79.671 ; Cervicalgia M54.2 and Controlled type 2 diabetes mellitus without complication, unspecified senior care insulin use status E11.9 [place] [id number] [place] [address] 58301- 0542 March, Fracture of fifth metatarsal bone of right foot S92.351A [facility] [id number] [place] [address] 19449- 0550 March, [facility] [id number] [place] [address] 85910- 2881 Jan, Fracture of fifth metatarsal bone of right foot S92.351A [place] [id number] [place] [address] 14540- 9563 Jan, Bipolar 2 disorder F31.81 ; PTSD (post-traumatic stress disorder) F43.10 ; Panic disorder with agoraphobia F40.01 and Epilepsy G40.909 [place] [address] 44968- 5538 Jan, History of SC (myocardial infarction) I25.2 and History of high cholesterol Z86.39 [place] [address] 61195- 0935 Jan, Bipolar 2 disorder F31.81 ; Panic disorder with agoraphobia F40.01 ; Tobacco abuse Z72.0 and PTSD (post-traumatic stress disorder) F43.10 [place] [address] 63420- 8087 Jan, Fracture of fifth metatarsal bone of right foot S92.351A [place] [address] 45835- 9421 Jan, [place] [address] 69552- 8496 Jan, History of high cholesterol Z86.39 [facility] [id number] [place] [address] 08838- 9435 Jan, History of SC (myocardial infarction) I25.2 [place] [id number] [place] [address] 32465- 1348 Jan, [place] [address] 03587- 0029 Dec, Back pain M54.9 ; Diabetes E11.9 ; Right knee pain M25.561 and Chest pain R07.9 [place] [address] [place] [address]- 3088 Dec, [facility] [address] 45005- 3860 Dec, [place] [address] 96004- 0791 Dec, Cervicalgia M54.2 [place] [address] 15855- 4487 Dec, Bipolar 2 disorder F31.81 ; PTSD (post-traumatic stress disorder) F43.10 ; Panic disorder with agoraphobia F40.01 and Epilepsy G40.909 [place] [address] 83612- 9815 Dec, Bipolar 2 disorder F31.81 ; PTSD (post-traumatic stress disorder) F43.10 and Panic disorder with agoraphobia F40.01 [place] [address] 16192- 8740 Dec, Diabetes E11.9 [place] [address] 68936- 8292 Dec, [place] [address] 15459- 6263 Dec, Other chronic pain G89.29 ; Hepatitis C B19.20 and History of seizures Z87.898 [place] [id number] [place] [address] 31967- 1496 Dec, [place] [address] 46435- 0411 Dec, Bipolar 2 disorder F31.81 and Other chronic pain G89.29 [place] [address] 50672- 7551 Dec, Cervicalgia M54.2 and Diabetes E11.9 [place] [address] 58500- 7702 Dec, [facility] [id number] [place] [address] 53678- 1685 Dec, [facility] [id number] [place] [address] 50570- 6164 Dec, [facility] [id number] [place] [address] 27269- 5342 Dec, [facility] [address] 72180- 6388 Dec, Type 2 diabetes mellitus without complications E11.9 [place] [address] 37293- 6817 10 Dec, 2015 [facility] [address] 12664- 1223 Dec, History of seizures Z87.898 and Hepatitis C B19.20 [place] [address] 16397- 7065 08 Dec, 2015 Hepatitis C B19.20 [place] [id number] [place] [address] 88850- 8080 Dec, [place] [id number] [place] [address] 16204- 0247 Dec, Cervicalgia M54.2 ; COPD (chronic obstructive pulmonary disease) J44.9 and Hepatitis C B19.20 [place] [id number] [place] [address] 61851- 8214 Dec, Bipolar 2 disorder F31.81 ; History of hypertension Z86.79 ; History of anxiety Z86.59 ; Panic disorder with agoraphobia F40.01 and Epilepsy G40.909 [place] [id number] [place] [address] 82926- 9646 Nov, [place] [id number] [place] [address] 74213- 3864 Nov, [facility] [id number] [place] [address] 15150- 5353 19 Nov, 2015 History of seizures Z87.898 ; OAB (overactive bladder) N32.81 ; Lumbago M54.5 ; Other chronic pain G89.29 ; Cervicalgia M54.2 ; Tobacco abuse Z72.0 ; Tobacco abuse counseling Z71.6 and Impaired fasting glucose R73.01 [place] [address] 29163- 6757 Nov, Bipolar 2 disorder F31.81 ; PTSD (post-traumatic stress disorder) F43.10 ; History of anxiety Z86.59 ; History of COPD Z87.09 ; Panic disorder with agoraphobia F40.01 and Moderate depressed bipolar I disorder F31.[address] 21115- 1232 12 Nov, 2015 PTSD (post-traumatic stress disorder) F43.10 [facility] [address] [id number] Nov, Dental examination Z01.20 and Dental caries K02.[address] 44342- 7719 Nov, History of hypertension Z86.79 ; History of hypothyroidism Z86.39 ; History of high cholesterol Z86.39 ; History of COPD Z87.09 and Overactive bladder N32.81 [place] [id number] [place] [address] 31317- 1341 Nov, Bipolar 2 disorder F31.81 and PTSD (post-traumatic stress disorder) F43.10 [place] [id number] [place] [address] 81070- 7360 Nov, PTSD (post-traumatic stress disorder) F43.10 ; Panic disorder with agoraphobia F40.01 ; Epilepsy G40.909 and Moderate depressed bipolar I disorder F31.32 [place] [id number] [place] [address] 14421- 3780 Nov, [place] [address], [place] [address]- 4518 Nov, [place] [address] [place] [address] 31842- 2234 Oct, [place] [address], [place] [address]- 0369 Oct, Generalized anxiety disorder F41.1 ; Major depression, recurrent F33.9 and PTSD (post-traumatic stress disorder) F43.10 [place] [address], [place] [address]- 5763 Oct, Elevated fasting glucose R73.01 [id number] [place] [address] 11865- 2515 Oct, Elevated fasting glucose R73.01 [place] [address] [place] [address] 65476- 3600 Oct, History of COPD Z87.09 [place] [address], [place] [address]- 8643 Oct, General medical exam Z00.00 ; History of hypertension Z86.79 ; History of hypothyroidism Z86.39 ; History of hepatitis Z86.19 ; History of high cholesterol Z86.39 and History of seizures Z87.898 [place] [id number] [address]- 7097 Oct, General medical exam Z00.00 ; History of hypertension Z86.79 ; History of hypothyroidism Z86.39 ; Bipolar 2 disorder F31.81 ; PTSD ( post-traumatic stress disorder) F43.10 ; History of hepatitis Z86.19 ; History of high cholesterol Z86.39 ; History of anxiety Z86.59 ; History of seizures Z87.898 ; History of SC (myocardial infarction) I25.2 and History of COPD Z87.09 [place] [address], [place] [address]- 4084 Oct, Generalized anxiety disorder F41.1 ; Depression F32.9 and PTSD (post-traumatic stress disorder) F43.10 [facility] [address] [facility] [id number] [address]- 4958 Jan, [facility] [id number] [address]- 5976 Jan, [facility] [address], [place] [address]- 9296 Jun, [place] [address] [place] [id number] Jun, [facility] [id number] [place] [address]- 9168 May, [facility] [address], [place] [address]- 2962 May, [place] [address] [place] [id number] May, [facility] [address], [place] [address]- 1831 May, [place] [place] [id number] May, [facility] [id number] [address]- 6478 May, IMMUNIZATIONS No Known Immunizations SOCIAL HISTORY Never Assessed REASON FOR VISIT med request PLAN OF CARE VITAL SIGNS MEDICATIONS Medication Instructions Dosage Frequency Start Date End Date Duration Status Bactrim DS 800-160 MG Orally Twice a day 1 tablet 12h Dec, Jan, 10 day(s) Active RESULTS No Results PROCEDURES No [...]
--- OUTSIDE RECORDS SUMMARY | 2019-01-26 08:19 | XMS REPORT ---
Author Author GERARDO KISER [facility] Address [address] [place] [address] Care Team Providers Care Vehicle And Equipment Cleaner Name Role Phone MARGI GERARDO Unavailable PROBLEMS Type Condition ICD9-CM Code AZC21-IB Code Onset Dates Condition Status SNOMED Code Problem OAB (overactive bladder) N32.81 Active 726459255 Problem Epilepsy G40.909 Active 66694094 Problem Cervicalgia M54.2 Active 13374335 Problem Other chronic pain G89.29 Active 71391605 Problem Tobacco abuse Z72.0 Active 70756362 Problem Lumbago M54.5 Active 354696580 Problem Hepatitis C B19.20 Active 58085984 Problem COPD (chronic obstructive pulmonary disease) J44.9 Active 29318814 Problem Diabetes E11.9 Active 48400967 Problem Bipolar I disorder with duy F31.10 Active 05796108 Problem Type 2 diabetes mellitus without complications E11.9 Active 794003492 Problem Stress incontinence of urine N39.3 Active 50223286 Problem Bilateral claudication of lower limb I73.9 Active 237990388 Problem Seasonal allergic rhinitis due to other allergic trigger J30.89 Active 407881037 Problem Hyperlipidemia, unspecified hyperlipidemia type E78.5 Active 11381091 Problem Hypertension, unspecified type I10 Active 10203670 Problem Chronic tension-type headache, not intractable G44.229 Active 384350301 Problem Controlled type 2 diabetes mellitus without complication, without long -term current use of insulin E11.9 Active 324892068 Problem Type 2 diabetes mellitus with hyperglycemia E11.65 Active 513856989 Problem Chronic post-traumatic stress disorder (PTSD) F43.12 Active 806093050 Problem History of hypothyroidism Z86.39 Active 871665713 Problem Hypoglycemia E16.2 Active 026313351 Problem El's esophageal ulceration K22.10 Active 028235060 Problem Bipolar affective disorder, currently depressed, mild F31.31 Active 287348844 Problem Irritable bowel syndrome with diarrhea K58.0 Active 989511336 Problem Stress incontinence N39.3 Active 56909920 Problem History of hypertension Z86.79 Active 988585455 Problem Uncontrolled type 2 diabetes mellitus without complication, without long-term current use of insulin E11.65 Active 086068618 Problem Panic disorder with agoraphobia F40.01 Active 53517788 Problem Type 2 diabetes mellitus with hyperglycemia E11.65 Active 656579052 Problem History of seizures Z87.898 Active 233133415 Problem FDC current use of insulin Z79.4 Active 047713518 Problem History of MO (myocardial infarction) I25.2 Active 515841808 Problem Mood disorder F39 Active 53873593 Problem Bipolar 2 disorder F31.81 Active 23256186 Problem Gastritis and duodenitis K29.90 Active 472343900 Problem History of high cholesterol Z86.39 Active 129085952 Problem Bipolar I disorder with mood-congruent psychotic features F31.9 Active 080253145 Problem Hypertension, benign I10 Active 10340108 Problem Primary insomnia F51.01 Active 9961515 ALLERGIES No Information ENCOUNTERS Encounter Location Date Diagnosis [facility] [id number] [place] [address] 60922- 6618 Jun, [facility] [id number] [place] [address] 24723- 8263 May, [facility] [id number] [place] [address] [id number] May, [facility] [id number] [place] [address] 28772- 4459 May, [facility] [id number] [place] [address] 99603- 2589 May, [facility] [id number] [place] [address] 85855- 6506 May, [facility] [id number] [place] [address] 54042- 1877 May, [facility] [id number] [place] [address] 78502- 5585 May, [facility] [address] [place] [address]- 4440 May, Lumbago M54.5 [facility] [address] 41824- 4041 May, [facility] [id number] [place] [address] 68817- 0194 Apr, Abnormal CT of the chest R93.8 [facility] [address] 87989- 0262 Apr, Bipolar 2 disorder F31.81 ; Chronic post-traumatic stress disorder (PTSD) F43.12 and Panic disorder with agoraphobia F40.01 [facility] [address] 79068- 6646 Apr, Abnormal CT of the chest R93.8 [facility] [address] 52819- [address] Apr, [address] of the chest R93.8 [facility] [id number] [place] [address] 13688- 7585 Apr, [facility] [address] 43292- 0616 Apr, Type 2 diabetes mellitus with hyperglycemia E11.65 [facility] [id number] [place] [address] 80397- 6965 Apr, Controlled type 2 diabetes mellitus without complication, without long-term current use of insulin E11.9 ; Watery eyes H04.203 ; Low back pain M54.5 ; Other chronic pain G89.29 ; Chronic tension-type headache, not intractable G44.229 ; Uncontrolled type 2 diabetes mellitus without complication , without long-term current use of insulin E11.65 and Bronchitis J40 [facility] [id number] [place] [address] 21030- 6175 Apr, [facility] [id number] [place] [address] 07826- 6557 Apr, Lumbago M54.5 [facility] [id number] [place] [address] 77493- 8111 March, [facility] [id number] [place] [address] 97972 -4423 March, Cough R05 ; Pneumonia due to infectious organism, unspecified laterality, unspecified part of lung J18.9 and Non-intractable vomiting with nausea, unspecified vomiting type R11.2 [facility] [id number] [place] [address] 12023- 5101 March, Bronchitis J40 [facility] [id number] [place] [address] 46767- 9984 March, [facility] [address] 71323- 9555 March, El's esophageal ulceration K22.10 and Type 2 diabetes mellitus with hyperglycemia E11.65 [facility] [id number] [place] [address] 34084- 4886 March, Panic disorder with agoraphobia F40.01 ; Chronic post- traumatic stress disorder (PTSD) F43.12 and Bipolar 2 disorder F31.81 [facility] [id number] [place] [address] 82608- 9380 March, Type 2 diabetes mellitus with hyperglycemia E11.65 [facility] [id number] [place] [address] 32611- 3966 March, [facility] [id number] [place] [address] 74696- 4798 March, Lumbago M54.5 [facility] [id number] [place] [address] 27999- 3836 March, [facility] [id number] [place] [address] 78401- 3786 March, Irritable bowel syndrome with diarrhea K58.0 ; Primary insomnia F51.01 ; Type 2 diabetes mellitus with hyperglycemia E11.65 and terminologist current use of insulin Z79.4 [facility] [address] [address] 8925 March, [facility] [id number] [place] [address] 93624- 6476 Jan, [facility] [id number] [place] [address] 90478- 0186 Jan, [facility] [id number] [place] [address] 24670- 3803 Jan, [facility] [id number] [place] [address] 21217- 0310 Jan, [facility] [id number] [place] [address] 76125- 9679 Jan, Dizziness R42 [facility] [id number] [place] [address] 69123- 7669 Jan, Bipolar affective disorder, currently depressed, mild F31.31 ; Panic disorder with agoraphobia F40.01 and Chronic post-traumatic stress disorder (PTSD) F43.12 [facility] [id number] [place] [address] 84451- 0703 Jan, Dizziness R42 [facility] [id number] [place] [address] 92615- 1303 Jan, Chest pain, unspecified type R07.9 ; Exertional dyspnea R06.09 ; Hypertension, unspecified type I10 and Hyperlipidemia, unspecified hyperlipidemia type E78.5 [facility] [address] [address]- 3641 Jan, [facility] [id number] [place] [address] 69766- 0685 Jan, Lumbago M54.5 [facility] [address] [address] 4060 Jan, El's esophageal ulceration K22.10 ; Blister (nonthermal ) of oral cavity, initial encounter S00.522A ; Local infection of the skin and subcutaneous tissue, unspecified L08.9 ; Type 2 diabetes mellitus with hyperglycemia E11.65 ; terminologist current use of insulin Z79.4 and Stress incontinence N39.3 [facility] [id number] [place] [address] 16046- 9113 27 Dec, 2017 [facility] [id number] [place] [address] 41713- 3474 27 Dec, 2017 [facility] [id number] [place] [address] 30423- 5166 19 Dec, 2017 [facility] [id number] [place] [address] [id number] 16 Dec, 2017 Dental examination Z01.20 [facility] [id number] [place] [address] 22192- 9730 15 Dec, 2017 Acute pain of right knee M25.561 [facility] [id number] [place] [address] 61016- 6938 14 Dec, 2017 [facility] [id number] [place] [address] 86592- 3355 14 Dec, 2017 [facility] [id number] [place] [address] 37540- 6835 14 Dec, 2017 Lumbago M54.5 ; Acute pain of right knee M25.561 and Seasonal allergic rhinitis due to other allergic trigger J30.89 [facility] [id number] [place] [address] 27195- 8135 Dec, Type 2 diabetes mellitus with hyperglycemia E11.65 [facility] [id number] [place] [address] 20300- 8501 Dec, [facility] [id number] [place] [address] 21681- 1530 Dec, [facility] [id number] [place] [address] 20647- 6978 Dec, [facility] [id number] [place] [address] 37279- 3851 15 Dec, 2017 [facility] [id number] [place] [address] 08606- 8685 15 Dec, 2017 Chronic post-traumatic stress disorder (PTSD) F43.12 and Panic disorder with agoraphobia F40.01 [facility] [id number] [place] [address] 80909- 9021 13 Dec, 2017 Low back pain M54.5 [facility] [id number] [place] [address] 67097- 1740 12 Dec, 2017 Type 2 diabetes mellitus with hyperglycemia E11.65 ; FDC current use of insulin Z79.4 ; Low back pain M54.5 ; Encounter for therapeutic drug level monitoring Z51.81 and Other chronic pain G89.29 [facility] [id number] [place] [address] 33318- 8643 09 Dec, 2017 Coughing R05 [facility] [id number] [place] [address] 59419- 3625 09 Dec, 2017 [facility] [id number] [place] [address] [id number] 07 Dec, 2017 Dental examination Z01.20 [facility] [id number] [place] [address] 75613- 6889 Nov, Type 2 diabetes mellitus without complications E11.9 and Encounter for therapeutic drug level monitoring Z51.81 [facility] [id number] [place] [address] 43876- 9859 Nov, [facility] [id number] [place] [address] 64975- 3905 Oct, Type 2 diabetes mellitus without complications E11.9 [facility] [id number] [place] [address] 07969- 6168 Oct, Type 2 diabetes mellitus with hyperglycemia E11.65 [facility] [id number] [place] [address] 61067- 9173 Aug, Type 2 diabetes mellitus without complications E11.9 [facility] [address] [address]- 7694 Aug, Type 2 diabetes mellitus without complications E11.9 ; Hypoglycemia E16.2 ; Lumbago M54.5 ; Stress incontinence of urine N39.3 and History of MO (myocardial infarction) I25.2 [facility] [id number] [place] [address] 38081- 5236 Jun, [facility] [id number] [place] [address] 57086- 4788 May, [facility] [id number] [place] [address] 83704- 9389 Apr, Panic disorder with agoraphobia F40.01 [facility] [id number] [place] [address] 07074- 9131 Apr, Panic disorder with agoraphobia F40.01 [facility] [id number] [place] [address] 83848- 7290 Apr, [facility] [id number] [place] [address] 70020- 1369 March, Other chronic pain G89.29 [facility] [id number] [address]- 2310 March, [facility] [address] [address]- 0630 March, [facility] [address] [address]- 4190 March, [facility] [id number] [address]- 6829 March, [facility] [id number] [address]- 7366 March, Type 2 diabetes mellitus without complications E11.9 [facility] [id number] [address]- 8126 March, Diarrhea, unspecified type R19.7 [facility] [id number] [place] [address] 88010- 3423 March, Bipolar 2 disorder F31.81 ; Chronic post-traumatic stress disorder (PTSD) F43.12 and Type 2 diabetes mellitus with hyperglycemia E11.65 [facility] [id number] [place] [address] 86776- 9205 March, [facility] [id number] [place] [address] 79222- 2336 March, [facility] [id number] [place] [address] 49367- 1007 March, Hypertension, benign I10 ; Type 2 diabetes mellitus with hyperglycemia E11.65 ; Hepatitis C B19.20 ; Gastritis and duodenitis K29.90 and Dysuria R30.0 [facility] [id number] [place] [address] 65885- 2029 March, Hypertension, benign I10 ; Type 2 diabetes mellitus with hyperglycemia E11.65 ; Hepatitis C B19.20 ; Gastritis and duodenitis K29.90 and Dysuria R30.0 [facility] [id number] [place] [address] 71367- 0442 March, Panic disorder with agoraphobia F40.01 ; Chronic post- traumatic stress disorder (PTSD) F43.12 ; Epilepsy G40.909 and Bipolar I disorder with mood-congruent psychotic features F31.9 [facility] [id number] [place] [address] 19358- 4746 March, [facility] [id number] [place] [address] 15244- 4877 March, Type 2 diabetes mellitus with hyperglycemia E11.65 [facility] [id number] [place] [address] 88164- 5762 Jan, Bipolar I disorder with duy F31.10 [facility] [id number] [place] [address] 12143- 8857 17 Jan, 2017 Bipolar 2 disorder F31.81 ; Chronic post-traumatic stress disorder (PTSD) F43.12 and Type 2 diabetes mellitus with hyperglycemia E11.65 [facility] [id number] [place] [address] 16771- 1589 17 Jan, 2017 [facility] [id number] [place] [address] 79650- 5761 17 Jan, 2017 [facility] [id number] [place] [address] 85858- 1175 14 Jan, 2017 Panic disorder with agoraphobia F40.01 [facility] [id number] [place] [address] 65312- 9113 13 Jan, 2017 Panic disorder with agoraphobia F40.01 ; Bipolar I disorder with mood-congruent psychotic features F31.9 ; Chronic post-traumatic stress disorder (PTSD) F43.12 and Epilepsy G40.909 [facility] [id number] [place] [address] 44772- 4562 Jan, [facility] [id number] [place] [address] 84588- 8011 Jan, [facility] [id number] [place] [address] 54090- 1312 10 Jan, 2017 Type 2 diabetes mellitus without complications E11.9 and Hypoglycemia E16.2 [facility] [address] [place] [address] 08667- 0420 Jan, Type 2 diabetes mellitus without complications E11.9 ; Primary insomnia F51.01 and Hypertension, benign I10 [facility] [id number] [place] [address] 31322- 2724 06 Jan, 2017 [facility] [id number] [place] [address] [id number] Jan, [facility] [id number] [place] [address] 02996- 0110 Dec, Type 2 diabetes mellitus with hyperglycemia E11.65 [facility] [id number] [place] [address] 06280- 8801 Dec, [facility] [id number] [place] [address] 27874- 8357 Dec, Bipolar 2 disorder F31.81 ; Panic disorder with agoraphobia F40.01 ; Chronic post-traumatic stress disorder (PTSD) F43.12 and Epilepsy G40.909 [facility] [id number] [place] [address] 25040- 1102 Dec, [facility] [id number] [place] [address] 70589- 2956 Dec, [facility] [id number] [place] [address] 11133- 3326 Dec, Bipolar 2 disorder F31.81 ; Panic disorder with agoraphobia F40.01 ; Chronic post-traumatic stress disorder (PTSD) F43.12 and Epilepsy G40.909 [facility] [id number] [place] [address] 33023- 4549 Dec, [facility] [id number] [place] [address] 38898- 3368 Dec, [facility] [id number] [place] [address] 90229- 9252 Dec, [facility] [id number] [place] [address] 35721- 1982 Dec, Type 2 diabetes mellitus with hyperglycemia E11.65 ; FDC current use of insulin Z79.4 and Lumbago M54.5 [facility] [id number] [place] [address] 88559- 7818 Dec, [facility] [id number] [place] [address] 41822- 8260 Dec, [facility] [id number] [place] [address] 15547- 2911 Dec, [facility] [id number] [place] [address] 51861 -2967 22 Dec, 2016 Pain of left leg M79.605 and Pain in right leg M79.604 [facility] [id number] [place] [address] 23489- 8731 14 Dec, 2016 [facility] [address] 02516- 8860 Dec, Type 2 diabetes mellitus with hyperglycemia E11.65 [facility] [address] 66914- 1533 Dec, [facility] [address] 08630- 3556 Dec, Type 2 diabetes mellitus with hyperglycemia E11.65 ; FDC current use of insulin Z79.4 ; Vagina, candidiasis B37.3 and Other chronic pain G89.29 [facility] [address] 39980- 5141 Nov, Panic disorder with agoraphobia F40.01 [facility] [id number] [place] [address] 07208- 5259 Nov, [facility] [id number] [place] [address] 06958- 5193 Nov, [facility] [id number] [place] [address] 59958- 5371 Nov, Hypoglycemia E16.2 [facility] [id number] [place] [address] 19091- 3538 Nov, [facility] [id number] [place] [address] 88986- 0261 Nov, [facility] [address] 11579- 1903 Nov, [facility] [id number] [place] [address] 82314- 5408 Nov, Type 2 diabetes mellitus with hyperglycemia E11.65 and FDC current use of insulin Z79.4 [facility] [address] [address]- 3047 Nov, Panic disorder with agoraphobia F40.01 ; Bipolar 2 disorder F31.81 ; Chronic post-traumatic stress disorder (PTSD) F43.12 and Epilepsy G40.909 [facility] [address] [address]- 0294 Nov, Panic disorder with agoraphobia F40.01 [facility] [id number] [address]- 6208 Oct, [facility] [id number] [place] [address] 08113- 6422 Oct, [facility] [id number] [place] [address] 51754- 3661 Oct, Bipolar 2 disorder F31.81 ; Panic disorder with agoraphobia F40.01 and Mood disorder F39 [facility] [id number] [place] [address] 82530- 2944 Oct, Diabetes E11.9 ; Type 2 diabetes mellitus with hyperglycemia E11.65 and terminologist current use of insulin Z79.4 [facility] [address] [address]- 1086 Oct, [facility] [address] [address]- 6821 Sep, [facility] [address] [address]- 6634 Sep, Bipolar 2 disorder F31.81 and Mood disorder F39 [facility] [address] [address]- 1870 Sep, [facility] [address] [address]- 8923 Sep, Uncontrolled type 2 diabetes mellitus without complication, without long-term current use of insulin E11.65 [facility] [id number] [address]- 3717 Sep, [facility] [id number] [place] [address] 92128- 8309 Sep, [facility] [address] [address]- 9596 Sep, [facility] [id number] [place] [address] 10938- 1312 Sep, [facility] [id number] [place] [address] 83168- 4415 Sep, Bipolar 2 disorder F31.81 ; Chronic post-traumatic stress disorder (PTSD) F43.12 ; Panic disorder with agoraphobia F40.01 and Epilepsy G40.909 [facility] [address] [address]- 0111 Sep, Bipolar 2 disorder F31.81 ; PTSD (post-traumatic stress disorder) F43.10 and Panic disorder with agoraphobia F40.01 [facility] [address] [address]- 0192 Sep, [facility] [id number] [place] [address] 23401- 1847 28 Aug, 2016 History of seizures Z87.898 ; Panic disorder with agoraphobia F40.01 and Bipolar 2 disorder F31.81 [facility] [address] [address]- 1601 Aug, [facility] [address] [address]- 4633 17 Aug, 2016 [facility] [id number] [place] [address] 38835- 5743 Aug, [facility] [address] [address]- 0031 Aug, [facility] [id number] [place] [address] 78363- 7428 Aug, [facility] [id number] [address]- 9121 Aug, [facility] [id number] [place] [id number] Aug, Hypoglycemia E16.2 and Bilateral impacted cerumen H61.23 [facility] [id number] [place] [address]- [address] Aug, [facility] [id number] [place] [address]- [address] Jul, [facility] [id number] [place] [address]- [address] Jul, [facility] [id number] [place] [id number] 15 Jul, 2016 Bipolar 2 disorder F31.81 ; Panic disorder with agoraphobia F40.01 ; PTSD (post-traumatic stress disorder) F43.10 and Epilepsy G40.909 [facility] [id number] [place] [address]- 2731 Jul, [facility] [id number] [place] [id number]- [id number] Jul, 2016 Type 2 diabetes mellitus without complications E11.9 and Coughing R05 [facility] [id number] [place] [address] 69299- 5599 Jul, [facility] [id number] [place] [address] 36630- 4218 Jun, [facility] [id number] [place] [address] 69739- 2208 Jun, Bipolar 2 disorder F31.81 ; PTSD (post-traumatic stress disorder) F43.10 and Panic disorder with agoraphobia F40.01 [facility] [id number] [place] [address] 29911- 0413 Jun, [facility] [id number] [place] [address] Jun, [facility] [id number] [place] [address] 36059- 4619 Jun, [facility] [id number] [place] [address] 34158- 9936 Jun, Type 2 diabetes mellitus without complications E11.9 and COPD (chronic obstructive pulmonary disease) J44.9 [facility] [id number] [place] [address] [id number] May, Dental examination Z01.20 and Dental caries K02.9 [place] [address] 13467- 1903 May, Bipolar 2 disorder F31.81 ; PTSD (post-traumatic stress disorder) F43.10 and Panic disorder with agoraphobia F40.01 [place] [address] 91692- 7856 May, Lumbago with sciatica, right side M54.41 ; Other chronic pain G89.29 and Uncontrolled type 2 diabetes mellitus without complication, without long-term current use of insulin E11.65 [facility] [id number] [place] [address] 06748- 1194 May, Chronic bronchitis, unspecified chronic bronchitis type J42 [facility] [id number] [place] [address] 18789- 0471 May, [facility] [id number] [place] [address] 54792- 5476 May, [facility] [id number] [place] [address] 10495- 0073 May, Chest pain, unspecified type R07.9 ; Tobacco use Z72.0 ; Type 2 diabetes mellitus without complications E11.9 ; Essential hypertension I10 ; Hyperlipidemia, unspecified hyperlipidemia type E78.5 ; Obesity (BMI 30- 39.9) E66.9 ; History of hypothyroidism Z86.39 ; Chronic obstructive pulmonary disease, unspecified COPD type J44.9 ; Anxiety F41.9 ; Bilateral claudication of lower limb I73.9 and Bipolar 2 disorder F31.81 [place] [address] 41798- 2542 05 May, 2016 Bipolar 2 disorder F31.81 ; Panic disorder with agoraphobia F40.01 and Tobacco abuse Z72.0 [place] [address] 93913- 2921 Apr, [place] [address] 35649- 3209 Apr, [place] [address] 10166- 4002 Apr, [place] [address] 51683- 8834 Apr, Bipolar 2 disorder F31.81 ; Panic disorder with agoraphobia F40.01 and PTSD (post-traumatic stress disorder) F43.10 [facility] [id number] [place] [address] 51726- 3903 Apr, Chronic bronchitis, unspecified chronic bronchitis type J42 ; Cervical neuritis M54.12 and Thoracic neuritis M54.14 [facility] [id number] [place] [address] 83408- 7947 Apr, [facility] [id number] [place] [address] 88647- 6735 Apr, Cervicalgia M54.2 [facility] [id number] [place] [address] 21104- 6439 14 Apr, 2016 Bipolar 2 disorder F31.81 ; Panic disorder with agoraphobia F40.01 and PTSD (post-traumatic stress disorder) F43.10 [facility] [id number] [place] [address] 15181 -0021 13 Apr, 2016 [facility] [id number] [place] [address] 15350 -3658 Apr, Cough R05 and Tobacco dependence F17.200 [place] [facility] [id number] [place] [address] 37343- 8819 Apr, [facility] [id number] [place] [address] 31802- 5172 Apr, [facility] [id number] [place] [address] 93617- 8353 March, Bipolar 2 disorder F31.81 ; Panic disorder with agoraphobia F40.01 and Generalized anxiety disorder F41.1 [facility] [id number] [place] [address] 85765- 2377 March, Closed displaced fracture of fifth metatarsal bone of right foot with routine healing, subsequent encounter S92.351D [facility] [id number] [place] [address] 91900- 2614 March, Bronchitis J40 [facility] [facility] [id number] [place] [address] 05018- 8905 March, [facility] [id number] [place] [address] 06369- 3617 March, [facility] [id number] [place] [address] 27464- 9669 March, Foot pain, right M79.671 ; Cervicalgia M54.2 and Controlled type 2 diabetes mellitus without complication, unspecified detention insulin use status E11.9 [facility] [facility] [id number] [place] [address] 33185- 7230 March, Fracture of fifth metatarsal bone of right foot S92.351A [facility] [facility] [id number] [place] [address] 26892- 5828 March, [facility] [id number] [place] [address] 31382- 1813 Jan, Fracture of fifth metatarsal bone of right foot S92.351A [facility] [id number] [place] [address] 85089- 8825 Jan, Bipolar 2 disorder F31.81 ; PTSD (post-traumatic stress disorder) F43.10 ; Panic disorder with agoraphobia F40.01 and Epilepsy G40.909 [facility] [id number] [place] [address] 71195- 2151 Jan, History of MO (myocardial infarction) I25.2 and History of high cholesterol Z86.39 [place] [address] 70465- 4947 Jan, Bipolar 2 disorder F31.81 ; Panic disorder with agoraphobia F40.01 ; Tobacco abuse Z72.0 and PTSD (post-traumatic stress disorder) F43.10 [facility] [facility] [id number] [place] [address] 86991- 6786 Jan, Fracture of fifth metatarsal bone of right foot S92.351A [place] [address] 27689- 7518 Jan, [place] [address] 07744- 0182 Jan, History of high cholesterol Z86.39 [facility] [id number] [place] [address] 65657- 9218 Jan, History of MO (myocardial infarction) I25.2 [facility] [facility] [id number] [place] [address] 13969- 3564 Jan, [facility] [id number] [place] [address] 47258- 2690 Dec, Back pain M54.9 ; Diabetes E11.9 ; Right knee pain M25.561 and Chest pain R07.9 [place] [address] 63969- 9851 Dec, [facility] [id number] [place] [address] 70687- 1786 Dec, [place] [facility] [id number] [place] [address] 72487- 4569 Dec, Cervicalgia M54.2 [place] [address] 28755- 0149 Dec, Bipolar 2 disorder F31.81 ; PTSD (post-traumatic stress disorder) F43.10 ; Panic disorder with agoraphobia F40.01 and Epilepsy G40.909 [place] [address] 35303- 5081 Dec, Bipolar 2 disorder F31.81 ; PTSD (post-traumatic stress disorder) F43.10 and Panic disorder with agoraphobia F40.01 [place] [address] 78775- 5930 Dec, Diabetes E11.[address] 61028- 9267 Dec, [place] [address] 41876- 4611 Dec, Other chronic pain G89.29 ; Hepatitis C B19.20 and History of seizures Z87.898 [facility] [id number] [place] [address] 71421- 1483 Dec, [facility] [id number] [place] [address] 16910- 9564 Dec, Bipolar 2 disorder F31.81 and Other chronic pain G89.29 [place] [id number] [place] [address] 70528- 0641 Dec, Cervicalgia M54.2 and Diabetes E11.9 [place] [address] 28908- 3157 Dec, [facility] [id number] [place] [address] 50803- 8601 Dec, [place] [address] 20846- 1821 Dec, [facility] [id number] [place] [address] 75041- 7434 Dec, [facility] [id number] [place] [address] 08366- 8023 Dec, Type 2 diabetes mellitus without complications E11.9 [place] [address] 02627- 1315 Dec, [place] [address] 28181- 9305 Dec, History of seizures Z87.898 and Hepatitis C B19.20 [place] [address] 07682- 5725 Dec, Hepatitis C B19.20 [place] [address] 67784- 8906 Dec, [place] [address] 23888- 7528 Dec, Cervicalgia M54.2 ; COPD (chronic obstructive pulmonary disease) J44.9 and Hepatitis C B19.20 [place] [facility] [id number] [place] [address] 22950- 1146 Dec, Bipolar 2 disorder F31.81 ; History of hypertension Z86.79 ; History of anxiety Z86.59 ; Panic disorder with agoraphobia F40.01 and Epilepsy G40.909 [place] [id number] [place] [address] 56989- 0321 Nov, [place] [address] 00052- 6082 Nov, [place] [id number] [place] [address] 47756- 8523 Nov, History of seizures Z87.898 ; OAB (overactive bladder) N32.81 ; Lumbago M54.5 ; Other chronic pain G89.29 ; Cervicalgia M54.2 ; Tobacco abuse Z72.0 ; Tobacco abuse counseling Z71.6 and Impaired fasting glucose R73.01 [facility] [address] [place] [address] 01333- 3965 Nov, Bipolar 2 disorder F31.81 ; PTSD (post-traumatic stress disorder) F43.10 ; History of anxiety Z86.59 ; History of COPD Z87.09 ; Panic disorder with agoraphobia F40.01 and Moderate depressed bipolar I disorder F31.[address] 34555- 1944 Nov, PTSD (post-traumatic stress disorder) F43.10 [facility] [address] [id number] Nov, Dental examination Z01.20 and Dental caries K02.[address] 29483- 2441 Nov, History of hypertension Z86.79 ; History of hypothyroidism Z86.39 ; History of high cholesterol Z86.39 ; History of COPD Z87.09 and Overactive bladder N32.[address] 07898- 0836 Nov, Bipolar 2 disorder F31.81 and PTSD (post-traumatic stress disorder) F43.[address] 91508- 8271 Nov, PTSD (post-traumatic stress disorder) F43.10 ; Panic disorder with agoraphobia F40.01 ; Epilepsy G40.909 and Moderate depressed bipolar I disorder F31.[address] 96159- 0721 Nov, [address] 97907- 1268 Nov, [address] 71709- 7113 Oct, [id number] [place] [address] 81724- 0398 Oct, Generalized anxiety disorder F41.1 ; Major depression, recurrent F33.9 and PTSD (post-traumatic stress disorder) F43.10 [address] [id number] [place] [address] 57625- 9448 Oct, Elevated fasting glucose R73.[address] 63750- 2803 Oct, Elevated fasting glucose R73.[address] 96210- 8644 Oct, History of COPD Z87.[address] 30346- 8236 Oct, General medical exam Z00.00 ; History of hypertension Z86.79 ; History of hypothyroidism Z86.39 ; History of hepatitis Z86.19 ; History of high cholesterol Z86.39 and History of seizures Z87.898 [id number] [place] [address] 75831- 2900 Oct, General medical exam Z00.00 ; History of hypertension Z86.79 ; History of hypothyroidism Z86.39 ; Bipolar 2 disorder F31.81 ; PTSD ( post-traumatic stress disorder) F43.10 ; History of hepatitis Z86.19 ; History of high cholesterol Z86.39 ; History of anxiety Z86.59 ; History of seizures Z87.898 ; History of MO (myocardial infarction) I25.2 and History of COPD Z87.09 [id number] [place] [address] 53989- 3035 Oct, Generalized anxiety disorder F41.1 ; Depression F32.9 and PTSD (post-traumatic stress disorder) F43.10 [id number] [place] [address] 32151- 8968 Jan, [place] [id number]- 2546 Jan, [facility] [address] [facility] [id number] [address]- 2546 Jun, [facility] [address] [place] [id number] Jun, [facility] [address] [facility] [id number] [address]- 2546 May, [facility] [address] [facility] [id number] [address]- 2546 May, [facility] [address] [place] [id number] May, [facility] [address] [id number] [address]- 2546 May, [place] [address] [place] [id number] May, [facility] [address] [facility] [id number] [address]- 2546 May, IMMUNIZATIONS No Known Immunizations SOCIAL HISTORY Never Assessed REASON FOR VISIT glucometer and test strips RX PLAN OF CARE VITAL SIGNS MEDICATIONS Medication Instructions Dosage Frequency Start Date End Date Duration Status Blood Glucose Monitor System w/Device DX- E11.9 Test fasting and 2 hours after meal test 3 times per day Dec, Active Blood Glucose Test Strip And [...] Medical History Hep C -2004 Medical History MO x 2 last in 2009 Medical History PTSD (post-traumatic stress disorder) Medical History Colon Cancer 2016 Medical History diabites II Surgical History tonsillectomy 1985 Surgical History partial hysterectomy 2004 Surgical History appendectomy 2004 Hospitalization History Surgery(s) only Hospitalization History pneumonia x3 days Hospitalization History Heart cath with stint 05/15/2016 Hospitalization History Diverticulitis, N/V-[facility] 01/28/17
--- OUTSIDE RECORDS SUMMARY | 2019-01-26 08:20 | XMS REPORT ---
Author Author STANISLAV KERN [facility] Address Unknown Care Team Providers Care Feed Management Advisor Name Role Phone STANISLAV KERN Unavailable PROBLEMS Type Condition ICD9-CM Code POL24-IE Code Onset Dates Condition Status SNOMED Code Problem OAB (overactive bladder) N32.81 Active 780427496 Problem Epilepsy G40.909 Active 27702541 Problem Cervicalgia M54.2 Active 00025975 Problem Other chronic pain G89.29 Active 65759951 Problem Tobacco abuse Z72.0 Active 12165707 Problem Lumbago M54.5 Active 445461604 Problem Hepatitis C B19.20 Active 34479081 Problem COPD (chronic obstructive pulmonary disease) J44.9 Active 40616023 Problem Diabetes E11.9 Active 81368538 Problem Bipolar I disorder with duy F31.10 Active 95002722 Problem Type 2 diabetes mellitus without complications E11.9 Active 909526685 Problem Stress incontinence of urine N39.3 Active 18449611 Problem Bilateral claudication of lower limb I73.9 Active 489549519 Problem Seasonal allergic rhinitis due to other allergic trigger J30.89 Active 443250290 Problem Hyperlipidemia, unspecified hyperlipidemia type E78.5 Active 98203753 Problem Hypertension, unspecified type I10 Active 78381472 Problem Chronic tension-type headache, not intractable G44.229 Active 065787864 Problem Controlled type 2 diabetes mellitus without complication, without long -term current use of insulin E11.9 Active 263010166 Problem Type 2 diabetes mellitus with hyperglycemia E11.65 Active 498178840 Problem Chronic post-traumatic stress disorder (PTSD) F43.12 Active 256321702 Problem History of hypothyroidism Z86.39 Active 610097146 Problem Hypoglycemia E16.2 Active 991322602 Problem El's esophageal ulceration K22.10 Active 150326381 Problem Bipolar affective disorder, currently depressed, mild F31.31 Active 918604130 Problem Irritable bowel syndrome with diarrhea K58.0 Active 151578087 Problem Stress incontinence N39.3 Active 17706110 Problem History of hypertension Z86.79 Active 776810921 Problem Uncontrolled type 2 diabetes mellitus without complication, without long-term current use of insulin E11.65 Active 023668528 Problem Panic disorder with agoraphobia F40.01 Active 09347109 Problem Type 2 diabetes mellitus with hyperglycemia E11.65 Active 006060726 Problem History of seizures Z87.898 Active 028931955 Problem custodial current use of insulin Z79.4 Active 512999230 Problem History of WV (myocardial infarction) I25.2 Active 626236599 Problem Mood disorder F39 Active 41261431 Problem Bipolar 2 disorder F31.81 Active 97922218 Problem Gastritis and duodenitis K29.90 Active 048718819 Problem History of high cholesterol Z86.39 Active 039027160 Problem Bipolar I disorder with mood-congruent psychotic features F31.9 Active 344771661 Problem Hypertension, benign I10 Active 35038383 Problem Primary insomnia F51.01 Active 4610013 ALLERGIES Substance Reaction Event Type Date Status Penicillin V Potassium Unknown Drug Allergy Dec, Active Metformin HCl diarrhea Drug Allergy Dec, Active Iodine anaphylaxis Drug Allergy Dec, Active Fentanyl halucinations/insomnia Drug Allergy Dec, Active ENCOUNTERS Encounter Location Date Diagnosis [facility] [address] [address] Jun, [facility] [id number] [place] [address] 34137- 3860 May, [facility] [id number] [place] [address] [id number] May, [facility] [id number] [place] [address] 01383- 2073 May, [facility] [address] [address]- 7362 May, [facility] [id number] [place] [address] 94922- 6592 May, [facility] [id number] [place] [address]51- 1965 May, [facility] [id number] [place] [address] 56523- 1860 May, [facility] [id number] [place] [address] 61389- 2243 May, Lumbago M54.5 [facility] [id number] [place] [address] 67969- 2419 May, [facility] [address] [address]1840- 3344 Apr, Abnormal CT of the chest R93.8 [facility] [id number] [place] [address] 81251- 2022 Apr, Bipolar 2 disorder F31.81 ; Chronic post-traumatic stress disorder (PTSD) F43.12 and Panic disorder with agoraphobia F40.01 [facility] [id number] [place] [address] 45442- [address] Apr, [address] of the chest R93.8 [facility] [id number] [place] [address] 92982- [address] Apr, [address] of the chest R93.8 [facility] [id number] [place] [address] 39014- 3473 Apr, [facility] [id number] [place] [address] 74984- 3957 Apr, Type 2 diabetes mellitus with hyperglycemia E11.65 [facility] [id number] [place] [address] 40538- 0669 Apr, Controlled type 2 diabetes mellitus without complication, without long-term current use of insulin E11.9 ; Watery eyes H04.203 ; Low back pain M54.5 ; Other chronic pain G89.29 ; Chronic tension-type headache, not intractable G44.229 ; Uncontrolled type 2 diabetes mellitus without complication , without long-term current use of insulin E11.65 and Bronchitis J40 [facility] [id number] [place] [address] 97110- 4915 Apr, [facility] [address] [address] 3387 Apr, Lumbago M54.5 [facility] [id number] [place] [address] 71429- 6570 March, [facility] [id number] [place] [address] 40585 -6823 March, Cough R05 ; Pneumonia due to infectious organism, unspecified laterality, unspecified part of lung J18.9 and Non-intractable vomiting with nausea, unspecified vomiting type R11.2 [facility] [id number] [place] [address] 38678- 8758 March, Bronchitis J40 [facility] [id number] [place] [address] 48393- 8330 March, [facility] [id number] [place] [address] 41800- 1403 March, El's esophageal ulceration K22.10 and Type 2 diabetes mellitus with hyperglycemia E11.65 [facility] [id number] [place] [address] 46464- 9124 March, Panic disorder with agoraphobia F40.01 ; Chronic post- traumatic stress disorder (PTSD) F43.12 and Bipolar [address] [facility] [id number] [place] [address] 85853- 5806 March, Type 2 diabetes mellitus with hyperglycemia E11.65 [facility] [id number] [address]- 65[address] March, [facility] [id number] [place] [address] 37400- 9734 March, Lumbago M54.5 [facility] [id number] [place] [address] 86009- 1438 March, 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 [id number] [place] [address] 67908- 9476 Jan, [facility] [address] 35353- 2803 Jan, [facility] [id number] [place] [address] 79640- 4940 Jan, [facility] [address] 92079- 6510 Jan, [facility] [id number] [place] [address] 17441- 9468 Jan, Dizziness R42 [facility] [id number] [place] [address] 80960- 3179 Jan, Bipolar affective disorder, currently depressed, mild F31.31 ; Panic disorder with agoraphobia F40.01 and Chronic post-traumatic stress disorder (PTSD) F43.12 [facility] [id number] [place] [address] 08567- 8558 Jan, Dizziness R42 [facility] [id number] [place] [address] 94884- 7473 Jan, Chest pain, unspecified type R07.9 ; Exertional dyspnea R06.09 ; Hypertension, unspecified type I10 and Hyperlipidemia, unspecified hyperlipidemia type E78.5 [facility] [id number] [place] [address] 16614- 1498 Jan, [facility] [id number] [place] [address] 81938- 0873 Jan, Lumbago M54.5 [facility] [id number] [place] [address] 17557- 2506 Jan, El's esophageal ulceration K22.10 ; Blister (nonthermal ) of oral cavity, initial encounter S00.522A ; Local infection of the skin and subcutaneous tissue, unspecified L08.9 ; Type 2 diabetes mellitus with hyperglycemia E11.65 ; custodial current use of insulin Z79.4 and Stress incontinence N39.3 [facility] [id number] [place] [address] 91498- 9534 Dec, [facility] [id number] [place] [address] 91181- 4579 27 Dec, 2017 [facility] [id number] [place] [address] 80023- 5075 19 Dec, 2017 [facility] [id number] [place] [address] [phone] 16 Dec, 2017 Dental examination Z01.20 [facility] [id number] [place] [address] 53997- 1445 15 Dec, 2017 Acute pain of right knee M25.561 [facility] [id number] [place] [address] 37338- 8071 14 Dec, 2017 [facility] [id number] [place] [address] 65137- 0842 14 Dec, 2017 [facility] [id number] [place] [address] 99872- 5263 14 Dec, 2017 Lumbago M54.5 ; Acute pain of right knee M25.561 and Seasonal allergic rhinitis due to other allergic trigger J30.89 [facility] [address] [place] [address] 68647- 4667 12 Dec, 2017 Type 2 diabetes mellitus with hyperglycemia E11.65 [facility] [id number] [place] [address] 22193- 3034 Dec, [facility] [id number] [place] [address] 33611- 8415 Dec, [facility] [address] [address] [address]- [address]67 [address], [address] [facility] [id number] [place] [address] 17591- 4900 Dec, [facility] [id number] [place] [address] 59620- 0401 15 Dec, 2017 Chronic post-traumatic stress disorder (PTSD) F43.12 and Panic disorder with agoraphobia F40.01 [facility] [id number] [place] [address] 77430- 2356 13 Dec, 2017 Low back pain M54.5 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 [address] [place] [address] 02291- 4785 09 Dec, [address] [facility] [id number] [place] [address] 37052- 7179 09 Dec, 2017 [facility] [id number] [place] [address] [phone] 07 Dec, [address] [facility] [id number] [place] [address] 33502- 9097 Nov, Type 2 diabetes mellitus without complications E11.9 and Encounter for therapeutic drug level monitoring Z51.81 [facility] [address] [address]- 1892 Nov, [facility] [id number] [place] [address] 67581- 3152 Oct, Type 2 diabetes mellitus without complications E11.9 [facility] [id number] [place] [address] 04731- 3900 26 Dec, 2017 Type 2 diabetes mellitus with hyperglycemia E11.65 [facility] [address] [address]- 1337 Aug, Type 2 diabetes mellitus without complications E11.9 [facility] [id number] [place] [address] 07443- 9620 Aug, Type 2 diabetes mellitus without complications E11.9 ; Hypoglycemia E16.2 ; Lumbago M54.5 ; Stress incontinence of urine N39.3 and History of WV (myocardial infarction) I25.2 [facility] [address] [address] 4909 Jun, [facility] [id number] [place] [address] 76742- 6680 May, [facility] [id number] [place] [address] 79594- 4766 Apr, Panic disorder with agoraphobia F40.01 [facility] [id number] [place] [address] 21470- 9875 Apr, Panic disorder with agoraphobia F40.01 [facility] [id number] [place] [address] 85345- 2318 Apr, [facility] [id number] [place] [address] 99636- 6757 March, Other chronic pain G89.29 [facility] [id number] [place] [address] 01181- 7464 March, [facility] [address] [address] 4295 March, [facility] [id number] [place] [address] 73775- 8621 March, [facility] [id number] [address]- 5895 March, [facility] [id number] [place] [address] 96685- 1095 March, Type 2 diabetes mellitus without complications E11.9 [facility] [address] [address]- 6503 March, Diarrhea, unspecified type R19.7 [facility] [address] [address]- 4295 March, Bipolar 2 disorder F31.81 ; Chronic post-traumatic stress disorder (PTSD) F43.12 and Type 2 diabetes mellitus with hyperglycemia E11.65 [facility] [address] [address]- 6849 March, [facility] [id number] [place] [address] 67363- 0883 March, [facility] [id number] [place] [address] 78619- 2414 March, Hypertension, benign I10 ; Type 2 diabetes mellitus with hyperglycemia E11.65 ; Hepatitis C B19.20 ; Gastritis and duodenitis K29.90 and Dysuria R30.0 [facility] [address] [address]- 1497 March, Hypertension, benign I10 ; Type 2 diabetes mellitus with hyperglycemia E11.65 ; Hepatitis C B19.20 ; Gastritis and duodenitis K29.90 and Dysuria R30.0 [facility] [address] [address]- 9079 March, Panic disorder with agoraphobia F40.01 ; Chronic post- traumatic stress disorder (PTSD) F43.12 ; Epilepsy G40.909 and Bipolar I disorder with mood-congruent psychotic features F31.9 [facility] [address] [address]- 8079 March, [facility] [id number] [place] [address] 62447- 1987 March, Type 2 diabetes mellitus with hyperglycemia E11.65 [facility] [address] [address]- 1069 Jan, Bipolar I disorder with duy F31.10 [facility] [id number] [place] [address] 45155- 8727 17 Jan, 2017 Bipolar 2 disorder F31.81 ; Chronic post-traumatic stress disorder (PTSD) F43.12 and Type 2 diabetes mellitus with hyperglycemia E11.65 [facility] [id number] [place] [address] 93832- 5247 Jan, [facility] [id number] [place] [address] 97954- 8422 Jan, [facility] [id number] [place] [address] 23084- 0295 14 Jan, 2017 Panic disorder with agoraphobia F40.01 [facility] [id number] [place] [address] 71708- 0094 13 Jan, 2017 Panic disorder with agoraphobia F40.01 ; Bipolar I disorder with mood-congruent psychotic features F31.9 ; Chronic post-traumatic stress disorder (PTSD) F43.12 and Epilepsy G40.909 [facility] [id number] [place] [address] 36729- 6768 Jan, [facility] [id number] [place] [address] 74938- 7906 Jan, [facility] [id number] [place] [address] 46325- 1392 Jan, Type 2 diabetes mellitus without complications E11.[address] [facility] [id number] [place] [address] 08566- 6706 07 Jan, 2017 Type 2 diabetes mellitus without complications E11.9 ; Primary insomnia F51.01 [address] Hypertension, benign I10 [facility] [id number] [place] [address] 26900- 1705 06 Jan, 2017 [facility] [id number] [place] [address] [id number] Jan, [facility] [address] [place] [address]- 2890 Dec, Type 2 diabetes mellitus with hyperglycemia E11.65 [facility] [address] [place] [address] 35743- 7598 Dec, [facility] [address] [place] [address] 03391- 4132 Dec, Bipolar 2 disorder F31.81 ; Panic disorder with agoraphobia F40.01 ; Chronic post-traumatic stress disorder (PTSD) F43.[address] [facility] [address] [place] [address] 66048- 7858 Dec, [facility] [address] [place] [address] 64275- 4348 Dec, [facility] [address] [place] [address] 08840- 3354 Dec, Bipolar 2 disorder F31.81 ; Panic disorder with agoraphobia F40.01 ; Chronic post-traumatic stress disorder (PTSD) F43.[address] [facility] [address] [place] [address] 50817- 5001 Dec, [facility] [address] [place] [address] 60856- 8459 Dec, [facility] [address] [place] [address] 14186- 3386 Dec, [facility] [id number] [place] [address] 37388- 4603 Dec, Type 2 diabetes mellitus with hyperglycemia E11.65 ; custodial current use of insulin Z79.[address] [facility] [address] [place] [address] 69456- 5393 Dec, [facility] [address] [address]- 5378 Dec, [facility] [id number] [place] [address] 82692- 4329 Dec, [facility] [id number] [place] [address] 71981 -2468 Dec, Pain of left leg M79.605 and Pain in right leg M79.604 [facility] [id number] [place] [address] 30622- 3497 14 Dec, 2016 [facility] [address] 35861- 0557 Dec, Type 2 diabetes mellitus with hyperglycemia E11.65 [facility] [address] 44017- 0093 Dec, [facility] [id number] [place] [address] 89064- 4455 Dec, Type 2 diabetes mellitus with hyperglycemia E11.65 ; custodial current use of insulin Z79.4 ; Vagina, candidiasis B37.3 and Other chronic pain G89.29 [facility] [address] 94300- 8146 Nov, Panic disorder with agoraphobia F40.01 [facility] [id number] [place] [address] 63111- 5671 Nov, [facility] [id number] [place] [address] 48536- 9321 Nov, [facility] [address] 91803- 9341 Nov, Hypoglycemia E16.2 [facility] [address] 66998- 5678 Nov, [facility] [address] 53905- 9958 Nov, [facility] [id number] [place] [address] 92013- 7976 Nov, [facility] [address] [address]- 9292 Nov, Type 2 diabetes mellitus with hyperglycemia E11.65 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 [facility] [address] [place] [address] 07474- 3947 Nov, Panic disorder with agoraphobia F40.01 ; Bipolar 2 disorder F31.81 ; Chronic post-traumatic stress disorder (PTSD) F43.12 and Epilepsy G40.909 [facility] [id number] [place] [address] 90732- 4552 Nov, Panic disorder with agoraphobia F40.01 [facility] [id number] [place] [address] 70716- 6296 Oct, [facility] [id number] [place] [address] 62521- 6084 Oct, [facility] [id number] [place] [address] 80914- 4204 Oct, Bipolar 2 disorder F31.81 ; Panic disorder with agoraphobia F40.01 and Mood disorder F39 [facility] [id number] [place] [address] 55687- 8851 Oct, Diabetes E11.9 ; Type 2 diabetes mellitus with hyperglycemia E11.65 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 [facility] [address] [place] [address] 51406- 9577 Oct, [facility] [address] [place] [address] 74851- 9367 Sep, [facility] [id number] [place] [address] 01643- 1791 Sep, Bipolar 2 disorder F31.81 and Mood disorder F39 [place] [id number] [place] [address] 80762- 0255 Sep, [place] [address] [place] [id number] [place] [address] 08493- 3744 Sep, Uncontrolled type 2 diabetes mellitus without complication, without long-term current use of insulin E11.65 [facility] [address] [place] [id number] [place] [address] 00208- 3496 Sep, [facility] [address] [place] [id number] [place] [address] 78517- 5337 Sep, [facility] [address] [place] [id number] [place] [address] 78422- 9169 Sep, [facility] [address] [place] [id number] [place] [address] 09120- 5083 Sep, [facility] [address] [place] [id number] [place] [address] 17763- 2588 Sep, Bipolar 2 disorder F31.81 ; Chronic post-traumatic stress disorder (PTSD) F43.12 ; Panic disorder with agoraphobia F40.01 and Epilepsy G40.909 [place] [address] [place] [id number] [place] [address] 21896- 6855 Sep, Bipolar 2 disorder F31.81 ; PTSD (post-traumatic stress disorder) F43.10 and Panic disorder with agoraphobia F40.01 [place] [address] [place] [id number] [place] [address] 41418- 5389 Sep, [facility] [address] [place] [id number] [place] [address] 90552- 0867 28 Aug, 2016 History of seizures Z87.898 ; Panic disorder with agoraphobia F40.01 and Bipolar [address] [facility] [id number] [place] [address] 82674- 9340 Aug, [facility] [address] [place] [id number] [place] [address] 18796- 0136 17 Aug, 2016 [facility] [address] [place] [id number] [place] [address] [address]- 5[address] 11 Aug, 2016 [facility] [id number] [place] [address] 68351- 6723 Aug, [facility] [id number] [place] [address] 31168- 9954 Aug, [facility] [id number] [place] [address] 13295- 2106 Aug, [facility] [id number] [place] [address] 70123- 6659 Aug, Hypoglycemia E16.2 and Bilateral impacted cerumen H61.23 [facility] [id number] [place] [address] 29314- 2888 Aug, [facility] [id number] [place] [address] 36590- 9497 Jul, [facility] [id number] [place] [address] 75960- 2819 Jul, [facility] [id number] [place] [address] 04665- 9190 15 Jul, 2016 Bipolar 2 disorder F31.81 ; Panic disorder with agoraphobia F40.01 ; PTSD (post-traumatic stress disorder) F43.10 and Epilepsy G40.909 [place] [id number] [place] [address] 46485- 3579 Jul, [facility] [id number] [place] [address] 28981- 0918 Jul, Type 2 diabetes mellitus without complications E11.[address] [facility] [id number] [place] [address] 87947- 3033 Jul, [facility] [id number] [place] [address] 45094- 1566 Jun, [facility] [id number] [place] [address] 83869- 3262 Jun, Bipolar 2 disorder F31.81 ; PTSD (post-traumatic stress disorder) F43.10 and Panic disorder with agoraphobia F40.01 [facility] [address] [address] Jun, [facility] [id number] [place] [address] 48359- 9192 Jun, [facility] [address] [address] 5[address] Jun, [facility] [id number] [place] [address] 62402- 3184 Jun, Type 2 diabetes mellitus without complications E11.9 and COPD (chronic obstructive pulmonary disease) J44.9 [facility] [id number] [place] [address] [id number] May, Dental examination Z01.20 and Dental caries K02.9 [place] [id number] [place] [address] 39177- 7026 May, Bipolar 2 disorder F31.81 ; PTSD (post-traumatic stress disorder) F43.10 and Panic disorder with agoraphobia F40.01 [facility] [id number] [place] [address] 95078- 1666 May, Lumbago with sciatica, right side M54.41 ; Other chronic pain G89.29 and Uncontrolled type 2 diabetes mellitus without complication, without long-term current use of insulin E11.65 [facility] [facility] [address] [address]- 6778 May, Chronic bronchitis, unspecified chronic bronchitis type J42 [facility] [address] [address]- 2037 May, [facility] [id number] [place] [address] 30574- 2690 May, [facility] [id number] [place] [address] 62786- 0651 May, Chest pain, unspecified type R07.9 ; Tobacco use Z72.0 ; Type 2 diabetes mellitus without complications E11.9 ; Essential hypertension I10 ; Hyperlipidemia, unspecified hyperlipidemia type E78.5 ; Obesity (BMI 30- 39.9) E66.9 ; History of hypothyroidism Z86.39 ; Chronic obstructive pulmonary disease, unspecified COPD type J44.9 ; Anxiety F41.9 ; Bilateral claudication of lower limb I73.9 and Bipolar 2 disorder F31.81 [facility] [id number] [place] [address] 29616- 3174 05 May, 2016 Bipolar 2 disorder F31.81 ; Panic disorder with agoraphobia F40.01 and Tobacco abuse Z72.0 [facility] [id number] [place] [address] 65617- 7700 Apr, [facility] [facility] [address] 80997- 5227 Apr, [facility] [id number] [place] [address] 53698- 5317 Apr, [facility] [address] 10438- 3087 Apr, Bipolar 2 disorder F31.81 ; Panic disorder with agoraphobia F40.01 and PTSD (post-traumatic stress disorder) F43.10 [facility] [id number] [place] [address] 73423- 9407 Apr, Chronic bronchitis, unspecified chronic bronchitis type J42 ; Cervical neuritis M54.12 and Thoracic neuritis M54.14 [facility] [id number] [place] [address] 04657- 6557 Apr, [facility] [id number] [place] [address] 79781- 5383 15 Apr, 2016 Cervicalgia M54.2 [facility] [id number] [place] [address] 24767- 9814 14 Apr, 2016 Bipolar 2 disorder F31.81 ; Panic disorder with agoraphobia F40.01 and PTSD (post-traumatic stress disorder) F43.10 [facility] [id number] [place] [address] 99598 -2359 13 Apr, 2016 [facility] [id number] [place] [address] 57789 -9265 Apr, Cough R05 and Tobacco dependence F17.200 [facility] [id number] [place] [address] 35962- 0487 Apr, [facility] [id number] [place] [address] 86313- 0265 Apr, [facility] [id number] [place] [address] 14118- 3683 March, Bipolar 2 disorder F31.81 ; Panic disorder with agoraphobia F40.01 and Generalized anxiety disorder F41.1 [facility] [id number] [place] [address] 21794- 2625 March, Closed displaced fracture of fifth metatarsal bone of right foot with routine healing, subsequent encounter S92.351D [facility] [id number] [place] [address] 59728- 4695 March, Bronchitis J40 [facility] [id number] [place] [address] 56771- 3632 March, [facility] [id number] [place] [address] 41156- 7528 March, [facility] [id number] [place] [address] 48788- 8292 March, Foot pain, right M79.671 ; Cervicalgia M54.2 and Controlled type 2 diabetes mellitus without complication, unspecified retirement insulin use status E11.9 [facility] [id number] [place] [address] 08571- 3075 March, Fracture of fifth metatarsal bone of right foot S92.351A [facility] [id number] [place] [address] 15711- 0265 March, [facility] [id number] [place] [address] 69892- 3411 Jan, Fracture of fifth metatarsal bone of right foot S92.351A [facility] [id number] [place] [address] 48486- 0295 Jan, Bipolar 2 disorder F31.81 ; PTSD (post-traumatic stress disorder) F43.10 ; Panic disorder with agoraphobia F40.01 and Epilepsy G40.909 [place] [address] 30744- 2896 Jan, History of WV (myocardial infarction) I25.2 and History of high cholesterol Z86.39 [facility] [id number] [place] [address] 12126- 2630 Jan, Bipolar 2 disorder F31.81 ; Panic disorder with agoraphobia F40.01 ; Tobacco abuse Z72.0 and PTSD (post-traumatic stress disorder) F43.10 [facility] [address] 81539- 4984 Jan, Fracture of fifth metatarsal bone of right foot S92.351A [facility] [id number] [place] [address] 08143- 1038 Jan, [facility] [id number] [place] [address] 13379- 7643 Jan, History of high cholesterol Z86.39 [facility] [id number] [place] [address] 13716- 7873 Jan, History of WV (myocardial infarction) I25.2 [facility] [id number] [place] [address] 55411- 8762 Jan, [facility] [address] 00226- 1453 Dec, Back pain M54.9 ; Diabetes E11.9 ; Right knee pain M25.561 and Chest pain R07.9 [facility] [id number] [place] [address] 88184- 9207 Dec, [facility] [id number] [place] [address] 41590- 1660 Dec, [facility] [address] 93929- 1541 Dec, Cervicalgia M54.2 [facility] [id number] [place] [address] 74368- 4693 Dec, Bipolar 2 disorder F31.81 ; PTSD (post-traumatic stress disorder) F43.10 ; Panic disorder with agoraphobia F40.01 and Epilepsy G40.909 [facility] [id number] [place] [address] 37384- 4779 Dec, Bipolar 2 disorder F31.81 ; PTSD (post-traumatic stress disorder) F43.10 and Panic disorder with agoraphobia F40.01 [facility] [id number] [place] [address] 18306- 2767 Dec, Diabetes E11.9 [facility] [address] 27174- 7865 Dec, [facility] [address] 35827- 6386 Dec, Other chronic pain G89.29 ; Hepatitis C B19.20 and History of seizures Z87.898 [facility] [id number] [place] [address] 94531- 6856 Dec, [facility] [id number] [place] [address] 98026- 2032 Dec, Bipolar 2 disorder F31.81 and Other chronic pain G89.29 [facility] [id number] [place] [address] 02956- 6683 Dec, Cervicalgia M54.2 and Diabetes E11.9 [facility] [id number] [place] [address] 92975- 8029 Dec, [place] [facility] [address] 65564- 3087 18 Dec, 2015 [facility] [id number] [place] [address] 40348- 4123 Dec, [facility] [id number] [place] [address] 69665- 7152 Dec, [facility] [id number] [place] [address] 30906- 5692 Dec, Type 2 diabetes mellitus without complications E11.9 [facility] [id number] [place] [address] 37035- 0580 10 Dec, 2015 [place] [address] 20517- 8054 Dec, History of seizures Z87.898 and Hepatitis C B19.[address] 78321- 4034 08 Dec, 2015 Hepatitis C B19.20 [facility] [id number] [place] [address] 60931- 7019 Dec, [facility] [id number] [place] [address] 52654- 5928 Dec, Cervicalgia M54.2 ; COPD (chronic obstructive pulmonary disease) J44.9 and Hepatitis C B19.20 [facility] [id number] [place] [address] 66382- 9770 Dec, Bipolar 2 disorder F31.81 ; History of hypertension Z86.79 ; History of anxiety Z86.59 ; Panic disorder with agoraphobia F40.01 and Epilepsy G40.909 [facility] [id number] [place] [address] 93635- 9629 Nov, [facility] [id number] [place] [address] 42225- 5046 Nov, [facility] [id number] [place] [address] 21909- 7005 Nov, History of seizures Z87.898 ; OAB (overactive bladder) N32.81 ; Lumbago M54.5 ; Other chronic pain G89.29 ; Cervicalgia M54.2 ; Tobacco abuse Z72.0 ; Tobacco abuse counseling Z71.6 and Impaired fasting glucose R73.01 [facility] [id number] [place] [address] 61166- 9122 14 Nov, 2015 Bipolar 2 disorder F31.81 ; PTSD (post-traumatic stress disorder) F43.10 ; History of anxiety Z86.59 ; History of COPD Z87.09 ; Panic disorder with agoraphobia F40.01 and Moderate depressed bipolar I disorder F31.32 [facility] [address] 46646- 6480 12 Nov, 2015 PTSD (post-traumatic stress disorder) F43.10 [facility] [id number] [place] [address] [id number] 11 Nov, 2015 Dental examination Z01.20 and Dental caries K02.9 [address] [id number] [place] [address] 05296- 5473 08 Nov, 2015 History of hypertension Z86.79 ; History of hypothyroidism Z86.39 ; History of high cholesterol Z86.39 ; History of COPD Z87.09 and Overactive bladder N32.81 [facility] [id number] [place] [address] 87644- 2998 Nov, Bipolar 2 disorder F31.81 and PTSD (post-traumatic stress disorder) F43.10 [facility] [id number] [place] [address] 14416- 4656 07 Nov, 2015 PTSD (post-traumatic stress disorder) F43.10 ; Panic disorder with agoraphobia F40.01 ; Epilepsy G40.909 and Moderate depressed bipolar I disorder F31.32 [facility] [id number] [place] [address] 05249- 8498 05 Nov, 2015 [facility] [address] 85769- 3167 Nov, [id number] [place] [address] 95720- 6582 Oct, [id number] [place] [address] Oct, Generalized anxiety disorder F41.1 ; Major depression, recurrent F33.9 and PTSD (post-traumatic stress disorder) F43.[address] 02146- 5026 Oct, Elevated fasting glucose R73.[address] 40934- 5950 Oct, Elevated fasting glucose R73.01 [address] [id number] [place] [address] 54667- 8906 Oct, History of COPD Z87.[address] 01244- 9146 Oct, General medical exam Z00.00 ; History of hypertension Z86.79 ; History of hypothyroidism Z86.39 ; History of hepatitis Z86.19 ; History of high cholesterol Z86.39 and History of seizures Z87.[address] [place] [address] 13380- 2721 Oct, General medical exam Z00.00 ; History of hypertension Z86.79 ; History of hypothyroidism Z86.39 ; Bipolar 2 disorder F31.81 ; PTSD ( post-traumatic stress disorder) F43.10 ; History of hepatitis Z86.19 ; History of high cholesterol Z86.39 ; History of anxiety Z86.59 ; History of seizures Z87.898 ; History of WV (myocardial infarction) I25.2 and History of COPD Z87.09 [id number] [place] [address] 60316- 6603 Oct, Generalized anxiety disorder F41.1 ; Depression F32.9 and PTSD (post-traumatic stress disorder) F43.[address] [place] [address]- 6406 Jan, [facility] [address] [facility] [id number] [address]- 5[address] Jan, [facility] [address] [facility] [id number] [place] [address]- 2546 Jun, [facility] [address] [place] [id number] Jun, [facility] [address] [facility] [id number] [address]- 2546 May, [facility] [address] [facility] [id number] [place] [address]- 8516 May, [facility] [address] [place] [id number] May, [facility] [id number] [address]- 2546 May, [facility] [address] [place] [id number] May, [facility] [address] [facility] [id number] [address]- 2546 May, IMMUNIZATIONS No Known Immunizations SOCIAL HISTORY Never Assessed REASON FOR VISIT restorative PLAN OF CARE Activity Details Follow Up prn Reason:TE #8 VITAL SIGNS Height 62 in 2018-01-15 Blood pressure systolic 118 mmHg 2018-01-15 Blood pressure diastolic 88 mmHg 2018-01-15 MEDICATIONS Medication Instructions Dosage Frequency Start Date End Date Duration Status Aspirin 81 MG Orally Once a day 1 tablet 24h May, 30 day(s) Active Microlet Lancets - as directed 8h March, Active Insulin Syringe 31G X 5/16 subcutaneously 4 times a day Inject insulin 4 times daily as prescribed 6h Oct, Active Levothyroxine Sodium 150 MCG Orally Once a day 1 tablet 24h 10 Oct, 2015 Active Blood Glucose Monitor 1 glucometer test blood sugar Apr, Active Albuterol Sulfate 1.25 MG/3ML Inhalation 4 times a day 3 ml as needed 6h 23 Apr, 2016 Active Famotidine 20 mg Orally twice a day 1 tablet 12h March, 30 day(s ) Active Lipitor 40 mg Orally Once a day 1 tablet 24h Active Levemir 100 UNIT/ML Subcutaneous 2 times a day Inject 50 units 12h 14 Dec, 2017 Active Xyzal 5 MG Orally Once a day 1 tablet in the evening 24h Dec, Jan, 30 day(s) Active Atenolol 50 mg Orally Once a day 1 tablet 24h 30 Active Xanax 2 MG Orally 3 times a day 1 tablet 8h Active NovoLog 100 UNIT/ML Subcutaneous 3 times a day Inject 10 units 8h 12 Dec, 2017 Active Nebulizer 1 as directed Apr, Active Doxepin HCl 10 mg Orally Once a day for sleep 1 capsule at bedtime Dec 30 day(s) Not-Taking Ventolin HFA 108 (90 Base) MCG/ACT Inhalation every 6 hrs 2 puffs as needed 6h Active Montelukast Sodium 10 mg Orally Once a day 1 tablet 24h 10 Oct, 2015 30 days Active [place] 10-325 MG Orally 3 times a day 1 tablet as needed 8h Dec, 28 days Active Symbicort 160-4.5 MCG/ACT Inhalation Twice a day- rinse mouth and spit after use 2 puffs every day Apr, Active Cali Contour Next Test - In Vitro 3 times a day as directed 8h March, Active Neurontin 300 MG Orally Three times a day 1 capsule 8h Dec, 30 day(s) Not-Taking RESULTS No Results PROCEDURES Procedure Date Ordered Result Body Site INTRAORL-PERIAPICAL 1 FILM 21216 January 15, 2018 RESIN COMPOS - 2 SURFACES POSTERIOR January 15, 2018 INSTRUCTIONS MEDICATIONS ADMINISTERED No Known Medications MEDICAL (GENERAL) HISTORY Type Description Date Medical History Hypothyroidism Medical History High cholesterol Medical History Hypertension Medical History Brain seizure Medical History Asthma Medical History COPD Medical History Hep C -2004 Medical History WV x 2 last in 2009 Medical History PTSD (post-traumatic stress disorder) Medical History Colon Cancer 2016 Medical History diabites II Surgical History tonsillectomy 1985 Surgical History partial hysterectomy 2004 Surgical History appendectomy 2004 Hospitalization History Surgery(s) only Hospitalization History pneumonia x3 days Hospitalization History Heart cath with stint 05/15/2016 Hospitalization History Diverticulitis, N/V-[facility] 01/28/17
--- OUTSIDE RECORDS SUMMARY | 2019-01-26 08:21 | XMS REPORT ---
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 Name Role Phone MARGI GERARDO Unavailable PROBLEMS Type Condition ICD9-CM Code ANR02-MQ Code Onset Dates Condition Status SNOMED Code Problem OAB (overactive bladder) N32.81 Active 354554676 Problem Epilepsy G40.909 Active 65550690 Problem Cervicalgia M54.2 Active 56140530 Problem Other chronic pain G89.29 Active 63478688 Problem Tobacco abuse Z72.0 Active 02276149 Problem Lumbago M54.5 Active 080856385 Problem Hepatitis C B19.20 Active 57391902 Problem COPD (chronic obstructive pulmonary disease) J44.9 Active 01948766 Problem Diabetes E11.9 Active 82286559 Problem Bipolar I disorder with duy F31.10 Active 77620082 Problem Type 2 diabetes mellitus without complications E11.9 Active 908074021 Problem Stress incontinence of urine N39.3 Active 76042138 Problem Bilateral claudication of lower limb I73.9 Active 802291094 Problem Seasonal allergic rhinitis due to other allergic trigger J30.89 Active 202131311 Problem Hyperlipidemia, unspecified hyperlipidemia type E78.5 Active 26754801 Problem Hypertension, unspecified type I10 Active 58347402 Problem Chronic tension-type headache, not intractable G44.229 Active 442535977 Problem Controlled type 2 diabetes mellitus without complication, without long -term current use of insulin E11.9 Active 317911392 Problem Type 2 diabetes mellitus with hyperglycemia E11.65 Active 376062146 Problem Chronic post-traumatic stress disorder (PTSD) F43.12 Active 859470671 Problem History of hypothyroidism Z86.39 Active 182996393 Problem Hypoglycemia E16.2 Active 216336246 Problem El's esophageal ulceration K22.10 Active 777326142 Problem Bipolar affective disorder, currently depressed, mild F31.31 Active 706655875 Problem Irritable bowel syndrome with diarrhea K58.0 Active 275860796 Problem Stress incontinence N39.3 Active 81526751 Problem History of hypertension Z86.79 Active 909043639 Problem Uncontrolled type 2 diabetes mellitus without complication, without long-term current use of insulin E11.65 Active 888245209 Problem Panic disorder with agoraphobia F40.01 Active 38892504 Problem Type 2 diabetes mellitus with hyperglycemia E11.65 Active 202088502 Problem History of seizures Z87.898 Active 131936305 Problem MCFP current use of insulin Z79.4 Active 852417109 Problem History of CT (myocardial infarction) I25.2 Active 941049338 Problem Mood disorder F39 Active 55411094 Problem Bipolar 2 disorder F31.81 Active 53960630 Problem Gastritis and duodenitis K29.90 Active 359892398 Problem History of high cholesterol Z86.39 Active 069653535 Problem Bipolar I disorder with mood-congruent psychotic features F31.9 Active 653561133 Problem Hypertension, benign I10 Active 61822255 Problem Primary insomnia F51.01 Active 0865455 ALLERGIES Substance Reaction Event Type Date Status Penicillin V Potassium Unknown Drug Allergy Dec, Active Metformin HCl diarrhea Drug Allergy Dec, Active Iodine anaphylaxis Drug Allergy Dec, Active Fentanyl halucinations/insomnia Drug Allergy Dec, Active ENCOUNTERS Encounter Location Date Diagnosis [facility] [address] [address] Jun, [facility] [address] [address] May, [facility] [id number] [place] [address] [id number] May, [facility] [id number] [place] [address] 42153- 8739 May, [facility] [address] [address]- 0527 May, [facility] [address] [address]- 5[address] May, [facility] [address] [address]- [address] May, [facility] [facility] [id number] [place] [address] 25525- 6838 May, Lumbago M54.5 [facility] [id number] [place] [address] 26823- 5168 May, [facility] [id number] [place] [address] 06315- [address] Apr, [address] of the chest R93.8 [facility] [facility] [id number] [place] [address] 28596- 6143 Apr, Bipolar 2 disorder F31.81 ; Chronic post-traumatic stress disorder (PTSD) F43.12 and Panic disorder with agoraphobia F40.01 [facility] [facility] [id number] [place] [address] 19051- [address] Apr, [address] of the chest R93.8 [facility] [id number] [place] [address] 41572- [address] Apr, [address] of the chest R93.8 [facility] [facility] [id number] [place] [address] 90487- 0799 Apr, [facility] [id number] [place] [address] 57392- 1160 Apr, Type 2 diabetes mellitus with hyperglycemia E11.65 [facility] [id number] [place] [address] 86653- 0036 Apr, Controlled type 2 diabetes mellitus without complication, without long-term current use of insulin E11.9 ; Watery eyes H04.203 ; Low back pain M54.5 ; Other chronic pain G89.29 ; Chronic tension-type headache, not intractable G44.229 ; Uncontrolled type 2 diabetes mellitus without complication , without long-term current use of insulin E11.65 and Bronchitis J40 [facility] [facility] [address] [place] [address] 00870- 7564 Apr, [place] [facility] [address] [address]58- 2883 Apr, Lumbago M54.5 [facility] [id number] [place] [address] 18085- 9921 March, [facility] [id number] [place] [address] 91418 -7722 March, Cough R05 ; Pneumonia due to infectious organism, unspecified laterality, unspecified part of lung J18.9 and Non-intractable vomiting with nausea, unspecified vomiting type R11.2 [facility] [id number] [place] [address] 04917- 0544 March, Bronchitis J40 [facility] [facility] [id number] [place] [address] 18826- 9179 March, [facility] [id number] [place] [address] 07789- 9798 March, El's esophageal ulceration K22.10 and Type 2 diabetes mellitus with hyperglycemia E11.65 [facility] [id number] [place] [address] 28012- 2628 March, Panic disorder with agoraphobia F40.01 ; Chronic post- traumatic stress disorder (PTSD) F43.12 and Bipolar 2 disorder F31.81 [facility] [id number] [place] [address] 62877- 2623 March, Type 2 diabetes mellitus with hyperglycemia E11.65 [facility] [id number] [place] [address] 27245- 5469 March, [facility] [id number] [place] [address] 39561- 0383 March, Lumbago M54.5 [facility] [id number] [place] [address] 73999- 6333 March, [facility] [facility] [id number] [place] [address] 83278- 3634 March, Irritable bowel syndrome with diarrhea K58.0 ; Primary insomnia F51.01 ; Type 2 diabetes mellitus with hyperglycemia E11.65 and MCFP current use of insulin Z79.4 [facility] [id number] [place] [address] 80445- 0633 March, [facility] [id number] [place] [address] 57365- 2298 Jan, [facility] [id number] [place] [address] 89354- 1591 Jan, [facility] [id number] [place] [address] 27575- 2358 Jan, [facility] [id number] [place] [address] 33226- 3504 Jan, [facility] [id number] [place] [address] 85444- 6705 Jan, Dizziness R42 [facility] [id number] [place] [address] 43278- 0781 Jan, Bipolar affective disorder, currently depressed, mild F31.31 ; Panic disorder with agoraphobia F40.01 and Chronic post-traumatic stress disorder (PTSD) F43.12 [facility] [id number] [place] [address] 97999- 6251 Jan, Dizziness R42 [facility] [facility] [id number] [place] [address] 94050- 4244 Jan, Chest pain, unspecified type R07.9 ; Exertional dyspnea R06.09 ; Hypertension, unspecified type I10 and Hyperlipidemia, unspecified hyperlipidemia type E78.5 [place] [address] [place] [address] 86514- 5992 Jan, [facility] [facility] [id number] [place] [address] 06993- 8330 Jan, Lumbago M54.5 [facility] [facility] [id number] [place] [address] 91509- 7827 Jan, El's esophageal ulceration K22.10 ; Blister (nonthermal ) of oral cavity, initial encounter S00.522A ; Local infection of the skin and subcutaneous tissue, unspecified L08.9 ; Type 2 diabetes mellitus with hyperglycemia E11.65 ; MCFP current use of insulin Z79.4 and Stress incontinence N39.3 [facility] [id number] [place] [address] 89216- 5984 27 Dec, 2017 [facility] [address] 9[address]- 1749 27 Dec, 2017 [facility] [id number] [place] [address] 02053- 2924 19 Dec, 2017 [facility] [address] [id number] Dec, 2017 Dental examination Z01.20 [place] [facility] [id number] [place] [address] 41628- 3277 15 Dec, 2017 Acute pain of right knee M25.561 [facility] [facility] [id number] [place] [address] 99306- 0800 14 Dec, 2017 [facility] [id number] [place] [address] 92495- 9614 14 Dec, 2017 [facility] [id number] [place] [address] 88327- 3731 14 Dec, 2017 Lumbago M54.5 ; Acute pain of right knee M25.561 and Seasonal allergic rhinitis due to other allergic trigger J30.89 [facility] [id number] [place] [address] 89659- 4340 12 Dec, 2017 Type 2 diabetes mellitus with hyperglycemia E11.65 [facility] [facility] [id number] [place] [address] 58162- 2564 Dec, [facility] [id number] [place] [address] 87488- 3126 Dec, [facility] [id number] [place] [address] 69710- 7948 Dec, [facility] [id number] [place] [address] 65914- 7988 15 Dec, 2017 [facility] [id number] [place] [address] 18469- 8505 15 Dec, 2017 Chronic post-traumatic stress disorder (PTSD) F43.12 and Panic disorder with agoraphobia F40.01 [facility] [facility] [id number] [place] [address] 67452- 3837 13 Dec, 2017 Low back pain M54.5 [facility] [id number] [place] [address] 93284- 5077 12 Dec, 2017 Type 2 diabetes mellitus with hyperglycemia E11.65 ; 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 ; Low back pain M54.5 ; Other chronic pain G89.29 and Encounter for therapeutic drug level monitoring Z51.81 [place] [facility] [id number] [place] [address] 27162- 2278 09 Dec, 2017 Coughing R05 [facility] [facility] [id number] [place] [address] 98857- 0899 09 Dec, 2017 [facility] [id number] [place] [address] [id number] [phone] Dec, 2017 Dental examination Z01.20 [place] [facility] [id number] [place] [address] 64624- 2898 Nov, Type 2 diabetes mellitus without complications E11.9 and Encounter for therapeutic drug level monitoring Z51.81 [facility] [address] [place] [address] 50788- 5814 Nov, [place] [id number] [place] [address] 70615- 3047 Oct, Type 2 diabetes mellitus without complications E11.9 [facility] [address] [place] [address] 59703- 7600 Oct, Type 2 diabetes mellitus with hyperglycemia E11.65 [facility] [facility] [id number] [place] [address] 41680- 2821 Aug, Type 2 diabetes mellitus without complications E11.9 [facility] [address] [address]- 8726 Aug, Type 2 diabetes mellitus without complications E11.9 ; Hypoglycemia E16.2 ; Lumbago M54.5 ; Stress incontinence of urine N39.[address] (myocardial infarction) I25.2 [facility] [id number] [place] [address] 61384- 0842 Jun, [facility] [id number] [address]- 8789 May, [facility] [id number] [place] [address] 01671- 8015 Apr, Panic disorder with agoraphobia F40.01 [facility] [id number] [place] [address] 99678- 0050 Apr, Panic disorder with agoraphobia F40.01 [facility] [address] [address]- 3512 Apr, [facility] [id number] [place] [address] 47600- 7517 March, Other chronic pain G89.29 [facility] [address] [address]- 7381 March, [facility] [address] [address]- 9304 March, [facility] [address] [address]- 7307 March, [facility] [id number] [address]- 2311 March, [facility] [address] [address]- 6023 March, Type 2 diabetes mellitus without complications E11.9 [facility] [id number] [address]- 4745 March, Diarrhea, unspecified type R19.7 [facility] [facility] [id number] [place] [address] 59601- 6268 March, Bipolar 2 disorder F31.81 ; Chronic post-traumatic stress disorder (PTSD) F43.12 and Type 2 diabetes mellitus with hyperglycemia E11.65 [place] [address] [place] [address] 07949- 0348 March, [facility] [facility] [id number] [place] [address] 71849- 2057 March, [facility] [facility] [id number] [place] [address] 70391- 9496 March, Hypertension, benign I10 ; Type 2 diabetes mellitus with hyperglycemia E11.65 ; Hepatitis C B19.20 ; Gastritis and duodenitis K29.90 and Dysuria R30.0 [place] [address] [place] [address] 65482- 3979 March, Hypertension, benign I10 ; Type 2 diabetes mellitus with hyperglycemia E11.65 ; Hepatitis C B19.20 ; Gastritis and duodenitis K29.90 and Dysuria R30.0 [place] [address] [place] [address] 82491- 6135 March, Panic disorder with agoraphobia F40.01 ; Chronic post- traumatic stress disorder (PTSD) F43.12 ; Epilepsy G40.909 and Bipolar I disorder with mood-congruent psychotic features F31.9 [facility] [address] [place] [address] 85845- 4642 March, [facility] [facility] [id number] [place] [address] 90136- 0888 March, Type 2 diabetes mellitus with hyperglycemia E11.65 [facility] [facility] [address] [address]- 9999 Jan, Bipolar I disorder with duy F31.10 [facility] [facility] [id number] [place] [address] 32785- 9396 17 Jan, 2017 Bipolar 2 disorder F31.81 ; Chronic post-traumatic stress disorder (PTSD) F43.12 and Type 2 diabetes mellitus with hyperglycemia E11.65 [facility] [facility] [address] [place] [address] 40686- 2236 17 Jan, 2017 [facility] [facility] [id number] [place] [address] 82379- 0706 17 Jan, 2017 [facility] [id number] [place] [address] 50179- 5277 14 Jan, 2017 Panic disorder with agoraphobia F40.01 [facility] [facility] [id number] [place] [address] 83028- 9679 13 Jan, 2017 Panic disorder with agoraphobia F40.01 ; Bipolar I disorder with mood-congruent psychotic features F31.9 ; Chronic post-traumatic stress disorder (PTSD) F43.12 and Epilepsy G40.909 [facility] [id number] [place] [address] 12639- 7549 Jan, [facility] [id number] [place] [address] 67585- 2551 Jan, [facility] [id number] [place] [address] 49408- 9215 10 Jan, 2017 Type 2 diabetes mellitus without complications E11.9 and Hypoglycemia E16.2 [facility] [facility] [id number] [place] [address] 14886- 7931 Jan, Type 2 diabetes mellitus without complications E11.9 ; Primary insomnia F51.01 and Hypertension, benign I10 [facility] [id number] [place] [address] 38574- 4835 06 Jan, 2017 [facility] [id number] [place] [address] [id number] Jan, [facility] [facility] [id number] [place] [address] 32957- 9955 Dec, Type 2 diabetes mellitus with hyperglycemia E11.65 [facility] [address] [address]- 7658 Dec, [facility] [id number] [place] [address] 53723- 7106 Dec, Bipolar 2 disorder F31.81 ; Panic disorder with agoraphobia F40.01 ; Chronic post-traumatic stress disorder (PTSD) F43.12 and Epilepsy G40.909 [facility] [id number] [place] [address] 66381- 7943 Dec, [facility] [id number] [place] [address] 84459- 3418 Dec, [facility] [facility] [id number] [place] [address] 43164- 7394 Dec, Bipolar 2 disorder F31.81 ; Panic disorder with agoraphobia F40.01 ; Chronic post-traumatic stress disorder (PTSD) F43.12 and Epilepsy G40.909 [facility] [address] [place] [address] 19064- 8716 Dec, [facility] [id number] [place] [address] 84831- 3736 Dec, [facility] [facility] [id number] [place] [address] 41261- 8449 Dec, [facility] [id number] [place] [address] 46759- 8905 Dec, Type 2 diabetes mellitus with hyperglycemia E11.65 ; 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 and Lumbago M54.5 [facility] [id number] [place] [address] 35272- 1276 Dec, [facility] [id number] [place] [address] 57291- 1151 Dec, [facility] [id number] [place] [address] 45391- 7151 Dec, [facility] [id number] [place] [address] 23053 -0586 Dec, Pain of left leg M79.605 and Pain in right leg M79.604 [facility] [id number] [place] [address] 87084- 7599 14 Dec, 2016 [place] [facility] [address] 65067- 5820 08 Dec, 2016 Type 2 diabetes mellitus with hyperglycemia E11.65 [facility] [facility] [address] 00055- 7501 Dec, [place] [facility] [address] 35322- 0801 Dec, Type 2 diabetes mellitus with hyperglycemia E11.65 ; [facility]FP current use of insulin Z79.4 ; Vagina, candidiasis B37.3 and Other chronic pain G89.29 [facility] [facility] [id number] [place] [address] 93658- 7776 Nov, Panic disorder with agoraphobia F40.01 [place] [facility] [address] 98255- 7658 Nov, [facility] [facility] [id number] [place] [address] 86628- 0525 Nov, [facility] [id number] [place] [address] 02554- 5227 Nov, Hypoglycemia E16.2 [facility] [facility] [id number] [place] [address] 34257- 4039 Nov, [facility] [facility] [address] 83612- 7527 Nov, [facility] [id number] [place] [address] 88547- 6060 Nov, [place] [facility] [address] 02735- 6526 Nov, Type 2 diabetes mellitus with hyperglycemia E11.65 and 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 [facility] [address] [place] [address] 62465- 7683 Nov, Panic disorder with agoraphobia F40.01 ; Bipolar 2 disorder F31.81 ; Chronic post-traumatic stress disorder (PTSD) F43.12 and Epilepsy G40.909 [facility] [id number] [place] [address] 90193- 8577 Nov, Panic disorder with agoraphobia F40.01 [facility] [id number] [place] [address] 31815- 5696 Oct, [facility] [id number] [place] [address] 33216- 3789 Oct, [facility] [id number] [place] [address] 15820- 1715 Oct, Bipolar 2 disorder F31.81 ; Panic disorder with agoraphobia F40.01 and Mood disorder F39 [facility] [facility] [address] [place] [address] 60338- 2467 Oct, Diabetes E11.9 ; Type 2 diabetes mellitus with hyperglycemia E11.65 and MCFP current use of insulin Z79.4 [facility] [address] [address]- 6539 Oct, [facility] [id number] [place] [address] 47660- 9549 Sep, [facility] [address] [place] [address] 53494- 2549 Sep, Bipolar 2 disorder F31.81 and Mood disorder F39 [facility] [address] [place] [address] 60594- 5628 Sep, [facility] [address] [place] [address] 48451- 9888 Sep, Uncontrolled type 2 diabetes mellitus without complication, without long-term current use of insulin E11.65 [facility] [address] [address]- 5726 Sep, [facility] [id number] [place] [address] 35171- 7096 Sep, [facility] [address] [address]- 96[address] Sep, [facility] [id number] [place] [address] Sep, [facility] [id number] [place] [address]- 6[address] Sep, Bipolar 2 disorder F31.81 ; Chronic post-traumatic stress disorder (PTSD) F43.12 ; Panic disorder with agoraphobia F40.01 and Epilepsy G40.909 [facility] [id number] [place] [address]- 48[address] Sep, Bipolar 2 disorder F31.81 ; PTSD (post-traumatic stress disorder) F43.10 and Panic disorder with agoraphobia F40.01 [facility] [id number] [place] [address]- [address] Sep, [facility] [id number] [place] [address]- [address] 28 Aug, 2016 History of seizures Z87.898 ; Panic disorder with agoraphobia F40.01 and Bipolar 2 disorder F31.81 [facility] [id number] [address] Aug, [facility] [id number] [address] 17 Aug, 2016 [facility] [id number] [place] [id number]- [address] Aug, [facility] [id number] [address] Aug, [facility] [id number] [place] [address] 11 Aug, 2016 [facility] [id number] [place] [address]186- 9207 Aug, [facility] [id number] [place] [address] 30525- 7213 10 Aug, 2016 Hypoglycemia E16.2 and Bilateral impacted cerumen H61.23 [facility] [id number] [place] [address] 56318- 1435 10 Aug, 2016 [facility] [id number] [place] [address] 24264- 5052 Jul, [facility] [id number] [place] [address] 87437- 4481 21 Jul, 2016 [facility] [id number] [place] [address] 01029- 1797 15 Jul, 2016 Bipolar 2 disorder F31.81 ; Panic disorder with agoraphobia F40.01 ; PTSD (post-traumatic stress disorder) F43.10 and Epilepsy G40.909 [facility] [id number] [place] [address] 62462- 2219 Jul, [facility] [id number] [place] [address] 86062- 2067 09 Jul, 2016 Type 2 diabetes mellitus without complications E11.9 and Coughing R05 [facility] [id number] [place] [address] 42981- 5688 Jul, [facility] [id number] [place] [address] 23918- 3976 Jun, [facility] [id number] [place] [address] 38952- 0052 Jun, Bipolar 2 disorder F31.81 ; PTSD (post-traumatic stress disorder) F43.10 and Panic disorder with agoraphobia F40.01 [facility] [id number] [place] [address] 71923- 8665 Jun, [address] [address] 6088 Jun, [place] [id number] [place] [address] 90233- 8065 Jun, [place] [id number] [place] [address] 57918- 5673 Jun, Type 2 diabetes mellitus without complications E11.9 and COPD (chronic obstructive pulmonary disease) J44.9 [facility] [id number] [place] [address] [id number] May, Dental examination Z01.20 and Dental caries K02.9 [place] [id number] [place] [address] 46136- 4892 May, Bipolar 2 disorder F31.81 ; PTSD (post-traumatic stress disorder) F43.10 and Panic disorder with agoraphobia F40.01 [place] [id number] [place] [address] 64703- 0080 May, Lumbago with sciatica, right side M54.41 ; Other chronic pain G89.29 and Uncontrolled type 2 diabetes mellitus without complication, without long-term current use of insulin E11.65 [address] [id number] [place] [address] 01086- 3054 May, Chronic bronchitis, unspecified chronic bronchitis type J42 [address] [id number] [place] [address] 80325- 8151 May, [place] [id number] [place] [address] 45437- 5205 May, [place] [id number] [place] [address] 31884- 6128 May, Chest pain, unspecified type R07.9 ; Tobacco use Z72.0 ; Type 2 diabetes mellitus without complications E11.9 ; Essential hypertension I10 ; Hyperlipidemia, unspecified hyperlipidemia type E78.5 ; Obesity (BMI 30- 39.9) E66.9 ; History of hypothyroidism Z86.39 ; Chronic obstructive pulmonary disease, unspecified COPD type J44.9 ; Anxiety F41.9 ; Bilateral claudication of lower limb I73.9 and Bipolar 2 disorder F31.81 [place] [id number] [place] [address] 14761- 9665 05 May, 2016 Bipolar 2 disorder F31.81 ; Panic disorder with agoraphobia F40.01 and Tobacco abuse Z72.0 [place] [id number] [place] [address] 42339- 8372 Apr, [place] [id number] [place] [address] 81795- 8904 Apr, [place] [id number] [place] [address] 87941- 6227 Apr, [place] [id number] [place] [address] 42168- 4326 Apr, Bipolar 2 disorder F31.81 ; Panic disorder with agoraphobia F40.01 and PTSD (post-traumatic stress disorder) F43.10 [place] [id number] [place] [address] 30986- 4575 Apr, Chronic bronchitis, unspecified chronic bronchitis type J42 ; Cervical neuritis M54.12 and Thoracic neuritis M54.14 [place] [id number] [place] [address] 22705- 4917 Apr, [place] [id number] [place] [address] 78780- 2199 Apr, Cervicalgia M54.2 [place] [id number] [place] [address] 03055- 8048 Apr, Bipolar 2 disorder F31.81 ; Panic disorder with agoraphobia F40.01 and PTSD (post-traumatic stress disorder) F43.10 [facility] [id number] [place] [address] 37332 -3005 Apr, [facility] [id number] [place] [address] 57874 -1929 09 Apr, 2016 Cough R05 and Tobacco dependence F17.200 [place] [id number] [place] [address] 18223- 0569 Apr, [facility] [id number] [place] [address] 78337- 5662 Apr, [address] [address] 17319- 8451 March, Bipolar 2 disorder F31.81 ; Panic disorder with agoraphobia F40.01 and Generalized anxiety disorder F41.1 [place] [address] 80218- 0563 March, Closed displaced fracture of fifth metatarsal bone of right foot with routine healing, subsequent encounter S92.351D [place] [address] 15205- 9706 March, Bronchitis J40 [place] [id number] [place] [address] 46622- 6904 March, [place] [id number] [place] [address] 67513- 0646 March, [place] [id number] [place] [address] 55406- 8016 March, Foot pain, right M79.671 ; Cervicalgia M54.2 and Controlled type 2 diabetes mellitus without complication, unspecified snf insulin use status E11.9 [place] [id number] [place] [address] 35777- 1065 March, Fracture of fifth metatarsal bone of right foot S92.351A [place] [id number] [place] [address] 75864- 0498 March, [place] [id number] [place] [address] 69330- 8294 Jan, Fracture of fifth metatarsal bone of right foot S92.351A [place] [id number] [place] [address] 23516- 2933 Jan, Bipolar 2 disorder F31.81 ; PTSD (post-traumatic stress disorder) F43.10 ; Panic disorder with agoraphobia F40.01 and Epilepsy G40.909 [place] [id number] [place] [address] 65505- 9047 Jan, History of CT (myocardial infarction) I25.2 and History of high cholesterol Z86.39 [place] [id number] [place] [address] 22790- 5020 Jan, Bipolar 2 disorder F31.81 ; Panic disorder with agoraphobia F40.01 ; Tobacco abuse Z72.0 and PTSD (post-traumatic stress disorder) F43.10 [place] [id number] [place] [address] 71060- 4780 Jan, Fracture of fifth metatarsal bone of right foot S92.351A [place] [address] 80803- 7320 Jan, [place] [id number] [place] [address] 64484- 2737 Jan, History of high cholesterol Z86.39 [place] [id number] [place] [address] 03929- 9971 Jan, [address] of [address] (myocardial infarction) I25.2 [place] [id number] [place] [address] 34285- 7130 Jan, [place] [id number] [place] [address] 38451- 4223 Dec, Back pain M54.9 ; Diabetes E11.9 ; Right knee pain M25.561 and Chest pain R07.9 [place] [id number] [place] [address] 76117- 8123 Dec, [address] [address] 15590- 7578 Dec, [facility] [address] [place] [address] 83754- 8705 Dec, Cervicalgia M54.2 [place] [id number] [place] [address] 10294- 2068 Dec, Bipolar 2 disorder F31.81 ; PTSD (post-traumatic stress disorder) F43.10 ; Panic disorder with agoraphobia F40.01 and Epilepsy G40.909 [facility] [id number] [place] [address] 17758- 6179 Dec, Bipolar 2 disorder F31.81 ; PTSD (post-traumatic stress disorder) F43.10 and Panic disorder with agoraphobia F40.01 [place] [id number] [place] [address] 12983- 0842 Dec, Diabetes E11.9 [place] [address] 13159- 7249 Dec, [place] [id number] [place] [address] 47978- 8257 Dec, Other chronic pain G89.29 ; Hepatitis C B19.20 and History of seizures Z87.898 [address] [address] [place] [address] 16916- 8867 Dec, [place] [id number] [place] [address] 63618- 9857 Dec, Bipolar 2 disorder F31.81 and Other chronic pain G89.29 [place] [id number] [place] [address] 19539- 7538 Dec, Cervicalgia M54.2 and Diabetes E11.9 [facility] [id number] [place] [address] 53790- 7920 Dec, [facility] [id number] [place] [address] 60628- 6522 Dec, [facility] [id number] [place] [address] 65701- 3481 Dec, [facility] [id number] [place] [address] 77182- 2755 Dec, [facility] [id number] [place] [address] 42744- 7154 Dec, Type 2 diabetes mellitus without complications E11.9 [address] [address] 96781- 5077 Dec, [place] [id number] [place] [address] 11272- 2484 Dec, History of seizures Z87.898 and Hepatitis C B19.20 [place] [id number] [place] [address] 49401- 3576 Dec, Hepatitis C B19.20 [place] [address] 38545- 4826 Dec, [place] [id number] [place] [address] 86107- 2237 Dec, Cervicalgia M54.2 ; COPD (chronic obstructive pulmonary disease) J44.9 and Hepatitis C B19.20 [place] [id number] [place] [address] 87084- 0746 Dec, Bipolar 2 disorder F31.81 ; History of hypertension Z86.79 ; History of anxiety Z86.59 ; Panic disorder with agoraphobia F40.01 and Epilepsy G40.909 [place] [id number] [place] [address] 99181- 4153 Nov, [place] [id number] [place] [address] 20002- 3814 Nov, [address] [place] [place] [address] 88566- 2927 Nov, History of seizures Z87.898 ; OAB (overactive bladder) N32.81 ; Lumbago M54.5 ; Other chronic pain G89.29 ; Cervicalgia M54.2 ; Tobacco abuse Z72.0 ; Tobacco abuse counseling Z71.6 and Impaired fasting glucose R73.01 [facility] [id number] [place] [address] 52482- 6384 Nov, Bipolar 2 disorder F31.81 ; PTSD (post-traumatic stress disorder) F43.10 ; History of anxiety Z86.59 ; History of COPD Z87.09 ; Panic disorder with agoraphobia F40.01 and Moderate depressed bipolar I disorder F31.32 [address] [address] 04348- 5493 12 Nov, 2015 PTSD (post-traumatic stress disorder) F43.10 [facility] [address] [id number] Nov, Dental examination Z01.20 and Dental caries K02.[address] 12769- 7144 Nov, History of hypertension Z86.79 ; History of hypothyroidism Z86.39 ; History of high cholesterol Z86.39 ; History of COPD Z87.09 and Overactive bladder N32.81 [address] [address] 81616- 9906 Nov, Bipolar 2 disorder F31.81 and PTSD (post-traumatic stress disorder) F43.10 [place] [id number] [place] [address] 54430- 4499 Nov, PTSD (post-traumatic stress disorder) F43.10 ; Panic disorder with agoraphobia F40.01 ; Epilepsy G40.909 and Moderate depressed bipolar I disorder F31.32 [address] [address] 97816- 2291 Nov, [place] [address] 15586- 2744 Nov, [facility] [address] 62348- 5008 Oct, [place] [address] 64799- 7070 Oct, Generalized anxiety disorder F41.1 ; Major depression, recurrent F33.9 and PTSD (post-traumatic stress disorder) F43.[address] 42314- 8758 Oct, Elevated fasting glucose R73.[address] 36200- 4658 Oct, Elevated fasting glucose R73.[address] 42096- 1595 Oct, History of COPD Z87.[address] 41202- 8497 Oct, General medical exam Z00.00 ; History of hypertension Z86.79 ; History of hypothyroidism Z86.39 ; History of hepatitis Z86.19 ; History of high cholesterol Z86.39 and History of seizures Z87.[address] 37306- 8702 Oct, General medical exam Z00.00 ; History of hypertension Z86.79 ; History of hypothyroidism Z86.39 ; Bipolar 2 disorder F31.81 ; PTSD ( post-traumatic stress disorder) F43.10 ; History of hepatitis Z86.19 ; History of high cholesterol Z86.39 ; History of anxiety Z86.59 ; History of seizures Z87.898 ; History of CT (myocardial infarction) I25.2 and History of COPD Z87.[address] 57452- 4126 Oct, Generalized anxiety disorder F41.1 ; Depression F32.9 and PTSD (post-traumatic stress disorder) F43.[address] 54960- 3221 Jan, [place] [address] [facility] [id number] [address]- 2546 Jan, [facility] [address] [facility] [id number] [address]- 2546 Jun, [facility] [address] [place] [id number] Jun, [facility] [address] [facility] [id number] [address]- 2546 May, [facility] [id number] [address]- 2546 May, [facility] [address] [place] [id number] May, [facility] [id number] [address]- 2546 May, [facility] [address] [place] [id number] May, [facility] [address] [facility] [id number] [address]- 2546 May, IMMUNIZATIONS No Known Immunizations SOCIAL HISTORY Never Assessed REASON FOR VISIT Diabetes-----Ana Cristina PLAN OF CARE Activity Details Follow Up 4 Weeks Reason:dm2 VITAL SIGNS Height 62 in 2018-01-13 Weight 165 lbs 2018-01-13 Temperature 97.7 degrees Fahrenheit 2018-01-13 Heart Rate 120 bpm 2018-01-13 Respiratory Rate 20 2018-01-13 BMI 30.18 kg/m2 2018-01-13 Blood pressure systolic 114 mmHg 2018-01-13 Blood pressure diastolic 74 mmHg 2018-01-13 MEDICATIONS Medication Instructions Dosage Frequency Start Date End Date Duration Status Symbicort 160-4.5 MCG/ACT Inhalation Twice a day- rinse mouth and spit after use 2 puffs every day Apr, Active Levemir 100 UNIT/ML Subcutaneous 2 times a day Inject 50 units 12h Dec, Active Ventolin HFA 108 (90 Base) MCG/ACT Inhalation every 6 hrs 2 puffs as needed 6h Active Atenolol 50 mg Orally Once a day 1 tablet 24h 30 Active Nebulizer 1 as directed Apr, Active Lipitor 40 mg Orally Once a day 1 tablet 24h Active Levothyroxine Sodium 150 MCG Orally Once a day 1 tablet 24h 10 Oct, 2015 Active Xyzal 5 MG Orally Once a day 1 tablet in the evening 24h Dec, Jan, 30 day(s) Active Doxepin HCl 10 mg Orally Once a day for sleep 1 capsule at bedtime Dec 30 day(s) Not-Taking Jones 10-325 MG Orally 3 times a day 1 tablet as needed 8h Dec, 28 days Active Albuterol Sulfate 1.25 MG/3ML Inhalation 4 times a day 3 ml as needed 6h Apr, Active Insulin Syringe 31G X 5/16 subcutaneously 4 times a day Inject insulin 4 times daily as prescribed 6h Oct, Active Famotidine 20 mg Orally twice a day 1 tablet 12h March, 30 day(s ) Active Cali Contour Next Test - In Vitro 3 times a day as directed 8h March, Active Neurontin 300 MG Orally Three times a day 1 capsule 8h 22 Dec, 2016 30 day(s) Not-Taking Montelukast Sodium 10 mg Orally Once a day 1 tablet 24h Oct, 30 days Active Microlet Lancets - as directed 8h March, Active NovoLog 100 UNIT/ML Subcutaneous 3 times a day Inject 10 units 8h Dec, Active Blood Glucose Monitor 1 glucometer test blood sugar Apr, Active Aspirin 81 MG Orally Once a day 1 tablet 24h May, 30 day(s) Active Xanax 2 MG Orally 3 times a day 1 tablet 8h Active RESULTS No Results PROCEDURES No Known [...]
--- OUTSIDE RECORDS SUMMARY | 2019-01-26 08:21 | XMS REPORT ---
Author Author FRANK LUNA Organization [facility] Address [address] [place] [address] Care Team Providers Care Almond Huller Name Role Phone FRANK LUNA Unavailable PROBLEMS Type Condition ICD9-CM Code SRZ82-MZ Code Onset Dates Condition Status SNOMED Code Problem OAB (overactive bladder) N32.81 Active 701174055 Problem Epilepsy G40.909 Active 46335712 Problem Cervicalgia M54.2 Active 88068984 Problem Other chronic pain G89.29 Active 07896395 Problem Tobacco abuse Z72.0 Active 04739190 Problem Lumbago M54.5 Active 489036486 Problem Hepatitis C B19.20 Active 39274713 Problem COPD (chronic obstructive pulmonary disease) J44.9 Active 40458687 Problem Diabetes E11.9 Active 57294131 Problem Bipolar I disorder with duy F31.10 Active 73284697 Problem Type 2 diabetes mellitus without complications E11.9 Active 381158349 Problem Stress incontinence of urine N39.3 Active 58973422 Problem Bilateral claudication of lower limb I73.9 Active 688206646 Problem Seasonal allergic rhinitis due to other allergic trigger J30.89 Active 289941164 Problem Hyperlipidemia, unspecified hyperlipidemia type E78.5 Active 18624931 Problem Hypertension, unspecified type I10 Active 99668772 Problem Chronic tension-type headache, not intractable G44.229 Active 421801428 Problem Controlled type 2 diabetes mellitus without complication, without long -term current use of insulin E11.9 Active 524684180 Problem Type 2 diabetes mellitus with hyperglycemia E11.65 Active 768482183 Problem Chronic post-traumatic stress disorder (PTSD) F43.12 Active 898902688 Problem History of hypothyroidism Z86.39 Active 457149750 Problem Hypoglycemia E16.2 Active 174233936 Problem El's esophageal ulceration K22.10 Active 335346294 Problem Bipolar affective disorder, currently depressed, mild F31.31 Active 230370904 Problem Irritable bowel syndrome with diarrhea K58.0 Active 726857494 Problem Stress incontinence N39.3 Active 25228780 Problem History of hypertension Z86.79 Active 065975259 Problem Uncontrolled type 2 diabetes mellitus without complication, without long-term current use of insulin E11.65 Active 220098396 Problem Panic disorder with agoraphobia F40.01 Active 60341447 Problem Type 2 diabetes mellitus with hyperglycemia E11.65 Active 804650257 Problem History of seizures Z87.898 Active 443434309 Problem penitentiary current use of insulin Z79.4 Active 607467619 Problem History of OH (myocardial infarction) I25.2 Active 420736853 Problem Mood disorder F39 Active 54160440 Problem Bipolar 2 disorder F31.81 Active 87818726 Problem Gastritis and duodenitis K29.90 Active 774107613 Problem History of high cholesterol Z86.39 Active 711259857 Problem Bipolar I disorder with mood-congruent psychotic features F31.9 Active 187242164 Problem Hypertension, benign I10 Active 53669915 Problem Primary insomnia F51.01 Active 7790932 ALLERGIES No Information ENCOUNTERS Encounter Location Date Diagnosis [facility] [id number] [place] [address] 97976- 5736 Jun, [facility] [address] [address]70- 0472 May, [facility] [id number] [place] [place] [address] [id number] May, [facility] [id number] [place] [address] 37664- 2042 May, [facility] [id number] [place] [address] 43305- 5870 May, [facility] [id number] [place] [address] 05839- 6401 May, [facility] [id number] [place] [address] [phone]- 4777 May, [facility] [id number] [place] [address] [id number]- 9583 May, Lumbago M54.5 [address] [address] 0894 May, [facility] [id number] [place] [address] 93213- [address], [address] of the chest R93.8 [address] [id number] [place] [address] 03700- 3219 Apr, Bipolar 2 disorder F31.81 ; Chronic post-traumatic stress disorder (PTSD) F43.12 and Panic disorder with agoraphobia F40.01 [place] [id number] [place] [address] 75746- [address] Apr, [address] of the chest R93.8 [place] [id number] [place] [address] 56377- [address] Apr, [address] of the chest R93.8 [place] [id number] [place] [address] 36066- 7443 Apr, [place] [id number] [place] [address] 09346- 1409 Apr, Type 2 diabetes mellitus with hyperglycemia E11.65 [facility] [id number] [place] [address] 02335- 1660 Apr, Controlled type 2 diabetes mellitus without complication, without long-term current use of insulin E11.9 ; Watery eyes H04.203 ; Low back pain M54.5 ; Other chronic pain G89.29 ; Chronic tension-type headache, not intractable G44.229 ; Uncontrolled type 2 diabetes mellitus without complication , without long-term current use of insulin E11.65 and Bronchitis J40 [facility] [facility] [id number] [place] [address] 74611- 0545 Apr, [facility] [facility] [id number] [place] [address] 29755- 8464 Apr, Lumbago M54.5 [place] [id number] [place] [address] 01508- 0161 March, [facility] [id number] [place] [address] 13593 -9660 March, Cough R05 ; Pneumonia due to infectious organism, unspecified laterality, unspecified part of lung J18.9 and Non-intractable vomiting with nausea, unspecified vomiting type R11.2 [facility] [id number] [place] [address] 37066- 0438 March, Bronchitis J40 [facility] [address] 61940- 1100 March, [address] [address] 03896- 5944 March, El's esophageal ulceration K22.10 and Type 2 diabetes mellitus with hyperglycemia E11.65 [place] [id number] [place] [address] 48463- 5181 March, Panic disorder with agoraphobia F40.01 ; Chronic post- traumatic stress disorder (PTSD) F43.12 and Bipolar 2 disorder F31.81 [place] [id number] [place] [address] 47684- 7101 March, Type 2 diabetes mellitus with hyperglycemia E11.65 [facility] [id number] [place] [address] 47487- 8858 March, [place] [id number] [place] [address] 84946- 4188 March, Lumbago M54.5 [place] [id number] [place] [address] 16365- 2282 March, [address] [address] 53640- 6092 March, Irritable bowel syndrome with diarrhea K58.0 ; Primary insomnia F51.01 ; Type 2 diabetes mellitus with hyperglycemia E11.65 and penitentiary current use of insulin Z79.4 [place] [id number] [place] [address] 08050- 3809 March, [facility] [id number] [place] [address] 13470- 3516 Jan, [facility] [id number] [place] [address] 29309- 7491 Jan, [facility] [id number] [place] [address] 97392- 3709 Jan, [facility] [id number] [place] [address] 27136- 8857 Jan, [facility] [id number] [place] [address] 34933- 7668 Jan, Dizziness R42 [place] [id number] [place] [address] 65050- 7799 Jan, Bipolar affective disorder, currently depressed, mild F31.31 ; Panic disorder with agoraphobia F40.01 and Chronic post-traumatic stress disorder (PTSD) F43.12 [facility] [facility] [id number] [place] [address] 97928- 0549 Jan, Dizziness R42 [facility] [facility] [id number] [place] [address] 67086- 3663 Jan, Chest pain, unspecified type R07.9 ; Exertional dyspnea R06.09 ; Hypertension, unspecified type I10 and Hyperlipidemia, unspecified hyperlipidemia type E78.5 [facility] [id number] [place] [address] 64123- 9019 Jan, [facility] [address] [place] [address] 26227- 0167 Jan, Lumbago M54.5 [place] [id number] [place] [address] 98901- 6122 Jan, El's esophageal ulceration K22.10 ; Blister (nonthermal ) of oral cavity, initial encounter S00.522A ; Local infection of the skin and subcutaneous tissue, unspecified L08.9 ; Type 2 diabetes mellitus with hyperglycemia E11.65 ; penitentiary current use of insulin Z79.4 and Stress incontinence N39.3 [facility] [id number] [place] [address] 71442- 4336 27 Dec, 2017 [facility] [id number] [place] [address] 27196- 0007 27 Dec, 2017 [facility] [id number] [place] [address] 09515- 0283 19 Dec, 2017 [facility] [id number] [place] [address] [id number] 16 Dec, 2017 Dental examination Z01.20 [facility] [id number] [place] [address] 55618- 1958 15 Dec, 2017 Acute pain of right knee M25.561 [facility] [id number] [place] [address] 24541- 7557 14 Dec, 2017 [facility] [id number] [place] [address] 86892- 5200 14 Dec, 2017 [facility] [id number] [place] [address] 12603- 8666 14 Dec, 2017 Lumbago M54.5 ; Acute pain of right knee M25.561 and Seasonal allergic rhinitis due to other allergic trigger J30.89 [facility] [address] [address]- 1392 Dec, Type 2 diabetes mellitus with hyperglycemia E11.65 [facility] [id number] [place] [address] 27008- 1584 Dec, [facility] [id number] [place] [address] 65109- 8017 Dec, [facility] [id number] [place] [address] 78481- 9645 23 Dec, 2017 [facility] [address], [place] [address]- 9833 Dec, [facility] [address] [place] [address]- 2664 15 Dec, 2017 Chronic post-traumatic stress disorder (PTSD) F43.12 and Panic disorder with agoraphobia F40.01 [facility] [id number] [place] [address] 36782- 1371 13 Dec, 2017 Low back pain M54.5 [facility] [id number] [place] [address] 54476- 3069 12 Dec, 2017 Type 2 diabetes mellitus with hyperglycemia E11.65 ; penitentiary current use of insulin Z79.4 ; Low back pain M54.5 ; Other chronic pain G89.29 and Encounter for therapeutic drug level monitoring Z51.81 [facility] [id number] [place] [address] 04299- 9851 09 Dec, 2017 Coughing R05 [address] [id number] [place] [address] 63695- 7230 09 Dec, 2017 [facility] [address] [id number] Dec, 2017 Dental examination Z01.20 [facility] [id number] [place] [address] 91070- 7182 Nov, Type 2 diabetes mellitus without complications E11.9 and Encounter for therapeutic drug level monitoring Z51.81 [facility] [id number] [place] [address] 37854- 0647 Nov, [facility] [id number] [place] [address] 05659- 5064 Oct, Type 2 diabetes mellitus without complications E11.9 [facility] [id number] [place] [address] 12203- 9769 Oct, Type 2 diabetes mellitus with hyperglycemia E11.65 [facility] [id number] [place] [address] 17941- 5437 Aug, Type 2 diabetes mellitus without complications E11.9 [facility] [id number] [place] [address] 88643- 8487 Aug, Type 2 diabetes mellitus without complications E11.9 ; Hypoglycemia E16.2 ; Lumbago M54.5 ; Stress incontinence of urine N39.3 and History of OH (myocardial infarction) I25.2 [facility] [address] [address]- 9913 Jun, [facility] [id number] [place] [address] 86488- 4136 May, [facility] [id number] [place] [address] 99089- 8666 Apr, Panic disorder with agoraphobia F40.01 [facility] [id number] [place] [address] 85524- 1008 Apr, Panic disorder with agoraphobia F40.01 [facility] [id number] [place] [address] 69481- 7454 Apr, [facility] [id number] [place] [address] 03669- 8425 March, Other chronic pain G89.29 [facility] [id number] [place] [address] 60564- 7101 March, [facility] [id number] [place] [address] 57055- 3785 March, [facility] [id number] [place] [address] 17262- 3089 March, [facility] [id number] [place] [address] 50377- 1006 March, [facility] [id number] [place] [address] 18983- 5255 March, Type 2 diabetes mellitus without complications E11.9 [facility] [id number] [place] [address] 38238- 1568 March, Diarrhea, unspecified type R19.7 [facility] [address] [address]- 4273 March, Bipolar 2 disorder F31.81 ; Chronic post-traumatic stress disorder (PTSD) F43.12 and Type 2 diabetes mellitus with hyperglycemia E11.65 [address] [place], [place] [address]- 9401 March, [facility] [id number] [place] [address] 39068- 0007 March, [address] [id number] [place] [address] 17345- 4855 March, Hypertension, benign I10 ; Type 2 diabetes mellitus with hyperglycemia E11.65 ; Hepatitis C B19.20 ; Gastritis and duodenitis K29.90 and Dysuria R30.0 [address] [place] [place] [address] 71319- 1363 March, Hypertension, benign I10 ; Type 2 diabetes mellitus with hyperglycemia E11.65 ; Hepatitis C B19.20 ; Gastritis and duodenitis K29.90 and Dysuria R30.0 [address] [place] [place] [address] 44735- 0107 March, Panic disorder with agoraphobia F40.01 ; Chronic post- traumatic stress disorder (PTSD) F43.12 ; Epilepsy G40.909 and Bipolar I disorder with mood-congruent psychotic features F31.9 [address] [place] [address]- 1360 March, [address] [id number] [place] [address] 55358- 3728 March, Type 2 diabetes mellitus with hyperglycemia E11.65 [facility] [id number] [place] [address] 26097- 5090 Jan, Bipolar I disorder with duy F31.10 [address] [place] [address] [place] [address] 66341- 8385 Jan, Bipolar 2 disorder F31.81 ; Chronic post-traumatic stress disorder (PTSD) F43.12 and Type 2 diabetes mellitus with hyperglycemia E11.65 [facility] [address], [place] [address]- 3017 17 Jan, 2017 [facility] [id number] [place] [address] 24455- 1136 17 Jan, 2017 [facility] [id number] [place] [address] 58340- 4701 14 Jan, 2017 Panic disorder with agoraphobia F40.01 [facility] [id number] [place] [address] 05949 2547 13 Jan, 2017 Panic disorder with agoraphobia F40.01 ; Bipolar I disorder with mood-congruent psychotic features F31.9 ; Chronic post-traumatic stress disorder (PTSD) F43.12 and Epilepsy G40.909 [facility] [id number] [place] [address] 40891- 2461 12 Jan, 2017 [facility] [id number] [place] [address] 68324- 0597 11 Jan, 2017 [facility] [id number] [place] [address] 84538- 3665 10 Jan, 2017 Type 2 diabetes mellitus without complications E11.9 and Hypoglycemia E16.2 [facility] [id number] [place] [address] 09753- 5896 07 Jan, 2017 Type 2 diabetes mellitus without complications E11.9 ; Primary insomnia F51.01 and Hypertension, benign I10 [facility] [address] [place] [address] 37199- 3716 06 Jan, 2017 [facility] [id number] [place] [address] [id number] Jan, [facility] [id number] [place] [address] 04010- 8183 31 Dec, 2016 Type 2 diabetes mellitus with hyperglycemia E11.65 [facility] [address] [place] [address] 50804- 7472 Dec, [facility] [address], [place] [address]- 7241 Dec, Bipolar 2 disorder F31.81 ; Panic disorder with agoraphobia F40.01 ; Chronic post-traumatic stress disorder (PTSD) F43.12 and Epilepsy G40.909 [facility] [address], [place] [address]- 9591 Dec, [facility] [id number] [place] [address] 30731- 7528 Dec, [facility] [address] [place] [address] 01590- 4174 Dec, Bipolar 2 disorder F31.81 ; Panic disorder with agoraphobia F40.01 ; Chronic post-traumatic stress disorder (PTSD) F43.12 and Epilepsy G40.909 [place] [id number] [place] [address] 41835- 8566 Dec, [facility] [id number] [place] [address] 09262- 7870 Dec, [facility] [id number] [place] [address] 69529- 0056 Dec, [facility] [id number] [place] [address] 15600- 8297 Dec, Type 2 diabetes mellitus with hyperglycemia E11.65 ; penitentiary current use of insulin Z79.4 and Lumbago M54.5 [facility] [address], [place] [address]- 9454 Dec, [facility] [address], [place] [address]- 5128 Dec, [facility] [id number] [place] [address] 24684- 3258 Dec, [facility] [address], [place] [address] -5283 Dec, Pain of left leg M79.605 and Pain in right leg M79.604 [place] [id number] [place] [address] 14568- 9067 14 Dec, 2016 [facility] [id number] [place] [address] 62071- 4229 08 Dec, 2016 Type 2 diabetes mellitus with hyperglycemia E11.65 [place] [address] 72211- 5665 Dec, [place] [address] 92377- 4077 Dec, Type 2 diabetes mellitus with hyperglycemia E11.65 ; 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 ; Vagina, candidiasis B37.3 and Other chronic pain G89.29 [place] [address] 32146- 0335 Nov, Panic disorder with agoraphobia F40.01 [facility] [id number] [place] [address] 49959- 1017 Nov, [place] [id number] [place] [address] 40336- 2036 Nov, [place] [id number] [place] [address] 29892- 5946 Nov, Hypoglycemia E16.2 [place] [id number] [place] [address] 90123- 5028 Nov, [facility] [id number] [place] [address] 04035- 3097 Nov, [place] [id number] [place] [address] 31627- 2588 Nov, [place] [id number] [place] [address] 62516- 0989 Nov, Type 2 diabetes mellitus with hyperglycemia E11.65 and penitentiary current use of insulin Z79.4 [place] [address] 01084- 9045 Nov, Panic disorder with agoraphobia F40.01 ; Bipolar 2 disorder F31.81 ; Chronic post-traumatic stress disorder (PTSD) F43.12 and Epilepsy G40.909 [facility] [address] [place] [address] 45695- 1597 Nov, Panic disorder with agoraphobia F40.01 [facility] [id number] [place] [address] [id number] Oct, [facility] [id number] [place] [address] [phone] Oct, [place] [id number] [place] [address] 19454- 1507 Oct, Bipolar 2 disorder F31.81 ; Panic disorder with agoraphobia F40.01 and Mood disorder F39 [place] [id number] [place] [address] 64785- 6421 Oct, Diabetes E11.9 ; Type 2 diabetes mellitus with hyperglycemia E11.65 and penitentiary current use of insulin Z79.4 [place] [id number] [place] [address] [id number]- [id number] Oct, [place] [id number] [place] [address] [phone] Sep, [place] [id number] [place] [address] [id number]- [id number] Sep, Bipolar 2 disorder F31.81 and Mood disorder F39 [facility] [id number] [place] [address] [phone] Sep, [place] [id number] [place] [address] [phone]- [phone] Sep, Uncontrolled type 2 diabetes mellitus without complication, without long-term current use of insulin E11.65 [place] [id number] [place] [address] 54071- 3525 Sep, [place] [address] [address] 9188 18 Sep, 2016 [facility] [id number] [place] [address] 84186- 0846 Sep, [facility] [id number] [place] [address] 45325- 0983 Sep, [facility] [id number] [place] [address] 94696- 7791 Sep, Bipolar 2 disorder F31.81 ; Chronic post-traumatic stress disorder (PTSD) F43.12 ; Panic disorder with agoraphobia F40.01 and Epilepsy G40.909 [facility] [id number] [place] [address] 65141- 6077 Sep, Bipolar 2 disorder F31.81 ; PTSD (post-traumatic stress disorder) F43.10 and Panic disorder with agoraphobia F40.01 [facility] [id number] [place] [address] 77786- 1293 Sep, [facility] [id number] [place] [address] 26618- 2668 28 Aug, 2016 History of seizures Z87.898 ; Panic disorder with agoraphobia F40.01 and Bipolar 2 disorder F31.81 [facility] [id number] [place] [address] 76008- 8178 19 Aug, 2016 [facility] [id number] [place] [address] 91236- 9305 17 Aug, 2016 [facility] [id number] [place] [address] 07592- 7384 Aug, [facility] [id number] [place] [address] 94111- 1190 Aug, [facility] [address], [place] [address] 2338 Aug, [facility] [id number] [place] [address] 32331- 1456 Aug, [facility] [id number] [place] [address] 75859- 1738 Aug, Hypoglycemia E16.2 and Bilateral impacted cerumen H61.23 [facility] [id number] [place] [address] 13037- 5796 Aug, [facility] [address] 51124- 0175 Jul, [facility] [address] 04515- 7481 Jul, [place] [address] 08352- 7085 Jul, Bipolar 2 disorder F31.81 ; Panic disorder with agoraphobia F40.01 ; PTSD (post-traumatic stress disorder) F43.10 and Epilepsy G40.909 [place] [id number] [place] [address] 90147- 1129 Jul, [place] [id number] [place] [address] 74819- 6415 Jul, Type 2 diabetes mellitus without complications E11.9 and Coughing R05 [place] [id number] [place] [address] 98648- 3964 Jul, [place] [id number] [place] [address] 27562- 5343 Jun, [facility] [id number] [place] [address] 90004- 3864 Jun, Bipolar 2 disorder F31.81 ; PTSD (post-traumatic stress disorder) F43.10 and Panic disorder with agoraphobia F40.01 [facility] [id number] [place] [address] 05162- 7258 Jun, [facility] [id number] [place] [address] 36696- 3335 Jun, [facility] [id number] [place] [address] 28377- 0642 Jun, [place] [address] 16717- 9931 Jun, Type 2 diabetes mellitus without complications E11.9 and COPD (chronic obstructive pulmonary disease) J44.9 [facility] [id number] [place] [address] [id number] May, Dental examination Z01.20 and Dental caries K02.9 [place] [address] 94841- 8587 May, Bipolar 2 disorder F31.81 ; PTSD (post-traumatic stress disorder) F43.10 and Panic disorder with agoraphobia F40.01 [place] [id number] [place] [address] 79319- 0075 May, Lumbago with sciatica, right side M54.41 ; Other chronic pain G89.29 and Uncontrolled type 2 diabetes mellitus without complication, without long-term current use of insulin E11.65 [place] [id number] [place] [address] 75551- 2751 May, Chronic bronchitis, unspecified chronic bronchitis type J42 [place] [id number] [place] [address] 62689- 3586 May, [place] [id number] [place] [address] 62302- 0548 May, [place] [id number] [place] [address] 12399- 5106 May, Chest pain, unspecified type R07.9 ; [...] and Bipolar 2 disorder F31.81 [place] [id number] [place] [address] 99821- 5495 05 May, 2016 Bipolar 2 disorder F31.81 ; Panic disorder with agoraphobia F40.01 and Tobacco abuse Z72.0 [place] [id number] [place] [address] 76621- 0194 30 Apr, 2016 [place] [address] 82075- 5563 Apr, [place] [id number] [place] [address] 70825- 3784 Apr, [place] [address] 77963- 3465 Apr, Bipolar 2 disorder F31.81 ; Panic disorder with agoraphobia F40.01 and PTSD (post-traumatic stress disorder) F43.10 [place] [id number] [place] [address] 71625- 1626 Apr, Chronic bronchitis, unspecified chronic bronchitis type J42 ; Cervical neuritis M54.12 and Thoracic neuritis M54.14 [place] [id number] [place] [address] 08710- 5162 15 Apr, 2016 [place] [id number] [place] [address] 73015- 9274 15 Apr, 2016 Cervicalgia M54.2 [place] [id number] [place] [address] 07057- 8564 14 Apr, 2016 Bipolar 2 disorder F31.81 ; Panic disorder with agoraphobia F40.01 and PTSD (post-traumatic stress disorder) F43.10 [facility] [address] [place] [place] [id number] [place] [address] 08363 -4724 13 Apr, 2016 [facility] [address] [place] [id number] [place] [address] 28382 -7943 09 Apr, 2016 Cough R05 and Tobacco dependence F17.[address] [place] [address]- 8231 Apr, [place] [id number] [place] [address] 24292- 0269 Apr, [place] [id number] [place] [address] 49927- 1527 March, Bipolar 2 disorder F31.81 ; Panic disorder with agoraphobia F40.01 and Generalized anxiety disorder F41.1 [place] [id number] [place] [address] 26259- 1532 March, Closed displaced fracture of fifth metatarsal bone of right foot with routine healing, subsequent encounter S92.351D [place] [id number] [place] [address] 47263- 2999 March, Bronchitis J40 [place] [id number] [place] [address] 60572- 5705 March, [place] [id number] [place] [address] 75780- 1102 March, [place] [id number] [place] [address] 19352- 2234 March, Foot pain, right M79.671 ; Cervicalgia M54.2 and Controlled type 2 diabetes mellitus without complication, unspecified assisted insulin use status E11.9 [place] [id number] [place] [address] 56323- 6518 March, Fracture of fifth metatarsal bone of right foot S92.351A [place] [id number] [place] [address] 17630- 8929 March, [place] [id number] [place] [address] 34176- 5294 Jan, Fracture of fifth metatarsal bone of right foot S92.351A [place] [id number] [place] [address] 58006- 5126 Jan, Bipolar 2 disorder F31.81 ; PTSD (post-traumatic stress disorder) F43.10 ; Panic disorder with agoraphobia F40.01 and Epilepsy G40.909 [place] [address] 05436- 2879 Jan, History of OH (myocardial infarction) I25.2 and History of high cholesterol Z86.39 [facility] [address] 03854- 5080 Jan, Bipolar 2 disorder F31.81 ; Panic disorder with agoraphobia F40.01 ; Tobacco abuse Z72.0 and PTSD (post-traumatic stress disorder) F43.10 [place] [address] 33495- 5040 Jan, Fracture of fifth metatarsal bone of right foot S92.351A [place] [address] 04200- 9677 Jan, [place] [address] 04295- 3526 Jan, History of high cholesterol Z86.39 [place] [address] 12500- 7631 Jan, History of OH (myocardial infarction) I25.2 [place] [address] 29097- 8616 Jan, [place] [address] 14247- 5555 Dec, Back pain M54.9 ; Diabetes E11.9 ; Right knee pain M25.561 and Chest pain R07.9 [place] [address] 73792- 3438 Dec, [facility] [address] 77163- 2156 Dec, [facility] [address] 61762- 2082 Dec, Cervicalgia M54.2 [facility] [id number] [place] [address] 77954- 8886 Dec, Bipolar 2 disorder F31.81 ; PTSD (post-traumatic stress disorder) F43.10 ; Panic disorder with agoraphobia F40.01 and Epilepsy G40.909 [facility] [id number] [place] [address] 75078- 8293 Dec, Bipolar 2 disorder F31.81 ; PTSD (post-traumatic stress disorder) F43.10 and Panic disorder with agoraphobia F40.01 [facility] [address] 28285- 3482 Dec, Diabetes E11.9 [place] [address] 71387- 8077 Dec, [place] [address] 77062- 7242 Dec, Other chronic pain G89.29 ; Hepatitis C B19.20 and History of seizures Z87.898 [facility] [id number] [place] [address] 80883- 7713 Dec, [facility] [id number] [place] [address] 12806- 4972 Dec, Bipolar 2 disorder F31.81 and Other chronic pain G89.29 [facility] [address] 13128- 9716 Dec, Cervicalgia M54.2 and Diabetes E11.9 [facility] [id number] [place] [address] 12731- 2468 Dec, [facility] [address] 30720- 1913 Dec, [facility] [address] 54332- 9668 Dec, [facility] [address] 37488- 8493 16 Dec, 2015 [place] [id number] [place] [address] 92637- 2019 Dec, Type 2 diabetes mellitus without complications E11.9 [place] [id number] [place] [address] 02566- 7951 10 Dec, 2015 [place] [id number] [place] [address] 16130- 8433 Dec, History of seizures Z87.898 and Hepatitis C B19.20 [place] [id number] [place] [address] 39421- 0933 Dec, Hepatitis C B19.20 [place] [id number] [place] [address] 26914- 2956 Dec, [place] [id number] [place] [address] 72050- 4103 Dec, Cervicalgia M54.2 ; COPD (chronic obstructive pulmonary disease) J44.9 and Hepatitis C B19.20 [place] [id number] [place] [address] 16564- 1483 Dec, Bipolar 2 disorder F31.81 ; History of hypertension Z86.79 ; History of anxiety Z86.59 ; Panic disorder with agoraphobia F40.01 and Epilepsy G40.909 [place] [id number] [place] [address] 16027- 0115 Nov, [place] [id number] [place] [address] 94000- 1563 Nov, [place] [id number] [place] [address] 67006- 4653 Nov, History of seizures Z87.898 ; OAB (overactive bladder) N32.81 ; Lumbago M54.5 ; Other chronic pain G89.29 ; Cervicalgia M54.2 ; Tobacco abuse Z72.0 ; Tobacco abuse counseling Z71.6 and Impaired fasting glucose R73.01 [facility] [address], [place] [address]- 3850 14 Nov, 2015 Bipolar 2 disorder F31.81 ; PTSD (post-traumatic stress disorder) F43.10 ; History of anxiety Z86.59 ; History of COPD Z87.09 ; Panic disorder with agoraphobia F40.01 and Moderate depressed bipolar I disorder F31.[address] 00087- 8079 12 Nov, 2015 PTSD (post-traumatic stress disorder) F43.10 [facility] [address] [place] [address] [id number] 11 Nov, 2015 Dental examination Z01.20 and Dental caries K02.9 [place] [id number] [place] [address] 92048- 6314 08 Nov, 2015 History of hypertension Z86.79 ; History of hypothyroidism Z86.39 ; History of high cholesterol Z86.39 ; History of COPD Z87.09 and Overactive bladder N32.81 [place] [id number] [place] [address] 07064- 2027 Nov, Bipolar 2 disorder F31.81 and PTSD (post-traumatic stress disorder) F43.10 [facility] [address] [place] [address] 84006- 2880 Nov, PTSD (post-traumatic stress disorder) F43.10 ; Panic disorder with agoraphobia F40.01 ; Epilepsy G40.909 and Moderate depressed bipolar I disorder F31.32 [place] [id number] [place] [address] 48273- 9427 Nov, [place] [id number] [place] [address] 65830- 9428 Nov, [facility] [id number] [place] [address] 71268- 8880 Oct, [place] [id number] [place] [address] 58268- 4949 Oct, Generalized anxiety disorder F41.1 ; Major depression, recurrent F33.9 and PTSD (post-traumatic stress disorder) F43.10 [place] [id number] [place] [address] 00921- 4291 Oct, Elevated fasting glucose R73.01 [place] [id number] [place] [address] 88380- 7256 Oct, Elevated fasting glucose R73.01 [place] [address] 17747- 3289 Oct, History of COPD Z87.[address] 58027- 7952 Oct, General medical exam Z00.00 ; History of hypertension Z86.79 ; History of hypothyroidism Z86.39 ; History of hepatitis Z86.19 ; History of high cholesterol Z86.39 and History of seizures Z87.898 [place] [id number] [place] [address] 15866- 5243 Oct, General medical exam Z00.00 ; History of hypertension Z86.79 ; History of hypothyroidism Z86.39 ; Bipolar 2 disorder F31.81 ; PTSD ( post-traumatic stress disorder) F43.10 ; History of hepatitis Z86.19 ; History of high cholesterol Z86.39 ; History of anxiety Z86.59 ; History of seizures Z87.898 ; History of [place] (myocardial infarction) I25.2 and History of COPD Z87.09 [place] [id number] [place] [address] 95908- 5837 Oct, Generalized anxiety disorder F41.1 ; Depression F32.9 and PTSD (post-traumatic stress disorder) F43.10 [place] [id number] [place] [address] 09169- 4824 Jan, [place] [id number] [place] [address] 08739- 9077 Jan, [address] [place] [address]- 9606 Jun, [facility] [address] [place] [id number] Jun, [facility] [address] [facility] [id number] [address]- 9166 May, [facility] [address] [facility] [id number] [address]- 8520 May, [facility] [address] [place] [id number] May, [facility] [address] [facility] [id number] [address]- 9742 May, [facility] [address] [place] [id number] May, [facility] [address] [facility] [id number] [address]- 9716 May, IMMUNIZATIONS No Known Immunizations SOCIAL HISTORY [...]
--- OUTSIDE RECORDS SUMMARY | 2019-01-26 08:22 | XMS REPORT ---
Author Author GERARDO KISER [facility] Address [address] [place] [address] Care Team Providers Care Content Assistant Name Role Phone MARGI GERARDO Unavailable PROBLEMS Type Condition ICD9-CM Code NJB20-ZL Code Onset Dates Condition Status SNOMED Code Problem OAB (overactive bladder) N32.81 Active 399961400 Problem Epilepsy G40.909 Active 05104449 Problem Cervicalgia M54.2 Active 36736939 Problem Other chronic pain G89.29 Active 26494669 Problem Tobacco abuse Z72.0 Active 00380250 Problem Lumbago M54.5 Active 452956793 Problem Hepatitis C B19.20 Active 86950541 Problem COPD (chronic obstructive pulmonary disease) J44.9 Active 92501282 Problem Diabetes E11.9 Active 99115658 Problem Bipolar I disorder with duy F31.10 Active 40797082 Problem Type 2 diabetes mellitus without complications E11.9 Active 890522960 Problem Stress incontinence of urine N39.3 Active 81970938 Problem Bilateral claudication of lower limb I73.9 Active 607898027 Problem Seasonal allergic rhinitis due to other allergic trigger J30.89 Active 436501428 Problem Hyperlipidemia, unspecified hyperlipidemia type E78.5 Active 24229521 Problem Hypertension, unspecified type I10 Active 78451797 Problem Chronic tension-type headache, not intractable G44.229 Active 156242037 Problem Controlled type 2 diabetes mellitus without complication, without long -term current use of insulin E11.9 Active 114020723 Problem Type 2 diabetes mellitus with hyperglycemia E11.65 Active 281699885 Problem Chronic post-traumatic stress disorder (PTSD) F43.12 Active 689146087 Problem History of hypothyroidism Z86.39 Active 406464054 Problem Hypoglycemia E16.2 Active 912070518 Problem El's esophageal ulceration K22.10 Active 544343481 Problem Bipolar affective disorder, currently depressed, mild F31.31 Active 963714014 Problem Irritable bowel syndrome with diarrhea K58.0 Active 673098381 Problem Stress incontinence N39.3 Active 15896838 Problem History of hypertension Z86.79 Active 446096637 Problem Uncontrolled type 2 diabetes mellitus without complication, without long-term current use of insulin E11.65 Active 865919884 Problem Panic disorder with agoraphobia F40.01 Active 53409899 Problem Type 2 diabetes mellitus with hyperglycemia E11.65 Active 410331250 Problem History of seizures Z87.898 Active 819311864 Problem alf current use of insulin Z79.4 Active 156146072 Problem History of GA (myocardial infarction) I25.2 Active 560150410 Problem Mood disorder F39 Active 07146916 Problem Bipolar 2 disorder F31.81 Active 75629754 Problem Gastritis and duodenitis K29.90 Active 683539377 Problem History of high cholesterol Z86.39 Active 742580001 Problem Bipolar I disorder with mood-congruent psychotic features F31.9 Active 866388288 Problem Hypertension, benign I10 Active 87695046 Problem Primary insomnia F51.01 Active 0049545 ALLERGIES No Information ENCOUNTERS Encounter Location Date Diagnosis [facility] [id number] [place] [address] 08488- 6407 Jun, [facility] [id number] [place] [address] 46155- 2251 May, [facility] [id number] [place] [address] [id number] May, [facility] [id number] [place] [address] 02912- 8539 May, [facility] [id number] [place] [address] 71677- 7198 May, [facility] [id number] [place] [address] 95104- 6479 May, [facility] [address] 82385- 6081 May, [facility] [id number] [place] [address] 52863- 5853 May, Lumbago M54.5 [facility] [id number] [place] [address] 69663- 0970 May, [facility] [address] 20088- [address] Apr, [address] of the chest R93.8 [facility] [id number] [place] [address] 51117- 1689 Apr, Bipolar 2 disorder F31.81 ; Chronic post-traumatic stress disorder (PTSD) F43.12 and Panic disorder with agoraphobia F40.01 [facility] [id number] [place] [address] 73718- [address] Apr, [address] of the chest R93.8 [facility] [id number] [place] [address] 72360- [address] Apr, [address] of the chest R93.8 [facility] [address] 14713- 6401 Apr, [facility] [id number] [place] [address] 95003- 8491 Apr, Type 2 diabetes mellitus with hyperglycemia E11.65 [facility] [id number] [place] [address] 53134- 5407 Apr, Controlled type 2 diabetes mellitus without complication, without long-term current use of insulin E11.9 ; Watery eyes H04.203 ; Low back pain M54.5 ; Other chronic pain G89.29 ; Chronic tension-type headache, not intractable G44.229 ; Uncontrolled type 2 diabetes mellitus without complication , without long-term current use of insulin E11.65 and Bronchitis J40 [facility] [id number] [place] [address] 48430- 8950 Apr, [facility] [address] 87815- 2821 Apr, Lumbago M54.5 [facility] [address] 97690- 1002 March, [facility] [address] [address] March, Cough R05 ; Pneumonia due to infectious organism, unspecified laterality, unspecified part of lung J18.9 and Non-intractable vomiting with nausea, unspecified vomiting type R11.2 [facility] [id number] [place] [address] 86007- 6653 March, Bronchitis J40 [facility] [id number] [place] [address] 34928- 5207 March, [facility] [id number] [place] [address] 03157- 1998 March, El's esophageal ulceration K22.10 and Type 2 diabetes mellitus with hyperglycemia E11.65 [facility] [id number] [place] [address] 78527- 0475 March, Panic disorder with agoraphobia F40.01 ; Chronic post- traumatic stress disorder (PTSD) F43.12 and Bipolar 2 disorder F31.81 [facility] [id number] [place] [address] 84273- 2384 March, Type 2 diabetes mellitus with hyperglycemia E11.65 [facility] [id number] [place] [address] 46848- 0261 March, [facility] [id number] [place] [address] 47470- 6154 March, Lumbago M54.5 [facility] [id number] [place] [address] 88683- 2908 March, [facility] [id number] [place] [address] 90177- 7630 March, Irritable bowel syndrome with diarrhea K58.0 ; Primary insomnia F51.01 ; Type 2 diabetes mellitus with hyperglycemia E11.65 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 [facility] [id number] [place] [address] 51591- 6945 March, [facility] [address] [place] [address] 62355- 2515 Jan, [facility] [id number] [place] [address] 45881- 8049 Jan, [facility] [id number] [place] [address] 22263- 6093 Jan, [facility] [id number] [place] [address] 68180- 4256 Jan, [facility] [id number] [place] [address] 60403- 6645 Jan, Dizziness R42 [facility] [id number] [place] [address] 69994- 5439 Jan, Bipolar affective disorder, currently depressed, mild F31.31 ; Panic disorder with agoraphobia F40.01 and Chronic post-traumatic stress disorder (PTSD) F43.12 [facility] [id number] [place] [address] 67855- 9172 Jan, Dizziness R42 [facility] [id number] [place] [address] 93612- 1281 Jan, Chest pain, unspecified type R07.9 ; Exertional dyspnea R06.09 ; Hypertension, unspecified type I10 and Hyperlipidemia, unspecified hyperlipidemia type E78.5 [facility] [id number] [place] [address] 96017- 7115 Jan, [facility] [id number] [place] [address] 14403- 5057 Jan, Lumbago M54.5 [facility] [id number] [place] [address] 26691- 5947 Jan, El's esophageal ulceration K22.10 ; Blister (nonthermal ) of oral cavity, initial encounter S00.522A ; Local infection of the skin and subcutaneous tissue, unspecified L08.9 ; Type 2 diabetes mellitus with hyperglycemia E11.65 ; 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 and Stress incontinence N39.3 [facility] [address], [place] [address]- 0070 27 Dec, 2017 [facility] [id number] [place] [address] 30628- 8965 27 Dec, 2017 [facility] [id number] [place] [address] 08243- 9539 19 Dec, 2017 [facility] [id number] [place] [address] [phone] 16 Dec, 2017 Dental examination Z01.20 [facility] [id number] [place] [address] 32376- 1350 15 Dec, 2017 Acute pain of right knee M25.561 [facility] [id number] [place] [address] 13904- 8537 14 Dec, 2017 [facility] [id number] [place] [address] 44820- 1207 Dec, [facility] [id number] [place] [address] 85230- 2686 14 Dec, 2017 Lumbago M54.5 ; Acute pain of right knee M25.561 and Seasonal allergic rhinitis due to other allergic trigger J30.89 [facility] [address] [place] [address] 29755- 9446 Dec, Type 2 diabetes mellitus with hyperglycemia E11.65 [facility] [id number] [place] [address] 48140- 1464 Dec, [facility] [id number] [place] [address] 74577- 1972 Dec, [facility] [id number] [place] [address] 25791- 7287 23 Dec, 2017 [facility] [id number] [place] [address] 06359- 0649 15 Dec, 2017 [facility] [id number] [place] [address] 08157- 4648 15 Dec, 2017 Chronic post-traumatic stress disorder (PTSD) F43.12 and Panic disorder with agoraphobia F40.01 [facility] [id number] [place] [address] 28580- 0405 13 Dec, 2017 Low back pain M54.5 [facility] [id number] [place] [address] 68460- 8396 12 Dec, 2017 Type 2 diabetes mellitus with hyperglycemia E11.65 ; 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 ; Low back pain M54.5 ; Other chronic pain G89.29 and Encounter for therapeutic drug level monitoring Z51.81 [facility] [id number] [place] [address] 32756- 6623 09 Dec, 2017 Coughing R05 [facility] [id number] [place] [address] 28509- 9356 09 Dec, 2017 [facility] [id number] [place] [address] [phone] 07 Dec, 2017 Dental examination Z01.20 [facility] [id number] [place] [address] 35287- 1897 Nov, Type 2 diabetes mellitus without complications E11.9 and Encounter for therapeutic drug level monitoring Z51.81 [facility] [id number] [place] [address] 89734- 2748 Nov, [facility] [id number] [place] [address] 48083- 3028 Oct, Type 2 diabetes mellitus without complications E11.9 [facility] [id number] [place] [address] 65397- 8541 Oct, Type 2 diabetes mellitus with hyperglycemia E11.65 [facility] [id number] [place] [address] 86887- 6715 Aug, Type 2 diabetes mellitus without complications E11.9 [facility] [id number] [place] [address] 02167- 1219 Aug, Type 2 diabetes mellitus without complications E11.9 ; Hypoglycemia E16.2 ; Lumbago M54.5 ; Stress incontinence of urine N39.3 and History of GA (myocardial infarction) I25.2 [facility] [id number] [place] [address] 47241- 1830 Jun, [facility] [id number] [place] [address] 61500- 5844 May, [facility] [id number] [place] [address] 43345- 1502 Apr, Panic disorder with agoraphobia F40.01 [facility] [address] 49877- 3161 Apr, Panic disorder with agoraphobia F40.01 [facility] [id number] [place] [address] 52499- 1334 Apr, [facility] [id number] [place] [address] 74250- 2205 March, Other chronic pain G89.29 [facility] [id number] [place] [address] 07103- 2407 March, [facility] [id number] [place] [address] 43971- 8655 March, [facility] [id number] [place] [address] 56856- 2205 March, [facility] [id number] [place] [address] 60095- 2649 March, [facility] [id number] [place] [address] 31344- 9546 March, Type 2 diabetes mellitus without complications E11.9 [facility] [id number] [place] [address] 03118- 2542 March, Diarrhea, unspecified type R19.7 [facility] [id number] [place] [address] 59069- 5077 March, Bipolar 2 disorder F31.81 ; Chronic post-traumatic stress disorder (PTSD) F43.12 and Type 2 diabetes mellitus with hyperglycemia E11.65 [facility] [address], [place] [address]- 9253 March, [facility] [id number] [place] [address] 18359- 0870 March, [facility] [id number] [place] [address] 03205- 7235 March, Hypertension, benign I10 ; Type 2 diabetes mellitus with hyperglycemia E11.65 ; Hepatitis C B19.20 ; Gastritis and duodenitis K29.90 and Dysuria R30.0 [facility] [address] [place] [address] 17084- 6935 March, Hypertension, benign I10 ; Type 2 diabetes mellitus with hyperglycemia E11.65 ; Hepatitis C B19.20 ; Gastritis and duodenitis K29.90 and Dysuria R30.0 [facility] [address] [place] [address] 23623- 4569 March, Panic disorder with agoraphobia F40.01 ; Chronic post- traumatic stress disorder (PTSD) F43.12 ; Epilepsy G40.909 and Bipolar I disorder with mood-congruent psychotic features F31.9 [facility] [address], [place] [address]- 5299 March, [facility] [id number] [place] [address] 06893- 0458 March, Type 2 diabetes mellitus with hyperglycemia E11.65 [facility] [id number] [place] [address] 59590- 9080 Jan, Bipolar I disorder with duy F31.10 [facility] [address], [place] [address]- 7146 Jan, Bipolar 2 disorder F31.81 ; Chronic post-traumatic stress disorder (PTSD) F43.12 and Type 2 diabetes mellitus with hyperglycemia E11.65 [facility] [address], [place] [address]- 4676 17 Jan, 2017 [facility] [address] [place] [address] 24758- 1691 17 Jan, 2017 [facility] [address] [place] [address] 87245- 5818 14 Jan, 2017 Panic disorder with agoraphobia F40.01 [facility] [id number] [place] [address] 19316- 1411 13 Jan, 2017 Panic disorder with agoraphobia F40.01 ; Bipolar I disorder with mood-congruent psychotic features F31.9 ; Chronic post-traumatic stress disorder (PTSD) F43.12 and Epilepsy G40.909 [facility] [address] [place] [address] 24654- 7949 12 Jan, 2017 [facility] [id number] [place] [address] 69849- 7505 Jan, [facility] [id number] [place] [address] 04382- 5852 10 Jan, 2017 Type 2 diabetes mellitus without complications E11.9 and Hypoglycemia E16.2 [facility] [address] [place] [address] 22972- 1855 07 Jan, 2017 Type 2 diabetes mellitus without complications E11.9 ; Primary insomnia F51.01 and Hypertension, benign I10 [facility] [address], [place] [address]- 4019 06 Jan, 2017 [facility] [id number] [place] [address] [id number] Jan, [facility] [address] [place] [address] 33038- 1767 31 Dec, 2016 Type 2 diabetes mellitus with hyperglycemia E11.65 [facility] [address], [place] [address]- 8862 Dec, [facility] [id number] [place] [address] 69135- 4757 Dec, Bipolar 2 disorder F31.81 ; Panic disorder with agoraphobia F40.01 ; Chronic post-traumatic stress disorder (PTSD) F43.12 and Epilepsy G40.909 [facility] [id number] [place] [address] 72074- 7045 Dec, [facility] [id number] [place] [address] 76858- 2963 Dec, [facility] [id number] [place] [address] 50379- 6661 Dec, Bipolar 2 disorder F31.81 ; Panic disorder with agoraphobia F40.01 ; Chronic post-traumatic stress disorder (PTSD) F43.12 and Epilepsy G40.909 [facility] [id number] [place] [address] 15354- 8479 Dec, [facility] [id number] [place] [address] 70816- 1581 Dec, [facility] [id number] [place] [address] 46961- 4616 Dec, [facility] [id number] [place] [address] 12426- 7045 Dec, Type 2 diabetes mellitus with hyperglycemia E11.65 ; 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 and Lumbago M54.5 [facility] [id number] [place] [address] 34944- 0630 Dec, [facility] [id number] [place] [address] 44888- 2054 Dec, [facility] [id number] [place] [address] 42526- 4626 Dec, [facility] [address] [place] [address] 82794 -7131 Dec, Pain of left leg M79.605 and Pain in right leg M79.604 [facility] [address], [place] [address]- 2021 14 Dec, 2016 [facility] [id number] [place] [address] 87683- 1656 08 Dec, 2016 Type 2 diabetes mellitus with hyperglycemia E11.65 [facility] [id number] [place] [address] 11794- 3723 06 Dec, 2016 [facility] [id number] [place] [address] 70586- 8200 Dec, Type 2 diabetes mellitus with hyperglycemia E11.65 ; 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 ; Vagina, candidiasis B37.3 and Other chronic pain G89.29 [facility] [id number] [place] [address] 03714- 7459 Nov, Panic disorder with agoraphobia F40.01 [facility] [id number] [place] [address] 69993- 6573 Nov, [facility] [id number] [place] [address] 34215- 5696 Nov, [facility] [id number] [place] [address] 09014- 7281 Nov, Hypoglycemia E16.2 [facility] [id number] [place] [address] 60000- 0763 Nov, [facility] [id number] [place] [address] 27585- 0967 Nov, [facility] [id number] [place] [address] 45285- 1631 Nov, [facility] [id number] [place] [address] 18371- 6766 Nov, Type 2 diabetes mellitus with hyperglycemia E11.65 and alf current use of insulin Z79.4 [facility] [id number] [place] [address] 43213- 7099 Nov, Panic disorder with agoraphobia F40.01 ; Bipolar 2 disorder F31.81 ; Chronic post-traumatic stress disorder (PTSD) F43.12 and Epilepsy G40.909 [facility] [address] [place] [address] 00432- 1587 Nov, Panic disorder with agoraphobia F40.01 [facility] [id number] [place] [address] 54870- 2808 Oct, [facility] [id number] [place] [address] 06236- 3593 Oct, [facility] [id number] [place] [address] 53458- 8402 Oct, Bipolar 2 disorder F31.81 ; Panic disorder with agoraphobia F40.01 and Mood disorder F39 [facility] [id number] [place] [address] 94712- 8482 Oct, Diabetes E11.9 ; Type 2 diabetes mellitus with hyperglycemia E11.65 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 [facility] [id number] [place] [address] 56634- 0072 Oct, [facility] [address] [place] [address] 42952- 3970 Sep, [facility] [address], [place] [address]- 4581 Sep, Bipolar 2 disorder F31.81 and Mood disorder F39 [facility] [address] [place] [address] 08491- 8835 Sep, [facility] [id number] [place] [address] 20456- 3999 Sep, Uncontrolled type 2 diabetes mellitus without complication, without long-term current use of insulin E11.65 [facility] [address], [place] [address]- 1799 Sep, [facility] [id number] [place] [address]- 2079 Sep, [facility] [address] [place] [address] 63165- 7011 Sep, [facility] [address] [place] [address] 74583- 7784 Sep, [facility] [id number] [place] [address] 17424- 0402 Sep, Bipolar 2 disorder F31.81 ; Chronic post-traumatic stress disorder (PTSD) F43.12 ; Panic disorder with agoraphobia F40.01 and Epilepsy G40.909 [facility] [id number] [place] [address] 49194- 0890 Sep, Bipolar 2 disorder F31.81 ; PTSD (post-traumatic stress disorder) F43.10 and Panic disorder with agoraphobia F40.01 [facility] [id number] [place] [address] 89857- 6406 Sep, [facility] [id number] [place] [address] [id number]- 1545 Aug, History of seizures Z87.898 ; Panic disorder with agoraphobia F40.01 and Bipolar 2 disorder F31.81 [facility] [address] [address] Aug, [facility] [id number] [address] 17 Aug, 2016 [facility] [id number] [place] [address]99- 3795 Aug, [facility] [id number] [place] [address] 36752- 8263 Aug, [facility] [address] [address] Aug, [facility] [id number] [place] [address] 38156- 0784 Aug, [facility] [id number] [place] [address] 65131- 1819 Aug, Hypoglycemia E16.2 and Bilateral impacted cerumen H61.23 [facility] [id number] [place] [address] 66624- 9874 Aug, [facility] [id number] [place] [address] 21633- 7606 Jul, [facility] [id number] [place] [address] 45405- 6183 Jul, [facility] [address] 89103- 3806 Jul, Bipolar 2 disorder F31.81 ; Panic disorder with agoraphobia F40.01 ; PTSD (post-traumatic stress disorder) F43.10 and Epilepsy G40.909 [address] [address] 96237- 4380 Jul, [facility] [id number] [place] [address] 34986- 4529 Jul, Type 2 diabetes mellitus without complications E11.9 and Coughing R05 [facility] [id number] [place] [address] 87535- 1808 Jul, [facility] [id number] [place] [address] 21639- 8099 Jun, [facility] [id number] [place] [address] 70034- 3755 Jun, Bipolar 2 disorder F31.81 ; PTSD (post-traumatic stress disorder) F43.10 and Panic disorder with agoraphobia F40.01 [facility] [id number] [place] [address] 45517- 0494 Jun, [facility] [id number] [place] [address] 08137- 4054 Jun, [facility] [address] [place] [address] 8744 Jun, [facility] [id number] [place] [address] 76429- 1522 Jun, Type 2 diabetes mellitus without complications E11.9 and COPD (chronic obstructive pulmonary disease) J44.9 [facility] [id number] [place] [address] [id number] May, Dental examination Z01.20 and Dental caries K02.9 [facility] [id number] [place] [address] 71013- 5656 May, Bipolar 2 disorder F31.81 ; PTSD (post-traumatic stress disorder) F43.10 and Panic disorder with agoraphobia F40.01 [facility] [id number] [place] [address] 96474- 0829 May, Lumbago with sciatica, right side M54.41 ; Other chronic pain G89.29 and Uncontrolled type 2 diabetes mellitus without complication, without long-term current use of insulin E11.65 [facility] [id number] [place] [address] 25838- 7655 May, Chronic bronchitis, unspecified chronic bronchitis type J42 [facility] [id number] [place] [address] 52691- 7642 May, [facility] [id number] [place] [address] 70819- 8956 May, [facility] [id number] [place] [address] 98739- 6166 May, Chest pain, unspecified type R07.9 ; Tobacco use Z72.0 ; Type 2 diabetes mellitus without complications E11.9 ; Essential hypertension I10 ; Hyperlipidemia, unspecified hyperlipidemia type E78.5 ; Obesity (BMI 30- 39.9) E66.9 ; History of hypothyroidism Z86.39 ; Chronic obstructive pulmonary disease, unspecified COPD type J44.9 ; Anxiety F41.9 ; Bilateral claudication of lower limb I73.9 and Bipolar 2 disorder F31.81 [facility] [facility] [id number] [place] [address] 73740- 9793 05 May, 2016 Bipolar 2 disorder F31.81 ; Panic disorder with agoraphobia F40.01 and Tobacco abuse Z72.0 [facility] [id number] [place] [address] 83019- 0563 30 Apr, 2016 [place] [address] 80832- 3273 Apr, [place] [facility] [address] 81110- 6048 Apr, [place] [facility] [address] 16751- 3919 Apr, Bipolar 2 disorder F31.81 ; Panic disorder with agoraphobia F40.01 and PTSD (post-traumatic stress disorder) F43.10 [place] [address] 40916- 7193 Apr, Chronic bronchitis, unspecified chronic bronchitis type J42 ; Cervical neuritis M54.12 and Thoracic neuritis M54.14 [place] [address] 13383- 5291 Apr, [place] [facility] [address] 43817- 9329 15 Apr, 2016 Cervicalgia M54.2 [facility] [id number] [place] [address] 20938- 2239 14 Apr, 2016 Bipolar 2 disorder F31.81 ; Panic disorder with agoraphobia F40.01 and PTSD (post-traumatic stress disorder) F43.10 [facility] [address] [place] [address] 10205 -3186 13 Apr, 2016 [facility] [address] [place] [id number] [place] [address] 22386 -4494 09 Apr, 2016 Cough R05 and Tobacco dependence F17.200 [place] [address] 41707- 0932 Apr, [place] [address], [place] [address]- 8204 Apr, [facility] [id number] [place] [address] 60250- 2175 March, Bipolar 2 disorder F31.81 ; Panic disorder with agoraphobia F40.01 and Generalized anxiety disorder F41.1 [facility] [id number] [place] [address] 48475- 1749 March, Closed displaced fracture of fifth metatarsal bone of right foot with routine healing, subsequent encounter S92.351D [facility] [id number] [place] [address] 13833- 8246 March, Bronchitis J40 [facility] [id number] [place] [address] 79142- 2242 March, [facility] [id number] [place] [address] 39008- 5050 March, [facility] [id number] [place] [address] 72867- 4641 March, Foot pain, right M79.671 ; Cervicalgia M54.2 and Controlled type 2 diabetes mellitus without complication, 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 [facility] [facility] [address], [place] [address] 6092 March, Fracture of fifth metatarsal bone of right foot S92.351A [place] [address] [address] 1983 March, [facility] [id number] [place] [address] 92965- 1897 Jan, Fracture of fifth metatarsal bone of right foot S92.351A [place] [address], [place] [address]- 9055 Jan, Bipolar 2 disorder F31.81 ; PTSD (post-traumatic stress disorder) F43.10 ; Panic disorder with agoraphobia F40.01 and Epilepsy G40.909 [address] [address] 87213- 9659 Jan, History of GA (myocardial infarction) I25.2 and History of high cholesterol Z86.39 [place] [address] 07531- 8499 Jan, Bipolar 2 disorder F31.81 ; Panic disorder with agoraphobia F40.01 ; Tobacco abuse Z72.0 and PTSD (post-traumatic stress disorder) F43.10 [place] [address] 39088- 7958 Jan, Fracture of fifth metatarsal bone of right foot S92.351A [place] [address] 21509- 0730 Jan, [place] [address] 84827- 3261 Jan, History of high cholesterol Z86.39 [place] [address] 63767- 5799 Jan, History of GA (myocardial infarction) I25.2 [place] [address] 89902- 1725 Jan, [place] [address] 28918- 6098 Dec, Back pain M54.9 ; Diabetes E11.9 ; Right knee pain M25.561 and Chest pain R07.9 [place] [address] 77772- 0142 Dec, [place] [address] 34037- 7856 Dec, [place] [address] 96094- 4215 Dec, Cervicalgia M54.2 [facility] [facility] [id number] [place] [address] 23638- 4136 Dec, Bipolar 2 disorder F31.81 ; PTSD (post-traumatic stress disorder) F43.10 ; Panic disorder with agoraphobia F40.01 and Epilepsy G40.909 [facility] [id number] [place] [address] 80089- 0382 Dec, Bipolar 2 disorder F31.81 ; PTSD (post-traumatic stress disorder) F43.10 and Panic disorder with agoraphobia F40.01 [facility] [id number] [place] [address] 71604- 1982 Dec, Diabetes E11.9 [place] [address] 17652- 9747 Dec, [facility] [address] 93218- 8794 Dec, Other chronic pain G89.29 ; Hepatitis C B19.20 and History of seizures Z87.898 [facility] [id number] [place] [address] 49641- 7313 Dec, [facility] [address] 35013- 5650 Dec, Bipolar 2 disorder F31.81 and Other chronic pain G89.29 [facility] [id number] [place] [address] 69532- 5006 Dec, Cervicalgia M54.2 and Diabetes E11.9 [facility] [id number] [place] [address] 17529- 0604 Dec, [facility] [address] 52038- 3075 Dec, [facility] [id number] [place] [address] 16258- 3120 16 Dec, 2015 [facility] [address] 24975- 4466 16 Dec, 2015 [facility] [id number] [place] [address] 17192- 7692 Dec, Type 2 diabetes mellitus without complications E11.9 [facility] [id number] [place] [address] 29438- 2943 10 Dec, 2015 [place] [address] 58864- 6096 Dec, History of seizures Z87.898 and Hepatitis C B19.20 [place] [address] 42750- 0503 Dec, Hepatitis C B19.20 [place] [address] 66119- 6765 Dec, [place] [address] 05822- 1113 Dec, Cervicalgia M54.2 ; COPD (chronic obstructive pulmonary disease) J44.9 and Hepatitis C B19.20 [facility] [id number] [place] [address] 81042- 7120 Dec, Bipolar 2 disorder F31.81 ; History of hypertension Z86.79 ; History of anxiety Z86.59 ; Panic disorder with agoraphobia F40.01 and Epilepsy G40.909 [facility] [id number] [place] [address] 60166- 0682 Nov, [facility] [id number] [place] [address] 61219- 9110 Nov, [facility] [id number] [place] [address] 68706- 4397 Nov, History of seizures Z87.898 ; OAB (overactive bladder) N32.81 ; Lumbago M54.5 ; Other chronic pain G89.29 ; Cervicalgia M54.2 ; Tobacco abuse Z72.0 ; Tobacco abuse counseling Z71.6 and Impaired fasting glucose R73.01 [address] [address] [place] [address] 72182- 4495 14 Nov, 2015 Bipolar 2 disorder F31.81 ; PTSD (post-traumatic stress disorder) F43.10 ; History of anxiety Z86.59 ; History of COPD Z87.09 ; Panic disorder with agoraphobia F40.01 and Moderate depressed bipolar I disorder F31.32 [facility] [id number] [place] [address] 19110- 3547 12 Nov, 2015 PTSD (post-traumatic stress disorder) F43.10 [facility] [id number] [place] [address] [id number] 11 Nov, 2015 Dental examination Z01.20 and Dental caries K02.9 [facility] [id number] [place] [address] 22724- 8961 08 Nov, 2015 History of hypertension Z86.79 ; History of hypothyroidism Z86.39 ; History of high cholesterol Z86.39 ; History of COPD Z87.09 and Overactive bladder N32.81 [facility] [id number] [place] [address] 42869- 2184 Nov, Bipolar 2 disorder F31.81 and PTSD (post-traumatic stress disorder) F43.10 [facility] [id number] [place] [address] 92832- 9160 Nov, PTSD (post-traumatic stress disorder) F43.10 ; Panic disorder with agoraphobia F40.01 ; Epilepsy G40.909 and Moderate depressed bipolar I disorder F31.32 [facility] [id number] [place] [address] 52570- 8634 Nov, [address] 83513- 2919 Nov, [facility] [id number] [place] [address] 12388- 7200 Oct, [address] 00562- 6433 Oct, Generalized anxiety disorder F41.1 ; Major depression, recurrent F33.9 and PTSD (post-traumatic stress disorder) F43.10 [address] [address] 05293- 3273 Oct, Elevated fasting glucose R73.01 [place] [address] 53928- 5407 Oct, Elevated fasting glucose R73.01 [facility] [facility] [address] 89107- 3257 Oct, History of COPD Z87.[address] 25459- 4851 Oct, General medical exam Z00.00 ; History of hypertension Z86.79 ; History of hypothyroidism Z86.39 ; History of hepatitis Z86.19 ; History of high cholesterol Z86.39 and History of seizures Z87.898 [place] [address] 99372- 9392 Oct, General medical exam Z00.00 ; History of hypertension Z86.79 ; History of hypothyroidism Z86.39 ; Bipolar 2 disorder F31.81 ; PTSD ( post-traumatic stress disorder) F43.10 ; History of hepatitis Z86.19 ; History of high cholesterol Z86.39 ; History of anxiety Z86.59 ; History of seizures Z87.898 ; History of GA (myocardial infarction) I25.2 and History of COPD Z87.09 [facility] [id number] [place] [address] 80055- 1556 Oct, Generalized anxiety disorder F41.1 ; Depression F32.9 and PTSD (post-traumatic stress disorder) F43.10 [facility] [id number] [place] [address] 46046- 6171 Jan, [id number] [place] [address] 03824- 7381 Jan, [facility] [facility] [address] [id number]- 2546 Jun, [facility] [address] [place] [id number] Jun, [facility] [address] [facility] [id number] [address]- 2546 May, [facility] [address] [facility] [id number] [address]- 2546 May, [facility] [address] [place] [id number] May, [facility] [address] [facility] [id number] [address]- 2546 May, [facility] [address] [place] [id number] May, [facility] [address] [facility] [id number] [address]- 2876 May, IMMUNIZATIONS No Known Immunizations SOCIAL HISTORY Never Assessed REASON FOR VISIT Xray (walk-in)--[facility] PLAN OF CARE VITAL SIGNS MEDICATIONS Unknown Medications RESULTS Name Result Date Reference Range Xray : Knee, Right 1-2 views (IN HOUSE) 2018-01-14 PROCEDURES Procedure Date Ordered Result Body Site X-RAY EXAM OF KNEE, 1 OR 2 January 14, 2018 INSTRUCTIONS MEDICATIONS ADMINISTERED No Known Medications [...]
--- OUTSIDE RECORDS SUMMARY | 2019-01-26 08:23 | XMS REPORT ---
Author Author GERARDO KISER [facility] Address [address] [place] [address] Care Team Providers Care Benefits Consulting Analyst Name Role Phone MARGI GERARDO Unavailable PROBLEMS Type Condition ICD9-CM Code [id number] Code Onset Dates Condition Status SNOMED Code Problem OAB (overactive bladder) N32.81 Active 022101914 Problem Epilepsy G40.909 Active 53951937 Problem Cervicalgia M54.2 Active 26678847 Problem Other chronic pain G89.29 Active 92194545 Problem Tobacco abuse Z72.0 Active 38696522 Problem Lumbago M54.5 Active 013170598 Problem Hepatitis C B19.20 Active 48851707 Problem COPD (chronic obstructive pulmonary disease) J44.9 Active 70932942 Problem Diabetes E11.9 Active 47328918 Problem Bipolar I disorder with duy F31.10 Active 72117364 Problem Type 2 diabetes mellitus without complications E11.9 Active 104684479 Problem Stress incontinence of urine N39.3 Active 18471440 Problem Bilateral claudication of lower limb I73.9 Active 314760864 Problem Seasonal allergic rhinitis due to other allergic trigger J30.89 Active 504981250 Problem Hyperlipidemia, unspecified hyperlipidemia type E78.5 Active 53205034 Problem Hypertension, unspecified type I10 Active 88848249 Problem Chronic tension-type headache, not intractable G44.229 Active 070628901 Problem Controlled type 2 diabetes mellitus without complication, without long -term current use of insulin E11.9 Active 325767282 Problem Type 2 diabetes mellitus with hyperglycemia E11.65 Active 401214439 Problem Chronic post-traumatic stress disorder (PTSD) F43.12 Active 336737078 Problem History of hypothyroidism Z86.39 Active 878086711 Problem Hypoglycemia E16.2 Active 987885977 Problem El's esophageal ulceration K22.10 Active 739740691 Problem Bipolar affective disorder, currently depressed, mild F31.31 Active 775897055 Problem Irritable bowel syndrome with diarrhea K58.0 Active 292696744 Problem Stress incontinence N39.3 Active 12779942 Problem History of hypertension Z86.79 Active 629074544 Problem Uncontrolled type 2 diabetes mellitus without complication, without long-term current use of insulin E11.65 Active 572557431 Problem Panic disorder with agoraphobia F40.01 Active 53514051 Problem Type 2 diabetes mellitus with hyperglycemia E11.65 Active 360618775 Problem History of seizures Z87.898 Active 442513202 Problem assisted current use of insulin Z79.4 Active 351589364 Problem History of OK (myocardial infarction) I25.2 Active 440996189 Problem Mood disorder F39 Active 54862842 Problem Bipolar 2 disorder F31.81 Active 64475162 Problem Gastritis and duodenitis K29.90 Active 090617762 Problem History of high cholesterol Z86.39 Active 554970310 Problem Bipolar I disorder with mood-congruent psychotic features F31.9 Active 231223728 Problem Hypertension, benign I10 Active 44079764 Problem Primary insomnia F51.01 Active 0012992 ALLERGIES No Information ENCOUNTERS Encounter Location Date Diagnosis [facility] [id number] [place] [address] 55087- 9482 Jun, [facility] [id number] [place] [address] 65830- 6136 May, [facility] [id number] [place] [address] [id number] May, [facility] [id number] [place] [address] 84628- 3930 May, [facility] [id number] [place] [address] 49124- 5265 May, [facility] [id number] [place] [address] 26540- 4561 May, [facility] [address] 07247- 5993 May, [facility] [id number] [place] [address] 28928- 3651 May, Lumbago M54.5 [facility] [id number] [place] [address] 59390- 7544 May, [facility] [address] 08886- [address] Apr, [address] of the chest R93.8 [facility] [id number] [place] [address] 27857- 7850 Apr, Bipolar 2 disorder F31.81 ; Chronic post-traumatic stress disorder (PTSD) F43.12 and Panic disorder with agoraphobia F40.01 [facility] [id number] [place] [address] 18615- [address] Apr, [address] of the chest R93.8 [facility] [id number] [place] [address] 28916- [address] Apr, [address] of the chest R93.8 [facility] [address] 19105- 5016 Apr, [facility] [id number] [place] [address] 39104- 6662 Apr, Type 2 diabetes mellitus with hyperglycemia E11.65 [facility] [id number] [place] [address] 23016- 6444 Apr, Controlled type 2 diabetes mellitus without complication, without long-term current use of insulin E11.9 ; Watery eyes H04.203 ; Low back pain M54.5 ; Other chronic pain G89.29 ; Chronic tension-type headache, not intractable G44.229 ; Uncontrolled type 2 diabetes mellitus without complication , without long-term current use of insulin E11.65 and Bronchitis J40 [facility] [id number] [place] [address] 14593- 1856 Apr, [facility] [address] 57207- 9190 Apr, Lumbago M54.5 [facility] [address] 70197- 6836 March, [facility] [address] [address] March, Cough R05 ; Pneumonia due to infectious organism, unspecified laterality, unspecified part of lung J18.9 and Non-intractable vomiting with nausea, unspecified vomiting type R11.2 [facility] [id number] [place] [address] 02808- 4899 March, Bronchitis J40 [facility] [id number] [place] [address] 89145- 3504 March, [facility] [id number] [place] [address] 15687- 0188 March, El's esophageal ulceration K22.10 and Type 2 diabetes mellitus with hyperglycemia E11.65 [facility] [id number] [place] [address] 93152- 9135 March, Panic disorder with agoraphobia F40.01 ; Chronic post- traumatic stress disorder (PTSD) F43.12 and Bipolar 2 disorder F31.81 [facility] [id number] [place] [address] 78747- 5002 March, Type 2 diabetes mellitus with hyperglycemia E11.65 [facility] [id number] [place] [address] 56846- 3647 March, [facility] [id number] [place] [address] 53317- 5084 March, Lumbago M54.5 [facility] [id number] [place] [address] 91172- 5419 March, [facility] [id number] [place] [address] 14349- 8132 March, Irritable bowel syndrome with diarrhea K58.0 ; Primary insomnia F51.01 ; Type 2 diabetes mellitus with hyperglycemia E11.65 and 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 [facility] [id number] [place] [address] 14905- 9118 March, [facility] [address] [place] [address] 32866- 9146 Jan, [facility] [id number] [place] [address] 43229- 8284 Jan, [facility] [id number] [place] [address] 46290- 9306 Jan, [facility] [id number] [place] [address] 70619- 0406 Jan, [facility] [id number] [place] [address] 10119- 8461 Jan, Dizziness R42 [facility] [id number] [place] [address] 40021- 6443 Jan, Bipolar affective disorder, currently depressed, mild F31.31 ; Panic disorder with agoraphobia F40.01 and Chronic post-traumatic stress disorder (PTSD) F43.12 [facility] [id number] [place] [address] 90882- 3991 Jan, Dizziness R42 [facility] [id number] [place] [address] 58921- 1430 Jan, Chest pain, unspecified type R07.9 ; Exertional dyspnea R06.09 ; Hypertension, unspecified type I10 and Hyperlipidemia, unspecified hyperlipidemia type E78.5 [facility] [id number] [place] [address] 49676- 0690 Jan, [facility] [id number] [place] [address] 25354- 3692 Jan, Lumbago M54.5 [facility] [id number] [place] [address] 21074- 6951 Jan, El's esophageal ulceration K22.10 ; Blister (nonthermal ) of oral cavity, initial encounter S00.522A ; Local infection of the skin and subcutaneous tissue, unspecified L08.9 ; Type 2 diabetes mellitus with hyperglycemia E11.65 ; 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 and Stress incontinence N39.3 [facility] [address] [address]- 0221 27 Dec, 2017 [facility] [id number] [place] [address] 91075- 6446 27 Dec, 2017 [facility] [id number] [place] [address] 50012- 5889 19 Dec, 2017 [facility] [id number] [place] [address] [id number] Dec, 2017 Dental examination Z01.20 [facility] [id number] [place] [address] 80561- 0671 15 Dec, 2017 Acute pain of right knee M25.561 [facility] [id number] [place] [address] 54720- 8544 14 Dec, 2017 [facility] [id number] [place] [address] 87360- 3922 Dec, [facility] [id number] [place] [address] 50817- 2717 14 Dec, 2017 Lumbago M54.5 ; Acute pain of right knee M25.561 and Seasonal allergic rhinitis due to other allergic trigger J30.89 [facility] [address] [place] [address] 92555- 1847 Dec, Type 2 diabetes mellitus with hyperglycemia E11.65 [facility] [id number] [place] [address] 58148- 8327 Dec, [facility] [id number] [place] [address] 57735- 6739 Dec, [facility] [id number] [place] [address] 47798- 6895 23 Dec, 2017 [facility] [id number] [place] [address] 65113- 4621 15 Dec, 2017 [facility] [id number] [place] [address] 96764- 2108 15 Dec, 2017 Chronic post-traumatic stress disorder (PTSD) F43.12 and Panic disorder with agoraphobia F40.01 [facility] [id number] [place] [address] 11988- 0047 13 Dec, 2017 Low back pain M54.5 [facility] [id number] [place] [address] 14262- 5756 12 Dec, 2017 Type 2 diabetes mellitus with hyperglycemia E11.65 ; 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 ; Low back pain M54.5 ; Other chronic pain G89.29 and Encounter for therapeutic drug level monitoring Z51.81 [facility] [id number] [place] [address] 14389- 3991 09 Dec, 2017 Coughing R05 [facility] [id number] [place] [address] 50872- 8894 09 Dec, 2017 [facility] [id number] [place] [address] [phone] Dec, 2017 Dental examination Z01.20 [facility] [id number] [place] [address] 63131- 5444 Nov, Type 2 diabetes mellitus without complications E11.9 and Encounter for therapeutic drug level monitoring Z51.81 [facility] [id number] [place] [address] 31853- 6894 Nov, [facility] [id number] [place] [address] 36003- 1536 Oct, Type 2 diabetes mellitus without complications E11.9 [facility] [id number] [place] [address] 55405- 3775 Oct, Type 2 diabetes mellitus with hyperglycemia E11.65 [facility] [id number] [place] [address] 14788- 9476 Aug, Type 2 diabetes mellitus without complications E11.9 [facility] [id number] [place] [address] 32826- 3419 Aug, Type 2 diabetes mellitus without complications E11.9 ; Hypoglycemia E16.2 ; Lumbago M54.5 ; Stress incontinence of urine N39.3 and History of OK (myocardial infarction) I25.2 [facility] [id number] [place] [address] 55532- 4680 Jun, [facility] [id number] [place] [address] 05619- 3813 May, [facility] [id number] [place] [address] 58484- 6353 Apr, Panic disorder with agoraphobia F40.01 [facility] [address] 21780- 4468 Apr, Panic disorder with agoraphobia F40.01 [facility] [id number] [place] [address] 35679- 5251 Apr, [facility] [id number] [place] [address] 27081- 4464 March, Other chronic pain G89.29 [facility] [id number] [place] [address] 13786- 9898 March, [facility] [id number] [place] [address] 89655- 4741 March, [facility] [id number] [place] [address] 48029- 9805 March, [facility] [id number] [place] [address] 34653- 7425 March, [facility] [id number] [place] [address] 75348- 7332 March, Type 2 diabetes mellitus without complications E11.9 [facility] [id number] [place] [address] 73624- 1659 March, Diarrhea, unspecified type R19.7 [facility] [id number] [place] [address] 99897- 6400 March, Bipolar 2 disorder F31.81 ; Chronic post-traumatic stress disorder (PTSD) F43.12 and Type 2 diabetes mellitus with hyperglycemia E11.65 [facility] [address] [address]- 3267 March, [facility] [id number] [place] [address] 12781- 5985 March, [facility] [id number] [place] [address] 23441- 8586 March, Hypertension, benign I10 ; Type 2 diabetes mellitus with hyperglycemia E11.65 ; Hepatitis C B19.20 ; Gastritis and duodenitis K29.90 and Dysuria R30.0 [facility] [address] [place] [address] 82695- 5890 March, Hypertension, benign I10 ; Type 2 diabetes mellitus with hyperglycemia E11.65 ; Hepatitis C B19.20 ; Gastritis and duodenitis K29.90 and Dysuria R30.0 [facility] [address] [place] [address] 12275- 4735 March, Panic disorder with agoraphobia F40.01 ; Chronic post- traumatic stress disorder (PTSD) F43.12 ; Epilepsy G40.909 and Bipolar I disorder with mood-congruent psychotic features F31.9 [facility] [address] [address]- 3674 March, [facility] [id number] [place] [address] 37449- 7120 March, Type 2 diabetes mellitus with hyperglycemia E11.65 [facility] [id number] [place] [address] 53078- 8395 Jan, Bipolar I disorder with duy F31.10 [facility] [address] [address]- 0813 Jan, Bipolar 2 disorder F31.81 ; Chronic post-traumatic stress disorder (PTSD) F43.12 and Type 2 diabetes mellitus with hyperglycemia E11.65 [facility] [address] [address]- 7350 17 Jan, 2017 [facility] [address] [place] [address] 68644- 4138 17 Jan, 2017 [facility] [address] [place] [address] 20682- 2388 14 Jan, 2017 Panic disorder with agoraphobia F40.01 [facility] [id number] [place] [address] 71664- 6354 13 Jan, 2017 Panic disorder with agoraphobia F40.01 ; Bipolar I disorder with mood-congruent psychotic features F31.9 ; Chronic post-traumatic stress disorder (PTSD) F43.12 and Epilepsy G40.909 [facility] [address] [place] [address] 43181- 0373 12 Jan, 2017 [facility] [id number] [place] [address] 02385- 7646 Jan, [facility] [id number] [place] [address] 70023- 7641 10 Jan, 2017 Type 2 diabetes mellitus without complications E11.9 and Hypoglycemia E16.2 [facility] [address] [place] [address] 03609- 7996 07 Jan, 2017 Type 2 diabetes mellitus without complications E11.9 ; Primary insomnia F51.01 and Hypertension, benign I10 [facility] [address] [address]- 9072 06 Jan, 2017 [facility] [id number] [place] [address] [id number] Jan, [facility] [address] [place] [address] 84551- 8778 31 Dec, 2016 Type 2 diabetes mellitus with hyperglycemia E11.65 [facility] [address] [address]- 4396 Dec, [facility] [id number] [place] [address] 99160- 3618 Dec, Bipolar 2 disorder F31.81 ; Panic disorder with agoraphobia F40.01 ; Chronic post-traumatic stress disorder (PTSD) F43.12 and Epilepsy G40.909 [facility] [id number] [place] [address] 50668- 3961 Dec, [facility] [id number] [place] [address] 05993- 4908 Dec, [facility] [id number] [place] [address] 16183- 7445 Dec, Bipolar 2 disorder F31.81 ; Panic disorder with agoraphobia F40.01 ; Chronic post-traumatic stress disorder (PTSD) F43.12 and Epilepsy G40.909 [facility] [id number] [place] [address] 19740- 8946 Dec, [facility] [id number] [place] [address] 69102- 1117 Dec, [facility] [id number] [place] [address] 11592- 5423 Dec, [facility] [id number] [place] [address] 54443- 8049 Dec, Type 2 diabetes mellitus with hyperglycemia E11.65 ; 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 and Lumbago M54.5 [facility] [id number] [place] [address] 31356- 4946 Dec, [facility] [id number] [place] [address] 23589- 5515 Dec, [facility] [id number] [place] [address] 48364- 9099 Dec, [facility] [address] [place] [address] 17953 -2578 Dec, Pain of left leg M79.605 and Pain in right leg M79.604 [facility] [address] [address]- 6139 14 Dec, 2016 [facility] [id number] [place] [address] 42174- 8768 08 Dec, 2016 Type 2 diabetes mellitus with hyperglycemia E11.65 [facility] [id number] [place] [address] 70490- 8356 06 Dec, 2016 [facility] [id number] [place] [address] 11375- 3066 Dec, Type 2 diabetes mellitus with hyperglycemia E11.65 ; 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 ; Vagina, candidiasis B37.3 and Other chronic pain G89.29 [facility] [id number] [place] [address] 75298- 2752 Nov, Panic disorder with agoraphobia F40.01 [facility] [id number] [place] [address] 89533- 1959 Nov, [facility] [id number] [place] [address] 40499- 1381 Nov, [facility] [id number] [place] [address] 38873- 8509 Nov, Hypoglycemia E16.2 [facility] [id number] [place] [address] 76434- 1605 Nov, [facility] [id number] [place] [address] 10754- 7577 Nov, [facility] [id number] [place] [address] 73980- 7313 Nov, [facility] [id number] [place] [address] 67102- 4146 Nov, Type 2 diabetes mellitus with hyperglycemia E11.65 and assisted current use of insulin Z79.4 [facility] [id number] [place] [address] 57596- 0569 Nov, Panic disorder with agoraphobia F40.01 ; Bipolar 2 disorder F31.81 ; Chronic post-traumatic stress disorder (PTSD) F43.12 and Epilepsy G40.909 [facility] [address] [place] [address] 26144- 3030 Nov, Panic disorder with agoraphobia F40.01 [facility] [id number] [place] [address] 65819- 4835 Oct, [facility] [id number] [place] [address] 77635- 3595 Oct, [facility] [id number] [place] [address] 16004- 9251 Oct, Bipolar 2 disorder F31.81 ; Panic disorder with agoraphobia F40.01 and Mood disorder F39 [facility] [id number] [place] [address] 13796- 9763 Oct, Diabetes E11.9 ; Type 2 diabetes mellitus with hyperglycemia E11.65 and 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 [facility] [id number] [place] [address] 45451- 7179 Oct, [facility] [address] [place] [address] 30927- 7730 Sep, [facility] [address] [address] Sep, Bipolar 2 disorder F31.81 and Mood disorder F39 [facility] [id number] [place] [address] [id number]- 5662 Sep, [facility] [id number] [place] [address] 37849- 8804 Sep, Uncontrolled type 2 diabetes mellitus without complication, without long-term current use of insulin E11.65 [facility] [id number] [address] Sep, [facility] [id number] [address] Sep, [facility] [id number] [place] [address] [id number]- [phone] Sep, [facility] [id number] [place] [address] [id number]- 4604 Sep, [facility] [id number] [place] [address] [phone]- 0172 Sep, Bipolar 2 disorder F31.81 ; Chronic post-traumatic stress disorder (PTSD) F43.12 ; Panic disorder with agoraphobia F40.01 and Epilepsy G40.909 [facility] [id number] [place] [address] 06063- 7678 Sep, Bipolar 2 disorder F31.81 ; PTSD (post-traumatic stress disorder) F43.10 and Panic disorder with agoraphobia F40.01 [facility] [id number] [place] [address] [address] Sep, [facility] [id number] [place] [address] 75583- 0333 Aug, History of seizures Z87.898 ; Panic disorder with agoraphobia F40.01 and Bipolar 2 disorder F31.81 [facility] [address] [address] Aug, [facility] [address] [address] 17 Aug, 2016 [facility] [id number] [place] [address] 80585- 2085 Aug, [facility] [id number] [place] [address] 16802- 3060 Aug, [facility] [address] [address] 7592 Aug, [facility] [address] [place] [address] 97672- 6557 Aug, [facility] [id number] [place] [address] 83203- 4319 Aug, Hypoglycemia E16.2 and Bilateral impacted cerumen H61.23 [facility] [id number] [place] [address] 68711- 2517 Aug, [facility] [id number] [place] [address] 49394- 5345 Jul, [facility] [id number] [place] [address] 08052- 6582 Jul, [facility] [address] 42628- 3505 Jul, Bipolar 2 disorder F31.81 ; Panic disorder with agoraphobia F40.01 ; PTSD (post-traumatic stress disorder) F43.10 and Epilepsy G40.909 [address] 09067- 7653 Jul, [facility] [id number] [place] [address] 62409- 7077 Jul, Type 2 diabetes mellitus without complications E11.9 and Coughing R05 [facility] [id number] [place] [address] 59820- 7746 Jul, [facility] [id number] [place] [address] 32009- 1504 Jun, [facility] [id number] [place] [address] 46338- 7902 Jun, Bipolar 2 disorder F31.81 ; PTSD (post-traumatic stress disorder) F43.10 and Panic disorder with agoraphobia F40.01 [facility] [id number] [place] [address] 53643- 8351 Jun, [facility] [id number] [place] [address] 75729- 8734 Jun, [facility] [address] [place] [address] 5698 Jun, [facility] [id number] [place] [address] 18164- 6112 Jun, Type 2 diabetes mellitus without complications E11.9 and COPD (chronic obstructive pulmonary disease) J44.9 [facility] [address] [place] [address] [id number] May, Dental examination Z01.20 and Dental caries K02.9 [place] [facility] [id number] [place] [address] 64575- 0530 May, Bipolar 2 disorder F31.81 ; PTSD (post-traumatic stress disorder) F43.10 and Panic disorder with agoraphobia F40.01 [facility] [id number] [place] [address] 38778- 7898 May, Lumbago with sciatica, right side M54.41 ; Other chronic pain G89.29 and Uncontrolled type 2 diabetes mellitus without complication, without long-term current use of insulin E11.65 [facility] [id number] [place] [address] 43683- 4397 May, Chronic bronchitis, unspecified chronic bronchitis type J42 [facility] [id number] [place] [address] 78822- 6413 May, [facility] [id number] [place] [address] 31673- 0844 May, [facility] [id number] [place] [address] 13889- 0765 May, Chest pain, unspecified type R07.9 ; Tobacco use Z72.0 ; Type 2 diabetes mellitus without complications E11.9 ; Essential hypertension I10 ; Hyperlipidemia, unspecified hyperlipidemia type E78.5 ; Obesity (BMI 30- 39.9) E66.9 ; History of hypothyroidism Z86.39 ; Chronic obstructive pulmonary disease, unspecified COPD type J44.9 ; Anxiety F41.9 ; Bilateral claudication of lower limb I73.9 and Bipolar 2 disorder F31.81 [facility] [id number] [place] [address] 95437- 9016 05 May, 2016 Bipolar 2 disorder F31.81 ; Panic disorder with agoraphobia F40.01 and Tobacco abuse Z72.0 [facility] [id number] [place] [address] 37770- 9812 30 Apr, 2016 [address] [address] 61878- 6507 Apr, [place] [address] 37662- 1372 Apr, [place] [facility] [address] 32000- 4011 Apr, Bipolar 2 disorder F31.81 ; Panic disorder with agoraphobia F40.01 and PTSD (post-traumatic stress disorder) F43.10 [place] [address] 62389- 8818 Apr, Chronic bronchitis, unspecified chronic bronchitis type J42 ; Cervical neuritis M54.12 and Thoracic neuritis M54.14 [place] [address] 48771- 9247 Apr, [place] [facility] [address] 11498- 9085 15 Apr, 2016 Cervicalgia M54.2 [facility] [id number] [place] [address] 99628- 2393 14 Apr, 2016 Bipolar 2 disorder F31.81 ; Panic disorder with agoraphobia F40.01 and PTSD (post-traumatic stress disorder) F43.10 [facility] [address] [place] [address] 64488 -8094 13 Apr, 2016 [facility] [address] [place], [place] [id number] [place] [address] 12237 -2886 09 Apr, 2016 Cough R05 and Tobacco dependence F17.200 [address] [address] 31989- 7192 Apr, [facility] [facility] [address] [address]- 2666 Apr, [facility] [id number] [place] [address] 50265- 4770 March, Bipolar 2 disorder F31.81 ; Panic disorder with agoraphobia F40.01 and Generalized anxiety disorder F41.1 [facility] [id number] [place] [address] 86816- 7580 March, Closed displaced fracture of fifth metatarsal bone of right foot with routine healing, subsequent encounter S92.351D [facility] [id number] [place] [address] 61908- 9426 March, Bronchitis J40 [facility] [id number] [place] [address] 02549- 3933 March, [facility] [id number] [place] [address] 58026- 8114 March, [facility] [id number] [place] [address] 64425- 6519 March, Foot pain, right M79.671 ; Cervicalgia M54.2 and 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 mellitus 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, 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 [facility] [address] [address]- 2645 March, Fracture of fifth metatarsal bone of right foot S92.351A [facility] [facility] [address] [address]- 5693 March, [facility] [id number] [place] [address] 48652- 8507 Jan, Fracture of fifth metatarsal bone of right foot S92.351A [facility] [facility] [address] [address]- 8967 Jan, Bipolar 2 disorder F31.81 ; PTSD (post-traumatic stress disorder) F43.10 ; Panic disorder with agoraphobia F40.01 and Epilepsy G40.909 [address] [address] 07913- 9252 Jan, History of OK (myocardial infarction) I25.2 and History of high cholesterol Z86.39 [address] [address] 67717- 7595 Jan, Bipolar 2 disorder F31.81 ; Panic disorder with agoraphobia F40.01 ; Tobacco abuse Z72.0 and PTSD (post-traumatic stress disorder) F43.10 [address] [address] 71151- 6728 Jan, Fracture of fifth metatarsal bone of right foot S92.351A [address] [address] 90239- 3340 Jan, [facility] [facility] [address] 59683- 7522 Jan, History of high cholesterol Z86.39 [address] [address] 55364- 6678 Jan, History of OK (myocardial infarction) I25.2 [address] [address] 77711- 0309 Jan, [address] [address] 89273- 0320 Dec, Back pain M54.9 ; Diabetes E11.9 ; Right knee pain M25.561 and Chest pain R07.9 [address] [address] 15308- 9743 Dec, [address] [address] 97691- 8937 Dec, [address] [address] 53752- 0332 Dec, Cervicalgia M54.2 [facility] [id number] [place] [address] 27328- 6576 Dec, Bipolar 2 disorder F31.81 ; PTSD (post-traumatic stress disorder) F43.10 ; Panic disorder with agoraphobia F40.01 and Epilepsy G40.909 [facility] [id number] [place] [address] 81964- 4546 Dec, Bipolar 2 disorder F31.81 ; PTSD (post-traumatic stress disorder) F43.10 and Panic disorder with agoraphobia F40.01 [facility] [id number] [place] [address] 79775- 9543 Dec, Diabetes E11.9 [address] [address] 74832- 1800 Dec, [facility] [address] 42319- 0365 Dec, Other chronic pain G89.29 ; Hepatitis C B19.20 and History of seizures Z87.898 [facility] [id number] [place] [address] 27124- 6163 Dec, [facility] [address] 85330- 0479 Dec, Bipolar 2 disorder F31.81 and Other chronic pain G89.29 [facility] [id number] [place] [address] 72729- 6676 Dec, Cervicalgia M54.2 and Diabetes E11.9 [facility] [id number] [place] [address] 81907- 0667 Dec, [facility] [address] 70113- 9397 Dec, [facility] [id number] [place] [address] 77798- 6235 16 Dec, 2015 [facility] [address] 61937- 6749 16 Dec, 2015 [place] [id number] [place] [address] 18439- 7751 Dec, Type 2 diabetes mellitus without complications E11.9 [facility] [id number] [place] [address] 38647- 3985 10 Dec, 2015 [address] [facility] [address] 84447- 1709 Dec, History of seizures Z87.898 and Hepatitis C B19.20 [address] 48897- 4010 Dec, Hepatitis C B19.20 [address] [address] 99638- 2194 Dec, [address] [facility] [address] 89804- 7795 Dec, Cervicalgia M54.2 ; COPD (chronic obstructive pulmonary disease) J44.9 and Hepatitis C B19.20 [facility] [id number] [place] [address] 74833- 2434 Dec, Bipolar 2 disorder F31.81 ; History of hypertension Z86.79 ; History of anxiety Z86.59 ; Panic disorder with agoraphobia F40.01 and Epilepsy G40.909 [facility] [id number] [place] [address] 57820- 4510 Nov, [facility] [id number] [place] [address] 33593- 6211 Nov, [facility] [id number] [place] [address] 16115- 4792 Nov, History of seizures Z87.898 ; OAB (overactive bladder) N32.81 ; Lumbago M54.5 ; Other chronic pain G89.29 ; Cervicalgia M54.2 ; Tobacco abuse Z72.0 ; Tobacco abuse counseling Z71.6 and Impaired fasting glucose R73.01 [address] [place] [address] 77627- 9545 14 Nov, 2015 Bipolar 2 disorder F31.81 ; PTSD (post-traumatic stress disorder) F43.10 ; History of anxiety Z86.59 ; History of COPD Z87.09 ; Panic disorder with agoraphobia F40.01 and Moderate depressed bipolar I disorder F31.32 [facility] [id number] [place] [address] 29945- 9948 12 Nov, 2015 PTSD (post-traumatic stress disorder) F43.10 [facility] [id number] [place] [address] [id number] Nov, 2015 Dental examination Z01.20 and Dental caries K02.9 [facility] [id number] [place] [address] 12409- 4410 08 Nov, 2015 History of hypertension Z86.79 ; History of hypothyroidism Z86.39 ; History of high cholesterol Z86.39 ; History of COPD Z87.09 and Overactive bladder N32.81 [facility] [id number] [place] [address] 87682- 9398 Nov, Bipolar 2 disorder F31.81 and PTSD (post-traumatic stress disorder) F43.10 [facility] [id number] [place] [address] 09025- 6811 Nov, PTSD (post-traumatic stress disorder) F43.10 ; Panic disorder with agoraphobia F40.01 ; Epilepsy G40.909 and Moderate depressed bipolar I disorder F31.32 [facility] [id number] [place] [address] 15982- 4567 Nov, [address] 54432- 1163 Nov, [facility] [id number] [place] [address] 40385- 2262 Oct, [address] 67587- 1006 Oct, Generalized anxiety disorder F41.1 ; Major depression, recurrent F33.9 and PTSD (post-traumatic stress disorder) F43.10 [address] [address] 24727- 8481 Oct, Elevated fasting glucose R73.01 [address] [address] 66478- 3940 Oct, Elevated fasting glucose R73.01 [place] [address] 12645- 7001 Oct, History of COPD Z87.[address] 72329- 6688 Oct, General medical exam Z00.00 ; History of hypertension Z86.79 ; History of hypothyroidism Z86.39 ; History of hepatitis Z86.19 ; History of high cholesterol Z86.39 and History of seizures Z87.898 [address] [address] 32990- 2877 Oct, General medical exam Z00.00 ; History of hypertension Z86.79 ; History of hypothyroidism Z86.39 ; Bipolar 2 disorder F31.81 ; PTSD ( post-traumatic stress disorder) F43.10 ; History of hepatitis Z86.19 ; History of high cholesterol Z86.39 ; History of anxiety Z86.59 ; History of seizures Z87.898 ; History of OK (myocardial infarction) I25.2 and History of COPD Z87.09 [facility] [id number] [place] [address] 80146- 3901 Oct, Generalized anxiety disorder F41.1 ; Depression F32.9 and PTSD (post-traumatic stress disorder) F43.10 [facility] [id number] [place] [address] 13227- 9198 Jan, [id number] [place] [address] 88382- 3305 Jan, [facility] [id number] 2546 Jun, [facility] [address] [place] [id number] Jun, [facility] [address] [facility] [id number] [address]- 2546 May, [facility] [address] [facility] [id number] [address]- 2606 May, [facility] [address] [id number] May, [facility] [address] [facility] [id number] [address] 2546 May, [facility] [address] [id number] May, [facility] [address] [facility] [id number] [place] [address]- 6036 May, IMMUNIZATIONS No Known Immunizations SOCIAL HISTORY Never Assessed REASON FOR VISIT letter for [facility] [place] PLAN OF CARE VITAL SIGNS MEDICATIONS Unknown Medications RESULTS No Results PROCEDURES No Known procedures INSTRUCTIONS MEDICATIONS ADMINISTERED No Known Medications MEDICAL (GENERAL) HISTORY Type Description Date Medical History Hypothyroidism Medical History High cholesterol Medical History Hypertension Medical History Brain seizure Medical History Asthma Medical History COPD Medical History Hep C -2005 Medical History OK x 2 last in 2009 Medical History PTSD (post-traumatic stress disorder) Medical History Colon Cancer 2016 Medical History diabites II Surgical History tonsillectomy 1985 Surgical History partial hysterectomy 2004 Surgical History appendectomy 2004 Hospitalization History Surgery(s) only Hospitalization History pneumonia x3 days Hospitalization History Heart cath with stint 05/15/2016 Hospitalization History Diverticulitis, N/V-[facility] 01/28/17
--- OUTSIDE RECORDS SUMMARY | 2019-01-26 08:24 | XMS REPORT ---
Author Author GERARDO KISER [facility] Address [address] [place] [address] Care Team Providers Care Flexible Shaft Winder Name Role Phone MARGI GERARDO Unavailable PROBLEMS Type Condition ICD9-CM Code SYV69-JO Code Onset Dates Condition Status SNOMED Code Problem OAB (overactive bladder) N32.81 Active 976604911 Problem Epilepsy G40.909 Active 91748746 Problem Cervicalgia M54.2 Active 32431689 Problem Other chronic pain G89.29 Active 56071431 Problem Tobacco abuse Z72.0 Active 44717931 Problem Lumbago M54.5 Active 145281988 Problem Hepatitis C B19.20 Active 13246760 Problem COPD (chronic obstructive pulmonary disease) J44.9 Active 84867151 Problem Diabetes E11.9 Active 39549571 Problem Bipolar I disorder with duy F31.10 Active 39902149 Problem Type 2 diabetes mellitus without complications E11.9 Active 375014700 Problem Stress incontinence of urine N39.3 Active 49628554 Problem Bilateral claudication of lower limb I73.9 Active 545994958 Problem Seasonal allergic rhinitis due to other allergic trigger J30.89 Active 305309717 Problem Hyperlipidemia, unspecified hyperlipidemia type E78.5 Active 97173275 Problem Hypertension, unspecified type I10 Active 17957917 Problem Chronic tension-type headache, not intractable G44.229 Active 334862123 Problem Controlled type 2 diabetes mellitus without complication, without long -term current use of insulin E11.9 Active 399362394 Problem Type 2 diabetes mellitus with hyperglycemia E11.65 Active 720083064 Problem Chronic post-traumatic stress disorder (PTSD) F43.12 Active 636009767 Problem History of hypothyroidism Z86.39 Active 973927879 Problem Hypoglycemia E16.2 Active 725763638 Problem El's esophageal ulceration K22.10 Active 915383343 Problem Bipolar affective disorder, currently depressed, mild F31.31 Active 427192755 Problem Irritable bowel syndrome with diarrhea K58.0 Active 005455910 Problem Stress incontinence N39.3 Active 71777660 Problem History of hypertension Z86.79 Active 062333317 Problem Uncontrolled type 2 diabetes mellitus without complication, without long-term current use of insulin E11.65 Active 572614447 Problem Panic disorder with agoraphobia F40.01 Active 12836882 Problem Type 2 diabetes mellitus with hyperglycemia E11.65 Active 589743403 Problem History of seizures Z87.898 Active 566365647 Problem assisted current use of insulin Z79.4 Active 079264567 Problem History of MT (myocardial infarction) I25.2 Active 990337822 Problem Mood disorder F39 Active 90571920 Problem Bipolar 2 disorder F31.81 Active 52298574 Problem Gastritis and duodenitis K29.90 Active 428410592 Problem History of high cholesterol Z86.39 Active 833601478 Problem Bipolar I disorder with mood-congruent psychotic features F31.9 Active 077595850 Problem Hypertension, benign I10 Active 91018046 Problem Primary insomnia F51.01 Active 9076081 ALLERGIES No Information ENCOUNTERS Encounter Location Date Diagnosis [facility] [place] [id number] [place] [address] 42852- 8713 Jun, [facility] [place] [id number] [place] [address] 29819- 5454 May, [facility] [id number] [place] [address] [id number] May, [facility] [place] [id number] [place] [address] 85307- 5037 May, [facility] [place] [id number] [place] [address] 63711- 2581 May, [facility] [place] [id number] [place] [address] 77983- 5323 May, [facility] [place] [address] 29068- 5798 May, [facility] [place] [id number] [place] [address] 07098- 1692 May, Lumbago M54.5 [facility] [id number] [place] [address] 36865- 9137 May, [place] [address] 43301- 1161 Apr, Abnormal CT of the chest R93.8 [place] [id number] [place] [address] 27871- 7081 Apr, Bipolar 2 disorder F31.81 ; Chronic post-traumatic stress disorder (PTSD) F43.12 and Panic disorder with agoraphobia F40.01 [place] [id number] [place] [address] 87582- [address] Apr, [address] of the chest R93.8 [place] [id number] [place] [address] 88193- [address] Apr, [address] of the chest R93.8 [place] [address] 88618- 5130 Apr, [facility] [facility] [id number] [place] [address] 97111- 6108 Apr, Type 2 diabetes mellitus with hyperglycemia E11.65 [facility] [id number] [place] [address] 89797- 0426 Apr, Controlled type 2 diabetes mellitus without complication, without long-term current use of insulin E11.9 ; Watery eyes H04.203 ; Low back pain M54.5 ; Other chronic pain G89.29 ; Chronic tension-type headache, not intractable G44.229 ; Uncontrolled type 2 diabetes mellitus without complication , without long-term current use of insulin E11.65 and Bronchitis J40 [place] [id number] [place] [address] 86058- 9125 Apr, [place] [address] 12151- 7655 Apr, Lumbago M54.5 [place] [address] 57109- 5653 March, [facility] [address], [place] [address] March, Cough R05 ; Pneumonia due to infectious organism, unspecified laterality, unspecified part of lung J18.9 and Non-intractable vomiting with nausea, unspecified vomiting type R11.2 [facility] [place] [id number] [place] [address] 61715- 3876 March, Bronchitis J40 [place] [id number] [place] [address] 14452- 9335 March, [place] [id number] [place] [address] 83909- 0253 March, El's esophageal ulceration K22.10 and Type 2 diabetes mellitus with hyperglycemia E11.65 [facility] [id number] [place] [address] 51333- 4085 March, Panic disorder with agoraphobia F40.01 ; Chronic post- traumatic stress disorder (PTSD) F43.12 and Bipolar 2 disorder F31.81 [place] [id number] [place] [address] 48463- 9780 March, Type 2 diabetes mellitus with hyperglycemia E11.65 [facility] [place] [id number] [place] [address] 19132- 0673 March, [facility] [place] [id number] [place] [address] 93628- 3879 March, Lumbago M54.5 [place] [id number] [place] [address] 18345- 9190 March, [place] [id number] [place] [address] 47251- 3377 March, Irritable bowel syndrome with diarrhea K58.0 ; Primary insomnia F51.01 ; Type 2 diabetes mellitus with hyperglycemia E11.65 and 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 [place] [id number] [place] [address] 94013- 3955 March, [place] [id number] [place] [address] 95194- 0323 Jan, [facility] [place] [id number] [place] [address] 72993- 6410 Jan, [place] [id number] [place] [address] 85738- 7383 Jan, [facility] [place] [id number] [place] [address] 71782- 5719 Jan, [facility] [place] [id number] [place] [address] 03056- 6013 Jan, Dizziness R42 [place] [id number] [place] [address] 17465- 3442 Jan, Bipolar affective disorder, currently depressed, mild F31.31 ; Panic disorder with agoraphobia F40.01 and Chronic post-traumatic stress disorder (PTSD) F43.12 [place] [id number] [place] [address] 76088- 6478 Jan, Dizziness R42 [place] [id number] [place] [address] 92975- 9948 Jan, Chest pain, unspecified type R07.9 ; Exertional dyspnea R06.09 ; Hypertension, unspecified type I10 and Hyperlipidemia, unspecified hyperlipidemia type E78.5 [place] [id number] [place] [address] 71327- 2612 Jan, [place] [place] [id number] [place] [address] 83079- 3429 Jan, Lumbago M54.5 [place] [id number] [place] [address] 14919- 0485 Jan, El's esophageal ulceration K22.10 ; Blister (nonthermal ) of oral cavity, initial encounter S00.522A ; Local infection of the skin and subcutaneous tissue, unspecified L08.9 ; Type 2 diabetes mellitus with hyperglycemia E11.65 ; 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 and Stress incontinence N39.3 [facility] [place] [address] [address]- 7274 27 Dec, 2017 [facility] [place] [id number] [place] [address] 03152- 0061 27 Dec, 2017 [facility] [place] [id number] [place] [address] 99988- 5964 19 Dec, 2017 [facility] [id number] [place] [address] [phone] 16 Dec, 2017 Dental examination Z01.20 [facility] [place] [id number] [place] [address] 97257- 2132 15 Dec, 2017 Acute pain of right knee M25.561 [facility] [place] [id number] [place] [address] 65125- 7466 14 Dec, 2017 [facility] [place] [id number] [place] [address] 07709- 2152 Dec, [facility] [place] [id number] [place] [address] 67843- 9816 14 Dec, 2017 Lumbago M54.5 ; Acute pain of right knee M25.561 and Seasonal allergic rhinitis due to other allergic trigger J30.89 [facility] [place] [address] [place] [address] 57079- 3969 Dec, Type 2 diabetes mellitus with hyperglycemia E11.65 [facility] [place] [id number] [place] [address] 55643- 5684 Dec, [facility] [place] [id number] [place] [address] 73022- 5393 Dec, [facility] [place] [id number] [place] [address] 32872- 7866 23 Dec, 2017 [facility] [place] [id number] [place] [address] 53186- 2162 15 Dec, 2017 [facility] [place] [id number] [place] [address] 74639- 5315 15 Dec, 2017 Chronic post-traumatic stress disorder (PTSD) F43.12 and Panic disorder with agoraphobia F40.01 [facility] [place] [id number] [place] [address] 53752- 9331 13 Dec, 2017 Low back pain M54.5 [facility] [place] [id number] [place] [address] 22651- 3728 12 Dec, 2017 Type 2 diabetes mellitus with hyperglycemia E11.65 ; 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 ; Low back pain M54.5 ; Other chronic pain G89.29 and Encounter for therapeutic drug level monitoring Z51.81 [facility] [id number] [place] [address] 06485- 3012 09 Dec, 2017 Coughing R05 [place] [id number] [place] [address] 87341- 7366 09 Dec, 2017 [facility] [id number] [place] [address] [id number] Dec, 2017 Dental examination Z01.20 [place] [id number] [place] [address] 26271- 7513 Nov, Type 2 diabetes mellitus without complications E11.9 and Encounter for therapeutic drug level monitoring Z51.81 [facility] [place] [id number] [place] [address] 51501- 8694 Nov, [facility] [place] [id number] [place] [address] 16621- 9969 Oct, Type 2 diabetes mellitus without complications E11.9 [facility] [place] [id number] [place] [address] 26971- 2457 Oct, Type 2 diabetes mellitus with hyperglycemia E11.65 [facility] [place] [id number] [place] [address] 16089- 4433 Aug, Type 2 diabetes mellitus without complications E11.9 [facility] [place] [id number] [place] [address] 78647- 2887 Aug, Type 2 diabetes mellitus without complications E11.9 ; Hypoglycemia E16.2 ; Lumbago M54.5 ; Stress incontinence of urine N39.3 and History of MT (myocardial infarction) I25.2 [facility] [place] [id number] [place] [address] 51440- 3620 Jun, [facility] [place] [id number] [place] [address] 09677- 1422 May, [facility] [place] [id number] [place] [address] 87816- 1328 Apr, Panic disorder with agoraphobia F40.01 [facility] [place] [address] 86000- 1346 Apr, Panic disorder with agoraphobia F40.01 [facility] [place] [id number] [place] [address] 12296- 1410 Apr, [facility] [place] [id number] [place] [address] 98295- 7385 March, Other chronic pain G89.29 [facility] [place] [id number] [place] [address] 11458- 3894 March, [facility] [place] [id number] [place] [address] 06268- 0421 March, [facility] [place] [id number] [place] [address] 39737- 5916 March, [facility] [place] [id number] [place] [address] 65198- 2059 March, [facility] [place] [id number] [place] [address] 16620- 9378 March, Type 2 diabetes mellitus without complications E11.9 [facility] [place] [id number] [place] [address] 81026- 1844 March, Diarrhea, unspecified type R19.7 [facility] [place] [id number] [place] [address] 43221- 9497 March, Bipolar 2 disorder F31.81 ; Chronic post-traumatic stress disorder (PTSD) F43.12 and Type 2 diabetes mellitus with hyperglycemia E11.65 [place] [address], [place] [address]- 6327 March, [place] [id number] [place] [address] 94917- 8396 March, [place] [id number] [place] [address] 47229- 2057 March, Hypertension, benign I10 ; Type 2 diabetes mellitus with hyperglycemia E11.65 ; Hepatitis C B19.20 ; Gastritis and duodenitis K29.90 and Dysuria R30.0 [place] [address] [place] [address] 63900- 7403 March, Hypertension, benign I10 ; Type 2 diabetes mellitus with hyperglycemia E11.65 ; Hepatitis C B19.20 ; Gastritis and duodenitis K29.90 and Dysuria R30.0 [place] [address] [place] [address] 94690- 4728 March, Panic disorder with agoraphobia F40.01 ; Chronic post- traumatic stress disorder (PTSD) F43.12 ; Epilepsy G40.909 and Bipolar I disorder with mood-congruent psychotic features F31.9 [place] [address], [place] [address]- 5903 March, [place] [id number] [place] [address] 23274- 8576 March, Type 2 diabetes mellitus with hyperglycemia E11.65 [place] [id number] [place] [address] 91912- 2598 Jan, Bipolar I disorder with duy F31.10 [place] [address], [place] [address]- 1110 Jan, Bipolar 2 disorder F31.81 ; Chronic post-traumatic stress disorder (PTSD) F43.12 and Type 2 diabetes mellitus with hyperglycemia E11.65 [facility] [place] [address] [address]- 5445 17 Jan, 2017 [facility] [place] [address] [place] [address] 16177- 1120 17 Jan, 2017 [facility] [place] [address] [place] [address] 22787- 3373 14 Jan, 2017 Panic disorder with agoraphobia F40.01 [facility] [place] [id number] [place] [address] 05884- 9768 13 Jan, 2017 Panic disorder with agoraphobia F40.01 ; Bipolar I disorder with mood-congruent psychotic features F31.9 ; Chronic post-traumatic stress disorder (PTSD) F43.12 and Epilepsy G40.909 [facility] [place] [address] [place] [address] 18161- 0261 12 Jan, 2017 [facility] [place] [id number] [place] [address] 46146- 7149 Jan, [facility] [place] [id number] [place] [address] 03307- 7458 10 Jan, 2017 Type 2 diabetes mellitus without complications E11.9 and Hypoglycemia E16.2 [facility] [place] [address] [place] [address] 38109- 9906 07 Jan, 2017 Type 2 diabetes mellitus without complications E11.9 ; Primary insomnia F51.01 and Hypertension, benign I10 [facility] [place] [address], [place] [address]- 6531 06 Jan, 2017 [facility] [id number] [place] [address] [id number] Jan, [facility] [place] [address] [place] [address] 52358- 3526 31 Dec, 2016 Type 2 diabetes mellitus with hyperglycemia E11.65 [facility] [place] [address] [address]- 4391 Dec, [facility] [place] [id number] [place] [address] 59822- 1634 Dec, Bipolar 2 disorder F31.81 ; Panic disorder with agoraphobia F40.01 ; Chronic post-traumatic stress disorder (PTSD) F43.12 and Epilepsy G40.909 [facility] [place] [id number] [place] [address] 92400- 3029 Dec, [place] [id number] [place] [address] 57531- 8258 Dec, [place] [id number] [place] [address] 13149- 8242 Dec, Bipolar 2 disorder F31.81 ; Panic disorder with agoraphobia F40.01 ; Chronic post-traumatic stress disorder (PTSD) F43.12 and Epilepsy G40.909 [place] [id number] [place] [address] 86714- 7135 Dec, [place] [id number] [place] [address] 52612- 5225 Dec, [facility] [place] [id number] [place] [address] 11164- 2933 Dec, [place] [id number] [place] [address] 76770- 7017 Dec, Type 2 diabetes mellitus with hyperglycemia E11.65 ; 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 and Lumbago M54.5 [place] [id number] [place] [address] 11848- 7932 Dec, [place] [id number] [place] [address] 08989- 3379 Dec, [place] [id number] [place] [address] 08306- 9394 Dec, [facility] [id number] [place] [phone] Dec, Pain of left leg M79.605 and Pain in right leg M79.604 [place] [id number] [address] 14 Dec, 2016 [place] [address] [address] [id number] [place] [address] [phone] [phone] 08 Dec, 2016 Type 2 diabetes mellitus with hyperglycemia E11.65 [place] [address] [address] [id number] [place] [address] 70531- [phone] 06 Dec, 2016 [place] [address] [address] [id number] [place] [address] [phone]- 4915 Dec, Type 2 diabetes mellitus with hyperglycemia E11.65 ; 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 ; Vagina, candidiasis B37.3 and Other chronic pain G89.29 [place] [address] [address] [id number] [place] [address] [phone]- 3230 Nov, Panic disorder with agoraphobia F40.01 [place] [address] [address] [id number] [place] [address] [phone] Nov, [place] [address] [address] [id number] [place] [address] 10482- 3654 Nov, [place] [address] [address] [id number] [place] [address] 61320- 2861 Nov, Hypoglycemia E16.2 [place] [address] [address] [id number] [place] [address] 64822- 3838 Nov, [place] [address] [address] [id number] [place] [address] 31401- [phone] Nov, [place] [address] [address] [id number] [place] [address] [phone] Nov, [place] [address] [address] [id number] [place] [address] [phone]- 8771 Nov, Type 2 diabetes mellitus with hyperglycemia E11.65 and assisted current use of insulin Z79.4 [place] [address] [place] [id number] [place] [address] 06766- 2072 Nov, Panic disorder with agoraphobia F40.01 ; Bipolar 2 disorder F31.81 ; Chronic post-traumatic stress disorder (PTSD) F43.12 and Epilepsy G40.909 [facility] [place] [id number] [place] [address] 49004- 1166 Nov, Panic disorder with agoraphobia F40.01 [facility] [place] [id number] [place] [address] 86181- 5946 Oct, [facility] [place] [id number] [place] [address] 22371- 0894 Oct, [facility] [place] [id number] [place] [address] 64498- 4820 Oct, Bipolar 2 disorder F31.81 ; Panic disorder with agoraphobia F40.01 and Mood disorder F39 [place] [id number] [place] [address] 36979- 3906 Oct, Diabetes E11.9 ; Type 2 diabetes mellitus with hyperglycemia E11.65 and 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 [place] [id number] [place] [address] 02470- 9158 Oct, [facility] [place] [id number] [place] [address] 41752- 1459 Sep, [facility] [place] [address] [address] 8409 Sep, Bipolar 2 disorder F31.81 and Mood disorder F39 [facility] [place] [id number] [place] [address] 66235- 2093 Sep, [facility] [place] [id number] [place] [address] 22880- 4148 Sep, Uncontrolled type 2 diabetes mellitus without complication, without long-term current use of insulin E11.65 [facility] [place] [address] [address] 9086 Sep, [facility] [place] [id number] [address] 1576 Sep, [facility] [place] [id number] [place] [address] 70071- 0437 Sep, [facility] [place] [id number] [place] [address] 80117- 0641 Sep, [facility] [place] [id number] [place] [address] 78149- 5016 Sep, Bipolar 2 disorder F31.81 ; Chronic post-traumatic stress disorder (PTSD) F43.12 ; Panic disorder with agoraphobia F40.01 and Epilepsy G40.909 [facility] [place] [id number] [place] [address] 84205- 0514 Sep, Bipolar 2 disorder F31.81 ; PTSD (post-traumatic stress disorder) F43.10 and Panic disorder with agoraphobia F40.01 [facility] [place] [id number] [place] [address] 82714- 8962 Sep, [facility] [place] [id number] [place] [address] 65853- 7010 Aug, History of seizures Z87.898 ; Panic disorder with agoraphobia F40.01 and Bipolar 2 disorder F31.81 [facility] [place] [address] [address]- 1677 Aug, [facility] [place] [address] [address]- 6941 17 Aug, 2016 [facility] [place] [id number] [place] [address] 07954- 7347 Aug, [facility] [place] [id number] [place] [address] 35711- 5095 Aug, [facility] [place] [address] [address]- 3878 Aug, [facility] [place] [id number] [place] [address] 95259- 0621 Aug, [facility] [place] [id number] [place] [address] 27857- 2158 Aug, Hypoglycemia E16.2 and Bilateral impacted cerumen H61.23 [facility] [place] [id number] [place] [address] 03061- 5727 Aug, [facility] [place] [id number] [place] [address] 16825- 1823 Jul, [facility] [place] [id number] [place] [address] 51972- 5717 Jul, [facility] [place] [address] 22668- 6104 Jul, Bipolar 2 disorder F31.81 ; Panic disorder with agoraphobia F40.01 ; PTSD (post-traumatic stress disorder) F43.10 and Epilepsy G40.909 [place] [address] 68293- 0156 Jul, [facility] [place] [id number] [place] [address] 64531- 9842 Jul, Type 2 diabetes mellitus without complications E11.9 and Coughing R05 [facility] [place] [id number] [place] [address] 98019- 6014 Jul, [facility] [place] [id number] [place] [address] 23855- 4396 Jun, [facility] [place] [id number] [place] [address] 75308- 9095 Jun, Bipolar 2 disorder F31.81 ; PTSD (post-traumatic stress disorder) F43.10 and Panic disorder with agoraphobia F40.01 [facility] [place] [id number] [place] [address] 83153- 5069 Jun, [facility] [place] [id number] [place] [address] 94219- 0186 Jun, [facility] [place] [address] [place] [address]- 4477 Jun, [place] [id number] [place] [address] 98025- 3416 Jun, Type 2 diabetes mellitus without complications E11.9 and COPD (chronic obstructive pulmonary disease) J44.9 [facility] [id number] [place] [address] [id number] May, Dental examination Z01.20 and Dental caries K02.9 [place] [id number] [place] [address] 91407- 1854 May, Bipolar 2 disorder F31.81 ; PTSD (post-traumatic stress disorder) F43.10 and Panic disorder with agoraphobia F40.01 [place] [id number] [place] [address] 39016- 3395 May, Lumbago with sciatica, right side M54.41 ; Other chronic pain G89.29 and Uncontrolled type 2 diabetes mellitus without complication, without long-term current use of insulin E11.65 [place] [id number] [place] [address] 89473- 2977 May, Chronic bronchitis, unspecified chronic bronchitis type J42 [place] [id number] [place] [address] 13183- 5161 May, [place] [id number] [place] [address] 50924- 1475 May, [place] [id number] [place] [address] 93137- 3584 May, Chest pain, unspecified type R07.9 ; Tobacco use Z72.0 ; Type 2 diabetes mellitus without complications E11.9 ; Essential hypertension I10 ; Hyperlipidemia, unspecified hyperlipidemia type E78.5 ; Obesity (BMI 30- 39.9) E66.9 ; History of hypothyroidism Z86.39 ; Chronic obstructive pulmonary disease, unspecified COPD type J44.9 ; Anxiety F41.9 ; Bilateral claudication of lower limb I73.9 and Bipolar 2 disorder F31.81 [place] [id number] [place] [address] 47477- 4172 05 May, 2016 Bipolar 2 disorder F31.81 ; Panic disorder with agoraphobia F40.01 and Tobacco abuse Z72.0 [place] [id number] [place] [address] 94121- 8882 30 Apr, 2016 [place] [address] 75002- 4316 Apr, [place] [address] 57109- 8098 Apr, [place] [address] 44871- 4704 Apr, Bipolar 2 disorder F31.81 ; Panic disorder with agoraphobia F40.01 and PTSD (post-traumatic stress disorder) F43.10 [place] [address] 25240- 7625 Apr, Chronic bronchitis, unspecified chronic bronchitis type J42 ; Cervical neuritis M54.12 and Thoracic neuritis M54.14 [place] [address] 63636- 9773 Apr, [place] [address] 14098- 8537 15 Apr, 2016 Cervicalgia M54.2 [place] [id number] [place] [address] 86838- 9467 14 Apr, 2016 Bipolar 2 disorder F31.81 ; Panic disorder with agoraphobia F40.01 and PTSD (post-traumatic stress disorder) F43.10 [facility] [address] [place] [address] 47060 -3796 13 Apr, 2016 [facility] [address] [place] [id number] [place] [address] 22310 -3547 09 Apr, 2016 Cough R05 and Tobacco dependence F17.200 [place] [address] 12032- 8211 Apr, [place] [address] [address]- 8367 Apr, [place] [id number] [place] [address] 49974- 9829 March, Bipolar 2 disorder F31.81 ; Panic disorder with agoraphobia F40.01 and Generalized anxiety disorder F41.1 [place] [id number] [place] [address] 28266- 2285 March, Closed displaced fracture of fifth metatarsal bone of right foot with routine healing, subsequent encounter S92.351D [place] [id number] [place] [address] 38139- 5212 March, Bronchitis J40 [place] [id number] [place] [address] 24232- 7184 March, [place] [id number] [place] [address] 77090- 6289 March, [place] [id number] [place] [address] 14909- 0935 March, Foot pain, right M79.671 ; Cervicalgia M54.2 and Controlled type 2 diabetes mellitus without complication, 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 [place] [address], [place] [address]- 2158 March, Fracture of fifth metatarsal bone of right foot S92.351A [place] [address] [address]- 7374 March, [place] [id number] [place] [address] 40218- 2493 Jan, Fracture of fifth metatarsal bone of right foot S92.351A [place] [address], [place] [address]- 8169 Jan, Bipolar 2 disorder F31.81 ; PTSD (post-traumatic stress disorder) F43.10 ; Panic disorder with agoraphobia F40.01 and Epilepsy G40.909 [place] [address] 69779- 8621 Jan, History of MT (myocardial infarction) I25.2 and History of high cholesterol Z86.39 [place] [address] 34335- 8792 Jan, Bipolar 2 disorder F31.81 ; Panic disorder with agoraphobia F40.01 ; Tobacco abuse Z72.0 and PTSD (post-traumatic stress disorder) F43.10 [place] [address] 29697- 9706 Jan, Fracture of fifth metatarsal bone of right foot S92.351A [place] [address] 23838- 2071 Jan, [place] [address] 23360- 7227 Jan, History of high cholesterol Z86.39 [place] [address] 56199- 0176 Jan, History of MT (myocardial infarction) I25.2 [place] [address] 27900- 5709 Jan, [place] [address] 94566- 1458 Dec, Back pain M54.9 ; Diabetes E11.9 ; Right knee pain M25.561 and Chest pain R07.9 [place] [address] 66113- 6588 Dec, [place] [address] 63289- 8963 Dec, [place] [address] 41314- 1108 Dec, Cervicalgia M54.2 [place] [id number] [place] [address] 16314- 1916 Dec, Bipolar 2 disorder F31.81 ; PTSD (post-traumatic stress disorder) F43.10 ; Panic disorder with agoraphobia F40.01 and Epilepsy G40.909 [facility] [place] [id number] [place] [address] 32794- 4125 Dec, Bipolar 2 disorder F31.81 ; PTSD (post-traumatic stress disorder) F43.10 and Panic disorder with agoraphobia F40.01 [facility] [place] [id number] [place] [address] 38012- 7413 Dec, Diabetes E11.9 [place] [address] 83514- 1459 Dec, [facility] [place] [address] 49605- 5210 Dec, Other chronic pain G89.29 ; Hepatitis C B19.20 and History of seizures Z87.898 [facility] [place] [id number] [place] [address] 92230- 4155 Dec, [facility] [place] [address] 09410- 6305 Dec, Bipolar 2 disorder F31.81 and Other chronic pain G89.29 [facility] [place] [id number] [place] [address] 55318- 5395 Dec, Cervicalgia M54.2 and Diabetes E11.9 [facility] [place] [id number] [place] [address] 00515- 8736 Dec, [facility] [place] [address] 46724- 1404 Dec, [facility] [place] [id number] [place] [address] 55551- 9921 16 Dec, 2015 [facility] [place] [address] 76489- 3524 16 Dec, 2015 [place] [id number] [place] [address] 93186- 0228 Dec, Type 2 diabetes mellitus without complications E11.9 [place] [id number] [place] [address] 97079- 3628 10 Dec, 2015 [place] [address] 70125- 0215 Dec, History of seizures Z87.898 and Hepatitis C B19.20 [place] [address] 39251- 5890 Dec, Hepatitis C B19.20 [place] [address] 35405- 6425 Dec, [place] [address] 44176- 7957 Dec, Cervicalgia M54.2 ; COPD (chronic obstructive pulmonary disease) J44.9 and Hepatitis C B19.20 [place] [id number] [place] [address] 56314- 9146 Dec, Bipolar 2 disorder F31.81 ; History of hypertension Z86.79 ; History of anxiety Z86.59 ; Panic disorder with agoraphobia F40.01 and Epilepsy G40.909 [place] [id number] [place] [address] 67695- 4736 Nov, [place] [id number] [place] [address] 45499- 2642 Nov, [place] [id number] [place] [address] 52532- 5526 Nov, History of seizures Z87.898 ; OAB (overactive bladder) N32.81 ; Lumbago M54.5 ; Other chronic pain G89.29 ; Cervicalgia M54.2 ; Tobacco abuse Z72.0 ; Tobacco abuse counseling Z71.6 and Impaired fasting glucose R73.01 [place] [address] [place] [address] 01298- 0627 14 Nov, 2015 Bipolar 2 disorder F31.81 ; PTSD (post-traumatic stress disorder) F43.10 ; History of anxiety Z86.59 ; History of COPD Z87.09 ; Panic disorder with agoraphobia F40.01 and Moderate depressed bipolar I disorder F31.32 [place] [id number] [place] [address] 03258- 5164 12 Nov, 2015 PTSD (post-traumatic stress disorder) F43.10 [facility] [id number] [place] [address] [id number] 11 Nov, 2015 Dental examination Z01.20 and Dental caries K02.9 [place] [id number] [place] [address] 13811- 9966 08 Nov, 2015 History of hypertension Z86.79 ; History of hypothyroidism Z86.39 ; History of high cholesterol Z86.39 ; History of COPD Z87.09 and Overactive bladder N32.81 [place] [id number] [place] [address] 46787- 7499 Nov, Bipolar 2 disorder F31.81 and PTSD (post-traumatic stress disorder) F43.10 [place] [id number] [place] [address] 66658- 2222 Nov, PTSD (post-traumatic stress disorder) F43.10 ; Panic disorder with agoraphobia F40.01 ; Epilepsy G40.909 and Moderate depressed bipolar I disorder F31.32 [place] [id number] [place] [address] 38002- 6808 Nov, [address] 40043- 1606 Nov, [place] [id number] [place] [address] 08607- 3087 Oct, [address] 06304- 0411 Oct, Generalized anxiety disorder F41.1 ; Major depression, recurrent F33.9 and PTSD (post-traumatic stress disorder) F43.10 [place] [address] 66115- 8673 Oct, Elevated fasting glucose R73.01 [place] [address] 04884- 1541 Oct, Elevated fasting glucose R73.01 [place] [address] 60703- 1799 Oct, History of COPD Z87.[address] 53629- 4251 Oct, General medical exam Z00.00 ; History of hypertension Z86.79 ; History of hypothyroidism Z86.39 ; History of hepatitis Z86.19 ; History of high cholesterol Z86.39 and History of seizures Z87.898 [place] [address] 89894- 2458 Oct, General medical exam Z00.00 ; History of hypertension Z86.79 ; History of hypothyroidism Z86.39 ; Bipolar 2 disorder F31.81 ; PTSD ( post-traumatic stress disorder) F43.10 ; History of hepatitis Z86.19 ; History of high cholesterol Z86.39 ; History of anxiety Z86.59 ; History of seizures Z87.898 ; History of MT (myocardial infarction) I25.2 and History of COPD Z87.09 [place] [id number] [place] [address] 35078- 6371 Oct, Generalized anxiety disorder F41.1 ; Depression F32.9 and PTSD (post-traumatic stress disorder) F43.10 [place] [id number] [place] [address] 00040- 1404 Jan, [place] [id number] [place] [address] 01423- 7004 Jan, [place] [address] [id number] 2546 Jun, [facility] [address] [id number] Jun, [facility] [place] [address] [facility] [id number] [address]- 2546 May, [facility] [place] [address] [facility] [id number] [address]- 1716 May, [facility] [address] [id number] May, [facility] [place] [address] [facility] [id number], [place] [address]- 2546 May, [facility] [address] [id number] May, [facility] [place] [address] [facility] [id number] [address]- 3266 May, IMMUNIZATIONS No Known Immunizations SOCIAL HISTORY Never Assessed REASON FOR VISIT MTM (Medication Therapy Management) PLAN OF CARE VITAL SIGNS MEDICATIONS Unknown [...]
--- OUTSIDE RECORDS SUMMARY | 2019-01-26 08:25 | XMS REPORT ---
Author Author GERARDO KISER [facility] Address [address] [place] [address] Care Team Providers Care [employer] Name Role Phone MARGI GERARDO Unavailable PROBLEMS Type Condition ICD9-CM Code EMI27-XA Code Onset Dates Condition Status SNOMED Code Problem OAB (overactive bladder) N32.81 Active 864225515 Problem Epilepsy G40.909 Active 40211823 Problem Cervicalgia M54.2 Active 00692157 Problem Other chronic pain G89.29 Active 67411417 Problem Tobacco abuse Z72.0 Active 57790009 Problem Lumbago M54.5 Active 129071733 Problem Hepatitis C B19.20 Active 47430021 Problem COPD (chronic obstructive pulmonary disease) J44.9 Active 99345058 Problem Diabetes E11.9 Active 33606407 Problem Bipolar I disorder with duy F31.10 Active 09540446 Problem Type 2 diabetes mellitus without complications E11.9 Active 457778112 Problem Stress incontinence of urine N39.3 Active 38631274 Problem Bilateral claudication of lower limb I73.9 Active 042010377 Problem Seasonal allergic rhinitis due to other allergic trigger J30.89 Active 210860113 Problem Hyperlipidemia, unspecified hyperlipidemia type E78.5 Active 39225980 Problem Hypertension, unspecified type I10 Active 51038479 Problem Chronic tension-type headache, not intractable G44.229 Active 162514361 Problem Controlled type 2 diabetes mellitus without complication, without long -term current use of insulin E11.9 Active 192193575 Problem Type 2 diabetes mellitus with hyperglycemia E11.65 Active 479750817 Problem Chronic post-traumatic stress disorder (PTSD) F43.12 Active 638536617 Problem History of hypothyroidism Z86.39 Active 184794745 Problem Hypoglycemia E16.2 Active 028043593 Problem El's esophageal ulceration K22.10 Active 961099533 Problem Bipolar affective disorder, currently depressed, mild F31.31 Active 748312178 Problem Irritable bowel syndrome with diarrhea K58.0 Active 484539951 Problem Stress incontinence N39.3 Active 62213091 Problem History of hypertension Z86.79 Active 090520537 Problem Uncontrolled type 2 diabetes mellitus without complication, without long-term current use of insulin E11.65 Active 969229033 Problem Panic disorder with agoraphobia F40.01 Active 79025073 Problem Type 2 diabetes mellitus with hyperglycemia E11.65 Active 541125512 Problem History of seizures Z87.898 Active 650713993 Problem custodial current use of insulin Z79.4 Active 752298178 Problem History of ID (myocardial infarction) I25.2 Active 958449402 Problem Mood disorder F39 Active 68886570 Problem Bipolar 2 disorder F31.81 Active 16815808 Problem Gastritis and duodenitis K29.90 Active 373705369 Problem History of high cholesterol Z86.39 Active 311984461 Problem Bipolar I disorder with mood-congruent psychotic features F31.9 Active 437726280 Problem Hypertension, benign I10 Active 35399956 Problem Primary insomnia F51.01 Active 1051832 ALLERGIES No Information ENCOUNTERS Encounter Location Date Diagnosis [facility] [id number] [place] [address] 88933- 4805 Jun, [facility] [id number] [place] [address] 68544- 5426 May, [facility] [id number] [place] [address] [id number] May, [facility] [id number] [place] [address] 99903- 1543 May, [facility] [id number] [place] [address] 81786- 7300 May, [facility] [id number] [place] [address] 01183- 9133 May, [facility] [address] 06538- 5344 May, [facility] [id number] [place] [address] 47865- 8468 May, Lumbago M54.5 [facility] [address] [place] [address] 31293- 8614 May, [facility] [address] 14636- [address] Apr, [address] of the chest R93.8 [facility] [id number] [place] [address] 01785- 5657 Apr, Bipolar 2 disorder F31.81 ; Chronic post-traumatic stress disorder (PTSD) F43.12 and Panic disorder with agoraphobia F40.01 [facility] [id number] [place] [address] 05210- [address] Apr, [address] of the chest R93.8 [facility] [id number] [place] [address] 61278- [address] Apr, [address] of the chest R93.8 [facility] [address] 32827- 7180 Apr, [facility] [id number] [place] [address] 73875- 0664 Apr, Type 2 diabetes mellitus with hyperglycemia E11.65 [facility] [id number] [place] [address] 98091- 8450 Apr, Controlled type 2 diabetes mellitus without complication, without long-term current use of insulin E11.9 ; Watery eyes H04.203 ; Low back pain M54.5 ; Other chronic pain G89.29 ; Chronic tension-type headache, not intractable G44.229 ; Uncontrolled type 2 diabetes mellitus without complication , without long-term current use of insulin E11.65 and Bronchitis J40 [facility] [id number] [place] [address] 19786- 5582 Apr, [facility] [address] 62575- 4212 Apr, Lumbago M54.5 [facility] [address] 06417- 5755 March, [facility] [address] [place] [address] March, Cough R05 ; Pneumonia due to infectious organism, unspecified laterality, unspecified part of lung J18.9 and Non-intractable vomiting with nausea, unspecified vomiting type R11.2 [facility] [id number] [place] [address] 62664- 9549 March, Bronchitis J40 [facility] [id number] [place] [address] 43681- 7429 March, [facility] [id number] [place] [address] 23223- 2999 March, El's esophageal ulceration K22.10 and Type 2 diabetes mellitus with hyperglycemia E11.65 [facility] [id number] [place] [address] 21288- 0940 March, Panic disorder with agoraphobia F40.01 ; Chronic post- traumatic stress disorder (PTSD) F43.12 and Bipolar 2 disorder F31.81 [facility] [id number] [place] [address] 09022- 0734 March, Type 2 diabetes mellitus with hyperglycemia E11.65 [facility] [id number] [place] [address] 93134- 1888 March, [facility] [id number] [place] [address] 04467- 5095 March, Lumbago M54.5 [facility] [id number] [place] [address] 63424- 5192 March, [facility] [id number] [place] [address] 15288- 5489 March, Irritable bowel syndrome with diarrhea K58.0 ; Primary insomnia F51.01 ; Type 2 diabetes mellitus with hyperglycemia E11.65 and 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 [id number] [place] [address] 36719- 2574 Jan, [facility] [id number] [place] [address] 19724- 3869 Jan, [facility] [id number] [place] [address] 37012- 5906 Jan, [facility] [id number] [place] [address] 32032- 1878 Jan, Dizziness R42 [facility] [id number] [place] [address] 88814- 5536 Jan, Bipolar affective disorder, currently depressed, mild F31.31 ; Panic disorder with agoraphobia F40.01 and Chronic post-traumatic stress disorder (PTSD) F43.12 [facility] [id number] [place] [address] 47370- 2223 Jan, Dizziness R42 [facility] [id number] [place] [address] 13760- 1802 Jan, Chest pain, unspecified type R07.9 ; Exertional dyspnea R06.09 ; Hypertension, unspecified type I10 and Hyperlipidemia, unspecified hyperlipidemia type E78.5 [facility] [id number] [place] [address] 10736- 6293 Jan, [facility] [id number] [place] [address] 16119- 3824 Jan, Lumbago M54.5 [facility] [id number] [place] [address] 50035- 2421 Jan, El's esophageal ulceration K22.10 ; Blister (nonthermal ) of oral cavity, initial encounter S00.522A ; Local infection of the skin and subcutaneous tissue, unspecified L08.9 ; Type 2 diabetes mellitus with hyperglycemia E11.65 ; 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 [address], [place] [address] 9389 27 Dec, 2017 [facility] [id number] [place] [address] 86169- 3155 27 Dec, 2017 [facility] [id number] [place] [address] 72699- 5353 19 Dec, 2017 [facility] [id number] [place] [address] [id number] 16 Dec, [address] [facility] [id number] [place] [address] 43312- 1858 15 Dec, 2017 Acute pain of right knee M25.561 [facility] [id number] [place] [address] 97942- 7102 14 Dec, 2017 [facility] [id number] [place] [address] 38723- 6801 Dec, [facility] [id number] [place] [address] 84615- 9418 14 Dec, 2017 Lumbago M54.5 ; Acute pain of right knee M25.561 and Seasonal allergic rhinitis due to other allergic trigger J30.89 [facility] [address] [place] [address] 26348- 3711 Dec, Type 2 diabetes mellitus with hyperglycemia E11.65 [facility] [id number] [place] [address] 88617- 9238 Dec, [facility] [id number] [place] [address] 00138- 7237 Dec, [facility] [id number] [place] [address] 23671- 6455 23 Dec, 2017 [facility] [id number] [place] [address] 40751- 0939 15 Dec, 2017 [facility] [id number] [place] [address] 41390- 1962 15 Dec, 2017 Chronic post-traumatic stress disorder (PTSD) F43.12 and Panic disorder with agoraphobia F40.01 [facility] [id number] [place] [address] 49747- 0582 13 Dec, 2017 Low back pain M54.5 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 ; Low back pain M54.5 ; Other chronic pain G89.29 and Encounter for therapeutic drug level monitoring Z51.81 [facility] [id number] [place] [address] 55955- 3622 09 Dec, 2017 Coughing R05 [facility] [id number] [place] [address] 97558- 5630 09 Dec, 2017 [facility] [id number] [place] [address] [phone] 07 Dec, 2017 Dental examination Z01.20 [facility] [id number] [place] [address] 55053- 2187 Nov, Type 2 diabetes mellitus without complications E11.9 and Encounter for therapeutic drug level monitoring Z51.81 [facility] [id number] [place] [address] 06573- 7454 Nov, [facility] [id number] [place] [address] 13861- 3455 Oct, Type 2 diabetes mellitus without complications E11.9 [facility] [id number] [place] [address] 91715- 7854 Oct, Type 2 diabetes mellitus with hyperglycemia E11.65 [facility] [id number] [place] [address] 76682- 6086 Aug, Type 2 diabetes mellitus without complications E11.9 [facility] [id number] [place] [address] 84330- 1397 Aug, Type 2 diabetes mellitus without complications E11.9 ; Hypoglycemia E16.2 ; Lumbago M54.5 ; Stress incontinence of urine N39.3 and History of ID (myocardial infarction) I25.2 [facility] [id number] [place] [address] 55020- 1938 Jun, [facility] [id number] [place] [address] 30775- 9914 May, [facility] [id number] [place] [address] 73313- 2032 Apr, Panic disorder with agoraphobia F40.01 [facility] [address] 09930- 8253 Apr, Panic disorder with agoraphobia F40.01 [facility] [id number] [place] [address] 98751- 2140 Apr, [facility] [id number] [place] [address] 28662- 1912 March, Other chronic pain G89.29 [facility] [id number] [place] [address] 84333- 4700 March, [facility] [id number] [place] [address] 34880- 4778 March, [facility] [id number] [place] [address] 21791- 3950 March, [facility] [id number] [place] [address] 92510- 7013 March, [facility] [id number] [place] [address] 18544- 2851 March, Type 2 diabetes mellitus without complications E11.9 [facility] [id number] [place] [address] 70282- 4114 March, Diarrhea, unspecified type R19.7 [facility] [id number] [place] [address] 90098- 4589 March, Bipolar 2 disorder F31.81 ; Chronic post-traumatic stress disorder (PTSD) F43.12 and Type 2 diabetes mellitus with hyperglycemia E11.65 [facility] [address], [place] [address]- 8515 March, [facility] [id number] [place] [address] 43981- 8303 March, [facility] [id number] [place] [address] 17607- 5431 March, Hypertension, benign I10 ; Type 2 diabetes mellitus with hyperglycemia E11.65 ; Hepatitis C B19.20 ; Gastritis and duodenitis K29.90 and Dysuria R30.0 [facility] [address] [place] [address] 43551- 8181 March, Hypertension, benign I10 ; Type 2 diabetes mellitus with hyperglycemia E11.65 ; Hepatitis C B19.20 ; Gastritis and duodenitis K29.90 and Dysuria R30.0 [facility] [address] [place] [address] 66597- 4917 March, Panic disorder with agoraphobia F40.01 ; Chronic post- traumatic stress disorder (PTSD) F43.12 ; Epilepsy G40.909 and Bipolar I disorder with mood-congruent psychotic features F31.9 [facility] [address], [place] [address]- 0574 March, [facility] [id number] [place] [address] 90911- 0920 March, Type 2 diabetes mellitus with hyperglycemia E11.65 [facility] [id number] [place] [address] 57609- 5293 Jan, Bipolar I disorder with duy F31.10 [facility] [address], [place] [address]- 9687 Jan, Bipolar 2 disorder F31.81 ; Chronic post-traumatic stress disorder (PTSD) F43.12 and Type 2 diabetes mellitus with hyperglycemia E11.65 [facility] [address], [place] [address]- 6788 17 Jan, 2017 [facility] [address] [place] [address] 98002- 5563 17 Jan, 2017 [facility] [address] [place] [address] 99490- 4423 14 Jan, 2017 Panic disorder with agoraphobia F40.01 [facility] [id number] [place] [address] 33403- 5144 13 Jan, 2017 Panic disorder with agoraphobia F40.01 ; Bipolar I disorder with mood-congruent psychotic features F31.9 ; Chronic post-traumatic stress disorder (PTSD) F43.[address] [facility] [address] [place] [address] 88274- 1618 12 Jan, 2017 [facility] [id number] [place] [address] 24591- 2303 Jan, [facility] [id number] [place] [address] 81256- 2646 10 Jan, 2017 Type 2 diabetes mellitus without complications E11.[address] [facility] [address] [place] [address] 52654- 4298 07 Jan, 2017 Type 2 diabetes mellitus without complications E11.9 ; Primary insomnia F51.01 and Hypertension, benign I10 [facility] [address], [place] [address]- 1935 06 Jan, 2017 [facility] [id number] [place] [address] [id number] Jan, [facility] [address] [place] [address] 54967- 0187 31 Dec, 2016 Type 2 diabetes mellitus with hyperglycemia E11.65 [facility] [address], [place] [address]- 6946 Dec, [facility] [id number] [place] [address] 77707- 2762 Dec, Bipolar 2 disorder F31.81 ; Panic disorder with agoraphobia F40.01 ; Chronic post-traumatic stress disorder (PTSD) F43.[address] [facility] [id number] [place] [address] 83615- 8492 Dec, [facility] [id number] [place] [address] 81854- 9894 Dec, [facility] [id number] [place] [address] 54576- 8844 Dec, Bipolar 2 disorder F31.81 ; Panic disorder with agoraphobia F40.01 ; Chronic post-traumatic stress disorder (PTSD) F43.12 and Epilepsy G40.909 [facility] [id number] [place] [address] 49931- 3735 Dec, [facility] [id number] [place] [address] 38926- 9430 Dec, 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 and Lumbago M54.5 [facility] [id number] [place] [address] 09461- 5421 Dec, [facility] [id number] [place] [address] 00152- 7838 Dec, [facility] [id number] [place] [address] 12065- 5998 Dec, [facility] [address] [place] [address] 51051 -7075 Dec, Pain of left leg M79.605 and Pain in right leg M79.604 [facility] [address], [place] [address]- 9385 14 Dec, 2016 [facility] [id number] [place] [address] 50346- 1985 08 Dec, 2016 Type 2 diabetes mellitus with hyperglycemia E11.65 [facility] [id number] [place] [address] 18023- 4411 06 Dec, 2016 [facility] [id number] [place] [address] 74705- 2228 Dec, Type 2 diabetes mellitus with hyperglycemia E11.65 ; 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 ; Vagina, candidiasis B37.3 and Other chronic pain G89.29 [facility] [id number] [place] [address] 88020- 6061 Nov, Panic disorder with agoraphobia F40.01 [facility] [id number] [place] [address] 98474- 3931 Nov, [facility] [id number] [place] [address] 39348- 9364 Nov, [facility] [id number] [place] [address] 02974- 1144 Nov, Hypoglycemia E16.2 [facility] [id number] [place] [address] 44627- 2392 Nov, [facility] [id number] [place] [address] 27880- 9565 Nov, [facility] [id number] [place] [address] 35919- 4468 Nov, [facility] [id number] [place] [address] 80144- 2950 Nov, Type 2 diabetes mellitus with hyperglycemia E11.65 and custodial current use of insulin Z79.4 [facility] [id number] [place] [address] 11650- 2786 Nov, Panic disorder with agoraphobia F40.01 ; Bipolar 2 disorder F31.81 ; Chronic post-traumatic stress disorder (PTSD) F43.[address] [facility] [address] [place] [address] 48055- 8319 Nov, Panic disorder with agoraphobia F40.01 [facility] [id number] [place] [address] 83119- 6127 Oct, [facility] [id number] [place] [address] 01967- 5219 Oct, 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 [id number] [place] [address] 67386- 0808 Sep, [facility] [address], [place] [address]- 9939 Sep, Bipolar 2 disorder F31.81 and Mood disorder F39 [facility] [id number] [place] [address] 13443- 3339 Sep, [facility] [id number] [place] [address] 00314- 6853 Sep, Uncontrolled type 2 diabetes mellitus without complication, without long-term current use of insulin E11.65 [facility] [address], [place] [address]- 8652 Sep, [facility] [address] [place] [address]- 1871 Sep, [facility] [id number] [place] [address] 99030- 2253 Sep, [facility] [address] [place] [address] 37236- 9876 Sep, [facility] [id number] [place] [address] 56376- 1788 Sep, Bipolar 2 disorder F31.81 ; Chronic post-traumatic stress disorder (PTSD) F43.12 ; Panic disorder with agoraphobia F40.[address] [facility] [id number] [place] [address] 36021- 5531 Sep, Bipolar 2 disorder F31.81 ; PTSD (post-traumatic stress disorder) F43.10 and Panic disorder with agoraphobia F40.01 [facility] [id number] [place] [address] 49247- 6912 Sep, [facility] [id number] [place] [address]- [address]758 Aug, History of seizures Z87.898 ; Panic disorder with agoraphobia F40.01 and Bipolar [address] [facility] [id number] [address] Aug, [facility] [id number] [address] 17 Aug, [address] [facility] [id number] [place] [address] 2852 Aug, [facility] [id number] [place] [address] [phone] Aug, [facility] [id number] [address] Aug, [facility] [id number] [place] [address]98- 4785 Aug, [facility] [facility] [id number] [place] [address] 49103- 1758 Aug, Hypoglycemia E16.2 and Bilateral impacted cerumen H61.23 [facility] [id number] [place] [address] 61036- 5645 Aug, [facility] [id number] [place] [address] 58902- 1966 Jul, [facility] [id number] [place] [address] 84841- 2114 Jul, [facility] [address] 15903- 2720 Jul, Bipolar 2 disorder F31.81 ; Panic disorder with agoraphobia F40.01 ; PTSD (post-traumatic stress disorder) F43.10 and Epilepsy G40.909 [address] [address] 30367- 8672 Jul, [facility] [id number] [place] [address] 41982- 8746 Jul, Type 2 diabetes mellitus without complications E11.[address] [facility] [id number] [place] [address] 99824- 9684 Jul, [facility] [id number] [place] [address] 46755- 6575 Jun, [facility] [id number] [place] [address] 51705- 5092 Jun, Bipolar 2 disorder F31.81 ; PTSD (post-traumatic stress disorder) F43.10 and Panic disorder with agoraphobia F40.01 [facility] [id number] [place] [address] 50032- 8484 Jun, [facility] [id number] [place] [address] 22762- 8953 Jun, [facility] [address] [place] [address] Jun, [facility] [id number] [place] [address] 52847- 0758 Jun, Type 2 diabetes mellitus without complications E11.9 and COPD (chronic obstructive pulmonary disease) J44.9 [facility] [id number] [place] [address] [id number] May, Dental examination Z01.20 and Dental caries K02.9 [facility] [facility] [id number] [place] [address] 81917- 1175 May, Bipolar 2 disorder F31.81 ; PTSD (post-traumatic stress disorder) F43.10 and Panic disorder with agoraphobia F40.01 [facility] [id number] [place] [address] 16330- 6436 May, Lumbago with sciatica, right side M54.41 ; Other chronic pain G89.29 and Uncontrolled type 2 diabetes mellitus without complication, without long-term current use of insulin E11.65 [facility] [id number] [place] [address] 28882- 1649 May, Chronic bronchitis, unspecified chronic bronchitis type J42 [facility] [id number] [place] [address] 71005- 2654 May, [facility] [id number] [place] [address] 99523- 3317 May, [facility] [id number] [place] [address] 87588- 6604 May, Chest pain, unspecified type R07.9 ; Tobacco use Z72.0 ; Type 2 diabetes mellitus without complications E11.9 ; Essential hypertension I10 ; Hyperlipidemia, unspecified hyperlipidemia type E78.5 ; Obesity (BMI 30- 39.9) E66.9 ; History of hypothyroidism Z86.39 ; Chronic obstructive pulmonary disease, unspecified COPD type J44.9 ; Anxiety F41.9 ; Bilateral claudication of lower limb I73.9 and Bipolar 2 disorder F31.81 [address] [facility] [id number] [place] [address] 94455- 9378 05 May, 2016 Bipolar 2 disorder F31.81 ; Panic disorder with agoraphobia F40.01 and Tobacco abuse Z72.0 [facility] [facility] [id number] [place] [address] 64992- 0350 30 Apr, 2016 [address] [address] 11584- 2692 Apr, [address] [address] 56732- 8402 Apr, [address] [address] 62293- 7486 Apr, Bipolar 2 disorder F31.81 ; Panic disorder with agoraphobia F40.01 and PTSD (post-traumatic stress disorder) F43.10 [address] [address] 71156- 6862 Apr, Chronic bronchitis, unspecified chronic bronchitis type J42 ; Cervical neuritis M54.12 and Thoracic neuritis M54.14 [place] [address] 72941- 7575 Apr, [place] [address] 16001- 4231 15 Apr, 2016 Cervicalgia M54.2 [facility] [id number] [place] [address] 16718- 1957 14 Apr, 2016 Bipolar 2 disorder F31.81 ; Panic disorder with agoraphobia F40.01 and PTSD (post-traumatic stress disorder) F43.10 [facility] [address] [place] [address] 68991 -3892 13 Apr, 2016 [facility] [address] [place] [id number] [place] [address] 49858 -6886 09 Apr, 2016 Cough R05 and Tobacco dependence F17.200 [address] [address] 14409- 1554 Apr, [address] [address] [address] 8488 Apr, [facility] [id number] [place] [address] 79343- 1293 March, Bipolar 2 disorder F31.81 ; Panic disorder with agoraphobia F40.01 and Generalized anxiety disorder F41.1 [facility] [facility] [id number] [place] [address] 65390- 2243 March, Closed displaced fracture of fifth metatarsal bone of right foot with routine healing, subsequent encounter S92.351D [facility] [facility] [id number] [place] [address] 22436- 2377 March, Bronchitis J40 [facility] [id number] [place] [address] 15482- 2348 March, [facility] [id number] [place] [address] 25677- 7693 March, [facility] [id number] [place] [address] 39531- 1602 March, Foot pain, right M79.671 ; Cervicalgia M54.2 and Controlled type 2 diabetes mellitus without complication, 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 [address] [address], [place] [address] 6971 March, Fracture of fifth metatarsal bone of right foot S92.351A [address] [address], [place] [address] 4087 March, [facility] [id number] [place] [address] 69236- 9527 Jan, Fracture of fifth metatarsal bone of right foot S92.351A [place] [address], [place] [address] 2219 Jan, Bipolar 2 disorder F31.81 ; PTSD (post-traumatic stress disorder) F43.10 ; Panic disorder with agoraphobia F40.01 and Epilepsy G40.909 [address] [address] 47738- 7813 Jan, History of ID (myocardial infarction) I25.2 and History of high cholesterol Z86.39 [address] [address] 07175- 5918 Jan, Bipolar 2 disorder F31.81 ; Panic disorder with agoraphobia F40.01 ; Tobacco abuse Z72.0 and PTSD (post-traumatic stress disorder) F43.10 [address] [address] 28588- 3187 Jan, Fracture of fifth metatarsal bone of right foot S92.351A [address] [address] 02319- 0535 Jan, [address] [address] 70811- 5770 Jan, History of high cholesterol Z86.39 [address] [address] 79710- 9572 Jan, History of ID (myocardial infarction) I25.2 [address] [address] 10985- 2409 Jan, [address] [address] 25268- 3374 Dec, Back pain M54.9 ; Diabetes E11.9 ; Right knee pain M25.561 and Chest pain R07.9 [address] [address] 85745- 7597 Dec, [address] [address] 24653- 5077 Dec, [place] [address] 36769- 0317 Dec, Cervicalgia M54.2 [facility] [id number] [place] [address] 73031- 5159 Dec, Bipolar 2 disorder F31.81 ; PTSD (post-traumatic stress disorder) F43.10 ; Panic disorder with agoraphobia F40.[address] [facility] [id number] [place] [address] 21523- 7412 Dec, Bipolar 2 disorder F31.81 ; PTSD (post-traumatic stress disorder) F43.10 and Panic disorder with agoraphobia F40.01 [facility] [id number] [place] [address] 51377- 7473 Dec, Diabetes E11.9 [address] [address] 20572- 0890 Dec, [facility] [address] 69827- 8876 Dec, Other chronic pain G89.29 ; Hepatitis C B19.20 and History of seizures Z87.898 [facility] [id number] [place] [address] 04871- 6726 Dec, [facility] [address] 49243- 7674 Dec, Bipolar 2 disorder F31.81 and Other chronic pain G89.29 [facility] [id number] [place] [address] 61410- 9000 Dec, Cervicalgia M54.[address] [facility] [id number] [place] [address] 68115- 0808 Dec, [facility] [address] 12781- 9861 Dec, [facility] [id number] [place] [address] 79729- 9483 16 Dec, 2015 [facility] [address] 85847- 6714 16 Dec, 2015 [address] [id number] [place] [address] 14659- 4125 Dec, Type 2 diabetes mellitus without complications E11.9 [facility] [facility] [id number] [place] [address] 18552- 2291 10 Dec, 2015 [address] [address] 85528- 0842 Dec, History of seizures Z87.898 and Hepatitis C B19.20 [address] [address] 07375- 6098 Dec, Hepatitis C B19.20 [address] [address] 50473- 7417 Dec, [address] [address] 79890- 7652 Dec, Cervicalgia M54.2 ; COPD (chronic obstructive pulmonary disease) J44.9 and Hepatitis C B19.20 [place] [facility] [id number] [place] [address] 63684- 1152 Dec, Bipolar 2 disorder F31.81 ; History of hypertension Z86.79 ; History of anxiety Z86.59 ; Panic disorder with agoraphobia F40.01 and Epilepsy G40.909 [facility] [facility] [id number] [place] [address] 30689- 3921 Nov, [facility] [id number] [place] [address] 90183- 3103 Nov, [facility] [id number] [place] [address] 43924- 2407 Nov, History of seizures Z87.898 ; OAB (overactive bladder) N32.81 ; Lumbago M54.5 ; Other chronic pain G89.29 ; Cervicalgia M54.2 ; Tobacco abuse Z72.0 ; Tobacco abuse counseling Z71.6 and Impaired fasting glucose R73.01 [address] [address] [place] [address] 11327- 0307 14 Nov, 2015 Bipolar 2 disorder F31.81 ; PTSD (post-traumatic stress disorder) F43.10 ; History of anxiety Z86.59 ; History of COPD Z87.09 ; Panic disorder with agoraphobia F40.01 and Moderate depressed bipolar I disorder F31.32 [facility] [facility] [id number] [place] [address] 33902- 3701 12 Nov, 2015 PTSD (post-traumatic stress disorder) F43.10 [facility] [id number] [place] [address] [id number] 11 Nov, 2015 Dental examination Z01.20 and Dental caries K02.9 [address] [id number] [place] [address] 33045- 4043 08 Nov, 2015 History of hypertension Z86.79 ; History of hypothyroidism Z86.39 ; History of high cholesterol Z86.39 ; History of COPD Z87.09 and Overactive bladder N32.81 [address] [facility] [id number] [place] [address] 84175- 0245 Nov, Bipolar 2 disorder F31.81 and PTSD (post-traumatic stress disorder) F43.10 [facility] [id number] [place] [address] 62435- 4992 Nov, PTSD (post-traumatic stress disorder) F43.10 ; Panic disorder with agoraphobia F40.01 ; Epilepsy G40.909 and Moderate depressed bipolar I disorder F31.32 [address] [id number] [place] [address] 99568- 2332 Nov, [address] 99961- 4284 Nov, [facility] [id number] [place] [address] 78033- 9483 Oct, [address] 14367- 9950 Oct, Generalized anxiety disorder F41.1 ; Major depression, recurrent F33.9 and PTSD (post-traumatic stress disorder) F43.10 [address] [address] 80162- 7974 Oct, Elevated fasting glucose R73.01 [address] [address] 64214- 5067 Oct, Elevated fasting glucose R73.01 [address] [address] 52953- 7475 Oct, History of COPD Z87.[address] 91027- 9045 Oct, General medical exam Z00.00 ; History of hypertension Z86.79 ; History of hypothyroidism Z86.39 ; History of hepatitis Z86.19 ; History of high cholesterol Z86.39 and History of seizures Z87.898 [address] [address] 02283- 7483 Oct, General medical exam Z00.00 ; History of hypertension Z86.79 ; History of hypothyroidism Z86.39 ; Bipolar 2 disorder F31.81 ; PTSD ( post-traumatic stress disorder) F43.10 ; History of hepatitis Z86.19 ; History of high cholesterol Z86.39 ; History of anxiety Z86.59 ; History of seizures Z87.898 ; History of ID (myocardial infarction) I25.2 and History of COPD Z87.09 [place] [id number] [place] [address] 44527- 5075 Oct, Generalized anxiety disorder F41.1 ; Depression F32.9 and PTSD (post-traumatic stress disorder) F43.10 [facility] [id number] [place] [address] 97868- 1322 Jan, [id number] [place] [address] 15402- 9185 Jan, [address] [id number]- 2546 Jun, [facility] [address] [place] [id number] Jun, [facility] [address] [facility] [id number] [address] May, [facility] [address] [facility] [id number], [place] [address]- 2546 May, [facility] [address] [place] [id number] May, [facility] [address] [facility] [id number], [place] [address]- 2546 May, [facility] [address] [place] [id number] May, [facility] [address] [facility] [id number], [place] [address]- 2546 May, IMMUNIZATIONS No Known Immunizations SOCIAL HISTORY Never Assessed REASON FOR VISIT Controlled Med Refill PLAN OF CARE VITAL SIGNS MEDICATIONS Medication Instructions Dosage Frequency Start Date End Date Duration Status [place] 10-325 MG Orally 3 times a day 1 tablet as needed 8h Dec, 28 days Active RESULTS No Results PROCEDURES No Known procedures INSTRUCTIONS MEDICATIONS ADMINISTERED No Known Medications MEDICAL (GENERAL) HISTORY Type Description Date Medical History Hypothyroidism Medical History High cholesterol Medical History Hypertension Medical History Brain seizure Medical History Asthma Medical History COPD Medical History Hep C -2005 Medical History ID x 2 last in 2009 Medical History PTSD (post-traumatic stress disorder) Medical History Colon Cancer 2016 Medical History diabites II Surgical History tonsillectomy 1985 Surgical History partial hysterectomy 2004 Surgical History appendectomy 2004 Hospitalization History Surgery(s) only Hospitalization History pneumonia x3 days Hospitalization History Heart cath with stint 05/15/2016 Hospitalization History Diverticulitis, N/[facility] 01/28/17
--- OUTSIDE RECORDS SUMMARY | 2019-01-26 08:26 | XMS REPORT ---
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 Name Role Phone FRANK LUNA Unavailable PROBLEMS Type Condition ICD9-CM Code QIS17-SZ Code Onset Dates Condition Status SNOMED Code Problem OAB (overactive bladder) N32.81 Active 347348265 Problem Epilepsy G40.909 Active 04384021 Problem Cervicalgia M54.2 Active 06859338 Problem Other chronic pain G89.29 Active 52461897 Problem Tobacco abuse Z72.0 Active 73807270 Problem Lumbago M54.5 Active 559818409 Problem Hepatitis C B19.20 Active 01890657 Problem COPD (chronic obstructive pulmonary disease) J44.9 Active 82554942 Problem Diabetes E11.9 Active 56459106 Problem Bipolar I disorder with duy F31.10 Active 23876858 Problem Type 2 diabetes mellitus without complications E11.9 Active 011844855 Problem Stress incontinence of urine N39.3 Active 16739549 Problem Bilateral claudication of lower limb I73.9 Active 115641454 Problem Seasonal allergic rhinitis due to other allergic trigger J30.89 Active 303079773 Problem Hyperlipidemia, unspecified hyperlipidemia type E78.5 Active 55514514 Problem Hypertension, unspecified type I10 Active 43675754 Problem Chronic tension-type headache, not intractable G44.229 Active 352133830 Problem Controlled type 2 diabetes mellitus without complication, without long -term current use of insulin E11.9 Active 343763820 Problem Type 2 diabetes mellitus with hyperglycemia E11.65 Active 809203917 Problem Chronic post-traumatic stress disorder (PTSD) F43.12 Active 804798591 Problem History of hypothyroidism Z86.39 Active 117612909 Problem Hypoglycemia E16.2 Active 881398018 Problem El's esophageal ulceration K22.10 Active 388157453 Problem Bipolar affective disorder, currently depressed, mild F31.31 Active 668307114 Problem Irritable bowel syndrome with diarrhea K58.0 Active 512680057 Problem Stress incontinence N39.3 Active 87389649 Problem History of hypertension Z86.79 Active 504972221 Problem Uncontrolled type 2 diabetes mellitus without complication, without long-term current use of insulin E11.65 Active 973030173 Problem Panic disorder with agoraphobia F40.01 Active 24594929 Problem Type 2 diabetes mellitus with hyperglycemia E11.65 Active 043267659 Problem History of seizures Z87.898 Active 680473145 Problem correction current use of insulin Z79.4 Active 812792657 Problem History of CO (myocardial infarction) I25.2 Active 412712063 Problem Mood disorder F39 Active 47072367 Problem Bipolar 2 disorder F31.81 Active 96530047 Problem Gastritis and duodenitis K29.90 Active 488813945 Problem History of high cholesterol Z86.39 Active 577502025 Problem Bipolar I disorder with mood-congruent psychotic features F31.9 Active 172596120 Problem Hypertension, benign I10 Active 09059567 Problem Primary insomnia F51.01 Active 9899110 ALLERGIES No Information ENCOUNTERS Encounter Location Date Diagnosis [facility] [id number] [place] [address] 46838- 8655 Jun, [facility] [address] 13034- 2173 May, [facility] [id number] [place] [address] [id number] May, [facility] [id number] [place] [address] 84273- 9676 May, [facility] [id number] [place] [address] 54594- 5573 May, [facility] [id number] [place] [address] 98233- 6671 May, [facility] [id number] [place] [address] [phone]- [phone] May, [facility] [id number] [place] [address] [id number]- 7393 May, Lumbago M54.5 [facility] [address], [place] [address] 04[address] May, [facility] [id number] [place] [address] 06666- [address] Apr, [address] of the chest R93.8 [facility] [id number] [place] [address] 66134- 5803 Apr, Bipolar 2 disorder F31.81 ; Chronic post-traumatic stress disorder (PTSD) F43.12 and Panic disorder with agoraphobia F40.01 [facility] [id number] [place] [address] 82752- [address] Apr, [address] of the chest R93.8 [facility] [id number] [place] [address] 60697- [address] Apr, [address] of the chest R93.8 [facility] [id number] [place] [address] 06259- 8043 Apr, [facility] [id number] [place] [address] 25659- 9650 Apr, Type 2 diabetes mellitus with hyperglycemia E11.65 [facility] [id number] [place] [address] 21048- 3175 Apr, Controlled type 2 diabetes mellitus without complication, without long-term current use of insulin E11.9 ; Watery eyes H04.203 ; Low back pain M54.5 ; Other chronic pain G89.29 ; Chronic tension-type headache, not intractable G44.229 ; Uncontrolled type 2 diabetes mellitus without complication , without long-term current use of insulin E11.65 and Bronchitis J40 [facility] [id number] [place] [address] 88123- 2690 Apr, [facility] [id number] [place] [address] 44051- 8916 Apr, Lumbago M54.5 [facility] [id number] [place] [address] 29823- 7995 March, [facility] [id number] [place] [address] 56644 -8286 March, Cough R05 ; Pneumonia due to infectious organism, unspecified laterality, unspecified part of lung J18.9 and Non-intractable vomiting with nausea, unspecified vomiting type R11.2 [facility] [id number] [place] [address] 83195- 7636 March, Bronchitis J40 [facility] [address] 26616- 1666 March, [facility] [address] 47311- 7279 March, El's esophageal ulceration K22.10 and Type 2 diabetes mellitus with hyperglycemia E11.65 [facility] [id number] [place] [address] 84904- 7616 March, Panic disorder with agoraphobia F40.01 ; Chronic post- traumatic stress disorder (PTSD) F43.12 and Bipolar 2 disorder F31.81 [facility] [id number] [place] [address] 87063- 3665 March, Type 2 diabetes mellitus with hyperglycemia E11.65 [facility] [id number] [place] [address] 59411- 9248 March, [facility] [id number] [place] [address] 43278- 6692 March, Lumbago M54.5 [facility] [id number] [place] [address] 32206- 4327 March, [facility] [address] 63403- 3504 March, Irritable bowel syndrome with diarrhea K58.0 ; Primary insomnia F51.01 ; Type 2 diabetes mellitus with hyperglycemia E11.65 and correction current use of insulin Z79.4 [facility] [id number] [place] [address] 25829- 8618 March, [facility] [address] [place] [address] 97762- 2812 Jan, [facility] [id number] [place] [address] 59953- 7610 Jan, [facility] [id number] [place] [address] 33402- 5889 Jan, [facility] [id number] [place] [address] 81720- 0582 Jan, [facility] [id number] [place] [address] 12301- 2472 Jan, Dizziness R42 [facility] [id number] [place] [address] 89523- 4845 Jan, Bipolar affective disorder, currently depressed, mild F31.31 ; Panic disorder with agoraphobia F40.01 and Chronic post-traumatic stress disorder (PTSD) F43.12 [facility] [id number] [place] [address] 79492- 3514 Jan, Dizziness R42 [facility] [id number] [place] [address] 34644- 1280 Jan, Chest pain, unspecified type R07.9 ; Exertional dyspnea R06.09 ; Hypertension, unspecified type I10 and Hyperlipidemia, unspecified hyperlipidemia type E78.5 [facility] [id number] [place] [address] 69828- 1516 Jan, [facility] [address] [place] [address] 72934- 5772 Jan, Lumbago M54.5 [facility] [id number] [place] [address] 20929- 3830 Jan, El's esophageal ulceration K22.10 ; Blister (nonthermal ) of oral cavity, initial encounter S00.522A ; Local infection of the skin and subcutaneous tissue, unspecified L08.9 ; Type 2 diabetes mellitus with hyperglycemia E11.65 ; correction current use of insulin Z79.4 and Stress incontinence N39.3 [facility] [address] [place] [address] 69144- 1100 27 Dec, 2017 [facility] [id number] [place] [address] 39982- 4279 27 Dec, 2017 [facility] [id number] [place] [address] 87728- 3677 19 Dec, 2017 [facility] [id number] [place] [address] [id number] 16 Dec, 2017 Dental examination Z01.20 [facility] [id number] [place] [address] 92007- 0046 15 Dec, 2017 Acute pain of right knee M25.561 [facility] [id number] [place] [address] 91862- 5523 14 Dec, 2017 [facility] [id number] [place] [address] 37500- 0210 14 Dec, 2017 [facility] [id number] [place] [address] 79812- 0745 14 Dec, 2017 Lumbago M54.5 ; Acute pain of right knee M25.561 and Seasonal allergic rhinitis due to other allergic trigger J30.89 [facility] [address], [place] [address]- 0701 Dec, Type 2 diabetes mellitus with hyperglycemia E11.65 [facility] [address] [place] [address] 41394- 7808 Dec, [facility] [id number] [place] [address] 83820- 8606 Dec, [facility] [id number] [place] [address] 15410- 6335 23 Dec, 2017 [facility] [address], [place] [address]- 9999 Dec, [facility] [address] [place] [address]- 5362 15 Dec, 2017 Chronic post-traumatic stress disorder (PTSD) F43.12 and Panic disorder with agoraphobia F40.01 [facility] [id number] [place] [address] 53562- 8454 13 Dec, 2017 Low back pain M54.5 [facility] [id number] [place] [address] 55417- 3524 12 Dec, 2017 Type 2 diabetes mellitus with hyperglycemia E11.65 ; correction current use of insulin Z79.4 ; Low back pain M54.5 ; Encounter for therapeutic drug level monitoring Z51.81 and Other chronic pain G89.29 [facility] [id number] [place] [address] 00846- 3802 09 Dec, 2017 Coughing R05 [facility] [id number] [place] [address] 06918- 4820 09 Dec, 2017 [facility] [address] [id number] Dec, 2017 Dental examination Z01.20 [facility] [id number] [place] [address] 98472- 5459 Nov, Type 2 diabetes mellitus without complications E11.9 and Encounter for therapeutic drug level monitoring Z51.81 [facility] [id number] [place] [address] 64868- 0747 Nov, [facility] [id number] [place] [address] 70203- 3494 Oct, Type 2 diabetes mellitus without complications E11.9 [facility] [id number] [place] [address] 82805- 3302 Oct, Type 2 diabetes mellitus with hyperglycemia E11.65 [facility] [id number] [place] [address] 05664- 4718 Aug, Type 2 diabetes mellitus without complications E11.9 [facility] [address] 49608- 1905 Aug, Type 2 diabetes mellitus without complications E11.9 ; Hypoglycemia E16.2 ; Lumbago M54.5 ; Stress incontinence of urine N39.3 and History of CO (myocardial infarction) I25.2 [facility] [address], [place] [address]- 6211 Jun, [facility] [id number] [place] [address] 66508- 6880 May, [facility] [id number] [place] [address] 49435- 9852 Apr, Panic disorder with agoraphobia F40.01 [facility] [id number] [place] [address] 95568- 0754 Apr, Panic disorder with agoraphobia F40.01 [facility] [id number] [place] [address] 37419- 2484 Apr, [facility] [id number] [place] [address] 55355- 2539 March, Other chronic pain G89.29 [facility] [id number] [place] [address] 29846- 8102 March, [facility] [id number] [place] [address] 74835- 2990 March, [facility] [id number] [place] [address] 95669- 0538 March, [facility] [id number] [place] [address] 99177- 4140 March, [facility] [id number] [place] [address] 30512- 7817 March, Type 2 diabetes mellitus without complications E11.9 [facility] [id number] [place] [address] 60217- 6662 March, Diarrhea, unspecified type R19.7 [facility] [id number] [address]- 6323 March, Bipolar 2 disorder F31.81 ; Chronic post-traumatic stress disorder (PTSD) F43.12 and Type 2 diabetes mellitus with hyperglycemia E11.65 [facility] [address], [place] [address]- 5940 March, [facility] [id number] [place] [address] 55049- 7778 March, [facility] [id number] [place] [address] 64663- 3750 March, Hypertension, benign I10 ; Type 2 diabetes mellitus with hyperglycemia E11.65 ; Hepatitis C B19.20 ; Gastritis and duodenitis K29.90 and Dysuria R30.0 [facility] [address] [place] [address] 14947- 6421 March, Hypertension, benign I10 ; Type 2 diabetes mellitus with hyperglycemia E11.65 ; Hepatitis C B19.20 ; Gastritis and duodenitis K29.90 and Dysuria R30.0 [facility] [address] [place] [address] 55922- 1763 March, Panic disorder with agoraphobia F40.01 ; Chronic post- traumatic stress disorder (PTSD) F43.12 ; Epilepsy G40.909 and Bipolar I disorder with mood-congruent psychotic features F31.9 [facility] [address], [place] [address]- 8704 March, [facility] [id number] [place] [address] 57909- 1991 March, Type 2 diabetes mellitus with hyperglycemia E11.65 [facility] [id number] [place] [address] 40392- 4509 Jan, Bipolar I disorder with duy F31.10 [facility] [address] [place] [address] 87049- 5177 Jan, Bipolar 2 disorder F31.81 ; Chronic post-traumatic stress disorder (PTSD) F43.12 and Type 2 diabetes mellitus with hyperglycemia E11.65 [facility] [address], [place] [address]- 4325 17 Jan, 2017 [facility] [id number] [place] [address] 08742- 1761 17 Jan, 2017 [facility] [id number] [place] [address] 64255- 2966 14 Jan, 2017 Panic disorder with agoraphobia F40.01 [facility] [id number] [place] [address] 04180 2549 13 Jan, 2017 Panic disorder with agoraphobia F40.01 ; Bipolar I disorder with mood-congruent psychotic features F31.9 ; Chronic post-traumatic stress disorder (PTSD) F43.12 and Epilepsy G40.909 [facility] [id number] [place] [address] 75510- 6185 12 Jan, 2017 [facility] [id number] [place] [address] 17779- 0994 11 Jan, 2017 [facility] [id number] [place] [address] 93929- 4537 10 Jan, 2017 Type 2 diabetes mellitus without complications E11.9 and Hypoglycemia E16.2 [facility] [id number] [place] [address] 96040- 1075 07 Jan, 2017 Type 2 diabetes mellitus without complications E11.9 ; Primary insomnia F51.01 and Hypertension, benign I10 [facility] [address] [place] [address] 17293- 8955 06 Jan, 2017 [facility] [id number] [place] [address] [id number] Jan, [facility] [id number] [place] [address] 07063- 2479 31 Dec, 2016 Type 2 diabetes mellitus with hyperglycemia E11.65 [facility] [address] [place] [address] 07009- 1919 Dec, [facility] [address], [place] [address]- 6124 Dec, Bipolar 2 disorder F31.81 ; Panic disorder with agoraphobia F40.01 ; Chronic post-traumatic stress disorder (PTSD) F43.12 and Epilepsy G40.909 [facility] [address], [place] [address]- 0100 Dec, [facility] [id number] [place] [address] 15224- 7718 Dec, [facility] [address] [place] [address] 09337- 9981 Dec, Bipolar 2 disorder F31.81 ; Panic disorder with agoraphobia F40.01 ; Chronic post-traumatic stress disorder (PTSD) F43.12 and Epilepsy G40.909 [facility] [id number] [place] [address] 05110- 6774 Dec, [facility] [id number] [place] [address] 95780- 1603 Dec, [facility] [address] [place] [address] 78577- 8289 Dec, [facility] [id number] [place] [address] 27371- 7243 Dec, Type 2 diabetes mellitus with hyperglycemia E11.65 ; correction current use of insulin Z79.4 and Lumbago M54.5 [facility] [address], [place] [address]- 2068 Dec, [facility] [address], [place] [address]- 6590 Dec, [facility] [id number] [place] [address] 53508- 3451 Dec, [facility] [address], [place] [address] -9421 Dec, Pain of left leg M79.605 and Pain in right leg M79.604 [facility] [id number] [place] [address] 91444- 2645 14 Dec, 2016 [facility] [id number] [place] [address] 43560- 7069 08 Dec, 2016 Type 2 diabetes mellitus with hyperglycemia E11.65 [facility] [address] 99684- 3696 Dec, [facility] [address] 67119- 6776 Dec, Type 2 diabetes mellitus with hyperglycemia E11.65 ; 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 ; Vagina, candidiasis B37.3 and Other chronic pain G89.29 [facility] [address] 56374- 6005 Nov, Panic disorder with agoraphobia F40.01 [facility] [id number] [place] [address] 94251- 3720 Nov, [facility] [id number] [place] [address] 24946- 8399 Nov, [facility] [id number] [place] [address] 41682- 2174 Nov, Hypoglycemia E16.2 [facility] [id number] [place] [address] 80722- 8771 Nov, [facility] [id number] [place] [address] 96985- 9589 Nov, [facility] [id number] [place] [address] 69219- 1473 Nov, [facility] [id number] [place] [address] 65539- 5528 Nov, Type 2 diabetes mellitus with hyperglycemia E11.65 and correction current use of insulin Z79.4 [facility] [address] 36236- 2808 Nov, Panic disorder with agoraphobia F40.01 ; Bipolar 2 disorder F31.81 ; Chronic post-traumatic stress disorder (PTSD) F43.12 and Epilepsy G40.909 [facility] [address] [place] [address] 17826- 5826 Nov, Panic disorder with agoraphobia F40.01 [facility] [id number] [place] [address] 87970- 6712 Oct, [facility] [id number] [place] [address] 21896- 6426 Oct, [facility] [id number] [place] [address] 29599- 6487 Oct, Bipolar 2 disorder F31.81 ; Panic disorder with agoraphobia F40.01 and Mood disorder F39 [facility] [id number] [place] [address] 98542- 8892 Oct, Diabetes E11.9 ; Type 2 diabetes mellitus with hyperglycemia E11.65 and correction current use of insulin Z79.4 [facility] [id number] [place] [address] 02099- 3292 Oct, [facility] [id number] [place] [address] 36268- 0674 Sep, [facility] [id number] [place] [address] 49115- 6925 Sep, Bipolar 2 disorder F31.81 and Mood disorder F39 [facility] [id number] [place] [address] 23505- 5284 Sep, [facility] [id number] [place] [address] 10091- 7713 Sep, Uncontrolled type 2 diabetes mellitus without complication, without long-term current use of insulin E11.65 [facility] [id number] [place] [address] 76117- 8569 Sep, [facility] [address], [place] [address]- 8862 18 Sep, 2016 [facility] [id number] [place] [address] 04274- 7058 Sep, [facility] [id number] [place] [address] 81327- 4564 Sep, [facility] [id number] [place] [address] [phone]- 5757 Sep, Bipolar 2 disorder F31.81 ; Chronic post-traumatic stress disorder (PTSD) F43.12 ; Panic disorder with agoraphobia F40.01 and Epilepsy G40.909 [facility] [id number] [place] [address] [id number]- 4858 Sep, Bipolar 2 disorder F31.81 ; PTSD (post-traumatic stress disorder) F43.10 and Panic disorder with agoraphobia F40.01 [facility] [id number] [place] [address] [id number]- 1724 Sep, [facility] [id number] [place] [address] 43314- 7847 28 Aug, 2016 History of seizures Z87.898 ; Panic disorder with agoraphobia F40.01 and Bipolar 2 disorder F31.81 [facility] [id number] [place] [address] 85071- 5581 19 Aug, 2016 [facility] [id number] [place] [address] 60747- [phone] 17 Aug, 2016 [facility] [id number] [place] [address] [phone]- 6420 Aug, [facility] [facility] [id number] [place] [address] 30218- 2015 Aug, [facility] [address] [address] Aug, [facility] [id number] [place] [address] 95986- 1219 Aug, [facility] [id number] [place] [address] 52598- 8614 Aug, Hypoglycemia E16.2 and Bilateral impacted cerumen H61.23 [facility] [id number] [place] [address] 83240- 6605 Aug, [facility] [address] 57263- 0160 Jul, [facility] [address] 92472- 3380 Jul, [place] [address] 63358- 3991 Jul, Bipolar 2 disorder F31.81 ; Panic disorder with agoraphobia F40.01 ; PTSD (post-traumatic stress disorder) F43.10 and Epilepsy G40.909 [place] [id number] [place] [address] 58743- 0998 Jul, [place] [id number] [place] [address] 17622- 5667 Jul, Type 2 diabetes mellitus without complications E11.9 and Coughing R05 [place] [id number] [place] [address] 36475- 6590 Jul, [place] [id number] [place] [address] 58070- 5391 Jun, [facility] [id number] [place] [address] 19492- 9771 Jun, Bipolar 2 disorder F31.81 ; PTSD (post-traumatic stress disorder) F43.10 and Panic disorder with agoraphobia F40.01 [facility] [id number] [place] [address] 05982- 8585 Jun, [facility] [id number] [place] [address] 24964- 1355 Jun, [facility] [id number] [place] [address] 02255- 7830 Jun, [place] [address] 97597- 5222 Jun, Type 2 diabetes mellitus without complications E11.9 and COPD (chronic obstructive pulmonary disease) J44.9 [facility] [id number] [place] [address] [id number] May, Dental examination Z01.20 and Dental caries K02.9 [place] [address] 07413- 9435 May, Bipolar 2 disorder F31.81 ; PTSD (post-traumatic stress disorder) F43.10 and Panic disorder with agoraphobia F40.01 [place] [id number] [place] [address] 32693- 2171 May, Lumbago with sciatica, right side M54.41 ; Other chronic pain G89.29 and Uncontrolled type 2 diabetes mellitus without complication, without long-term current use of insulin E11.65 [place] [id number] [place] [address] 59144- 6024 May, Chronic bronchitis, unspecified chronic bronchitis type J42 [place] [id number] [place] [address] 67825- 5823 May, [place] [id number] [place] [address] 42589- 8885 May, [place] [id number] [place] [address] 29712- 1855 May, Chest pain, unspecified type R07.9 ; Tobacco use Z72.0 ; Type 2 diabetes mellitus without complications E11.9 ; Essential hypertension I10 ; Hyperlipidemia, unspecified hyperlipidemia type E78.5 ; Obesity (BMI 30- 39.9) E66.9 ; History of hypothyroidism Z86.39 ; Chronic obstructive pulmonary disease, unspecified COPD type J44.9 ; Anxiety F41.9 ; Bilateral claudication of lower limb I73.9 and Bipolar 2 disorder F31.81 [place] [id number] [place] [address] 29374- 5961 05 May, 2016 Bipolar 2 disorder F31.81 ; Panic disorder with agoraphobia F40.01 and Tobacco abuse Z72.0 [place] [id number] [place] [address] 49492- 1672 30 Apr, 2016 [place] [address] 33971- 7046 Apr, [place] [id number] [place] [address] 67302- 8725 Apr, [place] [address] 36950- 3248 Apr, Bipolar 2 disorder F31.81 ; Panic disorder with agoraphobia F40.01 and PTSD (post-traumatic stress disorder) F43.10 [place] [id number] [place] [address] 68710- 8108 Apr, Chronic bronchitis, unspecified chronic bronchitis type J42 ; Cervical neuritis M54.12 and Thoracic neuritis M54.14 [place] [id number] [place] [address] 01085- 6702 15 Apr, 2016 [place] [id number] [place] [address] 10234- 8063 15 Apr, 2016 Cervicalgia M54.2 [place] [id number] [place] [address] 06891- 5922 14 Apr, 2016 Bipolar 2 disorder F31.81 ; Panic disorder with agoraphobia F40.01 and PTSD (post-traumatic stress disorder) F43.10 [facility] [address] [place] [id number] [place] [address] 66555 -0819 13 Apr, 2016 [facility] [address] [place] [id number] [place] [address] 30014 -0273 09 Apr, 2016 Cough R05 and Tobacco dependence F17.[address] [place] [address]- 3351 Apr, [place] [id number] [place] [address] 31293- 0765 Apr, [place] [id number] [place] [address] 21672- 1910 March, Bipolar 2 disorder F31.81 ; Panic disorder with agoraphobia F40.01 and Generalized anxiety disorder F41.1 [place] [id number] [place] [address] 15561- 8334 March, Closed displaced fracture of fifth metatarsal bone of right foot with routine healing, subsequent encounter S92.351D [place] [id number] [place] [address] 85500- 6977 March, Bronchitis J40 [place] [id number] [place] [address] 19058- 6306 March, [place] [id number] [place] [address] 90444- 6298 March, [place] [id number] [place] [address] 87693- 0685 March, Foot pain, right M79.671 ; Cervicalgia M54.2 and Controlled type 2 diabetes mellitus without complication, unspecified fpc insulin use status E11.9 [place] [id number] [place] [address] 20507- 6305 March, Fracture of fifth metatarsal bone of right foot S92.351A [place] [id number] [place] [address] 61880- 4615 March, [place] [id number] [place] [address] 71892- 4401 Jan, Fracture of fifth metatarsal bone of right foot S92.351A [place] [id number] [place] [address] 28740- 8952 Jan, Bipolar 2 disorder F31.81 ; PTSD (post-traumatic stress disorder) F43.10 ; Panic disorder with agoraphobia F40.01 and Epilepsy G40.909 [place] [address] 53384- 1269 Jan, History of CO (myocardial infarction) I25.2 and History of high cholesterol Z86.39 [facility] [address] 26478- 7556 Jan, Bipolar 2 disorder F31.81 ; Panic disorder with agoraphobia F40.01 ; Tobacco abuse Z72.0 and PTSD (post-traumatic stress disorder) F43.10 [place] [address] 68066- 3415 Jan, Fracture of fifth metatarsal bone of right foot S92.351A [place] [address] 01675- 8480 Jan, [place] [address] 44281- 4973 Jan, History of high cholesterol Z86.39 [place] [address] 83431- 3865 Jan, History of CO (myocardial infarction) I25.2 [place] [address] 20549- 2851 Jan, [place] [address] 40260- 8340 Dec, Back pain M54.9 ; Diabetes E11.9 ; Right knee pain M25.561 and Chest pain R07.9 [place] [address] 41585- 6760 Dec, [facility] [address] 90791- 7645 Dec, [facility] [address] 61178- 1509 Dec, Cervicalgia M54.2 [facility] [id number] [place] [address] 20561- 7647 Dec, Bipolar 2 disorder F31.81 ; PTSD (post-traumatic stress disorder) F43.10 ; Panic disorder with agoraphobia F40.01 and Epilepsy G40.909 [facility] [id number] [place] [address] 08507- 8122 Dec, Bipolar 2 disorder F31.81 ; PTSD (post-traumatic stress disorder) F43.10 and Panic disorder with agoraphobia F40.01 [facility] [address] 81227- 2468 Dec, Diabetes E11.9 [place] [address] 34158- 3016 Dec, [place] [address] 92549- 5712 Dec, Other chronic pain G89.29 ; Hepatitis C B19.20 and History of seizures Z87.898 [facility] [id number] [place] [address] 19485- 4650 Dec, [facility] [id number] [place] [address] 79242- 8151 Dec, Bipolar 2 disorder F31.81 and Other chronic pain G89.29 [facility] [address] 75766- 9398 Dec, Cervicalgia M54.2 and Diabetes E11.9 [facility] [id number] [place] [address] 07568- 6550 Dec, [facility] [address] 55161- 5560 Dec, [facility] [address] 41822- 5636 Dec, [facility] [address] 10882- 5150 16 Dec, 2015 [place] [id number] [place] [address] 23404- 4678 Dec, Type 2 diabetes mellitus without complications E11.9 [place] [id number] [place] [address] 31461- 9094 10 Dec, 2015 [place] [id number] [place] [address] 30768- 3792 Dec, History of seizures Z87.898 and Hepatitis C B19.20 [place] [id number] [place] [address] 74227- 3621 Dec, Hepatitis C B19.20 [place] [id number] [place] [address] 62554- 1566 Dec, [place] [id number] [place] [address] 77288- 2295 Dec, Cervicalgia M54.2 ; COPD (chronic obstructive pulmonary disease) J44.9 and Hepatitis C B19.20 [place] [id number] [place] [address] 07570- 6434 Dec, Bipolar 2 disorder F31.81 ; History of hypertension Z86.79 ; History of anxiety Z86.59 ; Panic disorder with agoraphobia F40.01 and Epilepsy G40.909 [place] [id number] [place] [address] 21439- 0462 Nov, [place] [id number] [place] [address] 05078- 9753 Nov, [place] [id number] [place] [address] 80646- 7890 Nov, History of seizures Z87.898 ; OAB (overactive bladder) N32.81 ; Lumbago M54.5 ; Other chronic pain G89.29 ; Cervicalgia M54.2 ; Tobacco abuse Z72.0 ; Tobacco abuse counseling Z71.6 and Impaired fasting glucose R73.01 [facility] [address], [place] [address]- 1025 14 Nov, 2015 Bipolar 2 disorder F31.81 ; PTSD (post-traumatic stress disorder) F43.10 ; History of anxiety Z86.59 ; History of COPD Z87.09 ; Panic disorder with agoraphobia F40.01 and Moderate depressed bipolar I disorder F31.[address] 77296- 2598 12 Nov, 2015 PTSD (post-traumatic stress disorder) F43.10 [facility] [address] [place] [address] [id number] 11 Nov, 2015 Dental examination Z01.20 and Dental caries K02.9 [place] [id number] [place] [address] 89633- 5044 08 Nov, 2015 History of hypertension Z86.79 ; History of hypothyroidism Z86.39 ; History of high cholesterol Z86.39 ; History of COPD Z87.09 and Overactive bladder N32.81 [place] [id number] [place] [address] 35253- 1519 Nov, Bipolar 2 disorder F31.81 and PTSD (post-traumatic stress disorder) F43.10 [facility] [address] [place] [address] 48365- 2882 Nov, PTSD (post-traumatic stress disorder) F43.10 ; Panic disorder with agoraphobia F40.01 ; Epilepsy G40.909 and Moderate depressed bipolar I disorder F31.32 [place] [id number] [place] [address] 74473- 5444 Nov, [place] [id number] [place] [address] 42004- 6492 Nov, [facility] [id number] [place] [address] 00593- 6179 Oct, [place] [id number] [place] [address] 20649- 1591 Oct, Generalized anxiety disorder F41.1 ; Major depression, recurrent F33.9 and PTSD (post-traumatic stress disorder) F43.10 [place] [id number] [place] [address] 44552- 1212 Oct, Elevated fasting glucose R73.01 [place] [id number] [place] [address] 39998- 2299 Oct, Elevated fasting glucose R73.01 [place] [address] 66666- 7024 Oct, History of COPD Z87.[address] 15802- 3523 Oct, General medical exam Z00.00 ; History of hypertension Z86.79 ; History of hypothyroidism Z86.39 ; History of hepatitis Z86.19 ; History of high cholesterol Z86.39 and History of seizures Z87.898 [place] [id number] [place] [address] 33692- 9086 Oct, General medical exam Z00.00 ; History of hypertension Z86.79 ; History of hypothyroidism Z86.39 ; Bipolar 2 disorder F31.81 ; PTSD ( post-traumatic stress disorder) F43.10 ; History of hepatitis Z86.19 ; History of high cholesterol Z86.39 ; History of anxiety Z86.59 ; History of seizures Z87.898 ; History of CO (myocardial infarction) I25.2 and History of COPD Z87.09 [place] [id number] [place] [address] 32271- 5232 Oct, Generalized anxiety disorder F41.1 ; Depression F32.9 and PTSD (post-traumatic stress disorder) F43.10 [place] [id number] [place] [address] 53158- 2848 Jan, [place] [id number] [place] [address] 64333- 4579 Jan, [address] [place] [address]- 2546 Jun, [facility] [address] [place] [id number] Jun, [facility] [address] [facility] [id number] [address]- 2546 May, [facility] [address] [facility] [id number] [address]- 2546 May, [facility] [address] [id number] May, [facility] [address] [facility] [id number] [address]- 2546 May, [facility] [address] [id number] May, [facility] [address] [facility] [id number] [address]- 8346 May, IMMUNIZATIONS No Known Immunizations SOCIAL HISTORY [...] Medical History Hep C -2005 Medical History CO x 2 last in [...]
--- OUTSIDE RECORDS SUMMARY | 2019-01-26 08:28 | XMS REPORT ---
Author Author GERARDO KISER [facility] Address [address] [place] [address] Care Team Providers Care Director Cardiovascular Name Role Phone MARGI GERARDO Unavailable PROBLEMS Type Condition ICD9-CM Code TSA65-AI Code Onset Dates Condition Status SNOMED Code Problem Panic disorder with agoraphobia F40.01 Active 89511913 Problem Bipolar 2 disorder F31.81 Active 65144741 Problem OAB (overactive bladder) N32.81 Active 821223200 Problem Epilepsy G40.909 Active 93914753 Problem Other chronic pain G89.29 Active 93787969 Problem Cervicalgia M54.2 Active 48823195 Problem Tobacco abuse Z72.0 Active 71545957 Problem Lumbago M54.5 Active 224559859 Problem Hepatitis C B19.20 Active 36390292 Problem Gastritis and duodenitis K29.90 Active 566511279 Problem COPD (chronic obstructive pulmonary disease) J44.9 Active 27887537 Problem Bipolar I disorder with mood-congruent psychotic features F31.9 Active 710473639 Problem Diabetes E11.9 Active 46286493 Problem Bipolar I disorder with duy F31.10 Active 65982073 Problem Seasonal allergic rhinitis due to other allergic trigger J30.89 Active 819380039 Problem Stress incontinence of urine N39.3 Active 08274783 Problem Irritable bowel syndrome with diarrhea K58.0 Active 817375192 Problem Stress incontinence N39.3 Active 86702055 Problem Hypoglycemia E16.2 Active 945411829 Problem Bilateral claudication of lower limb I73.9 Active 965682756 Problem Type 2 diabetes mellitus without complications E11.9 Active 505289420 Problem Hyperlipidemia, unspecified hyperlipidemia type E78.5 Active 57107534 Problem Hypertension, unspecified type I10 Active 72103904 Problem El's esophageal ulceration K22.10 Active 828392579 Problem Bipolar affective disorder, currently depressed, mild F31.31 Active 117530022 Problem History of hypertension Z86.79 Active 684939080 Problem 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 Active 506856501 Problem History of hypothyroidism Z86.39 Active 246134049 Problem Mood disorder F39 Active 76710150 Problem History of high cholesterol Z86.39 Active 086893213 Problem Chronic post-traumatic stress disorder (PTSD) F43.12 Active 169441347 Problem History of TN (myocardial infarction) I25.2 Active 032767491 Problem Type 2 diabetes mellitus with hyperglycemia E11.65 Active 227187596 Problem Hypertension, benign I10 Active 30689948 Problem History of seizures Z87.898 Active 118630243 Problem Primary insomnia F51.01 Active 9649975 Problem Uncontrolled type 2 diabetes mellitus without complication, without long-term current use of insulin E11.65 Active 711467076 Problem Type 2 diabetes mellitus with hyperglycemia E11.65 Active 937661917 ALLERGIES No Information ENCOUNTERS Encounter Location Date Diagnosis [facility] [id number] [place] [address] 01303- 7400 Apr, [facility] [address] 59548- 0013 March, [facility] [id number] [place] [address] 79958- 6189 March, [facility] [id number] [place] [address] 01841- 7620 March, [facility] [id number] [place] [address] 15443- 5932 March, [facility] [id number] [place] [address] 95078- 3631 March, Lumbago M54.5 [facility] [id number] [place] [address] 03216- 3168 March, [facility] [id number] [place] [address] 81829- 4476 March, Irritable bowel syndrome with diarrhea K58.0 ; Primary insomnia F51.01 ; Type 2 diabetes mellitus with hyperglycemia E11.65 and nursing home current use of insulin Z79.4 [facility] [id number] [address] 6735 March, [facility] [id number] [place] [address] 40988- 6833 Jan, [facility] [id number] [place] [address] 07137- 2218 Jan, [facility] [id number] [place] [address] 62974- 1914 Jan, [facility] [id number] [place] [address] 89680- 5325 Jan, [facility] [id number] [place] [address] 81311- 4072 Jan, Dizziness R42 [facility] [id number] [place] [address] 47340- 1071 Jan, Bipolar affective disorder, currently depressed, mild F31.31 ; Panic disorder with agoraphobia F40.01 and Chronic post-traumatic stress disorder (PTSD) F43.12 [facility] [id number] [place] [address] 59219- 4007 Jan, Dizziness R42 [facility] [address] [place] [address] 51617- 1322 Jan, Chest pain, unspecified type R07.9 ; Exertional dyspnea R06.09 ; Hypertension, unspecified type I10 and Hyperlipidemia, unspecified hyperlipidemia type E78.5 [facility] [id number] [place] [address] 86014- 3155 Jan, [facility] [address] [place] [address] 37417- 4158 Jan, Lumbago M54.5 [facility] [address] [place] [address] 42470- 3964 Jan, El's esophageal ulceration K22.10 ; Blister (nonthermal ) of oral cavity, initial encounter S00.522A ; Local infection of the skin and subcutaneous tissue, unspecified L08.9 ; Type 2 diabetes mellitus with hyperglycemia E11.65 ; nursing home current use of insulin Z79.4 and Stress incontinence N39.3 [facility] [id number] [place] [address] 87763- 0728 Dec, [facility] [id number] [place] [address] 79986- 6103 Dec, [facility] [id number] [place] [address] 20206- 1610 Dec, [facility] [id number] [place] [address] [phone] 16 Dec, 2017 Dental examination Z01.20 [facility] [id number] [place] [address] 97168- 5725 15 Dec, 2017 Acute pain of right knee M25.561 [facility] [id number] [place] [address] 17987- 9824 Dec, [facility] [id number] [place] [address] 07093- 1990 Dec, [facility] [id number] [place] [address] 02188- 2262 14 Dec, 2017 Lumbago M54.5 ; Acute pain of right knee M25.561 and Seasonal allergic rhinitis due to other allergic trigger J30.89 [facility] [address] [place] [address] 15940- 5807 Dec, Type 2 diabetes mellitus with hyperglycemia E11.65 [facility] [id number] [place] [address] 03920- 8058 Dec, [facility] [id number] [place] [address] 23581- 6630 Dec, [facility] [id number] [place] [address] 27260- 7879 23 Dec, 2017 [facility] [id number] [place] [address] 98291- 6633 Dec, [facility] [address] [place] [address] 28697- 3922 15 Dec, 2017 Chronic post-traumatic stress disorder (PTSD) F43.12 and Panic disorder with agoraphobia F40.01 [facility] [id number] [place] [address] 60803- 1582 13 Dec, 2017 Low back pain M54.5 [facility] [id number] [place] [address] 23148- 5490 12 Dec, 2017 Type 2 diabetes mellitus with hyperglycemia E11.65 ; nursing home current use of insulin Z79.4 ; Low back pain M54.5 ; Other chronic pain G89.29 and Encounter for therapeutic drug level monitoring Z51.81 [facility] [id number] [place] [address] 26821- 7001 09 Dec, 2017 Coughing R05 [facility] [id number] [place] [address] 20634- 9672 09 Dec, 2017 [facility] [id number] [place] [address] [id number] 07 Dec, 2017 Dental examination Z01.20 [facility] [id number] [place] [address] 02214- 6309 Nov, Type 2 diabetes mellitus without complications E11.9 and Encounter for therapeutic drug level monitoring Z51.81 [facility] [id number] [place] [address] 84248- 1596 Nov, [facility] [id number] [place] [address] 93077- 6143 Oct, Type 2 diabetes mellitus without complications E11.9 [facility] [id number] [place] [address] 26379- 1766 Oct, Type 2 diabetes mellitus with hyperglycemia E11.65 [facility] [address] [place] [address] 32774- 8478 Aug, Type 2 diabetes mellitus without complications E11.9 [facility] [address] [address]- 4825 Aug, Type 2 diabetes mellitus without complications E11.9 ; Hypoglycemia E16.2 ; Lumbago M54.5 ; Stress incontinence of urine N39.3 and History of TN (myocardial infarction) I25.2 [facility] [address] [address]- 2537 Jun, [facility] [id number] [place] [address] 49509- 0471 May, [facility] [id number] [place] [address] 06938- 1259 Apr, Panic disorder with agoraphobia F40.01 [facility] [id number] [place] [address] 72419- 3011 Apr, Panic disorder with agoraphobia F40.01 [facility] [id number] [place] [address] 18809- 1972 Apr, [facility] [id number] [place] [address] 16155- 1080 March, Other chronic pain G89.29 [facility] [id number] [place] [address] 68334- 0004 March, [facility] [address] [address]- 4649 March, [facility] [id number] [address]- 7261 March, [facility] [address] [place] [address]- 1668 March, [facility] [id number] [place] [address] 52442- 6503 March, Type 2 diabetes mellitus without complications E11.9 [facility] [address] [address]- 1131 March, Diarrhea, unspecified type R19.7 [facility] [address] [address]- 4201 March, Bipolar 2 disorder F31.81 ; Chronic post-traumatic stress disorder (PTSD) F43.12 and Type 2 diabetes mellitus with hyperglycemia E11.65 [facility] [address] [address]- 9728 March, [facility] [id number] [place] [address] 56443- 0513 March, [facility] [id number] [place] [address] 01132- 8630 March, Hypertension, benign I10 ; Type 2 diabetes mellitus with hyperglycemia E11.65 ; Hepatitis C B19.20 ; Gastritis and duodenitis K29.90 and Dysuria R30.0 [facility] [address] [place] [address] 52585- 6562 March, Hypertension, benign I10 ; Type 2 diabetes mellitus with hyperglycemia E11.65 ; Hepatitis C B19.20 ; Gastritis and duodenitis K29.90 and Dysuria R30.0 [facility] [id number] [place] [address] 45035- 3103 March, Panic disorder with agoraphobia F40.01 ; Chronic post- traumatic stress disorder (PTSD) F43.12 ; Epilepsy G40.909 and Bipolar I disorder with mood-congruent psychotic features F31.9 [facility] [address] [address]- 2956 March, [facility] [id number] [place] [address] 05369- 2020 March, Type 2 diabetes mellitus with hyperglycemia E11.65 [facility] [id number] [place] [address] 80241- 2408 Jan, Bipolar I disorder with duy F31.10 [facility] [id number] [place] [address] 42013- 1221 Jan, Bipolar 2 disorder F31.81 ; Chronic post-traumatic stress disorder (PTSD) F43.12 and Type 2 diabetes mellitus with hyperglycemia E11.65 [facility] [id number] [place] [address] 92399- 3945 17 Jan, 2017 [facility] [id number] [place] [address] 23515- 8032 17 Jan, 2017 [facility] [id number] [place] [address] 44121- 2679 14 Jan, 2017 Panic disorder with agoraphobia F40.01 [facility] [id number] [place] [address] 42108- 4355 13 Jan, 2017 Panic disorder with agoraphobia F40.01 ; Bipolar I disorder with mood-congruent psychotic features F31.9 ; Chronic post-traumatic stress disorder (PTSD) F43.12 and Epilepsy G40.909 [facility] [id number] [place] [address] 68667- 3965 Jan, [facility] [id number] [place] [address] 59889- 9309 Jan, [facility] [id number] [place] [address] 17505- 4797 10 Jan, 2017 Type 2 diabetes mellitus without complications E11.9 and Hypoglycemia E16.2 [facility] [id number] [place] [address] 75992- 0042 07 Jan, 2017 Type 2 diabetes mellitus without complications E11.9 ; Primary insomnia F51.01 and Hypertension, benign I10 [facility] [id number] [place] [address] 08229- 5592 06 Jan, 2017 [facility] [place] [address] [id number] Jan, [facility] [id number] [place] [address] 46531- 1112 Dec, Type 2 diabetes mellitus with hyperglycemia E11.65 [facility] [id number] [place] [address] 34558- 1527 Dec, [facility] [address] [place] [address] 42944- 3801 Dec, Bipolar 2 disorder F31.81 ; Panic disorder with agoraphobia F40.01 ; Chronic post-traumatic stress disorder (PTSD) F43.12 and Epilepsy G40.909 [facility] [id number] [place] [address] 12868- 6617 Dec, [facility] [id number] [place] [address] 64273- 4923 Dec, [facility] [id number] [place] [address] 35126- 2264 Dec, Bipolar 2 disorder F31.81 ; Panic disorder with agoraphobia F40.01 ; Chronic post-traumatic stress disorder (PTSD) F43.12 and Epilepsy G40.909 [facility] [id number] [place] [address] 78071- 1112 Dec, [facility] [id number] [place] [address] 06961- 1169 Dec, [facility] [id number] [place] [address] 44484- 1603 Dec, [facility] [id number] [place] [address] 67412- 4860 Dec, Type 2 diabetes mellitus with hyperglycemia E11.65 ; nursing home current use of insulin Z79.4 and Lumbago M54.5 [facility] [address] [place] [address] 33633- 9611 Dec, [facility] [id number] [place] [address] 01150- 9520 Dec, [facility] [id number] [place] [address] 30271- 3738 Dec, [facility] [id number] [place] [address] 62104 -1404 Dec, Pain of left leg M79.605 and Pain in right leg M79.604 [facility] [id number] [place] [address] 19974- 2193 14 Dec, 2016 [facility] [id number] [place] [address] 99386- 1117 08 Dec, 2016 Type 2 diabetes mellitus with hyperglycemia E11.65 [facility] [address] 41818- 7222 Dec, [facility] [id number] [place] [address] 02915- 0643 Dec, Type 2 diabetes mellitus with hyperglycemia E11.65 ; 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 ; Vagina, candidiasis B37.3 and Other chronic pain G89.29 [facility] [id number] [place] [address] 41870- 9028 Nov, Panic disorder with agoraphobia F40.01 [facility] [id number] [place] [address] 69741- 8761 Nov, [facility] [id number] [place] [address] 15862- 2445 Nov, [facility] [id number] [place] [address] 90985- 1092 Nov, Hypoglycemia E16.2 [facility] [id number] [place] [address] 89970- 3282 Nov, [facility] [id number] [place] [address] 38499- 7060 Nov, [facility] [id number] [place] [address] 39224- 1567 Nov, [facility] [id number] [place] [address] 22529- 7290 Nov, Type 2 diabetes mellitus with hyperglycemia E11.65 and nursing home current use of insulin Z79.4 [facility] [address] [address]- 5748 Nov, Panic disorder with agoraphobia F40.01 ; Bipolar 2 disorder F31.81 ; Chronic post-traumatic stress disorder (PTSD) F43.12 and Epilepsy G40.909 [facility] [id number] [place] [address] 66608- 7951 Nov, Panic disorder with agoraphobia F40.01 [facility] [id number] [place] [address] 06028- 1091 Oct, [facility] [id number] [place] [address] 79020- 8648 Oct, [facility] [id number] [place] [address] 03765- 9327 Oct, Bipolar 2 disorder F31.81 ; Panic disorder with agoraphobia F40.01 and Mood disorder F39 [facility] [id number] [place] [address] 58362- 8846 Oct, Diabetes E11.9 ; Type 2 diabetes mellitus with hyperglycemia E11.65 and nursing home current use of insulin Z79.4 [facility] [id number] [place] [address] 77558- 8755 Oct, [facility] [id number] [place] [address] 53034- 9148 Sep, [facility] [id number] [place] [address] 39608- 3373 Sep, Bipolar 2 disorder F31.81 and Mood disorder F39 [facility] [id number] [place] [address] 69979- 2633 Sep, [facility] [id number] [place] [address] 82304- 1040 Sep, Uncontrolled type 2 diabetes mellitus without complication, without long-term current use of insulin E11.65 [facility] [id number] [place] [address] 28308- 6097 Sep, [facility] [address], [place] [address]- 1224 Sep, [facility] [id number] [place] [address] 08352- 4239 Sep, [facility] [address], [place] [address]- 0504 Sep, [facility] [id number] [place] [address] 32032- 5238 Sep, Bipolar 2 disorder F31.81 ; Chronic post-traumatic stress disorder (PTSD) F43.12 ; Panic disorder with agoraphobia F40.01 and Epilepsy G40.909 [facility] [id number] [place] [address] 98406- 0573 Sep, Bipolar 2 disorder F31.81 ; PTSD (post-traumatic stress disorder) F43.10 and Panic disorder with agoraphobia F40.01 [facility] [address] [address]- 0556 Sep, [facility] [id number] [place] [address] 47849- 5602 28 Aug, 2016 History of seizures Z87.898 ; Panic disorder with agoraphobia F40.01 and Bipolar 2 disorder F31.81 [facility] [address], [place] [address]- 0155 Aug, [facility] [id number] [address]- 8686 17 Aug, 2016 [facility] [id number] [place] [address] 11414- 9882 Aug, [facility] [id number] [place] [address] 88890- 0635 Aug, [facility] [address] [place] [address]- 0692 Aug, [facility] [id number] [place] [address] 48335- 9435 10 Aug, 2016 [facility] [address] 73277- 1579 Aug, Hypoglycemia E16.2 and Bilateral impacted cerumen H61.23 [facility] [address] 59535- 0362 Aug, [facility] [address] 83968- 5760 Jul, [facility] [address] 82154- 4995 Jul, [facility] [address] 94084- 6781 15 Jul, 2016 Bipolar 2 disorder F31.81 ; Panic disorder with agoraphobia F40.01 ; PTSD (post-traumatic stress disorder) F43.10 and Epilepsy G40.909 [facility] [id number] [place] [address] 62122- 0068 Jul, [facility] [address] 75618- 5498 Jul, Type 2 diabetes mellitus without complications E11.9 and Coughing R05 [facility] [id number] [place] [address] 15905- 5425 Jul, [facility] [id number] [place] [address] 44320- 5785 Jun, [facility] [id number] [place] [address] 28156- 2922 Jun, Bipolar 2 disorder F31.81 ; PTSD (post-traumatic stress disorder) F43.10 and Panic disorder with agoraphobia F40.01 [facility] [id number] [place] [address] 48968- 8456 Jun, [facility] [id number] [place] [address] [phone]- 4151 Jun, [place] [id number] [place] [address] 68174- 8395 Jun, [facility] [id number] [place] [address] 47322- 6097 Jun, Type 2 diabetes mellitus without complications E11.9 and COPD (chronic obstructive pulmonary disease) J44.9 [facility] [id number] [place] [address] [id number] May, Dental examination Z01.20 and Dental caries K02.9 [place] [id number] [place] [address] 84955- 1672 May, Bipolar 2 disorder F31.81 ; PTSD (post-traumatic stress disorder) F43.10 and Panic disorder with agoraphobia F40.01 [facility] [facility] [id number] [place] [address] 93862- 1742 May, Lumbago with sciatica, right side M54.41 ; Other chronic pain G89.29 and Uncontrolled type 2 diabetes mellitus without complication, without long-term current use of insulin E11.65 [facility] [id number] [place] [address] 08284- 1177 May, Chronic bronchitis, unspecified chronic bronchitis type J42 [facility] [id number] [place] [address] 62418- 6847 May, [facility] [id number] [place] [address] 28335- 2957 May, [facility] [id number] [place] [address] 63775- 3753 May, Chest pain, unspecified type R07.9 ; Tobacco use Z72.0 ; Type 2 diabetes mellitus without complications E11.9 ; Essential hypertension I10 ; Hyperlipidemia, unspecified hyperlipidemia type E78.5 ; Obesity (BMI 30- 39.9) E66.9 ; History of hypothyroidism Z86.39 ; Chronic obstructive pulmonary disease, unspecified COPD type J44.9 ; Anxiety F41.9 ; Bilateral claudication of lower limb I73.9 and Bipolar 2 disorder F31.81 [facility] [id number] [place] [address] [phone]- [phone] 05 May, 2016 Bipolar 2 disorder F31.81 ; Panic disorder with agoraphobia F40.01 and Tobacco abuse Z72.0 [facility] [id number] [place] [address] 44004- 4113 Apr, [facility] [facility] [address] 21832- 8208 Apr, [facility] [id number] [place] [address] 28942- 6539 Apr, [facility] [id number] [place] [address] 25454- 1175 Apr, Bipolar 2 disorder F31.81 ; Panic disorder with agoraphobia F40.01 and PTSD (post-traumatic stress disorder) F43.10 [facility] [id number] [place] [address] 44664- 1209 Apr, Chronic bronchitis, unspecified chronic bronchitis type J42 ; Cervical neuritis M54.12 and Thoracic neuritis M54.14 [facility] [id number] [place] [address] 82306- 6420 Apr, [facility] [id number] [place] [address] 77648- 1737 Apr, Cervicalgia M54.2 [facility] [id number] [place] [address] 68157- 0702 14 Apr, 2016 Bipolar 2 disorder F31.81 ; Panic disorder with agoraphobia F40.01 and PTSD (post-traumatic stress disorder) F43.10 [facility] [id number] [place] [address] 11010 -7553 13 Apr, 2016 [facility] [id number] [place] [address] 06912 -3637 09 Apr, 2016 Cough R05 and Tobacco dependence F17.200 [facility] [id number] [place] [address] 13312- 7748 Apr, [facility] [id number] [place] [address] 05894- 7249 Apr, [facility] [id number] [place] [address] 56354- 5136 March, Bipolar 2 disorder F31.81 ; Panic disorder with agoraphobia F40.01 and Generalized anxiety disorder F41.1 [facility] [id number] [place] [address] 02657- 6135 March, Closed displaced fracture of fifth metatarsal bone of right foot with routine healing, subsequent encounter S92.351D [facility] [id number] [place] [address] 62094- 4305 March, Bronchitis J40 [facility] [id number] [place] [address] 84279- 4430 March, [facility] [id number] [place] [address] 12400- 7397 March, [facility] [id number] [place] [address] 96844- 0100 March, Foot pain, right M79.671 ; Cervicalgia M54.2 and Controlled type 2 diabetes mellitus without complication, unspecified 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 use 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.9 [facility] [id number] [place] [address] 69658- 4916 March, Fracture of fifth metatarsal bone of right foot S92.351A [facility] [id number] [place] [address] 86777- 5616 March, [facility] [id number] [place] [address] 16364- 8989 Jan, Fracture of fifth metatarsal bone of right foot S92.351A [facility] [id number] [place] [address] 07383- 6641 Jan, Bipolar 2 disorder F31.81 ; PTSD (post-traumatic stress disorder) F43.10 ; Panic disorder with agoraphobia F40.01 and Epilepsy G40.909 [facility] [address] 42483- 5037 Jan, History of TN (myocardial infarction) I25.2 and History of high cholesterol Z86.39 [facility] [address] 35003- 4745 Jan, Bipolar 2 disorder F31.81 ; Panic disorder with agoraphobia F40.01 ; Tobacco abuse Z72.0 and PTSD (post-traumatic stress disorder) F43.[address] 72403- 6886 Jan, Fracture of fifth metatarsal bone of right foot S92.351A [address] 50339- 1183 Jan, [facility] [address] 67471- 4713 Jan, History of high cholesterol Z86.39 [facility] [address] 38043- 5120 Jan, History of TN (myocardial infarction) I25.[address] 21182- 0974 Jan, [facility] [address] 37397- 5649 Dec, Back pain M54.9 ; Diabetes E11.9 ; Right knee pain M25.561 and Chest pain R07.[address] 90912- 4616 Dec, [facility] [address] 55236- 5442 Dec, [facility] [address] 58233- 0076 Dec, Cervicalgia M54.2 [facility] [address] 49357- 8742 Dec, Bipolar 2 disorder F31.81 ; PTSD (post-traumatic stress disorder) F43.10 ; Panic disorder with agoraphobia F40.01 and Epilepsy G40.909 [facility] [address] 90449- 5293 Dec, Bipolar 2 disorder F31.81 ; PTSD (post-traumatic stress disorder) F43.10 and Panic disorder with agoraphobia F40.01 [facility] [address] 09755- 1186 Dec, Diabetes E11.9 [facility] [address] 81480- 9975 Dec, [facility] [address] 85985- 2286 Dec, Other chronic pain G89.29 ; Hepatitis C B19.20 and History of seizures Z87.898 [facility] [address] 52794- 2104 Dec, [facility] [address] 10406- 9493 Dec, Bipolar 2 disorder F31.81 and Other chronic pain G89.29 [facility] [address] 78296- 3240 Dec, Cervicalgia M54.2 and Diabetes E11.9 [facility] [address] 76585- 1332 Dec, [facility] [address] 81603- 5133 Dec, [facility] [address] 01077- 8091 Dec, [place] [id number] [place] [address] 00159- 4363 Dec, [facility] [id number] [place] [address] 22527- 8510 Dec, Type 2 diabetes mellitus without complications E11.9 [facility] [id number] [place] [address] 21248- 5438 Dec, [facility] [id number] [place] [address] 82101- 8716 Dec, History of seizures Z87.898 and Hepatitis C B19.20 [facility] [address] 33109- 7428 Dec, Hepatitis C B19.20 [facility] [id number] [place] [address] 63934- 3440 Dec, [facility] [address] 40063- 5176 Dec, Cervicalgia M54.2 ; COPD (chronic obstructive pulmonary disease) J44.9 and Hepatitis C B19.20 [facility] [id number] [place] [address] 49322- 8881 Dec, Bipolar 2 disorder F31.81 ; History of hypertension Z86.79 ; History of anxiety Z86.59 ; Panic disorder with agoraphobia F40.01 and Epilepsy G40.909 [facility] [id number] [place] [address] 55694- 1633 Nov, [facility] [id number] [place] [address] 81476- 2318 Nov, [place] [id number] [place] [address] 57262- 2359 Nov, History of seizures Z87.898 ; OAB (overactive bladder) N32.81 ; Lumbago M54.5 ; Other chronic pain G89.29 ; Cervicalgia M54.2 ; Tobacco abuse Z72.0 ; Tobacco abuse counseling Z71.6 and Impaired fasting glucose R73.01 [facility] [id number] [place] [address] 64327- 4327 14 Nov, 2015 Bipolar 2 disorder F31.81 ; PTSD (post-traumatic stress disorder) F43.10 ; History of anxiety Z86.59 ; History of COPD Z87.09 ; Panic disorder with agoraphobia F40.01 and Moderate depressed bipolar I disorder F31.32 [facility] [id number] [place] [address] 52101- 5296 12 Nov, 2015 PTSD (post-traumatic stress disorder) F43.10 [facility] [address] [id number] Nov, 2015 Dental examination Z01.20 and Dental caries K02.9 [place] [id number] [place] [address] 17016- 4861 08 Nov, 2015 History of hypertension Z86.79 ; History of hypothyroidism Z86.39 ; History of high cholesterol Z86.39 ; History of COPD Z87.09 and Overactive bladder N32.81 [facility] [id number] [place] [address] 43929- 8191 Nov, Bipolar 2 disorder F31.81 and PTSD (post-traumatic stress disorder) F43.10 [address] [place] [address] 88311- 2625 Nov, PTSD (post-traumatic stress disorder) F43.10 ; Panic disorder with agoraphobia F40.01 ; Epilepsy G40.909 and Moderate depressed bipolar I disorder F31.32 [facility] [id number] [place] [address] 29001- 8047 Nov, [place] [id number] [place] [address] 02804- 8827 Nov, [facility] [id number] [place] [address] 69103- 7483 Oct, [place] [id number] [place] [address] 72024- 4696 Oct, Generalized anxiety disorder F41.1 ; Major depression, recurrent F33.9 and PTSD (post-traumatic stress disorder) F43.10 [facility] [id number] [place] [address] 84520- 3394 Oct, Elevated fasting glucose R73.[address] 81801- 1542 Oct, Elevated fasting glucose R73.01 [facility] [id number] [place] [address] 99813- 5701 Oct, History of COPD Z87.[address] 48783- 3234 Oct, General medical exam Z00.00 ; History of hypertension Z86.79 ; History of hypothyroidism Z86.39 ; History of hepatitis Z86.19 ; History of high cholesterol Z86.39 and History of seizures Z87.898 [place] [id number] [place] [address] 85519- 8695 Oct, General medical exam Z00.00 ; History of hypertension Z86.79 ; History of hypothyroidism Z86.39 ; Bipolar 2 disorder F31.81 ; PTSD ( post-traumatic stress disorder) F43.10 ; History of hepatitis Z86.19 ; History of high cholesterol Z86.39 ; History of anxiety Z86.59 ; History of seizures Z87.898 ; History of TN (myocardial infarction) I25.2 and History of COPD Z87.09 [facility] [address] [place] [address] 49216- 8102 Oct, Generalized anxiety disorder F41.1 ; Depression F32.9 and PTSD (post-traumatic stress disorder) F43.10 [address] [place] [address] 52300- 1240 Jan, [address] 77345- 0351 Jan, [facility] [address] [facility] [id number] [place] [address]- 2546 Jun, [facility] [address] [place] [id number] Jun, [facility] [address] [facility] [id number] [address]- 2546 May, [facility] [address] [facility] [id number], [place] [address]- 2546 May, [facility] [address] [place] [id number] May, [facility] [address] [facility] [id number] [address]- 2546 May, [facility] [address] [place] [id number] May, [facility] [address] [facility] [id number] [address]- 2546 May, IMMUNIZATIONS No Known Immunizations SOCIAL HISTORY Never Assessed REASON FOR VISIT RADHA MAX note PLAN OF CARE VITAL SIGNS MEDICATIONS Medication Instructions Dosage Frequency Start Date End Date Duration Status Ditropan XL 10 mg Orally Once a day 1 tablet 24h Aug, Nov, 30 day(s) Active RESULTS No Results PROCEDURES No Known procedures INSTRUCTIONS MEDICATIONS ADMINISTERED No Known Medications MEDICAL (GENERAL) HISTORY Type Description Date Medical History Hypothyroidism Medical History High cholesterol Medical History Hypertension Medical History Brain seizure Medical History Asthma Medical History COPD Medical History Hep C -2004 Medical History TN x 2 last in 2009 Medical History [...]
--- OUTSIDE RECORDS SUMMARY | 2019-01-26 08:29 | XMS REPORT ---
Author Author GERARDO KISER [facility] Address [address] [place] [address] Care Team Providers Care Member Service Specialist Name Role Phone MARGI GERARDO Unavailable PROBLEMS Type Condition ICD9-CM Code OTD83-BD Code Onset Dates Condition Status SNOMED Code Problem Panic disorder with agoraphobia F40.01 Active 06120405 Problem Bipolar 2 disorder F31.81 Active 80626307 Problem OAB (overactive bladder) N32.81 Active 300891283 Problem Epilepsy G40.909 Active 07819810 Problem Other chronic pain G89.29 Active 36923153 Problem Cervicalgia M54.2 Active 04978310 Problem Tobacco abuse Z72.0 Active 79030101 Problem Lumbago M54.5 Active 358725858 Problem Hepatitis C B19.20 Active 29800710 Problem Gastritis and duodenitis K29.90 Active 961019945 Problem COPD (chronic obstructive pulmonary disease) J44.9 Active 55691571 Problem Bipolar I disorder with mood-congruent psychotic features F31.9 Active 128065614 Problem Diabetes E11.9 Active 20259421 Problem Bipolar I disorder with duy F31.10 Active 51997538 Problem Seasonal allergic rhinitis due to other allergic trigger J30.89 Active 113825582 Problem Stress incontinence of urine N39.3 Active 60095895 Problem Irritable bowel syndrome with diarrhea K58.0 Active 893551371 Problem Stress incontinence N39.3 Active 73252310 Problem Hypoglycemia E16.2 Active 607322830 Problem Bilateral claudication of lower limb I73.9 Active 061249037 Problem Type 2 diabetes mellitus without complications E11.9 Active 379365598 Problem Hyperlipidemia, unspecified hyperlipidemia type E78.5 Active 27607288 Problem Hypertension, unspecified type I10 Active 49163188 Problem El's esophageal ulceration K22.10 Active 356858772 Problem Bipolar affective disorder, currently depressed, mild F31.31 Active 555519444 Problem History of hypertension Z86.79 Active 432018260 Problem manager 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 current use of insulin Z79.4 Active 600201880 Problem History of hypothyroidism Z86.39 Active 778341034 Problem Mood disorder F39 Active 41647538 Problem History of high cholesterol Z86.39 Active 051864963 Problem Chronic post-traumatic stress disorder (PTSD) F43.12 Active 640128556 Problem History of IA (myocardial infarction) I25.2 Active 300893293 Problem Type 2 diabetes mellitus with hyperglycemia E11.65 Active 888079786 Problem Hypertension, benign I10 Active 32290019 Problem History of seizures Z87.898 Active 011990719 Problem Primary insomnia F51.01 Active 4322086 Problem Uncontrolled type 2 diabetes mellitus without complication, without long-term current use of insulin E11.65 Active 687836104 Problem Type 2 diabetes mellitus with hyperglycemia E11.65 Active 994144555 ALLERGIES Substance Reaction Event Type Date Status Penicillin V Potassium Unknown Drug Allergy Aug, Active Metformin HCl diarrhea Drug Allergy Aug, Active Fentanyl halucinations/insomnia Drug Allergy Aug, Active ENCOUNTERS Encounter Location Date Diagnosis [facility] [id number] [place] [address] 88129- 3470 Apr, [facility] [id number] [place] [address] 62073- 6183 March, [facility] [id number] [place] [address] 01184- 4763 March, [facility] [id number] [place] [address] 20857- 3087 March, [facility] [id number] [place] [address] 93765- 0858 March, [facility] [id number] [place] [address] 48553- 8323 March, Lumbago M54.5 [facility] [id number] [place] [address] 96673- 1786 March, [facility] [id number] [place] [address] 99940- 5233 March, Irritable bowel syndrome with diarrhea K58.0 ; Primary insomnia F51.01 ; Type 2 diabetes mellitus with hyperglycemia E11.65 and senior living current use of insulin Z79.4 [facility] [id number] [place] [address] 30392- 5397 March, [facility] [id number] [place] [address] 18790- 1421 Jan, [facility] [id number]- 2033 Jan, [facility] [id number] [place] [address] 79623- 6758 Jan, [facility] [address] 29719- 4167 Jan, [facility] [address] 46360- 2080 Jan, Dizziness R42 [facility] [id number] [place] [address] 97830- 7794 Jan, Bipolar affective disorder, currently depressed, mild F31.31 ; Panic disorder with agoraphobia F40.01 and Chronic post-traumatic stress disorder (PTSD) F43.12 [facility] [id number] [place] [address] 26834- 1119 Jan, Dizziness R42 [facility] [id number] [place] [address] 32771- 5416 Jan, Chest pain, unspecified type R07.9 ; Exertional dyspnea R06.09 ; Hypertension, unspecified type I10 and Hyperlipidemia, unspecified hyperlipidemia type E78.5 [facility] [id number] [place] [address] 43570- 3594 Jan, [facility] [address] 54889- 4086 Jan, Lumbago M54.5 [facility] [id number] [place] [address] 77143- 8240 Jan, El's esophageal ulceration K22.10 ; Blister (nonthermal ) of oral cavity, initial encounter S00.522A ; Local infection of the skin and subcutaneous tissue, unspecified L08.9 ; Type 2 diabetes mellitus with hyperglycemia E11.65 ; manager 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 current use of insulin Z79.4 and Stress incontinence N39.3 [facility] [id number] [place] [address] 22225- 3043 27 Dec, 2017 [facility] [address] 90713- 5730 27 Dec, 2017 [facility] [id number] [place] [address] 93007- 1620 19 Dec, 2017 [facility] [id number] [place] [address] [id number] 16 Dec, 2017 Dental examination Z01.20 [facility] [address] 64566- 6516 15 Dec, 2017 Acute pain of right knee M25.561 [facility] [id number] [place] [address] 39356- 6810 14 Dec, 2017 [facility] [address] 20378- 0780 14 Dec, 2017 [facility] [id number] [place] [address] 51136- 3622 14 Dec, 2017 Lumbago M54.5 ; Acute pain of right knee M25.561 and Seasonal allergic rhinitis due to other allergic trigger J30.89 [facility] [id number] [place] [address] 30582- 4640 12 Dec, 2017 Type 2 diabetes mellitus with hyperglycemia E11.65 [facility] [address] 07736- 6727 08 Dec, 2017 [facility] [id number] [place] [address] 44825- 5712 Dec, [facility] [address] 24088- 9318 Dec, [facility] [id number] [place] [address] 45619- 9873 Dec, [facility] [id number] [place] [address] 18624- 6269 Dec, Chronic post-traumatic stress disorder (PTSD) F43.12 and Panic disorder with agoraphobia F40.01 [facility] [id number] [place] [address] 99756- 0881 Dec, Low back pain M54.5 [facility] [id number] [place] [address] 56232- 3468 Dec, Type 2 diabetes mellitus with hyperglycemia E11.65 ; senior living current use of insulin Z79.4 ; Low back pain M54.5 ; Other chronic pain G89.29 and Encounter for therapeutic drug level monitoring Z51.81 [facility] [id number] [place] [address] 33043- 8126 Dec, Coughing R05 [facility] [id number] [place] [address] 93955- 1538 Dec, [facility] [id number] [place] [address] [id number] 07 Dec, 2017 Dental examination Z01.20 [facility] [id number] [place] [address] 22153- 9315 Nov, Type 2 diabetes mellitus without complications E11.9 and Encounter for therapeutic drug level monitoring Z51.81 [facility] [id number] [place] [address] 60782- 2696 Nov, [facility] [id number] [place] [address] 59602- 8335 Oct, Type 2 diabetes mellitus without complications E11.9 [facility] [id number] [place] [address] 04494- 6191 Oct, Type 2 diabetes mellitus with hyperglycemia E11.65 [facility] [address] [address]- 3575 Aug, Type 2 diabetes mellitus without complications E11.9 [facility] [id number] [place] [address] 33853- 8549 Aug, Type 2 diabetes mellitus without complications E11.9 ; Hypoglycemia E16.2 ; Lumbago M54.5 ; Stress incontinence of urine N39.3 and History of IA (myocardial infarction) I25.2 [facility] [id number] [place] [address] 64584- 3715 Jun, [facility] [id number] [place] [address] 88432- 9654 May, [facility] [id number] [place] [address] 20582- 7000 Apr, Panic disorder with agoraphobia F40.01 [facility] [id number] [place] [address] 23253- 5417 Apr, Panic disorder with agoraphobia F40.01 [facility] [address] [address]- 1880 Apr, [facility] [id number] [place] [address] 96162- 2507 March, Other chronic pain G89.29 [facility] [address] [address]- 5349 March, [facility] [address] [address]- 9175 March, [facility] [address] [address]- 7482 March, [facility] [address] [address]- 2011 March, [facility] [address] [address]- 3020 March, Type 2 diabetes mellitus without complications E11.9 [facility] [address] [address]- 7580 16 Mar, 2017 Diarrhea, unspecified type R19.7 [facility] [id number] [place] [address] 01302- 2334 March, Bipolar 2 disorder F31.81 ; Chronic post-traumatic stress disorder (PTSD) F43.12 and Type 2 diabetes mellitus with hyperglycemia E11.65 [facility] [id number] [place] [address] 37714- 0385 March, [facility] [id number] [place] [address] 71237- 1086 March, [facility] [id number] [place] [address] 54250- 0128 March, Hypertension, benign I10 ; Type 2 diabetes mellitus with hyperglycemia E11.65 ; Hepatitis C B19.20 ; Gastritis and duodenitis K29.90 and Dysuria R30.0 [facility] [id number] [place] [address] 13762- 0148 March, Hypertension, benign I10 ; Type 2 diabetes mellitus with hyperglycemia E11.65 ; Hepatitis C B19.20 ; Gastritis and duodenitis K29.90 and Dysuria R30.0 [facility] [id number] [place] [address] 09480- 0611 March, Panic disorder with agoraphobia F40.01 ; Chronic post- traumatic stress disorder (PTSD) F43.12 ; Epilepsy G40.909 and Bipolar I disorder with mood-congruent psychotic features F31.9 [facility] [address] [address]- 2857 March, [facility] [id number] [place] [address] 63582- 1823 March, Type 2 diabetes mellitus with hyperglycemia E11.65 [facility] [address] [address]- 0397 Jan, Bipolar I disorder with duy F31.10 [facility] [id number] [place] [address] 77552- 3930 17 Jan, 2017 Bipolar 2 disorder F31.81 ; Chronic post-traumatic stress disorder (PTSD) F43.12 and Type 2 diabetes mellitus with hyperglycemia E11.65 [facility] [id number] [place] [address] 73376- 0635 Jan, [facility] [address] 05004- 0428 Jan, [facility] [id number] [place] [address] 25509- 4311 14 Jan, 2017 Panic disorder with agoraphobia F40.01 [facility] [id number] [place] [address] 20271- 8473 13 Jan, 2017 Panic disorder with agoraphobia F40.01 ; Bipolar I disorder with mood-congruent psychotic features F31.9 ; Chronic post-traumatic stress disorder (PTSD) F43.12 and Epilepsy G40.909 [facility] [id number] [place] [address] 52512- 8360 Jan, [facility] [id number] [place] [address] 68503- 7556 Jan, [facility] [id number] [place] [address] 64200- 5719 Jan, Type 2 diabetes mellitus without complications E11.9 and Hypoglycemia E16.2 [facility] [id number] [place] [address] 39473- 7173 07 Jan, 2017 Type 2 diabetes mellitus without complications E11.9 ; Primary insomnia F51.01 and Hypertension, benign I10 [facility] [address] 76972- 8419 Jan, [facility] [id number] [place] [address] [id number] Jan, [facility] [id number] [place] [address] 50797- 1129 Dec, Type 2 diabetes mellitus with hyperglycemia E11.65 [facility] [id number] [place] [address] 13455- 7363 Dec, [facility] [id number] [place] [address] 66737- 0743 Dec, Bipolar 2 disorder F31.81 ; Panic disorder with agoraphobia F40.01 ; Chronic post-traumatic stress disorder (PTSD) F43.12 and Epilepsy G40.909 [facility] [id number] [place] [address] 39758- 9304 Dec, [facility] [id number] [place] [address] 22349- 8361 Dec, [facility] [id number] [place] [address] 87506- 6599 Dec, Bipolar 2 disorder F31.81 ; Panic disorder with agoraphobia F40.01 ; Chronic post-traumatic stress disorder (PTSD) F43.12 and Epilepsy G40.909 [facility] [id number] [place] [address] 49063- 4314 Dec, [facility] [id number] [place] [address] 99211- 7597 Dec, [facility] [id number] [place] [address] 62046- 9470 Dec, [facility] [id number] [place] [address] 02665- 6060 Dec, Type 2 diabetes mellitus with hyperglycemia E11.65 ; senior living current use of insulin Z79.4 and Lumbago M54.5 [facility] [id number] [place] [address] 05244- 3912 Dec, [facility] [id number] [place] [address] 97169- 8892 Dec, [facility] [address] 35364- 6562 Dec, [facility] [id number] [place] [address] 86096 -8597 Dec, Pain of left leg M79.605 and Pain in right leg M79.604 [facility] [id number] [place] [address] 59331- 3941 14 Dec, 2016 [facility] [address] 39237- 8003 08 Dec, 2016 Type 2 diabetes mellitus with hyperglycemia E11.65 [facility] [address] 51234- 9777 Dec, [facility] [id number] [place] [address] 22907- 9762 Dec, Type 2 diabetes mellitus with hyperglycemia E11.65 ; senior living current use of insulin Z79.4 ; Vagina, candidiasis B37.3 and Other chronic pain G89.29 [facility] [id number] [place] [address] 57510- 0070 Nov, Panic disorder with agoraphobia F40.01 [facility] [id number] [place] [address] 08327- 0757 Nov, [facility] [id number] [place] [address] 20103- 4907 Nov, [facility] [id number] [place] [address] 60570- 1019 Nov, Hypoglycemia E16.2 [facility] [id number] [place] [address] 26289- 6481 Nov, [facility] [address] 24254- 3025 Nov, [facility] [id number] [place] [address] 97110- 0832 Nov, [facility] [address] 18084- 6477 Nov, Type 2 diabetes mellitus with hyperglycemia E11.65 and senior living current use of insulin Z79.4 [facility] [id number] [place] [address] 31097- 4324 Nov, Panic disorder with agoraphobia F40.01 ; Bipolar 2 disorder F31.81 ; Chronic post-traumatic stress disorder (PTSD) F43.12 and Epilepsy G40.909 [facility] [id number] [place] [address] 59867- 7715 Nov, Panic disorder with agoraphobia F40.01 [facility] [id number] [place] [address] 92000- 4691 Oct, [facility] [id number] [place] [address] 02737- 3577 Oct, [facility] [id number] [place] [address] 80041- 1611 Oct, Bipolar 2 disorder F31.81 ; Panic disorder with agoraphobia F40.01 and Mood disorder F39 [facility] [id number] [place] [address] 12100- 3896 Oct, Diabetes E11.9 ; Type 2 diabetes mellitus with hyperglycemia E11.65 and senior living current use of insulin Z79.4 [facility] [id number] [place] [address] 26271- 0040 Oct, [facility] [id number] [place] [address] 34470- 0880 Sep, [facility] [id number] [place] [address] 60892- 6400 Sep, Bipolar 2 disorder F31.81 and Mood disorder F39 [facility] [id number] [place] [address] 76950- 7225 Sep, [facility] [id number] [place] [address] 01145- 1920 Sep, Uncontrolled type 2 diabetes mellitus without complication, without long-term current use of insulin E11.65 [facility] [address], [place] [address]- 0991 Sep, [facility] [id number] [place] [address] 21854- 2462 Sep, [facility] [id number] [place] [address] 27882- 6772 Sep, [facility] [id number] [place] [address] 48208- 2932 Sep, [facility] [id number] [place] [address] 90922- 6482 Sep, Bipolar 2 disorder F31.81 ; Chronic post-traumatic stress disorder (PTSD) F43.12 ; Panic disorder with agoraphobia F40.01 and Epilepsy G40.909 [facility] [id number] [place] [address] 09862- 5078 Sep, Bipolar 2 disorder F31.81 ; PTSD (post-traumatic stress disorder) F43.10 and Panic disorder with agoraphobia F40.01 [facility] [id number] [place] [address] 16259- 6245 Sep, [facility] [id number] [place] [address] 60452- 6777 28 Aug, 2016 History of seizures Z87.898 ; Panic disorder with agoraphobia F40.01 and Bipolar 2 disorder F31.81 [facility] [address], [place] [address]- 9725 Aug, [facility] [id number] [place] [address] 64990- 3281 17 Aug, 2016 [facility] [id number] [place] [address] 97681- 0431 Aug, [facility] [id number] [place] [address] 59866- 3660 Aug, [facility] [id number] [place] [address] 56974- 0567 Aug, [facility] [address] 20640- 5225 Aug, [facility] [address] 29173- 4962 Aug, Hypoglycemia E16.2 and Bilateral impacted cerumen H61.23 [facility] [address] 65735- 7131 Aug, [facility] [address] 62886- 0743 Jul, [facility] [address] 98109- 2018 Jul, [facility] [address] 85293- 8942 15 Jul, 2016 Bipolar 2 disorder F31.81 ; Panic disorder with agoraphobia F40.01 ; PTSD (post-traumatic stress disorder) F43.10 and Epilepsy G40.909 [facility] [id number] [place] [address] 87780- 3449 Jul, [facility] [id number] [place] [address] 88627- 0131 Jul, Type 2 diabetes mellitus without complications E11.9 and Coughing R05 [facility] [id number] [place] [address] 82288- 5906 Jul, [facility] [id number] [place] [address] 79722- 8679 Jun, [facility] [id number] [place] [address] 58142- 8144 Jun, Bipolar 2 disorder F31.81 ; PTSD (post-traumatic stress disorder) F43.10 and Panic disorder with agoraphobia F40.01 [facility] [id number] [place] [address] 70986- 3237 Jun, [facility] [address] [address]- 8766 Jun, [facility] [id number] [place] [address] 21352- 1352 Jun, [facility] [id number] [place] [address] 73371- 2328 Jun, Type 2 diabetes mellitus without complications E11.9 and COPD (chronic obstructive pulmonary disease) J44.9 [facility] [address] [place] [address] [id number] May, Dental examination Z01.20 and Dental caries K02.9 [facility] [address] [place] [phone] May, Bipolar 2 disorder F31.81 ; PTSD (post-traumatic stress disorder) F43.10 and Panic disorder with agoraphobia F40.01 [place] [id number] [place] [phone]- [phone] May, Lumbago with sciatica, right side M54.41 ; Other chronic pain G89.29 and Uncontrolled type 2 diabetes mellitus without complication, without long-term current use of insulin E11.65 [place] [id number] [place] [address] [phone] May, Chronic bronchitis, unspecified chronic bronchitis type J42 [place] [id number] [place] [address] [phone] May, [place] [id number] [place] [phone] May, [place] [address] [place] [id number] [place] [phone] May, Chest pain, unspecified type R07.9 ; Tobacco use Z72.0 ; Type 2 diabetes mellitus without complications E11.9 ; Essential hypertension I10 ; Hyperlipidemia, unspecified hyperlipidemia type E78.5 ; Obesity (BMI 30- 39.9) E66.9 ; History of hypothyroidism Z86.39 ; Chronic obstructive pulmonary disease, unspecified COPD type J44.9 ; Anxiety F41.9 ; Bilateral claudication of lower limb I73.9 and Bipolar 2 disorder F31.81 [facility] [id number] [place] [phone]- [phone] 05 May, 2016 Bipolar 2 disorder F31.81 ; Panic disorder with agoraphobia F40.01 and Tobacco abuse Z72.0 [facility] [address] [place] [id number] [place] [address] [phone] Apr, [facility] [address] [place] [id number] [place] [address] [phone] Apr, [place] [address] [place] [id number] [place] [address] [phone]- [phone] Apr, [place] [address] [place] [id number] [place] [address] 70135- 2736 Apr, Bipolar 2 disorder F31.81 ; Panic disorder with agoraphobia F40.01 and PTSD (post-traumatic stress disorder) F43.10 [place] [address] [place] [id number] [place] [address] [phone]- [phone] Apr, Chronic bronchitis, unspecified chronic bronchitis type J42 ; Cervical neuritis M54.12 and Thoracic neuritis M54.14 [place] [facility] [id number] [place] [address] 97509- 5753 Apr, [place] [facility] [id number] [place] [address] 00713- 1389 Apr, Cervicalgia M54.2 [place] [facility] [id number] [place] [address] 65859- 9654 Apr, Bipolar 2 disorder F31.81 ; Panic disorder with agoraphobia F40.01 and PTSD (post-traumatic stress disorder) F43.10 [facility] [id number] [place] [address] 57654 -0211 Apr, [facility] [id number], [place] [address] Apr, Cough R05 and Tobacco dependence F17.200 [facility] [id number] [place] [address] 47081- 6228 Apr, [facility] [id number] [place] [address] 94530- 4308 Apr, [facility] [id number] [place] [address] 46516- 4611 March, Bipolar 2 disorder F31.81 ; Panic disorder with agoraphobia F40.01 and Generalized anxiety disorder F41.1 [facility] [id number] [place] [address] 51974- 4522 March, Closed displaced fracture of fifth metatarsal bone of right foot with routine healing, subsequent encounter S92.351D [facility] [facility] [id number] [place] [address] 20857- 9605 March, Bronchitis J40 [facility] [facility] [id number] [place] [address] 61474- 0884 March, [facility] [id number] [place] [address] 01794- 6629 March, [facility] [id number] [place] [address] 82434- 2248 March, Foot pain, right M79.671 ; Cervicalgia M54.2 and Controlled type 2 diabetes mellitus without complication, 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 operations manager insulin use status E11.9 [facility] [id number] [address] March, Fracture of fifth metatarsal bone of right foot S92.351A [facility] [id number] [place] [address] 26984- 0629 March, [facility] [id number] [place] [address] 81867- 8620 Jan, Fracture of fifth metatarsal bone of right foot S92.351A [facility] [id number] [place] [address] 68306- 1574 Jan, Bipolar 2 disorder F31.81 ; PTSD (post-traumatic stress disorder) F43.10 ; Panic disorder with agoraphobia F40.01 and Epilepsy G40.909 [facility] [id number] [place] [address] 49424- 4400 Jan, History of IA (myocardial infarction) I25.2 and History of high cholesterol Z86.39 [facility] [id number] [place] [address] 36518- 1737 Jan, Bipolar 2 disorder F31.81 ; Panic disorder with agoraphobia F40.01 ; Tobacco abuse Z72.0 and PTSD (post-traumatic stress disorder) F43.10 [facility] [id number] [place] [address] 29728- 1830 Jan, Fracture of fifth metatarsal bone of right foot S92.351A [facility] [id number] [place] [address] 59860- 9489 Jan, [facility] [id number] [place] [address] 48932- 2774 Jan, History of high cholesterol Z86.39 [facility] [id number] [place] [address] 26036- 5454 Jan, History of IA (myocardial infarction) I25.2 [facility] [id number] [place] [address] 17223- 0634 Jan, [facility] [id number] [place] [address] 54659- 1195 Dec, Back pain M54.9 ; Diabetes E11.9 ; Right knee pain M25.561 and Chest pain R07.9 [facility] [id number] [place] [address] 56179- 0810 Dec, [facility] [address] 69483- 3041 Dec, [place] [id number] [place] [address] 89987- 9661 Dec, Cervicalgia M54.2 [facility] [id number] [place] [address] 38732- 4382 Dec, Bipolar 2 disorder F31.81 ; PTSD (post-traumatic stress disorder) F43.10 ; Panic disorder with agoraphobia F40.01 and Epilepsy G40.909 [facility] [id number] [place] [address] 53355- 1762 Dec, Bipolar 2 disorder F31.81 ; PTSD (post-traumatic stress disorder) F43.10 and Panic disorder with agoraphobia F40.01 [facility] [id number] [place] [address] 38101- 0125 Dec, Diabetes E11.9 [facility] [address] 13273- 3918 Dec, [facility] [id number] [place] [address] 33247- 8477 Dec, Other chronic pain G89.29 ; Hepatitis C B19.20 and History of seizures Z87.898 [facility] [id number] [place] [address] 48398- 0852 Dec, [facility] [id number] [place] [address] 46915- 9888 Dec, Bipolar 2 disorder F31.81 and Other chronic pain G89.29 [facility] [id number] [place] [address] 78332- 1126 Dec, Cervicalgia M54.2 and Diabetes E11.9 [facility] [id number] [place] [address] 82768- 1404 Dec, [facility] [facility] [address] 22452- 8547 Dec, [facility] [id number] [place] [address] 45972- 5575 Dec, [facility] [address] 14939- 2481 Dec, [facility] [id number] [place] [address] 74607- 2990 Dec, Type 2 diabetes mellitus without complications E11.9 [facility] [address] 23587- 2578 Dec, [facility] [address] 60723- 8745 Dec, History of seizures Z87.898 and Hepatitis C B19.20 [facility] [facility] [address] 22121- 9211 Dec, Hepatitis C B19.20 [facility] [facility] [address] 94574- 3250 Dec, [facility] [id number] [place] [address] 42633- 8595 Dec, Cervicalgia M54.2 ; COPD (chronic obstructive pulmonary disease) J44.9 and Hepatitis C B19.20 [facility] [id number] [place] [address] 43956- 1056 Dec, Bipolar 2 disorder F31.81 ; History of hypertension Z86.79 ; History of anxiety Z86.59 ; Panic disorder with agoraphobia F40.01 and Epilepsy G40.909 [facility] [id number] [place] [address] 64031- 1978 Nov, [facility] [id number] [place] [address] 21761- 7936 Nov, [facility] [id number] [place] [address] 49252- 6114 Nov, History of seizures Z87.898 ; OAB (overactive bladder) N32.81 ; Lumbago M54.5 ; Other chronic pain G89.29 ; Cervicalgia M54.2 ; Tobacco abuse Z72.0 ; Tobacco abuse counseling Z71.6 and Impaired fasting glucose R73.01 [facility] [address] [place] [address] 91416- 8992 Nov, Bipolar 2 disorder F31.81 ; PTSD (post-traumatic stress disorder) F43.10 ; History of anxiety Z86.59 ; History of COPD Z87.09 ; Panic disorder with agoraphobia F40.01 and Moderate depressed bipolar I disorder F31.[address] [address]20- 4139 12 Nov, 2015 PTSD (post-traumatic stress disorder) F43.10 [facility] [id number] [place] [address] [id number] Nov, Dental examination Z01.20 and Dental caries K02.9 [facility] [address] [place], [place] [id number] [place] [address] 92017- 8308 Nov, History of hypertension Z86.79 ; History of hypothyroidism Z86.39 ; History of high cholesterol Z86.39 ; History of COPD Z87.09 and Overactive bladder N32.81 [facility] [id number] [place] [address] 32321- 0908 Nov, Bipolar 2 disorder F31.81 and PTSD (post-traumatic stress disorder) F43.10 [facility] [id number] [place] [address] 76146- 8001 Nov, PTSD (post-traumatic stress disorder) F43.10 ; Panic disorder with agoraphobia F40.01 ; Epilepsy G40.909 and Moderate depressed bipolar I disorder F31.32 [facility] [id number] [place] [address] 22394- 3151 Nov, [facility] [address] 63261- 0477 Nov, [id number] [place] [address] 41431- 6206 Oct, [place] [id number]- 9287 Oct, Generalized anxiety disorder F41.1 ; Major depression, recurrent F33.9 and PTSD (post-traumatic stress disorder) F43.[address] 30784- 6514 Oct, Elevated fasting glucose R73.[address] 66914- 6621 Oct, Elevated fasting glucose R73.[address] 40379- 1899 Oct, History of COPD Z87.[address] 19753- 2294 Oct, General medical exam Z00.00 ; History of hypertension Z86.79 ; History of hypothyroidism Z86.39 ; History of hepatitis Z86.19 ; History of high cholesterol Z86.39 and History of seizures Z87.898 [place] [id number] [place] [address] 08457- 4846 Oct, General medical exam Z00.00 ; History of hypertension Z86.79 ; History of hypothyroidism Z86.39 ; Bipolar 2 disorder F31.81 ; PTSD ( post-traumatic stress disorder) F43.10 ; History of hepatitis Z86.19 ; History of high cholesterol Z86.39 ; History of anxiety Z86.59 ; History of seizures Z87.898 ; History of IA (myocardial infarction) I25.2 and History of COPD Z87.09 [place] [id number] [place] [address] 98713- 1108 Oct, Generalized anxiety disorder F41.1 ; Depression F32.9 and PTSD (post-traumatic stress disorder) F43.[address] 56664- 3797 Jan, [facility] [address] [facility] [id number] [address]- 2546 Jan, [facility] [address] [facility] [id number] [address]- 2546 Jun, [facility] [address] [place] [id number] Jun, [facility] [address] [facility] [id number], [place] [address]- 2546 May, [facility] [address] [facility] [id number], [place] [address]- 2546 May, [facility] [address] [place] [id number] May, [facility] [id number] [address]- 2546 May, [facility] [address] [place] [id number] May, [facility] [address] [facility] [id number], [place] [address]- 2546 May, IMMUNIZATIONS No Known Immunizations SOCIAL HISTORY Never Assessed REASON FOR VISIT blood sugar issues, Requests refill on Novolog. , Needs refills on meds jamilah insulins, just moved back and out of everything. CbrumbackRN, Pt reports some leaking of urination, does not want mentioned out loud with other person in room. PLAN OF CARE Activity Details Follow Up 4 Weeks Reason:dm2 ooc VITAL SIGNS Height 62 in 2017-08-24 Weight 180.9 lbs 2017-08-24 Temperature 98.1 degrees Fahrenheit 2017-08-24 Heart Rate 88 bpm 2017-08-24 Respiratory Rate 20 2017-08-24 BMI 33.08 kg/m2 2017-08-24 Blood pressure systolic 128 mmHg 2017-08-24 Blood pressure diastolic 76 mmHg 2017-08-24 MEDICATIONS Medication Instructions Dosage Frequency Start Date End Date Duration Status Levemir 100 UNIT/ML Subcutaneous Once a day 40 units 24h Aug, Active Atenolol 50 mg Orally Once a day 1 tablet 24h 30 Active Detrol LA 4 MG Orally Once a day 1 capsule 24h Aug, Dec, 30 day(s) Active [place] 10-325 MG Orally 3 times a day 1 tablet as needed 8h Aug, 28 days Active Ventolin HFA 108 (90 Base) MCG/ACT Inhalation every 6 hrs 2 puffs as needed 6h Active Xanax 2 MG Orally Three times a day. must last 30 days 1 tablet 30 days Active Lipitor 40 mg Orally Once a day 1 tablet 24h Active Montelukast Sodium 10 mg Orally Once a day 1 tablet 24h 10 Oct, 2015 30 days Active Aspirin 81 MG Orally Once a day 1 tablet 24h May, 30 day(s) Active Symbicort 160-4.5 MCG/ACT Inhalation Twice a day- rinse mouth and spit after use 2 puffs every day Apr, Active Atorvastatin Calcium 40 mg 1 tablet 24h Active Nebulizer 1 as directed Apr, Active Blood Glucose Monitor 1 glucometer test blood sugar Apr, Active Levothyroxine Sodium 150 MCG Orally Once a day 1 tablet 24h 10 Oct, 2015 Active Albuterol Sulfate 1.25 MG/3ML Inhalation 4 times a day 3 ml as needed 6h Apr, Active NovoLog Flexpen 100 UNIT/ML ICD10: E11.9 3 times a day with meals 40 units Nov, Active Famotidine 20 mg Orally twice a day 1 tablet 12h March, 30 day(s ) Active Neurontin 300 MG Orally Three times a day 1 capsule 8h Dec, 30 day(s) Active Microlet Lancets - as directed 8h March, Active Levemir FlexTouch 100 UNIT/ML ICD10- E11.9 2 times a day 45 units 12h Nov, Active Cali Contour Next Test - In Vitro 3 times a day as directed 8h March, Active RESULTS Name Result Date Reference Range A1C (IN HOUSE) 2017-08-24 A1C IN HOUSE 7.5 4.3 - 5.6 % Previous A1c 7.5 Lot [id number] Exp date 05/2019 MICROALBUMIN, URINE (IN HOUSE) 2017-08-24 MICROALBUMIN normal Lot # [id number] Exp date 07/2018 Clarity clear Color yellow ALB 10 CRE 200 A:C (IN HOUSE) <30 Control normal Control Lot # Exp date PROCEDURES Procedure Date Ordered Result Body Site GLYCATED HEMOGLOBIN TEST Aug 24, 2017 MICROALBUMIN, SEMIQUANT Aug 24, 2017 INSTRUCTIONS MEDICATIONS ADMINISTERED No Known Medications [...]
--- OUTSIDE RECORDS SUMMARY | 2019-01-26 08:35 | XMS REPORT | Continuity of Care Document ---
Author Author [facility] Address Unknown Phone Unavailable Allergies Active Description Code Type Severity Reaction Onset Reported/Identified Relationship to Patient Clinical Status Yes METFORMIN MODERATE ANAPHYLACTIC SHOCK Yes Penicillins [id number] Drug Allergy Unknown N/A 01/26/2017 Yes Iodinated Contrast- Oral and IV Dye [id number] Drug Allergy Unknown N/A Yes fentanyl [id number] Drug Allergy Mild GI UPSET 01/19/2019 Medications Medication Packaging Start Date Stop Date [...] GERARDO KISER APRN 786.50 CHEST PAIN 05/09/2014 GERAROD KISER APRN 053.79 HERPES ZOSTER WITH OTHER SPECIFIED COMPLICATIONS 05/09/2014 GERARDO KISER APRN 296.90 MOOD DISORDER 05/09/2014 GERARDO KISER APRN 786.50 CHEST PAIN 05/16/2014 GERARDO KISER APRN 782.1 RASH 05/16/2014 GERARDO KISER APRN T 782.1 RASH 06/06/2014 GERARDO KISER APRN T 477.9 RHINITIS 06/06/2014 GERARDO KISER APRN 784.0 HEADACHE 01/23/2016 CHAVA SHAFER MD Ot [...] 05/14/2016 PRESTON HOLLEY MD Ot Z79.899 OTHER ASSISTED (CURRENT) DRUG THERAPY 05/14/2016 PRESTON HOLLEY MD Ot R56.9 UNSPECIFIED CONVULSIONS 05/15/2016 PRESTON HOLLEY MD Ot R56.9 UNSPECIFIED CONVULSIONS 05/15/2016 PRESTON HOLLEY MD Ot R56.9 UNSPECIFIED CONVULSIONS 05/15/2016 PRESTON HOLLEY MD Ot Z79.899 OTHER TRADE SPECIALIST (CURRENT) DRUG THERAPY 05/15/2016 RENETTA KRUSE FACC, VALENTIN FACP CCDS Ot E11.9 TYPE 2 DIABETES MELLITUS WITHOUT COMPLIC 05/15/2016 RENETTA KRUSE FACCherise, ALI FACP CCDS Ot E66.9 OBESITY, UNSPECIFIED 05/15/2016 RENETTA KRUSE FACCherise, ALI FACP CCDS Ot F31.9 BIPOLAR DISORDER, UNSPECIFIED 05/15/2016 RENETTA KRUSE FACC, VALENTIN FACP [...] FACC, ALI FACP CCDS Ot Z79.899 OTHER TRADE SPECIALIST (CURRENT) DRUG THERAPY 05/18/2016 PRESTON HOLLEY MD K Ot R56.9 UNSPECIFIED CONVULSIONS 05/28/2016 PRESTON HOLLEY MD K Ot R56.9 UNSPECIFIED CONVULSIONS 05/28/2016 PRESTON HOLLEY MD K Ot R56.9 UNSPECIFIED CONVULSIONS 05/28/2016 PRESTON HOLLEY MD K Ot Z79.899 OTHER ASSISTED (CURRENT) DRUG THERAPY 06/10/2016 RENETTA KRUSE FACC, [...] PAIN IN LEG, UNSPECIFIED 06/10/2016 RENETTA KRUSE [facility], ALI FACP CCDS Ot R07.89 OTHER CHEST PAIN 06/10/2016 RENETTA KRUSE [facility], ALI FACP CCDS Ot R60.9 EDEMA, UNSPECIFIED 06/10/2016 RENETTA KRUSE [facility], ALI FACP CCDS Ot Z68.34 BODY MASS INDEX (BMI) 34.0-34.9, ADULT 06/10/2016 RENETTA KRUSE [facility], ALI FACP CCDS Ot Z72.0 TOBACCO USE 06/10/2016 RENETTA KRUSE [facility], ALI FACP CCDS Ot Z79.899 OTHER TRADE SPECIALIST (CURRENT) DRUG THERAPY 06/30/2016 PRESTON HOLLEY MD K Ot R56.9 UNSPECIFIED CONVULSIONS 06/30/2016 PRESTON HOLLEY MD K Ot R56.9 UNSPECIFIED CONVULSIONS 07/16/2016 PRESTON HOLLEY MD K Ot R56.9 UNSPECIFIED CONVULSIONS 08/15/2016 PRESTON HOLLEY MD K Ot R56.9 UNSPECIFIED CONVULSIONS 08/15/2016 PRESTON HOLLEY MD K Ot R56.9 UNSPECIFIED CONVULSIONS 08/15/2016 PRESTON HOLLEY MD K Ot Z79.899 OTHER ASSISTED (CURRENT) DRUG THERAPY 08/15/2016 PRESTON HOLLEY MD K Ot R56.9 UNSPECIFIED CONVULSIONS 08/15/2016 KAMILLE CHAVEZ DO Ot E66.9 OBESITY, UNSPECIFIED 08/15/2016 KAMILLE CHAVEZ DO Ot J44.9 CHRONIC OBSTRUCTIVE PULMONARY DISEASE, U 08/15/2016 KAMILLE CHAVEZ DO Ot Z72.0 TOBACCO USE 09/05/2016 KAMILLE CHAVEZ DO Ot E66.9 OBESITY, UNSPECIFIED 09/05/2016 KAMILLE CHAVEZ DO Ot J44.9 CHRONIC OBSTRUCTIVE PULMONARY DISEASE, U 09/05/2016 KAMILLE CHAVEZ DO Ot Z72.0 TOBACCO USE 09/23/2016 PRESTON HOLLEY MD K Ot R56.9 UNSPECIFIED CONVULSIONS 09/23/2016 PRESTON HOLLEY MD K Ot R56.9 UNSPECIFIED CONVULSIONS 09/23/2016 PRESTON HOLLEY MD K Ot Z79.899 OTHER ASSISTED (CURRENT) DRUG THERAPY 09/23/2016 PRESTON HOLLEY MD Ot R56.9 UNSPECIFIED CONVULSIONS 09/23/2016 KAMILLE CHAVEZ DO Ot E66.9 OBESITY, UNSPECIFIED 09/23/2016 KAMILLE CHAVEZ DO Ot J44.9 CHRONIC OBSTRUCTIVE PULMONARY DISEASE, U 09/23/2016 KAMILLE CHAVEZ DO Ot Z72.0 TOBACCO USE 09/23/2016 KAMILLE CHAVEZ DO Ot E66.9 OBESITY, UNSPECIFIED 09/23/2016 KAMILLE CHAVEZ DO Ot J43.9 EMPHYSEMA, UNSPECIFIED 09/23/2016 KAMILLE CHAVEZ DO Ot Z72.0 TOBACCO USE 11/19/2016 KAMILLE CHAVEZ DO Ot E66.9 OBESITY, UNSPECIFIED 11/19/2016 KAMILLE CHAVEZ DO Ot J43.9 EMPHYSEMA, UNSPECIFIED 11/19/2016 KAMILLE CHAVEZ DO Ot Z72.0 TOBACCO USE 12/21/2016 KAMILLE CHAVEZ DO Ot R06.83 SNORING 12/22/2016 KAMILLE CHAVEZ DO Ot R06.83 SNORING 12/26/2016 SCOTTKAMILLE CROW DO Ot R06.83 SNORING 01/14/2017 PRESTON HOLLEY MD Ot R56.9 UNSPECIFIED CONVULSIONS 01/20/2017 GLORIA WALDEN MOUN[employer] INSTRUMENTS Ot J98.4 OTHER DISORDERS OF LUNG 01/20/2017 GLORIA WALDEN MOUN[employer] Ot R56.9 UNSPECIFIED CONVULSIONS 01/23/2017 PRESTON HOLLEY MD Ot R56.9 UNSPECIFIED CONVULSIONS 01/23/2017 GALA TALLEY [employer] Ot E11.9 TYPE 2 DIABETES MELLITUS WITHOUT COMPLIC 01/23/2017 GALA TALLEY [employer] Ot I10 ESSENTIAL (PRIMARY) HYPERTENSION 01/23/2017 GALA TALLEY APRN Ot J44.9 CHRONIC OBSTRUCTIVE PULMONARY DISEASE, U 01/23/2017 GALA TALLEY APRN Ot K57.32 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 01/23/2017 GALA TALLEY [employer] Ot R19.7 DIARRHEA, UNSPECIFIED 01/23/2017 GALA TALLEY APRN Ot Z79.84 TRADE SPECIALIST (CURRENT) USE OF ORAL HYPOGLYC 01/23/2017 GALA TALLEY [employer] Ot Z79.899 OTHER ASSISTED (CURRENT) DRUG THERAPY 01/25/2017 GALA TALLEY [employer] Ot E11.9 TYPE 2 DIABETES MELLITUS WITHOUT COMPLIC 01/25/2017 GALA TALLEY [employer] Ot I10 ESSENTIAL (PRIMARY) HYPERTENSION 01/25/2017 GALA TALLEY [employer] Ot J44.9 CHRONIC OBSTRUCTIVE PULMONARY DISEASE, U 01/25/2017 GALA TALLYE [employer] Ot K57.32 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 01/25/2017 GALA TALLEY [employer]UM[employer] Ot R19.7 DIARRHEA, UNSPECIFIED 01/25/2017 GALA TALLEY [employer] Ot Z79.84 TRADE SPECIALIST (CURRENT) USE OF ORAL HYPOGLYC 01/25/2017 GALA TALLEY [employer] Ot Z79.899 OTHER TRADE SPECIALIST (CURRENT) DRUG THERAPY 01/27/2017 STIVEN RAYMOND MD [...] ABS 01/27/2017 STIVEN RAYMOND MD Ot Z79.84 ASSISTED (CURRENT) USE OF ORAL HYPOGLYC 01/27/2017 STIVEN [...] LG INT W/O PERFORATION OR ABS 01/27/2017 SEGUNDO KRUSE, STIVEN Samayoa Ot Z79.84 TRADE SPECIALIST (CURRENT) USE OF ORAL HYPOGLYC 01/29/2017 GALA TALLEY APRN Ot E11.9 TYPE 2 DIABETES MELLITUS WITHOUT COMPLIC 01/29/2017 GALA TALLEY [employer]OUN[employer]UM[employer] Ot I10 ESSENTIAL (PRIMARY) HYPERTENSION 01/29/2017 GALA TALLEY APRN Ot J44.9 CHRONIC OBSTRUCTIVE PULMONARY DISEASE, U 01/29/2017 GALA TALLEY APRN Ot K57.32 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 01/29/2017 GALA TALLEY APRN Ot R19.7 DIARRHEA, UNSPECIFIED 01/29/2017 GALA TALLEY APRN Ot Z79.84 ASSISTED (CURRENT) USE OF ORAL HYPOGLYC 01/29/2017 GALA TALLEY APRN Ot Z79.899 OTHER TRADE SPECIALIST (CURRENT) DRUG THERAPY 02/12/2017 GLORIA WALDEN APRN [...] UNSPECIFIED 03/21/2017 GALA TALLEY APRN Ot Z79.4 ASSISTED (CURRENT) USE OF INSULIN 03/21/2017 GALA TALLEY APRN Ot Z79.82 TRADE SPECIALIST (CURRENT) USE OF ASPIRIN 03/21/2017 GALA TALLEY APRN Ot Z79.899 OTHER ASSISTED (CURRENT) DRUG THERAPY 03/23/2017 GALA TALLEY APRN Ot E11.9 TYPE 2 DIABETES MELLITUS WITHOUT COMPLIC 03/23/2017 GALA TALLEY [employer] Ot F17.210 NICOTINE DEPENDENCE, CIGARETTES, UNCOMPL 03/23/2017 GALA TALLEY [employer] Ot I10 ESSENTIAL (PRIMARY) HYPERTENSION 03/23/2017 GALA TALLEY APRN Ot J44.9 CHRONIC OBSTRUCTIVE PULMONARY DISEASE, U 03/23/2017 GALA TALLEY APRN Ot K52.9 NONINFECTIVE GASTROENTERITIS AND COLITIS 03/23/2017 GALA TALLEY APRN Ot K57.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 03/23/2017 GALA TALLEY APRN Ot R19.7 DIARRHEA, UNSPECIFIED 03/23/2017 GALA TALLEY APRN Ot Z79.4 TRADE SPECIALIST (CURRENT) USE OF INSULIN 03/23/2017 GALA TALLEY APRN Ot Z79.82 TRADE SPECIALIST (CURRENT) USE OF ASPIRIN 03/23/2017 GALA TALLEY APRN Ot Z79.899 OTHER TRADE SPECIALIST (CURRENT) DRUG THERAPY 03/24/2017 GALA TALLEY APRN Ot E11.9 TYPE 2 DIABETES MELLITUS WITHOUT COMPLIC 03/24/2017 GALA TALLEY APRN Ot I10 ESSENTIAL (PRIMARY) HYPERTENSION 03/24/2017 GALA TALLEY APRN Ot J44.9 CHRONIC OBSTRUCTIVE PULMONARY DISEASE, U 03/24/2017 GALA TALLEY APRN Ot R07.9 CHEST PAIN, UNSPECIFIED 03/24/2017 GALA TALLEY APRN Ot Z79.4 TRADE SPECIALIST (CURRENT) USE OF INSULIN 03/24/2017 GALA TALLEY APRN Ot Z79.82 TRADE SPECIALIST (CURRENT) USE OF ASPIRIN 03/24/2017 GALA TALLEY [employer] Ot Z79.899 OTHER ASSISTED (CURRENT) DRUG THERAPY 03/26/2017 GALA TALLEY APRN Ot E11.9 TYPE 2 DIABETES MELLITUS WITHOUT COMPLIC 03/26/2017 GALA TALLEY [employer] Ot I10 ESSENTIAL (PRIMARY) HYPERTENSION 03/26/2017 GALA TALLEY APRN Ot J44.9 CHRONIC OBSTRUCTIVE PULMONARY DISEASE, U 03/26/2017 GALA TALLEY APRN Ot R07.9 CHEST PAIN, UNSPECIFIED 03/26/2017 GALA TALLEY [employer] Ot Z79.4 ASSISTED (CURRENT) USE OF INSULIN 03/26/2017 GALA TALLEY APRN Ot Z79.82 ASSISTED (CURRENT) USE OF ASPIRIN 03/26/2017 GALA TALLEY APRN Ot Z79.899 OTHER ASSISTED (CURRENT) DRUG THERAPY 03/27/2017 GALA TALLEY [employer] Ot E11.9 TYPE 2 DIABETES MELLITUS WITHOUT COMPLIC 03/27/2017 GALA TALLEY [employer] Ot I10 ESSENTIAL (PRIMARY) HYPERTENSION 03/27/2017 GALA TALLEY APRN Ot J44.9 CHRONIC OBSTRUCTIVE PULMONARY DISEASE, U 03/27/2017 GALA TALLEY [employer] Ot R07.9 CHEST PAIN, UNSPECIFIED 03/27/2017 GALA TALLEY APRN Ot Z79.4 TRADE SPECIALIST (CURRENT) USE OF INSULIN 03/27/2017 GALA TALLEY APRN Ot Z79.82 TRADE SPECIALIST (CURRENT) USE OF ASPIRIN 03/27/2017 GALA TALLEY APRN Ot Z79.899 OTHER ASSISTED (CURRENT) DRUG THERAPY 03/28/2017 TYLER CHUNG MD [...] HYPERHIDROSIS 03/28/2017 TYLER CHUNG MD Ot Z79.82 TRADE SPECIALIST (CURRENT) USE OF ASPIRIN 03/28/2017 TYLER CHUNG MD Ot Z79.899 OTHER TRADE SPECIALIST (CURRENT) DRUG THERAPY 03/30/2017 DEVI DO JOSSELIN K Ot E11.9 TYPE 2 DIABETES MELLITUS WITHOUT COMPLIC 03/30/2017 DEVI DO, JOSSELIN K Ot F17.210 NICOTINE DEPENDENCE, CIGARETTES, UNCOMPL 03/30/2017 DEVI DO JOSSELIN K Ot F41.9 ANXIETY [...] 03/30/2017 DEVI DO, JOSSELIN K Ot Z79.4 TRADE SPECIALIST (CURRENT) USE OF INSULIN 03/30/2017 DEVI DO, JOSSELIN K Ot Z79.82 ASSISTED (CURRENT) USE OF ASPIRIN 04/02/2017 GALA TALLEY APRN Ot E11.9 TYPE 2 DIABETES MELLITUS WITHOUT COMPLIC 04/02/2017 GALA TALLEY APRN Ot F17.210 NICOTINE DEPENDENCE, CIGARETTES, UNCOMPL 04/02/2017 GALA TALLEY APRN Ot I10 ESSENTIAL (PRIMARY) HYPERTENSION 04/02/2017 GALA TALLEY APRN, Ot J44.9 CHRONIC OBSTRUCTIVE PULMONARY DISEASE, U 04/02/2017 GALA TALLEY APRN Ot K52.9 NONINFECTIVE GASTROENTERITIS AND COLITIS 04/02/2017 GALA TALLEY APRN Ot K57.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 04/02/2017 GALA TALLEY APRN Ot R19.7 DIARRHEA, UNSPECIFIED 04/02/2017 GALA TALLEY APRN Ot Z79.4 TRADE SPECIALIST (CURRENT) USE OF INSULIN 04/02/2017 GALA TALLEY APRN Ot Z79.82 TRADE SPECIALIST (CURRENT) USE OF ASPIRIN 04/02/2017 GALA TALLEY APRN Ot Z79.899 OTHER ASSISTED (CURRENT) DRUG THERAPY 04/02/2017 DEVI DO, JOSSELIN [...] 04/02/2017 DEVI DO, JOSSELIN K Ot Z79.4 ASSISTED (CURRENT) USE OF INSULIN 04/02/2017 RONEN QUINONEZ DOA K Ot Z79.82 ASSISTED (CURRENT) USE OF ASPIRIN 04/03/2017 TYLER CHUNG [...] HYPERHIDROSIS 04/03/2017 TYLER CHUNG MD Ot Z79.82 ASSISTED (CURRENT) USE OF ASPIRIN 04/03/2017 TYLER CHUNG MD Ot Z79.899 OTHER TRADE SPECIALIST (CURRENT) DRUG THERAPY 04/19/2017 GLORIA WALDEN APRN [...] HYPERHIDROSIS 06/27/2017 TYLER CHUNG MD Ot Z79.82 ASSISTED (CURRENT) USE OF ASPIRIN 06/27/2017 TYLER CHUNG MD Ot Z79.899 OTHER TRADE SPECIALIST (CURRENT) DRUG THERAPY 07/01/2017 TYLER CHUNG MD [...] HYPERHIDROSIS 07/01/2017 TYLER CHUNG MD Ot Z79.82 TRADE SPECIALIST (CURRENT) USE OF ASPIRIN 07/01/2017 TYLER CHUNG MD Ot Z79.899 OTHER ASSISTED (CURRENT) DRUG THERAPY 01/24/2018 PRESTON HOLLEY MD Ot R56.9 UNSPECIFIED CONVULSIONS 01/24/2018 PRESTON HOLLEY MD Ot R56.9 UNSPECIFIED CONVULSIONS 01/24/2018 PRESTON HOLLEY MD Ot Z79.899 OTHER ASSISTED (CURRENT) DRUG THERAPY 01/24/2018 PRESTON HOLLEY MD [...] APRN Ot R56.9 UNSPECIFIED CONVULSIONS 01/24/2018 JACKY CORONEL Ot E03.9 HYPOTHYROIDISM, UNSPECIFIED 01/24/2018 JACKY CORONEL [...] DIARRHEA, UNSPECIFIED 01/24/2018 JACKY CORONEL Ot Z79.4 TRADE SPECIALIST (CURRENT) USE OF INSULIN 01/24/2018 JACKY CORONEL Ot Z79.82 ASSISTED (CURRENT) USE OF ASPIRIN 01/24/2018 JACKY CORONEL [...] 01/24/2018 PRESTON HOLLEY MD Ot Z79.899 OTHER ASSISTED (CURRENT) DRUG THERAPY 01/24/2018 PRESTON HOLLEY MD [...] DIARRHEA, UNSPECIFIED 01/26/2018 JACKY CORONEL Ot Z79.4 TRADE SPECIALIST (CURRENT) USE OF INSULIN 01/26/2018 JACKY CORONEL Ot Z79.82 TRADE SPECIALIST (CURRENT) USE OF ASPIRIN 01/26/2018 JACKY CORONEL [...] K21.0 GASTRO-ESOPHAGEAL REFLUX DISEASE WITH ES 02/02/2018 MLALY BRITO DO Ot K29.70 GASTRITIS, UNSPECIFIED, WITHOUT BLEEDING 02/02/2018 MALLY BRITO DO Ot K44.9 DIAPHRAGMATIC HERNIA WITHOUT OBSTRUCTION 02/02/2018 MALLY BRITO DO Ot Z79.4 ASSISTED (CURRENT) USE OF INSULIN 02/02/2018 MALLY BRITO DO Ot Z79.82 ASSISTED (CURRENT) USE OF ASPIRIN 02/02/2018 MALLY BRITO DO Ot Z79.899 OTHER ASSISTED (CURRENT) DRUG THERAPY 02/02/2018 MALLY BRITO DO [...] OBSTRUCTION 02/04/2018 MALLY BRITO DO Ot Z79.4 TRADE SPECIALIST (CURRENT) USE OF INSULIN 02/04/2018 MALLY BRITO DO Ot Z79.82 ASSISTED (CURRENT) USE OF ASPIRIN 02/04/2018 MALLY BRITO DO Ot Z79.899 OTHER TRADE SPECIALIST (CURRENT) DRUG THERAPY 02/04/2018 MALLY BRITO DO Ot Z80.0 FAMILY HISTORY OF MALIGNANT NEOPLASM OF 02/04/2018 MALLY BRITO DO Ot Z88.0 ALLERGY STATUS TO PENICILLIN 02/04/2018 MALLY BRITO DO Ot Z88.5 ALLERGY STATUS TO NARCOTIC AGENT STATUS 02/10/2018 PRESTON HOLLEY MD Ot R56.9 UNSPECIFIED CONVULSIONS 02/10/2018 PRESTON HOLLEY MD Ot R56.9 UNSPECIFIED CONVULSIONS 02/10/2018 PRESTON HOLLEY MD Ot Z79.899 OTHER TRADE SPECIALIST (CURRENT) DRUG THERAPY 02/10/2018 PRESTON HOLLEY MD Ot R56.9 UNSPECIFIED CONVULSIONS 02/10/2018 KAMILLE CHAVEZ DO Ot E66.9 OBESITY, UNSPECIFIED 02/10/2018 KAMILLE CHAVEZ DO, Ot J44.9 CHRONIC OBSTRUCTIVE PULMONARY DISEASE, U 02/10/2018 KAMILLE CHAVEZ DO Ot Z72.0 TOBACCO USE 02/10/2018 KAMILLE CHAVEZ DO, Ot E66.9 OBESITY, UNSPECIFIED 02/10/2018 KAMILLE CHAVEZ DO, Ot J43.9 EMPHYSEMA, UNSPECIFIED 02/10/2018 KAMILLE CHAVEZ DO Ot Z72.0 TOBACCO USE 02/10/2018 PRESTON HOLLEY MD Ot R56.9 UNSPECIFIED CONVULSIONS 02/10/2018 GLORIA WALDEN APRN Ot J98.4 OTHER DISORDERS OF LUNG 02/10/2018 GLORIA WALDEN APRN Ot R56.9 UNSPECIFIED CONVULSIONS 02/10/2018 PRESTON HOLLEY MD Ot R56.9 UNSPECIFIED CONVULSIONS 02/10/2018 PRESTON HOLLEY MD Ot R56.9 UNSPECIFIED CONVULSIONS 02/10/2018 PRESTON HOLLEY MD Ot Z79.899 OTHER ASSISTED (CURRENT) DRUG THERAPY 02/10/2018 PRESTON HOLLEY MD Ot R56.9 UNSPECIFIED CONVULSIONS 02/10/2018 KAMILLE CHAVEZ DO Ot E66.9 OBESITY, UNSPECIFIED 02/10/2018 KAMILLE CHAVEZ DO Ot J44.9 CHRONIC OBSTRUCTIVE PULMONARY DISEASE, U 02/10/2018 KAMILLE CHAVEZ DO Ot Z72.0 TOBACCO USE 02/10/2018 KAMILLE CHAVEZ DO Ot E66.9 OBESITY, UNSPECIFIED 02/10/2018 KAMILLE CHAVEZ DO Ot J43.9 EMPHYSEMA, UNSPECIFIED 02/10/2018 KAMILLE CHAVEZ DO M Ot Z72.0 TOBACCO USE 02/10/2018 PRESTON HOLLEY MD Ot R56.9 UNSPECIFIED CONVULSIONS 02/10/2018 GLORIA WALDEN APRN Ot J98.4 OTHER DISORDERS OF LUNG 02/10/2018 GLORIA WALDEN APRN Ot R56.9 UNSPECIFIED CONVULSIONS 02/24/2018 KARTHIK WARD COUPLES THERAPIST Ot E78.5 HYPERLIPIDEMIA, UNSPECIFIED 02/24/2018 KARTHIK WARD COUPLES THERAPIST Ot I10 ESSENTIAL (PRIMARY) HYPERTENSION 02/24/2018 KARTHIK WARD COUPLES THERAPIST Ot R06.09 OTHER FORMS OF DYSPNEA 02/24/2018 KARTHIK WARD COUPLES THERAPIST Ot R07.9 CHEST PAIN, UNSPECIFIED 02/26/2018 MALLY BRITO DO Ot R19.7 DIARRHEA, UNSPECIFIED 03/09/2018 GLORIA WALDEN APRN Ot J45.909 UNSPECIFIED ASTHMA, UNCOMPLICATED 03/09/2018 GLORIA WALDEN [employer] Ot Z72.0 TOBACCO USE 03/09/2018 BRITO DO, MALLY D Ot R19.7 DIARRHEA, UNSPECIFIED 03/14/2018 GLORIA WALDEN APRN Ot J45.909 UNSPECIFIED ASTHMA, UNCOMPLICATED 03/14/2018 GLORIA WALDEN APRN Ot Z72.0 TOBACCO USE 03/15/2018 PRESTON HOLLEY MD Ot R56.9 UNSPECIFIED CONVULSIONS 03/15/2018 PRESTON HOLLEY MD Ot R56.9 UNSPECIFIED CONVULSIONS 03/15/2018 PRESTON HOLLEY MD Ot Z79.899 OTHER ASSISTED (CURRENT) DRUG THERAPY 03/15/2018 PRESTON HOLLEY MD [...] Ot R56.9 UNSPECIFIED CONVULSIONS 03/15/2018 KARTHIK WARD COUPLES THERAPIST Ot E78.5 HYPERLIPIDEMIA, UNSPECIFIED 03/15/2018 KARTHIK WARD COUPLES THERAPIST Ot I10 ESSENTIAL (PRIMARY) HYPERTENSION 03/15/2018 KARTHIK WARD COUPLES THERAPIST Ot R06.09 OTHER FORMS OF DYSPNEA 03/15/2018 KARTHIK WARD COUPLES THERAPIST Ot R07.9 CHEST PAIN, UNSPECIFIED 03/15/2018 BRITO DO, MALLY D Ot R19.7 DIARRHEA, UNSPECIFIED 03/15/2018 GLORIA WALDEN APRN Ot J45.909 UNSPECIFIED ASTHMA, UNCOMPLICATED 03/15/2018 GLORIA WALDEN APRN Ot Z72.0 TOBACCO USE 03/16/2018 KARTHIK WARD COUPLES THERAPIST Ot E78.5 HYPERLIPIDEMIA, UNSPECIFIED 03/16/2018 BAIKARTHIK REYNOSO COUPLES THERAPIST Ot I10 ESSENTIAL (PRIMARY) HYPERTENSION 03/16/2018 BAIKARTHIK REYNOSO COUPLES THERAPIST Ot R06.09 OTHER FORMS OF DYSPNEA 03/16/2018 BAIKARTHIK REYNOSO COUPLES THERAPIST Ot R07.9 CHEST PAIN, UNSPECIFIED 03/17/2018 DEVI DO, JOSSELIN K Ot E03.9 HYPOTHYROIDISM, UNSPECIFIED 03/17/2018 DEVI DO, JOSSELIN K Ot E11.65 TYPE 2 DIABETES MELLITUS WITH HYPERGLYCE 03/17/2018 DEVI DO, JOSSELIN K Ot E78.00 PURE HYPERCHOLESTEROLEMIA, UNSPECIFIED 03/17/2018 DEVI DO, JOSSELIN K Ot F17.210 NICOTINE DEPENDENCE, CIGARETTES, UNCOMPL 03/17/2018 DEVI DO JOSSELIN K Ot F31.9 BIPOLAR DISORDER, UNSPECIFIED 03/17/2018 DEVI DO, JOSSELIN K Ot F41.9 ANXIETY DISORDER, UNSPECIFIED 03/17/2018 DEVI DO, JOSSELIN K Ot I10 ESSENTIAL (PRIMARY) HYPERTENSION 03/17/2018 DEVI DO JOSSELIN K Ot J43.9 EMPHYSEMA, UNSPECIFIED 03/17/2018 DEVI DO, JOSSELIN K Ot K21.9 GASTRO-ESOPHAGEAL REFLUX DISEASE WITHOUT 03/17/2018 DEVI JOSSELIN K Ot R73.9 HYPERGLYCEMIA, UNSPECIFIED 03/17/2018 DEVI DO, JOSSELIN K Ot Z79.4 ASSISTED (CURRENT) USE OF INSULIN 03/17/2018 DEVI JOSSELIN K Ot Z79.51 TRADE SPECIALIST (CURRENT) USE OF INHALED STERO 03/17/2018 DEVI JOSSELIN K Ot Z79.82 TRADE SPECIALIST (CURRENT) USE OF ASPIRIN 03/17/2018 DEVI JOSSELIN K Ot Z82.49 FAMILY HX OF ISCHEM HEART DIS AND OTH DI 03/17/2018 DEVI DO JOSSELIN K Ot Z87.19 PERSONAL HISTORY OF OTHER DISEASES OF TH 03/17/2018 DEVI FOREMAN JOSSELIN K Ot Z88.0 ALLERGY STATUS TO PENICILLIN 03/17/2018 DEVI JOSSELIN K Ot Z90.49 ACQUIRED ABSENCE OF OTHER SPECIFIED PART 03/17/2018 DEVI JOSSELIN K Ot Z90.710 ACQUIRED ABSENCE OF BOTH CERVIX AND UTER 03/17/2018 DEVI JOSSELIN K Ot Z90.89 ACQUIRED ABSENCE OF OTHER ORGANS 03/17/2018 DEVI JOSSELIN K Ot Z91.041 RADIOGRAPHIC DYE ALLERGY STATUS 03/20/2018 GLORIA WALDEN APRN Ot J45.909 UNSPECIFIED ASTHMA, UNCOMPLICATED 03/22/2018 DEVI JOSSELIN K Ot E03.9 HYPOTHYROIDISM, UNSPECIFIED 03/22/2018 DEVI , JOSSELIN K Ot E11.65 TYPE 2 DIABETES MELLITUS WITH HYPERGLYCE 03/22/2018 DEVI DO JOSSELIN K Ot E78.00 PURE HYPERCHOLESTEROLEMIA, UNSPECIFIED 03/22/2018 DEVI DO, JOSSELIN K Ot F17.210 NICOTINE DEPENDENCE, CIGARETTES, UNCOMPL 03/22/2018 DEVI JOSSELIN K Ot F31.9 BIPOLAR DISORDER, UNSPECIFIED 03/22/2018 DEVI JOSSELIN K Ot F41.9 ANXIETY DISORDER, UNSPECIFIED 03/22/2018 DEVI DO JOSSELIN K Ot I10 ESSENTIAL (PRIMARY) HYPERTENSION 03/22/2018 DEVI JOSSELIN K Ot J43.9 EMPHYSEMA, UNSPECIFIED 03/22/2018 DEVI , JOSSELIN K Ot K21.9 GASTRO-ESOPHAGEAL REFLUX DISEASE WITHOUT 03/22/2018 DEVI JOSSELIN K Ot R73.9 HYPERGLYCEMIA, UNSPECIFIED 03/22/2018 DEVI JOSSELIN K Ot Z79.4 ASSISTED (CURRENT) USE OF INSULIN 03/22/2018 DEVI JOSSELIN K Ot Z79.51 ASSISTED (CURRENT) USE OF INHALED STERO 03/22/2018 DEVI JOSSELIN K Ot Z79.82 ASSISTED (CURRENT) USE OF ASPIRIN 03/22/2018 DEVI JOSSELIN K Ot Z82.49 FAMILY HX OF ISCHEM HEART DIS AND OTH DI 03/22/2018 DEVI FOREMAN JOSSELIN K Ot Z87.19 PERSONAL HISTORY OF OTHER DISEASES OF TH 03/22/2018 DEVI DO JOSSELIN K Ot Z88.0 ALLERGY STATUS TO PENICILLIN 03/22/2018 DEVI JOSSELIN K Ot Z90.49 ACQUIRED ABSENCE OF OTHER SPECIFIED PART 03/22/2018 DEVI JOSSELIN K Ot Z90.710 ACQUIRED ABSENCE OF BOTH CERVIX AND UTER 03/22/2018 JOSSELIN QUINONEZ DO Ot Z90.89 ACQUIRED ABSENCE OF OTHER ORGANS 03/22/2018 JOSSELIN QUINONEZ DO Ot Z91.041 RADIOGRAPHIC DYE ALLERGY STATUS 03/22/2018 GLORIA WALDEN MOUNTER [employer] IN[employer]UMENTS Ot J45.909 UNSPECIFIED ASTHMA, UNCOMPLICATED 03/22/2018 GLORIA WALDEN MOUNTER [employer] INSTRUMENTS Ot J45.909 UNSPECIFIED ASTHMA, UNCOMPLICATED 03/24/2018 GLORIA WALDEN APRN Ot R91.8 OTHER NONSPECIFIC ABNORMAL FINDING OF GUSTAVO 03/24/2018 GLORIA WALDEN APRN Ot Z72.0 TOBACCO USE 03/31/2018 GLORIA WALDEN APRN Ot J45.909 UNSPECIFIED ASTHMA, UNCOMPLICATED 03/31/2018 GLORIA WALDEN APRN Ot Z72.0 TOBACCO USE 03/31/2018 VENTURA KRUSE, BUSHRA Navas Ot E03.9 HYPOTHYROIDISM, UNSPECIFIED 03/31/2018 BUSHRA WHITEHEAD MD Ot E11.9 TYPE 2 DIABETES MELLITUS WITHOUT COMPLIC 03/31/2018 BUSHRA WHITEHEAD MD Ot E78.00 PURE HYPERCHOLESTEROLEMIA, UNSPECIFIED 03/31/2018 BUSHRA WHITEHEAD MD Ot F17.210 NICOTINE DEPENDENCE, CIGARETTES, UNCOMPL 03/31/2018 BUSHRA WHITEHEAD MD Ot F31.9 BIPOLAR DISORDER, UNSPECIFIED 03/31/2018 BUSHRA WHITEHEAD MD Ot F41.9 ANXIETY DISORDER, UNSPECIFIED 03/31/2018 BUSHRA WHITEHEAD MD Ot I10 ESSENTIAL (PRIMARY) HYPERTENSION 03/31/2018 BUSHRA WHITEHEAD MD Ot J20.9 ACUTE BRONCHITIS, UNSPECIFIED 03/31/2018 BUSHRA WHITEHEAD MD Ot J44.0 CHRONIC OBSTRUCTIVE PULMON DISEASE W ACU 03/31/2018 BUSHRA WHITEHEAD MD Ot K21.9 GASTRO-ESOPHAGEAL REFLUX DISEASE WITHOUT 03/31/2018 BUSHRA WHITEHEAD MD Ot R06.02 SHORTNESS OF BREATH 03/31/2018 BUSHRA WHITEHEAD MD Ot R11.2 NAUSEA WITH VOMITING, UNSPECIFIED 03/31/2018 BUSHRA WHITEHEAD MD Ot Z79.4 ASSISTED (CURRENT) USE OF INSULIN 03/31/2018 BUSHRA WHITEHEAD MD, Ot Z79.51 TRADE SPECIALIST (CURRENT) USE OF INHALED STERO 03/31/2018 BUSHRA WHITEHEAD MD, Ot Z79.52 TRADE SPECIALIST (CURRENT) USE OF SYSTEMIC STER 03/31/2018 BUSHRA WHITEHEAD MD, Ot Z79.82 TRADE SPECIALIST (CURRENT) USE OF ASPIRIN 03/31/2018 BUSHRA WHITEHEAD MD, Ot Z82.49 FAMILY HX OF ISCHEM HEART DIS AND OTH DI 03/31/2018 BUSHRA WHITEHEAD MD, Ot Z87.19 PERSONAL HISTORY OF OTHER DISEASES OF TH 03/31/2018 BUSHRA WHITEHEAD MD, Ot Z88.0 ALLERGY STATUS TO PENICILLIN 03/31/2018 BUSHRA WHITEHEAD MD, Ot Z90.49 ACQUIRED ABSENCE OF OTHER SPECIFIED PART 03/31/2018 BUSHRA WHITEHEAD MD, Ot Z90.710 ACQUIRED ABSENCE OF BOTH CERVIX AND UTER 03/31/2018 BUSHRA WHITEHEAD MD, Ot Z90.89 ACQUIRED ABSENCE OF OTHER ORGANS 03/31/2018 BUSHRA WHITEHEAD MD, Ot Z91.041 RADIOGRAPHIC DYE ALLERGY STATUS 04/02/2018 BUSHRA WHITEHEAD MD, Ot E03.9 HYPOTHYROIDISM, UNSPECIFIED 04/02/2018 BUSHRA WHITEHEAD MD, Ot E11.9 TYPE 2 DIABETES MELLITUS WITHOUT COMPLIC 04/02/2018 BUSHRA WHITEHEAD MD, Ot E78.00 PURE HYPERCHOLESTEROLEMIA, UNSPECIFIED 04/02/2018 BUSHRA WHITEHEAD MD, Ot F17.210 NICOTINE DEPENDENCE, CIGARETTES, UNCOMPL 04/02/2018 BUSHRA WHITEHEAD MD, Ot F31.9 BIPOLAR DISORDER, UNSPECIFIED 04/02/2018 BUSHRA WHITEHEAD MD, Ot F41.9 ANXIETY DISORDER, UNSPECIFIED 04/02/2018 BUSHRA WHITEHEAD MD, Ot I10 ESSENTIAL (PRIMARY) HYPERTENSION 04/02/2018 BUSHRA WHITEHEAD MD, Ot J20.9 ACUTE BRONCHITIS, UNSPECIFIED 04/02/2018 BUSHRA WHITEHEAD MD, Ot J44.0 CHRONIC OBSTRUCTIVE PULMON DISEASE W ACU 04/02/2018 BUSHRA WHITEHEAD MD, Ot K21.9 GASTRO-ESOPHAGEAL REFLUX DISEASE WITHOUT 04/02/2018 BUSHRA WHITEHEAD MD, Ot R06.02 SHORTNESS OF BREATH 04/02/2018 BUSHRA WHITEHEAD MD, Ot R11.2 NAUSEA WITH VOMITING, UNSPECIFIED 04/02/2018 BUSHRA WHITEHEAD MD, Ot Z79.4 TRADE SPECIALIST (CURRENT) USE OF INSULIN 04/02/2018 BUSHRA WHITEHEAD MD, Ot Z79.51 ASSISTED (CURRENT) USE OF INHALED STERO 04/02/2018 BUSHRA WHITEHEAD MD, Ot Z79.52 TRADE SPECIALIST (CURRENT) USE OF SYSTEMIC STER 04/02/2018 BUSHRA WHITEHEAD MD, Ot Z79.82 TRADE SPECIALIST (CURRENT) USE OF ASPIRIN 04/02/2018 BUSHRA WHITEHEAD MD, Ot Z82.49 FAMILY HX OF ISCHEM HEART DIS AND OTH DI 04/02/2018 BUSHRA WHITEHEAD MD, Ot Z87.19 PERSONAL HISTORY OF OTHER DISEASES OF 04/02/2018 BUSHRA WHITEHEAD MD, Ot Z88.0 ALLERGY STATUS TO PENICILLIN 04/02/2018 BUSHRA WHITEHEAD MD, Ot Z90.49 ACQUIRED ABSENCE OF OTHER SPECIFIED PART 04/02/2018 BUSHRA WHITEHEAD MD, Ot Z90.710 ACQUIRED ABSENCE OF BOTH CERVIX AND UTER 04/02/2018 BUSHRA WHITEHEAD MD Ot Z90.89 ACQUIRED ABSENCE OF OTHER ORGANS 04/02/2018 BUSHRA WHITEHEAD MD, Ot Z91.041 RADIOGRAPHIC DYE ALLERGY STATUS 04/20/2018 GLORIA WALDEN APRN Ot R91.8 OTHER NONSPECIFIC ABNORMAL FINDING OF GUSTAVO 04/20/2018 GLORIA WALDEN APRN Ot Z72.0 TOBACCO USE 06/21/2018 PRESTON HOLLEY MD Ot R56.9 UNSPECIFIED CONVULSIONS 06/21/2018 PRESTON HOLLEY MD Ot R56.9 UNSPECIFIED CONVULSIONS 06/21/2018 PRESTON HOLLEY MD Ot Z79.899 OTHER TRADE SPECIALIST (CURRENT) DRUG THERAPY 06/21/2018 PRESTON HOLLEY MD Ot R56.9 UNSPECIFIED CONVULSIONS 06/21/2018 KAMILLE CHAVEZ DO Ot E66.9 OBESITY, UNSPECIFIED 06/21/2018 KAMILLE CHAVEZ DO Ot J44.9 CHRONIC OBSTRUCTIVE PULMONARY DISEASE, U 06/21/2018 KAMILLE CHAVEZ DO Ot Z72.0 TOBACCO USE 06/21/2018 KAMILLE CHAVEZ DO Ot E66.9 OBESITY, UNSPECIFIED 06/21/2018 KAMILLE CHAVEZ DO Ot J43.9 EMPHYSEMA, UNSPECIFIED 06/21/2018 KAMILLE CHAVEZ DO Ot Z72.0 TOBACCO USE 06/21/2018 PRESTON HOLLEY MD Ot R56.9 UNSPECIFIED CONVULSIONS 06/21/2018 GLORIA WALDEN [employer] Ot J98.4 OTHER DISORDERS OF LUNG 06/21/2018 GLORIA WALDEN [employer] Ot R56.9 UNSPECIFIED CONVULSIONS 06/21/2018 KARTHIK WARD COUPLES THERAPIST Ot E78.5 HYPERLIPIDEMIA, UNSPECIFIED 06/21/2018 KARTHIK WARD L COUPLES THERAPIST Ot I10 ESSENTIAL (PRIMARY) HYPERTENSION 06/21/2018 KARTHIK WARD COUPLES THERAPIST Ot R06.09 OTHER FORMS OF DYSPNEA 06/21/2018 KARTHIK WARD COUPLES THERAPIST Ot R07.9 CHEST PAIN, UNSPECIFIED 06/21/2018 MALLY BRITO DO Ot R19.7 DIARRHEA, UNSPECIFIED 06/21/2018 GLORIA WALDEN [employer] Ot J45.909 UNSPECIFIED ASTHMA, UNCOMPLICATED 06/21/2018 GLORIA WALDEN [employer] Ot Z72.0 TOBACCO USE 06/21/2018 GLORIA WALDEN [employer] Ot R91.8 OTHER NONSPECIFIC ABNORMAL FINDING OF GUSTAVO 06/21/2018 GLORIA WALDEN [employer] Ot Z72.0 TOBACCO USE 06/22/2018 GLORIA WALDEN [employer] Ot R91.8 OTHER NONSPECIFIC ABNORMAL FINDING OF GUSTAVO 07/02/2018 GLORIA WALDEN [employer] Ot R91.8 OTHER NONSPECIFIC ABNORMAL FINDING OF GUSTAVO 07/05/2018 KAMILLE CHAVEZ DO Ot Z01.818 ENCOUNTER FOR OTHER PREPROCEDURAL EXAMIN 07/20/2018 PRESTON HOLLEY MD Ot R56.9 UNSPECIFIED CONVULSIONS 07/20/2018 PRESTON HOLLEY MD Ot R56.9 UNSPECIFIED CONVULSIONS 07/20/2018 PRESTON HOLLEY MD Ot Z79.899 OTHER TRADE SPECIALIST (CURRENT) DRUG THERAPY 07/20/2018 PRESTON HOLLEY MD Ot R56.9 UNSPECIFIED CONVULSIONS 07/20/2018 KAMILLE CHAVEZ DO Ot E66.9 OBESITY, UNSPECIFIED 07/20/2018 KAMILLE CHAVEZ DO Ot J44.9 CHRONIC OBSTRUCTIVE PULMONARY DISEASE, U 07/20/2018 KAMILLE CHAVEZ DO Ot Z72.0 TOBACCO USE 07/20/2018 KAMILLE CHAVEZ DO Ot E66.9 OBESITY, UNSPECIFIED 07/20/2018 KAMILLE CHAVEZ DO Ot J43.9 EMPHYSEMA, UNSPECIFIED 07/20/2018 KAMILLE CHAVEZ DO Ot Z72.0 TOBACCO USE 07/20/2018 PRESTON HOLLEY MD Ot R56.9 UNSPECIFIED CONVULSIONS 07/20/2018 GLORIA WALDEN [employer] Ot J98.4 OTHER DISORDERS OF LUNG 07/20/2018 GLORIA WALDEN [employer] Ot R56.9 UNSPECIFIED CONVULSIONS 07/20/2018 KARTHIK WARD COUPLES THERAPIST Ot E78.5 HYPERLIPIDEMIA, UNSPECIFIED 07/20/2018 KARTHIK WARD L COUPLES THERAPIST Ot I10 ESSENTIAL (PRIMARY) HYPERTENSION 07/20/2018 KARTHIK WARD L COUPLES THERAPIST Ot R06.09 OTHER FORMS OF DYSPNEA 07/20/2018 CESARIOMAJOLYNNKARTHIK L COUPLES THERAPIST Ot R07.9 CHEST PAIN, UNSPECIFIED 07/20/2018 MALLY BRITO DO Ot R19.7 DIARRHEA, UNSPECIFIED 07/20/2018 GLORIA WALDEN [employer] Ot J45.909 UNSPECIFIED ASTHMA, UNCOMPLICATED 07/20/2018 GLORIA WALDEN APRN Ot Z72.0 TOBACCO USE 07/20/2018 GLORIA WALDEN [employer] Ot R91.8 OTHER NONSPECIFIC ABNORMAL FINDING OF GUSTAVO 07/20/2018 GLORIA WALDEN [employer] Ot Z72.0 TOBACCO USE 07/20/2018 GLORIA WALDEN [employer] Ot R91.8 OTHER NONSPECIFIC ABNORMAL FINDING OF GUSTAVO 07/20/2018 KAMILLE CHAVEZ DO Ot Z01.818 ENCOUNTER FOR OTHER PREPROCEDURAL EXAMIN 01/12/2019 PRESTON HOLLEY MD Ot R56.9 UNSPECIFIED CONVULSIONS 01/12/2019 PRESTON HOLLEY MD Ot R56.9 UNSPECIFIED CONVULSIONS 01/12/2019 PRESTON HOLLEY MD Ot Z79.899 OTHER TRADE SPECIALIST (CURRENT) DRUG THERAPY 01/12/2019 PRESTON HOLLEY MD Ot R56.9 UNSPECIFIED CONVULSIONS 01/12/2019 KAMILLE CHAVEZ DO Ot E66.9 OBESITY, UNSPECIFIED 01/12/2019 KAMILLE CHAVEZ DO Ot J44.9 CHRONIC OBSTRUCTIVE PULMONARY DISEASE, U 01/12/2019 KAMILLE CHAVEZ DO Ot Z72.0 TOBACCO USE 01/12/2019 KAMILLE CHAVEZ DO Ot E66.9 OBESITY, UNSPECIFIED 01/12/2019 KAMILLE CHAVEZ DO Ot J43.9 EMPHYSEMA, UNSPECIFIED 01/12/2019 KAMILLE CHAVEZ DO M Ot Z72.0 TOBACCO USE 01/12/2019 PRESTON HOLLEY MD Ot R56.9 UNSPECIFIED CONVULSIONS 01/12/2019 GLORIA WALDEN APRN Ot J98.4 OTHER DISORDERS OF LUNG 01/12/2019 GLORIA WALDEN APRN Ot R56.9 UNSPECIFIED CONVULSIONS 01/12/2019 KARTHIK WARD COUPLES THERAPIST Ot E78.5 HYPERLIPIDEMIA, UNSPECIFIED 01/12/2019 KARTHIK WARD COUPLES THERAPIST Ot I10 ESSENTIAL (PRIMARY) HYPERTENSION 01/12/2019 KARTHIK WARD COUPLES THERAPIST Ot R06.09 OTHER FORMS OF DYSPNEA 01/12/2019 KARTHIK WARD COUPLES THERAPIST Ot R07.9 CHEST PAIN, UNSPECIFIED 01/12/2019 MALLY BRITO DO Ot R19.7 DIARRHEA, UNSPECIFIED 01/12/2019 GLORIA WALDEN APRN Ot J45.909 UNSPECIFIED ASTHMA, UNCOMPLICATED 01/12/2019 GLORIA WALDEN APRN Ot Z72.0 TOBACCO USE 01/12/2019 GLORIA WALDEN APRN Ot R91.8 OTHER NONSPECIFIC ABNORMAL FINDING OF GUSTAVO 01/12/2019 GLORIA WALDEN APRN Ot Z72.0 TOBACCO USE 01/12/2019 GLORIA WALDEN [employer] Ot R91.8 OTHER NONSPECIFIC ABNORMAL FINDING OF GUSTAVO 01/12/2019 KAIMLLE CHAVEZ DO Ot Z01.818 ENCOUNTER FOR OTHER PREPROCEDURAL EXAMIN 01/14/2019 PRESTON HOLLEY MD Ot R56.9 UNSPECIFIED CONVULSIONS 01/14/2019 PRESTON HOLLEY MD Ot R56.9 UNSPECIFIED CONVULSIONS 01/14/2019 PRESTON HOLLEY MD Ot Z79.899 OTHER ASSISTED (CURRENT) DRUG THERAPY 01/14/2019 PRESTON HOLLEY MD Ot R56.9 UNSPECIFIED CONVULSIONS 01/14/2019 KAMILLE CHAVEZ DO Ot E66.9 OBESITY, UNSPECIFIED 01/14/2019 KAMILLE CHAVEZ DO Ot J44.9 CHRONIC OBSTRUCTIVE PULMONARY DISEASE, U 01/14/2019 KAMILLE CHAVEZ DO M Ot Z72.0 TOBACCO USE 01/14/2019 KAMILLE CHAVEZ DO M Ot E66.9 OBESITY, UNSPECIFIED 01/14/2019 KAMILLE CHAVEZ DO Ot J43.9 EMPHYSEMA, UNSPECIFIED 01/14/2019 KAMILLE CHAVEZ DO M Ot Z72.0 TOBACCO USE 01/14/2019 PRESTON HOLLEY MD Ot R56.9 UNSPECIFIED CONVULSIONS 01/14/2019 GLORIA WALDEN [employer] Ot J98.4 OTHER DISORDERS OF LUNG 01/14/2019 GLORIA WALDEN [employer] Ot R56.9 UNSPECIFIED CONVULSIONS 01/14/2019 KARTHIK WARD COUPLES THERAPIST Ot E78.5 HYPERLIPIDEMIA, UNSPECIFIED 01/14/2019 KARTHIK WARD L COUPLES THERAPIST Ot I10 ESSENTIAL (PRIMARY) HYPERTENSION 01/14/2019 KARTHIK WARD COUPLES THERAPIST Ot R06.09 OTHER FORMS OF DYSPNEA 01/14/2019 KARTHIK WARD L COUPLES THERAPIST Ot R07.9 CHEST PAIN, UNSPECIFIED 01/14/2019 MALLY BRITO DO Ot R19.7 DIARRHEA, UNSPECIFIED 01/14/2019 GLORIA WALDEN [employer] Ot J45.909 UNSPECIFIED ASTHMA, UNCOMPLICATED 01/14/2019 GLORIA WALDEN [employer] Ot Z72.0 TOBACCO USE 01/14/2019 GLORIA WALDEN [employer] Ot R91.8 OTHER NONSPECIFIC ABNORMAL FINDING OF GUSTAVO 01/14/2019 GLORIA WALDEN [employer] Ot Z72.0 TOBACCO USE 01/14/2019 IRAM GLORIA Stephanie [employer] Ot R91.8 OTHER NONSPECIFIC ABNORMAL FINDING OF GUSTAVO 01/14/2019 KAMILLE CHAVEZ DO Ot Z01.818 ENCOUNTER FOR OTHER PREPROCEDURAL EXAMIN 01/16/2019 RANI WALDENINE E [employer] Ot C34.90 MALIGNANT NEOPLASM OF UNSP PART OF UNSP 01/16/2019 RANI WALDENINE E [employer] Ot G47.10 HYPERSOMNIA, UNSPECIFIED 01/16/2019 IRAM GLORIA E [employer] Ot J45.909 UNSPECIFIED ASTHMA, UNCOMPLICATED 01/16/2019 IRAM, GLORIA E [employer] Ot J98.4 OTHER DISORDERS OF LUNG 01/16/2019 IRAMRANI LIZARRAGAINE Stephanie [employer] Ot Z72.0 TOBACCO USE 01/18/2019 RANI WALDENINE Stephanie [employer] Ot G47.10 HYPERSOMNIA, UNSPECIFIED 01/18/2019 RANI WALDENINE Stephanie [employer] Ot J45.909 UNSPECIFIED ASTHMA, UNCOMPLICATED 01/18/2019 RANI WALDENINE E [employer] Ot J98.4 OTHER DISORDERS OF LUNG 01/18/2019 RANI WALDENINE Stephanie [employer] Ot R06.00 DYSPNEA, UNSPECIFIED 01/18/2019 RANI WALDENINE Stephanie [employer] Ot Z72.0 TOBACCO USE 01/19/2019 RANI WALDENINE Stephanie [employer] Ot J98.4 OTHER DISORDERS OF LUNG 01/19/2019 RANI WALDENINE E [employer] Ot R56.9 UNSPECIFIED CONVULSIONS 01/19/2019 KAMILLE CHAVEZ DO Ot Z01.818 ENCOUNTER FOR OTHER PREPROCEDURAL EXAMIN 01/20/2019 KAMILLE CHAVEZ DO Ot Z01.818 ENCOUNTER FOR OTHER PREPROCEDURAL EXAMIN 01/25/2019 PRESTON HOLLEY MD Ot R56.9 UNSPECIFIED CONVULSIONS 01/25/2019 PRESTON HOLLEY MD Ot R56.9 UNSPECIFIED CONVULSIONS 01/25/2019 PRESTON HOLLEY MD Ot Z79.899 OTHER TRADE SPECIALIST (CURRENT) DRUG THERAPY 01/25/2019 PRESTON HOLLEY MD Ot R56.9 UNSPECIFIED CONVULSIONS 01/25/2019 KAMILLE CHAVEZ DO Ot E66.9 OBESITY, UNSPECIFIED 01/25/2019 SCOTT DOKAMILLE Ot J44.9 CHRONIC OBSTRUCTIVE PULMONARY DISEASE, U 01/25/2019 SCOTT FOREMAN KAMILLE M Ot Z72.0 TOBACCO USE 01/25/2019 KAMILLE CHAVEZ DO Ot E66.9 OBESITY, UNSPECIFIED 01/25/2019 KAMILLE CHAVEZ DO Ot J43.9 EMPHYSEMA, UNSPECIFIED 01/25/2019 KAMILLE CHAVEZ DO Ot Z72.0 TOBACCO USE 01/25/2019 LEYDI KRUSE, PRESTON Montelongo Ot R56.9 UNSPECIFIED CONVULSIONS 01/25/2019 GLORIA WALDEN [employer] Ot J98.4 OTHER DISORDERS OF LUNG 01/25/2019 GLORIA WALDEN APRN Ot R56.9 UNSPECIFIED CONVULSIONS 01/25/2019 KARTHIK WARD COUPLES THERAPIST Ot E78.5 HYPERLIPIDEMIA, UNSPECIFIED 01/25/2019 BAIMA KARTHIK L COUPLES THERAPIST Ot I10 ESSENTIAL (PRIMARY) HYPERTENSION 01/25/2019 KARTHIK WARD COUPLES THERAPIST Ot R06.09 OTHER FORMS OF DYSPNEA 01/25/2019 CESARIOMA KARTHIK L COUPLES THERAPIST Ot R07.9 CHEST PAIN, UNSPECIFIED 01/25/2019 MALLY BRITO DO Ot R19.7 DIARRHEA, UNSPECIFIED 01/25/2019 GLORIA WALDEN APRN Ot J45.909 UNSPECIFIED ASTHMA, UNCOMPLICATED 01/25/2019 GLORIA WALDEN APRN Ot Z72.0 TOBACCO USE 01/25/2019 GLORIA WALDEN APRN Ot R91.8 OTHER NONSPECIFIC ABNORMAL FINDING OF GUSTAVO 01/25/2019 GLORIA WALDEN APRN Ot Z72.0 TOBACCO USE 01/25/2019 GLORIA WALDEN APRN Ot R91.8 OTHER NONSPECIFIC ABNORMAL FINDING OF GUSTAVO 01/25/2019 KAMILLE CHAVEZ DO Ot Z01.818 ENCOUNTER FOR OTHER PREPROCEDURAL EXAMIN 01/25/2019 GLORIA WALDEN APRN Ot G47.10 HYPERSOMNIA, UNSPECIFIED 01/25/2019 GLORIA WALDEN [employer] Ot J45.909 UNSPECIFIED ASTHMA, UNCOMPLICATED 01/25/2019 GLORIA WALDEN [employer] Ot J98.4 OTHER DISORDERS OF LUNG 01/25/2019 GLORIA WALDEN APRN Ot R06.00 DYSPNEA, UNSPECIFIED 01/25/2019 GLORIA WALDEN [employer] Ot Z72.0 TOBACCO USE 01/25/2019 GLORIA WALDEN [employer] Ot C34.90 MALIGNANT NEOPLASM OF UNSP PART OF UNSP 01/25/2019 GLORIA WALDEN [employer] Ot G47.10 HYPERSOMNIA, UNSPECIFIED 01/25/2019 GLORIA WALDEN [employer] Ot J45.909 UNSPECIFIED ASTHMA, UNCOMPLICATED 01/25/2019 GLORIA WALDEN [employer] Ot J98.4 OTHER DISORDERS OF LUNG 01/25/2019 GLORIA WALDEN APRN Ot Z72.0 TOBACCO USE [...] measurement (mass/volume) 4.2 g/dL 3.2-4.5 Magnesium - 05/29/17 20:10 Magnesium 2.1 mg/dL 1.8-2.4 Serum or [...] FOR INFLUENZA A AND B ANTIGENS BY [facility] Comprehensive metabolic panel - 01/24/18 [...] - 03/17/18 20:00 Lipase 27 U/L 8-78 DIFFERENTIAL, MANUAL - 03/31/18 09:23 ABSOLUTE NEUTROPHILS 3055 cells/uL 2623-4042 ABSOLUTE MONOCYTES 455 cells/uL 200-950 ABSOLUTE EOSINOPHILS 195 cells/uL 15-500 ABSOLUTE BASOPHILS 0 cells/uL 0-200 NEUTROPHILS 47 % NRG LYMPHOCYTES 43 % NRG MONOCYTES 7 % NRG EOSINOPHILS 3 % NRG BASOPHILS 0 % NRG ABSOLUTE LYMPHOCYTES 2795 cells/uL 850-3900 PLATELET ESTIMATION ADEQUATE ADEQUATE CBC MORPHOLOGY NORMAL COMMENT(S) NRG Complete blood count (CBC) with automated white blood cell (WBC) differential - 03/31/18 11:55 Blood leukocytes automated count (number/volume) 5.7 10*3/uL 4.3-11.0 Blood erythrocytes automated count (number/volume) 4.15 10*6/uL 4.35-5.85 Venous blood hemoglobin measurement (mass/volume) 13.7 g/dL 11.5-16.0 Blood hematocrit (volume fraction) 39 % 35-52 Automated erythrocyte mean corpuscular volume 95 [foz_us] 80-99 Automated erythrocyte mean corpuscular hemoglobin (mass per erythrocyte) 33 pg 25-34 Automated erythrocyte mean corpuscular hemoglobin concentration measurement ( mass/volume) 35 g/dL 32-36 Automated erythrocyte distribution width ratio 12.4 % 10.0-14.5 Automated blood platelet count (count/volume) 201 10*3/uL 130-400 Automated blood platelet mean volume measurement 9.8 [foz_us] 7.4-10.4 Automated blood neutrophils/100 leukocytes 56 % 42-75 Automated blood lymphocytes/100 leukocytes 35 % 12-44 Blood monocytes/100 leukocytes 6 % 0-12 Automated blood eosinophils/100 leukocytes 2 % 0-10 Automated blood basophils/100 leukocytes 0 % 0-10 Blood neutrophils automated count (number/volume) 3.2 10*3 1.8-7.8 Blood lymphocytes automated count (number/volume) 2.0 10*3 1.0-4.0 Blood monocytes automated count (number/volume) 0.4 10*3 0.0-1.0 Automated eosinophil count 0.1 10*3/uL 0.0-0.3 Automated blood basophil count (count/volume) 0.0 10*3/uL 0.0-0.1 Comprehensive metabolic panel - 03/31/18 11:55 Serum or plasma sodium measurement (moles/volume) 141 mmol/L 135-145 Serum or plasma potassium measurement (moles/volume) 3.6 mmol/L 3.6-5.0 Serum or plasma chloride measurement (moles/volume) 106 mmol/L 98-107 Carbon dioxide 27 mmol/L 21-32 Serum or plasma anion gap determination (moles/volume) 8 mmol/L 5-14 Serum or plasma urea nitrogen measurement (mass/volume) 15 mg/dL 7-18 Serum or plasma creatinine measurement (mass/volume) 0.78 mg/dL 0.60-1.30 Serum or plasma urea nitrogen/creatinine mass ratio 19 NRG Serum or plasma creatinine measurement with calculation of estimated glomerular filtration rate > NRG Serum or plasma glucose measurement (mass/volume) 300 mg/dL 70-105 Serum or plasma calcium measurement (mass/volume) 9.1 mg/dL 8.5-10.1 Serum or plasma total bilirubin measurement (mass/volume) 0.4 mg/dL 0.1-1.0 Serum or plasma alkaline phosphatase measurement (enzymatic activity/volume) 69 U/L 40-136 Serum or plasma aspartate aminotransferase measurement (enzymatic activity/ volume) 9 U/L 5-34 Serum or plasma alanine aminotransferase measurement (enzymatic activity/volume ) 17 U/L 0-55 Serum or plasma protein measurement (mass/volume) 6.0 g/dL 6.4-8.2 Serum or plasma albumin measurement (mass/volume) 3.8 g/dL 3.2-4.5 Magnesium - 03/31/18 11:55 Magnesium 1.9 mg/dL 1.8-2.4 TSH - 07/28/18 12:43 TSH 3.11 mIU/L NRG PDM - 09 PANEL (PROFILE 1) - 07/28/18 12:43 Creatinine 193.9 mg/dL > or=20.0 pH 6.20 4.5 - 9.0 Oxidant NEGATIVE mcg/mL <200 Amphetamines NEGATIVE ng/mL <500 medMATCH Amphetamines CONSISTENT NRG Benzodiazepines POSITIVE ng/mL <100 Marijuana Metabolite NEGATIVE ng/mL <20 medMATCH Marijuana Metab CONSISTENT NRG Cocaine Metabolite NEGATIVE ng/mL <150 medMATCH Cocaine Metab CONSISTENT NRG Opiates POSITIVE ng/mL <100 Oxycodone NEGATIVE ng/mL <100 medMATCH Oxycodone CONSISTENT NRG COMMENT NRG Alphahydroxyalprazolam 401 ng/mL <25 medMATCH aOH alprazolam INCONSISTENT NRG Alphahydroxymidazolam NEGATIVE ng/mL <50 medMATCH aOH midazolam CONSISTENT NRG Alphahydroxytriazolam NEGATIVE ng/mL <50 medMATCH aOH triazolam CONSISTENT NRG Aminoclonazepam NEGATIVE ng/mL <25 medMATCH Aminoclonazepam CONSISTENT NRG Hydroxyethylflurazepam NEGATIVE ng/mL <50 medMATCH OH,Et flurazepam CONSISTENT NRG Lorazepam NEGATIVE ng/mL <50 medMATCH Lorazepam CONSISTENT NRG Nordiazepam NEGATIVE ng/mL <50 medMATCH Nordiazepam CONSISTENT NRG Oxazepam NEGATIVE ng/mL <50 medMATCH Oxazepam CONSISTENT NRG Temazepam NEGATIVE ng/mL <50 medMATCH Temazepam CONSISTENT NRG Codeine NEGATIVE ng/mL <50 medMATCH Codeine CONSISTENT NRG Hydrocodone 1446 ng/mL <50 medMATCH Hydrocodone INCONSISTENT NRG Hydromorphone 204 ng/mL <50 medMATCH Hydromorphone INCONSISTENT NRG Morphine NEGATIVE ng/mL <50 medMATCH Morphine CONSISTENT NRG Norhydrocodone 4679 ng/mL <50 medMATCH Norhydrocodone INCONSISTENT NRG Barbiturates NEGATIVE ng/mL <300 medMATCH Barbiturates CONSISTENT NRG Methadone Metabolite NEGATIVE ng/mL <100 medMATCH Methadone Metab CONSISTENT NRG Phencyclidine NEGATIVE ng/mL <25 medMATCH Phencyclidine CONSISTENT NRG Capillary blood glucose measurement by glucometer (mass/volume) - 01/26/19 07: 36 Capillary blood glucose measurement by glucometer (mass/volume) 241 mg/dL 70-110 Encounters ACCT No. Visit Date/Time Discharge Status Pt. Type Provider Facility Loc./Unit Complaint [id number] 06/06/2014 08:47:00 06/06/2014 23:59:59 CLS Outpatient GERARDO KISER APRN [id number] 05/16/2014 10:11:00 05/16/2014 23:59:59 CLS Outpatient GERARDO KISER APRN [id number] 05/09/2014 09:17:00 05/09/2014 23:59:59 CLS Outpatient GERARDO KISER APRN [id number] 02/07/2017 11:07:00 Document Registration [id number] 01/19/2019 05:39:00 01/19/2019 14:32:00 DIS Outpatient KAMILLE CHAVEZ DO [facility] PREOP EBUS [id number] 01/17/2019 12:54:00 01/17/2019 23:59:59 CLS Outpatient GLORIA WALDEN [employer] [facility] RT ASTHMA,BRONCHITIS [id number] 01/14/2019 13:40:00 01/14/2019 23:59:59 CLS Outpatient GLORIA WALDEN [employer] [facility] RAD ASTHMA,DYSPNEA [id number] 12/28/2018 07:39:00 12/28/2018 23:59:59 CLS Preadmit GLORIA WALDEN [employer] [facility] RT ASTHMA,BRONCHITIS [id number] 07/01/2018 07:30:00 07/01/2018 23:59:59 CLS Outpatient KAMILLE CHAVEZ DO [facility] PREOP BRONCHOSCOPY [id number] 06/21/2018 07:43:00 06/21/2018 23:59:59 CLS Outpatient GLORIA WALDEN [employer] [facility] RAD LUNG MASS [id number] 06/08/2018 09:00:00 06/08/2018 23:59:59 CLS Preadmit JOSE R KRUSE, VINAY Almazan INCONTINENCE, OVERACTIVE BLADDER, ISC [id number] 04/15/2018 10:00:00 04/15/2018 23:59:59 CLS Preadmit MALLY BRITO DO [facility] CARD [id number] 03/31/2018 10:49:00 03/31/2018 13:24:00 DIS Emergency BUSHRA WHITEHEAD MD [facility] ER POSS PNEUMONIA [id number] 03/23/2018 08:23:00 03/23/2018 23:59:59 CLS Outpatient GLORIA WALDEN [employer] [facility] RAD R91.8 LUNG MASS [id number] 03/19/2018 20:10:00 03/20/2018 06:00:00 DIS Outpatient GLORIA WALDEN [employer] [facility] SLEEP J45.909 ASTHMA [id number] 03/17/2018 19:07:00 03/17/2018 20:59:00 DIS Emergency JOSSELIN QUINONEZ DO [facility] ER BS HIGH, MASS IN LUNG [id number] 03/15/2018 09:30:00 03/15/2018 23:59:59 CLS Preadmit GLORIA WALDEN APRN [facility] PULM J45.909 ASTHMA [id number] 03/08/2018 12:09:00 03/08/2018 23:59:59 CLS Outpatient GLORIA WALDEN APRN [facility] RAD J45.909 ASTHMA [id number] 03/04/2018 12:00:00 03/04/2018 23:59:59 CLS Preadmit MALLY BRITO DO [facility] CARD DIARRHEA [id number] 02/25/2018 08:02:00 02/25/2018 23:59:59 CLS Outpatient MALLY BRITO DO [facility] RAD DIARRHEA [id number] 02/23/2018 07:05:00 02/23/2018 23:59:59 CLS Outpatient KARTHIK WARD [facility] CARD CHEST PAIN, EXERTIONAL DYSPNEA [id number] 02/10/2018 14:17:00 02/10/2018 23:59:59 CLS Preadmit KARTHIK WARDP [facility] CARD CHEST PAIN,EXERTIONAL DYSPNEA [id number] 02/02/2018 12:27:00 02/02/2018 15:40:00 DIS Outpatient BRITO MALLY FOREMAN [facility] ENDO SCREENING/GERD [id number] 01/28/2018 05:35:00 01/28/2018 12:23:00 DIS Outpatient MALLY BRITO DO [facility] PREOP COLONOSCOPY/EGD [id number] 01/24/2018 18:04:00 01/24/2018 21:28:00 DIS Emergency JACKY CORONEL [facility] ER DIAHRREA,VOMITING [id number] 04/20/2017 10:15:00 04/20/2017 23:59:59 CLS Preadmit GLORIA WALDEN APRN [facility] PULM RESTRICTIVE LUNG DISEASE,SEIZURE [id number] 03/12/2017 13:00:00 04/19/2017 00:01:00 DIS Outpatient GLORIA WALDEN APRN [facility] PULM RESTRICTIVE LUNG DISEASE,SEIZURE [id number] 03/30/2017 19:26:00 03/30/2017 21:15:00 DIS Emergency DEVI JOSSELIN K [facility] ER SOA [id number] 03/28/2017 13:33:00 03/28/2017 17:13:00 DIS Emergency SHELDON KRUSE, TYLER Montelongo [facility] ER SOA [id number] 03/24/2017 14:15:00 03/24/2017 23:59:59 CLS Preadmit KAMILLE CHAVEZ DO [facility] RAD J43.9 COPD [id number] 03/24/2017 13:23:00 03/24/2017 15:50:00 DIS Emergency GALA TALLEY APRN [facility] ER CHEST PAIN [id number] 03/21/2017 09:07:00 03/21/2017 12:05:00 DIS Emergency GALA TALLEY APRN [facility] ER BLOODY AND FREQUENT STOOL [id number] 01/26/2017 12:34:00 01/27/2017 13:40:00 DIS Inpatient STIVEN RAYMODN MD [facility] 4TH DIVERTICULITIS [id number] 01/23/2017 12:36:00 01/23/2017 15:34:00 DIS Emergency GALA TALLEY APRN [facility] ER FEVER/CHILLS CONSTIPATION/ DIARRHEA [id number] 01/12/2017 09:12:00 01/12/2017 23:59:59 CLS Outpatient PRESTON HOLLEY MD [facility] RT SEIZURE [id number] 12/20/2016 20:10:00 12/21/2016 06:10:00 DIS Outpatient KAMILLE CHAVEZ DO [facility] SLEEP SNORING [id number] 09/23/2016 08:51:00 09/23/2016 23:59:59 CLS Outpatient KAMILLE CHAVEZ DO [facility] RAD COPD,TOBACCO USER [id number] 08/13/2016 14:29:00 08/13/2016 23:59:59 CLS Outpatient KAMILLE CHAVEZ DO [facility] RT COPD,OBESITY [id number] 06/27/2016 15:19:00 06/27/2016 23:59:59 CLS Outpatient PRESTON HOLLEY MD [facility] RAD SEIZURE [id number] 05/15/2016 06:57:00 05/15/2016 12:50:00 DIS Outpatient RENETTA KRUSE FACC, VALENTIN HANDLEY CCDS [facility] CATH ANGINA,SOB LEG PAIN [id number] 05/12/2016 11:18:00 05/12/2016 23:59:59 CLS Outpatient PRESTON HOLLEY MD [facility] LAB SEIZURES [id number] 05/12/2016 09:25:00 05/12/2016 23:59:59 CLS Outpatient PRESTON HOLLEY MD [facility] RT SEIZURE NOS [id number] 02/27/2016 14:00:00 04/03/2016 09:43:00 DIS Outpatient CHAVA SHAFER MD [facility] REHAB CERVICAL STRAIN [id number] 02/10/2016 11:48:00 02/10/2016 14:00:00 DIS Emergency JACKY CORONEL [facility] ER R FOOT INJ [id number] 02/21/2019 21:00:00 PEN Preadmit GLORIA WALDEN APRN [facility] SLEEP HYPERSONMIA [id number] 01/28/2019 08:00:00 PEN Preadmit MALLY BRITO DO [facility] RAD DIARRHEA [id number] 01/26/2019 06:58:00 ACT Outpatient KAMILLE CHAVEZ DO [facility] ENDO HYPERSOMNIA/DYSPNEA/ [id number] 01/25/2019 10:30:00 PEN Preadmit KAMILLE CHAVEZ DO [facility] RAD ABN CHEST CT [id number] 01/24/2019 14:23:00 PEN Preadmit MALLY BRITO DO [facility] RAD DIARRHEA [id number] 01/24/2019 13:01:00 PEN Kelin JACKSON MD FACC, VALENTIN HANDLEY CCDS [facility] CARD CHEST DISCOMFORT,SOB,COPD [id number] 01/18/2019 16:40:00 01/18/2019 23:59:59 CLS Outpatient GERARDO KISER APRN [facility] [id number] 07/28/2018 12:00:00 Document Registration [id number] 03/31/2018 08:25:00 Document Registration [id number] 01/26/2018 21:02:00 01/26/2018 22:39:00 DIS Outpatient STRATHMERE [facility] [place] [id number] 01/26/2018 21:13:23 Document Registration [id number] 03/11/2017 08:45:00 Document Registration
[2019-01-26 09:15] VITALS: BP 120/63
--- NOTE | 2019-01-26 09:35 | Diagnostic Imaging Report ---
INDICATION: Status post bronchoscopy. TIME OF EXAM: 09:13 a.m. Correlation is made with prior chest from 03/31/2018. The heart size is stable. There appears to be some minimal infiltrate in the left upper lobe. No pneumothorax is seen. No effusion is identified. IMPRESSION: 1. No evidence of pneumothorax status post bronchoscopy. 2. Hazy increased density in the left upper lobe suggestive of infiltrate. Dictated by: Dictated on workstation # [id number]
[2019-01-26 09:45] VITALS: BP 99/52
[2019-01-26] MEDS ORDERED: ONDANSETRON 4 MG/2 ML (SDV) Z0FRAN IVP ONE (09:45)
--- NOTE | 2019-01-26 09:52 | Diagnostic Imaging Report ---
INDICATION: Fluoroscopy during bronchoscopy. Fluoroscopy was provided for Dr. Benitez during bronchoscopy. 22 seconds of fluoroscopy was utilized. IMPRESSION: Fluoroscopy during bronchoscopy. Dictated by: Dictated on workstation # [id number]
[2019-01-26 09:54] VITALS: BP 99/52
--- NOTE | 2019-01-26 13:02 | Anesthesia-General Post-Op ---
General Patient Condition Mental Status/LOC: Same as Preop Cardiovascular: Satisfactory Nausea/Vomiting: Absent Respiratory: Satisfactory Pain: Controlled Complications: Absent Post Op Complications Complications None Follow Up Care/Instructions Patient Instructions None needed. Anesthesia/Patient Condition Patient Condition Patient is doing well, no complaints, stable vital signs, no apparent adverse anesthesia problems. No complications reported per nursing. NELA ACEVEDO CRNA Jan 26, 2019 13:02
--- NOTE | 2019-01-26 16:43 | Pulmonary Procedures ---
Pulmonary Procedures Date of Procedure Date of Service: Jan 26, 2019 Bronch Bronchoscopy with Fluoroscopy, AVRIL BAL, brush x 2, and brush x 2 of main chanel. EBUS was used to US lymph nodes however nothing was large enough to bx. Preop DX:Lung mass PostOP DX: same- No endobronchial mass Complications: None Pt was sedated per anesthesia. Bronchoscopy was advanced through the ET tube and an anatomical undertaken down to the segmental bronchi bilaterally. No endobronchial lesions noted. Bronchoscopy with Fluoroscopy was used to obtain AVRIL BAL, brush x 2, and brush x 2 of main chanel. EBUS was used to US lymph nodes however nothing was large enough to bx. . Pt tolerated procedure well. No complications noted. KAMILLE CHAVEZ DO Jan 26, 2019 16:43
[2019-01-27] MEDS ORDERED: FLUC150T PO (11:56)
[2019-01-27] MEDS ORDERED: CEFU250T80 PO (11:56)
== END 2019-01-26 09:50 | disposition home or self-care (01) ==
LOC: ENDO 06:58
PROVIDERS: ATTEND Internal Medicine Critical Care Medicine
DX: R91.8 Other nonspecific abnormal finding of lung field (principal); J45.909 Unspecified asthma, uncomplicated; J98.4 Other disorders of lung; R06.00 Dyspnea, unspecified; G47.10 Hypersomnia, unspecified; Z88.0 Allergy status to penicillin; Z79.4 Long term (current) use of insulin; Z79.899 Other long term (current) drug therapy; F41.9 Anxiety disorder, unspecified; F31.9 Bipolar disorder, unspecified; F17.210 Nicotine dependence, cigarettes, uncomplicated
CPT/HCPCS: 71045; 82962; 87015; 87070; 87101; 87116; 87205; 87206; 94640

== ENCOUNTER 2019-01-27 09:36 | Emergency (ER) | payer MEDICAID ==
[~2019-01-27] VITALS: Ht 154.9 cm; Wt 73.5 kg
--- OUTSIDE RECORDS SUMMARY | 2019-01-27 09:43 | XMS REPORT ---
Author Author GERARDO KISER [facility] Address [address] [place] [address] Care Team Providers Care Assessor Name Role Phone GERARDO KISER Unavailable PROBLEMS Type Condition ICD9-CM Code CFB26-CG Code Onset Dates Condition Status SNOMED Code Problem COPD (chronic obstructive pulmonary disease) J44.9 Active 99401929 Problem Type 2 diabetes mellitus without complications E11.9 Active 512157557 Problem Diabetes E11.9 Active 42820956 Problem Hypoglycemia E16.2 Active 491901391 Problem Bilateral claudication of lower limb I73.9 Active 804445325 Problem Type 2 diabetes mellitus with hyperglycemia E11.65 Active 045871589 Problem Chronic post-traumatic stress disorder (PTSD) F43.12 Active 033697541 Problem Hyperlipidemia, unspecified hyperlipidemia type E78.5 Active 30590834 Problem Lumbago M54.5 Active 669923096 Problem Hypertension, unspecified type I10 Active 14057932 Problem Tobacco abuse Z72.0 Active 02715487 Problem Hepatitis C B19.20 Active 84852273 Problem OAB (overactive bladder) N32.81 Active 493669778 Problem Hypertension, benign I10 Active 18169932 Problem Type 2 diabetes mellitus with hyperglycemia E11.65 Active 942412802 Problem Gastritis and duodenitis K29.90 Active 803475356 Problem History of hypothyroidism Z86.39 Active 209690732 Problem Primary insomnia F51.01 Active 7728848 Problem History of hypertension Z86.79 Active 100668790 Problem Bipolar I disorder with duy F31.10 Active 33878631 Problem Epilepsy G40.909 Active 18035460 Problem Bipolar I disorder with mood-congruent psychotic features F31.9 Active 721987600 Problem Panic disorder with agoraphobia F40.01 Active 35186092 Problem Seasonal allergic rhinitis due to other allergic trigger J30.89 Active 896485010 Problem Cervicalgia M54.2 Active 97723367 Problem Stress incontinence of urine N39.3 Active 97904796 Problem Other chronic pain G89.29 Active 52970376 Problem Bipolar affective disorder, currently depressed, mild F31.31 Active 498138495 Problem El's esophageal ulceration K22.10 Active 161988747 Problem Stress incontinence N39.3 Active 36214375 Problem Uncontrolled type 2 diabetes mellitus with hyperglycemia E11.65 Active 384742867 Problem Mood disorder F39 Active 71798881 Problem Bipolar disorder, current episode depressed, severe, without psychotic features F31.4 Active 929083507 Problem long-term current use of insulin Z79.4 Active 670496781 Problem History of seizures Z87.898 Active 695418785 Problem Uncontrolled type 2 diabetes mellitus without complication, without long-term current use of insulin E11.65 Active 421847349 Problem History of high cholesterol Z86.39 Active 476383040 Problem Irritable bowel syndrome with diarrhea K58.0 Active 796725749 Problem Controlled type 2 diabetes mellitus without complication, without long -term current use of insulin E11.9 Active 342424948 Problem History of HI (myocardial infarction) I25.2 Active 920238807 Problem Chronic tension-type headache, not intractable G44.229 Active 397128119 Problem Fallen bladder N81.10 Active 250407037 ALLERGIES No Information ENCOUNTERS Encounter Location Date Diagnosis [place] [address] [address]- [address] Jan, [place] [address] [address]- 3190 Jan, [place] [address] [place] [id number] [place] [address] 83181- 5265 Dec, [place] [address] 43998- 6527 Dec, Type 2 diabetes mellitus without complications E11.9 [place] [address] 99764- 2592 19 Dec, 2018 Bipolar disorder, current episode depressed, severe, without psychotic features F31.4 ; Panic disorder with agoraphobia F40.01 and Chronic post-traumatic stress disorder (PTSD) F43.12 [place] [address] 6[address]73- 0885 Dec, Type 2 diabetes mellitus without complications E11.9 [facility] [id number] [place] [address] 48587- 0089 14 Dec, 2018 Uncontrolled type 2 diabetes mellitus with hyperglycemia E11.65 and History of COPD Z87.09 [facility] [address] [place] [id number] [place] [address] 22273- 2045 13 Dec, 2018 Type 2 diabetes mellitus without complications E11.9 [facility] [address] [place] [id number] [place] [address] 42841- 3306 Dec, [place] [address] [place] [id number] [place] [address] 55914- 1420 Dec, Panic disorder with agoraphobia F40.01 ; Chronic post- traumatic stress disorder (PTSD) F43.12 and Bipolar disorder, current episode depressed, severe, without psychotic features F31.4 [place] [address] [place] [id number] [place] [address] 17713- 4048 Dec, Type 2 diabetes mellitus with hyperglycemia E11.65 [place] [address] [address] 1895 Dec, [place] [address] [place] [id number] [place] [address] 84063- 3049 Dec, [place] [address] [address] 4975 Dec, [facility] [id number] [place] [address] 47356- 0957 Dec, Type 2 diabetes mellitus without complications E11.9 [place] [address] [place] [id number] [place] [address] 31988- 0087 Nov, Type 2 diabetes mellitus without complications E11.9 [place] [address] [place] [id number] [address] 3620 Nov, Type 2 diabetes mellitus without complications E11.9 and Uncontrolled type 2 diabetes mellitus with hyperglycemia E11.65 [place] [address] [place] [id number] [address]- 3275 Nov, Panic disorder with agoraphobia F40.01 ; Bipolar affective disorder, currently depressed, mild F31.31 and Chronic post-traumatic stress disorder (PTSD) F43.12 [facility] [address] [place] [id number] [address]- 7145 Oct, [facility] [address] [place] [id number] [place] [address] 92510- 1019 Oct, [facility] [address] [place] [id number] [place] [address] 19900- 1511 Sep, [facility] [address] [place] [id number] [place] [address] 08168- 0270 Sep, [facility] [address] [place] [id number] [place] [address] 42517- 2530 Sep, [facility] [address] [place] [id number] [place] [address] 90614- 8297 Sep, Type 2 diabetes mellitus without complications E11.9 [facility] [address] [place] [id number] [place] [address] 69456- 5682 Sep, Type 2 diabetes mellitus without complications E11.9 [facility] [address] [address]- 2385 Aug, Type 2 diabetes mellitus without complications E11.9 [facility] [address] [address]- 2304 Aug, [facility] [address] [address]- 7023 Aug, Type 2 diabetes mellitus without complications E11.9 [facility] [address] [place] [id number] [address]- 5486 Aug, [facility] [address] [address]- 7913 Aug, [facility] [address] [place] [id number] [place] [address] 59631- 3146 Aug, Bipolar 2 disorder F31.81 ; Chronic post-traumatic stress disorder (PTSD) F43.12 and Panic disorder with agoraphobia F40.01 [facility] [address] [place] [id number] [place] [address] 00538- 6942 Aug, [facility] [address] [place] [id number] [place] [address] 75170- 9769 Jul, [facility] [address] [place] [id number] [place] [address] 87244- 1558 Jul, Type 2 diabetes mellitus without complications E11.9 ; Fallen bladder N81.10 ; Stress incontinence of urine N39.3 ; Gall bladder disease K82.9 ; Periodontal abscess K05.219 ; Diarrhea, unspecified R19.7 ; Nausea with vomiting, unspecified R11.2 and Chronic tension-type headache, not intractable G44.229 [facility] [address] [place] [id number] [place] [address] 93206- 9021 Jul, [facility] [address] [place] [id number] [place] [address] 36867- 5692 Jul, [facility] [address] [place] [id number] [place] [address] 13545- 3677 Jul, [facility] [address] [place] [id number] [place] [address] 84884- 5955 Jul, Bipolar 2 disorder F31.81 ; Panic disorder with agoraphobia F40.01 and Chronic post-traumatic stress disorder (PTSD) F43.12 [facility] [id number] [place] [address] 36074- 4778 Jun, [facility] [address] [place] [id number] [place] [address] 97208- 7881 Jun, [facility] [id number] [place] [address] 29890- 4524 Jun, Lumbago M54.5 [facility] [address] [place] [id number] [place] [address] 65923- 7016 Jun, Type 2 diabetes mellitus with hyperglycemia E11.65 [place] [address] [place] [address] 52295- 3149 Jun, [facility] [address] [place] [id number] [place] [address] 58785- 3642 Jun, Type 2 diabetes mellitus with hyperglycemia E11.65 ; El 's esophageal ulceration K22.10 and Lumbago M54.5 [place] [address] [place] [id number] [place] [address] 80006- 3877 Jun, Type 2 diabetes mellitus with hyperglycemia E11.65 [place] [address] [place] [id number] [place] [address] 78764- 3733 Jun, [place] [address] [place] [id number] [place] [address] 82795- 7908 Jun, [place] [address] [place] [id number] [place] [address] 04458- 3472 Jun, Bipolar affective disorder, currently depressed, mild F31.31 ; Chronic post-traumatic stress disorder (PTSD) F43.12 and Panic disorder with agoraphobia F40.01 [place] [address] [place] [id number] [place] [address] 30680- 2163 Jun, [place] [id number] [place] [address] 41639- 8240 Jun, [place] [id number] [place] [address] 94797- 0172 Jun, Type 2 diabetes mellitus with hyperglycemia E11.65 [place] [id number] [place] [address] 05965- 7255 Jun, Uncontrolled type 2 diabetes mellitus with hyperglycemia E11.65 [place] [address] [address]- 2028 Jun, [place] [id number] [place] [address] 81775- 9564 May, Lumbago M54.5 [facility] [address] [facility] [id number] [id number] May, [facility] [address] [facility] [id number] [place] [address]- 1656 May, [facility] [address] [facility] [id number] [place] [address]- 9448 May, [facility] [address] [facility] [id number] [place] [address]- 5699 May, [facility] [address] [facility] [id number] [place] [address]- 5573 May, [facility] [address] [facility] [id number] [place] [address]- 4800 May, [facility] [address] [place] [id number] [place] [address]- 4972 May, [facility] [address] [place] [id number] [address]- 9718 May, Lumbago M54.5 [facility] [address] [facility] [id number] [address]- 7012 May, [facility] [address] [place] [id number] [address]- [address], [address] of the chest R93.8 [facility] [address] [place] [id number] [address]- 2214 Apr, Bipolar 2 disorder F31.81 ; Chronic post-traumatic stress disorder (PTSD) F43.12 and Panic disorder with agoraphobia F40.01 [facility] [address] [place] [id number] [address]- [address] Apr, [address] of the chest R93.8 [facility] [address] [place] [id number] [address]- [address] Apr, [address] of the chest R93.8 [facility] [address] [place] [id number] [place] [address] 88810- 7587 14 Apr, 2018 [place] [address] 56356- 8679 Apr, Type 2 diabetes mellitus with hyperglycemia E11.65 [facility] [address] [place] [id number] [place] [address] 54004- 2240 Apr, Controlled type 2 diabetes mellitus without complication, without long-term current use of insulin E11.9 ; Watery eyes H04.203 ; Low back pain M54.5 ; Other chronic pain G89.29 ; Chronic tension-type headache, not intractable G44.229 ; Uncontrolled type 2 diabetes mellitus without complication , without long-term current use of insulin E11.65 and Bronchitis J40 [place] [address] 98283- 8108 Apr, [place] [address] 71451- 3165 Apr, Lumbago M54.5 [place] [address] [place] [id number] [place] [address] 13033- 3246 March, [facility] [address] 17957 -0806 March, Cough R05 ; Pneumonia due to infectious organism, unspecified laterality, unspecified part of lung J18.9 and Non-intractable vomiting with nausea, unspecified vomiting type R11.2 [place] [address] [place] [id number] [place] [address] 91682- 3094 March, Bronchitis J40 [facility] [address] [place] [id number] [place] [address] 33065- 0397 March, [place] [address] 81337- 5540 March, El's esophageal ulceration K22.10 and Type 2 diabetes mellitus with hyperglycemia E11.65 [place] [address] [place] [id number] [place] [address] 64198- 8546 March, Panic disorder with agoraphobia F40.01 ; Chronic post- traumatic stress disorder (PTSD) F43.12 and Bipolar 2 disorder F31.81 [place] [address] [place] [id number] [place] [address] 15905- 2751 March, Type 2 diabetes mellitus with hyperglycemia E11.65 [place] [address] [place] [id number] [place] [address] 08564- 2814 March, [facility] [address] [place] [id number] [place] [address] 51829- 7034 March, Lumbago M54.5 [place] [address] [place] [id number] [place] [address] 54673- 5783 March, [place] [address] [place] [id number] [place] [address] 35027- 8249 March, Irritable bowel syndrome with diarrhea K58.0 ; Primary insomnia F51.01 ; Type 2 diabetes mellitus with hyperglycemia E11.65 and long-term current use of insulin Z79.4 [place] [address] [place] [id number] [place] [address] 64260- 5711 March, [place] [address] [place] [id number] [place] [address] 28744- 0512 Jan, [facility] [address] [place] [id number] [place] [address] 67223- 7484 Jan, [place] [address] [place] [id number] [place] [address] 28263- 1589 Jan, [facility] [address] [place] [id number] [place] [address] 70036- 8266 Jan, [place] [address] [place] [id number] [place] [address] 93483- 3128 Jan, Dizziness R42 [facility] [address] [place] [id number] [place] [address] 33498- 0581 Jan, Bipolar affective disorder, currently depressed, mild F31.31 ; Panic disorder with agoraphobia F40.01 and Chronic post-traumatic stress disorder (PTSD) F43.12 [place] [id number] [place] [address] 56984- 4068 17 Jan, 2018 Dizziness R42 [place] [address] [place] [id number] [place] [address] 06536- 9579 11 Jan, 2018 Chest pain, unspecified type R07.9 ; Exertional dyspnea R06.09 ; Hypertension, unspecified type I10 and Hyperlipidemia, unspecified hyperlipidemia type E78.5 [place] [address] [place] [id number] [place] [address] 40058- 8257 Jan, [place] [address] [place] [id number] [place] [address] 60093- 6700 Jan, Lumbago M54.5 [place] [address] [place] [id number] [place] [address] 36281- 8995 04 Jan, 2018 El's esophageal ulceration K22.10 ; Blister (nonthermal ) of oral cavity, initial encounter S00.522A ; Local infection of the skin and subcutaneous tissue, unspecified L08.9 ; Type 2 diabetes mellitus with hyperglycemia E11.65 ; 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 and Stress incontinence N39.3 [place] [address] [place] [id number] [place] [address] 36544- 6374 27 Dec, 2017 [place] [address] [place] [id number] [place] [address] 21072- 3071 Dec, [place] [address] [place] [id number] [place] [address] 65810- 2940 Dec, [facility] [address] [place] [id number] [place] [address] [id number] 16 Dec, 2017 Dental examination Z01.20 [place] [address] [place] [id number] [place] [address] 59802- 0798 15 Dec, 2017 Acute pain of right knee M25.561 [place] [address] [place] [id number] [place] [address] 88415- 5170 14 Dec, 2017 [place] [address] [place] [id number] [place] [address] 74815- 2196 Dec, [place] [address] 02728- 8229 Dec, Lumbago M54.5 ; Acute pain of right knee M25.561 and Seasonal allergic rhinitis due to other allergic trigger J30.89 [place] [address] 57412- 6078 Dec, Type 2 diabetes mellitus with hyperglycemia E11.65 [place] [address] 35241- 3650 Dec, [place] [address] 34316- 7908 Dec, [place] [address] [place] [id number] [place] [address] 17977- 5889 Dec, [place] [address] 70537- 6432 Dec, [place] [address] [place] [id number] [place] [address] 67303- 0488 Dec, Chronic post-traumatic stress disorder (PTSD) F43.12 and Panic disorder with agoraphobia F40.01 [place] [address] [place] [id number] [place] [address] 61361- 6531 13 Dec, 2017 Low back pain M54.5 [place] [address] [place] [id number] [place] [address] 67129- 9121 12 Dec, 2017 Type 2 diabetes mellitus with hyperglycemia E11.65 ; long-term current use of insulin Z79.4 ; Low back pain M54.5 ; Other chronic pain G89.29 and Encounter for therapeutic drug level monitoring Z51.81 [place] [address] [place] [id number] [place] [address] 43023- 9184 09 Dec, 2017 Coughing R05 [place] [address] 63838- 0418 09 Dec, 2017 [facility] [address] [place] [id number] [id number] 07 Dec, 2017 Dental examination Z01.20 [place] [id number] [place] [address] 53864- 8268 Nov, Type 2 diabetes mellitus without complications E11.9 and Encounter for therapeutic drug level monitoring Z51.81 [place] [address] [place] [id number] [place] [address] 16788- 2276 Nov, [place] [address] [place] [id number] [place] [address] 89701- 8570 Oct, Type 2 diabetes mellitus without complications E11.9 [place] [address] [place] [id number] [place] [address] 01057- 0758 Oct, Type 2 diabetes mellitus with hyperglycemia E11.65 [place] [address] [place] [id number] [place] [address] 29527- 7061 Aug, Type 2 diabetes mellitus without complications E11.9 [place] [id number] [place] [address] 95619- 4284 Aug, Type 2 diabetes mellitus without complications E11.9 ; Hypoglycemia E16.2 ; Lumbago M54.5 ; Stress incontinence of urine N39.3 and History of HI (myocardial infarction) I25.2 [place] [address] [address]- 9707 Jun, [place] [address], [place] [address]- 3496 May, [place] [id number] [place] [address] 00058- 0479 Apr, Panic disorder with agoraphobia F40.01 [place] [address] [place] [id number] [place] [address] 93245- 2651 Apr, Panic disorder with agoraphobia F40.01 [place] [address] [place] [id number] [place] [address] 25761- 4615 Apr, [facility] [address], [place] [address]- 5201 March, Other chronic pain G89.29 [facility] [address], [place] [address]- 6529 March, [facility] [address] [place] [id number] [address]- 8549 March, [facility] [address] [place] [id number] [place] [address] 57783- 5083 March, [facility] [address] [place] [id number] [place] [address] 24564- 3191 March, [facility] [address] [place] [id number] [place] [address] 03779- 2372 March, Type 2 diabetes mellitus without complications E11.9 [facility] [address] [place] [id number] [place] [address] 77467- 9386 March, Diarrhea, unspecified type R19.7 [facility] [address], [place] [address]- 7074 March, Bipolar 2 disorder F31.81 ; Chronic post-traumatic stress disorder (PTSD) F43.12 and Type 2 diabetes mellitus with hyperglycemia E11.65 [facility] [address] [address]- 2454 March, [facility] [address], [place] [address]- 8155 March, [facility] [address], [place] [address]- 8994 March, Hypertension, benign I10 ; Type 2 diabetes mellitus with hyperglycemia E11.65 ; Hepatitis C B19.20 ; Gastritis and duodenitis K29.90 and Dysuria R30.0 [facility] [address], [place] [address]- 6957 March, Hypertension, benign I10 ; Type 2 diabetes mellitus with hyperglycemia E11.65 ; Hepatitis C B19.20 ; Gastritis and duodenitis K29.90 and Dysuria R30.0 [place] [address] [place] [id number] [place] [address] 61105- 1725 March, Panic disorder with agoraphobia F40.01 ; Chronic post- traumatic stress disorder (PTSD) F43.12 ; Epilepsy G40.909 and Bipolar I disorder with mood-congruent psychotic features F31.9 [facility] [address] [place] [id number] [place] [address] 77407- 2850 March, [place] [address] 30578- 6214 March, Type 2 diabetes mellitus with hyperglycemia E11.65 [place] [address] [place] [id number] [place] [address] 61527- 4119 18 Jan, 2017 Bipolar I disorder with duy F31.10 [place] [address] 56669- 4317 Jan, Bipolar 2 disorder F31.81 ; Chronic post-traumatic stress disorder (PTSD) F43.12 and Type 2 diabetes mellitus with hyperglycemia E11.65 [place] [address] [place] [id number] [place] [address] 23240- 8063 Jan, [place] [address] [place] [id number] [place] [address] 45265- 0610 17 Jan, 2017 [facility] [address] [id number] [place] [address] [id number]- [phone] 14 Jan, 2017 Panic disorder with agoraphobia F40.01 [facility] [id number] [place] [address] [id number]- 7003 13 Jan, 2017 Panic disorder with agoraphobia F40.01 ; Bipolar I disorder with mood-congruent psychotic features F31.9 ; Chronic post-traumatic stress disorder (PTSD) F43.12 and Epilepsy G40.909 [facility] [id number] [place] [address] [phone] [phone] Jan, [place] [id number] [address] Jan, [facility] [id number] [place] [address] 47036- 5170 Jan, Type 2 diabetes mellitus without complications E11.9 and Hypoglycemia E16.2 [facility] [id number] [place] [address] 94437- [phone] Jan, Type 2 diabetes mellitus without complications E11.9 ; Primary insomnia F51.01 and Hypertension, benign I10 [facility] [id number] [place] [address] 25914- 4250 Jan, [facility] [id number] [place] [address] [id number] Jan, [facility] [id number] [place] [address] 51724- 2731 Dec, Type 2 diabetes mellitus with hyperglycemia E11.65 [facility] [id number] [place] [address] 12466- 4873 Dec, [facility] [id number] [place] [address] 87488- 9347 Dec, Bipolar 2 disorder F31.81 ; Panic disorder with agoraphobia F40.01 ; Chronic post-traumatic stress disorder (PTSD) F43.12 and Epilepsy G40.909 [facility] [address] [address] 6167 Dec, [facility] [address] [address] 8884 Dec, [facility] [id number] [place] [address] 46150- 5022 Dec, Bipolar 2 disorder F31.81 ; Panic disorder with agoraphobia F40.01 ; Chronic post-traumatic stress disorder (PTSD) F43.12 and Epilepsy G40.909 [facility] [id number] [place] [address] 25923- 3802 Dec, [facility] [id number] [place] [address] 63443- 1579 Dec, [facility] [id number] [place] [address] 73670- 4640 Dec, [facility] [id number] [place] [address] 78779- 7143 Dec, Type 2 diabetes mellitus with hyperglycemia E11.65 ; 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 and Lumbago M54.5 [facility] [id number] [place] [address] 22446- 2305 Dec, [facility] [address] 57259- 5121 Dec, [facility] [address] 79793- 3393 Dec, [facility] [id number] [place] [address] 98794 -3262 Dec, Pain of left leg M79.605 and Pain in right leg M79.604 [facility] [id number] [place] [address] 01904- 0967 Dec, [facility] [id number] [place] [address] 44595- 5153 Dec, Type 2 diabetes mellitus with hyperglycemia E11.65 [facility] [id number] [place] [address] 95184- 4838 Dec, [facility] [id number] [place] [address] 19461- 6560 Dec, Type 2 diabetes mellitus with hyperglycemia E11.65 ; long-term current use of insulin Z79.4 ; Vagina, candidiasis B37.3 and Other chronic pain G89.29 [facility] [id number] [place] [address] 18906- 0495 Nov, Panic disorder with agoraphobia F40.01 [facility] [address] [address]- 3172 Nov, [facility] [id number] [place] [address] 15591- 9507 Nov, [facility] [id number] [place] [address] 77878- 7474 Nov, Hypoglycemia E16.2 [facility] [id number] [place] [address] 59582- 7228 Nov, [facility] [id number] [place] [address] 14161- 0026 Nov, [facility] [id number] [place] [address] 31222- 9181 Nov, [facility] [id number] [place] [address] 38992- 0692 Nov, Type 2 diabetes mellitus with hyperglycemia E11.65 and 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 [facility] [address] [address]- 1430 Nov, Panic disorder with agoraphobia F40.01 ; Bipolar 2 disorder F31.81 ; Chronic post-traumatic stress disorder (PTSD) F43.12 and Epilepsy G40.909 [facility] [id number] [place] [address] 81417- 5933 Nov, Panic disorder with agoraphobia F40.01 [facility] [address] [address]- 4591 Oct, [facility] [id number] [place] [address] 75416- 0279 Oct, [facility] [address], [place] [address]- 2395 Oct, Bipolar 2 disorder F31.81 ; Panic disorder with agoraphobia F40.01 and Mood disorder F39 [facility] [id number] [place] [address] 27755- 0494 Oct, Diabetes E11.9 ; Type 2 diabetes mellitus with hyperglycemia E11.65 and 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 [facility] [id number] [place] [address] 50906- 2154 Oct, [facility] [id number] [place] [address] 00378- 2747 Sep, [facility] [id number] [place] [address] 48637- 6679 Sep, Bipolar 2 disorder F31.81 and Mood disorder F39 [facility] [id number] [place] [address] 49537- 5870 Sep, [facility] [id number] [place] [address] 51101- 4099 Sep, Uncontrolled type 2 diabetes mellitus without complication, without long-term current use of insulin E11.65 [facility] [id number] [place] [address] 30217- 0389 Sep, [facility] [id number] [place] [address] 36250- 8896 Sep, [facility] [id number] [place] [address] 59804- 3703 Sep, [place] [id number] [place] [address] 52783- 7696 Sep, [facility] [id number] [place] [address] 20371- 1048 Sep, Bipolar 2 disorder F31.81 ; Chronic post-traumatic stress disorder (PTSD) F43.12 ; Panic disorder with agoraphobia F40.01 and Epilepsy G40.909 [facility] [id number] [place] [address] 87603- 3502 11 Sep, 2016 Bipolar 2 disorder F31.81 ; PTSD (post-traumatic stress disorder) F43.10 and Panic disorder with agoraphobia F40.01 [facility] [id number] [address]- 8612 Sep, [facility] [id number] [place] [address] 97285- 9591 Aug, History of seizures Z87.898 ; Panic disorder with agoraphobia F40.01 and Bipolar 2 disorder F31.81 [facility] [id number] [place] [address] 75542- 5696 Aug, [facility] [id number] [place] [address] 19836- 9547 17 Aug, 2016 [facility] [id number] [place] [address] 58165- 1929 Aug, [facility] [id number] [place] [address] 61458- 8229 Aug, [facility] [id number] [place] [address] 64120- 9858 Aug, [facility] [id number] [place] [address] 44911- 8530 Aug, [facility] [id number] [place] [address] 94630- 0629 Aug, Hypoglycemia E16.2 and Bilateral impacted cerumen H61.23 [facility] [id number] [place] [address] 24917- 3208 Aug, [facility] [id number] [place] [address] 21783- 8600 Jul, [facility] [id number] [place] [address] 54620- 3902 21 Jul, 2016 [facility] [id number] [place] [address] 35347- 2944 15 Jul, 2016 Bipolar 2 disorder F31.81 ; Panic disorder with agoraphobia F40.01 ; PTSD (post-traumatic stress disorder) F43.10 and Epilepsy G40.909 [facility] [id number] [place] [address] 95998- 3538 Jul, [facility] [id number] [place] [address] 90432- 9584 Jul, Type 2 diabetes mellitus without complications E11.9 and Coughing R05 [facility] [id number] [place] [address] 31053- 8605 Jul, [facility] [id number] [place] [address] 58003- 0225 Jun, [facility] [id number] [place] [address] 02017- 8170 Jun, Bipolar 2 disorder F31.81 ; PTSD (post-traumatic stress disorder) F43.10 and Panic disorder with agoraphobia F40.01 [facility] [id number] [place] [address] 51542- 8704 Jun, [facility] [id number] [place] [address] 95609- 5393 Jun, [facility] [id number] [place] [address] 59075- 9164 Jun, [facility] [id number] [place] [address] 48350- 9800 Jun, Type 2 diabetes mellitus without complications E11.9 and COPD (chronic obstructive pulmonary disease) J44.9 [facility] [id number] [place] [address] [id number] May, Dental examination Z01.20 and Dental caries K02.9 [facility] [id number] [place] [address] 31522- 9095 May, Bipolar 2 disorder F31.81 ; PTSD (post-traumatic stress disorder) F43.10 and Panic disorder with agoraphobia F40.01 [facility] [id number] [place] [address] 29407- 3809 May, Lumbago with sciatica, right side M54.41 ; Other chronic pain G89.29 and Uncontrolled type 2 diabetes mellitus without complication, without long-term current use of insulin E11.65 [facility] [id number] [place] [address] 30853- 2564 May, Chronic bronchitis, unspecified chronic bronchitis type J42 [facility] [id number] [place] [address] 91580- 4144 May, [facility] [address] 81198- 9708 May, [facility] [id number] [place] [address] 01839- 4885 May, Chest pain, unspecified type R07.9 ; Tobacco use Z72.0 ; Type 2 diabetes mellitus without complications E11.9 ; Essential hypertension I10 ; Hyperlipidemia, unspecified hyperlipidemia type E78.5 ; Obesity (BMI 30- 39.9) E66.9 ; History of hypothyroidism Z86.39 ; Chronic obstructive pulmonary disease, unspecified COPD type J44.9 ; Anxiety F41.9 ; Bilateral claudication of lower limb I73.9 and Bipolar 2 disorder F31.81 [facility] [id number] [place] [address] 39939- 8001 May, Bipolar 2 disorder F31.81 ; Panic disorder with agoraphobia F40.01 and Tobacco abuse Z72.0 [facility] [id number] [place] [address] 68509- 9688 Apr, [facility] [id number] [place] [address] 31861- 6433 Apr, [facility] [id number] [place] [address] 82794- 1432 Apr, [facility] [id number] [place] [address] 55756- 2681 Apr, Bipolar 2 disorder F31.81 ; Panic disorder with agoraphobia F40.01 and PTSD (post-traumatic stress disorder) F43.10 [facility] [address] [place] [address]- 7193 Apr, Chronic bronchitis, unspecified chronic bronchitis type J42 ; Cervical neuritis M54.12 and Thoracic neuritis M54.14 [facility] [id number] [place] [address] 19820- 4535 15 Apr, 2016 [place] [address] 96540- 2646 15 Apr, 2016 Cervicalgia M54.2 [place] [address] 86898- 0112 14 Apr, 2016 Bipolar 2 disorder F31.81 ; Panic disorder with agoraphobia F40.01 and PTSD (post-traumatic stress disorder) F43.10 [facility] [place] [id number] [place] [address] 08005 -9806 13 Apr, 2016 [facility] [place] [address] 42910 -7908 09 Apr, 2016 Cough R05 and Tobacco dependence F17.200 [place] [address] 34089- 2520 Apr, [place] [address] 33184- 3849 Apr, [facility] [id number] [place] [address] 76919- 8849 March, Bipolar 2 disorder F31.81 ; Panic disorder with agoraphobia F40.01 and Generalized anxiety disorder F41.1 [facility] [id number] [place] [address] 26144- 7885 March, Closed displaced fracture of fifth metatarsal bone of right foot with routine healing, subsequent encounter S92.351D [facility] [facility] [id number] [place] [address] 58868- 4269 March, Bronchitis J40 [place] [address] 23184- 3071 March, [facility] [id number] [place] [address] 78079- 6090 March, [facility] [address] 24511- 9491 March, Foot pain, right M79.671 ; Cervicalgia M54.2 and Controlled type 2 diabetes mellitus without complication, unspecified detention insulin use status E11.9 [facility] [facility] [address] 41813- 9805 March, Fracture of fifth metatarsal bone of right foot S92.351A [place] [address] 93935- 7370 March, [place] [address] 03046- 5057 Jan, Fracture of fifth metatarsal bone of right foot S92.351A [place] [address] 78700- 6573 Jan, Bipolar 2 disorder F31.81 ; PTSD (post-traumatic stress disorder) F43.10 ; Panic disorder with agoraphobia F40.01 and Epilepsy G40.909 [id number] [place] [address] 72686- 9445 Jan, History of HI (myocardial infarction) I25.2 and History of high cholesterol Z86.[address] 01490- 6208 Jan, Bipolar 2 disorder F31.81 ; Panic disorder with agoraphobia F40.01 ; Tobacco abuse Z72.0 and PTSD (post-traumatic stress disorder) F43.10 [facility] [id number] [place] [address] 00698- 9675 Jan, Fracture of fifth metatarsal bone of right foot S92.351A [place] [address] 30910- 3752 Jan, [id number] [place] [address] 52259- 2689 Jan, History of high cholesterol Z86.39 [place] [address] 37216- 2524 Jan, History of HI (myocardial infarction) I25.2 [place] [address] 65128- 5819 Jan, [place] [address] 64925- 7997 Dec, Back pain M54.9 ; Diabetes E11.9 ; Right knee pain M25.561 and Chest pain R07.9 [place] [address] 69891- 3754 Dec, [place] [address] 79239- 0916 Dec, [place] [address] 66568- 3170 Dec, Cervicalgia M54.[address] 56711- 4775 Dec, Bipolar 2 disorder F31.81 ; PTSD (post-traumatic stress disorder) F43.10 ; Panic disorder with agoraphobia F40.01 and Epilepsy G40.909 [facility] [id number] [place] [address] 10693- 0762 Dec, Bipolar 2 disorder F31.81 ; PTSD (post-traumatic stress disorder) F43.10 and Panic disorder with agoraphobia F40.01 [place] [facility] [id number] [place] [address] 93978- 6546 Dec, Diabetes E11.9 [facility] [facility] [id number] [place] [address] 04548- 1072 Dec, [facility] [id number] [place] [address] 08549- 7359 Dec, Other chronic pain G89.29 ; Hepatitis C B19.20 and History of seizures Z87.898 [facility] [address] 16724- 2186 24 Dec, 2015 [facility] [address] 87022- 9109 Dec, Bipolar 2 disorder F31.81 and Other chronic pain G89.29 [facility] [address] 38035- 9215 Dec, Cervicalgia M54.2 and Diabetes E11.9 [facility] [address] 36512- 5738 Dec, [facility] [address] 90660- 7793 Dec, [facility] [address] 73360- 1659 Dec, [facility] [address] 54182- 3709 Dec, [facility] [address] 16711- 8706 Dec, Type 2 diabetes mellitus without complications E11.9 [facility] [id number] [place] [address] 12519- 4103 10 Dec, 2015 [facility] [id number] [place] [address] 51804- 8509 09 Dec, 2015 History of seizures Z87.898 and Hepatitis C B19.20 [facility] [address] 04331- 7769 08 Dec, 2015 Hepatitis C B19.20 [facility] [address] 43030- 4836 04 Dec, 2015 [facility] [address] 62696- 1384 04 Dec, 2015 Cervicalgia M54.2 ; COPD (chronic obstructive pulmonary disease) J44.9 and Hepatitis C B19.20 [place] [facility] [id number] [place] [address] 30888- 8045 02 Dec, 2015 Bipolar 2 disorder F31.81 ; History of hypertension Z86.79 ; History of anxiety Z86.59 ; Panic disorder with agoraphobia F40.01 and Epilepsy G40.909 [place] [facility] [id number] [place] [address] 93827- 4772 Nov, [place] [address] 48812- 4153 Nov, [facility] [id number] [place] [address] 87157- 1272 Nov, History of seizures Z87.898 ; OAB (overactive bladder) N32.81 ; Lumbago M54.5 ; Other chronic pain G89.29 ; Cervicalgia M54.2 ; Tobacco abuse Z72.0 ; Tobacco abuse counseling Z71.6 and Impaired fasting glucose R73.01 [place] [facility] [id number] [place] [address] 21523- 5155 Nov, Bipolar 2 disorder F31.81 ; PTSD (post-traumatic stress disorder) F43.10 ; History of anxiety Z86.59 ; History of COPD Z87.09 ; Panic disorder with agoraphobia F40.01 and Moderate depressed bipolar I disorder F31.32 [facility] [facility] [id number] [place] [address] 55593- 3431 12 Nov, 2015 PTSD (post-traumatic stress disorder) F43.10 [facility] [id number] [place] [address] [id number] 11 Nov, 2015 Dental examination Z01.20 and Dental caries K02.9 [place] [id number] [place] [address] 76436- 6531 08 Nov, 2015 History of hypertension Z86.79 ; History of hypothyroidism Z86.39 ; History of high cholesterol Z86.39 ; History of COPD Z87.09 and Overactive bladder N32.81 [place] [id number] [place] [address] 66096- 4489 Nov, Bipolar 2 disorder F31.81 and PTSD (post-traumatic stress disorder) F43.10 [place] [id number] [place] [address] 41851- 0471 Nov, PTSD (post-traumatic stress disorder) F43.10 ; Panic disorder with agoraphobia F40.01 ; Epilepsy G40.909 and Moderate depressed bipolar I disorder F31.[address] 18730- 0905 Nov, [place] [address] 53860- 9374 Nov, [address] 54051- 2676 Oct, [place] [facility] [id number] [place] [address] 17365- 1041 Oct, Generalized anxiety disorder F41.1 ; Major depression, recurrent F33.9 and PTSD (post-traumatic stress disorder) F43.10 [place] [id number] [place] [address] 68573- 5981 Oct, Elevated fasting glucose R73.01 [place] [id number] [place] [address] 21319- 8303 Oct, Elevated fasting glucose R73.01 [place] [id number] [place] [address] 10320- 1521 Oct, History of COPD Z87.09 [place] [id number] [place] [address] 06318- 7145 15 Oct, 2015 General medical exam Z00.00 ; History of hypertension Z86.79 ; History of hypothyroidism Z86.39 ; History of hepatitis Z86.19 ; History of high cholesterol Z86.39 and History of seizures Z87.898 [facility] [id number] [address]- 5054 10 Oct, 2015 General medical exam Z00.00 ; History of hypertension Z86.79 ; History of hypothyroidism Z86.39 ; Bipolar 2 disorder F31.81 ; PTSD ( post-traumatic stress disorder) F43.10 ; History of hepatitis Z86.19 ; History of high cholesterol Z86.39 ; History of anxiety Z86.59 ; History of seizures Z87.898 ; History of HI (myocardial infarction) I25.2 and History of COPD Z87.09 [facility] [address] [address]- 8888 Oct, Generalized anxiety disorder F41.1 ; Depression F32.9 and PTSD (post-traumatic stress disorder) F43.10 [facility] [address] [address]- 5589 Jan, [facility] [address] [address]- 2319 Jan, [facility] [address] [address]- 4532 Jun, [facility] [address] [place] [id number] Jun, [facility] [address] [address]- 3477 May, [facility] [address] [address]- 8789 May, [facility] [address] [place] [id number] May, [facility] [address] [address]- 1180 May, [facility] [address] [place] [id number] May, [facility] [address] [address]- 5104 May, IMMUNIZATIONS No Known Immunizations SOCIAL HISTORY Never Assessed REASON FOR VISIT high bs PLAN OF CARE VITAL SIGNS MEDICATIONS Unknown [...] Colon Cancer 2016 Medical History diabites II Medical History Bipolar 2 disorder Surgical History tonsillectomy 1985 Surgical History partial hysterectomy 2004 Surgical History appendectomy 2004 Hospitalization History Surgery(s) only Hospitalization History pneumonia x3 days Hospitalization History Heart cath with stint 05/15/2016 Hospitalization History Diverticulitis, N/V[facility] 01/28/17
[2019-01-27 10:22] LABS: BILIRUBIN,URINE NEGATIVE (NEGATIVE); CLARITY,URINE CLEAR; COLOR,URINE YELLOW; GLUCOSE, URINE (UA) 4+ (NEGATIVE); KETONES,URINE NEGATIVE (NEGATIVE); LEUKOCYTE ESTERASE ,URINE NEGATIVE (NEGATIVE); NITRITE,URINE NEGATIVE (NEGATIVE); PH,URINE 7 (5-9); PROTEIN,URINE 1+ (NEGATIVE); UROBILINOGEN,URINE NORMAL (NORMAL)
[2019-01-27 10:28] LABS: BASOPHILS % (AUTO) 0 % (0-10); EOSINOPHILS # (AUTO) 0.1 10^3/uL (0.0-0.3); EOSINOPHILS % (AUTO) 2 % (0-10); HEMATOCRIT 42 % (35-52); HEMOGLOBIN 14.7 G/DL (11.5-16.0); LYMPHOCYTES # (AUTO) 1.1 X 10^3 (1.0-4.0); LYMPHOCYTES % (AUTO) 18 % (12-44); MEAN CORPUSCULAR HEMOGLOBIN 33 PG (25-34); MEAN CORPUSCULAR HGB CONC 35 G/DL (32-36); MEAN CORPUSCULAR VOLUME 93 FL (80-99); MEAN PLATELET VOLUME 10.4 FL (7.4-10.4); MONOCYTES # (AUTO) 0.4 X 10^3 (0.0-1.0); MONOCYTES % (AUTO) 7 % (0-12); NEUTROPHILS # (AUTO) 4.4 X 10^3 (1.8-7.8); NEUTROPHILS % (AUTO) 73 % (42-75); PLATELET COUNT 210 10^3/uL (130-400); RED CELL DISTRIBUTION WIDTH 12.3 % (10.0-14.5)
[2019-01-27 10:31] LABS: BACTERIA,URINE TRACE /HPF
[2019-01-27 10:32] LABS: YEAST,URINE FEW /HPF
[2019-01-27 10:42] LABS: ALANINE AMINOTRANSFERASE 17 U/L (0-55); ALBUMIN 4.1 GM/DL (3.2-4.5); ALKALINE PHOSPHATASE 92 U/L (40-136); BILIRUBIN,TOTAL 0.7 MG/DL (0.1-1.0); BUN/CREATININE RATIO 11; CALCIUM 9.6 MG/DL (8.5-10.1); CARBON DIOXIDE 27 MMOL/L (21-32); CHLORIDE 101 MMOL/L (98-107); CREATININE SERUM 0.83 MG/DL (0.60-1.30); GFR ESTIMATED > 60; GLUCOSE 286 MG/DL (70-105); SODIUM 135 MMOL/L (135-145); TOTAL PROTEIN 6.8 GM/DL (6.4-8.2)
[2019-01-27] MEDS ORDERED: KETOROLAC 30 MG/ML VIAL IVP ONE (10:45)
[2019-01-27] MEDS ORDERED: NS IV 1000 ML 1,000 ML IV SCH (10:45)
[2019-01-27] MEDS ORDERED: ONDANSETRON 4 MG/2 ML (SDV) Z0FRAN IVP ONE (10:45)
--- OUTSIDE RECORDS SUMMARY | 2019-01-27 10:59 | XMS REPORT | Continuity of Care Document ---
Author Author [facility] Address Unknown Phone Unavailable Allergies Active Description Code Type Severity Reaction Onset Reported/Identified Relationship to Patient Clinical Status Yes METFORMIN MODERATE ANAPHYLACTIC SHOCK Yes Penicillins [id number] Drug Allergy Unknown N/A 01/26/2017 Yes Iodinated Contrast- Oral and IV Dye [id number] Drug Allergy Unknown N/A Yes fentanyl [id number] Drug Allergy Mild GI UPSET 01/19/2019 Medications [...] 05/14/2016 PRESTON HOLLEY MD Ot Z79.899 OTHER CARE HOME (CURRENT) DRUG THERAPY 05/14/2016 PRESTON HOLLEY MD Ot R56.9 UNSPECIFIED CONVULSIONS 05/15/2016 PRESTON HOLLEY MD Ot R56.9 UNSPECIFIED CONVULSIONS 05/15/2016 PRESTON HOLLEY MD Ot R56.9 UNSPECIFIED CONVULSIONS 05/15/2016 PRESTON HOLLEY MD Ot Z79.899 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 THERAPY 05/15/2016 RENETTA KRUSE FACC, [...] FACC, ALI FACP CCDS Ot Z79.899 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 THERAPY 05/18/2016 PRESTON HOLLEY MD K Ot R56.9 UNSPECIFIED CONVULSIONS 05/28/2016 PRESTON HOLLEY MD K Ot R56.9 UNSPECIFIED CONVULSIONS 05/28/2016 PRESTON HOLLEY MD K Ot R56.9 UNSPECIFIED CONVULSIONS 05/28/2016 PRESTON HOLLEY MD K Ot Z79.899 OTHER CARE HOME (CURRENT) DRUG THERAPY 06/10/2016 RENETTA KRUSE FACC, [...] PAIN IN LEG, UNSPECIFIED 06/10/2016 RENETTA KRUSE [facility], ALI FACP CCDS Ot R07.89 OTHER CHEST PAIN 06/10/2016 RENETTA KRUSE [facility], ALI FACP CCDS Ot R60.9 EDEMA, UNSPECIFIED 06/10/2016 RENETTA KRUSE [facility], ALI FACP CCDS Ot Z68.34 BODY MASS INDEX (BMI) 34.0-34.9, ADULT 06/10/2016 RENETTA KRUSE [facility], ALI FACP CCDS Ot Z72.0 TOBACCO USE 06/10/2016 RENETTA KRUSE [facility], ALI FACP CCDS Ot Z79.899 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 THERAPY 06/30/2016 PRESTON HOLLEY MD K Ot R56.9 UNSPECIFIED CONVULSIONS 06/30/2016 PRESTON HOLLEY MD K Ot R56.9 UNSPECIFIED CONVULSIONS 07/16/2016 PRESTON HOLLEY MD K Ot R56.9 UNSPECIFIED CONVULSIONS 08/15/2016 PRESTON HOLLEY MD K Ot R56.9 UNSPECIFIED CONVULSIONS 08/15/2016 PRESTON HOLLEY MD K Ot R56.9 UNSPECIFIED CONVULSIONS 08/15/2016 PRESTON HOLLEY MD K Ot Z79.899 OTHER CARE HOME (CURRENT) DRUG THERAPY 08/15/2016 PRESTON HOLLEY MD [...] PRESTON HOLLEY MD K Ot Z79.899 OTHER CARE HOME (CURRENT) DRUG THERAPY 09/23/2016 PRESTON HOLLEY MD [...] Ot R56.9 UNSPECIFIED CONVULSIONS 01/20/2017 GLORIA WALDEN EQUINE BREEDER Ot J98.4 OTHER DISORDERS OF LUNG 01/20/2017 GLORIA WALDEN EQUINE BREEDER Ot R56.9 UNSPECIFIED CONVULSIONS 01/23/2017 PRESTON HOLLEY MD Ot R56.9 UNSPECIFIED CONVULSIONS 01/23/2017 GALA TALLEY EQUINE BREEDER Ot E11.9 TYPE 2 DIABETES MELLITUS WITHOUT COMPLIC 01/23/2017 GALA TALLEY EQUINE BREEDER Ot I10 ESSENTIAL (PRIMARY) HYPERTENSION 01/23/2017 GALA TALLEY APRN Ot J44.9 CHRONIC OBSTRUCTIVE PULMONARY DISEASE, U 01/23/2017 GALA TALLEY APRN Ot K57.32 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 01/23/2017 GALA TALLEY EQUINE BREEDER Ot R19.7 DIARRHEA, UNSPECIFIED 01/23/2017 GALA TALLEY APRN Ot Z79.84 ENTERPRISE CLOUD ARCHITECT (CURRENT) USE OF ORAL HYPOGLYC 01/23/2017 GALA TALLEY EQUINE BREEDER Ot Z79.899 OTHER CARE HOME (CURRENT) DRUG THERAPY 01/25/2017 GALA TALLEY EQUINE BREEDER Ot E11.9 TYPE 2 DIABETES MELLITUS WITHOUT COMPLIC 01/25/2017 GALA TALLEY EQUINE BREEDER Ot I10 ESSENTIAL (PRIMARY) HYPERTENSION 01/25/2017 GALA TALLEY EQUINE BREEDER Ot J44.9 CHRONIC OBSTRUCTIVE PULMONARY DISEASE, U 01/25/2017 GALA TALLEY EQUINE BREEDER Ot K57.32 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 01/25/2017 GALA TALLEY EQUINE BREEDER Ot R19.7 DIARRHEA, UNSPECIFIED 01/25/2017 GALA TALLYE EQUINE BREEDER Ot Z79.84 ENTERPRISE CLOUD ARCHITECT (CURRENT) USE OF ORAL HYPOGLYC 01/25/2017 GALA TALLEY EQUINE BREEDER Ot Z79.899 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 THERAPY 01/27/2017 STIVEN RAYMOND MD [...] ABS 01/27/2017 STIVEN RAYMOND MD Ot Z79.84 CARE HOME (CURRENT) USE OF ORAL HYPOGLYC 01/27/2017 STIVEN [...] 01/27/2017 SEGUNDO KRUSE, STIVEN Samayoa Ot Z79.84 ENTERPRISE CLOUD ARCHITECT (CURRENT) USE OF ORAL HYPOGLYC 01/29/2017 GALA TALLEY APRN Ot E11.9 TYPE 2 DIABETES MELLITUS WITHOUT COMPLIC 01/29/2017 GALA TALLEY EQUINE BREEDER Ot I10 ESSENTIAL (PRIMARY) HYPERTENSION 01/29/2017 GALA TALLEY APRN Ot J44.9 CHRONIC OBSTRUCTIVE PULMONARY DISEASE, U 01/29/2017 GALA TALLEY APRN Ot K57.32 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 01/29/2017 GALA TALLEY APRN Ot R19.7 DIARRHEA, UNSPECIFIED 01/29/2017 GALA TALLEY APRN Ot Z79.84 CARE HOME (CURRENT) USE OF ORAL HYPOGLYC 01/29/2017 GALA TALLEY APRN Ot Z79.899 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 THERAPY 02/12/2017 GLORIA WALDEN APRN [...] UNSPECIFIED 03/21/2017 GALA TALLEY APRN Ot Z79.4 CARE HOME (CURRENT) USE OF INSULIN 03/21/2017 GALA TALLEY APRN Ot Z79.82 ENTERPRISE CLOUD ARCHITECT (CURRENT) USE OF ASPIRIN 03/21/2017 GALA TALLEY APRN Ot Z79.899 OTHER CARE HOME (CURRENT) DRUG THERAPY 03/23/2017 GALA TALLEY APRN Ot E11.9 TYPE 2 DIABETES MELLITUS WITHOUT COMPLIC 03/23/2017 GALA TALLEY EQUINE BREEDER Ot F17.210 NICOTINE DEPENDENCE, CIGARETTES, UNCOMPL 03/23/2017 GALA TALLEY EQUINE BREEDER Ot I10 ESSENTIAL (PRIMARY) HYPERTENSION 03/23/2017 GALA TALLEY APRN Ot J44.9 CHRONIC OBSTRUCTIVE PULMONARY DISEASE, U 03/23/2017 GALA TALLEY APRN Ot K52.9 NONINFECTIVE GASTROENTERITIS AND COLITIS 03/23/2017 GALA TALLEY APRN Ot K57.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 03/23/2017 GALA TALLEY APRN Ot R19.7 DIARRHEA, UNSPECIFIED 03/23/2017 GALA TALLEY APRN Ot Z79.4 ENTERPRISE CLOUD ARCHITECT (CURRENT) USE OF INSULIN 03/23/2017 GALA TALLEY APRN Ot Z79.82 ENTERPRISE CL[employer] ARCHITECT (CURRENT) USE OF ASPIRIN 03/23/2017 GALA TALLEY APRN Ot Z79.899 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 THERAPY 03/24/2017 GALA TALLEY APRN Ot E11.9 TYPE 2 DIABETES MELLITUS WITHOUT COMPLIC 03/24/2017 GALA TLALEY APRN Ot I10 ESSENTIAL (PRIMARY) HYPERTENSION 03/24/2017 GALA TALLEY APRN Ot J44.9 CHRONIC OBSTRUCTIVE PULMONARY DISEASE, U 03/24/2017 GALA TALLEY APRN Ot R07.9 CHEST PAIN, UNSPECIFIED 03/24/2017 GALA TALLEY APRN Ot Z79.4 ENTERPRISE CLOUD ARCHITECT (CURRENT) USE OF INSULIN 03/24/2017 GALA TALLEY APRN Ot Z79.82 ENTERPRISE CLOU[employer] ARCHITECT (CURRENT) USE OF ASPIRIN 03/24/2017 GALA TALLEY EQUINE BREEDER Ot Z79.899 OTHER CARE HOME (CURRENT) DRUG THERAPY 03/26/2017 GALA TALLEY APRN Ot E11.9 TYPE 2 DIABETES MELLITUS WITHOUT COMPLIC 03/26/2017 GALA TALLEY EQUINE BREEDER Ot I10 ESSENTIAL (PRIMARY) HYPERTENSION 03/26/2017 GALA TALLEY APRN Ot J44.9 CHRONIC OBSTRUCTIVE PULMONARY DISEASE, U 03/26/2017 GALA TALLEY APRN Ot R07.9 CHEST PAIN, UNSPECIFIED 03/26/2017 GALA TALLEY EQUINE BREEDER Ot Z79.4 CARE HOME (CURRENT) USE OF INSULIN 03/26/2017 GALA TALLEY APRN Ot Z79.82 CARE HOME (CURRENT) USE OF ASPIRIN 03/26/2017 GALA TALLEY APRN Ot Z79.899 OTHER CARE HOME (CURRENT) DRUG THERAPY 03/27/2017 GALA TALLEY EQUINE BREEDER Ot E11.9 TYPE 2 DIABETES MELLITUS WITHOUT COMPLIC 03/27/2017 GALA TALLEY EQUINE BREEDER Ot I10 ESSENTIAL (PRIMARY) HYPERTENSION 03/27/2017 GALA TALLEY APRN Ot J44.9 CHRONIC OBSTRUCTIVE PULMONARY DISEASE, U 03/27/2017 GALA TALLEY EQUINE BREEDER Ot R07.9 CHEST PAIN, UNSPECIFIED 03/27/2017 GALA TALLEY APRN Ot Z79.4 ENTERPRISE CLOUD ARCHITECT (CURRENT) USE OF INSULIN 03/27/2017 GALA TALLEY APRN Ot Z79.82 ENTERPRISE CLOUD ARCHITECT (CURRENT) USE OF ASPIRIN 03/27/2017 GALA TALLEY APRN Ot Z79.899 OTHER CARE HOME (CURRENT) DRUG THERAPY 03/28/2017 TYLER CHUNG MD [...] HYPERHIDROSIS 03/28/2017 TYLER CHUNG MD Ot Z79.82 ENTERPRISE CLOUD ARCHITECT (CURRENT) USE OF ASPIRIN 03/28/2017 TYLER CHUNG MD Ot Z79.899 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 THERAPY 03/30/2017 DEVI DO JOSSELIN [...] K Ot R06.4 HYPERVENTILATION 03/30/2017 DEVI DO, JOSSELNI K Ot R19.7 DIARRHEA, UNSPECIFIED 03/30/2017 DEVI DO, JOSSELIN K Ot Z79.4 ENTERPRISE CLOUD ARCHITECT (CURRENT) USE OF INSULIN 03/30/2017 DEVI DO, JOSSELIN K Ot Z79.82 CARE HOME (CURRENT) USE OF ASPIRIN 04/02/2017 GALA TALLEY [...] UNSPECIFIED 04/02/2017 GALA TALLEY APRN Ot Z79.4 ENTERPRISE CLOUD ARCHITECT (CURRENT) USE OF INSULIN 04/02/2017 GALA TALLEY APRN Ot Z79.82 ENTERPRISE CLOUD ARCHITECT (CURRENT) USE OF ASPIRIN 04/02/2017 GALA TALLEY APRN Ot Z79.899 OTHER CARE HOME (CURRENT) DRUG THERAPY 04/02/2017 DEVI DO, JOSSELIN K Ot E11.9 TYPE 2 DIABETES MELLITUS WITHOUT COMPLIC 04/02/2017 DEVI DO, JOSESLIN K Ot F17.210 NICOTINE DEPENDENCE, CIGARETTES, UNCOMPL [...] 04/02/2017 DEVI DO, JOSSELIN K Ot Z79.4 CARE HOME (CURRENT) USE OF INSULIN 04/02/2017 RONEN QUINONEZ DOA K Ot Z79.82 CARE HOME (CURRENT) USE OF ASPIRIN 04/03/2017 TYLER CHUNG [...] HYPERHIDROSIS 04/03/2017 TYLER CHUNG MD Ot Z79.82 CARE HOME (CURRENT) USE OF ASPIRIN 04/03/2017 TYLER CHUNG MD Ot Z79.899 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 THERAPY 04/19/2017 GLORIA WALDEN APRN [...] HYPERHIDROSIS 06/27/2017 TYLER CHUNG MD Ot Z79.82 CARE HOME (CURRENT) USE OF ASPIRIN 06/27/2017 TYLER CHUNG MD Ot Z79.899 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 THERAPY 07/01/2017 TYLER CHUNG MD [...] HYPERHIDROSIS 07/01/2017 TYLER CHUNG MD Ot Z79.82 ENTERPRISE CL[employer] ARCHITECT (CURRENT) USE OF ASPIRIN 07/01/2017 TYLER CHUNG MD Ot Z79.899 OTHER CARE HOME (CURRENT) DRUG THERAPY 01/24/2018 PRESTON HOLLEY MD Ot R56.9 UNSPECIFIED CONVULSIONS 01/24/2018 PRESTON HOLLEY MD Ot R56.9 UNSPECIFIED CONVULSIONS 01/24/2018 PRESTON HOLLEY MD Ot Z79.899 OTHER CARE HOME (CURRENT) DRUG THERAPY 01/24/2018 PRESTON HOLLEY MD [...] DIARRHEA, UNSPECIFIED 01/24/2018 JACKY CORONEL Ot Z79.4 ENTERPRISE [employer] ARCHITECT (CURRENT) USE OF INSULIN 01/24/2018 JACKY CORONEL Ot Z79.82 CARE HOME (CURRENT) USE OF ASPIRIN 01/24/2018 JACKY CORONEL [...] 01/24/2018 PRESTON HOLLEY MD Ot Z79.899 OTHER CARE HOME (CURRENT) DRUG THERAPY 01/24/2018 PRESTON HOLLEY MD [...] DIARRHEA, UNSPECIFIED 01/26/2018 JACKY CORONEL Ot Z79.4 ENTERPRISE CL[employer] ARCHITECT (CURRENT) USE OF INSULIN 01/26/2018 JACKY CORONEL Ot Z79.82 ENTERPRISE [employer] ARCHITECT (CURRENT) USE OF ASPIRIN 01/26/2018 JACKY CORONEL [...] 491.20 OBSTRUCTIVE CHRONIC BRONCHITIS, WITHOUT EXACERBATION 01/26/2018 BUSHAR SINGH 786.05 SHORTNESS OF BREATH 01/26/2018 BUSHRA [...] OBSTRUCTION 02/02/2018 MALLY BRITO DO Ot Z79.4 CARE HOME (CURRENT) USE OF INSULIN 02/02/2018 MALLY BRITO DO Ot Z79.82 CARE HOME (CURRENT) USE OF ASPIRIN 02/02/2018 MALLY BRITO DO Ot Z79.899 OTHER CARE HOME (CURRENT) DRUG THERAPY 02/02/2018 MALLY BRITO DO [...] OBSTRUCTION 02/04/2018 MALLY BRITO DO Ot Z79.4 ENTERPRISE CLOUD ARCHITECT (CURRENT) USE OF INSULIN 02/04/2018 MALLY BRITO DO Ot Z79.82 CARE HOME (CURRENT) USE OF ASPIRIN 02/04/2018 MALLY BRITO DO Ot Z79.899 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 THERAPY 02/04/2018 MALLY BRITO DO Ot Z80.0 FAMILY HISTORY OF MALIGNANT NEOPLASM OF 02/04/2018 MALLY BRITO DO Ot Z88.0 ALLERGY STATUS TO PENICILLIN 02/04/2018 MALLY BRITO DO Ot Z88.5 ALLERGY STATUS TO NARCOTIC AGENT STATUS 02/10/2018 PRESTON HOLLEY MD Ot R56.9 UNSPECIFIED CONVULSIONS 02/10/2018 PRESTON HOLLEY MD Ot R56.9 UNSPECIFIED CONVULSIONS 02/10/2018 PRESTON HOLLEY MD Ot Z79.899 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 THERAPY 02/10/2018 PRESTON HOLLEY MD [...] 02/10/2018 PRESTON HOLLEY MD Ot Z79.899 OTHER CARE HOME (CURRENT) DRUG THERAPY 02/10/2018 PRESTON HOLLEY MD [...] Ot R56.9 UNSPECIFIED CONVULSIONS 02/24/2018 KARTHIK WARD APPETIZER PACKER Ot E78.5 HYPERLIPIDEMIA, UNSPECIFIED 02/24/2018 KARTHIK WARD APPETIZER PACKER Ot I10 ESSENTIAL (PRIMARY) HYPERTENSION 02/24/2018 KARTHIK WARD APPETIZER PACKER Ot R06.09 OTHER FORMS OF DYSPNEA 02/24/2018 KARTHIK WARD APPETIZER PACKER Ot R07.9 CHEST PAIN, UNSPECIFIED 02/26/2018 MALLY BRITO DO Ot R19.7 DIARRHEA, UNSPECIFIED 03/09/2018 GLORIA WALDEN APRN Ot J45.909 UNSPECIFIED ASTHMA, UNCOMPLICATED 03/09/2018 GLORIA WALDEN EQUINE BREEDER Ot Z72.0 TOBACCO USE 03/09/2018 BRITO DO, MALLY D Ot R19.7 DIARRHEA, UNSPECIFIED 03/14/2018 GLORIA WALDEN APRN Ot J45.909 UNSPECIFIED ASTHMA, UNCOMPLICATED 03/14/2018 GLORIA WALDEN APRN Ot Z72.0 TOBACCO USE 03/15/2018 PRESTON HOLLEY MD Ot R56.9 UNSPECIFIED CONVULSIONS 03/15/2018 PRESTON HOLLEY MD Ot R56.9 UNSPECIFIED CONVULSIONS 03/15/2018 PRESTON HOLLEY MD Ot Z79.899 OTHER CARE HOME (CURRENT) DRUG THERAPY 03/15/2018 PRESTON HOLLEY MD [...] Ot R56.9 UNSPECIFIED CONVULSIONS 03/15/2018 KARTHIK WARD APPETIZER PACKER Ot E78.5 HYPERLIPIDEMIA, UNSPECIFIED 03/15/2018 KARTHIK WARD APPETIZER PACKER Ot I10 ESSENTIAL (PRIMARY) HYPERTENSION 03/15/2018 KARTHIK WARD APPETIZER PACKER Ot R06.09 OTHER FORMS OF DYSPNEA 03/15/2018 KARTHIK WARD APPETIZER PACKER Ot R07.9 CHEST PAIN, UNSPECIFIED 03/15/2018 BRITO DO, MALLY D Ot R19.7 DIARRHEA, UNSPECIFIED 03/15/2018 GLORIA WALDEN APRN Ot J45.909 UNSPECIFIED ASTHMA, UNCOMPLICATED 03/15/2018 GLORIA WALDEN APRN Ot Z72.0 TOBACCO USE 03/16/2018 KARTHIK WARD APPETIZER PACKER Ot E78.5 HYPERLIPIDEMIA, UNSPECIFIED 03/16/2018 BAIKARTHIK REYNOSO APPETIZER PACKER Ot I10 ESSENTIAL (PRIMARY) HYPERTENSION 03/16/2018 BAIKARTHIK REYNOSO APPETIZER PACKER Ot R06.09 OTHER FORMS OF DYSPNEA 03/16/2018 BAIKARTHIK REYNOSO APPETIZER PACKER Ot R07.9 CHEST PAIN, UNSPECIFIED 03/17/2018 DEVI [...] 03/17/2018 DEVI DO, JOSSELIN K Ot Z79.4 CARE HOME (CURRENT) USE OF INSULIN 03/17/2018 DEVI JOSSELIN K Ot Z79.51 ENTERPRISE CLOUD ARCHITECT (CURRENT) USE OF INHALED STERO 03/17/2018 DEVI JOSSELIN K Ot Z79.82 ENTERPRISE CLOUD ARCHITECT (CURRENT) USE OF ASPIRIN 03/17/2018 DEVI JOSSELIN [...] UNSPECIFIED 03/22/2018 DEVI JOSSELIN K Ot Z79.4 CARE HOME (CURRENT) USE OF INSULIN 03/22/2018 DEVI JOSSELIN K Ot Z79.51 CARE HOME (CURRENT) USE OF INHALED STERO 03/22/2018 DEVI JOSSELIN K Ot Z79.82 CARE HOME (CURRENT) USE OF ASPIRIN 03/22/2018 DEVI JOSSELIN [...] RADIOGRAPHIC DYE ALLERGY STATUS 03/22/2018 GLORIA WALDEN EQUINE BREEDER Ot J45.909 UNSPECIFIED ASTHMA, UNCOMPLICATED 03/22/2018 GLORIA WALDEN EQUINE BREEDER Ot J45.909 UNSPECIFIED ASTHMA, UNCOMPLICATED 03/24/2018 GLORIA [...] UNSPECIFIED 03/31/2018 BUSHRA WHITEHEAD MD Ot Z79.4 CARE HOME (CURRENT) USE OF INSULIN 03/31/2018 BUSHRA WHITEHEAD MD, Ot Z79.51 ENTERPRISE CLOUD ARCHITECT (CURRENT) USE OF INHALED STERO 03/31/2018 BUSHRA WHITEHEAD MD, Ot Z79.52 ENTERPRISE CLOUD ARCHITECT (CURRENT) USE OF SYSTEMIC STER 03/31/2018 BUSHRA WHITEHEAD MD, Ot Z79.82 ENTERPRISE CLOUD ARCHITECT (CURRENT) USE OF ASPIRIN 03/31/2018 BUSHRA WHITEHEAD [...] UNSPECIFIED 04/02/2018 BUSHRA WHITEHEAD MD, Ot Z79.4 ENTERPRISE CLOUD ARCHITECT (CURRENT) USE OF INSULIN 04/02/2018 BUSHRA WHITEHEAD MD, Ot Z79.51 CARE HOME (CURRENT) USE OF INHALED STERO 04/02/2018 BUSHRA WHITEHEAD MD, Ot Z79.52 ENTERPRISE CLOUD ARCHITECT (CURRENT) USE OF SYSTEMIC STER 04/02/2018 BUSHRA WHITEHEAD MD, Ot Z79.82 ENTERPRISE CLOUD ARCHITECT (CURRENT) USE OF ASPIRIN 04/02/2018 BUSHRA WHITEHEAD [...] 06/21/2018 PRESTON HOLLEY MD Ot Z79.899 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 THERAPY 06/21/2018 PRESTON HOLLEY MD [...] MD Ot R56.9 UNSPECIFIED CONVULSIONS 06/21/2018 GLORIA WALEDN EQUINE BREEDER Ot J98.4 OTHER DISORDERS OF LUNG 06/21/2018 GLORIA WALDEN EQUINE BREEDER Ot R56.9 UNSPECIFIED CONVULSIONS 06/21/2018 KARTHIK WARD APPETIZER PACKER Ot E78.5 HYPERLIPIDEMIA, UNSPECIFIED 06/21/2018 KARTHIK WARD L APPETIZER PACKER Ot I10 ESSENTIAL (PRIMARY) HYPERTENSION 06/21/2018 KARTHIK WARD APPETIZER PACKER Ot R06.09 OTHER FORMS OF DYSPNEA 06/21/2018 KARTHIK WARD APPETIZER PACKER Ot R07.9 CHEST PAIN, UNSPECIFIED 06/21/2018 MALLY BRITO DO Ot R19.7 DIARRHEA, UNSPECIFIED 06/21/2018 GLORIA WALDEN EQUINE BREEDER Ot J45.909 UNSPECIFIED ASTHMA, UNCOMPLICATED 06/21/2018 GLORIA WALDEN EQUINE BREEDER Ot Z72.0 TOBACCO USE 06/21/2018 GLORIA WALDEN EQUINE BREEDER Ot R91.8 OTHER NONSPECIFIC ABNORMAL FINDING OF GUSTAVO 06/21/2018 GLORIA WALDEN EQUINE BREEDER Ot Z72.0 TOBACCO USE 06/22/2018 GLORIA WALDEN EQUINE BREEDER Ot R91.8 OTHER NONSPECIFIC ABNORMAL FINDING OF GUSTAVO 07/02/2018 GLORIA WALDEN EQUINE BREEDER Ot R91.8 OTHER NONSPECIFIC ABNORMAL FINDING OF GUSTAVO 07/05/2018 KAMILLE CHAVEZ DO Ot Z01.818 ENCOUNTER FOR OTHER PREPROCEDURAL EXAMIN 07/20/2018 PRESTON HOLLEY MD Ot R56.9 UNSPECIFIED CONVULSIONS 07/20/2018 PRESTON HOLLEY MD Ot R56.9 UNSPECIFIED CONVULSIONS 07/20/2018 PRESTON HOLLEY MD Ot Z79.899 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 THERAPY 07/20/2018 PRESTON HOLLEY MD [...] Ot R56.9 UNSPECIFIED CONVULSIONS 07/20/2018 GLORIA WALDEN EQUINE BREEDER Ot J98.4 OTHER DISORDERS OF LUNG 07/20/2018 GLORIA WALDEN EQUINE BREEDER Ot R56.9 UNSPECIFIED CONVULSIONS 07/20/2018 KARTHIK WARD APPETIZER PACKER Ot E78.5 HYPERLIPIDEMIA, UNSPECIFIED 07/20/2018 KARTHIK WARD L APPETIZER PACKER Ot I10 ESSENTIAL (PRIMARY) HYPERTENSION 07/20/2018 KARTHIK WARD L APPETIZER PACKER Ot R06.09 OTHER FORMS OF DYSPNEA 07/20/2018 CESARIOMAJOLYNNKARTHIK L APPETIZER PACKER Ot R07.9 CHEST PAIN, UNSPECIFIED 07/20/2018 MALLY BRITO DO Ot R19.7 DIARRHEA, UNSPECIFIED 07/20/2018 GLORIA WALDEN EQUINE BREEDER Ot J45.909 UNSPECIFIED ASTHMA, UNCOMPLICATED 07/20/2018 GLORIA WALDEN APRN Ot Z72.0 TOBACCO USE 07/20/2018 GLORIA WALDEN EQUINE BREEDER Ot R91.8 OTHER NONSPECIFIC ABNORMAL FINDING OF GUSTAVO 07/20/2018 GLORIA WALDEN EQUINE BREEDER Ot Z72.0 TOBACCO USE 07/20/2018 GLORIA WALDEN EQUINE BREEDER Ot R91.8 OTHER NONSPECIFIC ABNORMAL FINDING OF GUSTAVO 07/20/2018 KAMILLE CHAVEZ DO Ot Z01.818 ENCOUNTER FOR OTHER PREPROCEDURAL EXAMIN 01/12/2019 PRESTON HOLLEY MD Ot R56.9 UNSPECIFIED CONVULSIONS 01/12/2019 PRESTON HOLLEY MD Ot R56.9 UNSPECIFIED CONVULSIONS 01/12/2019 PRESTON HOLLEY MD Ot Z79.899 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 THERAPY 01/12/2019 PRESTON HOLLEY MD [...] Ot R56.9 UNSPECIFIED CONVULSIONS 01/12/2019 KARTHIK WARD APPETIZER PACKER Ot E78.5 HYPERLIPIDEMIA, UNSPECIFIED 01/12/2019 KARTHIK WARD APPETIZER PACKER Ot I10 ESSENTIAL (PRIMARY) HYPERTENSION 01/12/2019 KARTHIK WARD APPETIZER PACKER Ot R06.09 OTHER FORMS OF DYSPNEA 01/12/2019 KARTHIK WARD APPETIZER PACKER Ot R07.9 CHEST PAIN, UNSPECIFIED 01/12/2019 MALLY BRITO DO Ot R19.7 DIARRHEA, UNSPECIFIED 01/12/2019 GLORIA WALDEN APRN Ot J45.909 UNSPECIFIED ASTHMA, UNCOMPLICATED 01/12/2019 GLORIA WALDEN APRN Ot Z72.0 TOBACCO USE 01/12/2019 GLORIA WALDEN APRN Ot R91.8 OTHER NONSPECIFIC ABNORMAL FINDING OF GUSTAVO 01/12/2019 GLORIA WALDEN APRN Ot Z72.0 TOBACCO USE 01/12/2019 GLORIA WALDEN EQUINE BREEDER Ot R91.8 OTHER NONSPECIFIC ABNORMAL FINDING OF GUSTAVO 01/12/2019 KAMILLE CHAVEZ DO Ot Z01.818 ENCOUNTER FOR OTHER PREPROCEDURAL EXAMIN 01/14/2019 PRESTON HOLLEY MD Ot R56.9 UNSPECIFIED CONVULSIONS 01/14/2019 PRESTON HOLLEY MD Ot R56.9 UNSPECIFIED CONVULSIONS 01/14/2019 PRESTON HOLLEY MD Ot Z79.899 OTHER CARE HOME (CURRENT) DRUG THERAPY 01/14/2019 PRESTON HOLLEY MD [...] Ot R56.9 UNSPECIFIED CONVULSIONS 01/14/2019 GLORIA WALDEN EQUINE BREEDER Ot J98.4 OTHER DISORDERS OF LUNG 01/14/2019 GLORIA WALDEN EQUINE BREEDER Ot R56.9 UNSPECIFIED CONVULSIONS 01/14/2019 KARTHIK WARD APPETIZER PACKER Ot E78.5 HYPERLIPIDEMIA, UNSPECIFIED 01/14/2019 KARTHIK WARD L APPETIZER PACKER Ot I10 ESSENTIAL (PRIMARY) HYPERTENSION 01/14/2019 KARTHIK WARD APPETIZER PACKER Ot R06.09 OTHER FORMS OF DYSPNEA 01/14/2019 KARTHIK WARD L APPETIZER PACKER Ot R07.9 CHEST PAIN, UNSPECIFIED 01/14/2019 MALLY BRITO DO Ot R19.7 DIARRHEA, UNSPECIFIED 01/14/2019 GLORIA WALDEN EQUINE BREEDER Ot J45.909 UNSPECIFIED ASTHMA, UNCOMPLICATED 01/14/2019 GLORIA WALDEN EQUINE BREEDER Ot Z72.0 TOBACCO USE 01/14/2019 GLORIA WALDEN EQUINE BREEDER Ot R91.8 OTHER NONSPECIFIC ABNORMAL FINDING OF GUSTAVO 01/14/2019 GLORIA WALDEN EQUINE BREEDER Ot Z72.0 TOBACCO USE 01/14/2019 IRAM GLORIA Stephanie EQUINE BREEDER Ot R91.8 OTHER NONSPECIFIC ABNORMAL FINDING OF GUSTAVO 01/14/2019 KAMILLE CHAVEZ DO Ot Z01.818 ENCOUNTER FOR OTHER PREPROCEDURAL EXAMIN 01/16/2019 RANI WALDENINE E EQUINE BREEDER Ot C34.90 MALIGNANT NEOPLASM OF UNSP PART OF UNSP 01/16/2019 RANI WALDENINE E EQUINE BREEDER Ot G47.10 HYPERSOMNIA, UNSPECIFIED 01/16/2019 IRAM GLORIA E EQUINE BREEDER Ot J45.909 UNSPECIFIED ASTHMA, UNCOMPLICATED 01/16/2019 IRAM, GLORIA E EQUINE BREEDER Ot J98.4 OTHER DISORDERS OF LUNG 01/16/2019 IRAMRANI LIZARRAGAINE Stephanie EQUINE BREEDER Ot Z72.0 TOBACCO USE 01/18/2019 RANI WALDENINE Stephanie EQUINE BREEDER Ot G47.10 HYPERSOMNIA, UNSPECIFIED 01/18/2019 RANI WALDENINE Stephanie EQUINE BREEDER Ot J45.909 UNSPECIFIED ASTHMA, UNCOMPLICATED 01/18/2019 RANI WALDENINE E EQUINE BREEDER Ot J98.4 OTHER DISORDERS OF LUNG 01/18/2019 RANI WALDENINE Stephanie EQUINE BREEDER Ot R06.00 DYSPNEA, UNSPECIFIED 01/18/2019 RANI WALDENINE Stephanie EQUINE BREEDER Ot Z72.0 TOBACCO USE 01/19/2019 RANI WALDENINE Stephanie EQUINE BREEDER Ot J98.4 OTHER DISORDERS OF LUNG 01/19/2019 RANI WALDENINE E EQUINE BREEDER Ot R56.9 UNSPECIFIED CONVULSIONS 01/19/2019 KAMILLE CHAVEZ DO Ot Z01.818 ENCOUNTER FOR OTHER PREPROCEDURAL EXAMIN 01/20/2019 KAMILLE CHAVEZ DO Ot Z01.818 ENCOUNTER FOR OTHER PREPROCEDURAL EXAMIN 01/25/2019 PRESTON HOLLEY MD Ot R56.9 UNSPECIFIED CONVULSIONS 01/25/2019 PRESTON HOLLEY MD Ot R56.9 UNSPECIFIED CONVULSIONS 01/25/2019 PRESTON HOLLEY MD Ot Z79.899 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 THERAPY 01/25/2019 PRESTON HOLLEY MD [...] Ot R56.9 UNSPECIFIED CONVULSIONS 01/25/2019 GLORIA WALDEN EQUINE BREEDER Ot J98.4 OTHER DISORDERS OF LUNG 01/25/2019 GLORIA WALDEN APRN Ot R56.9 UNSPECIFIED CONVULSIONS 01/25/2019 KARTHIK WARD APPETIZER PACKER Ot E78.5 HYPERLIPIDEMIA, UNSPECIFIED 01/25/2019 BAIMA KARTHIK L APPETIZER PACKER Ot I10 ESSENTIAL (PRIMARY) HYPERTENSION 01/25/2019 KARTHIK WARD APPETIZER PACKER Ot R06.09 OTHER FORMS OF DYSPNEA 01/25/2019 CESARIOMA KARTHIK L APPETIZER PACKER Ot R07.9 CHEST PAIN, UNSPECIFIED 01/25/2019 MALLY [...] Ot G47.10 HYPERSOMNIA, UNSPECIFIED 01/25/2019 GLORIA WALDEN EQUINE BREEDER Ot J45.909 UNSPECIFIED ASTHMA, UNCOMPLICATED 01/25/2019 GLORIA WALDEN EQUINE BREEDER Ot J98.4 OTHER DISORDERS OF LUNG 01/25/2019 IRAM, GLORIA E EQUINE BREEDER Ot R06.00 DYSPNEA, UNSPECIFIED 01/25/2019 GLORIA WALDEN EQUINE BREEDER Ot Z72.0 TOBACCO USE 01/25/2019 GLORIA WALDEN EQUINE BREEDER Ot C34.90 MALIGNANT NEOPLASM OF UNSP PART OF UNSP 01/25/2019 GLORIA WALDEN EQUINE BREEDER Ot G47.10 HYPERSOMNIA, UNSPECIFIED 01/25/2019 GLORIA WALDEN APRN Ot J45.909 UNSPECIFIED ASTHMA, UNCOMPLICATED 01/25/2019 GLORIA WALDEN EQUINE BREEDER Ot J98.4 OTHER DISORDERS OF LUNG 01/25/2019 GLORIA WALDEN APRN Ot Z72.0 TOBACCO USE 01/26/2019 PRESTON HOLLEY MD Ot R56.9 UNSPECIFIED CONVULSIONS 01/26/2019 PRESTON HOLLEY MD Ot R56.9 UNSPECIFIED CONVULSIONS 01/26/2019 PRESTON HOLLEY MD K Ot Z79.899 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 THERAPY 01/26/2019 PRESTON HOLLEY MD K Ot R56.9 UNSPECIFIED CONVULSIONS 01/26/2019 KAMILLE CHAVEZ DO Ot E66.9 OBESITY, UNSPECIFIED 01/26/2019 KAMILLE CHAVEZ DO Ot J44.9 CHRONIC OBSTRUCTIVE PULMONARY DISEASE, U 01/26/2019 KAMILLE CHAVEZ DO Ot Z72.0 TOBACCO USE 01/26/2019 KAMILLE CHAVEZ DO Ot E66.9 OBESITY, UNSPECIFIED 01/26/2019 KAMILLE CHAVEZ DO Ot J43.9 EMPHYSEMA, UNSPECIFIED 01/26/2019 KAMILLE CHAVEZ DO Ot Z72.0 TOBACCO USE 01/26/2019 PRESTON HOLLEY MD K Ot R56.9 UNSPECIFIED CONVULSIONS 01/26/2019 GLORIA WALDEN EQUINE BREEDER Ot J98.4 OTHER DISORDERS OF LUNG 01/26/2019 GLORIA WALDEN EQUINE BREEDER Ot R56.9 UNSPECIFIED CONVULSIONS 01/26/2019 KARTHIK WARD APPETIZER PACKER Ot E78.5 HYPERLIPIDEMIA, UNSPECIFIED 01/26/2019 KARTHIK WARD L APPETIZER PACKER Ot I10 ESSENTIAL (PRIMARY) HYPERTENSION 01/26/2019 KARTHIK WARD APPETIZER PACKER Ot R06.09 OTHER FORMS OF DYSPNEA 01/26/2019 ED KARTHIK Shelley APPETIZER PACKER Ot R07.9 CHEST PAIN, UNSPECIFIED 01/26/2019 MALLY BRITO DO Ot R19.7 DIARRHEA, UNSPECIFIED 01/26/2019 GLORIA WALDEN EQUINE BREEDER Ot J45.909 UNSPECIFIED ASTHMA, UNCOMPLICATED 01/26/2019 GLORIA WALDEN EQUINE BREEDER Ot Z72.0 TOBACCO USE 01/26/2019 GLORIA WALDEN EQUINE BREEDER Ot R91.8 OTHER NONSPECIFIC ABNORMAL FINDING OF GUSTAVO 01/26/2019 GLORIA WALDEN EQUINE BREEDER Ot Z72.0 TOBACCO USE 01/26/2019 GLORIA WALDEN EQUINE BREEDER Ot R91.8 OTHER NONSPECIFIC ABNORMAL FINDING OF GUSTAVO 01/26/2019 SIN CHAVEZ DOSON Stewart Ot Z01.818 ENCOUNTER FOR OTHER PREPROCEDURAL EXAMIN 01/26/2019 GLORIA WALDEN EQUINE BREEDER Ot G47.10 HYPERSOMNIA, UNSPECIFIED 01/26/2019 GLORIA WALDEN EQUINE BREEDER Ot J45.909 UNSPECIFIED ASTHMA, UNCOMPLICATED 01/26/2019 GLORIA WALDEN EQUINE BREEDER Ot J98.4 OTHER DISORDERS OF LUNG 01/26/2019 GLORIA WALDEN EQUINE BREEDER Ot R06.00 DYSPNEA, UNSPECIFIED 01/26/2019 GLORIA WALDEN EQUINE BREEDER Ot Z72.0 TOBACCO USE 01/26/2019 GLORIA WALDEN EQUINE BREEDER Ot C34.90 MALIGNANT NEOPLASM OF UNSP PART OF UNSP 01/26/2019 GLORIA WALDEN EQUINE BREEDER Ot G47.10 HYPERSOMNIA, UNSPECIFIED 01/26/2019 GLORIA WALDEN EQUINE BREEDER Ot J45.909 UNSPECIFIED ASTHMA, UNCOMPLICATED 01/26/2019 GLORIA WALDEN EQUINE BREEDER Ot J98.4 OTHER DISORDERS OF LUNG 01/26/2019 GLORIA WALDEN EQUINE BREEDER Ot Z72.0 TOBACCO USE Procedures There is [...] calculation of estimated glomerular filtration rate > G Serum or plasma glucose measurement (mass/volume) 220 [...] INFLUENZA A AND B ANTIGENS BY IA [facility] Urine drug screening test - [...] INFLUENZA A AND B ANTIGENS BY IA [facility] Comprehensive metabolic panel - 01/24/18 [...] or plasma urea nitrogen/creatinine mass ratio 19 [facility] Serum or plasma creatinine measurement with calculation of estimated glomerular filtration rate > [facility] Serum or plasma glucose measurement (mass/volume) 174 [...] - 03/31/18 09:23 ABSOLUTE NEUTROPHILS 3055 cells/uL 2153-5665 ABSOLUTE MONOCYTES 455 cells/uL 200-950 ABSOLUTE EOSINOPHILS [...] Status Pt. Type Provider Facility Loc./Unit Complaint [id number] 06/06/2014 08:47:00 06/06/2014 23:59:59 CLS Outpatient GERARDO KISER APRN [id number] 05/16/2014 10:11:00 05/16/2014 23:59:59 CLS Outpatient GERARDO KISER APRN [id number] 05/09/2014 09:17:00 05/09/2014 23:59:59 CLS Outpatient GERARDO KISER APRN [id number] 02/07/2017 11:07:00 Document Registration [id number] 01/26/2019 06:58:00 01/26/2019 09:50:00 DIS Outpatient KAMILLE CHAVEZ DO [facility] ENDO HYPERSOMNIA/DYSPNEA/ [id number] 01/19/2019 05:39:00 01/19/2019 14:32:00 DIS Outpatient KAMILLE CHAVEZ DO [facility] PREOP EBUS [id number] 01/17/2019 12:54:00 01/17/2019 23:59:59 CLS Outpatient GLORIA WALDEN APRN [facility] RT ASTHMA,BRONCHITIS [id number] 01/14/2019 13:40:00 01/14/2019 23:59:59 CLS Outpatient GLORIA WALDEN APRN [facility] RAD ASTHMA,DYSPNEA [id number] 12/28/2018 07:39:00 12/28/2018 23:59:59 CLS Preadmit GLORIA WALDEN APRN [facility] RT ASTHMA,BRONCHITIS [id number] 07/01/2018 07:30:00 07/01/2018 23:59:59 CLS Outpatient KAMILLE CHAVEZ DO [facility] PREOP BRONCHOSCOPY [id number] 06/21/2018 07:43:00 06/21/2018 23:59:59 CLS Outpatient GLORIA WALDEN EQUINE BREEDER [facility] RAD LUNG MASS [id number] 06/08/2018 09:00:00 06/08/2018 23:59:59 CLS Preadmit JOSE R KRUSE, VINAY Almazan INCONTINENCE, OVERACTIVE BLADDER, ISC [id number] 04/15/2018 10:00:00 04/15/2018 23:59:59 CLS Preadmit MALLY BRITO DO [facility] CARD [id number] 03/31/2018 10:49:00 03/31/2018 13:24:00 DIS Emergency VENTURA KRUSE, BUSHRA Navas [facility] ER POSS PNEUMONIA [id number] 03/23/2018 08:23:00 03/23/2018 23:59:59 CLS Outpatient GLORIA WALDEN EQUINE BREEDER [facility] RAD R91.8 LUNG MASS [id number] 03/19/2018 20:10:00 03/20/2018 06:00:00 DIS Outpatient GLORIA WALDEN EQUINE BREEDER [facility] SLEEP J45.909 ASTHMA [id number] 03/17/2018 19:07:00 03/17/2018 20:59:00 DIS Emergency JOSSELIN QUINONEZ DO K [facility] ER BS HIGH, MASS IN LUNG [id number] 03/15/2018 09:30:00 03/15/2018 23:59:59 CLS Preadmit GLORIA WALDEN EQUINE BREEDER [facility] PULM J45.909 ASTHMA [id number] 03/08/2018 12:09:00 03/08/2018 23:59:59 CLS Outpatient GLORIA WALDEN EQUINE BREEDER [facility] RAD J45.909 ASTHMA [id number] 03/04/2018 12:00:00 03/04/2018 23:59:59 CLS Preadmit MALLY BRITO DO [facility] CARD DIARRHEA [id number] 02/25/2018 08:02:00 02/25/2018 23:59:59 CLS Outpatient MALLY BRITO DO [facility] RAD DIARRHEA [id number] 02/23/2018 07:05:00 02/23/2018 23:59:59 CLS Outpatient KARTHIK WARD APPETIZER PACKER [facility] CARD CHEST PAIN, EXERTIONAL DYSPNEA [id number] 02/10/2018 14:17:00 02/10/2018 23:59:59 CLS Preadmit KARTHIK WARD APPETIZER PACKER [facility] CARD CHEST PAIN,EXERTIONAL DYSPNEA [id number] 02/02/2018 12:27:00 02/02/2018 15:40:00 DIS Outpatient MALLY BRITO DO [facility] ENDO SCREENING/GERD [id number] 01/28/2018 05:35:00 01/28/2018 12:23:00 DIS Outpatient MALLY BRITO DO [facility] PREOP COLONOSCOPY/EGD [id number] 01/24/2018 18:04:00 01/24/2018 21:28:00 DIS Emergency JACKY CORONEL [facility] ER DIAHRREA,VOMITING [id number] 04/20/2017 10:15:00 04/20/2017 23:59:59 CLS Preadmit GLORIA WALDEN APRN [facility] PUL RESTRICTIVE LUNG DISEASE,SEIZURE [id number] 03/12/2017 13:00:00 04/19/2017 00:01:00 DIS Outpatient GLORIA WALDEN APRN [facility] PULM RESTRICTIVE LUNG DISEASE,SEIZURE [id number] 03/30/2017 19:26:00 03/30/2017 21:15:00 DIS Emergency JOSSELIN QUINONEZ DO [facility] ER SOA [id number] 03/28/2017 13:33:00 03/28/2017 17:13:00 DIS Emergency TYLER CHUNG MD [facility] ER SOA [id number] 03/24/2017 14:15:00 03/24/2017 23:59:59 CLS Preadmit KAMILLE CHAVEZ DO [facility] RAD J43.9 COPD [id number] 03/24/2017 13:23:00 03/24/2017 15:50:00 DIS Emergency GALA TALLEY EQUINE BREEDER [facility] ER CHEST PAIN [id number] 03/21/2017 09:07:00 03/21/2017 12:05:00 DIS Emergency GALA TALLEY EQUINE BREEDER [facility] ER BLOODY AND FREQUENT STOOL [id number] 01/26/2017 12:34:00 01/27/2017 13:40:00 DIS Inpatient STIVEN RAYMOND MD [facility] 4TH DIVERTICULITIS [id number] 01/23/2017 12:36:00 01/23/2017 15:34:00 DIS Emergency GALA TALLEY EQUINE BREEDER [facility] ER FEVER/CHILLS CONSTIPATION/ DIARRHEA [id number] 01/12/2017 09:12:00 01/12/2017 23:59:59 CLS Outpatient PRESTON HOLLEY MD [facility] RT SEIZURE [id number] 12/20/2016 20:10:00 12/21/2016 06:10:00 DIS Outpatient KAMILLE CHAVEZ DO [facility] SLEEP SNORING [id number] 09/23/2016 08:51:00 09/23/2016 23:59:59 CLS Outpatient KAMILLE CHAVEZ DO [facility] RAD COPD,TOBACCO USER [id number] 08/13/2016 14:29:00 08/13/2016 23:59:59 CLS Outpatient KAMILLE CHAVEZ DO [facility] RT COPD,OBESITY [id number] 06/27/2016 15:19:00 06/27/2016 23:59:59 CLS Outpatient PRESTON HOLLEY MD [facility] RAD SEIZURE [id number] 05/15/2016 06:57:00 05/15/2016 12:50:00 DIS Outpatient RENETTA KRUSE FACC, VALENTIN HANDLEY CCDS [facility] CATH ANGINA,SOB LEG PAIN [id number] 05/12/2016 11:18:00 05/12/2016 23:59:59 CLS Outpatient PRESTON HOLLEY MD [facility] LAB SEIZURES [id number] 05/12/2016 09:25:00 05/12/2016 23:59:59 CLS Outpatient LEYDI KRUSE, PRESTON Montelongo [facility] RT SEIZURE NOS [id number] 02/27/2016 14:00:00 04/03/2016 09:43:00 DIS Outpatient HOLLIS KRUSE, CHAVA Gill [facility] REHAB CERVICAL STRAIN [id number] 02/10/2016 11:48:00 02/10/2016 14:00:00 DIS Emergency JACKY CORONEL [facility] ER R FOOT INJ [id number] 02/21/2019 21:00:00 PEN Preadmit GLORIA WALDEN APRN [facility] SLEEP HYPERSONMIA [id number] 01/28/2019 08:00:00 PEN Preadmit MALLY BRITO DO D [facility] RAD DIARRHEA [id number] 01/25/2019 10:30:00 PEN Preadmit KAMILLE CHAVEZ DO [facility] RAD ABN CHEST CT [id number] 01/24/2019 14:23:00 PEN Preadmit MALLY BRITO DO D [facility] RAD DIARRHEA [id number] 01/24/2019 13:01:00 PEN Preadmit RENETTA KRUSE FACC, VALENTIN HANDLEY CCDS [facility] CARD CHEST DISCOMFORT,SOB,COPD [id number] 01/18/2019 16:40:00 01/18/2019 23:59:59 CLS Outpatient GERARDO KISER APRN [facility] [id number] 07/28/2018 12:00:00 Document Registration [id number] 03/31/2018 08:25:00 Document Registration [id number] 01/26/2018 21:02:00 01/26/2018 22:39:00 DIS Outpatient BUSHRA SINGH [facility] [place] [id number] 01/26/2018 21:13:23 Document Registration [id number] 03/11/2017 08:45:00 Document Registration
--- NOTE | 2019-01-27 11:01 | ED Cough/URI ---
General Chief Complaint: Respiratory Problems Stated Complaint: COUGH;VOMITING Nursing Triage Note: PT PRESENTS TO ED WITH COMPLAINTS OF N/V, HOARSNESS, SOA. PT STATES SHE HAD AN BRONCHOSCOPY YESTERDAY BY DR. CHAVEZ AND HE STATED TO HER SHE COULD DEVELOP PNEUMONIA AFTER. PT STATES SHE HAS BEEN HAVING THE COUGHING, CHEST PAIN WITH INHALATION AND COUGH, AND VOMITING AFTER COUGHING SPELLS PRIOR TO THE BRONCHOSCOPY Sepsis Screen: No Definite Risk Source: patient Exam Limitations: no limitations History of Present Illness Date Seen by Provider: Jan 27, 2019 Time Seen by Provider: 11:01 Initial Comments To ER with reports of nausea vomiting worsening shortness of breath and cough. She had a bronchoscopy yesterday for some lung nodules. States that she was sick before the bronchoscopy and was told this could result in pneumonia. No fevers or chills. Timing/Duration: constant Severity/Quality: moderate Associated Symptoms: cough, earache, muscle aches, nasal congestion, nasal drainage Allergies and Home Medications Allergies Coded Allergies: fentanyl (Verified Allergy, Mild, GI UPSET, 01/19/19) Iodinated Contrast- Oral and IV Dye (Verified Allergy, Unknown, 01/28/18) Penicillins (Verified Allergy, Unknown, 01/26/17) Home Medications Albuterol Sulfate 1.25 Mg/3 Ml Vial.neb, 1.25 MG IH QID PRN for SHORTNESS OF BREATH, (Reported) Albuterol Sulfate 1 Puff Puff, 2 PUFF IH QID PRN for SHORTNESS OF BREATH, ( Reported) Alprazolam 2 Mg Tablet, 2 MG PO TID PRN for ANXIETY, (Reported) Aspirin 81 Mg Tab.chew, 81 MG PO DAILY, (Reported) Atenolol 50 Mg Tablet, 50 MG PO DAILY, (Reported) Atorvastatin Calcium 40 Mg Tablet, 40 MG PO HS, (Reported) Budesonide/Formoterol Fumarate 10.2 Gm Hfa.aer.ad, 2 PUFF IH BID, (Reported) Famotidine 20 Mg Tablet, 20 MG PO BID, (Reported) Hydrocodone/Acetaminophen 1 Each Tablet, 1 TAB PO TID, (Reported) Insulin Aspart 300 Units/3 Ml Solution, 40 UNITS SQ TIDWM, (Reported) Insulin Determir 1,000 Units/10 Ml Soln, 70 UNITS SQ BID, (Reported) Levothyroxine Sodium 150 Mcg Tablet, 150 MCG PO DAILY, (Reported) Montelukast Sodium 10 Mg Tablet, 10 MG PO DAILY, (Reported) Oxybutynin Chloride 10 Mg Tab.er.24, 10 MG PO DAILY, (Reported) Pantoprazole Sodium 40 Mg Tablet.dr, 40 MG PO DAILY Prescribed by: MALLY BRITO on 02/02/18 144 Sucralfate 1 Gm Tablet, 1 GM PO QID Prescribed by: MALLY BRITO on 02/02/18 1449 Tiotropium [place] 1 Inh Aerp, 1 INH IH DAILY, (Reported) Patient Home Medication List Home Medication List Reviewed: Yes Review of Systems Review of Systems Constitutional: see HPI, malaise, weakness EENTM: see HPI Respiratory: see HPI, cough Cardiovascular: no symptoms reported Genitourinary: no symptoms reported Musculoskeletal: no symptoms reported Skin: no symptoms reported Psychiatric/Neurological: No Symptoms Reported Past Mjnxxzs-Muiwng-Upntdb Hx Patient Social History Alcohol Use: Denies Use Recreational Drug Use: No Smoking Status: Current Everyday Smoker Type Used: Cigarettes 2nd Hand Smoke Exposure: Yes Recent Foreign Travel: No Contact w/Someone Who Travel: No Recent Infectious Disease Expo: No Recent Hopitalizations: No Physical Abuse: No Sexual Abuse: No Mistreated: No Fear: No Immunizations Up To Date Tetanus Booster (TDap): Unknown PED Vaccines UTD: No Date of Pneumonia Vaccine: Jul 11, 2014 Date of Influenza Vaccine: Nov 02, 2016 Seasonal Allergies Seasonal Allergies: Yes Past Medical History Surgeries: Yes (BREAST LUMPECTOMY; EGD/COLONOSCOPY; CARDIAC CATH-NO INTERVENTION) Adenoidectomy, Appendectomy, Breast, Cardiac, Gallbladder, Hysterectomy, Tonsillectomy Respiratory: Yes (DX LUNG MASS RECENTLY) Asthma, COPD, Emphysema Currently Using CPAP: No Currently Using BIPAP: No Cardiac: Yes High Cholesterol, Hypertension Neurological: No 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 Disorders: No Female 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 Disorders: Denies LEHR TENDER History: Hysterectomy, Menopausal Sexually Transmitted Disease: No HIV/AIDS: No Genitourinary: Yes (INCONTINENCE) Gastrointestinal: Yes (DIVERTICULITIS ) Gastroesophageal Reflux, El's Esophagus, Diverticulosis, Chronic Diarrhea Musculoskeletal: Yes (CHRONIC GENERALIZED PAIN ) Chronic Back Pain Endocrine: Yes Diabetes, Insulin dep, Hypothyroidsim HEENT: No Loss of Vision: Denies Hearing Impairment: Denies Cancer: Yes (LUNG MASS) Did You Recieve Any Treatments: No Psychosocial: Yes Sleep Difficulties, Anxiety, Bipolar Integumentary: No Blood Disorders: No Adverse Reaction/Blood Tranf: No Family Medical History FH: cancer 19 MOTHER Myocardial infarction 19 FATHER (48 years old) No Pertinent Family Hx Physical Exam Vital Signs - First Documented 01/27/19 10:02 Temp 97.6 Pulse 104 Resp 20 B/P (MAP) 111/85 (94) Pulse Ox 96 Capillary Refill : Less Than 3 Seconds Height: 5'1.00" Weight: 162lbs. 0.0oz. 73.089467fi; 30.4 BMI Method:Stated General Appearance: WD/WN, no apparent distress Eyes: Bilateral Eye Normal Inspection, Bilateral Eye PERRL, Bilateral Eye EOMI HEENT: PERRL/EOMI, normal ENT inspection, TMs normal Neck: non-tender, full range of motion Respiratory: no respiratory distress, no accessory muscle use Gastrointestinal: normal bowel sounds, soft Extremities: normal range of motion Neurologic/Psychiatric: alert, normal mood/affect, oriented x 3 Skin: normal color, warm/dry Progress/Results/Core Measures Suspected Sepsis Recent Fever Within 48 Hours: No Infection Criteria Present: None New/Unexplained Altered Menta: No Sepsis Screen: No Definite Risk SIRS Temperature:97.6 Pulse: 104 Respiratory Rate: 20 Laboratory Tests 01/27/19 08:56: White Blood Count 6.0 Blood Pressure 111 /85 Mean: 94 Laboratory Tests 01/27/19 08:56: Creatinine 0.83, Platelet Count 210, Total Bilirubin 0.7 Results/Orders Lab Results Laboratory Tests Test 01/27/19 08:56 01/27/19 09:45 Range/Units White Blood Count 6.0 4.3-11.0 10^3/uL Red Blood Count 4.45 4.35-5.85 10^6/uL Hemoglobin 14.7 11.5-16.0 G/DL Hematocrit 42 35-52 % Mean Corpuscular Volume 93 80-99 FL Mean Corpuscular Hemoglobin 33 25-34 PG Mean Corpuscular Hemoglobin Concent 35 32-36 G/DL Red Cell Distribution Width 12.3 10.0-14.5 % Platelet Count 210 130-400 10^3/uL Mean Platelet Volume 10.4 7.4-10.4 FL Neutrophils (%) (Auto) 73 42-75 % Lymphocytes (%) (Auto) 18 12-44 % Monocytes (%) (Auto) 7 0-12 % Eosinophils (%) (Auto) 2 0-10 % Basophils (%) (Auto) 0 0-10 % Neutrophils # (Auto) 4.4 1.8-7.8 X 10^3 Lymphocytes # (Auto) 1.1 1.0-4.0 X 10^3 Monocytes # (Auto) 0.4 0.0-1.0 X 10^3 Eosinophils # (Auto) 0.1 0.0-0.3 10^3/uL Basophils # (Auto) 0.0 0.0-0.1 10^3/uL Sodium Level 135 135-145 MMOL/L Potassium Level 4.0 3.6-5.0 MMOL/L Chloride Level 101 98-107 MMOL/L Carbon Dioxide Level 27 21-32 MMOL/L Anion Gap 7 5-14 MMOL/L Blood Urea Nitrogen 9 7-18 MG/DL Creatinine 0.83 0.60-1.30 MG/DL Estimat Glomerular Filtration Rate > 60 BUN/Creatinine Ratio 11 Glucose Level 286 H 70-105 MG/DL Calcium Level 9.6 8.5-10.1 MG/DL Corrected Calcium 9.5 8.5-10.1 MG/DL Total Bilirubin 0.7 0.1-1.0 MG/DL Aspartate Amino Transf (AST/SGOT) 14 5-34 U/L Alanine Aminotransferase (ALT/SGPT) 17 0-55 U/L Alkaline Phosphatase 92 40-136 U/L Total Protein 6.8 6.4-8.2 GM/DL Albumin 4.1 3.2-4.5 GM/DL Urine Color YELLOW Urine Clarity CLEAR Urine pH 7 5-9 Urine Specific [place] 1.010 L 1.016-1.022 Urine Protein 1+ H NEGATIVE Urine Glucose (UA) 4+ H NEGATIVE Urine Ketones NEGATIVE NEGATIVE Urine Nitrite NEGATIVE NEGATIVE Urine Bilirubin NEGATIVE NEGATIVE Urine Urobilinogen NORMAL NORMAL MG/DL Urine Leukocyte Esterase NEGATIVE NEGATIVE Urine RBC (Auto) 1+ H NEGATIVE Urine RBC NONE /HPF Urine WBC NONE /HPF Urine Squamous Epithelial Cells 10-25 H /HPF Urine Crystals NONE /LPF Urine Bacteria TRACE /HPF Urine Casts NONE /LPF Urine Mucus NEGATIVE /LPF Urine Yeast FEW H /HPF Urine Culture Indicated YES My Orders Orders - GALA TALLEY SILVER PLATER Chest Pa/Lat (2 View) (01/27/19 10:29) Iv Heplock-Insert (Order) (01/27/19 10:40) Ns Iv 1000 Ml (Sodium Chloride 0.9%) (01/27/19 10:45) Ondansetron Injection (Zofran Injectio (01/27/19 10:45) Ketorolac Injection (Toradol Injection) (01/27/19 10:45) Medications Given in ED Current Medications Medications Dose Ordered Sig/Peterson Route Start Time Stop Time Status Last Admin Dose Admin Ketorolac Tromethamine 15 mg ONCE ONCE IVP 01/27/19 10:45 01/27/19 10:46 DC 01/27/19 11:51 15 MG Ondansetron HCl 4 mg ONCE ONCE IVP 01/27/19 10:45 01/27/19 10:46 DC 01/27/19 11:51 4 MG Vital Signs/I&O 01/27/19 10:02 Temp 97.6 Pulse 104 Resp 20 B/P (MAP) 111/85 (94) Pulse Ox 96 Capillary Refill : Less Than 3 Seconds Blood Pressure Mean: 94 Departure Impression Primary Impression: Upper respiratory infection Qualified Codes: J06.9 - Acute upper respiratory infection, unspecified Disposition: HOME, SELF-CARE Condition: Stable Departure-Patient Inst. Decision time for Depature: 11:54 Referrals: [facility] [place] (PCP/Family) Primary Care Physician Patient Instructions: Bacterial Upper Respiratory Infection, Adult Add. Discharge Instructions: 1. Antibiotic as directed 2. Cough medication as directed 3. Follow-up with your doctor next week All discharge instructions reviewed with patient and/or family. Voiced understanding. Scripts Cefuroxime Axetil (Cefuroxime) 250 Mg Tablet 250 MG PO BID, #10 TAB Prov: GALA TALLEY SILVER PLATER 01/27/19 Fluconazole (Diflucan) 150 Mg Tablet 150 MG PO DAILY, #3 TAB Prov: GALA TALLEY SILVER PLATER 01/27/19 GALA TALLEY APRN Jan 27, 2019 11:01
--- NOTE | 2019-01-27 11:55 | Diagnostic Imaging Report ---
INDICATION: Difficulty breathing. TIME OF EXAM: 11:11 AM Correlation is made with prior study from one day earlier. FINDINGS: No pneumothorax is identified, status post bronchoscopy one day earlier. Lungs appear to be fairly clear. No significant infiltrate, effusion or pneumothorax is seen. There may be some minimal atelectasis in the left base. IMPRESSION: Minimal left base subsegmental atelectasis. The study is otherwise unremarkable. Dictated by: Dictated on workstation # [id number]
[2019-01-27] MEDS ORDERED: CEFU250T80 PO (11:56)
[2019-01-27] MEDS ORDERED: FLUC150T PO (11:56)
[2019-01-27 12:29] VITALS: BP 110/82
== END 2019-01-27 12:29 | disposition home or self-care (01) ==
LOC: EDUNIT# 09:36 → ER 09:37
DX: J06.9 Acute upper respiratory infection, unspecified (principal); J43.9 Emphysema, unspecified; J45.909 Unspecified asthma, uncomplicated; I10 Essential (primary) hypertension; E78.00 Pure hypercholesterolemia, unspecified; K21.9 Gastro-esophageal reflux disease without esophagitis; E11.9 Type 2 diabetes mellitus 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s; E03.9 Hypothyroidism, unspecified; F41.9 Anxiety disorder, unspecified; F31.9 Bipolar disorder, unspecified; Z87.19 Personal history of other diseases of the digestive system; Z90.49 Acquired absence of other specified parts of digestive tract; Z90.710 Acquired absence of both cervix and uterus; Z90.89 Acquired absence of other organs; Z88.0 Allergy status to penicillin; Z91.041 Radiographic dye allergy status; Z88.5 Allergy status to narcotic agent; Z79.82 Long term (current) use of aspirin; Z79.4 Long term (current) use of insulin
CPT/HCPCS: 36415; 71046; 80053; 81000; 85025; 87088

== ENCOUNTER → 2019-01-28 | Outpatient (CLI) | payer MEDICAID ==
[~2019-01-28] MED LIST changes: +CEFU250T80 PO; +FLUC150T PO
--- NOTE | 2019-01-28 09:03 | Diagnostic Imaging Report ---
PROCEDURE: US Gallbladder. TECHNIQUE: Multiple real-time grayscale images were obtained over the right upper quadrant in various projections. INDICATION: Diarrhea and abdominal pain. FINDINGS: The liver is normal in size at 13.4 cm. No discrete liver mass is identified. The portal vein is patent and shows normal direction of flow. Gallbladder is without stones or sludge. No wall thickening or biliary duct dilatation is seen. Pancreatic head and proximal body are unremarkable. The tail is obscured by bowel gas. Right kidney is unremarkable. No calculi or hydronephrosis is seen. There is no ascites. IMPRESSION: Essentially unremarkable gallbladder ultrasound. Dictated by: Dictated on workstation # [id number]
== END ==
LOC: RAD 07:52
PROVIDERS: ATTEND Surgery
DX: R10.9 Unspecified abdominal pain (principal); R19.7 Diarrhea, unspecified
CPT/HCPCS: 76705

== ENCOUNTER → 2019-02-01 | Outpatient (CLI) | payer MEDICAID, OTHER ==
--- NOTE | 2019-02-01 14:02 | Diagnostic Imaging Report ---
INDICATION: Lingular nodular density. The studies are performed for further evaluation. TECHNIQUE: Serum blood glucose level at the time of injection is 185 mg/dL. Patient was administered 14.1 mCi F-18 FDG intravenously in the right hand and imaging was performed from the top of skull to mid thighs. Noncontrast CT was also performed for attenuation correction and anatomic correlation. COMPARISON: Correlation is made with a recent noncontrast CT chest from 01/14/2019 and prior PET/CT from 03/23/2018. FINDINGS: There is symmetric activity throughout the brain. Soft tissues of the neck are unremarkable. No mediastinal or hilar hypermetabolism is seen. The pulmonary parenchyma is without abnormal hypermetabolism. Specifically, no lingular hypermetabolism is identified. Area of density in the lingula on recent CT chest appears less prominent on the CT study done today. This may represent an area of minimal infiltrate or atelectasis. Physiologic activity in the GI and tracts is seen. No abnormal hypermetabolism in the abdomen or pelvis is identified. IMPRESSION: Unremarkable PET/CT study. No suspicious hypermetabolism is identified in the lingula, as described above. Dictated by: Dictated on workstation # [id number]
== END ==
LOC: RAD 09:38
PROVIDERS: ATTEND Internal Medicine Critical Care Medicine
DX: J45.909 Unspecified asthma, uncomplicated (principal); J98.4 Other disorders of lung; G47.10 Hypersomnia, unspecified; Z72.0 Tobacco use

== ENCOUNTER → 2019-02-10 | Outpatient (CLI) | payer MEDICAID, OTHER ==
[~2019-02-10] MED LIST changes: +CATHETER FLUSH 10 ML SYR IV PRN
--- NOTE | 2019-02-10 12:28 | Diagnostic Imaging Report ---
INDICATION: Diarrhea. TECHNIQUE: Acquisitions were acquired over the abdomen after the administration of 5.38 mCi of technetium 99m Choletec. Ejection fraction was calculated after the patient ingested 8 ounces of ensure. FINDINGS: There is homogenous uptake of isotope throughout the liver. There is free flow of activity into the small bowel. Significant accumulation within the gallbladder does not occur until 70 minutes. Ejection fraction is calculated to be 2.7%. IMPRESSION: Normal hepatobiliary scan and ejection fraction. Dictated by: Dictated on workstation # [id number]
== END ==
LOC: RAD 09:29
PROVIDERS: ATTEND Surgery
DX: R19.7 Diarrhea, unspecified (principal)
CPT/HCPCS: 78227

== ENCOUNTER 2019-02-20 19:59 | Emergency (ER) | payer MEDICAID, OTHER ==
[~2019-02-20] VITALS: Ht 157.5 cm; Wt 70.3 kg
[~2019-02-20 19:59] MED LIST changes: -CATHETER FLUSH 10 ML SYR IV PRN
--- NOTE | 2019-02-20 20:24 | ED Abdominal Pain ---
General Chief Complaint: Abdominal/GI Problems Stated Complaint: ABD PAIN,DIARRHEA Source of Information: Patient Exam Limitations: No Limitations History of Present Illness Date Seen by Provider: Feb 20, 2019 Time Seen by Provider: 20:23 Initial Comments To ER with right upper quadrant and epigastric abdominal pain for the past 2-3 days. She is scheduled for Cholecystectomy here on 02/24/19. Pain Became intolerable today. She has hydrocodone at home but has not taken any of it. Timing/Duration: 2-3 Days Severity/Quality: Moderate Location: RUQ, Epigastric Radiation: No Radiation Activities at Onset: None Associated Symptoms: Denies Symptoms Allergies and Home Medications Allergies Coded Allergies: fentanyl (Verified Allergy, Mild, GI UPSET, 01/19/19) Iodinated Contrast- Oral and IV Dye (Verified Allergy, Unknown, 01/28/18) Penicillins (Verified Allergy, Unknown, 01/26/17) Home Medications Albuterol Sulfate 1.25 Mg/3 Ml Vial.neb, 1.25 MG IH QID PRN for SHORTNESS OF BREATH, (Reported) Albuterol Sulfate 1 Puff Puff, 2 PUFF IH QID PRN for SHORTNESS OF BREATH, ( Reported) Alprazolam 2 Mg Tablet, 2 MG PO TID PRN for ANXIETY, (Reported) Aspirin 81 Mg Tab.chew, 81 MG PO DAILY, (Reported) Atenolol 50 Mg Tablet, 50 MG PO DAILY, (Reported) Atorvastatin Calcium 40 Mg Tablet, 40 MG PO HS, (Reported) Budesonide/Formoterol Fumarate 10.2 Gm Hfa.aer.ad, 2 PUFF IH BID, (Reported) Cefuroxime Axetil 250 Mg Tablet, 250 MG PO BID Prescribed by: GALA TALLEY on 01/27/19 1156 Famotidine 20 Mg Tablet, 20 MG PO BID, (Reported) Fluconazole 150 Mg Tablet, 150 MG PO DAILY Prescribed by: GALA TALLEY on 01/27/19 1156 Hydrocodone/Acetaminophen 1 Each Tablet, 1 TAB PO TID, (Reported) Insulin Aspart 300 Units/3 Ml Solution, 40 UNITS SQ TIDWM, (Reported) Insulin Determir 1,000 Units/10 Ml Soln, 70 UNITS SQ BID, (Reported) Levothyroxine Sodium 150 Mcg Tablet, 150 MCG PO DAILY, (Reported) Montelukast Sodium 10 Mg Tablet, 10 MG PO DAILY, (Reported) Oxybutynin Chloride 10 Mg Tab.er.24, 10 MG PO DAILY, (Reported) Pantoprazole Sodium 40 Mg Tablet.dr, 40 MG PO DAILY Prescribed by: MALLY BRITO on 02/02/181448 Sucralfate 1 Gm Tablet, 1 GM PO QID Prescribed by: MALLY BRITO on 02/02/18 1449 Tiotropium Tony 1 Inh Aerp, 1 INH IH DAILY, (Reported) Patient Home Medication List Home Medication List Reviewed: Yes Review of Systems Review of Systems Constitutional: see HPI EENTM: No Symptoms Reported Respiratory: No Symptoms Reported Cardiovascular: No Symptoms Reported Gastrointestinal: See HPI, Abdominal Pain, Nausea Genitourinary: No Symptoms Reported Musculoskeletal: no symptoms reported Skin: no symptoms reported Psychiatric/Neurological: No Symptoms Reported Endocrine: No Symptoms Reported Hematologic/Lymphatic: No Symptoms Reported Past [id number] Hx Patient Social History Type Used: Cigarettes 2nd Hand Smoke Exposure: Yes Recent Foreign Travel: No Contact w/Someone Who Travel: No Recent Hopitalizations: No Immunizations Up To Date Tetanus Booster (TDap): Unknown PED Vaccines UTD: No Date of Pneumonia Vaccine: Jul 11, 2014 Date of Influenza Vaccine: Nov 02, 2016 Seasonal Allergies Seasonal Allergies: Yes Past Medical History Surgeries: Yes (BREAST LUMPECTOMY; EGD/COLONOSCOPY; CARDIAC CATH-NO INTERVENTION) Adenoidectomy, Appendectomy, Breast, Cardiac, Gallbladder, Hysterectomy, Tonsillectomy Respiratory: Yes (DX LUNG MASS RECENTLY) Asthma, COPD, Emphysema Currently Using CPAP: No Currently Using BIPAP: No Cardiac: Yes High Cholesterol, Hypertension Neurological: No 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 Disorders: No Female 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 Disorders: Denies RN INFORMATICS History: Hysterectomy, Menopausal Sexually Transmitted Disease: No HIV/AIDS: No Genitourinary: Yes (INCONTINENCE) Gastrointestinal: Yes (DIVERTICULITIS ) Gastroesophageal Reflux, El's Esophagus, Diverticulosis, Chronic Diarrhea Musculoskeletal: Yes (CHRONIC GENERALIZED PAIN ) Chronic Back Pain Endocrine: Yes Diabetes, Insulin dep, Hypothyroidsim HEENT: No Loss of Vision: Denies Hearing Impairment: Denies Cancer: Yes (LUNG MASS) Did You Recieve Any Treatments: No Psychosocial: Yes Sleep Difficulties, Anxiety, Bipolar Integumentary: No Blood Disorders: No Adverse Reaction/Blood Tranf: No Family Medical History FH: cancer 19 MOTHER Myocardial infarction 19 FATHER (48 years old) No Pertinent Family Hx Physical Exam Vital Signs Vital Signs - First Documented 02/20/19 20:15 Temp 98.2 Pulse 73 Resp 18 B/P (MAP) 122/88 (99) Pulse Ox 98 O2 Delivery Room Air Capillary Refill : Height/Weight/BMI Height: 5'1.00" Weight: 162lbs. 0.0oz. [id number]; 30.4 BMI Method:Stated General Appearance: WD/WN, no apparent distress HEENT: PERRL/EOMI, normal ENT inspection Respiratory: no respiratory distress, no accessory muscle use Cardiovascular: regular rate, rhythm, no murmur Gastrointestinal: normal bowel sounds, soft, tenderness Extremities: normal range of motion, non-tender Neurologic/Psychiatric: alert, normal mood/affect, oriented x 3 Skin: normal color, warm/dry Progress/Results/Core Measures Results/Orders Lab Results Laboratory Tests Test 02/20/19 20:25 Range/Units White Blood Count 7.4 4.3-11.0 10^3/uL Red Blood Count 4.58 4.35-5.85 10^6/uL Hemoglobin 15.1 11.5-16.0 G/DL Hematocrit 43 35-52 % Mean Corpuscular Volume 93 80-99 FL Mean Corpuscular Hemoglobin 33 25-34 PG Mean Corpuscular Hemoglobin Concent 35 32-36 G/DL Red Cell Distribution Width 12.7 10.0-14.5 % Platelet Count 281 130-400 10^3/uL Mean Platelet Volume 10.3 7.4-10.4 FL Neutrophils (%) (Auto) 64 42-75 % Lymphocytes (%) (Auto) 25 12-44 % Monocytes (%) (Auto) 8 0-12 % Eosinophils (%) (Auto) 3 0-10 % Basophils (%) (Auto) 0 0-10 % Neutrophils # (Auto) 4.7 1.8-7.8 X 10^3 Lymphocytes # (Auto) 1.9 1.0-4.0 X 10^3 Monocytes # (Auto) 0.6 0.0-1.0 X 10^3 Eosinophils # (Auto) 0.2 0.0-0.3 10^3/uL Basophils # (Auto) 0.0 0.0-0.1 10^3/uL Sodium Level 135 135-145 MMOL/L Potassium Level 4.0 3.6-5.0 MMOL/L Chloride Level 101 98-107 MMOL/L Carbon Dioxide Level 21 21-32 MMOL/L Anion Gap 13 5-14 MMOL/L Blood Urea Nitrogen 10 7-18 MG/DL Creatinine 0.88 0.60-1.30 MG/DL Estimat Glomerular Filtration Rate > 60 BUN/Creatinine Ratio 11 Glucose Level 361 H 70-105 MG/DL Calcium Level 10.0 8.5-10.1 MG/DL Corrected Calcium 9.8 8.5-10.1 MG/DL Total Bilirubin 0.4 0.1-1.0 MG/DL Aspartate Amino Transf (AST/SGOT) 10 5-34 U/L Alanine Aminotransferase (ALT/SGPT) 17 0-55 U/L Alkaline Phosphatase 92 40-136 U/L Troponin I < 0.028 <0.028 NG/ML Total Protein 6.9 6.4-8.2 GM/DL Albumin 4.3 3.2-4.5 GM/DL Lipase 77 8-78 U/L My Orders Orders - GALA TALLEY APRN Ketorolac Injection (Toradol Injection) (02/20/19 20:30) Ns Iv 1000 Ml (Sodium Chloride 0.9%) (02/20/19 20:30) Hydromorphone Injection (Dilaudid Inject (02/20/19 20:30) Cbc With Automated Diff (02/20/19 20:20) Comprehensive Metabolic Panel (02/20/19 20:20) Lipase (02/20/19 20:20) Ed Iv/Invasive Line Start (02/20/19 20:20) Ct Abdomen/Pelvis Wo (02/20/19 21:42) Troponin I (02/20/19 21:42) Ekg Tracing (02/20/19 21:42) Lorazepam Injection (Ativan Injection) (02/20/19 21:45) Ns Iv 1000 Ml (Sodium Chloride 0.9%) (02/20/19 23:00) Medications Given in ED Current Medications Medications Dose Ordered Sig/Peterson Route Start Time Stop Time Status Last Admin Dose Admin Hydromorphone HCl 1 mg ONCE ONCE IV 02/20/19 20:30 02/20/19 20:31 DC 02/20/19 20:31 1 MG Ketorolac Tromethamine 15 mg ONCE ONCE IVP 02/20/19 20:30 02/20/19 20:31 DC 02/20/19 20:31 15 MG Lorazepam 1 mg ONCE ONCE IVP 02/20/19 21:45 02/20/19 21:46 DC 02/20/19 21:52 1 MG Vital Signs/I&O 02/20/19 20:15 Temp 98.2 Pulse 73 Resp 18 B/P (MAP) 122/88 (99) Pulse Ox 98 O2 Delivery Room Air Departure Communication (Admissions) [id number]-she states that after Dilaudid and Toradol she is not feeling any better, states she would like to be admitted to the hospital. Impression Primary Impression: Pain, abdominal, nonspecific Disposition: HOME, SELF-CARE Condition: Stable Departure-Patient Inst. Decision time for Depature: 23:34 Referrals: [facility] [place] ([place]) Primary Care Physician Patient Instructions: Acute Abdomen (Belly Pain), Adult (DC) Add. Discharge Instructions: 1. Return to ER for any concerns 2. Follow-up with your doctor next week 3. All discharge instructions reviewed with patient and/or family. Voiced understanding. Scripts Dicyclomine HCl (Dicyclomine HCl) 20 Mg Tablet 20 MG PO TID, #40 TAB Prov: GALA TALLEY APRN 02/20/19 GALA TALLEY APRN Feb 20, 2019 20:24
[2019-02-20] MEDS ORDERED: NS IV 1000 ML 1,000 ML IV SCH ×2 (20:30→23:00)
[2019-02-20] MEDS ORDERED: HYDROmorphone 2 MG/ML VIAL (DILAUDID) IV ONE (20:30)
[2019-02-20] MEDS ORDERED: KETOROLAC 30 MG/ML VIAL IVP ONE (20:30)
[2019-02-20 20:31] LABS: BASOPHILS % (AUTO) 0 % (0-10); EOSINOPHILS # (AUTO) 0.2 10^3/uL (0.0-0.3); EOSINOPHILS % (AUTO) 3 % (0-10); HEMATOCRIT 43 % (35-52); HEMOGLOBIN 15.1 G/DL (11.5-16.0); LYMPHOCYTES # (AUTO) 1.9 X 10^3 (1.0-4.0); LYMPHOCYTES % (AUTO) 25 % (12-44); MEAN CORPUSCULAR HEMOGLOBIN 33 PG (25-34); MEAN CORPUSCULAR HGB CONC 35 G/DL (32-36); MEAN CORPUSCULAR VOLUME 93 FL (80-99); MEAN PLATELET VOLUME 10.3 FL (7.4-10.4); MONOCYTES # (AUTO) 0.6 X 10^3 (0.0-1.0); MONOCYTES % (AUTO) 8 % (0-12); NEUTROPHILS # (AUTO) 4.7 X 10^3 (1.8-7.8); NEUTROPHILS % (AUTO) 64 % (42-75); PLATELET COUNT 281 10^3/uL (130-400); RED CELL DISTRIBUTION WIDTH 12.7 % (10.0-14.5); WHITE BLOOD COUNT 7.4 10^3/uL (4.3-11.0)
--- OUTSIDE RECORDS SUMMARY | 2019-02-20 20:49 | XMS REPORT ---
Author Author Migration, Doctor Organization [facility] Address Unknown Phone Unavailable Care Team Providers Care Computational Mathematician Name Role Phone Migration, Doctor Unavailable Unavailable PROBLEMS Type Condition ICD9-CM Code MPY18-FW Code Onset Dates Condition Status SNOMED Code Problem COPD (chronic obstructive pulmonary disease) J44.9 Active 37713279 Problem Type 2 diabetes mellitus without complications E11.9 Active 911954941 Problem Diabetes E11.9 Active 95074007 Problem Hypoglycemia E16.2 Active 780124398 Problem Bilateral claudication of lower limb I73.9 Active 884813583 Problem Type 2 diabetes mellitus with hyperglycemia E11.65 Active 093557405 Problem Chronic post-traumatic stress disorder (PTSD) F43.12 Active 946866673 Problem Hyperlipidemia, unspecified hyperlipidemia type E78.5 Active 10928054 Problem Lumbago M54.5 Active 730798910 Problem Hypertension, unspecified type I10 Active 19899250 Problem Tobacco abuse Z72.0 Active 84907178 Problem Hepatitis C B19.20 Active 70909358 Problem OAB (overactive bladder) N32.81 Active 011260871 Problem Hypertension, benign I10 Active 06662148 Problem Type 2 diabetes mellitus with hyperglycemia E11.65 Active 909936480 Problem Gastritis and duodenitis K29.90 Active 741522786 Problem History of hypothyroidism Z86.39 Active 158584439 Problem Primary insomnia F51.01 Active 1669210 Problem History of hypertension Z86.79 Active 666770653 Problem Bipolar I disorder with duy F31.10 Active 37926404 Problem Epilepsy G40.909 Active 63648319 Problem Bipolar I disorder with mood-congruent psychotic features F31.9 Active 936090368 Problem Panic disorder with agoraphobia F40.01 Active 74012468 Problem Seasonal allergic rhinitis due to other allergic trigger J30.89 Active 214470135 Problem Cervicalgia M54.2 Active 25617605 Problem Stress incontinence of urine N39.3 Active 43099135 Problem Other chronic pain G89.29 Active 14325472 Problem Bipolar affective disorder, currently depressed, mild F31.31 Active 341085274 Problem El's esophageal ulceration K22.10 Active 169340710 Problem Stress incontinence N39.3 Active 49918374 Problem Uncontrolled type 2 diabetes mellitus with hyperglycemia E11.65 Active 688890255 Problem Mood disorder F39 Active 38667719 Problem Bipolar disorder, current episode depressed, severe, without psychotic features F31.4 Active 422829692 Problem long term current use of insulin Z79.4 Active 014351173 Problem History of seizures Z87.898 Active 553167670 Problem Uncontrolled type 2 diabetes mellitus without complication, without long-term current use of insulin E11.65 Active 211810290 Problem History of high cholesterol Z86.39 Active 887651830 Problem Irritable bowel syndrome with diarrhea K58.0 Active 261253845 Problem Controlled type 2 diabetes mellitus without complication, without long -term current use of insulin E11.9 Active 281468166 Problem History of NE (myocardial infarction) I25.2 Active 346112198 Problem Chronic tension-type headache, not intractable G44.229 Active 260381539 Problem Fallen bladder N81.10 Active 217253199 ALLERGIES No Information ENCOUNTERS Encounter Location Date Diagnosis [facility] [id number] [place] [address] 25938- 1574 Jan, [facility] [address] 12458- 8878 Jan, [facility] [id number] [place] [address] 71091- 7150 Dec, [facility] [id number] [place] [address] 41385- 1834 Dec, Type 2 diabetes mellitus without complications E11.9 [facility] [id number] [place] [address] 87690- 5233 19 Dec, 2018 Bipolar disorder, current episode depressed, severe, without psychotic features F31.4 ; Panic disorder with agoraphobia F40.01 and Chronic post-traumatic stress disorder (PTSD) F43.12 [facility] [id number] [place] [address] 32066- 5341 Dec, Type 2 diabetes mellitus without complications E11.9 [facility] [address], [place] [address] 5217 14 Dec, 2018 Uncontrolled type 2 diabetes mellitus with hyperglycemia E11.65 and History of COPD Z87.09 [facility] [id number] [place] [address] 32906- 2051 13 Dec, 2018 Type 2 diabetes mellitus without complications E11.9 [facility] [id number] [place] [address] 38990- 7695 05 Dec, 2018 [facility] [id number] [place] [address] 35192- 7527 Dec, Panic disorder with agoraphobia F40.01 ; Chronic post- traumatic stress disorder (PTSD) F43.12 and Bipolar disorder, current episode depressed, severe, without psychotic features F31.4 [facility] [id number] [place] [address] 66574- 4620 04 Dec, 2018 Type 2 diabetes mellitus with hyperglycemia E11.65 [facility] [id number] [place] [address] 33266- 6704 Dec, [facility] [id number] [place] [address] 89214- 4237 Dec, [facility] [id number] [place] [address] 31741- 8450 Dec, [facility] [address] [place] [address] 80008- 9948 Dec, Type 2 diabetes mellitus without complications E11.9 [facility] [address] [place] [address] 52461- 4692 Nov, Type 2 diabetes mellitus without complications E11.9 [facility] [id number] [place] [address] 69019- 4208 Nov, Type 2 diabetes mellitus without complications E11.9 and Uncontrolled type 2 diabetes mellitus with hyperglycemia E11.65 [facility] [address] [place] [address] 60559- 6001 Nov, Panic disorder with agoraphobia F40.01 ; Bipolar affective disorder, currently depressed, mild F31.31 and Chronic post-traumatic stress disorder (PTSD) F43.12 [facility] [id number] [address] 2743 Oct, [facility] [id number] [address]- 1668 Oct, [facility] [id number] [place] [address] 585498- 6392 Sep, [facility] [id number] [address] 7702 Sep, [facility] [id number] [place] [address] 55671- 5076 Sep, [facility] [id number] [place] [address] 07710- 9293 Sep, Type 2 diabetes mellitus without complications E11.9 [facility] [address], [place] [address]- 8127 Sep, Type 2 diabetes mellitus without complications E11.9 [facility] [address] [address]- 7186 Aug, Type 2 diabetes mellitus without complications E11.9 [facility] [address] [address]- 0193 Aug, [facility] [id number] [place] [address] 76355- 7546 Aug, Type 2 diabetes mellitus without complications E11.9 [facility] [address] [address]- 5663 Aug, [facility] [address] 6829 Aug, [facility] [address], [place] [address]- 2306 Aug, Bipolar 2 disorder F31.81 ; Chronic post-traumatic stress disorder (PTSD) F43.12 and Panic disorder with agoraphobia F40.01 [facility] [id number] [place] [address] 47983- 1022 Aug, [facility] [id number] [place] [address] 67659- 4153 Jul, [facility] [address] 69039- 6554 Jul, Type 2 diabetes mellitus without complications E11.9 ; Fallen bladder N81.10 ; Stress incontinence of urine N39.3 ; Gall bladder disease K82.9 ; Periodontal abscess K05.219 ; Diarrhea, unspecified R19.7 ; Nausea with vomiting, unspecified R11.2 and Chronic tension-type headache, not intractable G44.229 [facility] [id number] [place] [address] 47474- 5801 Jul, [facility] [id number] [place] [address] 81542- 4015 Jul, [facility] [id number] [place] [address] 77604- 6683 Jul, [facility] [id number] [place] [address] 77929- 1835 Jul, Bipolar 2 disorder F31.81 ; Panic disorder with agoraphobia F40.01 and Chronic post-traumatic stress disorder (PTSD) F43.12 [facility] [id number] [place] [address] 18197- 1672 Jun, [facility] [id number] [place] [address] 70827- 3631 Jun, [facility] [id number] [place] [address] 75547- 1428 Jun, Lumbago M54.5 [facility] [id number] [place] [address] 17914- 6881 Jun, Type 2 diabetes mellitus with hyperglycemia E11.65 [facility] [address] [facility] [id number] [address]- 6301 Jun, [facility] [id number] [place] [address] 77663- 4551 Jun, Type 2 diabetes mellitus with hyperglycemia E11.65 ; El 's esophageal ulceration K22.10 and Lumbago M54.5 [facility] [id number] [place] [address] 18035- 4498 Jun, Type 2 diabetes mellitus with hyperglycemia E11.65 [facility] [id number] [place] [address] 76450- 6041 Jun, [facility] [id number] [place] [address] 88710- 0888 Jun, [facility] [id number] [place] [address] 54031- 3723 Jun, Bipolar affective disorder, currently depressed, mild F31.31 ; Chronic post-traumatic stress disorder (PTSD) F43.12 and Panic disorder with agoraphobia F40.01 [facility] [address] [place] [address] 57252- 2768 Jun, [facility] [address] [place] [address] 09390- 9119 Jun, [facility] [address] [place] [address] 26380- 9377 Jun, Type 2 diabetes mellitus with hyperglycemia E11.65 [facility] [address] [place] [address] 63308- 8524 Jun, Uncontrolled type 2 diabetes mellitus with hyperglycemia E11.65 [facility] [id number] [place] [address] 39444- 3497 Jun, [facility] [id number] [address]- 5167 May, Lumbago M54.5 [facility] [address] [id number] May, [facility] [address], [place] [address]- 7713 May, [facility] [address] [address]- 2377 May, [facility] [address], [place] [address]- 1518 May, [facility] [id number] [place] [address] 17278- 8949 May, [facility] [id number] [place] [address] 34907- 3997 May, [facility] [id number] [place] [address] 43625- 2878 May, [facility] [id number] [place] [address] 73005- 0742 May, Lumbago M54.5 [facility] [address] [address]- 7804 May, [facility] [id number] [place] [address] 50524- [address] Apr, [address] of the chest R93.8 [facility] [address] [address]- 2055 Apr, Bipolar 2 disorder F31.81 ; Chronic post-traumatic stress disorder (PTSD) F43.12 and Panic disorder with agoraphobia F40.01 [facility] [address], [place] [address]- [address] Apr, [address] of the chest R93.8 [facility] [id number] [address]- [address] Apr, [address] of the chest R93.8 [facility] [address] [address]- 9738 Apr, [facility] [id number] [place] [address] 94094- 3407 Apr, Type 2 diabetes mellitus with hyperglycemia E11.65 [facility] [id number] [place] [address] 23275- 8779 Apr, Controlled type 2 diabetes mellitus without complication, without long-term current use of insulin E11.9 ; Watery eyes H04.203 ; Low back pain M54.5 ; Other chronic pain G89.29 ; Chronic tension-type headache, not intractable G44.229 ; Uncontrolled type 2 diabetes mellitus without complication , without long-term current use of insulin E11.65 and Bronchitis J40 [facility] [address] 15215- 1029 Apr, [facility] [id number] [place] [address] 46149- 6738 Apr, Lumbago M54.5 [facility] [id number] [place] [address] 87072- 2075 March, [facility] [id number] [place] [address] 91935 -6443 March, Cough R05 ; Pneumonia due to infectious organism, unspecified laterality, unspecified part of lung J18.9 and Non-intractable vomiting with nausea, unspecified vomiting type R11.2 [facility] [id number] [place] [address] 55080- 7618 March, Bronchitis J40 [facility] [id number] [place] [address] 49135- 8926 March, [facility] [id number] [place] [address] 22467- 7809 March, El's esophageal ulceration K22.10 and Type 2 diabetes mellitus with hyperglycemia E11.65 [facility] [id number] [place] [address] 27834- 1157 March, Panic disorder with agoraphobia F40.01 ; Chronic post- traumatic stress disorder (PTSD) F43.12 and Bipolar 2 disorder F31.81 [facility] [address] [address]- 4920 March, Type 2 diabetes mellitus with hyperglycemia E11.65 [facility] [id number] [place] [address] 90967- 2166 March, [facility] [id number] [place] [address] 05452- 6257 March, Lumbago M54.5 [facility] [id number] [place] [address] 79146- 4899 March, [facility] [id number] [place] [address] 20487- 9901 March, Irritable bowel syndrome with diarrhea K58.0 ; Primary insomnia F51.01 ; Type 2 diabetes mellitus with hyperglycemia E11.65 and long term current use of insulin Z79.4 [facility] [id number] [place] [address] 70572- 6778 March, [facility] [id number] [place] [address] 98233- 6311 Jan, [facility] [id number] [place] [address] 08264- 5655 Jan, [facility] [id number] [place] [address] 31715- 9016 Jan, [facility] [address] [place] [address] 87127- 7151 Jan, [facility] [address] [place] [address] 11489- 8041 Jan, Dizziness R42 [facility] [id number] [place] [address] 30559- 1187 Jan, Bipolar affective disorder, currently depressed, mild F31.31 ; Panic disorder with agoraphobia F40.01 and Chronic post-traumatic stress disorder (PTSD) F43.12 [facility] [id number] [place] [address] 57451- 7269 17 Jan, 2018 Dizziness R42 [facility] [address] 49949- 5438 11 Jan, 2018 Chest pain, unspecified type R07.9 ; Exertional dyspnea R06.09 ; Hypertension, unspecified type I10 and Hyperlipidemia, unspecified hyperlipidemia type E78.5 [facility] [address] 18026- 9013 Jan, [facility] [id number] [place] [address] 41094- 8542 Jan, Lumbago M54.5 [facility] [address] 52386- 3209 04 Jan, 2018 El's esophageal ulceration K22.10 ; Blister (nonthermal ) of oral cavity, initial encounter S00.522A ; Local infection of the skin and subcutaneous tissue, unspecified L08.9 ; Type 2 diabetes mellitus with hyperglycemia E11.65 ; [facility] current use of insulin Z79.4 and Stress incontinence N39.3 [facility] [address] 69354- 1687 27 Dec, 2017 [facility] [id number] [place] [address] 20959- 3493 27 Dec, 2017 [facility] [id number] [place] [address] 17891- 3517 19 Dec, 2017 [facility] [address] [id number] 16 Dec, 2017 Dental examination Z01.20 [facility] [address] 23967- 7901 15 Dec, 2017 Acute pain of right knee M25.561 [facility] [id number] [place] [address] 85810- 3430 14 Dec, 2017 [address] [address] 86354- 8611 Dec, [facility] [id number] [place] [address] 16656- 2570 14 Dec, 2017 Lumbago M54.5 ; Acute pain of right knee M25.561 and Seasonal allergic rhinitis due to other allergic trigger J30.89 [facility] [id number] [place] [address] 04534- 0420 Dec, Type 2 diabetes mellitus with hyperglycemia E11.65 [facility] [address] 97553- 6937 Dec, [facility] [id number] [place] [address] 33922- 9935 Dec, [facility] [id number] [place] [address] 08485- 7795 23 Dec, 2017 [facility] [facility] [address] 66972- 1583 Dec, [facility] [address] 64665- 1852 15 Dec, 2017 Chronic post-traumatic stress disorder (PTSD) F43.12 and Panic disorder with agoraphobia F40.01 [facility] [id number] [place] [address] 68554- 1864 13 Dec, 2017 Low back pain M54.5 [facility] [id number] [place] [address] 99524- 2097 12 Dec, 2017 Type 2 diabetes mellitus with hyperglycemia E11.65 ; long term current use of insulin Z79.4 ; Low back pain M54.5 ; Other chronic pain G89.29 and Encounter for therapeutic drug level monitoring Z51.81 [facility] [address] 94149- 4218 09 Dec, 2017 Coughing R05 [facility] [id number] [place] [address] 77782- 2191 Dec, [facility] [address] [place] [id number] Dec, Dental examination Z01.20 [facility] [id number] [place] [address] 49679- 7373 Nov, Type 2 diabetes mellitus without complications E11.9 and Encounter for therapeutic drug level monitoring Z51.81 [facility] [id number] [place] [address] 40155- 0814 Nov, [facility] [id number] [place] [address] 00004- 2409 Oct, Type 2 diabetes mellitus without complications E11.9 [facility] [address] 24419- 2041 Oct, Type 2 diabetes mellitus with hyperglycemia E11.65 [facility] [id number] [place] [address] 14623- 9046 Aug, Type 2 diabetes mellitus without complications E11.9 [facility] [id number] [place] [address] 64391- 4167 Aug, Type 2 diabetes mellitus without complications E11.9 ; Hypoglycemia E16.2 ; Lumbago M54.5 ; Stress incontinence of urine N39.3 and History of NE (myocardial infarction) I25.2 [facility] [address] [place] [address] 33689- 5731 Jun, [facility] [address] [place] [address] 28307- 5290 May, [facility] [id number] [place] [address] 35004- 2772 Apr, Panic disorder with agoraphobia F40.01 [facility] [id number] [place] [address] 55233- 0767 Apr, Panic disorder with agoraphobia F40.01 [facility] [id number] [place] [address] 67570- 4764 Apr, [facility] [facility] [address] [place] [address]- 3991 March, Other chronic pain G89.29 [facility] [id number] [address]- 1589 March, [facility] [id number] [address]- 6659 March, [facility] [id number] [place] [address] 80693- 6544 March, [facility] [id number] [place] [address] 62885- 9549 March, [facility] [id number] [place] [address] 53815- 5893 March, Type 2 diabetes mellitus without complications E11.9 [facility] [id number] [place] [address] 06837- 2866 March, Diarrhea, unspecified type R19.7 [facility] [id number] [place] [address] 86578- 6299 March, Bipolar 2 disorder F31.81 ; Chronic post-traumatic stress disorder (PTSD) F43.12 and Type 2 diabetes mellitus with hyperglycemia E11.65 [facility] [address], [place] [address]- 4418 March, [facility] [address], [place] [address]- 9483 March, [facility] [address], [place] [address]- 2639 March, Hypertension, benign I10 ; Type 2 diabetes mellitus with hyperglycemia E11.65 ; Hepatitis C B19.20 ; Gastritis and duodenitis K29.90 and Dysuria R30.0 [facility] [address], [place] [address]- 3553 March, Hypertension, benign I10 ; Type 2 diabetes mellitus with hyperglycemia E11.65 ; Hepatitis C B19.20 ; Gastritis and duodenitis K29.90 and Dysuria R30.0 [facility] [address], [place] [address]- 1812 March, Panic disorder with agoraphobia F40.01 ; Chronic post- traumatic stress disorder (PTSD) F43.12 ; Epilepsy G40.909 and Bipolar I disorder with mood-congruent psychotic features F31.9 [facility] [address] [address]- 4006 March, [facility] [id number] [place] [address] 80632- 3733 March, Type 2 diabetes mellitus with hyperglycemia E11.65 [facility] [id number] [place] [address] 68038- 4986 18 Jan, 2017 Bipolar I disorder with duy F31.10 [facility] [id number] [place] [address] 50557- 8466 17 Jan, 2017 Bipolar 2 disorder F31.81 ; Chronic post-traumatic stress disorder (PTSD) F43.12 and Type 2 diabetes mellitus with hyperglycemia E11.65 [facility] [address] [place] [address] 36805- 8393 17 Jan, 2017 [facility] [id number] [place] [address] [id number] [id number] 17 Jan, 2017 [facility] [id number] [address] 14 Jan, 2017 Panic disorder with agoraphobia F40.01 [facility] [id number] [address] 13 Jan, 2017 Panic disorder with agoraphobia F40.01 ; Bipolar I disorder with mood-congruent psychotic features F31.9 ; Chronic post-traumatic stress disorder (PTSD) F43.12 and Epilepsy G40.909 [facility] [address] [address] Jan, [facility] [id number] [place] [address] 32759- 2655 Jan, [facility] [address], [place] [address] 2811 10 Jan, 2017 Type 2 diabetes mellitus without complications E11.9 and Hypoglycemia E16.2 [facility] [id number] [place] [address] 83162- 7899 07 Jan, 2017 Type 2 diabetes mellitus without complications E11.9 ; Primary insomnia F51.01 and Hypertension, benign I10 [facility] [id number] [place] [address] 60336- 6626 06 Jan, 2017 [facility] [id number] [place] [address] [id number] Jan, [facility] [id number] [place] [address] 64528- 1066 31 Dec, 2016 Type 2 diabetes mellitus with hyperglycemia E11.65 [facility] [id number] [place] [address] 84026- 0388 Dec, [facility] [id number] [place] [address] 59649- 6282 Dec, Bipolar 2 disorder F31.81 ; Panic disorder with agoraphobia F40.01 ; Chronic post-traumatic stress disorder (PTSD) F43.12 and Epilepsy G40.909 [facility] [address], [place] [address] 7029 Dec, [facility] [id number] [place] [address] 13707- 8905 14 Dec, 2016 [facility] [address] [place] [address] 65788- 7478 Dec, Bipolar 2 disorder F31.81 ; Panic disorder with agoraphobia F40.01 ; Chronic post-traumatic stress disorder (PTSD) F43.12 and Epilepsy G40.909 [facility] [address] [address] 7121 Dec, [facility] [id number] [place] [address] 36940- 4244 Dec, [facility] [id number] [place] [address] 47188- 0167 Dec, [facility] [id number] [place] [address] 06463- 8865 Dec, Type 2 diabetes mellitus with hyperglycemia E11.65 ; long term current use of insulin Z79.4 and Lumbago M54.5 [facility] [id number] [place] [address] 24022- 9337 Dec, [facility] [id number] [place] [address] 40750- 1136 Dec, [facility] [id number] [place] [address] 01109- 9968 Dec, [facility] [id number] [place] [address] 45040 -7220 Dec, Pain of left leg M79.605 and Pain in right leg M79.604 [facility] [id number] [place] [address] 08893- 2891 Dec, [facility] [id number] [place] [address] 76583- 5548 Dec, Type 2 diabetes mellitus with hyperglycemia E11.65 [facility] [id number] [place] [address] 63915- 6920 Dec, [facility] [id number] [place] [address] 00567- 3133 Dec, Type 2 diabetes mellitus with hyperglycemia E11.65 ; long term current use of insulin Z79.4 ; Vagina, candidiasis B37.3 and Other chronic pain G89.29 [facility] [id number] [place] [address] 48196- 4549 Nov, Panic disorder with agoraphobia F40.01 [facility] [id number] [place] [address] 49601- 5602 Nov, [facility] [id number] [address] 7907 Nov, [facility] [id number] [place] [address] 91060- 5935 Nov, Hypoglycemia E16.2 [facility] [id number] [place] [address] 94017- 4451 Nov, [facility] [id number] [place] [address] 21199- 6077 Nov, [facility] [id number] [place] [address] 06884- 8563 Nov, [facility] [id number] [place] [address] 78592- 8730 Nov, Type 2 diabetes mellitus with hyperglycemia E11.65 and long term current use of insulin Z79.4 [facility] [id number] [place] [address] 79933- 7365 Nov, Panic disorder with agoraphobia F40.01 ; Bipolar 2 disorder F31.81 ; Chronic post-traumatic stress disorder (PTSD) F43.12 and Epilepsy G40.909 [facility] [id number] [place] [address] 49592- 6456 Nov, Panic disorder with agoraphobia F40.01 [facility] [address] [place] [address] 18661- 9874 Oct, [facility] [id number] [place] [address] 14552- 5287 Oct, [facility] [id number] [place] [address] 93766- 6590 Oct, Bipolar 2 disorder F31.81 ; Panic disorder with agoraphobia F40.01 and Mood disorder F39 [facility] [address] [place] [address] 76687- 0348 Oct, Diabetes E11.9 ; Type 2 diabetes mellitus with hyperglycemia E11.65 and [facility] current use of insulin Z79.4 [facility] [id number] [place] [address] 85803- 0900 Oct, [facility] [id number] [place] [address] 01129- 6259 Sep, [facility] [id number] [place] [address] 81850- 7726 Sep, Bipolar 2 disorder F31.81 and Mood disorder F39 [facility] [id number] [place] [address] 90373- 7589 Sep, [facility] [id number] [place] [address] 19033- 3097 Sep, Uncontrolled type 2 diabetes mellitus without complication, without long-term current use of insulin E11.65 [facility] [id number] [place] [address] 27115- 1379 Sep, [facility] [id number] [place] [address] 26367- 7903 Sep, [facility] [id number] [place] [address] 41721- 2073 Sep, [facility] [id number] [place] [address] 83287- 6050 Sep, [facility] [id number] [place] [address] 31698- 8668 Sep, Bipolar 2 disorder F31.81 ; Chronic post-traumatic stress disorder (PTSD) F43.12 ; Panic disorder with agoraphobia F40.01 and Epilepsy G40.909 [facility] [id number] [place] [address] 09855- 1690 Sep, Bipolar 2 disorder F31.81 ; PTSD (post-traumatic stress disorder) F43.10 and Panic disorder with agoraphobia F40.01 [facility] [id number] [place] [address] 39919- 3125 Sep, [facility] [address], [place] [address]- 5845 Aug, History of seizures Z87.898 ; Panic disorder with agoraphobia F40.01 and Bipolar 2 disorder F31.81 [facility] [id number] [address]- 7380 Aug, [facility] [id number] [place] [address] 30471- 4443 17 Aug, 2016 [facility] [id number] [place] [address] 87205- 8132 Aug, [facility] [id number] [place] [address] 46407- 3697 Aug, [facility] [id number] [place] [address] 42883- 6123 Aug, [facility] [id number] [place] [address] 91682- 7754 Aug, [facility] [id number] [place] [address] 27338- 5463 Aug, Hypoglycemia E16.2 and Bilateral impacted cerumen H61.23 [facility] [id number] [place] [address] 00413- 7545 Aug, [facility] [id number] [place] [address] 13839- 6383 Jul, [facility] [id number] [place] [address] 24077- 1707 Jul, [facility] [id number] [place] [address] 58480- 0987 15 Jul, 2016 Bipolar 2 disorder F31.81 ; Panic disorder with agoraphobia F40.01 ; PTSD (post-traumatic stress disorder) F43.10 and Epilepsy G40.909 [facility] [id number] [place] [address] 82201- 0891 Jul, [facility] [id number] [place] [address] 89490- 8243 Jul, Type 2 diabetes mellitus without complications E11.9 and Coughing R05 [facility] [id number] [place] [address] 79987- 2480 Jul, [facility] [id number] [place] [address] 46530- 7777 Jun, [facility] [id number] [place] [address] 04653- 4128 Jun, Bipolar 2 disorder F31.81 ; PTSD (post-traumatic stress disorder) F43.10 and Panic disorder with agoraphobia F40.01 [facility] [id number] [place] [address] 13440- 1880 Jun, [facility] [id number] [place] [address] 78716- 2423 Jun, [facility] [id number] [place] [address] 38441- 5796 Jun, [facility] [id number] [place] [address] 70009- 2945 Jun, Type 2 diabetes mellitus without complications E11.9 and COPD (chronic obstructive pulmonary disease) J44.9 [facility] [address] [place] [address] [id number] May, Dental examination Z01.20 and Dental caries K02.9 [facility] [address] [place] [address] 30350- 2108 May, Bipolar 2 disorder F31.81 ; PTSD (post-traumatic stress disorder) F43.10 and Panic disorder with agoraphobia F40.01 [facility] [address] [place] [address] 89824- 8028 May, Lumbago with sciatica, right side M54.41 ; Other chronic pain G89.29 and Uncontrolled type 2 diabetes mellitus without complication, without long-term current use of insulin E11.65 [place] [address], [place] [address]- 5026 May, Chronic bronchitis, unspecified chronic bronchitis type J42 [facility] [address] [place] [address] 71856- 4006 May, [facility] [id number] [place] [address] 50728- 3988 May, [facility] [id number] [place] [address] 50597- 5705 May, Chest pain, unspecified type R07.9 ; [...] and Bipolar 2 disorder F31.81 [facility] [id number] [place] [address] 36184- 9820 May, Bipolar 2 disorder F31.81 ; Panic disorder with agoraphobia F40.01 and Tobacco abuse Z72.0 [facility] [address] [place] [address] 41618- 4842 Apr, [facility] [id number] [place] [address] 67464- 1219 Apr, [facility] [id number] [place] [address] 50973- 5038 Apr, [facility] [id number] [place] [address] 31644- 3489 Apr, Bipolar 2 disorder F31.81 ; Panic disorder with agoraphobia F40.01 and PTSD (post-traumatic stress disorder) F43.10 [facility] [address] [place] [address] 54121- 3879 Apr, Chronic bronchitis, unspecified chronic bronchitis type J42 ; Cervical neuritis M54.12 and Thoracic neuritis M54.14 [place] [address] 12600- 8745 15 Apr, 2016 [place] [address] 34809- 1592 15 Apr, 2016 Cervicalgia M54.2 [place] [address] 96252- 8017 14 Apr, 2016 Bipolar 2 disorder F31.81 ; Panic disorder with agoraphobia F40.01 and PTSD (post-traumatic stress disorder) F43.10 [facility] [place] [address] 97942 -7680 13 Apr, 2016 [facility] [address] 03268 -1347 09 Apr, 2016 Cough R05 and Tobacco dependence F17.200 [place] [address] 64086- 5553 06 Apr, 2016 [place] [address] 58765- 6388 Apr, [place] [address] 82956- 6151 March, Bipolar 2 disorder F31.81 ; Panic disorder with agoraphobia F40.01 and Generalized anxiety disorder F41.1 [place] [address] 74859- 3792 March, Closed displaced fracture of fifth metatarsal bone of right foot with routine healing, subsequent encounter S92.351D [place] [address] 37444- 7831 March, Bronchitis J40 [place] [address] 31620- 6929 March, [facility] [address] 55078- 6074 March, [facility] [address] [place] [address] 76487- 3897 March, Foot pain, right M79.671 ; Cervicalgia M54.2 and Controlled type 2 diabetes mellitus without complication, 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 [facility] [id number] [place] [address] 64820- 2228 March, Fracture of fifth metatarsal bone of right foot S92.351A [facility] [id number] [place] [address] 28100- 8516 March, [facility] [id number] [place] [address] 00261- 9227 Jan, Fracture of fifth metatarsal bone of right foot S92.351A [facility] [id number] [place] [address] 49902- 3434 Jan, Bipolar 2 disorder F31.81 ; PTSD (post-traumatic stress disorder) F43.10 ; Panic disorder with agoraphobia F40.01 and Epilepsy G40.909 [facility] [id number] [place] [address] 05263- 4688 Jan, History of NE (myocardial infarction) I25.2 and History of high cholesterol Z86.39 [facility] [place] [address] [place] [address] 21044- 1781 Jan, Bipolar 2 disorder F31.81 ; Panic disorder with agoraphobia F40.01 ; Tobacco abuse Z72.0 and PTSD (post-traumatic stress disorder) F43.10 [place] [address] [place] [address] 97246- 9631 Jan, Fracture of fifth metatarsal bone of right foot S92.351A [facility] [place] [id number] [place] [address] 44344- 1177 Jan, [facility] [id number] [place] [address] 15435- 0105 Jan, History of high cholesterol Z86.39 [facility] [id number] [place] [address] 31172- 6645 Jan, History of NE (myocardial infarction) I25.2 [facility] [id number] [place] [address] 98700- 2721 Jan, [facility] [id number] [place] [address] 09695- 0751 Dec, Back pain M54.9 ; Diabetes E11.9 ; Right knee pain M25.561 and Chest pain R07.9 [facility] [id number] [place] [address] 08015- 1059 Dec, [facility] [id number] [place] [address] 09621- 8463 Dec, [facility] [id number] [place] [address] 28732- 3416 Dec, Cervicalgia M54.2 [facility] [id number] [place] [address] 12962- 3261 Dec, Bipolar 2 disorder F31.81 ; PTSD (post-traumatic stress disorder) F43.10 ; Panic disorder with agoraphobia F40.01 and Epilepsy G40.909 [facility] [place] [id number] [place] [address] 85468- 1754 Dec, Bipolar 2 disorder F31.81 ; PTSD (post-traumatic stress disorder) F43.10 and Panic disorder with agoraphobia F40.01 [facility] [id number] [place] [address] 77810- 1041 Dec, Diabetes E11.9 [facility] [id number] [place] [address] 03093- 7989 Dec, [facility] [address] [place] [address] 98532- 0522 Dec, Other chronic pain G89.29 ; Hepatitis C B19.20 and History of seizures Z87.898 [facility] [address] [address]- 2800 24 Dec, 2015 [facility] [id number] [place] [address] 08020- 3200 Dec, Bipolar 2 disorder F31.81 and Other chronic pain G89.29 [facility] [id number] [place] [address] 17903- 5073 Dec, Cervicalgia M54.2 and Diabetes E11.9 [facility] [id number] [place] [address] 42868- 6311 Dec, [facility] [id number] [place] [address] 64357- 1571 18 Dec, 2015 [facility] [id number] [place] [address] 47882- 8144 Dec, [facility] [id number] [place] [address] 81739- 6923 Dec, [facility] [id number] [place] [address] 42227- 4584 Dec, Type 2 diabetes mellitus without complications E11.9 [facility] [id number] [place] [address] 01545- 1110 10 Dec, 2015 [facility] [id number] [place] [address] 03301- 2591 Dec, History of seizures Z87.898 and Hepatitis C B19.20 [facility] [address] [place] [address] 40676- 9528 Dec, Hepatitis C B19.20 [facility] [id number] [place] [address] 62443- 6349 Dec, [facility] [address] [place] [address] 57098- 4855 Dec, Cervicalgia M54.2 ; COPD (chronic obstructive pulmonary disease) J44.9 and Hepatitis C B19.20 [place] [id number] [place] [address] 26508- 9078 Dec, Bipolar 2 disorder F31.81 ; History of hypertension Z86.79 ; History of anxiety Z86.59 ; Panic disorder with agoraphobia F40.01 and Epilepsy G40.[address] 35930- 2690 Nov, [address] 32865- 9157 Nov, [address] 46877- 3180 Nov, History of seizures Z87.898 ; OAB (overactive bladder) N32.81 ; Lumbago M54.5 ; Other chronic pain G89.29 ; Cervicalgia M54.2 ; Tobacco abuse Z72.0 ; Tobacco abuse counseling Z71.6 and Impaired fasting glucose R73.[address] 32037- 7304 Nov, Bipolar 2 disorder F31.81 ; PTSD (post-traumatic stress disorder) F43.10 ; History of anxiety Z86.59 ; History of COPD Z87.09 ; Panic disorder with agoraphobia F40.01 and Moderate depressed bipolar I disorder F31.[address] 65938- 0356 12 Nov, 2015 PTSD (post-traumatic stress disorder) F43.10 [facility] [id number] [place] [address] [id number] 11 Nov, 2015 Dental examination Z01.20 and Dental caries K02.9 [place] [id number] [place] [address] 62542- 6280 08 Nov, 2015 History of hypertension Z86.79 ; History of hypothyroidism Z86.39 ; History of high cholesterol Z86.39 ; History of COPD Z87.09 and Overactive bladder N32.81 [place] [id number] [place] [address] 21195- 5031 Nov, Bipolar 2 disorder F31.81 and PTSD (post-traumatic stress disorder) F43.10 [place] [address] [id number] [place] [address] 22563- 5854 Nov, PTSD (post-traumatic stress disorder) F43.10 ; Panic disorder with agoraphobia F40.01 ; Epilepsy G40.909 and Moderate depressed bipolar I disorder F31.32 [place] [id number] [place] [address] 37346- 7775 Nov, [place] [address] 58728- 7749 Nov, [place] [address] 35974- 1484 Oct, [place] [address] 68890- 5070 Oct, Generalized anxiety disorder F41.1 ; Major depression, recurrent F33.9 and PTSD (post-traumatic stress disorder) F43.10 [place] [address] [place] [place] [id number] [place] [address] 55807- 3184 Oct, Elevated fasting glucose R73.01 [place] [address] [place] [id number] [place] [address] 87525- 5365 Oct, Elevated fasting glucose R73.01 [place] [address] [place] [id number] [place] [address] 66035- 9019 Oct, History of COPD Z87.09 [place] [address] [place] [id number] [place] [address] 05760- 6803 15 Oct, 2015 General medical exam Z00.00 ; History of hypertension Z86.79 ; History of hypothyroidism Z86.39 ; History of hepatitis Z86.19 ; History of high cholesterol Z86.39 and History of seizures Z87.898 [place] [address] 99604- 8226 Oct, General medical exam Z00.00 ; History of hypertension Z86.79 ; History of hypothyroidism Z86.39 ; Bipolar 2 disorder F31.81 ; PTSD ( post-traumatic stress disorder) F43.10 ; History of hepatitis Z86.19 ; History of high cholesterol Z86.39 ; History of anxiety Z86.59 ; History of seizures Z87.898 ; History of NE (myocardial infarction) I25.2 and History of COPD Z87.09 [place] [id number] [place] [address] 61032- 7579 10 Oct, 2015 Generalized anxiety disorder F41.1 ; Depression F32.9 and PTSD (post-traumatic stress disorder) F43.10 [place] [address] [place] [id number] [place] [address] 38581- 4088 Jan, [place] [address] [place] [id number] [place] [address] 64770- 8286 Jan, [place] [id number] [place] [address] 90230- 5322 Jun, [facility] [address] [place] [id number] Jun, [place] [address] [place] [id number] [place] [address] 15395- 4759 May, [place] [id number] [place] [address] 38003- 4077 May, [facility] [address] [id number] May, [place] [address] [id number] [place] [id number] May, [facility] [address], [place] [id number] May, [place] [id number] [place] [phone] May, IMMUNIZATIONS No Known Immunizations SOCIAL HISTORY Never Assessed REASON FOR VISIT EMR[facility] PLAN OF CARE VITAL SIGNS MEDICATIONS Medication Instructions Dosage Frequency Start Date End Date Duration Status Nitrostat 0.4 mg 1 tablet by Sublingual route 3 times per day PRN chest pain; may repeat q 5 min x 2 May, Active Atenolol 25 mg 1 tablet by Oral route 1 time per day May, Active buspirone 10 mg take 1 tablet (10 mg) by oral route 2 times per day May, Active Benadryl 25 mg take 1 capsule (25 mg) by oral route 3 times per day May, Active Acyclovir 400 mg 2 tablet by Oral route 3 times per day for 5 days May, Active RESULTS No Results PROCEDURES No Known [...]
[2019-02-20 20:50] LABS: ALANINE AMINOTRANSFERASE 17 U/L (0-55); ALBUMIN 4.3 GM/DL (3.2-4.5); ALKALINE PHOSPHATASE 92 U/L (40-136); BILIRUBIN,TOTAL 0.4 MG/DL (0.1-1.0); BUN/CREATININE RATIO 11; CARBON DIOXIDE 21 MMOL/L (21-32); CHLORIDE 101 MMOL/L (98-107); CREATININE SERUM 0.88 MG/DL (0.60-1.30); GFR ESTIMATED > 60; GLUCOSE 361 MG/DL (70-105); LIPASE 77 U/L (8-78); SODIUM 135 MMOL/L (135-145); TOTAL PROTEIN 6.9 GM/DL (6.4-8.2)
[2019-02-20] MEDS ORDERED: LORazepam INJ 2 MG/ML (ATIVAN) VIAL IVP ONE (21:45)
--- OUTSIDE RECORDS SUMMARY | 2019-02-20 22:18 | XMS REPORT | Continuity of Care Document ---
Author Organization Unknown Address Unknown Allergies Active Description Code Type Severity Reaction Onset Reported/Identified Relationship to Patient Clinical Status Yes METFORMIN MODERATE ANAPHYLACTIC SHOCK Yes Penicillins [id number] Drug Allergy Unknown N/A 01/26/2017 Yes Iodinated Contrast- Oral and IV Dye [id number] Drug Allergy Unknown N/A Yes fentanyl [id number] Drug Allergy Mild GI UPSET 01/19/2019 Medications [...] 05/16/2014 GERARDO KISER APRN 782.1 RASH 06/06/2014 MARGI MENDOZANGERARDO T 477.9 RHINITIS 06/06/2014 GERARDO KISER APRN 784.0 HEADACHE 01/23/2016 CHAVA SHAFER MD Ot M54.2 01/29/2016 CHAVA SHAFER MD Bridget Ot M54.2 02/10/2016 HOLLIS KRUSE, CHAVA Gill [...] 05/14/2016 PRESTON HOLLEY MD Ot Z79.899 OTHER USP (CURRENT) DRUG THERAPY 05/14/2016 PRESTON HOLLEY MD Ot R56.9 UNSPECIFIED CONVULSIONS 05/15/2016 PRESTON HOLLEY MD Ot R56.9 UNSPECIFIED CONVULSIONS 05/15/2016 PRESTON HOLLEY MD K Ot R56.9 UNSPECIFIED CONVULSIONS 05/15/2016 PRESTON HOLLEY MD Ot 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 05/15/2016 RENETTA KRUSE FACCherise, ALI FACP CCDS Ot E11.9 TYPE 2 DIABETES [...] FACC, ALI FACP CCDS Ot Z79.899 OTHER USP (CURRENT) DRUG THERAPY 05/18/2016 PRESTON HOLLEY MD K Ot R56.9 UNSPECIFIED CONVULSIONS 05/28/2016 PRESTON HOLLEY MD K Ot R56.9 UNSPECIFIED CONVULSIONS 05/28/2016 PRESTON HOLLEY MD K Ot R56.9 UNSPECIFIED CONVULSIONS 05/28/2016 FLORENCIO HOLLEY MDRA K Ot 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 06/10/2016 RENETTA KRUSE FACC, [...] PAIN IN LEG, UNSPECIFIED 06/10/2016 RENETTA KRUSE [facility], ALI FACP CCDS Ot R07.89 OTHER CHEST PAIN 06/10/2016 RENETTA KRUSE [facility], [facility] FACP CCDS Ot R60.9 EDEMA, UNSPECIFIED 06/10/2016 RENETTA KRUSE [facility], ALI FACP CCDS Ot Z68.34 BODY MASS INDEX (BMI) 34.0-34.9, ADULT 06/10/2016 RENETTA KRUSE [facility] CCD[facility] Ot Z72.0 TOBACCO USE 06/10/2016 RENETTA KRUSE [facility], ALI FACP CCDS Ot Z79.899 OTHER USP (CURRENT) DRUG THERAPY 06/30/2016 PRESTON HOLLEY MD K Ot R56.9 UNSPECIFIED CONVULSIONS 06/30/2016 PRESTON HOLLEY MD K Ot R56.9 UNSPECIFIED CONVULSIONS 07/16/2016 PRESTON HOLLEY MD K Ot R56.9 UNSPECIFIED CONVULSIONS 08/15/2016 PRESTON HOLLEY MD K Ot R56.9 UNSPECIFIED CONVULSIONS 08/15/2016 PRESTON HOLLEY MD K Ot R56.9 UNSPECIFIED CONVULSIONS 08/15/2016 PRESTON HOLLEY MD K Ot 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 08/15/2016 PRESTON HOLLEY MD [...] PRESTON HOLLEY MD K Ot 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 09/23/2016 LEYDI KRUSE, PRESTON Montelongo Ot R56.9 UNSPECIFIED CONVULSIONS 09/23/2016 KAMILLE CHAVEZ DO Ot E66.9 OBESITY, UNSPECIFIED 09/23/2016 KAMILLE CHAVEZ DO Ot J44.9 CHRONIC OBSTRUCTIVE PULMONARY DISEASE, U 09/23/2016 SCOTT KAMILLE M Ot Z72.0 TOBACCO USE 09/23/2016 KAMILLE CHAVEZ DO Ot E66.9 OBESITY, UNSPECIFIED 09/23/2016 SCOTTKAMILLE CROW DO Ot J43.9 EMPHYSEMA, UNSPECIFIED 09/23/2016 SCOTT KAMILLE M Ot Z72.0 TOBACCO USE 11/19/2016 KAMILLE CHAVEZ DO Ot E66.9 OBESITY, UNSPECIFIED 11/19/2016 KAMILLE CHAVEZ DO Ot J43.9 EMPHYSEMA, UNSPECIFIED 11/19/2016 SCOTTTRISTIN FOREMAN KAMILLE M Ot Z72.0 TOBACCO USE 12/21/2016 KAMILLE CHAVEZ DO Ot R06.83 SNORING 12/22/2016 KAMILLE CHAVEZ DO Ot R06.83 SNORING 12/26/2016 SCOTT FOREMAN KAMILLE M Ot R06.83 SNORING 01/14/2017 LEYDI KRUSE, PRESTON Montelongo Ot R56.9 UNSPECIFIED CONVULSIONS 01/20/2017 GLORIA WALDEN APRN Ot J98.4 OTHER DISORDERS OF LUNG 01/20/2017 GLORIA WALDEN APRN Ot R56.9 UNSPECIFIED CONVULSIONS 01/23/2017 PRESTON HOLLEY [...] UNSPECIFIED 01/23/2017 GALA TALLEY APRN Ot Z79.84 CRANE ENGINEER (CURRENT) USE OF ORAL HYPOGLYC 01/23/2017 GALA TALLEY APRN Ot 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 01/25/2017 GALA TALLEY AGILE SCRUM COACH Ot E11.9 TYPE 2 DIABETES MELLITUS WITHOUT COMPLIC 01/25/2017 GALA TALLEY AGILE SCRUM COACH Ot I10 ESSENTIAL (PRIMARY) HYPERTENSION 01/25/2017 GALA TALLEY AGILE SCRUM COACH Ot J44.9 CHRONIC OBSTRUCTIVE PULMONARY DISEASE, U 01/25/2017 GALA TALLEY AGILE SCRUM COACH Ot K57.32 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 01/25/2017 GALA TALLEY AGILE SCRUM COACH Ot R19.7 DIARRHEA, UNSPECIFIED 01/25/2017 GALA TALLEY AGILE SCRUM COACH Ot Z79.84 USP (CURRENT) USE OF ORAL HYPOGLYC 01/25/2017 GALA TALLEY AGILE SCRUM COACH Ot 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 01/27/2017 STIVEN RAYMOND MD [...] ABS 01/27/2017 STIVEN RAYMOND MD Ot Z79.84 CRANE ENGINEER (CURRENT) USE OF ORAL HYPOGLYC 01/27/2017 STIVEN [...] ABS 01/27/2017 STIVEN RAYMOND MD Ot Z79.84 CRANE ENGINEER (CURRENT) USE OF ORAL HYPOGLYC 01/29/2017 GALA [...] UNSPECIFIED 01/29/2017 GALA TALLEY APRN Ot Z79.84 USP (CURRENT) USE OF ORAL HYPOGLYC 01/29/2017 GALA TALLEY APRN Ot Z79.899 OTHER USP (CURRENT) DRUG THERAPY 02/12/2017 GLOIRA WALDEN APRN Ot J98.4 OTHER DISORDERS OF [...] UNSPECIFIED 03/21/2017 GALA TALLEY APRN Ot Z79.4 CRANE ENGINEER (CURRENT) USE OF INSULIN 03/21/2017 GALA TALLEY APRN Ot Z79.82 CRANE ENGINEER (CURRENT) USE OF ASPIRIN 03/21/2017 GALA TALLEY APRN Ot Z79.899 OTHER USP (CURRENT) DRUG THERAPY 03/23/2017 GALA TALLEY APRN Ot E11.9 TYPE 2 DIABETES MELLITUS WITHOUT COMPLIC 03/23/2017 GALA TALLEY APRN Ot F17.210 NICOTINE DEPENDENCE, CIGARETTES, UNCOMPL 03/23/2017 GALA TALLEY AGILE SCRUM COACH Ot I10 ESSENTIAL (PRIMARY) HYPERTENSION 03/23/2017 GALA TALLEY APRN Ot J44.9 CHRONIC OBSTRUCTIVE PULMONARY DISEASE, U 03/23/2017 GALA TALLEY APRN Ot K52.9 NONINFECTIVE GASTROENTERITIS AND COLITIS 03/23/2017 GALA TALLEY APRN Ot K57.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 03/23/2017 GALA TALLEY AGILE SCRUM COACH Ot R19.7 DIARRHEA, UNSPECIFIED 03/23/2017 GALA TALLEY APRN Ot Z79.4 USP (CURRENT) USE OF INSULIN 03/23/2017 GALA TALLEY APRN Ot Z79.82 CRANE ENGINEER (CURRENT) USE OF ASPIRIN 03/23/2017 GALA TALLEY APRN Ot Z79.899 OTHER USP (CURRENT) DRUG THERAPY 03/24/2017 GALA TALLEY APRN Ot E11.9 TYPE 2 DIABETES MELLITUS WITHOUT COMPLIC 03/24/2017 GALA TALLEY APRN Ot I10 ESSENTIAL (PRIMARY) HYPERTENSION 03/24/2017 GALA TALLEY APRN Ot J44.9 CHRONIC OBSTRUCTIVE PULMONARY DISEASE, U 03/24/2017 GALA TALLEY APRN Ot R07.9 CHEST PAIN, UNSPECIFIED 03/24/2017 GALA TALLEY APRN Ot Z79.4 USP (CURRENT) USE OF INSULIN 03/24/2017 GALA TALLEY APRN Ot Z79.82 CRANE ENGINEER (CURRENT) USE OF ASPIRIN 03/24/2017 GALA TALLEY APRN Ot 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 03/26/2017 GALA TALLEY APRN Ot E11.9 TYPE 2 DIABETES MELLITUS WITHOUT COMPLIC 03/26/2017 GALA TALLEY APRN Ot I10 ESSENTIAL (PRIMARY) HYPERTENSION 03/26/2017 GALA TALLEY APRN Ot J44.9 CHRONIC OBSTRUCTIVE PULMONARY DISEASE, U 03/26/2017 GALA TALLEY APRN Ot R07.9 CHEST PAIN, UNSPECIFIED 03/26/2017 GALA TALLEY APRN Ot Z79.4 USP (CURRENT) USE OF INSULIN 03/26/2017 GALA TALLEY AGILE SCRUM COACH Ot Z79.82 USP (CURRENT) USE OF ASPIRIN 03/26/2017 GALA TALLEY AGILE SCRUM COACH Ot 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 03/27/2017 GALA TALLEY APRN Ot E11.9 TYPE 2 DIABETES MELLITUS WITHOUT COMPLIC 03/27/2017 GALA TALLEY AGILE SCRUM COACH Ot I10 ESSENTIAL (PRIMARY) HYPERTENSION 03/27/2017 GALA TALLEY APRN Ot J44.9 CHRONIC OBSTRUCTIVE PULMONARY DISEASE, U 03/27/2017 GALA TALLEY APRN Ot R07.9 CHEST PAIN, UNSPECIFIED 03/27/2017 GALA TALLEY APRN Ot Z79.4 USP (CURRENT) USE OF INSULIN 03/27/2017 GALA TALLEY APRN Ot Z79.82 USP (CURRENT) USE OF ASPIRIN 03/27/2017 GALA TALLEY APRN Ot 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 03/28/2017 TYLER CHUNG MD [...] HYPERHIDROSIS 03/28/2017 TYLER CHUNG MD Ot Z79.82 USP (CURRENT) USE OF ASPIRIN 03/28/2017 TYLER CHUNG MD Ot Z79.899 OTHER USP (CURRENT) DRUG THERAPY 03/30/2017 RONEN QUINONEZ DOA K Ot E11.9 TYPE 2 DIABETES MELLITUS WITHOUT COMPLIC 03/30/2017 DEVI FOREMAN JOSSELIN K Ot F17.210 NICOTINE DEPENDENCE, CIGARETTES, UNCOMPL 03/30/2017 DEVI FOREMAN JOSSELIN K Ot F41.9 ANXIETY DISORDER, UNSPECIFIED 03/30/2017 DEVI FOREMAN JOSSELIN K Ot I10 ESSENTIAL (PRIMARY) HYPERTENSION 03/30/2017 DEVI DO, JOSSELIN K Ot J44.9 CHRONIC OBSTRUCTIVE PULMONARY DISEASE, U 03/30/2017 DEVI DO, JOSSELIN K Ot R06.02 SHORTNESS OF BREATH 03/30/2017 DEVI DO, JOSSELIN K Ot R06.4 HYPERVENTILATION 03/30/2017 DEVI DO, JOSSELIN K Ot R19.7 DIARRHEA, UNSPECIFIED 03/30/2017 DEVI DO, JOSSELIN K Ot Z79.4 USP (CURRENT) USE OF INSULIN 03/30/2017 DEVI DO, JOSSELIN K Ot Z79.82 USP (CURRENT) USE OF ASPIRIN 04/02/2017 GALA TALLEY [...] UNSPECIFIED 04/02/2017 GALA TALLEY APRN Ot Z79.4 USP (CURRENT) USE OF INSULIN 04/02/2017 GALA TALLEY APRN Ot Z79.82 CRANE ENGINEER (CURRENT) USE OF ASPIRIN 04/02/2017 GALA TALLEY APRN Ot 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 04/02/2017 DEVI DO, JOSSELIN [...] 04/02/2017 DEVI DO, JOSSELIN K Ot Z79.4 USP (CURRENT) USE OF INSULIN 04/02/2017 DEVI FOREMAN JOSSELIN K Ot Z79.82 CRANE ENGINEER (CURRENT) USE OF ASPIRIN 04/03/2017 TYLER CHUNG [...] HYPERHIDROSIS 04/03/2017 TYLER CHUNG MD Ot Z79.82 USP (CURRENT) USE OF ASPIRIN 04/03/2017 TYLER CHUNG MD Ot 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 04/19/2017 GLORIA WALDEN APRN [...] HYPERHIDROSIS 06/27/2017 TYLER CHUNG MD Ot Z79.82 USP (CURRENT) USE OF ASPIRIN 06/27/2017 TYLER CHUNG MD Ot Z79.899 OTHER USP (CURRENT) DRUG THERAPY 07/01/2017 TYLER CHUNG MD [...] HYPERHIDROSIS 07/01/2017 TYLER CHUNG MD Ot Z79.82 USP (CURRENT) USE OF ASPIRIN 07/01/2017 TYLER CHUNG MD Ot Z79.899 OTHER USP (CURRENT) DRUG THERAPY 01/24/2018 PRESTON HOLLEY MD Ot R56.9 UNSPECIFIED CONVULSIONS 01/24/2018 PRESTON HOLLEY MD Ot R56.9 UNSPECIFIED CONVULSIONS 01/24/2018 PRESTON HOLLEY MD Ot Z79.899 OTHER USP (CURRENT) DRUG THERAPY 01/24/2018 PRESTON HOLLEY MD Ot R56.9 UNSPECIFIED CONVULSIONS 01/24/2018 KAMILLE CHAVZE DO Ot E66.9 OBESITY, UNSPECIFIED 01/24/2018 KAMILLE [...] DIARRHEA, UNSPECIFIED 01/24/2018 JACKY CORONEL Ot Z79.4 USP (CURRENT) USE OF INSULIN 01/24/2018 JACKY CORONEL Ot Z79.82 USP (CURRENT) USE OF ASPIRIN 01/24/2018 JACKY CORONEL [...] 01/24/2018 PRESTON HOLLEY MD Ot 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 01/24/2018 PRESTON HOLLEY MD [...] DIARRHEA, UNSPECIFIED 01/26/2018 JACKY CORONEL Ot Z79.4 CRANE ENGINEER (CURRENT) USE OF INSULIN 01/26/2018 JACKY CORONEL Ot Z79.82 CRANE ENGINEER (CURRENT) USE OF ASPIRIN 01/26/2018 JACKY CORONEL [...] OBSTRUCTION 02/02/2018 MALLY BRITO DO Ot Z79.4 USP (CURRENT) USE OF INSULIN 02/02/2018 MALLY BRITO DO Ot Z79.82 USP (CURRENT) USE OF ASPIRIN 02/02/2018 MALLY BRITO DO Ot 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 02/02/2018 MALLY BRITO DO [...] OBSTRUCTION 02/04/2018 MALLY BRITO DO Ot Z79.4 CRANE ENGINEER (CURRENT) USE OF INSULIN 02/04/2018 MALLY BRITO DO Ot Z79.82 USP (CURRENT) USE OF ASPIRIN 02/04/2018 MALLY BRITO DO Ot Z79.899 OTHER USP (CURRENT) DRUG THERAPY 02/04/2018 MALLY BRITO DO Ot Z80.0 FAMILY HISTORY OF MALIGNANT NEOPLASM OF 02/04/2018 MALLY BRITO DO Ot Z88.0 ALLERGY STATUS TO PENICILLIN 02/04/2018 MALLY BRITO DO Ot Z88.5 ALLERGY STATUS TO NARCOTIC AGENT STATUS 02/10/2018 PRESTON HOLLEY MD Ot R56.9 UNSPECIFIED CONVULSIONS 02/10/2018 PRESTON HOLLEY MD Ot R56.9 UNSPECIFIED CONVULSIONS 02/10/2018 PRESTON HOLLEY MD Ot 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 02/10/2018 PRESTON HOLLEY MD [...] 02/10/2018 PRESTON HOLLEY MD Ot 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 02/10/2018 PRESTON HOLLEY MD Ot R56.9 UNSPECIFIED CONVULSIONS 02/10/2018 KAMILLE CHAVEZ DO M Ot E66.9 OBESITY, UNSPECIFIED 02/10/2018 KAMILLE CHAVEZ DO Ot J44.9 CHRONIC OBSTRUCTIVE PULMONARY DISEASE, U 02/10/2018 KAMILLE CHAVEZ DO M Ot Z72.0 TOBACCO USE 02/10/2018 KAMILLE CHAVEZ DO M Ot E66.9 OBESITY, UNSPECIFIED 02/10/2018 KAMILLE CHAVEZ DO Ot J43.9 EMPHYSEMA, UNSPECIFIED 02/10/2018 SCOTTSIN CROW DOSON M Ot Z72.0 TOBACCO USE 02/10/2018 PRESTON HOLLEY MD Ot R56.9 UNSPECIFIED CONVULSIONS 02/10/2018 GLORIA WALDEN APRN Ot J98.4 OTHER DISORDERS OF LUNG 02/10/2018 GLORIA WALDEN APRN Ot R56.9 UNSPECIFIED CONVULSIONS 02/24/2018 KARTHIK WARD MEDICAL CARE EVALUATION SPECIALIST Ot E78.5 HYPERLIPIDEMIA, UNSPECIFIED 02/24/2018 KARTHIK WARD MEDICAL CARE EVALUATION SPECIALIST Ot I10 ESSENTIAL (PRIMARY) HYPERTENSION 02/24/2018 KARTHIK WARD MEDICAL CARE EVALUATION SPECIALIST Ot R06.09 OTHER FORMS OF DYSPNEA 02/24/2018 KARTHIK WARD MEDICAL CARE EVALUATION SPECIALIST Ot R07.9 CHEST PAIN, UNSPECIFIED 02/26/2018 MALLY [...] 03/15/2018 PRESTON HOLLEY MD Ot 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 03/15/2018 PRESTON HOLLEY MD Ot R56.9 UNSPECIFIED CONVULSIONS 03/15/2018 KAMILLE CHAVEZ DO Ot E66.9 OBESITY, UNSPECIFIED 03/15/2018 KAMILLE CHAVEZ DO Ot J44.9 CHRONIC OBSTRUCTIVE PULMONARY DISEASE, U 03/15/2018 KAMILLE CHAVEZ DO M Ot Z72.0 TOBACCO USE 03/15/2018 KAMILLE CHAVEZ DO Ot E66.9 OBESITY, UNSPECIFIED 03/15/2018 KAMILLE CHAVEZ DO Ot J43.9 EMPHYSEMA, UNSPECIFIED 03/15/2018 SCOTTKAMILLE CROW DO M Ot Z72.0 TOBACCO USE 03/15/2018 PRESTON HOLLEY MD Ot R56.9 UNSPECIFIED CONVULSIONS 03/15/2018 GLORIA WALDEN AGILE SCRUM COACH Ot J98.4 OTHER DISORDERS OF LUNG 03/15/2018 GLORIA WALDEN AGILE SCRUM COACH Ot R56.9 UNSPECIFIED CONVULSIONS 03/15/2018 KARTHIK WARD MEDICAL CARE EVALUATION SPECIALIST Ot E78.5 HYPERLIPIDEMIA, UNSPECIFIED 03/15/2018 KARTHIK WARD MEDICAL CARE EVALUATION SPECIALIST Ot I10 ESSENTIAL (PRIMARY) HYPERTENSION 03/15/2018 KARTHIK WARD MEDICAL CARE EVALUATION SPECIALIST Ot R06.09 OTHER FORMS OF DYSPNEA 03/15/2018 KARTHIK WARD MEDICAL CARE EVALUATION SPECIALIST Ot R07.9 CHEST PAIN, UNSPECIFIED 03/15/2018 BRITO DOMALLY D Ot R19.7 DIARRHEA, UNSPECIFIED 03/15/2018 GLORIA WALDEN AGILE SCRUM COACH Ot J45.909 UNSPECIFIED ASTHMA, UNCOMPLICATED 03/15/2018 GLORIA WALDEN AGILE SCRUM COACH Ot Z72.0 TOBACCO USE 03/16/2018 KARTHIK WARD MEDICAL CARE EVALUATION SPECIALIST Ot E78.5 HYPERLIPIDEMIA, UNSPECIFIED 03/16/2018 BAIKARTHIK REYNOSO MEDICAL CARE EVALUATION SPECIALIST Ot I10 ESSENTIAL (PRIMARY) HYPERTENSION 03/16/2018 KARTHIK WARD MEDICAL CARE EVALUATION SPECIALIST Ot R06.09 OTHER FORMS OF DYSPNEA 03/16/2018 KARTHIK WARD MEDICAL CARE EVALUATION SPECIALIST Ot R07.9 CHEST PAIN, UNSPECIFIED 03/17/2018 DEVI DO JOSSELIN K Ot E03.9 HYPOTHYROIDISM, UNSPECIFIED 03/17/2018 [...] K Ot R73.9 HYPERGLYCEMIA, UNSPECIFIED 03/17/2018 DEVI DO JOSSELIN K Ot Z79.4 CRANE ENGINEER (CURRENT) USE OF INSULIN 03/17/2018 DEVI FOREMAN JOSSELIN K Ot Z79.51 CRANE ENGINEER (CURRENT) USE OF INHALED STERO 03/17/2018 DEVI DO JOSSELIN K Ot Z79.82 USP (CURRENT) USE OF ASPIRIN 03/17/2018 DEVI DO JOSSELIN K Ot Z82.49 FAMILY HX OF ISCHEM HEART DIS AND OTH DI 03/17/2018 DEVI DO JOSSELIN K Ot Z87.19 PERSONAL HISTORY OF OTHER DISEASES OF TH 03/17/2018 DEVI FOREMAN JOSSELIN K Ot Z88.0 ALLERGY STATUS TO PENICILLIN 03/17/2018 DEVI DO JOSSELIN K Ot Z90.49 ACQUIRED ABSENCE OF OTHER SPECIFIED PART 03/17/2018 DEVI DO JOSSELIN K Ot Z90.710 ACQUIRED ABSENCE OF BOTH CERVIX AND UTER 03/17/2018 DEVI , JOSSELIN K Ot Z90.89 ACQUIRED ABSENCE OF OTHER ORGANS 03/17/2018 DEVI JOSSELIN K Ot Z91.041 RADIOGRAPHIC DYE ALLERGY STATUS 03/20/2018 GLORIA WALDEN APRN Ot J45.909 UNSPECIFIED ASTHMA, UNCOMPLICATED 03/22/2018 DEVI FOREMAN JOSSELIN K Ot E03.9 HYPOTHYROIDISM, UNSPECIFIED 03/22/2018 DEVI JOSSELIN K Ot E11.65 TYPE 2 DIABETES MELLITUS WITH HYPERGLYCE 03/22/2018 DEVI JOSSELIN K Ot E78.00 PURE HYPERCHOLESTEROLEMIA, UNSPECIFIED 03/22/2018 DEVI DO, JOSSELIN K Ot F17.210 NICOTINE DEPENDENCE, CIGARETTES, UNCOMPL 03/22/2018 DEVI JOSSELIN K Ot F31.9 BIPOLAR DISORDER, UNSPECIFIED 03/22/2018 DEVI , JOSSELIN K Ot F41.9 ANXIETY DISORDER, UNSPECIFIED 03/22/2018 DEVI JOSSELIN K Ot I10 ESSENTIAL (PRIMARY) HYPERTENSION 03/22/2018 DEVI JOSSELIN K Ot J43.9 EMPHYSEMA, UNSPECIFIED 03/22/2018 DEVI JOSSELIN K Ot K21.9 GASTRO-ESOPHAGEAL REFLUX DISEASE WITHOUT 03/22/2018 DEVI FOREMAN JOSSELIN K Ot R73.9 HYPERGLYCEMIA, UNSPECIFIED 03/22/2018 DEVI JOSSELIN K Ot Z79.4 USP (CURRENT) USE OF INSULIN 03/22/2018 DEVI JOSSELIN K Ot Z79.51 CRANE ENGINEER (CURRENT) USE OF INHALED STERO 03/22/2018 DEVI JOSSELIN K Ot Z79.82 CRANE ENGINEER (CURRENT) USE OF ASPIRIN 03/22/2018 DEVI JOSSELIN K Ot Z82.49 FAMILY HX OF ISCHEM HEART DIS AND OTH DI 03/22/2018 DEVI FOREMAN JOSSELIN K Ot Z87.19 PERSONAL HISTORY OF OTHER DISEASES OF TH 03/22/2018 DEVI FOREMAN JOSSELIN K Ot Z88.0 ALLERGY STATUS TO PENICILLIN 03/22/2018 DEVI FOREMAN JOSSELIN K Ot Z90.49 ACQUIRED ABSENCE OF OTHER SPECIFIED PART 03/22/2018 DEVI FOREMAN JOSSELIN K Ot Z90.710 ACQUIRED ABSENCE OF BOTH CERVIX AND UTER 03/22/2018 DEVI JOSSELIN K Ot Z90.89 ACQUIRED ABSENCE [...] WALDEN APRN Ot Z72.0 TOBACCO USE 03/31/2018 BUSHRA WHITEHEAD MD Ot E03.9 HYPOTHYROIDISM, UNSPECIFIED 03/31/2018 BUSHRA WHITEHEAD MD Ot E11.9 TYPE 2 DIABETES MELLITUS WITHOUT COMPLIC 03/31/2018 BUSHRA WHITEHEAD MD Ot E78.00 PURE HYPERCHOLESTEROLEMIA, UNSPECIFIED 03/31/2018 BUSHRA WHITEHEAD MD Ot F17.210 NICOTINE DEPENDENCE, CIGARETTES, UNCOMPL 03/31/2018 BUSHRA WHITEHEAD MD Ot F31.9 BIPOLAR DISORDER, UNSPECIFIED 03/31/2018 BUSHRA WHITEHEAD MD, Ot F41.9 ANXIETY DISORDER, UNSPECIFIED 03/31/2018 BUSHRA [...] UNSPECIFIED 03/31/2018 BUSHRA WHITEHEAD MD Ot Z79.4 USP (CURRENT) USE OF INSULIN 03/31/2018 BUSHRA WHITEHEAD MD, Ot Z79.51 CRANE ENGINEER (CURRENT) USE OF INHALED STERO 03/31/2018 BUSHRA WHITEHEAD MD, Ot Z79.52 CRANE ENGINEER (CURRENT) USE OF SYSTEMIC STER 03/31/2018 BUSHRA WHITEHEAD MD, Ot Z79.82 USP (CURRENT) USE OF ASPIRIN 03/31/2018 BUSHRA WHITEHEAD [...] GASTRO-ESOPHAGEAL REFLUX DISEASE WITHOUT 04/02/2018 BUSHRA WHITEHEAD MD Ot R06.02 SHORTNESS OF BREATH 04/02/2018 BUSHRA WHITEHEAD MD, Ot R11.2 NAUSEA WITH VOMITING, UNSPECIFIED 04/02/2018 BUSHRA WHITEHEAD MD, Ot Z79.4 CRANE ENGINEER (CURRENT) USE OF INSULIN 04/02/2018 BUSHRA WHITEHEAD MD Ot Z79.51 CRANE ENGINEER (CURRENT) USE OF INHALED STERO 04/02/2018 BUHSRA WHITEHEAD MD, Ot Z79.52 USP (CURRENT) USE OF SYSTEMIC STER 04/02/2018 BUSHRA WHITEHEAD MD, Ot Z79.82 CRANE ENGINEER (CURRENT) USE OF ASPIRIN 04/02/2018 BUSHRA WHITEHEAD MD, Ot Z82.49 FAMILY HX OF ISCHEM HEART DIS AND OTH DI 04/02/2018 BUSHRA WHITEHEAD MD, Ot Z87.19 PERSONAL HISTORY OF OTHER DISEASES OF 04/02/2018 BUSHRA WHITEHEAD MD, Ot Z88.0 ALLERGY STATUS TO PENICILLIN 04/02/2018 BUSHRA WHITEHEAD MD Ot Z90.49 ACQUIRED ABSENCE OF OTHER SPECIFIED PART 04/02/2018 BUSHRA WHITEHEAD MD Ot Z90.710 ACQUIRED ABSENCE OF BOTH CERVIX AND UTER 04/02/2018 BUSHRA WHITEHEAD MD Ot Z90.89 ACQUIRED ABSENCE OF OTHER ORGANS 04/02/2018 BUSHRA WHITEHEAD MD, Ot Z91.041 RADIOGRAPHIC DYE ALLERGY STATUS 04/20/2018 GLORIA WALDEN APRN Ot R91.8 OTHER NONSPECIFIC ABNORMAL FINDING OF GUSTAVO 04/20/2018 GLORIA WALDEN APRN Ot Z72.0 TOBACCO USE 06/21/2018 PRESTON HOLLEY MD Ot R56.9 UNSPECIFIED CONVULSIONS 06/21/2018 PRETSON HOLLEY MD Ot R56.9 UNSPECIFIED CONVULSIONS 06/21/2018 PRESTON HOLLEY MD Ot 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 06/21/2018 PRESTON HOLLEY MD Ot R56.9 UNSPECIFIED CONVULSIONS 06/21/2018 KAMILLE CHAVEZ DO Ot E66.9 OBESITY, UNSPECIFIED 06/21/2018 SCOTT DOKAMILLE Ot J44.9 CHRONIC OBSTRUCTIVE PULMONARY DISEASE, U 06/21/2018 SCOTT DO KAMILLE M Ot Z72.0 TOBACCO USE 06/21/2018 KAMILLE CHAVEZ DO Ot E66.9 OBESITY, UNSPECIFIED 06/21/2018 KAMILLE CHAVEZ DO Ot J43.9 EMPHYSEMA, UNSPECIFIED 06/21/2018 SCOTT FOREMAN KAMILLE M Ot Z72.0 TOBACCO USE 06/21/2018 PRESTON HOLLEY MD Ot R56.9 UNSPECIFIED CONVULSIONS 06/21/2018 GLORIA WALDEN AGILE SCRUM COACH Ot J98.4 OTHER DISORDERS OF LUNG 06/21/2018 GLORIA WALDEN AGILE SCRUM COACH Ot R56.9 UNSPECIFIED CONVULSIONS 06/21/2018 KARTHIK WARD MEDICAL CARE EVALUATION SPECIALIST Ot E78.5 HYPERLIPIDEMIA, UNSPECIFIED 06/21/2018 KARTHIK WARD L MEDICAL CARE EVALUATION SPECIALIST Ot I10 ESSENTIAL (PRIMARY) HYPERTENSION 06/21/2018 KARTHIK WARD L MEDICAL CARE EVALUATION SPECIALIST Ot R06.09 OTHER FORMS OF DYSPNEA 06/21/2018 JOLYNN WARDHER L MEDICAL CARE EVALUATION SPECIALIST Ot R07.9 CHEST PAIN, UNSPECIFIED 06/21/2018 MALLY BRITO DO Ot R19.7 DIARRHEA, UNSPECIFIED 06/21/2018 GLORIA WALDEN AGILE SCRUM COACH Ot J45.909 UNSPECIFIED ASTHMA, UNCOMPLICATED 06/21/2018 GLORIA WALDEN AGILE SCRUM COACH Ot Z72.0 TOBACCO USE 06/21/2018 GLORIA WALDEN AGILE SCRUM COACH Ot R91.8 OTHER NONSPECIFIC ABNORMAL FINDING OF GUSTAVO 06/21/2018 GLORIA WALDEN AGILE SCRUM COACH Ot Z72.0 TOBACCO USE 06/22/2018 GLORIA WALDEN AGILE SCRUM COACH Ot R91.8 OTHER NONSPECIFIC ABNORMAL FINDING OF GUSTAVO 07/02/2018 GLORIA WALDEN AGILE SCRUM COACH Ot R91.8 OTHER NONSPECIFIC ABNORMAL FINDING OF GUSTAVO 07/05/2018 KAMILLE CHAVEZ DO Ot Z01.818 ENCOUNTER FOR OTHER PREPROCEDURAL EXAMIN 07/20/2018 PRESTON HOLLEY MD Ot R56.9 UNSPECIFIED CONVULSIONS 07/20/2018 PRESTON HOLLEY MD Ot R56.9 UNSPECIFIED CONVULSIONS 07/20/2018 PRESTON HOLLEY MD Ot Z79.899 OTHER USP (CURRENT) DRUG THERAPY 07/20/2018 PRESTON HOLLEY MD Ot R56.9 UNSPECIFIED CONVULSIONS 07/20/2018 KAMILLE CHAVEZ DO Ot E66.9 OBESITY, UNSPECIFIED 07/20/2018 KAMILLE CHAVEZ DO M Ot J44.9 CHRONIC OBSTRUCTIVE PULMONARY DISEASE, U 07/20/2018 KAMILLE CHAVEZ DO M Ot Z72.0 TOBACCO USE 07/20/2018 KAMILLE CHAVEZ DO Ot E66.9 OBESITY, UNSPECIFIED 07/20/2018 KAMILLE CHAVEZ DO M Ot J43.9 EMPHYSEMA, UNSPECIFIED 07/20/2018 KAMILLE CHAVEZ DO Ot Z72.0 TOBACCO USE 07/20/2018 PRESTON HOLLEY MD Ot R56.9 UNSPECIFIED CONVULSIONS 07/20/2018 GLORIA WALDEN AGILE SCRUM COACH Ot J98.4 OTHER DISORDERS OF LUNG 07/20/2018 GLORIA WALDEN AGILE SCRUM COACH Ot R56.9 UNSPECIFIED CONVULSIONS 07/20/2018 KARTHIK WARD MEDICAL CARE EVALUATION SPECIALIST Ot E78.5 HYPERLIPIDEMIA, UNSPECIFIED 07/20/2018 CESARIOMA KARTHIK L MEDICAL CARE EVALUATION SPECIALIST Ot I10 ESSENTIAL (PRIMARY) HYPERTENSION 07/20/2018 KARTHIK WARD L MEDICAL CARE EVALUATION SPECIALIST Ot R06.09 OTHER FORMS OF DYSPNEA 07/20/2018 CESARIOMAKARTHIK MEDICAL CARE EVALUATION SPECIALIST Ot R07.9 CHEST PAIN, UNSPECIFIED 07/20/2018 MALLY BRITO DO Ot R19.7 DIARRHEA, UNSPECIFIED 07/20/2018 GLORIA WALDEN AGILE SCRUM COACH Ot J45.909 UNSPECIFIED ASTHMA, UNCOMPLICATED 07/20/2018 GLORIA WALDEN AGILE SCRUM COACH Ot Z72.0 TOBACCO USE 07/20/2018 GLORIA WALDEN AGILE SCRUM COACH Ot R91.8 OTHER NONSPECIFIC ABNORMAL FINDING OF GUSTAVO 07/20/2018 GLORIA WALDEN AGILE SCRUM COACH Ot Z72.0 TOBACCO USE 07/20/2018 GLORIA WALDEN AGILE SCRUM COACH Ot R91.8 OTHER NONSPECIFIC ABNORMAL FINDING OF GUSTAVO 07/20/2018 KAMILLE CHAVEZ DO Ot Z01.818 ENCOUNTER FOR OTHER PREPROCEDURAL EXAMIN 01/12/2019 PRESTON HOLLEY MD Ot R56.9 UNSPECIFIED CONVULSIONS 01/12/2019 PRESTON HOLLEY MD Ot R56.9 UNSPECIFIED CONVULSIONS 01/12/2019 PRESTON HOLLEY MD Ot 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 01/12/2019 PRESTON HOLLEY MD Ot R56.9 UNSPECIFIED CONVULSIONS 01/12/2019 KAMILLE CHAVEZ DO Ot E66.9 OBESITY, UNSPECIFIED 01/12/2019 KAMILLE CHAVEZ DO M Ot J44.9 CHRONIC OBSTRUCTIVE PULMONARY DISEASE, U 01/12/2019 KAMILLE CHAVEZ DO M Ot Z72.0 TOBACCO USE 01/12/2019 KAMILLE CHAVEZ DO M Ot E66.9 OBESITY, UNSPECIFIED 01/12/2019 KAMILLE CHAVEZ DO Ot J43.9 EMPHYSEMA, UNSPECIFIED 01/12/2019 KAMILLE CHAVEZ DO M Ot Z72.0 TOBACCO USE 01/12/2019 PRESTON HOLLEY MD Ot R56.9 UNSPECIFIED CONVULSIONS 01/12/2019 GLORIA WALDEN AGILE SCRUM COACH Ot J98.4 OTHER DISORDERS OF LUNG 01/12/2019 GLORIA WALDEN AGILE SCRUM COACH Ot R56.9 UNSPECIFIED CONVULSIONS 01/12/2019 KARTHIK WARD MEDICAL CARE EVALUATION SPECIALIST Ot E78.5 HYPERLIPIDEMIA, UNSPECIFIED 01/12/2019 KARTHIK WARD MEDICAL CARE EVALUATION SPECIALIST Ot I10 ESSENTIAL (PRIMARY) HYPERTENSION 01/12/2019 KARTHIK WARD MEDICAL CARE EVALUATION SPECIALIST Ot R06.09 OTHER FORMS OF DYSPNEA 01/12/2019 KARTHIK WARD MEDICAL CARE EVALUATION SPECIALIST Ot R07.9 CHEST PAIN, UNSPECIFIED 01/12/2019 MALLY BRITO DO Ot R19.7 DIARRHEA, UNSPECIFIED 01/12/2019 GLORIA WALDEN AGILE SCRUM COACH Ot J45.909 UNSPECIFIED ASTHMA, UNCOMPLICATED 01/12/2019 GOLRIA WALDEN AGILE SCRUM COACH Ot Z72.0 TOBACCO USE 01/12/2019 GLORIA WALDEN AGILE SCRUM COACH Ot R91.8 OTHER NONSPECIFIC ABNORMAL FINDING OF GUSTAVO 01/12/2019 GLORIA WALDEN AGILE SCRUM COACH Ot Z72.0 TOBACCO USE 01/12/2019 GLORIA WALDEN AGILE SCRUM COACH Ot R91.8 OTHER NONSPECIFIC ABNORMAL FINDING OF GUSTAVO 01/12/2019 KAMILLE CHAVEZ DO Ot Z01.818 ENCOUNTER FOR OTHER PREPROCEDURAL EXAMIN 01/14/2019 PRESTON HOLLEY MD Ot R56.9 UNSPECIFIED CONVULSIONS 01/14/2019 PRESTON HOLLEY MD Ot R56.9 UNSPECIFIED CONVULSIONS 01/14/2019 PRESTON HOLLEY MD Ot Z79.899 OTHER USP (CURRENT) DRUG THERAPY 01/14/2019 PRESTON HOLLEY MD Ot R56.9 UNSPECIFIED CONVULSIONS 01/14/2019 KAMILLE CHAVEZ DO Ot E66.9 OBESITY, UNSPECIFIED 01/14/2019 KAMILLE CHAVEZ DO Ot J44.9 CHRONIC OBSTRUCTIVE PULMONARY DISEASE, U 01/14/2019 KAMILLE CHAVEZ DO Ot Z72.0 TOBACCO USE 01/14/2019 KAMILLE CHAVEZ DO Ot E66.9 OBESITY, UNSPECIFIED 01/14/2019 KAMILLE CHAVEZ DO Ot J43.9 EMPHYSEMA, UNSPECIFIED 01/14/2019 KAMILLE CHAVEZ DO Ot Z72.0 TOBACCO USE 01/14/2019 PRESTON HOLLEY MD Ot R56.9 UNSPECIFIED CONVULSIONS 01/14/2019 GLORIA WALDEN APRN Ot J98.4 OTHER DISORDERS OF LUNG 01/14/2019 GLORIA WALDEN APRN Ot R56.9 UNSPECIFIED CONVULSIONS 01/14/2019 KARTHIK WARD MEDICAL CARE EVALUATION SPECIALIST Ot E78.5 HYPERLIPIDEMIA, UNSPECIFIED 01/14/2019 KARTHIK WARD MEDICAL CARE EVALUATION SPECIALIST Ot I10 ESSENTIAL (PRIMARY) HYPERTENSION 01/14/2019 KARTHIK WARD MEDICAL CARE EVALUATION SPECIALIST Ot R06.09 OTHER FORMS OF DYSPNEA 01/14/2019 KARTHIK WARD MEDICAL CARE EVALUATION SPECIALIST Ot R07.9 CHEST PAIN, UNSPECIFIED 01/14/2019 MALLY BRITO DO Ot R19.7 DIARRHEA, UNSPECIFIED 01/14/2019 GLORIA WALDEN APRN Ot J45.909 UNSPECIFIED ASTHMA, UNCOMPLICATED 01/14/2019 GLORIA WALDEN APRN Ot Z72.0 TOBACCO USE 01/14/2019 GLORIA WALDEN APRN Ot R91.8 OTHER NONSPECIFIC ABNORMAL FINDING OF GUSTAVO 01/14/2019 IRAM, GLORIA E AGILE SCRUM COACH Ot Z72.0 TOBACCO USE 01/14/2019 IRAM GLORIA E AGILE SCRUM COACH Ot R91.8 OTHER NONSPECIFIC ABNORMAL FINDING OF GUSTAVO 01/14/2019 KAMILLE CHAVEZ DO Ot Z01.818 ENCOUNTER FOR OTHER PREPROCEDURAL EXAMIN 01/16/2019 RANI WALDENINE E AGILE SCRUM COACH Ot C34.90 MALIGNANT NEOPLASM OF UNSP PART OF UNSP 01/16/2019 GLORIA WALDEN AGILE SCRUM COACH Ot G47.10 HYPERSOMNIA, UNSPECIFIED 01/16/2019 RANI WALDENINE E AGILE SCRUM COACH Ot J45.909 UNSPECIFIED ASTHMA, UNCOMPLICATED 01/16/2019 IRAMRANI LIZARRAGAINE E AGILE SCRUM COACH Ot J98.4 OTHER DISORDERS OF LUNG 01/16/2019 RANI WALDENINE Stephanie AGILE SCRUM COACH Ot Z72.0 TOBACCO USE 01/18/2019 RANI WALDENINE Stephanie AGILE SCRUM COACH Ot G47.10 HYPERSOMNIA, UNSPECIFIED 01/18/2019 RANI WALDENINE E AGILE SCRUM COACH Ot J45.909 UNSPECIFIED ASTHMA, UNCOMPLICATED 01/18/2019 RANI WALDENINE E AGILE SCRUM COACH Ot J98.4 OTHER DISORDERS OF LUNG 01/18/2019 RANI WALDENINE E AGILE SCRUM COACH Ot R06.00 DYSPNEA, UNSPECIFIED 01/18/2019 GLORIA WALDEN AGILE SCRUM COACH Ot Z72.0 TOBACCO USE 01/19/2019 RANI WALDENINE E AGILE SCRUM COACH Ot J98.4 OTHER DISORDERS OF LUNG 01/19/2019 GLORIA WALDEN E AGILE SCRUM COACH Ot R56.9 UNSPECIFIED CONVULSIONS 01/19/2019 KAMILLE CHAVEZ DO Ot Z01.818 ENCOUNTER FOR OTHER PREPROCEDURAL EXAMIN 01/20/2019 KAMILLE CHAVEZ DO Ot Z01.818 ENCOUNTER FOR OTHER PREPROCEDURAL EXAMIN 01/25/2019 PRESTON HOLLEY MD Ot R56.9 UNSPECIFIED CONVULSIONS 01/25/2019 PRESTON HOLLEY MD Ot R56.9 UNSPECIFIED CONVULSIONS 01/25/2019 PRESTON HOLLEY MD Ot 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 01/25/2019 PRESTON HOLLEY MD Ot R56.9 UNSPECIFIED CONVULSIONS 01/25/2019 KAMILLE CHAVEZ DO Ot E66.9 OBESITY, UNSPECIFIED 01/25/2019 KAMILLE CHAVEZ DO Ot J44.9 CHRONIC OBSTRUCTIVE PULMONARY DISEASE, U 01/25/2019 KAMILLE CHAVEZ DO Ot Z72.0 TOBACCO USE 01/25/2019 KAMILLE CHAVEZ DO Ot E66.9 OBESITY, UNSPECIFIED 01/25/2019 KAMILLE CHAVEZ DO Ot J43.9 EMPHYSEMA, UNSPECIFIED 01/25/2019 KAMILLE CHAVEZ DO Ot Z72.0 TOBACCO USE 01/25/2019 PRESTON HOLLEY MD Ot R56.9 UNSPECIFIED CONVULSIONS 01/25/2019 GLORIA WALDEN AGILE SCRUM COACH Ot J98.4 OTHER DISORDERS OF LUNG 01/25/2019 GLORIA WALDEN AGILE SCRUM COACH Ot R56.9 UNSPECIFIED CONVULSIONS 01/25/2019 KARTHIK WARD MEDICAL CARE EVALUATION SPECIALIST Ot E78.5 HYPERLIPIDEMIA, UNSPECIFIED 01/25/2019 KARTHIK WARD MEDICAL CARE EVALUATION SPECIALIST Ot I10 ESSENTIAL (PRIMARY) HYPERTENSION 01/25/2019 KARTHIK WARD MEDICAL CARE EVALUATION SPECIALIST Ot R06.09 OTHER FORMS OF DYSPNEA 01/25/2019 KARTHIK WARD MEDICAL CARE EVALUATION SPECIALIST Ot R07.9 CHEST PAIN, UNSPECIFIED 01/25/2019 MALLY BRITO DO Ot R19.7 DIARRHEA, UNSPECIFIED 01/25/2019 GLORIA WALDEN AGILE SCRUM COACH Ot J45.909 UNSPECIFIED ASTHMA, UNCOMPLICATED 01/25/2019 GLORIA WALDEN AGILE SCRUM COACH Ot Z72.0 TOBACCO USE 01/25/2019 GLORIA WALDEN AGILE SCRUM COACH Ot R91.8 OTHER NONSPECIFIC ABNORMAL FINDING OF GUSTAVO 01/25/2019 GLORIA WALDEN AGILE SCRUM COACH Ot Z72.0 TOBACCO USE 01/25/2019 GLORIA WALDEN AGILE SCRUM COACH Ot R91.8 OTHER NONSPECIFIC ABNORMAL FINDING OF GUSTAVO 01/25/2019 KAMILLE CHAVEZ DO Ot Z01.818 ENCOUNTER FOR OTHER PREPROCEDURAL EXAMIN 01/25/2019 GLORIA WALDEN AGILE SCRUM COACH Ot G47.10 HYPERSOMNIA, UNSPECIFIED 01/25/2019 GLORIA WALDEN AGILE SCRUM COACH Ot J45.909 UNSPECIFIED ASTHMA, UNCOMPLICATED 01/25/2019 GLORIA WALDEN AGILE SCRUM COACH Ot J98.4 OTHER DISORDERS OF LUNG 01/25/2019 GLORIA WALDEN AGILE SCRUM COACH Ot R06.00 DYSPNEA, UNSPECIFIED 01/25/2019 GLORIA WALDEN APRN Ot Z72.0 TOBACCO USE 01/25/2019 GLORIA WALDEN APRN Ot C34.90 MALIGNANT NEOPLASM OF UNSP PART OF UNSP 01/25/2019 GLORIA WALDEN APRN Ot G47.10 HYPERSOMNIA, UNSPECIFIED 01/25/2019 GLORIA WALDEN APRN Ot J45.909 UNSPECIFIED ASTHMA, UNCOMPLICATED 01/25/2019 GLORIA WALDEN APRN Ot J98.4 OTHER DISORDERS OF LUNG 01/25/2019 GLORIA WALDEN APRN Ot Z72.0 TOBACCO USE 01/26/2019 KAMILLE CHAVEZ DO Ot F17.210 NICOTINE DEPENDENCE, CIGARETTES, UNCOMPL 01/26/2019 KAMILLE CHAVEZ DO, Ot F31.9 BIPOLAR DISORDER, UNSPECIFIED 01/26/2019 KAMILLE CHAVEZ DO Ot F41.9 ANXIETY DISORDER, UNSPECIFIED 01/26/2019 KAMILLE CHAVEZ DO, Ot G47.10 HYPERSOMNIA, UNSPECIFIED 01/26/2019 KAMILLE CHAVEZ DO Ot J45.909 UNSPECIFIED ASTHMA, UNCOMPLICATED 01/26/2019 KAMILLE CHAVEZ DO Ot J98.4 OTHER DISORDERS OF LUNG 01/26/2019 KAMILLE CHAVEZ DO Ot R06.00 DYSPNEA, UNSPECIFIED 01/26/2019 KAMILLE CHAVEZ DO Ot R91.8 OTHER NONSPECIFIC ABNORMAL FINDING OF GUSTAVO 01/26/2019 KAMILLE CHAVEZ DO Ot Z79.4 CRANE ENGINEER (CURRENT) USE OF INSULIN 01/26/2019 KAMILLE CHAVEZ DO Ot Z79.899 OTHER USP (CURRENT) DRUG THERAPY 01/26/2019 KAMILLE CHAVEZ DO Ot Z88.0 ALLERGY STATUS TO PENICILLIN 01/26/2019 PRESTON HOLLEY MD Ot R56.9 UNSPECIFIED CONVULSIONS 01/26/2019 PRESTON HOLLEY MD Ot R56.9 UNSPECIFIED CONVULSIONS 01/26/2019 PRESTON HOLLEY MD Ot Z79.899 OTHER USP (CURRENT) DRUG THERAPY 01/26/2019 PRESTON HOLLEY MD Ot R56.9 UNSPECIFIED CONVULSIONS 01/26/2019 KAMILLE CHAVEZ [...] HOLLEY MD Ot R56.9 UNSPECIFIED CONVULSIONS 01/26/2019 GLORIA WALDEN AGILE SCRUM COACH Ot J98.4 OTHER DISORDERS OF LUNG 01/26/2019 GLORIA WALDEN APRN Ot R56.9 UNSPECIFIED CONVULSIONS 01/26/2019 KARTHIK WARD MEDICAL CARE EVALUATION SPECIALIST Ot E78.5 HYPERLIPIDEMIA, UNSPECIFIED 01/26/2019 BAIMA KARTHIK L MEDICAL CARE EVALUATION SPECIALIST Ot I10 ESSENTIAL (PRIMARY) HYPERTENSION 01/26/2019 KARTHIK WARD MEDICAL CARE EVALUATION SPECIALIST Ot R06.09 OTHER FORMS OF DYSPNEA 01/26/2019 CESARIOMA KARTHIK L MEDICAL CARE EVALUATION SPECIALIST Ot R07.9 CHEST PAIN, UNSPECIFIED 01/26/2019 MALLY BRITO DO Ot R19.7 DIARRHEA, UNSPECIFIED 01/26/2019 GLORIA WALDEN AGILE SCRUM COACH Ot J45.909 UNSPECIFIED ASTHMA, UNCOMPLICATED 01/26/2019 GLORIA WALDEN AGILE SCRUM COACH Ot Z72.0 TOBACCO USE 01/26/2019 GLORIA WALDEN AGILE SCRUM COACH Ot R91.8 OTHER NONSPECIFIC ABNORMAL FINDING OF GUSTAVO 01/26/2019 GLORIA WALDEN AGILE SCRUM COACH Ot Z72.0 TOBACCO USE 01/26/2019 GLORIA WALDEN AGILE SCRUM COACH Ot R91.8 OTHER NONSPECIFIC ABNORMAL FINDING OF GUSTAVO 01/26/2019 KAMILLE CHAVEZ DO Ot Z01.818 ENCOUNTER FOR OTHER PREPROCEDURAL EXAMIN 01/26/2019 GLORIA WALDEN AGILE SCRUM COACH Ot G47.10 HYPERSOMNIA, UNSPECIFIED 01/26/2019 GLORIA WALDEN AGILE SCRUM COACH Ot J45.909 UNSPECIFIED ASTHMA, UNCOMPLICATED 01/26/2019 GLORIA WALDEN AGILE SCRUM COACH Ot J98.4 OTHER DISORDERS OF LUNG 01/26/2019 GLORIA WALDEN AGILE SCRUM COACH Ot R06.00 DYSPNEA, UNSPECIFIED 01/26/2019 GLORIA WALDEN APRN Ot Z72.0 TOBACCO USE 01/26/2019 GLORIA WALDEN AGILE SCRUM COACH Ot C34.90 MALIGNANT NEOPLASM OF UNSP PART OF UNSP 01/26/2019 GLORIA WALDEN APRN Ot G47.10 HYPERSOMNIA, UNSPECIFIED 01/26/2019 GLORIA WALDEN APRN Ot J45.909 UNSPECIFIED ASTHMA, UNCOMPLICATED 01/26/2019 GLORIA WALDEN APRN Ot J98.4 OTHER DISORDERS OF LUNG 01/26/2019 GLORIA WALDEN APRN Ot Z72.0 TOBACCO USE 01/27/2019 GALA TALLEY APRN Ot E03.9 HYPOTHYROIDISM, UNSPECIFIED 01/27/2019 GALA TALLEY APRN Ot E11.9 TYPE 2 DIABETES MELLITUS WITHOUT COMPLIC 01/27/2019 GALA TALLEY APRN Ot E78.00 PURE HYPERCHOLESTEROLEMIA, UNSPECIFIED 01/27/2019 GALA TALLEY APRN Ot F31.9 BIPOLAR DISORDER, UNSPECIFIED 01/27/2019 GALA TALLEY APRN Ot F41.9 ANXIETY DISORDER, UNSPECIFIED 01/27/2019 GALA TALLEY APRN Ot I10 ESSENTIAL (PRIMARY) HYPERTENSION 01/27/2019 GALA TALLEY APRN Ot J06.9 ACUTE UPPER RESPIRATORY INFECTION, UNSPE 01/27/2019 GALA TALLEY APRN Ot J43.9 EMPHYSEMA, UNSPECIFIED 01/27/2019 GALA TALLEY APRN Ot J45.909 UNSPECIFIED ASTHMA, UNCOMPLICATED 01/27/2019 GALA TALLEY APRN Ot K21.9 GASTRO-ESOPHAGEAL REFLUX DISEASE WITHOUT 01/27/2019 GALA TALLEY APRN Ot R05 COUGH 01/27/2019 GALA TALLEY APRN Ot Z79.4 CRANE ENGINEER (CURRENT) USE OF INSULIN 01/27/2019 GALA TALLEY APRN Ot Z79.82 CRANE ENGINEER (CURRENT) USE OF ASPIRIN 01/27/2019 GALA TALLEY APRN Ot Z87.19 PERSONAL HISTORY OF OTHER DISEASES OF TH 01/27/2019 GALA TALLEY APRN Ot Z88.0 ALLERGY STATUS TO PENICILLIN 01/27/2019 GALA TALLEY APRN Ot Z88.5 ALLERGY STATUS TO NARCOTIC AGENT STATUS 01/27/2019 GALA TALLEY AGILE SCRUM COACH Ot Z90.49 ACQUIRED ABSENCE OF OTHER SPECIFIED PART 01/27/2019 GALA TALLEY AGILE SCRUM COACH Ot Z90.710 ACQUIRED ABSENCE OF BOTH CERVIX AND UTER 01/27/2019 GALA TALLEY AGILE SCRUM COACH Ot Z90.89 ACQUIRED ABSENCE OF OTHER ORGANS 01/27/2019 GALA TALLEY APRN Ot Z91.041 RADIOGRAPHIC DYE ALLERGY STATUS 01/27/2019 KAMILLE CHAVEZ DO Ot F17.210 NICOTINE DEPENDENCE, CIGARETTES, UNCOMPL 01/27/2019 KAMILLE CHAVEZ DO Ot F31.9 BIPOLAR DISORDER, UNSPECIFIED 01/27/2019 KAMILLE CHAVEZ DO Ot F41.9 ANXIETY DISORDER, UNSPECIFIED 01/27/2019 KAMILLE CHAVEZ DO Ot G47.10 HYPERSOMNIA, UNSPECIFIED 01/27/2019 KAMILLE CHAVEZ DO Ot J45.909 UNSPECIFIED ASTHMA, UNCOMPLICATED 01/27/2019 KAMILLE CHAVEZ DO Ot J98.4 OTHER DISORDERS OF LUNG 01/27/2019 KAMILLE CHAVEZ DO Ot R06.00 DYSPNEA, UNSPECIFIED 01/27/2019 KAMILLE CHAVEZ DO Ot R91.8 OTHER NONSPECIFIC ABNORMAL FINDING OF GUSTAVO 01/27/2019 KAMILLE CHAVEZ DO Ot Z79.4 USP (CURRENT) USE OF INSULIN 01/27/2019 KAMILLE CHAVEZ DO Ot 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 01/27/2019 KAMILLE CHAVEZ DO Ot Z88.0 ALLERGY STATUS TO PENICILLIN 01/28/2019 KAMILLE CHAVEZ DO Ot F17.210 NICOTINE DEPENDENCE, CIGARETTES, UNCOMPL 01/28/2019 KAMILLE CHAVEZ DO Ot F31.9 BIPOLAR DISORDER, UNSPECIFIED 01/28/2019 KAMILLE CHAVEZ DO Ot F41.9 ANXIETY DISORDER, UNSPECIFIED 01/28/2019 KAMILLE CHAVEZ DO Ot G47.10 HYPERSOMNIA, UNSPECIFIED 01/28/2019 KAMILLE CHAVEZ DO Ot J45.909 UNSPECIFIED ASTHMA, UNCOMPLICATED 01/28/2019 KAMILLE CHAVEZ DO Ot J98.4 OTHER DISORDERS OF LUNG 01/28/2019 KAMILLE CHAVEZ DO Ot R06.00 DYSPNEA, UNSPECIFIED 01/28/2019 KAMILLE CHAVEZ DO Ot R91.8 OTHER NONSPECIFIC ABNORMAL FINDING OF GUSTAVO 01/28/2019 KAIMLLE CHAVEZ DO Ot Z79.4 USP (CURRENT) USE OF INSULIN 01/28/2019 KAMILLE CHAVEZ DO Ot Z79.899 OTHER USP (CURRENT) DRUG THERAPY 01/28/2019 KAMILLE CHAVEZ DO Ot Z88.0 ALLERGY STATUS TO PENICILLIN 01/28/2019 MALLY BRITO DO Ot R10.9 UNSPECIFIED ABDOMINAL PAIN 01/28/2019 MALLY BRITO DO Ot R19.7 DIARRHEA, UNSPECIFIED 01/29/2019 GALA TALLEY APRN Ot E03.9 HYPOTHYROIDISM, UNSPECIFIED 01/29/2019 GALA TALLEY APRN Ot E11.9 TYPE 2 DIABETES MELLITUS WITHOUT COMPLIC 01/29/2019 GALA TALLEY APRN Ot E78.00 PURE HYPERCHOLESTEROLEMIA, UNSPECIFIED 01/29/2019 GALA TALLEY APRN Ot F31.9 BIPOLAR DISORDER, UNSPECIFIED 01/29/2019 GALA TALLEY APRN Ot F41.9 ANXIETY DISORDER, UNSPECIFIED 01/29/2019 GALA TALLEY APRN Ot I10 ESSENTIAL (PRIMARY) HYPERTENSION 01/29/2019 GALA TALLEY APRN Ot J06.9 ACUTE UPPER RESPIRATORY INFECTION, UNSPE 01/29/2019 GALA TALLEY APRN Ot J43.9 EMPHYSEMA, UNSPECIFIED 01/29/2019 GALA TALLEY APRN Ot J45.909 UNSPECIFIED ASTHMA, UNCOMPLICATED 01/29/2019 GALA TALLEY APRN Ot K21.9 GASTRO-ESOPHAGEAL REFLUX DISEASE WITHOUT 01/29/2019 GALA TALLEY APRN Ot R05 COUGH 01/29/2019 GALA TALLEY APRN Ot Z79.4 CRANE ENGINEER (CURRENT) USE OF INSULIN 01/29/2019 GALA TALLEY APRN Ot Z79.82 CRANE ENGINEER (CURRENT) USE OF ASPIRIN 01/29/2019 GALA TALLEY APRN Ot Z87.19 PERSONAL HISTORY OF OTHER DISEASES OF TH 01/29/2019 GALA TALLEY APRN Ot Z88.0 ALLERGY STATUS TO PENICILLIN 01/29/2019 GALA TALLEY APRN Ot Z88.5 ALLERGY STATUS TO NARCOTIC AGENT STATUS 01/29/2019 GALA TALLEY APRN Ot Z90.49 ACQUIRED ABSENCE OF OTHER SPECIFIED PART 01/29/2019 GALA TALLEY APRN Ot Z90.710 ACQUIRED ABSENCE OF BOTH CERVIX AND UTER 01/29/2019 GALA TALLEY APRN Ot Z90.89 ACQUIRED ABSENCE OF OTHER ORGANS 01/29/2019 GALA TALLEY APRN Ot Z91.041 RADIOGRAPHIC DYE ALLERGY STATUS 01/29/2019 GALA TALLEY APRN Ot E03.9 HYPOTHYROIDISM, UNSPECIFIED 01/29/2019 GALA TALLEY APRN Ot E11.9 TYPE 2 DIABETES MELLITUS WITHOUT COMPLIC 01/29/2019 GALA TALLEY APRN Ot E78.00 PURE HYPERCHOLESTEROLEMIA, UNSPECIFIED 01/29/2019 GALA TALLEY APRN Ot F31.9 BIPOLAR DISORDER, UNSPECIFIED 01/29/2019 GALA TALLEY APRN Ot F41.9 ANXIETY DISORDER, UNSPECIFIED 01/29/2019 GALA TALLEY APRN Ot I10 ESSENTIAL (PRIMARY) HYPERTENSION 01/29/2019 GALA TALLEY APRN Ot J06.9 ACUTE UPPER RESPIRATORY INFECTION, UNSPE 01/29/2019 GALA TALLEY APRN Ot J43.9 EMPHYSEMA, UNSPECIFIED 01/29/2019 GALA TALLEY APRN Ot J45.909 UNSPECIFIED ASTHMA, UNCOMPLICATED 01/29/2019 GALA TALLEY APRN Ot K21.9 GASTRO-ESOPHAGEAL REFLUX DISEASE WITHOUT 01/29/2019 GALA TALLEY APRN Ot R05 COUGH 01/29/2019 GALA TALLEY APRN Ot Z79.4 CRANE ENGINEER (CURRENT) USE OF INSULIN 01/29/2019 GALA TALLEY APRN Ot Z79.82 CRANE ENGINEER (CURRENT) USE OF ASPIRIN 01/29/2019 GALA TALLEY APRN Ot Z87.19 PERSONAL HISTORY OF OTHER DISEASES OF TH 01/29/2019 GALA TALLEY APRN Ot Z88.0 ALLERGY STATUS TO PENICILLIN 01/29/2019 GALA TALLEY APRN Ot Z88.5 ALLERGY STATUS TO NARCOTIC AGENT STATUS 01/29/2019 GALA TALLEY APRN Ot Z90.49 ACQUIRED ABSENCE OF OTHER SPECIFIED PART 01/29/2019 GALA TALLEY APRN Ot Z90.710 ACQUIRED ABSENCE OF BOTH CERVIX AND UTER 01/29/2019 GALA TALLEY APRN Ot Z90.89 ACQUIRED ABSENCE OF OTHER ORGANS 01/29/2019 GALA TALLEY George LEDBETTER Ot Z91.041 RADIOGRAPHIC DYE ALLERGY STATUS 02/01/2019 PRESTON HOLLEY MD Ot R56.9 UNSPECIFIED CONVULSIONS 02/01/2019 PRESTON HOLLEY MD Ot R56.9 UNSPECIFIED CONVULSIONS 02/01/2019 PRESTON HOLLEY MD Ot 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 02/01/2019 PRESTON HOLLEY MD Ot R56.9 UNSPECIFIED CONVULSIONS 02/01/2019 KAMILLE CHAVEZ DO Ot E66.9 OBESITY, UNSPECIFIED 02/01/2019 KAMILLE CHAVEZ DO Ot J44.9 CHRONIC OBSTRUCTIVE PULMONARY DISEASE, U 02/01/2019 KAMILLE CHAVEZ DO Ot Z72.0 TOBACCO USE 02/01/2019 KAMILLE CHAVEZ DO Ot E66.9 OBESITY, UNSPECIFIED 02/01/2019 KAMILLE CHAVEZ DO Ot J43.9 EMPHYSEMA, UNSPECIFIED 02/01/2019 KAMILLE CHAVEZ DO Ot Z72.0 TOBACCO USE 02/01/2019 PRESTON HOLLEY MD Ot R56.9 UNSPECIFIED CONVULSIONS 02/01/2019 GLORIA WALDEN APRN Ot J98.4 OTHER DISORDERS OF LUNG 02/01/2019 GLORIA WALDEN APRN Ot R56.9 UNSPECIFIED CONVULSIONS 02/01/2019 KARTHIK WARD MEDICAL CARE EVALUATION SPECIALIST Ot E78.5 HYPERLIPIDEMIA, UNSPECIFIED 02/01/2019 KARTHIK WARD MEDICAL CARE EVALUATION SPECIALIST Ot I10 ESSENTIAL (PRIMARY) HYPERTENSION 02/01/2019 KARTHIK WARD MEDICAL CARE EVALUATION SPECIALIST Ot R06.09 OTHER FORMS OF DYSPNEA 02/01/2019 KARTHIK WARD MEDICAL CARE EVALUATION SPECIALIST Ot R07.9 CHEST PAIN, UNSPECIFIED 02/01/2019 MALLY BRITO DO Ot R19.7 DIARRHEA, UNSPECIFIED 02/01/2019 GLORIA WALDEN APRN Ot J45.909 UNSPECIFIED ASTHMA, UNCOMPLICATED 02/01/2019 GLORIA WALDEN APRN Ot Z72.0 TOBACCO USE 02/01/2019 GLORIA WALDEN APRN Ot R91.8 OTHER NONSPECIFIC ABNORMAL FINDING OF GUSTAVO 02/01/2019 IRAM, GLORIA E AGILE SCRUM COACH Ot Z72.0 TOBACCO USE 02/01/2019 GLORIA WALDEN AGILE SCRUM COACH Ot R91.8 OTHER NONSPECIFIC ABNORMAL FINDING OF GUSTAVO 02/01/2019 KAMILLE CHAVEZ DO Ot Z01.818 ENCOUNTER FOR OTHER PREPROCEDURAL EXAMIN 02/01/2019 GLORIA WALDEN AGILE SCRUM COACH Ot G47.10 HYPERSOMNIA, UNSPECIFIED 02/01/2019 GLORIA WALDEN AGILE SCRUM COACH Ot J45.909 UNSPECIFIED ASTHMA, UNCOMPLICATED 02/01/2019 GLORIA WALDEN AGILE SCRUM COACH Ot J98.4 OTHER DISORDERS OF LUNG 02/01/2019 GLORIA WALDEN AGILE SCRUM COACH Ot R06.00 DYSPNEA, UNSPECIFIED 02/01/2019 GLORIA WALDEN AGILE SCRUM COACH Ot Z72.0 TOBACCO USE 02/01/2019 GLORIA WALDEN AGILE SCRUM COACH Ot C34.90 MALIGNANT NEOPLASM OF UNSP PART OF UNSP 02/01/2019 GLORIA WALDEN AGILE SCRUM COACH Ot G47.10 HYPERSOMNIA, UNSPECIFIED 02/01/2019 GLORIA WALDEN AGILE SCRUM COACH Ot J45.909 UNSPECIFIED ASTHMA, UNCOMPLICATED 02/01/2019 GLORIA WALDEN AGILE SCRUM COACH Ot J98.4 OTHER DISORDERS OF LUNG 02/01/2019 GLORIA WALDEN AGILE SCRUM COACH Ot Z72.0 TOBACCO USE 02/01/2019 MALLY BRITO DO Ot R10.9 UNSPECIFIED ABDOMINAL PAIN 02/01/2019 MALLY BRITO DO Ot R19.7 DIARRHEA, UNSPECIFIED 02/01/2019 PRESTON HOLLEY MD Ot R56.9 UNSPECIFIED CONVULSIONS 02/01/2019 PRESTON HOLLEY MD Ot R56.9 UNSPECIFIED CONVULSIONS 02/01/2019 PRESTON HOLLEY MD Ot Z79.899 OTHER USP (CURRENT) DRUG THERAPY 02/01/2019 PRESTON HOLLEY MD Ot R56.9 UNSPECIFIED CONVULSIONS 02/01/2019 KAMILLE CHAVEZ DO Ot E66.9 OBESITY, UNSPECIFIED 02/01/2019 KAMILLE CHAVEZ DO Ot J44.9 CHRONIC OBSTRUCTIVE PULMONARY DISEASE, U 02/01/2019 KAMILLE CHAVEZ DO Ot Z72.0 TOBACCO USE 02/01/2019 KAMILLE CHAVEZ DO Ot E66.9 OBESITY, UNSPECIFIED 02/01/2019 KAMILLE CHAVEZ DO Ot J43.9 EMPHYSEMA, UNSPECIFIED 02/01/2019 KAMILLE CHAVEZ DO Ot Z72.0 TOBACCO USE 02/01/2019 PRESTON HOLLEY MD Ot R56.9 UNSPECIFIED CONVULSIONS 02/01/2019 GLORIA WALDEN AGILE SCRUM COACH Ot J98.4 OTHER DISORDERS OF LUNG 02/01/2019 GLORIA WALDEN AGILE SCRUM COACH Ot R56.9 UNSPECIFIED CONVULSIONS 02/01/2019 CESARIOEDGARDO KARTHIK L MEDICAL CARE EVALUATION SPECIALIST Ot E78.5 HYPERLIPIDEMIA, UNSPECIFIED 02/01/2019 BAIMA KARTHIK L MEDICAL CARE EVALUATION SPECIALIST Ot I10 ESSENTIAL (PRIMARY) HYPERTENSION 02/01/2019 BAIMA KARTHIK L MEDICAL CARE EVALUATION SPECIALIST Ot R06.09 OTHER FORMS OF DYSPNEA 02/01/2019 BAIMA KARTHIK L MEDICAL CARE EVALUATION SPECIALIST Ot R07.9 CHEST PAIN, UNSPECIFIED 02/01/2019 MALLY BRITO DO Ot R19.7 DIARRHEA, UNSPECIFIED 02/01/2019 GLORIA WALDEN AGILE SCRUM COACH Ot J45.909 UNSPECIFIED ASTHMA, UNCOMPLICATED 02/01/2019 GLORIA WALDEN AGILE SCRUM COACH Ot Z72.0 TOBACCO USE 02/01/2019 GLORIA WALDEN AGILE SCRUM COACH Ot R91.8 OTHER NONSPECIFIC ABNORMAL FINDING OF GUSTAVO 02/01/2019 GLORIA WALDEN AGILE SCRUM COACH Ot Z72.0 TOBACCO USE 02/01/2019 GLORIA WALDEN AGILE SCRUM COACH Ot R91.8 OTHER NONSPECIFIC ABNORMAL FINDING OF GUSTAVO 02/01/2019 KAMILLE CHAVEZ DO Ot Z01.818 ENCOUNTER FOR OTHER PREPROCEDURAL EXAMIN 02/01/2019 GLORIA WALDEN AGILE SCRUM COACH Ot G47.10 HYPERSOMNIA, UNSPECIFIED 02/01/2019 GLORIA WALDEN AGILE SCRUM COACH Ot J45.909 UNSPECIFIED ASTHMA, UNCOMPLICATED 02/01/2019 GLORIA WALDEN AGILE SCRUM COACH Ot J98.4 OTHER DISORDERS OF LUNG 02/01/2019 GLORIA WALDEN AGILE SCRUM COACH Ot R06.00 DYSPNEA, UNSPECIFIED 02/01/2019 GLORIA WALDEN AGILE SCRUM COACH Ot Z72.0 TOBACCO USE 02/01/2019 GLORIA WALDEN AGILE SCRUM COACH Ot C34.90 MALIGNANT NEOPLASM OF UNSP PART OF UNSP 02/01/2019 GLORIA WALDEN APRN Ot G47.10 HYPERSOMNIA, UNSPECIFIED 02/01/2019 GLORIA WALDEN APRN Ot J45.909 UNSPECIFIED ASTHMA, UNCOMPLICATED 02/01/2019 GLORIA WALDEN APRN Ot J98.4 OTHER DISORDERS OF LUNG 02/01/2019 GLORIA WALDEN APRN Ot Z72.0 TOBACCO USE 02/01/2019 BRITO DO, MALLY D Ot R10.9 UNSPECIFIED ABDOMINAL PAIN 02/01/2019 BRITO DO, MALLY D Ot R19.7 DIARRHEA, UNSPECIFIED 02/01/2019 BRITO DO, MALLY D Ot R10.9 UNSPECIFIED ABDOMINAL PAIN 02/01/2019 BRITO DO, MALLY D Ot R19.7 DIARRHEA, UNSPECIFIED 02/01/2019 GLORIA WALDEN APRN Ot C34.90 MALIGNANT NEOPLASM OF [facility] PART OF [facility] 02/01/2019 GLORIA WALDEN APRN Ot G47.10 HYPERSOMNIA, UNSPECIFIED 02/01/2019 GLORIA WALDEN APRN Ot J45.909 UNSPECIFIED ASTHMA, UNCOMPLICATED 02/01/2019 GLORIA WALDEN APRN Ot J98.4 OTHER DISORDERS OF LUNG 02/01/2019 GLORIA WALDEN APRN Ot Z72.0 TOBACCO USE 02/01/2019 KARTHIK WARD MEDICAL CARE EVALUATION SPECIALIST Ot E78.5 HYPERLIPIDEMIA, UNSPECIFIED 02/01/2019 KARTHIK WARD MEDICAL CARE EVALUATION SPECIALIST Ot I10 ESSENTIAL (PRIMARY) HYPERTENSION 02/01/2019 KARTHIK WARD MEDICAL CARE EVALUATION SPECIALIST Ot R06.09 OTHER FORMS OF DYSPNEA 02/01/2019 KARTHIK WARD MEDICAL CARE EVALUATION SPECIALIST Ot R07.9 CHEST PAIN, UNSPECIFIED 02/02/2019 KAMILLE CHAVEZ DO Ot G47.10 HYPERSOMNIA, UNSPECIFIED 02/02/2019 KAMILLE CHAVEZ DO Ot J45.909 UNSPECIFIED ASTHMA, UNCOMPLICATED 02/02/2019 KAMILLE CHAVEZ DO Ot J98.4 OTHER DISORDERS OF LUNG 02/02/2019 KAMILLE CHAVEZ DO Ot Z72.0 TOBACCO USE 02/02/2019 KAMILLE CHAVEZ DO Ot F17.210 NICOTINE DEPENDENCE, CIGARETTES, UNCOMPL 02/02/2019 KAMILLE CHAVEZ DO Ot F31.9 BIPOLAR DISORDER, UNSPECIFIED 02/02/2019 KAMILLE CHAVEZ DO Ot F41.9 ANXIETY DISORDER, UNSPECIFIED 02/02/2019 KAMILLE CHAVEZ DO Ot G47.10 HYPERSOMNIA, UNSPECIFIED 02/02/2019 KAMILLE CHAVEZ DO Ot J45.909 UNSPECIFIED ASTHMA, UNCOMPLICATED 02/02/2019 KAMILLE CHAVEZ DO Ot J98.4 OTHER DISORDERS OF LUNG 02/02/2019 KAMILLE CHAVEZ DO Ot R06.00 DYSPNEA, UNSPECIFIED 02/02/2019 KAMILLE CHAVEZ DO Ot R91.8 OTHER NONSPECIFIC ABNORMAL FINDING OF GUSTAV[place] 02/02/2019 KAMILLE CHAVEZ DO Ot Z79.4 USP (CURRENT) USE OF INSULIN 02/02/2019 KAMILLE CHAVEZ DO Ot Z79.899 OTHER USP (CURRENT) DRUG THERAPY 02/02/2019 KAMILLE CHAVEZ DO Ot Z88.0 ALLERGY STATUS TO PENICILLIN 02/10/2019 PRESTON HOLLEY MD Ot R56.9 UNSPECIFIED CONVULSIONS 02/10/2019 PRESTON HOLLEY MD Ot R56.9 UNSPECIFIED CONVULSIONS 02/10/2019 PRESTON HOLLEY MD Ot Z79.899 OTHER USP (CURRENT) DRUG THERAPY 02/10/2019 PRESTON HOLLEY MD Ot R56.9 UNSPECIFIED CONVULSIONS 02/10/2019 KAMILLE CHAVEZ DO Ot E66.9 OBESITY, UNSPECIFIED 02/10/2019 KAMILLE CHAVEZ DO Ot J44.9 CHRONIC OBSTRUCTIVE PULMONARY DISEASE, U 02/10/2019 KAMILLE CHAVEZ DO Ot Z72.0 TOBACCO USE 02/10/2019 KAMILLE CHAVEZ DO Ot E66.9 OBESITY, UNSPECIFIED 02/10/2019 KAMILLE CHAVEZ DO Ot J43.9 EMPHYSEMA, UNSPECIFIED 02/10/2019 KAMILLE CHAVEZ DO Ot Z72.0 TOBACCO USE 02/10/2019 PRESTON HOLLEY MD Ot R56.9 UNSPECIFIED CONVULSIONS 02/10/2019 GLORIA WALDEN APRN Ot J98.4 OTHER DISORDERS OF LUNG 02/10/2019 GLORIA WALDEN APRN Ot R56.9 UNSPECIFIED CONVULSIONS 02/10/2019 BAIMA, KARTHIK L MEDICAL CARE EVALUATION SPECIALIST Ot E78.5 HYPERLIPIDEMIA, UNSPECIFIED 02/10/2019 KARTHIK WARD MEDICAL CARE EVALUATION SPECIALIST Ot I10 ESSENTIAL (PRIMARY) HYPERTENSION 02/10/2019 KARTHIK WARD MEDICAL CARE EVALUATION SPECIALIST Ot R06.09 OTHER FORMS OF DYSPNEA 02/10/2019 KARTHIK WARD MEDICAL CARE EVALUATION SPECIALIST Ot R07.9 CHEST PAIN, UNSPECIFIED 02/10/2019 MALLY BRITO DO Ot R19.7 DIARRHEA, UNSPECIFIED 02/10/2019 GLORIA WALDEN AGILE SCRUM COACH Ot J45.909 UNSPECIFIED ASTHMA, UNCOMPLICATED 02/10/2019 GLORIA WALDEN AGILE SCRUM COACH Ot Z72.0 TOBACCO USE 02/10/2019 GLORIA WALDEN AGILE SCRUM COACH Ot R91.8 OTHER NONSPECIFIC ABNORMAL FINDING OF [place] 02/10/2019 GLORIA WALDEN AGILE SCRUM COACH Ot Z72.0 TOBACCO USE 02/10/2019 GLORIA WALDEN AGILE SCRUM COACH Ot R91.8 OTHER NONSPECIFIC ABNORMAL FINDING OF [place] 02/10/2019 KAMILLE CHAVEZ DO Ot Z01.818 ENCOUNTER FOR OTHER PREPROCEDURAL EXAMIN 02/10/2019 GLORIA WALDEN AGILE SCRUM COACH Ot G47.10 HYPERSOMNIA, UNSPECIFIED 02/10/2019 GLORIA WALDEN AGILE SCRUM COACH Ot J45.909 UNSPECIFIED ASTHMA, UNCOMPLICATED 02/10/2019 GLORIA WALDEN AGILE SCRUM COACH Ot J98.4 OTHER DISORDERS OF LUNG 02/10/2019 GLORIA WALDEN AGILE SCRUM COACH Ot R06.00 DYSPNEA, UNSPECIFIED 02/10/2019 GLORIA WALDEN APRN Ot Z72.0 TOBACCO USE 02/10/2019 GLORIA WALDEN AGILE SCRUM COACH Ot C34.90 MALIGNANT NEOPLASM OF UNSP PART OF UNSP 02/10/2019 GLORIA WALDEN AGILE SCRUM COACH Ot G47.10 HYPERSOMNIA, UNSPECIFIED 02/10/2019 GLORIA WALDEN AGILE SCRUM COACH Ot J45.909 UNSPECIFIED ASTHMA, UNCOMPLICATED 02/10/2019 GLORIA WALDEN AGILE SCRUM COACH Ot J98.4 OTHER DISORDERS OF LUNG 02/10/2019 GLORIA WALDEN AGILE SCRUM COACH Ot Z72.0 TOBACCO USE 02/10/2019 KAMILLE CHAVEZ DO Ot G47.10 HYPERSOMNIA, UNSPECIFIED 02/10/2019 KAMILLE CHAVEZ DO Ot J45.909 UNSPECIFIED ASTHMA, UNCOMPLICATED 02/10/2019 KAMILLE CHAVEZ DO Ot J98.4 OTHER DISORDERS OF LUNG 02/10/2019 KAMILLE CHAVEZ DO Ot Z72.0 TOBACCO USE 02/10/2019 MALLY BRITO DO Ot R10.9 UNSPECIFIED ABDOMINAL PAIN 02/10/2019 MALLY BRITO DO Ot R19.7 DIARRHEA, UNSPECIFIED 02/11/2019 MALLY BRITO DO Ot R19.7 DIARRHEA, UNSPECIFIED Procedures There is no data. Results Test [...] B ANTIGENS BY IA [facility] Comprehensive metabolic panel - 01/24/18 20:05 Serum [...] or plasma urea nitrogen/creatinine mass ratio 19 [facility] Serum or plasma creatinine measurement with calculation of estimated glomerular filtration rate > [facility] Serum or plasma glucose measurement (mass/volume) 174 [...] - 03/31/18 09:23 ABSOLUTE NEUTROPHILS 3055 cells/uL 2470-2001 ABSOLUTE MONOCYTES 455 cells/uL 200-950 ABSOLUTE EOSINOPHILS 195 cells/uL 15-500 ABSOLUTE BASOPHILS 0 cells/uL 0-200 NEUTROPHILS 47 % NRG LYMPHOCYTES 43 % NRG MONOCYTES 7 % NRG EOSINOPHILS 3 % NRG BASOPHILS 0 % NRG ABSOLUTE LYMPHOCYTES 2795 cells/uL 850-3900 PLATELET ESTIMATION ADEQUATE ADEQUATE CBC MORPHOLOGY NORMAL COMMENT(S) [facility] Complete blood count (CBC) with automated white [...] measurement by glucometer (mass/volume) 241 mg/dL 70-110 Sputum Gram stain - 01/26/19 08:30 Sputum Gram stain 01-27-19604. NRG Mycobacterium species detection by organism specific culture - 01/26/19 08:30 Bacteria identification in bronchial specimen by aerobe culture - 01/26/19 08: 30 QUANTITY OF GROWTH . NRG Bacteria identification in bronchial specimen by aerobe culture USUAL RESP NRG FTX;REPORTABLE 10,000 CFU/ML NRG C FUNGUS SPUTUM FLUID TISSUE - 01/26/19 08:30 FTX;REPORTABLE FINAL REQUIRES 4 WEEKS NRG FUNGUS EXAM CURRENT REPORT: NEGATIVE NRG Sputum Gram stain - 01/26/19 08:31 Sputum Gram stain TNP NRG Bacteria identification in bronchial specimen by aerobe culture - 01/26/19 08: 31 Bacteria identification in bronchial specimen by aerobe culture NG NRG C FUNGUS SPUTUM FLUID TISSUE - 01/26/19 08:31 Complete blood count (CBC) with automated white blood cell (WBC) differential - 01/27/19 08:56 Blood leukocytes automated count (number/volume) 6.0 10*3/uL 4.3-11.0 Blood erythrocytes automated count (number/volume) 4.45 10*6/uL 4.35-5.85 Venous blood hemoglobin measurement (mass/volume) 14.7 g/dL 11.5-16.0 Blood hematocrit (volume fraction) 42 % 35-52 Automated erythrocyte mean corpuscular volume 93 [foz_us] 80-99 Automated erythrocyte mean corpuscular hemoglobin (mass per erythrocyte) 33 pg 25-34 Automated erythrocyte mean corpuscular hemoglobin concentration measurement ( mass/volume) 35 g/dL 32-36 Automated erythrocyte distribution width ratio 12.3 % 10.0-14.5 Automated blood platelet count (count/volume) 210 10*3/uL 130-400 Automated blood platelet mean volume measurement 10.4 [foz_us] 7.4-10.4 Automated blood neutrophils/100 leukocytes 73 % 42-75 Automated blood lymphocytes/100 leukocytes 18 % 12-44 Blood monocytes/100 leukocytes 7 % 0-12 Automated blood eosinophils/100 leukocytes 2 % 0-10 Automated blood basophils/100 leukocytes 0 % 0-10 Blood neutrophils automated count (number/volume) 4.4 10*3 1.8-7.8 Blood lymphocytes automated count (number/volume) 1.1 10*3 1.0-4.0 Blood monocytes automated count (number/volume) 0.4 10*3 0.0-1.0 Automated eosinophil count 0.1 10*3/uL 0.0-0.3 Automated blood basophil count (count/volume) 0.0 10*3/uL 0.0-0.1 Comprehensive metabolic panel - 01/27/19 08:56 Serum or plasma sodium measurement (moles/volume) 135 mmol/L 135-145 Serum or plasma potassium measurement (moles/volume) 4.0 mmol/L 3.6-5.0 Serum or plasma chloride measurement (moles/volume) 101 mmol/L 98-107 Carbon dioxide 27 mmol/L 21-32 Serum or plasma anion gap determination (moles/volume) 7 mmol/L 5-14 Serum or plasma urea nitrogen measurement (mass/volume) 9 mg/dL 7-18 Serum or plasma creatinine measurement (mass/volume) 0.83 mg/dL 0.60-1.30 Serum or plasma urea nitrogen/creatinine mass ratio 11 NRG Serum or plasma creatinine measurement with calculation of estimated glomerular filtration rate > NRG Serum or plasma glucose measurement (mass/volume) 286 mg/dL 70-105 Serum or plasma calcium measurement (mass/volume) 9.6 mg/dL 8.5-10.1 Serum or plasma total bilirubin measurement (mass/volume) 0.7 mg/dL 0.1-1.0 Serum or plasma alkaline phosphatase measurement (enzymatic activity/volume) 92 U/L 40-136 Serum or plasma aspartate aminotransferase measurement (enzymatic activity/ volume) 14 U/L 5-34 Serum or plasma alanine aminotransferase measurement (enzymatic activity/volume ) 17 U/L 0-55 Serum or plasma protein measurement (mass/volume) 6.8 g/dL 6.4-8.2 Serum or plasma albumin measurement (mass/volume) 4.1 g/dL 3.2-4.5 CALCIUM CORRECTED 9.5 mg/dL 8.5-10.1 Complete urinalysis with reflex to culture - 01/27/19 09:45 Urine color determination YELLOW NRG Urine clarity determination CLEAR NRG Urine pH measurement by test strip 7 5-9 Specific gravity of urine by test strip 1.010 1.016- 1.022 Urine protein assay by test [...] detection in urine sediment by light microscopy TRACE NRG Squamous epithelial cells detection in urine sediment by light microscopy 10-25 NRG Crystals detection in urine sediment by light microscopy NONE NRG Casts detection in urine sediment by light microscopy NONE NRG Mucus detection in urine sediment by light microscopy NEGATIVE NRG Complete urinalysis with reflex to culture YES NRG Yeast detection in urine sediment by light microscopy FEW NRG Bacterial urine culture - 01/27/19 09:45 Bacterial urine culture 3 OR MORE NRG COLONY COUNT 50,000 CFU/ML NRG FTX;REPORTABLE GRAM POSITIVE; SUGGESTING PROBABLE NRG FREE TEXT ENTRY 2 COLLECTION CONTAMINATION WITH SKIN NRG FREE TEXT ENTRY 3 GABRIELE. NO SUSCEPTIBILITY PERFORMED. NRG Complete blood count (CBC) with automated white blood cell (WBC) differential - 02/20/19 20:25 Blood leukocytes automated count (number/volume) 7.4 10*3/uL 4.3-11.0 Blood erythrocytes automated count (number/volume) 4.58 10*6/uL 4.35-5.85 Venous blood hemoglobin measurement (mass/volume) 15.1 g/dL 11.5-16.0 Blood hematocrit (volume fraction) 43 % 35-52 Automated erythrocyte mean corpuscular volume 93 [foz_us] 80-99 Automated erythrocyte mean corpuscular hemoglobin (mass per erythrocyte) 33 pg 25-34 Automated erythrocyte mean corpuscular hemoglobin concentration measurement ( mass/volume) 35 g/dL 32-36 Automated erythrocyte distribution width ratio 12.7 % 10.0-14.5 Automated blood platelet count (count/volume) 281 10*3/uL 130-400 Automated blood platelet mean volume measurement 10.3 [foz_us] 7.4-10.4 Automated blood neutrophils/100 leukocytes 64 % 42-75 Automated blood lymphocytes/100 leukocytes 25 % 12-44 Blood monocytes/100 leukocytes 8 % 0-12 Automated blood eosinophils/100 leukocytes 3 % 0-10 Automated blood basophils/100 leukocytes 0 % 0-10 Blood neutrophils automated count (number/volume) 4.7 10*3 1.8-7.8 Blood lymphocytes automated count (number/volume) 1.9 10*3 1.0-4.0 Blood monocytes automated count (number/volume) 0.6 10*3 0.0-1.0 Automated eosinophil count 0.2 10*3/uL 0.0-0.3 Automated blood basophil count (count/volume) 0.0 10*3/uL 0.0-0.1 Comprehensive metabolic panel - 02/20/19 20:25 Serum or plasma sodium measurement (moles/volume) 135 mmol/L 135-145 Serum or plasma potassium measurement (moles/volume) 4.0 mmol/L 3.6-5.0 Serum or plasma chloride measurement (moles/volume) 101 mmol/L 98-107 Carbon dioxide 21 mmol/L 21-32 Serum or plasma anion gap determination (moles/volume) 13 mmol/L 5-14 Serum or plasma urea nitrogen measurement (mass/volume) 10 mg/dL 7-18 Serum or plasma creatinine measurement (mass/volume) 0.88 mg/dL 0.60-1.30 Serum or plasma urea nitrogen/creatinine mass ratio 11 NRG Serum or plasma creatinine measurement with calculation of estimated glomerular filtration rate > NRG Serum or plasma glucose measurement (mass/volume) 361 mg/dL 70-105 Serum or plasma calcium measurement (mass/volume) 10.0 mg/dL 8.5-10.1 Serum or plasma total bilirubin measurement (mass/volume) 0.4 mg/dL 0.1-1.0 Serum or plasma alkaline phosphatase measurement (enzymatic activity/volume) 92 U/L 40-136 Serum or plasma aspartate aminotransferase measurement (enzymatic activity/ volume) 10 U/L 5-34 Serum or plasma alanine aminotransferase measurement (enzymatic activity/volume ) 17 U/L 0-55 Serum or plasma protein measurement (mass/volume) 6.9 g/dL 6.4-8.2 Serum or plasma albumin measurement (mass/volume) 4.3 g/dL 3.2-4.5 CALCIUM CORRECTED 9.8 mg/dL 8.5-10.1 Lipase - 02/20/19 20:25 Lipase 77 U/L 8-78 Encounters ACCT No. Visit Date/Time Discharge Status Pt. Type Provider Facility Loc./Unit Complaint [id number] 06/06/2014 08:47:00 06/06/2014 23:59:59 CLS Outpatient GERARDO KISER APRN [id number] 05/16/2014 10:11:00 05/16/2014 23:59:59 CLS Outpatient GERARDO KISER APRN [id number] 05/09/2014 09:17:00 05/09/2014 23:59:59 CLS Outpatient GERARDO KISER APRN [id number] 02/07/2017 11:07:00 Document Registration [id number] 02/10/2019 09:29:00 02/10/2019 23:59:59 CLS Outpatient MALLY BRITO DO [facility] RAD DIARRHEA [id number] 02/01/2019 09:38:00 02/01/2019 23:59:59 CLS Outpatient KAMILLE CHAVEZ DO [facility] RAD ABN CHEST CT [id number] 01/28/2019 07:52:00 01/28/2019 23:59:59 CLS Outpatient MALLY BRITO DO [facility] RAD DIARRHEA [id number] 01/27/2019 09:37:00 01/27/2019 12:29:00 DIS Emergency TALLEYGALA AGILE SCRUM COACH [facility] ER COUGH;VOMITING [id number] 01/26/2019 06:58:00 01/26/2019 09:50:00 DIS Outpatient KAMILLE CHAVEZ DO [facility] ENDO HYPERSOMNIA/DYSPNEA/ [id number] 01/24/2019 13:01:00 01/24/2019 23:59:59 CLS Preadmit RENETTA KRUSE FACC, VALENTIN HANDLEY CCDS [facility] CARD CHEST DISCOMFORT,SOB,COPD [id number] 01/19/2019 05:39:00 01/19/2019 14:32:00 DIS Outpatient KAMILLE CHAVEZ DO [facility] PREOP EBUS [id number] 01/17/2019 12:54:00 01/17/2019 23:59:59 CLS Outpatient RANI WALDENINE E AGILE SCRUM COACH [facility] RT ASTHMA,BRONCHITIS [id number] 01/14/2019 13:40:00 01/14/2019 23:59:59 CLS Outpatient RANI WALDENINE E AGILE SCRUM COACH [facility] RAD ASTHMA,DYSPNEA [id number] 12/28/2018 07:39:00 12/28/2018 23:59:59 CLS Preadmit RANI WALDENINE Stephanie AGILE SCRUM COACH [facility] RT ASTHMA,BRONCHITIS [id number] 07/01/2018 07:30:00 07/01/2018 23:59:59 CLS Outpatient KAMILLE CHAVEZ DO [facility] PREOP BRONCHOSCOPY [id number] 06/21/2018 07:43:00 06/21/2018 23:59:59 CLS Outpatient RANI WALDENINE E AGILE SCRUM COACH [facility] RAD LUNG MASS [id number] 06/08/2018 09:00:00 06/08/2018 23:59:59 CLS Preadmit JOSE R KRUSE, VINAY A INCONTINENCE, OVERACTIVE BLADDER, [facility] [id number] 04/15/2018 10:00:00 04/15/2018 23:59:59 CLS Preadmit MALLY BRITO DO [facility] CARD [id number] 03/31/2018 10:49:00 03/31/2018 13:24:00 DIS Emergency VENTURA KRUSE, BUSHRA Navas [facility] ER POSS PNEUMONIA [id number] 03/23/2018 08:23:00 03/23/2018 23:59:59 CLS Outpatient GLORIA WALDEN AGILE SCRUM COACH [facility] RAD R91.8 LUNG MASS [id number] 03/19/2018 20:10:00 03/20/2018 06:00:00 DIS Outpatient GLORIA WALDEN AGILE SCRUM COACH [facility] SLEEP J45.909 ASTHMA [id number] 03/17/2018 19:07:00 03/17/2018 20:59:00 DIS Emergency JOSSELIN QUINONEZ DO [facility] ER BS HIGH, MASS IN LUNG [id number] 03/15/2018 09:30:00 03/15/2018 23:59:59 CLS Preadmit GLORIA WALDEN AGILE SCRUM COACH [facility] PULM J45.909 ASTHMA [id number] 03/08/2018 12:09:00 03/08/2018 23:59:59 CLS Outpatient GLORIA WALDEN AGILE SCRUM COACH [facility] RAD J45.909 ASTHMA [id number] 03/04/2018 12:00:00 03/04/2018 23:59:59 CLS Preadmit MALLY BRITO DO [facility] CARD DIARRHEA [id number] 02/25/2018 08:02:00 02/25/2018 23:59:59 CLS Outpatient MALLY BRITO DO [facility] RAD DIARRHEA [id number] 02/23/2018 07:05:00 02/23/2018 23:59:59 CLS Outpatient KARTHIK WARD [facility] CARD CHEST PAIN, EXERTIONAL DYSPNEA [id number] 02/10/2018 14:17:00 02/10/2018 23:59:59 CLS Preadmit KARTHIK WARD [facility] CARD CHEST PAIN,EXERTIONAL DYSPNEA [id number] 02/02/2018 12:27:00 02/02/2018 15:40:00 DIS Outpatient MALLY BRITO DO [facility] ENDO SCREENING/GERD [id number] 01/28/2018 05:35:00 01/28/2018 12:23:00 DIS Outpatient MALLY BRITO DO [facility] PREOP COLONOSCOPY/EGD [id number] 01/24/2018 18:04:00 01/24/2018 21:28:00 DIS Emergency JACKY CORONEL [facility] ER DIAHRREA,VOMITING [id number] 04/20/2017 10:15:00 04/20/2017 23:59:59 CLS Preadmit GLORIA WALDEN AGILE SCRUM COACH [facility] PULM RESTRICTIVE LUNG DISEASE,SEIZURE [id number] 03/12/2017 13:00:00 04/19/2017 00:01:00 DIS Outpatient GLORIA WALDEN AGILE SCRUM COACH [facility] PULM RESTRICTIVE LUNG DISEASE,SEIZURE [id number] 03/30/2017 19:26:00 03/30/2017 21:15:00 DIS Emergency JOSSELIN QUINONEZ DO [facility] ER SOA [id number] 03/28/2017 13:33:00 03/28/2017 17:13:00 DIS Emergency TYLER CHUNG MD [facility] ER SOA [id number] 03/24/2017 14:15:00 03/24/2017 23:59:59 CLS Preadmit KAMILLE CHAVEZ DO [facility] RAD J43.9 COPD [id number] 03/24/2017 13:23:00 03/24/2017 15:50:00 DIS Emergency GALA TALLEY AGILE SCRUM COACH [facility] ER CHEST PAIN [id number] 03/21/2017 09:07:00 03/21/2017 12:05:00 DIS Emergency GALA TALLEY AGILE SCRUM COACH [facility] ER BLOODY AND FREQUENT STOOL [id number] 01/26/2017 12:34:00 01/27/2017 13:40:00 DIS Inpatient STIVEN RAYMOND MD [facility] 4TH DIVERTICULITIS [id number] 01/23/2017 12:36:00 01/23/2017 15:34:00 DIS Emergency GALA TALLEY AGILE SCRUM COACH [facility] ER FEVER/CHILLS CONSTIPATION/ DIARRHEA [id number] 01/12/2017 09:12:00 01/12/2017 23:59:59 CLS Outpatient PRESTON HOLLEY MD [facility] RT SEIZURE [id number] 12/20/2016 20:10:00 12/21/2016 06:10:00 DIS Outpatient KAMILLE CHAVEZ DO [facility] SLEEP SNORING [id number] 09/23/2016 08:51:00 09/23/2016 23:59:59 CLS Outpatient KAMILLE CHAVEZ DO [facility] RAD COPD,TOBACCO USER [id number] 08/13/2016 14:29:00 08/13/2016 23:59:59 CLS Outpatient KAMILLE CHAVEZ DO [facility] RT COPD,OBESITY [id number] 06/27/2016 15:19:00 06/27/2016 23:59:59 CLS Outpatient PRESTON HOLLEY MD [facility] RAD SEIZURE [id number] 05/15/2016 06:57:00 05/15/2016 12:50:00 DIS Outpatient RENETTA KRUSE FACC, VALENTIN HANDLEY CCDS [facility] CATH ANGINA,SOB LEG PAIN [id number] 05/12/2016 11:18:00 05/12/2016 23:59:59 CLS Outpatient PRESTON HOLLEY MD [facility] LAB SEIZURES [id number] 05/12/2016 09:25:00 05/12/2016 23:59:59 CLS Outpatient PRESTON HOLLEY MD [facility] RT SEIZURE NOS [id number] 02/27/2016 14:00:00 04/03/2016 09:43:00 DIS Outpatient CHAVA SHAFER MD [facility] REHAB CERVICAL STRAIN [id number] 02/10/2016 11:48:00 02/10/2016 14:00:00 DIS Emergency JACKY CORONEL [facility] ER R FOOT INJ [id number] 02/24/2019 08:00:00 PEN Preadmit MALLY BRITO DO [facility] SDC EPIGASTRIC ABDOMINAL PAIN [id number] 02/21/2019 21:00:00 PEN Preadmit GLORIA WALDEN APRN [facility] SLEEP HYPERSONMIA [id number] 02/20/2019 20:01:00 ACT Emergency GALA TALLEY APRN [facility] ER ABD PAIN,DIARRHEA [id number] 01/18/2019 16:40:00 01/18/2019 23:59:59 CLS Outpatient GERARDO KISER APRN [facility] [id number] 07/28/2018 12:00:00 Document Registration [id number] 03/31/2018 08:25:00 Document Registration [id number] 01/26/2018 21:02:00 01/26/2018 22:39:00 DIS Out[place] [facility] [place] [id number] 01/26/2018 21:13:23 Document Registration [id number] 03/11/2017 08:45:00 Document Registration
[2019-02-20] MEDS ORDERED: RX-DICYCLOMINE 10 MG (BENTYL) CAP PPK#4 PO STA (23:46)
[2019-02-20] MEDS ORDERED: DICY20TA10 PO (23:48)
[2019-02-20 23:52] VITALS: BP 113/74
--- NOTE | 2019-02-21 06:38 | Diagnostic Imaging Report ---
PROCEDURE: CT abdomen and pelvis without contrast. TECHNIQUE: Multiple contiguous axial images were obtained through the abdomen and pelvis without the use of intravenous contrast. Auto Exposure Controls were utilized during the CT exam to meet ALARA standards for radiation dose reduction. INDICATION: Nausea and vomiting. Abdominal pain. COMPARISON: 03/21/2017 FINDINGS: Evaluation of the included portions of the lung bases show partially visualized 1.4 x 1.2 cm opacity laterally in the left base (image 1, series 5). CT abdomen: The kidneys, adrenal glands, spleen, pancreas, and liver have an unremarkable noncontrast CT appearance. Small bowel loops are nondistended. Normal appendix is identified. There is colonic diverticulosis, but no CT evidence of acute diverticulitis. There is no loculated fluid collection, free fluid, nor free air within the abdomen. No abnormal mesenteric or retroperitoneal adenopathy is seen. Bony structures show no acute abnormalities. CT pelvis: Urinary bladder is unopacified and nondistended. There is no loculated fluid collection, free fluid, nor free air within the pelvis. No abnormal adenopathy is identified. Bony structures show no acute abnormalities. Note is made of chronic appearing bilateral L5 pars defects. IMPRESSION: 1. Unremarkable noncontrast CT of the abdomen and pelvis. 2. Incompletely visualized opacity within the lateral left lung base. Further characterization with dedicated CT chest is recommended. Dictated by: Dictated on workstation # [id number]
== END 2019-02-20 23:52 | disposition home or self-care (01) ==
LOC: EDUNIT# 19:59 → ER 20:01
DX: R10.13 Epigastric pain (principal); J43.9 Emphysema, unspecified; E78.00 Pure hypercholesterolemia, unspecified; I10 Essential (primary) hypertension; K21.9 Gastro-esophageal reflux disease without esophagitis; F31.9 Bipolar disorder, unspecified; F41.9 Anxiety disorder, unspecified; E03.9 Hypothyroidism, unspecified; E11.9 Type 2 diabetes mellitus 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s; Z87.19 Personal history of other diseases of the digestive system; Z82.49 Family history of ischemic heart disease and other diseases of the circulatory system; Z91.041 Radiographic dye allergy status; Z88.0 Allergy status to penicillin; Z88.8 Allergy status to other drugs, medicaments and biological substances; Z79.82 Long term (current) use of aspirin; Z79.4 Long term (current) use of insulin; Z77.22 Contact with and (suspected) exposure to environmental tobacco smoke (acute) (chronic); Z95.9 Presence of cardiac and vascular implant and graft, unspecified; Z90.49 Acquired absence of other specified parts of digestive tract; Z90.89 Acquired absence of other organs; Z90.710 Acquired absence of both cervix and uterus
CPT/HCPCS: 36415; 74176; 80053; 83690; 84484; 85025; 93005

== ENCOUNTER 2019-02-21 05:42 | Outpatient (CLI) | payer MEDICAID, OTHER ==
[~2019-02-21] VITALS: Ht 157.5 cm; Wt 70.3 kg
[~2019-02-21 05:42] MED LIST changes: +DICY20TA10 PO
== END 2019-02-21 11:49 | disposition home or self-care (01) ==
LOC: PREOP 05:42
PROVIDERS: ATTEND Surgery
DX: Z01.818 Encounter for other preprocedural examination (principal)

== ENCOUNTER 2019-02-21 20:19 | Outpatient (CLI) | payer MEDICAID, OTHER | END 2019-02-22 06:06 | disposition home or self-care (01) | LOC: SLEEP 20:19 | PROVIDERS: ATTEND Nurse Practitioner Family | DX: G47.33 Obstructive sleep apnea (adult) (pediatric) (principal) | CPT/HCPCS: 95810 ==

== ENCOUNTER → 2019-02-24 | Day surgery (SDC) | payer MEDICAID, OTHER ==
[~2019-02-24] MED LIST changes: +BUP/EPI 0.5% 1:200,000 (SENSORCAINE) 30 ML VIAL ONE; +CATHETER FLUSH 10 ML SYR IV PRN; +CLINDAMYCIN 600 MG/50 ML IVPB 50 ML IV ONE; +LACTATED RINGERS 1,000 ML IV PRN; +LIDOCAINE 1% INJ 20 ML 20 ML VIAL ONE
--- NOTE | 2019-02-24 08:45 | NUR ---
PT SURGERY CANCELLED AND DISCHARGED HOME PER ANESTHESIA AND DR. BRITO R/T RECENT HISTORY OF CHEST PAIN AND PT IS SCHEDULED FOR A CARDIAC STRESS TEST ON 03/01/[address] JACKSON.
== END | disposition home or self-care (01) ==
LOC: SDC 07:54
PROVIDERS: ATTEND Surgery
DX: R10.13 Epigastric pain (principal); R07.9 Chest pain, unspecified; Z53.09 Procedure and treatment not carried out because of other contraindication
CPT/HCPCS: 82962

== ENCOUNTER 2019-03-07 20:49 | Emergency (ER) | payer MEDICAID, OTHER ==
[~2019-03-07] VITALS: Ht 160 cm; Wt 68.0 kg
[~2019-03-07 20:49] MED LIST changes: -BUP/EPI 0.5% 1:200,000 (SENSORCAINE) 30 ML VIAL ONE; -CATHETER FLUSH 10 ML SYR IV PRN; -CLINDAMYCIN 600 MG/50 ML IVPB 50 ML IV ONE; -LACTATED RINGERS 1,000 ML IV PRN; -LIDOCAINE 1% INJ 20 ML 20 ML VIAL ONE
--- NOTE | 2019-03-07 21:01 | ED Lower Extremity ---
General Stated Complaint: R FOOT INJ Source: patient Exam Limitations: no limitations History of Present Illness Date Seen by Provider: March 07, 2019 Time Seen by Provider: 20:59 Initial Comments Complains of pain over the fifth metatarsal head after a fall 2 days ago. Onset: just prior to arrival Severity: moderate Pain/Injury Location: right foot Method of Injury: fell Modifying Factors: Worse With Movement Allergies and Home Medications Allergies Coded Allergies: Iodinated Contrast- Oral and IV Dye (Verified Allergy, Severe, ANAPHYLAXIS , 02/21/19) Penicillins (Verified Allergy, Severe, ANAPHYLAXIS, 02/21/19) fentanyl (Verified Allergy, Mild, GI UPSET, 01/19/19) metformin (Verified Allergy, Unknown, Rash, 02/24/19) Home Medications Albuterol Sulfate 1.25 Mg/3 Ml Vial.neb, 1.25 MG IH QID PRN for SHORTNESS OF BREATH, (Reported) Albuterol Sulfate 1 Puff Puff, 2 PUFF IH QID PRN for SHORTNESS OF BREATH, ( Reported) Alprazolam 2 Mg Tablet, 2 MG PO TID PRN for ANXIETY, (Reported) Aspirin 81 Mg Tab.chew, 81 MG PO DAILY, (Reported) Atenolol 50 Mg Tablet, 50 MG PO DAILY, (Reported) Atorvastatin Calcium 40 Mg Tablet, 40 MG PO HS, (Reported) Budesonide/Formoterol Fumarate 10.2 Gm Hfa.aer.ad, 2 PUFF IH BID, (Reported) Hydrocodone/Acetaminophen 1 Each Tablet, 1 TAB PO TID, (Reported) Insulin Aspart 300 Units/3 Ml Solution, 40 UNITS SQ TIDWM, (Reported) Insulin Determir 1,000 Units/10 Ml Soln, 70 UNITS SQ BID, (Reported) Levothyroxine Sodium 150 Mcg Tablet, 150 MCG PO DAILY, (Reported) Montelukast Sodium 10 Mg Tablet, 10 MG PO DAILY, (Reported) Oxybutynin Chloride 10 Mg Tab.er.24, 10 MG PO DAILY, (Reported) Pantoprazole Sodium 40 Mg Tablet.dr, 40 MG PO DAILY Prescribed by: MALLY BRITO on 02/02/18 144 Sucralfate 1 Gm Tablet, 1 GM PO QID Prescribed by: MALLY BRITO on 02/02/18 1449 Tiotropium [place] 1 Inh Aerp, 1 INH IH DAILY, (Reported) Patient Home Medication List Home Medication List Reviewed: Yes Review of Systems Constitutional: see HPI EENTM: see HPI Respiratory: no symptoms reported Cardiovascular: no symptoms reported Genitourinary: no symptoms reported Musculoskeletal: see HPI Skin: no symptoms reported Psychiatric/Neurological: No Symptoms Reported Past Obynaao-Npaisq-Cwzckj Hx Patient Social History Type Used: Cigarettes 2nd Hand Smoke Exposure: Yes Recent Foreign Travel: No Contact w/Someone Who Travel: No Recent Hopitalizations: No Immunizations Up To Date Tetanus Booster (TDap): Unknown PED Vaccines UTD: No Date of Pneumonia Vaccine: Jul 11, 2014 Date of Influenza Vaccine: Nov 02, 2016 Seasonal Allergies Seasonal Allergies: Yes Past Medical History Surgeries: Yes (BREAST LUMPECTOMY; EGD/COLONOSCOPY; CARDIAC CATH-NO INTERVENTION) Adenoidectomy, Appendectomy, Breast, Cardiac, Gallbladder, Hysterectomy, Tonsillectomy Respiratory: Yes (DX LUNG MASS RECENTLY) Asthma, COPD, Emphysema Currently Using CPAP: No Currently Using BIPAP: No Cardiac: Yes High Cholesterol, Hypertension Neurological: No 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 Disorders: No Female 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 Disorders: 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, 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 Sexually Transmitted Disease: No HIV/AIDS: No Genitourinary: Yes (INCONTINENCE) Gastrointestinal: Yes (DIVERTICULITIS ) Gastroesophageal Reflux, El's Esophagus, Diverticulosis, Chronic Diarrhea, Gall Bladder Disease Musculoskeletal: Yes (CHRONIC GENERALIZED PAIN ) Chronic Back Pain Endocrine: Yes Diabetes, Insulin dep, Hypothyroidsim HEENT: No Loss of Vision: Denies Hearing Impairment: Denies Cancer: Yes (LUNG MASS) Did You Recieve Any Treatments: No Psychosocial: Yes Sleep Difficulties, Anxiety, Bipolar Integumentary: No Blood Disorders: No Adverse Reaction/Blood Tranf: No (N/A) Family Medical History FH: cancer 19 MOTHER Myocardial infarction 19 FATHER (48 years old) No Pertinent Family Hx Physical Exam Vital Signs Capillary Refill : Height, Weight, BMI Height: 5'2.00" Weight: 155lbs. 0.0oz. 70.191548oo; 28.4 BMI Method:Stated General Appearance: WD/WN, no apparent distress HEENT: PERRL/EOMI, normal ENT inspection Respiratory: no respiratory distress, no accessory muscle use Hips: bilateral hip non-tender, bilateral hip normal inspection, bilateral hip normal range of motion Legs: bilateral leg non-tender, bilateral leg normal inspection, bilateral leg normal range of motion Knees: bilateral knee non-tender, bilateral knee normal inspection, bilateral knee normal range of motion Ankles: bilateral ankle non-tender, bilateral ankle normal inspection, bilateral ankle normal range of motion Feet: right foot pain, right foot other (no ecchymosis or deformity) Neurologic/Psychiatric: alert, normal mood/affect, oriented x 3 Skin: normal color, warm/dry Progress/Results/Core Measures Results/Orders My Orders Orders - GALA TALLEY APRN Foot, Right, 3 View (03/07/19 20:58) Departure Impression Primary Impression: Contusion of right foot Qualified Codes: S90.31XA - Contusion of right foot, initial encounter Disposition: HOME, SELF-CARE Condition: Stable Departure-Patient Inst. Decision time for Depature: 21:01 Referrals: [facility] (PCP/Family) Primary Care Physician Patient Instructions: Contusion (DC) Add. Discharge Instructions: 1. Return to ER for any concerns 2. Follow-up with your doctor next week 3. Images Extremities-Lower 1 - Tenderness GALA TALLEY APRN March 07, 2019 21:01
--- NOTE | 2019-03-07 21:30 | Diagnostic Imaging Report ---
INDICATION: Fall with right foot pain TECHNIQUE: AP, oblique and lateral views of the right foot are obtained. FINDINGS: No acute fracture or dislocation is identified. No abnormal lytic or sclerotic focus is seen, and there is no radiopaque foreign body. IMPRESSION: No acute abnormality. Dictated by: Dictated on workstation # [id number]
[2019-03-07 21:40] VITALS: BP 129/83
== END 2019-03-07 21:41 | disposition home or self-care (01) ==
LOC: EDUNIT# 20:49 → ER 20:49
DX: S90.31XA Contusion of right foot, initial encounter (principal); J43.9 Emphysema, unspecified; I10 Essential (primary) hypertension; E78.00 Pure hypercholesterolemia, unspecified; K21.9 Gastro-esophageal reflux disease without esophagitis; E11.9 Type 2 diabetes mellitus 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s; E03.9 Hypothyroidism, unspecified; F41.9 Anxiety disorder, unspecified; F32.9 Major depressive disorder, single episode, unspecified; Z82.49 Family history of ischemic heart disease and other diseases of the circulatory system; Z87.19 Personal history of other diseases of the digestive system; Z78.0 Asymptomatic menopausal state; Z91.041 Radiographic dye allergy status; Z79.82 Long term (current) use of aspirin; Z79.4 Long term (current) use of insulin; Z77.22 Contact with and (suspected) exposure to environmental tobacco smoke (acute) (chronic); Z90.49 Acquired absence of other specified parts of digestive tract; Z90.710 Acquired absence of both cervix and uterus; Z90.89 Acquired absence of other organs; Z95.9 Presence of cardiac and vascular implant and graft, unspecified; Z88.0 Allergy status to penicillin; Z88.8 Allergy status to other drugs, medicaments and biological substances; W19.XXXA Unspecified fall, initial encounter
CPT/HCPCS: 73630